=== PATIENT | male | born 1945 | race Caucasian/White ===

== ENCOUNTER → 2017-10-29 06:02 | Outpatient (CLI) | payer MEDICARE, OTHER, SELFPAY ==
[2017-10-29 08:13] LABS: Absolute Lymphocyte Count 3.74 X10^3/ul (0.83-4.51); Absolute Neutrophil Count 5.9 X10^3/uL (2.0-7.7); Basophil# 0.01 X10^3/uL; Basophil% 0.1 % (0-1); Eosinophil# 0.17 X10^3/uL; Eosinophils% 1.6 % (0-5); Hematocrit 43.1 % (40-54); Hemoglobin 14.3 g/dl (13.0-16.5); Lymphocyte # 3.74 X10^3/ul (4.0); Lymphocyte % 35.1 % (19-41); Mean Corp Hgb Conc 33.2 g/gl (32-36); Mean Corpuscular Volume 90.5 fL (80-94); Mean Platelet Vol. 11.2 fl (6.2-12.0); Monocyte# 0.87 X10^3/uL; Monocyte% 8.2 % (0-10); Neutrophil # 5.85 X10^3/uL (2.7-7.7); Neutrophil % 54.7 % (47-70); Platelet Count 275 K/mm3 (150-450); RBC Distribution Width CV 15.2 % (11.6-14.6); RBC Distribution Width SD 50.7 fl (35.1-43.9); Red Blood Count 4.76 M/mm3 (4.6-6.2); White Blood Count 10.7 K/mm3 (4.4-11.0)
[2017-10-29 08:20] LABS: POSITIVE COUNT NO; POSITIVE DIFFERENTIAL NO; POSITIVE MORPHOLOGY NO
[2017-10-29 08:49] LABS: ALB/GLOB Ratio 0.8 RATIO (0.9-2.4); AST(SGOT) 28 U/L (15-37); Alanine Aminotransfer ALT/SGPT 42 U/L (16-61); Albumin, Serum 3.7 g/dL (3.2-5.0); Alkaline Phosphatase 59 U/L (45-117); Anion Gap 10 (5-15); BUN 21 mg/dL (7-18); BUN/Creat Ratio 20.8 RATIO (10-20); Calcium,Total 8.7 mg/dL (8.5-10.1); Chloride 105 mmol/L (98-107); Creatinine, Serum 1.01 mg/dL (0.70-1.30); EST Glomerular Filtration Rate 77 mL/min (>60); Est Glom Filt Rate - Afr Amer 93 mL/min (>60); Globulin 4.4 g/dL (2.2-4.2); Glucose 89 mg/dL (70-110); Potassium 3.4 mmol/L (3.5-5.1); Protein, Total 8.1 g/dL (6.4-8.2); Sodium Level 140 mmol/L (136-145)
== END ==
PROVIDERS: Family Provider Family Medicine; PCP Family Medicine; Visit Provider Internal Medicine Rheumatology
DX: M06.00 Rheumatoid arthritis without rheumatoid factor, unspecified site (principal); M15.9 Polyosteoarthritis, unspecified; M47.897 Other spondylosis, lumbosacral region; M51.37 Other intervertebral disc degeneration, lumbosacral region; M47.892 Other spondylosis, cervical region; K21.9 Gastro-esophageal reflux disease without esophagitis; K51.80 Other ulcerative colitis without complications; I10 Essential (primary) hypertension; E78.5 Hyperlipidemia, unspecified; E11.9 Type 2 diabetes mellitus without complications; Z79.899 Other long term (current) drug therapy
CPT/HCPCS: 36415; 80053; 85025

== ENCOUNTER → 2017-11-26 07:30 | Outpatient (CLI) | payer MEDICARE, OTHER, SELFPAY ==
[2017-11-26 08:09] VITALS: BP 153/94; PULSE 84; RESP 18; TEMP 36.4; O2SAT 94; BMI 33.8
[2017-11-26 09:37] VITALS: BP 143/86; PULSE 71; RESP 16; TEMP 36.6
[2017-11-26 09:41] LABS: BNP,B-Type NATRIURETIC PEPTIDE 31.1 pg/mL (0-100)
[2017-11-26 09:45] VITALS: BP 141/85; PULSE 68; RESP 18; TEMP 36.2; O2SAT 91
[2017-11-26 10:00] VITALS: BP 146/85; PULSE 75; RESP 16; TEMP 36.1; O2SAT 95
[2017-11-26 10:24] VITALS: BP 140/85; PULSE 73; RESP 16; TEMP 36.4
[2017-11-26 11:28] VITALS: BP 143/84; PULSE 72; RESP 16; TEMP 36.3; O2SAT 92
== END ==
PROVIDERS: Internal Medicine Pulmonary Disease; Family Provider Family Medicine; PCP Family Medicine; Visit Provider Internal Medicine Rheumatology
DX: M06.09 Rheumatoid arthritis without rheumatoid factor, multiple sites (principal); K51.80 Other ulcerative colitis without complications; I10 Essential (primary) hypertension; R06.00 Dyspnea, unspecified
CPT/HCPCS: 36415; 83880; 85379; 96413; 96415; J7050; A4216; Q5102

== ENCOUNTER → 2017-11-27 13:52 | Outpatient (CLI) | payer MEDICARE, OTHER, SELFPAY ==
--- NOTE | 2017-11-27 13:57 | VDLE_ITS ---
Reason For Study: EDEMA RIGHT LEFT GSV is normal. GSV is normal. CFV is compressible, spontaneous, phasic, CFV is compressible, spontaneous, phasic, competent and demonstrates normal competent, and demonstrates normal augmentation. augmentation. FV is compressible, spontaneous, phasic, FV is compressible, spontaneous, phasic, competent and demonstrates normal competent and demonstrates normal augmentation. augmentation. POP V is compressible, spontaneous, phasic, POP V is compressible, spontaneous, phasic, competent and demonstrates normal competent and demonstrates normal augmentation. augmentation. T/P Trunk is compressible. T/P Trunk is compressible. PTV is compressible. PTV is compressible. RT PerV is compressible. LT PerV is compressible. Procedure Exam performed in department. The exam was diagnostic. A preliminary report was called and/or faxed to DR. Lange @ [phone] @ 2:30 pm. Interpretation Summary Deep veins of the lower extremities are bilaterally patent and compressible segmentally. There is no evidence of deep vein thrombosis on either side. Valvular competence appears intact within the proximal deep venous systems bilaterally. The greater saphenous veins appear bilaterally patent and compressible segmentally. Ordering Physician: Devon Lange Referring Physician: Jayme Yang Performed By: Terri Butler, JOE, RVT
== END ==
PROVIDERS: Family Provider Family Medicine; PCP Family Medicine; Visit Provider Internal Medicine Pulmonary Disease
DX: R60.0 Localized edema (principal); R06.00 Dyspnea, unspecified
CPT/HCPCS: 93970

== ENCOUNTER → 2017-12-05 11:07 | Outpatient (CLI) | payer MEDICARE, OTHER, SELFPAY ==
--- NOTE | 2017-12-05 11:12 | RAD_ITS ---
STUDY: X-RAY CHEST REASON FOR EXAM: Male, 72 years old. Cough. TECHNIQUE: Frontal and lateral views of the chest. COMPARISON: 11/04/2016 and 10/24/2017. CTA chest 11/04/2016. FINDINGS: The lungs are clear and expanded. There is no demonstrated pleural abnormality. Normal size heart. Right superior mediastinal widening is seen to be due to vascular tortuosity on the CTA chest. Otherwise normal mediastinum and corina. Normal visualized pulmonary arteries. Normal visualized aortic arch and descending thoracic aorta. There are diffuse degenerative changes of the visualized thoracic spine. Normal visualized ribs, clavicles, and shoulders. There is no demonstrated abnormality of the visualized soft tissue structures of the upper abdomen. RAD/Chest PA and Lateral IMPRESSION: No evidence for acute cardiopulmonary pathology. Electronically Signed: Eligio King MD at 3:36 EST , Service support ,
== END ==
PROVIDERS: Family Provider Family Medicine; PCP Family Medicine; Visit Provider Family Medicine
DX: R05 Cough (principal)
CPT/HCPCS: 71046

== ENCOUNTER → 2018-01-21 08:20 | Outpatient (CLI) | payer MEDICARE, OTHER, SELFPAY ==
[2018-01-21 08:39] VITALS: BP 149/91; PULSE 84; RESP 18; TEMP 36.4; O2SAT 93; BMI 33.6
[2018-01-21 10:01] VITALS: BP 143/93; PULSE 78; RESP 16
[2018-01-21 10:12] VITALS: BP 144/82; PULSE 74; RESP 16; TEMP 36.6
[2018-01-21 10:25] VITALS: BP 146/88; PULSE 74; RESP 16; TEMP 36.5
[2018-01-21 10:42] VITALS: BP 147/85; PULSE 74; RESP 16; TEMP 36.3; O2SAT 92
[2018-01-21 11:53] VITALS: BP 150/89; PULSE 77; RESP 16; TEMP 36.5; O2SAT 93
== END ==
PROVIDERS: Family Provider Family Medicine; PCP Family Medicine; Visit Provider Internal Medicine Rheumatology
DX: M06.09 Rheumatoid arthritis without rheumatoid factor, multiple sites (principal); K51.90 Ulcerative colitis, unspecified, without complications
CPT/HCPCS: J7050; A4216; Q5103

== ENCOUNTER 2018-01-22 08:55 | Inpatient (IN) | payer MEDICARE, OTHER, SELFPAY ==
[2018-01-22] VITALS (19 sets, daily range): BP systolic 141–195; BP diastolic 83–109; PULSE 60–114; RESP 16–24; TEMP 36.6–37.1; O2SAT 93–97; BMI 32.9; BMI 33.3
--- NOTE | 2018-01-22 09:22 | EKG12_ITS ---
Test Reason : CP/SOB Blood Pressure : / mmHG Vent. Rate : 098 BPM Atrial Rate : 098 BPM P-R Int : 170 ms QRS Dur : 090 ms QT Int : 340 ms P-R-T Axes : 037 -31 -01 degrees QTc Int : 434 ms Normal sinus rhythm Left axis deviation Septal infarct , age undetermined Inferior infarct , age undetermined Abnormal ECG Confirmed by ALBA LAUGHLIN, JAKE ([id number]), senior technical editor MANA LINTON ([id number]) on 01/24/2018 1:03:19 PM Referred By: Marycruz Yen Confirmed By:JAKE WILLIS MD
[2018-01-22] MEDS: Ipratropium/Albuterol Sulfate 3 ML AMPUL.NEB INHALATION ×2 (09:31→19:32)
[2018-01-22 09:32] LABS: Absolute Lymphocyte Count 2.24 X10^3/ul (0.83-4.51); Absolute Neutrophil Count 4.5 X10^3/uL (2.0-7.7); Basophil# 0.01 X10^3/uL; Basophil% 0.1 % (0-1); Eosinophil# 0.21 X10^3/uL; Eosinophils% 2.8 % (0-5); Hematocrit 41.6 % (40-54); Hemoglobin 13.8 g/dl (13.0-16.5); Lymphocyte # 2.24 X10^3/ul (4.0); Lymphocyte % 29.5 % (19-41); Mean Corp Hgb Conc 33.2 g/gl (32-36); Mean Corpuscular Hgb 29.7 pg (27.0-32.0); Mean Corpuscular Volume 89.7 fL (80-94); Mean Platelet Vol. 10.7 fl (6.2-12.0); Monocyte# 0.63 X10^3/uL; Monocyte% 8.3 % (0-10); Neutrophil % 59.2 % (47-70); POSITIVE COUNT NO; POSITIVE DIFFERENTIAL NO; POSITIVE MORPHOLOGY NO; Platelet Count 211 K/mm3 (150-450); RBC Distribution Width CV 14.7 % (11.6-14.6); RBC Distribution Width SD 47.6 fl (35.1-43.9); Red Blood Count 4.64 M/mm3 (4.6-6.2); White Blood Count 7.6 K/mm3 (4.4-11.0)
[2018-01-22 09:48] LABS: Anion Gap 8 (5-15); BUN 20 mg/dL (7-18); Calcium,Total 9.1 mg/dL (8.5-10.1); Chloride 103 mmol/L (98-107); Creatinine, Serum 1.33 mg/dL (0.70-1.30); EST Glomerular Filtration Rate 56 mL/min (>60); Est Glom Filt Rate - Afr Amer 68 mL/min (>60); Estimated Creatinine Clearance 46.25 ml/min; Glucose 218 mg/dL (74-106); Potassium 3.6 mmol/L (3.5-5.1); Sodium Level 138 mmol/L (136-145)
[2018-01-22] MEDS: 0.9% Normal Saline 1,000 ML 150 ML IV (09:48)
[2018-01-22] MEDS: Clopidogrel Bisulfate 75 MG Tablet PO (09:48)
--- NOTE | 2018-01-22 10:07 | RAD_ITS ---
STUDY: X-RAY CHEST REASON FOR EXAM: Male, 72 years old. Cough. TECHNIQUE: Single AP portable view of the chest. COMPARISON: December 05, 2017. FINDINGS: Cardiac monitoring leads are present. Lungs are expanded. There is mild interstitial thickening present in both lungs. There is no demonstrated pleural abnormality. There is borderline cardiomegaly. There are calcified mediastinal and hilar lymph nodes. Normal visualized pulmonary arteries. There is atherosclerotic calcification of the aortic arch with tortuosity. There are diffuse degenerative changes of the visualized thoracic spine. There are degenerative changes of both shoulders. Patient has had previous cervical spine surgery. There is no demonstrated abnormality of the visualized soft tissue structures of the upper abdomen. RAD/Chest 1 View (Portable) IMPRESSION: No radiographic evidence of acute cardiopulmonary disease. Electronically Signed: Celestina Miller MD at 10:59 EDT , Service support ,
[2018-01-22 10:10] LABS: BNP,B-Type NATRIURETIC PEPTIDE 49.6 pg/mL (0-100)
[2018-01-22] MEDS: fentaNYL 100 MCG/2 ML Ampul 50 MCG IV ×2 (10:36→13:03)
--- NOTE | 2018-01-22 10:40 | CT_ITS ---
STUDY: CTA CHEST REASON FOR EXAM: Male, 72 years old. Dyspnea and left arm pain. RADIATION DOSAGE (If Supplied By Facility): CTDIvol = ( 19.40 ) mGy, DLP = ( 676.65 ) mGycm TECHNIQUE: The examination was performed with the intravenous administration of 100 ml of Isovue 370 contrast material. Post-processing of the angiographic images was performed, with multiplanar reformation and 3D reconstruction. Individualized dose optimization techniques were used for this CT. COMPARISON: None. FINDINGS: Normal enhancement of the main pulmonary artery and right and left pulmonary arteries. Normal enhancement of the bilateral peripheral pulmonary arteries. There is no demonstrated pulmonary embolism. Normal thoracic aorta and visualized great vessels except for multifocal calcified plaque. There is no demonstrated aortic dissection. Normal heart and pericardium. Normal mediastinum. Normal hilar regions. Normal visualized trachea and bronchi. The lungs are well expanded. There is bilateral dependent atelectasis, a subcentimeter calcified granuloma within the anterior left upper lobe and minimal tubular bronchiectasis diffusely. There is an accessory azygous lobe. There is no pleural effusion. There is no pneumothorax. Normal chest wall structures. Normal osseous structures. There is a 2.5 cm left adrenal mass measuring fat density consistent with adenolipoma. CT/CTA Chest W/WO Contrast IMPRESSION: No demonstrated pulmonary embolism or arterial dissection. Bilateral dependent atelectasis. Calcified granuloma within left upper lobe. Minimal multifocal tubular bronchiectasis. Accessory azygos lobe. 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 Electronically Signed: Umair Joyce MD at 13:01 EDT , Service support ,
--- NOTE | 2018-01-22 11:34 | ED.RN ---
PT REPORTS INCREASED PAIN. DR. HE INFORMED. AWAITING FURTHER ORDERS. WILL CONTINUE TO MONITOR.
[2018-01-22] MEDS: HYDROmorphone 1 MG/ML Syringe IV (11:47)
--- NOTE | 2018-01-22 13:12 | VDUE_ITS ---
Reason For Study: PAIN Left Proximal Left jugular vein is spontaneous, widely patent, phasic, with no intraluminal echogenicity noted. Left subclavian vein is spontaneous, widely patent, phasic, with no intraluminal echogenicity noted. Left Arm Left axillary vein is spontaneous, patent, phasic, competent, compressible and demonstrates augmentation. Left brachial vein is compressible. Left cephalic vein is compressible. Left basilic vein is compressible. Left Lower Arm Left radial vein is compressible. Left ulnar vein is compressible. < Interpretation Summary Deep veins of the left upper extremity are patent and compressible segmentally. There is no evidence of deep vein thrombosis. The superficial veins of the left upper extremity, the basilic and cephalic veins, are patent and compressible. There is no evidence of left upper extremity superficial thrombophlebitis involving the veins imaged. Ordering Physician: Audrey Smith Referring Physician: SUMEET HARRY Performed By: Karen Pierre, JOE, RVT
--- NOTE | 2018-01-22 13:18 | ED.RN ---
Pt c/o increasing pain to left arm. Swelling to fingers and hand. physician aware. Pt skin warm with brisk cap refill ro finger tips. Bounding radial pulse noted.
--- NOTE | 2018-01-22 14:09 | ED.VISSUMM ---
- ER Visit Summary Date of Service: 01/22/18 Chief Complaint: [Shortness of breath and chest pain] History of Present Illness: The patient is a 72 M [presents to the emergency department chief complaint of shortness of breath that he has had ongoing for 2-3 months. 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 Patient also developed discomfort in his left arm since yesterday. Patient's had some chest soreness. Patient has been coughing which is been a chronic issue at times coughing up yellow phlegm time whitish. Patient states that he just recently finished 4 day course of his own. Patient denies any fevers at home. Patient states she has had a cough for over 3 months.] Physical Examination: [HEENT-PERRLA, EOMI. Cranial nerves II through XII grossly intact. TMs clear. Mucous membranes moist. No adenopathy. Cardiovascular-regular rate and rhythm without murmur or ectopy Lungs-aeration bilaterally. Patient has expiratory wheezes bilaterally. No accessory muscle use or retractions. Abdomen-normoactive bowel sounds, soft, nontender, no rebound or rigidity, no peritoneal signs. 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 CBC with differential showed a white count of 7.6, hemoglobin 13.8, hematocrit 42, platelets 211. Chemistries unremarkable. Troponin was less than 0.02. BNP was 49.6. CTA of the chest showed no evidence for PE or dissection venous duplex of his left arm revealed no DVT.] Emergency Department Course and Treatment: [She was medicated with fentanyl and Dilaudid and continues to complain of pain in his left wrist and hand.] Patient was given Solu-Medrol 125 mill grams IV. Patient was given a DuoNeb aerosol. Treatment Plan: [Admit.] Disposition: [Admit] Impression: [Intractable left arm pain COPD exacerbation] This note was generated with [employer] dictation software. It may contain incorrect words, spelling, and punctuation that were not noted in review of the chart prior to signing ED Disposition - Plan for ED Patient: Chief Complaint: Shortness of Breath Referrals: Jayme Yang MD [Primary Care Provider] -
[2018-01-22] MEDS: MethylPREDNISolone 125 MG/2 ML Vial IV (14:16)
--- NOTE | 2018-01-22 14:16 | ED.DCSUM_ITS ---
- ER Visit Summary Date of Service: 01/22/18 Chief Complaint: [Shortness of breath and chest pain] History of Present Illness: The patient is a 72 M [presents to the emergency department chief complaint of shortness of breath that he has had ongoing for 2- 3 months. 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 Patient also developed discomfort in his left arm since yesterday. Patient's had some chest soreness. Patient has been coughing which is been a chronic issue at times coughing up yellow phlegm time whitish. Patient states that he just recently finished 4 day course of his own. Patient denies any fevers at home. Patient states she has had a cough for over 3 months.] Physical Examination: [HEENT-PERRLA, EOMI. Cranial nerves II through XII grossly intact. TMs clear. Mucous membranes moist. No adenopathy. Cardiovascular-regular rate and rhythm without murmur or ectopy Lungs-aeration bilaterally. Patient has expiratory wheezes bilaterally. No accessory muscle use or retractions. Abdomen-normoactive bowel sounds, soft, nontender, no rebound or rigidity, no peritoneal signs. 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 CBC with differential showed a white count of 7.6, hemoglobin 13.8, hematocrit 42, platelets 211. Chemistries unremarkable. Troponin was less than 0.02. BNP was 49.6. CTA of the chest showed no evidence for PE or dissection venous duplex of his left arm revealed no DVT.] Emergency Department Course and Treatment: [She was medicated with fentanyl and Dilaudid and continues to complain of pain in his left wrist and hand.] Patient was given Solu-Medrol 125 mill grams IV. Patient was given a DuoNeb aerosol. Treatment Plan: [Admit.] Disposition: [Admit] Impression: [Intractable left arm pain COPD exacerbation] This note was generated with [employer] dictation software. It may contain incorrect words, spelling, and punctuation that were not noted in review of the chart prior to signing ED Disposition - Plan for ED Patient: Chief Complaint: Shortness of Breath Referrals: Jayme Yang MD [Primary Care Provider] -
--- NOTE | 2018-01-22 15:39 | RAD_ITS ---
STUDY: X-RAY - LEFT WRIST REASON FOR EXAM: Male, 72 years old. Right wrist pain TECHNIQUE: 3 view(s) of the wrist were obtained. COMPARISON: None. FINDINGS: Normal visualized distal radius and ulna. There is mild degenerative arthrosis of the radiocarpal articulation. Normal distal radioulnar articulation. Normal carpal bones. Normal carpal articulations. Normal carpometacarpal articulation of the thumb. Normal second through fifth carpometacarpal articulations. Large osteophytes seen off the distal third metacarpal, otherwise normal visualized metacarpal bones. The soft tissue structures are unremarkable except for 2 mm metal density in the soft tissues of the dorsal distal forearm. . RAD/Wrist min 3 Views IMPRESSION: Radiocarpal degenerative changes otherwise negative. Electronically Signed: Yong Em MD at 16:32 EDT , Service support ,
--- NOTE | 2018-01-22 15:40 | NURSING ---
Dr. Ballard's office contacted for med list to verify pt's home medication list.
--- NOTE | 2018-01-22 15:56 | PCM.HP.STD ---
Problem List (1) Cough productive of purulent sputum Status: Acute (2) Left wrist pain Status: Acute History of Present Illness Date of Admission: 01/22/18 Chief Complaint: Cough with yellow sputum production, left wrist pain The patient is a 72 year old M who was seen in the emergency room at [facility] with a chief complaint of a cough productive of yellow sputum ?1 week, patient was placed on Levaquin as an outpatient and he has been taking it for approximately 6 days, he was on 5 days of prednisone 40 mg daily also. He also complained of severe left wrist pain for the last 5 days. Patient has a history of rheumatoid arthritis and has been treated for approximately 10 years, he currently is on Remicade. Patient denies any trauma of the wrist, he denies any neck pain, patient denies any fever, chills, or hemoptysis. Patient is currently seeing a pulmonary doctor and is on CPAP, uses oxygen at night at 2 L along with his CPAP. He states he has been on CPAP for approximately a year. Evaluation in the emergency room revealed the patient to have expiratory wheezes bilaterally, chest x-ray showed no acute infiltrate, CTA of the chest was performed which showed bilateral lower lobe atelectasis along with multifocal areas of bronchiectasis which were minimal. X-rays of the patient's left wrist were not obtained by the emergency room physician Examination of the patient's wrist revealed to be tender to palpation on the left, I did not appreciate marked swelling of the left wrist. Patient was given an aerosol treatment by the emergency room physician and IV Solu-Medrol, IV pain medication was given to the patient for his left wrist pain but he continued to have pain in his left wrist despite being given fentanyl and Dilaudid. Patient will be admitted for exacerbation of COPD and left wrist pain, I have called Ward Martin to consult on the patient's wrist pain, I ordered wrist x-rays on him, he will be placed on IV Solu-Medrol and aerosol treatments. Patient requires oxygen to maintain his pulse ox above 90 at this time Past Medical History Past Medical History (Chronic Problems): Chronic Problems DM2 (diabetes mellitus, type 2) (Chronic) Inflammatory bowel disease (Chronic) Benign essential HTN (Chronic) Rheumatoid aortitis (Chronic) Allergies aspirin Allergy (Verified 01/22/18 08:55) Swelling morphine Adverse Reaction (Verified 01/22/18 08:55) UNABLE TO URINATE Home Medications: Ambulatory Orders Medication Instructions Recorded Amlodipine/Benazepril [Lotrel 1 capsule PO DAILY 07/20/13 10-40 MG Capsule] Calcium (Elemental) [Caltrate-600] 600 mg PO DAILY 07/20/13 Duloxetine Hcl [Cymbalta] 30 mg PO BID 07/20/13 Gabapentin [Neurontin] 1,200 mg PO BIDCM 07/20/13 Multivit-Min/FA/Lycopene/Lut 1 dose PO DAILY 07/20/13 [Century Mature Formula Tablet] Whitman-3 Fatty Acids/Fish Oil [Fish 1 each PO DAILY 07/20/13 Oil 1,000 mg Softgel] Finasteride [Proscar] 5 mg PO DAILY 03/14/15 Metformin HCl [Glucophage] 1,000 mg PO BIDCM 03/14/15 Balsalazide Disodium 2,250 mg PO BID 11/04/16 Simvastatin [Zocor] 40 mg PO QHS 11/04/16 Chlorthalidone [Hygroton] 50 mg PO DAILY 12/24/16 Infliximab-DYYB [Inflectra] 100 mg IV X1 02/18/17 Esomeprazole Magnesium [Nexium 22.3 mg PO DAILY 04/15/17 24Hr] Loratadine [Claritin] 10 mg PO QHS 04/15/17 Albuterol Sulfate [Ventolin Hfa] 2 puff INHALATION Q4H PRN 01/22/18 Clonidine HCl [Catapres] 0.2 mg PO BID 01/22/18 Fluticasone/Vilanterol [Breo 1 each INHALATION DAILY 01/22/18 Ellipta 100-25 Mcg INH] Glimepiride [Amaryl] 2 mg PO QHS 01/22/18 Metoprolol Tartrate [Lopressor 50 mg PO BID 01/22/18 (beta andrey)] levoFLOXacin tablet [Levaquin 500 mg PO DAILY 01/22/18 tablet] Surgical History: - - Fusion of the cervical spine, lumbar spine surgery, bilateral knee replacements, partial colon resection due to diverticulitis Psychiatric History: No pertinent psych hx Lives: Spouse/ Significant Other Smoking Status: Former smoker Alcohol: None Drugs: None - *Family History Maternal History Items: Heart Disease Paternal History Items: COPD, Heart Disease Review of Systems Constitutional: Denies: Anorexia, Chills, Fever, Night Sweats, Malaise, Weakness, Weight Change, Fatigue Eyes: Denies: Blurred vision, Cataracts, Conjunctivae Inflammation, Double vision, Pain HEENT: Denies: Difficulty Swallowing, Dysphasia, Ear Pain, Eye Pain, Head Aches, Hearing Changes, Nasal bleeding, Nasal Congestion Cardiovascular: Denies: Chest Pain, Claudication, Chest Pressure, Chest Tightness, Edema, Heaviness, Palpitations, Paroxysmal Noc. Dyspnea, Syncope Respiratory: Reports: Cough, Sputum production, Wheezing. Denies: Hemoptysis, Shortness of breath at rest, Shortness of breath upon exertion Gastrointestinal: Denies: Abdominal Pain, Constipation, Diarrhea, Hematemesis, Hematochezia, Nausea, Melena, Vomiting Genitourinary: Denies: Dysuria, Frequency, Hematuria, Hesitancy, Nocturia, Retention, Urgency Musculoskeletal: Reports: Hand Pain - Left Hand and wrist pain, Joint Pain - Left wrist pain, Joint Tenderness - Left wrist is tender to palpation. Denies: Foot Pain, Joint stiffness, Joint swelling, Leg Pain, Shoulder Pain Skin: Denies: Dryness, Jaundice, Pruritis, Rash Neurological: Denies: Balance problems, Blurred vision, Double vision, Slurred speech, Difficulty swallowing, Focal weakness, Headaches, Incoordination, Numbness, Tingling Psychiatric: Denies: Anxiety, Depression, Homicidal Ideations, Suicidal Ideations Endocrine: Denies: Change in Body Habitus, Heat/ Cold Intolerance, Polydipsia, Polyuria Hematologic/ Lymphatic: Denies: Adenopathy, Anemia, Easy Bruising, Easy Bleeding, Petechiae, Purpura VTE Information - Inpt Only VTE Present on Admission: No VTE Mechan Device Prophylaxis: None VTE Pharm Prophylaxis ordered?: Yes Patient Problems: Active and Suspected Problems Cough productive of purulent sputum (Acute) Left wrist pain (Acute) - Physical Exam General: Alert, Oriented x3, Cooperative, No apparent distress, Well developed, Well nourished HEENT: Atraumatic, PERRLA, EOMI, Normocephalic Oral: Moist Mucosa Neck: Supple, No JVD, Negative Carotid Bruits, No Nuchal Rigidity, Trachea Midline, Thyroid Normal Size and Texture Lungs: Normal air movement, No rhonchi, Rales - There are mild inspiratory rales at the bases bilaterally, Wheezes - Patient has diffuse expiratory wheezes bilaterally Cardiovascular: Regular rate, Regular Rhythm, Normal S1, Normal S2, No murmurs, No Ectopic Activity, PMI Normal, No rub noted, No Gallop Abdomen: Bowel Sounds Present, Soft, Non Tender, Non-Distended, No hernias noted Extremities: No clubbing, No cyanosis, No edema, Capillary Refill Less than 3 Seconds, Tenderness - Patient has tenderness to palpation over the left wrist and proximal hand area Skin: No rashes, No breakdown Musculoskeletal: No Muscle Wasting, Tenderness - tenderness over the left wrist and proximal hand area to palpation Neurological: Cranial nerves II-XII grossly intact, Neuro grossly intact, Sensory exam intact to light touch and pain, Coordination normal Psych/Mental Status: Normal Affect, Appropriate, Alert and oriented to time, place, person, mood and affect Vital Signs Temp Pulse Resp BP Pulse Ox 98.7 F 76 16 145/86 H 97 01/22/18 14:18 01/22/18 14:18 01/22/18 14:18 01/22/18 14:18 01/22/18 14:18 Assessment/Plan Active and Suspected Problems Cough productive of purulent sputum (Acute) Left wrist pain (Acute) 1 acute exacerbation of COPD-patient will be admitted to [facility], IV Solu-Medrol will be given, patient will be kept on oral Levaquin, oxygen saturation will be monitored, aerosol treatments will be given, respiratory panel will be obtained #2 left wrist pain-probably secondary to flareup of rheumatoid disease, patient's left wrist will be x-ray, he will be seen by orthopedic surgery-I contacted Dr. Ward Martin for consultation, patient will be given IV pain meds as well as IV corticosteroids #3 rheumatoid arthritis #4 obstructive sleep apnea-patient uses BiPAP at night #5 hypoxia-probably secondary to #1, patient's O2 sat will be monitored #6 ulcerative colitis-patient takes chronic medication for this, this will be continued #7 type 2 diabetes-sliding scale insulin will be administered per protocol, patient will need to be off his metformin due to his CTA of his chest Code Visit [facility]
[2018-01-22] MEDS: Albuterol 2.5 MG/3 ML VIAL.NEB. INHALATION (16:02)
--- NOTE | 2018-01-22 16:08 | HP.PCM_ITS ---
Problem List (1) Cough productive of purulent sputum Status: Acute (2) Left wrist pain Status: Acute History of Present Illness Date of Admission: 01/22/18 Chief Complaint: Cough with yellow sputum production, left wrist pain The patient is a 72 year old M who was seen in the emergency room at [facility] with a chief complaint of a cough productive of yellow sputum ?1 week, patient was placed on Levaquin as an outpatient and he has been taking it for approximately 6 days, he was on 5 days of prednisone 40 mg daily also. He also complained of severe left wrist pain for the last 5 days. Patient has a history of rheumatoid arthritis and has been treated for approximately 10 years, he currently is on Remicade. Patient denies any trauma of the wrist, he denies any neck pain, patient denies any fever, chills, or hemoptysis. Patient is currently seeing a pulmonary doctor and is on CPAP, uses oxygen at night at 2 L along with his CPAP. He states he has been on CPAP for approximately a year. Evaluation in the emergency room revealed the patient to have expiratory wheezes bilaterally, chest x-ray showed no acute infiltrate, CTA of the chest was performed which showed bilateral lower lobe atelectasis along with multifocal areas of bronchiectasis which were minimal. X-rays of the patient's left wrist were not obtained by the emergency room physician Examination of the patient's wrist revealed to be tender to palpation on the left, I did not appreciate marked swelling of the left wrist. Patient was given an aerosol treatment by the emergency room physician and IV Solu-Medrol, IV pain medication was given to the patient for his left wrist pain but he continued to have pain in his left wrist despite being given fentanyl and Dilaudid. Patient will be admitted for exacerbation of COPD and left wrist pain , I have called Ward Martin to consult on the patient's wrist pain, I ordered wrist x-rays on him, he will be placed on IV Solu-Medrol and aerosol treatments. Patient requires oxygen to maintain his pulse ox above 90 at this time Past Medical History Past Medical History (Chronic Problems): Chronic Problems DM2 (diabetes mellitus, type 2) (Chronic) Inflammatory bowel disease (Chronic) Benign essential HTN (Chronic) Rheumatoid aortitis (Chronic) Allergies aspirin Allergy (Verified 01/22/18 08:55) Swelling morphine Adverse Reaction (Verified 01/22/18 08:55) UNABLE TO URINATE Home Medications: Ambulatory Orders Medication Instructions Recorded Amlodipine/Benazepril [Lotrel 1 capsule PO DAILY 07/20/13 10-40 MG Capsule] Calcium (Elemental) [Caltrate-600] 600 mg PO DAILY 07/20/13 Duloxetine Hcl [Cymbalta] 30 mg PO BID 07/20/13 Gabapentin [Neurontin] 1,200 mg PO BIDCM 07/20/13 Multivit-Min/FA/Lycopene/Lut 1 dose PO DAILY 07/20/13 [Century Mature Formula Tablet] [place]-3 Fatty Acids/Fish Oil [Fish 1 each PO DAILY 07/20/13 Oil 1,000 mg Softgel] Finasteride [Proscar] 5 mg PO DAILY 03/14/15 Metformin HCl [Glucophage] 1,000 mg PO BIDCM 03/14/15 Balsalazide Disodium 2,250 mg PO BID 11/04/16 Simvastatin [Zocor] 40 mg PO QHS 11/04/16 Chlorthalidone [Hygroton] 50 mg PO DAILY 12/24/16 Infliximab-DYYB [Inflectra] 100 mg IV X1 02/18/17 Esomeprazole Magnesium [Nexium 22.3 mg PO DAILY 04/15/17 24Hr] Loratadine [Claritin] 10 mg PO QHS 04/15/17 Albuterol Sulfate [Ventolin Hfa] 2 puff INHALATION Q4H PRN 01/22/18 Clonidine HCl [Catapres] 0.2 mg PO BID 01/22/18 Fluticasone/Vilanterol [Breo 1 each INHALATION DAILY 01/22/18 Ellipta 100-25 Mcg INH] Glimepiride [Amaryl] 2 mg PO QHS 01/22/18 Metoprolol Tartrate [Lopressor 50 mg PO BID 01/22/18 (beta andrey)] levoFLOXacin tablet [Levaquin 500 mg PO DAILY 01/22/18 tablet] Surgical History: - - Fusion of the cervical spine, lumbar spine surgery, bilateral knee replacements, partial colon resection due to diverticulitis Psychiatric History: No pertinent psych hx Lives: Spouse/ Significant Other Smoking Status: Former smoker Alcohol: None Drugs: None - *Family History Maternal History Items: Heart Disease Paternal History Items: COPD, Heart Disease Review of Systems Constitutional: Denies: Anorexia, Chills, Fever, Night Sweats, Malaise, Weakness , Weight Change, Fatigue Eyes: Denies: Blurred vision, Cataracts, Conjunctivae Inflammation, Double vision, Pain HEENT: Denies: Difficulty Swallowing, Dysphasia, Ear Pain, Eye Pain, Head Aches , Hearing Changes, Nasal bleeding, Nasal Congestion Cardiovascular: Denies: Chest Pain, Claudication, Chest Pressure, Chest Tightness, Edema, Heaviness, Palpitations, Paroxysmal Noc. Dyspnea, Syncope Respiratory: Reports: Cough, Sputum production, Wheezing. Denies: Hemoptysis, Shortness of breath at rest, Shortness of breath upon exertion Gastrointestinal: Denies: Abdominal Pain, Constipation, Diarrhea, Hematemesis, Hematochezia, Nausea, Melena, Vomiting Genitourinary: Denies: Dysuria, Frequency, Hematuria, Hesitancy, Nocturia, Retention, Urgency Musculoskeletal: Reports: Hand Pain - Left Hand and wrist pain, Joint Pain - Left wrist pain, Joint Tenderness - Left wrist is tender to palpation. Denies: Foot Pain, Joint stiffness, Joint swelling, Leg Pain, Shoulder Pain Skin: Denies: Dryness, Jaundice, Pruritis, Rash Neurological: Denies: Balance problems, Blurred vision, Double vision, Slurred speech, Difficulty swallowing, Focal weakness, Headaches, Incoordination, Numbness, Tingling Psychiatric: Denies: Anxiety, Depression, Homicidal Ideations, Suicidal Ideations Endocrine: Denies: Change in Body Habitus, Heat/ Cold Intolerance, Polydipsia, Polyuria Hematologic/ Lymphatic: Denies: Adenopathy, Anemia, Easy Bruising, Easy Bleeding , Petechiae, Purpura VTE Information - Inpt Only VTE Present on Admission: No VTE Mechan Device Prophylaxis: None VTE Pharm Prophylaxis ordered?: Yes Patient Problems: Active and Suspected Problems Cough productive of purulent sputum (Acute) Left wrist pain (Acute) - Physical Exam General: Alert, Oriented x3, Cooperative, No apparent distress, Well developed, Well nourished HEENT: Atraumatic, PERRLA, EOMI, Normocephalic Oral: Moist Mucosa Neck: Supple, No JVD, Negative Carotid Bruits, No Nuchal Rigidity, Trachea Midline, Thyroid Normal Size and Texture Lungs: Normal air movement, No rhonchi, Rales - There are mild inspiratory rales at the bases bilaterally, Wheezes - Patient has diffuse expiratory wheezes bilaterally Cardiovascular: Regular rate, Regular Rhythm, Normal S1, Normal S2, No murmurs, No Ectopic Activity, PMI Normal, No rub noted, No Gallop Abdomen: Bowel Sounds Present, Soft, Non Tender, Non-Distended, No hernias noted Extremities: No clubbing, No cyanosis, No edema, Capillary Refill Less than 3 Seconds, Tenderness - Patient has tenderness to palpation over the left wrist and proximal hand area Skin: No rashes, No breakdown Musculoskeletal: No Muscle Wasting, Tenderness - tenderness over the left wrist and proximal hand area to palpation Neurological: Cranial nerves II-XII grossly intact, Neuro grossly intact, Sensory exam intact to light touch and pain, Coordination normal Psych/Mental Status: Normal Affect, Appropriate, Alert and oriented to time, place, person, mood and affect Vital Signs Temp Pulse Resp BP Pulse Ox 98.7 F 76 16 145/86 H 97 01/22/18 14:18 01/22/18 14:18 01/22/18 14:18 01/22/18 14:18 01/22/18 14:18 Assessment/Plan Active and Suspected Problems Cough productive of purulent sputum (Acute) Left wrist pain (Acute) 1 acute exacerbation of COPD-patient will be admitted to [facility], IV Solu- Medrol will be given, patient will be kept on oral Levaquin, oxygen saturation will be monitored, aerosol treatments will be given, respiratory panel will be obtained #2 left wrist pain-probably secondary to flareup of rheumatoid disease, patient' s left wrist will be x-ray, he will be seen by orthopedic surgery-I contacted Dr. Ward Martin for consultation, patient will be given IV pain meds as well as IV corticosteroids #3 rheumatoid arthritis #4 obstructive sleep apnea-patient uses BiPAP at night #5 hypoxia-probably secondary to #1, patient's O2 sat will be monitored #6 ulcerative colitis-patient takes chronic medication for this, this will be continued #7 type 2 diabetes-sliding scale insulin will be administered per protocol, patient will need to be off his metformin due to his CTA of his chest Code [facility]
[2018-01-22 17:10] LABS: Bedside Glucose 168 mg/dL (70-110)
[2018-01-22] MEDS: Gabapentin 600 MG Tablet 1200 MG PO (17:32)
[2018-01-22] MEDS: oxyCODONE 5 MG Tablet PO (17:32)
[2018-01-22] MEDS: BALSALAZIDE DISODIUM 750 MG CAPSULE 2250 MG PO (18:17)
[2018-01-22] MEDS: MethylPREDNISolone 125 MG/2 ML Vial 60 MG IV (21:05)
[2018-01-22] MEDS: Heparin Injection (Vial) 5,000 UNIT/ML VIAL 5000 UNIT SC (21:06)
[2018-01-22] MEDS: cloNIDine HCl 0.2 MG Tablet PO (21:12)
[2018-01-22] MEDS: Glimepiride 2 MG Tablet PO (21:12)
[2018-01-22] MEDS: Metoprolol Tartrate 50 MG Tablet PO (21:12)
[2018-01-22] MEDS: DULoxetine Hcl 30 MG Capsule PO (21:13)
[2018-01-22 21:21] LABS: Bedside Glucose 295 mg/dL (70-110)
[2018-01-23] VITALS (13 sets, daily range): BP systolic 143–175; BP diastolic 86–102; PULSE 89–115; RESP 11–26; TEMP 36.6–36.9; O2SAT 93–97
[2018-01-23] MEDS: Ipratropium/Albuterol Sulfate 3 ML AMPUL.NEB INHALATION ×4 (01:31→19:07)
[2018-01-23] MEDS: Heparin Injection (Vial) 5,000 UNIT/ML VIAL 5000 UNIT SC ×3 (06:22→21:27)
[2018-01-23] MEDS: MethylPREDNISolone 125 MG/2 ML Vial 60 MG IV ×3 (06:22→21:28)
[2018-01-23] MEDS: levoFLOXacin 500 MG Tablet PO (06:23)
[2018-01-23 06:30] LABS: Bedside Glucose 237 mg/dL (70-110)
--- NOTE | 2018-01-23 06:56 | PCM.CONS.GEN ---
Reason for Consult Date of Consultation: 01/23/18 Reason for Consultation: Left wrist pain History of Present Illness: The patient is a 72 year old M who is a patient of Dr. Poncho Miller's practice. Patient was having some difficulty breathing yesterday and having severe pain in his wrist that Tylenol was not alleviating. Because of this combination of issues he did present to the emergency department. They were unable to get his pain under control of his wrist. He has had pain in his wrist for approximately 6 days. He does have a history of rheumatoid arthritis and has been treated on Remicade for approximately 10 years. He denies any trauma or falling. He does have a pulmonary doctor and has had exacerbation of COPD which she was admitted for. He uses 2 L of oxygen at night as well as a CPAP that he is used for approximately 1 year. Patient was admitted to the hospitalist service and orthopedics was subsequently consulted for this wrist pain. He states that he has had essentially complete resolution of his symptoms this morning he does have some swelling in the hand and fingers but otherwise he is doing quite well Past Medical History Past Medical History (Chronic Problems): Chronic Problems DM2 (diabetes mellitus, type 2) (Chronic) Inflammatory bowel disease (Chronic) Benign essential HTN (Chronic) Rheumatoid aortitis (Chronic) Allergies aspirin Allergy (Verified 01/22/18 08:55) Swelling morphine Adverse Reaction (Verified 01/22/18 08:55) UNABLE TO URINATE Home Medications: Ambulatory Orders Medication Instructions Recorded Amlodipine/Benazepril [Lotrel 1 capsule PO DAILY 07/20/13 10-40 MG Capsule] Calcium (Elemental) [Caltrate-600] 600 mg PO DAILY 07/20/13 Duloxetine Hcl [Cymbalta] 30 mg PO BID 07/20/13 Gabapentin [Neurontin] 1,200 mg PO BIDCM 07/20/13 Multivit-Min/FA/Lycopene/Lut 1 dose PO DAILY 07/20/13 [Century Mature Formula Tablet] [place]-3 Fatty Acids/Fish Oil [Fish 1 each PO DAILY 07/20/13 Oil 1,000 mg Softgel] Finasteride [Proscar] 5 mg PO DAILY 03/14/15 Metformin HCl [Glucophage] 1,000 mg PO BIDCM 03/14/15 Balsalazide Disodium 2,250 mg PO BID 11/04/16 Simvastatin [Zocor] 40 mg PO QHS 11/04/16 Chlorthalidone [Hygroton] 50 mg PO DAILY 12/24/16 Infliximab-DYYB [Inflectra] 100 mg IV X1 02/18/17 Esomeprazole Magnesium [Nexium 22.3 mg PO DAILY 04/15/17 24Hr] Loratadine [Claritin] 10 mg PO QHS 04/15/17 Albuterol Sulfate [Ventolin Hfa] 2 puff INHALATION Q4H PRN 01/22/18 Clonidine HCl [Catapres] 0.2 mg PO BID 01/22/18 Fluticasone/Vilanterol [Breo 1 each INHALATION DAILY 01/22/18 Ellipta 100-25 Mcg INH] Glimepiride [Amaryl] 2 mg PO QHS 01/22/18 Ipratropium/Albuterol Sulfate 1 vial INHALATION Q4H PRN 01/22/18 [Duoneb] Metoprolol Tartrate [Lopressor 50 mg PO BID 01/22/18 (beta andrey)] levoFLOXacin tablet [Levaquin 500 mg PO DAILY 01/22/18 tablet] Surgical History: - - Fusion of the cervical spine, lumbar spine surgery, bilateral knee replacements, partial colon resection due to diverticulitis Psychiatric History: No pertinent psych hx Lives: Spouse/ Significant Other Smoking Status: Former smoker Alcohol: None Drugs: None - *Family History Maternal History Items: Heart Disease Paternal History Items: COPD, Heart Disease Review of Systems Constitutional: Denies: Chills, Fever, Weight Change HEENT: Denies: Head Aches, Sinus Congestion, Sinus Drainage Cardiovascular: Denies: Chest Pain, Palpitations Respiratory: Reports: Cough, Shortness of Breath Gastrointestinal: Denies: Abdominal Pain, Nausea, Vomiting Genitourinary: Denies: Dysuria Musculoskeletal: Reports: - - Per history of present illness Skin: Denies: Rash, Wounds Neurological: Denies: Numbness, Tingling, Focal weakness Psychiatric: Denies: Anxiety, Depression, Homicidal Ideations, Suicidal Ideations Patient Problems: Active and Suspected Problems Cough productive of purulent sputum (Acute) Left wrist pain (Acute) - Physical Exam General: Alert, Oriented x3, Cooperative HEENT: Atraumatic, PERRLA, EOMI, Normocephalic Neck: Supple, No JVD Cardiovascular: Regular rate Abdomen: Soft, Non Tender Skin: No rashes, No breakdown Musculoskeletal: - - Focused examination patient's left wrist reveals him to have some minimal swelling to the wrist. He has pain-free active range of motion of the wrist. There is some mild swelling into his fingers. Extension is 45? flexion and 60? he lacks approximately 5% of full composite fist formation secondary to some swelling he is nontender to palpation at the wrist. Full elbow range of motion is noted. Radial pulses 2+. Neurovascularly he is intact. Neurological: Cranial nerves II-XII grossly intact Psych/Mental Status: Normal Affect Vital Signs Temp Pulse Resp BP Pulse Ox 97.9 F 91 13 175/102 H 97 01/23/18 03:00 01/23/18 03:30 01/23/18 03:30 01/23/18 03:00 01/23/18 03:30 Oxygen Flow Rate (L/min) 3 Oxygen Delivery Method Nasal Cannula Weight: 212 lb 11.937 oz Body Mass Index (BMI) 33.3 POC Glucose 01/23/18 01/22/18 01/22/18 06:21 21:16 17:02 POC Glucose 237 H 295 H 168 H Assessment/Plan Active and Suspected Problems Cough productive of purulent sputum (Acute) Left wrist pain (Acute) Left wrist pain History of rheumatoid arthritis Left wrist osteoarthritis I personally reviewed patient's x-rays. These are negative for acute abnormality. Patient does have positive ulnar variance and mild to moderate osteoarthritic changes at the radiocarpal joint. He is currently not having any issue and I suspect that the IV Solu-Medrol has decreased the inflammation in his wrist which could be associated to his history of rheumatoid arthritis or his osteoarthritis. No further intervention is necessary for the rest and patient is certainly welcome to follow with in the future for further evaluation. Orthopedically stable. Thank you for allowing me to assist in the care of this patient
--- NOTE | 2018-01-23 07:17 | PCM.PN.HOSP ---
Patient Problems: Active and Suspected Problems Cough productive of purulent sputum (Acute) Left wrist pain (Acute) Subjective: Patient is a 72-year-old gentleman with past medical history cigar for inflammatory bowel disease, diabetes, hypertension chronic hypoxic respiratory failure sleep apnea who presented with progressive shortness of breath an assessment of obesity with acute exacerbation was made admitted to regular nursing floor for further management 01/23/2018: Patient seen still complains of persistent cough and rib pain Objective: GENERAL: cooperative and alert, HEENT: neck is supple, normal thyroid, CHEST: Diminished to auscultation bilaterally, HEART: Regular S1 S2, no audible murmurs ABDOMEN: soft, non-tender, normoactive bowel sounds, RECTAL: deferred MUSCULOSKELETAL: Full range of motion in all major muscle groups. EXTREMITIES: No edema, no clubbing, no cyanosis. [employer]: Awake, lateralizing signs SKIN: No rash, Vitals/I&O's: Vital Signs Temp Pulse Resp BP Pulse Ox 97.9 F 91 13 175/102 H 97 01/23/18 03:00 01/23/18 03:30 01/23/18 03:30 01/23/18 03:00 01/23/18 03:30 Oxygen Flow Rate (L/min) 3 Oxygen Delivery Method Nasal Cannula Weight: 96.5 kg Body Mass Index (BMI) 33.3 Laboratory Results 01/22/18 17:02: POC Glucose 168 H 01/22/18 21:16: POC Glucose 295 H 01/23/18 06:21: POC Glucose 237 H Current Medications Albuterol Sulfate (Ventolin Aerosols) 2.5 mg INHALATION Q2H PRN PRN PRN Reason: DYSPNEA Last Admin: 01/22/18 16:02 Dose: 2.5 mg Albuterol/Ipratropium (Duoneb) 3 ml INHALATION Q6H.RT JOHANNA Last Admin: 01/23/18 01:31 Dose: 3 ml Amlodipine Besylate (Norvasc) 10 mg PO DAILY JOHANNA Balsalazide (Balsalazide Disodium) 2,250 mg PO BID JOHANNA Last Admin: 01/22/18 18:17 Dose: 2,250 mg Chlorthalidone (Hygroton) 50 mg PO DAILY [facility] Clonidine (Catapres) 0.2 mg PO BID JOHANNA Last Admin: 01/22/18 21:12 Dose: 0.2 mg Duloxetine HCl (Cymbalta) 30 mg PO BID [facility] Last Admin: 01/22/18 21:13 Dose: 30 mg Fentanyl Citrate (Sublimaze (100mcg Ampule)) 50 mcg IV Q3H PRN PRN PRN Reason: SEVERE PAIN (6-10/10) Finasteride (Proscar) 5 mg PO DAILY [facility] Gabap[facility] ([facility]ontin) [facility] Last Admin: 01/22/18 17:32 Dose: 1,200 mg Glimepiride (Amaryl) 2 mg PO QHS [facility] Last Admin: 01/22/18 21:12 Dose: 2 mg Heparin Sodium (Porcine) (Heparin Na) 5,000 unit SC Q8 [facility] Last Admin: 01/23/18 06:22 Dose: 5,000 unit Insulin Aspart (Novolog Flexpen (Bkc)) 0 units SC ACHS [facility] PRN Reason: Protocol Last Admin: 01/23/18 06:21 Dose: 4 u Levofloxacin (Levaquin Tablet) 500 mg PO DAILY@0600 [facility] Stop: 01/25/18 06:01 Last Admin: 01/23/18 06:23 Dose: 500 mg Lisinopril (Zestril) 40 mg PO DAILY [facility] Methylprednisolone (Solu-Medrol) 60 mg IV Q8 [facility] Last Admin: 01/23/18 06:22 Dose: 60 mg Metoprolol Tartrate (Lopressor (Beta Kenji)) 50 mg PO BID [facility] Last Admin: 01/22/18 21:12 Dose: 50 mg Oxycodone HCl (Oxyir) 5 - 10 mg PO Q4H PRN PRN PRN Reason: MOD-SEVERE PAIN (4-10/10) Last Admin: 01/22/18 17:32 Dose: 5 mg Pantoprazole Sodium (Protonix) 20 mg PO BID [facility] Sodium Chloride () 5 - 30 ml IV UD PRN PRN Reason: SALINE FLUSH Medical Necessity - Tobacco Use Smoking Status: Former smoker Assessment/Plan Active and Suspected Problems Cough productive of purulent sputum (Acute) Left wrist pain (Acute) Patient is a 72-year-old gentleman with past medical history cigar for inflammatory bowel disease, diabetes, hypertension chronic hypoxic respiratory failure sleep apnea who presented with progressive shortness of breath an assessment of obesity with acute exacerbation was made admitted to regular nursing floor for further management 1. COPD with acute exacerbation: Patient has been admitted to regular nursing floor where he is currently being managed with bronchodilator treatment in addition to steroids biotics. Please on supplemental oxygen titrated to keep oxygen saturation greater than 90 2. Hypertension-blood pressure controlled, home medications continued with dose adjustment as needed 3. Dyslipidemia-patient is on statin therapy, continued at home dose 4. Diabetes mellitus type 2 did continue with home regimen also placed on Accu-Cheks before meals and at bedtime with sliding scale coverage 5. Rheumatoid arthritis 6. Inflammatory bowel disease: Continue Remicade and balsalazide. 7. Obesity with BMI of 33.3; weight loss advised 8. DVT prophylaxis: Subcu Heparin Code Visit Inpatient E&M: 35071 Subs Hosp L3
[2018-01-23] MEDS: BALSALAZIDE DISODIUM 750 MG CAPSULE 2250 MG PO ×2 (09:27→21:29)
[2018-01-23] MEDS: cloNIDine HCl 0.2 MG Tablet PO ×2 (09:28→21:26)
[2018-01-23] MEDS: DULoxetine Hcl 30 MG Capsule PO ×2 (09:28→21:26)
[2018-01-23] MEDS: Gabapentin 600 MG Tablet 1200 MG PO ×2 (09:28→16:58)
[2018-01-23] MEDS: Metoprolol Tartrate 50 MG Tablet PO ×2 (09:29→21:25)
[2018-01-23] MEDS: Chlorthalidone 50 MG Tablet PO (09:29)
[2018-01-23] MEDS: Finasteride 5 MG Tablet PO (09:30)
[2018-01-23] MEDS: Pantoprazole Sodium 20 MG Tablet PO ×2 (09:30→21:25)
[2018-01-23] MEDS: amLODIPine 10 MG Tablet PO (09:30)
[2018-01-23] MEDS: Lisinopril 40 MG Tablet PO (09:30)
[2018-01-23 12:00] LABS: Bedside Glucose 212 mg/dL (70-110)
--- NOTE | 2018-01-23 12:07 | CASEMGMT ---
See assessment. SW spoke w/pt in room. Pt is normally independent at home, lives home w/. Also, pt's son is on hospice, dying from cancer and is staying at their home. Pt, his and daughter are caring for their son. Support given. Pt also states he gets an infusion every 8 weeks here at the hospital. Pt spoke about frustration w/billing, w/infusion suite, SW offered supportive listening to pt. SW encouraged pt, when it comes to billing, to ask questions to make sure things are billed correctly. Pt states he does do this. No homegoing needs are anticipated, though SW/CM remains available should any needs arise. BENNY Spivey, INSIDE STEWARD/STEWARDESS
[2018-01-23 16:56] LABS: Bedside Glucose 219 mg/dL (70-110)
[2018-01-23] MEDS: 0.9% NaCl Peripheral Flush Adult/Peds IV ×2 (19:54→21:31)
[2018-01-23] MEDS: fentaNYL 100 MCG/2 ML Ampul 50 MCG IV (19:54)
[2018-01-23] MEDS: guaiFENesin 1,200 MG Tablet 1200 MG PO (21:25)
[2018-01-23] MEDS: Glimepiride 2 MG Tablet PO (21:26)
[2018-01-23] MEDS: oxyCODONE 5 MG Tablet PO (21:28)
[2018-01-23 22:06] LABS: Bedside Glucose 308 mg/dL (70-110)
[2018-01-24] VITALS (11 sets, daily range): BP systolic 153–173; BP diastolic 76–98; PULSE 87–101; RESP 11–20; TEMP 36.4–37.1; O2SAT 93–98
[2018-01-24] MEDS: Ipratropium/Albuterol Sulfate 3 ML AMPUL.NEB INHALATION ×2 (01:27→07:07)
[2018-01-24] MEDS: levoFLOXacin 500 MG Tablet PO (05:04)
[2018-01-24] MEDS: oxyCODONE 5 MG Tablet PO (05:04)
[2018-01-24] MEDS: MethylPREDNISolone 125 MG/2 ML Vial 60 MG IV (05:05)
[2018-01-24] MEDS: Heparin Injection (Vial) 5,000 UNIT/ML VIAL 5000 UNIT SC (05:05)
[2018-01-24] MEDS: 0.9% NaCl Peripheral Flush Adult/Peds IV (05:06)
[2018-01-24 06:51] LABS: Bedside Glucose 197 mg/dL (70-110)
--- NOTE | 2018-01-24 07:51 | PCM.DC ---
- Discharge Diagnoses Current Active Problems: Current Active and Chronic Problems Cough productive of purulent sputum (Acute) Left wrist pain (Acute) Allergies/Adverse Reactions: Allergies aspirin Allergy (Verified 01/22/18 08:55) Swelling morphine Adverse Reaction (Verified 01/22/18 08:55) UNABLE TO URINATE Medications to take at Discharge Amlodipine/Benazepril [Lotrel 10-40 MG Capsule] 1 capsule PO DAILY 07/20/13 Calcium (Elemental) [Caltrate-600] 600 mg PO DAILY 07/20/13 Duloxetine Hcl [Cymbalta] 30 mg PO BID 07/20/13 Gabapentin [Neurontin] 1,200 mg PO BIDCM 07/20/13 Multivit-Min/FA/Lycopene/Lut [Century Mature Formula Tablet] 1 dose PO DAILY 07/20/13 [place]-3 Fatty Acids/Fish Oil [Fish Oil 1,000 mg Softgel] 1 each PO DAILY 07/20/13 Finasteride [Proscar] 5 mg PO DAILY 03/14/15 Metformin HCl [Glucophage] 1,000 mg PO BIDCM 03/14/15 Balsalazide Disodium 2,250 mg PO BID 11/04/16 Simvastatin [Zocor] 40 mg PO QHS 11/04/16 Chlorthalidone [Hygroton] 50 mg PO DAILY 12/24/16 Infliximab-DYYB [Inflectra] 100 mg IV X1 02/18/17 Esomeprazole Magnesium [Nexium 24Hr] 22.3 mg PO DAILY 04/15/17 Loratadine [Claritin] 10 mg PO QHS 04/15/17 Albuterol Sulfate [Ventolin Hfa] 2 puff INHALATION Q4H PRN 01/22/18 Clonidine HCl [Catapres] 0.2 mg PO BID 01/22/18 Fluticasone/Vilanterol [Breo Ellipta 100-25 Mcg INH] 1 each INHALATION DAILY 01/22/18 Glimepiride [Amaryl] 2 mg PO QHS 01/22/18 Ipratropium/Albuterol Sulfate [Duoneb] 1 vial INHALATION Q4H PRN 01/22/18 Metoprolol Tartrate [Lopressor (beta andrey)] 50 mg PO BID 01/22/18 Doxycycline 100 mg PO BID #14 cap 01/24/18 Guaifenesin Dm [Robitussin Dm] 10 ml PO Q4H #300 ml 01/24/18 Prednisone 10 mg PO UD #30 tab 01/24/18 The following prescriptions were given: Doxycycline 100 mg PO BID #14 cap Guaifenesin Dm [Robitussin Dm] 10 ml PO Q4H #300 ml Prednisone 10 mg PO UD #30 tab Primary Care Physician: Jayme Yang MD [Primary Care Provider] - Please follow up with your Primary Care Physician in: in 1-2 weeks Please Follow Up With: Devon Lange MD When: in 5-7 days Proposed Discharge Date: 01/24/18
--- NOTE | 2018-01-24 07:59 | DCINST_ITS ---
- Discharge Diagnoses Current Active Problems: Current Active and Chronic Problems Cough productive of purulent sputum (Acute) Left wrist pain (Acute) Allergies/Adverse Reactions: Allergies aspirin Allergy (Verified 01/22/18 08:55) Swelling morphine Adverse Reaction (Verified 01/22/18 08:55) UNABLE TO URINATE Medications to take at Discharge Amlodipine/Benazepril [Lotrel 10-40 MG Capsule] 1 capsule PO DAILY 07/20/13 Calcium (Elemental) [Caltrate-600] 600 mg PO DAILY 07/20/13 Duloxetine Hcl [Cymbalta] 30 mg PO BID 07/20/13 Gabapentin [Neurontin] 1,200 mg PO BIDCM 07/20/13 Multivit-Min/FA/Lycopene/Lut [Century Mature Formula Tablet] 1 dose PO DAILY [place]-3 Fatty Acids/Fish Oil [Fish Oil 1,000 mg Softgel] 1 each PO DAILY Finasteride [Proscar] 5 mg PO DAILY 03/14/15 Metformin HCl [Glucophage] 1,000 mg PO BIDCM 03/14/15 Balsalazide Disodium 2,250 mg PO BID 11/04/16 Simvastatin [Zocor] 40 mg PO QHS 11/04/16 Chlorthalidone [Hygroton] 50 mg PO DAILY 12/24/16 Infliximab-DYYB [Inflectra] 100 mg IV X1 02/18/17 Esomeprazole Magnesium [Nexium 24Hr] 22.3 mg PO DAILY 04/15/17 Loratadine [Claritin] 10 mg PO QHS 04/15/17 Albuterol Sulfate [Ventolin Hfa] 2 puff INHALATION Q4H PRN 01/22/18 Clonidine HCl [Catapres] 0.2 mg PO BID 01/22/18 Fluticasone/Vilanterol [Breo Ellipta 100-25 Mcg INH] 1 each INHALATION DAILY Glimepiride [Amaryl] 2 mg PO QHS 01/22/18 Ipratropium/Albuterol Sulfate [Duoneb] 1 vial INHALATION Q4H PRN 01/22/18 Metoprolol Tartrate [Lopressor (beta andrey)] 50 mg PO BID 01/22/18 Doxycycline 100 mg PO BID #14 cap 01/24/18 Guaifenesin Dm [Robitussin Dm] 10 ml PO Q4H #300 ml 01/24/18 Prednisone 10 mg PO UD #30 tab 01/24/18 The following prescriptions were given: Doxycycline 100 mg PO BID #14 cap Guaifenesin Dm [Robitussin Dm] 10 ml PO Q4H #300 ml Prednisone 10 mg PO UD #30 tab Primary Care Physician: Jayme Yang MD [Primary Care Provider] - Please follow up with your Primary Care Physician in: in 1-2 weeks Please Follow Up With: Devon Lange MD When: in 5-7 days Proposed Discharge Date: 01/24/18
--- NOTE | 2018-01-24 08:00 | PCM.DC.SUM ---
Discharge Date and Diagnosis - Problem List Patient Problems: Active and Suspected Problems Cough productive of purulent sputum (Acute) Left wrist pain (Acute) Date of Admission: 01/22/18 Date of Discharge: 01/24/18 - Primary Discharge Diagnosis Active and Suspected Problems Cough productive of purulent sputum (Acute) Left wrist pain (Acute) - Secondary Discharge Diagnosis Chronic Problems DM2 (diabetes mellitus, type 2) (Chronic) Inflammatory bowel disease (Chronic) Benign essential HTN (Chronic) Rheumatoid aortitis (Chronic) Hospital Course and Treatment Imaging Results: Clinical Impression(s) from Imaging Studies Chest X-Ray 01/22/18 10:07 IMPRESSION: No radiographic evidence of acute cardiopulmonary disease. Electronically Signed: Celestina Miller MD at 10:59 EDT , Service support , Chest CTA 01/22/18 10:40 IMPRESSION: No demonstrated pulmonary embolism or arterial dissection. Bilateral dependent atelectasis. Calcified granuloma within left upper lobe. Minimal multifocal tubular bronchiectasis. Accessory azygos lobe. 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 Electronically Signed: Umair Joyce MD at 13:01 EDT , Service support , Wrist X-Ray 01/22/18 15:39 IMPRESSION: Radiocarpal degenerative changes otherwise negative. Electronically Signed: Yong Em MD at 16:32 EDT , Service support , Operations: None Summary of Care Provided: Patient is a 72-year-old gentleman with past medical history cigar for inflammatory bowel disease, diabetes, hypertension chronic hypoxic respiratory failure sleep apnea who presented with progressive shortness of breath an assessment of obesity with acute exacerbation was made admitted to regular nursing floor for further management 1. COPD with acute exacerbation: Patient has been admitted to regular nursing floor where he is currently being managed with bronchodilator treatment in addition to steroids biotics. Please on supplemental oxygen titrated to keep oxygen saturation greater than 90. Patient was assessed for home oxygen prior to being discharged 2. Hypertension-blood pressure controlled, home medications continued with dose adjustment as needed 3. Dyslipidemia-patient is on statin therapy, continued at home dose 4. Diabetes mellitus type 2 did continue with home regimen also placed on Accu-Cheks before meals and at bedtime with sliding scale coverage 5. Rheumatoid arthritis 6. Inflammatory bowel disease: Continue Remicade and balsalazide. 7. Obesity with BMI of 33.3; weight loss advised 8. DVT prophylaxis: Subcu Heparin Discharge Diet: 1800 Calorie Control Diet Home Medications: Medications to take at Discharge Amlodipine/Benazepril [Lotrel 10-40 MG Capsule] 1 capsule PO DAILY 07/20/13 Calcium (Elemental) [Caltrate-600] 600 mg PO DAILY 07/20/13 Duloxetine Hcl [Cymbalta] 30 mg PO BID 07/20/13 Gabapentin [Neurontin] 1,200 mg PO BIDCM 07/20/13 Multivit-Min/FA/Lycopene/Lut [Century Mature Formula Tablet] 1 dose PO DAILY 07/20/13 [place]-3 Fatty Acids/Fish Oil [Fish Oil 1,000 mg Softgel] 1 each PO DAILY 07/20/13 Finasteride [Proscar] 5 mg PO DAILY 03/14/15 Metformin HCl [Glucophage] 1,000 mg PO BIDCM 03/14/15 Balsalazide Disodium 2,250 mg PO BID 11/04/16 Simvastatin [Zocor] 40 mg PO QHS 11/04/16 Chlorthalidone [Hygroton] 50 mg PO DAILY 12/24/16 Infliximab-DYYB [Inflectra] 100 mg IV X1 02/18/17 Esomeprazole Magnesium [Nexium 24Hr] 22.3 mg PO DAILY 04/15/17 Loratadine [Claritin] 10 mg PO QHS 04/15/17 Albuterol Sulfate [Ventolin Hfa] 2 puff INHALATION Q4H PRN 01/22/18 Clonidine HCl [Catapres] 0.2 mg PO BID 01/22/18 Fluticasone/Vilanterol [Breo Ellipta 100-25 Mcg INH] 1 each INHALATION DAILY 01/22/18 Glimepiride [Amaryl] 2 mg PO QHS 01/22/18 Ipratropium/Albuterol Sulfate [Duoneb] 1 vial INHALATION Q4H PRN 01/22/18 Metoprolol Tartrate [Lopressor (beta andrey)] 50 mg PO BID 01/22/18 Doxycycline 100 mg PO BID #14 cap 01/24/18 Guaifenesin Dm [Robitussin Dm] 10 ml PO Q4H #300 ml 01/24/18 Prednisone 10 mg PO UD #30 tab 01/24/18 Following Prescrptions Were Given to Patient: Doxycycline 100 mg PO BID #14 cap Guaifenesin Dm [Robitussin Dm] 10 ml PO Q4H #300 ml Prednisone 10 mg PO UD #30 tab Primary Care Physician: Jayme Yang MD [Primary Care Provider] - Please follow up with your Primary Care Physician in: in 1-2 weeks Please Follow Up With: Devon Lange MD When: in 5-7 days Disposition: Home Minutes spent on discharge:: 35 Patient Condition:: Stable Medical Necessity - Tobacco Use Smoking Status: Former smoker Meaningful Use Info Meaningful Use Diagnoses (Choose all that apply): None applicable Code Visit Inpatient E&M: 59763 Disch Hosp
[2018-01-24] MEDS: Gabapentin 600 MG Tablet 1200 MG PO (08:17)
--- NOTE | 2018-01-24 08:34 | NURSING ---
phoned Dr. Lange office regarding Dr Lima request for pt to have office follow up appointment next week. no answer- voicemail left for appt desk to call [facility]2 with number provided.
[2018-01-24] MEDS: Chlorthalidone 50 MG Tablet PO (10:14)
[2018-01-24] MEDS: BALSALAZIDE DISODIUM 750 MG CAPSULE 2250 MG PO (10:14)
[2018-01-24] MEDS: DULoxetine Hcl 30 MG Capsule PO (10:14)
[2018-01-24] MEDS: Metoprolol Tartrate 50 MG Tablet PO (10:14)
[2018-01-24] MEDS: Pantoprazole Sodium 20 MG Tablet PO (10:15)
[2018-01-24] MEDS: Finasteride 5 MG Tablet PO (10:15)
[2018-01-24] MEDS: amLODIPine 10 MG Tablet PO (10:15)
[2018-01-24] MEDS: guaiFENesin 1,200 MG Tablet 1200 MG PO (10:15)
[2018-01-24] MEDS: Lisinopril 40 MG Tablet PO (10:16)
[2018-01-24] MEDS: cloNIDine HCl 0.2 MG Tablet PO (10:16)
[2018-01-24 11:26] LABS: Bedside Glucose 289 mg/dL (70-110)
== END 2018-01-24 12:37 | disposition home or self-care (01) | DRG 191 ==
LOC: ED 10:08 → MS2 15:17
PROVIDERS: Admitting Provider Internal Medicine; Emergency Provider Emergency Medicine; Family Provider Family Medicine; PCP Family Medicine; Visit Provider Internal Medicine
DX: J44.1 Chronic obstructive pulmonary disease with (acute) exacerbation (principal); J96.11 Chronic respiratory failure with hypoxia; K51.90 Ulcerative colitis, unspecified, without complications; G47.33 Obstructive sleep apnea (adult) (pediatric); E66.9 Obesity, unspecified; E11.9 Type 2 diabetes mellitus without complications; I10 Essential (primary) hypertension; M19.032 Primary osteoarthritis, left wrist; M06.09 Rheumatoid arthritis without rheumatoid factor, multiple sites; E78.5 Hyperlipidemia, unspecified; Z68.32 Body mass index [BMI] 32.0-32.9, adult; Z79.4 Long term (current) use of insulin; Z79.84 Long term (current) use of oral hypoglycemic drugs; Z99.81 Dependence on supplemental oxygen; Z79.899 Other long term (current) drug therapy; Z87.891 Personal history of nicotine dependence
CPT/HCPCS: 71045; 71275; 73110; 80048; 82962; 83880; 84484; 85025; 85379; 87633; 93005; 93971; 94640; 94660; 94667; 94668; 99251; 99285; J7030; J7050; Q9967; A4216; G0463; Q5103

== ENCOUNTER → 2018-03-11 08:19 | Outpatient (CLI) | payer MEDICARE, OTHER, SELFPAY ==
[2018-03-11] VITALS (7 sets, daily range): BP systolic 125–147; BP diastolic 68–83; PULSE 66–76; RESP 16–18; TEMP 36.2–36.6; O2SAT 90–94; BMI 33.3
== END ==
PROVIDERS: Family Provider Family Medicine; PCP Family Medicine; Visit Provider Internal Medicine Rheumatology
DX: M06.09 Rheumatoid arthritis without rheumatoid factor, multiple sites (principal); K51.80 Other ulcerative colitis without complications
CPT/HCPCS: 96413; 96415; J7050; A4216; Q5103

== ENCOUNTER → 2018-03-27 08:57 | Outpatient (CLI) | payer MEDICARE, OTHER, SELFPAY ==
[2018-03-27 09:55] LABS: Absolute Lymphocyte Count 2.58 X10^3/ul (0.83-4.51); Basophil# 0.02 X10^3/uL; Basophil% 0.3 % (0-1); Eosinophil# 0.27 X10^3/uL; Eosinophils% 4.1 % (0-5); Hematocrit 40.6 % (40-54); Hemoglobin 13.3 g/dl (13.0-16.5); Lymphocyte # 2.58 X10^3/ul (4.0); Lymphocyte % 38.9 % (19-41); Mean Corp Hgb Conc 32.8 g/gl (32-36); Mean Corpuscular Volume 88.6 fL (80-94); Mean Platelet Vol. 10.5 fl (6.2-12.0); Monocyte# 0.78 X10^3/uL; Monocyte% 11.7 % (0-10); Neutrophil # 2.98 X10^3/uL (2.7-7.7); Neutrophil % 44.8 % (47-70); POSITIVE COUNT NO; POSITIVE DIFFERENTIAL NO; POSITIVE MORPHOLOGY NO; Platelet Count 257 K/mm3 (150-450); RBC Distribution Width CV 15.1 % (11.6-14.6); RBC Distribution Width SD 48.9 fl (35.1-43.9); Red Blood Count 4.58 M/mm3 (4.6-6.2); White Blood Count 6.6 K/mm3 (4.4-11.0)
[2018-03-27 10:03] LABS: ALB/GLOB Ratio 0.8 RATIO (0.9-2.4); AST(SGOT) 25 U/L (15-37); Alanine Aminotransfer ALT/SGPT 26 U/L (16-61); Albumin, Serum 3.6 g/dL (3.2-5.0); Alkaline Phosphatase 57 U/L (45-117); Anion Gap 6 (5-15); BUN 13 mg/dL (7-18); BUN/Creat Ratio 11.2 RATIO (10-20); Calcium,Total 8.7 mg/dL (8.5-10.1); Chloride 105 mmol/L (98-107); Creatinine, Serum 1.16 mg/dL (0.70-1.30); EST Glomerular Filtration Rate 66 mL/min (>60); Est Glom Filt Rate - Afr Amer 79 mL/min (>60); Globulin 4.3 g/dL (2.2-4.2); Glucose 153 mg/dL (74-106); Potassium 3.7 mmol/L (3.5-5.1); Protein, Total 7.9 g/dL (6.4-8.2); Sodium Level 140 mmol/L (136-145)
== END ==
PROVIDERS: Family Provider Family Medicine; PCP Family Medicine; Visit Provider Internal Medicine Rheumatology
DX: M06.09 Rheumatoid arthritis without rheumatoid factor, multiple sites (principal); M15.9 Polyosteoarthritis, unspecified; K21.0 Gastro-esophageal reflux disease with esophagitis; M47.897 Other spondylosis, lumbosacral region; M51.37 Other intervertebral disc degeneration, lumbosacral region; M47.892 Other spondylosis, cervical region; Z79.899 Other long term (current) drug therapy
CPT/HCPCS: 36415; 80053; 85025

== ENCOUNTER → 2018-04-29 08:21 | Outpatient (CLI) | payer MEDICARE, OTHER, SELFPAY ==
[2018-04-29 08:27] VITALS: TEMP 36.8
[2018-04-29 09:30] VITALS: BP 150/92
[2018-04-29 09:53] VITALS: BP 152/94; PULSE 68
[2018-04-29 10:05] VITALS: BP 145/87; PULSE 67
[2018-04-29 10:38] VITALS: BP 139/84; PULSE 69
== END ==
PROVIDERS: Family Provider Family Medicine; PCP Family Medicine; Visit Provider Internal Medicine Rheumatology
DX: M06.09 Rheumatoid arthritis without rheumatoid factor, multiple sites (principal); K51.80 Other ulcerative colitis without complications
CPT/HCPCS: 96413; 96415; J7050; Q5103

== ENCOUNTER 2018-05-17 14:07 | Emergency (ER) | payer MEDICARE, OTHER, SELFPAY ==
[2018-05-17 14:09] VITALS: BP 167/115; PULSE 71; RESP 22; TEMP 36.6; O2SAT 95; BMI 34.3
[2018-05-17 14:55] VITALS: PULSE 75; RESP 16
--- NOTE | 2018-05-17 15:09 | ED.RN ---
POISON CONTROLLED REGARDING PT'S BLEACH INGESTION. APPROX 50-100, DILUTED BLEACH INGESTED WITH 8-10 OZ OF WATER. PT CONSUMED ENTIRE GLASS. NOW C/O EPIGASTRIC BURNING. POISON CONTROL STATED THAT OBSERVATION MAY BE NEEDED IF SX ARE SEVERE, BUT TYPICALLY JIM ARE NOT SUSPECTED UNLESS CONCENTRATION IS INDUSTRIAL STRENGTH. AND THE FACT THAT IT WAS DILUTED IS A GOOD THING. SUPPORTIVE CARE IS NEEDED AT THIS TIME.
--- NOTE | 2018-05-17 15:10 | ED.VISSUMM ---
- ER Visit Summary Date of Service: 05/17/18 Chief Complaint: Accidental ingestion of laundry bleach History of Present Illness: The patient is a 72 M who presents after actually drinking laundry bleach. Apparently is using glass to transport bleach for cleaning. was unaware that there was 1/2 inch quarter inch of bleach at the bottom of the glass. He filled the glass with water. He drank the glass of water and complain of some irritation in his throat and warm sensation in his chest. He has not had any drooling. There is no change in voice. He denies any shortness of breath. He has no other complaints Physical Examination: Vital signs are remarkable for blood pressure 165/115. He is not hypoxic. He is in no distress. Head is atraumatic normocephalic. Pupils are equal round reactive. Extraocular muscles are intact. TMs are pearly white with landmarks noted. Nares patent with no drainage. Posterior pharynx without erythema or exudate. Uvula is midline. There is no dysphonia or dysphasia. Trachea is midline. There is no stridor with auscultation of the neck. Heart is regular without murmur, gallop or rub. S1 and S2 are normal. Lungs are clear to auscultation with good movement of air bilaterally. Test Results: None are indicated Emergency Department Course and Treatment: Apparently poison control was contacted at [phone]. They inform the person who called that usually this does not cause any burn unless it is industrial-strength. Since it was not industrial trach and diluted this probably has caused some mild mucosal irritation. At this point nothing needs to be done. He will be discharged with appropriate home-going instructions Treatment Plan: Return if any drooling, change in voice or difficulty breathing. Disposition: Discharged to home Impression: Accidental ingestion of diluted bleach This note was generated with [employer] dictation software. It may contain incorrect words, spelling, and punctuation that were not noted in review of the chart prior to signing ED Disposition - Plan for ED Patient: Disposition: Home or Assisted Living Chief Complaint: Poisoning Instructions: ED Overdose Accidental Referrals: Jayme Yang MD [Primary Care Provider] - As Needed
[2018-05-17 15:32] VITALS: BP 172/90; PULSE 75; RESP 16; O2SAT 94
== END 2018-05-17 15:33 | disposition home or self-care (01) ==
PROVIDERS: Emergency Provider Emergency Medicine; Family Provider Family Medicine; PCP Family Medicine
DX: T54.91XA Toxic effect of unspecified corrosive substance, accidental (unintentional), initial encounter (principal); R09.89 Other specified symptoms and signs involving the circulatory and respiratory systems; Y92.009 Unspecified place in unspecified non-institutional (private) residence as the place of occurrence of the external cause; E66.9 Obesity, unspecified; Z68.34 Body mass index [BMI] 34.0-34.9, adult
CPT/HCPCS: 99282

== ENCOUNTER 2018-05-31 15:47 | Observation (INO) | payer MEDICARE, OTHER, SELFPAY ==
[2018-05-31 15:47] VITALS: BP 167/84; PULSE 79; RESP 18; TEMP 36.7; O2SAT 93; BMI 32.8
[2018-05-31] MEDS: Ondansetron 4 MG/2 ML Vial IV ×2 (17:33→23:35)
[2018-05-31] MEDS: 0.9% Normal Saline 1,000 ML 125 ML IV (17:33)
[2018-05-31] MEDS: HYDROmorphone 1 MG/ML Syringe IV (17:33)
[2018-05-31 17:48] LABS: Absolute Lymphocyte Count 1.47 X10^3/ul (0.83-4.51); Absolute Neutrophil Count 8.5 X10^3/uL (2.0-7.7); Basophil# 0.01 X10^3/uL; Basophil% 0.1 % (0-1); Eosinophil# 0.02 X10^3/uL; Eosinophils% 0.2 % (0-5); Hematocrit 43.6 % (40-54); Hemoglobin 14.3 g/dl (13.0-16.5); Lymphocyte # 1.47 X10^3/ul (4.0); Lymphocyte % 13.4 % (19-41); Mean Corp Hgb Conc 32.8 g/gl (32-36); Mean Corpuscular Hgb 29.7 pg (27.0-32.0); Mean Corpuscular Volume 90.5 fL (80-94); Mean Platelet Vol. 10.8 fl (6.2-12.0); Monocyte# 0.97 X10^3/uL; Monocyte% 8.9 % (0-10); Neutrophil # 8.48 X10^3/uL (2.7-7.7); Neutrophil % 77.3 % (47-70); Platelet Count 216 K/mm3 (150-450); RBC Distribution Width CV 15.7 % (11.6-14.6); RBC Distribution Width SD 52.1 fl (35.1-43.9); Red Blood Count 4.82 M/mm3 (4.6-6.2)
[2018-05-31 17:51] LABS: POSITIVE COUNT NO; POSITIVE DIFFERENTIAL NO; POSITIVE MORPHOLOGY NO
[2018-05-31 18:03] LABS: AST(SGOT) 31 U/L (15-37); Alanine Aminotransfer ALT/SGPT 29 U/L (16-61); Alkaline Phosphatase 53 U/L (45-117); Anion Gap 9 (5-15); BUN 20 mg/dL (7-18); BUN/Creat Ratio 13.6 RATIO (10-20); Bilirubin, Direct 0.11 mg/dL (0.00-0.30); Calcium,Total 9.1 mg/dL (8.5-10.1); Chloride 105 mmol/L (98-107); Creatinine, Serum 1.47 mg/dL (0.70-1.30); EST Glomerular Filtration Rate 50 mL/min (>60); Est Glom Filt Rate - Afr Amer 60 mL/min (>60); Estimated Creatinine Clearance 41.84 ml/min; Globulin 4.4 g/dL (2.2-4.2); Glucose 180 mg/dL (74-106); Lipase 82 U/L (73-393); Protein, Total 8.4 g/dL (6.4-8.2); Sodium Level 141 mmol/L (136-145)
[2018-05-31 19:29] LABS: Bacteria 0 SEEN /hpf (None Seen); Mucous, Urine 0 SEEN /hpf (<or=2+); White Blood Cells 0 SEEN /hpf (0-5)
[2018-05-31 19:31] LABS: Color, Urine Yellow (Yellow); Glucose, Dipstick Normal (Normal); Ketone-Dipstick Negative (Negative); Leukocyte Esterase-Dipstick Negative /ul (Negative); Nitrite-Dipstick Negative (Negative); Occult Blood-Urine 10 /ul (Negative); Protein-Dipstick 30 mg/dl (Negative); Specific Gravity, Urine 1.015 (1.002-1.030); Urine Bilirubin Dipstick Negative (Negative); Urine Clarity Clear (Clear); Urine Urobilinogen Normal (Normal)
[2018-05-31] MEDS: 0.9% Normal Saline 1,000 ML 999 ML IV (19:35)
[2018-05-31 19:37] VITALS: BP 164/91; PULSE 92; RESP 16; TEMP 37.1; O2SAT 96
[2018-05-31 19:38] LABS: Red Blood Cells-Urine 0-5 SEEN /hpf (0-5); Squamous Epithelial Cells - UA 0-5 SEEN /hpf (0-5)
--- NOTE | 2018-05-31 19:54 | ED.VISSUMM ---
- ER Visit Summary Date of Service: 05/31/18 Chief Complaint: Abdominal pain History of Present Illness: The patient is a [address] Cervantes and Dr. Jayme Samano. He has a history of ulcerative colitis. He has lower abdominal pain that began abruptly this morning. Is a sharp pain is 10 out of 10 severity. Is worsened by movement. He reports is been nausea and vomited 3 times. No blood in his emesis. He reports an upset diarrhea. No blood in his stools or black tarry stools. No dysuria or frequency. States this is similar to when he had diverticulitis in the past. Physical Examination: Vitals: Stable. Afebrile. General: Well-nourished and well-developed. Head: Normocephalic atraumatic. Neck: Supple, no lymphadenopathy. No JVD. Nontender. Cardiovascular: Regular rate and rhythm. No murmurs. Respiratory: No respiratory distress. Clear to auscultation bilaterally. Abdominal: Soft, mild diffuse lower abdominal tenderness, nondistended, normal bowel sounds. No guarding, rebound, or peritoneal signs. Back: Nontender. Extremities: Nontender, no edema. Skin: Normal color, no rash. Neurologic: Alert and oriented ?3. Cranial nerves II through XII are intact. Normal strength and sensation. Psych: Normal affect. Test Results: CBC is marked for 7 neutrophils 77 lymphocytes 13. Chem-7 is more for glucose 180, BUN 20, creatinine 1.47. LFTs marked total protein 8.4 mg 4.4. Lipase is normal. UA shows blood without infection. CT flank shows right hydroureteronephrosis secondary to a 5.2 mm calculus in the proximal ureter. Emergency Department Course and Treatment: Patient was treated with Dilaudid and Zofran IV. He continues to complain of pain. Treatment Plan: Patient reports that his pain is too severe to go home. He was discussed with Dr. Larson. He will be admitted to the hospital for further evaluation and treatment. Disposition: Admitted in improved condition. Impression: 1. Right ureterolithiasis. 2. History of ulcerative colitis. This note was generated with SOAST[employer] software. It may contain incorrect words, spelling, and punctuation that were not noted in review of the chart prior to signing ED Disposition - Plan for ED Patient: Disposition: Acute Care Hospital [facility] Chief Complaint: Abd Pain
[2018-05-31] MEDS: HYDROmorphone 0.5 MG/0.5 ML SYRINGE IV (20:11)
[2018-05-31 21:02] VITALS: BP 185/96; PULSE 95; RESP 16; O2SAT 94
[2018-05-31 21:04] VITALS: BP 185/96; PULSE 95; RESP 16; O2SAT 94
[2018-05-31 21:12] VITALS: BMI 33.0; BMI 33.1
[2018-05-31 21:13] VITALS: BP 155/87; PULSE 97; RESP 18; TEMP 36.7; O2SAT 96
--- NOTE | 2018-05-31 22:12 | PCM.HP.STD ---
Problem List (1) Ureteral calculus, right Status: Acute History of Present Illness Date of Admission: 05/31/18 Chief Complaint: Right renal colic The patient is a 72 year old male with high grade obstruction on the right side admitted from the ER with pain control for a 5.5mm stone in the proximal right ureter. Past Medical History Past Medical History (Chronic Problems): Chronic Problems DM2 (diabetes mellitus, type 2) (Chronic) Inflammatory bowel disease (Chronic) Benign essential HTN (Chronic) Rheumatoid aortitis (Chronic) Allergies aspirin Allergy (Verified 05/31/18 19:41) Swelling morphine Adverse Reaction (Verified 05/31/18 19:41) UNABLE TO URINATE Home Medications: Ambulatory Orders Medication Instructions Recorded Amlodipine/Benazepril [Lotrel 1 capsule PO DAILY 07/20/13 10-40 MG Capsule] Calcium (Elemental) [Caltrate-600] 600 mg PO DAILY 07/20/13 Duloxetine Hcl [Cymbalta] 30 mg PO BID 07/20/13 Gabapentin [Neurontin] 1,800 mg PO TID 07/20/13 Multivit-Min/FA/Lycopene/Lut 1 dose PO DAILY 07/20/13 [Century Mature Formula Tablet] [place]-3 Fatty Acids/Fish Oil [Fish 1 each PO DAILY 07/20/13 Oil 1,000 mg Softgel] Finasteride [Proscar] 5 mg PO DAILY 03/14/15 Metformin HCl [Glucophage] 1,000 mg PO BIDCM 03/14/15 Balsalazide Disodium 2,250 mg PO BID 11/04/16 Simvastatin [Zocor] 40 mg PO QHS 11/04/16 Chlorthalidone [Hygroton] 50 mg PO DAILY 12/24/16 Infliximab-DYYB [Inflectra] 100 mg IV QMONTH 02/18/17 Esomeprazole Magnesium [Nexium 22.3 mg PO DAILY 04/15/17 24Hr] Loratadine [Claritin] 10 mg PO QHS 04/15/17 Albuterol Sulfate [Ventolin Hfa] 2 puff INHALATION BID 01/22/18 Clonidine HCl [Catapres] 0.2 mg PO BID 01/22/18 Glimepiride [Amaryl] 2 mg PO QHS 01/22/18 Metoprolol Tartrate [Lopressor 50 mg PO BID 01/22/18 (beta andrey)] Doxycycline 100 mg PO BID #14 cap 01/24/18 Docusate Sodium [Colace] 100 mg PO DAILY #20 capsule 05/31/18 Ondansetron [Zofran Odt] 4 mg PO Q8H PRN PRN #10 tablet 05/31/18 Oxycodone HCl/Acetaminophen 1 tablet PO Q6H PRN PRN 5 Days #20 05/31/18 [Percocet 5/325] tablet Tamsulosin HCl [Flomax] 0.4 mg PO DAILY #7 capsule 05/31/18 Surgical History: no surgical history, noncontributory, - - Fusion of the cervical spine, lumbar spine surgery, bilateral knee replacements, partial colon resection due to diverticulitis Psychiatric History: No pertinent psych hx Lives: Spouse/ Significant Other Smoking Status: Former smoker Tobacco Use: Non-smoker Alcohol: None Drugs: None - *Family History Maternal History Items: Heart Disease Paternal History Items: COPD, Heart Disease Review of Systems Constitutional: Denies: Chills, Fever, Weight Change HEENT: Denies: Head Aches, Sinus Congestion, Sinus Drainage Cardiovascular: Denies: Chest Pain, Palpitations Respiratory: Denies: Cough, Shortness of breath at rest, Sputum production Gastrointestinal: Reports: Abdominal Pain. Denies: Nausea, Vomiting Genitourinary: Reports: Hematuria. Denies: Dysuria Musculoskeletal: Denies: Joint Pain, Joint Tenderness Skin: Denies: Rash, Wounds Neurological: Denies: Numbness, Tingling, Focal weakness Psychiatric: Denies: Anxiety, Depression, Homicidal Ideations, Suicidal Ideations Hematologic/ Lymphatic: Denies: Easy Bruising, Easy Bleeding VTE Information - Inpt Only VTE Present on Admission: No VTE Mechan Device Prophylaxis: SCD's Patient Problems: Active and Suspected Problems Ureteral calculus, right (Acute) - Physical Exam General: Alert, Oriented x3, Cooperative HEENT: Atraumatic, PERRLA, EOMI, Normocephalic Neck: Supple, No JVD, Negative Carotid Bruits Lungs: Clear to auscultation, Normal air movement Cardiovascular: Regular rate, No murmurs Abdomen: Bowel Sounds Present, Soft, Non Tender Extremities: No edema, Capillary Refill Less than 3 Seconds Skin: No rashes, No breakdown Musculoskeletal: No Tenderness to Palpation of Joints or Extremities Neurological: Cranial nerves II-XII grossly intact Psych/Mental Status: Normal Affect, Appropriate Vital Signs Temp Pulse Resp BP Pulse Ox 98.0 F 97 18 155/87 H 96 05/31/18 21:13 05/31/18 21:13 05/31/18 21:13 05/31/18 21:13 05/31/18 21:13 Oxygen Flow Rate (L/min) 2 Oxygen Delivery Method Nasal Cannula Weight: 95.8 kg Body Mass Index (BMI) 33.0 Assessment/Plan All Active Problems Cough productive of purulent sputum (Acute) Left wrist pain (Acute) Ureteral calculus, right (Acute) Hyperlipidemia (Acute) Shortness of breath (Acute) Chest tightness (Acute) Syncopal episodes (Acute) admit for pain control plan to take to surgery in am for Right ureteroscopy laser/basket of stone and stent. npo at nd
[2018-05-31] MEDS: Ciprofloxacin 400 MG/200 ML BAG 200 MG IV (23:29)
[2018-05-31] MEDS: 0.9% Normal Saline 1,000 ML 75 ML IV (23:30)
[2018-05-31] MEDS: Morphine 2 MG/ML Syringe IV (23:35)
--- NOTE | 2018-05-31 23:39 | NURSING ---
Patient has morphine listed as an allergy. I asked patient what reaction was, he said he becomes constipated. I told him I had morphine ordered but I could contact the MD to change the order. He stated he is ok to have morphine and said he did not have any SOB or itching r/t morphine.
[2018-05-31] MEDS: 0.9% NaCl Peripheral Flush Adult/Peds IV (23:43)
[2018-06-01] VITALS (17 sets, daily range): BP systolic 118–177; BP diastolic 70–127; PULSE 65–101; RESP 18–20; TEMP 36.3–37.1; O2SAT 91–96; BMI 33.0; BMI 33.1
[2018-06-01] MEDS: Morphine 2 MG/ML Syringe IV ×2 (03:15→05:43)
[2018-06-01] MEDS: 0.9% NaCl Peripheral Flush Adult/Peds IV ×2 (03:17→05:43)
[2018-06-01 05:50] LABS: Bedside Glucose 129 mg/dL (70-110)
--- NOTE | 2018-06-01 06:00 | EKG12_ITS ---
Test Reason : PRE OP Blood Pressure : / mmHG Vent. Rate : 086 BPM Atrial Rate : 086 BPM P-R Int : 176 ms QRS Dur : 092 ms QT Int : 382 ms P-R-T Axes : 017 -35 -05 degrees QTc Int : 457 ms Sinus rhythm with Premature atrial complexes Left axis deviation /LAHB Septal infarct (cited on or before 09-SEP-2010) Abnormal ECG When compared with ECG of 22-JAN-2018 09:00, Premature atrial complexes are now Present Confirmed by LAUREN MANJARREZ ([id number]), publication editor MANA LINTON ([id number]) on 06/10/2018 2:56:47 PM Referred By: REYES Confirmed By:LAUREN MANJARREZ
[2018-06-01] MEDS: Ketorolac 15 MG/ML Vial IV (06:51)
[2018-06-01] MEDS: Albuterol 2.5 MG/3 ML VIAL.NEB. INHALATION ×2 (07:14→13:20)
[2018-06-01 07:23] LABS: Hemoglobin A1c 6.8 % (4.2-6.3)
[2018-06-01] MEDS: Metoprolol Tartrate 50 MG Tablet PO (08:30)
--- NOTE | 2018-06-01 09:00 | CALC_PTH ---
PATIENT: MEGAN HOLLOWAY LOC: [facility] U#:[id number] AGE/SX: 72/M ROOM: RI316 RE05/31/[address]: Dr. Surinder Larson MD : [id number] BED: 1 DIS: 06/01/2018 SPEC #: [id number] RECD: 06/03/18 09:10 STATUS: KATTY RANDI #: [id number] CHRIS: 06/01/18 09:[address]: Surinder Larson DEPT: SURGICAL PATHOLOGY RECD BY: Royce Sherwood ENTERED: 06/03/18 10:25 SP TYPE: Calculi OTHR DR: Dr. Jayme Yang MD Tissues: CALCULI Procedures: Surgery Specimen Level I HEADER OPERATION: Ureteroscopy, retrograde, balloon dilation, basket of stone PRE-OP DIAGNOSIS: Right renal calculi TISSUE SUBMITTED: Calculi for analysis GROSS DIAGNOSIS Right renal calculi, removal: Unremarkable calculi (gross diagnosis only). AM:yamini 06/04/18 COMMENT The calculus is submitted in its entirety for chemical stone analysis. The results from this study will be reported separately. GROSS DESCRIPTION Received in fixative is one container labeled with the patient's name and designated calculi for analysis. The specimen consists of two irregular light to dark sales calculi measuring in aggregate 0.5 x 0.2 x 0.2 cm. The calculi are submitted in their entirety for chemical stone analysis. / AM:yamini 06/03/18 CPT: 16760
--- NOTE | 2018-06-01 09:05 | NURSING ---
0854 pt down to surgery report called. Khadijah thorpe RN
--- NOTE | 2018-06-01 09:09 | PCM.DC.URO ---
Discharge Diet: Light diet - advance as tolerated Discharge Activity: Return to Normal Activity, May not drive while taking narcotic pain medications. Call your doctor if your incision/area has: Continuous Slow Oozing, Sudden Increased Bleeding, Increased Pain/ Swelling, Increased Redness, Foul Smelling Discharge, Swelling at the incision site Suture Line Care: Avoid Pulling/Pushing, Avoid Pinching/Bending Instructions: ED Stone Renal W Colic Allergies/Adverse Reactions: Allergies aspirin Allergy (Verified 05/31/18 19:41) Swelling morphine Adverse Reaction (Verified 05/31/18 19:41) UNABLE TO URINATE Medications to take at Discharge Amlodipine/Benazepril [Lotrel 10-40 MG Capsule] 1 capsule PO DAILY 07/20/13 Calcium (Elemental) [Caltrate-600] 600 mg PO DAILY 07/20/13 Duloxetine Hcl [Cymbalta] 30 mg PO BID 07/20/13 Gabapentin [Neurontin] 1,800 mg PO TID 07/20/13 Multivit-Min/FA/Lycopene/Lut [Century Mature Formula Tablet] 1 dose PO DAILY 07/20/13 [place]-3 Fatty Acids/Fish Oil [Fish Oil 1,000 mg Softgel] 1 each PO DAILY 07/20/13 Finasteride [Proscar] 5 mg PO DAILY 03/14/15 Metformin HCl [Glucophage] 1,000 mg PO BIDCM 03/14/15 Balsalazide Disodium 2,250 mg PO BID 11/04/16 Simvastatin [Zocor] 40 mg PO QHS 11/04/16 Chlorthalidone [Hygroton] 50 mg PO DAILY 12/24/16 Infliximab-DYYB [Inflectra] 100 mg IV QMONTH 02/18/17 Esomeprazole Magnesium [Nexium 24Hr] 22.3 mg PO DAILY 04/15/17 Loratadine [Claritin] 10 mg PO QHS 04/15/17 Albuterol Sulfate [Ventolin Hfa] 2 puff INHALATION BID 01/22/18 Clonidine HCl [Catapres] 0.2 mg PO BID 01/22/18 Glimepiride [Amaryl] 2 mg PO QHS 01/22/18 Metoprolol Tartrate [Lopressor (beta andrey)] 50 mg PO BID 01/22/18 Docusate Sodium [Colace] 100 mg PO DAILY #20 capsule 05/31/18 Doxycycline 100 mg PO BID 05/31/18 Ondansetron [Zofran Odt] 4 mg PO Q8H PRN PRN #10 tablet 05/31/18 Oxycodone HCl/Acetaminophen [Percocet 5/325] 1 tablet PO Q6H PRN PRN 5 Days #20 tablet 05/31/18 Tamsulosin HCl [Flomax] 0.4 mg PO DAILY #7 capsule 05/31/18 Hydrocodone/Acetaminophen [[place] 5-325 Tablet] 1 ea PO Q4H PRN PRN 3 Days #10 tab 06/01/18 Phenazopyridine HCl [Pyridium] 100 mg PO TID PRN PRN #14 tab 06/01/18 The following prescriptions were given: Hydrocodone/Acetaminophen [[place] 5-325 Tablet] 1 ea PO Q4H PRN PRN 3 Days #10 tab PRN Reason: Pain Oxycodone HCl/Acetaminophen [Percocet 5/325] 1 tablet PO Q6H PRN PRN 5 Days #20 tablet PRN Reason: Pain Ondansetron [Zofran Odt] 4 mg PO Q8H PRN PRN #10 tablet PRN Reason: Nausea Docusate Sodium [Colace] 100 mg PO DAILY #20 capsule Phenazopyridine HCl [Pyridium] 100 mg PO TID PRN PRN #14 tab PRN Reason: buring with urination. Tamsulosin HCl [Flomax] 0.4 mg PO DAILY #7 capsule Primary Care Physician: Surinder Larson MD [STAFF PHYSICIAN] - 1 Week if not improving Test Results: Test results from this visit will be discussed in further detail at your follow-up appointment, if applicable. Please Follow Up With: Surinder Larson MD When: please call to make an appointment. Proposed Discharge Date: 06/01/18
[2018-06-01] MEDS: Lubricating Jelly 60 GM Tube 30 GM TOPICAL (09:24)
[2018-06-01] MEDS: Ciprofloxacin 400 MG/200 ML BAG 200 MG IV (09:30)
--- NOTE | 2018-06-01 09:55 | PCM.OPRPT ---
Problem List (1) Ureteral calculus, right Status: Acute Report of Operation Date of Procedure: 06/01/18 Pre-Operative Diagnosis: Right ureteral calculi causing obstruction of the right kidney and hydronephrosis and pain Post-Operative Diagnosis: Same Surgery/Procedure Performed:: Cystoscopy, balloon dilation of the right ureter, placement of a axis sheath, right ureteroscopy laser lithotripsy of stone, basket of fragments, right retrograde pyelogram, and right stent placement Description of Surgical Findings:: 72-year-old male was admitted to the hospital with severe pain from obstructing stone in the proximal right ureter causing hydronephrosis. 72-year-old male taken back to the operating room after smooth induction of general anesthesia he was placed supine on the table in the dorsolithotomy position, penis and testicles were prepped and draped in usual sterile fashion. I went into the bladder with a 21 [place] rigid cystourethroscope, I then cannulated the right ureteral orifice with a wire and then over the wire advanced the balloon dilator then balloon dilated the distal right ureter, I then left the wire in place and at all over the wire advanced and access sheath into the ureter axis sheath was put up skilled nursing up the ureter. I then pulled the wire out the axis sheath in place and went through the access sheath up the ureter and encountered the stone in the proximal ureter the stone was then flushed and pushed back into the pelvis of the kidney I then used a 270 ?m laser fiber advanced it through the sheath and through the ureteroscope once I reached the stone I used energy settings of 5 Hz and 2.0 J I broke the stone in 2-3 pieces that after this I went up with the basket and basketed the first piece pulled up the ureter and handed off as a specimen, I then basketed the second large piece and pulled up the ureter ureter and handed off as specimen, we then did right retrograde pyelogram is no extravasation contrast the ureter was intact no injury or damage to the collecting system work my way down the ureter with the ureteroscope pulled this out but a wire up the sheath and then pulled the sheath out and then over the wire I backloaded with the cystoscope and then pushes stent up into the right kidney it was a 6 Kazakh by 26 cm stent once a stent was in good position pulled the wire the stent coiled in the kidney bladder in good position drain the bladder patient anesthetic was reversed and is taken back to PACU good condition plan to see him back in about a week to get stent out. Type of Anesthesia:: General Drains: stent - Admit VTE Documentation VTE Present on Admission: No VTE Mechan Device Prophylaxis: SCD's
--- NOTE | 2018-06-01 10:06 | PCA ---
pt off floor
[2018-06-01 10:16] LABS: Bedside Glucose 151 mg/dL (70-110)
[2018-06-01 10:25] LABS: Bedside Glucose 111 mg/dL (70-110)
--- NOTE | 2018-06-01 11:05 | PCA ---
pt off floor
[2018-06-01] MEDS: Glimepiride 2 MG Tablet PO (12:10)
[2018-06-01] MEDS: DULoxetine Hcl 30 MG Capsule PO (12:10)
[2018-06-01] MEDS: Multivitamins,Therapeutic Tablet 1 TABLET PO (12:10)
[2018-06-01] MEDS: cloNIDine HCl 0.2 MG Tablet PO (12:10)
[2018-06-01] MEDS: Lisinopril 40 MG Tablet PO (12:11)
[2018-06-01] MEDS: amLODIPine 10 MG Tablet PO (12:11)
[2018-06-01] MEDS: Chlorthalidone 50 MG Tablet PO (12:12)
[2018-06-01] MEDS: Docusate Sodium 100 MG Capsule PO (12:12)
[2018-06-01] MEDS: Finasteride 5 MG Tablet PO (12:14)
[2018-06-01] MEDS: Calcium (Elemental) 500 MG Tablet PO (12:38)
[2018-06-01] MEDS: Gabapentin 600 MG Tablet 1800 MG PO (12:44)
[2018-06-01 13:25] LABS: Bedside Glucose 152 mg/dL (70-110)
[2018-06-09 12:07] LABS: Ca Oxalate, Monohydrate 98 % (.)
== END 2018-06-01 16:19 | disposition home or self-care (01) ==
LOC: ED 17:38 → MS3 20:46
PROVIDERS: Anesthesiology; Admitting Provider Urology; Emergency Provider Emergency Medicine; Family Provider Family Medicine; PCP Family Medicine; Visit Provider Urology
PROC: 0TJ98ZZ Inspection of Ureter, Via Natural or Artificial Opening Endoscopic (ICD-10-PCS; CPT 52352; principal; 2018-06-01 09:00)
DX: N13.2 Hydronephrosis with renal and ureteral calculous obstruction (principal); E11.9 Type 2 diabetes mellitus without complications; M06.9 Rheumatoid arthritis, unspecified; E78.00 Pure hypercholesterolemia, unspecified; Z79.899 Other long term (current) drug therapy; I10 Essential (primary) hypertension; Z87.891 Personal history of nicotine dependence; G47.30 Sleep apnea, unspecified; K51.90 Ulcerative colitis, unspecified, without complications; Z79.84 Long term (current) use of oral hypoglycemic drugs
CPT/HCPCS: 52356; 36415; 74176; 76000; 80048; 80076; 81001; 82360; 82962; 83036; 83690; 85025; 88300; 93005; 94640; 96361; 96365; 96375; 96376; 99218; 99284; J7030; A4216; C1726; C1769; C2617; G0378; J0744; J2405

== ENCOUNTER → 2018-06-16 07:51 | Outpatient (CLI) | payer MEDICARE, OTHER, SELFPAY ==
[2018-06-16 08:27] VITALS: BP 156/81; PULSE 75; RESP 16; TEMP 36.5; O2SAT 95; BMI 33.2
[2018-06-16 09:07] VITALS: BP 150/77; PULSE 70; RESP 16
[2018-06-16 09:22] VITALS: BP 138/93; PULSE 72; RESP 18; TEMP 36.6; O2SAT 95
[2018-06-16 09:40] VITALS: BP 144/83; PULSE 70; RESP 18; TEMP 36.3
[2018-06-16 09:55] VITALS: BP 130/80; PULSE 69; RESP 18; TEMP 36.4
[2018-06-16 11:00] VITALS: BP 133/78; PULSE 69; RESP 18; TEMP 36.7; O2SAT 94
== END ==
PROVIDERS: Family Provider Family Medicine; PCP Family Medicine; Visit Provider Internal Medicine Rheumatology
DX: M06.09 Rheumatoid arthritis without rheumatoid factor, multiple sites (principal); K51.80 Other ulcerative colitis without complications
CPT/HCPCS: 96413; 96415; J7050; A4216; Q5103

== ENCOUNTER → 2018-06-27 08:58 | Outpatient (CLI) | payer MEDICARE, OTHER, SELFPAY ==
[2018-06-27 10:13] LABS: Absolute Lymphocyte Count 2.68 X10^3/ul (0.83-4.51); Absolute Neutrophil Count 4.1 X10^3/uL (2.0-7.7); Basophil# 0.01 X10^3/uL; Basophil% 0.1 % (0-1); Eosinophil# 0.21 X10^3/uL; Eosinophils% 2.7 % (0-5); Hematocrit 40.9 % (40-54); Hemoglobin 13.3 g/dl (13.0-16.5); Lymphocyte # 2.68 X10^3/ul (4.0); Lymphocyte % 34.1 % (19-41); Mean Corp Hgb Conc 32.5 g/gl (32-36); Mean Corpuscular Hgb 29.4 pg (27.0-32.0); Mean Corpuscular Volume 90.5 fL (80-94); Mean Platelet Vol. 10.8 fl (6.2-12.0); Monocyte# 0.85 X10^3/uL; Monocyte% 10.8 % (0-10); Neutrophil # 4.09 X10^3/uL (2.7-7.7); Neutrophil % 52.2 % (47-70); Platelet Count 215 K/mm3 (150-450); RBC Distribution Width CV 15.9 % (11.6-14.6); RBC Distribution Width SD 52.7 fl (35.1-43.9); Red Blood Count 4.52 M/mm3 (4.6-6.2); White Blood Count 7.9 K/mm3 (4.4-11.0)
[2018-06-27 10:14] LABS: POSITIVE COUNT NO; POSITIVE DIFFERENTIAL NO; POSITIVE MORPHOLOGY NO
[2018-06-27 10:40] LABS: ALB/GLOB Ratio 0.9 RATIO (0.9-2.4); AST(SGOT) 24 U/L (15-37); Alanine Aminotransfer ALT/SGPT 28 U/L (16-61); Albumin, Serum 3.6 g/dL (3.2-5.0); Alkaline Phosphatase 64 U/L (45-117); Anion Gap 6 (5-15); BUN 16 mg/dL (7-18); BUN/Creat Ratio 14.7 RATIO (10-20); Calcium,Total 8.6 mg/dL (8.5-10.1); Chloride 105 mmol/L (98-107); Creatinine, Serum 1.09 mg/dL (0.70-1.30); EST Glomerular Filtration Rate 70 mL/min (>60); Est Glom Filt Rate - Afr Amer 85 mL/min (>60); Glucose 156 mg/dL (74-106); Potassium 3.9 mmol/L (3.5-5.1); Protein, Total 7.6 g/dL (6.4-8.2); Sodium Level 141 mmol/L (136-145)
== END ==
PROVIDERS: Family Provider Family Medicine; PCP Family Medicine; Referring Provider Internal Medicine Rheumatology; Visit Provider Internal Medicine Rheumatology
DX: M06.09 Rheumatoid arthritis without rheumatoid factor, multiple sites (principal); Z79.899 Other long term (current) drug therapy; M15.9 Polyosteoarthritis, unspecified; K21.0 Gastro-esophageal reflux disease with esophagitis; M47.897 Other spondylosis, lumbosacral region; M51.37 Other intervertebral disc degeneration, lumbosacral region; M47.892 Other spondylosis, cervical region; K51.80 Other ulcerative colitis without complications; I10 Essential (primary) hypertension; E78.5 Hyperlipidemia, unspecified; E11.9 Type 2 diabetes mellitus without complications
CPT/HCPCS: 36415; 80053; 85025

== ENCOUNTER → 2018-08-04 07:56 | Outpatient (CLI) | payer MEDICARE, OTHER, SELFPAY ==
[2018-08-04 08:06] VITALS: BP 155/89; PULSE 78; RESP 16; TEMP 36.2; O2SAT 95; BMI 33.7
[2018-08-04 09:05] VITALS: BP 148/78; PULSE 69; RESP 16
[2018-08-04 09:25] VITALS: BP 137/77; PULSE 70; TEMP 37.1
[2018-08-04 09:35] VITALS: BP 131/80; PULSE 71; RESP 18; TEMP 36.9
[2018-08-04 09:50] VITALS: BP 140/80; PULSE 70; RESP 16; TEMP 37
[2018-08-04 10:58] VITALS: BP 132/78; PULSE 65; RESP 16; TEMP 36.3; O2SAT 93
== END ==
PROVIDERS: Family Provider Family Medicine; PCP Family Medicine; Visit Provider Internal Medicine Rheumatology
DX: M06.09 Rheumatoid arthritis without rheumatoid factor, multiple sites (principal); K51.80 Other ulcerative colitis without complications
CPT/HCPCS: 96413; 96415; J7050; A4216; Q5103

== ENCOUNTER → 2018-08-14 09:31 | Outpatient (CLI) | payer MEDICARE, OTHER, SELFPAY ==
[2018-08-14 12:34] LABS: Anion Gap 10 (5-15); BUN 16 mg/dL (7-18); Calcium,Total 8.7 mg/dL (8.5-10.1); Chloride 108 mmol/L (98-107); Creatinine, Serum 1.23 mg/dL (0.70-1.30); EST Glomerular Filtration Rate 61 mL/min (>60); Est Glom Filt Rate - Afr Amer 74 mL/min (>60); Glucose 168 mg/dL (74-106); PSA,Total - Annual Screen 2.38 ng/mL (0.00-4.00); Potassium 3.6 mmol/L (3.5-5.1); Sodium Level 143 mmol/L (136-145)
== END ==
PROVIDERS: Family Provider Family Medicine; PCP Family Medicine; Visit Provider Family Medicine
DX: Z12.5 Encounter for screening for malignant neoplasm of prostate (principal); N40.0 Benign prostatic hyperplasia without lower urinary tract symptoms
CPT/HCPCS: 36415; 80048; 84153; G0103

== ENCOUNTER 2018-09-17 20:00 | Inpatient (IN) | payer MEDICARE, OTHER, SELFPAY ==
[2018-09-17] VITALS (9 sets, daily range): BP systolic 155–208; BP diastolic 90–104; PULSE 90–119; RESP 16–25; TEMP 36.7–37.3; O2SAT 90–99; BMI 33.2
--- NOTE | 2018-09-17 20:04 | RAD_ITS ---
STUDY: X-RAY CHEST REASON FOR EXAM: Male, 73 years old. Shortness of breath TECHNIQUE: Single frontal view of the chest. COMPARISON: CTA chest and chest x-ray January 22, 2018 FINDINGS: Cervical hardware. The lungs are clear and expanded. There is no demonstrated pleural abnormality. Normal size heart. Normal mediastinum and corina. Normal visualized pulmonary arteries. Normal visualized aortic arch and descending thoracic aorta. Normal visualized thoracic spine. Normal visualized ribs, clavicles, and shoulders. There is no demonstrated abnormality of the visualized soft tissue structures of the upper abdomen. RAD/Chest 1 View (Portable) IMPRESSION: Normal x-ray examination of the chest. Electronically Signed: Estuardo Gotti MD at 20:56 EST , Service support ,
[2018-09-17 20:17] LABS: Absolute Lymphocyte Count 3.13 X10^3/ul (0.83-4.51); Absolute Neutrophil Count 12.4 X10^3/uL (2.0-7.7); Basophil# 0.01 X10^3/uL; Basophil% 0.1 % (0-1); Eosinophil# 0.01 X10^3/uL; Eosinophils% 0.1 % (0-5); Hematocrit 45.4 % (40-54); Hemoglobin 15.2 g/dl (13.0-16.5); Lymphocyte # 3.13 X10^3/ul (4.0); Lymphocyte % 19.1 % (19-41); Mean Corp Hgb Conc 33.5 g/gl (32-36); Mean Corpuscular Hgb 30.2 pg (27.0-32.0); Mean Corpuscular Volume 90.3 fL (80-94); Mean Platelet Vol. 10.6 fl (6.2-12.0); Monocyte# 0.78 X10^3/uL; Monocyte% 4.8 % (0-10); Neutrophil # 12.35 X10^3/uL (2.7-7.7); Neutrophil % 75.4 % (47-70); Platelet Count 328 K/mm3 (150-450); RBC Distribution Width CV 15.1 % (11.6-14.6); RBC Distribution Width SD 49.7 fl (35.1-43.9); Red Blood Count 5.03 M/mm3 (4.6-6.2); White Blood Count 16.4 K/mm3 (4.4-11.0)
--- NOTE | 2018-09-17 20:23 | EKG12_ITS ---
Test Reason : Blood Pressure : / mmHG Vent. Rate : 109 BPM Atrial Rate : 109 BPM P-R Int : 162 ms QRS Dur : 086 ms QT Int : 344 ms P-R-T Axes : 032 -32 -23 degrees QTc Int : 463 ms Sinus tachycardia Left axis deviation Inferior infarct , age undetermined Anterolateral infarct , age undetermined Abnormal ECG Confirmed by ALBA LAUGHLIN, JAKE ([id number]), makeup editor MANA LINTON ([id number]) on 09/19/2018 2:01:56 PM Referred By: Kimmie Nur Confirmed By:JAKE WILLIS MD
[2018-09-17 20:32] LABS: BUN 21 mg/dL (7-18); Estimated Creatinine Clearance 41.77 ml/min; Glucose 288 mg/dL (74-106)
[2018-09-17 20:33] LABS: ALB/GLOB Ratio 0.8 RATIO (0.9-2.4); AST(SGOT) 29 U/L (15-37); Alanine Aminotransfer ALT/SGPT 46 U/L (16-61); Albumin, Serum 3.9 g/dL (3.2-5.0); Alkaline Phosphatase 79 U/L (45-117); Anion Gap 14 (5-15); Calcium,Total 9.1 mg/dL (8.5-10.1); Chloride 103 mmol/L (98-107); EST Glomerular Filtration Rate 53 mL/min (>60); Est Glom Filt Rate - Afr Amer 64 mL/min (>60); Globulin 4.9 g/dL (2.2-4.2); Potassium 3.9 mmol/L (3.5-5.1); Protein, Total 8.8 g/dL (6.4-8.2); Sodium Level 141 mmol/L (136-145)
[2018-09-17 20:35] LABS: POSITIVE COUNT NO; POSITIVE DIFFERENTIAL NO; POSITIVE MORPHOLOGY NO
[2018-09-17] MEDS: 0.9% Normal Saline 1,000 ML 150 ML IV (20:38)
[2018-09-17] MEDS: Ipratropium/Albuterol Sulfate 3 ML AMPUL.NEB INHALATION (20:49)
--- NOTE | 2018-09-17 20:54 | ED.VISSUMM ---
- ER Visit Summary Date of Service: 09/17/18 Chief Complaint: [] Cough low-grade fevers for weeks failed prednisone outpatient antibiotics History of Present Illness: The patient is a 73 M [] he of COPD reports for weeks he has had a harsh cough he was recently started on Augmentin and oral prednisone that did not help he had intensification of the cough and shortness of breath he was brought in for evaluation he uses aerosolized machine at home he has no history of DE PE or DVT his COPD is generally well controlled he also reports he does receive immune modulation medication such as Remicade related to rheumatoid arthritis and colitis therapy Physical Examination: [] 200/100 heart rate 110 pulse ox 99% on 2 L temperature 99 General, no distress resting comfortably except for very harsh cough and hoarseness to his voice his airways intact HEENT is generally unremarkable The neck is supple no adenopathy Cardiovascular, regular rate and rhythm Lungs, diffuse loud wheezing in all areas very harsh cough dry nonproductive Abdomen, soft nontender Extremities, no clubbing cyanosis or edema Neurologic, awake alert answering questions appropriately moving all 4 extremities Test Results: [] Emergency Department Course and Treatment: [] In all the above screening labs aerosols, he has a risk for immunocompromise state due to the Remicade therapy and that we will start IV antibiotics Treatment Plan: [] Screening labs show white count of 16,000 creatinine about 1.5, lactic acid is about 6, he has no fever no hypotension been very stable here, no signs of sepsis or severe sepsis, he has received fluid bolus he has been medicated IV fluids etc. given all the above have asked the hospital see him for further management Disposition: [] Admits stable Impression: [], Exacerbation of COPD, pneumonia, failed outpatient therapy, elevated lactate This note was generated with [employer]ze[employer] dictation software. It may contain incorrect words, spelling, and punctuation that were not noted in review of the chart prior to signing ED Disposition - Plan for ED Patient: Chief Complaint: Shortness of Breath Referrals: Jayme Yang MD [Primary Care Provider] -
[2018-09-17 21:06] LABS: BNP,B-Type NATRIURETIC PEPTIDE 74.6 pg/mL (0-100)
[2018-09-17] MEDS: MethylPREDNISolone 125 MG/2 ML Vial IV (21:48)
[2018-09-17 22:14] LABS: Lactic Acid 5.9 mmol/L (0.4-2.0)
--- NOTE | 2018-09-17 22:14 | ED.RN ---
Addendum entered by Marlyn Lezama 09/17/18 22:16: NOTE LEFT FOR DR. EDWARD, PHYSICIAN NOT IN OFFICE AT THIS TIME. Original Note: LAB CALLED WITH LACTIC ACID 5.9
[2018-09-17] MEDS: 0.9% Normal Saline 1,000 ML 999 ML IV (22:44)
--- NOTE | 2018-09-17 23:14 | HP.PCM_ITS ---
History of Present Illness Date of Admission: 09/17/18 Chief Complaint: shortness of breath The patient is a 73 year old M with a PMH as listed below. He was admitted with a complaint of worsening shortness of breath, cough and wheezing for the past 2 weeks. Patient went to [place] to visit relatives and says some of his family members had an URTI. He subsequently developed fever, a cough and shortness of breath. He also had associated wheezign. He was started on Augmentin and oral prednisone by his PCP but symptoms did not resolve and actually worsened. He has a history of asthma for which he uses inhalers at he has been using them but still not improving. He denied any chest pain, any history of DVT or PE, any abdominal pain, any diarrhea vomiting. Review of systems otherwise negative. Vitals in the ED was significant for elevated blood pressure in the 170s systolic and he was saturating at 95% on 2 L of oxygen. Labs were significant for creatinine of 1.4 and lactic acid of 5.9. CBC showed white cell count of 16.4 and was otherwise normal. BNP was 74.6 and initial troponin was negative. Chest x-ray showed no acute cardiopulmonary process. He is being admitted to be managed for asthma exacerbation and URTI. [] Past Medical History Past Medical History (Chronic Problems): Chronic Problems DM2 (diabetes mellitus, type 2) (Chronic) Inflammatory bowel disease (Chronic) Benign essential HTN (Chronic) Rheumatoid aortitis (Chronic) Allergies aspirin Allergy (Verified 09/17/18 20:04) Swelling morphine Adverse Reaction (Verified 09/17/18 20:04) UNABLE TO URINATE Home Medications: Ambulatory Orders Medication Instructions Recorded Amlodipine/Benazepril [Lotrel 1 capsule PO DAILY 07/20/13 10-40 MG Capsule] Gabapentin [Neurontin] 600 mg PO BID 07/20/13 Finasteride [Proscar] 5 mg PO DAILY 03/14/15 Chlorthalidone [Hygroton] 50 mg PO DAILY 12/24/16 Infliximab-DYYB [Inflectra] 100 mg IV .COMPLEX 02/18/17 Esomeprazole Magnesium [Nexium 22.3 mg PO DAILY 04/15/17 24Hr] Loratadine [Claritin] 10 mg PO QHS 04/15/17 Albuterol Sulfate [Ventolin Hfa] 2 puff INHALATION BID 01/22/18 Clonidine HCl [Catapres] 0.2 mg PO BID 01/22/18 Glimepiride [Amaryl] 2 mg PO DAILY 01/22/18 Metoprolol Tartrate [Lopressor 50 mg PO BID 01/22/18 (beta andrey)] Amoxicillin/Potassium Clav 1 tab PO BID 09/17/18 [Amox-Clav 875-125 mg Tablet] Balsalazide Disodium 2,250 mg PO BID 09/17/18 Calcium (Elemental) [Os-Abiel 500] 500 mg PO DAILY@0800 09/17/18 Duloxetine HCl 60 mg PO DAILY 09/17/18 Ipratropium/Albuterol Sulfate 3 ml INHALATION Q4H PRN PRN 09/17/18 [Iprat-Albut 0.5-3(2.5) mg/3 ml] Metformin HCl 1,000 mg PO BID 09/17/18 Multivit-Min/FA/Lycopen/Lutein 1 each PO DAILY 09/17/18 [Centrum Silver Men Tablet] Eden-3 Fatty Acids/Fish Oil 1,000 mg PO DAILY 09/17/18 [Eden 3 1,000 mg Softgel] Eden-3 Fatty Acids/Fish Oil 2,000 mg PO QHS 09/17/18 [Eden 3 1,000 mg Softgel] Prednisone See Taper PO DAILY 09/17/18 Simvastatin 40 mg PO QHS 09/17/18 Surgical History: no surgical history, noncontributory, - - Fusion of the cervical spine, lumbar spine surgery, bilateral knee replacements, partial colon resection due to diverticulitis Psychiatric History: No pertinent psych hx Smoking Status: Former smoker - *Family History Maternal History Items: Heart Disease Paternal History Items: COPD, Heart Disease Review of Systems Constitutional: Reports: Malaise, Weakness, Fatigue. Denies: Chills, Fever, Weight Change Eyes: Denies: Blurred vision HEENT: Denies: Head Aches, Sinus Congestion, Sinus Drainage Cardiovascular: Denies: Chest Pain, Chest Pressure, Chest Tightness, Light Headedness, Palpitations, Syncope Respiratory: Reports: Cough, Shortness of Breath, Shortness of breath at rest, Shortness of breath upon exertion, Wheezing. Denies: Sputum production Gastrointestinal: Denies: Abdominal Pain, Nausea, Vomiting Genitourinary: Denies: Dysuria Musculoskeletal: Denies: Joint Pain, Joint Tenderness Skin: Denies: Rash, Wounds Neurological: Denies: Numbness, Tingling, Focal weakness Psychiatric: Denies: Anxiety, Depression, Homicidal Ideations, Suicidal Ideations Hematologic/ Lymphatic: Denies: Easy Bruising, Easy Bleeding VTE Information - Inpt Only VTE Present on Admission: No VTE Pharm Prophylaxis ordered?: Yes - Physical Exam General: Alert, Oriented x3, Cooperative, No apparent distress HEENT: Atraumatic, PERRLA, EOMI, Normocephalic Oral: Moist Mucosa Neck: Supple, No JVD, Negative Carotid Bruits Lungs: - - coarse expiratory wheezing and rhonchi in all lung kuo; Cardiovascular: Regular rate, Regular Rhythm, Normal S1, Normal S2, No murmurs Abdomen: Bowel Sounds Present, Soft, Non Tender Extremities: No clubbing, No cyanosis, No edema, Capillary Refill Less than 3 Seconds Skin: No rashes, No breakdown Musculoskeletal: No Tenderness to Palpation of Joints or Extremities Lymphatic: No Cervical, Supraclavicular, or Inguinal Adenopathy Neurological: Cranial nerves II-XII grossly intact, Neuro grossly intact, Motor Exam 5/5 strength throughout Psych/Mental Status: Normal Affect, Appropriate, Alert and oriented to time, place, person, mood and affect Vital Signs Temp Pulse Resp BP Pulse Ox 98.3 F 99 20 H 155/90 H 93 09/17/18 22:06 09/17/18 22:06 09/17/18 22:06 09/17/18 22:05 09/17/18 22:06 Oxygen Flow Rate (L/min) 2 Oxygen Delivery Method Nasal Cannula Weight: 206 lb Body Mass Index (BMI) 33.2 Finger Stick Blood Glucose 151 Laboratory Tests Past 24 Hrs 09/17/18 09/17/18 09/17/18 20:00 20:00 20:00 WBC 16.4 H RBC 5.03 Hgb 15.2 Hct 45.4 MCV 90.3 MCH 30.2 MCHC 33.5 RDW 15.1 H RDW Differential 49.7 H Plt Count 328 MPV 10.6 Immature Gran % (Auto) 0.500 Neut % (Auto) 75.4 H Lymph % (Auto) 19.1 [place] % (Auto) 4.8 Eos % (Auto) 0.1 Baso % (Auto) 0.1 Absolute Neuts (auto) 12.4 H Absolute Lymphs (auto) 3.13 Total Counted Not Reportable Sodium 141 Potassium 3.9 Chloride 103 Carbon Dioxide 24.0 Anion Gap 14 BUN 21 H Creatinine 1.40 H Estim Creat Clear Calc 41.77 Est GFR (MDRD) Af Amer 64 Est GFR (MDRD) Non-Af 53 L BUN/Creatinine Ratio 15.0 Glucose 288 H Lactic Acid Calcium 9.1 Total Bilirubin 0.30 AST 29 ALT 46 Alkaline Phosphatase 79 Troponin I < 0.015 B-Natriuretic Peptide Total Protein 8.8 H Albumin 3.9 Globulin 4.9 H Albumin/Globulin Ratio 0.8 L 09/17/18 09/17/18 20:00 20:00 WBC RBC Hgb Hct MCV MCH MCHC RDW RDW Differential Plt Count MPV Immature Gran % (Auto) Neut % (Auto) Lymph % (Auto) [place] % (Auto) Eos % (Auto) Baso % (Auto) Absolute Neuts (auto) Absolute Lymphs (auto) Total Counted Sodium Potassium Chloride Carbon Dioxide Anion Gap BUN Creatinine Estim Creat Clear Calc Est GFR (MDRD) Af Amer Est GFR (MDRD) Non-Af BUN/Creatinine Ratio Glucose Lactic Acid 5.9 H* Calcium Total Bilirubin AST ALT Alkaline Phosphatase Troponin I B-Natriuretic Peptide 74.6 Total Protein Albumin Globulin Albumin/Globulin Ratio Diagnostic Data Chest X-Ray 09/17/18 20:04 IMPRESSION: Normal x-ray examination of the chest. Electronically Signed: Estuardo Gotti MD at 20:56 EST , Service support , Assessment/Plan All Active Problems Cough productive of purulent sputum (Acute) Left wrist pain (Acute) Ureteral calculus, right (Acute) Hyperlipidemia (Acute) Shortness of breath (Acute) Chest tightness (Acute) Syncopal episodes (Acute) 73 y/o admitted with a complaint of low grade fever, shortness of breath and cough 1. Acute respiratory insufficiency due to asthma exacerbation * usually not on oxygen at home. Now requiring 2L of oxygen * has coarse crackles in all lung kuo, with expiratory rhonchi and wheezing * failed outpatient steroids and augmentin treatment * CXR showed no acute cardiopulmonary process * admit to PC[facility] with telemetry * IV solumedrol 40mg q8 * IV levaquin 500mg daily * PO robitussin for cough * breathing treatments with ativan * check respiratory panel 2. Acute asthma exacerbation likely precipitated by URTI * as under 1. breathing treatments with atrovent. IV solumedrol 3. LActic acidosis: lactic acid was 5.9 on admission. Will hydrate and repeat. 4. Hypertension: * Blood pressure elevated in 170s on admission. Likely due to patient's agitation from severe cough. * Resume BP meds- chlorthalidone, amlodipine/benazepril and metoprolol * IV hydralazine as needed. 5. BPH: on Finasteride. 6. Diabetes mellitus:on glimepiride and metformin. ISS. Accuchecks ACHS 7.Hyperlipidemia: on statin 8. Rheumatoid arthritis: on remicaid. DVT prophylaxis: heparin code status: full code * Patient and counseled extensively about different types of CODE STATUS including full code, DNR CCA and DNR CCA. Patient elects to be full code. Total [id number] time 17 minutes. Code Visit Inpatient E&M: 52465 Init Hosp L3 Procedures: 35710 Advncd Care Plan 30 Min
[2018-09-18] VITALS (20 sets, daily range): BP systolic 139–196; BP diastolic 89–117; PULSE 90–130; RESP 16–24; TEMP 36.3–36.9; O2SAT 93–96; BMI 33.0
[2018-09-18 01:02] LABS: Bacteria 0 SEEN /hpf (None Seen); Mucous, Urine 0 SEEN /hpf (<or=2+); Red Blood Cells-Urine 0 SEEN /hpf (0-5); Squamous Epithelial Cells - UA 0 SEEN /hpf (0-5); White Blood Cells 0 SEEN /hpf (0-5)
[2018-09-18 01:09] LABS: Color, Urine Yellow (Yellow); Glucose, Dipstick 100 mg/dl (Normal); Ketone-Dipstick Negative (Negative); Leukocyte Esterase-Dipstick Negative /ul (Negative); Nitrite-Dipstick Negative (Negative); Occult Blood-Urine Negative /ul (Negative); Protein-Dipstick 100 mg/dl (Negative); Urine Bilirubin Dipstick Negative (Negative); Urine Clarity Clear (Clear); Urine Urobilinogen Normal (Normal)
[2018-09-18 01:15] LABS: Calcium Oxalate Crystals Ur 2+ /hpf (<or=2+)
[2018-09-18] MEDS: 0.9% NaCl Peripheral Flush Adult/Peds IV ×2 (01:24→05:08)
[2018-09-18 01:29] LABS: Reflex Lactate? Y
[2018-09-18 01:41] LABS: Bedside Glucose 154 mg/dL (70-110)
[2018-09-18] MEDS: Acetaminophen 325 MG Tablet 650 MG PO (01:55)
[2018-09-18 02:40] LABS: Lactic Acid 4.4 mmol/L (0.4-2.0)
[2018-09-18] MEDS: 0.9% Normal Saline 1,000 ML 150 ML IV ×2 (04:00→11:49)
[2018-09-18] MEDS: guaiFENesin 10 ML UDC (200MG/10ML) PO ×2 (04:00→17:07)
[2018-09-18] MEDS: Heparin Injection (Vial) 5,000 UNIT/ML VIAL 5000 UNIT SC ×3 (05:08→22:24)
[2018-09-18 05:38] LABS: Absolute Neutrophil Count 11.8 X10^3/uL (2.0-7.7); Basophil# 0.01 X10^3/uL; Basophil% 0.1 % (0-1); Hematocrit 38.8 % (40-54); Hemoglobin 12.9 g/dl (13.0-16.5); Lymphocyte % 10.4 % (19-41); Mean Corp Hgb Conc 33.2 g/gl (32-36); Mean Corpuscular Hgb 30.1 pg (27.0-32.0); Mean Corpuscular Volume 90.7 fL (80-94); Mean Platelet Vol. 10.8 fl (6.2-12.0); Monocyte# 0.17 X10^3/uL; Monocyte% 1.3 % (0-10); Neutrophil # 11.79 X10^3/uL (2.7-7.7); Neutrophil % 87.8 % (47-70); Platelet Count 262 K/mm3 (150-450); RBC Distribution Width SD 49.5 fl (35.1-43.9); Red Blood Count 4.28 M/mm3 (4.6-6.2); White Blood Count 13.4 K/mm3 (4.4-11.0)
[2018-09-18 05:40] LABS: POSITIVE COUNT NO; POSITIVE DIFFERENTIAL NO; POSITIVE MORPHOLOGY NO
[2018-09-18 05:55] LABS: Anion Gap 12 (5-15); BUN 19 mg/dL (7-18); BUN/Creat Ratio 16.8 RATIO (10-20); Chloride 108 mmol/L (98-107); Creatinine, Serum 1.13 mg/dL (0.70-1.30); EST Glomerular Filtration Rate 67 mL/min (>60); Est Glom Filt Rate - Afr Amer 82 mL/min (>60); Estimated Creatinine Clearance 53.62 ml/min; Glucose 211 mg/dL (74-106); Potassium 3.9 mmol/L (3.5-5.1); Sodium Level 143 mmol/L (136-145)
--- NOTE | 2018-09-18 05:55 | EKG12_ITS ---
Test Reason : AM EKG Blood Pressure : / mmHG Vent. Rate : 095 BPM Atrial Rate : 095 BPM P-R Int : 168 ms QRS Dur : 088 ms QT Int : 368 ms P-R-T Axes : 042 -33 -07 degrees QTc Int : 462 ms Normal sinus rhythm Left axis deviation Septal infarct (cited on or before 09-SEP-2010) Inferior infarct , age undetermined Abnormal ECG When compared with ECG of 01-JUN-2018 05:57, Premature atrial complexes are no longer Present Confirmed by JAKE WILLIS MD ([id number]), editor farm journal MANA LINTON ([id number] on 09/19/2018 2:05:57 PM Referred By: Kimmie Nur Confirmed By:JAKE WILLIS MD
[2018-09-18 06:09] LABS: Lactic Acid 4.3 mmol/L (0.4-2.0)
[2018-09-18 06:56] LABS: Bedside Glucose 222 mg/dL (70-110)
[2018-09-18] MEDS: metFORMIN HCl 1,000 MG Tablet 1000 MG PO ×2 (08:24→17:05)
[2018-09-18] MEDS: Glimepiride 2 MG Tablet PO (08:24)
[2018-09-18] MEDS: Multivitamins,Ther W-Minerals Tablet 1 TABLET PO (08:24)
[2018-09-18] MEDS: Insulin Lispro 100 UNIT/ML INSULN.PEN SC ×3 (08:24→22:25)
[2018-09-18] MEDS: Calcium (Elemental) 500 MG Tablet PO (08:24)
[2018-09-18] MEDS: amLODIPine 10 MG Tablet PO (09:21)
[2018-09-18] MEDS: Lisinopril 40 MG Tablet PO (09:21)
[2018-09-18] MEDS: Metoprolol Tartrate 50 MG Tablet PO ×2 (09:22→22:25)
[2018-09-18] MEDS: Finasteride 5 MG Tablet PO (09:22)
[2018-09-18] MEDS: Chlorthalidone 50 MG Tablet PO (09:22)
[2018-09-18] MEDS: Gabapentin 600 MG Tablet PO ×2 (09:22→22:26)
[2018-09-18] MEDS: DULoxetine Hcl 60 MG Capsule PO (09:22)
[2018-09-18] MEDS: Omega-3 Acid Ethyl Esters 1 GM Capsule PO (09:23)
[2018-09-18] MEDS: cloNIDine HCl 0.2 MG Tablet PO ×2 (09:23→22:24)
[2018-09-18] MEDS: levoFLOXacin IV 500 MG/100 ML BAG 100 MG IV (09:30)
[2018-09-18] MEDS: Pantoprazole Sodium 20 MG Tablet PO ×2 (09:30→22:36)
[2018-09-18 09:32] LABS: Reflex Lactate? Y
[2018-09-18 10:00] LABS: Lactic Acid 4.2 mmol/L (0.4-2.0)
[2018-09-18 11:25] LABS: Bedside Glucose 200 mg/dL (70-110)
[2018-09-18] MEDS: sulfaSALAzine 500 MG Tablet PO ×2 (11:54→17:05)
--- NOTE | 2018-09-18 12:28 | PN_ITS ---
Subjective: Patient seen and examined. Complains of harsh persistent cough. States he was unable to sleep last night due to cough. Mostly nonproductive. Complains of chest tightness and shortness of breath. - Physical Exam General: Alert, Oriented x3, Cooperative HEENT: Atraumatic, PERRLA, EOMI, Normocephalic Oral: Moist Mucosa Neck: Supple, No JVD, Negative Carotid Bruits Lungs: Normal air movement, Rhonchi, Wheezes Cardiovascular: Regular Rhythm, Normal S1, Normal S2, No murmurs, Tachycardic Abdomen: Bowel Sounds Present, Soft, Non Tender, Non-Distended Extremities: No clubbing, No cyanosis, No edema, Capillary Refill Less than 3 Seconds Skin: No rashes, No breakdown Musculoskeletal: No Tenderness to Palpation of Joints or Extremities Neurological: Cranial nerves II-XII grossly intact, Neuro grossly intact Psych/Mental Status: Normal Affect, Appropriate Vital Signs Temp Pulse Resp BP Pulse Ox 98.5 F 110 H 18 179/98 H 96 09/18/18 09:10 09/18/18 11:00 09/18/18 09:10 09/18/18 09:22 09/18/18 09:10 Oxygen Flow Rate (L/min) 2 Oxygen Delivery Method Nasal Cannula Weight: 210 lb 8.663 oz Body Mass Index (BMI) 33.0 Finger Stick Blood Glucose 151 Intake and Output for Last 24 Hours 09/16/18 09/17/18 09/18/18 23:59 23:59 23:59 Intake Total 1840 / 1840 Output Total 600 / 600 Balance 1240 / 1240 Laboratory Tests Past 24 Hrs 09/17/18 09/17/18 09/17/18 20:00 20:00 20:00 WBC 16.4 H RBC 5.03 Hgb 15.2 Hct 45.4 MCV 90.3 MCH 30.2 MCHC 33.5 RDW 15.1 H RDW Differential 49.7 H Plt Count 328 MPV 10.6 Immature Gran % (Auto) 0.500 Neut % (Auto) 75.4 H Lymph % (Auto) 19.1 [place] % (Auto) 4.8 Eos % (Auto) 0.1 Baso % (Auto) 0.1 Absolute Neuts (auto) 12.4 H Absolute Lymphs (auto) 3.13 Total Counted Not Reportable Sodium 141 Potassium 3.9 Chloride 103 Carbon Dioxide 24.0 Anion Gap 14 BUN 21 H Creatinine 1.40 H Estim Creat Clear Calc 41.77 Est GFR (MDRD) Af Amer 64 Est GFR (MDRD) Non-Af 53 L BUN/Creatinine Ratio 15.0 Glucose 288 H Lactic Acid Calcium 9.1 Total Bilirubin 0.30 AST 29 ALT 46 Alkaline Phosphatase 79 Troponin I < 0.015 B-Natriuretic Peptide Total Protein 8.8 H Albumin 3.9 Globulin 4.9 H Albumin/Globulin Ratio 0.8 L Urine Color Urine Clarity Urine pH Ur Specific [place] Urine Protein Urine Glucose (UA) Urine Ketones Urine Occult Blood Urine Nitrite Urine Bilirubin Urine Urobilinogen Ur Leukocyte Esterase Urine RBC Urine WBC Ur Squamous Epith Cells Calcium Oxalate Crystal Urine Bacteria Urine Mucus 09/17/18 09/17/18 09/18/18 20:00 20:00 00:50 WBC RBC Hgb Hct MCV MCH MCHC RDW RDW Differential Plt Count MPV Immature Gran % (Auto) Neut % (Auto) Lymph % (Auto) [place] % (Auto) Eos % (Auto) Baso % (Auto) Absolute Neuts (auto) Absolute Lymphs (auto) Total Counted Sodium Potassium Chloride Carbon Dioxide Anion Gap BUN Creatinine Estim Creat Clear Calc Est GFR (MDRD) Af Amer Est GFR (MDRD) Non-Af BUN/Creatinine Ratio Glucose Lactic Acid 5.9 H* Calcium Total Bilirubin AST ALT Alkaline Phosphatase Troponin I B-Natriuretic Peptide 74.6 Total Protein Albumin Globulin Albumin/Globulin Ratio Urine Color Yellow Urine Clarity Clear Urine pH 6.0 Ur Specific [place] 1.020 Urine Protein 100 H Urine Glucose (UA) 100 H Urine Ketones Negative Urine Occult Blood Negative Urine Nitrite Negative Urine Bilirubin Negative Urine Urobilinogen Normal Ur Leukocyte Esterase Negative Urine RBC 0 SEEN Urine WBC 0 SEEN Ur Squamous Epith Cells 0 SEEN Calcium Oxalate Crystal 2+ Urine Bacteria 0 SEEN Urine Mucus 0 SEEN 09/18/18 09/18/18 09/18/18 02:00 05:26 05:26 WBC 13.4 H RBC 4.28 L Hgb 12.9 L Hct 38.8 L MCV 90.7 MCH 30.1 MCHC 33.2 RDW 15.0 H RDW Differential 49.5 H Plt Count 262 MPV 10.8 Immature Gran % (Auto) 0.400 Neut % (Auto) 87.8 H Lymph % (Auto) 10.4 L [place] % (Auto) 1.3 Eos % (Auto) 0.0 Baso % (Auto) 0.1 Absolute Neuts (auto) 11.8 H Absolute Lymphs (auto) 1.40 Total Counted Not Reportable Sodium 143 Potassium 3.9 Chloride 108 H Carbon Dioxide 23.0 Anion Gap 12 BUN 19 H Creatinine 1.13 Estim Creat Clear Calc 53.62 Est GFR (MDRD) Af Amer 82 Est GFR (MDRD) Non-Af 67 BUN/Creatinine Ratio 16.8 Glucose 211 H Lactic Acid 4.4 H* Calcium 8.0 L Total Bilirubin AST ALT Alkaline Phosphatase Troponin I B-Natriuretic Peptide Total Protein Albumin Globulin Albumin/Globulin Ratio Urine Color Urine Clarity Urine pH Ur Specific [place] Urine Protein Urine Glucose (UA) Urine Ketones Urine Occult Blood Urine Nitrite Urine Bilirubin Urine Urobilinogen Ur Leukocyte Esterase Urine RBC Urine WBC Ur Squamous Epith Cells Calcium Oxalate Crystal Urine Bacteria Urine Mucus 09/18/18 09/18/18 05:26 08:40 WBC RBC Hgb Hct MCV MCH MCHC RDW RDW Differential Plt Count MPV Immature Gran % (Auto) Neut % (Auto) Lymph % (Auto) [place] % (Auto) Eos % (Auto) Baso % (Auto) Absolute Neuts (auto) Absolute Lymphs (auto) Total Counted Sodium Potassium Chloride Carbon Dioxide Anion Gap BUN Creatinine Estim Creat Clear Calc Est GFR (MDRD) Af Amer Est GFR (MDRD) Non-Af BUN/Creatinine Ratio Glucose Lactic Acid 4.3 H* 4.2 H* Calcium Total Bilirubin AST ALT Alkaline Phosphatase Troponin I B-Natriuretic Peptide Total Protein Albumin Globulin Albumin/Globulin Ratio Urine Color Urine Clarity Urine pH Ur Specific [place] Urine Protein Urine Glucose (UA) Urine Ketones Urine Occult Blood Urine Nitrite Urine Bilirubin Urine Urobilinogen Ur Leukocyte Esterase Urine RBC Urine WBC Ur Squamous Epith Cells Calcium Oxalate Crystal Urine Bacteria Urine Mucus POC Glucose 09/18/18 09/18/18 09/18/18 11:20 06:52 00:34 POC Glucose 200 H 222 H 154 H Medical Necessity - Tobacco Use Smoking Status: Former smoker Assessment/Plan All Active Problems Cough productive of purulent sputum (Acute) Left wrist pain (Acute) Ureteral calculus, right (Acute) Hyperlipidemia (Acute) Shortness of breath (Acute) Chest tightness (Acute) Syncopal episodes (Acute) 1. Acute hypoxic respiratory insufficiency secondary to acute exacerbation of asthma, failed outpatient treatment with oral steroids and augmentin-chest x-ray on admission without acute process. Respiratory panel pending. Continue IV Levaquin, IV Solu-Medrol. Add tessalon perel TID PRN for cough. PEP/IS. Continue supplement oxygen to maintain O2 sat above 90%. 2. Suspected acute sepsis, present on admission- unclear source at this time, respiratory panel pending. Suspect viral URI etiology. Patient with tachycardia, tachypnea, leukocytosis and lactic acidosis on admission. Lactic acid mildly improved, currently 4.2. Continue IV fluids. Lactic acidosis possibly reactive due to acute respiratory insufficiency as well. 3. Hypertensive urgency-SBP >200 on admission. SBP currently 170s. Continue amlodipine, clonidine, lisinopril, metoprolol, chlorthalidone. Add hydralazine as needed for SBP greater than 160. Continue to monitor. 4. Type 2 diabetes mellitus-continue home Amaryl, metformin regimen. Accu-Cheks before meals at bedtime with sliding scale insulin. 5. Hyperlipidemia- continue statin, lovaza. 6. Rheumatoid arthritis- continue remicaid. 7. Depression-continue home Cymbalta regimen. 8. BPH- continue proscar regimen. 9. GERD- continue PPI. DVT prophylaxis-heparin subcu This patient was seen by TERESE Basurto under the supervision of Dr. Sterling.
[2018-09-18 13:16] LABS: Reflex Lactate? Y
--- NOTE | 2018-09-18 14:03 | CASEMGMT ---
OCTAVIO BERMUDEZ assessment: Face to Face with patient for initial transition planning/care coordination assessment. OCTAVIO BERMUDEZ introduced self and role at [facility]. pt voices understanding and consents to assessment at this time. Pt is sitting up in bed in no distress at this time. Pt is A/O x43 at this time and answers all questions appropriately at this time. Pt is hard of hearing and strains to understand this RN AIDAN with mask in place. Pt's is at bedside during assessment and assists with answering questions for pt at this time. Care providers, pharmacy, and demographics verified at this time. PCP: Trey Specialists: becky Lange; Kizzy, rheuma; Marsha, uro Preferred Pharmacy: [facility] Insurance: [facility] A/B, AARP Prescription Benefit: Envision but 09/30/18, is will switch to [employer] Living Will/HPOA: Pt states has LW/HPOA but they are not currently on file at [facility]. Pt and aware and states they will have to find them and bring copies in. Pt states his , Natasha Gimenez, is HPOA. LNOK: Natasha Gimenez, Living Arrangements: Pt states lives with in 1 story home and states no concerns at home at this time. Transportation: Pt states drives self and states no transportation concerns at this time. DME/HHC: Pt has the following DME: w/c, walker, cane, raised toilet seat, grab bars[place] [facility] [place]/ 2 liters bled [place] thru [facility]. Pt states plans to stay with [facility] once they re-open with new facility. Pt states no need for any further DME at this time. Pt states does not currently use the cane, walkers or w/c. Pt states no hx of HHC but has been to [facility] in the past. CM to follow for continuous home oxygen need. Pt states no concerns with going home at time of discharge. Pt is retired. Pt states does not smoke or drink ETOH. Pt states no further concerns/needs at this time. CM to follow for home oxygen and any further discharge planning/needs. Advised pt to ask for CM if any further discharge planning/needs arise, voices understanding. Plan: [place] OCTAVIO BERMUDEZ
[2018-09-18 14:12] LABS: Lactic Acid 4.5 mmol/L (0.4-2.0)
--- NOTE | 2018-09-18 14:36 | CT_ITS ---
STUDY: CT SOFT TISSUE NECK WITH CONTRAST REASON FOR EXAM: Male, 73 years old. Difficulty swallowing. Severe cough. RADIATION DOSAGE (If Supplied By Facility): CTDIvol = ( 19.47 ) mGy, DLP = ( 583.52 ) mGycm TECHNIQUE: The patient was scanned in a multi-detector CT scanner. High resolution transaxial imaging was performed following intravenous administration of 75 ml of Isovue 300 contrast material. Sagittal and coronal images were reconstructed. Individualized dose optimization techniques were used for this CT. COMPARISON: None. FINDINGS: Normal bilateral parotid glands. 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 Normal bilateral parapharyngeal spaces. Normal bilateral carotid spaces. Normal bilateral sublingual and submandibular glands and spaces. Normal visualized nasopharynx. Normal retropharyngeal space. Normal perivertebral space. Normal visualized bilateral faucial tonsils. The visualized tongue, tongue base and oropharynx are normal. The visualized cervical lymph nodes (levels I-) are within normal size limits, and maintain normal morphology. There is no demonstrated solid or cystic mass lesion. There is no abnormal contrast enhancement. Normal epiglottis, bilateral vallecula and hypopharynx. The pre-epiglottic and paraglottic adipose spaces are normal. Normal visualized bilateral piriform sinuses, aryepiglottic folds, vocal cords, and arytenoid-cricoid articulations. Normal subglottic trachea. Subcentimeter hypodensity in the superior pole of the right lobe. Normal visualized pulmonary apices. Mild degree of mucosal thickening of the left maxillary sinus. Minimal nodular thickening of the mucosa along the inferior medial aspect of the right maxillary sinus. Mucosal thickening of the right sphenoid sinus. The patient is status post laminectomy and fusion of the cervical spine. Multilevel disc space narrowing and spondylosis of the cervical spine. Azygos lobe. Mild increased markings in the medial aspect of the right upper lobe. This may represent scarring or atelectasis. CT/Soft Tissue Neck WITH Contrast IMPRESSION: Mild degree of sinusitis. Electronically Signed: Shad Macias MD at 15:51 EST Tel [phone], Service support ,
[2018-09-18] MEDS: Ipratropium/Albuterol Sulfate 3 ML AMPUL.NEB INHALATION ×2 (15:28→18:53)
[2018-09-18 16:40] LABS: Bedside Glucose 112 mg/dL (70-110)
[2018-09-18] MEDS: Benzonatate 100 MG Capsule PO (17:07)
[2018-09-18] MEDS: Loratadine 10 MG Tablet PO (22:24)
[2018-09-18] MEDS: Atorvastatin Calcium 20 MG Tablet PO (22:25)
[2018-09-18] MEDS: Omega-3 Acid Ethyl Esters 1 GM Capsule 2 GM PO (22:26)
[2018-09-18] MEDS: Ipratropium Bromide 0.06% NASAL SPRAY 2 SPRAY NASAL (22:36)
[2018-09-18 22:55] LABS: Bedside Glucose 180 mg/dL (70-110)
[2018-09-19] VITALS (19 sets, daily range): BP systolic 145–182; BP diastolic 77–106; PULSE 78–110; RESP 16–18; TEMP 36.4–36.8; O2SAT 92–974
[2018-09-19] MEDS: 0.9% NaCl Peripheral Flush Adult/Peds IV ×2 (04:38→14:10)
[2018-09-19] MEDS: guaiFENesin 10 ML UDC (200MG/10ML) PO ×2 (04:38→14:20)
[2018-09-19] MEDS: hydrALAZINE 20 MG/ML Vial 10 MG IV (04:38)
[2018-09-19] MEDS: Benzonatate 100 MG Capsule PO ×2 (04:38→09:50)
[2018-09-19 06:19] LABS: Hematocrit 38.7 % (40-54); Hemoglobin 12.9 g/dl (13.0-16.5); Mean Corp Hgb Conc 33.3 g/gl (32-36); Mean Platelet Vol. 11.4 fl (6.2-12.0); Platelet Count 260 K/mm3 (150-450); RBC Distribution Width CV 15.2 % (11.6-14.6); RBC Distribution Width SD 49.5 fl (35.1-43.9); White Blood Count 15.4 K/mm3 (4.4-11.0)
[2018-09-19] MEDS: Ipratropium Bromide 0.06% NASAL SPRAY 2 SPRAY NASAL ×3 (06:22→22:22)
[2018-09-19] MEDS: Heparin Injection (Vial) 5,000 UNIT/ML VIAL 5000 UNIT SC ×3 (06:22→22:29)
[2018-09-19 06:27] LABS: Anion Gap 11 (5-15); BUN 21 mg/dL (7-18); BUN/Creat Ratio 21.8 RATIO (10-20); Calcium,Total 8.7 mg/dL (8.5-10.1); Chloride 103 mmol/L (98-107); Creatinine, Serum 0.96 mg/dL (0.70-1.30); EST Glomerular Filtration Rate 81 mL/min (>60); Est Glom Filt Rate - Afr Amer 98 mL/min (>60); Estimated Creatinine Clearance 63.12 ml/min; Glucose 168 mg/dL (74-106); Potassium 3.7 mmol/L (3.5-5.1); Sodium Level 139 mmol/L (136-145)
[2018-09-19 06:33] LABS: Scan Indicated on CBC? Y/N NO
[2018-09-19] MEDS: Ipratropium/Albuterol Sulfate 3 ML AMPUL.NEB INHALATION ×4 (06:42→19:10)
[2018-09-19 07:10] LABS: Bedside Glucose 190 mg/dL (70-110)
[2018-09-19] MEDS: Insulin Lispro 100 UNIT/ML INSULN.PEN SC ×4 (08:15→22:22)
[2018-09-19] MEDS: Glimepiride 2 MG Tablet PO (08:16)
[2018-09-19] MEDS: sulfaSALAzine 500 MG Tablet PO ×3 (08:16→16:41)
[2018-09-19] MEDS: Calcium (Elemental) 500 MG Tablet PO (08:17)
[2018-09-19] MEDS: Multivitamins,Ther W-Minerals Tablet 1 TABLET PO (08:17)
[2018-09-19] MEDS: cloNIDine HCl 0.2 MG Tablet PO ×2 (08:17→22:28)
[2018-09-19] MEDS: DULoxetine Hcl 60 MG Capsule PO (08:17)
[2018-09-19] MEDS: Metoprolol Tartrate 50 MG Tablet PO ×2 (08:18→22:28)
[2018-09-19] MEDS: Finasteride 5 MG Tablet PO (09:49)
[2018-09-19] MEDS: Omega-3 Acid Ethyl Esters 1 GM Capsule PO (09:49)
[2018-09-19] MEDS: amLODIPine 10 MG Tablet PO (09:49)
[2018-09-19] MEDS: Chlorthalidone 50 MG Tablet PO (09:49)
[2018-09-19] MEDS: Gabapentin 600 MG Tablet PO ×2 (09:49→22:28)
[2018-09-19] MEDS: Lisinopril 40 MG Tablet PO (09:50)
[2018-09-19] MEDS: Pantoprazole Sodium 20 MG Tablet PO ×2 (09:50→22:29)
--- NOTE | 2018-09-19 10:01 | EKG12_ITS ---
Test Reason : CP Blood Pressure : / mmHG Vent. Rate : 100 BPM Atrial Rate : 100 BPM P-R Int : 174 ms QRS Dur : 080 ms QT Int : 344 ms P-R-T Axes : 035 -37 -15 degrees QTc Int : 443 ms Normal sinus rhythm Left axis deviation Inferior infarct , age undetermined Anteroseptal infarct , age undetermined Abnormal ECG When compared with ECG of 18-SEP-2018 05:46, MANUAL COMPARISON REQUIRED, DATA IS UNCONFIRMED Confirmed by LAUREN MANJARREZ ([id number]), video news editor MANA LITNON ([id number]) on 09/24/2018 2:57:22 PM Referred By: Kimmie Nur Confirmed By:LAUREN MANJARREZ
[2018-09-19 12:21] LABS: Bedside Glucose 241 mg/dL (70-110)
--- NOTE | 2018-09-19 13:06 | PCM.PROGNOTE ---
Subjective: Patient seen and examined. Reports mild improvement in shortness of breath and cough. Continues to have harsh, barking cough. Nonproductive. Denies fever, chills. - Physical Exam General: Alert, Oriented x3, Cooperative HEENT: Atraumatic, PERRLA, EOMI, Normocephalic Neck: Supple, No JVD, Negative Carotid Bruits Lungs: Normal air movement, Rhonchi, Wheezes Cardiovascular: Regular Rhythm, Normal S1, Normal S2, No murmurs, Tachycardic Abdomen: Bowel Sounds Present, Soft, Non Tender, Non-Distended Extremities: No clubbing, No cyanosis, No edema, Capillary Refill Less than 3 Seconds Skin: No rashes, No breakdown Musculoskeletal: No Tenderness to Palpation of Joints or Extremities Neurological: Cranial nerves II-XII grossly intact, Neuro grossly intact Psych/Mental Status: Normal Affect, Appropriate Vital Signs Temp Pulse Resp BP Pulse Ox 97.6 F L 109 H 16 158/95 H 96 09/19/18 08:05 09/19/18 12:25 09/19/18 10:23 09/19/18 08:05 09/19/18 08:05 Oxygen Flow Rate (L/min) 2 Oxygen Delivery Method Nasal Cannula Weight: 210 lb 8.663 oz Body Mass Index (BMI) 33.0 Finger Stick Blood Glucose 151 Intake and Output for Last 24 Hours 09/17/18 09/18/18 09/19/18 23:59 23:59 23:59 Intake Total 2920 / 2920 720 / 720 Output Total 900 / 900 Balance 2019 720 / 720 Microbiology Past 72 Hours 09/18/18 00:40 Respiratory Panel (PCR) - Final Mucosa - Nasopharyngeal Rhinovirus Laboratory Tests Past 24 Hrs 09/18/18 09/19/18 09/19/18 13:31 05:09 05:09 WBC 15.4 H RBC 4.30 L Hgb 12.9 L Hct 38.7 L MCV 90.0 MCH 30.0 MCHC 33.3 RDW 15.2 H RDW Differential 49.5 H Plt Count 260 MPV 11.4 Sodium 139 Potassium 3.7 Chloride 103 Carbon Dioxide 25.0 Anion Gap 11 BUN 21 H Creatinine 0.96 Estim Creat Clear Calc 63.12 Est GFR (MDRD) Af Amer 98 Est GFR (MDRD) Non-Af 81 BUN/Creatinine Ratio 21.8 H Glucose 168 H Lactic Acid 4.5 H* Calcium 8.7 POC Glucose 09/19/18 09/19/18 09/18/18 11:34 07:05 22:22 POC Glucose 241 H 190 H 180 H 09/18/18 16:25 POC Glucose 112 H Medical Necessity - Tobacco Use Smoking Status: Former smoker Assessment/Plan All Active Problems Cough productive of purulent sputum (Acute) Left wrist pain (Acute) Ureteral calculus, right (Acute) Hyperlipidemia (Acute) Shortness of breath (Acute) Chest tightness (Acute) Syncopal episodes (Acute) 1. Acute hypoxic respiratory insufficiency secondary to acute exacerbation of asthma due to acute rhinovirus, failed outpatient treatment with oral steroids and augmentin-chest x-ray on admission without acute process. Respiratory panel positive for rhinovirus. DC IV Levaquin. Continue IV Solu-Medrol. Tessalon perel TID PRN for cough. PRN Robitussin. Hycodan nightly for cough. PEP/IS. Continue supplement oxygen to maintain O2 sat above 90%. Walking pulse ox prior to DC. 2. Acute sepsis, present on admission, secondary to acute rhinovirus- Patient with tachycardia, tachypnea, leukocytosis and lactic acidosis on admission. Lactic acidosis possibly reactive due to acute respiratory insufficiency as well. Improved. 3. Hypertensive urgency-SBP >200 on admission. Improved. Continue amlodipine, clonidine, lisinopril, metoprolol, chlorthalidone. Hydralazine as needed for SBP greater than 160. Continue to monitor. 4. Type 2 diabetes mellitus-continue home Amaryl, metformin regimen. Accu-Cheks before meals at bedtime with sliding scale insulin. 5. Hyperlipidemia- continue statin, lovaza. 6. Rheumatoid arthritis- continue remicaid. 7. Depression-continue home Cymbalta regimen. 8. BPH- continue proscar regimen. 9. GERD- continue PPI. DVT prophylaxis-heparin subcu This patient was seen by TERESE Basurto under the supervision of Dr. Sterling.
[2018-09-19 16:56] LABS: Bedside Glucose 194 mg/dL (70-110)
[2018-09-19] MEDS: BENZOCAINE/MENTHOL 1 LOZENGE 2 LOZENGE MUCOUS MEM ×2 (18:25→22:40)
[2018-09-19] MEDS: Zolpidem Tartrate 5 MG Tablet PO (22:23)
[2018-09-19] MEDS: Atorvastatin Calcium 20 MG Tablet PO (22:28)
[2018-09-19] MEDS: Loratadine 10 MG Tablet PO (22:28)
[2018-09-19] MEDS: Omega-3 Acid Ethyl Esters 1 GM Capsule 2 GM PO (22:29)
[2018-09-19 22:41] LABS: Bedside Glucose 249 mg/dL (70-110)
[2018-09-20] VITALS (32 sets, daily range): BP systolic 114–165; BP diastolic 77–144; PULSE 79–169; RESP 16–27; TEMP 36.4–36.8; O2SAT 89–97
[2018-09-20] MEDS: hydrALAZINE 20 MG/ML Vial 10 MG IV (04:46)
[2018-09-20] MEDS: 0.9% NaCl Peripheral Flush Adult/Peds IV ×2 (04:46→12:44)
[2018-09-20] MEDS: Heparin Injection (Vial) 5,000 UNIT/ML VIAL 5000 UNIT SC (06:34)
[2018-09-20] MEDS: Ipratropium Bromide 0.06% NASAL SPRAY 2 SPRAY NASAL ×3 (06:34→22:02)
[2018-09-20] MEDS: Ipratropium/Albuterol Sulfate 3 ML AMPUL.NEB INHALATION ×3 (06:50→19:59)
[2018-09-20 07:00] LABS: Bedside Glucose 233 mg/dL (70-110)
[2018-09-20] MEDS: Multivitamins,Ther W-Minerals Tablet 1 TABLET PO (07:40)
[2018-09-20] MEDS: sulfaSALAzine 500 MG Tablet PO ×3 (07:40→17:26)
[2018-09-20] MEDS: Calcium (Elemental) 500 MG Tablet PO (07:40)
[2018-09-20] MEDS: Insulin Lispro 100 UNIT/ML INSULN.PEN SC ×4 (07:40→22:02)
[2018-09-20] MEDS: Glimepiride 2 MG Tablet PO (07:40)
[2018-09-20] MEDS: Pantoprazole Sodium 20 MG Tablet PO ×2 (09:45→22:02)
[2018-09-20] MEDS: Lisinopril 40 MG Tablet PO (09:45)
[2018-09-20] MEDS: Gabapentin 600 MG Tablet PO ×2 (09:45→22:02)
[2018-09-20] MEDS: Finasteride 5 MG Tablet PO (09:45)
[2018-09-20] MEDS: amLODIPine 10 MG Tablet PO (09:45)
[2018-09-20] MEDS: Omega-3 Acid Ethyl Esters 1 GM Capsule PO (09:45)
[2018-09-20] MEDS: DULoxetine Hcl 60 MG Capsule PO (09:45)
[2018-09-20] MEDS: cloNIDine HCl 0.2 MG Tablet PO ×2 (09:45→22:02)
[2018-09-20] MEDS: Metoprolol Tartrate 50 MG Tablet PO ×2 (09:45→22:03)
[2018-09-20] MEDS: Chlorthalidone 50 MG Tablet PO (09:45)
[2018-09-20 12:06] LABS: Bedside Glucose 271 mg/dL (70-110)
--- NOTE | 2018-09-20 12:12 | CPS ---
pt no longer wants vest therapy, pt had back surgery and it is causing pain. He does excellent working on the Pep Therapy.
--- NOTE | 2018-09-20 12:30 | PCM.PROGNOTE ---
<Margie Hu - Last Filed: 09/20/18 12:43> Patient Problems: Active and Suspected Problems Acute respiratory insufficiency (Acute) Severe sepsis (Acute) Rhinovirus (Acute) Hypertensive urgency (Acute) Atrial fibrillation with RVR (Acute) Subjective: Patient seen and examined. Overall feels improved. Cough and shortness of breath improved. Denies fever, chills. Patient with new onset atrial fibrillation this morning. Asymptomatic. - Physical Exam General: Alert, Oriented x3, Cooperative HEENT: Atraumatic, PERRLA, EOMI, Normocephalic Neck: Supple, No JVD, Negative Carotid Bruits Lungs: Diminished, Wheezes Cardiovascular: No murmurs, Tachycardic, - - A.fib. Abdomen: Bowel Sounds Present, Soft, Non Tender, Non-Distended Extremities: No clubbing, No cyanosis, No edema, Capillary Refill Less than 3 Seconds Skin: No rashes, No breakdown Musculoskeletal: No Tenderness to Palpation of Joints or Extremities Neurological: Cranial nerves II-XII grossly intact, Neuro grossly intact Psych/Mental Status: Normal Affect, Appropriate Vital Signs Temp Pulse Resp BP Pulse Ox 97.5 F L 137 H 20 H 138/94 H 92 09/20/18 09:41 09/20/18 11:25 09/20/18 11:00 09/20/18 09:45 09/20/18 11:00 Oxygen Flow Rate (L/min) 2 Oxygen Delivery Method Room Air Weight: 210 lb 8.663 oz Body Mass Index (BMI) 33.0 Finger Stick Blood Glucose 151 Intake and Output for Last 24 Hours 09/18/18 09/19/18 09/20/18 23:59 23:59 23:59 Intake Total 2920 / 2920 1090 / 1090 940 / 940 Output Total 900 / 900 300 / 300 Balance 2019 1090 / 1090 640 / 640 Microbiology Past 72 Hours 09/17/18 20:00 Blood Culture - Preliminary Blood Culture (Wb) - Anticubital Left No growth in 48 hours. 09/17/18 21:20 Blood Culture - Preliminary Blood Culture (Wb) - Anticubital Right No growth in 48 hours. 09/18/18 00:40 Respiratory Panel (PCR) - Final Mucosa - Nasopharyngeal Rhinovirus POC Glucose 09/20/18 09/20/18 09/19/18 11:58 06:41 22:16 POC Glucose 271 H 233 H 249 H 09/19/18 16:36 POC Glucose 194 H Medical Necessity - Tobacco Use Smoking Status: Former smoker Assessment/Plan All Active Problems Acute respiratory insufficiency (Acute) Severe sepsis (Acute) Rhinovirus (Acute) Hypertensive urgency (Acute) Atrial fibrillation with RVR (Acute) Chest tightness (Resolved) Left wrist pain (Resolved) Syncopal episodes (Resolved) Ureteral calculus, right (Resolved) 1. Acute hypoxic respiratory insufficiency secondary to acute exacerbation of asthma due to acute rhinovirus, failed outpatient treatment with oral steroids and augmentin-chest x-ray on admission without acute process. Respiratory panel positive for rhinovirus. Levaquin discontinued. DC IV Solu-Medrol. Transition to oral prednisone. Tessalon perel TID PRN for cough. PRN Robitussin. Hycodan nightly for cough. PEP/IS. Continue supplement oxygen to maintain O2 sat above 90%. Walking pulse ox prior to DC. 2. Acute sepsis, present on admission, secondary to acute rhinovirus- Patient with tachycardia, tachypnea, leukocytosis and lactic acidosis on admission. Lactic acidosis possibly reactive due to acute respiratory insufficiency as well. Improved. 3. Hypertensive urgency-SBP >200 on admission. Improved. Continue amlodipine, clonidine, lisinopril, metoprolol, chlorthalidone. Hydralazine as needed for SBP greater than 160. Continue to monitor. 4. New onset atrial fibrillation- IV cardizem 10mg X1. Check TSH, mg. Obtain echo. 5. Type 2 diabetes mellitus-continue home Amaryl, metformin regimen. Accu-Cheks before meals at bedtime with sliding scale insulin. 6. Hyperlipidemia- continue statin, lovaza. 7. Rheumatoid arthritis- continue remicaid. 8. Depression-continue home Cymbalta regimen. 9. BPH- continue proscar regimen. 10. GERD- continue PPI. DVT prophylaxis-lovenox sc This patient was seen by TERESE Basurto under the supervision of Dr. Tilley. <Rico Tilley - Last Filed: 09/20/18 14:18> Subjective: Breathing well, but still wheezing. - Physical Exam General: Alert, Cooperative HEENT: Atraumatic, Normocephalic Oral: Moist Mucosa, No Gingival or Mucosal Lesions/ Ulcerations Lungs: Diminished, Wheezes Cardiovascular: No murmurs, Tachycardic, - Abdomen: Bowel Sounds Present, Soft, Non Tender, Non-Distended Extremities: No edema, No Calf Tenderness Skin: No rashes, No breakdown Musculoskeletal: No Tenderness to Palpation of Joints or Extremities Psych/Mental Status: Normal Affect, Appropriate Vital Signs Temp Pulse Resp BP Pulse Ox 36.4 C L 137 H 20 H 138/94 H 92 09/20/18 09:41 09/20/18 11:25 09/20/18 11:00 09/20/18 09:45 09/20/18 11:00 Oxygen Flow Rate (L/min) 2 Oxygen Delivery Method Room Air Weight: 95.5 kg Body Mass Index (BMI) 33.0 Finger Stick Blood Glucose 151 Intake and Output for Last 24 Hours 09/18/18 09/19/18 09/20/18 23:59 23:59 23:59 Intake Total 2920 / 2920 1090 / 1090 940 / 940 Output Total 900 / 900 300 / 300 Balance 2019 1090 / 1090 640 / 640 Microbiology Past 72 Hours 09/17/18 20:00 Blood Culture - Preliminary Blood Culture (Wb) - Anticubital Left No growth in 48 hours. 09/17/18 21:20 Blood Culture - Preliminary Blood Culture (Wb) - Anticubital Right No growth in 48 hours. 09/18/18 00:40 Respiratory Panel (PCR) - Final Mucosa - Nasopharyngeal Rhinovirus Laboratory Tests Past 24 Hrs 09/19/18 05:09 Magnesium Pending TSH Pending POC Glucose 09/20/18 09/20/18 09/19/18 11:58 06:41 22:16 POC Glucose 271 H 233 H 249 H 09/19/18 16:36 POC Glucose 194 H Assessment/Plan Patient seen and examined independently. Data reviewed. I agree with the above note by the nurse practitioner. 1. Acute hypoxic respiratory insufficiency Improving Secondary to acute rhinovirus bronchitis Continue with steroids Currently on room air 2. Severe sepsis Present on admission Patient met sepsis criteria on admission but also had lactic acidosis Improving Secondary to rhinovirus 3. Acute rhinovirus infection Resolving 4. Atrial fibrillation with RVR Patient will be on Cardizem bolus Metoprolol Check echo Cardiology consultation Start weight-based Lovenox Discussed with the patient's at bedside. Code Visit Inpatient E&M: 75756 Subs Hosp L2
--- NOTE | 2018-09-20 12:38 | ECHOD_ITS ---
Reason For Study: AFIB Procedure This was a 2D Doppler, Color Flow transthoracic echocardiogram. Exam performed portable in patient room. Left Ventricle Moderate concentric left ventricular hypertrophy. The estimated ejection fraction is 75 %. Unable to assess diastolic dysfunction due to arrhythmia. No regional wall motion abnormalities noted. Right Ventricle Mildly dilated right ventricle. Normal systolic function. Atria The left atrium is severely enlarged. The right atrium is mildly enlarged. Normal atrial septum. Mitral Valve Mild diffuse mitral valve thickening. Mild mitral annular calcification extending into the posterior leaflet. Trivial mitral valve insufficiency. Tricuspid Valve Normal tricuspid valve. Trivial tricuspid valve insufficiency. Right ventricular systolic pressure estimated to be 40 mmHg. Mild pulmonary hypertension. Aortic Valve Trisinus/trileaflet aortic valve. Mild diffuse aortic valve thickening. There is no aortic stenosis. Pulmonic Valve Normal pulmonic valve. Great Vessels Normal aortic root. Normal arch. Normal inferior vena cava. Inferior vena cava collapse with sniff. Pericardium/Pleural No pericardial effusion. MMode/2D Measurements & Calculations LVIDd: 4.5 cm IVSd: 1.7 cm LVOT diam: 2.0 cm LVIDs: 3.2 cm LVPWd: 1.6 cm LVOT area: 3.1 cm2 RVDd: 3.9 cm FS: 30.3 % Ao root diam: 3.6 cm LA dimension(2D): 4.9 cm Doppler Measurements & Calculations Ao V2 max: 115.5 cm/sec LV V1 max: 116.1 cm/sec PA V2 max: 122.6 cm/sec Ao max P.7 mmHg LV V1 max P.4 mmHg LU(V,D): 3.1 cm2 PI end-d debra: 175.6 cm/sec TR max debra: 250.3 cm/sec TR max P.1 mmHg Interpretation Summary The estimated ejection fraction is 75 %. Unable to assess diastolic dysfunction due to arrhythmia. The right atrium is mildly enlarged. The left atrium is severely enlarged. Trivial mitral valve insufficiency. Trivial tricuspid valve insufficiency. Right ventricular systolic pressure estimated to be 40 mmHg. Mild pulmonary hypertension. Compared to echo rerport dated 11/05/2016, LV function has remained the same, but pt now appears to be in atrial fibrillation. Ordering Physician: TERESE Basurto Referring Physician: SUMEET HARRY Performed By: Karen Pierre, RDCS, RVT
--- NOTE | 2018-09-20 12:43 | PN_ITS ---
<Margie Hu - Last Filed: 09/20/18 12:43> Patient Problems: Active and Suspected Problems Acute respiratory insufficiency (Acute) Severe sepsis (Acute) Rhinovirus (Acute) Hypertensive urgency (Acute) Atrial fibrillation with RVR (Acute) Subjective: Patient seen and examined. Overall feels improved. Cough and shortness of breath improved. Denies fever, chills. Patient with new onset atrial fibrillation this morning. Asymptomatic. - Physical Exam General: Alert, Oriented x3, Cooperative HEENT: Atraumatic, PERRLA, EOMI, Normocephalic Neck: Supple, No JVD, Negative Carotid Bruits Lungs: Diminished, Wheezes Cardiovascular: No murmurs, Tachycardic, - - A.fib. Abdomen: Bowel Sounds Present, Soft, Non Tender, Non-Distended Extremities: No clubbing, No cyanosis, No edema, Capillary Refill Less than 3 Seconds Skin: No rashes, No breakdown Musculoskeletal: No Tenderness to Palpation of Joints or Extremities Neurological: Cranial nerves II-XII grossly intact, Neuro grossly intact Psych/Mental Status: Normal Affect, Appropriate Vital Signs Temp Pulse Resp BP Pulse Ox 97.5 F L 137 H 20 H 138/94 H 92 09/20/18 09:41 09/20/18 11:25 09/20/18 11:00 09/20/18 09:45 09/20/18 11:00 Oxygen Flow Rate (L/min) 2 Oxygen Delivery Method Room Air Weight: 210 lb 8.663 oz Body Mass Index (BMI) 33.0 Finger Stick Blood Glucose 151 Intake and Output for Last 24 Hours 09/18/18 09/19/18 09/20/18 23:59 23:59 23:59 Intake Total 2920 / 2920 1090 / 1090 940 / 940 Output Total 900 / 900 300 / 300 Balance 2019 1090 / 1090 640 / 640 Microbiology Past 72 Hours 09/17/18 20:00 Blood Culture - Preliminary Blood Culture (Wb) - Anticubital Left No growth in 48 hours. 09/17/18 21:20 Blood Culture - Preliminary Blood Culture (Wb) - Anticubital Right No growth in 48 hours. 09/18/18 00:40 Respiratory Panel (PCR) - Final Mucosa - Nasopharyngeal Rhinovirus POC Glucose 09/20/18 09/20/18 09/19/18 11:58 06:41 22:16 POC Glucose 271 H 233 H 249 H 09/19/18 16:36 POC Glucose 194 H Medical Necessity - Tobacco Use Smoking Status: Former smoker Assessment/Plan All Active Problems Acute respiratory insufficiency (Acute) Severe sepsis (Acute) Rhinovirus (Acute) Hypertensive urgency (Acute) Atrial fibrillation with RVR (Acute) Chest tightness (Resolved) Left wrist pain (Resolved) Syncopal episodes (Resolved) Ureteral calculus, right (Resolved) 1. Acute hypoxic respiratory insufficiency secondary to acute exacerbation of asthma due to acute rhinovirus, failed outpatient treatment with oral steroids and augmentin-chest x-ray on admission without acute process. Respiratory panel positive for rhinovirus. Levaquin discontinued. DC IV Solu-Medrol. Transition to oral prednisone. Tessalon perel TID PRN for cough. PRN Robitussin. Hycodan nightly for cough. PEP/IS. Continue supplement oxygen to maintain O2 sat above 90%. Walking pulse ox prior to DC. 2. Acute sepsis, present on admission, secondary to acute rhinovirus- Patient with tachycardia, tachypnea, leukocytosis and lactic acidosis on admission. Lactic acidosis possibly reactive due to acute respiratory insufficiency as well. Improved. 3. Hypertensive urgency-SBP >200 on admission. Improved. Continue amlodipine, clonidine, lisinopril, metoprolol, chlorthalidone. Hydralazine as needed for SBP greater than 160. Continue to monitor. 4. New onset atrial fibrillation- IV cardizem 10mg X1. Check TSH, mg. Obtain echo. 5. Type 2 diabetes mellitus-continue home Amaryl, metformin regimen. Accu-Cheks before meals at bedtime with sliding scale insulin. 6. Hyperlipidemia- continue statin, lovaza. 7. Rheumatoid arthritis- continue remicaid. 8. Depression-continue home Cymbalta regimen. 9. BPH- continue proscar regimen. 10. GERD- continue PPI. DVT prophylaxis-lovenox sc This patient was seen by TERESE Basurto under the supervision of Dr. Tilley. <Rico Tilley - Last Filed: 09/20/18 14:18> Subjective: Breathing well, but still wheezing. - Physical Exam General: Alert, Cooperative HEENT: Atraumatic, Normocephalic Oral: Moist Mucosa, No Gingival or Mucosal Lesions/ Ulcerations Lungs: Diminished, Wheezes Cardiovascular: No murmurs, Tachycardic, - Abdomen: Bowel Sounds Present, Soft, Non Tender, Non-Distended Extremities: No edema, No Calf Tenderness Skin: No rashes, No breakdown Musculoskeletal: No Tenderness to Palpation of Joints or Extremities Psych/Mental Status: Normal Affect, Appropriate Vital Signs Temp Pulse Resp BP Pulse Ox 36.4 C L 137 H 20 H 138/94 H 92 09/20/18 09:41 09/20/18 11:25 09/20/18 11:00 09/20/18 09:45 09/20/18 11:00 Oxygen Flow Rate (L/min) 2 Oxygen Delivery Method Room Air Weight: 95.5 kg Body Mass Index (BMI) 33.0 Finger Stick Blood Glucose 151 Intake and Output for Last 24 Hours 09/18/18 09/19/18 09/20/18 23:59 23:59 23:59 Intake Total 2920 / 2920 1090 / 1090 940 / 940 Output Total 900 / 900 300 / 300 Balance 2019 1090 / 1090 640 / 640 Microbiology Past 72 Hours 09/17/18 20:00 Blood Culture - Preliminary Blood Culture (Wb) - Anticubital Left No growth in 48 hours. 09/17/18 21:20 Blood Culture - Preliminary Blood Culture (Wb) - Anticubital Right No growth in 48 hours. 09/18/18 00:40 Respiratory Panel (PCR) - Final Mucosa - Nasopharyngeal Rhinovirus Laboratory Tests Past 24 Hrs 09/19/18 05:09 Magnesium Pending TSH Pending POC Glucose 09/20/18 09/20/18 09/19/18 11:58 06:41 22:16 POC Glucose 271 H 233 H 249 H 09/19/18 16:36 POC Glucose 194 H Assessment/Plan Patient seen and examined independently. Data reviewed. I agree with the above note by the nurse practitioner. 1. Acute hypoxic respiratory insufficiency * Improving * Secondary to acute rhinovirus bronchitis * Continue with steroids * Currently on room air 2. Severe sepsis * Present on admission * Patient met sepsis criteria on admission but also had lactic acidosis * Improving * Secondary to rhinovirus 3. Acute rhinovirus infection * Resolving 4. Atrial fibrillation with RVR * Patient will be on Cardizem bolus * Metoprolol * Check echo * Cardiology consultation * Start weight-based Lovenox Discussed with the patient's at bedside. Code Visit Inpatient E&M: 09062 Subs Hosp L2
[2018-09-20] MEDS: dilTIAZem 25 MG/5 ML Vial 10 MG IV BOLUS (12:44)
[2018-09-20] MEDS: BENZOCAINE/MENTHOL 1 LOZENGE 2 LOZENGE MUCOUS MEM (12:44)
[2018-09-20 14:28] LABS: Magnesium 1.6 mg/dL (1.6-2.6); Thyroid Stim Hormone (TSH) 0.22 uIU/mL (0.358-3.74)
--- NOTE | 2018-09-20 14:36 | PCM.CONS.C ---
Problem List (1) Atrial fibrillation with RVR Status: Acute (2) Hyperlipidemia Status: Chronic (3) Benign essential HTN Status: Chronic Reason for Consult Date of Consultation: 09/20/18 Reason for Consultation: Atrial fibrillation, hypertension, History of Present Illness: The patient is a 73 year old M, with a history of asthma, diabetes, hypertension, formally saw Dr. Lino many years ago, no known coronary artery disease or history of atrial fibrillation. Patient was admitted with wheezing, shortness of breath, fevers, chills and productive cough. His symptoms first started about 2-3 weeks ago after visiting relatives in [place] who also apparently had an upper respiratory tract infection. Patient has had struggles with shortness of breath, wheezing, and was prescribed Augmentin and prednisone by his PCP. When this did not improve, he sought medical attention at [facility] ER on 09/18/18. Chest x-ray in the emergency room showed no overt infiltrates. Head and neck CTA after that demonstrated bronchial mucus, as well as possible sinusitis. His initial EKG showed normal sinus rhythm with possible old anterior wall myocardial infarction and old inferior wall myocardial infarction. Patient's rhythm devolved into atrial fibrillation with rapid ventricular response earlier today. Currently the patient is laying down flat, has audible expiratory wheezing, and audible rhonchi. Preliminary echocardiogram shows intact LV function, left atrial enlargement. Final results pending. On further history the patient is never had a catheterization, and cannot recall the last time he had a stress test. Prior to his illness, he denies any exertional chest pain, angina, shortness of breath or dyspnea on exertion. [] Past Medical History Allergies/Adverse Reactions: Allergies aspirin Allergy (Verified 09/17/18 20:04) Swelling morphine Adverse Reaction (Verified 09/17/18 20:04) UNABLE TO URINATE Home Medications: Ambulatory Orders Medication Instructions Recorded Amlodipine/Benazepril [Lotrel 1 capsule PO DAILY 07/20/13 10-40 MG Capsule] Gabapentin [Neurontin] 600 mg PO BID 07/20/13 Finasteride [Proscar] 5 mg PO DAILY 03/14/15 Chlorthalidone [Hygroton] 50 mg PO DAILY 12/24/16 Infliximab-DYYB [Inflectra] 100 mg IV .COMPLEX 02/18/17 Esomeprazole Magnesium [Nexium 22.3 mg PO DAILY 04/15/17 24Hr] Loratadine [Claritin] 10 mg PO QHS 04/15/17 Albuterol Sulfate [Ventolin Hfa] 2 puff INHALATION BID 01/22/18 Clonidine HCl [Catapres] 0.2 mg PO BID 01/22/18 Glimepiride [Amaryl] 2 mg PO DAILY 01/22/18 Metoprolol Tartrate [Lopressor 50 mg PO BID 01/22/18 (beta andrey)] Amoxicillin/Potassium Clav 1 tab PO BID 09/17/18 [Amox-Clav 875-125 mg Tablet] Balsalazide Disodium 2,250 mg PO BID 09/17/18 Calcium (Elemental) [Os-Abiel 500] 500 mg PO DAILY@0800 09/17/18 Duloxetine HCl 60 mg PO DAILY 09/17/18 Ipratropium/Albuterol Sulfate 3 ml INHALATION Q4H PRN PRN 09/17/18 [Iprat-Albut 0.5-3(2.5) mg/3 ml] Metformin HCl 1,000 mg PO BID 09/17/18 Multivit-Min/FA/Lycopen/Lutein 1 each PO DAILY 09/17/18 [Centrum Silver Men Tablet] [place]-3 Fatty Acids/Fish Oil 1,000 mg PO DAILY 09/17/18 [[place] 3 1,000 mg Softgel] [place]-3 Fatty Acids/Fish Oil 2,000 mg PO QHS 09/17/18 [[place] 3 1,000 mg Softgel] Prednisone See Taper PO DAILY 09/17/18 Simvastatin 40 mg PO QHS 09/17/18 Past Medical History (Chronic Problems): Chronic Problems DM2 (diabetes mellitus, type 2) (Chronic) Hyperlipidemia (Chronic) Inflammatory bowel disease (Chronic) Benign essential HTN (Chronic) Rheumatoid aortitis (Chronic) Surgical History: no surgical history, noncontributory, - - Fusion of the cervical spine, lumbar spine surgery, bilateral knee replacements, partial colon resection due to diverticulitis Psychiatric History: No pertinent psych hx - *Family History Maternal History Items: Heart Disease Paternal History Items: COPD, Heart Disease Smoking Status: Former smoker Review of Systems - Review of Systems General: Reports: Fever, Chills. Denies: Fatigue, Night Sweats Cardiovascular: Reports: Shortness of Breath at Rest. Denies: Chest Discomfort, Shortness of Breath, Orthopnea, PND, Peripheral Edema, Palpitations, Lightheadedness, Dizziness, Near Syncope, Syncope Respiratory: Reports: Cough, Sputum Production, Shortness of Breath, Wheezing. Denies: Hemoptysis Gastrointestinal: Denies: Hematemesis, Hematochezia, Melena Genitourinary: Denies: Dysuria, Hematuria Skin: Denies: Rash Subjectve: Patient laying on his sides, no acute distress, obtaining echo at this time, positive productive cough, faint audible late expiratory wheezing. Objective: Vital Signs Temp Pulse Resp BP Pulse Ox 97.5 F L 137 H 20 H 138/94 H 92 09/20/18 09:41 09/20/18 11:25 09/20/18 11:00 09/20/18 09:45 09/20/18 11:00 Oxygen Flow Rate (L/min) 2 Oxygen Delivery Method Room Air Weight: 210 lb 8.663 oz Body Mass Index (BMI) 33.0 Finger Stick Blood Glucose 151 Intake and Output for Last 24 Hours 09/18/18 09/19/18 09/20/18 23:59 23:59 23:59 Intake Total 2920 / 2920 1090 / 1090 940 / 940 Output Total 900 / 900 300 / 300 Balance 2019 1090 / 1090 640 / 640 General: Awake, Alert, Oriented x 3 HEENT: PERRL, EOMI, Sclera Non Icteric Neck: Supple, Good ROM, No Lymph Node Enlargement Lungs: Rales - Aleksander Bases, Expiratory Wheezes-Ale[place]ander Cardiovascular: Irregular Rhythm, Normal S1, Normal S2, No Murmurs, No Rubs, No Gallops Vascular: No Carotid Bruits, Normal Femoral Pulses, Normal Radial Pulses, Normal Dorsalis Pedal Pulse, Normal Posterior Tibial Pulses Abdomen: Bowel Sounds Present, Soft, Non Tender, No HSM, No Organomegaly Extremities: No Cyanosis, No Clubbing, No edema Neurological: No Focal Motor or Sensory Deficit 09/19/18 05:09: Magnesium 1.6 Rhythm: EKG: Atrial fibrillation with rapid ventricular response, possible old anterior wall myocardial infarction and old inferior wall myocardial infarction. ECHO: Pending Stress Test: Cardiac Cath: PCI: CT Surgery: Holter monitor: EPS: PPM: CXR: Chest CT Scan: Assessment/Plan 1. Atrial fibrillation: Patient presents with what appears to be bronchitis possibly viral in origin, with productive cough, sputum, superimposed upon asthma had a baseline. Patient has an elevated white blood cell count, and is being treated with antibiotics and prednisone therapy. Patient developed atrial fibrillation from sinus rhythm on this admission, with rapid ventricular response. Recommended patient be ruled out for myocardial infarction with troponin series x3, avoid beta-andrey therapy given his asthma and respiratory situation, and initiate Cardizem CD 120 mill grams p.o. daily and titrate up from there. His echocardiogram preliminarily shows normal LV function with dilated left atrium. Final results are pending. Assuming his troponins are negative x3 would recommend he undergo a debridement echocardiogram on Saturday morning to evaluate for possible source of ischemia. If his troponins are abnormal, I would recommend skipping his stress test and proceeding with left heart catheterization once his pulmonary situation has improved. In addition I recommend Lovenox 1 mg/kg subcu twice daily until and if the patient converts on his own. Would not recommend amiodarone at this time unless we are unable to control the patient's heart rate. The patient's heart rate may be elevated due to his acute illness. If the patient does not spontaneously convert to normal sinus rhythm, he will require Eliquis therapy for period of 3 weeks followed by elective DC cardioversion. TSH is somewhat on the low side. 2. Hyperlipidemia: Recommend obtaining a fasting lipid profile. 3. Asthma: Patient has baseline asthma, which is not responding to prednisone p.o. or antibiotic therapy. Would consider recommending pulmonology consultation for management of his bronchitis acutely and asthma chronically going forward. 4. Thank you very much for the opportunity to participate in the cardiac care of your patient. Consultation time took place between 215 and 2:48 PM. Code Visit Inpatient E&M: 69408 Init Hosp L2
[2018-09-20 15:49] LABS: Cholesterol 177 mg/dL (200); High Density Lipoprotein 44 mg/dL; Triglycerides 210 mg/dL; Very Low Density Lipoprotein 42 mg/dL (5-40)
[2018-09-20 16:51] LABS: Bedside Glucose 175 mg/dL (70-110)
[2018-09-20] MEDS: Enoxaparin 100 MG/ML Syringe 95 MG SC (17:26)
[2018-09-20] MEDS: Loratadine 10 MG Tablet PO (22:02)
[2018-09-20] MEDS: Atorvastatin Calcium 20 MG Tablet PO (22:02)
[2018-09-20] MEDS: Omega-3 Acid Ethyl Esters 1 GM Capsule 2 GM PO (22:02)
[2018-09-20] MEDS: Zolpidem Tartrate 5 MG Tablet PO (22:02)
[2018-09-20 22:10] LABS: Bedside Glucose 200 mg/dL (70-110)
[2018-09-21] VITALS (34 sets, daily range): BP systolic 98–164; BP diastolic 66–137; PULSE 99–175; RESP 13–24; TEMP 36.3–37; O2SAT 89–97
[2018-09-21] MEDS: Acetaminophen 325 MG Tablet 650 MG PO (00:20)
[2018-09-21] MEDS: Ipratropium Bromide 0.06% NASAL SPRAY 2 SPRAY NASAL ×3 (05:53→21:26)
[2018-09-21] MEDS: Enoxaparin 100 MG/ML Syringe 95 MG SC ×2 (05:53→17:01)
[2018-09-21] MEDS: Ipratropium/Albuterol Sulfate 3 ML AMPUL.NEB INHALATION ×3 (06:32→14:42)
[2018-09-21 07:01] LABS: Absolute Lymphocyte Count 3.26 X10^3/ul (0.83-4.51); Absolute Neutrophil Count 8.7 X10^3/uL (2.0-7.7); Basophil# 0.01 X10^3/uL; Basophil% 0.1 % (0-1); Eosinophil# 0.02 X10^3/uL; Eosinophils% 0.2 % (0-5); Hematocrit 42.2 % (40-54); Hemoglobin 13.7 g/dl (13.0-16.5); Lymphocyte # 3.26 X10^3/ul (4.0); Lymphocyte % 25.1 % (19-41); Mean Corp Hgb Conc 32.5 g/gl (32-36); Mean Corpuscular Hgb 29.1 pg (27.0-32.0); Mean Corpuscular Volume 89.8 fL (80-94); Mean Platelet Vol. 11.5 fl (6.2-12.0); Monocyte# 0.94 X10^3/uL; Monocyte% 7.2 % (0-10); Neutrophil # 8.72 X10^3/uL (2.7-7.7); Neutrophil % 67.2 % (47-70); Platelet Count 246 K/mm3 (150-450); RBC Distribution Width CV 15.4 % (11.6-14.6)
[2018-09-21 07:12] LABS: POSITIVE COUNT NO; POSITIVE DIFFERENTIAL NO; POSITIVE MORPHOLOGY NO
[2018-09-21 07:26] LABS: Anion Gap 9 (5-15); BUN 31 mg/dL (7-18); BUN/Creat Ratio 23.3 RATIO (10-20); Calcium,Total 8.6 mg/dL (8.5-10.1); Chloride 104 mmol/L (98-107); Creatinine, Serum 1.33 mg/dL (0.70-1.30); EST Glomerular Filtration Rate 56 mL/min (>60); Est Glom Filt Rate - Afr Amer 68 mL/min (>60); Estimated Creatinine Clearance 45.56 ml/min; Glucose 164 mg/dL (74-106); Sodium Level 139 mmol/L (136-145)
[2018-09-21] MEDS: Chlorthalidone 50 MG Tablet PO (09:01)
[2018-09-21] MEDS: cloNIDine HCl 0.2 MG Tablet PO ×2 (09:01→21:27)
[2018-09-21] MEDS: DULoxetine Hcl 60 MG Capsule PO (09:01)
[2018-09-21] MEDS: Omega-3 Acid Ethyl Esters 1 GM Capsule PO (09:01)
[2018-09-21] MEDS: Glimepiride 2 MG Tablet PO (09:01)
[2018-09-21] MEDS: Lisinopril 40 MG Tablet PO (09:01)
[2018-09-21] MEDS: sulfaSALAzine 500 MG Tablet PO ×3 (09:02→17:01)
[2018-09-21] MEDS: Multivitamins,Ther W-Minerals Tablet 1 TABLET PO (09:02)
[2018-09-21] MEDS: Gabapentin 600 MG Tablet PO ×2 (09:02→21:27)
[2018-09-21] MEDS: amLODIPine 10 MG Tablet PO (09:02)
[2018-09-21] MEDS: predniSONE 10 MG Tablet 30 MG PO (09:02)
[2018-09-21] MEDS: Calcium (Elemental) 500 MG Tablet PO (09:02)
[2018-09-21] MEDS: Pantoprazole Sodium 20 MG Tablet PO ×2 (09:08→21:27)
[2018-09-21] MEDS: Finasteride 5 MG Tablet PO (09:09)
--- NOTE | 2018-09-21 09:21 | PCM.PN.CARD ---
Subjectve: Patient doing slightly better this morning, still with audible gurgling heard from mucus in his bronchial tree, still with atrial fibrillation with rapid ventricular response and occasional PVCs, ventricular couplets last night. Amiodarone IV drip started last evening for heart rate control. Echocardiogram showed hyperdynamic LV function with an EF of 75% and an RVSP of 40 mmHg. He denies any shortness of breath. White count is trending downwards. Objective: Vital Signs Temp Pulse Resp BP Pulse Ox 97.6 F L 99 14 98/66 93 09/21/18 04:00 09/21/18 08:00 09/21/18 08:00 09/21/18 08:00 09/21/18 08:05 Oxygen Flow Rate (L/min) 3 Oxygen Delivery Method Nasal Cannula Weight: 210 lb 8.663 oz Body Mass Index (BMI) 33.0 Finger Stick Blood Glucose 151 Intake and Output for Last 24 Hours 09/19/18 09/20/18 09/21/18 23:59 23:59 23:59 Intake Total 1090 / 1090 1240 / 1240 1100.9 / 1100.9 Output Total 300 / 300 950 / 950 Balance 1090 / 1090 940 / 940 150.9 / 150.9 General: Awake, Alert, Oriented x 3 HEENT: PERRL, EOMI, Sclera Non Icteric Neck: Supple, Good ROM, No Lymph Node Enlargement Lungs: Rales - [place]ander Bases, Rhonchi Cardiovascular: Irregular Rhythm, Normal S1, Normal S2, No Murmurs, No Rubs, No Gallops Vascular: No Carotid Bruits, Normal Femoral Pulses, Normal Radial Pulses, Normal Dorsalis Pedal Pulse, Normal Posterior Tibial Pulses Abdomen: Bowel Sounds Present, Soft, Non Tender, No HSM, No Organomegaly Extremities: No Cyanosis, No Clubbing, No edema Neurological: No Focal Motor or Sensory Deficit 09/19/18 05:09: Magnesium 1.6 09/20/18 15:16: Troponin I < 0.015, Triglycerides 210 H, Cholesterol 177, LDL Cholesterol 91, VLDL Cholesterol 42 H, HDL Cholesterol 44 09/21/18 05:19: WBC 13.0 H, RBC 4.70, Hgb 13.7, Hct 42.2, MCV 89.8, MCH 29.1, MCHC 32.5, RDW 15.4 H, RDW Differential 50.0 H, Plt Count 246, MPV 11.5, Immature Gran % (Auto) 0.200, Neut % (Auto) 67.2, Lymph % (Auto) 25.1, [place] % (Auto) 7.2, Eos % (Auto) 0.2, Baso % (Auto) 0.1, Absolute Neuts (auto) 8.7 H, Total Counted Not Reportable 09/21/18 05:19: Sodium 139, Potassium 3.0 L, Chloride 104, Carbon Dioxide 26.0, Anion Gap 9, BUN 31 H, Creatinine 1.33 H, Est GFR (MDRD) Af Amer 68, Est GFR (MDRD) Non-Af 56 L, BUN/Creatinine Ratio 23.3 H, Glucose 164 H, Calcium 8.6 09/21/18 05:19: Troponin I 0.016 Rhythm: EKG: ECHO: Stress Test: Cardiac Cath: PCI: CT Surgery: Holter monitor: EPS: PPM: CXR: Chest CT Scan: Medical Necessity - Tobacco Use Smoking Status: Former smoker Assessment/Plan 1. Atrial fibrillation: Patient presents with what appears to be bronchitis possibly viral in origin, with productive cough, sputum, superimposed upon asthma is a previous baseline. Patient has an elevated white blood cell count, and is being treated with antibiotics and prednisone therapy, as well as antivirals for positive flu. Patient developed atrial fibrillation from sinus rhythm on this admission, with rapid ventricular response. His troponins are negative x3, and his LV function is hyperdynamic with an EF around 75%. At this point I would recommend IV fluid resuscitation to improve his systolic blood pressure, and more likely decrease his heart rate as well. Would recommend considering avoiding beta-andrey therapy given his asthma and respiratory situation, and initiate Cardizem CD 120 mill grams p.o. daily and titrate up from there. Would hold off on dobutamine echocardiogram until the patient has recovered from his pulmonary issues. In addition I recommend Lovenox 1 mg/kg subcu twice daily until and if the patient converts on his own. Patient's heart rate was uncontrolled last evening superimposed upon hypotension, so IV amiodarone drip was started per protocol with improvement of his heart rate but not below 100 bpm. Recommend IV fluids to assist with this. His pulmonary evaluation shows gurgling most likely secondary to copious amounts of mucus. Would recommend pulmonary toilet, and Mucinex therapy and consider antibiotic therapy for possible superimposed bacterial infection on his flulike illness. If the patient does not spontaneously convert to normal sinus rhythm, he will require Eliquis therapy for period of 3 weeks followed by elective DC cardioversion. TSH is somewhat on the low side. 2. Hyperlipidemia: LDL is 91 HDL is 44. 3. Asthma: Patient has baseline asthma, which is not responding to prednisone p.o. or antibiotic therapy. Would consider recommending pulmonology consultation for management of his bronchitis acutely and asthma chronically going forward. 4. Thank you very much for the opportunity to participate in the cardiac care of your patient. Code Visit Inpatient E&M: 98808 Subs Hosp L2
--- NOTE | 2018-09-21 10:05 | PCM.PROGNOTE ---
<Margie Hu - Last Filed: 09/21/18 10:19> Patient Problems: Active and Suspected Problems Atrial fibrillation with RVR (Acute) Rhinovirus (Acute) Severe sepsis (Acute) Subjective: Patient seen and examined. Drowsy this morning. Complains of restlessness overnight and states he didn't sleep well. Cough improved. Denies other complaints. Remains on amio gtt. - Physical Exam General: No apparent distress, - - Drowsy HEENT: Atraumatic, PERRLA, EOMI, Normocephalic Oral: Moist Mucosa Neck: Supple, No JVD, Negative Carotid Bruits Lungs: Diminished, Wheezes Cardiovascular: - - A.fib, intermittent tachycardia. Abdomen: Bowel Sounds Present, Soft, Non Tender, Non-Distended Extremities: No clubbing, No cyanosis, No edema, Capillary Refill Less than 3 Seconds Skin: No rashes, No breakdown Musculoskeletal: No Tenderness to Palpation of Joints or Extremities Neurological: Cranial nerves II-XII grossly intact, Neuro grossly intact Psych/Mental Status: Normal Affect, Appropriate Vital Signs Temp Pulse Resp BP Pulse Ox 97.6 F L 99 14 98/66 93 09/21/18 04:00 09/21/18 08:00 09/21/18 08:00 09/21/18 08:00 09/21/18 08:05 Oxygen Flow Rate (L/min) 3 Oxygen Delivery Method Nasal Cannula Weight: 210 lb 8.663 oz Body Mass Index (BMI) 33.0 Finger Stick Blood Glucose 151 Intake and Output for Last 24 Hours 09/19/18 09/20/18 09/21/18 23:59 23:59 23:59 Intake Total 1090 / 1090 1240 / 1240 1100.9 / 1100.9 Output Total 300 / 300 950 / 950 Balance 1090 / 1090 940 / 940 150.9 / 150.9 Microbiology Past 72 Hours 09/17/18 20:00 Blood Culture - Preliminary Blood Culture (Wb) - Anticubital Left No growth in 48 hours. 09/17/18 21:20 Blood Culture - Preliminary Blood Culture (Wb) - Anticubital Right No growth in 48 hours. 09/18/18 00:40 Respiratory Panel (PCR) - Final Mucosa - Nasopharyngeal Rhinovirus Laboratory Tests Past 24 Hrs 09/19/18 09/20/18 09/21/18 05:09 15:16 05:19 WBC 13.0 H RBC 4.70 Hgb 13.7 Hct 42.2 MCV 89.8 MCH 29.1 MCHC 32.5 RDW 15.4 H RDW Differential 50.0 H Plt Count 246 MPV 11.5 Immature Gran % (Auto) 0.200 Neut % (Auto) 67.2 Lymph % (Auto) 25.1 [place] % (Auto) 7.2 Eos % (Auto) 0.2 Baso % (Auto) 0.1 Absolute Neuts (auto) 8.7 H Absolute Lymphs (auto) 3.26 Total Counted Not Reportable Sodium Potassium Chloride Carbon Dioxide Anion Gap BUN Creatinine Estim Creat Clear Calc Est GFR (MDRD) Af Amer Est GFR (MDRD) Non-Af BUN/Creatinine Ratio Glucose Calcium Magnesium 1.6 Troponin I < 0.015 Triglycerides 210 H Cholesterol 177 LDL Cholesterol 91 VLDL Cholesterol 42 H HDL Cholesterol 44 TSH 0.22 L 09/21/18 09/21/18 05:19 05:19 WBC RBC Hgb Hct MCV MCH MCHC RDW RDW Differential Plt Count MPV Immature Gran % (Auto) Neut % (Auto) Lymph % (Auto) [place] % (Auto) Eos % (Auto) Baso % (Auto) Absolute Neuts (auto) Absolute Lymphs (auto) Total Counted Sodium 139 Potassium 3.0 L Chloride 104 Carbon Dioxide 26.0 Anion Gap 9 BUN 31 H Creatinine 1.33 H Estim Creat Clear Calc 45.56 Est GFR (MDRD) Af Amer 68 Est GFR (MDRD) Non-Af 56 L BUN/Creatinine Ratio 23.3 H Glucose 164 H Calcium 8.6 Magnesium Troponin I 0.016 Triglycerides Cholesterol LDL Cholesterol VLDL Cholesterol HDL Cholesterol TSH POC Glucose 09/20/18 09/20/18 09/20/18 21:55 16:46 11:58 POC Glucose 200 H 175 H 271 H Medical Necessity - Tobacco Use Smoking Status: Former smoker Assessment/Plan All Active Problems Atrial fibrillation with RVR (Acute) Hypertensive urgency (Acute) Rhinovirus (Acute) Severe sepsis (Acute) Acute respiratory insufficiency (Acute) Chest tightness (Resolved) Left wrist pain (Resolved) Syncopal episodes (Resolved) Ureteral calculus, right (Resolved) 1. Acute hypoxic respiratory insufficiency secondary to acute exacerbation of asthma due to acute rhinovirus, failed outpatient treatment with oral steroids and augmentin-chest x-ray on admission without acute process. Respiratory panel positive for rhinovirus. Levaquin discontinued. DC IV Solu-Medrol. Transition to oral prednisone. Tessalon perel TID PRN for cough. PRN Robitussin. Hycodan nightly for cough. PEP/IS. Continue supplement oxygen to maintain O2 sat above 90%. Walking pulse ox prior to DC. Respiratory status improved. 2. Acute sepsis, present on admission, secondary to acute rhinovirus- Patient with tachycardia, tachypnea, leukocytosis and lactic acidosis on admission. Lactic acidosis possibly reactive due to acute respiratory insufficiency as well. Improved. 3. Hypertensive urgency-SBP >200 on admission. Improved. Continue amlodipine, clonidine, lisinopril, metoprolol, chlorthalidone. Hydralazine as needed for SBP greater than 160. Continue to monitor. 4. New onset atrial fibrillation-echocardiogram shows an EF of 75%, RVSP estimated to be 40 mmHg. Left atrium severely enlarged. Cardiology following. On amiodarone drip. Therapeutic Lovenox. If patient does not convert to sinus rhythm, he will require Eliquis at discharge for 3 weeks with outpatient cardioversion. 5. Type 2 diabetes mellitus-continue home Amaryl, metformin regimen. Accu-Cheks before meals at bedtime with sliding scale insulin. 6. Hyperlipidemia- continue statin, lovaza. 7. Rheumatoid arthritis- continue remicaid. 8. Depression-continue home Cymbalta regimen. 9. BPH- continue proscar regimen. 10. GERD- continue PPI. DVT prophylaxis-lovenox sc This patient was seen by TERESE Basurto under the supervision of Dr. Tilley. <Rico Tilley - Last Filed: 09/21/18 14:53> Subjective: Feels weak and short of breath. - Physical Exam General: No apparent distress, - HEENT: Atraumatic, PERRLA, EOMI, Normocephalic, - - bilateral maxillary sinus tenderness. Oral: Moist Mucosa Lungs: Diminished, Wheezes - upper respiratory. Cardiovascular: - Abdomen: Bowel Sounds Present, Soft, Non Tender, Non-Distended Extremities: No edema, No Calf Tenderness Skin: No rashes, No breakdown Psych/Mental Status: Normal Affect, Appropriate Vital Signs Temp Pulse Resp BP Pulse Ox 36.5 C L 120 H 22 H 126/79 H 94 12/23/18 13:00 09/21/18 14:42 09/21/18 14:42 09/21/18 13:00 09/21/18 13:00 Oxygen Flow Rate (L/min) 4 Oxygen Delivery Method Nasal Cannula Weight: 95.5 kg Body Mass Index (BMI) 33.0 Finger Stick Blood Glucose 151 Intake and Output for Last 24 Hours 09/19/18 09/20/18 09/21/18 23:59 23:59 23:59 Intake Total 1090 / 1090 1240 / 1240 1770.9 / 1770.9 Output Total 300 / 300 1300 / 1300 Balance 1090 / 1090 940 / 940 470.9 / 470.9 Microbiology Past 72 Hours 09/17/18 20:00 Blood Culture - Preliminary Blood Culture (Wb) - Anticubital Left No growth in 48 hours. 09/17/18 21:20 Blood Culture - Preliminary Blood Culture (Wb) - Anticubital Right No growth in 48 hours. 09/18/18 00:40 Respiratory Panel (PCR) - Final Mucosa - Nasopharyngeal Rhinovirus Laboratory Tests Past 24 Hrs 09/20/18 09/21/18 09/21/18 15:16 05:19 05:19 WBC 13.0 H RBC 4.70 Hgb 13.7 Hct 42.2 MCV 89.8 MCH 29.1 MCHC 32.5 RDW 15.4 H RDW Differential 50.0 H Plt Count 246 MPV 11.5 Immature Gran % (Auto) 0.200 Neut % (Auto) 67.2 Lymph % (Auto) 25.1 [place] % (Auto) 7.2 Eos % (Auto) 0.2 Baso % (Auto) 0.1 Absolute Neuts (auto) 8.7 H Absolute Lymphs (auto) 3.26 Total Counted Not Reportable Sodium 139 Potassium 3.0 L Chloride 104 Carbon Dioxide 26.0 Anion Gap 9 BUN 31 H Creatinine 1.33 H Estim Creat Clear Calc 45.56 Est GFR (MDRD) Af Amer 68 Est GFR (MDRD) Non-Af 56 L BUN/Creatinine Ratio 23.3 H Glucose 164 H Calcium 8.6 Troponin I < 0.015 Triglycerides 210 H Cholesterol 177 LDL Cholesterol 91 VLDL Cholesterol 42 H HDL Cholesterol 44 Free T4 Free T3 pg/dL 09/21/18 09/21/18 09/21/18 05:19 05:19 11:15 WBC RBC Hgb Hct MCV MCH MCHC RDW RDW Differential Plt Count MPV Immature Gran % (Auto) Neut % (Auto) Lymph % (Auto) [place] % (Auto) Eos % (Auto) Baso % (Auto) Absolute Neuts (auto) Absolute Lymphs (auto) Total Counted Sodium Potassium Chloride Carbon Dioxide Anion Gap BUN Creatinine Estim Creat Clear Calc Est GFR (MDRD) Af Amer Est GFR (MDRD) Non-Af BUN/Creatinine Ratio Glucose Calcium Troponin I 0.016 0.020 Triglycerides Cholesterol LDL Cholesterol VLDL Cholesterol HDL Cholesterol Free T4 0.96 Free T3 pg/dL 2.4 09/21/18 13:58 WBC RBC Hgb Hct MCV MCH MCHC RDW RDW Differential Plt Count MPV Immature Gran % (Auto) Neut % (Auto) Lymph % (Auto) [place] % (Auto) Eos % (Auto) Baso % (Auto) Absolute Neuts (auto) Absolute Lymphs (auto) Total Counted Sodium Potassium Chloride Carbon Dioxide Anion Gap BUN Creatinine Estim Creat Clear Calc Est GFR (MDRD) Af Amer Est GFR (MDRD) Non-Af BUN/Creatinine Ratio Glucose Calcium Troponin I < 0.015 Triglycerides Cholesterol LDL Cholesterol VLDL Cholesterol HDL Cholesterol Free T4 Free T3 pg/dL POC Glucose 09/21/18 09/21/18 09/20/18 12:02 06:51 21:55 POC Glucose 189 H 170 H 200 H 09/20/18 16:46 POC Glucose 175 H Assessment/Plan Patient seen and examined independently. Data reviewed. I agree with the above note by the nurse practitioner. 1. Acute hypoxic respiratory insufficiency Did drop down to 89% Secondary to acute rhinovirus bronchitis Continue with steroids Back on oxygen. Check CXR start flonase 2. Severe sepsis Present on admission Patient met sepsis criteria on admission but also had lactic acidosis Improving Secondary to rhinovirus 3. Acute rhinovirus infection Resolving 4. Atrial fibrillation with RVR ongoing Amio gtt Metoprolol Echo with EF 75% Cardiology consultation Start weight-based Lovenox Discussed with the patient's at bedside. Code Visit Inpatient E&M: 38148 Subs Hosp L2
--- NOTE | 2018-09-21 10:19 | PN_ITS ---
<Margie Hu - Last Filed: 09/21/18 10:19> Patient Problems: Active and Suspected Problems Atrial fibrillation with RVR (Acute) Rhinovirus (Acute) Severe sepsis (Acute) Subjective: Patient seen and examined. Drowsy this morning. Complains of restlessness overnight and states he didn't sleep well. Cough improved. Denies other complaints. Remains on amio gtt. - Physical Exam General: No apparent distress, - - Drowsy HEENT: Atraumatic, PERRLA, EOMI, Normocephalic Oral: Moist Mucosa Neck: Supple, No JVD, Negative Carotid Bruits Lungs: Diminished, Wheezes Cardiovascular: - - A.fib, intermittent tachycardia. Abdomen: Bowel Sounds Present, Soft, Non Tender, Non-Distended Extremities: No clubbing, No cyanosis, No edema, Capillary Refill Less than 3 Seconds Skin: No rashes, No breakdown Musculoskeletal: No Tenderness to Palpation of Joints or Extremities Neurological: Cranial nerves II-XII grossly intact, Neuro grossly intact Psych/Mental Status: Normal Affect, Appropriate Vital Signs Temp Pulse Resp BP Pulse Ox 97.6 F L 99 14 98/66 93 09/21/18 04:00 09/21/18 08:00 09/21/18 08:00 09/21/18 08:00 09/21/18 08:05 Oxygen Flow Rate (L/min) 3 Oxygen Delivery Method Nasal Cannula Weight: 210 lb 8.663 oz Body Mass Index (BMI) 33.0 Finger Stick Blood Glucose 151 Intake and Output for Last 24 Hours 09/19/18 09/20/18 09/21/18 23:59 23:59 23:59 Intake Total 1090 / 1090 1240 / 1240 1100.9 / 1100.9 Output Total 300 / 300 950 / 950 Balance 1090 / 1090 940 / 940 150.9 / 150.9 Microbiology Past 72 Hours 09/17/18 20:00 Blood Culture - Preliminary Blood Culture (Wb) - Anticubital Left No growth in 48 hours. 09/17/18 21:20 Blood Culture - Preliminary Blood Culture (Wb) - Anticubital Right No growth in 48 hours. 09/18/18 00:40 Respiratory Panel (PCR) - Final Mucosa - Nasopharyngeal Rhinovirus Laboratory Tests Past 24 Hrs 09/19/18 09/20/18 09/21/18 05:09 15:16 05:19 WBC 13.0 H RBC 4.70 Hgb 13.7 Hct 42.2 MCV 89.8 MCH 29.1 MCHC 32.5 RDW 15.4 H RDW Differential 50.0 H Plt Count 246 MPV 11.5 Immature Gran % (Auto) 0.200 Neut % (Auto) 67.2 Lymph % (Auto) 25.1 Kent % (Auto) 7.2 Eos % (Auto) 0.2 Baso % (Auto) 0.1 Absolute Neuts (auto) 8.7 H Absolute Lymphs (auto) 3.26 Total Counted Not Reportable Sodium Potassium Chloride Carbon Dioxide Anion Gap BUN Creatinine Estim Creat Clear Calc Est GFR (MDRD) Af Amer Est GFR (MDRD) Non-Af BUN/Creatinine Ratio Glucose Calcium Magnesium 1.6 Troponin I < 0.015 Triglycerides 210 H Cholesterol 177 LDL Cholesterol 91 VLDL Cholesterol 42 H HDL Cholesterol 44 TSH 0.22 L 09/21/18 09/21/18 05:19 05:19 WBC RBC Hgb Hct MCV MCH MCHC RDW RDW Differential Plt Count MPV Immature Gran % (Auto) Neut % (Auto) Lymph % (Auto) Kent % (Auto) Eos % (Auto) Baso % (Auto) Absolute Neuts (auto) Absolute Lymphs (auto) Total Counted Sodium 139 Potassium 3.0 L Chloride 104 Carbon Dioxide 26.0 Anion Gap 9 BUN 31 H Creatinine 1.33 H Estim Creat Clear Calc 45.56 Est GFR (MDRD) Af Amer 68 Est GFR (MDRD) Non-Af 56 L BUN/Creatinine Ratio 23.3 H Glucose 164 H Calcium 8.6 Magnesium Troponin I 0.016 Triglycerides Cholesterol LDL Cholesterol VLDL Cholesterol HDL Cholesterol TSH POC Glucose 09/20/18 09/20/18 09/20/18 21:55 16:46 11:58 POC Glucose 200 H 175 H 271 H Medical Necessity - Tobacco Use Smoking Status: Former smoker Assessment/Plan All Active Problems Atrial fibrillation with RVR (Acute) Hypertensive urgency (Acute) Rhinovirus (Acute) Severe sepsis (Acute) Acute respiratory insufficiency (Acute) Chest tightness (Resolved) Left wrist pain (Resolved) Syncopal episodes (Resolved) Ureteral calculus, right (Resolved) 1. Acute hypoxic respiratory insufficiency secondary to acute exacerbation of asthma due to acute rhinovirus, failed outpatient treatment with oral steroids and augmentin-chest x-ray on admission without acute process. Respiratory panel positive for rhinovirus. Levaquin discontinued. DC IV Solu-Medrol. Transition to oral prednisone. Tessalon perel TID PRN for cough. PRN Robitussin. Hycodan nightly for cough. PEP/IS. Continue supplement oxygen to maintain O2 sat above 90%. Walking pulse ox prior to DC. Respiratory status improved. 2. Acute sepsis, present on admission, secondary to acute rhinovirus- Patient with tachycardia, tachypnea, leukocytosis and lactic acidosis on admission. Lactic acidosis possibly reactive due to acute respiratory insufficiency as well. Improved. 3. Hypertensive urgency-SBP >200 on admission. Improved. Continue amlodipine, clonidine, lisinopril, metoprolol, chlorthalidone. Hydralazine as needed for SBP greater than 160. Continue to monitor. 4. New onset atrial fibrillation-echocardiogram shows an EF of 75%, RVSP estimated to be 40 mmHg. Left atrium severely enlarged. Cardiology following. On amiodarone drip. Therapeutic Lovenox. If patient does not convert to sinus rhythm, he will require Eliquis at discharge for 3 weeks with outpatient cardioversion. 5. Type 2 diabetes mellitus-continue home Amaryl, metformin regimen. Accu-Cheks before meals at bedtime with sliding scale insulin. 6. Hyperlipidemia- continue statin, lovaza. 7. Rheumatoid arthritis- continue remicaid. 8. Depression-continue home Cymbalta regimen. 9. BPH- continue proscar regimen. 10. GERD- continue PPI. DVT prophylaxis-lovenox sc This patient was seen by TERESE Basurto under the supervision of Dr. Tilley. <Rico Tilley - Last Filed: 09/21/18 14:53> Subjective: Feels weak and short of breath. - Physical Exam General: No apparent distress, - HEENT: Atraumatic, PERRLA, EOMI, Normocephalic, - - bilateral maxillary sinus tenderness. Oral: Moist Mucosa Lungs: Diminished, Wheezes - upper respiratory. Cardiovascular: - Abdomen: Bowel Sounds Present, Soft, Non Tender, Non-Distended Extremities: No edema, No Calf Tenderness Skin: No rashes, No breakdown Psych/Mental Status: Normal Affect, Appropriate Vital Signs Temp Pulse Resp BP Pulse Ox 36.5 C L 120 H 22 H 126/79 H 94 12/23/18 13:00 09/21/18 14:42 09/21/18 14:42 09/21/18 13:00 09/21/18 13:00 Oxygen Flow Rate (L/min) 4 Oxygen Delivery Method Nasal Cannula Weight: 95.5 kg Body Mass Index (BMI) 33.0 Finger Stick Blood Glucose 151 Intake and Output for Last 24 Hours 09/19/18 09/20/18 09/21/18 23:59 23:59 23:59 Intake Total 1090 / 1090 1240 / 1240 1770.9 / 1770.9 Output Total 300 / 300 1300 / 1300 Balance 1090 / 1090 940 / 940 470.9 / 470.9 Microbiology Past 72 Hours 09/17/18 20:00 Blood Culture - Preliminary Blood Culture (Wb) - Anticubital Left No growth in 48 hours. 09/17/18 21:20 Blood Culture - Preliminary Blood Culture (Wb) - Anticubital Right No growth in 48 hours. 09/18/18 00:40 Respiratory Panel (PCR) - Final Mucosa - Nasopharyngeal Rhinovirus Laboratory Tests Past 24 Hrs 09/20/18 09/21/18 09/21/18 15:16 05:19 05:19 WBC 13.0 H RBC 4.70 Hgb 13.7 Hct 42.2 MCV 89.8 MCH 29.1 MCHC 32.5 RDW 15.4 H RDW Differential 50.0 H Plt Count 246 MPV 11.5 Immature Gran % (Auto) 0.200 Neut % (Auto) 67.2 Lymph % (Auto) 25.1 Kent % (Auto) 7.2 Eos % (Auto) 0.2 Baso % (Auto) 0.1 Absolute Neuts (auto) 8.7 H Absolute Lymphs (auto) 3.26 Total Counted Not Reportable Sodium 139 Potassium 3.0 L Chloride 104 Carbon Dioxide 26.0 Anion Gap 9 BUN 31 H Creatinine 1.33 H Estim Creat Clear Calc 45.56 Est GFR (MDRD) Af Amer 68 Est GFR (MDRD) Non-Af 56 L BUN/Creatinine Ratio 23.3 H Glucose 164 H Calcium 8.6 Troponin I < 0.015 Triglycerides 210 H Cholesterol 177 LDL Cholesterol 91 VLDL Cholesterol 42 H HDL Cholesterol 44 Free T4 Free T3 pg/dL 09/21/18 09/21/18 09/21/18 05:19 05:19 11:15 WBC RBC Hgb Hct MCV MCH MCHC RDW RDW Differential Plt Count MPV Immature Gran % (Auto) Neut % (Auto) Lymph % (Auto) Kent % (Auto) Eos % (Auto) Baso % (Auto) Absolute Neuts (auto) Absolute Lymphs (auto) Total Counted Sodium Potassium Chloride Carbon Dioxide Anion Gap BUN Creatinine Estim Creat Clear Calc Est GFR (MDRD) Af Amer Est GFR (MDRD) Non-Af BUN/Creatinine Ratio Glucose Calcium Troponin I 0.016 0.020 Triglycerides Cholesterol LDL Cholesterol VLDL Cholesterol HDL Cholesterol Free T4 0.96 Free T3 pg/dL 2.4 09/21/18 13:58 WBC RBC Hgb Hct MCV MCH MCHC RDW RDW Differential Plt Count MPV Immature Gran % (Auto) Neut % (Auto) Lymph % (Auto) Kent % (Auto) Eos % (Auto) Baso % (Auto) Absolute Neuts (auto) Absolute Lymphs (auto) Total Counted Sodium Potassium Chloride Carbon Dioxide Anion Gap BUN Creatinine Estim Creat Clear Calc Est GFR (MDRD) Af Amer Est GFR (MDRD) Non-Af BUN/Creatinine Ratio Glucose Calcium Troponin I < 0.015 Triglycerides Cholesterol LDL Cholesterol VLDL Cholesterol HDL Cholesterol Free T4 Free T3 pg/dL POC Glucose 09/21/18 09/21/18 09/20/18 12:02 06:51 21:55 POC Glucose 189 H 170 H 200 H 09/20/18 16:46 POC Glucose 175 H Assessment/Plan Patient seen and examined independently. Data reviewed. I agree with the above note by the nurse practitioner. 1. Acute hypoxic respiratory insufficiency * Did drop down to 89% * Secondary to acute rhinovirus bronchitis * Continue with steroids * Back on oxygen. * Check CXR * start flonase 2. Severe sepsis * Present on admission * Patient met sepsis criteria on admission but also had lactic acidosis * Improving * Secondary to rhinovirus 3. Acute rhinovirus infection * Resolving 4. Atrial fibrillation with RVR * ongoing * Amio gtt * Metoprolol * Echo with EF 75% * Cardiology consultation * Start weight-based Lovenox Discussed with the patient's at bedside. Code Visit Inpatient E&M: 56039 Subs Hosp L2
[2018-09-21] MEDS: guaiFENesin 1,200 MG Tablet 1200 MG PO ×2 (10:24→21:27)
[2018-09-21] MEDS: 0.9% NaCl Peripheral Flush Adult/Peds IV (10:24)
[2018-09-21] MEDS: 0.9% Normal Saline 1,000 ML 125 ML IV ×2 (10:25→17:52)
[2018-09-21 11:21] LABS: Bedside Glucose 170 mg/dL (70-110)
[2018-09-21 11:54] LABS: Free T3 2.4 pg/mL (2.18-3.98); T4 Free Direct 0.96 ng/dL (0.76-1.46)
[2018-09-21 12:15] LABS: Bedside Glucose 189 mg/dL (70-110)
[2018-09-21] MEDS: Insulin Lispro 100 UNIT/ML INSULN.PEN SC ×3 (12:19→21:27)
[2018-09-21] MEDS: BENZOCAINE/MENTHOL 1 LOZENGE 2 LOZENGE MUCOUS MEM (14:24)
--- NOTE | 2018-09-21 14:53 | RAD_ITS ---
STUDY: X-RAY CHEST REASON FOR EXAM: Male, 73 years old. Cough TECHNIQUE: Frontal view of the chest COMPARISON: 09/17/2018 FINDINGS: The lungs are clear. There are no pleural effusions. There is no pneumothorax. The heart is normal in size. Again noted is fusion hardware in the cervical spine. RAD/Chest 1 View (Portable) IMPRESSION: No acute thoracic pathology. Electronically Signed: Evin Baldwin, at 15:20 EST Tel , Service support ,
[2018-09-21 17:15] LABS: Bedside Glucose 280 mg/dL (70-110)
[2018-09-21] MEDS: dilTIAZem CD 120 MG Capsule PO ×2 (17:52→21:27)
[2018-09-21] MEDS: Amiodarone 200 MG Tablet 400 MG PO (18:03)
--- NOTE | 2018-09-21 20:32 | CT_ITS ---
STUDY: CT CHEST WITH CONTRAST REASON FOR EXAM: Male, 73 years old. Increased shortness of breath, wheezing, fever RADIATION DOSAGE (If Supplied By Facility): CTDIvol = ( 17.51 ) mGy, DLP = ( 715.92 ) mGycm TECHNIQUE: Transaxial imaging was performed following intravenous administration of 100ML ml of Isovue 300 contrast material. Individualized dose optimization techniques were used for this CT. COMPARISON: None. FINDINGS: The lungs are normal. There is an accessory azygos fissure of the right upper lobe, representing an anatomic variant. There is no demonstrated pleural abnormality. The heart size is within normal limits. There is no pericardial effusion. Coronary arterial calcific lesions are present. Normal mediastinum. Normal hilar regions. Normal enhanced pulmonary arteries. There are calcified plaques of the thoracic aorta. There are diffuse degenerative changes of the visualized thoracolumbar spine. There are posterior spinal fusion changes of the visualized lower cervical region. There are several nonobstructing calculi in the upper pole of the left kidney measuring up to 3 mm. There is a 2.0 cm low-attenuation nodule of the left adrenal most likely representing a benign adenoma. CT/Chest WITH Contrast IMPRESSION: Coronary arterial calcifications are present. There are calcified plaques of the thoracic aorta. There are diffuse degenerative changes of the visualized thoracolumbar spine. There are posterior spinal fusion changes of the visualized lower cervical region. There are several nonobstructing calculi in the upper pole of the left kidney measuring up to 3 mm. There is a 2.0 cm low-attenuation nodule of the left adrenal most likely representing a benign adenoma. Electronically Signed: Remy Leary MD at 21:37 EST , Service support ,
[2018-09-21] MEDS: Fluticasone 0.05% 1 SPRAY NASAL.SRY NASAL (21:26)
[2018-09-21] MEDS: Loratadine 10 MG Tablet PO (21:27)
[2018-09-21] MEDS: Omega-3 Acid Ethyl Esters 1 GM Capsule 2 GM PO (21:27)
[2018-09-21] MEDS: Atorvastatin Calcium 20 MG Tablet PO (21:27)
[2018-09-21 21:41] LABS: Bedside Glucose 264 mg/dL (70-110)
[2018-09-22] VITALS (38 sets, daily range): BP systolic 102–187; BP diastolic 59–162; PULSE 93–162; RESP 15–26; TEMP 36.5–37; O2SAT 90–97
[2018-09-22] MEDS: 0.9% NaCl Peripheral Flush Adult/Peds IV ×5 (00:28→09:37)
[2018-09-22] MEDS: Furosemide 40 MG/4 ML Vial IV (00:28)
[2018-09-22] MEDS: dilTIAZem 25 MG/5 ML Vial 20 MG IV BOLUS (00:28)
[2018-09-22 04:06] LABS: Allen Test POS; Base Excess 2 mmol/L (-2 to +2); Bicarbonate 26.2 mmol/L (22-26); Blood Gas Specimen Type ART; O2 Delivery Device Nasal Can; PO2 82 mmHG (75-100); SITE L Radial; SO2 96 % (95-99); Time Given 400; Total Carbon Dioxide 27 mmol/L; pCO2 41.2 mmHg (35-45); pH 7.41 (7.35-7.45)
[2018-09-22] MEDS: hydrALAZINE 20 MG/ML Vial 10 MG IV (04:21)
[2018-09-22] MEDS: Ipratropium Bromide 0.06% NASAL SPRAY 2 SPRAY NASAL ×3 (05:49→21:12)
[2018-09-22] MEDS: BENZOCAINE/MENTHOL 1 LOZENGE 2 LOZENGE MUCOUS MEM ×2 (05:50→13:27)
[2018-09-22] MEDS: Enoxaparin 100 MG/ML Syringe 95 MG SC (05:50)
[2018-09-22] MEDS: Benzonatate 100 MG Capsule PO (05:50)
[2018-09-22] MEDS: Acetaminophen 325 MG Tablet 650 MG PO (05:50)
[2018-09-22 06:02] LABS: Absolute Neutrophil Count 16.8 X10^3/uL (2.0-7.7); Basophil# 0.01 X10^3/uL; Eosinophil# 0.01 X10^3/uL; Hematocrit 44.7 % (40-54); Hemoglobin 15.3 g/dl (13.0-16.5); Lymphocyte % 13.5 % (19-41); Mean Corp Hgb Conc 34.2 g/gl (32-36); Mean Corpuscular Hgb 30.2 pg (27.0-32.0); Mean Corpuscular Volume 88.2 fL (80-94); Mean Platelet Vol. 11.2 fl (6.2-12.0); Monocyte# 1.65 X10^3/uL; Monocyte% 7.7 % (0-10); Neutrophil # 16.81 X10^3/uL (2.7-7.7); Neutrophil % 78.3 % (47-70); Platelet Count 285 K/mm3 (150-450); RBC Distribution Width CV 15.6 % (11.6-14.6); RBC Distribution Width SD 50.4 fl (35.1-43.9); Red Blood Count 5.07 M/mm3 (4.6-6.2); White Blood Count 21.5 K/mm3 (4.4-11.0)
[2018-09-22 06:04] LABS: Differential Indicated SCAN CRITERIA MET; POSITIVE COUNT NO; POSITIVE DIFFERENTIAL YES; POSITIVE MORPHOLOGY NO
[2018-09-22 06:22] LABS: Anion Gap 12 (5-15); BUN 26 mg/dL (7-18); BUN/Creat Ratio 17.2 RATIO (10-20); Calcium,Total 8.9 mg/dL (8.5-10.1); Chloride 105 mmol/L (98-107); Creatinine, Serum 1.51 mg/dL (0.70-1.30); EST Glomerular Filtration Rate 48 mL/min (>60); Est Glom Filt Rate - Afr Amer 58 mL/min (>60); Estimated Creatinine Clearance 40.13 ml/min; Glucose 137 mg/dL (74-106); Potassium 3.4 mmol/L (3.5-5.1); Sodium Level 141 mmol/L (136-145)
[2018-09-22 06:56] LABS: Bedside Glucose 149 mg/dL (70-110)
--- NOTE | 2018-09-22 08:20 | PCM.CONS.GEN ---
Problem List (1) Atrial fibrillation with RVR Status: Acute (2) Hypertensive urgency Status: Acute (3) Rhinovirus Status: Acute (4) Severe sepsis Status: Acute (5) Acute respiratory insufficiency Status: Acute (6) DM2 (diabetes mellitus, type 2) Status: Chronic (7) Hyperlipidemia Status: Chronic (8) Inflammatory bowel disease Status: Chronic (9) Benign essential HTN Status: Chronic Reason for Consult Date of Consultation: 09/22/18 Reason for Consultation: Acute respiratory insufficiency History of Present Illness: The patient is a 73 year old M, with past medical history listed below, who presented to [facility] on 09/17/2018 secondary to worsening of respiratory status despite Augmentin and oral prednisone therapy. Patient reportedly has a history of COPD that is treated by Dr. Lange as an outpatient. Patient reportedly had intensification of cough and shortness of breath despite aerosol machine at home, so he came to the ER for evaluation. In the emergency room, patient was noted to be hypertensive at 200/100, tachycardic at 110 bpm and 99% on 2 L. Patient was noted to have a very harsh cough and an elevated white blood cell count at 16 with a lactate of 6. Patient was admitted to the PCU with a diagnosis of A. fib with RVR. Since admission, patient reports subjective improvement in overall condition. Patient was found to have rhinovirus. Patient reports that over the last 24 hours he has had increased mobilization of secretions. Patient states he is responding to Pap therapy, but vest therapy significantly inflamed his chronic back issues. Patient has persisted and tachycardia with heart rates in the 140s-150s despite amiodarone and other rate control options by cardiology. Patient is a [id number] smoking history. Patient states he is typically seen by Dr. Lange as an outpatient, but states I think I may need another doctor. Patient states he has had pulmonary function test in the past, but is unaware of the results. Patient is no longer smoking. Patient is on Remicade therapy at baseline secondary to rheumatoid arthritis and colitis. Patient is unaware of ever being told of bronchiectasis. Patient denies any history of travel, exposure to asbestos or TB. Patient denies any chest pain at this time. Patient does have a CPAP for sleep apnea that he uses supplemental oxygen, but denies any history of supplemental oxygen at baseline while awake. Past Medical History Past Medical History (Chronic Problems): Chronic Problems DM2 (diabetes mellitus, type 2) (Chronic) Hyperlipidemia (Chronic) Inflammatory bowel disease (Chronic) Benign essential HTN (Chronic) Rheumatoid aortitis (Chronic) Allergies aspirin Allergy (Verified 09/17/18 20:04) Swelling morphine Adverse Reaction (Verified 09/17/18 20:04) UNABLE TO URINATE Home Medications: Ambulatory Orders Medication Instructions Recorded Amlodipine/Benazepril [Lotrel 1 capsule PO DAILY 07/20/13 10-40 MG Capsule] Gabapentin [Neurontin] 600 mg PO BID 07/20/13 Finasteride [Proscar] 5 mg PO DAILY 03/14/15 Chlorthalidone [Hygroton] 50 mg PO DAILY 12/24/16 Infliximab-DYYB [Inflectra] 100 mg IV .COMPLEX 02/18/17 Esomeprazole Magnesium [Nexium 22.3 mg PO DAILY 04/15/17 24Hr] Loratadine [Claritin] 10 mg PO QHS 04/15/17 Albuterol Sulfate [Ventolin Hfa] 2 puff INHALATION BID 01/22/18 Clonidine HCl [Catapres] 0.2 mg PO BID 01/22/18 Glimepiride [Amaryl] 2 mg PO DAILY 01/22/18 Metoprolol Tartrate [Lopressor 50 mg PO BID 01/22/18 (beta andrey)] Amoxicillin/Potassium Clav 1 tab PO BID 09/17/18 [Amox-Clav 875-125 mg Tablet] Balsalazide Disodium 2,250 mg PO BID 09/17/18 Calcium (Elemental) [Os-Abiel 500] 500 mg PO DAILY@0800 09/17/18 Duloxetine HCl 60 mg PO DAILY 09/17/18 Ipratropium/Albuterol Sulfate 3 ml INHALATION Q4H PRN PRN 09/17/18 [Iprat-Albut 0.5-3(2.5) mg/3 ml] Metformin HCl 1,000 mg PO BID 09/17/18 Multivit-Min/FA/Lycopen/Lutein 1 each PO DAILY 09/17/18 [Centrum Silver Men Tablet] Bulger-3 Fatty Acids/Fish Oil 1,000 mg PO DAILY 09/17/18 [Bulger 3 1,000 mg Softgel] Bulger-3 Fatty Acids/Fish Oil 2,000 mg PO QHS 09/17/18 [Bulger 3 1,000 mg Softgel] Prednisone See Taper PO DAILY 09/17/18 Simvastatin 40 mg PO QHS 09/17/18 Surgical History: no surgical history, noncontributory, - - Fusion of the cervical spine, lumbar spine surgery, bilateral knee replacements, partial colon resection due to diverticulitis Psychiatric History: No pertinent psych hx Smoking Status: Former smoker - *Family History Maternal History Items: Heart Disease Paternal History Items: COPD, Heart Disease Review of Systems Comment: See HPI, otherwise negative x10 systems. Patient Problems: Active and Suspected Problems Atrial fibrillation with RVR (Acute) Rhinovirus (Acute) Severe sepsis (Acute) Objective: CT of the chest was personally reviewed. Patient does have calcified plaques throughout his aorta and coronary arteries. Patient does have scattered bronchiectasis noted with peribronchial cuffing. Echocardiogram shows an EF of 75% with no mention of diastolic dysfunction, mildly dilated RV, severely dilated left atrium and a right ventricular systolic pressure estimated at 40 mmHg. - Physical Exam General: Alert, Oriented x3, Cooperative, - - Mild conversational dyspnea. Paroxysmal type coughing noted. Obese. HEENT: Atraumatic, PERRLA, EOMI, Normocephalic, - - Slight scleral injection without icterus. Some nasal congestion appreciated. Oral: Moist Mucosa, No Gingival or Mucosal Lesions/ Ulcerations Neck: Supple, No JVD, No Nodes, Trachea Midline Lungs: No rales, Diminished, Rhonchi, Wheezes, - - Symmetric expansion. No dullness to percussion. Cardiovascular: Normal S1, Normal S2, No murmurs, Irregular Rate, No rub noted, No Gallop, Tachycardic, - - A. fib with RVR noted on telemetry Abdomen: Bowel Sounds Present, Soft, Non Tender, Non-Distended, Obese Extremities: No clubbing, No cyanosis, No edema, Capillary Refill Less than 3 Seconds Skin: No rashes, No breakdown Musculoskeletal: No Tenderness to Palpation of Joints or Extremities, No Muscle Wasting Lymphatic: No Cervical, Supraclavicular, or Inguinal Adenopathy Neurological: Cranial nerves II-XII grossly intact, Neuro grossly intact, Motor Exam 5/5 strength throughout Psych/Mental Status: Alert and oriented to time, place, person, mood and affect Vital Signs Temp Pulse Resp BP Pulse Ox 36.7 C 154 H 20 H 142/69 H 94 09/22/18 07:00 09/22/18 07:36 09/22/18 07:00 09/22/18 07:00 09/22/18 08:01 Oxygen Flow Rate (L/min) 4 Oxygen Delivery Method Nasal Cannula Weight: 95.5 kg Body Mass Index (BMI) 33.0 Finger Stick Blood Glucose 151 Intake and Output for Last 24 Hours 09/20/18 09/21/18 09/22/18 23:59 23:59 23:59 Intake Total 1240 / 1240 3080.9 / 3080.9 1153.4 / 1153.4 Output Total 300 / 300 1800 / 1800 2350 / 2350 Balance 940 / 940 1280.9 / 1280.9 -1196.6 / -1196.6 Microbiology Past 72 Hours 09/17/18 20:00 Blood Culture - Preliminary Blood Culture (Wb) - Anticubital Left No growth in 48 hours. 09/17/18 21:20 Blood Culture - Preliminary Blood Culture (Wb) - Anticubital Right No growth in 48 hours. Laboratory Tests Past 24 Hrs 09/21/18 09/21/18 09/21/18 05:19 05:19 11:15 WBC RBC Hgb Hct MCV MCH MCHC RDW RDW Differential Plt Count MPV Immature Gran % (Auto) Neut % (Auto) Lymph % (Auto) [place] % (Auto) Eos % (Auto) Baso % (Auto) Absolute Neuts (auto) Absolute Lymphs (auto) Total Counted Specimen Type Sample Site pH Bicarbonate Actual POC Total CO2 Base Excess O2 Saturation ABG pCO2 ABG pO2 Jasbir Test O2 Delivery Device Liter Flow Blood Gas Notified Whom Blood Gas Notified Time Sodium Potassium Chloride Carbon Dioxide Anion Gap BUN Creatinine Estim Creat Clear Calc Est GFR (MDRD) Af Amer Est GFR (MDRD) Non-Af BUN/Creatinine Ratio Glucose Calcium Magnesium Troponin I 0.016 0.020 B-Natriuretic Peptide Free T4 0.96 Free T3 pg/dL 2.4 09/21/18 09/22/18 09/22/18 13:58 04:00 05:44 WBC RBC Hgb Hct MCV MCH MCHC RDW RDW Differential Plt Count MPV Immature Gran % (Auto) Neut % (Auto) Lymph % (Auto) [place] % (Auto) Eos % (Auto) Baso % (Auto) Absolute Neuts (auto) Absolute Lymphs (auto) Total Counted Specimen Type ART Sample Site L Radial pH 7.41 Bicarbonate Actual 26.2 H POC Total CO2 27 Base Excess 2 O2 Saturation 96 ABG pCO2 41.2 ABG pO2 82 Jasbir Test POS O2 Delivery Device Nasal Can Liter Flow 4.0 Blood Gas Notified Whom [facility] Blood Gas Notified Time 400 Sodium 141 Potassium 3.4 L Chloride 105 Carbon Dioxide 24.0 Anion Gap 12 BUN 26 H Creatinine 1.51 H Estim Creat Clear Calc 40.13 Est GFR (MDRD) Af Amer 58 L Est GFR (MDRD) Non-Af 48 L BUN/Creatinine Ratio 17.2 Glucose 137 H Calcium 8.9 Magnesium 2.0 Troponin I < 0.015 B-Natriuretic Peptide Free T4 Free T3 pg/dL 09/22/18 09/22/18 05:44 05:44 WBC 21.5 H RBC 5.07 Hgb 15.3 Hct 44.7 MCV 88.2 MCH 30.2 MCHC 34.2 RDW 15.6 H RDW Differential 50.4 H Plt Count 285 MPV 11.2 Immature Gran % (Auto) 0.500 Neut % (Auto) 78.3 H Lymph % (Auto) 13.5 L [place] % (Auto) 7.7 Eos % (Auto) 0.0 Baso % (Auto) 0.0 Absolute Neuts (auto) 16.8 H Absolute Lymphs (auto) 2.90 Total Counted Not Reportable Specimen Type Sample Site pH Bicarbonate Actual POC Total CO2 Base Excess O2 Saturation ABG pCO2 ABG pO2 Jasbir Test O2 Delivery Device Liter Flow Blood Gas Notified Whom Blood Gas Notified Time Sodium Potassium Chloride Carbon Dioxide Anion Gap BUN Creatinine Estim Creat Clear Calc Est GFR (MDRD) Af Amer Est GFR (MDRD) Non-Af BUN/Creatinine Ratio Glucose Calcium Magnesium Troponin I B-Natriuretic Peptide Pending Free T4 Free T3 pg/dL POC Glucose 09/22/18 09/21/18 09/21/18 06:50 21:24 16:58 POC Glucose 149 H 264 H 280 H 09/21/18 09/21/18 12:02 06:51 POC Glucose 189 H 170 H Clinical Impression(s) from Imaging Studies Chest X-Ray 09/21/18 14:53 IMPRESSION: No acute thoracic pathology. Electronically Signed: Evin Baldwin, at 15:20 EST Tel , Service support , Chest CT 09/21/18 20:32 IMPRESSION: Coronary arterial calcifications are present. There are calcified plaques of the thoracic aorta. There are diffuse degenerative changes of the visualized thoracolumbar spine. There are posterior spinal fusion changes of the visualized lower cervical region. There are several nonobstructing calculi in the upper pole of the left kidney measuring up to 3 mm. There is a 2.0 cm low-attenuation nodule of the left adrenal most likely representing a benign adenoma. Electronically Signed: Remy Leary MD at 21:37 EST , Service support , Assessment/Plan All Active Problems Atrial fibrillation with RVR (Acute) Hypertensive urgency (Acute) Rhinovirus (Acute) Severe sepsis (Acute) Acute respiratory insufficiency (Acute) Chest tightness (Resolved) Left wrist pain (Resolved) Syncopal episodes (Resolved) Ureteral calculus, right (Resolved) RECOMMENDATIONS: 1. Continue bronchodilators and steroid therapy 2. Okay to discontinue vest therapy, continue PEP therapy 3. Initiate baseline nocturnal CPAP therapy 4. Wean oxygen as tolerated 5. Consider discontinuation of cough suppressants 6. Rate control per cardiology IMPRESSIONS: 1. Acute hypoxic respiratory insufficiency secondary to bronchiectasis exacerbation secondary to acute rhinovirus Patient failed outpatient therapy. Patient is currently off of antibiotics. Patient did receive IV Solu-Medrol for several days, but is currently on oral prednisone therapy. My personal review of the CT scan is more consistent with bronchiectasis, which may be secondary to uncontrolled asthma. Wean oxygen as tolerated. Patient will need a walking oximetry prior to discharge. Respiratory status is likely somewhat compromised secondary to A. fib with RVR. 2. A. fib with RVR/hypertensive urgency Cardiology is currently following. Patient is on multiple rate control medications at this time. Patient is currently on an amiodarone drip, but has significant dilation of the left atrium, so it is unclear if he will achieve sinus rhythm. Given patient's acute exacerbation of bronchiectasis/asthma, it is unclear if he would tolerate a CLEMENTINA for evaluation and cardioversion. Patient would likely be best served with anticoagulation and outpatient cardioversion. 3. Type 2 diabetes mellitus/hyperlipidemia/rheumatoid arthritis/depression/BPH/GERD/advanced age Complicates care, management, recovery and prognosis. Okay to continue with baseline medications. May consider holding Remicade for short period of time to allow for resolution of acute viral issues. Code Visit Inpatient E&M: 30449 Init Hosp L3
[2018-09-22 08:36] LABS: BNP,B-Type NATRIURETIC PEPTIDE 200.4 pg/mL (0-100)
[2018-09-22] MEDS: Metoprolol Tartrate 5 MG/5 ML Vial IV (09:30)
[2018-09-22] MEDS: predniSONE 10 MG Tablet 30 MG PO (09:30)
[2018-09-22] MEDS: guaiFENesin 1,200 MG Tablet 1200 MG PO ×2 (09:30→21:11)
[2018-09-22] MEDS: Finasteride 5 MG Tablet PO (09:30)
[2018-09-22] MEDS: sulfaSALAzine 500 MG Tablet PO ×3 (09:30→16:56)
[2018-09-22] MEDS: Glimepiride 2 MG Tablet PO (09:31)
[2018-09-22] MEDS: Calcium (Elemental) 500 MG Tablet PO (09:31)
[2018-09-22] MEDS: Pantoprazole Sodium 20 MG Tablet PO ×2 (09:31→21:11)
[2018-09-22] MEDS: Multivitamins,Ther W-Minerals Tablet 1 TABLET PO (09:31)
[2018-09-22] MEDS: Omega-3 Acid Ethyl Esters 1 GM Capsule PO (09:31)
[2018-09-22] MEDS: Chlorthalidone 50 MG Tablet PO (09:32)
[2018-09-22] MEDS: DULoxetine Hcl 60 MG Capsule PO (09:32)
[2018-09-22] MEDS: amLODIPine 10 MG Tablet PO (09:32)
[2018-09-22] MEDS: Lisinopril 40 MG Tablet PO (09:32)
[2018-09-22] MEDS: cloNIDine HCl 0.2 MG Tablet PO ×2 (09:33→21:11)
[2018-09-22] MEDS: Fluticasone 0.05% 1 SPRAY NASAL.SRY NASAL ×2 (09:33→21:12)
[2018-09-22] MEDS: dilTIAZem CD 240 MG Capsule PO (09:37)
[2018-09-22] MEDS: Gabapentin 600 MG Tablet PO ×2 (11:12→21:11)
[2018-09-22] MEDS: Insulin Lispro 100 UNIT/ML INSULN.PEN SC ×3 (11:12→21:11)
[2018-09-22 11:20] LABS: Bedside Glucose 203 mg/dL (70-110)
--- NOTE | 2018-09-22 12:10 | CASEMGMT ---
RN CM Assessment. Intro role of CM to pt and . Discussed possible need for Home oxygen. states pt has concentrator, CPAP from [facility], now going through [facility]. If home oxygen is needed, would like to use [facility]. Green sheet with information is on front of chart. Jose VELEZN RN ACM
--- NOTE | 2018-09-22 12:26 | PCM.PN.CARD ---
Subjectve: Patient reports that he is improving clinically, and his coughing has improved. Patient seen by pulmonary yesterday and CT scan performed. Chest x-ray shows no overt infiltrates. Patient still has gurgling mucus sounds, but somewhat improved with pulmonary toilet. Patient still with rapid atrial fibrillation which is uncontrolled at this time. Reinitiation of IV amiodarone was performed, as well as low-dose IV Lopressor which appears to have marginally improved his heart rate. Objective: Vital Signs Temp Pulse Resp BP Pulse Ox 98.1 F 128 H 17 140/73 H 95 09/22/18 12:00 09/22/18 12:00 09/22/18 12:00 09/22/18 12:00 09/22/18 12:00 Oxygen Flow Rate (L/min) 4 Oxygen Delivery Method Nasal Cannula Weight: 210 lb 8.663 oz Body Mass Index (BMI) 33.0 Finger Stick Blood Glucose 151 Intake and Output for Last 24 Hours 09/20/18 09/21/18 09/22/18 23:59 23:59 23:59 Intake Total 1240 / 1240 3080.9 / 3080.9 1455.4 / 1455.4 Output Total 300 / 300 1800 / 1800 3425 / 3425 Balance 940 / 940 1280.9 / 1280.9 -1969.6 / -1969.6 General: Awake, Alert, Oriented x 3 HEENT: PERRL, EOMI, Sclera Non Icteric Neck: Supple, Good ROM, No Lymph Node Enlargement Lungs: Clear to auscultation Cardiovascular: Irregular Rhythm, Normal S1, Normal S2, No Murmurs, No Rubs, No Gallops Vascular: No Carotid Bruits, Normal Femoral Pulses, Normal Radial Pulses, Normal Dorsalis Pedal Pulse, Normal Posterior Tibial Pulses Abdomen: Bowel Sounds Present, Soft, Non Tender, No HSM, No Organomegaly Extremities: No Cyanosis, No Clubbing, No edema Neurological: No Focal Motor or Sensory Deficit 09/21/18 13:58: Troponin I < 0.015 09/22/18 04:00: pH 7.41, Bicarbonate Actual 26.2 H, POC Total CO2 27, Base Excess 2, O2 Saturation 96, ABG pCO2 41.2, ABG pO2 82, Jasbir Test POS 09/22/18 05:44: Sodium 141, Potassium 3.4 L, Chloride 105, Carbon Dioxide 24.0, Anion Gap 12, BUN 26 H, Creatinine 1.51 H, Est GFR (MDRD) Af Amer 58 L, Est GFR (MDRD) Non-Af 48 L, BUN/Creatinine Ratio 17.2, Glucose 137 H, Calcium 8.9, Magnesium 2.0 09/22/18 05:44: WBC 21.5 H, RBC 5.07, Hgb 15.3, Hct 44.7, MCV 88.2, MCH 30.2, MCHC 34.2, RDW 15.6 H, RDW Differential 50.4 H, Plt Count 285, MPV 11.2, Immature Gran % (Auto) 0.500, Neut % (Auto) 78.3 H, Lymph % (Auto) 13.5 L, [place] % (Auto) 7.7, Eos % (Auto) 0.0, Baso % (Auto) 0.0, Absolute Neuts (auto) 16.8 H, Total Counted Not Reportable 09/22/18 05:44: B-Natriuretic Peptide 200.4 H Rhythm: EKG: Atrial fibrillation with rapid ventricular response. ECHO: Stress Test: Cardiac Cath: PCI: CT Surgery: Holter monitor: EPS: PPM: CXR: Chest CT Scan: Medical Necessity - Tobacco Use Smoking Status: Former smoker Assessment/Plan 1. Atrial fibrillation: Patient presents with what appears to be bronchitis possibly viral in origin, with productive cough, sputum, superimposed upon asthma is a previous baseline. Patient has an elevated white blood cell count, and is being treated with antibiotics and prednisone therapy, as well as antivirals for positive flu. Patient developed atrial fibrillation from sinus rhythm on this admission, with rapid ventricular response. His troponins are negative x3, and his LV function is hyperdynamic with an EF around 75%. At this point I would recommend IV fluid resuscitation to improve his systolic blood pressure, and more likely decrease his heart rate as well. Patient did not respond well to p.o. Cardizem, and had minimal response to IV Lopressor with no apparent deterioration of his reactive airway disease. Patient has had minimal improvement of his productive sputum with pulmonary toilet. Would hold off on dobutamine echocardiogram until the patient has recovered from his pulmonary issues. I recommended that we restart his IV amiodarone for additional loading, as well as Lovenox therapy. At this point it does not appear that he is going to convert on his own, and nonetheless would recommend Eliquis 5 mg p.o. twice daily and discontinuation of subcu Lovenox. Would recommend increasing Cardizem to Cardizem CD 180 mg p.o. twice daily for heart rate control. This may be augmented by periodic IV Lopressor 5 mg every 4 to 6 hours. Regardless of whether the patient converts on his own, we will continue Eliquis therapy for at least one months time. TSH is somewhat on the low side. Recommend checking T4. 2. Hyperlipidemia: LDL is 91 HDL is 44. 3. Asthma: Patient has baseline asthma, which is not responding to prednisone p.o. or antibiotic therapy. Appreciate pulmonary consult. Will defer to pulmonary with respect to his reactive airway disease. Patient had no adverse events from a pulmonary standpoint with IV Lopressor, may consider dual Cardizem and beta-andrey therapy going forward should this be needed. 4. Thank you very much for the opportunity to participate in the cardiac care of your patient. Code Visit Inpatient E&M: 29072 Subs Hosp L2
[2018-09-22 13:05] LABS: T4 Free Direct 0.88 ng/dL (0.76-1.46)
--- NOTE | 2018-09-22 13:21 | PCM.PN.HOSP ---
Patient Problems: Active and Suspected Problems Atrial fibrillation with RVR (Acute) Rhinovirus (Acute) Severe sepsis (Acute) Acute respiratory insufficiency (Acute) Subjective: still shortness of breath. feeling somewhat better. Vitals/I&O's: Vital Signs Temp Pulse Resp BP Pulse Ox 36.7 C 128 H 17 140/73 H 95 09/22/18 12:00 09/22/18 12:00 09/22/18 12:00 09/22/18 12:00 09/22/18 12:00 Oxygen Flow Rate (L/min) 4 Oxygen Delivery Method Nasal Cannula Weight: 95.5 kg Body Mass Index (BMI) 33.0 Finger Stick Blood Glucose 151 Intake and Output for Last 24 Hours 09/20/18 09/21/18 09/22/18 23:59 23:59 23:59 Intake Total 1240 / 1240 3080.9 / 3080.9 1455.4 / 1455.4 Output Total 300 / 300 1800 / 1800 3425 / 3425 Balance 940 / 940 1280.9 / 1280.9 -1969.6 / -1968.6 General: No apparent distress HEENT: Atraumatic, Normocephalic Oral: Moist Mucosa, No Gingival or Mucosal Lesions/ Ulcerations Neck: No Nodes, Thyroid Normal Size and Texture Lungs: Clear to auscultation, Normal air movement, No rhonchi, - - upper respiratory wheeze Cardiovascular: Regular rate, Regular Rhythm, Normal S1, Normal S2 Extremities: No edema, No Calf Tenderness Microbiology Past 72 Hours 09/17/18 20:00 Blood Culture (Wb) - Anticubital Left Blood Culture - Preliminary No growth in 48 hours. 09/17/18 21:20 Blood Culture (Wb) - Anticubital Right Blood Culture - Preliminary No growth in 48 hours. Laboratory Results 09/21/18 13:58: Troponin I < 0.015 09/21/18 16:58: POC Glucose 280 H 09/21/18 21:24: POC Glucose 264 H 09/22/18 04:00: Specimen Type ART, Sample Site L Radial, pH 7.41, Bicarbonate Actual 26.2 H, POC Total CO2 27, Base Excess 2, O2 Saturation 96, ABG pCO2 41.2, ABG pO2 82, Jasbir Test POS, O2 Delivery Device Nasal Can, Liter Flow 4.0, Blood Gas Notified Whom HOSP , Blood Gas Notified Time 400 09/22/18 05:44: Sodium 141, Potassium 3.4 L, Chloride 105, Carbon Dioxide 24.0, Anion Gap 12, BUN 26 H, Creatinine 1.51 H, Estim Creat Clear Calc 40.13, Est GFR (MDRD) Af Amer 58 L, Est GFR (MDRD) Non-Af 48 L, BUN/Creatinine Ratio 17.2, Glucose 137 H, Calcium 8.9, Magnesium 2.0 09/22/18 05:44: WBC 21.5 H, RBC 5.07, Hgb 15.3, Hct 44.7, MCV 88.2, MCH 30.2, MCHC 34.2, RDW 15.6 H, RDW Differential 50.4 H, Plt Count 285, MPV 11.2, Immature Gran % (Auto) 0.500, Neut % (Auto) 78.3 H, Lymph % (Auto) 13.5 L, [place] % (Auto) 7.7, Eos % (Auto) 0.0, Baso % (Auto) 0.0, Absolute Neuts (auto) 16.8 H, Absolute Lymphs (auto) 2.90, Total Counted Not Reportable 09/22/18 05:44: B-Natriuretic Peptide 200.4 H 09/22/18 05:44: Free T4 0.88 09/22/18 06:50: POC Glucose 149 H 09/22/18 11:12: POC Glucose 203 H Current Medications Acetaminophen (Tylenol) 650 mg PO Q6H PRN PRN PRN Reason: HEADACHE Last Admin: 09/22/18 05:50 Dose: 650 mg Albuterol Sulfate (Ventolin Aerosols) 2.5 mg INHALATION Q2H PRN PRN PRN Reason: SHORTNESS OF BREATH Albuterol/Ipratropium (Duoneb) 3 ml INHALATION Q4HWA.RT JOHANNA Last Admin: 09/22/18 11:13 Dose: Not Given Amlodipine Besylate (Norvasc) 10 mg PO DAILY [facility] Last Admin: 09/22/18 09:32 Dose: 10 mg Apixaban (Eliquis) 5 mg PO BID [facility] Atorvastatin Calcium (Lipitor) 20 mg PO QHS [facility] Last Admin: 09/21/18 21:27 Dose: 20 mg Benzonatate (Tessalon Perle) 100 mg PO TID PRN PRN PRN Reason: COUGH Last Admin: 09/22/18 05:50 Dose: 100 mg Calcium Carbonate (Os-Abiel 500) 500 mg PO DAILY@0800 [facility] Last Admin: 09/22/18 09:31 Dose: 500 mg Chlorthalidone (Hygroton) 50 mg PO DAILY [facility] Last Admin: 09/22/18 09:32 Dose: 50 mg Clonidine (Catapres) 0.2 mg PO BID [facility] Last Admin: 09/22/18 09:33 Dose: 0.2 mg Diltiazem HCl (Cardizem Cd) 180 mg PO Q12 [facility] Duloxetine HCl (Cymbalta) 60 mg PO DAILY [facility] Last Admin: 09/22/18 09:32 Dose: 60 mg Finasteride (Proscar) 5 mg PO DAILY [facility] Last Admin: 09/22/18 09:30 Dose: 5 mg Fluticasone Propionate (Flonase Nasal [place]) 1 spray NASAL BID [facility] Last Admin: 09/22/18 09:33 Dose: 1 spray Gabapentin (Neurontin) 600 mg PO BID [facility] Last Admin: 09/22/18 11:12 Dose: 600 mg [facility] ([facility]) [facility] Last Admin: 09/22/18 09:31 Dose: 2 mg Guaifenesin (Robitussin) 10 ml PO Q4H PRN PRN PRN Reason: COUGH Last Admin: 09/19/18 14:20 Dose: 10 ml Guaifenesin (Mucinex) 1,200 mg PO BID [facility] Last Admin: 09/22/18 09:30 Dose: 1,200 mg Hydralazine HCl (Apresoline Iv) 10 mg IV Q4H PRN PRN PRN Reason: BLOOD PRESSURE Last Admin: 09/22/18 04:21 Dose: 10 mg Hydrocodone Bit/Homatropine Methylb (Hycodan Syrup) 5 ml PO QHS [facility] Last Admin: 09/21/18 21:27 Dose: 5 ml Amiodarone HCl 360 mg/ (Dextrose) 200 mls @ 33.33 mls/hr CONT INF .Q6H1M [facility] Stop: 09/22/18 16:00 Last Admin: 09/22/18 10:20 Dose: 33.33 mls/hr Amiodarone HCl 360 mg/ (Dextrose) 200 mls @ 16.67 mls/hr CONT INF .Q12H [facility] Insulin Human Lispro (Humalog Kwikpen (Bkc)) 0 unit SC ACHS [facility]; Protocol Last Admin: 09/22/18 11:12 Dose: 4 u Ipratropium [place] (Atrovent Nasal [place] (G)) 2 spray NASAL TID [facility] Last Admin: 09/22/18 05:49 Dose: 2 spray Lisinopril (Zestril) 40 mg PO DAILY [facility] Last Admin: 09/22/18 09:32 Dose: 40 mg Loratadine (Claritin) 10 mg PO QHS [facility] Last Admin: 09/21/18 21:27 Dose: 10 mg Magnesium Hydroxide (Milk Of Magnesia) 30 ml PO DAILY PRN PRN PRN Reason: Constipation Metformin HCl (Glucophage) [facility] Last Admin: 09/18/18 17:05 Dose: 1,000 mg Multivitamins/Minerals (Multivitamin With Minerals) 1 tablet PO DAILY@0800 [facility] Last Admin: 09/22/18 09:31 Dose: 1 tablet [id number] Ethyl Esters (Lovaza) 1 gm PO DAILY [facility] Last Admin: 09/22/18 09:31 Dose: 1 gm [id number] Ethyl Esters (Lovaza) 2 gm PO QHS [facility] Last Admin: 09/21/18 21:27 Dose: 2 gm Pantoprazole Sodium (Protonix) 20 mg PO BID [facility] Last Admin: 09/22/18 09:31 Dose: 20 mg Polyethylene Glycol (Miralax) 17 gm PO DAILY [facility] Prednisone () 40 mg PO DAILY@0800 [facility]; Taper Stop: 10/03/18 07:59 Last Admin: 09/22/18 09:30 Dose: 40 mg Sodium Chloride () 5 - 15 ml IV UD PRN PRN Reason: SALINE FLUSH Last Admin: 09/22/18 09:37 Dose: 10 ml Sulfasalazine (Azulfidine) 500 mg PO TIDCM [facility] Last Admin: 09/22/18 11:13 Dose: 500 mg Throat Lozenges (Cepacol Sore Throat Lozenge) 2 lozenge MUCOUS MEM Q2H PRN PRN PRN Reason: SORE THROAT Last Admin: 09/22/18 05:50 Dose: 2 lozenge Zolpidem Tartrate (Ambien (Generic)) 5 mg PO QHS PRN PRN PRN Reason: SLEEP Last Admin: 09/20/18 22:02 Dose: 5 mg Medical Necessity - Tobacco Use Smoking Status: Former smoker Assessment/Plan All Active Problems Atrial fibrillation with RVR (Acute) Hypertensive urgency (Acute) Rhinovirus (Acute) Severe sepsis (Acute) Acute respiratory insufficiency (Acute) Chest tightness (Resolved) Left wrist pain (Resolved) Syncopal episodes (Resolved) Ureteral calculus, right (Resolved) 1. Acute hypoxic respiratory insufficiency Did drop down to 89% Secondary to acute rhinovirus bronchitis Continue with steroids Back on oxygen. Check CXR start flonase 2. Severe sepsis Present on admission Patient met sepsis criteria on admission but also had lactic acidosis Improving Secondary to rhinovirus 3. Acute rhinovirus infection Resolving 4. Atrial fibrillation with RVR ongoing Amio gtt Metoprolol Echo with EF 75% Cardiology consultation Eliquis 5. Acute exacerbation of bronchiectasis pulm on consult. Discussed with the patient's at bedside. Code Visit Inpatient E&M: 79875 Subs Hosp L2
--- NOTE | 2018-09-22 13:27 | PN_ITS ---
Patient Problems: Active and Suspected Problems Atrial fibrillation with RVR (Acute) Rhinovirus (Acute) Severe sepsis (Acute) Acute respiratory insufficiency (Acute) Subjective: still shortness of breath. feeling somewhat better. Vitals/I&O's: Vital Signs Temp Pulse Resp BP Pulse Ox 36.7 C 128 H 17 140/73 H 95 09/22/18 12:00 09/22/18 12:00 09/22/18 12:00 09/22/18 12:00 09/22/18 12:00 Oxygen Flow Rate (L/min) 4 Oxygen Delivery Method Nasal Cannula Weight: 95.5 kg Body Mass Index (BMI) 33.0 Finger Stick Blood Glucose 151 Intake and Output for Last 24 Hours 09/20/18 09/21/18 09/22/18 23:59 23:59 23:59 Intake Total 1240 / 1240 3080.9 / 3080.9 1455.4 / 1455.4 Output Total 300 / 300 1800 / 1800 3425 / 3425 Balance 940 / 940 1280.9 / 1280.9 -1969.6 / -1968.6 General: No apparent distress HEENT: Atraumatic, Normocephalic Oral: Moist Mucosa, No Gingival or Mucosal Lesions/ Ulcerations Neck: No Nodes, Thyroid Normal Size and Texture Lungs: Clear to auscultation, Normal air movement, No rhonchi, - - upper respiratory wheeze Cardiovascular: Regular rate, Regular Rhythm, Normal S1, Normal S2 Extremities: No edema, No Calf Tenderness Microbiology Past 72 Hours 09/17/18 20:00 Blood Culture (Wb) - Anticubital Left Blood Culture - Preliminary No growth in 48 hours. 09/17/18 21:20 Blood Culture (Wb) - Anticubital Right Blood Culture - Preliminary No growth in 48 hours. Laboratory Results 09/21/18 13:58: Troponin I < 0.015 09/21/18 16:58: POC Glucose 280 H 09/21/18 21:24: POC Glucose 264 H 09/22/18 04:00: Specimen Type ART, Sample Site L Radial, pH 7.41, Bicarbonate Actual 26.2 H, POC Total CO2 27, Base Excess 2, O2 Saturation 96, ABG pCO2 41.2, ABG pO2 82, Jasbir Test POS, O2 Delivery Device Nasal Can, Liter Flow 4.0, Blood Gas Notified Whom HOSP , Blood Gas Notified Time 400 09/22/18 05:44: Sodium 141, Potassium 3.4 L, Chloride 105, Carbon Dioxide 24.0, Anion Gap 12, BUN 26 H, Creatinine 1.51 H, Estim Creat Clear Calc 40.13, Est GFR (MDRD) Af Amer 58 L, Est GFR (MDRD) Non-Af 48 L, BUN/Creatinine Ratio 17.2, Glucose 137 H, Calcium 8.9, Magnesium 2.0 09/22/18 05:44: WBC 21.5 H, RBC 5.07, Hgb 15.3, Hct 44.7, MCV 88.2, MCH 30.2, MCHC 34.2, RDW 15.6 H, RDW Differential 50.4 H, Plt Count 285, MPV 11.2, Immature Gran % (Auto) 0.500, Neut % (Auto) 78.3 H, Lymph % (Auto) 13.5 L, [place] % (Auto) 7.7, Eos % (Auto) 0.0, Baso % (Auto) 0.0, Absolute Neuts (auto) 16.8 H, Absolute Lymphs (auto) 2.90, Total Counted Not Reportable 09/22/18 05:44: B-Natriuretic Peptide 200.4 H 09/22/18 05:44: Free T4 0.88 09/22/18 06:50: POC Glucose 149 H 09/22/18 11:12: POC Glucose 203 H Current Medications Acetaminophen (Tylenol) 650 mg PO Q6H PRN PRN PRN Reason: HEADACHE Last Admin: 09/22/18 05:50 Dose: 650 mg Albuterol Sulfate (Ventolin Aerosols) 2.5 mg INHALATION Q2H PRN PRN PRN Reason: SHORTNESS OF BREATH Albuterol/Ipratropium (Duoneb) 3 ml INHALATION Q4HWA.RT JOHANNA Last Admin: 09/22/18 11:13 Dose: Not Given Amlodipine Besylate (Norvasc) 10 mg PO DAILY [facility] Last Admin: 09/22/18 09:32 Dose: 10 mg Apixaban (Eliquis) 5 mg PO BID [facility] Atorvastatin Calcium (Lipitor) 20 mg PO QHS [facility] Last Admin: 09/21/18 21:27 Dose: 20 mg Benzonatate (Tessalon Perle) 100 mg PO TID PRN PRN PRN Reason: COUGH Last Admin: 09/22/18 05:50 Dose: 100 mg Calcium Carbonate (Os-Abiel 500) 500 mg PO DAILY@0800 [facility] Last Admin: 09/22/18 09:31 Dose: 500 mg Chlorthalidone (Hygroton) 50 mg PO DAILY [facility] Last Admin: 09/22/18 09:32 Dose: 50 mg Clonidine (Catapres) 0.2 mg PO BID [facility] Last Admin: 09/22/18 09:33 Dose: 0.2 mg Diltiazem HCl (Cardizem Cd) 180 mg PO Q12 [facility] Duloxetine HCl (Cymbalta) 60 mg PO DAILY [facility] Last Admin: 09/22/18 09:32 Dose: 60 mg Finasteride (Proscar) 5 mg PO DAILY [facility] Last Admin: 09/22/18 09:30 Dose: 5 mg Fluticasone Propionate (Flonase Nasal [place]) 1 spray NASAL BID [facility] Last Admin: 09/22/18 09:33 Dose: 1 spray Gabapentin (Neurontin) 600 mg PO BID [facility] Last Admin: 09/22/18 11:12 Dose: 600 mg [facility]l) [facility] Last Admin: 09/22/18 09:31 Dose: 2 mg Guaifenesin (Robitussin) 10 ml PO Q4H PRN PRN PRN Reason: COUGH Last Admin: 09/19/18 14:20 Dose: 10 ml Guaifenesin (Mucinex) 1,200 mg PO BID [facility] Last Admin: 09/22/18 09:30 Dose: 1,200 mg Hydralazine HCl (Apresoline Iv) 10 mg IV Q4H PRN PRN PRN Reason: BLOOD PRESSURE Last Admin: 09/22/18 04:21 Dose: 10 mg Hydrocodone Bit/Homatropine Methylb (Hycodan Syrup) 5 ml PO QHS [facility] Last Admin: 09/21/18 21:27 Dose: 5 ml Amiodarone HCl 360 mg/ (Dextrose) 200 mls @ 33.33 mls/hr CONT INF .Q6H1M [facility] Stop: 09/22/18 16:00 Last Admin: 09/22/18 10:20 Dose: 33.33 mls/hr Amiodarone HCl 360 mg/ (Dextrose) 200 mls @ 16.67 mls/hr CONT INF .Q12H [facility] Insulin Human Lispro (Humalog Kwikpen (Bkc)) 0 unit SC ACHS [facility]; Protocol Last Admin: 09/22/18 11:12 Dose: 4 u Ipratropium [place] (Atrovent Nasal [place] (G)) 2 spray NASAL TID [facility] Last Admin: 09/22/18 05:49 Dose: 2 spray Lisinopril (Zestril) 40 mg PO DAILY [facility] Last Admin: 09/22/18 09:32 Dose: 40 mg Loratadine (Claritin) 10 mg PO QHS [facility] Last Admin: 09/21/18 21:27 Dose: 10 mg Magnesium Hydroxide (Milk Of Magnesia) 30 ml PO DAILY PRN PRN PRN Reason: Constipation Metformin HCl (Glucophage) [facility] Last Admin: 09/18/18 17:05 Dose: 1,000 mg Multivitamins/Minerals (Multivitamin With Minerals) 1 tablet PO DAILY@0800 [facility] Last Admin: 09/22/18 09:31 Dose: 1 tablet [id number] Ethyl Esters (Lovaza) 1 gm PO DAILY [facility] Last Admin: 09/22/18 09:31 Dose: 1 gm [id number] Ethyl Esters (Lovaza) 2 gm PO QHS [facility] Last Admin: 09/21/18 21:27 Dose: 2 gm Pantoprazole Sodium (Protonix) 20 mg PO BID [facility] Last Admin: 09/22/18 09:31 Dose: 20 mg Polyethylene Glycol (Miralax) 17 gm PO DAILY [facility] Prednisone () 40 mg PO DAILY@0800 [facility]; Taper Stop: 10/03/18 07:59 Last Admin: 09/22/18 09:30 Dose: 40 mg Sodium Chloride () 5 - 15 ml IV UD PRN PRN Reason: SALINE FLUSH Last Admin: 09/22/18 09:37 Dose: 10 ml Sulfasalazine (Azulfidine) 500 mg PO TIDCM [facility] Last Admin: 09/22/18 11:13 Dose: 500 mg Throat Lozenges (Cepacol Sore Throat Lozenge) 2 lozenge MUCOUS MEM Q2H PRN PRN PRN Reason: SORE THROAT Last Admin: 09/22/18 05:50 Dose: 2 lozenge Zolpidem Tartrate (Ambien (Generic)) 5 mg PO QHS PRN PRN PRN Reason: SLEEP Last Admin: 09/20/18 22:02 Dose: 5 mg Medical Necessity - Tobacco Use Smoking Status: Former smoker Assessment/Plan All Active Problems Atrial fibrillation with RVR (Acute) Hypertensive urgency (Acute) Rhinovirus (Acute) Severe sepsis (Acute) Acute respiratory insufficiency (Acute) Chest tightness (Resolved) Left wrist pain (Resolved) Syncopal episodes (Resolved) Ureteral calculus, right (Resolved) 1. Acute hypoxic respiratory insufficiency * Did drop down to 89% * Secondary to acute rhinovirus bronchitis * Continue with steroids * Back on oxygen. * Check CXR * start flonase 2. Severe sepsis * Present on admission * Patient met sepsis criteria on admission but also had lactic acidosis * Improving * Secondary to rhinovirus 3. Acute rhinovirus infection * Resolving 4. Atrial fibrillation with RVR * ongoing * Amio gtt * Metoprolol * Echo with EF 75% * Cardiology consultation * Eliquis 5. Acute exacerbation of bronchiectasis * pulm on consult. Discussed with the patient's at bedside. Code Visit Inpatient E&M: 41753 Subs Hosp L2
[2018-09-22 16:36] LABS: Bedside Glucose 256 mg/dL (70-110)
[2018-09-22] MEDS: Ipratropium/Albuterol Sulfate 3 ML AMPUL.NEB INHALATION ×2 (16:56→19:32)
[2018-09-22] MEDS: Omega-3 Acid Ethyl Esters 1 GM Capsule 2 GM PO (21:11)
[2018-09-22] MEDS: APIXABAN 5 MG TABLET PO (21:11)
[2018-09-22] MEDS: Atorvastatin Calcium 20 MG Tablet PO (21:11)
[2018-09-22] MEDS: dilTIAZem CD 180 MG Capsule PO (21:11)
[2018-09-22] MEDS: Loratadine 10 MG Tablet PO (21:11)
[2018-09-23] VITALS (28 sets, daily range): BP systolic 91–149; BP diastolic 62–84; PULSE 69–110; RESP 13–21; TEMP 36.4–36.8; O2SAT 88–97
--- NOTE | 2018-09-23 00:57 | NURSING ---
This nurse taking over care of this pt. at this time. Report obtained from Bernabe Monterroso RN.
[2018-09-23] MEDS: Ipratropium Bromide 0.06% NASAL SPRAY 2 SPRAY NASAL ×3 (06:05→21:16)
[2018-09-23 06:46] LABS: Absolute Lymphocyte Count 1.36 X10^3/ul (0.83-4.51); Absolute Neutrophil Count 15.6 X10^3/uL (2.0-7.7); Basophil# 0.01 X10^3/uL; Basophil% 0.1 % (0-1); Eosinophil# 0.01 X10^3/uL; Eosinophils% 0.1 % (0-5); Hematocrit 39.5 % (40-54); Lymphocyte # 1.36 X10^3/ul (4.0); Lymphocyte % 7.5 % (19-41); Mean Corp Hgb Conc 32.9 g/gl (32-36); Mean Corpuscular Hgb 29.5 pg (27.0-32.0); Mean Corpuscular Volume 89.6 fL (80-94); Mean Platelet Vol. 11.4 fl (6.2-12.0); Monocyte# 1.08 X10^3/uL; Neutrophil # 15.57 X10^3/uL (2.7-7.7); Neutrophil % 86.1 % (47-70); Platelet Count 218 K/mm3 (150-450); RBC Distribution Width CV 15.5 % (11.6-14.6); RBC Distribution Width SD 50.4 fl (35.1-43.9); Red Blood Count 4.41 M/mm3 (4.6-6.2); White Blood Count 18.1 K/mm3 (4.4-11.0)
[2018-09-23 07:01] LABS: Bedside Glucose 177 mg/dL (70-110)
[2018-09-23 07:01] LABS: POSITIVE COUNT NO; POSITIVE DIFFERENTIAL NO; POSITIVE MORPHOLOGY NO
[2018-09-23 07:02] LABS: Anion Gap 10 (5-15); BUN 35 mg/dL (7-18); BUN/Creat Ratio 22.9 RATIO (10-20); Calcium,Total 8.9 mg/dL (8.5-10.1); Chloride 103 mmol/L (98-107); Creatinine, Serum 1.53 mg/dL (0.70-1.30); EST Glomerular Filtration Rate 48 mL/min (>60); Est Glom Filt Rate - Afr Amer 58 mL/min (>60); Glucose 189 mg/dL (74-106); Potassium 3.5 mmol/L (3.5-5.1); Sodium Level 141 mmol/L (136-145)
--- NOTE | 2018-09-23 07:03 | PCM.PROGNOTE ---
Patient Problems: Active and Suspected Problems Atrial fibrillation with RVR (Acute) Rhinovirus (Acute) Severe sepsis (Acute) Acute respiratory insufficiency (Acute) Subjective: Patient did well overnight. Patient has converted to normal sinus rhythm, but remains on amiodarone drip. Patient did use CPAP overnight with baseline nasal cannula oxygen requirements. Patient was able to tolerate nasal cannula oxygen yesterday. No fevers have been reported overnight and patient reports subjective improvement. - Physical Exam General: Alert, Oriented x3, Cooperative, No apparent distress, Well developed, Well nourished, - - Slightly groggy initially after being woken up on CPAP by nasal pillows. No significant leak noted. HEENT: Atraumatic, PERRLA, EOMI, Normocephalic, - - No scleral icterus or injection noted. Oral: Moist Mucosa, No Gingival or Mucosal Lesions/ Ulcerations Neck: Supple, No JVD, No Nodes, Trachea Midline Lungs: No rhonchi, No rales, Diminished, Wheezes, - - Symmetric expansion. No dullness to percussion. Cardiovascular: Regular rate, Regular Rhythm, Normal S1, Normal S2, No murmurs, No rub noted, No Gallop Abdomen: Bowel Sounds Present, Soft, Non Tender, Non-Distended, Obese Extremities: No clubbing, No cyanosis, No edema, Capillary Refill Less than 3 Seconds Skin: No rashes, No breakdown Musculoskeletal: No Tenderness to Palpation of Joints or Extremities Lymphatic: No Cervical, Supraclavicular, or Inguinal Adenopathy Neurological: Cranial nerves II-XII grossly intact, Neuro grossly intact, Motor Exam 5/5 strength throughout Psych/Mental Status: Alert and oriented to time, place, person, mood and affect Vital Signs Temp Pulse Resp BP Pulse Ox 36.4 C L 69 14 104/68 92 09/23/18 06:00 09/23/18 06:00 09/23/18 06:00 09/23/18 06:00 09/23/18 06:00 Oxygen Flow Rate (L/min) 3 Oxygen Delivery Method CPAP Weight: 95.5 kg Body Mass Index (BMI) 33.0 Finger Stick Blood Glucose 151 Intake and Output for Last 24 Hours 09/21/18 09/22/18 09/23/18 23:59 23:59 23:59 Intake Total 3080.9 / 3080.9 1869.4 / 1869.4 542 / 542 Output Total 1800 / 1800 3850 / 3850 450 / 450 Balance 1280.9 / 1280.9 -1980.6 / -1979.6 92 / 92 Microbiology Past 72 Hours 09/17/18 20:00 Blood Culture - Preliminary Blood Culture (Wb) - Anticubital Left No growth in 48 hours. 09/17/18 21:20 Blood Culture - Preliminary Blood Culture (Wb) - Anticubital Right No growth in 48 hours. Laboratory Tests Past 24 Hrs 09/22/18 09/22/18 09/23/18 05:44 05:44 05:23 WBC 18.1 H RBC 4.41 L Hgb 13.0 Hct 39.5 L MCV 89.6 MCH 29.5 MCHC 32.9 RDW 15.5 H RDW Differential 50.4 H Plt Count 218 MPV 11.4 Immature Gran % (Auto) 0.200 Neut % (Auto) 86.1 H Lymph % (Auto) 7.5 L [place] % (Auto) 6.0 Eos % (Auto) 0.1 Baso % (Auto) 0.1 Absolute Neuts (auto) 15.6 H Absolute Lymphs (auto) 1.36 Total Counted Not Reportable Sodium Potassium Chloride Carbon Dioxide Anion Gap BUN Creatinine Estim Creat Clear Calc Est GFR (MDRD) Af Amer Est GFR (MDRD) Non-Af BUN/Creatinine Ratio Glucose Calcium B-Natriuretic Peptide 200.4 H Free T4 0.88 09/23/18 05:23 WBC RBC Hgb Hct MCV MCH MCHC RDW RDW Differential Plt Count MPV Immature Gran % (Auto) Neut % (Auto) Lymph % (Auto) [place] % (Auto) Eos % (Auto) Baso % (Auto) Absolute Neuts (auto) Absolute Lymphs (auto) Total Counted Sodium 141 Potassium 3.5 Chloride 103 Carbon Dioxide 28.0 Anion Gap 10 BUN 35 H Creatinine 1.53 H Estim Creat Clear Calc 39.60 Est GFR (MDRD) Af Amer 58 L Est GFR (MDRD) Non-Af 48 L BUN/Creatinine Ratio 22.9 H Glucose 189 H Calcium 8.9 B-Natriuretic Peptide Free T4 POC Glucose 09/23/18 09/22/18 09/22/18 06:53 16:31 11:12 POC Glucose 177 H 256 H 203 H Medical Necessity - Tobacco Use Smoking Status: Former smoker Assessment/Plan All Active Problems Atrial fibrillation with RVR (Acute) Hypertensive urgency (Acute) Rhinovirus (Acute) Severe sepsis (Acute) Acute respiratory insufficiency (Acute) Chest tightness (Resolved) Left wrist pain (Resolved) Syncopal episodes (Resolved) Ureteral calculus, right (Resolved) RECOMMENDATIONS: 1. Continue bronchodilators and steroid therapy 2. Okay to continue PEP therapy 3. Continue baseline nocturnal CPAP therapy 4. Wean oxygen as tolerated 5. Consider discontinuation of cough suppressants 6. Rate control per cardiology IMPRESSIONS: 1. Acute hypoxic respiratory insufficiency secondary to bronchiectasis exacerbation secondary to acute rhinovirus Patient failed outpatient therapy. Patient is currently off of antibiotics. Patient did receive IV Solu-Medrol for several days, but is currently on oral prednisone therapy. My personal review of the CT scan is more consistent with bronchiectasis, which may be secondary to uncontrolled asthma. Wean oxygen as tolerated. Patient will need a walking oximetry prior to discharge. Respiratory status should improve with transition to normal sinus rhythm. Wean oxygen as tolerated. Patient may require supplemental oxygen on discharge transiently given viral etiology. Prednisone will need to be weaned over the next 12-14 days. 2. A. fib with RVR/hypertensive urgency Cardiology is currently following. Patient is on multiple rate control medications at this time. Patient is currently on an amiodarone drip, but has significant dilation of the left atrium, so it is unclear if he will continue in normal sinus rhythm. 3. Type 2 diabetes mellitus/hyperlipidemia/rheumatoid arthritis/depression/BPH/GERD/advanced age Complicates care, management, recovery and prognosis. Okay to continue with baseline medications. May consider holding Remicade for short period of time to allow for resolution of acute viral issues. Code Visit Inpatient E&M: 42052 [facility] Hosp L3
[2018-09-23] MEDS: Insulin Lispro 100 UNIT/ML INSULN.PEN SC ×4 (08:30→21:22)
[2018-09-23] MEDS: Glimepiride 2 MG Tablet PO (08:39)
[2018-09-23] MEDS: Calcium (Elemental) 500 MG Tablet PO (08:39)
[2018-09-23] MEDS: predniSONE 10 MG Tablet 30 MG PO (08:39)
[2018-09-23] MEDS: Multivitamins,Ther W-Minerals Tablet 1 TABLET PO (08:40)
[2018-09-23] MEDS: sulfaSALAzine 500 MG Tablet PO ×3 (08:40→16:56)
--- NOTE | 2018-09-23 10:24 | PCM.PN.CARD ---
Subjectve: Patient doing very well this morning. Patient converted to normal sinus rhythm last evening with second dose of amiodarone drip. Remained in sinus rhythm overnight. Telemetry shows normal sinus rhythm. IV amiodarone infusing. Patient reports feeling much better since admission but still not back to normal. Still has productive cough and audible gurgling. Objective: Vital Signs Temp Pulse Resp BP Pulse Ox 97.9 F 69 13 104/67 94 09/23/18 07:00 09/23/18 08:00 09/23/18 08:00 09/23/18 08:00 09/23/18 08:00 Oxygen Flow Rate (L/min) 3 Oxygen Delivery Method Room Air Weight: 210 lb 8.663 oz Body Mass Index (BMI) 33.0 Finger Stick Blood Glucose 151 Intake and Output for Last 24 Hours 09/21/18 09/22/18 09/23/18 23:59 23:59 23:59 Intake Total 3080.9 / 3080.9 1869.4 / 1869.4 542 / 542 Output Total 1800 / 1800 3850 / 3850 450 / 450 Balance 1280.9 / 1280.9 -1980.6 / -1980.6 92 / 92 General: Awake, Alert, Oriented x 3 HEENT: PERRL, EOMI, Sclera Non Icteric Neck: Supple, Good ROM, No Lymph Node Enlargement Lungs: Clear to auscultation, Rhonchi Cardiovascular: Regular Rhythm, Normal S1, Normal S2, No Murmurs, No Rubs, No Gallops 09/23/18 05:23: WBC 18.1 H, RBC 4.41 L, Hgb 13.0, Hct 39.5 L, MCV 89.6, MCH 29.5, MCHC 32.9, RDW 15.5 H, RDW Differential 50.4 H, Plt Count 218, MPV 11.4, Immature Gran % (Auto) 0.200, Neut % (Auto) 86.1 H, Lymph % (Auto) 7.5 L, [place] % (Auto) 6.0, Eos % (Auto) 0.1, Baso % (Auto) 0.1, Absolute Neuts (auto) 15.6 H, Total Counted Not Reportable 09/23/18 05:23: Sodium 141, Potassium 3.5, Chloride 103, Carbon Dioxide 28.0, Anion Gap 10, BUN 35 H, Creatinine 1.53 H, Est GFR (MDRD) Af Amer 58 L, Est GFR (MDRD) Non-Af 48 L, BUN/Creatinine Ratio 22.9 H, Glucose 189 H, Calcium 8.9 Rhythm: EKG: ECHO: Stress Test: Cardiac Cath: PCI: CT Surgery: Holter monitor: EPS: PPM: CXR: Chest CT Scan: Medical Necessity - Tobacco Use Smoking Status: Former smoker Assessment/Plan 1. Atrial fibrillation: Patient presents with what appears to be bronchitis possibly viral in origin, with productive cough, sputum, superimposed upon asthma is a previous baseline. Patient has an elevated white blood cell count, and is being treated with antibiotics and prednisone therapy, as well as antivirals for positive flu. Patient developed atrial fibrillation from sinus rhythm on this admission, with rapid ventricular response. His troponins are negative x3, and his LV function is hyperdynamic with an EF around 75%. At this point I would recommend IV fluid resuscitation to improve his systolic blood pressure, and more likely decrease his heart rate as well. Would hold off on dobutamine echocardiogram until the patient has recovered from his pulmonary issues. Patient converted to normal sinus rhythm with second bolus of IV amiodarone, I would recommend starting him on amiodarone 200 mg p.o. daily and terminating the IV amiodarone once the bag has . In addition we will decrease his Cardizem CD to 180 mg p.o. daily and hold his amlodipine going forward due to hypotension. We will continue Catapres and lisinopril. Regardless of whether the patient converts on his own, we will continue Eliquis therapy for at least one months time. TSH is somewhat on the low side. Recommend checking T4. 2. Hyperlipidemia: LDL is 91 HDL is 44. 3. Asthma: Patient has baseline asthma, which is not responding to prednisone p.o. or antibiotic therapy. Appreciate pulmonary consult. Will defer to pulmonary with respect to his reactive airway disease. Patient had no adverse events from a pulmonary standpoint with IV Lopressor, may consider dual Cardizem and beta-andrey therapy going forward should this be needed. 4. Thank you very much for the opportunity to participate in the cardiac care of your patient. Code Visit Inpatient E&M: 03134 Subs Hosp L2
[2018-09-23] MEDS: Amiodarone 200 MG Tablet PO (10:29)
[2018-09-23] MEDS: Lisinopril 40 MG Tablet PO (10:30)
[2018-09-23] MEDS: DULoxetine Hcl 60 MG Capsule PO (10:30)
[2018-09-23] MEDS: Finasteride 5 MG Tablet PO (10:30)
[2018-09-23] MEDS: guaiFENesin 1,200 MG Tablet 1200 MG PO ×2 (10:30→21:15)
[2018-09-23] MEDS: Chlorthalidone 50 MG Tablet PO (10:30)
[2018-09-23] MEDS: Polyethylene Glycol 3350 17 GM PACKET PO (10:30)
[2018-09-23] MEDS: APIXABAN 5 MG TABLET PO ×2 (10:30→21:15)
[2018-09-23] MEDS: cloNIDine HCl 0.2 MG Tablet PO ×2 (10:30→21:15)
[2018-09-23] MEDS: Fluticasone 0.05% 1 SPRAY NASAL.SRY NASAL ×2 (10:30→21:16)
[2018-09-23] MEDS: Gabapentin 600 MG Tablet PO ×2 (10:30→21:15)
[2018-09-23] MEDS: dilTIAZem CD 180 MG Capsule PO (10:33)
[2018-09-23] MEDS: Ipratropium/Albuterol Sulfate 3 ML AMPUL.NEB INHALATION ×4 (10:52→23:23)
[2018-09-23] MEDS: Pantoprazole Sodium 20 MG Tablet PO ×2 (11:09→21:15)
[2018-09-23] MEDS: Omega-3 Acid Ethyl Esters 1 GM Capsule PO (11:09)
[2018-09-23 11:30] LABS: Bedside Glucose 363 mg/dL (70-110)
--- NOTE | 2018-09-23 11:54 | PCM.PROGNOTE ---
Subjective: The patient is a 73-year-old male admitted to the hospital with rhinovirus and acute exacerbation of asthma but later went into atrial fibrillation with rapid ventricular response. He converted to normal sinus rhythm on 09/22/2018 at approximately 4 PM. He is currently on clonidine diltiazem and amiodarone for rate control. All events of the past 24 hours of been reviewed. Has been afebrile since admission. Vital signs are stable. He is 92% on room air today. All lab was personally reviewed. The white blood cell count is 18.1 but he has been on high-dose steroids. Hemoglobin and platelets are within normal limits. Electrolytes are within normal limits and the BUN is 35 with a creatinine of 1.53, up from 0.96 on 09/19/2018. Blood sugars are not adequately controlled-due to high-dose steroids Microbiology: Positive for rhinovirus on the respiratory panel, blood cultures negative. Radiology-no infiltrates on any chest x-rays. - Physical Exam General: Alert, Oriented x3, Cooperative, No apparent distress HEENT: Atraumatic Oral: No Gingival or Mucosal Lesions/ Ulcerations Neck: Supple, No Nuchal Rigidity Lungs: - - No conversational dyspnea, no accessory muscle use, not tachypneic at rest. He has coarse breath sounds on the left. Cardiovascular: Regular rate, Regular Rhythm, Normal S1, Normal S2, No Gallop Abdomen: Bowel Sounds Present, Soft, Non Tender, Non-Distended, Obese Extremities: No cyanosis Skin: No rashes, No breakdown Neurological: Cranial nerves II-XII grossly intact, Neuro grossly intact Psych/Mental Status: Normal Affect, Appropriate Vital Signs Temp Pulse Resp BP Pulse Ox 98.3 F 105 H 19 H 133/75 H 92 09/23/18 10:00 09/23/18 11:12 09/23/18 11:00 09/23/18 11:00 09/23/18 11:00 Oxygen Flow Rate (L/min) 3 Oxygen Delivery Method Room Air Weight: 210 lb 8.663 oz Body Mass Index (BMI) 33.0 Finger Stick Blood Glucose 151 Intake and Output for Last 24 Hours 09/21/18 09/22/18 09/23/18 23:59 23:59 23:59 Intake Total 3080.9 / 3080.9 1869.4 / 1869.4 542 / 542 Output Total 1800 / 1800 3850 / 3850 450 / 450 Balance 1280.9 / 1280.9 -1980.6 / -1979.6 92 / 92 Microbiology Past 72 Hours 09/17/18 20:00 Blood Culture - Final Blood Culture (Wb) - Anticubital Left No growth in 5 days. 09/17/18 21:20 Blood Culture - Final Blood Culture (Wb) - Anticubital Right No growth in 5 days. Laboratory Tests Past 24 Hrs 09/22/18 09/23/18 09/23/18 05:44 05:23 05:23 WBC 18.1 H RBC 4.41 L Hgb 13.0 Hct 39.5 L MCV 89.6 MCH 29.5 MCHC 32.9 RDW 15.5 H RDW Differential 50.4 H Plt Count 218 MPV 11.4 Immature Gran % (Auto) 0.200 Neut % (Auto) 86.1 H Lymph % (Auto) 7.5 L [place] % (Auto) 6.0 Eos % (Auto) 0.1 Baso % (Auto) 0.1 Absolute Neuts (auto) 15.6 H Absolute Lymphs (auto) 1.36 Total Counted Not Reportable Sodium 141 Potassium 3.5 Chloride 103 Carbon Dioxide 28.0 Anion Gap 10 BUN 35 H Creatinine 1.53 H Estim Creat Clear Calc 39.60 Est GFR (MDRD) Af Amer 58 L Est GFR (MDRD) Non-Af 48 L BUN/Creatinine Ratio 22.9 H Glucose 189 H Calcium 8.9 Free T4 0.88 POC Glucose 09/23/18 09/23/18 09/22/18 11:25 06:53 16:31 POC Glucose 363 H 177 H 256 H Medical Necessity - Tobacco Use Smoking Status: Former smoker Assessment/Plan All Active Problems Atrial fibrillation with RVR (Acute) Hypertensive urgency (Acute) Rhinovirus (Acute) Severe sepsis (Acute) Acute respiratory insufficiency (Acute) Chest tightness (Resolved) Left wrist pain (Resolved) Syncopal episodes (Resolved) Ureteral calculus, right (Resolved) Impressions 1. Acute exacerbation of asthma secondary to rhinovirus 2. Atrial fibrillation with rapid ventricular response-converted to normal sinus rhythm on 09/22/2018 at approximately 4 PM 3. Borderline low potassium 4. Severe sepsis at admission 5. Acute hypoxic respiratory insufficiency Continue apixaban, amiodarone and diltiazem Permits potassium to keep the K around 4. Mag was 2.0 on 09/22/2018. Converted to prednisone and will taper over 10 days. possible DC in the next 24-48H Code Visit Inpatient E&M: 47981 Subs Hosp L2
[2018-09-23] MEDS: 0.9% NaCl Peripheral Flush Adult/Peds IV (14:17)
[2018-09-23 18:11] LABS: Bedside Glucose 316 mg/dL (70-110)
[2018-09-23] MEDS: Atorvastatin Calcium 20 MG Tablet PO (21:15)
[2018-09-23] MEDS: Omega-3 Acid Ethyl Esters 1 GM Capsule 2 GM PO (21:15)
[2018-09-23] MEDS: Loratadine 10 MG Tablet PO (21:15)
[2018-09-23 21:31] LABS: Bedside Glucose 312 mg/dL (70-110)
[2018-09-24] VITALS (15 sets, daily range): BP systolic 114–151; BP diastolic 71–84; PULSE 83–121; RESP 18–24; TEMP 36.6–37.1; O2SAT 88–98
[2018-09-24] MEDS: Ipratropium Bromide 0.06% NASAL SPRAY 2 SPRAY NASAL ×3 (06:13→21:01)
[2018-09-24] MEDS: BENZOCAINE/MENTHOL 1 LOZENGE 2 LOZENGE MUCOUS MEM ×2 (06:17→21:07)
[2018-09-24 07:05] LABS: Bedside Glucose 111 mg/dL (70-110)
[2018-09-24] MEDS: Ipratropium/Albuterol Sulfate 3 ML AMPUL.NEB INHALATION ×5 (07:09→19:10)
[2018-09-24 07:15] LABS: Absolute Lymphocyte Count 2.01 X10^3/ul (0.83-4.51); Absolute Neutrophil Count 17.5 X10^3/uL (2.0-7.7); Basophil# 0.01 X10^3/uL; Eosinophil# 0.01 X10^3/uL; Hematocrit 39.8 % (40-54); Hemoglobin 13.4 g/dl (13.0-16.5); Lymphocyte # 2.01 X10^3/ul (4.0); Lymphocyte % 9.6 % (19-41); Mean Corp Hgb Conc 33.7 g/gl (32-36); Mean Platelet Vol. 10.8 fl (6.2-12.0); Monocyte# 1.36 X10^3/uL; Monocyte% 6.5 % (0-10); Neutrophil # 17.54 X10^3/uL (2.7-7.7); Neutrophil % 83.7 % (47-70); POSITIVE COUNT NO; POSITIVE DIFFERENTIAL NO; POSITIVE MORPHOLOGY NO; Platelet Count 221 K/mm3 (150-450); RBC Distribution Width CV 15.7 % (11.6-14.6); RBC Distribution Width SD 50.3 fl (35.1-43.9); Red Blood Count 4.47 M/mm3 (4.6-6.2)
[2018-09-24 07:27] LABS: Anion Gap 8 (5-15); BUN 36 mg/dL (7-18); BUN/Creat Ratio 24.8 RATIO (10-20); Calcium,Total 8.9 mg/dL (8.5-10.1); Chloride 105 mmol/L (98-107); Creatinine, Serum 1.45 mg/dL (0.70-1.30); EST Glomerular Filtration Rate 51 mL/min (>60); Est Glom Filt Rate - Afr Amer 61 mL/min (>60); Estimated Creatinine Clearance 41.79 ml/min; Glucose 118 mg/dL (74-106); Potassium 3.7 mmol/L (3.5-5.1); Sodium Level 137 mmol/L (136-145)
--- NOTE | 2018-09-24 07:57 | PN_ITS ---
Subjective: Patient did okay overnight. Patient was able to tolerate home CPAP without difficulty. Patient continues to report a productive cough, but proximal systems appear to be tolerated better. Patient was on room air for short period of time, but had to be placed on 2 L nasal cannula secondary to desaturation to 88% this morning. - Physical Exam General: Alert, Oriented x3, Cooperative, No apparent distress, - - No conversational dyspnea appreciated. Obese. Some paroxysmal cough noted during examination HEENT: Atraumatic, PERRLA, EOMI, Normocephalic, - - No scleral icterus or injection noted. Oral: Moist Mucosa, No Gingival or Mucosal Lesions/ Ulcerations Neck: Supple, No JVD, No Nodes, Trachea Midline Lungs: No rales, Diminished, Rhonchi, Wheezes, - - Symmetric expansion. No dullness to percussion. Cardiovascular: Regular Rhythm, Normal S1, Normal S2, No murmurs, No rub noted, No Gallop, Tachycardic, - - Sinus tachycardia noted on telemetry Abdomen: Bowel Sounds Present, Soft, Non Tender, Non-Distended, Obese Extremities: No clubbing, No cyanosis, No edema, Capillary Refill Less than 3 Seconds Skin: No rashes, No breakdown Musculoskeletal: No Tenderness to Palpation of Joints or Extremities Lymphatic: No Cervical, Supraclavicular, or Inguinal Adenopathy Neurological: Cranial nerves II-XII grossly intact, Neuro grossly intact, Motor Exam 5/5 strength throughout Psych/Mental Status: Alert and oriented to time, place, person, mood and affect Vital Signs Temp Pulse Resp BP Pulse Ox 36.8 C 111 H 20 H 114/82 H 88 09/24/18 03:05 09/24/18 07:10 09/24/18 07:10 09/24/18 03:05 09/24/18 07:10 Oxygen Flow Rate (L/min) 2 Oxygen Delivery Method Room Air Weight: 95.5 kg Body Mass Index (BMI) 33.0 Finger Stick Blood Glucose 151 Intake and Output for Last 24 Hours 09/22/18 09/23/18 09/24/18 23:59 23:59 23:59 Intake Total 1869.4 / 1869.4 1400.1 / 1400.1 0 / 0 Output Total 3850 / 3850 1200 / 1200 Balance -1980.6 / -1979.6 200.1 / 200.1 0 / 0 Microbiology Past 72 Hours 09/17/18 20:00 Blood Culture - Final Blood Culture (Wb) - Anticubital Left No growth in 5 days. 09/17/18 21:20 Blood Culture - Final Blood Culture (Wb) - Anticubital Right No growth in 5 days. Laboratory Tests Past 24 Hrs 09/24/18 09/24/18 07:02 07:02 WBC 21.0 H RBC 4.47 L Hgb 13.4 Hct 39.8 L MCV 89.0 MCH 30.0 MCHC 33.7 RDW 15.7 H RDW Differential 50.3 H Plt Count 221 MPV 10.8 Immature Gran % (Auto) 0.200 Neut % (Auto) 83.7 H Lymph % (Auto) 9.6 L [place] % (Auto) 6.5 Eos % (Auto) 0.0 Baso % (Auto) 0.0 Absolute Neuts (auto) 17.5 H Absolute Lymphs (auto) 2.01 Total Counted Not Reportable Sodium 137 Potassium 3.7 Chloride 105 Carbon Dioxide 24.0 Anion Gap 8 BUN 36 H Creatinine 1.45 H Estim Creat Clear Calc 41.79 Est GFR (MDRD) Af Amer 61 Est GFR (MDRD) Non-Af 51 L BUN/Creatinine Ratio 24.8 H Glucose 118 H Calcium 8.9 POC Glucose 09/24/18 09/23/18 09/23/18 07:01 21:10 16:54 POC Glucose 111 H 312 H 316 H 09/23/18 11:25 POC Glucose 363 H Medical Necessity - Tobacco Use Smoking Status: Former smoker Assessment/Plan All Active Problems Atrial fibrillation with RVR (Acute) Hypertensive urgency (Acute) Rhinovirus (Acute) Severe sepsis (Acute) Acute respiratory insufficiency (Acute) Chest tightness (Resolved) Left wrist pain (Resolved) Syncopal episodes (Resolved) Ureteral calculus, right (Resolved) RECOMMENDATIONS: 1. Continue bronchodilators and steroid therapy 2. Continue PEP therapy 3. Continue baseline nocturnal CPAP therapy 4. Walking oximetry prior to discharge 5. Patient will need to follow-up with nurse practitioner in our office 2 weeks after discharge 6. Rate control per cardiology IMPRESSIONS: 1. Acute hypoxic respiratory insufficiency secondary to bronchiectasis exacerbation secondary to acute rhinovirus Patient failed outpatient therapy. Patient is currently off of antibiotics. Patient did receive IV Solu-Medrol for several days, but is currently on oral prednisone therapy. My personal review of the CT scan is more consistent with bronchiectasis, which may be secondary to uncontrolled asthma. Wean oxygen as tolerated. Clinical suspicion for need of supplemental oxygen on discharge. Will obtain a walking oximetry. Leukocytosis on labs likely secondary to steroid therapy. Will wean steroids over the next 12-14 days following discharge. Patient should follow-up in our office 2 weeks after discharge with nurse practitioner. Patient is requesting transfer of service from Dr. Lange. 2. A. fib with RVR/hypertensive urgency Cardiology is currently following. Patient is on multiple rate control medications at this time. Patient is currently off amiodarone drip, but has significant dilation of the left atrium, so it is unclear if he will continue in normal sinus rhythm. 3. Type 2 diabetes mellitus/hyperlipidemia/rheumatoid arthritis /depression/BPH/GERD/advanced age Complicates care, management, recovery and prognosis. Okay to continue with baseline medications. Patient may require supplemental sliding scale insul in while on steroid therapy at discharge. Code Visit Inpatient E&M: 04752 Subs Hosp L2
[2018-09-24] MEDS: guaiFENesin 1,200 MG Tablet 1200 MG PO ×2 (09:56→21:04)
[2018-09-24] MEDS: Polyethylene Glycol 3350 17 GM PACKET PO (09:56)
[2018-09-24] MEDS: sulfaSALAzine 500 MG Tablet PO ×3 (09:56→17:05)
[2018-09-24] MEDS: dilTIAZem CD 180 MG Capsule PO (09:56)
[2018-09-24] MEDS: Multivitamins,Ther W-Minerals Tablet 1 TABLET PO (09:56)
[2018-09-24] MEDS: DULoxetine Hcl 60 MG Capsule PO (09:57)
[2018-09-24] MEDS: APIXABAN 5 MG TABLET PO ×2 (09:57→21:04)
[2018-09-24] MEDS: Glimepiride 2 MG Tablet PO (09:57)
[2018-09-24] MEDS: Finasteride 5 MG Tablet PO (09:57)
[2018-09-24] MEDS: Omega-3 Acid Ethyl Esters 1 GM Capsule PO (09:57)
[2018-09-24] MEDS: Pantoprazole Sodium 20 MG Tablet PO ×2 (09:57→21:05)
[2018-09-24] MEDS: Chlorthalidone 50 MG Tablet PO (09:57)
[2018-09-24] MEDS: Lisinopril 40 MG Tablet PO (09:57)
[2018-09-24] MEDS: Amiodarone 200 MG Tablet PO (09:57)
[2018-09-24] MEDS: Fluticasone 0.05% 1 SPRAY NASAL.SRY NASAL ×2 (09:58→21:01)
[2018-09-24] MEDS: cloNIDine HCl 0.2 MG Tablet PO ×2 (09:58→21:05)
[2018-09-24] MEDS: predniSONE 10 MG Tablet 30 MG PO (09:58)
[2018-09-24] MEDS: Gabapentin 600 MG Tablet PO ×2 (10:56→21:04)
[2018-09-24] MEDS: Calcium (Elemental) 500 MG Tablet PO (10:56)
[2018-09-24] MEDS: Insulin Lispro 100 UNIT/ML INSULN.PEN SC ×3 (11:07→21:01)
[2018-09-24] MEDS: 0.9% NaCl Peripheral Flush Adult/Peds IV (11:08)
[2018-09-24 11:21] LABS: Bedside Glucose 174 mg/dL (70-110)
--- NOTE | 2018-09-24 11:51 | PCM.PN.HOSP ---
Patient Problems: Active and Suspected Problems Atrial fibrillation with RVR (Acute) Rhinovirus (Acute) Severe sepsis (Acute) Acute respiratory insufficiency (Acute) Subjective: Still short of breath. Coughing up some phlegm. Vitals/I&O's: Vital Signs Temp Pulse Resp BP Pulse Ox 36.6 C 121 H 18 134/78 H 98 09/24/18 09:05 09/24/18 11:24 09/24/18 09:05 09/24/18 09:05 09/24/18 09:05 Oxygen Flow Rate (L/min) 2 Oxygen Delivery Method Nasal Cannula Weight: 95.5 kg Body Mass Index (BMI) 33.0 Finger Stick Blood Glucose 151 Intake and Output for Last 24 Hours 09/22/18 09/23/18 09/24/18 23:59 23:59 23:59 Intake Total 1869.4 / 1869.4 1400.1 / 1400.1 480 / 480 Output Total 3850 / 3850 1200 / 1200 Balance -1980.6 / -1979.6 200.1 / 200.1 480 / 480 General: Alert, Cooperative, No apparent distress HEENT: Atraumatic, Normocephalic Oral: Moist Mucosa, No Gingival or Mucosal Lesions/ Ulcerations Neck: No Nodes, Thyroid Normal Size and Texture Lungs: Diminished, - - upper resp wheezes Cardiovascular: Normal S1, Normal S2, Tachycardic Abdomen: Bowel Sounds Present, Soft, Non Tender Extremities: No edema, Capillary Refill Less than 3 Seconds, No Calf Tenderness Skin: No rashes, No breakdown Psych/Mental Status: Normal Affect, Appropriate Microbiology Past 72 Hours 09/17/18 20:00 Blood Culture (Wb) - Anticubital Left Blood Culture - Final No growth in 5 days. 09/17/18 21:20 Blood Culture (Wb) - Anticubital Right Blood Culture - Final No growth in 5 days. Laboratory Results 09/23/18 16:54: POC Glucose 316 H 09/23/18 21:10: POC Glucose 312 H 09/24/18 07:01: POC Glucose 111 H 09/24/18 07:02: WBC 21.0 H, RBC 4.47 L, Hgb 13.4, Hct 39.8 L, MCV 89.0, MCH 30.0, MCHC 33.7, RDW 15.7 H, RDW Differential 50.3 H, Plt Count 221, MPV 10.8, Immature Gran % (Auto) 0.200, Neut % (Auto) 83.7 H, Lymph % (Auto) 9.6 L, [place] % (Auto) 6.5, Eos % (Auto) 0.0, Baso % (Auto) 0.0, Absolute Neuts (auto) 17.5 H, Absolute Lymphs (auto) 2.01, Total Counted Not Reportable 09/24/18 07:02: Sodium 137, Potassium 3.7, Chloride 105, Carbon Dioxide 24.0, Anion Gap 8, BUN 36 H, Creatinine 1.45 H, Estim Creat Clear Calc 41.79, Est GFR (MDRD) Af Amer 61, Est GFR (MDRD) Non-Af 51 L, BUN/Creatinine Ratio 24.8 H, Glucose 118 H, Calcium 8.9 09/24/18 11:06: POC Glucose 174 H Current Medications Acetaminophen (Tylenol) 650 mg PO Q6H PRN PRN PRN Reason: HEADACHE Last Admin: 09/22/18 05:50 Dose: 650 mg Albuterol Sulfate (Ventolin Aerosols) 2.5 mg INHALATION Q2H PRN PRN PRN Reason: SHORTNESS OF BREATH Albuterol/Ipratropium (Duoneb) 3 ml INHALATION Q4HWA.RT [facility] Last Admin: 09/24/18 10:40 Dose: 3 ml Amiodarone HCl (Cordarone) 200 mg PO DAILY [facility] Last Admin: 09/24/18 09:57 Dose: 200 mg Amlodipine Besylate (Norvasc) 10 mg PO DAILY [facility] Last Admin: 09/23/18 09:49 Dose: Not Given Apixaban (Eliquis) 5 mg PO BID [facility] Last Admin: 09/24/18 09:57 Dose: 5 mg Atorvastatin Calcium (Lipitor) 20 mg PO QHS [facility] Last Admin: 09/23/18 21:15 Dose: 20 mg Benzonatate (Tessalon [place]) 100 mg PO TID PRN PRN PRN Reason: COUGH Last Admin: 09/22/18 05:50 Dose: 100 mg Calcium Carbonate (Os-Abiel 500) 500 mg PO DAILY@0800 [facility] Last Admin: 09/24/18 10:56 Dose: 500 mg Chlorthalidone (Hygroton) 50 mg PO DAILY [facility] Last Admin: 09/24/18 09:57 Dose: 50 mg Clonidine (Catapres) 0.2 mg PO BID [facility] Last Admin: 09/24/18 09:58 Dose: 0.2 mg Diltiazem HCl (Cardizem Cd) 180 mg PO DAILY [facility] Last Admin: 09/24/18 09:56 Dose: 180 mg Duloxetine HCl (Cymbalta) 60 mg PO DAILY [facility] Last Admin: 09/24/18 09:57 Dose: 60 mg Finasteride (Proscar) 5 mg PO DAILY [facility] Last Admin: 09/24/18 09:57 Dose: 5 mg Fluticasone Propionate (Flonase Nasal [place]) 1 spray NASAL BID [facility] Last Admin: 09/24/18 09:58 Dose: 1 spray Gabapentin (Neurontin) 600 mg PO BID [facility] Last Admin: 09/24/18 10:56 Dose: 600 mg [facility] Last Admin: 09/24/18 09:57 Dose: 2 mg Guaifenesin (Robitussin) 10 ml PO Q4H PRN PRN PRN Reason: COUGH Last Admin: 09/19/18 14:20 Dose: 10 ml Guaifenesin (Mucinex) 1,200 mg PO BID [facility] Last Admin: 09/24/18 09:56 Dose: 1,200 mg Hydralazine HCl (Apresoline Iv) 10 mg IV Q4H PRN PRN PRN Reason: BLOOD PRESSURE Last Admin: 09/22/18 04:21 Dose: 10 mg Hydrocodone Bit/Homatropine Methylb (Hycodan Syrup) 5 ml PO QHS [facility] Last Admin: 09/23/18 21:16 Dose: 5 ml Insulin Human Lispro (Humalog Kwikpen (Bkc)) 0 unit SC [facility]; Protocol Last Admin: 09/24/18 11:07 Dose: 2 u Ipratropium [place] (Atrovent Nasal [place] (G)) 2 spray NASAL TID [facility] Last Admin: 09/24/18 06:13 Dose: 2 spray Lisinopril (Zestril) 40 mg PO DAILY [facility] Last Admin: 09/24/18 09:57 Dose: 40 mg Loratadine (Claritin) 10 mg PO QHS [facility] Last Admin: 09/23/18 21:15 Dose: 10 mg Magnesium Hydroxide (Milk Of Magnesia) 30 ml PO DAILY PRN PRN PRN Reason: Constipation Metformin HCl (Glucophage) [facility] Last Admin: 09/18/18 17:05 Dose: 1,000 mg Multivitamins/Minerals (Multivitamin With Minerals) 1 tablet PO DAILY@0800 [facility] Last Admin: 09/24/18 09:56 Dose: 1 tablet [id number] Ethyl Esters (Lovaza) 1 gm PO DAILY [facility] Last Admin: 09/24/18 09:57 Dose: 1 gm [id number] Ethyl Esters (Lovaza) 2 gm PO QHS [facility] Last Admin: 09/23/18 21:15 Dose: 2 gm Pantoprazole Sodium (Protonix) 20 mg PO BID [facility] Last Admin: 09/24/18 09:57 Dose: 20 mg Polyethylene Glycol (Miralax) 17 gm PO DAILY [facility] Last Admin: 09/24/18 09:56 Dose: 17 gm Potassium Chloride (K-Dur) [facility] Last Admin: 09/24/18 09:56 Dose: 20 meq Prednisone () 30 mg PO DAILY@0800 [facility]; Taper Stop: 10/03/18 07:59 Last Admin: 09/24/18 09:58 Dose: 30 mg Sodium Chloride () 5 - 15 ml IV UD PRN PRN Reason: SALINE FLUSH Last Admin: 09/24/18 11:08 Dose: 10 ml Sulfasalazine (Azulfidine) 500 mg PO [facility] Last Admin: 09/24/18 09:56 Dose: 500 mg Throat Lozenges (Cepacol Sore Throat Lozenge) 2 lozenge MUCOUS MEM Q2H PRN PRN PRN Reason: SORE THROAT Last Admin: 09/24/18 06:17 Dose: 2 lozenge Zolpidem Tartrate (Ambien (Generic)) 5 mg PO QHS PRN PRN PRN Reason: SLEEP Last Admin: 09/20/18 22:02 Dose: 5 mg Medical Necessity - Tobacco Use Smoking Status: Former smoker Assessment/Plan All Active Problems Atrial fibrillation with RVR (Acute) Hypertensive urgency (Acute) Rhinovirus (Acute) Severe sepsis (Acute) Acute respiratory insufficiency (Acute) Chest tightness (Resolved) Left wrist pain (Resolved) Syncopal episodes (Resolved) Ureteral calculus, right (Resolved) 1. Acute hypoxic respiratory insufficiency Did drop down to 89% Secondary to acute rhinovirus bronchitis, bronchiectasis and asthma Continue with steroids, 12-14 day taper Back on oxygen. follow up with Dr. Modi et. al., as outpt 2. Severe sepsis Present on admission Patient met sepsis criteria on admission but also had lactic acidosis Improving Secondary to rhinovirus 3. Acute rhinovirus infection Resolving 4. Atrial fibrillation with RVR ongoing Amio 200, Dilt 180 Echo with EF 75% Cardiology following 5. Acute exacerbation of bronchiectasis pulm on consult. Discussed with the patient's at bedside. Code Visit Inpatient E&M: 38221 Subs Hosp L2
--- NOTE | 2018-09-24 11:55 | PN_ITS ---
Patient Problems: Active and Suspected Problems Atrial fibrillation with RVR (Acute) Rhinovirus (Acute) Severe sepsis (Acute) Acute respiratory insufficiency (Acute) Subjective: Still short of breath. Coughing up some phlegm. Vitals/I&O's: Vital Signs Temp Pulse Resp BP Pulse Ox 36.6 C 121 H 18 134/78 H 98 09/24/18 09:05 09/24/18 11:24 09/24/18 09:05 09/24/18 09:05 09/24/18 09:05 Oxygen Flow Rate (L/min) 2 Oxygen Delivery Method Nasal Cannula Weight: 95.5 kg Body Mass Index (BMI) 33.0 Finger Stick Blood Glucose 151 Intake and Output for Last 24 Hours 09/22/18 09/23/18 09/24/18 23:59 23:59 23:59 Intake Total 1869.4 / 1869.4 1400.1 / 1400.1 480 / 480 Output Total 3850 / 3850 1200 / 1200 Balance -1980.6 / -1979.6 200.1 / 200.1 480 / 480 General: Alert, Cooperative, No apparent distress HEENT: Atraumatic, Normocephalic Oral: Moist Mucosa, No Gingival or Mucosal Lesions/ Ulcerations Neck: No Nodes, Thyroid Normal Size and Texture Lungs: Diminished, - - upper resp wheezes Cardiovascular: Normal S1, Normal S2, Tachycardic Abdomen: Bowel Sounds Present, Soft, Non Tender Extremities: No edema, Capillary Refill Less than 3 Seconds, No Calf Tenderness Skin: No rashes, No breakdown Psych/Mental Status: Normal Affect, Appropriate Microbiology Past 72 Hours 09/17/18 20:00 Blood Culture (Wb) - Anticubital Left Blood Culture - Final No growth in 5 days. 09/17/18 21:20 Blood Culture (Wb) - Anticubital Right Blood Culture - Final No growth in 5 days. Laboratory Results 09/23/18 16:54: POC Glucose 316 H 09/23/18 21:10: POC Glucose 312 H 09/24/18 07:01: POC Glucose 111 H 09/24/18 07:02: WBC 21.0 H, RBC 4.47 L, Hgb 13.4, Hct 39.8 L, MCV 89.0, MCH 30.0, MCHC 33.7, RDW 15.7 H, RDW Differential 50.3 H, Plt Count 221, MPV 10.8, Immature Gran % (Auto) 0.200, Neut % (Auto) 83.7 H, Lymph % (Auto) 9.6 L, [place] % (Auto) 6.5, Eos % (Auto) 0.0, Baso % (Auto) 0.0, Absolute Neuts (auto) 17.5 H, Absolute Lymphs (auto) 2.01, Total Counted Not Reportable 09/24/18 07:02: Sodium 137, Potassium 3.7, Chloride 105, Carbon Dioxide 24.0, Anion Gap 8, BUN 36 H, Creatinine 1.45 H, Estim Creat Clear Calc 41.79, Est GFR (MDRD) Af Amer 61, Est GFR (MDRD) Non-Af 51 L, BUN/Creatinine Ratio 24.8 H, Glucose 118 H, Calcium 8.9 09/24/18 11:06: POC Glucose 174 H Current Medications Acetaminophen (Tylenol) 650 mg PO Q6H PRN PRN PRN Reason: HEADACHE Last Admin: 09/22/18 05:50 Dose: 650 mg Albuterol Sulfate (Ventolin Aerosols) 2.5 mg INHALATION Q2H PRN PRN PRN Reason: SHORTNESS OF BREATH Albuterol/Ipratropium (Duoneb) 3 ml INHALATION Q4HWA.RT [facility] Last Admin: 09/24/18 10:40 Dose: 3 ml Amiodarone HCl (Cordarone) 200 mg PO DAILY [facility] Last Admin: 09/24/18 09:57 Dose: 200 mg Amlodipine Besylate (Norvasc) 10 mg PO DAILY [facility] Last Admin: 09/23/18 09:49 Dose: Not Given Apixaban (Eliquis) 5 mg PO BID [facility] Last Admin: 09/24/18 09:57 Dose: 5 mg Atorvastatin Calcium (Lipitor) 20 mg PO QHS [facility] Last Admin: 09/23/18 21:15 Dose: 20 mg Benzonatate (Tessalon Perle) 100 mg PO TID PRN PRN PRN Reason: COUGH Last Admin: 09/22/18 05:50 Dose: 100 mg Calcium Carbonate (Os-Abiel 500) 500 mg PO DAILY@0800 [facility] Last Admin: 09/24/18 10:56 Dose: 500 mg Chlorthalidone (Hygroton) 50 mg PO DAILY [facility] Last Admin: 09/24/18 09:57 Dose: 50 mg Clonidine (Catapres) 0.2 mg PO BID [facility] Last Admin: 09/24/18 09:58 Dose: 0.2 mg Diltiazem HCl (Cardizem Cd) 180 mg PO DAILY [facility] Last Admin: 09/24/18 09:56 Dose: 180 mg Duloxetine HCl (Cymbalta) 60 mg PO DAILY [facility] Last Admin: 09/24/18 09:57 Dose: 60 mg Finasteride (Proscar) 5 mg PO DAILY [facility] Last Admin: 09/24/18 09:57 Dose: 5 mg Fluticasone Propionate (Flonase Nasal [place]) 1 spray NASAL BID [facility] Last Admin: 09/24/18 09:58 Dose: 1 spray Gabapentin (Neurontin) 600 mg PO BID [facility] Last Admin: 09/24/18 10:56 Dose: 600 mg [facility] ([facility]l) [facility] Last Admin: 09/24/18 09:57 Dose: 2 mg Guaifenesin (Robitussin) 10 ml PO Q4H PRN PRN PRN Reason: COUGH Last Admin: 09/19/18 14:20 Dose: 10 ml Guaifenesin (Mucinex) 1,200 mg PO BID [facility] Last Admin: 09/24/18 09:56 Dose: 1,200 mg Hydralazine HCl (Apresoline Iv) 10 mg IV Q4H PRN PRN PRN Reason: BLOOD PRESSURE Last Admin: 09/22/18 04:21 Dose: 10 mg Hydrocodone Bit/Homatropine Methylb (Hycodan Syrup) 5 ml PO QHS [facility] Last Admin: 09/23/18 21:16 Dose: 5 ml Insulin Human Lispro (Humalog Kwikpen (Bkc)) 0 unit SC [facility]; Protocol Last Admin: 09/24/18 11:07 Dose: 2 u Ipratropium [place] (Atrovent Nasal [place] (G)) 2 spray NASAL TID [facility] Last Admin: 09/24/18 06:13 Dose: 2 spray Lisinopril (Zestril) 40 mg PO DAILY [facility] Last Admin: 09/24/18 09:57 Dose: 40 mg Loratadine (Claritin) 10 mg PO QHS [facility] Last Admin: 09/23/18 21:15 Dose: 10 mg Magnesium Hydroxide (Milk Of Magnesia) 30 ml PO DAILY PRN PRN PRN Reason: Constipation Metformin HCl (Glucophage) [facility] Last Admin: 09/18/18 17:05 Dose: 1,000 mg Multivitamins/Minerals (Multivitamin With Minerals) 1 tablet PO DAILY@0800 [facility] Last Admin: 09/24/18 09:56 Dose: 1 tablet Wslux-1-Pjsm Ethyl Esters (Lovaza) 1 gm PO DAILY [facility] Last Admin: 09/24/18 09:57 Dose: 1 gm Hsvus-4-Tciy Ethyl Esters (Lovaza) 2 gm PO QHS [facility] Last Admin: 09/23/18 21:15 Dose: 2 gm Pantoprazole Sodium (Protonix) 20 mg PO BID [facility] Last Admin: 09/24/18 09:57 Dose: 20 mg Polyethylene Glycol (Miralax) 17 gm PO DAILY [facility] Last Admin: 09/24/18 09:56 Dose: 17 gm Potassium Chloride (K-Dur) [facility] Last Admin: 09/24/18 09:56 Dose: 20 meq Prednisone () 30 mg PO DAILY@0800 [facility]; Taper Stop: 10/03/18 07:59 Last Admin: 09/24/18 09:58 Dose: 30 mg Sodium Chloride () 5 - 15 ml IV UD PRN PRN Reason: SALINE FLUSH Last Admin: 09/24/18 11:08 Dose: 10 ml [facility]alazine ([facility]ulfidine) [facility] Last Admin: 09/24/18 09:56 Dose: 500 mg Throat Lozenges (Cepacol Sore Throat Lozenge) 2 lozenge MUCOUS MEM Q2H PRN PRN PRN Reason: SORE THROAT Last Admin: 09/24/18 06:17 Dose: 2 lozenge Zolpidem Tartrate (Ambien (Generic)) 5 mg PO QHS PRN PRN PRN Reason: SLEEP Last Admin: 09/20/18 22:02 Dose: 5 mg Medical Necessity - Tobacco Use Smoking Status: Former smoker Assessment/Plan All Active Problems Atrial fibrillation with RVR (Acute) Hypertensive urgency (Acute) Rhinovirus (Acute) Severe sepsis (Acute) Acute respiratory insufficiency (Acute) Chest tightness (Resolved) Left wrist pain (Resolved) Syncopal episodes (Resolved) Ureteral calculus, right (Resolved) 1. Acute hypoxic respiratory insufficiency * Did drop down to 89% * Secondary to acute rhinovirus bronchitis, bronchiectasis and asthma * Continue with steroids, 12-14 day taper * Back on oxygen. * follow up with Dr. Modi et. al., as outpt 2. Severe sepsis * Present on admission * Patient met sepsis criteria on admission but also had lactic acidosis * Improving * Secondary to rhinovirus 3. Acute rhinovirus infection * Resolving 4. Atrial fibrillation with RVR * ongoing * Amio 200, Dilt 180 * Echo with EF 75% * Cardiology following 5. Acute exacerbation of bronchiectasis * pulm on consult. Discussed with the patient's at bedside. Code Visit Inpatient E&M: 21928 Subs Hosp L2
[2018-09-24 17:11] LABS: Bedside Glucose 304 mg/dL (70-110)
--- NOTE | 2018-09-24 20:03 | PCM.PN.CARD ---
Subjectve: The patient appears to been resting comfortably. He still has concerns of cough, shortness of breath, and decreased O2 saturation. Objective: Vital Signs Temp Pulse Resp BP Pulse Ox 98.6 F 97 20 H 114/71 93 09/24/18 15:00 09/24/18 19:10 09/24/18 19:10 09/24/18 15:00 09/24/18 19:13 Oxygen Flow Rate (L/min) 2 Oxygen Delivery Method Nasal Cannula Weight: 210 lb 8.663 oz Body Mass Index (BMI) 33.0 Finger Stick Blood Glucose 151 Intake and Output for Last 24 Hours 09/22/18 09/23/18 09/24/18 23:59 23:59 23:59 Intake Total 1869.4 / 1869.4 1400.1 / 1400.1 960 / 960 Output Total 3850 / 3850 1200 / 1200 Balance -1980.6 / -1980.6 200.1 / 200.1 960 / 960 General: Awake, Alert, Oriented x 3, Cooperative, No Acute Distress HEENT: Atraumatic, Normocephalic, PERRL, EOMI, Sclera Non Icteric Oral: Moist Mucosa Neck: Supple, Good ROM, No JVD Lungs: Rhonchi Cardiovascular: Regular Rhythm, Normal S1, Normal S2 Abdomen: Bowel Sounds Present, Soft, Non Tender Extremities: Trace RLE Edema, Trace LLE Edema Neurological: No Focal Motor or Sensory Deficit Psych/Mental Status: Appropriate 09/24/18 07:02: WBC 21.0 H, RBC 4.47 L, Hgb 13.4, Hct 39.8 L, MCV 89.0, MCH 30.0, MCHC 33.7, RDW 15.7 H, RDW Differential 50.3 H, Plt Count 221, MPV 10.8, Immature Gran % (Auto) 0.200, Neut % (Auto) 83.7 H, Lymph % (Auto) 9.6 L, [place] % (Auto) 6.5, Eos % (Auto) 0.0, Baso % (Auto) 0.0, Absolute Neuts (auto) 17.5 H, Total Counted Not Reportable 09/24/18 07:02: Sodium 137, Potassium 3.7, Chloride 105, Carbon Dioxide 24.0, Anion Gap 8, BUN 36 H, Creatinine 1.45 H, Est GFR (MDRD) Af Amer 61, Est GFR (MDRD) Non-Af 51 L, BUN/Creatinine Ratio 24.8 H, Glucose 118 H, Calcium 8.9 Rhythm: Sinus rhythm Medical Necessity - Tobacco Use Smoking Status: Former smoker Assessment/Plan 1. Atrial fibrillation The patient appears to be remaining in sinus rhythm. He will continue to be monitored. He will continue medical management which has included rate limiting therapy, antiarrhythmic therapy, and anticoagulant therapy. As his respiratory course improves he will be considered for further cardiovascular evaluation which may at some point in time include additional noninvasive evaluation such as an exercise tolerance test/imaging study to evaluate for any other obvious cardiovascular concerns that would be contributing to any symptoms and/or objective findings. 2. Hyperlipidemia The patient will continue lipid-lowering therapy. 3. Acute respiratory tract infection: Rhinovirus The patient will continue to be followed by internal medicine and pulmonology. This note was generated with [employer] dictation software. It may contain incorrect words, spelling, and punctuation that were not noted in checking the note before signing.
[2018-09-24] MEDS: Loratadine 10 MG Tablet PO (21:04)
[2018-09-24] MEDS: Atorvastatin Calcium 20 MG Tablet PO (21:04)
[2018-09-24] MEDS: Omega-3 Acid Ethyl Esters 1 GM Capsule 2 GM PO (21:06)
[2018-09-24 22:06] LABS: Bedside Glucose 304 mg/dL (70-110)
[2018-09-25] VITALS (10 sets, daily range): BP systolic 147–166; BP diastolic 83–97; PULSE 66–114; RESP 18–20; TEMP 36.4–37; O2SAT 86–96
[2018-09-25 06:05] LABS: Absolute Lymphocyte Count 1.52 X10^3/ul (0.83-4.51); Absolute Neutrophil Count 7.6 X10^3/uL (2.0-7.7); Eosinophil# 0.04 X10^3/uL; Eosinophils% 0.4 % (0-5); Hematocrit 35.2 % (40-54); Hemoglobin 11.6 g/dl (13.0-16.5); Lymphocyte # 1.52 X10^3/ul (4.0); Lymphocyte % 15.3 % (19-41); Mean Platelet Vol. 11.2 fl (6.2-12.0); Monocyte# 0.81 X10^3/uL; Monocyte% 8.1 % (0-10); Neutrophil # 7.55 X10^3/uL (2.7-7.7); Neutrophil % 75.9 % (47-70); Platelet Count 189 K/mm3 (150-450); RBC Distribution Width CV 16.1 % (11.6-14.6); RBC Distribution Width SD 52.5 fl (35.1-43.9); Red Blood Count 3.87 M/mm3 (4.6-6.2)
[2018-09-25 06:18] LABS: Anion Gap 9 (5-15); BUN 32 mg/dL (7-18); BUN/Creat Ratio 25.6 RATIO (10-20); Calcium,Total 8.6 mg/dL (8.5-10.1); Chloride 105 mmol/L (98-107); Creatinine, Serum 1.25 mg/dL (0.70-1.30); EST Glomerular Filtration Rate 60 mL/min (>60); Est Glom Filt Rate - Afr Amer 73 mL/min (>60); Estimated Creatinine Clearance 48.47 ml/min; Glucose 132 mg/dL (74-106); Potassium 3.9 mmol/L (3.5-5.1); Sodium Level 143 mmol/L (136-145)
[2018-09-25 06:23] LABS: POSITIVE COUNT NO; POSITIVE DIFFERENTIAL NO; POSITIVE MORPHOLOGY NO
[2018-09-25] MEDS: Ipratropium Bromide 0.06% NASAL SPRAY 2 SPRAY NASAL ×2 (06:43→13:28)
[2018-09-25] MEDS: Ipratropium/Albuterol Sulfate 3 ML AMPUL.NEB INHALATION ×3 (06:43→14:37)
[2018-09-25 07:00] LABS: Bedside Glucose 126 mg/dL (70-110)
--- NOTE | 2018-09-25 08:39 | PCM.PROGNOTE ---
Patient Problems: Active and Suspected Problems Atrial fibrillation with RVR (Acute) Rhinovirus (Acute) Severe sepsis (Acute) Acute respiratory insufficiency (Acute) Subjective: Patient continues to improve from a respiratory standpoint. Patient is reporting less coughing compared to previous, but still paroxysmal in nature. Patient continues to be on 2 L nasal cannula to maintain saturations. Patient was compliant with CPAP therapy overnight. Patient feels subjectively improved compared to yesterday and believes that he is strong enough to go home - Physical Exam General: Alert, Oriented x3, Cooperative, No apparent distress, Well developed, Well nourished, - - Speaking in full sentences. No conversational dyspnea noted. HEENT: Atraumatic, PERRLA, EOMI, Normocephalic, - - No scleral icterus or injection noted. Oral: Moist Mucosa, No Gingival or Mucosal Lesions/ Ulcerations Neck: Supple, No JVD, No Nodes, Trachea Midline Lungs: No rhonchi, No rales, Diminished, Wheezes - Scattered at end exhalation, - - Symmetric expansion. Cardiovascular: Normal S1, Normal S2, Irregular Rate, No rub noted, No Gallop Abdomen: Bowel Sounds Present, Soft, Non Tender, Non-Distended Extremities: No clubbing, No cyanosis, No edema, Capillary Refill Less than 3 Seconds Skin: No rashes, No breakdown Musculoskeletal: No Tenderness to Palpation of Joints or Extremities Lymphatic: No Cervical, Supraclavicular, or Inguinal Adenopathy Neurological: Cranial nerves II-XII grossly intact, Neuro grossly intact, Motor Exam 5/5 strength throughout Psych/Mental Status: Alert and oriented to time, place, person, mood and affect Vital Signs Temp Pulse Resp BP Pulse Ox 36.4 C L 114 H 20 H 156/83 H 96 09/25/18 08:32 09/25/18 08:32 09/25/18 08:32 09/25/18 08:32 09/25/18 08:32 Oxygen Flow Rate (L/min) 2 Oxygen Delivery Method Nasal Cannula Weight: 95.5 kg Body Mass Index (BMI) 33.0 Finger Stick Blood Glucose 151 Intake and Output for Last 24 Hours 09/23/18 09/24/18 09/25/18 23:59 23:59 23:59 Intake Total 1400.1 / 1400.1 1200 / 1200 Output Total 1200 / 1200 Balance 200.1 / 200.1 1200 / 1200 Microbiology Past 72 Hours 09/17/18 20:00 Blood Culture - Final Blood Culture (Wb) - Anticubital Left No growth in 5 days. 09/17/18 21:20 Blood Culture - Final Blood Culture (Wb) - Anticubital Right No growth in 5 days. Laboratory Tests Past 24 Hrs 09/25/18 09/25/18 05:30 05:30 WBC 10.0 RBC 3.87 L Hgb 11.6 L Hct 35.2 L MCV 91.0 MCH 30.0 MCHC 33.0 RDW 16.1 H RDW Differential 52.5 H Plt Count 189 MPV 11.2 Immature Gran % (Auto) 0.300 Neut % (Auto) 75.9 H Lymph % (Auto) 15.3 L [place] % (Auto) 8.1 Eos % (Auto) 0.4 Baso % (Auto) 0.0 Absolute Neuts (auto) 7.6 Absolute Lymphs (auto) 1.52 Total Counted Not Reportable Sodium 143 Potassium 3.9 Chloride 105 Carbon Dioxide 29.0 Anion Gap 9 BUN 32 H Creatinine 1.25 Estim Creat Clear Calc 48.47 Est GFR (MDRD) Af Amer 73 Est GFR (MDRD) Non-Af 60 BUN/Creatinine Ratio 25.6 H Glucose 132 H Calcium 8.6 POC Glucose 09/25/18 09/24/18 09/24/18 06:46 20:59 17:03 POC Glucose 126 H 304 H 304 H 09/24/18 11:06 POC Glucose 174 H Medical Necessity - Tobacco Use Smoking Status: Former smoker Assessment/Plan All Active Problems Atrial fibrillation with RVR (Acute) Hypertensive urgency (Acute) Rhinovirus (Acute) Severe sepsis (Acute) Acute respiratory insufficiency (Acute) Chest tightness (Resolved) Left wrist pain (Resolved) Syncopal episodes (Resolved) Ureteral calculus, right (Resolved) RECOMMENDATIONS: 1. Continue bronchodilators and steroid therapy 2. Continue PEP therapy 3. Continue baseline nocturnal CPAP therapy 4. Walking oximetry prior to discharge 5. Patient will need to follow-up with nurse practitioner in our office 2 weeks after discharge 6. Okay to discharge from a pulmonary perspective with supplemental oxygen if indicated IMPRESSIONS: 1. Acute hypoxic respiratory insufficiency secondary to bronchiectasis exacerbation secondary to acute rhinovirus Patient failed outpatient therapy. Patient is currently off of antibiotics. Patient did receive IV Solu-Medrol for several days, but is currently on oral prednisone therapy. My personal review of the CT scan is more consistent with bronchiectasis, which may be secondary to uncontrolled asthma. Wean oxygen as tolerated. Clinical suspicion for need of supplemental oxygen on discharge. Await walking oximetry. Leukocytosis on labs likely secondary to steroid therapy. Will wean steroids over the next 12-14 days following discharge. Patient should follow-up in our office 2 weeks after discharge with nurse practitioner. Patient is requesting transfer of service from Dr. Lange. 2. A. fib with RVR/hypertensive urgency Cardiology is currently following. Patient is on multiple rate control medications at this time. Patient is currently off amiodarone drip, but has significant dilation of the left atrium, so it is unclear if he will continue in normal sinus rhythm. Patient does remain on Eliquis therapy and denies any bleeding complications 3. Type 2 diabetes mellitus/hyperlipidemia/rheumatoid arthritis/depression/BPH/GERD/advanced age Complicates care, management, recovery and prognosis. Okay to continue with baseline medications. Patient may require supplemental sliding scale insulin while on steroid therapy at discharge. Code Visit Inpatient E&M: 15901 Subs Hosp L2
[2018-09-25] MEDS: Amiodarone 200 MG Tablet PO (08:41)
[2018-09-25] MEDS: Fluticasone 0.05% 1 SPRAY NASAL.SRY NASAL (08:42)
[2018-09-25] MEDS: sulfaSALAzine 500 MG Tablet PO ×2 (08:56→13:27)
[2018-09-25] MEDS: Multivitamins,Ther W-Minerals Tablet 1 TABLET PO (08:56)
[2018-09-25] MEDS: Pantoprazole Sodium 20 MG Tablet PO (08:56)
[2018-09-25] MEDS: predniSONE 10 MG Tablet 30 MG PO (08:56)
[2018-09-25] MEDS: Calcium (Elemental) 500 MG Tablet PO (08:56)
[2018-09-25] MEDS: cloNIDine HCl 0.2 MG Tablet PO (08:56)
[2018-09-25] MEDS: Lisinopril 40 MG Tablet PO (08:56)
[2018-09-25] MEDS: Chlorthalidone 50 MG Tablet PO (08:56)
[2018-09-25] MEDS: guaiFENesin 1,200 MG Tablet 1200 MG PO (08:57)
[2018-09-25] MEDS: dilTIAZem CD 180 MG Capsule PO (08:57)
[2018-09-25] MEDS: Omega-3 Acid Ethyl Esters 1 GM Capsule PO (08:57)
[2018-09-25] MEDS: Gabapentin 600 MG Tablet PO (08:57)
[2018-09-25] MEDS: DULoxetine Hcl 60 MG Capsule PO (08:57)
[2018-09-25] MEDS: Glimepiride 2 MG Tablet PO (08:57)
[2018-09-25] MEDS: APIXABAN 5 MG TABLET PO (08:57)
[2018-09-25] MEDS: Acetaminophen 325 MG Tablet 650 MG PO (08:58)
[2018-09-25] MEDS: BENZOCAINE/MENTHOL 1 LOZENGE 2 LOZENGE MUCOUS MEM (08:58)
[2018-09-25] MEDS: Finasteride 5 MG Tablet PO (09:03)
--- NOTE | 2018-09-25 11:28 | CASEMGMT ---
OCTAVIO CM NOTE: Home O2 qualification testing completed. See findings. Script for O2 obtained from Dr Tilley and faxed to [facility] along with home O2 testing documentation, demographic sheet, and progress note. Jun RAGLAND RN CM
[2018-09-25] MEDS: Insulin Lispro 100 UNIT/ML INSULN.PEN SC (11:35)
[2018-09-25 11:45] LABS: Bedside Glucose 167 mg/dL (70-110)
--- NOTE | 2018-09-25 12:16 | DCINST_ITS ---
- Discharge Diagnoses Current Active Problems: Current Active and Chronic Problems Atrial fibrillation with RVR (Acute) Rhinovirus (Acute) Severe sepsis (Acute) Acute respiratory insufficiency (Acute) You will use the following diet at home:: Calorie/Carbohydrate Controlled (specify 1200, 1400, etc) - 1800, Cardiac Your food should be the consistency of: Regular Your liquids should be the consistency of: Regular/Thin Discharge Activity: Return to Normal Activity Call your doctor if you observe: Fever of 101 or Higher, Shortness of breath, Chest pain Instructions: What Is Atrial Flutter/Atrial Fibrillation?, Your High Blood Pressure Risk Factors, Discharge Instructions for Atrial Fibrillation Additional Instructions: Oxygen continuous 2liters/minute. CPAP QHS. Allergies/Adverse Reactions: Allergies aspirin Allergy (Verified 09/17/18 20:04) Swelling morphine Adverse Reaction (Verified 09/17/18 20:04) UNABLE TO URINATE Medications to take at Discharge Gabapentin [Neurontin] 600 mg PO BID 07/20/13 Finasteride [Proscar] 5 mg PO DAILY 03/14/15 Chlorthalidone [Hygroton] 50 mg PO DAILY 12/24/16 Infliximab-DYYB [Inflectra] 100 mg IV .COMPLEX 02/18/17 Esomeprazole Magnesium [Nexium 24Hr] 22.3 mg PO DAILY 04/15/17 Loratadine [Claritin] 10 mg PO QHS 04/15/17 Albuterol Sulfate [Ventolin Hfa] 2 puff INHALATION BID 01/22/18 Clonidine HCl [Catapres] 0.2 mg PO BID 01/22/18 Glimepiride [Amaryl] 2 mg PO DAILY 01/22/18 Balsalazide Disodium 2,250 mg PO BID 09/17/18 Calcium (Elemental) [Os-Abiel 500] 500 mg PO DAILY@0800 09/17/18 Duloxetine HCl 60 mg PO DAILY 09/17/18 Ipratropium/Albuterol Sulfate [Iprat-Albut 0.5-3(2.5) mg/3 ml] 3 ml INHALATION Q4H PRN PRN 09/17/18 Metformin HCl 1,000 mg PO BID 09/17/18 Multivit-Min/FA/Lycopen/Lutein [Centrum Silver Men Tablet] 1 each PO DAILY 09/17/18 [place]-3 Fatty Acids/Fish Oil [[place] 3 1,000 mg Softgel] 1,000 mg PO DAILY 09/17/18 [place]-3 Fatty Acids/Fish Oil [[place] 3 1,000 mg Softgel] 2,000 mg PO QHS 09/17/18 Acetaminophen [Tylenol Tablet] 650 mg PO Q6H PRN PRN tablet 09/25/18 Amiodarone HCl [Cordarone] 200 mg PO DAILY #30 tablet 09/25/18 Apixaban [Eliquis] 5 mg PO BID #60 tablet 09/25/18 Benzonatate [Tessalon Perle] 100 mg PO TID PRN PRN #30 capsule 09/25/18 Diltiazem CD [Cardizem CD] 180 mg PO DAILY #30 capsule 09/25/18 Guaifenesin [Mucinex] 1,200 mg PO BID #20 tablet 09/25/18 Hydrocodone Bit/Homatropine [Hycodan Syrup] 5 ml PO QHS PRN #100 ml 09/25/18 Lisinopril [Zestril] 40 mg PO DAILY #30 tablet 09/25/18 Prednisone 10 mg PO DAILY #12 tablet 09/25/18 Simvastatin 40 mg PO QHS #30 tablet 09/25/18 The following prescriptions were given: Amiodarone HCl [Cordarone] 200 mg PO DAILY #30 tablet Benzonatate [Tessalon Perle] 100 mg PO TID PRN PRN #30 capsule PRN Reason: COUGH Diltiazem CD [Cardizem CD] 180 mg PO DAILY #30 capsule Hydrocodone Bit/Homatropine [Hycodan Syrup] 5 ml PO QHS PRN #100 ml PRN Reason: Cough Lisinopril [Zestril] 40 mg PO DAILY #30 tablet Prednisone 10 mg PO DAILY #12 tablet Simvastatin 40 mg PO QHS #30 tablet Apixaban [Eliquis] 5 mg PO BID #60 tablet Guaifenesin [Mucinex] 1,200 mg PO BID #20 tablet Primary Care Physician: Jayme Yang MD [Primary Care Provider] - Within 2 Weeks Test Results: Test results from this visit will be discussed in further detail at your follow- up appointment, if applicable. Please Follow Up With: Emerald Campos NP-C - pulmonary When: 2 weeks Please Follow Up With: heart group When: 2-4 weeks Proposed Discharge Date: 09/25/18
--- NOTE | 2018-09-25 12:17 | PCM.DC.SUM ---
Discharge Date and Diagnosis - Problem List Patient Problems: Active and Suspected Problems Atrial fibrillation with RVR (Acute) Rhinovirus (Acute) Severe sepsis (Acute) Acute respiratory insufficiency (Acute) Date of Admission: 09/17/18 Date of Discharge: 09/25/18 - Primary Discharge Diagnosis Active and Suspected Problems Atrial fibrillation with RVR (Acute) Rhinovirus (Acute) Severe sepsis (Acute) Acute respiratory insufficiency (Acute) - Secondary Discharge Diagnosis Chronic Problems DM2 (diabetes mellitus, type 2) (Chronic) Hyperlipidemia (Chronic) Inflammatory bowel disease (Chronic) Benign essential HTN (Chronic) Rheumatoid aortitis (Chronic) Hospital Course and Treatment Imaging Results: Clinical Impression(s) from Imaging Studies Chest X-Ray 09/17/18 20:04 IMPRESSION: Normal x-ray examination of the chest. Electronically Signed: Estuardo Gotti MD at 20:56 EST , Service support , Soft Tissue Neck CT 09/18/18 14:36 IMPRESSION: Mild degree of sinusitis. Electronically Signed: Shad Macias MD at 15:51 EST Tel [phone], Service support , Chest X-Ray 09/21/18 14:53 IMPRESSION: No acute thoracic pathology. Electronically Signed: Evin Baldwin at 15:20 EST Tel , Service support , Chest CT 09/21/18 20:32 IMPRESSION: Coronary arterial calcifications are present. There are calcified plaques of the thoracic aorta. There are diffuse degenerative changes of the visualized thoracolumbar spine. There are posterior spinal fusion changes of the visualized lower cervical region. There are several nonobstructing calculi in the upper pole of the left kidney measuring up to 3 mm. There is a 2.0 cm low-attenuation nodule of the left adrenal most likely representing a benign adenoma. Electronically Signed: Remy Leary MD at 21:37 EST , Service support , Chuy Paiz MD: cardiology Aquiles Modi MD: pulmonology. Operations: None Procedures: 2-D Echocardiogram Summary of Care Provided: The patient is a 73 year old M presents with shortness of breath. Had afib with RVR that was protracted. Complicated by respiratory insufficiency. [] 1. Acute hypoxic respiratory insufficiency Did drop down to 89% Secondary to acute rhinovirus bronchitis, bronchiectasis and asthma Continue with steroids, 12-14 day taper Back on oxygen. follow up with Dr. Modi, et. al., as outpt 2. Severe sepsis Present on admission Patient met sepsis criteria on admission but also had lactic acidosis Improving Secondary to rhinovirus 3. Acute rhinovirus infection Resolving 4. Atrial fibrillation with RVR ongoing Amio 200, Dilt 180 Echo with EF 75% Cardiology follow up 5. Acute exacerbation of bronchiectasis pulm follow up Patient Problems: Active and Suspected Problems Atrial fibrillation with RVR (Acute) Rhinovirus (Acute) Severe sepsis (Acute) Acute respiratory insufficiency (Acute) Subjective: coughing up some yellow phlegm. - Physical Exam General: Alert, Cooperative, No apparent distress HEENT: Atraumatic, Normocephalic Oral: Moist Mucosa, No Gingival or Mucosal Lesions/ Ulcerations Neck: No Nodes, Thyroid Normal Size and Texture Lungs: Clear to auscultation, Normal air movement, No rhonchi, No wheeze Cardiovascular: Regular rate, Regular Rhythm, Normal S1, Normal S2, No murmurs Abdomen: Bowel Sounds Present, Soft, Non Tender, Non-Distended, No Hepato-splenomegaly Extremities: No edema, No Calf Tenderness Psych/Mental Status: Normal Affect, Appropriate Vital Signs Temp Pulse Resp BP Pulse Ox 36.4 C L 114 H 20 H 156/83 H 92 09/25/18 08:32 09/25/18 08:32 09/25/18 08:32 09/25/18 08:32 09/25/18 11:16 Oxygen Flow Rate (L/min) [ 2 AMBULATION with Oxygen] Oxygen Flow Rate (L/min) [ 0 AMBULATING on Room Air] Oxygen Flow Rate (L/min) [At 0 REST on Room Air] Oxygen Flow Rate (L/min) 2 Oxygen Delivery Method Nasal Cannula Weight: 95.5 kg Body Mass Index (BMI) 33.0 Finger Stick Blood Glucose 151 Intake and Output for Last 24 Hours 09/23/18 09/24/18 09/25/18 23:59 23:59 23:59 Intake Total 1400.1 / 1400.1 1200 / 1200 Output Total 1200 / 1200 Balance 200.1 / 200.1 1200 / 1200 Microbiology Past 72 Hours 09/17/18 20:00 Blood Culture - Final Blood Culture (Wb) - Anticubital Left No growth in 5 days. 09/17/18 21:20 Blood Culture - Final Blood Culture (Wb) - Anticubital Right No growth in 5 days. Laboratory Tests Past 24 Hrs 09/25/18 09/25/18 05:30 05:30 WBC 10.0 RBC 3.87 L Hgb 11.6 L Hct 35.2 L MCV 91.0 MCH 30.0 MCHC 33.0 RDW 16.1 H RDW Differential 52.5 H Plt Count 189 MPV 11.2 Immature Gran % (Auto) 0.300 Neut % (Auto) 75.9 H Lymph % (Auto) 15.3 L [place] % (Auto) 8.1 Eos % (Auto) 0.4 Baso % (Auto) 0.0 Absolute Neuts (auto) 7.6 Absolute Lymphs (auto) 1.52 Total Counted Not Reportable Sodium 143 Potassium 3.9 Chloride 105 Carbon Dioxide 29.0 Anion Gap 9 BUN 32 H Creatinine 1.25 Estim Creat Clear Calc 48.47 Est GFR (MDRD) Af Amer 73 Est GFR (MDRD) Non-Af 60 BUN/Creatinine Ratio 25.6 H Glucose 132 H Calcium 8.6 POC Glucose 09/25/18 09/25/18 09/24/18 11:31 06:46 20:59 POC Glucose 167 H 126 H 304 H 09/24/18 17:03 POC Glucose 304 H Discharge Diet: Low fat/ Low Cholesterol, 1800 Calorie Control Diet Discharge Activity: Return to Normal Activity Call your doctor if you observe: Fever of 101 or Higher, Shortness of breath, Chest pain Home Medications: Medications to take at Discharge Gabapentin [Neurontin] 600 mg PO BID 07/20/13 Finasteride [Proscar] 5 mg PO DAILY 03/14/15 Chlorthalidone [Hygroton] 50 mg PO DAILY 12/24/16 Infliximab-DYYB [Inflectra] 100 mg IV .COMPLEX 02/18/17 Esomeprazole Magnesium [Nexium 24Hr] 22.3 mg PO DAILY 04/15/17 Loratadine [Claritin] 10 mg PO QHS 04/15/17 Albuterol Sulfate [Ventolin Hfa] 2 puff INHALATION BID 01/22/18 Clonidine HCl [Catapres] 0.2 mg PO BID 01/22/18 Glimepiride [Amaryl] 2 mg PO DAILY 01/22/18 Balsalazide Disodium 2,250 mg PO BID 09/17/18 Calcium (Elemental) [Os-Abiel 500] 500 mg PO DAILY@0800 09/17/18 Duloxetine HCl 60 mg PO DAILY 09/17/18 Ipratropium/Albuterol Sulfate [Iprat-Albut 0.5-3(2.5) mg/3 ml] 3 ml INHALATION Q4H PRN PRN 09/17/18 Metformin HCl 1,000 mg PO BID 09/17/18 Multivit-Min/FA/Lycopen/Lutein [Centrum Silver Men Tablet] 1 each PO DAILY 09/17/18 Gamerco-3 Fatty Acids/Fish Oil [Gamerco 3 1,000 mg Softgel] 1,000 mg PO DAILY 09/17/18 Gamerco-3 Fatty Acids/Fish Oil [Gamerco 3 1,000 mg Softgel] 2,000 mg PO QHS 09/17/18 Acetaminophen [Tylenol Tablet] 650 mg PO Q6H PRN PRN tablet 09/25/18 Amiodarone HCl [Cordarone] 200 mg PO DAILY #30 tablet 09/25/18 Apixaban [Eliquis] 5 mg PO BID #60 tablet 09/25/18 Benzonatate [Tessalon Perle] 100 mg PO TID PRN PRN #30 capsule 09/25/18 Diltiazem CD [Cardizem CD] 180 mg PO DAILY #30 capsule 09/25/18 Guaifenesin [Mucinex] 1,200 mg PO BID #20 tablet 09/25/18 Hydrocodone Bit/Homatropine [Hycodan Syrup] 5 ml PO QHS PRN #100 ml 09/25/18 Lisinopril [Zestril] 40 mg PO DAILY #30 tablet 09/25/18 Prednisone 10 mg PO DAILY #12 tablet 09/25/18 Simvastatin 40 mg PO QHS #30 tablet 09/25/18 Following Prescrptions Were Given to Patient: Amiodarone HCl [Cordarone] 200 mg PO DAILY #30 tablet Benzonatate [Tessalon Perle] 100 mg PO TID PRN PRN #30 capsule PRN Reason: COUGH Diltiazem CD [Cardizem CD] 180 mg PO DAILY #30 capsule Hydrocodone Bit/Homatropine [Hycodan Syrup] 5 ml PO QHS PRN #100 ml PRN Reason: Cough Lisinopril [Zestril] 40 mg PO DAILY #30 tablet Prednisone 10 mg PO DAILY #12 tablet Simvastatin 40 mg PO QHS #30 tablet Apixaban [Eliquis] 5 mg PO BID #60 tablet Guaifenesin [Mucinex] 1,200 mg PO BID #20 tablet Primary Care Physician: Jayme Yang MD [Primary Care Provider] - Within 2 Weeks Please Follow Up With: Emerald Campos NP-C - pulmonary When: 2 weeks Please Follow Up With: heart group When: 2-4 weeks Patient Instructions: What Is Atrial Flutter/Atrial Fibrillation?, Your High Blood Pressure Risk Factors, Discharge Instructions for Atrial Fibrillation Disposition: Home Minutes spent on discharge:: 35 Patient Condition:: Fair Medical Necessity - Tobacco Use Smoking Status: Former smoker Meaningful Use Info Meaningful Use Diagnoses (Choose all that apply): None applicable Code Visit Inpatient E&M: 52825 Disch Hosp
--- NOTE | 2018-09-25 12:21 | DS.PCM_ITS ---
Discharge Date and Diagnosis - Problem List Patient Problems: Active and Suspected Problems Atrial fibrillation with RVR (Acute) Rhinovirus (Acute) Severe sepsis (Acute) Acute respiratory insufficiency (Acute) Date of Admission: 09/17/18 Date of Discharge: 09/25/18 - Primary Discharge Diagnosis Active and Suspected Problems Atrial fibrillation with RVR (Acute) Rhinovirus (Acute) Severe sepsis (Acute) Acute respiratory insufficiency (Acute) - Secondary Discharge Diagnosis Chronic Problems DM2 (diabetes mellitus, type 2) (Chronic) Hyperlipidemia (Chronic) Inflammatory bowel disease (Chronic) Benign essential HTN (Chronic) Rheumatoid aortitis (Chronic) Hospital Course and Treatment Imaging Results: Clinical Impression(s) from Imaging Studies Chest X-Ray 09/17/18 20:04 IMPRESSION: Normal x-ray examination of the chest. Electronically Signed: Estuardo Gotti MD at 20:56 EST , Service support , Soft Tissue Neck CT 09/18/18 14:36 IMPRESSION: Mild degree of sinusitis. Electronically Signed: Shad Macias MD at 15:51 EST Tel [phone], Service support , Chest X-Ray 09/21/18 14:53 IMPRESSION: No acute thoracic pathology. Electronically Signed: Evin Baldwin at 15:20 EST Tel , Service support , Chest CT 09/21/18 20:32 IMPRESSION: Coronary arterial calcifications are present. There are calcified plaques of the thoracic aorta. There are diffuse degenerative changes of the visualized thoracolumbar spine. There are posterior spinal fusion changes of the visualized lower cervical region. There are several nonobstructing calculi in the upper pole of the left kidney measuring up to 3 mm. There is a 2.0 cm low-attenuation nodule of the left adrenal most likely representing a benign adenoma. Electronically Signed: Remy Leary MD at 21:37 EST , Service support , Chuy Paiz MD: cardiology Aquiles Modi MD: pulmonology. Operations: None Procedures: 2-D Echocardiogram Summary of Care Provided: The patient is a 73 year old M presents with shortness of breath. Had afib with RVR that was protracted. Complicated by respiratory insufficiency. [] 1. Acute hypoxic respiratory insufficiency * Did drop down to 89% * Secondary to acute rhinovirus bronchitis, bronchiectasis and asthma * Continue with steroids, 12-14 day taper * Back on oxygen. * follow up with Dr. Modi et. al., as outpt 2. Severe sepsis * Present on admission * Patient met sepsis criteria on admission but also had lactic acidosis * Improving * Secondary to rhinovirus 3. Acute rhinovirus infection * Resolving 4. Atrial fibrillation with RVR * ongoing * Amio 200, Dilt 180 * Echo with EF 75% * Cardiology follow up 5. Acute exacerbation of bronchiectasis * pulm follow up Patient Problems: Active and Suspected Problems Atrial fibrillation with RVR (Acute) Rhinovirus (Acute) Severe sepsis (Acute) Acute respiratory insufficiency (Acute) Subjective: coughing up some yellow phlegm. - Physical Exam General: Alert, Cooperative, No apparent distress HEENT: Atraumatic, Normocephalic Oral: Moist Mucosa, No Gingival or Mucosal Lesions/ Ulcerations Neck: No Nodes, Thyroid Normal Size and Texture Lungs: Clear to auscultation, Normal air movement, No rhonchi, No wheeze Cardiovascular: Regular rate, Regular Rhythm, Normal S1, Normal S2, No murmurs Abdomen: Bowel Sounds Present, Soft, Non Tender, Non-Distended, No Hepato- splenomegaly Extremities: No edema, No Calf Tenderness Psych/Mental Status: Normal Affect, Appropriate Vital Signs Temp Pulse Resp BP Pulse Ox 36.4 C L 114 H 20 H 156/83 H 92 09/25/18 08:32 09/25/18 08:32 09/25/18 08:32 09/25/18 08:32 09/25/18 11:16 Oxygen Flow Rate (L/min) [ 2 AMBULATION with Oxygen] Oxygen Flow Rate (L/min) [ 0 AMBULATING on Room Air] Oxygen Flow Rate (L/min) [At 0 REST on Room Air] Oxygen Flow Rate (L/min) 2 Oxygen Delivery Method Nasal Cannula Weight: 95.5 kg Body Mass Index (BMI) 33.0 Finger Stick Blood Glucose 151 Intake and Output for Last 24 Hours 09/23/18 09/24/18 09/25/18 23:59 23:59 23:59 Intake Total 1400.1 / 1400.1 1200 / 1200 Output Total 1200 / 1200 Balance 200.1 / 200.1 1200 / 1200 Microbiology Past 72 Hours 09/17/18 20:00 Blood Culture - Final Blood Culture (Wb) - Anticubital Left No growth in 5 days. 09/17/18 21:20 Blood Culture - Final Blood Culture (Wb) - Anticubital Right No growth in 5 days. Laboratory Tests Past 24 Hrs 09/25/18 09/25/18 05:30 05:30 WBC 10.0 RBC 3.87 L Hgb 11.6 L Hct 35.2 L MCV 91.0 MCH 30.0 MCHC 33.0 RDW 16.1 H RDW Differential 52.5 H Plt Count 189 MPV 11.2 Immature Gran % (Auto) 0.300 Neut % (Auto) 75.9 H Lymph % (Auto) 15.3 L Burke % (Auto) 8.1 Eos % (Auto) 0.4 Baso % (Auto) 0.0 Absolute Neuts (auto) 7.6 Absolute Lymphs (auto) 1.52 Total Counted Not Reportable Sodium 143 Potassium 3.9 Chloride 105 Carbon Dioxide 29.0 Anion Gap 9 BUN 32 H Creatinine 1.25 Estim Creat Clear Calc 48.47 Est GFR (MDRD) Af Amer 73 Est GFR (MDRD) Non-Af 60 BUN/Creatinine Ratio 25.6 H Glucose 132 H Calcium 8.6 POC Glucose 09/25/18 09/25/18 09/24/18 11:31 06:46 20:59 POC Glucose 167 H 126 H 304 H 09/24/18 17:03 POC Glucose 304 H Discharge Diet: Low fat/ Low Cholesterol, 1800 Calorie Control Diet Discharge Activity: Return to Normal Activity Call your doctor if you observe: Fever of 101 or Higher, Shortness of breath, Chest pain Home Medications: Medications to take at Discharge Gabapentin [Neurontin] 600 mg PO BID 07/20/13 Finasteride [Proscar] 5 mg PO DAILY 03/14/15 Chlorthalidone [Hygroton] 50 mg PO DAILY 12/24/16 Infliximab-DYYB [Inflectra] 100 mg IV .COMPLEX 02/18/17 Esomeprazole Magnesium [Nexium 24Hr] 22.3 mg PO DAILY 04/15/17 Loratadine [Claritin] 10 mg PO QHS 04/15/17 Albuterol Sulfate [Ventolin Hfa] 2 puff INHALATION BID 01/22/18 Clonidine HCl [Catapres] 0.2 mg PO BID 01/22/18 Glimepiride [Amaryl] 2 mg PO DAILY 01/22/18 Balsalazide Disodium 2,250 mg PO BID 09/17/18 Calcium (Elemental) [Os-Abiel 500] 500 mg PO DAILY@0800 09/17/18 Duloxetine HCl 60 mg PO DAILY 09/17/18 Ipratropium/Albuterol Sulfate [Iprat-Albut 0.5-3(2.5) mg/3 ml] 3 ml INHALATION Q4H PRN PRN 09/17/18 Metformin HCl 1,000 mg PO BID 09/17/18 Multivit-Min/FA/Lycopen/Lutein [Centrum Silver Men Tablet] 1 each PO DAILY 09/17/18 Magnolia-3 Fatty Acids/Fish Oil [Magnolia 3 1,000 mg Softgel] 1,000 mg PO DAILY Magnolia-3 Fatty Acids/Fish Oil [Magnolia 3 1,000 mg Softgel] 2,000 mg PO QHS 09/17/18 Acetaminophen [Tylenol Tablet] 650 mg PO Q6H PRN PRN tablet 09/25/18 Amiodarone HCl [Cordarone] 200 mg PO DAILY #30 tablet 09/25/18 Apixaban [Eliquis] 5 mg PO BID #60 tablet 09/25/18 Benzonatate [Tessalon Perle] 100 mg PO TID PRN PRN #30 capsule 09/25/18 Diltiazem CD [Cardizem CD] 180 mg PO DAILY #30 capsule 09/25/18 Guaifenesin [Mucinex] 1,200 mg PO BID #20 tablet 09/25/18 Hydrocodone Bit/Homatropine [Hycodan Syrup] 5 ml PO QHS PRN #100 ml 09/25/18 Lisinopril [Zestril] 40 mg PO DAILY #30 tablet 09/25/18 Prednisone 10 mg PO DAILY #12 tablet 09/25/18 Simvastatin 40 mg PO QHS #30 tablet 09/25/18 Following Prescrptions Were Given to Patient: Amiodarone HCl [Cordarone] 200 mg PO DAILY #30 tablet Benzonatate [Tessalon Perle] 100 mg PO TID PRN PRN #30 capsule PRN Reason: COUGH Diltiazem CD [Cardizem CD] 180 mg PO DAILY #30 capsule Hydrocodone Bit/Homatropine [Hycodan Syrup] 5 ml PO QHS PRN #100 ml PRN Reason: Cough Lisinopril [Zestril] 40 mg PO DAILY #30 tablet Prednisone 10 mg PO DAILY #12 tablet Simvastatin 40 mg PO QHS #30 tablet Apixaban [Eliquis] 5 mg PO BID #60 tablet Guaifenesin [Mucinex] 1,200 mg PO BID #20 tablet Primary Care Physician: Jayme Yang MD [Primary Care Provider] - Within 2 Weeks Please Follow Up With: Emerald Campos NP-C - pulmonary When: 2 weeks Please Follow Up With: heart group When: 2-4 weeks Patient Instructions: What Is Atrial Flutter/Atrial Fibrillation?, Your High Blood Pressure Risk Factors, Discharge Instructions for Atrial Fibrillation Disposition: Home Minutes spent on discharge:: 35 Patient Condition:: Fair Medical Necessity - Tobacco Use Smoking Status: Former smoker Meaningful Use Info Meaningful Use Diagnoses (Choose all that apply): None applicable Code Visit Inpatient E&M: 64438 Disch Hosp
--- NOTE | 2018-09-25 13:16 | PCA ---
Spoke with Miranda dejesus at [facility] and she states that she attempted to call and set up follow up apt with pt and he refused and stated that he would call them to schedule apt once he was out of the hospital and decided what he wanted to do.
--- NOTE | 2018-09-26 15:36 | CASEMGMT ---
Addendum entered by Vane Bobby 10/02/18 14:54: Pt's returned call to this OCTAVIO BERMUDEZ and states that pt is 'improving' and has been 'up and about.' states no questions regarding discharge instructions or medications at this time. Pt's states that pt has not needed a breathing treatment in several days. states that they have a call into pulmology in regards to getting cpap settings lowered. states pt has appt's scheduled for pulm and cardio and will schedule with PCP. states no suggestions for [facility] at this time. She states that pt 'was very pleased with care' and that 'everyone did a good job.' states no further questions/concerns/needs at this time. Megan CUNNINGHAM CM Original Note: OCTAVIO BERMUDEZ Discharge F/U Phone Call LACE: 14 Strata: 4 Discharge date: 09/25/18 Call date: 09/26/18 Call time: [phone] Attempted to reach pt at this time without success, message left for pt to call this OCTAVIO BERMUDEZ back if able. Megan CUNNINGHAM CM Admission dx: Lactic acidosis, Asthma exac
== END 2018-09-25 16:43 | disposition home or self-care (01) | DRG 872 ==
LOC: ED 21:12 → PCU 23:31
PROVIDERS: Internal Medicine; Internal Medicine Cardiovascular Disease; Internal Medicine Critical Care Medicine; Nurse Practitioner Family; Admitting Provider Student in an Organized Health Care Education/Training Program; Emergency Provider Emergency Medicine; Family Provider Family Medicine; PCP Family Medicine; Referring Provider Student in an Organized Health Care Education/Training Program
DX: A41.89 Other specified sepsis (principal); E87.2 Acidosis; J47.0 Bronchiectasis with acute lower respiratory infection; J47.1 Bronchiectasis with (acute) exacerbation; J45.901 Unspecified asthma with (acute) exacerbation; R65.20 Severe sepsis without septic shock; J20.6 Acute bronchitis due to rhinovirus; M06.9 Rheumatoid arthritis, unspecified; E78.5 Hyperlipidemia, unspecified; N40.0 Benign prostatic hyperplasia without lower urinary tract symptoms; R06.89 Other abnormalities of breathing; I48.91 Unspecified atrial fibrillation; R09.02 Hypoxemia; E11.9 Type 2 diabetes mellitus without complications; I10 Essential (primary) hypertension; I16.0 Hypertensive urgency; F32.9 Major depressive disorder, single episode, unspecified; Z79.84 Long term (current) use of oral hypoglycemic drugs; Z79.899 Other long term (current) drug therapy; Z87.891 Personal history of nicotine dependence; K52.9 Noninfective gastroenteritis and colitis, unspecified
CPT/HCPCS: 36415; 36600; 70491; 71045; 71260; 80048; 80053; 80061; 81001; 82803; 82962; 83605; 83735; 83880; 84439; 84443; 84481; 84484; 85025; 85027; 87040; 87633; 93005; 93306; 94640; 94667; 94668; 97802; 99283; J7030; J7040; J7050; Q9957; Q9967; A4216; J1940

== ENCOUNTER → 2018-10-17 07:55 | Outpatient (CLI) | payer MEDICARE, OTHER, SELFPAY ==
[2018-10-10 11:17] VITALS: BMI 33.0
[2018-10-17 08:10] VITALS: BP 164/103; PULSE 90; RESP 18; TEMP 36.1; O2SAT 94; BMI 32.1
[2018-10-17 09:17] VITALS: BP 164/100; PULSE 92; RESP 16; TEMP 36.5
--- OUTSIDE RECORDS SUMMARY | 2018-12-21 14:55 | XMS RPT_ITS ---
:1945 Author Organization OHIP Support Name Relationship Address Phone RADHABRYNN Unavailable [address] + [place] [address] LORI HOLLOWAY Unavailable [address] + [place] [address] R Unavailable Unavailable Unavailable SARITABRODYBRYNN Unavailable [address] + [place] [address] LORI HOLLOWAY Unavailable [address] + [place] [address] R Unavailable Unavailable Unavailable BRYNN GARCIA Unavailable Unavailable + LORI HOLLOWAY Unavailable [address] + [place] [address] R Unavailable Unavailable Unavailable OLRI HOLLOWAY Unavailable [address] + [place] [address] R Unavailable Unavailable Unavailable LORI HOLLOWAY Unavailable [address] + [place] [address] R Unavailable Unavailable Unavailable LORI HOLLOWAY Unavailable [address] + [place] [address] R Unavailable Unavailable Unavailable LORI HOLLOWAY Unavailable [address] + [place] [address] R Unavailable Unavailable Unavailable LORI HOLLOWAY Unavailable [address] + [place] [address] R Unavailable Unavailable Unavailable LORI HOLLOWAY Unavailable [address] + [place] [address] R Unavailable Unavailable Unavailable LORI HOLLOWAY Unavailable [address] + [place] [address] R Unavailable Unavailable Unavailable LORI HOLLOWAY Unavailable [address] + [place] [address] R Unavailable Unavailable Unavailable LORI HOLLOWAY Unavailable [address] + [place] [address] R Unavailable Unavailable Unavailable JEWEL LORI Unavailable [address] + [place] [address] R Unavailable Unavailable Unavailable SUSAN HOLLOWAYELA Unavailable [address] + [place] [address] R Unavailable Unavailable Unavailable SUSAN HOLLOWAYELA Unavailable [address] + [place] [address] R Unavailable Unavailable Unavailable LORI HOLLOWAY Unavailable [address] + [place] [address] R Unavailable Unavailable Unavailable LORI HOLLOWAY Unavailable [address] + [place] [address] R Unavailable Unavailable Unavailable LORI HOLLOWAY Unavailable [address] + [place] [address] R Unavailable Unavailable Unavailable LORI HOLLOWAY Unavailable [address] + [place] [address] R Unavailable Unavailable Unavailable LORI HOLLOWAY Unavailable [address] + [place] [address] R Unavailable Unavailable Unavailable LORI HOLLOWAY Unavailable [address] + [place] [address] R Unavailable Unavailable Unavailable LORI HOLLOWAY Unavailable [address] + [place] [address] R Unavailable Unavailable Unavailable LORI HOLLOWAY Unavailable [address] + [place] [address] R Unavailable Unavailable Unavailable SUSAN HOLLOWAYELA Unavailable [address] + [place] [address] R Unavailable Unavailable Unavailable SUSAN HOLLOWAYELA Unavailable [address] + [place] [address] R Unavailable Unavailable Unavailable SUSAN HOLLOWAYELA Unavailable [address] + [place] [address] R Unavailable Unavailable Unavailable SUSAN HOLLOWAYELA Unavailable [address] + [place] [address] R Unavailable Unavailable Unavailable SUSAN HOLLOWAYELA Unavailable [address] + [place] [address] R Unavailable Unavailable Unavailable SUSAN HOLLOWAYELA Unavailable [address] + [place] [address] R Unavailable Unavailable Unavailable JEWELLORI Unavailable [address] + [place] [address] R Unavailable Unavailable Unavailable JEWELLORI Unavailable [address] + [place] [address] R Unavailable Unavailable Unavailable JEWELLORI Unavailable [address] + [place] [address] R Unavailable Unavailable Unavailable JEWEL LORI Unavailable [address] + [place] [address] R Unavailable Unavailable Unavailable JEWELLORI Unavailable [address] + [place] [address] R Unavailable Unavailable Unavailable JEWEL LORI Unavailable [address] + [place] [address] R Unavailable Unavailable Unavailable JEWEL LORI Unavailable [address] + [place] [address] R Unavailable Unavailable Unavailable LORI HOLLOWAY Unavailable [address] + [place] [address] R Unavailable Unavailable Unavailable JEWEL LORI Unavailable [address] + [place] [address] R Unavailable Unavailable Unavailable LORI HOLLOWAY Unavailable [address] + [place] [address] R Unavailable Unavailable Unavailable JEWEL LORI Unavailable [address] + [place] [address] R Unavailable Unavailable Unavailable LORI HOLLOWAY Unavailable [address] + [place] [address] R Unavailable Unavailable Unavailable LORI HOLLOWAY Unavailable [address] + [place] [address] R Unavailable Unavailable Unavailable JEWELLORI Unavailable [address] + [place] [address] R Unavailable Unavailable Unavailable LORI HOLLOWAY Unavailable [address] + [place] [address] R Unavailable Unavailable Unavailable LORI HOLLOWAY Unavailable [address] + [place] [address] R Unavailable Unavailable Unavailable LORI HOLLOWAY Unavailable [address] + [place] [address] R Unavailable Unavailable Unavailable Care Team Providers Name Role Phone Harry Jayme Primary Care Unavailable Koram, Kimmie Geovanna Admitting Unavailable Koram, Kimmie Geovanna Referring Unavailable Rico Tilley Attending Unavailable Chuy Manjarrez Consulting Unavailable RinaAquiles miramontes Consulting Unavailable Koram, Kimmie Geovanna Admitting Unavailable Koram, Kimmie Geovanna Attending Unavailable Koram, Kimmie Geovanna Referring Unavailable [facility] Primary Care Unavailable Koram, Kimmie Geovanna Consulting Unavailable Marycruz Yen Attending Unavailable Marycruz Yen Referring Unavailable [facility] Primary Care Unavailable Koram, Kimmie Geovanna Admitting Unavailable Koram, Kimmie Geovanna Referring Unavailable [facility] Primary Care Unavailable Shelia Sterling Consulting Unavailable Shelia Sterling Attending Unavailable Koram, Kimmie Geovanna Admitting Unavailable Koram, Kimmie Geovanna Referring Unavailable [facility] Care Unavailable Chuy Manjarrez Consulting Unavailable Rico Tilley Attending Unavailable Treva, Rico Consulting Unavailable Koram, Kimmie Geovanna Admitting Unavailable Chuy Manjarrez Attending Unavailable Koram, Kimmie Geovanna Referring Unavailable [facility] Primary Care Unavailable Chuy Manjarrez Consulting Unavailable Rico Tilley Consulting Unavailable Rico Tilley Attending Unavailable Koram, Kimmie Geovanna Admitting Unavailable Koram, Kimmie Geovanna Referring Unavailable [facility] Care Unavailable Chuy Manjarrez Consulting Unavailable Jopperi, Rico Consulting Unavailable Koram, Kimmie Geovanna Admitting Unavailable Chuy Manjarrez Attending Unavailable Koram, Kimmie Geovanna Referring Unavailable [facility] Primary Care Unavailable Chuy Manjarrez Consulting Unavailable Aquiles Modi Consulting Unavailable Arlenepplucrecia, Rico Consulting Unavailable Koram, Kimmie Geovanna Admitting Unavailable Rico Tilley Attending Unavailable Koram, Kimmie Geovanna Referring Unavailable [facility] Primary Care Unavailable Chuy Manjarrez Consulting Unavailable RianAquiles miramontes Consulting Unavailable Arlenepplucrecia, Rico Consulting Unavailable Koram, Kimmie Geovanna Admitting Unavailable Aquiles Modi Attending Unavailable Koram, Kimmie Geovanna Referring Unavailable [facility] Primary Care Unavailable Chuy Manjarrez Consulting Unavailable RianAquiles miramontes Consulting Unavailable Jopperi, Rico Consulting Unavailable Koram, Kimmie Geovanna Admitting Unavailable Chuy Manjarrez Attending Unavailable Koram, Kimmie Geovanna Referring Unavailable [facility] Primary Care Unavailable Chuy Manjarrez Consulting Unavailable Rian, Aquiles Consulting Unavailable Sementi, Shelia Consulting Unavailable Koram, Kimmie Geovanna Admitting Unavailable Sementi, Shelia Attending Unavailable Koram, Kimmie Geovanna Referring Unavailable [facility] Primary Care Unavailable Chuy Manjarrez Consulting Unavailable Rian, Aquiles Consulting Unavailable Sementi, Shelia Consulting Unavailable Koram, Kimmie Geovanna Admitting Unavailable Rian, Aquiles Attending Unavailable Koram, Kimmie Geovanna Referring Unavailable [facility] Primary Care Unavailable Chuy Manjarrez Consulting Unavailable Rian, Aquiles Consulting Unavailable Sementi, Shelia Consulting Unavailable Koram, Kimmie Geovanna Admitting Unavailable JoRico lezama Attending Unavailable Koram, Kimmie Geovanna Referring Unavailable [facility] Primary Care Unavailable Chuy Manjarrez Consulting Unavailable Rian, Aquiles Consulting Unavailable JopperiRico Consulting Unavailable Marycruz Yen Attending Unavailable [facility] Primary Care Unavailable Marycruz Yen Attending Unavailable Marycruz Yen Referring Unavailable [facility] Primary Care Unavailable Sibilia, Devon Consulting Unavailable Sibilia, Devon Attending Unavailable Sibilia, Devon Referring Unavailable [facility] Primary Care Unavailable Harry, Jayme Attending Unavailable [facility] Care Unavailable Koram, Kimmie Geovanna Admitting Unavailable Jayme Lino Attending Unavailable Koram, Kimmie Geovanna Referring Unavailable [facility] Care Unavailable Chuy Manjarrez Consulting Unavailable Rian, Aquiles Consulting Unavailable Jopperi, Rico Consulting Unavailable Koram, Kimmie Geovanna Admitting Unavailable RianAquiles miramontes Attending Unavailable Koram, Kimmie Geovanna Referring Unavailable [facility] Primary Care Unavailable Chuy Manjarrez Consulting Unavailable Rian, Aquiles Consulting Unavailable Jopperi, Rico Consulting Unavailable Koram, Kimmie Geovanna Admitting Unavailable JopperiRico Attending Unavailable Koram, Kimmie Geovanna Referring Unavailable [facility] Primary Care Unavailable Chuy Manjarrez Consulting Unavailable Rian, Aquiles Consulting Unavailable Jopperi, Rico Consulting Unavailable Koram, Kimmie Geovanna Admitting Unavailable Koram, Kimmie Geovanna Referring Unavailable Harry, Jayme Primary Care Unavailable Chuy Manjarrez Consulting Unavailable Semencam, Shelia Attending Unavailable Rian, Aquiles Consulting Unavailable Jopperi, Rico Consulting Unavailable Koram, Kimmie Geovanna Admitting Unavailable Rian, Aquiles Attending Unavailable Koram, Kimmie Geovanna Referring Unavailable Harry, Jayme Primary Care Unavailable Chuy Manjarrez Consulting Unavailable Aquiles Modi Consulting Unavailable Rico Tilley Consulting Unavailable Ronaldo Mishra Attending Unavailable Kimmie Nur Referring Unavailable Andres, Emerald Attending Unavailable Harry, Jayme Referring Unavailable Chuy Manjarrez Attending Unavailable Shelia Sterling Referring Unavailable Campos, Emerald Attending Unavailable Campos, Emerald Referring Unavailable Harry, Jayme Primary Care Unavailable Chuy Manjarrez Attending Unavailable Treva, Rico Referring Unavailable Vellanki, Marycruz Attending Unavailable Vellanki, Marycruz Referring Unavailable Harry, Jayme Primary Care Unavailable Chuy Manjarrez Attending Unavailable Harry, Jayme Referring Unavailable Vellanki, Marycruz Attending Unavailable Vellanki, Marycruz Referring Unavailable Harry, Jayme Primary Care Unavailable Harry, Jayme Primary Care Unavailable Marlon, Drake Admitting Unavailable Ward Martin Consulting Unavailable Laureano Lima Attending Unavailable Tereletsky, Drake Admitting Unavailable TerDrake hoang Attending Unavailable Harry, Jayme Primary Care Unavailable Mario, Ward Consulting Unavailable Drake Mason Consulting Unavailable Marlon, Drake Admitting Unavailable Laureano Lima Attending Unavailable Harry, Jayme Primary Care Unavailable Mario, Ward Consulting Unavailable Laureano Lima Consulting Unavailable Terviktor, Drake Admitting Unavailable Laureano Lima Attending Unavailable Harry, Jayme Primary Care Unavailable Mario, Ward Consulting Unavailable Laureano Lima Consulting Unavailable Vellanki, Marycruz Attending Unavailable Vellanki, Marycruz Referring Unavailable Harry, Jayme Primary Care Unavailable Vellanki, Marycruz Attending Unavailable Vellanki, Marycruz Referring Unavailable Harry, Jayme Primary Care Unavailable Vellanki, Marycruz Attending Unavailable Vellanki, Marycruz Referring Unavailable Harry, Jayme Primary Care Unavailable Vellanki, Marycruz Attending Unavailable Vellanki, Marycruz Referring Unavailable Harry, Jayme Primary Care Unavailable Harry, Jayme Primary Care Unavailable RojoDom Attending Unavailable Harry, Jayme Primary Care Unavailable Surinder Larson Admitting Unavailable Surinder Larson Attending Unavailable Vellanki, Marycruz Attending Unavailable Vellanki, Marycruz Referring Unavailable Harry, Jayme Primary Care Unavailable Vellanki, Marycruz Attending Unavailable Vellanki, Marycruz Referring Unavailable Harry, Jayme Primary Care Unavailable Chuy Manjarrez Attending Unavailable ReyesSurinder Referring Unavailable Vellanki, Marycruz Attending Unavailable Vellanki, Marycruz Referring Unavailable Harry, Jayme Primary Care Unavailable Harry, Jayme Attending Unavailable Jayme Harry Primary Care Unavailable PROBLEMS PROBLEMS DATE TYPE CONDITION / CODE ATTENDING STATUS SOURCE 10/23/2018 Unknown I48.91 - Unspecified Chuy Manjarrez [facility] [place] atrial fibrillation / Community I48.91(ICD-10) Hospital Repository 10/23/2018 Unknown I27.20 - Pulmonary Chuy Manjarrez [facility] [place] hypertension, Community unspecified / Hospital I27.20(ICD-10) Repository 10/23/2018 Unknown E78.5 - Chuy Manjarrez [facility] [place] Hyperlipidemia, Community unspecified / Hospital E78.5(ICD-10) Repository 10/10/2018 Unknown R06.02 - Shortness of Campos, Active [place] breath / [facility] R06.02(ICD-10) Hospital Repository 10/10/2018 Unknown G47.33 - Obstructive Campos, Active [place] sleep apnea (adult) [facility] (pediatric) / Hospital G47.33(ICD-10) Repository 09/26/2018 Unknown R06.89 - Other Aquiles Modi Active [place] abnormalities of Community breathing / Hospital R06.89(ICD-10) Repository 10/14/2018 Unknown R94.31 - Abnormal Chuy Manjarrez [facility] electrocardiogram Community [ECG] [EKG] / Hospital R94.31(ICD-10) Repository 08/14/2018 Unknown N40.0 - Benign Jayme Harry [facility] prostatic hyperplasia Community without lower urinary Hospital tract symptoms / Repository N40.0(ICD-10) 06/27/2018 Unknown Z79.899 - Other long Debralanroxy, Active [place] term (current) drug [facility] therapy / Hospital Z79.899(ICD-10) Repository 06/27/2018 Unknown M15.9 - Vellanki, 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, [facility] unspecified / Hospital M15.9(ICD-10) Repository 06/27/2018 Unknown M06.09 - Rheumatoid Debralanroxy, Active [place] arthritis without [facility] rheumatoid factor, Hospital multiple sites / Repository M06.09(ICD-10) 06/27/2018 Unknown K21.0 - Vellanki, Active [place] Gastro-esophageal [facility] reflux disease with Hospital esophagitis / Repository K21.0(ICD-10) 06/27/2018 Unknown M47.897 - Other Vellanki, [facility] [place] spondylosis, [facility] lumbosacral region / Hospital M47.897(ICD-10) Repository 06/27/2018 Unknown M51.37 - Other Vellanki, [facility] [place] intervertebral disc [facility] degeneration, Hospital lumbosacral region / Repository M51.37(ICD-10) 06/27/2018 Unknown M47.892 - Other Vellanki, [facility] [place] spondylosis, cervical [facility] region / Hospital M47.892(ICD-10) Repository 06/27/2018 Unknown K51.80 - Other Vellanki, [facility] [place] ulcerative colitis [facility] without complications Hospital / K51.80(ICD-10) Repository 06/27/2018 Unknown E11.9 - Type 2 Vellanki, Active [place] diabetes mellitus [facility] without complications Hospital / E11.9(ICD-10) Repository 07/04/2018 Unknown I10 - Essential Chuy Manjarrez [facility] [place] (primary) hypertension [facility] / I10(ICD-10) Hospital Repository 06/03/2018 Unknown N20.0 - Calculus of Surinder Larson Active [place] kidney / N20.0(ICD-10) [facility] Hospital Repository 06/03/2018 Unknown Z87.442 - Personal Surinder Larson Active [place] history of urinary [facility] calculi / Hospital Z87.442(ICD-10) Repository 11/27/2017 Unknown R06.00 - Dyspnea, Sibilia, Active [place] unspecified / [facility] R06.00(ICD-10) Hospital Repository 11/27/2017 Unknown R60.0 - Localized Sibilia, Active [place] edema / R60.0(ICD-10) [facility] Hospital Repository 10/29/2017 Unknown M06.00 - Rheumatoid Debralanroxy, Active [place] arthritis without [facility] rheumatoid factor, Hospital unspecified site / Repository M06.00(ICD-10) PROCEDURES PROCEDURES No Procedure Records FoundRESULTS RESULTS CARDIOLOGY VISIT Observed: 10/23/2018 Status: F Source: [place] REPORT 11:58 AM [facility] HOSPITAL REPOSITORY [facility] [address] [place] [address] [address] [place] [address] OFFICE VISIT Date of Service: 10/23/18 MR#: [id number] Acct: [id number] Name: MEGAN HOLLOWAY Rep #: [id number] : 1945 Provider: Chuy Manjarrez MD Age/Sex: 73/M Location: [facility] Status: Signed HPI HPI Chief Complaint: routine f/u Details: The patient is a 73 year old M, with past medical history of diabetes, hypertension, hypercholesterolemia, obstructive sleep apnea, who presented to [facility] on 09/17/2018 secondary to worsening of respiratory status despite Augmentin and oral prednisone therapy. Patient reportedly has a history of COPD that is treated by Dr. Lange as an outpatient. Patient reportedly had intensification of cough and shortness of breath despite aerosol machine at home, so he came to the ER for evaluation. In the emergency room, patient was noted to be hypertensive at 200/100, tachycardic at 110 bpm and 99% on 2 L. Patient was noted to have a very harsh cough and an elevated white blood cell count at 16 with a lactate of 6. Patient was admitted to the PCU with a diagnosis of A. fib with RVR. Patient was found to have rhinovirus. Patient was treated with Cardizem and amiodarone as well as antihypertensive medications. Patient has a [id number]-hdne smoking history. Patient states he is typically seen by Dr. Lange as an outpatient, but states I think I may need another doctor. Patient states he has had pulmonary function test in the past, but is unaware of the results. Patient is no longer smoking. Patient is on Remicade therapy at baseline secondary to rheumatoid arthritis and colitis. Patient is unaware of ever being told of bronchiectasis. Patient denied any history of travel, exposure to asbestos or TB. Patient denies any chest pain at this time. Patient does have a CPAP for sleep apnea that he uses supplemental oxygen, but denies any history of supplemental oxygen at baseline while awake. Part of his cardiac workup on 09/20/18 he underwent an echocardiogram which showed the following: The estimated ejection fraction is 75 %. Unable to assess diastolic dysfunction due to arrhythmia. The right atrium is mildly enlarged. The left atrium is severely enlarged. Trivial mitral valve insufficiency. Trivial tricuspid valve insufficiency. Right ventricular systolic pressure estimated to be 40 mmHg. Mild pulmonary hypertension. Compared to echo rerport dated 11/05/2016, LV function has remained the same, but pt now appears to be in atrial fibrillation. Prior to his admission on 11/05/16 he underwent a nuclear stress test which was negative for inducible ischemia. Since discharge the patient underwent pulmonary function test on 10/21/18 which were normal. Prior to discharge the patient converted to normal sinus rhythm/sinus tachycardia confirmed by EKG on 09/17/18. Repeat EKG is pending. patient is now here in follow-up. This discharge the patient has been doing fairly well. He denies any chest pain, angina, shortness of breath and reports improved respiratory status. His pulmonary status has improved, but still not completely back to normal. He denies any lower extremity edema or exertional anginal symptoms. Her office today's blood pressure is 150/80, pulse is 92 and regular. Physical exam is as below. Lipids as of 09/20/18 show an LDL of 91 and HDL of 44. Stress echo was pending. EKG today 10/23/18 shows normal sinus rhythm, left anterior hemiblock, possible old anterior and inferior wall myocardial infarction versus lead misplaced QT corrected of 415 ms. Intake Vital Signs10/23/18 Height 5 ft 6 in 10/23/18 Weight: 204 lb 10/23/18 Body Mass Index (BMI) 32.9 10/23/18 Blood Pressure 150/80 H Intake Visit Reasons: S/P [facility], [facility] [employer] Required: No Accompanied by: Is patient in pain?: No Allergies aspirin Allergy (Severe, Verified 10/22/18 08:50) Mouth swelling morphine Adverse Reaction (Severe, Verified 10/22/18 08:50) UNABLE TO URINATE Medications Gabapentin [Neurontin] 600 mg PO BID 07/20/13 [History Confirmed 10/23/18] Finasteride [Proscar] 5 mg PO DAILY 03/14/15 [History Confirmed 10/23/18] Infliximab-DYYB [Inflectra] 100 mg IV .COMPLEX 02/18/17 [History Confirmed 10/23/18] Esomeprazole Magnesium [Nexium 24Hr] 22.3 mg PO DAILY 04/15/17 [History Confirmed 10/23/18] Loratadine [Claritin] 10 mg PO QHS 04/15/17 [History Confirmed 10/23/18] Albuterol Sulfate [Ventolin Hfa] 2 puff INHALATION BID 01/22/18 [History Confirmed 10/23/18] Glimepiride [Amaryl] 2 mg PO DAILY 01/22/18 [History Confirmed 10/23/18] Balsalazide Disodium 2,250 mg PO BID 09/17/18 [History Confirmed 10/23/18] Calcium (Elemental) [Os-Abiel 500] 500 mg PO DAILY@0800 09/17/18 [History Confirmed 10/23/18] Duloxetine HCl 60 mg PO DAILY 09/17/18 [History Confirmed 10/23/18] Ipratropium/Albuterol Sulfate [Iprat-Albut 0.5-3(2.5) mg/3 ml] 3 ml INHALATION Q4H PRN PRN 09/17/18 [History Confirmed 10/23/18] Metformin HCl 1,000 mg PO BID 09/17/18 [History Confirmed 10/23/18] Multivit-Min/FA/Lycopen/Lutein [Centrum Silver Men Tablet] 1 ea PO DAILY 09/17/18 [History Confirmed 10/23/18] [place]-3 Fatty Acids/Fish Oil [[place] 3 1,000 mg Softgel] 2,000 mg PO QHS 09/17/18 [History Confirmed 10/23/18] Acetaminophen [Tylenol Tablet] 650 mg PO Q6H PRN PRN tab 09/25/18 [Rx Confirmed 10/23/18] Benzonatate [Tessalon Perle] 100 mg PO TID PRN PRN #30 cap 09/25/18 [Rx Confirmed 10/23/18] Guaifenesin [Mucinex] 1,200 mg PO BID #20 tab 09/25/18 [Rx Confirmed 10/23/18] Hydrocodone Bit/Homatropine [Hycodan Syrup] 5 ml PO QHS PRN #100 ml 09/25/18 [Rx Confirmed 10/23/18] Simvastatin 40 mg PO QHS #30 tab 09/25/18 [Rx Confirmed 10/23/18] amiodarone 200 mg tablet 200 mg PO DAILY #30 tab 10/23/18 [Rx Confirmed 10/23/18] apixaban 5 mg tablet 5 mg PO BID #60 tab 10/23/18 [Rx Confirmed 10/23/18] clonidine HCl 0.2 mg tablet 0.2 mg PO .COMPLEX tab 10/23/18 [History Confirmed 10/23/18] diltiazem CD 240 mg capsule,extended release 24 hr 240 mg PO DAILY #30 cap 10/23/18 [Rx Confirmed 10/23/18] lisinopril 40 mg tablet 40 mg PO DAILY #30 tab 10/23/18 [Rx Confirmed 10/23/18] [facility] Medical History Essential hypertension (Chronic) Diverticula of colon (Chronic) Colitis (Chronic) Bronchitis (Acute) Atrial fibrillation with RVR (Acute) Rhinovirus (Acute) Severe sepsis (Acute) Acute respiratory insufficiency (Acute) DM2 (diabetes mellitus, type 2) (Chronic) Hyperlipidemia (Chronic) Inflammatory bowel disease (Chronic) Benign essential HTN (Chronic) Rheumatoid aortitis (Chronic) Hypertensive urgency (Resolved) Surgical History History of bilateral knee replacement (Resolved) History of back surgery (Resolved) Cervical vertebral fusion (Resolved) History of removal of cyst (Resolved) Family History Mother Heart disease Diabetes Father Heart disease Lung disease Brother Heart disease Lung disease Cancer prostate, pancreatic Sister Diabetes Cancer uterine Social History Smoking Status: Former smoker how long ago did patient quit smokin, 2ppd second hand exposure: Yes ROS Const Const: Negative for fatigue, weakness, body ache, fever(s), headache(s), chills, frequent falls, night sweats, daytime sleepiness, difficulty sleeping, excessive sweating, weight gain, weight loss, increased appetite, poor appetite, anorexia or other (Was in [facility] 09/17-09/25 with sepsis and afib/rvr. Feels much better.) Eyes Eyes: Negative for blind spots, loss of peripheral vision, transient loss of vision, blurry vision, change in vision, double vision, floaters, tunnel vision or other ENT ENT: Negative for dizziness, hearing loss, tinnitus, Nosebleed/epistaxis, balance problems, post nasal drip, lip swelling, tongue swelling, bleeding gums, hoarseness, neck pain, dry mouth, other or headache(s) Cardio Chest Pain: Yes (Has external soreness along rt sternal border after coughing so much) Palpitations: Yes (occasionally feels pounding) feels like its: pounding Edema: Bilateral (Very mild today, non-pitting.) Muscle aches with walking: None Resp Respiratory: Positive for SOB with activity (occasionally) and Cough (still has productive cough of yellow sputum from viral URI); negative for SOB at rest, SOB orthopnea\SOB lying down, Coughing up blood/hemoptysis, chest congestion, pain on inspiration, snoring, stridor, wheezing, crackles, paroxysmal nocturnal dyspnea or other GI GI: Negative nausea, vomiting, heartburn, constipation, belching, bloating, cramping, vomiting blood/hematemesis, bright, red blood in stools, black,tarry stools, loose stools, Difficulty Swallowing or other : Negative for hematuria, frequent nighttime urination/ nocturia, erectile dysfunction or abnormal vaginal bleeding Musc Musc: Negative for balance problems, muscle aches/ myalgia, muscle weakness or joint pain Skin Skin: Negative redness, non-healing lesions, rash, unusual bruising, skin ulcer, wounds, jaundice or other Neuro Neuro: Negative for blurry vision, double vision, dizziness, lightheadedness, near syncope, syncope, orthostatic symptoms, confusion, memory loss, restless legs, vertigo, seizures, lack of coordination, other, weakness, headache(s) or frequent falls Too Hematologic/Lymphatic: Negative for easy bleeding, easy bruising, enlarged lymph nodes or other Endo Endo: Negative for cold intolerance, heat intolerance, flushing, increased thirst/drinking, increased hunger, hair loss, hair growth, other, fatigue or excessive sweating Psych Psych: Negative for anxiety, depression, thoughts of harming anyone, thoughts of harming yourself, visual hallucinations, panic attacks or audible hallucinations Allergy Allergy/Immunology: Negative for lip swelling, Negative for tongue swelling, Negative for rash, Negative for throat swelling, Negative for hives Cardiology Exam Const Appearance: cooperative, healthy appearing and no acute distress Nutritional Appearance: well nourished Orientation: alert, oriented x3 and oriented to person Head Head: normal to inspection, atraumatic and normocephalic Nose: external nose normal Face and Sinus: face symmetric Mouth: oral mucosae normal Eyes General: appearance normal, both eyes and all related structures Eyelids: eyelids normal Conjunctivae: conjunctivae normal Pupils: PERRL and normal by confrontation EOM: EOM intact bilaterally Neck Neck: normal visual inspection and full ROM Carotids: normal carotid upstroke Chest Chest inspection: normal inspection of the chest Auscultation: Bilateral: Clear to Auscultation Cardio Palpation: normal PMI Rate: regular rate Rhythm: regular rhythm Heart sounds: S1 normal and S2 normal GI GI: normal to inspection, no hepatosplenomegaly and bowel sounds present Neuro General: alert, oriented x3, awake, CN's II-XI intact bilaterally and moves all extremities Skin Skin: no rashes or lesions noted Extremities Pulses: Normal: Right Femoral Pulse, Left Femoral Pulse, Right Dorsalis Pedis Pulse, Left Dorsalis Pedis Pulse, Right Posterior Tibial Pulse, Left Posterior Tibial Pulse, Right Radial Pulse, Left Radial Pulse Lower Extremity Edema: None: Bilateral Psych Psychological: normal affect Assessment AND Plan 1. Atrial fibrillation with RVR I48.91 Plan 1. Atrial fibrillation: The patient presented with rhinovirus acute respiratory infection with transient atrial fibrillation reverting back to normal sinus rhythm/sinus tachycardia prior to discharge in August 2018. EKG today demonstrates normal sinus rhythm. He has maintained normal sinus rhythm with the assistance of Cardizem and amiodarone and remains on Eliquis. His ejection fraction was 75%, the patient was found to have mild pulmonary hypertension. Would recommend increasing his Cardizem to 240 mg CD daily. In addition we will undergo a treadmill echocardiogram to assess him for coronary ischemia given his paroxysmal atrial fibrillation and risk factors. If this is grossly abnormal for ischemia, he may require a diagnostic coronary angiogram. Would recommend continuing anticoagulation and amiodarone at least for 6 months time. His most recent pulmonary function tests were normal. Orders Orders: 2. Hyperlipidemia E78.5 Plan 2. Hyperlipidemia: His LDL and HDL cholesterol are fairly well-controlled for his risk factors. Continue Zocor and omega-3 fatty acids. 3. Return office in 6 months. This note was generated using a voice recognition system and there may be incorrect words, spelling or punctuation that were not noted when reviewing the office note prior to saving. Plan Detail Other Orders Orders: Other Medications New: Refilled: Discontinued: omega-3 fatty acids-fish oil 300-1,000 mg Discontinued R1,000 mg PO DAILY supplement kathy: Duplicate Order Coding Level of Care Code Off vis,est,level 3 Diagnoses Atrial fibrillation with RVR I48.91 Hyperlipidemia E78.5 Coding Level of Care Code Off vis,est,level 3 Diagnoses Atrial fibrillation with RVR I48.91 Hyperlipidemia E78.5 Supplemental Info Supplemental Information Labs LDL Cholesterol 91 mg/dL (0-130) 09/20/18 HDL Cholesterol 44 mg/dL (40-) 09/20/18 Triglycerides 210 mg/dL (-199) H 09/20/18 VLDL Cholesterol 42 mg/dL (5-40) H 09/20/18 Diagnostics Electrocardiogram 10/23/18 Cardiac Tilt Table Test 02/07/17 Echocardiogram 09/20/18 Stress Test Nuclear Medicine 11/05/16 Chest X-Ray 09/21/18 Venous Doppler Study 01/22/18 Pulmonary Pulmonary Function Test 10/21/18 10/23/18 1158 <Electronically signed by Chuy Manjarrez MD> Date Chuy Manjarrez MD Cosigner Signature: Date (if applicable) CC: Jayme Harry MD 12 LEAD EKG PERFORMED Observed: 10/23/2018 Status: F Source: [place] [facility] 11:42 AM [facility] REPOSITORY [facility] [address] [place] [address] 12 Lead EKG performed by [facility] 10/23/18 1142 MR#: [id number] Acct: [id number] Name: MEGAN HOLLOWAY Rep #: [id number] : 1945 73 From: Chuy Manjarrez MD Attending Dr: Chuy Manjarrez MD Status: DEP AMB Ordering Dr: Chuy Manjarrez MD Date: 10/23/18 Location: [facility] Sex: M C Admitted: [facility]/12 Lead EKG performed by [facility] Sinus Rhythm - (probably not recent) Inferior and Old Anterior -lateral nfarct -Left axis secondary to infarct. ABNORMAL 10/24/18 0909 <Electronically signed by Chuy Manjarrez MD> Date Chuy Manjarrez MD CC: Jayme Harry MD Date Dictated: 10/23/18 1142 Date Transcribed: 10/23/18 114 Multiple Cut Off Saw Operator: FARZAD Signed PULMONARY FUNCTION Observed: 10/22/2018 Status: F Source: [place] REPORT COMP 6:08 AM [facility] REPOSITORY [facility] Pulmonary Services/Neurology [address] [place] [address] MR#: [id number] Acct: [id number] Name: MEGAN HOLLOWAY Rep #: [id number] : 1945 73 From: Aquiles Modi MD Referring Dr: Emerald Campos NP Status: REG CLI Ordering Dr: Date: Location: [facility] Sex: M C COMPLETE PULMONARY FUNCTION TEST INTERPRETATION Brief HPI: Patient is a 73 year old male, currently under the care of myself, who presents to [facility] for complete pulmonary function tests secondary to diagnosis of dyspnea. Respiratory therapist reports good effort and reproducible results. Interpretation: Forced expiration spirometry shows no large airways obstructive ventilatory defect with an FEV1 of 97% predicted. There is no significant bronchodilator response by strict ATS criteria. Spirograms are of good quality and plateau normally. The respiratory flow volume loop shows a normal pattern. Lung volumes by body plethysmography show an elevated total lung capacity at 6.75 L, 118% predicted. All other lung volumes are within normal limits. Diffusion capacity by carbon monoxide is normal at 120% predicted. The airway resistance is normal. No previous pulmonary function tests were available for review. Impression: These pulmonary function tests are within normal limits. 10/22/18 0608 <Electronically signed by Aquiles Modi MD> Date Aquiles Modi MD CC: Aquiles Modi MD; Emerald Harry MD Date Dictated: 10/21/18 1110 Date Transcribed: 10/21/18 111 Multiple Cut Off Saw Operator: SUDHIR Signed PULMONARY VISIT REPORT Observed: 10/10/2018 Status: F Source: [place] 4:00 PM [facility] REPOSITORY [facility] [address] [place] [address] OFFICE VISIT Date of Service: 10/10/18 MR#: [id number] Acct: [id number] Name: MEGNA HOLLOWAY Rep #: [id number] : 1945 Provider: Emerald Campos Age/Sex: 73/M Location: [facility].PM[facility] Status: Signed Assessment AND Plan 1. SUPA (obstructive sleep apnea) G47.33 Plan Deteriorated. The patient is currently being treated with CPAP of 7 cm of water but he has persistent symptoms of suboptimal treatment of his SUPA. He is agreeable to a titration study and adjustment of settings if necessary. Follow-up with Dr. Modi in approximately 6 weeks to discuss test results and to evaluate patient's response. Orders Orders: 2. Pulmonary hypertension I27.20 Plan New. Discussed the impact of pulmonary hypertension on the patient's breathing. Also identified possible causes, plan to obtain a pulmonary function test at this point. Follow-up with Dr. Modi in 6 weeks, at which time they can discuss test results. 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 3. Atrial fibrillation with RVR I48.91 Plan Complicates exam, plan, care and prognosis. Exam indicated regular rhythm today. 4. Bronchitis J40 Plan Obtaining pulmonary function test to accurately diagnose asthma/COPD/chronic bronchitis? Follow-up with Dr. Modi in 6 weeks, patient admits that he has not been using his Flovent as prescribed. Instructed him since he has not been using the medication to hold off until PFTs can be reviewed, after which we can determine appropriate maintenance medications. Plan Detail Other Orders Orders: Follow Up 6 Weeks ([facility]) [facility] FU: Chief Complaint: Shortness of breath [facility] Comments Details: This is a 73 year old very pleasant M, currently under the care of Jayme Harry MD, here to follow up after a recent hospitalization at [facility], from September 17 - September 25, 2018 for A. fib with RVR, rhinovirus, severe sepsis and acute respiratory failure. The hospital stay was complicated by A. fib with RVR and respiratory failure requiring supplemental oxygen. 20 pages of hospital documentation was reviewed, and found to be significant for echocardiogram showed an EF of 75% with an RVSP of 40 mmHg, CT of the chest completed on September 21 negative for any pulmonary abnormality, chest x-ray completed on September 21 showed no acute thoracic pathology, respiratory panel positive for rhinovirus. Upon discharge, the patient completed a 12 day course of prednisone. Today, he presents the office ambulatory, currently on room air and accompanied by his . He states that he continues to orient fatigued and shortness of breath on exertion. He feels somewhat improved since hospital discharge. He denies any shortness of breath with rest or conversation. He does not currently have a cough, sputum production or hemoptysis. He denies any wheezing, chest tightness, chest pain or palpitations. He denies any fever, chills or body aches. He does not feel rested upon arising in the morning. His reports that he snores through the Pap. He is falling asleep easily while watching TV. He is napping daily for several hours. He has 3-4 episodes of nocturia nightly. Polysomnogram completed on December 11, 2017 showed an overall AHI of 15.8 events per hour, the patient was started on CPAP therapy and it was recommended that he be treated with a CPAP of 7 cm of water with a 2 L/min oxygen bleed. Intake Vital Signs10/10/18 Height 5 ft 6.5 in 10/10/18 Weight: 208 lb Intake Visit Reasons: Hospital FU [facility] Vendor: [facility] Accompanied by: Allergies aspirin Allergy (Verified 10/10/18 08:37) Swelling morphine Adverse Reaction (Verified 10/10/18 08:37) UNABLE TO URINATE Medications Gabapentin [Neurontin] 600 mg PO BID 07/20/13 [History Confirmed 10/10/18] Finasteride [Proscar] 5 mg PO DAILY 03/14/15 [History Confirmed 10/10/18] Chlorthalidone [Hygroton] 50 mg PO DAILY 12/24/16 [History Confirmed 10/10/18] Infliximab-DYYB [Inflectra] 100 mg IV .COMPLEX 02/18/17 [History Confirmed 10/10/18] Esomeprazole Magnesium [Nexium 24Hr] 22.3 mg PO DAILY 04/15/17 [History Confirmed 10/10/18] Loratadine [Claritin] 10 mg PO QHS 04/15/17 [History Confirmed 10/10/18] Albuterol Sulfate [Ventolin Hfa] 2 puff INHALATION BID 01/22/18 [History Confirmed 10/10/18] Clonidine HCl [Catapres] 0.2 mg PO BID 01/22/18 [History Confirmed 10/10/18] Glimepiride [Amaryl] 2 mg PO DAILY 01/22/18 [History Confirmed 10/10/18] Balsalazide Disodium 2,250 mg PO BID 09/17/18 [History Confirmed 10/10/18] Calcium (Elemental) [Os-Abiel 500] 500 mg PO DAILY@0800 09/17/18 [History Confirmed 10/10/18] Duloxetine HCl 60 mg PO DAILY 09/17/18 [History Confirmed 10/10/18] Ipratropium/Albuterol Sulfate [Iprat-Albut 0.5-3(2.5) mg/3 ml] 3 ml INHALATION Q4H PRN PRN 09/17/18 [History Confirmed 10/10/18] Metformin HCl 1,000 mg PO BID 09/17/18 [History Confirmed 10/10/18] Multivit-Min/FA/Lycopen/Lutein [Centrum Silver Men Tablet] 1 ea PO DAILY 09/17/18 [History Confirmed 10/10/18] [place]-3 Fatty Acids/Fish Oil [[place] 3 1,000 mg Softgel] 1,000 mg PO DAILY 09/17/18 [History Confirmed 10/10/18] [place]-3 Fatty Acids/Fish Oil [[place] 3 1,000 mg Softgel] 2,000 mg PO QHS 09/17/18 [History Confirmed 10/10/18] Acetaminophen [Tylenol Tablet] 650 mg PO Q6H PRN PRN tab 09/25/18 [Rx Confirmed 10/10/18] Amiodarone HCl [Cordarone] 200 mg PO DAILY #30 tab 09/25/18 [Rx Confirmed 10/10/18] Apixaban [Eliquis] 5 mg PO BID #60 tab 09/25/18 [Rx Confirmed 10/10/18] Benzonatate [Tessalon Perle] 100 mg PO TID PRN PRN #30 cap 09/25/18 [Rx Confirmed 10/10/18] Diltiazem CD [Cardizem CD] 180 mg PO DAILY #30 cap 09/25/18 [Rx Confirmed 10/10/18] Guaifenesin [Mucinex] 1,200 mg PO BID #20 tab 09/25/18 [Rx Confirmed 10/10/18] Hydrocodone Bit/Homatropine [Hycodan Syrup] 5 ml PO QHS PRN #100 ml 09/25/18 [Rx Confirmed 10/10/18] Lisinopril [Zestril] 40 mg PO DAILY #30 tab 09/25/18 [Rx Confirmed 10/10/18] Simvastatin 40 mg PO QHS #30 tab 09/25/18 [Rx Confirmed 10/10/18] [facility] Medical History Diverticula of colon (Chronic) Colitis (Chronic) Bronchitis (Acute) Atrial fibrillation with RVR (Acute) Hypertensive urgency (Acute) Rhinovirus (Acute) Severe sepsis (Acute) Acute respiratory insufficiency (Acute) DM2 (diabetes mellitus, type 2) (Chronic) Hyperlipidemia (Chronic) Inflammatory bowel disease (Chronic) Benign essential HTN (Chronic) Rheumatoid aortitis (Chronic) Surgical History History of bilateral knee replacement (Resolved) History of back surgery (Resolved) Cervical vertebral fusion (Resolved) History of removal of cyst (Resolved) Family History Mother Heart disease Diabetes Father Heart disease Lung disease Brother Heart disease Lung disease Cancer prostate, pancreatic Sister Diabetes Cancer uterine Social History Smoking Status: Former smoker how long ago did patient quit smokin, 2ppd second hand exposure: Yes Review of Systems Const CONSTITUTIONAL: Positive daytime sleepiness (freq naps) and fatigue; negative anorexia, body ache, chills, fever(s), night sweats, oral thrush, stops breathing during sleep, weight loss, sleeping in chair, weight loss, weight gain, frequent colds, seasonal allergies, other, headache(s) or orthopnea EETM Ear Nose Throat Mouth: Positive hearing normal and nasal discharge; negative hard of hearing, hoarseness, dry mouth in morning, change in vision, itchy eyes, eye pain, swallowing Difficulty, ear pain, nose bleed, headache(s), mouth pain, nasal congestion, post nasal drip, sinus pain, sinus pressure, sore throat or other Cardio Cardiovascular: Negative chest pain, chest pain at rest, chest pain with activity, irregular heart rhythm, edema, shortness of breath when lying down, palpitations, murmur or other Resp Respiratory: Positive as per HPI, shortness of breath shortness of breath: Positive with activity, pain with cough (ribs), cough cough: Positive productive color: Positive thick, yellow and white and chest tightness; negative wheezing, chest congestion, pain on inspiration, inhalers, increase use of rescue inhalers, snoring, apnea or other Gastro Gastrointestional: Negative bloody stools, change in appetite, difficulty swallowing, reflux, hematemesis, melena stool, loose stool, constipation or other Genitourinary: Positive nocturia (2-3X/night); negative blood in urine, pain with urination or other Musc Musculoskeletal: Negative body pain, back pain, neck pain or other Skin/Breast Skin/Breast: Negative dry skin, itching, rash, unusual bruising, breast lump or other Neuro Neurological: Positive weakness; negative restless legs, confusion or other Psych Psychocological: Negative abnormal sleep pattern, anxiety, thoughts of hurting self/others, hopelessness or other Lymph Lymphatic: Negative easy bleeding, easy bruising, swollen lymph nodes or other Exam Const Constitutional: Positive conversant, cooperative, in no acute respiratory distress, well developed, well nourished and good hygiene Head Head: Positive normocephalic and atraumatic; negative cyanosis of lips/distal nose Eyes Eye: Positive clear conjunctiva; negative nystagmus or scleral abnormality Ears Ear: Positive hearing normal and external ears normal; negative hard of hearing Nose Nose: Positive external nose normal and no nasal discharge; negative epistaxis Mouth Mouth: Positive oral mucosae normal, no lesions and crowded posterior oropharynx; negative post nasal drip, malodorous breath or oral thrush present Mallampati Score: III: Mallampati Score Neck Neck: Positive normal visual inspection, full ROM and trachea midline; negative lymphadenopathy, JVD or tender Chest Wall Chest: Positive normal inspection of the chest and symmetric chest movement; negative increased A/P diameter Resp lung sounds: Positive clear to auscultation, diminished, normal expiratory time and normal respiratory effort; negative wheezes, rhonchi, rales, dullness to percussion or wheeze present on forced exhalation Cardio Cardiac: Positive regular rate, regular rhythm, S1 normal and S2 normal; negative murmur GI GI: Positive normal to inspection; negative distended Genitourinary: Positive deferred Musc Musculoskeletal: Positive steady gait and ROM normal; negative kyphosis or scoliosis Skin Pulmonary Skin Exam: Positive intact; negative rash Pulses Pulse: Yes pulses normal x4 extremities Extremities Extremities: Yes capillary refill normal, No clubbing, No cyanosis, No edema Neuro Neurologic: Yes conversant, Yes no focal neuro deficits, Yes normal concentration, Yes understands questions, Yes cooperative, Yes normal cognition, Yes normal coordination, No tremor Lymph Lymphatic: No lymphadenopathy, No tenderness, No cervical adenopathy Psych Appearance: Positive grossly normal, eye contact and well kempt Mental Status: Positive mental status grossly normal Mood: Positive congruent mood Affect: Positive normal affect Coding Level of Care Code Off vis,est,level 4 Diagnoses SUPA (obstructive sleep apnea) G47.33 Pulmonary hypertension I27.20 Atrial fibrillation with RVR I48.91 Bronchitis J40 10/10/18 1600 <Electronically signed by Emerald GUDINO> Date Emerald GUDINO Cosigner Signature: Date (if applicable) CC: Jayme Harry MD DISCHARGE SUMMARY Observed: 09/25/2018 Status: F Source: [place] 12:21 PM [facility] REPOSITORY [facility] Medical Records Department [address] [place] [address] Discharge Summary 09/25/18 1217 MR#: [id number] Acct: [id number] Name: MEGAN HOLLOWAY Rep #: [id number] : 1945 73 From: Rico Tilley DO PCP: Jayme Harry MD Status: ADM IN Location: [place] [address] Discharge Date and Diagnosis - Problem List Patient Problems: Active and Suspected Problems Atrial fibrillation with RVR (Acute) Rhinovirus (Acute) Severe sepsis (Acute) Acute respiratory insufficiency (Acute) Date of Admission: 09/17/18 Date of Discharge: 09/25/18 - Primary Discharge Diagnosis Active and Suspected Problems Atrial fibrillation with RVR (Acute) Rhinovirus (Acute) Severe sepsis (Acute) Acute respiratory insufficiency (Acute) - Secondary Discharge Diagnosis Chronic Problems DM2 (diabetes mellitus, type 2) (Chronic) Hyperlipidemia (Chronic) Inflammatory bowel disease (Chronic) Benign essential HTN (Chronic) Rheumatoid aortitis (Chronic) Hospital Course and Treatment Imaging Results: Clinical Impression(s) from Imaging Studies Chest X-Ray 09/17/18 20:04 IMPRESSION: Normal x-ray examination of the chest. Electronically Signed: Estuardo Gotti MD at 20:56 EST , Service support , Soft Tissue Neck CT 09/18/18 14:36 IMPRESSION: Mild degree of sinusitis. Electronically Signed: Shad Macias MD at 15:51 EST Tel [phone], Service support , Chest X-Ray 09/21/18 14:53 IMPRESSION: No acute thoracic pathology. Electronically Signed: Evin Baldwin at 15:20 EST Tel , Service support , Chest CT 09/21/18 20:32 IMPRESSION: Coronary arterial calcifications are present. There are calcified plaques of the thoracic aorta. There are diffuse degenerative changes of the visualized thoracolumbar spine. There are posterior spinal fusion changes of the visualized lower cervical region. There are several nonobstructing calculi in the upper pole of the left kidney measuring up to 3 mm. There is a 2.0 cm low-attenuation nodule of the left adrenal most likely representing a benign adenoma. Electronically Signed: Remy Leary MD at 21:37 EST , Service support , Chuy Manjarrez MD: cardiology Aquiles Rian, MD: pulmonology. Operations: None Procedures: 2-D Echocardiogram Summary of Care Provided: The patient is a 73 year old M presents with shortness of breath. Had afib with RVR that was protracted. Complicated by respiratory insufficiency. [] 1. Acute hypoxic respiratory insufficiency * Did drop down to 89% * Secondary to acute rhinovirus bronchitis, bronchiectasis and asthma * Continue with steroids, 12-14 day taper * Back on oxygen. * follow up with Dr. Modi et. al., as outpt 2. Severe sepsis * Present on admission * Patient met sepsis criteria on admission but also had lactic acidosis * Improving * Secondary to rhinovirus 3. Acute rhinovirus infection * Resolving 4. Atrial fibrillation with RVR * ongoing * Amio 200, Dilt 180 * Echo with EF 75% * Cardiology follow up 5. Acute exacerbation of bronchiectasis * pulm follow up Patient Problems: Active and Suspected Problems Atrial fibrillation with RVR (Acute) Rhinovirus (Acute) Severe sepsis (Acute) Acute respiratory insufficiency (Acute) Subjective: coughing up some yellow phlegm. - Physical Exam General: Alert, Cooperative, No apparent distress HEENT: Atraumatic, Normocephalic Oral: Moist Mucosa, No Gingival or Mucosal Lesions/ Ulcerations Neck: No Nodes, Thyroid Normal Size and Texture Lungs: Clear to auscultation, Normal air movement, No rhonchi, No wheeze Cardiovascular: Regular rate, Regular Rhythm, Normal S1, Normal S2, No murmurs Abdomen: Bowel Sounds Present, Soft, Non Tender, Non-Distended, No Hepato-splenomegaly Extremities: No edema, No Calf Tenderness Psych/Mental Status: Normal Affect, Appropriate Vital Signs Temp Pulse Resp BP Pulse Ox 36.4 C L 114 H 20 H 156/83 H 92 09/25/18 08:32 09/25/18 08:32 09/25/18 08:32 09/25/18 08:32 09/25/18 11:16 Oxygen Flow Rate (L/min) [ 2 AMBULATION with Oxygen] Oxygen Flow Rate (L/min) [ 0 AMBULATING on Room Air] Oxygen Flow Rate (L/min) [At 0 REST on Room Air] Oxygen Flow Rate (L/min) 2 Oxygen Delivery Method Nasal Cannula Weight: 95.5 kg Body Mass Index (BMI) 33.0 Finger Stick Blood Glucose 151 Intake and Output for Last 24 Hours Intake Total 1400.1 / 1400.1 1200 / 1200 Output Total 1200 / 1200 Balance 200.1 / 200.1 1200 / 1200 Microbiology Past 72 Hours 09/17/18 20:00 Blood Culture - Final Laboratory Tests Past 24 Hrs WBC 10.0 RBC 3.87 L Hgb 11.6 L Hct 35.2 L MCV 91.0 MCH 30.0 MCHC 33.0 POC Glucose POC Glucose 167 H 126 H 304 H POC Glucose 304 H Discharge Diet: Low fat/ Low Cholesterol, 1800 Calorie Control Diet Discharge Activity: Return to Normal Activity Call your doctor if you observe: Fever of 101 or Higher, Shortness of breath, Chest pain Home Medications: Medications to take at Discharge Gabapentin [Neurontin] 600 mg PO BID 07/20/13 Finasteride [Proscar] 5 mg PO DAILY 03/14/15 Chlorthalidone [Hygroton] 50 mg PO DAILY 12/24/16 Infliximab-DYYB [Inflectra] 100 mg IV .COMPLEX 02/18/17 Esomeprazole Magnesium [Nexium 24Hr] 22.3 mg PO DAILY 04/15/17 Loratadine [Claritin] 10 mg PO QHS 04/15/17 Albuterol Sulfate [Ventolin Hfa] 2 puff INHALATION BID 01/22/18 Clonidine HCl [Catapres] 0.2 mg PO BID 01/22/18 Glimepiride [Amaryl] 2 mg PO DAILY 01/22/18 Balsalazide Disodium 2,250 mg PO BID 09/17/18 Calcium (Elemental) [Os-Abiel 500] 500 mg PO DAILY@0800 09/17/18 Duloxetine HCl 60 mg PO DAILY 09/17/18 Ipratropium/Albuterol Sulfate [Iprat-Albut 0.5-3(2.5) mg/3 ml] 3 ml INHALATION Q4H PRN PRN 09/17/18 Metformin HCl 1,000 mg PO BID 09/17/18 Multivit-Min/FA/Lycopen/Lutein [Centrum Silver Men Tablet] 1 each PO DAILY 09/17/18 [place]-3 Fatty Acids/Fish Oil [[place] 3 1,000 mg Softgel] 1,000 mg PO DAILY 09/17/18 [place]-3 Fatty Acids/Fish Oil [[place] 3 1,000 mg Softgel] 2,000 mg PO QHS 09/17/18 Acetaminophen [Tylenol Tablet] 650 mg PO Q6H PRN PRN tablet 09/25/18 Amiodarone HCl [Cordarone] 200 mg PO DAILY #30 tablet 09/25/18 Apixaban [Eliquis] 5 mg PO BID #60 tablet 09/25/18 Benzonatate [Tessalon Perle] 100 mg PO TID PRN PRN #30 capsule 09/25/18 Diltiazem CD [Cardizem CD] 180 mg PO DAILY #30 capsule 09/25/18 Guaifenesin [Mucinex] 1,200 mg PO BID #20 tablet 09/25/18 Hydrocodone Bit/Homatropine [Hycodan Syrup] 5 ml PO QHS PRN #100 ml 09/25/18 Lisinopril [Zestril] 40 mg PO DAILY #30 tablet 09/25/18 Prednisone 10 mg PO DAILY #12 tablet 09/25/18 Simvastatin 40 mg PO QHS #30 tablet 09/25/18 Following Prescrptions Were Given to Patient: Amiodarone HCl [Cordarone] 200 mg PO DAILY #30 tablet Benzonatate [Tessalon Perle] 100 mg PO TID PRN PRN #30 capsule PRN Reason: COUGH Diltiazem CD [Cardizem CD] 180 mg PO DAILY #30 capsule Hydrocodone Bit/Homatropine [Hycodan Syrup] 5 ml PO QHS PRN #100 ml PRN Reason: Cough Lisinopril [Zestril] 40 mg PO DAILY #30 tablet Prednisone 10 mg PO DAILY #12 tablet Simvastatin 40 mg PO QHS #30 tablet Apixaban [Eliquis] 5 mg PO BID #60 tablet Guaifenesin [Mucinex] 1,200 mg PO BID #20 tablet Primary Care Physician: Jayme Harry MD [Primary Care Provider] - Within 2 Weeks Please Follow Up With: Emerald Campos NP-C - pulmonary When: 2 weeks Please Follow Up With: heart group When: 2-4 weeks Patient Instructions: What Is Atrial Flutter/Atrial Fibrillation?, Your High Blood Pressure Risk Factors, Discharge Instructions for Atrial Fibrillation Disposition: Home Minutes spent on discharge:: 35 Patient Condition:: Fair Medical Necessity - Tobacco Use Smoking Status: Former smoker Meaningful Use Info Meaningful Use Diagnoses (Choose all that apply): None applicable Code Visit Inpatient E AND M: 19665 Disch Hosp 09/25/18 1221 <Electronically signed by Rico Tilley DO> Date Rico Tilley DO Cosigner Signature (if applicable): Date CC: Rico Tilley DO; Jayme Harry MD Signed DISCHARGE INSTRUCTION Observed: 09/25/2018 Status: F Source: [place] 12:17 PM [facility] REPOSITORY [facility] Medical Records Department [address] [place] [address] Instructions for Home/Discharge Instructions 09/25/18 1212 MR#: [id number] Acct: [id number] Name: MEGAN HOLLOWAY Derrick Rep #: [id number] : 1945 73 From: Rico Tilley DO PCP: Jayme Harry MD Status: ADM IN - Discharge Diagnoses Current Active Problems: Current Active and Chronic Problems Atrial fibrillation with RVR (Acute) Rhinovirus (Acute) Severe sepsis (Acute) Acute respiratory insufficiency (Acute) You will use the following diet at home:: Calorie/Carbohydrate Controlled (specify 1200, 1400, etc) - 1800, Cardiac Your food should be the consistency of: Regular Your liquids should be the consistency of: Regular/Thin Discharge Activity: Return to Normal Activity Call your doctor if you observe: Fever of 101 or Higher, Shortness of breath, Chest pain Instructions: What Is Atrial Flutter/Atrial Fibrillation?, Your High Blood Pressure Risk Factors, Discharge Instructions for Atrial Fibrillation Additional Instructions: Oxygen continuous 2liters/minute. CPAP QHS. Allergies/Adverse Reactions: Allergies aspirin Allergy (Verified 09/17/18 20:04) Swelling morphine Adverse Reaction (Verified 09/17/18 20:04) UNABLE TO URINATE Medications to take at Discharge Gabapentin [Neurontin] 600 mg PO BID 07/20/13 Finasteride [Proscar] 5 mg PO DAILY 03/14/15 Chlorthalidone [Hygroton] 50 mg PO DAILY 12/24/16 Infliximab-DYYB [Inflectra] 100 mg IV .COMPLEX 02/18/17 Esomeprazole Magnesium [Nexium 24Hr] 22.3 mg PO DAILY 04/15/17 Loratadine [Claritin] 10 mg PO QHS 04/15/17 Albuterol Sulfate [Ventolin Hfa] 2 puff INHALATION BID 01/22/18 Clonidine HCl [Catapres] 0.2 mg PO BID 01/22/18 Glimepiride [Amaryl] 2 mg PO DAILY 01/22/18 Balsalazide Disodium 2,250 mg PO BID 09/17/18 Calcium (Elemental) [Os-Abiel 500] 500 mg PO DAILY@0800 09/17/18 Duloxetine HCl 60 mg PO DAILY 09/17/18 Ipratropium/Albuterol Sulfate [Iprat-Albut 0.5-3(2.5) mg/3 ml] 3 ml INHALATION Q4H PRN PRN 09/17/18 Metformin HCl 1,000 mg PO BID 09/17/18 Multivit-Min/FA/Lycopen/Lutein [Centrum Silver Men Tablet] 1 each PO DAILY 09/17/18 [place]-3 Fatty Acids/Fish Oil [[place] 3 1,000 mg Softgel] 1,000 mg PO DAILY 09/17/18 [place]-3 Fatty Acids/Fish Oil [[place] 3 1,000 mg Softgel] 2,000 mg PO QHS 09/17/18 Acetaminophen [Tylenol Tablet] 650 mg PO Q6H PRN PRN tablet 09/25/18 Amiodarone HCl [Cordarone] 200 mg PO DAILY #30 tablet 09/25/18 Apixaban [Eliquis] 5 mg PO BID #60 tablet 09/25/18 Benzonatate [Tessalon Perle] 100 mg PO TID PRN PRN #30 capsule 09/25/18 Diltiazem CD [Cardizem CD] 180 mg PO DAILY #30 capsule 09/25/18 Guaifenesin [Mucinex] 1,200 mg PO BID #20 tablet 09/25/18 Hydrocodone Bit/Homatropine [Hycodan Syrup] 5 ml PO QHS PRN #100 ml 09/25/18 Lisinopril [Zestril] 40 mg PO DAILY #30 tablet 09/25/18 Prednisone 10 mg PO DAILY #12 tablet 09/25/18 Simvastatin 40 mg PO QHS #30 tablet 09/25/18 The following prescriptions were given: Amiodarone HCl [Cordarone] 200 mg PO DAILY #30 tablet Benzonatate [Tessalon Perle] 100 mg PO TID PRN PRN #30 capsule PRN Reason: COUGH Diltiazem CD [Cardizem CD] 180 mg PO DAILY #30 capsule Hydrocodone Bit/Homatropine [Hycodan Syrup] 5 ml PO QHS PRN #100 ml PRN Reason: Cough Lisinopril [Zestril] 40 mg PO DAILY #30 tablet Prednisone 10 mg PO DAILY #12 tablet Simvastatin 40 mg PO QHS #30 tablet Apixaban [Eliquis] 5 mg PO BID #60 tablet Guaifenesin [Mucinex] 1,200 mg PO BID #20 tablet Primary Care Physician: Jayme Harry MD [Primary Care Provider] - Within 2 Weeks Test Results: Test results from this visit will be discussed in further detail at your follow-up appointment, if applicable. Please Follow Up With: Emerald Campos NP-C - pulmonary When: 2 weeks Please Follow Up With: heart group When: 2-4 weeks Proposed Discharge Date: 09/25/18 09/25/18 1217 <Electronically signed by Rico Tilley DO> Date Rico Tilley DO CC: Aquiles Modi MD; Chuy Manjarrez MD; Jayme Harry MD Signed BEDSIDE GLUCOSE Collected: 09/25/2018 Status: F Source: DOM 11:31 AM [facility] REPOSITORY TYPE CODE TESTS RESULT OUT OF REFERENCE UNITS RANGE LAB L501.080 70-110 mg/dL High BEDSIDE GLU 167 Result Comment: MANAGEMENT OF PATIENT CARE PER NURSING PROTOCOL Performed By: #### L501.080 #### [facility] Point of Care [address] [place] [address] BEDSIDE GLUCOSE Collected: 09/25/2018 Status: F Source: DOM 6:46 AM [facility] REPOSITORY TYPE CODE TESTS RESULT OUT OF REFERENCE UNITS RANGE LAB L501.080 70-110 mg/dL High BEDSIDE GLU 126 Result Comment: MANAGEMENT OF PATIENT CARE PER NURSING PROTOCOL Performed By: #### L501.080 #### [facility] Point of Care [address] [place], [place] [address] BASIC METABOLIC Collected: 09/25/2018 Status: F Source: DOM PROFILE (BMP) 5:30 AM [facility] REPOSITORY TYPE CODE TESTS RESULT OUT OF RANGE REFERENCE UNITS LAB L501.0100 74-106 mg/dL High GLU 132 Result Comment: Fasting Glucose result greater than or equal to 126 mg/dL suggests DIABETES MELLITUS per A.D.A. criteria. Please note revised GLUCOSE reference range effective 2017. LAB L501.1000 7-18 mg/dL High BUN 32 LAB L501.1100 0.70-1.30 mg/dL Normal CREAT,SERUM 1.25 Result Comment: The validity of the calculated GFR AND GFRAA in patients over 70 years has not been determined. Clinical correlation is essential. LAB L501.1110 >60 mL/min Normal EST GFR 60 Result Comment: Non- GFR Calc LAB L501.1115 >60 mL/min Normal EST GFR - AA 73 Result Comment: GFR Calc LAB L501.1255 ml/min Normal Estimated CRCL 48.47 LAB L501.1300 10-20 RATIO High BUN/CRE 25.6 LAB L501.2200 8.5-10 mg/dL Normal .1 CA 8.6 LAB L501.5300 136-14 mmol/L Normal 5 NA 143 LAB L501.5600 3.5-5. mmol/L Normal 1 K 3.9 LAB L501.5900 98-107 mmol/L Normal CL 105 LAB L501.6100 21.0-3 mmol/L Normal 2.0 CO2 29.0 LAB L501.6200 5-15 Normal GAP 9 Performed By: #### L500.2500 #### [facility] [address] [place], [place], [address] CBC W/DIFF, AUTOMATED Collected: 09/25/2018 Status: F Source: DOM 5:30 AM [facility] REPOSITORY TYPE CODE TESTS RESULT OUT OF RANGE REFERENCE UNITS LAB L100.1000 4.4-11.0 K/mm3 Normal WBC 10.0 LAB L100.1200 4.6-6.2 M/mm3 Low RBC 3.87 LAB L100.1300 13.0-16.5 g/dl Low HGB 11.6 LAB L100.1400 40-54 % Low HCT 35.2 LAB L100.1500 80-94 fL Normal MCV 91.0 LAB L100.1600 27.0-32.0 pg Normal MCH 30.0 LAB L100.1700 32-36 g/gl Normal MCHC 33.0 LAB L100.1810 11.6-14.6 % High RDW CV 16.1 LAB L100.1820 35.1-43.9 fl High RDW SD 52.5 LAB L100.1900 150-450 K/mm3 Normal PLT 189 LAB L100.2000 6.2-12.0 fl Normal MPV 11.2 LAB L100.2100 47-70 % High NEUT% 75.9 LAB L100.2200 19-41 % Low LY% 15.3 LAB L100.2300 0-10 % Normal MONO% 8.1 LAB L100.2400 0-5 % Normal EO% 0.4 LAB L100.2500 0-1 % Normal BASO% 0.0 LAB L100.2550 0.0-0.9 % Normal IM GRAN % 0.300 Result Comment: IG% - Immature Granulocytes (promyelocytes, myelocytes and metamyelocytes) > 1% indicates that a LEFT SHIFT is Present. LAB L100.2620 2.0-7.7 X10 3/uL Normal Absolute Neut 7.6 LAB L100.2720 0.83-4.51 X10 3/ul Normal Absolute Lymph 1.52 Performed By: #### L100.0100 #### [facility] [address] [facility] [place], [address] BEDSIDE GLUCOSE Collected: 09/24/2018 Status: F Source: [place] 8:59 PM [facility] REPOSITORY TYPE CODE TESTS RESULT OUT OF REFERENCE UNITS RANGE LAB L501.080 70-110 mg/dL High BEDSIDE GLU 304 Result Comment: MANAGEMENT OF PATIENT CARE PER NURSING PROTOCOL Performed By: #### L501.080 #### [facility] Point of Care [address] [place] [address] BEDSIDE GLUCOSE Collected: 09/24/2018 Status: F Source: DOM 5:03 PM [facility] REPOSITORY TYPE CODE TESTS RESULT OUT OF REFERENCE UNITS RANGE LAB L501.080 70-110 mg/dL High BEDSIDE GLU 304 Result Comment: MANAGEMENT OF PATIENT CARE PER NURSING PROTOCOL Performed By: #### L501.080 #### [facility] Point of Care [address] [place] [address] 12 LEAD ELECTROCARDIOGRAM Observed: 09/24/2018 Status: F Source: [place] 2:57 PM [facility] REPOSITORY [facility] Cardiovascular Services [address] [place] [address] 12 Lead EKG 09/19/18 1015 MR#: [id number] Acct: [id number] Name: MEGAN HOLLOWAY Rep #: [id number] : 1945 73 From: Chuy Manjarrez MD Attending Dr: Rico Tilley DO Status: ADM IN Ordering Dr: Kimmie Nur MD Date: 09/19/18 Location: U Sex: M C Admitted: 09/17/18 Test Reason : CP Blood Pressure : / mmHG Vent. Rate : 100 BPM Atrial Rate : 100 BPM P-R Int : 174 ms QRS Dur : 080 ms QT Int : 344 ms P-R-T Axes : 035 -37 -15 degrees QTc Int : 443 ms Normal sinus rhythm Left axis deviation Inferior infarct , age undetermined Anteroseptal infarct , age undetermined Abnormal ECG When compared with ECG of 18-SEP-2018 05:46, MANUAL COMPARISON REQUIRED, DATA IS UNCONFIRMED Confirmed by CHUY MANJARREZ ([id number]), design editor MANA MILLER ([id number]) on 09/24/2018 2:57:22 PM Referred By: Kimmie Nur Confirmed By:CHUY MANJARREZ 09/24/18 8106 Date Chuy Manjarrez MD CC: Rico Tilley DO; Kimmie Nur MD; Jayme Harry MD Signed BEDSIDE GLUCOSE Collected: 09/24/2018 Status: F Source: DOM 11:06 AM [facility] REPOSITORY TYPE CODE TESTS RESULT OUT OF REFERENCE UNITS RANGE LAB L501.080 70-110 mg/dL High BEDSIDE GLU 174 Result Comment: MANAGEMENT OF PATIENT CARE PER NURSING PROTOCOL Performed By: #### L501.080 #### [facility] Point of Care [address] [place], [place] [address] CBC W/DIFF, AUTOMATED Collected: 09/24/2018 Status: F Source: DOM 7:02 AM [facility] REPOSITORY TYPE CODE TESTS RESULT OUT OF RANGE REFERENCE UNITS LAB L100.1000 4.4-11.0 K/mm3 High WBC 21.0 LAB L100.1200 4.6-6.2 M/mm3 Low RBC 4.47 LAB L100.1300 13.0-16.5 g/dl Normal HGB 13.4 LAB L100.1400 40-54 % Low HCT 39.8 LAB L100.1500 80-94 fL Normal MCV 89.0 LAB L100.1600 27.0-32.0 pg Normal MCH 30.0 LAB L100.1700 32-36 g/gl Normal MCHC 33.7 LAB L100.1810 11.6-14.6 % High RDW CV 15.7 LAB L100.1820 35.1-43.9 fl High RDW SD 50.3 LAB L100.1900 150-450 K/mm3 Normal PLT 221 LAB L100.2000 6.2-12.0 fl Normal MPV 10.8 LAB L100.2100 47-70 % High NEUT% 83.7 LAB L100.2200 19-41 % Low LY% 9.6 LAB L100.2300 0-10 % Normal MONO% 6.5 LAB L100.2400 0-5 % Normal EO% 0.0 LAB L100.2500 0-1 % Normal BASO% 0.0 LAB L100.2550 0.0-0.9 % Normal IM GRAN % 0.200 Result Comment: IG% - Immature Granulocytes (promyelocytes, myelocytes and metamyelocytes) > 1% indicates that a LEFT SHIFT is Present. LAB L100.2620 2.0-7.7 X10 3/uL High Absolute Neut 17.5 LAB L100.2720 0.83-4.51 X10 3/ul Normal Absolute Lymph 2.01 Performed By: #### L100.0100, L500.2500 #### [facility] [address] [facility] [address] [place], [place], [address] BASIC METABOLIC Collected: 09/24/2018 Status: F Source: DOM PROFILE (BMP) 7:02 AM [facility] REPOSITORY TYPE CODE TESTS RESULT OUT OF RANGE REFERENCE UNITS LAB L501.0100 74-106 mg/dL High GLU 118 Result Comment: Fasting Glucose result from 100 to 125 mg/dL suggests IMPAIRED HOMEOSTASIS per A.D.A. criteria. Please note revised GLUCOSE reference range effective 2017. LAB L501.1000 7-18 mg/dL High BUN 36 LAB L501.1100 0.70-1.30 mg/dL High CREAT,SERUM 1.45 Result Comment: The validity of the calculated GFR AND GFRAA in patients over 70 years has not been determined. Clinical correlation is essential. LAB L501.1110 >60 mL/min Low EST GFR 51 Result Comment: Non- GFR Calc LAB L501.1115 >60 mL/min Normal EST GFR - AA 61 Result Comment: GFR Calc LAB L501.1255 ml/min Normal Estimated CRCL 41.79 LAB L501.1300 10-20 RATIO High BUN/CRE 24.8 LAB L501.2200 8.5-10 mg/dL Normal .1 CA 8.9 LAB L501.5300 136-14 mmol/L Normal 5 NA 137 LAB L501.5600 3.5-5. mmol/L Normal 1 K 3.7 LAB L501.5900 98-107 mmol/L Normal CL 105 LAB L501.6100 21.0-3 mmol/L Normal 2.0 CO2 24.0 LAB L501.6200 5-15 Normal GAP 8 Performed By: #### L100.0100, L500.2500 #### [facility] [address] [facility] [address] [place], [place], [address] BEDSIDE GLUCOSE Collected: 09/24/2018 Status: F Source: [place] 7:01 AM [facility] REPOSITORY TYPE CODE TESTS RESULT OUT OF REFERENCE UNITS RANGE LAB L501.080 70-110 mg/dL High BEDSIDE GLU 111 Result Comment: MANAGEMENT OF PATIENT CARE PER NURSING PROTOCOL Performed By: #### L501.080 #### [facility] Point of Care [address] [place] [address] BEDSIDE GLUCOSE Collected: 09/23/2018 Status: F Source: DOM 9:10 PM [facility] REPOSITORY TYPE CODE TESTS RESULT OUT OF REFERENCE UNITS RANGE LAB L501.080 70-110 mg/dL High BEDSIDE GLU 312 Result Comment: MANAGEMENT OF PATIENT CARE PER NURSING PROTOCOL Performed By: #### L501.080 #### [facility] Point of Care [address] [place] [address] BEDSIDE GLUCOSE Collected: 09/23/2018 Status: F Source: DOM 4:54 PM [facility] REPOSITORY TYPE CODE TESTS RESULT OUT OF REFERENCE UNITS RANGE LAB L501.080 70-110 mg/dL High BEDSIDE GLU 316 Result Comment: MANAGEMENT OF PATIENT CARE PER NURSING PROTOCOL Performed By: #### L501.080 #### [facility] Point of Care [address] [place] [address] BEDSIDE GLUCOSE Collected: 09/23/2018 Status: F Source: DOM 11:25 AM [facility] REPOSITORY TYPE CODE TESTS RESULT OUT OF REFERENCE UNITS RANGE LAB L501.080 70-110 mg/dL High BEDSIDE GLU 363 Result Comment: MANAGEMENT OF PATIENT CARE PER NURSING PROTOCOL Performed By: #### L501.080 #### [facility] Point of Care [address] [place] [address] BEDSIDE GLUCOSE Collected: 09/23/2018 Status: F Source: DOM 6:53 AM [facility] REPOSITORY TYPE CODE TESTS RESULT OUT OF REFERENCE UNITS RANGE LAB L501.080 70-110 mg/dL High BEDSIDE GLU 177 Result Comment: MANAGEMENT OF PATIENT CARE PER NURSING PROTOCOL Performed By: #### L501.080 #### [facility] Point of Care [address] [place] [address] CONSULTATION Observed: 09/23/2018 Status: F Source: DOM 5:33 AM [facility] REPOSITORY [facility] Medical Records Department [address] [place] [address] Consultation 09/22/18 0820 MR#: [id number] Acct: [id number] Name: MEGAN HOLLOWAY Rep #: [id number] : 1945 73 From: Aquiles Modi MD PCP: Jayme Harry MD Status: ADM IN Y Location: [place] [address] Problem List (1) Atrial fibrillation with RVR Status: Acute (2) Hypertensive urgency Status: Acute (3) Rhinovirus Status: Acute (4) Severe sepsis Status: Acute (5) Acute respiratory insufficiency Status: Acute (6) DM2 (diabetes mellitus, type 2) Status: Chronic (7) Hyperlipidemia Status: Chronic (8) Inflammatory bowel disease Status: Chronic (9) Benign essential HTN Status: Chronic Reason for Consult Date of Consultation: 09/22/18 Reason for Consultation: Acute respiratory insufficiency History of Present Illness: The patient is a 73 year old M, with past medical history listed below, who presented to [facility] on 09/17/2018 secondary to worsening of respiratory status despite Augmentin and oral prednisone therapy. Patient reportedly has a history of COPD that is treated by Dr. Lange as an outpatient. Patient reportedly had intensification of cough and shortness of breath despite aerosol machine at home, so he came to the ER for evaluation. In the emergency room, patient was noted to be hypertensive at 200/100, tachycardic at 110 bpm and 99% on 2 L. Patient was noted to have a very harsh cough and an elevated white blood cell count at 16 with a lactate of 6. Patient was admitted to the PCU with a diagnosis of A. fib with RVR. Since admission, patient reports subjective improvement in overall condition. Patient was found to have rhinovirus. Patient reports that over the last 24 hours he has had increased mobilization of secretions. Patient states he is responding to Pap therapy, but vest therapy significantly inflamed his chronic back issues. Patient has persisted and tachycardia with heart rates in the 140s-150s despite amiodarone and other rate control options by cardiology. Patient is a [id number] smoking history. Patient states he is typically seen by Dr. Lange as an outpatient, but states I think I may need another doctor. Patient states he has had pulmonary function test in the past, but is unaware of the results. Patient is no longer smoking. Patient is on Remicade therapy at baseline secondary to rheumatoid arthritis and colitis. Patient is unaware of ever being told of bronchiectasis. Patient denies any history of travel, exposure to asbestos or TB. Patient denies any chest pain at this time. Patient does have a CPAP for sleep apnea that he uses supplemental oxygen, but denies any history of supplemental oxygen at baseline while awake. Past Medical History Past Medical History (Chronic Problems): Chronic Problems DM2 (diabetes mellitus, type 2) (Chronic) Hyperlipidemia (Chronic) Inflammatory bowel disease (Chronic) Benign essential HTN (Chronic) Rheumatoid aortitis (Chronic) Allergies aspirin Allergy (Verified 09/17/18 20:04) Swelling morphine Adverse Reaction (Verified 09/17/18 20:04) UNABLE TO URINATE Home Medications: Ambulatory Orders Medication Instructions Recorded Amlodipine/Benazepril [Lotrel 1 capsule PO DAILY 07/20/13 10-40 MG Capsule] Gabapentin [Neurontin] 600 mg PO BID 07/20/13 Finasteride [Proscar] 5 mg PO DAILY 03/14/15 Surgical History: no surgical history, noncontributory, - - Fusion of the cervical spine, lumbar spine surgery, bilateral knee replacements, partial colon resection due to diverticulitis Psychiatric History: No pertinent psych hx Smoking Status: Former smoker - *Family History Maternal History Items: Heart Disease Paternal History Items: COPD, Heart Disease Review of Systems Comment: See HPI, otherwise negative x10 systems. Patient Problems: Active and Suspected Problems Atrial fibrillation with RVR (Acute) Rhinovirus (Acute) Severe sepsis (Acute) Objective: CT of the chest was personally reviewed. Patient does have calcified plaques throughout his aorta and coronary arteries. Patient does have scattered bronchiectasis noted with peribronchial cuffing. Echocardiogram shows an EF of 75% with no mention of diastolic dysfunction, mildly dilated RV, severely dilated left atrium and a right ventricular systolic pressure estimated at 40 mmHg. - Physical Exam General: Alert, Oriented x3, Cooperative, - - Mild conversational dyspnea. Paroxysmal type coughing noted. Obese. HEENT: Atraumatic, PERRLA, EOMI, Normocephalic, - - Slight scleral injection without icterus. Some nasal congestion appreciated. Oral: Moist Mucosa, No Gingival or Mucosal Lesions/ Ulcerations Neck: Supple, No JVD, No Nodes, Trachea Midline Lungs: No rales, Diminished, Rhonchi, Wheezes, - - Symmetric expansion. No dullness to percussion. Cardiovascular: Normal S1, Normal S2, No murmurs, Irregular Rate, No rub noted, No Gallop, Tachycardic, - - A. fib with RVR noted on telemetry Abdomen: Bowel Sounds Present, Soft, Non Tender, Non-Distended, Obese Extremities: No clubbing, No cyanosis, No edema, Capillary Refill Less than 3 Seconds Skin: No rashes, No breakdown Musculoskeletal: No Tenderness to Palpation of Joints or Extremities, No Muscle Wasting Lymphatic: No Cervical, Supraclavicular, or Inguinal Adenopathy Neurological: Cranial nerves II-XII grossly intact, Neuro grossly intact, Motor Exam 5/5 strength throughout Psych/Mental Status: Alert and oriented to time, place, person, mood and affect Vital Signs Temp Pulse Resp BP Pulse Ox 36.7 C 154 H 20 H 142/69 H 94 09/22/18 07:00 09/22/18 07:36 09/22/18 07:00 09/22/18 07:00 09/22/18 08:01 Oxygen Flow Rate (L/min) 4 Oxygen Delivery Method Nasal Cannula Weight: 95.5 kg Body Mass Index (BMI) 33.0 Finger Stick Blood Glucose 151 Intake and Output for Last 24 Hours Microbiology Past 72 Hours 09/17/18 20:00 Blood Culture - Preliminary Laboratory Tests Past 24 Hrs WBC RBC Hgb Hct MCV MCH MCHC RDW RDW Differential Plt Count MPV Immature Gran % (Auto) WBC RBC Hgb Hct MCV MCH POC Glucose POC Glucose 149 H 264 H 280 H POC Glucose 189 H 170 H Clinical Impression(s) from Imaging Studies Chest X-Ray 09/21/18 14:53 IMPRESSION: No acute thoracic pathology. Electronically Signed: Evin Baldwin, at 15:20 EST Tel , Service support , Chest CT 09/21/18 20:32 IMPRESSION: Coronary arterial calcifications are present. There are calcified plaques of the thoracic aorta. There are diffuse degenerative changes of the visualized thoracolumbar spine. There are posterior spinal fusion changes of the visualized lower cervical region. There are several nonobstructing calculi in the upper pole of the left kidney measuring up to 3 mm. There is a 2.0 cm low-attenuation nodule of the left adrenal most likely representing a benign adenoma. Electronically Signed: Remy Leary MD at 21:37 EST , Service support , Assessment/Plan All Active Problems Atrial fibrillation with RVR (Acute) Hypertensive urgency (Acute) Rhinovirus (Acute) Severe sepsis (Acute) Acute respiratory insufficiency (Acute) Chest tightness (Resolved) Left wrist pain (Resolved) Syncopal episodes (Resolved) Ureteral calculus, right (Resolved) RECOMMENDATIONS: 1. Continue bronchodilators and steroid therapy 2. Okay to discontinue vest therapy, continue PEP therapy 3. Initiate baseline nocturnal CPAP therapy 4. Wean oxygen as tolerated 5. Consider discontinuation of cough suppressants 6. Rate control per cardiology IMPRESSIONS: 1. Acute hypoxic respiratory insufficiency secondary to bronchiectasis exacerbation secondary to acute rhinovirus Patient failed outpatient therapy. Patient is currently off of antibiotics. Patient did receive IV Solu-Medrol for several days, but is currently on oral prednisone therapy. My personal review of the CT scan is more consistent with bronchiectasis, which may be secondary to uncontrolled asthma. Wean oxygen as tolerated. Patient will need a walking oximetry prior to discharge. Respiratory status is likely somewhat compromised secondary to A. fib with RVR. 2. A. fib with RVR/hypertensive urgency Cardiology is currently following. Patient is on multiple rate control medications at this time. Patient is currently on an amiodarone drip, but has significant dilation of the left atrium, so it is unclear if he will achieve sinus rhythm. Given patient's acute exacerbation of bronchiectasis/asthma, it is unclear if he would tolerate a CLEMENTINA for evaluation and cardioversion. Patient would likely be best served with anticoagulation and outpatient cardioversion. 3. Type 2 diabetes mellitus/hyperlipidemia/rheumatoid arthritis/depression/BPH/GERD/advanced age Complicates care, management, recovery and prognosis. Okay to continue with baseline medications. May consider holding Remicade for short period of time to allow for resolution of acute viral issues. Code Visit Inpatient E AND M: [id number] Init Hosp L3 09/23/18 0533 <Electronically signed by Aquiles Modi MD> Date Aquiles Modi MD Cosigner Signature (if applicable): Date CC: Aquiles Modi MD; Chuy Manjarrez MD; Kimmie Nur MD; Jayme Harry MD Signed CBC W/DIFF, AUTOMATED Collected: 09/23/2018 Status: F Source: DOM 5:23 AM [facility] REPOSITORY TYPE CODE TESTS RESULT OUT OF RANGE REFERENCE UNITS LAB L100.1000 4.4-11.0 K/mm3 High WBC 18.1 LAB L100.1200 4.6-6.2 M/mm3 Low RBC 4.41 LAB L100.1300 13.0-16.5 g/dl Normal HGB 13.0 LAB L100.1400 40-54 % Low HCT 39.5 LAB L100.1500 80-94 fL Normal MCV 89.6 LAB L100.1600 27.0-32.0 pg Normal MCH 29.5 LAB L100.1700 32-36 g/gl Normal MCHC 32.9 LAB L100.1810 11.6-14.6 % High RDW CV 15.5 LAB L100.1820 35.1-43.9 fl High RDW SD 50.4 LAB L100.1900 150-450 K/mm3 Normal PLT 218 LAB L100.2000 6.2-12.0 fl Normal MPV 11.4 LAB L100.2100 47-70 % High NEUT% 86.1 LAB L100.2200 19-41 % Low LY% 7.5 LAB L100.2300 0-10 % Normal MONO% 6.0 LAB L100.2400 0-5 % Normal EO% 0.1 LAB L100.2500 0-1 % Normal BASO% 0.1 LAB L100.2550 0.0-0.9 % Normal IM GRAN % 0.200 Result Comment: IG% - Immature Granulocytes (promyelocytes, myelocytes and metamyelocytes) > 1% indicates that a LEFT SHIFT is Present. LAB L100.2620 2.0-7.7 X10 3/uL High Absolute Neut 15.6 LAB L100.2720 0.83-4.51 X10 3/ul Normal Absolute Lymph 1.36 Performed By: #### L100.0100 #### [facility] [address] [place], [address] BASIC METABOLIC Collected: 09/23/2018 Status: F Source: LIVONIA PROFILE (BMP) 5:23 AM [facility] REPOSITORY TYPE CODE TESTS RESULT OUT OF RANGE REFERENCE UNITS LAB L501.0100 74-106 mg/dL High GLU 189 Result Comment: Fasting Glucose result greater than or equal to 126 mg/dL suggests DIABETES MELLITUS per A.D.A. criteria. Please note revised GLUCOSE reference range effective 2017. LAB L501.1000 7-18 mg/dL High BUN 35 LAB L501.1100 0.70-1.30 mg/dL High CREAT,SERUM 1.53 Result Comment: The validity of the calculated GFR AND GFRAA in patients over 70 years has not been determined. Clinical correlation is essential. LAB L501.1110 >60 mL/min Low EST GFR 48 Result Comment: Non- GFR Calc LAB L501.1115 >60 mL/min Low EST GFR - AA 58 Result Comment: GFR Calc LAB L501.1255 ml/min Normal Estimated CRCL 39.60 LAB L501.1300 10-20 RATIO High BUN/CRE 22.9 LAB L501.2200 8.5-10 mg/dL Normal .1 CA 8.9 LAB L501.5300 136-14 mmol/L Normal 5 NA 141 LAB L501.5600 3.5-5. mmol/L Normal 1 K 3.5 LAB L501.5900 98-107 mmol/L Normal CL 103 LAB L501.6100 21.0-3 mmol/L Normal 2.0 CO2 28.0 LAB L501.6200 5-15 Normal GAP 10 Performed By: #### L500.2500 #### [facility] [address], [address] BEDSIDE GLUCOSE Collected: 09/22/2018 Status: F Source: LIVONIA 4:31 PM [facility] REPOSITORY TYPE CODE TESTS RESULT OUT OF REFERENCE UNITS RANGE LAB L501.080 70-110 mg/dL High BEDSIDE GLU 256 Result Comment: MANAGEMENT OF PATIENT CARE PER NURSING PROTOCOL Performed By: #### L501.080 #### [facility] Point of Care [address] [place], [place] [id number] BEDSIDE GLUCOSE Collected: 09/22/2018 Status: F Source: DOM 11:12 AM [facility] REPOSITORY TYPE CODE TESTS RESULT OUT OF REFERENCE UNITS RANGE LAB L501.080 70-110 mg/dL High BEDSIDE GLU 203 Result Comment: MANAGEMENT OF PATIENT CARE PER NURSING PROTOCOL Performed By: #### L501.080 #### [facility] Point of Care [address] [place], [place] [id number] BEDSIDE GLUCOSE Collected: 09/22/2018 Status: F Source: DOM 6:50 AM [facility] REPOSITORY TYPE CODE TESTS RESULT OUT OF REFERENCE UNITS RANGE LAB L501.080 70-110 mg/dL High BEDSIDE GLU 149 Result Comment: MANAGEMENT OF PATIENT CARE PER NURSING PROTOCOL Performed By: #### L501.080 #### [facility] Point [facility] Care [address] [place], [place] [id number] CBC W/DIFF, AUTOMATED Collected: 09/22/2018 Status: F Source: DOM 5:44 AM [facility] REPOSITORY TYPE CODE TESTS RESULT OUT OF RANGE REFERENCE UNITS LAB L100.1000 4.4-11.0 K/mm3 High WBC 21.5 LAB L100.1200 4.6-6.2 M/mm3 Normal RBC 5.07 LAB L100.1300 13.0-16.5 g/dl Normal HGB 15.3 LAB L100.1400 40-54 % Normal HCT 44.7 LAB L100.1500 80-94 fL Normal MCV 88.2 LAB L100.1600 27.0-32.0 pg Normal MCH 30.2 LAB L100.1700 32-36 g/gl Normal MCHC 34.2 LAB L100.1810 11.6-14.6 % High RDW CV 15.6 LAB L100.1820 35.1-43.9 fl High RDW SD 50.4 LAB L100.1900 150-450 K/mm3 Normal PLT 285 LAB L100.2000 6.2-12.0 fl Normal MPV 11.2 LAB L100.2100 47-70 % High NEUT% 78.3 LAB L100.2200 19-41 % Low LY% 13.5 LAB L100.2300 0-10 % Normal MONO% 7.7 LAB L100.2400 0-5 % Normal EO% 0.0 LAB L100.2500 0-1 % Normal BASO% 0.0 LAB L100.2550 0.0-0.9 % Normal IM GRAN % 0.500 Result Comment: IG% - Immature Granulocytes (promyelocytes, myelocytes and metamyelocytes) > 1% indicates that a LEFT SHIFT is Present. LAB L100.2620 2.0-7.7 X10 3/uL High Absolute Neut 16.8 LAB L100.2720 0.83-4.51 X10 3/ul Normal Absolute Lymph 2.90 Performed By: #### L100.0100 #### [facility] [address] [place], [address] BASIC METABOLIC Collected: 09/22/2018 Status: F Source: LIVONIA PROFILE (BMP) 5:44 AM [facility] REPOSITORY TYPE CODE TESTS RESULT OUT OF RANGE REFERENCE UNITS LAB L501.0100 74-106 mg/dL High GLU 137 Result Comment: Fasting Glucose result greater than or equal to 126 mg/dL suggests DIABETES MELLITUS per A.D.A. criteria. Please note revised GLUCOSE reference range effective 2017. LAB L501.1000 7-18 mg/dL High BUN 26 LAB L501.1100 0.70-1.30 mg/dL High CREAT,SERUM 1.51 Result Comment: The validity of the calculated GFR AND GFRAA in patients over 70 years has not been determined. Clinical correlation is essential. LAB L501.1110 >60 mL/min Low EST GFR 48 Result Comment: Non- GFR Calc LAB L501.1115 >60 mL/min Low EST GFR - AA 58 Result Comment: GFR Calc LAB L501.1255 ml/min Normal Estimated CRCL 40.13 LAB L501.1300 10-20 RATIO Normal BUN/CRE 17.2 LAB L501.2200 8.5-10 mg/dL Normal .1 CA 8.9 LAB L501.5300 136-14 mmol/L Normal 5 NA 141 LAB L501.5600 3.5-5. mmol/L Low 1 K 3.4 LAB L501.5900 98-107 mmol/L Normal CL 105 LAB L501.6100 21.0-3 mmol/L Normal 2.0 CO2 24.0 LAB L501.6200 5-15 Normal GAP 12 Performed By: #### L500.2500, L501.5200 #### [facility] [address] [facility] [address] MAGNESIUM Collected: 09/22/2018 Status: F Source: DOM 5:44 AM [facility] REPOSITORY TYPE CODE TESTS RESULT OUT OF RANGE REFERENCE UNITS LAB L501.5200 1.6-2.6 mg/dL Normal MG 2.0 Performed By: #### L500.2500, L501.5200 #### [facility] [id number] BNP,B-TYPE NATRIURETIC Collected: 09/22/2018 Status: F Source: DOM PEPTIDE 5:44 AM [facility] REPOSITORY TYPE CODE TESTS RESULT OUT OF RANGE REFERENCE UNITS LAB L503.6620 0-100 pg/mL High B-TYPE 200.4 CORRINA PEP Performed By: #### L503.6620 #### [facility] [id number] T4 FREE DIRECT Collected: 09/22/2018 Status: F Source: DOM 5:44 AM [facility] REPOSITORY TYPE CODE TESTS RESULT OUT OF RANGE REFERENCE UNITS LAB L506.0400 0.76-1.46 ng/dL Normal T4 FREE 0.88 DIRECT Performed By: #### L506.0400 #### [facility] [address] [place], [place], [id number] BLOOD GASES BY [facility] Collected: 09/22/2018 Status: F Source: DOM 4:00 AM [facility] REPOSITORY TYPE CODE TESTS RESULT OUT OF RANGE REFERENCE UNITS LAB L9000.9990 Normal BLD GAS TYPE ART LAB L9001.1000 Normal SITE L Radial LAB L9001.1010 Normal AWA TEST POS LAB L9001.1050 O2 Normal Delivery Dev Nasal Can LAB L9001.1055 /min Normal LPM 4.0 LAB L9001.1104 Normal Results To HOSP MD LAB L9001.1105 Normal Time Given 400 LAB L9001.1110 7.35-7.45 pH Normal - I-STAT 7.41 LAB L9001.1210 35-45 mmHg Normal pCO2 - ISTAT 41.2 LAB L9001.1310 75-100 mmHG Normal PO2 I-STAT 82 LAB L9001.2300 22-26 mmol/L High HCO3 ISTAT 26.2 LAB L9001.2400 -2 to +2 mmol/L BE Normal ISTAT 2 LAB L9001.2415 mmol/L Normal TOTAL CO2 27 ISTAT LAB L9001.2425 95-99 % Normal SO2 ISTAT 96 Performed By: #### L9000.0800 #### [facility] Point of Care [address] [place] [address] BEDSIDE GLUCOSE Collected: 09/21/2018 Status: F Source: LIVONIA 9:24 PM [facility] REPOSITORY TYPE CODE TESTS RESULT OUT OF REFERENCE UNITS RANGE LAB L501.080 70-110 mg/dL High BEDSIDE GLU 264 Result Comment: MANAGEMENT OF PATIENT CARE PER NURSING PROTOCOL Performed By: #### L501.080 #### [facility] Point of Care [address] [place] [address] CHEST WITH CONTRAST Observed: 09/21/2018 Status: F Source: LIVONIA 8:35 PM [facility] REPOSITORY [facility] Imaging Services [address] [place] [address] Chest WITH Contrast MR#: [id number] Acct: [id number] Name: MEGAN HOLLOWAY Rep #: [id number] : 1945 M 73 From: Remy Leary MD PCP: Jayme Harry MD Status: ADM IN Study: Chest WITH Contrast Date of Exam: 09/21/18 Exam# [id number] Ordering Dr: Kimmie Nur MD STUDY: CT CHEST WITH CONTRAST REASON FOR EXAM: Male, 73 years old. Increased shortness of breath, wheezing, fever RADIATION DOSAGE (If Supplied By Facility): CTDIvol = ( 17.51 ) mGy, DLP = ( 715.92 ) mGycm TECHNIQUE: Transaxial imaging was performed following intravenous administration of 100ML ml of Isovue 300 contrast material. Individualized dose optimization techniques were used for this CT. COMPARISON: None. FINDINGS: The lungs are normal. There is an accessory azygos fissure of the right upper lobe, representing an anatomic variant. There is no demonstrated pleural abnormality. The heart size is within normal limits. There is no pericardial effusion. Coronary arterial calcific lesions are present. Normal mediastinum. Normal hilar regions. Normal enhanced pulmonary arteries. There are calcified plaques of the thoracic aorta. There are diffuse degenerative changes of the visualized thoracolumbar spine. There are posterior spinal fusion changes of the visualized lower cervical region. There are several nonobstructing calculi in the upper pole of the left kidney measuring up to 3 mm. There is a 2.0 cm low-attenuation nodule of the left adrenal most likely representing a benign adenoma. CT/Chest WITH Contrast IMPRESSION: Coronary arterial calcifications are present. There are calcified plaques of the thoracic aorta. There are diffuse degenerative changes of the visualized thoracolumbar spine. There are posterior spinal fusion changes of the visualized lower cervical region. There are several nonobstructing calculi in the upper pole of the left kidney measuring up to 3 mm. There is a 2.0 cm low-attenuation nodule of the left adrenal most likely representing a benign adenoma. Electronically Signed: Remy Leary MD at 21:37 EST , Service support , CC: Kimmie Nur MD; Jayme Harry MD Multiple Cut Off Saw Operator: Signed BEDSIDE GLUCOSE Collected: 09/21/2018 Status: F Source: DOM 4:58 PM [facility] REPOSITORY TYPE CODE TESTS RESULT OUT OF REFERENCE UNITS RANGE LAB L501.080 70-110 mg/dL High BEDSIDE GLU 280 Result Comment: Insulin Given MANAGEMENT OF PATIENT CARE PER NURSING PROTOCOL Performed By: #### L501.080 #### [facility] Point [facility] Care [address] [place] [address] CHEST 1 VIEW Observed: 09/21/2018 Status: F Source: DOM (PORTABLE) 2:22 PM [facility] REPOSITORY [facility] Imaging Services [address] [place] [address] Chest 1 View (Portable) MR#: [id number] Acct: [id number] Name: MEGAN HOLLOWAY Rep #: [id number] : 1945 M 73 From: Evin Baldwin MD PCP: Jayme Harry MD Status: ADM IN Study: Chest 1 View (Portable) Date of Exam: 09/21/18 Exam# [id number] Ordering Dr: Margie Hu STUDY: X-RAY CHEST REASON FOR EXAM: Male, 73 years old. Cough TECHNIQUE: Frontal view of the chest COMPARISON: 09/17/2018 FINDINGS: The lungs are clear. There are no pleural effusions. There is no pneumothorax. The heart is normal in size. Again noted is fusion hardware in the cervical spine. RAD/Chest 1 View (Portable) IMPRESSION: No acute thoracic pathology. Electronically Signed: Evin Baldwin, at 15:20 EST Tel , Service support , CC: TERESE uH; Jayme Harry MD Multiple Cut Off Saw Operator: Signed TROPONIN-I Collected: 09/21/2018 Status: F Source: LIVONIA 1:58 PM [facility] REPOSITORY Order Comment: 'TROP' Serial specimen #1, #2 or #3: 3 TYPE CODE TESTS RESULT OUT OF RANGE REFERENCE UNITS LAB L501.4010 <0.045 ng/mL Normal < 0.015 TROPONIN-I Result Comment: TROPONIN-I EXPECTED VALUES <0.045 Negative 0.045 - 0.590 Consistent with Cardiac Damage > OR = 0.600 Critical Value Not every elevated troponin is indicative of UT. These values should be used with clinical judgement in examining the patient's clinical picture for diagnosis. To establish a diagnosis of UT versus myocardial injury, there must be a demonstrated rise and/or fall in the troponin values, in addition to ischemic symptoms, EKG changes, new regional wall motion abnormality, and/or angiographical evidence. PLEASE NOTE: REFERENCE RANGES EDITED 18 Performed By: #### L501.4010 #### [facility] [address] [place], [address] BEDSIDE GLUCOSE Collected: 09/21/2018 Status: F Source: LIVONIA 12:02 PM [facility] REPOSITORY TYPE CODE TESTS RESULT OUT OF REFERENCE UNITS RANGE LAB L501.080 70-110 mg/dL High BEDSIDE GLU 189 Result Comment: MANAGEMENT OF PATIENT CARE PER NURSING PROTOCOL Performed By: #### L501.080 #### [facility] Point of Care [address] [facility] [place] [address] TROPONIN-I Collected: 09/21/2018 Status: F Source: LIVONIA 11:15 AM [facility] REPOSITORY Order Comment: 'TROP' Serial specimen #1, #2 or #3: 2 TYPE CODE TESTS RESULT OUT OF RANGE REFERENCE UNITS LAB L501.4010 <0.045 ng/mL Normal 0.020 TROPONIN-I Result Comment: TROPONIN-I EXPECTED VALUES <0.045 Negative 0.045 - 0.590 Consistent with Cardiac Damage > OR = 0.600 Critical Value Not every elevated troponin is indicative of UT. These values should be used with clinical judgement in examining the patient's clinical picture for diagnosis. To establish a diagnosis of UT versus myocardial injury, there must be a demonstrated rise and/or fall in the troponin values, in addition to ischemic symptoms, EKG changes, new regional wall motion abnormality, and/or angiographical evidence. PLEASE NOTE: REFERENCE RANGES EDITED 18 Performed By: #### L501.4010 #### [facility] [address] [place], [address] CONSULTATION Observed: 09/21/2018 Status: F Source: LIVONIA 7:54 AM [facility] REPOSITORY [facility] Medical Records Department [address] [place] [address] Consultation 09/20/18 1436 MR#: [id number] Acct: [id number] Name: MEGAN HOLLOWAY Rep #: [id number] : 1945 73 From: Chuy Manjarrez MD PCP: Jayme Harry MD Status: ADM IN Y Location: [address] Problem List (1) Atrial fibrillation with RVR Status: Acute (2) Hyperlipidemia Status: Chronic (3) Benign essential HTN Status: Chronic Reason for Consult Date of Consultation: 09/20/18 Reason for Consultation: Atrial fibrillation, hypertension, History of Present Illness: The patient is a 73 year old M, with a history of asthma, diabetes, hypertension, formally saw Dr. Lino many years ago, no known coronary artery disease or history of atrial fibrillation. Patient was admitted with wheezing, shortness of breath, fevers, chills and productive cough. His symptoms first started about 2-3 weeks ago after visiting relatives in [place] who also apparently had an upper respiratory tract infection. Patient has had struggles with shortness of breath, wheezing, and was prescribed Augmentin and prednisone by his PCP. When this did not improve, he sought medical attention at [facility] ER on 09/18/18. Chest x-ray in the emergency room showed no overt infiltrates. Head and neck CTA after that demonstrated bronchial mucus, as well as possible sinusitis. His initial EKG showed normal sinus rhythm with possible old anterior wall myocardial infarction and old inferior wall myocardial infarction. Patient's rhythm devolved into atrial fibrillation with rapid ventricular response earlier today. Currently the patient is laying down flat, has audible expiratory wheezing, and audible rhonchi. Preliminary echocardiogram shows intact LV function, left atrial enlargement. Final results pending. On further history the patient is never had a catheterization, and cannot recall the last time he had a stress test. Prior to his illness, he denies any exertional chest pain, angina, shortness of breath or dyspnea on exertion. [] Past Medical History Allergies/Adverse Reactions: Allergies aspirin Allergy (Verified 09/17/18 20:04) Swelling morphine Adverse Reaction (Verified 09/17/18 20:04) UNABLE TO URINATE Home Medications: Ambulatory Orders Medication Instructions Recorded Amlodipine/Benazepril [Lotrel 1 capsule PO DAILY 07/20/13 10-40 MG Capsule] Gabapentin [Neurontin] 600 mg PO BID 07/20/13 Finasteride [Proscar] 5 mg PO DAILY 03/14/15 Past Medical History (Chronic Problems): Chronic Problems DM2 (diabetes mellitus, type 2) (Chronic) Hyperlipidemia (Chronic) Inflammatory bowel disease (Chronic) Benign essential HTN (Chronic) Rheumatoid aortitis (Chronic) Surgical History: no surgical history, noncontributory, - - Fusion of the cervical spine, lumbar spine surgery, bilateral knee replacements, partial colon resection due to diverticulitis Psychiatric History: No pertinent psych hx - *Family History Maternal History Items: Heart Disease Paternal History Items: COPD, Heart Disease Smoking Status: Former smoker Review of Systems - Review of Systems General: Reports: Fever, Chills. Denies: Fatigue, Night Sweats Cardiovascular: Reports: Shortness of Breath at Rest. Denies: Chest Discomfort, Shortness of Breath, Orthopnea, PND, Peripheral Edema, Palpitations, Lightheadedness, Dizziness, Near Syncope, Syncope Respiratory: Reports: Cough, Sputum Production, Shortness of Breath, Wheezing. Denies: Hemoptysis Gastrointestinal: Denies: Hematemesis, Hematochezia, Melena Genitourinary: Denies: Dysuria, Hematuria Skin: Denies: Rash Subjectve: Patient laying on his sides, no acute distress, obtaining echo at this time, positive productive cough, faint audible late expiratory wheezing. Objective: Vital Signs Temp Pulse Resp BP Pulse Ox 97.5 F L 137 H 20 H 138/94 H 92 09/20/18 09:41 09/20/18 11:25 09/20/18 11:00 09/20/18 09:45 09/20/18 11:00 Oxygen Flow Rate (L/min) 2 Oxygen Delivery Method Room Air Weight: 210 lb 8.663 oz Body Mass Index (BMI) 33.0 Finger Stick Blood Glucose 151 Intake and Output for Last 24 Hours Intake Total 2920 / 2920 1090 / 1090 940 / 940 Output Total 900 / 900 300 / 300 Balance 2019 1090 / 1090 640 / 640 General: Awake, Alert, Oriented x 3 HEENT: PERRL, EOMI, Sclera Non Icteric Neck: Supple, Good ROM, No Lymph Node Enlargement Lungs: Rales - Aleksander Bases, Expiratory Wheezes-Aleksander Cardiovascular: Irregular Rhythm, Normal S1, Normal S2, No Murmurs, No Rubs, No Gallops Vascular: No Carotid Bruits, Normal Femoral Pulses, Normal Radial Pulses, Normal Dorsalis Pedal Pulse, Normal Posterior Tibial Pulses Abdomen: Bowel Sounds Present, Soft, Non Tender, No HSM, No Organomegaly Extremities: No Cyanosis, No Clubbing, No edema Neurological: No Focal Motor or Sensory Deficit 09/19/18 05:09: Magnesium 1.6 Rhythm: EKG: Atrial fibrillation with rapid ventricular response, possible old anterior wall myocardial infarction and old inferior wall myocardial infarction. ECHO: Pending Stress Test: Cardiac Cath: PCI: CT Surgery: Holter monitor: EPS: PPM: CXR: Chest CT Scan: Assessment/Plan 1. Atrial fibrillation: Patient presents with what appears to be bronchitis possibly viral in origin, with productive cough, sputum, superimposed upon asthma had a baseline. Patient has an elevated white blood cell count, and is being treated with antibiotics and prednisone therapy. Patient developed atrial fibrillation from sinus rhythm on this admission, with rapid ventricular response. Recommended patient be ruled out for myocardial infarction with troponin series x3, avoid beta-andrey therapy given his asthma and respiratory situation, and initiate Cardizem CD 120 mill grams p.o. daily and titrate up from there. His echocardiogram preliminarily shows normal LV function with dilated left atrium. Final results are pending. Assuming his troponins are negative x3 would recommend he undergo a debridement echocardiogram on Saturday morning to evaluate for possible source of ischemia. If his troponins are abnormal, I would recommend skipping his stress test and proceeding with left heart catheterization once his pulmonary situation has improved. In addition I recommend Lovenox 1 mg/kg subcu twice daily until and if the patient converts on his own. Would not recommend amiodarone at this time unless we are unable to control the patient's heart rate. The patient's heart rate may be elevated due to his acute illness. If the patient does not spontaneously convert to normal sinus rhythm, he will require Eliquis therapy for period of 3 weeks followed by elective DC cardioversion. TSH is somewhat on the low side. 2. Hyperlipidemia: Recommend obtaining a fasting lipid profile. 3. Asthma: Patient has baseline asthma, which is not responding to prednisone p.o. or antibiotic therapy. Would consider recommending pulmonology consultation for management of his bronchitis acutely and asthma chronically going forward. 4. Thank you very much for the opportunity to participate in the cardiac care of your patient. Consultation time took place between 215 and 2:48 PM. Code Visit Inpatient SELMA: [id number] Init Hosp L2 09/21/18 0754 <Electronically signed by Chuy Manjarrez MD> Date Chuy Manjarrez MD Cosigner Signature (if applicable): Date CC: Chuy Manjarrez MD; Kimmie Nur MD; Jayme Harry MD Signed BEDSIDE GLUCOSE Collected: 09/21/2018 Status: F Source: LIVONIA 6:51 AM [facility] [place] REPOSITORY TYPE CODE TESTS RESULT OUT OF REFERENCE UNITS RANGE LAB L501.080 70-110 mg/dL High BEDSIDE GLU 170 Result Comment: MANAGEMENT OF PATIENT CARE PER NURSING PROTOCOL Performed By: #### L501.080 #### [facility] [place] [address] CBC W/DIFF, AUTOMATED Collected: 09/21/2018 Status: F Source: L[place] 5:19 AM [facility] REPOSITORY TYPE CODE TESTS RESULT OUT OF RANGE REFERENCE UNITS LAB L100.1000 4.4-11.0 K/mm3 High WBC 13.0 LAB L100.1200 4.6-6.2 M/mm3 Normal RBC 4.70 LAB L100.1300 13.0-16.5 g/dl Normal HGB 13.7 LAB L100.1400 40-54 % Normal HCT 42.2 LAB L100.1500 80-94 fL Normal MCV 89.8 LAB L100.1600 27.0-32.0 pg Normal MCH 29.1 LAB L100.1700 32-36 g/gl Normal MCHC 32.5 LAB L100.1810 11.6-14.6 % High RDW CV 15.4 LAB L100.1820 35.1-43.9 fl High RDW SD 50.0 LAB L100.1900 150-450 K/mm3 Normal PLT 246 LAB L100.2000 6.2-12.0 fl Normal MPV 11.5 LAB L100.2100 47-70 % Normal NEUT% 67.2 LAB L100.2200 19-41 % Normal LY% 25.1 LAB L100.2300 0-10 % Normal MONO% 7.2 LAB L100.2400 0-5 % Normal EO% 0.2 LAB L100.2500 0-1 % Normal BASO% 0.1 LAB L100.2550 0.0-0.9 % Normal IM GRAN % 0.200 Result Comment: IG% - Immature Granulocytes (promyelocytes, myelocytes and metamyelocytes) > 1% indicates that a LEFT SHIFT is Present. LAB L100.2620 2.0-7.7 X10 3/uL High Absolute Neut 8.7 LAB L100.2720 0.83-4.51 X10 3/ul Normal Absolute Lymph 3.26 Performed By: #### L100.0100 #### [facility] [address] [place], [address] BASIC METABOLIC Collected: 09/21/2018 Status: F Source: [place] PROFILE [place] [place] 5:19 AM [facility] REPOSITORY TYPE CODE TESTS RESULT OUT OF RANGE REFERENCE UNITS LAB L501.0100 74-106 mg/dL High GLU 164 Result Comment: Fasting Glucose result greater than or equal to 126 mg/dL suggests DIABETES MELLITUS per A.D.A. criteria. Please note revised GLUCOSE reference range effective 2017. LAB L501.1000 7-18 mg/dL High BUN 31 LAB L501.1100 0.70-1.30 mg/dL High CREAT,SERUM 1.33 Result Comment: The validity of the calculated GFR AND GFRAA in patients over 70 years has not been determined. Clinical correlation is essential. LAB L501.1110 >60 mL/min Low EST GFR 56 Result Comment: Non- GFR Calc LAB L501.1115 >60 mL/min Normal EST GFR - AA 68 Result Comment: GFR Calc LAB L501.1255 ml/min Normal Estimated CRCL 45.56 LAB L501.1300 10-20 RATIO High BUN/CRE 23.3 LAB L501.2200 8.5-10 mg/dL Normal .1 CA 8.6 LAB L501.5300 136-14 mmol/L Normal 5 NA 139 LAB L501.5600 3.5-5. mmol/L Low 1 K 3.0 LAB L501.5900 98-107 mmol/L Normal CL 104 LAB L501.6100 21.0-3 mmol/L Normal 2.0 CO2 26.0 LAB L501.6200 5-15 Normal GAP 9 Performed By: #### L500.2500 #### [facility] [address] [facility] [place], [place], [address] TROPONIN-I Collected: 09/21/2018 Status: F Source: [place] 5:19 AM [facility] REPOSITORY Order Comment: 'TROP' Serial specimen #1, #2 or #3: 1 TYPE CODE TESTS RESULT OUT OF RANGE REFERENCE UNITS LAB L501.4010 <0.045 ng/mL Normal 0.016 TROPONIN-I Result Comment: TROPONIN-I EXPECTED VALUES <0.045 Negative 0.045 - 0.590 Consistent with Cardiac Damage > OR = 0.600 Critical Value Not every elevated troponin is indicative of UT. These values should be used with clinical judgement in examining the patient's clinical picture for diagnosis. To establish a diagnosis of UT versus myocardial injury, there must be a demonstrated rise and/or fall in the troponin values, in addition to ischemic symptoms, EKG changes, new regional wall motion abnormality, and/or angiographical evidence. PLEASE NOTE: REFERENCE RANGES EDITED 18 Performed By: #### L501.4010 #### [facility] [address] [facility] [address] [place], [place], [address] FREE T3 Collected: 09/21/2018 Status: F Source: [place] 5:19 AM [facility] REPOSITORY Order Comment: Comments: add to this morning labs if possible TYPE CODE TESTS RESULT OUT OF RANGE REFERENCE UNITS LAB L501.42956 2.18-3.98 pg/mL Normal FREE T3 2.4 Performed By: #### L501.68408, L506.0400 #### [facility] [address] [facility] [place], [address] T4 FREE DIRECT Collected: 09/21/2018 Status: F Source: DOM 5:19 AM [facility] REPOSITORY Order Comment: Comments: add to this morning labs if possible TYPE CODE TESTS RESULT OUT OF RANGE REFERENCE UNITS LAB L506.0400 0.76-1.46 ng/dL Normal T4 FREE 0.96 DIRECT Performed By: #### L501.14741, L506.0400 #### [facility] [address] [place], [address] BEDSIDE GLUCOSE Collected: 09/20/2018 Status: F Source: DOM 9:55 PM [facility] REPOSITORY TYPE CODE TESTS RESULT OUT OF REFERENCE UNITS RANGE LAB L501.080 70-110 mg/dL High BEDSIDE GLU 200 Result Comment: MANAGEMENT OF PATIENT CARE PER NURSING PROTOCOL Performed By: #### L501.080 #### [facility] Point of Care [address] [place] [address] BEDSIDE GLUCOSE Collected: 09/20/2018 Status: F Source: DOM 4:46 PM [facility] REPOSITORY TYPE CODE TESTS RESULT OUT OF REFERENCE UNITS RANGE LAB L501.080 70-110 mg/dL High BEDSIDE GLU 175 Result Comment: MANAGEMENT OF PATIENT CARE PER NURSING PROTOCOL Performed By: #### L501.080 #### [facility] Point of Care [address] [place] [address] ECHOCARDIOGRAM COMPLETE Observed: 09/20/2018 Status: F Source: DOM 3:24 PM [facility] REPOSITORY [facility] Cardi[facility] Services [address] [address] Echo Complete 09/20/18 1418 MR#: [id number] Acct: [id number] Name: MEGAN HOLLOWAY Rep #: [id number] : 1945 73 From: Chuy Manjarrez MD Attending Dr: Rico Tilley DO Status: ADM IN Ordering Dr: Margie Hu Date: 09/20/18 Location: U Sex: M C Admitted: 09/17/18 Reason For Study: AFIB Procedure This was a 2D Doppler, Color Flow transthoracic echocardiogram. Exam performed portable in patient room. Left Ventricle Moderate concentric left ventricular hypertrophy. The estimated ejection fraction is 75 %. Unable to assess diastolic dysfunction due to arrhythmia. No regional wall motion abnormalities noted. Right Ventricle Mildly dilated right ventricle. Normal systolic function. Atria The left atrium is severely enlarged. The right atrium is mildly enlarged. Normal atrial septum. Mitral Valve Mild diffuse mitral valve thickening. Mild mitral annular calcification extending into the posterior leaflet. Trivial mitral valve insufficiency. Tricuspid Valve Normal tricuspid valve. Trivial tricuspid valve insufficiency. Right ventricular systolic pressure estimated to be 40 mmHg. Mild pulmonary hypertension. Aortic Valve Trisinus/trileaflet aortic valve. Mild diffuse aortic valve thickening. There is no aortic stenosis. Pulmonic Valve Normal pulmonic valve. Great Vessels Normal aortic root. Normal arch. Normal inferior vena cava. Inferior vena cava collapse with sniff. Pericardium/Pleural No pericardial effusion. MMode/2D Measurements AND Calculations LVIDd: 4.5 cm IVSd: 1.7 cm LVOT diam: 2.0 cm LVIDs: 3.2 cm LVPWd: 1.6 cm LVOT area: 3.1 cm2 RVDd: 3.9 cm FS: 30.3 % Ao root diam: 3.6 cm LA dimension(2D): 4.9 cm Doppler Measurements AND Calculations Ao V2 max: 115.5 cm/sec LV V1 max: 116.1 cm/sec PA V2 max: 122.6 cm/sec Ao max P.7 mmHg LV V1 max P.4 mmHg LU(V,D): 3.1 cm2 PI end-d debra: 175.6 cm/sec TR max edbra: 250.3 cm/sec TR max P.1 mmHg Interpretation Summary The estimated ejection fraction is 75 %. Unable to assess diastolic dysfunction due to arrhythmia. The right atrium is mildly enlarged. The left atrium is severely enlarged. Trivial mitral valve insufficiency. Trivial tricuspid valve insufficiency. Right ventricular systolic pressure estimated to be 40 mmHg. Mild pulmonary hypertension. Compared to echo rerport dated 11/05/2016, LV function has remained the same, but pt now appears to be in atrial fibrillation. Ordering Physician: TERESE Basurto Referring Physician: JAYME HARRY Performed By: Karen Pierre, JOE, RVT 09/20/18 1524 Date Chuy Manjarrez MD CC: TERESE Hu; Rico Tilley DO; Kimmie Nur MD; Jayme Harry MD Date Dictated: 09/20/18 1418 Date Transcribed: 09/20/18 1524 Multiple Cut Off Saw Operator: Signed LIPID PROFILE Collected: 09/20/2018 Status: F Source: DOM 3:16 PM [facility] [place] REPOSITORY Order Comment: 'TROP' Serial specimen #1, #2 or #3: 1 TYPE CODE TESTS RESULT OUT OF RANGE REFERENCE UNITS LAB L501.4900 200 mg/dL Normal CHOL 177 Result Comment: <200 mg/dL Desirable 200-240 mg/dL Borderline >240 mg/dL High Risk LAB L501.5000 mg/dL High TRIG 210 Result Comment: The drugs N-Acetylcysteine and Metamizole may falsely depress this assay. Serum Triglycerides Reference Interval Normal <150 mg/dL Borderline high 150 - 199 mg/dL High 200 - 499 mg/dL Very High > or = 500 mg/dL LAB L501.6400 mg/dL Normal HDL 44 Result Comment: The drugs N-Acetylcysteine and Metamizole may falsely depress this assay. Reference Range HDL <40 mg/dL Low HDL Cholesterol HDL >or= 60 mg/dL High HDL Cholesterol LAB L501.6500 0-130 mg/dL Normal LDL 91 LAB L501.6600 5-40 mg/dL High VLDL 42 Performed By: #### L500.4100, L501.4010 #### [facility] [address] [place], [address] TROPONIN-I Collected: 09/20/2018 Status: F Source: [place] 3:16 PM [facility] REPOSITORY Order Comment: 'TROP' Serial specimen #1, #2 or #3: 1 TYPE CODE TESTS RESULT OUT OF RANGE REFERENCE UNITS LAB L501.4010 <0.045 ng/mL Normal < 0.015 TROPONIN-I Result Comment: TROPONIN-I EXPECTED VALUES <0.045 Negative 0.045 - 0.590 Consistent with Cardiac Damage > OR = 0.600 Critical Value Not every elevated troponin is indicative of UT. These values should be used with clinical judgement in examining the patient's clinical picture for diagnosis. To establish a diagnosis of UT versus myocardial injury, there must be a demonstrated rise and/or fall in the troponin values, in addition to ischemic symptoms, EKG changes, new regional wall motion abnormality, and/or angiographical evidence. PLEASE NOTE: REFERENCE RANGES EDITED 18 Performed By: #### L500.4100, L501.4010 #### [facility] [address] [place], [address] BEDSIDE GLUCOSE Collected: 09/20/2018 Status: F Source: [place] 11:58 AM [facility] REPOSITORY TYPE CODE TESTS RESULT OUT OF REFERENCE UNITS RANGE LAB L501.080 70-110 mg/dL High BEDSIDE GLU 271 Result Comment: Insulin Given MANAGEMENT OF PATIENT CARE PER NURSING PROTOCOL Performed By: #### L501.080 #### [facility] Point of Care [address] [place] [address] BEDSIDE GLUCOSE Collected: 09/20/2018 Status: F Source: DOM 6:41 AM [facility] REPOSITORY TYPE CODE TESTS RESULT OUT OF REFERENCE UNITS RANGE LAB L501.080 70-110 mg/dL High BEDSIDE GLU 233 Result Comment: MANAGEMENT OF PATIENT CARE PER NURSING PROTOCOL Performed By: #### L501.080 #### [facility] Point of Care [address] [place] [address] BEDSIDE GLUCOSE Collected: 09/19/2018 Status: F Source: DOM 10:16 PM [facility] REPOSITORY TYPE CODE TESTS RESULT OUT OF REFERENCE UNITS RANGE LAB L501.080 70-110 mg/dL High BEDSIDE GLU 249 Result Comment: MANAGEMENT OF PATIENT CARE PER NURSING PROTOCOL Performed By: #### L501.080 #### [facility] Point of Care [address] [place] [address] BEDSIDE GLUCOSE Collected: 09/19/2018 Status: F Source: DOM 4:36 PM [facility] REPOSITORY TYPE CODE TESTS RESULT OUT OF REFERENCE UNITS RANGE LAB L501.080 70-110 mg/dL High BEDSIDE GLU 194 Result Comment: MANAGEMENT OF PATIENT CARE PER NURSING PROTOCOL Performed By: #### L501.080 #### [facility] Point of Care [address] [place] [address] 12 LEAD ELECTROCARDIOGRAM Observed: 09/19/2018 Status: F Source: DOM 2:06 PM [facility] REPOSITORY [facility] Cardi[facility] Services [address] [place] [address] 12 Lead EKG 09/18/18 0546 MR#: [id number] Acct: [id number] Name: MEGAN HOLLOWAY Derrick Rep #: [id number] : 1945 73 From: Ronaldo Mishra MD Attending Dr: Shelia Sterling Status: ADM IN Ordering Dr: Kimmie Nur MD Date: 09/18/18 Location: U Sex: M C Admitted: 09/17/18 Test Reason : AM EKG Blood Pressure : / mmHG Vent. Rate : 095 BPM Atrial Rate : 095 BPM P-R Int : 168 ms QRS Dur : 088 ms QT Int : 368 ms P-R-T Axes : 042 -33 -07 degrees QTc Int : 462 ms Normal sinus rhythm Left axis deviation Septal infarct (cited on or before 09-SEP-2010) Inferior infarct , age undetermined Abnormal ECG When compared with ECG of 01-JUN-2018 05:57, Premature atrial complexes are no longer Present Confirmed by RONALDO MISHRA MD ([id number]), design editor MANA MILLER ([id number]) on 09/19/2018 2:05:57 PM Referred By: Kimmie Nur Confirmed By:RONALDO MISHRA MD 09/19/18 1406 Date Ronaldo Mishra MD CC: Sheila Sterling; Kimmie Nur MD; Jayme Harry MD Signed 12 LEAD ELECTROCARDIOGRAM Observed: 09/19/2018 Status: F Source: [place] 2:02 PM [facility] REPOSITORY [facility] [address] [place] [address] 12 Lead EKG 09/17/182039 MR#: [id number] Acct: [id number] Name: MEGAN HOLLOWAY Rep #: [id number] : 1945 73 From: Ronaldo Mishra MD Attending Dr: Shelia Sterling Status: ADM IN Ordering Dr: Susan Escobar MD Date: 09/17/18 Location: [facility] Sex: M C Admitted: 09/17/18 Test Reason : Blood Pressure : / mmHG Vent. Rate : 109 BPM Atrial Rate : 109 BPM P-R Int : 162 ms QRS Dur : 086 ms QT Int : 344 ms P-R-T Axes : 032 -32 -23 degrees QTc Int : 463 ms Sinus tachycardia Left axis deviation Inferior infarct , age undetermined Anterolateral infarct , age undetermined Abnormal ECG Confirmed by RONALDO MISHRA MD ([id number]), design editor MANA MILLER ([id number]) on 09/19/2018 2:01:56 PM Referred By: Kimmie Nur Confirmed By:RONALDO MSIHRA MD 09/19/18 1402 Date Ronaldo Mishra MD CC: MD Vickie Escobar; Shelia Sterling; Kimmie Nur MD; Jayme Harry MD Signed BEDSIDE GLUCOSE Collected: 09/19/2018 Status: F Source: DOM 11:34 AM [facility] REPOSITORY TYPE CODE TESTS RESULT OUT OF REFERENCE UNITS RANGE LAB L501.080 70-110 mg/dL High BEDSIDE GLU 241 Result Comment: MANAGEMENT OF PATIENT CARE PER NURSING PROTOCOL Performed By: #### L501.080 #### [facility] Point of Care [address] [place] [address] BEDSIDE GLUCOSE Collected: 09/19/2018 Status: F Source: DOM 7:05 AM [facility] REPOSITORY TYPE CODE TESTS RESULT OUT OF REFERENCE UNITS RANGE LAB L501.080 70-110 mg/dL High BEDSIDE GLU 190 Result Comment: MANAGEMENT OF PATIENT CARE PER NURSING PROTOCOL Performed By: #### L501.080 #### [facility] Point of Care [address] [place] [address] BASIC METABOLIC Collected: 09/19/2018 Status: F Source: DOM PROFILE (BMP) 5:09 AM [facility] REPOSITORY TYPE CODE TESTS RESULT OUT OF RANGE REFERENCE UNITS LAB L501.0100 74-106 mg/dL High GLU 168 Result Comment: Fasting Glucose result greater than or equal to 126 mg/dL suggests DIABETES MELLITUS per A.D.A. criteria. Please note revised GLUCOSE reference range effective 2017. LAB L501.1000 7-18 mg/dL High BUN 21 LAB L501.1100 0.70-1.30 mg/dL Normal CREAT,SERUM 0.96 Result Comment: The validity of the calculated GFR AND GFRAA in patients over 70 years has not been determined. Clinical correlation is essential. LAB L501.1110 >60 mL/min Normal EST GFR 81 Result Comment: Non- GFR Calc LAB L501.1115 >60 mL/min Normal EST GFR - AA 98 Result Comment: GFR Calc LAB L501.1255 ml/min Normal Estimated CRCL 63.12 LAB L501.1300 10-20 RATIO High BUN/CRE 21.8 LAB L501.2200 8.5-10 mg/dL Normal .1 CA 8.7 LAB L501.5300 136-14 mmol/L Normal 5 NA 139 LAB L501.5600 3.5-5. mmol/L Normal 1 K 3.7 LAB L501.5900 98-107 mmol/L Normal CL 103 LAB L501.6100 21.0-3 mmol/L Normal 2.0 CO2 25.0 LAB L501.6200 5-15 Normal GAP 11 Performed By: #### L500.2500 #### [facility] [address] [facility] [place], [place], [address] CBC-COMPLETE BLOOD CNT Collected: 09/19/2018 Status: F Source: DOM NO DIFF 5:09 AM [facility] REPOSITORY TYPE CODE TESTS RESULT OUT OF RANGE REFERENCE UNITS LAB L100.1000 4.4-11.0 K/mm3 High WBC 15.4 LAB L100.1200 4.6-6.2 M/mm3 Low RBC 4.30 LAB L100.1300 13.0-16.5 g/dl Low HGB 12.9 LAB L100.1400 40-54 % Low HCT 38.7 LAB L100.1500 80-94 fL Normal MCV 90.0 LAB L100.1600 27.0-32.0 pg Normal MCH 30.0 LAB L100.1700 32-36 g/gl Normal MCHC 33.3 LAB L100.1810 11.6-14.6 % High RDW CV 15.2 LAB L100.1820 35.1-43.9 fl High RDW SD 49.5 LAB L100.1900 150-450 K/mm3 Normal PLT 260 LAB L100.2000 6.2-12.0 fl Normal MPV 11.4 Performed By: #### L100.0500 #### [facility] [address] [facility] [place], [place], [address] MAGNESIUM Collected: 09/19/2018 Status: F Source: DOM 5:09 AM [facility] REPOSITORY TYPE CODE TESTS RESULT OUT OF RANGE REFERENCE UNITS LAB L501.5200 1.6-2.6 mg/dL Normal MG 1.6 Performed By: #### L501.5200, L501.9520 #### [facility] [address], [address] THYROID STIM HORMONE Collected: 09/19/2018 Status: F Source: DOM (TSH) 5:09 AM [facility] REPOSITORY TYPE CODE TESTS RESULT OUT OF RANGE REFERENCE UNITS LAB L501.9520 0.358-3.74 uIU/mL Low TSH 0.22 Performed By: #### L501.5200, L501.9520 #### [facility] [address] [place], [address] BEDSIDE GLUCOSE Collected: 09/18/2018 Status: F Source: DOM 10:22 PM [facility] REPOSITORY TYPE CODE TESTS RESULT OUT OF REFERENCE UNITS RANGE LAB L501.080 70-110 mg/dL High BEDSIDE GLU 180 Result Comment: MANAGEMENT OF PATIENT CARE PER NURSING PROTOCOL Performed By: #### L501.080 #### [facility] Point of Care [address] [place] [address] BEDSIDE GLUCOSE Collected: 09/18/2018 Status: F Source: DOM 4:25 PM [facility] REPOSITORY TYPE CODE TESTS RESULT OUT OF REFERENCE UNITS RANGE LAB L501.080 70-110 mg/dL High BEDSIDE GLU 112 Result Comment: MANAGEMENT OF PATIENT CARE PER NURSING PROTOCOL Performed By: #### L501.080 #### [facility] Point of Care [address] [facility] [place] [address] SOFT TISSUE NECK WITH Observed: 09/18/2018 Status: F Source: DOM CONTRAST 2:37 PM [facility] REPOSITORY [facility] Imaging Services [address] [place] [address] Soft Tissue Neck WITH Contrast MR#: [id number] Acct: [id number] Name: MEGAN HOLLOWAY Derrick Rep #: [id number] : 1945 M 73 From: Shad Macias MD PCP: Jayme Harry MD Status: ADM IN Study: Soft Tissue Neck WITH Contrast Date of Exam: 09/18/18 Exam# [id number] Ordering Dr: Margie Hu NP-C STUDY: CT SOFT TISSUE NECK WITH CONTRAST REASON FOR EXAM: Male, 73 years old. Difficulty swallowing. Severe cough. RADIATION DOSAGE (If Supplied By Facility): CTDIvol = ( 19.47 ) mGy, DLP = ( 583.52 ) mGycm TECHNIQUE: The patient was scanned in a multi-detector CT scanner. High resolution transaxial imaging was performed following intravenous administration of 75 ml of Isovue 300 contrast material. Sagittal and coronal images were reconstructed. Individualized dose optimization techniques were used for this CT. COMPARISON: None. FINDINGS: Normal bilateral parotid glands. Normal bilateral enrollment representative spaces. Normal bilateral parapharyngeal spaces. Normal bilateral carotid spaces. Normal bilateral sublingual and submandibular glands and spaces. Normal visualized nasopharynx. Normal retropharyngeal space. Normal perivertebral space. Normal visualized bilateral faucial tonsils. The visualized tongue, tongue base and oropharynx are normal. The visualized cervical lymph nodes (levels I-) are within normal size limits, and maintain normal morphology. There is no demonstrated solid or cystic mass lesion. There is no abnormal contrast enhancement. Normal epiglottis, bilateral vallecula and hypopharynx. The pre-epiglottic and paraglottic adipose spaces are normal. Normal visualized bilateral piriform sinuses, aryepiglottic folds, vocal cords, and arytenoid-cricoid articulations. Normal subglottic trachea. Subcentimeter hypodensity in the superior pole of the right lobe. Normal visualized pulmonary apices. Mild degree of mucosal thickening of the left maxillary sinus. Minimal nodular thickening of the mucosa along the inferior medial aspect of the right maxillary sinus. Mucosal thickening of the right sphenoid sinus. The patient is status post laminectomy and fusion of the cervical spine. Multilevel disc space narrowing and spondylosis of the cervical spine. Azygos lobe. Mild increased markings in the medial aspect of the right upper lobe. This may represent scarring or atelectasis. CT/Soft Tissue Neck WITH Contrast IMPRESSION: Mild degree of sinusitis. Electronically Signed: Shad Macias MD at 15:51 EST Tel [phone], Service support , CC: TERESE Hu; Jayme Harry MD Multiple Cut Off Saw Operator: Signed LACTIC ACID Collected: 09/18/2018 Status: F Source: DOM 1:31 PM [facility] REPOSITORY TYPE CODE TESTS RESULT OUT OF REFERENCE UNITS RANGE LAB L503.6005 0.4-2.0 mmol/L High alert LACTIC ACID 4.5 Result Comment: Critical Result(s) Called at: 14:12:46 09/18/2018 by: Ilene fairchild [facility] Performed By: #### L503.6005 #### [facility] [address] [facility] [place], [place], [address] BEDSIDE GLUCOSE Collected: 09/18/2018 Status: F Source: DOM 11:20 AM [facility] REPOSITORY TYPE CODE TESTS RESULT OUT OF REFERENCE UNITS RANGE LAB L501.080 70-110 mg/dL High BEDSIDE GLU 200 Result Comment: MANAGEMENT OF PATIENT CARE PER NURSING PROTOCOL Performed By: #### L501.080 #### [facility] Point of Care [address] [place] [address]. [place] [place], [place] [id number] LACTIC ACID Collected: 09/18/2018 Status: F Source: DOM 8:40 AM [facility] REPOSITORY Order Comment: Yes/No query for Sepsis Lactate Rule Y TYPE CODE TESTS RESULT OUT OF REFERENCE UNITS RANGE LAB L503.6005 0.4-2.0 mmol/L High alert LACTIC ACID 4.2 Result Comment: Critical Result(s) Called at: 09:58:51 09/18/2018 by: Ilene [facility] Performed By: #### L503.6005 #### [facility] [address] [facility] [address] [place], [place], [id number] BEDSIDE GLUCOSE Collected: 09/18/2018 Status: F Source: DOM 6:52 AM [facility] REPOSITORY TYPE CODE TESTS RESULT OUT OF REFERENCE UNITS RANGE LAB L501.080 70-110 mg/dL High BEDSIDE GLU 222 Result Comment: MANAGEMENT OF PATIENT CARE PER NURSING PROTOCOL Performed By: #### L501.080 #### [facility] Point of Care [address] [place], [place] [address] CBC W/DIFF, AUTOMATED Collected: 09/18/2018 Status: F Source: [place] 5:26 AM [facility] REPOSITORY TYPE CODE TESTS RESULT OUT OF RANGE REFERENCE UNITS LAB L100.1000 4.4-11.0 K/mm3 High WBC 13.4 LAB L100.1200 4.6-6.2 M/mm3 Low RBC 4.28 LAB L100.1300 13.0-16.5 g/dl Low HGB 12.9 LAB L100.1400 40-54 % Low HCT 38.8 LAB L100.1500 80-94 fL Normal MCV 90.7 LAB L100.1600 27.0-32.0 pg Normal MCH 30.1 LAB L100.1700 32-36 g/gl Normal MCHC 33.2 LAB L100.1810 11.6-14.6 % High RDW CV 15.0 LAB L100.1820 35.1-43.9 fl High RDW SD 49.5 LAB L100.1900 150-450 K/mm3 Normal PLT 262 LAB L100.2000 6.2-12.0 fl Normal MPV 10.8 LAB L100.2100 47-70 % High NEUT% 87.8 LAB L100.2200 19-41 % Low LY% 10.4 LAB L100.2300 0-10 % Normal MONO% 1.3 LAB L100.2400 0-5 % Normal EO% 0.0 LAB L100.2500 0-1 % Normal BASO% 0.1 LAB L100.2550 0.0-0.9 % Normal IM GRAN % 0.400 Result Comment: IG% - Immature Granulocytes (promyelocytes, myelocytes and metamyelocytes) > 1% indicates that a LEFT SHIFT is Present. LAB L100.2620 2.0-7.7 X10 3/uL High Absolute Neut 11.8 LAB L100.2720 0.83-4.51 X10 3/ul Normal Absolute Lymph 1.40 Performed By: #### L100.0100 #### [facility] [address] [place], [address] BASIC METABOLIC Collected: 09/18/2018 Status: F Source: [place]FILE [place] [place] 5:26 AM [facility] REPOSITORY TYPE CODE TESTS RESULT OUT OF RANGE REFERENCE UNITS LAB L501.0100 74-106 mg/dL High GLU 211 Result Comment: Glucose result greater than or equal to 200 mg/dL suggests DIABETES MELLITUS per A.D.A. criteria. Please note revised GLUCOSE reference range effective 2017. LAB L501.1000 7-18 mg/dL High BUN 19 LAB L501.1100 0.70-1.30 mg/dL Normal CREAT,SERUM 1.13 Result Comment: The validity of the calculated GFR AND GFRAA in patients over 70 years has not been determined. Clinical correlation is essential. LAB L501.1110 >60 mL/min Normal EST GFR 67 Result Comment: Non- GFR Calc LAB L501.1115 >60 mL/min Normal EST GFR - AA 82 Result Comment: GFR Calc LAB L501.1255 ml/min Normal Estimated CRCL 53.62 LAB L501.1300 10-20 RATIO Normal BUN/CRE 16.8 LAB L501.2200 8.5-10 mg/dL Low .1 CA 8.0 LAB L501.5300 136-14 mmol/L Normal 5 NA 143 LAB L501.5600 3.5-5. mmol/L Normal 1 K 3.9 LAB L501.5900 98-107 mmol/L High CL 108 LAB L501.6100 21.0-3 mmol/L Normal 2.0 CO2 23.0 LAB L501.6200 5-15 Normal GAP 12 Performed By: #### L500.2500 #### [facility] [address] [place], [address] LACTIC ACID Collected: 09/18/2018 Status: F Source: DOM 5:26 AM [facility] REPOSITORY Order Comment: Yes/No query for Sepsis Lactate Rule Y TYPE CODE TESTS RESULT OUT OF REFERENCE UNITS RANGE LAB L503.6005 0.4-2.0 mmol/L High alert LACTIC ACID 4.3 Result Comment: Critical Result(s) Called at: 06:09:26 09/18/2018 by: Mario Honeycutt RN (U) Performed By: #### L503.6005 #### [facility] [address] [place], [address] HISTORY AND PHYSICAL Observed: 09/18/2018 Status: F Source: [place] EXAM 3:51 AM [facility] REPOSITORY [facility] Medical Records Department [address] [place] [address] History and Physical 09/17/18 2314 MR#: [id number] Acct: [id number] Name: MEGAN HOLLOWAY Rep #: [id number] : 1945 73 From: Kimmie Nur MD PCP: Jayme Harry MD Status: ADM IN Y Location: [address] History of Present Illness Date of Admission: 09/17/18 Chief Complaint: shortness of breath The patient is a 73 year old M with a PMH as listed below. He was admitted with a complaint of worsening shortness of breath, cough and wheezing for the past 2 weeks. Patient went to [place] to visit relatives and says some of his family members had an URTI. He subsequently developed fever, a cough and shortness of breath. He also had associated wheezign. He was started on Augmentin and oral prednisone by his PCP but symptoms did not resolve and actually worsened. He has a history of asthma for which he uses inhalers at he has been using them but still not improving. He denied any chest pain, any history of DVT or PE, any abdominal pain, any diarrhea vomiting. Review of systems otherwise negative. Vitals in the ED was significant for elevated blood pressure in the 170s systolic and he was saturating at 95% on 2 L of oxygen. Labs were significant for creatinine of 1.4 and lactic acid of 5.9. CBC showed white cell count of 16.4 and was otherwise normal. BNP was 74.6 and initial troponin was negative. Chest x-ray showed no acute cardiopulmonary process. He is being admitted to be managed for asthma exacerbation and URTI. [] Past Medical History Past Medical History (Chronic Problems): Chronic Problems DM2 (diabetes mellitus, type 2) (Chronic) Inflammatory bowel disease (Chronic) Benign essential HTN (Chronic) Rheumatoid aortitis (Chronic) Allergies aspirin Allergy (Verified 09/17/18 20:04) Swelling morphine Adverse Reaction (Verified 09/17/18 20:04) UNABLE TO URINATE Home Medications: Ambulatory Orders Medication Instructions Recorded Amlodipine/Benazepril [Lotrel 1 capsule PO DAILY 07/20/13 10-40 MG Capsule] Gabapentin [Neurontin] 600 mg PO BID 07/20/13 Finasteride [Proscar] 5 mg PO DAILY 03/14/15 Surgical History: no surgical history, noncontributory, - - Fusion of the cervical spine, lumbar spine surgery, bilateral knee replacements, partial colon resection due to diverticulitis Psychiatric History: No pertinent psych hx Smoking Status: Former smoker - *Family History Maternal History Items: Heart Disease Paternal History Items: COPD, Heart Disease Review of Systems Constitutional: Reports: Malaise, Weakness, Fatigue. Denies: Chills, Fever, Weight Change Eyes: Denies: Blurred vision HEENT: Denies: Head Aches, Sinus Congestion, Sinus Drainage Cardiovascular: Denies: Chest Pain, Chest Pressure, Chest Tightness, Light Headedness, Palpitations, Syncope Respiratory: Reports: Cough, Shortness of Breath, Shortness of breath at rest, Shortness of breath upon exertion, Wheezing. Denies: Sputum production Gastrointestinal: Denies: Abdominal Pain, Nausea, Vomiting Genitourinary: Denies: Dysuria Musculoskeletal: Denies: Joint Pain, Joint Tenderness Skin: Denies: Rash, Wounds Neurological: Denies: Numbness, Tingling, Focal weakness Psychiatric: Denies: Anxiety, Depression, Homicidal Ideations, Suicidal Ideations Hematologic/ Lymphatic: Denies: Easy Bruising, Easy Bleeding VTE Information - Inpt Only VTE Present on Admission: No VTE Pharm Prophylaxis ordered?: Yes - Physical Exam General: Alert, Oriented x3, Cooperative, No apparent distress HEENT: Atraumatic, PERRLA, EOMI, Normocephalic Oral: Moist Mucosa Neck: Supple, No JVD, Negative Carotid Bruits Lungs: - - coarse expiratory wheezing and rhonchi in all lung kuo; Cardiovascular: Regular rate, Regular Rhythm, Normal S1, Normal S2, No murmurs Abdomen: Bowel Sounds Present, Soft, Non Tender Extremities: No clubbing, No cyanosis, No edema, Capillary Refill Less than 3 Seconds Skin: No rashes, No breakdown Musculoskeletal: No Tenderness to Palpation of Joints or Extremities Lymphatic: No Cervical, Supraclavicular, or Inguinal Adenopathy Neurological: Cranial nerves II-XII grossly intact, Neuro grossly intact, Motor Exam 5/5 strength throughout Psych/Mental Status: Normal Affect, Appropriate, Alert and oriented to time, place, person, mood and affect Vital Signs Temp Pulse Resp BP Pulse Ox 98.3 F 99 20 H 155/90 H 93 09/17/18 22:06 09/17/18 22:06 09/17/18 22:06 09/17/18 22:05 09/17/18 22:06 Oxygen Flow Rate (L/min) 2 Oxygen Delivery Method Nasal Cannula Weight: 206 lb Body Mass Index (BMI) 33.2 Finger Stick Blood Glucose 151 Laboratory Tests Past 24 Hrs WBC RBC Hgb Hct MCV MCH MCHC RDW RDW Differential Plt Count MPV Immature Gran % (Auto) Diagnostic Data Chest X-Ray 09/17/18 20:04 IMPRESSION: Normal x-ray examination of the chest. Electronically Signed: Estuardo Gotti MD at 20:56 EST , Service support , Assessment/Plan All Active Problems Cough productive of purulent sputum (Acute) Left wrist pain (Acute) Ureteral calculus, right (Acute) Hyperlipidemia (Acute) Shortness of breath (Acute) Chest tightness (Acute) Syncopal episodes (Acute) 73 y/o admitted with a complaint of low grade fever, shortness of breath and cough 1. Acute respiratory insufficiency due to asthma exacerbation * usually not on oxygen at home. Now requiring 2L of oxygen * has coarse crackles in all lung kuo, with expiratory rhonchi and wheezing * failed outpatient steroids and augmentin treatment * CXR showed no acute cardiopulmonary process * admit to [facility] with telemetry * IV solumedrol 40mg q8 * IV levaquin 500mg daily * PO robitussin for cough * breathing treatments with ativan * check respiratory panel 2. Acute asthma exacerbation likely precipitated by URTI * as under 1. breathing treatments with atrovent. IV solumedrol 3. LActic acidosis: lactic acid was 5.9 on admission. Will hydrate and repeat. 4. Hypertension: * Blood pressure elevated in 170s on admission. Likely due to patient's agitation from severe cough. * Resume BP meds- chlorthalidone, amlodipine/benazepril and metoprolol * IV hydralazine as needed. 5. BPH: on Finasteride. 6. Diabetes mellitus:on glimepiride and metformin. ISS. Accuchecks ACHS 7.Hyperlipidemia: on statin 8. Rheumatoid arthritis: on remicaid. DVT prophylaxis: heparin code status: full code * Patient and counseled extensively about different types of CODE STATUS including full code, DNR CCA and DNR CCA. Patient elects to be full code. Total hitn-gk-lmca time 17 minutes. Code Visit Inpatient E AND M: 26301 Init Hosp L3 Procedures: 09565 Advncd Care Plan 30 Min 09/18/18 0351 <Electronically signed by Kimmie Nur MD> Date Kimmie Nur MD Cosigner Signature: Date (if applicable) CC: Kimmie Nur MD; Jayme Harry MD Signed LACTIC ACID Collected: 09/18/2018 Status: F Source: DOM 2:00 AM [facility] REPOSITORY TYPE CODE TESTS RESULT OUT OF REFERENCE UNITS RANGE LAB L503.6005 0.4-2.0 mmol/L High alert LACTIC ACID 4.4 Result Comment: Critical Result(s) Called at: 02:40:53 09/18/2018 by: Ramya OLIVEIRA Performed By: #### L503.6005 #### [facility] [address] [place], [place], [id number] URINALYSIS, COMPLETE Collected: 09/18/2018 Status: F Source: DOM 12:50 AM [facility] REPOSITORY Order Comment: Order Date: 09/17/18 How was Urine Obtained? CLEAN CATCH TYPE CODE TESTS RESULT OUT OF RANGE REFERENCE UNITS LAB L400.3000 Yellow COLOR Normal Yellow LAB L400.3050 Clear Normal CLARITY Clear LAB L400.3200 Normal mg/dl High GLUCOSE, UR 100 LAB L400.3300 Negative mg/dL Normal BILIRUBIN URINE Negative LAB L400.3400 Negative mg/dl Normal KETONE UR Negative LAB L400.3465 1.002-1.030 Normal SP.GR. DIPSTX 1.020 LAB L400.3550 5.0 - 8.0 pH UR Normal 6.0 LAB L400.3600 Negative mg/dl High PROT DIPSTX 100 LAB L400.3700 Normal mg/dl Normal UROBILI Normal LAB L400.3750 Negative Normal NITRITE UR Negative LAB L400.3780 Negative /ul Normal OCCULT BLOOD-UR Negative LAB L400.3800 Negative /ul LEUK Normal ESTERASE Negative LAB L400.4050 0-5 /hpf WBC 0 Normal SEEN LAB L400.4100 0-5 /hpf 0 Normal RBC-UA SEEN LAB L400.4150 0-5 /hpf SQUAM 0 Normal EPI SEEN LAB L400.4300 None Seen /hpf 0 Normal BACTERIA SEEN LAB L400.4350 <or=2+ /hpf 0 Normal MUCUS, URINE SEEN LAB L400.4700 <or=2+ /hpf CA OX 2+ Normal CRYSTAL Performed By: #### L400.0001 #### [facility] [address] [place], [place], [address] Observed: 09/18/2018 Status: F Source: [place] RESPIRATORY PANEL 12:40 AM [facility] MOLECULAR REPOSITORY RP PANEL Normal Reference Range = Not Detected RESULTS CALLED TO MANNY/GARETT 09/18/18 1509 Thu Garcia. Copy of report sent to Infection Control Printer [id number] 09/18/18 1210 DCANNON. ADENOVIRUS Not Detected HUMAN METAPHNEUMO Not Detected INFLUENZA A Not Detected INFLUENZA A (SUBTYPE H1) Not Detected INFLUENZA A (SUBTYPE H3) Not Detected INFLUENZA B Not Detected PARAINFLUENZA 1 Not Detected PARAINFLUENZA 2 Not Detected PARAINFLUENZA 3 Not Detected PARAINFLUENZA 4 Not Detected RHINOVIRUS Positive for RHINOVIRUS by NAAT technology RSV A Not Detected RSV B Not Detected NAAT METHOD Testing was performed using nucleic acid amplification ORGANISM 1: RHINOVIRUS Performed By: #### M100.638 #### [facility] [address] [place], [address] BEDSIDE GLUCOSE Collected: 09/18/2018 Status: F Source: [place] 12:34 AM [facility] REPOSITORY TYPE CODE TESTS RESULT OUT OF REFERENCE UNITS RANGE LAB L501.080 70-110 mg/dL High BEDSIDE GLU 154 Result Comment: MANAGEMENT OF PATIENT CARE PER NURSING PROTOCOL Performed By: #### L501.080 #### [facility] Point of Care [address] [place] [address] EMERGENCY DEPARTMENT Observed: 09/17/2018 Status: F Source: [place] SUMMARY 11:37 PM [facility] REPOSITORY [facility] Medical Records Department [address] [place] [address] Emergency Department Summary 09/17/182053 MR#: [id number] Acct: [id number] Name: MEGAN HOLLOWAY Rep #: [id number] : 1945 73 From: Susan Escobar MD PCP: Jayme Harry MD Status: ADM IN - ER Visit Summary Date of Service: 09/17/18 Chief Complaint: [] Cough low-grade fevers for weeks failed prednisone outpatient antibiotics History of Present Illness: The patient is a 73 M [] he of COPD reports for weeks he has had a harsh cough he was recently started on Augmentin and oral prednisone that did not help he had intensification of the cough and shortness of breath he was brought in for evaluation he uses aerosolized machine at home he has no history of UT PE or DVT his COPD is generally well controlled he also reports he does receive immune modulation medication such as Remicade related to rheumatoid arthritis and colitis therapy Physical Examination: [] 200/100 heart rate 110 pulse ox 99% on 2 L temperature 99 General, no distress resting comfortably except for very harsh cough and hoarseness to his voice his airways intact HEENT is generally unremarkable The neck is supple no adenopathy Cardiovascular, regular rate and rhythm Lungs, diffuse loud wheezing in all areas very harsh cough dry nonproductive Abdomen, soft nontender Extremities, no clubbing cyanosis or edema Neurologic, awake alert answering questions appropriately moving all 4 extremities Test Results: [] Emergency Department Course and Treatment: [] In all the above screening labs aerosols, he has a risk for immunocompromise state due to the Remicade therapy and that we will start IV antibiotics Treatment Plan: [] Screening labs show white count of 16,000 creatinine about 1.5, lactic acid is about 6, he has no fever no hypotension been very stable here, no signs of sepsis or severe sepsis, he has received fluid bolus he has been medicated IV fluids etc. given all the above have asked the hospital see him for further management Disposition: [] Admits stable Impression: [], Exacerbation of COPD, pneumonia, failed outpatient therapy, elevated lactate This note was generated with [employer] software. It may contain incorrect words, spelling, and punctuation that were not noted in review of the chart prior to signing ED Disposition - Plan for ED Patient: Chief Complaint: Shortness of Breath Referrals: Jayme Hrary MD [Primary Care Provider] - What to do if you have Problems For any increased pain, shortness of breath, bleeding, nausea or vomiting, chest pain, or any unexpected problems, contact your Primary Care Provider. Call [facility] ([phone]) or report to the closest Emergency Room. Call 911 if necessary. 09/17/18 2334 <Electronically signed by Susan Escobar MD> Date Susan Escobar MD Cosigner Signature (If Indicated): Date CC: Jayme Harry MD CHEST 1 VIEW Observed: 09/17/2018 Status: F Source: [place] (PORTABLE) 8:04 PM [facility] REPOSITORY [facility] Imaging Services [address] [place], [place] [address] [place] [address] Chest 1 View (Portable) MR#: [id number] Acct: [id number] Name: MEGAN HOLLOWAY Rep #: [id number] : 1945 M 73 From: Estuardo Gtoti MD PCP: Jayme Harry MD Status: PRE ER Study: Chest 1 View (Portable) Date of Exam: 09/17/18 Exam# [id number] Ordering Dr: Susan Escobar MD STUDY: X-RAY CHEST REASON FOR EXAM: Male, 73 years old. Shortness of breath TECHNIQUE: Single frontal view of the chest. COMPARISON: CTA chest and chest x-ray January 22, 2018 FINDINGS: Cervical hardware. The lungs are clear and expanded. There is no demonstrated pleural abnormality. Normal size heart. Normal mediastinum and corina. Normal visualized pulmonary arteries. Normal visualized aortic arch and descending thoracic aorta. Normal visualized thoracic spine. Normal visualized ribs, clavicles, and shoulders. There is no demonstrated abnormality of the visualized soft tissue structures of the upper abdomen. RAD/Chest 1 View (Portable) IMPRESSION: Normal x-ray examination of the chest. Electronically Signed: Estuardo Gotti MD at 20:56 EST , Service support , CC: MD Vickie Escobar; Jayme Harry MD Multiple Cut Off Saw Operator: Signed COMPREHENSIVE METABOLIC Collected: 09/17/2018 Status: F Source: [facility] 8:00 PM [facility] REPOSITORY TYPE CODE TESTS RESULT OUT OF RANGE REFERENCE UNITS LAB L501.0100 74-106 mg/dL High GLU 288 Result Comment: Glucose result greater than or equal to 200 mg/dL suggests DIABETES MELLITUS per A.D.A. criteria. Please note revised GLUCOSE reference range effective 2017. LAB L501.1000 7-18 mg/dL High BUN 21 LAB L501.1100 0.70-1.30 mg/dL High CREAT,SERUM 1.40 Result Comment: The validity of the calculated GFR AND GFRAA in patients over 70 years has not been determined. Clinical correlation is essential. LAB L501.1110 >60 mL/min Low EST GFR 53 Result Comment: Non- GFR Calc LAB L501.1115 >60 mL/min Normal EST GFR - AA 64 Result Comment: GFR Calc LAB L501.1255 ml/min Normal Estimated CRCL 41.77 LAB L501.1300 10-20 RATIO Normal BUN/CRE 15.0 LAB L501.1500 6.4-8. g/dL High 2 T PROT 8.8 LAB L501.1800 3.2-5. g/dL Normal 0 ALB 3.9 LAB L501.1950 2.2-4. g/dL High 2 GLOB 4.9 LAB L501.2000 0.9-2. RATIO Low 4 A/G 0.8 LAB L501.2200 8.5-10 mg/dL Normal .1 CA 9.1 LAB L501.4100 15-37 U/L Normal AST 29 LAB L501.4305 45-117 U/L Normal ALK P 79 LAB L501.4405 16-61 U/L Normal ALT 46 LAB L501.4600 0.20-1 mg/dL Normal .00 T BILI 0.30 LAB L501.5300 136-14 mmol/L Normal 5 NA 141 LAB L501.5600 3.5-5. mmol/L Normal 1 K 3.9 LAB L501.5900 98-107 mmol/L Normal CL 103 LAB L501.6100 21.0-3 mmol/L Normal 2.0 CO2 24.0 LAB L501.6200 5-15 Normal GAP 14 Performed By: #### L500.4050, L100.0100 #### [facility] [address] [employer] [facility] [place], [place], [address] CBC W/DIFF, AUTOMATED Collected: 09/17/2018 Status: F Source: [place] 8:00 PM [facility] REPOSITORY TYPE CODE TESTS RESULT OUT OF RANGE REFERENCE UNITS LAB L100.1000 4.4-11.0 K/mm3 High WBC 16.4 LAB L100.1200 4.6-6.2 M/mm3 Normal RBC 5.03 LAB L100.1300 13.0-16.5 g/dl Normal HGB 15.2 LAB L100.1400 40-54 % Normal HCT 45.4 LAB L100.1500 80-94 fL Normal MCV 90.3 LAB L100.1600 27.0-32.0 pg Normal MCH 30.2 LAB L100.1700 32-36 g/gl Normal MCHC 33.5 LAB L100.1810 11.6-14.6 % High RDW CV 15.1 LAB L100.1820 35.1-43.9 fl High RDW SD 49.7 LAB L100.1900 150-450 K/mm3 Normal PLT 328 LAB L100.2000 6.2-12.0 fl Normal MPV 10.6 LAB L100.2100 47-70 % High NEUT% 75.4 LAB L100.2200 19-41 % Normal LY% 19.1 LAB L100.2300 0-10 % Normal MONO% 4.8 LAB L100.2400 0-5 % Normal EO% 0.1 LAB L100.2500 0-1 % Normal BASO% 0.1 LAB L100.2550 0.0-0.9 % Normal IM GRAN % 0.500 Result Comment: IG% - Immature Granulocytes (promyelocytes, myelocytes and metamyelocytes) > 1% indicates that a LEFT SHIFT is Present. LAB L100.2620 2.0-7.7 X10 3/uL High Absolute Neut 12.4 LAB L100.2720 0.83-4.51 X10 3/ul Normal Absolute Lymph 3.13 Performed By: #### L500.4050, L100.0100 #### [facility] [address] [place], [address] TROPONIN-I Collected: 09/17/2018 Status: F Source: [place] 8:00 PM [facility] REPOSITORY TYPE CODE TESTS RESULT OUT OF RANGE REFERENCE UNITS LAB L501.4010 <0.045 ng/mL Normal < 0.015 TROPONIN-I Result Comment: TROPONIN-I EXPECTED VALUES <0.045 Negative 0.045 - 0.590 Consistent with Cardiac Damage > OR = 0.600 Critical Value Not every elevated troponin is indicative of UT. These values should be used with clinical judgement in examining the patient's clinical picture for diagnosis. To establish a diagnosis of UT versus myocardial injury, there must be a demonstrated rise and/or fall in the troponin values, in addition to ischemic symptoms, EKG changes, new regional wall motion abnormality, and/or angiographical evidence. PLEASE NOTE: REFERENCE RANGES EDITED 18 Performed By: #### L501.4010 #### [facility] [address] [place], [address] BNP,B-TYPE NATRIURETIC Collected: 09/17/2018 Status: F Source: [place] PEPTIDE 8:00 PM [facility] REPOSITORY TYPE CODE TESTS RESULT OUT OF RANGE REFERENCE UNITS LAB L503.6620 0-100 pg/mL Normal B-TYPE 74.6 CORRINA PEP Performed By: #### L503.6620 #### [facility] [address] [place], [address] LACTIC ACID Collected: 09/17/2018 Status: F Source: DOM 8:00 PM [facility] REPOSITORY Order Comment: Yes/No query for Sepsis Lactate Rule Y TYPE CODE TESTS RESULT OUT OF REFERENCE UNITS RANGE LAB L503.6005 0.4-2.0 mmol/L High alert LACTIC ACID 5.9 Result Comment: Critical Result(s) Called at: 22:14:15 09/17/2018 by: MORENA MOSLEY RN IN ED Performed By: #### L503.6005 #### [facility] [address] [place], [address] Observed: 09/17/2018 Status: F Source: [place] CULTURE, BLOOD (WB) 8:00 PM [facility] REPOSITORY BC No growth in 5 days. Performed By: #### M200.1000 #### [facility] [address] [place], [address] BASIC METABOLIC Collected: 08/14/2018 Status: F Source: [place] PROFILE (BMP) 9:32 AM [facility] REPOSITORY TYPE CODE TESTS RESULT OUT OF RANGE REFERENCE UNITS LAB L501.0100 74-106 mg/dL High GLU 168 Result Comment: Fasting Glucose result greater than or equal to 126 mg/dL suggests DIABETES MELLITUS per A.D.A. criteria. Please note revised GLUCOSE reference range effective 2017. LAB L501.1000 7-18 mg/dL Normal BUN 16 LAB L501.1100 0.70-1.30 mg/dL Normal CREAT,SERUM 1.23 Result Comment: The validity of the calculated GFR AND GFRAA in patients over 70 years has not been determined. Clinical correlation is essential. LAB L501.1110 >60 mL/min Normal EST GFR 61 Result Comment: Non- GFR Calc LAB L501.1115 >60 mL/min Normal EST GFR - AA 74 Result Comment: GFR Calc LAB L501.1300 10-20 RATIO Normal BUN/CRE 13.0 LAB L501.2200 8.5-10.1 mg/dL CA Normal 8.7 LAB L501.5300 136-145 mmol/L NA Normal 143 LAB L501.5600 3.5-5.1 mmol/L K Normal 3.6 LAB L501.5900 98-107 mmol/L High CL 108 LAB L501.6100 21.0-32.0 mmol/L Normal CO2 25.0 LAB L501.6200 5-15 Normal GAP 10 Performed By: #### L500.2500, L501.9910 #### [facility] [address], [address] PSA,TOTAL - ANNUAL Collected: 08/14/2018 Status: F Source: DOM SCREEN 9:32 AM [facility] REPOSITORY TYPE CODE TESTS RESULT OUT OF RANGE REFERENCE UNITS LAB L501.9910 0.00-4.00 ng/mL Normal PSA,TOT 2.38 SCREEN Result Comment: This test was performed using the TPSA assay method for the [employer] chemistry system. Values obtained with different assay methods cannot be used interchangably. When changing PSA assays in the course of monitoring a patient, additional sequential testing should be carried out to confirm baseline values. Performed By: #### L500.2500, L501.9910 #### [facility] [address] [place], [address] CBC W/DIFF, AUTOMATED Collected: 06/27/2018 Status: F Source: DOM 9:09 AM [facility] REPOSITORY TYPE CODE TESTS RESULT OUT OF RANGE REFERENCE UNITS LAB L100.1000 4.4-11.0 K/mm3 Normal WBC 7.9 LAB L100.1200 4.6-6.2 M/mm3 Low RBC 4.52 LAB L100.1300 13.0-16.5 g/dl Normal HGB 13.3 LAB L100.1400 40-54 % Normal HCT 40.9 LAB L100.1500 80-94 fL Normal MCV 90.5 LAB L100.1600 27.0-32.0 pg Normal MCH 29.4 LAB L100.1700 32-36 g/gl Normal MCHC 32.5 LAB L100.1810 11.6-14.6 % High RDW CV 15.9 LAB L100.1820 35.1-43.9 fl High RDW SD 52.7 LAB L100.1900 150-450 K/mm3 Normal PLT 215 LAB L100.2000 6.2-12.0 fl Normal MPV 10.8 LAB L100.2100 47-70 % Normal NEUT% 52.2 LAB L100.2200 19-41 % Normal LY% 34.1 LAB L100.2300 0-10 % High MONO% 10.8 LAB L100.2400 0-5 % Normal EO% 2.7 LAB L100.2500 0-1 % Normal BASO% 0.1 LAB L100.2550 0.0-0.9 % Normal IM GRAN % 0.100 Result Comment: IG% - Immature Granulocytes (promyelocytes, myelocytes and metamyelocytes) > 1% indicates that a LEFT SHIFT is Present. LAB L100.2620 2.0-7.7 X10 3/uL Normal Absolute Neut 4.1 LAB L100.2720 0.83-4.51 X10 3/ul Normal Absolute Lymph 2.68 Performed By: #### L100.0100 #### [facility] [address] [place], [place] [address]all [employer] [facility] [place], [address] COMPREHENSIVE METABOLIC Collected: 06/27/2018 Status: F Source: [facility] 9:09 AM [facility] REPOSITORY TYPE CODE TESTS RESULT OUT OF RANGE REFERENCE UNITS LAB L501.0100 74-106 mg/dL High GLU 156 Result Comment: Fasting Glucose result greater than or equal to 126 mg/dL suggests DIABETES MELLITUS per A.D.A. criteria. Please note revised GLUCOSE reference range effective 2017. LAB L501.1000 7-18 mg/dL Normal BUN 16 LAB L501.1100 0.70-1.30 mg/dL Normal CREAT,SERUM 1.09 Result Comment: The validity of the calculated GFR AND GFRAA in patients over 70 years has not been determined. Clinical correlation is essential. LAB L501.1110 >60 mL/min Normal EST GFR 70 Result Comment: Non- GFR Calc LAB L501.1115 >60 mL/min Normal EST GFR - AA 85 Result Comment: GFR Calc LAB L501.1300 10-20 RATIO Normal BUN/CRE 14.7 LAB L501.1500 6.4-8.2 g/dL T Normal PROT 7.6 LAB L501.1800 3.2-5.0 g/dL Normal ALB 3.6 LAB L501.1950 2.2-4.2 g/dL Normal GLOB 4.0 LAB L501.2000 0.9-2.4 RATIO Normal A/G 0.9 LAB L501.2200 8.5-10.1 mg/dL CA Normal 8.6 LAB L501.4100 15-37 U/L Normal AST 24 LAB L501.4305 45-117 U/L Normal ALK P 64 LAB L501.4405 16-61 U/L Normal ALT 28 LAB L501.4600 0.20-1.00 mg/dL T Normal BILI 0.50 LAB L501.5300 136-145 mmol/L NA Normal 141 LAB L501.5600 3.5-5.1 mmol/L K Normal 3.9 LAB L501.5900 98-107 mmol/L CL Normal 105 LAB L501.6100 21.0-32.0 mmol/L Normal CO2 30.0 LAB L501.6200 5-15 Normal GAP 6 Performed By: #### L500.4050 #### [facility] [address] [place], [address] 12 LEAD ELECTROCARDIOGRAM Observed: 06/10/2018 Status: F Source: [place] 2:56 PM [facility] REPOSITORY [facility] Cardiovascular Services [address] [place] [address] 12 Lead EKG 06/01/18 0557 MR#: [id number] Acct: [id number] Name: MEGAN HOLLOWAY Rep #: [id number] : 1945 72 From: Chuy Manjarrez MD Attending Dr: Reyes LAUGHLIN,Surinder Rivera Status: DIS YANA Ordering Dr: Yordan De La Vega MD Date: 06/01/18 Location: MS3 Sex: M C Admitted: 05/31/18 Test Reason : PRE OP Blood Pressure : / mmHG Vent. Rate : 086 BPM Atrial Rate : 086 BPM P-R Int : 176 ms QRS Dur : 092 ms QT Int : 382 ms P-R-T Axes : 017 -35 -05 degrees QTc Int : 457 ms Sinus rhythm with Premature atrial complexes Left axis deviation /LAHB Septal infarct (cited on or before 09-SEP-2010) Abnormal ECG When compared with ECG of 22-JAN-2018 09:00, Premature atrial complexes are now Present Confirmed by CHUY MANJARREZ ([id number]), design editor MANA MILLER ([id number]) on 06/10/2018 2:56:47 PM Referred By: REYES Confirmed By:CHUY MANJARREZ 06/10/18 1456 Date Chuy Manjarrez MD CC: Yordan De La Vega MD; Surinder Larson MD; Jayme Harry MD Signed BEDSIDE GLUCOSE Collected: 06/01/2018 Status: F Source: DOM 12:47 PM [facility] REPOSITORY TYPE CODE TESTS RESULT OUT OF REFERENCE UNITS RANGE LAB L501.080 70-110 mg/dL High BEDSIDE GLU 152 Result Comment: Dr Harris Followed MANAGEMENT OF PATIENT CARE PER NURSING PROTOCOL Performed By: #### L501.080 #### [facility] Point of Care [address] [place] [address] BEDSIDE GLUCOSE Collected: 06/01/2018 Status: F Source: DOM 10:09 AM [facility] REPOSITORY TYPE CODE TESTS RESULT OUT OF REFERENCE UNITS RANGE LAB L501.080 70-110 mg/dL High BEDSIDE GLU 151 Result Comment: MANAGEMENT OF PATIENT CARE PER NURSING PROTOCOL Performed By: #### L501.080 #### [facility] Point of Care [address] [place] [address] OPERATIVE REPORT Observed: 06/01/2018 Status: F Source: DOM 9:58 AM [facility] REPOSITORY [facility] Medical Records Department [address] [facility] [place] [address] Operative Report 06/01/18 0955 MR#: [id number] Acct: [id number] Name: MEGAN HOLLOWAY Rep #: [id number] : 1945 72 From: Surinder Larson MD PCP: Jayme Harry MD Status: ADM YANA Y Location: [place] [address] Problem List (1) Ureteral calculus, right Status: Acute Report of Operation Date of Procedure: 06/01/18 Pre-Operative Diagnosis: Right ureteral calculi causing obstruction of the right kidney and hydronephrosis and pain Post-Operative Diagnosis: Same Surgery/Procedure Performed:: Cystoscopy, balloon dilation of the right ureter, placement of a axis sheath, right ureteroscopy laser lithotripsy of stone, basket of fragments, right retrograde pyelogram, and right stent placement Description of Surgical Findings:: 72-year-old male was admitted to the hospital with severe pain from obstructing stone in the proximal right ureter causing hydronephrosis. 72-year-old male taken back to the operating room after smooth induction of general anesthesia he was placed supine on the table in the dorsolithotomy position, penis and testicles were prepped and draped in usual sterile fashion. I went into the bladder with a 21 Belarusian rigid cystourethroscope, I then cannulated the right ureteral orifice with a wire and then over the wire advanced the balloon dilator then balloon dilated the distal right ureter, I then left the wire in place and at all over the wire advanced and access sheath into the ureter axis sheath was put up shelter up the ureter. I then pulled the wire out the axis sheath in place and went through the access sheath up the ureter and encountered the stone in the proximal ureter the stone was then flushed and pushed back into the pelvis of the kidney I then used a 270 m laser fiber advanced it through the sheath and through the ureteroscope once I reached the stone I used energy settings of 5 Hz and 2.0 J I broke the stone in 2-3 pieces that after this I went up with the basket and basketed the first piece pulled up the ureter and handed off as a specimen, I then basketed the second large piece and pulled up the ureter ureter and handed off as specimen, we then did right retrograde pyelogram is no extravasation contrast the ureter was intact no injury or damage to the collecting system work my way down the ureter with the ureteroscope pulled this out but a wire up the sheath and then pulled the sheath out and then over the wire I backloaded with the cystoscope and then pushes stent up into the right kidney it was a 6 Belarusian by 26 cm stent once a stent was in good position pulled the wire the stent coiled in the kidney bladder in good position drain the bladder patient anesthetic was reversed and is taken back to PACU good condition plan to see him back in about a week to get stent out. Type of Anesthesia:: General Drains: stent - Admit VTE Documentation VTE Present on Admission: No VTE Mechan Device Prophylaxis: SCD's 06/01/18957 <Electronically signed by Surinder Larson MD> Date Surinder Larson MD CC: Surinder Larson MD; Jayme Harry MD Signed DISCHARGE INSTRUCTION Observed: 06/01/2018 Status: F Source: [place] 9:11 AM [facility] REPOSITORY [facility] Medical Records Department [address] [place] [address] Instructions for Home/Discharge Instructions 06/01/18908 MR#: [id number] Acct: [id number] Name: MEGAN HOLLOWAY Rep #: [id number] : 1945 72 From: Surinder Larson MD PCP: Jayme Harry MD Status: ADM YANA Discharge Diet: Light diet - advance as tolerated Discharge Activity: Return to Normal Activity, May not drive while taking narcotic pain medications. Call your doctor if your incision/area has: Continuous Slow Oozing, Sudden Increased Bleeding, Increased Pain/ Swelling, Increased Redness, Foul Smelling Discharge, Swelling at the incision site Suture Line Care: Avoid Pulling/Pushing, Avoid Pinching/Bending Instructions: ED Stone Renal W Colic Allergies/Adverse Reactions: Allergies aspirin Allergy (Verified 05/31/18 19:41) Swelling morphine Adverse Reaction (Verified 05/31/18 19:41) UNABLE TO URINATE Medications to take at Discharge Amlodipine/Benazepril [Lotrel 10-40 MG Capsule] 1 capsule PO DAILY 07/20/13 Calcium (Elemental) [Caltrate-600] 600 mg PO DAILY 07/20/13 Duloxetine Hcl [Cymbalta] 30 mg PO BID 07/20/13 Gabapentin [Neurontin] 1,800 mg PO TID 07/20/13 Multivit-Min/FA/Lycopene/Lut [Century Mature Formula Tablet] 1 dose PO DAILY 07/20/13 [place]-3 Fatty Acids/Fish Oil [Fish Oil 1,000 mg Softgel] 1 each PO DAILY 07/20/13 Finasteride [Proscar] 5 mg PO DAILY 03/14/15 Metformin HCl [Glucophage] 1,000 mg PO BIDCM 03/14/15 Balsalazide Disodium 2,250 mg PO BID 11/04/16 Simvastatin [Zocor] 40 mg PO QHS 11/04/16 Chlorthalidone [Hygroton] 50 mg PO DAILY 12/24/16 Infliximab-DYYB [Inflectra] 100 mg IV QMONTH 02/18/17 Esomeprazole Magnesium [Nexium 24Hr] 22.3 mg PO DAILY 04/15/17 Loratadine [Claritin] 10 mg PO QHS 04/15/17 Albuterol Sulfate [Ventolin Hfa] 2 puff INHALATION BID 01/22/18 Clonidine HCl [Catapres] 0.2 mg PO BID 01/22/18 Glimepiride [Amaryl] 2 mg PO QHS 01/22/18 Metoprolol Tartrate [Lopressor (beta andrey)] 50 mg PO BID 01/22/18 Docusate Sodium [Colace] 100 mg PO DAILY #20 capsule 05/31/18 Doxycycline 100 mg PO BID 05/31/18 Ondansetron [Zofran Odt] 4 mg PO Q8H PRN PRN #10 tablet 05/31/18 Oxycodone HCl/Acetaminophen [Percocet 5/325] 1 tablet PO Q6H PRN PRN 5 Days #20 tablet 05/31/18 Tamsulosin HCl [Flomax] 0.4 mg PO DAILY #7 capsule 05/31/18 Hydrocodone/Acetaminophen [[place] 5-325 Tablet] 1 ea PO Q4H PRN PRN 3 Days #10 tab 06/01/18 Phenazopyridine HCl [Pyridium] 100 mg PO TID PRN PRN #14 tab 06/01/18 The following prescriptions were given: Hydrocodone/Acetaminophen [[place] 5-325 Tablet] 1 ea PO Q4H PRN PRN 3 Days #10 tab PRN Reason: Pain Oxycodone HCl/Acetaminophen [Percocet 5/325] 1 tablet PO Q6H PRN PRN 5 Days #20 tablet PRN Reason: Pain Ondansetron [Zofran Odt] 4 mg PO Q8H PRN PRN #10 tablet PRN Reason: Nausea Docusate Sodium [Colace] 100 mg PO DAILY #20 capsule Phenazopyridine HCl [Pyridium] 100 mg PO TID PRN PRN #14 tab PRN Reason: buring with urination. Tamsulosin HCl [Flomax] 0.4 mg PO DAILY #7 capsule Primary Care Physician: Surinder Larson MD [STAFF PHYSICIAN] - 1 Week if not improving Test Results: Test results from this visit will be discussed in further detail at your follow-up appointment, if applicable. Please Follow Up With: Surinder Larson MD When: please call to make an appointment. Proposed Discharge Date: 06/01/18 06/01/18910 <Electronically signed by Surinder Larson MD> Date Surinder Larson MD CC: Jayme Harry MD CALCULI/STONE Observed: 06/01/2018 Status: F Source: DOM 9:00 AM [facility] REPOSITORY Patient: MEGAN HOLLOWAY : 1945 (72/M) Acct Num: [id number] Phys: Surinder Larson MD Unit Num: [id number] Loc: MS3 [id number] Specimen: [id number] Received: 06/03/18909 Spec Type: Calculi TISSUES TISSUES: CALCULI COMMENT The calculus is submitted in its entirety for chemical stone analysis. The results from this study will be reported separately. GROSS DIAGNOSIS Right renal calculi, removal: Unremarkable calculi (gross diagnosis only). AM: 06/04/18 GROSS DESCRIPTION Received in fixative is one container labeled with the patient's name and designated calculi for analysis. The specimen consists of two irregular light to dark sales calculi measuring in aggregate 0.5 x 0.2 x 0.2 cm. The calculi are submitted in their entirety for chemical stone analysis. / AM:yamini 06/03/18 CPT: 33081 HEADER OPERATION: Ureteroscopy, retrograde, balloon dilation, basket of stone PRE-OP DIAGNOSIS: Right renal calculi TISSUE SUBMITTED: Calculi for analysis Signed [facility] 06/04/18 <signature on file> Performed By: #### PCALC #### [facility] [address] [place], [address] CALCULI, URINARY W / Collected: 06/01/2018 Status: F Source: DOM PHOTO 9:00 AM [facility] REPOSITORY Order Comment: Comments: COLLECTED IN OR RENAL CALCULI FOR ANALYSIS TYPE CODE TESTS RESULT OUT OF RANGE REFERENCE UNITS LAB L3650.0200 . Normal COLOR Brown LAB L3650.0300 . mm Normal SIZE Comment Result Comment: Specimen received as fragments. LAB L3650.0400 . mg Normal WEIGHT 51.9 LAB L3650.0500 . Normal . Comment Result Comment: Percentage (Represents the % composition) LAB L3650.0600 . CA OXAL DIHYDR Test Normal not performed LAB L3650.0700 . % CA OXAL 98 Normal MONOHYD LAB L3650.0800 . % CA PHOSPHATE 02 Normal LAB L3650.0900 . MAG LENORE PHOS Test Normal not performed LAB L3650.1000 . URIC ACID Test Normal not performed LAB L3650.1100 . URIC ACID Test Normal DIHYD not performed LAB L3650.1200 . AMM ACID URATE Test Normal not performed LAB L3650.1300 . NA ACID URATE Test Normal not performed LAB L3650.1400 . CA HYDROG PHOS Test Normal not performed LAB L3650.1500 . CYSTINE Test Normal not performed LAB L3650.1600 . CHOLESTEROL Test Normal not performed LAB L3650.1700 . CA Test Normal BILIRUBINATE not performed LAB L3650.1800 . CA CARBONATE Test Normal not performed LAB L3650.1900 . TRIAMTERENE Test Normal not performed LAB L3650.2000 . NEWBERYITE Test Normal not performed LAB L3650.2100 . DRIED BLOOD Test Normal not performed LAB L3650.2200 . CELL MATERIAL Test Normal not performed LAB L3650.2250 . NIDUS Normal Comment Result Comment: Nidus composed of Calcium oxalate monohydrate. LAB L3650.2325 . Normal Test not SHELL performed LAB L3650.2350 . Normal Test not SURFACE performed [place] LAB L3650.2400 . Normal Test not COMMENT performed LAB L3650.2500 . Normal Test not COMMENT performed LAB L3650.2600 . Normal Comment PHOTO Result Comment: Photograph will follow under separate cover. LAB L3650.2700 . Normal COMMENT Comment Result Comment: Physician questions regarding Calculi Analysis [facility] at: [phone]. LAB L3650.2800 . Normal COMMENT Comment Result Comment: Calculi report with photograph will follow via computer, mail or can sterilizer delivery. LAB L3650.2900 . Normal Disclaimer Comment Result Comment: This test was developed and its performance characteristics determined by [employer]. It has not been cleared or approved by the Food and Drug Administration. Performed at: [address] [id number] Commercial Service Technician: Sam Hammond MD, Phone: [phone] Performed By: #### L3650.0100 #### [facility] (refer to report for specific site) refer to report for address and phone number BEDSIDE GLUCOSE Collected: 06/01/2018 Status: F Source: DOM 8:34 AM [facility] REPOSITORY TYPE CODE TESTS RESULT OUT OF REFERENCE UNITS RANGE LAB L501.080 70-110 mg/dL High BEDSIDE GLU 111 Result Comment: MANAGEMENT OF PATIENT CARE PER NURSING PROTOCOL Performed By: #### L501.080 #### [facility] Point [place] [address] [place] [address] HEMOGLOBIN A1C Collected: 06/01/2018 Status: F Source: DOM 5:56 AM [facility] REPOSITORY TYPE CODE TESTS RESULT OUT OF RANGE REFERENCE UNITS LAB L501.9985 4.2-6.3 % High HGB A1C 6.8 Performed By: #### L501.9985 #### [facility] [address] [place], [address] BEDSIDE GLUCOSE Collected: 06/01/2018 Status: F Source: [place] 5:42 AM [facility] REPOSITORY TYPE CODE TESTS RESULT OUT OF REFERENCE UNITS RANGE LAB L501.080 70-110 mg/dL High BEDSIDE GLU 129 Result Comment: MANAGEMENT OF PATIENT CARE PER NURSING PROTOCOL Performed By: #### L501.080 #### [facility] Point of Care [address] [place] [address] EMERGENCY DEPARTMENT Observed: 06/01/2018 Status: F Source: [place] SUMMARY 12:39 AM [facility] REPOSITORY [facility] Medical Records Department [address] [address] Emergency Department Summary 05/31/181953 MR#: [id number] Acct: [id number] Name: MEGAN HOLLOWAY Rep #: [id number] : 1945 72 From: Kip Gauthier MD PCP: Jayme Harry MD Status: ADM YANA - ER Visit Summary Date of Service: 05/31/18 Chief Complaint: Abdominal pain History of Present Illness: The patient is a [address] Cervantes and Dr. Jayme Samano. He has a history of ulcerative colitis. He has lower abdominal pain that began abruptly this morning. Is a sharp pain is 10 out of 10 severity. Is worsened by movement. He reports is been nausea and vomited 3 times. No blood in his emesis. He reports an upset diarrhea. No blood in his stools or black tarry stools. No dysuria or frequency. States this is similar to when he had diverticulitis in the past. Physical Examination: Vitals: Stable. Afebrile. General: Well-nourished and well-developed. Head: Normocephalic atraumatic. Neck: Supple, no lymphadenopathy. No JVD. Nontender. Cardiovascular: Regular rate and rhythm. No murmurs. Respiratory: No respiratory distress. Clear to auscultation bilaterally. Abdominal: Soft, mild diffuse lower abdominal tenderness, nondistended, normal bowel sounds. No guarding, rebound, or peritoneal signs. Back: Nontender. Extremities: Nontender, no edema. Skin: Normal color, no rash. Neurologic: Alert and oriented 3. Cranial nerves II through XII are intact. Normal strength and sensation. Psych: Normal affect. Test Results: CBC is marked for 7 neutrophils 77 lymphocytes 13. Chem-7 is more for glucose 180, BUN 20, creatinine 1.47. LFTs marked total protein 8.4 mg 4.4. Lipase is normal. UA shows blood without infection. CT flank shows right hydroureteronephrosis secondary to a 5.2 mm calculus in the proximal ureter. Emergency Department Course and Treatment: Patient was treated with Dilaudid and Zofran IV. He continues to complain of pain. Treatment Plan: Patient reports that his pain is too severe to go home. He was discussed with Dr. Larson. He will be admitted to the hospital for further evaluation and treatment. Disposition: Admitted in improved condition. Impression: 1. Right ureterolithiasis. 2. History of ulcerative colitis. This note was generated with [employer] dictation software. It may contain incorrect words, spelling, and punctuation that were not noted in review of the chart prior to signing ED Disposition - Plan for ED Patient: Disposition: Acute Care Hospital [facility] Chief Complaint: Abd Pain What to do if you have Problems For any increased pain, shortness of breath, bleeding, nausea or vomiting, chest pain, or any unexpected problems, contact your Primary Care Provider. Call [facility] ([phone]) or report to the closest Emergency Room. Call 911 if necessary. 06/01/18 0039 <Electronically signed by Kip Gauthier MD> Date Kip Gauthier MD Cosigner Signature (If Indicated): Date CC: Jayme Harry MD HISTORY AND PHYSICAL Observed: 05/31/2018 Status: F Source: [place] EXAM 10:16 PM [facility] REPOSITORY [facility] Medical Records Department [address] [place] [address] History and Physical 05/31/182 MR#: [id number] Acct: [id number] Name: MEGAN HOLLOWAY Rep #: [id number] : 1945 72 From: Surinder Larson MD PCP: Jayme Harry MD Status: ADM YANA Y Location: [place] [address] Problem List (1) Ureteral calculus, right Status: Acute History of Present Illness Date of Admission: 05/31/18 Chief Complaint: Right renal colic The patient is a 72 year old male with high grade obstruction on the right side admitted from the ER with pain control for a 5.5mm stone in the proximal right ureter. Past Medical History Past Medical History (Chronic Problems): Chronic Problems DM2 (diabetes mellitus, type 2) (Chronic) Inflammatory bowel disease (Chronic) Benign essential HTN (Chronic) Rheumatoid aortitis (Chronic) Allergies aspirin Allergy (Verified 05/31/18 19:41) Swelling morphine Adverse Reaction (Verified 05/31/18 19:41) UNABLE TO URINATE Home Medications: Ambulatory Orders Medication Instructions Recorded Amlodipine/Benazepril [Lotrel 1 capsule PO DAILY 07/20/13 Surgical History: no surgical history, noncontributory, - - Fusion of the cervical spine, lumbar spine surgery, bilateral knee replacements, partial colon resection due to diverticulitis Psychiatric History: No pertinent psych hx Lives: Spouse/ Significant Other Smoking Status: Former smoker Tobacco Use: Non-smoker Alcohol: None Drugs: None - *Family History Maternal History Items: Heart Disease Paternal History Items: COPD, Heart Disease Review of Systems Constitutional: Denies: Chills, Fever, Weight Change HEENT: Denies: Head Aches, Sinus Congestion, Sinus Drainage Cardiovascular: Denies: Chest Pain, Palpitations Respiratory: Denies: Cough, Shortness of breath at rest, Sputum production Gastrointestinal: Reports: Abdominal Pain. Denies: Nausea, Vomiting Genitourinary: Reports: Hematuria. Denies: Dysuria Musculoskeletal: Denies: Joint Pain, Joint Tenderness Skin: Denies: Rash, Wounds Neurological: Denies: Numbness, Tingling, Focal weakness Psychiatric: Denies: Anxiety, Depression, Homicidal Ideations, Suicidal Ideations Hematologic/ Lymphatic: Denies: Easy Bruising, Easy Bleeding VTE Information - Inpt Only VTE Present on Admission: No VTE Mechan Device Prophylaxis: SCD's Patient Problems: Active and Suspected Problems Ureteral calculus, right (Acute) - Physical Exam General: Alert, Oriented x3, Cooperative HEENT: Atraumatic, PERRLA, EOMI, Normocephalic Neck: Supple, No JVD, Negative Carotid Bruits Lungs: Clear to auscultation, Normal air movement Cardiovascular: Regular rate, No murmurs Abdomen: Bowel Sounds Present, Soft, Non Tender Extremities: No edema, Capillary Refill Less than 3 Seconds Skin: No rashes, No breakdown Musculoskeletal: No Tenderness to Palpation of Joints or Extremities Neurological: Cranial nerves II-XII grossly intact Psych/Mental Status: Normal Affect, Appropriate Vital Signs Temp Pulse Resp BP Pulse Ox 98.0 F 97 18 155/87 H 96 05/31/18 21:13 05/31/18 21:13 05/31/18 21:13 05/31/18 21:13 05/31/18 21:13 Oxygen Flow Rate (L/min) 2 Oxygen Delivery Method Nasal Cannula Weight: 95.8 kg Body Mass Index (BMI) 33.0 Assessment/Plan All Active Problems Cough productive of purulent sputum (Acute) Left wrist pain (Acute) Ureteral calculus, right (Acute) Hyperlipidemia (Acute) Shortness of breath (Acute) Chest tightness (Acute) Syncopal episodes (Acute) admit for pain control plan to take to surgery in am for Right ureteroscopy laser/basket of stone and stent. npo at ga 05/31/18 9506 <Electronically signed by Surinder Larson MD> Date Surinder Larson MD Cosigner Signature: Date (if applicable) CC: Surinder Larson MD; Jayme Harry MD Signed URINALYSIS, COMPLETE Collected: 05/31/2018 Status: F Source: DOM 7:10 PM [facility] REPOSITORY Order Comment: Order Date: 05/31/18 How was Urine Obtained? CLEAN CATCH TYPE CODE TESTS RESULT OUT OF RANGE REFERENCE UNITS LAB L400.3000 Yellow COLOR Normal Yellow LAB L400.3050 Clear Normal CLARITY Clear LAB L400.3200 Normal mg/dl Normal GLUCOSE, UR Normal LAB L400.3300 Negative mg/dL Normal BILIRUBIN URINE Negative LAB L400.3400 Negative mg/dl Normal KETONE UR Negative LAB L400.3465 1.002-1.030 Normal SP.GR. DIPSTX 1.015 LAB L400.3550 5.0 - 8.0 pH UR Normal 8.0 LAB L400.3600 Negative mg/dl High PROT 30 DIPSTX LAB L400.3700 Normal mg/dl Normal UROBILI Normal LAB L400.3750 Negative Normal NITRITE UR Negative LAB L400.3780 Negative /ul High 10 OCCULT BLOOD-UR LAB L400.3800 Negative /ul LEUK Normal ESTERASE Negative LAB L400.4050 0-5 /hpf WBC 0 Normal SEEN LAB L400.4100 0-5 /hpf Normal RBC-UA 0-5 SEEN LAB L400.4150 0-5 /hpf SQUAM Normal EPI 0-5 SEEN LAB L400.4300 None Seen /hpf 0 Normal BACTERIA SEEN LAB L400.4350 <or=2+ /hpf 0 Normal MUCUS, URINE SEEN Performed By: #### L400.0001 #### [facility] [address] [place], [address] CBC W/DIFF, AUTOMATED Collected: 05/31/2018 Status: F Source: LIV[place] 5:30 PM [facility] REPOSITORY TYPE CODE TESTS RESULT OUT OF RANGE REFERENCE UNITS LAB L100.1000 4.4-11.0 K/mm3 Normal WBC 11.0 LAB L100.1200 4.6-6.2 M/mm3 Normal RBC 4.82 LAB L100.1300 13.0-16.5 g/dl Normal HGB 14.3 LAB L100.1400 40-54 % Normal HCT 43.6 LAB L100.1500 80-94 fL Normal MCV 90.5 LAB L100.1600 27.0-32.0 pg Normal MCH 29.7 LAB L100.1700 32-36 g/gl Normal MCHC 32.8 LAB L100.1810 11.6-14.6 % High RDW CV 15.7 LAB L100.1820 35.1-43.9 fl High RDW SD 52.1 LAB L100.1900 150-450 K/mm3 Normal PLT 216 LAB L100.2000 6.2-12.0 fl Normal MPV 10.8 LAB L100.2100 47-70 % High NEUT% 77.3 LAB L100.2200 19-41 % Low LY% 13.4 LAB L100.2300 0-10 % Normal MONO% 8.9 LAB L100.2400 0-5 % Normal EO% 0.2 LAB L100.2500 0-1 % Normal BASO% 0.1 LAB L100.2550 0.0-0.9 % Normal IM GRAN % 0.100 Result Comment: IG% - Immature Granulocytes (promyelocytes, myelocytes and metamyelocytes) > 1% indicates that a LEFT SHIFT is Present. LAB L100.2620 2.0-7.7 X10 3/uL High Absolute Neut 8.5 LAB L100.2720 0.83-4.51 X10 3/ul Normal Absolute Lymph 1.47 Performed By: #### L100.0100 #### [facility] [address] [place], [place], [address] BASIC METABOLIC Collected: 05/31/2018 Status: F Source: LIVON[place] PROFILE (BMP) 5:30 PM [facility] REPOSITORY TYPE CODE TESTS RESULT OUT OF RANGE REFERENCE UNITS LAB L501.0100 74-106 mg/dL High GLU 180 Result Comment: Fasting Glucose result greater than or equal to 126 mg/dL suggests DIABETES MELLITUS per A.D.A. criteria. Please note revised GLUCOSE reference range effective 2017. LAB L501.1000 7-18 mg/dL High BUN 20 LAB L501.1100 0.70-1.30 mg/dL High CREAT,SERUM 1.47 Result Comment: The validity of the calculated GFR AND GFRAA in patients over 70 years has not been determined. Clinical correlation is essential. LAB L501.1110 >60 mL/min Low EST GFR 50 Result Comment: Non- GFR Calc LAB L501.1115 >60 mL/min Normal EST GFR - AA 60 Result Comment: GFR Calc LAB L501.1255 ml/min Normal Estimated CRCL 41.84 LAB L501.1300 10-20 RATIO Normal BUN/CRE 13.6 LAB L501.2200 8.5-10 mg/dL Normal .1 CA 9.1 LAB L501.5300 136-14 mmol/L Normal 5 NA 141 LAB L501.5600 3.5-5. mmol/L Normal 1 K 4.0 Result Comment: Moderate Hemolysis, Result may be falsely increased. LAB L501.5900 98-107 mmol/L Normal CL 105 LAB L501.6100 21.0-32.0 mmol/L Normal CO2 27.0 LAB L501.6200 5-15 Normal 9 GAP Performed By: #### L500.2500, L500.3400, L501.2450 #### [facility] [address] [place], [address] LIVER PROFILE Collected: 05/31/2018 Status: F Source: [place] 5:30 PM [facility] REPOSITORY TYPE CODE TESTS RESULT OUT OF RANGE REFERENCE UNITS LAB L501.1500 6.4-8.2 g/dL High T PROT 8.4 LAB L501.1800 3.2-5.0 g/dL Normal ALB 4.0 LAB L501.1950 2.2-4.2 g/dL High GLOB 4.4 LAB L501.4100 15-37 U/L Normal AST 31 Result Comment: Moderate Hemolysis, Result may be falsely increased. LAB L501.4305 45-117 U/L Normal ALK P 53 LAB L501.4405 16-61 U/L Normal ALT 29 LAB L501.4600 0.20-1.00 mg/dL Normal T BILI 0.50 LAB L501.4700 0.00-0.30 mg/dL Normal D BILI 0.11 Performed By: #### L500.2500, L500.3400, L501.2450 #### [facility] [address] [facility] [place], [address] LIPASE Collected: 05/31/2018 Status: F Source: [place] 5:30 PM [facility] REPOSITORY TYPE CODE TESTS RESULT OUT OF RANGE REFERENCE UNITS LAB L501.2450 73-393 U/L Normal LIPASE 82 Performed By: #### L500.2500, L500.3400, L501.2450 #### [facility] [address] [place], [address] ABDOMEN/PELVIS WITHOUT Observed: 05/31/2018 Status: F Source: DOM CONT 5:21 PM [facility] REPOSITORY [facility] Imaging Services [address] [place] [address] Abdomen/Pelvis without Cont MR#: [id number] Acct: [id number] Name: MEGAN HOLLOWAY Rep #: [id number] : 1945 M 72 From: Bridget Jackosn MD PCP: Jayme Harry MD Status: REG ER Study: Abdomen/Pelvis without Cont Date of Exam: 05/31/18 Exam# [id number] Ordering Dr: Kip Gauthier MD STUDY: CT ABDOMEN AND PELVIS WITHOUT CONTRAST REASON FOR EXAM: Male, 72 years old. Abdominal pain. RADIATION DOSAGE (If Supplied By Facility): CTDIvol = ( 15.37 ) mGy, DLP = ( 791.19 ) mGycm TECHNIQUE: Transaxial images were obtained from the dome of the diaphragm to the symphysis pubis without oral contrast, and without intravenous contrast. Sagittal and coronal images were reconstructed. Individualized dose optimization techniques were used for this CT. COMPARISON: CTAs of the chest dated November 04, 2016 and January 22, 2018 FINDINGS: There is minimal dependent atelectasis within the lower lobes. The visualized portions of the heart are within normal limits. Normal liver. Normal gallbladder and extrahepatic biliary system. Normal spleen. Normal pancreas. There is a stable small, circumscribed, smooth, low attenuation left adrenal mass, consistent with an adrenal adenoma. Normal right adrenal gland. There is right hydroureteronephrosis secondary to a 5.2 mm calculus within the proximal right ureter. There are additional nonobstructing right renal calculi measuring up to 2.2 mm. There is a 2.3 cm right renal cyst. There is a too small to characterize high attenuation focus within the lower pole the right kidney which may reflect a proteinaceous cyst. There is a nonobstructing 5 mm left renal calculus. There additional calcifications within the left kidney which may be vascular or may reflect nonobstructing calculi. Normal visualized stomach. Normal small intestine. There are multiple colonic diverticula consistent with diverticulosis. The appendix is visualized and appears normal. There is diffuse atherosclerotic calcification of the abdominal aorta, without a demonstrated aneurysm. Normal inferior vena cava. Normal retroperitoneum. Normal urinary bladder. Normal abdominal wall. There are diffuse degenerative changes of the visualized lumbar spine. There are bilateral pedicle screws noted at L2, L3 and L4. CT/Abdomen/Pelvis without Cont IMPRESSION: Right-sided hydroureteronephrosis secondary to a 5.2 mm calculus within the proximal ureter. Bilateral nonobstructing renal calculi measuring up to 5 mm within the left kidney. Atherosclerosis. Colonic diverticulosis. Electronically Signed: Bridget Jackson MD at 18:15 EDT Tel , Service support , CC: Jayme Harry MD; Kip Gauthier MD Multiple Cut Off Saw Operator: Signed EMERGENCY DEPARTMENT Observed: 05/17/2018 Status: F Source: LIVONIA SUMMARY 3:14 PM [facility] REPOSITORY [facility] Medical Records Department [address] [place] [address] Emergency Department Summary 05/17/18 1510 MR#: [id number] Acct: [id number] Name: JEWELMEGAN D Rep #: [id number] : 1945 72 From: Dom Rojo MD PCP: Jayme Harry MD Status: REG ER - ER Visit Summary Date of Service: 05/17/18 Chief Complaint: Accidental ingestion of laundry bleach History of Present Illness: The patient is a 72 M who presents after actually drinking laundry bleach. Apparently is using glass to transport bleach for cleaning. was unaware that there was 1/2 inch quarter inch of bleach at the bottom of the glass. He filled the glass with water. He drank the glass of water and complain of some irritation in his throat and warm sensation in his chest. He has not had any drooling. There is no change in voice. He denies any shortness of breath. He has no other complaints Physical Examination: Vital signs are remarkable for blood pressure 165/115. He is not hypoxic. He is in no distress. Head is atraumatic normocephalic. Pupils are equal round reactive. Extraocular muscles are intact. TMs are pearly white with landmarks noted. Nares patent with no drainage. Posterior pharynx without erythema or exudate. Uvula is midline. There is no dysphonia or dysphasia. Trachea is midline. There is no stridor with auscultation of the neck. Heart is regular without murmur, gallop or rub. S1 and S2 are normal. Lungs are clear to auscultation with good movement of air bilaterally. Test Results: None are indicated Emergency Department Course and Treatment: Apparently poison control was contacted at 1458. They inform the person who called that usually this does not cause any burn unless it is industrial-strength. Since it was not industrial trach and diluted this probably has caused some mild mucosal irritation. At this point nothing needs to be done. He will be discharged with appropriate home-going instructions Treatment Plan: Return if any drooling, change in voice or difficulty breathing. Disposition: Discharged to home Impression: Accidental ingestion of diluted bleach This note was generated with [employer] dictation software. It may contain incorrect words, spelling, and punctuation that were not noted in review of the chart prior to signing ED Disposition - Plan for ED Patient: Disposition: Home or Assisted Living Chief Complaint: Poisoning Instructions: ED Overdose Accidental Referrals: Jayme Harry MD [Primary Care Provider] - As Needed What to do if you have Problems For any increased pain, shortness of breath, bleeding, nausea or vomiting, chest pain, or any unexpected problems, contact your Primary Care Provider. Call [facility] ([phone]) or report to the closest Emergency Room. Call 911 if necessary. 05/17/18 1514 <Electronically signed by Dom Rojo MD> Date Dom Rojo MD Cosigner Signature (If Indicated): Date CC: Jayme Harry MD CBC W/DIFF, AUTOMATED Collected: 03/27/2018 Status: F Source: DOM 9:04 AM [facility] REPOSITORY TYPE CODE TESTS RESULT OUT OF RANGE REFERENCE UNITS LAB L100.1000 4.4-11.0 K/mm3 Normal WBC 6.6 LAB L100.1200 4.6-6.2 M/mm3 Low RBC 4.58 LAB L100.1300 13.0-16.5 g/dl Normal HGB 13.3 LAB L100.1400 40-54 % Normal HCT 40.6 LAB L100.1500 80-94 fL Normal MCV 88.6 LAB L100.1600 27.0-32.0 pg Normal MCH 29.0 LAB L100.1700 32-36 g/gl Normal MCHC 32.8 LAB L100.1810 11.6-14.6 % High RDW CV 15.1 LAB L100.1820 35.1-43.9 fl High RDW SD 48.9 LAB L100.1900 150-450 K/mm3 Normal PLT 257 LAB L100.2000 6.2-12.0 fl Normal MPV 10.5 LAB L100.2100 47-70 % Low NEUT% 44.8 LAB L100.2200 19-41 % Normal LY% 38.9 LAB L100.2300 0-10 % High MONO% 11.7 LAB L100.2400 0-5 % Normal EO% 4.1 LAB L100.2500 0-1 % Normal BASO% 0.3 LAB L100.2550 0.0-0.9 % Normal IM GRAN % 0.200 Result Comment: IG% - Immature Granulocytes (promyelocytes, myelocytes and metamyelocytes) > 1% indicates that a LEFT SHIFT is Present. LAB L100.2620 2.0-7.7 X10 3/uL Normal Absolute Neut 3.0 LAB L100.2720 0.83-4.51 X10 3/ul Normal Absolute Lymph 2.58 Performed By: #### L100.0100 #### [facility], [address] COMPREHENSIVE METABOLIC Collected: 03/27/2018 Status: F Source: DOM ALCALA 9:04 AM [facility] REPOSITORY TYPE CODE TESTS RESULT OUT OF RANGE REFERENCE UNITS LAB L501.0100 74-106 mg/dL High GLU 153 Result Comment: Fasting Glucose result greater than or equal to 126 mg/dL suggests DIABETES MELLITUS per A.D.A. criteria. Please note revised GLUCOSE reference range effective 2017. LAB L501.1000 7-18 mg/dL Normal BUN 13 LAB L501.1100 0.70-1.30 mg/dL Normal CREAT,SERUM 1.16 Result Comment: The validity of the calculated GFR AND GFRAA in patients over 70 years has not been determined. Clinical correlation is essential. LAB L501.1110 >60 mL/min Normal EST GFR 66 Result Comment: Non- GFR Calc LAB L501.1115 >60 mL/min Normal EST GFR - AA 79 Result Comment: GFR Calc LAB L501.1300 10-20 RATIO Normal BUN/CRE 11.2 LAB L501.1500 6.4-8.2 g/dL T Normal PROT 7.9 LAB L501.1800 3.2-5.0 g/dL Normal ALB 3.6 LAB L501.1950 2.2-4.2 g/dL High GLOB 4.3 LAB L501.2000 0.9-2.4 RATIO Low A/G 0.8 LAB L501.2200 8.5-10.1 mg/dL CA Normal 8.7 LAB L501.4100 15-37 U/L Normal AST 25 LAB L501.4305 45-117 U/L Normal ALK P 57 LAB L501.4405 16-61 U/L Normal ALT 26 LAB L501.4600 0.20-1.00 mg/dL T Normal BILI 0.50 LAB L501.5300 136-145 mmol/L NA Normal 140 LAB L501.5600 3.5-5.1 mmol/L K Normal 3.7 LAB L501.5900 98-107 mmol/L CL Normal 105 LAB L501.6100 21.0-32.0 mmol/L Normal CO2 29.0 LAB L501.6200 5-15 Normal GAP 6 Performed By: #### L500.4050 #### [facility] [address] [place], [address] 12 LEAD ELECTROCARDIOGRAM Observed: 01/24/2018 Status: F Source: DOM 1:03 PM [facility] REPOSITORY [facility] Cardiovascular Services [address] [place] [address] 12 Lead EKG 01/22/18 0900 MR#: [id number] Acct: [id number] Name: MEGAN HOLLOAWY Rep #: [id number] : 1945 72 From: Ronaldo Mishra MD Attending Dr: Laureano Lima MD Status: DIS IN Ordering Dr: Audrey Smith DO Date: 01/22/18 Location[place] [facility] [place] Sex: M C Admitted: 01/22/18 Test Reason : CP/SOB Blood Pressure : / mmHG Vent. Rate : 098 BPM Atrial Rate : 098 BPM P-R Int : 170 ms QRS Dur : 090 ms QT Int : 340 ms P-R-T Axes : 037 -31 -01 degrees QTc Int : 434 ms Normal sinus rhythm Left axis deviation Septal infarct , age undetermined Inferior infarct , age undetermined Abnormal ECG Confirmed by RONALDO MISHRA MD ([id number]), design editor MANA MILLER ([id number]) on 01/24/2018 1:03:19 PM Referred By: Marycruz Yen Confirmed By:RONALDO MISHRA MD 01/24/18 1303 Date Ronaldo Mishra MD CC: Laureano Lima MD; Jayme Harry MD; Audrey Smith DO Signed BEDSIDE GLUCOSE Collected: 01/24/2018 Status: F Source: DOM 11:17 AM [facility] REPOSITORY TYPE CODE TESTS RESULT OUT OF REFERENCE UNITS RANGE LAB L501.080 70-110 mg/dL High BEDSIDE GLU 289 Result Comment: MANAGEMENT OF PATIENT CARE PER NURSING PROTOCOL Performed By: #### L501.080 #### [facility] Point of Care [address] [place] [address] DISCHARGE SUMMARY Observed: 01/24/2018 Status: F Source: DOM 9:26 AM [facility] Medical Records Department [address] [place] [address] Discharge Summary 01/24/18 0800 MR#: [id number] Acct: [id number] Name: MEGAN HOLLOWAY Rep #: [id number] : 1945 72 From: Laureano Lima MD PCP: Jayme Harry MD Status: ADM IN Y Location: [place] [address] Discharge Date and Diagnosis - Problem List Patient Problems: Active and Suspected Problems Cough productive of purulent sputum (Acute) Left wrist pain (Acute) Date of Admission: 01/22/18 Date of Discharge: 01/24/18 - Primary Discharge Diagnosis Active and Suspected Problems Cough productive of purulent sputum (Acute) Left wrist pain (Acute) - Secondary Discharge Diagnosis Chronic Problems DM2 (diabetes mellitus, type 2) (Chronic) Inflammatory bowel disease (Chronic) Benign essential HTN (Chronic) Rheumatoid aortitis (Chronic) Hospital Course and Treatment Imaging Results: Clinical Impression(s) from Imaging Studies Chest X-Ray 01/22/18 10:07 IMPRESSION: No radiographic evidence of acute cardiopulmonary disease. Electronically Signed: Celestina Miller MD at 10:59 EDT , Service support , Chest CTA 01/22/18 10:40 IMPRESSION: No demonstrated pulmonary embolism or arterial dissection. Bilateral dependent atelectasis. Calcified granuloma within left upper lobe. Minimal multifocal tubular bronchiectasis. Accessory azygos lobe. 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 Electronically Signed: Umair Joyce MD at 13:01 EDT , Service support , Wrist X-Ray 01/22/18 15:39 IMPRESSION: Radiocarpal degenerative changes otherwise negative. Electronically Signed: Yong Em MD at 16:32 EDT , Service support , Operations: None Summary of Care Provided: Patient is a 72-year-old gentleman with past medical history cigar for inflammatory bowel disease, diabetes, hypertension chronic hypoxic respiratory failure sleep apnea who presented with progressive shortness of breath an assessment of obesity with acute exacerbation was made admitted to regular nursing floor for further management 1. COPD with acute exacerbation: Patient has been admitted to regular nursing floor where he is currently being managed with bronchodilator treatment in addition to steroids biotics. Please on supplemental oxygen titrated to keep oxygen saturation greater than 90. Patient was assessed for home oxygen prior to being discharged 2. Hypertension-blood pressure controlled, home medications continued with dose adjustment as needed 3. Dyslipidemia-patient is on statin therapy, continued at home dose 4. Diabetes mellitus type 2 did continue with home regimen also placed on Accu-Cheks before meals and at bedtime with sliding scale coverage 5. Rheumatoid arthritis 6. Inflammatory bowel disease: Continue Remicade and balsalazide. 7. Obesity with BMI of 33.3; weight loss advised 8. DVT prophylaxis: Subcu Heparin Discharge Diet: 1800 Calorie Control Diet Home Medications: Medications to take at Discharge Amlodipine/Benazepril [Lotrel 10-40 MG Capsule] 1 capsule PO DAILY 07/20/13 Calcium (Elemental) [Caltrate-600] 600 mg PO DAILY 07/20/13 Duloxetine Hcl [Cymbalta] 30 mg PO BID 07/20/13 Gabapentin [Neurontin] 1,200 mg PO BIDCM 07/20/13 Multivit-Min/FA/Lycopene/Lut [Century Mature Formula Tablet] 1 dose PO DAILY 07/20/13 [place]-3 Fatty Acids/Fish Oil [Fish Oil 1,000 mg Softgel] 1 each PO DAILY 07/20/13 Finasteride [Proscar] 5 mg PO DAILY 03/14/15 Metformin HCl [Glucophage] 1,000 mg PO BIDCM 03/14/15 Balsalazide Disodium 2,250 mg PO BID 11/04/16 Simvastatin [Zocor] 40 mg PO QHS 11/04/16 Chlorthalidone [Hygroton] 50 mg PO DAILY 12/24/16 Infliximab-DYYB [Inflectra] 100 mg IV X1 02/18/17 Esomeprazole Magnesium [Nexium 24Hr] 22.3 mg PO DAILY 04/15/17 Loratadine [Claritin] 10 mg PO QHS 04/15/17 Albuterol Sulfate [Ventolin Hfa] 2 puff INHALATION Q4H PRN 01/22/18 Clonidine HCl [Catapres] 0.2 mg PO BID 01/22/18 Fluticasone/Vilanterol [Breo Ellipta 100-25 Mcg INH] 1 each INHALATION DAILY 01/22/18 Glimepiride [Amaryl] 2 mg PO QHS 01/22/18 Ipratropium/Albuterol Sulfate [Duoneb] 1 vial INHALATION Q4H PRN 01/22/18 Metoprolol Tartrate [Lopressor (beta andrey)] 50 mg PO BID 01/22/18 Doxycycline 100 mg PO BID #14 cap 01/24/18 Guaifenesin Dm [Robitussin Dm] 10 ml PO Q4H #300 ml 01/24/18 Prednisone 10 mg PO UD #30 tab 01/24/18 Following Prescrptions Were Given to Patient: Doxycycline 100 mg PO BID #14 cap Guaifenesin Dm [Robitussin Dm] 10 ml PO Q4H #300 ml Prednisone 10 mg PO UD #30 tab Primary Care Physician: Jayme Harry MD [Primary Care Provider] - Please follow up with your Primary Care Physician in: in 1- 2 weeks Please Follow Up With: Devon Lange MD When: in 5-7 days Disposition: Home Minutes spent on discharge:: 35 Patient Condition:: Stable Medical Necessity - Tobacco Use Smoking Status: Former smoker Meaningful Use Info Meaningful Use Diagnoses (Choose all that apply): None applicable Code Visit Inpatient E AND M: 36783 Disch Hosp 01/24/18 0926 <Electronically signed by Laureano Lima MD> Date Laureano Lima MD Cosigner Signature (if applicable): Date CC: Laureano Lima MD; Jayme Harry MD Signed DISCHARGE INSTRUCTION Observed: 01/24/2018 Status: F Source: DOM 7:59 AM [facility] REPOSITORY [facility] Medical Records Department [address] [place] [address] Instructions for Home/Discharge Instructions 01/24/18 0751 MR#: [id number] Acct: [id number] Name: MEGAN HOLLOWAY Rep #: [id number] : 1945 72 From: Laureano Lima MD PCP: Jayme Harry MD Status: ADM IN - Discharge Diagnoses Current Active Problems: Current Active and Chronic Problems Cough productive of purulent sputum (Acute) Left wrist pain (Acute) Allergies/Adverse Reactions: Allergies aspirin Allergy (Verified 01/22/18 08:55) Swelling morphine Adverse Reaction (Verified 01/22/18 08:55) UNABLE TO URINATE Medications to take at Discharge Amlodipine/Benazepril [Lotrel 10-40 MG Capsule] 1 capsule PO DAILY 07/20/13 Calcium (Elemental) [Caltrate-600] 600 mg PO DAILY 07/20/13 Duloxetine Hcl [Cymbalta] 30 mg PO BID 07/20/13 Gabapentin [Neurontin] 1,200 mg PO BIDCM 07/20/13 Multivit-Min/FA/Lycopene/Lut [Century Mature Formula Tablet] 1 dose PO DAILY 07/20/13 [place]-3 Fatty Acids/Fish Oil [Fish Oil 1,000 mg Softgel] 1 each PO DAILY 07/20/13 Finasteride [Proscar] 5 mg PO DAILY 03/14/15 Metformin HCl [Glucophage] 1,000 mg PO BIDCM 03/14/15 Balsalazide Disodium 2,250 mg PO BID 11/04/16 Simvastatin [Zocor] 40 mg PO QHS 11/04/16 Chlorthalidone [Hygroton] 50 mg PO DAILY 12/24/16 Infliximab-DYYB [Inflectra] 100 mg IV X1 02/18/17 Esomeprazole Magnesium [Nexium 24Hr] 22.3 mg PO DAILY 04/15/17 Loratadine [Claritin] 10 mg PO QHS 04/15/17 Albuterol Sulfate [Ventolin Hfa] 2 puff INHALATION Q4H PRN 01/22/18 Clonidine HCl [Catapres] 0.2 mg PO BID 01/22/18 Fluticasone/Vilanterol [Breo Ellipta 100-25 Mcg INH] 1 each INHALATION DAILY 01/22/18 Glimepiride [Amaryl] 2 mg PO QHS 01/22/18 Ipratropium/Albuterol Sulfate [Duoneb] 1 vial INHALATION Q4H PRN 01/22/18 Metoprolol Tartrate [Lopressor (beta andrey)] 50 mg PO BID 01/22/18 Doxycycline 100 mg PO BID #14 cap 01/24/18 Guaifenesin Dm [Robitussin Dm] 10 ml PO Q4H #300 ml 01/24/18 Prednisone 10 mg PO UD #30 tab 01/24/18 The following prescriptions were given: Doxycycline 100 mg PO BID #14 cap Guaifenesin Dm [Robitussin Dm] 10 ml PO Q4H #300 ml Prednisone 10 mg PO UD #30 tab Primary Care Physician: Jayme Harry MD [Primary Care Provider] - Please follow up with your Primary Care Physician in: in 1- 2 weeks Please Follow Up With: Devon Lange MD When: in 5-7 days Proposed Discharge Date: 01/24/18 01/24/18 0759 <Electronically signed by Laureano Lima MD> Date Laureano Lima MD CC: Ward Martin DO; Jayme Harry MD VENOUS DUPLEX UPPER Observed: 01/24/2018 Status: F Source: [facility] 7:42 AM [facility] REPOSITORY [facility] Cardiovascular Services [address] [facility] [place] [address] Venous Duplex US, Unilateral 01/22/18 1338 MR#: [id number] Acct: [id number] Name: JEWELMEGAN Derrick Rep #: [id number] : 1945 72 From: Booker Boswell MD Attending Dr: Laureano Lima MD Status: ADM IN Ordering Dr: Audrey Smith DO Date: 01/22/18 Location: [facility] Sex: M C Admitted: 01/22/18 Reason For Study: PAIN Left Proximal Left jugular vein is spontaneous, widely patent, phasic, with no intraluminal echogenicity noted. Left subclavian vein is spontaneous, widely patent, phasic, with no intraluminal echogenicity noted. Left Arm Left axillary vein is spontaneous, patent, phasic, competent, compressible and demonstrates augmentation. Left brachial vein is compressible. Left cephalic vein is compressible. Left basilic vein is compressible. Left Lower Arm Left radial vein is compressible. Left ulnar vein is compressible. < Interpretation Summary Deep veins of the left upper extremity are patent and compressible segmentally. There is no evidence of deep vein thrombosis. The superficial veins of the left upper extremity, the basilic and cephalic veins, are patent and compressible. There is no evidence of left upper extremity superficial thrombophlebitis involving the veins imaged. Ordering Physician: Audrey Smith Referring Physician: JAYME HARRY Performed By: Karen Pierre, JOE, RVT 01/24/18 0741 Date Booker Boswell MD CC: Laureano Lima MD; Jayme Harry MD; Audrey Smith DO Date Dictated: 01/22/18 1338 Date Transcribed: 01/24/18740 Multiple Cut Off Saw Operator: Signed BEDSIDE GLUCOSE Collected: 01/24/2018 Status: F Source: DOM 6:44 AM [facility] REPOSITORY TYPE CODE TESTS RESULT OUT OF REFERENCE UNITS RANGE LAB L501.080 70-110 mg/dL High BEDSIDE GLU 197 Result Comment: MANAGEMENT OF PATIENT CARE PER NURSING PROTOCOL Performed By: #### L501.080 #### [facility] Point of Care [address] [place] [address] BEDSIDE GLUCOSE Collected: 01/23/2018 Status: F Source: DOM 9:24 PM [facility] REPOSITORY TYPE CODE TESTS RESULT OUT OF REFERENCE UNITS RANGE LAB L501.080 70-110 mg/dL High BEDSIDE GLU 308 Result Comment: MANAGEMENT OF PATIENT CARE PER NURSING PROTOCOL Performed By: #### L501.080 #### [facility] Point of Care [address] [place] [address] BEDSIDE GLUCOSE Collected: 01/23/2018 Status: F Source: DOM 4:39 PM [facility] REPOSITORY TYPE CODE TESTS RESULT OUT OF REFERENCE UNITS RANGE LAB L501.080 70-110 mg/dL High BEDSIDE GLU 219 Result Comment: MANAGEMENT OF PATIENT CARE PER NURSING PROTOCOL Performed By: #### L501.080 #### [facility] Point of Care [address] [address] BEDSIDE GLUCOSE Collected: 01/23/2018 Status: F Source: DOM 11:53 AM [facility] REPOSITORY TYPE CODE TESTS RESULT OUT OF REFERENCE UNITS RANGE LAB L501.080 70-110 mg/dL High BEDSIDE GLU 212 Result Comment: MANAGEMENT OF PATIENT CARE PER NURSING PROTOCOL Performed By: #### L501.080 #### [facility] Point of Care [address] [place] [address] CONSULTATION Observed: 01/23/2018 Status: F Source: DOM 7:02 AM [facility] REPOSITORY [facility] Medical Records Department [address] [place] [address] [place] [address] Consultation 01/23/18 0656 MR#: [id number] Acct: [id number] Name: JEWELMEGAN Derrick Rep #: [id number] : 1945 72 From: Ward Martin DO PCP: Jayme Harry MD Status: ADM IN Y [place] [facility] [id number] Reason for Consult Date of Consultation: 01/23/18 Reason for Consultation: Left wrist pain History of Present Illness: The patient is a 72 year old M who is a patient of Dr. Poncho Miller's practice. Patient was having some difficulty breathing yesterday and having severe pain in his wrist that Tylenol was not alleviating. Because of this combination of issues he did present to the emergency department. They were unable to get his pain under control of his wrist. He has had pain in his wrist for approximately 6 days. He does have a history of rheumatoid arthritis and has been treated on Remicade for approximately 10 years. He denies any trauma or falling. He does have a pulmonary doctor and has had exacerbation of COPD which she was admitted for. He uses 2 L of oxygen at night as well as a CPAP that he is used for approximately 1 year. Patient was admitted to the hospitalist service and orthopedics was subsequently consulted for this wrist pain. He states that he has had essentially complete resolution of his symptoms this morning he does have some swelling in the hand and fingers but otherwise he is doing quite well Past Medical History Past Medical History (Chronic Problems): Chronic Problems DM2 (diabetes mellitus, type 2) (Chronic) Inflammatory bowel disease (Chronic) Benign essential HTN (Chronic) Rheumatoid aortitis (Chronic) Allergies aspirin Allergy (Verified 01/22/18 08:55) Swelling morphine Adverse Reaction (Verified 01/22/18 08:55) UNABLE TO URINATE Home Medications: Ambulatory Orders Medication Instructions Recorded Amlodipine/Benazepril [Lotrel 1 capsule PO DAILY 07/20/13 10-40 MG Capsule] Calcium (Elemental) [Caltrate-600] 600 mg PO DAILY 07/20/13 Surgical History: - - Fusion of the cervical spine, lumbar spine surgery, bilateral knee replacements, partial colon resection due to diverticulitis Psychiatric History: No pertinent psych hx Lives: Spouse/ Significant Other Smoking Status: Former smoker Alcohol: None Drugs: None - *Family History Maternal History Items: Heart Disease Paternal History Items: COPD, Heart Disease Review of Systems Constitutional: Denies: Chills, Fever, Weight Change HEENT: Denies: Head Aches, Sinus Congestion, Sinus Drainage Cardiovascular: Denies: Chest Pain, Palpitations Respiratory: Reports: Cough, Shortness of Breath Gastrointestinal: Denies: Abdominal Pain, Nausea, Vomiting Genitourinary: Denies: Dysuria Musculoskeletal: Reports: - - Per history of present illness Skin: Denies: Rash, Wounds Neurological: Denies: Numbness, Tingling, Focal weakness Psychiatric: Denies: Anxiety, Depression, Homicidal Ideations, Suicidal Ideations Patient Problems: Active and Suspected Problems Cough productive of purulent sputum (Acute) Left wrist pain (Acute) - Physical Exam General: Alert, Oriented x3, Cooperative HEENT: Atraumatic, PERRLA, EOMI, Normocephalic Neck: Supple, No JVD Cardiovascular: Regular rate Abdomen: Soft, Non Tender Skin: No rashes, No breakdown Musculoskeletal: - - Focused examination patient's left wrist reveals him to have some minimal swelling to the wrist. He has pain-free active range of motion of the wrist. There is some mild swelling into his fingers. Extension is 45 flexion and 60 he lacks approximately 5% of full composite fist formation secondary to some swelling he is nontender to palpation at the wrist. Full elbow range of motion is noted. Radial pulses 2+. Neurovascularly he is intact. Neurological: Cranial nerves II-XII grossly intact Psych/Mental Status: Normal Affect Vital Signs Temp Pulse Resp BP Pulse Ox 97.9 F 91 13 175/102 H 97 01/23/18 03:00 01/23/18 03:30 01/23/18 03:30 01/23/18 03:00 01/23/18 03:30 Oxygen Flow Rate (L/min) 3 Oxygen Delivery Method Nasal Cannula Weight: 212 lb 11.937 oz Body Mass Index (BMI) 33.3 POC Glucose POC Glucose 237 H 295 H 168 H Assessment/Plan Active and Suspected Problems Cough productive of purulent sputum (Acute) Left wrist pain (Acute) Left wrist pain History of rheumatoid arthritis Left wrist osteoarthritis I personally reviewed patient's x-rays. These are negative for acute abnormality. Patient does have positive ulnar variance and mild to moderate osteoarthritic changes at the radiocarpal joint. He is currently not having any issue and I suspect that the IV Solu-Medrol has decreased the inflammation in his wrist which could be associated to his history of rheumatoid arthritis or his osteoarthritis. No further intervention is necessary for the rest and patient is certainly welcome to follow with in the future for further evaluation. Orthopedically stable. Thank you for allowing me to assist in the care of this patient 01/23/18 0702 <Electronically signed by Ward Martin DO> Date Ward Martin DO Cosigner Signature (if applicable): Date CC: Ward Martin DO; Jayme Harry MD Signed BEDSIDE GLUCOSE Collected: 01/23/2018 Status: F Source: DOM 6:21 AM [facility] REPOSITORY TYPE CODE TESTS RESULT OUT OF REFERENCE UNITS RANGE LAB L501.080 70-110 mg/dL High BEDSIDE GLU 237 Result Comment: MANAGEMENT OF PATIENT CARE PER NURSING PROTOCOL Performed By: #### L501.080 #### [facility] Point of Care [address] [place] [address] BEDSIDE GLUCOSE Collected: 01/22/2018 Status: F Source: DOM 9:16 PM [facility] REPOSITORY TYPE CODE TESTS RESULT OUT OF REFERENCE UNITS RANGE LAB L501.080 70-110 mg/dL High BEDSIDE GLU 295 Result Comment: MANAGEMENT OF PATIENT CARE PER NURSING PROTOCOL Performed By: #### L501.080 #### [facility] Point of Care [address] [place] [address] BEDSIDE GLUCOSE Collected: 01/22/2018 Status: F Source: DOM 5:02 PM [facility] REPOSITORY TYPE CODE TESTS RESULT OUT OF REFERENCE UNITS RANGE LAB L501.080 70-110 mg/dL High BEDSIDE GLU 168 Result Comment: MANAGEMENT OF PATIENT CARE PER NURSING PROTOCOL Performed By: #### L501.080 #### [facility] Point of Care [address] [place] [address] HISTORY AND PHYSICAL Observed: 01/22/2018 Status: F Source: LIVONIA EXAM 4:15 PM [facility] REPOSITORY [facility] Medical Records Department [address] [place] [address] History and Physical 01/22/18 1556 MR#: [id number] Acct: [id number] Name: MEGAN HOLLOWAY Derrick Rep #: [id number] : 1945 72 From: Drake Mason DO PCP: Jayme Harry MD Status: ADM IN Location: [facility] [id number] Problem List (1) Cough productive of purulent sputum Status: Acute (2) Left wrist pain Status: Acute History of Present Illness Date of Admission: 01/22/18 Chief Complaint: Cough with yellow sputum production, left wrist pain The patient is a 72 year old M who was seen in the emergency room at [facility] with a chief complaint of a cough productive of yellow sputum 1 week, patient was placed on Levaquin as an outpatient and he has been taking it for approximately 6 days, he was on 5 days of prednisone 40 mg daily also. He also complained of severe left wrist pain for the last 5 days. Patient has a history of rheumatoid arthritis and has been treated for approximately 10 years, he currently is on Remicade. Patient denies any trauma of the wrist, he denies any neck pain, patient denies any fever, chills, or hemoptysis. Patient is currently seeing a pulmonary doctor and is on CPAP, uses oxygen at night at 2 L along with his CPAP. He states he has been on CPAP for approximately a year. Evaluation in the emergency room revealed the patient to have expiratory wheezes bilaterally, chest x-ray showed no acute infiltrate, CTA of the chest was performed which showed bilateral lower lobe atelectasis along with multifocal areas of bronchiectasis which were minimal. X-rays of the patient's left wrist were not obtained by the emergency room physician Examination of the patient's wrist revealed to be tender to palpation on the left, I did not appreciate marked swelling of the left wrist. Patient was given an aerosol treatment by the emergency room physician and IV Solu-Medrol, IV pain medication was given to the patient for his left wrist pain but he continued to have pain in his left wrist despite being given fentanyl and Dilaudid. Patient will be admitted for exacerbation of COPD and left wrist pain, I have called Ward Martin to consult on the patient's wrist pain, I ordered wrist x-rays on him, he will be placed on IV Solu-Medrol and aerosol treatments. Patient requires oxygen to maintain his pulse ox above 90 at this time Past Medical History Past Medical History (Chronic Problems): Chronic Problems DM2 (diabetes mellitus, type 2) (Chronic) Inflammatory bowel disease (Chronic) Benign essential HTN (Chronic) Rheumatoid aortitis (Chronic) Allergies aspirin Allergy (Verified 01/22/18 08:55) Swelling morphine Adverse Reaction (Verified 01/22/18 08:55) UNABLE TO URINATE Home Medications: Ambulatory Orders Medication Instructions Recorded Amlodipine/Benazepril [Lotrel 1 capsule PO DAILY 07/20/13 Surgical History: - - Fusion of the cervical spine, lumbar spine surgery, bilateral knee replacements, partial colon resection due to diverticulitis Psychiatric History: No pertinent psych hx Lives: Spouse/ Significant Other Smoking Status: Former smoker Alcohol: None Drugs: None - *Family History Maternal History Items: Heart Disease Paternal History Items: COPD, Heart Disease Review of Systems Constitutional: Denies: Anorexia, Chills, Fever, Night Sweats, Malaise, Weakness, Weight Change, Fatigue Eyes: Denies: Blurred vision, Cataracts, Conjunctivae Inflammation, Double vision, Pain HEENT: Denies: Difficulty Swallowing, Dysphasia, Ear Pain, Eye Pain, Head Aches, Hearing Changes, Nasal bleeding, Nasal Congestion Cardiovascular: Denies: Chest Pain, Claudication, Chest Pressure, Chest Tightness, Edema, Heaviness, Palpitations, Paroxysmal Noc. Dyspnea, Syncope Respiratory: Reports: Cough, Sputum production, Wheezing. Denies: Hemoptysis, Shortness of breath at rest, Shortness of breath upon exertion Gastrointestinal: Denies: Abdominal Pain, Constipation, Diarrhea, Hematemesis, Hematochezia, Nausea, Melena, Vomiting Genitourinary: Denies: Dysuria, Frequency, Hematuria, Hesitancy, Nocturia, Retention, Urgency Musculoskeletal: Reports: Hand Pain - Left Hand and wrist pain, Joint Pain - Left wrist pain, Joint Tenderness - Left wrist is tender to palpation. Denies: Foot Pain, Joint stiffness, Joint swelling, Leg Pain, Shoulder Pain Skin: Denies: Dryness, Jaundice, Pruritis, Rash Neurological: Denies: Balance problems, Blurred vision, Double vision, Slurred speech, Difficulty swallowing, Focal weakness, Headaches, Incoordination, Numbness, Tingling Psychiatric: Denies: Anxiety, Depression, Homicidal Ideations, Suicidal Ideations Endocrine: Denies: Change in Body Habitus, Heat/ Cold Intolerance, Polydipsia, Polyuria Hematologic/ Lymphatic: Denies: Adenopathy, Anemia, Easy Bruising, Easy Bleeding, Petechiae, Purpura VTE Information - Inpt Only VTE Present on Admission: No VTE Mechan Device Prophylaxis: None VTE Pharm Prophylaxis ordered?: Yes Patient Problems: Active and Suspected Problems Cough productive of purulent sputum (Acute) Left wrist pain (Acute) - Physical Exam General: Alert, Oriented x3, Cooperative, No apparent distress, Well developed, Well nourished HEENT: Atraumatic, PERRLA, EOMI, Normocephalic Oral: Moist Mucosa Neck: Supple, No JVD, Negative Carotid Bruits, No Nuchal Rigidity, Trachea Midline, Thyroid Normal Size and Texture Lungs: Normal air movement, No rhonchi, Rales - There are mild inspiratory rales at the bases bilaterally, Wheezes - Patient has diffuse expiratory wheezes bilaterally Cardiovascular: Regular rate, Regular Rhythm, Normal S1, Normal S2, No murmurs, No Ectopic Activity, PMI Normal, No rub noted, No Gallop Abdomen: Bowel Sounds Present, Soft, Non Tender, Non-Distended, No hernias noted Extremities: No clubbing, No cyanosis, No edema, Capillary Refill Less than 3 Seconds, Tenderness - Patient has tenderness to palpation over the left wrist and proximal hand area Skin: No rashes, No breakdown Musculoskeletal: No Muscle Wasting, Tenderness - tenderness over the left wrist and proximal hand area to palpation Neurological: Cranial nerves II-XII grossly intact, Neuro grossly intact, Sensory exam intact to light touch and pain, Coordination normal Psych/Mental Status: Normal Affect, Appropriate, Alert and oriented to time, place, person, mood and affect Vital Signs Temp Pulse Resp BP Pulse Ox 98.7 F 76 16 145/86 H 97 01/22/18 14:18 01/22/18 14:18 01/22/18 14:18 01/22/18 14:18 01/22/18 14:18 Assessment/Plan Active and Suspected Problems Cough productive of purulent sputum (Acute) Left wrist pain (Acute) 1 acute exacerbation of COPD-patient will be admitted to [facility], IV Solu-Medrol will be given, patient will be kept on oral Levaquin, oxygen saturation will be monitored, aerosol treatments will be given, respiratory panel will be obtained #2 left wrist pain-probably secondary to flareup of rheumatoid disease, patient's left wrist will be x-ray, he will be seen by orthopedic surgery-I contacted Dr. Ward Martin for consultation, patient will be given IV pain meds as well as IV corticosteroids #3 rheumatoid arthritis #4 obstructive sleep apnea-patient uses BiPAP at night #5 hypoxia-probably secondary to #1, patient's O2 sat will be monitored #6 ulcerative colitis-patient takes chronic medication for this, this will be continued #7 type 2 diabetes-sliding scale insulin will be administered per protocol, patient will need to be off his metformin due to his CTA of his chest Code Visit Inpatient E AND M: [id number] Init Hosp L3 01/22/18 1615 <Electronically signed by Drake Mason DO> Date Drake Mason DO Cosigner Signature: Date (if applicable) CC: Drake Mason DO; Jayme Harry MD Signed WRIST MIN 3 VIEWS Observed: 01/22/2018 Status: F Source: L[place]ON[place] 3:40 PM [facility] REPOSITORY [facility] Imaging Services [address] [place] [address] Wrist min 3 Views MR#: [id number] Acct: [id number] Name: JEWELMEGAN D Rep #: [id number] : 1945 M 72 From: Yong Em MD PCP: Jayme Harry MD Status: ADM IN Study: Wrist min 3 Views Date of Exam: 01/22/18 Exam# [id number] Ordering Dr: Drake Mason DO STUDY: X-RAY - LEFT WRIST REASON FOR EXAM: Male, 72 years old. Right wrist pain TECHNIQUE: 3 view(s) of the wrist were obtained. COMPARISON: None. FINDINGS: Normal visualized distal radius and ulna. There is mild degenerative arthrosis of the radiocarpal articulation. Normal distal radioulnar articulation. Normal carpal bones. Normal carpal articulations. Normal carpometacarpal articulation of the thumb. Normal second through fifth carpometacarpal articulations. Large osteophytes seen off the distal third metacarpal, otherwise normal visualized metacarpal bones. The soft tissue structures are unremarkable except for 2 mm metal density in the soft tissues of the dorsal distal forearm. . RAD/Wrist min 3 Views IMPRESSION: Radiocarpal degenerative changes otherwise negative. Electronically Signed: Yong Em MD at 16:32 EDT , Service support , CC: Drake Mason DO; Jayme Harry MD Multiple Cut Off Saw Operator: Signed Observed: 01/22/2018 Status: F Source: [place] RESPIRATORY PANEL 3:05 PM [facility] MOLECULAR REPOSITORY RP PANEL ADENOVIRUS Not Detected HUMAN METAPHNEUMO Not Detected INFLUENZA A Not Detected INFLUENZA A (SUBTYPE H1) Not Detected INFLUENZA A (SUBTYPE H3) Not Detected INFLUENZA B Not Detected PARAINFLUENZA 1 Not Detected PARAINFLUENZA 2 Not Detected PARAINFLUENZA 3 Not Detected PARAINFLUENZA 4 Not Detected RHINOVIRUS Not Detected RSV A Not Detected RSV B Not Detected NAAT METHOD Testing was performed using nucleic acid amplification Performed By: #### M100.638 #### [facility] [address] [place] [address]. [place], [address] EMERGENCY DEPARTMENT Observed: 01/22/2018 Status: F Source: [place] SUMMARY 2:16 PM [facility] REPOSITORY [facility] Medical Records Department [address] [place] [address] Emergency Department Summary 01/22/18 1409 MR#: [id number] Acct: [id number] Name: MEGAN HOLLOWAY Derrick Rep #: [id number] : 1945 72 From: Audrey Smith DO PCP: Jayme Harry MD Status: REG ER - ER Visit Summary Date of Service: 01/22/18 Chief Complaint: [Shortness of breath and chest pain] History of Present Illness: The patient is a 72 M [presents to the emergency department chief complaint of shortness of breath that he has had ongoing for 2-3 months. 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 Patient also developed discomfort in his left arm since yesterday. Patient's had some chest soreness. Patient has been coughing which is been a chronic issue at times coughing up yellow phlegm time whitish. Patient states that he just recently finished 4 day course of his own. Patient denies any fevers at home. Patient states she has had a cough for over 3 months.] Physical Examination: [HEENT-PERRLA, EOMI. Cranial nerves II through XII grossly intact. TMs clear. Mucous membranes moist. No adenopathy. Cardiovascular-regular rate and rhythm without murmur or ectopy Lungs-aeration bilaterally. Patient has expiratory wheezes bilaterally. No accessory muscle use or retractions. Abdomen-normoactive bowel sounds, soft, nontender, no rebound or rigidity, no peritoneal signs. 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 CBC with differential showed a white count of 7.6, hemoglobin 13.8, hematocrit 42, platelets 211. Chemistries unremarkable. Troponin was less than 0.02. BNP was 49.6. CTA of the chest showed no evidence for PE or dissection venous duplex of his left arm revealed no DVT.] Emergency Department Course and Treatment: [She was medicated with fentanyl and Dilaudid and continues to complain of pain in his left wrist and hand.] Patient was given Solu-Medrol 125 mill grams IV. Patient was given a DuoNeb aerosol. Treatment Plan: [Admit.] Disposition: [Admit] Impression: [Intractable left arm pain COPD exacerbation] This note was generated with [employer] dictation software. It may contain incorrect words, spelling, and punctuation that were not noted in review of the chart prior to signing ED Disposition - Plan for ED Patient: Chief Complaint: Shortness of Breath Referrals: Jayme Harry MD [Primary Care Provider] - What to do if you have Problems For any increased pain, shortness of breath, bleeding, nausea or vomiting, chest pain, or any unexpected problems, contact your Primary Care Provider. Call [facility] ([phone]) or report to the closest Emergency Room. Call 911 if necessary. 01/22/18 1416 <Electronically signed by Audrey Smith DO> Date Audrey Smith DO Cosigner Signature (If Indicated): Date CC: Jayme Harry MD CTA CHEST W/WO Observed: 01/22/2018 Status: F Source: [place] CONTRAST 10:41 AM [facility] REPOSITORY [facility] Imaging Services [address] [place] [address] CTA Chest W/WO Contrast MR#: [id number] Acct: [id number] Name: MEGAN HOLLOWAY Rep #: [id number] : 1945 M 72 From: Umair Joyce MD PCP: Jayme Harry MD Status: REG ER Study: CTA Chest W/WO Contrast Date of Exam: 01/22/18 Exam# [id number] Ordering Dr: Audrey Smith DO STUDY: CTA CHEST REASON FOR EXAM: Male, 72 years old. Dyspnea and left arm pain. RADIATION DOSAGE (If Supplied By Facility): CTDIvol = ( 19.40 ) mGy, DLP = ( 676.65 ) mGycm TECHNIQUE: The examination was performed with the intravenous administration of 100 ml of Isovue 370 contrast material. Post-processing of the angiographic images was performed, with multiplanar reformation and 3D reconstruction. Individualized dose optimization techniques were used for this CT. COMPARISON: None. FINDINGS: Normal enhancement of the main pulmonary artery and right and left pulmonary arteries. Normal enhancement of the bilateral peripheral pulmonary arteries. There is no demonstrated pulmonary embolism. Normal thoracic aorta and visualized great vessels except for multifocal calcified plaque. There is no demonstrated aortic dissection. Normal heart and pericardium. Normal mediastinum. Normal hilar regions. Normal visualized trachea and bronchi. The lungs are well expanded. There is bilateral dependent atelectasis, a subcentimeter calcified granuloma within the anterior left upper lobe and minimal tubular bronchiectasis diffusely. There is an accessory azygous lobe. There is no pleural effusion. There is no pneumothorax. Normal chest wall structures. Normal osseous structures. There is a 2.5 cm left adrenal mass measuring fat density consistent with adenolipoma. CT/CTA Chest W/WO Contrast IMPRESSION: No demonstrated pulmonary embolism or arterial dissection. Bilateral dependent atelectasis. Calcified granuloma within left upper lobe. Minimal multifocal tubular bronchiectasis. Accessory azygos lobe. 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 Electronically Signed: Umair Joyce MD at 13:01 EDT , Service support , CC: Jayme Harry MD; Audrey Smith DO Multiple Cut Off Saw Operator: Signed CHEST 1 VIEW Observed: 01/22/2018 Status: F Source: LIVONIA (PORTABLE) 9:24 AM [facility] REPOSITORY [facility] Imaging Services [address] [place] [address] Chest 1 View (Portable) MR#: [id number] Acct: [id number] Name: MEGAN HOLLOWAY Rep #: [id number] : 1945 M 72 From: Celestina Miller MD PCP: Jayme Harry MD Status: REG ER Study: Chest 1 View (Portable) Date of Exam: 01/22/18 Exam# [id number] Ordering Dr: Audrey Smith DO STUDY: X-RAY CHEST REASON FOR EXAM: Male, 72 years old. Cough. TECHNIQUE: Single AP portable view of the chest. COMPARISON: December 05, 2017. FINDINGS: Cardiac monitoring leads are present. Lungs are expanded. There is mild interstitial thickening present in both lungs. There is no demonstrated pleural abnormality. There is borderline cardiomegaly. There are calcified mediastinal and hilar lymph nodes. Normal visualized pulmonary arteries. There is atherosclerotic calcification of the aortic arch with tortuosity. There are diffuse degenerative changes of the visualized thoracic spine. There are degenerative changes of both shoulders. Patient has had previous cervical spine surgery. There is no demonstrated abnormality of the visualized soft tissue structures of the upper abdomen. RAD/Chest 1 View (Portable) IMPRESSION: No radiographic evidence of acute cardiopulmonary disease. Electronically Signed: Celestina Miller MD at 10:59 EDT , Service support , CC: Jayme Harry MD; Audrey Smith DO Multiple Cut Off Saw Operator: Signed CBC W/DIFF, AUTOMATED Collected: 01/22/2018 Status: F Source: DOM 9:18 AM [facility] REPOSITORY TYPE CODE TESTS RESULT OUT OF RANGE REFERENCE UNITS LAB L100.1000 4.4-11.0 K/mm3 Normal WBC 7.6 LAB L100.1200 4.6-6.2 M/mm3 Normal RBC 4.64 LAB L100.1300 13.0-16.5 g/dl Normal HGB 13.8 LAB L100.1400 40-54 % Normal HCT 41.6 LAB L100.1500 80-94 fL Normal MCV 89.7 LAB L100.1600 27.0-32.0 pg Normal MCH 29.7 LAB L100.1700 32-36 g/gl Normal MCHC 33.2 LAB L100.1810 11.6-14.6 % High RDW CV 14.7 LAB L100.1820 35.1-43.9 fl High RDW SD 47.6 LAB L100.1900 150-450 K/mm3 Normal PLT 211 LAB L100.2000 6.2-12.0 fl Normal MPV 10.7 LAB L100.2100 47-70 % Normal NEUT% 59.2 LAB L100.2200 19-41 % Normal LY% 29.5 LAB L100.2300 0-10 % Normal MONO% 8.3 LAB L100.2400 0-5 % Normal EO% 2.8 LAB L100.2500 0-1 % Normal BASO% 0.1 LAB L100.2550 0.0-0.9 % Normal IM GRAN % 0.100 Result Comment: IG% - Immature Granulocytes (promyelocytes, myelocytes and metamyelocytes) > 1% indicates that a LEFT SHIFT is Present. LAB L100.2620 2.0-7.7 X10 3/uL Normal Absolute Neut 4.5 LAB L100.2720 0.83-4.51 X10 3/ul Normal Absolute Lymph 2.24 Performed By: #### L100.0100 #### [facility] [address] [place], [place], [address] BASIC METABOLIC Collected: 01/22/2018 Status: F Source: DOM PROFILE (BMP) 9:18 AM [facility] REPOSITORY Order Comment: 'TROP' Serial specimen #1, #2, #3, or #4: 1 TYPE CODE TESTS RESULT OUT OF RANGE REFERENCE UNITS LAB L501.0100 74-106 mg/dL High GLU 218 Result Comment: Glucose result greater than or equal to 200 mg/dL suggests DIABETES MELLITUS per A.D.A. criteria. Please note revised GLUCOSE reference range effective 2017. LAB L501.1000 7-18 mg/dL High BUN 20 LAB L501.1100 0.70-1.30 mg/dL High CREAT,SERUM 1.33 Result Comment: The validity of the calculated GFR AND GFRAA in patients over 70 years has not been determined. Clinical correlation is essential. LAB L501.1110 >60 mL/min Low EST GFR 56 Result Comment: Non- GFR Calc LAB L501.1115 >60 mL/min Normal EST GFR - AA 68 Result Comment: GFR Calc LAB L501.1255 ml/min Normal Estimated CRCL 46.25 LAB L501.1300 10-20 RATIO Normal BUN/CRE 15.0 LAB L501.2200 8.5-10 mg/dL Normal .1 CA 9.1 LAB L501.5300 136-14 mmol/L Normal 5 NA 138 LAB L501.5600 3.5-5. mmol/L Normal 1 K 3.6 LAB L501.5900 98-107 mmol/L Normal CL 103 LAB L501.6100 21.0-3 mmol/L Normal 2.0 CO2 27.0 LAB L501.6200 5-15 Normal GAP 8 Performed By: #### L500.2500, L501.4010 #### [facility] [address] [place], [place], [address] TROPONIN-I Collected: 01/22/2018 Status: F Source: DOM 9:18 AM [facility] REPOSITORY Order Comment: 'TROP' Serial specimen #1, #2, #3, or #4: 1 TYPE CODE TESTS RESULT OUT OF RANGE REFERENCE UNITS LAB L501.4010 <0.06 ng/mL Normal < 0.02 TROPONIN-I Result Comment: TROPONIN-I EXPECTED VALUES <0.05 NEGATIVE 0.06 - 0.59 AT RISK OF UT > OR = 0.60 SUGGEST UT Performed By: #### L500.2500, L501.4010 #### [facility] [address] [place], [address] BNP,B-TYPE NATRIURETIC Collected: 01/22/2018 Status: F Source: DOM PEPTIDE 9:18 AM [facility] REPOSITORY TYPE CODE TESTS RESULT OUT OF RANGE REFERENCE UNITS LAB L503.6620 0-100 pg/mL Normal B-TYPE 49.6 CORRINA PEP Performed By: #### L503.6620 #### [facility] [address] [place], [address] D-DIMER QUANTITATIVE Collected: 01/22/2018 Status: F Source: DOM (DVT/PE) 9:10 AM [facility] REPOSITORY Order Comment: CRITICAL VALUE VERIFIED. CALLED TO [facility] 01/22/18 1038 Kaye Alcantara. RESULTS READ BACK BY same . TYPE CODE TESTS RESULT OUT OF RANGE REFERENCE UNITS LAB L300.8000 0.27-0.49 FEU/ug/m High alert D-DIMER 0.90 QUANT Result Comment: D-Dimer ELEVATED (>0.49): Additional studies and clinical assessments are indicated to conclude diagnosis of: Deep Vein Thrombosis (DVT) or Pulmonary Embolism (PE) Performed By: #### L300.8000 #### [facility] [address] [place], [place], [address] CHEST PA AND LATERAL Observed: 12/05/2017 Status: F Source: DOM 11:13 AM [facility] REPOSITORY [facility] Imaging Services [address] [place] [address] Chest PA and Lateral MR#: [id number] Acct: [id number] Name: MEGAN HOLLOWAY Rep #: [id number] : 1945 M 72 From: Eligio King MD PCP: Jayme Harry MD Status: REG CLI Study: Chest PA and Lateral Date of Exam: 12/05/17 Exam# [id number] Ordering Dr: Jayme Harry MD STUDY: X-RAY CHEST REASON FOR EXAM: Male, 72 years old. Cough. TECHNIQUE: Frontal and lateral views of the chest. COMPARISON: 11/04/2016 and 10/24/2017. CTA chest 11/04/2016. FINDINGS: The lungs are clear and expanded. There is no demonstrated pleural abnormality. Normal size heart. Right superior mediastinal widening is seen to be due to vascular tortuosity on the CTA chest. Otherwise normal mediastinum and corina. Normal visualized pulmonary arteries. Normal visualized aortic arch and descending thoracic aorta. There are diffuse degenerative changes of the visualized thoracic spine. Normal visualized ribs, clavicles, and shoulders. There is no demonstrated abnormality of the visualized soft tissue structures of the upper abdomen. RAD/Chest PA and Lateral IMPRESSION: No evidence for acute cardiopulmonary pathology. Electronically Signed: Eligio King MD at 3:36 EST , Service support , CC: Jayme Harry MD Multiple Cut Off Saw Operator: Signed VENOUS DUPLEX LOWER Observed: 11/27/2017 Status: F Source: LIVONIA EXTREMITY 8:23 PM [facility] REPOSITORY [facility] Cardiovascular Services [address] [place] [address] Venous Duplex - Aleksander Extrem 11/27/17 1358 MR#: [id number] Acct: [id number] Name: MEGAN HOLLOWAY Rep #: [id number] : 1945 72 From: Booker Boswell MD Attending Dr: Devon Lange MD Status: REG CLI Ordering Dr: Devon Lange MD Date: 11/27/17 Location: CVS Sex: M C Admitted: Reason For Study: EDEMA RIGHT LEFT GSV is normal. GSV is normal. CFV is compressible, spontaneous, phasic, CFV is compressible, spontaneous, phasic, competent and demonstrates normal competent, and demonstrates normal augmentation. augmentation. FV is compressible, spontaneous, phasic, FV is compressible, spontaneous, phasic, competent and demonstrates normal competent and demonstrates normal augmentation. augmentation. POP V is compressible, spontaneous, phasic, POP V is compressible, spontaneous, phasic, competent and demonstrates normal competent and demonstrates normal augmentation. augmentation. T/P Trunk is compressible. T/P Trunk is compressible. PTV is compressible. PTV is compressible. RT PerV is compressible. LT PerV is compressible. Procedure Exam performed in department. The exam was diagnostic. A preliminary report was called and/or faxed to DR. Lange @ [phone] @ 2:30 pm. Interpretation Summary Deep veins of the lower extremities are bilaterally patent and compressible segmentally. There is no evidence of deep vein thrombosis on either side. Valvular competence appears intact within the proximal deep venous systems bilaterally. The greater saphenous veins appear bilaterally patent and compressible segmentally. Ordering Physician: Devon Lange Referring Physician: Jayme Harry Performed By: Terri Butler, RDCS, RVT 11/27/172021 Date Booker Boswell MD CC: Jayme Harry MD; Devon Lange MD Date Dictated: 11/27/17 1358 Date Transcribed: 11/27/172021 Multiple Cut Off Saw Operator: Signed BNP,B-TYPE NATRIURETIC Collected: 11/26/2017 Status: F Source: DOM PEPTIDE 7:33 AM [facility] REPOSITORY TYPE CODE TESTS RESULT OUT OF RANGE REFERENCE UNITS LAB L503.6620 0-100 pg/mL Normal B-TYPE 31.1 CORRINA PEP Performed By: #### L503.6620 #### [facility] [address] [place], [address] D-DIMER QUANTITATIVE Collected: 11/26/2017 Status: F Source: DOM (DVT/PE) 7:33 AM [facility] REPOSITORY Order Comment: CRITICAL VALUE VERIFIED. CALLED TO [facility] 11/26/17 1023 Kinza Fletcher. RESULTS READ BACK BY [facility] . TYPE CODE TESTS RESULT OUT OF RANGE REFERENCE UNITS LAB L300.8000 0.27-0.49 FEU/ug/m High alert D-DIMER 0.60 QUANT Result Comment: D-Dimer ELEVATED (>0.49): Additional studies and clinical assessments are indicated to conclude diagnosis of: Deep Vein Thrombosis (DVT) or Pulmonary Embolism (PE) Performed By: #### L300.8000 #### [facility] [address] [place], [place], [address] CBC W/DIFF, AUTOMATED Collected: 10/29/2017 Status: F Source: DOM 6:06 AM [facility] REPOSITORY TYPE CODE TESTS RESULT OUT OF RANGE REFERENCE UNITS LAB L100.1000 4.4-11.0 K/mm3 Normal WBC 10.7 LAB L100.1200 4.6-6.2 M/mm3 Normal RBC 4.76 LAB L100.1300 13.0-16.5 g/dl Normal HGB 14.3 LAB L100.1400 40-54 % Normal HCT 43.1 LAB L100.1500 80-94 fL Normal MCV 90.5 LAB L100.1600 27.0-32.0 pg Normal MCH 30.0 LAB L100.1700 32-36 g/gl Normal MCHC 33.2 LAB L100.1810 11.6-14.6 % High RDW CV 15.2 LAB L100.1820 35.1-43.9 fl High RDW SD 50.7 LAB L100.1900 150-450 K/mm3 Normal PLT 275 LAB L100.2000 6.2-12.0 fl Normal MPV 11.2 LAB L100.2100 47-70 % Normal NEUT% 54.7 LAB L100.2200 19-41 % Normal LY% 35.1 LAB L100.2300 0-10 % Normal MONO% 8.2 LAB L100.2400 0-5 % Normal EO% 1.6 LAB L100.2500 0-1 % Normal BASO% 0.1 LAB L100.2550 0.0-0.9 % Normal IM GRAN % 0.300 Result Comment: IG% - Immature Granulocytes (promyelocytes, myelocytes and metamyelocytes) > 1% indicates that a LEFT SHIFT is Present. LAB L100.2620 2.0-7.7 X10 3/uL Normal Absolute Neut 5.9 LAB L100.2720 0.83-4.51 X10 3/ul Normal Absolute Lymph 3.74 Performed By: #### L100.0100 #### [facility] [address] [place], [address] COMPREHENSIVE METABOLIC Collected: 10/29/2017 Status: F Source: [facility] 6:06 AM [facility] REPOSITORY TYPE CODE TESTS RESULT OUT OF RANGE REFERENCE UNITS LAB L501.0100 70-110 mg/dL Normal GLU 89 LAB L501.1000 7-18 mg/dL High BUN 21 LAB L501.1100 0.70-1.30 mg/dL Normal 1.01 CREAT,SERUM Result Comment: The validity of the calculated GFR AND GFRAA in patients over 70 years has not been determined. Clinical correlation is essential. LAB L501.1110 >60 mL/min Normal EST GFR 77 Result Comment: Non- GFR Calc LAB L501.1115 >60 mL/min Normal EST GFR - AA 93 Result Comment: GFR Calc LAB L501.1300 10-20 RATIO High BUN/CRE 20.8 LAB L501.1500 6.4-8.2 g/dL T Normal PROT 8.1 LAB L501.1800 3.2-5.0 g/dL Normal ALB 3.7 LAB L501.1950 2.2-4.2 g/dL High GLOB 4.4 LAB L501.2000 0.9-2.4 RATIO Low A/G 0.8 LAB L501.2200 8.5-10.1 mg/dL CA Normal 8.7 LAB L501.4100 15-37 U/L Normal AST 28 LAB L501.4305 45-117 U/L Normal ALK P 59 LAB L501.4405 16-61 U/L Normal ALT 42 Result Comment: Please note revised ALT reference range effective 2017. LAB L501.4600 0.20-1.00 mg/dL Normal T BILI 0.50 LAB L501.5300 136-145 mmol/L Normal NA 140 LAB L501.5600 3.5-5.1 mmol/L Low K 3.4 LAB L501.5900 98-107 mmol/L Normal CL 105 LAB L501.6100 21.0-32.0 mmol/L Normal CO2 25.0 LAB L501.6200 5-15 Normal GAP 10 Performed By: #### L500.4050 #### [facility] [address] [place], [address] ALLERGIES ALLERGIES DATE TYPE / CODE NAME / CODE REACTION SEVERITY SOURCE 10/22/2018 Drug morphine/F00 UNABLE TO [facility] Allergy/4160 6618459([place] 8178402(SNOMED ) Repository CT) 10/22/2018 Drug aspirin/F006 Mouth swelling [facility] Allergy/4160 557992([facility] [address](SNOMED M) Repository CT) ENCOUNTERS ENCOUNTERS ADMIT/DISCHARGE ACCOUNT ADMITTING ENCOUNTER LOCATION SOURCE NUMBER CLASS 10/23/2018/ [id number] Ambulatory BMSBuilding:B [place] 9 9 [place].[facility] Repository 10/21/2018 [id number] Ambulatory Dom Dom 8 [facility] ing:PSN Repository 10/17/2018 [id number] Ambulatory [place] [facility] ing:MEDOUTP Repository 10/10/2018/ [id number] Ambulatory BMSBuilding:B [place] 9 7 MS.W [facility] Repository 09/25/2018 [id number] Ambulatory [place] [address] [facility] ing:MEDOUTP Repository 09/17/2018/ [id number] Koram, Kimmie Inpatient Dom Dom [address] [facility] ing:PCURoom: Repository [id number]: 1 09/17/2018 [id number] Koram, Kimmie Ambulatory BMSBuilding:B [place] 7 [place] MS.[facility] Repository 09/17/2018 [id number] Koram, Kimmie Ambulatory BMSBuilding:B Dom 8 [place].[facility] Repository 09/17/2018 [id number] Koram, Kimmie Ambulatory BMSBuilding:B [place] 4 [place].[facility] Repository 09/17/2018 [id number] Koram, Kimmie Ambulatory BMSBuilding:B Dom 5 [place]..[facility] Repository 09/17/2018 [id number] Koram, Kimmie Ambulatory BMSBuilding:B Dom 8 [place].[facility] Repository 09/17/2018 [id number] Koram, Kimmie Ambulatory BMSBuilding:B Dom 3 [place] MS.CF.[facility] Repository 09/17/2018 [id number] Koram, Kimmie Ambulatory BMSBuilding:B Dom 6 [place] MS.[facility] Repository 09/17/2018 [id number] Koram, Kimmie Ambulatory BMSBuilding:B Dom 4 [place] MS.CF.[facility] Repository 09/17/2018 [id number] Koram, Kimmie Ambulatory BMSBuilding:B Dom 1 [place] MS.CF.[facility] Repository 09/17/2018 [id number] Koram, Kimmie Ambulatory BMSBuilding:B [place] 6 [place] MS.[facility] Repository 09/17/2018 [id number] Koram, Kimmie Ambulatory BMSBuilding:B [place] 9 [place] MS.CF.[facility] Repository 09/17/2018 [id number] Koram, Kimmie Ambulatory BMSBuilding:B [place] 9 [place].[facility] Repository 09/17/2018 [id number] Koram, Kimmie Ambulatory BMSBuilding:B Dom 6 [place] MS.CF.[facility] Repository 09/17/2018 [id number] Kimmie Nur Ambulatory BMSBuilding:B Dom 6 [place] MS.CF.[facility] Repository 09/17/2018 [id number] Kimmie Nur Ambulatory BMSBuilding:B Dom 8 [place] MS.[facility] Repository 09/17/2018 [id number] Boom Kimmie Ambulatory BMSBuilding:B Dom 1 [place].[facility] Repository 09/17/2018 [id number] Boom Kimmie Ambulatory BMSBuilding:B Dom 2 [place] MS.CF.[facility] Repository 09/17/2018 [id number] Ambulatory BMSBuilding:W Dom 8 [facility] Repository 09/17/2018/ [id number] Ambulatory BMSBuilding:W Dom 8 1 [facility] Repository 09/17/2018/ [id number] Ambulatory BMSBuilding:W [place] 8 6 [facility] Repository 08/14/2018 [id number] Ambulatory [place] 1 [facility] Hospital[facility] Hospital ing:MFPLAB Repository 08/04/2018 [id number] Ambulatory [place] 1 [facility] Hospital[facility] Hospital ing:MEDOUTP Repository 06/27/2018 [id number] Ambulatory [place] 3 [facility] Hospital ing:LAB Repository 06/16/2018 [id number] Ambulatory [place] 0 [facility] Hospital[facility] Hospital ing:MEDOUTP Repository 06/01/2018 [id number] Ambulatory BMSBuilding:W Dom 0 [facility] Repository 05/31/2018/ [id number] Surinder Larson Ambulatory Dom [place] 8 8 [facility] Hospital[facility] Hospital ing:UL6Mxxh: Repository [id number]: 1 05/17/2018/ [id number] Emergency Dom Glen 8 2 [facility] Hospital ing:ED Repository 04/29/2018 [id number] Ambulatory [place] 0 [facility] Hospital ing:MEDOUTP Repository 04/28/2018 [id number] Ambulatory Dom Glen 2 [facility] Hospital ing:MEDOUTP Repository 03/27/2018 [id number] Ambulatory Glen Dom 6 [facility] ing:MTLAB Repository 03/11/2018 [id number] Ambulatory Dom [place] 4 [facility] ing:MEDOUTP Repository 01/22/2018/ [id number] Marlon, Inpatient Dom Dom [address] [facility] ing:VC0Zimy: Repository [id number]: 1 01/22/2018 [id number] Marlon, Ambulatory BMSBuilding:B Dom 6 [place].[facility] Repository 01/22/2018 [id number] Cinthyaeletsky, Ambulatory BMSBuilding:B [place] 8 [place].[facility] Repository 01/22/2018 [id number] Cinthyaeletskaleb, Ambulatory BMSBuilding:B Dom 6 [place].[facility] Repository 01/21/2018 [id number] Ambulatory Dom Dom 5 [facility] ing:MEDOUTP Repository 12/05/2017 [id number] Ambulatory Dom Dom 7 [facility] ing:MTRAD Repository 11/27/2017 [id number] Ambulatory [place] [facility] ing:CVS Repository 11/26/2017 [id number] Ambulatory Glen Dom 9 [facility] ing:MEDOUTP Repository 10/29/2017 [id number] Ambulatory Dom [place] 7 [facility] ing:LAB Repository PAYERS PAYERS ENCOUNTER GUARANTOR PAYER SUBSCRIBER SOURCE 10/23/2018 MEGAN Meza Primary MEGAN D Glen [id number] [place] Insurance:MEDICARE [facility]: [facility] FÉLIX, PART A olic [id number] [facility]ley [facility] [address]Aih: Number: Repository [id number] () Date:2018-09-29 10/23/2018 Secondary MEGAN Fernandes Insurance:MICHAELverónica DAMON: [facility] Number: [id number] Hospital [id number] Repository Date:5256-04-51[address]DP, [place] [address]OL: 10/23/2018 Tertiary NOT GIVENUNK Dom Insurance:SELF PAY [facility] Number: Effective Repository Date:2018-10-23 10/21/2018 MEGAN D Primary MEGAN D Dom [id number] [place] Insurance:MEDICARE MARTINDOB: [facility], PART A [facility] [id number] Tingley Hospital [address]Opb: Number: Repository [id number] (HP) Date:2018-10-10 10/21/2018 Secondary MEGAN D Glen Insurance:AARPPolicy JEWELDOB: Community Number: [id number] Hospital [id number] Repository Date:3568-78-36[address], [place] [address]OJ: 10/21/2018 Tertiary NOT GIVENUNK Dom Insurance:SELF PAY [facility] Number: Effective Repository Date:2018-10-10 10/17/2018 MEGAN D Primary MEGAN D Glen [id number] [place] Insurance:MEDICARE EVANSPORTDOB: [facility], PART A [facility] [id number] Tingley Hospital [address]Eyr: Number: Repository [id number] (HP) Date:2018-10-14 10/17/2018 Secondary MEGAN D Glen Insurance:AARPPolicisaura URIASB: Community Number: [id number] Hospital [id number] Repository Date:2395-03-79[address], [place] [address]TZ: 10/17/2018 Tertiary NOT GIVENUNK Dom Insurance:SELF PAY [facility] Number: Effective Repository Date:2018-10-14 10/10/2018 MEGAN D Primary MEGAN D Odm [id number] [place] Insurance:MEDICARE EVANSPORTDOB: [facility], PART A [facility] [id number] Tingley Hospital [address]Nil: Number: Repository [id number] (HP) Date:2018-09-25 10/10/2018 Secondary MEGAN D Glen Insurance:AARPPolicy JEWELDOB: Community Number: [id number] Hospital [id number] Repository Date:4723-75-63ZJ [address]G, [place] [address]BC: 10/10/2018 Tertiary NOT GIVENUNK Dom Insurance:SELF PAY [facility] Number: Effective Repository Date:2018-10-07 09/25/2018 MEGAN D Primary MEGAN D Dom [id number] [place] Insurance:MEDICARE MARTINDOB: [facility], PART A [facility] [id number] Tingley Hospital [address]Mgu: Number: Repository [id number] (HP) Date:2018-08-04 09/25/2018 Secondary MEGAN D Glen Insurance:AARPPolicy EVANSPORTDOB: Community Number: [id number] Hospital [id number] Repository Date:8869-22-72EL [address]WBIM, [place] [address]WQ: 09/25/2018 Tertiary NOT GIVENUNK Glen Insurance:SELF PAY [facility] Number: Effective Repository Date:2018-08-04 09/17/2018 MEGAN D Primary MEGAN D Glen [id number] [place] Insurance:MEDICARE MARTINDOB: [facility] [id number] Tingley Hospital [address]Bvz: Number: Repository [id number] (HP) Date:2018-09-17 09/17/2018 Secondary MEGAN D Dom Insurance:AARPPolicy JEWELDOB: Community Number: [id number] Hospital [id number] Repository Date:0349-66-96[address]CCH, [place] [address]WN: 09/17/2018 Tertiary NOT GIVENUNK Dom Insurance:SELF PAY [facility] Number: Effective Repository Date:2018-09-17 09/17/2018 MEGAN D Primary MEGAN D Glen [id number] [place] Insurance:MEDICARE EVANSPORTDOB: [facility], PART A [facility] [id number] Tingley Hospital [address]Dfy: Number: Repository [id number] (HP) Date:2018-09-17 09/17/2018 Secondary MEGAN D Dom Insurance:AARPPolicy JEWELDOB: Community Number: [id number] Hospital [id number] Repository Date:6128-75-77JL [address], [place] [address]DO: 09/17/2018 Tertiary NOT GIVENUNK Dom Insurance:SELF PAY [facility] Number: Effective Repository Date:2018-09-17 09/17/2018 MEGAN D Primary MEGAN D Dom [id number] [place] Insurance:MEDICARE MARTINDOB: [facility], PART A [facility] [id number] Tingley Hospital [address]Pcx: Number: Repository [id number] (HP) Date:2018-09-17 09/17/2018 Secondary MEGAN D Glen Insurance:AARPPolicy JEWELDOB: Community Number: [id number] Hospital [id number] Repository Date:1140-56-06[address], [place] [address]PO: 09/17/2018 Tertiary NOT GIVENUNK Glen Insurance:SELF PAY [facility] Number: Effective Repository Date:2018-09-17 09/17/2018 MEGAN D Primary MEGAN D Glen [id number] [place] Insurance:MEDICARE MARTINDOB: [facility] [id number] Tingley Hospital [address]Esx: Number: Repository [id number] (HP) Date:2018-09-17 09/17/2018 Secondary MEGAN D Glen Insurance:AARPPolicy JEWELDOB: Community Number: [id number] Hospital [id number] Repository Date:2865-00-41KS [address]X, [place] [address]ZE: 09/17/2018 Tertiary NOT GIVENUNK Glen Insurance:SELF PAY [facility] Number: Effective Repository Date:2018-09-17 09/17/2018 MEGAN D Primary MEGAN D Glen [id number] [place] Insurance:MEDICARE MARTINDOB: [facility], PART A [facility] [id number] Tingley Hospital [address]Bjd: Number: Repository [id number] (HP) Date:2018-09-17 09/17/2018 Secondary MEGAN D [place] Insurance:AARPPolicy JEWELDOB: Community Number: [id number] Hospital [id number] Repository Date:2828-33-88RN [facility] 844709DMQXJMN, [place] [address]EF: 09/17/2018 Tertiary NOT GIVENUNK Dom Insurance:SELF PAY [facility] Number: Effective Repository Date:2018-09-17 09/17/2018 MEGAN D Primary MEGAN D Dom [id number] [place] Insurance:MEDICARE MARTINDOB: [facility], PART A [facility] [id number] Tingley Hospital [address]Nyc: Number: Repository [id number] (HP) Date:2018-09-17 09/17/2018 Secondary MEGAN D Glen Insurance:AARPPolicisaura HOLLOWAYDOB: Community Number: [id number] Hospital [id number] Repository Date:9568-52-17BG [facility] 471981[place], [place] [address]CQ: 09/17/2018 Tertiary NOT GIVENUNK Glen Insurance:SELF PAY [facility] Number: Effective Repository Date:2018-09-17 09/17/2018 MEGAN D Primary MEGAN D Dom [id number] [place] Insurance:MEDICARE MARTINDOB: [facility], PART A [facility] [id number] Tingley Hospital [address]Dil: Number: Repository [id number] (HP) Date:2018-09-17 09/17/2018 Secondary MEGAN D Dom Insurance:AARPPolicy JEWELDOB: Community Number: [id number] Hospital [id number] Repository Date:1047-88-39TS [address]XRHHPET, [place] [address]TO: 09/17/2018 Tertiary NOT GIVENUNK Glen Insurance:SELF PAY [facility] Number: Effective Repository Date:2018-09-17 09/17/2018 MEGAN D Primary MEGAN D Glen [id number] [place] Insurance:MEDICARE EVANSPORTDOB: [facility], PART A [facility] [id number] Tingley Hospital [address]Sad: Number: Repository [id number] (HP) Date:2018-09-17 09/17/2018 Secondary MEGAN D Dom Insurance:AARPPolicy [facility]: Community Number: [id number] Hospital [id number] Repository Date:0287-61-03VU [facility] 082774DPBUKKA, [place] [address]AA: 09/17/2018 Tertiary NOT GIVENUNK [place] Insurance:SELF PAY [facility] Number: Effective Repository Date:2018-09-17 09/17/2018 MEGAN D Primary MEGAN D Glen [id number] [place] Insurance:MEDICARE MARTINDOB: [facility], PART A [facility] [id number] Tingley Hospital [address]Ryq: Number: Repository [id number] (HP) Date:2018-09-17 09/17/2018 Secondary MEGAN D Glen Insurance:AARPPolicy EVANSPORTDOB: Community Number: [id number] Hospital [id number] Repository Date:5540-53-24RL [address]PHGGMOS, [place] [address]UK: 09/17/2018 Tertiary NOT GIVENUNK [place] Insurance:SELF PAY [facility] Number: Effective Repository Date:2018-09-17 09/17/2018 MEGAN D Primary MEGAN D Glen [id number] [place] Insurance:MEDICARE EVANSPORTDOB: [facility], PART A [facility] [id number] Tingley Hospital [address]Uma: Number: Repository [id number] (HP) Date:2018-09-17 09/17/2018 Secondary MEGAN D Glen Insurance:AARPPolicy BRIDGETTB: Community Number: [id number] Hospital [id number] Repository Date:9213-67-09JS [address]UQXMKWG, [place] [address]JS: 09/17/2018 Tertiary NOT GIVENUNK Dom Insurance:SELF PAY [facility] Number: Effective Repository Date:2018-09-17 09/17/2018 MEGAN D Primary MEGAN D Dom [id number] [place] Insurance:MEDICARE JEWELDOB: [facility], PART A [facility] [id number] Tingley Hospital [address]Jvm: Number: Repository [id number] (HP) Date:2018-09-17 09/17/2018 Secondary MEGAN D Glen Insurance:AARPPolicy JEWELDOB: Community Number: [id number] Hospital [id number] Repository Date:4961-87-78RJ [address]MVOIXWQ, [place] [address]DP: 09/17/2018 Tertiary NOT GIVENUNK [place] Insurance:SELF PAY [facility] Number: Effective Repository Date:2018-09-17 09/17/2018 MEGAN D Primary MEGAN D Glen [id number] [place] Insurance:MEDICARE MARTINDOB: [facility], PART A [facility] [id number] Tingley Hospital [address]Hai: Number: Repository [id number] (HP) Date:2018-09-17 09/17/2018 Secondary MEGAN D [place] Insurance:AARPPolicy JEWELDOB: Community Number: [id number] Hospital [id number] Repository Date:5218-05-56DW [address]KULQJGC, [place] [address]KU: 09/17/2018 Tertiary NOT GIVENUNK Dom Insurance:SELF PAY [facility] Number: Effective Repository Date:2018-09-17 09/17/2018 MEGAN D Primary MEGAN D Glen [id number] [place] Insurance:MEDICARE MARTINDOB: [facility], PART A [facility] [id number] Tingley Hospital [address]Dma: Number: Repository [id number] (HP) Date:2018-09-17 09/17/2018 Secondary MEGAN D Dom Insurance:AARPPolicy JEWELDOB: Community Number: [id number] Hospital [id number] Repository Date:2763-20-45ZH [facility] 852332URJPRDY, [place] [address]EC: 09/17/2018 Tertiary NOT GIVENUNK [place] Insurance:SELF PAY [facility] Number: Effective Repository Date:2018-09-17 09/17/2018 MEGAN D Primary MEGAN D Dom [id number] [place] Insurance:MEDICARE MARTINDOB: [facility], PART A [facility] [id number] Tingley Hospital [address]Rxb: Number: Repository [id number] (HP) Date:2018-09-17 09/17/2018 Secondary MEGAN D Dom Insurance:AARPPolicy JEWELDOB: Community Number: [id number] Hospital [id number] Repository Date:1726-36-37DE [facility] 302844GWRGVES, [place] [address]DR: 09/17/2018 Tertiary NOT GIVENUNK [place] Insurance:SELF PAY [facility] Number: Effective Repository Date:2018-09-17 09/17/2018 MEGAN D Primary MEGAN D Dom [id number] [place] Insurance:MEDICARE MARTINDOB: [facility], PART A [facility] [id number] Tingley Hospital [address]Ltt: Number: Repository [id number] (HP) Date:2018-09-17 09/17/2018 Secondary MEGAN D Glen Insurance:AARPPolicy MARTINDOB: Community Number: [id number] Hospital [id number] Repository Date:9668-25-73ZS [address]OLF[place]EN, [place] [address]XF: 09/17/2018 Tertiary NOT GIVENUNK Dom Insurance:SELF PAY [facility] Number: Effective Repository Date:2018-09-17 09/17/2018 MEGAN D Primary MEGAN D Glen [id number] [place] Insurance:MEDICARE MARTINDOB: [facility], PART A [facility] [id number] Tingley Hospital [address]Zsr: Number: Repository [id number] (HP) Date:2018-09-17 09/17/2018 Secondary MEGAN D Dom Insurance:AARPPolicy [facility]: Community Number: [id number] Hospital [id number] Repository Date:9766-99-01LB [facility] 688254[place]OS[place], [place] [address]VU: 09/17/2018 Tertiary NOT GIVENUNK Dom Insurance:SELF PAY [facility] Number: Effective Repository Date:2018-09-17 09/17/2018 MEGAN D Primary MEGAN D Dom [id number] [place] Insurance:MEDICARE MARTINDOB: [facility] [id number] Tingley Hospital [address]Dxr: Number: Repository [id number] (HP) Date:2018-09-17 09/17/2018 Secondary MEGAN D Dom Insurance:AARPPolicy JEWELB: Community Number: [id number] Hospital [id number] Repository Date:1104-96-83WA [address]ENXPDLM, [place] [address]SS: 09/17/2018 Tertiary NOT GIVENUNK [place] Insurance:SELF PAY [facility] Number: Effective Repository Date:2018-09-17 09/17/2018 MEGAN D Primary MEGAN D Dom [id number] [place] Insurance:MEDICARE MARTINDOB: [facility], PART A [facility] [id number] Tingley Hospital 70[address]Nnu: Number: Repository [id number] (HP) Date:2018-09-17 09/17/2018 Secondary MEGAN D Dom Insurance:AARPPolicy JEWELDOB: Community Number: [id number] Hospital [id number] Repository Date:2691-82-46TC [address]OVIWG, [place] [address]TB: 09/17/2018 Tertiary NOT GIVENUNK Dom Insurance:SELF PAY [facility] Number: Effective Repository Date:2018-09-17 09/17/2018 MEGAN D Primary MEGAN D Glen [id number] [place] Insurance:MEDICARE MARTINDOB: [facility], PART A [facility] [id number] Tingley Hospital [address]Atz: Number: Repository [id number] (HP) Date:2018-09-17 09/17/2018 Secondary MEGAN D Dom Insurance:AARPPolicy JEWELB: Community Number: [id number] Hospital [id number] Repository Date:7611-45-73QA [address]HYLIOJP, [place] [address]JX: 09/17/2018 Tertiary NOT GIVENUNK Dom Insurance:SELF PAY [facility] Number: Effective Repository Date:2018-09-17 09/17/2018 MEGAN D Primary MEGAN D Glen [id number] [place] Insurance:MEDICARE MARTINDOB: [facility], PART A [facility] [id number] Tingley Hospital 179[address]Pqw: Number: Repository [id number] (HP) Date:2018-09-17 09/17/2018 Secondary MEGAN D Glen Insurance:AARPPolicy JEWELDOB: Community Number: [id number] Hospital [id number] Repository Date:3760-80-93BC [address]HJALKTG, [place] [address]IP: 09/17/2018 Tertiary NOT GIVENUNK Dom Insurance:SELF PAY [facility] Number: Effective Repository Date:2018-09-17 09/17/2018 MEGAN D Primary MEGAN D Dom [id number] [place] Insurance:MEDICARE MARTINDOB: [facility], PART A [facility] [id number] Tingley Hospital 9[address]Uaq: Number: Repository [id number] (HP) Date:2018-09-17 09/17/2018 Secondary MEGAN D Glen Insurance:AARPPolicy EVANSPORTDOB: Community Number: [id number] Hospital [id number] Repository Date:3728-23-33TP [facility] 641078RKVMGIH, [place] [address]VA: 09/17/2018 Tertiary NOT GIVENUNK Dom Insurance:SELF PAY [facility] Number: Effective Repository Date:2018-09-17 08/14/2018 MEGAN D Primary MEGAN D Glen [id number] [place] Insurance:MEDICARE MARTINDOB: [facility], PART A [facility] [id number] Tingley Hospital [address]Prb: Number: Repository [id number] (HP) Date:2018-08-14 08/14/2018 Secondary MEGAN D Dom Insurance:AARPPolicy JEWELDOB: Community Number: [id number] Hospital [id number] Repository Date:6381-84-64XI [address]NRGYDCB, [place] [address]BI: 08/14/2018 Tertiary NOT GIVENUNK Dom Insurance:SELF PAY [facility] Number: Effective Repository Date:2018-08-14 08/04/2018 MEGAN D Primary MEGAN D Glen [id number] [place] Insurance:MEDICARE MARTINDOB: [facility], PART A [facility] [id number] Tingley Hospital 750[address]Xgm: Number: Repository [id number] (HP) Date:2018-06-16 08/04/2018 Secondary MEGAN D Glen Insurance:AARPPolicy MARTINDOB: Community Number: [id number] Hospital [id number] Repository Date:2441-42-58CP [address]TZORUYX, [place] [address]UW: 08/04/2018 Tertiary NOT GIVENUNK Dom Insurance:SELF PAY [facility] Number: Effective Repository Date:2018-06-16 06/27/2018 MEGAN D Primary MEGAN D Glen [id number] [place] Insurance:MEDICARE MARTINDOB: [facility], PART A [facility] [id number] Tingley Hospital 165[address]Cgo: Number: Repository [id number] (HP) Date:2018-06-27 06/27/2018 Secondary MEGAN D Dom Insurance:AARPPolicy [facility]: Community Number: [id number] Hospital [id number] Repository Date:2371-50-28VX [address]GPKNEPB, [place] [address]UQ: 06/27/2018 Tertiary NOT GIVENUNK [place] Insurance:SELF PAY [facility] Number: Effective Repository Date:2018-06-27 06/16/2018 MEGAN D Primary MEGAN D Dom [id number] [place] Insurance:MEDICARE MARTINDOB: [facility], PART A [facility] [id number] Tingley Hospital 675[address]Lmr: Number: Repository [id number] (HP) Date:2018-04-29 06/16/2018 Secondary MEGAN D Dom Insurance:[facility]LEYPPolicy JEWELB: Community Number: [id number] Hospital [id number] Repository Date:2471-40-82JR [facility] 907359UY[place], [place] [address]LM: 06/16/2018 Tertiary NOT GIVENUNK [place] Insurance:SELF PAY [facility] Number: Effective Repository Date:2018-04-29 06/01/2018 MEGAN D Primary MEGAN D Glen [id number] [place] Insurance:MEDICARE EVANSPORTDOB: [facility], PART A [facility] [id number] Tingley Hospital 110[address]Seb: Number: Repository [id number] (HP) Date:2018-05-31 06/01/2018 Secondary MEGAN D [place] Insurance:AARPPolicy JEWELDOB: Community Number: [id number] Hospital [id number] Repository Date:0936-91-52MD [address]XEOCQCP, [place] [address]TZ: 06/01/2018 Tertiary NOT GIVENUNK Dom Insurance:SELF PAY [facility] Number: Effective Repository Date:2018-06-01 05/31/2018 MEGAN D Primary MEGAN D Dom [id number] [place] Insurance:MEDICARE MARTINDOB: [facility], PART A [facility] [id number] Tingley Hospital 663[address]Dij: Number: Repository [id number] (HP) Date:2018-05-31 05/31/2018 Secondary MEGAN D [place] Insurance:AARPPolicy JEWELDOB: Community Number: [id number] Hospital [id number] Repository Date:9008-54-65XK [address]KFQMFGA, [place] [address]HO: 05/31/2018 Tertiary NOT GIVENUNK [place] Insurance:SELF PAY [facility] Number: Effective Repository Date:2018-05-31 05/17/2018 MEGAN D Primary MEGAN D Glen [id number] [place] Insurance:MEDICARE MARTINDOB: [facility], PART A [facility] [id number] Tingley Hospital 268[address]Nze: Number: Repository [id number] (HP) Date:2018-05-17 05/17/2018 Secondary MEGAN D Dom Insurance:AARPPolicy JEWELDOB: Community Number: [id number] Hospital [id number] Repository Date:7083-18-56VP [facility] 009197UWFQWOM, [place] [address]MJ: 05/17/2018 Tertiary NOT GIVENUNK [place] Insurance:SELF PAY [facility] Number: Effective Repository Date:2018-05-17 04/29/2018 MEGAN D Primary MEGAN D Dom [id number] [place] Insurance:MEDICARE MARTINDOB: [facility] [id number] Tingley Hospital 705[address]Gkb: Number: Repository [id number] (HP) Date:2018-04-29 04/29/2018 Secondary MEGAN D Dom Insurance:AARPPolicy JEWELDOB: Community Number: [id number] Hospital [id number] Repository Date:4536-59-84WM [address]SYBBSYI, [place] [address]SG: 04/29/2018 Tertiary NOT GIVENUNK [place] Insurance:SELF PAY [facility] Number: Effective Repository Date:2018-04-29 04/28/2018 MEGAN D Primary MEGAN D Glen [id number] [place] Insurance:MEDICARE MARTINDOB: [facility], PART A [facility] [id number] Tingley Hospital 549[address]Lei: Number: Repository [id number] (HP) Date:2018-03-11 04/28/2018 Secondary MEGAN D Dom Insurance:AARPPolicy BRIDGETTB: Community Number: [id number] Hospital [id number] Repository Date:3345-87-21WT [facility] 551892PHNNKBF, [place] [address]AY: 04/28/2018 Tertiary NOT GIVENUNK Dom Insurance:SELF PAY [facility] Number: Effective Repository Date:2018-03-11 03/27/2018 MEGAN D Primary MEGAN D Dom [id number] [place] Insurance:MEDICARE MARTINDOB: [facility], PART A [facility] [id number] Tingley Hospital 859[address]Lxp: Number: Repository [id number] (HP) Date:2018-03-27 03/27/2018 Secondary MEGAN D Dom Insurance:AARPPolicy [facility]: Community Number: [id number] Hospital [id number] Repository Date:7541-81-53LG [facility] 360278NG[place], [place] [address]LZ: 03/27/2018 Tertiary NOT GIVENUNK [place] Insurance:SELF PAY [facility] Number: Effective Repository Date:2018-03-27 03/11/2018 MEGAN D Primary MEGAN D Glen [id number] [place] Insurance:MEDICARE EVANSPORTDOB: [facility], PART A [facility] [id number] Tingley Hospital 59[address]Dmn: Number: Repository [phone] [id number] -4 (HP) Date:2018-01-21 03/11/2018 Secondary MEGAN D Dom [facility]: [facility] Number: [id number] Hospital [id number] Repository Date:0354-25-79DK [address]VGFIOFL, [place] [address]EN: 03/11/2018 Tertiary NOT GIVENUNK [place] Insurance:SELF PAY [facility] Number: Effective Repository Date:2018-01-21 01/22/2018 MEGAN D Primary MEGAN D Glen [id number] [place] Insurance:MEDICARE MARTINDOB: [facility], PART A [facility] [id number] Tingley Hospital 185[address]Mad: Number: Repository [phone] [id number] (HP) Date:2018-01-22 01/22/2018 Secondary MEGAN D Glen Insurance:[facility]: Community Number: [id number] Hospital [id number] Repository Date:7981-93-44QE [address]OWXGKFH, [place] [address]CZ: 01/22/2018 Tertiary NOT GIVENUNK [place] Insurance:SELF PAY [facility] Number: Effective Repository Date:2018-01-22 01/22/2018 MEGAN D Primary MEGAN D Dom [id number] [place] Insurance:MEDICARE EVANSPORTDOB: [facility], PART A [facility] [id number] Tingley Hospital 00055Rsk: Number: Repository [phone] [id number] (HP) Date:2018-01-22 01/22/2018 Secondary MEGAN D [place] Insurance:AARPPolicy BRIDGETTB: Community Number: [id number] Hospital [id number] Repository Date:0503-20-98DH [facility] 673594FQMPUBR, [place] [address]WE: 01/22/2018 Tertiary NOT GIVENUNK [place] Insurance:SELF PAY [facility] Number: Effective Repository Date:2018-01-22 01/22/2018 MEGAN D Primary MEGAN D Glen [id number] [place] Insurance:MEDICARE EVANSPORTDOB: [facility], PART A [facility] [id number] Tingley Hospital 495[address]Aey: Number: Repository [phone] [id number] -4 (HP) Date:2018-01-22 01/22/2018 Secondary MEGAN D Dom Insurance:Jean-Claude URIASB: Community Number: [id number] Hospital [id number] Repository Date:3062-46-01RG [facility] 432886XUNKTUZ, [place] [address]LK: 01/22/2018 Tertiary NOT GIVENUNK Dom Insurance:SELF PAY [facility] Number: Effective Repository Date:2018-01-22 01/22/2018 MEGAN D Primary MEGAN D Glen [id number] [place] Insurance:MEDICARE MARTINDOB: [facility], PART A [facility] [id number] Tingley Hospital 32805Tgo: Number: Repository [phone] [id number] -4 (HP) Date:2018-01-22 01/22/2018 Secondary MEGAN D Glen Insurance:MICHAELPPolicy BRIDGETTB: Community Number: [id number] Hospital [id number] Repository Date:2979-95-75XX [facility] 871744GIEPSHP, [place] [address]QP: 01/22/2018 Tertiary NOT GIVENUNK [place] Insurance:SELF PAY [facility] Number: Effective Repository Date:2018-01-22 01/21/2018 MEGAN D Primary MEGAN D Glen [id number] [place] Insurance:MEDICARE MARTINDOB: [facility] [id number] Tingley Hospital [address]Crr: Number: Repository [phone] [id number] (HP) Date:2017-11-26 01/21/2018 Secondary MEGAN D Dom Insurance:AARPPolicy BRIDGETTB: Community Number: [id number] Hospital [id number] Repository Date:6314-83-33MU [facility] 319943SXPCVBO, [place] [address]IV: 01/21/2018 Tertiary NOT GIVENUNK [place] Insurance:SELF PAY [facility] Number: Effective Repository Date:2017-11-26 12/05/2017 MEGAN D Primary MEGAN D Dom [id number] [place] Insurance:MEDICARE MARTINDOB: [facility], PART A [facility] [id number] Tingley Hospital 63805Weu: Number: Repository [phone] [id number] -4 (HP) Date:2017-12-05 12/05/2017 Secondary MEGAN D [place] Insurance:MICHAELPPolicisaura URIASB: Community Number: [id number] Hospital [id number] Repository Date:1382-14-01AD [address]UQPUIEK, [place] [address]JY: 12/05/2017 Tertiary NOT GIVENUNK Dom Insurance:SELF PAY [facility] Number: Effective Repository Date:2017-12-05 11/27/2017 MEGAN D Primary MEGAN D Dom [id number] [place] Insurance:MEDICARE JEWELDOB: [facility]ROBIART[facility] [id number] Tingley Hospital 133[address]Gbj: Number: Repository [phone] [id number] -4 (HP) Date:2017-11-25 11/27/2017 Secondary MEGAN D Dom Insurance:AARPPolicy BRIDGETTB: Community Number: [id number] Hospital [id number] Repository Date:3293-71-43GG [facility] 324047HKDZQKY, [place] [address]YD: 11/27/2017 Tertiary NOT GIVENUNK Dom Insurance:SELF PAY [facility] Number: Effective Repository Date:2017-11-25 11/26/2017 MEGAN D Primary MEGAN D Glen [id number] [place] Insurance:MEDICARE EVANSPORTDOB: [facility], PART A [facility] [id number] Tingley Hospital 889[address]Hyi: Number: Repository [phone] [id number] -4 (HP) Date:2017-10-01 11/26/2017 Secondary MEGAN D Dom Insurance:AARPPolicy [facility]: Community Number: [id number] Hospital [id number] Repository Date:6231-22-86CC [address]MUUYBSG, [place] [address]XK: 11/26/2017 Tertiary NOT GIVENUNK Dom Insurance:SELF PAY [facility] Number: Effective Repository Date:2017-10-01 10/29/2017 MEGAN D Primary MEGAN D Dom [id number] [place] Insurance:MEDICARE MARTINDOB: [facility], PART A [facility] [id number] Tingley Hospital 12335Ajh: Number: Repository [phone] [id number] -4 (HP) Date:2017-10-29 10/29/2017 Secondary MEGAN D [place] Insurance:AARPPolicy JEWELB: Community Number: [id number] Hospital [id number] Repository Date:8907-13-48QS [address]PZERKGX, [place] [address]DE: 10/29/2017 Tertiary NOT GIVENUNK Dom Insurance:SELF PAY [facility] Number: Effective Repository Date:2017-10-29
== END ==
PROVIDERS: Family Provider Family Medicine; PCP Family Medicine; Referring Provider Internal Medicine Rheumatology; Visit Provider Internal Medicine Rheumatology
DX: M06.09 Rheumatoid arthritis without rheumatoid factor, multiple sites (principal); K51.80 Other ulcerative colitis without complications
CPT/HCPCS: 96413; 96415; J7050; A4216; Q5103

== ENCOUNTER → 2018-10-21 07:53 | Outpatient (CLI) | payer MEDICARE, OTHER, SELFPAY ==
[2018-10-10 11:17] VITALS: BMI 33.0
[2018-10-17 08:10] VITALS: BMI 32.1
--- NOTE | 2018-10-21 11:12 | PFTCOMP_ITS ---
COMPLETE PULMONARY FUNCTION TEST INTERPRETATION Brief HPI: Patient is a 73 year old male, currently under the care of myself, who presents to [facility] for complete pulmonary function tests secondary to diagnosis of dyspnea. Respiratory therapist reports good effort and reproducible results. Interpretation: Forced expiration spirometry shows no large airways obstructive ventilatory defect with an FEV1 of 97% predicted. There is no significant bronchodilator response by strict ATS criteria. Spirograms are of good quality and plateau normally. The respiratory flow volume loop shows a normal pattern. Lung volumes by body plethysmography show an elevated total lung capacity at 6.75 L, 118% predicted. All other lung volumes are within normal limits. Diffusion capacity by carbon monoxide is normal at 120% predicted. The airway resistance is normal. No previous pulmonary function tests were available for review. Impression: These pulmonary function tests are within normal limits.
--- OUTSIDE RECORDS SUMMARY | 2018-12-23 08:01 | XMS RPT_ITS ---
:1945 Author Organization OHIP Support Name Relationship Address Phone RADHABRYNN Unavailable [address] + [place] [address] LORI HOLLOWAY Unavailable [address] + [place] [address] R Unavailable Unavailable Unavailable SARITABRODYBRYNN Unavailable [address] + [place] [address] LORI HOLLOWAY Unavailable [address] + [place] [address] R Unavailable Unavailable Unavailable BRYNN GARCIA Unavailable Unavailable + LORI HOLLOWAY Unavailable [address] + [place] [address] R Unavailable Unavailable Unavailable LORI HOLLOWAY Unavailable [address] + [place] [address] R Unavailable Unavailable Unavailable LORI HOLLOWAY Unavailable [address] + [place] [address] R Unavailable Unavailable Unavailable LORI HOLLOWAY Unavailable [address] + [place] [address] R Unavailable Unavailable Unavailable LORI HOLLOWAY Unavailable [address] + [place] [address] R Unavailable Unavailable Unavailable LORI HOLLOWAY Unavailable [address] + [place] [address] R Unavailable Unavailable Unavailable LORI HOLLOWAY Unavailable [address] + [place] [address] R Unavailable Unavailable Unavailable LORI HOLLOWAY Unavailable [address] + [place] [address] R Unavailable Unavailable Unavailable LORI HOLLOWAY Unavailable [address] + [place] [address] R Unavailable Unavailable Unavailable LORI HOLLOWAY Unavailable [address] + [place] [address] R Unavailable Unavailable Unavailable JEWEL LORI Unavailable [address] + [place] [address] R Unavailable Unavailable Unavailable SUSAN HOLLOWAYELA Unavailable [address] + [place] [address] R Unavailable Unavailable Unavailable SUSAN HOLLOWAYELA Unavailable [address] + [place] [address] R Unavailable Unavailable Unavailable LORI HOLLOWAY Unavailable [address] + [place] [address] R Unavailable Unavailable Unavailable LORI HOLLOWAY Unavailable [address] + [place] [address] R Unavailable Unavailable Unavailable LORI HOLLOWAY Unavailable [address] + [place] [address] R Unavailable Unavailable Unavailable LORI HOLLOWAY Unavailable [address] + [place] [address] R Unavailable Unavailable Unavailable LORI HOLLOWAY Unavailable [address] + [place] [address] R Unavailable Unavailable Unavailable LORI HOLLOWAY Unavailable [address] + [place] [address] R Unavailable Unavailable Unavailable LORI HOLLOWAY Unavailable [address] + [place] [address] R Unavailable Unavailable Unavailable LORI HOLLOWAY Unavailable [address] + [place] [address] R Unavailable Unavailable Unavailable SUSAN HOLLOWAYELA Unavailable [address] + [place] [address] R Unavailable Unavailable Unavailable SUSAN HOLLOWAYELA Unavailable [address] + [place] [address] R Unavailable Unavailable Unavailable SUSAN HOLLOWAYELA Unavailable [address] + [place] [address] R Unavailable Unavailable Unavailable SUSAN HOLLOWAYELA Unavailable [address] + [place] [address] R Unavailable Unavailable Unavailable SUSAN HOLLOWAYELA Unavailable [address] + [place] [address] R Unavailable Unavailable Unavailable SUSAN HOLLOWAYELA Unavailable [address] + [place] [address] R Unavailable Unavailable Unavailable JEWELLORI Unavailable [address] + [place] [address] R Unavailable Unavailable Unavailable JEWELLORI Unavailable [address] + [place] [address] R Unavailable Unavailable Unavailable JEWELLORI Unavailable [address] + [place] [address] R Unavailable Unavailable Unavailable JEWEL LORI Unavailable [address] + [place] [address] R Unavailable Unavailable Unavailable JEWELLORI Unavailable [address] + [place] [address] R Unavailable Unavailable Unavailable JEWEL LORI Unavailable [address] + [place] [address] R Unavailable Unavailable Unavailable JEWEL LORI Unavailable [address] + [place] [address] R Unavailable Unavailable Unavailable LORI HOLLOWAY Unavailable [address] + [place] [address] R Unavailable Unavailable Unavailable JEWEL LORI Unavailable [address] + [place] [address] R Unavailable Unavailable Unavailable LORI HOLLOWAY Unavailable [address] + [place] [address] R Unavailable Unavailable Unavailable JEWEL LORI Unavailable [address] + [place] [address] R Unavailable Unavailable Unavailable LORI HOLLOWAY Unavailable [address] + [place] [address] R Unavailable Unavailable Unavailable LORI HOLLOWAY Unavailable [address] + [place] [address] R Unavailable Unavailable Unavailable JEWELLORI Unavailable [address] + [place] [address] R Unavailable Unavailable Unavailable LORI HOLLOWAY Unavailable [address] + [place] [address] R Unavailable Unavailable Unavailable LORI HOLLOWAY Unavailable [address] + [place] [address] R Unavailable Unavailable Unavailable LORI HOLLOWAY Unavailable [address] + [place] [address] R Unavailable Unavailable Unavailable Care Team Providers Name Role Phone Harry Jayme Primary Care Unavailable Koram, Kimmie Geovanna Admitting Unavailable Koram, Kimmie Geovanna Referring Unavailable Rico Tilley Attending Unavailable Chuy Manjarrez Consulting Unavailable RianAquiles miramontes Consulting Unavailable Koram, Kimmie Geovanna Admitting Unavailable Koram, Kimmie Geovanna Attending Unavailable Koram, Kimmie Geovanna Referring Unavailable [facility] Primary Care Unavailable Koram, Kimmie Geovanna Consulting Unavailable Marycruz Yen Attending Unavailable Marycruz Yen Referring Unavailable [facility] Primary Care Unavailable Koram, Kimmie Geovanna Admitting Unavailable Koram, Kimmie Geovanna Referring Unavailable [facility] Primary Care Unavailable Shelia Sterling Consulting Unavailable Shelia Sterling Attending Unavailable Koram, Kimmie Geovanna Admitting Unavailable Koram, Kimmie Geovanna Referring Unavailable [facility] Care Unavailable Chuy Manjarrez Consulting Unavailable Rico Tilley Attending Unavailable Treva, Rico Consulting Unavailable Koram, Kimmie Geovanna Admitting Unavailable Chuy Manjarrez Attending Unavailable Koram, Kimmie Geovanna Referring Unavailable [facility] Primary Care Unavailable Chuy Manjarrez Consulting Unavailable Rico Tilley Consulting Unavailable Rico Tilley Attending Unavailable Koram, Kimmie Geovanna Admitting Unavailable Koram, Kimmie Geovanna Referring Unavailable [facility] Care Unavailable Chuy Manjarrez Consulting Unavailable Jopperi, Rico Consulting Unavailable Koram, Kimmie Geovanna Admitting Unavailable Chuy Manjarrez Attending Unavailable Koram, Kimmie Geovanna Referring Unavailable [facility] Primary Care Unavailable Chuy Manjarrez Consulting Unavailable Aquiles Modi Consulting Unavailable Arlenepplucrecia, Rico Consulting Unavailable Koram, Kimmie Geovanna Admitting Unavailable Rico Tilley Attending Unavailable Koram, Kimmie Geovanna Referring Unavailable [facility] Primary Care Unavailable Chuy Manjarrez Consulting Unavailable RianAquiles miramontes Consulting Unavailable Arlenepplucrecia, Rico Consulting Unavailable Koram, Kimmie Geovanna Admitting Unavailable Aquiles Modi Attending Unavailable Koram, Kimmie Geovanna Referring Unavailable [facility] Primary Care Unavailable Chuy Manjarrez Consulting Unavailable RianAquiles miramontes Consulting Unavailable Jopperi, Rico Consulting Unavailable Koram, Kimmie Geovanna Admitting Unavailable Chuy Manjarrez Attending Unavailable Koram, Kimmie Geovanna Referring Unavailable [facility] Primary Care Unavailable Chuy Manjarrez Consulting Unavailable Rian, Aquiles Consulting Unavailable Sementi, Shelia Consulting Unavailable Koram, Kimmie Geovanna Admitting Unavailable Sementi, Shelia Attending Unavailable Koram, Kimmie Geovanna Referring Unavailable [facility] Care Unavailable Chuy Manjarrez Consulting Unavailable Rian, Aquiles Consulting Unavailable Sementi, Shelia Consulting Unavailable Koram, Kimmie Geovanna Admitting Unavailable Rian, Aqiules Attending Unavailable Koram, Kimmie Geovanna Referring Unavailable [facility] Care Unavailable Chuy Manjarrez Consulting Unavailable Rian, Aquiles Consulting Unavailable Sementi, Shelia Consulting Unavailable Koram, Kimmie Geovanna Admitting Unavailable Rico Tilley Attending Unavailable Koram, Kimmie Geovanna Referring Unavailable [facility] Unavailable Chuy Manjarrez Consulting Unavailable Rian, Aquiles Consulting Unavailable Jopperi, Rico Consulting Unavailable Koram, Kimmie Geovanna Admitting Unavailable Jayme Lino Attending Unavailable Koram, Kimmie Geovanna Referring Unavailable [facility] Unavailable Chuy Manjarrez Consulting Unavailable Iran, Aquiles Consulting Unavailable Jopperi, Rico Consulting Unavailable Koram, Kimmie Geovanna Admitting Unavailable RianAquiles Attending Unavailable Koram, Kimmie Geovanna Referring Unavailable [facility] Unavailable Chuy Manjarrez Consulting Unavailable Rian, Aquiles Consulting Unavailable Jopperi, Rico Consulting Unavailable Koram, Kimmie Geovanna Admitting Unavailable JoriperiRico Attending Unavailable Koram, Kimmie Geovanna Referring Unavailable [facility] Unavailable Chuy Manjarrez Consulting Unavailable Rian, Aquiles Consulting Unavailable Jopperi, Rico Consulting Unavailable Sementi, Shelia Attending Unavailable Koram, Kimmie Geovanna Admitting Unavailable Koram, Kimmie Geovanna Referring Unavailable [facility] Care Unavailable Chuy Manjarrez Consulting Unavailable Rian, Aquiles Consulting Unavailable Jopperi, Rico Consulting Unavailable Koram, Kimmie Geovanna Admitting Unavailable RianAquiles miramontes Attending Unavailable Koram, Kimmie Geovanna Referring Unavailable [facility] Care Unavailable Chuy Manjarrez Consulting Unavailable Rian, Aquiles Consulting Unavailable Jopperi, Rico Consulting Unavailable Ronaldo Mishra Attending Unavailable Koram, Kimmie Geovanna Referring Unavailable Emerald Campos Attending Unavailable [facility] Referring Unavailable Chuy Manjarrez Attending Unavailable Sementi, Shelia Referring Unavailable Emerald Campos Attending Unavailable Andres Emerald Referring Unavailable Harry, Jayme Primary Care Unavailable Chuy Manjarrez Attending Unavailable Rico Tilley Referring Unavailable Vellanki, Marycruz Attending Unavailable Vellanki, Marycruz Referring Unavailable Harry, Jayme Primary Care Unavailable Chuy Manjarrez Attending Unavailable Harry, Jayme Referring Unavailable Vellanki, Marycruz Attending Unavailable Harry, Jayme Primary Care Unavailable Vellanki, Marycruz Attending Unavailable Vellanki, Marycruz Referring Unavailable Harry, Jayme Primary Care Unavailable Sibilia, Devon Consulting Unavailable Sibilia, Devon Attending Unavailable Sibilia, Devon Referring Unavailable Harry, Jayme Primary Care Unavailable Harry, Jayme Attending Unavailable Harry, Jayme Primary Care Unavailable Vellanki, Marycruz Attending Unavailable Vellanki, Marycruz Referring Unavailable Harry, Jayme Primary Care Unavailable Harry, Jayme Primary Care Unavailable Drake Mason Admitting Unavailable Ward Martin Consulting Unavailable Laureano Lima Attending Unavailable Tereletsky, Drake Admitting Unavailable Terviktor, Drake Attending Unavailable Harry, Jayme Primary Care Unavailable [...] Care Unavailable Harry, Jayme Primary Care Unavailable Rojo, [place] Attending Unavailable Harry, Jayme Primary Care Unavailable [...] STATUS SOURCE 10/23/2018 Unknown I48.91 - Unspecified Chyu Manjarrez Active [place] atrial fibrillation / Community I48.91(ICD-10) Hospital Repository 10/23/2018 Unknown I27.20 - Pulmonary Chuy Manjarrez Active [place] hypertension, Community unspecified / Hospital I27.20(ICD-10) Repository 10/23/2018 Unknown E78.5 - Chuy Manjarrez Active [place] Hyperlipidemia, Community unspecified / Hospital E78.5(ICD-10) Repository 10/10/2018 Unknown R06.02 - Shortness of Campos, Active [place] breath / [facility] R06.02(ICD-10) Hospital Repository 10/10/2018 Unknown G47.33 - Obstructive Campos, Active [place] sleep apnea (adult) [facility] (pediatric) / Hospital G47.33(ICD-10) Repository 09/26/2018 Unknown R06.89 - Other Aquiles Modi Active [place] abnormalities of Community breathing / Hospital R06.89(ICD-10) Repository 10/14/2018 Unknown R94.31 - Abnormal Chuy Manjarrez Active [facility] electrocardiogram Community [ECG] [EKG] / Hospital R94.31(ICD-10) Repository 08/14/2018 Unknown N40.0 - Benign Jayme Harry Active [facility] prostatic hyperplasia Community without lower urinary Hospital tract symptoms / Repository N40.0(ICD-10) 06/27/2018 Unknown Z79.899 - Other long Debralanroxy, Active [place] term (current) drug [facility] therapy / Hospital Z79.899(ICD-10) Repository 06/27/2018 Unknown M15.9 - Vellanki, 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, [facility] unspecified / Hospital M15.9(ICD-10) Repository 06/27/2018 Unknown M06.09 - Rheumatoid Debralanroxy, Active [place] arthritis without [facility] rheumatoid factor, Hospital multiple sites / Repository M06.09(ICD-10) 06/27/2018 Unknown K21.0 - Vellanki, Active [place] Gastro-esophageal [facility] reflux disease with Hospital esophagitis / Repository K21.0(ICD-10) 06/27/2018 Unknown M47.897 - Other Vellanki, Active [place] spondylosis, [facility] lumbosacral region / Hospital M47.897(ICD-10) Repository 06/27/2018 Unknown M51.37 - Other Vellanki, Active [place] intervertebral disc [facility] degeneration, Hospital lumbosacral region / Repository M51.37(ICD-10) 06/27/2018 Unknown M47.892 - Other Vellanki, Active [place] spondylosis, cervical [facility] region / Hospital M47.892(ICD-10) Repository 06/27/2018 Unknown K51.80 - Other Vellanki, Active [place] ulcerative colitis [facility] without complications Hospital / K51.80(ICD-10) Repository 06/27/2018 Unknown E11.9 - Type 2 Vellanki, Active [place] diabetes mellitus [facility] without complications Hospital / E11.9(ICD-10) Repository 07/04/2018 Unknown I10 - Essential Chuy Manjarrez Active [place] (primary) hypertension [facility] / I10(ICD-10) Hospital Repository 06/03/2018 Unknown N20.0 - Calculus of Surinder Larson Active [place] kidney / N20.0(ICD-10) [facility] Hospital Repository 06/03/2018 Unknown Z87.442 - Personal Surinder Larson Active [place] history of urinary [facility] calculi / Hospital Z87.442(ICD-10) Repository 11/27/2017 Unknown R06.00 - Dyspnea, Sibilia, Active [place] unspecified / [facility] R06.00(ICD-10) Hospital Repository 11/27/2017 Unknown R60.0 - Localized Sibilia, Active [place] edema / R60.0(ICD-10) [facility] Hospital Repository 10/29/2017 Unknown M06.00 - Rheumatoid Debralanroxy, Active [place] arthritis without [facility] rheumatoid factor, Hospital unspecified site / Repository M06.00(ICD-10) PROCEDURES PROCEDURES No Procedure Records FoundRESULTS RESULTS CARDIOLOGY VISIT Observed: 10/23/2018 Status: F Source: [place] REPORT 11:58 AM COUNTS INCLUDE 234 BEDS AT THE [facility] HOSPITAL REPOSITORY [facility] [address] [place] [address] [address] [place] [address] OFFICE VISIT Date of Service: 10/23/18 MR#: [id number] Acct: [id number] Name: MEGAN HOLLOWAY Rep #: [id number] : 1945 Provider: Chuy Manjarrez MD Age/Sex: 73/M Location: [facility] Status: Signed HPI HPI Chief Complaint: routine f/u Details: The patient is a 73 year old M, with past medical history of diabetes, hypertension, hypercholesterolemia, obstructive sleep apnea, who presented to [facility] on 09/17/2018 secondary to worsening of respiratory [...] well as antihypertensive medications. Patient has a 79-zuid-ssah smoking history. Patient states he is typically [...] Intake Visit Reasons: S/P [facility], SWITCHING FROM [facility] TO N Absorption Operator Required: No Accompanied by: Is patient in [...] ea PO DAILY 09/17/18 [History Confirmed 10/23/18] [place]-3 Fatty Acids/Fish Oil [[place] 3 1,000 mg Softgel] 2,000 mg PO [...] DAILY #30 tab 10/23/18 [Rx Confirmed 10/23/18] [facility] Medical History Essential hypertension (Chronic) Diverticula of [...] poor appetite, anorexia or other (Was in [facility] 09/17-09/25 with sepsis and afib/rvr. Feels much [...] EKG PERFORMED Observed: 10/23/2018 Status: F Source: [place] [facility] 11:42 AM [facility] REPOSITORY [facility] [address] [place] [address] 12 Lead EKG performed by [facility] 10/23/18 1142 MR#: [id number] Acct: [id number] Name: MEGAN HOLLOWAY Rep #: [id number] : 1945 73 From: Chuy Manjarrez MD Attending Dr: Chuy Manjarrez MD Status: DEP AMB Ordering Dr: Chuy Manjarrez MD Date: 10/23/18 [place] [facility] [place]: M C Admitted: [facility]/12 Lead EKG performed by [facility] Sinus Rhythm - (probably not recent) Inferior and Old Anterior -lateral nfarct -Left axis secondary to infarct. ABNORMAL 10/24/18 0909 <Electronically signed by Chuy Manjarrez MD> Date Chuy Manjarrez MD CC: Jayme Harry MD Date Dictated: 10/23/18 1142 Date Transcribed: 10/23/18 114 Data Center Technician: FARZAD Signed PULMONARY FUNCTION Observed: 10/22/2018 Status: F Source: [place] REPORT COMP 6:08 AM [facility] REPOSITORY [facility] Pulmonary Services/Neurology [address] [place] [address] MR#: [id number] Acct: [id number] Name: MEGAN HOLLOWAY Rep #: [id number] : 1945 73 From: Aquiles Modi MD Referring Dr: Emerald Campos NP Status: REG CLI Ordering Dr: Date: Location: [facility] Sex: M C COMPLETE PULMONARY FUNCTION TEST INTERPRETATION Brief HPI: Patient is a 73 year old male, currently under the care of myself, who presents to [facility] for complete pulmonary function tests secondary to [...] Dictated: 10/21/18 1110 Date Transcribed: 10/21/18 111 Data Center Technician: SUDHIR Signed PULMONARY VISIT REPORT Observed: 10/10/2018 Status: F Source: [place] 4:00 PM COUNTS INCLUDE 234 BEDS AT THE [facility] HOSPITAL REPOSITORY [facility] [address] [place] [address] OFFICE VISIT Date of Service: 10/10/18 MR#: [id number] Acct: [id number] Name: MEGAN HOLLOWAY Rep #: [id number] : 1945 Provider: Emerald Campos Age/Sex: 73/M Location: [facility] Status: Signed Assessment AND Plan 1. SUPA [...] aortitis and inflammatory bowel disease by local university demonstrator. 3. Atrial fibrillation with RVR I48.91 Plan [...] Other Orders Orders: Follow Up 6 Weeks ([facility]) [facility] FU: Chief Complaint: Shortness of breath [facility] Comments Details: This is a 73 year old very pleasant M, currently under the care of Jayme Harry MD, here to follow up after a recent hospitalization at [facility], from September 17 - September 25, 2018 [...] 208 lb Intake Visit Reasons: Hospital FU [facility] Vendor: [facility] Medical Accompanied by: Allergies aspirin Allergy (Verified [...] ea PO DAILY 09/17/18 [History Confirmed 10/10/18] [place]-3 Fatty Acids/Fish Oil [[place] 3 1,000 mg Softgel] 1,000 mg PO DAILY 09/17/18 [History Confirmed 10/10/18] [place]-3 Fatty Acids/Fish Oil [[place] 3 1,000 mg Softgel] 2,000 mg PO [...] QHS #30 tab 09/25/18 [Rx Confirmed 10/10/18] [facility] Medical History Diverticula of colon (Chronic) Colitis [...] DISCHARGE SUMMARY Observed: 09/25/2018 Status: F Source: [place] 12:21 PM [facility] REPOSITORY [facility] Medical Records Department [address] [place] [address] Discharge Summary 09/25/18 1217 MR#: [id number] Acct: [id number] Name: MEGAN HOLLOWAY Rep #: [id number] : 1945 73 From: Rico Tilley DO PCP: Jayme Harry MD Status: ADM IN Location: [place] [address] Discharge Date and Diagnosis - Problem List [...] Shad Macias MD at 15:51 EST Tel [phone], Service support , Chest X-Ray 09/21/18 14:53 [...] Men Tablet] 1 each PO DAILY 09/17/18 [place]-3 Fatty Acids/Fish Oil [[place] 3 1,000 mg Softgel] 1,000 mg PO DAILY 09/17/18 [place]-3 Fatty Acids/Fish Oil [[place] 3 1,000 mg Softgel] 2,000 mg PO [...] applicable Code Visit Inpatient E AND M: [id number] Disch Hosp 09/25/18 1221 <Electronically signed by Rico Tilley DO> Date Rico Tilley DO Cosigner Signature (if applicable): Date CC: Rico Tilley DO; Jayme Harry MD Signed DISCHARGE INSTRUCTION Observed: 09/25/2018 Status: F Source: [place] 12:17 PM [facility] REPOSITORY [facility] Medical Records Department [address] [place] [address] Instructions for Home/Discharge Instructions 09/25/18 1212 MR#: [id number] Acct: [id number] Name: MEGAN HOLLOWAY Derrick Rep #: [id number] : 1945 73 From: Rico Tilley DO [...] Men Tablet] 1 each PO DAILY 09/17/18 [place]-3 Fatty Acids/Fish Oil [[place] 3 1,000 mg Softgel] 1,000 mg PO DAILY 09/17/18 [place]-3 Fatty Acids/Fish Oil [[place] 3 1,000 mg Softgel] 2,000 mg PO [...] 09/25/2018 Status: F Source: [place] 11:31 AM [facility] REPOSITORY TYPE CODE TESTS RESULT OUT OF REFERENCE UNITS RANGE LAB L501.080 70-110 mg/dL High BEDSIDE GLU 167 Result Comment: MANAGEMENT OF PATIENT CARE PER NURSING PROTOCOL Performed By: #### L501.080 #### [facility] Point of Care [address] [place] [address] BEDSIDE GLUCOSE Collected: 09/25/2018 Status: F Source: [place] 6:46 AM [facility] REPOSITORY TYPE CODE TESTS RESULT OUT OF REFERENCE UNITS RANGE LAB L501.080 70-110 mg/dL High BEDSIDE GLU 126 Result Comment: MANAGEMENT OF PATIENT CARE PER NURSING PROTOCOL Performed By: #### L501.080 #### [facility] Point of Care [address] [place], [place] [address] BASIC METABOLIC Collected: 09/25/2018 Status: F Source: [place] PROFILE (BMP) 5:30 AM [facility] REPOSITORY TYPE CODE TESTS RESULT OUT OF [...] GAP 9 Performed By: #### L500.2500 #### [facility] [address] [place], [place], [address] CBC W/DIFF, AUTOMATED Collected: 09/25/2018 Status: F Source: [place] 5:30 AM [facility] REPOSITORY TYPE CODE TESTS RESULT OUT OF [...] Lymph 1.52 Performed By: #### L100.0100 #### [facility] [address] [place], [address] BEDSIDE GLUCOSE Collected: 09/24/2018 Status: F Source: [place] 8:59 PM [facility] REPOSITORY TYPE CODE TESTS RESULT OUT OF REFERENCE UNITS RANGE LAB L501.080 70-110 mg/dL High BEDSIDE GLU 304 Result Comment: MANAGEMENT OF PATIENT CARE PER NURSING PROTOCOL Performed By: #### L501.080 #### [facility] Point of Care [address] [place] [address] BEDSIDE GLUCOSE Collected: 09/24/2018 Status: F Source: [place] 5:03 PM [facility] REPOSITORY TYPE CODE TESTS RESULT OUT OF REFERENCE UNITS RANGE LAB L501.080 70-110 mg/dL High BEDSIDE GLU 304 Result Comment: MANAGEMENT OF PATIENT CARE PER NURSING PROTOCOL Performed By: #### L501.080 #### [facility] Point of Care [address] [place] [address] 12 LEAD ELECTROCARDIOGRAM Observed: 09/24/2018 Status: F Source: [place] 2:57 PM [facility] REPOSITORY [facility] Cardiovascular Services [address] [place] [address] 12 Lead EKG 09/19/18 1015 MR#: [id number] Acct: [id number] Name: MEGAN HOLLOWAY Rep #: [id number] : 1945 73 From: Chuy Manjarrez MD [...] DATA IS UNCONFIRMED Confirmed by CHUY MANJARREZ ([id number]), newspaper editor managing MANA MILLER ([id number]) on 09/24/2018 2:57:22 PM Referred By: Kimmie Nur Confirmed By:CHUY MANJARREZ 09/24/18 2194 Date Chuy Manjarrez MD CC: Rico Tilley DO; Kimmie Nur MD; Jayme Harry MD Signed BEDSIDE GLUCOSE Collected: 09/24/2018 Status: F Source: DOM 11:06 AM [facility] REPOSITORY TYPE CODE TESTS RESULT OUT OF REFERENCE UNITS RANGE LAB L501.080 70-110 mg/dL High BEDSIDE GLU 174 Result Comment: MANAGEMENT OF PATIENT CARE PER NURSING PROTOCOL Performed By: #### L501.080 #### [facility] Point of Care [address] [place], [place] [address] CBC W/DIFF, AUTOMATED Collected: 09/24/2018 Status: F Source: DOM 7:02 AM [facility] REPOSITORY TYPE CODE TESTS RESULT OUT OF [...] 2.01 Performed By: #### L100.0100, L500.2500 #### [facility] [address] [place], [place], [address] BASIC METABOLIC Collected: 09/24/2018 Status: F Source: DOM PROFILE (BMP) 7:02 AM [facility] REPOSITORY TYPE CODE TESTS RESULT OUT OF [...] 8 Performed By: #### L100.0100, L500.2500 #### [facility] [address] [facility] [address] [place], [place], [address] BEDSIDE GLUCOSE Collected: 09/24/2018 Status: F Source: [place] 7:01 AM [facility] REPOSITORY TYPE CODE TESTS RESULT OUT OF REFERENCE UNITS RANGE LAB L501.080 70-110 mg/dL High BEDSIDE GLU 111 Result Comment: MANAGEMENT OF PATIENT CARE PER NURSING PROTOCOL Performed By: #### L501.080 #### [facility] Point of Care [address] [place] [address] BEDSIDE GLUCOSE Collected: 09/23/2018 Status: F Source: DOM 9:10 PM [facility] REPOSITORY TYPE CODE TESTS RESULT OUT OF REFERENCE UNITS RANGE LAB L501.080 70-110 mg/dL High BEDSIDE GLU 312 Result Comment: MANAGEMENT OF PATIENT CARE PER NURSING PROTOCOL Performed By: #### L501.080 #### [facility] Point of Care [address] [place] [address] BEDSIDE GLUCOSE Collected: 09/23/2018 Status: F Source: DOM 4:54 PM [facility] REPOSITORY TYPE CODE TESTS RESULT OUT OF REFERENCE UNITS RANGE LAB L501.080 70-110 mg/dL High BEDSIDE GLU 316 Result Comment: MANAGEMENT OF PATIENT CARE PER NURSING PROTOCOL Performed By: #### L501.080 #### [facility] Point of Care [address] [place] [address] BEDSIDE GLUCOSE Collected: 09/23/2018 Status: F Source: DOM 11:25 AM [facility] REPOSITORY TYPE CODE TESTS RESULT OUT OF REFERENCE UNITS RANGE LAB L501.080 70-110 mg/dL High BEDSIDE GLU 363 Result Comment: MANAGEMENT OF PATIENT CARE PER NURSING PROTOCOL Performed By: #### L501.080 #### [facility] Point of Care [address] [place] [address] BEDSIDE GLUCOSE Collected: 09/23/2018 Status: F Source: DOM 6:53 AM [facility] REPOSITORY TYPE CODE TESTS RESULT OUT OF REFERENCE UNITS RANGE LAB L501.080 70-110 mg/dL High BEDSIDE GLU 177 Result Comment: MANAGEMENT OF PATIENT CARE PER NURSING PROTOCOL Performed By: #### L501.080 #### [facility] Point of Care [address] [place] [address] CONSULTATION Observed: 09/23/2018 Status: F Source: DOM 5:33 AM [facility] REPOSITORY [facility] Medical Records Department [address] [place] [address] Consultation 09/22/18 0820 MR#: [id number] Acct: [id number] Name: MEGAN HOLLOWAY Rep #: [id number] : 1945 73 From: Aquiles Modi MD PCP: Jayme Harry MD Status: ADM IN Y Location: [place] [address] Problem List (1) Atrial fibrillation with RVR [...] medical history listed below, who presented to [facility] on 09/17/2018 secondary to worsening of respiratory [...] control options by cardiology. Patient is a [id number] smoking history. Patient states he is typically [...] issues. Code Visit Inpatient E AND M: [id number] Init Hosp L3 09/23/18 0533 <Electronically signed by Aquiles Modi MD> Date Aquiles Modi MD Cosigner Signature (if applicable): Date CC: Aquiles Modi MD; Chuy Manjarrez MD; Kimmie Nur MD; Jayme Harry MD Signed CBC W/DIFF, AUTOMATED Collected: 09/23/2018 Status: F Source: DOM 5:23 AM [facility] REPOSITORY TYPE CODE TESTS RESULT OUT OF [...] Lymph 1.36 Performed By: #### L100.0100 #### [facility] [address] [facility] [place], [address] BASIC METABOLIC Collected: 09/23/2018 Status: F Source: [place] PROFILE (BMP) 5:23 AM [facility] REPOSITORY TYPE CODE TESTS RESULT OUT OF [...] GAP 10 Performed By: #### L500.2500 #### [facility] [address] [place], [address] BEDSIDE GLUCOSE Collected: 09/22/2018 Status: F Source: [place] 4:31 PM [facility] REPOSITORY TYPE CODE TESTS RESULT OUT OF REFERENCE UNITS RANGE LAB L501.080 70-110 mg/dL High BEDSIDE GLU 256 Result Comment: MANAGEMENT OF PATIENT CARE PER NURSING PROTOCOL Performed By: #### L501.080 #### [facility] Point of Care [address] [place], [place] [address] BEDSIDE GLUCOSE Collected: 09/22/2018 Status: F Source: DOM 11:12 AM [facility] REPOSITORY TYPE CODE TESTS RESULT OUT OF REFERENCE UNITS RANGE LAB L501.080 70-110 mg/dL High BEDSIDE GLU 203 Result Comment: MANAGEMENT OF PATIENT CARE PER NURSING PROTOCOL Performed By: #### L501.080 #### [facility] Point of Care [address] [place], [place] [address] BEDSIDE GLUCOSE Collected: 09/22/2018 Status: F Source: DOM 6:50 AM [facility] REPOSITORY TYPE CODE TESTS RESULT OUT OF REFERENCE UNITS RANGE LAB L501.080 70-110 mg/dL High BEDSIDE GLU 149 Result Comment: MANAGEMENT OF PATIENT CARE PER NURSING PROTOCOL Performed By: #### L501.080 #### [facility] Point of Care [address] [place], [place] [id number] CBC W/DIFF, AUTOMATED Collected: 09/22/2018 Status: F Source: DOM 5:44 AM [facility] REPOSITORY TYPE CODE TESTS RESULT OUT OF [...] Lymph 2.90 Performed By: #### L100.0100 #### [facility] [address] [place], [address] BASIC METABOLIC Collected: 09/22/2018 Status: F Source: [place] PROFILE (BMP) 5:44 AM [facility] REPOSITORY TYPE CODE TESTS RESULT OUT OF [...] 12 Performed By: #### L500.2500, L501.5200 #### [facility] [address] [facility] [address] MAGNESIUM Collected: 09/22/2018 Status: F Source: DOM 5:44 AM [facility] REPOSITORY TYPE CODE TESTS RESULT OUT OF RANGE REFERENCE UNITS LAB L501.5200 1.6-2.6 mg/dL Normal MG 2.0 Performed By: #### L500.2500, L501.5200 #### [facility] [id number] BNP,B-TYPE NATRIURETIC Collected: 09/22/2018 Status: F Source: DOM PEPTIDE 5:44 AM [facility] REPOSITORY TYPE CODE TESTS RESULT OUT OF RANGE REFERENCE UNITS LAB L503.6620 0-100 pg/mL High B-TYPE 200.4 CORRINA PEP Performed By: #### L503.6620 #### [facility] [id number] T4 FREE DIRECT Collected: 09/22/2018 Status: F Source: DOM 5:44 AM [facility] REPOSITORY TYPE CODE TESTS RESULT OUT OF RANGE REFERENCE UNITS LAB L506.0400 0.76-1.46 ng/dL Normal T4 FREE 0.88 DIRECT Performed By: #### L506.0400 #### [facility] [address] [facility] [place], [place], [id number] BLOOD GASES BY [facility] Collected: 09/22/2018 Status: F Source: DOM 4:00 AM [facility] REPOSITORY TYPE CODE TESTS RESULT OUT OF [...] ISTAT 96 Performed By: #### L9000.0800 #### [facility] Point of Care [address] [place] [address] BEDSIDE GLUCOSE Collected: 09/21/2018 Status: F Source: [place] 9:24 PM [facility] REPOSITORY TYPE CODE TESTS RESULT OUT OF REFERENCE UNITS RANGE LAB L501.080 70-110 mg/dL High BEDSIDE GLU 264 Result Comment: MANAGEMENT OF PATIENT CARE PER NURSING PROTOCOL Performed By: #### L501.080 #### [facility] Point of Care [address] [place] [address] CHEST WITH CONTRAST Observed: 09/21/2018 Status: F Source: [place] 8:35 PM [facility] REPOSITORY [facility] Imaging Services [address] [place] [address] Chest WITH Contrast MR#: [id number] Acct: [id number] Name: MEGAN HOLLOWAY Rep #: [id number] : 1945 M 73 From: Remy Leary MD PCP: Jayme Harry MD Status: ADM IN Study: Chest WITH Contrast Date of Exam: 09/21/18 Exam# [id number] Ordering Dr: Kimmie Nur MD STUDY: CT [...] CC: Kimmie Nur MD; Jayme Harry MD Data Center Technician: Signed BEDSIDE GLUCOSE Collected: 09/21/2018 Status: F Source: DOM 4:58 PM [facility] REPOSITORY TYPE CODE TESTS RESULT OUT OF REFERENCE UNITS RANGE LAB L501.080 70-110 mg/dL High BEDSIDE GLU 280 Result Comment: Insulin Given MANAGEMENT OF PATIENT CARE PER NURSING PROTOCOL Performed By: #### L501.080 #### [facility] Point of Care [address] [place] [address] CHEST 1 VIEW Observed: 09/21/2018 Status: F Source: DOM (PORTABLE) 2:22 PM [facility] REPOSITORY [facility] Imaging Services [address] [place] [address] Chest 1 View (Portable) MR#: [id number] Acct: [id number] Name: MEGAN HOLLOWAY Rep #: [id number] : 1945 M 73 From: Evin Baldwin MD PCP: Jayme Harry MD Status: ADM IN Study: Chest 1 View (Portable) Date of Exam: 09/21/18 Exam# [id number] Ordering Dr: Margie Hu STUDY: X-RAY CHEST [...] Tel , Service support , CC: TERESE Hu; Jayme Harry MD Data Center Technician: Signed TROPONIN-I Collected: 09/21/2018 Status: F Source: [place] 1:58 PM [facility] REPOSITORY Order Comment: 'TROP' Serial specimen #1, #2 or #3: 3 TYPE CODE TESTS RESULT OUT OF RANGE REFERENCE UNITS LAB L501.4010 <0.045 ng/mL Normal < 0.015 TROPONIN-I Result Comment: TROPONIN-I EXPECTED VALUES <0.045 Negative 0.045 - 0.590 Consistent with Cardiac Damage > OR = 0.600 Critical Value Not every elevated troponin is indicative of LA. These values should be used with clinical judgement in examining the patient's clinical picture for diagnosis. To establish a diagnosis of LA versus myocardial injury, there must be a demonstrated rise and/or fall in the troponin values, in addition to ischemic symptoms, EKG changes, new regional wall motion abnormality, and/or angiographical evidence. PLEASE NOTE: REFERENCE RANGES EDITED 18 Performed By: #### L501.4010 #### [facility] [address] [place], [address] BEDSIDE GLUCOSE Collected: 09/21/2018 Status: F Source: [place] 12:02 PM [facility] REPOSITORY TYPE CODE TESTS RESULT OUT OF REFERENCE UNITS RANGE LAB L501.080 70-110 mg/dL High BEDSIDE GLU 189 Result Comment: MANAGEMENT OF PATIENT CARE PER NURSING PROTOCOL Performed By: #### L501.080 #### [facility] Point of Care [address] [place] [address] TROPONIN-I Collected: 09/21/2018 Status: F Source: [place] 11:15 AM [facility] REPOSITORY Order Comment: 'TROP' Serial specimen #1, #2 or #3: 2 TYPE CODE TESTS RESULT OUT OF RANGE REFERENCE UNITS LAB L501.4010 <0.045 ng/mL Normal 0.020 TROPONIN-I Result Comment: TROPONIN-I EXPECTED VALUES <0.045 Negative 0.045 - 0.590 Consistent with Cardiac Damage > OR = 0.600 Critical Value Not every elevated troponin is indicative of LA. These values should be used with clinical judgement in examining the patient's clinical picture for diagnosis. To establish a diagnosis of LA versus myocardial injury, there must be a demonstrated rise and/or fall in the troponin values, in addition to ischemic symptoms, EKG changes, new regional wall motion abnormality, and/or angiographical evidence. PLEASE NOTE: REFERENCE RANGES EDITED 18 Performed By: #### L501.4010 #### [facility] [address] [place], [address] CONSULTATION Observed: 09/21/2018 Status: F Source: [place] 7:54 AM [facility] REPOSITORY [facility] Medical Records Department [address] [place] [address] Consultation 09/20/18 1436 MR#: [id number] Acct: [id number] Name: MEGAN HOLLOWAY Rep #: [id number] : 1945 73 From: Chuy Manjarrez MD PCP: Jayme Harry MD Status: ADM IN Y Location: [address] Problem List (1) Atrial fibrillation with [...] 2-3 weeks ago after visiting relatives in [place] who also apparently had an upper respiratory tract infection. Patient has had struggles with shortness of breath, wheezing, and was prescribed Augmentin and prednisone by his PCP. When this did not improve, he sought medical attention at [facility] ER on 09/18/18. Chest x-ray in the [...] and 2:48 PM. Code Visit Inpatient SELMA: [id number] Init Hosp L2 09/21/18 0754 <Electronically signed by Chuy Manjarrez MD> Date Chuy Manjarrez MD Cosigner Signature (if applicable): Date CC: Chuy Manjarrez MD; Kimmie Nur MD; Jayme Harry MD Signed BEDSIDE GLUCOSE Collected: 09/21/2018 Status: F Source: [place] 6:51 AM [facility] REPOSITORY TYPE CODE TESTS RESULT OUT OF REFERENCE UNITS RANGE LAB L501.080 70-110 mg/dL High BEDSIDE GLU 170 Result Comment: MANAGEMENT OF PATIENT CARE PER NURSING PROTOCOL Performed By: #### L501.080 #### [facility] [place] [address] CBC W/DIFF, AUTOMATED Collected: 09/21/2018 Status: F Source: [place] 5:19 AM [facility] REPOSITORY TYPE CODE TESTS RESULT OUT OF [...] Lymph 3.26 Performed By: #### L100.0100 #### [facility] [address] [place], [address] BASIC METABOLIC Collected: 09/21/2018 Status: F Source: [place] PROFILE ([facility]) 5:19 AM [facility] REPOSITORY TYPE CODE TESTS RESULT OUT OF [...] GAP 9 Performed By: #### L500.2500 #### [facility] [address] [place], [place], [address] TROPONIN-I Collected: 09/21/2018 Status: F Source: [place] 5:19 AM [facility] REPOSITORY Order Comment: 'TROP' Serial specimen #1, #2 or #3: 1 TYPE CODE TESTS RESULT OUT OF RANGE REFERENCE UNITS LAB L501.4010 <0.045 ng/mL Normal 0.016 TROPONIN-I Result Comment: TROPONIN-I EXPECTED VALUES <0.045 Negative 0.045 - 0.590 Consistent with Cardiac Damage > OR = 0.600 Critical Value Not every elevated troponin is indicative of LA. These values should be used with clinical judgement in examining the patient's clinical picture for diagnosis. To establish a diagnosis of LA versus myocardial injury, there must be a demonstrated rise and/or fall in the troponin values, in addition to ischemic symptoms, EKG changes, new regional wall motion abnormality, and/or angiographical evidence. PLEASE NOTE: REFERENCE RANGES EDITED 18 Performed By: #### L501.4010 #### [facility] [address] [facility] [place], [place], [address] FREE T3 Collected: 09/21/2018 Status: F Source: [place] 5:19 AM [facility] REPOSITORY Order Comment: Comments: add to this morning labs if possible TYPE CODE TESTS RESULT OUT OF RANGE REFERENCE UNITS LAB L501.29629 2.18-3.98 pg/mL Normal FREE T3 2.4 Performed By: #### L501.79334, L506.0400 #### [facility] [address] [place], [address] T4 FREE DIRECT Collected: 09/21/2018 Status: F Source: DOM 5:19 AM [facility] REPOSITORY Order Comment: Comments: add to this morning labs if possible TYPE CODE TESTS RESULT OUT OF RANGE REFERENCE UNITS LAB L506.0400 0.76-1.46 ng/dL Normal T4 FREE 0.96 DIRECT Performed By: #### L501.58800, L506.0400 #### [facility] [address] [place], [address] BEDSIDE GLUCOSE Collected: 09/20/2018 Status: F Source: DOM 9:55 PM [facility] REPOSITORY TYPE CODE TESTS RESULT OUT OF REFERENCE UNITS RANGE LAB L501.080 70-110 mg/dL High BEDSIDE GLU 200 Result Comment: MANAGEMENT OF PATIENT CARE PER NURSING PROTOCOL Performed By: #### L501.080 #### [facility] Point of Care [address] [place] [address] BEDSIDE GLUCOSE Collected: 09/20/2018 Status: F Source: DOM 4:46 PM [facility] REPOSITORY TYPE CODE TESTS RESULT OUT OF REFERENCE UNITS RANGE LAB L501.080 70-110 mg/dL High BEDSIDE GLU 175 Result Comment: MANAGEMENT OF PATIENT CARE PER NURSING PROTOCOL Performed By: #### L501.080 #### [facility] Point of Care [address] [place] [address] ECHOCARDIOGRAM COMPLETE Observed: 09/20/2018 Status: F Source: DOM 3:24 PM [facility] REPOSITORY [facility] Cardiovascular Services [address] [address] Echo Complete 09/20/18 1418 MR#: [id number] Acct: [id number] Name: MEGAN HOLLOWAY Rep #: [id number] : 1945 73 From: Chuy Manjarrez MD [...] PI end-d debra: 175.6 cm/sec TR max debra: 250.3 cm/sec TR max P.1 mmHg Interpretation [...] Dictated: 09/20/18 1418 Date Transcribed: 09/20/18 1524 Data Center Technician: Signed LIPID PROFILE Collected: 09/20/2018 Status: F Source: DOM 3:16 PM [facility] REPOSITORY Order Comment: 'TROP' Serial specimen #1, [...] 42 Performed By: #### L500.4100, L501.4010 #### [facility] [address] [place], [address] TROPONIN-I Collected: 09/20/2018 Status: F Source: [place] 3:16 PM [facility] REPOSITORY Order Comment: 'TROP' Serial specimen #1, #2 or #3: 1 TYPE CODE TESTS RESULT OUT OF RANGE REFERENCE UNITS LAB L501.4010 <0.045 ng/mL Normal < 0.015 TROPONIN-I Result Comment: TROPONIN-I EXPECTED VALUES <0.045 Negative 0.045 - 0.590 Consistent with Cardiac Damage > OR = 0.600 Critical Value Not every elevated troponin is indicative of LA. These values should be used with clinical judgement in examining the patient's clinical picture for diagnosis. To establish a diagnosis of LA versus myocardial injury, there must be a demonstrated rise and/or fall in the troponin values, in addition to ischemic symptoms, EKG changes, new regional wall motion abnormality, and/or angiographical evidence. PLEASE NOTE: REFERENCE RANGES EDITED 18 Performed By: #### L500.4100, L501.4010 #### [facility] [address] [place], [address] BEDSIDE GLUCOSE Collected: 09/20/2018 Status: F Source: [place] 11:58 AM [facility] REPOSITORY TYPE CODE TESTS RESULT OUT OF REFERENCE UNITS RANGE LAB L501.080 70-110 mg/dL High BEDSIDE GLU 271 Result Comment: Insulin Given MANAGEMENT OF PATIENT CARE PER NURSING PROTOCOL Performed By: #### L501.080 #### [facility] Point of Care [address] [place] [address] BEDSIDE GLUCOSE Collected: 09/20/2018 Status: F Source: DOM 6:41 AM [facility] REPOSITORY TYPE CODE TESTS RESULT OUT OF REFERENCE UNITS RANGE LAB L501.080 70-110 mg/dL High BEDSIDE GLU 233 Result Comment: MANAGEMENT OF PATIENT CARE PER NURSING PROTOCOL Performed By: #### L501.080 #### [facility] Point of Care [address] [place] [address] BEDSIDE GLUCOSE Collected: 09/19/2018 Status: F Source: DOM 10:16 PM [facility] REPOSITORY TYPE CODE TESTS RESULT OUT OF REFERENCE UNITS RANGE LAB L501.080 70-110 mg/dL High BEDSIDE GLU 249 Result Comment: MANAGEMENT OF PATIENT CARE PER NURSING PROTOCOL Performed By: #### L501.080 #### [facility] Point of Care [address] [place] [address] BEDSIDE GLUCOSE Collected: 09/19/2018 Status: F Source: DOM 4:36 PM [facility] REPOSITORY TYPE CODE TESTS RESULT OUT OF REFERENCE UNITS RANGE LAB L501.080 70-110 mg/dL High BEDSIDE GLU 194 Result Comment: MANAGEMENT OF PATIENT CARE PER NURSING PROTOCOL Performed By: #### L501.080 #### [facility] Point of Care [address] [place] [address] 12 LEAD ELECTROCARDIOGRAM Observed: 09/19/2018 Status: F Source: DOM 2:06 PM [facility] REPOSITORY [facility] Cardiovascular Services [address] [place] [address] 12 Lead EKG 09/18/18 0546 MR#: [id number] Acct: [id number] Name: MEGAN HOLLOWAY Derrick Rep #: [id number] : 1945 73 From: Ronaldo Mishra MD [...] longer Present Confirmed by RONALDO MISHRA MD ([id number]), newspaper editor managing MANA MILLER ([id number]) on 09/19/2018 2:05:57 PM Referred By: Kimmie Nur Confirmed By:RONALDO MISHRA MD 09/19/18 1406 Date Ronaldo Mishra MD CC: Shelia Sterling; Kimmie Nur MD; Jayme Harry MD Signed 12 LEAD ELECTROCARDIOGRAM Observed: 09/19/2018 Status: F Source: [place] 2:02 PM [facility] REPOSITORY [facility] Cardiovascular Services [address] [place] [address] 12 Lead EKG 09/17/182039 MR#: [id number] Acct: [id number] Name: MEGAN HOLLOWAY Rep #: [id number] : 1945 73 From: Ronaldo Mishra MD Attending Dr: Shelia Sterling Status: ADM IN Ordering Dr: Susan Escobar MD Date: 09/17/18 Location: [facility] Sex: M C Admitted: 09/17/18 Test Reason [...] Abnormal ECG Confirmed by RONALDO MISHRA MD ([id number]), newspaper editor managing MANA MILLER ([id number]) on 09/19/2018 2:01:56 PM Referred By: Kimmie Nur Confirmed By:RONALDO MISHRA MD 09/19/18 1402 Date Ronaldo Mishra MD CC: MD Vickie Escobar; Shelia Sterling; Kimmie Nur MD; Jayme Harry MD Signed BEDSIDE GLUCOSE Collected: 09/19/2018 Status: F Source: DOM 11:34 AM [facility] REPOSITORY TYPE CODE TESTS RESULT OUT OF REFERENCE UNITS RANGE LAB L501.080 70-110 mg/dL High BEDSIDE GLU 241 Result Comment: MANAGEMENT OF PATIENT CARE PER NURSING PROTOCOL Performed By: #### L501.080 #### [facility] Point of Care [address] [place] [address] BEDSIDE GLUCOSE Collected: 09/19/2018 Status: F Source: DOM 7:05 AM [facility] REPOSITORY TYPE CODE TESTS RESULT OUT OF REFERENCE UNITS RANGE LAB L501.080 70-110 mg/dL High BEDSIDE GLU 190 Result Comment: MANAGEMENT OF PATIENT CARE PER NURSING PROTOCOL Performed By: #### L501.080 #### [facility] Point of Care [address] [place] [address] BASIC METABOLIC Collected: 09/19/2018 Status: F Source: DOM PROFILE (BMP) 5:09 AM [facility] REPOSITORY TYPE CODE TESTS RESULT OUT OF [...] GAP 11 Performed By: #### L500.2500 #### [facility] [address] [place], [place], [id number] CBC-COMPLETE BLOOD CNT Collected: 09/19/2018 Status: F Source: DOM NO DIFF 5:09 AM [facility] REPOSITORY TYPE CODE TESTS RESULT OUT OF [...] MPV 11.4 Performed By: #### L100.0500 #### [facility] [address] [place], [place], [id number] MAGNESIUM Collected: 09/19/2018 Status: F Source: DOM 5:09 AM [facility] REPOSITORY TYPE CODE TESTS RESULT OUT OF RANGE REFERENCE UNITS LAB L501.5200 1.6-2.6 mg/dL Normal MG 1.6 Performed By: #### L501.5200, L501.9520 #### [facility] [address] [place], [address] THYROID STIM HORMONE Collected: 09/19/2018 Status: F Source: DOM (TSH) 5:09 AM [facility] REPOSITORY TYPE CODE TESTS RESULT OUT OF RANGE REFERENCE UNITS LAB L501.9520 0.358-3.74 uIU/mL Low TSH 0.22 Performed By: #### L501.5200, L501.9520 #### [facility] [address] [place], [address] BEDSIDE GLUCOSE Collected: 09/18/2018 Status: F Source: DOM 10:22 PM [facility] REPOSITORY TYPE CODE TESTS RESULT OUT OF REFERENCE UNITS RANGE LAB L501.080 70-110 mg/dL High BEDSIDE GLU 180 Result Comment: MANAGEMENT OF PATIENT CARE PER NURSING PROTOCOL Performed By: #### L501.080 #### [facility] Point of Care [address] [place] [address] BEDSIDE GLUCOSE Collected: 09/18/2018 Status: F Source: DOM 4:25 PM [facility] REPOSITORY TYPE CODE TESTS RESULT OUT OF REFERENCE UNITS RANGE LAB L501.080 70-110 mg/dL High BEDSIDE GLU 112 Result Comment: MANAGEMENT OF PATIENT CARE PER NURSING PROTOCOL Performed By: #### L501.080 #### [facility] Point of Care [address] [place] [address] SOFT TISSUE NECK WITH Observed: 09/18/2018 Status: F Source: [place] CONTRAST 2:37 PM [facility] REPOSITORY [facility] Imaging Services [address] [place] [address] Soft Tissue Neck WITH Contrast MR#: [id number] Acct: [id number] Name: MEGAN HOLLOWAY Derrick Rep #: [id number] : 1945 M 73 From: Shad Macias MD PCP: Jayme Harry MD Status: ADM IN Study: Soft Tissue Neck WITH Contrast Date of Exam: 09/18/18 Exam# [id number] Ordering Dr: Margie Hu NP-C STUDY: CT [...] FINDINGS: Normal bilateral parotid glands. Normal bilateral rehabilitation attendant spaces. Normal bilateral parapharyngeal spaces. Normal bilateral [...] Shad Macias MD at 15:51 EST Tel [phone], Service support , CC: TERESE Hu; Jayme Harry MD Data Center Technician: Signed LACTIC ACID Collected: 09/18/2018 Status: F Source: DOM 1:31 PM [facility] REPOSITORY TYPE CODE TESTS RESULT OUT OF REFERENCE UNITS RANGE LAB L503.6005 0.4-2.0 mmol/L High alert LACTIC ACID 4.5 Result Comment: Critical Result(s) Called at: 14:12:46 09/18/2018 by: Ilene fairchild [facility] Performed By: #### L503.6005 #### [facility] [address] [place], [place], [address] BEDSIDE GLUCOSE Collected: 09/18/2018 Status: F Source: DOM 11:20 AM [facility] REPOSITORY TYPE CODE TESTS RESULT OUT OF REFERENCE UNITS RANGE LAB L501.080 70-110 mg/dL High BEDSIDE GLU 200 Result Comment: MANAGEMENT OF PATIENT CARE PER NURSING PROTOCOL Performed By: #### L501.080 #### [facility] Point of Care [address] [place] [address]. [place], [place] [id number] LACTIC ACID Collected: 09/18/2018 Status: F Source: DOM 8:40 AM [facility] REPOSITORY Order Comment: Yes/No query for Sepsis Lactate Rule Y TYPE CODE TESTS RESULT OUT OF REFERENCE UNITS RANGE LAB L503.6005 0.4-2.0 mmol/L High alert LACTIC ACID 4.2 Result Comment: Critical Result(s) Called at: 09:58:51 09/18/2018 by: [facility]ene [facility] Performed By: #### L503.6005 #### [facility] [address] [place], [place], [id number] BEDSIDE GLUCOSE Collected: 09/18/2018 Status: F Source: DOM 6:52 AM [facility] REPOSITORY TYPE CODE TESTS RESULT OUT OF REFERENCE UNITS RANGE LAB L501.080 70-110 mg/dL High BEDSIDE GLU 222 Result Comment: MANAGEMENT OF PATIENT CARE PER NURSING PROTOCOL Performed By: #### L501.080 #### [facility] Point of Care [address] [place], [place] [address] CBC W/DIFF, AUTOMATED Collected: 09/18/2018 Status: F Source: [place] 5:26 AM [facility] REPOSITORY TYPE CODE TESTS RESULT OUT OF [...] Lymph 1.40 Performed By: #### L100.0100 #### [facility] [address] [place], [address] BASIC METABOLIC Collected: 09/18/2018 Status: F Source: [place] PROFILE ([facility]) 5:26 AM [facility] REPOSITORY TYPE CODE TESTS RESULT OUT OF [...] GAP 12 Performed By: #### L500.2500 #### [facility] [address] [place], [address] LACTIC ACID Collected: 09/18/2018 Status: F Source: DOM 5:26 AM [facility] REPOSITORY Order Comment: Yes/No query for Sepsis Lactate Rule Y TYPE CODE TESTS RESULT OUT OF REFERENCE UNITS RANGE LAB L503.6005 0.4-2.0 mmol/L High alert LACTIC ACID 4.3 Result Comment: Critical Result(s) Called at: 06:09:26 09/18/2018 by: Mario Honeycutt RN (U) Performed By: #### L503.6005 #### [facility] [address] [place], [address] HISTORY AND PHYSICAL Observed: 09/18/2018 Status: F Source: [place] EXAM 3:51 AM [facility] REPOSITORY [facility] Medical Records Department [address] [place] [address] History and Physical 09/17/18 2314 MR#: [id number] Acct: [id number] Name: MEGAN HOLLOWAY Rep #: [id number] : 1945 73 From: Kimmie Nur MD PCP: Jayme Harry MD Status: ADM IN Y Location: [address] History of Present Illness Date of Admission: 09/17/18 Chief Complaint: shortness of breath The patient is a 73 year old M with a PMH as listed below. He was admitted with a complaint of worsening shortness of breath, cough and wheezing for the past 2 weeks. Patient went to [place] to visit relatives and says some of [...] Patient elects to be full code. Total mgre-jb-yclx time 17 minutes. Code Visit Inpatient E AND M: 65921 Init Hosp L3 Procedures: 38672 Advncd Care Plan 30 Min 09/18/18 0351 <Electronically signed by Kimmie Nur MD> Date Kimmie Nur MD Cosigner Signature: Date (if applicable) CC: Kimmie Nur MD; Jayme Harry MD Signed LACTIC ACID Collected: 09/18/2018 Status: F Source: DOM 2:00 AM [facility] REPOSITORY TYPE CODE TESTS RESULT OUT OF REFERENCE UNITS RANGE LAB L503.6005 0.4-2.0 mmol/L High alert LACTIC ACID 4.4 Result Comment: Critical Result(s) Called at: 02:40:53 09/18/2018 by: Ramya OLIVEIRA Performed By: #### L503.6005 #### [facility] [address] [place], [place], [id number] URINALYSIS, COMPLETE Collected: 09/18/2018 Status: F Source: [place] 12:50 AM [facility] REPOSITORY Order Comment: Order Date: 09/17/18 How [...] Normal CRYSTAL Performed By: #### L400.0001 #### [facility] [address] [place], [place], [address] Observed: 09/18/2018 Status: F Source: [place] RESPIRATORY PANEL 12:40 AM [facility] MOLECULAR REPOSITORY RP PANEL Normal Reference Range = Not Detected RESULTS CALLED TO MANNY/GARETT 09/18/18 1509 Thu Garcia. Copy of report sent to Infection Control Printer MS#[id number] 09/18/18 2217 DCANNON. ADENOVIRUS Not Detected HUMAN METAPHNEUMO Not [...] 1: RHINOVIRUS Performed By: #### M100.638 #### [facility] [address] [place], [address] BEDSIDE GLUCOSE Collected: 09/18/2018 Status: F Source: [place] 12:34 AM [facility] REPOSITORY TYPE CODE TESTS RESULT OUT OF REFERENCE UNITS RANGE LAB L501.080 70-110 mg/dL High BEDSIDE GLU 154 Result Comment: MANAGEMENT OF PATIENT CARE PER NURSING PROTOCOL Performed By: #### L501.080 #### [facility] Point of Care [address] [place] [address] EMERGENCY DEPARTMENT Observed: 09/17/2018 Status: F Source: [place] SUMMARY 11:37 PM [facility] REPOSITORY [facility] Medical Records Department [address] [place] [address] Emergency Department Summary 09/17/182053 MR#: [id number] Acct: [id number] Name: MEGAN HOLLOWAY Rep #: [id number] : 1945 73 From: Susan Escobar MD [...] at home he has no history of LA PE or DVT his COPD is generally [...] elevated lactate This note was generated with [employer] incation software. It may contain incorrect words, spelling, [...] your Primary Care Provider. Call [facility] ([phone]) or report to the closest Emergency Room. Call 911 if necessary. 09/17/18 2334 <Electronically signed by Susan Escobar MD> Date Susan Escobar MD Cosigner Signature (If Indicated): Date CC: Jayme Harry MD CHEST 1 VIEW Observed: 09/17/2018 Status: F Source: [place] (PORTABLE) 8:04 PM [facility] REPOSITORY [facility] Imaging Services [address] [place], [place] [address] [address] Chest 1 View (Portable) MR#: [id number] Acct: [id number] Name: MEGAN HOLLOWAY Rep #: [id number] : 1945 M 73 From: Estuardo Gotti MD PCP: Jayme Harry MD Status: PRE ER Study: Chest 1 View (Portable) Date of Exam: 09/17/18 Exam# [id number] Ordering Dr: Susan Escobar MD STUDY: X-RAY [...] CC: MD Vickie Escobar; Jayme Harry MD Data Center Technician: Signed COMPREHENSIVE METABOLIC Collected: 09/17/2018 Status: F Source: [facility] 8:00 PM [facility] REPOSITORY TYPE CODE TESTS RESULT OUT OF [...] 14 Performed By: #### L500.4050, L100.0100 #### [facility] [address] [place], [place], [address] CBC W/DIFF, AUTOMATED Collected: 09/17/2018 Status: F Source: [place] 8:00 PM [facility] REPOSITORY TYPE CODE TESTS RESULT OUT OF [...] 3.13 Performed By: #### L500.4050, L100.0100 #### [facility] [address] [place], [address] TROPONIN-I Collected: 09/17/2018 Status: F Source: [place] 8:00 PM [facility] REPOSITORY TYPE CODE TESTS RESULT OUT OF RANGE REFERENCE UNITS LAB L501.4010 <0.045 ng/mL Normal < 0.015 TROPONIN-I Result Comment: TROPONIN-I EXPECTED VALUES <0.045 Negative 0.045 - 0.590 Consistent with Cardiac Damage > OR = 0.600 Critical Value Not every elevated troponin is indicative of LA. These values should be used with clinical judgement in examining the patient's clinical picture for diagnosis. To establish a diagnosis of LA versus myocardial injury, there must be a demonstrated rise and/or fall in the troponin values, in addition to ischemic symptoms, EKG changes, new regional wall motion abnormality, and/or angiographical evidence. PLEASE NOTE: REFERENCE RANGES EDITED 18 Performed By: #### L501.4010 #### [facility] [address] [place], [address] BNP,B-TYPE NATRIURETIC Collected: 09/17/2018 Status: F Source: [place] PEPTIDE 8:00 PM [facility] REPOSITORY TYPE CODE TESTS RESULT OUT OF RANGE REFERENCE UNITS LAB L503.6620 0-100 pg/mL Normal B-TYPE 74.6 CORRINA PEP Performed By: #### L503.6620 #### [facility] [address] [place], [address] LACTIC ACID Collected: 09/17/2018 Status: F Source: [place] 8:00 PM [facility] REPOSITORY Order Comment: Yes/No query for Sepsis Lactate Rule Y TYPE CODE TESTS RESULT OUT OF REFERENCE UNITS RANGE LAB L503.6005 0.4-2.0 mmol/L High alert LACTIC ACID 5.9 Result Comment: Critical Result(s) Called at: 22:14:15 09/17/2018 by: MORENA MOSLEY RN IN ED Performed By: #### L503.6005 #### [facility] [address] [place], [address] Observed: 09/17/2018 Status: F Source: [place] CULTURE, BLOOD (WB) 8:00 PM [facility] REPOSITORY BC No growth in 5 days. Performed By: #### M200.1000 #### [facility] [address], [address] BASIC METABOLIC Collected: 08/14/2018 Status: F Source: [place] PROFILE (BMP) 9:32 AM [facility] REPOSITORY TYPE CODE TESTS RESULT OUT OF [...] 10 Performed By: #### L500.2500, L501.9910 #### [facility] [address] [facility] [place], [address] PSA,TOTAL - ANNUAL Collected: 08/14/2018 Status: F Source: [place] SCREEN 9:32 AM [facility] REPOSITORY TYPE CODE TESTS RESULT OUT OF RANGE REFERENCE UNITS LAB L501.9910 0.00-4.00 ng/mL Normal PSA,TOT 2.38 SCREEN Result Comment: This test was performed using the TPSA assay method for the Remitly chemistry system. Values obtained with different assay methods cannot be used interchangably. When changing PSA assays in the course of monitoring a patient, additional sequential testing should be carried out to confirm baseline values. Performed By: #### L500.2500, L501.9910 #### [facility] [address] [place], [address] CBC W/DIFF, AUTOMATED Collected: 06/27/2018 Status: F Source: [place] 9:09 AM [facility] REPOSITORY TYPE CODE TESTS RESULT OUT OF [...] Lymph 2.68 Performed By: #### L100.0100 #### [facility] [address] [place], [place] [address] [place], [address] COMPREHENSIVE METABOLIC Collected: 06/27/2018 Status: F Source: [facility] 9:09 AM [facility] REPOSITORY TYPE CODE TESTS RESULT OUT OF [...] GAP 6 Performed By: #### L500.4050 #### [facility] [address] [place], [address] 12 LEAD ELECTROCARDIOGRAM Observed: 06/10/2018 Status: F Source: [place] 2:56 PM [facility] REPOSITORY [facility] Cardiovascular Services [address] [place] [address] 12 Lead EKG 06/01/18 0557 MR#: [id number] Acct: [id number] Name: MEGAN HOLLOWAY Rep #: [id number] : 1945 72 From: Chuy Manjarrez MD [...] are now Present Confirmed by CHUY MANJARREZ ([id number]), newspaper editor managing MANA MILLER ([id number]) on 06/10/2018 2:56:47 PM Referred By: REYES Confirmed By:CHUY MANJARREZ 06/10/18 1456 Date Chuy Manjarrez MD CC: Yordan De La Vega MD; Surinder Larson MD; Jayme Harry MD Signed BEDSIDE GLUCOSE Collected: 06/01/2018 Status: F Source: [place] 12:47 PM [facility] REPOSITORY TYPE CODE TESTS RESULT OUT OF REFERENCE UNITS RANGE LAB L501.080 70-110 mg/dL High BEDSIDE GLU 152 Result Comment: Dr Harris Followed MANAGEMENT OF PATIENT CARE PER NURSING PROTOCOL Performed By: #### L501.080 #### [facility] Point of Care [address] [facility] [place] [address] BEDSIDE GLUCOSE Collected: 06/01/2018 Status: F Source: [place] 10:09 AM [facility] REPOSITORY TYPE CODE TESTS RESULT OUT OF REFERENCE UNITS RANGE LAB L501.080 70-110 mg/dL High BEDSIDE GLU 151 Result Comment: MANAGEMENT OF PATIENT CARE PER NURSING PROTOCOL Performed By: #### L501.080 #### [facility] Point of Care [address] [facility] [place] [address] OPERATIVE REPORT Observed: 06/01/2018 Status: F Source: [place] 9:58 AM [facility] REPOSITORY [facility] Medical Records Department [address] [place] [address] Operative Report 06/01/18 0955 MR#: [id number] Acct: [id number] Name: MEGAN HOLLOWAY Rep #: [id number] : 1945 72 From: Surinder Larson MD PCP: Jayme Harry MD Status: ADM YANA Y Location: [place] [address] Problem List (1) Ureteral calculus, right Status: [...] went into the bladder with a 21 Mongolian rigid cystourethroscope, I then cannulated the right ureteral orifice with a wire and then over the wire advanced the balloon dilator then balloon dilated the distal right ureter, I then left the wire in place and at all over the wire advanced and access sheath into the ureter axis sheath was put up [facility] up the ureter. I then pulled the [...] the right kidney it was a 6 Mongolian by 26 cm stent once a stent [...] DISCHARGE INSTRUCTION Observed: 06/01/2018 Status: F Source: [place] 9:11 AM [facility] REPOSITORY [facility] Medical Records Department [address] [place] [address] Instructions for Home/Discharge Instructions 06/01/18908 MR#: [id number] Acct: [id number] Name: MEGAN HOLLOWAY Rep #: [id number] : 1945 72 From: Surinder Larson MD [...] Formula Tablet] 1 dose PO DAILY 07/20/13 [place]-3 Fatty Acids/Fish Oil [Fish Oil 1,000 mg [...] mg PO DAILY #7 capsule 05/31/18 Hydrocodone/Acetaminophen [Wayne 5-325 Tablet] 1 ea PO Q4H PRN PRN 3 Days #10 tab 06/01/18 Phenazopyridine HCl [Pyridium] 100 mg PO TID PRN PRN #14 tab 06/01/18 The following prescriptions were given: Hydrocodone/Acetaminophen [Wayne 5-325 Tablet] 1 ea PO Q4H PRN [...] 06/01/2018 Status: F Source: [place] 9:00 AM [facility] REPOSITORY Patient: MEGAN HOLLOWAY : 1945 (72/M) Acct Num: [id number] Phys: Surinder Larson MD Unit Num: [id number] Loc: MS3 [id number] Specimen: [id number] Received: 06/03/18909 Spec Type: Calculi TISSUES TISSUES: [...] chemical stone analysis. / AM:yamini 06/03/18 CPT: 89081 HEADER OPERATION: Ureteroscopy, retrograde, balloon dilation, basket of stone PRE-OP DIAGNOSIS: Right renal calculi TISSUE SUBMITTED: Calculi for analysis Signed [facility] 06/04/18 <signature on file> Performed By: #### PCALC #### [facility] [address] [place], [address] CALCULI, URINARY W / Collected: 06/01/2018 Status: F Source: [place] PHOTO 9:00 AM [facility] REPOSITORY Order Comment: Comments: COLLECTED IN OR [...] Comment: Physician questions regarding Calculi Analysis contact [facility] at: [phone]. LAB L3650.2800 . Normal COMMENT Comment Result Comment: Calculi report with photograph will follow via computer, mail or turning and beading machine operator delivery. LAB L3650.2900 . Normal Disclaimer Comment Result Comment: This test was developed and its performance characteristics determined by [facility]. It has not been cleared or approved by the Food and Drug Administration. Performed at: [address] [id number] Pharmacy Picking Tech: Sam Hammond MD, Phone: [phone] Performed By: #### L3650.0100 #### [facility] (refer to report for specific site) refer to report for address and phone number BEDSIDE GLUCOSE Collected: 06/01/2018 Status: F Source: [place] 8:34 AM [facility] REPOSITORY TYPE CODE TESTS RESULT OUT OF REFERENCE UNITS RANGE LAB L501.080 70-110 mg/dL High BEDSIDE GLU 111 Result Comment: MANAGEMENT OF PATIENT CARE PER NURSING PROTOCOL Performed By: #### L501.080 #### [facility] [place] [address] [address] HEMOGLOBIN A1C Collected: 06/01/2018 Status: F Source: [place] 5:56 AM [facility] REPOSITORY TYPE CODE TESTS RESULT OUT OF RANGE REFERENCE UNITS LAB L501.9985 4.2-6.3 % High HGB A1C 6.8 Performed By: #### L501.9985 #### [facility] [address] [place], [address] BEDSIDE GLUCOSE Collected: 06/01/2018 Status: F Source: [place] 5:42 AM [facility] REPOSITORY TYPE CODE TESTS RESULT OUT OF REFERENCE UNITS RANGE LAB L501.080 70-110 mg/dL High BEDSIDE GLU 129 Result Comment: MANAGEMENT OF PATIENT CARE PER NURSING PROTOCOL Performed By: #### L501.080 #### [facility] Point of Care [address] [place] [address] EMERGENCY DEPARTMENT Observed: 06/01/2018 Status: F Source: [place] SUMMARY 12:39 AM [facility] REPOSITORY [facility] Medical Records Department [address] [address] Emergency Department Summary 05/31/181953 MR#: [id number] Acct: [id number] Name: MEGAN HOLLOWAY Rep #: [id number] : 1945 72 From: Kip Gauthier MD [...] ulcerative colitis. This note was generated with GoWork[employer] dictation software. It may contain incorrect words, spelling, and punctuation that were not noted in review of the chart prior to signing ED Disposition - Plan for ED Patient: Disposition: Acute Care Hospital [facility] Chief Complaint: Abd Pain What to do if you have Problems For any increased pain, shortness of breath, bleeding, nausea or vomiting, chest pain, or any unexpected problems, contact your Primary Care Provider. Call [facility] ([phone]) or report to the closest Emergency Room. Call 911 if necessary. 06/01/18 0039 <Electronically signed by Kip Gauthier MD> Date Kip Gauthier MD Cosigner Signature (If Indicated): Date CC: Jayme Harry MD HISTORY AND PHYSICAL Observed: 05/31/2018 Status: F Source: [place] EXAM 10:16 PM [facility] REPOSITORY [facility] Medical Records Department [address] [place] [address] History and Physical 05/31/182 MR#: [id number] Acct: [id number] Name: MEGAN HOLLOWAY Rep #: [id number] : 1945 72 From: Surinder Larson MD PCP: Jayme Harry MD Status: ADM YANA Y Location: [place] [address] Problem List (1) Ureteral calculus, right Status: [...] laser/basket of stone and stent. npo at [place] 05/31/18 7136 <Electronically signed by Surinder Larson MD> Date Surinder Larson MD Cosigner Signature: Date (if applicable) CC: Surinder Larson MD; Jayme Harry MD Signed URINALYSIS, COMPLETE Collected: 05/31/2018 Status: F Source: [place] 7:10 PM [facility] REPOSITORY Order Comment: Order Date: 05/31/18 How [...] URINE SEEN Performed By: #### L400.0001 #### [facility] [address] [place], [address] CBC W/DIFF, AUTOMATED Collected: 05/31/2018 Status: F Source: [place] 5:30 PM [facility] REPOSITORY TYPE CODE TESTS RESULT OUT OF [...] Lymph 1.47 Performed By: #### L100.0100 #### [facility] [address] [place], [place], [address] BASIC METABOLIC Collected: 05/31/2018 Status: F Source: [place] PROFILE (BMP) 5:30 PM [facility] REPOSITORY TYPE CODE TESTS RESULT OUT OF [...] Performed By: #### L500.2500, L500.3400, L501.2450 #### [facility] [address] [place], [address] LIVER PROFILE Collected: 05/31/2018 Status: F Source: [place] 5:30 PM [facility] REPOSITORY TYPE CODE TESTS RESULT OUT OF [...] Performed By: #### L500.2500, L500.3400, L501.2450 #### [facility] [address] [place], [address] LIPASE Collected: 05/31/2018 Status: F Source: [place] 5:30 PM [facility] REPOSITORY TYPE CODE TESTS RESULT OUT OF RANGE REFERENCE UNITS LAB L501.2450 73-393 U/L Normal LIPASE 82 Performed By: #### L500.2500, L500.3400, L501.2450 #### [facility] [address] [place], [address] ABDOMEN/PELVIS WITHOUT Observed: 05/31/2018 Status: F Source: [place] CONT 5:21 PM COUNTS INCLUDE 234 BEDS AT THE [facility] REPOSITORY [facility] Imaging Services [address] [place] [address] Abdomen/Pelvis without Cont MR#: [id number] Acct: [id number] Name: MEGAN HOLLOWAY Rep #: [id number] : 1945 M 72 From: Bridget Jackson MD PCP: Jayme Harry MD Status: REG ER Study: Abdomen/Pelvis without Cont Date of Exam: 05/31/18 Exam# [id number] Ordering Dr: Kip Gauthier MD STUDY: CT [...] CC: Jayme Harry MD; Kip Gauthier MD Data Center Technician: Signed EMERGENCY DEPARTMENT Observed: 05/17/2018 Status: F Source: [place] SUMMARY 3:14 PM [facility] REPOSITORY [facility] Medical Records Department [address] [place] [address] Emergency Department Summary 05/17/18 1510 MR#: [id number] Acct: [id number] Name: JEWELMEGAN D Rep #: [id number] : 1945 72 From: [place] Rojo MD [...] diluted bleach This note was generated with GoWorkaBit dictation software. It may contain incorrect words, [...] your Primary Care Provider. Call [facility] ([phone]) or report to the closest Emergency Room. Call 911 if necessary. 05/17/18 1514 <Electronically signed by [place] Rojo MD> Date Dom Rojo MD Cosigner Signature (If Indicated): Date CC: Jayme Harry MD CBC W/DIFF, AUTOMATED Collected: 03/27/2018 Status: F Source: DOM 9:04 AM [facility] REPOSITORY TYPE CODE TESTS RESULT OUT OF [...] Lymph 2.58 Performed By: #### L100.0100 #### [facility] [place], [address] COMPREHENSIVE METABOLIC Collected: 03/27/2018 Status: F Source: DOM ALCALA 9:04 AM [facility] REPOSITORY TYPE CODE TESTS RESULT OUT OF [...] GAP 6 Performed By: #### L500.4050 #### [facility] [address] [place], [address] 12 LEAD ELECTROCARDIOGRAM Observed: 01/24/2018 Status: F Source: DOM 1:03 PM [facility] REPOSITORY [facility] Cardiovascular Services [address] [place] [address] 12 Lead EKG 01/22/18 0900 MR#: [id number] Acct: [id number] Name: MEGAN HOLLOWAY Rep #: [id number] : 1945 72 From: Ronaldo Mishra MD Attending Dr: Laureano Lima MD Status: DIS IN Ordering Dr: Audrey Smith DO Date: 01/22/18 [place] [facility] Sex: M C Admitted: 01/22/18 Test Reason [...] Abnormal ECG Confirmed by RONALDO MISHRA MD ([id number]), newspaper editor managing MANA MILLER ([id number]) on 01/24/2018 1:03:19 PM Referred By: Marycruz Yen Confirmed By:RONALDO MISHRA MD 01/24/18 1303 Date Ronaldo Mishra MD CC: Laureano Lima MD; Jayme Harry MD; Audrey Smith DO Signed BEDSIDE GLUCOSE Collected: 01/24/2018 Status: F Source: DOM 11:17 AM [facility] REPOSITORY TYPE CODE TESTS RESULT OUT OF REFERENCE UNITS RANGE LAB L501.080 70-110 mg/dL High BEDSIDE GLU 289 Result Comment: MANAGEMENT OF PATIENT CARE PER NURSING PROTOCOL Performed By: #### L501.080 #### [facility] Point of Care [address] [place] [address] DISCHARGE SUMMARY Observed: 01/24/2018 Status: F Source: DOM 9:26 AM [facility] Medical Records Department [address] [place] [address] Discharge Summary 01/24/18 0800 MR#: [id number] Acct: [id number] Name: MEGAN HOLLOWAY Rep #: [id number] : 1945 72 From: Laureano Lima MD PCP: Jayme Harry MD Status: ADM IN Y Location: [place] [address] Discharge Date and Diagnosis - Problem List [...] Formula Tablet] 1 dose PO DAILY 07/20/13 [place]-3 Fatty Acids/Fish Oil [Fish Oil 1,000 mg [...] applicable Code Visit Inpatient E AND M: 00153 Disch Hosp 01/24/18 0926 <Electronically signed by Laureano Lima MD> Date Laureano Lima MD Cosigner Signature (if applicable): Date CC: Laureano Lima MD; Jayme Harry MD Signed DISCHARGE INSTRUCTION Observed: 01/24/2018 Status: F Source: DOM 7:59 AM [facility] REPOSITORY [facility] Medical Records Department [address] [place] [address] Instructions for Home/Discharge Instructions 01/24/18 0751 MR#: [id number] Acct: [id number] Name: MEGAN HOLLOWAY Rep #: [id number] : 1945 72 From: Laureano Lima MD [...] Formula Tablet] 1 dose PO DAILY 07/20/13 [place]-3 Fatty Acids/Fish Oil [Fish Oil 1,000 mg [...] DUPLEX UPPER Observed: 01/24/2018 Status: F Source: [facility] 7:42 AM [facility] REPOSITORY [facility] Cardiovascular Services [address] [place] [address] Venous Duplex US, Unilateral 01/22/18 1338 MR#: [id number] Acct: [id number] Name: JEWELMEGAN Derrick Rep #: [id number] : 1945 72 From: Booker Boswell MD [...] Date Dictated: 01/22/18 1338 Date Transcribed: 01/24/18740 Data Center Technician: Signed BEDSIDE GLUCOSE Collected: 01/24/2018 Status: F Source: DOM 6:44 AM [facility] REPOSITORY TYPE CODE TESTS RESULT OUT OF REFERENCE UNITS RANGE LAB L501.080 70-110 mg/dL High BEDSIDE GLU 197 Result Comment: MANAGEMENT OF PATIENT CARE PER NURSING PROTOCOL Performed By: #### L501.080 #### Dom [facility] Point of Care [address] [place] [address] BEDSIDE GLUCOSE Collected: 01/23/2018 Status: F Source: DOM 9:24 PM [facility] REPOSITORY TYPE CODE TESTS RESULT OUT OF REFERENCE UNITS RANGE LAB L501.080 70-110 mg/dL High BEDSIDE GLU 308 Result Comment: MANAGEMENT OF PATIENT CARE PER NURSING PROTOCOL Performed By: #### L501.080 #### [facility] Point of Care [address] [place] [address] BEDSIDE GLUCOSE Collected: 01/23/2018 Status: F Source: DOM 4:39 PM [facility] REPOSITORY TYPE CODE TESTS RESULT OUT OF REFERENCE UNITS RANGE LAB L501.080 70-110 mg/dL High BEDSIDE GLU 219 Result Comment: MANAGEMENT OF PATIENT CARE PER NURSING PROTOCOL Performed By: #### L501.080 #### [facility] Point of Care [address] [place] [address] BEDSIDE GLUCOSE Collected: 01/23/2018 Status: F Source: DOM 11:53 AM [facility] REPOSITORY TYPE CODE TESTS RESULT OUT OF REFERENCE UNITS RANGE LAB L501.080 70-110 mg/dL High BEDSIDE GLU 212 Result Comment: MANAGEMENT OF PATIENT CARE PER NURSING PROTOCOL Performed By: #### L501.080 #### [facility] Point of Care [address] [place] [address] CONSULTATION Observed: 01/23/2018 Status: F Source: DOM 7:02 AM [facility] REPOSITORY [facility] Medical Records Department [address] [place] [address] [place] [address] Consultation 01/23/18 0656 MR#: [id number] Acct: [id number] Name: JEWELMEGAN Derrick Rep #: [id number] : 1945 72 From: Ward Martin DO PCP: Jayme Harry MD Status: ADM IN Y Location: [facility] RE091-1 Reason for Consult Date of Consultation: 01/23/18 [...] 01/23/2018 Status: F Source: DOM 6:21 AM [facility] REPOSITORY TYPE CODE TESTS RESULT OUT OF REFERENCE UNITS RANGE LAB L501.080 70-110 mg/dL High BEDSIDE GLU 237 Result Comment: MANAGEMENT OF PATIENT CARE PER NURSING PROTOCOL Performed By: #### L501.080 #### [facility] Point of Care [address] [place] [address] BEDSIDE GLUCOSE Collected: 01/22/2018 Status: F Source: DOM 9:16 PM [facility] REPOSITORY TYPE CODE TESTS RESULT OUT OF REFERENCE UNITS RANGE LAB L501.080 70-110 mg/dL High BEDSIDE GLU 295 Result Comment: MANAGEMENT OF PATIENT CARE PER NURSING PROTOCOL Performed By: #### L501.080 #### [facility] Point of Care [address] [place] [address] BEDSIDE GLUCOSE Collected: 01/22/2018 Status: F Source: DOM 5:02 PM [facility] REPOSITORY TYPE CODE TESTS RESULT OUT OF REFERENCE UNITS RANGE LAB L501.080 70-110 mg/dL High BEDSIDE GLU 168 Result Comment: MANAGEMENT OF PATIENT CARE PER NURSING PROTOCOL Performed By: #### L501.080 #### [facility] Point of Care [address] [place] [address] HISTORY AND PHYSICAL Observed: 01/22/2018 Status: F Source: [place] EXAM 4:15 PM [facility] REPOSITORY [facility] Medical Records Department [address] [place] [address] History and Physical 01/22/18 1556 MR#: [id number] Acct: [id number] Name: MEGAN HOLLOWAY Derrick Rep #: [id number] : 1945 72 From: Drake Mason DO PCP: Jayme Harry MD Status: ADM IN Location: [facility] [id number] Problem List (1) Cough productive of purulent sputum Status: Acute (2) Left wrist pain Status: Acute History of Present Illness Date of Admission: 01/22/18 Chief Complaint: Cough with yellow sputum production, left wrist pain The patient is a 72 year old M who was seen in the emergency room at [facility] with a chief complaint of a cough [...] exacerbation of COPD-patient will be admitted to [facility], IV Solu-Medrol will be [...] chest Code Visit Inpatient E AND M: 17187 Init Hosp L3 01/22/18 1615 <Electronically signed by Drake Mason DO> Date Drake Mason DO Cosigner Signature: Date (if applicable) CC: Drake Mason DO; Jayme Harry MD Signed WRIST MIN 3 VIEWS Observed: 01/22/2018 Status: F Source: [place] 3:40 PM [facility] REPOSITORY [facility] Imaging Services [address] [place] [address] Wrist min 3 Views MR#: [id number] Acct: [id number] Name: JEWELMEGAN D Rep #: [id number] : 1945 M 72 From: Yong Em MD PCP: Jayme Harry MD Status: ADM IN Study: Wrist min 3 Views Date of Exam: 01/22/18 Exam# [id number] Ordering Dr: Drake Mason DO STUDY: X-RAY [...] CC: Drake Mason DO; Jayme Harry MD Data Center Technician: Signed Observed: 01/22/2018 Status: F Source: [place] RESPIRATORY PANEL 3:05 PM [facility] MOLECULAR REPOSITORY RP PANEL ADENOVIRUS Not Detected [...] acid amplification Performed By: #### M100.638 #### [facility] [address] [place] [address]. [place], [address] EMERGENCY DEPARTMENT Observed: 01/22/2018 Status: F Source: [place] SUMMARY 2:16 PM [facility] REPOSITORY [facility] Medical Records Department [address] [place] [address] Emergency Department Summary 01/22/18 1409 MR#: [id number] Acct: [id number] Name: MEGAN HOLLOWAY Derrick Rep #: [id number] : 1945 72 From: Audrey Smith DO [...] states that he has been seeing his lip of shank cutter for this. Patient also developed discomfort in [...] COPD exacerbation] This note was generated with GoWorka[employer] dictation software. It may contain incorrect words, [...] problems, contact your Primary Care Provider. Call [facility] ([phone]) or report to the closest Emergency Room. Call 911 if necessary. 01/22/18 1416 <Electronically signed by Audrey Smith DO> Date Audrey Smith DO Cosigner Signature (If Indicated): Date CC: Jayme Harry MD CTA CHEST W/WO Observed: 01/22/2018 Status: F Source: [place] CONTRAST 10:41 AM [facility] REPOSITORY [facility] Imaging Services [address] [place] [address] CTA Chest W/WO Contrast MR#: [id number] Acct: [id number] Name: MEGAN HOLLOWAY Rep #: [id number] : 1945 M 72 From: Umair Joyce MD PCP: Jayme Harry MD Status: REG ER Study: CTA Chest W/WO Contrast Date of Exam: 01/22/18 Exam# [id number] Ordering Dr: Audrey Smith DO STUDY: CTA [...] CC: Jayme Harry MD; Audrey Smith DO Data Center Technician: Signed CHEST 1 VIEW Observed: 01/22/2018 Status: F Source: [place] (PORTABLE) 9:24 AM [facility] REPOSITORY [facility] Imaging Services [address] [place] [address] Chest 1 View (Portable) MR#: [id number] Acct: [id number] Name: MEGAN HOLLOWAY Rep #: [id number] : 1945 M 72 From: Celestina Miller MD PCP: Jayme Harry MD Status: REG ER Study: Chest 1 View (Portable) Date of Exam: 01/22/18 Exam# [id number] Ordering Dr: Audrey Smith DO STUDY: X-RAY [...] CC: Jayme Harry MD; Audrey Smith DO Data Center Technician: Signed CBC W/DIFF, AUTOMATED Collected: 01/22/2018 Status: F Source: DOM 9:18 AM [facility] REPOSITORY TYPE CODE TESTS RESULT OUT OF [...] Lymph 2.24 Performed By: #### L100.0100 #### [facility] [address] [place], [place], [address] BASIC METABOLIC Collected: 01/22/2018 Status: F Source: DOM PROFILE (BMP) 9:18 AM [facility] REPOSITORY Order Comment: 'TROP' Serial specimen #1, [...] 8 Performed By: #### L500.2500, L501.4010 #### [facility] [address] [place], [place], [address] TROPONIN-I Collected: 01/22/2018 Status: F Source: DOM 9:18 AM [facility] REPOSITORY Order Comment: 'TROP' Serial specimen #1, #2, #3, or #4: 1 TYPE CODE TESTS RESULT OUT OF RANGE REFERENCE UNITS LAB L501.4010 <0.06 ng/mL Normal < 0.02 TROPONIN-I Result Comment: TROPONIN-I EXPECTED VALUES <0.05 NEGATIVE 0.06 - 0.59 AT RISK OF LA > OR = 0.60 SUGGEST LA Performed By: #### L500.2500, L501.4010 #### [facility] [address] [place], [address] BNP,B-TYPE NATRIURETIC Collected: 01/22/2018 Status: F Source: DOM PEPTIDE 9:18 AM [facility] REPOSITORY TYPE CODE TESTS RESULT OUT OF RANGE REFERENCE UNITS LAB L503.6620 0-100 pg/mL Normal B-TYPE 49.6 CORRINA PEP Performed By: #### L503.6620 #### [facility] [address] [place], [address] D-DIMER QUANTITATIVE Collected: 01/22/2018 Status: F Source: DOM (DVT/PE) 9:10 AM [facility] REPOSITORY Order Comment: CRITICAL VALUE VERIFIED. CALLED TO [facility] 01/22/18 1038 Kaye Alcantara. RESULTS READ BACK BY same . TYPE CODE TESTS RESULT OUT OF RANGE REFERENCE UNITS LAB L300.8000 0.27-0.49 FEU/ug/m High alert D-DIMER 0.90 QUANT Result Comment: D-Dimer ELEVATED (>0.49): Additional studies and clinical assessments are indicated to conclude diagnosis of: Deep Vein Thrombosis (DVT) or Pulmonary Embolism (PE) Performed By: #### L300.8000 #### [facility] [address] [place], [place], [address] CHEST PA AND LATERAL Observed: 12/05/2017 Status: F Source: DOM 11:13 AM [facility] REPOSITORY [facility] Imaging Services [address] [place] [address] Chest PA and Lateral MR#: [id number] Acct: [id number] Name: MEGAN HOLLOWAY Rep #: [id number] : 1945 M 72 From: Eligio King MD PCP: Jayme Harry MD Status: REG CLI Study: Chest PA and Lateral Date of Exam: 12/05/17 Exam# [id number] Ordering Dr: Jayme Harry MD STUDY: X-RAY [...] Service support , CC: Jayme Harry MD Data Center Technician: Signed VENOUS DUPLEX LOWER Observed: 11/27/2017 Status: F Source: [place] EXTREMITY 8:23 PM [facility] REPOSITORY [facility] Cardiovascular Services [address] [place] [address] Venous Duplex - Aleksander Extrem 11/27/17 1358 MR#: [id number] Acct: [id number] Name: MEGAN HOLLOWAY Rep #: [id number] : 1945 72 From: Booker Boswell MD [...] called and/or faxed to DR. Lange @ [phone] @ 2:30 pm. Interpretation Summary Deep veins [...] Date Dictated: 11/27/17 1358 Date Transcribed: 11/27/172021 Data Center Technician: Signed BNP,B-TYPE NATRIURETIC Collected: 11/26/2017 Status: F Source: DOM PEPTIDE 7:33 AM [facility] REPOSITORY TYPE CODE TESTS RESULT OUT OF RANGE REFERENCE UNITS LAB L503.6620 0-100 pg/mL Normal B-TYPE 31.1 CORRINA PEP Performed By: #### L503.6620 #### [facility] [address] [place], [address] D-DIMER QUANTITATIVE Collected: 11/26/2017 Status: F Source: DOM (DVT/PE) 7:33 AM [facility] REPOSITORY Order Comment: CRITICAL VALUE VERIFIED. CALLED [...] Embolism (PE) Performed By: #### L300.8000 #### [facility] [address] [place], [place], [address] CBC W/DIFF, AUTOMATED Collected: 10/29/2017 Status: F Source: DOM 6:06 AM [facility] REPOSITORY TYPE CODE TESTS RESULT OUT OF [...] Lymph 3.74 Performed By: #### L100.0100 #### [facility] [address] [place], [address] COMPREHENSIVE METABOLIC Collected: 10/29/2017 Status: F Source: [facility] 6:06 AM [facility] REPOSITORY TYPE CODE TESTS RESULT OUT OF [...] GAP 10 Performed By: #### L500.4050 #### [facility] [address] [place], [address] ALLERGIES ALLERGIES DATE TYPE / CODE NAME / CODE REACTION SEVERITY SOURCE 10/22/2018 Drug morphine/F00 UNABLE TO [facility] Allergy/4160 0004222([place] 0458602(SNOMED ) Repository CT) 10/22/2018 Drug aspirin/F006 Mouth swelling [facility] Allergy/4160 811218(Formerly [facility] [address](SNOMED M) Repository CT) ENCOUNTERS ENCOUNTERS ADMIT/DISCHARGE ACCOUNT ADMITTING ENCOUNTER LOCATION SOURCE NUMBER CLASS 10/23/2018/ [id number] Ambulatory BMSBuilding:B [place] 9 9 [place] [facility] Repository 10/21/2018 [id number] Ambulatory Dom Dom 8 [facility] ing:PSN Repository 10/17/2018 [id number] Ambulatory Dom [place] 9 [facility] ing:MEDOUTP Repository 10/10/2018/ [id number] Ambulatory BMSBuilding:B [place] 9 7 [place] [facility] Repository 09/25/2018 [id number] Ambulatory [place] 5 [facility] ing:MEDOUTP Repository 09/17/2018/ [id number] Koram, Kimmie Inpatient Dom Dom 8 0 [place] Encounter [facility] ing:PCURoom: Repository [id number]: 1 09/17/2018 [id number] Koram, Kimmie Ambulatory BMSBuilding:B [place] 7 [place].[facility] Repository 09/17/2018 [id number] Koram, Kimmie Ambulatory BMSBuilding:B Dom 8 [place].[facility] Repository 09/17/2018 [id number] Koram, Kimmie Ambulatory BMSBuilding:B [place] 4 [place].[facility] Repository 09/17/2018 [id number] Koram, Kimmie Ambulatory BMSBuilding:B Dom 5 [place] MS..[facility] Repository 09/17/2018 [id number] Koram, Kimmie Ambulatory BMSBuilding:B Dom 8 [place].[facility] Repository 09/17/2018 [id number] Koram, Kimmie Ambulatory BMSBuilding:B Dom 3 [place] MS.CF.[facility] Repository 09/17/2018 [id number] Koram, Kimmie Ambulatory BMSBuilding:B Dom 6 [place].[facility] Repository 09/17/2018 [id number] Koram, Kimmie Ambulatory BMSBuilding:B Dom 4 [place] [place] 09/17/2018 [id number] Koram, Kimmie Ambulatory BMSBuilding:B Dom 1 [place] MS.CF.[facility] Repository 09/17/2018 [id number] Koram, Kimmie Ambulatory BMSBuilding:B [place] 6 [place].[facility] Repository 09/17/2018 [id number] Koram, Kimmie Ambulatory BMSBuilding:B [place] 9 [place] [place] 09/17/2018 [id number] Koram, Kimmie Ambulatory BMSBuilding:B [place] 9 [place].[facility] Repository 09/17/2018 [id number] Koram, Kimmie Ambulatory BMSBuilding:B Dom 6 [place] MS.CF.[facility] Repository 09/17/2018 [id number] Kimmie Nur Ambulatory BMSBuilding:B Dom 6 [place] [facility] Hospital Repository 09/17/2018 [id number] Kimmie Nur Ambulatory BMSBuilding:B Dom 8 [place] MS.[facility] Hospital Repository 09/17/2018 [id number] Boom Kimmie Ambulatory BMSBuilding:B Dom 1 [place].[facility] Hospital Repository 09/17/2018 [id number] Boom Kimmie Ambulatory BMSBuilding:B Dom 2 [place] MS.CF.Critical access hospital Hospital Repository 09/17/2018 [id number] Ambulatory BMSBuilding:W Dom 8 [facility] Hospital Repository 09/17/2018/ [id number] Ambulatory BMSBuilding:W Dom 8 1 [facility] Hospital Repository 09/17/2018/ [id number] Ambulatory BMSBuilding:W [place] 8 6 [facility] Hospital Repository 08/14/2018 [id number] Ambulatory [place] 1 [facility] Hospital[facility] Hospital ing:MFPLAB Repository 08/04/2018 [id number] Ambulatory [place] 1 [facility] Hospital ing:MEDOUTP Repository 06/27/2018 [id number] Ambulatory [place] 3 [facility] Hospital ing:LAB Repository 06/16/2018 [id number] Ambulatory [place] 0 [facility] Hospital ing:MEDOUTP Repository 06/01/2018 [id number] Ambulatory BMSBuilding:W Dom 0 [facility] Hospital Repository 05/31/2018/ [id number] Surinder Larson Ambulatory Dom [place] 8 8 [facility] Hospital[facility] Hospital ing:HD0Kdty: Repository [id number]: 1 05/17/2018/ [id number] Emergency Dom [place] 8 2 [facility] Hospital ing:ED Repository 04/29/2018 [id number] Ambulatory [place] 0 [facility] Hospital ing:MEDOUTP Repository 04/28/2018 [id number] Ambulatory Dom [place] 2 [facility] Hospital ing:MEDOUTP Repository 03/27/2018 [id number] Ambulatory [place] Dom 6 [facility] ing:MTLAB Repository 03/11/2018 [id number] Ambulatory Dom [place] 4 [facility] ing:MEDOUTP Repository 01/22/2018/ [id number] Marlon, Inpatient Dom Dom 8 5 Drake Encounter [facility] ing:RT6Hrnq: Repository [id number]: 1 01/22/2018 [id number] Marlon, Ambulatory BMSBuilding:B Dom 6 [place].[facility] Repository 01/22/2018 [id number] Cinthyaeletsky, Ambulatory BMSBuilding:B [place] 8 [place].[facility] Repository 01/22/2018 [id number] Cinthyaeletskaleb, Ambulatory BMSBuilding:B Dom 6 Drake [place].[facility] Repository 01/21/2018 [id number] Ambulatory Dom Dom 5 [facility] ing:MEDOUTP Repository 12/05/2017 [id number] Ambulatory Dom Dom 7 [facility] ing:MTRAD Repository 11/27/2017 [id number] Ambulatory [place] 4 [facility] ing:CVS Repository 11/26/2017 [id number] Ambulatory [place] Dom 9 [facility] ing:MEDOUTP Repository 10/29/2017 [id number] Ambulatory Dom [place] 7 [facility] ing:LAB Repository PAYERS PAYERS ENCOUNTER GUARANTOR PAYER SUBSCRIBER SOURCE 10/23/2018 MEGAN Meza Primary MEGAN D [place] [id number] [place] Insurance:[facility]: [facility] FÉLIX, PART A olic [id number] [address]Tqs: Number: Repository [id number] () Date:2018-09-29 10/23/2018 Secondary MEGAN Fernandes Insurance:MICHAELverónica DAMON: [facility] Number: [id number] Hospital [id number] Repository Date:7547-04-93[address], [place] [address]DH: 10/23/2018 Tertiary NOT GIVENUNK Dom Insurance:SELF PAY [facility] Number: Effective Repository Date:2018-10-23 10/21/2018 MEGAN D Primary MEGAN D Dom [id number] [place] Insurance:MEDICARE MARTINDOB: [facility], PART A [facility] [id number] [address]Aik: Number: Repository [id number] (HP) Date:2018-10-10 10/21/2018 Secondary MEGAN D [place] Insurance:AARPPolicy JEWELDOB: Community Number: [id number] [id number] Repository Date:6653-97-17[address], [place] [address]NB: 10/21/2018 Tertiary NOT GIVENUNK Dom Insurance:SELF PAY [facility] Number: Effective Repository Date:2018-10-10 10/17/2018 MEGAN D Primary MEGAN D [place] [id number] [place] Insurance:MEDICARE FOLEYDOB: [facility], PART A [facility] [id number] Hospital [address]Ybm: Number: Repository [id number] (HP) Date:2018-10-14 10/17/2018 Secondary MEGAN D [place] Insurance:AARPPolicisaura URIASB: Community Number: [id number] [id number] Repository Date:[id number], [place] [address]IT: 10/17/2018 Tertiary NOT GIVENUNK Dom Insurance:SELF PAY [facility] Number: Effective Repository Date:2018-10-14 10/10/2018 MEGAN D Primary MEGAN D Dom [id number] [place] Insurance:MEDICARE FOLEYDOB: [facility] PART A [facility] [id number] [address]Esq: Number: Repository [id number] (HP) Date:2018-09-25 10/10/2018 Secondary MEGAN D [place] Insurance:AARPPolicy JEWELDOB: Community Number: [id number] [facility] [id number] Repository Date:8068-16-29[address], [place] [address]EB: 10/10/2018 Tertiary NOT GIVENUNK Dom Insurance:SELF PAY [facility] Number: Effective Repository Date:2018-10-07 09/25/2018 MEGAN D Primary MEGAN D Dom [id number] [place] Insurance:MEDICARE MARTINDOB: [facility], PART [facility] [id number] Hospital [address]93Rna: Number: Repository [id number] (HP) Date:2018-08-04 09/25/2018 Secondary MEGAN D [place] Insurance:AARPPolicy FOLEYDOB: Community Number: [id number] Hospital [id number] Repository Date:6066-90-88RR [address], [place] [address]UL: 09/25/2018 Tertiary NOT GIVENUNK [place] Insurance:SELF PAY [facility] Number: Effective Repository Date:2018-08-04 09/17/2018 MEGAN D Primary MEGAN D [place] [id number] [place] Insurance:MEDICARE MARTINDOB: [facility] [id number] Hospital 73397Efz: Number: Repository [id number] (HP) Date:2018-09-17 09/17/2018 Secondary MEGAN D Dom Insurance:AARPPolicy JEWELDOB: Community Number: [id number] Hospital [id number] Repository Date:5127-72-58SD [address], [place] [address]ST: 09/17/2018 Tertiary NOT GIVENUNK Dom Insurance:SELF PAY [facility] Number: Effective Repository Date:2018-09-17 09/17/2018 MEGAN D Primary MEGAN D [place] [id number] [place] Insurance:MEDICARE FOLEYDOB: [facility] [id number] Hospital 81563Zua: Number: Repository [id number] (HP) Date:2018-09-17 09/17/2018 Secondary MEGAN D Dom Insurance:AARPPolicy JEWELDOB: Community Number: [id number] [facility] [id number] Repository Date:3617-51-19AD [address]RD, [place] [address]NH: 09/17/2018 Tertiary NOT GIVENUNK Dom Insurance:SELF PAY [facility] Number: Effective Repository Date:2018-09-17 09/17/2018 MEGAN D Primary MEGAN D Dom [id number] [place] Insurance:MEDICARE MARTINDOB: [facility] [id number] Hospital [address]Pbu: Number: Repository [id number] (HP) Date:2018-09-17 09/17/2018 Secondary MEGAN D [place] Insurance:AARPPolicy JEWELDOB: Community Number: [id number] Hospital [id number] Repository Date:6635-39-51LR [address], [place] [address]IL: 09/17/2018 Tertiary NOT GIVENUNK [place] Insurance:SELF PAY [facility] Number: Effective Repository Date:2018-09-17 09/17/2018 MEGAN D Primary MEGAN D [place] [id number] [place] Insurance:MEDICARE MARTINDOB: [facility], [facility] [id number] Hospital 25630Yss: Number: Repository [id number] (HP) Date:2018-09-17 09/17/2018 Secondary MEGAN D [place] Insurance:AARPPolicy JEWELDOB: Community Number: [id number] Hospital [id number] Repository Date:5839-75-53GY [address], [place] [address]CV: 09/17/2018 Tertiary NOT GIVENUNK [place] Insurance:SELF PAY [facility] Number: Effective Repository Date:2018-09-17 09/17/2018 MEGAN D Primary MEGAN D [place] [id number] [place] Insurance:MEDICARE MARTINDOB: [facility] [id number] Hospital 79157Gjo: Number: Repository [id number] (HP) Date:2018-09-17 09/17/2018 Secondary MEGAN D [place] Insurance:AARPPolicy JEWELDOB: Community Number: [id number] Hospital [id number] Repository Date:9811-25-31KG [address], [place] [address]FY: 09/17/2018 Tertiary NOT GIVENUNK Dom Insurance:SELF PAY [facility] Number: Effective Repository Date:2018-09-17 09/17/2018 MEGAN D Primary MEGAN D Dom [id number] [place] Insurance:MEDICARE MARTINDOB: [facility] [id number] Hospital 99168Rlw: Number: Repository [id number] (HP) Date:2018-09-17 09/17/2018 Secondary MEGAN D [place] Insurance:AARPPolicisaura HOLLOWAYDOB: Community Number: [id number] [facility] [id number] Repository Date:7861-52-52NE [facility] [address], [place] [address]JL: 09/17/2018 Tertiary NOT GIVENUNK [place] Insurance:SELF PAY [facility] Number: Effective Repository Date:2018-09-17 09/17/2018 MEGAN D Primary MEGAN D Dom [id number] [place] Insurance:MEDICARE MARTINDOB: [facility] [id number] Hospital 34026Hql: Number: Repository [id number] (HP) Date:2018-09-17 09/17/2018 Secondary MEGAN D Dom Insurance:AARPPolicy JEWELDOB: Community Number: [id number] Hospital [id number] Repository Date:3350-77-24AG [address], [place] [address]UD: 09/17/2018 Tertiary NOT GIVENUNK [place] Insurance:SELF PAY [facility] Number: Effective Repository Date:2018-09-17 09/17/2018 MEGAN D Primary MEGAN D [place] [id number] [place] Insurance:MEDICARE FOLEYDOB: [facility] [id number] Hospital 25476Pgm: Number: Repository [id number] (HP) Date:2018-09-17 09/17/2018 Secondary MEGAN D Dom Insurance:AARPPolicy [facility] Number: [id number] Hospital [id number] Repository Date:9847-15-93WS [facility] 567884TTDZKPJ, [place] [address]JS: 09/17/2018 Tertiary NOT GIVENUNK [place] Insurance:SELF PAY [facility] Hospital Number: Effective Repository Date:2018-09-17 09/17/2018 MEGAN D Primary MEGAN D [place] [id number] [place] Insurance:MEDICARE MARTINDOB: [facility] [id number] Hospital 92311Eua: Number: Repository [id number] (HP) Date:2018-09-17 09/17/2018 Secondary MEGAN D [place] Insurance:AARPPolicy FOLEYDOB: Community Number: [id number] Hospital [id number] Repository Date:3304-04-98UA [address]NMYWVVX, [place] [address]HO: 09/17/2018 Tertiary NOT GIVENUNK [place] Insurance:SELF PAY [facility] Number: Effective Repository Date:2018-09-17 09/17/2018 MEGAN D Primary MEGAN D [place] [id number] [place] Insurance:MEDICARE FOLEYDOB: [facility] [id number] Hospital 73997Wca: Number: Repository [id number] (HP) Date:2018-09-17 09/17/2018 Secondary MEGAN D [place] Insurance:AARPPolicy BRIDGETTB: Community Number: [id number] Hospital [id number] Repository Date:3321-21-89IS [address]NI, [place] [address]UF: 09/17/2018 Tertiary NOT GIVENUNK Dom Insurance:SELF PAY [facility] Number: Effective Repository Date:2018-09-17 09/17/2018 MEGAN D Primary MEGAN D Dom [id number] [place] Insurance:MEDICARE JEWELDOB: [facility] [id number] Hospital 62300Brw: Number: Repository [id number] (HP) Date:2018-09-17 09/17/2018 Secondary MEGAN D [place] Insurance:AARPPolicy JEWELDOB: Community Number: [id number] Hospital [id number] Repository Date:2486-21-19DU [address], [place] [address]IQ: 09/17/2018 Tertiary NOT GIVENUNK [place] Insurance:SELF PAY [facility] Number: Effective Repository Date:2018-09-17 09/17/2018 MEGAN D Primary MEGAN D [place] [id number] [place] Insurance:MEDICARE MARTINDOB: [facility] [id number] Hospital 60003Jgv: Number: Repository [id number] (HP) Date:2018-09-17 09/17/2018 Secondary MEGAN D [place] Insurance:AARPPolicy JEWELDOB: Community Number: [id number] Hospital [id number] Repository Date:1835-22-56RT [address]GSY, [place] [address]AB: 09/17/2018 Tertiary NOT GIVENUNK Dom Insurance:SELF PAY [facility] Number: Effective Repository Date:2018-09-17 09/17/2018 MEGAN D Primary MEGAN D [place] [id number] [place] Insurance:MEDICARE MARTINDOB: [facility] [id number] Hospital 45379Tco: Number: Repository [id number] (HP) Date:2018-09-17 09/17/2018 Secondary MEGAN D Dom Insurance:AARPPolicy JEWELDOB: Community Number: [id number] Hospital [id number] Repository Date:3775-76-82AP [facility] [address]LR[place]P, [place] [address]LU: 09/17/2018 Tertiary NOT GIVENUNK [place] Insurance:SELF PAY [facility] Number: Effective Repository Date:2018-09-17 09/17/2018 MEGAN D Primary MEGAN D Dom [id number] [place] Insurance:MEDICARE MARTINDOB: [facility] PART [facility] [id number] Hospital 83861Dll: Number: Repository [id number] (HP) Date:2018-09-17 09/17/2018 Secondary MEGAN D Dom Insurance:AARPPolicy JEWELDOB: Community Number: [id number] Hospital [id number] Repository Date:6352-72-64IR [facility] 577702FPPJLCC, [place] [address]WO: 09/17/2018 Tertiary NOT GIVENUNK [place] Insurance:SELF PAY [facility] Number: Effective Repository Date:2018-09-17 09/17/2018 MEGAN D Primary MEGAN D Dom [id number] [place] Insurance:MEDICARE MARTINDOB: [facility] PART [facility] [id number] Hospital 38596Exi: Number: Repository [id number] (HP) Date:2018-09-17 09/17/2018 Secondary MEGAN D [place] Insurance:AARPPolicy MARTINDOB: Community Number: [id number] Hospital [id number] Repository Date:5319-77-28SI [address], [place] [address]PH: 09/17/2018 Tertiary NOT GIVENUNK Dom Insurance:SELF PAY [facility] Number: Effective Repository Date:2018-09-17 09/17/2018 MEGAN D Primary MEGAN D [place] [id number] [place] Insurance:MEDICARE MARTINDOB: [facility] PART [facility] [id number] Hospital 46085Rax: Number: Repository [id number] (HP) Date:2018-09-17 09/17/2018 Secondary MEGAN D Dom Insurance:AARPPolicy [facility] Community Number: [id number] Hospital [id number] Repository Date:9113-40-09WX [facility] [address]OU[place]R, [place] [address]HE: 09/17/2018 Tertiary NOT GIVENUNK Dom Insurance:SELF PAY [facility] Hospital Number: Effective Repository Date:2018-09-17 09/17/2018 MEGAN D Primary MEGAN D Dom [id number] [place] Insurance:MEDICARE MARTINDOB: [facility] [id number] Hospital 89639Jbl: Number: Repository [id number] (HP) Date:2018-09-17 09/17/2018 Secondary MEGAN D Dom Insurance:AARPPolicy JEWELB: Community Number: [id number] Hospital [id number] Repository Date:6582-51-03PE [address], [place] [address]NS: 09/17/2018 Tertiary NOT GIVENUNK [place] Insurance:SELF PAY [facility] Number: Effective Repository Date:2018-09-17 09/17/2018 MEGAN D Primary MEGAN D Dom [id number] [place] Insurance:MEDICARE MARTINDOB: [facility] PART [facility] [id number] Hospital 69805Lnh: Number: Repository [id number] (HP) Date:2018-09-17 09/17/2018 Secondary MEGAN D Dom Insurance:AARPPolicy JEWELDOB: Community Number: [id number] Hospital [id number] Repository Date:3700-30-20PW [address], [place] [address]VY: 09/17/2018 Tertiary NOT GIVENUNK Dom Insurance:SELF PAY [facility] Number: Effective Repository Date:2018-09-17 09/17/2018 MEGAN D Primary MEGAN D [place] [id number] [place] Insurance:MEDICARE MARTINDOB: [facility] [id number] Hospital 38595Nwx: Number: Repository [id number] (HP) Date:2018-09-17 09/17/2018 Secondary MEGAN D Dom Insurance:AARPPolicy JEWELB: Community Number: [id number] Hospital [id number] Repository Date:9996-71-32PQ [address]OP[place]EQ, [place] [address]UB: 09/17/2018 Tertiary NOT GIVENUNK Dom Insurance:SELF PAY [facility] Number: Effective Repository Date:2018-09-17 09/17/2018 MEGAN D Primary MEGAN D [place] [id number] [place] Insurance:MEDICARE MARTINDOB: [facility] [id number] Hospital 56823Rsq: Number: Repository [id number] (HP) Date:2018-09-17 09/17/2018 Secondary MEGAN D [place] Insurance:AARPPolicy JEWELDOB: Community Number: [id number] Hospital [id number] Repository Date:0525-16-93ZU [address]BM, [place] [address]JQ: 09/17/2018 Tertiary NOT GIVENUNK Dom Insurance:SELF PAY [facility] Number: Effective Repository Date:2018-09-17 09/17/2018 MEGAN D Primary MEGAN D Dom [id number] [place] Insurance:MEDICARE MARTINDOB: [facility] PART [facility] [id number] Hospital 64910Kxh: Number: Repository [id number] (HP) Date:2018-09-17 09/17/2018 Secondary MEGAN D [place] Insurance:AARPPolicy FOLEYDOB: Community Number: [id number] Hospital [id number] Repository Date:5513-95-32TR [facility] [address]OJPDHJJ, [place] [address]YH: 09/17/2018 Tertiary NOT GIVENUNK [place] Insurance:SELF PAY [facility] Number: Effective Repository Date:2018-09-17 08/14/2018 MEGAN D Primary MEGAN D [place] [id number] [place] Insurance:MEDICARE MARTINDOB: [facility] [id number] Hospital 46398Zyy: Number: Repository [id number] (HP) Date:2018-08-14 08/14/2018 Secondary MEGAN D Dom Insurance:AARPPolicy JEWELDOB: Community Number: [id number] Hospital [id number] Repository Date:2535-57-02YD [address]SRQYZLY, [place] [address]NN: 08/14/2018 Tertiary NOT GIVENUNK [place] Insurance:SELF PAY [facility] Number: Effective Repository Date:2018-08-14 08/04/2018 MEGAN D Primary MEGAN D [place] [id number] [place] Insurance:MEDICARE MARTINDOB: [facility] [id number] Hospital 31279Qax: Number: Repository [id number] (HP) Date:2018-06-16 08/04/2018 Secondary MEGAN D [place] Insurance:AARPPolicy MARTINDOB: Community Number: [id number] Hospital [id number] Repository Date:2851-31-84UU [address]BVJCUBQ, [place] [address]RC: 08/04/2018 Tertiary NOT GIVENUNK [place] Insurance:SELF PAY [facility] Number: Effective Repository Date:2018-06-16 06/27/2018 MEGAN D Primary MEGAN D [place] [id number] [place] Insurance:MEDICARE MARTINDOB: [facility] PART [facility] [id number] Hospital 00296Kaz: Number: Repository [id number] (HP) Date:2018-06-27 06/27/2018 Secondary MEGAN D Dom Insurance:AARPPolicy [facility] Community Number: [id number] Hospital [id number] Repository Date:2046-09-34MR [address]GRSMYNU, [place] [address]HZ: 06/27/2018 Tertiary NOT GIVENUNK [place] Insurance:SELF PAY [facility] Number: Effective Repository Date:2018-06-27 06/16/2018 MEGAN D Primary MEGAN D Dom [id number] [place] Insurance:MEDICARE MARTINDOB: [facility] [id number] Hospital 48014Vap: Number: Repository [id number] (HP) Date:2018-04-29 06/16/2018 Secondary MEGAN D Dom Insurance:[facility]ITALPP[facility] JEWELB: Community Number: [id number] Hospital [id number] Repository Date:0350-73-15SK [facility] [address], [place] [address]GZ: 06/16/2018 Tertiary NOT GIVENUNK [place] Insurance:SELF PAY [facility] Number: Effective Repository Date:2018-04-29 06/01/2018 MEGAN D Primary MEGAN D [place] [id number] [place] Insurance:MEDICARE FOLEYDOB: [facility] [id number] Hospital 49889Wev: Number: Repository [id number] (HP) Date:2018-05-31 06/01/2018 Secondary MEGAN D [place] Insurance:AARPPolicy JEWELDOB: Community Number: [id number] Hospital [id number] Repository Date:0851-52-13UA [address]MQOVVGC, [place] [address]OT: 06/01/2018 Tertiary NOT GIVENUNK Dom Insurance:SELF PAY [facility] Number: Effective Repository Date:2018-06-01 05/31/2018 MEGAN D Primary MEGAN D Dom [id number] [place] Insurance:MEDICARE MARTINDOB: [facility] [id number] Hospital 03584Umw: Number: Repository [id number] (HP) Date:2018-05-31 05/31/2018 Secondary MEGAN D [place] Insurance:AARPPolicy JEWELDOB: Community Number: [id number] Hospital [id number] Repository Date:4880-84-66BB [address]SS[place]OV[place], [place] [address]OQ: 05/31/2018 Tertiary NOT GIVENUNK [place] Insurance:SELF PAY [facility] Number: Effective Repository Date:2018-05-31 05/17/2018 MEGAN D Primary MEGAN D [place] [id number] [place] Insurance:MEDICARE MARTINDOB: [facility] [id number] Hospital 05011Idb: Number: Repository [id number] (HP) Date:2018-05-17 05/17/2018 Secondary MEGAN D Dom Insurance:AARPPolicy JEWELDOB: Community Number: [id number] Hospital [id number] Repository Date:1166-57-92OG [facility] [address]482BKOODJQ, [place] [address]WI: 05/17/2018 Tertiary NOT GIVENUNK [place] Insurance:SELF PAY [facility] Number: Effective Repository Date:2018-05-17 04/29/2018 MEGAN D Primary MEGAN D Dom [id number] [place] Insurance:MEDICARE MARTINDOB: [facility] [id number] Hospital 36995Lyf: Number: Repository [id number] (HP) Date:2018-04-29 04/29/2018 Secondary MEGAN D [place] Insurance:AARPPolicy JEWELDOB: Community Number: [id number] Hospital [id number] Repository Date:5166-00-45PZ [address]CNDHNHN, [place] [address]DE: 04/29/2018 Tertiary NOT GIVENUNK [place] Insurance:SELF PAY [facility] Number: Effective Repository Date:2018-04-29 04/28/2018 MEGAN D Primary MEGAN D [place] [id number] [place] Insurance:MEDICARE MARTINDOB: [facility] [id number] Hospital 16350Mpd: Number: Repository [id number] (HP) Date:2018-03-11 04/28/2018 Secondary MEGAN D Dom Insurance:AARPPolicy BRIDGETTB: Community Number: [id number] Hospital [id number] Repository Date:3732-47-73YG [facility] [address]FVHXARX, [place] [address]NG: 04/28/2018 Tertiary NOT GIVENUNK Dom Insurance:SELF PAY [facility] Number: Effective Repository Date:2018-03-11 03/27/2018 MEGAN D Primary MEGAN D Dom [id number] [place] Insurance:MEDICARE MARTINDOB: [facility] [id number] Hospital 68730Ivj: Number: Repository [id number] (HP) Date:2018-03-27 03/27/2018 Secondary MEGAN D Dom Insurance:AARPPolicy [facility]: Community Number: [id number] Hospital [id number] Repository Date:5062-62-15ZW [facility] [address], [place] [address]RJ: 03/27/2018 Tertiary NOT GIVENUNK [place] Insurance:SELF PAY [facility] Number: Effective Repository Date:2018-03-27 03/11/2018 MEGAN D Primary MEGAN D [place] [id number] [place] Insurance:MEDICARE FOLEYDOB: [facility] [id number] Hospital 32972Pve: Number: Repository [phone] [id number] (HP) Date:2018-01-21 03/11/2018 Secondary MEGAN D Dom Insurance:[facility]: [facility] Number: [id number] [facility] [id number] Repository Date:3071-88-85VO [address]FWUDD, [place] [address]SG: 03/11/2018 Tertiary NOT GIVENUNK [place] Insurance:SELF PAY [facility] Number: Effective Repository Date:2018-01-21 01/22/2018 MEGAN D Primary MEGAN D [place] [id number] [place] Insurance:MEDICARE MARTINDOB: [facility] [id number] Hospital 03613Nkh: Number: Repository [phone] [id number] (HP) Date:2018-01-22 01/22/2018 Secondary MEGAN D [place] Insurance:[facility]: Community Number: [id number] Hospital [id number] Repository Date:7970-65-94JH [address]JYXECOU, [place] [address]MT: 01/22/2018 Tertiary NOT GIVENUNK [place] Insurance:SELF PAY [facility] Number: Effective Repository Date:2018-01-22 01/22/2018 MEGAN D Primary MEGAN D Dom [id number] [place] Insurance:MEDICARE FOLEYDOB: [facility] [id number] Hospital 03123Muk: Number: Repository [phone] [id number] (HP) Date:2018-01-22 01/22/2018 Secondary MEGAN D [place] Insurance:AARPPolicy BRIDGETTB: Community Number: [id number] Hospital [id number] Repository Date:3387-79-15GX [facility] [address]99[address]LKIMXSB, [place] [address]LJ: 01/22/2018 Tertiary NOT GIVENUNK [place] Insurance:SELF PAY [facility] Number: Effective Repository Date:2018-01-22 01/22/2018 MEGAN D Primary MEGAN D [place] [id number] [place] Insurance:MEDICARE FOLEYDOB: [facility] [id number] Hospital 62321Vgr: Number: Repository [phone] [id number] (HP) Date:2018-01-22 01/22/2018 Secondary MEGAN D Dom Insurance:Jean-Claude URIASB: Community Number: [id number] Hospital [id number] Repository Date:6441-53-22KO [facility] [address]QIYTOMQ, [place] [address]AB: 01/22/2018 Tertiary NOT GIVENUNK Dom Insurance:SELF PAY [facility] Number: Effective Repository Date:2018-01-22 01/22/2018 MEGAN D Primary MEGAN D [place] [id number] [place] Insurance:MEDICARE MARTINDOB: [facility], PART A [facility] [id number] Hospital 12247Ygc: Number: Repository [phone] [id number] (HP) Date:2018-01-22 01/22/2018 Secondary MEGAN D [place] Insurance:MICHAELPPolicy BRIDGETTB: Community Number: [id number] Hospital [id number] Repository Date:1719-99-09NW [facility] [address]GGTJAPH, [place] [address]UG: 01/22/2018 Tertiary NOT GIVENUNK [place] Insurance:SELF PAY [facility] Hospital Number: Effective Repository Date:2018-01-22 01/21/2018 MEGAN D Primary MEGAN D [place] [id number] [place] Insurance:MEDICARE MARTINDOB: [facility] [id number] Hospital 31545Iuv: Number: Repository [phone] [id number] (HP) Date:2017-11-26 01/21/2018 Secondary MEGAN D Dom Insurance:AARPPolicy BRIDGETTB: Community Number: [id number] Hospital [id number] Repository Date:2704-64-67YM [facility] [address]802HQCPQZZ, [place] [address]MX: 01/21/2018 Tertiary NOT GIVENUNK [place] Insurance:SELF PAY [facility] Number: Effective Repository Date:2017-11-26 12/05/2017 MEGAN D Primary MEGAN D Dom [id number] [place] Insurance:MEDICARE MARTINDOB: [facility] [id number] Hospital 58437Xaw: Number: Repository [phone] [id number] (HP) Date:2017-12-05 12/05/2017 Secondary MEGAN D [place] Insurance:MICHAELPPolicisaura URIASB: Community Number: [id number] [id number] Repository Date:[id number], [place] [address]KO: 12/05/2017 Tertiary NOT GIVENUNK Dom Insurance:SELF PAY [facility] Number: Effective Repository Date:2017-12-05 11/27/2017 MEGAN D Primary MEGAN D Dom [id number] [place] Insurance:MEDICARE JEWELDOB: [facility] [id number] [id number]: Number: Repository [phone] [id number] (HP) Date:2017-11-25 11/27/2017 Secondary MEGAN D Dom Insurance:AARPPolicy BRIDGETTB: Community Number: [id number] Hospital [id number] Repository Date:[id number] [facility] [id number], [place] [address]NQ: 11/27/2017 Tertiary NOT GIVENUNK Dom Insurance:SELF PAY [facility] Number: Effective Repository Date:2017-11-25 11/26/2017 MEGAN D Primary MEGAN D [place] [id number] [place] Insurance:MEDICARE FOLEYDOB: [id number] [address] Number: Repository [phone] [id number] (HP) Date:2017-10-01 11/26/2017 Secondary MEGAN D Dom [id number] [id number] Repository Date:[id number], [place] [address]MQ: 11/26/2017 Tertiary NOT GIVENUNK Dom Insurance:SELF PAY [facility] Number: Effective Repository Date:2017-10-01 10/29/2017 MEGAN D Primary MEGAN D Dom [id number] [place] Insurance:MEDICARE MARTINDOB: [id number] [address]Qun: Number: Repository [phone] [id number] (HP) Date:2017-10-29 10/29/2017 Secondary MEGAN D [place] Insurance:AARPPolicy JEWELB: Community Number: [id number] [facility] [id number] Repository Date:[id number], [place] [address]WR: 10/29/2017 Tertiary NOT GIVENUNK Dom Insurance:SELF PAY [facility] Number: Effective Repository Date:2017-10-29
== END ==
PROVIDERS: Family Provider Family Medicine; PCP Family Medicine; Referring Provider Nurse Practitioner Acute Care; Visit Provider Nurse Practitioner Acute Care
DX: R06.02 Shortness of breath (principal)
CPT/HCPCS: 94060; 94726; 94729

== ENCOUNTER → 2018-10-29 20:00 | Outpatient (CLI) | payer MEDICARE, OTHER, SELFPAY ==
[2018-10-10 11:17] VITALS: BMI 33.0
== END ==
PROVIDERS: Family Provider Family Medicine; PCP Family Medicine; Referring Provider Nurse Practitioner Acute Care; Visit Provider Nurse Practitioner Acute Care
DX: G47.33 Obstructive sleep apnea (adult) (pediatric) (principal)
CPT/HCPCS: 95811

== ENCOUNTER → 2018-11-06 16:11 | Outpatient (CLI) | payer MEDICARE, OTHER, SELFPAY ==
[2018-10-23 11:25] VITALS: BMI 32.9
== END ==
PROVIDERS: Family Provider Family Medicine; PCP Family Medicine; Referring Provider Nurse Practitioner Acute Care; Visit Provider Nurse Practitioner Acute Care
DX: G47.33 Obstructive sleep apnea (adult) (pediatric) (principal)
CPT/HCPCS: 98960; G0463

== ENCOUNTER → 2018-11-13 09:32 | Outpatient (CLI) | payer MEDICARE, OTHER, SELFPAY ==
[2018-10-23 11:25] VITALS: BMI 32.9
--- NOTE | 2018-11-13 09:33 | STE_ITS ---
Reason For Study: ATRIAL FIBRILLATION/FLUTTER Stress Results Protocol: Stress Echocardiogram Maximum Predicted HR: 146 bpm Target HR: 124 bpm % Maximum Predicted HR: 91 % DurationHeart Rate Stage (mm:ss) (bpm) BP Comment BASELINE 77 178/80 AQUILES PROTOCOL- STAGE 1 3:00 116 160/80SOB AQUILES PROTOCOL- STAGE 2 1:00 133 212/90SOB, FATIGUE RECOVERY 85 164/84AUDIBLE WHEEZES, PO 95%, VERY FATIGUED Stress Duration: 4:00 mm:ss Maximum Stress HR: 133 bpm Baseline Echocardiogram Findings The estimated ejection fraction is 65 %. Stress Echo Wall motion Data Resting WM Intermediate WM Stress WM Resting Wall Motion Wall Motion Stress No regional wall motion No regional wall motion abnormalities noted. abnormalities noted. EKG Data The baseline ECG displays normal sinus rhythm. The patient exercised according to the regular Aquiles protocol for a total duration of 4:02. The maximum heart rate attained was 133 beats per minute. This was 91% of maximum predicted heart rate. The patient exercised into stage 2 of the Aquiles protocol. During stress, there were no ST or T wave changes noted to suggest ischemia. No clinical angina was noted. Interpretation Summary The estimated ejection fraction is 65 %. Normal, adequate, treadmill echocardiogram. Negative for ischemia by EKG and echocardiographic criteria. No anginal symptoms noted. Rare PVC noted. Hypertensive blood pressure response to exercise. Below average exercise capacity for age. Final LVEF is 75%. Test terminated due to the attainment of target heart rate, dyspnea and fatigue. No complications. Ordering Physician: Chuy Paiz Referring Physician: Chuy Paiz Performed By: Karen Pierre, JOE, RVT
== END ==
PROVIDERS: Family Provider Family Medicine; PCP Family Medicine; Referring Provider Internal Medicine Cardiovascular Disease; Visit Provider Internal Medicine Cardiovascular Disease
DX: I27.20 Pulmonary hypertension, unspecified (principal); I48.91 Unspecified atrial fibrillation; I48.92 Unspecified atrial flutter; R53.83 Other fatigue; R06.09 Other forms of dyspnea
CPT/HCPCS: 93017; 93350

== ENCOUNTER → 2018-12-08 07:55 | Outpatient (CLI) | payer MEDICARE, OTHER, SELFPAY ==
[2018-10-17 08:10] VITALS: BMI 32.1
[2018-11-26 11:16] VITALS: BMI 32.9
[2018-12-08 08:02] VITALS: BP 170/93; PULSE 76; RESP 18; TEMP 36.2; O2SAT 95; BMI 32.9
== END ==
PROVIDERS: Family Provider Family Medicine; PCP Family Medicine; Referring Provider Internal Medicine Rheumatology; Visit Provider Internal Medicine Rheumatology
DX: M06.09 Rheumatoid arthritis without rheumatoid factor, multiple sites (principal); K51.80 Other ulcerative colitis without complications
CPT/HCPCS: 96413; 96415; J7050; A4216; Q5103

== ENCOUNTER → 2018-12-26 13:41 | Outpatient (CLI) | payer MEDICARE, OTHER, SELFPAY ==
[2018-12-08 08:02] VITALS: BMI 32.9
[2018-12-26 15:03] LABS: Absolute Lymphocyte Count 2.53 X10^3/ul (0.83-4.51); Absolute Neutrophil Count 3.3 X10^3/uL (2.0-7.7); Basophil# 0.01 X10^3/uL; Basophil% 0.1 % (0-1); Eosinophil# 0.25 X10^3/uL; Eosinophils% 3.7 % (0-5); Hematocrit 39.9 % (40-54); Hemoglobin 12.8 g/dl (13.0-16.5); Lymphocyte # 2.53 X10^3/ul (4.0); Lymphocyte % 37.4 % (19-41); Mean Corp Hgb Conc 32.1 g/gl (32-36); Mean Corpuscular Hgb 29.5 pg (27.0-32.0); Mean Corpuscular Volume 91.9 fL (80-94); Mean Platelet Vol. 11.3 fl (6.2-12.0); Monocyte# 0.63 X10^3/uL; Monocyte% 9.3 % (0-10); Neutrophil # 3.34 X10^3/uL (2.7-7.7); Neutrophil % 49.5 % (47-70); POSITIVE COUNT NO; POSITIVE DIFFERENTIAL NO; POSITIVE MORPHOLOGY NO; Platelet Count 233 K/mm3 (150-450); RBC Distribution Width CV 15.5 % (11.6-14.6); RBC Distribution Width SD 52.5 fl (35.1-43.9); Red Blood Count 4.34 M/mm3 (4.6-6.2); White Blood Count 6.8 K/mm3 (4.4-11.0)
[2018-12-26 15:31] LABS: AST(SGOT) 33 U/L (15-37); Alanine Aminotransfer ALT/SGPT 30 U/L (16-61); Albumin, Serum 3.7 g/dL (3.2-5.0); Alkaline Phosphatase 56 U/L (45-117); Anion Gap 5 (5-15); BUN 13 mg/dL (7-18); BUN/Creat Ratio 10.8 RATIO (10-20); Calcium,Total 8.4 mg/dL (8.5-10.1); Chloride 106 mmol/L (98-107); EST Glomerular Filtration Rate 63 mL/min (>60); Est Glom Filt Rate - Afr Amer 76 mL/min (>60); Globulin 3.6 g/dL (2.2-4.2); Glucose 162 mg/dL (74-106); Potassium 3.4 mmol/L (3.5-5.1); Protein, Total 7.3 g/dL (6.4-8.2); Sodium Level 139 mmol/L (136-145)
== END ==
PROVIDERS: Family Provider Family Medicine; PCP Family Medicine; Referring Provider Internal Medicine Rheumatology; Visit Provider Internal Medicine Rheumatology
DX: M06.09 Rheumatoid arthritis without rheumatoid factor, multiple sites (principal); M15.9 Polyosteoarthritis, unspecified; K21.0 Gastro-esophageal reflux disease with esophagitis; M47.897 Other spondylosis, lumbosacral region; M51.37 Other intervertebral disc degeneration, lumbosacral region; M47.892 Other spondylosis, cervical region; Z79.899 Other long term (current) drug therapy
CPT/HCPCS: 36415; 80053; 85025

== ENCOUNTER → 2019-01-26 07:45 | Outpatient (CLI) | payer MEDICARE, OTHER, SELFPAY ==
[2018-12-08 08:02] VITALS: BMI 32.9
[2019-01-26 07:50] VITALS: BP 197/99; PULSE 74; RESP 16; TEMP 36; O2SAT 94; BMI 32.6
[2019-01-26 11:36] VITALS: BP 165/91; PULSE 64
== END ==
PROVIDERS: Family Provider Family Medicine; PCP Family Medicine; Referring Provider Internal Medicine Rheumatology; Visit Provider Internal Medicine Rheumatology
DX: M06.09 Rheumatoid arthritis without rheumatoid factor, multiple sites (principal); K51.80 Other ulcerative colitis without complications
CPT/HCPCS: 96413; 96415; J7050; A4216; Q5103

== ENCOUNTER → 2019-03-16 07:54 | Outpatient (CLI) | payer MEDICARE, OTHER, SELFPAY ==
[2019-01-26 07:50] VITALS: BMI 32.6
[2019-02-16 10:53] VITALS: BMI 32.4
[2019-03-16] VITALS (7 sets, daily range): BP systolic 143–169; BP diastolic 76–92; PULSE 65–71; RESP 16–18; TEMP 36.1–36.4; O2SAT 93–97; BMI 31.5
== END ==
PROVIDERS: Family Provider Family Medicine; PCP Family Medicine; Referring Provider Internal Medicine Rheumatology; Visit Provider Internal Medicine Rheumatology
DX: M06.09 Rheumatoid arthritis without rheumatoid factor, multiple sites (principal); K51.80 Other ulcerative colitis without complications
CPT/HCPCS: 96413; 96415; J7050; A4216; Q5103

== ENCOUNTER → 2019-05-04 07:54 | Outpatient (CLI) | payer MEDICARE, OTHER, SELFPAY ==
[2019-03-16 08:02] VITALS: BMI 31.5
[2019-03-19 10:04] VITALS: BMI 31.5
[2019-05-04 08:07] VITALS: BP 184/91; PULSE 72; RESP 16; TEMP 36.3; O2SAT 96; BMI 30.8
[2019-05-04 09:14] VITALS: BP 149/82; PULSE 60; RESP 15; TEMP 36.4; O2SAT 93
[2019-05-04 09:31] VITALS: BP 150/77; PULSE 59; RESP 16; TEMP 36.3; O2SAT 97
[2019-05-04 09:45] VITALS: BP 145/74; PULSE 59; RESP 14; TEMP 36.6
[2019-05-04 10:04] VITALS: BP 146/75; PULSE 59; RESP 15; TEMP 36.6
[2019-05-04 11:05] VITALS: BP 140/80; PULSE 82; RESP 16; TEMP 36.4; O2SAT 98
== END ==
PROVIDERS: Family Provider Family Medicine; PCP Family Medicine; Referring Provider Internal Medicine Rheumatology; Visit Provider Internal Medicine Rheumatology
DX: M06.09 Rheumatoid arthritis without rheumatoid factor, multiple sites (principal); K51.80 Other ulcerative colitis without complications
CPT/HCPCS: 96413; 96415; J7050; A4216; Q5103

== ENCOUNTER → 2019-06-22 06:23 | Outpatient (CLI) | payer MEDICARE, OTHER, SELFPAY ==
[2019-05-28 09:11] VITALS: BMI 30.7
[2019-06-22 07:08] LABS: Absolute Lymphocyte Count 1.49 X10^3/uL (0.83-4.51); Absolute Neutrophil Count 4.6 X10^3/uL (2.0-7.7); Basophil# 0.02 X10^3/uL; Basophil% 0.3 % (0-1); Eosinophil# 0.15 X10^3/uL; Eosinophils% 2.2 % (0-5); Hemoglobin 12.8 g/dL (13.0-16.5); Lymphocyte # 1.49 X10^3/ul (4.0); Mean Corpuscular Hgb 28.8 pg (27.0-32.0); Mean Corpuscular Volume 89.9 fL (80-94); Mean Platelet Vol. 10.7 fl (6.2-12.0); Monocyte# 0.55 X10^3/uL; Monocyte% 8.1 % (0-10); NRBC Flagged by Analyzer 0 % (0-5); Neutrophil # 4.56 X10^3/uL (2.7-7.7); Neutrophil % 67.3 % (47-70); Platelet Count 246 K/mm3 (150-450); RBC Distribution Width CV 16.1 % (11.6-14.6); RBC Distribution Width SD 53.4 fl (35.1-43.9); Red Blood Count 4.45 M/mm3 (4.6-6.2); White Blood Count 6.8 K/mm3 (4.4-11.0)
[2019-06-22 07:33] LABS: ALB/GLOB Ratio 0.8 RATIO (0.9-2.4); AST(SGOT) 38 U/L (15-37); Alanine Aminotransfer ALT/SGPT 39 U/L (16-61); Albumin, Serum 3.6 g/dL (3.2-5.0); Alkaline Phosphatase 69 U/L (45-117); Anion Gap 10 (5-15); BUN 24 mg/dL (7-18); BUN/Creat Ratio 16.3 RATIO (10-20); Calcium,Total 8.9 mg/dL (8.5-10.1); Chloride 102 mmol/L (98-107); Creatinine, Serum 1.47 mg/dL (0.70-1.30); EST Glomerular Filtration Rate 50 mL/min (>60); Est Glom Filt Rate - Afr Amer 60 mL/min (>60); Globulin 4.4 g/dL (2.2-4.2); Glucose 135 mg/dL (74-106); Potassium 3.3 mmol/L (3.5-5.1); Sodium Level 141 mmol/L (136-145)
== END ==
PROVIDERS: Family Provider Family Medicine; PCP Family Medicine; Referring Provider Internal Medicine Rheumatology; Visit Provider Internal Medicine Rheumatology
DX: M06.09 Rheumatoid arthritis without rheumatoid factor, multiple sites (principal); M15.9 Polyosteoarthritis, unspecified; K21.0 Gastro-esophageal reflux disease with esophagitis; M51.37 Other intervertebral disc degeneration, lumbosacral region; M47.892 Other spondylosis, cervical region; K51.80 Other ulcerative colitis without complications; I10 Essential (primary) hypertension; E78.5 Hyperlipidemia, unspecified; E11.9 Type 2 diabetes mellitus without complications; Z79.899 Other long term (current) drug therapy
CPT/HCPCS: 36415; 80053; 85025

== ENCOUNTER 2019-06-24 09:53 | Emergency (ER) | payer MEDICARE, OTHER, SELFPAY ==
[2019-06-24 06:13] VITALS: BMI 29.1
[2019-06-24 09:55] VITALS: BP 167/108; PULSE 90; RESP 16; TEMP 36.2; O2SAT 97; BMI 29.1
--- NOTE | 2019-06-24 10:24 | CT_ITS ---
STUDY: CT BRAIN WITHOUT CONTRAST REASON FOR EXAM: Male, 73 years old. Headaches following a recent fall. RADIATION DOSAGE (If Supplied By Facility): CTDIvol = ( 44.99 ) mGy, DLP = ( 779.24 ) mGycm TECHNIQUE: Transaxial CT imaging of the brain was performed without administration of intravenous contrast material. Individualized dose optimization techniques were used for this CT. COMPARISON: Comparison is made with prior examination dated November 05, 2016. FINDINGS: Normal soft tissue structures. Normal calvarium. There is mild cerebral atrophy with widening of the extra-axial spaces and ventricular dilatation. Normal white matter tracts of the cerebral hemispheres. Normal basal ganglia and thalami. Normal brainstem. Normal cerebellum. There is no intracranial hemorrhage. There are no findings of an acute ischemic infarction. 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 This extends towards the left side of the midline. Normal visualized paranasal sinuses. CT/Brain/Head without Contrast IMPRESSION: Chronic involutional changes of the brain. Electronically Signed: Shad Macias, at 11:29 EDT , Service support ,
--- NOTE | 2019-06-24 10:25 | CT_ITS ---
STUDY: CT CERVICAL SPINE WITHOUT CONTRAST REASON FOR EXAM: Male, 73 years old. Headaches following a recent fall. RADIATION DOSAGE (If Supplied By Facility): CTDIvol = ( 28.54 ) mGy, DLP = ( 639.68 ) mGycm TECHNIQUE: High resolution transaxial imaging was performed without contrast material. Sagittal and coronal images were reconstructed. Individualized dose optimization techniques were used for this CT. COMPARISON: Comparison is made with prior examination dated September 09, 2010 and September 18, 2018. FINDINGS: Normal craniovertebral junction. Normal anterior atlantoaxial articulation. Normal odontoid process. Normal cervical lordosis. Normal vertebral bodies and posterior osseous elements. C2-3: Normal endplates. Normal disc height and morphology. Normal central canal and intervertebral neuroforamina. C3-4: The patient is status post laminectomy and interpedicular screw fixation. Marked degree of a left facet joint hypertrophy with severe left sided stenosis. C4-5: The space narrowing. Posterior laminectomy and fusion. Mild to moderate degree of bilateral neural foraminal stenosis. C5-6: Moderate degree of disc space narrowing. Prior laminectomy and fusion. Central posterior spondylosis causing deformity of the anterior aspect of the thecal sac. C6-7: Marked degree of disc space narrowing. Prior posterior laminectomy and fusion with moderate to severe degree of bilateral neural foraminal stenosis. Atherosclerotic calcification of the carotid bifurcations. CT/Spine Cervical without Contras IMPRESSION: Multilevel laminectomy and posterior fusion with severe degree of neural foraminal stenosis as described. Electronically Signed: Shad Macias, at 11:39 EDT , Service support ,
--- NOTE | 2019-06-24 10:26 | ED.VIS.GEN ---
History of Present Illness Chief Complaint: Headache Detail of Chief Complaint: Headache and right shoulder pain Informant: Patient Onset: Days Current Severity: Moderate Maximum Severity: Moderate Narrative: Patient tripped and fell while doing yard work 3 days ago. Since that time he has had a generalized headache with light sensitivity, nausea, and vomiting. He has a history of rare migraines. He also injured his right shoulder when he fell. He has been taking Tylenol without significant improvement. Past Medical History - Allergies and Home Meds Allergies/Adverse Reactions: Allergies aspirin Allergy (Severe, Verified 06/24/19 09:54) Mouth swelling morphine Adverse Reaction (Severe, Verified 06/24/19 09:54) UNABLE TO URINATE Primary Care Physician: Jayme Yang MD [Primary Care Provider] - Prior records reviewed: Yes Past Medical History: - - Reviewed Surgical History: no surgical history, noncontributory, - - Fusion of the cervical spine, lumbar spine surgery, bilateral knee replacements, partial colon resection due to diverticulitis Lives: Spouse/ Significant Other Smoking Status: Former smoker - Family History Maternal Family History: Family History (Last Reviewed 06/24/19 @ 08:54 by Fabiana Tidwell) Mother Heart disease Diabetes Father Heart disease Lung disease Brother Heart disease Lung disease Cancer Sister Diabetes Cancer Family History: Reports: Heart Disease Paternal Family History: Family History (Last Reviewed 06/24/19 @ 08:54 by Fabiana Tidwell) Mother Heart disease Diabetes Father Heart disease Lung disease Brother Heart disease Lung disease Cancer Sister Diabetes Cancer Family History: Reports: COPD, Heart Disease Review of Systems General: Denies: Chills, Fever Eyes: Denies: Visual changes - bilaterally ENT: Denies: Bilateral ear pain Cardiovascular: Denies: Chest pain Respiratory: Denies: Dyspnea Gastrointestinal: Reports: Nausea, Vomiting. Denies: Abdominal pain Musculoskeletal: Reports: Extremity Pain. Denies: Neck pain Skin: Reports: Abrasions Neurological: Reports: Headache. Denies: Weakness, Parasthesia Endocrine: Denies: Polyuria, Polydipsia Allergy: Denies: Uticaria Physical Exam Vital Signs/Narrative: Vital Signs Temp Pulse Resp BP Pulse Ox 06/24/19 09:55 97.2 F L 90 16 167/108 H 97 Inital Vital Signs reviewed: Yes General: Well nourished, Well developed ENT: Moist mucous membranes Neck: Supple Cardiovascular: Regular rate, Regular rhythm Respiratory: No distress, CTA bilaterally Abdomen: Soft, Nontender Extremities: - - Abrasion to right shoulder with tenderness to palpation. Skin: - - Abrasion to right shoulder as above Neurological: Alert, Oriented x3, - - No focal deficits. Psychological: Normal affect Diagnostic/Tx/Re-eval Impressions Brain CT 06/24/19 10:24 IMPRESSION: Chronic involutional changes of the brain. Electronically Signed: Shad Cloleen, at 11:29 EDT , Service support , Cervical Spine CT 06/24/19 10:25 IMPRESSION: Multilevel laminectomy and posterior fusion with severe degree of neural foraminal stenosis as described. Electronically Signed: Shad Colleen, at 11:39 EDT , Service support , Shoulder X-Ray 06/24/19 11:10 IMPRESSION: Degenerative changes. Electronically Signed: Shad Colleen, at 11:34 EDT , Service support , 06/24/19 10:24 CT Head [Brain/Head without Contrast] [CT] Stat 06/24/19 10:25 CT Cervical [Spine Cervical without Contras] [CT] Stat 06/24/19 11:10 Xray Shoulder [Shoulder min 2 Views] [RAD] Stat Laboratory Results 06/24/19 06/24/19 10:34 10:34 WBC 7.0 RBC 4.48 L Hgb 13.3 Hct 40.4 MCV 90.2 MCH 29.7 MCHC 32.9 RDW Std Deviation 53.1 H RDW Coeff of Azeem 15.9 H Plt Count 257 MPV 10.5 Immature Gran % (Auto) 0.300 Neut % (Auto) 60.6 Lymph % (Auto) 29.6 [place]ell % (Auto) 8.7 Eos % (Auto) 0.7 Baso % (Auto) 0.1 Absolute Neuts (auto) 4.2 Absolute Lymphs (auto) 2.07 Nucleated RBC % 0 Sodium 138 Potassium 3.4 L Chloride 101 Carbon Dioxide 32.0 Anion Gap 5 BUN 28 H Creatinine 1.50 H Estim Creat Clear Calc 40.39 Est GFR (MDRD) Af Amer 59 L Est GFR (MDRD) Non-Af 49 L BUN/Creatinine Ratio 18.7 Glucose 97 Calcium 9.2 - Medical Decision Making Following CT scan, patient was given a dose of fentanyl and Zofran. On repeat evaluation he reported no improvement in his headache. He is given a dose of Tylenol, Benadryl, and Reglan. He does have an allergy listed to aspirin which causes swelling of his mouth. He has not taken ibuprofen at home so therefore Toradol was avoided. At this time patient does report some improvement in his headache. I discussed with him that I believe a lot of this is concussion as opposed to true migraine. I did advise him that headache from concussion can last up to 6 weeks. He wishes to go home and try Tylenol, Reglan, and Benadryl at home. ED Disposition - Plan for ED Patient: Disposition: Home or Assisted Living Diagnosis: Concussion, Right shoulder strain Instructions: Concussion Prescriptions: DiphenhydrAMINE [Benadryl] 25 mg PO BID PRN PRN #10 capsule PRN Reason: Headache Metoclopramide [Reglan] 10 mg PO BID PRN #10 tablet PRN Reason: Headache Referrals: Jayme Yang MD [Primary Care Provider] - 1 Week if not improving
[2019-06-24 10:45] LABS: Absolute Lymphocyte Count 2.07 X10^3/uL (0.83-4.51); Absolute Neutrophil Count 4.2 X10^3/uL (2.0-7.7); Basophil# 0.01 X10^3/uL; Basophil% 0.1 % (0-1); Eosinophil# 0.05 X10^3/uL; Eosinophils% 0.7 % (0-5); Hematocrit 40.4 % (40-54); Hemoglobin 13.3 g/dL (13.0-16.5); Lymphocyte # 2.07 X10^3/ul (4.0); Lymphocyte % 29.6 % (19-41); Mean Corp Hgb Conc 32.9 g/dL (32-36); Mean Corpuscular Hgb 29.7 pg (27.0-32.0); Mean Corpuscular Volume 90.2 fL (80-94); Mean Platelet Vol. 10.5 fl (6.2-12.0); Monocyte# 0.61 X10^3/uL; Monocyte% 8.7 % (0-10); NRBC Flagged by Analyzer 0 % (0-5); Neutrophil # 4.24 X10^3/uL (2.7-7.7); Neutrophil % 60.6 % (47-70); Platelet Count 257 K/mm3 (150-450); RBC Distribution Width CV 15.9 % (11.6-14.6); RBC Distribution Width SD 53.1 fl (35.1-43.9); Red Blood Count 4.48 M/mm3 (4.6-6.2)
[2019-06-24 11:09] LABS: Anion Gap 5 (5-15); BUN 28 mg/dL (7-18); BUN/Creat Ratio 18.7 RATIO (10-20); Calcium,Total 9.2 mg/dL (8.5-10.1); Chloride 101 mmol/L (98-107); EST Glomerular Filtration Rate 49 mL/min (>60); Est Glom Filt Rate - Afr Amer 59 mL/min (>60); Estimated Creatinine Clearance 40.39 ml/min; Glucose 97 mg/dL (74-106); Potassium 3.4 mmol/L (3.5-5.1); Sodium Level 138 mmol/L (136-145)
--- NOTE | 2019-06-24 11:10 | RAD_ITS ---
STUDY: X-RAY - RIGHT SHOULDER REASON FOR EXAM: Male, 73 years old. Continued pain following a recent fall. TECHNIQUE: 4 view(s) of the shoulder. COMPARISON: None. FINDINGS: There is moderate degenerative arthrosis of the glenohumeral articulation. There is hypertrophic osteoarthrosis of the acromioclavicular joint with inferior osseous spur formation. Normal acromion. Normal humeral head and visualized proximal humerus. Prior cervical fusion and laminectomy. The soft tissue structures are unremarkable. Normal visualized pulmonary apex. RAD/Shoulder min 2 Views IMPRESSION: Degenerative changes. Electronically Signed: Shad Macias, at 11:34 EDT , Service support ,
[2019-06-24] MEDS: fentaNYL 100 MCG/2 ML Ampul 25 MCG IV (12:31)
[2019-06-24] MEDS: Ondansetron 4 MG/2 ML Vial IV (12:31)
[2019-06-24] MEDS: 0.9% Normal Saline 1,000 ML 15 ML IV (12:31)
[2019-06-24 12:33] VITALS: BP 192/100; PULSE 72; RESP 12; O2SAT 91; O2SAT 97
[2019-06-24] MEDS: Acetaminophen 500 MG Tablet 1000 MG PO (13:15)
[2019-06-24] MEDS: DiphenhydrAMINE 50 MG/ML Syringe 12.5 MG IV (13:16)
[2019-06-24] MEDS: Metoclopramide 10 MG/2 ML Vial 5 MG IV (13:18)
[2019-06-24 14:23] VITALS: BP 127/68; PULSE 71; RESP 15; O2SAT 98
[2019-06-24 14:42] VITALS: BP 132/79; PULSE 69; RESP 16; O2SAT 97
== END 2019-06-24 14:45 | disposition home or self-care (01) ==
PROVIDERS: Emergency Provider Emergency Medicine; Family Provider Family Medicine; PCP Family Medicine
DX: S06.0X9A Concussion with loss of consciousness of unspecified duration, initial encounter (principal); S43.401A Unspecified sprain of right shoulder joint, initial encounter; W01.0XXA Fall on same level from slipping, tripping and stumbling without subsequent striking against object, initial encounter; Y93.H9 Activity, other involving exterior property and land maintenance, building and construction; G43.909 Migraine, unspecified, not intractable, without status migrainosus; M19.011 Primary osteoarthritis, right shoulder; Z87.891 Personal history of nicotine dependence
CPT/HCPCS: 70450; 72125; 73030; 80048; 85025; 96374; 96375; 99284; J7030; A4216; J2405

== ENCOUNTER → 2019-06-26 07:56 | Outpatient (CLI) | payer MEDICARE, OTHER, SELFPAY ==
[2019-05-04 08:07] VITALS: BMI 30.8
[2019-06-24 09:55] VITALS: BMI 29.1
[2019-06-26 08:02] VITALS: BP 152/79; PULSE 83; RESP 16; TEMP 36.1; O2SAT 98; BMI 29.2
[2019-06-26 09:14] VITALS: BP 156/78; PULSE 75; RESP 16; TEMP 36.2
[2019-06-26 09:31] VITALS: BP 179/75; PULSE 75; TEMP 36.2
[2019-06-26 09:48] VITALS: BP 156/77; PULSE 74; RESP 16; TEMP 36.4
[2019-06-26 10:03] VITALS: BP 157/80; PULSE 74; RESP 16; TEMP 36.4
[2019-06-26 11:05] VITALS: BP 154/84; PULSE 74; RESP 16; TEMP 36.4
== END ==
PROVIDERS: Family Provider Family Medicine; PCP Family Medicine; Referring Provider Internal Medicine Rheumatology; Visit Provider Internal Medicine Rheumatology
DX: M06.09 Rheumatoid arthritis without rheumatoid factor, multiple sites (principal); K51.80 Other ulcerative colitis without complications
CPT/HCPCS: 96413; 96415; J7050; A4216; Q5103

== ENCOUNTER → 2019-07-03 11:12 | Outpatient (CLI) | payer MEDICARE, OTHER, SELFPAY ==
[2019-06-26 08:02] VITALS: BMI 29.2
[2019-07-03 12:42] LABS: Anion Gap 7 (5-15); BUN 20 mg/dL (7-18); Calcium,Total 8.6 mg/dL (8.5-10.1); Chloride 101 mmol/L (98-107); Creatinine, Serum 1.33 mg/dL (0.70-1.30); EST Glomerular Filtration Rate 56 mL/min (>60); Est Glom Filt Rate - Afr Amer 67 mL/min (>60); Glucose 165 mg/dL (74-106); Potassium 3.4 mmol/L (3.5-5.1); Sodium Level 140 mmol/L (136-145)
== END ==
PROVIDERS: Family Provider Family Medicine; PCP Family Medicine; Referring Provider Nurse Practitioner Family; Visit Provider Nurse Practitioner Family
DX: I16.0 Hypertensive urgency (principal); E11.9 Type 2 diabetes mellitus without complications
CPT/HCPCS: 36415; 80048

== ENCOUNTER → 2019-08-17 07:52 | Outpatient (CLI) | payer MEDICARE, OTHER, SELFPAY ==
[2019-06-26 08:02] VITALS: BMI 29.2
[2019-08-17 08:06] VITALS: BP 176/79; PULSE 73; RESP 16; TEMP 35.6; O2SAT 96; BMI 30.7
[2019-08-17 09:37] VITALS: BP 166/77; PULSE 65; RESP 16; TEMP 36.6; O2SAT 90
[2019-08-17 09:50] VITALS: BP 160/80; PULSE 64; RESP 16; TEMP 36.2
[2019-08-17 10:04] VITALS: BP 179/76; PULSE 61; RESP 16; TEMP 36.1
[2019-08-17 10:24] VITALS: BP 164/82; PULSE 60; RESP 16; TEMP 36.1
[2019-08-17 11:38] VITALS: BP 182/92; PULSE 64; RESP 16; TEMP 35.8
== END ==
PROVIDERS: Family Provider Family Medicine; PCP Family Medicine; Referring Provider Internal Medicine Rheumatology; Visit Provider Internal Medicine Rheumatology
DX: M06.09 Rheumatoid arthritis without rheumatoid factor, multiple sites (principal); K51.80 Other ulcerative colitis without complications
CPT/HCPCS: 96413; 96415; J7050; A4216; Q5103

== ENCOUNTER → 2019-10-05 07:51 | Outpatient (CLI) | payer MEDICARE, OTHER, SELFPAY ==
[2019-08-17 08:06] VITALS: BMI 30.7
[2019-09-15 09:07] VITALS: BMI 30.7
[2019-10-05] VITALS (7 sets, daily range): BP systolic 172–182; BP diastolic 82–92; PULSE 74–84; RESP 16–18; TEMP 36–36.2; O2SAT 93–96; BMI 30.8
== END ==
PROVIDERS: Family Provider Family Medicine; PCP Family Medicine; Referring Provider Internal Medicine Rheumatology; Visit Provider Internal Medicine Rheumatology
DX: M06.09 Rheumatoid arthritis without rheumatoid factor, multiple sites (principal); K51.80 Other ulcerative colitis without complications
CPT/HCPCS: 96413; 96415; J7050; A4216; Q5103

== ENCOUNTER → 2019-11-23 07:53 | Outpatient (CLI) | payer MEDICARE, OTHER, SELFPAY ==
[2019-10-05 08:01] VITALS: BMI 30.8
[2019-11-20 12:39] VITALS: BMI 31.3
[2019-11-23 08:13] VITALS: BP 168/82; PULSE 73; RESP 18; TEMP 36.4; O2SAT 94; BMI 31.9
[2019-11-23 11:08] VITALS: BP 145/70; PULSE 64; RESP 18; TEMP 36.1; O2SAT 94
== END ==
PROVIDERS: Family Provider Family Medicine; PCP Family Medicine; Referring Provider Internal Medicine Rheumatology; Visit Provider Internal Medicine Rheumatology
DX: M06.09 Rheumatoid arthritis without rheumatoid factor, multiple sites (principal); K51.80 Other ulcerative colitis without complications
CPT/HCPCS: 96413; 96415; J7050; A4216; Q5103

== ENCOUNTER → 2019-12-11 09:04 | Outpatient (CLI) | payer MEDICARE, OTHER, SELFPAY ==
[2019-11-23 08:13] VITALS: BMI 31.9
[2019-12-11 10:44] LABS: Anion Gap 7 (5-15); BUN 20 mg/dL (7-18); BUN/Creat Ratio 13.6 RATIO (10-20); Calcium,Total 8.6 mg/dL (8.5-10.1); Chloride 106 mmol/L (98-107); Cholesterol 196 mg/dL (200); Creatinine, Serum 1.47 mg/dL (0.70-1.30); EST Glomerular Filtration Rate 50 mL/min (>60); Est Glom Filt Rate - Afr Amer 60 mL/min (>60); Glucose 97 mg/dL (74-106); High Density Lipoprotein 41 mg/dL; Potassium 3.4 mmol/L (3.5-5.1); Sodium Level 142 mmol/L (136-145); Triglycerides 103 mg/dL; Very Low Density Lipoprotein 21 mg/dL (5-40)
== END ==
PROVIDERS: PCP Family Medicine; Visit Provider Family Medicine
DX: E11.8 Type 2 diabetes mellitus with unspecified complications (principal)
CPT/HCPCS: 36415; 80048; 80061; 83036

== ENCOUNTER → 2019-12-17 12:07 | Outpatient (CLI) | payer MEDICARE, OTHER, SELFPAY ==
[2019-11-23 08:13] VITALS: BMI 31.9
[2019-12-17 15:46] LABS: Absolute Lymphocyte Count 2.39 X10^3/uL (0.83-4.51); Absolute Neutrophil Count 4.8 X10^3/uL (2.0-7.7); Basophil# 0.03 X10^3/uL; Basophil% 0.4 % (0-1); Eosinophil# 0.18 X10^3/uL; Eosinophils% 2.2 % (0-5); Hematocrit 39.4 % (40-54); Hemoglobin 12.7 g/dL (13.0-16.5); Lymphocyte # 2.39 X10^3/ul (4.0); Lymphocyte % 29.2 % (19-41); Mean Corp Hgb Conc 32.2 g/dL (32-36); Mean Platelet Vol. 11.8 fl (6.2-12.0); Monocyte# 0.74 X10^3/uL; NRBC Flagged by Analyzer 0 % (0-5); Neutrophil # 4.81 X10^3/uL (2.7-7.7); Neutrophil % 58.8 % (47-70); Platelet Count 256 K/mm3 (150-450); RBC Distribution Width SD 53.7 fl (35.1-43.9); Red Blood Count 4.38 M/mm3 (4.6-6.2); White Blood Count 8.2 K/mm3 (4.4-11.0)
[2019-12-17 15:55] LABS: ALB/GLOB Ratio 0.9 RATIO (0.9-2.4); AST(SGOT) 39 U/L (15-37); Alanine Aminotransfer ALT/SGPT 50 U/L (16-61); Albumin, Serum 3.8 g/dL (3.2-5.0); Alkaline Phosphatase 60 U/L (45-117); Anion Gap 5 (5-15); BUN 22 mg/dL (7-18); BUN/Creat Ratio 14.5 RATIO (10-20); Calcium,Total 9.1 mg/dL (8.5-10.1); Chloride 102 mmol/L (98-107); Creatinine, Serum 1.52 mg/dL (0.70-1.30); EST Glomerular Filtration Rate 48 mL/min (>60); Est Glom Filt Rate - Afr Amer 58 mL/min (>60); Globulin 4.3 g/dL (2.2-4.2); Glucose 92 mg/dL (74-106); Potassium 3.6 mmol/L (3.5-5.1); Protein, Total 8.1 g/dL (6.4-8.2); Sodium Level 137 mmol/L (136-145)
== END ==
PROVIDERS: PCP Family Medicine; Referring Provider Internal Medicine Rheumatology; Visit Provider Internal Medicine Rheumatology
DX: M06.09 Rheumatoid arthritis without rheumatoid factor, multiple sites (principal); M15.9 Polyosteoarthritis, unspecified; K21.0 Gastro-esophageal reflux disease with esophagitis; M47.897 Other spondylosis, lumbosacral region; M51.37 Other intervertebral disc degeneration, lumbosacral region; K51.80 Other ulcerative colitis without complications; Z79.899 Other long term (current) drug therapy
CPT/HCPCS: 36415; 80053; 85025

== ENCOUNTER → 2020-01-11 07:59 | Outpatient (CLI) | payer MEDICARE, OTHER, SELFPAY ==
[2019-11-23 08:13] VITALS: BMI 31.9
[2019-12-24 12:27] VITALS: BMI 31.9
[2020-01-11 08:05] VITALS: BP 184/71; PULSE 78; RESP 16; TEMP 36.1; O2SAT 95; BMI 31.6
[2020-01-11] MEDS: 0.9% NaCl Peripheral Flush Adult/Peds IV (08:19)
== END ==
PROVIDERS: PCP Family Medicine; Referring Provider Internal Medicine Rheumatology; Visit Provider Internal Medicine Rheumatology
DX: M06.09 Rheumatoid arthritis without rheumatoid factor, multiple sites (principal); K51.80 Other ulcerative colitis without complications
CPT/HCPCS: 96413; 96415; J7050; A4216; Q5103

== ENCOUNTER → 2020-02-02 08:46 | Outpatient (CLI) | payer MEDICARE, OTHER, SELFPAY ==
[2019-12-24 12:27] VITALS: BMI 31.9
[2020-01-11 08:05] VITALS: BMI 31.6
--- NOTE | 2020-02-02 08:48 | ECHOD_ITS ---
Reason For Study: HTN Procedure This was a 2D Doppler, Color Flow transthoracic echocardiogram. Exam performed in department. Left Ventricle Moderate concentric left ventricular hypertrophy. The estimated ejection fraction is 65 %. Stage 2 diastolic dysfunction. Septal motion consistent with IVCD. No regional wall motion abnormalities noted. Right Ventricle Moderately dilated right ventricle. Normal systolic function. Atria The left atrium is moderately enlarged. Normal right atrium. Normal atrial septum. Mitral Valve Mild diffuse mitral valve thickening. Mild focal mitral valve thickening. Mild mitral valve stenosis. Mild (1+) mitral valve insufficiency. Tricuspid Valve Normal tricuspid valve. Trivial tricuspid valve insufficiency. Right ventricular systolic pressure estimated to be 40 mmHg. Mild pulmonary hypertension. Aortic Valve Trisinus/trileaflet aortic valve. Moderate diffuse aortic valve thickening. Mild focal aortic valve calcification. Mild aortic stenosis. Peak aortic valve gradient 15 mmHg. Mean aortic valve gradient 8 mmHg. Trivial aortic valve insufficiency. Pulmonic Valve Normal pulmonic valve. Great Vessels Normal aortic root. Normal arch. Normal inferior vena cava. Inferior vena cava collapse with sniff. Pericardium/Pleural No pericardial effusion. MMode/2D Measurements & Calculations LVIDd: 5.4 cm IVSd: 1.4 cm LVOT diam: 2.0 cm LVIDs: 3.9 cm LVPWd: 1.3 cm LVOT area: 3.2 cm2 RVDd: 4.0 cm FS: 27.3 % Ao root diam: 3.9 cm LAV(MOD-bp): 87.7 ml LA A4 area: 25.1 cm2 LA dimension: 4.6 cm LAV(MOD-bp) Indexed: 43.4 ml/m2 LAV(MOD-sp2): 82.8 ml LAV(MOD-sp4): 79.8 ml RA A4 area: 19.9 cm2 Time Measurements MV dec time: 0.22 sec Doppler Measurements & Calculations MV E max roge: 153.1 cm/sec Lat Peak E' Roge: 6.8 cm/sec Med Peak E' Roge: 6.0 cm/sec MV A max roge: 96.6 cm/sec E/E' lat: 22.5 E/E' med: 25.4 MV E/A: 1.6 MV V2 max: 154.8 cm/sec MV P1/2t max roge: 155.5 cm/sec Ao V2 max: 195.5 cm/sec MV max P.6 mmHg MV P1/2t: 83.8 msec Ao max P.3 mmHg MV V2 mean: 84.2 cm/sec MV dec slope: 543.5 cm/sec2 Ao V2 mean: 130.3 cm/sec MV mean P.3 mmHg Ao mean P.7 mmHg MV V2 VTI: 41.2 cm MVA(P1/2t): 2.6 cm2 Ao V2 VTI: 45.9 cm MVA(VTI): 2.1 cm2 LU(I,D): 1.9 cm2 LU(V,D): 1.9 cm2 LV V1 max: 115.6 cm/sec SV(LVOT): 86.7 ml PA V2 max: 103.3 cm/sec LV V1 max P.3 mmHg LV V1 mean P.8 mmHg LV V1 mean: 80.3 cm/sec LV V1 VTI: 26.8 cm TR max roge: 281.3 cm/sec TR max P.6 mmHg Interpretation Summary Moderate concentric left ventricular hypertrophy. The estimated ejection fraction is 65 %. Stage 2 diastolic dysfunction. Moderately dilated right ventricle. The left atrium is moderately enlarged. Mild mitral valve stenosis. Mild (1+) mitral valve insufficiency. Trivial tricuspid valve insufficiency. Right ventricular systolic pressure estimated to be 40 mmHg. Mild pulmonary hypertension. Mild aortic stenosis. Trivial aortic valve insufficiency. Compared to echo report dated 09/20/2018, LV function and pulmonary pretension appear to be the same. Patient appears to be in normal sinus rhythm on today's study. Ordering Physician: Teja Jefferson Referring Physician: Jayme Yang Performed By: Terri Butler, JOE, RVT
--- NOTE | 2020-02-02 08:48 | RDU_ITS ---
Reason For Study: HTN Right Renal Artery Left Renal Artery Right renal artery ostium Left renal artery ostium 66.1/18.6 111.8/22.3 RSV/EDV. PSV/EDV. Right renal artery proximal Left renal artery proximal PSV/EDV 120.9/25.9 PSV/EDV. 80.7/15.0 . Right renal artery mid 154.1/33.4 Left renal artery mid 93.5/25.9 PSV/EDV. PSV/EDV . Right renal artery distal 93.8/23.8 Left renal artery distal 83.9/26.8 PSV/EDV. PSV/EDV. Right RAR 2.1. Left RAR 1.3. Right Renal Parenchyma Left Renal Parenchyma Upper Pole Medula 30.0/8.0 PSV/EDV. Left upper pole medulla 16.1/5.0 Right upper pole medulla EDR .27 . PSV/EDV . Right upper pole medulla R.I. .73 . Left upper pole medulla EDR .31 . Upper Matt Cortx 26.7/6.6 PSV/EDV. Left upper pole medulla R.I. .69 . Right upper pole cortex EDR .25 . UP Cortex 15.5/5.0 PSV/EDV. Right upper pole cortex R.I. .75 . Left upper pole cortex EDR .33 . Right lower Pole medulla 16.6/7.5 Left upper pole cortex R.I. .67 . PSV/EDV . Left lower Pole medulla 32.1/7.5 Right lower pole medulla EDR .45 . PSV/EDV . Right lower pole medulla R.I. .55 . Left lower pole medulla EDR .23 . Lower Pole Cortex 21.2/7.5 PSV/EDV. Left lower pole medulla R.I. .77 . Right lower pole cortex EDR .35 . Lower Pole Cortx 16.1/5.7 PSV/EDV. Right lower pole cortex R.I. .65 . Left lower pole cortex EDR .35 . Right Renal Hilar Left lower pole cortex R.I. .65 . Right Hilar avg 44.3/10.6 PSV/EDV. Left Renal Hilar Right hilar acceleration time 80.0 LT Hilar avg 25.9/6.9 PSV/EDV . m/sec. Left hilar acceleration time 60.0 Right Renal Dimensions m/sec. Right kidney size 12.03 cm . Left Renal Dimensions Right cortical dimension 1.56 cm . Left kidney size 11.41 cm . Hypoechoic area on the upper pole Left cortical dimension 1.07 cm . measuring 1.51 x 2.31 cm. Area is Htpoechoic area on the lower pole nonvascular. measuring 1.31 x 1.42 cm. Area is nonvascular. Aorta Proximal abdominal aorta 1.24 x 1.35 cm . Proximal abdominal aorta peak systolic velocity is 73.9 cm/sec . Distal abdominal aorta 1.51 x 1.46 cm . Distal abdominal aorta peak systolic velocity is 111.8 cm/sec . Interpretation Summary There is no evidence of hemodynamically significant renal artery stenosis on either side. Ordering Physician: Teja Jefferson Performed By: Rikki Wilks RVT
== END ==
PROVIDERS: PCP Family Medicine; Referring Provider Nurse Practitioner Family; Visit Provider Nurse Practitioner Family
DX: I48.0 Paroxysmal atrial fibrillation (principal); I10 Essential (primary) hypertension; E78.5 Hyperlipidemia, unspecified; R07.9 Chest pain, unspecified; R06.09 Other forms of dyspnea
CPT/HCPCS: 93306; 93975

== ENCOUNTER → 2020-02-10 09:21 | Outpatient (CLI) | payer MEDICARE, OTHER, SELFPAY ==
[2019-12-24 12:27] VITALS: BMI 31.9
[2020-01-11 08:05] VITALS: BMI 31.6
--- NOTE | 2020-02-10 09:22 | STE_ITS ---
Stress Results Protocol: [facility] Protocol Maximum Predicted HR: 145 bpm Target HR: 123 bpm % Maximum Predicted HR: 87 % Heart Stage Duration Rate BP Comment (mm:ss) (bpm) X2 DOSES OF NITRO GIVEN S.L FOR ELEVATED BPS OF 192/92,188/88 AND BASELINE 62 148/82 182/86 STAGE 1 3:00 106 198/92 STAGE 2 2:31 126 242/100SOB NOTED RECOVERY 78 198/82 Stress Duration: 5:31 mm:ss Maximum Stress HR: 126 bpm Baseline Echocardiogram Findings The estimated ejection fraction is 65 %. Stress Echo Wall motion Data Resting WM Intermediate WM Stress WM Resting Wall Motion Wall Motion Stress No regional wall motion No regional wall motion abnormalities noted. abnormalities noted. EKG Data The baseline ECG displays normal sinus rhythm. The patient exercised according to the regular [facility] protocol for a total duration of 5:30. The maximum heart rate attained was 141 beats per minute. This was 97% of maximum predicted heart rate. The patient exercised into stage 2 of the [facility] protocol. During stress, there were no ST or T wave changes noted to suggest ischemia. No clinical angina was noted. Interpretation Summary The estimated ejection fraction is 65 %. Normal, adequate, treadmill echocardiogram. Negative for ischemia by EKG and echocardiographic anterior. No anginal symptoms noted. Rare PVC and ventricular couplets. Below average exercise capacity for age. Hypertensive blood pressure response to exercise. Test terminated due to exaggerated blood pressure response. Final LVEF is 75%. Patient tolerated procedure well. No complications. Ordering Physician: Teja Jefferson Referring Physician: Teja Jefferson
== END ==
PROVIDERS: PCP Family Medicine; Referring Provider Nurse Practitioner Family; Visit Provider Nurse Practitioner Family
DX: R07.9 Chest pain, unspecified (principal); R06.09 Other forms of dyspnea; I10 Essential (primary) hypertension; I48.0 Paroxysmal atrial fibrillation; E78.5 Hyperlipidemia, unspecified
CPT/HCPCS: 93017; 93350

== ENCOUNTER 2020-02-21 20:24 | Emergency (ER) | payer MEDICARE, OTHER, SELFPAY ==
[2020-02-15 11:37] VITALS: BMI 31.3
--- NOTE | 2020-02-21 20:28 | CT_ITS ---
We are attempting to reach an attending provider to discuss findings. An addendum with communication details will be sent when the communication is complete. STUDY: CT BRAIN WITHOUT CONTRAST REASON FOR EXAM: Male, 74 years old. ALTERED MENTAL STATUS RADIATION DOSAGE (If Supplied By Facility): CTDIvol = ( 44.99 ) mGy, DLP = ( 846.73 ) mGycm TECHNIQUE: Transaxial CT imaging of the brain was performed without administration of intravenous contrast material. Individualized dose optimization techniques were used for this CT. COMPARISON: Previous study of 06/24/2019 FINDINGS: Normal soft tissue structures. Normal calvarium. There is mild cerebral atrophy with widening of the extra-axial spaces and ventricular dilatation. There are areas of decreased attenuation within the white matter tracts of the supratentorial brain, consistent with microvascular disease changes. Normal basal ganglia and thalami. Normal brainstem. Normal cerebellum. There is no intracranial hemorrhage. There are no findings of an acute ischemic infarction. There is mild mucosal thickening of the right sphenoid sinus. There is a small polypoid filling defect of the right maxillary sinus. CT/Brain/Head without Contrast IMPRESSION: Chronic involutional changes of the brain. Mild right sphenoid chronic sinusitis. Small polypoid filling defect of the right maxillary sinus consistent with a mucoid retention cyst. Electronically Signed: Remy Leary MD at 20:48 EDT , Service support ,
--- NOTE | 2020-02-21 20:29 | EKG12_ITS ---
Test Reason : FALL Blood Pressure : / mmHG Vent. Rate : 072 BPM Atrial Rate : 072 BPM P-R Int : 190 ms QRS Dur : 106 ms QT Int : 416 ms P-R-T Axes : 045 -35 058 degrees QTc Int : 455 ms Normal sinus rhythm Left axis deviation Septal infarct , age undetermined Abnormal ECG Confirmed by ALBA LAUGHLIN, JAKE ([id number]), brands editor MANA LINTON ([id number]) on 02/23/2020 3:22:20 PM Referred By: NILO Confirmed By:JAKE WILLIS MD
--- NOTE | 2020-02-21 20:36 | CT_ITS ---
STUDY: CTA HEAD AND NECK WITH CONTRAST REASON FOR EXAM: Male, 74 years old. STROKE SX, AMS, FALL RADIATION DOSAGE (If Supplied By Facility): CTDIvol = ( 22.63 ) mGy, DLP = ( 816.8 ) mGycm TECHNIQUE: CT angiography was performed with a multi-detector CT scanner. Data acquisition was obtained from the skull base through the vertex following intravenous administration of 100ML ISOVUE 370. MIP images were reconstructed from the axial data set. Post-processing of the angiographic images was performed, with multiplanar reformation and 3D reconstruction. Sensitivity limited due to venous contamination. Individualized dose optimization techniques were used for this CT. COMPARISON: CT brain February 21, 2020 FINDINGS: Normal bilateral petrous carotid arteries. There is calcified plaque formation of the right cavernous carotid artery, with a severe stenosis (greater than 75%). Normal left cavernous carotid artery with a normal supraclinoid bifurcation. Normal right A1 segments of the anterior cerebral artery. Normal left A1 segments of the anterior cerebral artery. Normal intact anterior communicating artery (ACOM). Normal bilateral A2 segments of the anterior cerebral arteries. Normal right M1 and M2 segments of the middle cerebral arteries, with a normal M1 bifurcation. Normal left M1 and M2 segments of the middle cerebral arteries, with a normal M1 bifurcation. Normal right posterior communicating artery (PCOM). There is a persistent origin of the left posterior cerebral artery with absence of the posterior communicating artery (PCOM). Normal bilateral vertebral arteries. Normal basilar artery with a normal basilar bifurcation. The visualized bilateral superior cerebellar (SCA) arteries are normal. Normal bilateral P1, P2 and visualized P3 segments of the posterior cerebral arteries. There is no demonstrated aneurysm of the pilot station of [place]. There is no demonstrated abnormality of the visualized brain. AORTIC ARCH: Normal visualized aortic arch. Normal origins of the brachiocephalic, left common carotid, and left subclavian arteries. RIGHT CAROTID ARTERIES: Normal right common carotid artery (CCA). There is mild atherosclerotic plaque formation with minimal narrowing of the right carotid bulb. There is mild atherosclerotic plaque formation of the origin of the right internal carotid artery with less than 50% cross sectional diameter stenosis. Normal visualized cervical portion of the right internal carotid artery. Normal origin of the right external carotid artery (ECA). LEFT CAROTID ARTERIES: Normal left common carotid artery (CCA). Normal left common carotid bulb. Normal origin of the left internal carotid (ICA) artery without a hemodynamically significant stenosis. Normal visualized cervical portion of the left internal carotid artery. Normal origin of the left external carotid artery (ECA). VERTEBRAL ARTERIES: Severe stenosis cavernous segment right internal carotid artery. Moderate stenosis due to focal calcified plaque at the origin of the left vertebral artery. The remainder of the vertebral arteries appear normal bilaterally. Laminectomies and fusion hardware C4-5-[address]/CTA Head AND Neck W/ Contrast IMPRESSION: Moderate focal stenosis origin left vertebral artery otherwise no significant stenoses. Electronically Signed: Estuardo Gotti MD at 21:40 EDT , Service support ,
--- NOTE | 2020-02-21 20:36 | CT_ITS ---
STUDY: CT CERVICAL SPINE WITHOUT CONTRAST REASON FOR EXAM: Male, 74 years old. FALL, STROKE SX RADIATION DOSAGE (If Supplied By Facility): CTDIvol = ( 30.8 ) mGy, DLP = ( 1418.63 ) mGycm TECHNIQUE: High resolution transaxial imaging was performed without contrast material. Sagittal and coronal images were reconstructed. Individualized dose optimization techniques were used for this CT. COMPARISON: Prior study of 06/24/2019 FINDINGS: The study is technically limited secondary to scanning artifact caused by orthopedic hardware. Normal craniovertebral junction. Normal anterior atlantoaxial articulation. Normal odontoid process. Normal cervical lordosis. There is spinal fusion changes with rods and interpeduncular screws from C4 to C7. Status post laminectomy changes at these levels are also noted. C2-3: There are bilateral degenerative facet changes. There is no central canal stenosis or foraminal narrowing. Disc spacing is preserved. C3-4: Disc spacing is within normal limits. There are severe hypertrophic degenerative changes of the left facet with severe left foraminal narrowing. Moderately severe right foraminal narrowing is also noted. C4-5: There is mild disc space narrowing. There are bilateral hypertrophic degenerative facet changes. There is severe bilateral foraminal narrowing. C5-6: There is moderately severe disc space narrowing. There are bilateral hypertrophic degenerative facet changes. There is moderately severe bilateral foraminal narrowing. C6-7: There is severe disc space narrowing. There are bilateral degenerative facet changes. There is moderately severe bilateral foraminal narrowing. C7-T1: There is old moderately severe compression deformity with anterior wedging of T1. There is severe disc space narrowing. There are severe bilateral hypertrophic degenerative facet changes. There is severe bilateral foraminal narrowing. There is severe central canal stenosis There is an accessory azygos fissure of the right upper lobe representing an anatomical variant. CT/Spine Cervical without Contras IMPRESSION: Postsurgical and degenerative changes of the cervical spine as detailed above. There is no evidence of acute fracture or subluxation. Electronically Signed: Remy Leary MD at 21:34 EDT , Service support ,
[2020-02-21 20:51] VITALS: BP 152/61; PULSE 73; RESP 22; TEMP 36.7; O2SAT 90; BMI 33.1
[2020-02-21 20:56] LABS: Absolute Lymphocyte Count 2.48 X10^3/uL (0.83-4.51); Absolute Neutrophil Count 4.7 X10^3/uL (2.0-7.7); Basophil# 0.01 X10^3/uL; Basophil% 0.1 % (0-1); Eosinophil# 0.23 X10^3/uL; Eosinophils% 2.8 % (0-5); Hematocrit 35.2 % (40-54); Hemoglobin 11.2 g/dL (13.0-16.5); Lymphocyte # 2.48 X10^3/ul (4.0); Lymphocyte % 30.6 % (19-41); Mean Corp Hgb Conc 31.8 g/dL (32-36); Mean Corpuscular Hgb 28.8 pg (27.0-32.0); Mean Corpuscular Volume 90.5 fL (80-94); Mean Platelet Vol. 11.2 fl (6.2-12.0); Monocyte# 0.71 X10^3/uL; Monocyte% 8.8 % (0-10); NRBC Flagged by Analyzer 0 % (0-5); Neutrophil # 4.65 X10^3/uL (2.7-7.7); Neutrophil % 57.3 % (47-70); Platelet Count 243 K/mm3 (150-450); RBC Distribution Width CV 16.5 % (11.6-14.6); RBC Distribution Width SD 53.8 fl (35.1-43.9); Red Blood Count 3.89 M/mm3 (4.6-6.2); White Blood Count 8.1 K/mm3 (4.4-11.0)
[2020-02-21] MEDS: LORazepam 2 MG/ML Syringe 1 MG IV (21:01)
[2020-02-21 21:02] VITALS: BP 143/62; PULSE 70; RESP 18; O2SAT 95
[2020-02-21 21:02] LABS: International Normalized Ratio 1.2
[2020-02-21 21:03] LABS: Partial Thromboplast Time 39.7 Seconds (24.1-36.2)
[2020-02-21 21:05] VITALS: TEMP 36.8
[2020-02-21 21:15] LABS: ALB/GLOB Ratio 0.8 RATIO (0.9-2.4); AST(SGOT) 76 U/L (15-37); Alanine Aminotransfer ALT/SGPT 57 U/L (16-61); Albumin, Serum 3.5 g/dL (3.2-5.0); Alkaline Phosphatase 55 U/L (45-117); Anion Gap 7 (5-15); BUN 31 mg/dL (7-18); BUN/Creat Ratio 16.6 RATIO (10-20); Calcium,Total 8.8 mg/dL (8.5-10.1); Chloride 109 mmol/L (98-107); Creatinine, Serum 1.87 mg/dL (0.70-1.30); EST Glomerular Filtration Rate 38 mL/min (>60); Est Glom Filt Rate - Afr Amer 45 mL/min (>60); Estimated Creatinine Clearance 29.69 ml/min; Globulin 4.3 g/dL (2.2-4.2); Glucose 146 mg/dL (74-106); Potassium 3.5 mmol/L (3.5-5.1); Protein, Total 7.8 g/dL (6.4-8.2); Sodium Level 142 mmol/L (136-145)
[2020-02-21 21:27] LABS: Alcohol, Blood (Medical)-Serum < 3.0 mg/dL
--- NOTE | 2020-02-21 21:38 | RAD_ITS ---
STUDY: X-RAY CHEST REASON FOR EXAM: Male, 74 years old. Patients reports patient fell hitting his head. Patient has been unable to respond since the fall. Patient is on eliquis. TECHNIQUE: Single AP portable view of the chest. COMPARISON: Prior study of 09/21/2018 FINDINGS: night monitor leads are present. There is a limited inspiration. There is an accessory azygos fissure of the right upper lobe. There is no demonstrated pleural abnormality. There is mild cardiac enlargement. Normal mediastinum and corina. Normal visualized pulmonary arteries. Normal visualized aortic arch and descending thoracic aorta. There are diffuse degenerative changes of the visualized thoracic spine. Normal visualized ribs, clavicles, and shoulders. There is no demonstrated abnormality of the visualized soft tissue structures of the upper abdomen. RAD/Chest 1 View (Portable) IMPRESSION: Mild cardiomegaly. No acute cardiopulmonary disease process is seen. Electronically Signed: Remy Leary MD at 22:05 EDT , Service support ,
[2020-02-21 21:39] LABS: Color, Urine Yellow (Yellow); Glucose, Dipstick Normal (Normal); Ketone-Dipstick Negative (Negative); Leukocyte Esterase-Dipstick Negative /ul (Negative); Nitrite-Dipstick Negative (Negative); Occult Blood-Urine 150 /ul (Negative); Protein-Dipstick 30 mg/dl (Negative); Urine Bilirubin Dipstick Negative (Negative); Urine Clarity Clear (Clear); Urine Urobilinogen Normal (Normal)
[2020-02-21 21:54] LABS: Amphetamine Urine VISTA NEGATIVE (<1000 ng/mL); Barbiturate Urine VISTA NEGATIVE (< 200 ng/mL); Benzodiazepine Urine VISTA NEGATIVE (< 200 ng/mL); Cocaine Urine VISTA NEGATIVE (< 300 ng/mL); Ecstacy Urine VISTA NEGATIVE (< 500 ng/mL); Methadone Urine VISTA NEGATIVE (< 300 ng/mL); PCP Urine VISTA NEGATIVE (< 25 ng/mL); THC Urine VISTA NEGATIVE (< 50 ng/mL); Vista UDS pH Range 5
--- NOTE | 2020-02-21 21:55 | ED.VIS.GEN ---
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 At 805 patient was getting out of the chair when he tripped over the dog and fell hitting his head. states he landed very hard when he hit his head. Not clear if he had loss of consciousness. She sat him up and then he started to become altered. Patient was moving his hands and shaking them and looking all around but not making any sense. He did tell his know when she said she was going to call 911 and then he could drive her herself. With patient arrived to the ER he was significantly confused and would not answer any questions. Past Medical History - Allergies and Home Meds Allergies/Adverse Reactions: Allergies aspirin Allergy (Severe, Verified 02/21/20 21:34) Mouth swelling morphine Adverse Reaction (Severe, Verified 02/21/20 21:34) UNABLE TO URINATE Primary Care Physician: Jayme Yang MD [Primary Care Provider] - Past Medical History: - - Hypertension, atrial fibrillation, diabetes mellitus, hyperlipidemia, colitis, rheumatoid arthritis, dementia Surgical History: no surgical history, noncontributory, - - Fusion of the cervical spine, lumbar spine surgery, bilateral knee replacements, partial colon resection due to diverticulitis Lives: Spouse/ Significant Other Smoking Status: Former smoker - Family History Maternal Family History: Family History (Last Reviewed 02/15/20 @ 13:32 by ADRY Polanco) Mother Heart disease Diabetes Father Heart disease Lung disease Brother Heart disease Lung disease Cancer Sister Diabetes Cancer Family History: Reports: Heart Disease Paternal Family History: Family History (Last Reviewed 02/15/20 @ 13:32 by ADRY Polanco) Mother Heart disease Diabetes Father Heart disease Lung disease Brother Heart disease Lung disease Cancer Sister Diabetes Cancer Family History: Reports: COPD, Heart Disease Review of Systems ROS: Unable to Obtain - Secondary to mental status change Physical Exam Vital Signs/Narrative: Vital Signs Temp Pulse Resp BP Pulse Ox 02/21/20 21:05 98.2 F 02/21/20 21:02 70 18 143/62 H 95 02/21/20 20:51 98.1 F 73 22 H 152/61 H 90 Inital Vital Signs reviewed: Yes General: Well nourished, Well developed, No Acute Distress Head: Normocephalic, Atraumatic Eyes: - - Patient has a disconjugate gaze. Negative for: Perrl - Bilateral pupils are reactive however left pupil is more sluggish than the right ENT: Moist mucous membranes, No rhinorrhea, TM's clear, - - Hemotympanum, no septal hematoma, no signs of facial trauma Neck: Supple, Nontender, - - No step-off sign, normal range of motion Cardiovascular: Regular rate, Regular rhythm, No murmurs Respiratory: No distress, CTA bilaterally, Chest nontender Abdomen: Soft, Nontender, Nondistended, Normal bowel sounds Back: Nontender, Normal Inspection Extremities: Nontender, No edema, - - No deformity, pelvis is stable, lower extremities of equal length with no rotation Skin: Normal color, No rash. Negative for: Trauma Neurological: Normal Strength, Normal Sensation, Confused, Inattentive, - - Patient is altered, his GCS is 15 however he does not follow basic commands regularly and does not answer most questions but intermittently he will speak clear words. There are no focal neurologic deficits. He does not have seizure-like activity but he has repetitive jerking movements of his bilateral shoulders and hands almost like a spasm Diagnostic/Tx/Re-eval Chest X-Ray - ED: 1 View, Read by ED Physician, Read by Radiologist, No Acute Disease Clinical Impression(s) from Imaging Studies Brain CT 02/21/20 20:28 IMPRESSION: Chronic involutional changes of the brain. Mild right sphenoid chronic sinusitis. Small polypoid filling defect of the right maxillary sinus consistent with a mucoid retention cyst. Electronically Signed: Remy Leary MD at 20:48 EDT , Service support , ADDENDUM: 02/21/202056 IMPRESSION: Chronic involutional changes of the brain. Mild right sphenoid chronic sinusitis. Small polypoid filling defect of the right maxillary sinus consistent with a mucoid retention cyst. N.B. : The above information has been verbally conveyed by Remy Leary MD to Dr. Sabrina Tadeo MD, on 02/21/2020 20:50:32 (ET). Electronically Signed: Remy Leary MD at 20:48 EDT , Service support , Cervical Spine CT 02/21/20 20:36 IMPRESSION: Postsurgical and degenerative changes of the cervical spine as detailed above. There is no evidence of acute fracture or subluxation. Electronically Signed: Remy Leary MD at 21:34 EDT , Service support , Head/Neck CTA 02/21/20 20:36 IMPRESSION: Moderate focal stenosis origin left vertebral artery otherwise no significant stenoses. Electronically Signed: Estuardo Gotti MD at 21:40 EDT , Service support , Chest X-Ray 02/21/20 21:38 IMPRESSION: Mild cardiomegaly. No acute cardiopulmonary disease process is seen. Electronically Signed: Remy Leary MD at 22:05 EDT , Service support , Laboratory Data 02/21/20 02/21/20 02/21/20 20:30 20:30 20:30 WBC 8.1 RBC 3.89 L Hgb 11.2 L Hct 35.2 L MCV 90.5 MCH 28.8 MCHC 31.8 L RDW Std Deviation 53.8 H RDW Coeff of Azeem 16.5 H Plt Count 243 MPV 11.2 Immature Gran % (Auto) 0.400 Neut % (Auto) 57.3 Lymph % (Auto) 30.6 [place] % (Auto) 8.8 Eos % (Auto) 2.8 Baso % (Auto) 0.1 Absolute Neuts (auto) 4.7 Absolute Lymphs (auto) 2.48 Nucleated RBC % 0 PT 15.0 H INR 1.2 APTT 39.7 H Sodium 142 Potassium 3.5 Chloride 109 H Carbon Dioxide 26.0 Anion Gap 7 BUN 31 H Creatinine 1.87 H Estim Creat Clear Calc 29.69 Est GFR (MDRD) Af Amer 45 L Est GFR (MDRD) Non-Af 38 L BUN/Creatinine Ratio 16.6 Glucose 146 H Lactic Acid Calcium 8.8 Total Bilirubin 0.30 AST 76 H ALT 57 Alkaline Phosphatase 55 Troponin I 0.017 Total Protein 7.8 Albumin 3.5 Globulin 4.3 H Albumin/Globulin Ratio 0.8 L Urine Color Urine Clarity Urine pH Ur Specific [place] Urine Protein Urine Glucose (UA) Urine Ketones Urine Occult Blood Urine Nitrite Urine Bilirubin Urine Urobilinogen Ur Leukocyte Esterase Urine Opiates Screen Urine Methadone Screen Ur Barbiturates Screen Ur Phencyclidine Scrn Ur Amphetamines Screen U Methamphetamin-MDMA U Benzodiazepines Scrn Urine Cocaine Screen U Cannabinoids Screen Ur Drug Screen Comment Ethyl Alcohol Blood Type Antibody Screen 02/21/20 02/21/20 02/21/20 20:30 20:30 20:55 WBC RBC Hgb Hct MCV MCH MCHC RDW Std Deviation RDW Coeff of Azeem Plt Count MPV Immature Gran % (Auto) Neut % (Auto) Lymph % (Auto) [place] % (Auto) Eos % (Auto) Baso % (Auto) Absolute Neuts (auto) Absolute Lymphs (auto) Nucleated RBC % PT INR APTT Sodium Potassium Chloride Carbon Dioxide Anion Gap BUN Creatinine Estim Creat Clear Calc Est GFR (MDRD) Af Amer Est GFR (MDRD) Non-Af BUN/Creatinine Ratio Glucose Lactic Acid 2.3 H* Calcium Total Bilirubin AST ALT Alkaline Phosphatase Troponin I Total Protein Albumin Globulin Albumin/Globulin Ratio Urine Color Urine Clarity Urine pH Ur Specific [place] Urine Protein Urine Glucose (UA) Urine Ketones Urine Occult Blood Urine Nitrite Urine Bilirubin Urine Urobilinogen Ur Leukocyte Esterase Urine Opiates Screen Urine Methadone Screen Ur Barbiturates Screen Ur Phencyclidine Scrn Ur Amphetamines Screen U Methamphetamin-MDMA U Benzodiazepines Scrn Urine Cocaine Screen U Cannabinoids Screen Ur Drug Screen Comment Ethyl Alcohol < 3.0 Blood Type AB POSITIVE Antibody Screen NEGATIVE 02/21/20 02/21/20 21:30 21:30 WBC RBC Hgb Hct MCV MCH MCHC RDW Std Deviation RDW Coeff of Azeem Plt Count MPV Immature Gran % (Auto) Neut % (Auto) Lymph % (Auto) [place] % (Auto) Eos % (Auto) Baso % (Auto) Absolute Neuts (auto) Absolute Lymphs (auto) Nucleated RBC % PT INR APTT Sodium Potassium Chloride Carbon Dioxide Anion Gap BUN Creatinine Estim Creat Clear Calc Est GFR (MDRD) Af Amer Est GFR (MDRD) Non-Af BUN/Creatinine Ratio Glucose Lactic Acid Calcium Total Bilirubin AST ALT Alkaline Phosphatase Troponin I Total Protein Albumin Globulin Albumin/Globulin Ratio Urine Color Yellow Urine Clarity Clear Urine pH 5.0 Ur Specific [place] 1.010 Urine Protein 30 H Urine Glucose (UA) Normal Urine Ketones Negative Urine Occult Blood 150 H Urine Nitrite Negative Urine Bilirubin Negative Urine Urobilinogen Normal Ur Leukocyte Esterase Negative Urine Opiates Screen NEGATIVE Urine Methadone Screen NEGATIVE Ur Barbiturates Screen NEGATIVE Ur Phencyclidine Scrn NEGATIVE Ur Amphetamines Screen NEGATIVE U Methamphetamin-MDMA NEGATIVE U Benzodiazepines Scrn NEGATIVE Urine Cocaine Screen NEGATIVE U Cannabinoids Screen NEGATIVE Ur Drug Screen Comment Ethyl Alcohol Blood Type Antibody Screen - Rhythm Strip Rhythm Strip: Sinus Rhythm Rate: 72 Ectopy: None - EKG Initial EKG Interpretation: Sinus Rhythm, - - Normal sinus rhythm at a rate of 72 Normal intervals Left axis deviation Normal ST segments Compared to prior EKG on 09/22/2018 patient has slightly decreased amplitude but no other significant changes - Medical Decision Making Patient is evaluated for altered mental status after a mechanical fall. Patient is did hit his head and is on Eliquis. Patient's exam is most consistent with encephalopathy as he does not have a focal neurologic deficits. He is evaluated immediately at the bedside and sent to CT emergently for concern of intracranial bleed. This does not show any acute process. CT C-spine and CT of the head neck are also obtained. CT does show severe stenosis of the catheter segment of the right internal carotid artery and moderate focal stenosis of the origin of the left vertebral artery however I am not sure if this really explains his presentation. Patient is protecting his airway. He does have a slight lactic acidosis but his ABG does not show any respiratory acidosis. Work-up is otherwise largely unremarkable. He will be transferred to [facility] because he was a head injury that seem to cause his mental status change. Report is given to the ER physician who accepts the patient. Patient be evaluated in the ER with a trauma evaluation upon arrival. is agreeable this plan. Patient is otherwise stable emergency room. He is given 1 dose milligram IV Ativan in the ER with no significant change of symptoms. He is given IV fluids as well. - Critical Care Time Critical care time (excluding procedures): 30-74 minutes, Discussing w/Patient &/or Family/Choke Setter, Arranging Admission or Transfer, Performing Direct Patient Care at Bedside - 40 ED Disposition - Plan for ED Patient: Disposition: [facility] Diagnosis: Closed head injury, Altered mental status, Vertebral artery stenosis, Elevated serum creatinine Referrals: Jayme Yang MD [Primary Care Provider] -
[2020-02-21 22:00] VITALS: BP 135/59; PULSE 56; RESP 29; O2SAT 94
[2020-02-21] MEDS: 0.9% Normal Saline 1,000 ML 999 ML IV (22:15)
[2020-02-22 00:03] VITALS: BP 155/79; PULSE 79; RESP 18; O2SAT 97
[2020-02-22 00:04] VITALS: BP 155/79
[2020-02-22 03:14] LABS: Allen Test POS; Blood Gas Specimen Type ART; O2 Delivery Device Nasal Can; SITE L RADIAL
[2020-02-22 03:15] LABS: Base Excess 0 mmol/L (-2 to +2); Bicarbonate 24.8 mmol/L (22-26); PO2 73 mmHG (75-100); Time Given 2118; Total Carbon Dioxide 26 mmol/L; pCO2 41.9 mmHg (35-45); pH 7.38 (7.35-7.45)
[2020-02-22 03:16] LABS: SO2 94 % (95-99)
[2020-02-24 07:36] LABS: Bedside Glucose 138 mg/dL (70-110)
== END 2020-02-22 00:05 | disposition short-term general hospital (02) ==
PROVIDERS: Emergency Provider Emergency Medicine; PCP Family Medicine
DX: S09.90XA Unspecified injury of head, initial encounter (principal); W01.0XXA Fall on same level from slipping, tripping and stumbling without subsequent striking against object, initial encounter; Y93.89 Activity, other specified; Y92.9 Unspecified place or not applicable; I10 Essential (primary) hypertension; I65.02 Occlusion and stenosis of left vertebral artery; R41.82 Altered mental status, unspecified; R79.89 Other specified abnormal findings of blood chemistry; F03.90 Unspecified dementia, unspecified severity, without behavioral disturbance, psychotic disturbance, mood disturbance, and anxiety; I48.91 Unspecified atrial fibrillation; E11.9 Type 2 diabetes mellitus without complications; M06.9 Rheumatoid arthritis, unspecified; E78.5 Hyperlipidemia, unspecified; K52.9 Noninfective gastroenteritis and colitis, unspecified; Z90.49 Acquired absence of other specified parts of digestive tract; Z87.891 Personal history of nicotine dependence; Z79.01 Long term (current) use of anticoagulants; Z79.84 Long term (current) use of oral hypoglycemic drugs; Z79.899 Other long term (current) drug therapy
CPT/HCPCS: 36600; 51702; 70450; 70496; 70498; 71045; 72125; 80053; 80307; 80320; 81002; 82803; 82962; 83605; 84484; 85025; 85610; 85730; 86850; 86900; 86901; 93005; 96361; 96374; 99285; Q9967; A4216; G0480

== ENCOUNTER → 2020-02-29 09:17 | Outpatient (CLI) | payer MEDICARE, OTHER, SELFPAY ==
[2019-12-24 12:27] VITALS: BMI 31.9
[2020-02-21 20:51] VITALS: BMI 33.1
[2020-02-29 09:24] VITALS: BP 160/73; PULSE 81; RESP 16; TEMP 36.2; O2SAT 94; BMI 30.9
[2020-02-29] MEDS: 0.9% NaCl Peripheral Flush Adult/Peds IV ×2 (09:32→12:48)
== END ==
PROVIDERS: PCP Family Medicine; Referring Provider Internal Medicine Rheumatology; Visit Provider Internal Medicine Rheumatology
DX: M06.09 Rheumatoid arthritis without rheumatoid factor, multiple sites (principal); K51.80 Other ulcerative colitis without complications
CPT/HCPCS: 96413; 96415; J7050; A4216; Q5103

== ENCOUNTER → 2020-03-08 08:47 | Outpatient (CLI) | payer MEDICARE, OTHER, SELFPAY ==
[2020-02-29 09:24] VITALS: BMI 30.9
== END ==
PROVIDERS: PCP Family Medicine; Referring Provider Physician Assistant Medical; Visit Provider Physician Assistant Medical
DX: I10 Essential (primary) hypertension (principal)
CPT/HCPCS: 93788

== ENCOUNTER 2020-03-24 02:36 | Inpatient (IN) | payer MEDICARE, OTHER, SELFPAY ==
[2020-02-29 09:24] VITALS: BMI 30.9
[2020-03-24] VITALS (9 sets, daily range): BP systolic 143–193; BP diastolic 73–99; PULSE 58–77; RESP 16–18; TEMP 36.6–36.7; O2SAT 88–98; BMI 31.2; BMI 31.8; BMI 31.9
--- NOTE | 2020-03-24 02:48 | CT_ITS ---
STUDY: CT ABDOMEN AND PELVIS WITHOUT CONTRAST REASON FOR EXAM: Male, 74 years old. LEFT FLANK PAIN, HX KS IN PAST, COLON RESECTION DUE TO DIVERTICULITIS, DIAB, HTN HX RADIATION DOSAGE (If Supplied By Facility): CTDIvol = ( 11.64 ) mGy, DLP = ( 564.22 ) mGycm TECHNIQUE: Transaxial images were obtained from the dome of the diaphragm to the symphysis pubis without oral contrast, and without intravenous contrast. Sagittal and coronal images were reconstructed. Individualized dose optimization techniques were used for this CT. COMPARISON: None. FINDINGS: The visualized lung bases are unremarkable. The visualized portions of the heart are within normal limits. Normal liver. Normal gallbladder and extrahepatic biliary system. Normal spleen. Normal pancreas. Normal bilateral adrenal glands. There is a right renal cyst measures 2 cm. There is a stone in the right kidney measures 2 mm without hydronephrosis. There is a stone in the left kidney measures 11 mm. There is moderate left hydronephrosis due to 8 mm stone in the proximal left ureter. Normal visualized stomach. Normal small intestine. Normal colon. The appendix is visualized and appears normal. There is diffuse atherosclerotic calcification of the abdominal aorta, without a demonstrated aneurysm. Normal inferior vena cava. Normal retroperitoneum. Normal urinary bladder. Normal abdominal wall. There are diffuse degenerative changes of the visualized lumbar spine. CT/Abdomen/Pelvis without Cont IMPRESSION: There is a stone in the left kidney measures 11 mm. There is moderate left hydronephrosis due to 8 mm stone in the proximal left ureter. Electronically Signed: Shanika Morris, at 5:14 EDT Tel , Service support ,
--- NOTE | 2020-03-24 03:00 | ED.DCSUM_ITS ---
History of Present Illness Chief Complaint: Flank Pain Informant: Patient - Abdominal Pain/Flank Pain Onset: Hours - 6 or so Context: Sudden Onset Timing: Continuous Quality: Aching Location: Left Flank Current Severity: Severe Maximum Severity: Severe Worsened by: Nothing Relieved by: Nothing - Nausea/Vomiting/Emesis GI Symptom: Nausea, Vomiting Quality: Nonbilious. Negative for: Blood streaks, Coffee ground, Hematemesis - Diarrhea/Melena/Hematochezia GI Symptom: Negative for: Diarrhea, Melena, Hematochezia Associated Symptoms: Negative for: Dysuria, Hematuria Narrative: History is somewhat limited due to some dementia. The helps to provide some history. Has history of kidney stones and has had to have multiple procedures to remove them in the past. Indicating that his ribs and side/abdomen/back hurt on the left side. No trouble breathing, coughing recently, or chest pain. 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 Larson Surgical History: no surgical history, noncontributory, - - Fusion of the cervical spine, lumbar spine surgery, bilateral knee replacements, partial colon resection due to diverticulitis Smoking Status: Former smoker - Family History Maternal Family History: Family History (Last Reviewed 02/15/20 @ 13:32 by ADRY Polanco) Mother Heart disease Diabetes Father Heart disease Lung disease Brother Heart disease Lung disease Cancer Sister Diabetes Cancer Family History: Reports: Heart Disease Paternal Family History: Family History (Last Reviewed 02/15/20 @ 13:32 by ADRY Polanco) Mother Heart disease Diabetes Father Heart disease Lung disease Brother Heart disease Lung disease Cancer Sister Diabetes Cancer Family History: Reports: COPD, Heart Disease Review of Systems ROS: Unable to Obtain - unable to fully obtain due to dementia General: Denies: Chills, Fever, Sweats Cardiovascular: Denies: Chest pain, Palpitations Respiratory: Denies: Dyspnea, Cough Gastrointestinal: Reports: Abdominal pain, Nausea, Vomiting. Denies: Diarrhea Musculoskeletal: Reports: Back pain. Denies: Neck pain, Swelling, Extremity Pain Skin: Denies: Rash, Wounds Neurological: Denies: Headache, Weakness, Numbness Physical Exam Vital Signs/Narrative: Vital Signs Temp Pulse Resp BP Pulse Ox 03/24/20 02:37 97.8 F 77 18 152/99 H 94 Inital Vital Signs reviewed: Yes General: Well nourished, Well developed, Acute Distress - mild, painful, and vomiting Head: Normocephalic, Atraumatic Eyes: Perrl, EOMI ENT: Moist mucous membranes, No rhinorrhea Neck: Supple, Nontender Cardiovascular: Regular rate, Regular rhythm, No murmurs Respiratory: No distress, CTA bilaterally, Chest nontender Abdomen: Soft, Nondistended, Normal bowel sounds, No masses, Tender - throughout left side, mild. Negative for: Guarding, Rebound tenderness, Pulsatile mass Back: Normal Inspection, CVA tenderness - left only Extremities: Nontender, No edema Skin: Normal color, No rash Neurological: Alert, Cranial nerves II-XII grossly intact, Normal Strength, Normal Sensation, Normal Gait, Disoriented - at baseline per Psychological: Normal affect, Normal Mood Diagnostic/Tx/Re-eval Clinical Impression(s) from Imaging Studies Abdomen/Pelvis CT 03/24/20 02:48 IMPRESSION: There is a stone in the left kidney measures 11 mm. There is moderate left hydronephrosis due to 8 mm stone in the proximal left ureter. Electronically Signed: Shanika Morris, at 5:14 EDT Tel , Service support , Laboratory Tests 06/25/20 06/25/20 06/25/20 Range/Units 03:05 02:45 02:45 WBC 12.2 H (4.4-11.0) K/mm3 RBC 4.06 L (4.6-6.2) M/mm3 Hgb 11.8 L (13.0-16.5) g/dL Hct 36.2 L (40-54) % MCV 89.2 (80-94) fL MCH 29.1 (27.0-32.0) pg MCHC 32.6 (32-36) g/dL RDW Std Deviation 51.4 H (35.1-43.9) fl RDW Coeff of Azeem 15.7 H (11.6-14.6) % Plt Count 208 (150-450) K/mm3 MPV 11.7 (6.2-12.0) fl Immature Gran % (Auto) 0.300 (0.0-0.9) % Neut % (Auto) 73.6 H (47-70) % Lymph % (Auto) 16.7 L (19-41) % [place] % (Auto) 8.0 (0-10) % Eos % (Auto) 1.2 (0-5) % Baso % (Auto) 0.2 (0-1) % Absolute Neuts (auto) 9.0 H (2.0-7.7) X10^3/uL Absolute Lymphs (auto) 2.04 (0.83-4.51) X10^3/uL Nucleated RBC % 0 (0-5) % Sodium 139 (136-145) mmol/L Potassium 3.4 L (3.5-5.1) mmol/L Chloride 102 (98-107) mmol/L Carbon Dioxide 29.0 (21.0-32.0) mmol/L Anion Gap 8 (5-15) BUN 24 H (7-18) mg/dL Creatinine 1.87 H (0.70-1.30) mg/dL Estim Creat Clear Calc 31.91 ml/min Est GFR (MDRD) Af Amer 45 L (>60) mL/min Est GFR (MDRD) Non-Af 38 L (>60) mL/min BUN/Creatinine Ratio 12.8 (10-20) RATIO Glucose 121 H (74-106) mg/dL Calcium 9.1 (8.5-10.1) mg/dL Urine Color Yellow (Yellow) Urine Clarity Clear (Clear) Urine pH 8.0 (5.0 - 8.0) Ur Specific [place] 1.015 (1.002-1.030) Urine Protein 100 H (Negative) mg/dl Urine Glucose (UA) Normal (Normal) mg/dl Urine Ketones Negative (Negative) mg/dl Urine Occult Blood 25 H (Negative) /ul Urine Nitrite Negative (Negative) Urine Bilirubin Negative (Negative) mg/dL Urine Urobilinogen Normal (Normal) mg/dl Ur Leukocyte Esterase Negative (Negative) /ul Urine RBC 0-5 SEEN (0-5) /hpf Urine WBC 0-5 SEEN (0-5) /hpf Ur Squamous Epith Cells 0 SEEN (0-5) /hpf Urine Bacteria 0 SEEN (None Seen) /hpf Urine Mucus 0 SEEN (<or=2+) /hpf - Medical Decision Making Patient states he did not do well with morphine but does not sound like he has a true allergy. Regardless he was given Dilaudid for pain 0.5 mg, did not seem to help. He was given another 1 mg. He said it helped a little, but he was still in a lot of discomfort, no distress. CT report is still pending, on my interpretation of the images it appears to show a 5 mm mid ureteral stone on the left with hydronephrosis and hydroureter (as above, 8mm per radiology). I think admitting him for pain control would be gordon. Patient and are in agreement. Discussed with his urologist Dr. Larson, he is amenable. ED Disposition - Plan for ED Patient: Disposition: [facility] Diagnosis: Ureterolithiasis, Renal colic on left side, Intractable pain
[2020-03-24] MEDS: HYDROmorphone 0.5 MG/0.5 ML SYRINGE IV (03:04)
[2020-03-24] MEDS: 0.9% Normal Saline 1,000 ML 250 ML IV (03:04)
[2020-03-24] MEDS: Ondansetron 4 MG/2 ML Vial IV (03:04)
[2020-03-24 03:11] LABS: Bacteria 0 SEEN /hpf (None Seen); Mucous, Urine 0 SEEN /hpf (<or=2+); Squamous Epithelial Cells - UA 0 SEEN /hpf (0-5)
[2020-03-24 03:15] LABS: Absolute Lymphocyte Count 2.04 X10^3/uL (0.83-4.51); Basophil# 0.03 X10^3/uL; Basophil% 0.2 % (0-1); Eosinophil# 0.15 X10^3/uL; Eosinophils% 1.2 % (0-5); Hematocrit 36.2 % (40-54); Hemoglobin 11.8 g/dL (13.0-16.5); Lymphocyte # 2.04 X10^3/ul (4.0); Lymphocyte % 16.7 % (19-41); Mean Corp Hgb Conc 32.6 g/dL (32-36); Mean Corpuscular Hgb 29.1 pg (27.0-32.0); Mean Corpuscular Volume 89.2 fL (80-94); Mean Platelet Vol. 11.7 fl (6.2-12.0); Monocyte# 0.98 X10^3/uL; NRBC Flagged by Analyzer 0 % (0-5); Neutrophil # 8.95 X10^3/uL (2.7-7.7); Neutrophil % 73.6 % (47-70); Platelet Count 208 K/mm3 (150-450); RBC Distribution Width CV 15.7 % (11.6-14.6); RBC Distribution Width SD 51.4 fl (35.1-43.9); Red Blood Count 4.06 M/mm3 (4.6-6.2); White Blood Count 12.2 K/mm3 (4.4-11.0)
[2020-03-24 03:19] LABS: Color, Urine Yellow (Yellow); Glucose, Dipstick Normal (Normal); Ketone-Dipstick Negative (Negative); Leukocyte Esterase-Dipstick Negative /ul (Negative); Nitrite-Dipstick Negative (Negative); Occult Blood-Urine 25 /ul (Negative); Protein-Dipstick 100 mg/dl (Negative); Specific Gravity, Urine 1.015 (1.002-1.030); Urine Bilirubin Dipstick Negative (Negative); Urine Clarity Clear (Clear); Urine Urobilinogen Normal (Normal)
[2020-03-24 03:24] LABS: Anion Gap 8 (5-15); BUN 24 mg/dL (7-18); BUN/Creat Ratio 12.8 RATIO (10-20); Calcium,Total 9.1 mg/dL (8.5-10.1); Chloride 102 mmol/L (98-107); Creatinine, Serum 1.87 mg/dL (0.70-1.30); EST Glomerular Filtration Rate 38 mL/min (>60); Est Glom Filt Rate - Afr Amer 45 mL/min (>60); Estimated Creatinine Clearance 31.91 ml/min; Glucose 121 mg/dL (74-106); Potassium 3.4 mmol/L (3.5-5.1); Sodium Level 139 mmol/L (136-145)
[2020-03-24 03:25] LABS: Red Blood Cells-Urine 0-5 SEEN /hpf (0-5); White Blood Cells 0-5 SEEN /hpf (0-5)
[2020-03-24] MEDS: HYDROmorphone 1 MG/ML Syringe IV (04:10)
[2020-03-24] MEDS: 0.9% Normal Saline 1,000 ML 75 ML IV ×2 (06:38→18:28)
[2020-03-24] MEDS: 0.9% Saline Lock 10 ML Syringe IV (06:39)
[2020-03-24] MEDS: Ketorolac 15 MG/ML Vial IV ×2 (06:39→22:04)
--- NOTE | 2020-03-24 07:36 | PCM.HP.STD ---
Problem List (1) Kidney stones Status: Chronic History of Present Illness Date of Admission: 03/24/20 Chief Complaint: Left obstructive ureteral calculi and left renal calculi left hydronephrosis The patient is a 74 year old male presented with obstructing stone in the proximal ureter with severe flank pain ER called me and asked to admit the patient because it could not get the pain under control. He has an obstructing stone with hydronephrosis and high-grade obstruction. We will get a KUB today. Plan for ureteroscopy and laser tomorrow. Past Medical History Past Medical History (Chronic Problems): Chronic Problems (Last Reviewed 02/15/20 @ 13:32 by ADRY Polanco) Kidney stones (Chronic) Dementia (Chronic) Essential hypertension (Chronic) Pulmonary hypertension (Chronic) RVSP 40 mmHg SUPA (obstructive sleep apnea) (Chronic) CPAP 15 cm of water Diverticula of colon (Chronic) Colitis (Chronic) Atrial fibrillation with RVR (Chronic) DM2 (diabetes mellitus, type 2) (Chronic) Hyperlipidemia (Chronic) Inflammatory bowel disease (Chronic) Benign essential HTN (Chronic) Rheumatoid aortitis (Chronic) Medical History: Medical History (Last Reviewed 03/24/20 @ 07:[address] Surinder Larson MD) Essential hypertension (Chronic) I10 Diverticula of colon (Chronic) K57.30 Colitis (Chronic) K52.9 Bronchitis (Acute) J40 Atrial fibrillation with RVR (Chronic) I48.91 Rhinovirus (Acute) B34.8 Severe sepsis (Acute) A41.9, R65.20 Acute respiratory insufficiency (Acute) R06.89 DM2 (diabetes mellitus, type 2) (Chronic) E11.9 Hyperlipidemia (Chronic) E78.5 Inflammatory bowel disease (Chronic) K52.9 Benign essential HTN (Chronic) I10 Rheumatoid aortitis (Chronic) I01.1 Hypertensive urgency (Resolved) I16.0 Allergies aspirin Allergy (Severe, Verified 03/24/20 02:41) Mouth swelling donepezil [From Aricept] Adverse Reaction (Severe, Verified 03/24/20 02:41) Swelling morphine Adverse Reaction (Severe, Verified 03/24/20 02:41) UNABLE TO URINATE Home Medications: Ambulatory Orders Medication Instructions Recorded Infliximab-DYYB [Inflectra] 100 mg IV .COMPLEX 02/18/17 Esomeprazole Magnesium [Nexium 20 mg PO DAILY 07/17/17 24Hr] Loratadine [Claritin] 10 mg PO QHS 04/15/17 Glimepiride [Amaryl] 2 mg PO DAILY 01/22/18 Balsalazide Disodium 750 mg PO BID 09/17/18 Multivit-Min/FA/Lycopen/Lutein 1 ea PO DAILY 09/17/18 [Centrum Silver Men Tablet] calcium carbonate-vitamin D3 600 1 tab PO DAILY 06/02/19 mg (1,500 mg)-800 unit tablet duloxetine 60 mg capsule,delayed 60 mg PO DAILY 06/02/19 release gabapentin 600 mg tablet 600 mg PO BID tab 06/02/19 metformin 1,000 mg tablet 1,000 mg PO BID tab 10/06/19 clonidine HCl 0.3 mg tablet 0.3 mg PO TID #90 tab 12/24/19 Ipratropium [place] 15 ml NS PRN PRN 01/11/20 Amiodarone HCl 200 mg PO DAILY 03/24/20 Apixaban [Eliquis] 5 mg PO BID 03/24/20 Diltiazem HCl [Tiazac] 360 mg PO DAILY 03/24/20 DiphenhydrAMINE [Benadryl] 25 mg PO BID PRN PRN 03/24/20 Hydralazine HCl 100 mg PO TID 03/24/20 Hydrochlorothiazide [Hctz] 25 mg PO DAILY 03/24/20 Isosorbide Mononitrate [Isosorbide 60 mg PO DAILY 03/24/20 Mononitrate ER] Lisinopril 40 mg PO DAILY 03/24/20 Rosuvastatin Calcium 20 mg PO DAILY 03/24/20 Surgical History: Surgical History (Last Reviewed 03/24/20 @ 07:[address] Surinder Larson MD) History of bilateral knee replacement (Resolved) Z96.653 History of back surgery (Resolved) Z98.890 Cervical vertebral fusion (Resolved) M43.22 History of removal of cyst (Resolved) Z98.890 Surgical History: no surgical history, noncontributory, - - Fusion of the cervical spine, lumbar spine surgery, bilateral knee replacements, partial colon resection due to diverticulitis Psychiatric History: No pertinent psych hx Smoking Status: Former smoker Tobacco Use: Cigarettes - *Family History Maternal Family History: Family History (Last Reviewed 03/24/20 @ 07:[address] Surinder Larson MD) Mother Heart disease Diabetes Father Heart disease Lung disease Brother Heart disease Lung disease Cancer Sister Diabetes Cancer History Items: Heart Disease Paternal Family History: Family History (Last Reviewed 03/24/20 @ 07:[address] Surinder Larson MD) Mother Heart disease Diabetes Father Heart disease Lung disease Brother Heart disease Lung disease Cancer Sister Diabetes Cancer History Items: COPD, Heart Disease Review of Systems Constitutional: Denies: Chills, Fever, Weight Change HEENT: Denies: Head Aches, Sinus Congestion, Sinus Drainage Cardiovascular: Denies: Chest Pain, Palpitations Respiratory: Denies: Cough, Shortness of breath at rest, Sputum production Gastrointestinal: Denies: Abdominal Pain, Nausea, Vomiting Genitourinary: Denies: Dysuria Musculoskeletal: Denies: Joint Pain, Joint Tenderness Skin: Denies: Rash, Wounds Neurological: Denies: Numbness, Tingling, Focal weakness Psychiatric: Denies: Anxiety, Depression, Homicidal Ideations, Suicidal Ideations Hematologic/ Lymphatic: Denies: Easy Bruising, Easy Bleeding VTE Information - Inpt Only VTE Present on Admission: No VTE Mechan Device Prophylaxis: SCD's Patient Problems: Active and Suspected Problems (Last Reviewed 02/15/20 @ 13:32 by ADRY Polanco) Ureterolithiasis (Acute) Renal colic on left side (Acute) Intractable pain (Acute) - Physical Exam Vitals/I&O's: Vital Signs Temp Pulse Resp BP Pulse Ox 98 F 66 18 193/87 H 96 03/24/20 05:58 03/24/20 05:58 03/24/20 05:58 03/24/20 05:58 03/24/20 05:58 Oxygen Flow Rate (L/min) 2 Oxygen Delivery Method Nasal Cannula Weight: 86.9 kg Body Mass Index (BMI) 31.8 Finger Stick Blood Glucose 151 Intake and Output for Last 24 Hours 03/22/20 03/23/20 03/24/20 23:59 23:59 23:59 Intake Total 891.67 / 891.67 Output Total 300 / 300 Balance 591.67 / 591.67 General: Alert, Oriented x3, Cooperative HEENT: Atraumatic, PERRLA, EOMI, Normocephalic Neck: Supple, No JVD, Negative Carotid Bruits Lungs: Clear to auscultation, Normal air movement Cardiovascular: Regular rate, No murmurs Abdomen: Bowel Sounds Present, Soft, Non Tender Extremities: No edema, Capillary Refill Less than 3 Seconds Skin: No rashes, No breakdown Musculoskeletal: No Tenderness to Palpation of Joints or Extremities Neurological: Cranial nerves II-XII grossly intact Psych/Mental Status: Normal Affect, Appropriate Laboratory Results 03/24/20 02:45: WBC 12.2 H, RBC 4.06 L, Hgb 11.8 L, Hct 36.2 L, MCV 89.2, MCH 29.1, MCHC 32.6, RDW Std Deviation 51.4 H, RDW Coeff of Azeem 15.7 H, Plt Count 208, MPV 11.7, Immature Gran % (Auto) 0.300, Neut % (Auto) 73.6 H, Lymph % (Auto) 16.7 L, [place] % (Auto) 8.0, Eos % (Auto) 1.2, Baso % (Auto) 0.2, Absolute Neuts (auto) 9.0 H, Absolute Lymphs (auto) 2.04, Nucleated RBC % 0 03/24/20 02:45: Sodium 139, Potassium 3.4 L, Chloride 102, Carbon Dioxide 29.0, Anion Gap 8, BUN 24 H, Creatinine 1.87 H, Estim Creat Clear Calc 31.91, Est GFR (MDRD) Af Amer 45 L, Est GFR (MDRD) Non-Af 38 L, BUN/Creatinine Ratio 12.8, Glucose 121 H, Calcium 9.1 03/24/20 03:05: Urine Color Yellow, Urine Clarity Clear, Urine pH 8.0, Ur Specific [place] 1.015, Urine Protein 100 H, Urine Glucose (UA) Normal, Urine Ketones Negative, Urine Occult Blood 25 H, Urine Nitrite Negative, Urine Bilirubin Negative, Urine Urobilinogen Normal, Ur Leukocyte Esterase Negative, Urine RBC 0-5 SEEN, Urine WBC 0-5 SEEN, Ur Squamous Epith Cells 0 SEEN, Urine Bacteria 0 SEEN, Urine Mucus 0 SEEN Current Medications Amiodarone HCl (Cordarone) 200 mg PO DAILY [facility] Diphenhydramine HCl (Benadryl) 25 mg PO BID PRN PRN PRN Reason: reaction Duloxetine HCl (Cymbalta) 60 mg PO DAILY [facility] Gabapentin (Neurontin) 600 mg PO BID [facility] Glimepiride (Amaryl) 2 mg PO DAILY [facility] Hydrochlorothiazide (Hctz) 25 mg PO DAILY [facility] Hydromorphone HCl (Dilaudid Inj) 0.5 mg IV Q2H PRN PRN PRN Reason: Pain Score 6-10/10 Sodium Chloride () 1,000 mls @ 75 mls/hr IV .[id number] [facility] Last Admin: 03/24/20 06:38 Dose: 75 mls/hr Documented by: Ipratropium [place] (Atrovent Nasal [place] (G)) spray NASAL PRN PRN PRN Reason: CONGESTION Isosorbide Mononitrate (Imdur) 60 mg PO DAILY [facility] Ketorolac Tromethamine (Toradol (Bkc)) 15 mg IV Q6H PRN PRN PRN Reason: PAIN (1-10) Stop: 03/29/20 06:25 Last Admin: 03/24/20 06:39 Dose: 15 mg Documented by: Lisinopril (Zestril) 40 mg PO DAILY [facility] Loratadine (Claritin) 10 mg PO QHS [facility] Non-Formulary Medication (Balsalazide Disodium) 750 mg PO BID [facility] Non-Formulary Medication (Calcium Carbonate/Vitamin D3 [Calcium 600-Vit D3 800 Tablet]) 1 tab PO DAILY [facility] Non-Formulary Medication (Clonidine Hcl) 0.3 mg PO TID [facility] Non-Formulary Medication (Diltiazem Hcl [Tiazac]) 360 mg PO DAILY [facility] Non-Formulary Medication (Esomeprazole Magnesium [Nexium 24hr]) 20 mg PO DAILY [facility] Non-Formulary Medication (Hydralazine Hcl) 100 mg PO TID [facility] Non-Formulary Medication (Multivit-Min/Fa/Lycopen/Lutein [Centrum Silver Men Tablet]) 1 ea PO DAILY [facility] Non-Formulary Medication (Rosuvastatin Calcium) 20 mg PO DAILY [facility] Ondansetron HCl (Zofran) 4 mg IV Q6H PRN PRN PRN Reason: nausea/vomiting Sodium Chloride () 10 - 40 ml IV UD PRN PRN Reason: SALINE FLUSH Last Admin: 03/24/20 06:39 Dose: 10 ml Documented by: Assessment/Plan All Active Problems (Last Reviewed 02/15/20 @ 13:32 by ADRY Polanco) Ureterolithiasis (Acute) Renal colic on left side (Acute) Intractable pain (Acute) Asymptomatic hypertensive urgency (Acute) History of bilateral knee replacement (Resolved) History of back surgery (Resolved) Cervical vertebral fusion (Resolved) History of removal of cyst (Resolved) Bronchitis (Acute) Rhinovirus (Acute) Severe sepsis (Acute) Acute respiratory insufficiency (Acute) Chest tightness (Resolved) Hypertensive urgency (Resolved) Left wrist pain (Resolved) Syncopal episodes (Resolved) Ureteral calculus, right (Resolved) Assessment and plan, 74-year-old male with multiple medical problems. Hypertension?restart blood pressure medications expect have high blood pressure as he does run very high. Could use extra doses of hydralazine as needed. Blood thinners will hold his Eliquis in anticipation for surgery tomorrow. Kidney stone, plan to check a KUB today see location of stone will plan for laser and stent tomorrow. N.p.o. at midnight plan for surgery for tomorrow. With ureteroscopy and laser and stent.
[2020-03-24] MEDS: Amiodarone 200 MG Tablet PO (10:37)
[2020-03-24] MEDS: Lisinopril 40 MG Tablet PO (10:38)
[2020-03-24] MEDS: Pantoprazole Sodium 20 MG Tablet PO (10:38)
[2020-03-24] MEDS: Isosorbide Mononitrate 60 MG Tablet PO (10:38)
[2020-03-24] MEDS: hydroCHLOROthiazide 25 MG Tablet PO (10:38)
[2020-03-24] MEDS: dilTIAZem CD 180 MG Capsule 360 MG PO (10:38)
[2020-03-24] MEDS: Calcium Carb/Vitamin D 1 TABLET Tablet PO (10:39)
[2020-03-24] MEDS: DULoxetine Hcl 60 MG Capsule PO (10:39)
[2020-03-24] MEDS: Gabapentin 600 MG Tablet PO ×2 (10:39→21:57)
[2020-03-24] MEDS: BALSALAZIDE DISODIUM 750 MG CAPSULE PO ×2 (14:26→21:59)
[2020-03-24] MEDS: Clonidine HCl 0.1 MG, Clonidine HCl 0.2 MG 0.3 MG PO ×2 (14:27→21:57)
[2020-03-24] MEDS: hydrALAZINE 50 MG Tablet 100 MG PO ×2 (14:27→21:59)
[2020-03-24] MEDS: Atorvastatin Calcium 40 MG Tablet PO (21:57)
[2020-03-24] MEDS: Loratadine 10 MG Tablet PO (21:57)
[2020-03-25] VITALS (30 sets, daily range): BP systolic 116–206; BP diastolic 54–102; PULSE 24–88; RESP 16–24; TEMP 36.4–37.4; O2SAT 89–137; BMI 31.8; BMI 31.9
[2020-03-25] MEDS: 0.9% Saline Lock 10 ML Syringe IV (02:28)
[2020-03-25] MEDS: Ketorolac 15 MG/ML Vial IV (04:44)
[2020-03-25] MEDS: Ondansetron 4 MG/2 ML Vial IV (04:48)
[2020-03-25 05:31] LABS: Absolute Lymphocyte Count 1.48 X10^3/uL (0.83-4.51); Absolute Neutrophil Count 6.4 X10^3/uL (2.0-7.7); Basophil# 0.01 X10^3/uL; Basophil% 0.1 % (0-1); Eosinophil# 0.15 X10^3/uL; Eosinophils% 1.7 % (0-5); Hematocrit 29.9 % (40-54); Hemoglobin 9.6 g/dL (13.0-16.5); Lymphocyte # 1.48 X10^3/ul (4.0); Lymphocyte % 16.3 % (19-41); Mean Corp Hgb Conc 32.1 g/dL (32-36); Mean Corpuscular Hgb 29.2 pg (27.0-32.0); Mean Corpuscular Volume 90.9 fL (80-94); Mean Platelet Vol. 11.7 fl (6.2-12.0); NRBC Flagged by Analyzer 0 % (0-5); Neutrophil # 6.39 X10^3/uL (2.7-7.7); Neutrophil % 70.6 % (47-70); Platelet Count 159 K/mm3 (150-450); RBC Distribution Width CV 15.5 % (11.6-14.6); RBC Distribution Width SD 51.2 fl (35.1-43.9); Red Blood Count 3.29 M/mm3 (4.6-6.2); White Blood Count 9.1 K/mm3 (4.4-11.0)
[2020-03-25 05:44] LABS: Anion Gap 6 (5-15); BUN 32 mg/dL (7-18); Calcium,Total 8.2 mg/dL (8.5-10.1); Chloride 105 mmol/L (98-107); Creatinine, Serum 1.88 mg/dL (0.70-1.30); EST Glomerular Filtration Rate 37 mL/min (>60); Est Glom Filt Rate - Afr Amer 45 mL/min (>60); Estimated Creatinine Clearance 29.53 ml/min; Glucose 102 mg/dL (74-106); Potassium 3.2 mmol/L (3.5-5.1); Sodium Level 139 mmol/L (136-145)
--- NOTE | 2020-03-25 05:55 | EKG12_ITS ---
Test Reason : AM EKG Blood Pressure : / mmHG Vent. Rate : 054 BPM Atrial Rate : 054 BPM P-R Int : 178 ms QRS Dur : 098 ms QT Int : 504 ms P-R-T Axes : -02 -29 012 degrees QTc Int : 477 ms Sinus bradycardia Leftward axis Septal OR, age undetermined Confirmed by ROMAN LAUGHLIN, SUMEET ([id number]), editorial director CRISTI ROOT ([id number]) on 03/29/2020 11:18:18 AM Referred By: Surinder Larson Confirmed By:SUMEET OWENS MD
[2020-03-25] MEDS: 0.9% Normal Saline 1,000 ML 75 ML IV ×2 (06:40→12:59)
[2020-03-25] MEDS: hydrALAZINE 50 MG Tablet 100 MG PO ×3 (06:44→22:08)
[2020-03-25] MEDS: Clonidine HCl 0.1 MG, Clonidine HCl 0.2 MG 0.3 MG PO ×3 (06:44→22:10)
[2020-03-25 09:21] LABS: Magnesium 2.1 mg/dL (1.6-2.6)
[2020-03-25] MEDS: Potassium Chloride 10mEq/100mL 10 MEQ/100 ML IV.SOLN. 100 MEQ IV BOLUS ×2 (09:25→10:28)
--- NOTE | 2020-03-25 10:05 | PCM.PROGNOTE ---
Patient Problems: Active and Suspected Problems (Last Reviewed 03/24/20 @ 07:[address] Surinder Larson MD) Ureterolithiasis (Acute) Renal colic on left side (Acute) Intractable pain (Acute) Subjective: KUB reviewed stone difficult to see plan to proceed with left ureteroscopy and laser lithotripsy of stone and stent - Physical Exam Vitals/I&O's: Vital Signs Temp Pulse Resp BP Pulse Ox 98.0 F 55 L 18 118/54 L 94 03/25/20 08:04 03/25/20 08:04 03/25/20 08:04 03/25/20 08:04 03/25/20 08:04 Oxygen Flow Rate (L/min) 2 Oxygen Delivery Method Nasal Cannula Weight: 86.9 kg Body Mass Index (BMI) 31.8 Finger Stick Blood Glucose 151 Intake and Output for Last 24 Hours 03/23/20 03/24/20 03/25/20 23:59 23:59 23:59 Intake Total 2419.17 / 2669.17 1151.25 / 1151.25 Output Total 1100 / 1725 1275 / 1275 Balance 1319.17 / 944.17 -123.75 / -123.75 General: Alert, Oriented x3, Cooperative HEENT: Atraumatic, PERRLA, EOMI, Normocephalic Neck: Supple, No JVD, Negative Carotid Bruits Lungs: Clear to auscultation, Normal air movement Cardiovascular: Regular rate, No murmurs Abdomen: Bowel Sounds Present, Soft, Non Tender Extremities: No edema, Capillary Refill Less than 3 Seconds Skin: No rashes, No breakdown Musculoskeletal: No Tenderness to Palpation of Joints or Extremities Neurological: Cranial nerves II-XII grossly intact Psych/Mental Status: Normal Affect, Appropriate Laboratory Results 03/25/20 05:08: WBC 9.1, RBC 3.29 L, Hgb 9.6 L, Hct 29.9 L, MCV 90.9, MCH 29.2, MCHC 32.1, RDW Std Deviation 51.2 H, RDW Coeff of [place] 15.5 H, Plt Count 159, MPV 11.7, Immature Gran % (Auto) 0.300, Neut % (Auto) 70.6 H, Lymph % (Auto) 16.3 L, [place] % (Auto) 11.0 H, Eos % (Auto) 1.7, Baso % (Auto) 0.1, Absolute Neuts (auto) 6.4, Absolute Lymphs (auto) 1.48, Nucleated RBC % 0 03/25/20 05:08: Sodium 139, Potassium 3.2 L, Chloride 105, Carbon Dioxide 28.0, Anion Gap 6, BUN 32 H, Creatinine 1.88 H, Estim Creat Clear Calc 29.53, Est GFR (MDRD) Af Amer 45 L, Est GFR (MDRD) Non-Af 37 L, BUN/Creatinine Ratio 17.0, Glucose 102, Calcium 8.2 L 03/25/20 05:08: Magnesium 2.1 Current Medications Amiodarone HCl (Cordarone) 200 mg PO DAILY [facility] Last Admin: 03/24/20 10:37 Dose: 200 mg Documented by: Atorvastatin Calcium (Lipitor) 40 mg PO QHS [facility] Last Admin: 03/24/20 21:57 Dose: 40 mg Documented by: Balsalazide (Balsalazide Disodium) 750 mg PO BID [facility] Last Admin: 03/24/20 21:59 Dose: 750 mg Documented by: Calcium/Vitamin D (Os-Abiel 500mg + D) 1 tablet PO DAILY@1200 [facility] Last Admin: 03/24/20 10:39 Dose: 1 tablet Documented by: Clonidine 0.1 mg/ Clonidine 0. (2 mg) 0.3 mg PO TID [facility] Last Admin: 03/25/20 06:44 Dose: 0.3 mg Documented by: Diltiazem HCl (Cardizem Cd) 360 mg PO DAILY [facility] Last Admin: 03/24/20 10:38 Dose: 360 mg Documented by: Diphenhydramine HCl (Benadryl) 25 mg PO BID PRN PRN PRN Reason: alergic reaction Duloxetine HCl (Cymbalta) 60 mg PO DAILY [facility] Last Admin: 03/24/20 10:39 Dose: 60 mg Documented by: Gabapentin (Neurontin) 600 mg PO BID [facility] Last Admin: 03/24/20 21:57 Dose: 600 mg Documented by: Glimepiride (Amaryl) 2 mg PO DAILY@0800 [facility] Hydralazine HCl (Apresoline) 100 mg PO TID [facility] Last Admin: 03/25/20 06:44 Dose: 100 mg Documented by: Hydrochlorothiazide (Hctz) 25 mg PO DAILY [facility] Last Admin: 03/24/20 10:38 Dose: 25 mg Documented by: Hydromorphone HCl (Dilaudid Inj) 0.5 mg IV Q2H PRN PRN PRN Reason: Pain Score 6-10/10 Sodium Chloride () 1,000 mls @ 75 mls/hr IV .[id number] [facility] Last Admin: 03/25/20 06:40 Dose: 75 mls/hr Documented by: Potassium Chloride () 10 meq in 100 mls @ 100 mls/hr IV BOLUS Q1H [facility] Stop: 03/25/20 11:14 Ipratropium [place] (Atrovent Nasal [place] (G)) 1 spray NASAL TID PRN PRN PRN Reason: CONGESTION Isosorbide Mononitrate (Imdur) 60 mg PO DAILY [facility] Last Admin: 03/24/20 10:38 Dose: 60 mg Documented by: Ketorolac Tromethamine (Toradol (Bkc)) 15 mg IV Q6H PRN PRN PRN Reason: PAIN (1-10) Stop: 03/29/20 06:25 Last Admin: 03/25/20 04:44 Dose: 15 mg Documented by: Lisinopril (Zestril) 40 mg PO DAILY [facility] Last Admin: 03/24/20 10:38 Dose: 40 mg Documented by: Loratadine (Claritin) 10 mg PO QHS [facility] Last Admin: 03/24/20 21:57 Dose: 10 mg Documented by: Multivitamins/Minerals (Multivitamin With Minerals (Bkc)) 1 tablet PO DAILY@0800 [facility] Ondansetron HCl (Zofran) 4 mg IV Q6H PRN PRN PRN Reason: nausea/vomiting Last Admin: 03/25/20 04:48 Dose: 4 mg Documented by: Pantoprazole Sodium (Protonix) 20 mg PO DAILY [facility] Last Admin: 03/24/20 10:38 Dose: 20 mg Documented by: Sodium Chloride () 10 - 40 ml IV UD PRN PRN Reason: SALINE FLUSH Last Admin: 03/25/20 02:28 Dose: 10 ml Documented by: Medical Necessity - Tobacco Use Smoking Status: Former smoker Tobacco Use: Cigarettes Assessment/Plan All Active Problems (Last Reviewed 03/24/20 @ 07:[address] Surinder Larson MD) Ureterolithiasis (Acute) Renal colic on left side (Acute) Intractable pain (Acute) Asymptomatic hypertensive urgency (Acute) History of bilateral knee replacement (Resolved) History of back surgery (Resolved) Cervical vertebral fusion (Resolved) History of removal of cyst (Resolved) Bronchitis (Acute) Rhinovirus (Acute) Severe sepsis (Acute) Acute respiratory insufficiency (Acute) Chest tightness (Resolved) Hypertensive urgency (Resolved) Left wrist pain (Resolved) Syncopal episodes (Resolved) Ureteral calculus, right (Resolved) Plan for surgery today likely discharge after surgery.
[2020-03-25] MEDS: Cefazolin 2 GM in 0.9% Normal Saline 100 ML IV (10:32)
--- NOTE | 2020-03-25 10:38 | DCINST_ITS ---
Discharge Diet: Light diet - advance as tolerated Discharge Activity: Return to Normal Activity, May not drive while taking narcotic pain medications., May Shower Call your doctor if your incision/area has: Continuous Slow Oozing, Sudden Increased Bleeding, Increased Pain/ Swelling, Increased Redness, Foul Smelling Discharge, Swelling at the incision site Call your doctor if you observe: Fever of 101 or Higher Suture Line Care: Avoid Pulling/Pushing, Avoid Pinching/Bending Allergies/Adverse Reactions: Allergies aspirin Allergy (Severe, Verified 03/24/20 02:41) Mouth swelling donepezil [From Aricept] Adverse Reaction (Severe, Verified 03/24/20 02:41) Swelling morphine Adverse Reaction (Severe, Verified 03/24/20 02:41) UNABLE TO URINATE Medications to take at Discharge Infliximab-DYYB [Inflectra] 100 mg IV .COMPLEX 02/18/17 Esomeprazole Magnesium [Nexium 24Hr] 20 mg PO DAILY 04/15/17 Loratadine [Claritin] 10 mg PO QHS 04/15/17 Glimepiride [Amaryl] 2 mg PO DAILY 01/22/18 Balsalazide Disodium 750 mg PO BID 09/17/18 Multivit-Min/FA/Lycopen/Lutein [Centrum Silver Men Tablet] 1 ea PO DAILY 09/17/18 calcium carbonate-vitamin D3 600 mg (1,500 mg)-800 unit tablet 1 tab PO DAILY 06/02/19 duloxetine 60 mg capsule,delayed release 60 mg PO DAILY 06/02/19 gabapentin 600 mg tablet 600 mg PO BID tab 06/02/19 metformin 1,000 mg tablet 1,000 mg PO BID tab 10/06/19 clonidine HCl 0.3 mg tablet 0.3 mg PO TID #90 tab 12/24/19 Ipratropium [place] 15 ml NS PRN PRN 01/11/20 Amiodarone HCl 200 mg PO DAILY 03/24/20 Apixaban [Eliquis] 5 mg PO BID 03/24/20 Diltiazem HCl [Tiazac] 360 mg PO DAILY 03/24/20 DiphenhydrAMINE [Benadryl] 25 mg PO BID PRN PRN 03/24/20 Hydralazine HCl 100 mg PO TID 03/24/20 Hydrochlorothiazide [Hctz] 25 mg PO DAILY 03/24/20 Isosorbide Mononitrate [Isosorbide Mononitrate ER] 60 mg PO DAILY 03/24/20 Lisinopril 40 mg PO DAILY 03/24/20 Rosuvastatin Calcium 20 mg PO DAILY 03/24/20 Primary Care Physician: Jayme Yang MD [Primary Care Provider] - Test Results: Test results from this visit will be discussed in further detail at your follow- up appointment, if applicable. Please Follow Up With: Surinder Lasron MD When: please call to make an appointment.
--- NOTE | 2020-03-25 11:33 | OP.PCM_ITS ---
Problem List (1) Kidney stones Status: Chronic Report of Operation Date of Procedure: 03/25/20 Pre-Operative Diagnosis: Left ureteral calculi and renal calculi, left ureteral stricture Post-Operative Diagnosis: Same Surgery/Procedure Performed:: Balloon dilation of the left ureteral stricture and distal ureter, left retrograde pyelogram interpretation fluoroscopic images, left ureteroscopy laser lithotripsy of the stone in the ureter and stone in the kidney, and left stent placement. Description of Surgical Findings:: 74-year-old male was taken back to the operating room at the smooth induction of general anesthesia he was placed in dorsolithotomy position went into the bladder with a 21 [place] rigid cystourethroscope the entire length the urethra was normal the sphincter was intact prostate had some mild obstruction, inside the bladder the left and right ureteral orifice were clear and patent I then identified the left ureteral orifice advanced a wire up try to go over the wire ureteroscope but there was a stricture in the distal ureter so then I used the balloon dilator and dilated the distal ureter. I then was able to go up the ureter with a flexible ureteroscope push the stone up into the kidney there was a stone in the upper pole the kidney, performed laser lithotripsy and the stone in the upper pole of the kidney and then worked my way down the ureter and enco untered another stone and then lasered the stone little tiny pieces once both stones were lasered with a little tiny pieces performed a retrograde pyelogram see contrast go up in the kidney contrast of the kidney nicely no filling defects. All calyces were full I inspected the upper pole midpole lower pole the kidney no other stone fragments are seen after complete lasering the stone and tiny little pieces I then left the wire in place and backloaded off the wire over the wire backloaded a cystoscope and then advanced a stent a 6 Palestinian by 26 cm stent in the good position in the left kidney. Left the string on the stent but cut it short to prevent early extraction. Drained the bladder patient anesthetic reversed plan to see him back next week for cystoscopy stent removal. Type of Anesthesia:: General Drains: stent left side - Admit VTE Documentation VTE Present on Admission: No VTE Mechan Device Prophylaxis: SCD's
--- NOTE | 2020-03-25 11:36 | PCM.DC.SUM ---
Discharge Date and Diagnosis - Problem List Patient Problems: Active and Suspected Problems (Last Reviewed 03/24/20 @ 07:[address] Surinder Larson MD) Ureterolithiasis (Acute) Renal colic on left side (Acute) Intractable pain (Acute) Date of Admission: 03/23/20 Date of Discharge: 03/25/20 - Primary Discharge Diagnosis Acute Problems: Active Problems (Last Reviewed 03/24/20 @ 07:[address] Surinder Larson MD) Ureterolithiasis (Acute) Renal colic on left side (Acute) Intractable pain (Acute) - Secondary Discharge Diagnosis Chronic Problems: Chronic Problems (Last Reviewed 03/24/20 @ 07:[address] Surinder Larson MD) Kidney stones (Chronic) Dementia (Chronic) Essential hypertension (Chronic) Pulmonary hypertension (Chronic) RVSP 40 mmHg SUPA (obstructive sleep apnea) (Chronic) CPAP 15 cm of water Diverticula of colon (Chronic) Colitis (Chronic) Atrial fibrillation with RVR (Chronic) DM2 (diabetes mellitus, type 2) (Chronic) Hyperlipidemia (Chronic) Inflammatory bowel disease (Chronic) Benign essential HTN (Chronic) Rheumatoid aortitis (Chronic) Hospital Course and Treatment Imaging Results: 03/25/20 09:50 O.R. Fluoro for C-Arm [RAD] Urgent Operations: None, - - Left ureteroscopy and laser and stent. Procedures: None Summary of Care Provided: The patient is a 74 year old male admitted for obstructing stone hydronephrosis he underwent admission to the hospital pain control and then we taken the surgery to laser the stone and place a stent to be discharged home today. Patient Problems: Active and Suspected Problems (Last Reviewed 03/24/20 @ 07:[address] Surinder Larson MD) Ureterolithiasis (Acute) Renal colic on left side (Acute) Intractable pain (Acute) - Physical Exam Vitals/I&O's: Vital Signs Temp Pulse Resp BP Pulse Ox 98.0 F 55 L 18 118/54 L 94 03/25/20 08:04 03/25/20 08:04 03/25/20 08:04 03/25/20 08:04 03/25/20 08:04 Oxygen Flow Rate (L/min) 2 Oxygen Delivery Method Nasal Cannula Weight: 86.9 kg Body Mass Index (BMI) 31.8 Finger Stick Blood Glucose 151 Intake and Output for Last 24 Hours 03/23/20 03/24/20 03/25/20 23:59 23:59 23:59 Intake Total 2419.17 / 2669.17 1151.25 / 1151.25 Output Total 1100 / 1725 1275 / 1275 Balance 1319.17 / 944.17 -123.75 / -123.75 General: Alert, Oriented x3, Cooperative HEENT: Atraumatic, PERRLA, EOMI, Normocephalic Neck: Supple, No JVD, Negative Carotid Bruits Lungs: Clear to auscultation, Normal air movement Cardiovascular: Regular rate, No murmurs Abdomen: Bowel Sounds Present, Soft, Non Tender Extremities: No edema, Capillary Refill Less than 3 Seconds Skin: No rashes, No breakdown Musculoskeletal: No Tenderness to Palpation of Joints or Extremities Neurological: Cranial nerves II-XII grossly intact Psych/Mental Status: Normal Affect, Appropriate Laboratory Results 03/25/20 05:08: WBC 9.1, RBC 3.29 L, Hgb 9.6 L, Hct 29.9 L, MCV 90.9, MCH 29.2, MCHC 32.1, RDW Std Deviation 51.2 H, RDW Coeff of Azeem 15.5 H, Plt Count 159, MPV 11.7, Immature Gran % (Auto) 0.300, Neut % (Auto) 70.6 H, Lymph % (Auto) 16.3 L, Gove % (Auto) 11.0 H, Eos % (Auto) 1.7, Baso % (Auto) 0.1, Absolute Neuts (auto) 6.4, Absolute Lymphs (auto) 1.48, Nucleated RBC % 0 03/25/20 05:08: Sodium 139, Potassium 3.2 L, Chloride 105, Carbon Dioxide 28.0, Anion Gap 6, BUN 32 H, Creatinine 1.88 H, Estim Creat Clear Calc 29.53, Est GFR (MDRD) Af Amer 45 L, Est GFR (MDRD) Non-Af 37 L, BUN/Creatinine Ratio 17.0, Glucose 102, Calcium 8.2 L 03/25/20 05:08: Magnesium 2.1 Current Medications Amiodarone HCl (Cordarone) 200 mg PO DAILY JOHANNA Last Admin: 03/24/20 10:37 Dose: 200 mg Documented by: Atorvastatin Calcium (Lipitor) 40 mg PO QHS [facility] Last Admin: 03/24/20 21:57 Dose: 40 mg Documented by: Balsalazide (Balsalazide Disodium) 750 mg PO BID [facility] Last Admin: 03/24/20 21:59 Dose: 750 mg Documented by: Calcium/Vitamin D (Os-Abiel 500mg + D) 1 tablet PO DAILY@1200 [facility] Last Admin: 03/24/20 10:39 Dose: 1 tablet Documented by: Clonidine 0.1 mg/ Clonidine 0. (2 mg) 0.3 mg PO TID [facility] Last Admin: 03/25/20 06:44 Dose: 0.3 mg Documented by: Diltiazem HCl (Cardizem Cd) 360 mg PO DAILY [facility] Last Admin: 03/24/20 10:38 Dose: 360 mg Documented by: Diphenhydramine HCl (Benadryl) 25 mg PO BID PRN PRN PRN Reason: alergic reaction Duloxetine HCl (Cymbalta) 60 mg PO DAILY [facility] Last Admin: 03/24/20 10:39 Dose: 60 mg Documented by: Gabapentin (Neurontin) 600 mg PO BID [facility] Last Admin: 03/24/20 21:57 Dose: 600 mg Documented by: Glimepiride (Amaryl) 2 mg PO DAILY@0800 [facility] Hydralazine HCl (Apresoline) 100 mg PO TID [facility] Last Admin: 03/25/20 06:44 Dose: 100 mg Documented by: Hydrochlorothiazide (Hctz) 25 mg PO DAILY [facility] Last Admin: 03/24/20 10:38 Dose: 25 mg Documented by: Hydromorphone HCl (Dilaudid Inj) 0.5 mg IV Q2H PRN PRN PRN Reason: Pain Score 6-10/10 Sodium Chloride () 1,000 mls @ 75 mls/hr IV .[id number] [facility] Last Admin: 03/25/20 06:40 Dose: 75 mls/hr Documented by: Ipratropium [place] (Atrovent Nasal [place] (G)) 1 spray NASAL TID PRN PRN PRN Reason: CONGESTION Isosorbide Mononitrate (Imdur) 60 mg PO DAILY [facility] Last Admin: 03/24/20 10:38 Dose: 60 mg Documented by: Ketorolac Tromethamine (Toradol (Bkc)) 15 mg IV Q6H PRN PRN PRN Reason: PAIN (1-10) Stop: 03/29/20 06:25 Last Admin: 03/25/20 04:44 Dose: 15 mg Documented by: Lisinopril (Zestril) 40 mg PO DAILY [facility] Last Admin: 03/24/20 10:38 Dose: 40 mg Documented by: Loratadine (Claritin) 10 mg PO QHS [facility] Last Admin: 03/24/20 21:57 Dose: 10 mg Documented by: Multivitamins/Minerals (Multivitamin With Minerals (Bkc)) 1 tablet PO DAILY@0800 [facility] Ondansetron HCl (Zofran) 4 mg IV Q6H PRN PRN PRN Reason: nausea/vomiting Last Admin: 03/25/20 04:48 Dose: 4 mg Documented by: Pantoprazole Sodium (Protonix) 20 mg PO DAILY [facility] Last Admin: 03/24/20 10:38 Dose: 20 mg Documented by: Sodium Chloride () 10 - 40 ml IV UD PRN PRN Reason: SALINE FLUSH Last Admin: 03/25/20 02:28 Dose: 10 ml Documented by: Discharge Diet: Light diet - advance as tolerated Discharge Activity: Return to Normal Activity, May not drive while taking narcotic pain medications., May Shower Call your doctor if your incision/area has: Continuous Slow Oozing, Sudden Increased Bleeding, Increased Pain/ Swelling, Increased Redness, Foul Smelling Discharge, Swelling at the incision site Call your doctor if you observe: Fever of 101 or Higher Suture Line Care: Avoid Pulling/Pushing, Avoid Pinching/Bending Home Medications: Medications to take at Discharge Infliximab-DYYB [Inflectra] 100 mg IV .COMPLEX 02/18/17 Esomeprazole Magnesium [Nexium 24Hr] 20 mg PO DAILY 04/15/17 Loratadine [Claritin] 10 mg PO QHS 04/15/17 Glimepiride [Amaryl] 2 mg PO DAILY 01/22/18 Balsalazide Disodium 750 mg PO BID 09/17/18 Multivit-Min/FA/Lycopen/Lutein [Centrum Silver Men Tablet] 1 ea PO DAILY 09/17/18 calcium carbonate-vitamin D3 600 mg (1,500 mg)-800 unit tablet 1 tab PO DAILY 06/02/19 duloxetine 60 mg capsule,delayed release 60 mg PO DAILY 06/02/19 gabapentin 600 mg tablet 600 mg PO BID tab 06/02/19 metformin 1,000 mg tablet 1,000 mg PO BID tab 10/06/19 clonidine HCl 0.3 mg tablet 0.3 mg PO TID #90 tab 12/24/19 Ipratropium [place] 15 ml NS PRN PRN 01/11/20 Amiodarone HCl 200 mg PO DAILY 03/24/20 Apixaban [Eliquis] 5 mg PO BID 03/24/20 Diltiazem HCl [Tiazac] 360 mg PO DAILY 03/24/20 DiphenhydrAMINE [Benadryl] 25 mg PO BID PRN PRN 03/24/20 Hydralazine HCl 100 mg PO TID 03/24/20 Hydrochlorothiazide [Hctz] 25 mg PO DAILY 03/24/20 Isosorbide Mononitrate [Isosorbide Mononitrate ER] 60 mg PO DAILY 03/24/20 Lisinopril 40 mg PO DAILY 03/24/20 Rosuvastatin Calcium 20 mg PO DAILY 03/24/20 Ciprofloxacin [Cipro] 500 mg PO BID #10 tab 03/25/20 Ibuprofen 600 mg PO Q6H PRN PRN 5 Days #20 tab 03/25/20 Following Prescrptions Were Given to Patient: Ciprofloxacin [Cipro] 500 mg PO BID #10 tab Transmission Status: Received by [facility] Ibuprofen 600 mg PO Q6H PRN PRN 5 Days #20 tab PRN Reason: Pain Score 1-10/10 Transmission Status: Received by [facility] Primary Care Physician: Jayme Yang MD [Primary Care Provider] - Please Follow Up With: Surinder Larson MD When: please call to make an appointment. Medical Necessity - Tobacco Use Smoking Status: Former smoker Tobacco Use: Cigarettes Meaningful Use Info Meaningful Use Diagnoses (Choose all that apply): None applicable
[2020-03-25] MEDS: Ipratropium/Albuterol Sulfate 3 ML AMPUL.NEB INHALATION (12:20)
--- NOTE | 2020-03-25 12:54 | SUR.PHASEI ---
ON ARRIVAL TO PACU, CONSTANT MOIST COUGH, COURSE RHONCHI UPPER AIRWAY AND CLEAR, DIMINISHED BASES. RR 24-26, SPO2 86-88% ON 6 L/MIN NC, PLACED ON SIMPLE MASK THEN TRANSITIONED TO 100% NRB WHEN FAILED TO INCREASE SPO2. ORAL SUCTIONED FOR SMALL AMT THICK CLEAR/WHITE SECREATIONS. SBP 200'S, TENSE. DR DE LEON NOTIFIED, STAT DUONEB ORDERED. NOW CONTINUES ON 100% NRB WITH SPO2 94-96%, RR 18, NO FURTHER COUGHING OR DISTRESS. FAINT EXPIRATORY WHEEZES ON RIGHT, SCATTERED COURSE CRACKLES TO LLL. DR DE LEON UPDATED, ORDERED CHEST XRAY.
[2020-03-25 12:56] LABS: Bedside Glucose 120 mg/dL (70-110)
--- NOTE | 2020-03-25 12:58 | RAD_ITS ---
STUDY: X-RAY CHEST REASON FOR EXAM: Male, 74 years old. hypoxia with cough post surgery TECHNIQUE: Single AP portable view of the chest. COMPARISON: 02/21/2020 FINDINGS: EKG leads overlie the chest Lungs are expanded with superimposed interstitial edema and evidence of chronic bronchitis. No organized right, there is left basilar atelectasis. There is no demonstrated pleural abnormality. Normal size heart. Normal mediastinum and corina. Normal visualized pulmonary arteries. Normal visualized aortic arch and descending thoracic aorta. There are diffuse degenerative changes of the visualized thoracic spine. There is degenerative osteoarthritis of the bilateral shoulders. There is no demonstrated abnormality of the visualized soft tissue structures of the upper abdomen. RAD/Chest 1 View (Portable) IMPRESSION: Interstitial edema has developed since the previous study. Follow-up recommended to assure resolution Evidence of chronic bronchitis but no organized infiltrate or effusion. Left basilar atelectasis noted Degenerative bony changes, surgical hardware in the lower cervical spine free of complication Electronically Signed: Trever Madrigal MD at 13:12 EDT , Service support ,
[2020-03-25] MEDS: dilTIAZem CD 180 MG Capsule 360 MG PO (16:05)
[2020-03-25] MEDS: Gabapentin 600 MG Tablet PO ×2 (16:05→22:11)
[2020-03-25] MEDS: BALSALAZIDE DISODIUM 750 MG CAPSULE PO ×2 (16:05→22:09)
[2020-03-25] MEDS: Pantoprazole Sodium 20 MG Tablet PO (16:09)
[2020-03-25] MEDS: Multivitamins,Ther W-Minerals Tablet 1 TABLET PO (16:09)
[2020-03-25] MEDS: Isosorbide Mononitrate 60 MG Tablet PO (16:10)
[2020-03-25] MEDS: hydroCHLOROthiazide 25 MG Tablet PO (16:10)
[2020-03-25] MEDS: Glimepiride 2 MG Tablet PO (16:10)
[2020-03-25] MEDS: Lisinopril 40 MG Tablet PO (16:10)
[2020-03-25] MEDS: DULoxetine Hcl 60 MG Capsule PO (16:11)
[2020-03-25] MEDS: Calcium Carb/Vitamin D 1 TABLET Tablet PO (16:11)
[2020-03-25] MEDS: Amiodarone 200 MG Tablet PO (16:12)
--- NOTE | 2020-03-25 17:24 | CON.PCM_ITS ---
Reason for Consult Date of Consultation: 03/25/20 Reason for Consultation: consult requested by Dr. Larson for hypoxia. History of Present Illness: The patient is a 74 year old M presents with flank pain. Patient was found to have a proximal ureteral stone. Patient was admitted to urology service and on the , patient underwent balloon dilation of left ureteral stricture, left retrograde pyelogram, left ureteroscopy and laser lithotripsy of the stone and left stent placement. Afterwards, patient was noted to be hypoxic with pulse ox in the 80s. The hospitalist service was consulted for these hypoxic episodes. Patient did have a chest x-ray that showed pulmonary edema. Patient denies any history of CHF. [] Past Medical History Past Medical History (Chronic Problems): Chronic Problems (Last Reviewed 03/25/20 @ 17:[address] Rico Tilley DO) Kidney stones (Chronic) Dementia (Chronic) Essential hypertension (Chronic) Pulmonary hypertension (Chronic) RVSP 40 mmHg SUPA (obstructive sleep apnea) (Chronic) CPAP 15 cm of water Diverticula of colon (Chronic) Colitis (Chronic) Atrial fibrillation with RVR (Chronic) DM2 (diabetes mellitus, type 2) (Chronic) Hyperlipidemia (Chronic) Inflammatory bowel disease (Chronic) Benign essential HTN (Chronic) Rheumatoid aortitis (Chronic) Medical History: Medical History (Last Reviewed 03/25/20 @ 17:[address] Rico Tilley DO) Essential hypertension (Chronic) I10 Diverticula of colon (Chronic) K57.30 Colitis (Chronic) K52.9 Bronchitis (Acute) J40 Atrial fibrillation with RVR (Chronic) I48.91 Rhinovirus (Acute) B34.8 Severe sepsis (Acute) A41.9, R65.20 Acute respiratory insufficiency (Acute) R06.89 DM2 (diabetes mellitus, type 2) (Chronic) E11.9 Hyperlipidemia (Chronic) E78.5 Inflammatory bowel disease (Chronic) K52.9 Benign essential HTN (Chronic) I10 Rheumatoid aortitis (Chronic) I01.1 Hypertensive urgency (Resolved) I16.0 Allergies aspirin Allergy (Severe, Verified 03/24/20 02:41) Mouth swelling donepezil [From Aricept] Adverse Reaction (Severe, Verified 03/24/20 02:41) Swelling morphine Adverse Reaction (Severe, Verified 03/24/20 02:41) UNABLE TO URINATE Home Medications: Ambulatory Orders Medication Instructions Recorded Infliximab-DYYB [Inflectra] 100 mg IV .COMPLEX 02/18/17 Esomeprazole Magnesium [Nexium 20 mg PO DAILY 04/15/17 24Hr] Loratadine [Claritin] 10 mg PO QHS 04/15/17 Glimepiride [Amaryl] 2 mg PO DAILY 01/22/18 Balsalazide Disodium 750 mg PO BID 09/17/18 Multivit-Min/FA/Lycopen/Lutein 1 ea PO DAILY 09/17/18 [Centrum Silver Men Tablet] calcium carbonate-vitamin D3 600 1 tab PO DAILY 06/02/19 mg (1,500 mg)-800 unit tablet duloxetine 60 mg capsule,delayed 60 mg PO DAILY 06/02/19 release gabapentin 600 mg tablet 600 mg PO BID tab 06/02/19 metformin 1,000 mg tablet 1,000 mg PO BID tab 10/06/19 clonidine HCl 0.3 mg tablet 0.3 mg PO TID #90 tab 12/24/19 Ipratropium [place] 15 ml NS PRN PRN 01/11/20 Amiodarone HCl 200 mg PO DAILY 03/24/20 Apixaban [Eliquis] 5 mg PO BID 03/24/20 Diltiazem HCl [Tiazac] 360 mg PO DAILY 03/24/20 DiphenhydrAMINE [Benadryl] 25 mg PO BID PRN PRN 03/24/20 Hydralazine HCl 100 mg PO TID 03/24/20 Hydrochlorothiazide [Hctz] 25 mg PO DAILY 03/24/20 Isosorbide Mononitrate [Isosorbide 60 mg PO DAILY 03/24/20 Mononitrate ER] Lisinopril 40 mg PO DAILY 03/24/20 Rosuvastatin Calcium 20 mg PO DAILY 03/24/20 Ciprofloxacin [Cipro] 500 mg PO BID #10 tab 03/25/20 Ibuprofen 600 mg PO Q6H PRN PRN 5 Days #20 03/25/20 tab Surgical History: Surgical History (Last Reviewed 03/25/20 @ 17:[address] Rico Tilley, DO) History of bilateral knee replacement (Resolved) Z96.653 History of back surgery (Resolved) Z98.890 Cervical vertebral fusion (Resolved) M43.22 History of removal of cyst (Resolved) Z98.890 Surgical History: no surgical history, noncontributory, - - Fusion of the cervical spine, lumbar spine surgery, bilateral knee replacements, partial colon resection due to diverticulitis Psychiatric History: No pertinent psych hx Smoking Status: Former smoker Tobacco Use: Cigarettes - *Family History Maternal Family History: Family History (Last Reviewed 03/25/20 @ 17:[address] Rico Tilley DO) Mother Heart disease Diabetes Father Heart disease Lung disease Brother Heart disease Lung disease Cancer Sister Diabetes Cancer History Items: Heart Disease Paternal Family History: Family History (Last Reviewed 03/25/20 @ 17:[address] Rico Tilley DO) Mother Heart disease Diabetes Father Heart disease Lung disease Brother Heart disease Lung disease Cancer Sister Diabetes Cancer History Items: COPD, Heart Disease Review of Systems Constitutional: Denies: Anorexia, Fever, Night Sweats Eyes: Denies: Blurred vision, Double vision HEENT: Reports: Sore Throat - After surgery was not present before., - - No anosmia, no loss of taste.. Denies: Head Aches, Sinus Congestion, Sinus Drainage Cardiovascular: Denies: Chest Pain, Palpitations Respiratory: Reports: Cough - Nonproductive, Shortness of Breath Gastrointestinal: Denies: Abdominal Pain, Nausea, Vomiting Genitourinary: Denies: Dysuria Musculoskeletal: Denies: Joint Pain, Joint Tenderness Skin: Denies: Rash, Wounds Psychiatric: Denies: Anxiety, Depression Hematologic/ Lymphatic: Denies: Easy Bruising, Easy Bleeding, Hx of blood clot Patient Problems: Active and Suspected Problems (Last Reviewed 03/25/20 @ 17:[address] Rico Tilley DO) Ureterolithiasis (Acute) Renal colic on left side (Acute) Intractable pain (Acute) - Physical Exam Vitals/I&O's: Vital Signs Temp Pulse Resp BP Pulse Ox 36.7 C 59 L 18 151/67 H 94 03/25/20 15:54 03/25/20 16:11 03/25/20 15:54 03/25/20 15:54 03/25/20 15:54 Oxygen Flow Rate (L/min) 2 Oxygen Delivery Method Nasal Cannula Weight: 86.9 kg Body Mass Index (BMI) 31.8 Finger Stick Blood Glucose 151 Intake and Output for Last 24 Hours 0603/24/20 03/25/20 23:59 23:59 23:59 Intake Total 2419.17 / 2669.17 2713.75 / 2713.75 Output Total 1100 / 1725 1925 / 1925 Balance 1319.17 / 944.17 788.75 / 788.75 General: Alert, Cooperative, No apparent distress HEENT: Atraumatic, Normocephalic Oral: Moist Mucosa, No Gingival or Mucosal Lesions/ Ulcerations Neck: No Nodes, Thyroid Normal Size and Texture Lungs: Normal air movement, - - Scattered crackles Cardiovascular: Regular rate, No murmurs Abdomen: Bowel Sounds Present, Soft, Non Tender Extremities: No edema, No Calf Tenderness Skin: No rashes, No breakdown Musculoskeletal: No Tenderness to Palpation of Joints or Extremities, No Muscle Wasting Psych/Mental Status: Normal Affect, Appropriate Laboratory Results 03/25/20 05:08: WBC 9.1, RBC 3.29 L, Hgb 9.6 L, Hct 29.9 L, MCV 90.9, MCH 29.2, MCHC 32.1, RDW Std Deviation 51.2 H, RDW Coeff of Azeem 15.5 H, Plt Count 159, MPV 11.7, Immature Gran % (Auto) 0.300, Neut % (Auto) 70.6 H, Lymph % (Auto) 16.3 L , Keith % (Auto) 11.0 H, Eos % (Auto) 1.7, Baso % (Auto) 0.1, Absolute Neuts (auto) 6.4, Absolute Lymphs (auto) 1.48, Nucleated RBC % 0 03/25/20 05:08: Sodium 139, Potassium 3.2 L, Chloride 105, Carbon Dioxide 28.0, Anion Gap 6, BUN 32 H, Creatinine 1.88 H, Estim Creat Clear Calc 29.53, Est GFR (MDRD) Af Amer 45 L, Est GFR (MDRD) Non-Af 37 L, BUN/Creatinine Ratio 17.0, Glucose 102, Calcium 8.2 L 03/25/20 05:08: Magnesium 2.1 03/25/20 12:46: POC Glucose 120 H Chest x-ray reviewed and showed pulmonary vascular congestion. No infiltrate. Current Medications Amiodarone HCl (Cordarone) 200 mg PO DAILY JOHAN[facility] Last Admin: 03/25/20 16:12 Dose: 200 mg Documented by: Atorvastatin Calcium (Lipitor) 40 mg PO QHS [facility] Last Admin: 03/24/20 21:57 Dose: 40 mg Documented by: Balsalazide (Balsalazide Disodium) 750 mg PO BID [facility] Last Admin: 03/25/20 16:05 Dose: 750 mg Documented by: Calcium/Vitamin D (Os-Abiel 500mg + D) 1 tablet PO DAILY@1200 [facility] Last Admin: 03/25/20 16:11 Dose: 1 tablet Documented by: Clonidine 0.1 mg/ Clonidine 0. (2 mg) 0.3 mg PO TID [facility] Last Admin: 03/25/20 16:04 Dose: 0.3 mg Documented by: Diltiazem HCl (Cardizem Cd) 360 mg PO DAILY [facility] Last Admin: 03/25/20 16:05 Dose: 360 mg Documented by: Diphenhydramine HCl (Benadryl) 25 mg PO BID PRN PRN PRN Reason: alergic reaction Duloxetine HCl (Cymbalta) 60 mg PO DAILY [facility] Last Admin: 03/25/20 16:11 Dose: 60 mg Documented by: Furosemide (Lasix) 40 mg IV BID@1000,1800 [facility] Gabapentin (Neurontin) 600 mg PO BID [facility] Last Admin: 03/25/20 16:05 Dose: 600 mg Documented by: Glimepiride (Amaryl) 2 mg PO DAILY@0800 [facility] Last Admin: 03/25/20 16:10 Dose: 2 mg Documented by: Hydralazine HCl (Apresoline) 100 mg PO TID [facility] Last Admin: 03/25/20 16:11 Dose: 100 mg Documented by: Hydrochlorothiazide (Hctz) 25 mg PO DAILY [facility] Last Admin: 03/25/20 16:10 Dose: 25 mg Documented by: Hydromorphone HCl (Dilaudid Inj) 0.5 mg IV Q2H PRN PRN PRN Reason: Pain Score 6-10/10 Ipratropium [place] (Atrovent Nasal [place] (G)) 1 spray NASAL TID PRN PRN PRN Reason: CONGESTION Isosorbide Mononitrate (Imdur) 60 mg PO DAILY [facility] Last Admin: 03/25/20 16:10 Dose: 60 mg Documented by: Ketorolac Tromethamine (Toradol (Bkc)) 15 mg IV Q6H PRN PRN PRN Reason: PAIN (1-10) Stop: 03/29/20 06:25 Last Admin: 03/25/20 04:44 Dose: 15 mg Documented by: Lisinopril (Zestril) 40 mg PO DAILY [facility] Last Admin: 03/25/20 16:10 Dose: 40 mg Documented by: Loratadine (Claritin) 10 mg PO QHS [facility] Last Admin: 03/24/20 21:57 Dose: 10 mg Documented by: Multivitamins/Minerals (Multivitamin With Minerals (Bkc)) 1 tablet PO DAILY@0800 [facility] Last Admin: 03/25/20 16:09 Dose: 1 tablet Documented by: Ondansetron HCl (Zofran) 4 mg IV Q6H PRN PRN PRN Reason: nausea/vomiting Last Admin: 03/25/20 04:48 Dose: 4 mg Documented by: Pantoprazole Sodium (Protonix) 20 mg PO DAILY [facility] Last Admin: 03/25/20 16:09 Dose: 20 mg Documented by: Potassium Chloride (K-Dur) 40 meq PO X1 ONE Stop: 03/25/20 17:24 Sodium Chloride () 10 - 40 ml IV UD PRN PRN Reason: SALINE FLUSH Last Admin: 03/25/20 02:28 Dose: 10 ml Documented by: Assessment/Plan All Active Problems (Last Reviewed 03/25/20 @ 17:[address] Rico Tilley, DO) Ureterolithiasis (Acute) Renal colic on left side (Acute) Intractable pain (Acute) Asymptomatic hypertensive urgency (Acute) History of bilateral knee replacement (Resolved) History of back surgery (Resolved) Cervical vertebral fusion (Resolved) History of removal of cyst (Resolved) Bronchitis (Acute) Rhinovirus (Acute) Severe sepsis (Acute) Acute respiratory insufficiency (Acute) Chest tightness (Resolved) Hypertensive urgency (Resolved) Left wrist pain (Resolved) Syncopal episodes (Resolved) Ureteral calculus, right (Resolved) 1. Acute heart failure with preserved ejection fraction * Ejection fraction of 65% from echocardiogram on February 02, 2020. 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 * Patient is +2108 mL since admission. * Will initiate IV furosemide 40 mg twice daily, strict I's and O's fluid restrict 1500 cc/day * No need for additional cardiac work-up as patient has had it recently with an echocardiogram in January. 2. Hypokalemia: * Will replace as it is 3.2 * Magnesium normal at 2.1 * Will give 40 mEq orally today * Follow-up in the morning 3. Acute hypoxic respiratory insufficiency * Secondary to heart failure but compounded by underlying pulmonary hypertension and obstructive sleep apnea * Prior to discharge, check an amatory pulse ox to see if the patient would require oxygen * Patient has no COVID risk factors such as exposure nor do his symptoms correlate 4. Ureteral stones * Status post stent and laser lithotripsy * Management per urology 5. Obstructive sleep apnea * Complicates care but stable continue with his home CPAP 6. VTE prophylaxis with SCDs. 7. Disposition: Anticipate the patient, for the heart failure being hospitalized for the next 24 to 48 hours. Thank you for the consultation. The hospital service will continue to follow along during this patient's hospitalization. Discussed with the patient's at bedside. Inpatient E&M: 41330 Init Hosp L2
[2020-03-25] MEDS: Furosemide 40 MG/4 ML Vial IV (17:48)
[2020-03-25] MEDS: Loratadine 10 MG Tablet PO (22:09)
[2020-03-25] MEDS: Atorvastatin Calcium 40 MG Tablet PO (22:12)
--- NOTE | 2020-03-25 23:06 | CPS ---
Pt. requiring O2 with home CPAP machine to maintain SpO2 >89%. Tried on 3L O2 first, but had to be transitioned to 5L O2 with CPAP. Pt. states that he usually does not need oxygen with CPAP machine at home. On nurses cont. pulse ox for tonight. DIRECTOR BUSINESS TRAVEL will monitor.
[2020-03-26] VITALS (14 sets, daily range): BP systolic 112–154; BP diastolic 54–79; PULSE 50–72; RESP 16–18; TEMP 36.6–37; O2SAT 95–97; BMI 31.9
[2020-03-26] MEDS: hydrALAZINE 50 MG Tablet 100 MG PO ×2 (05:52→22:09)
[2020-03-26] MEDS: Clonidine HCl 0.1 MG, Clonidine HCl 0.2 MG 0.3 MG PO ×2 (05:53→22:09)
[2020-03-26 07:53] LABS: Absolute Lymphocyte Count 1.81 X10^3/uL (0.83-4.51); Absolute Neutrophil Count 5.7 X10^3/uL (2.0-7.7); Basophil# 0.02 X10^3/uL; Basophil% 0.2 % (0-1); Eosinophil# 0.15 X10^3/uL; Eosinophils% 1.7 % (0-5); Hematocrit 27.3 % (40-54); Hemoglobin 8.6 g/dL (13.0-16.5); Lymphocyte # 1.81 X10^3/ul (4.0); Lymphocyte % 20.8 % (19-41); Mean Corp Hgb Conc 31.5 g/dL (32-36); Mean Corpuscular Hgb 29.2 pg (27.0-32.0); Mean Corpuscular Volume 92.5 fL (80-94); Mean Platelet Vol. 12.2 fl (6.2-12.0); Monocyte# 0.99 X10^3/uL; Monocyte% 11.4 % (0-10); NRBC Flagged by Analyzer 0 % (0-5); Neutrophil # 5.71 X10^3/uL (2.7-7.7); Neutrophil % 65.4 % (47-70); Platelet Count 151 K/mm3 (150-450); RBC Distribution Width CV 16.3 % (11.6-14.6); RBC Distribution Width SD 55.2 fl (35.1-43.9); Red Blood Count 2.95 M/mm3 (4.6-6.2); White Blood Count 8.7 K/mm3 (4.4-11.0)
[2020-03-26 08:05] LABS: Anion Gap 6 (5-15); BUN 37 mg/dL (7-18); Calcium,Total 7.9 mg/dL (8.5-10.1); Chloride 107 mmol/L (98-107); Creatinine, Serum 2.18 mg/dL (0.70-1.30); EST Glomerular Filtration Rate 31 mL/min (>60); Est Glom Filt Rate - Afr Amer 38 mL/min (>60); Estimated Creatinine Clearance 25.47 ml/min; Glucose 84 mg/dL (74-106); Magnesium 2.1 mg/dL (1.6-2.6); Potassium 3.5 mmol/L (3.5-5.1); Sodium Level 139 mmol/L (136-145)
[2020-03-26] MEDS: Glimepiride 2 MG Tablet PO (08:20)
[2020-03-26] MEDS: Multivitamins,Ther W-Minerals Tablet 1 TABLET PO (08:20)
--- NOTE | 2020-03-26 08:51 | PCM.PROGNOTE ---
Patient Problems: Active and Suspected Problems (Last Reviewed 03/25/20 @ 17:[address] Rico Tilley, DO) Ureterolithiasis (Acute) Renal colic on left side (Acute) Intractable pain (Acute) Subjective: 74-year-old male was admitted for kidney stone underwent ureteroscopy and laser. After the treatment of the stone was planned for discharge but he was found to have hypoxia difficulty breathing medical consult was obtained and peers to be congestive heart failure. He was given diuretic fluids were hep-locked this morning he still on oxygen I will hold his discharge until he is back to regular room air and cleared by the medical service. - Physical Exam Vitals/I&O's: Vital Signs Temp Pulse Resp BP Pulse Ox 97.8 F 51 L 16 138/70 H 95 03/26/20 08:07 03/26/20 08:36 03/26/20 08:07 03/26/20 08:07 03/26/20 08:07 Oxygen Flow Rate (L/min) 3 Oxygen Delivery Method Nasal Cannula Weight: 90.2 kg Body Mass Index (BMI) 31.8 Finger Stick Blood Glucose 151 Intake and Output for Last 24 Hours 03/24/20 03/25/20 03/26/20 23:59 23:59 23:59 Intake Total 2419.17 / 2669.17 3513.75 / 3713.75 600 / 600 Output Total 1100 / 1725 2275 / 2400 775 / 775 Balance 1319.17 / 944.17 1238.75 / 1313.75 -175 / -175 General: Alert, Oriented x3, Cooperative HEENT: Atraumatic, PERRLA, EOMI, Normocephalic Neck: Supple, No JVD, Negative Carotid Bruits Lungs: Clear to auscultation, Normal air movement Cardiovascular: Regular rate, No murmurs Abdomen: Bowel Sounds Present, Soft, Non Tender Extremities: No edema, Capillary Refill Less than 3 Seconds Skin: No rashes, No breakdown Musculoskeletal: No Tenderness to Palpation of Joints or Extremities Neurological: Cranial nerves II-XII grossly intact Psych/Mental Status: Normal Affect, Appropriate Laboratory Results 03/25/20 05:08: Magnesium 2.1 03/25/20 12:46: POC Glucose 120 H 03/26/20 07:02: WBC 8.7, RBC 2.95 L, Hgb 8.6 L, Hct 27.3 L, MCV 92.5, MCH 29.2, MCHC 31.5 L, RDW Std Deviation 55.2 H, RDW Coeff of Azeem 16.3 H, Plt Count 151, MPV 12.2 H, Immature Gran % (Auto) 0.500, Neut % (Auto) 65.4, Lymph % (Auto) 20.8, [place] % (Auto) 11.4 H, Eos % (Auto) 1.7, Baso % (Auto) 0.2, Absolute Neuts (auto) 5.7, Absolute Lymphs (auto) 1.81, Nucleated RBC % 0 03/26/20 07:02: Sodium 139, Potassium 3.5, Chloride 107, Carbon Dioxide 26.0, Anion Gap 6, BUN 37 H, Creatinine 2.18 H, Estim Creat Clear Calc 25.47, Est GFR (MDRD) Af Amer 38 L, Est GFR (MDRD) Non-Af 31 L, BUN/Creatinine Ratio 17.0, Glucose 84, Calcium 7.9 L, Magnesium 2.1 Current Medications Amiodarone HCl (Cordarone) 200 mg PO DAILY [facility] Last Admin: 03/25/20 16:12 Dose: 200 mg Documented by: Atorvastatin Calcium (Lipitor) 40 mg PO QHS [facility] Last Admin: 03/25/20 22:12 Dose: 40 mg Documented by: Balsalazide (Balsalazide Disodium) 750 mg PO BID [facility] Last Admin: 03/25/20 22:09 Dose: 750 mg Documented by: Calcium/Vitamin D (Os-Abiel 500mg + D) 1 tablet PO DAILY@1200 [facility] Last Admin: 03/25/20 16:11 Dose: 1 tablet Documented by: Clonidine 0.1 mg/ Clonidine 0. (2 mg) 0.3 mg PO TID [facility] Last Admin: 03/26/20 05:53 Dose: 0.3 mg Documented by: Diltiazem HCl (Cardizem Cd) 360 mg PO DAILY [facility] Last Admin: 03/25/20 16:05 Dose: 360 mg Documented by: Diphenhydramine HCl (Benadryl) 25 mg PO BID PRN PRN PRN Reason: alergic reaction Duloxetine HCl (Cymbalta) 60 mg PO DAILY [facility] Last Admin: 03/25/20 16:11 Dose: 60 mg Documented by: Furosemide (Lasix) 40 mg IV BID@1000,1800 [facility] Last Admin: 03/25/20 17:48 Dose: 40 mg Documented by: Gabapentin (Neurontin) 600 mg PO BID [facility] Last Admin: 03/25/20 22:11 Dose: 600 mg Documented by: Glimepiride (Amaryl) 2 mg PO DAILY@0800 [facility] Last Admin: 03/26/20 08:20 Dose: 2 mg Documented by: Hydralazine HCl (Apresoline) 100 mg PO TID [facility] Last Admin: 03/26/20 05:52 Dose: 100 mg Documented by: Hydrochlorothiazide (Hctz) 25 mg PO DAILY [facility] Last Admin: 03/25/20 16:10 Dose: 25 mg Documented by: Hydromorphone HCl (Dilaudid Inj) 0.5 mg IV Q2H PRN PRN PRN Reason: Pain Score 6-10/10 Ipratropium [place] (Atrovent Nasal [place] (G)) 1 spray NASAL TID PRN PRN PRN Reason: CONGESTION Isosorbide Mononitrate (Imdur) 60 mg PO DAILY [facility] Last Admin: 03/25/20 16:10 Dose: 60 mg Documented by: Ketorolac Tromethamine (Toradol (Bkc)) 15 mg IV Q6H PRN PRN PRN Reason: PAIN (1-10) Stop: 03/29/20 06:25 Last Admin: 03/25/20 04:44 Dose: 15 mg Documented by: Lisinopril (Zestril) 40 mg PO DAILY [facility] Last Admin: 03/25/20 16:10 Dose: 40 mg Documented by: Loratadine (Claritin) 10 mg PO QHS [facility] Last Admin: 03/25/20 22:09 Dose: 10 mg Documented by: Multivitamins/Minerals (Multivitamin With Minerals (Bkc)) 1 tablet PO DAILY@0800 [facility] Last Admin: 03/26/20 08:20 Dose: 1 tablet Documented by: Ondansetron HCl (Zofran) 4 mg IV Q6H PRN PRN PRN Reason: nausea/vomiting Last Admin: 03/25/20 04:48 Dose: 4 mg Documented by: Pantoprazole Sodium (Protonix) 20 mg PO DAILY [facility] Last Admin: 03/25/20 16:09 Dose: 20 mg Documented by: Sodium Chloride () 10 - 40 ml IV UD PRN PRN Reason: SALINE FLUSH Last Admin: 03/25/20 02:28 Dose: 10 ml Documented by: Medical Necessity - Tobacco Use Smoking Status: Former smoker Tobacco Use: Cigarettes Assessment/Plan All Active Problems (Last Reviewed 03/25/20 @ 17:[address] Rico Tilley, DO) Ureterolithiasis (Acute) Renal colic on left side (Acute) Intractable pain (Acute) Asymptomatic hypertensive urgency (Acute) History of bilateral knee replacement (Resolved) History of back surgery (Resolved) Cervical vertebral fusion (Resolved) History of removal of cyst (Resolved) Bronchitis (Acute) Rhinovirus (Acute) Severe sepsis (Acute) Acute respiratory insufficiency (Acute) Chest tightness (Resolved) Hypertensive urgency (Resolved) Left wrist pain (Resolved) Syncopal episodes (Resolved) Ureteral calculus, right (Resolved) 74-year-old male with a kidney stone status post ureteroscopy and laser developed hypoxia and difficulty breathing after the procedure after anesthesia and fluids we thought that perhaps he is in congestive heart failure he is getting better this morning but I do not think he is ready for discharge we will continue with gentle diuresis and plan for discharge once he is off oxygen and his breathing is better.
[2020-03-26] MEDS: dilTIAZem CD 180 MG Capsule 360 MG PO (10:02)
[2020-03-26] MEDS: BALSALAZIDE DISODIUM 750 MG CAPSULE PO ×2 (10:02→22:09)
[2020-03-26] MEDS: DULoxetine Hcl 60 MG Capsule PO (10:03)
[2020-03-26] MEDS: hydroCHLOROthiazide 25 MG Tablet PO (10:03)
[2020-03-26] MEDS: Amiodarone 200 MG Tablet PO (10:03)
[2020-03-26] MEDS: Pantoprazole Sodium 20 MG Tablet PO (10:04)
[2020-03-26] MEDS: Lisinopril 40 MG Tablet PO (10:04)
[2020-03-26] MEDS: Gabapentin 600 MG Tablet PO ×2 (10:04→22:09)
[2020-03-26] MEDS: Isosorbide Mononitrate 60 MG Tablet PO (10:04)
[2020-03-26] MEDS: Furosemide 40 MG/4 ML Vial IV ×2 (10:06→17:44)
--- NOTE | 2020-03-26 10:47 | CASEMGMT ---
RN CM Assessment Note Intro role of CM to patient in room. Patient is awake, alert and able to participate in assessment. PCP, pharmacy, demographics verified. Pt states he is very independent, no care needs and no concerns on dc. Pt is aware he will be following up with Dr. Larson. Pt does not wear oxygen at home, but does have Cpap. Hopes to return home and not need oxygen. Currently 97% on 3L [place]. Patient is receiving Lasix 40 mg IV and plan is for re-evaluation tomorrow for dc. Presentation: Severe flank pain Diagnosis: Obstructing kidney stone/ ureteroscopy, stent placed PCP: Dr. Jayme Yang Specialists: Dr. Modi, pulmonology; Dr. Paiz, cardiology; Dr. Larson, urology Insurance: [facility] Preferred Pharmacy: [facility] Prescription Benefit: yes LNOK: Natasha Gimenez, Living Arrangements: Lives independently with . Denies care needs and if any arise, is able to assist at home. Tranportation: drives DME: cpap HHC: NO SNF: NO Patient DC Goals: home on discharge DC Plan: anticipate home. Patient would prefer not to need oxygen @ home. If Home oxygen is needed, patient can use [facility], [employer], [facility]. Oxygen instructions on front of chart. Jose RAGLAND RN ACM
[2020-03-26] MEDS: Calcium Carb/Vitamin D 1 TABLET Tablet PO (11:30)
--- NOTE | 2020-03-26 12:06 | PN_ITS ---
Patient Problems: Active and Suspected Problems (Last Reviewed 03/25/20 @ 17:[address] Rico Tilley, DO) Ureterolithiasis (Acute) Renal colic on left side (Acute) Intractable pain (Acute) Reason for Visit: CHF Subjective: [place] that he pulled out his stent, by brushing against something. Vitals/I&O's: Vital Signs Temp Pulse Resp BP Pulse Ox 36.6 C 51 L 16 138/70 H 95 03/26/20 08:07 03/26/20 08:36 03/26/20 08:07 03/26/20 08:07 03/26/20 08:07 Oxygen Flow Rate (L/min) 3 Oxygen Delivery Method Nasal Cannula Weight: 90.2 kg Body Mass Index (BMI) 31.8 Finger Stick Blood Glucose 151 Intake and Output for Last 24 Hours 03/24/20 03/25/20 03/26/20 23:59 23:59 23:59 Intake Total 2419.17 / 2669.17 3513.75 / 3713.75 600 / 600 Output Total 1100 / 1725 2275 / 2400 775 / 775 Balance 1319.17 / 944.17 1238.75 / 1313.75 -175 / -175 General: - - alert. slightly confused. afebrile. HEENT: Atraumatic, Normocephalic Oral: Moist Mucosa, No Gingival or Mucosal Lesions/ Ulcerations Neck: No Nodes, Thyroid Normal Size and Texture Lungs: Normal air movement, - - fine diffuse crackles Cardiovascular: Regular rate, Regular Rhythm, Normal S1, Normal S2, No murmurs Abdomen: Bowel Sounds Present, Soft, Non Tender, Non-Distended Extremities: No edema, No Calf Tenderness Laboratory Results 03/25/20 12:46: POC Glucose 120 H 03/26/20 07:02: WBC 8.7, RBC 2.95 L, Hgb 8.6 L, Hct 27.3 L, MCV 92.5, MCH 29.2, MCHC 31.5 L, RDW Std Deviation 55.2 H, RDW Coeff of Azeem 16.3 H, Plt Count 151, MPV 12.2 H, Immature Gran % (Auto) 0.500, Neut % (Auto) 65.4, Lymph % (Auto) 20.8, [place] % (Auto) 11.4 H, Eos % (Auto) 1.7, Baso % (Auto) 0.2, Absolute Neuts (auto) 5.7, Absolute Lymphs (auto) 1.81, Nucleated RBC % 0 03/26/20 07:02: Sodium 139, Potassium 3.5, Chloride 107, Carbon Dioxide 26.0, Anion Gap 6, BUN 37 H, Creatinine 2.18 H, Estim Creat Clear Calc 25.47, Est GFR (MDRD) Af Amer 38 L, Est GFR (MDRD) Non-Af 31 L, BUN/Creatinine Ratio 17.0, Glucose 84, Calcium 7.9 L, Magnesium 2.1 Current Medications Amiodarone HCl (Cordarone) 200 mg PO DAILY [facility] Last Admin: 03/26/20 10:03 Dose: 200 mg Documented by: Atorvastatin Calcium (Lipitor) 40 mg PO QHS [facility] Last Admin: 03/25/20 22:12 Dose: 40 mg Documented by: Balsalazide (Balsalazide Disodium) 750 mg PO BID [facility] Last Admin: 03/26/20 10:02 Dose: 750 mg Documented by: Calcium/Vitamin D (Os-Abiel 500mg + D) 1 tablet PO DAILY@1200 [facility] Last Admin: 03/26/20 11:30 Dose: 1 tablet Documented by: Clonidine 0.1 mg/ Clonidine 0. (2 mg) 0.3 mg PO TID [facility] Last Admin: 03/26/20 05:53 Dose: 0.3 mg Documented by: Diltiazem HCl (Cardizem Cd) 360 mg PO DAILY [facility] Last Admin: 03/26/20 10:02 Dose: 360 mg Documented by: Diphenhydramine HCl (Benadryl) 25 mg PO BID PRN PRN PRN Reason: alergic reaction Duloxetine HCl (Cymbalta) 60 mg PO DAILY [facility] Last Admin: 03/26/20 10:03 Dose: 60 mg Documented by: Furosemide (Lasix) 40 mg IV BID@1000,1800 [facility] Last Admin: 03/26/20 10:06 Dose: 40 mg Documented by: Gabapentin (Neurontin) 600 mg PO BID [facility] Last Admin: 03/26/20 10:04 Dose: 600 mg Documented by: Glimepiride (Amaryl) 2 mg PO DAILY@0800 [facility] Last Admin: 03/26/20 08:20 Dose: 2 mg Documented by: Hydralazine HCl (Apresoline) 100 mg PO TID [facility] Last Admin: 03/26/20 05:52 Dose: 100 mg Documented by: Hydrochlorothiazide (Hctz) 25 mg PO DAILY [facility] Last Admin: 03/26/20 10:03 Dose: 25 mg Documented by: Hydromorphone HCl (Dilaudid Inj) 0.5 mg IV Q2H PRN PRN PRN Reason: Pain Score 6-10/10 Ipratropium [place] (Atrovent Nasal [place] (G)) 1 spray NASAL TID PRN PRN PRN Reason: CONGESTION Isosorbide Mononitrate (Imdur) 60 mg PO DAILY [facility] Last Admin: 03/26/20 10:04 Dose: 60 mg Documented by: Ketorolac Tromethamine (Toradol (Bkc)) 15 mg IV Q6H PRN PRN PRN Reason: PAIN (1-10) Stop: 03/29/20 06:25 Last Admin: 03/25/20 04:44 Dose: 15 mg Documented by: Lisinopril (Zestril) 40 mg PO DAILY [facility] Last Admin: 03/26/20 10:04 Dose: 40 mg Documented by: Loratadine (Claritin) 10 mg PO QHS [facility] Last Admin: 03/25/20 22:09 Dose: 10 mg Documented by: Multivitamins/Minerals (Multivitamin With Minerals (Bkc)) 1 tablet PO DAILY@0800 [facility] Last Admin: 03/26/20 08:20 Dose: 1 tablet Documented by: Ondansetron HCl (Zofran) 4 mg IV Q6H PRN PRN PRN Reason: nausea/vomiting Last Admin: 03/25/20 04:48 Dose: 4 mg Documented by: Pantoprazole Sodium (Protonix) 20 mg PO DAILY [facility] Last Admin: 03/26/20 10:04 Dose: 20 mg Documented by: Sodium Chloride () 10 - 40 ml IV UD PRN PRN Reason: SALINE FLUSH Last Admin: 03/25/20 02:28 Dose: 10 ml Documented by: STROKE Vital Signs/Narrative: Vital Signs Pulse 03/26/20 08:36 51 L Medical Necessity - Tobacco Use Smoking Status: Former smoker Tobacco Use: Cigarettes Assessment/Plan All Active Problems (Last Reviewed 03/25/20 @ 17:[address] Rico Jopperi, DO) Ureterolithiasis (Acute) Renal colic on left side (Acute) Intractable pain (Acute) Asymptomatic hypertensive urgency (Acute) History of bilateral knee replacement (Resolved) History of back surgery (Resolved) Cervical vertebral fusion (Resolved) History of removal of cyst (Resolved) Bronchitis (Acute) Rhinovirus (Acute) Severe sepsis (Acute) Acute respiratory insufficiency (Acute) Chest tightness (Resolved) Hypertensive urgency (Resolved) Left wrist pain (Resolved) Syncopal episodes (Resolved) Ureteral calculus, right (Resolved) 1. Acute heart failure with preserved ejection fraction * Ejection fraction of 65% from echocardiogram on February 02, 2020. 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 * Patient is +2108 mL since admission. * Will initiate IV furosemide 40 mg twice daily, strict I's and O's fluid restrict 1500 cc/day * No need for additional cardiac work-up as patient has had it recently with an echocardiogram in January. 2. Hypokalemia: * Will replace as it is 3.2 * Magnesium normal at 2.1 * Will give another 40 mEq orally today * Follow-up in the morning 3. Acute hypoxic respiratory insufficiency * Secondary to heart failure but compounded by underlying pulmonary hypertension and obstructive sleep apnea * Prior to discharge, check an amatory pulse ox to see if the patient would require oxygen * Patient has no COVID risk factors such as exposure nor do his symptoms correlate 4. Ureteral stones * Status post stent and laser lithotripsy * Management per urology 5. Obstructive sleep apnea * Complicates care but stable continue with his home CPAP 6. VTE prophylaxis with SCDs. 7. Disposition: Anticipate the patient, for the heart failure being hospitalized for the next 24 to 48 hours. 8. confusion: monitor. hold potentiating medication (hydromorphone, diphenhydramine [which he hasn't received either]). monitor 9. Pain: hold narcotics. hold NSAIDs given CHF. start PRN acetaminophen. Inpatient E&M: 55212 Subs Hosp L2
[2020-03-26] MEDS: 0.9% Saline Lock 10 ML Syringe IV ×2 (17:44→20:45)
[2020-03-26] MEDS: Acetaminophen 325 MG Tablet 650 MG PO (20:45)
[2020-03-26] MEDS: Ondansetron 4 MG/2 ML Vial IV (20:45)
[2020-03-26] MEDS: BENZOCAINE/MENTHOL 1 LOZENGE MUCOUS MEM (20:47)
[2020-03-26] MEDS: Atorvastatin Calcium 40 MG Tablet PO (22:09)
[2020-03-26] MEDS: Senna/Docusate Sodium 1 Tablet 2 TABLET PO (22:09)
[2020-03-26] MEDS: Loratadine 10 MG Tablet PO (22:09)
[2020-03-27] VITALS (19 sets, daily range): BP systolic 134–161; BP diastolic 63–81; PULSE 51–58; RESP 18; TEMP 36.2–36.6; O2SAT 85–97
[2020-03-27 00:15] LABS: Bedside Glucose 94 mg/dL (70-110)
[2020-03-27] MEDS: Clonidine HCl 0.1 MG, Clonidine HCl 0.2 MG 0.3 MG PO ×3 (06:09→21:48)
[2020-03-27] MEDS: hydrALAZINE 50 MG Tablet 100 MG PO ×3 (06:09→21:47)
[2020-03-27 07:00] LABS: Anion Gap 5 (5-15); BUN 38 mg/dL (7-18); BUN/Creat Ratio 18.3 RATIO (10-20); Calcium,Total 8.5 mg/dL (8.5-10.1); Chloride 110 mmol/L (98-107); Creatinine, Serum 2.08 mg/dL (0.70-1.30); EST Glomerular Filtration Rate 33 mL/min (>60); Est Glom Filt Rate - Afr Amer 40 mL/min (>60); Estimated Creatinine Clearance 26.69 ml/min; Glucose 86 mg/dL (74-106); Potassium 3.3 mmol/L (3.5-5.1); Sodium Level 143 mmol/L (136-145)
--- NOTE | 2020-03-27 07:54 | PN_ITS ---
Patient Problems: Active and Suspected Problems (Last Reviewed 03/25/20 @ 17:[address] Rico Tilley, DO) Ureterolithiasis (Acute) Renal colic on left side (Acute) Intractable pain (Acute) Subjective: Breathing well. Feels shaky, but denies fever nor chills. Nauseated, but eating well. Kidney pain when he urinates, but resolves after urination. Vitals/I&O's: Vital Signs Temp Pulse Resp BP Pulse Ox 36.2 C L 58 L 18 153/78 H 97 03/27/20 02:52 03/27/20 06:09 03/27/20 02:52 03/27/20 06:09 03/27/20 02:52 Oxygen Flow Rate (L/min) 3 Oxygen Delivery Method CPAP Weight: 90.2 kg Body Mass Index (BMI) 31.8 Finger Stick Blood Glucose 151 Intake and Output for Last 24 Hours 03/25/20 03/26/20 03/27/20 23:59 23:59 23:59 Intake Total 3513.75 / 3713.75 600 / 600 100 / 100 Output Total 2275 / 2400 2475 / 2475 1650 / 1650 Balance 1238.75 / 1313.75 -1875 / -1875 -1550 / -1550 General: Alert, No apparent distress HEENT: Atraumatic, Normocephalic Oral: Moist Mucosa, No Gingival or Mucosal Lesions/ Ulcerations Neck: No Nodes, Thyroid Normal Size and Texture Lungs: Clear to auscultation, Normal air movement, No rhonchi, No wheeze Cardiovascular: Regular rate, Regular Rhythm, Normal S1, Normal S2, No murmurs Abdomen: Bowel Sounds Present, Soft, Non Tender, Non-Distended, No Hepato- splenomegaly Extremities: No edema, No Calf Tenderness Laboratory Results 03/26/20 07:02: WBC 8.7, RBC 2.95 L, Hgb 8.6 L, Hct 27.3 L, MCV 92.5, MCH 29.2, MCHC 31.5 L, RDW Std Deviation 55.2 H, RDW Coeff of Azeem 16.3 H, Plt Count 151, MPV 12.2 H, Immature Gran % (Auto) 0.500, Neut % (Auto) 65.4, Lymph % (Auto) 20.8, [place] % (Auto) 11.4 H, Eos % (Auto) 1.7, Baso % (Auto) 0.2, Absolute Neuts (auto) 5.7, Absolute Lymphs (auto) 1.81, Nucleated RBC % 0 03/26/20 07:02: Sodium 139, Potassium 3.5, Chloride 107, Carbon Dioxide 26.0, Anion Gap 6, BUN 37 H, Creatinine 2.18 H, Estim Creat Clear Calc 25.47, Est GFR (MDRD) Af Amer 38 L, Est GFR (MDRD) Non-Af 31 L, BUN/Creatinine Ratio 17.0, Glucose 84, Calcium 7.9 L, Magnesium 2.1 03/27/20 00:10: POC Glucose 94 03/27/20 05:35: Sodium 143, Potassium 3.3 L, Chloride 110 H, Carbon Dioxide 28.0, Anion Gap 5, BUN 38 H, Creatinine 2.08 H, Estim Creat Clear Calc 26.69, Est GFR (MDRD) Af Amer 40 L, Est GFR (MDRD) Non-Af 33 L, BUN/Creatinine Ratio 18.3, Glucose 86, Calcium 8.5 Current Medications Acetaminophen (Tylenol) 650 mg PO Q4H PRN PRN PRN Reason: Pain Score 1-10/10 Last Admin: 03/26/20 20:45 Dose: 650 mg Documented by: Amiodarone HCl (Cordarone) 200 mg PO DAILY [facility] Last Admin: 03/26/20 10:03 Dose: 200 mg Documented by: Atorvastatin Calcium (Lipitor) 40 mg PO QHS [facility] Last Admin: 03/26/20 22:09 Dose: 40 mg Documented by: Balsalazide (Balsalazide Disodium) 750 mg PO BID [facility] Last Admin: 03/26/20 22:09 Dose: 750 mg Documented by: Calcium/Vitamin D (Os-Abiel 500mg + D) 1 tablet PO DAILY@1200 [facility] Last Admin: 03/26/20 11:30 Dose: 1 tablet Documented by: Clonidine 0.1 mg/ Clonidine 0. (2 mg) 0.3 mg PO TID [facility] Last Admin: 03/27/20 06:09 Dose: 0.3 mg Documented by: Diltiazem HCl (Cardizem Cd) 360 mg PO DAILY [facility] Last Admin: 03/26/20 10:02 Dose: 360 mg Documented by: Duloxetine HCl (Cymbalta) 60 mg PO DAILY [facility] Last Admin: 03/26/20 10:03 Dose: 60 mg Documented by: Furosemide (Lasix) 40 mg PO DAILY [facility] Gabapentin (Neurontin) 600 mg PO BID [facility] Last Admin: 03/26/20 22:09 Dose: 600 mg Documented by: Glimepiride (Amaryl) 2 mg PO DAILY@0800 [facility] Last Admin: 03/26/20 08:20 Dose: 2 mg Documented by: Hydralazine HCl (Apresoline) 100 mg PO TID [facility] Last Admin: 03/27/20 06:09 Dose: 100 mg Documented by: Hydrochlorothiazide (Hctz) 25 mg PO DAILY [facility] Last Admin: 03/26/20 10:03 Dose: 25 mg Documented by: Ipratropium [place] (Atrovent Nasal [place] (G)) 1 spray NASAL TID PRN PRN PRN Reason: CONGESTION Isosorbide Mononitrate (Imdur) 60 mg PO DAILY [facility] Last Admin: 03/26/20 10:04 Dose: 60 mg Documented by: Lisinopril (Zestril) 40 mg PO DAILY [facility] Last Admin: 03/26/20 10:04 Dose: 40 mg Documented by: Loratadine (Claritin) 10 mg PO QHS [facility] Last Admin: 03/26/20 22:09 Dose: 10 mg Documented by: Multivitamins/Minerals (Multivitamin With Minerals (Bkc)) 1 tablet PO DAILY@0800 [facility] Last Admin: 03/26/20 08:20 Dose: 1 tablet Documented by: Ondansetron HCl (Zofran) 4 mg IV Q6H PRN PRN PRN Reason: nausea/vomiting Last Admin: 03/26/20 20:45 Dose: 4 mg Documented by: Pantoprazole Sodium (Protonix) 20 mg PO DAILY [facility] Last Admin: 03/26/20 10:04 Dose: 20 mg Documented by: Potassium Chloride (K-Dur) 40 meq PO X1 ONE Stop: 03/27/20 08:01 Senna/Docusate Sodium (Senokot-S, Dina-Colace) 2 tablet PO DAILY [facility] Last Admin: 03/26/20 22:09 Dose: 2 tablet Documented by: Sodium Chloride () 10 - 40 ml IV UD PRN PRN Reason: SALINE FLUSH Last Admin: 03/26/20 20:45 Dose: 10 ml Documented by: Throat Lozenges (Cepacol Sore Throat Lozenge) 1 lozenge MUCOUS MEM Q2H PRN PRN PRN Reason: SORE THROAT Last Admin: 03/26/20 20:47 Dose: 1 lozenge Documented by: STROKE Vital Signs/Narrative: Vital Signs Pulse BP BP 03/27/20 06:09 58 L 153/78 H 03/27/20 05:58 55 L 153/78 H 03/27/20 04:00 52 L Medical Necessity - Tobacco Use Smoking Status: Former smoker Tobacco Use: Cigarettes Assessment/Plan All Active Problems (Last Reviewed 03/25/20 @ 17:[address] Rico Tilley, DO) Ureterolithiasis (Acute) Renal colic on left side (Acute) Intractable pain (Acute) Asymptomatic hypertensive urgency (Acute) History of bilateral knee replacement (Resolved) History of back surgery (Resolved) Cervical vertebral fusion (Resolved) History of removal of cyst (Resolved) Bronchitis (Acute) Rhinovirus (Acute) Severe sepsis (Acute) Acute respiratory insufficiency (Acute) Chest tightness (Resolved) Hypertensive urgency (Resolved) Left wrist pain (Resolved) Syncopal episodes (Resolved) Ureteral calculus, right (Resolved) 1. Acute heart failure with preserved ejection fraction * Ejection fraction of 65% from echocardiogram on February 02, 2020. 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 * Now balance is -867 * Change furosemide to 40 daily and will add supplement K-Dur. Rx sent to his pharmacy. * No need for additional cardiac work-up as patient has had it recently with an echocardiogram in January. 2. Hypokalemia: * Will replace as it is 3.2 * Magnesium normal at 2.1 * Will give another 40 mEq orally today 3. Acute hypoxic respiratory insufficiency * Secondary to heart failure but compounded by underlying pulmonary hypertension and obstructive sleep apnea * Prior to discharge, check an amatory pulse ox to see if the patient would require oxygen * Patient has no COVID risk factors such as exposure nor do his symptoms correlate * Check ambulatory pulse ox. 4. Ureteral stones * Status post stent and laser lithotripsy * Management per urology 5. Obstructive sleep apnea * Complicates care but stable continue with his home CPAP 6. VTE prophylaxis with SCDs. 7. Disposition: Anticipate the patient, for the heart failure being hospitalized for the next 24 to 48 hours. 8. confusion: resolved. Medically stable for discharge. I can sign forms for oxygen, if necessary. Inpatient E&M: 23245 Subs Hosp L2
[2020-03-27] MEDS: BALSALAZIDE DISODIUM 750 MG CAPSULE PO ×2 (08:16→21:47)
[2020-03-27] MEDS: Multivitamins,Ther W-Minerals Tablet 1 TABLET PO (08:16)
[2020-03-27] MEDS: Glimepiride 2 MG Tablet PO (08:16)
[2020-03-27] MEDS: DULoxetine Hcl 60 MG Capsule PO (08:17)
[2020-03-27] MEDS: dilTIAZem CD 180 MG Capsule 360 MG PO (08:17)
[2020-03-27] MEDS: hydroCHLOROthiazide 25 MG Tablet PO (08:18)
[2020-03-27] MEDS: Isosorbide Mononitrate 60 MG Tablet PO (08:18)
[2020-03-27] MEDS: Gabapentin 600 MG Tablet PO ×2 (08:18→21:47)
[2020-03-27] MEDS: Pantoprazole Sodium 20 MG Tablet PO (08:18)
[2020-03-27] MEDS: Senna/Docusate Sodium 1 Tablet 2 TABLET PO (08:18)
[2020-03-27] MEDS: Lisinopril 40 MG Tablet PO (08:19)
[2020-03-27] MEDS: Furosemide 40 MG Tablet PO (08:21)
[2020-03-27] MEDS: Amiodarone 200 MG Tablet PO (08:21)
--- NOTE | 2020-03-27 10:01 | PN_ITS ---
Patient Problems: Active and Suspected Problems (Last Reviewed 03/25/20 @ 17:[address] Rico Tilley, DO) Ureterolithiasis (Acute) Renal colic on left side (Acute) Intractable pain (Acute) Subjective: 74-year-old male admitted for kidney stone developed congestive heart failure after the surgical procedure he is now still requiring oxygen to keep his saturations above 90% he was 85% on room air walking in the hallways per the nursing report. - Physical Exam Vitals/I&O's: Vital Signs Temp Pulse Resp BP Pulse Ox 97.2 F L 56 L 18 157/77 H 93 03/27/20 07:59 03/27/20 07:59 03/27/20 07:59 03/27/20 07:59 03/27/20 08:14 Oxygen Flow Rate (L/min) [ 2 AMBULATION with Oxygen] Oxygen Flow Rate (L/min) 3 Oxygen Delivery Method Room Air Weight: 90.2 kg Body Mass Index (BMI) 31.8 Finger Stick Blood Glucose 151 Intake and Output for Last 24 Hours 03/25/20 03/26/20 03/27/20 23:59 23:59 23:59 Intake Total 3513.75 / 3713.75 600 / 600 100 / 100 Output Total 2275 / 2400 2475 / 2475 1650 / 1650 Balance 1238.75 / 1313.75 -1875 / -1875 -1550 / -1550 General: Alert, Oriented x3, Cooperative HEENT: Atraumatic, PERRLA, EOMI, Normocephalic Neck: Supple, No JVD, Negative Carotid Bruits Lungs: Clear to auscultation, Normal air movement Cardiovascular: Regular rate, No murmurs Abdomen: Bowel Sounds Present, Soft, Non Tender Extremities: No edema, Capillary Refill Less than 3 Seconds Skin: No rashes, No breakdown Musculoskeletal: No Tenderness to Palpation of Joints or Extremities Neurological: Cranial nerves II-XII grossly intact Psych/Mental Status: Normal Affect, Appropriate Laboratory Results 03/27/20 00:10: POC Glucose 94 03/27/20 05:35: Sodium 143, Potassium 3.3 L, Chloride 110 H, Carbon Dioxide 28.0, Anion Gap 5, BUN 38 H, Creatinine 2.08 H, Estim Creat Clear Calc 26.69, Est GFR (MDRD) Af Amer 40 L, Est GFR (MDRD) Non-Af 33 L, BUN/Creatinine Ratio 18.3, Glucose 86, Calcium 8.5 Current Medications Acetaminophen (Tylenol) 650 mg PO Q4H PRN PRN PRN Reason: Pain Score 1-10/10 Last Admin: 03/26/20 20:45 Dose: 650 mg Documented by: Amiodarone HCl (Cordarone) 200 mg PO DAILY [facility] Last Admin: 03/27/20 08:21 Dose: 200 mg Documented by: Atorvastatin Calcium (Lipitor) 40 mg PO QHS [facility] Last Admin: 03/26/20 22:09 Dose: 40 mg Documented by: Balsalazide (Balsalazide Disodium) 750 mg PO BID [facility] Last Admin: 03/27/20 08:16 Dose: 750 mg Documented by: Calcium/Vitamin D (Os-Abiel 500mg + D) 1 tablet PO DAILY@1200 [facility] Last Admin: 03/26/20 11:30 Dose: 1 tablet Documented by: Clonidine 0.1 mg/ Clonidine 0. (2 mg) 0.3 mg PO TID [facility] Last Admin: 03/27/20 06:09 Dose: 0.3 mg Documented by: Diltiazem HCl (Cardizem Cd) 360 mg PO DAILY [facility] Last Admin: 03/27/20 08:17 Dose: 360 mg Documented by: Duloxetine HCl (Cymbalta) 60 mg PO DAILY [facility] Last Admin: 03/27/20 08:17 Dose: 60 mg Documented by: Furosemide (Lasix) 40 mg PO DAILY [facility] Last Admin: 03/27/20 08:21 Dose: 40 mg Documented by: Gabapentin (Neurontin) 600 mg PO BID [facility] Last Admin: 03/27/20 08:18 Dose: 600 mg Documented by: Glimepiride (Amaryl) 2 mg PO DAILY@0800 [facility] Last Admin: 03/27/20 08:16 Dose: 2 mg Documented by: Hydralazine HCl (Apresoline) 100 mg PO TID [facility] Last Admin: 03/27/20 06:09 Dose: 100 mg Documented by: Hydrochlorothiazide (Hctz) 25 mg PO DAILY [facility] Last Admin: 03/27/20 08:18 Dose: 25 mg Documented by: Ipratropium [place] (Atrovent Nasal [place] (G)) 1 spray NASAL TID PRN PRN PRN Reason: CONGESTION Isosorbide Mononitrate (Imdur) 60 mg PO DAILY [facility] Last Admin: 03/27/20 08:18 Dose: 60 mg Documented by: Lisinopril (Zestril) 40 mg PO DAILY [facility] Last Admin: 03/27/20 08:19 Dose: 40 mg Documented by: Loratadine (Claritin) 10 mg PO QHS [facility] Last Admin: 03/26/20 22:09 Dose: 10 mg Documented by: Multivitamins/Minerals (Multivitamin With Minerals (Bkc)) 1 tablet PO DAILY@0800 [facility] Last Admin: 03/27/20 08:16 Dose: 1 tablet Documented by: Ondansetron HCl (Zofran) 4 mg IV Q6H PRN PRN PRN Reason: nausea/vomiting Last Admin: 03/26/20 20:45 Dose: 4 mg Documented by: Pantoprazole Sodium (Protonix) 20 mg PO DAILY [facility] Last Admin: 03/27/20 08:18 Dose: 20 mg Documented by: Senna/Docusate Sodium (Senokot-S, Dina-Colace) 2 tablet PO DAILY [facility] Last Admin: 03/27/20 08:18 Dose: 2 tablet Documented by: Sodium Chloride () 10 - 40 ml IV UD PRN PRN Reason: SALINE FLUSH Last Admin: 03/26/20 20:45 Dose: 10 ml Documented by: Throat Lozenges (Cepacol Sore Throat Lozenge) 1 lozenge MUCOUS MEM Q2H PRN PRN PRN Reason: SORE THROAT Last Admin: 03/26/20 20:47 Dose: 1 lozenge Documented by: Medical Necessity - Tobacco Use Smoking Status: Former smoker Tobacco Use: Cigarettes Assessment/Plan All Active Problems (Last Reviewed 03/25/20 @ 17:[address] Rico Tilley, DO) Ureterolithiasis (Acute) Renal colic on left side (Acute) Intractable pain (Acute) Asymptomatic hypertensive urgency (Acute) History of bilateral knee replacement (Resolved) History of back surgery (Resolved) Cervical vertebral fusion (Resolved) History of removal of cyst (Resolved) Bronchitis (Acute) Rhinovirus (Acute) Severe sepsis (Acute) Acute respiratory insufficiency (Acute) Chest tightness (Resolved) Hypertensive urgency (Resolved) Left wrist pain (Resolved) Syncopal episodes (Resolved) Ureteral calculus, right (Resolved) 74-year-old male status post ureteroscopy laser stone and stent. Will discharge home once stable saturations are still low but getting better. May be home tomorrow.
[2020-03-27] MEDS: Calcium Carb/Vitamin D 1 TABLET Tablet PO (13:39)
[2020-03-27] MEDS: Acetaminophen 325 MG Tablet 650 MG PO ×3 (13:44→23:39)
[2020-03-27] MEDS: Bisacodyl 5 MG Tablet 10 MG PO (14:57)
[2020-03-27] MEDS: Atorvastatin Calcium 40 MG Tablet PO (21:47)
[2020-03-27] MEDS: Loratadine 10 MG Tablet PO (21:50)
[2020-03-28] VITALS (8 sets, daily range): BP systolic 154–157; BP diastolic 77–83; PULSE 51–61; RESP 18; TEMP 36.8–36.9; O2SAT 92–98
[2020-03-28] MEDS: Clonidine HCl 0.1 MG, Clonidine HCl 0.2 MG 0.3 MG PO ×2 (05:49→12:04)
[2020-03-28] MEDS: hydrALAZINE 50 MG Tablet 100 MG PO ×2 (05:49→12:04)
--- NOTE | 2020-03-28 07:03 | PN_ITS ---
Patient Problems: Active and Suspected Problems (Last Reviewed 03/25/20 @ 17:[address] Rico Tilley, DO) Ureterolithiasis (Acute) Renal colic on left side (Acute) Intractable pain (Acute) Subjective: feeling better can go home. - Physical Exam Vitals/I&O's: Vital Signs Temp Pulse Resp BP Pulse Ox 98.4 F 56 L 18 157/83 H 98 03/28/20 02:30 03/28/20 05:49 03/28/20 02:30 03/28/20 05:49 03/28/20 02:30 Oxygen Flow Rate (L/min) [ 2 AMBULATION with Oxygen] Oxygen Flow Rate (L/min) 2 Oxygen Delivery Method CPAP Weight: 90.2 kg Body Mass Index (BMI) 31.8 Finger Stick Blood Glucose 151 Intake and Output for Last 24 Hours 03/26/20 03/27/20 03/28/20 23:59 23:59 23:59 Intake Total 600 / 600 740 / 840 200 / 200 Output Total 2475 / 2475 2550 / 2750 500 / 500 Balance -1875 / -1875 -1810 / -1910 -300 / -300 General: Alert, Oriented x3, Cooperative HEENT: Atraumatic, PERRLA, EOMI, Normocephalic Neck: Supple, No JVD, Negative Carotid Bruits Lungs: Clear to auscultation, Normal air movement Cardiovascular: Regular rate, No murmurs Abdomen: Bowel Sounds Present, Soft, Non Tender Extremities: No edema, Capillary Refill Less than 3 Seconds Skin: No rashes, No breakdown Musculoskeletal: No Tenderness to Palpation of Joints or Extremities Neurological: Cranial nerves II-XII grossly intact Psych/Mental Status: Normal Affect, Appropriate Current Medications Acetaminophen (Tylenol) 650 mg PO Q4H PRN PRN PRN Reason: Pain Score 1-10/10 Last Admin: 03/27/20 23:39 Dose: 650 mg Documented by: Amiodarone HCl (Cordarone) 200 mg PO DAILY [facility] Last Admin: 03/27/20 08:21 Dose: 200 mg Documented by: Atorvastatin Calcium (Lipitor) 40 mg PO QHS [facility] Last Admin: 03/27/20 21:47 Dose: 40 mg Documented by: Balsalazide (Balsalazide Disodium) 750 mg PO BID [facility] Last Admin: 03/27/20 21:47 Dose: 750 mg Documented by: Calcium/Vitamin D (Os-Abiel 500mg + D) 1 tablet PO DAILY@1200 [facility] Last Admin: 03/27/20 13:39 Dose: 1 tablet Documented by: Clonidine 0.1 mg/ Clonidine 0. (2 mg) 0.3 mg PO TID [facility] Last Admin: 03/28/20 05:49 Dose: 0.3 mg Documented by: Diltiazem HCl (Cardizem Cd) 360 mg PO DAILY [facility] Last Admin: 03/27/20 08:17 Dose: 360 mg Documented by: Duloxetine HCl (Cymbalta) 60 mg PO DAILY [facility] Last Admin: 03/27/20 08:17 Dose: 60 mg Documented by: Furosemide (Lasix) 40 mg PO DAILY [facility] Last Admin: 03/27/20 08:21 Dose: 40 mg Documented by: Gabapentin (Neurontin) 600 mg PO BID [facility] Last Admin: 03/27/20 21:47 Dose: 600 mg Documented by: Glimepiride (Amaryl) 2 mg PO DAILY@0800 [facility] Last Admin: 03/27/20 08:16 Dose: 2 mg Documented by: Hydralazine HCl (Apresoline) 100 mg PO TID [facility] Last Admin: 03/28/20 05:49 Dose: 100 mg Documented by: Hydrochlorothiazide (Hctz) 25 mg PO DAILY [facility] Last Admin: 03/27/20 08:18 Dose: 25 mg Documented by: Ipratropium [place] (Atrovent Nasal [place] (G)) 1 spray NASAL TID PRN PRN PRN Reason: CONGESTION Isosorbide Mononitrate (Imdur) 60 mg PO DAILY [facility] Last Admin: 03/27/20 08:18 Dose: 60 mg Documented by: Lisinopril (Zestril) 40 mg PO DAILY [facility] Last Admin: 03/27/20 08:19 Dose: 40 mg Documented by: Loratadine (Claritin) 10 mg PO QHS [facility] Last Admin: 03/27/20 21:50 Dose: 10 mg Documented by: Multivitamins/Minerals (Multivitamin With Minerals (Bkc)) 1 tablet PO DAILY@0800 [facility] Last Admin: 03/27/20 08:16 Dose: 1 tablet Documented by: Ondansetron HCl (Zofran) 4 mg IV Q6H PRN PRN PRN Reason: nausea/vomiting Last Admin: 03/26/20 20:45 Dose: 4 mg Documented by: Pantoprazole Sodium (Protonix) 20 mg PO DAILY [facility] Last Admin: 03/27/20 08:18 Dose: 20 mg Documented by: Senna/Docusate Sodium (Senokot-S, Dina-Colace) 2 tablet PO DAILY [facility] Last Admin: 03/27/20 08:18 Dose: 2 tablet Documented by: Sodium Chloride () 10 - 40 ml IV UD PRN PRN Reason: SALINE FLUSH Last Admin: 03/26/20 20:45 Dose: 10 ml Documented by: Throat Lozenges (Cepacol Sore Throat Lozenge) 1 lozenge MUCOUS MEM Q2H PRN PRN PRN Reason: SORE THROAT Last Admin: 03/26/20 20:47 Dose: 1 lozenge Documented by: Medical Necessity - Tobacco Use Smoking Status: Former smoker Tobacco Use: Cigarettes Assessment/Plan All Active Problems (Last Reviewed 03/25/20 @ 17:[address] Rico Tilley, DO) Ureterolithiasis (Acute) Renal colic on left side (Acute) Intractable pain (Acute) Asymptomatic hypertensive urgency (Acute) History of bilateral knee replacement (Resolved) History of back surgery (Resolved) Cervical vertebral fusion (Resolved) History of removal of cyst (Resolved) Bronchitis (Acute) Rhinovirus (Acute) Severe sepsis (Acute) Acute respiratory insufficiency (Acute) Chest tightness (Resolved) Hypertensive urgency (Resolved) Left wrist pain (Resolved) Syncopal episodes (Resolved) Ureteral calculus, right (Resolved) may have to go home with temporary O2
--- NOTE | 2020-03-28 08:11 | RAD_ITS ---
STUDY: X-RAY CHEST REASON FOR EXAM: Male, 74 years old. Chest pain. TECHNIQUE: PA and lateral views of the chest. COMPARISON: Comparison is made with prior study dated March 25, 2020. FINDINGS: The lungs are clear and expanded. Scattered calcified granulomas. The CHF has cleared. Mild blunting of the costophrenic angles posteriorly. Normal size heart. Normal mediastinum and corina. Normal visualized pulmonary arteries. Normal visualized aortic arch and descending thoracic aorta. There are degenerative changes of the visualized thoracic spine. There is degenerative osteoarthritis of the bilateral shoulders. Prior laminectomy and fusion of the cervical spine. There is no demonstrated abnormality of the visualized soft tissue structures of the upper abdomen. RAD/Chest PA and Lateral IMPRESSION: The CHF has cleared. Mild residual blunting of both costophrenic angles. Electronically Signed: Shad Macias, at 13:40 EDT , Service support ,
[2020-03-28] MEDS: 0.9% Saline Lock 10 ML Syringe IV (08:42)
[2020-03-28] MEDS: Furosemide 40 MG Tablet PO (08:43)
[2020-03-28] MEDS: Senna/Docusate Sodium 1 Tablet 2 TABLET PO (08:43)
[2020-03-28] MEDS: dilTIAZem CD 180 MG Capsule 360 MG PO (08:51)
[2020-03-28] MEDS: Glimepiride 2 MG Tablet PO (08:51)
[2020-03-28] MEDS: hydroCHLOROthiazide 25 MG Tablet PO (08:51)
[2020-03-28] MEDS: Multivitamins,Ther W-Minerals Tablet 1 TABLET PO (08:51)
[2020-03-28] MEDS: DULoxetine Hcl 60 MG Capsule PO (08:51)
[2020-03-28] MEDS: Isosorbide Mononitrate 60 MG Tablet PO (08:51)
[2020-03-28] MEDS: Pantoprazole Sodium 20 MG Tablet PO (08:52)
[2020-03-28] MEDS: Gabapentin 600 MG Tablet PO (08:52)
[2020-03-28] MEDS: Amiodarone 200 MG Tablet PO (08:52)
[2020-03-28] MEDS: Lisinopril 40 MG Tablet PO (08:56)
--- NOTE | 2020-03-28 11:39 | DCINST_ITS ---
- Discharge Diagnoses Current Active Problems: Current Active and Chronic Problems (Last Reviewed 03/25/20 @ 17:[address] Rico Tilley, DO) Ureterolithiasis (Acute) Renal colic on left side (Acute) Intractable pain (Acute) You will use the following diet at home:: Calorie/Carbohydrate Controlled (specify 1200, 1400, etc) - 1800 michael Your food should be the consistency of: Regular Your liquids should be the consistency of: Regular/Thin Discharge Activity: Return to Normal Activity, May not drive while taking narcotic pain medications., May Shower Call your doctor if your incision/area has: Continuous Slow Oozing, Sudden Increased Bleeding, Increased Pain/ Swelling, Increased Redness, Foul Smelling Discharge, Swelling at the incision site Call your doctor if you observe: Fever of 101 or Higher Suture Line Care: Avoid Pulling/Pushing, Avoid Pinching/Bending Allergies/Adverse Reactions: Allergies aspirin Allergy (Severe, Verified 03/24/20 02:41) Mouth swelling donepezil [From Aricept] Adverse Reaction (Severe, Verified 03/24/20 02:41) Swelling morphine Adverse Reaction (Severe, Verified 03/24/20 02:41) UNABLE TO URINATE Medications to take at Discharge Infliximab-DYYB [Inflectra] 100 mg IV .COMPLEX 02/18/17 Esomeprazole Magnesium [Nexium 24Hr] 20 mg PO DAILY 04/15/17 Loratadine [Claritin] 10 mg PO QHS 04/15/17 Glimepiride [Amaryl] 2 mg PO DAILY 01/22/18 Balsalazide Disodium 750 mg PO BID 09/17/18 Multivit-Min/FA/Lycopen/Lutein [Centrum Silver Men Tablet] 1 ea PO DAILY 09/17/18 calcium carbonate-vitamin D3 600 mg (1,500 mg)-800 unit tablet 1 tab PO DAILY 06/02/19 duloxetine 60 mg capsule,delayed release 60 mg PO DAILY 06/02/19 gabapentin 600 mg tablet 600 mg PO BID tab 06/02/19 metformin 1,000 mg tablet 1,000 mg PO BID tab 10/06/19 clonidine HCl 0.3 mg tablet 0.3 mg PO TID #90 tab 12/24/19 Ipratropium [place] 15 ml NS PRN PRN 01/11/20 Amiodarone HCl 200 mg PO DAILY 03/24/20 Apixaban [Eliquis] 5 mg PO BID 03/24/20 Diltiazem HCl [Tiazac] 360 mg PO DAILY 03/24/20 DiphenhydrAMINE [Benadryl] 25 mg PO BID PRN PRN 03/24/20 Hydralazine HCl 100 mg PO TID 03/24/20 Isosorbide Mononitrate [Isosorbide Mononitrate ER] 60 mg PO DAILY 03/24/20 Lisinopril 40 mg PO DAILY 03/24/20 Rosuvastatin Calcium 20 mg PO DAILY 03/24/20 Ciprofloxacin [Cipro] 500 mg PO BID #10 tab 03/25/20 Furosemide [Lasix] 40 mg PO DAILY #30 tab 03/27/20 Potassium Chloride [K-Dur] 10 meq PO DAILY #30 tab 03/27/20 The following prescriptions were given: Ciprofloxacin [Cipro] 500 mg PO BID #10 tab Transmission Status: Received by [facility] Potassium Chloride [K-Dur] 10 meq PO DAILY #30 tab Transmission Status: Received by [id number] Furosemide [Lasix] 40 mg PO DAILY #30 tab Transmission Status: Received by [id number] Primary Care Physician: Jayme Yang MD [Primary Care Provider] - Test Results: Test results from this visit will be discussed in further detail at your follow- up appointment, if applicable. Please Follow Up With: Surinder Larson MD When: please call to make an appointment.
[2020-03-28] MEDS: Calcium Carb/Vitamin D 1 TABLET Tablet PO (12:02)
[2020-03-28] MEDS: BALSALAZIDE DISODIUM 750 MG CAPSULE PO (12:21)
--- NOTE | 2020-03-28 17:28 | PCM.PROGNOTE ---
Subjective: Patient was seen and examined earlier today, I ordered another chest x-ray on the patient today to recheck the previous x-ray indicating CHF. The chest x-ray today showed clearing of the CHF. Patient's pulse ox on room air was above 90% and he had no complaints of any shortness of breath or chest pain. - Physical Exam Vitals/I&O's: Vital Signs Temp Pulse Resp BP Pulse Ox 98.3 F 58 L 18 156/77 H 95 03/28/20 08:30 03/28/20 12:04 03/28/20 08:30 03/28/20 08:30 03/28/20 08:30 Oxygen Flow Rate (L/min) [ 2 AMBULATION with Oxygen] Oxygen Flow Rate (L/min) 2 Oxygen Delivery Method Room Air Weight: 90.2 kg Body Mass Index (BMI) 31.8 Finger Stick Blood Glucose 151 Intake and Output for Last 24 Hours 03/26/20 03/27/20 03/28/20 23:59 23:59 23:59 Intake Total 600 / 600 740 / 840 200 / 200 Output Total 2475 / 2475 2550 / 2750 1200 / 1200 Balance -1875 / -1875 -1810 / -1910 -1000 / -1000 General: Alert, Oriented x3, Cooperative, No apparent distress, Well developed, Well nourished HEENT: Atraumatic, PERRLA, EOMI, Normocephalic Oral: Moist Mucosa Neck: Supple, No JVD, Negative Carotid Bruits Lungs: Clear to auscultation, Normal air movement, No rhonchi, No wheeze Cardiovascular: Regular rate, Regular Rhythm, Normal S1, Normal S2, No murmurs, PMI Normal, No rub noted, No Gallop Abdomen: Bowel Sounds Present, Soft, Non Tender, Non-Distended, No hernias noted Extremities: No clubbing, No cyanosis, Capillary Refill Less than 3 Seconds Skin: No rashes, No breakdown Musculoskeletal: No Tenderness to Palpation of Joints or Extremities Neurological: Cranial nerves II-XII grossly intact, Neuro grossly intact, Sensory exam intact to light touch and pain Psych/Mental Status: Normal Affect, Appropriate, Alert and oriented to time, place, person, mood and affect Medical Necessity - Tobacco Use Smoking Status: Former smoker Tobacco Use: Cigarettes Assessment/Plan All Active Problems (Last Reviewed 03/25/20 @ 17:[address] Rico Tilley, DO) Ureterolithiasis (Acute) Renal colic on left side (Acute) Intractable pain (Acute) Asymptomatic hypertensive urgency (Acute) History of bilateral knee replacement (Resolved) History of back surgery (Resolved) Cervical vertebral fusion (Resolved) History of removal of cyst (Resolved) Bronchitis (Acute) Rhinovirus (Acute) Severe sepsis (Acute) Acute respiratory insufficiency (Acute) Chest tightness (Resolved) Hypertensive urgency (Resolved) Left wrist pain (Resolved) Syncopal episodes (Resolved) Ureteral calculus, right (Resolved) #1 acute diastolic congestive heart failure-this appears to have resolved at this time, patient will remain on Lasix as an outpatient, I have stopped his hydrochlorothiazide. #2 essential hypertension #3 mild pulmonary hypertension #4 paroxysmal atrial fibrillation-patient appears to be in sinus rhythm at this time #5 status post laser lithotripsy of left ureteral calculi and renal calculi and left stent placement-patient has been discharged per urology, I talked briefly with urology about patient's medications and home-going orders. Inpatient E&M: 63045 Subs Hosp L2
--- NOTE | 2020-03-29 15:37 | CASEMGMT ---
OCTAVIO BERMUDEZ Discharge Follow-up Phone Call: RACHAnna: Patrick Strata: 11 Call Date: 03/29/20 Discharge Date: 03/28/20 Time of Call: 1988 Duration: 4 min Admitting Diagnosis: Pain control for kidney stone OCTAVIO BERMUDEZ completed follow-up phone call after recent hospitalization. Patient states he feels weak and thinks he should have discharged with oxygen. Patient had oxygen testing prior to discharge and did not qualify. OCTAVIO BERMUDEZ instructed patient to follow-up with PCP. Patient states that he filled his prescriptions and is taking his Lasix. Patient had no questions regarding discharge instructions.
== END 2020-03-28 12:33 | disposition home or self-care (01) | DRG 668 ==
LOC: ED 04:58 → MS3 05:41
PROVIDERS: Anesthesiology; Admitting Provider Urology; Emergency Provider Emergency Medicine; PCP Family Medicine; Referring Provider Urology; Visit Provider Internal Medicine
PROC: 0TJ98ZZ Inspection of Ureter, Via Natural or Artificial Opening Endoscopic (ICD-10-PCS; CPT 52352; principal; 2020-03-25 09:40)
DX: N13.2 Hydronephrosis with renal and ureteral calculous obstruction (principal); I50.31 Acute diastolic (congestive) heart failure; I11.0 Hypertensive heart disease with heart failure; F03.90 Unspecified dementia, unspecified severity, without behavioral disturbance, psychotic disturbance, mood disturbance, and anxiety; I27.20 Pulmonary hypertension, unspecified; G47.33 Obstructive sleep apnea (adult) (pediatric); K57.30 Diverticulosis of large intestine without perforation or abscess without bleeding; K52.9 Noninfective gastroenteritis and colitis, unspecified; I48.0 Paroxysmal atrial fibrillation; E11.9 Type 2 diabetes mellitus without complications; E78.5 Hyperlipidemia, unspecified; E87.6 Hypokalemia; R09.02 Hypoxemia; Z87.442 Personal history of urinary calculi; Z79.01 Long term (current) use of anticoagulants; Z79.84 Long term (current) use of oral hypoglycemic drugs; Z79.899 Other long term (current) drug therapy; Z87.891 Personal history of nicotine dependence
CPT/HCPCS: 36415; 71045; 71046; 74176; 76000; 80048; 81001; 82962; 83735; 85025; 93005; 94640; 99284; J7030; A4216; C1769; C2617; J1940; J2405

== ENCOUNTER → 2020-04-18 07:57 | Outpatient (CLI) | payer MEDICARE, OTHER, SELFPAY ==
[2020-04-13 08:51] VITALS: BMI 31.8
[2020-04-18 08:12] VITALS: BP 194/89; PULSE 75; RESP 18; TEMP 36.1; O2SAT 95; BMI 30.2
[2020-04-18] MEDS: 0.9% NaCl Peripheral Flush Adult/Peds IV (08:37)
[2020-04-18] MEDS: 0.9% NaCl IVPB Med Flush (250 mL) 15 ML IV (08:37)
[2020-04-18 11:59] VITALS: BP 191/85; PULSE 75; RESP 16; TEMP 36.3; O2SAT 98
[2020-04-18 12:00] VITALS: BP 191/85; PULSE 75; RESP 16; TEMP 36.3; O2SAT 98
[2020-04-18 17:37] LABS: AST(SGOT) 29 U/L (15-37); Alanine Aminotransfer ALT/SGPT 29 U/L (16-61); Albumin, Serum 3.5 g/dL (3.2-5.0); Alkaline Phosphatase 56 U/L (45-117); Anion Gap 4 (5-15); BUN 23 mg/dL (7-18); BUN/Creat Ratio 13.5 RATIO (10-20); Bilirubin, Direct 0.12 mg/dL (0.00-0.30); Calcium,Total 8.7 mg/dL (8.5-10.1); Chloride 108 mmol/L (98-107); EST Glomerular Filtration Rate 42 mL/min (>60); Est Glom Filt Rate - Afr Amer 51 mL/min (>60); Free T3 1.7 pg/mL (2.18-3.98); Globulin 4.4 g/dL (2.2-4.2); Glucose 95 mg/dL (74-106); Potassium 3.9 mmol/L (3.5-5.1); Protein, Total 7.9 g/dL (6.4-8.2); Sodium Level 140 mmol/L (136-145); Thyroid Stim Hormone (TSH) 1.83 uIU/mL (0.358-3.74)
== END ==
PROVIDERS: Physician Assistant Medical; PCP Family Medicine; Referring Provider Internal Medicine Rheumatology; Visit Provider Internal Medicine Rheumatology
DX: M06.09 Rheumatoid arthritis without rheumatoid factor, multiple sites (principal); K51.80 Other ulcerative colitis without complications; I48.91 Unspecified atrial fibrillation; I10 Essential (primary) hypertension; E78.5 Hyperlipidemia, unspecified
CPT/HCPCS: 36415; 80048; 80076; 84439; 84443; 84481; 96413; 96415; J7050; A4216; Q5103

== ENCOUNTER → 2020-05-25 09:28 | Outpatient (CLI) | payer MEDICARE, OTHER, SELFPAY ==
[2020-05-25 09:15] VITALS: BMI 30.2
[2020-05-25 09:40] LABS: Absolute Lymphocyte Count 1.91 X10^3/uL (0.83-4.51); Absolute Neutrophil Count 4.3 X10^3/uL (2.0-7.7); Basophil# 0.03 X10^3/uL; Basophil% 0.4 % (0-1); Eosinophil# 0.24 X10^3/uL; Eosinophils% 3.3 % (0-5); Hematocrit 34.2 % (40-54); Hemoglobin 10.6 g/dL (13.0-16.5); Lymphocyte # 1.91 X10^3/ul (4.0); Lymphocyte % 26.6 % (19-41); Mean Corpuscular Hgb 28.6 pg (27.0-32.0); Mean Corpuscular Volume 92.2 fL (80-94); Mean Platelet Vol. 10.2 fl (6.2-12.0); Monocyte# 0.68 X10^3/uL; Monocyte% 9.5 % (0-10); NRBC Flagged by Analyzer 0 % (0-5); Neutrophil # 4.32 X10^3/uL (2.7-7.7); Neutrophil % 60.1 % (47-70); Platelet Count 213 K/mm3 (150-450); RBC Distribution Width CV 17.2 % (11.6-14.6); RBC Distribution Width SD 57.8 fl (35.1-43.9); Red Blood Count 3.71 M/mm3 (4.6-6.2); White Blood Count 7.2 K/mm3 (4.4-11.0)
== END ==
PROVIDERS: PCP Family Medicine; Referring Provider Physician Assistant Medical; Visit Provider Physician Assistant Medical
DX: N20.0 Calculus of kidney (principal)
CPT/HCPCS: 36415; 85025

== ENCOUNTER 2020-06-06 20:58 | Inpatient (IN) | payer MEDICARE, OTHER, SELFPAY ==
[2020-05-25 09:15] VITALS: BMI 30.2
[2020-06-06 20:58] VITALS: BP 143/97; PULSE 92; RESP 18; TEMP 36.3; O2SAT 94; BMI 30.2
--- NOTE | 2020-06-06 21:16 | EKG12_ITS ---
Test Reason : COUGH Blood Pressure : / mmHG Vent. Rate : 083 BPM Atrial Rate : 083 BPM P-R Int : 164 ms QRS Dur : 098 ms QT Int : 398 ms P-R-T Axes : 011 -22 036 degrees QTc Int : 467 ms Normal sinus rhythm Septal infarct , age undetermined Inferior infarct , age undetermined , cannot be excluded Abnormal ECG Confirmed by ROMAN LAUGHLIN, SUMEET ([id number]), video effects editor JESSENIA RAUSCH ([id number]) on 06/08/2020 9:37:51 AM Referred By: Sumeet Yang Confirmed By:SUMEET OWENS MD
--- NOTE | 2020-06-06 21:16 | RAD_ITS ---
STUDY: X-RAY CHEST REASON FOR EXAM: Male, 74 years old. Shortness of breath for 4 days. Cough. TECHNIQUE: Single AP portable view of the chest. COMPARISON: 03/28/2020. FINDINGS: The lungs are clear and expanded. There is no demonstrated pleural abnormality. Normal size heart. Normal mediastinum and corina. Normal visualized pulmonary arteries. Normal visualized aortic arch and descending thoracic aorta. There are diffuse degenerative changes of the visualized thoracic spine. There is degenerative osteoarthritis of the bilateral shoulders. There is no demonstrated abnormality of the visualized soft tissue structures of the upper abdomen. RAD/Chest 1 View (Portable) IMPRESSION: Degenerative changes, as described above. No demonstrated acute cardiopulmonary process. There is no major interval change. Electronically Signed: Juan Luis De La Torre DO at 22:37 EDT Tel [phone], Service support ,
--- NOTE | 2020-06-06 21:19 | ED.DCSUM_ITS ---
History of Present Illness Chief Complaint: Cough Informant: Patient, Family Onset: Days - 4 days Current Severity: Moderate Maximum Severity: Moderate Narrative: Patient presents with cough and shortness of breath for the past 4 days. He reports abdominal pain from coughing along with intermittent pain up through the sternum in his chest. He denies fever or chills. He has had very minimal sputum brought up with cough. He does not have history of lung disease and does not normally use inhalers. He denies exposure to anyone with Covid. 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 Past Medical History - Allergies and Home Meds Allergies/Adverse Reactions: Allergies aspirin Allergy (Severe, Verified 06/06/20 21:00) Mouth swelling donepezil [From Aricept] Adverse Reaction (Severe, Verified 06/06/20 21:00) Swelling morphine Adverse Reaction (Severe, Verified 06/06/20 21:00) UNABLE TO URINATE Primary Care Physician: Jayme Yang MD [Primary Care Provider] - Prior records reviewed: Yes Surgical History: no surgical history, noncontributory, - - Fusion of the cervical spine, lumbar spine surgery, bilateral knee replacements, partial colon resection due to diverticulitis Lives: Spouse/ Significant Other Smoking Status: Former smoker - Family History Maternal Family History: Family History (Last Reviewed 04/07/20 @ 11:27 by Faye RIDER, PA) Mother Heart disease Diabetes Father Heart disease Lung disease Brother Heart disease Lung disease Cancer Sister Diabetes Cancer Family History: Reports: Heart Disease Paternal Family History: Family History (Last Reviewed 04/07/20 @ 11:27 by Faye RIDER, PA) Mother Heart disease Diabetes Father Heart disease Lung disease Brother Heart disease Lung disease Cancer Sister Diabetes Cancer Family History: Reports: COPD, Heart Disease Review of Systems General: Denies: Chills, Fever Eyes: Denies: Visual changes - bilaterally ENT: Denies: Bilateral ear pain Cardiovascular: Reports: Chest pain Respiratory: Reports: Dyspnea, Cough, Sputum Gastrointestinal: Reports: Abdominal pain. Denies: Nausea, Vomiting, Diarrhea Genitourinary: Denies: Dysuria Musculoskeletal: Denies: Swelling, Extremity Pain Skin: Denies: Rash Neurological: Denies: Headache Hematologic: Denies: Easy bruising, Easy bleeding Allergy: Denies: Uticaria Physical Exam Vital Signs/Narrative: Vital Signs Temp Pulse Resp BP Pulse Ox 06/06/20 20:58 97.3 F L 92 18 143/97 H 94 Inital Vital Signs reviewed: Yes General: Well nourished, Well developed Head: Normocephalic ENT: Moist mucous membranes Neck: Supple Cardiovascular: Regular rate, Regular rhythm Respiratory: Wheezing, Diminished, Decreased Air Movement Abdomen: Soft, Nontender Extremities: Nontender Skin: Normal color, No rash Neurological: Alert, Oriented x3 Psychological: Normal affect Diagnostic/Tx/Re-eval Impressions Chest X-Ray 06/06/20 21:16 IMPRESSION: Degenerative changes, as described above. No demonstrated acute cardiopulmonary process. There is no major interval change. Electronically Signed: Juan Luis SinghonDO at 22:37 EDT Tel [phone], Service support , 06/06/20 21:16 Chest 1 View (Portable) [RAD] Stat Laboratory Results 06/06/20 06/06/20 21:35 21:35 WBC 5.5 RBC 3.62 L Hgb 10.4 L Hct 32.8 L MCV 90.6 MCH 28.7 MCHC 31.7 L RDW Std Deviation 56.0 H RDW Coeff of Azeem 16.8 H Plt Count 216 MPV 10.4 Immature Gran % (Auto) 0.500 Neut % (Auto) 56.7 Lymph % (Auto) 28.4 Granite % (Auto) 12.4 H Eos % (Auto) 1.8 Baso % (Auto) 0.2 Absolute Neuts (auto) 3.1 Absolute Lymphs (auto) 1.56 Nucleated RBC % 0 Sodium 142 Potassium 3.5 Chloride 106 Carbon Dioxide 30.0 Anion Gap 6 BUN 27 H Creatinine 1.75 H Estim Creat Clear Calc 34.10 Est GFR (MDRD) Af Amer 49 L Est GFR (MDRD) Non-Af 41 L BUN/Creatinine Ratio 15.4 Glucose 74 Calcium 8.6 Troponin I < 0.015 - EKG Initial EKG Interpretation: Sinus Rhythm - Sinus 83 with no acute ischemia. - Medical Decision Making Patient was given DuoNeb followed by 2 albuterol treatments. He was given IV Solu-Medrol as well as Hycodan syrup for cough control. On repeat evaluation patient states he does not feel improved. He does have better air movement on auscultation. When I entered the room to reevaluate him his O2 sat is 87% on room air with a good waveform. He is awake and talking to me maintaining his O2 sat 87%. He is placed on 3 L nasal cannula with saturations climbing to 95%. Covid swab was initially ordered as a send out, however with patient not requiring oxygen and therefore hospitalization we called the lab and asked them to run it in-house. Patient will be discussed with hospitalist. ED Disposition - Plan for ED Patient: Disposition: Acute Care Hospital [facility] Diagnosis: Bronchitis, Acute respiratory insufficiency Referrals: Jayme Yang MD [Primary Care Provider] -
[2020-06-06] MEDS: Ipratropium/Albuterol Sulfate 3 ML AMPUL.NEB INHALATION (21:30)
[2020-06-06] MEDS: Albuterol 2.5 MG/3 ML VIAL.NEB. INHALATION ×2 (21:32)
[2020-06-06 21:38] VITALS: PULSE 78; RESP 18
[2020-06-06 21:39] VITALS: BP 193/92; PULSE 78; RESP 25; TEMP 36.3; O2SAT 96
[2020-06-06 21:42] VITALS: O2SAT 96
[2020-06-06] MEDS: MethylPREDNISolone 125 MG/2 ML Vial IV (21:42)
[2020-06-06 21:47] LABS: Absolute Lymphocyte Count 1.56 X10^3/uL (0.83-4.51); Absolute Neutrophil Count 3.1 X10^3/uL (2.0-7.7); Basophil# 0.01 X10^3/uL; Basophil% 0.2 % (0-1); Eosinophils% 1.8 % (0-5); Hematocrit 32.8 % (40-54); Hemoglobin 10.4 g/dL (13.0-16.5); Lymphocyte # 1.56 X10^3/ul (4.0); Lymphocyte % 28.4 % (19-41); Mean Corp Hgb Conc 31.7 g/dL (32-36); Mean Corpuscular Hgb 28.7 pg (27.0-32.0); Mean Corpuscular Volume 90.6 fL (80-94); Mean Platelet Vol. 10.4 fl (6.2-12.0); Monocyte# 0.68 X10^3/uL; Monocyte% 12.4 % (0-10); NRBC Flagged by Analyzer 0 % (0-5); Neutrophil # 3.12 X10^3/uL (2.7-7.7); Neutrophil % 56.7 % (47-70); Platelet Count 216 K/mm3 (150-450); RBC Distribution Width CV 16.8 % (11.6-14.6); Red Blood Count 3.62 M/mm3 (4.6-6.2); White Blood Count 5.5 K/mm3 (4.4-11.0)
[2020-06-06 22:07] LABS: Anion Gap 6 (5-15); BUN 27 mg/dL (7-18); BUN/Creat Ratio 15.4 RATIO (10-20); Calcium,Total 8.6 mg/dL (8.5-10.1); Chloride 106 mmol/L (98-107); Creatinine, Serum 1.75 mg/dL (0.70-1.30); EST Glomerular Filtration Rate 41 mL/min (>60); Est Glom Filt Rate - Afr Amer 49 mL/min (>60); Glucose 74 mg/dL (74-106); Potassium 3.5 mmol/L (3.5-5.1); Sodium Level 142 mmol/L (136-145)
[2020-06-06 22:55] VITALS: O2SAT 88
[2020-06-06 22:56] VITALS: BP 164/82; PULSE 75; RESP 15; O2SAT 94
--- NOTE | 2020-06-06 23:16 | HP.PCM_ITS ---
Problem List (1) Asthma Status: Acute Qualifiers: Asthma complication type: with acute exacerbation (2) Dementia Status: Chronic (3) Asymptomatic hypertensive urgency Status: Chronic (4) Pulmonary hypertension Status: Chronic Comment: RVSP 40 mmHg (5) SUPA (obstructive sleep apnea) Status: Chronic Comment: CPAP 15 cm of water (6) DM2 (diabetes mellitus, type 2) Status: Chronic (7) Hyperlipidemia Status: Chronic Qualifiers: Hyperlipidemia type: unspecified Qualified Code(s): E78.5 - Hyperlipidemia, unspecified (8) Benign essential HTN Status: Chronic History of Present Illness Date of Admission: 06/06/20 Chief Complaint: shortness of breath The patient is a 74 year old patient who presents the emergency room with acute shortness of breath. Onset of symptoms began and have progressed since that time. He has a history of allergies and asthma/COPD, pulmonary hypertension and mild dementia. The patient admits to having mowed the lawn and started having shortness of breath symptoms after that time. He currently denies chest pain and nausea or vomiting. He does get into coughing spasms frequently with this. Since his pulse oxygenation dropped to 86% on room air and he required oxygen that he is not currently taking at home it was felt necessary to admit him for overnight observation and management of his COPD. Past Medical History Past Medical History (Chronic Problems): Chronic Problems (Last Reviewed 04/07/20 @ 11:27 by Faye Martinez PA, PA) Kidney stones (Chronic) Dementia (Chronic) Ureterolithiasis (Chronic) A-fib (Chronic) Asymptomatic hypertensive urgency (Chronic) Essential hypertension (Chronic) Pulmonary hypertension (Chronic) RVSP 40 mmHg SUPA (obstructive sleep apnea) (Chronic) CPAP 15 cm of water Diverticula of colon (Chronic) Colitis (Chronic) Atrial fibrillation with RVR (Chronic) DM2 (diabetes mellitus, type 2) (Chronic) Hyperlipidemia (Chronic) Inflammatory bowel disease (Chronic) Benign essential HTN (Chronic) Rheumatoid aortitis (Chronic) Medical History: Medical History (Last Reviewed 04/07/20 @ 11:27 by Faye Martinez PA, PA) Essential hypertension (Chronic) I10 Diverticula of colon (Chronic) K57.30 Colitis (Chronic) K52.9 Bronchitis (Acute) J40 Atrial fibrillation with RVR (Chronic) I48.91 Rhinovirus (Acute) B34.8 Severe sepsis (Acute) A41.9, R65.20 Acute respiratory insufficiency (Acute) R06.89 DM2 (diabetes mellitus, type 2) (Chronic) E11.9 Hyperlipidemia (Chronic) E78.5 Inflammatory bowel disease (Chronic) K52.9 Benign essential HTN (Chronic) I10 Rheumatoid aortitis (Chronic) I01.1 Hypertensive urgency (Resolved) I16.0 Allergies aspirin Allergy (Severe, Verified 06/06/20 21:00) Mouth swelling donepezil [From Aricept] Adverse Reaction (Severe, Verified 06/06/20 21:00) Swelling morphine Adverse Reaction (Severe, Verified 06/06/20 21:00) UNABLE TO URINATE Home Medications: Ambulatory Orders Medication Instructions Recorded Infliximab-DYYB [Inflectra] 100 mg IV .COMPLEX 02/18/17 Esomeprazole Magnesium [Nexium 20 mg PO DAILY 04/15/17 24Hr] Loratadine [Claritin] 10 mg PO QHS 04/15/17 Glimepiride [Amaryl] 2 mg PO DAILY 01/22/18 Balsalazide Disodium 750 mg PO BID 09/17/18 Multivit-Min/FA/Lycopen/Lutein 1 ea PO DAILY 09/17/18 [Centrum Silver Men Tablet] calcium carbonate-vitamin D3 600 1 tab PO DAILY 06/02/19 mg (1,500 mg)-800 unit tablet duloxetine 60 mg capsule,delayed 60 mg PO DAILY 06/02/19 release gabapentin 600 mg tablet 600 mg PO BID tab 06/02/19 metformin 1,000 mg tablet 1,000 mg PO BID tab 10/06/19 Ipratropium Chester 15 ml NS PRN PRN 01/11/20 Apixaban [Eliquis] 5 mg PO BID 03/24/20 DiphenhydrAMINE [Benadryl] 25 mg PO BID PRN PRN 03/24/20 Rosuvastatin Calcium 20 mg PO DAILY 03/24/20 potassium chloride 10 mEq 10 meq PO DAILY #30 tab 04/18/20 tablet,extended release(part/cryst) amiodarone 200 mg tablet 100 mg PO DAILY tab 05/25/20 amlodipine 10 mg tablet 10 mg PO DAILY tab 05/25/20 carvedilol 25 mg tablet 25 mg PO BID 05/25/20 furosemide 40 mg tablet 40 mg PO DAILY tab 05/25/20 hydralazine 100 mg tablet 100 mg PO TID tab 05/25/20 isosorbide mononitrate 60 mg 60 mg PO BID #60 tab 05/25/20 tablet,extended release 24 hr lisinopril 40 mg tablet 40 mg PO DAILY 05/25/20 Diltiazem HCl [Diltiazem 24Hr ER] 360 mg PO DAILY 06/06/20 Surgical History: Surgical History (Last Reviewed 04/07/20 @ 11:27 by Faye RIDER, PA) History of bilateral knee replacement (Resolved) Z96.653 History of back surgery (Resolved) Z98.890 Cervical vertebral fusion (Resolved) M43.22 History of removal of cyst (Resolved) Z98.890 Surgical History: no surgical history, noncontributory, - - Fusion of the cervical spine, lumbar spine surgery, bilateral knee replacements, partial colon resection due to diverticulitis Psychiatric History: No pertinent psych hx Lives: Spouse/ Significant Other Smoking Status: Never smoker - *Family History Maternal Family History: Family History (Last Reviewed 04/07/20 @ 11:27 by Faye RIDER, PA) Mother Heart disease Diabetes Father Heart disease Lung disease Brother Heart disease Lung disease Cancer Sister Diabetes Cancer History Items: Heart Disease Paternal Family History: Family History (Last Reviewed 04/07/20 @ 11:27 by Faye RIDER, PA) Mother Heart disease Diabetes Father Heart disease Lung disease Brother Heart disease Lung disease Cancer Sister Diabetes Cancer History Items: COPD, Heart Disease Review of Systems Constitutional: Denies: Chills, Fever, Weight Change HEENT: Denies: Head Aches, Sinus Congestion, Sinus Drainage Cardiovascular: Denies: Chest Pain, Palpitations Respiratory: Reports: Cough, Shortness of breath at rest, Wheezing. Denies: Sputum production Gastrointestinal: Denies: Abdominal Pain, Nausea, Vomiting Genitourinary: Denies: Dysuria Musculoskeletal: Denies: Joint Pain, Joint Tenderness Skin: Denies: Rash, Wounds Neurological: Denies: Numbness, Tingling, Focal weakness Psychiatric: Denies: Anxiety, Depression, Homicidal Ideations, Suicidal Ideations Hematologic/ Lymphatic: Denies: Easy Bruising, Easy Bleeding VTE Information - Inpt Only VTE Present on Admission: No VTE Mechan Device Prophylaxis: None VTE Pharm Prophylaxis ordered?: Yes Patient Problems: Active and Suspected Problems (Last Reviewed 04/07/20 @ 11:27 by Faye Martinez PA, PA) Asthma (Acute) Bronchitis (Acute) Acute respiratory insufficiency (Acute) - Physical Exam Vitals/I&O's: Vital Signs Temp Pulse Resp BP Pulse Ox 97.3 F L 75 15 164/82 H 94 06/06/20 21:39 06/06/20 22:56 06/06/20 22:56 06/06/20 22:56 06/06/20 22:56 Oxygen Flow Rate (L/min) 3 Oxygen Delivery Method Nasal Cannula Weight: 193 lb Body Mass Index (BMI) 30.2 Finger Stick Blood Glucose 151 General: Alert, Oriented x3, Cooperative HEENT: Atraumatic, Normocephalic Neck: Supple, No JVD, Negative Carotid Bruits Lungs: Diminished, Short of Breath, Wheezes Cardiovascular: Regular rate, Normal S1, Normal S2, No murmurs Abdomen: Bowel Sounds Present, Soft, Non Tender Extremities: No edema Skin: No rashes, No breakdown Musculoskeletal: No Tenderness to Palpation of Joints or Extremities Neurological: Neuro grossly intact Psych/Mental Status: Normal Affect, Appropriate Laboratory Results 06/06/20 21:35: WBC 5.5, RBC 3.62 L, Hgb 10.4 L, Hct 32.8 L, MCV 90.6, MCH 28.7, MCHC 31.7 L, RDW Std Deviation 56.0 H, RDW Coeff of Azeem 16.8 H, Plt Count 216, MPV 10.4, Immature Gran % (Auto) 0.500, Neut % (Auto) 56.7, Lymph % (Auto) 28.4, Hart % (Auto) 12.4 H, Eos % (Auto) 1.8, Baso % (Auto) 0.2, Absolute Neuts (auto) 3.1, Absolute Lymphs (auto) 1.56, Nucleated RBC % 0 06/06/20 21:35: Sodium 142, Potassium 3.5, Chloride 106, Carbon Dioxide 30.0, Anion Gap 6, BUN 27 H, Creatinine 1.75 H, Estim Creat Clear Calc 34.10, Est GFR (MDRD) Af Amer 49 L, Est GFR (MDRD) Non-Af 41 L, BUN/Creatinine Ratio 15.4, Glucose 74, Calcium 8.6, Troponin I < 0.015 06/06/20 : COVID-19 ([place]) Pending Current Medications Azithromycin 500 mg/ Dextrose 255 mls @ 250 mls/hr IV X1 ONE Stop: 06/06/20 23:55 Assessment/Plan All Active Problems (Last Reviewed 04/07/20 @ 11:27 by Faye Martinez PA, PA) Renal colic on left side (Acute) Intractable pain (Acute) Asthma (Acute) History of bilateral knee replacement (Resolved) History of back surgery (Resolved) Cervical vertebral fusion (Resolved) History of removal of cyst (Resolved) Bronchitis (Acute) Rhinovirus (Acute) Severe sepsis (Acute) Acute respiratory insufficiency (Acute) Chest tightness (Resolved) Hypertensive urgency (Resolved) Left wrist pain (Resolved) Syncopal episodes (Resolved) Ureteral calculus, right (Resolved) Chronic Problems (Last Reviewed 04/07/20 @ 11:27 by Faye Martinez PA, PA) Kidney stones (Chronic) Dementia (Chronic) Ureterolithiasis (Chronic) A-fib (Chronic) Asymptomatic hypertensive urgency (Chronic) Essential hypertension (Chronic) Pulmonary hypertension (Chronic) RVSP 40 mmHg SUPA (obstructive sleep apnea) (Chronic) CPAP 15 cm of water Diverticula of colon (Chronic) Colitis (Chronic) Atrial fibrillation with RVR (Chronic) DM2 (diabetes mellitus, type 2) (Chronic) Hyperlipidemia (Chronic) Inflammatory bowel disease (Chronic) Benign essential HTN (Chronic) Rheumatoid aortitis (Chronic) Plan 1. Shortness of breath/COPD exacerbation?admit patient for observation to [facility] medical floor provided his COVID test is negative in the emergency room. Will start Solu-Medrol 40 mg IV every 8 hours along with DuoNeb INH every 4 hours and oxygen per routine protocol. 2. Diabetes?continue home medications 3. Hyperlipidemia?continue statins 4. Hypertension?continue home medications may need PRN control 5. Obstructive sleep apnea?continue home settings for sleep CPAP 6. Dementia continue home medication 7. DVT prophylaxis?low molecular weight heparin OBSV E&M: [id number] Initial observation care L2
[2020-06-06 23:46] LABS: Probe Check PASS; Specimen Processing Control PASS
[2020-06-07] VITALS (19 sets, daily range): BP systolic 155–191; BP diastolic 72–92; PULSE 66–86; RESP 16–22; TEMP 36.5–37.3; O2SAT 93–97; BMI 30.2
[2020-06-07] MEDS: levoFLOXacin IV 500 MG/100 ML BAG 100 MG IV (01:47)
[2020-06-07] MEDS: 0.9% Saline Lock 10 ML Syringe IV ×5 (01:49→20:55)
[2020-06-07 05:38] LABS: Absolute Lymphocyte Count 0.76 X10^3/uL (0.83-4.51); Absolute Neutrophil Count 3.6 X10^3/uL (2.0-7.7); Hematocrit 30.8 % (40-54); Hemoglobin 9.8 g/dL (13.0-16.5); Lymphocyte # 0.76 X10^3/ul (4.0); Lymphocyte % 16.8 % (19-41); Mean Corp Hgb Conc 31.8 g/dL (32-36); Mean Corpuscular Hgb 28.8 pg (27.0-32.0); Mean Corpuscular Volume 90.6 fL (80-94); Mean Platelet Vol. 9.9 fl (6.2-12.0); Monocyte% 2.2 % (0-10); NRBC Flagged by Analyzer 0 % (0-5); Neutrophil # 3.64 X10^3/uL (2.7-7.7); Neutrophil % 80.6 % (47-70); POSITIVE MORPHOLOGY YES; Platelet Count 201 K/mm3 (150-450); RBC Distribution Width CV 16.7 % (11.6-14.6); RBC Distribution Width SD 55.9 fl (35.1-43.9); White Blood Count 4.5 K/mm3 (4.4-11.0)
[2020-06-07 05:41] LABS: Differential Indicated SCAN CRITERIA MET
[2020-06-07 05:51] LABS: Anion Gap 5 (5-15); BUN 26 mg/dL (7-18); BUN/Creat Ratio 15.9 RATIO (10-20); Calcium,Total 8.2 mg/dL (8.5-10.1); Chloride 103 mmol/L (98-107); Creatinine, Serum 1.64 mg/dL (0.70-1.30); EST Glomerular Filtration Rate 44 mL/min (>60); Est Glom Filt Rate - Afr Amer 53 mL/min (>60); Estimated Creatinine Clearance 36.39 ml/min; Glucose 179 mg/dL (74-106); Potassium 4.2 mmol/L (3.5-5.1); Sodium Level 140 mmol/L (136-145)
[2020-06-07 06:05] LABS: Differential Comment SCANNED
[2020-06-07] MEDS: Ipratropium/Albuterol Sulfate 3 ML AMPUL.NEB INHALATION (07:26)
--- NOTE | 2020-06-07 07:41 | PCM.PN.HOSP ---
Patient Problems: Active and Suspected Problems (Last Reviewed 04/07/20 @ 11:27 by Faye Martinez PA, PA) Asthma (Acute) Bronchitis (Acute) Acute respiratory insufficiency (Acute) Subjective: Patient seen and examined. He was admitted with a complaint of shortness of breath, and tested positive for COVID. He is currently on 3L of oxygen and saturating well. Labs and vitals reviewed. Creatinine is down around 1.64. Hemoglobin is 9.8 and WBC is 4.5. Blood pressure is elevated this morning at 189/93. Vitals/I&O's: Vital Signs Temp Pulse Resp BP Pulse Ox 98.4 F 72 19 H 189/92 H 93 06/07/20 02:30 06/07/20 07:27 06/07/20 07:26 06/07/20 02:30 06/07/20 07:26 Oxygen Flow Rate (L/min) 3 Oxygen Delivery Method Nasal Cannula Weight: 193 lb 1.999 oz Body Mass Index (BMI) 30.2 Finger Stick Blood Glucose 151 Intake and Output for Last 24 Hours 06/05/20 06/06/20 06/07/20 23:59 23:59 23:59 Intake Total 512 / 512 Output Total 400 / 400 Balance 112 / 112 General: Alert, Oriented x3, Cooperative HEENT: Atraumatic, PERRLA, EOMI, Normocephalic Oral: Moist Mucosa Neck: Supple, No JVD, Negative Carotid Bruits Lungs: Clear to auscultation, Normal air movement, - - on 3L of oxygen Cardiovascular: Regular rate, Regular Rhythm, Normal S1, Normal S2, No murmurs Abdomen: Bowel Sounds Present, Soft, Non Tender, Non-Distended, No Hepato-splenomegaly Extremities: No clubbing, No cyanosis, No edema, Capillary Refill Less than 3 Seconds Skin: No rashes, No breakdown Musculoskeletal: No Tenderness to Palpation of Joints or Extremities Lymphatic: No Cervical, Supraclavicular, or Inguinal Adenopathy Neurological: Cranial nerves II-XII grossly intact, Neuro grossly intact, Motor Exam 5/5 strength throughout Psych/Mental Status: Normal Affect, Appropriate, Alert and oriented to time, place, person, mood and affect Laboratory Results 06/06/20 21:35: WBC 5.5, RBC 3.62 L, Hgb 10.4 L, Hct 32.8 L, MCV 90.6, MCH 28.7, MCHC 31.7 L, RDW Std Deviation 56.0 H, RDW Coeff of Azeem 16.8 H, Plt Count 216, MPV 10.4, Immature Gran % (Auto) 0.500, Neut % (Auto) 56.7, Lymph % (Auto) 28.4, Vernon % (Auto) 12.4 H, Eos % (Auto) 1.8, Baso % (Auto) 0.2, Absolute Neuts (auto) 3.1, Absolute Lymphs (auto) 1.56, Nucleated RBC % 0 06/06/20 21:35: Sodium 142, Potassium 3.5, Chloride 106, Carbon Dioxide 30.0, Anion Gap 6, BUN 27 H, Creatinine 1.75 H, Estim Creat Clear Calc 34.10, Est GFR (MDRD) Af Amer 49 L, Est GFR (MDRD) Non-Af 41 L, BUN/Creatinine Ratio 15.4, Glucose 74, Calcium 8.6, Troponin I < 0.015 06/06/20 : COVID-19 ([place]) Detected 06/07/20 05:30: WBC 4.5, RBC 3.40 L, Hgb 9.8 L, Hct 30.8 L, MCV 90.6, MCH 28.8, MCHC 31.8 L, RDW Std Deviation 55.9 H, RDW Coeff of Azeem 16.7 H, Plt Count 201, MPV 9.9, Immature Gran % (Auto) 0.400, Neut % (Auto) 80.6 H, Lymph % (Auto) 16.8 L, Vernon % (Auto) 2.2, Eos % (Auto) 0.0, Baso % (Auto) 0.0, Absolute Neuts (auto) 3.6, Absolute Lymphs (auto) 0.76 L, Nucleated RBC % 0, Differential Comment SCANNED 06/07/20 05:30: Sodium 140, Potassium 4.2, Chloride 103, Carbon Dioxide 32.0, Anion Gap 5, BUN 26 H, Creatinine 1.64 H, Estim Creat Clear Calc 36.39, Est GFR (MDRD) Af Amer 53 L, Est GFR (MDRD) Non-Af 44 L, BUN/Creatinine Ratio 15.9, Glucose 179 H, Calcium 8.2 L Diagnostic Data Chest X-Ray 06/06/20 21:16 IMPRESSION: Degenerative changes, as described above. No demonstrated acute cardiopulmonary process. There is no major interval change. Electronically Signed: Juan Luis De La TorreDO at 22:37 EDT Tel [phone], Service support , Current Medications Albuterol/Ipratropium (Duoneb) 3 ml INHALATION Q4H.RT [facility] Last Admin: 06/07/20 07:26 Dose: 3 ml Documented by: Amiodarone HCl (Cordarone) 100 mg PO DAILYCM [facility] Amlodipine Besylate (Norvasc) 10 mg PO DAILY@1700 [facility] Apixaban (Eliquis) 5 mg PO BID [facility] Atorvastatin Calcium (Lipitor) 40 mg PO DAILY@2200 [facility] Balsalazide (B[facility]ide Disodium) [facility] Calcium/Vitamin D (Os-Abiel 500mg + D) 1 tablet PO DAILY [facility] Carvedilol (Coreg) [facility] Diltiazem HCl (Cardizem Cd) 360 mg PO DAILY [facility] Diphenhydramine HCl (Benadryl) 25 mg PO BID PRN PRN PRN Reason: allergic reaction Duloxetine HCl (Cymbalta) 60 mg PO DAILY [facility] Furosemide (Lasix) 40 mg PO DAILY@0800 [facility] Gabapentin (Neurontin) 600 mg PO BID [facility] Glimepiride (Amaryl) [facility] Hydralazine HCl (Apresoline) 100 mg PO TID@0800,1700,2200 [facility] Sodium Chloride () 250 mls @ 15 mls/hr IV .[id number] PRN PRN Reason: Saline Flush Last Infusion: 06/07/20 05:15 Dose: 0 mls/hr Documented by: Sodium Chloride () 250 mls @ 15 mls/hr IV .[id number] PRN PRN Reason: Additional IVPB Infusion Levofloxacin (Levaquin Iv) 250 mg in 50 mls @ 50 mls/hr IV DAILY@2200 [facility] Stop: 06/10/20 22:59 Isosorbide Mononitrate (Imdur) 60 mg PO BID JOHANNA Lisinopril (Zestril) 40 mg PO DAILY@2200 [facility] Loratadine (Claritin) 10 mg PO QHS [facility] Metformin HCl (Glucophage) 1,000 mg PO BIDCM [facility] Methylprednisolone (Solu-Medrol) 40 mg IV Q8 JOHANNA Last Admin: 06/07/20 05:28 Dose: 40 mg Documented by: Multivitamins/Minerals (Multivitamin With Minerals (Bkc)) 1 tablet PO DAILYCM [facility] Ondansetron HCl (Zofran) 4 mg IV Q8H PRN PRN PRN Reason: NAUSEA/VOMITING Pantoprazole Sodium (Protonix) 20 mg PO DAILY [facility] Potassium Chloride (K-Dur) 10 meq PO DAILYCM [facility] Sodium Chloride () 10 - 40 ml IV UD PRN PRN Reason: SALINE FLUSH Last Admin: 06/07/20 05:28 Dose: 20 ml Documented by: STROKE Vital Signs/Narrative: Vital Signs Pulse Resp Pulse Ox 06/07/20 07:27 72 06/07/20 07:26 75 19 H 93 Medical Necessity - Tobacco Use Smoking Status: Former smoker Assessment/Plan All Active Problems (Last Reviewed 04/07/20 @ 11:27 by Faye Martinez PA, PA) Renal colic on left side (Acute) Intractable pain (Acute) Asthma (Acute) History of bilateral knee replacement (Resolved) History of back surgery (Resolved) Cervical vertebral fusion (Resolved) History of removal of cyst (Resolved) Bronchitis (Acute) Rhinovirus (Acute) Severe sepsis (Acute) Acute respiratory insufficiency (Acute) Chest tightness (Resolved) Hypertensive urgency (Resolved) Left wrist pain (Resolved) Syncopal episodes (Resolved) Ureteral calculus, right (Resolved) # acute hypoxic respiratory insufficiency due to COVID 19 infection patient still on 3L of oxygen by nasal canula on IV soumedrol 40mg every 8 hours breawthing treatment with bronchodilators titrate oxygen to maintain sats >90% # Hypertension poorly controlled on carvedilol and cardizem as well as lisinopril and amlodipine IV hydralazine prn # Hyperlipidemia: on statin # Diabetes mellitus: on metformin # SUPA: on home CPAP #Dementia:stable DVT prophylaxis; lovenox Inpatient E&M: [id number] Subs Hosp L2
[2020-06-07] MEDS: BALSALAZIDE DISODIUM 750 MG CAPSULE PO ×2 (08:31→16:45)
[2020-06-07] MEDS: hydrALAZINE 50 MG Tablet 100 MG PO ×3 (08:31→20:50)
[2020-06-07] MEDS: Glimepiride 2 MG Tablet PO (08:31)
[2020-06-07] MEDS: Amiodarone 200 MG Tablet 100 MG PO (08:31)
[2020-06-07] MEDS: Carvedilol 25 MG Tablet PO ×2 (08:32→16:44)
[2020-06-07] MEDS: metFORMIN HCl 1,000 MG Tablet 1000 MG PO ×2 (08:32→16:44)
[2020-06-07] MEDS: Furosemide 40 MG Tablet PO (08:32)
[2020-06-07] MEDS: Multivitamins,Ther W-Minerals Tablet 1 TABLET PO (08:33)
[2020-06-07] MEDS: DULoxetine Hcl 60 MG Capsule PO (08:33)
[2020-06-07] MEDS: Gabapentin 600 MG Tablet PO ×2 (08:33→20:50)
[2020-06-07] MEDS: Calcium Carb/Vitamin D 1 TABLET Tablet PO (08:33)
[2020-06-07] MEDS: Isosorbide Mononitrate 60 MG Tablet PO ×2 (08:33→20:50)
[2020-06-07] MEDS: APIXABAN 5 MG TABLET PO ×2 (08:34→20:50)
[2020-06-07] MEDS: Pantoprazole Sodium 20 MG Tablet PO (08:34)
[2020-06-07] MEDS: dilTIAZem CD 180 MG Capsule 360 MG PO (08:36)
--- NOTE | 2020-06-07 12:44 | CASEMGMT ---
OCTAVIO BERMUDEZ assessment: Phone interview with patient for initial transition planning/care coordination assessment as pt is in COVID precautions. RN AIDAN introduced self and role at [facility], pt voices understanding and consents to assessment at this time. Care providers, pharmacy, and demographics verified/updated at this time. Presentation: Cough/SOB x4 days Admitting dx: SOB/COPD/COVID-19 PCP: Trey Specialists: Zoie, cardio Preferred Pharmacy: [facility] Insurance: [facility] A/B, A[employer] Prescription Benefit: [place] Living Will/HPOA: Pt states has LW/HPOA and is aware that they are not on file at [facility] at this time. Pt states his , Natasha Gimenez, is HPOA. LNOK: Natasha Gimenez, Living Arrangements: Pt states lives with in 1 story home with ramp and states no concerns at home at this time. Pt states is independent with ADL's. Pt states that his has not been tested for COVID but she is in quarantine at home at this time and has daughter/friends that can assist with supplies. Pt states no concerns with him being in quarantine once home as well. Transportation: Pt states drives self and states no transportation concerns at this time. DME/HHC: Pt states has the following DME: cane, grab bars, shower chair, and cpap thru [employer]. Pt states no need for any further DME at this time. Pt states no hx of HHC but has been to [facility] in past s/p back surgery. Pt states no concerns with going home at time of discharge. Pt is retired. Pt states does not smoke or drink ETOH. Pt states no further concerns/needs at this time. CM to follow for home oxygen qualification and any further discharge planning/needs. Advised pt to ask for CM if any further questions/concerns/needs arise, voices understanding. Pt Goal: Home Plan: Home, pending home oxygen qualification. [place] OCTAVIO BERMUDEZ
[2020-06-07] MEDS: amLODIPine 10 MG Tablet PO (14:33)
[2020-06-07] MEDS: levoFLOXacin IV 250 MG/50 ML BAG 50 MG IV (20:43)
[2020-06-07] MEDS: Atorvastatin Calcium 40 MG Tablet PO (20:50)
[2020-06-07] MEDS: Loratadine 10 MG Tablet PO (20:50)
[2020-06-07] MEDS: Lisinopril 40 MG Tablet PO (20:55)
[2020-06-08] VITALS (8 sets, daily range): BP systolic 141–170; BP diastolic 59–70; PULSE 63–73; RESP 18–20; TEMP 36.4–36.7; O2SAT 93–96
[2020-06-08] MEDS: 0.9% Saline Lock 10 ML Syringe IV ×2 (04:54→08:27)
[2020-06-08 05:13] LABS: Absolute Lymphocyte Count 1.19 X10^3/uL (0.83-4.51); Absolute Neutrophil Count 9.1 X10^3/uL (2.0-7.7); Hematocrit 28.6 % (40-54); Hemoglobin 9.1 g/dL (13.0-16.5); Lymphocyte # 1.19 X10^3/ul (4.0); Lymphocyte % 10.9 % (19-41); Mean Corp Hgb Conc 31.8 g/dL (32-36); Mean Corpuscular Hgb 28.8 pg (27.0-32.0); Mean Corpuscular Volume 90.5 fL (80-94); Mean Platelet Vol. 10.3 fl (6.2-12.0); Monocyte# 0.52 X10^3/uL; Monocyte% 4.8 % (0-10); NRBC Flagged by Analyzer 0 % (0-5); Neutrophil # 9.06 X10^3/uL (2.7-7.7); Neutrophil % 83.4 % (47-70); POSITIVE MORPHOLOGY YES; Platelet Count 213 K/mm3 (150-450); RBC Distribution Width CV 16.6 % (11.6-14.6); RBC Distribution Width SD 55.5 fl (35.1-43.9); Red Blood Count 3.16 M/mm3 (4.6-6.2); White Blood Count 10.9 K/mm3 (4.4-11.0)
[2020-06-08 05:14] LABS: Differential Indicated SCAN CRITERIA MET
[2020-06-08 05:49] LABS: Differential Comment SCANNED
[2020-06-08 06:00] LABS: Anion Gap 9 (5-15); BUN 40 mg/dL (7-18); BUN/Creat Ratio 22.7 RATIO (10-20); Calcium,Total 8.4 mg/dL (8.5-10.1); Chloride 105 mmol/L (98-107); Creatinine, Serum 1.76 mg/dL (0.70-1.30); EST Glomerular Filtration Rate 40 mL/min (>60); Est Glom Filt Rate - Afr Amer 49 mL/min (>60); Estimated Creatinine Clearance 33.91 ml/min; Glucose 156 mg/dL (74-106); Potassium 3.7 mmol/L (3.5-5.1); Sodium Level 142 mmol/L (136-145)
[2020-06-08] MEDS: Psyllium 1 PACKET PO (08:28)
[2020-06-08] MEDS: metFORMIN HCl 1,000 MG Tablet 1000 MG PO (08:28)
[2020-06-08] MEDS: APIXABAN 5 MG TABLET PO (08:29)
[2020-06-08] MEDS: dilTIAZem CD 180 MG Capsule 360 MG PO (08:29)
[2020-06-08] MEDS: Amiodarone 200 MG Tablet 100 MG PO (08:30)
[2020-06-08] MEDS: Pantoprazole Sodium 20 MG Tablet PO (08:30)
[2020-06-08] MEDS: Furosemide 40 MG Tablet PO (08:30)
[2020-06-08] MEDS: Glimepiride 2 MG Tablet PO (08:30)
[2020-06-08] MEDS: Multivitamins,Ther W-Minerals Tablet 1 TABLET PO (08:30)
[2020-06-08] MEDS: Carvedilol 25 MG Tablet PO (08:30)
[2020-06-08] MEDS: Gabapentin 600 MG Tablet PO (08:31)
[2020-06-08] MEDS: Isosorbide Mononitrate 60 MG Tablet PO (08:31)
[2020-06-08] MEDS: DULoxetine Hcl 60 MG Capsule PO (08:31)
[2020-06-08] MEDS: hydrALAZINE 50 MG Tablet 100 MG PO (08:31)
[2020-06-08] MEDS: Calcium Carb/Vitamin D 1 TABLET Tablet PO (08:32)
[2020-06-08] MEDS: BALSALAZIDE DISODIUM 750 MG CAPSULE PO (08:32)
--- NOTE | 2020-06-08 09:33 | PCM.DC ---
- Discharge Diagnoses Current Active Problems: Current Active and Chronic Problems (Last Reviewed 04/07/20 @ 11:27 by Faye RIDER, PA) A-fib (Chronic) Asthma (Acute) Bronchitis (Acute) Acute respiratory insufficiency (Acute) You will use the following diet at home:: Cardiac Your food should be the consistency of: Regular Your liquids should be the consistency of: Regular/Thin Discharge Activity: Return to Normal Activity Weight Bearing Status: Weight bearing as tolerated Call your doctor if you observe: Fever of 101 or Higher, Shortness of breath, Chest pain Instructions: What Is COPD?, Diagnosing COPD, Treatments for COPD, ED COPD Flare Additional Instructions: keep isolated for the next 12 days till June 20, for 14 days of self isolation since COVID diagnosis. Allergies/Adverse Reactions: Allergies aspirin Allergy (Severe, Verified 06/06/20 21:00) Mouth swelling donepezil [From Aricept] Adverse Reaction (Severe, Verified 06/06/20 21:00) Swelling morphine Adverse Reaction (Severe, Verified 06/06/20 21:00) UNABLE TO URINATE Medications to take at Discharge Infliximab-DYYB [Inflectra] 100 mg IV .COMPLEX 02/18/17 Esomeprazole Magnesium [Nexium 24Hr] 20 mg PO DAILY 04/15/17 Loratadine [Claritin] 10 mg PO QHS 04/15/17 Glimepiride [Amaryl] 2 mg PO DAILY 01/22/18 Balsalazide Disodium 750 mg PO BID 09/17/18 Multivit-Min/FA/Lycopen/Lutein [Centrum Silver Men Tablet] 1 ea PO DAILY 09/17/18 calcium carbonate-vitamin D3 600 mg (1,500 mg)-800 unit tablet 1 tab PO DAILY 06/02/19 duloxetine 60 mg capsule,delayed release 60 mg PO DAILY 06/02/19 gabapentin 600 mg tablet 600 mg PO BID tab 06/02/19 metformin 1,000 mg tablet 1,000 mg PO BID tab 10/06/19 Ipratropium [place] 15 ml NS PRN PRN 01/11/20 Apixaban [Eliquis] 5 mg PO BID 03/24/20 DiphenhydrAMINE [Benadryl] 25 mg PO BID PRN PRN 03/24/20 Rosuvastatin Calcium 20 mg PO DAILY 03/24/20 potassium chloride 10 mEq tablet,extended release(part/cryst) 10 meq PO DAILY #30 tab 04/18/20 amiodarone 200 mg tablet 100 mg PO DAILY tab 05/25/20 amlodipine 10 mg tablet 10 mg PO DAILY tab 05/25/20 carvedilol 25 mg tablet 25 mg PO BID 05/25/20 furosemide 40 mg tablet 40 mg PO DAILY tab 05/25/20 hydralazine 100 mg tablet 100 mg PO TID tab 05/25/20 isosorbide mononitrate 60 mg tablet,extended release 24 hr 60 mg PO BID #60 tab 05/25/20 lisinopril 40 mg tablet 40 mg PO DAILY 05/25/20 Diltiazem HCl [Diltiazem 24Hr ER (Cd)] 360 mg PO DAILY 06/06/20 predniSONE tablet 40 mg PO DAILY 5 Days #10 tab 06/08/20 The following prescriptions were given: predniSONE tablet 40 mg PO DAILY 5 Days #10 tab Transmission Status: Pending to [id number] Primary Care Physician: Jayme Yang MD [Primary Care Provider] - Please follow up with your Primary Care Physician in: 1-2 weeks Test Results: Test results from this visit will be discussed in further detail at your follow-up appointment, if applicable.
--- NOTE | 2020-06-08 10:04 | DS.PCM_ITS ---
Discharge Date and Diagnosis Date of Admission: 06/06/20 Date of Discharge: 06/08/20 - Primary Discharge Diagnosis Acute Problems: Active Problems (Last Reviewed 04/07/20 @ 11:27 by Faye RIDER, PA) Asthma (Acute) Bronchitis (Acute) Acute respiratory insufficiency (Acute) COPD exacerbation COVID 19 infection - Secondary Discharge Diagnosis Chronic Problems: Chronic Problems (Last Reviewed 04/07/20 @ 11:27 by Faye RIDER, PA) Kidney stones (Chronic) Dementia (Chronic) Ureterolithiasis (Chronic) A-fib (Chronic) Asymptomatic hypertensive urgency (Chronic) Essential hypertension (Chronic) Pulmonary hypertension (Chronic) RVSP 40 mmHg SUPA (obstructive sleep apnea) (Chronic) CPAP 15 cm of water Diverticula of colon (Chronic) Colitis (Chronic) Atrial fibrillation with RVR (Chronic) DM2 (diabetes mellitus, type 2) (Chronic) Hyperlipidemia (Chronic) Inflammatory bowel disease (Chronic) Benign essential HTN (Chronic) Rheumatoid aortitis (Chronic) Hospital Course and Treatment Imaging Results: Diagnostic Data Chest X-Ray 06/06/20 21:16 IMPRESSION: Degenerative changes, as described above. No demonstrated acute cardiopulmonary process. There is no major interval change. Electronically Signed: Juan Luis De La Torre DO at 22:37 EDT Tel [phone], Service support , Operations: None Procedures: None Summary of Care Provided: The patient is a 74 year old M with a past medical history as outlined was a dmitted through the ED on 06/06/2020 with a complaint of shortness of breath symptoms of which have started a few days prior to admission. He also had a history of allergy and asthma as well as COPD. Patient said he mowed the lawn and started having shortness of breath after that. Saturation dropped to 86% on room air he was requiring oxygen so he was admitted and managed for COPD exacerbation. COVID test done was negative so symptoms were also thought to be due to COVID-19 infection. Patient's oxygen was titrated. His symptoms subsequently resolved and he felt much better. He was placed on IV Solu-Medrol 40 mg every 8 and also put on IV levofloxacin. Patient remained stable and symptoms totally resolved. Patient did not require any oxygen and walking pulse ox was 93% on room air. He was discharged home on 06/08/2020. Patient was counseled to remain in self-isolation for for 12 more days, till June 20, 2020 to make a total of 14 days of self-isolation since his COVID diagnosis. Patient seen and examined prior to discharge. He had no complaints and felt well. Review of symptoms otherwise negative. Labs and vitals reviewed. Home medication reviewed and reconciled. O/E: Vital Signs Temp Pulse Resp BP Pulse Ox 98.1 F 70 20 H 170/70 H 95 06/08/20 10:45 06/08/20 10:45 06/08/20 10:45 06/08/20 10:45 06/08/20 10:45 [] General: Alert, Oriented x3, Cooperative HEENT: Atraumatic, PERRLA, EOMI, Normocephalic Oral: Moist Mucosa Neck: Supple, No JVD, Negative Carotid Bruits Lungs: Clear to auscultation, Normal air movement, - - on room air Cardiovascular: Regular rate, Regular Rhythm, Normal S1, Normal S2, No murmurs Abdomen: Bowel Sounds Present, Soft, Non Tender, Non-Distended, No Hepato- splenomegaly Extremities: No clubbing, No cyanosis, No edema, Capillary Refill Less than 3 Seconds Skin: No rashes, No breakdown Musculoskeletal: No Tenderness to Palpation of Joints or Extremities Lymphatic: No Cervical, Supraclavicular, or Inguinal Adenopathy Neurological: Cranial nerves II-XII grossly intact, Neuro grossly intact, Motor Exam 5/5 strength throughout Psych/Mental Status: Normal Affect, Appropriate, Alert and oriented to time, place, person, mood and affect Patient was discharged with a prescription for PT or prednisone 40 mg daily x5 days. He is follow-up with his primary care doctor within 1 week. - Physical Exam Vitals/I&O's: Vital Signs Temp Pulse Resp BP Pulse Ox 98.1 F 73 20 H 170/70 H 95 06/08/20 08:15 06/08/20 08:31 06/08/20 08:15 06/08/20 08:31 06/08/20 09:02 Oxygen Flow Rate (L/min) 1 Oxygen Delivery Method Room Air Weight: 193 lb 1.999 oz Body Mass Index (BMI) 30.2 Finger Stick Blood Glucose 151 Intake and Output for Last 24 Hours 06/06/20 06/07/20 06/08/20 23:59 23:59 23:59 Intake Total 2362 / 2362 640 / 640 Output Total 1925 / 1925 300 / 300 Balance 437 / 437 340 / 340 Laboratory Results 06/08/20 04:50: WBC 10.9, RBC 3.16 L, Hgb 9.1 L, Hct 28.6 L, MCV 90.5, MCH 28.8, MCHC 31.8 L, RDW Std Deviation 55.5 H, RDW Coeff of Azeem 16.6 H, Plt Count 213, MPV 10.3, Immature Gran % (Auto) 0.900, Neut % (Auto) 83.4 H, Lymph % (Auto) 10.9 L, [place] % (Auto) 4.8, Eos % (Auto) 0.0, Baso % (Auto) 0.0, Absolute Neuts (auto) 9.1 H, Absolute Lymphs (auto) 1.19, Nucleated RBC % 0, Differential Comment SCANNED 06/08/20 04:50: Sodium 142, Potassium 3.7, Chloride 105, Carbon Dioxide 28.0, Anion Gap 9, BUN 40 H, Creatinine 1.76 H, Estim Creat Clear Calc 33.91, Est GFR (MDRD) Af Amer 49 L, Est GFR (MDRD) Non-Af 40 L, BUN/Creatinine Ratio 22.7 H, Glucose 156 H, Calcium 8.4 L Current Medications Albuterol Sulfate (Proventil Hfa) 2 puff IH Q4HWA.RT [facility] Amiodarone [facility]) [facility] Last Admin: 06/08/20 08:30 Dose: 100 mg Documented by: Amlodipine Besylate (Norvasc) 10 mg PO DAILY@1700 [facility] Last Admin: 06/07/20 14:33 Dose: 10 mg Documented by: Apixaban (Eliquis) 5 mg PO BID [facility] Last Admin: 06/08/20 08:29 Dose: 5 mg Documented by: Atorvastatin Calcium (Lipitor) 40 mg PO DAILY@2200 [facility] Last Admin: 06/07/20 20:50 Dose: 40 mg Documented by: Balsalazide (Balsalazide Disodium) [facility] Last Admin: 06/08/20 08:32 Dose: 750 mg Documented by: Calcium/Vitamin D (Os-Abiel 500mg + D) 1 tablet PO DAILY [facility] Last Admin: 06/08/20 08:32 Dose: 1 tablet Documented by: Carvedilol (Coreg) [facility] Last Admin: 06/08/20 08:30 Dose: 25 mg Documented by: Diltiazem HCl (Cardizem Cd) 360 mg PO DAILY [facility] Last Admin: 06/08/20 08:29 Dose: 360 mg Documented by: Diphenhydramine HCl (Benadryl) 25 mg PO BID PRN PRN PRN Reason: allergic reaction Duloxetine HCl (Cymbalta) 60 mg PO DAILY [facility] Last Admin: 06/08/20 08:31 Dose: 60 mg Documented by: Furosemide (Lasix) 40 mg PO DAILY@0800 [facility] Last Admin: 06/08/20 08:30 Dose: 40 mg Documented by: Gabapentin (Neurontin) 600 mg PO BID [facility] Last Admin: 06/08/20 08:31 Dose: 600 mg Documented by: Glimepiride (Amaryl) [facility] Last Admin: 06/08/20 08:30 Dose: 2 mg Documented by: Hydralazine HCl (Apresoline) 100 mg PO TID@0800,1700,2200 [facility] Last Admin: 06/08/20 08:31 Dose: 100 mg Documented by: Sodium Chloride () 250 mls @ 15 mls/hr IV .[id number] PRN PRN Reason: Saline Flush Last Infusion: 06/07/20 05:15 Dose: 0 mls/hr Documented by: Sodium Chloride () 250 mls @ 15 mls/hr IV .[id number] PRN PRN Reason: Additional IVPB Infusion Levofloxacin (Levaquin Iv) 250 mg in 50 mls @ 50 mls/hr IV DAILY@2200 [facility] Stop: 06/10/20 22:59 Last Infusion: 06/07/20 21:43 Dose: Infused Documented by: Isosorbide Mononitrate (Imdur) 60 mg PO BID [facility] Last Admin: 06/08/20 08:31 Dose: 60 mg Documented by: Lisinopril (Zestril) 40 mg PO DAILY@2200 [facility] Last Admin: 06/07/20 20:55 Dose: 40 mg Documented by: Loratadine (Claritin) 10 mg PO QHS [facility] Last Admin: 06/07/20 20:50 Dose: 10 mg Documented by: Metformin HCl (Glucophage) [facility] Last Admin: 06/08/20 08:28 Dose: 1,000 mg Documented by: Methylprednisolone (Solu-Medrol) 40 mg IV Q8 [facility] Last Admin: 06/08/20 04:54 Dose: 40 mg Documented by: Multivitamins/Minerals (Multivitamin With Minerals (Bkc)) [facility] Last Admin: 06/08/20 08:30 Dose: 1 tablet Documented by: Ondansetron HCl (Zofran) 4 mg IV Q8H PRN PRN PRN Reason: NAUSEA/VOMITING Pantoprazole Sodium (Protonix) 20 mg PO DAILY [facility] Last Admin: 06/08/20 08:30 Dose: 20 mg Documented by: Potassium Chloride (K-Dur) [facility] meq [facility] Last Admin: 06/08/20 08:30 Dose: 10 meq Documented by: Psyllium Hydrophilic Mucilloid (Metamucil) 1 packet PO DAILY [facility] Last Admin: 06/08/20 08:28 Dose: 1 packet Documented by: Sodium Chloride () 10 - 40 ml IV UD PRN PRN Reason: SALINE FLUSH Last Admin: 06/08/20 08:27 Dose: 10 ml Documented by: Discharge Diet: Low fat/ Low Cholesterol Discharge Activity: Return to Normal Activity Weight Bearing Status: Weight bearing as tolerated Call your doctor if you observe: Fever of 101 or Higher, Shortness of breath, Chest pain Home Medications: Medications to take at Discharge Infliximab-DYYB [Inflectra] 100 mg IV .COMPLEX 02/18/17 Esomeprazole Magnesium [Nexium 24Hr] 20 mg PO DAILY 04/15/17 Loratadine [Claritin] 10 mg PO QHS 04/15/17 Glimepiride [Amaryl] 2 mg PO DAILY 01/22/18 Balsalazide Disodium 750 mg PO BID 09/17/18 Multivit-Min/FA/Lycopen/Lutein [Centrum Silver Men Tablet] 1 ea PO DAILY 09/17/18 calcium carbonate-vitamin D3 600 mg (1,500 mg)-800 unit tablet 1 tab PO DAILY 06/02/19 duloxetine 60 mg capsule,delayed release 60 mg PO DAILY 06/02/19 gabapentin 600 mg tablet 600 mg PO BID tab 06/02/19 Ipratropium [place] 15 ml NS PRN PRN 01/11/20 Apixaban [Eliquis] 5 mg PO BID 03/24/20 DiphenhydrAMINE [Benadryl] 25 mg PO BID PRN PRN 03/24/20 Rosuvastatin Calcium 20 mg PO DAILY 03/24/20 potassium chloride 10 mEq tablet,extended release(part/cryst) 10 meq PO DAILY #30 tab 04/18/20 amiodarone 200 mg tablet 100 mg PO DAILY tab 05/25/20 amlodipine 10 mg tablet 10 mg PO DAILY tab 05/25/20 carvedilol 25 mg tablet 25 mg PO BID 05/25/20 furosemide 40 mg tablet 40 mg PO DAILY tab 05/25/20 hydralazine 100 mg tablet 100 mg PO TID tab 05/25/20 isosorbide mononitrate 60 mg tablet,extended release 24 hr 60 mg PO BID #60 tab 05/25/20 lisinopril 40 mg tablet 40 mg PO DAILY 05/25/20 Diltiazem HCl [Diltiazem 24Hr ER (Cd)] 360 mg PO DAILY 06/06/20 predniSONE tablet 40 mg PO DAILY 5 Days #10 tab 06/08/20 Following Prescriptions Were Given to Patient: predniSONE tablet 40 mg PO DAILY 5 Days #10 tab Transmission Status: Received by [id number] Primary Care Physician: Jayme Yang MD [Primary Care Provider] - Please follow up with your Primary Care Physician in: 1-2 weeks Patient Instructions: What Is COPD?, Diagnosing COPD, Treatments for COPD, ED COPD Flare Disposition: Home Minutes spent on discharge:: 35 Patient Condition:: Stable Medical Necessity - Tobacco Use Smoking Status: Former smoker Meaningful Use Info Meaningful Use Diagnoses (Choose all that apply): None applicable Inpatient E&M: 68660 Disch Hosp
--- NOTE | 2020-06-09 14:03 | CASEMGMT ---
OCTAVIO DC PHONE CALL DC DATE: 06/08/2020 DC DISPOSITION: Home DC DIAGNOSIS: Asthma/Bronchitis LACE/STRATA: 08/02 F/U APPTS MADE PRIOR TO DC: No Attempted call to listed phone #. No answer, and messaging did not have name identifier. Jose VELEZN RN ACM
== END 2020-06-08 11:10 | disposition home or self-care (01) | DRG 178 ==
LOC: ED 22:56 → ICU 06-07 00:01
PROVIDERS: Admitting Provider Family Medicine; Emergency Provider Emergency Medicine; PCP Family Medicine; Referring Provider Family Medicine; Visit Provider Student in an Organized Health Care Education/Training Program
DX: U07.1 COVID-19 (principal); J44.0 Chronic obstructive pulmonary disease with (acute) lower respiratory infection; J44.1 Chronic obstructive pulmonary disease with (acute) exacerbation; I48.20 Chronic atrial fibrillation, unspecified; J20.8 Acute bronchitis due to other specified organisms; R06.89 Other abnormalities of breathing; R09.02 Hypoxemia; I10 Essential (primary) hypertension; I27.20 Pulmonary hypertension, unspecified; E11.9 Type 2 diabetes mellitus without complications; E78.5 Hyperlipidemia, unspecified; F03.90 Unspecified dementia, unspecified severity, without behavioral disturbance, psychotic disturbance, mood disturbance, and anxiety; G47.33 Obstructive sleep apnea (adult) (pediatric); K52.9 Noninfective gastroenteritis and colitis, unspecified; K57.30 Diverticulosis of large intestine without perforation or abscess without bleeding; M05.30 Rheumatoid heart disease with rheumatoid arthritis of unspecified site; Z79.01 Long term (current) use of anticoagulants; Z79.84 Long term (current) use of oral hypoglycemic drugs; Z79.899 Other long term (current) drug therapy; Z87.891 Personal history of nicotine dependence
CPT/HCPCS: 71045; 80048; 84484; 85025; 87040; 87635; 93005; 94640; 94762; 99283; C9803; J7050; A4216; U0003

== ENCOUNTER 2020-06-14 00:44 | Inpatient (IN) | payer MEDICARE, OTHER, SELFPAY ==
[2020-06-07 00:53] VITALS: BMI 30.2
[2020-06-14] VITALS (43 sets, daily range): BP systolic 95–146; BP diastolic 48–84; PULSE 56–94; RESP 12–28; TEMP 35.5–39.5; O2SAT 87–99; BMI 31.4; BMI 30.2; BMI 30.3
--- NOTE | 2020-06-14 00:54 | RAD_ITS ---
STUDY: X-RAY CHEST REASON FOR EXAM: Male, 74 years old. Fever. Cough. Weakness, confusion. Tested positive for Covid infection last week. TECHNIQUE: AP portable chest. COMPARISON: June 06, 2020. FINDINGS: Patchy airspace opacities bilaterally. No effusions. No pneumothorax. Normal size heart. Normal mediastinum and corina. Normal visualized pulmonary arteries. Normal visualized aortic arch and descending thoracic aorta. Degenerative changes of the thoracic spine. Normal visualized ribs, clavicles, and shoulders. Lower cervical fusion. There is no demonstrated abnormality of the visualized soft tissue structures of the upper abdomen. RAD/Chest 1 View (Portable) IMPRESSION: Bilateral pneumonia to include viral pneumonia. Electronically Signed: Joel Leonard MD at 2:40 EDT , Service support ,
--- NOTE | 2020-06-14 01:11 | ED.DCSUM_ITS ---
History of Present Illness Chief Complaint: Fever Informant: Patient Limited by: - - Confused Narrative: 74-year-old male presenting with hypoxia and hypoglycemia. Patient was previously admitted 06/06/2020 for similar symptoms of hypoxia. He tested positive for COVID?19. He was discharged home after his pulse ox improved. He was given quarantine precautions. Today he arrives slightly confused and hypoxic. EMS had given him an amp of D50 in route. He is awake and able to give some history however his confusion limits full history. - Past Medical History (1) Acute respiratory insufficiency Status: Chronic (2) Asthma Status: Chronic (3) Severe sepsis Status: Chronic (4) A-fib Status: Chronic Past Medical History - Allergies and Home Meds Allergies/Adverse Reactions: Allergies aspirin Allergy (Severe, Verified 06/06/20 21:00) Mouth swelling donepezil [From Aricept] Adverse Reaction (Severe, Verified 06/06/20 21:00) Swelling morphine Adverse Reaction (Severe, Verified 06/06/20 21:00) UNABLE TO URINATE Primary Care Physician: Jayme Yang MD [Primary Care Provider] - Past Medical History: - - Reviewed and problem list Surgical History: no surgical history, noncontributory, - - Fusion of the cervical spine, lumbar spine surgery, bilateral knee replacements, partial colon resection due to diverticulitis Smoking Status: Former smoker - Family History Maternal Family History: Family History (Last Reviewed 04/07/20 @ 11:27 by Faye RIDER, PA) Mother Heart disease Diabetes Father Heart disease Lung disease Brother Heart disease Lung disease Cancer Sister Diabetes Cancer Family History: Reports: Heart Disease Paternal Family History: Family History (Last Reviewed 04/07/20 @ 11:27 by Faye RIDER, PA) Mother Heart disease Diabetes Father Heart disease Lung disease Brother Heart disease Lung disease Cancer Sister Diabetes Cancer Family History: Reports: COPD, Heart Disease Review of Systems ROS: Unable to Obtain Physical Exam Vital Signs/Narrative: Vital Signs Temp Pulse Resp BP Pulse Ox 06/14/20 01:03 103.1 F H 90 26 H 139/71 H 87 06/14/20 00:45 103.1 F H 93 26 H 146/67 H 88 General: Unkempt, Acute Distress, - - Patient is tachypneic and hypoxic. Eyes: Perrl, EOMI ENT: Dry mucous membranes. Negative for: Nasal congestion Cardiovascular: Regular rate, Regular rhythm Respiratory: - - Diminished breath sounds in the bilateral bases. No wheezing is appreciated. Abdomen: Soft, Nontender Back: Nontender, Normal Inspection Extremities: Nontender, No edema Skin: Normal color, No rash. Negative for: Cyanosis, Jaundice Neurological: Alert, Cranial nerves II-XII grossly intact, Disoriented Diagnostic/Tx/Re-eval Clinical Impression(s) from Imaging Studies Chest X-Ray 06/14/20 00:54 IMPRESSION: Bilateral pneumonia to include viral pneumonia. Electronically Signed: Joel Leonard MD at 2:40 EDT , Service support , Laboratory Data 06/14/20 06/14/20 06/14/20 01:00 01:00 01:00 WBC 11.5 H RBC 3.36 L Hgb 9.6 L Hct 29.3 L MCV 87.2 MCH 28.6 MCHC 32.8 RDW Std Deviation 53.7 H RDW Coeff of Azeem 17.0 H Plt Count 162 MPV 10.8 Immature Gran % (Auto) 2.600 H Neut % (Auto) 88.0 H Lymph % (Auto) 4.7 L [place] % (Auto) 4.6 Eos % (Auto) 0.1 Baso % (Auto) 0.0 Absolute Neuts (auto) 10.1 H Absolute Lymphs (auto) 0.54 L Nucleated RBC % 0 Differential Comment SCANNED Ovalocytes RARE PT INR Specimen Type Sample Site pH Bicarbonate Actual Total CO2 Base Excess O2 Saturation O2 % ABG pCO2 ABG pO2 Jasbir Test O2 Delivery Device Sodium 137 Potassium 3.4 L Chloride 103 Carbon Dioxide 28.0 Anion Gap 6 BUN 34 H Creatinine 1.84 H Estim Creat Clear Calc 32.43 Est GFR (MDRD) Af Amer 46 L Est GFR (MDRD) Non-Af 38 L BUN/Creatinine Ratio 18.5 Glucose 73 L Lactic Acid Calcium 8.2 L Total Bilirubin 0.50 AST 60 H ALT 37 Alkaline Phosphatase 49 Lactate Dehydrogenase 396 H Troponin I 0.042 C-React Prot Ext Range 172.00 H B-Natriuretic Peptide 212.1 H Total Protein 6.8 Albumin 2.6 L Globulin 4.2 Albumin/Globulin Ratio 0.6 L Procalcitonin Urine Color Urine Clarity Urine pH Ur Specific [place] Urine Protein Urine Glucose (UA) Urine Ketones Urine Occult Blood Urine Nitrite Urine Bilirubin Urine Urobilinogen Ur Leukocyte Esterase Urine RBC Urine WBC Ur Squamous Epith Cells Urine Bacteria Urine Mucus 06/14/20 06/14/20 06/14/20 01:00 01:00 01:15 WBC RBC Hgb Hct MCV MCH MCHC RDW Std Deviation RDW Coeff of Azeem Plt Count MPV Immature Gran % (Auto) Neut % (Auto) Lymph % (Auto) [place] % (Auto) Eos % (Auto) Baso % (Auto) Absolute Neuts (auto) Absolute Lymphs (auto) Nucleated RBC % Differential Comment Ovalocytes PT 17.3 H INR 1.5 Specimen Type Sample Site pH Bicarbonate Actual Total CO2 Base Excess O2 Saturation O2 % ABG pCO2 ABG pO2 Jasbir Test O2 Delivery Device Sodium Potassium Chloride Carbon Dioxide Anion Gap BUN Creatinine Estim Creat Clear Calc Est GFR (MDRD) Af Amer Est GFR (MDRD) Non-Af BUN/Creatinine Ratio Glucose Lactic Acid 1.4 Calcium Total Bilirubin AST ALT Alkaline Phosphatase Lactate Dehydrogenase Troponin I C-React Prot Ext Range B-Natriuretic Peptide Total Protein Albumin Globulin Albumin/Globulin Ratio Procalcitonin 3.41 H Urine Color Urine Clarity Urine pH Ur Specific [place] Urine Protein Urine Glucose (UA) Urine Ketones Urine Occult Blood Urine Nitrite Urine Bilirubin Urine Urobilinogen Ur Leukocyte Esterase Urine RBC Urine WBC Ur Squamous Epith Cells Urine Bacteria Urine Mucus 06/14/20 06/14/20 01:43 02:40 WBC RBC Hgb Hct MCV MCH MCHC RDW Std Deviation RDW Coeff of Azeem Plt Count MPV Immature Gran % (Auto) Neut % (Auto) Lymph % (Auto) [place] % (Auto) Eos % (Auto) Baso % (Auto) Absolute Neuts (auto) Absolute Lymphs (auto) Nucleated RBC % Differential Comment Ovalocytes PT INR Specimen Type ART Sample Site L Radial pH 7.48 H Bicarbonate Actual 26.0 Total CO2 27 Base Excess 2 O2 Saturation 97 O2 % 60 ABG pCO2 35.0 ABG pO2 82 Jasbir Test Positive O2 Delivery Device BiPAP Sodium Potassium Chloride Carbon Dioxide Anion Gap BUN Creatinine Estim Creat Clear Calc Est GFR (MDRD) Af Amer Est GFR (MDRD) Non-Af BUN/Creatinine Ratio Glucose Lactic Acid Calcium Total Bilirubin AST ALT Alkaline Phosphatase Lactate Dehydrogenase Troponin I C-React Prot Ext Range B-Natriuretic Peptide Total Protein Albumin Globulin Albumin/Globulin Ratio Procalcitonin Urine Color Yellow Urine Clarity Sl. Cloudy Urine pH 5.0 Ur Specific [place] 1.015 Urine Protein 100 H Urine Glucose (UA) Normal Urine Ketones Negative Urine Occult Blood 25 H Urine Nitrite Negative Urine Bilirubin Negative Urine Urobilinogen Normal Ur Leukocyte Esterase Negative Urine RBC 0-5 SEEN Urine WBC 0 SEEN Ur Squamous Epith Cells 0 SEEN Urine Bacteria 2+ Urine Mucus 0 SEEN - Rhythm Strip Rhythm Strip: Sinus Rhythm Rate: 87 - EKG Initial EKG Interpretation: Sinus Rhythm, Non-Specific ST Changes Prior: Unchanged - Medical Decision Making Patient presents with confusion, hypoxia, hypoglycemia, febrile. Sepsis work-up was initiated. Patient has known COVID?19. Patient was not hypotensive or tachycardic. Patient was placed on 6 L via nasal cannula over his O2 sats were not improving. Was placed on BiPAP where he did appear to be improving. His ABG only showed his pH to be slightly elevated at 7.48. Otherwise the ABG is unremarkable. Lactic acid was normal. Lab work shows leukocytosis, acute on chronic renal dysfunction, procalcitonin of 3.41. Also has elevated inflammatory markers. Although the would expect some of the symptoms from COVID?19 with elevated procalcitonin and elevated white blood cell count I do believe he has an element of a bacterial pneumonia. Patient was started on vancomycin and Zosyn since he was recently hospitalized. Tylenol was given for fever. He has remained stable on BiPAP and he is maintaining his O2 sats. His blood sugar was again rechecked after his amp of D50 prior to arrival and it was in the 70s. He was given another amp of D50 and on recheck he was 140. This was later rechecked and it was down to 100. Patient may require more glucose while inpatient. Discussed with hospitalist will recommend admission to the ICU. Impression: 1. COVID?19 2. Hospital-acquired pneumonia 3. Severe sepsis 4. Acute on chronic renal disease 5. Hypoxia ED Disposition - Plan for ED Patient: Disposition: Home or Assisted Living Instructions: ED ALOC, ED AMPHETAMINE ABUSE Referrals: Jayme Yang MD [Primary Care Provider] -
[2020-06-14] MEDS: Acetaminophen 500 MG Tablet 1000 MG PO (01:15)
[2020-06-14] MEDS: MethylPREDNISolone 125 MG/2 ML Vial IV (01:24)
[2020-06-14] MEDS: Dextrose 50%-Water 25 GM/50 ML DISP.SYRIN IV (01:25)
[2020-06-14 01:30] LABS: Absolute Lymphocyte Count 0.54 X10^3/uL (0.83-4.51); Absolute Neutrophil Count 10.1 X10^3/uL (2.0-7.7); Eosinophil# 0.01 X10^3/uL; Eosinophils% 0.1 % (0-5); Hematocrit 29.3 % (40-54); Hemoglobin 9.6 g/dL (13.0-16.5); Lymphocyte # 0.54 X10^3/ul (4.0); Lymphocyte % 4.7 % (19-41); Mean Corp Hgb Conc 32.8 g/dL (32-36); Mean Corpuscular Hgb 28.6 pg (27.0-32.0); Mean Corpuscular Volume 87.2 fL (80-94); Mean Platelet Vol. 10.8 fl (6.2-12.0); Monocyte# 0.53 X10^3/uL; Monocyte% 4.6 % (0-10); NRBC Flagged by Analyzer 0 % (0-5); Neutrophil # 10.12 X10^3/uL (2.7-7.7); POSITIVE DIFFERENTIAL YES; Platelet Count 162 K/mm3 (150-450); RBC Distribution Width SD 53.7 fl (35.1-43.9); Red Blood Count 3.36 M/mm3 (4.6-6.2); White Blood Count 11.5 K/mm3 (4.4-11.0)
[2020-06-14 01:36] LABS: Differential Indicated SCAN CRITERIA MET
[2020-06-14 01:51] LABS: Allen Test Positive; Base Excess 2 mmol/L (-2 to +2); Blood Gas Specimen Type ART; FI02 60; O2 Delivery Device BiPAP; PO2 82 mmHG (75-100); SITE L Radial; SO2 97 % (95-99); Total Carbon Dioxide 27 mmol/L; pH 7.48 (7.35-7.45)
[2020-06-14 01:54] LABS: Procalcitonin 3.41 ng/mL (0.00-0.09)
[2020-06-14 02:00] LABS: Lactic Acid 1.4 mmol/L (0.4-1.9)
[2020-06-14 02:01] LABS: Differential Comment SCANNED; Ovalocyte RARE
[2020-06-14 02:02] LABS: BNP,B-Type NATRIURETIC PEPTIDE 212.1 pg/mL (0-100)
[2020-06-14 02:03] LABS: International Normalized Ratio 1.5; Prothrombin Time (Protime)PT. 17.3 SECONDS (11.7-14.9)
[2020-06-14 02:20] LABS: ALB/GLOB Ratio 0.6 RATIO (0.9-2.4); AST(SGOT) 60 U/L (15-37); Alanine Aminotransfer ALT/SGPT 37 U/L (16-61); Albumin, Serum 2.6 g/dL (3.2-5.0); Alkaline Phosphatase 49 U/L (45-117); Anion Gap 6 (5-15); BUN 34 mg/dL (7-18); BUN/Creat Ratio 18.5 RATIO (10-20); Calcium,Total 8.2 mg/dL (8.5-10.1); Chloride 103 mmol/L (98-107); Creatinine, Serum 1.84 mg/dL (0.70-1.30); EST Glomerular Filtration Rate 38 mL/min (>60); Est Glom Filt Rate - Afr Amer 46 mL/min (>60); Estimated Creatinine Clearance 32.43 ml/min; Globulin 4.2 g/dL (2.2-4.2); Glucose 73 mg/dL (74-106); LDH 396 U/L (87-241); Potassium 3.4 mmol/L (3.5-5.1); Protein, Total 6.8 g/dL (6.4-8.2); Sodium Level 137 mmol/L (136-145)
[2020-06-14 02:43] LABS: Mucous, Urine 0 SEEN /hpf (<or=2+); Squamous Epithelial Cells - UA 0 SEEN /hpf (0-5); White Blood Cells 0 SEEN /hpf (0-5)
[2020-06-14 02:44] LABS: Color, Urine Yellow (Yellow); Glucose, Dipstick Normal (Normal); Ketone-Dipstick Negative (Negative); Leukocyte Esterase-Dipstick Negative /ul (Negative); Nitrite-Dipstick Negative (Negative); Occult Blood-Urine 25 /ul (Negative); Protein-Dipstick 100 mg/dl (Negative); Specific Gravity, Urine 1.015 (1.002-1.030); Urine Bilirubin Dipstick Negative (Negative); Urine Clarity Sl. Cloudy (Clear); Urine Urobilinogen Normal (Normal)
[2020-06-14 02:50] LABS: Bacteria 2+ /hpf (None Seen); Red Blood Cells-Urine 0-5 SEEN /hpf (0-5)
--- NOTE | 2020-06-14 02:54 | HP.PCM_ITS ---
Problem List (1) Sepsis Status: Acute (2) COVID-19 virus infection Status: Acute (3) Kidney stones Status: Chronic (4) Dementia Status: Chronic (5) Ureterolithiasis Status: Chronic (6) A-fib Status: Chronic (7) Asthma Status: Chronic Qualifiers: Asthma complication type: with acute exacerbation (8) Severe acute respiratory syndrome coronavirus 2 (SARS-CoV-2) infection ruled out Status: Acute (9) Asymptomatic hypertensive urgency Status: Chronic (10) Essential hypertension Status: Chronic (11) Pulmonary hypertension Status: Chronic Comment: RVSP 40 mmHg (12) SUPA (obstructive sleep apnea) Status: Chronic Comment: CPAP 15 cm of water (13) Diverticula of colon Status: Chronic (14) Colitis Status: Chronic (15) Atrial fibrillation with RVR Status: Chronic (16) DM2 (diabetes mellitus, type 2) Status: Chronic (17) Hyperlipidemia Status: Chronic Qualifiers: Hyperlipidemia type: unspecified Qualified Code(s): E78.5 - Hyperlipidemia, unspecified (18) Inflammatory bowel disease Status: Chronic (19) Benign essential HTN Status: Chronic (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 Patient reports he fell and he could not get up so paramedics came to help him get up. Associated with his symptoms is a productive cough, weakness and confusion. Reportedly paramedics found that he was hypoxic with oxygen saturation in the 80s and also his blood glucose was in the 50s. Patient received D50 on the field. At emergency department his blood glucose was still low so he received another dose of D50. At emergency department patient was initially placed on 6 L/min of nasal cannula but eventually he required BiPAP to maintain appropriate oxygen saturation. Recent admission: Patient was admitted on 06/06/2020 and discharged on 06/08/2020. He was admitted for acute respiratory insufficiency; COPD exacerbation and COVID-19 infection. He received IV Solu-Medrol [id number]. Past Medical History Past Medical History (Chronic Problems): Chronic Problems (Last Reviewed 06/14/20 @ 04:[address] Pedro Ferreira MD) Kidney stones (Chronic) Dementia (Chronic) Ureterolithiasis (Chronic) A-fib (Chronic) Asthma (Chronic) Asymptomatic hypertensive urgency (Chronic) Essential hypertension (Chronic) Pulmonary hypertension (Chronic) RVSP 40 mmHg SUPA (obstructive sleep apnea) (Chronic) CPAP 15 cm of water Diverticula of colon (Chronic) Colitis (Chronic) Atrial fibrillation with RVR (Chronic) DM2 (diabetes mellitus, type 2) (Chronic) Hyperlipidemia (Chronic) Inflammatory bowel disease (Chronic) Benign essential HTN (Chronic) Rheumatoid aortitis (Chronic) Medical History: Medical History (Last Reviewed 06/14/20 @ 04:[address] Pedro Ferreira MD) Essential hypertension (Chronic) I10 Diverticula of colon (Chronic) K57.30 Colitis (Chronic) K52.9 Bronchitis (Inactive) J40 Atrial fibrillation with RVR (Chronic) I48.91 Rhinovirus (Inactive) B34.8 Severe sepsis (Inactive) A41.9, R65.20 Acute respiratory insufficiency (Inactive) R06.89 DM2 (diabetes mellitus, type 2) (Chronic) E11.9 Hyperlipidemia (Chronic) E78.5 Inflammatory bowel disease (Chronic) K52.9 Benign essential HTN (Chronic) I10 Rheumatoid aortitis (Chronic) I01.1 Hypertensive urgency (Resolved) I16.0 Allergies aspirin Allergy (Severe, Verified 06/06/20 21:00) Mouth swelling donepezil [From Aricept] Adverse Reaction (Severe, Verified 06/06/20 21:00) Swelling morphine Adverse Reaction (Severe, Verified 06/06/20 21:00) UNABLE TO URINATE Home Medications: Ambulatory Orders Medication Instructions Recorded Infliximab-DYYB [Inflectra] 100 mg IV .COMPLEX 02/18/17 Esomeprazole Magnesium [Nexium 20 mg PO DAILY 04/15/17 24Hr] Loratadine [Claritin] 10 mg PO QHS 04/15/17 Glimepiride [Amaryl] 2 mg PO DAILY 01/22/18 Balsalazide Disodium 750 mg PO BID 09/17/18 Multivit-Min/FA/Lycopen/Lutein 1 ea PO DAILY 09/17/18 [Centrum Silver Men Tablet] calcium carbonate-vitamin D3 600 1 tab PO DAILY 06/02/19 mg (1,500 mg)-800 unit tablet duloxetine 60 mg capsule,delayed 60 mg PO DAILY 06/02/19 release gabapentin 600 mg tablet 600 mg PO BID tab 06/02/19 Ipratropium [place] 15 ml NS PRN PRN 01/11/20 Apixaban [Eliquis] 5 mg PO BID 03/24/20 DiphenhydrAMINE [Benadryl] 25 mg PO BID PRN PRN 03/24/20 Rosuvastatin Calcium 20 mg PO DAILY 03/24/20 potassium chloride 10 mEq 10 meq PO DAILY #30 tab 04/18/20 tablet,extended release(part/cryst) amiodarone 200 mg tablet 100 mg PO DAILY tab 05/25/20 amlodipine 10 mg tablet 10 mg PO DAILY tab 05/25/20 carvedilol 25 mg tablet 25 mg PO BID 05/25/20 furosemide 40 mg tablet 40 mg PO DAILY tab 05/25/20 hydralazine 100 mg tablet 100 mg PO TID tab 05/25/20 isosorbide mononitrate 60 mg 60 mg PO BID #60 tab 05/25/20 tablet,extended release 24 hr lisinopril 40 mg tablet 40 mg PO DAILY 05/25/20 Diltiazem HCl [Diltiazem 24Hr ER 360 mg PO DAILY 06/06/20 (Cd)] Surgical History: Surgical History (Last Reviewed 06/14/20 @ 04:[address] Pedro Ferreira MD) History of bilateral knee replacement (Inactive) Z96.653 History of back surgery (Inactive) Z98.890 Cervical vertebral fusion (Inactive) M43.22 History of removal of cyst (Inactive) Z98.890 Surgical History: - - Fusion of the cervical spine, lumbar spine surgery, bilateral knee replacements, partial colon resection due to diverticulitis Psychiatric History: No pertinent psych hx Smoking Status: Former smoker - *Family History Maternal Family History: Family History (Last Reviewed 06/14/20 @ 04:[address] Pedro Ferreira MD) Mother Heart disease Diabetes Father Heart disease Lung disease Brother Heart disease Lung disease Cancer Sister Diabetes Cancer History Items: Heart Disease Paternal Family History: Family History (Last Reviewed 06/14/20 @ 04:[address] Pedro Ferreira MD) Mother Heart disease Diabetes Father Heart disease Lung disease Brother Heart disease Lung disease Cancer Sister Diabetes Cancer History Items: COPD, Heart Disease Review of Systems Unable to obtain accurate/complete ROS d/t: Patient on BiPAP. VTE Information - Inpt Only VTE Present on Admission: No VTE Mechan Device Prophylaxis: None VTE Pharm Prophylaxis ordered?: No Reason prophylaxis not ordered:: Treatment Not Indicated - Patient on Eliquis for A. fib, Eliquis continued. Patient Problems: Active and Suspected Problems (Last Reviewed 06/14/20 @ 04:[address] Pedro Ferreira MD) Sepsis (Acute) Severe acute respiratory syndrome coronavirus 2 (SARS-CoV-2) infection ruled out (Acute) COVID-19 virus infection (Acute) - Physical Exam Vitals/I&O's: Vital Signs Temp Pulse Resp BP Pulse Ox 99.7 F H 76 23 H 124/63 H 96 06/14/20 02:45 06/14/20 02:45 06/14/20 02:45 06/14/20 02:45 06/14/20 02:45 Oxygen Flow Rate (L/min) 15 Oxygen Delivery Method Room Air Weight: 91 kg Body Mass Index (BMI) 31.4 Finger Stick Blood Glucose 104 Intake and Output for Last 24 Hours 06/12/20 06/13/20 06/14/20 23:59 23:59 23:59 Intake Total 250 / 250 Balance 250 / 250 General: Alert, Oriented x3, Cooperative HEENT: Atraumatic, PERRLA, EOMI, Normocephalic Neck: Supple, No JVD, Negative Carotid Bruits Lungs: Rales, Rhonchi, Tachypneic Cardiovascular: Regular rate, Normal S1, Normal S2, No murmurs Abdomen: Bowel Sounds Present, Soft, Non Tender Extremities: No edema, Capillary Refill Less than 3 Seconds Skin: No rashes, No breakdown Musculoskeletal: No Tenderness to Palpation of Joints or Extremities Neurological: Cranial nerves II-XII grossly intact Psych/Mental Status: Normal Affect, Appropriate Laboratory Results 06/14/20 01:00: Sodium 137, Potassium 3.4 L, Chloride 103, Carbon Dioxide 28.0, Anion Gap 6, BUN 34 H, Creatinine 1.84 H, Estim Creat Clear Calc 32.43, Est GFR (MDRD) Af Amer 46 L, Est GFR (MDRD) Non-Af 38 L, BUN/Creatinine Ratio 18.5, Glucose 73 L, Calcium 8.2 L, Total Bilirubin 0.50, AST 60 H, ALT 37, Alkaline Phosphatase 49, Lactate Dehydrogenase 396 H, Troponin I 0.042, C-React Prot Ext Range 172.00 H, Total Protein 6.8, Albumin 2.6 L, Globulin 4.2, Albumin/Globulin Ratio 0.6 L 06/14/20 01:00: B-Natriuretic Peptide 212.1 H 06/14/20 01:00: WBC 11.5 H, RBC 3.36 L, Hgb 9.6 L, Hct 29.3 L, MCV 87.2, MCH 28.6, MCHC 32.8, RDW Std Deviation 53.7 H, RDW Coeff of Azeem 17.0 H, Plt Count 162, MPV 10.8, Immature Gran % (Auto) 2.600 H, Neut % (Auto) 88.0 H, Lymph % (Auto) 4.7 L, [place] % (Auto) 4.6, Eos % (Auto) 0.1, Baso % (Auto) 0.0, Absolute Neuts (auto) 10.1 H, Absolute Lymphs (auto) 0.54 L, Nucleated RBC % 0, Differential Comment SCANNED, Ovalocytes RARE 06/14/20 01:00: Lactic Acid 1.4 06/14/20 01:00: PT 17.3 H, INR 1.5 06/14/20 01:15: Procalcitonin 3.41 H 06/14/20 01:43: Specimen Type ART, Sample Site L Radial, pH 7.48 H, Bicarbonate Actual 26.0, Total CO2 27, Base Excess 2, O2 Saturation 97, O2 % 60, ABG pCO2 35.0, ABG pO2 82, Jasbir Test Positive, O2 Delivery Device BiPAP 06/14/20 02:40: Urine Color Yellow, Urine Clarity Sl. Cloudy, Urine pH 5.0, Ur Specific [place] 1.015, Urine Protein 100 H, Urine Glucose (UA) Normal, Urine Ketones Negative, Urine Occult Blood 25 H, Urine Nitrite Negative, Urine Bilirubin Negative, Urine Urobilinogen Normal, Ur Leukocyte Esterase Negative, Urine RBC 0-5 SEEN, Urine WBC 0 SEEN, Ur Squamous Epith Cells 0 SEEN, Urine Bacteria 2+, Urine Mucus 0 SEEN Current Medications Piperacillin Sod/Tazobactam (Sod 3.375 gm/ Sodium Chloride) 50 mls @ 100 mls/hr IV X1 ONE Stop: 06/14/20 03:14 Vancomycin HCl 1,250 mg/ (Sodium Chloride) 275 mls @ 250 mls/hr IV X1 ONE Stop: 06/14/20 03:55 Assessment/Plan All Active Problems (Last Reviewed 06/14/20 @ 04:[address] Pedro Ferreira MD) Sepsis (Acute) Severe acute respiratory syndrome coronavirus 2 (SARS-CoV-2) infection ruled out (Acute) COVID-19 virus infection (Acute) Chest tightness (Resolved) Hypertensive urgency (Resolved) Left wrist pain (Resolved) Syncopal episodes (Resolved) Ureteral calculus, right (Resolved) The patient is a 74 year old M with a significant history of inflammatory bowel disease; atrial fibrillation; essential hypertension and diabetes mellitus and diabetes mellitus who presents emergency department with shortness of breath; fall; productive cough; hypoglycemia; and was found to have fever; tachypnea; elevated procalcitonin and worsening chest x-ray finding of bilateral infiltrates in the setting of recent positive Covid test. SARS COVID 19 INFECTION Review of old records shows that on 06/06/2020 patient tested positive for covid T-max of 103.1 Fahrenheit at emergency department Review of chest x-ray shows bilateral infiltrates. Will start patient on dexamethasone IV. BiPAP was started emergency department; continued DuoNeb PRN. Tylenol as needed. Chief Commercial Officer and infectious disease consults. Sepsis secondary to pneumonia. Temperature of 103.1 Fahrenheit; respiratory rate of more than 20. Chest x-ray finding of bilateral infiltrates with elevated procalcitonin. Likely gram-positive or gram-negative. Patient with elevated procalcitonin Chest x-ray with bilateral infiltrates not present on chest x-ray 06/06/2020. Vancomycin and Zosyn ordered at emergency department and continued. Pharmacy to dose vancomycin. MRSA nasal screen ordered. Pneumonia and Legionella antigen test. Sputum Gram stain and culture. Mucinex ordered. Blood cultures ordered emergency department; follow. Trend CMP. Acute hypoxemic respiratory failure Patient requiring BiPAP for appropriate oxygenation. BiPAP continued. Likely secondary to COVID-19 infection with superimposed bacterial pneumonia. While on BiPAP keep n.p.o. except meds with sips of water. CKD stage III Stable Hypoglycemia likely secondary to sepsis and Amaryl use. Hold Amaryl. Accu-Chek every 4 hours. D10 in half-normal saline with 10 mEq of potassium going at 40 mL's per hour. Hypokalemia Potassium supplementation as above Home potassium continue. A. fib with RVR Eliquis continued. Cardizem and carvedilol continued Amiodarone continued. Acute cystitis Patient with a +2 urine bacteria but negative leukocyte Estrace; and negative urine nitrites. Zosyn as above Urine culture ordered at emergency department, follow Heart failure with preserved ejection fraction Chronic Echocardiogram on 02/02/2020 showed stage II diastolic dysfunction. Right ventricular systolic pressure was 40 mmHg; mild pulmonary hypertension. Home Lasix continued. His symptom is likely secondary to infection especially as his white count is elevated and he has fever. Hypertension Blood pressure is stable Amlodipine, carvedilol, Cardizem, hydralazine, Imdur and Lasix continued. Parameters placed. Trend blood pressure monitor blood pressure medications as necessary. Neuropathy: Gabapentin continued. DVT Prophylaxis Not indicated since patient is on Eliquis for A. fib. Eliquis continued. Inpatient E&M: 26691 Init Hosp L3
--- NOTE | 2020-06-14 03:34 | CPS ---
Pt.'s FiO2 decreased to 50%; successful alveolar recruitment
[2020-06-14 04:06] LABS: Bedside Glucose 148 mg/dL (70-110)
[2020-06-14 04:06] LABS: Bedside Glucose 66 mg/dL (70-110)
[2020-06-14 04:06] LABS: Bedside Glucose 104 mg/dL (70-110)
--- NOTE | 2020-06-14 04:14 | PCM.RX.CS ---
Consult Pharmacy has been consulted to manage selected antiobiotic: Vancomycin Type of Consult: New start Labs: Sodium 137 mmol/L (136-145) 06/14/20 01:00 Potassium 3.4 mmol/L (3.5-5.1) L 06/14/20 01:00 Chloride 103 mmol/L (98-107) 06/14/20 01:00 Carbon Dioxide 28.0 mmol/L (21.0-32.0) 06/14/20 01:00 Anion Gap 6 (5-15) 06/14/20 01:00 BUN 34 mg/dL (7-18) H 06/14/20 01:00 Creatinine 1.84 mg/dL (0.70-1.30) H 06/14/20 01:00 Est GFR (MDRD) Af Amer 46 mL/min (>60) L 06/14/20 01:00 Est GFR (MDRD) Non-Af 38 mL/min (>60) L 06/14/20 01:00 BUN/Creatinine Ratio 18.5 RATIO (10-20) 06/14/20 01:00 Glucose 73 mg/dL (74-106) L 06/14/20 01:00 Weight used for dosin kg Estimated Creatinine Clearance: 37.3 Goal Trough: 15-20 mcg/mL Pharmacy Plan for Drug Dosing: Pharmacy Service will continue to monitor and adjust dosing as required. Medications Vancomycin HCl 1,250 mg/ (Sodium Chloride) 275 mls @ 167 mls/hr IV Q24H JOHANNA Discontinued Medications Vancomycin HCl 1,250 mg/ (Sodium Chloride) 275 mls @ 250 mls/hr IV X1 ONE Stop: 06/14/20 03:55 Last Admin: 06/14/20 04:06 Dose: 250 mls/hr Documented by: Follow-Up Labs: Trough Vancomycin Labs to be done on [date and time ordered]: 06/16 @ 0337
[2020-06-14 04:35] LABS: Absolute Lymphocyte Count 0.35 X10^3/uL (0.83-4.51); Absolute Neutrophil Count 11.1 X10^3/uL (2.0-7.7); Hematocrit 26.9 % (40-54); Hemoglobin 8.8 g/dL (13.0-16.5); Lymphocyte # 0.35 X10^3/ul (4.0); Lymphocyte % 2.9 % (19-41); Mean Corp Hgb Conc 32.7 g/dL (32-36); Mean Corpuscular Hgb 28.6 pg (27.0-32.0); Mean Corpuscular Volume 87.3 fL (80-94); Mean Platelet Vol. 10.5 fl (6.2-12.0); Monocyte# 0.34 X10^3/uL; Monocyte% 2.8 % (0-10); NRBC Flagged by Analyzer 0 % (0-5); Neutrophil # 11.09 X10^3/uL (2.7-7.7); POSITIVE DIFFERENTIAL YES; POSITIVE MORPHOLOGY YES; Platelet Count 148 K/mm3 (150-450); RBC Distribution Width SD 54.5 fl (35.1-43.9); Red Blood Count 3.08 M/mm3 (4.6-6.2); White Blood Count 12.2 K/mm3 (4.4-11.0)
[2020-06-14 04:37] LABS: Differential Indicated SCAN CRITERIA MET
[2020-06-14 04:51] LABS: ALB/GLOB Ratio 0.6 RATIO (0.9-2.4); AST(SGOT) 59 U/L (15-37); Alanine Aminotransfer ALT/SGPT 36 U/L (16-61); Albumin, Serum 2.5 g/dL (3.2-5.0); Alkaline Phosphatase 46 U/L (45-117); Anion Gap 6 (5-15); BUN 33 mg/dL (7-18); BUN/Creat Ratio 17.6 RATIO (10-20); Calcium,Total 8.3 mg/dL (8.5-10.1); Chloride 101 mmol/L (98-107); Creatinine, Serum 1.87 mg/dL (0.70-1.30); EST Glomerular Filtration Rate 38 mL/min (>60); Est Glom Filt Rate - Afr Amer 45 mL/min (>60); Estimated Creatinine Clearance 31.91 ml/min; Globulin 4.1 g/dL (2.2-4.2); Glucose 87 mg/dL (74-106); Potassium 3.5 mmol/L (3.5-5.1); Protein, Total 6.6 g/dL (6.4-8.2); Sodium Level 137 mmol/L (136-145)
[2020-06-14] MEDS: dexAMETHasone 10 MG/ML Vial 6 MG IV (04:51)
[2020-06-14] MEDS: 0.9% Saline Lock 10 ML Syringe IV ×2 (04:52→21:26)
[2020-06-14 05:05] LABS: Bedside Glucose 90 mg/dL (70-110)
[2020-06-14 05:31] LABS: Differential Comment SCANNED
[2020-06-14 05:32] LABS: Ovalocyte RARE
[2020-06-14 06:18] LABS: M R Staph aureus DNA By PCR Negative (Negative); Probe Check PASS; Specimen Processing Control PASS
--- NOTE | 2020-06-14 06:38 | CON.PCM_ITS ---
Problem List (1) Dementia Status: Chronic (2) Ureterolithiasis Status: Chronic (3) A-fib Status: Chronic (4) Asthma Status: Chronic Qualifiers: Asthma complication type: with acute exacerbation (5) Sepsis Status: Acute (6) Severe acute respiratory syndrome coronavirus 2 (SARS-CoV-2) infection ruled out Status: Acute (7) Essential hypertension Status: Chronic (8) Pulmonary hypertension Status: Chronic Comment: RVSP 40 mmHg (9) SUPA (obstructive sleep apnea) Status: Chronic Comment: CPAP 15 cm of water (10) History of bilateral knee replacement Status: Inactive (11) History of back surgery Status: Inactive (12) Severe sepsis Status: Inactive (13) DM2 (diabetes mellitus, type 2) Status: Chronic (14) Hyperlipidemia Status: Chronic Qualifiers: Hyperlipidemia type: unspecified Qualified Code(s): E78.5 - Hyperlipidemia, unspecified (15) Inflammatory bowel disease Status: Chronic (16) Benign essential HTN Status: Chronic (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 Patient was admitted at [facility] last week and diagnosed with COVID-19. Patient was sent home for medical management. Patient presents back to the hospital after calling EMS when he had fallen and could not get up. Patient had reported a productive cough, weakness and confusion. Paramedics reportedly found the patient to be hypoxic with saturations in the 80s and blood sugars in the 50s. Patient ended up receiving 2 A of D50 secondary to hypoglycemia. Patient was initially placed on 6 L nasal cannula, but eventually required BiPAP to maintain appropriate saturations. In the ER, patient was noted to be confused, hypoxic, hypoglycemic and febrile. Patient was not hypotensive, but did require over 6 L nasal cannula to maintain saturations. ABG was relatively stable at that time. Laboratory work-up showed a leukocytosis, elevated BUN and CRP. Patient also had a drop in hemoglobin and an elevated procalcitonin. Patient was admitted to the intensive care unit for further evaluation. Since being in the intensive care unit, patient has been relatively BiPAP dependent. Patient is denying any pain and feels that he is improved compared to previous. Patient denies any current nausea, vomiting or diarrhea. Patient is a very poor historian and unable to provide any information on how long he was in the house unable to get help. Review of systems somewhat limited secondary to patient cooperation. Past Medical History Past Medical History (Chronic Problems): Chronic Problems (Last Reviewed 06/14/20 @ 04:[address] Pedro Ferreira MD) Kidney stones (Chronic) Dementia (Chronic) Ureterolithiasis (Chronic) A-fib (Chronic) Asthma (Chronic) Asymptomatic hypertensive urgency (Chronic) Essential hypertension (Chronic) Pulmonary hypertension (Chronic) RVSP 40 mmHg SUPA (obstructive sleep apnea) (Chronic) CPAP 15 cm of water Diverticula of colon (Chronic) Colitis (Chronic) Atrial fibrillation with RVR (Chronic) DM2 (diabetes mellitus, type 2) (Chronic) Hyperlipidemia (Chronic) Inflammatory bowel disease (Chronic) Benign essential HTN (Chronic) Rheumatoid aortitis (Chronic) Medical History: Medical History (Last Reviewed 06/14/20 @ 04:[address] Pedro Ferreira MD) Essential hypertension (Chronic) I10 Diverticula of colon (Chronic) K57.30 Colitis (Chronic) K52.9 Bronchitis (Inactive) J40 Atrial fibrillation with RVR (Chronic) I48.91 Rhinovirus (Inactive) B34.8 Severe sepsis (Inactive) A41.9, R65.20 Acute respiratory insufficiency (Inactive) R06.89 DM2 (diabetes mellitus, type 2) (Chronic) E11.9 Hyperlipidemia (Chronic) E78.5 Inflammatory bowel disease (Chronic) K52.9 Benign essential HTN (Chronic) I10 Rheumatoid aortitis (Chronic) I01.1 Hypertensive urgency (Resolved) I16.0 Allergies aspirin Allergy (Severe, Verified 06/06/20 21:00) Mouth swelling donepezil [From Aricept] Adverse Reaction (Severe, Verified 06/06/20 21:00) Swelling morphine Adverse Reaction (Severe, Verified 06/06/20 21:00) UNABLE TO URINATE Home Medications: Ambulatory Orders Medication Instructions Recorded Infliximab-DYYB [Inflectra] 100 mg IV .COMPLEX 02/18/17 Esomeprazole Magnesium [Nexium 20 mg PO DAILY 04/15/17 24Hr] Loratadine [Claritin] 10 mg PO QHS 04/15/17 Glimepiride [Amaryl] 2 mg PO DAILY 01/22/18 Balsalazide Disodium 750 mg PO BID 09/17/18 Multivit-Min/FA/Lycopen/Lutein 1 ea PO DAILY 09/17/18 [Centrum Silver Men Tablet] calcium carbonate-vitamin D3 600 1 tab PO DAILY 06/02/19 mg (1,500 mg)-800 unit tablet duloxetine 60 mg capsule,delayed 60 mg PO DAILY 06/02/19 release gabapentin 600 mg tablet 600 mg PO BID tab 06/02/19 Ipratropium [place] 15 ml NS PRN PRN 01/11/20 Apixaban [Eliquis] 5 mg PO BID 03/24/20 DiphenhydrAMINE [Benadryl] 25 mg PO BID PRN PRN 03/24/20 Rosuvastatin Calcium 20 mg PO DAILY 03/24/20 potassium chloride 10 mEq 10 meq PO DAILY #30 tab 04/18/20 tablet,extended release(part/cryst) amiodarone 200 mg tablet 100 mg PO DAILY tab 05/25/20 amlodipine 10 mg tablet 10 mg PO DAILY tab 05/25/20 carvedilol 25 mg tablet 25 mg PO BID 05/25/20 furosemide 40 mg tablet 40 mg PO DAILY tab 05/25/20 hydralazine 100 mg tablet 100 mg PO TID tab 05/25/20 isosorbide mononitrate 60 mg 60 mg PO BID #60 tab 05/25/20 tablet,extended release 24 hr lisinopril 40 mg tablet 40 mg PO DAILY 05/25/20 Diltiazem HCl [Diltiazem 24Hr ER 360 mg PO DAILY 06/06/20 (Cd)] Surgical History: Surgical History (Last Reviewed 06/14/20 @ 04:[address] Pedro Ferreira MD) History of bilateral knee replacement (Inactive) Z96.653 History of back surgery (Inactive) Z98.890 Cervical vertebral fusion (Inactive) M43.22 History of removal of cyst (Inactive) Z98.890 Surgical History: - - Fusion of the cervical spine, lumbar spine surgery, bilateral knee replacements, partial colon resection due to diverticulitis Psychiatric History: No pertinent psych hx Smoking Status: Former smoker - *Family History Maternal Family History: Family History (Last Reviewed 06/14/20 @ 04:[address] Pedro Ferreira MD) Mother Heart disease Diabetes Father Heart disease Lung disease Brother Heart disease Lung disease Cancer Sister Diabetes Cancer History Items: Heart Disease Paternal Family History: Family History (Last Reviewed 06/14/20 @ 04:[address] Pedro Ferreira MD) Mother Heart disease Diabetes Father Heart disease Lung disease Brother Heart disease Lung disease Cancer Sister Diabetes Cancer History Items: COPD, Heart Disease Review of Systems Comment: See HPI Patient Problems: Active and Suspected Problems (Last Reviewed 06/14/20 @ 04:[address] Pedro Ferreira MD) Sepsis (Acute) Severe acute respiratory syndrome coronavirus 2 (SARS-CoV-2) infection ruled out (Acute) COVID-19 virus infection (Acute) Objective: Chest x-ray was personally reviewed and shows bilateral infiltrates. Patient does have SUPA and is compliant with 13 cm of water. Previous PFT shows relative normal pulmonary function testing. Last echocardiogram was completed in January showing an EF of 65% with stage II diastolic dysfunction and a right ventricular systolic pressure of 40 mmHg. - Physical Exam Vitals/I&O's: Vital Signs Temp Pulse Resp BP Pulse Ox 35.9 C L 57 L 15 111/65 99 06/14/20 04:22 06/14/20 06:00 06/14/20 06:00 06/14/20 06:00 06/14/20 06:00 Oxygen Flow Rate (L/min) 15 Oxygen Delivery Method Bi-pap Weight: 87.7 kg Body Mass Index (BMI) 30.2 Finger Stick Blood Glucose 104 Intake and Output for Last 24 Hours 06/12/20 06/13/20 06/14/20 23:59 23:59 23:59 Intake Total 621 / 621 Output Total 0 / 0 Balance 621 / 621 General: Alert, Oriented x3, Cooperative - Intermittently, - - Good BiPAP synchrony noted. HEENT: Atraumatic, PERRLA, EOMI, Normocephalic, - - Slight scleral injection without icterus Oral: Moist Mucosa, No Gingival or Mucosal Lesions/ Ulcerations Neck: Supple, No JVD, No Nodes, Trachea Midline Lungs: Diminished, Rhonchi - Bilateral Cardiovascular: Regular rate, Regular Rhythm, Normal S1, Normal S2, No murmurs, No rub noted, No Gallop Abdomen: Bowel Sounds Present, Soft, Non Tender, Non-Distended Extremities: No clubbing, No cyanosis, No edema Skin: No rashes, No breakdown Musculoskeletal: No Tenderness to Palpation of Joints or Extremities Lymphatic: No Cervical, Supraclavicular, or Inguinal Adenopathy Neurological: Cranial nerves II-XII grossly intact, Neuro grossly intact, Motor Exam 5/5 strength throughout Psych/Mental Status: Appropriate, Flat Affect Microbiology Past 72 Hours 06/14/20 02:40 Urine Catheter - Castellano Legionella Antigen - Final 06/14/20 02:40 Urine Catheter - Castellano Streptococcus pneumoniae Antigen (M - Final Laboratory Results 06/14/20 01:00: Sodium 137, Potassium 3.4 L, Chloride 103, Carbon Dioxide 28.0, Anion Gap 6, BUN 34 H, Creatinine 1.84 H, Estim Creat Clear Calc 32.43, Est GFR (MDRD) Af Amer 46 L, Est GFR (MDRD) Non-Af 38 L, BUN/Creatinine Ratio 18.5, Glucose 73 L, Calcium 8.2 L, Total Bilirubin 0.50, AST 60 H, ALT 37, Alkaline Phosphatase 49, Lactate Dehydrogenase 396 H, Troponin I 0.042, C-React Prot Ext Range 172.00 H, Total Protein 6.8, Albumin 2.6 L, Globulin 4.2, Albumin/Globulin Ratio 0.6 L 06/14/20 01:00: B-Natriuretic Peptide 212.1 H 06/14/20 01:00: WBC 11.5 H, RBC 3.36 L, Hgb 9.6 L, Hct 29.3 L, MCV 87.2, MCH 28.6, MCHC 32.8, RDW Std Deviation 53.7 H, RDW Coeff of Azeem 17.0 H, Plt Count 162, MPV 10.8, Immature Gran % (Auto) 2.600 H, Neut % (Auto) 88.0 H, Lymph % (Auto) 4.7 L, [place] % (Auto) 4.6, Eos % (Auto) 0.1, Baso % (Auto) 0.0, Absolute Neuts (auto) 10.1 H, Absolute Lymphs (auto) 0.54 L, Nucleated RBC % 0, Differential Comment SCANNED, Ovalocytes RARE 06/14/20 01:00: Lactic Acid 1.4 06/14/20 01:00: PT 17.3 H, INR 1.5 06/14/20 01:15: Procalcitonin 3.41 H 06/14/20 01:19: POC Glucose 66 L 06/14/20 01:43: Specimen Type ART, Sample Site L Radial, pH 7.48 H, Bicarbonate Actual 26.0, Total CO2 27, Base Excess 2, O2 Saturation 97, O2 % 60, ABG pCO2 35.0, ABG pO2 82, Jasbir Test Positive, O2 Delivery Device BiPAP 06/14/20 01:43: POC Glucose 148 H 06/14/20 02:26: POC Glucose 104 06/14/20 02:40: Urine Color Yellow, Urine Clarity Sl. Cloudy, Urine pH 5.0, Ur Specific [place] 1.015, Urine Protein 100 H, Urine Glucose (UA) Normal, Urine Ketones Negative, Urine Occult Blood 25 H, Urine Nitrite Negative, Urine Bilirubin Negative, Urine Urobilinogen Normal, Ur Leukocyte Esterase Negative, Urine RBC 0-5 SEEN, Urine WBC 0 SEEN, Ur Squamous Epith Cells 0 SEEN, Urine Bacteria 2+, Urine Mucus 0 SEEN 06/14/20 04:20: WBC 12.2 H, RBC 3.08 L, Hgb 8.8 L, Hct 26.9 L, MCV 87.3, MCH 28.6, MCHC 32.7, RDW Std Deviation 54.5 H, RDW Coeff of Azeem 17.0 H, Plt Count 148 L, MPV 10.5, Immature Gran % (Auto) 3.300 H, Neut % (Auto) 91.0 H, Lymph % (Auto) 2.9 L, [place] % (Auto) 2.8, Eos % (Auto) 0.0, Baso % (Auto) 0.0, Absolute Neuts (auto) 11.1 H, Absolute Lymphs (auto) 0.35 L, Nucleated RBC % 0, Differential Comment SCANNED, Ovalocytes RARE 06/14/20 04:20: Sodium 137, Potassium 3.5, Chloride 101, Carbon Dioxide 30.0, Anion Gap 6, BUN 33 H, Creatinine 1.87 H, Estim Creat Clear Calc 31.91, Est GFR (MDRD) Af Amer 45 L, Est GFR (MDRD) Non-Af 38 L, BUN/Creatinine Ratio 17.6, Glucose 87, Calcium 8.3 L, Total Bilirubin 0.60, AST 59 H, ALT 36, Alkaline Phosphatase 46, Total Protein 6.6, Albumin 2.5 L, Globulin 4.1, Albumin/Globulin Ratio 0.6 L 06/14/20 04:20: MRSA (PCR) Negative 06/14/20 04:46: POC Glucose 90 Current Medications Acetaminophen (Tylenol) 650 mg PO Q6H PRN PRN PRN Reason: Pain Score 1-10/Temp > 100.7 F Albuterol/Ipratropium (Duoneb) 3 ml INHALATION Q4HWA.RT PRN PRN Reason: sob/wheezing Amiodarone HCl (Cordarone) 100 mg PO DAILY [facility] Amlodipine Besylate (Norvasc) 10 mg PO DAILY JOHANNA Apixaban (Eliquis) 5 mg PO BID JOHANNA Atorvastatin Calcium (Lipitor) 40 mg PO QHS [facility] Calcium/Vitamin D (Os-Abiel 500mg + D) 1 tablet PO DAILY [facility] Carvedilol (Coreg) 25 mg PO BID [facility] Dexamethasone Sodium Phosphate (Decadron) 6 mg IV DAILY [facility] Last Admin: 06/14/20 04:51 Dose: 6 mg Documented by: Dextrose (D50w Syringe) 0 gm IV X1 PRN; Protocol PRN Reason: Hypoglycemia Diltiazem HCl (Cardizem Cd) 360 mg PO DAILY [facility] Duloxetine HCl (Cymbalta) 60 mg PO DAILY [facility] Furosemide (Lasix) 40 mg PO DAILY@0800 [facility] Gabapentin (Neurontin) 600 mg PO BID [facility] Glucagon () 1 mg IM .X1 PRN PRN Reason: Hypoglycemia Guaifenesin (Mucinex) 1,200 mg PO BID [facility] Hydralazine HCl (Apresoline) 100 mg PO TID [facility] Last Admin: 06/14/20 04:52 Dose: Not Given Documented by: Sodium Chloride 19.25 meq/Potassium Chloride 2.5 meq/Dextrose 256.0625 mls @ 40 mls/hr IV .Q6H25M [facility] Stop: 06/15/20 04:41 Last Infusion: 06/14/20 06:00 Dose: 40 mls/hr Documented by: Vancomycin IV Pharmacy to Dose (1 ea/ Sodium Chloride) 500 mls @ 250 mls/hr IV X1 PRN; Protocol PRN Reason: Rx to Dose Piperacillin Sod/Tazobactam (Sod 3.375 gm/ Sodium Chloride) 50 mls @ 12.5 mls/hr IV Q12 JOHANNA Stop: 06/21/20 11:01 Vancomycin HCl 1,250 mg/ (Sodium Chloride) 275 mls @ 167 mls/hr IV Q24H JOHANNA Sodium Chloride () 250 mls @ 15 mls/hr IV .[id number] PRN PRN Reason: Saline Flush Sodium Chloride () 250 mls @ 15 mls/hr IV .[id number] PRN PRN Reason: Additional IVPB Infusion Isosorbide Mononitrate (Imdur) 60 mg PO BID JOHANNA Lisinopril (Zestril) 40 mg PO DAILY JOHANNA Loratadine (Claritin) 10 mg PO QHS JOHANNA Multivitamins/Minerals (Multivitamin With Minerals (Bkc)) 1 tablet PO DAILY@0800 JOHANNA Ondansetron HCl (Zofran) 4 mg IV Q8H PRN PRN PRN Reason: NAUSEA/VOMITING Pantoprazole Sodium (Protonix) 20 mg PO DAILY JOHANNA Potassium Chloride (K-Dur) 10 meq PO DAILY JOHANNA Sodium Chloride () 10 - 40 ml IV UD PRN PRN Reason: SALINE FLUSH Last Admin: 06/14/20 04:52 Dose: 20 ml Documented by: Clinical Impression(s) from Imaging Studies Chest X-Ray 06/14/20 00:54 IMPRESSION: Bilateral pneumonia to include viral pneumonia. Electronically Signed: Joel Leonard MD at 2:40 EDT , Service support , Assessment/Plan Active and Suspected Problems (Last Reviewed 06/14/20 @ 04:[address] Pedro Ferreira MD) Sepsis (Acute) Severe acute respiratory syndrome coronavirus 2 (SARS-CoV-2) infection ruled out (Acute) COVID-19 virus infection (Acute) RECOMMENDATIONS: 1. Continue BiPAP for now 2. Continue Eliquis for anticoagulation, Lovenox if unable to take p.o. 3. Obtained type and screen for possible convalescent serum 4. Defer to infectious disease on antiretroviral 5. Attempt volume restriction IMPRESSIONS: 1. Acute hypoxic respiratory failure secondary to COVID-19 Patient currently tolerating BiPAP therapy, but has been dependent at this point. We will continue to monitor. Patient is on anticoagulation at baseline with Eliquis therapy. Patient would be a candidate for convalescent serum. Defer antiretroviral to infectious disease. Will obtain a type and screen. Continue supportive care. Patient does have pulmonary hypertension at baseline, so volume restriction will be important. 2. Severe sepsis secondary to viral pneumonia Patient does have documented COVID-19. However, patient also has an elevated pro calcitonin, so I believe it is reasonable to continue with empiric antibiotics pending culture data. Patient has remained hemodynamically stable at this time. Patient does have a history of paroxysmal A. fib, so we will need to watch closely. If MRSA is negative, discontinuation of vancomycin is likely reasonable. Infectious disease has been consulted. 3. CKD stage III BUN and creatinine appear to be at baseline at this time. Patient is tolerating current situation well. We will have to watch closely as patient will be at risk for complications of renal failure. Urine output is acceptable at this time. Replete electrolytes as indicated 4. Hypoglycemia Clinical suspicion for residual effects of baseline medications. Continue to monitor blood sugars. Patient has been placed on Decadron therapy, which may lead to hyperglycemia. Patient may require sliding scale insulin in the near term. Variable p.o. intake at this time. 5. History of A. fib/diastolic congestive heart failure/hypertension Patient blood pressure appears to be doing well at this time. Would continue with baseline medications. Rate is controlled at this time. 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 6. Advanced age/rheumatoid/dementia/SUPA Complicates care, management, recovery and prognosis. Patient should continue CPAP at 15 cm of water at baseline once need for BiPAP has resolved. Defer to infectious disease on continuation of baseline immunosuppression. TIME: 40 minutes critical care time spent addressing patient's acute hypoxic respiratory failure, severe sepsis, hypoglycemia, CHF, review of all data and collaboration with care team (6 AM to 7 AM) [id number]: [id number] Critical care first hour
--- NOTE | 2020-06-14 09:37 | PCM.HP.ID ---
Problem List (1) COVID-19 virus infection Status: Acute Reason for Consult: covid Consulted by: Dr. Ferreira History of Present Illness: The patient is a 74 year old M with h/o dementia and CKD, presented yesterday to the ED with worsening cough, dyspnea, substernal chest pain. Sx initially started 06/02, admitted 06/06- with covid here. Given levaquin/decadron then discharged home on prednisone. Is on eliquis as a home med. at home is also sick with covid. Denies any fever or chills. No change in taste or smell. Some headache, some aches, some sore throat. No n/v/d. No dysuria, no rash, no sputum. Came to ED, fever to 103.1, admitted to icu on bipap with vanc/zosyn. Feeling a little better today. Full ROS performed and neg except as noted above. - Medical History Past Medical History (Chronic Problems): Chronic Problems (Last Reviewed 06/14/20 @ 04:[address] Pedro Ferreira MD) Kidney stones (Chronic) Dementia (Chronic) Ureterolithiasis (Chronic) A-fib (Chronic) Asthma (Chronic) Asymptomatic hypertensive urgency (Chronic) Essential hypertension (Chronic) Pulmonary hypertension (Chronic) RVSP 40 mmHg SUPA (obstructive sleep apnea) (Chronic) CPAP 15 cm of water Diverticula of colon (Chronic) Colitis (Chronic) Atrial fibrillation with RVR (Chronic) DM2 (diabetes mellitus, type 2) (Chronic) Hyperlipidemia (Chronic) Inflammatory bowel disease (Chronic) Benign essential HTN (Chronic) Rheumatoid aortitis (Chronic) Allergies/Adverse Reactions: Allergies aspirin Allergy (Severe, Verified 06/06/20 21:00) Mouth swelling donepezil [From Aricept] Adverse Reaction (Severe, Verified 06/06/20 21:00) Swelling morphine Adverse Reaction (Severe, Verified 06/06/20 21:00) UNABLE TO URINATE Home Medications: Ambulatory Orders Medication Instructions Recorded Infliximab-DYYB [Inflectra] 100 mg IV .COMPLEX 02/18/17 Esomeprazole Magnesium [Nexium 20 mg PO DAILY 04/15/17 24Hr] Loratadine [Claritin] 10 mg PO QHS 04/15/17 Glimepiride [Amaryl] 2 mg PO DAILY 01/22/18 Balsalazide Disodium 750 mg PO BID 09/17/18 Multivit-Min/FA/Lycopen/Lutein 1 ea PO DAILY 09/17/18 [Centrum Silver Men Tablet] calcium carbonate-vitamin D3 600 1 tab PO DAILY 06/02/19 mg (1,500 mg)-800 unit tablet duloxetine 60 mg capsule,delayed 60 mg PO DAILY 06/02/19 release gabapentin 600 mg tablet 600 mg PO BID tab 06/02/19 Ipratropium Seki[place] 15 ml NS PRN PRN 01/11/20 Apixaban [Eliquis] 5 mg PO BID 03/24/20 DiphenhydrAMINE [Benadryl] 25 mg PO BID PRN PRN 03/24/20 Rosuvastatin Calcium 20 mg PO DAILY 03/24/20 potassium chloride 10 mEq 10 meq PO DAILY #30 tab 04/18/20 tablet,extended release(part/cryst) amiodarone 200 mg tablet 100 mg PO DAILY tab 05/25/20 amlodipine 10 mg tablet 10 mg PO DAILY tab 05/25/20 carvedilol 25 mg tablet 25 mg PO BID 05/25/20 furosemide 40 mg tablet 40 mg PO DAILY tab 05/25/20 hydralazine 100 mg tablet 100 mg PO TID tab 05/25/20 isosorbide mononitrate 60 mg 60 mg PO BID #60 tab 05/25/20 tablet,extended release 24 hr lisinopril 40 mg tablet 40 mg PO DAILY 05/25/20 Diltiazem HCl [Diltiazem 24Hr ER 360 mg PO DAILY 06/06/20 (Cd)] - Social History SMOKING STATUS:: Former smoker Vital Signs Temp Pulse Resp BP Pulse Ox 96.7 F L 61 17 108/65 96 06/14/20 04:22 06/14/20 08:00 06/14/20 07:16 06/14/20 07:00 06/14/20 07:16 Oxygen Flow Rate (L/min) 15 Oxygen Delivery Method Bi-pap Weight: 87.7 kg Body Mass Index (BMI) 30.2 Finger Stick Blood Glucose 104 Microbiology Past 72 Hours 06/14/20 02:40 Legionella Antigen - Final Urine Catheter - Castellano Streptococcus pneumoniae Antigen (M - Final Laboratory Tests Past 24 Hrs 06/14/20 06/14/20 06/14/20 01:00 01:00 01:00 WBC 11.5 H RBC 3.36 L Hgb 9.6 L Hct 29.3 L MCV 87.2 MCH 28.6 MCHC 32.8 RDW Std Deviation 53.7 H RDW Coeff of Azeem 17.0 H Plt Count 162 MPV 10.8 Immature Gran % (Auto) 2.600 H Neut % (Auto) 88.0 H Lymph % (Auto) 4.7 L Het[place] % (Auto) 4.6 Eos % (Auto) 0.1 Baso % (Auto) 0.0 Absolute Neuts (auto) 10.1 H Absolute Lymphs (auto) 0.54 L Nucleated RBC % 0 Differential Comment SCANNED Ovalocytes RARE PT INR Specimen Type Sample Site pH Bicarbonate Actual Total CO2 Base Excess O2 Saturation O2 % ABG pCO2 ABG pO2 Jasbir Test O2 Delivery Device Sodium 137 Potassium 3.4 L Chloride 103 Carbon Dioxide 28.0 Anion Gap 6 BUN 34 H Creatinine 1.84 H Estim Creat Clear Calc 32.43 Est GFR (MDRD) Af Amer 46 L Est GFR (MDRD) Non-Af 38 L BUN/Creatinine Ratio 18.5 Glucose 73 L Lactic Acid Calcium 8.2 L Total Bilirubin 0.50 AST 60 H ALT 37 Alkaline Phosphatase 49 Lactate Dehydrogenase 396 H Troponin I 0.042 C-React Prot Ext Range 172.00 H B-Natriuretic Peptide 212.1 H Total Protein 6.8 Albumin 2.6 L Globulin 4.2 Albumin/Globulin Ratio 0.6 L Procalcitonin Urine Color Urine Clarity Urine pH Ur Specific [place] Urine Protein Urine Glucose (UA) Urine Ketones Urine Occult Blood Urine Nitrite Urine Bilirubin Urine Urobilinogen Ur Leukocyte Esterase Urine RBC Urine WBC Ur Squamous Epith Cells Urine Bacteria Urine Mucus MRSA (PCR) 06/14/20 06/14/20 06/14/20 01:00 01:00 01:15 WBC RBC Hgb Hct MCV MCH MCHC RDW Std Deviation RDW Coeff of Azeem Plt Count MPV Immature Gran % (Auto) Neut % (Auto) Lymph % (Auto) [place] % (Auto) Eos % (Auto) Baso % (Auto) Absolute Neuts (auto) Absolute Lymphs (auto) Nucleated RBC % Differential Comment Ovalocytes PT 17.3 H INR 1.5 Specimen Type Sample Site pH Bicarbonate Actual Total CO2 Base Excess O2 Saturation O2 % ABG pCO2 ABG pO2 Jasbir Test O2 Delivery Device Sodium Potassium Chloride Carbon Dioxide Anion Gap BUN Creatinine Estim Creat Clear Calc Est GFR (MDRD) Af Amer Est GFR (MDRD) Non-Af BUN/Creatinine Ratio Glucose Lactic Acid 1.4 Calcium Total Bilirubin AST ALT Alkaline Phosphatase Lactate Dehydrogenase Troponin I C-React Prot Ext Range B-Natriuretic Peptide Total Protein Albumin Globulin Albumin/Globulin Ratio Procalcitonin 3.41 H Urine Color Urine Clarity Urine pH Ur Specific [place] Urine Protein Urine Glucose (UA) Urine Ketones Urine Occult Blood Urine Nitrite Urine Bilirubin Urine Urobilinogen Ur Leukocyte Esterase Urine RBC Urine WBC Ur Squamous Epith Cells Urine Bacteria Urine Mucus MRSA (PCR) 06/14/20 06/14/20 06/14/20 01:43 02:40 04:20 WBC 12.2 H RBC 3.08 L Hgb 8.8 L Hct 26.9 L MCV 87.3 MCH 28.6 MCHC 32.7 RDW Std Deviation 54.5 H RDW Coeff of Azeem 17.0 H Plt Count 148 L MPV 10.5 Immature Gran % (Auto) 3.300 H Neut % (Auto) 91.0 H Lymph % (Auto) 2.9 L Hetting[place] % (Auto) 2.8 Eos % (Auto) 0.0 Baso % (Auto) 0.0 Absolute Neuts (auto) 11.1 H Absolute Lymphs (auto) 0.35 L Nucleated RBC % 0 Differential Comment SCANNED Ovalocytes RARE PT INR Specimen Type ART Sample Site L Radial pH 7.48 H Bicarbonate Actual 26.0 Total CO2 27 Base Excess 2 O2 Saturation 97 O2 % 60 ABG pCO2 35.0 ABG pO2 82 Jasbir Test Positive O2 Delivery Device BiPAP Sodium Potassium Chloride Carbon Dioxide Anion Gap BUN Creatinine Estim Creat Clear Calc Est GFR (MDRD) Af Amer Est GFR (MDRD) Non-Af BUN/Creatinine Ratio Glucose Lactic Acid Calcium Total Bilirubin AST ALT Alkaline Phosphatase Lactate Dehydrogenase Troponin I C-React Prot Ext Range B-Natriuretic Peptide Total Protein Albumin Globulin Albumin/Globulin Ratio Procalcitonin Urine Color Yellow Urine Clarity Sl. Cloudy Urine pH 5.0 Ur Specific [place] 1.015 Urine Protein 100 H Urine Glucose (UA) Normal Urine Ketones Negative Urine Occult Blood 25 H Urine Nitrite Negative Urine Bilirubin Negative Urine Urobilinogen Normal Ur Leukocyte Esterase Negative Urine RBC 0-5 SEEN Urine WBC 0 SEEN Ur Squamous Epith Cells 0 SEEN Urine Bacteria 2+ Urine Mucus 0 SEEN MRSA (PCR) 06/14/20 06/14/20 04:20 04:20 WBC RBC Hgb Hct MCV MCH MCHC RDW Std Deviation RDW Coeff of Azeem Plt Count MPV Immature Gran % (Auto) Neut % (Auto) Lymph % (Auto) [place] % (Auto) Eos % (Auto) Baso % (Auto) Absolute Neuts (auto) Absolute Lymphs (auto) Nucleated RBC % Differential Comment Ovalocytes PT INR Specimen Type Sample Site pH Bicarbonate Actual Total CO2 Base Excess O2 Saturation O2 % ABG pCO2 ABG pO2 Jasbir Test O2 Delivery Device Sodium 137 Potassium 3.5 Chloride 101 Carbon Dioxide 30.0 Anion Gap 6 BUN 33 H Creatinine 1.87 H Estim Creat Clear Calc 31.91 Est GFR (MDRD) Af Amer 45 L Est GFR (MDRD) Non-Af 38 L BUN/Creatinine Ratio 17.6 Glucose 87 Lactic Acid Calcium 8.3 L Total Bilirubin 0.60 AST 59 H ALT 36 Alkaline Phosphatase 46 Lactate Dehydrogenase Troponin I C-React Prot Ext Range B-Natriuretic Peptide Total Protein 6.6 Albumin 2.5 L Globulin 4.1 Albumin/Globulin Ratio 0.6 L Procalcitonin Urine Color Urine Clarity Urine pH Ur Specific [place] Urine Protein Urine Glucose (UA) Urine Ketones Urine Occult Blood Urine Nitrite Urine Bilirubin Urine Urobilinogen Ur Leukocyte Esterase Urine RBC Urine WBC Ur Squamous Epith Cells Urine Bacteria Urine Mucus MRSA (PCR) Negative - Other Studies Radiology: [] reviewed cxr images, scattered bilat infiltrate Other Studies: [] Route of nutrition/ use of supplements: [] Nutritional Intake: [] IV Site: [] Castellano Catheter: [] - Physical Exam General: Alert, Cooperative, No apparent distress HEENT: Atraumatic, PERRLA, EOMI Neck: Supple, No Nodes Lungs: Diminished Cardiovascular: Tachycardic Abdomen: Soft, Non Tender, Non-Distended Extremities: No edema Skin: No rashes IV Site: Peripheral, without redness Musculoskeletal: No Tenderness to Palpation of Joints or Extremities Neurological: Cranial nerves II-XII grossly intact - Assessment/Plan Antibiotics: [] Assessment/Plan: [] Active and Suspected Problems (Last Reviewed 06/14/20 @ 04:[address] Pedro Ferreira MD) Sepsis (Acute) Severe acute respiratory syndrome coronavirus 2 (SARS-CoV-2) infection ruled out (Acute) COVID-19 virus infection (Acute) Covid with sepsis, acute hypoxic resp failure, lymphopenia, elevated PCT - sx started 06/02, covid pcr (+) 06/06/20. ABO pending, pulm planning on convalescent plasma. Will order remdesivir. MRSA pcr neg, will stop vanc. Cont zosyn for now. Not producing sputum and UAgs neg. On dexamethasone and eliquis. at home also with covid per the pt. Will follow, thank you. Patient or caregiver was given a copy of the Remdesivir Fact Sheet for Patients and Parents/Caregivers. The following information was communicated to the patient or caregiver: Remdesivir is not an FDA approved drug. The FDA has authorized the emergency use of Remdesivir. The patient had the option to refuse or accept treatment with Remdesivir. The patient was informed that the number of people treated with Remdesivir is small at this time. The potential benefits and potential risks of Remdesivir are not fully known. Potential benefits of Remdesivir include a shorter time to recovery of COVID-19 infection. Potential risks or side effects of Remdesivir include sweating, shivering, nausea and vomiting or low blood pressure related to a reaction to the medication infusion and increases in liver enzymes. No drugs are approved by the FDA to treat COVID-19 at this time. The patient (or appointed communications representative) stated understanding of information communicated and wished to proceed with Remdesivir treatment.
[2020-06-14] MEDS: Carvedilol 25 MG Tablet PO ×2 (11:21→21:27)
[2020-06-14] MEDS: APIXABAN 5 MG TABLET PO ×2 (11:21→21:27)
[2020-06-14] MEDS: Isosorbide Mononitrate 60 MG Tablet PO ×2 (11:22→21:27)
[2020-06-14] MEDS: Pantoprazole Sodium 20 MG Tablet PO (11:22)
[2020-06-14] MEDS: Amiodarone 200 MG Tablet 100 MG PO (11:22)
[2020-06-14] MEDS: Multivitamins,Ther W-Minerals Tablet 1 TABLET PO (11:22)
[2020-06-14] MEDS: Gabapentin 600 MG Tablet PO ×2 (11:23→21:27)
[2020-06-14] MEDS: Calcium Carb/Vitamin D 1 TABLET Tablet PO (11:23)
[2020-06-14] MEDS: Furosemide 40 MG Tablet PO (11:24)
[2020-06-14] MEDS: DULoxetine Hcl 60 MG Capsule PO (11:24)
[2020-06-14] MEDS: guaiFENesin 1,200 MG Tablet 1200 MG PO ×2 (11:24→21:27)
[2020-06-14] MEDS: dilTIAZem CD 180 MG Capsule 360 MG PO (11:24)
[2020-06-14] MEDS: amLODIPine 10 MG Tablet PO (11:28)
[2020-06-14 11:29] LABS: Hematocrit 28.2 % (40-54); Hemoglobin 9.2 g/dL (13.0-16.5)
--- NOTE | 2020-06-14 11:34 | CASEMGMT ---
Per RN CM assessment from patient's visit to [facility] last week he has a Healthcare Living Will and a Healthcare Power of [employer]. He was notified they are not on file at [facility]. 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 Elvia GOULD MSW
[2020-06-14 12:00] LABS: Bedside Glucose 237 mg/dL (70-110)
--- NOTE | 2020-06-14 13:09 | CASEMGMT ---
Readmission chart review: Pt initially admitted 06/06-06/08/2020 for Acute hypoxic respiratory failure d/t COVID. Pt was on room air for most of visit. Pt was discharged home on room air and to quarantine at home with . See assessment completed by this RN CM on 06/07/2020. Pt returned to [facility] ED via squad on 06/13/2020 for cough, fever, weakness, confusion and blood sugar via squad was 57. Pt was started on 6liters nc but needed to be put on bipap and has been on cont bipap since. Pt still with confusion/lethargy this am. Respiratory attempting to decrease bipap O2 requirement at this time. Pt to be started on convalescent plasma and remdisivir and ID is consulted. CM to follow for PT/OT evals and for any further discharge planning/needs. SStjodie CUNNINGHAM CM
--- NOTE | 2020-06-14 13:15 | PN_ITS ---
Patient Problems: Active and Suspected Problems (Last Reviewed 06/14/20 @ 04:[address] Pedro Ferreira MD) Sepsis (Acute) Severe acute respiratory syndrome coronavirus 2 (SARS-CoV-2) infection ruled out (Acute) COVID-19 virus infection (Acute) Reason for Visit: COVID-19 Subjective: On BiPAP. Complains of chest pain from coughing. Vitals/I&O's: Vital Signs Temp Pulse Resp BP Pulse Ox 36.8 C 72 16 128/84 H 93 06/14/20 12:00 06/14/20 12:07 06/14/20 12:07 06/14/20 12:00 06/14/20 12:07 Oxygen Flow Rate (L/min) 15 Oxygen Delivery Method Bi-pap Weight: 87.7 kg Body Mass Index (BMI) 30.2 Finger Stick Blood Glucose 104 Intake and Output for Last 24 Hours 06/12/20 06/13/20 06/14/20 23:59 23:59 23:59 Intake Total 931.0625 / 931.0625 Output Total 950 / 950 Balance -18.9375 / -18.9375 General: Alert, - - on BiPAP HEENT: Atraumatic, Normocephalic Oral: Moist Mucosa, No Gingival or Mucosal Lesions/ Ulcerations Neck: No Nodes, Thyroid Normal Size and Texture Lungs: Clear to auscultation, - - coarse breath sounds Cardiovascular: Regular rate, Regular Rhythm, Normal S1, Normal S2, No murmurs Abdomen: Bowel Sounds Present, Soft, Non Tender, Non-Distended, No Hepato- splenomegaly Extremities: No edema, No Calf Tenderness Skin: No rashes, No breakdown Musculoskeletal: No Tenderness to Palpation of Joints or Extremities, No Muscle Wasting Psych/Mental Status: Normal Affect, Appropriate Microbiology Past 72 Hours 06/14/20 02:40 Urine Catheter - Castellano Legionella Antigen - Final 06/14/20 02:40 Urine Catheter - Castellano Streptococcus pneumoniae Antigen (M - Final Laboratory Results 06/14/20 01:00: Sodium 137, Potassium 3.4 L, Chloride 103, Carbon Dioxide 28.0, Anion Gap 6, BUN 34 H, Creatinine 1.84 H, Estim Creat Clear Calc 32.43, Est GFR (MDRD) Af Amer 46 L, Est GFR (MDRD) Non-Af 38 L, BUN/Creatinine Ratio 18.5, Glucose 73 L, Calcium 8.2 L, Total Bilirubin 0.50, AST 60 H, ALT 37, Alkaline Phosphatase 49, Lactate Dehydrogenase 396 H, Troponin I 0.042, C-React Prot Ext Range 172.00 H, Total Protein 6.8, Albumin 2.6 L, Globulin 4.2, Albumin/Globulin Ratio 0.6 L 06/14/20 01:00: B-Natriuretic Peptide 212.1 H 06/14/20 01:00: WBC 11.5 H, RBC 3.36 L, Hgb 9.6 L, Hct 29.3 L, MCV 87.2, MCH 28.6, MCHC 32.8, RDW Std Deviation 53.7 H, RDW Coeff of Azeem 17.0 H, Plt Count 162, MPV 10.8, Immature Gran % (Auto) 2.600 H, Neut % (Auto) 88.0 H, Lymph % (Auto) 4.7 L, [place] % (Auto) 4.6, Eos % (Auto) 0.1, Baso % (Auto) 0.0, Absolute Neuts (auto) 10.1 H, Absolute Lymphs (auto) 0.54 L, Nucleated RBC % 0, Differential Comment SCANNED, Ovalocytes RARE 06/14/20 01:00: Lactic Acid 1.4 06/14/20 01:00: PT 17.3 H, INR 1.5 06/14/20 01:15: Procalcitonin 3.41 H 06/14/20 01:19: POC Glucose 66 L 06/14/20 01:43: Specimen Type ART, Sample Site L Radial, pH 7.48 H, Bicarbonate Actual 26.0, Total CO2 27, Base Excess 2, O2 Saturation 97, O2 % 60, ABG pCO2 35.0, ABG pO2 82, Jasbir Test Positive, O2 Delivery Device BiPAP 06/14/20 01:43: POC Glucose 148 H 06/14/20 02:26: POC Glucose 104 06/14/20 02:40: Urine Color Yellow, Urine Clarity Sl. Cloudy, Urine pH 5.0, Ur Specific Bracey 1.015, Urine Protein 100 H, Urine Glucose (UA) Normal, Urine Ketones Negative, Urine Occult Blood 25 H, Urine Nitrite Negative, Urine Bilirubin Negative, Urine Urobilinogen Normal, Ur Leukocyte Esterase Negative, Urine RBC 0-5 SEEN, Urine WBC 0 SEEN, Ur Squamous Epith Cells 0 SEEN, Urine Bacteria 2+, Urine Mucus 0 SEEN 06/14/20 04:20: WBC 12.2 H, RBC 3.08 L, Hgb 8.8 L, Hct 26.9 L, MCV 87.3, MCH 28.6, MCHC 32.7, RDW Std Deviation 54.5 H, RDW Coeff of Azeem 17.0 H, Plt Count 148 L, MPV 10.5, Immature Gran % (Auto) 3.300 H, Neut % (Auto) 91.0 H, Lymph % (Auto) 2.9 L, [place] % (Auto) 2.8, Eos % (Auto) 0.0, Baso % (Auto) 0.0, Absolute Neuts (auto) 11.1 H, Absolute Lymphs (auto) 0.35 L, Nucleated RBC % 0, Differential Comment SCANNED, Ovalocytes RARE 06/14/20 04:20: Sodium 137, Potassium 3.5, Chloride 101, Carbon Dioxide 30.0, Anion Gap 6, BUN 33 H, Creatinine 1.87 H, Estim Creat Clear Calc 31.91, Est GFR (MDRD) Af Amer 45 L, Est GFR (MDRD) Non-Af 38 L, BUN/Creatinine Ratio 17.6, Glucose 87, Calcium 8.3 L, Total Bilirubin 0.60, AST 59 H, ALT 36, Alkaline Phosphatase 46, Total Protein 6.6, Albumin 2.5 L, Globulin 4.1, Albumin/Globulin Ratio 0.6 L 06/14/20 04:20: MRSA (PCR) Negative 06/14/20 04:46: POC Glucose 90 06/14/20 11:10: Hgb 9.2 L, Hct 28.2 L 06/14/20 11:10: Blood Type AB POSITIVE, Antibody Screen NEGATIVE 06/14/20 11:54: POC Glucose 237 H Current Medications Acetaminophen (Tylenol) 650 mg PO Q6H PRN PRN PRN Reason: Pain Score 1-10/Temp > 100.7 F Albuterol/Ipratropium (Duoneb) 3 ml INHALATION Q4HWA.RT PRN PRN Reason: sob/wheezing Amiodarone HCl (Cordarone) 100 mg PO DAILY JOHANNA Last Admin: 06/14/20 11:22 Dose: 100 mg Documented by: Amlodipine Besylate (Norvasc) 10 mg PO DAILY [facility] Last Admin: 06/14/20 11:28 Dose: 10 mg Documented by: Apixaban (Eliquis) 5 mg PO BID [facility] Last Admin: 06/14/20 11:21 Dose: 5 mg Documented by: Atorvastatin Calcium (Lipitor) 40 mg PO QHS [facility] Calcium/Vitamin D (Os-Abiel 500mg + D) 1 tablet PO DAILY [facility] Last Admin: 06/14/20 11:23 Dose: 1 tablet Documented by: Carvedilol (Coreg) 25 mg PO BID [facility] Last Admin: 06/14/20 11:21 Dose: 25 mg Documented by: Dexamethasone Sodium Phosphate (Decadron) 6 mg IV DAILY [facility] Last Admin: 06/14/20 04:51 Dose: 6 mg Documented by: Dextrose (D50w Syringe) 0 gm IV X1 PRN; Protocol PRN Reason: Hypoglycemia Diltiazem HCl (Cardizem Cd) 360 mg PO DAILY [facility] Last Admin: 06/14/20 11:24 Dose: 360 mg Documented by: Duloxetine HCl (Cymbalta) 60 mg PO DAILY [facility] Last Admin: 06/14/20 11:24 Dose: 60 mg Documented by: Furosemide (Lasix) 40 mg PO DAILY@0800 [facility] Last Admin: 06/14/20 11:24 Dose: 40 mg Documented by: Gabapentin (Neurontin) 600 mg PO BID [facility] Last Admin: 06/14/20 11:23 Dose: 600 mg Documented by: Glucagon () 1 mg IM .X1 PRN PRN Reason: Hypoglycemia Guaifenesin (Mucinex) 1,200 mg PO BID [facility] Last Admin: 06/14/20 11:24 Dose: 1,200 mg Documented by: Hydralazine HCl (Apresoline) 100 mg PO TID [facility] Last Admin: 06/14/20 04:52 Dose: Not Given Documented by: Sodium Chloride 19.25 meq/Potassium Chloride 2.5 meq/Dextrose 256.0625 mls @ 40 mls/hr IV .Q6H25M [facility] Stop: 06/15/20 04:41 Last Infusion: 06/14/20 11:46 Dose: Infused Documented by: Piperacillin Sod/Tazobactam (Sod 3.375 gm/ Sodium Chloride) 50 mls @ 12.5 mls/hr IV Q12 [facility] Stop: 06/21/20 11:01 Last Admin: 06/14/20 11:59 Dose: 12.5 mls/hr Documented by: Sodium Chloride () 250 mls @ 15 mls/hr IV .[id number] PRN PRN Reason: Saline Flush Sodium Chloride () 250 mls @ 15 mls/hr IV .[id number] PRN PRN Reason: Additional IVPB Infusion Remdesivir (Investigational) (100 mg/ Sodium Chloride) 250 mls @ 125 mls/hr IV DAILY [facility]; Protocol Stop: 06/18/20 11:59 Isosorbide Mononitrate (Imdur) 60 mg PO BID [facility] Last Admin: 06/14/20 11:22 Dose: 60 mg Documented by: Lisinopril (Zestril) 40 mg PO DAILY [facility] Loratadine (Claritin) 10 mg PO QHS [facility] Multivitamins/Minerals (Multivitamin With Minerals (Bkc)) 1 tablet PO DAILY@0800 [facility] Last Admin: 06/14/20 11:22 Dose: 1 tablet Documented by: Ondansetron HCl (Zofran) 4 mg IV Q8H PRN PRN PRN Reason: NAUSEA/VOMITING Pantoprazole Sodium (Protonix) 20 mg PO DAILY [facility] Last Admin: 06/14/20 11:22 Dose: 20 mg Documented by: Potassium Chloride (K-Dur) 10 meq PO DAILY [facility] Last Admin: 06/14/20 11:24 Dose: 10 meq Documented by: Sodium Chloride () 10 - 40 ml IV UD PRN PRN Reason: SALINE FLUSH Last Admin: 06/14/20 04:52 Dose: 20 ml Documented by: STROKE Vital Signs/Narrative: Vital Signs Temp Pulse Resp BP BP Pulse Ox 06/14/20 12:07 72 16 93 06/14/20 12:00 36.8 C 69 21 H 128/84 H 128/84 H 94 06/14/20 11:00 36.0 C L 66 23 H 126/68 H 93 06/14/20 10:14 62 16 95 06/14/20 10:00 35.8 C L 62 18 120/62 96 Medical Necessity - Tobacco Use Smoking Status: Former smoker Assessment/Plan All Active Problems (Last Reviewed 06/14/20 @ 04:[address] Pedro Ferreira MD) Sepsis (Acute) Severe acute respiratory syndrome coronavirus 2 (SARS-CoV-2) infection ruled out (Acute) COVID-19 virus infection (Acute) Chest tightness (Resolved) Hypertensive urgency (Resolved) Left wrist pain (Resolved) Syncopal episodes (Resolved) Ureteral calculus, right (Resolved) 1. COVID-19 infection * on remdesivir, dexamethasone * convalescent plasma ordered * likely viral pneumonia +/- bacterial pneumonia. On Pip/tazo * ID following 2. Sepsis * POA * 2/2 above. * follow up cultures 3. acute hypoxic respiratory failure * 2/2 above * on BiPAP * mgmt per CCM 4. Hypoglycemia * resolved * 2/2 above and glimepiride * hold glimepiride 5. Afib * on amiodarone, carveilol, apixaban 6. VTE prophylaxis: already anticoagulated. Procedures: Other Procedure - See Report - non-billable rounding. patient seen after midnight
[2020-06-14 14:26] LABS: Bedside Glucose 243 mg/dL (70-110)
[2020-06-14 17:30] LABS: Bedside Glucose 190 mg/dL (70-110)
[2020-06-14] MEDS: Lisinopril 40 MG Tablet PO (21:27)
[2020-06-14] MEDS: Loratadine 10 MG Tablet PO (21:27)
[2020-06-14] MEDS: Atorvastatin Calcium 40 MG Tablet PO (21:27)
[2020-06-14] MEDS: hydrALAZINE 50 MG Tablet 100 MG PO (21:28)
[2020-06-15] VITALS (46 sets, daily range): BP systolic 91–119; BP diastolic 49–68; PULSE 54–86; RESP 12–28; TEMP 36–37.9; O2SAT 90–98
[2020-06-15 00:31] LABS: Bedside Glucose 192 mg/dL (70-110)
[2020-06-15 01:16] LABS: Bedside Glucose 181 mg/dL (70-110)
[2020-06-15 04:41] LABS: Hematocrit 25.3 % (40-54); Hemoglobin 8.4 g/dL (13.0-16.5); Mean Corp Hgb Conc 33.2 g/dL (32-36); Mean Corpuscular Hgb 28.9 pg (27.0-32.0); Mean Corpuscular Volume 86.9 fL (80-94); Mean Platelet Vol. 11.3 fl (6.2-12.0); Platelet Count 168 K/mm3 (150-450); RBC Distribution Width CV 17.2 % (11.6-14.6); RBC Distribution Width SD 55.5 fl (35.1-43.9); Red Blood Count 2.91 M/mm3 (4.6-6.2); White Blood Count 9.2 K/mm3 (4.4-11.0)
[2020-06-15 04:59] LABS: ALB/GLOB Ratio 0.5 RATIO (0.9-2.4); AST(SGOT) 49 U/L (15-37); Alanine Aminotransfer ALT/SGPT 31 U/L (16-61); Albumin, Serum 2.2 g/dL (3.2-5.0); Alkaline Phosphatase 43 U/L (45-117); Anion Gap 8 (5-15); BUN 46 mg/dL (7-18); BUN/Creat Ratio 23.6 RATIO (10-20); Chloride 106 mmol/L (98-107); Creatinine, Serum 1.95 mg/dL (0.70-1.30); EST Glomerular Filtration Rate 36 mL/min (>60); Est Glom Filt Rate - Afr Amer 43 mL/min (>60); Globulin 4.1 g/dL (2.2-4.2); Glucose 186 mg/dL (74-106); Potassium 4.1 mmol/L (3.5-5.1); Protein, Total 6.3 g/dL (6.4-8.2); Sodium Level 141 mmol/L (136-145)
--- NOTE | 2020-06-15 07:22 | PN_ITS ---
Subjective: Patient did okay overnight. Patient has remained on the BiPAP consistently since admission outside of brief periods of time on 10 L nasal cannula to attempt p.o. medications. Patient did report overnight that he felt like he was not getting enough air. Patient has reported some sore throat, but no hoarseness. Patient did have significant fever overnight. Oxygenation overall has improved compared to admission. Patient is not having any diarrhea or abdominal complaints. General: Alert, Oriented x3, Cooperative - More cooperative today compared to yesterday, - - Good BiPAP synchrony. HEENT: Atraumatic, PERRLA, EOMI, Normocephalic, - - No scleral icterus or injection noted Oral: No Gingival or Mucosal Lesions/ Ulcerations, Dry Mucosa Neck: Supple, No JVD, No Nodes, Trachea Midline Lungs: No rhonchi, Diminished, Rales, Wheezes - Sporadic Cardiovascular: Regular rate, Regular Rhythm, Normal S1, Normal S2, No murmurs, No rub noted, No Gallop Abdomen: Bowel Sounds Present, Soft, Non Tender, Non-Distended, Obese Extremities: No clubbing, No cyanosis, Edema - Trace lower extremity Skin: - - No changes compared to previous Musculoskeletal: No Tenderness to Palpation of Joints or Extremities Lymphatic: No Cervical, Supraclavicular, or Inguinal Adenopathy Neurological: Cranial nerves II-XII grossly intact, Neuro grossly intact, Motor Exam 5/5 strength throughout Psych/Mental Status: Alert and oriented to time, place, person, mood and affect Vital Signs Temp Pulse Resp BP Pulse Ox 37.2 C 59 L 12 99/55 L 90 06/15/20 07:00 06/15/20 07:00 06/15/20 07:00 06/15/20 07:00 06/15/20 07:00 Oxygen Flow Rate (L/min) 55 Oxygen Delivery Method Bi-pap Weight: 86.6 kg Body Mass Index (BMI) 30.2 Finger Stick Blood Glucose 104 Intake and Output for Last 24 Hours 06/13/20 06/14/20 06/15/20 23:59 23:59 23:59 Intake Total 1471.0625 / 1471.0625 290 / 290 Output Total 1800 / 1950 300 / 300 Balance -328.9375 / -478.9375 -10 / -10 Labs (Last 48 Hours) 06/14/20 06/14/2006/14/20 01:00 01:00 01:00 WBC 11.5 H RBC 3.36 L Hgb 9.6 L Hct 29.3 L MCV 87.2 MCH 28.6 MCHC 32.8 RDW Std Deviation 53.7 H RDW Coeff of Azeem 17.0 H Plt Count 162 MPV 10.8 Immature Gran % (Auto) 2.600 H Neut % (Auto) 88.0 H Lymph % (Auto) 4.7 L [place] % (Auto) 4.6 Eos % (Auto) 0.1 Baso % (Auto) 0.0 Absolute Neuts (auto) 10.1 H Absolute Lymphs (auto) 0.54 L Nucleated RBC % 0 Differential Comment SCANNED Ovalocytes RARE PT INR Specimen Type Sample Site pH Bicarbonate Actual Total CO2 Base Excess O2 Saturation O2 % ABG pCO2 ABG pO2 Jasbir Test O2 Delivery Device Sodium 137 Potassium 3.4 L Chloride 103 Carbon Dioxide 28.0 Anion Gap 6 BUN 34 H Creatinine 1.84 H Estim Creat Clear Calc 32.43 Est GFR (MDRD) Af Amer 46 L Est GFR (MDRD) Non-Af 38 L BUN/Creatinine Ratio 18.5 Glucose 73 L Lactic Acid Calcium 8.2 L Total Bilirubin 0.50 AST 60 H ALT 37 Alkaline Phosphatase 49 Lactate Dehydrogenase 396 H Troponin I 0.042 C-React Prot Ext Range 172.00 H B-Natriuretic Peptide 212.1 H Total Protein 6.8 Albumin 2.6 L Globulin 4.2 Albumin/Globulin Ratio 0.6 L Procalcitonin Urine Color Urine Clarity Urine pH Ur Specific [place] Urine Protein Urine Glucose (UA) Urine Ketones Urine Occult Blood Urine Nitrite Urine Bilirubin Urine Urobilinogen Ur Leukocyte Esterase Urine RBC Urine WBC Ur Squamous Epith Cells Urine Bacteria Urine Mucus MRSA (PCR) POC Glucose Blood Type Antibody Screen 06/14/20 06/14/20 06/14/20 01:00 01:00 01:15 WBC RBC Hgb Hct MCV MCH MCHC RDW Std Deviation RDW Coeff of Azeem Plt Count MPV Immature Gran % (Auto) Neut % (Auto) Lymph % (Auto) [place] % (Auto) Eos % (Auto) Baso % (Auto) Absolute Neuts (auto) Absolute Lymphs (auto) Nucleated RBC % Differential Comment Ovalocytes PT 17.3 H INR 1.5 Specimen Type Sample Site pH Bicarbonate Actual Total CO2 Base Excess O2 Saturation O2 % ABG pCO2 ABG pO2 Jasbir Test O2 Delivery Device Sodium Potassium Chloride Carbon Dioxide Anion Gap BUN Creatinine Estim Creat Clear Calc Est GFR (MDRD) Af Amer Est GFR (MDRD) Non-Af BUN/Creatinine Ratio Glucose Lactic Acid 1.4 Calcium Total Bilirubin AST ALT Alkaline Phosphatase Lactate Dehydrogenase Troponin I C-React Prot Ext Range B-Natriuretic Peptide Total Protein Albumin Globulin Albumin/Globulin Ratio Procalcitonin 3.41 H Urine Color Urine Clarity Urine pH Ur Specific [place] Urine Protein Urine Glucose (UA) Urine Ketones Urine Occult Blood Urine Nitrite Urine Bilirubin Urine Urobilinogen Ur Leukocyte Esterase Urine RBC Urine WBC Ur Squamous Epith Cells Urine Bacteria Urine Mucus MRSA (PCR) POC Glucose Blood Type Antibody Screen 06/14/20 06/14/20 06/14/20 01:19 01:43 01:43 WBC RBC Hgb Hct MCV MCH MCHC RDW Std Deviation RDW Coeff of Azeem Plt Count MPV Immature Gran % (Auto) Neut % (Auto) Lymph % (Auto) [place] % (Auto) Eos % (Auto) Baso % (Auto) Absolute Neuts (auto) Absolute Lymphs (auto) Nucleated RBC % Differential Comment Ovalocytes PT INR Specimen Type ART Sample Site L Radial pH 7.48 H Bicarbonate Actual 26.0 Total CO2 27 Base Excess 2 O2 Saturation 97 O2 % 60 ABG pCO2 35.0 ABG pO2 82 Jasbir Test Positive O2 Delivery Device BiPAP Sodium Potassium Chloride Carbon Dioxide Anion Gap BUN Creatinine Estim Creat Clear Calc Est GFR (MDRD) Af Amer Est GFR (MDRD) Non-Af BUN/Creatinine Ratio Glucose Lactic Acid Calcium Total Bilirubin AST ALT Alkaline Phosphatase Lactate Dehydrogenase Troponin I C-React Prot Ext Range B-Natriuretic Peptide Total Protein Albumin Globulin Albumin/Globulin Ratio Procalcitonin Urine Color Urine Clarity Urine pH Ur Specific [place] Urine Protein Urine Glucose (UA) Urine Ketones Urine Occult Blood Urine Nitrite Urine Bilirubin Urine Urobilinogen Ur Leukocyte Esterase Urine RBC Urine WBC Ur Squamous Epith Cells Urine Bacteria Urine Mucus MRSA (PCR) POC Glucose 66 L 148 H Blood Type Antibody Screen 06/14/20 06/14/20 06/14/20 02:26 02:40 04:20 WBC 12.2 H RBC 3.08 L Hgb 8.8 L Hct 26.9 L MCV 87.3 MCH 28.6 MCHC 32.7 RDW Std Deviation 54.5 H RDW Coeff of Azeem 17.0 H Plt Count 148 L MPV 10.5 Immature Gran % (Auto) 3.300 H Neut % (Auto) 91.0 H Lymph % (Auto) 2.9 L [place] % (Auto) 2.8 Eos % (Auto) 0.0 Baso % (Auto) 0.0 Absolute Neuts (auto) 11.1 H Absolute Lymphs (auto) 0.35 L Nucleated RBC % 0 Differential Comment SCANNED Ovalocytes RARE PT INR Specimen Type Sample Site pH Bicarbonate Actual Total CO2 Base Excess O2 Saturation O2 % ABG pCO2 ABG pO2 Jasbir Test O2 Delivery Device Sodium Potassium Chloride Carbon Dioxide Anion Gap BUN Creatinine Estim Creat Clear Calc Est GFR (MDRD) Af Amer Est GFR (MDRD) Non-Af BUN/Creatinine Ratio Glucose Lactic Acid Calcium Total Bilirubin AST ALT Alkaline Phosphatase Lactate Dehydrogenase Troponin I C-React Prot Ext Range B-Natriuretic Peptide Total Protein Albumin Globulin Albumin/Globulin Ratio Procalcitonin Urine Color Yellow Urine Clarity Sl. Cloudy Urine pH 5.0 Ur Specific [place] 1.015 Urine Protein 100 H Urine Glucose (UA) Normal Urine Ketones Negative Urine Occult Blood 25 H Urine Nitrite Negative Urine Bilirubin Negative Urine Urobilinogen Normal Ur Leukocyte Esterase Negative Urine RBC 0-5 SEEN Urine WBC 0 SEEN Ur Squamous Epith Cells 0 SEEN Urine Bacteria 2+ Urine Mucus 0 SEEN MRSA (PCR) POC Glucose 104 Blood Type Antibody Screen 06/14/20 06/14/20 06/14/20 04:20 04:20 04:46 WBC RBC Hgb Hct MCV MCH MCHC RDW Std Deviation RDW Coeff of Azeem Plt Count MPV Immature Gran % (Auto) Neut % (Auto) Lymph % (Auto) [place] % (Auto) Eos % (Auto) Baso % (Auto) Absolute Neuts (auto) Absolute Lymphs (auto) Nucleated RBC % Differential Comment Ovalocytes PT INR Specimen Type Sample Site pH Bicarbonate Actual Total CO2 Base Excess O2 Saturation O2 % ABG pCO2 ABG pO2 Jasbir Test O2 Delivery Device Sodium 137 Potassium 3.5 Chloride 101 Carbon Dioxide 30.0 Anion Gap 6 BUN 33 H Creatinine 1.87 H Estim Creat Clear Calc 31.91 Est GFR (MDRD) Af Amer 45 L Est GFR (MDRD) Non-Af 38 L BUN/Creatinine Ratio 17.6 Glucose 87 Lactic Acid Calcium 8.3 L Total Bilirubin 0.60 AST 59 H ALT 36 Alkaline Phosphatase 46 Lactate Dehydrogenase Troponin I C-React Prot Ext Range B-Natriuretic Peptide Total Protein 6.6 Albumin 2.5 L Globulin 4.1 Albumin/Globulin Ratio 0.6 L Procalcitonin Urine Color Urine Clarity Urine pH Ur Specific [place] Urine Protein Urine Glucose (UA) Urine Ketones Urine Occult Blood Urine Nitrite Urine Bilirubin Urine Urobilinogen Ur Leukocyte Esterase Urine RBC Urine WBC Ur Squamous Epith Cells Urine Bacteria Urine Mucus MRSA (PCR) Negative POC Glucose 90 Blood Type Antibody Screen 06/14/20 06/14/20 06/14/20 11:10 11:10 11:54 WBC RBC Hgb 9.2 L Hct 28.2 L MCV MCH MCHC RDW Std Deviation RDW Coeff of Azeem Plt Count MPV Immature Gran % (Auto) Neut % (Auto) Lymph % (Auto) [place] % (Auto) Eos % (Auto) Baso % (Auto) Absolute Neuts (auto) Absolute Lymphs (auto) Nucleated RBC % Differential Comment Ovalocytes PT INR Specimen Type Sample Site pH Bicarbonate Actual Total CO2 Base Excess O2 Saturation O2 % ABG pCO2 ABG pO2 Jasbir Test O2 Delivery Device Sodium Potassium Chloride Carbon Dioxide Anion Gap BUN Creatinine Estim Creat Clear Calc Est GFR (MDRD) Af Amer Est GFR (MDRD) Non-Af BUN/Creatinine Ratio Glucose Lactic Acid Calcium Total Bilirubin AST ALT Alkaline Phosphatase Lactate Dehydrogenase Troponin I C-React Prot Ext Range B-Natriuretic Peptide Total Protein Albumin Globulin Albumin/Globulin Ratio Procalcitonin Urine Color Urine Clarity Urine pH Ur Specific [place] Urine Protein Urine Glucose (UA) Urine Ketones Urine Occult Blood Urine Nitrite Urine Bilirubin Urine Urobilinogen Ur Leukocyte Esterase Urine RBC Urine WBC Ur Squamous Epith Cells Urine Bacteria Urine Mucus MRSA (PCR) POC Glucose 237 H Blood Type AB POSITIVE Antibody Screen NEGATIVE 06/14/20 06/14/20 06/14/20 14:19 17:13 21:19 WBC RBC Hgb Hct MCV MCH MCHC RDW Std Deviation RDW Coeff of Azeem Plt Count MPV Immature Gran % (Auto) Neut % (Auto) Lymph % (Auto) [place] % (Auto) Eos % (Auto) Baso % (Auto) Absolute Neuts (auto) Absolute Lymphs (auto) Nucleated RBC % Differential Comment Ovalocytes PT INR Specimen Type Sample Site pH Bicarbonate Actual Total CO2 Base Excess O2 Saturation O2 % ABG pCO2 ABG pO2 Jasbir Test O2 Delivery Device Sodium Potassium Chloride Carbon Dioxide Anion Gap BUN Creatinine Estim Creat Clear Calc Est GFR (MDRD) Af Amer Est GFR (MDRD) Non-Af BUN/Creatinine Ratio Glucose Lactic Acid Calcium Total Bilirubin AST ALT Alkaline Phosphatase Lactate Dehydrogenase Troponin I C-React Prot Ext Range B-Natriuretic Peptide Total Protein Albumin Globulin Albumin/Globulin Ratio Procalcitonin Urine Color Urine Clarity Urine pH Ur Specific [place] Urine Protein Urine Glucose (UA) Urine Ketones Urine Occult Blood Urine Nitrite Urine Bilirubin Urine Urobilinogen Ur Leukocyte Esterase Urine RBC Urine WBC Ur Squamous Epith Cells Urine Bacteria Urine Mucus MRSA (PCR) POC Glucose 243 H 190 H 192 H Blood Type Antibody Screen 06/15/20 06/15/20 06/15/20 00:39 04:30 04:30 WBC 9.2 RBC 2.91 L Hgb 8.4 L Hct 25.3 L MCV 86.9 MCH 28.9 MCHC 33.2 RDW Std Deviation 55.5 H RDW Coeff of Azeem 17.2 H Plt Count 168 MPV 11.3 Immature Gran % (Auto) Neut % (Auto) Lymph % (Auto) [place] % (Auto) Eos % (Auto) Baso % (Auto) Absolute Neuts (auto) Absolute Lymphs (auto) Nucleated RBC % Differential Comment Ovalocytes PT INR Specimen Type Sample Site pH Bicarbonate Actual Total CO2 Base Excess O2 Saturation O2 % ABG pCO2 ABG pO2 Jasbir Test O2 Delivery Device Sodium 141 Potassium 4.1 Chloride 106 Carbon Dioxide 27.0 Anion Gap 8 BUN 46 H Creatinine 1.95 H Estim Creat Clear Calc 30.60 Est GFR (MDRD) Af Amer 43 L Est GFR (MDRD) Non-Af 36 L BUN/Creatinine Ratio 23.6 H Glucose 186 H Lactic Acid Calcium 8.0 L Total Bilirubin 0.50 AST 49 H ALT 31 Alkaline Phosphatase 43 L Lactate Dehydrogenase Troponin I C-React Prot Ext Range B-Natriuretic Peptide Total Protein 6.3 L Albumin 2.2 L Globulin 4.1 Albumin/Globulin Ratio 0.5 L Procalcitonin Urine Color Urine Clarity Urine pH Ur Specific [place] Urine Protein Urine Glucose (UA) Urine Ketones Urine Occult Blood Urine Nitrite Urine Bilirubin Urine Urobilinogen Ur Leukocyte Esterase Urine RBC Urine WBC Ur Squamous Epith Cells Urine Bacteria Urine Mucus MRSA (PCR) POC Glucose 181 H Blood Type Antibody Screen Microbiology 06/14/20 02:40 Urine Catheter - Castellano Legionella Antigen - Final 06/14/20 02:40 Urine Catheter - Castellano Streptococcus pneumoniae Antigen (M - Final Medical Necessity - Tobacco Use Smoking Status: Former smoker Assessment/Plan All Active Problems (Last Reviewed 06/14/20 @ 04:[address] Pedro Ferreira MD) Sepsis (Acute) Severe acute respiratory syndrome coronavirus 2 (SARS-CoV-2) infection ruled out (Acute) COVID-19 virus infection (Acute) Chest tightness (Resolved) Hypertensive urgency (Resolved) Left wrist pain (Resolved) Syncopal episodes (Resolved) Ureteral calculus, right (Resolved) RECOMMENDATIONS: 1. Attempt high flow nasal cannula with BiPAP rescue as indicated 2. Continue Eliquis for anticoagulation, Lovenox if unable to take p.o. 3. Administer 2 units of COVID convalescent serum 4. Continue steroids, antiretroviral and anticoagulation 5. Attempt volume restriction. Possible Lasix tomorrow if weight increases IMPRESSIONS: 1. Acute hypoxic respiratory failure secondary to COVID-19 Patient currently tolerating BiPAP therapy, but has been dependent at this point. We will continue to monitor. Patient is on anticoagulation at baseline with Eliquis therapy. Patient would be a candidate for convalescent serum. Antiretroviral per infectious disease. Continue supportive care. Patient does have pulmonary hypertension at baseline, so volume restriction will be important long-term. Weight is decreased compared to yesterday 2. Severe sepsis secondary to viral pneumonia Patient does have documented COVID-19. However, patient also has an elevated pro calcitonin, so I believe it is reasonable to continue with empiric antibiotics pending culture data. Patient has remained hemodynamically stable at this time. Patient does have a history of paroxysmal A. fib, so we will need to watch closely. Infectious disease is following. 3. CKD stage III BUN and creatinine appear to be at baseline at this time. Patient is tolerating current situation well. We will have to watch closely as patient will be at risk for complications of renal failure. Urine output is acceptable at this time. Replete electrolytes as indicated 4. Hypoglycemia Improving. Clinical suspicion for residual effects of baseline medications. Continue to monitor blood sugars. Patient has been placed on Decadron therapy, which may lead to hyperglycemia. Patient may require sliding scale insulin in the near term. Variable p.o. intake at this time. If blood sugars remain stable for 24 hours, likely okay to discontinue blood sugar checks 5. History of A. fib/diastolic congestive heart failure/hypertension Patient blood pressure appears to be doing well at this time. We will hold hydralazine. Some concern of noncompliance as an outpatient leading to multiple medications. Rate is controlled at this time. 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 6. Advanced age/rheumatoid/dementia/SUPA Complicates care, management, recovery and prognosis. Patient should continue CPAP at 15 cm of water at baseline once need for BiPAP has resolved. Defer to infectious disease on continuation of baseline immunosuppression. TIME: 33 minutes critical care time spent addressing patient's acute hypoxic respiratory failure, severe sepsis, hypoglycemia, CHF, review of all data and collaboration with care team (6:30 AM to 7:30 AM) [id number]: [id number] Critical care first hour
[2020-06-15] MEDS: guaiFENesin 1,200 MG Tablet 1200 MG PO ×2 (08:41→20:12)
[2020-06-15] MEDS: dilTIAZem CD 180 MG Capsule 360 MG PO (08:42)
[2020-06-15] MEDS: Lisinopril 40 MG Tablet PO (08:42)
[2020-06-15] MEDS: Isosorbide Mononitrate 60 MG Tablet PO (08:42)
[2020-06-15] MEDS: Multivitamins,Ther W-Minerals Tablet 1 TABLET PO (08:42)
[2020-06-15] MEDS: DULoxetine Hcl 60 MG Capsule PO (08:42)
[2020-06-15] MEDS: amLODIPine 10 MG Tablet PO (08:43)
[2020-06-15] MEDS: Carvedilol 25 MG Tablet PO (08:43)
[2020-06-15] MEDS: Pantoprazole Sodium 20 MG Tablet PO (08:43)
[2020-06-15] MEDS: Amiodarone 200 MG Tablet 100 MG PO (08:43)
[2020-06-15] MEDS: Furosemide 40 MG Tablet PO (08:43)
[2020-06-15] MEDS: dexAMETHasone 10 MG/ML Vial 6 MG IV (08:44)
[2020-06-15] MEDS: Gabapentin 600 MG Tablet PO ×2 (08:44→20:12)
[2020-06-15] MEDS: APIXABAN 5 MG TABLET PO ×2 (08:44→20:12)
[2020-06-15] MEDS: Calcium Carb/Vitamin D 1 TABLET Tablet PO (08:50)
--- NOTE | 2020-06-15 09:56 | CASEMGMT ---
This RN CM participated in ICU multidisciplinary rounds. Pt is now on airvo and to be put on diet at this time. Pt to received 2 units of convalesent plasma today, if it can be obtained. CM to follow for PT/OT and possible home oxygen need at discharge. SStaten OCTAVIO BERMUDEZ
[2020-06-15] MEDS: Insulin Lispro 100 UNIT/ML INSULN.PEN SC ×3 (12:00→20:14)
--- NOTE | 2020-06-15 13:49 | PN_ITS ---
Patient Problems: Active and Suspected Problems (Last Reviewed 06/14/20 @ 04:[address] Pedro Ferreira MD) Sepsis (Acute) Severe acute respiratory syndrome coronavirus 2 (SARS-CoV-2) infection ruled out (Acute) COVID-19 virus infection (Acute) Reason for Visit: COVID-19 Subjective: Changed to high-flow nasal canula. Breathing better. Vitals/I&O's: Vital Signs Temp Pulse Resp BP Pulse Ox 37.1 C 63 14 98/49 L 96 06/15/20 12:00 06/15/20 13:00 06/15/20 13:00 06/15/20 13:00 06/15/20 13:00 Oxygen Flow Rate (L/min) 60 Oxygen Delivery Method Mechanical Ventilator Weight: 86.6 kg Body Mass Index (BMI) 30.2 Finger Stick Blood Glucose 104 Intake and Output for Last 24 Hours 06/13/20 06/14/20 06/15/20 23:59 23:59 23:59 Intake Total 1471.0625 / 1471.0625 780 / 780 Output Total 1800 / 1950 825 / 825 Balance -328.9375 / -478.9375 -45 / -45 General: Alert, No apparent distress HEENT: Atraumatic, Normocephalic Oral: Moist Mucosa, No Gingival or Mucosal Lesions/ Ulcerations Neck: No Nodes, Thyroid Normal Size and Texture Lungs: Clear to auscultation, Normal air movement, No rhonchi, No wheeze, No rales Cardiovascular: - - coarse breath sounds Abdomen: Bowel Sounds Present, Soft, Non Tender, Non-Distended, No Hepato- splenomegaly Extremities: No edema, No Calf Tenderness Psych/Mental Status: Normal Affect, Appropriate Microbiology Past 72 Hours 06/14/20 02:40 Urine Catheter - Catheter Urine Culture - Preliminary Culture exhibits no growth. 06/14/20 02:40 Urine Catheter - Castellano Legionella Antigen - Final 06/14/20 02:40 Urine Catheter - Castellano Streptococcus pneumoniae Antigen (M - Final Laboratory Results 06/14/20 14:19: POC Glucose 243 H 06/14/20 17:13: POC Glucose 190 H 06/14/20 21:19: POC Glucose 192 H 06/15/20 00:39: POC Glucose 181 H 06/15/20 04:30: WBC 9.2, RBC 2.91 L, Hgb 8.4 L, Hct 25.3 L, MCV 86.9, MCH 28.9, MCHC 33.2, RDW Std Deviation 55.5 H, RDW Coeff of Azeem 17.2 H, Plt Count 168, MPV 11.3 06/15/20 04:30: Sodium 141, Potassium 4.1, Chloride 106, Carbon Dioxide 27.0, Anion Gap 8, BUN 46 H, Creatinine 1.95 H, Estim Creat Clear Calc 30.60, Est GFR (MDRD) Af Amer 43 L, Est GFR (MDRD) Non-Af 36 L, BUN/Creatinine Ratio 23.6 H, Glucose 186 H, Calcium 8.0 L, Total Bilirubin 0.50, AST 49 H, ALT 31, Alkaline Phosphatase 43 L, Total Protein 6.3 L, Albumin 2.2 L, Globulin 4.1, Albumin/Globulin Ratio 0.5 L Current Medications Acetaminophen (Tylenol) 650 mg PO Q6H PRN PRN PRN Reason: Pain Score 1-10/Temp > 100.7 F Albuterol/Ipratropium (Duoneb) 3 ml INHALATION Q4HWA.RT PRN PRN Reason: sob/wheezing Amiodarone HCl (Cordarone) 100 mg PO DAILY [facility] Last Admin: 06/15/20 08:43 Dose: 100 mg Documented by: Amlodipine Besylate (Norvasc) 10 mg PO DAILY [facility] Last Admin: 06/15/20 08:43 Dose: 10 mg Documented by: Apixaban (Eliquis) 5 mg PO BID [facility] Last Admin: 06/15/20 08:44 Dose: 5 mg Documented by: Atorvastatin Calcium (Lipitor) 40 mg PO QHS [facility] Last Admin: 06/14/20 21:27 Dose: 40 mg Documented by: Calcium/Vitamin D (Os-Abiel 500mg + D) 1 tablet PO DAILY [facility] Last Admin: 06/15/20 08:50 Dose: 1 tablet Documented by: Carvedilol (Coreg) 25 mg PO BID [facility] Last Admin: 06/15/20 08:43 Dose: 25 mg Documented by: Dexamethasone Sodium Phosphate (Decadron) 6 mg IV DAILY [facility] Last Admin: 06/15/20 08:44 Dose: 6 mg Documented by: Dextrose (D50w Syringe) 0 gm IV X1 PRN; Protocol PRN Reason: Hypoglycemia Diltiazem HCl (Cardizem Cd) 360 mg PO DAILY [facility] Last Admin: 06/15/20 08:42 Dose: 360 mg Documented by: Duloxetine HCl (Cymbalta) 60 mg PO DAILY [facility] Last Admin: 06/15/20 08:42 Dose: 60 mg Documented by: Furosemide (Lasix) 40 mg PO DAILY@0800 [facility] Last Admin: 06/15/20 08:43 Dose: 40 mg Documented by: Gabapentin (Neurontin) 600 mg PO BID [facility] Last Admin: 06/15/20 08:44 Dose: 600 mg Documented by: Glucagon () 1 mg IM .X1 PRN PRN Reason: Hypoglycemia Guaifenesin (Mucinex) 1,200 mg PO BID [facility] Last Admin: 06/15/20 08:41 Dose: 1,200 mg Documented by: Piperacillin Sod/Tazobactam (Sod 3.375 gm/ Sodium Chloride) 50 mls @ 12.5 mls/hr IV Q12 [facility] Stop: 06/21/20 11:01 Last Admin: 06/15/20 11:25 Dose: 12.5 mls/hr Documented by: Sodium Chloride () 250 mls @ 15 mls/hr IV .[id number] PRN PRN Reason: Saline Flush Sodium Chloride () 250 mls @ 15 mls/hr IV .[id number] PRN PRN Reason: Additional IVPB Infusion Remdesivir (Investigational) (100 mg/ Sodium Chloride) 250 mls @ 125 mls/hr IV DAILY [facility]; Protocol Stop: 06/18/20 11:59 Last Infusion: 06/15/20 12:48 Dose: Infused Documented by: Insulin Human Lispro (Humalog Kwcesarpen (Bkc)) 0 unit SC ACHS [facility]; Protocol Last Admin: 06/15/20 12:00 Dose: 1 u Documented by: Isosorbide Mononitrate (Imdur) 60 mg PO BID [facility] Last Admin: 06/15/20 08:42 Dose: 60 mg Documented by: Lisinopril (Zestril) 40 mg PO DAILY [facility] Last Admin: 06/15/20 08:42 Dose: 40 mg Documented by: Loratadine (Claritin) 10 mg PO QHS [facility] Last Admin: 06/14/20 21:27 Dose: 10 mg Documented by: Multivitamins/Minerals (Multivitamin With Minerals (Bkc)) 1 tablet PO DAILY@0800 [facility] Last Admin: 06/15/20 08:42 Dose: 1 tablet Documented by: Ondansetron HCl (Zofran) 4 mg IV Q8H PRN PRN PRN Reason: NAUSEA/VOMITING Pantoprazole Sodium (Protonix) 20 mg PO DAILY [facility] Last Admin: 06/15/20 08:43 Dose: 20 mg Documented by: Potassium Chloride (K-Dur) 10 meq PO DAILY [facility] Last Admin: 06/15/20 08:42 Dose: 10 meq Documented by: Sodium Chloride () 10 - 40 ml IV UD PRN PRN Reason: SALINE FLUSH Last Admin: 06/14/20 21:26 Dose: 10 ml Documented by: STROKE Vital Signs/Narrative: Vital Signs Temp Pulse Resp BP BP Pulse Ox 06/15/20 13:00 63 14 98/49 L 96 06/15/20 12:00 37.1 C 59 L 14 102/54 L 94 06/15/20 11:04 58 L 06/15/20 11:00 58 L 20 H 103/68 94 06/15/20 10:00 86 12 100/52 L 95 Medical Necessity - Tobacco Use Smoking Status: Former smoker Assessment/Plan All Active Problems (Last Reviewed 06/14/20 @ 04:[address] Pedro Ferreira MD) Sepsis (Acute) Severe acute respiratory syndrome coronavirus 2 (SARS-CoV-2) infection ruled out (Acute) COVID-19 virus infection (Acute) Chest tightness (Resolved) Hypertensive urgency (Resolved) Left wrist pain (Resolved) Syncopal episodes (Resolved) Ureteral calculus, right (Resolved) 1. COVID-19 infection * on remdesivir, dexamethasone * convalescent plasma ordered * likely viral pneumonia +/- bacterial pneumonia. On Pip/tazo * ID following 2. Sepsis * POA * 2/2 above. * follow up cultures 3. acute hypoxic respiratory failure * 2/2 above * weaned down to high-flow oxygen * mgmt per [facility] 4. Hypoglycemia * resolved * 2/2 above and glimepiride * hold glimepiride 5. Afib * on amiodarone, carveilol, apixaban 6. VTE prophylaxis: already anticoagulated. Inpatient E&M: [id number] [facility] L2
--- NOTE | 2020-06-15 14:48 | PN.ID_ITS ---
Patient Problems: Active and Suspected Problems (Last Reviewed 06/14/20 @ 04:[address] Pedro Ferreira MD) Sepsis (Acute) Severe acute respiratory syndrome coronavirus 2 (SARS-CoV-2) infection ruled out (Acute) COVID-19 virus infection (Acute) Subjective: Feeling better, breathing improved, bringing up sputum. No fever. - Physical Exam Vitals/I&O's: Vital Signs Temp Pulse Resp BP Pulse Ox 98.8 F 58 L 24 H 94/53 L 92 06/15/20 12:00 06/15/20 14:00 06/15/20 14:00 06/15/20 14:00 06/15/20 14:00 Oxygen Flow Rate (L/min) 60 Oxygen Delivery Method Nasal Cannula Weight: 86.6 kg Body Mass Index (BMI) 30.2 Finger Stick Blood Glucose 104 Intake and Output for Last 24 Hours 06/13/20 06/14/20 06/15/20 23:59 23:59 23:59 Intake Total 1471.0625 / 1471.0625 780 / 780 Output Total 1800 / 1950 825 / 825 Balance -328.9375 / -478.9375 -45 / -45 General: Alert, Cooperative, No apparent distress Lungs: Clear to auscultation, Normal air movement Cardiovascular: Regular rate, Regular Rhythm Abdomen: Soft, Non Tender, Non-Distended Skin: No rashes Microbiology Past 72 Hours 06/14/20 02:40 Urine Catheter - Catheter Urine Culture - Preliminary Culture exhibits no growth. 06/14/20 02:40 Urine Catheter - Castellano Legionella Antigen - Final 06/14/20 02:40 Urine Catheter - Castellano Streptococcus pneumoniae Antigen (M - Final Laboratory Results 06/14/20 17:13: POC Glucose 190 H 06/14/20 21:19: POC Glucose 192 H 06/15/20 00:39: POC Glucose 181 H 06/15/20 04:30: WBC 9.2, RBC 2.91 L, Hgb 8.4 L, Hct 25.3 L, MCV 86.9, MCH 28.9, MCHC 33.2, RDW Std Deviation 55.5 H, RDW Coeff of Azeem 17.2 H, Plt Count 168, MPV 11.3 06/15/20 04:30: Sodium 141, Potassium 4.1, Chloride 106, Carbon Dioxide 27.0, Anion Gap 8, BUN 46 H, Creatinine 1.95 H, Estim Creat Clear Calc 30.60, Est GFR (MDRD) Af Amer 43 L, Est GFR (MDRD) Non-Af 36 L, BUN/Creatinine Ratio 23.6 H, Glucose 186 H, Calcium 8.0 L, Total Bilirubin 0.50, AST 49 H, ALT 31, Alkaline Phosphatase 43 L, Total Protein 6.3 L, Albumin 2.2 L, Globulin 4.1, Albumin/Globulin Ratio 0.5 L Current Medications Acetaminophen (Tylenol) 650 mg PO Q6H PRN PRN PRN Reason: Pain Score 1-10/Temp > 100.7 F Albuterol/Ipratropium (Duoneb) 3 ml INHALATION Q4HWA.RT PRN PRN Reason: sob/wheezing Amiodarone HCl (Cordarone) 100 mg PO DAILY [facility] Last Admin: 06/15/20 08:43 Dose: 100 mg Documented by: Amlodipine Besylate (Norvasc) 10 mg PO DAILY [facility] Last Admin: 06/15/20 08:43 Dose: 10 mg Documented by: Apixaban (Eliquis) 5 mg PO BID [facility] Last Admin: 06/15/20 08:44 Dose: 5 mg Documented by: Atorvastatin Calcium (Lipitor) 40 mg PO QHS [facility] Last Admin: 06/14/20 21:27 Dose: 40 mg Documented by: Calcium/Vitamin D (Os-Abiel 500mg + D) 1 tablet PO DAILY [facility] Last Admin: 06/15/20 08:50 Dose: 1 tablet Documented by: Carvedilol (Coreg) 25 mg PO BID [facility] Last Admin: 06/15/20 08:43 Dose: 25 mg Documented by: Dexamethasone Sodium Phosphate (Decadron) 6 mg IV DAILY [facility] Last Admin: 06/15/20 08:44 Dose: 6 mg Documented by: Dextrose (D50w Syringe) 0 gm IV X1 PRN; Protocol PRN Reason: Hypoglycemia Diltiazem HCl (Cardizem Cd) 360 mg PO DAILY [facility] Last Admin: 06/15/20 08:42 Dose: 360 mg Documented by: Duloxetine HCl (Cymbalta) 60 mg PO DAILY [facility] Last Admin: 06/15/20 08:42 Dose: 60 mg Documented by: Furosemide (Lasix) 40 mg PO DAILY@0800 [facility] Last Admin: 06/15/20 08:43 Dose: 40 mg Documented by: Gabapentin (Neurontin) 600 mg PO BID [facility] Last Admin: 06/15/20 08:44 Dose: 600 mg Documented by: Glucagon () 1 mg IM .X1 PRN PRN Reason: Hypoglycemia Guaifenesin (Mucinex) 1,200 mg PO BID [facility] Last Admin: 06/15/20 08:41 Dose: 1,200 mg Documented by: Piperacillin Sod/Tazobactam (Sod 3.375 gm/ Sodium Chloride) 50 mls @ 12.5 mls/hr IV Q12 [facility] Stop: 06/21/20 11:01 Last Admin: 06/15/20 11:25 Dose: 12.5 mls/hr Documented by: Sodium Chloride () 250 mls @ 15 mls/hr IV .[id number] PRN PRN Reason: Saline Flush Sodium Chloride () 250 mls @ 15 mls/hr IV .[id number] PRN PRN Reason: Additional IVPB Infusion Remdesivir (Investigational) (100 mg/ Sodium Chloride) 250 mls @ 125 mls/hr IV DAILY [facility]; Protocol Stop: 06/18/20 11:59 Last Infusion: 06/15/20 12:48 Dose: Infused Documented by: Insulin Human Lispro (Humalog Samantha (Bk)) 0 unit SC ACHS [facility]; Protocol Last Admin: 06/15/20 12:00 Dose: 1 u Documented by: Isosorbide Mononitrate (Imdur) 60 mg PO BID [facility] Last Admin: 06/15/20 08:42 Dose: 60 mg Documented by: Lisinopril (Zestril) 40 mg PO DAILY [facility] Last Admin: 06/15/20 08:42 Dose: 40 mg Documented by: Loratadine (Claritin) 10 mg PO QHS [facility] Last Admin: 06/14/20 21:27 Dose: 10 mg Documented by: Multivitamins/Minerals (Multivitamin With Minerals (Bkc)) 1 tablet PO DAILY@0800 [facility] Last Admin: 06/15/20 08:42 Dose: 1 tablet Documented by: Ondansetron HCl (Zofran) 4 mg IV Q8H PRN PRN PRN Reason: NAUSEA/VOMITING Pantoprazole Sodium (Protonix) 20 mg PO DAILY [facility] Last Admin: 06/15/20 08:43 Dose: 20 mg Documented by: Potassium Chloride (K-Dur) 10 meq PO DAILY [facility] Last Admin: 06/15/20 08:42 Dose: 10 meq Documented by: Sodium Chloride () 10 - 40 ml IV UD PRN PRN Reason: SALINE FLUSH Last Admin: 06/14/20 21:26 Dose: 10 ml Documented by: Medical Necessity - Tobacco Use Smoking Status: Former smoker Route of nutrition/ use of supplements: [] Nutritional Intake: [] IV Site: [] Castellano Catheter: [] - Assessment/Plan Antibiotics: [] Assessment/Plan: [] Active and Suspected Problems (Last Reviewed 06/14/20 @ 04:[address] Pedro Ferreira MD) Sepsis (Acute) Severe acute respiratory syndrome coronavirus 2 (SARS-CoV-2) infection ruled out (Acute) COVID-19 virus infection (Acute) Covid with sepsis, acute hypoxic resp failure, lymphopenia, elevated PCT - sx started 06/02, covid pcr (+) 06/06/20. ABO pending, pulm planning on convalescent plasma. Will order remdesivir. MRSA pcr neg, will stop vanc. Cont zosyn for now. UAgs neg. On dexamethasone and eliquis. at home also with covid per the pt. Will get sputum cx if he can produce one. Will follow
[2020-06-15 17:41] LABS: Bedside Glucose 211 mg/dL (70-110)
[2020-06-15 19:01] LABS: Bedside Glucose 184 mg/dL (70-110)
[2020-06-15] MEDS: 0.9% Saline Lock 10 ML Syringe IV (19:59)
[2020-06-15] MEDS: Atorvastatin Calcium 40 MG Tablet PO (20:12)
[2020-06-15] MEDS: Loratadine 10 MG Tablet PO (20:12)
[2020-06-15 22:41] LABS: Bedside Glucose 315 mg/dL (70-110)
[2020-06-16] VITALS (30 sets, daily range): BP systolic 103–141; BP diastolic 58–76; PULSE 51–67; RESP 12–24; TEMP 35.7–36; O2SAT 92–98
[2020-06-16] MEDS: 0.9% Saline Lock 10 ML Syringe IV ×2 (04:26→22:14)
[2020-06-16 05:03] LABS: Hematocrit 25.9 % (40-54); Hemoglobin 8.6 g/dL (13.0-16.5); Mean Corp Hgb Conc 33.2 g/dL (32-36); Mean Corpuscular Hgb 28.8 pg (27.0-32.0); Mean Corpuscular Volume 86.6 fL (80-94); Mean Platelet Vol. 11.2 fl (6.2-12.0); Platelet Count 170 K/mm3 (150-450); RBC Distribution Width CV 17.2 % (11.6-14.6); RBC Distribution Width SD 55.2 fl (35.1-43.9); Red Blood Count 2.99 M/mm3 (4.6-6.2); White Blood Count 6.5 K/mm3 (4.4-11.0)
[2020-06-16 05:16] LABS: ALB/GLOB Ratio 0.5 RATIO (0.9-2.4); AST(SGOT) 93 U/L (15-37); Alanine Aminotransfer ALT/SGPT 60 U/L (16-61); Albumin, Serum 2.3 g/dL (3.2-5.0); Alkaline Phosphatase 47 U/L (45-117); Anion Gap 10 (5-15); BUN 56 mg/dL (7-18); BUN/Creat Ratio 29.9 RATIO (10-20); Calcium,Total 7.9 mg/dL (8.5-10.1); Chloride 103 mmol/L (98-107); Creatinine, Serum 1.87 mg/dL (0.70-1.30); EST Glomerular Filtration Rate 38 mL/min (>60); Est Glom Filt Rate - Afr Amer 45 mL/min (>60); Estimated Creatinine Clearance 31.91 ml/min; Globulin 4.3 g/dL (2.2-4.2); Glucose 185 mg/dL (74-106); Potassium 3.8 mmol/L (3.5-5.1); Protein, Total 6.6 g/dL (6.4-8.2); Sodium Level 140 mmol/L (136-145)
[2020-06-16] MEDS: DULoxetine Hcl 60 MG Capsule PO (08:35)
[2020-06-16] MEDS: Furosemide 20 MG/2 ML VIAL IV (08:35)
[2020-06-16] MEDS: dilTIAZem CD 180 MG Capsule 360 MG PO (08:35)
[2020-06-16] MEDS: dexAMETHasone 10 MG/ML Vial 6 MG IV (08:36)
[2020-06-16] MEDS: Insulin Lispro 100 UNIT/ML INSULN.PEN SC ×4 (08:36→22:09)
[2020-06-16] MEDS: guaiFENesin 1,200 MG Tablet 1200 MG PO ×2 (08:36→22:13)
[2020-06-16] MEDS: Lisinopril 40 MG Tablet PO (08:36)
[2020-06-16] MEDS: Calcium Carb/Vitamin D 1 TABLET Tablet PO (08:37)
[2020-06-16] MEDS: Isosorbide Mononitrate 60 MG Tablet PO ×2 (08:37→22:13)
[2020-06-16] MEDS: Multivitamins,Ther W-Minerals Tablet 1 TABLET PO (08:37)
[2020-06-16] MEDS: Amiodarone 200 MG Tablet 100 MG PO (08:37)
[2020-06-16] MEDS: Carvedilol 25 MG Tablet PO ×2 (08:37→22:13)
[2020-06-16] MEDS: Furosemide 40 MG Tablet PO (08:37)
[2020-06-16] MEDS: Gabapentin 600 MG Tablet PO ×2 (08:38→22:13)
[2020-06-16] MEDS: Pantoprazole Sodium 20 MG Tablet PO (08:38)
[2020-06-16] MEDS: APIXABAN 5 MG TABLET PO ×2 (08:38→22:13)
[2020-06-16] MEDS: amLODIPine 10 MG Tablet PO (08:38)
--- NOTE | 2020-06-16 08:50 | PCM.PN.INT ---
Subjective: Patient did well overnight. Patient did receive his convalescent serum yesterday and tolerated it well. Patient does report a productive cough this morning, but has been able to tolerate high flow nasal cannula and a p.o. diet relatively well. Patient is denying any nausea, but overall feels worse than yesterday. General: Alert, Oriented x3, Cooperative, No apparent distress, - - Appears stated age. Obese. Mild conversational dyspnea. HEENT: Atraumatic, PERRLA, EOMI, Normocephalic, - - Slight scleral injection noted Oral: Moist Mucosa, No Gingival or Mucosal Lesions/ Ulcerations Neck: Supple, No JVD, No Nodes, Trachea Midline Lungs: No rhonchi, No rales, Diminished, Wheezes, - - Symmetric expansion. Cardiovascular: Regular rate, Regular Rhythm, Normal S1, Normal S2, No murmurs, No rub noted, No Gallop Abdomen: Bowel Sounds Present, Soft, Non Tender, Non-Distended Extremities: No clubbing, No cyanosis, No edema Skin: No rashes, No breakdown Musculoskeletal: No Tenderness to Palpation of Joints or Extremities Lymphatic: No Cervical, Supraclavicular, or Inguinal Adenopathy Neurological: Cranial nerves II-XII grossly intact, Neuro grossly intact, Motor Exam 5/5 strength throughout Psych/Mental Status: Appropriate, Anxious Vital Signs Temp Pulse Resp BP Pulse Ox 35.7 C L 58 L 22 H 132/71 H 94 06/16/20 06:00 06/16/20 07:00 06/16/20 07:00 06/16/20 07:00 06/16/20 07:00 Oxygen Flow Rate (L/min) 60 Oxygen Delivery Method Bi-pap Weight: 89.2 kg Body Mass Index (BMI) 30.2 Finger Stick Blood Glucose 104 Intake and Output for Last 24 Hours 06/14/20 06/15/20 06/16/20 23:59 23:59 23:59 Intake Total 1471.0625 / 1471.0625 2370 / 2490 530 / 530 Output Total 1800 / 1950 1325 / 1525 650 / 650 Balance -328.9375 / -478.9375 1045 / 965 -120 / -120 Labs (Last 48 Hours) 06/14/20 06/14/20 06/14/20 11:10 11:10 11:54 WBC RBC Hgb 9.2 L Hct 28.2 L MCV MCH MCHC RDW Std Deviation RDW Coeff of Azeem Plt Count MPV Sodium Potassium Chloride Carbon Dioxide Anion Gap BUN Creatinine Estim Creat Clear Calc Est GFR (MDRD) Af Amer Est GFR (MDRD) Non-Af BUN/Creatinine Ratio Glucose Calcium Total Bilirubin AST ALT Alkaline Phosphatase Total Protein Albumin Globulin Albumin/Globulin Ratio POC Glucose 237 H Blood Type AB POSITIVE Antibody Screen NEGATIVE 06/14/20 06/14/20 06/14/20 14:19 17:13 21:19 WBC RBC Hgb Hct MCV MCH MCHC RDW Std Deviation RDW Coeff of Azeem Plt Count MPV Sodium Potassium Chloride Carbon Dioxide Anion Gap BUN Creatinine Estim Creat Clear Calc Est GFR (MDRD) Af Amer Est GFR (MDRD) Non-Af BUN/Creatinine Ratio Glucose Calcium Total Bilirubin AST ALT Alkaline Phosphatase Total Protein Albumin Globulin Albumin/Globulin Ratio POC Glucose 243 H 190 H 192 H Blood Type Antibody Screen 06/15/20 06/15/20 06/15/20 00:39 04:30 04:30 WBC 9.2 RBC 2.91 L Hgb 8.4 L Hct 25.3 L MCV 86.9 MCH 28.9 MCHC 33.2 RDW Std Deviation 55.5 H RDW Coeff of Azeem 17.2 H Plt Count 168 MPV 11.3 Sodium 141 Potassium 4.1 Chloride 106 Carbon Dioxide 27.0 Anion Gap 8 BUN 46 H Creatinine 1.95 H Estim Creat Clear Calc 30.60 Est GFR (MDRD) Af Amer 43 L Est GFR (MDRD) Non-Af 36 L BUN/Creatinine Ratio 23.6 H Glucose 186 H Calcium 8.0 L Total Bilirubin 0.50 AST 49 H ALT 31 Alkaline Phosphatase 43 L Total Protein 6.3 L Albumin 2.2 L Globulin 4.1 Albumin/Globulin Ratio 0.5 L POC Glucose 181 H Blood Type Antibody Screen 06/15/20 06/15/20 06/15/20 11:58 16:40 19:54 WBC RBC Hgb Hct MCV MCH MCHC RDW Std Deviation RDW Coeff of Azeem Plt Count MPV Sodium Potassium Chloride Carbon Dioxide Anion Gap BUN Creatinine Estim Creat Clear Calc Est GFR (MDRD) Af Amer Est GFR (MDRD) Non-Af BUN/Creatinine Ratio Glucose Calcium Total Bilirubin AST ALT Alkaline Phosphatase Total Protein Albumin Globulin Albumin/Globulin Ratio POC Glucose 184 H 211 H 315 H Blood Type Antibody Screen 06/16/20 06/16/20 04:25 04:25 WBC 6.5 RBC 2.99 L Hgb 8.6 L Hct 25.9 L MCV 86.6 MCH 28.8 MCHC 33.2 RDW Std Deviation 55.2 H RDW Coeff of Azeem 17.2 H Plt Count 170 MPV 11.2 Sodium 140 Potassium 3.8 Chloride 103 Carbon Dioxide 27.0 Anion Gap 10 BUN 56 H Creatinine 1.87 H Estim Creat Clear Calc 31.91 Est GFR (MDRD) Af Amer 45 L Est GFR (MDRD) Non-Af 38 L BUN/Creatinine Ratio 29.9 H Glucose 185 H Calcium 7.9 L Total Bilirubin 0.40 AST 93 H ALT 60 Alkaline Phosphatase 47 Total Protein 6.6 Albumin 2.3 L Globulin 4.3 H Albumin/Globulin Ratio 0.5 L POC Glucose Blood Type Antibody Screen Microbiology 06/14/20 02:40 Urine Catheter - Catheter Urine Culture - Final Culture exhibits no growth. Medical Necessity - Tobacco Use Smoking Status: Former smoker Assessment/Plan All Active Problems (Last Reviewed 06/14/20 @ 04:[address] Pedro Ferreira MD) Sepsis (Acute) Severe acute respiratory syndrome coronavirus 2 (SARS-CoV-2) infection ruled out (Acute) COVID-19 virus infection (Acute) Chest tightness (Resolved) Hypertensive urgency (Resolved) Left wrist pain (Resolved) Syncopal episodes (Resolved) Ureteral calculus, right (Resolved) RECOMMENDATIONS: 1. Continue high flow nasal cannula with BiPAP with sleep and rescue as indicated 2. Continue Eliquis for anticoagulation, Decadron for 10 day course and Remdisivir 3. Increase activity as tolerated 4. Continue PT/OT along with dietary measures to preserve strength 5. Attempt volume restriction. Possible Lasix tomorrow if weight increases IMPRESSIONS: 1. Acute hypoxic respiratory failure secondary to COVID-19 Patient currently tolerating BiPAP therapy with sleep only. We will continue to monitor. Patient is on anticoagulation at baseline with Eliquis therapy. Patient has received convalescent serum. Antiretroviral per infectious disease. Continue supportive care. Patient does have pulmonary hypertension at baseline, so volume restriction will be important long-term. Patient will be given a dose of Lasix today to attempt euvolemia for hospitalization 2. Severe sepsis secondary to viral pneumonia Patient does have documented COVID-19. However, patient also has an elevated pro calcitonin, so I believe it is reasonable to continue with empiric antibiotics pending culture data. Patient has remained hemodynamically stable at this time. Patient does have a history of paroxysmal A. fib, so we will need to watch closely. Infectious disease is following. 3. CKD stage III BUN and creatinine appear to be at baseline at this time. Patient is tolerating current situation well. We will have to watch closely as patient will be at risk for complications of renal failure. Urine output is acceptable at this time. Replete electrolytes as indicated. Single dose of Lasix today. 4. Hypoglycemia/diabetes mellitus Patient now having some episodes with elevated blood sugars, likely secondary to Decadron. Clinical suspicion for residual effects of baseline medications. Continue to monitor blood sugars. Patient may require increased sliding scale insulin in the near term. Variable p.o. intake at this time. Continue blood sugar checks for diabetes mellitus 5. History of A. fib/diastolic congestive heart failure/hypertension Patient blood pressure appears to be doing well at this time. We will hold hydralazine. Some concern of noncompliance as an outpatient leading to multiple medications. Rate is controlled at this time. 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 6. Advanced age/rheumatoid/dementia/SUPA Complicates care, management, recovery and prognosis. Patient should continue CPAP at 15 cm of water at baseline once need for BiPAP has resolved. Defer to infectious disease on continuation of baseline immunosuppression. Inpatient E&M: 34495 [facility] Hosp L3
--- NOTE | 2020-06-16 10:40 | PCM.PN.ID ---
Patient Problems: Active and Suspected Problems (Last Reviewed 06/14/20 @ 04:[address] Pedro Ferreira MD) Sepsis (Acute) Severe acute respiratory syndrome coronavirus 2 (SARS-CoV-2) infection ruled out (Acute) COVID-19 virus infection (Acute) Subjective: Feeling better, but had a lot of cough and sputum last night. No fever. - Physical Exam Vitals/I&O's: Vital Signs Temp Pulse Resp BP Pulse Ox 96.3 F L 58 L 18 119/62 98 06/16/20 06:00 06/16/20 10:00 06/16/20 10:00 06/16/20 10:00 06/16/20 10:00 Oxygen Flow Rate (L/min) 60 Oxygen Delivery Method Nasal Cannula Weight: 89.2 kg Body Mass Index (BMI) 30.2 Finger Stick Blood Glucose 104 Intake and Output for Last 24 Hours 06/14/20 06/15/20 06/16/20 23:59 23:59 23:59 Intake Total 1471.0625 / 1471.0625 2370 / 2490 530 / 530 Output Total 1800 / 1950 1325 / 1525 975 / 975 Balance -328.9375 / -478.9375 1045 / 965 -445 / -445 General: Alert, Cooperative, No apparent distress Lungs: Clear to auscultation, Normal air movement Cardiovascular: Regular rate, Regular Rhythm Abdomen: Soft, Non Tender, Non-Distended Skin: No rashes Microbiology Past 72 Hours 06/14/20 02:40 Urine Catheter - Catheter Urine Culture - Final Culture exhibits no growth. 06/14/20 02:40 Urine Catheter - Castellano Legionella Antigen - Final 06/14/20 02:40 Urine Catheter - Castellano Streptococcus pneumoniae Antigen (M - Final Laboratory Results 06/15/20 11:58: POC Glucose 184 H 06/15/20 16:40: POC Glucose 211 H 06/15/20 19:54: POC Glucose 315 H 06/16/20 04:25: WBC 6.5, RBC 2.99 L, Hgb 8.6 L, Hct 25.9 L, MCV 86.6, MCH 28.8, MCHC 33.2, RDW Std Deviation 55.2 H, RDW Coeff of Azeem 17.2 H, Plt Count 170, MPV 11.2 06/16/20 04:25: Sodium 140, Potassium 3.8, Chloride 103, Carbon Dioxide 27.0, Anion Gap 10, BUN 56 H, Creatinine 1.87 H, Estim Creat Clear Calc 31.91, Est GFR (MDRD) Af Amer 45 L, Est GFR (MDRD) Non-Af 38 L, BUN/Creatinine Ratio 29.9 H, Glucose 185 H, Calcium 7.9 L, Total Bilirubin 0.40, AST 93 H, ALT 60, Alkaline Phosphatase 47, Total Protein 6.6, Albumin 2.3 L, Globulin 4.3 H, Albumin/Globulin Ratio 0.5 L Current Medications Acetaminophen (Tylenol) 650 mg PO Q6H PRN PRN PRN Reason: Pain Score 1-10/Temp > 100.7 F Albuterol/Ipratropium (Duoneb) 3 ml INHALATION Q4HWA.RT PRN PRN Reason: sob/wheezing Amiodarone HCl (Cordarone) 100 mg PO DAILY [facility] Last Admin: 06/16/20 08:37 Dose: 100 mg Documented by: Amlodipine Besylate (Norvasc) 10 mg PO DAILY [facility] Last Admin: 06/16/20 08:38 Dose: 10 mg Documented by: Apixaban (Eliquis) 5 mg PO BID [facility] Last Admin: 06/16/20 08:38 Dose: 5 mg Documented by: Atorvastatin Calcium (Lipitor) 40 mg PO QHS [facility] Last Admin: 06/15/20 20:12 Dose: 40 mg Documented by: Calcium/Vitamin D (Os-Abiel 500mg + D) 1 tablet PO DAILY [facility] Last Admin: 06/16/20 08:37 Dose: 1 tablet Documented by: Carvedilol (Coreg) 25 mg PO BID [facility] Last Admin: 06/16/20 08:37 Dose: 25 mg Documented by: Dexamethasone Sodium Phosphate (Decadron) 6 mg IV DAILY [facility] Last Admin: 06/16/20 08:36 Dose: 6 mg Documented by: Dextrose (D50w Syringe) 0 gm IV X1 PRN; Protocol PRN Reason: Hypoglycemia Diltiazem HCl (Cardizem Cd) 360 mg PO DAILY [facility] Last Admin: 06/16/20 08:35 Dose: 360 mg Documented by: Duloxetine HCl (Cymbalta) 60 mg PO DAILY [facility] Last Admin: 06/16/20 08:35 Dose: 60 mg Documented by: Furosemide (Lasix) 40 mg PO DAILY@0800 [facility] Last Admin: 06/16/20 08:37 Dose: 40 mg Documented by: Gabapentin (Neurontin) 600 mg PO BID [facility] Last Admin: 06/16/20 08:38 Dose: 600 mg Documented by: Glucagon () 1 mg IM .X1 PRN PRN Reason: Hypoglycemia Guaifenesin (Mucinex) 1,200 mg PO BID [facility] Last Admin: 06/16/20 08:36 Dose: 1,200 mg Documented by: Sodium Chloride () 250 mls @ 15 mls/hr IV .[id number] PRN PRN Reason: Saline Flush Sodium Chloride () 250 mls @ 15 mls/hr IV .[id number] PRN PRN Reason: Additional IVPB Infusion Remdesivir (Investigational) (100 mg/ Sodium Chloride) 250 mls @ 125 mls/hr IV DAILY [facility]; Protocol Stop: 06/18/20 11:59 Last Infusion: 06/15/20 12:48 Dose: Infused Documented by: Piperacillin Sod/Tazobactam (Sod 3.375 gm/ Sodium Chloride) 50 mls @ 12.5 mls/hr IV Q8 [facility] Stop: 06/21/20 22:01 Insulin Human Lispro (Humalog Aditiikpen (Bk)) 0 unit SC [facility]; Protocol Last Admin: 06/16/20 08:36 Dose: 9 u Documented by: Isosorbide Mononitrate (Imdur) 60 mg PO BID [facility] Last Admin: 06/16/20 08:37 Dose: 60 mg Documented by: Lisinopril (Zestril) 40 mg PO DAILY [facility] Last Admin: 06/16/20 08:36 Dose: 40 mg Documented by: Loratadine (Claritin) 10 mg PO QHS [facility] Last Admin: 06/15/20 20:12 Dose: 10 mg Documented by: Multivitamins/Minerals (Multivitamin With Minerals (Bkc)) 1 tablet PO DAILY@0800 [facility] Last Admin: 06/16/20 08:37 Dose: 1 tablet Documented by: Ondansetron HCl (Zofran) 4 mg IV Q8H PRN PRN PRN Reason: NAUSEA/VOMITING Pantoprazole Sodium (Protonix) 20 mg PO DAILY [facility] Last Admin: 06/16/20 08:38 Dose: 20 mg Documented by: Potassium Chloride (K-Dur) 10 meq PO DAILY [facility] Last Admin: 06/16/20 08:37 Dose: 10 meq Documented by: Sodium Chloride () 10 - 40 ml IV UD PRN PRN Reason: SALINE FLUSH Last Admin: 06/16/20 04:26 Dose: 20 ml Documented by: Medical Necessity - Tobacco Use Smoking Status: Former smoker Route of nutrition/ use of supplements: [] Nutritional Intake: [] IV Site: [] Castellano Catheter: [] - Assessment/Plan Antibiotics: [] Assessment/Plan: [] Active and Suspected Problems (Last Reviewed 06/14/20 @ 04:[address] Pedro Ferreira MD) Sepsis (Acute) Severe acute respiratory syndrome coronavirus 2 (SARS-CoV-2) infection ruled out (Acute) COVID-19 virus infection (Acute) Covid with sepsis, acute hypoxic resp failure, lymphopenia, elevated PCT - sx started 06/02, covid pcr (+) 06/06/20. Cont remdesivir. Received plasma. MRSA pcr neg. Cont zosyn for now, plan on 5-6 days total. UAgs neg. On dexamethasone and eliquis. at home also with covid per the pt, improving. Will get sputum cx if he can produce one. Will follow
[2020-06-16 11:31] LABS: Bedside Glucose 295 mg/dL (70-110)
--- NOTE | 2020-06-16 11:52 | PCM.PN.HOSP ---
Patient Problems: Active and Suspected Problems (Last Reviewed 06/14/20 @ 04:[address] Pedro Ferreira MD) Sepsis (Acute) Severe acute respiratory syndrome coronavirus 2 (SARS-CoV-2) infection ruled out (Acute) COVID-19 virus infection (Acute) Reason for Visit: COVID Subjective: BiPAP overnight. Now on high-flow oxygen, which he is tolerating. Paroxysms of cough. Vitals/I&O's: Vital Signs Temp Pulse Resp BP Pulse Ox 35.7 C L 58 L 20 H 115/64 96 06/16/20 06:00 06/16/20 11:00 06/16/20 11:00 06/16/20 11:00 06/16/20 11:00 Oxygen Flow Rate (L/min) 60 Oxygen Delivery Method Nasal Cannula Weight: 89.2 kg Body Mass Index (BMI) 30.2 Finger Stick Blood Glucose 104 Intake and Output for Last 24 Hours 06/14/20 06/15/20 06/16/20 23:59 23:59 23:59 Intake Total 1471.0625 / 1471.0625 2370 / 2490 530 / 530 Output Total 1800 / 1950 1325 / 1525 975 / 975 Balance -328.9375 / -478.9375 1045 / 965 -445 / -445 General: Alert, No apparent distress HEENT: Atraumatic, Normocephalic Oral: Moist Mucosa, No Gingival or Mucosal Lesions/ Ulcerations Neck: No Nodes, Thyroid Normal Size and Texture Lungs: Clear to auscultation, Normal air movement, No rhonchi, No wheeze Cardiovascular: Regular rate, Regular Rhythm, Normal S1, Normal S2, No murmurs Abdomen: Bowel Sounds Present, Soft, Non Tender, Non-Distended, No Hepato-splenomegaly Extremities: No edema, No Calf Tenderness Skin: No rashes, No breakdown Musculoskeletal: No Tenderness to Palpation of Joints or Extremities, No Muscle Wasting Psych/Mental Status: Normal Affect, Appropriate Microbiology Past 72 Hours 06/14/20 02:40 Urine Catheter - Catheter Urine Culture - Final Culture exhibits no growth. 06/14/20 02:40 Urine Catheter - Castellano Legionella Antigen - Final 06/14/20 02:40 Urine Catheter - Castellano Streptococcus pneumoniae Antigen (M - Final Laboratory Results 06/15/20 11:58: POC Glucose 184 H 06/15/20 16:40: POC Glucose 211 H 06/15/20 19:54: POC Glucose 315 H 06/16/20 04:25: WBC 6.5, RBC 2.99 L, Hgb 8.6 L, Hct 25.9 L, MCV 86.6, MCH 28.8, MCHC 33.2, RDW Std Deviation 55.2 H, RDW Coeff of Azeem 17.2 H, Plt Count 170, MPV 11.2 06/16/20 04:25: Sodium 140, Potassium 3.8, Chloride 103, Carbon Dioxide 27.0, Anion Gap 10, BUN 56 H, Creatinine 1.87 H, Estim Creat Clear Calc 31.91, Est GFR (MDRD) Af Amer 45 L, Est GFR (MDRD) Non-Af 38 L, BUN/Creatinine Ratio 29.9 H, Glucose 185 H, Calcium 7.9 L, Total Bilirubin 0.40, AST 93 H, ALT 60, Alkaline Phosphatase 47, Total Protein 6.6, Albumin 2.3 L, Globulin 4.3 H, Albumin/Globulin Ratio 0.5 L 06/16/20 11:20: POC Glucose 295 H Current Medications Acetaminophen (Tylenol) 650 mg PO Q6H PRN PRN PRN Reason: Pain Score 1-10/Temp > 100.7 F Albuterol/Ipratropium (Duoneb) 3 ml INHALATION Q4HWA.RT PRN PRN Reason: sob/wheezing Amiodarone HCl (Cordarone) 100 mg PO DAILY [facility] Last Admin: 06/16/20 08:37 Dose: 100 mg Documented by: Amlodipine Besylate (Norvasc) 10 mg PO DAILY [facility] Last Admin: 06/16/20 08:38 Dose: 10 mg Documented by: Apixaban (Eliquis) 5 mg PO BID [facility] Last Admin: 06/16/20 08:38 Dose: 5 mg Documented by: Atorvastatin Calcium (Lipitor) 40 mg PO QHS [facility] Last Admin: 06/15/20 20:12 Dose: 40 mg Documented by: Calcium/Vitamin D (Os-Abiel 500mg + D) 1 tablet PO DAILY [facility] Last Admin: 06/16/20 08:37 Dose: 1 tablet Documented by: Carvedilol (Coreg) 25 mg PO BID [facility] Last Admin: 06/16/20 08:37 Dose: 25 mg Documented by: Dexamethasone Sodium Phosphate (Decadron) 6 mg IV DAILY [facility] Last Admin: 06/16/20 08:36 Dose: 6 mg Documented by: Dextrose (D50w Syringe) 0 gm IV X1 PRN; Protocol PRN Reason: Hypoglycemia Diltiazem HCl (Cardizem Cd) 360 mg PO DAILY [facility] Last Admin: 06/16/20 08:35 Dose: 360 mg Documented by: Duloxetine HCl (Cymbalta) 60 mg PO DAILY [facility] Last Admin: 06/16/20 08:35 Dose: 60 mg Documented by: Furosemide (Lasix) 40 mg PO DAILY@0800 [facility] Last Admin: 06/16/20 08:37 Dose: 40 mg Documented by: Gabapentin (Neurontin) 600 mg PO BID [facility] Last Admin: 06/16/20 08:38 Dose: 600 mg Documented by: Glucagon () 1 mg IM .X1 PRN PRN Reason: Hypoglycemia Guaifenesin (Mucinex) 1,200 mg PO BID [facility] Last Admin: 06/16/20 08:36 Dose: 1,200 mg Documented by: Sodium Chloride () 250 mls @ 15 mls/hr IV .[id number] PRN PRN Reason: Saline Flush Sodium Chloride () 250 mls @ 15 mls/hr IV .[id number] PRN PRN Reason: Additional IVPB Infusion Remdesivir (Investigational) (100 mg/ Sodium Chloride) 250 mls @ 125 mls/hr IV DAILY [facility]; Protocol Stop: 06/18/20 11:59 Last Admin: 06/16/20 11:39 Dose: 125 mls/hr Documented by: Piperacillin Sod/Tazobactam (Sod 3.375 gm/ Sodium Chloride) 50 mls @ 12.5 mls/hr IV Q8 [facility] Stop: 06/21/20 22:01 Insulin Human Lispro (Humalog Kwikpen (Bkc)) 0 unit SC ACHS [facility]; Protocol Last Admin: 06/16/20 11:39 Dose: 9 u Documented by: Isosorbide Mononitrate (Imdur) 60 mg PO BID [facility] Last Admin: 06/16/20 08:37 Dose: 60 mg Documented by: Lisinopril (Zestril) 40 mg PO DAILY [facility] Last Admin: 06/16/20 08:36 Dose: 40 mg Documented by: Loratadine (Claritin) 10 mg PO QHS [facility] Last Admin: 06/15/20 20:12 Dose: 10 mg Documented by: Multivitamins/Minerals (Multivitamin With Minerals (Bkc)) 1 tablet PO DAILY@0800 [facility] Last Admin: 06/16/20 08:37 Dose: 1 tablet Documented by: Ondansetron HCl (Zofran) 4 mg IV Q8H PRN PRN PRN Reason: NAUSEA/VOMITING Pantoprazole Sodium (Protonix) 20 mg PO DAILY [facility] Last Admin: 06/16/20 08:38 Dose: 20 mg Documented by: Potassium Chloride (K-Dur) 10 meq PO DAILY [facility] Last Admin: 06/16/20 08:37 Dose: 10 meq Documented by: Sodium Chloride () 10 - 40 ml IV UD PRN PRN Reason: SALINE FLUSH Last Admin: 06/16/20 04:26 Dose: 20 ml Documented by: STROKE Vital Signs/Narrative: Vital Signs Pulse Resp BP Pulse Ox 06/16/20 11:00 58 L 20 H 115/64 96 06/16/20 10:00 58 L 18 119/62 98 06/16/20 09:00 67 19 H 124/66 H 92 06/16/20 08:00 63 18 141/73 H 95 Medical Necessity - Tobacco Use Smoking Status: Former smoker Assessment/Plan All Active Problems (Last Reviewed 06/14/20 @ 04:[address] Pedro Ferreira MD) Sepsis (Acute) Severe acute respiratory syndrome coronavirus 2 (SARS-CoV-2) infection ruled out (Acute) COVID-19 virus infection (Acute) Chest tightness (Resolved) Hypertensive urgency (Resolved) Left wrist pain (Resolved) Syncopal episodes (Resolved) Ureteral calculus, right (Resolved) 1. COVID-19 infection on remdesivir, dexamethasone convalescent plasma order likely viral pneumonia +/- bacterial pneumonia. On Pip/tazo ID following 2. Sepsis POA 2/2 above. follow up cultures 3. acute hypoxic respiratory failure 2/2 above weaned down to high-flow oxygen mgmt per [facility] 4. Hypoglycemia resolved 2/2 above and glimepiride hold glimepiride now hyperglycemic. on SSI. 5. Afib on amiodarone, carveilol, apixaban 6. VTE prophylaxis: already anticoagulated. Inpatient E&M: 30869 Subs Hosp L2
[2020-06-16 17:50] LABS: Bedside Glucose 232 mg/dL (70-110)
[2020-06-16] MEDS: Atorvastatin Calcium 40 MG Tablet PO (22:13)
[2020-06-16] MEDS: Loratadine 10 MG Tablet PO (22:13)
[2020-06-16 22:30] LABS: Bedside Glucose 255 mg/dL (70-110)
[2020-06-17] VITALS (35 sets, daily range): BP systolic 97–139; BP diastolic 56–82; PULSE 52–73; RESP 12–29; TEMP 35.8–36.2; O2SAT 70–99
[2020-06-17 05:35] LABS: Hematocrit 25.8 % (40-54); Hemoglobin 8.3 g/dL (13.0-16.5); Mean Corp Hgb Conc 32.2 g/dL (32-36); Mean Corpuscular Volume 87.2 fL (80-94); Mean Platelet Vol. 11.4 fl (6.2-12.0); Platelet Count 212 K/mm3 (150-450); RBC Distribution Width CV 17.4 % (11.6-14.6); RBC Distribution Width SD 55.8 fl (35.1-43.9); Red Blood Count 2.96 M/mm3 (4.6-6.2)
[2020-06-17 05:51] LABS: ALB/GLOB Ratio 0.5 RATIO (0.9-2.4); AST(SGOT) 107 U/L (15-37); Alanine Aminotransfer ALT/SGPT 92 U/L (16-61); Albumin, Serum 2.1 g/dL (3.2-5.0); Alkaline Phosphatase 55 U/L (45-117); Anion Gap 6 (5-15); BUN 54 mg/dL (7-18); Chloride 105 mmol/L (98-107); Creatinine, Serum 1.74 mg/dL (0.70-1.30); EST Glomerular Filtration Rate 41 mL/min (>60); Est Glom Filt Rate - Afr Amer 49 mL/min (>60); Globulin 4.2 g/dL (2.2-4.2); Glucose 269 mg/dL (74-106); Potassium 3.7 mmol/L (3.5-5.1); Protein, Total 6.3 g/dL (6.4-8.2); Sodium Level 139 mmol/L (136-145)
--- NOTE | 2020-06-17 06:53 | PCM.PN.INT ---
Subjective: Patient did okay overnight. Patient continues to have a cough with variable production. Patient states this limits his ability to use the BiPAP. Patient has been requesting high flow nasal cannula for most of the evening. Patient does report some body aches. General: Alert, Oriented x3, Cooperative, No apparent distress, - - Mild conversational dyspnea. HEENT: Atraumatic, PERRLA, EOMI, Normocephalic, - - High flow nasal cannula in place. No epistaxis. Oral: No Gingival or Mucosal Lesions/ Ulcerations, Dry Mucosa Neck: Supple, No JVD, No Nodes, Trachea Midline Lungs: No rhonchi, No rales, Diminished, Wheezes - Sporadic, - - Symmetric expansion. No dullness to percussion. Cardiovascular: Regular rate, Regular Rhythm, Normal S1, Normal S2, No murmurs, No rub noted, No Gallop Abdomen: Bowel Sounds Present, Soft, Non Tender, Non-Distended, Obese Extremities: No clubbing, No cyanosis, No edema, Capillary Refill Less than 3 Seconds Skin: - - No change compared to previous Musculoskeletal: No Tenderness to Palpation of Joints or Extremities Lymphatic: No Cervical, Supraclavicular, or Inguinal Adenopathy Neurological: Cranial nerves II-XII grossly intact, Neuro grossly intact, Motor Exam 5/5 strength throughout Psych/Mental Status: Alert and oriented to time, place, person, mood and affect Vital Signs Temp Pulse Resp BP Pulse Ox 35.9 C L 58 L 21 H 112/61 90 06/17/20 04:00 06/17/20 06:00 06/17/20 06:00 06/17/20 06:00 06/17/20 06:00 Oxygen Flow Rate (L/min) 60 Oxygen Delivery Method Nasal Cannula Weight: 89.2 kg Body Mass Index (BMI) 30.2 Finger Stick Blood Glucose 104 Intake and Output for Last 24 Hours 06/15/20 06/16/20 06/17/20 23:59 23:59 23:59 Intake Total 2370 / 2490 1240 / 1240 50 / 50 Output Total 1325 / 1525 2375 / 2550 675 / 675 Balance 1045 / 965 -1135 / -1310 -625 / -625 Labs (Last 48 Hours) 06/15/20 06/15/20 06/15/20 11:58 16:40 19:54 WBC RBC Hgb Hct MCV MCH MCHC RDW Std Deviation RDW Coeff of Azeem Plt Count MPV Sodium Potassium Chloride Carbon Dioxide Anion Gap BUN Creatinine Estim Creat Clear Calc Est GFR (MDRD) Af Amer Est GFR (MDRD) Non-Af BUN/Creatinine Ratio Glucose Calcium Total Bilirubin AST ALT Alkaline Phosphatase Total Protein Albumin Globulin Albumin/Globulin Ratio POC Glucose 184 H 211 H 315 H 06/16/20 06/16/20 06/16/20 04:25 04:25 11:20 WBC 6.5 RBC 2.99 L Hgb 8.6 L Hct 25.9 L MCV 86.6 MCH 28.8 MCHC 33.2 RDW Std Deviation 55.2 H RDW Coeff of Azeem 17.2 H Plt Count 170 MPV 11.2 Sodium 140 Potassium 3.8 Chloride 103 Carbon Dioxide 27.0 Anion Gap 10 BUN 56 H Creatinine 1.87 H Estim Creat Clear Calc 31.91 Est GFR (MDRD) Af Amer 45 L Est GFR (MDRD) Non-Af 38 L BUN/Creatinine Ratio 29.9 H Glucose 185 H Calcium 7.9 L Total Bilirubin 0.40 AST 93 H ALT 60 Alkaline Phosphatase 47 Total Protein 6.6 Albumin 2.3 L Globulin 4.3 H Albumin/Globulin Ratio 0.5 L POC Glucose 295 H 06/16/20 06/16/20 06/17/20 16:45 22:08 05:20 WBC 8.0 RBC 2.96 L Hgb 8.3 L Hct 25.8 L MCV 87.2 MCH 28.0 MCHC 32.2 RDW Std Deviation 55.8 H RDW Coeff of Azeem 17.4 H Plt Count 212 MPV 11.4 Sodium Potassium Chloride Carbon Dioxide Anion Gap BUN Creatinine Estim Creat Clear Calc Est GFR (MDRD) Af Amer Est GFR (MDRD) Non-Af BUN/Creatinine Ratio Glucose Calcium Total Bilirubin AST ALT Alkaline Phosphatase Total Protein Albumin Globulin Albumin/Globulin Ratio POC Glucose 232 H 255 H 06/17/20 05:20 WBC RBC Hgb Hct MCV MCH MCHC RDW Std Deviation RDW Coeff of Azeem Plt Count MPV Sodium 139 Potassium 3.7 Chloride 105 Carbon Dioxide 28.0 Anion Gap 6 BUN 54 H Creatinine 1.74 H Estim Creat Clear Calc 34.30 Est GFR (MDRD) Af Amer 49 L Est GFR (MDRD) Non-Af 41 L BUN/Creatinine Ratio 31.0 H Glucose 269 H Calcium 8.0 L Total Bilirubin 0.40 AST 107 H ALT 92 H Alkaline Phosphatase 55 Total Protein 6.3 L Albumin 2.1 L Globulin 4.2 Albumin/Globulin Ratio 0.5 L POC Glucose Microbiology 06/14/20 01:15 Blood Culture (Wb) #2 - Right Hand Blood Culture - Preliminary No growth in 48 hours. 06/14/20 01:00 Blood Culture (Wb) - Anticubital Left Blood Culture - Preliminary No growth in 48 hours. 06/14/20 02:40 Urine Catheter - Catheter Urine Culture - Final Culture exhibits no growth. Medical Necessity - Tobacco Use Smoking Status: Former smoker Assessment/Plan All Active Problems (Last Reviewed 06/14/20 @ 04:[address] Pedro Ferreira MD) Sepsis (Acute) Severe acute respiratory syndrome coronavirus 2 (SARS-CoV-2) infection ruled out (Acute) COVID-19 virus infection (Acute) Chest tightness (Resolved) Hypertensive urgency (Resolved) Left wrist pain (Resolved) Syncopal episodes (Resolved) Ureteral calculus, right (Resolved) RECOMMENDATIONS: 1. Continue high flow nasal cannula with BiPAP with sleep and rescue as indicated 2. Continue Eliquis for anticoagulation, Decadron for 10 days and Remdisivir protocol 3. Increase activity as tolerated 4. Continue PT/OT along with dietary measures to preserve strength 5. Attempt volume restriction. No Lasix given negative fluid balance IMPRESSIONS: 1. Acute hypoxic respiratory failure secondary to COVID-19 Patient currently tolerating BiPAP therapy with sleep only. We will continue to monitor. Patient is on anticoagulation at baseline with Eliquis therapy, so this is been continued. Patient has received convalescent serum. Antiretroviral per infectious disease. Continue supportive care. Patient does have pulmonary hypertension at baseline, so volume restriction will be important long-term. Patient will be given a dose of Lasix intermittently to attempt euvolemia for hospitalization 2. Severe sepsis secondary to viral pneumonia Patient does have documented COVID-19. However, patient also has an elevated pro calcitonin, so I believe it is reasonable to continue with empiric antibiotics pending culture data. Patient has had normalization of leukocytosis with antibiotics. Patient has remained hemodynamically stable at this time. Patient does have a history of paroxysmal A. fib, so we will need to watch closely. Infectious disease is following. 3. CKD stage III BUN and creatinine appear to be at baseline at this time. Patient is tolerating current situation well. We will have to watch closely as patient will be at risk for complications of renal failure. Urine output is acceptable at this time. Replete electrolytes as indicated. 4. Hypoglycemia/diabetes mellitus Patient now having some episodes with elevated blood sugars, likely secondary to Decadron. Continue to monitor blood sugars. Patient may require increased sliding scale insulin in the near term. Variable p.o. intake at this time. Continue blood sugar checks for diabetes mellitus. Could add a low dose of basal insulin 5. History of A. fib/diastolic congestive heart failure/hypertension Patient blood pressure appears to be doing well at this time. We will hold hydralazine. Some concern of noncompliance as an outpatient leading to multiple medications. Rate is controlled at this time. 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 6. Advanced age/rheumatoid/dementia/SUPA Complicates care, management, recovery and prognosis. Patient should continue CPAP at 15 cm of water at baseline once need for BiPAP has resolved. Defer to infectious disease on continuation of baseline immunosuppression. Inpatient E&M: 29323 Subs Hosp L3
[2020-06-17] MEDS: Insulin Lispro 100 UNIT/ML INSULN.PEN SC ×4 (09:05→21:23)
[2020-06-17] MEDS: Furosemide 40 MG Tablet PO (09:08)
[2020-06-17] MEDS: Calcium Carb/Vitamin D 1 TABLET Tablet PO (09:08)
[2020-06-17] MEDS: Gabapentin 600 MG Tablet PO ×2 (09:08→21:24)
[2020-06-17] MEDS: APIXABAN 5 MG TABLET PO ×2 (09:08→21:24)
[2020-06-17] MEDS: Multivitamins,Ther W-Minerals Tablet 1 TABLET PO (09:09)
[2020-06-17] MEDS: Amiodarone 200 MG Tablet 100 MG PO (09:09)
[2020-06-17] MEDS: guaiFENesin 1,200 MG Tablet 1200 MG PO ×2 (09:09→21:24)
[2020-06-17] MEDS: amLODIPine 10 MG Tablet PO (09:09)
[2020-06-17] MEDS: DULoxetine Hcl 60 MG Capsule PO (09:09)
[2020-06-17] MEDS: Pantoprazole Sodium 20 MG Tablet PO (09:09)
[2020-06-17] MEDS: Isosorbide Mononitrate 60 MG Tablet PO ×2 (09:10→21:24)
[2020-06-17 09:26] LABS: Bedside Glucose 209 mg/dL (70-110)
--- NOTE | 2020-06-17 10:22 | CASEMGMT ---
This RN CM participated in ICU multidisciplinary rounds. Pt is still on airvo during the day and bipap at bedtime at this time but has difficulty keeping the bipap on at night d/t frequent coughing. Pt has been up with therapy as SBA but cannot ambulate too far d/t airvo tubing. Therapy is recommending WW for pt at discharge. CM to follow for PT/OT recommendations and any further discharge planning/needs. Per Dr. Modi, pt has at least 2 more days to watch for possible COVID complications and improvement in respiratory status. SStaten RN CM
--- NOTE | 2020-06-17 10:22 | CPS ---
This RT called to pt's room to placed Bipap back on pt due to SpO2 60s-70s and not recovering on Airvo after having multiple coughing fits. On way to place pt back on Bipap RN called to hurry pt was in the 50s. Once I arrived in pt's room, pt was very agitated and wanted everything off of him and that he couldn't breathe. I reassured pt that the Bipap will help him breathe and make him feel better. After talking with pt, was able to place Bipap on pt and get him calmed down. Pt is resting comfortably on Bipap and SpO2 98%.
--- NOTE | 2020-06-17 13:06 | PN_ITS ---
Patient Problems: Active and Suspected Problems (Last Reviewed 06/14/20 @ 04:[address] Pedro Ferreira MD) Sepsis (Acute) Severe acute respiratory syndrome coronavirus 2 (SARS-CoV-2) infection ruled out (Acute) COVID-19 virus infection (Acute) Reason for Visit: COVID-19 Subjective: Paroxysms of cough with nausea. On BiPAP Vitals/I&O's: Vital Signs Temp Pulse Resp BP Pulse Ox 35.8 C L 58 L 29 H 112/56 L 98 06/17/20 10:00 06/17/20 10:18 06/17/20 10:18 06/17/20 10:00 06/17/20 10:18 Oxygen Flow Rate (L/min) 60 Oxygen Delivery Method Bi-pap Weight: 89.2 kg Body Mass Index (BMI) 30.2 Finger Stick Blood Glucose 104 Intake and Output for Last 24 Hours 06/15/20 06/16/20 06/17/20 23:59 23:59 23:59 Intake Total 2370 / 2490 1240 / 1240 50 / 50 Output Total 1325 / 1525 2375 / 2550 1000 / 1000 Balance 1045 / 965 -1135 / -1310 -950 / -950 General: Alert, No apparent distress HEENT: Atraumatic, Normocephalic Oral: Moist Mucosa, No Gingival or Mucosal Lesions/ Ulcerations Neck: No Nodes, Thyroid Normal Size and Texture Lungs: Clear to auscultation, Normal air movement, No rhonchi, No wheeze Cardiovascular: Regular rate, Regular Rhythm, Normal S1, Normal S2 Abdomen: Bowel Sounds Present, Soft, Non Tender, Non-Distended, No Hepato- splenomegaly Extremities: No edema, No Calf Tenderness Skin: No rashes, No breakdown Psych/Mental Status: Normal Affect, Appropriate Microbiology Past 72 Hours 06/16/20 16:54 Sputum, Expectorated/Coughed Gram Stain - Final 06/16/20 16:54 Sputum, Expectorated/Coughed Respiratory Culture - Preliminary Appears to be normal respiratory montserrat. Further studies to follow. 06/14/20 01:15 Blood Culture (Wb) #2 - Right Hand Blood Culture - Preliminary No growth in 48 hours. 06/14/20 01:00 Blood Culture (Wb) - Anticubital Left Blood Culture - Preliminary No growth in 48 hours. 06/14/20 02:40 Urine Catheter - Catheter Urine Culture - Final Culture exhibits no growth. Laboratory Results 06/16/20 16:45: POC Glucose 232 H 06/16/20 22:08: POC Glucose 255 H 06/17/20 05:20: WBC 8.0, RBC 2.96 L, Hgb 8.3 L, Hct 25.8 L, MCV 87.2, MCH 28.0, MCHC 32.2, RDW Std Deviation 55.8 H, RDW Coeff of Azeem 17.4 H, Plt Count 212, MPV 11.4 06/17/20 05:20: Sodium 139, Potassium 3.7, Chloride 105, Carbon Dioxide 28.0, Anion Gap 6, BUN 54 H, Creatinine 1.74 H, Estim Creat Clear Calc 34.30, Est GFR (MDRD) Af Amer 49 L, Est GFR (MDRD) Non-Af 41 L, BUN/Creatinine Ratio 31.0 H, Glucose 269 H, Calcium 8.0 L, Total Bilirubin 0.40, AST 107 H, ALT 92 H, Alkaline Phosphatase 55, Total Protein 6.3 L, Albumin 2.1 L, Globulin 4.2, Albumin/Globulin Ratio 0.5 L 06/17/20 08:55: POC Glucose 209 H Current Medications Acetaminophen (Tylenol) 650 mg PO Q6H PRN PRN PRN Reason: Pain Score 1-10/Temp > 100.7 F Albuterol/Ipratropium (Duoneb) 3 ml INHALATION Q4HWA.RT PRN PRN Reason: sob/wheezing Amiodarone HCl (Cordarone) 100 mg PO DAILY [facility] Last Admin: 06/17/20 09:09 Dose: 100 mg Documented by: Amlodipine Besylate (Norvasc) 10 mg PO DAILY [facility] Last Admin: 06/17/20 09:09 Dose: 10 mg Documented by: Apixaban (Eliquis) 5 mg PO BID [facility] Last Admin: 06/17/20 09:08 Dose: 5 mg Documented by: Atorvastatin Calcium (Lipitor) 40 mg PO QHS [facility] Last Admin: 06/16/20 22:13 Dose: 40 mg Documented by: Calcium/Vitamin D (Os-Abiel 500mg + D) 1 tablet PO DAILY [facility] Last Admin: 06/17/20 09:08 Dose: 1 tablet Documented by: Carvedilol (Coreg) 25 mg PO BID [facility] Last Admin: 06/16/20 22:13 Dose: 25 mg Documented by: Dexamethasone Sodium Phosphate (Decadron) 6 mg IV DAILY [facility] Last Admin: 06/16/20 08:36 Dose: 6 mg Documented by: Dextrose (D50w Syringe) 0 gm IV X1 PRN; Protocol PRN Reason: Hypoglycemia Diltiazem HCl (Cardizem Cd) 360 mg PO DAILY [facility] Last Admin: 06/16/20 08:35 Dose: 360 mg Documented by: Duloxetine HCl (Cymbalta) 60 mg PO DAILY [facility] Last Admin: 06/17/20 09:09 Dose: 60 mg Documented by: Furosemide (Lasix) 40 mg PO DAILY@0800 [facility] Last Admin: 06/17/20 09:08 Dose: 40 mg Documented by: Gabapentin (Neurontin) 600 mg PO BID [facility] Last Admin: 06/17/20 09:08 Dose: 600 mg Documented by: Glucagon () 1 mg IM .X1 PRN PRN Reason: Hypoglycemia Guaifenesin (Mucinex) 1,200 mg PO BID [facility] Last Admin: 06/17/20 09:09 Dose: 1,200 mg Documented by: Sodium Chloride () 250 mls @ 15 mls/hr IV .[id number] PRN PRN Reason: Saline Flush Sodium Chloride () 250 mls @ 15 mls/hr IV .[id number] PRN PRN Reason: Additional IVPB Infusion Remdesivir (Investigational) (100 mg/ Sodium Chloride) 250 mls @ 125 mls/hr IV DAILY [facility]; Protocol Stop: 06/18/20 11:59 Last Infusion: 06/16/20 14:04 Dose: Infused Documented by: Piperacillin Sod/Tazobactam (Sod 3.375 gm/ Sodium Chloride) 50 mls @ 12.5 mls/hr IV Q8 [facility] Stop: 06/21/20 22:01 Last Admin: 06/17/20 05:25 Dose: 12.5 mls/hr Documented by: Insulin Glargine (Lantus (Bkc)) 10 units SC DAILY [facility] Insulin Human Lispro (Humalog Kwikpen (Bk)) 0 unit SC ACHS [facility]; Protocol Last Admin: 06/17/20 09:05 Dose: 3 u Documented by: Isosorbide Mononitrate (Imdur) 60 mg PO BID [facility] Last Admin: 06/17/20 09:10 Dose: 60 mg Documented by: Lisinopril (Zestril) 40 mg PO DAILY [facility] Last Admin: 06/16/20 08:36 Dose: 40 mg Documented by: Loratadine (Claritin) 10 mg PO QHS [facility] Last Admin: 06/16/20 22:13 Dose: 10 mg Documented by: Multivitamins/Minerals (Multivitamin With Minerals (Bkc)) 1 tablet PO DAILY@0800 [facility] Last Admin: 06/17/20 09:09 Dose: 1 tablet Documented by: Ondansetron HCl (Zofran) 4 mg IV Q8H PRN PRN PRN Reason: NAUSEA/VOMITING Pantoprazole Sodium (Protonix) 20 mg PO DAILY [facility] Last Admin: 06/17/20 09:09 Dose: 20 mg Documented by: Potassium Chloride (K-Dur) 10 meq PO DAILY [facility] Last Admin: 06/17/20 09:08 Dose: 10 meq Documented by: Sodium Chloride () 10 - 40 ml IV UD PRN PRN Reason: SALINE FLUSH Last Admin: 06/16/20 22:14 Dose: 20 ml Documented by: STROKE Vital Signs/Narrative: Vital Signs Temp Pulse Resp BP Pulse Ox 06/17/20 10:18 58 L 29 H 98 06/17/20 10:00 35.8 C L 64 26 H 112/56 L 70 06/17/20 09:42 60 20 H 90 Medical Necessity - Tobacco Use Smoking Status: Former smoker Assessment/Plan All Active Problems (Last Reviewed 06/14/20 @ 04:[address] Pedro Ferreira MD) Sepsis (Acute) Severe acute respiratory syndrome coronavirus 2 (SARS-CoV-2) infection ruled out (Acute) COVID-19 virus infection (Acute) Chest tightness (Resolved) Hypertensive urgency (Resolved) Left wrist pain (Resolved) Syncopal episodes (Resolved) Ureteral calculus, right (Resolved) 1. COVID-19 infection * on remdesivir, dexamethasone * convalescent plasma order * likely viral pneumonia +/- bacterial pneumonia. On Pip/tazo * ID following 2. Sepsis * POA * 2/2 above. * follow up cultures 3. acute hypoxic respiratory failure * 2/2 above * still requiring BiPAP * mgmt per CCM 4. Hypoglycemia * resolved * 2/2 above and glimepiride * hold glimepiride * now hyperglycemic. on SSI. 5. Afib * on amiodarone, carveilol, apixaban 6. VTE prophylaxis: already anticoagulated. Inpatient E&M: 50373 Subs Hosp L2
[2020-06-17] MEDS: dexAMETHasone 10 MG/ML Vial 6 MG IV (13:30)
[2020-06-17] MEDS: 0.9% Saline Lock 10 ML Syringe IV (13:36)
--- NOTE | 2020-06-17 13:46 | PCM.PN.ID ---
Patient Problems: Active and Suspected Problems (Last Reviewed 06/14/20 @ 04:[address] Pedro Ferreira MD) Sepsis (Acute) Severe acute respiratory syndrome coronavirus 2 (SARS-CoV-2) infection ruled out (Acute) COVID-19 virus infection (Acute) Subjective: No fever, not tolerating airvo, on NIPPV now, sleeping - Physical Exam Vitals/I&O's: Vital Signs Temp Pulse Resp BP Pulse Ox 96.5 F L 58 L 29 H 112/56 L 98 06/17/20 10:00 06/17/20 10:18 06/17/20 10:18 06/17/20 10:00 06/17/20 10:18 Oxygen Flow Rate (L/min) 60 Oxygen Delivery Method Bi-pap Weight: 89.2 kg Body Mass Index (BMI) 30.2 Finger Stick Blood Glucose 104 Intake and Output for Last 24 Hours 06/15/20 06/16/20 06/17/20 23:59 23:59 23:59 Intake Total 2370 / 2490 1240 / 1240 50 / 50 Output Total 1325 / 1525 2375 / 2550 1000 / 1000 Balance 1045 / 965 -1135 / -1310 -950 / -950 General: No apparent distress Lungs: Clear to auscultation, Normal air movement Cardiovascular: Regular rate, Regular Rhythm Abdomen: Soft, Non Tender, Non-Distended Skin: No rashes Microbiology Past 72 Hours 06/16/20 16:54 Sputum, Expectorated/Coughed Gram Stain - Final 06/16/20 16:54 Sputum, Expectorated/Coughed Respiratory Culture - Preliminary Appears to be normal respiratory montserrat. Further studies to follow. 06/14/20 01:15 Blood Culture (Wb) #2 - Right Hand Blood Culture - Preliminary No growth in 48 hours. 06/14/20 01:00 Blood Culture (Wb) - Anticubital Left Blood Culture - Preliminary No growth in 48 hours. 06/14/20 02:40 Urine Catheter - Catheter Urine Culture - Final Culture exhibits no growth. Laboratory Results 06/16/20 16:45: POC Glucose 232 H 06/16/20 22:08: POC Glucose 255 H 06/17/20 05:20: WBC 8.0, RBC 2.96 L, Hgb 8.3 L, Hct 25.8 L, MCV 87.2, MCH 28.0, MCHC 32.2, RDW Std Deviation 55.8 H, RDW Coeff of Azeem 17.4 H, Plt Count 212, MPV 11.4 06/17/20 05:20: Sodium 139, Potassium 3.7, Chloride 105, Carbon Dioxide 28.0, Anion Gap 6, BUN 54 H, Creatinine 1.74 H, Estim Creat Clear Calc 34.30, Est GFR (MDRD) Af Amer 49 L, Est GFR (MDRD) Non-Af 41 L, BUN/Creatinine Ratio 31.0 H, Glucose 269 H, Calcium 8.0 L, Total Bilirubin 0.40, AST 107 H, ALT 92 H, Alkaline Phosphatase 55, Total Protein 6.3 L, Albumin 2.1 L, Globulin 4.2, Albumin/Globulin Ratio 0.5 L 06/17/20 08:55: POC Glucose 209 H Current Medications Acetaminophen (Tylenol) 650 mg PO Q6H PRN PRN PRN Reason: Pain Score 1-10/Temp > 100.7 F Albuterol/Ipratropium (Duoneb) 3 ml INHALATION Q4HWA.RT PRN PRN Reason: sob/wheezing Amiodarone HCl (Cordarone) 100 mg PO DAILY [facility] Last Admin: 06/17/20 09:09 Dose: 100 mg Documented by: Amlodipine Besylate (Norvasc) 10 mg PO DAILY [facility] Last Admin: 06/17/20 09:09 Dose: 10 mg Documented by: Apixaban (Eliquis) 5 mg PO BID [facility] Last Admin: 06/17/20 09:08 Dose: 5 mg Documented by: Atorvastatin Calcium (Lipitor) 40 mg PO QHS [facility] Last Admin: 06/16/20 22:13 Dose: 40 mg Documented by: Calcium/Vitamin D (Os-Abiel 500mg + D) 1 tablet PO DAILY [facility] Last Admin: 06/17/20 09:08 Dose: 1 tablet Documented by: Carvedilol (Coreg) 25 mg PO BID [facility] Last Admin: 06/16/20 22:13 Dose: 25 mg Documented by: Dexamethasone Sodium Phosphate (Decadron) 6 mg IV DAILY [facility] Last Admin: 06/17/20 13:30 Dose: 6 mg Documented by: Dextrose (D50w Syringe) 0 gm IV X1 PRN; Protocol PRN Reason: Hypoglycemia Diltiazem HCl (Cardizem Cd) 360 mg PO DAILY [facility] Last Admin: 06/16/20 08:35 Dose: 360 mg Documented by: Duloxetine HCl (Cymbalta) 60 mg PO DAILY [facility] Last Admin: 06/17/20 09:09 Dose: 60 mg Documented by: Furosemide (Lasix) 40 mg PO DAILY@0800 [facility] Last Admin: 06/17/20 09:08 Dose: 40 mg Documented by: Gabapentin (Neurontin) 600 mg PO BID [facility] Last Admin: 06/17/20 09:08 Dose: 600 mg Documented by: Glucagon () 1 mg IM .X1 PRN PRN Reason: Hypoglycemia Guaifenesin (Mucinex) 1,200 mg PO BID [facility] Last Admin: 06/17/20 09:09 Dose: 1,200 mg Documented by: Sodium Chloride () 250 mls @ 15 mls/hr IV .[id number] PRN PRN Reason: Saline Flush Sodium Chloride () 250 mls @ 15 mls/hr IV .[id number] PRN PRN Reason: Additional IVPB Infusion Remdesivir (Investigational) (100 mg/ Sodium Chloride) 250 mls @ 125 mls/hr IV DAILY [facility]; Protocol Stop: 06/18/20 11:59 Last Admin: 06/17/20 13:31 Dose: 125 mls/hr Documented by: Piperacillin Sod/Tazobactam (Sod 3.375 gm/ Sodium Chloride) 50 mls @ 12.5 mls/hr IV Q8 [facility] Stop: 06/18/20 22:01 Last Admin: 06/17/20 05:25 Dose: 12.5 mls/hr Documented by: Insulin Glargine (Lantus (Bkc)) 10 units SC DAILY [facility] Last Admin: 06/17/20 13:31 Dose: Not Given Documented by: Insulin Human Lispro (Humalog Kwikpen ([facility])) 0 unit SC ACHS [facility]; Protocol Last Admin: 06/17/20 13:34 Dose: 3 u Documented by: Isosorbide Mononitrate (Imdur) 60 mg PO BID [facility] Last Admin: 06/17/20 09:10 Dose: 60 mg Documented by: Lisinopril (Zestril) 40 mg PO DAILY [facility] Last Admin: 06/16/20 08:36 Dose: 40 mg Documented by: Loratadine (Claritin) 10 mg PO QHS [facility] Last Admin: 06/16/20 22:13 Dose: 10 mg Documented by: Multivitamins/Minerals (Multivitamin With Minerals (Bkc)) 1 tablet PO DAILY@0800 [facility] Last Admin: 06/17/20 09:09 Dose: 1 tablet Documented by: Ondansetron HCl (Zofran) 4 mg IV Q8H PRN PRN PRN Reason: NAUSEA/VOMITING Pantoprazole Sodium (Protonix) 20 mg PO DAILY [facility] Last Admin: 06/17/20 09:09 Dose: 20 mg Documented by: Potassium Chloride (K-Dur) 10 meq PO DAILY [facility] Last Admin: 06/17/20 09:08 Dose: 10 meq Documented by: Sodium Chloride () 10 - 40 ml IV UD PRN PRN Reason: SALINE FLUSH Last Admin: 06/17/20 13:36 Dose: 10 ml Documented by: Medical Necessity - Tobacco Use Smoking Status: Former smoker Route of nutrition/ use of supplements: [] Nutritional Intake: [] IV Site: [] Castellano Catheter: [] - Assessment/Plan Antibiotics: [] Assessment/Plan: [] Active and Suspected Problems (Last Reviewed 06/14/20 @ 04:[address] Pedro Ferreira MD) Sepsis (Acute) Severe acute respiratory syndrome coronavirus 2 (SARS-CoV-2) infection ruled out (Acute) COVID-19 virus infection (Acute) Covid with sepsis, acute hypoxic resp failure, lymphopenia, elevated PCT - sx started 06/02, covid pcr (+) 06/06/20. Cont remdesivir for 5 days total. Received plasma. MRSA pcr neg. UAgs neg. On dexamethasone and eliquis. Stop zosyn tomorrow. Sputum with oral montserrat. Will follow
[2020-06-17 16:40] LABS: Bedside Glucose 167 mg/dL (70-110)
[2020-06-17] MEDS: dilTIAZem CD 180 MG Capsule 360 MG PO (16:58)
[2020-06-17] MEDS: Lisinopril 40 MG Tablet PO (16:59)
[2020-06-17] MEDS: Carvedilol 25 MG Tablet PO ×2 (16:59→21:24)
[2020-06-17 17:15] LABS: Bedside Glucose 187 mg/dL (70-110)
--- NOTE | 2020-06-17 17:45 | NURSING ---
ed re chronic illness deferred till acute illness resolving
[2020-06-17] MEDS: Loratadine 10 MG Tablet PO (21:24)
[2020-06-17] MEDS: Atorvastatin Calcium 40 MG Tablet PO (21:24)
--- NOTE | 2020-06-17 22:10 | CPS ---
patient placed on bipap via nursing due to desaturation.
[2020-06-17 23:06] LABS: Bedside Glucose 273 mg/dL (70-110)
[2020-06-18] VITALS (29 sets, daily range): BP systolic 110–149; BP diastolic 55–101; PULSE 50–70; RESP 12–24; TEMP 36.1–36.8; O2SAT 86–99
[2020-06-18 04:44] LABS: Hematocrit 26.7 % (40-54); Hemoglobin 8.9 g/dL (13.0-16.5); Mean Corp Hgb Conc 33.3 g/dL (32-36); Mean Corpuscular Hgb 28.9 pg (27.0-32.0); Mean Corpuscular Volume 86.7 fL (80-94); Mean Platelet Vol. 11.2 fl (6.2-12.0); Platelet Count 219 K/mm3 (150-450); RBC Distribution Width CV 17.3 % (11.6-14.6); RBC Distribution Width SD 54.9 fl (35.1-43.9); Red Blood Count 3.08 M/mm3 (4.6-6.2); White Blood Count 8.2 K/mm3 (4.4-11.0)
[2020-06-18 05:00] LABS: ALB/GLOB Ratio 0.5 RATIO (0.9-2.4); AST(SGOT) 61 U/L (15-37); Alanine Aminotransfer ALT/SGPT 74 U/L (16-61); Albumin, Serum 2.1 g/dL (3.2-5.0); Alkaline Phosphatase 57 U/L (45-117); Anion Gap 7 (5-15); BUN 42 mg/dL (7-18); BUN/Creat Ratio 26.4 RATIO (10-20); Chloride 106 mmol/L (98-107); Creatinine, Serum 1.59 mg/dL (0.70-1.30); EST Glomerular Filtration Rate 45 mL/min (>60); Est Glom Filt Rate - Afr Amer 55 mL/min (>60); Estimated Creatinine Clearance 37.53 ml/min; Globulin 4.2 g/dL (2.2-4.2); Glucose 195 mg/dL (74-106); Potassium 3.8 mmol/L (3.5-5.1); Protein, Total 6.3 g/dL (6.4-8.2); Sodium Level 141 mmol/L (136-145)
--- NOTE | 2020-06-18 08:16 | PN_ITS ---
Subjective: Patient did okay yesterday. Patient continues to have intermittent issues with wearing the BiPAP during the day, but wears it at night. No chest pain is been reported. Patient continues to have a nonproductive cough. General: Alert, Oriented x3, Cooperative, No apparent distress, Well developed, Well nourished, - - No conversational dyspnea. HEENT: Atraumatic, PERRLA, EOMI, Normocephalic, - - No scleral icterus or injection noted Oral: Moist Mucosa, No Gingival or Mucosal Lesions/ Ulcerations Neck: Supple, No JVD, No Nodes, Trachea Midline Lungs: No rhonchi, No wheeze, No rales, Diminished Cardiovascular: Normal S1, Normal S2, No murmurs, Bradycardic, No rub noted, No Gallop Abdomen: Bowel Sounds Present, Soft, Non Tender, Non-Distended, Obese Extremities: No clubbing, No cyanosis, No edema Skin: - - No change compared to previous Musculoskeletal: No Tenderness to Palpation of Joints or Extremities Lymphatic: No Cervical, Supraclavicular, or Inguinal Adenopathy Neurological: Cranial nerves II-XII grossly intact, Neuro grossly intact, Motor Exam 5/5 strength throughout Psych/Mental Status: Alert and oriented to time, place, person, mood and affect Vital Signs Temp Pulse Resp BP Pulse Ox 36.1 C L 57 L 20 H 125/67 H 98 06/18/20 06:00 06/18/20 07:22 06/18/20 07:22 06/18/20 06:00 06/18/20 07:22 Oxygen Flow Rate (L/min) 60 Oxygen Delivery Method Bi-pap Weight: 90.2 kg Body Mass Index (BMI) 30.2 Finger Stick Blood Glucose 104 Intake and Output for Last 24 Hours 06/16/20 06/17/20 06/18/20 23:59 23:59 23:59 Intake Total 1240 / 1240 1540 / 1540 50 / 50 Output Total 2375 / 2550 2440 / 2590 650 / 650 Balance -1135 / -1310 -900 / -1050 -600 / -600 Labs (Last 48 Hours) 06/16/20 06/16/20 06/16/20 11:20 16:45 22:08 WBC RBC Hgb Hct MCV MCH MCHC RDW Std Deviation RDW Coeff of Azeem Plt Count MPV Sodium Potassium Chloride Carbon Dioxide Anion Gap BUN Creatinine Estim Creat Clear Calc Est GFR (MDRD) Af Amer Est GFR (MDRD) Non-Af BUN/Creatinine Ratio Glucose Calcium Total Bilirubin AST ALT Alkaline Phosphatase Total Protein Albumin Globulin Albumin/Globulin Ratio POC Glucose 295 H 232 H 255 H 06/17/20 06/17/20 06/17/20 05:20 05:20 08:55 WBC 8.0 RBC 2.96 L Hgb 8.3 L Hct 25.8 L MCV 87.2 MCH 28.0 MCHC 32.2 RDW Std Deviation 55.8 H RDW Coeff of Azeem 17.4 H Plt Count 212 MPV 11.4 Sodium 139 Potassium 3.7 Chloride 105 Carbon Dioxide 28.0 Anion Gap 6 BUN 54 H Creatinine 1.74 H Estim Creat Clear Calc 34.30 Est GFR (MDRD) Af Amer 49 L Est GFR (MDRD) Non-Af 41 L BUN/Creatinine Ratio 31.0 H Glucose 269 H Calcium 8.0 L Total Bilirubin 0.40 AST 107 H ALT 92 H Alkaline Phosphatase 55 Total Protein 6.3 L Albumin 2.1 L Globulin 4.2 Albumin/Globulin Ratio 0.5 L POC Glucose 209 H 06/17/20 06/17/20 06/17/20 13:23 17:01 21:21 WBC RBC Hgb Hct MCV MCH MCHC RDW Std Deviation RDW Coeff of Azeem Plt Count MPV Sodium Potassium Chloride Carbon Dioxide Anion Gap BUN Creatinine Estim Creat Clear Calc Est GFR (MDRD) Af Amer Est GFR (MDRD) Non-Af BUN/Creatinine Ratio Glucose Calcium Total Bilirubin AST ALT Alkaline Phosphatase Total Protein Albumin Globulin Albumin/Globulin Ratio POC Glucose 167 H 187 H 273 H 06/18/20 06/18/20 04:30 04:30 WBC 8.2 RBC 3.08 L Hgb 8.9 L Hct 26.7 L MCV 86.7 MCH 28.9 MCHC 33.3 RDW Std Deviation 54.9 H RDW Coeff of Azeem 17.3 H Plt Count 219 MPV 11.2 Sodium 141 Potassium 3.8 Chloride 106 Carbon Dioxide 28.0 Anion Gap 7 BUN 42 H Creatinine 1.59 H Estim Creat Clear Calc 37.53 Est GFR (MDRD) Af Amer 55 L Est GFR (MDRD) Non-Af 45 L BUN/Creatinine Ratio 26.4 H Glucose 195 H Calcium 8.0 L Total Bilirubin 0.50 AST 61 H ALT 74 H Alkaline Phosphatase 57 Total Protein 6.3 L Albumin 2.1 L Globulin 4.2 Albumin/Globulin Ratio 0.5 L POC Glucose Microbiology 06/16/20 16:54 Sputum, Expectorated/Coughed Gram Stain - Final 06/16/20 16:54 Sputum, Expectorated/Coughed Respiratory Culture - Preliminary Appears to be normal respiratory montserrat. Further studies to follow. 06/14/20 01:15 Blood Culture (Wb) #2 - Right Hand Blood Culture - Preliminary No growth in 48 hours. 06/14/20 01:00 Blood Culture (Wb) - Anticubital Left Blood Culture - Preliminary No growth in 48 hours. 06/14/20 02:40 Urine Catheter - Catheter Urine Culture - Final Culture exhibits no growth. Medical Necessity - Tobacco Use Smoking Status: Former smoker Assessment/Plan All Active Problems (Last Reviewed 06/14/20 @ 04:[address] Pedro Ferreira MD) Sepsis (Acute) Severe acute respiratory syndrome coronavirus 2 (SARS-CoV-2) infection ruled out (Acute) COVID-19 virus infection (Acute) Chest tightness (Resolved) Hypertensive urgency (Resolved) Left wrist pain (Resolved) Syncopal episodes (Resolved) Ureteral calculus, right (Resolved) RECOMMENDATIONS: 1. Continue high flow nasal cannula with BiPAP with sleep and rescue as indicated 2. Continue Eliquis for anticoagulation, Decadron for 10 days and Remdisivir protocol 3. Increase activity as tolerated. Encourage in incentive spirometer 4. Continue PT/OT along with dietary measures to preserve strength 5. Attempt volume restriction. Administer Lasix IMPRESSIONS: 1. Acute hypoxic respiratory failure secondary to COVID-19 Patient currently tolerating BiPAP therapy with sleep only. We will continue to monitor. Patient is on anticoagulation at baseline with Eliquis therapy, so this is been continued. Patient has received convalescent serum. Antiretroviral per infectious disease. Continue supportive care. Patient does have pulmonary hypertension at baseline, so volume restriction will be important long-term. Use Lasix to help with volume status 2. Severe sepsis secondary to viral pneumonia Patient does have documented COVID-19. However, patient also has an elevated pro calcitonin, so I believe it is reasonable to continue with empiric antibiotics to complete a 7-day course. Patient has had normalization of leukocytosis with antibiotics. Patient has remained hemodynamically stable at this time. Patient does have a history of paroxysmal A. fib, so we will need to watch closely. Infectious disease is following. 3. CKD stage III BUN and creatinine appear to be at baseline at this time. Patient is tolerating current situation well. We will have to watch closely as patient will be at risk for complications of renal failure. Urine output is acceptable at this time. Replete electrolytes as indicated. 4. Hypoglycemia/diabetes mellitus Patient now having some episodes with elevated blood sugars, likely secondary to Decadron. Continue to monitor blood sugars. Patient may require increased sliding scale insulin in the near term. Variable p.o. intake at this time. Continue blood sugar checks for diabetes mellitus. 5. History of A. fib/diastolic congestive heart failure/hypertension Patient blood pressure appears to be doing well at this time. We will hold hydralazine. Some concern of noncompliance as an outpatient leading to multiple medications. Rate is controlled at this time. 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 6. Advanced age/rheumatoid/dementia/SUPA Complicates care, management, recovery and prognosis. Patient should continue CPAP at 15 cm of water at baseline once need for BiPAP has resolved. Defer to infectious disease on continuation of baseline immunosuppression. Inpatient E&M: [id number] [facility] L3
[2020-06-18] MEDS: Gabapentin 600 MG Tablet PO ×2 (08:23→20:42)
[2020-06-18] MEDS: Furosemide 40 MG Tablet PO (08:23)
[2020-06-18] MEDS: Pantoprazole Sodium 20 MG Tablet PO (08:24)
[2020-06-18] MEDS: guaiFENesin 1,200 MG Tablet 1200 MG PO ×2 (08:24→20:42)
[2020-06-18] MEDS: dilTIAZem CD 180 MG Capsule 360 MG PO (08:24)
[2020-06-18] MEDS: Calcium Carb/Vitamin D 1 TABLET Tablet PO (08:24)
[2020-06-18] MEDS: APIXABAN 5 MG TABLET PO ×2 (08:24→20:42)
[2020-06-18] MEDS: Amiodarone 200 MG Tablet 100 MG PO (08:24)
[2020-06-18] MEDS: DULoxetine Hcl 60 MG Capsule PO (08:25)
[2020-06-18] MEDS: Multivitamins,Ther W-Minerals Tablet 1 TABLET PO (08:25)
[2020-06-18] MEDS: Lisinopril 40 MG Tablet PO (08:25)
[2020-06-18] MEDS: Insulin Lispro 100 UNIT/ML INSULN.PEN SC ×4 (08:25→20:41)
[2020-06-18] MEDS: dexAMETHasone 10 MG/ML Vial 6 MG IV (08:25)
[2020-06-18 08:46] LABS: Bedside Glucose 191 mg/dL (70-110)
--- NOTE | 2020-06-18 10:41 | PN_ITS ---
Patient Problems: Active and Suspected Problems (Last Reviewed 06/14/20 @ 04:[address] Pedro Ferreira MD) Sepsis (Acute) Severe acute respiratory syndrome coronavirus 2 (SARS-CoV-2) infection ruled out (Acute) COVID-19 virus infection (Acute) Reason for Visit: COVID Subjective: Feeling slightly better. Still with productive cough, but less frequent. Vitals/I&O's: Vital Signs Temp Pulse Resp BP Pulse Ox 36.1 C L 60 18 122/65 H 92 06/18/20 08:00 06/18/20 10:00 06/18/20 10:00 06/18/20 10:00 06/18/20 10:00 Oxygen Flow Rate (L/min) 60 Oxygen Delivery Method Bi-pap Weight: 90.2 kg Body Mass Index (BMI) 30.2 Finger Stick Blood Glucose 104 Intake and Output for Last 24 Hours 06/16/20 06/17/20 06/18/20 23:59 23:59 23:59 Intake Total 1240 / 1240 1540 / 1540 100 / 100 Output Total 2375 / 2550 2440 / 2590 800 / 800 Balance -1135 / -1310 -900 / -1050 -700 / -700 General: Alert, No apparent distress HEENT: Atraumatic, Normocephalic Oral: Moist Mucosa, No Gingival or Mucosal Lesions/ Ulcerations Neck: No Nodes, Thyroid Normal Size and Texture Lungs: Clear to auscultation, Normal air movement, No rhonchi, No wheeze Cardiovascular: Regular rate, Regular Rhythm, Normal S1, Normal S2, No murmurs Abdomen: Bowel Sounds Present, Soft, Non Tender, Non-Distended, No Hepato- splenomegaly Extremities: No edema, No Calf Tenderness Microbiology Past 72 Hours 06/16/20 16:54 Sputum, Expectorated/Coughed Gram Stain - Final 06/16/20 16:54 Sputum, Expectorated/Coughed Respiratory Culture - Preliminary Appears to be normal respiratory montserrat. Further studies to follow. 06/14/20 01:15 Blood Culture (Wb) #2 - Right Hand Blood Culture - Preliminary No growth in 48 hours. 06/14/20 01:00 Blood Culture (Wb) - Anticubital Left Blood Culture - Preliminary No growth in 48 hours. 06/14/20 02:40 Urine Catheter - Catheter Urine Culture - Final Culture exhibits no growth. Laboratory Results 06/17/20 13:23: POC Glucose 167 H 06/17/20 17:01: POC Glucose 187 H 06/17/20 21:21: POC Glucose 273 H 06/18/20 04:30: WBC 8.2, RBC 3.08 L, Hgb 8.9 L, Hct 26.7 L, MCV 86.7, MCH 28.9, MCHC 33.3, RDW Std Deviation 54.9 H, RDW Coeff of Azeem 17.3 H, Plt Count 219, MPV 11.2 06/18/20 04:30: Sodium 141, Potassium 3.8, Chloride 106, Carbon Dioxide 28.0, Anion Gap 7, BUN 42 H, Creatinine 1.59 H, Estim Creat Clear Calc 37.53, Est GFR (MDRD) Af Amer 55 L, Est GFR (MDRD) Non-Af 45 L, BUN/Creatinine Ratio 26.4 H, Glucose 195 H, Calcium 8.0 L, Total Bilirubin 0.50, AST 61 H, ALT 74 H, Alkaline Phosphatase 57, Total Protein 6.3 L, Albumin 2.1 L, Globulin 4.2, Alb umin/Globulin Ratio 0.5 L 06/18/20 08:23: POC Glucose 191 H Current Medications Acetaminophen (Tylenol) 650 mg PO Q6H PRN PRN PRN Reason: Pain Score 1-10/Temp > 100.7 F Albuterol/Ipratropium (Duoneb) 3 ml INHALATION Q4HWA.RT PRN PRN Reason: sob/wheezing Amiodarone HCl (Cordarone) 100 mg PO DAILY [facility] Last Admin: 06/18/20 08:24 Dose: 100 mg Documented by: Amlodipine Besylate (Norvasc) 10 mg PO DAILY [facility] Last Admin: 06/17/20 09:09 Dose: 10 mg Documented by: Apixaban (Eliquis) 5 mg PO BID [facility] Last Admin: 06/18/20 08:24 Dose: 5 mg Documented by: Atorvastatin Calcium (Lipitor) 40 mg PO QHS [facility] Last Admin: 06/17/20 21:24 Dose: 40 mg Documented by: Calcium/Vitamin D (Os-Abiel 500mg + D) 1 tablet PO DAILY [facility] Last Admin: 06/18/20 08:24 Dose: 1 tablet Documented by: Carvedilol (Coreg) 25 mg PO BID [facility] Last Admin: 06/17/20 21:24 Dose: 25 mg Documented by: Dexamethasone Sodium Phosphate (Decadron) 6 mg IV DAILY [facility] Last Admin: 06/18/20 08:25 Dose: 6 mg Documented by: Dextrose (D50w Syringe) 0 gm IV X1 PRN; Protocol PRN Reason: Hypoglycemia Diltiazem HCl (Cardizem Cd) 360 mg PO DAILY [facility] Last Admin: 06/18/20 08:24 Dose: 360 mg Documented by: Duloxetine HCl (Cymbalta) 60 mg PO DAILY [facility] Last Admin: 06/18/20 08:25 Dose: 60 mg Documented by: Furosemide (Lasix) 40 mg PO DAILY@0800 [facility] Last Admin: 06/18/20 08:23 Dose: 40 mg Documented by: Gabapentin (Neurontin) 600 mg PO BID [facility] Last Admin: 06/18/20 08:23 Dose: 600 mg Documented by: Glucagon () 1 mg IM .X1 PRN PRN Reason: Hypoglycemia Guaifenesin (Mucinex) 1,200 mg PO BID [facility] Last Admin: 06/18/20 08:24 Dose: 1,200 mg Documented by: Sodium Chloride () 250 mls @ 15 mls/hr IV .[id number] PRN PRN Reason: Saline Flush Last Admin: 06/18/20 08:49 Dose: 15 mls/hr Documented by: Sodium Chloride () 250 mls @ 15 mls/hr IV .[id number] PRN PRN Reason: Additional IVPB Infusion Remdesivir (Investigational) (100 mg/ Sodium Chloride) 250 mls @ 125 mls/hr IV DAILY [facility]; Protocol Stop: 06/18/20 11:59 Last Infusion: 06/17/20 15:31 Dose: Infused Documented by: Piperacillin Sod/Tazobactam (Sod 3.375 gm/ Sodium Chloride) 50 mls @ 12.5 mls/h r IV Q8 [facility] Stop: 06/18/20 22:01 Last Infusion: 06/18/20 08:48 Dose: Infused Documented by: Insulin Glargine (Lantus ([facility])) 10 units SC DAILY [facility] Last Admin: 06/18/20 08:26 Dose: 10 u Documented by: Insulin Human Lispro (Humalog Kwikpen ([facility])) 0 unit SC ACHS [facility]; Protocol Last Admin: 06/18/20 08:25 Dose: 3 u Documented by: Isosorbide Mononitrate (Imdur) 60 mg PO BID [facility] Last Admin: 06/17/20 21:24 Dose: 60 mg Documented by: Lisinopril (Zestril) 40 mg PO DAILY [facility] Last Admin: 06/18/20 08:25 Dose: 40 mg Documented by: Loratadine (Claritin) 10 mg PO QHS [facility] Last Admin: 06/17/20 21:24 Dose: 10 mg Documented by: Multivitamins/Minerals (Multivitamin With Minerals ([facility])) 1 tablet PO DAILY@0800 [facility] Last Admin: 06/18/20 08:25 Dose: 1 tablet Documented by: Ondansetron HCl (Zofran) 4 mg IV Q8H PRN PRN PRN Reason: NAUSEA/VOMITING Pantoprazole Sodium (Protonix) 20 mg PO DAILY [facility] Last Admin: 06/18/20 08:24 Dose: 20 mg Documented by: Potassium Chloride (K-Dur) 10 meq PO DAILY [facility] Last Admin: 06/18/20 08:25 Dose: 10 meq Documented by: Sodium Chloride () 10 - 40 ml IV UD PRN PRN Reason: SALINE FLUSH Last Admin: 06/17/20 13:36 Dose: 10 ml Documented by: STROKE Vital Signs/Narrative: Vital Signs Temp Pulse Resp BP Pulse Ox 06/18/20 10:00 60 18 122/65 H 92 06/18/20 09:00 68 20 H 129/62 H 86 06/18/20 08:00 36.1 C L 57 L 18 123/65 H 96 06/18/20 07:22 57 L 20 H 98 06/18/20 07:00 56 L 18 127/75 H 98 Medical Necessity - Tobacco Use Smoking Status: Former smoker Assessment/Plan All Active Problems (Last Reviewed 06/14/20 @ 04:[address] Pedro Ferreira MD) Sepsis (Acute) Severe acute respiratory syndrome coronavirus 2 (SARS-CoV-2) infection ruled out (Acute) COVID-19 virus infection (Acute) Chest tightness (Resolved) Hypertensive urgency (Resolved) Left wrist pain (Resolved) Syncopal episodes (Resolved) Ureteral calculus, right (Resolved) 1. COVID-19 infection * on remdesivir, dexamethasone * likely viral pneumonia +/- bacterial pneumonia. On Pip/tazo * ID following 2. Sepsis * POA * 2/2 above. * follow up cultures 3. acute hypoxic respiratory failure * 2/2 above * still requiring BiPAP, currently on high-flow humidified oxygen. * mgmt per CCM 4. Hypoglycemia * resolved * 2/2 above and glimepiride * hold glimepiride * now hyperglycemic. on SSI. 5. Afib * on amiodarone, carveilol, apixaban 6. VTE prophylaxis: already anticoagulated. Inpatient E&M: [id number] [facility] L2
[2020-06-18] MEDS: Carvedilol 25 MG Tablet PO ×2 (11:41→20:42)
[2020-06-18] MEDS: Isosorbide Mononitrate 60 MG Tablet PO ×2 (11:41→20:42)
[2020-06-18] MEDS: amLODIPine 10 MG Tablet PO (11:41)
[2020-06-18 12:21] LABS: Bedside Glucose 283 mg/dL (70-110)
[2020-06-18 17:05] LABS: Bedside Glucose 310 mg/dL (70-110)
[2020-06-18] MEDS: Insulin NPH Human 100 UNITS/ML PEN SC (20:41)
[2020-06-18] MEDS: Loratadine 10 MG Tablet PO (20:42)
[2020-06-18] MEDS: Atorvastatin Calcium 40 MG Tablet PO (20:42)
[2020-06-18 22:21] LABS: Bedside Glucose 354 mg/dL (70-110)
[2020-06-19] VITALS (30 sets, daily range): BP systolic 121–141; BP diastolic 60–108; PULSE 52–92; RESP 12–30; TEMP 36–36.6; O2SAT 88–99
[2020-06-19 04:08] LABS: Hematocrit 24.1 % (40-54); Hemoglobin 7.8 g/dL (13.0-16.5); Mean Corp Hgb Conc 32.4 g/dL (32-36); Mean Corpuscular Hgb 28.3 pg (27.0-32.0); Mean Corpuscular Volume 87.3 fL (80-94); Mean Platelet Vol. 11.4 fl (6.2-12.0); Platelet Count 237 K/mm3 (150-450); RBC Distribution Width CV 17.3 % (11.6-14.6); RBC Distribution Width SD 55.1 fl (35.1-43.9); Red Blood Count 2.76 M/mm3 (4.6-6.2); White Blood Count 9.7 K/mm3 (4.4-11.0)
[2020-06-19 04:24] LABS: ALB/GLOB Ratio 0.5 RATIO (0.9-2.4); AST(SGOT) 39 U/L (15-37); Alanine Aminotransfer ALT/SGPT 63 U/L (16-61); Albumin, Serum 1.9 g/dL (3.2-5.0); Alkaline Phosphatase 52 U/L (45-117); Anion Gap 6 (5-15); BUN 46 mg/dL (7-18); BUN/Creat Ratio 25.7 RATIO (10-20); Chloride 107 mmol/L (98-107); Creatinine, Serum 1.79 mg/dL (0.70-1.30); EST Glomerular Filtration Rate 40 mL/min (>60); Est Glom Filt Rate - Afr Amer 48 mL/min (>60); Estimated Creatinine Clearance 33.34 ml/min; Globulin 3.9 g/dL (2.2-4.2); Glucose 213 mg/dL (74-106); Potassium 4.1 mmol/L (3.5-5.1); Protein, Total 5.8 g/dL (6.4-8.2); Sodium Level 141 mmol/L (136-145)
[2020-06-19] MEDS: Amiodarone 200 MG Tablet 100 MG PO (08:24)
[2020-06-19] MEDS: Pantoprazole Sodium 20 MG Tablet PO (08:24)
[2020-06-19] MEDS: Gabapentin 600 MG Tablet PO ×2 (08:24→20:26)
[2020-06-19] MEDS: dilTIAZem CD 180 MG Capsule 360 MG PO (08:24)
[2020-06-19] MEDS: Multivitamins,Ther W-Minerals Tablet 1 TABLET PO (08:24)
[2020-06-19] MEDS: Furosemide 40 MG Tablet PO (08:25)
[2020-06-19] MEDS: amLODIPine 10 MG Tablet PO (08:25)
[2020-06-19] MEDS: DULoxetine Hcl 60 MG Capsule PO (08:25)
[2020-06-19] MEDS: Calcium Carb/Vitamin D 1 TABLET Tablet PO (08:25)
[2020-06-19] MEDS: dexAMETHasone 10 MG/ML Vial 6 MG IV (08:26)
[2020-06-19] MEDS: APIXABAN 5 MG TABLET PO ×2 (08:26→20:26)
[2020-06-19] MEDS: guaiFENesin 1,200 MG Tablet 1200 MG PO ×2 (08:26→20:26)
[2020-06-19] MEDS: Insulin Lispro 100 UNIT/ML INSULN.PEN SC ×4 (08:27→20:27)
--- NOTE | 2020-06-19 09:14 | PN_ITS ---
Subjective: Patient did okay overnight. Patient continues to have a nonproductive cough. Patient did cooperate with BiPAP overnight. Patient was on high flow nasal cannula for most of the day yesterday, but was able to be placed on 6 L nasal cannula this morning. Patient tolerating p.o. Blood sugars have been trending up. General: Alert, Oriented x3, Cooperative, No apparent distress, - - No conversational dyspnea noted. HEENT: Atraumatic, PERRLA, EOMI, Normocephalic, - - No scleral icterus or injec tion noted Oral: Moist Mucosa, No Gingival or Mucosal Lesions/ Ulcerations Neck: Supple, No JVD, No Nodes, Trachea Midline Lungs: No rhonchi, Diminished, Rales - Right base, Wheezes - Right base, - - Symmetric expansion Cardiovascular: Regular rate, Regular Rhythm, Normal S1, Normal S2, No murmurs, No rub noted, No Gallop Abdomen: Bowel Sounds Present, Soft, Non Tender, Non-Distended, Obese Extremities: No clubbing, No cyanosis, Edema - Trace lower extremity Skin: - Musculoskeletal: No Tenderness to Palpation of Joints or Extremities - No change from previous Lymphatic: No Cervical, Supraclavicular, or Inguinal Adenopathy Neurological: Cranial nerves II-XII grossly intact, Neuro grossly intact, Motor Exam 5/5 strength throughout Psych/Mental Status: Alert and oriented to time, place, person, mood and affect Vital Signs Temp Pulse Resp BP Pulse Ox 36.3 C L 54 L 18 123/69 H 99 06/19/20 06:00 06/19/20 06:00 06/19/20 06:00 06/19/20 06:00 06/19/20 06:00 Oxygen Flow Rate (L/min) 40 Oxygen Delivery Method Bi-pap Weight: 91.4 kg Body Mass Index (BMI) 30.2 Finger Stick Blood Glucose 104 Intake and Output for Last 24 Hours 06/17/20 06/18/20 06/19/20 23:59 23:59 23:59 Intake Total 1540 / 1540 721.75 / 721.75 218.5 / 218.5 Output Total 2440 / 2590 2080 / 2080 480 / 480 Balance -900 / -1050 -1358.25 / -1358.25 -261.5 / -261.5 Labs (Last 48 Hours) 06/17/20 06/17/20 06/17/20 08:55 13:23 17:01 WBC RBC Hgb Hct MCV MCH MCHC RDW Std Deviation RDW Coeff of Azeem Plt Count MPV Sodium Potassium Chloride Carbon Dioxide Anion Gap BUN Creatinine Estim Creat Clear Calc Est GFR (MDRD) Af Amer Est GFR (MDRD) Non-Af BUN/Creatinine Ratio Glucose Calcium Total Bilirubin AST ALT Alkaline Phosphatase Total Protein Albumin Globulin Albumin/Globulin Ratio POC Glucose 209 H 167 H 187 H 06/17/20 06/18/20 06/18/20 21:21 04:30 04:30 WBC 8.2 RBC 3.08 L Hgb 8.9 L Hct 26.7 L MCV 86.7 MCH 28.9 MCHC 33.3 RDW Std Deviation 54.9 H RDW Coeff of Azeem 17.3 H Plt Count 219 MPV 11.2 Sodium 141 Potassium 3.8 Chloride 106 Carbon Dioxide 28.0 Anion Gap 7 BUN 42 H Creatinine 1.59 H Estim Creat Clear Calc 37.53 Est GFR (MDRD) Af Amer 55 L Est GFR (MDRD) Non-Af 45 L BUN/Creatinine Ratio 26.4 H Glucose 195 H Calcium 8.0 L Total Bilirubin 0.50 AST 61 H ALT 74 H Alkaline Phosphatase 57 Total Protein 6.3 L Albumin 2.1 L Globulin 4.2 Albumin/Globulin Ratio 0.5 L POC Glucose 273 H 06/18/20 06/18/20 06/18/20 08:23 11:39 16:56 WBC RBC Hgb Hct MCV MCH MCHC RDW Std Deviation RDW Coeff of Azeem Plt Count MPV Sodium Potassium Chloride Carbon Dioxide Anion Gap BUN Creatinine Estim Creat Clear Calc Est GFR (MDRD) Af Amer Est GFR (MDRD) Non-Af BUN/Creatinine Ratio Glucose Calcium Total Bilirubin AST ALT Alkaline Phosphatase Total Protein Albumin Globulin Albumin/Globulin Ratio POC Glucose 191 H 283 H 310 H 06/18/20 06/19/20 06/19/20 20:38 03:50 03:50 WBC 9.7 RBC 2.76 L Hgb 7.8 L Hct 24.1 L MCV 87.3 MCH 28.3 MCHC 32.4 RDW Std Deviation 55.1 H RDW Coeff of Azeem 17.3 H Plt Count 237 MPV 11.4 Sodium 141 Potassium 4.1 Chloride 107 Carbon Dioxide 28.0 Anion Gap 6 BUN 46 H Creatinine 1.79 H Estim Creat Clear Calc 33.34 Est GFR (MDRD) Af Amer 48 L Est GFR (MDRD) Non-Af 40 L BUN/Creatinine Ratio 25.7 H Glucose 213 H Calcium 8.0 L Total Bilirubin 0.40 AST 39 H ALT 63 H Alkaline Phosphatase 52 Total Protein 5.8 L Albumin 1.9 L Globulin 3.9 Albumin/Globulin Ratio 0.5 L POC Glucose 354 H Microbiology 06/14/20 01:15 Blood Culture (Wb) #2 - Right Hand Blood Culture - Final No growth in 5 days. 06/14/20 01:00 Blood Culture (Wb) - Anticubital Left Blood Culture - Final No growth in 5 days. 06/16/20 16:54 Sputum, Expectorated/Coughed Gram Stain - Final 06/16/20 16:54 Sputum, Expectorated/Coughed Respiratory Culture - Preliminary Appears to be normal respiratory montserrat. Further studies to follow. Medical Necessity - Tobacco Use Smoking Status: Former smoker Assessment/Plan All Active Problems (Last Reviewed 06/14/20 @ 04:[address] Pedro Ferreira MD) Sepsis (Acute) Severe acute respiratory syndrome coronavirus 2 (SARS-CoV-2) infection ruled out (Acute) COVID-19 virus infection (Acute) Chest tightness (Resolved) Hypertensive urgency (Resolved) Left wrist pain (Resolved) Syncopal episodes (Resolved) Ureteral calculus, right (Resolved) RECOMMENDATIONS: 1. Continue low flow nasal cannula with BiPAP with sleep and rescue as indicated 2. Continue Eliquis for anticoagulation, Decadron for 10 days and Remdisivir protocol 3. Increase activity as tolerated. Encourage in incentive spirometer 4. Continue PT/OT along with dietary measures to preserve strength 5. Attempt volume restriction. Administer Lasix daily p.o. IMPRESSIONS: 1. Acute hypoxic respiratory failure secondary to COVID-19 Patient currently tolerating BiPAP therapy with sleep only. We will continue to monitor. Patient is on anticoagulation at baseline with Eliquis therapy, so this is been continued. Patient has received convalescent serum. Antiretroviral per infectious disease. Continue supportive care. Patient does have pulmonary hypertension at baseline, so volume restriction will be important long-term. Use Lasix to help with volume status. 2. Severe sepsis secondary to viral pneumonia Patient does have documented COVID-19. However, patient also has an elevated pro calcitonin, so I believe it is reasonable to continue with empiric antibiotics to complete a 7-day course. Patient has had normalization of leukocytosis with antibiotics. Patient has remained hemodynamically stable at this time. Patient does have a history of paroxysmal A. fib, so we will need to watch closely. Infectious disease is following. 3. CKD stage III BUN and creatinine appear to be at baseline at this time. Patient is tolerating current situation well. We will have to watch closely as patient will be at risk for complications of renal failure. Urine output is acceptable at this time. Replete electrolytes as indicated. 4. Hypoglycemia/diabetes mellitus Patient now having some episodes with elevated blood sugars, likely secondary to Decadron. Continue to monitor blood sugars. Patient may require increased sliding scale insulin in the near term. Variable p.o. intake at this time. Continue blood sugar checks for diabetes mellitus. Will increase Lantus therapy 5. History of A. fib/diastolic congestive heart failure/hypertension Patient blood pressure appears to be doing well at this time. We will hold hydralazine. Some concern of noncompliance as an outpatient leading to multiple medications. Rate is controlled at this time. 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 6. Advanced age/rheumatoid/dementia/SUPA Complicates care, management, recovery and prognosis. Patient should continue CPAP at 15 cm of water at baseline once need for BiPAP has resolved. Defer to infectious disease on continuation of baseline immunosuppression. Inpatient E&M: 96845 [facility] Hosp L3
[2020-06-19 09:36] LABS: Bedside Glucose 209 mg/dL (70-110)
--- NOTE | 2020-06-19 10:24 | PN_ITS ---
Patient Problems: Active and Suspected Problems (Last Reviewed 06/14/20 @ 04:[address] Pedro Ferreira MD) Sepsis (Acute) Severe acute respiratory syndrome coronavirus 2 (SARS-CoV-2) infection ruled out (Acute) COVID-19 virus infection (Acute) Reason for Visit: COVID-19 Subjective: Breathing better. Coughing. Vitals/I&O's: Vital Signs Temp Pulse Resp BP Pulse Ox 36.3 C L 60 18 123/69 H 95 06/19/20 06:00 06/19/20 09:00 06/19/20 06:00 06/19/20 06:00 06/19/20 07:00 Oxygen Flow Rate (L/min) 6 Oxygen Delivery Method Nasal Cannula Weight: 91.4 kg Body Mass Index (BMI) 30.2 Finger Stick Blood Glucose 104 Intake and Output for Last 24 Hours 06/17/20 06/18/20 06/19/20 23:59 23:59 23:59 Intake Total 1540 / 1540 721.75 / 721.75 218.5 / 218.5 Output Total 2440 / 2590 2080 / 2080 480 / 480 Balance -900 / -1050 -1358.25 / -1358.25 -261.5 / -261.5 General: Alert, No apparent distress HEENT: Atraumatic, Normocephalic Oral: Moist Mucosa, No Gingival or Mucosal Lesions/ Ulcerations Neck: No Nodes, Thyroid Normal Size and Texture Lungs: Normal air movement, - - coarse breath sounds Cardiovascular: Regular rate, Regular Rhythm, Normal S1, Normal S2 Abdomen: Bowel Sounds Present, Soft, Non Tender, Non-Distended Extremities: No edema, No Calf Tenderness Skin: No rashes, No breakdown Psych/Mental Status: Normal Affect, Appropriate Microbiology Past 72 Hours 06/16/20 16:54 Sputum, Expectorated/Coughed Gram Stain - Final 06/16/20 16:54 Sputum, Expectorated/Coughed Respiratory Culture - Final Mixed normal respiratory montserrat. No Streptococcus pneumoniae, beta-hemolytic Streptococcus or Staphylococcus aureus isolated. 06/14/20 01:15 Blood Culture (Wb) #2 - Right Hand Blood Culture - Final No growth in 5 days. 06/14/20 01:00 Blood Culture (Wb) - Anticubital Left Blood Culture - Final No growth in 5 days. 06/14/20 02:40 Urine Catheter - Catheter Urine Culture - Final Culture exhibits no growth. Laboratory Results 06/18/20 11:39: POC Glucose 283 H 06/18/20 16:56: POC Glucose 310 H 06/18/20 20:38: POC Glucose 354 H 06/19/20 03:50: WBC 9.7, RBC 2.76 L, Hgb 7.8 L, Hct 24.1 L, MCV 87.3, MCH 28.3, MCHC 32.4, RDW Std Deviation 55.1 H, RDW Coeff of Azeem 17.3 H, Plt Count 237, MPV 11.4 06/19/20 03:50: Sodium 141, Potassium 4.1, Chloride 107, Carbon Dioxide 28.0, Anion Gap 6, BUN 46 H, Creatinine 1.79 H, Estim Creat Clear Calc 33.34, Est GFR (MDRD) Af Amer 48 L, Est GFR (MDRD) Non-Af 40 L, BUN/Creatinine Ratio 25.7 H, Glucose 213 H, Calcium 8.0 L, Total Bilirubin 0.40, AST 39 H, ALT 63 H, Alkaline Phosphatase 52, Total Protein 5.8 L, Albumin 1.9 L, Globulin 3.9, Albumin/Globulin Ratio 0.5 L 06/19/20 08:20: POC Glucose 209 H Current Medications Acetaminophen (Tylenol) 650 mg PO Q6H PRN PRN PRN Reason: Pain Score 1-10/Temp > 100.7 F Albuterol/Ipratropium (Duoneb) 3 ml INHALATION Q4HWA.RT PRN PRN Reason: sob/wheezing Amiodarone HCl (Cordarone) 100 mg PO DAILY [facility] Last Admin: 06/19/20 08:24 Dose: 100 mg Documented by: Amlodipine Besylate (Norvasc) 10 mg PO DAILY [facility] Last Admin: 06/19/20 08:25 Dose: 10 mg Documented by: Apixaban (Eliquis) 5 mg PO BID [facility] Last Admin: 06/19/20 08:26 Dose: 5 mg Documented by: Atorvastatin Calcium (Lipitor) 40 mg PO QHS [facility] Last Admin: 06/18/20 20:42 Dose: 40 mg Documented by: Calcium/Vitamin D (Os-Abiel 500mg + D) 1 tablet PO DAILY [facility] Last Admin: 06/19/20 08:25 Dose: 1 tablet Documented by: Carvedilol (Coreg) 25 mg PO BID [facility] Last Admin: 06/18/20 20:42 Dose: 25 mg Documented by: Dexamethasone Sodium Phosphate (Decadron) 6 mg IV DAILY [facility] Last Admin: 06/19/20 08:26 Dose: 6 mg Documented by: Dextrose (D50w Syringe) 0 gm IV X1 PRN; Protocol PRN Reason: Hypoglycemia Diltiazem HCl (Cardizem Cd) 360 mg PO DAILY [facility] Last Admin: 06/19/20 08:24 Dose: 360 mg Documented by: Duloxetine HCl (Cymbalta) 60 mg PO DAILY [facility] Last Admin: 06/19/20 08:25 Dose: 60 mg Documented by: Furosemide (Lasix) 40 mg PO DAILY@0800 [facility] Last Admin: 06/19/20 08:25 Dose: 40 mg Documented by: Gabapentin (Neurontin) 600 mg PO BID [facility] Last Admin: 06/19/20 08:24 Dose: 600 mg Documented by: Glucagon () 1 mg IM .X1 PRN PRN Reason: Hypoglycemia Guaifenesin (Mucinex) 1,200 mg PO BID [facility] Last Admin: 06/19/20 08:26 Dose: 1,200 mg Documented by: Sodium Chloride () 250 mls @ 15 mls/hr IV .[id number] PRN PRN Reason: Saline Flush Last Infusion: 06/19/20 04:00 Dose: 0 mls/hr Documented by: Sodium Chloride () 250 mls @ 15 mls/hr IV .[id number] PRN PRN Reason: Additional IVPB Infusion Insulin Glargine (Lantus (Bkc)) 10 units SC X1 ONE Stop: 06/19/20 11:01 Insulin Glargine (Lantus (Bkc)) 20 units SC DAILY [facility] Insulin Human Lispro (Humalog Kwikpen (Bkc)) 0 unit SC ACHS [facility]; Protocol Last Admin: 06/19/20 08:27 Dose: 3 u Documented by: Isosorbide Mononitrate (Imdur) 60 mg PO BID [facility] Last Admin: 06/18/20 20:42 Dose: 60 mg Documented by: Lisinopril (Zestril) 40 mg PO DAILY [facility] Last Admin: 09/19/20 08:25 Dose: 40 mg Documented by: Loratadine (Claritin) 10 mg PO QHS [facility] Last Admin: 06/18/20 20:42 Dose: 10 mg Documented by: Multivitamins/Minerals (Multivitamin With Minerals (Bkc)) 1 tablet PO DAILY@0800 [facility] Last Admin: 06/19/20 08:24 Dose: 1 tablet Documented by: Ondansetron HCl (Zofran) 4 mg IV Q8H PRN PRN PRN Reason: NAUSEA/VOMITING Pantoprazole Sodium (Protonix) 20 mg PO DAILY [facility] Last Admin: 06/19/20 08:24 Dose: 20 mg Documented by: Potassium Chloride (K-Dur) 10 meq PO DAILY [facility] Last Admin: 06/19/20 08:25 Dose: 10 meq Documented by: Sodium Chloride () 10 - 40 ml IV UD PRN PRN Reason: SALINE FLUSH Last Admin: 06/17/20 13:36 Dose: 10 ml Documented by: STROKE Vital Signs/Narrative: Vital Signs Pulse Pulse Ox 06/19/20 09:00 60 06/19/20 07:00 95 Medical Necessity - Tobacco Use Smoking Status: Former smoker Assessment/Plan All Active Problems (Last Reviewed 06/14/20 @ 04:[address] Pedro Ferreira MD) Sepsis (Acute) Severe acute respiratory syndrome coronavirus 2 (SARS-CoV-2) infection ruled out (Acute) COVID-19 virus infection (Acute) Chest tightness (Resolved) Hypertensive urgency (Resolved) Left wrist pain (Resolved) Syncopal episodes (Resolved) Ureteral calculus, right (Resolved) 1. COVID-19 infection * on remdesivir, dexamethasone * likely viral pneumonia +/- bacterial pneumonia. On Pip/tazo * ID following 2. Sepsis * POA * 2/2 above. * follow up cultures 3. acute hypoxic respiratory failure * improving * 2/2 above * still requiring BiPAP, currently on high-flow humidified oxygen. * mgmt per CCM 4. Hypoglycemia * resolved * 2/2 above and glimepiride * hold glimepiride * now hyperglycemic. on SSI. 5. Afib * on amiodarone, carveilol, apixaban 6. VTE prophylaxis: already anticoagulated. Inpatient E&M: [id number] [facility] Hosp L2
[2020-06-19] MEDS: Lisinopril 40 MG Tablet PO (11:31)
[2020-06-19] MEDS: Carvedilol 25 MG Tablet PO ×2 (11:31→20:25)
[2020-06-19] MEDS: Isosorbide Mononitrate 60 MG Tablet PO ×2 (11:31→20:26)
[2020-06-19 11:35] LABS: Bedside Glucose 270 mg/dL (70-110)
[2020-06-19 16:55] LABS: Bedside Glucose 316 mg/dL (70-110)
[2020-06-19] MEDS: Loratadine 10 MG Tablet PO (20:25)
[2020-06-19] MEDS: Atorvastatin Calcium 40 MG Tablet PO (20:26)
[2020-06-19 23:05] LABS: Bedside Glucose 368 mg/dL (70-110)
[2020-06-19] MEDS: Ipratropium/Albuterol Sulfate 3 ML AMPUL.NEB INHALATION (23:48)
[2020-06-20] VITALS (20 sets, daily range): BP systolic 127–151; BP diastolic 62–77; PULSE 51–68; RESP 12–24; TEMP 36.2–36.8; O2SAT 88–96
--- NOTE | 2020-06-20 01:00 | CPS ---
pt refused to wear the BIPAP at night and wanted to stay on the NC
--- NOTE | 2020-06-20 06:13 | PCM.PN.INT ---
Subjective: The patient was seen and examined at the bedside this morning. Events from the last 24 hours have been reviewed. The patient is currently afebrile, hemodynamically stable and maintaining appropriate oxygen saturations on 4 L/min via nasal cannula. The patient remains systemically anticoagulated on Eliquis. Objective: The patient's most recent lab work, culture data and imaging studies have all been personally reviewed. Coronavirus PCR was positive on June 06. Blood, urine and sputum cultures have shown no growth to date. General: Alert, Cooperative, No apparent distress, - - Sitting in bedside recliner. HEENT: Atraumatic, Normocephalic Oral: No Gingival or Mucosal Lesions/ Ulcerations Neck: Supple, No Nodes, Trachea Midline Lungs: Diminished, - - No conversational dyspnea or accessory muscle use. Cardiovascular: Regular rate, Regular Rhythm Abdomen: Bowel Sounds Present, Soft, Non Tender, Obese Extremities: No clubbing, No cyanosis, No edema Skin: No breakdown Musculoskeletal: No Muscle Wasting Lymphatic: No Cervical, Supraclavicular, or Inguinal Adenopathy Neurological: Neuro grossly intact Psych/Mental Status: Normal Affect, Appropriate Vital Signs Temp Pulse Resp BP Pulse Ox 97.4 F L 59 L 20 H 128/69 H 94 06/20/20 05:00 06/20/20 06:00 06/20/20 06:00 06/20/20 06:00 06/20/20 06:00 Oxygen Flow Rate (L/min) 4 Oxygen Delivery Method Nasal Cannula Weight: 203 lb 14.841 oz Body Mass Index (BMI) 30.2 Finger Stick Blood Glucose 104 Intake and Output for Last 24 Hours 06/18/20 06/19/20 06/20/20 23:59 23:59 23:59 Intake Total 721.75 / 721.75 393.5 / 393.5 Output Total 2080 / 2080 2380 / 2380 600 / 600 Balance -1358.25 / -1358.25 -1986.5 / -1986.5 -600 / -600 Labs (Last 48 Hours) 06/18/20 06/18/20 06/18/20 08:23 11:39 16:56 WBC RBC Hgb Hct MCV MCH MCHC RDW Std Deviation RDW Coeff of Azeem Plt Count MPV Sodium Potassium Chloride Carbon Dioxide Anion Gap BUN Creatinine Estim Creat Clear Calc Est GFR (MDRD) Af Amer Est GFR (MDRD) Non-Af BUN/Creatinine Ratio Glucose Calcium Total Bilirubin AST ALT Alkaline Phosphatase Total Protein Albumin Globulin Albumin/Globulin Ratio POC Glucose 191 H 283 H 310 H 06/18/20 06/19/20 06/19/20 20:38 03:50 03:50 WBC 9.7 RBC 2.76 L Hgb 7.8 L Hct 24.1 L MCV 87.3 MCH 28.3 MCHC 32.4 RDW Std Deviation 55.1 H RDW Coeff of Azeem 17.3 H Plt Count 237 MPV 11.4 Sodium 141 Potassium 4.1 Chloride 107 Carbon Dioxide 28.0 Anion Gap 6 BUN 46 H Creatinine 1.79 H Estim Creat Clear Calc 33.34 Est GFR (MDRD) Af Amer 48 L Est GFR (MDRD) Non-Af 40 L BUN/Creatinine Ratio 25.7 H Glucose 213 H Calcium 8.0 L Total Bilirubin 0.40 AST 39 H ALT 63 H Alkaline Phosphatase 52 Total Protein 5.8 L Albumin 1.9 L Globulin 3.9 Albumin/Globulin Ratio 0.5 L POC Glucose 354 H 06/19/20 06/19/20 06/19/20 08:20 11:28 16:47 WBC RBC Hgb Hct MCV MCH MCHC RDW Std Deviation RDW Coeff of Azeem Plt Count MPV Sodium Potassium Chloride Carbon Dioxide Anion Gap BUN Creatinine Estim Creat Clear Calc Est GFR (MDRD) Af Amer Est GFR (MDRD) Non-Af BUN/Creatinine Ratio Glucose Calcium Total Bilirubin AST ALT Alkaline Phosphatase Total Protein Albumin Globulin Albumin/Globulin Ratio POC Glucose 209 H 270 H 316 H 06/19/20 20:27 WBC RBC Hgb Hct MCV MCH MCHC RDW Std Deviation RDW Coeff of Azeem Plt Count MPV Sodium Potassium Chloride Carbon Dioxide Anion Gap BUN Creatinine Estim Creat Clear Calc Est GFR (MDRD) Af Amer Est GFR (MDRD) Non-Af BUN/Creatinine Ratio Glucose Calcium Total Bilirubin AST ALT Alkaline Phosphatase Total Protein Albumin Globulin Albumin/Globulin Ratio POC Glucose 368 H Microbiology 06/16/20 16:54 Sputum, Expectorated/Coughed Gram Stain - Final 06/16/20 16:54 Sputum, Expectorated/Coughed Respiratory Culture - Final Mixed normal respiratory montserrat. No Streptococcus pneumoniae, beta-hemolytic Streptococcus or Staphylococcus aureus isolated. 06/14/20 01:15 Blood Culture (Wb) #2 - Right Hand Blood Culture - Final No growth in 5 days. 06/14/20 01:00 Blood Culture (Wb) - Anticubital Left Blood Culture - Final No growth in 5 days. Clinical Impression(s) from Imaging Studies Chest X-Ray 06/14/20 00:54 IMPRESSION: Bilateral pneumonia to include viral pneumonia. Electronically Signed: Joel Leonard MD at 2:40 EDT , Service support , Medical Necessity - Tobacco Use Smoking Status: Former smoker Assessment/Plan All Active Problems (Last Reviewed 06/14/20 @ 04:[address] Pedro Ferreira MD) Sepsis (Acute) Severe acute respiratory syndrome coronavirus 2 (SARS-CoV-2) infection ruled out (Acute) COVID-19 virus infection (Acute) Chest tightness (Resolved) Hypertensive urgency (Resolved) Left wrist pain (Resolved) Syncopal episodes (Resolved) Ureteral calculus, right (Resolved) RECOMMENDATIONS: 1. Continue to wean supplemental oxygen to maintain saturations at or above 90%. 2. Continue Eliquis. Continue Decadron to complete 10-day treatment course. 3. Encourage incentive spirometer use and mobilize patient as tolerated. 4. Continue diuretic regimen as tolerated by hemodynamics and renal function. IMPRESSIONS: 1. Acute hypoxic respiratory failure secondary to COVID-19 Improving clinically. Continue to wean supplemental oxygen to maintain saturations at or above 90%. Continue Eliquis as ordered. The patient has completed a treatment course of remdesevir and already received convalescent plasma. Plan to complete a 10-day treatment course of Decadron. Anticipate supplemental oxygen need at the time of discharge. 2. Severe sepsis secondary to viral pneumonia Continue current supportive measures as noted above. Encourage incentive spirometer use and mobilize patient as tolerated. 3. History of A. fib/diastolic congestive heart failure/hypertension Continue beta-blockade and diuretic regimen as tolerated by hemodynamics and renal function. 4. Advanced age/rheumatoid/dementia/SUPA/CKD stage III/diabetes mellitus Complicates care, management, recovery and prognosis. Continue nocturnal CPAP therapy per home regimen. This note was generated with [employer] software. It may contain incorrect words, spelling, and punctuation that were not noted in checking the note before signing. Inpatient E&M: 56947 [facility] Hosp L3
[2020-06-20] MEDS: Amiodarone 200 MG Tablet 100 MG PO (08:39)
[2020-06-20] MEDS: DULoxetine Hcl 60 MG Capsule PO (08:39)
[2020-06-20] MEDS: Lisinopril 40 MG Tablet PO (08:39)
[2020-06-20] MEDS: Carvedilol 25 MG Tablet PO ×2 (08:39→20:02)
[2020-06-20] MEDS: dilTIAZem CD 180 MG Capsule 360 MG PO (08:39)
[2020-06-20] MEDS: Isosorbide Mononitrate 60 MG Tablet PO ×2 (08:39→20:02)
[2020-06-20] MEDS: Gabapentin 600 MG Tablet PO ×2 (08:39→20:02)
[2020-06-20] MEDS: Calcium Carb/Vitamin D 1 TABLET Tablet PO (08:40)
[2020-06-20] MEDS: Pantoprazole Sodium 20 MG Tablet PO (08:40)
[2020-06-20] MEDS: dexAMETHasone 10 MG/ML Vial 6 MG IV (08:40)
[2020-06-20] MEDS: amLODIPine 10 MG Tablet PO (08:40)
[2020-06-20] MEDS: guaiFENesin 1,200 MG Tablet 1200 MG PO ×2 (08:40→20:02)
[2020-06-20] MEDS: Multivitamins,Ther W-Minerals Tablet 1 TABLET PO (08:40)
[2020-06-20] MEDS: APIXABAN 5 MG TABLET PO ×2 (08:40→20:02)
[2020-06-20] MEDS: Furosemide 40 MG Tablet PO (08:40)
[2020-06-20] MEDS: Insulin Lispro 100 UNIT/ML INSULN.PEN SC ×4 (08:42→20:03)
[2020-06-20 09:26] LABS: Bedside Glucose 225 mg/dL (70-110)
--- NOTE | 2020-06-20 11:37 | PCM.PN.HOSP ---
Patient Problems: Active and Suspected Problems (Last Reviewed 06/14/20 @ 04:[address] Pedro Ferreira MD) Sepsis (Acute) Severe acute respiratory syndrome coronavirus 2 (SARS-CoV-2) infection ruled out (Acute) COVID-19 virus infection (Acute) Reason for Visit: COVID-19 Subjective: Breathing well. Still with coughing fits with clear phlegm. Vitals/I&O's: Vital Signs Temp Pulse Resp BP Pulse Ox 36.8 C 65 18 132/77 H 92 06/20/20 08:00 06/20/20 11:00 06/20/20 08:00 06/20/20 08:00 06/20/20 08:00 Oxygen Flow Rate (L/min) 4 Oxygen Delivery Method Nasal Cannula Weight: 92.5 kg Body Mass Index (BMI) 30.2 Finger Stick Blood Glucose 104 Intake and Output for Last 24 Hours 06/18/20 06/19/20 06/20/20 23:59 23:59 23:59 Intake Total 721.75 / 721.75 393.5 / 393.5 Output Total 0 / 0 2380 / 2380 950 / 950 Balance -1358.25 / -1358.25 -1986.5 / -1986.5 -950 / -950 General: Alert, No apparent distress HEENT: Atraumatic, Normocephalic Oral: Moist Mucosa, No Gingival or Mucosal Lesions/ Ulcerations Neck: No Nodes, Thyroid Normal Size and Texture Lungs: Normal air movement, Wheezes Cardiovascular: Regular rate, Regular Rhythm, Normal S1, Normal S2, No murmurs Abdomen: Bowel Sounds Present, Soft, Non Tender, Non-Distended, No Hepato-splenomegaly Extremities: No edema, No Calf Tenderness Psych/Mental Status: Normal Affect, Appropriate Microbiology Past 72 Hours 06/16/20 16:54 Sputum, Expectorated/Coughed Gram Stain - Final 06/16/20 16:54 Sputum, Expectorated/Coughed Respiratory Culture - Final Mixed normal respiratory montserrat. No Streptococcus pneumoniae, beta-hemolytic Streptococcus or Staphylococcus aureus isolated. 06/14/20 01:15 Blood Culture (Wb) #2 - Right Hand Blood Culture - Final No growth in 5 days. 06/14/20 01:00 Blood Culture (Wb) - Anticubital Left Blood Culture - Final No growth in 5 days. Laboratory Results 06/19/20 16:47: POC Glucose 316 H 06/19/20 20:27: POC Glucose 368 H 06/20/20 08:25: POC Glucose 225 H Current Medications Acetaminophen (Tylenol) 650 mg PO Q6H PRN PRN PRN Reason: Pain Score 1-10/Temp > 100.7 F Albuterol/Ipratropium (Duoneb) 3 ml INHALATION Q4HWA.RT PRN PRN Reason: sob/wheezing Last Admin: 06/19/20 23:48 Dose: 3 ml Documented by: Amiodarone HCl (Cordarone) 100 mg PO DAILY [facility] Last Admin: 06/20/20 08:39 Dose: 100 mg Documented by: Amlodipine Besylate (Norvasc) 10 mg PO DAILY [facility] Last Admin: 06/20/20 08:40 Dose: 10 mg Documented by: Apixaban (Eliquis) 5 mg PO BID [facility] Last Admin: 06/20/20 08:40 Dose: 5 mg Documented by: Atorvastatin Calcium (Lipitor) 40 mg PO QHS [facility] Last Admin: 06/19/20 20:26 Dose: 40 mg Documented by: Calcium/Vitamin D (Os-Abiel 500mg + D) 1 tablet PO DAILY [facility] Last Admin: 06/20/20 08:40 Dose: 1 tablet Documented by: Carvedilol (Coreg) 25 mg PO BID [facility] Last Admin: 06/20/20 08:39 Dose: 25 mg Documented by: Dexamethasone Sodium Phosphate (Decadron) 6 mg IV DAILY [facility] Stop: 06/23/20 10:01 Last Admin: 06/20/20 08:40 Dose: 6 mg Documented by: Dextrose (D50w Syringe) 0 gm IV X1 PRN; Protocol PRN Reason: Hypoglycemia Diltiazem HCl (Cardizem Cd) 360 mg PO DAILY [facility] Last Admin: 06/20/20 08:39 Dose: 360 mg Documented by: Duloxetine HCl (Cymbalta) 60 mg PO DAILY [facility] Last Admin: 06/20/20 08:39 Dose: 60 mg Documented by: Furosemide (Lasix) 40 mg PO DAILY@0800 [facility] Last Admin: 06/20/20 08:40 Dose: 40 mg Documented by: Gabapentin (Neurontin) 600 mg PO BID [facility] Last Admin: 06/20/20 08:39 Dose: 600 mg Documented by: Glucagon () 1 mg IM .X1 PRN PRN Reason: Hypoglycemia Guaifenesin (Mucinex) 1,200 mg PO BID [facility] Last Admin: 06/20/20 08:40 Dose: 1,200 mg Documented by: Sodium Chloride () 250 mls @ 15 mls/hr IV .[id number] PRN PRN Reason: Saline Flush Last Infusion: 06/19/20 04:00 Dose: 0 mls/hr Documented by: Sodium Chloride () 250 mls @ 15 mls/hr IV .[id number] PRN PRN Reason: Additional IVPB Infusion Insulin Glargine (Lantus ([facility])) 30 units SC DAILY [facility] Insulin Human Lispro (Humalog Kwikpen ([facility])) 0 unit SC ACHS [facility]; Protocol Last Admin: 06/20/20 08:42 Dose: 6 u Documented by: Isosorbide Mononitrate (Imdur) 60 mg PO BID [facility] Last Admin: 06/20/20 08:39 Dose: 60 mg Documented by: Lisinopril (Zestril) 40 mg PO DAILY [facility] Last Admin: 06/20/20 08:39 Dose: 40 mg Documented by: Loratadine (Claritin) 10 mg PO QHS [facility] Last Admin: 06/19/20 20:25 Dose: 10 mg Documented by: Multivitamins/Minerals (Multivitamin With Minerals ([facility])) 1 tablet PO DAILY@0800 [facility] Last Admin: 06/20/20 08:40 Dose: 1 tablet Documented by: Ondansetron HCl (Zofran) 4 mg IV Q8H PRN PRN PRN Reason: NAUSEA/VOMITING Pantoprazole Sodium (Protonix) 20 mg PO DAILY [facility] Last Admin: 06/20/20 08:40 Dose: 20 mg Documented by: Potassium Chloride (K-Dur) 10 meq PO DAILY [facility] Last Admin: 06/19/20 08:25 Dose: 10 meq Documented by: Sodium Chloride () 10 - 40 ml IV UD PRN PRN Reason: SALINE FLUSH Last Admin: 06/17/20 13:36 Dose: 10 ml Documented by: STROKE Vital Signs/Narrative: Vital Signs Temp Pulse Resp BP Pulse Ox 06/20/20 11:00 65 06/20/20 08:00 36.8 C 59 L 18 132/77 H 92 Medical Necessity - Tobacco Use Smoking Status: Former smoker Assessment/Plan All Active Problems (Last Reviewed 06/14/20 @ 04:[address] Pedro Ferreira MD) Sepsis (Acute) Severe acute respiratory syndrome coronavirus 2 (SARS-CoV-2) infection ruled out (Acute) COVID-19 virus infection (Acute) Chest tightness (Resolved) Hypertensive urgency (Resolved) Left wrist pain (Resolved) Syncopal episodes (Resolved) Ureteral calculus, right (Resolved) 1. COVID-19 infection on remdesivir, dexamethasone likely viral pneumonia +/- bacterial pneumonia. On Pip/tazo ID following 2. Sepsis POA 2/2 above. follow up cultures 3. acute hypoxic respiratory failure improving 2/2 above still requiring BiPAP, currently on high-flow humidified oxygen. mgmt per CCM 4. Hypoglycemia resolved 2/2 above and glimepiride hold glimepiride now hyperglycemic. on SSI. 5. Afib on amiodarone, carveilol, apixaban 6. DM2, uncontrolled glargine increased to 30 continue SSI exacerbated by steroids. check A1c 7. VTE prophylaxis: already anticoagulated. Inpatient E&M: 39704 Subs Hosp L2
[2020-06-20 12:26] LABS: Bedside Glucose 281 mg/dL (70-110)
[2020-06-20 13:10] LABS: Hemoglobin A1c 6.6 % (3.8-5.6)
--- NOTE | 2020-06-20 14:04 | CPS ---
Changed to CPAP of 15, which is his home settings.
--- NOTE | 2020-06-20 15:21 | PCM.PN.ID ---
Patient Problems: Active and Suspected Problems (Last Reviewed 06/14/20 @ 04:[address] Pedro Ferreira MD) Sepsis (Acute) Severe acute respiratory syndrome coronavirus 2 (SARS-CoV-2) infection ruled out (Acute) COVID-19 virus infection (Acute) Subjective: On nippv, no fever - Physical Exam Vitals/I&O's: Vital Signs Temp Pulse Resp BP Pulse Ox 98.0 F 59 L 22 H 145/64 H 93 06/20/20 12:00 06/20/20 13:40 06/20/20 13:40 06/20/20 12:00 06/20/20 12:00 Oxygen Flow Rate (L/min) 3 Oxygen Delivery Method CPAP Weight: 92.5 kg Body Mass Index (BMI) 30.2 Finger Stick Blood Glucose 104 Intake and Output for Last 24 Hours 06/18/20 06/19/20 06/20/20 23:59 23:59 23:59 Intake Total 721.75 / 721.75 393.5 / 393.5 1400 / 1400 Output Total 2080 / 2080 2380 / 2380 1150 / 1150 Balance -1358.25 / -1358.25 -1986.5 / -1986.5 250 / 250 General: No apparent distress Lungs: Diminished Cardiovascular: Bradycardic Abdomen: Soft, Non Tender, Non-Distended Skin: No rashes Microbiology Past 72 Hours 06/16/20 16:54 Sputum, Expectorated/Coughed Gram Stain - Final 06/16/20 16:54 Sputum, Expectorated/Coughed Respiratory Culture - Final Mixed normal respiratory montserrat. No Streptococcus pneumoniae, beta-hemolytic Streptococcus or Staphylococcus aureus isolated. 06/14/20 01:15 Blood Culture (Wb) #2 - Right Hand Blood Culture - Final No growth in 5 days. 06/14/20 01:00 Blood Culture (Wb) - Anticubital Left Blood Culture - Final No growth in 5 days. Laboratory Results 06/19/20 03:50: Hemoglobin A1c 6.6 H 06/19/20 16:47: POC Glucose 316 H 06/19/20 20:27: POC Glucose 368 H 06/20/20 08:25: POC Glucose 225 H 06/20/20 11:49: POC Glucose 281 H Current Medications Acetaminophen (Tylenol) 650 mg PO Q6H PRN PRN PRN Reason: Pain Score 1-10/Temp > 100.7 F Albuterol/Ipratropium (Duoneb) 3 ml INHALATION Q4HWA.RT PRN PRN Reason: sob/wheezing Last Admin: 06/19/20 23:48 Dose: 3 ml Documented by: Amiodarone HCl (Cordarone) 100 mg PO DAILY [facility] Last Admin: 06/20/20 08:39 Dose: 100 mg Documented by: Amlodipine Besylate (Norvasc) 10 mg PO DAILY [facility] Last Admin: 06/20/20 08:40 Dose: 10 mg Documented by: Apixaban (Eliquis) 5 mg PO BID [facility] Last Admin: 06/20/20 08:40 Dose: 5 mg Documented by: Atorvastatin Calcium (Lipitor) 40 mg PO QHS [facility] Last Admin: 06/19/20 20:26 Dose: 40 mg Documented by: Calcium/Vitamin D (Os-Abiel 500mg + D) 1 tablet PO DAILY [facility] Last Admin: 06/20/20 08:40 Dose: 1 tablet Documented by: Carvedilol (Coreg) 25 mg PO BID [facility] Last Admin: 06/20/20 08:39 Dose: 25 mg Documented by: Dexamethasone Sodium Phosphate (Decadron) 6 mg IV DAILY [facility] Stop: 06/23/20 10:01 Last Admin: 06/20/20 08:40 Dose: 6 mg Documented by: Dextrose (D50w Syringe) 0 gm IV X1 PRN; Protocol PRN Reason: Hypoglycemia Diltiazem HCl (Cardizem Cd) 360 mg PO DAILY [facility] Last Admin: 06/20/20 08:39 Dose: 360 mg Documented by: Duloxetine HCl (Cymbalta) 60 mg PO DAILY [facility] Last Admin: 06/20/20 08:39 Dose: 60 mg Documented by: Furosemide (Lasix) 40 mg PO DAILY@0800 [facility] Last Admin: 06/20/20 08:40 Dose: 40 mg Documented by: Gabapentin (Neurontin) 600 mg PO BID [facility] Last Admin: 06/20/20 08:39 Dose: 600 mg Documented by: Glucagon () 1 mg IM .X1 PRN PRN Reason: Hypoglycemia Guaifenesin (Mucinex) 1,200 mg PO BID [facility] Last Admin: 06/20/20 08:40 Dose: 1,200 mg Documented by: Sodium Chloride () 250 mls @ 15 mls/hr IV .[id number] PRN PRN Reason: Saline Flush Last Infusion: 06/19/20 04:00 Dose: 0 mls/hr Documented by: Sodium Chloride () 250 mls @ 15 mls/hr IV .[id number] PRN PRN Reason: Additional IVPB Infusion Insulin Glargine (Lantus ([facility])) 30 units SC DAILY [facility] Insulin Human Lispro (Humalog Kwikpen ([facility])) 0 unit SC ACHS [facility]; Protocol Last Admin: 06/20/20 11:52 Dose: 9 u Documented by: Isosorbide Mononitrate (Imdur) 60 mg PO BID [facility] Last Admin: 06/20/20 08:39 Dose: 60 mg Documented by: Lisinopril (Zestril) 40 mg PO DAILY [facility] Last Admin: 06/20/20 08:39 Dose: 40 mg Documented by: Loratadine (Claritin) 10 mg PO QHS [facility] Last Admin: 06/19/20 20:25 Dose: 10 mg Documented by: Multivitamins/Minerals (Multivitamin With Minerals ([facility])) 1 tablet PO DAILY@0800 [facility] Last Admin: 06/20/20 08:40 Dose: 1 tablet Documented by: Ondansetron HCl (Zofran) 4 mg IV Q8H PRN PRN PRN Reason: NAUSEA/VOMITING Pantoprazole Sodium (Protonix) 20 mg PO DAILY [facility] Last Admin: 06/20/20 08:40 Dose: 20 mg Documented by: Potassium Chloride (K-Dur) 10 meq PO DAILY [facility] Last Admin: 06/20/20 08:27 Dose: 10 meq Documented by: Sodium Chloride () 10 - 40 ml IV UD PRN PRN Reason: SALINE FLUSH Last Admin: 06/17/20 13:36 Dose: 10 ml Documented by: Medical Necessity - Tobacco Use Smoking Status: Former smoker Route of nutrition/ use of supplements: [] Nutritional Intake: [] IV Site: [] Castellano Catheter: [] - Assessment/Plan Antibiotics: [] Assessment/Plan: [] Active and Suspected Problems (Last Reviewed 06/14/20 @ 04:[address] Pedro Ferreira MD) Sepsis (Acute) Severe acute respiratory syndrome coronavirus 2 (SARS-CoV-2) infection ruled out (Acute) COVID-19 virus infection (Acute) Covid with sepsis, acute hypoxic resp failure, lymphopenia, elevated PCT - sx started 06/02, covid pcr (+) 06/06/20. Completed remdesivir. Received plasma. MRSA pcr neg. UAgs neg. On dexamethasone and eliquis. Completed zosyn. Sputum with oral montserrat. Will follow
[2020-06-20 16:46] LABS: Bedside Glucose 280 mg/dL (70-110)
[2020-06-20] MEDS: Atorvastatin Calcium 40 MG Tablet PO (20:02)
[2020-06-20] MEDS: Loratadine 10 MG Tablet PO (20:02)
[2020-06-20 23:26] LABS: Bedside Glucose 365 mg/dL (70-110)
[2020-06-21] VITALS (13 sets, daily range): BP systolic 122–139; BP diastolic 53–72; PULSE 52–59; RESP 14–35; TEMP 36.6–36.9; O2SAT 88–99
[2020-06-21 04:35] LABS: Absolute Lymphocyte Count 1.21 X10^3/uL (0.83-4.51); Absolute Neutrophil Count 6.8 X10^3/uL (2.0-7.7); Basophil# 0.01 X10^3/uL; Basophil% 0.1 % (0-1); Hematocrit 24.3 % (40-54); Lymphocyte # 1.21 X10^3/ul (4.0); Lymphocyte % 14.3 % (19-41); Mean Corp Hgb Conc 32.9 g/dL (32-36); Mean Corpuscular Hgb 28.8 pg (27.0-32.0); Mean Corpuscular Volume 87.4 fL (80-94); Mean Platelet Vol. 11.2 fl (6.2-12.0); Monocyte# 0.33 X10^3/uL; Monocyte% 3.9 % (0-10); NRBC Flagged by Analyzer 0.2 % (0-5); Neutrophil % 80.5 % (47-70); Platelet Count 254 K/mm3 (150-450); RBC Distribution Width CV 17.2 % (11.6-14.6); Red Blood Count 2.78 M/mm3 (4.6-6.2); White Blood Count 8.5 K/mm3 (4.4-11.0)
[2020-06-21 05:04] LABS: Anion Gap 5 (5-15); BUN 47 mg/dL (7-18); BUN/Creat Ratio 32.9 RATIO (10-20); Calcium,Total 8.2 mg/dL (8.5-10.1); Chloride 108 mmol/L (98-107); Creatinine, Serum 1.43 mg/dL (0.70-1.30); EST Glomerular Filtration Rate 51 mL/min (>60); Est Glom Filt Rate - Afr Amer 62 mL/min (>60); Estimated Creatinine Clearance 41.73 ml/min; Glucose 246 mg/dL (74-106); Potassium 4.2 mmol/L (3.5-5.1); Sodium Level 142 mmol/L (136-145)
--- NOTE | 2020-06-21 06:33 | PCM.PN.INT ---
Subjective: The patient was seen and examined at the bedside this morning. Events from the last 24 hours have been reviewed. The patient is currently afebrile, hemodynamically stable and maintaining appropriate oxygen saturations on 2 L/min via nasal cannula. The patient tolerated CPAP at his home settings last night. He does still have some residual dyspnea and cough. However, he has improved clinically. He has completed his treatment courses of remdesevir and convalescent plasma. He is currently on day 8 of Decadron. Blood sugars remain elevated. Objective: The patient's most recent lab work, culture data and imaging studies have all been personally reviewed. Coronavirus PCR was positive on June 06. Blood, urine and sputum cultures have shown no growth to date. General: Alert, Cooperative, No apparent distress HEENT: Atraumatic, Normocephalic Oral: Moist Mucosa Neck: Supple, No Nodes, Trachea Midline Lungs: Diminished Cardiovascular: Regular rate, Regular Rhythm Abdomen: Bowel Sounds Present, Soft, Non Tender, Obese Extremities: No clubbing, No cyanosis, No edema Skin: No breakdown Musculoskeletal: No Tenderness to Palpation of Joints or Extremities Lymphatic: No Cervical, Supraclavicular, or Inguinal Adenopathy Neurological: Cranial nerves II-XII grossly intact, Neuro grossly intact Psych/Mental Status: Normal Affect, Appropriate Vital Signs Temp Pulse Resp BP Pulse Ox 97.8 F 52 L 14 133/72 H 98 06/21/20 01:47 06/21/20 04:45 06/21/20 04:45 06/21/20 01:47 06/21/20 01:47 Oxygen Flow Rate (L/min) 2 Oxygen Delivery Method CPAP Weight: 205 lb 0.478 oz Body Mass Index (BMI) 30.2 Finger Stick Blood Glucose 104 Intake and Output for Last 24 Hours 06/19/20 06/20/20 06/21/20 23:59 23:59 23:59 Intake Total 393.5 / 393.5 1950 / 1950 200 / 200 Output Total 2380 / 2380 1900 / 1900 425 / 425 Balance -1986.5 / -1985.5 50 / 50 -225 / -225 Labs (Last 48 Hours) 06/19/20 06/19/20 06/19/20 03:50 08:20 11:28 WBC RBC Hgb Hct MCV MCH MCHC RDW Std Deviation RDW Coeff of Azeem Plt Count MPV Immature Gran % (Auto) Neut % (Auto) Lymph % (Auto) [place] % (Auto) Eos % (Auto) Baso % (Auto) Absolute Neuts (auto) Absolute Lymphs (auto) Nucleated RBC % Sodium Potassium Chloride Carbon Dioxide Anion Gap BUN Creatinine Estim Creat Clear Calc Est GFR (MDRD) Af Amer Est GFR (MDRD) Non-Af BUN/Creatinine Ratio Glucose Hemoglobin A1c 6.6 H Calcium POC Glucose 209 H 270 H 06/19/20 06/19/20 06/20/20 16:47 20:27 08:25 WBC RBC Hgb Hct MCV MCH MCHC RDW Std Deviation RDW Coeff of Azeem Plt Count MPV Immature Gran % (Auto) Neut % (Auto) Lymph % (Auto) [place] % (Auto) Eos % (Auto) Baso % (Auto) Absolute Neuts (auto) Absolute Lymphs (auto) Nucleated RBC % Sodium Potassium Chloride Carbon Dioxide Anion Gap BUN Creatinine Estim Creat Clear Calc Est GFR (MDRD) Af Amer Est GFR (MDRD) Non-Af BUN/Creatinine Ratio Glucose Hemoglobin A1c Calcium POC Glucose 316 H 368 H 225 H 06/20/20 06/20/20 06/20/20 11:49 16:17 19:54 WBC RBC Hgb Hct MCV MCH MCHC RDW Std Deviation RDW Coeff of Azeem Plt Count MPV Immature Gran % (Auto) Neut % (Auto) Lymph % (Auto) [place] % (Auto) Eos % (Auto) Baso % (Auto) Absolute Neuts (auto) Absolute Lymphs (auto) Nucleated RBC % Sodium Potassium Chloride Carbon Dioxide Anion Gap BUN Creatinine Estim Creat Clear Calc Est GFR (MDRD) Af Amer Est GFR (MDRD) Non-Af BUN/Creatinine Ratio Glucose Hemoglobin A1c Calcium POC Glucose 281 H 280 H 365 H 06/21/20 06/21/20 04:15 04:15 WBC 8.5 RBC 2.78 L Hgb 8.0 L Hct 24.3 L MCV 87.4 MCH 28.8 MCHC 32.9 RDW Std Deviation 55.0 H RDW Coeff of Azeem 17.2 H Plt Count 254 MPV 11.2 Immature Gran % (Auto) 1.200 H Neut % (Auto) 80.5 H Lymph % (Auto) 14.3 L [place] % (Auto) 3.9 Eos % (Auto) 0.0 Baso % (Auto) 0.1 Absolute Neuts (auto) 6.8 Absolute Lymphs (auto) 1.21 Nucleated RBC % 0.2 Sodium 142 Potassium 4.2 Chloride 108 H Carbon Dioxide 29.0 Anion Gap 5 BUN 47 H Creatinine 1.43 H Estim Creat Clear Calc 41.73 Est GFR (MDRD) Af Amer 62 Est GFR (MDRD) Non-Af 51 L BUN/Creatinine Ratio 32.9 H Glucose 246 H Hemoglobin A1c Calcium 8.2 L POC Glucose Microbiology 06/16/20 16:54 Sputum, Expectorated/Coughed Gram Stain - Final 06/16/20 16:54 Sputum, Expectorated/Coughed Respiratory Culture - Final Mixed normal respiratory montserrat. No Streptococcus pneumoniae, beta-hemolytic Streptococcus or Staphylococcus aureus isolated. 06/14/20 01:15 Blood Culture (Wb) #2 - Right Hand Blood Culture - Final No growth in 5 days. 06/14/20 01:00 Blood Culture (Wb) - Anticubital Left Blood Culture - Final No growth in 5 days. Clinical Impression(s) from Imaging Studies Chest X-Ray 06/14/20 00:54 IMPRESSION: Bilateral pneumonia to include viral pneumonia. Electronically Signed: Joel Leonard MD at 2:40 EDT , Service support , Medical Necessity - Tobacco Use Smoking Status: Former smoker Assessment/Plan All Active Problems (Last Reviewed 06/14/20 @ 04:[address] Pedro Ferreira MD) Sepsis (Acute) Severe acute respiratory syndrome coronavirus 2 (SARS-CoV-2) infection ruled out (Acute) COVID-19 virus infection (Acute) Chest tightness (Resolved) Hypertensive urgency (Resolved) Left wrist pain (Resolved) Syncopal episodes (Resolved) Ureteral calculus, right (Resolved) RECOMMENDATIONS: 1. Continue to wean supplemental oxygen to maintain saturations at or above 90%. 2. Continue Eliquis as ordered. 3. Given hyperglycemia and reluctance to use insulin, Decadron can be discontinued after today in preparation for discharge. 4. Encourage incentive spirometer use and mobilize patient as tolerated. 5. Continue diuretic regimen as tolerated by hemodynamics and renal function. 6. Perform walking oximetry study prior to consideration for discharge home. Anticipate home-going supplemental oxygen need. 7. The patient should follow-up in the pulmonary medicine clinic within 2 weeks of discharge. IMPRESSIONS: 1. Acute hypoxic respiratory failure secondary to COVID-19 Improving clinically. Continue to wean supplemental oxygen to maintain saturations at or above 90%. Continue Eliquis as ordered. The patient has completed a treatment course of remdesevir and already received convalescent plasma. Plan to complete a treatment course of Decadron. Anticipate supplemental oxygen need at the time of discharge. 2. Severe sepsis secondary to viral pneumonia Continue current supportive measures as noted above. Encourage incentive spirometer use and mobilize patient as tolerated. 3. History of A. fib/diastolic congestive heart failure/hypertension Continue beta-blockade and diuretic regimen as tolerated by hemodynamics and renal function. 4. Advanced age/rheumatoid/dementia/SUPA/CKD stage III/diabetes mellitus Complicates care, management, recovery and prognosis. Continue nocturnal CPAP therapy per home regimen. This note was generated with [employer] dictation software. It may contain incorrect words, spelling, and punctuation that were not noted in checking the note before signing. Inpatient E&M: 69006 Subs Hosp L2
--- NOTE | 2020-06-21 07:29 | PN_ITS ---
Patient Problems: Active and Suspected Problems (Last Reviewed 06/14/20 @ 04:[address] Pedro Ferreira MD) Sepsis (Acute) Severe acute respiratory syndrome coronavirus 2 (SARS-CoV-2) infection ruled out (Acute) COVID-19 virus infection (Acute) Vitals/I&O's: Vital Signs Temp Pulse Resp BP Pulse Ox 97.8 F 56 L 17 133/72 H 98 06/21/20 01:47 06/21/20 07:26 06/21/20 07:26 06/21/20 01:47 06/21/20 01:47 Oxygen Flow Rate (L/min) 2 Oxygen Delivery Method Nasal Cannula Weight: 93 kg Body Mass Index (BMI) 30.2 Finger Stick Blood Glucose 104 Intake and Output for Last 24 Hours 06/19/20 06/20/20 06/21/20 23:59 23:59 23:59 Intake Total 393.5 / 393.5 1950 / 1950 200 / 200 Output Total 2380 / 2380 1900 / 1900 425 / 425 Balance -1985.5 / -1985.5 50 / 50 -225 / -225 Microbiology Past 72 Hours 06/16/20 16:54 Sputum, Expectorated/Coughed Gram Stain - Final 06/16/20 16:54 Sputum, Expectorated/Coughed Respiratory Culture - Final Mixed normal respiratory montserrat. No Streptococcus pneumoniae, beta-hemolytic Streptococcus or Staphylococcus aureus isolated. 06/14/20 01:15 Blood Culture (Wb) #2 - Right Hand Blood Culture - Final No growth in 5 days. 06/14/20 01:00 Blood Culture (Wb) - Anticubital Left Blood Culture - Final No growth in 5 days. Laboratory Results 06/19/20 03:50: Hemoglobin A1c 6.6 H 06/20/20 08:25: POC Glucose 225 H 06/20/20 11:49: POC Glucose 281 H 06/20/20 16:17: POC Glucose 280 H 06/20/20 19:54: POC Glucose 365 H 06/21/20 04:15: WBC 8.5, RBC 2.78 L, Hgb 8.0 L, Hct 24.3 L, MCV 87.4, MCH 28.8, MCHC 32.9, RDW Std Deviation 55.0 H, RDW Coeff of Azeem 17.2 H, Plt Count 254, MPV 11.2, Immature Gran % (Auto) 1.200 H, Neut % (Auto) 80.5 H, Lymph % (Auto) 14.3 L, [place] % (Auto) 3.9, Eos % (Auto) 0.0, Baso % (Auto) 0.1, Absolute Neuts (auto) 6.8, Absolute Lymphs (auto) 1.21, Nucleated RBC % 0.2 06/21/20 04:15: Sodium 142, Potassium 4.2, Chloride 108 H, Carbon Dioxide 29.0, Anion Gap 5, BUN 47 H, Creatinine 1.43 H, Estim Creat Clear Calc 41.73, Est GFR (MDRD) Af Amer 62, Est GFR (MDRD) Non-Af 51 L, BUN/Creatinine Ratio 32.9 H, Glucose 246 H, Calcium 8.2 L Current Medications Acetaminophen (Tylenol) 650 mg PO Q6H PRN PRN PRN Reason: Pain Score 1-10/Temp > 100.7 F Albuterol/Ipratropium (Duoneb) 3 ml INHALATION Q4HWA.RT PRN PRN Reason: sob/wheezing Last Admin: 06/19/20 23:48 Dose: 3 ml Documented by: Amiodarone HCl (Cordarone) 100 mg PO DAILY [facility] Last Admin: 06/20/20 08:39 Dose: 100 mg Documented by: Amlodipine Besylate (Norvasc) 10 mg PO DAILY [facility] Last Admin: 06/20/20 08:40 Dose: 10 mg Documented by: Apixaban (Eliquis) 5 mg PO BID [facility] Last Admin: 06/20/20 20:02 Dose: 5 mg Documented by: Atorvastatin Calcium (Lipitor) 40 mg PO QHS [facility] Last Admin: 06/20/20 20:02 Dose: 40 mg Documented by: Calcium/Vitamin D (Os-Abiel 500mg + D) 1 tablet PO DAILY [facility] Last Admin: 06/20/20 08:40 Dose: 1 tablet Documented by: Carvedilol (Coreg) 25 mg PO BID [facility] Last Admin: 06/20/20 20:02 Dose: 25 mg Documented by: Dexamethasone Sodium Phosphate (Decadron) 6 mg IV DAILY [facility] Stop: 06/23/20 10:01 Last Admin: 06/20/20 08:40 Dose: 6 mg Documented by: Dextrose (D50w Syringe) 0 gm IV X1 PRN; Protocol PRN Reason: Hypoglycemia Diltiazem HCl (Cardizem Cd) 360 mg PO DAILY [facility] Last Admin: 06/20/20 08:39 Dose: 360 mg Documented by: Duloxetine HCl (Cymbalta) 60 mg PO DAILY [facility] Last Admin: 06/20/20 08:39 Dose: 60 mg Documented by: Furosemide (Lasix) 40 mg PO DAILY@0800 [facility] Last Admin: 06/20/20 08:40 Dose: 40 mg Documented by: Gabapentin (Neurontin) 600 mg PO BID [facility] Last Admin: 06/20/20 20:02 Dose: 600 mg Documented by: Glucagon () 1 mg IM .X1 PRN PRN Reason: Hypoglycemia Guaifenesin (Mucinex) 1,200 mg PO BID [facility] Last Admin: 06/20/20 20:02 Dose: 1,200 mg Documented by: Sodium Chloride () 250 mls @ 15 mls/hr IV .[id number] PRN PRN Reason: Saline Flush Last Infusion: 06/20/20 19:27 Dose: Infused Documented by: Sodium Chloride () 250 mls @ 15 mls/hr IV .[id number] PRN PRN Reason: Additional IVPB Infusion Insulin Glargine (Lantus (Bk)) 30 units SC DAILY [facility] Insulin Human Lispro (Humalog Kwikpen ([facility])) 0 unit SC ACHS [facility]; Protocol Last Admin: 06/20/20 20:03 Dose: 12 u Documented by: Isosorbide Mononitrate (Imdur) 60 mg PO BID [facility] Last Admin: 06/20/20 20:02 Dose: 60 mg Documented by: Lisinopril (Zestril) 40 mg PO DAILY [facility] Last Admin: 06/20/20 08:39 Dose: 40 mg Documented by: Loratadine (Claritin) 10 mg PO QHS [facility] Last Admin: 06/20/20 20:02 Dose: 10 mg Documented by: Multivitamins/Minerals (Multivitamin With Minerals (Bkc)) 1 tablet PO DAILY@0800 [facility] Last Admin: 06/20/20 08:40 Dose: 1 tablet Documented by: Ondansetron HCl (Zofran) 4 mg IV Q8H PRN PRN PRN Reason: NAUSEA/VOMITING Pantoprazole Sodium (Protonix) 20 mg PO DAILY [facility] Last Admin: 06/20/20 08:40 Dose: 20 mg Documented by: Potassium Chloride (K-Dur) 10 meq PO DAILY [facility] Last Admin: 06/20/20 08:27 Dose: 10 meq Documented by: Sodium Chloride () 10 - 40 ml IV UD PRN PRN Reason: SALINE FLUSH Last Admin: 06/17/20 13:36 Dose: 10 ml Documented by: STROKE Vital Signs/Narrative: Vital Signs Pulse Resp 06/21/20 07:26 56 L 17 06/21/20 04:45 52 L 14 06/21/20 04:24 54 L Medical Necessity - Tobacco Use Smoking Status: Former smoker Assessment/Plan All Active Problems (Last Reviewed 06/14/20 @ 04:[address] Pedro Ferreira MD) Sepsis (Acute) Severe acute respiratory syndrome coronavirus 2 (SARS-CoV-2) infection ruled out (Acute) COVID-19 virus infection (Acute) Chest tightness (Resolved) Hypertensive urgency (Resolved) Left wrist pain (Resolved) Syncopal episodes (Resolved) Ureteral calculus, right (Resolved)
[2020-06-21] MEDS: Insulin Lispro 100 UNIT/ML INSULN.PEN SC ×2 (08:02→11:01)
[2020-06-21] MEDS: dilTIAZem CD 180 MG Capsule 360 MG PO (08:02)
[2020-06-21] MEDS: Calcium Carb/Vitamin D 1 TABLET Tablet PO (08:03)
[2020-06-21] MEDS: Multivitamins,Ther W-Minerals Tablet 1 TABLET PO (08:03)
[2020-06-21] MEDS: guaiFENesin 1,200 MG Tablet 1200 MG PO (08:03)
[2020-06-21] MEDS: APIXABAN 5 MG TABLET PO (08:03)
[2020-06-21] MEDS: Isosorbide Mononitrate 60 MG Tablet PO (08:03)
[2020-06-21] MEDS: Lisinopril 40 MG Tablet PO (08:03)
[2020-06-21] MEDS: DULoxetine Hcl 60 MG Capsule PO (08:03)
[2020-06-21] MEDS: Gabapentin 600 MG Tablet PO (08:03)
[2020-06-21] MEDS: amLODIPine 10 MG Tablet PO (08:03)
[2020-06-21] MEDS: Amiodarone 200 MG Tablet 100 MG PO (08:04)
[2020-06-21] MEDS: 0.9% Saline Lock 10 ML Syringe IV (08:04)
[2020-06-21] MEDS: dexAMETHasone 10 MG/ML Vial 6 MG IV (08:04)
[2020-06-21] MEDS: Pantoprazole Sodium 20 MG Tablet PO (08:04)
[2020-06-21] MEDS: Carvedilol 25 MG Tablet PO (08:04)
[2020-06-21] MEDS: Furosemide 40 MG Tablet PO (08:04)
--- NOTE | 2020-06-21 10:03 | CASEMGMT ---
Addendum entered by Ruy Oscar 06/21/20 11:54: Script and documentation faxed to [facility] [place]. Call to [employer] portable tank will be delivered to [facility]. Nurse updated. No further needs identified. Jose LOMBARDO Original Note: RN AIDAN Note: Intro role of CM to patient in room via phone. Discussed that home oxygen may be needed on discharge and reviewed process for set up including portable tank being brought to hospital for ride home. Discussed area DME companies and patient prefers [employer]. Pt is aware of hospital affiliation with [employer]. Pt updated that DME providers would be wearing PPE in his home. -per Dr. Arroyo, pt will likely not be ordered insulin on dc. -per physical therapy and nursing- patient is ambulating safely and HHC is not recommended. Patient's will be home to assist if needed. DC PLAN: Home on discharge. [employer] for Home oxygen if needed. Jose LOMBARDO
--- NOTE | 2020-06-21 10:16 | PCM.DC ---
- Discharge Diagnoses Current Active Problems: Current Active and Chronic Problems (Last Reviewed 06/14/20 @ 04:[address] Pedro Ferreira MD) Sepsis (Acute) Severe acute respiratory syndrome coronavirus 2 (SARS-CoV-2) infection ruled out (Acute) COVID-19 virus infection (Acute) You will use the following diet at home:: Calorie/Carbohydrate Controlled (specify 1200, 1400, etc) - 1800 Your food should be the consistency of: Regular Discharge Activity: Return to Normal Activity Instructions: ED ALOC, ED AMPHETAMINE ABUSE Allergies/Adverse Reactions: Allergies aspirin Allergy (Severe, Verified 06/06/20 21:00) Mouth swelling donepezil [From Aricept] Adverse Reaction (Severe, Verified 06/06/20 21:00) Swelling morphine Adverse Reaction (Severe, Verified 06/06/20 21:00) UNABLE TO URINATE Medications to take at Discharge Infliximab-DYYB [Inflectra] 100 mg IV .COMPLEX 02/18/17 Esomeprazole Magnesium [Nexium 24Hr] 20 mg PO DAILY 04/15/17 Loratadine [Claritin] 10 mg PO QHS 04/15/17 Glimepiride [Amaryl] 2 mg PO DAILY 01/22/18 Balsalazide Disodium 750 mg PO BID 09/17/18 Multivit-Min/FA/Lycopen/Lutein [Centrum Silver Men Tablet] 1 ea PO DAILY 09/17/18 calcium carbonate-vitamin D3 600 mg (1,500 mg)-800 unit tablet 1 tab PO DAILY 06/02/19 duloxetine 60 mg capsule,delayed release 60 mg PO DAILY 06/02/19 gabapentin 600 mg tablet 600 mg PO BID tab 06/02/19 Ipratropium [place] 15 ml NS PRN PRN 01/11/20 Apixaban [Eliquis] 5 mg PO BID 03/24/20 DiphenhydrAMINE [Benadryl] 25 mg PO BID PRN PRN 03/24/20 Rosuvastatin Calcium 20 mg PO DAILY 03/24/20 potassium chloride 10 mEq tablet,extended release(part/cryst) 10 meq PO DAILY #30 tab 04/18/20 amiodarone 200 mg tablet 100 mg PO DAILY tab 05/25/20 amlodipine 10 mg tablet 10 mg PO DAILY tab 05/25/20 carvedilol 25 mg tablet 25 mg PO BID 05/25/20 furosemide 40 mg tablet 40 mg PO DAILY tab 05/25/20 hydralazine 100 mg tablet 100 mg PO TID tab 05/25/20 isosorbide mononitrate 60 mg tablet,extended release 24 hr 60 mg PO BID #60 tab 05/25/20 lisinopril 40 mg tablet 40 mg PO DAILY 05/25/20 Diltiazem HCl [Diltiazem 24Hr ER (Cd)] 360 mg PO DAILY 06/06/20 Primary Care Physician: Jayme Yang MD [Primary Care Provider] - Please follow up with your Primary Care Physician in: 1 week Test Results: Test results from this visit will be discussed in further detail at your follow-up appointment, if applicable. Proposed Discharge Date: 06/21/20
--- NOTE | 2020-06-21 10:19 | PCM.DC.SUM ---
Discharge Date and Diagnosis - Problem List Patient Problems: Active and Suspected Problems (Last Reviewed 06/14/20 @ 04:[address] Pedro Ferreira MD) Sepsis (Acute) Severe acute respiratory syndrome coronavirus 2 (SARS-CoV-2) infection ruled out (Acute) COVID-19 virus infection (Acute) Date of Admission: 06/14/20 Date of Discharge: 06/21/20 - Primary Discharge Diagnosis Acute Problems: Active Problems (Last Reviewed 06/14/20 @ 04:[address] Pedro Ferreira MD) Sepsis (Acute) Severe acute respiratory syndrome coronavirus 2 (SARS-CoV-2) infection ruled out (Acute) COVID-19 virus infection (Acute) - Secondary Discharge Diagnosis Chronic Problems: Chronic Problems (Last Reviewed 06/14/20 @ 04:[address] Pedro Ferreira MD) Kidney stones (Chronic) Dementia (Chronic) Ureterolithiasis (Chronic) A-fib (Chronic) Asthma (Chronic) Asymptomatic hypertensive urgency (Chronic) Essential hypertension (Chronic) Pulmonary hypertension (Chronic) RVSP 40 mmHg SUPA (obstructive sleep apnea) (Chronic) CPAP 15 cm of water Diverticula of colon (Chronic) Colitis (Chronic) Atrial fibrillation with RVR (Chronic) DM2 (diabetes mellitus, type 2) (Chronic) Hyperlipidemia (Chronic) Inflammatory bowel disease (Chronic) Benign essential HTN (Chronic) Rheumatoid aortitis (Chronic) Hospital Course and Treatment Imaging Results: Clinical Impression(s) from Imaging Studies Chest X-Ray 06/14/20 00:54 IMPRESSION: Bilateral pneumonia to include viral pneumonia. Electronically Signed: Joel Leonard MD at 2:40 EDT , Service support , Operations: None Summary of Care Provided: The patient is a 74 year old M entered with progressive shortness of breath 1. Sepsis secondary to COVID-19 infection with suspected superimposed bacteria pneumonia ?Patient managed with Remdesivir as well as dexamethasone and convalescent plasma in addition to Zosyn patient condition did improve discharge after a week of hospitalization 2. Acute hypoxic respiratory failure ?Secondary to above managed with supplemental oxygen. Patient was assessed for home oxygen on discharge which he did qualify he will need portability since he is mobile both at home as well as in the community 3. Diabetes mellitus ?With both hypo-and hyperglycemia. Adjusted patient treatment regimen 4. A. fib ?Patient on amiodarone and carvedilol as well as systemic anticoagulation with apixaban Patient Problems: Active and Suspected Problems (Last Reviewed 06/14/20 @ 04:[address] Pedro Ferreira MD) Sepsis (Acute) Severe acute respiratory syndrome coronavirus 2 (SARS-CoV-2) infection ruled out (Acute) COVID-19 virus infection (Acute) - Physical Exam Vitals/I&O's: Vital Signs Temp Pulse Resp BP Pulse Ox 98.4 F 57 L 18 139/67 H 99 06/21/20 08:00 06/21/20 08:00 06/21/20 08:00 06/21/20 08:00 06/21/20 08:00 Oxygen Flow Rate (L/min) 2 Oxygen Delivery Method Nasal Cannula Weight: 93 kg Body Mass Index (BMI) 30.2 Finger Stick Blood Glucose 104 Intake and Output for Last 24 Hours 06/19/20 06/20/20 06/21/20 23:59 23:59 23:59 Intake Total 393.5 / 393.5 1950 / 1950 200 / 200 Output Total 2380 / 2380 1900 / 1900 875 / 875 Balance -1986.5 / -1986.5 50 / 50 -675 / -675 General: Alert Neck: Supple Lungs: Diminished Neurological: Neuro grossly intact Psych/Mental Status: Normal Affect Microbiology Past 72 Hours 06/16/20 16:54 Sputum, Expectorated/Coughed Gram Stain - Final 06/16/20 16:54 Sputum, Expectorated/Coughed Respiratory Culture - Final Mixed normal respiratory montserrat. No Streptococcus pneumoniae, beta-hemolytic Streptococcus or Staphylococcus aureus isolated. 06/14/20 01:15 Blood Culture (Wb) #2 - Right Hand Blood Culture - Final No growth in 5 days. 06/14/20 01:00 Blood Culture (Wb) - Anticubital Left Blood Culture - Final No growth in 5 days. Laboratory Results 06/19/20 03:50: Hemoglobin A1c 6.6 H 06/20/20 11:49: POC Glucose 281 H 06/20/20 16:17: POC Glucose 280 H 06/20/20 19:54: POC Glucose 365 H 06/21/20 04:15: WBC 8.5, RBC 2.78 L, Hgb 8.0 L, Hct 24.3 L, MCV 87.4, MCH 28.8, MCHC 32.9, RDW Std Deviation 55.0 H, RDW Coeff of Azeem 17.2 H, Plt Count 254, MPV 11.2, Immature Gran % (Auto) 1.200 H, Neut % (Auto) 80.5 H, Lymph % (Auto) 14.3 L, [place] % (Auto) 3.9, Eos % (Auto) 0.0, Baso % (Auto) 0.1, Absolute Neuts (auto) 6.8, Absolute Lymphs (auto) 1.21, Nucleated RBC % 0.2 06/21/20 04:15: Sodium 142, Potassium 4.2, Chloride 108 H, Carbon Dioxide 29.0, Anion Gap 5, BUN 47 H, Creatinine 1.43 H, Estim Creat Clear Calc 41.73, Est GFR (MDRD) Af Amer 62, Est GFR (MDRD) Non-Af 51 L, BUN/Creatinine Ratio 32.9 H, Glucose 246 H, Calcium 8.2 L Current Medications Acetaminophen (Tylenol) 650 mg PO Q6H PRN PRN PRN Reason: Pain Score 1-10/Temp > 100.7 F Albuterol/Ipratropium (Duoneb) 3 ml INHALATION Q4HWA.RT PRN PRN Reason: sob/wheezing Last Admin: 06/19/20 23:48 Dose: 3 ml Documented by: Amiodarone HCl (Cordarone) 100 mg PO DAILY [facility] Last Admin: 06/21/20 08:04 Dose: 100 mg Documented by: Amlodipine Besylate (Norvasc) 10 mg PO DAILY [facility] Last Admin: 06/21/20 08:03 Dose: 10 mg Documented by: Apixaban (Eliquis) 5 mg PO BID [facility] Last Admin: 06/21/20 08:03 Dose: 5 mg Documented by: Atorvastatin Calcium (Lipitor) 40 mg PO QHS [facility] Last Admin: 06/20/20 20:02 Dose: 40 mg Documented by: Calcium/Vitamin D (Os-Abiel 500mg + D) 1 tablet PO DAILY [facility] Last Admin: 06/21/20 08:03 Dose: 1 tablet Documented by: Carvedilol (Coreg) 25 mg PO BID [facility] Last Admin: 06/21/20 08:04 Dose: 25 mg Documented by: Dexamethasone Sodium Phosphate (Decadron) 6 mg IV DAILY [facility] Stop: 06/23/20 10:01 Last Admin: 06/21/20 08:04 Dose: 6 mg Documented by: Dextrose (D50w Syringe) 0 gm IV X1 PRN; Protocol PRN Reason: Hypoglycemia Diltiazem HCl (Cardizem Cd) 360 mg PO DAILY [facility] Last Admin: 06/21/20 08:02 Dose: 360 mg Documented by: Duloxetine HCl (Cymbalta) 60 mg PO DAILY [facility] Last Admin: 06/21/20 08:03 Dose: 60 mg Documented by: Furosemide (Lasix) 40 mg PO DAILY@0800 [facility] Last Admin: 06/21/20 08:04 Dose: 40 mg Documented by: Gabapentin (Neurontin) 600 mg PO BID [facility] Last Admin: 06/21/20 08:03 Dose: 600 mg Documented by: Glucagon () 1 mg IM .X1 PRN PRN Reason: Hypoglycemia Guaifenesin (Mucinex) 1,200 mg PO BID [facility] Last Admin: 06/21/20 08:03 Dose: 1,200 mg Documented by: Sodium Chloride () 250 mls @ 15 mls/hr IV .[id number] PRN PRN Reason: Saline Flush Last Infusion: 06/20/20 19:27 Dose: Infused Documented by: Sodium Chloride () 250 mls @ 15 mls/hr IV .[id number] PRN PRN Reason: Additional IVPB Infusion Insulin Glargine (Lantus (Bk)) 30 units SC DAILY [facility] Last Admin: 06/21/20 08:02 Dose: 30 u Documented by: Insulin Human Lispro (Humalog Kwikpen (Bk)) 0 unit SC ACHS [facility]; Protocol Last Admin: 06/21/20 08:02 Dose: 6 u Documented by: Isosorbide Mononitrate (Imdur) 60 mg PO BID [facility] Last Admin: 06/21/20 08:03 Dose: 60 mg Documented by: Lisinopril (Zestril) 40 mg PO DAILY [facility] Last Admin: 06/21/20 08:03 Dose: 40 mg Documented by: Loratadine (Claritin) 10 mg PO QHS [facility] Last Admin: 06/20/20 20:02 Dose: 10 mg Documented by: Multivitamins/Minerals (Multivitamin With Minerals (Bkc)) 1 tablet PO DAILY@0800 [facility] Last Admin: 06/21/20 08:03 Dose: 1 tablet Documented by: Ondansetron HCl (Zofran) 4 mg IV Q8H PRN PRN PRN Reason: NAUSEA/VOMITING Pantoprazole Sodium (Protonix) 20 mg PO DAILY [facility] Last Admin: 06/21/20 08:04 Dose: 20 mg Documented by: Potassium Chloride (K-Dur) 10 meq PO DAILY [facility] Last Admin: 06/21/20 08:03 Dose: 10 meq Documented by: Sodium Chloride () 10 - 40 ml IV UD PRN PRN Reason: SALINE FLUSH Last Admin: 06/21/20 08:04 Dose: 10 ml Documented by: Discharge Diet: 1800 Calorie Control Diet Discharge Activity: Return to Normal Activity Home Medications: Medications to take at Discharge Infliximab-DYYB [Inflectra] 100 mg IV .COMPLEX 02/18/17 Esomeprazole Magnesium [Nexium 24Hr] 20 mg PO DAILY 04/15/17 Loratadine [Claritin] 10 mg PO QHS 04/15/17 Glimepiride [Amaryl] 2 mg PO DAILY 01/22/18 Balsalazide Disodium 750 mg PO BID 09/17/18 Multivit-Min/FA/Lycopen/Lutein [Centrum Silver Men Tablet] 1 ea PO DAILY 09/17/18 calcium carbonate-vitamin D3 600 mg (1,500 mg)-800 unit tablet 1 tab PO DAILY 06/02/19 duloxetine 60 mg capsule,delayed release 60 mg PO DAILY 06/02/19 gabapentin 600 mg tablet 600 mg PO BID tab 06/02/19 Ipratropium [place] 15 ml NS PRN PRN 01/11/20 Apixaban [Eliquis] 5 mg PO BID 03/24/20 DiphenhydrAMINE [Benadryl] 25 mg PO BID PRN PRN 03/24/20 Rosuvastatin Calcium 20 mg PO DAILY 03/24/20 potassium chloride 10 mEq tablet,extended release(part/cryst) 10 meq PO DAILY #30 tab 04/18/20 amiodarone 200 mg tablet 100 mg PO DAILY tab 05/25/20 amlodipine 10 mg tablet 10 mg PO DAILY tab 05/25/20 carvedilol 25 mg tablet 25 mg PO BID 05/25/20 furosemide 40 mg tablet 40 mg PO DAILY tab 05/25/20 hydralazine 100 mg tablet 100 mg PO TID tab 05/25/20 isosorbide mononitrate 60 mg tablet,extended release 24 hr 60 mg PO BID #60 tab 05/25/20 lisinopril 40 mg tablet 40 mg PO DAILY 05/25/20 Diltiazem HCl [Diltiazem 24Hr ER (Cd)] 360 mg PO DAILY 06/06/20 Primary Care Physician: Jayme Yang MD [Primary Care Provider] - Please follow up with your Primary Care Physician in: 1 week Patient Instructions: ED ALOC, ED AMPHETAMINE ABUSE Disposition: Home Minutes spent on discharge:: 35 Medical Necessity - Tobacco Use Smoking Status: Former smoker Meaningful Use Info Meaningful Use Diagnoses (Choose all that apply): None applicable Inpatient E&M: 00127 [facility]
[2020-06-21 11:10] LABS: Bedside Glucose 224 mg/dL (70-110)
--- NOTE | 2020-06-22 14:21 | CASEMGMT ---
OCTAVIO BERMUDEZ Discharge F/U Phone Call LACE: 15 Strata: 4 Discharge date: 06/21/2020 Call date: 06/22/2020 Call time: 1422 Admission dx: SARS COVID 19 Infection Pt states today was 'a little rough' with some shortness of breath this morning but states has a call out to Dr. Yang and awaiting a call back. Pt is speaking in full sentences in no distress at this time. Pt states has been on the home oxygen at 2liters as ordered and has been checking pulse ox as well. Pt states no questions regarding discharge instructions/medications at this time. Pt states will make f/u appt with Trey's office when they call back. Pt states no suggestions for [facility] at this time and states 'Everything was good.' Pt voices no further questions/concerns/needs at this time and thanks this RN AIDAN for call at this time. [place] OCTAVIO BERMUDEZ
== END 2020-06-21 14:45 | disposition home or self-care (01) | DRG 871 ==
LOC: ED 02:53 → ICU 03:28
PROVIDERS: Internal Medicine Infectious Disease; Admitting Provider Hospitalist; Emergency Provider Student in an Organized Health Care Education/Training Program; PCP Family Medicine; Visit Provider Internal Medicine
DX: A41.89 Other specified sepsis (principal); U07.1 COVID-19; J96.01 Acute respiratory failure with hypoxia; J12.89 Other viral pneumonia; J15.9 Unspecified bacterial pneumonia; I13.0 Hypertensive heart and chronic kidney disease with heart failure and stage 1 through stage 4 chronic kidney disease, or unspecified chronic kidney disease; I50.32 Chronic diastolic (congestive) heart failure; N30.00 Acute cystitis without hematuria; J45.901 Unspecified asthma with (acute) exacerbation; R65.20 Severe sepsis without septic shock; I16.0 Hypertensive urgency; E11.65 Type 2 diabetes mellitus with hyperglycemia; T38.0X5A Adverse effect of glucocorticoids and synthetic analogues, initial encounter; N18.3 Chronic kidney disease, stage 3 (moderate); E11.22 Type 2 diabetes mellitus with diabetic chronic kidney disease; E11.649 Type 2 diabetes mellitus with hypoglycemia without coma; E11.40 Type 2 diabetes mellitus with diabetic neuropathy, unspecified; F03.90 Unspecified dementia, unspecified severity, without behavioral disturbance, psychotic disturbance, mood disturbance, and anxiety; I27.20 Pulmonary hypertension, unspecified; I48.0 Paroxysmal atrial fibrillation; G47.33 Obstructive sleep apnea (adult) (pediatric); E78.5 Hyperlipidemia, unspecified; K52.9 Noninfective gastroenteritis and colitis, unspecified; K57.30 Diverticulosis of large intestine without perforation or abscess without bleeding; E87.6 Hypokalemia; M05.30 Rheumatoid heart disease with rheumatoid arthritis of unspecified site; Y95 Nosocomial condition; Z79.01 Long term (current) use of anticoagulants; Z79.84 Long term (current) use of oral hypoglycemic drugs; Z79.899 Other long term (current) drug therapy; Z87.891 Personal history of nicotine dependence
CPT/HCPCS: 36600; 71045; 80048; 80053; 81001; 82803; 82962; 83036; 83605; 83615; 83880; 84145; 84484; 85014; 85018; 85025; 85027; 85610; 86140; 86644; 86850; 86900; 86901; 87040; 87070; 87086; 87205; 87449; 87641; 93005; 94002; 94003; 94640; 94660; 97110; 97116; 97162; 97166; 97530; 97535; 99285; J7030; J7050; A4216; J1940

== ENCOUNTER 2020-06-23 00:54 | Observation (INO) | payer MEDICARE, OTHER, SELFPAY ==
[2020-06-14 04:21] VITALS: BMI 30.2
[2020-06-23] VITALS (24 sets, daily range): BP systolic 130–175; BP diastolic 53–87; PULSE 58–80; RESP 18–26; TEMP 36.5–37.2; O2SAT 87–99; BMI 32.3
--- NOTE | 2020-06-23 01:04 | ED.VIS.GEN ---
History of Present Illness Chief Complaint: Shortness of Breath Informant: Patient Narrative: 74-year-old male released from the hospital yesterday with history of COVID?19 infection and pneumonia presenting today with shortness of breath. He states he was sent home with oxygen and was supposed to wear 2 L however his oxygen is not working. He states he has been at 75% on his pulse ox most of the day. He states he tried to call his primary care provider in the hospital but he was unable to get this addressed. He also states that his cough is worse. He states he had a fever prior to arrival that was greater than 100. He states that he did not take anything for fever prior to coming in he is afebrile here. Its that he has a painful cough. Prior similar symptoms: Yes Recent Illness/Hospitalization: Yes - Past Medical History (1) COVID-19 virus infection Status: Chronic (2) Sepsis Status: Chronic (3) Severe acute respiratory syndrome coronavirus 2 (SARS-CoV-2) infection ruled out Status: Chronic (4) A-fib Status: Chronic (5) Benign essential HTN Status: Chronic Past Medical History - Allergies and Home Meds Allergies/Adverse Reactions: Allergies aspirin Allergy (Severe, Verified 06/23/20 01:07) Mouth swelling donepezil [From Aricept] Adverse Reaction (Severe, Verified 06/23/20 01:07) Swelling morphine Adverse Reaction (Severe, Verified 06/23/20 01:07) UNABLE TO URINATE Prior records reviewed: Yes Past Medical History: - - Reviewed and problem list Surgical History: noncontributory, - - Fusion of the cervical spine, lumbar spine surgery, bilateral knee replacements, partial colon resection due to diverticulitis Lives: Alone Smoking Status: Former smoker Alcohol: None Drugs: None - Family History Maternal Family History: Family History (Last Reviewed 06/14/20 @ 04:[address] Pedro Ferreira MD) Mother Heart disease Diabetes Father Heart disease Lung disease Brother Heart disease Lung disease Cancer Sister Diabetes Cancer Family History: Reports: Heart Disease Paternal Family History: Family History (Last Reviewed 06/14/20 @ 04:[address] Pedro Ferreira MD) Mother Heart disease Diabetes Father Heart disease Lung disease Brother Heart disease Lung disease Cancer Sister Diabetes Cancer Family History: Reports: COPD, Heart Disease Review of Systems General: Reports: Fever, Malaise Eyes: Denies: Visual changes - bilaterally, Diplopia ENT: Denies: Rhinorrhea, Sore throat Cardiovascular: Reports: Chest pain - Painful cough Respiratory: Reports: Dyspnea, Cough Gastrointestinal: Denies: Abdominal pain, Nausea Genitourinary: Denies: Dysuria, Hematuria Musculoskeletal: Denies: Myalgias, Arthralgias Skin: Denies: Rash, Abscess Neurological: Reports: Headache. Denies: Parasthesia Physical Exam Vital Signs/Narrative: Vital Signs Temp Pulse Resp BP Pulse Ox 06/23/20 01:00 98.9 F 80 26 H 156/78 H 94 Inital Vital Signs reviewed: Yes General: Unkempt, No Acute Distress Head: Normocephalic, Atraumatic Eyes: Perrl, EOMI. Negative for: Scleral icterus ENT: Negative for: No rhinorrhea, Nasal congestion Cardiovascular: Regular rate, Regular rhythm Respiratory: Rhonchi, Decreased Air Movement Abdomen: Soft, Nontender Extremities: Nontender, No edema Skin: Negative for: No rash, Cyanosis Neurological: Alert, Oriented x3 Psychological: Normal affect, Normal Mood Diagnostic/Tx/Re-eval Laboratory Data 06/23/20 06/23/20 01:52 01:52 WBC 10.2 RBC 3.10 L Hgb 8.6 L Hct 27.1 L MCV 87.4 MCH 27.7 MCHC 31.7 L RDW Std Deviation 56.2 H RDW Coeff of Azeem 17.6 H Plt Count 266 MPV 10.1 Immature Gran % (Auto) 1.000 H Neut % (Auto) 77.6 H Lymph % (Auto) 15.4 L [place] % (Auto) 5.5 Eos % (Auto) 0.5 Baso % (Auto) 0.0 Absolute Neuts (auto) 7.9 H Absolute Lymphs (auto) 1.57 Nucleated RBC % 0.2 Sodium 142 Potassium 3.8 Chloride 107 Carbon Dioxide 30.0 Anion Gap 5 BUN 31 H Creatinine 1.40 H Estim Creat Clear Calc 42.62 Est GFR (MDRD) Af Amer 63 Est GFR (MDRD) Non-Af 52 L BUN/Creatinine Ratio 22.1 H Glucose 125 H Calcium 8.1 L Total Bilirubin 0.50 AST 22 ALT 51 Alkaline Phosphatase 72 Troponin I 0.024 Total Protein 6.3 L Albumin 2.2 L Globulin 4.1 Albumin/Globulin Ratio 0.5 L - Rhythm Strip Rhythm Strip: Sinus Rhythm Rate: 76 - EKG Initial EKG Interpretation: Sinus Rhythm, No Acute Injury Pattern - Medical Decision Making Patient presents with shortness of breath and states that his home oxygen is not working. He states that because of this he is too weak to stand. He also states that he does not feel good. Other than coarse breath sounds his physical exam is fairly unremarkable. Lab work shows some dehydration which is mild. His hemoglobin is stable. Since it is unclear whether the patient's oxygen is working or not he will be admitted to the hospital for observation until we can determine how much oxygen he is requiring and whether his oxygen is working at home. Impression: 1. Acute on chronic hypoxia ED Disposition - Plan for ED Patient: Disposition: Acute Care Hospital [facility]
--- NOTE | 2020-06-23 01:40 | EKG12_ITS ---
Test Reason : DYSRHYTHMIA Blood Pressure : / mmHG Vent. Rate : 087 BPM Atrial Rate : 087 BPM P-R Int : 164 ms QRS Dur : 104 ms QT Int : 390 ms P-R-T Axes : 021 -31 046 degrees QTc Int : 469 ms Normal sinus rhythm with sinus arrhythmia Left axis deviation Septal infarct (cited on or before 06-JUN-2020) Abnormal ECG When compared with ECG of 06-JUN-2020 21:27, Criteria for Inferior infarct are no longer Present Confirmed by JAKE WILLIS MD ([id number]), features editor CRISTI ROOT ([id number]) on 06/28/2020 12:52:18 PM Referred By: FRENANDO Confirmed By:JAKE WILLIS MD
--- NOTE | 2020-06-23 01:40 | RAD_ITS ---
STUDY: X-RAY CHEST REASON FOR EXAM: Male, 74 years old. Patient covid positive was tested 2 weeks ago. Patient just discharged from [facility] yesterday. Patient states has not been able to get out of his chair since then. having shortness of breath and cough TECHNIQUE: Single AP portable view of the chest. COMPARISON: June 06 and 2019 FINDINGS: There are superimposed monitor leads. There is bilateral patchy airspace opacities possibly mildly improved in the left base, unchanged in the left perihilar parenchyma, stable in the right base, possibly slightly worsened in the right perihilar parenchyma compared to 06/14/2020. There is no demonstrated pleural abnormality. There is mild cardiac enlargement. Normal mediastinum and corina. Normal visualized pulmonary arteries. There is atherosclerotic calcification of the aortic arch with tortuosity. There are diffuse degenerative changes of the visualized thoracic spine. There is degenerative osteoarthritis of the bilateral shoulders. There is no demonstrated abnormality of the visualized soft tissue structures of the upper abdomen. RAD/Chest 1 View (Portable) IMPRESSION: Continued airspace disease bilaterally with cardiomegaly. Electronically Signed: Li Garcia MD at 5:32 EDT , Service support ,
[2020-06-23 01:58] LABS: Absolute Lymphocyte Count 1.57 X10^3/uL (0.83-4.51); Absolute Neutrophil Count 7.9 X10^3/uL (2.0-7.7); Eosinophil# 0.05 X10^3/uL; Eosinophils% 0.5 % (0-5); Hematocrit 27.1 % (40-54); Hemoglobin 8.6 g/dL (13.0-16.5); Lymphocyte # 1.57 X10^3/ul (4.0); Lymphocyte % 15.4 % (19-41); Mean Corp Hgb Conc 31.7 g/dL (32-36); Mean Corpuscular Hgb 27.7 pg (27.0-32.0); Mean Corpuscular Volume 87.4 fL (80-94); Mean Platelet Vol. 10.1 fl (6.2-12.0); Monocyte# 0.56 X10^3/uL; Monocyte% 5.5 % (0-10); NRBC Flagged by Analyzer 0.2 % (0-5); Neutrophil # 7.94 X10^3/uL (2.7-7.7); Neutrophil % 77.6 % (47-70); Platelet Count 266 K/mm3 (150-450); RBC Distribution Width CV 17.6 % (11.6-14.6); RBC Distribution Width SD 56.2 fl (35.1-43.9); White Blood Count 10.2 K/mm3 (4.4-11.0)
[2020-06-23 02:55] LABS: ALB/GLOB Ratio 0.5 RATIO (0.9-2.4); AST(SGOT) 22 U/L (15-37); Alanine Aminotransfer ALT/SGPT 51 U/L (16-61); Albumin, Serum 2.2 g/dL (3.2-5.0); Alkaline Phosphatase 72 U/L (45-117); Anion Gap 5 (5-15); BUN 31 mg/dL (7-18); BUN/Creat Ratio 22.1 RATIO (10-20); Calcium,Total 8.1 mg/dL (8.5-10.1); Chloride 107 mmol/L (98-107); EST Glomerular Filtration Rate 52 mL/min (>60); Est Glom Filt Rate - Afr Amer 63 mL/min (>60); Estimated Creatinine Clearance 42.62 ml/min; Globulin 4.1 g/dL (2.2-4.2); Glucose 125 mg/dL (74-106); Potassium 3.8 mmol/L (3.5-5.1); Protein, Total 6.3 g/dL (6.4-8.2); Sodium Level 142 mmol/L (136-145)
--- NOTE | 2020-06-23 03:57 | HP.PCM_ITS ---
History of Present Illness Date of Admission: 06/23/20 Chief Complaint: Shortness of breath The patient is a 74 year old M H as below who was just discharged on 06/21/2020 after he had an 8-day stay for COVID-19 pneumonia. He completed convalescent plasma, Decadron, REM does severe, as well as a course of Zosyn for possible bacterial pneumonia. He was discharged home on oxygen but he thinks that his oxygen was not working because he was testing his oxygen level at home with a finger pulse ox and it was 84% on the 2 L that he was supposed to be wearing. I asked him if he had turned up the oxygen he said no because the oxygen company said that they could not turn it up without a doctor's orders. He says that because of his low oxygen he was getting lightheaded and dizzy and was weak at home and unable to ambulate. In the ER lab work was unremarkable, his creatinine was better than it was on discharge at 1.4. He had to be turned up to 4 L nasal cannula to maintain oxygen saturations of 94%. Chest x-ray does not look remarkably different than it did on his previous admission. Past Medical History Past Medical History (Chronic Problems): Chronic Problems (Last Reviewed 06/14/20 @ 04:[address] Pedro Ferreira MD) Kidney stones (Chronic) Dementia (Chronic) Ureterolithiasis (Chronic) A-fib (Chronic) Asthma (Chronic) Sepsis (Chronic) Severe acute respiratory syndrome coronavirus 2 (SARS-CoV-2) infection ruled out (Chronic) COVID-19 virus infection (Chronic) Asymptomatic hypertensive urgency (Chronic) Essential hypertension (Chronic) Pulmonary hypertension (Chronic) RVSP 40 mmHg SUPA (obstructive sleep apnea) (Chronic) CPAP 15 cm of water Diverticula of colon (Chronic) Colitis (Chronic) Atrial fibrillation with RVR (Chronic) DM2 (diabetes mellitus, type 2) (Chronic) Hyperlipidemia (Chronic) Inflammatory bowel disease (Chronic) Benign essential HTN (Chronic) Rheumatoid aortitis (Chronic) Medical History: Medical History (Last Reviewed 06/14/20 @ 04:[address] Pedro Ferreira MD) Essential hypertension (Chronic) I10 Diverticula of colon (Chronic) K57.30 Colitis (Chronic) K52.9 Bronchitis (Inactive) J40 Atrial fibrillation with RVR (Chronic) I48.91 Rhinovirus (Inactive) B34.8 Severe sepsis (Inactive) A41.9, R65.20 Acute respiratory insufficiency (Inactive) R06.89 DM2 (diabetes mellitus, type 2) (Chronic) E11.9 Hyperlipidemia (Chronic) E78.5 Inflammatory bowel disease (Chronic) K52.9 Benign essential HTN (Chronic) I10 Rheumatoid aortitis (Chronic) I01.1 Hypertensive urgency (Resolved) I16.0 Allergies aspirin Allergy (Severe, Verified 06/23/20 01:07) Mouth swelling donepezil [From Aricept] Adverse Reaction (Severe, Verified 06/23/20 01:07) Swelling morphine Adverse Reaction (Severe, Verified 06/23/20 01:07) UNABLE TO URINATE Home Medications: Ambulatory Orders Medication Instructions Recorded Infliximab-DYYB [Inflectra] 100 mg IV .COMPLEX 02/18/17 Esomeprazole Magnesium [Nexium 20 mg PO DAILY 04/15/17 24Hr] Loratadine [Claritin] 10 mg PO QHS 04/15/17 Glimepiride [Amaryl] 2 mg PO DAILY 01/22/18 Balsalazide Disodium 750 mg PO BID 09/17/18 Multivit-Min/FA/Lycopen/Lutein 1 ea PO DAILY 09/17/18 [Centrum Silver Men Tablet] calcium carbonate-vitamin D3 600 1 tab PO DAILY 06/02/19 mg (1,500 mg)-800 unit tablet duloxetine 60 mg capsule,delayed 60 mg PO DAILY 06/02/19 release gabapentin 600 mg tablet 600 mg PO BID tab 06/02/19 Ipratropium [place] 15 ml NS PRN PRN 01/11/20 Apixaban [Eliquis] 5 mg PO BID 03/24/20 DiphenhydrAMINE [Benadryl] 25 mg PO BID PRN PRN 03/24/20 Rosuvastatin Calcium 20 mg PO DAILY 03/24/20 potassium chloride 10 mEq 10 meq PO DAILY #30 tab 04/18/20 tablet,extended release(part/cryst) amiodarone 200 mg tablet 100 mg PO DAILY tab 05/25/20 amlodipine 10 mg tablet 10 mg PO DAILY tab 05/25/20 carvedilol 25 mg tablet 25 mg PO BID 05/25/20 furosemide 40 mg tablet 40 mg PO DAILY tab 05/25/20 hydralazine 100 mg tablet 100 mg PO TID tab 05/25/20 isosorbide mononitrate 60 mg 60 mg PO BID #60 tab 05/25/20 tablet,extended release 24 hr lisinopril 40 mg tablet 40 mg PO DAILY 05/25/20 Diltiazem HCl [Diltiazem 24Hr ER 360 mg PO DAILY 06/06/20 (Cd)] Surgical History: Surgical History (Last Reviewed 06/14/20 @ 04:[address] Pedro Ferreira MD) History of bilateral knee replacement (Inactive) Z96.653 History of back surgery (Inactive) Z98.890 Cervical vertebral fusion (Inactive) M43.22 History of removal of cyst (Inactive) Z98.890 Surgical History: noncontributory, - - Fusion of the cervical spine, lumbar spine surgery, bilateral knee replacements, partial colon resection due to diverticulitis Psychiatric History: No pertinent psych hx Lives: Alone Smoking Status: Former smoker Alcohol: None Drugs: None - *Family History Maternal Family History: Family History (Last Reviewed 06/14/20 @ 04:[address] Pedro Ferreira MD) Mother Heart disease Diabetes Father Heart disease Lung disease Brother Heart disease Lung disease Cancer Sister Diabetes Cancer History Items: Heart Disease Paternal Family History: Family History (Last Reviewed 06/14/20 @ 04:[address] Pedro Ferreira MD) Mother Heart disease Diabetes Father Heart disease Lung disease Brother Heart disease Lung disease Cancer Sister Diabetes Cancer History Items: COPD, Heart Disease Review of Systems Constitutional: Denies: Chills, Fever, Weight Change HEENT: Denies: Head Aches, Sinus Congestion, Sinus Drainage Cardiovascular: Denies: Chest Pain, Palpitations Respiratory: Reports: Cough, Shortness of Breath. Denies: Shortness of breath at rest, Sputum production Gastrointestinal: Denies: Abdominal Pain, Nausea, Vomiting Genitourinary: Denies: Dysuria Musculoskeletal: Denies: Joint Pain, Joint Tenderness Skin: Denies: Rash, Wounds Neurological: Denies: Numbness, Tingling, Focal weakness Psychiatric: Denies: Anxiety, Depression Hematologic/ Lymphatic: Denies: Easy Bruising, Easy Bleeding VTE Information - Inpt Only VTE Present on Admission: No - Physical Exam Vitals/I&O's: Vital Signs Temp Pulse Resp BP Pulse Ox 98.7 F 72 18 154/78 H 93 06/23/20 03:52 06/23/20 03:52 06/23/20 03:52 06/23/20 03:52 06/23/20 03:52 Oxygen Flow Rate (L/min) 4 Oxygen Delivery Method Nasal Cannula Weight: 206 lb 9.17 oz Body Mass Index (BMI) 32.3 Finger Stick Blood Glucose 104 General: Alert, Oriented x3, Cooperative, No apparent distress HEENT: Atraumatic, PERRLA, EOMI, Normocephalic Oral: Moist Mucosa Neck: Supple, No JVD Lungs: Normal air movement, Diminished, Rhonchi, Short of Breath, Wheezes Cardiovascular: Regular rate, Regular Rhythm, Normal S1, Normal S2, No murmurs Abdomen: Soft, Non Tender, Non-Distended, No Hepato-splenomegaly Extremities: Capillary Refill Less than 3 Seconds, Edema - 1+ pitting edema b ilaterally Skin: No rashes, No breakdown Neurological: Neuro grossly intact, Sensory exam intact to light touch and pain Psych/Mental Status: Anxious Laboratory Results 06/23/20 01:52: WBC 10.2, RBC 3.10 L, Hgb 8.6 L, Hct 27.1 L, MCV 87.4, MCH 27.7, MCHC 31.7 L, RDW Std Deviation 56.2 H, RDW Coeff of Azeem 17.6 H, Plt Count 266, MPV 10.1, Immature Gran % (Auto) 1.000 H, Neut % (Auto) 77.6 H, Lymph % (Auto) 15.4 L, Johnson % (Auto) 5.5, Eos % (Auto) 0.5, Baso % (Auto) 0.0, Absolute Neuts (auto) 7.9 H, Absolute Lymphs (auto) 1.57, Nucleated RBC % 0.2 06/23/20 01:52: Sodium 142, Potassium 3.8, Chloride 107, Carbon Dioxide 30.0, Anion Gap 5, BUN 31 H, Creatinine 1.40 H, Estim Creat Clear Calc 42.62, Est GFR (MDRD) Af Amer 63, Est GFR (MDRD) Non-Af 52 L, BUN/Creatinine Ratio 22.1 H, Glucose 125 H, Calcium 8.1 L, Total Bilirubin 0.50, AST 22, ALT 51, Alkaline Phosphatase 72, Troponin I 0.024, Total Protein 6.3 L, Albumin 2.2 L, Globulin 4.1, Albumin/Globulin Ratio 0.5 L Assessment/Plan All Active Problems (Last Reviewed 06/14/20 @ 04:[address] Pedro Ferreira MD) Chest tightness (Resolved) Hypertensive urgency (Resolved) Left wrist pain (Resolved) Syncopal episodes (Resolved) Ureteral calculus, right (Resolved) 1. Shortness of breath, history of recent COVID 19 infection with pneumonia bilaterally -We will continue with CPAP while he sleeps, and obtain an ambulatory pulse ox to see if we need to readjust the amount of home oxygen -PT/OT for evaluation -Case management for possible placement -Had PFTs in September 2018 which were normal 2. A. fib with RVR/HTN/HLD/chronic diastolic CHF mild pulmonary hypertension -We will continue with his home Eliquis -Blood pressures are currently stable -Can resume his Coreg, Cardizem, Lasix, hydralazine, Imdur, lisinopril, Norvasc, amiodarone -Continue with Crestor 3. DM 2 with peripheral neuropathy -We will hold his home oral medications and continue with a sliding scale insulin -Accu-Cheks AC at bedtime -Continue with gabapentin 4. Inflammatory bowel disease/rheumatoid arthritis -Stable -Can continue with his balsalazide -He is on infliximab as an outpatient but states that he has not taken it for the last 10 weeks 5. Anxiety/depression -Stable -Continue with Cymbalta 6. GERD -Stable -Continue with PPI DVT: Eliquis OBSV E&M: [id number] Initial observation care L3
--- NOTE | 2020-06-23 07:15 | PN_ITS ---
Subjective: Patient with improved oxygenation with increased to 4 L nasal cannula. He had been discharged home on 2 L nasal cannula but was desaturating at home and unable to increase his oxygen at that time. He notes ongoing cough which keeps him up and is often moist and blood-tinged with persistent dyspnea, worse with any exertion. Patient denies any recurrent fevers or other COVID type symptoms. Patient denies fevers, chills, nausea, emesis, abdominal pain, chest pain. Objective: Physical Examination: General: awake, alert, oriented x 3 and cooperative, seated upright in the ICU COVID bedside chair, no acute distress, moist coughing during evaluation. Skin: normal color, turgor, no icterus, cyanosis. HEENT: AT/NC, EOMI, PERRLA, MMM, evidence thrush. Lungs: Moist coughing during evaluation, rhonchorous, bilaterally, diminished bases, decreased effort, no obvious wheezing or rales. Heart: Regular rate and rhythm; no gallop, rub audible. Abdomen: soft, obese, NTTP, ND, normal BS. Extremities: no cyanosis, clubbing, or edema. Neurological: patient awake, alert, oriented x 3; cognitive function intact; pupils equally reactive to light and accomodation; cranial nerves II-XII grossly normal, moving all 4 extremities, no focal deficits, strength moderately to severely global decreased. Psychiatric: affect appears fatigued, notes less irritable than evening prior, no acute evidence of depressive or anxiety feelings. Vitals/I&O's: Vital Signs Temp Pulse Resp BP Pulse Ox 98.8 F 80 20 H 155/68 H 94 06/23/20 06:00 06/23/20 06:00 06/23/20 06:00 06/23/20 06:00 06/23/20 06:00 Oxygen Flow Rate (L/min) 4 Oxygen Delivery Method Nasal Cannula Weight: 205 lb 14.588 oz Body Mass Index (BMI) 32.3 Finger Stick Blood Glucose 104 Intake and Output for Last 24 Hours 06/21/20 06/22/20 06/23/20 23:59 23:59 23:59 Intake Total 200 / 200 Output Total 900 / 900 Balance -700 / -700 Laboratory Results 06/23/20 01:52: WBC 10.2, RBC 3.10 L, Hgb 8.6 L, Hct 27.1 L, MCV 87.4, MCH 27.7, MCHC 31.7 L, RDW Std Deviation 56.2 H, RDW Coeff of Azeem 17.6 H, Plt Count 266, MPV 10.1, Immature Gran % (Auto) 1.000 H, Neut % (Auto) 77.6 H, Lymph % (Auto) 15.4 L, [place] % (Auto) 5.5, Eos % (Auto) 0.5, Baso % (Auto) 0.0, Absolute Neuts (auto) 7.9 H, Absolute Lymphs (auto) 1.57, Nucleated RBC % 0.2 06/23/20 01:52: Sodium 142, Potassium 3.8, Chloride 107, Carbon Dioxide 30.0, Anion Gap 5, BUN 31 H, Creatinine 1.40 H, Estim Creat Clear Calc 42.62, Est GFR (MDRD) Af Amer 63, Est GFR (MDRD) Non-Af 52 L, BUN/Creatinine Ratio 22.1 H, Glucose 125 H, Calcium 8.1 L, Total Bilirubin 0.50, AST 22, ALT 51, Alkaline Phosphatase 72, Troponin I 0.024, Total Protein 6.3 L, Albumin 2.2 L, Globulin 4.1, Albumin/Globulin Ratio 0.5 L Current Medications Amiodarone HCl (Cordarone) 100 mg PO DAILY JOHANNA Amlodipine Besylate (Norvasc) 10 mg PO DAILY@1700 JOHANNA Apixaban (Eliquis) 5 mg PO BID JOHANNA Atorvastatin Calcium (Lipitor) 40 mg PO QHS JOHANNA Carvedilol (Coreg) 25 mg PO BIDCM [facility] Dextrose (D50w Syringe) 0 gm IV X1 PRN; Protocol PRN Reason: Hypoglycemia Diltiazem HCl (Cardizem Cd) 360 mg PO DAILY JOHANNA Duloxetine HCl (Cymbalta) 60 mg PO DAILY JOHANNA Furosemide (Lasix) 40 mg PO DAILY JOHANNA Gabapentin (Neurontin) 600 mg PO BID JOHANNA Glucagon () 1 mg IM .X1 PRN PRN Reason: Hypoglycemia Hydralazine HCl (Apresoline) 100 mg PO TID@0800,1700,2200 JOHANNA Sodium Chloride () 250 mls @ 15 mls/hr IV .[id number] PRN PRN Reason: Saline Flush Sodium Chloride () 250 mls @ 15 mls/hr IV .[id number] PRN PRN Reason: Additional IVPB Infusion Insulin Human Lispro (Humalog Kwikpen (Bkc)) 0 unit SC ACHS JOHANNA; Protocol Isosorbide Mononitrate (Imdur) 60 mg PO BID JOHANNA Lisinopril (Zestril) 40 mg PO QHS JOHANNA Loratadine (Claritin) 10 mg PO QHS JOHANNA Melatonin (Melatonin) 3 mg PO QHS PRN PRN PRN Reason: INSOMNIA Pantoprazole Sodium (Protonix) 20 mg PO DAILY JOHANNA Potassium Chloride (K-Dur) 10 meq PO DAILY JOHANNA Sodium Chloride () 10 - 40 ml IV UD PRN PRN Reason: SALINE FLUSH STROKE Vital Signs/Narrative: Vital Signs Temp Pulse Resp BP Pulse Ox 06/23/20 06:00 98.8 F 80 20 H 155/68 H 94 06/23/20 05:02 74 06/23/20 05:00 98.9 F 74 20 H 175/78 H 94 06/23/20 03:52 98.7 F 72 18 154/78 H 93 Medical Necessity - Tobacco Use Smoking Status: Former smoker Assessment/Plan All Active Problems (Last Reviewed 06/14/20 @ 04:[address] Pedro Ferreira MD) Chest tightness (Resolved) Hypertensive urgency (Resolved) Left wrist pain (Resolved) Syncopal episodes (Resolved) Ureteral calculus, right (Resolved) The patient is a 74 y/o M w/ PMHx: PAF, HTN, HLD, Diabetes mellitus type II w/ peripheral neuropathy, Inflammatory bowel disease, CKD stage III, Rheumatoid arthritis, Anxiety and Depression who presents to the [facility] ED on 06/23/20 with history of recent discharge on 06/21/2020 following 8-day inpatient stay for COVID-19 pneumonia and possible overlapping bacterial pneumonia now returning with worsening dyspnea, noted home oxygen saturation 84% despite his usage of his 2 L nasal cannula with inability to increase his oxygen further with lightheadedness and dizziness prompting ED evaluation. 1. Dyspnea, Cough with Hypoxia, Recurrent w/ recent COVID-19 with Bilateral Pneumonia with oral thrush demonstrated: Patient admitted to medical surgical bed area secondary to ongoing hypoxia noted in the ED, previously discharged on 2 L nasal cannula but requiring 4 L nasal cannula. Admission work-up included CBC with WBC 10.2, hemoglobin 8.6, platelet 266 with left shift, CMP with BUN/creatinine 31/1.40, glucose 125 otherwise not marked appearing, troponin 0.024, chest x-ray with continued airspace disease bilaterally with cardiomegaly. Given recurrent presentation requested infectious disease evaluation and patient will be initiated on oral fluconazole secondary to thrush, request sputum culture, obtain respiratory viral panel, defer further antibiotics at this time. Patient recently given during his initial COVID admission Decadron, remdesivir severe as well as plasma. We will continue with PT and OT assessments although per discussion with case management patient has done well and has declined placement previously. 2. PAF: We will continue patient home Eliquis in addition to Coreg, Cardizem and amiodarone. 3. Hypertension: Continue home regimen including Coreg, Cardizem, Lasix, hydralazine, Imdur, lisinopril, Norvasc with hold parameters as needed, PRN hydralazine. 4. Hyperlipidemia: Continue home statin regimen. 5. Chronic Kidney Disease Stage III: Admission BUN/Cr 31/1.40, baseline renal function 0.9-1.3, was increased during recent admission secondary to his acute presentation but improving, repeat BMP in AM. 6. Normocytic anemia: Admission hemoglobin 8.6, baseline 8-10, appears stable, continue to trend as needed. 7. Diabetes mellitus type II: Hold oral home regimen, continue home insulin regimen, ADA diet, accu checks w/ ISS, continue patient home gabapentin regimen. 8. Anxiety and depression: We will continue patient home Cymbalta regimen. 9. Inflammatory bowel disease/rheumatoid arthritis: We will continue patient's home regimen including balsalazide and continued outpatient infliximab which was last dosed approximately 10 weeks prior. 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 10. GERD: We will continue patient on PPI. 11. DVT prophylaxis: SCDs, continue home Eliquis regimen. 12. CODE STATUS: Full, patient has HCPOA and LW in place. Procedures: Other Procedure - See Report - Not billable, admitted after midnight, admission code: [id number]
[2020-06-23] MEDS: Carvedilol 25 MG Tablet PO ×2 (08:07→16:59)
[2020-06-23] MEDS: hydrALAZINE 50 MG Tablet 100 MG PO ×3 (08:08→21:04)
[2020-06-23 08:21] LABS: Bedside Glucose 65 mg/dL (70-110)
[2020-06-23 08:40] LABS: Bedside Glucose 71 mg/dL (70-110)
[2020-06-23] MEDS: guaiFENesin 10 ML UDC (200MG/10ML) PO ×2 (10:03→21:02)
[2020-06-23] MEDS: Phenol/Sodium Phenolate 180ML 5 SPRAY MM ×3 (10:03→21:02)
[2020-06-23] MEDS: Isosorbide Mononitrate 60 MG Tablet PO ×2 (10:04→21:04)
[2020-06-23] MEDS: Pantoprazole Sodium 20 MG Tablet PO (10:04)
[2020-06-23] MEDS: BALSALAZIDE DISODIUM 750 MG CAPSULE PO ×2 (10:04→21:04)
[2020-06-23] MEDS: dilTIAZem CD 180 MG Capsule 360 MG PO (10:04)
[2020-06-23] MEDS: Calcium Carb/Vitamin D 1 TABLET Tablet PO (10:04)
[2020-06-23] MEDS: Amiodarone 200 MG Tablet 100 MG PO (10:04)
[2020-06-23] MEDS: Acetaminophen 325 MG Tablet 650 MG PO (10:04)
[2020-06-23] MEDS: APIXABAN 5 MG TABLET PO ×2 (10:04→21:04)
[2020-06-23] MEDS: DULoxetine Hcl 60 MG Capsule PO (10:04)
[2020-06-23] MEDS: Gabapentin 600 MG Tablet PO ×2 (10:04→21:04)
[2020-06-23] MEDS: Furosemide 40 MG Tablet PO (10:04)
--- NOTE | 2020-06-23 10:27 | CON.PCM_ITS ---
Problem List (1) COVID-19 virus infection Status: Chronic Reason for Consult: covid Consulted by: Dr. Murphy History of Present Illness: The patient is a 74 year old M with h/o rheumatoid, recent admission for covid requiring remdesivir, empiric course of zosyn, decadron, and convalescent plasma. Never needed intubation, able to be discharged on home O2. While at home, sats down to 84%, did not think he was able to increase his level. No fever, but joint aches and sore throat. Coughing up some bloody sputum. No fever. Got more dyspneic, came to ED, frustrated that he had to stay down there for 3 hours. Full ROS performed and neg except as noted above. - Medical History Past Medical History (Chronic Problems): Chronic Problems (Last Reviewed 06/14/20 @ 04:[address] Pedro Ferreira MD) Kidney stones (Chronic) Dementia (Chronic) Ureterolithiasis (Chronic) A-fib (Chronic) Asthma (Chronic) Sepsis (Chronic) Severe acute respiratory syndrome coronavirus 2 (SARS-CoV-2) infection ruled out (Chronic) COVID-19 virus infection (Chronic) Asymptomatic hypertensive urgency (Chronic) Essential hypertension (Chronic) Pulmonary hypertension (Chronic) RVSP 40 mmHg SUPA (obstructive sleep apnea) (Chronic) CPAP 15 cm of water Diverticula of colon (Chronic) Colitis (Chronic) Atrial fibrillation with RVR (Chronic) DM2 (diabetes mellitus, type 2) (Chronic) Hyperlipidemia (Chronic) Inflammatory bowel disease (Chronic) Benign essential HTN (Chronic) Rheumatoid aortitis (Chronic) Allergies/Adverse Reactions: Allergies aspirin Allergy (Severe, Verified 06/23/20 01:07) Mouth swelling donepezil [From Aricept] Adverse Reaction (Severe, Verified 06/23/20 01:07) Swelling morphine Adverse Reaction (Severe, Verified 06/23/20 01:07) UNABLE TO URINATE Home Medications: Ambulatory Orders Medication Instructions Recorded Infliximab-DYYB [Inflectra] 100 mg IV .COMPLEX 02/18/17 Esomeprazole Magnesium [Nexium 20 mg PO DAILY 04/15/17 24Hr] Loratadine [Claritin] 10 mg PO QHS 04/15/17 Glimepiride [Amaryl] 2 mg PO DAILY 01/22/18 Balsalazide Disodium 750 mg PO BID 09/17/18 Multivit-Min/FA/Lycopen/Lutein 1 ea PO DAILY 09/17/18 [Centrum Silver Men Tablet] calcium carbonate-vitamin D3 600 1 tab PO DAILY 06/02/19 mg (1,500 mg)-800 unit tablet duloxetine 60 mg capsule,delayed 60 mg PO DAILY 06/02/19 release gabapentin 600 mg tablet 600 mg PO BID tab 06/02/19 Ipratropium [place] 15 ml NS PRN PRN 01/11/20 Apixaban [Eliquis] 5 mg PO BID 03/24/20 DiphenhydrAMINE [Benadryl] 25 mg PO BID PRN PRN 03/24/20 Rosuvastatin Calcium 20 mg PO DAILY 03/24/20 potassium chloride 10 mEq 10 meq PO DAILY #30 tab 04/18/20 tablet,extended release(part/cryst) amiodarone 200 mg tablet 100 mg PO DAILY tab 05/25/20 amlodipine 10 mg tablet 10 mg PO DAILY tab 05/25/20 carvedilol 25 mg tablet 25 mg PO BID 05/25/20 furosemide 40 mg tablet 40 mg PO DAILY tab 05/25/20 hydralazine 100 mg tablet 100 mg PO TID tab 05/25/20 isosorbide mononitrate 60 mg 60 mg PO BID #60 tab 05/25/20 tablet,extended release 24 hr lisinopril 40 mg tablet 40 mg PO DAILY 05/25/20 Diltiazem HCl [Diltiazem 24Hr ER 360 mg PO DAILY 06/06/20 (Cd)] - Social History SMOKING STATUS:: Former smoker Vital Signs Temp Pulse Resp BP Pulse Ox 97.7 F L 77 18 141/64 H 94 06/23/20 08:04 06/23/20 08:08 06/23/20 08:04 06/23/20 10:02 06/23/20 08:04 Oxygen Flow Rate (L/min) 4 Oxygen Delivery Method Nasal Cannula Weight: 93.4 kg Body Mass Index (BMI) 32.3 Finger Stick Blood Glucose 104 Laboratory Tests Past 24 Hrs 06/23/20 06/23/20 06/23/20 01:52 01:52 01:52 WBC 10.2 RBC 3.10 L Hgb 8.6 L Hct 27.1 L MCV 87.4 MCH 27.7 MCHC 31.7 L RDW Std Deviation 56.2 H RDW Coeff of Azeem 17.6 H Plt Count 266 MPV 10.1 Immature Gran % (Auto) 1.000 H Neut % (Auto) 77.6 H Lymph % (Auto) 15.4 L [place] % (Auto) 5.5 Eos % (Auto) 0.5 Baso % (Auto) 0.0 Absolute Neuts (auto) 7.9 H Absolute Lymphs (auto) 1.57 Nucleated RBC % 0.2 Sodium 142 Potassium 3.8 Chloride 107 Carbon Dioxide 30.0 Anion Gap 5 BUN 31 H Creatinine 1.40 H Estim Creat Clear Calc 42.62 Est GFR (MDRD) Af Amer 63 Est GFR (MDRD) Non-Af 52 L BUN/Creatinine Ratio 22.1 H Glucose 125 H Calcium 8.1 L Magnesium 2.0 Total Bilirubin 0.50 AST 22 ALT 51 Alkaline Phosphatase 72 Troponin I 0.024 Total Protein 6.3 L Albumin 2.2 L Globulin 4.1 Albumin/Globulin Ratio 0.5 L - Other Studies Radiology: [] reviewed Other Studies: [] Route of nutrition/ use of supplements: [] Nutritional Intake: [] IV Site: [] Castellano Catheter: [] - Physical Exam General: Alert, Oriented x3, Cooperative HEENT: Atraumatic, PERRLA, EOMI Neck: Supple, No Nodes Lungs: Rhonchi - scattered Cardiovascular: Regular rate, Regular Rhythm Abdomen: Soft, Non Tender, Non-Distended Extremities: No edema Skin: No rashes IV Site: Peripheral, without redness Musculoskeletal: No Tenderness to Palpation of Joints or Extremities Neurological: Cranial nerves II-XII grossly intact - Assessment/Plan Antibiotics: [] Assessment/Plan: [] hypoxia with recent covid - thrush on exam, will give fluconazole which may help his sore throat. Will check sputum cx given hemoptysis that he reports. Agree with holding off on other abx at this point. Given decadron, remdesivir, and plasma on recent admit. Will follow, thank you, d/.w Dr. Murphy
[2020-06-23] MEDS: Fluconazole 100 MG Tablet 200 MG PO (12:51)
[2020-06-23 13:15] LABS: Bedside Glucose 142 mg/dL (70-110)
[2020-06-23] MEDS: amLODIPine 10 MG Tablet PO (16:59)
[2020-06-23 17:10] LABS: Bedside Glucose 139 mg/dL (70-110)
[2020-06-23] MEDS: 0.9% Saline Lock 10 ML Syringe IV (21:02)
[2020-06-23] MEDS: Loratadine 10 MG Tablet PO (21:04)
[2020-06-23] MEDS: Atorvastatin Calcium 40 MG Tablet PO (21:04)
[2020-06-23] MEDS: Lisinopril 40 MG Tablet PO (21:04)
[2020-06-23] MEDS: MELATONIN 3 MG TABLET PO (21:07)
[2020-06-23 23:20] LABS: Bedside Glucose 131 mg/dL (70-110)
[2020-06-24 02:05] VITALS: BP 138/53; PULSE 59; RESP 19; TEMP 36.8; O2SAT 99
[2020-06-24 02:49] VITALS: PULSE 55; RESP 19; O2SAT 98
[2020-06-24 05:51] LABS: Absolute Lymphocyte Count 1.61 X10^3/uL (0.83-4.51); Absolute Neutrophil Count 6.1 X10^3/uL (2.0-7.7); Basophil# 0.01 X10^3/uL; Basophil% 0.1 % (0-1); Eosinophil# 0.16 X10^3/uL; Eosinophils% 1.9 % (0-5); Hematocrit 26.5 % (40-54); Hemoglobin 8.5 g/dL (13.0-16.5); Lymphocyte # 1.61 X10^3/ul (4.0); Lymphocyte % 18.9 % (19-41); Mean Corp Hgb Conc 32.1 g/dL (32-36); Mean Corpuscular Hgb 28.4 pg (27.0-32.0); Mean Corpuscular Volume 88.6 fL (80-94); Mean Platelet Vol. 10.7 fl (6.2-12.0); Monocyte# 0.58 X10^3/uL; Monocyte% 6.8 % (0-10); NRBC Flagged by Analyzer 0 % (0-5); Neutrophil # 6.09 X10^3/uL (2.7-7.7); Neutrophil % 71.5 % (47-70); Platelet Count 233 K/mm3 (150-450); RBC Distribution Width CV 17.7 % (11.6-14.6); RBC Distribution Width SD 57.2 fl (35.1-43.9); Red Blood Count 2.99 M/mm3 (4.6-6.2); White Blood Count 8.5 K/mm3 (4.4-11.0)
[2020-06-24 06:12] LABS: ALB/GLOB Ratio 0.6 RATIO (0.9-2.4); AST(SGOT) 23 U/L (15-37); Alanine Aminotransfer ALT/SGPT 43 U/L (16-61); Albumin, Serum 2.1 g/dL (3.2-5.0); Alkaline Phosphatase 63 U/L (45-117); Anion Gap 2 (5-15); BUN 31 mg/dL (7-18); BUN/Creat Ratio 23.5 RATIO (10-20); Calcium,Total 8.1 mg/dL (8.5-10.1); Chloride 105 mmol/L (98-107); Creatinine, Serum 1.32 mg/dL (0.70-1.30); EST Glomerular Filtration Rate 56 mL/min (>60); Est Glom Filt Rate - Afr Amer 68 mL/min (>60); Estimated Creatinine Clearance 45.21 ml/min; Globulin 3.8 g/dL (2.2-4.2); Glucose 91 mg/dL (74-106); Potassium 4.2 mmol/L (3.5-5.1); Protein, Total 5.9 g/dL (6.4-8.2); Sodium Level 140 mmol/L (136-145)
[2020-06-24 06:51] LABS: Bedside Glucose 87 mg/dL (70-110)
[2020-06-24 10:03] VITALS: O2SAT 88; O2SAT 93
--- NOTE | 2020-06-24 10:03 | CPS ---
Went in to pts room to take him off is Cpap. Placed him on room air. Sats were 88%-90% for 10 min on room air. Placed him on his 2L home oxygen settings. Sats on the 2L were 93%.
[2020-06-24 10:25] VITALS: BP 123/60; PULSE 75; PULSE 80; RESP 18; TEMP 37.5; O2SAT 95
[2020-06-24] MEDS: hydrALAZINE 50 MG Tablet 100 MG PO (10:25)
[2020-06-24] MEDS: Amiodarone 200 MG Tablet 100 MG PO (10:26)
[2020-06-24] MEDS: Gabapentin 600 MG Tablet PO (10:26)
[2020-06-24] MEDS: Carvedilol 25 MG Tablet PO (10:26)
[2020-06-24] MEDS: Calcium Carb/Vitamin D 1 TABLET Tablet PO (10:26)
[2020-06-24] MEDS: DULoxetine Hcl 60 MG Capsule PO (10:26)
[2020-06-24] MEDS: Isosorbide Mononitrate 60 MG Tablet PO (10:26)
[2020-06-24] MEDS: Furosemide 40 MG Tablet PO (10:27)
[2020-06-24] MEDS: Fluconazole 100 MG Tablet PO (10:27)
[2020-06-24] MEDS: BALSALAZIDE DISODIUM 750 MG CAPSULE PO (10:27)
[2020-06-24] MEDS: APIXABAN 5 MG TABLET PO (10:27)
[2020-06-24] MEDS: Pantoprazole Sodium 20 MG Tablet PO (10:27)
[2020-06-24] MEDS: Phenol/Sodium Phenolate 180ML 5 SPRAY MM (10:28)
[2020-06-24] MEDS: dilTIAZem CD 180 MG Capsule 360 MG PO (10:33)
[2020-06-24] MEDS: Acetaminophen 325 MG Tablet 650 MG PO (10:33)
[2020-06-24] MEDS: guaiFENesin 10 ML UDC (200MG/10ML) PO (10:33)
--- NOTE | 2020-06-24 11:13 | CASEMGMT ---
Addendum entered by Stephen Becker 06/24/20 16:00: Per Alex, [employer], inquiring if Oxygen liter flow can be turned up higher than 2 L/M if needed @ home. OCTAVIO BERMUDEZ spoke w/Dr Murphy re: same. She states, per Dr Guzmán, he wants O2 sats to maintain > 92% and script obtained from Dr Murphy for O2 to be 2-4 L/M to maintain O2 sats > 92% and faxed to [email or web address] at this time. Alex [employer], made aware of same and will update pt's of new O2 orders. Addendum entered by Stephen Becker 06/24/20 13:04: Call received from [employer]. She states a commercial maintenance technician has been to pt's home and has checked all the oxygen equipment and they confirm it is all functioning properly. Dr Murphy notified. Original Note: OCTAVIO BERMUDEZ NOTE: Dr Murphy voices concern re: oxygen equipment at home and requesting this is checked by the company to ensure it is functioning properly prior to pt being discharged. Call placed to [employer] and she was made aware of request for Oxygen equipment to be checked at home to ensure it is functioning properly. She states she will contact pt's to make arrangements for someone from [email or web address] to go out today and she will return call to this RN CM once equipment check has been completed. Dr Murphy made aware. Jun VELEZN OCTAVIO CM
--- NOTE | 2020-06-24 12:45 | PN_ITS ---
Subjective: Patient overnight with no acute events per self and per nursing report. This morning he notes that he does feel as though he is breathing better and coughing less. He has been working with therapies and nursing staff for oxygenation assessments with noted stability on 2 L nasal cannula even with activity although he did desaturate with coughing fit but quickly resolved up to 90 to 92% on 2 L nasal cannula. Discussed with case management need for discussion with oxygen company for home assessment of oxygen supply to assure functioning appropriately. From review of prior admission patient's weight initially on 06/14/2020 193 pounds, currently 206 pounds at current presentation. Patient denies fevers, chills, nausea, emesis, abdominal pain, chest pain. Objective: Physical Examination: General: awake, alert, oriented x 3 and cooperative, laying in the ICU COVID bed, no acute distress, less coughing, improved effort and air movement. Skin: normal color, turgor, no icterus, cyanosis. HEENT: AT/NC, EOMI, PERRLA, MMM, thrush. Lungs: Less coughing than the prior evaluation, less rhonchi, better air movement, still diminished bases and mild crackles, improved effort, no obvious evidence of wheezing. Heart: Regular rate and rhythm; no gallop, rub audible. Abdomen: soft, obese, NTTP, ND, normal BS. Extremities: no cyanosis, clubbing, mild bilateral ankle 1+ edema. Neurological: patient awake, alert, oriented x 3; cognitive function intact; pupils equally reactive to light and accomodation; cranial nerves II-XII grossly normal, moving all 4 extremities, no focal deficits, strength improving, moderately to severely global decreased. Psychiatric: affect appears less fatigued, more calm, no acute evidence of depressive or anxiety feelings. Vitals/I&O's: Vital Signs Temp Pulse Resp BP Pulse Ox 99.5 F H 75 18 123/60 H 95 06/24/20 10:25 06/24/20 10:25 06/24/20 10:25 06/24/20 10:06/24/20 10:25 Oxygen Flow Rate (L/min) [ 2 AMBULATION with Oxygen] Oxygen Flow Rate (L/min) 2 Oxygen Delivery Method Nasal Cannula Weight: 205 lb 11.06 oz Body Mass Index (BMI) 32.3 Finger Stick Blood Glucose 104 Intake and Output for Last 24 Hours 06/22/20 06/23/20 06/24/20 23:59 23:59 23:59 Intake Total 1050 / 1550 1040 / 1040 Output Total 2200 / 2650 1500 / 1500 Balance -1150 / -1100 -460 / -460 Microbiology Past 72 Hours 06/23/20 21:15 Sputum, Expectorated/Coughed Gram Stain - Final 06/23/20 15:05 Mucosa - Nasopharyngeal Respiratory Panel (PCR) - Final Laboratory Results 06/23/20 12:47: POC Glucose 142 H 06/23/20 15:05: COVID-19 ([facility]) Cancelled 06/23/20 16:52: POC Glucose 139 H 06/23/20 20:59: POC Glucose 131 H 06/24/20 05:40: WBC 8.5, RBC 2.99 L, Hgb 8.5 L, Hct 26.5 L, MCV 88.6, MCH 28.4, MCHC 32.1, RDW Std Deviation 57.2 H, RDW Coeff of Aezem 17.7 H, Plt Count 233, MPV 10.7, Immature Gran % (Auto) 0.800, Neut % (Auto) 71.5 H, Lymph % (Auto) 18.9 L, [place] % (Auto) 6.8, Eos % (Auto) 1.9, Baso % (Auto) 0.1, Absolute Neuts (auto) 6.1, Absolute Lymphs (auto) 1.61, Nucleated RBC % 0 06/24/20 05:40: Sodium 140, Potassium 4.2, Chloride 105, Carbon Dioxide 33.0 H, Anion Gap 2 L, BUN 31 H, Creatinine 1.32 H, Estim Creat Clear Calc 45.21, Est GFR (MDRD) Af Amer 68, Est GFR (MDRD) Non-Af 56 L, BUN/Creatinine Ratio 23.5 H, Glucose 91, Calcium 8.1 L, Total Bilirubin 0.70, AST 23, ALT 43, Alkaline Phosphatase 63, Total Protein 5.9 L, Albumin 2.1 L, Globulin 3.8, Albumin/Globulin Ratio 0.6 L 06/24/20 06:39: POC Glucose 87 Current Medications Acetaminophen (Tylenol) 650 mg PO Q4H PRN PRN PRN Reason: fever, pain 1-07/09 Last Admin: 06/24/20 10:33 Dose: 650 mg Documented by: Albuterol Sulfate (Ventolin Aerosols) 2.5 mg INHALATION Q2H PRN PRN PRN Reason: Dyspnea, wheezing Amiodarone HCl (Cordarone) 100 mg PO DAILY [facility] Last Admin: 06/24/20 10:26 Dose: 100 mg Documented by: Amlodipine Besylate (Norvasc) 10 mg PO DAILY@1700 [facility] Last Admin: 06/23/20 16:59 Dose: 10 mg Documented by: Apixaban (Eliquis) 5 mg PO BID [facility] Last Admin: 06/24/20 10:27 Dose: 5 mg Documented by: Atorvastatin Calcium (Lipitor) 40 mg PO QHS [facility] Last Admin: 06/23/20 21:04 Dose: 40 mg Documented by: Balsalazide (Balsalazide Disodium) 750 mg PO BID [facility] Last Admin: 06/24/20 10:27 Dose: 750 mg Documented by: Calcium/Vitamin D (Os-Abiel 500mg + D) 1 tablet PO DAILY [facility] Last Admin: 06/24/20 10:26 Dose: 1 tablet Documented by: [facility]) [facility] Last Admin: 06/24/20 10:26 Dose: 25 mg Documented by: Dextrose (D50w Syringe) 0 gm IV X1 PRN; Protocol PRN Reason: Hypoglycemia Diltiazem HCl (Cardizem Cd) 360 mg PO DAILY [facility] Last Admin: 06/24/20 10:33 Dose: 360 mg Documented by: Duloxetine HCl (Cymbalta) 60 mg PO DAILY [facility] Last Admin: 06/24/20 10:26 Dose: 60 mg Documented by: Fluconazole (Diflucan) 100 mg PO DAILY [facility] Last Admin: 06/24/20 10:27 Dose: 100 mg Documented by: Furosemide (Lasix) 40 mg IV DAILY [facility] Gabapentin (Neurontin) 600 mg PO BID [facility] Last Admin: 06/24/20 10:26 Dose: 600 mg Documented by: Glucagon () 1 mg IM .X1 PRN PRN Reason: Hypoglycemia Guaifenesin (Robitussin) 10 ml PO Q4H PRN PRN PRN Reason: COUGH Last Admin: 06/24/20 10:33 Dose: 10 ml Documented by: Hydralazine HCl (Apresoline) 100 mg PO TID@0800,1700,2200 [facility] Last Admin: 06/24/20 10:25 Dose: 100 mg Documented by: Sodium Chloride () 250 mls @ 15 mls/hr IV .[id number] PRN PRN Reason: Saline Flush Sodium Chloride () 250 mls @ 15 mls/hr IV .[id number] PRN PRN Reason: Additional IVPB Infusion Insulin Human Lispro (Humalog Kwikpen ([facility])) 0 unit SC ACHS [facility]; Protocol Last Admin: 06/24/20 06:47 Dose: Not Given Documented by: Isosorbide Mononitrate (Imdur) 60 mg PO BID [facility] Last Admin: 06/24/20 10:26 Dose: 60 mg Documented by: Lisinopril (Zestril) 40 mg PO QHS [facility] Last Admin: 06/23/20 21:04 Dose: 40 mg Documented by: Loratadine (Claritin) 10 mg PO QHS [facility] Last Admin: 06/23/20 21:04 Dose: 10 mg Documented by: Melatonin (Melatonin) 3 mg PO QHS PRN PRN PRN Reason: INSOMNIA Last Admin: 06/23/20 21:07 Dose: 3 mg Documented by: Pantoprazole Sodium (Protonix) 20 mg PO DAILY [facility] Last Admin: 06/24/20 10:27 Dose: 20 mg Documented by: Phenol/Menthol (Chloraseptic ([facility])) 5 spray MM Q2H PRN PRN PRN Reason: SORE THROAT Last Admin: 06/24/20 10:28 Dose: 5 spray Documented by: Potassium Chloride (K-Dur) 10 meq PO DAILY [facility] Last Admin: 06/24/20 10:26 Dose: 10 meq Documented by: Sodium Chloride () 10 - 40 ml IV UD PRN PRN Reason: SALINE FLUSH Last Admin: 06/23/20 21:02 Dose: 10 ml Documented by: STROKE Vital Signs/Narrative: Vital Signs Temp Pulse Resp BP Pulse Ox 06/24/20 10:25 99.5 F H 75 18 123/60 H 95 06/24/20 10:03 93 Medical Necessity - Tobacco Use Smoking Status: Former smoker Assessment/Plan All Active Problems (Last Reviewed 06/14/20 @ 04:[address] Pedro Ferreira MD) Chest tightness (Resolved) Hypertensive urgency (Resolved) Left wrist pain (Resolved) Syncopal episodes (Resolved) Ureteral calculus, right (Resolved) The patient is a 74 y/o M w/ PMHx: PAF, HTN, HLD, Diabetes mellitus type II w/ peripheral neuropathy, Inflammatory bowel disease, CKD stage III, Rheumatoid arthritis, Anxiety and Depression who presents to the [facility] ED on 06/23/20 with history of recent discharge on 06/21/2020 following 8-day inpatient stay for COVID-19 pneumonia and possible overlapping bacterial pneumonia now returning with worsening dyspnea, noted home oxygen saturation 84% despite his usage of his 2 L nasal cannula with inability to increase his oxygen further with lightheadedness and dizziness prompting ED evaluation. 1. Dyspnea, Cough with Hypoxia, Recurrent w/ recent COVID-19 with Bilateral Pneumonia with oral thrush demonstrated: Patient admitted to medical surgical bed area secondary to ongoing hypoxia noted in the ED, previously discharged on 2 L nasal cannula but requiring 4 L nasal cannula. Admission work-up included CBC with WBC 10.2, hemoglobin 8.6, platelet 266 with left shift, CMP with BUN/creatinine 31/1.40, glucose 125 otherwise not marked appearing, troponin 0.024, chest x-ray with continued airspace disease bilaterally with cardiomegaly. Given recurrent presentation requested infectious disease evaluation with initiation of oral fluconazole for thrush, respiratory viral panel obtained and noted to be unremarkable, sputum culture pending, given weight increase and possibly association with fluids from recent admission will administer IV Lasix and temporarily hold patient's oral regimen as may be contributing to his respiratory status, closely monitor renal function given usage, no market WC elevation or left shift evident therefore will defer antibiotics however patient does have low-grade T 99.5 otherwise feeling improved. Patient recently given during his initial COVID admission Decadron, remdesivir severe as well as plasma. Will await repeat assessment for PT and OT as well as infectious disease to determine potential discharge to home on continued confirm 2 L nasal cannula with oxygen company assessment of patient's home supply prior to return if appropriate. Patient with positive COVID testing 06/06/20 therefore may d/c precautions/isolation at 20 day jonathan. 2. PAF: We will continue patient home Eliquis in addition to Coreg, Cardizem and amiodarone. 3. Hypertension: Continue home regimen including Coreg, Cardizem, Lasix, hydralazine, Imdur, lisinopril, Norvasc with hold parameters as needed, PRN hydralazine. 4. Hyperlipidemia: Continue home statin regimen. 5. Chronic Kidney Disease Stage III: Admission BUN/Cr 31/1.40, baseline renal function 0.9-1.3, was increased during recent admission secondary to his acute presentation but improving, 06/24/2020 BUN/creatinine 31/1.32, stable. 6. Normocytic anemia: Admission hemoglobin 8.6, baseline 8-10, appears stable, 06/24/2020 hemoglobin 8.5, continue to trend as needed. 7. Diabetes mellitus type II: Hold oral home regimen, continue home insulin regimen, ADA diet, accu checks w/ ISS, continue patient home gabapentin regimen. 8. Anxiety and depression: We will continue patient home Cymbalta regimen. 9. Inflammatory bowel disease/rheumatoid arthritis: We will continue patient's home regimen including balsalazide and continued outpatient infliximab which was last dosed approximately 10 weeks prior. 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 10. GERD: We will continue patient on PPI. 11. DVT prophylaxis: SCDs, continue home Eliquis regimen. 12. CODE STATUS: Full, patient has HCPOA and LW in place. OBSV E&M: 19701 Subsequent observation care L2
--- NOTE | 2020-06-24 12:51 | CASEMGMT ---
Phone call placed to patient due to patient being in isolation precautions. Intro role of CM to patient and RAO form explained re: Observation status for treatment of shortness of breath. Explained hospitalization will be paid per? insurance policy for Outpatient billing. Discussed Pharmacy section of RAO form and self administered medication guideline.? Pt verbalizes understanding and expressed concerns regarding potential additional costs. Pt's questions answered. Due to precautions, signature noted as via telephone. Copy of form provided to patient via pt's nurse. Form also placed on paper chart. Bishnu Langley RN CM
--- NOTE | 2020-06-24 14:04 | PCM.PN.ID ---
Subjective: Feeling better, having sputum, breathing improved, no fever - Physical Exam Vitals/I&O's: Vital Signs Temp Pulse Resp BP Pulse Ox 99.5 F H 75 18 123/60 H 95 06/24/20 10:25 06/24/20 10:25 06/24/20 10:25 06/24/20 10:25 06/24/20 10:25 Oxygen Flow Rate (L/min) [ 2 AMBULATION with Oxygen] Oxygen Flow Rate (L/min) 2 Oxygen Delivery Method Nasal Cannula Weight: 93.3 kg Body Mass Index (BMI) 32.3 Finger Stick Blood Glucose 104 Intake and Output for Last 24 Hours 06/22/20 06/23/20 06/24/20 23:59 23:59 23:59 Intake Total 1050 / 1550 1040 / 1040 Output Total 2200 / 2650 1500 / 1500 Balance -1150 / -1100 -460 / -460 General: Alert, Cooperative, No apparent distress Lungs: Rhonchi Cardiovascular: Regular rate, Regular Rhythm Abdomen: Soft, Non Tender, Non-Distended Skin: No rashes Microbiology Past 72 Hours 06/23/20 21:15 Sputum, Expectorated/Coughed Gram Stain - Final 06/23/20 15:05 Mucosa - Nasopharyngeal Respiratory Panel (PCR) - Final Laboratory Results 06/23/20 15:05: COVID-19 ([facility]) Cancelled 06/23/20 16:52: POC Glucose 139 H 06/23/20 20:59: POC Glucose 131 H 06/24/20 05:40: WBC 8.5, RBC 2.99 L, Hgb 8.5 L, Hct 26.5 L, MCV 88.6, MCH 28.4, MCHC 32.1, RDW Std Deviation 57.2 H, RDW Coeff of Azeem 17.7 H, Plt Count 233, MPV 10.7, Immature Gran % (Auto) 0.800, Neut % (Auto) 71.5 H, Lymph % (Auto) 18.9 L, [place] % (Auto) 6.8, Eos % (Auto) 1.9, Baso % (Auto) 0.1, Absolute Neuts (auto) 6.1, Absolute Lymphs (auto) 1.61, Nucleated RBC % 0 06/24/20 05:40: Sodium 140, Potassium 4.2, Chloride 105, Carbon Dioxide 33.0 H, Anion Gap 2 L, BUN 31 H, Creatinine 1.32 H, Estim Creat Clear Calc 45.21, Est GFR (MDRD) Af Amer 68, Est GFR (MDRD) Non-Af 56 L, BUN/Creatinine Ratio 23.5 H, Glucose 91, Calcium 8.1 L, Total Bilirubin 0.70, AST 23, ALT 43, Alkaline Phosphatase 63, Total Protein 5.9 L, Albumin 2.1 L, Globulin 3.8, Albumin/Globulin Ratio 0.6 L 06/24/20 06:39: POC Glucose 87 Current Medications Acetaminophen (Tylenol) 650 mg PO Q4H PRN PRN PRN Reason: fever, pain -07/09 Last Admin: 06/24/20 10:33 Dose: 650 mg Documented by: Albuterol Sulfate (Ventolin Aerosols) 2.5 mg INHALATION Q2H PRN PRN PRN Reason: Dyspnea, wheezing Amiodarone HCl (Cordarone) 100 mg PO DAILY [facility] Last Admin: 06/24/20 10:26 Dose: 100 mg Documented by: Amlodipine Besylate (Norvasc) 10 mg PO DAILY@1700 [facility] Last Admin: 06/23/20 16:59 Dose: 10 mg Documented by: Apixaban (Eliquis) 5 mg PO BID [facility] Last Admin: 06/24/20 10:27 Dose: 5 mg Documented by: Atorvastatin Calcium (Lipitor) 40 mg PO QHS [facility] Last Admin: 06/23/20 21:04 Dose: 40 mg Documented by: Balsalazide (Balsalazide Disodium) 750 mg PO BID [facility] Last Admin: 06/24/20 10:27 Dose: 750 mg Documented by: Calcium/Vitamin D (Os-Abiel 500mg + D) 1 tablet PO DAILY [facility] Last Admin: 06/24/20 10:26 Dose: 1 tablet Documented by: [facility] Last Admin: 06/24/20 10:26 Dose: 25 mg Documented by: Dextrose (D50w Syringe) 0 gm IV X1 PRN; Protocol PRN Reason: Hypoglycemia Diltiazem HCl (Cardizem Cd) 360 mg PO DAILY [facility] Last Admin: 06/24/20 10:33 Dose: 360 mg Documented by: Duloxetine HCl (Cymbalta) 60 mg PO DAILY [facility] Last Admin: 06/24/20 10:26 Dose: 60 mg Documented by: Fluconazole (Diflucan) 100 mg PO DAILY [facility] Last Admin: 06/24/20 10:27 Dose: 100 mg Documented by: Furosemide (Lasix) 40 mg IV DAILY [facility] Gabapentin (Neurontin) 600 mg PO BID [facility] Last Admin: 06/24/20 10:26 Dose: 600 mg Documented by: Glucagon () 1 mg IM .X1 PRN PRN Reason: Hypoglycemia Guaifenesin (Robitussin) 10 ml PO Q4H PRN PRN PRN Reason: COUGH Last Admin: 06/24/20 10:33 Dose: 10 ml Documented by: Hydralazine HCl (Apresoline) 100 mg PO TID@0800,1700,2200 [facility] Last Admin: 06/24/20 10:25 Dose: 100 mg Documented by: Sodium Chloride () 250 mls @ 15 mls/hr IV .[id number] PRN PRN Reason: Saline Flush Sodium Chloride () 250 mls @ 15 mls/hr IV .[id number] PRN PRN Reason: Additional IVPB Infusion Insulin Human Lispro (Humalog Kwikpen (Bkc)) [facility]; Protocol Last Admin: 06/24/20 06:47 Dose: Not Given Documented by: Isosorbide Mononitrate (Imdur) 60 mg PO BID [facility] Last Admin: 06/24/20 10:26 Dose: 60 mg Documented by: Lisinopril (Zestril) 40 mg PO QHS [facility] Last Admin: 06/23/20 21:04 Dose: 40 mg Documented by: Loratadine (Claritin) 10 mg PO QHS [facility] Last Admin: 06/23/20 21:04 Dose: 10 mg Documented by: Melatonin (Melatonin) 3 mg PO QHS PRN PRN PRN Reason: INSOMNIA Last Admin: 06/23/20 21:07 Dose: 3 mg Documented by: Pantoprazole Sodium (Protonix) 20 mg PO DAILY [facility] Last Admin: 06/24/20 10:27 Dose: 20 mg Documented by: Phenol/Menthol (Chloraseptic (Bkc)) 5 spray MM Q2H PRN PRN PRN Reason: SORE THROAT Last Admin: 06/24/20 10:28 Dose: 5 spray Documented by: Potassium Chloride (K-Dur) 10 meq PO DAILY [facility] Last Admin: 06/24/20 10:26 Dose: 10 meq Documented by: Sodium Chloride () 10 - 40 ml IV UD PRN PRN Reason: SALINE FLUSH Last Admin: 06/23/20 21:02 Dose: 10 ml Documented by: Medical Necessity - Tobacco Use Smoking Status: Former smoker Route of nutrition/ use of supplements: [] Nutritional Intake: [] IV Site: [] Castellano Catheter: [] - Assessment/Plan Antibiotics: [] Assessment/Plan: [] hypoxia with recent covid - thrush on exam, giving po fluconazole. Overall improving off of any other abx. Given decadron, remdesivir, and plasma on recent admit. Ok for d/c home on 5 more days of fluconazole. Will follow, juventino Murphy
--- NOTE | 2020-06-24 14:22 | DCINST_ITS ---
- Discharge Diagnoses Current Active Problems: 1. Dyspnea, Cough with Hypoxia, Recurrent w/ recent COVID-19 with Bilateral Pneumonia with oral thrush demonstrated 2. PAF 3. Hypertension 4. Hyperlipidemia 5. Chronic Kidney Disease Stage III 6. Normocytic anemia 7. Diabetes mellitus type II 8. Anxiety and depression 9. Inflammatory bowel disease/rheumatoid arthritis 10. GERD You will use the following diet at home:: Calorie/Carbohydrate Controlled (specify 1200, 1400, etc) - 1800 ADA, cardiac diet. Your food should be the consistency of: Regular Your liquids should be the consistency of: Regular/Thin Discharge Activity: - - Advise mild activity until re-evaluated per your primary care physician. Call your doctor if you observe: Fever of 101 or Higher, Inability to urinate, Inability to have a bowel movement, Shortness of breath, Dizziness, Fainting spells, Chest pain, Uncontrolled pain Instructions: Traveling with Oxygen, Using Oxygen Safely, Using Oxygen at Home, Oral Thrush Additional Instructions: When can positive COVID-19 patient be discharged, what are the requirements and what needs to be in place for discharge? ?You can be discharged when you are clinically stable. ?You do not need to meet criteria for transmission-based precautions to be discharged as these may be continued at home. ?Household members must have access to PPE and willing to adhere to precaution measures at home. ?We prefer you use a separate bedroom and bathroom. ?Your oxygen has been reassessed and evaluted prior to your return to home. 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 Oral Thrush: Please complete the 5 additional day course of oral fluconazole to assist with your oral comfort and resolution of the fungal infection in your mouth. Allergies/Adverse Reactions: Allergies aspirin Allergy (Severe, Verified 06/23/20 01:07) Mouth swelling donepezil [From Aricept] Adverse Reaction (Severe, Verified 06/23/20 01:07) Swelling morphine Adverse Reaction (Severe, Verified 06/23/20 01:07) UNABLE TO URINATE Medications to take at Discharge Infliximab-DYYB [Inflectra] 100 mg IV .COMPLEX 02/18/17 Esomeprazole Magnesium [Nexium 24Hr] 20 mg PO DAILY 04/15/17 Loratadine [Claritin] 10 mg PO QHS 04/15/17 Glimepiride [Amaryl] 2 mg PO DAILY 01/22/18 Balsalazide Disodium 750 mg PO BID 09/17/18 Multivit-Min/FA/Lycopen/Lutein [Centrum Silver Men Tablet] 1 ea PO DAILY 09/17/18 calcium carbonate-vitamin D3 600 mg (1,500 mg)-800 unit tablet 1 tab PO DAILY 06/02/19 duloxetine 60 mg capsule,delayed release 60 mg PO DAILY 06/02/19 gabapentin 600 mg tablet 600 mg PO BID tab 06/02/19 Ipratropium [place] 15 ml NS PRN PRN 01/11/20 Apixaban [Eliquis] 5 mg PO BID 03/24/20 DiphenhydrAMINE [Benadryl] 25 mg PO BID PRN PRN 03/24/20 Rosuvastatin Calcium 20 mg PO DAILY 03/24/20 potassium chloride 10 mEq tablet,extended release(part/cryst) 10 meq PO DAILY #30 tab 04/18/20 amiodarone 200 mg tablet 100 mg PO DAILY tab 05/25/20 amlodipine 10 mg tablet 10 mg PO DAILY tab 05/25/20 carvedilol 25 mg tablet 25 mg PO BID 05/25/20 furosemide 40 mg tablet 40 mg PO DAILY tab 05/25/20 hydralazine 100 mg tablet 100 mg PO TID tab 05/25/20 isosorbide mononitrate 60 mg tablet,extended release 24 hr 60 mg PO BID #60 tab 05/25/20 lisinopril 40 mg tablet 40 mg PO DAILY 05/25/20 Diltiazem HCl [Diltiazem 24Hr ER (Cd)] 360 mg PO DAILY 06/06/20 Albuterol IH (ProAir) [Proair Hfa] 1 - 2 puff INHALATION Q4H PRN PRN #1 inhaler 06/24/20 Fluconazole [Diflucan] 100 mg PO DAILY #5 tab 06/24/20 Guaifenesin [Mucinex] 1,200 mg PO BID #20 tab 06/24/20 Phenol/Glycerin [Chloraseptic Max [place]] 30 ml MM Q2H PRN PRN #1 bottle 06/24/20 The following prescriptions were given: Phenol/Glycerin [Chloraseptic Max [place]] 30 ml MM Q2H PRN PRN #1 bottle PRN Reason: Sore Throat Transmission Status: Pending to [facility] Fluconazole [Diflucan] 100 mg PO DAILY #5 tab Transmission Status: Pending to [id number] Guaifenesin [Mucinex] 1,200 mg PO BID #20 tab Transmission Status: Pending to [facility] Albuterol IH (ProAir) [Proair Hfa] 1 - 2 puff INHALATION Q4H PRN PRN #1 inhaler PRN Reason: dyspnea, wheezing Transmission Status: Pending to [facility] Primary Care Physician: Jayme Yang MD [Primary Care Provider] - Please follow up with your Primary Care Physician in: Please follow-up within 2- 3 days to review admission. Test Results: Test results from this visit will be discussed in further detail at your follow- up appointment, if applicable. Proposed Discharge Date: 06/24/20
--- NOTE | 2020-06-24 14:29 | DS.PCM_ITS ---
Discharge Date and Diagnosis Date of Admission: 06/23/20 Date of Discharge: 06/24/20 - Primary Discharge Diagnosis Acute Problems: 1. Dyspnea, Cough with Hypoxia, Recurrent w/ recent COVID-19 with Bilateral Pneumonia with oral thrush demonstrated 2. PAF 3. Hypertension 4. Hyperlipidemia 5. Chronic Kidney Disease Stage III 6. Normocytic anemia 7. Diabetes mellitus type II 8. Anxiety and depression 9. Inflammatory bowel disease/rheumatoid arthritis 10. GERD - Secondary Discharge Diagnosis Chronic Problems: Chronic Problems (Last Reviewed 06/14/20 @ 04:[address] Pedro Ferreira MD) Kidney stones (Chronic) Dementia (Chronic) Ureterolithiasis (Chronic) A-fib (Chronic) Asthma (Chronic) Sepsis (Chronic) Severe acute respiratory syndrome coronavirus 2 (SARS-CoV-2) infection ruled out (Chronic) COVID-19 virus infection (Chronic) Asymptomatic hypertensive urgency (Chronic) Essential hypertension (Chronic) Pulmonary hypertension (Chronic) RVSP 40 mmHg SUPA (obstructive sleep apnea) (Chronic) CPAP 15 cm of water Diverticula of colon (Chronic) Colitis (Chronic) Atrial fibrillation with RVR (Chronic) DM2 (diabetes mellitus, type 2) (Chronic) Hyperlipidemia (Chronic) Inflammatory bowel disease (Chronic) Benign essential HTN (Chronic) Rheumatoid aortitis (Chronic) Hospital Course and Treatment Operations: None Procedures: EKG Summary of Care Provided: The patient is a 74 y/o M w/ PMHx: PAF, HTN, HLD, Diabetes mellitus type II w/ peripheral neuropathy, Inflammatory bowel disease, CKD stage III, Rheumatoid arthritis, Anxiety and Depression who presented to the [facility] ED on 06/23/20 with history of recent discharge on 06/21/2020 following 8-day inpatient stay for COVID-19 pneumonia and possible overlapping bacterial pneumonia now returning with worsening dyspnea, noted home oxygen saturation 84% despite his usage of his 2 L nasal cannula with inability to increase his oxygen further with lightheadedness and dizziness prompting ED evaluation. Patient admitted to medical surgical bed area secondary to ongoing hypoxia noted in the ED, previously discharged on 2 L nasal cannula but requiring 4 L nasal cannula. Admission work-up included CBC with WBC 10.2, hemoglobin 8.6, platelet 266 with left shift, CMP with BUN/creatinine 31/1.40, glucose 125 otherwise not marked appearing, troponin 0.024, chest x-ray with continued airspace disease bilaterally with cardiomegaly. Given recurrent presentation requested infectious disease evaluation with initiation of oral fluconazole for thrush, respiratory viral panel obtained and noted to be unremarkable, sputum culture pending, given weight increase and possibly association with fluids from recent admission administered IV Lasix dose with oral transition following. Patient with no market WBC elevation or left shift evident therefore will defer antibiotics. Patient recently given during his initial COVID admission Decadron, remdesivir severe as well as plasma. Patient with several oxygenation assessments with confirmed continuation plan for 2L NC. Oxygen home supply was assessed to be cautious. Admission BUN/Cr 31/1.40, baseline renal function 0.9-1.3, was increased during recent admission secondary to his acute presentation but improved, 06/24/2020 BUN/creatinine 31/1.32, stable. Admission hemoglobin 8.6, baseline 8-10, appears stable, 06/24/2020 hemoglobin 8.5. Infectious disease requested 5 additional days of oral fluconazole and felt patient appropriate for discharge to home. Patient discharged to home with offered home therapies on 06/24/2020 given clinical improvement with encouraged early PCP follow-up. - Physical Exam Vitals/I&O's: Vital Signs Temp Pulse Resp BP Pulse Ox 99.5 F H 75 18 123/60 H 95 06/24/20 10:25 06/24/20 10:25 06/24/20 10:25 06/24/20 10:25 06/24/20 10:25 Oxygen Flow Rate (L/min) [ 2 AMBULATION with Oxygen] Oxygen Flow Rate (L/min) 2 Oxygen Delivery Method Nasal Cannula Weight: 205 lb 11.06 oz Body Mass Index (BMI) 32.3 Finger Stick Blood Glucose 104 Intake and Output for Last 24 Hours 06/22/20 06/23/20 06/24/20 23:59 23:59 23:59 Intake Total 1050 / 1550 1040 / 1040 Output Total 2200 / 2650 1500 / 1500 Balance -1150 / -1100 -460 / -460 Microbiology Past 72 Hours 06/23/20 21:15 Sputum, Expectorated/Coughed Gram Stain - Final 06/23/20 15:05 Mucosa - Nasopharyngeal Respiratory Panel (PCR) - Final Laboratory Results 06/23/20 15:05: COVID-19 ([facility]) Cancelled 06/23/20 16:52: POC Glucose 139 H 06/23/20 20:59: POC Glucose 131 H 06/24/20 05:40: WBC 8.5, RBC 2.99 L, Hgb 8.5 L, Hct 26.5 L, MCV 88.6, MCH 28.4, MCHC 32.1, RDW Std Deviation 57.2 H, RDW Coeff of Azeem 17.7 H, Plt Count 233, MPV 10.7, Immature Gran % (Auto) 0.800, Neut % (Auto) 71.5 H, Lymph % (Auto) 18.9 L, [place] % (Auto) 6.8, Eos % (Auto) 1.9, Baso % (Auto) 0.1, Absolute Neuts (auto) 6.1, Absolute Lymphs (auto) 1.61, Nucleated RBC % 0 06/24/20 05:40: Sodium 140, Potassium 4.2, Chloride 105, Carbon Dioxide 33.0 H, Anion Gap 2 L, BUN 31 H, Creatinine 1.32 H, Estim Creat Clear Calc 45.21, Est GFR (MDRD) Af Amer 68, Est GFR (MDRD) Non-Af 56 L, BUN/Creatinine Ratio 23.5 H, Glucose 91, Calcium 8.1 L, Total Bilirubin 0.70, AST 23, ALT 43, Alkaline Phosphatase 63, Total Protein 5.9 L, Albumin 2.1 L, Globulin 3.8, Albumin/Globulin Ratio 0.6 L 06/24/20 06:39: POC Glucose 87 Current Medications Acetaminophen (Tylenol) 650 mg PO Q4H PRN PRN PRN Reason: fever, pain 1-07/09 Last Admin: 06/24/20 10:33 Dose: 650 mg Documented by: Albuterol Sulfate (Ventolin Aerosols) 2.5 mg INHALATION Q2H PRN PRN PRN Reason: Dyspnea, wheezing Amiodarone HCl (Cordarone) 100 mg PO DAILY [facility] Last Admin: 06/24/20 10:26 Dose: 100 mg Documented by: Amlodipine Besylate (Norvasc) 10 mg PO DAILY@1700 [facility] Last Admin: 06/23/20 16:59 Dose: 10 mg Documented by: Apixaban (Eliquis) 5 mg PO BID [facility] Last Admin: 06/24/20 10:27 Dose: 5 mg Documented by: Atorvastatin Calcium (Lipitor) 40 mg PO QHS [facility] Last Admin: 06/23/20 21:04 Dose: 40 mg Documented by: Balsalazide (Balsalazide Disodium) 750 mg PO BID [facility] Last Admin: 06/24/20 10:27 Dose: 750 mg Documented by: Calcium/Vitamin D (Os-Abiel 500mg + D) 1 tablet PO DAILY [facility] Last Admin: 06/24/20 10:26 Dose: 1 tablet Documented by: [facility] Last Admin: 06/24/20 10:26 Dose: 25 mg Documented by: Dextrose (D50w Syringe) 0 gm IV X1 PRN; Protocol PRN Reason: Hypoglycemia Diltiazem HCl (Cardizem Cd) 360 mg PO DAILY [facility] Last Admin: 06/24/20 10:33 Dose: 360 mg Documented by: Duloxetine HCl (Cymbalta) 60 mg PO DAILY [facility] Last Admin: 06/24/20 10:26 Dose: 60 mg Documented by: Fluconazole (Diflucan) 100 mg PO DAILY [facility] Last Admin: 06/24/20 10:27 Dose: 100 mg Documented by: Furosemide (Lasix) 40 mg IV DAILY [facility] Gabapentin (Neurontin) 600 mg PO BID [facility] Last Admin: 06/24/20 10:26 Dose: 600 mg Documented by: Glucagon () 1 mg IM .X1 PRN PRN Reason: Hypoglycemia Guaifenesin (Robitussin) 10 ml PO Q4H PRN PRN PRN Reason: COUGH Last Admin: 06/24/20 10:33 Dose: 10 ml Documented by: Hydralazine HCl (Apresoline) 100 mg PO TID@0800,1700,2200 [facility] Last Admin: 06/24/20 10:25 Dose: 100 mg Documented by: Sodium Chloride () 250 mls @ 15 mls/hr IV .[id number] PRN PRN Reason: Saline Flush Sodium Chloride () 250 mls @ 15 mls/hr IV .[id number] PRN PRN Reason: Additional IVPB Infusion Insulin Human Lispro (Humalog Kwikpen (Bkc)) 0 unit SC ACHS [facility]; Protocol Last Admin: 06/24/20 06:47 Dose: Not Given Documented by: Isosorbide Mononitrate (Imdur) 60 mg PO BID [facility] Last Admin: 06/24/20 10:26 Dose: 60 mg Documented by: Lisinopril (Zestril) 40 mg PO QHS [facility] Last Admin: 06/23/20 21:04 Dose: 40 mg Documented by: Loratadine (Claritin) 10 mg PO QHS [facility] Last Admin: 06/23/20 21:04 Dose: 10 mg Documented by: Melatonin (Melatonin) 3 mg PO QHS PRN PRN PRN Reason: INSOMNIA Last Admin: 06/23/20 21:07 Dose: 3 mg Documented by: Pantoprazole Sodium (Protonix) 20 mg PO DAILY [facility] Last Admin: 06/24/20 10:27 Dose: 20 mg Documented by: Phenol/Menthol (Chloraseptic (Bkc)) 5 spray MM Q2H PRN PRN PRN Reason: SORE THROAT Last Admin: 06/24/20 10:28 Dose: 5 spray Documented by: Potassium Chloride (K-Dur) 10 meq PO DAILY [facility] Last Admin: 06/24/20 10:26 Dose: 10 meq Documented by: Sodium Chloride () 10 - 40 ml IV UD PRN PRN Reason: SALINE FLUSH Last Admin: 06/23/20 21:02 Dose: 10 ml Documented by: Discharge Activity: - - Advise mild activity until re-evaluated per your primary care physician. Call your doctor if you observe: Fever of 101 or Higher, Inability to urinate, Inability to have a bowel movement, Shortness of breath, Dizziness, Fainting spells, Chest pain, Uncontrolled pain Home Medications: Medications to take at Discharge Infliximab-DYYB [Inflectra] 100 mg IV .COMPLEX 02/18/17 Esomeprazole Magnesium [Nexium 24Hr] 20 mg PO DAILY 04/15/17 Loratadine [Claritin] 10 mg PO QHS 04/15/17 Glimepiride [Amaryl] 2 mg PO DAILY 01/22/18 Balsalazide Disodium 750 mg PO BID 09/17/18 Multivit-Min/FA/Lycopen/Lutein [Centrum Silver Men Tablet] 1 ea PO DAILY 09/17/18 calcium carbonate-vitamin D3 600 mg (1,500 mg)-800 unit tablet 1 tab PO DAILY 06/02/19 duloxetine 60 mg capsule,delayed release 60 mg PO DAILY 06/02/19 gabapentin 600 mg tablet 600 mg PO BID tab 06/02/19 Ipratropium [place] 15 ml NS PRN PRN 04/13/20 Apixaban [Eliquis] 5 mg PO BID 03/24/20 DiphenhydrAMINE [Benadryl] 25 mg PO BID PRN PRN 03/24/20 Rosuvastatin Calcium 20 mg PO DAILY 03/24/20 potassium chloride 10 mEq tablet,extended release(part/cryst) 10 meq PO DAILY #30 tab 04/18/20 amiodarone 200 mg tablet 100 mg PO DAILY tab 05/25/20 amlodipine 10 mg tablet 10 mg PO DAILY tab 05/25/20 carvedilol 25 mg tablet 25 mg PO BID 05/25/20 furosemide 40 mg tablet 40 mg PO DAILY tab 05/25/20 hydralazine 100 mg tablet 100 mg PO TID tab 05/25/20 isosorbide mononitrate 60 mg tablet,extended release 24 hr 60 mg PO BID #60 tab 05/25/20 lisinopril 40 mg tablet 40 mg PO DAILY 05/25/20 Diltiazem HCl [Diltiazem 24Hr ER ()] 360 mg PO DAILY 06/06/20 Albuterol IH (ProAir) [Proair Hfa] 1 - 2 puff INHALATION Q4H PRN PRN #1 inhaler 06/24/20 Fluconazole [Diflucan] 100 mg PO DAILY #5 tab 06/24/20 Guaifenesin [Mucinex] 1,200 mg PO BID #20 tab 06/24/20 Phenol/Glycerin [Chloraseptic Max [place]] 30 ml MM Q2H PRN PRN #1 bottle 06/24/20 Following Prescriptions Were Given to Patient: Phenol/Glycerin [Chloraseptic Max [place]] 30 ml MM Q2H PRN PRN #1 bottle PRN Reason: Sore Throat Transmission Status: Pending to [facility] Fluconazole [Diflucan] 100 mg PO DAILY #5 tab Transmission Status: Pending to [id number] Guaifenesin [Mucinex] 1,200 mg PO BID #20 tab Transmission Status: Pending to [facility] Albuterol IH (ProAir) [Proair Hfa] 1 - 2 puff INHALATION Q4H PRN PRN #1 inhaler PRN Reason: dyspnea, wheezing Transmission Status: Pending to [facility] Primary Care Physician: Jayme Yang MD [Primary Care Provider] - Please follow up with your Primary Care Physician in: Please follow-up within 2- 3 days to review admission. Patient Instructions: Traveling with Oxygen, Using Oxygen Safely, Using Oxygen at Home, Oral Thrush Disposition: Home with Home Health Minutes spent on discharge:: 35 Patient Condition:: Fair Medical Necessity - Tobacco Use Smoking Status: Former smoker Meaningful Use Info Meaningful Use Diagnoses (Choose all that apply): None applicable OBSV E&M: 36315 Observation care discharge
[2020-06-24 14:30] VITALS: BP 130/58; PULSE 78; RESP 16; TEMP 37.2; O2SAT 93
--- NOTE | 2020-06-24 16:01 | NURSING ---
Extensive discharge instructions given to both the patient and pt's Natasha. Both verbalize understanding that it is ok to turn the oxygen up to 4L if needed to keep oxygen level 92% or above. I also spoke w/retail pharmacy and pt's prescriptions were transferred to [facility] per pt's request.
--- NOTE | 2020-06-27 14:59 | CASEMGMT ---
[facility] DC PHONE CALL DC DATE: 06/25/2020 DC DISPOSITION: Home DC DIAGNOSIS: SARS COVID 2 Attempted call to home phone. No answer and no messaging with name identifier. Jose RAGLAND RN ACM
--- NOTE | 2020-06-30 13:21 | EKG12_ITS ---
Test Reason : DYSRHYTHMIA Blood Pressure : / mmHG Vent. Rate : 076 BPM Atrial Rate : 076 BPM P-R Int : 172 ms QRS Dur : 094 ms QT Int : 414 ms P-R-T Axes : -06 -28 029 degrees QTc Int : 465 ms Normal sinus rhythm Septal infarct , age undetermined Abnormal ECG Confirmed by LIBIA LAUGHLIN, LETY ([id number]), avid editor CRISTI ROOT ([id number]) on 06/30/2020 1:23:10 PM Referred By: FERNANDO Confirmed By:MARTI REZA MD
== END 2020-06-24 16:20 | disposition home or self-care (01) ==
LOC: ED 01:15 → ICU 04:23
PROVIDERS: Admitting Provider Family Medicine; Emergency Provider Student in an Organized Health Care Education/Training Program; PCP Family Medicine; Visit Provider Family Medicine
DX: R06.02 Shortness of breath (principal); R09.02 Hypoxemia; J45.909 Unspecified asthma, uncomplicated; I48.0 Paroxysmal atrial fibrillation; I13.0 Hypertensive heart and chronic kidney disease with heart failure and stage 1 through stage 4 chronic kidney disease, or unspecified chronic kidney disease; E78.5 Hyperlipidemia, unspecified; E11.22 Type 2 diabetes mellitus with diabetic chronic kidney disease; F32.9 Major depressive disorder, single episode, unspecified; F41.9 Anxiety disorder, unspecified; K21.9 Gastro-esophageal reflux disease without esophagitis; M06.9 Rheumatoid arthritis, unspecified; G47.33 Obstructive sleep apnea (adult) (pediatric); I27.20 Pulmonary hypertension, unspecified; E11.42 Type 2 diabetes mellitus with diabetic polyneuropathy; D64.9 Anemia, unspecified; K52.9 Noninfective gastroenteritis and colitis, unspecified; F03.90 Unspecified dementia, unspecified severity, without behavioral disturbance, psychotic disturbance, mood disturbance, and anxiety; Z86.19 Personal history of other infectious and parasitic diseases; Z79.899 Other long term (current) drug therapy; Z79.01 Long term (current) use of anticoagulants; Z99.81 Dependence on supplemental oxygen; Z87.891 Personal history of nicotine dependence; Z79.4 Long term (current) use of insulin
CPT/HCPCS: 71045; 80053; 82962; 83735; 84484; 85025; 87070; 87107; 87205; 87633; 87635; 93005; 94660; 97162; 97166; 99218; 99285; A4216; G0378; U0003

== ENCOUNTER → 2020-07-11 09:29 | Outpatient (CLI) | payer MEDICARE, OTHER, SELFPAY ==
[2019-12-22 06:03] VITALS: BMI 32.4
[2020-06-23 04:49] VITALS: BMI 32.3
[2020-07-11 12:45] LABS: Absolute Lymphocyte Count 2.73 X10^3/uL (0.83-4.51); Basophil# 0.04 X10^3/uL; Basophil% 0.5 % (0-1); Eosinophil# 0.21 X10^3/uL; Eosinophils% 2.6 % (0-5); Hemoglobin 10.1 g/dL (13.0-16.5); Lymphocyte # 2.73 X10^3/ul (4.0); Mean Corp Hgb Conc 30.6 g/dL (32-36); Mean Corpuscular Hgb 28.1 pg (27.0-32.0); Mean Corpuscular Volume 91.9 fL (80-94); Mean Platelet Vol. 10.9 fl (6.2-12.0); Monocyte# 0.95 X10^3/uL; Monocyte% 11.8 % (0-10); NRBC Flagged by Analyzer 0 % (0-5); Neutrophil # 4.04 X10^3/uL (2.7-7.7); Neutrophil % 50.2 % (47-70); Platelet Count 427 K/mm3 (150-450); RBC Distribution Width CV 16.9 % (11.6-14.6); Red Blood Count 3.59 M/mm3 (4.6-6.2)
[2020-07-11 13:12] LABS: ALB/GLOB Ratio 0.6 RATIO (0.9-2.4); AST(SGOT) 28 U/L (15-37); Alanine Aminotransfer ALT/SGPT 33 U/L (16-61); Albumin, Serum 2.9 g/dL (3.2-5.0); Alkaline Phosphatase 91 U/L (45-117); Anion Gap 5 (5-15); BUN 15 mg/dL (7-18); BUN/Creat Ratio 9.3 RATIO (10-20); Calcium,Total 8.6 mg/dL (8.5-10.1); Chloride 108 mmol/L (98-107); Creatinine, Serum 1.61 mg/dL (0.70-1.30); EST Glomerular Filtration Rate 45 mL/min (>60); Est Glom Filt Rate - Afr Amer 54 mL/min (>60); Globulin 5.1 g/dL (2.2-4.2); Glucose 180 mg/dL (74-106); Potassium 3.9 mmol/L (3.5-5.1); Sodium Level 140 mmol/L (136-145)
== END ==
LOC: LAB.FUTURE 09:32 → MTLAB 09:36
PROVIDERS: PCP Family Medicine; Referring Provider Internal Medicine Rheumatology; Visit Provider Internal Medicine Rheumatology
DX: M06.09 Rheumatoid arthritis without rheumatoid factor, multiple sites (principal); M15.9 Polyosteoarthritis, unspecified; K21.00 Gastro-esophageal reflux disease with esophagitis, without bleeding; M47.897 Other spondylosis, lumbosacral region; M51.37 Other intervertebral disc degeneration, lumbosacral region; K51.80 Other ulcerative colitis without complications; Z79.899 Other long term (current) drug therapy
CPT/HCPCS: 36415; 80053; 85025

== ENCOUNTER → 2020-07-11 10:07 | Outpatient (CLI) | payer MEDICARE, OTHER, SELFPAY ==
[2020-06-23 04:49] VITALS: BMI 32.3
[2020-07-11 10:14] VITALS: BP 154/79; PULSE 90; RESP 16; TEMP 36.3; O2SAT 96; BMI 29.7
[2020-07-11] MEDS: 0.9% NaCl Peripheral Flush Adult/Peds IV (10:38)
[2020-07-11 13:46] VITALS: BP 132/84; PULSE 75; RESP 16; TEMP 36.1; O2SAT 97
== END ==
PROVIDERS: PCP Family Medicine; Referring Provider Internal Medicine Rheumatology; Visit Provider Internal Medicine Rheumatology
DX: M06.09 Rheumatoid arthritis without rheumatoid factor, multiple sites (principal)
CPT/HCPCS: 36415; 80053; 85025; 96413; 96415; J7050; A4216; Q5103

== ENCOUNTER → 2020-08-29 07:56 | Outpatient (CLI) | payer MEDICARE, OTHER, SELFPAY ==
[2020-06-23 04:49] VITALS: BMI 32.3
[2020-08-10 15:23] VITALS: BMI 30.4
[2020-08-29 08:08] VITALS: BP 155/75; PULSE 79; RESP 18; TEMP 36.6; O2SAT 93; BMI 33.5
[2020-08-29] MEDS: 0.9% NaCl IVPB Med Flush (250 mL) 15 ML IV (08:20)
[2020-08-29] MEDS: 0.9% NaCl Peripheral Flush Adult/Peds IV (08:21)
[2020-08-29 12:02] VITALS: BP 148/74; PULSE 64; RESP 16; TEMP 36.4; O2SAT 100
== END ==
PROVIDERS: PCP Family Medicine; Referring Provider Internal Medicine Rheumatology; Visit Provider Internal Medicine Rheumatology
DX: M06.09 Rheumatoid arthritis without rheumatoid factor, multiple sites (principal)
CPT/HCPCS: 96413; 96415; J7050; A4216; Q5103

== ENCOUNTER → 2020-09-16 08:42 | Outpatient (CLI) | payer MEDICARE, OTHER, SELFPAY ==
[2020-08-29 08:08] VITALS: BMI 33.5
[2020-09-16 11:01] LABS: Anion Gap 4 (5-15); BUN 23 mg/dL (7-18); BUN/Creat Ratio 13.5 RATIO (10-20); Calcium,Total 9.2 mg/dL (8.5-10.1); Chloride 109 mmol/L (98-107); Creatinine, Serum 1.71 mg/dL (0.70-1.30); EST Glomerular Filtration Rate 42 mL/min (>60); Est Glom Filt Rate - Afr Amer 50 mL/min (>60); Glucose 100 mg/dL (74-106); Potassium 3.6 mmol/L (3.5-5.1); Sodium Level 141 mmol/L (136-145)
== END ==
PROVIDERS: PCP Family Medicine; Referring Provider Family Medicine; Visit Provider Family Medicine
DX: E11.8 Type 2 diabetes mellitus with unspecified complications (principal)
CPT/HCPCS: 36415; 80048

== ENCOUNTER → 2020-10-04 08:15 | Outpatient (CLI) | payer MEDICARE, SELFPAY ==
[2020-08-29 08:08] VITALS: BMI 33.5
[2020-10-04 10:17] LABS: Absolute Lymphocyte Count 2.63 X10^3/uL (0.83-4.51); Absolute Neutrophil Count 3.4 X10^3/uL (2.0-7.7); Basophil# 0.03 X10^3/uL; Basophil% 0.4 % (0-1); Eosinophil# 0.26 X10^3/uL; Eosinophils% 3.7 % (0-5); Hematocrit 38.4 % (40-54); Hemoglobin 11.8 g/dL (13.0-16.5); Lymphocyte # 2.63 X10^3/ul (4.0); Lymphocyte % 36.9 % (19-41); Mean Corp Hgb Conc 30.7 g/dL (32-36); Mean Corpuscular Hgb 27.8 pg (27.0-32.0); Mean Corpuscular Volume 90.4 fL (80-94); Mean Platelet Vol. 11.4 fl (6.2-12.0); Monocyte# 0.79 X10^3/uL; Monocyte% 11.1 % (0-10); NRBC Flagged by Analyzer 0 % (0-5); Neutrophil % 47.8 % (47-70); Platelet Count 260 K/mm3 (150-450); RBC Distribution Width CV 15.6 % (11.6-14.6); RBC Distribution Width SD 51.8 fl (35.1-43.9); Red Blood Count 4.25 M/mm3 (4.6-6.2); White Blood Count 7.1 K/mm3 (4.4-11.0)
[2020-10-04 10:31] LABS: ALB/GLOB Ratio 0.9 RATIO (0.9-2.4); AST(SGOT) 29 U/L (15-37); Alanine Aminotransfer ALT/SGPT 28 U/L (16-61); Albumin, Serum 3.8 g/dL (3.2-5.0); Alkaline Phosphatase 62 U/L (45-117); Anion Gap 5 (5-15); BUN 17 mg/dL (7-18); BUN/Creat Ratio 9.7 RATIO (10-20); Chloride 106 mmol/L (98-107); Creatinine, Serum 1.75 mg/dL (0.70-1.30); EST Glomerular Filtration Rate 41 mL/min (>60); Est Glom Filt Rate - Afr Amer 49 mL/min (>60); Globulin 4.2 g/dL (2.2-4.2); Glucose 94 mg/dL (74-106); Potassium 3.7 mmol/L (3.5-5.1); Sodium Level 142 mmol/L (136-145)
== END ==
PROVIDERS: PCP Family Medicine; Referring Provider Internal Medicine Rheumatology; Visit Provider Internal Medicine Rheumatology
DX: M06.09 Rheumatoid arthritis without rheumatoid factor, multiple sites (principal); M15.9 Polyosteoarthritis, unspecified; K21.00 Gastro-esophageal reflux disease with esophagitis, without bleeding; M47.897 Other spondylosis, lumbosacral region; M51.37 Other intervertebral disc degeneration, lumbosacral region; K51.80 Other ulcerative colitis without complications; Z79.899 Other long term (current) drug therapy
CPT/HCPCS: 36415; 80053; 85025

== ENCOUNTER → 2020-10-10 07:48 | Outpatient (CLI) | payer MEDICARE, SELFPAY ==
[2020-08-29 08:08] VITALS: BMI 33.5
[2020-10-12 16:09] LABS: QNTFERON TB Mitogen Value > 10.00 IU/mL (.); QNTFERON TB Nil Value 0.12 IU/mL (.); QNTFERON TB1+ Ag Value 0.04 IU/mL (.); QNTFERON TB2+ Ag Value 0.03 IU/mL (.)
[2020-10-12 20:04] LABS: QNTIFERON TB Positive Criteria Negative (Negative)
== END ==
PROVIDERS: PCP Family Medicine; Referring Provider Internal Medicine Rheumatology; Visit Provider Internal Medicine Rheumatology
DX: M06.09 Rheumatoid arthritis without rheumatoid factor, multiple sites (principal); M15.9 Polyosteoarthritis, unspecified; K21.00 Gastro-esophageal reflux disease with esophagitis, without bleeding; M47.897 Other spondylosis, lumbosacral region; M51.37 Other intervertebral disc degeneration, lumbosacral region; K51.80 Other ulcerative colitis without complications; I48.0 Paroxysmal atrial fibrillation; I12.9 Hypertensive chronic kidney disease with stage 1 through stage 4 chronic kidney disease, or unspecified chronic kidney disease; E11.22 Type 2 diabetes mellitus with diabetic chronic kidney disease; N18.9 Chronic kidney disease, unspecified; E78.5 Hyperlipidemia, unspecified; K21.9 Gastro-esophageal reflux disease without esophagitis; I27.20 Pulmonary hypertension, unspecified; G47.33 Obstructive sleep apnea (adult) (pediatric); K57.90 Diverticulosis of intestine, part unspecified, without perforation or abscess without bleeding; Z87.442 Personal history of urinary calculi; Z79.899 Other long term (current) drug therapy
CPT/HCPCS: 36415; 86480

== ENCOUNTER → 2020-10-21 09:29 | Outpatient (CLI) | payer MEDICARE, SELFPAY ==
[2020-08-10 15:23] VITALS: BMI 30.4
[2020-08-29 08:08] VITALS: BMI 33.5
[2020-10-21] MEDS: Loratadine 10 MG Tablet PO (08:00)
[2020-10-21] MEDS: Acetaminophen 325 MG Tablet 650 MG PO (08:00)
[2020-10-21] MEDS: 0.9% NaCl Peripheral Flush Adult/Peds IV (09:51)
[2020-10-21 09:59] VITALS: BP 152/77; PULSE 73; RESP 16; TEMP 36.1; O2SAT 96; BMI 32.7
== END ==
PROVIDERS: PCP Family Medicine; Referring Provider Internal Medicine Rheumatology; Visit Provider Internal Medicine Rheumatology
DX: M06.09 Rheumatoid arthritis without rheumatoid factor, multiple sites (principal)
CPT/HCPCS: 96413; 96415; J7050; A4216; Q5103

== ENCOUNTER → 2020-12-01 09:58 | Outpatient (CLI) | payer MEDICARE, SELFPAY ==
[2020-11-18 09:31] VITALS: BMI 34.2
--- NOTE | 2020-12-01 10:01 | US_ITS ---
STUDY: RENAL ULTRASOUND - COMPLETE REASON FOR EXAM: Male, 75 years old. CKD STAGE 3B/ -- ckd TECHNIQUE: Ultrasound evaluation of the kidneys was performed with real-time and static rojo-scale imaging. COMPARISON: None. FINDINGS: RIGHT KIDNEY: Normal location of the right kidney, which is normal in size. The right kidney measures 10.7 cm x 5.17 x 4.7 cm. There is a normal cortex of the right kidney. The renal cortex measures 1.3 cm. 2 cysts are seen. The larger measures 2.3 cm x 2.3 cm x 1.6 cm. There are no right renal calculi. There is no right hydronephrosis. DISTAL RIGHT URETER: There is non-visualization of the distal right ureter. There is no demonstrated right ureterovesical junction calculus. There is a visualized right ureteral jet. LEFT KIDNEY: Normal location of the left kidney, which is normal in size. The left kidney measures 11.4 cm x 5.8 cm x 5.7 cm. There is a normal cortex of the left kidney. The renal cortex measures 1.5 cm. There is no left renal mass or cyst. There are no left renal calculi. There is no left hydronephrosis. DISTAL LEFT URETER: There is non-visualization of the distal left ureter. There is no demonstrated left ureterovesical junction calculus. There is a visualized left ureteral jet. BLADDER: The distended urinary bladder has a volume of 173 ml. There is a normal wall thickness of the distended urinary bladder. There is no demonstrated mass within the urinary bladder. There are no demonstrated bladder calculi. US/Kidney and Bladder IMPRESSION: Right renal cysts. Electronically Signed: Shad Macias MD at 14:53 EST , Service support ,
== END ==
PROVIDERS: PCP Family Medicine; Referring Provider Internal Medicine Nephrology; Visit Provider Internal Medicine Nephrology
DX: N18.32 Chronic kidney disease, stage 3b (principal)
CPT/HCPCS: 76770

== ENCOUNTER → 2020-12-13 08:13 | Outpatient (CLI) | payer MEDICARE, SELFPAY ==
[2020-11-18 09:31] VITALS: BMI 34.2
[2020-12-13 09:02] LABS: 24 Hour Urine Protein 626.4 mg/24HR (<150 MG/24HR); 24HR. UA Prot. Total Volume 2700 mL; Urine Protein (24 Hour) 23.2 mg/dL (<11.9)
[2020-12-13 09:32] LABS: Hematocrit 41.8 % (40-54); Hemoglobin 13.2 g/dL (13.0-16.5); Mean Corp Hgb Conc 31.6 g/dL (32-36); Mean Corpuscular Hgb 28.6 pg (27.0-32.0); Mean Corpuscular Volume 90.7 fL (80-94); Mean Platelet Vol. 11.3 fl (6.2-12.0); Platelet Count 227 K/mm3 (150-450); RBC Distribution Width SD 56.9 fl (35.1-43.9); Red Blood Count 4.61 M/mm3 (4.6-6.2); White Blood Count 6.9 K/mm3 (4.4-11.0)
[2020-12-13 09:58] LABS: PTHIN 66.2 pg/mL (18.4-80.1)
[2020-12-13 10:02] LABS: Vitamin D,25 Hydroxy 36.2 ng/mL
[2020-12-13 10:18] LABS: Albumin, Serum 3.8 g/dL (3.2-5.0); BUN 17 mg/dL (7-18); BUN/Creat Ratio 9.7 RATIO (10-20); Calcium,Total 8.8 mg/dL (8.5-10.1); Chloride 106 mmol/L (98-107); Creatinine, Serum 1.76 mg/dL (0.70-1.30); EST Glomerular Filtration Rate 40 mL/min (>60); Est Glom Filt Rate - Afr Amer 49 mL/min (>60); Ferritin 28 ng/mL (26-388); Glucose 202 mg/dL (74-106); Iron 122 ug/dL (65-175); Iron Binding Capacity,Total 419 ug/dL (250-450); Potassium 3.7 mmol/L (3.5-5.1); Sodium Level 139 mmol/L (136-145)
[2020-12-13 11:21] LABS: Creat.Clear Total Volume 2700 mL; Creatinine Clearance 67 ml/min (100-200); Creatinine Serum Creat 1.8 mg/dL (0.8-1.3); Creatinine Urine 62.7 mg/dL (NO RANGE EST.); EST Glomerular Filtration Rate 40 mL/min (>60); Est Glom Filt Rate - Afr Amer 49 mL/min (>60)
== END ==
LOC: LAB.FUTURE 08:15 → LAB 08:16
PROVIDERS: PCP Family Medicine; Referring Provider Internal Medicine Nephrology; Visit Provider Internal Medicine Nephrology
DX: N18.32 Chronic kidney disease, stage 3b (principal); D64.9 Anemia, unspecified; M06.09 Rheumatoid arthritis without rheumatoid factor, multiple sites; K51.80 Other ulcerative colitis without complications
CPT/HCPCS: 36415; 80069; 81050; 82306; 82575; 82728; 83540; 83550; 83970; 84156; 85027

== ENCOUNTER → 2020-12-15 08:28 | Outpatient (CLI) | payer MEDICARE, SELFPAY ==
[2020-08-29 08:08] VITALS: BMI 33.5
[2020-11-18 09:31] VITALS: BMI 34.2
[2020-12-15 08:37] VITALS: BP 175/89; PULSE 86; RESP 16; TEMP 36.9; O2SAT 95; BMI 34.2
== END ==
PROVIDERS: PCP Family Medicine; Referring Provider Internal Medicine Rheumatology; Visit Provider Internal Medicine Rheumatology
DX: M06.09 Rheumatoid arthritis without rheumatoid factor, multiple sites (principal)
CPT/HCPCS: 96413; 96415 ×2; J7050; A4216; Q5103

== ENCOUNTER → 2021-02-03 09:24 | Outpatient (CLI) | payer MEDICARE, SELFPAY ==
[2020-11-18 09:31] VITALS: BMI 34.2
[2020-12-15 08:37] VITALS: BMI 34.2
[2021-02-03 12:02] VITALS: BP 141/73; PULSE 67; RESP 16; TEMP 35.8; O2SAT 94
== END ==
PROVIDERS: PCP Family Medicine; Referring Provider Internal Medicine Rheumatology; Visit Provider Internal Medicine Rheumatology
DX: M06.09 Rheumatoid arthritis without rheumatoid factor, multiple sites (principal)
CPT/HCPCS: 96413; 96415; J7050; A4216; Q5103

== ENCOUNTER → 2021-02-23 13:00 | Outpatient (CLI) | payer MEDICARE, SELFPAY ==
[2021-02-09 10:52] VITALS: BMI 34.0
== END ==
PROVIDERS: PCP Family Medicine; Visit Provider Internal Medicine Critical Care Medicine
DX: G47.33 Obstructive sleep apnea (adult) (pediatric) (principal)
CPT/HCPCS: 98960; G0463

== ENCOUNTER → 2021-03-23 20:04 | Outpatient (CLI) | payer MEDICARE, SELFPAY ==
[2021-02-09 10:52] VITALS: BMI 34.0
== END ==
PROVIDERS: PCP Family Medicine; Referring Provider Nurse Practitioner Acute Care; Visit Provider Nurse Practitioner Acute Care
DX: G47.33 Obstructive sleep apnea (adult) (pediatric) (principal)
CPT/HCPCS: 95811

== ENCOUNTER → 2021-03-24 09:25 | Outpatient (CLI) | payer MEDICARE, SELFPAY ==
[2020-12-15 08:37] VITALS: BMI 34.2
[2021-02-09 10:52] VITALS: BMI 34.0
[2021-03-24 09:30] VITALS: BP 147/79; PULSE 77; RESP 16; TEMP 36.8; O2SAT 94
[2021-03-24] MEDS: 0.9% NaCl Peripheral Flush Adult/Peds IV (09:39)
[2021-03-24 13:02] VITALS: BP 149/73; PULSE 72; RESP 16; TEMP 36.2; O2SAT 96
== END ==
PROVIDERS: PCP Family Medicine; Referring Provider Internal Medicine Rheumatology; Visit Provider Internal Medicine Rheumatology
DX: M06.09 Rheumatoid arthritis without rheumatoid factor, multiple sites (principal)
CPT/HCPCS: 96413; 96415; J7050; A4216; Q5103

== ENCOUNTER → 2021-03-29 09:45 | Outpatient (CLI) | payer MEDICARE, SELFPAY ==
[2021-02-09 10:52] VITALS: BMI 34.0
[2021-03-29 12:19] LABS: Absolute Lymphocyte Count 2.31 X10^3/uL (0.83-4.51); Absolute Neutrophil Count 3.8 X10^3/uL (2.0-7.7); Basophil# 0.03 X10^3/uL; Basophil% 0.4 % (0-1); Eosinophil# 0.27 X10^3/uL; Eosinophils% 3.9 % (0-5); Hematocrit 41.1 % (40-54); Hemoglobin 13.4 g/dL (13.0-16.5); Lymphocyte # 2.31 X10^3/ul (0.83-4.51); Lymphocyte % 33.1 % (19-41); Mean Corp Hgb Conc 32.6 g/dL (32-36); Mean Corpuscular Hgb 30.3 pg (27.0-32.0); Mean Platelet Vol. 11.8 fl (6.2-12.0); Monocyte# 0.54 X10^3/uL; Monocyte% 7.7 % (0-10); NRBC Flagged by Analyzer 0 % (0-5); Neutrophil # 3.81 X10^3/uL (2.7-7.7); Neutrophil % 54.6 % (47-70); Platelet Count 215 K/mm3 (150-450); RBC Distribution Width CV 15.6 % (11.6-14.6); RBC Distribution Width SD 53.1 fl (35.1-43.9); Red Blood Count 4.42 M/mm3 (4.6-6.2)
[2021-03-29 12:41] LABS: ALB/GLOB Ratio 0.9 RATIO (0.9-2.4); AST(SGOT) 35 U/L (15-37); Alanine Aminotransfer ALT/SGPT 36 U/L (16-61); Albumin, Serum 3.8 g/dL (3.2-5.0); Alkaline Phosphatase 65 U/L (45-117); Anion Gap 6 (5-15); BUN 20 mg/dL (7-18); Calcium,Total 8.4 mg/dL (8.5-10.1); Chloride 107 mmol/L (98-107); Creatinine, Serum 1.82 mg/dL (0.70-1.30); EST Glomerular Filtration Rate 39 mL/min (>60); Est Glom Filt Rate - Afr Amer 47 mL/min (>60); Globulin 4.2 g/dL (2.2-4.2); Glucose 212 mg/dL (74-106); Potassium 3.7 mmol/L (3.5-5.1); Sodium Level 139 mmol/L (136-145)
== END ==
PROVIDERS: PCP Family Medicine; Referring Provider Internal Medicine Rheumatology; Visit Provider Internal Medicine Rheumatology
DX: M06.09 Rheumatoid arthritis without rheumatoid factor, multiple sites (principal); Z79.899 Other long term (current) drug therapy; K21.00 Gastro-esophageal reflux disease with esophagitis, without bleeding; M47.897 Other spondylosis, lumbosacral region; M51.37 Other intervertebral disc degeneration, lumbosacral region; I48.0 Paroxysmal atrial fibrillation; I12.9 Hypertensive chronic kidney disease with stage 1 through stage 4 chronic kidney disease, or unspecified chronic kidney disease; N18.9 Chronic kidney disease, unspecified; E78.5 Hyperlipidemia, unspecified; E11.9 Type 2 diabetes mellitus without complications; K21.9 Gastro-esophageal reflux disease without esophagitis; I27.20 Pulmonary hypertension, unspecified; G47.33 Obstructive sleep apnea (adult) (pediatric); K57.90 Diverticulosis of intestine, part unspecified, without perforation or abscess without bleeding; Z87.442 Personal history of urinary calculi
CPT/HCPCS: 36415; 80053; 85025

== ENCOUNTER → 2021-04-11 13:00 | Outpatient (CLI) | payer MEDICARE, SELFPAY ==
[2021-02-09 10:52] VITALS: BMI 34.0
== END ==
PROVIDERS: PCP Family Medicine; Referring Provider Nurse Practitioner Acute Care; Visit Provider Nurse Practitioner Acute Care
DX: Z46.89 Encounter for fitting and adjustment of other specified devices (principal)

== ENCOUNTER 2021-04-12 10:40 | Emergency (ER) | payer MEDICARE, SELFPAY ==
[2021-02-09 10:52] VITALS: BMI 34.0
[2021-04-12 10:41] VITALS: BP 153/80; PULSE 85; RESP 18; TEMP 36.2; O2SAT 91; BMI 34.6
[2021-04-12 10:43] VITALS: BP 153/80; PULSE 85; RESP 18; TEMP 36.2; O2SAT 91
--- NOTE | 2021-04-12 11:05 | EKG12_ITS ---
Test Reason : SOB Blood Pressure : / mmHG Vent. Rate : 085 BPM Atrial Rate : 085 BPM P-R Int : 180 ms QRS Dur : 098 ms QT Int : 422 ms P-R-T Axes : 056 -45 063 degrees QTc Int : 502 ms Sinus rhythm with frequent Premature ventricular complexes Left axis deviation Anteroseptal infarct , age undetermined Prolonged QT Abnormal ECG Confirmed by LIBIA LAUGHLIN, LETY ([id number]), map editor CRISTI ROOT ([id number]) on 04/14/2021 9:22:41 AM Referred By: NGA Confirmed By:MARTI REZA MD
--- NOTE | 2021-04-12 11:06 | EDS_ITS ---
HPI History of Present Illness Chief Complaint: Shortness of Breath Narrative Narrative: Cough that is occasionally productive of nonbloody white sputum, dyspnea for about the past week or so, worse in the past night and this morning. He has nebulizer machine and inhalers at home that are not really helping now. He denies any fever chills or any other new symptoms. He saw his doctor and was prescribed Levaquin, prednisone, he is in the middle of a taper and on day #6 just after the burst. Patient states he had Covid last year and it has given him breathing problems ever since. He is anticoagulated for atrial fibrillation, thinks he had some RVR last night but it does not feel like that now. He denies any chest discomfort, syncope, changes in his chronic leg swelling. He has had Covid vaccination more than 2 weeks ago. No known exposures to Covid that he can remember. No recent travel out of the area. [facility] Medical History Acute respiratory insufficiency Asthma Asymptomatic hypertensive urgency Atrial fibrillation with RVR Bronchitis Colitis Concussion Covid-19 COVID-19 virus infection Dementia Diverticula of colon DM2 (diabetes mellitus, type 2) Essential hypertension Hyperlipidemia Hypertensive urgency Inflammatory bowel disease Intractable pain Kidney stones SUPA (obstructive sleep apnea) Paroxysmal atrial fibrillation Pulmonary hypertension Renal colic on left side Rheumatoid aortitis Rhinovirus Sepsis Severe acute respiratory syndrome coronavirus 2 (SARS-CoV-2) infection ruled out Severe sepsis Ureterolithiasis Home Medications infliximab-dyyb 100 mg IV .COMPLEX 02/18/17 [History Last Taken 08/04/18] esomeprazole magnesium 20 mg PO DAILY 04/15/17 [History Last Taken 06/22/20] loratadine 10 mg PO QHS 04/15/17 [History Last Taken 06/22/20] glimepiride 2 mg PO DAILY 01/22/18 [History Last Taken 06/22/20] ndpwpdhr-qea-IY-lycopen-lutein 1 ea PO DAILY 09/17/18 [History Last Taken 06/22/20] calcium carbonate-vitamin D3 600 mg (1,500 mg)-800 unit tablet 1 tab PO DAILY 06/02/19 [History Last Taken 06/22/20] duloxetine 60 mg capsule,delayed release 60 mg PO DAILY 09/03/19 [History Last Taken 06/22/20] gabapentin 600 mg tablet 600 mg PO BID tab 06/02/19 [History Last Taken 06/22/20] ipratropium bromide 15 ml NS PRN PRN 01/11/20 [History Last Taken 06/22/20] diphenhydramine HCl 25 mg PO BID PRN PRN 03/24/20 [History Last Taken Unknown] carvedilol 25 mg tablet 25 mg PO BID 05/25/20 [History Last Taken 06/22/20] isosorbide mononitrate 60 mg tablet,extended release 24 hr 60 mg PO BID #60 tab 05/25/20 [Rx Last Taken 06/22/20] phenol-glycerin 30 ml MM Q2H PRN PRN #1 bottle 06/24/20 [Rx Last Taken Unknown] apixaban 5 mg tablet 5 mg PO BID #180 tab 11/11/20 [Rx Last Taken Unknown] amlodipine 10 mg tablet 10 mg PO DAILY 11/25/20 [History Last Taken Unknown] rosuvastatin 20 mg tablet 20 mg PO DAILY #90 tab 11/28/20 [Rx Last Taken Unknown] potassium chloride 10 mEq tablet,extended release(part/cryst) 10 meq PO DAILY #30 tab 12/06/20 [Rx Last Taken Unknown] furosemide 40 mg tablet 20 mg PO DAILY #90 tablet 12/27/20 [Rx Last Taken Unknown] amiodarone 200 mg tablet 100 mg PO DAILY #45 tab 02/08/21 [Rx Last Taken Unknown] balsalazide 750 mg capsule 2,250 mg PO BID cap 02/08/21 [History Last Taken Unknown] hydralazine 100 mg tablet 100 mg PO BID tab 02/08/21 [History Last Taken Unknown] lisinopril 30 mg tablet 30 mg PO BID tab 02/08/21 [History Last Taken Unknown] oxymetazoline 0.05 % nasal spray 2 spray INTRANASAL Q12H PRN 02/09/21 [History Last Taken Unknown] buspirone 7.5 mg PO BID 04/12/21 [History Last Taken Unknown] levofloxacin 500 mg PO DAILY 04/12/21 [History Last Taken Unknown] prednisone 40 mg PO DAILY 04/12/21 [History Last Taken Unknown] Allergy/AdvReac Type Severity Reaction Status Date / Time aspirin Allergy Severe Mouth Verified 04/12/21 10:41 swelling donepezil [From Aricept] AdvReac Severe Swelling Verified 04/12/21 10:41 minoxidil AdvReac Severe swelling Verified 04/12/21 10:41 morphine AdvReac Severe UNABLE TO Verified 04/12/21 10:41 URINATE Family History Mother Heart disease Diabetes Father Heart disease Lung disease Brother Heart disease Lung disease Cancer prostate, pancreatic Sister Diabetes Cancer uterine Surgical History Cervical vertebral fusion History of back surgery History of bilateral knee replacement History of removal of cyst Social History Smoking Status: Former smoker how long ago did patient quit smokin, 2ppd second hand exposure: Yes ROS ROS ED Constitutional Constitutional ED: Denies chills or fever(s) Eyes Eyes: Denies change in vision or diplopia ENT ENT ED: Denies ear pain, rhinorrhea or sore throat Cardiovascular Cardiovascular: Reports leg edema; Denies chest pain or palpitations Respiratory/Chest Respiratory/Chest: Reports cough, dyspnea and sputum; Denies dyspnea on exertion Gastrointestinal Gastrointestinal: Denies abdominal pain, diarrhea, nausea or vomiting Genitourinary Genitourinary ED: Denies dysuria or hematuria Musculoskeletal Musculoskeletal: Denies back pain or neck pain Integumentary Denies abscess or rash Neurologic Neurologic: Reports headache(s); Denies paresthesias or weakness Psychiatric Psychiatric: Denies anxiety or suicidal thoughts EXAM Physical Exam Const Vital Signs: 04/12/21 10:41 04/12/21 10:43 04/12/21 11:31 Temperature 97.2 F L 97.2 F L Temperature Source Temporal Temporal Pulse Rate 85 85 88 Respiratory Rate 18 18 18 Respiratory Effort Respiratory Depth Respiratory Pattern Normal Blood Pressure 153/80 H 153/80 H Blood Pressure Mean 104 104 Pulse Ox 91 91 Oxygen Delivery Method Room Air Room Air 04/12/21 11:53 Temperature Temperature Source Pulse Rate Respiratory Rate Respiratory Effort Normal Respiratory Depth Normal Respiratory Pattern Normal Blood Pressure Blood Pressure Mean Pulse Ox Oxygen Delivery Method Room Air Positive well nourished and well developed General Appearance ED: well developed and NAD HEENT Reports moist mucous membranes normocephalic and atraumatic Eyes PERRL and EOMs intact bilaterally Neck full ROM, no lymphadenopathy and supple Resp normal respiratory effort Resp Narrative: Frequent bronchospasm. He has upper airway sounds that sound transmitted throughout, he is unable to take a deep breath without bronchospasm, all of the significantly limiting the pulmonary exam. He has equal breath sounds bilaterally and trachea is midline. He is able to speak in complete sentences when he is not coughing. Cardio regular rate, regular rhythm and no murmurs GI non-tender and non-distended Auscultation: normoactive bowel sounds Palpation: soft Back/Spine no CVA tenderness General Back: other FROM Extremity normal to inspection Extremity Narrative: 2+ bilateral lower extremity symmetric edema without signs of stasis bilaterally to the knees, no calf tenderness. General Extremety ED: Yes edema; Negative for pulses abnormal or tenderness General Extremity: edema; Negative for pulses abnormal Neuro oriented x3, CN's II-XII intact bilaterally and no sensory deficits noted Sensorium / Orientation: awake and alert Motor Exam: strength 5/5 throughout Skin no rashes or lesions noted and no wounds MDM MDM MDM Narrative Medical decision making narrative: Patient has had symptoms of bronchitis for the past week or so, and now is feeling a little worse having trouble coughing up phlegm. He was given an albuterol/Atrovent aerosol in addition to having respiratory do a treatment with a flutter valve to see if that would help break stuff up for him. He states he did not have a lot of improvement, however when he is not coughing, he is breathing fine and speaking in full sentences. He was very pleasant. I explained to him that the breathing treatments would help his bronchospasm which I think is the main reason he is dyspnea, but it would not be expecting to act as an expectorant. He understood this. His work-up is negative here. This includes cardiac testing and a BNP as below. His chest x- ray my interpretation 1 view shows nothing acute, radiology agrees. He is comfortable going home. At baseline he is 91% on room air here and he has ma intained saturations above 90%, but I was concerned about when he ambulated. I discussed an expectorant such as guaifenesin, and he was amenable to that, so I offered him a dose and ordered it. I asked nurse to walk him with pulse oximetry to see if he desats or not. 2 different nurses attempted to do this, and for some reason the patient became very nasty and inpatient and demanded to be let go immediately, telling them that he has oxygen at home and that this is pointless, I was not aware prior to that that he had oxygen at home. I got the patient's discharge information ready, but he left prior to discharge and getting the guaifenesin. Lab Data Attestation: I reviewed the patient's lab results. Labs: Laboratory Results - last 24 hr 04/12/21 04/12/21 04/12/21 11:45 11:45 11:45 WBC 10.3 RBC 4.35 L Hgb 13.0 Hct 39.7 L MCV 91.3 MCH 29.9 MCHC 32.7 RDW Std Deviation 52.4 H RDW Coeff of Azeem 15.7 H Plt Count 213 MPV 10.6 Immature Gran % (Auto) 1.200 H Neut % (Auto) 77.1 H Lymph % (Auto) 15.3 L [place] % (Auto) 6.1 Eos % (Auto) 0.1 Baso % (Auto) 0.2 Absolute Neuts (auto) 8.0 H Absolute Lymphs (auto) 1.58 Nucleated RBC % 0 Sodium 138 Potassium 4.0 Chloride 102 Carbon Dioxide 27.0 Anion Gap 9 BUN 27 H Creatinine 1.68 H Estim Creat Clear Calc 34.97 Est GFR (MDRD) Af Amer 51 L Est GFR (MDRD) Non-Af 42 L BUN/Creatinine Ratio 16.1 Glucose 234 H Calcium 8.4 L Troponin I High Sens 13.0 B-Natriuretic Peptide 54.4 Radiography Chest X-Ray - ED: 1 View, Read by ED Physician, No Acute Disease and Chronic Changes Diagnostic Testing: Radiology Impression Chest X-Ray 04/12/21 11:50 IMPRESSION: Prominent soft tissue in the right paratracheal region. This is unchanged. Electronically Signed: Shad Macias MD at 12:06 EDT , Service support , Discharge Plan Triage Chief Complaint: Shortness of Breath ED Provider: Milton Mckinley Dx/Rx/DC Orders Clinical Impression: Acute bronchitis with bronchospasm Instructions: Acute Bronchitis Prescriptions: No Action duloxetine [Cymbalta] 60 mg capsule,delayed release(DR/EC) 60 mg PO DAILY RF: 0 calcium carbonate-vitamin D3 [Caltrate with Vitamin D3] 600 mg(1,500mg) -800 unit tablet 1 tab PO DAILY RF: 0 carvedilol 25 mg tablet 25 mg PO BID RF: 0 hydralazine 100 mg tablet 100 mg PO BID RF: 0 lisinopril 30 mg tablet 30 mg PO BID RF: 0 balsalazide 750 mg capsule 2,250 mg PO BID RF: 0 amiodarone 200 mg tablet 100 mg PO DAILY Qty: 45 RF: 4 oxymetazoline [Afrin (oxymetazoline)] 0.05 % spray,non-aerosol 2 spray intranasal Q12H PRN (Reason: Nasal Congestion) RF: 0 gabapentin 600 mg tablet 600 mg PO BID RF: 0 infliximab-dyyb 100 MG/10 ML recon soln 100 mg IV .COMPLEX RF: 0 loratadine 10 MG tablet 10 mg PO QHS RF: 0 esomeprazole magnesium 22.3 MG capsule,delayed release(DR/EC) 20 mg PO DAILY RF: 0 glimepiride 2 MG tablet 2 mg PO DAILY RF: 0 vakzjafj-mzj-MV-lycopen-lutein 1 EACH tablet 1 ea PO DAILY RF: 0 ipratropium bromide 15 ML spray,non-aerosol 15 ml NS PRN PRN (Reason: Congestion) RF: 0 diphenhydramine HCl 25 MG capsule 25 mg PO BID PRN PRN (Reason: reaction) RF: 0 phenol-glycerin 30 ML spray,non-aerosol 30 ml MM Q2H PRN PRN (Reason: Sore Throat) Qty: 1 RF: 0 prednisone 20 mg tablet 40 mg PO DAILY RF: 0 buspirone 7.5 mg tablet 7.5 mg PO BID RF: 0 levofloxacin 500 mg tablet 500 mg PO DAILY RF: 0 isosorbide mononitrate 60 mg tablet extended release 24 hr 60 mg PO BID Qty: 60 RF: 11 apixaban 5 mg tablet 5 mg PO BID Qty: 180 RF: 3 amlodipine 10 mg tablet 10 mg PO DAILY RF: 0 rosuvastatin 20 mg tablet 20 mg PO DAILY Qty: 90 RF: 3 potassium chloride 10 mEq tablet,ER particles/crystals 10 meq PO DAILY Qty: 30 RF: 11 furosemide 40 mg tablet 20 mg PO DAILY Qty: 90 RF: 3 Primary Care Provider: Jayme Yang Referrals: Jayme Yang MD [Primary Care Provider] - 3-5 Days if not improving Disposition Disposition: Home, Self Care
[2021-04-12] MEDS: Ipratropium/Albuterol Sulfate 3 ML AMPUL.NEB INHALATION (11:27)
[2021-04-12] MEDS: Albuterol 2.5 MG/3 ML VIAL.NEB. INHALATION (11:27)
[2021-04-12 11:31] VITALS: PULSE 88; RESP 18
--- NOTE | 2021-04-12 11:50 | RAD_ITS ---
STUDY: X-RAY CHEST REASON FOR EXAM: Male, 75 years old. Cough, sob TECHNIQUE: Single AP portable view of the chest. COMPARISON: Comparison is made with prior study 06/23/2020 FINDINGS: EKG electrodes are seen. Azygos lobe. Stable soft tissue density in the right paratracheal region. There is no demonstrated pleural abnormality. Normal size heart. Normal mediastinum and corina. Normal visualized pulmonary arteries. Normal visualized aortic arch and descending thoracic aorta. Normal visualized thoracic spine. Prior laminectomy and fusion in the lower cervical spine. There is no demonstrated abnormality of the visualized soft tissue structures of the upper abdomen. RAD/Chest 1 View (Portable) IMPRESSION: Prominent soft tissue in the right paratracheal region. This is unchanged. Electronically Signed: Shad Macias MD at 12:06 EDT , Service support ,
[2021-04-12 11:53] VITALS: O2SAT 94
[2021-04-12 12:09] LABS: Absolute Lymphocyte Count 1.58 X10^3/uL (0.83-4.51); Basophil# 0.02 X10^3/uL; Basophil% 0.2 % (0-1); Eosinophil# 0.01 X10^3/uL; Eosinophils% 0.1 % (0-5); Hematocrit 39.7 % (40-54); Lymphocyte # 1.58 X10^3/ul (0.83-4.51); Lymphocyte % 15.3 % (19-41); Mean Corp Hgb Conc 32.7 g/dL (32-36); Mean Corpuscular Hgb 29.9 pg (27.0-32.0); Mean Corpuscular Volume 91.3 fL (80-94); Mean Platelet Vol. 10.6 fl (6.2-12.0); Monocyte# 0.63 X10^3/uL; Monocyte% 6.1 % (0-10); NRBC Flagged by Analyzer 0 % (0-5); Neutrophil # 7.98 X10^3/uL (2.7-7.7); Neutrophil % 77.1 % (47-70); Platelet Count 213 K/mm3 (150-450); RBC Distribution Width CV 15.7 % (11.6-14.6); RBC Distribution Width SD 52.4 fl (35.1-43.9); Red Blood Count 4.35 M/mm3 (4.6-6.2); White Blood Count 10.3 K/mm3 (4.4-11.0)
[2021-04-12 12:25] LABS: Anion Gap 9 (5-15); BUN 27 mg/dL (7-18); BUN/Creat Ratio 16.1 RATIO (10-20); Calcium,Total 8.4 mg/dL (8.5-10.1); Chloride 102 mmol/L (98-107); Creatinine, Serum 1.68 mg/dL (0.70-1.30); EST Glomerular Filtration Rate 42 mL/min (>60); Est Glom Filt Rate - Afr Amer 51 mL/min (>60); Estimated Creatinine Clearance 34.97 ml/min; Glucose 234 mg/dL (74-106); Sodium Level 138 mmol/L (136-145)
[2021-04-12] MEDS: Acetaminophen 500 MG Tablet 1000 MG PO (12:26)
[2021-04-12 13:30] LABS: BNP,B-Type NATRIURETIC PEPTIDE 54.4 pg/mL (0-100)
--- NOTE | 2021-04-12 13:55 | ED.RN ---
This RN in room to ambulate pt. Asks pt how he is doing. Pt stands up up. rips pulse ox off of finger and begins screaming at this rn. Pt screaming I'm not fucking doing good, I am sick and tired of this, this place is a piece of shit. This RN attempted to apologize to pt. Pt yelling I do not want to here any of your shit, I want to leave. This RN tells pt if he wants to leave he can. Pt again yelling at staff. 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
--- NOTE | 2021-04-12 13:58 | ED.RN ---
Pt refuses to ambulate with pulse ox. Alli RN in to talk with pt. Iv dc'd, leads removed. Dr small
--- NOTE | 2021-04-12 14:13 | ED.RN ---
Pt walks out of department prior to receiving his discharge paperwork. Dr Mckinley aware pt did not receive Robitussin, per physician okay to dc medication
== END 2021-04-12 14:23 | disposition home or self-care (01) ==
PROVIDERS: Emergency Provider Emergency Medicine; PCP Family Medicine
DX: J20.9 Acute bronchitis, unspecified (principal); I10 Essential (primary) hypertension; I27.20 Pulmonary hypertension, unspecified; I48.0 Paroxysmal atrial fibrillation; E78.5 Hyperlipidemia, unspecified; K52.9 Noninfective gastroenteritis and colitis, unspecified; F03.90 Unspecified dementia, unspecified severity, without behavioral disturbance, psychotic disturbance, mood disturbance, and anxiety; M06.9 Rheumatoid arthritis, unspecified; E11.9 Type 2 diabetes mellitus without complications; Z79.01 Long term (current) use of anticoagulants; Z79.52 Long term (current) use of systemic steroids; Z79.84 Long term (current) use of oral hypoglycemic drugs; Z79.899 Other long term (current) drug therapy; Z86.16 Personal history of COVID-19; Z87.891 Personal history of nicotine dependence
CPT/HCPCS: 71045; 80048; 83880; 84484; 85025; 87426; 87804; 93005; 94640; 94667; 99284

== ENCOUNTER → 2021-04-17 10:59 | Outpatient (CLI) | payer MEDICARE, SELFPAY ==
[2020-12-15 08:37] VITALS: BMI 34.2
[2021-04-12 10:41] VITALS: BMI 34.6
[2021-04-17 12:31] LABS: Hematocrit 39.3 % (40-54); Hemoglobin 12.8 g/dL (13.0-16.5); Mean Corp Hgb Conc 32.6 g/dL (32-36); Mean Corpuscular Hgb 30.5 pg (27.0-32.0); Mean Corpuscular Volume 93.8 fL (80-94); Mean Platelet Vol. 11.3 fl (6.2-12.0); Platelet Count 191 K/mm3 (150-450); RBC Distribution Width CV 16.1 % (11.6-14.6); RBC Distribution Width SD 56.2 fl (35.1-43.9); Red Blood Count 4.19 M/mm3 (4.6-6.2); White Blood Count 11.4 K/mm3 (4.4-11.0)
[2021-04-17 12:53] LABS: PTHIN 59.8 pg/mL (18.4-80.1)
[2021-04-17 13:07] LABS: Albumin, Serum 3.4 g/dL (3.2-5.0); BUN 22 mg/dL (7-18); Calcium,Total 8.3 mg/dL (8.5-10.1); Chloride 107 mmol/L (98-107); Creatinine, Serum 1.57 mg/dL (0.70-1.30); EST Glomerular Filtration Rate 46 mL/min (>60); Est Glom Filt Rate - Afr Amer 55 mL/min (>60); Glucose 239 mg/dL (74-106); Phosphorus 3.3 mg/dL (2.5-4.9); Potassium 3.6 mmol/L (3.5-5.1); Sodium Level 140 mmol/L (136-145)
== END ==
PROVIDERS: PCP Family Medicine; Referring Provider Internal Medicine Nephrology; Visit Provider Internal Medicine Nephrology
DX: N18.32 Chronic kidney disease, stage 3b (principal); D63.1 Anemia in chronic kidney disease
CPT/HCPCS: 36415; 80069; 83970; 85027

== ENCOUNTER → 2021-05-12 | Outpatient (CLI) | payer MEDICARE, SELFPAY ==
[2021-02-09 10:52] VITALS: BMI 34.0
[2021-04-12 10:41] VITALS: BMI 34.6
[2021-05-12] MEDS: 0.9% NaCl Peripheral Flush Adult/Peds IV (09:37)
[2021-05-12 09:43] VITALS: BP 168/78; PULSE 80; RESP 18; TEMP 36.4; O2SAT 96; BMI 34.6
== END | disposition home or self-care (01) ==
LOC: MEDOUTP 09:24
PROVIDERS: PCP Family Medicine; Referring Provider Internal Medicine Rheumatology; Visit Provider Internal Medicine Rheumatology
DX: M06.09 Rheumatoid arthritis without rheumatoid factor, multiple sites (principal)
CPT/HCPCS: 96413; 96415; J7050; A4216; Q5103

== ENCOUNTER → 2021-06-15 15:42 | Outpatient (CLI) | payer MEDICARE, SELFPAY ==
[2021-06-15 16:54] LABS: PSA,Total - Annual Screen 8.77 ng/mL (0.00-4.00)
== END ==
PROVIDERS: PCP Family Medicine; Visit Provider Urology
DX: Z12.5 Encounter for screening for malignant neoplasm of prostate (principal); R31.0 Gross hematuria
CPT/HCPCS: 36415; 84153; 87086; 87088; G0103

== ENCOUNTER → 2021-06-15 | Outpatient (CLI) | payer MEDICARE, SELFPAY | END | disposition home or self-care (01) | LOC: LABSPEC 06-16 11:39 | PROVIDERS: PCP Family Medicine; Referring Provider Urology; Visit Provider Urology | DX: R31.0 Gross hematuria (principal) | CPT/HCPCS: 87086; 87088 ==

== ENCOUNTER → 2021-06-30 10:20 | Outpatient (CLI) | payer MEDICARE, SELFPAY ==
[2021-06-30 10:25] VITALS: BP 141/66; PULSE 67; RESP 16; TEMP 36.5; O2SAT 94
[2021-06-30] MEDS: 0.9% NaCl Peripheral Flush Adult/Peds IV (10:50)
== END ==
PROVIDERS: PCP Family Medicine; Referring Provider Internal Medicine Rheumatology; Visit Provider Internal Medicine Rheumatology
DX: M06.9 Rheumatoid arthritis, unspecified (principal)
CPT/HCPCS: 96413; 96415; J7050; A4216; Q5103

== ENCOUNTER 2021-08-16 06:44 | Day surgery (SDC) | payer MEDICARE, SELFPAY ==
[2021-08-10 11:24] LABS: Hematocrit 39.9 % (40-54); Hemoglobin 13.4 g/dL (13.0-16.5); Mean Corp Hgb Conc 33.6 g/dL (32-36); Mean Corpuscular Hgb 31.4 pg (27.0-32.0); Mean Corpuscular Volume 93.4 fL (80-94); Mean Platelet Vol. 10.6 fl (6.2-12.0); Platelet Count 263 K/mm3 (150-450); RBC Distribution Width CV 14.1 % (11.6-14.6); RBC Distribution Width SD 48.7 fl (35.1-43.9); Red Blood Count 4.27 M/mm3 (4.6-6.2); White Blood Count 7.1 K/mm3 (4.4-11.0)
[2021-08-10 11:42] LABS: Hemoglobin A1c 6.3 % (3.8-5.6)
[2021-08-10 12:09] LABS: Anion Gap 8 (5-15); BUN 18 mg/dL (7-18); BUN/Creat Ratio 11.8 RATIO (10-20); Calcium,Total 8.5 mg/dL (8.5-10.1); Chloride 105 mmol/L (98-107); Creatinine, Serum 1.53 mg/dL (0.70-1.30); EST Glomerular Filtration Rate 47 mL/min (>60); Est Glom Filt Rate - Afr Amer 57 mL/min (>60); Glucose 246 mg/dL (74-106); Potassium 3.7 mmol/L (3.5-5.1); Sodium Level 140 mmol/L (136-145)
--- NOTE | 2021-08-11 06:48 | EKG12_ITS ---
Test Reason : PREOP Blood Pressure : / mmHG Vent. Rate : 080 BPM Atrial Rate : 080 BPM P-R Int : 190 ms QRS Dur : 102 ms QT Int : 416 ms P-R-T Axes : 021 -46 021 degrees QTc Int : 479 ms Normal sinus rhythm Left anterior fascicular block Septal infarct , age undetermined Abnormal ECG Confirmed by ROMAN LAUGHLIN, SUMEET ([id number]), manager editorial CRISTI ROOT ([id number]) on 08/11/2021 6:49:49 AM Referred By: Surinder Larson Confirmed By:SUMEET OWENS MD
[2021-08-16] VITALS (15 sets, daily range): BP systolic 144–179; BP diastolic 76–93; PULSE 62–74; RESP 16–18; TEMP 35.9–36.4; O2SAT 92–97; BMI 36.6
[2021-08-16] MEDS: Lactated Ringers 1,000 ML 15 ML IV (07:39)
[2021-08-16] MEDS: Cefazolin 2 GM in 0.9% Normal Saline 100 ML IV (08:47)
--- NOTE | 2021-08-16 08:50 | PROS_PTH ---
PATIENT: MEGAN HOLLOWAY LOC: [facility] [place] U#:[id number] AGE/SX: 76/M ROOM: RE08/16/[address]: Dr. Surinder Larson MD : [id number] BED: DIS: 08/16/2021 SPEC #: [id number] RECD: 08/16/21 10:29 STATUS: KATTY BRYAN #: [id number] CHRIS: 08/16/21 08:[address]: Surinder Larson DEPT: SURGICAL PATHOLOGY RECD BY: Sabina Acosta ENTERED: 08/16/21 13:11 SP TYPE: TURP OTHR DR: Dr. Jayme Yang MD Tissues: Prostate, NOS Procedures: Surgery Specimen Level IV HEADER OPERATION: Cysto, TUR prostate, Olymp[employer] PRE-OP DIAGNOSIS: BPH TISSUE SUBMITTED: Prostate chips MICROSCOPIC DIAGNOSIS Prostate chips, TUR: Prostatic adenocarcinoma. Benign prostatic hyperplasia, glandular and stromal type. Chronic inflammation. Fragments of stones. See cancer summary in the comment section. SJ:rg 08/17/2021 COMMENT PROSTATE CANCER (TUR) SUMMARY: Procedure - transurethral resection of prostate (TURP) Histologic type ? acinar adenocarcinoma Histologic grade ([place] Pattern) ? grade group 1 (Liza score 3+3=6) Tumor Quantitation: Estimated percent of prostatic tissue involved by tumor - <5% Number of positive chips - ~10 Total number of chips - ~120 Periprostatic fat invasion ? not applicable Seminal vesicle invasion - not applicable Lymphvascular invasion ? not identified Perineural invasion - not identified Additional pathologic findings ? benign prostatic hyperplasia, glandular and stromal type. - Chronic inflammation. - Fragments of stone. Treatment effect ? No known presurgical therapy. The above summary is in compliance with [employer] (CAP) Cancer Protocols Checklist and [place] [employer] Committee on Cancer (AJCC), Staging Manual, 8th Ed. Case has been reviewed in consultation with Dr. Win who concurs with the above diagnosis. IDC:AM MICROSCOPIC DESCRIPTION Slides are reviewed. GROSS DESCRIPTION Received is one container labeled with the patient's name and designated prostate tissue. The specimen consists of multiple irregular fragments of pink-sales, rubbery, soft tissue that in aggregate weigh 7 gm and measure in aggregate 6 x 6 x 0.4 cm. Multiple black calculi ranging in size from <0.1 to 0.2 cm are also present. The entire specimen is submitted in six cassettes. / AM:yamini 08/16/21 TC:0 CPT: 44433
--- NOTE | 2021-08-16 09:59 | PCM.HP.STD ---
HPI - General HPI Narrative MEGAN HOLLOWAY, is a 76 M who presents for [facility] Medical History (Updated 08/09/21 @ 15:01 by Graciela Harrington) Acute respiratory insufficiency Ambulates with cane Arthritis Asthma Asymptomatic hypertensive urgency Atrial fibrillation with RVR Back pain Bronchitis Cardiology follow-up encounter Colitis Concussion Covid-19 COVID-19 virus infection CPAP (continuous positive airway pressure) dependence Dementia Diabetes Diverticula of colon DM2 (diabetes mellitus, type 2) Essential hypertension Excessive bleeding Former smoker Gastric reflux History of atrial fibrillation History of echocardiogram History of edema History of renal disease History of steroid therapy History of stress test Hyperlipidemia Hypertensive urgency Inflammatory bowel disease Injury of head and neck Intractable pain Kidney stones Loss of consciousness SUPA (obstructive sleep apnea) Paroxysmal atrial fibrillation Pulmonary hypertension Renal colic on left side Rheumatoid aortitis Rheumatoid arthritis Rhinovirus Sepsis Severe acute respiratory syndrome coronavirus 2 (SARS-CoV-2) infection ruled out Severe sepsis Sleep apnea SOB (shortness of breath) Ureterolithiasis Wears dentures Wears glasses Wears hearing aid Home Medications infliximab-dyyb 100 mg IV .COMPLEX 02/18/17 [History Last Taken 08/04/18] esomeprazole magnesium 20 mg PO DAILY 04/15/17 [History Last Taken 08/16/21] loratadine 10 mg PO QHS 04/15/17 [History Last Taken 06/22/20] glimepiride 2 mg PO DAILY 01/22/18 [History Last Taken 06/22/20] qqkrqvpn-pnp-FB-lycopen-lutein 1 ea PO DAILY 09/17/18 [History Last Taken 06/22/20] calcium carbonate-vitamin D3 600 mg (1,500 mg)-800 unit tablet 1 tab PO DAILY 06/02/19 [History Last Taken 06/22/20] duloxetine 60 mg capsule,delayed release 60 mg PO DAILY 06/02/19 [History Last Taken 06/22/20] gabapentin 600 mg tablet 600 mg PO BID tab 06/02/19 [History Last Taken 08/16/21] diphenhydramine HCl 25 mg PO BID PRN PRN 03/24/20 [History Last Taken Unknown] phenol-glycerin 30 ml MM Q2H PRN PRN #1 bottle 06/24/20 [Rx Last Taken Unknown] apixaban 5 mg tablet 5 mg PO BID #180 tab 11/11/20 [Rx Last Taken Unknown] rosuvastatin 20 mg tablet 20 mg PO DAILY #90 tab 11/28/20 [Rx Last Taken Unknown] potassium chloride 10 mEq tablet,extended release(part/cryst) 10 meq PO DAILY #30 tab 12/06/20 [Rx Last Taken Unknown] balsalazide 750 mg capsule 2,250 mg PO BID cap 02/08/21 [History Last Taken Unknown] lisinopril 30 mg tablet 30 mg PO BID tab 02/08/21 [History Last Taken 08/16/21] buspirone 7.5 mg PO BID 04/12/21 [History Last Taken Unknown] carvedilol 25 mg tablet 25 mg PO BID #180 tab 05/02/21 [Rx Last Taken 08/16/21] amlodipine 10 mg tablet 10 mg PO DAILY #90 tab 05/23/21 [Rx Last Taken Unknown] hydralazine 100 mg tablet 100 mg PO BID #180 tab 07/14/21 [Rx Last Taken 08/16/21] isosorbide mononitrate 60 mg tablet,extended release 24 hr 60 mg PO BID #60 tab 07/27/21 [Rx Last Taken Unknown] albuterol sulfate 2 puff INHALATION Q6H PRN 08/09/21 [History Last Taken Unknown] furosemide 20 mg PO DAILY 08/09/21 [History Last Taken Unknown] omega-3 fatty acids 1,000 mg PO DAILY 08/09/21 [History Last Taken Unknown] ciprofloxacin HCl 500 mg PO BID #10 tab 08/16/21 [Rx Last Taken Unknown] Allergy/AdvReac Type Severity Reaction Status Date / Time aspirin Allergy Severe Mouth Verified 08/16/21 07:29 swelling donepezil [From Aricept] AdvReac Severe Swelling Verified 08/16/21 07:29 minoxidil AdvReac Severe swelling Verified 08/16/21 07:29 morphine AdvReac Severe UNABLE TO Verified 08/16/21 07:29 URINATE Family History Mother Heart disease Diabetes Father Heart disease Lung disease Brother Heart disease Lung disease Cancer prostate, pancreatic Sister Diabetes Cancer uterine Surgical History (Updated 08/09/21 @ 12:58 by Graciela Harrington) Cervical vertebral fusion History of back surgery History of bilateral knee replacement History of removal of cyst Hx of colectomy Hx of cystoscopy Hx of surgical procedure Social History Smoking Status: Former smoker how long ago did patient quit smokin, 2ppd second hand exposure: Yes Vital Signs Vital Signs Vital Signs: 08/16/21 07:33 Temperature 96.9 F L Temperature Source Oral Pulse Rate 74 Respiratory Rate 16 Respiratory Pattern Normal Blood Pressure 159/93 H Blood Pressure Mean 115 Blood Pressure Source Monitor Blood Pressure Position Semi-Fowlers Blood Pressure Location Left Arm Pulse Ox 93 Oxygen Delivery Method Room Air Weight Weight: 100 kg Body Mass Index (BMI) 36.6 Results Lab / Micro Data Result Diagrams: 08/10/21 10:30 08/10/21 10:30
--- NOTE | 2021-08-16 09:59 | PCM.DC ---
Discharge Instructions Diet Discharge Diet: No restrictions Dressing / Incision Call your doctor if your incision/area has: Continuous Slow Oozing, Increased Pain/ Swelling, Increased Redness and Foul Smelling Discharge Call your doctor if you observe: Fever of 101 or Higher, Numbness or Tingling, Shortness of breath, Dizziness, Calf discomfort and Uncontrolled pain Catheter: Hendrickson to leg bag and Hendrickson to large bag Drain: [place] Additional Dressing/Incision Instructions:: remove hendrickson in 3 days Follow Up Care Please Follow Up With: Surinder Larson MD Test Results: Test results from this visit will be discussed in further detail at your follow-up appointment, if applicable. Discharge Plan Admission Primary Reason for Your Visit: turp Attending Provider: Surinder Larson Primary Care Provider: Jayme Yang Discharge Orders/Prescriptions Prescriptions: New ciprofloxacin HCl 500 mg tablet 500 mg PO BID Qty: 10 RF: 0 Continued duloxetine [Cymbalta] 60 mg capsule,delayed release(DR/EC) 60 mg PO DAILY RF: 0 calcium carbonate-vitamin D3 [Caltrate with Vitamin D3] 600 mg(1,500mg) -800 unit tablet 1 tab PO DAILY RF: 0 lisinopril 30 mg tablet 30 mg PO BID RF: 0 balsalazide 750 mg capsule 2,250 mg PO BID RF: 0 gabapentin 600 mg tablet 600 mg PO BID RF: 0 infliximab-dyyb 100 MG/10 ML recon soln 100 mg IV .COMPLEX RF: 0 loratadine 10 MG tablet 10 mg PO QHS RF: 0 esomeprazole magnesium 22.3 MG capsule,delayed release(DR/EC) 20 mg PO DAILY RF: 0 glimepiride 2 MG tablet 2 mg PO DAILY RF: 0 vwkhykvd-jjf-GM-lycopen-lutein 1 EACH tablet 1 ea PO DAILY RF: 0 diphenhydramine HCl 25 MG capsule 25 mg PO BID PRN PRN (Reason: reaction) RF: 0 phenol-glycerin 30 ML spray,non-aerosol 30 ml MM Q2H PRN PRN (Reason: Sore Throat) Qty: 1 RF: 0 buspirone 7.5 mg tablet 7.5 mg PO BID RF: 0 furosemide 40 mg tablet 20 mg PO DAILY RF: 0 albuterol sulfate 90 mcg/actuation Hfa Aerosol Inhaler 2 puff INHALATION Q6H PRN (Reason: SOB) RF: 0 omega-3 fatty acids Capsule 1,000 mg PO DAILY RF: 0 apixaban 5 mg tablet 5 mg PO BID Qty: 180 RF: 3 rosuvastatin 20 mg tablet 20 mg PO DAILY Qty: 90 RF: 3 potassium chloride 10 mEq tablet,ER particles/crystals 10 meq PO DAILY Qty: 30 RF: 11 carvedilol 25 mg tablet 25 mg PO BID Qty: 180 RF: 3 amlodipine 10 mg tablet 10 mg PO DAILY Qty: 90 RF: 3 hydralazine 100 mg tablet 100 mg PO BID Qty: 180 RF: 3 isosorbide mononitrate 60 mg tablet extended release 24 hr 60 mg PO BID Qty: 60 RF: 11 Referrals / Follow Up: Surinder Larson MD [STAFF PHYSICIAN] - Jayme Yang MD [Primary Care Provider] - Disposition Disposition (needs filled in before D/C Order can be placed): Home, Self Care
--- NOTE | 2021-08-16 10:00 | OP.PCM_ITS ---
Report of Operation Date of Procedure: 08/16/21 Pre-Operative Diagnosis: bph with obstruction Post-Operative Diagnosis: same Surgery/Procedure Performed:: turp Description of Surgical Findings:: In the preoperative setting I discussed with the patient how the surgery would be done with expect afterwards. We discussed how a prostate resection is done and we discussed the risk of the surgery including, bleeding, infection, retrograde ejaculation, changes with ejaculation or intercourse,. We discussed the possibility that the resection of the prostate may not alleviate his urinary symptoms. We discussed the small risk of developing scar tissue along the urethral channel and strictures. We also discussed the chance of the prostate could grow back and he may need further surgery or treatment in the future for prostate problems. Patient was taken back to the operating room, timeout procedure was performed, he was identified and marked and placed on the operating room table. He underwent general anesthesia. He was placed in dorsolithotomy position. Penis and testicles were prepped and draped in usual sterile fashion. Went into the bladder using the visual obturator with a resectoscope. Once inside the bladder identified the right and left ureteral orifice. I then identified the prostate and the anatomy of the prostate. I marked out the area of the sphincter and the verumontanum was identified. I then proceeded with the prostate resection first resected the median lobe. And then resected the right lobe of the prostate. Then to resect the left lobe of the prostate. I then resected the apical tissue of the prostate. This was a complete resection of all obstructive tissue. I then made sure that there was no injury to the sphincter or the verumontanum was still intact. At the end of the resection all the chips were Ellik out of the bladder. I then identified the left and right ureteral orifice and these were confirmed to be in good position and effluxing and not injured. The resectoscope was removed, a 22 [place] catheter was placed into the bladder on continuous irrigation. And the urine was fairly light pink color and draining normally. He was taken back to the PACU in good condition. CPT 17754 Surgeon: rosette Type of Anesthesia: General Drains: 20 fr hendrickson Admit VTE Documentation VTE Present on Admission: No VTE Mechan Device Prophylaxis: SCD's VTE Pharm Prophylaxis ordered?: No
[2021-08-16 10:35] LABS: Bedside Glucose 170 mg/dL (70-110)
[2021-08-16 10:35] LABS: Bedside Glucose 132 mg/dL (70-110)
--- NOTE | 2021-08-16 11:00 | SUR.PHASEI ---
Addendum entered by Elisa Nickerson 08/16/21 11:34: CORRECTION: ONE MODERATE SIZE CLOT REMOVED WHILE IRRIGATING, HUSAIN CATH CONTINUES TO FLOW FREELY. Original Note: SLEEPING, SNORING, NO S/S DISTRESS, VSS. AWAKENS EASILY, VERY [place] WITH HEARING AIDES IN B/L. UPON AWAKENING, C/O NAUSEA AND FEELING LIKE HIS CATHETER IS NOT DRAINING, THAT IT'S TOO FAR UP. GENTLY IRRIGATED WITH 50 ML NSS, RETURNED PINK FLUID, NO CLOTS NOTED AT THIS TIME. REASSURANCE, COMFORT, AND EDUCATION PROVIDED.
[2021-08-16] MEDS: Lactated Ringers 1,000 ML 100 ML IV (12:09)
== END 2021-08-16 15:40 | disposition home or self-care (01) ==
LOC: SDC 06:44 → AC 06:45
PROVIDERS: Anesthesiology; PCP Family Medicine; Referring Provider Urology; Visit Provider Urology
PROC: (CPT 52601; principal; 2021-08-16 08:40)
DX: N40.1 Benign prostatic hyperplasia with lower urinary tract symptoms (principal); N13.8 Other obstructive and reflux uropathy; C61 Malignant neoplasm of prostate; R35.1 Nocturia; R35.0 Frequency of micturition; R39.12 Poor urinary stream; I27.20 Pulmonary hypertension, unspecified; I01.1 Acute rheumatic endocarditis; I35.0 Nonrheumatic aortic (valve) stenosis; I44.4 Left anterior fascicular block; I48.0 Paroxysmal atrial fibrillation; I10 Essential (primary) hypertension; E11.9 Type 2 diabetes mellitus without complications; E78.5 Hyperlipidemia, unspecified; J45.909 Unspecified asthma, uncomplicated; K21.9 Gastro-esophageal reflux disease without esophagitis; K52.9 Noninfective gastroenteritis and colitis, unspecified; K57.30 Diverticulosis of large intestine without perforation or abscess without bleeding; M19.90 Unspecified osteoarthritis, unspecified site; M06.9 Rheumatoid arthritis, unspecified; G47.33 Obstructive sleep apnea (adult) (pediatric); F03.90 Unspecified dementia, unspecified severity, without behavioral disturbance, psychotic disturbance, mood disturbance, and anxiety; Z79.84 Long term (current) use of oral hypoglycemic drugs; Z79.899 Other long term (current) drug therapy; Z86.16 Personal history of COVID-19; Z87.891 Personal history of nicotine dependence; Z79.01 Long term (current) use of anticoagulants
CPT/HCPCS: 52601; 36415; 80048; 82962; 83036; 85027; 88305; 93005; J7120; J2405

== ENCOUNTER → 2021-08-25 09:30 | Outpatient (CLI) | payer MEDICARE, SELFPAY ==
[2021-08-25 09:36] VITALS: BP 130/82; PULSE 84; RESP 18; TEMP 35.9; O2SAT 94
[2021-08-25] MEDS: 0.9% NaCl Peripheral Flush Adult/Peds IV (10:07)
== END ==
PROVIDERS: PCP Family Medicine; Referring Provider Internal Medicine Rheumatology; Visit Provider Internal Medicine Rheumatology
DX: M06.09 Rheumatoid arthritis without rheumatoid factor, multiple sites (principal); K51.80 Other ulcerative colitis without complications
CPT/HCPCS: 96413; 96415; J7050; A4216; Q5103

== ENCOUNTER → 2021-09-26 09:52 | Outpatient (CLI) | payer MEDICARE, SELFPAY ==
[2021-09-26 10:43] LABS: Absolute Lymphocyte Count 2.16 X10^3/uL (0.83-4.51); Absolute Neutrophil Count 2.8 X10^3/uL (2.0-7.7); Basophil# 0.02 X10^3/uL; Basophil% 0.3 % (0-1); Eosinophils% 3.4 % (0-5); Hematocrit 40.9 % (40-54); Hemoglobin 13.2 g/dL (13.0-16.5); Lymphocyte # 2.16 X10^3/ul (0.83-4.51); Lymphocyte % 37.1 % (19-41); Mean Corp Hgb Conc 32.3 g/dL (32-36); Mean Corpuscular Hgb 30.3 pg (27.0-32.0); Mean Platelet Vol. 10.7 fl (6.2-12.0); Monocyte# 0.58 X10^3/uL; NRBC Flagged by Analyzer 0 % (0-5); Neutrophil # 2.84 X10^3/uL (2.7-7.7); Neutrophil % 48.9 % (47-70); Platelet Count 190 K/mm3 (150-450); RBC Distribution Width CV 14.6 % (11.6-14.6); RBC Distribution Width SD 50.8 fl (35.1-43.9); Red Blood Count 4.35 M/mm3 (4.6-6.2); White Blood Count 5.8 K/mm3 (4.4-11.0)
[2021-09-26 11:06] LABS: ALB/GLOB Ratio 0.8 RATIO (0.9-2.4); AST(SGOT) 29 U/L (15-37); Alanine Aminotransfer ALT/SGPT 35 U/L (16-61); Albumin, Serum 3.4 g/dL (3.2-5.0); Alkaline Phosphatase 57 U/L (45-117); Anion Gap 7 (5-15); BUN 16 mg/dL (7-18); Calcium,Total 8.8 mg/dL (8.5-10.1); Chloride 107 mmol/L (98-107); Creatinine, Serum 1.46 mg/dL (0.70-1.30); EST Glomerular Filtration Rate 50 mL/min (>60); Est Glom Filt Rate - Afr Amer 60 mL/min (>60); Globulin 4.1 g/dL (2.2-4.2); Glucose 171 mg/dL (74-106); Potassium 3.7 mmol/L (3.5-5.1); Protein, Total 7.5 g/dL (6.4-8.2); Sodium Level 144 mmol/L (136-145)
== END ==
PROVIDERS: PCP Family Medicine; Referring Provider Internal Medicine Rheumatology; Visit Provider Internal Medicine Rheumatology
DX: M06.09 Rheumatoid arthritis without rheumatoid factor, multiple sites (principal); M15.9 Polyosteoarthritis, unspecified; M47.897 Other spondylosis, lumbosacral region; M51.37 Other intervertebral disc degeneration, lumbosacral region; K51.80 Other ulcerative colitis without complications; I48.0 Paroxysmal atrial fibrillation; I12.9 Hypertensive chronic kidney disease with stage 1 through stage 4 chronic kidney disease, or unspecified chronic kidney disease; E11.22 Type 2 diabetes mellitus with diabetic chronic kidney disease; N18.9 Chronic kidney disease, unspecified; E78.5 Hyperlipidemia, unspecified; I27.20 Pulmonary hypertension, unspecified; G47.33 Obstructive sleep apnea (adult) (pediatric); K57.90 Diverticulosis of intestine, part unspecified, without perforation or abscess without bleeding; K21.00 Gastro-esophageal reflux disease with esophagitis, without bleeding; Z79.899 Other long term (current) drug therapy; Z87.442 Personal history of urinary calculi
CPT/HCPCS: 36415; 80053; 85025

== ENCOUNTER 2021-10-04 09:15 | Outpatient (CLI) | payer MEDICARE, SELFPAY ==
--- NOTE | 2021-10-04 16:41 | PFTCOMP_ITS ---
COMPLETE PULMONARY FUNCTION TEST INTERPRETATION Brief HPI: Patient is a 76 year old male, currently under the care of Dr. Lino, who presents to [facility] for complete pulmonary function tests secondary to diagnosis of syncope. Respiratory therapist reports good effort and reproducible results. Interpretation: Forced expiration spirometry shows no large airways obstructive ventilatory defect with an FEV1 of 85% predicted. There is no significant bronchodilator response by strict ATS criteria. Spirograms are of good quality and plateau normally. The respiratory flow volume loop shows a normal pattern. Lung volumes by body plethysmography show a normal total lung capacity at 5.14 L, 90% predicted. All other lung volumes are within normal limits. Diffusion capacity by carbon monoxide is normal at 106% predicted. The airway resistance is normal. No previous pulmonary function tests were available for review. Impression: These pulmonary function tests are within normal limits
== END 2021-10-04 23:59 | disposition short-term general hospital (02) ==
LOC: PSN 09:17
PROVIDERS: PCP Family Medicine; Referring Provider Physician Assistant Medical; Visit Provider Physician Assistant Medical
DX: I35.0 Nonrheumatic aortic (valve) stenosis (principal); I48.0 Paroxysmal atrial fibrillation; R55 Syncope and collapse; I51.7 Cardiomegaly; I10 Essential (primary) hypertension
CPT/HCPCS: 94060; 94726; 94729

== ENCOUNTER 2021-10-05 09:31 | Outpatient (CLI) | payer MEDICARE, SELFPAY ==
--- NOTE | 2021-10-05 09:35 | CDU_ITS ---
Reason For Study: Syncope Rt. Velocities/BP Lt. Velocities/BP Prox CCA 86.5/20 cm/sec. Prox CCA 118.2/22.5 cm/sec. Mid CCA 100.8/23.9 cm/sec. Mid CCA 110.1/24.3 cm/sec. Dist CCA 85.2/22.6 cm/sec. Dist CCA 80.9/18.8 cm/sec. Prox ICA 58.6/9.1 cm/sec. Prox ICA 81.4/12.6 cm/sec. Mid ICA 68.4/21.2 cm/sec. Mid ICA 71.6/22.5 cm/sec. Dist ICA 60.8/20.1 cm/sec. Dist ICA 67.9/24.9 cm/sec. Rt. ICA/CCA = 0.79. Lt. ICA/CCA = 0.74. Prox ECA 111.1/16.7 cm/sec. Prox ECA 82.7/12.6 cm/sec. Rt. Vert. 52/17.9 cm/sec. Lt. Vert. 41/12.4 cm/sec. Right Extracranial There is homogeneous, smooth atherosclerotic plaque noted in the right common carotid artery. There is heterogeneous, irregular atherosclerotic plaque noted in the right internal carotid artery. There is intimal thickening but no significant atherosclerotic plaque noted in the right external carotid artery. Antegrade flow is noted in the right vertebral artery. There is heterogeneous, irregular atherosclerotic plaque noted in the right bulb. Left Extracranial There is heterogeneous, irregular atherosclerotic plaque noted in the left common carotid artery. There is heterogeneous, irregular atherosclerotic plaque noted in the left internal carotid artery. There is intimal thickening but no significant atherosclerotic plaque noted in the left external carotid artery. Antegrade flow is noted in the left vertebral artery. Procedure Carotid Duplex 13239. This is a Carotid Duplex examination using B-mode, color flow and specral Doppler. Exam performed in department. VL/Carotid Duplex Ultrasound Interpretation Summary Irregular calcific plaque at the proximal right internal carotid artery with le ss than 50% stenosis Less than 50% stenosis right external carotid artery Irregular calcific plaque of the proximal left internal carotid artery with les s than 50% stenosis Less than 50% stenosis left external carotid artery Patent antegrade vertebral arteries bilaterally Ordering Physician: Faye Martinez Referring Physician: Jayme Yang Performed By: Vane Barry RVT
--- NOTE | 2021-10-05 09:35 | ECHOCS_ITS ---
Reason For Study: MURMUR Procedure This was a 2D Doppler, Color Flow transthoracic echocardiogram. The study was technically difficult. Contrast injection was performed. Exam performed in department. Left Ventricle Normal LV size. Mild concentric left ventricular hypertrophy. Left ventricular systolic function is normal. The estimated ejection fraction is 65 %. Diastolic function is indeterminate. No regional wall motion abnormalities noted. Right Ventricle Normal RV size. Normal systolic function. Atria The left atrium is mildly enlarged. Normal right atrium. No doppler evidence for ASD. Mitral Valve There is mild to moderate mitral annular calcification. Extension of the mitral annular calcification onto the base of the posterior mitral valve leaflet. Mild focal mitral valve calcification of the anterior leaflet. Mild (1+) mitral valve insufficiency. Tricuspid Valve Normal tricuspid valve. Trivial tricuspid valve insufficiency. Right ventricular systolic pressure estimated to be 33 mmHg. Aortic Valve Trisinus/trileaflet aortic valve. Mild diffuse aortic valve thickening. Moderate focal aortic valve calcification. Mild aortic stenosis. Pulmonic Valve The pulmonic valve is not well visualized. Mild (1+) pulmonic valve insufficiency. Great Vessels Normal sized aortic root. Pericardium/Pleural No pericardial effusion. Medication 22 gauge I.V. with prn adaptor inserted into right arm. Diluted definity 2.0ml given slow IV push to enhance endocardial definition. MMode/2D Measurements & Calculations LVIDd: 4.9 cm IVSd: 1.4 cm LVOT diam: 2.0 cm LVIDs: 3.2 cm LVPWd: 1.3 cm RVDd: 3.7 cm FS: 35.0 % LVOT area: 3.0 cm2 Ao root diam: 3.7 cm LAV(MOD-bp): 50.6 ml LVAd ap4: 36.5 cm2 LAV(MOD-bp) Indexed: 24.5 ml/m2 LVLd ap4: 8.9 cm LAV(MOD-sp2): 43.6 ml EDV(MOD-sp4): 124.7 ml LAV(MOD-sp4): 46.2 ml EDV(sp4-el): 126.4 ml LVAs ap4: 17.0 cm2 LVLs ap4: 6.9 cm ESV(MOD-sp4): 35.0 ml ESV(sp4-el): 35.4 ml EF(MOD-sp4): 71.9 % EF(sp4-el): 72.0 % LVAd ap2: 29.9 cm2 SV(MOD-sp4): 89.7 ml SV(MOD-sp2): 49.5 ml LVLd ap2: 8.2 cm EDV(MOD-sp2): 87.8 ml EDV(sp2-el): 92.0 ml LVAs ap2: 17.8 cm2 LVLs ap2: 6.9 cm ESV(MOD-sp2): 38.3 ml ESV(sp2-el): 38.8 ml EF(MOD-sp2): 56.4 % SV(sp4-el): 90.9 ml LA dimension(2D): 4.7 cm LA A4 area: 19.8 cm2 RA A4 area: 14.6 cm2 Doppler Measurements & Calculations MV E max roge: 84.2 cm/sec Lat Peak E' Roge: 3.4 cm/sec Med Peak E' Roge: 4.6 cm/sec MV A max roge: 132.6 cm/sec E/E' lat: 25.1 E/E' med: 18.1 MV E/A: 0.64 Ao V2 max: 182.9 cm/sec LV V1 max: 101.9 cm/sec TR max roge: 275.4 cm/sec Ao max P.4 mmHg LV V1 max P.2 mmHg TR max P.3 mmHg LU(V,D): 1.7 cm2 ECHO/Echo Complete W/ Contrast Interpretation Summary The study was technically difficult. Contrast injection was performed. Left ventricular systolic function is normal. The estimated ejection fraction is 65 %. Mild concentric left ventricular hypertrophy. The left atrium is mildly enlarged. There is mild to moderate mitral annular calcification. Extension of the mitral annular calcification onto the base of the posterior mi tral valve leaflet. Mild focal mitral valve calcification of the anterior leaflet. Mild (1+) mitral valve insufficiency. Trivial tricuspid valve insufficiency. Mild aortic stenosis. Mild (1+) pulmonic valve insufficiency. Right ventricular systolic pressure estimated to be 33 mmHg. Diastolic function is indeterminate. Ordering Physician: Faye Martinez Referring Physician: JAYME HARRY Performed By: Karen Pierre, JOE, RVT
== END 2021-10-05 23:59 | disposition short-term general hospital (02) ==
LOC: CVS 09:32
PROVIDERS: PCP Family Medicine; Referring Provider Internal Medicine; Visit Provider Physician Assistant Medical
DX: I48.91 Unspecified atrial fibrillation (principal); I11.0 Hypertensive heart disease with heart failure; I48.0 Paroxysmal atrial fibrillation; I35.0 Nonrheumatic aortic (valve) stenosis; I51.7 Cardiomegaly; R55 Syncope and collapse
CPT/HCPCS: 93306; 93880; Q9957; A4216; C8929

== ENCOUNTER 2021-10-05 11:20 | Outpatient (CLI) | payer MEDICARE, SELFPAY | END 2021-10-05 23:59 | disposition short-term general hospital (02) | LOC: CVS 10-06 11:23 | PROVIDERS: PCP Family Medicine; Referring Provider Physician Assistant Medical; Visit Provider Physician Assistant Medical | DX: I48.91 Unspecified atrial fibrillation (principal); I11.0 Hypertensive heart disease with heart failure; I48.0 Paroxysmal atrial fibrillation; I35.0 Nonrheumatic aortic (valve) stenosis; I51.7 Cardiomegaly; R55 Syncope and collapse | CPT/HCPCS: 93271; 93306; 93880; Q9957; A4216; C8929 ==

== ENCOUNTER 2021-10-13 09:30 | Outpatient (CLI) | payer MEDICARE, SELFPAY ==
[2021-10-13 10:10] VITALS: BP 155/82; PULSE 72; RESP 16; TEMP 36.3; O2SAT 94; BMI 37.5
[2021-10-13 14:01] LABS: Protein, Urine (Random) 65.4 mg/dL (<11.9); Protein:Creat Ratio 1441 mg/g CRE (0-200)
[2021-10-13 14:18] LABS: Albumin, Serum 3.8 g/dL (3.2-5.0); BUN 19 mg/dL (7-18); BUN/Creat Ratio 12.7 RATIO (10-20); Chloride 109 mmol/L (98-107); EST Glomerular Filtration Rate 48 mL/min (>60); Est Glom Filt Rate - Afr Amer 58 mL/min (>60); Estimated Creatinine Clearance 35.88 ml/min; Glucose 127 mg/dL (74-106); Phosphorus 2.9 mg/dL (2.5-4.9); Potassium 3.7 mmol/L (3.5-5.1); Sodium Level 142 mmol/L (136-145)
== END 2021-10-13 23:59 | disposition short-term general hospital (02) ==
PROVIDERS: Internal Medicine Nephrology; PCP Family Medicine; Referring Provider Internal Medicine Rheumatology; Visit Provider Internal Medicine Rheumatology
DX: M06.9 Rheumatoid arthritis, unspecified (principal); E11.22 Type 2 diabetes mellitus with diabetic chronic kidney disease; N18.32 Chronic kidney disease, stage 3b
CPT/HCPCS: 96413; 96415; 36415; 80069; 82570; 84156; J7050; Q5103

== ENCOUNTER 2021-10-16 15:42 | Outpatient (CLI) | payer MEDICARE, SELFPAY ==
--- NOTE | 2021-10-16 | LES_PTH ---
PATIENT: MEGAN HOLLOWAY LOC: [facility] U#:[id number] AGE/SX: 76/M ROOM: RE10/16/[address]: Dr. Adrien De Guzman MD : 1945 BED: DIS: 10/16/2021 SPEC #: [id number] RECD: 10/16/21 14:52 STATUS: KATTY REPhilippe #: [id number] CHRIS: 10/16/21 00:[address]: Adrien De Guzman DEPT: SURGICAL PATHOLOGY RECD BY: Augusto Dean ENTERED: 10/17/21 08:25 SP TYPE: Lesion OTHR DR: Dr. Jayme Yang MD Tissues: Skin of eyelid, NOS Procedures: Surgery Specimen Level IV HEADER OPERATION: Left upper lid lesion PRE-OP DIAGNOSIS: Possible papilloma TISSUE SUBMITTED: Left upper eyelid lesion MICROSCOPIC DIAGNOSIS Left upper eyelid lesion, biopsy: Consistent with inflamed squamous papilloma with focal verrucous keratosis features. SJ:yamini 10/18/2021 MICROSCOPIC DESCRIPTION Slides are reviewed. GROSS DESCRIPTION Received in fixative is one container labeled with the patient's name and designated left upper lid. The specimen consists of one irregular fragment of sales-white skin that measures 0.4 x 0.4 x 0.2 cm. Multiple hair are noted. The specimen is totally submitted in one cassette. / IVIS:yamini 10/17/2021 TC:5 CPT: 04291
== END 2021-10-16 23:59 | disposition short-term general hospital (02) ==
LOC: LABSPEC 15:45
PROVIDERS: PCP Family Medicine; Visit Provider Ophthalmology
DX: H02.89 Other specified disorders of eyelid (principal)
CPT/HCPCS: 88305

== ENCOUNTER 2021-10-17 07:52 | Outpatient (CLI) | payer MEDICARE, SELFPAY ==
--- NOTE | 2021-10-17 08:01 | CT_ITS ---
STUDY: CTA HEAD AND NECK WITH CONTRAST REASON FOR EXAM: Male, 76 years old. Frequent falls. RADIATION DOSAGE (If Supplied By Facility): CTDIvol = ( 27.40 ) mGy, DLP = ( 1635.85 ) mGycm TECHNIQUE: CT angiography was performed with a multi-detector CT scanner. Data acquisition was obtained from the skull base through the vertex following intravenous administration of IV 100mL Isovue-370. MIP images were reconstructed from the axial data set. Post-processing of the angiographic images was performed, with multiplanar reformation and 3D reconstruction. Individualized dose optimization techniques were used for this CT. COMPARISON: No relevant priors. FINDINGS: Normal bilateral petrous carotid arteries. There is calcified plaque formation of the right cavernous carotid artery, without a cross-sectional luminal stenosis. There is calcified plaque formation of the left cavernous carotid artery, without a cross-sectional luminal stenosis. Normal right A1 segments of the anterior cerebral artery. Normal left A1 segments of the anterior cerebral artery. Normal intact anterior communicating artery (ACOM). Normal bilateral A2 segments of the anterior cerebral arteries. Normal right M1 and M2 segments of the middle cerebral arteries, with a normal M1 bifurcation. Normal left M1 and M2 segments of the middle cerebral arteries, with a normal M1 bifurcation. Normal right posterior communicating artery (PCOM). Normal left posterior communicating artery (PCOM). Normal bilateral vertebral arteries. Normal basilar artery with a normal basilar bifurcation. The visualized bilateral superior cerebellar (SCA) arteries are normal. Normal bilateral P1, P2 and visualized P3 segments of the posterior cerebral arteries. There is no demonstrated aneurysm of the [place]. Mild degree of cerebral atrophy. This is in keeping with the patient''s age. Partial opacification of the maxillary sinus bilaterally worse on the left side. Tiny hypodensities are seen within both lobes the thyroid gland. AORTIC ARCH: There is atherosclerotic calcific plaque formation of the aortic arch and great vessels arising from the aortic arch, without a hemodynamically significant stenosis. There is a normal origin of the brachiocephalic, left common carotid, and left subclavian arteries. Nonstenotic calcific plaques at the origins of the left subclavian artery and left common carotid artery. RIGHT CAROTID ARTERIES: Normal right common carotid artery (CCA). There is moderate atherosclerotic plaque formation with moderate narrowing of the right carotid bulb. There is moderate atherosclerotic plaque formation of the origin of the right internal carotid artery with an estimated stenosis of 50-69% stenosis. Normal visualized cervical portion of the right internal carotid artery. Normal origin of the right external carotid artery (ECA). LEFT CAROTID ARTERIES: Normal left common carotid artery (CCA). There is mild atherosclerotic plaque formation with minimal narrowing of the left carotid bulb. There is mild atherosclerotic plaque formation of the origin of the left internal carotid artery with less than 50% cross sectional diameter stenosis. Normal visualized cervical portion of the left internal carotid artery. Normal origin of the left external carotid artery (ECA). VERTEBRAL ARTERIES: Normal bilateral vertebral arteries. The patient status post laminectomy and fusion in the lower cervical spine. CT/CTA Head AND Neck W/ Contrast IMPRESSION: Calcific plaque at the origin of the right internal carotid artery causing between 50 and 69% luminal stenosis. Calcific plaques at the origin of the left internal carotid artery causing less than 50% luminal stenosis. Electronically Signed: Shad Macias MD at 9:23 EST , Service support ,
== END 2021-10-17 23:59 | disposition short-term general hospital (02) ==
LOC: CT 07:54
PROVIDERS: PCP Family Medicine; Referring Provider Physician Assistant Medical; Visit Provider Physician Assistant Medical
DX: R55 Syncope and collapse (principal)
CPT/HCPCS: 70496; 70498; Q9967

== ENCOUNTER 2021-11-22 06:37 | Outpatient (CLI) | payer MEDICARE, SELFPAY ==
--- NOTE | 2021-11-22 07:58 | STRESSREP ---
Stress Test Report Date: 11-22-2021 Procedure: Pharmacologic stress nuclear imaging study Indications: Syncope; ventricular tachycardia; atrial fibrillation Consent: Per the patient Procedure: The patient underwent pharmacologic (Regadenoson 0.4mg ) evaluation with a peak heart rate of 91 beats per minute (63%predicted maximal heart rate) and a peak blood pressure of 178/102 mmHg. The baseline ECG demonstrated normal sinus rhythm; poor R wave progression; anterolateral GA of indeterminate age cannot be excluded. The peak pharmacologic ECG demonstrated no obvious ECG changes. There were no cardiac dysrhythmias pretest, during pharmacologic infusion, or recovery. There was no complaint of chest discomfort during pharmacologic infusion or recovery. The examination was discontinued secondary to completion of protocol. Impression: 1. Pharmacologic (Regadenoson) evaluation 2. Peak pharmacologic ECG with no obvious ECG changes. 3. There were no cardiac dysrhythmias pretest, during pharmacologic infusion, or recovery. 4. Nuclear images pending Myocardial perfusion imaging study: Technique: The patient was injected with 14.4 millicuries of technetium 99m Cardiolite and subsequently rest SPECT Cardiolite nuclear imaging was obtained in the horizontal long, vertical long, and short axis views. The patient underwent pharmacologic (Regadenoson) evaluation with a peak heart rate of 91 beats per minute (63% percent predicted maximal heart rate) and a peak blood pressure of 178/102 mmHg. The patient was injected with 44.3 millicuries of technetium 99m Cardiolite and subsequently stress SPECT Cardiolite nuclear imaging was obtained in the horizontal long, vertical long, and short axis views. A gated Cardiolite study at peak stress was not obtained. Interpretation: Rest and stress SPECT Cardiolite nuclear imaging status post realignment, normalization, and attenuation correction demonstrate the appearance of relative uniform tracer uptake and myocardial perfusion appearing within normal limits at rest. Status post stress there is a small area of diminished myocardial perfusion/tracer uptake in the distal inferolateral segments. There are similar type findings on the stress poor map images. Impression: 1. Rest and stress SPECT her nuclear imaging demonstrate myocardial perfusion changes potentially compatible with an are of stress-induced myocardial ischemia involving the distal inferolateral segments. 2. A gated Cardiolite study at peak stress was not obtained. This note was generated with [employer] software. It may contain incorrect words, spelling, and punctuation that were not noted in checking the note before signing.
== END 2021-11-22 23:59 | disposition home or self-care (01) ==
PROVIDERS: PCP Family Medicine; Referring Provider Internal Medicine Cardiovascular Disease; Visit Provider Internal Medicine Cardiovascular Disease
DX: I47.2 Ventricular tachycardia (principal); R06.02 Shortness of breath
CPT/HCPCS: 78452; 93017; A9500; A4216; J2785

== ENCOUNTER 2021-12-21 10:21 | Observation (INO) | payer MEDICARE, SELFPAY ==
[2021-12-21] VITALS (10 sets, daily range): BP systolic 139–209; BP diastolic 97–114; PULSE 65–94; RESP 16–18; TEMP 36.4–37.1; O2SAT 91–98; BMI 36.6; BMI 33.0
--- NOTE | 2021-12-21 10:27 | ED.RN ---
NOTIFIED DR SANDRA ABOUT PT SX AND ARRIVAL. TO SEE PT. NO IMMEDIATE ORDERS.
--- NOTE | 2021-12-21 10:45 | EKG12_ITS ---
Test Reason : SYNCOPE Blood Pressure : / mmHG Vent. Rate : 085 BPM Atrial Rate : 085 BPM P-R Int : 190 ms QRS Dur : 100 ms QT Int : 410 ms P-R-T Axes : 024 -50 011 degrees QTc Int : 487 ms Normal sinus rhythm Left axis deviation Inferior infarct , age undetermined Anterolateral infarct , age undetermined Abnormal ECG Confirmed by ALBA LAUGHLIN, JAKE ([id number]), fan mail editor CRISTI ROOT ([id number]) on 12/25/2021 10:41:39 AM Referred By: DARI Confirmed By:JAKE WILLIS MD
--- NOTE | 2021-12-21 10:45 | CT_ITS ---
STUDY: CT BRAIN WITHOUT CONTRAST REASON FOR EXAM: Male, 76 years old. syncope today hitting left side of head, blood thinners, dementia, hypertension. RADIATION DOSAGE (If Supplied By Facility): CTDIvol = ( 44.99 ) mGy, DLP = ( 796.11 ) mGycm TECHNIQUE: Transaxial CT imaging of the brain was performed without administration of intravenous contrast material. Individualized dose optimization techniques were used for this CT. COMPARISON: 02/21/2020 FINDINGS: Normal soft tissue structures. Normal calvarium. Normal size ventricles and extra-axial spaces for the patient''s age. Normal white matter tracts of the cerebral hemispheres. Normal basal ganglia and thalami. Normal brainstem. Normal cerebellum. There is no intracranial hemorrhage. There are no findings of an acute ischemic infarction. There is mucoperiosteal inflammatory disease of the left maxillary sinus consistent with mild chronic sinusitis. CT/Brain/Head without Contrast IMPRESSION: No acute intracranial hemorrhage or mass effect. Electronically Signed: Terry Doty MD ([place]) at 11:18 EDT ,
--- NOTE | 2021-12-21 10:46 | EX.ED.DYSGE1 ---
HPI History of Present Illness Chief Complaint: Syncope Informant: patient and spouse/S.O. Onset/Context/Timing Onset: Today Context: Sudden Onset Timing: Continuous Current Severity: Mild Maximum Severity: Moderate Narrative Narrative: 76-year-old male extensive past medical history of diabetes, A. fib on Eliquis, hypertension. Patient's had syncopal episodes in the past. I do not believe he had any inpatient work-up performed. Today he went into the restroom. He checked his blood sugar so was 113 he was feeling fine he sat down on the toilet said the room started spinning and he passed out. heard him fall she ran inside he was on the floor unconscious. Said he was probably unconscious for less than 1 minute. There was no seizure activity. He then woke up. On Saturday he had some nausea and vomiting. Since then he has felt well. He disposed to have a cardiac catheterization done earlier this week but had to be canceled due to him not feeling well on Saturday. He denies any chest pain. Prior similar symptoms: Yes Recent Illness/Hospitalization: No PFSH [facility] Medical History Acute respiratory insufficiency Ambulates with cane Arthritis Asthma Asymptomatic hypertensive urgency Atrial fibrillation with RVR Back pain Bronchitis Cardiology follow-up encounter Colitis Concussion Covid-19 COVID-19 virus infection CPAP (continuous positive airway pressure) dependence Dementia Diabetes Diverticula of colon DM2 (diabetes mellitus, type 2) Essential hypertension Excessive bleeding Former smoker Gastric reflux History of atrial fibrillation History of echocardiogram History of edema History of renal disease History of steroid therapy History of stress test Hyperlipidemia Hypertensive urgency Inflammatory bowel disease Injury of head and neck Intractable pain Kidney stones Loss of consciousness NSVT (nonsustained ventricular tachycardia) SUPA (obstructive sleep apnea) Paroxysmal atrial fibrillation Pulmonary hypertension Renal colic on left side Rheumatoid aortitis Rheumatoid arthritis Rhinovirus Sepsis Severe acute respiratory syndrome coronavirus 2 (SARS-CoV-2) infection ruled out Severe sepsis Sleep apnea SOB (shortness of breath) Ureterolithiasis Wears dentures Wears glasses Wears hearing aid Home Medications infliximab-dyyb 100 mg IV .COMPLEX 02/18/17 [History Last Taken 08/04/18] esomeprazole magnesium 20 mg PO DAILY 04/15/17 [History Last Taken 08/16/21] glimepiride 2 mg PO DAILY 01/22/18 [History Last Taken 06/22/20] zywvpqkm-vjt-DC-lycopen-lutein 1 ea PO DAILY 09/17/18 [History Last Taken 06/22/20] calcium carbonate 600 mg-vitamin D3 20 mcg (800 unit) tablet 1 tab PO DAILY 06/02/19 [History Last Taken 06/22/20] duloxetine 60 mg capsule,delayed release 60 mg PO DAILY 06/02/19 [History Last Taken 06/22/20] gabapentin 600 mg tablet 600 mg PO BID tab 06/02/19 [History Last Taken 08/16/21] lisinopril 30 mg tablet 30 mg PO BID tab 02/08/21 [History Last Taken 08/16/21] buspirone 7.5 mg PO BID 04/12/21 [History Last Taken Unknown] carvedilol 25 mg tablet 25 mg PO BID #180 tab 05/02/21 [Rx Last Taken 08/16/21] isosorbide mononitrate 60 mg tablet,extended release 24 hr 60 mg PO BID #60 tab 07/27/21 [Rx Last Taken Unknown] albuterol sulfate 2 puff INHALATION Q6H PRN 08/09/21 [History Last Taken Unknown] furosemide 20 mg tablet 20 mg PO DAILY #90 tab 09/06/21 [Rx Last Taken Unknown] amiodarone 200 mg tablet 100 mg PO DAILY tab 09/26/21 [History Last Taken Unknown] rosuvastatin 20 mg tablet 20 mg PO DAILY #90 tab 11/21/21 [Rx Last Taken Unknown] apixaban 5 mg tablet 5 mg PO BID #180 tab 11/22/21 [Rx Last Taken Unknown] potassium chloride 10 mEq tablet,extended release(part/cryst) 10 meq PO DAILY #90 tab 11/22/21 [Rx Last Taken Unknown] amlodipine 2.5 mg tablet 2.5 mg PO DAILY #30 tab 12/13/21 [Rx Last Taken Unknown] hydralazine 100 mg tablet 100 mg PO BID tab 12/13/21 [History Last Taken Unknown] omega-3 fatty acids 1,000 mg PO BID cap 12/13/21 [History Last Taken Unknown] Allergy/AdvReac Type Severity Reaction Status Date / Time aspirin Allergy Severe Mouth Verified 12/21/21 10:24 swelling donepezil [From Aricept] AdvReac Severe Swelling Verified 12/21/21 10:24 minoxidil AdvReac Severe swelling Verified 12/21/21 10:24 morphine AdvReac Severe UNABLE TO Verified 12/21/21 10:24 URINATE Family History Mother Heart disease Diabetes Father Heart disease Lung disease Brother Heart disease Lung disease Cancer prostate, pancreatic Sister Diabetes Cancer uterine Surgical History Cervical vertebral fusion History of back surgery History of bilateral knee replacement History of removal of cyst Hx of colectomy Hx of cystoscopy Hx of surgical procedure Social History Smoking Status: Former smoker how long ago did patient quit smokin, 2ppd second hand exposure: Yes alcohol intake: never substance use type: does not use caffeine: Yes Type: coffee Number of servings: 2 ROS ROS ED ROS Narrative Syncope today. Recent nausea and vomiting. Review of Systems ROS Unobtainable: Denies due to encephalopathy Constitutional Constitutional ED: Denies fever(s) Eyes Eyes: Denies change in vision ENT ENT ED: Denies ear pain Cardiovascular Cardiovascular: Denies chest pain Respiratory/Chest Respiratory/Chest: Denies dyspnea Gastrointestinal Gastrointestinal: Reports nausea and vomiting; Denies abdominal pain, diarrhea or melena Genitourinary Genitourinary ED: Denies dysuria Musculoskeletal Musculoskeletal: Denies myalgias Integumentary Denies rash Neurologic Neurologic: Reports headache(s) Psychiatric Psychiatric: Denies depression Endocrine Endocrinology: Denies polyuria Allergic/Immunologic Allergic/Immunologic ED: Denies urticaria EXAM Physical Exam Narrative Exam Narrative: 76-year-old male no acute distress. Vital signs stable. Initial blood pressure 209/105. He does not look septic or toxic. Currently is no acute distress. at bedside. H EENT exam pupils round reactive light extremities are intact. No facial trauma. Is a abrasion contusion on his left forehead. No laceration. No bleeding. Pupils round reactive light. Normal speech. Moist use membranes. Neck nontender. Well-healed cervical surgery in the past. Lungs clear to auscultation. Heart regular rhythm rate about 90 no murmur. Abdomen soft nontender normal bowel sounds no peritoneal signs. Patient is moving all 4 extremities. Is unable abrasion and contusion on his left shoulder. He is able to do range of motion of his left shoulder. Left elbow and wrist and hand are nontender. He is equal symmetrical guide travel strength. Dorsi plantarflexion intact. He is awake and alert. No focal motor deficits. Const Vital Signs: 12/21/21 10:22 12/21/21 11:17 12/21/21 11:33 Temperature 97.6 F L Temperature Source Temporal Pulse Rate 94 Pulse Rate [Lying] 72 Pulse Rate [Sitting (for 1 minute prior to obtaining)] 69 Pulse Rate [Standing (for 1 minute prior to obtaining)] 65 Respiratory Rate 16 Blood Pressure 209/105 H Blood Pressure [Lying] 178/114 H Blood Pressure [Sitting (for 1 minute prior to obtaining)] 192/112 H Blood Pressure [Standing (for 1 minute prior to obtaining)] 172/97 H Blood Pressure Mean 139 Blood Pressure Mean [Lying] 135 Blood Pressure Mean [Sitting (for 1 minute prior to obtaining)] 138 Blood Pressure Mean [Standing (for 1 minute prior to obtaining)] 122 Pulse Ox 94 91 Oxygen Delivery Method Room Air Room Air 12/21/21 12:55 Temperature Temperature Source Pulse Rate 84 Pulse Rate [Lying] Pulse Rate [Sitting (for 1 minute prior to obtaining)] Pulse Rate [Standing (for 1 minute prior to obtaining)] Respiratory Rate 16 Blood Pressure 143/103 H Blood Pressure [Lying] Blood Pressure [Sitting (for 1 minute prior to obtaining)] Blood Pressure [Standing (for 1 minute prior to obtaining)] Blood Pressure Mean 116 Blood Pressure Mean [Lying] Blood Pressure Mean [Sitting (for 1 minute prior to obtaining)] Blood Pressure Mean [Standing (for 1 minute prior to obtaining)] Pulse Ox 98 Oxygen Delivery Method Room Air Positive well nourished, well developed and obese; Negative for cachectic, contractures or unkempt General Appearance ED: well developed and NAD; Negative for unkempt, cachectic, contractures, cyanotic or diaphoretic Nutritional Appearance: obese; Negative for cachectic HEENT Reports moist mucous membranes trauma and tenderness Eyes PERRL and EOMs intact bilaterally Neck no lymphadenopathy and supple Chest Wall inspection of chest normal and palpation of chest normal Resp normal respiratory effort and clear to auscultation bilaterally GI normal to inspection, nondistended, normoactive bowel sounds, non-tender, non-distended and no masses Inspection: Negative for abdominal distention Auscultation: normoactive bowel sounds Palpation: soft; Negative for tender, guarding or rebound tenderness present Back/Spine no CVA tenderness General Back: Negative for CVA tenderness Cervical Spine: Negative for cervical spine tenderness Thoracic Spine / Upper Back: Negative for thoracic spinal tenderness Extremity normal to inspection Extremity Narrative: Contusion left shoulder mildly tender. Normal range of motion. No deformity. General Extremety ED: Negative for edema or tenderness General Extremity: Negative for edema Neuro oriented x3 Sensorium / Orientation: alert; Negative for orientation impaired, lethargic or stuporous Motor Exam: strength 5/5 throughout Psych mental status grossly normal Appearance: Negative for unkempt Mood & Affect: Negative for depressed or tearful Skin no rashes or lesions noted and no wounds Skin Narrative: Left shoulder abrasion and contusion. Left lateral scalp abrasion and contusion. MDM MDM MDM Narrative Medical decision making narrative: 76-year-old male with a syncopal episode. He will undergo a cardiac evaluation. Also CT of his brain due to him being on Eliquis and hitting his head. Most likely does not need to be admitted for further evaluation of the syncope. And possibly undergo a cardiac catheterization that he was scheduled to have earlier this week. Repeat exam patient is doing well at 1:25 PM. I went over test results with him and his . He will be admitted to the hospital. I am but obtain an x-ray of his left shoulder to rule out a nondisplaced fracture. Most likely is a contusion. Hospitalist is on page. Lab Data Attestation: I reviewed the patient's lab results. Lab results narrative: CBC shows a white count 9. H&H 15 and 46. Electrolytes unremarkable gap of 5 BUN of 31 creatinine 1.89. Glucose 162. Troponin normal at 15. CAT scan no acute process. No bleed. Read by the radiologist and reviewed by me. Labs: Laboratory Results - last 24 hr 12/21/21 12/21/21 10:40 10:40 WBC 9.0 RBC 5.08 Hgb 15.4 Hct 46.5 MCV 91.5 MCH 30.3 MCHC 33.1 RDW Std Deviation 51.7 H RDW Coeff of Azeem 15.3 H Plt Count 232 MPV 11.4 Immature Gran % (Auto) 0.300 Neut % (Auto) 61.5 Lymph % (Auto) 27.3 [place] % (Auto) 8.8 Eos % (Auto) 1.7 Baso % (Auto) 0.4 Absolute Neuts (auto) 5.6 Absolute Lymphs (auto) 2.46 Nucleated RBC % 0 Sodium 137 Potassium 3.8 Chloride 107 Carbon Dioxide 25.0 Anion Gap 5 BUN 31 H Creatinine 1.89 H Estim Creat Clear Calc 28.47 Est GFR (MDRD) Af Amer 45 L Est GFR (MDRD) Non-Af 37 L BUN/Creatinine Ratio 16.4 Glucose 162 H Calcium 9.3 Troponin I High Sens 15 Radiography Chest X-Ray - ED: 1 View, Lungs, Mediastinum, Bony Structures, No Acute Disease, Chronic Changes and Cardiomegaly Diagnostic Testing: Clinical Impression(s) from Imaging Studies Brain CT 12/21/21 10:45 IMPRESSION: No acute intracranial hemorrhage or mass effect. Electronically Signed: Terry Doty MD ([place]) at 11:18 EDT , Chest X-Ray 12/21/21 11:05 IMPRESSION: No acute abnormality is seen. Electronically Signed: Shad Macias MD at 11:30 EDT , Rhythm Strip Rhythm Strip: Sinus Rhythm Rate: 85 Ectopy: None EKG Initial EKG: Attestation: I personally reviewed and interpreted this EKG as follows: Interpretation: Sinus Rhythm and No Acute Injury Pattern Comments: Normal sinus rhythm rate 85 no acute signs of CO nor ischemia nor dysrhythmia. Discharge Plan Dx/Rx/DC Orders Clinical Impression: Syncope, Paroxysmal atrial fibrillation, Diabetes, Closed head injury, Chronic anticoagulation, Contusion of shoulder Disposition Disposition: Acute Care [facility]
--- NOTE | 2021-12-21 11:05 | RAD_ITS ---
STUDY: X-RAY CHEST REASON FOR EXAM: Male, 76 years old. Chest pain TECHNIQUE: Single AP portable view of the chest. COMPARISON: Comparison is made with prior study 12/13/2021. FINDINGS: EKG electrodes are seen. The lungs are clear and expanded. There is no demonstrated pleural abnormality. Normal size heart. Normal mediastinum and corina. Normal visualized pulmonary arteries. There is atherosclerotic tortuosity of the aortic arch and descending thoracic aorta. There are diffuse degenerative changes of the visualized thoracic spine. Normal visualized ribs, clavicles, and shoulders. There is no demonstrated abnormality of the visualized soft tissue structures of the upper abdomen. RAD/Chest 1 View (Portable) IMPRESSION: No acute abnormality is seen. Electronically Signed: Shad Macias MD at 11:30 EDT ,
[2021-12-21 11:11] LABS: Absolute Lymphocyte Count 2.46 X10^3/uL (0.83-4.51); Absolute Neutrophil Count 5.6 X10^3/uL (2.0-7.7); Basophil# 0.04 X10^3/uL; Basophil% 0.4 % (0-1); Eosinophil# 0.15 X10^3/uL; Eosinophils% 1.7 % (0-5); Hematocrit 46.5 % (40-54); Hemoglobin 15.4 g/dL (13.0-16.5); Lymphocyte # 2.46 X10^3/ul (0.83-4.51); Lymphocyte % 27.3 % (19-41); Mean Corp Hgb Conc 33.1 g/dL (32-36); Mean Corpuscular Hgb 30.3 pg (27.0-32.0); Mean Corpuscular Volume 91.5 fL (80-94); Mean Platelet Vol. 11.4 fl (6.2-12.0); Monocyte# 0.79 X10^3/uL; Monocyte% 8.8 % (0-10); NRBC Flagged by Analyzer 0 % (0-5); Neutrophil # 5.55 X10^3/uL (2.7-7.7); Neutrophil % 61.5 % (47-70); Platelet Count 232 K/mm3 (150-450); RBC Distribution Width CV 15.3 % (11.6-14.6); RBC Distribution Width SD 51.7 fl (35.1-43.9); Red Blood Count 5.08 M/mm3 (4.6-6.2)
[2021-12-21 11:30] LABS: Anion Gap 5 (5-15); BUN 31 mg/dL (7-18); BUN/Creat Ratio 16.4 RATIO (10-20); Calcium,Total 9.3 mg/dL (8.5-10.1); Chloride 107 mmol/L (98-107); Creatinine, Serum 1.89 mg/dL (0.70-1.30); EST Glomerular Filtration Rate 37 mL/min (>60); Est Glom Filt Rate - Afr Amer 45 mL/min (>60); Estimated Creatinine Clearance 28.47 ml/min; Glucose 162 mg/dL (74-106); Potassium 3.8 mmol/L (3.5-5.1); Sodium Level 137 mmol/L (136-145); Troponin-I HS 15 pg/mL (3.0-78.0)
--- NOTE | 2021-12-21 13:27 | RAD_ITS ---
STUDY: X-RAY - LEFT SHOULDER REASON FOR EXAM: Male, 76 years old. fall TECHNIQUE: 4 view(s) of the shoulder. COMPARISON: None. FINDINGS: There is mild degenerative arthrosis of the glenohumeral articulation. Ossific density inferior to the glenohumeral joint likely represents intra-articular loose body. There is degenerative arthrosis of the acromioclavicular joint without inferior osseous spur formation. Normal acromion. Normal humeral head and visualized proximal humerus. The soft tissue structures are unremarkable. Normal visualized pulmonary apex. RAD/Shoulder min 2 Views IMPRESSION: No fracture or malalignment. Degenerative changes, as above. Electronically Signed: Terry Doty MD ([place]) at 14:33 EDT ,
--- NOTE | 2021-12-21 13:29 | HP.PCM.HOS_ITS ---
HPI - General General Date of Admission: 12/21/21 HPI Narrative MEGAN HOLLOWAY, is a 76 M with an extensive PMH as outlined who presents with a complaint of syncope. He went to the bathroom and said he was feeling well. He sat on the toilet and started feeling dizzy and lightheaded. next thing he realised he was on the floor. His heard him fall and found him unresponsive. says he was unresponsive for about one minute. She didnt witness any seizure activity. He was suppsed to get a cardiac cath 2 days ago, but this was postponed because he wasnt feeling well. He denied any headache, chest pain, palpitations, dizziness, nausea, vomiting or diarrhea. Review of systems is otherwise negative. Per his , he was also having intermittent jerking motions of his extremities, mainly his upper extremities, which was new for him. He didnt have any urinary incontinence or fecal incontinence or drowsiness. Vitals in the ED were BP of 1143/103, MS of 84, RR of 16 and oxygen sats of 98% on room air. CBC was unremarkable, and BMP showed Cr of 1.89 with sodium of 137, K of 3.8 and initial troponin of 15. CT of the brain was negative for any acute intracranial pathology. CXR showed no acute cardiopulmonary process. He is being admitted to be managed for syncope. [facility] Medical History Acute respiratory insufficiency Ambulates with cane Arthritis Asthma Asymptomatic hypertensive urgency Atrial fibrillation with RVR Back pain Bronchitis Cardiology follow-up encounter Colitis Concussion Covid-19 COVID-19 virus infection CPAP (continuous positive airway pressure) dependence Dementia Diabetes Diverticula of colon DM2 (diabetes mellitus, type 2) Essential hypertension Excessive bleeding Former smoker Gastric reflux History of atrial fibrillation History of echocardiogram History of edema History of renal disease History of steroid therapy History of stress test Hyperlipidemia Hypertensive urgency Inflammatory bowel disease Injury of head and neck Intractable pain Kidney stones Loss of consciousness NSVT (nonsustained ventricular tachycardia) SUPA (obstructive sleep apnea) Paroxysmal atrial fibrillation Pulmonary hypertension Renal colic on left side Rheumatoid aortitis Rheumatoid arthritis Rhinovirus Sepsis Severe acute respiratory syndrome coronavirus 2 (SARS-CoV-2) infection ruled out Severe sepsis Sleep apnea SOB (shortness of breath) Ureterolithiasis Wears dentures Wears glasses Wears hearing aid Home Medications glimepiride 2 mg PO DAILY 01/22/18 [History Last Taken 12/20/21] oqcmxcov-yhq-KM-lycopen-lutein 1 ea PO DAILY 09/17/18 [History Last Taken 12/20/21] duloxetine 60 mg capsule,delayed release 60 mg PO DAILY 06/02/19 [History Last Taken 12/21/21] gabapentin 600 mg tablet 600 mg PO BID tab 06/02/19 [History Last Taken 12/21/21] lisinopril 30 mg tablet 30 mg PO BID tab 02/08/21 [History Last Taken 12/21/21] buspirone 7.5 mg PO BID 04/12/21 [History Last Taken 12/21/21] carvedilol 25 mg tablet 25 mg PO BID #180 tab 05/02/21 [Rx Last Taken 12/21/21] isosorbide mononitrate 60 mg tablet,extended release 24 hr 60 mg PO BID #60 tab 07/27/21 [Rx Last Taken 12/21/21] albuterol sulfate 2 puff INHALATION Q6H PRN 08/09/21 [History Last Taken Unknown] furosemide 20 mg tablet 20 mg PO DAILY #90 tab 09/06/21 [Rx Last Taken 12/21/21] rosuvastatin 20 mg tablet 20 mg PO DAILY #90 tab 11/21/21 [Rx Last Taken 12/20/21] apixaban 5 mg tablet 5 mg PO BID #180 tab 11/22/21 [Rx Last Taken 12/21/21] potassium chloride 10 mEq tablet,extended release(part/cryst) 10 meq PO DAILY #90 tab 11/22/21 [Rx Last Taken 12/21/21] amlodipine 2.5 mg tablet 2.5 mg PO DAILY #30 tab 12/13/21 [Rx Last Taken 2] hydralazine 100 mg tablet 100 mg PO BID tab 12/13/21 [History Last Taken 12/21/21] omega-3 fatty acids 1,000 mg PO BID cap 12/13/21 [History Last Taken 12/21/21] amiodarone 100 mg PO DAILY 12/21/21 [History Last Taken 12/21/21] calcium carbonate-vitamin D3 [Calcium + D] 1 tab PO DAILY 12/21/21 [History Last Taken 12/21/21] doxycycline hyclate 100 mg PO BID 12/21/21 [History Last Taken 12/21/21] esomeprazole magnesium [Nexium] 20 mg PO DAILY 12/21/21 [History Last Taken 12/20/21] Allergy/AdvReac Type Severity Reaction Status Date / Time aspirin Allergy Severe Mouth Verified 12/21/21 10:24 swelling donepezil [From Aricept] AdvReac Severe Swelling Verified 12/21/21 10:24 minoxidil AdvReac Severe swelling Verified 12/21/21 10:24 morphine AdvReac Severe UNABLE TO Verified 12/21/21 10:24 URINATE Family History Mother Heart disease Diabetes Father Heart disease Lung disease Brother Heart disease Lung disease Cancer prostate, pancreatic Sister Diabetes Cancer uterine Surgical History Cervical vertebral fusion History of back surgery History of bilateral knee replacement History of removal of cyst Hx of colectomy Hx of cystoscopy Hx of surgical procedure Social History Smoking Status: Former smoker how long ago did patient quit smokin, 2ppd second hand exposure: Yes alcohol intake: never substance use type: does not use caffeine: Yes Type: coffee Number of servings: 2 ROS Constitutional Constitutional: Reports malaise and weakness; Denies anorexia, chills, fatigue or fever(s) Eyes Eyes: Denies change in vision ENT HEENT: Denies dysphagia, headache(s), hearing loss, nasal congestion or sore throat Cardiovascular Cardiovascular: Denies chest pain, dyspnea on exertion, edema, lightheadedness, orthopnea or palpitations Respiratory/Chest Respiratory/Chest: Denies cough, dyspnea, productive cough, shortness of breath at rest or shortness of breath with exertion Gastrointestinal Gastrointestinal: Denies abdominal pain, dyspepsia, nausea or vomiting Genitourinary Genitourinary: Denies burning urination, difficulty urinating or dysuria Musculoskeletal Musculoskeletal: Denies arthralgias or joint pain Neurologic Neurologic: Reports dizziness, seizure-like activity and tremor(s); Denies abnormal gait, abnormal speech, confusion, disequilibrium, focal weakness, headache(s), numbness or paresthesias Psychiatric Psychiatric: Denies anxiety Hematologic/Lymphatic Hematologic/Lymphatic: Denies anemia Vital Signs Vital Signs Vital Signs: 12/21/21 10:22 12/21/21 11:17 12/21/21 11:33 Temperature 97.6 F L Temperature Source Temporal Pulse Rate 94 Pulse Rate [Lying] 72 Pulse Rate [Sitting (for 1 minute prior to obtaining)] 69 Pulse Rate [Standing (for 1 minute prior to obtaining)] 65 Respiratory Rate 16 Blood Pressure 209/105 H Blood Pressure [Lying] 178/114 H Blood Pressure [Sitting (for 1 minute prior to obtaining)] 192/112 H Blood Pressure [Standing (for 1 minute prior to obtaining)] 172/97 H Blood Pressure Mean 139 Blood Pressure Mean [Lying] 135 Blood Pressure Mean [Sitting (for 1 minute prior to obtaining)] 138 Blood Pressure Mean [Standing (for 1 minute prior to obtaining)] 122 Pulse Ox 94 91 Oxygen Delivery Method Room Air Room Air 12/21/21 12:55 Temperature Temperature Source Pulse Rate 84 Pulse Rate [Lying] Pulse Rate [Sitting (for 1 minute prior to obtaining)] Pulse Rate [Standing (for 1 minute prior to obtaining)] Respiratory Rate 16 Blood Pressure 143/103 H Blood Pressure [Lying] Blood Pressure [Sitting (for 1 minute prior to obtaining)] Blood Pressure [Standing (for 1 minute prior to obtaining)] Blood Pressure Mean 116 Blood Pressure Mean [Lying] Blood Pressure Mean [Sitting (for 1 minute prior to obtaining)] Blood Pressure Mean [Standing (for 1 minute prior to obtaining)] Pulse Ox 98 Oxygen Delivery Method Room Air Weight Weight: 220 lb Body Mass Index (BMI) 36.6 Physical Exam Const alert, oriented x3 and no apparent distress General Appearance: cooperative HEENT normocephalic, head/scalp atraumatic and hearing grossly normal bilaterally Eyes PERRL, EOMs intact bilaterally and conjunctivae normal Neck no lymphadenopathy, supple and no JVD Resp normal respiratory effort, no retractions, no use of accessory muscles and clear to auscultation bilaterally Cardio regular rate, regular rhythm, S1 normal heart sound, S2 normal heart sound and no murmurs GI normal to inspection, nondistended, normoactive bowel sounds, soft to palpation, non-tender and non-distended Extremity normal to inspection, full ROM and no clubbing, cyanosis or edema Neuro oriented x3 and CN's II-XII intact bilaterally Neuro Narrative: anxious, having what appears to be persistent myoclonic jerks of upper extremities and occasionally of his legs. no focal weakness Sensorium / Orientation: awake and alert Psych Mood & Affect: anxious Results Lab / Micro Data Result Diagrams: 12/21/21 10:40 12/21/21 10:40 Labs: Laboratory Results - last 24 hr 12/21/21 10:40: WBC 9.0, RBC 5.08, Hgb 15.4, Hct 46.5, MCV 91.5, MCH 30.3, MCHC 33.1, RDW Std Deviation 51.7 H, RDW Coeff of Azeem 15.3 H, Plt Count 232, MPV 11.4, Immature Gran % (Auto) 0.300, Neut % (Auto) 61.5, Lymph % (Auto) 27.3, [place] % (Auto) 8.8, Eos % (Auto) 1.7, Baso % (Auto) 0.4, Absolute Neuts (auto) 5.6, Absolute Lymphs (auto) 2.46, Nucleated RBC % 0 12/21/21 10:40: Sodium 137, Potassium 3.8, Chloride 107, Carbon Dioxide 25.0, A nion Gap 5, BUN 31 H, Creatinine 1.89 H, Estim Creat Clear Calc 28.47, Est GFR (MDRD) Af Amer 45 L, Est GFR (MDRD) Non-Af 37 L, BUN/Creatinine Ratio 16.4, Glucose 162 H, Calcium 9.3, Troponin I High Sens 15 Rhythm Strip Rhythm Strip: Sinus Rhythm Rate: 85 Ectopy: None Radiology Impression Brain CT 12/21/21 10:45 IMPRESSION: No acute intracranial hemorrhage or mass effect. Electronically Signed: Terry Doty MD ([place]) at 11:18 EDT , Chest X-Ray 12/21/21 11:05 IMPRESSION: No acute abnormality is seen. Electronically Signed: Shad Macias MD at 11:30 EDT , Assessment & Plan Assessment/Plan (1) Syncope: (2) Myoclonic jerking: PLAN: #Syncope * etiology of syncope is unclear. he says he has had several such syncopal episodes in the past few months * sounds like a vasovagal event, as he had been sitting on the commode * CT of the brain was negative. * will admit to PCU with telemetry * orthostatics were negative * hydrate gently with IVF * consult cardiology as he was due to get a cardiac cath to evaluate the syncope * 2D echo * fall precautions * #Myoclonic jerks * Having jerking motions of upper extremities. He states this is new for him. He is conscious throughout the jerking so I doubt this is a seizure * Will have a consult neurology. Potassium is within normal limits will check magnesium kidney function is also within normal limits. * PT OT on board. Fall precautions. * #History of A. fib: On amiodarone #Hyperlipidemia: On statin #History of rheumatoid arthritis: stable #Hypertension: * Blood pressure markedly elevated at the time I reviewed him but subsequently came down to 139/100. * says his blood pressure has been difficult to control. * resume BP meds. IV hydralazine prn * on hydralazine, carvedilol and amlodipine as well as furosemide * #Type 2 diabetes mellitus: Hold oral medications. Insulin sliding scale. Accu- Cheks AC at bedtime. DVT prophylaxis; not indicated as pateint is on eliquis Code status: full code * Patient counseled extensively about different types of CODE STATUS including full code, DNR CCA and DNR CCA. Patient elects to be full code. Total [id number] time 17 minutes. Charges/Coding Visit Charges Inpatient E&M: 57791 Init Hosp L3 Procedures Hospitalists Procedures: 75732 Advncd Care Plan 30 Min
--- NOTE | 2021-12-21 14:38 | CM.ED ---
RN CM Assessment Introduced role of RN CM to patient Natasha Gimenez at bedside as patient was getting wheeled to xray. agrees to participate in RN CM Assessment. ?Care providers, pharmacy, and demographics verified. Admit Dx: OBS for Syncope Re-Admit: No Barriers/Issues: None. Patient had a cardiac cath planned earlier in the week but was canceled d/t patient not feeling well. Patient has had Syncopal episode in the past where he needed to be transferred to [place] d/t hitting head/trauma and had amnesia for approx 4 days per but they never found anything. They have a dtr that lives in [place] and works in Medical office. A son that from lung CA, and 4 other sons. PCP: Jayme Yang Specialists: Cardio- Zoie, Pulm- Rian, Uro- Marsha, Nephro- Josesito, Rheum- Farshad Preferred Pharmacy: [facility] Insurance: [employer] [facility] Rx Benefit:?Yes LNOK: Natasha Gimenez LW/HPOA: States has both completed and Natasha Gimenez in [place], dtr is secondary. Living Arrangements:? Lives with in a H, has ramp access ADL?s: Patient ambulates with straight cane, Independent with ADLs Transportation: Both patient and drive DME: Home O2 2-4lpm prn concentrator and portable tanks that are full with [employer]. CPAP. Glucometer, Straight cane, Rollator, Standard no wheel walker, Pulse Ox. HHC: None SNF: None Goal: Home and does not think will have any needs, issues or concerns with going home unless something changes. Aware RNCM will continue to follow should any needs arise. DC PLAN: Home with no anticipated needs identified at this time. LILIANA Gilliam
--- NOTE | 2021-12-21 14:49 | PCM.CONS.C ---
Documented by User: ADRY Perez 12/21/21 16:25 Assessment & Plan Assessment/Plan (1) Syncope: (2) Abnormal stress test: (3) NSVT (nonsustained ventricular tachycardia): (4) Aortic stenosis: (5) Paroxysmal atrial fibrillation: (6) Essential hypertension: PLAN: Pt had syncope and an abnormal stress that we were in the process of pursuing a diagnostic heart cath. With his syncope event today, would like to pursue his heart cath during this admission. With his renal insuff will hydrate pt overnight. It is noted that he did take his eliquis this morning, will hold eliquis. Feel that it is okay to pursue a heart cath from the right radial. if this can not be accessed will need to consider postponing to pursue at a later date after his eliquis has been held for 3 days. Pt was not orthostatic positive. Do not feel that this contributed to his syncope. Neurology was consulted for he new onset of myoclonic jerks. Pt does have elevated BP readings, for now will monitor. may need to adjust medications. In regards to his Afib: pt is in SR currently, he will continue with his BB, amiodarone, his eliquis is being held. HPI Consult Data Date of Consult: 12/21/21 HPI Narrative HPI Narrative: MEGAN HOLLOWAY, is a 76 M who presented to the ED for syncope. He has a history of syncope, paroxysmal atrial fibrillation, aortic valve stenosis, hyperlipidemia, hypertension, pulmonary hypertension, and SUPA. He had an abnormal stress test 11/22/21. He was seen in our office on 12/13/21 for this and scheduled for a heart cath next month on an Op basis. In August he was noted to have a syncopal event that he was seen in the office for. He underwent a 30 day event monitor this demonstrated Sinus rhythm with one 4 beat wide-complex rhythm potentially compatible with a 4 beat episode of ventricular tachycardia of uncertain significance. Because of this he underwent a stress test which demonstrated he possibility of an area of myocardial ischemia in the inferolateral segments this he was scheduled for an OP diagnostic heart cath. This was supposed to be done 2 days ago, however it was postponed d/t him not feeling well. This morning, he walked to the restroom, felt fine, then the room started to spin and he passed out. noted that he was unresponsive for less than one minute. Bp was noted to be elevated while in the ER. He was admitted for evaluation of his syncope. Of note he has now developed jerking movements which are new. FORMERLY [facility] Medical History Acute respiratory insufficiency Ambulates with cane Arthritis Asthma Asymptomatic hypertensive urgency Atrial fibrillation with RVR Back pain Bronchitis Cardiology follow-up encounter Colitis Concussion Covid-19 COVID-19 virus infection CPAP (continuous positive airway pressure) dependence Dementia Diabetes Diverticula of colon DM2 (diabetes mellitus, type 2) Essential hypertension Excessive bleeding Former smoker Gastric reflux History of atrial fibrillation History of echocardiogram History of edema History of renal disease History of steroid therapy History of stress test Hyperlipidemia Hypertensive urgency Inflammatory bowel disease Injury of head and neck Intractable pain Kidney stones Loss of consciousness NSVT (nonsustained ventricular tachycardia) SUPA (obstructive sleep apnea) Paroxysmal atrial fibrillation Pulmonary hypertension Renal colic on left side Rheumatoid aortitis Rheumatoid arthritis Rhinovirus Sepsis Severe acute respiratory syndrome coronavirus 2 (SARS-CoV-2) infection ruled out Severe sepsis Sleep apnea SOB (shortness of breath) Ureterolithiasis Wears dentures Wears glasses Wears hearing aid Home Medications glimepiride 2 mg PO DAILY 01/22/18 [History Last Taken 12/20/21] pnmgadnw-scs-ZW-lycopen-lutein 1 ea PO DAILY 09/17/18 [History Last Taken 12/20/21] duloxetine 60 mg capsule,delayed release 60 mg PO DAILY 06/02/19 [History Last Taken 12/21/21] gabapentin 600 mg tablet 600 mg PO BID tab 06/02/19 [History Last Taken 12/21/21] lisinopril 30 mg tablet 30 mg PO BID tab 02/08/21 [History Last Taken 12/21/21] buspirone 7.5 mg PO BID 04/12/21 [History Last Taken 12/21/21] carvedilol 25 mg tablet 25 mg PO BID #180 tab 05/02/21 [Rx Last Taken 12/21/21] isosorbide mononitrate 60 mg tablet,extended release 24 hr 60 mg PO BID #60 tab 07/27/21 [Rx Last Taken 12/21/21] albuterol sulfate 2 puff INHALATION Q6H PRN 08/09/21 [History Last Taken Unknown] furosemide 20 mg tablet 20 mg PO DAILY #90 tab 09/06/21 [Rx Last Taken 12/21/21] rosuvastatin 20 mg tablet 20 mg PO DAILY #90 tab 11/21/21 [Rx Last Taken 12/20/21] apixaban 5 mg tablet 5 mg PO BID #180 tab 11/22/21 [Rx Last Taken 12/21/21] potassium chloride 10 mEq tablet,extended release(part/cryst) 10 meq PO DAILY #90 tab 11/22/21 [Rx Last Taken 12/21/21] amlodipine 2.5 mg tablet 2.5 mg PO DAILY #30 tab 12/13/21 [Rx Last Taken 12/21/21] hydralazine 100 mg tablet 100 mg PO BID tab 12/13/21 [History Last Taken 12/21/21] omega-3 fatty acids 1,000 mg PO BID cap 12/13/21 [History Last Taken 12/21/21] amiodarone 100 mg PO DAILY 12/21/21 [History Last Taken 12/21/21] calcium carbonate-vitamin D3 [Calcium + D] 1 tab PO DAILY 12/21/21 [History Last Taken 12/21/21] doxycycline hyclate 100 mg PO BID 12/21/21 [History Last Taken 12/21/21] esomeprazole magnesium [Nexium] 20 mg PO DAILY 12/21/21 [History Last Taken 12/20/21] Allergy/AdvReac Type Severity Reaction Status Date / Time aspirin Allergy Severe Mouth Verified 12/21/21 10:24 swelling donepezil [From Aricept] AdvReac Severe Swelling Verified 12/21/21 10:24 minoxidil AdvReac Severe swelling Verified 12/21/21 10:24 morphine AdvReac Severe UNABLE TO Verified 12/21/21 10:24 URINATE Family History Mother Heart disease Diabetes Father Heart disease Lung disease Brother Heart disease Lung disease Cancer prostate, pancreatic Sister Diabetes Cancer uterine Surgical History Cervical vertebral fusion History of back surgery History of bilateral knee replacement History of removal of cyst Hx of colectomy Hx of cystoscopy Hx of surgical procedure Social History Smoking Status: Former smoker how long ago did patient quit smokin, 2ppd second hand exposure: Yes alcohol intake: never substance use type: does not use caffeine: Yes Type: coffee Number of servings: 2 ROS Constitutional Constitutional: Denies anorexia or chills ENT HEENT: Reports vertigo; Denies nasal congestion or neck pain Cardiovascular Cardiovascular: Reports dizziness and nausea; Denies chest pain, diaphoresis, dyspnea, orthostatic symptoms, palpitations or pedal edema Respiratory/Chest Respiratory/Chest: Denies dyspnea on exertion or wheezing Gastrointestinal Gastrointestinal: Denies abdominal pain, bloating or change in stool character Musculoskeletal Musculoskeletal: Reports arthralgias Neurologic Neurologic: Reports syncope and other Details: jerking movements is new ; Denies memory loss Physical Exam Const alert, oriented x3, average body habitus and healthy appearing HEENT normocephalic and moist oral mucous membranes External Ear: other Other Details: TAZLINA Eyes PERRL, EOMs intact bilaterally and conjunctivae normal Resp normal respiratory effort, no retractions and clear to auscultation bilaterally Cardio regular rate, regular rhythm, S1 normal heart sound, S2 normal heart sound, no murmurs, no rub, no gallops, no clicks, no JVD and peripheral pulses 2+ throughout GI normal to inspection, nondistended, normoactive bowel sounds and soft to palpation Neuro oriented x3, CN's II-XII intact bilaterally and moves all extremities Neuro Narrative: monoclinic jerking of upper extremities Risk Stratification Risk Stratification Applicable: Yes Age >/= 65: Yes >/= 3 CAD Risk Factors (HTN, HLD, DM, family hx of CAD, or current smoker): No Aspirin Use in the Past 7 Days: No Severe Angina (>/= episodes in 24 hours): No EKG ST Changes >/= 0.5mm: No Positive Cardiac Marker: No LEO Risk Stratification Score: 1 LEO % Risk: 5% Risk Charges/Coding Visit Charges Office Visits / Consults: 09375 IP Consult L4 Objective Data Vital Signs: Vital Signs Temp Pulse Resp BP Pulse Ox 97.5 F L 87 18 139/100 H 97 12/21/21 14:18 12/21/21 14:18 12/21/21 14:18 12/21/21 14:18 12/21/21 14:18 Oxygen Delivery Method Room Air Weight: 220 lb Body Mass Index (BMI) 36.6 Lab / Micro Data Result Diagrams: 12/21/21 10:40 12/21/21 10:40 Labs: Laboratory Results - last 24 hr 12/21/21 10:40: WBC 9.0, RBC 5.08, Hgb 15.4, Hct 46.5, MCV 91.5, MCH 30.3, MCHC 33.1, RDW Std Deviation 51.7 H, RDW Coeff of Azeem 15.3 H, Plt Count 232, MPV 11.4, Immature Gran % (Auto) 0.300, Neut % (Auto) 61.5, Lymph % (Auto) 27.3, [place] % (Auto) 8.8, Eos % (Auto) 1.7, Baso % (Auto) 0.4, Absolute Neuts (auto) 5.6, Absolute Lymphs (auto) 2.46, Nucleated RBC % 0 12/21/21 10:40: Sodium 137, Potassium 3.8, Chloride 107, Carbon Dioxide 25.0, Anion Gap 5, BUN 31 H, Creatinine 1.89 H, Estim Creat Clear Calc 28.47, Est GFR (MDRD) Af Amer 45 L, Est GFR (MDRD) Non-Af 37 L, BUN/Creatinine Ratio 16.4, Glucose 162 H, Calcium 9.3, Troponin I High Sens 15 Rhythm Strip Rhythm Strip: Sinus Rhythm Rate: 85 Ectopy: None Cardiology Labs/Tests 12/21/21 10:40: WBC 9.0, RBC 5.08, Hgb 15.4, Hct 46.5, MCV 91.5, MCH 30.3, MCHC 33.1, Plt Count 232, MPV 11.4, Immature Gran % (Auto) 0.300, Neut % (Auto) 61.5, Lymph % (Auto) 27.3, [place] % (Auto) 8.8, Eos % (Auto) 1.7, Baso % (Auto) 0.4, Absolute Neuts (auto) 5.6, Nucleated RBC % 0 12/21/21 10:40: Sodium 137, Potassium 3.8, Chloride 107, Carbon Dioxide 25.0, Anion Gap 5, BUN 31 H, Creatinine 1.89 H, Est GFR (MDRD) Af Amer 45 L, Est GFR (MDRD) Non-Af 37 L, BUN/Creatinine Ratio 16.4, Glucose 162 H, Calcium 9.3 Rhythm: SR EKG: ECHO 09/2021: Left ventricular systolic function is normal. The estimated ejection fraction is 65 %. Mild concentric left ventricular hypertrophy. The left atrium is mildly enlarged. There is mild to moderate mitral annular calcification. Extension of the mitral annular calcification onto the base of the posterior mitral valve leaflet. Mild focal mitral valve calcification of the anterior leaflet. Mild (1+) mitral valve insufficiency. Trivial tricuspid valve insufficiency. Mild aortic stenosis. Mild (1+) pulmonic valve insufficiency. Right ventricular systolic pressure estimated to be 33 mmHg. Diastolic function is indeterminate. Stress Test 11/21: 1. Rest and stress SPECT her nuclear imaging demonstrate myocardial perfusion changes potentially compatible with an are of stress-induced myocardial ischemia involving the distal inferolateral segments. 2. A gated Cardiolite study at peak stress was not obtained. Radiography Diagnostic Testing: Radiology Impression Brain CT 12/21/21 10:45 IMPRESSION: No acute intracranial hemorrhage or mass effect. Electronically Signed: Terry Doty MD (Brooks) at 11:18 EDT , Chest X-Ray 12/21/21 11:05 IMPRESSION: No acute abnormality is seen. Electronically Signed: Shad Macias MD at 11:30 EDT , Shoulder X-Ray 12/21/21 13:27 IMPRESSION: No fracture or malalignment. Degenerative changes, as above. Electronically Signed: Terry Doty MD ([place]oks) at 14:33 EDT , Documented by User: Dr. Makenna Naqvi MD 12/21/21 17:31 Assessment & Plan Assessment/Plan (1) Syncope: (2) Paroxysmal atrial fibrillation: (3) Asymptomatic hypertensive urgency: PLAN: I independently examined this patient, reviewed the current data including EKG cardiac markers cardiac telemetry as well as review his prior stress result And formulated cardiac care plan and recommendation as per midlevel documentation Patient is scheduled to undergo cardiac catheterization tomorrow by his primary millinery copyist Dr. Lino We will continue to monitor and follow-up this patient clinically HPI Consult Data Date of Consult: 12/21/21 [facility] Medical History Acute respiratory insufficiency Ambulates with cane Arthritis Asthma Asymptomatic hypertensive urgency Atrial fibrillation with RVR Back pain Bronchitis Cardiology follow-up encounter Colitis Concussion Covid-19 COVID-19 virus infection CPAP (continuous positive airway pressure) dependence Dementia Diabetes Diverticula of colon DM2 (diabetes mellitus, type 2) Essential hypertension Excessive bleeding Former smoker Gastric reflux History of atrial fibrillation History of echocardiogram History of edema History of renal disease History of steroid therapy History of stress test Hyperlipidemia Hypertensive urgency Inflammatory bowel disease Injury of head and neck Intractable pain Kidney stones Loss of consciousness NSVT (nonsustained ventricular tachycardia) SUPA (obstructive sleep apnea) Paroxysmal atrial fibrillation Pulmonary hypertension Renal colic on left side Rheumatoid aortitis Rheumatoid arthritis Rhinovirus Sepsis Severe acute respiratory syndrome coronavirus 2 (SARS-CoV-2) infection ruled out Severe sepsis Sleep apnea SOB (shortness of breath) Ureterolithiasis Wears dentures Wears glasses Wears hearing aid Home Medications glimepiride 2 mg PO DAILY 01/22/18 [History Last Taken 12/20/21] szdxyexz-rvi-VT-lycopen-lutein 1 ea PO DAILY 09/17/18 [History Last Taken 12/20/21] duloxetine 60 mg capsule,delayed release 60 mg PO DAILY 06/02/19 [History Last Taken 12/21/21] gabapentin 600 mg tablet 600 mg PO BID tab 06/02/19 [History Last Taken 12/21/21] lisinopril 30 mg tablet 30 mg PO BID tab 02/08/21 [History Last Taken 12/21/21] buspirone 7.5 mg PO BID 04/12/21 [History Last Taken 12/21/21] carvedilol 25 mg tablet 25 mg PO BID #180 tab 05/02/21 [Rx Last Taken 12/21/21] isosorbide mononitrate 60 mg tablet,extended release 24 hr 60 mg PO BID #60 tab 07/27/21 [Rx Last Taken 12/21/21] albuterol sulfate 2 puff INHALATION Q6H PRN 08/09/21 [History Last Taken Unknown] furosemide 20 mg tablet 20 mg PO DAILY #90 tab 09/06/21 [Rx Last Taken 12/21/21] rosuvastatin 20 mg tablet 20 mg PO DAILY #90 tab 11/21/21 [Rx Last Taken 12/20/21] apixaban 5 mg tablet 5 mg PO BID #180 tab 11/22/21 [Rx Last Taken 12/21/21] potassium chloride 10 mEq tablet,extended release(part/cryst) 10 meq PO DAILY #90 tab 11/22/21 [Rx Last Taken 12/21/21] amlodipine 2.5 mg tablet 2.5 mg PO DAILY #30 tab 12/13/21 [Rx Last Taken 12/21/21] hydralazine 100 mg tablet 100 mg PO BID tab 12/13/21 [History Last Taken 12/21/21] omega-3 fatty acids 1,000 mg PO BID cap 12/13/21 [History Last Taken 12/21/21] amiodarone 100 mg PO DAILY 12/21/21 [History Last Taken 12/21/21] calcium carbonate-vitamin D3 [Calcium + D] 1 tab PO DAILY 12/21/21 [History Last Taken 12/21/21] doxycycline hyclate 100 mg PO BID 12/21/21 [History Last Taken 12/21/21] esomeprazole magnesium [Nexium] 20 mg PO DAILY 12/21/21 [History Last Taken 12/20/21] Allergy/AdvReac Type Severity Reaction Status Date / Time aspirin Allergy Severe Mouth Verified 12/21/21 10:24 swelling donepezil [From Aricept] AdvReac Severe Swelling Verified 12/21/21 10:24 minoxidil AdvReac Severe swelling Verified 12/21/21 10:24 morphine AdvReac Severe UNABLE TO Verified 12/21/21 10:24 URINATE Family History Mother Heart disease Diabetes Father Heart disease Lung disease Brother Heart disease Lung disease Cancer prostate, pancreatic Sister Diabetes Cancer uterine Surgical History Cervical vertebral fusion History of back surgery History of bilateral knee replacement History of removal of cyst Hx of colectomy Hx of cystoscopy Hx of surgical procedure Social History Smoking Status: Former smoker how long ago did patient quit smokin, 2ppd second hand exposure: Yes alcohol intake: never substance use type: does not use caffeine: Yes Type: coffee Number of servings: 2 Lab / Micro Data Result Diagrams: 12/21/21 10:40 12/21/21 10:40
--- NOTE | 2021-12-21 15:19 | NURSING ---
This RN taking over care at this time
--- NOTE | 2021-12-21 17:03 | TELEMED_ITS ---
[facility] has confirmed receipt of a request for visit. This document confirms receipt of the order initiating the consult. To find the results of the consultation, please view the patient's reports for the scanned Telemed Consult.
[2021-12-21 17:20] LABS: Bedside Glucose 163 mg/dL (74-106)
[2021-12-21] MEDS: Acetaminophen 325 MG Tablet 650 MG PO (17:21)
[2021-12-21] MEDS: Insulin Lispro 100 UNIT/ML INSULN.PEN SC ×2 (17:21→21:22)
[2021-12-21] MEDS: 0.9% Normal Saline 1,000 ML 75 ML IV (17:21)
[2021-12-21 19:18] LABS: Troponin-I HS 16 pg/mL (3.0-78.0)
[2021-12-21] MEDS: hydrALAZINE 50 MG Tablet 100 MG PO (21:12)
[2021-12-21] MEDS: Isosorbide Mononitrate 60 MG Tablet PO (21:12)
[2021-12-21] MEDS: busPIRone 15 MG TABLET 7.5 MG PO (21:13)
[2021-12-21] MEDS: Gabapentin 600 MG Tablet PO (21:13)
[2021-12-21] MEDS: Carvedilol 25 MG Tablet PO (21:14)
[2021-12-21] MEDS: Atorvastatin Calcium 40 MG Tablet PO (21:14)
[2021-12-21] MEDS: Lisinopril 20 MG Tablet 30 MG PO (21:15)
[2021-12-21 22:01] LABS: Bedside Glucose 170 mg/dL (74-106)
[2021-12-22] VITALS (19 sets, daily range): BP systolic 159–224; BP diastolic 93–123; PULSE 69–87; RESP 16–20; TEMP 35.8–37; O2SAT 90–96
[2021-12-22] MEDS: Acetaminophen 325 MG Tablet 650 MG PO ×2 (04:19→22:48)
--- NOTE | 2021-12-22 04:55 | EKG12_ITS ---
Test Reason : AM EKG Blood Pressure : / mmHG Vent. Rate : 069 BPM Atrial Rate : 069 BPM P-R Int : 180 ms QRS Dur : 104 ms QT Int : 456 ms P-R-T Axes : -08 -53 -15 degrees QTc Int : 488 ms Normal sinus rhythm Left anterior fascicular block Anteroseptal infarct , age undetermined Abnormal ECG When compared with ECG of 21-DEC-2021 11:12, MANUAL COMPARISON REQUIRED, DATA IS UNCONFIRMED Confirmed by ALBA LAUGHLIN, JAKE ([id number]), rewrite editor CRISTI ROOT ([id number]) on 12/25/2021 10:42:49 AM Referred By: HARRY Confirmed By:JAKE WILLIS MD
[2021-12-22 05:36] LABS: Absolute Lymphocyte Count 2.65 X10^3/uL (0.83-4.51); Absolute Neutrophil Count 4.7 X10^3/uL (2.0-7.7); Basophil# 0.03 X10^3/uL; Basophil% 0.4 % (0-1); Eosinophil# 0.15 X10^3/uL; Eosinophils% 1.8 % (0-5); Hematocrit 43.7 % (40-54); Hemoglobin 14.6 g/dL (13.0-16.5); Lymphocyte # 2.65 X10^3/ul (0.83-4.51); Lymphocyte % 31.7 % (19-41); Mean Corp Hgb Conc 33.4 g/dL (32-36); Mean Corpuscular Hgb 30.8 pg (27.0-32.0); Mean Corpuscular Volume 92.2 fL (80-94); Mean Platelet Vol. 11.5 fl (6.2-12.0); Monocyte# 0.82 X10^3/uL; Monocyte% 9.8 % (0-10); NRBC Flagged by Analyzer 0 % (0-5); Neutrophil % 56.1 % (47-70); Platelet Count 185 K/mm3 (150-450); RBC Distribution Width CV 14.9 % (11.6-14.6); RBC Distribution Width SD 50.8 fl (35.1-43.9); Red Blood Count 4.74 M/mm3 (4.6-6.2); White Blood Count 8.4 K/mm3 (4.4-11.0)
[2021-12-22 06:05] LABS: Anion Gap 6 (5-15); BUN 27 mg/dL (7-18); Calcium,Total 8.1 mg/dL (8.5-10.1); Chloride 111 mmol/L (98-107); Creatinine, Serum 1.42 mg/dL (0.70-1.30); EST Glomerular Filtration Rate 51 mL/min (>60); Est Glom Filt Rate - Afr Amer 62 mL/min (>60); Estimated Creatinine Clearance 40.73 ml/min; Glucose 102 mg/dL (74-106); Potassium 3.6 mmol/L (3.5-5.1); Sodium Level 141 mmol/L (136-145)
[2021-12-22] MEDS: amLODIPine 2.5 MG Tablet PO (06:27)
[2021-12-22] MEDS: Lisinopril 20 MG Tablet 30 MG PO ×2 (06:27→22:42)
[2021-12-22] MEDS: Carvedilol 25 MG Tablet PO ×2 (06:28→16:16)
[2021-12-22] MEDS: Amiodarone 200 MG Tablet 100 MG PO (06:28)
[2021-12-22] MEDS: hydrALAZINE 50 MG Tablet 100 MG PO ×2 (06:29→22:38)
[2021-12-22] MEDS: Isosorbide Mononitrate 60 MG Tablet PO ×2 (06:29→22:40)
[2021-12-22 07:01] LABS: Bedside Glucose 108 mg/dL (74-106)
[2021-12-22] MEDS: Potassium Chloride Oral Tablet 10 MEQ PO (08:02)
--- NOTE | 2021-12-22 09:28 | CASEMGMT ---
According to the [facility] website, the [facility] are in-network tertiary facilities: [facility], [place], [facility], [facility], [facility], [facility], and . Megan CUNNINGHAM CM
--- NOTE | 2021-12-22 11:31 | PRO.PCM_ITS ---
Procedure Report Date of Procedure: 12/22/21 1. Left heart catheterizat 2. Selective left coronary therapy 3. Selective right cholangiography 4. Measurement of LVEDP 5. Left ventriculogram 6. Moderate sedation.ion Consent; Risk and benefit of procedure explained detail patient elected to proceed informed consent obtained. Preprocedure diagnosis; 76-year-old patient presented with syncopal episode. Patient seen and evaluated at the cardiology department Had paroxysmal A. fib, mild aortic stenosis, hypertension hyperlipidemia pu lmonary hypertension and obstructive sleep apnea Patient had abnormal stress test done in November 22, 2021. And he was scheduled as an outpatient cardiac catheterization however he presented with sy ncopal episode The cardiac markers have been negative A repeat echocardiogram LV function is preserved. Finding of echocardiogram ejection fraction 65 mild concentric left ventricle hypertrophy mild aortic stenosis with mild mitral insufficiency, RV systolic pressure 33 mmHg consistent with mild pulmonary hypertension. Diagnostic catheter used; 1. 6 [place] sheath in the right radial artery 2. 5 [place] catheter #3 5 Ukrainian JR4 4. 5 Ukrainian pigtail catheter 5. Glidewire and 0.035 J-wire. Procedure in detail; Patient brought to the [employer] in fasting state, right radial artery area pre pped and draped in the usual sterile fashion Access obtained from the right radial artery with 6 Ukrainian sheath placed in the right radial artery/Terumo Under fluoroscopic guidance we will proceed with a 5 Ukrainian [place] catheter advanced ascending aorta cannulated the left main, tortuosity of the left subclavian artery. Exchange to 5 Ukrainian JR4 cannulated the RCA multiple views of the left and right carotid system obtained following this catheter exchanged for 5 Ukrainian pigtail catheter 11 2 g obtained 30 degree CHÁVEZ projection as well measurement of LVEDP. Following this all catheter removed hemostasis maintained with placement of TR band to the right radial artery arteriotomy site with no complication in the [employer] Hemodynamics; LV systolic function preserved with ejection fraction in the range of 55 to 60% No systolic gradient across aortic valve. No mitral regurgitation noted LVEDP measuring 17 mmHg Coronary angiography findings; 1. Left main Short, calcified, bifurcating into LAD and the left circumflex Angiographically there is no obstructive atherosclerosis of the left main coronary artery 2. LAD, ostial?proximal 50-60%, calcified with extension of calcification to the mid LAD, rest of the LAD including mid and distal LAD normal angiographically 3. Left circumflex calcified proximally had around 50% stenosis, ostial high OM1 around 60 to 70% stenosis 4. RCA proximally had eccentric around 70% with the mid RCA occluded, RN PROCEDURES Conclusion and recommendation; This patient is allergic to aspirin and had significant coronary atherosclerosis We will continue medical treatment. He has a paroxysmal atrial fibrillation will resume Eliquis in addition to rest of his cardiac medication He will follow-up with his primary planning analyst Dr. Lino/[facility].
--- NOTE | 2021-12-22 11:44 | PN.CARD_ITS ---
Subjective Subjective No event from last night Objective Data Vital Signs: Vital Signs Temp Pulse Resp BP Pulse Ox 97.7 F L 76 16 196/108 H 96 12/22/21 06:26 12/22/21 07:18 12/22/21 06:26 12/22/21 06:29 12/22/21 07:40 Oxygen Flow Rate (L/min) 3 Oxygen Delivery Method Nasal Cannula Weight: 210 lb 8.663 oz Body Mass Index (BMI) 33.0 Intake & Output: Intake and Output for Last 24 Hours 12/20/21 12/21/21 12/22/21 23:59 23:59 23:59 Intake Total 250 / 550 1420 / 1420 Output Total 400 / 1000 1200 / 1200 Balance -150 / -450 220 / 220 Lab / Micro Data Result Diagrams: 12/22/21 05:20 12/22/21 05:20 Labs: Laboratory Results - last 24 hr 12/21/21 17:17: POC Glucose 163 H 12/21/21 18:27: Troponin I High Sens 16 12/21/21 21:22: POC Glucose 170 H 12/22/21 05:20: WBC 8.4, RBC 4.74, Hgb 14.6, Hct 43.7, MCV 92.2, MCH 30.8, MCHC 33.4, RDW Std Deviation 50.8 H, RDW Coeff of Azeem 14.9 H, Plt Count 185, MPV 11.5, Immature Gran % (Auto) 0.200, Neut % (Auto) 56.1, Lymph % (Auto) 31.7, [place] % (Auto) 9.8, Eos % (Auto) 1.8, Baso % (Auto) 0.4, Absolute Neuts (auto) 4.7, Absolute Lymphs (auto) 2.65, Nucleated RBC % 0 12/22/21 05:20: Sodium 141, Potassium 3.6, Chloride 111 H, Carbon Dioxide 24.0, Anion Gap 6, BUN 27 H, Creatinine 1.42 H, Estim Creat Clear Calc 40.73, Est GFR (MDRD) Af Amer 62, Est GFR (MDRD) Non-Af 51 L, BUN/Creatinine Ratio 19.0, Glucose 102, Calcium 8.1 L 12/22/21 06:33: POC Glucose 108 H Rhythm Strip Rhythm Strip: Sinus Rhythm Rate: 85 Ectopy: None Cardiology Labs/Tests 12/22/21 05:20: WBC 8.4, RBC 4.74, Hgb 14.6, Hct 43.7, MCV 92.2, MCH 30.8, MCHC 33.4, Plt Count 185, MPV 11.5, Immature Gran % (Auto) 0.200, Neut % (Auto) 56.1, Lymph % (Auto) 31.7, [place] % (Auto) 9.8, Eos % (Auto) 1.8, Baso % (Auto) 0.4, Absolute Neuts (auto) 4.7, Nucleated RBC % 0 12/22/21 05:20: Sodium 141, Potassium 3.6, Chloride 111 H, Carbon Dioxide 24.0, Anion Gap 6, BUN 27 H, Creatinine 1.42 H, Est GFR (MDRD) Af Amer 62, Est GFR (MDRD) Non-Af 51 L, BUN/Creatinine Ratio 19.0, Glucose 102, Calcium 8.1 L Rhythm: Normal sinus with PVC EKG: No bundle-branch block, normal sinus Radiography Diagnostic Testing: Radiology Impression Shoulder X-Ray 12/21/21 13:27 IMPRESSION: No fracture or malalignment. Degenerative changes, as above. Electronically Signed: Terry Doty MD (Brooks) at 14:33 EDT Reading Location ID and State: [facility] / [place] , Service support , Physical Exam Narrative Patient alert oriented x3 Not in acute distress Contrast exam; S1-S2 regular no murmur no systolic or diastolic murmur Chest exam clear to auscultation bilateral. 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 fib and has been on Eliquis Cardiac care plan recommendation; 1. Reviewed all the current medication will continue current treatment. Has a short calcified left main coronary artery. 2. Patient will follow up with the primary icu staff nurse Dr. Lino for continuation of cardiac care Further plan will be based on his clinical progression
[2021-12-22] MEDS: busPIRone 15 MG TABLET 7.5 MG PO ×2 (11:53→22:39)
[2021-12-22] MEDS: Omega-3 Acid Ethyl Esters 1 GM Capsule PO ×2 (11:53→22:40)
[2021-12-22] MEDS: Gabapentin 600 MG Tablet PO ×2 (11:54→22:40)
[2021-12-22] MEDS: Calcium Carb/Vitamin D 1 TABLET Tablet PO (11:54)
[2021-12-22] MEDS: DULoxetine Hcl 60 MG Capsule PO (11:54)
[2021-12-22] MEDS: Multivitamins,Ther W-Minerals Tablet 1 TABLET PO (11:55)
[2021-12-22] MEDS: Pantoprazole Sodium 20 MG Tablet PO (11:55)
[2021-12-22] MEDS: Furosemide 20 MG Tablet PO (11:55)
[2021-12-22 12:11] LABS: Bedside Glucose 131 mg/dL (74-106)
--- NOTE | 2021-12-22 13:07 | MRI_ITS ---
STUDY: MR Brain W/O Contrast 12/22/2021 7:56 PM REASON FOR EXAM: Male, 76 years old. syncope COMPARISON: CT head done yesterday TECHNIQUE: Standardized multiplanar fat and water weighted pulse sequences were obtained. MR Brain W/O Contrast FINDINGS: There is mild cerebral atrophy with widening of the extra-axial spaces and ventricular dilatation. Normal white matter tracts of the supratentorial brain. There is mild prominence of the vermian folia, consistent with atrophy of the vermis. The cerebellar hemispheres are normal. Normal bilateral basal ganglia. Normal thalami. There is no extra-axial fluid accumulation. Normal flow voids within the major intracranial circulation suggesting patency by spin echo criteria. Normal sella turcica, pituitary gland, infundibular stalk, optic chiasm and hypothalamus. Normal tectal plate and pineal gland. Normal midbrain, richard and medulla. Normal basal cisterns. Normal bilateral temporal bones. Normal bilateral internal auditory canals. No demonstrated orbital abnormality, within the constraints of a routine brain study. There is sinus disease. Normal calvarium and skull base. Normal visualized soft tissue structures. Normal visualized upper cervical spine. Aspect score 10 IMPRESSION: (NOT LISTED IN ORDER OF SIGNIFICANCE) There are no acute intracranial findings. There is sinus disease. Electronically Signed: Hong Ennis MD at 19:57 EDT , MRI/Brain without Contrast
[2021-12-22] MEDS: cloNIDine HCl 0.1 MG Tablet PO (13:23)
--- NOTE | 2021-12-22 14:25 | PN.HOSP_ITS ---
Subjective Subjective Patient seen and examined. was by his bedside. He had no active complaints. His myoclonic jerks had resolved. He is due for cardiac cath today. Review of stents otherwise negative. Neurology was reviewing him. Teleneurology at the time I was seeing him. Objective Data Objective Data Vital Signs: Vital Signs Temp Pulse Resp BP Pulse Ox 98.4 F 87 16 195/113 H 94 12/22/21 12:33 12/22/21 13:05 12/22/21 13:05 12/22/21 13:05 12/22/21 13:05 Oxygen Flow Rate (L/min) 3 Oxygen Delivery Method Room Air Weight: 210 lb 8.663 oz Body Mass Index (BMI) 33.0 Intake & Output: Intake and Output for Last 24 Hours 12/20/21 12/21/21 12/22/21 23:59 23:59 23:59 Intake Total 250 / 550 1420 / 1420 Output Total 400 / 1000 1200 / 1200 Balance -150 / -450 220 / 220 Lab / Micro Data Result Diagrams: 12/22/21 05:20 12/22/21 05:20 Labs: Laboratory Results - last 24 hr 12/21/21 17:17: POC Glucose 163 H 12/21/21 18:27: Troponin I High Sens 16 12/21/21 21:22: POC Glucose 170 H 12/22/21 05:20: WBC 8.4, RBC 4.74, Hgb 14.6, Hct 43.7, MCV 92.2, MCH 30.8, MCHC 33.4, RDW Std Deviation 50.8 H, RDW Coeff of Azeem 14.9 H, Plt Count 185, MPV 11.5, Immature Gran % (Auto) 0.200, Neut % (Auto) 56.1, Lymph % (Auto) 31.7, [place] % (Auto) 9.8, Eos % (Auto) 1.8, Baso % (Auto) 0.4, Absolute Neuts (auto) 4.7, Absolute Lymphs (auto) 2.65, Nucleated RBC % 0 12/22/21 05:20: Sodium 141, Potassium 3.6, Chloride 111 H, Carbon Dioxide 24.0, Anion Gap 6, BUN 27 H, Creatinine 1.42 H, Estim Creat Clear Calc 40.73, Est GFR (MDRD) Af Amer 62, Est GFR (MDRD) Non-Af 51 L, BUN/Creatinine Ratio 19.0, Glucose 102, Calcium 8.1 L 12/22/21 06:33: POC Glucose 108 H 12/22/21 11:51: POC Glucose 131 H Radiography Diagnostic Testing: Radiology Impression Shoulder X-Ray 12/21/21 13:27 IMPRESSION: No fracture or malalignment. Degenerative changes, as above. Electronically Signed: Terry Doty MD ([place]) at 14:33 EDT , Rhythm Strip Rhythm Strip: Sinus Rhythm Rate: 85 Ectopy: None Physical Exam Const alert, oriented x3 and no apparent distress General Appearance: cooperative Exam Limitations: no limitations HEENT normocephalic, head/scalp atraumatic and hearing grossly normal bilaterally Head and Scalp: normocephalic Eyes PERRL, EOMs intact bilaterally and conjunctivae normal Neck no lymphadenopathy, supple and no JVD Resp normal respiratory effort, no retractions, no use of accessory muscles and clear to auscultation bilaterally Cardio regular rate, regular rhythm, S1 normal heart sound, S2 normal heart sound and no murmurs GI normal to inspection, nondistended, normoactive bowel sounds, soft to palpation, non-tender and non-distended Extremity normal to inspection, full ROM and no clubbing, cyanosis or edema Peripheral Pulses: Yes pulses 2+ throughout Skin no rashes or lesions noted Neuro oriented x3 and CN's II-XII intact bilaterally Sensorium / Orientation: awake and alert Psych affect normal Assessment & Plan Assessment/Plan (1) Syncope: (2) Myoclonic jerking: PLAN: #Syncope * etiology of syncope is unclear. he says he has had several such syncopal episodes in the past few months * sounds like a vasovagal event, as he had been sitting on the commode * CT of the brain was negative. * neurology reviewed patient today and is concerned about possible stroke. Recommended MRI of the brain and EEG * orthostatics were negative * he had cardiac cath today which showed normal LVSF with nonobstructive atherosclerosis of the left main coronary artery, 50 to 60% stenosis of the proximal LAD calcified with extension of calcification into the mid LAD. Left circumflex calcified proximally with 50% stenosis in RCA approximately had a 70% stenosis with admitted with severe occluded. Plan is for medical management. * 2D echo done. * fall precautions * #Myoclonic jerks * resolved. * #History of A. fib: On amiodarone #Hyperlipidemia: On statin #History of rheumatoid arthritis: stable #Hypertension: * poorly controlled. Per his , BP has been difficult to control * on hydralazine, carvedilol and amlodipine as well as furosemide. gave PO clonidine 0.3mg x 1 today. * IV hydralazine prn * #CAD * cardiac cath findings as above * on high intensity statin and carvedilol * #Type 2 diabetes mellitus: Hold oral medications. Insulin sliding scale. Accu- Cheks AC at bedtime. DVT prophylaxis; not indicated as patient is on eliquis Code status: full code * Charges/Coding Visit Charges Inpatient E&M: 79941 Subs Hosp L2
--- NOTE | 2021-12-22 16:07 | CASEMGMT ---
Pt states no need for therapy at discharge. Pt does state concerns with syncopal episodes and hoping to find answer for same. CM to follow for any further discharge planning/needs. Megan CUNNINGHAM CM
[2021-12-22] MEDS: Insulin Lispro 100 UNIT/ML INSULN.PEN SC ×2 (16:15→22:43)
[2021-12-22 16:26] LABS: Bedside Glucose 158 mg/dL (74-106)
[2021-12-22] MEDS: Latanoprost 0.005% 1 Bottle 1 DRP LEFT EYE (22:37)
[2021-12-22] MEDS: Doxycycline 100 MG CAPSULE PO (22:40)
[2021-12-22] MEDS: Atorvastatin Calcium 40 MG Tablet PO (22:42)
[2021-12-22 23:11] LABS: Bedside Glucose 159 mg/dL (74-106)
[2021-12-23 03:23] VITALS: BP 165/88; PULSE 69; RESP 16; TEMP 35.6; O2SAT 95
[2021-12-23 03:29] VITALS: PULSE 71
[2021-12-23 07:11] LABS: Bedside Glucose 141 mg/dL (74-106)
[2021-12-23 07:14] LABS: Absolute Lymphocyte Count 2.19 X10^3/uL (0.83-4.51); Absolute Neutrophil Count 4.2 X10^3/uL (2.0-7.7); Basophil# 0.03 X10^3/uL; Basophil% 0.4 % (0-1); Eosinophil# 0.17 X10^3/uL; Eosinophils% 2.3 % (0-5); Hematocrit 39.9 % (40-54); Hemoglobin 13.2 g/dL (13.0-16.5); Lymphocyte # 2.19 X10^3/ul (0.83-4.51); Lymphocyte % 30.2 % (19-41); Mean Corp Hgb Conc 33.1 g/dL (32-36); Mean Corpuscular Hgb 30.2 pg (27.0-32.0); Mean Corpuscular Volume 91.3 fL (80-94); Mean Platelet Vol. 11.1 fl (6.2-12.0); Monocyte# 0.69 X10^3/uL; Monocyte% 9.5 % (0-10); NRBC Flagged by Analyzer 0 % (0-5); Neutrophil # 4.17 X10^3/uL (2.7-7.7); Neutrophil % 57.5 % (47-70); Platelet Count 179 K/mm3 (150-450); RBC Distribution Width CV 15.3 % (11.6-14.6); Red Blood Count 4.37 M/mm3 (4.6-6.2); White Blood Count 7.3 K/mm3 (4.4-11.0)
[2021-12-23 07:23] VITALS: PULSE 88
[2021-12-23 07:38] LABS: Anion Gap 4 (5-15); BUN 34 mg/dL (7-18); BUN/Creat Ratio 20.1 RATIO (10-20); Calcium,Total 8.3 mg/dL (8.5-10.1); Chloride 110 mmol/L (98-107); Creatinine, Serum 1.69 mg/dL (0.70-1.30); EST Glomerular Filtration Rate 42 mL/min (>60); Est Glom Filt Rate - Afr Amer 51 mL/min (>60); Estimated Creatinine Clearance 34.22 ml/min; Glucose 134 mg/dL (74-106); Potassium 3.6 mmol/L (3.5-5.1); Sodium Level 142 mmol/L (136-145)
[2021-12-23 09:28] VITALS: BP 163/93; PULSE 75; RESP 18; TEMP 36.2; O2SAT 98
[2021-12-23] MEDS: Pantoprazole Sodium 20 MG Tablet PO (09:34)
[2021-12-23] MEDS: DULoxetine Hcl 60 MG Capsule PO (09:34)
[2021-12-23] MEDS: busPIRone 15 MG TABLET 7.5 MG PO (09:35)
[2021-12-23] MEDS: Omega-3 Acid Ethyl Esters 1 GM Capsule PO (09:35)
[2021-12-23] MEDS: Carvedilol 25 MG Tablet PO (09:35)
[2021-12-23] MEDS: Gabapentin 600 MG Tablet PO (09:36)
[2021-12-23] MEDS: Calcium Carb/Vitamin D 1 TABLET Tablet PO (09:36)
[2021-12-23] MEDS: amLODIPine 2.5 MG Tablet PO (09:36)
[2021-12-23] MEDS: Isosorbide Mononitrate 60 MG Tablet PO (09:36)
[2021-12-23] MEDS: Lisinopril 20 MG Tablet 30 MG PO (09:37)
[2021-12-23] MEDS: Potassium Chloride Oral Tablet 10 MEQ PO (09:37)
[2021-12-23 09:38] VITALS: PULSE 75
[2021-12-23] MEDS: Multivitamins,Ther W-Minerals Tablet 1 TABLET PO (09:38)
[2021-12-23] MEDS: hydrALAZINE 50 MG Tablet 100 MG PO (09:38)
[2021-12-23] MEDS: Amiodarone 200 MG Tablet 100 MG PO (09:39)
[2021-12-23] MEDS: Furosemide 20 MG Tablet PO (09:40)
[2021-12-23] MEDS: Timolol 0.25% 5ML OPTH.BTL 1 DRP LEFT EYE (09:40)
--- NOTE | 2021-12-23 10:55 | PCM.DC.SUM ---
Providers Date of Admission: 12/21/21 Primary Care Physician: Dr. Jayme Yang MD Consultations 12/21/21 17:15 Consult: Cardiology Routine Consulting Provider: Makenna Naqvi Reason for Consult: recurrent syncope, scheduled for cath EMERGENT Consult: No MD Notified: Yes Date Notified: 12/21/21 Time Notified: 17:15 Method of Notification: Text Reason For Visit: SYNCOPE,AFIB HX,ANTICOAGULATION Diagnosis Discharge Diagnosis (1) Syncope: Status: Acute Code(s): R55 - Syncope and collapse (2) Myoclonic jerking: Status: Acute Code(s): G25.3 - Myoclonus Medications at Discharge Home Medications glimepiride 2 mg PO DAILY 01/22/18 wbptjrel-sjm-BQ-lycopen-lutein 1 ea PO DAILY 09/17/18 duloxetine 60 mg capsule,delayed release 60 mg PO DAILY 06/02/19 lisinopril 30 mg tablet 30 mg PO BID tab 02/08/21 buspirone 7.5 mg PO BID 04/12/21 carvedilol 25 mg tablet 25 mg PO BID #180 tab 05/02/21 isosorbide mononitrate 60 mg tablet,extended release 24 hr 60 mg PO BID #60 tab 07/27/21 albuterol sulfate 2 puff INHALATION Q6H PRN 08/09/21 furosemide 20 mg tablet 20 mg PO DAILY #90 tab 09/06/21 rosuvastatin 20 mg tablet 20 mg PO DAILY #90 tab 11/21/21 apixaban 5 mg tablet 5 mg PO BID #180 tab 11/22/21 potassium chloride 10 mEq tablet,extended release(part/cryst) 10 meq PO DAILY #90 tab 11/22/21 amlodipine 2.5 mg tablet 2.5 mg PO DAILY #30 tab 12/13/21 hydralazine 100 mg tablet 100 mg PO BID tab 12/13/21 omega-3 fatty acids 1,000 mg PO BID cap 12/13/21 calcium carbonate-vitamin D3 1 tab PO DAILY 12/21/21 esomeprazole magnesium [Nexium] 20 mg PO DAILY 12/21/21 latanoprost 1 drp LEFT EYE QPM 12/22/21 timolol 1 drp LEFT EYE DAILY 12/22/21 amiodarone 100 mg PO DAILY #30 tab 12/23/21 gabapentin 600 mg PO BID #0 tab 12/23/21 Hospital Course Operations None Procedures 2-D Echocardiogram and Cardiac catheterization Summary of Care Provided Minutes Spent on Discharge: 55 Hospital Course: MEGAN HOLLOWAY, is a 76 M with an extensive PMH as outlined who presents with a complaint of syncope. He went to the bathroom and said he was feeling well. He sat on the toilet and started feeling dizzy and lightheaded. next thing he realised he was on the floor. His heard him fall and found him unresponsive. says he was unresponsive for about one minute. She didnt witness any seizure activity. He was suppsed to get a cardiac cath 2 days ago, but this was postponed because he wasnt feeling well. He denied any headache, chest pain, palpitations, dizziness, nausea, vomiting or diarrhea. Review of systems is otherwise negative. Per his , he was also having intermittent jerking motions of his extremities, mainly his upper extremities, which was new for him. He didnt have any urinary incontinence or fecal incontinence or drowsiness. Vitals in the ED were BP of 1143/103, SC of 84, RR of 16 and oxygen sats of 98% on room air. CBC was unremarkable, and BMP showed Cr of 1.89 with sodium of 137, K of 3.8 and initial troponin of 15. CT of the brain was negative for any acute intracranial pathology. CXR showed no acute cardiopulmonary process. He was admitted to be managed for syncope and myclonic jerks. Cardiology was consulted, and he had a cardiac cath which showed normal LVSF with nonobstructive atherosclerosis of the left main coronary artery, 50 to 60% stenosis of the proximal LAD calcified with extension of calcification into the mid LAD. Left circumflex calcified proximally with 50% stenosis and RCA approximately had a 70% stenosis with the mid RCA severely occluded. Plan was for medical management. Neurology was also consulted o/a of his myclonic jerks which subsequently resolved completely. HE had an MRI of the head which was negative for any occasional intracranial pathology and he had an EEG which was also normal. Per neurology his myoclonic jerks may have been due to his mildly elevated BUN. Patient remained stable and he was able to ambulate around and did well. He was discharged home on 12/23/2021 and is follow-up with his primary care doctor and follow-up with cardiology. Patient was seen and examined prior to discharge. He had no active complaints and had an uneventful night. He felt well. Review of systems otherwise negative. Labs and vitals reviewed. Home medication reviewed and reconciled. Physical Exam Const alert, oriented x3 and no apparent distress General Appearance: cooperative and comfortable Exam Limitations: no limitations HEENT normocephalic, head/scalp atraumatic and hearing grossly normal bilaterally Eyes PERRL, EOMs intact bilaterally and conjunctivae normal Neck no lymphadenopathy, supple and no JVD Resp normal respiratory effort, no retractions, no use of accessory muscles and clear to auscultation bilaterally Cardio regular rate, regular rhythm, S1 normal heart sound, S2 normal heart sound and no murmurs GI normal to inspection, nondistended, normoactive bowel sounds, soft to palpation, non-tender and non-distended Extremity normal to inspection, full ROM and no clubbing, cyanosis or edema Skin no rashes or lesions noted Neuro oriented x3, CN's II-XII intact bilaterally and moves all extremities Sensorium / Orientation: awake and alert Psych affect normal Weight / BMI Weight Weight: 210 lb 8.663 oz Body Mass Index (BMI) 33.0 ABG / Lab / Microbiology Data Result Diagrams: 12/23/21 06:50 12/23/21 06:50 Laboratory: Laboratory Results - last 24 hr 12/22/21 11:51: POC Glucose 131 H 12/22/21 16:10: POC Glucose 158 H 12/22/21 22:37: POC Glucose 159 H 12/23/21 06:50: WBC 7.3, RBC 4.37 L, Hgb 13.2, Hct 39.9 L, MCV 91.3, MCH 30.2, MCHC 33.1, RDW Std Deviation 51.0 H, RDW Coeff of Azeem 15.3 H, Plt Count 179, MPV 11.1, Immature Gran % (Auto) 0.100, Neut % (Auto) 57.5, Lymph % (Auto) 30.2, [place] % (Auto) 9.5, Eos % (Auto) 2.3, Baso % (Auto) 0.4, Absolute Neuts (auto) 4.2, Absolute Lymphs (auto) 2.19, Nucleated RBC % 0 12/23/21 06:50: Sodium 142, Potassium 3.6, Chloride 110 H, Carbon Dioxide 28.0, Anion Gap 4 L, BUN 34 H, Creatinine 1.69 H, Estim Creat Clear Calc 34.22, Est GFR (MDRD) Af Amer 51 L, Est GFR (MDRD) Non-Af 42 L, BUN/Creatinine Ratio 20.1 H, Glucose 134 H, Calcium 8.3 L 12/23/21 07:00: POC Glucose 141 H Radiography Diagnostic Testing: Radiology Impression Brain MRI 12/22/21 13:07 D/C Instructions Discharge Diet: Low fat / Low cholesterol Discharge Activity: Return to Normal Activity Weight Bearing Status: Weight bearing as tolerated Call your doctor if you observe: Fever of 101 or Higher, Shortness of breath, Swelling in the ankles and Chest pain Meaningful Use Info Meaningful Use Diagnoses (Choose all that apply): None applicable Discharge Plan Admission Admit Date/Time: 12/21/21 13:50 Primary Reason for Your Visit: syncope Attending Provider: Kimmie Nur Primary Care Provider: Jayme Yang Consulting Providers: Makenna Naqvi Discharge Orders/Prescriptions Prescriptions: New amiodarone 200 mg Tablet 100 mg PO DAILY Qty: 30 RF: 2 Continued duloxetine [Cymbalta] 60 mg capsule,delayed release(DR/EC) 60 mg PO DAILY RF: 0 lisinopril 30 mg tablet 30 mg PO BID RF: 0 hydralazine 100 mg tablet 100 mg PO BID RF: 0 amlodipine 2.5 mg tablet 2.5 mg PO DAILY Qty: 30 RF: 11 glimepiride 2 MG tablet 2 mg PO DAILY RF: 0 bpcijqmv-bhs-DT-lycopen-lutein 1 EACH tablet 1 ea PO DAILY RF: 0 buspirone 7.5 mg tablet 7.5 mg PO BID RF: 0 albuterol sulfate 90 mcg/actuation Hfa Aerosol Inhaler 2 puff INHALATION Q6H PRN (Reason: SOB) RF: 0 omega-3 fatty acids Capsule 1,000 mg PO BID RF: 0 calcium carbonate-vitamin D3 600 mg-5 mcg (200 unit) Tablet 1 tab PO DAILY RF: 0 esomeprazole magnesium [Nexium] 20 mg Capsule,Delayed Release(Dr/Ec) 20 mg PO DAILY RF: 0 latanoprost 0.005 % Drops 1 drp LEFT EYE QPM RF: 0 timolol 0.25 % Drops 1 drp LEFT EYE DAILY RF: 0 gabapentin 600 mg tablet 600 mg PO BID Qty: 0 RF: 0 carvedilol 25 mg tablet 25 mg PO BID Qty: 180 RF: 3 isosorbide mononitrate 60 mg tablet extended release 24 hr 60 mg PO BID Qty: 60 RF: 11 furosemide 20 mg tablet 20 mg PO DAILY Qty: 90 RF: 3 rosuvastatin 20 mg tablet 20 mg PO DAILY Qty: 90 RF: 3 potassium chloride 10 mEq tablet,ER particles/crystals 10 meq PO DAILY Qty: 90 RF: 3 apixaban 5 mg tablet 5 mg PO BID Qty: 180 RF: 3 Discontinued amiodarone 200 mg tablet 100 mg PO DAILY RF: 0 doxycycline hyclate 100 mg tablet 100 mg PO BID RF: 0 Referrals / Follow Up: Jayme Lino MD [STAFF PHYSICIAN] - Within 2 Weeks Jayme Yang MD [Primary Care Provider] - Within 2 Weeks Disposition Disposition (needs filled in before D/C Order can be placed): Home, Self Care Charges/Coding Visit Charges Inpatient E&M: 12689 [facility] Hosp
[2021-12-23 12:01] LABS: Bedside Glucose 124 mg/dL (74-106)
== END 2021-12-23 11:31 | disposition home or self-care (01) ==
LOC: ED 13:40 → PCU 12-22 07:19
PROVIDERS: Admitting Provider Student in an Organized Health Care Education/Training Program; Emergency Provider Emergency Medicine; PCP Family Medicine; Visit Provider Student in an Organized Health Care Education/Training Program
DX: R55 Syncope and collapse (principal); M06.9 Rheumatoid arthritis, unspecified; F03.90 Unspecified dementia, unspecified severity, without behavioral disturbance, psychotic disturbance, mood disturbance, and anxiety; I27.20 Pulmonary hypertension, unspecified; I48.0 Paroxysmal atrial fibrillation; I47.2 Ventricular tachycardia; E11.9 Type 2 diabetes mellitus without complications; S09.90XA Unspecified injury of head, initial encounter; I16.0 Hypertensive urgency; E78.5 Hyperlipidemia, unspecified; I10 Essential (primary) hypertension; Z79.01 Long term (current) use of anticoagulants; R94.39 Abnormal result of other cardiovascular function study; I35.0 Nonrheumatic aortic (valve) stenosis; S40.012A Contusion of left shoulder, initial encounter; G25.3 Myoclonus; I25.10 Atherosclerotic heart disease of native coronary artery without angina pectoris; Z79.899 Other long term (current) drug therapy; Z79.84 Long term (current) use of oral hypoglycemic drugs; Z87.891 Personal history of nicotine dependence; W18.11XA Fall from or off toilet without subsequent striking against object, initial encounter; Y93.9 Activity, unspecified; Y99.9 Unspecified external cause status; Y92.9 Unspecified place or not applicable; Z86.16 Personal history of COVID-19; K21.9 Gastro-esophageal reflux disease without esophagitis; G47.33 Obstructive sleep apnea (adult) (pediatric)
CPT/HCPCS: 36415; 70450; 70551; 71045; 73030; 80048; 82962; 84484; 85025; 93005; 93458; 95819; 96360; 96361; 97161; 97166; 99152; 99153; 99218; 99285; J7030; J7040; A4216; C1769; C1894; G0378; Q9967

== ENCOUNTER 2022-01-09 16:14 | Outpatient (CLI) | payer MEDICARE, SELFPAY ==
--- NOTE | 2021-12-13 11:10 | RAD_ITS ---
STUDY: X-RAY CHEST REASON FOR EXAM: Male, 76 years old. Cardiac catheterization. TECHNIQUE: Frontal and lateral views of the chest. COMPARISON: 04/12/2021. FINDINGS: The lungs are clear and expanded. There is no demonstrated pleural abnormality. Normal size heart. Normal mediastinum and corina. Normal visualized pulmonary arteries. Stable aortic tortuosity with calcification. Normal visualized thoracic spine. Normal visualized ribs, clavicles, and shoulders. There is no demonstrated abnormality of the visualized soft tissue structures of the upper abdomen. RAD/Chest PA and Lateral IMPRESSION: No interval change and no acute or active cardiopulmonary disease Electronically Signed: Adalberto Laguerre MD at 11:31 EDT ,
[2021-12-13 11:29] LABS: Absolute Lymphocyte Count 2.75 X10^3/uL (0.83-4.51); Absolute Neutrophil Count 4.5 X10^3/uL (2.0-7.7); Basophil# 0.02 X10^3/uL; Basophil% 0.2 % (0-1); Eosinophil# 0.17 X10^3/uL; Hematocrit 43.3 % (40-54); Hemoglobin 14.7 g/dL (13.0-16.5); Lymphocyte # 2.75 X10^3/ul (0.83-4.51); Mean Corp Hgb Conc 33.9 g/dL (32-36); Mean Corpuscular Hgb 30.6 pg (27.0-32.0); Mean Platelet Vol. 10.9 fl (6.2-12.0); Monocyte# 0.89 X10^3/uL; Monocyte% 10.7 % (0-10); NRBC Flagged by Analyzer 0 % (0-5); Neutrophil # 4.49 X10^3/uL (2.7-7.7); Neutrophil % 53.9 % (47-70); Platelet Count 199 K/mm3 (150-450); RBC Distribution Width CV 15.1 % (11.6-14.6); Red Blood Count 4.81 M/mm3 (4.6-6.2); White Blood Count 8.3 K/mm3 (4.4-11.0)
[2021-12-13 11:46] LABS: International Normalized Ratio 1.1; Partial Thromboplast Time 37.3 Seconds (24.1-36.2); Prothrombin Time (Protime)PT. 13.8 SECONDS (11.7-14.9)
[2021-12-13 11:52] LABS: Anion Gap 4 (5-15); BUN 16 mg/dL (7-18); BUN/Creat Ratio 9.2 RATIO (10-20); Calcium,Total 9.1 mg/dL (8.5-10.1); Chloride 107 mmol/L (98-107); Creatinine, Serum 1.74 mg/dL (0.70-1.30); EST Glomerular Filtration Rate 41 mL/min (>60); Est Glom Filt Rate - Afr Amer 49 mL/min (>60); Glucose 125 mg/dL (74-106); Potassium 3.8 mmol/L (3.5-5.1); Sodium Level 140 mmol/L (136-145)
[2021-12-18 08:53] VITALS: BMI 37.0
--- NOTE | 2021-12-18 13:08 | PCM.HP.BLA ---
History and Physical Date of Admission: 12/19/21 [facility] [address], [place] [phone] OFFICE VISITDate of Service: 12/13/21 MR#:[id number]: MEGAN HOLLOWAY #[id number]:[id number] Provider: TERESE Engel/Sex: 76/M [facility] HPI History of Present Illness Surgical H&P: Yes Details: This is a 76-year-old white male who presents today for outpatient cardiovascular follow-up. He will be scheduled for a cardiac catheterization due to an abnormal stress test. He has a history of syncope, paroxysmal atrial fibrillation, aortic valve stenosis, hyperlipidemia, hypertension, pulmonary hypertension, and SUPA. Since his last visit he has undergone additional noninvasive studies which is included a transthoracic echocardiogram, a carotid artery duplex study, and a 30-day ambulatory event monitor. He does bring with him his blood pressure recordings. His blood pressures remain elevated. From a cardiac standpoint, the patient is doing well. He denies any palpitations, chest pain, pressure or heaviness. He does state that he feels like he has congestion in his chest-he states this is related to change in weather/allergies. He does have SOB with exertion-walking up stairs-he states this is worsening. He denies Orthopnea,and PND. He does wear a BiPAP. He denies any bleeding issues; no blood in urine, stool or nosebleeds. He denies any decrease in energy level, myalgias, or claudication. He denies edema, or sudden weight gain. He does have occasional dizziness/lightheadedness. This occurs at times with positional changes. He denies syncopal or near syncopal episodes, and headaches. Intake Vital Signs 12/13/21 10:04 Height 5 ft 5 in Weight: 223 lb BMI 37.0 BP 159/80 H Blood Pressure Location Lt brachial Position Sitting Respiration 16 Pulse 80 Pulse Source Monitor Intake Visit Reasons: update [employer] D[employer] Supervisor Required: No Accompanied by: Is patient in pain?: No Allergies aspirin Allergy (Severe, Verified 12/13/21 10:28) Mouth swelling donepezil [From Aricept] Adverse Reaction (Severe, Verified 12/13/21 10:28) Swelling minoxidil Adverse Reaction (Severe, Verified 12/13/21 10:28) swelling morphine Adverse Reaction (Severe, Verified 12/13/21 10:28) UNABLE TO URINATE Medications infliximab-dyyb 100 mg IV .COMPLEX 02/18/17 [History Confirmed 12/13/21] esomeprazole magnesium 20 mg PO DAILY 04/15/17 [History Confirmed 12/13/21] glimepiride 2 mg PO DAILY 01/22/18 [History Confirmed 12/13/21] fdasaudu-eik-WU-lycopen-lutein 1 ea PO DAILY 09/17/18 [History Confirmed 12/13/21] calcium carbonate 600 mg-vitamin D3 20 mcg (800 unit) tablet 1 tab PO DAILY 06/02/19 [History Confirmed 12/13/21] duloxetine 60 mg capsule,delayed release 60 mg PO DAILY 06/02/19 [History Confirmed 12/13/21] gabapentin 600 mg tablet 600 mg PO BID tab 06/02/19 [History Confirmed 12/13/21] lisinopril 30 mg tablet 30 mg PO BID tab 02/08/21 [History Confirmed 12/13/21] buspirone 7.5 mg PO BID 04/12/21 [History Confirmed 12/13/21] carvedilol 25 mg tablet 25 mg PO BID #180 tab 05/02/21 [Rx Confirmed 12/13/21] isosorbide mononitrate 60 mg tablet,extended release 24 hr 60 mg PO BID #60 tab 07/27/21 [Rx Confirmed 12/13/21] albuterol sulfate 2 puff INHALATION Q6H PRN 08/09/21 [History Confirmed 12/13/21] furosemide 20 mg tablet 20 mg PO DAILY #90 tab 09/06/21 [Rx Confirmed 12/13/21] amiodarone 200 mg tablet 100 mg PO DAILY tab 09/26/21 [History Confirmed 12/13/21] rosuvastatin 20 mg tablet 20 mg PO DAILY #90 tab 11/21/21 [Rx Confirmed 12/13/21] apixaban 5 mg tablet 5 mg PO BID #180 tab 11/22/21 [Rx Confirmed 12/13/21] potassium chloride 10 mEq tablet,extended release(part/cryst) 10 meq PO DAILY #90 tab 11/22/21 [Rx Confirmed 12/13/21] amlodipine 2.5 mg tablet 2.5 mg PO DAILY #30 tab 12/13/21 [Rx Confirmed 12/13/21] hydralazine 100 mg tablet 100 mg PO BID tab 12/13/21 [History Confirmed 12/13/21] omega-3 fatty acids 1,000 mg PO BID cap 12/13/21 [History Confirmed 12/13/21] Ejection fraction %: 65 to 70 PFSH Medical History Acute respiratory insufficiency Ambulates with cane Arthritis Asthma Asymptomatic hypertensive urgency Atrial fibrillation with RVR Back pain Bronchitis Cardiology follow-up encounter Colitis Concussion Covid-19 COVID-19 virus infection CPAP (continuous positive airway pressure) dependence Dementia Diabetes Diverticula of colon DM2 (diabetes mellitus, type 2) Essential hypertension Excessive bleeding Former smoker Gastric reflux History of atrial fibrillation History of echocardiogram History of edema History of renal disease History of steroid therapy History of stress test Hyperlipidemia Hypertensive urgency Inflammatory bowel disease Injury of head and neck Intractable pain Kidney stones Loss of consciousness NSVT (nonsustained ventricular tachycardia) SUPA (obstructive sleep apnea) Paroxysmal atrial fibrillation Pulmonary hypertension Renal colic on left side Rheumatoid aortitis Rheumatoid arthritis Rhinovirus Sepsis Severe acute respiratory syndrome coronavirus 2 (SARS-CoV-2) infection ruled out Severe sepsis Sleep apnea SOB (shortness of breath) Ureterolithiasis Wears dentures Wears glasses Wears hearing aid Surgical History Cervical vertebral fusion History of back surgery History of bilateral knee replacement History of removal of cyst Hx of colectomy Hx of cystoscopy Hx of surgical procedure Family History Mother Heart disease Diabetes Father Heart disease Lung disease Brother Heart disease Lung disease Cancer prostate, pancreatic Sister Diabetes Cancer uterine Social History Smoking Status: Former smoker how long ago did patient quit smokin, 2ppd second hand exposure: Yes alcohol intake: never substance use type: does not use caffeine: Yes Type: coffee Number of servings: 2 ROS Const Const: Positive for fatigue and weakness; Negative for fever(s), headache(s), chills, frequent falls, weight gain or weight loss Eyes Eyes: Negative for blind spots, loss of peripheral vision, transient loss of vision, blurry vision, change in vision, double vision, floaters or tunnel vision ENT ENT: Positive for balance problems; Negative for headache(s), dizziness, Nosebleed/epistaxis or neck pain Cardio Chest Pain: Yes (Patient relates to chest congestion) Palpitations: No Edema: Bilateral (No improvement with stopping amlodipine) Muscle aches with walking: None Resp Respiratory: Positive for SOB with activity (With stairs); Negative for SOB at rest or SOB orthopnea\SOB lying down GI GI: Negative nausea, vomiting, heartburn, bloating, vomiting blood/hematemesis, bright, red blood in stools or black,tarry stools Musc Musc: Positive for muscle weakness, joint pain and balance problems; Negative for muscle aches/ myalgia Neuro Neuro: Positive for lightheadedness (occasional with positional changes) and weakness; Negative for dizziness, near syncope, syncope, orthostatic symptoms, frequent falls, headache(s), blurry vision or double vision Too Hematologic/Lymphatic: Negative for easy bleeding or easy bruising Endo Endo: Positive for fatigue Cardiology Exam Const Appearance: cooperative and no acute distress Nutritional Appearance: obese Orientation: alert and oriented x3 Head Head: normal to inspection Ears: hearing grossly normal bilaterally Nose: external nose normal Face and Sinus: face symmetric Eyes General: appearance normal, both eyes and all related structures Eyelids: eyelids normal Conjunctivae: conjunctivae normal Pupils: PERRL and pupil size EOM: EOM intact bilaterally Neck Neck: normal visual inspection Carotids: Negative bruit Chest Chest inspection: normal inspection of the chest and normal respiratory effort Auscultation: Bilateral: Clear to Auscultation Cardio Palpation: normal PMI Rate: regular rate Rhythm: regular rhythm Heart sounds: S1 normal and S2 normal; Negative rub, gallop or murmur GI GI: normal to inspection, soft and obese; Negative no hepatosplenomegaly Neuro General: patient alert, patient oriented x3 and CN's II-XI intact bilaterally Skin Skin: no rashes or lesions noted Extremities Pulses: Normal: Right Posterior Tibial Pulse, Left Posterior Tibial Pulse, Right Radial Pulse and Left Radial Pulse Lower Extremity Edema: Trace: Bilateral Psych Psychological: normal affect Supplemental Info Supplemental Information Stress test 11/22/2021: Procedure: Pharmacologic stress nuclear imaging study Indications: Syncope; ventricular tachycardia; atrial fibrillation Consent: Per the patient Procedure: The patient underwent pharmacologic (Regadenoson 0.4mg ) evaluation with a peak heart rate of 91 beats per minute (63%predicted maximal heart rate) and a peak blood pressure of 178/102 mmHg. The baseline ECG demonstrated normal sinus rhythm; poor R wave progression; anterolateral NV of indeterminate age cannot be excluded. The peak pharmacologic ECG demonstrated no obvious ECG changes. There were no cardiac dysrhythmias pretest, during pharmacologic infusion, or recovery. There was no complaint of chest discomfort during pharmacologic infusion or recovery. The examination was discontinued secondary to completion of protocol. Impression: 1. Pharmacologic (Regadenoson) evaluation 2. Peak pharmacologic ECG with no obvious ECG changes. 3. There were no cardiac dysrhythmias pretest, during pharmacologic infusion, or recovery. 4. Nuclear images pending Myocardial perfusion imaging study: Technique: The patient was injected with 14.4 millicuries of technetium 99m Cardiolite and subsequently rest SPECT Cardiolite nuclear imaging was obtained in the horizontal long, vertical long, and short axis views. The patient underwent pharmacologic (Regadenoson) evaluation with a peak heart rate of 91 beats per minute (63% percent predicted maximal heart rate) and a peak blood pressure of 178/102 mmHg. The patient was injected with 44.3 millicuries of technetium 99m Cardiolite and subsequently stress SPECT Cardiolite nuclear imaging was obtained in the horizontal long, vertical long, and short axis views. A gated Cardiolite study at peak stress was not obtained. Interpretation: Rest and stress SPECT Cardiolite nuclear imaging status post realignment, normalization, and attenuation correction demonstrate the appearance of relative uniform tracer uptake and myocardial perfusion appearing within normal limits at rest. Status post stress there is a small area of diminished myocardial perfusion/tracer uptake in the distal inferolateral segments. There are similar type findings on the stress poor map images. Impression: 1. Rest and stress SPECT her nuclear imaging demonstrate myocardial perfusion changes potentially compatible with an are of stress-induced myocardial ischemia involving the distal inferolateral segments. 2. A gated Cardiolite study at peak stress was not obtained. Echocardiogram 10/05/2021: Interpretation Summary The study was technically difficult. Contrast injection was performed. Left ventricular systolic function is normal. The estimated ejection fraction is 65 %. Mild concentric left ventricular hypertrophy. The left atrium is mildly enlarged. There is mild to moderate mitral annular calcification. Extension of the mitral annular calcification onto the base of the posterior mitral valve leaflet. Mild focal mitral valve calcification of the anterior leaflet. Mild (1+) mitral valve insufficiency. Trivial tricuspid valve insufficiency. Mild aortic stenosis. Mild (1+) pulmonic valve insufficiency. Right ventricular systolic pressure estimated to be 33 mmHg. Diastolic function is indeterminate. Carotid Duplex 09/2021: Interpretation Summary Irregular calcific plaque at the proximal right internal carotid artery with less than 50% stenosis Less than 50% stenosis right external carotid artery Irregular calcific plaque of the proximal left internal carotid artery with less than 50% stenosis Less than 50% stenosis left external carotid artery Patent antegrade vertebral arteries bilaterally Labs: No Data to Display Diagnostics: Echocardiogram Stress Test NM Stress Test Chest X-Ray Pulmonary: No Data to Display Assessment and Plan Assessment and Plan (1) Abnormal stress test: Status: Acute Orders: Orders: Basic Metabolic Profile (BMP) Today Partial Thromboplast Time Today Prothrombin Time w/INR Today CBC W/Diff, Automated Today Chest PA and Lateral Today Claire Chavez NP, DIRECTOR SUPPLY CHAIN-C: Patients stress test from 11/22/2021 was abnormal, with the possibility of an area of myocardial ischemia in the inferolateral segments. We will obtain a cardiac catheterization to evaluate this. Cardiac catheterization instructions given to patient. He was instructed to hold his Eliquis 4 days prior to his procedure. (2) Paroxysmal atrial fibrillation: Status: Acute Claire Chavez NP, DIRECTOR SUPPLY CHAIN-C: Patient has a history of paroxysmal atrial fibrillation. He appears to be in a regular rhythm on exam today. His heart rate is well controlled at this time. He will continue Amiodarone 100mg daily, carvedilol 25mg twice daily, and Eliquis 5mg twice daily. He will continue to monitor for any concerning symptoms of atrial fibrillation. (3) Aortic stenosis: Status: Acute Claire Chavez NP, DIRECTOR [employer]PPLY CHAIN-C: Patient has a history of aortic valve stenosis. His most recent echocardiogram from 09/2021 demonstrated mild aortic stenosis. We will continue to monitor this with history, exam, and echocardiograms as deemed appropriate. (4) Syncope and collapse: Status: Acute Claire Chavez NP, DIRECTOR [employer]PPLY CHAIN-C: Patient has a history of syncope and collapse. He denies any recent symptoms or events. He will continue to monitor for any concerning symptoms. (5) Essential hypertension: Status: Chronic Comment: CONTROLLED ON MED Plan - Dyan Chavez DIRECTOR SUPPLY CHAIN, DIRECTOR SUPPLY CHAIN-C: Patient has a history of hypertension. His blood pressure is elevated in the office today, and he does bring elevated readings with him. He will continue carvedilol 25mg twice daily, lisinopril 30mg twice daily, isosorbide 60mg twice daily. He will be asked to decrease his Hydralazine dose to twice daily, and start Amlodipine to 2.5mg daily. He will continue to monitor his blood pressures at home. (6) Hyperlipidemia: Status: Chronic Qualifiers: Hyperlipidemia type: unspecified Qualified Code(s): E78.5 - Hyperlipidemia, unspecified Plan - Dyan Chavez DIRECTOR SUPPLY CHAIN, DIRECTOR SUPPLY CHAIN-C: Patient has a history of hyperlipidemia. His PCP monitors this. He will continue rosuvastatin 20mg daily, along with aggressive risk factor and lifestyle modifications. Plan Details Other Medications: New: amlodipine 2.5 mg PO DAILY 30 tabs 11RF Other Orders: Orders: Partial Thromboplast Time Today I48.91 Prothrombin Time w/INR Today I48.91 Additional Comments: Patient will follow up in 4-6 weeks or sooner if needed. Thank you for allowing me to participate in the care of your patient. Please don't hesitate to call if any issues arise. This note was generated using a voice recognition system and there may be incorrect words, spelling, or punctuation that were not noted when reviewing the office note prior to saving. Follow Up: 4-6 weeks (DIRECTOR SUPPLY CHAIN/PA) 12-13 Months (PFM) Cancel 12/18/21 with NEAL NICKERSON (Procedure Consent) Procedure Criteria Procedure Criteria: Yes Elective The surgeon/proceduralist and patient have discussed in detail the risk of exposure to and/or potential harm posed by the COVID-19 virus with having a surgery/procedure at this time versus the risk of delaying the surgery/procedure. It is not possible to know either the risk of delaying the surgery or procedure or chance of getting an infection with perfect accuracy, but a joint decision was made between the patient and the surgeon/proceduralist to proceed at this time with the scheduled surgery/procedure as indicated on the consent form. Coding Level of Care Code Off vis,est,level 4 Diagnoses Abnormal stress test R94.39 Paroxysmal atrial fibrillation I48.0 Aortic stenosis I35.0 Syncope and collapse R55 Essential hypertension I10 Hyperlipidemia E78.5 Hyperlipidemia type: unspecified Coding Level of Care Code Off vis,est,level 4 Diagnoses Abnormal stress test R94.39 Paroxysmal atrial fibrillation I48.0 Aortic stenosis I35.0 Syncope and collapse R55 Essential hypertension I10 Hyperlipidemia E78.5 Hyperlipidemia type: unspecified 12/13/21 1317<Electronically signed by Dyan Chavez DIRECTOR SUPPLY CHAIN DIRECTOR SUPPLY CHAIN-C>Date Dyan Chavez NP DIRECTOR [employer] CHAIN-C 12/13/21 1649<Electronically signed by Jayme Lino MD>Cosigner Signature:Date (if applicable)Jayme Lino MD CC: Dr. Jayme Yang MD ~
== END 2022-01-09 23:59 | disposition home or self-care (01) ==
LOC: PAT 01-12 16:14
PROVIDERS: Nurse Practitioner Gerontology; PCP Family Medicine; Referring Provider Internal Medicine Cardiovascular Disease; Visit Provider Internal Medicine Cardiovascular Disease
DX: R94.39 Abnormal result of other cardiovascular function study (principal); I48.91 Unspecified atrial fibrillation
CPT/HCPCS: 36415; 71046; 80048; 85025; 85610; 85730

== ENCOUNTER 2022-01-11 13:05 | Outpatient (CLI) | payer MEDICARE, SELFPAY ==
[2022-01-11 14:04] LABS: PSA,Total- Diagnostic 6.33 ng/mL (0.0-4.0)
== END 2022-01-11 23:59 | disposition home or self-care (01) ==
LOC: LAB 13:07
PROVIDERS: PCP Family Medicine; Referring Provider Urology; Visit Provider Urology
DX: N40.0 Benign prostatic hyperplasia without lower urinary tract symptoms (principal)
CPT/HCPCS: 36415; 84153

== ENCOUNTER → 2022-02-13 | Outpatient (CLI) | payer MEDICARE, SELFPAY ==
[2022-02-13 12:31] LABS: Absolute Neutrophil Count 4.6 X10^3/uL (2.0-7.7); Basophil# 0.02 X10^3/uL; Basophil% 0.3 % (0-1); Eosinophil# 0.17 X10^3/uL; Eosinophils% 2.3 % (0-5); Hematocrit 41.2 % (40-54); Hemoglobin 13.9 g/dL (13.0-16.5); Lymphocyte % 27.2 % (19-41); Mean Corp Hgb Conc 33.7 g/dL (32-36); Mean Corpuscular Hgb 31.1 pg (27.0-32.0); Mean Corpuscular Volume 92.2 fL (80-94); Mean Platelet Vol. 11.1 fl (6.2-12.0); Monocyte% 8.2 % (0-10); NRBC Flagged by Analyzer 0 % (0-5); Neutrophil # 4.56 X10^3/uL (2.7-7.7); Neutrophil % 61.9 % (47-70); Platelet Count 209 K/mm3 (150-450); RBC Distribution Width CV 15.9 % (11.6-14.6); RBC Distribution Width SD 54.5 fl (35.1-43.9); Red Blood Count 4.47 M/mm3 (4.6-6.2); White Blood Count 7.4 K/mm3 (4.4-11.0)
[2022-02-13 13:03] LABS: Anion Gap 4 (5-15); BUN 18 mg/dL (7-18); BUN/Creat Ratio 11.3 RATIO (10-20); Calcium,Total 8.6 mg/dL (8.5-10.1); Chloride 109 mmol/L (98-107); Creatinine, Serum 1.59 mg/dL (0.70-1.30); EST Glomerular Filtration Rate 45 mL/min (>60); Est Glom Filt Rate - Afr Amer 55 mL/min (>60); Glucose 153 mg/dL (74-106); Potassium 3.8 mmol/L (3.5-5.1); Sodium Level 141 mmol/L (136-145); Thyroid Stim Hormone (TSH) 3.71 uIU/mL (0.358-3.74)
== END | disposition home or self-care (01) ==
LOC: LAB 11:43
PROVIDERS: Nurse Practitioner Gerontology; PCP Family Medicine; Visit Provider Nurse Practitioner Adult Health
DX: R53.83 Other fatigue (principal)
CPT/HCPCS: 36415; 80048; 84443; 85025

== ENCOUNTER → 2022-03-28 | Outpatient (CLI) | payer MEDICARE, SELFPAY ==
[2022-03-28 15:10] LABS: Absolute Lymphocyte Count 2.57 X10^3/uL (0.83-4.51); Basophil# 0.02 X10^3/uL; Basophil% 0.3 % (0-1); Eosinophil# 0.22 X10^3/uL; Eosinophils% 2.9 % (0-5); Hematocrit 40.2 % (40-54); Hemoglobin 12.9 g/dL (13.0-16.5); Lymphocyte # 2.57 X10^3/ul (0.83-4.51); Lymphocyte % 34.1 % (19-41); Mean Corp Hgb Conc 32.1 g/dL (32-36); Mean Corpuscular Hgb 30.6 pg (27.0-32.0); Mean Corpuscular Volume 95.5 fL (80-94); Monocyte# 0.74 X10^3/uL; Monocyte% 9.8 % (0-10); NRBC Flagged by Analyzer 0 % (0-5); Neutrophil # 3.96 X10^3/uL (2.7-7.7); Neutrophil % 52.6 % (47-70); Platelet Count 202 K/mm3 (150-450); RBC Distribution Width CV 15.8 % (11.6-14.6); RBC Distribution Width SD 55.7 fl (35.1-43.9); Red Blood Count 4.21 M/mm3 (4.6-6.2); White Blood Count 7.5 K/mm3 (4.4-11.0)
[2022-03-28 15:53] LABS: ALB/GLOB Ratio 0.9 RATIO (0.9-2.4); AST(SGOT) 22 U/L (15-37); Alanine Aminotransfer ALT/SGPT 35 U/L (16-61); Albumin, Serum 3.5 g/dL (3.2-5.0); Alkaline Phosphatase 60 U/L (45-117); Anion Gap 5 (5-15); BUN 18 mg/dL (7-18); BUN/Creat Ratio 11.4 RATIO (10-20); Calcium,Total 8.5 mg/dL (8.5-10.1); Chloride 110 mmol/L (98-107); Creatinine, Serum 1.58 mg/dL (0.70-1.30); EST Glomerular Filtration Rate 45 mL/min (>60); Est Glom Filt Rate - Afr Amer 55 mL/min (>60); Globulin 3.8 g/dL (2.2-4.2); Glucose 115 mg/dL (74-106); Potassium 3.8 mmol/L (3.5-5.1); Protein, Total 7.3 g/dL (6.4-8.2); Sodium Level 143 mmol/L (136-145)
== END | disposition home or self-care (01) ==
LOC: MTLAB 13:02
PROVIDERS: PCP Family Medicine; Referring Provider Internal Medicine Rheumatology; Visit Provider Internal Medicine Rheumatology
DX: M06.09 Rheumatoid arthritis without rheumatoid factor, multiple sites (principal); K51.80 Other ulcerative colitis without complications; I48.0 Paroxysmal atrial fibrillation; M15.9 Polyosteoarthritis, unspecified; K21.00 Gastro-esophageal reflux disease with esophagitis, without bleeding; M47.897 Other spondylosis, lumbosacral region; M51.37 Other intervertebral disc degeneration, lumbosacral region; I10 Essential (primary) hypertension; Z79.899 Other long term (current) drug therapy
CPT/HCPCS: 36415; 80053; 85025

== ENCOUNTER → 2022-04-12 | Outpatient (CLI) | payer MEDICARE, SELFPAY ==
[2022-04-12 10:08] LABS: Hematocrit 40.4 % (40-54); Hemoglobin 13.3 g/dL (13.0-16.5); Mean Corp Hgb Conc 32.9 g/dL (32-36); Mean Corpuscular Volume 94.2 fL (80-94); Mean Platelet Vol. 11.2 fl (6.2-12.0); Platelet Count 198 K/mm3 (150-450); RBC Distribution Width CV 15.6 % (11.6-14.6); Red Blood Count 4.29 M/mm3 (4.6-6.2); White Blood Count 6.9 K/mm3 (4.4-11.0)
[2022-04-12 10:18] LABS: Protein, Urine (Random) 63.3 mg/dL (<11.9); Protein:Creat Ratio 804 mg/g CRE (0-200)
[2022-04-12 10:21] LABS: Albumin, Serum 3.6 g/dL (3.2-5.0); BUN 20 mg/dL (7-18); Calcium,Total 8.7 mg/dL (8.5-10.1); Chloride 111 mmol/L (98-107); Creatinine, Serum 1.66 mg/dL (0.70-1.30); EST Glomerular Filtration Rate 43 mL/min (>60); Est Glom Filt Rate - Afr Amer 52 mL/min (>60); Glucose 86 mg/dL (74-106); PTHIN 52.7 pg/mL (18.4-80.1); Phosphorus 3.3 mg/dL (2.5-4.9); Potassium 3.7 mmol/L (3.5-5.1); Sodium Level 143 mmol/L (136-145)
== END | disposition home or self-care (01) ==
LOC: MTLAB 08:38
PROVIDERS: PCP Family Medicine; Referring Provider Internal Medicine Nephrology; Visit Provider Internal Medicine Nephrology
DX: E11.22 Type 2 diabetes mellitus with diabetic chronic kidney disease (principal); N18.32 Chronic kidney disease, stage 3b
CPT/HCPCS: 36415; 80069; 82570; 83970; 84156; 85027

== ENCOUNTER → 2022-06-21 | Outpatient (CLI) | payer MEDICARE, SELFPAY ==
[2022-06-21 08:15] VITALS: PULSE 101; PULSE 104; PULSE 105; PULSE 88; PULSE 91; PULSE 93; PULSE 98; O2SAT 92; O2SAT 93; O2SAT 95
--- NOTE | 2022-06-22 07:30 | PCM.PSN.6M ---
PSN 6 Minute Walk Test 6 Minute Walk Test 6 Minute Walk Test: 6 Minute Walk Test PSN:6-Minute Walk Test Start: 06/21/22 08:54 Freq: Status: Active Protocol: RESP.6MINW Document 06/21/22 08:15 CHITO (Rec: 06/21/22 08:59 CHITO [id number]) 6 Minute Walk Test Date Performed 06/21/22 Time Performed 08:15 Height 5 ft 7 in Weight: 204 lb Weight in Pounds 204.[address]: Aquiles Modi Assistive device used: Cane Pre-test Oxygen Delivery Method Room Air Pulse Ox (%) 93 Pulse Rate (60-100 beats/min) 88 Dyspnea Lobo Scale (0-10) 0 Exertion Lobo Scale (6-20) 6 1st minute Oxygen Delivery Method Room Air Pulse Ox (%) 92 Pulse Rate (60-100 beats/min) 93 2nd minute Oxygen Delivery Method Room Air Pulse Ox (%) 92 Pulse Rate (60-100 beats/min) 98 3rd minute Oxygen Delivery Method Room Air Pulse Ox (%) 92 Pulse Rate (60-100 beats/min) 101 H 4th minute Oxygen Delivery Method Room Air Pulse Ox (%) 93 Pulse Rate (60-100 beats/min) 105 H 5th minute Oxygen Delivery Method Room Air Pulse Ox (%) 92 Pulse Rate (60-100 beats/min) 105 H 6th minute Oxygen Delivery Method Room Air Pulse Ox (%) 92 Pulse Rate (60-100 beats/min) 104 H Dyspnea [place]obo Scale (0-10) 0 Exertion [place]obo Scale (6-20) 11 Post-test Oxygen Delivery Method Room Air Pulse Ox (%) 95 Pulse Rate (60-100 beats/min) 91 Full Laps Walked 17 Partial Lap, Number of Tiles Walked 5 Total Distance Walked (ft) 1008 Interpretation Interpretation: The patient ambulated 1008 feet over the course of 6 minutes beginning on room air with the use of a cane. Pretesting oxygen saturation was noted to be 93% on room air. With ambulation, the fabienne oxygen saturation was 92%. There was no significant exertional oxygen desaturation. Recommendations Recommendations: There is no indication for the use of supplemental oxygen at this time.
== END | disposition home or self-care (01) ==
LOC: PSN 08:09
PROVIDERS: PCP Family Medicine; Referring Provider Internal Medicine Critical Care Medicine; Visit Provider Internal Medicine Critical Care Medicine
DX: I27.20 Pulmonary hypertension, unspecified (principal)
CPT/HCPCS: 94618

== ENCOUNTER → 2022-07-17 | Outpatient (CLI) | payer MEDICARE, SELFPAY ==
[2022-07-17 11:46] LABS: Anion Gap 5 (5-15); BUN 26 mg/dL (7-18); Calcium,Total 9.1 mg/dL (8.5-10.1); Chloride 110 mmol/L (98-107); Creatinine, Serum 1.53 mg/dL (0.70-1.30); EST Glomerular Filtration Rate 47 mL/min (>60); Est Glom Filt Rate - Afr Amer 57 mL/min (>60); Glucose 146 mg/dL (74-106); Potassium 3.8 mmol/L (3.5-5.1); Sodium Level 141 mmol/L (136-145)
== END | disposition home or self-care (01) ==
PROVIDERS: PCP Family Medicine; Referring Provider Nurse Practitioner Gerontology; Visit Provider Nurse Practitioner Gerontology
DX: I10 Essential (primary) hypertension (principal)
CPT/HCPCS: 36415; 80048

== ENCOUNTER → 2022-08-08 | Outpatient (CLI) | payer MEDICARE, SELFPAY | END | disposition home or self-care (01) | LOC: CVS 08:39 | PROVIDERS: PCP Family Medicine; Referring Provider Nurse Practitioner Gerontology; Visit Provider Nurse Practitioner Gerontology | DX: R03.0 Elevated blood-pressure reading, without diagnosis of hypertension (principal) | CPT/HCPCS: 93788 ==

== ENCOUNTER → 2022-09-06 | Outpatient (CLI) | payer MEDICARE, SELFPAY ==
--- NOTE | 2022-09-06 16:05 | RAD_ITS ---
EXAM: XR CHEST, 2 VIEWS CLINICAL INDICATION: Rib pain TECHNIQUE: Frontal and lateral views of the chest. This report was created using [employer] report generation technology. COMPARISON: XR Chest dated 12/21/2021 FINDINGS: LUNGS AND PLEURAL SPACES: Normal. No consolidation or edema. No pneumothorax. No effusion. HEART: Normal heart size. MEDIASTINUM: No mediastinal or hilar mass. BONES/JOINTS: Degenerative changes of both shoulders. SOFT TISSUES: Normal. RAD/Chest PA and Lateral IMPRESSION: No acute cardiopulmonary abnormality. No interval change. Electronically Signed: Shoaib Clark MD at 16:21 EST ,
[2022-09-06 16:50] LABS: Absolute Lymphocyte Count 2.77 X10^3/uL (0.83-4.51); Absolute Neutrophil Count 2.8 X10^3/uL (2.0-7.7); Basophil# 0.04 X10^3/uL; Basophil% 0.6 % (0-1); Eosinophil# 0.43 X10^3/uL; Eosinophils% 6.4 % (0-5); Hematocrit 40.5 % (40-54); Hemoglobin 13.6 g/dL (13.0-16.5); Lymphocyte # 2.77 X10^3/ul (0.83-4.51); Lymphocyte % 41.2 % (19-41); Mean Corp Hgb Conc 33.6 g/dL (32-36); Mean Corpuscular Hgb 30.7 pg (27.0-32.0); Mean Corpuscular Volume 91.4 fL (80-94); Mean Platelet Vol. 11.1 fl (6.2-12.0); Monocyte# 0.71 X10^3/uL; Monocyte% 10.5 % (0-10); NRBC Flagged by Analyzer 0 % (0-5); Neutrophil # 2.77 X10^3/uL (2.7-7.7); Neutrophil % 41.2 % (47-70); Platelet Count 181 K/mm3 (150-450); RBC Distribution Width CV 15.8 % (11.6-14.6); RBC Distribution Width SD 53.2 fl (35.1-43.9); Red Blood Count 4.43 M/mm3 (4.6-6.2); White Blood Count 6.7 K/mm3 (4.4-11.0)
[2022-09-06 17:23] LABS: Vitamin D,25 Hydroxy 47.3 ng/mL
[2022-09-06 17:29] LABS: Anion Gap 5 (5-15); BUN 24 mg/dL (7-18); BUN/Creat Ratio 14.5 RATIO (10-20); Calcium,Total 8.7 mg/dL (8.5-10.1); Chloride 106 mmol/L (98-107); Creatinine, Serum 1.65 mg/dL (0.70-1.30); EST Glomerular Filtration Rate 43 mL/min (>60); Est Glom Filt Rate - Afr Amer 52 mL/min (>60); Glucose 121 mg/dL (74-106); Potassium 3.5 mmol/L (3.5-5.1); Sodium Level 139 mmol/L (136-145); T4 Free Direct 0.93 ng/dL (0.76-1.46); Thyroid Stim Hormone (TSH) 1.55 uIU/mL (0.358-3.74)
== END | disposition home or self-care (01) ==
LOC: RAD 16:00
PROVIDERS: PCP Family Medicine; Referring Provider Nurse Practitioner Gerontology; Visit Provider Nurse Practitioner Gerontology
DX: R53.83 Other fatigue (principal); E55.9 Vitamin D deficiency, unspecified; R07.9 Chest pain, unspecified
CPT/HCPCS: 36415; 71046; 80048; 82306; 84439; 84443; 84481; 85025

== ENCOUNTER 2022-10-02 10:24 | Emergency (ER) | payer MEDICARE, SELFPAY ==
[2022-10-02 10:25] VITALS: BP 125/75; PULSE 85; RESP 14; TEMP 36.3; O2SAT 94; BMI 35.0
--- NOTE | 2022-10-02 11:19 | RAD_ITS ---
STUDY: X-RAY - RIGHT KNEE REASON FOR EXAM: Male, 77 years old. PAIN, REPLACEMENT X 23 YRS TECHNIQUE: 4 view(s) of the knee. COMPARISON: None. FINDINGS: Tricompartmental knee prosthetic components are present demonstrating good bony contact and alignment. There are no hardware complications. Normal proximal tibiofibular articulation. There is no demonstrated fracture. A small joint effusion is present. A small suprapatellar loose body is also visualized. There is mild thickening of the patellar tendon and prepatellar soft tissue regions. Atherosclerotic calcifications are present. RAD/Knee 4 or More Views IMPRESSION: 1. Degenerative arthrosis. Mild anterior soft tissue swelling Electronically Signed: Lazarus Weinstein MD at 12:09 EST Reading Location ID and State: [address] [place] [address] , Service support ,
--- NOTE | 2022-10-02 11:20 | EDS_ITS ---
HPI <Dr. Milton Mckinley MD - Last Filed: 10/02/22 15:24> History of Present Illness Chief Complaint: Lower Extremity Injury Informant: patient Onset/Context/Timing Onset: Days (2-3) Context: Gradual Onset Timing: Continuous Quality of Pain: Aching Location: R knee Current Severity: Severe Maximum Severity: Severe Worsened by: movement, bearing weight Relieved by: rest/remaining still Associated Symptoms Associated Symptoms: Negative for Parasthesia, Weakness or Loss of Funtion Narrative Narrative: 77-year-old male presenting with spontaneous onset of pain, redness, swelling right knee with very painful to move. Started 2 or 3 days ago. No injury or falls. No systemic symptoms such as fevers. He is anticoagulated due to atrial fibrillation. Had a knee replacement in the right knee more than 20 years ago by an orthopedic surgeon at [facility] who is no longer working. [facility] <Dr. Milton Mckinley MD - Last Filed: 10/02/22 15:24> [facility] Medical History Abnormal stress test Acute bronchitis with bronchospasm Acute respiratory insufficiency Ambulates with cane Aortic stenosis Arthritis Asthma Asymptomatic hypertensive urgency Atherosclerotic heart disease of [place] coronary artery without angina pectoris Atrial fibrillation with RVR Back pain Bronchitis CAD in [place] artery Cardiology follow-up encounter Chronic anticoagulation Closed head injury Colitis Concussion Covid-19 COVID-19 virus infection CPAP (continuous positive airway pressure) dependence Dementia Diabetes Diabetes Diverticula of colon DM2 (diabetes mellitus, type 2) Essential hypertension Excessive bleeding Former smoker Gastric reflux History of atrial fibrillation History of echocardiogram History of edema History of renal disease History of steroid therapy History of stress test Hyperlipidemia Hypertensive urgency Inflammatory bowel disease Injury of head and neck Intractable pain Kidney stones Loss of consciousness Nonrheumatic aortic (valve) stenosis NSVT (nonsustained ventricular tachycardia) SUPA (obstructive sleep apnea) Paroxysmal atrial fibrillation Pulmonary hypertension Renal colic on left side Rheumatoid aortitis Rheumatoid arthritis Rhinovirus Sepsis Severe acute respiratory syndrome coronavirus 2 (SARS-CoV-2) infection ruled out Severe sepsis Sleep apnea SOB (shortness of breath) Ureterolithiasis Wears dentures Wears glasses Wears hearing aid Home Medications glimepiride 2 mg tablet 2 mg PO DAILY diabetes 01/22/18 [History Last Taken 10/01/22] qoxwhkxk-kgh-yhsgq acid 300 mcg-lycopene 600 mcg-lutein 300 mcg tablet 1 ea PO DAILY supplement 09/17/18 [History Last Taken 10/01/22] duloxetine 60 mg capsule,delayed release (Cymbalta) 60 mg PO DAILY depression 06/02/19 [History Last Taken 10/02/22] buspirone 7.5 mg tablet 7.5 mg PO BID mental health 04/12/21 [History Last Taken 10/02/22] albuterol sulfate 90 mcg/actuation aerosol inhaler 2 puff inhalation Q6H PRN SOB 08/09/21 [History Last Taken Unknown] rosuvastatin 20 mg tablet 20 mg PO DAILY #90 tabs 11/21/21 [Rx Last Taken 10/01/22] apixaban 5 mg tablet 5 mg PO BID afib #180 tabs 11/22/21 [Rx Last Taken 10/02/22] potassium chloride 10 mEq tablet,extended release(part/cryst) 10 meq PO DAILY #90 tabs 11/22/21 [Rx Last Taken 10/01/22] omega-3 fatty acids 1,000 mg PO BID 12/13/21 [History Last Taken 10/02/22] calcium carbonate 600 mg-vitamin D3 5 mcg (200 unit) tablet 1 tab PO DAILY supplement 12/21/21 [History Last Taken 10/01/22] latanoprost 0.005 % eye drops 1 drp LEFT EYE QPM eye health 12/22/21 [History Last Taken 10/01/22] timolol 0.25 % eye drops 1 drp LEFT EYE DAILY 12/22/21 [History Last Taken 10/02/22] gabapentin 600 mg tablet 300 mg PO BID neuropathy 01/26/22 [History Last Taken 10/02/22] ipratropium bromide 21 mcg (0.03 %) nasal spray 2 spray intranasal TID PRN ALLERGIES 01/26/22 [History Last Taken Unknown] hydralazine 100 mg tablet 100 mg PO TID BP #90 tabs 05/23/22 [Rx Last Taken 10/02/22] hydrochlorothiazide 25 mg tablet 25 mg PO DAILY #30 tabs 07/04/22 [Rx Last Taken 10/02/22] isosorbide mononitrate 60 mg tablet,extended release 24 hr 60 mg PO BID 09/06/22 [History Last Taken 10/02/22] amiodarone 200 mg tablet 100 mg PO DAILY HEART 10/02/22 [History Last Taken 10/02/22] amlodipine 2.5 mg tablet 2.5 mg PO DAILY BP 10/02/22 [History Last Taken 10/02/22] carvedilol 25 mg tablet 25 mg PO BID HEART 10/02/22 [History Last Taken 10/02/22] cholecalciferol (vitamin D3) 25 mcg (1,000 unit) capsule 25 mcg PO DAILY SUPPLEMENT 10/02/22 [History Last Taken 10/01/22] doxazosin 4 mg tablet 4 mg PO BID HEART 10/02/22 [History Last Taken 10/02/22] doxycycline monohydrate 100 mg capsule 100 mg PO BID #27 CAPSULES 10/02/22 [Rx Last Taken Unknown] esomeprazole magnesium 20 mg capsule,delayed release (Nexium) 20 mg PO DAILY GERD 10/02/22 [History Last Taken 10/02/22] loratadine 10 mg tablet 10 mg PO DAILY ALLERGIES 10/02/22 [History Last Taken 10/01/22] losartan 100 mg tablet 100 mg PO DAILY BP 10/02/22 [History Last Taken 10/02/22] Allergy/AdvReac Type Severity Reaction Status Date / Time aspirin Allergy Severe Mouth Verified 10/02/22 10:26 swelling donepezil [From Aricept] AdvReac Severe Swelling Verified 10/02/22 10:26 minoxidil AdvReac Severe swelling Verified 10/02/22 10:26 morphine AdvReac Severe UNABLE TO Verified 10/02/22 10:26 URINATE Family History Mother Heart disease Diabetes Father Heart disease Lung disease Brother Heart disease Lung disease Cancer prostate, pancreatic Sister Diabetes Cancer uterine Surgical History Cervical vertebral fusion History of back surgery History of bilateral knee replacement History of left heart catheterization (LHC) (~12/22/21) History of removal of cyst Hx of colectomy Hx of cystoscopy Hx of surgical procedure Social History Smoking Status: Former smoker how long ago did patient quit smokin, 2ppd second hand exposure: Yes alcohol intake: never substance use type: does not use caffeine: Yes Type: coffee Number of servings: 2 ROS <Dr. Milton Mckinley MD - Last Filed: 10/02/22 15:24> ROS ED Constitutional Constitutional ED: Denies chills or fever(s) Musculoskeletal Musculoskeletal: Reports extremity pain; Denies neck pain Integumentary Reports as per HPI and erythema; Denies Abrasions, rash or wounds Neurologic Neurologic: Denies paresthesias or weakness EXAM <Dr. Milton Mckinley MD - Last Filed: 10/02/22 15:24> Physical Exam Const Vital Signs: 10/02/22 10:25 10/02/22 14:39 Temperature 97.4 F L Temperature Source Temporal Pulse Rate 85 69 Respiratory Rate 14 17 Blood Pressure 125/75 H 157/86 H Blood Pressure Mean 91 109 Pulse Ox 94 94 Oxygen Delivery Method Room Air Room Air Positive well nourished and well developed General Appearance ED: well developed and NAD Neck full ROM and supple Cardio peripheral pulses 2+ throughout Back/Spine normal ROM and normal to inspection Extremity Extremity Narrative: Swollen right knee there is probably an effusion. The anterior knee is erythematous and hot compared to surrounding tissues. Erythema blanches and there is no purpura or ecchymosis or petechia. There is no extension of the erythema proximally or distally, there is no lymphangitis, palpable cords, or inguinal lymphadenopathy. Just touching the anterior surface of the knee is extremely tender. There is short arc range of motion, and the patient is able to range almost fully, he just states that it really hurts. Neuro oriented x3, no focal motor deficits and no sensory deficits noted Sensorium / Orientation: alert Psych mental status grossly normal and thought process normal Skin no wounds Rashes: no rashes <Dr. Dom Rojo MD - Last Filed: 10/02/22 18:31> Physical Exam Const Vital Signs: 10/02/22 10:25 10/02/22 14:39 Temperature 97.4 F L Temperature Source Temporal Pulse Rate 85 69 Respiratory Rate 14 17 Blood Pressure 125/75 H 157/86 H Blood Pressure Mean 91 109 Pulse Ox 94 94 Oxygen Delivery Method Room Air Room Air MDM <Dr. Milton Mckinley MD - Last Filed: 10/02/22 15:24> MDM MDM Narrative Medical decision making narrative: Differential here includes cellulitis anterior, with regards to the skin and not including the joint, septic arthritis with hardware, gout, pseudogout, other inflammatory joint conditions. X-rays 4 views right knee on my interpretation shows intact hardware nothing else acute, radiology in agreement. Labs are nonspecific although his uric acid is elevated, his CRP and ESR are elevated as well. His white count is at the high end of normal no left shift or bandemia. This does not narrow down the differential, although it does make gout possibly a little more possible. I discussed with Dr. Castro who was on for orthopedics, he recommends I do an arthrocentesis, under sterile prep which was done see the procedure note. I did discuss with the patient the risks of introducing infection to the joint which we took care not to do within my control, in addition to the possibility of hemarthrosis since he is anticoagulated. He understands. I use a smaller needle, 21-gauge for the procedure to try to minimize against this and put an ice pack on his knee immediately afterwards. There is minimal bleeding from the skin. I was not able to get any fluid out to help narrow the differential. Discussed again with Dr. Castro; he advised holding off on giving antibiotics yet, and monitoring the patient here in emergency department until he can come evaluate him further. Checked out to oncoming emergency physician at shift change for final disposition after this encounter. Lab Data Attestation: I reviewed the patient's lab results. Labs: Laboratory Results - last 24 hr 10/02/22 10/02/22 10/02/22 11:32 11:32 16:45 WBC 10.3 RBC 4.31 L Hgb 13.6 Hct 39.1 L MCV 90.7 MCH 31.6 MCHC 34.8 RDW Std Deviation 53.1 H RDW Coeff of Azeem 15.9 H Plt Count 176 MPV 10.7 Immature Gran % (Auto) 0.300 Neut % (Auto) 59.5 Lymph % (Auto) 24.9 Burnet % (Auto) 12.2 H Eos % (Auto) 2.8 Baso % (Auto) 0.3 Absolute Neuts (auto) 6.1 Absolute Lymphs (auto) 2.56 Nucleated RBC % 0 ESR 28 H Sodium 138 Potassium 3.5 Chloride 103 Carbon Dioxide 28.0 Anion Gap 7 BUN 22 H Creatinine 1.82 H Estim Creat Clear Calc 31.27 Est GFR (MDRD) Af Amer 47 L Est GFR (MDRD) Non-Af 39 L BUN/Creatinine Ratio 12.1 Glucose 130 H Uric Acid 8.3 H Calcium 8.7 C-React Prot Ext Range 26.30 H Fluid Crystals Cancelled Fluid Crystal Source Cancelled Fl Crystal Path Review Cancelled Synovial WBC 0.2970 H Synovial RBC 0.[address] H Synovial Tot Cell Ct 0.3170 H Synov Polynuclear WBCs 0.130 Synov Mononuclear WBCs 0.167 Synovial Polynuclear % 43.7 Synovial Mononuclear % 56.3 Radiography Diagnostic Testing: Clinical Impression(s) from Imaging Studies Knee X-Ray 10/02/22 11:19 IMPRESSION: 1. Degenerative arthrosis. Mild anterior soft tissue swelling Electronically Signed: Lazarus Weinstein MD at 12:09 EST Reading Location ID and State: [address] [place] [address] , Service support , <Dr. Dom Rojo MD - Last Filed: 10/02/22 18:31> [facility] MDM Narrative Medical decision making narrative: Differential here includes cellulitis anterior, with regards to the skin and not including the joint, septic arthritis with hardware, gout, pseudogout, other inflammatory joint conditions. X-rays 4 views right knee on my interpretation shows intact hardware nothing else acute, radiology in agreement. Labs are nonspecific although his uric acid is elevated, his CRP and ESR are elevated as well. His white count is at the high end of normal no left shift or bandemia. This does not narrow down the differential, although it does make gout possibly a little more possible. I discussed with Dr. Castro who was on for orthopedics, he recommends I do an arthrocentesis, under sterile prep which was done see the procedure note. I did discuss with the patient the risks of introducing infection to the joint which we took care not to do within my control, in addition to the possibility of hemarthrosis since he is anticoagulated. He understands. I use a smaller needle, 21-gauge for the procedure to try to mi nimize against this and put an ice pack on his knee immediately afterwards. There is minimal bleeding from the skin. I was not able to get any fluid out to help narrow the differential. Discussed again with Dr. Castro; he advised holding off on giving antibiotics yet, and monitoring the patient here in emergency department until he can come evaluate him further. Checked out to oncoming emergency physician at shift change for final disposition after this encounter. Dr. Kramer did see patient. He did perform arthrocentesis. Case was discussed. He requested after the arthrocentesis to administer Rocephin and vancomycin. Cell count is 2970 which is not consistent with pyogenic arthritis. He requested doxycycline 100 mg twice daily for 2 weeks. Contact office for follow-up in [address] Castro is concerned he may have a prepatellar bursitis. Lab Data Labs: Laboratory Results - last 24 hr 10/02/22 10/02/22 10/02/22 11:32 11:32 16:45 WBC 10.3 RBC 4.31 L Hgb 13.6 Hct 39.1 L MCV 90.7 MCH 31.6 MCHC 34.8 RDW Std Deviation 53.1 H RDW Coeff of Azeem 15.9 H Plt Count 176 MPV 10.7 Immature Gran % (Auto) 0.300 Neut % (Auto) 59.5 Lymph % (Auto) 24.9 Burnet % (Auto) 12.2 H Eos % (Auto) 2.8 Baso % (Auto) 0.3 Absolute Neuts (auto) 6.1 Absolute Lymphs (auto) 2.56 Nucleated RBC % 0 ESR 28 H Sodium 138 Potassium 3.5 Chloride 103 Carbon Dioxide 28.0 Anion Gap 7 BUN 22 H Creatinine 1.82 H Estim Creat Clear Calc 31.27 Est GFR (MDRD) Af Amer 47 L Est GFR (MDRD) Non-Af 39 L BUN/Creatinine Ratio 12.1 Glucose 130 H Uric Acid 8.3 H Calcium 8.7 C-React Prot Ext Range 26.30 H Fluid Crystals Cancelled Fluid Crystal Source Cancelled Fl Crystal Path Review Cancelled Synovial WBC 0.2970 H Synovial RBC 0.[address] Cell [address] 0.3170 H Synov Polynuclear WBCs 0.130 Synov Mononuclear WBCs 0.167 Synovial Polynuclear % 43.7 Synovial Mononuclear % 56.3 Radiography Diagnostic Testing: Clinical Impression(s) from Imaging Studies Knee X-Ray 10/02/22 11:19 IMPRESSION: 1. Degenerative arthrosis. Mild anterior soft tissue swelling Electronically Signed: Lazarus Weinstein MD at 12:09 EST Reading Location ID and State: [facility] / [place] , Service support , Procedures <Dr. Milton Mckinley MD - Last Filed: 10/02/22 15:24> Other Procedures Procedure(s): Arthrocentesis right knee: Patient prepped and draped in a sterile fashion initially with isopropanol for local anesthesia outside of the joint medial aspect, followed by chlorhexidine thorough prep, sterile gloves by examiner/proceduralist, followed by a 21-gauge needle into the joint medial aspect retropatella, there is no fluid in the joint space, a scant amount of blood was obtained and that is it. Cleansed the injection site, dressed with bandage, and an ice pack immediately placed on the knee. Tolerated well. No complications. Discharge Plan Triage Chief Complaint: Lower Extremity Injury ED Provider: Milton Mckinley Dx/Rx/DC Orders Clinical Impression: Arthritis of right knee, History of total knee arthroplasty, DM2 (diabetes mellitus, type 2), Nonrheumatic aortic (valve) stenosis, Bursitis, prepatellar, left, Anticoagulant long-term use Instructions: ED Bursitis Prescriptions: New doxycycline monohydrate 100 mg capsule 100 mg PO BID Qty: 27 0RF No Action duloxetine [Cymbalta] 60 mg capsule,delayed release(DR/EC) 60 mg PO DAILY gabapentin 600 mg tablet 300 mg PO BID Rx Instructions: take half a tablet (300mg) twice daily. Dose reduced o/a of myclonic jerks ipratropium bromide 21 mcg (0.03 %) spray,non-aerosol 2 spray intranasal TID PRN (Reason: ALLERGIES) Label Comments: USE 2 SPRAY(S) IN EACH NOSTRIL THREE TIMES DAILY NEEDED isosorbide mononitrate 60 mg tablet extended release 24 hr 60 mg PO BID glimepiride 2 MG tablet 2 mg PO DAILY Label Comments: lxyhhwky-bug-IT-lycopen-lutein 1 EACH tablet 1 ea PO DAILY buspirone 7.5 mg tablet 7.5 mg PO BID Label Comments: TAKE 1 TABLET BY MOUTH TWICE DAILY albuterol sulfate 90 mcg/actuation Hfa Aerosol Inhaler 2 puff INHALATION Q6H PRN (Reason: SOB) omega-3 fatty acids Capsule 1,000 mg PO BID calcium carbonate-vitamin D3 600 mg-5 mcg (200 unit) Tablet 1 tab PO DAILY latanoprost 0.005 % Drops 1 drp LEFT EYE QPM timolol 0.25 % Drops 1 drp LEFT EYE DAILY Label Comments: Takes in morning carvedilol 25 mg tablet 25 mg PO BID losartan 100 mg tablet 100 mg PO DAILY Label Comments: TAKE 1 TABLET BY MOUTH ONCE DAILY loratadine 10 mg Tablet 10 mg PO DAILY esomeprazole magnesium [Nexium] 20 mg Capsule,Delayed Release(Dr/Ec) 20 mg PO DAILY cholecalciferol (vitamin D3) 25 mcg (1,000 unit) Capsule 25 mcg PO DAILY amiodarone 200 mg tablet 100 mg PO DAILY amlodipine 2.5 mg tablet 2.5 mg PO DAILY doxazosin 4 mg tablet 4 mg PO BID Rx Instructions: 4 mg orally twice a day; rosuvastatin 20 mg tablet 20 mg PO DAILY Qty: 90 3RF potassium chloride 10 mEq tablet,ER particles/crystals 10 meq PO DAILY Qty: 90 3RF apixaban 5 mg tablet 5 mg PO BID Qty: 180 3RF hydralazine 100 mg tablet 100 mg PO TID Qty: 90 11RF hydrochlorothiazide 25 mg tablet 25 mg PO DAILY Qty: 30 5RF Primary Care Provider: Jayme Yang Referrals: Jayme Yang MD [Primary Care Provider] - Evin Castro MD [Med Staff - Active Staff] - 1-2 Weeks Disposition Disposition: Home, Self Care
[2022-10-02] MEDS: HYDROcodone Bitartrate/Apap 5/325 Tablet PO (11:33)
[2022-10-02 11:42] LABS: Absolute Lymphocyte Count 2.56 X10^3/uL (0.83-4.51); Absolute Neutrophil Count 6.1 X10^3/uL (2.0-7.7); Basophil# 0.03 X10^3/uL; Basophil% 0.3 % (0-1); Eosinophil# 0.29 X10^3/uL; Eosinophils% 2.8 % (0-5); Erythrocyte Sedimentation Rate 28 mm/hr (0-20); Hematocrit 39.1 % (40-54); Hemoglobin 13.6 g/dL (13.0-16.5); Lymphocyte # 2.56 X10^3/ul (0.83-4.51); Lymphocyte % 24.9 % (19-41); Mean Corp Hgb Conc 34.8 g/dL (32-36); Mean Corpuscular Hgb 31.6 pg (27.0-32.0); Mean Corpuscular Volume 90.7 fL (80-94); Mean Platelet Vol. 10.7 fl (6.2-12.0); Monocyte# 1.25 X10^3/uL; Monocyte% 12.2 % (0-10); NRBC Flagged by Analyzer 0 % (0-5); Neutrophil # 6.12 X10^3/uL (2.7-7.7); Neutrophil % 59.5 % (47-70); Platelet Count 176 K/mm3 (150-450); RBC Distribution Width CV 15.9 % (11.6-14.6); RBC Distribution Width SD 53.1 fl (35.1-43.9); Red Blood Count 4.31 M/mm3 (4.6-6.2); White Blood Count 10.3 K/mm3 (4.4-11.0)
[2022-10-02 11:52] LABS: Anion Gap 7 (5-15); BUN 22 mg/dL (7-18); BUN/Creat Ratio 12.1 RATIO (10-20); Calcium,Total 8.7 mg/dL (8.5-10.1); Chloride 103 mmol/L (98-107); Creatinine, Serum 1.82 mg/dL (0.70-1.30); EST Glomerular Filtration Rate 39 mL/min (>60); Est Glom Filt Rate - Afr Amer 47 mL/min (>60); Estimated Creatinine Clearance 31.27 ml/min; Glucose 130 mg/dL (74-106); Potassium 3.5 mmol/L (3.5-5.1); Sodium Level 138 mmol/L (136-145); Uric Acid 8.3 mg/dL (3.5-7.2)
[2022-10-02] MEDS: Lidocaine 1% (20 ml mdv) 20 ML Vial 3 ML INFILT (13:40)
--- NOTE | 2022-10-02 13:49 | ED.RN ---
PER DR. SYLVESTER NO BLOOD CULTURES NEEDED PRIOR TO ADMINISTRATION OF ANTIBIOTICS.
--- NOTE | 2022-10-02 14:20 | ED.RN ---
PER DR. SYLVESTER, HOLD ANTIBIOTICS UNTIL PT ASSESSED BY DR. DOSHI IN ER.
[2022-10-02 14:39] VITALS: BP 157/86; PULSE 69; RESP 17; O2SAT 94
[2022-10-02] MEDS: Ceftriaxone 1 GM/50 ML BAG IV (17:28)
--- NOTE | 2022-10-02 17:32 | ED.RN ---
THIS RN CALLED PHARMACY TO ENSURE ORIGINAL ANTIBIOTICS SENT UP AT 1342 WERE OKAY TO GIVE PATIENT AT 1734. PHARMACY SAID ORIGINAL CEFTRIAXONE AND VANCOMYCIN HCL WERE STILL GOOD AND OKAYED THIS RN TO GIVE TO PT AT 1734.
[2022-10-02 17:47] LABS: Synovial Fld Mononuclear WBC # 0.167 10^3/ul; Synovial Fld Mononuclear WBC % 56.3 %; Synovial Fld Polynuclear WBC % 43.7 %
[2022-10-02 17:49] LABS: RBC /Synovial Fluid 0.002 10^6/uL (0)
[2022-10-02 18:38] LABS: Lymph 34 %; Monocyte /Synovial Fluid 34 %; Neutrophil 30 % (0-25); Other Cell /Synovial Fluid 2 %
[2022-10-02 18:39] LABS: AUTO B FLUID DILUENT BKGD CT WBC <0.1 RBC <0.01 (W<.1,R<.01); Appearance /Synovial Fluid Sl Cl (CLEAR); Body Fluid QC Type(s) BF1Q; Color / Synovial Fluid Yellow (Pale Yellow)
[2022-10-02 18:42] LABS: Source / Synovial Fluid RIGHT KNEE
[2022-10-02 19:00] VITALS: BP 184/82; PULSE 83; PULSE 85; RESP 18; TEMP 36.4; O2SAT 92
[2022-10-03 13:26] LABS: Pathologist Comment Reviewed
== END 2022-10-02 21:59 | disposition home or self-care (01) ==
PROVIDERS: Emergency Medicine; Emergency Provider Emergency Medicine; PCP Family Medicine; Visit Provider Emergency Medicine
DX: M17.11 Unilateral primary osteoarthritis, right knee (principal); M06.09 Rheumatoid arthritis without rheumatoid factor, multiple sites; F03.90 Unspecified dementia, unspecified severity, without behavioral disturbance, psychotic disturbance, mood disturbance, and anxiety; I27.20 Pulmonary hypertension, unspecified; K51.80 Other ulcerative colitis without complications; E11.22 Type 2 diabetes mellitus with diabetic chronic kidney disease; I48.0 Paroxysmal atrial fibrillation; M70.42 Prepatellar bursitis, left knee; E78.5 Hyperlipidemia, unspecified; I25.10 Atherosclerotic heart disease of native coronary artery without angina pectoris; I35.0 Nonrheumatic aortic (valve) stenosis; K21.00 Gastro-esophageal reflux disease with esophagitis, without bleeding; M47.897 Other spondylosis, lumbosacral region; M51.37 Other intervertebral disc degeneration, lumbosacral region; I12.9 Hypertensive chronic kidney disease with stage 1 through stage 4 chronic kidney disease, or unspecified chronic kidney disease; N18.9 Chronic kidney disease, unspecified; G47.33 Obstructive sleep apnea (adult) (pediatric); K57.90 Diverticulosis of intestine, part unspecified, without perforation or abscess without bleeding; Z96.653 Presence of artificial knee joint, bilateral; Z79.01 Long term (current) use of anticoagulants; Z79.84 Long term (current) use of oral hypoglycemic drugs; Z79.899 Other long term (current) drug therapy; Z86.16 Personal history of COVID-19; Z87.442 Personal history of urinary calculi; Z87.891 Personal history of nicotine dependence
CPT/HCPCS: 20610; 36415; 73564; 80048; 80053; 84550; 85025; 85652; 86140; 87070; 87075; 87205; 89050; 89051; 96365; 96367; 99282; J7040; J7050; A4216

== ENCOUNTER → 2022-10-02 | Outpatient (CLI) | payer MEDICARE, SELFPAY ==
[2022-10-02 09:53] LABS: Absolute Neutrophil Count 5.5 X10^3/uL (2.0-7.7); Basophil# 0.03 X10^3/uL; Basophil% 0.3 % (0-1); Eosinophil# 0.29 X10^3/uL; Eosinophils% 3.1 % (0-5); Hematocrit 38.1 % (40-54); Lymphocyte % 26.9 % (19-41); Mean Corp Hgb Conc 34.1 g/dL (32-36); Mean Corpuscular Hgb 31.1 pg (27.0-32.0); Mean Corpuscular Volume 91.1 fL (80-94); Monocyte# 0.96 X10^3/uL; Monocyte% 10.3 % (0-10); NRBC Flagged by Analyzer 0 % (0-5); Neutrophil # 5.48 X10^3/uL (2.7-7.7); Neutrophil % 58.9 % (47-70); Platelet Count 165 K/mm3 (150-450); RBC Distribution Width CV 15.7 % (11.6-14.6); RBC Distribution Width SD 52.8 fl (35.1-43.9); Red Blood Count 4.18 M/mm3 (4.6-6.2); White Blood Count 9.3 K/mm3 (4.4-11.0)
[2022-10-02 10:30] LABS: AST(SGOT) 29 U/L (15-37); Alanine Aminotransfer ALT/SGPT 47 U/L (16-61); Albumin, Serum 3.9 g/dL (3.2-5.0); Alkaline Phosphatase 59 U/L (45-117); Anion Gap 8 (5-15); BUN 22 mg/dL (7-18); BUN/Creat Ratio 12.6 RATIO (10-20); Calcium,Total 9.1 mg/dL (8.5-10.1); Chloride 103 mmol/L (98-107); Creatinine, Serum 1.74 mg/dL (0.70-1.30); EST Glomerular Filtration Rate 41 mL/min (>60); Est Glom Filt Rate - Afr Amer 49 mL/min (>60); Globulin 3.8 g/dL (2.2-4.2); Glucose 200 mg/dL (74-106); Potassium 3.4 mmol/L (3.5-5.1); Protein, Total 7.7 g/dL (6.4-8.2); Sodium Level 139 mmol/L (136-145)
== END | disposition home or self-care (01) ==
LOC: MTLAB 09:15
PROVIDERS: PCP Family Medicine; Referring Provider Internal Medicine Rheumatology; Visit Provider Internal Medicine Rheumatology
DX: M06.09 Rheumatoid arthritis without rheumatoid factor, multiple sites (principal); I27.20 Pulmonary hypertension, unspecified; K51.80 Other ulcerative colitis without complications; E11.22 Type 2 diabetes mellitus with diabetic chronic kidney disease; I48.0 Paroxysmal atrial fibrillation; M15.9 Polyosteoarthritis, unspecified; K21.00 Gastro-esophageal reflux disease with esophagitis, without bleeding; M47.897 Other spondylosis, lumbosacral region; M51.37 Other intervertebral disc degeneration, lumbosacral region; I12.9 Hypertensive chronic kidney disease with stage 1 through stage 4 chronic kidney disease, or unspecified chronic kidney disease; N18.9 Chronic kidney disease, unspecified; E78.5 Hyperlipidemia, unspecified; G47.33 Obstructive sleep apnea (adult) (pediatric); K57.90 Diverticulosis of intestine, part unspecified, without perforation or abscess without bleeding; Z79.899 Other long term (current) drug therapy; Z87.442 Personal history of urinary calculi
CPT/HCPCS: 36415; 80053; 85025

== ENCOUNTER 2022-10-04 11:55 | Observation (INO) | payer MEDICARE, SELFPAY ==
[2022-10-04] VITALS (11 sets, daily range): BP systolic 138–158; BP diastolic 70–82; PULSE 84–95; RESP 16–20; TEMP 36.8–37.3; O2SAT 88–95; BMI 35.2; BMI 33.9
[2022-10-04] MEDS: HYDROmorphone 1 MG/ML Syringe 0.5 MG IV (12:53)
--- NOTE | 2022-10-04 13:14 | RAD_ITS ---
STUDY: X-RAY - RIGHT HAND REASON FOR EXAM: Male, 77 years old. history of rheumatoid arthritis, 2nd and 3rd digits very swollen TECHNIQUE: 3 view(s) of the hand. COMPARISON: Right hand x-ray dated April 16, 2014 FINDINGS: The soft tissues are moderately swollen throughout the hand. Redemonstration of mild ulnar subluxation of the second and fifth digits. Mild IP and moderate MCP joint space narrowing redemonstrated, with interval worsening since the prior exam. No fractures seen. Moderate narrowing of the IP joint of the thumb with cortical osteophyte formation. Small loose bodies are also present. Normal radiocarpal articulation. Normal distal radioulnar joint. Normal visualized carpal bones. Normal carpal articulations Normal carpometacarpal articulation of the thumb. Normal second through fifth carpometacarpal joints. Normal metacarpi. Normal metacarpophalangeal joint of the thumb. The soft tissue structures are unremarkable. At the sclerotic calcifications are present. RAD/Hand Min 3 Views IMPRESSION: Degenerative joint disease of the hand, as described above. Electronically Signed: Lazarus Weinstein MD at 14:30 EST ,
--- NOTE | 2022-10-04 13:14 | RAD_ITS ---
STUDY: X-RAY - LEFT FOOT CLINICAL: Male, 77 years old. Pain and soft tissue swelling. TECHNIQUE: 3 view(s) of the foot. COMPARISON: None. FINDINGS: Normal talus, calcaneus, and tarsal bones. Normal visualized subtalar, talonavicular, calcaneocuboid, tarsal and tarsometatarsal articulations. Normal metatarsi. There is degenerative arthrosis of the metatarsophalangeal joint of the hallux . Normal tibial and fibular sesamoid bones. Normal interphalangeal joint of the great toe. Normal phalanges of the great toe. Normal second through fifth metatarsophalangeal joints. Normal interphalangeal joints and phalanges of the lesser toes. There is non-specific soft tissue swelling of the foot. Vascular calcification. RAD/Foot min 3 Views IMPRESSION: Degenerative changes at the first metatarsal phalangeal joint. Soft tissue swelling and vascular calcification. Electronically Signed: Shad Macias MD at 14:15 EST ,
--- NOTE | 2022-10-04 13:15 | EDS_ITS ---
HPI History of Present Illness Chief Complaint: Other, Pain/Inj Informant: patient and spouse/S.O. Narrative Narrative: Patient here with spouse for worsening pains for last 4 days. Pain is right hand right knee left foot. Denies trauma. History of rheumatoid arthritis receives treatment every 7 weeks of Remicade. Last treatment was on the a week ago. Pain started 4 days ago. Seen in the ED 2 days ago. States he had a right knee joint aspiration negative for infection. He was using a cane at that time since yesterday need a walker today could not walk. Denies fever. Previous right total knee arthroscopy in the past. History of diabetes. Al lergy to Percocet current severe itching. Patient follows rheumatology Dr. Lott. Review records noted ED report from 2 days ago. Orthopedics was discussed with over phone recommended ED physician performed knee aspiration. This was negative for any septic findings. Crystal analysis was canceled from the lab. Right knee films were performed noting arthritic changes. Prior similar symptoms: Yes PFSH PFSH Medical History Abnormal stress test Acute bronchitis with bronchospasm Acute respiratory insufficiency Ambulates with cane Aortic stenosis Arthritis Asthma Asymptomatic hypertensive urgency Atherosclerotic heart disease of [place] coronary artery without angina pectoris Atrial fibrillation with RVR Back pain Bronchitis CAD in [place] artery Cardiology follow-up encounter Chronic anticoagulation Closed head injury Colitis Concussion Covid-19 COVID-19 virus infection CPAP (continuous positive airway pressure) dependence Dementia Diabetes Diabetes Diverticula of colon DM2 (diabetes mellitus, type 2) Essential hypertension Excessive bleeding Former smoker Gastric reflux History of atrial fibrillation History of echocardiogram History of edema History of renal disease History of steroid therapy History of stress test Hyperlipidemia Hypertensive urgency Inflammatory bowel disease Injury of head and neck Intractable pain Kidney stones Loss of consciousness Nonrheumatic aortic (valve) stenosis NSVT (nonsustained ventricular tachycardia) SUPA (obstructive sleep apnea) Paroxysmal atrial fibrillation Pulmonary hypertension Renal colic on left side Rheumatoid aortitis Rheumatoid arthritis Rhinovirus Sepsis Severe acute respiratory syndrome coronavirus 2 (SARS-CoV-2) infection ruled out Severe sepsis Sleep apnea SOB (shortness of breath) Ureterolithiasis Wears dentures Wears glasses Wears hearing aid Home Medications glimepiride 2 mg tablet 2 mg PO DAILY diabetes 01/22/18 [History Last Taken 10/01/22] mifiemld-nkt-guool acid 300 mcg-lycopene 600 mcg-lutein 300 mcg tablet 1 ea PO DAILY supplement 09/17/18 [History Last Taken 10/01/22] duloxetine 60 mg capsule,delayed release (Cymbalta) 60 mg PO DAILY depression 06/02/19 [History Last Taken 10/02/22] buspirone 7.5 mg tablet 7.5 mg PO BID mental health 04/12/21 [History Last Taken 10/02/22] albuterol sulfate 90 mcg/actuation aerosol inhaler 2 puff inhalation Q6H PRN SOB 08/09/21 [History Last Taken Unknown] rosuvastatin 20 mg tablet 20 mg PO DAILY #90 tabs 11/21/21 [Rx Last Taken 10/01/22] apixaban 5 mg tablet 5 mg PO BID afib #180 tabs 11/22/21 [Rx Last Taken 10/02/22] potassium chloride 10 mEq tablet,extended release(part/cryst) 10 meq PO DAILY #90 tabs 11/22/21 [Rx Last Taken 10/01/22] omega-3 fatty acids 1,000 mg PO BID 12/13/21 [History Last Taken 10/02/22] calcium carbonate 600 mg-vitamin D3 5 mcg (200 unit) tablet 1 tab PO DAILY supplement 12/21/21 [History Last Taken 10/01/22] latanoprost 0.005 % eye drops 1 drp LEFT EYE QPM eye health 12/22/21 [History Last Taken 10/01/22] timolol 0.25 % eye drops 1 drp LEFT EYE DAILY 12/22/21 [History Last Taken 10/02/22] gabapentin 600 mg tablet 300 mg PO BID neuropathy 01/26/22 [History Last Taken 10/02/22] ipratropium bromide 21 mcg (0.03 %) nasal spray 2 spray intranasal TID PRN ALLERGIES 01/26/22 [History Last Taken Unknown] hydralazine 100 mg tablet 100 mg PO TID BP #90 tabs 05/23/22 [Rx Last Taken 10/02/22] hydrochlorothiazide 25 mg tablet 25 mg PO DAILY #30 tabs 07/04/22 [Rx Last Taken 10/02/22] isosorbide mononitrate 60 mg tablet,extended release 24 hr 60 mg PO BID 09/06/22 [History Last Taken 10/02/22] amiodarone 200 mg tablet 100 mg PO DAILY HEART 10/02/22 [History Last Taken 10/02/22] amlodipine 2.5 mg tablet 2.5 mg PO DAILY BP 10/02/22 [History Last Taken 10/02/22] carvedilol 25 mg tablet 25 mg PO BID HEART 10/02/22 [History Last Taken 10/02/22] cholecalciferol (vitamin D3) 25 mcg (1,000 unit) capsule 25 mcg PO DAILY SUPPLEMENT 10/02/22 [History Last Taken 10/01/22] doxazosin 4 mg tablet 4 mg PO BID HEART 10/02/22 [History Last Taken 10/02/22] doxycycline monohydrate 100 mg capsule 100 mg PO BID #27 CAPSULES 10/02/22 [Rx Last Taken Unknown] esomeprazole magnesium 20 mg capsule,delayed release (Nexium) 20 mg PO DAILY GERD 10/02/22 [History Last Taken 10/02/22] loratadine 10 mg tablet 10 mg PO DAILY ALLERGIES 10/02/22 [History Last Taken 10/01/22] losartan 100 mg tablet 100 mg PO DAILY BP 10/02/22 [History Last Taken 10/02/22] Allergy/AdvReac Type Severity Reaction Status Date / Time aspirin Allergy Severe Mouth Verified 10/04/22 11:56 swelling donepezil [From Aricept] AdvReac Severe Swelling Verified 10/04/22 11:56 minoxidil AdvReac Severe swelling Verified 10/04/22 11:56 morphine AdvReac Severe UNABLE TO Verified 10/04/22 11:56 URINATE Family History Mother Heart disease Diabetes Father Heart disease Lung disease Brother Heart disease Lung disease Cancer prostate, pancreatic Sister Diabetes Cancer uterine Surgical History Cervical vertebral fusion History of back surgery History of bilateral knee replacement History of left heart catheterization (LHC) (~12/22/21) History of removal of cyst Hx of colectomy Hx of cystoscopy Hx of surgical procedure Social History Smoking Status: Former smoker how long ago did patient quit smokin, 2ppd second hand exposure: Yes alcohol intake: never substance use type: does not use caffeine: Yes Type: coffee Number of servings: 2 ROS ROS ED Constitutional Constitutional ED: Denies chills, fever(s) or sweats Eyes Eyes: Denies change in vision ENT ENT ED: Denies dysphagia or sore throat Cardiovascular Cardiovascular: Denies chest pain, leg edema, palpitations or racing heartbeat Respiratory/Chest Respiratory/Chest: Denies cough, dyspnea or dyspnea on exertion Gastrointestinal Gastrointestinal: Denies abdominal pain, diarrhea, nausea or vomiting Genitourinary Genitourinary ED: Denies dysuria, hematuria or urinary frequency Musculoskeletal Musculoskeletal: Reports arthralgias, extremity pain and other Details: Right hand, right knee, left foot pain. ; Denies back pain or neck pain Integumentary Denies rash or wounds Neurologic Neurologic: Denies headache(s), paresthesias or weakness EXAM Physical Exam Const Vital Signs: 10/04/22 11:56 10/04/22 12:28 10/04/22 13:00 Temperature 99 F Temperature Source Temporal Pulse Rate 95 90 Respiratory Rate 18 18 Respiratory Effort Normal Non-Labored Respiratory Pattern Normal Blood Pressure 150/82 H 158/78 H Blood Pressure Mean 104 104 Pulse Ox 92 92 Oxygen Delivery Method Room Air Room Air Oxygen Flow Rate (L/min) 10/04/22 13:01 10/04/22 13:01 10/04/22 15:08 Temperature 99.1 F Temperature Source Oral Pulse Rate 89 Respiratory Rate 16 Respiratory Effort Respiratory Pattern Blood Pressure 142/73 H Blood Pressure Mean 96 Pulse Ox 88 92 94 Oxygen Delivery Method Room Air Nasal Cannula Nasal Cannula Oxygen Flow Rate (L/min) 2 2 Positive well nourished and well developed General Appearance ED: well developed and NAD HEENT Reports moist mucous membranes normocephalic and atraumatic Eyes PERRL, EOMs intact bilaterally and conjunctivae normal General Eye ED: Yes normal appearance of both eyes Neck no lymphadenopathy and supple General: Negative for tenderness Chest Wall Chest: Negative for tenderness Resp normal respiratory effort and normal air movement Effort and Inspection: symmetric chest movement; Negative for respiratory distress Cardio regular rate, regular rhythm and no murmurs Peripheral Pulses: pulses 2+ throughout GI normal to inspection, nondistended, normoactive bowel sounds and non-tender Palpation: Negative for guarding or rebound tenderness present Back/Spine no CVA tenderness and no thoracic nor lumbar tenderness Extremity Extremity Narrative: Right upper extremity: Hand examination swelling of the PIP joints of the second and third digits with slight erythema. Pain with movement. Skin intact. Right lower extremity: There is mild knee swelling, pain with movement however none with short arc. There is a midline knee scar. No erythema. Neuro vas intact distally. Left lower extremity: There is erythema of the distal metatarsal of the first joint medial aspect. Skin intact. Neuro vas intact. General Extremety ED: Yes tenderness; Negative for edema General Extremity: Negative for edema Neuro oriented x3 and no sensory deficits noted Sensorium / Orientation: awake and alert Skin no rashes or lesions noted and no wounds MDM MDM MDM Narrative Medical decision making narrative: Patient increasing pain in his right knee now left foot and right digits. And right fingers. History remote arthritis. Differentials from arthritis flare, gouty arthritis. Patient with a knee aspiration 2 days ago cultures were negative therefore septic joint has been ruled out of the knee. Laboratory st udies obtained and reviewed by myself. Inflammatory markers are increased today. Stable chronic kidney disease. I spoke with orthopedist Dr. Castro who managed him 2 days ago, with inability bear weight with her prosthesis recommended CT scan of the right knee to rule any prosthetic fractures which was obtained and negative. 3 view right hand interpreted by myself and read by radiology notes some swelling joints with degenerative changes. Left foot x-ray 3 views also interpreted by myself and read by radiology degenerative changes noted at the first metatarsal phalangeal joint. Since findings are more concerning for gout, unfortunately crystals unable to obtain from his aspiration 2 days ago. Limited options with his Eliquis use and chronic kidney disease he is a diabetic with a glucose 175. We will give Solu-Medrol and will need to monitor his glucose. I spoke with hospitalist Dr. Chari Bellamy who agrees for admission for further inpatient management. Patient has failed outpatient therapy. He has been on doxycycline for prepatellar bursitis. Lab Data Attestation: I reviewed the patient's lab results. Labs: Laboratory Results - last 24 hr 10/04/22 10/04/22 12:50 12:50 WBC 10.4 RBC 4.01 L Hgb 12.5 L Hct 37.2 L MCV 92.8 MCH 31.2 MCHC 33.6 RDW Std Deviation 55.3 H RDW Coeff of Azeem 16.2 H Plt Count 176 MPV 11.7 Immature Gran % (Auto) 0.300 Neut % (Auto) 62.9 Lymph % (Auto) 23.4 [place] % (Auto) 11.5 H Eos % (Auto) 1.7 Baso % (Auto) 0.2 Absolute Neuts (auto) 6.6 Absolute Lymphs (auto) 2.44 Nucleated RBC % 0 ESR 43 H Sodium 136 Potassium 3.3 L Chloride 104 Carbon Dioxide 27.0 Anion Gap 5 BUN 26 H Creatinine 1.86 H Estim Creat Clear Calc 30.60 Est GFR (MDRD) Af Amer 45 L Est GFR (MDRD) Non-Af 38 L BUN/Creatinine Ratio 14.0 Glucose 175 H Calcium 8.4 L C-React Prot Ext Range 122.00 H Radiography Diagnostic Testing: Clinical Impression(s) from Imaging Studies Foot X-Ray 10/04/22 13:14 IMPRESSION: Degenerative changes at the first metatarsal phalangeal joint. Soft tissue swelling and vascular calcification. Electronically Signed: Shad Macias MD at 14:15 EST , Hand X-Ray 10/04/22 13:14 IMPRESSION: Degenerative joint disease of the hand, as described above. Electronically Signed: Lazarus Weinstein MD at 14:30 EST Reading Location ID and State: [facility] / [place] , Service support , Lower Extremity CT 10/04/22 14:44 IMPRESSION: Status post total knee replacement. Small joint effusion. Electronically Signed: Shad Macias MD at 15:43 EST , Discharge Plan Dx/Rx/DC Orders Clinical Impression: Arthralgia of foot, left, Anticoagulant long-term use, Arthralgia of right knee, Inability to walk, Failure of outpatient treatment Disposition Disposition: Acute Care [facility]
[2022-10-04 13:17] LABS: Anion Gap 5 (5-15); BUN 26 mg/dL (7-18); Calcium,Total 8.4 mg/dL (8.5-10.1); Chloride 104 mmol/L (98-107); Creatinine, Serum 1.86 mg/dL (0.70-1.30); EST Glomerular Filtration Rate 38 mL/min (>60); Est Glom Filt Rate - Afr Amer 45 mL/min (>60); Glucose 175 mg/dL (74-106); Potassium 3.3 mmol/L (3.5-5.1); Sodium Level 136 mmol/L (136-145)
[2022-10-04 13:33] LABS: Absolute Lymphocyte Count 2.44 X10^3/uL (0.83-4.51); Absolute Neutrophil Count 6.6 X10^3/uL (2.0-7.7); Basophil# 0.02 X10^3/uL; Basophil% 0.2 % (0-1); Eosinophil# 0.18 X10^3/uL; Eosinophils% 1.7 % (0-5); Hematocrit 37.2 % (40-54); Hemoglobin 12.5 g/dL (13.0-16.5); Lymphocyte # 2.44 X10^3/ul (0.83-4.51); Lymphocyte % 23.4 % (19-41); Mean Corp Hgb Conc 33.6 g/dL (32-36); Mean Corpuscular Hgb 31.2 pg (27.0-32.0); Mean Corpuscular Volume 92.8 fL (80-94); Mean Platelet Vol. 11.7 fl (6.2-12.0); Monocyte% 11.5 % (0-10); NRBC Flagged by Analyzer 0 % (0-5); Neutrophil # 6.57 X10^3/uL (2.7-7.7); Neutrophil % 62.9 % (47-70); Platelet Count 176 K/mm3 (150-450); RBC Distribution Width CV 16.2 % (11.6-14.6); RBC Distribution Width SD 55.3 fl (35.1-43.9); Red Blood Count 4.01 M/mm3 (4.6-6.2); White Blood Count 10.4 K/mm3 (4.4-11.0)
[2022-10-04 13:37] LABS: Erythrocyte Sedimentation Rate 43 mm/hr (0-20)
--- NOTE | 2022-10-04 14:44 | CT_ITS ---
STUDY: CT SCAN LOWER EXTREMITY RIGHT REASON FOR EXAM: Male, 77 years old. Pain RADIATION DOSAGE (If Supplied By Facility): CTDIvol = ( 15.38 ) mGy, DLP = ( 551.81 ) mGycm. Individualized dose optimization techniques were used for this CT.? TECHNIQUE: Multiple axial tomographic images of the distal femur and proximal tibia were obtained without intravenous contrast administration. Coronal and sagittal reconstruction was obtained as well. COMPARISON: None. FINDINGS: The patient is status post total knee replacement. There is good alignment. Extensive atherosclerotic calcification of the visualized arteries. No evidence of mass lesion. No significant soft tissue swelling is seen. Tiny joint effusion. CT/Extremity Lower without Contra IMPRESSION: Status post total knee replacement. Small joint effusion. Electronically Signed: Shad Macias MD at 15:43 EST ,
[2022-10-04] MEDS: MethylPREDNISolone 125 MG/2 ML Vial 60 MG IV (15:06)
[2022-10-04] MEDS: HYDROcodone Bitartrate/Apap 5/325 Tablet PO (15:19)
--- NOTE | 2022-10-04 16:24 | HP.PCM.HOS_ITS ---
[facility] - General General Date of Admission: 10/04/22 Date of Service: 10/04/22 Chief Complaint: Joint pain/inability to ambulate [facility] Boogie HOLLOWAY, is a 77 M who presented to the emergency department at [facility] on 10/04/2022 with a chief complaint of right knee pain, bilateral foot pain and hand pain. The patient was seen here on 10/02/2022 complaining of spontaneous pain, redness and swelling of the right knee joint. He had noted history of right total knee remotely greater than 20 years ago. Orthopedic surgery came in and aspirated fluid off the joint and it was sent for cultures and the patient was sent home on doxycycline at that time. Cultures did not reveal any signs of infection however he was placed on doxycycline for 2 weeks per orthopedic surgery recommendations. The patient returned to the [facility] today as he has now developed a right hand and bilateral foot pain. There has been no trauma. He has a history of rheumatoid arthritis and receives Remicade every 7 weeks his last treatment was on 27 September. He had been using a cane for ambulation however yesterday he started using a walker because his pain worsened and today could not even walk. He denied any fevers or chills. He states other than the pain he is feeling okay. He follows with Dr. Yen for his rheumatological issues. Vital signs on presentation showed a temperature of 99, heart rate 95, blood pressure is 150/82, respiratory rate 18 and oxygen saturation was anywhere between 88 and 92% on room air. CBC showed a mild anemia at 12.5 but was otherwise unremarkable. An ESR and CRP were performed and found to be 43 and 122 respectively. Both of these are up from his visit on 10/02/2022. His chem istry panel showed mild hypokalemia with a potassium of 3.3 and a chronic stable CKD with a BUN of 26 and a serum creatinine of 186 (baseline serum creatinine is between 1.5 and 1.9). Blood glucose on presentation was elevated at 175. X- rays of the hand and foot and a CT of the right knee were all completed and showed some soft tissue swelling with degenerative changes in the foot, degenerative changes in the hand with no significant soft tissue abnormalities, and the right knee showed a small joint effusion. The case was rediscussed with orthopedic surgery in the emergency department prior to admission and he did recommend the CT to make sure the prosthetic joint in his right knee looked stable. It does. They indicated that they were okay with the initiation of steroids. Unfortunately the fluid removed was not able to be tested for crystals at that time. His uric acid was markedly elevated on the third as well. He was given Solu-Medrol 60 mg IV x1 dose in the emergency department and given his inability to ambulate he will need to be admitted as an observation for ongoing care. [facility] Medical History Abnormal stress test Acute bronchitis with bronchospasm Acute respiratory insufficiency Ambulates with cane Aortic stenosis Arthritis Asthma Asymptomatic hypertensive urgency Atherosclerotic heart disease of cahto coronary artery without angina pectoris Atrial fibrillation with RVR Back pain Bronchitis CAD in cahto artery Cardiology follow-up encounter Chronic anticoagulation Closed head injury Colitis Concussion Covid-19 COVID-19 virus infection CPAP (continuous positive airway pressure) dependence Dementia Diabetes Diabetes Diverticula of colon DM2 (diabetes mellitus, type 2) Essential hypertension Excessive bleeding Former smoker Gastric reflux History of atrial fibrillation History of echocardiogram History of edema History of renal disease History of steroid therapy History of stress test Hyperlipidemia Hypertensive urgency Inflammatory bowel disease Injury of head and neck Intractable pain Kidney stones Loss of consciousness Nonrheumatic aortic (valve) stenosis NSVT (nonsustained ventricular tachycardia) SUPA (obstructive sleep apnea) Paroxysmal atrial fibrillation Pulmonary hypertension Renal colic on left side Rheumatoid aortitis Rheumatoid arthritis Rhinovirus Sepsis Severe acute respiratory syndrome coronavirus 2 (SARS-CoV-2) infection ruled out Severe sepsis Sleep apnea SOB (shortness of breath) Ureterolithiasis Wears dentures Wears glasses Wears hearing aid Home Medications glimepiride 2 mg tablet 2 mg PO QHS diabetes 01/22/18 [History Last Taken 10/03/22] [id number] acid 300 mcg-lycopene 600 mcg-lutein 300 mcg tablet (Centrum Silver Men) 1 ea PO DAILY supplement 09/17/18 [History Last Taken 10/04/22] duloxetine 60 mg capsule,delayed release (Cymbalta) 60 mg PO DAILY depression 06/02/19 [History Last Taken 10/04/22] buspirone 7.5 mg tablet 7.5 mg PO BID depression/anxiety 04/12/21 [History Last Taken 10/04/22] apixaban 5 mg tablet 5 mg PO BID afib #180 tabs 02/23/22 [Rx Last Taken 10/04/22] calcium carbonate 600 mg-vitamin D3 5 mcg (200 unit) tablet 1 tab PO DAILY supplement 12/21/21 [History Last Taken 10/04/22] latanoprost 0.005 % eye drops 1 drp LEFT EYE QPM eye health 12/22/21 [History Last Taken 10/03/22] gabapentin 600 mg tablet 300 mg PO BID neuropathy 01/26/22 [History Last Taken 10/04/22] isosorbide mononitrate 60 mg tablet,extended release 24 hr 60 mg PO BID BLOOD PRESSURE 09/06/22 [History Last Taken 10/04/22] amiodarone 200 mg tablet 100 mg PO DAILY AFIB 10/02/22 [History Last Taken 10/04/22] amlodipine 2.5 mg tablet 2.5 mg PO DAILY BLOOD PRESSURE 10/02/22 [History Last Taken 10/04/22] carvedilol 25 mg tablet 25 mg PO BID HEART 10/02/22 [History Last Taken 10/04/22] cholecalciferol (vitamin D3) 25 mcg (1,000 unit) capsule 25 mcg PO DAILY SUPPLEMENT 10/02/22 [History Last Taken 10/04/22] doxazosin 4 mg tablet 4 mg PO BID BLOOD PRESSURE 10/02/22 [History Last Taken 10/04/22] esomeprazole magnesium 20 mg capsule,delayed release (Nexium) 20 mg PO DAILY GERD 10/02/22 [History Last Taken 10/04/22] loratadine 10 mg tablet 10 mg PO DAILY ALLERGIES 10/02/22 [History Last Taken 10/04/22] losartan 100 mg tablet 100 mg PO DAILY BLOOD PRESSURE 10/02/22 [History Last Taken 10/04/22] doxycycline monohydrate 100 mg capsule 100 mg PO BID ANTIBIOTIC 10/04/22 [History Last Taken 10/04/22] furosemide 20 mg tablet 20 mg PO DAILY fluid 10/04/22 [History Last Taken 10/04/22] hydralazine 100 mg tablet 100 mg PO TID BLOOD PRESSURE 10/04/22 [History Last Taken 10/04/22] hydrochlorothiazide 25 mg tablet 25 mg PO DAILY BLOOD PRESSURE 10/04/22 [History Last Taken 10/04/22] omega-3 fatty acids 1,000 mg capsule 1,000 mg PO BID supplement 10/04/22 [Hi story Last Taken 10/04/22] oxybutynin chloride 10 mg tablet,extended release 24 hr 10 mg PO DAILY bladder 10/04/22 [History Last Taken 10/04/22] potassium chloride 10 mEq tablet,extended release(part/cryst) 10 meq PO DAILY supplement 10/04/22 [History Last Taken 10/04/22] rosuvastatin 20 mg tablet 20 mg PO DAILY cholesterol 10/04/22 [History Last Taken 10/04/22] timolol maleate 0.5 % eye drops 1 drp LEFT EYE DAILY EYE HEALTH 10/04/22 [History Last Taken 10/03/22] Allergy/AdvReac Type Severity Reaction Status Date / Time aspirin Allergy Severe Mouth Verified 10/04/22 11:56 swelling donepezil [From Aricept] AdvReac Severe Swelling Verified 10/04/22 11:56 minoxidil AdvReac Severe swelling Verified 10/04/22 11:56 morphine AdvReac Severe UNABLE TO Verified 10/04/22 11:56 URINATE Family History Mother Heart disease Diabetes Father Heart disease Lung disease Brother Heart disease Lung disease Cancer prostate, pancreatic Sister Diabetes Cancer uterine Surgical History Cervical vertebral fusion History of back surgery History of bilateral knee replacement History of left heart catheterization (LHC) (~12/22/21) History of removal of cyst Hx of colectomy Hx of cystoscopy Hx of surgical procedure Social History Smoking Status: Former smoker how long ago did patient quit smokin, 2ppd second hand exposure: Yes alcohol intake: never substance use type: does not use caffeine: Yes Type: coffee Number of servings: 2 ROS Constitutional Constitutional: Denies anorexia, change in weight, chills, fatigue, fever(s), malaise, night sweats, weakness or other Eyes Eyes: Denies blurry vision, change in eye color, change in vision, discharge from eye(s), double vision, erythema, eye pain, loss of vision or other ENT HEENT: Reports abnormal hearing and hearing loss; Denies dysphagia, ear pain, epistaxis, headache(s), nasal congestion, nasal discharge, post nasal drip, sinus pressure, sore throat or other Cardiovascular Cardiovascular: Denies chest pain, claudication, dyspnea on exertion, edema, lightheadedness, orthopnea, palpitations, paroxysmal nocturnal dyspnea, rapid heart rate, syncope or other Respiratory/Chest Respiratory/Chest: Denies cough, dyspnea, excessive phlegm production, hemoptysis, productive cough, shortness of breath at rest, shortness of breath with exertion, wheezing or other Gastrointestinal Gastrointestinal: Denies abdominal pain, coffee ground emesis, constipation, diarrhea, dyspepsia, hematemesis, hematochezia, loose stools, melena, nausea, vomiting or other Genitourinary Genitourinary: Denies burning urination, difficulty urinating, dysuria, hematuria, nocturia, urinary frequency, urinary hesitancy, urinary incontinence, urinary urgency or other Musculoskeletal Musculoskeletal: Reports arthralgias, joint pain, joint stiffness and joint swelling; Denies back pain, myalgias, neck pain or other Neurologic Neurologic: Reports abnormal gait Psychiatric Psychiatric: Denies anxiety, depression, homicidal ideation, suicidal ideation or other Endocrine Endocrinology: Denies change in body appearance, cold intolerance, excessive sweating, heat intolerance, polydipsia, polyuria or other Hematologic/Lymphatic Hematologic/Lymphatic: Reports easy bleeding and easy bruising; Denies anemia, lymphadenopathy or other Allergic/Immunologic Allergic/Immunologic: Denies rhinitis, hives, eczemia, asthma or other Vital Signs Vital Signs Vital Signs: 10/04/22 11:56 10/04/22 12:28 10/04/22 13:00 Temperature 99 F Temperature Source Temporal Pulse Rate 95 90 Respiratory Rate 18 18 Respiratory Effort Normal Non-Labored Respiratory Pattern Normal Blood Pressure 150/82 H 158/78 H Blood Pressure Mean 104 104 Pulse Ox 92 92 Oxygen Delivery Method Room Air Room Air Oxygen Flow Rate (L/min) 10/04/22 13:01 10/04/22 13:01 10/04/22 15:08 Temperature 99.1 F Temperature Source Oral Pulse Rate 89 Respiratory Rate 16 Respiratory Effort Respiratory Pattern Blood Pressure 142/73 H Blood Pressure Mean 96 Pulse Ox 88 92 94 Oxygen Delivery Method Room Air Nasal Cannula Nasal Cannula Oxygen Flow Rate (L/min) 2 2 Weight Weight: 102.058 kg Body Mass Index (BMI) 35.2 Physical Exam Const alert, oriented x3, no apparent distress and well nourished Constitutional Narrative: Older white male, appears older than stated age, obese, sitting up in bed, at bedside, very pleasant nontoxic General Appearance: cooperative HEENT normocephalic and head/scalp atraumatic; Negative for hearing grossly normal bilaterally HEENT Narrative: Marked hearing loss, oropharynx is dry, dentures in place Eyes PERRL, EOMs intact bilaterally and conjunctivae normal Eyes Narrative: No scleral icterus Neck no lymphadenopathy, supple and no JVD Neck Narrative: Trachea midline, no thyroid enlargement Resp normal respiratory effort, no retractions, no use of accessory muscles and No clear to auscultation bilaterally Resp Narrative: Scattered end expiratory wheeze, diffusely diminished but otherwise clear Auscultation: wheezes; Negative for crackles or rhonchi Cardio regular rate, regular rhythm, S1 normal heart sound, S2 normal heart sound, no murmurs, no rub, no gallops and no clicks GI normal to inspection, nondistended, normoactive bowel sounds, soft to palpation and non-tender Extremity no clubbing, cyanosis or edema Extremity Narrative: Significant tenderness at second third and fourth digits on the right hand and bilateral great toes with erythema noted at both sites as well as increased tiss ue temperature, right knee is tender to touch with decreased ability for active range of motion and pain with passive range of motion less erythema of the knee but still very tender to touch Skin no rashes or lesions noted, no wounds, skin turgor normal, no jaundice, no petechiae and no mottling Skin Narrative: Erythema at above-noted areas Neuro oriented x3, CN's II-XII intact bilaterally, moves all extremities and no focal motor deficits Speech: speech normal Psych affect normal Psych Narrative: Very pleasant, appropriately interactive Results Lab / Micro Data Attestation: I reviewed the patient's lab results. Result Diagrams: 10/04/22 12:50 10/04/22 12:50 Labs: Laboratory Results - last 24 hr 10/04/22 12:50: WBC 10.4, RBC 4.01 L, Hgb 12.5 L, Hct 37.2 L, MCV 92.8, MCH 31.2, MCHC 33.6, RDW Std Deviation 55.3 H, RDW Coeff of Azeem 16.2 H, Plt Count 176, MPV 11.7, Immature Gran % (Auto) 0.300, Neut % (Auto) 62.9, Lymph % (Auto) 23.4, [place] % (Auto) 11.5 H, Eos % (Auto) 1.7, Baso % (Auto) 0.2, Absolute Neuts (auto) 6.6, Absolute Lymphs (auto) 2.44, Nucleated RBC % 0, ESR 43 H 10/04/22 12:50: Sodium 136, Potassium 3.3 L, Chloride 104, Carbon Dioxide 27.0, Anion Gap 5, BUN 26 H, Creatinine 1.86 H, Estim Creat Clear Calc 30.60, Est GFR (MDRD) Af Amer 45 L, Est GFR (MDRD) Non-Af 38 L, BUN/Creatinine Ratio 14.0, Glucose 175 H, Calcium 8.4 L, C-React Prot Ext Range 122.00 H Radiology Impression Foot X-Ray 10/04/22 13:14 IMPRESSION: Degenerative changes at the first metatarsal phalangeal joint. Soft tissue swelling and vascular calcification. Electronically Signed: Shad Macias MD at 14:15 EST , Hand X-Ray 10/04/22 13:14 IMPRESSION: Degenerative joint disease of the hand, as described above. Electronically Signed: Lazarus Weinstein MD at 14:30 EST Reading Location ID and State: [facility] / [place] , Service support , Lower Extremity CT 10/04/22 14:44 IMPRESSION: Status post total knee replacement. Small joint effusion. Electronically Signed: Shad Macias MD at 15:43 EST , Assessment & Plan Assessment/Plan (1) Gout flare: (2) Inability to walk: (3) History of total knee arthroplasty: (4) Hypokalemia: PLAN: Plan Acute flare of gout -We will need to admit the patient secondary to his decreased ability to ambulate -Gout flare at right second third and fourth digits, bilateral hallux, right knee -60 mg IV steroids given in emergency department -Start prednisone 40 mg daily -Patient is both on Lasix and hydrochlorothiazide which could precipitate a gout flare -Discontinue HCTZ and continue Lasix -PT/OT consultation Inability to walk -Secondary to above -Consult PT/OT -Patient had been ambulating prior to admission and worsening symptoms with a cane Hypokalemia -40 mill equivalents p.o. potassium given -Continue home potassium supplementation -Repeat in a.m. DM-2 -Hold home glimepiride -Start aggressive sliding scale insulin -I do anticipate that his blood sugars will be higher than typical with steroid use -Monitor blood sugars before meals and at bedtime CAD/HTN/HPL/PAF -Continue amiodarone 100 mg daily -Continue apixaban 5 mg p.o. twice daily -Continue home amlodipine 2.5 mg -Continue home carvedilol 25 mg p.o. twice daily -Continue home doxazosin 4 mg twice daily -Continue home Lasix -Hold home hydrochlorothiazide and would recommend discontinuation at discharge -Continue home hydralazine 100 mg 3 times daily -Continue home isosorbide mononitrate 60 mg p.o. twice daily -Continue losartan 100 mg daily -Continue home rosuvastatin CKD stage IIIb -Avoid nephrotoxins -Discontinue hydrochlorothiazide -Current serum creatinine is at baseline -Continue to monitor Glaucoma -Continue home eyedrops for left eye SUPA -Continue home CPAP GERD -Continue home PPI Urinary incontinence -Continue home oxybutynin History of tobacco abuse -Encourage continued cessation DVT prophylaxis -Lovenox CODE STATUS -Full code is verified with patient and prior to admission Charges/Coding Visit Charges Inpatient E&M: 49396 Init Hosp L3
[2022-10-04] MEDS: Potassium Chloride Oral Tablet 20 MEQ 40 MEQ PO (22:25)
[2022-10-04] MEDS: Acetaminophen 500 MG Tablet 1000 MG PO (22:56)
[2022-10-04] MEDS: busPIRone 15 MG TABLET 7.5 MG PO (22:56)
[2022-10-04] MEDS: Isosorbide Mononitrate 60 MG Tablet PO (22:56)
[2022-10-04] MEDS: Gabapentin 300 MG Capsule PO (22:56)
[2022-10-04] MEDS: hydrALAZINE 50 MG Tablet 100 MG PO (22:57)
[2022-10-04] MEDS: APIXABAN 5 MG TABLET PO (22:57)
[2022-10-04] MEDS: Carvedilol 25 MG Tablet PO (22:57)
[2022-10-04] MEDS: Doxazosin 4 MG Tablet PO (22:58)
[2022-10-04] MEDS: Doxycycline 100 MG CAPSULE PO (22:58)
[2022-10-04] MEDS: Latanoprost 0.005% 1 Bottle 1 DRP LEFT EYE (22:59)
[2022-10-04 23:06] LABS: Bedside Glucose 344 mg/dL (74-106)
[2022-10-04] MEDS: Atorvastatin Calcium 40 MG Tablet PO (23:09)
[2022-10-04] MEDS: Insulin Lispro 100 UNIT/ML INSULN.PEN SC (23:10)
--- NOTE | 2022-10-04 23:35 | CPS ---
set up pt own cpap water added
[2022-10-05] VITALS (7 sets, daily range): BP systolic 137–170; BP diastolic 77–80; PULSE 79–88; RESP 18–20; TEMP 36.5–37.2; O2SAT 94–97
[2022-10-05 05:29] LABS: Absolute Lymphocyte Count 1.16 X10^3/uL (0.83-4.51); Basophil# 0.01 X10^3/uL; Basophil% 0.1 % (0-1); Hematocrit 36.3 % (40-54); Hemoglobin 12.3 g/dL (13.0-16.5); Lymphocyte # 1.16 X10^3/ul (0.83-4.51); Lymphocyte % 10.8 % (19-41); Mean Corp Hgb Conc 33.9 g/dL (32-36); Mean Corpuscular Hgb 30.9 pg (27.0-32.0); Mean Corpuscular Volume 91.2 fL (80-94); Mean Platelet Vol. 11.2 fl (6.2-12.0); Monocyte% 4.7 % (0-10); NRBC Flagged by Analyzer 0 % (0-5); Platelet Count 192 K/mm3 (150-450); RBC Distribution Width CV 15.7 % (11.6-14.6); RBC Distribution Width SD 53.3 fl (35.1-43.9); Red Blood Count 3.98 M/mm3 (4.6-6.2); White Blood Count 10.7 K/mm3 (4.4-11.0)
[2022-10-05 05:53] LABS: Anion Gap 9 (5-15); BUN 29 mg/dL (7-18); BUN/Creat Ratio 17.5 RATIO (10-20); Calcium,Total 8.4 mg/dL (8.5-10.1); Chloride 104 mmol/L (98-107); Creatinine, Serum 1.66 mg/dL (0.70-1.30); EST Glomerular Filtration Rate 43 mL/min (>60); Est Glom Filt Rate - Afr Amer 52 mL/min (>60); Estimated Creatinine Clearance 34.29 ml/min; Glucose 210 mg/dL (74-106); Magnesium 2.2 mg/dL (1.6-2.6); Phosphorus 1.8 mg/dL (2.5-4.9); Potassium 3.4 mmol/L (3.5-5.1); Sodium Level 138 mmol/L (136-145)
[2022-10-05] MEDS: Insulin Lispro 100 UNIT/ML INSULN.PEN SC ×3 (06:23→16:55)
[2022-10-05] MEDS: Acetaminophen 500 MG Tablet 1000 MG PO ×2 (06:25→15:36)
[2022-10-05] MEDS: hydrALAZINE 50 MG Tablet 100 MG PO ×2 (06:25→15:36)
[2022-10-05 06:50] LABS: Bedside Glucose 215 mg/dL (74-106)
[2022-10-05] MEDS: Calcium Carb/Vitamin D 1 TABLET Tablet PO (07:47)
[2022-10-05] MEDS: predniSONE 20 MG Tablet 40 MG PO (07:47)
[2022-10-05] MEDS: Isosorbide Mononitrate 60 MG Tablet PO (07:48)
[2022-10-05] MEDS: Losartan Potassium 100 MG Tablet PO (07:49)
[2022-10-05] MEDS: amLODIPine 2.5 MG Tablet PO (07:49)
[2022-10-05] MEDS: Doxycycline 100 MG CAPSULE PO (10:41)
[2022-10-05] MEDS: Pantoprazole Sodium 20 MG Tablet PO (10:41)
[2022-10-05] MEDS: Doxazosin 4 MG Tablet PO (10:41)
[2022-10-05] MEDS: Loratadine 10 MG Tablet PO (10:41)
[2022-10-05] MEDS: Carvedilol 25 MG Tablet PO (10:41)
[2022-10-05] MEDS: Tolterodine Tartrate 2 MG CAP.SA PO (10:41)
[2022-10-05] MEDS: DULoxetine Hcl 60 MG Capsule PO (10:41)
[2022-10-05] MEDS: APIXABAN 5 MG TABLET PO (10:42)
[2022-10-05] MEDS: Timolol 0.5% 5ML OPTH.BTL 1 DRP LEFT EYE (10:42)
[2022-10-05] MEDS: Furosemide 20 MG Tablet PO (10:42)
[2022-10-05] MEDS: Gabapentin 300 MG Capsule PO (10:44)
[2022-10-05] MEDS: busPIRone 15 MG TABLET 7.5 MG PO (10:47)
[2022-10-05 12:00] LABS: Bedside Glucose 259 mg/dL (74-106)
--- NOTE | 2022-10-05 12:03 | PN.HOSP_ITS ---
Subjective Subjective Doing well, pain is improving we will see if he can ambulate today Objective Data Objective Data Vital Signs: Vital Signs Temp Pulse Resp BP Pulse Ox O2 Del Method O2 Flow Rate 98.9 F 88 20 H 170/77 H 94 Room Air 2 10/05/22 07:52 10/05/22 07:52 10/05/22 07:52 10/05/22 07:52 10/05/22 07:52 10/05/22 08:00 10/04/22 23:35 Oxygen Flow Rate (L/min) 2 Oxygen Delivery Method Room Air Weight: 216 lb 11.183 oz Body Mass Index (BMI) 33.9 Intake & Output: Intake and Output for Last 24 Hours 10/04/22 10/05/22 10/06/22 03:59 03:59 03:59 Intake Total 400 / 400 250 / 250 Output Total 300 / 300 300 / 300 Balance 100 / 100 -50 / -50 Lab / Micro Data Result Diagrams: 10/05/22 04:44 10/05/22 04:44 Labs: Laboratory Results - last 24 hr 10/04/22 12:50: WBC 10.4, RBC 4.01 L, Hgb 12.5 L, Hct 37.2 L, MCV 92.8, MCH 31.2, MCHC 33.6, RDW Std Deviation 55.3 H, RDW Coeff of Azeem 16.2 H, Plt Count 176, MPV 11.7, Immature Gran % (Auto) 0.300, Neut % (Auto) 62.9, Lymph % (Auto) 23.4, [place] % (Auto) 11.5 H, Eos % (Auto) 1.7, Baso % (Auto) 0.2, Absolute Neuts (auto) 6.6, Absolute Lymphs (auto) 2.44, Nucleated RBC % 0, ESR 43 H 10/04/22 12:50: Sodium 136, Potassium 3.3 L, Chloride 104, Carbon Dioxide 27.0, Anion Gap 5, BUN 26 H, Creatinine 1.86 H, Estim Creat Clear Calc 30.60, Est GFR (MDRD) Af Amer 45 L, Est GFR (MDRD) Non-Af 38 L, BUN/Creatinine Ratio 14.0, Glucose 175 H, Calcium 8.4 L, C-React Prot Ext Range 122.00 H 10/04/22 22:24: POC Glucose 344 H 10/05/22 04:44: WBC 10.7, RBC 3.98 L, Hgb 12.3 L, Hct 36.3 L, MCV 91.2, MCH 30.9, MCHC 33.9, RDW Std Deviation 53.3 H, RDW Coeff of Azeem 15.7 H, Plt Count 192, MPV 11.2, Immature Gran % (Auto) 0.400, Neut % (Auto) 84.0 H, Lymph % (Auto) 10.8 L, [place] % (Auto) 4.7, Eos % (Auto) 0.0, Baso % (Auto) 0.1, Absolute Neuts (auto) 9.0 H, Absolute Lymphs (auto) 1.16, Nucleated RBC % 0 10/05/22 04:44: Sodium 138, Potassium 3.4 L, Chloride 104, Carbon Dioxide 25.0, Anion Gap 9, BUN 29 H, Creatinine 1.66 H, Estim Creat Clear Calc 34.29, Est GFR (MDRD) Af Amer 52 L, Est GFR (MDRD) Non-Af 43 L, BUN/Creatinine Ratio 17.5, Glucose 210 H, Calcium 8.4 L, Phosphorus 1.8 L, Magnesium 2.2 10/05/22 06:22: POC Glucose 215 H 10/05/22 11:41: POC Glucose 259 H Radiography Diagnostic Testing: Radiology Impression Foot X-Ray 10/04/22 13:14 IMPRESSION: Degenerative changes at the first metatarsal phalangeal joint. Soft tissue swelling and vascular calcification. Electronically Signed: Shad Macias MD at 14:15 EST , Hand X-Ray 10/04/22 13:14 IMPRESSION: Degenerative joint disease of the hand, as described above. Electronically Signed: Lazarus Weinstein MD at 14:30 EST , Lower Extremity CT 10/04/22 14:44 IMPRESSION: Status post total knee replacement. Small joint effusion. Electronically Signed: Shad Macias MD at 15:43 EST , Physical Exam Narrative General: Alert, Oriented x3, Cooperative, No apparent distress HEENT: Atraumatic, PERRLA, EOMI, Normocephalic Oral: Moist Mucosa Neck: Supple, No JVD Lungs: Clear to auscultation, Normal air movement, No rhonchi, No wheeze, No rales Cardiovascular: Regular rate, Regular Rhythm, Normal S1, Normal S2, No murmurs Abdomen: Soft, Non Tender, Non-Distended, No Hepato-splenomegaly Extremities: No edema, Capillary Refill Less than 3 Seconds Skin: No rashes, No breakdown Musculoskeletal: Tenderness to the second through fourth digits on the right hand as well as on his bilateral great toes. There is some slight erythema over his great toes. Neurological: Cranial nerves II-XII grossly intact, Motor Exam 5/5 strength th roughout, Sensory exam intact to light touch and pain Psych/Mental Status: Normal Affect, Appropriate Assessment & Plan Assessment/Plan (1) Gout flare: (2) Inability to walk: (3) History of total knee arthroplasty: (4) Hypokalemia: PLAN: Plan 1. Acute gout flare with an inability to walk ? Continue with steroids ? We will continue to hold his hydrochlorothiazide but continue with his Lasix ? Discharge will be dependent on whether or not he can ambulate, PT and OT have been consulted 2. CAD/HTN/HLD/paroxysmal A. fib ? Blood pressures are stable ? Can resume his home blood pressure medications ? Continue with his statin ? Continue with Eliquis 3. DM2/CKD IIIb ? We will hold his home oral medications ? Continue sliding scale insulin ? Accu-Cheks AC at bedtime ? We will make adjustments as necessary ? Renal function is at baseline, will continue to monitor 4. Glaucoma ? Stable ? Continue his eyedrops 5. SUPA ? Stable ? Continue with home CPAP 6. GERD ? Stable ? Continue with PPI DVT: Eliquis Charges/Coding Visit Charges Inpatient E&M: 11663 Subs Hosp L2
--- NOTE | 2022-10-05 15:25 | CASEMGMT ---
OCTAVIO BERMUDEZ in to complete RAO form with patient. OCTAVIO BERMUDEZ explained RAO form to pt, pt voiced understanding and signed form. Copy of RAO form provided to patient and original placed in chart. Pt denied any further questions at this time. Bishnu Conklin RN CM
--- NOTE | 2022-10-05 15:26 | CASEMGMT ---
Noted no therapy recommended.
--- NOTE | 2022-10-05 17:10 | DCINST_ITS ---
Discharge Instructions Diet Discharge Diet: Low fat / Low cholesterol Activity Discharge Activity: Return to Normal Activity Dressing / Incision Call your doctor if you observe: Fever of 101 or Higher, Shortness of breath, Dizziness, Fainting spells, Swelling in the ankles, Chest pain and Increased palpitations (irregular heartbeat) Follow Up Care Test Results: Test results from this visit will be discussed in further detail at your follow- up appointment, if applicable. Discharge Plan Admission Admit Date/Time: 10/04/22 16:11 Attending Provider: Boris Bojorquez Primary Care Provider: Jayme Yang Consulting Providers: Nela Bellamy Instructions Additional Instructions / Restrictions: Hold your hydrochlorothiazide as this can cause gout and follow-up with your PCP next week to monitor your blood pressure and if necessary start a different blood pressure medication. Discharge Orders/Prescriptions Prescriptions: New prednisone 20 mg Tablet 40 mg PO BREAKFAST 7 Days Qty: 14 0RF Continued duloxetine [Cymbalta] 60 mg capsule,delayed release(DR/EC) 60 mg PO DAILY gabapentin 600 mg tablet 300 mg PO BID isosorbide mononitrate 60 mg tablet extended release 24 hr 60 mg PO BID glimepiride 2 MG tablet 2 mg PO QHS Label Comments: Centrum Silver Men 1 EACH tablet 1 ea PO DAILY buspirone 7.5 mg tablet 7.5 mg PO BID calcium carbonate-vitamin D3 600 mg-5 mcg (200 unit) Tablet 1 tab PO DAILY latanoprost 0.005 % Drops 1 drp LEFT EYE QPM carvedilol 25 mg tablet 25 mg PO BID losartan 100 mg tablet 100 mg PO DAILY loratadine 10 mg Tablet 10 mg PO DAILY esomeprazole magnesium [Nexium] 20 mg Capsule,Delayed Release(Dr/Ec) 20 mg PO DAILY cholecalciferol (vitamin D3) 25 mcg (1,000 unit) Capsule 25 mcg PO DAILY amiodarone 200 mg tablet 100 mg PO DAILY amlodipine 2.5 mg tablet 2.5 mg PO DAILY doxazosin 4 mg tablet 4 mg PO BID omega-3 fatty acids 1,000 mg Capsule 1,000 mg PO BID oxybutynin chloride 10 mg tablet extended release 24hr 10 mg PO DAILY furosemide 20 mg tablet 20 mg PO DAILY timolol maleate 0.5 % drops 1 drp LEFT EYE DAILY doxycycline monohydrate 100 mg capsule 100 mg PO BID hydralazine 100 mg tablet 100 mg PO TID rosuvastatin 20 mg tablet 20 mg PO DAILY potassium chloride 10 mEq tablet,ER particles/crystals 10 meq PO DAILY apixaban 5 mg tablet 5 mg PO BID Qty: 180 3RF Discontinued hydrochlorothiazide 25 mg tablet 25 mg PO DAILY Referrals / Follow Up: Jayme Yang MD [Primary Care Provider] - Within 1 Week Disposition Disposition (needs filled in before D/C Order can be placed): Home, Self Care
[2022-10-05 17:16] LABS: Bedside Glucose 185 mg/dL (74-106)
--- NOTE | 2022-10-05 17:17 | PCM.DC.SUM ---
Providers Date of Admission: 10/04/22 Primary Care Physician: Dr. Jayme Yang MD Reason For Visit: GOUT FLARE/INABILITY TO AMBULATE Diagnosis Discharge Diagnosis (1) Gout flare: Status: Acute Code(s): M10.9 - Gout, unspecified (2) Inability to walk: Status: Acute Code(s): R26.2 - Difficulty in walking, not elsewhere classified (3) History of total knee arthroplasty: Status: Acute Code(s): Z96.659 - Presence of unspecified artificial knee joint (4) Hypokalemia: Status: Acute Code(s): E87.6 - Hypokalemia Plan 1. Acute gout flare with an inability to walk ? Continue with steroids ? We will continue to hold his hydrochlorothiazide but continue with his Lasix ? Discharge will be dependent on whether or not he can ambulate, PT and OT have been consulted 2. CAD/HTN/HLD/paroxysmal A. fib ? Blood pressures are stable ? Can resume his home blood pressure medications ? Continue with his statin ? Continue with Eliquis 3. DM2/CKD IIIb ? We will hold his home oral medications ? Continue sliding scale insulin ? Accu-Cheks AC at bedtime ? We will make adjustments as necessary ? Renal function is at baseline, will continue to monitor 4. Glaucoma ? Stable ? Continue his eyedrops 5. SUPA ? Stable ? Continue with home CPAP 6. GERD ? Stable ? Continue with PPI DVT: Eliquis Medications at Discharge Home Medications glimepiride 2 mg tablet 2 mg PO QHS diabetes 01/22/18 yinbtcdb-iee-waueb acid 300 mcg-lycopene 600 mcg-lutein 300 mcg tablet (Centrum Silver Men) 1 ea PO DAILY supplement 09/17/18 duloxetine 60 mg capsule,delayed release (Cymbalta) 60 mg PO DAILY depression 06/02/19 buspirone 7.5 mg tablet 7.5 mg PO BID depression/anxiety 04/12/21 apixaban 5 mg tablet 5 mg PO BID afib #180 tabs 11/22/21 calcium carbonate 600 mg-vitamin D3 5 mcg (200 unit) tablet 1 tab PO DAILY supplement 12/21/21 latanoprost 0.005 % eye drops 1 drp LEFT EYE QPM eye health 12/22/21 gabapentin 600 mg tablet 300 mg PO BID neuropathy 01/26/22 isosorbide mononitrate 60 mg tablet,extended release 24 hr 60 mg PO BID BLOOD PRESSURE 09/06/22 amiodarone 200 mg tablet 100 mg PO DAILY AFIB 10/02/22 amlodipine 2.5 mg tablet 2.5 mg PO DAILY BLOOD PRESSURE 10/02/22 carvedilol 25 mg tablet 25 mg PO BID HEART 10/02/22 cholecalciferol (vitamin D3) 25 mcg (1,000 unit) capsule 25 mcg PO DAILY SUPPLEMENT 10/02/22 doxazosin 4 mg tablet 4 mg PO BID BLOOD PRESSURE 10/02/22 esomeprazole magnesium 20 mg capsule,delayed release (Nexium) 20 mg PO DAILY GERD 10/02/22 loratadine 10 mg tablet 10 mg PO DAILY ALLERGIES 10/02/22 losartan 100 mg tablet 100 mg PO DAILY BLOOD PRESSURE 10/02/22 doxycycline monohydrate 100 mg capsule 100 mg PO BID ANTIBIOTIC 10/04/22 furosemide 20 mg tablet 20 mg PO DAILY fluid 10/04/22 hydralazine 100 mg tablet 100 mg PO TID BLOOD PRESSURE 10/04/22 omega-3 fatty acids 1,000 mg capsule 1,000 mg PO BID supplement 10/04/22 oxybutynin chloride 10 mg tablet,extended release 24 hr 10 mg PO DAILY bladder 10/04/22 potassium chloride 10 mEq tablet,extended release(part/cryst) 10 meq PO DAILY supplement 10/04/22 rosuvastatin 20 mg tablet 20 mg PO DAILY cholesterol 10/04/22 timolol maleate 0.5 % eye drops 1 drp LEFT EYE DAILY EYE HEALTH 10/04/22 prednisone 20 mg tablet 40 mg PO BREAKFAST 7 days #14 tabs 10/05/22 Hospital Course Operations None Procedures None Summary of Care Provided Minutes Spent on Discharge: 38 Hospital Course: Per HPI: MEGAN HOLLOWAY, is a 77 M who presented to the emergency department at [facility] on 10/04/2022 with a chief complaint of right knee pain, bilateral foot pain and hand pain.? The patient was seen here on 10/02/2022 complaining of spontaneous pain, redness and swelling of the right knee joint.? He had noted history of right total knee remotely greater than 20 years ago.? Orthopedic surgery came in and aspirated fluid off the joint and it was sent for cultures and the patient was sent home on doxycycline at that time.? Cultures did not reveal any signs of infection however he was placed on doxycycline for 2 weeks per orthopedic surgery recommendations.? The patient returned to the emergency department today as he has now developed a right hand and bilateral foot pain.? There has been no trauma.? He has a history of rheumatoid arthritis and receives Remicade every 7 weeks his last treatment was on 27 September.? He had been using a cane for ambulation however yesterday he started using a walker because his pain worsened and today could not even walk.? He denied any fevers or chills.? He states other than the pain he is feeling okay.? He follows with Dr. Yen for his rheumatological issues. Vital signs on presentation showed a temperature of 99, heart rate 95, blood pressure is 150/82, respiratory rate 18 and oxygen saturation was anywhere between 88 and 92% on room air.? CBC showed a mild anemia at 12.5 but was otherwise unremarkable.? An ESR and CRP were performed and found to be 43 and 122 respectively.? Both of these are up from his visit on 10/02/2022.? His chemistry panel showed mild hypokalemia with a potassium of 3.3 and a chronic stable CKD with a BUN of 26 and a serum creatinine of 186 (baseline serum creatinine is between 1.5 and 1.9).? Blood glucose on presentation was elevated at 175.? X-rays of the hand and foot and a CT of the right knee were all completed and showed some soft tissue swelling with degenerative changes in the foot, degenerative changes in the hand with no significant soft tissue abnormalities, and the right knee showed a small joint effusion. The case was rediscussed with orthopedic surgery in the emergency department prior to admission and he did recommend the CT to make sure the prosthetic joint in his right knee looked stable.? It does.? They indicated that they were okay with the initiation of steroids.? Unfortunately the fluid removed was not able to be tested for crystals at that time.? His uric acid was markedly elevated on the third as well.? He was given Solu-Medrol 60 mg IV x1 dose in the emergency department and given his inability to ambulate he will need to be admitted as an observation for ongoing care. Hospital Course: 1. Acute gout flare with an inability to walk?77-year-old male presented with effusions a few days prior to admission this was drained by orthopedic surgeon he was started on doxycycline however he presented back with worsening redness over his great toes and his hands and significant pain with ambulation. This was felt to be due to gout flare since the fluid did not show any organisms and could not be tested for crystals, but he does have a history of rheumatoid arthritis. He did have a uric acid test his first presentation to the ER which was markedly elevated. He was started on steroids and today feels much better recommend continuation of steroids for about a week and follow-up with his PCP next week for the possible addition of allopurinol to his medication regimen. I discussed with him the plan for discharge today he expressed understanding Arleen of is going home and would like to go home today. I do recommend that he complete the doxycycline course as well. 2. Coronary artery disease, hypertension, hyperlipidemia, paroxysmal A. fib, type 2 diabetes, CKD 3B, glaucoma, SUPA, GERD are all chronic medical conditions which complicate his care. His home medications were continued where appropriate Weight / BMI Weight Weight: 216 lb 11.183 oz Body Mass Index (BMI) 33.9 ABG / Lab / Microbiology Data Result Diagrams: 10/05/22 04:44 10/05/22 04:44 Laboratory: Laboratory Results - last 24 hr 10/04/22 22:24: POC Glucose 344 H 10/05/22 04:44: WBC 10.7, RBC 3.98 L, Hgb 12.3 L, Hct 36.3 L, MCV 91.2, MCH 30.9, MCHC 33.9, RDW Std Deviation 53.3 H, RDW Coeff of Azeem 15.7 H, Plt Count 192, MPV 11.2, Immature Gran % (Auto) 0.400, Neut % (Auto) 84.0 H, Lymph % (Auto) 10.8 L, [place] % (Auto) 4.7, Eos % (Auto) 0.0, Baso % (Auto) 0.1, Absolute Neuts (auto) 9.0 H, Absolute Lymphs (auto) 1.16, Nucleated RBC % 0 10/05/22 04:44: Sodium 138, Potassium 3.4 L, Chloride 104, Carbon Dioxide 25.0, Anion Gap 9, BUN 29 H, Creatinine 1.66 H, Estim Creat Clear Calc 34.29, Est GFR (MDRD) Af Amer 52 L, Est GFR (MDRD) Non-Af 43 L, BUN/Creatinine Ratio 17.5, Glucose 210 H, Calcium 8.4 L, Phosphorus 1.8 L, Magnesium 2.2 10/05/22 06:22: POC Glucose 215 H 10/05/22 11:41: POC Glucose 259 H 10/05/22 16:54: POC Glucose 185 H D/C Instructions Discharge Diet: Low fat / Low cholesterol Call your doctor if you observe: Fever of 101 or Higher, Shortness of breath, Dizziness, Fainting spells, Swelling in the ankles, Chest pain and Increased palpitations (irregular heartbeat) Meaningful Use Info Meaningful Use Diagnoses (Choose all that apply): None applicable Discharge Plan Admission Admit Date/Time: 10/04/22 16:11 Attending Provider: Boris Bojorquez Primary Care Provider: Jayme Yang Consulting Providers: Nela Bellamy Instructions Additional Instructions / Restrictions: Hold your hydrochlorothiazide as this can cause gout and follow-up with your PCP next week to monitor your blood pressure and if necessary start a different blood pressure medication. Discharge Orders/Prescriptions Prescriptions: New prednisone 20 mg Tablet 40 mg PO BREAKFAST 7 Days Qty: 14 0RF Continued duloxetine [Cymbalta] 60 mg capsule,delayed release(DR/EC) 60 mg PO DAILY gabapentin 600 mg tablet 300 mg PO BID isosorbide mononitrate 60 mg tablet extended release 24 hr 60 mg PO BID glimepiride 2 MG tablet 2 mg PO QHS Label Comments: Centrum Silver Men 1 EACH tablet 1 ea PO DAILY buspirone 7.5 mg tablet 7.5 mg PO BID calcium carbonate-vitamin D3 600 mg-5 mcg (200 unit) Tablet 1 tab PO DAILY latanoprost 0.005 % Drops 1 drp LEFT EYE QPM carvedilol 25 mg tablet 25 mg PO BID losartan 100 mg tablet 100 mg PO DAILY loratadine 10 mg Tablet 10 mg PO DAILY esomeprazole magnesium [Nexium] 20 mg Capsule,Delayed Release(Dr/Ec) 20 mg PO DAILY cholecalciferol (vitamin D3) 25 mcg (1,000 unit) Capsule 25 mcg PO DAILY amiodarone 200 mg tablet 100 mg PO DAILY amlodipine 2.5 mg tablet 2.5 mg PO DAILY doxazosin 4 mg tablet 4 mg PO BID omega-3 fatty acids 1,000 mg Capsule 1,000 mg PO BID oxybutynin chloride 10 mg tablet extended release 24hr 10 mg PO DAILY furosemide 20 mg tablet 20 mg PO DAILY timolol maleate 0.5 % drops 1 drp LEFT EYE DAILY doxycycline monohydrate 100 mg capsule 100 mg PO BID hydralazine 100 mg tablet 100 mg PO TID rosuvastatin 20 mg tablet 20 mg PO DAILY potassium chloride 10 mEq tablet,ER particles/crystals 10 meq PO DAILY apixaban 5 mg tablet 5 mg PO BID Qty: 180 3RF Discontinued hydrochlorothiazide 25 mg tablet 25 mg PO DAILY Referrals / Follow Up: Jayme Yang MD [Primary Care Provider] - Within 1 Week Disposition Disposition (needs filled in before D/C Order can be placed): Home, Self Care Charges/Coding Visit Charges Inpatient E&M: 96439 Disch Hosp >30min
== END 2022-10-05 18:20 | disposition home or self-care (01) ==
LOC: ED 17:17 → MS3 17:32
PROVIDERS: Admitting Provider Internal Medicine; Emergency Provider Emergency Medicine; PCP Family Medicine; Visit Provider Family Medicine
DX: M10.9 Gout, unspecified (principal); E11.22 Type 2 diabetes mellitus with diabetic chronic kidney disease; E11.39 Type 2 diabetes mellitus with other diabetic ophthalmic complication; I48.0 Paroxysmal atrial fibrillation; N18.32 Chronic kidney disease, stage 3b; E87.6 Hypokalemia; H40.9 Unspecified glaucoma; Z86.16 Personal history of COVID-19; G47.33 Obstructive sleep apnea (adult) (pediatric); Z79.01 Long term (current) use of anticoagulants; E78.5 Hyperlipidemia, unspecified; R26.2 Difficulty in walking, not elsewhere classified; Z87.891 Personal history of nicotine dependence; Z79.84 Long term (current) use of oral hypoglycemic drugs; I25.10 Atherosclerotic heart disease of native coronary artery without angina pectoris; I12.9 Hypertensive chronic kidney disease with stage 1 through stage 4 chronic kidney disease, or unspecified chronic kidney disease; M13.872 Other specified arthritis, left ankle and foot; M13.861 Other specified arthritis, right knee
CPT/HCPCS: 36415; 73130; 73630; 73700; 80048; 82962; 83735; 84100; 85025; 85652; 86140; 94762; 96374; 96375; 96415; 97161; 97165; 97802; 99221; 99252; 99284; A4216; G0378; G0463

== ENCOUNTER → 2022-11-08 | Outpatient (CLI) | payer MEDICARE, SELFPAY ==
[2022-11-08 15:22] LABS: Absolute Lymphocyte Count 1.96 X10^3/uL (0.83-4.51); Absolute Neutrophil Count 3.6 X10^3/uL (2.0-7.7); Basophil# 0.02 X10^3/uL; Basophil% 0.3 % (0-1); Eosinophil# 0.11 X10^3/uL; Eosinophils% 1.7 % (0-5); Hematocrit 41.4 % (40-54); Hemoglobin 13.8 g/dL (13.0-16.5); Lymphocyte # 1.96 X10^3/ul (0.83-4.51); Lymphocyte % 30.4 % (19-41); Mean Corp Hgb Conc 33.3 g/dL (32-36); Mean Corpuscular Hgb 31.2 pg (27.0-32.0); Mean Corpuscular Volume 93.5 fL (80-94); Mean Platelet Vol. 11.5 fl (6.2-12.0); Monocyte# 0.76 X10^3/uL; Monocyte% 11.8 % (0-10); NRBC Flagged by Analyzer 0.3 % (0-5); Neutrophil # 3.58 X10^3/uL (2.7-7.7); Neutrophil % 55.5 % (47-70); Platelet Count 129 K/mm3 (150-450); RBC Distribution Width CV 16.8 % (11.6-14.6); RBC Distribution Width SD 57.5 fl (35.1-43.9); Red Blood Count 4.43 M/mm3 (4.6-6.2); White Blood Count 6.5 K/mm3 (4.4-11.0)
[2022-11-08 15:38] LABS: ALB/GLOB Ratio 0.9 RATIO (0.9-2.4); AST(SGOT) 23 U/L (15-37); Alanine Aminotransfer ALT/SGPT 52 U/L (16-61); Albumin, Serum 3.4 g/dL (3.2-5.0); Alkaline Phosphatase 53 U/L (45-117); Anion Gap 9 (5-15); BUN 24 mg/dL (7-18); BUN/Creat Ratio 17.8 RATIO (10-20); Chloride 108 mmol/L (98-107); Creatinine, Serum 1.35 mg/dL (0.70-1.30); EST Glomerular Filtration Rate 54 mL/min (>60); Est Glom Filt Rate - Afr Amer 66 mL/min (>60); Globulin 3.8 g/dL (2.2-4.2); Glucose 169 mg/dL (74-106); Potassium 3.8 mmol/L (3.5-5.1); Protein, Total 7.2 g/dL (6.4-8.2); Sodium Level 142 mmol/L (136-145); Uric Acid 5.1 mg/dL (3.5-7.2)
== END | disposition home or self-care (01) ==
LOC: MTLAB 11:29
PROVIDERS: PCP Family Medicine; Referring Provider Internal Medicine Rheumatology; Visit Provider Internal Medicine Rheumatology
DX: M06.09 Rheumatoid arthritis without rheumatoid factor, multiple sites (principal); I27.20 Pulmonary hypertension, unspecified; K51.80 Other ulcerative colitis without complications; E11.22 Type 2 diabetes mellitus with diabetic chronic kidney disease; I48.0 Paroxysmal atrial fibrillation; M15.9 Polyosteoarthritis, unspecified; K21.00 Gastro-esophageal reflux disease with esophagitis, without bleeding; M47.897 Other spondylosis, lumbosacral region; M51.37 Other intervertebral disc degeneration, lumbosacral region; I12.9 Hypertensive chronic kidney disease with stage 1 through stage 4 chronic kidney disease, or unspecified chronic kidney disease; N18.9 Chronic kidney disease, unspecified; E78.5 Hyperlipidemia, unspecified; G47.33 Obstructive sleep apnea (adult) (pediatric); K57.90 Diverticulosis of intestine, part unspecified, without perforation or abscess without bleeding; Z79.899 Other long term (current) drug therapy; Z87.442 Personal history of urinary calculi
CPT/HCPCS: 36415; 80053; 84550; 85025

== ENCOUNTER → 2022-11-09 | Outpatient (CLI) | payer MEDICARE, SELFPAY ==
[2022-11-13 10:09] LABS: QNTFERON TB Mitogen Value > 10.00 IU/mL (.); QNTFERON TB Nil Value 0.16 IU/mL (.); QNTFERON TB1+ Ag Value 0.13 IU/mL (.); QNTFERON TB2+ Ag Value 0.13 IU/mL (.)
[2022-11-13 18:32] LABS: QNTIFERON TB Positive Criteria Negative (Negative)
== END | disposition home or self-care (01) ==
LOC: MTLAB 10:20
PROVIDERS: PCP Family Medicine; Referring Provider Internal Medicine Rheumatology; Visit Provider Internal Medicine Rheumatology
DX: M06.09 Rheumatoid arthritis without rheumatoid factor, multiple sites (principal); Z79.899 Other long term (current) drug therapy
CPT/HCPCS: 36415; 86480

== ENCOUNTER → 2022-12-20 | Outpatient (CLI) | payer MEDICARE, SELFPAY ==
--- NOTE | 2022-10-02 17:04 | CON.PCM.OR_ITS ---
HPI Consult Data Date of Consult: 10/02/22 PCP / Referring MD: Milton Mckinley ER physician HPI Narrative Reason for Consultation: Right knee pain HPI Narrative: MEGAN HOLLOWAY, is a 77 M multiple medical comorbidities including atrial fibrillation and dementia who presents with right knee pain. Patient is 22 years status post right total knee replacement with Dr. Hess. Patient reports 2 to 3 days of intense pain over the anterior knee. He reports the pain is over the anterior proximal tibia. ER physician noted erythema however erythema was largely diminished upon my examination. Patient denies any recent illnesses. His is at bedside and also denies any recent illnesses. He has not had any recent dental work as reported by both parties. He has had increasing difficulty the with range of motion and weightbearing. He notes burning over the anterior portion of the patella tendon. There is no large bursal area here. He has not had previous history of gout however uric acid was elevated on serum exam today. Patient is on Eliquis for his atrial fibrillation last dose was taken this morning. He has not had any antibiotics yet. I was consulted for aspiration based on concerns for infection. Currently denies fevers chills or night sweats. No history of trauma [facility] Medical History Abnormal stress test Acute bronchitis with bronchospasm Acute respiratory insufficiency Ambulates with cane Aortic stenosis Arthritis Asthma Asymptomatic hypertensive urgency Atherosclerotic heart disease of [place] coronary artery without angina pectoris Atrial fibrillation with RVR Back pain Bronchitis CAD in [place] artery Cardiology follow-up encounter Chronic anticoagulation Closed head injury Colitis Concussion Covid-19 COVID-19 virus infection CPAP (continuous positive airway pressure) dependence Dementia Diabetes Diabetes Diverticula of colon DM2 (diabetes mellitus, type 2) Essential hypertension Excessive bleeding Former smoker Gastric reflux History of atrial fibrillation History of echocardiogram History of edema History of renal disease History of steroid therapy History of stress test Hyperlipidemia Hypertensive urgency Inflammatory bowel disease Injury of head and neck Intractable pain Kidney stones Loss of consciousness Nonrheumatic aortic (valve) stenosis NSVT (nonsustained ventricular tachycardia) SUPA (obstructive sleep apnea) Paroxysmal atrial fibrillation Pulmonary hypertension Renal colic on left side Rheumatoid aortitis Rheumatoid arthritis Rhinovirus Sepsis Severe acute respiratory syndrome coronavirus 2 (SARS-CoV-2) infection ruled out Severe sepsis Sleep apnea SOB (shortness of breath) Ureterolithiasis Wears dentures Wears glasses Wears hearing aid Home Medications glimepiride 2 mg tablet 2 mg PO DAILY diabetes 01/22/18 [History Last Taken 10/01/22] vggmyyir-iqt-xqwdn acid 300 mcg-lycopene 600 mcg-lutein 300 mcg tablet 1 ea PO DAILY supplement 09/17/18 [History Last Taken 10/01/22] duloxetine 60 mg capsule,delayed release (Cymbalta) 60 mg PO DAILY depression 06/02/19 [History Last Taken 10/02/22] buspirone 7.5 mg tablet 7.5 mg PO BID mental health 04/12/21 [History Last Taken 10/02/22] albuterol sulfate 90 mcg/actuation aerosol inhaler 2 puff inhalation Q6H PRN SOB 08/09/21 [History Last Taken Unknown] rosuvastatin 20 mg tablet 20 mg PO DAILY #90 tabs 11/21/21 [Rx Last Taken 10/01/22] apixaban 5 mg tablet 5 mg PO BID afib #180 tabs 11/22/21 [Rx Last Taken 12/20] potassium chloride 10 mEq tablet,extended release(part/cryst) 10 meq PO DAILY #90 tabs 11/22/21 [Rx Last Taken 10/01/22] omega-3 fatty acids 1,000 mg PO BID 12/13/21 [History Last Taken 10/02/22] calcium carbonate 600 mg-vitamin D3 5 mcg (200 unit) tablet 1 tab PO DAILY supplement 12/21/21 [History Last Taken 10/01/22] latanoprost 0.005 % eye drops 1 drp LEFT EYE QPM eye health 12/22/21 [History Last Taken 10/01/22] timolol 0.25 % eye drops 1 drp LEFT EYE DAILY 12/22/21 [History Last Taken 10/02/22] gabapentin 600 mg tablet 300 mg PO BID neuropathy 01/26/22 [History Last Taken 10/02/22] ipratropium bromide 21 mcg (0.03 %) nasal spray 2 spray intranasal TID PRN ALLERGIES 01/26/22 [History Last Taken Unknown] hydralazine 100 mg tablet 100 mg PO TID BP #90 tabs 05/23/22 [Rx Last Taken 0 10/02/22] hydrochlorothiazide 25 mg tablet 25 mg PO DAILY #30 tabs 07/04/22 [Rx Last Taken 10/02/22] isosorbide mononitrate 60 mg tablet,extended release 24 hr 60 mg PO BID 09/06/22 [History Last Taken 10/02/22] amiodarone 200 mg tablet 100 mg PO DAILY HEART 10/02/22 [History Last Taken 10/02/22] amlodipine 2.5 mg tablet 2.5 mg PO DAILY BP 10/02/22 [History Last Taken 10/02/22] carvedilol 25 mg tablet 25 mg PO BID HEART 10/02/22 [History Last Taken 10/02/22] cholecalciferol (vitamin D3) 25 mcg (1,000 unit) capsule 25 mcg PO DAILY SUPPLEMENT 10/02/22 [History Last Taken 10/01/22] doxazosin 4 mg tablet 4 mg PO BID HEART 10/02/22 [History Last Taken 10/02/22] esomeprazole magnesium 20 mg capsule,delayed release (Nexium) 20 mg PO DAILY GERD 10/02/22 [History Last Taken 10/02/22] loratadine 10 mg tablet 10 mg PO DAILY ALLERGIES 10/02/22 [History Last Taken 10/01/22] losartan 100 mg tablet 100 mg PO DAILY BP 10/02/22 [History Last Taken 10/02/22] Allergy/AdvReac Type Severity Reaction Status Date / Time aspirin Allergy Severe Mouth Verified 10/02/22 10:26 swelling donepezil [From Aricept] AdvReac Severe Swelling Verified 10/02/22 10:26 minoxidil AdvReac Severe swelling Verified 10/02/22 10:26 morphine AdvReac Severe UNABLE TO Verified 10/02/22 10:26 URINATE Family History Mother Heart disease Diabetes Father Heart disease Lung disease Brother Heart disease Lung disease Cancer prostate, pancreatic Sister Diabetes Cancer uterine Surgical History Cervical vertebral fusion History of back surgery History of bilateral knee replacement History of left heart catheterization (LHC) (~12/22/21) History of removal of cyst Hx of colectomy Hx of cystoscopy Hx of surgical procedure Social History Smoking Status: Former smoker how long ago did patient quit smokin, 2ppd second hand exposure: Yes alcohol intake: never substance use type: does not use caffeine: Yes Type: coffee Number of servings: 2 ROS Constitutional Constitutional: Reports systems reviewed and no addt'l complaints, except as documented Eyes Eyes: Reports systems reviewed and no addt'l complaints, except as documented ENT HEENT: Reports systems reviewed and no addt'l complaints, except as documented Cardiovascular Cardiovascular: Reports systems reviewed and no addt'l complaints, except as documented Respiratory/Chest Respiratory/Chest: Reports systems reviewed and no addt'l complaints, except as documented Gastrointestinal Gastrointestinal: Reports systems reviewed and no addt'l complaints, except as documented Genitourinary Genitourinary: Reports systems reviewed and no addt'l complaints, except as documented Musculoskeletal Musculoskeletal: Reports systems reviewed and no addt'l complaints, except as documented Integumentary Integumentary: Reports systems reviewed and no addt'l complaints, except as documented Neurologic Neurologic: Reports systems reviewed and no addt'l complaints, except as documented Psychiatric Psychiatric: Reports systems reviewed and no addt'l complaints, except as documented Vital Signs Vital Signs Vital Signs: See department vital signs reviewed. Physical Exam Const alert and oriented x3 HEENT normocephalic Eyes PERRL Neck no JVD Resp normal respiratory effort Cardio Cardio Narrative: Palpable pulses in distal extremity GI non-distended Extremity Extremity Narrative: Right lower extremity: Minimal erythema. Pain with active range of motion. Tenderness palpation over the patella tendon. No large area of anterior fluctuance. Mild swelling anteriorly. Moderate palpable effusion. Increased warmth around the knee. Neurovascular intact distally Skin no wounds Neuro CN's II-XII intact bilaterally Psych affect normal Medical Records Data Attestation: I reviewed the patient's medical records Medical records narrative: Right knee x-ray shows stable well aligned right total knee replacement. Implants appear to be well fixed. Patella tracks well. Overall alignment is good. Patient does have a small amount of visible osteolysis around the lateral screw of the press-fit implant. Lab / Micro Data Attestation: I reviewed the patient's lab results. Lab results narrative: CBC was reviewed. ESR 28, CRP 26 Labs: Aspiration results pending Assessment & Plan Assessment/Plan (1) History of total knee arthroplasty: PLAN: See next problem (2) Effusion, right knee: PLAN: Patient is 22 years status post right total knee replacement with previous provider my practice. He presents today with 2 to 3 days of increasing right knee pain. No previous infections. No recent dental work. He does have si gnificant medical comorbidities which and advanced age which could compromise his immune system. Based on his elevated CRP I did recommend an aspiration today. See procedure note below. We were able to aspirate 2 cc of healthy appearing synovial fluid. These were sent for culture, gram stain, crystals as well as cell count. Patient also has pain in the anterior prepatellar area may have findings consistent with prepatellar bursitis at this time it appears to be aseptic in nature. I explained to the patient that based on my radiographic review the knee replacement appears to be in good alignment with well fixed implants however early loosening may be difficult to detect as well as the full severity of osteolysis can be difficult to fully appreciate on plain films. I recommended we proceed with the aspiration order to rule out infection. If we can rule out infection would likely proceed with further work-up in an outpatient setting if he can tolerate the weightbearing restrictions. After the aspiration patient was given IV antibiotics for potential for infectious etiology. We will also consider IV steroids if infection is ruled out with the fluid. If patient has suspicious fluid we may also consider irrigation debridement which will require 48 hours of discontinuation of his Eliquis. Once the aspiration results have returned we will determine final disposition from [facility] emergency department. I have notified the emergency room physician of the current treatment plan and all parties are in agreement. Procedure: Right knee aspiration. Sterile technique was used including sterile gloves. Once the lateral suprapatellar portal was palpated and marked the area was cleaned with Betadine followed by chlorhexidine. 18-gauge needle was placed on a sterile 20 cc syringe. Using sterile gloves we again palpated the area and did 1 final cleaning with alcohol. The 18-gauge needle was introduced into the knee we were able to obtain 2 cc of straw-colored healthy appearing fluid. The majority the fluid was placed in purple top tube the remainder was placed in a red top tube for cultures. Fluid was sent to the lab for stat report. [facility] Office:
[2022-12-20 10:14] LABS: Protein:Creat Ratio 357 mg/g CRE (0-200)
[2022-12-20 10:24] LABS: Albumin, Serum 3.3 g/dL (3.2-5.0); BUN 19 mg/dL (7-18); BUN/Creat Ratio 13.1 RATIO (10-20); Calcium,Total 8.4 mg/dL (8.5-10.1); Chloride 109 mmol/L (98-107); Creatinine, Serum 1.45 mg/dL (0.70-1.30); EST Glomerular Filtration Rate 50 mL/min (>60); Est Glom Filt Rate - Afr Amer 61 mL/min (>60); Glucose 196 mg/dL (74-106); Phosphorus 2.2 mg/dL (2.5-4.9); Potassium 3.7 mmol/L (3.5-5.1); Sodium Level 145 mmol/L (136-145)
== END | disposition home or self-care (01) ==
LOC: MTLAB 08:48
PROVIDERS: PCP Family Medicine; Referring Provider Internal Medicine Nephrology; Visit Provider Internal Medicine Nephrology
DX: E11.22 Type 2 diabetes mellitus with diabetic chronic kidney disease (principal); N18.32 Chronic kidney disease, stage 3b
CPT/HCPCS: 36415; 80069; 82570; 84156

== ENCOUNTER → 2023-01-03 | Outpatient (CLI) | payer MEDICARE, SELFPAY ==
[2023-01-03 09:44] LABS: Absolute Lymphocyte Count 2.62 X10^3/uL (0.83-4.51); Absolute Neutrophil Count 2.9 X10^3/uL (2.0-7.7); Basophil# 0.04 X10^3/uL; Basophil% 0.6 % (0-1); Eosinophil# 0.27 X10^3/uL; Eosinophils% 4.2 % (0-5); Hematocrit 38.5 % (40-54); Hemoglobin 12.9 g/dL (13.0-16.5); Lymphocyte # 2.62 X10^3/ul (0.83-4.51); Lymphocyte % 40.5 % (19-41); Mean Corp Hgb Conc 33.5 g/dL (32-36); Mean Corpuscular Hgb 31.9 pg (27.0-32.0); Mean Corpuscular Volume 95.3 fL (80-94); Mean Platelet Vol. 10.9 fl (6.2-12.0); Monocyte# 0.63 X10^3/uL; Monocyte% 9.7 % (0-10); NRBC Flagged by Analyzer 0 % (0-5); Neutrophil # 2.89 X10^3/uL (2.7-7.7); Neutrophil % 44.7 % (47-70); Platelet Count 174 K/mm3 (150-450); RBC Distribution Width CV 15.9 % (11.6-14.6); Red Blood Count 4.04 M/mm3 (4.6-6.2); White Blood Count 6.5 K/mm3 (4.4-11.0)
[2023-01-03 10:11] LABS: AST(SGOT) 32 U/L (15-37); Alanine Aminotransfer ALT/SGPT 39 U/L (16-61); Albumin, Serum 3.5 g/dL (3.2-5.0); Alkaline Phosphatase 52 U/L (45-117); Anion Gap 7 (5-15); BUN 20 mg/dL (7-18); BUN/Creat Ratio 12.6 RATIO (10-20); Calcium,Total 8.8 mg/dL (8.5-10.1); Chloride 109 mmol/L (98-107); Creatinine, Serum 1.59 mg/dL (0.70-1.30); EST Glomerular Filtration Rate 45 mL/min (>60); Est Glom Filt Rate - Afr Amer 54 mL/min (>60); Globulin 3.5 g/dL (2.2-4.2); Glucose 138 mg/dL (74-106); Potassium 3.6 mmol/L (3.5-5.1); Sodium Level 142 mmol/L (136-145); Uric Acid 7.8 mg/dL (3.5-7.2)
== END | disposition home or self-care (01) ==
LOC: MTLAB 08:29
PROVIDERS: PCP Family Medicine; Referring Provider Internal Medicine Rheumatology; Visit Provider Internal Medicine Rheumatology
DX: M06.09 Rheumatoid arthritis without rheumatoid factor, multiple sites (principal); Z79.899 Other long term (current) drug therapy
CPT/HCPCS: 36415; 80053; 84550; 85025

== ENCOUNTER → 2023-02-28 | Outpatient (CLI) | payer MEDICARE, SELFPAY ==
--- NOTE | 2023-02-28 11:42 | RAD_ITS ---
INDICATION: PAIN EXAMINATION/TECHNIQUE: X-RAY - LEFT XR Wrist Min 3 Views 3 VIEWS COMPARISON: 01/22/2018 FINDINGS: SOFT TISSUES: No soft tissue swelling or gas. Persistent small metallic density foreign body dorsolateral to the distal radius. Increasing soft tissue calcification about the carpals. BONES/JOINTS: No acute fracture or subluxation.. Joint spaces anatomically aligned with mild degenerative osteophytes. No sclerotic or destructive changes observed. RAD/Wrist min 3 Views IMPRESSION: Degenerative changes without acute bony abnormality. Electronically Signed: Joel Cleveland MD at 22:23 EDT ,
--- NOTE | 2023-02-28 11:42 | RAD_ITS ---
INDICATION: PAIN EXAMINATION/TECHNIQUE: X-RAY - LEFT XR Elbow Min 3 Views 5 VIEWS COMPARISON: None. FINDINGS: SOFT TISSUES: No soft tissue swelling or gas. No radiopaque foreign body. BONES/JOINTS: No acute fracture or subluxation. Joint spaces anatomically aligned with minimal degenerative osteophytes. No sclerotic or destructive changes observed. RAD/Elbow min 3 Views IMPRESSION: Mild degenerative changes. Electronically Signed: Joel Cleveland MD at 22:16 EDT ,
== END | disposition home or self-care (01) ==
LOC: MTRAD 11:42
PROVIDERS: PCP Family Medicine; Referring Provider Family Medicine; Visit Provider Family Medicine
DX: M79.602 Pain in left arm (principal)
CPT/HCPCS: 73080; 73110

== ENCOUNTER 2023-03-21 17:02 | Inpatient (IN) | payer MEDICARE, SELFPAY ==
[2023-03-21 17:03] VITALS: BP 184/99; PULSE 95; RESP 24; TEMP 36.8; O2SAT 96; BMI 33.2
--- NOTE | 2023-03-21 17:35 | RAD_ITS ---
STUDY: X-RAY CHEST REASON FOR EXAM: Male, 77 years old. sob TECHNIQUE: Single frontal view of the chest. COMPARISON: 09/06/2022. FINDINGS: The lungs are clear and expanded. Small scar across the base of the left lung. There is no demonstrated pleural abnormality. Normal size heart. Normal mediastinum and corina. Normal visualized pulmonary arteries. Normal visualized aortic arch and descending thoracic aorta. Normal visualized thoracic spine. Normal visualized ribs, clavicles, and shoulders. There is no demonstrated abnormality of the visualized soft tissue structures of the upper abdomen. RAD/Chest 1 View (Portable) IMPRESSION: No definite acute or significant abnormality seen. Electronically Signed: Ynog Em MD at 17:49 EDT ,
--- NOTE | 2023-03-21 17:38 | ED.VIS.DYS ---
HPI History of Present Illness Chief Complaint: Shortness of Breath [facility] Medical History Abnormal stress test Acute bronchitis with bronchospasm Acute respiratory insufficiency Ambulates with cane Aortic stenosis Arthritis Asthma Asymptomatic hypertensive urgency Atherosclerotic heart disease of [place] coronary artery without angina pectoris Atrial fibrillation with RVR Back pain Bronchitis CAD in [place] artery Cardiology follow-up encounter Chronic anticoagulation Closed head injury Colitis Concussion Covid-19 COVID-19 virus infection CPAP (continuous positive airway pressure) dependence Dementia Diabetes Diabetes Diverticula of colon DM2 (diabetes mellitus, type 2) Essential hypertension Excessive bleeding Former smoker Gastric reflux History of atrial fibrillation History of echocardiogram History of edema History of renal disease History of steroid therapy History of stress test Hyperlipidemia Hypertensive urgency Inflammatory bowel disease Injury of head and neck Intractable pain Kidney stones Loss of consciousness Nonrheumatic aortic (valve) stenosis NSVT (nonsustained ventricular tachycardia) SUPA (obstructive sleep apnea) Paroxysmal atrial fibrillation Pulmonary hypertension Renal colic on left side Rheumatoid aortitis Rheumatoid arthritis Rhinovirus Sepsis Severe acute respiratory syndrome coronavirus 2 (SARS-CoV-2) infection ruled out Severe sepsis Sleep apnea SOB (shortness of breath) Ureterolithiasis Wears dentures Wears glasses Wears hearing aid Home Medications glimepiride 2 mg tablet 2 mg PO QHS diabetes 01/22/18 [History Last Taken 03/21/23] bhzhpnlg-eth-umjpi acid 300 mcg-lycopene 600 mcg-lutein 300 mcg tablet (Centrum Silver Men) 1 ea PO DAILY supplement 09/17/18 [History Last Taken 03/21/23] duloxetine 60 mg capsule,delayed release (Cymbalta) 60 mg PO DAILY depression 06/02/19 [History Last Taken 03/21/23] buspirone 7.5 mg tablet 7.5 mg PO BID depression/anxiety 04/12/21 [History Last Taken 03/21/23] calcium carbonate 600 mg-vitamin D3 5 mcg (200 unit) tablet 1 tab PO DAILY supplement 12/21/21 [History Last Taken 03/21/23] latanoprost 0.005 % eye drops 1 drp LEFT EYE QPM eye health 12/22/21 [History Last Taken 03/20/23] gabapentin 600 mg tablet 300 mg PO BID neuropathy 01/26/22 [History Last Taken 03/21/23] isosorbide mononitrate 60 mg tablet,extended release 24 hr 60 mg PO BID BLOOD PRESSURE 09/06/22 [History Last Taken 10/04/22] amiodarone 200 mg tablet 100 mg PO DAILY AFIB 10/02/22 [History Last Taken 03/21/23] carvedilol 25 mg tablet 25 mg PO BID HEART 10/02/22 [History Last Taken 03/21/23] cholecalciferol (vitamin D3) 25 mcg (1,000 unit) capsule 25 mcg PO DAILY SUPPLEMENT 10/02/22 [History Last Taken 10/04/22] doxazosin 4 mg tablet 4 mg PO BID BLOOD PRESSURE 10/02/22 [History Last Taken 03/21/23] esomeprazole magnesium 20 mg capsule,delayed release (Nexium) 20 mg PO DAILY GERD 10/02/22 [History Last Taken 03/21/23] loratadine 10 mg tablet 10 mg PO DAILY ALLERGIES 10/02/22 [History Last Taken 03/21/23] losartan 100 mg tablet 100 mg PO DAILY BLOOD PRESSURE 10/02/22 [History Last Taken 03/21/23] hydralazine 100 mg tablet 100 mg PO TID BLOOD PRESSURE 10/04/22 [History Last Taken 03/21/23] omega-3 fatty acids 1,000 mg capsule 1,000 mg PO BID supplement 10/04/22 [History Last Taken 10/04/22] oxybutynin chloride 10 mg tablet,extended release 24 hr 10 mg PO QODAY bladder 10/04/22 [History Last Taken 03/21/23] timolol maleate 0.5 % eye drops 1 drp LEFT EYE DAILY EYE HEALTH 10/04/22 [History Last Taken 03/20/23] furosemide 20 mg tablet 20 mg PO DAILY PRN fluid 10/22/22 [History Last Taken Unknown] prednisone 20 mg tablet 40 mg PO BREAKFAST Check with primary doctor 10/22/22 [History Last Taken 03/21/23] potassium chloride 10 mEq tablet,extended release(part/cryst) 10 meq PO DAILY PRN supplement #90 tabs 11/26/22 [Rx Last Taken Unknown] apixaban 5 mg tablet 5 mg PO BID afib #180 tabs 12/03/22 [Rx Last Taken 03/21/23] amlodipine 2.5 mg tablet 2.5 mg PO DAILY BLOOD PRESSURE #90 tabs 12/06/22 [Rx Last Taken 03/21/23] infliximab 100 mg intravenous solution (Remicade) 100 mg IV Q7D crohns 03/21/23 [History Last Taken Unknown] rosuvastatin 20 mg tablet 20 mg PO DAILY cholesterol 03/21/23 [History Last Taken 03/21/23] tramadol 50 mg tablet 50 mg PO TID PRN PRN Pain 03/21/23 [History Last Taken Unknown] omega-3 fatty acids-vitamin E 1,000 mg capsule cap PO Check with primary doctor 03/22/23 [History Last Taken 03/21/23] Allergy/AdvReac Type Severity Reaction Status Date / Time aspirin Allergy Severe Mouth Verified 03/21/23 17:02 swelling donepezil [From Aricept] AdvReac Severe Swelling Verified 03/21/23 17:02 minoxidil AdvReac Severe swelling Verified 03/21/23 17:02 morphine AdvReac Severe UNABLE TO Verified 03/21/23 17:02 URINATE Family History Mother Heart disease Diabetes Father Heart disease Lung disease Brother Heart disease Lung disease Cancer prostate, pancreatic Sister Diabetes Cancer uterine Surgical History Cervical vertebral fusion History of back surgery History of bilateral knee replacement History of left heart catheterization (LHC) (~12/22/21) History of removal of cyst Hx of colectomy Hx of cystoscopy Hx of surgical procedure Social History Smoking Status: Former smoker how long ago did patient quit smokin, 2ppd second hand exposure: Yes alcohol intake: never substance use type: does not use caffeine: Yes Type: coffee Number of servings: 2 EXAM Physical Exam Const Vital Signs: 03/21/23 17:03 03/21/23 17:43 03/21/23 17:43 Temperature 98.3 F Temperature Source Temporal Pulse Rate 95 Respiratory Rate 24 H 20 H Respiratory Depth Respiratory Pattern Blood Pressure 184/99 H Blood Pressure Mean 127 Pulse Ox 96 94 94 Oxygen Delivery Method Room Air Room Air Room Air 03/21/23 17:43 03/21/23 19:31 Temperature Temperature Source Pulse Rate 71 Respiratory Rate 23 H Respiratory Depth Normal Respiratory Pattern Tachypnea Blood Pressure 182/100 H Blood Pressure Mean 127 Pulse Ox 92 Oxygen Delivery Method Room Air Room Air [facility] Narrative Medical decision making narrative: HISTORY OF PRESENT ILLNESS: 77-year-old male here for shortness of breath. Notes this is been going on for 1 month. Notes he has been treated with steroids antibiotics without improvement by his primary doctor Dr. Samano. He further states he has been coughing and short of breath with exertion. Denies lower extremity edema. The patient denies recent surgery in the last 4 weeks or immobilization in the last 3 days, denies previous diagnosis of DVT or PE, hemoptysis, unilateral leg swelling or malignancy with treatment the last 6 months. No estrogen use noted. REVIEW OF SYSTEMS: Pertinent positives: Shortness of breath, cough Pertinent negatives: Syncope, chest pain PHYSICAL EXAM: Nursing triage notes reviewed, Vital signs reviewed Constitutional: please see mdm HENT: MMM Eyes: Pupils equal round and reactive to light, Extraocular muscles intact Neck: No stridor, no JVD, full neck ROM Lungs: Increased work of breathing, conversational dyspnea, audible rales, focal asymmetry on lung exam with right lower lobe consolidation noted Heart: Regular rate and rhythm, No murmurs, No rubs and No gallops, 2+ distal pulses (radial, femoral, posterior tibial) in all extremities Abdomen: Soft, there is no tenderness, rigidity, rebound or guarding, no obvious peritoneal signs, no palpable pulsatile abdominal masses, no auscultated abdominal bruit : No CVAT Extremities: No edema Neuro: No focal neurological deficits, cranial nerves II through XII intact, 5/5 strength in all extremities. Intact sensation to light touch in all extremities, 2+ reflexes bilateral patella tendons. Normal gait. No ataxia. Skin: No rash or lesions noted MEDICAL DECISION MAKING: Chief Complaint: Shortness of breath External records reviewed: Last echocardiogram 2021 shows ejection fraction 65% Factors affecting care: Hypertension, hyperlipidemia, pulmonary hypertension, asthma, CAD, SUPA, A-fib on Eliquis, rheumatoid arthritis, Social determinants of health: Elderly History obtained from others: Consults: Internal Medicine (Dr. Ferreira) ALL IMAGES (IF OBTAINED) HAVE BEEN PERSONALLY REVIEWED AND INTERPRETED BY MYSELF. [facility] Narrative: The patient was hypertensive he was afebrile but he was tachypneic initially. Lungs with asymmetric breath sounds concerning for focal consolidation in the setting of cough I was most concerned about pneumonia I considered the following differential diagnosis: Pneumonia, COVID, ACS, arrhythmia, heart failure, anemia I obtained a broad lab and imaging work-up to further elucidate the etiology the patient's complaints. [X-ray was reviewed by myself shows evidence of a right lower lobe infiltrate although the radiologist read the x-ray is negative I believe the patient suffering from pneumonia. I will treat empirically with ceftriaxone azithromycin. Remainder of labs remarkable for no leukocytosis, baseline CKD, evidence of volume overload with elevated BNP (no prior for comparison). Given the patient's advanced age, increased work of breathing, tachypnea and borderline hypoxia he will require hospitalization for antimicrobial therapy and further evaluation. This was discussed with the hospitalist. The patient and/or family, caregivers express understanding. The patient and/or family, caregivers agrees with the plan. Total critical care time today provided was at least 0 minutes. This excludes separately billable procedures. Critical care time (if documented) is secondary to the patient having high probability of clinically significant/life threatening deterioration in the patient's condition which required my urgent intervention. Shared decision making: I will have a discussion with the patient and or visitors regarding risk/benefits of further testing or admission. They will be made aware of of the risk/benefits inherent in this decision they will be given the opportunity to voice understanding. Lab Data Attestation: I reviewed the patient's lab results. Lab results narrative: CBC without leukocytosis, severe anemia, no thrombocytopenia. BMP with no significant electrolyte abnormalities,baseline CKD Troponin is negative, no evidence of myocardial ischemia BNP mildly elevated associated with increased volume, ventricular stretch or heart failure EKG non-ischemic Labs: Laboratory Results - last 24 hr 03/21/23 03/21/23 03/21/23 17:20 17:20 17:20 WBC 9.4 RBC 4.46 L Hgb 13.7 Hct 41.0 MCV 91.9 MCH 30.7 MCHC 33.4 RDW Std Deviation 49.9 H RDW Coeff of Azeem 14.8 H Plt Count 196 MPV 11.2 Immature Gran % (Auto) 0.600 Neut % (Auto) 86.9 H Lymph % (Auto) 8.5 L [place] % (Auto) 4.0 Eos % (Auto) 0.0 Baso % (Auto) 0.0 Absolute Neuts (auto) 8.2 H Absolute Lymphs (auto) 0.80 L Nucleated RBC % 0 Sodium 138 Potassium 4.0 Chloride 106 Carbon Dioxide 28.0 Anion Gap 4 L BUN 31 H Creatinine 1.68 H Estim Creat Clear Calc 33.88 Est GFR (MDRD) Af Amer 51 L Est GFR (MDRD) Non-Af 42 L BUN/Creatinine Ratio 18.5 Glucose 332 H Calcium 9.5 Troponin I High Sens 22 B-Natriuretic Peptide 118.7 H Radiography Diagnostic Testing: Clinical Impression(s) from Imaging Studies Chest X-Ray 03/21/23 17:35 IMPRESSION: No definite acute or significant abnormality seen. Electronically Signed: Yong Em MD at 17:49 EDT , Chest X-Ray 03/21/23 18:40 IMPRESSION: No significant additional findings or changes to the original chest x-ray report of earlier today. Electronically Signed: Yong Em MD at 19:09 EDT , Chest x-ray read interpreted personally myself shows evidence of right lower lobe pneumonia. Discharge Plan Disposition Disposition: Acute Care Hospital [facility] Discharge Date/Time: 03/21/23 22:20
[2023-03-21 17:43] VITALS: RESP 20; O2SAT 94; O2SAT 95
[2023-03-21 17:45] LABS: Absolute Neutrophil Count 8.2 X10^3/uL (2.0-7.7); Hemoglobin 13.7 g/dL (13.0-16.5); Lymphocyte % 8.5 % (19-41); Mean Corp Hgb Conc 33.4 g/dL (32-36); Mean Corpuscular Hgb 30.7 pg (27.0-32.0); Mean Corpuscular Volume 91.9 fL (80-94); Mean Platelet Vol. 11.2 fl (6.2-12.0); Monocyte# 0.38 X10^3/uL; NRBC Flagged by Analyzer 0 % (0-5); Neutrophil % 86.9 % (47-70); Platelet Count 196 K/mm3 (150-450); RBC Distribution Width CV 14.8 % (11.6-14.6); RBC Distribution Width SD 49.9 fl (35.1-43.9); Red Blood Count 4.46 M/mm3 (4.6-6.2); White Blood Count 9.4 K/mm3 (4.4-11.0)
[2023-03-21 18:05] LABS: Anion Gap 4 (5-15); BUN 31 mg/dL (7-18); BUN/Creat Ratio 18.5 RATIO (10-20); Calcium,Total 9.5 mg/dL (8.5-10.1); Chloride 106 mmol/L (98-107); Creatinine, Serum 1.68 mg/dL (0.70-1.30); EST Glomerular Filtration Rate 42 mL/min (>60); Est Glom Filt Rate - Afr Amer 51 mL/min (>60); Estimated Creatinine Clearance 33.88 ml/min; Glucose 332 mg/dL (74-106); Sodium Level 138 mmol/L (136-145); Troponin-I HS 22 pg/mL (3.0-78.0)
[2023-03-21 18:36] LABS: BNP,B-Type NATRIURETIC PEPTIDE 118.7 pg/mL (0-100)
--- NOTE | 2023-03-21 18:40 | RAD_ITS ---
STUDY: X-RAY CHEST REASON FOR EXAM: Male, 77 years old. SOB, -- lateral TECHNIQUE: Single lateral view. COMPARISON: Frontal views of 03/21/2023, one hour earlier. FINDINGS: Exam reviewed in conjunction with PA view of same day one hour earlier. No changes to the original report. Elevated left hemidiaphragm. Minimal probable linear scars across the left lung base. Degenerative changes of the spine and postoperative changes of the lumbar spine. RAD/Chest 1 View (Portable) IMPRESSION: No significant additional findings or changes to the original chest x-ray report of earlier today. Electronically Signed: Yong Em MD at 19:09 EDT ,
[2023-03-21 19:31] VITALS: BP 182/100; PULSE 71; RESP 23; O2SAT 92
--- NOTE | 2023-03-21 19:50 | ED.RN ---
Delay in antibiotics from waiting for pharmacy.
[2023-03-21 20:12] VITALS: O2SAT 93
--- NOTE | 2023-03-21 20:25 | HP.PCM.HOS_ITS ---
[facility] - General General Date of Admission: 03/21/23 Date of Service: 03/21/23 Chief Complaint: SOB [facility] Narrative MEGAN HOLLOWAY, is a 77 M with a significant history of diabetes mellitus; hypertension; atrial fibrillation who presents to the emergency department with 1 month history of persistent shortness of breath. Associated with his symptoms is a productive cough of yellow sputum. The patient's is unable to sleep because of coughing. Also, he has paroxysmal nocturnal dyspnea. Patient denies any real orthopnea. He denies any weight gain. He denies any swelling in extremities for the past 1 month. Patient was put on a course of Z-Sridhar that he completed therapy. Three-day before presentation he was started on a 10 days of Levaquin and a 15 days of steroids. Because he continues to have his symptoms he came to the emergency department. Reported at the emergency department patient was ambulated. His oxygen saturation was 90% on room air so a decision was made for patient to stay at the hospital. [facility] Medical History Abnormal stress test Acute bronchitis with bronchospasm Acute respiratory insufficiency Ambulates with cane Aortic stenosis Arthritis Asthma Asymptomatic hypertensive urgency Atherosclerotic heart disease of [place] coronary artery without angina pectoris Atrial fibrillation with RVR Back pain Bronchitis CAD in [place] artery Cardiology follow-up encounter Chronic anticoagulation Closed head injury Colitis Concussion Covid-19 COVID-19 virus infection CPAP (continuous positive airway pressure) dependence Dementia Diabetes Diabetes Diverticula of colon DM2 (diabetes mellitus, type 2) Essential hypertension Excessive bleeding Former smoker Gastric reflux History of atrial fibrillation History of echocardiogram History of edema History of renal disease History of steroid therapy History of stress test Hyperlipidemia Hypertensive urgency Inflammatory bowel disease Injury of head and neck Intractable pain Kidney stones Loss of consciousness Nonrheumatic aortic (valve) stenosis NSVT (nonsustained ventricular tachycardia) SUPA (obstructive sleep apnea) Paroxysmal atrial fibrillation Pulmonary hypertension Renal colic on left side Rheumatoid aortitis Rheumatoid arthritis Rhinovirus Sepsis Severe acute respiratory syndrome coronavirus 2 (SARS-CoV-2) infection ruled out Severe sepsis Sleep apnea SOB (shortness of breath) Ureterolithiasis Wears dentures Wears glasses Wears hearing aid Home Medications glimepiride 2 mg tablet 2 mg PO QHS diabetes 01/22/18 [History Last Taken 10/03/22] qkbamdbh-xbb-qgbor acid 300 mcg-lycopene 600 mcg-lutein 300 mcg tablet (Centrum Silver Men) 1 ea PO DAILY supplement 09/17/18 [History Last Taken 10/04/22] duloxetine 60 mg capsule,delayed release (Cymbalta) 60 mg PO DAILY depression 06/02/19 [History Last Taken 10/04/22] buspirone 7.5 mg tablet 7.5 mg PO BID depression/anxiety 04/12/21 [History Last Taken 10/04/22] calcium carbonate 600 mg-vitamin D3 5 mcg (200 unit) tablet 1 tab PO DAILY suppl ement 12/21/21 [History Last Taken 10/04/22] latanoprost 0.005 % eye drops 1 drp LEFT EYE QPM eye health 12/22/21 [History Last Taken 10/03/22] gabapentin 600 mg tablet 300 mg PO BID neuropathy 01/26/22 [History Last Taken 10/04/22] isosorbide mononitrate 60 mg tablet,extended release 24 hr 60 mg PO BID BLOOD PRESSURE 09/06/22 [History Last Taken 10/04/22] amiodarone 200 mg tablet 100 mg PO DAILY AFIB 10/02/22 [History Last Taken 10/04/22] carvedilol 25 mg tablet 25 mg PO BID HEART 10/02/22 [History Last Taken 10/04/22] cholecalciferol (vitamin D3) 25 mcg (1,000 unit) capsule 25 mcg PO DAILY S UPPLEMENT 10/02/22 [History Last Taken 10/04/22] doxazosin 4 mg tablet 4 mg PO BID BLOOD PRESSURE 10/02/22 [History Last Taken 10/04/22] esomeprazole magnesium 20 mg capsule,delayed release (Nexium) 20 mg PO DAILY GERD 10/02/22 [History Last Taken 10/04/22] loratadine 10 mg tablet 10 mg PO DAILY ALLERGIES 10/02/22 [History Last Taken 10/04/22] losartan 100 mg tablet 100 mg PO DAILY BLOOD PRESSURE 10/02/22 [History Last Taken 10/04/22] hydralazine 100 mg tablet 100 mg PO TID BLOOD PRESSURE 10/04/22 [History Last Taken 10/04/22] omega-3 fatty acids 1,000 mg capsule 1,000 mg PO BID supplement 10/04/22 [History Last Taken 10/04/22] oxybutynin chloride 10 mg tablet,extended release 24 hr 10 mg PO DAILY bladder 10/04/22 [History Last Taken 10/04/22] timolol maleate 0.5 % eye drops 1 drp LEFT EYE DAILY EYE HEALTH 10/04/22 [History Last Taken 10/03/22] furosemide 20 mg tablet 20 mg PO DAILY PRN fluid 10/22/22 [History Last Taken Unknown] prednisone 20 mg tablet 10 mg PO BREAKFAST 10/22/22 [History Last Taken Unknown] potassium chloride 10 mEq tablet,extended release(part/cryst) 10 meq PO DAILY PRN supplement #90 tabs 11/26/22 [Rx Last Taken Unknown] rosuvastatin 20 mg tablet 10 mg PO DAILY cholesterol #90 tabs 11/26/22 [Rx Last Taken Unknown] apixaban 5 mg tablet 5 mg PO BID afib #180 tabs 12/03/22 [Rx Last Taken Unknown] amlodipine 2.5 mg tablet 2.5 mg PO DAILY BLOOD PRESSURE #90 tabs 12/06/22 [Rx Last Taken Unknown] Allergy/AdvReac Type Severity Reaction Status Date / Time aspirin Allergy Severe Mouth Verified 03/21/23 17:02 swelling donepezil [From Aricept] AdvReac Severe Swelling Verified 03/21/23 17:02 minoxidil AdvReac Severe swelling Verified 03/21/23 17:02 morphine AdvReac Severe UNABLE TO Verified 03/21/23 17:02 URINATE Family History Mother Heart disease Diabetes Father Heart disease Lung disease Brother Heart disease Lung disease Cancer prostate, pancreatic Sister Diabetes Cancer uterine Surgical History Cervical vertebral fusion History of back surgery History of bilateral knee replacement History of left heart catheterization (LHC) (~12/22/21) History of removal of cyst Hx of colectomy Hx of cystoscopy Hx of surgical procedure Social History Smoking Status: Former smoker how long ago did patient quit smokin, 2ppd second hand exposure: Yes alcohol intake: never substance use type: does not use caffeine: Yes Type: coffee Number of servings: 2 ROS ROS Narrative Pertinent positives and pertinent negatives as noted in HPI. All other systems were reviewed and are negative Vital Signs Vital Signs Vital Signs: 03/21/23 17:03 03/21/23 17:43 03/21/23 17:43 Temperature 98.3 F Temperature Source Temporal Pulse Rate 95 Respiratory Rate 24 H 20 H Respiratory Depth Respiratory Pattern Blood Pressure 184/99 H Blood Pressure Mean 127 Pulse Ox 96 94 94 Oxygen Delivery Method Room Air Room Air Room Air 03/21/23 17:43 03/21/23 19:31 Temperature Temperature Source Pulse Rate 71 Respiratory Rate 23 H Respiratory Depth Normal Respiratory Pattern Tachypnea Blood Pressure 182/100 H Blood Pressure Mean 127 Pulse Ox 92 Oxygen Delivery Method Room Air Room Air Weight Weight: 96.116 kg Body Mass Index (BMI) 33.2 Physical Exam Narrative Physical exam: General: Well-nourished, well-developed. Head: Normocephalic, atraumatic, no tenderness Eyes: Vision is grossly intact. EOMI ENT, no trauma, moist mucous membranes, no rhinorrhea Neck: Nontender, No thyromegaly. CVS: Regular rate and rhythm. S1-S2 present. No murmur, gallop or rub. Respiratory : Audible rhonchi, chest wall nontender Abdomen: Soft, nontender, nondistended, normal bowel sounds, no masses : Deferred Back: Nontender, no CVA tenderness. Extremities: Nontender full range of motion, no trauma Skin: Normal color, no trauma, abrasions Neuro: Alert, oriented, cranial nerves II through XII grossly intact. Psychiatry: Normal mood. Normal affect. Not depressed. Not anxious. Results Lab / Micro Data Result Diagrams: 03/21/23 17:20 03/21/23 17:20 Labs: Laboratory Results - last 24 hr 03/21/23 17:20: WBC 9.4, RBC 4.46 L, Hgb 13.7, Hct 41.0, MCV 91.9, MCH 30.7, MCHC 33.4, RDW Std Deviation 49.9 H, RDW Coeff of Azeem 14.8 H, Plt Count 196, MPV 11.2, Immature Gran % (Auto) 0.600, Neut % (Auto) 86.9 H, Lymph % (Auto) 8.5 L, [place] % (Auto) 4.0, Eos % (Auto) 0.0, Baso % (Auto) 0.0, Absolute Neuts (auto) 8.2 H, Absolute Lymphs (auto) 0.80 L, Nucleated RBC % 0 03/21/23 17:20: Sodium 138, Potassium 4.0, Chloride 106, Carbon Dioxide 28.0, Anion Gap 4 L, BUN 31 H, Creatinine 1.68 H, Estim Creat Clear Calc 33.88, Est GFR (MDRD) Af Amer 51 L, Est GFR (MDRD) Non-Af 42 L, BUN/Creatinine Ratio 18.5, Glucose 332 H, Calcium 9.5, Troponin I High Sens 22 03/21/23 17:20: B-Natriuretic Peptide 118.7 H Micro: Microbiology 03/21/23 17:25 Nasal Secretion SARS-CoV-2 Antigen (Rapid) - Final Radiology Impression Chest X-Ray 03/21/23 17:35 IMPRESSION: No definite acute or significant abnormality seen. Electronically Signed: Yong Em MD at 17:49 EDT , Chest X-Ray 03/21/23 18:40 IMPRESSION: No significant additional findings or changes to the original chest x-ray report of earlier today. Electronically Signed: Yong Em MD at 19:09 EDT , Assessment & Plan Assessment/Plan (1) Pneumonia: (2) HTN (hypertension): PLAN: Plan Pneumonia Rapid COVID antigen negative. Chest x-ray: Interpreted by radiologist as no acute cardiopulmonary process. Upon hospital interpretation lateral view appears to have infiltrates. Respiratory Gram stain and culture pending Antibiotics: Vancomycin and Zosyn ordered. Recently started on prednisone outpatient. Prednisone ordered. DuoNeb scheduled. Albuterol as needed Legionella antigen screen and Strep antigen ordered CBC with white count of 9.4. Trend. Hypertension Blood pressure is not within goal Home blood pressure medication continued. As needed hydralazine ordered. Trend blood pressure and adjust blood pressure medications. Diabetes mellitus Patient with hyperglycemia on presentation Continue home regimen. Monitor Accu-Cheks Correction scale insulin ordered. Paroxysmal A-fib Patient in sinus rhythm on presentation. Continue home regimen. Continue home anticoagulation. 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 Stable Trend BMP. DVT prophylaxis Home anticoagulation for A-fib continued. Charges/Coding Visit Charges Inpatient E&M: 64143 Init Hosp L3
[2023-03-21 20:57] VITALS: BP 185/96; PULSE 82; RESP 25; TEMP 36.3; O2SAT 90
[2023-03-21] MEDS: hydrALAZINE 50 MG Tablet 100 MG PO (21:13)
[2023-03-21] MEDS: Carvedilol 25 MG Tablet PO (21:13)
[2023-03-21] MEDS: Isosorbide Mononitrate 60 MG Tablet PO (21:14)
[2023-03-21] MEDS: Ceftriaxone 1 GM/50 ML BAG IV (21:39)
--- NOTE | 2023-03-21 22:20 | ED.RN ---
Multiple attempts made to complete med list, unable d/t hospitalist in chart.
[2023-03-21 22:30] VITALS: BMI 33.5
[2023-03-21 23:09] VITALS: BP 197/96; PULSE 67; RESP 20; TEMP 36.5; O2SAT 95
[2023-03-21] MEDS: 0.9% Saline Lock 10 ML Syringe IV (23:35)
[2023-03-21] MEDS: guaiFENesin 1,200 MG Tablet 1200 MG PO (23:36)
--- NOTE | 2023-03-21 23:57 | PCM.RX.CS ---
Consult Pharmacy has been consulted to manage selected antiobiotic: Vancomycin Type of Consult: New start Suspected Infection: Pneumonia Prior Doses of Antibiotics Received/Current Regimen: Medications Vancomycin HCl 750 mg/ Sodium (Chloride) 265 mls @ 250 mls/hr IV Q12H JOHANNA Vancomycin HCl 2,000 mg/ (Sodium Chloride) 540 mls @ 250 mls/hr IV X1 ONE Stop: 03/22/23 00:39 Last Admin: 03/21/23 23:35 Dose: 250 mls/hr Labs: Sodium 138 mmol/L (136-145) 03/21/23 17:20 Potassium 4.0 mmol/L (3.5-5.1) 03/21/23 17:20 Chloride 106 mmol/L (98-107) 03/21/23 17:20 Carbon Dioxide 28.0 mmol/L (21.0-32.0) 03/21/23 17:20 Anion Gap 4 (5-15) L 03/21/23 17:20 BUN 31 mg/dL (7-18) H 03/21/23 17:20 Creatinine 1.68 mg/dL (0.70-1.30) H 03/21/23 17:20 Est GFR (MDRD) Af Amer 51 mL/min (>60) L 03/21/23 17:20 Est GFR (MDRD) Non-Af 42 mL/min (>60) L 03/21/23 17:20 BUN/Creatinine Ratio 18.5 RATIO (10-20) 03/21/23 17:20 Glucose 332 mg/dL (74-106) H 03/21/23 17:20 Microbiology: Microbiology 03/21/23 22:35 Urine, Clean Catch Streptococcus pneumoniae Antigen (M - Final 03/21/23 22:35 Urine, Clean Catch Legionella Antigen - Final 03/21/23 17:25 Nasal Secretion SARS-CoV-2 Antigen (Rapid) - Final Weight used for dosin.1 kg Estimated Creatinine Clearance: 40 Goal Trough: 15-20 mcg/mL Pharmacy Plan for Drug Dosing: Pharmacy Service will continue to monitor and adjust dosing as required. Follow-Up Labs: Trough Vancomycin Labs to be done on [date and time ordered]: 03/23/23 @1100
[2023-03-22] VITALS (15 sets, daily range): BP systolic 162–197; BP diastolic 87–132; PULSE 63–86; RESP 16–24; TEMP 36.6–36.7; O2SAT 92–97
[2023-03-22 00:47] LABS: Bedside Glucose 222 mg/dL (74-106)
[2023-03-22] MEDS: hydrALAZINE 20 MG/ML Vial 5 MG IV ×2 (00:59→23:25)
[2023-03-22] MEDS: 0.9% Saline Lock 10 ML Syringe IV (01:06)
[2023-03-22 05:39] LABS: M R Staph aureus DNA By PCR Negative (Negative); Probe Check PASS; Specimen Processing Control PASS
[2023-03-22] MEDS: hydrALAZINE 50 MG Tablet 100 MG PO ×3 (05:55→23:00)
[2023-03-22 06:09] LABS: Absolute Neutrophil Count 7.9 X10^3/uL (2.0-7.7); Basophil# 0.01 X10^3/uL; Basophil% 0.1 % (0-1); Eosinophil# 0.01 X10^3/uL; Eosinophils% 0.1 % (0-5); Hematocrit 37.9 % (40-54); Hemoglobin 12.6 g/dL (13.0-16.5); Lymphocyte % 17.6 % (19-41); Mean Corp Hgb Conc 33.2 g/dL (32-36); Mean Corpuscular Hgb 30.7 pg (27.0-32.0); Mean Corpuscular Volume 92.2 fL (80-94); Mean Platelet Vol. 11.3 fl (6.2-12.0); Monocyte# 0.91 X10^3/uL; Monocyte% 8.4 % (0-10); NRBC Flagged by Analyzer 0 % (0-5); Neutrophil # 7.87 X10^3/uL (2.7-7.7); Neutrophil % 73.1 % (47-70); Platelet Count 195 K/mm3 (150-450); RBC Distribution Width CV 14.6 % (11.6-14.6); RBC Distribution Width SD 48.8 fl (35.1-43.9); Red Blood Count 4.11 M/mm3 (4.6-6.2); White Blood Count 10.8 K/mm3 (4.4-11.0)
[2023-03-22 06:38] LABS: Anion Gap 4 (5-15); BUN 26 mg/dL (7-18); BUN/Creat Ratio 18.6 RATIO (10-20); Calcium,Total 8.8 mg/dL (8.5-10.1); Chloride 111 mmol/L (98-107); EST Glomerular Filtration Rate 52 mL/min (>60); Est Glom Filt Rate - Afr Amer 63 mL/min (>60); Estimated Creatinine Clearance 40.66 ml/min; Glucose 143 mg/dL (74-106); Potassium 3.6 mmol/L (3.5-5.1); Sodium Level 142 mmol/L (136-145)
[2023-03-22] MEDS: Ipratropium/Albuterol Sulfate 3 ML AMPUL.NEB INHALATION ×4 (07:06→19:21)
[2023-03-22] MEDS: predniSONE 20 MG Tablet 40 MG PO (08:03)
[2023-03-22] MEDS: Amiodarone 200 MG Tablet 100 MG PO (08:08)
[2023-03-22] MEDS: Calcium Carb/Vitamin D 1 TABLET Tablet PO (08:09)
[2023-03-22] MEDS: Multivitamins,Ther W-Minerals Tablet 1 TABLET PO (08:09)
[2023-03-22] MEDS: Carvedilol 25 MG Tablet PO ×2 (08:09→16:42)
--- NOTE | 2023-03-22 09:10 | PCM.PN.HOSP ---
Subjective Subjective Doing little bit better, normally does not wear oxygen Objective Data Objective Data Vital Signs: Vital Signs Temp Pulse Resp BP Pulse Ox O2 Del Method O2 Flow Rate 97.9 F 74 18 175/93 H 95 Nasal Cannula 2 03/22/23 07:50 03/22/23 07:50 03/22/23 07:50 03/22/23 07:50 03/22/23 07:50 03/22/23 07:50 03/22/23 07:50 Oxygen Flow Rate (L/min) 2 Oxygen Delivery Method Nasal Cannula Weight: 214 lb 1.102 oz Body Mass Index (BMI) 33.5 Intake & Output: Intake and Output for Last 24 Hours 03/21/23 03/22/23 03/23/23 03:59 03:59 03:59 Intake Total 945 / 945 50 / 50 Output Total 400 / 400 Balance 945 / 945 -350 / -350 Lab / Micro Data Result Diagrams: 03/22/23 05:38 03/22/23 05:38 Labs: Laboratory Results - last 24 hr 03/21/23 17:20: WBC 9.4, RBC 4.46 L, Hgb 13.7, Hct 41.0, MCV 91.9, MCH 30.7, MCHC 33.4, RDW Std Deviation 49.9 H, RDW Coeff of Azeem 14.8 H, Plt Count 196, MPV 11.2, Immature Gran % (Auto) 0.600, Neut % (Auto) 86.9 H, Lymph % (Auto) 8.5 L, [place] % (Auto) 4.0, Eos % (Auto) 0.0, Baso % (Auto) 0.0, Absolute Neuts (auto) 8.2 H, Absolute Lymphs (auto) 0.80 L, Nucleated RBC % 0 03/21/23 17:20: Sodium 138, Potassium 4.0, Chloride 106, Carbon Dioxide 28.0, Anion Gap 4 L, BUN 31 H, Creatinine 1.68 H, Estim Creat Clear Calc 33.88, Est GFR (MDRD) Af Amer 51 L, Est GFR (MDRD) Non-Af 42 L, BUN/Creatinine Ratio 18.5, Glucose 332 H, Calcium 9.5, Troponin I High Sens 22 03/21/23 17:20: B-Natriuretic Peptide 118.7 H 03/22/23 00:29: POC Glucose 222 H 03/22/23 03:45: MRSA (PCR) Negative 03/22/23 05:38: WBC 10.8, RBC 4.11 L, Hgb 12.6 L, Hct 37.9 L, MCV 92.2, MCH 30.7, MCHC 33.2, RDW Std Deviation 48.8 H, RDW Coeff of Azeem 14.6, Plt Count 195, MPV 11.3, Immature Gran % (Auto) 0.700, Neut % (Auto) 73.1 H, Lymph % (Auto) 17.6 L, [place] % (Auto) 8.4, Eos % (Auto) 0.1, Baso % (Auto) 0.1, Absolute Neuts (auto) 7.9 H, Absolute Lymphs (auto) 1.90, Nucleated RBC % 0 03/22/23 05:38: Sodium 142, Potassium 3.6, Chloride 111 H, Carbon Dioxide 27.0, Anion Gap 4 L, BUN 26 H, Creatinine 1.40 H, Estim Creat Clear Calc 40.66, Est GFR (MDRD) Af Amer 63, Est GFR (MDRD) Non-Af 52 L, BUN/Creatinine Ratio 18.6, Glucose 143 H, Calcium 8.8 Micro: Microbiology 03/21/23 22:45 Mucosa - Nasopharyngeal Respiratory Panel (PCR) - Final 03/21/23 22:35 Urine, Clean Catch Streptococcus pneumoniae Antigen (M - Final 03/21/23 22:35 Urine, Clean Catch Legionella Antigen - Final 03/21/23 17:25 Nasal Secretion SARS-CoV-2 Antigen (Rapid) - Final Radiography Diagnostic Testing: Radiology Impression Chest X-Ray 03/21/23 17:35 IMPRESSION: No definite acute or significant abnormality seen. Electronically Signed: Yong Em MD at 17:49 EDT , Chest X-Ray 03/21/23 18:40 IMPRESSION: No significant additional findings or changes to the original chest x-ray report of earlier today. Electronically Signed: Yong Em MD at 19:09 EDT , Physical Exam Narrative General: Alert, Oriented x3, Cooperative, No apparent distress HEENT: Atraumatic, PERRLA, EOMI, Normocephalic Oral: Moist Mucosa Neck: Supple, No JVD Lungs: Diminished, Normal air movement, rhonchi, No wheeze, No rales Cardiovascular: Regular rate, Regular Rhythm, Normal S1, Normal S2, No murmurs Abdomen: Soft, Non Tender, Non-Distended, No Hepato-splenomegaly Extremities: No edema, Capillary Refill Less than 3 Seconds Skin: No rashes, No breakdown Musculoskeletal: No Tenderness to Palpation of Joints or Extremities Neurological: Cranial nerves II-XII grossly intact, Motor Exam 5/5 strength throughout, Sensory exam intact to light touch and pain Psych/Mental Status: Normal Affect, Appropriate Assessment & Plan Assessment/Plan (1) Pneumonia: (2) HTN (hypertension): PLAN: Plan 1. Community-acquired pneumonia ? Recently started on Levaquin and steroids as an outpatient because of shortness of breath ? Currently started on vancomycin and Zosyn on admission ? COVID antigen was negative ? Respiratory panel as well as strep and Legionella antigens are negative ? Sputum cultures pending 2.? CAD/HTN/HLD/paroxysmal A. fib ? Blood pressures are stable ? Can resume his home blood pressure medications ? Continue with his statin ? Continue with Eliquis 3.? DM2/CKD IIIb ? We will hold his home oral medications ? Continue sliding scale insulin ? Accu-Cheks AC at bedtime ? We will make adjustments as necessary ? Renal function is at baseline, will continue to monitor 4.? Glaucoma ? Stable ? Continue his eyedrops 5.? SUPA ? Stable ? Continue with home CPAP 6.? GERD ? Stable ? Continue with PPI DVT: Eliquis Charges/Coding Visit Charges Inpatient E&M: 10653 Subs Hosp L2
--- NOTE | 2023-03-22 09:45 | CASEMGMT ---
OCTAVIO BERMUDEZ Assessment: Face to Face with pt for initial transition planning/care coordination assessment. OCTAVIO BERMUDEZ introduced self and role at [facility], pt voices understanding and consents to assessment. Pt is A/O x4 and answers all questions appropriately at this time. Pt lying in bed with oxygen on in no distress. Care providers, pharmacy, and demographics verified/updated. Admitting Dx: pneumonia PCP:Trey Specialists:ANDREWG, cardio; becky Modi Preferred Pharmacy: [facility] Insurance:[facility] Prescription Benefit: yes LNOK: Natasha Gimenez, Living Arrangements: Pt lives with in a single story home with a ramp to enter. Pt reports he is I in ADL's and denies concerns at home. Transportation: Pt drives self and denies concerns with transportation. DME/HHC/SNF: Pt has a nebulizer, pox, CPAP, cane that he sometimes uses and a rollator for outdoor functions. Pt reports he has a BMG with sufficient supplies. Pt has had HHC in the past but is unsure of the name of the agency. Pt has been to [place]. Pt states no concerns with going home at time of dc. Pt states that he will not dc home with oxygen, he will sign whatever I need to to not get it. Pt states he has oxygen and it took him 3 years to get rid of it and he had to pay monthly for it. Discussed having monitoring in the home of pt respiratory status, pt states he does not want any home services. 6 Clicks=home alone. Pt states no further concerns/needs. CM to follow. Advised pt to ask CM if any further question/concerns/needs arise, voices understanding. Pt Goal: Home Plan: Home
[2023-03-22] MEDS: busPIRone 5 MG Tablet 7.5 MG PO ×2 (10:18→22:57)
[2023-03-22] MEDS: Doxazosin 4 MG Tablet PO ×2 (10:19→22:58)
[2023-03-22] MEDS: Loratadine 10 MG Tablet PO (10:19)
[2023-03-22] MEDS: DULoxetine Hcl 60 MG Capsule PO (10:19)
[2023-03-22] MEDS: Losartan Potassium 100 MG Tablet PO (10:19)
[2023-03-22] MEDS: APIXABAN 5 MG TABLET PO ×2 (10:20→22:59)
[2023-03-22] MEDS: Cholecalciferol (VIT D3) 25 MCG TABLET (1,000 UNITS) PO (10:21)
[2023-03-22] MEDS: Timolol 0.5% 5ML OPTH.BTL 1 DRP LEFT EYE (10:21)
[2023-03-22] MEDS: Omega-3 Acid Ethyl Esters 1 GM Capsule PO ×2 (10:21→22:56)
[2023-03-22] MEDS: Isosorbide Mononitrate 60 MG Tablet PO ×2 (10:21→22:55)
[2023-03-22] MEDS: guaiFENesin 1,200 MG Tablet 1200 MG PO ×2 (10:21→22:57)
[2023-03-22] MEDS: amLODIPine 2.5 MG Tablet PO (10:21)
[2023-03-22] MEDS: Pantoprazole Sodium 20 MG Tablet PO (10:21)
[2023-03-22] MEDS: Gabapentin 300 MG Capsule PO ×2 (10:30→22:49)
--- NOTE | 2023-03-22 19:50 | CPS ---
o2 2 l/m added to pt own cpap machine
[2023-03-22] MEDS: Atorvastatin Calcium 40 MG Tablet PO (23:00)
[2023-03-22] MEDS: Glimepiride 2 MG Tablet PO (23:02)
[2023-03-22 23:35] LABS: Bedside Glucose 235 mg/dL (74-106)
[2023-03-23] VITALS (22 sets, daily range): BP systolic 157–195; BP diastolic 87–115; PULSE 67–100; RESP 16–28; TEMP 36.4–36.8; O2SAT 91–95
[2023-03-23] MEDS: hydrALAZINE 20 MG/ML Vial 5 MG IV ×3 (04:39→20:28)
[2023-03-23] MEDS: hydrALAZINE 50 MG Tablet 100 MG PO ×3 (06:32→22:36)
[2023-03-23] MEDS: Ipratropium/Albuterol Sulfate 3 ML AMPUL.NEB INHALATION ×4 (07:02→19:24)
[2023-03-23 07:12] LABS: Absolute Lymphocyte Count 1.66 X10^3/uL (0.83-4.51); Basophil# 0.01 X10^3/uL; Basophil% 0.1 % (0-1); Eosinophil# 0.01 X10^3/uL; Eosinophils% 0.1 % (0-5); Hematocrit 38.2 % (40-54); Hemoglobin 12.3 g/dL (13.0-16.5); Lymphocyte # 1.66 X10^3/ul (0.83-4.51); Lymphocyte % 17.5 % (19-41); Mean Corp Hgb Conc 32.2 g/dL (32-36); Mean Corpuscular Hgb 29.9 pg (27.0-32.0); Mean Corpuscular Volume 92.9 fL (80-94); Mean Platelet Vol. 11.4 fl (6.2-12.0); Monocyte# 0.75 X10^3/uL; Monocyte% 7.9 % (0-10); NRBC Flagged by Analyzer 0 % (0-5); Neutrophil # 6.99 X10^3/uL (2.7-7.7); Neutrophil % 73.5 % (47-70); Platelet Count 196 K/mm3 (150-450); RBC Distribution Width CV 14.9 % (11.6-14.6); RBC Distribution Width SD 50.8 fl (35.1-43.9); Red Blood Count 4.11 M/mm3 (4.6-6.2); White Blood Count 9.5 K/mm3 (4.4-11.0)
[2023-03-23 07:18] LABS: Bedside Glucose 148 mg/dL (74-106)
[2023-03-23 07:45] LABS: Anion Gap 4 (5-15); BUN 31 mg/dL (7-18); BUN/Creat Ratio 22.5 RATIO (10-20); Calcium,Total 8.8 mg/dL (8.5-10.1); Chloride 109 mmol/L (98-107); Creatinine, Serum 1.38 mg/dL (0.70-1.30); EST Glomerular Filtration Rate 53 mL/min (>60); Est Glom Filt Rate - Afr Amer 64 mL/min (>60); Estimated Creatinine Clearance 41.25 ml/min; Glucose 145 mg/dL (74-106); Potassium 3.7 mmol/L (3.5-5.1); Sodium Level 140 mmol/L (136-145)
[2023-03-23] MEDS: DULoxetine Hcl 60 MG Capsule PO (08:10)
[2023-03-23] MEDS: Isosorbide Mononitrate 60 MG Tablet PO ×2 (08:10→22:37)
[2023-03-23] MEDS: Cholecalciferol (VIT D3) 25 MCG TABLET (1,000 UNITS) PO (08:10)
[2023-03-23] MEDS: Losartan Potassium 100 MG Tablet PO (08:10)
[2023-03-23] MEDS: amLODIPine 2.5 MG Tablet PO (08:10)
[2023-03-23] MEDS: Pantoprazole Sodium 20 MG Tablet PO (08:10)
[2023-03-23] MEDS: guaiFENesin 1,200 MG Tablet 1200 MG PO ×2 (08:10→22:33)
[2023-03-23] MEDS: Tolterodine Tartrate 2 MG CAP.SA PO (08:10)
[2023-03-23] MEDS: APIXABAN 5 MG TABLET PO ×2 (08:10→22:38)
[2023-03-23] MEDS: Amiodarone 200 MG Tablet 100 MG PO (08:11)
[2023-03-23] MEDS: Carvedilol 25 MG Tablet PO ×2 (08:11→16:06)
[2023-03-23] MEDS: Loratadine 10 MG Tablet PO (08:11)
[2023-03-23] MEDS: Doxazosin 4 MG Tablet PO ×2 (08:11→22:38)
[2023-03-23] MEDS: predniSONE 20 MG Tablet 40 MG PO (08:11)
[2023-03-23] MEDS: busPIRone 5 MG Tablet 7.5 MG PO ×2 (08:11→22:34)
[2023-03-23] MEDS: Calcium Carb/Vitamin D 1 TABLET Tablet PO (08:11)
[2023-03-23] MEDS: Omega-3 Acid Ethyl Esters 1 GM Capsule PO ×2 (08:11→22:36)
[2023-03-23] MEDS: Multivitamins,Ther W-Minerals Tablet 1 TABLET PO (08:12)
[2023-03-23] MEDS: Gabapentin 300 MG Capsule PO ×2 (08:15→22:33)
[2023-03-23] MEDS: Timolol 0.5% 5ML OPTH.BTL 1 DRP LEFT EYE (08:15)
--- NOTE | 2023-03-23 09:02 | PCM.PN.HOSP ---
Subjective Subjective Doing well, breathing little bit easier. No issues overnight Objective Data Objective Data Vital Signs: Vital Signs Temp Pulse Resp BP Pulse Ox O2 Del Method O2 Flow Rate 98.2 F 85 18 174/94 H 92 Nasal Cannula 2 03/23/23 03:41 03/23/23 07:03 03/23/23 07:03 03/23/23 06:39 03/23/23 07:03 03/23/23 07:03 03/23/23 07:03 Oxygen Flow Rate (L/min) 2 Oxygen Delivery Method Nasal Cannula Weight: 214 lb 1.102 oz Body Mass Index (BMI) 33.5 Intake & Output: Intake and Output for Last 24 Hours 03/22/23 03/23/23 03/24/23 03:59 03:59 03:59 Intake Total 945 / 945 1330 / 1330 Output Total 825 / 825 700 / 700 Balance 945 / 945 505 / 505 -700 / -700 Lab / Micro Data Result Diagrams: 03/23/23 06:27 03/23/23 06:27 Labs: Laboratory Results - last 24 hr 03/22/23 23:18: POC Glucose 235 H 03/23/23 06:27: WBC 9.5, RBC 4.11 L, Hgb 12.3 L, Hct 38.2 L, MCV 92.9, MCH 29.9, MCHC 32.2, RDW Std Deviation 50.8 H, RDW Coeff of Azeem 14.9 H, Plt Count 196, MPV 11.4, Immature Gran % (Auto) 0.900, Neut % (Auto) 73.5 H, Lymph % (Auto) 17.5 L, [place] % (Auto) 7.9, Eos % (Auto) 0.1, Baso % (Auto) 0.1, Absolute Neuts (auto) 7.0, Absolute Lymphs (auto) 1.66, Nucleated RBC % 0 03/23/23 06:27: Sodium 140, Potassium 3.7, Chloride 109 H, Carbon Dioxide 27.0, Anion Gap 4 L, BUN 31 H, Creatinine 1.38 H, Estim Creat Clear Calc 41.25, Est GFR (MDRD) Af Amer 64, Est GFR (MDRD) Non-Af 53 L, BUN/Creatinine Ratio 22.5 H, Glucose 145 H, Calcium 8.8 03/23/23 06:36: POC Glucose 148 H Micro: Microbiology 03/21/23 21:48 Sputum, Expectorated/Coughed Gram Stain - Final 03/21/23 22:45 Mucosa - Nasopharyngeal Respiratory Panel (PCR) - Final 03/21/23 22:35 Urine, Clean Catch Streptococcus pneumoniae Antigen (M - Final 03/21/23 22:35 Urine, Clean Catch Legionella Antigen - Final 03/21/23 17:25 Nasal Secretion SARS-CoV-2 Antigen (Rapid) - Final Physical Exam Narrative General: Alert, Oriented x3, Cooperative, No apparent distress HEENT: Atraumatic, PERRLA, EOMI, Normocephalic Oral: Moist Mucosa Neck: Supple, No JVD Lungs: Diminished, Normal air movement, rhonchi, No wheeze, No rales Cardiovascular: Regular rate, Regular Rhythm, Normal S1, Normal S2, No murmurs Abdomen: Soft, Non Tender, Non-Distended, No Hepato-splenomegaly Extremities: No edema, Capillary Refill Less than 3 Seconds Skin: No rashes, No breakdown Musculoskeletal: No Tenderness to Palpation of Joints or Extremities Neurological: Cranial nerves II-XII grossly intact, Motor Exam 5/5 strength throughout, Sensory exam intact to light touch and pain Psych/Mental Status: Normal Affect, Appropriate Assessment & Plan Assessment/Plan (1) Pneumonia: (2) HTN (hypertension): PLAN: Plan 1. Community-acquired pneumonia ? Recently started on Levaquin and steroids as an outpatient because of shortness of breath ? Currently started on vancomycin and Zosyn on admission ? COVID antigen was negative ? Respiratory panel as well as strep and Legionella antigens are negative ? Sputum cultures pending 2.? CAD/HTN/HLD/paroxysmal A. fib ? Blood pressures are stable ? Can resume his home blood pressure medications ? Continue with his statin ? Continue with Eliquis 3.? DM2/CKD IIIb ? We will hold his home oral medications ? Continue sliding scale insulin ? Accu-Cheks AC at bedtime ? We will make adjustments as necessary ? Renal function is at baseline, will continue to monitor 4.? Glaucoma ? Stable ? Continue his eyedrops 5.? SUPA ? Stable ? Continue with home CPAP 6.? GERD ? Stable ? Continue with PPI DVT: Eliquis Charges/Coding Visit Charges Inpatient E&M: 05643 Subs Hosp L2
[2023-03-23 11:17] LABS: Vancomycin, Trough Level 14.3 ug/mL (5.0-15.0)
[2023-03-23 11:47] LABS: Bedside Glucose 145 mg/dL (74-106)
[2023-03-23] MEDS: Insulin Lispro 100 UNIT/ML INSULN.PEN SC ×3 (16:06→22:44)
[2023-03-23 16:34] LABS: Bedside Glucose 243 mg/dL (74-106)
--- NOTE | 2023-03-23 17:03 | NURSING ---
bp rechecked after scheduled bp meds given and bp was elevated. currently 194/115, prn hydralazine given at this time
[2023-03-23] MEDS: amLODIPine 5 MG Tablet PO (18:48)
[2023-03-23] MEDS: 0.9% Saline Lock 10 ML Syringe IV (20:28)
[2023-03-23] MEDS: Atorvastatin Calcium 40 MG Tablet PO (22:37)
[2023-03-23] MEDS: Glimepiride 2 MG Tablet PO (22:38)
[2023-03-23 23:18] LABS: Bedside Glucose 261 mg/dL (74-106)
[2023-03-24] VITALS (15 sets, daily range): BP systolic 122–194; BP diastolic 74–112; PULSE 62–92; RESP 18–24; TEMP 36.3–37; O2SAT 91–97
[2023-03-24] MEDS: MELATONIN 3 MG TABLET PO ×2 (00:18→22:16)
[2023-03-24] MEDS: hydrALAZINE 20 MG/ML Vial 5 MG IV ×2 (00:29→05:06)
[2023-03-24 06:23] LABS: Bedside Glucose 148 mg/dL (74-106)
[2023-03-24] MEDS: hydrALAZINE 50 MG Tablet 100 MG PO ×3 (06:31→22:20)
[2023-03-24] MEDS: Ipratropium/Albuterol Sulfate 3 ML AMPUL.NEB INHALATION ×4 (07:09→19:43)
[2023-03-24] MEDS: Omega-3 Acid Ethyl Esters 1 GM Capsule PO ×2 (07:39→22:23)
[2023-03-24] MEDS: predniSONE 20 MG Tablet 40 MG PO (07:39)
[2023-03-24] MEDS: Isosorbide Mononitrate 60 MG Tablet PO ×2 (07:40→22:22)
[2023-03-24] MEDS: DULoxetine Hcl 60 MG Capsule PO (07:40)
[2023-03-24] MEDS: Carvedilol 25 MG Tablet PO ×2 (07:40→17:13)
[2023-03-24] MEDS: busPIRone 5 MG Tablet 7.5 MG PO ×2 (07:41→22:19)
[2023-03-24] MEDS: Calcium Carb/Vitamin D 1 TABLET Tablet PO (07:41)
[2023-03-24] MEDS: Pantoprazole Sodium 20 MG Tablet PO (07:42)
[2023-03-24] MEDS: Doxazosin 4 MG Tablet PO ×2 (07:42→22:21)
[2023-03-24] MEDS: Amiodarone 200 MG Tablet 100 MG PO (07:43)
[2023-03-24] MEDS: Loratadine 10 MG Tablet PO (07:44)
[2023-03-24] MEDS: Multivitamins,Ther W-Minerals Tablet 1 TABLET PO (07:44)
[2023-03-24] MEDS: APIXABAN 5 MG TABLET PO ×2 (07:44→22:23)
[2023-03-24] MEDS: Losartan Potassium 100 MG Tablet PO (07:44)
[2023-03-24] MEDS: Cholecalciferol (VIT D3) 25 MCG TABLET (1,000 UNITS) PO (07:45)
[2023-03-24] MEDS: guaiFENesin 1,200 MG Tablet 1200 MG PO ×2 (07:45→22:21)
[2023-03-24] MEDS: Timolol 0.5% 5ML OPTH.BTL 1 DRP LEFT EYE (07:46)
[2023-03-24] MEDS: Gabapentin 300 MG Capsule PO ×2 (07:50→22:19)
[2023-03-24] MEDS: amLODIPine 10 MG Tablet PO (07:51)
--- NOTE | 2023-03-24 09:46 | PCM.PN.HOSP ---
Subjective Subjective Doing well, had to go up on his oxygen today because of sputum production Objective Data Objective Data Vital Signs: Vital Signs Temp Pulse Resp BP Pulse Ox O2 Del Method O2 Flow Rate 97.3 F L 76 20 H 177/98 H 95 Nasal Cannula 4 03/24/23 08:00 03/24/23 08:00 03/24/23 08:00 03/24/23 08:00 03/24/23 08:00 03/24/23 08:00 03/24/23 08:00 Oxygen Flow Rate (L/min) 4 Oxygen Delivery Method Nasal Cannula Weight: 214 lb 1.102 oz Body Mass Index (BMI) 33.5 Intake & Output: Intake and Output for Last 24 Hours 03/23/23 03/24/23 03/25/23 03:59 03:59 03:59 Intake Total 1330 / 1330 1415 / 1415 50 / 50 Output Total 825 / 825 1600 / 1600 Balance 505 / 505 -185 / -185 50 / 50 Lab / Micro Data Result Diagrams: 03/23/23 06:27 03/23/23 06:27 Labs: Laboratory Results - last 24 hr 03/23/23 10:52: Vancomycin Trough 14.3 03/23/23 11:26: POC Glucose 145 H 03/23/23 16:05: POC Glucose 243 H 03/23/23 22:43: POC Glucose 261 H 03/24/23 05:58: POC Glucose 148 H Micro: Microbiology 03/21/23 21:48 Sputum, Expectorated/Coughed Gram Stain - Final 03/21/23 21:48 Sputum, Expectorated/Coughed Respiratory Culture - Preliminary Gram negative [place] 03/21/23 22:45 Mucosa - Nasopharyngeal Respiratory Panel (PCR) - Final 03/21/23 22:35 Urine, Clean Catch Streptococcus pneumoniae Antigen (M - Final 03/21/23 22:35 Urine, Clean Catch Legionella Antigen - Final 03/21/23 17:25 Nasal Secretion SARS-CoV-2 Antigen (Rapid) - Final Physical Exam Narrative General: Alert, Oriented x3, Cooperative, No apparent distress HEENT: Atraumatic, PERRLA, EOMI, Normocephalic Oral: Moist Mucosa Neck: Supple, No JVD Lungs: Diminished, Normal air movement, rhonchi?improved, No wheeze, No rales Cardiovascular: Regular rate, Regular Rhythm, Normal S1, Normal S2, No murmurs Abdomen: Soft, Non Tender, Non-Distended, No Hepato-splenomegaly Extremities: No edema, Capillary Refill Less than 3 Seconds Skin: No rashes, No breakdown Musculoskeletal: No Tenderness to Palpation of Joints or Extremities Neurological: Cranial nerves II-XII grossly intact, Motor Exam 5/5 strength throughout, Sensory exam intact to light touch and pain Psych/Mental Status: Normal Affect, Appropriate Assessment & Plan Assessment/Plan (1) Pneumonia: (2) HTN (hypertension): PLAN: Plan 1. Community-acquired pneumonia ? Recently started on Levaquin and steroids as an outpatient because of shortness of breath ? Sputum culture with gram-negative rods, continue with just Zosyn at this time ? COVID antigen was negative ? Respiratory panel as well as strep and Legionella antigens are negative ? Sputum cultures pending, gram-negative rods 2.? CAD/HTN/HLD/paroxysmal A. fib ? Blood pressures are stable ? Can resume his home blood pressure medications, I increased his Norvasc from 2.5 mg to 10 mg given hypertension ? Continue with his statin ? Continue with Eliquis 3.? DM2/CKD IIIb ? We will hold his home oral medications ? Continue sliding scale insulin ? Accu-Cheks AC at bedtime ? We will make adjustments as necessary ? Renal function is at baseline, will continue to monitor 4.? Glaucoma ? Stable ? Continue his eyedrops 5.? SUPA ? Stable ? Continue with home CPAP 6.? GERD ? Stable ? Continue with PPI DVT: Eliquis Charges/Coding Visit Charges Inpatient E&M: 83400 Subs Hosp L2
[2023-03-24 10:35] LABS: Bedside Glucose 191 mg/dL (74-106)
[2023-03-24] MEDS: Insulin Lispro 100 UNIT/ML INSULN.PEN SC ×3 (11:33→22:28)
[2023-03-24] MEDS: 0.9% Saline Lock 10 ML Syringe IV (13:19)
--- NOTE | 2023-03-24 14:37 | NURSING ---
ambulated [place] on 4L, pox 93-96%
[2023-03-24 17:37] LABS: Bedside Glucose 249 mg/dL (74-106)
[2023-03-24] MEDS: Glimepiride 2 MG Tablet PO (22:22)
[2023-03-24] MEDS: Atorvastatin Calcium 40 MG Tablet PO (22:23)
[2023-03-24 22:48] LABS: Bedside Glucose 197 mg/dL (74-106)
[2023-03-25] VITALS (13 sets, daily range): BP systolic 158–180; BP diastolic 92–106; PULSE 68–86; RESP 18–20; TEMP 36.6–36.8; O2SAT 87–98
[2023-03-25] MEDS: hydrALAZINE 50 MG Tablet 100 MG PO ×3 (05:30→20:56)
[2023-03-25] MEDS: Insulin Lispro 100 UNIT/ML INSULN.PEN SC ×4 (06:01→21:02)
[2023-03-25 06:17] LABS: Anion Gap 7 (5-15); BUN 41 mg/dL (7-18); BUN/Creat Ratio 28.7 RATIO (10-20); Calcium,Total 8.5 mg/dL (8.5-10.1); Chloride 110 mmol/L (98-107); Creatinine, Serum 1.43 mg/dL (0.70-1.30); EST Glomerular Filtration Rate 51 mL/min (>60); Est Glom Filt Rate - Afr Amer 61 mL/min (>60); Glucose 134 mg/dL (74-106); Potassium 3.6 mmol/L (3.5-5.1); Sodium Level 143 mmol/L (136-145)
[2023-03-25 06:22] LABS: Bedside Glucose 151 mg/dL (74-106)
[2023-03-25] MEDS: Ipratropium/Albuterol Sulfate 3 ML AMPUL.NEB INHALATION ×4 (07:13→19:39)
[2023-03-25] MEDS: hydrALAZINE 20 MG/ML Vial 5 MG IV (07:57)
[2023-03-25] MEDS: Multivitamins,Ther W-Minerals Tablet 1 TABLET PO (08:03)
[2023-03-25] MEDS: Amiodarone 200 MG Tablet 100 MG PO (08:03)
[2023-03-25] MEDS: predniSONE 20 MG Tablet 40 MG PO (08:03)
[2023-03-25] MEDS: Calcium Carb/Vitamin D 1 TABLET Tablet PO (08:04)
[2023-03-25] MEDS: Carvedilol 25 MG Tablet PO ×2 (08:04→16:57)
[2023-03-25] MEDS: Furosemide 40 MG/4 ML Vial IV (08:57)
[2023-03-25] MEDS: 0.9% Saline Lock 10 ML Syringe IV (08:58)
[2023-03-25] MEDS: Cholecalciferol (VIT D3) 25 MCG TABLET (1,000 UNITS) PO (11:06)
[2023-03-25] MEDS: Pantoprazole Sodium 20 MG Tablet PO (11:06)
[2023-03-25] MEDS: APIXABAN 5 MG TABLET PO ×2 (11:06→20:54)
[2023-03-25] MEDS: Loratadine 10 MG Tablet PO (11:07)
[2023-03-25] MEDS: Doxazosin 4 MG Tablet PO ×2 (11:07→20:52)
[2023-03-25] MEDS: Isosorbide Mononitrate 60 MG Tablet PO ×2 (11:08→20:52)
[2023-03-25] MEDS: Omega-3 Acid Ethyl Esters 1 GM Capsule PO ×2 (11:08→20:57)
[2023-03-25] MEDS: DULoxetine Hcl 60 MG Capsule PO (11:08)
[2023-03-25] MEDS: Losartan Potassium 100 MG Tablet PO (11:08)
[2023-03-25] MEDS: Tolterodine Tartrate 2 MG CAP.SA PO (11:08)
[2023-03-25] MEDS: amLODIPine 10 MG Tablet PO (11:09)
[2023-03-25] MEDS: guaiFENesin 1,200 MG Tablet 1200 MG PO ×2 (11:09→20:52)
[2023-03-25] MEDS: Timolol 0.5% 5ML OPTH.BTL 1 DRP LEFT EYE (11:09)
[2023-03-25] MEDS: Gabapentin 300 MG Capsule PO ×2 (11:13→20:50)
[2023-03-25] MEDS: busPIRone 5 MG Tablet 7.5 MG PO ×2 (11:13→20:56)
[2023-03-25 12:04] LABS: Bedside Glucose 234 mg/dL (74-106)
--- NOTE | 2023-03-25 12:29 | PN.HOSP_ITS ---
Subjective Subjective Still with significant productive sputum, sputum cultures with Pseudomonas Objective Data Objective Data Vital Signs: Vital Signs Temp Pulse Resp BP Pulse Ox O2 Del Method O2 Flow Rate 98.0 F 82 20 H 180/106 H 92 Nasal Cannula 4 03/25/23 07:49 03/25/23 11:21 03/25/23 11:21 03/25/23 07:49 03/25/23 07:49 03/25/23 11:21 03/25/23 11:21 Oxygen Flow Rate (L/min) 4 Oxygen Delivery Method Nasal Cannula Weight: 214 lb 1.102 oz Body Mass Index (BMI) 33.5 Intake & Output: Intake and Output for Last 24 Hours 03/24/23 03/25/23 03/26/23 03:59 03:59 03:59 Intake Total 1415 / 1415 650 / 650 50 / 50 Output Total 1600 / 1600 500 / 500 Balance -185 / -185 150 / 150 50 / 50 Lab / Micro Data Result Diagrams: 03/23/23 06:27 03/25/23 05:20 Labs: Laboratory Results - last 24 hr 03/24/23 17:10: POC Glucose 249 H 03/24/23 22:15: POC Glucose 197 H 03/25/23 05:20: Sodium 143, Potassium 3.6, Chloride 110 H, Carbon Dioxide 26.0, Anion Gap 7, BUN 41 H, Creatinine 1.43 H, Estim Creat Clear Calc 39.80, Est GFR (MDRD) Af Amer 61, Est GFR (MDRD) Non-Af 51 L, BUN/Creatinine Ratio 28.7 H, Gl ucose 134 H, Calcium 8.5 03/25/23 05:57: POC Glucose 151 H 03/25/23 11:46: POC Glucose 234 H Micro: Microbiology 03/21/23 21:48 Sputum, Expectorated/Coughed Gram Stain - Final 03/21/23 21:48 Sputum, Expectorated/Coughed Respiratory Culture - Preliminary Pseudomonas aeruginosa 03/21/23 22:45 Mucosa - Nasopharyngeal Respiratory Panel (PCR) - Final 03/21/23 22:35 Urine, Clean Catch Streptococcus pneumoniae Antigen (M - Final 03/21/23 22:35 Urine, Clean Catch Legionella Antigen - Final 03/21/23 17:25 Nasal Secretion SARS-CoV-2 Antigen (Rapid) - Final Physical Exam Narrative General: Alert, Oriented x3, Cooperative, No apparent distress HEENT: Atraumatic, PERRLA, EOMI, Normocephalic Oral: Moist Mucosa Neck: Supple, No JVD Lungs: Diminished, Normal air movement, rhonchi?improved, No wheeze, No rales Cardiovascular: Regular rate, Regular Rhythm, Normal S1, Normal S2, No murmurs Abdomen: Soft, Non Tender, Non-Distended, No Hepato-splenomegaly Extremities: No edema, Capillary Refill Less than 3 Seconds Skin: No rashes, No breakdown Musculoskeletal: No Tenderness to Palpation of Joints or Extremities Neurological: Cranial nerves II-XII grossly intact, Motor Exam 5/5 strength throughout, Sensory exam intact to light touch and pain Psych/Mental Status: Normal Affect, Appropriate Assessment & Plan Assessment/Plan (1) Pneumonia: (2) HTN (hypertension): PLAN: Plan 1. Community-acquired pneumonia due to Pseudomonas ? Recently started on Levaquin and steroids as an outpatient because of sh ortness of breath ?He was Zosyn, sputum culture with Pseudomonas sensitivities are pending ? COVID antigen was negative ? Respiratory panel as well as strep and Legionella antigens are negative ? We will obtain an ambulatory pulse ox today 2.? CAD/HTN/HLD/paroxysmal A. fib ? Blood pressures are stable ? Can resume his home blood pressure medications, I increased his Norvasc from 2.5 mg to 10 mg given hypertension ? Continue with his statin ? Continue with Eliquis 3.? DM2/CKD IIIb ? We will hold his home oral medications ? Continue sliding scale insulin ? Accu-Cheks AC at bedtime ? We will make adjustments as necessary ? Renal function is at baseline, will continue to monitor 4.? Glaucoma ? Stable ? Continue his eyedrops 5.? SUPA ? Stable ? Continue with home CPAP 6.? GERD ? Stable ? Continue with PPI DVT: Eliquis Charges/Coding Visit Charges Inpatient E&M: 73467 Subs Hosp L2
[2023-03-25 17:00] LABS: Bedside Glucose 251 mg/dL (74-106)
[2023-03-25] MEDS: MELATONIN 3 MG TABLET PO (20:50)
[2023-03-25] MEDS: Atorvastatin Calcium 40 MG Tablet PO (20:53)
[2023-03-25] MEDS: Glimepiride 2 MG Tablet PO (20:56)
[2023-03-25 21:25] LABS: Bedside Glucose 221 mg/dL (74-106)
[2023-03-26] VITALS (9 sets, daily range): BP systolic 138–158; BP diastolic 85–89; PULSE 74–91; RESP 18–20; TEMP 36.7; O2SAT 91–96
[2023-03-26 06:05] LABS: Absolute Lymphocyte Count 1.79 X10^3/uL (0.83-4.51); Absolute Neutrophil Count 8.2 X10^3/uL (2.0-7.7); Basophil# 0.01 X10^3/uL; Basophil% 0.1 % (0-1); Hemoglobin 12.8 g/dL (13.0-16.5); Lymphocyte # 1.79 X10^3/ul (0.83-4.51); Lymphocyte % 16.7 % (19-41); Mean Corp Hgb Conc 33.7 g/dL (32-36); Mean Corpuscular Hgb 30.8 pg (27.0-32.0); Mean Corpuscular Volume 91.6 fL (80-94); Monocyte# 0.73 X10^3/uL; Monocyte% 6.8 % (0-10); NRBC Flagged by Analyzer 0 % (0-5); Neutrophil # 8.15 X10^3/uL (2.7-7.7); Platelet Count 182 K/mm3 (150-450); RBC Distribution Width CV 15.3 % (11.6-14.6); RBC Distribution Width SD 50.9 fl (35.1-43.9); Red Blood Count 4.15 M/mm3 (4.6-6.2); White Blood Count 10.7 K/mm3 (4.4-11.0)
[2023-03-26] MEDS: Insulin Lispro 100 UNIT/ML INSULN.PEN SC (06:32)
[2023-03-26] MEDS: hydrALAZINE 50 MG Tablet 100 MG PO ×2 (06:33→13:24)
[2023-03-26 06:55] LABS: Anion Gap 6 (5-15); BUN 42 mg/dL (7-18); BUN/Creat Ratio 27.1 RATIO (10-20); Calcium,Total 8.5 mg/dL (8.5-10.1); Chloride 109 mmol/L (98-107); Creatinine, Serum 1.55 mg/dL (0.70-1.30); EST Glomerular Filtration Rate 46 mL/min (>60); Est Glom Filt Rate - Afr Amer 56 mL/min (>60); Estimated Creatinine Clearance 36.72 ml/min; Glucose 151 mg/dL (74-106); Potassium 3.3 mmol/L (3.5-5.1); Sodium Level 141 mmol/L (136-145)
[2023-03-26 07:00] LABS: Bedside Glucose 159 mg/dL (74-106)
[2023-03-26] MEDS: Ipratropium/Albuterol Sulfate 3 ML AMPUL.NEB INHALATION ×3 (07:23→14:35)
[2023-03-26] MEDS: Furosemide 40 MG/4 ML Vial IV (08:28)
[2023-03-26] MEDS: guaiFENesin 1,200 MG Tablet 1200 MG PO (08:30)
[2023-03-26] MEDS: Loratadine 10 MG Tablet PO (08:30)
[2023-03-26] MEDS: Potassium Chloride Oral Tablet 20 MEQ 40 MEQ PO (08:34)
[2023-03-26] MEDS: Pantoprazole Sodium 20 MG Tablet PO (08:34)
[2023-03-26] MEDS: Gabapentin 300 MG Capsule PO (08:35)
[2023-03-26] MEDS: amLODIPine 10 MG Tablet PO (08:35)
[2023-03-26] MEDS: Timolol 0.5% 5ML OPTH.BTL 1 DRP LEFT EYE (08:35)
[2023-03-26] MEDS: Amiodarone 200 MG Tablet 100 MG PO (08:36)
[2023-03-26] MEDS: Multivitamins,Ther W-Minerals Tablet 1 TABLET PO (08:37)
[2023-03-26] MEDS: busPIRone 5 MG Tablet 7.5 MG PO (08:38)
[2023-03-26] MEDS: Calcium Carb/Vitamin D 1 TABLET Tablet PO (08:38)
[2023-03-26] MEDS: predniSONE 20 MG Tablet 40 MG PO (08:38)
[2023-03-26] MEDS: Losartan Potassium 100 MG Tablet PO (08:39)
[2023-03-26] MEDS: Doxazosin 4 MG Tablet PO (08:39)
[2023-03-26] MEDS: APIXABAN 5 MG TABLET PO (08:39)
[2023-03-26] MEDS: Carvedilol 25 MG Tablet PO (08:40)
[2023-03-26] MEDS: DULoxetine Hcl 60 MG Capsule PO (08:40)
[2023-03-26] MEDS: Isosorbide Mononitrate 60 MG Tablet PO (08:40)
[2023-03-26] MEDS: Omega-3 Acid Ethyl Esters 1 GM Capsule PO (08:40)
--- NOTE | 2023-03-26 09:18 | PCM.DC ---
Discharge Instructions Diet Discharge Diet: Low fat / Low cholesterol Activity Discharge Activity: Return to Normal Activity Dressing / Incision Call your doctor if you observe: Fever of 101 or Higher, Shortness of breath, Dizziness, Fainting spells, Swelling in the ankles, Chest pain and Increased palpitations (irregular heartbeat) Follow Up Care Test Results: Test results from this visit will be discussed in further detail at your follow-up appointment, if applicable. Discharge Plan Admission Admit Date/Time: 03/21/23 20:32 Attending Provider: Boris Bojorquez Primary Care Provider: Jayme Yang Consulting Providers: Pedro Ferreira Discharge Orders/Prescriptions Prescriptions: New amlodipine 10 mg Tablet 10 mg PO DAILY 30 Days Qty: 30 0RF ciprofloxacin HCl [Cipro] 500 mg tablet 500 mg PO BID Qty: 10 0RF Continued duloxetine [Cymbalta] 60 mg capsule,delayed release(DR/EC) 60 mg PO DAILY gabapentin 600 mg tablet 300 mg PO BID isosorbide mononitrate 60 mg tablet extended release 24 hr 60 mg PO BID furosemide 20 mg tablet 20 mg PO DAILY PRN (Reason: fluid) glimepiride 2 MG tablet 2 mg PO QHS Label Comments: Centrum Silver Men 1 EACH tablet 1 ea PO DAILY buspirone 7.5 mg tablet 7.5 mg PO BID calcium carbonate-vitamin D3 600 mg-5 mcg (200 unit) Tablet 1 tab PO DAILY latanoprost 0.005 % Drops 1 drp LEFT EYE QPM carvedilol 25 mg tablet 25 mg PO BID losartan 100 mg tablet 100 mg PO DAILY loratadine 10 mg Tablet 10 mg PO DAILY esomeprazole magnesium [Nexium] 20 mg Capsule,Delayed Release(Dr/Ec) 20 mg PO DAILY cholecalciferol (vitamin D3) 25 mcg (1,000 unit) Capsule 25 mcg PO DAILY amiodarone 200 mg tablet 100 mg PO DAILY doxazosin 4 mg tablet 4 mg PO BID omega-3 fatty acids 1,000 mg Capsule 1,000 mg PO BID oxybutynin chloride 10 mg tablet extended release 24hr 10 mg PO QODAY timolol maleate 0.5 % drops 1 drp LEFT EYE DAILY hydralazine 100 mg tablet 100 mg PO TID tramadol 50 mg tablet 50 mg PO TID PRN PRN (Reason: Pain) Label Comments: TAKE 1 TABLET BY MOUTH THREE TIMES DAILY NEEDED FOR 30 DAYS infliximab [Remicade] 100 mg recon soln 100 mg IV Q7D Label Comments: INFUSE 10MG/KG IV EVERY 7 WEEKS rosuvastatin 20 mg tablet 20 mg PO DAILY omega-3 fatty acids-vitamin E 1,000 mg Capsule PO potassium chloride 10 mEq tablet,ER particles/crystals 10 meq PO DAILY PRN (Reason: supplement) Qty: 90 3RF apixaban 5 mg tablet 5 mg PO BID Qty: 180 3RF Discontinued prednisone 20 mg tablet 40 mg PO BREAKFAST amlodipine 2.5 mg tablet 2.5 mg PO DAILY Qty: 90 3RF Referrals / Follow Up: Jayme Yang MD [Primary Care Provider] - Within 1 Week Disposition Disposition (needs filled in before D/C Order can be placed): Home, Self Care
--- NOTE | 2023-03-26 10:09 | CASEMGMT ---
Pt does not qualify for home oxygen. RN CM into pt room, pt lying in bed on RA. Pt denies any homegoing needs. Pt declines HH and Pt Link. Pt feels safe to go home and is SBA.
--- NOTE | 2023-03-26 10:43 | PHA.DC.MC ---
Pharmacy Service has performed discharge medication reconciliation and counseling for this patient. 1. CIPROFLOXACIN 500MG PO BID X 5 DAYS The patient's discharge medication list was reviewed for discrepancies and discrepancies were resolved. Home Medications glimepiride 2 mg tablet 2 mg PO QHS diabetes 01/22/18 [id number] 300 mcg-K 60 mcg-lycop 600 mcg-lutein 300 mcg tablet (Centrum Silver Men) 1 ea PO DAILY supplement 09/17/18 duloxetine 60 mg capsule,delayed release (Cymbalta) 60 mg PO DAILY depression 06/02/19 buspirone 7.5 mg tablet 7.5 mg PO BID depression/anxiety 04/12/21 calcium carbonate 600 mg-vitamin D3 5 mcg (200 unit) tablet 1 tab PO DAILY supplement 12/21/21 latanoprost 0.005 % eye drops 1 drp LEFT EYE QPM eye health 12/22/21 gabapentin 600 mg tablet 300 mg PO BID neuropathy 01/26/22 isosorbide mononitrate 60 mg tablet,extended release 24 hr 60 mg PO BID BLOOD PRESSURE 09/06/22 amiodarone 200 mg tablet 100 mg PO DAILY AFIB 10/02/22 carvedilol 25 mg tablet 25 mg PO BID HEART 10/02/22 cholecalciferol (vitamin D3) 25 mcg (1,000 unit) capsule 25 mcg PO DAILY SUPPLEMENT 10/02/22 doxazosin 4 mg tablet 4 mg PO BID BLOOD PRESSURE 10/02/22 esomeprazole magnesium 20 mg capsule,delayed release (Nexium) 20 mg PO DAILY GERD 10/02/22 loratadine 10 mg tablet 10 mg PO DAILY ALLERGIES 10/02/22 losartan 100 mg tablet 100 mg PO DAILY BLOOD PRESSURE 10/02/22 hydralazine 100 mg tablet 100 mg PO TID BLOOD PRESSURE 10/04/22 omega-3 fatty acids 1,000 mg capsule 1,000 mg PO BID supplement 10/04/22 oxybutynin chloride 10 mg tablet,extended release 24 hr 10 mg PO QODAY bladder 10/04/22 timolol maleate 0.5 % eye drops 1 drp LEFT EYE DAILY EYE HEALTH 10/04/22 furosemide 20 mg tablet 20 mg PO DAILY PRN fluid 10/22/22 potassium chloride 10 mEq tablet,extended release(part/cryst) 10 meq PO DAILY PRN supplement #90 tabs 11/26/22 apixaban 5 mg tablet 5 mg PO BID afib #180 tabs 12/03/22 infliximab 100 mg intravenous solution (Remicade) 100 mg IV Q7D crohns 03/21/23 rosuvastatin 20 mg tablet 20 mg PO DAILY cholesterol 03/21/23 tramadol 50 mg tablet 50 mg PO TID PRN PRN Pain 03/21/23 omega-3 fatty acids-vitamin E 1,000 mg capsule cap PO Check with primary doctor 03/22/23 amlodipine 10 mg tablet 10 mg PO DAILY 30 days #30 tabs 03/26/23 ciprofloxacin HCl 500 mg tablet (Cipro) 500 mg PO BID #10 tabs 03/26/23 The patient was counseled on the following discharge medications and changes in medications for homegoing were reviewed. The Reason for Use, instructions for use, and potential side effects were reviewed for all new medications. The patient's questions regarding all of their medications were answered. The patient was able to verbally demonstrate an understanding of their discharge medications. Patient counseled by pharmacy picking technicianBeau.
--- NOTE | 2023-03-26 11:45 | DS.PCM_ITS ---
Providers Date of Admission: 03/21/23 Primary Care Physician: Dr. Jayme Yang MD Reason For Visit: PNEUMONIA Diagnosis Discharge Diagnosis (1) Pneumonia: Status: Acute Code(s): J18.9 - Pneumonia, unspecified organism (2) HTN (hypertension): Status: Chronic Code(s): I10 - Essential (primary) hypertension Medications at Discharge Home Medications glimepiride 2 mg tablet 2 mg PO QHS diabetes 01/22/18 tmeifags-kq-rvltt 300 mcg-K 60 mcg-lycop 600 mcg-lutein 300 mcg tablet (Centrum Silver Men) 1 ea PO DAILY supplement 09/17/18 duloxetine 60 mg capsule,delayed release (Cymbalta) 60 mg PO DAILY depression 06/02/19 buspirone 7.5 mg tablet 7.5 mg PO BID depression/anxiety 04/12/21 calcium carbonate 600 mg-vitamin D3 5 mcg (200 unit) tablet 1 tab PO DAILY supplement 12/21/21 latanoprost 0.005 % eye drops 1 drp LEFT EYE QPM eye health 12/22/21 gabapentin 600 mg tablet 300 mg PO BID neuropathy 01/26/22 isosorbide mononitrate 60 mg tablet,extended release 24 hr 60 mg PO BID BLOOD PRESSURE 09/06/22 amiodarone 200 mg tablet 100 mg PO DAILY AFIB 10/02/22 carvedilol 25 mg tablet 25 mg PO BID HEART 10/02/22 cholecalciferol (vitamin D3) 25 mcg (1,000 unit) capsule 25 mcg PO DAILY SUPPLEMENT 10/02/22 doxazosin 4 mg tablet 4 mg PO BID BLOOD PRESSURE 10/02/22 esomeprazole magnesium 20 mg capsule,delayed release (Nexium) 20 mg PO DAILY GERD 10/02/22 loratadine 10 mg tablet 10 mg PO DAILY ALLERGIES 10/02/22 losartan 100 mg tablet 100 mg PO DAILY BLOOD PRESSURE 10/02/22 hydralazine 100 mg tablet 100 mg PO TID BLOOD PRESSURE 10/04/22 omega-3 fatty acids 1,000 mg capsule 1,000 mg PO BID supplement 10/04/22 oxybutynin chloride 10 mg tablet,extended release 24 hr 10 mg PO QODAY bladder 10/04/22 timolol maleate 0.5 % eye drops 1 drp LEFT EYE DAILY EYE HEALTH 10/04/22 furosemide 20 mg tablet 20 mg PO DAILY PRN fluid 10/22/22 potassium chloride 10 mEq tablet,extended release(part/cryst) 10 meq PO DAILY PRN supplement #90 tabs 11/26/22 apixaban 5 mg tablet 5 mg PO BID afib #180 tabs 12/03/22 infliximab 100 mg intravenous solution (Remicade) 100 mg IV Q7D crohns 03/21/23 rosuvastatin 20 mg tablet 20 mg PO DAILY cholesterol 03/21/23 tramadol 50 mg tablet 50 mg PO TID PRN PRN Pain 03/21/23 omega-3 fatty acids-vitamin E 1,000 mg capsule cap PO Check with primary doctor 03/22/23 amlodipine 10 mg tablet 10 mg PO DAILY 30 days #30 tabs 03/26/23 ciprofloxacin HCl 500 mg tablet (Cipro) 500 mg PO BID #10 tabs 03/26/23 Hospital Course Operations None Procedures None Summary of Care Provided Minutes Spent on Discharge: 37 Hospital Course: Per HPI: MEGAN HOLLOWAY, is a 77 M with a significant history of diabetes mellitus; hypertension; atrial fibrillation who presents to the emergency department with 1 month history of persistent shortness of breath. Associated with his symptoms is a productive cough of yellow sputum.? The patient's is unable to sleep because of coughing.? Also, he has paroxysmal nocturnal dyspnea.? Patient denies any real orthopnea.? He denies any weight gain.? He denies any swelling in extremities for the past 1 month.? Patient was put on a course of Z-Sridhar that he completed therapy.? Three-day before presentation he was started on a 10 days of Levaquin and a 15 days of steroids.? Because he continues to have his symptoms he came to the emergency department.? Reported at the emergency department patient was ambulated.? His oxygen saturation was 90% on room air so a decision was made for patient to stay at the hospital. Hospital Course: 1. Community-acquired pneumonia secondary to Pseudomonas?77-year-old male presents from home with shortness of breath and needing oxygen periodically. He was started initially on broad-spectrum antibiotics including vancomycin and Zosyn secondary to failure of outpatient therapy. He started Levaquin about 2 d ays prior to admission as well as a steroid course. Sputum culture did come back ultimately has a Pseudomonas aeruginosa unfortunately sensitivities could not be done so this had to be sent to an outside lab. He has significantly improved over the last several days to not needing oxygen with ambulation today. He was given 2 doses of IV Lasix which I think has helped him significantly so I do recommend that he take the p.o. Lasix that he takes as needed at home for the next several days. I do recommend that he follow-up with his PCP in 3 to 5 days so they can follow-up with the sensitivities of the Pseudomonas as well as monitor his renal function, he has completed 5 days of Zosyn therapy here in the hospital and will plan on 5 more days of p.o. Cipro on discharge. I discussed with him the plan for discharge today and he expressed understanding of the risk and benefits of going home and he would like to go home today. 2. Coronary artery disease, hypertension, hyperlipidemia, paroxysmal A-fib, type 2 diabetes, CKD 3B, glaucoma, SUPA, GERD are all chronic medical conditions which complicate his care. His home medications were continued where appropriate. Physical Exam Narrative General: Alert, Oriented x3, Cooperative, No apparent distress HEENT: Atraumatic, PERRLA, EOMI, Normocephalic Oral: Moist Mucosa Neck: Supple, No JVD Lungs: Diminished, Normal air movement, rhonchi?improved, No wheeze, No rales Cardiovascular: Regular rate, Regular Rhythm, Normal S1, Normal S2, No murmurs Abdomen: Soft, Non Tender, Non-Distended, No Hepato-splenomegaly Extremities: No edema, Capillary Refill Less than 3 Seconds Skin: No rashes, No breakdown Musculoskeletal: No Tenderness to Palpation of Joints or Extremities Neurological: Cranial nerves II-XII grossly intact, Motor Exam 5/5 strength throughout, Sensory exam intact to light touch and pain Psych/Mental Status: Normal Affect, Appropriate Weight / BMI Weight Weight: 214 lb 1.102 oz Body Mass Index (BMI) 33.5 ABG / Lab / Microbiology Data Result Diagrams: 03/26/23 05:56 03/26/23 05:56 Laboratory: Laboratory Results - last 24 hr 03/25/23 11:46: POC Glucose 234 H 03/25/23 16:41: POC Glucose 251 H 03/25/23 21:01: POC Glucose 221 H 03/26/23 05:56: WBC 10.7, RBC 4.15 L, Hgb 12.8 L, Hct 38.0 L, MCV 91.6, MCH 30.8, MCHC 33.7, RDW Std Deviation 50.9 H, RDW Coeff of Azeem 15.3 H, Plt Count 182, MPV 10.0, Immature Gran % (Auto) 0.400, Neut % (Auto) 76.0 H, Lymph % (Auto) 16.7 L, [place] % (Auto) 6.8, Eos % (Auto) 0.0, Baso % (Auto) 0.1, Absolute Neuts (auto) 8.2 H, Absolute Lymphs (auto) 1.79, Nucleated RBC % 0 03/26/23 05:56: Sodium 141, Potassium 3.3 L, Chloride 109 H, Carbon Dioxide 26.0, Anion Gap 6, BUN 42 H, Creatinine 1.55 H, Estim Creat Clear Calc 36.72, Est GFR (MDRD) Af Amer 56 L, Est GFR (MDRD) Non-Af 46 L, BUN/Creatinine Ratio 27.1 H, Glucose 151 H, Calcium 8.5 03/26/23 06:31: POC Glucose 159 H Microbiology: Microbiology 03/21/23 21:48 Sputum, Expectorated/Coughed Gram Stain - Final 03/21/23 21:48 Sputum, Expectorated/Coughed Respiratory Culture - Preliminary Pseudomonas aeruginosa 03/21/23 22:45 Mucosa - Nasopharyngeal Respiratory Panel (PCR) - Final 03/21/23 22:35 Urine, Clean Catch Streptococcus pneumoniae Antigen (M - Final 03/21/23 22:35 Urine, Clean Catch Legionella Antigen - Final 03/21/23 17:25 Nasal Secretion SARS-CoV-2 Antigen (Rapid) - Final D/C Instructions Discharge Diet: Low fat / Low cholesterol Call your doctor if you observe: Fever of 101 or Higher, Shortness of breath, Dizziness, Fainting spells, Swelling in the ankles, Chest pain and Increased palpitations (irregular heartbeat) Meaningful Use Info Meaningful Use Diagnoses (Choose all that apply): None applicable Discharge Plan Admission Admit Date/Time: 03/21/23 20:32 Attending Provider: Boris Bojorquez Primary Care Provider: Jayme Yang Consulting Providers: Pedro Ferreira Discharge Orders/Prescriptions Prescriptions: New amlodipine 10 mg Tablet 10 mg PO DAILY 30 Days Qty: 30 0RF ciprofloxacin HCl [Cipro] 500 mg tablet 500 mg PO BID Qty: 10 0RF Continued duloxetine [Cymbalta] 60 mg capsule,delayed release(DR/EC) 60 mg PO DAILY gabapentin 600 mg tablet 300 mg PO BID isosorbide mononitrate 60 mg tablet extended release 24 hr 60 mg PO BID furosemide 20 mg tablet 20 mg PO DAILY PRN (Reason: fluid) glimepiride 2 MG tablet 2 mg PO QHS Label Comments: Centrum Silver Men 1 EACH tablet 1 ea PO DAILY buspirone 7.5 mg tablet 7.5 mg PO BID calcium carbonate-vitamin D3 600 mg-5 mcg (200 unit) Tablet 1 tab PO DAILY latanoprost 0.005 % Drops 1 drp LEFT EYE QPM carvedilol 25 mg tablet 25 mg PO BID losartan 100 mg tablet 100 mg PO DAILY loratadine 10 mg Tablet 10 mg PO DAILY esomeprazole magnesium [Nexium] 20 mg Capsule,Delayed Release(Dr/Ec) 20 mg PO DAILY cholecalciferol (vitamin D3) 25 mcg (1,000 unit) Capsule 25 mcg PO DAILY amiodarone 200 mg tablet 100 mg PO DAILY doxazosin 4 mg tablet 4 mg PO BID omega-3 fatty acids 1,000 mg Capsule 1,000 mg PO BID oxybutynin chloride 10 mg tablet extended release 24hr 10 mg PO QODAY timolol maleate 0.5 % drops 1 drp LEFT EYE DAILY hydralazine 100 mg tablet 100 mg PO TID tramadol 50 mg tablet 50 mg PO TID PRN PRN (Reason: Pain) Label Comments: TAKE 1 TABLET BY MOUTH THREE TIMES DAILY NEEDED FOR 30 DAYS infliximab [Remicade] 100 mg recon soln 100 mg IV Q7D Label Comments: INFUSE 10MG/KG IV EVERY 7 WEEKS rosuvastatin 20 mg tablet 20 mg PO DAILY omega-3 fatty acids-vitamin E 1,000 mg Capsule PO potassium chloride 10 mEq tablet,ER particles/crystals 10 meq PO DAILY PRN (Reason: supplement) Qty: 90 3RF apixaban 5 mg tablet 5 mg PO BID Qty: 180 3RF Discontinued prednisone 20 mg tablet 40 mg PO BREAKFAST amlodipine 2.5 mg tablet 2.5 mg PO DAILY Qty: 90 3RF Referrals / Follow Up: Jayme Yang MD [Primary Care Provider] - 04/03/23 8:50 am Disposition Disposition (needs filled in before D/C Order can be placed): Home, Self Care Charges/Coding Visit Charges Inpatient E&M: 12860 Disch Hosp >30min
[2023-03-26 12:09] LABS: Bedside Glucose 185 mg/dL (74-106)
== END 2023-03-26 15:15 | disposition home or self-care (01) | DRG 179 ==
LOC: ED 20:21 → MS3 21:33
PROVIDERS: Admitting Provider Hospitalist; Emergency Provider Emergency Medicine; PCP Family Medicine; Visit Provider Family Medicine
DX: J15.1 Pneumonia due to Pseudomonas (principal); E11.21 Type 2 diabetes mellitus with diabetic nephropathy; E11.22 Type 2 diabetes mellitus with diabetic chronic kidney disease; I48.0 Paroxysmal atrial fibrillation; Z79.4 Long term (current) use of insulin; N18.32 Chronic kidney disease, stage 3b; E11.65 Type 2 diabetes mellitus with hyperglycemia; E78.5 Hyperlipidemia, unspecified; I25.10 Atherosclerotic heart disease of native coronary artery without angina pectoris; K21.9 Gastro-esophageal reflux disease without esophagitis; G47.33 Obstructive sleep apnea (adult) (pediatric); I12.9 Hypertensive chronic kidney disease with stage 1 through stage 4 chronic kidney disease, or unspecified chronic kidney disease; H40.9 Unspecified glaucoma; Z79.01 Long term (current) use of anticoagulants; Z79.82 Long term (current) use of aspirin; Z79.84 Long term (current) use of oral hypoglycemic drugs; Z79.899 Other long term (current) drug therapy; Z86.16 Personal history of COVID-19; Z87.891 Personal history of nicotine dependence
CPT/HCPCS: 36415; 71045; 80048; 80202; 82962; 83880; 84484; 85025; 87070; 87077; 87186; 87205; 87449; 87633; 87641; 87811; 93005; 94640; 94668; 94760; 94762; 99252; 99284; J7040; J7050; A4216; G0463; J1940

== ENCOUNTER → 2023-04-01 | Outpatient (CLI) | payer MEDICARE, SELFPAY ==
[2023-04-01 15:12] LABS: Absolute Lymphocyte Count 1.48 X10^3/uL (0.83-4.51); Absolute Neutrophil Count 4.8 X10^3/uL (2.0-7.7); Basophil# 0.01 X10^3/uL; Basophil% 0.1 % (0-1); Eosinophil# 0.17 X10^3/uL; Eosinophils% 2.4 % (0-5); Hematocrit 40.5 % (40-54); Lymphocyte # 1.48 X10^3/ul (0.83-4.51); Lymphocyte % 20.8 % (19-41); Mean Corp Hgb Conc 32.1 g/dL (32-36); Mean Corpuscular Hgb 30.4 pg (27.0-32.0); Mean Corpuscular Volume 94.8 fL (80-94); Mean Platelet Vol. 11.5 fl (6.2-12.0); Monocyte# 0.67 X10^3/uL; Monocyte% 9.4 % (0-10); NRBC Flagged by Analyzer 0 % (0-5); Neutrophil # 4.75 X10^3/uL (2.7-7.7); Neutrophil % 66.9 % (47-70); Platelet Count 150 K/mm3 (150-450); RBC Distribution Width SD 55.5 fl (35.1-43.9); Red Blood Count 4.27 M/mm3 (4.6-6.2); White Blood Count 7.1 K/mm3 (4.4-11.0)
[2023-04-01 15:53] LABS: ALB/GLOB Ratio 0.8 RATIO (0.9-2.4); AST(SGOT) 23 U/L (15-37); Alanine Aminotransfer ALT/SGPT 69 U/L (16-61); Albumin, Serum 2.9 g/dL (3.2-5.0); Alkaline Phosphatase 48 U/L (45-117); Anion Gap 5 (5-15); BUN 26 mg/dL (7-18); BUN/Creat Ratio 17.7 RATIO (10-20); Calcium,Total 8.5 mg/dL (8.5-10.1); Chloride 109 mmol/L (98-107); Creatinine, Serum 1.47 mg/dL (0.70-1.30); EST Glomerular Filtration Rate 49 mL/min (>60); Est Glom Filt Rate - Afr Amer 60 mL/min (>60); Globulin 3.6 g/dL (2.2-4.2); Glucose 181 mg/dL (74-106); Potassium 3.7 mmol/L (3.5-5.1); Protein, Total 6.5 g/dL (6.4-8.2); Sodium Level 140 mmol/L (136-145)
== END | disposition home or self-care (01) ==
LOC: MTLAB 11:43
PROVIDERS: PCP Family Medicine; Referring Provider Internal Medicine Rheumatology; Visit Provider Internal Medicine Rheumatology
DX: M06.041 Rheumatoid arthritis without rheumatoid factor, right hand (principal); M15.9 Polyosteoarthritis, unspecified; Z79.899 Other long term (current) drug therapy
CPT/HCPCS: 36415; 80053; 84550; 85025

== ENCOUNTER → 2023-04-16 | Outpatient (CLI) | payer MEDICARE, SELFPAY | END | disposition home or self-care (01) | LOC: LAB 10:57 | PROVIDERS: PCP Family Medicine; Referring Provider Urology; Visit Provider Urology | DX: C61 Malignant neoplasm of prostate (principal) | CPT/HCPCS: 36415; 84153 ==

== ENCOUNTER → 2023-05-13 | Outpatient (CLI) | payer MEDICARE, SELFPAY ==
--- NOTE | 2023-05-13 | IMM_PTH ---
PATIENT: MEGAN HOLLOWAY LOC: [facility] U#:[id number] AGE/SX: 77/M ROOM: RE05/13/[address]: Dr. Surinder Larson MD : 1945 BED: DIS: 05/13/2023 SPEC #: [id number] RECD: 05/15/23 10:48 STATUS: KATTY REPhilippe #: [id number] CHRIS: 05/13/23 00:[address]: Surinder Larson DEPT: IMMUNOHISTOCHEMISTRY RECD BY: Fariba Jacinto ENTERED: 05/15/23 10:49 SP TYPE: IMMUNO OTHR DR: Dr. Jayme Yang MD Tissues: C - PROSTATE RIGHT E - PROSTATE LEFT F - PROSTATE LEFT Procedures: 34BE12 (add) P40 (add) 34BE12 (initial) PHYSICIAN & INSTITUTION [place] [address] SPECIMEN INFORMATION: Tissue Source: C - Right prostate, base, E - Left prostate, mid, F - Left prostate, base Clinical Info: Elevated PSA Specimen Number: [id number] C, E & F CPT code: 32364, 30845 x5 METHODOLOGY: Deparaffinized sections of prefer/formalin-fixed tissue or PAP/DQ stained slides are incubated with monoclonal/polyclonal antibodies/oligonucleotide probes. Localization is made via biotin free immunoperoxidase method. Appropriate controls are performed and reacted as expected. Results on target cell population are indicated in the following table: RESULTS: ANTIBODY / CLONE RESULT Block C P40 (BC28) positive 34BE12 (34BE12) positive Block E P40 (BC28) negative 34BE12 (34BE12) negative Block F P40 (BC28) negative 34BE12 (34BE12) negative These tests were developed and their performance characteristics determined by [facility]. They may not have been cleared or approved by the U.S. Food and Drug Administration. The FDA has determined that such clearance or approval is not necessary. The above immunohistochemical/dualISH markers are ordered and reviewed by the Pathologist. INTERPRETATION: C. Right prostate, base, core biopsy: Benign prostatic tissue. E. Left prostate, mid, core biopsy: Adenocarcinoma. F. Left prostate, base, core biopsy: Adenocarcinoma. AM:yamini 05/16/2023
--- NOTE | 2023-05-13 15:56 | PROSBIL_PTH ---
PATIENT: MEGAN HOLLOWAY LOC: [facility] U#:[id number] AGE/SX: 77/M ROOM: RE05/13/[address]: Dr. Surinder Larson MD : 1945 BED: DIS: 05/13/2023 SPEC #: [id number] RECD: 05/13/23 15:56 STATUS: KATTY BRYAN #: [id number] CHRIS: 05/13/23 15:[address]: Surinder Larson DEPT: SURGICAL PATHOLOGY RECD BY: Sabina Acosta ENTERED: 05/14/23 07:14 SP TYPE: PROST BX OT DR: Dr. Jayme Yang MD Tissues: A - PROSTATE RIGHT B - PROSTATE RIGHT C - PROSTATE RIGHT D - PROSTATE LEFT E - PROSTATE LEFT F - PROSTATE LEFT Procedures: PROSTATE BX HEADER OPERATION: Prostate biopsy PRE-OP DIAGNOSIS: Elevated PSA TISSUE SUBMITTED: A - Right apex, B - Right mid, C - Right base, D - Left apex, E - Left mid, F - Left base MICROSCOPIC DIAGNOSIS A. Right prostate, apex, core biopsy: Focal glandular atrophy. B. Right prostate, mid, core biopsy: Focal high-grade prostatic intraepithelial neoplasia (HGPIN). C. Right prostate, base, core biopsy: Focal high-grade prostatic intraepithelial neoplasia (HGPIN). See comment. D. Left prostate, apex, core biopsy: Adenocarcinoma. Braddock grade: 7 (3+4) Cores involved: 1 out of 1 core Tissue involved: 85% Greatest tumor length: 10.5 millimeters Perineural invasion: Present E. Left prostate, mid, core biopsy: Adenocarcinoma. 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 F. Left prostate, base, core biopsy: Adenocarcinoma. Liza grade: 6 (3+3) Cores involved: 1 out of 1 core Tissue involved: 2% Greatest tumor length: 1 millimeter See comment. AM:yamini 05/15/2023 COMMENT C, E & F - Immunohistochemistry ([id number]) supports the above diagnosis. Reference is made to the patient's previous prostate, TUR from 2020 ([id number]) in which prostatic adenocarcinoma was identified. MICROSCOPIC DESCRIPTION Slides are reviewed. GROSS DESCRIPTION A - Received is one container designated prostate, right apex. The specimen consists of one elongated fragment of light sales-white soft tissue measuring 1.5 cm in length and 0.1 cm in diameter. The specimen is totally submitted in one cassette. B - Received is one container designated prostate, right mid. The specimen consists of one elongated fragment of light asles-white soft tissue measuring 1.5 cm in length and 0.1 cm in diameter. The specimen is totally submitted in one cassette. C - Received is one container designated prostate, right base. The specimen consists of one elongated fragment of light sales-white soft tissue measuring 1.0 cm in length and 0.1 cm in diameter. The specimen is totally submitted in one cassette. D - Received is one container designated prostate, left apex. The specimen consists of one elongated fragment of light sales-white soft tissue measuring 2.0 cm in length and 0.1 cm in diameter. The specimen is totally submitted in one cassette. E - Received is one container designated prostate, left mid. The specimen consists of one elongated fragment of light sales-white soft tissue measuring 2.0 cm in length and 0.1 cm in diameter. The specimen is totally submitted in one cassette. F - Received is one container designated prostate, left base. The specimen consists of one elongated fragment of light sales-white soft tissue measuring 1.7 cm in length and 0.1 cm in diameter. The specimen is totally submitted in one cassette. / AM:yamini 05/14/2023 TC:0 [facility]: [id number]
== END | disposition home or self-care (01) ==
LOC: LABSPEC 15:59
PROVIDERS: PCP Family Medicine; Referring Provider Urology; Visit Provider Urology
DX: C61 Malignant neoplasm of prostate (principal); R97.20 Elevated prostate specific antigen [PSA]
CPT/HCPCS: 88305; 88341; 88342; G0416

== ENCOUNTER → 2023-05-30 | Outpatient (CLI) | payer MEDICARE, SELFPAY ==
--- NOTE | 2023-05-30 07:58 | CT_ITS ---
STUDY: CT ABDOMEN AND PELVIS WITH CONTRAST REASON FOR EXAM: Male, 77 years old. PROSTATE CA RADIATION DOSAGE (If Supplied By Facility): CTDIvol = ( 15.93 ) mGy, DLP = ( 1126.06 ) mGycm TECHNIQUE: Transaxial images were obtained from the dome of the diaphragm to the symphysis pubis without oral contrast. IV 100mL Isovue-300 was administered. Sagittal and coronal images were reconstructed. Individualized dose optimization techniques were used for this CT. COMPARISON: Comparison is made with prior study dated March 24, 2020. FINDINGS: Stable mild degree of increased linear markings at the lung bases suggestive of a scarring. There is calcification of the coronary arteries. Normal liver. Normal gallbladder and extrahepatic biliary system. Normal spleen. Normal pancreas. There is a small, circumscribed, smooth, low attenuation left adrenal mass, consistent with an adrenal adenoma. This measures 2.4 cm x 2.4 cm. Normal right adrenal gland. Stable 2 cm cyst in the lower lateral aspect of the right kidney. Punctate calcification upper pole calyx of the left kidney. Normal visualized stomach. Normal small intestine. There are scattered colonic diverticula consistent with diverticulosis. The appendix is visualized and appears normal. There is diffuse atherosclerotic calcification of the abdominal aorta and its major visceral branches, without a demonstrated aneurysm. Normal inferior vena cava. Normal retroperitoneum. Bladder wall thickening although the bladder is not completely distended at this time. Normal abdominal wall. There are diffuse degenerative changes of the visualized lumbar spine. The patient is status post laminectomy and interpedicular screw fixation at the L3-L4 and L2-L3 levels. CT/Abdomen/Pelvis W IV Cont ONLY IMPRESSION: Stable benign-appearing nodule in the left adrenal gland. Stable right renal cyst. Sigmoid diverticulosis. Electronically Signed: Shad Macias MD at 13:27 EDT ,
[2023-05-30 08:18] LABS: CREATININE FINGERSTICK 1.3 mg/dL (0.70-1.30)
== END | disposition home or self-care (01) ==
LOC: CT 07:52
PROVIDERS: PCP Family Medicine; Referring Provider Urology; Visit Provider Urology
DX: C61 Malignant neoplasm of prostate (principal)
CPT/HCPCS: 74177; Q9967

== ENCOUNTER → 2023-06-04 | Outpatient (CLI) | payer MEDICARE, SELFPAY ==
--- NOTE | 2023-06-04 07:51 | NM_ITS ---
CLINICAL: 77-year-old male with history of primary prostate carcinoma. WHOLE BODY 99m Tc MDP RADIONUCLIDE BONE SCINTIGRAPHY COMPARISON: None available FINDINGS: Following the intravenous administration of 26.6 mCi of 99m Tc MDP, whole body bone images reveal: 1. Increased radiopharmaceutical concentration is multifocally apparent in the cervical, thoracic and lumbar spine, the sternoclavicular, acromioclavicular and glenohumeral compartments of both shoulders, the bilateral hands, the left mid and forefoot. 2. Facilitated uptake is noted in the left posterior eighth-ninth and 11th ribs linear in presentation. 3. The remaining skeletal structures are scintigraphically unremarkable with normal-appearing renal images and urinary bladder activity identified. Presumably asymptomatic bilateral knee arthroplasties are demonstrated with increased uptake in the femoral and tibial components most consistent with normal postsurgical change. NM/Bone Scan Whole Body IMPRESSION: 1. The increase in tracer defined in the left posterior ribs is most consistent with trauma-fracture. Plain film radiography correlation may be of benefit. 2. Degenerative arthritis appears expressed in the cervical, thoracic and lumbar spine, the right-left hands, the shoulders bilaterally the left mid and left forefoot. 3. There is no definitive scintigraphic evidence of diffuse skeletal metastatic disease on the current examination. Electronically Signed: Gaston Hickman DO at 23:23 EDT ,
== END | disposition home or self-care (01) ==
PROVIDERS: PCP Family Medicine; Referring Provider Urology; Visit Provider Urology
DX: Z12.5 Encounter for screening for malignant neoplasm of prostate (principal)
CPT/HCPCS: 78306; A9503

== ENCOUNTER 2023-08-07 08:17 | Day surgery (SDC) | payer MEDICARE, SELFPAY ==
[2023-08-07] VITALS (9 sets, daily range): BP systolic 113–167; BP diastolic 67–87; PULSE 57–70; RESP 14–16; TEMP 36.3–36.6; O2SAT 90–96; BMI 35.2
[2023-08-07] MEDS: Lactated Ringers 1,000 ML 15 ML IV (09:08)
[2023-08-07 09:21] LABS: Bedside Glucose 115 mg/dL (74-106)
--- NOTE | 2023-08-07 10:18 | PCM.HP.STD ---
HPI - General General Date of Service: 08/07/23 Chief Complaint: Prostate cancer HPI Narrative MEGAN HOLLOWAY, is a 78 M who presents for placement of gold markers and spacer gel COUNT INCLUDES THE [facility] Medical History (Updated 07/30/23 @ 08:49 by Bailey Choi) Abnormal stress test Acute bronchitis with bronchospasm Acute respiratory insufficiency Ambulates with cane Anxiety Aortic stenosis Arthritis Asthma Asymptomatic hypertensive urgency Atherosclerotic heart disease of [place] coronary artery without angina pectoris Atrial fibrillation with RVR Back pain Bronchitis CAD in [place] artery Cancer Cardiology follow-up encounter Chronic anticoagulation Closed head injury Colitis Concussion Covid-19 COVID-19 virus infection CPAP (continuous positive airway pressure) dependence Dementia Depression Diabetes Diabetes Diverticula of colon DM2 (diabetes mellitus, type 2) Essential hypertension Excessive bleeding Former smoker Gastric reflux Heart failure High cholesterol History of atrial fibrillation History of echocardiogram History of edema History of renal disease History of steroid therapy History of stress test HTN (hypertension) Hyperlipidemia Hypertensive urgency Inflammatory bowel disease Injury of head and neck Intractable pain Kidney stones Loss of consciousness Nonrheumatic aortic (valve) stenosis NSVT (nonsustained ventricular tachycardia) SUPA (obstructive sleep apnea) Paroxysmal atrial fibrillation Prostate cancer Prostate disease Pulmonary hypertension Renal colic on left side Rheumatoid aortitis Rheumatoid arthritis Rhinovirus Sepsis Severe acute respiratory syndrome coronavirus 2 (SARS-CoV-2) infection ruled out Severe sepsis Sleep apnea SOB (shortness of breath) Ureterolithiasis Wears dentures Wears glasses Wears hearing aid Home Medications glimepiride 2 mg tablet 2 mg PO QHS diabetes 01/22/18 [History Last Taken 03/21/23] eomvbtyl-di-jwgwl 300 mcg-K 60 mcg-lycop 600 mcg-lutein 300 mcg tablet (Centrum Silver Men) 1 ea PO DAILY supplement 09/17/18 [History Last Taken 03/21/23] duloxetine 60 mg capsule,delayed release (Cymbalta) 60 mg PO DAILY depression 06/02/19 [History Last Taken 03/21/23] buspirone 7.5 mg tablet 7.5 mg PO BID depression/anxiety 04/12/21 [History Last Taken 03/21/23] calcium carbonate 600 mg-vitamin D3 5 mcg (200 unit) tablet 1 tab PO DAILY supplement 12/21/21 [History Last Taken 03/21/23] latanoprost 0.005 % eye drops 1 drp LEFT EYE QPM eye health 12/22/21 [History Last Taken 03/20/23] gabapentin 600 mg tablet 300 mg PO BID neuropathy 01/26/22 [History Last Taken 03/21/23] amiodarone 200 mg tablet 100 mg PO DAILY AFIB 10/02/22 [History Last Taken 08/07/23] carvedilol 25 mg tablet 25 mg PO BID HEART 10/02/22 [History Last Taken 08/07/23] cholecalciferol (vitamin D3) 25 mcg (1,000 unit) capsule 25 mcg PO DAILY SUPPLEMENT 10/02/22 [History Last Taken 10/04/22] doxazosin 4 mg tablet 4 mg PO BID BLOOD PRESSURE 10/02/22 [History Last Taken 03/21/23] esomeprazole magnesium 20 mg capsule,delayed release (Nexium) 20 mg PO DAILY GERD 10/02/22 [History Last Taken 08/07/23] loratadine 10 mg tablet 10 mg PO DAILY ALLERGIES 10/02/22 [History Last Taken 03/21/23] losartan 100 mg tablet 100 mg PO DAILY BLOOD PRESSURE 10/02/22 [History Last Taken 08/07/23] oxybutynin chloride 10 mg tablet,extended release 24 hr 10 mg PO QODAY bladder 10/04/22 [History Last Taken 03/21/23] timolol maleate 0.5 % eye drops 1 drp LEFT EYE DAILY EYE HEALTH 10/04/22 [History Last Taken 03/20/23] potassium chloride 10 mEq tablet,extended release(part/cryst) 10 meq PO DAILY PRN supplement #90 tabs 11/26/22 [Rx Last Taken 03/21/23] apixaban 5 mg tablet 5 mg PO BID afib #180 tabs 12/03/22 [Rx Last Taken 03/21/23] rosuvastatin 20 mg tablet 20 mg PO DAILY cholesterol 03/21/23 [History Last Taken 03/21/23] tramadol 50 mg tablet 50 mg PO TID PRN PRN Pain 03/21/23 [History Last Taken Unknown] omega-3 fatty acids-vitamin E 1,000 mg capsule 1 cap PO BID Check with primary doctor 03/22/23 [History Last Taken 03/21/23] fluticasone furoate 200 mcg-vilanterol 25 mcg/dose inhalation powder (Breo Ellipta) 1 inh inhalation QDAY #60 ea 04/04/23 [Rx Last Taken Unknown] amlodipine 10 mg tablet 5 mg (1/2 x 10 mg) PO DAILY #90 tabs 05/08/23 [Rx Last Taken 08/07/23] ipratropium bromide 21 mcg (0.03 %) nasal spray 2 spray intranasal BID 05/21/23 [History Last Taken Unknown] triamcinolone acetonide 55 mcg nasal spray aerosol (Nasacort) 2 spray intranasal BID 05/21/23 [History Last Taken Unknown] infliximab 100 mg intravenous solution (Remicade) 100 mg IV .Q7W crohns 05/24/23 [History Last Taken Unknown] hydralazine 100 mg tablet 100 mg PO TID BLOOD PRESSURE #270 tabs 06/14/23 [Rx Last Taken Unknown] isosorbide mononitrate 60 mg tablet,extended release 24 hr 60 mg PO BID BLOOD PRESSURE #90 tabs 07/25/23 [Rx Last Taken 08/07/23] montelukast 10 mg tablet 10 mg PO QPM #30 tabs 07/25/23 [Rx Last Taken Unknown] Allergy/AdvReac Type Severity Reaction Status Date / Time aspirin Allergy Severe Mouth Verified 08/07/23 08:54 swelling donepezil [From Aricept] AdvReac Severe Swelling Verified 08/07/23 08:54 minoxidil AdvReac Severe swelling Verified 08/07/23 08:54 morphine AdvReac Severe UNABLE TO Verified 08/07/23 08:54 URINATE Family History (Reviewed 05/24/23 @ 10:29 by Dyan Chvaez [employer] SCI[employer]ES INSTRUCTOR, [employer] SCIENCES INSTRUCTOR-C) Mother Heart disease Diabetes Father Heart disease Lung disease Brother Heart disease Lung disease Cancer prostate, pancreatic Sister Diabetes Cancer uterine Surgical History (Updated 07/30/23 @ 08:37 by Bailey Choi) Cervical vertebral fusion History of back surgery History of bilateral knee replacement History of cardiac catheterization History of left heart catheterization (LHC) (~12/22/21) History of prostate biopsy History of removal of cyst Hx of colectomy Hx of cystoscopy Hx of surgical procedure Social History Smoking Status: Former smoker how long ago did patient quit smokin, 2ppd second hand exposure: Yes alcohol intake: never substance use type: does not use caffeine: Yes Type: coffee Number of servings: 2 Vital Signs Vital Signs Vital Signs: 11/08/23 08:56 08/07/23 08:56 Temperature 97.9 F Temperature Source Temporal Pulse Rate 70 Respiratory Rate 16 Respiratory Pattern Normal Blood Pressure 167/87 H Blood Pressure Mean 113 Blood Pressure Source Monitor Blood Pressure Position Semi-Fowlers Blood Pressure Location Left Arm Pulse Ox 93 Oxygen Delivery Method Room Air Weight Weight: 99 kg Body Mass Index (BMI) 35.2 Results Lab / Micro Data Labs: Laboratory Results - last 24 hr 08/07/23 08:52: POC Glucose 115 H
--- NOTE | 2023-08-07 10:19 | DCINST_ITS ---
Discharge Instructions Diet Discharge Diet: No restrictions Activity Discharge Activity: Return to Normal Activity and May Not Drive (while taking narcotic pain medications.) Dressing / Incision Call your doctor if you observe: Fever of 101 or Higher Follow Up Care Please Follow Up With: Surinder Larson MD When: Call [phone] for an appointment Test Results: Test results from this visit will be discussed in further detail at your follow- up appointment, if applicable. Discharge Plan Admission Attending Provider: Surinder Larson Primary Care Provider: Jayme Yang Discharge Orders/Prescriptions Prescriptions: No Action duloxetine [Cymbalta] 60 mg capsule,delayed release(DR/EC) 60 mg PO DAILY gabapentin 600 mg tablet 300 mg PO BID fluticasone furoate-vilanterol [Breo Ellipta] 200-25 mcg/dose blister with device 1 inh inhalation QDAY Qty: 60 6RF Rx Instructions: after inhalation, rinse mouth with water and spit out; do not swallow triamcinolone acetonide [Nasacort] 55 mcg aerosol,spray 2 spray intranasal BID Rx Instructions: administer into each nostril ipratropium bromide 21 mcg (0.03 %) spray,non-aerosol 2 spray intranasal BID Rx Instructions: administer into each nostril glimepiride 2 MG tablet 2 mg PO QHS Patient Comments: Centrum Silver Men 1 EACH tablet 1 ea PO DAILY buspirone 7.5 mg tablet 7.5 mg PO BID calcium carbonate-vitamin D3 600 mg-5 mcg (200 unit) Tablet 1 tab PO DAILY latanoprost 0.005 % Drops 1 drp LEFT EYE QPM carvedilol 25 mg tablet 25 mg PO BID losartan 100 mg tablet 100 mg PO DAILY loratadine 10 mg Tablet 10 mg PO DAILY esomeprazole magnesium [Nexium] 20 mg Capsule,Delayed Release(Dr/Ec) 20 mg PO DAILY cholecalciferol (vitamin D3) 25 mcg (1,000 unit) Capsule 25 mcg PO DAILY amiodarone 200 mg tablet 100 mg PO DAILY doxazosin 4 mg tablet 4 mg PO BID oxybutynin chloride 10 mg tablet extended release 24hr 10 mg PO QODAY timolol maleate 0.5 % drops 1 drp LEFT EYE DAILY tramadol 50 mg tablet 50 mg PO TID PRN PRN (Reason: Pain) Patient Comments: TAKE 1 TABLET BY MOUTH THREE TIMES DAILY NEEDED FOR 30 DAYS rosuvastatin 20 mg tablet 20 mg PO DAILY omega-3 fatty acids-vitamin E 1,000 mg Capsule 1 cap PO BID infliximab [Remicade] 100 mg recon soln 100 mg IV .Q7W Patient Comments: INFUSE 10MG/KG IV EVERY 7 WEEKS potassium chloride 10 mEq tablet,ER particles/crystals 10 meq PO DAILY PRN (Reason: supplement) Qty: 90 3RF apixaban 5 mg tablet 5 mg PO BID Qty: 180 3RF Patient Comments: 11/4 PM DOSE WILL BE LAST DOSE amlodipine 10 mg tablet 5 mg PO DAILY Qty: 90 3RF hydralazine 100 mg tablet 100 mg PO TID Qty: 270 3RF montelukast 10 mg tablet 10 mg PO QPM Qty: 30 3RF isosorbide mononitrate 60 mg tablet extended release 24 hr 60 mg PO BID Qty: 90 3RF Referrals / Follow Up: Jayme Yang MD [Primary Care Provider] - Disposition Disposition (needs filled in before D/C Order can be placed): Home, Self Care
[2023-08-07] MEDS: Cefazolin 2 GM in 0.9% Normal Saline (100mL Bag) 100 ML IV (10:28)
--- NOTE | 2023-08-07 10:52 | PCM.OPRPT ---
Report of Operation Date of Procedure: 08/07/23 Pre-Operative Diagnosis: Prostate cancer Post-Operative Diagnosis: The same Surgery/Procedure Performed:: Placement of gold markers and spacer gel Description of Surgical Findings:: In the preoperative area I reviewed with the patient how the procedure is done we talked about the risk of the procedure including the risk of infection, bleeding, migration of the spacer gel, the patient is planning to have radiation to the prostate he understands that the spacer gel has demonstrated benefit in reducing the risk of toxicity from the ration radiation to the rectum but there is no guarantees that this spacer gel will prevent any serious complications or toxicity to the rectum or bowels. After reviewing this with the patient and his family organ to proceed with placement of a spacer gel matrix. The penis and testicles were prepped and draped in usual sterile fashion, ultrasound probe was placed into the rectum and biplanar ultrasound was performed on the prostate. Identified the base mid and apex of the prostate identified the transition zone prostate. Then using a needle the first thread marker was placed into the right base of the prostate, the second thread marker was placed in the left base of the prostate, and the third core marker was placed in the right apex of the prostate after all 3 markers were placed the placement of the markers were confirmed by ultrasonography. The genitals and perineum were prepped and draped in usual sterile fashion. I then introduced a biplanar ultrasound probe into the rectum and performed ultrasonography and identified the Denonvilliers' fascia the prostate mid base and apex and seminal vesicles. The spacer gel mix was then prepared on the back table per manufactures instruction. Under ultrasound guidance in the midline perineum a bevel needle down we advanced through the perineum below the prostate into the space of Denonvilliers' fascia. This space which could be identified by ultrasound with a bright white layer between the prostate and the rectum. I then injected a puff of normal saline to identify the space further. After I confirmed that the needle was in the correct space in the mid prostate and the space of Denonvilliers' fascia between the rectum and the prostate. Then over the course of 15 seconds the gel matrix was injected slowly there was nice separation between the prostate and the rectum at the gel matrix was injected. The position of the gel matrix was confirmed by ultrasound. Then the injection needle was removed intact. Patient's perineum was cleaned patient was taken out of stirrups and then taken back to the PACU in good condition.
[2023-08-07 11:45] LABS: Bedside Glucose 110 mg/dL (74-106)
== END 2023-08-07 12:38 | disposition home or self-care (01) ==
LOC: SDC 08:18 → AC 08:22
PROVIDERS: PCP Family Medicine; Referring Provider Urology; Visit Provider Urology
PROC: (CPT 55874; principal; 2023-08-07 10:10)
DX: C61 Malignant neoplasm of prostate (principal); F03.90 Unspecified dementia, unspecified severity, without behavioral disturbance, psychotic disturbance, mood disturbance, and anxiety; I50.9 Heart failure, unspecified; I11.0 Hypertensive heart disease with heart failure; I48.91 Unspecified atrial fibrillation; E11.9 Type 2 diabetes mellitus without complications; E78.00 Pure hypercholesterolemia, unspecified; I25.10 Atherosclerotic heart disease of native coronary artery without angina pectoris; G47.33 Obstructive sleep apnea (adult) (pediatric); F41.9 Anxiety disorder, unspecified; F32.A Depression, unspecified; Z87.891 Personal history of nicotine dependence; Z86.16 Personal history of COVID-19; Z79.01 Long term (current) use of anticoagulants; Z79.84 Long term (current) use of oral hypoglycemic drugs; Z79.899 Other long term (current) drug therapy
CPT/HCPCS: 55876; 55874; 00400; 82962; J7120; J2405

== ENCOUNTER → 2023-08-29 | Outpatient (CLI) | payer MEDICARE, SELFPAY ==
--- NOTE | 2023-08-29 09:04 | MRI_ITS ---
MR Pelvis WO/W Contrast 08/29/2023 9:30 AM COMPARISON: None CLINICAL HISTORY: 78 yo man with prostate cancer. TECHNIQUE: Axial T1-weighted and high-resolution axial T2-weighted MR images of the pelvis were obtained. Images were acquired for planning of radiation therapy. 20 cc of IV Clariscan was also used. DISCUSSION: MR imaging scan done for planning of radiation therapy of prostate cancer. Heterogeneous appearance of the gland is at least in part due to the known prostate cancer, as well as being consistent with benign prostatic hyperplasia. There is T1 hyperintense hemorrhage seen within the right seminal vesicle and right lateral transitional zone and peripheral zone at mid gland which limits this evaluation. There is moderately T2 hypointense tumor with restricted diffusion involving mostly the right transitional zone from base to mid gland and left transitional zone from mid gland to apex. There is likely involvement of the right seminal vesicle. The tumor abuts the posterior wall the bladder, however does not appear to invade. No suspicious lymphadenopathy or bone lesions. No definite microcapsular extension. T2 hyperintense OAR hydrogel is seen between the prostate/seminal vesicles and rectum. Incidental increased enhancement surrounding the left adductor tendons near their insertion on the inferior pubic ramus. MRI/Pelvis W/WO Contrast IMPRESSION: Likely tumor involving the right TZ from base to mid gland and left TZ from mid gland to apex with possible right seminal vesicle involvement, however, hemorrhage limits this evaluation. -No bladder wall invasion -No osseous metastases -No suspicious lymphadenopathy -No definite macro capsular extension Incidental increased enhancement surrounding the left adductor tendons near their insertion on the inferior pubic ramus. Correlate with history of injury. Electronically Signed: Ottoniel Erazo MD at 0:23 EST ,
[2023-08-29 09:40] LABS: CREATININE FINGERSTICK < 1.0 mg/dL (0.70-1.30); EGFR FINGERSTICK > 60.0000 mL/min (>60)
== END | disposition home or self-care (01) ==
PROVIDERS: PCP Family Medicine; Referring Provider Student in an Organized Health Care Education/Training Program; Visit Provider Student in an Organized Health Care Education/Training Program
DX: C61 Malignant neoplasm of prostate (principal)
CPT/HCPCS: 72197; 77014; 77290; A9575

== ENCOUNTER 2023-09-03 23:13 | Inpatient (IN) | payer MEDICARE, SELFPAY ==
[2023-09-03 23:18] VITALS: BP 179/95; PULSE 68; RESP 20; TEMP 36.6; O2SAT 93; BMI 35.9
[2023-09-03 23:36] VITALS: O2SAT 91
--- NOTE | 2023-09-03 23:50 | RAD_ITS ---
INDICATION: dyspnea EXAMINATION/TECHNIQUE: X-RAY - XR Chest 1 View COMPARISON: 03/21/2023. FINDINGS: LINES/DEVICES: None. LUNGS: No consolidation or evidence of an effusion. No evidence of edema or a pneumothorax. MEDIASTINUM AND CARDIOVASCULAR STRUCTURES: Cardiac silhouette is normal in size and contour. Mediastinum is unremarkable. BONES AND SOFT TISSUES: No acute abnormality. RAD/Chest 1 View (Portable) IMPRESSION: No evidence of acute cardiopulmonary disease. Electronically Signed: Tejas Selby DO at 0:12 EST ,
[2023-09-04] VITALS (16 sets, daily range): BP systolic 136–204; BP diastolic 60–105; PULSE 60–88; RESP 16–23; TEMP 36.3–37.2; O2SAT 91–97; BMI 33.1
[2023-09-04 00:14] LABS: Anion Gap 7 (5-15); BUN 24 mg/dL (7-18); BUN/Creat Ratio 15.7 RATIO (10-20); Calcium,Total 8.8 mg/dL (8.5-10.1); Chloride 105 mmol/L (98-107); Creatinine, Serum 1.53 mg/dL (0.70-1.30); EST Glomerular Filtration Rate 47 mL/min (>60); Est Glom Filt Rate - Afr Amer 57 mL/min (>60); Estimated Creatinine Clearance 35.33 ml/min; Glucose 184 mg/dL (74-106); Magnesium 2.2 mg/dL (1.6-2.6); Potassium 3.7 mmol/L (3.5-5.1); Sodium Level 138 mmol/L (136-145)
[2023-09-04 00:18] LABS: Absolute Lymphocyte Count 1.35 X10^3/uL (0.83-4.51); Absolute Neutrophil Count 3.2 X10^3/uL (2.0-7.7); Basophil# 0.02 X10^3/uL; Basophil% 0.4 % (0-1); Hematocrit 39.1 % (40-54); Hemoglobin 12.9 g/dL (13.0-16.5); Lymphocyte # 1.35 X10^3/ul (0.83-4.51); Lymphocyte % 25.6 % (19-41); Mean Corpuscular Hgb 30.4 pg (27.0-32.0); Mean Platelet Vol. 11.1 fl (6.2-12.0); Monocyte# 0.63 X10^3/uL; Monocyte% 11.9 % (0-10); NRBC Flagged by Analyzer 0 % (0-5); Neutrophil # 3.19 X10^3/uL (2.7-7.7); Neutrophil % 60.4 % (47-70); Platelet Count 191 K/mm3 (150-450); RBC Distribution Width CV 14.8 % (11.6-14.6); RBC Distribution Width SD 50.4 fl (35.1-43.9); Red Blood Count 4.25 M/mm3 (4.6-6.2); White Blood Count 5.3 K/mm3 (4.4-11.0)
[2023-09-04 00:53] LABS: BNP,B-Type NATRIURETIC PEPTIDE 65.2 pg/mL (0-100)
--- NOTE | 2023-09-04 01:52 | EDS_ITS ---
HPI History of Present Illness Chief Complaint: Shortness of Breath Informant: patient Narrative Narrative: Patient is a 78-year-old male with past medical history of hypertension hyperlipidemia and prostate cancer who just recently started radiation therapy. He states his has been sick for the past week with cough and congestion. He states over the past 5 to 7 days he is also had congestion and cough and shortness of breath. He states that over the last 1 to 2 days he has been having increased generalized weakness and bouts of difficulty breathing. Secondary to this he comes into the ER for evaluation. [facility] Medical History Abnormal stress test Acute bronchitis with bronchospasm Acute respiratory insufficiency Ambulates with cane Anxiety Aortic stenosis Arthritis Asthma Asymptomatic hypertensive urgency Atherosclerotic heart disease of [place] coronary artery without angina pectoris Atrial fibrillation with RVR Back pain Bronchitis CAD in [place] artery Cancer Cardiology follow-up encounter Chronic anticoagulation Closed head injury Colitis Concussion Covid-19 COVID-19 virus infection CPAP (continuous positive airway pressure) dependence Dementia Depression Diabetes Diabetes Diverticula of colon DM2 (diabetes mellitus, type 2) Essential hypertension Excessive bleeding Former smoker Gastric reflux Heart failure High cholesterol History of atrial fibrillation History of echocardiogram History of edema History of renal disease History of steroid therapy History of stress test HTN (hypertension) Hyperlipidemia Hypertensive urgency Inflammatory bowel disease Injury of head and neck Intractable pain Kidney stones Loss of consciousness Nonrheumatic aortic (valve) stenosis NSVT (nonsustained ventricular tachycardia) SUPA (obstructive sleep apnea) Paroxysmal atrial fibrillation Prostate cancer Prostate disease Pulmonary hypertension Renal colic on left side Rheumatoid aortitis Rheumatoid arthritis Rhinovirus Sepsis Severe acute respiratory syndrome coronavirus 2 (SARS-CoV-2) infection ruled out Severe sepsis Sleep apnea SOB (shortness of breath) Ureterolithiasis Wears dentures Wears glasses Wears hearing aid Home Medications glimepiride 2 mg tablet 2 mg PO QHS diabetes 01/22/18 [History Last Taken 03/21/23] [id number] 300 mcg-K 60 mcg-lycop 600 mcg-lutein 300 mcg tablet (Centrum Silver Men) 1 ea PO DAILY supplement 09/17/18 [History Last Taken 03/21/23] duloxetine 60 mg capsule,delayed release (Cymbalta) 60 mg PO DAILY depression 06/02/19 [History Last Taken 03/21/23] buspirone 7.5 mg tablet 7.5 mg PO BID depression/anxiety 04/12/21 [History Last Taken 03/21/23] calcium carbonate 600 mg-vitamin D3 5 mcg (200 unit) tablet 1 tab PO DAILY supplement 12/21/21 [History Last Taken 03/21/23] latanoprost 0.005 % eye drops 1 drp LEFT EYE QPM eye health 12/22/21 [History Last Taken 03/20/23] gabapentin 600 mg tablet 300 mg PO BID neuropathy 01/26/22 [History Last Taken 03/21/23] carvedilol 25 mg tablet 25 mg PO BID HEART 10/02/22 [History Last Taken 08/07/23] cholecalciferol (vitamin D3) 25 mcg (1,000 unit) capsule 25 mcg PO DAILY SUPPLEMENT 10/02/22 [History Last Taken 10/04/22] doxazosin 4 mg tablet 4 mg PO BID BLOOD PRESSURE 10/02/22 [History Last Taken 03/21/23] esomeprazole magnesium 20 mg capsule,delayed release (Nexium) 20 mg PO DAILY GERD 10/02/22 [History Last Taken 08/07/23] loratadine 10 mg tablet 10 mg PO DAILY ALLERGIES 10/02/22 [History Last Taken 03/21/23] losartan 100 mg tablet 100 mg PO DAILY BLOOD PRESSURE 10/02/22 [History Last Taken 08/07/23] oxybutynin chloride 10 mg tablet,extended release 24 hr 10 mg PO DAILY bladder 10/04/22 [History Last Taken 03/21/23] timolol maleate 0.5 % eye drops 1 drp LEFT EYE DAILY EYE HEALTH 10/04/22 [History Last Taken 03/20/23] apixaban 5 mg tablet 5 mg PO BID afib #180 tabs 12/03/22 [Rx Last Taken 03/21/23] rosuvastatin 20 mg tablet 20 mg PO DAILY cholesterol 03/21/23 [History Last Taken 03/21/23] omega-3 fatty acids-vitamin E 1,000 mg capsule 1 cap PO BID Check with primary doctor 03/22/23 [History Last Taken 03/21/23] fluticasone furoate 200 mcg-vilanterol 25 mcg/dose inhalation powder (Breo Ellipta) 1 inh inhalation QDAY #60 ea 04/04/23 [Rx Last Taken Unknown] amlodipine 10 mg tablet 5 mg (1/2 x 10 mg) PO DAILY #90 tabs 05/08/23 [Rx Last Taken 08/07/23] triamcinolone acetonide 55 mcg nasal spray aerosol (Nasacort) 2 spray intranasal BID 05/21/23 [History Last Taken Unknown] infliximab 100 mg intravenous solution (Remicade) 100 mg IV .Q7W crohns 05/24/23 [History Last Taken Unknown] hydralazine 100 mg tablet 100 mg PO TID BLOOD PRESSURE #270 tabs 06/14/23 [Rx Last Taken Unknown] isosorbide mononitrate 60 mg tablet,extended release 24 hr 60 mg PO BID BLOOD PRESSURE #90 tabs 07/25/23 [Rx Last Taken 08/07/23] montelukast 10 mg tablet 10 mg PO QPM #30 tabs 07/25/23 [Rx Last Taken Unknown] amiodarone 200 mg tablet See Rx Instructions .Route .COMPLEX #45 TABLETS 08/28/23 [Rx Last Taken Unknown] potassium chloride 10 mEq tablet,extended release(part/cryst) 10 meq PO DAILY supplement 09/04/23 [History Last Taken Unknown] Allergy/AdvReac Type Severity Reaction Status Date / Time aspirin Allergy Severe Mouth Verified 09/03/23 23:35 swelling donepezil [From Aricept] AdvReac Severe Swelling Verified 09/03/23 23:35 minoxidil AdvReac Severe swelling Verified 09/03/23 23:35 morphine AdvReac Severe UNABLE TO Verified 09/03/23 23:35 URINATE Family History Mother Heart disease Diabetes Father Heart disease Lung disease Brother Heart disease Lung disease Cancer prostate, pancreatic Sister Diabetes Cancer uterine Surgical History Cervical vertebral fusion History of back surgery History of bilateral knee replacement History of cardiac catheterization History of left heart catheterization (LHC) (~12/22/21) History of prostate biopsy History of removal of cyst Hx of colectomy Hx of cystoscopy Hx of surgical procedure Social History Smoking Status: Former smoker how long ago did patient quit smokin, 2ppd second hand exposure: Yes alcohol intake: never substance use type: does not use caffeine: Yes Type: coffee Number of servings: 2 ROS ROS ED Constitutional Constitutional ED: Denies chills or fever(s) ENT ENT ED: Reports rhinorrhea; Denies sore throat Cardiovascular Cardiovascular: Denies chest pain Respiratory/Chest Respiratory/Chest: Reports cough, dyspnea and dyspnea on exertion Gastrointestinal Gastrointestinal: Denies abdominal pain, diarrhea, nausea or vomiting Genitourinary Genitourinary ED: Denies dysuria Musculoskeletal Musculoskeletal: Reports myalgias Integumentary Denies rash Neurologic Neurologic: Reports weakness; Denies headache(s) Hematologic/Lymphatic Hematologic/Lymphatic: Reports easy bleeding and easy bruising EXAM Physical Exam Const Vital Signs: 09/03/23 23:18 09/03/23 23:36 09/04/23 00:25 Temperature 97.8 F Temperature Source Oral Pulse Rate 68 65 Respiratory Rate 20 H 23 H Respiratory Effort Short of Breath Respiratory Depth Normal Respiratory Pattern Tachypnea Blood Pressure 179/95 H 195/98 H Blood Pressure Mean 123 130 Pulse Ox 93 92 Oxygen Delivery Method Room Air Room Air Room Air 09/04/23 01:25 09/04/23 02:00 Temperature 98.9 F Temperature Source Pulse Rate 71 70 Respiratory Rate 21 H 20 H Respiratory Effort Respiratory Depth Respiratory Pattern Blood Pressure 159/90 H 183/97 H Blood Pressure Mean 113 125 Pulse Ox 91 95 Oxygen Delivery Method Room Air Positive well nourished, well developed and obese General Appearance ED: well developed and pallor Nutritional Appearance: obese HEENT HEENT Narrative: No tongue or lip swelling noted. No airway edema or compromise Cobblestoning noted in the posterior pharynx consistent with sinus drainage Eyes PERRL and EOMs intact bilaterally General Eye ED: Negative for scleral icterus Neck supple and no JVD Chest Wall palpation of chest normal Resp Resp Narrative: Patient is tachypneic with mild accessory muscle use Breath sounds are diminished throughout with crackles and rhonchi in the bilateral bases. Cardio regular rate and regular rhythm Rate: other Other Details: Radial and carotid pulses are equal and symmetric GI normal to inspection, nondistended, normoactive bowel sounds, non-tender, non- distended and no masses GI Narrative: No voluntary guarding or rigidity No pulsatile mass or fluid wave Auscultation: normoactive bowel sounds Palpation: soft Extremity Extremity Narrative: +3 pitting edema to the bilateral lower extremities that is equal and symmetric. Neuro oriented x3 and CN's II-XII intact bilaterally Sensorium / Orientation: alert Psych Psych Narrative: Patient has a depressed and tearful affect Skin no rashes or lesions noted General Skin Exam: pallor MDM MDM MDM Narrative Medical decision making narrative: Patient presented to the ER afebrile and mildly hypertensive. He had a pulse ox of 91 to 92% on room air but but had increased work of breathing. Differential diagnosis is for COVID versus influenza versus pneumonia versus congestive heart failure exacerbation versus anemia versus electrolyte derangement. Secondary to this a basic workup was obtained. Workup was positive for COVID-19 but otherwise there is no clinically significant findings. X-ray did not reveal any type of pneumothorax pneumonia or pleural effusion. The patient was resting comfortably at rest with a pulse ox of 92 to 94% but with ambulation his pulse ox dropped to 86/87%. Secondary to the hypoxia with exertion and his COVID-19 diagnosis I do not feel that he is safe for discharge home. I contacted the hospitalist secondary to this who agrees with admission secondary to his hypoxia with ambulation/exertion and generalized weakness. Patient will be started on Decadron secondary to the COVID-19 and will be admitted to the medical floor for continued care History & Record Review Discussion w/independent historian: Patient Lab Data Attestation: I reviewed the patient's lab results. Labs: Laboratory Results - last 24 hr 09/03/23 23:35 WBC 5.3 RBC 4.25 L Hgb 12.9 L Hct 39.1 L MCV 92.0 MCH 30.4 MCHC 33.0 RDW Std Deviation 50.4 H RDW Coeff of Azeem 14.8 H Plt Count 191 MPV 11.1 Immature Gran % (Auto) 1.700 H Neut % (Auto) 60.4 Lymph % (Auto) 25.6 [place] % (Auto) 11.9 H Eos % (Auto) 0.0 Baso % (Auto) 0.4 Absolute Neuts (auto) 3.2 Absolute Lymphs (auto) 1.35 Nucleated RBC % 0 Sodium 138 Potassium 3.7 Chloride 105 Carbon Dioxide 26.0 Anion Gap 7 BUN 24 H Creatinine 1.53 H Estim Creat Clear Calc 35.33 Est GFR (MDRD) Af Amer 57 L Est GFR (MDRD) Non-Af 47 L BUN/Creatinine Ratio 15.7 Glucose 184 H Calcium 8.8 Magnesium 2.2 B-Natriuretic Peptide 65.2 Radiography Diagnostic Testing: Clinical Impression(s) from Imaging Studies Chest X-Ray 09/03/23 23:50 IMPRESSION: No evidence of acute cardiopulmonary disease. Electronically Signed: Tejas Selby DO at 0:12 EST , Chest x-ray as interpreted by the emergency medicine physician reveals no acute infiltrate pneumothorax pleural effusion or widening of the mediastinum Management Discussion w/another healthcare provider: Hospitalist Discharge Plan Dx/Rx/DC Orders Clinical Impression: COVID-19, Dyspnea on exertion, Prostate cancer Disposition Disposition: Acute Care [facility]
--- NOTE | 2023-09-04 01:58 | PCM.HP.STD ---
[facility] - General General Date of Admission: 09/04/23 Date of Service: 09/04/23 Chief Complaint: SOB, cough and body aches with generalized weakness. [facility] Narrative MEGAN HOLLOWAY, is a 78 M with a past medical history of hypertension, hyperlipidemia, diabetes mellitus type 2; of unknown control, remote history of tobacco abuse (quit 1975), obesity; with BMI of 35.9 this admission, obstructive sleep apnea, chronic atrial fibrillation; on amiodarone and apixaban, coronary artery disease; status post left heart cath (2021) with previously documented allergy to aspirin, history of nonrheumatic aortic valve stenosis, pulmonary hypertension, history of asthma, depression with anxiety, osteoarthritis; with history of back surgery x 2, history of gout, history of COVID-19 (2019) and history of prostate cancer; with the patient just having started radiation therapy and about to begin chemotherapy planned for next week who presents to [facility] ER complaining of shortness of breath, cough and body aches with generalized weakness. Mr. Holloway reports his symptoms began approximately 5 to 7 days prior to admission with a gradual onset of dyspnea on exertion, cough and congestion along with 3+ bilateral lower extremity edema that is equal and symmetric. Then over the past 1 to 2 days he has noted severe generalized weakness with bouts of difficult breathing even at rest it is now caused him to come in to seek further evaluation and treatment. He admits his has been sick with a viral respiratory illness. He denies associated fever, chills, nausea, vomiting, chest pain or abdominal pain but he does admit to rhinorrhea, severe myalgias and generalized weakness. In the ER his assay returned positive for COVID-19 in the setting of clinical suspicion for acute bronchitis with bronchospasm and acute hypoxic respiratory insufficiency and he was then admitted to the general medical floor under contact and droplet precautions for a stay that is expected to be greater than 48 hours. [facility] Medical History (Updated 09/04/23 @ 02:[address] Laureano Lucero DO) Abnormal stress test Acute bronchitis with bronchospasm Acute respiratory insufficiency Ambulates with cane Anxiety Aortic stenosis Arthritis Asthma Asymptomatic hypertensive urgency Atherosclerotic heart disease of [place] coronary artery without angina pectoris Atrial fibrillation with RVR Back pain Bronchitis CAD in [place] artery Cancer Cardiology follow-up encounter Chronic anticoagulation Closed head injury Colitis Concussion Covid-19 COVID-19 virus infection CPAP (continuous positive airway pressure) dependence Dementia Depression Diabetes Diabetes Diverticula of colon DM2 (diabetes mellitus, type 2) Essential hypertension Excessive bleeding Former smoker Gastric reflux Heart failure High cholesterol History of atrial fibrillation History of echocardiogram History of edema History of renal disease History of steroid therapy History of stress test HTN (hypertension) Hyperlipidemia Hypertensive urgency Inflammatory bowel disease Injury of head and neck Intractable pain Kidney stones Loss of consciousness Nonrheumatic aortic (valve) stenosis NSVT (nonsustained ventricular tachycardia) SUPA (obstructive sleep apnea) Paroxysmal atrial fibrillation Prostate cancer Prostate disease Pulmonary hypertension Renal colic on left side Rheumatoid aortitis Rheumatoid arthritis Rhinovirus Sepsis Severe acute respiratory syndrome coronavirus 2 (SARS-CoV-2) infection ruled out Severe sepsis Sleep apnea SOB (shortness of breath) Ureterolithiasis Wears dentures Wears glasses Wears hearing aid Home Medications glimepiride 2 mg tablet 2 mg PO QHS diabetes 01/22/18 [History Last Taken 03/21/23] [id number] 300 mcg-K 60 mcg-lycop 600 mcg-lutein 300 mcg tablet (Centrum Silver Men) 1 ea PO DAILY supplement 09/17/18 [History Last Taken 03/21/23] duloxetine 60 mg capsule,delayed release (Cymbalta) 60 mg PO DAILY depression 06/02/19 [History Last Taken 03/21/23] buspirone 7.5 mg tablet 7.5 mg PO BID depression/anxiety 04/12/21 [History Last Taken 03/21/23] calcium carbonate 600 mg-vitamin D3 5 mcg (200 unit) tablet 1 tab PO DAILY supplement 12/21/21 [History Last Taken 03/21/23] latanoprost 0.005 % eye drops 1 drp LEFT EYE QPM eye health 12/22/21 [History Last Taken 03/20/23] gabapentin 600 mg tablet 300 mg PO BID neuropathy 01/26/22 [History Last Taken 03/21/23] carvedilol 25 mg tablet 25 mg PO BID HEART 10/02/22 [History Last Taken 08/07/23] cholecalciferol (vitamin D3) 25 mcg (1,000 unit) capsule 25 mcg PO DAILY SUPPLEMENT 10/02/22 [History Last Taken 10/04/22] doxazosin 4 mg tablet 4 mg PO BID BLOOD PRESSURE 10/02/22 [History Last Taken 03/21/23] esomeprazole magnesium 20 mg capsule,delayed release (Nexium) 20 mg PO DAILY GERD 10/02/22 [History Last Taken 08/07/23] loratadine 10 mg tablet 10 mg PO DAILY ALLERGIES 10/02/22 [History Last Taken 03/21/23] losartan 100 mg tablet 100 mg PO DAILY BLOOD PRESSURE 10/02/22 [History Last Taken 08/07/23] oxybutynin chloride 10 mg tablet,extended release 24 hr 10 mg PO DAILY bladder 10/04/22 [History Last Taken 03/21/23] timolol maleate 0.5 % eye drops 1 drp LEFT EYE DAILY EYE HEALTH 10/04/22 [History Last Taken 03/20/23] apixaban 5 mg tablet 5 mg PO BID afib #180 tabs 12/03/22 [Rx Last Taken 03/21/23] rosuvastatin 20 mg tablet 20 mg PO DAILY cholesterol 03/21/23 [History Last Taken 03/21/23] omega-3 fatty acids-vitamin E 1,000 mg capsule 1 cap PO BID Check with primary doctor 03/22/23 [History Last Taken 03/21/23] fluticasone furoate 200 mcg-vilanterol 25 mcg/dose inhalation powder (Breo Ellipta) 1 inh inhalation QDAY #60 ea 04/04/23 [Rx Last Taken Unknown] amlodipine 10 mg tablet 5 mg (1/2 x 10 mg) PO DAILY #90 tabs 05/08/23 [Rx Last Taken 08/07/23] triamcinolone acetonide 55 mcg nasal spray aerosol (Nasacort) 2 spray intranasal BID 05/21/23 [History Last Taken Unknown] infliximab 100 mg intravenous solution (Remicade) 100 mg IV .Q7W crohns 05/24/23 [History Last Taken Unknown] hydralazine 100 mg tablet 100 mg PO TID BLOOD PRESSURE #270 tabs 06/14/23 [Rx Last Taken Unknown] isosorbide mononitrate 60 mg tablet,extended release 24 hr 60 mg PO BID BLOOD PRESSURE #90 tabs 07/25/23 [Rx Last Taken 08/07/23] montelukast 10 mg tablet 10 mg PO QPM #30 tabs 07/25/23 [Rx Last Taken Unknown] amiodarone 200 mg tablet See Rx Instructions .Route .COMPLEX #45 TABLETS 08/28/23 [Rx Last Taken Unknown] potassium chloride 10 mEq tablet,extended release(part/cryst) 10 meq PO DAILY supplement 09/04/23 [History Last Taken Unknown] Allergy/AdvReac Type Severity Reaction Status Date / Time aspirin Allergy Severe Mouth Verified 09/03/23 23:35 swelling donepezil [From Aricept] AdvReac Severe Swelling Verified 09/03/23 23:35 minoxidil AdvReac Severe swelling Verified 09/03/23 23:35 morphine AdvReac Severe UNABLE TO Verified 09/03/23 23:35 URINATE Family History Mother Heart disease Diabetes Father Heart disease Lung disease Brother Heart disease Lung disease Cancer prostate, pancreatic Sister Diabetes Cancer uterine Surgical History Cervical vertebral fusion History of back surgery History of bilateral knee replacement History of cardiac catheterization History of left heart catheterization (LHC) (~12/22/21) History of prostate biopsy History of removal of cyst Hx of colectomy Hx of cystoscopy Hx of surgical procedure Social History Smoking Status: Former smoker how long ago did patient quit smokin, 2ppd second hand exposure: Yes alcohol intake: never substance use type: does not use caffeine: Yes Type: coffee Number of servings: 2 ROS ROS Narrative Review of systems: Constitutional: Patient denies fever or chills. Eyes: Patient denies visual changes. ENT: Patient admits to runny nose but denies sore throat or ear pain. Cardiovascular: Patient denies chest pain or palpitations. Respiratory: Patient admits to dyspnea on exertion that progressed to shortness of breath at rest with a nonproductive cough. Gastrointestinal: Patient denies abdominal pain, diarrhea, nausea or vomiting. Genitourinary: Patient denies dysuria, hematuria or urinary frequency. Musculoskeletal: Patient admits to severe myalgias and generalized weakness with increasing falls. Integumentary: Patient denies rash. Neurologic: Patient admits to weakness that is generalized and not focal. He denies headache. Hematologic: Patient admits to easy bleeding and easy bruisability as he is on full anticoagulation. Allergic: Patient denies lip swelling, tongue swelling or urticaria. Psychiatric: Patient is tearful and has a depressed affect. 14 point review of systems otherwise negative except for positives noted above in HPI. Vital Signs Vital Signs Vital Signs: 09/03/23 23:18 09/03/23 23:36 09/04/23 00:25 Temperature 97.8 F Temperature Source Oral Pulse Rate 68 65 Respiratory Rate 20 H 23 H Respiratory Effort Short of Breath Respiratory Depth Normal Respiratory Pattern Tachypnea Blood Pressure 179/95 H 195/98 H Blood Pressure Mean 123 130 Pulse Ox 93 92 Oxygen Delivery Method Room Air Room Air Room Air 09/04/23 01:25 Temperature Temperature Source Pulse Rate 71 Respiratory Rate 21 H Respiratory Effort Respiratory Depth Respiratory Pattern Blood Pressure 159/90 H Blood Pressure Mean 113 Pulse Ox 91 Oxygen Delivery Method Room Air Weight Weight: 222 lb 3.615 oz Body Mass Index (BMI) 35.9 Physical Exam Const alert, oriented x3 and average body habitus Constitutional Narrative: Patient is obese, dyspneic at rest and appears acutely ill. General Appearance: cooperative HEENT normocephalic, head/scalp atraumatic, hearing grossly normal bilaterally and moist oral mucous membranes HEENT Narrative: Patient has cobblestoning noted in his posterior pharynx consistent with sinus drainage. Eyes PERRL and EOMs intact bilaterally Neck supple and no JVD Resp Resp Narrative: Patient is noted to be using accessory muscles and is tachypneic at rest with decreased air movement and scattered rhonchi throughout. Cardio regular rate and regular rhythm GI normal to inspection, nondistended, normoactive bowel sounds, soft to palpation, non-tender and non-distended Extremity Extremity Narrative: Patient has 3+ pitting edema in his bilateral lower extremities that is equal and symmetric. Skin Skin Narrative: Patient has no evidence of rash at this time. He does have a pale appearance. Neuro oriented x3, CN's II-XII intact bilaterally, moves all extremities and no focal motor deficits Sensorium / Orientation: awake, alert, oriented to person, oriented to place and oriented to time Speech: speech normal Psych Psych Narrative: Patient is tearful with a depressed affect. Mood & Affect: depressed Results Medical Records Data Attestation: I reviewed the patient's medical records Lab / Micro Data Attestation: I reviewed the patient's lab results. 09/03/23 23:35 09/03/23 23:35 Labs: Laboratory Results - last 24 hr 09/03/23 23:35: WBC 5.3, RBC 4.25 L, Hgb 12.9 L, Hct 39.1 L, MCV 92.0, MCH 30.4, MCHC 33.0, RDW Std Deviation 50.4 H, RDW Coeff of Azeem 14.8 H, Plt Count 191, MPV 11.1, Immature Gran % (Auto) 1.700 H, Neut % (Auto) 60.4, Lymph % (Auto) 25.6, [place] % (Auto) 11.9 H, Eos % (Auto) 0.0, Baso % (Auto) 0.4, Absolute Neuts (auto) 3.2, Absolute Lymphs (auto) 1.35, Nucleated RBC % 0, Sodium 138, Potassium 3.7, Chloride 105, Carbon Dioxide 26.0, Anion Gap 7, BUN 24 H, Creatinine 1.53 H, Estim Creat Clear Calc 35.33, Est GFR (MDRD) Af Amer 57 L, Est GFR (MDRD) Non-Af 47 L, BUN/Creatinine Ratio 15.7, Glucose 184 H, Calcium 8.8, Magnesium 2.2, B-Natriuretic Peptide 65.2 Micro: Microbiology 09/03/23 23:41 Nasal Secretion SARS-CoV-2 & FLU Antigen (Rapid) - Final SARS-CoV-2 (COVID 19) Imagaing Radiology Impression Chest X-Ray 09/03/23 23:50 IMPRESSION: No evidence of acute cardiopulmonary disease. Electronically Signed: Tejas Selby DO at 0:12 EST Reading Location ID and State: [facility] / [place] Tel , Service support , Assessment & Plan Assessment/Plan (1) COVID-19: (2) Acute bronchitis with bronchospasm: (3) Acute respiratory insufficiency: (4) Cancer of prostate with intermediate recurrence risk (stage T2b-c or [place] 7 or PSA 10-20): PLAN: Plan 1. Acute COVID-19 infection with severe myalgias in elderly, obese patient with multiple comorbidities - Admit to general medical floor under contact and droplet precautions. Continue IV Decadron begun in the ER and add scheduled and as needed nebulizers. Give vitamin D3, vitamin C and zinc to optimize immune response. Give Tylenol as needed for fever or pain. 2. Acute bronchitis with bronchospasm complicating #1 with patient having been sick for an entire week - Start doxycycline 100 mg IV twice daily. Start Mucinex 600 mg p.o. twice daily to mobilize secretions. 3. Acute hypoxic respiratory insufficiency arising from #1 & #2 - Wean supplemental oxygen as tolerated and monitor for improvement. 4. Known history of prostate cancer; already on radiation with scheduled to start chemotherapy next week compounding #1 - #3 - Patient will likely not be able to safely start chemotherapy until this acute illness resolves. Otherwise continue supportive care. 5. Generalized weakness with ambulatory dysfunction and falls due to #1 - #4 in the setting of previous back surgeries x 2 and severe osteoarthritis - PT/OT and case management to consult and treat with help appreciated in advance. 6. Essential hypertension - Continue home medications as previous. Plus give IV hydralazine as needed for systolic blood pressure greater than 160 mmHg. 7. Hyperlipidemia - Resume statin. 8. Chronic atrial fibrillation; on amiodarone and apixaban - Continue amiodarone and apixaban as previous. 9. Diabetes mellitus type 2; of unknown control - ADA diet. Fingerstick blood sugars before every meal and at bedtime plus sliding scale insulin. Check hemoglobin A1c to objectively evaluate quality of diabetic control. 10. DVT prophylaxis - Patient is already on apixaban which will be continued. Total time: Approximately 75 minutes. Charges/Coding Visit Charges Inpatient E&M: 36593 Init Hosp L3
[2023-09-04] MEDS: dexAMETHasone 10 MG/ML Vial 6 MG IV ×3 (02:13→22:48)
[2023-09-04] MEDS: Albuterol 2.5 MG/3 ML VIAL.NEB. INHALATION ×4 (03:14→19:46)
[2023-09-04 03:37] LABS: Allen Test Positive; Base Excess 2 mmol/L (-2 to +2); Bicarbonate 26.1 mmol/L (22-26); Blood Gas Specimen Type ART; Mode Not entered; O2 Delivery Device Room Air; PO2 55 mmHG (75-100); SITE L Radial; SO2 89 % (95-99); Total Carbon Dioxide 27 mmol/L; pCO2 38.2 mmHg (35-45); pH 7.44 (7.35-7.45)
[2023-09-04] MEDS: Doxycycline 100 MG in Dextrose 5%-Water (250mL Bag) 250 ML 250 MG IV ×2 (06:39→22:47)
--- NOTE | 2023-09-04 07:47 | PN.HOSP_ITS ---
Reason for Visit Reason for Visit: Diagnoses Malignant neoplasm of prostate (09/04/23) Acute bronchitis, unspecified (09/04/23) Other abnormalities of breathing (09/04/23) COVID-19 (09/04/23) Subjective Subjective Patient is a 78-year-old gentleman admitted with 1 week history of shortness of breath with myalgias. Diagnosed with acute COVID 19 admitted to monitored bed nursing floor for further management Objective Data Objective Data Vital Signs: Vital Signs Temp Pulse Resp BP Pulse Ox O2 Del Method O2 Flow Rate 97.3 F L 68 22 H 204/99 H 97 Nasal Cannula 2.5 09/04/23 06:41 09/04/23 06:41 09/04/23 06:41 09/04/23 06:41 09/04/23 06:41 09/04/23 06:41 09/04/23 06:41 Oxygen Flow Rate (L/min) 2.5 Oxygen Delivery Method Nasal Cannula Weight: 96.1 kg Body Mass Index (BMI) 33.1 Intake & Output: Intake and Output for Last 24 Hours 09/02/23 09/03/23 09/04/23 23:59 23:59 23:59 Output Total 600 / 600 Balance -600 / -600 Lab / Micro Data 09/03/23 23:35 09/03/23 23:35 Labs: Laboratory Results - last 24 hr 09/03/23 23:35: WBC 5.3, RBC 4.25 L, Hgb 12.9 L, Hct 39.1 L, MCV 92.0, MCH 30.4, MCHC 33.0, RDW Std Deviation 50.4 H, RDW Coeff of Azeem 14.8 H, Plt Count 191, MPV 11.1, Immature Gran % (Auto) 1.700 H, Neut % (Auto) 60.4, Lymph % (Auto) 25.6, [place] % (Auto) 11.9 H, Eos % (Auto) 0.0, Baso % (Auto) 0.4, Absolute Neuts (auto) 3.2, Absolute Lymphs (auto) 1.35, Nucleated RBC % 0, Sodium 138, Potassium 3.7, Chloride 105, Carbon Dioxide 26.0, Anion Gap 7, BUN 24 H, Creatinine 1.53 H, Estim Creat Clear Calc 35.33, Est GFR (MDRD) Af Amer 57 L, Est GFR (MDRD) Non-Af 47 L, BUN/Creatinine Ratio 15.7, Glucose 184 H, Calcium 8.8, Magnesium 2.2, B- Natriuretic Peptide 65.2 Micro: Microbiology 09/03/23 23:41 Nasal Secretion SARS-CoV-2 & FLU Antigen (Rapid) - Final SARS-CoV-2 (COVID 19) ABG Data ABG results: ABG 09/04/23 03:33 Specimen Type ART Sample Site L Radial pH 7.44 Bicarbonate Actual 26.1 H Total CO2 27 Base Excess 2 O2 Saturation 89 L O2 % 21.0 ABG pCO2 38.2 ABG pO2 55 L Jasbir Test Positive O2 Delivery Device Room Air Vent Mode Not entered Radiography Diagnostic Testing: Radiology Impression Chest X-Ray 09/03/23 23:50 IMPRESSION: No evidence of acute cardiopulmonary disease. Electronically Signed: Tejas Selby DO at 0:12 EST , Physical Exam Narrative GENERAL: cooperative HEENT: Atraumatic; normocephalic EYES; Anicteric, Normal Conjunctiva NECK; supple, normal thyroid, RESPIRATORY: Diminished to auscultation CARDIOVASCULAR: Regular S1 S2, GI: soft, normoactive bowel sounds, : No Renal angle tenderness; EXTREMITIES: No edema, no clubbing, MUSCULOSKELETAL: no muscle wasting NEURO: Awake; no lateralizing signs. SKIN: No Rash PSYCH; Flat affect Assessment & Plan Assessment/Plan (1) COVID-19: (2) Acute bronchitis with bronchospasm: (3) Acute respiratory insufficiency: (4) Cancer of prostate with intermediate recurrence risk (stage T2b-c or [place] 7 or PSA 10-20): PLAN: Plan Patient is a 78-year-old gentleman admitted with 1 week history of shortness of breath with myalgias. Diagnosed with acute COVID 19 admitted to monitored bed nursing floor for further management 1. Acute COVID 19 acute hypoxic renal insufficiency ? With significant symptoms including myalgias admitted to regular nursing floor patient started on Decadron Pimental oxygen 2. Prostate cancer ? Treated with radiation and apparently scheduled to initiate chemotherapy in a week* 3. Chronic kidney disease stage III ? Kidney function at baseline 4. Diabetes mellitus type 2 ? Patient oral hypoglycemic agent held, please on Accu-Cheks before meals and at bedtime with sliding scale coverage 5. Hypertension - Blood pressure controlled, home medications continued with dose adjustment as needed 6. Dyslipidemia -Patient is on statin therapy, continued at home dose 7. Chronic A-fib ? Rate controlled on amiodarone, on systemic anticoagulation with apixaban 8. Moderate intermittent asthma ? Did continue patient bronchodilator treatment regimen 9. Class I obesity with BMI of 33.3 ? Complicating care weight loss advised 10. Rheumatoid arthritis ? Patient is on infliximab 11. Dementia ? Supportive care 12. DVT prophylaxis ? Patient on apixaban Time spent in the patient's overall evaluation,decision-making process, review of diagnostic data, adjustment of management, discussion with other providers, nursing nursing and ancillary staff involved in patient's care documentation, 55 Minutes Advance planning; did discuss with the patient and family regarding advanced directives as well as CODE STATUS. Did explain the various scenarios involved ( FULL CODE, DNR CCA, DNR CCA with no intubation, and DNR CC and what each meant) patient elected to be DNR CCA no intubation. Order was placed. Time spent on discussion 18 minutes. Charges/Coding Visit Charges Inpatient E&M: 40340 Subs Hosp L3 Procedures Hospitalists Procedures: 25587 Advncd Care Plan 30 Min
[2023-09-04 08:10] LABS: Hemoglobin A1c 6.5 % (3.8-5.6)
[2023-09-04] MEDS: Budesonide Respules 0.5 MG/2 ML AMPUL.NEB. INHALATION ×2 (09:27→19:46)
[2023-09-04] MEDS: hydrALAZINE 50 MG Tablet 100 MG PO ×3 (09:49→22:56)
[2023-09-04] MEDS: Carvedilol 25 MG Tablet PO ×2 (09:49→17:01)
[2023-09-04] MEDS: Isosorbide Mononitrate 60 MG Tablet PO ×2 (09:50→23:34)
[2023-09-04] MEDS: Loratadine 10 MG Tablet PO (09:50)
[2023-09-04] MEDS: Doxazosin 4 MG Tablet PO ×2 (09:50→22:50)
[2023-09-04] MEDS: Calcium Carb/Vitamin D 1 TABLET Tablet PO (09:50)
[2023-09-04] MEDS: Multivitamins,Ther W-Minerals Tablet 1 TABLET PO (09:51)
[2023-09-04] MEDS: Ascorbic Acid 500 MG Tablet 1000 MG PO ×2 (09:51→17:01)
[2023-09-04] MEDS: busPIRone 5 MG Tablet 7.5 MG PO ×2 (09:51→22:51)
[2023-09-04] MEDS: Tolterodine Tartrate 2 MG CAP.SA PO (09:51)
[2023-09-04] MEDS: Amiodarone 200 MG Tablet 100 MG PO (09:52)
[2023-09-04] MEDS: Fluticasone 0.05% 1 SPRAY NASAL.SRY 2 SPRAY NASAL (09:52)
[2023-09-04] MEDS: Potassium Chloride Oral Tablet 10 MEQ PO (09:52)
[2023-09-04] MEDS: Timolol 0.5% 5ML OPTH.BTL 1 DRP LEFT EYE (09:53)
[2023-09-04] MEDS: amLODIPine 5 MG Tablet PO (09:53)
[2023-09-04] MEDS: guaiFENesin 1,200 MG Tablet 1200 MG PO ×2 (09:53→22:51)
[2023-09-04] MEDS: Cholecalciferol (VIT D3) 25 MCG TABLET (1,000 UNITS) PO (09:53)
[2023-09-04] MEDS: Gabapentin 300 MG Capsule PO ×2 (09:53→22:51)
[2023-09-04] MEDS: DULoxetine Hcl 60 MG Capsule PO (09:53)
[2023-09-04] MEDS: Pantoprazole Sodium 20 MG Tablet PO (09:53)
[2023-09-04] MEDS: APIXABAN 5 MG TABLET PO ×2 (09:53→22:48)
[2023-09-04] MEDS: Insulin Glargine-YFGN 100 UNIT/ML Pen 10 UNIT SC (10:31)
[2023-09-04] MEDS: Losartan Potassium 100 MG Tablet PO (10:31)
[2023-09-04 11:56] LABS: Bedside Glucose 198 mg/dL (74-106)
[2023-09-04] MEDS: Insulin Lispro 100 UNIT/ML INSULN.PEN SC ×3 (13:42→22:53)
--- NOTE | 2023-09-04 14:15 | CASEMGMT ---
Addendum entered and electronically signed by Martita Langley RN 09/05/23 07:33: Pt stated he was scheduled to start radiation tx at the [facility] on Saturday. Pt expressed concern w/ability to proceed with this treatment and if he would need to have previous procedure repeated. Emotional support given. Pt declined for this OCTAVIO BERMUDEZ to contact radiation tx to discuss next steps given pt's current hospitalization. Bishnu Langley RN CM Original Note: OCTAVIO BERMUDEZ Discharge Planning Assessment: Face to Face with patient for initial transition planning/care coordination assessment. OCTAVIO BERMUDEZ introduced self and role at [facility], pt alert, answering questions appropriately, voices understanding and is agreeable to participating in assessment. Care providers, pharmacy, and demographics verified. PCP: Trey Specialists: Rian AGUIRRE (pulmonology), Marsha (urology for prostate CA dx) Preferred Pharmacy: [facility] Insurance: [employer] Prescription Benefit: yes Living Will/HPOA: pt states he has these documents but he does not want to provide copies as pt states he wants to make changes first. LNOK: Natasha Living Arrangements: Pt lives with his in a single story home w/ramp entrance. Pt states he is independent with ADLs and IADLs. Transportation: Pt drives DME: shower chair, grab bars, cane, rollator, glucometer and supplies, CPAP from [facility], nebulizer, pulse oximeter, flutter valve and IS. HHC: yes but unable to recall name of provider SNF: [place] Pt's goal/plan: return home with support of his (who also has COVID). Discussed possible need for home O2 at discharge. Pt states adamantly that he does not want to go home with O2. Educated pt on home O2 purpose. Pt states he has a CPAP and that this helps keep his O2 saturations wnl. Will need to reinforce home O2 purpose if needed at discharge. Pt explained reason for not wanting the home O2 was that he has it previously and it took him 2 years to get rid of it and he had to pay monthly for the equipment. Will continue to monitor and assist with discharge planning needs as further determined. Bishnu Langley RN CM
[2023-09-04 17:06] LABS: Bedside Glucose 212 mg/dL (74-106)
[2023-09-04] MEDS: Latanoprost 0.005% 1 Bottle 1 DRP LEFT EYE (22:47)
[2023-09-04] MEDS: Atorvastatin Calcium 40 MG Tablet PO (22:51)
[2023-09-04] MEDS: Montelukast 10 MG Tablet PO (22:51)
[2023-09-04 23:44] LABS: Bedside Glucose 201 mg/dL (74-106)
[2023-09-05] VITALS (7 sets, daily range): BP systolic 165–183; BP diastolic 92–103; PULSE 62–82; RESP 16–18; TEMP 36.3–36.7; O2SAT 93–96
[2023-09-05 04:42] LABS: Absolute Lymphocyte Count 1.22 X10^3/uL (0.83-4.51); Absolute Neutrophil Count 5.7 X10^3/uL (2.0-7.7); Basophil# 0.01 X10^3/uL; Basophil% 0.1 % (0-1); Hematocrit 38.4 % (40-54); Hemoglobin 12.7 g/dL (13.0-16.5); Lymphocyte # 1.22 X10^3/ul (0.83-4.51); Lymphocyte % 16.7 % (19-41); Mean Corp Hgb Conc 33.1 g/dL (32-36); Mean Corpuscular Hgb 30.1 pg (27.0-32.0); Mean Platelet Vol. 10.9 fl (6.2-12.0); Monocyte# 0.34 X10^3/uL; Monocyte% 4.6 % (0-10); NRBC Flagged by Analyzer 0 % (0-5); Neutrophil % 77.9 % (47-70); Platelet Count 192 K/mm3 (150-450); RBC Distribution Width CV 14.8 % (11.6-14.6); RBC Distribution Width SD 49.4 fl (35.1-43.9); Red Blood Count 4.22 M/mm3 (4.6-6.2); White Blood Count 7.3 K/mm3 (4.4-11.0)
[2023-09-05 05:02] LABS: Anion Gap 7 (5-15); BUN 36 mg/dL (7-18); BUN/Creat Ratio 23.4 RATIO (10-20); Calcium,Total 8.6 mg/dL (8.5-10.1); Chloride 105 mmol/L (98-107); Creatinine, Serum 1.54 mg/dL (0.70-1.30); EST Glomerular Filtration Rate 47 mL/min (>60); Est Glom Filt Rate - Afr Amer 56 mL/min (>60); Estimated Creatinine Clearance 36.36 ml/min; Glucose 199 mg/dL (74-106); Magnesium 2.1 mg/dL (1.6-2.6); Phosphorus 4.8 mg/dL (2.5-4.9); Potassium 3.7 mmol/L (3.5-5.1); Sodium Level 139 mmol/L (136-145)
[2023-09-05] MEDS: Acetaminophen 325 MG Tablet 650 MG PO (06:46)
[2023-09-05] MEDS: Insulin Lispro 100 UNIT/ML INSULN.PEN SC (06:47)
[2023-09-05] MEDS: hydrALAZINE 50 MG Tablet 100 MG PO (06:50)
[2023-09-05 07:14] LABS: Bedside Glucose 188 mg/dL (74-106)
[2023-09-05] MEDS: Albuterol 2.5 MG/3 ML VIAL.NEB. INHALATION (07:37)
[2023-09-05] MEDS: Budesonide Respules 0.5 MG/2 ML AMPUL.NEB. INHALATION (07:37)
--- NOTE | 2023-09-05 09:42 | PCM.PN.HOSP ---
Reason for Visit Reason for Visit: Diagnoses Malignant neoplasm of prostate (09/04/23) Acute bronchitis, unspecified (09/04/23) Other abnormalities of breathing (09/04/23) COVID-19 (09/04/23) Subjective Subjective Seen remains off oxygen patient be assessed for possible discharge Objective Data Objective Data Vital Signs: Vital Signs Temp Pulse Resp BP Pulse Ox O2 Del Method O2 Flow Rate 97.3 F L 78 18 183/103 H 94 Nasal Cannula 2 09/05/23 04:24 09/05/23 07:39 09/05/23 07:39 09/05/23 06:50 09/05/23 07:39 09/05/23 07:39 09/05/23 07:39 Oxygen Flow Rate (L/min) 2 Oxygen Delivery Method Nasal Cannula Weight: 96.1 kg Body Mass Index (BMI) 33.1 Intake & Output: Intake and Output for Last 24 Hours 09/03/23 09/04/23 09/05/23 23:59 23:59 23:59 Intake Total 1620 / 1620 360 / 360 Output Total 2450 / 2450 300 / 300 Balance -830 / -830 60 / 60 Lab / Micro Data 09/05/23 04:20 09/05/23 04:20 Labs: Laboratory Results - last 24 hr 09/04/23 11:38: POC Glucose 198 H 09/04/23 16:45: POC Glucose 212 H 09/04/23 22:46: POC Glucose 201 H 09/05/23 04:20: WBC 7.3, RBC 4.22 L, Hgb 12.7 L, Hct 38.4 L, MCV 91.0, MCH 30.1, MCHC 33.1, RDW Std Deviation 49.4 H, RDW Coeff of Azeem 14.8 H, Plt Count 192, MPV 10.9, Immature Gran % (Auto) 0.700, Neut % (Auto) 77.9 H, Lymph % (Auto) 16.7 L, Burnett % (Auto) 4.6, Eos % (Auto) 0.0, Baso % (Auto) 0.1, Absolute Neuts (auto) 5.7, Absolute Lymphs (auto) 1.22, Nucleated RBC % 0, Sodium 139, Potassium 3.7, Chloride 105, Carbon Dioxide 27.0, Anion Gap 7, BUN 36 H, Creatinine 1.54 H, Estim Creat Clear Calc 36.36, Est GFR (MDRD) Af Amer 56 L, Est GFR (MDRD) Non-Af 47 L, BUN/Creatinine Ratio 23.4 H, Glucose 199 H, Calcium 8.6, Phosphorus 4.8, Magnesium 2.1 09/05/23 06:44: POC Glucose 188 H Micro: Microbiology 09/03/23 23:41 Nasal Secretion SARS-CoV-2 & FLU Antigen (Rapid) - Final SARS-CoV-2 (COVID 19) Physical Exam Narrative GENERAL: cooperative HEENT: Atraumatic; normocephalic EYES; Anicteric, Normal Conjunctiva NECK; supple, normal thyroid, RESPIRATORY: Diminished to auscultation CARDIOVASCULAR: Regular S1 S2, GI: soft, normoactive bowel sounds, : No Renal angle tenderness; EXTREMITIES: No edema, no clubbing, MUSCULOSKELETAL: no muscle wasting NEURO: Awake; no lateralizing signs. SKIN: No Rash PSYCH; Flat affect Assessment & Plan Assessment/Plan (1) COVID-19: (2) Acute bronchitis with bronchospasm: (3) Acute respiratory insufficiency: (4) Cancer of prostate with intermediate recurrence risk (stage T2b-c or Liza 7 or PSA 10-20): PLAN: Plan Patient is a 78-year-old gentleman admitted with 1 week history of shortness of breath with myalgias. Diagnosed with acute COVID 19 admitted to monitored bed nursing floor for further management 1. Acute COVID 19 acute hypoxic renal insufficiency ? With significant symptoms including myalgias admitted to regular nursing floor patient started on Decadron supplemental oxygen ? 09/05/2023. Patient remains off oxygen patient will be assessed for possible discharge 2. Prostate cancer ? Treated with radiation and apparently scheduled to initiate chemotherapy in a week* 3. Chronic kidney disease stage III ? Kidney function at baseline 4. Diabetes mellitus type 2 ? Patient oral hypoglycemic agent held, please on Accu-Cheks before meals and at bedtime with sliding scale coverage 5. Hypertension - Blood pressure controlled, home medications continued with dose adjustment as needed 6. Dyslipidemia -Patient is on statin therapy, continued at home dose 7. Chronic A-fib ? Rate controlled on amiodarone, on systemic anticoagulation with apixaban 8. Moderate intermittent asthma ? Did continue patient bronchodilator treatment regimen 9. Class I obesity with BMI of 33.3 ? Complicating care weight loss advised 10. Rheumatoid arthritis ? Patient is on infliximab 11. Dementia ? Supportive care 12. DVT prophylaxis ? Patient on apixaban Time spent in the patient's overall evaluation,decision-making process, review of diagnostic data, adjustment of management, discussion with other providers, nursing nursing and ancillary staff involved in patient's care documentation, 40 Minutes Charges/Coding Visit Charges Inpatient E&M: 15919 Subs Hosp L2
--- NOTE | 2023-09-05 09:43 | DS.PCM_ITS ---
Providers Date of Admission: 09/04/23 Date of Discharge: 09/05/23 Primary Care Physician: Dr. Jayme Yang MD Reason For Visit: COVID 19, ACUTE BRONCHITIS W/BRONCHOSPASM & GEN Diagnosis Discharge Diagnosis (1) COVID-19: Status: Acute Code(s): U07.1 - COVID-19 (2) Acute bronchitis with bronchospasm: Status: Acute Code(s): J20.9 - Acute bronchitis, unspecified (3) Acute respiratory insufficiency: Status: Acute Code(s): R06.89 - Other abnormalities of breathing (4) Cancer of prostate with intermediate recurrence risk (stage T2b-c or Liza 7 or PSA 10-20): Status: Acute Code(s): C61 - Malignant neoplasm of prostate Plan Patient is a 78-year-old gentleman admitted with 1 week history of shortness of breath with myalgias. Diagnosed with acute COVID 19 admitted to monitored bed nursing floor for further management 1. Acute COVID 19 acute hypoxic renal insufficiency ? With significant symptoms including myalgias admitted to regular nursing floor patient started on Decadron supplemental oxygen ? 09/05/2023. Patient remains off oxygen patient will be assessed for possible discharge 2. Prostate cancer ? Treated with radiation and apparently scheduled to initiate chemotherapy in a week* 3. Chronic kidney disease stage III ? Kidney function at baseline 4. Diabetes mellitus type 2 ? Patient oral hypoglycemic agent held, please on Accu-Cheks before meals and at bedtime with sliding scale coverage 5. Hypertension - Blood pressure controlled, home medications continued with dose adjustment as needed 6. Dyslipidemia -Patient is on statin therapy, continued at home dose 7. Chronic A-fib ? Rate controlled on amiodarone, on systemic anticoagulation with apixaban 8. Moderate intermittent asthma ? Did continue patient bronchodilator treatment regimen 9. Class I obesity with BMI of 33.3 ? Complicating care weight loss advised 10. Rheumatoid arthritis ? Patient is on infliximab 11. Dementia ? Supportive care 12. DVT prophylaxis ? Patient on apixaban Time spent in the patient's overall evaluation,decision-making process, review of diagnostic data, adjustment of management, discussion with other providers, n ursing nursing and ancillary staff involved in patient's care documentation, 40 Minutes Medications at Discharge Home Medications glimepiride 2 mg tablet 2 mg PO QHS diabetes 01/22/18 [id number] 300 mcg-K 60 mcg-lycop 600 mcg-lutein 300 mcg tablet (Centrdennis Napier Men) 1 ea PO DAILY supplement 09/17/18 duloxetine 60 mg capsule,delayed release (Cymbalta) 60 mg PO DAILY depression 06/02/19 buspirone 7.5 mg tablet 7.5 mg PO BID depression/anxiety 04/12/21 calcium carbonate 600 mg-vitamin D3 5 mcg (200 unit) tablet 1 tab PO DAILY supplement 12/21/21 latanoprost 0.005 % eye drops 1 drp LEFT EYE QPM eye health 12/22/21 gabapentin 600 mg tablet 300 mg PO BID neuropathy 01/26/22 carvedilol 25 mg tablet 25 mg PO BID HEART 10/02/22 cholecalciferol (vitamin D3) 25 mcg (1,000 unit) capsule 25 mcg PO DAILY SUPPLEMENT 10/02/22 doxazosin 4 mg tablet 4 mg PO BID BLOOD PRESSURE 10/02/22 esomeprazole magnesium 20 mg capsule,delayed release (Nexium) 20 mg PO DAILY GERD 10/02/22 loratadine 10 mg tablet 10 mg PO DAILY ALLERGIES 10/02/22 losartan 100 mg tablet 100 mg PO DAILY BLOOD PRESSURE 10/02/22 oxybutynin chloride 10 mg tablet,extended release 24 hr 10 mg PO DAILY bladder 10/04/22 timolol maleate 0.5 % eye drops 1 drp LEFT EYE DAILY EYE HEALTH 10/04/22 apixaban 5 mg tablet 5 mg PO BID afib #180 tabs 12/03/22 rosuvastatin 20 mg tablet 20 mg PO DAILY cholesterol 03/21/23 omega-3 fatty acids-vitamin E 1,000 mg capsule 1 cap PO DAILY Check with primary doctor 03/22/23 fluticasone furoate 200 mcg-vilanterol 25 mcg/dose inhalation powder (Breo Ellipta) 1 inh inhalation QDAY #60 ea 04/04/23 amlodipine 10 mg tablet 5 mg (1/2 x 10 mg) PO DAILY #90 tabs 05/08/23 triamcinolone acetonide 55 mcg nasal spray aerosol (Nasacort) 2 spray intranasal BID 05/21/23 infliximab 100 mg intravenous solution (Remicade) 100 mg IV .Q7W crohns 05/24/23 hydralazine 100 mg tablet 100 mg PO TID BLOOD PRESSURE #270 tabs 06/14/23 isosorbide mononitrate 60 mg tablet,extended release 24 hr 60 mg PO BID BLOOD PRESSURE #90 tabs 07/25/23 montelukast 10 mg tablet 10 mg PO QPM #30 tabs 07/25/23 amiodarone 200 mg tablet See Rx Instructions .Route .COMPLEX #45 TABLETS 08/28/23 potassium chloride 10 mEq tablet,extended release(part/cryst) 10 meq PO DAILY supplement 09/04/23 dexamethasone 6 mg tablet 6 mg PO DAILY #7 tabs 09/05/23 doxycycline hyclate 100 mg tablet 100 mg PO BID 14 days #28 tabs 09/05/23 guaifenesin 1,200 mg tablet, extended release 12 hr (Mucus Relief ER) 1,200 mg PO BID #20 tabs 09/05/23 Hospital Course Summary of Care Provided Minutes Spent on Discharge: 40 Physical Exam Narrative GENERAL: cooperative HEENT: Atraumatic; normocephalic EYES; Anicteric, Normal Conjunctiva NECK; supple, normal thyroid, RESPIRATORY: Diminished to auscultation CARDIOVASCULAR: Regular S1 S2, GI: soft, normoactive bowel sounds, : No Renal angle tenderness; EXTREMITIES: No edema, no clubbing, MUSCULOSKELETAL: no muscle wasting NEURO: Awake; no lateralizing signs. SKIN: No Rash PSYCH; Flat affect Weight / BMI Weight Weight: 96.1 kg Body Mass Index (BMI) 33.1 ABG / Lab / Microbiology Data 09/05/23 04:20 09/05/23 04:20 Laboratory: Laboratory Results - last 24 hr 09/04/23 11:38: POC Glucose 198 H 09/04/23 16:45: POC Glucose 212 H 09/04/23 22:46: POC Glucose 201 H 09/05/23 04:20: WBC 7.3, RBC 4.22 L, Hgb 12.7 L, Hct 38.4 L, MCV 91.0, MCH 30.1, MCHC 33.1, RDW Std Deviation 49.4 H, RDW Coeff of Azeem 14.8 H, Plt Count 192, MPV 10.9, Immature Gran % (Auto) 0.700, Neut % (Auto) 77.9 H, Lymph % (Auto) 16.7 L, Borden % (Auto) 4.6, Eos % (Auto) 0.0, Baso % (Auto) 0.1, Absolute Neuts (auto) 5.7, Absolute Lymphs (auto) 1.22, Nucleated RBC % 0, Sodium 139, Potassium 3.7, Chloride 105, Carbon Dioxide 27.0, Anion Gap 7, BUN 36 H, Creatinine 1.54 H, Estim Creat Clear Calc 36.36, Est GFR (MDRD) Af Amer 56 L, Est GFR (MDRD) Non-Af 47 L, BUN/Creatinine Ratio 23.4 H, Glucose 199 H, Calcium 8.6, Phosphorus 4.8, Magnesium 2.1 09/05/23 06:44: POC Glucose 188 H Microbiology: Microbiology 09/03/23 23:41 Nasal Secretion SARS-CoV-2 & FLU Antigen (Rapid) - Final SARS-CoV-2 (COVID 19) D/C Instructions Discharge Diet: 1800 Calorie Control Diet Discharge Activity: Return to Normal Activity Call your doctor if you observe: Fever of 101 or Higher, Shortness of breath, Fainting spells and Chest pain Meaningful Use Info Meaningful Use Diagnoses (Choose all that apply): None applicable Discharge Plan Admission Admit Date/Time: 09/04/23 02:36 Attending Provider: Laureano Lima Primary Care Provider: Jayme Yang Consulting Providers: Laureano Lucero Discharge Orders/Prescriptions Prescriptions: New guaifenesin [Mucus Relief ER] 1,200 mg Tablet Extended Release 12hr 1,200 mg PO BID Qty: 20 0RF doxycycline hyclate 100 mg tablet 100 mg PO BID 14 Days Qty: 28 0RF dexamethasone 6 mg tablet 6 mg PO DAILY Qty: 7 0RF Continued duloxetine [Cymbalta] 60 mg capsule,delayed release(DR/EC) 60 mg PO DAILY gabapentin 600 mg tablet 300 mg PO BID fluticasone furoate-vilanterol [Breo Ellipta] 200-25 mcg/dose blister with device 1 inh inhalation QDAY Qty: 60 6RF Rx Instructions: after inhalation, rinse mouth with water and spit out; do not swallow triamcinolone acetonide [Nasacort] 55 mcg aerosol,spray 2 spray intranasal BID Rx Instructions: administer into each nostril glimepiride 2 MG tablet 2 mg PO QHS Patient Comments: Centrum Silver Men 1 EACH tablet 1 ea PO DAILY buspirone 7.5 mg tablet 7.5 mg PO BID calcium carbonate-vitamin D3 600 mg-5 mcg (200 unit) Tablet 1 tab PO DAILY latanoprost 0.005 % Drops 1 drp LEFT EYE QPM carvedilol 25 mg tablet 25 mg PO BID losartan 100 mg tablet 100 mg PO DAILY loratadine 10 mg Tablet 10 mg PO DAILY esomeprazole magnesium [Nexium] 20 mg Capsule,Delayed Release(Dr/Ec) 20 mg PO DAILY cholecalciferol (vitamin D3) 25 mcg (1,000 unit) Capsule 25 mcg PO DAILY doxazosin 4 mg tablet 4 mg PO BID oxybutynin chloride 10 mg tablet extended release 24hr 10 mg PO DAILY timolol maleate 0.5 % drops 1 drp LEFT EYE DAILY rosuvastatin 20 mg tablet 20 mg PO DAILY omega-3 fatty acids-vitamin E 1,000 mg Capsule 1 cap PO DAILY infliximab [Remicade] 100 mg recon soln 100 mg IV .Q7W Patient Comments: INFUSE 10MG/KG IV EVERY 7 WEEKS. DUE ON Saturday09/06/23 potassium chloride 10 mEq tablet,ER particles/crystals 10 meq PO DAILY apixaban 5 mg tablet 5 mg PO BID Qty: 180 3RF amlodipine 10 mg tablet 5 mg PO DAILY Qty: 90 3RF hydralazine 100 mg tablet 100 mg PO TID Qty: 270 3RF montelukast 10 mg tablet 10 mg PO QPM Qty: 30 3RF isosorbide mononitrate 60 mg tablet extended release 24 hr 60 mg PO BID Qty: 90 3RF amiodarone 200 mg tablet See Rx Instructions .ROUTE .COMPLEX Qty: 45 3RF Dose Instruction: Take 1/2 (one-half) tablet by mouth once daily Patient Comments: PT IS NOT SURE OF THE DOSAGE Rx Instructions: Take 1/2 (one-half) tablet by mouth once daily Referrals / Follow Up: Jayme Yang MD [Primary Care Provider] - Within 1 Week Disposition Disposition (needs filled in before D/C Order can be placed): Home, Self Care Charges/Coding Visit Charges Inpatient E&M: 42295 Disch Hosp >30min
[2023-09-05] MEDS: Doxycycline 100 MG in Dextrose 5%-Water (250mL Bag) 250 ML 250 MG IV (10:05)
[2023-09-05] MEDS: 0.9% Saline Lock 10 ML Syringe IV (10:09)
[2023-09-05] MEDS: dexAMETHasone 10 MG/ML Vial 6 MG IV (10:10)
[2023-09-05] MEDS: busPIRone 5 MG Tablet 7.5 MG PO (10:11)
[2023-09-05] MEDS: amLODIPine 5 MG Tablet PO (10:11)
[2023-09-05] MEDS: Carvedilol 25 MG Tablet PO (10:11)
[2023-09-05] MEDS: Loratadine 10 MG Tablet PO (10:12)
[2023-09-05] MEDS: APIXABAN 5 MG TABLET PO (10:12)
[2023-09-05] MEDS: Doxazosin 4 MG Tablet PO (10:12)
[2023-09-05] MEDS: Tolterodine Tartrate 2 MG CAP.SA PO (10:12)
[2023-09-05] MEDS: guaiFENesin 1,200 MG Tablet 1200 MG PO (10:12)
[2023-09-05] MEDS: Potassium Chloride Oral Tablet 10 MEQ PO (10:12)
[2023-09-05] MEDS: Multivitamins,Ther W-Minerals Tablet 1 TABLET PO (10:12)
[2023-09-05] MEDS: DULoxetine Hcl 60 MG Capsule PO (10:13)
[2023-09-05] MEDS: Ascorbic Acid 500 MG Tablet 1000 MG PO (10:13)
[2023-09-05] MEDS: Gabapentin 300 MG Capsule PO (10:13)
[2023-09-05] MEDS: Cholecalciferol (VIT D3) 25 MCG TABLET (1,000 UNITS) PO (10:13)
[2023-09-05] MEDS: Losartan Potassium 100 MG Tablet PO (10:13)
[2023-09-05] MEDS: Isosorbide Mononitrate 60 MG Tablet PO (10:13)
[2023-09-05] MEDS: Insulin Glargine-YFGN 100 UNIT/ML Pen 10 UNIT SC (10:14)
[2023-09-05] MEDS: Calcium Carb/Vitamin D 1 TABLET Tablet PO (10:23)
[2023-09-05] MEDS: Pantoprazole Sodium 20 MG Tablet PO (10:23)
[2023-09-05] MEDS: Amiodarone 200 MG Tablet 100 MG PO (10:23)
== END 2023-09-05 12:26 | disposition home or self-care (01) | DRG 178 ==
LOC: ED 09-04 02:52 → ICU 09-04 07:29
PROVIDERS: Admitting Provider Internal Medicine; Emergency Provider Emergency Medicine; PCP Family Medicine; Visit Provider Internal Medicine
DX: U07.1 COVID-19 (principal); I48.20 Chronic atrial fibrillation, unspecified; C61 Malignant neoplasm of prostate; E11.22 Type 2 diabetes mellitus with diabetic chronic kidney disease; F03.90 Unspecified dementia, unspecified severity, without behavioral disturbance, psychotic disturbance, mood disturbance, and anxiety; N18.30 Chronic kidney disease, stage 3 unspecified; M06.9 Rheumatoid arthritis, unspecified; I12.9 Hypertensive chronic kidney disease with stage 1 through stage 4 chronic kidney disease, or unspecified chronic kidney disease; J45.20 Mild intermittent asthma, uncomplicated; I25.10 Atherosclerotic heart disease of native coronary artery without angina pectoris; E78.00 Pure hypercholesterolemia, unspecified; J20.8 Acute bronchitis due to other specified organisms; E66.9 Obesity, unspecified; R29.6 Repeated falls; Z66 Do not resuscitate; Z68.33 Body mass index [BMI] 33.0-33.9, adult; Z79.01 Long term (current) use of anticoagulants; Z79.51 Long term (current) use of inhaled steroids; Z79.84 Long term (current) use of oral hypoglycemic drugs; Z79.899 Other long term (current) drug therapy; Z86.16 Personal history of COVID-19; Z87.891 Personal history of nicotine dependence; Z80.42 Family history of malignant neoplasm of prostate
CPT/HCPCS: 36600; 71045; 80048; 82803; 82962; 83036; 83735; 83880; 84100; 85025; 87428; 94640; 99284; A4216

== ENCOUNTER → 2023-09-16 | Outpatient (CLI) | payer MEDICARE, SELFPAY ==
[2023-09-16 10:04] LABS: Albumin, Serum 2.7 g/dL (3.2-5.0); BUN 19 mg/dL (7-18); BUN/Creat Ratio 14.6 RATIO (10-20); Calcium,Total 7.9 mg/dL (8.5-10.1); Chloride 107 mmol/L (98-107); EST Glomerular Filtration Rate 57 mL/min (>60); Est Glom Filt Rate - Afr Amer 69 mL/min (>60); Glucose 170 mg/dL (74-106); Phosphorus 2.4 mg/dL (2.5-4.9); Potassium 3.6 mmol/L (3.5-5.1); Sodium Level 140 mmol/L (136-145)
[2023-09-16 10:34] LABS: Protein, Urine (Random) 63.7 mg/dL (<11.9); Protein:Creat Ratio 574 mg/g CRE (0-200)
== END | disposition home or self-care (01) ==
LOC: LAB 08:21
PROVIDERS: PCP Family Medicine; Referring Provider Internal Medicine Nephrology; Visit Provider Internal Medicine Nephrology
DX: E11.22 Type 2 diabetes mellitus with diabetic chronic kidney disease (principal); N18.9 Chronic kidney disease, unspecified
CPT/HCPCS: 36415; 80069; 82570; 84156

== ENCOUNTER 2023-09-20 12:36 | Inpatient (IN) | payer MEDICARE, SELFPAY ==
[2023-09-20] VITALS (12 sets, daily range): BP systolic 151–199; BP diastolic 73–91; PULSE 86–95; RESP 16–24; TEMP 36.2–37.1; O2SAT 92–96; BMI 34.0; BMI 34.2
--- NOTE | 2023-09-20 13:16 | EKG12_ITS ---
Test Reason : SOB Blood Pressure : / mmHG Vent. 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
--- NOTE | 2023-09-20 13:16 | RAD_ITS ---
STUDY: X-RAY CHEST REASON FOR EXAM: Male, 78 years old. Cough and shortness of breath. TECHNIQUE: PA and lateral views of the chest. COMPARISON: Comparison is made with prior study dated September 03, 2023. FINDINGS: EKG electrodes are seen. Findings suggestive of a new patchy infiltrate in the right lower lobe. The lungs are clear and expanded. There is no demonstrated pleural abnormality. Normal size heart. Normal mediastinum and corina. Normal visualized pulmonary arteries. There is atherosclerotic calcification of the aortic arch with tortuosity. There are degenerative changes of the visualized thoracic spine. Normal visualized ribs, clavicles, and shoulders. There is no demonstrated abnormality of the visualized soft tissue structures of the upper abdomen. RAD/Chest PA and Lateral IMPRESSION: Patchy right lower lobe infiltrate. Electronically Signed: Shad Macias MD at 14:13 EST ,
--- NOTE | 2023-09-20 13:18 | EDS_ITS ---
HPI HPI - URI History of Present Illness Chief Complaint: Shortness of Breath Informant: patient Onset/Context/Timing Onset: Days Context: Gradual Onset Timing: Continuous Current Severity: Mild Maximum Severity: Moderate Associated Symptoms Associated Symptoms: Positive for Productive Cough (Clear and white sputum.); Negative for Nausea, Vomiting or Diarrhea Narrative Narrative: 78-year-old male history of asthma. Patient was diagnosed with COVID 2 to 3 weeks ago. Today has had a cough with productive white to clear sputum. No hemoptysis. Only chest pain is with coughing. He has a history of A-fib and diabetes he is on Eliquis and has a history of prostate cancer. He denies any vomiting or diarrhea. No dysuria. Patient is not on home O2. Prior similar symptoms: Yes Recent Illness/Hospitalization: Yes ROS ROS ED ROS Narrative Productive cough. Shortness of breath. Review of Systems ROS Unobtainable: Denies due to encephalopathy Constitutional Constitutional ED: Denies chills or fever(s) Eyes Eyes: Denies blurry vision ENT ENT ED: Denies ear pain Cardiovascular Cardiovascular: Denies chest pain or palpitations Respiratory/Chest Respiratory/Chest: Reports cough and dyspnea Gastrointestinal Gastrointestinal: Denies abdominal pain, constipation, diarrhea, melena, nausea or vomiting Genitourinary Genitourinary ED: Denies dysuria or hematuria Musculoskeletal Musculoskeletal: Denies arthralgias or back pain Integumentary Denies abscess or Abrasions Neurologic Neurologic: Denies headache(s) Psychiatric Psychiatric: Denies anxiety or depression Endocrine Endocrinology: Denies cold intolerance Hematologic/Lymphatic Hematologic/Lymphatic: Denies easy bleeding Allergic/Immunologic Allergic/Immunologic ED: Denies mouth swelling, tongue swelling or urticaria [facility] Medical History Abnormal stress test Acute bronchitis with bronchospasm Acute respiratory insufficiency Ambulates with cane Anxiety Aortic stenosis Arthritis Asthma Asymptomatic hypertensive urgency Atherosclerotic heart disease of [place] coronary artery without angina pectoris Atrial fibrillation with RVR Back pain Bronchitis CAD in ey[place] artery Cancer Cardiology follow-up encounter Chronic anticoagulation Closed head injury Colitis Concussion Covid-19 COVID-19 virus infection CPAP (continuous positive airway pressure) dependence Dementia Depression Diabetes Diabetes Diverticula of colon DM2 (diabetes mellitus, type 2) Essential hypertension Excessive bleeding Former smoker Gastric reflux Heart failure High cholesterol History of atrial fibrillation History of echocardiogram History of edema History of renal disease History of steroid therapy History of stress test HTN (hypertension) Hyperlipidemia Hypertensive urgency Inflammatory bowel disease Injury of head and neck Intractable pain Kidney stones Loss of consciousness Nonrheumatic aortic (valve) stenosis NSVT (nonsustained ventricular tachycardia) SUPA (obstructive sleep apnea) Paroxysmal atrial fibrillation Prostate cancer Prostate disease Pulmonary hypertension Renal colic on left side Rheumatoid aortitis Rheumatoid arthritis Rhinovirus Sepsis Severe acute respiratory syndrome coronavirus 2 (SARS-CoV-2) infection ruled out Severe sepsis Sleep apnea SOB (shortness of breath) Ureterolithiasis Wears dentures Wears glasses Wears hearing aid Home Medications glimepiride 2 mg tablet 2 mg PO QHS diabetes 01/22/18 [History Last Taken 0 03/21/23] [id number] 300 mcg-K 60 mcg-lycop 600 mcg-lutein 300 mcg tablet (Centrum Silver Men) 1 ea PO DAILY supplement 09/17/18 [History Last Taken 03/21/23] duloxetine 60 mg capsule,delayed release (Cymbalta) 60 mg PO DAILY depression 06/02/19 [History Last Taken 03/21/23] buspirone 7.5 mg tablet 7.5 mg PO BID depression/anxiety 04/12/21 [History Last Taken 03/21/23] calcium carbonate 600 mg-vitamin D3 5 mcg (200 unit) tablet 1 tab PO DAILY supplement 12/21/21 [History Last Taken 03/21/23] latanoprost 0.005 % eye drops 1 drp LEFT EYE QPM eye health 12/22/21 [History Last Taken 03/20/23] gabapentin 600 mg tablet 300 mg PO BID neuropathy 01/26/22 [History Last Taken 03/21/23] carvedilol 25 mg tablet 25 mg PO BID HEART 10/02/22 [History Last Taken 08/07/23] cholecalciferol (vitamin D3) 25 mcg (1,000 unit) capsule 25 mcg PO DAILY SUPPLEMENT 10/02/22 [History Last Taken 10/04/22] doxazosin 4 mg tablet 4 mg PO BID BLOOD PRESSURE 10/02/22 [History Last Taken 03/21/23] esomeprazole magnesium 20 mg capsule,delayed release (Nexium) 20 mg PO DAILY GERD 10/02/22 [History Last Taken 08/07/23] loratadine 10 mg tablet 10 mg PO DAILY ALLERGIES 10/02/22 [History Last Taken 03/21/23] losartan 100 mg tablet 100 mg PO DAILY BLOOD PRESSURE 10/02/22 [History Last Taken 08/07/23] oxybutynin chloride 10 mg tablet,extended release 24 hr 10 mg PO DAILY bladder 10/04/22 [History Last Taken 03/21/23] timolol maleate 0.5 % eye drops 1 drp LEFT EYE DAILY EYE HEALTH 10/04/22 [History Last Taken 03/20/23] apixaban 5 mg tablet 5 mg PO BID afib #180 tabs 12/03/22 [Rx Last Taken 03/21/23] rosuvastatin 20 mg tablet 20 mg PO DAILY cholesterol 03/21/23 [History Last Taken 03/21/23] omega-3 fatty acids-vitamin E 1,000 mg capsule 1 cap PO DAILY Check with primary doctor 03/22/23 [History Last Taken 03/21/23] fluticasone furoate 200 mcg-vilanterol 25 mcg/dose inhalation powder (Breo Ellipta) 1 inh inhalation QDAY #60 ea 04/04/23 [Rx Last Taken Unknown] amlodipine 10 mg tablet 5 mg (1/2 x 10 mg) PO DAILY #90 tabs 05/08/23 [Rx Last Taken 08/07/23] triamcinolone acetonide 55 mcg nasal spray aerosol (Nasacort) 2 spray intranasal BID 05/21/23 [History Last Taken Unknown] infliximab 100 mg intravenous solution (Remicade) 100 mg IV .Q7W crohns 05/24/23 [History Last Taken Unknown] hydralazine 100 mg tablet 100 mg PO TID BLOOD PRESSURE #270 tabs 06/14/23 [Rx Last Taken Unknown] isosorbide mononitrate 60 mg tablet,extended release 24 hr 60 mg PO BID BLOOD PRESSURE #90 tabs 07/25/23 [Rx Last Taken 08/07/23] montelukast 10 mg tablet 10 mg PO QPM #30 tabs 07/25/23 [Rx Last Taken Unknown] amiodarone 200 mg tablet See Rx Instructions .Route .COMPLEX #45 TABLETS 08/28/23 [Rx Last Taken Unknown] potassium chloride 10 mEq tablet,extended release(part/cryst) 10 meq PO DAILY supplement 09/04/23 [History Last Taken Unknown] dexamethasone 6 mg tablet 6 mg PO DAILY #7 tabs 09/05/23 [Rx Last Taken Unknown] doxycycline hyclate 100 mg tablet 100 mg PO BID 14 days #28 tabs 09/05/23 [Rx Last Taken Unknown] guaifenesin 1,200 mg tablet, extended release 12 hr (Mucus Relief ER) 1,200 mg PO BID #20 tabs 09/05/23 [Rx Last Taken Unknown] Allergy/AdvReac Type Severity Reaction Status Date / Time aspirin Allergy Severe Mouth Verified 09/20/23 12:39 swelling donepezil [From Aricept] AdvReac Severe Swelling Verified 09/20/23 12:39 minoxidil AdvReac Severe swelling Verified 09/20/23 12:39 morphine AdvReac Severe UNABLE TO Verified 09/20/23 12:39 URINATE Family History Mother Heart disease Diabetes Father Heart disease Lung disease Brother Heart disease Lung disease Cancer prostate, pancreatic Sister Diabetes Cancer uterine Surgical History Cervical vertebral fusion History of back surgery History of bilateral knee replacement History of cardiac catheterization History of left heart catheterization (LHC) (~12/22/21) History of prostate biopsy History of removal of cyst Hx of colectomy Hx of cystoscopy Hx of surgical procedure Social History Smoking Status: Former smoker how long ago did patient quit smokin, 2ppd second hand exposure: Yes alcohol intake: never substance use type: does not use caffeine: Yes Type: coffee Number of servings: 2 EXAM Physical Exam Narrative Exam Narrative: 78-year-old male no acute distress. Vital signs stable afebrile. Pulse ox 96% on room air. He is coughing frequently. Currently there is no family present in the room. H EENT exam unremarkable. Neck nontender. No JVD. Lungs coarse breath sounds bilaterally. Rhonchorous. No significant wheezing. No rales. Heart regular rhythm rate of the 90s no murmur. Chest were nontender. Abdomen soft nontender. Moving all 4 extremities. Calves are nontender without edema or cords. Neurologically patient is awake and alert with no focal motor deficits. Const Vital Signs: 09/20/23 12:37 09/20/23 13:30 09/20/23 12:39 Temperature 97.2 F L Temperature Source Temporal Pulse Rate 94 88 Respiratory Rate 18 16 Respiratory Effort Short of Breath Labored Blood Pressure 199/89 H Blood Pressure Mean 125 Pulse Ox 96 Oxygen Delivery Method Room Air Room Air Positive well nourished and well developed; Negative for cachectic or contractures General Appearance ED: well developed and NAD; Negative for cachectic, contractures, cyanotic, diaphoretic or pallor Nutritional Appearance: Negative for cachectic HEENT Reports moist mucous membranes; Denies dry mucous membranes normocephalic and atraumatic; Negative for scalp tenderness Face and Sinus: Negative for sinus tenderness Mouth ED: No dry mucous membranes Mouth: No dry mucous membranes Throat: posterior oropharynx normal Eyes PERRL and EOMs intact bilaterally General Eye ED: Negative for pale conjunctiva or scleral icterus Neck no lymphadenopathy, supple, no meningeal signs and no JVD General: Negative for anterior neck swelling or lymphadenopathy Resp normal respiratory effort and No clear to auscultation bilaterally Auscultation: rhonchi; Negative for rales, wheezes or diminished lung sounds Cardio S1 normal heart sound, S2 normal heart sound and no murmurs Rate: regular rate Rhythm: regular rhythm GI non-tender, non-distended and no masses Inspection: Negative for abdominal distention Auscultation: normoactive bowel sounds Palpation: soft; Negative for tender or guarding Back/Spine no CVA tenderness and normal ROM General Back: Negative for CVA tenderness Cervical Spine: Negative for cervical spine tenderness Thoracic Spine / Upper Back: Negative for thoracic spinal tenderness Lumbar Spine / Lower Back: Negative for lumbar spinal tenderness Extremity normal to inspection General Extremety ED: Negative for cyanosis or tenderness General Extremity: Negative for cyanosis Neuro oriented x3 and CN's II-XII intact bilaterally Sensorium / Orientation: alert, oriented to person, oriented to place and oriented to time; Negative for orientation impaired, lethargic or stuporous Motor Exam: strength 5/5 throughout Psych mental status grossly normal Appearance: Negative for other Attitude: No agitated Mood & Affect: Negative for depressed, anxious or tearful Skin General Skin Exam: Negative for jaundice or pallor Lesions: no lesions Rashes: no rashes Trauma: Negative for abrasion or laceration MDM MDM MDM Narrative Medical decision making narrative: 78-year-old male history of asthma. Diagnosed with COVID 2 to 3 weeks ago. Continues to be short of breath with a productive cough. He is on the blood thinner Eliquis. Chest x-ray and labs being obtained. Concern for possible pneumonia versus other etiologies. Repeat exam at 2:27 PM patient doing well. I discussed with him his test results. He said he is too weak to go home. States he has been falling. I will speak to the hospitalist about admission for right lower lobe pneumonia and generalized weakness. History & Record Review Discussion w/independent historian: Patient Additional record(s) reviewed:: Prior inpatient record, Prior outpatient record, Prior ED visit, Prior labs and No prior records Lab Data Attestation: I reviewed the patient's lab results. Lab results narrative: CBC shows a white count of 5.8. H&H 11.3 and 33 which is patient's baseline. Platelets 123 electrolytes show a gap of 5 BUN and creatinine is 16 and 1.3. Glucose 176. Influenza and RSV are both negative. Chest x-ray looks like a right lower lobe pneumonia. Labs: Laboratory Results - last 24 hr 09/20/23 13:35 WBC 5.8 RBC 3.72 L Hgb 11.3 L Hct 33.8 L MCV 90.9 MCH 30.4 MCHC 33.4 RDW Std Deviation 50.2 H RDW Coeff of Azeem 15.1 H Plt Count 123 L MPV 10.6 Sodium 141 Potassium 3.5 Chloride 109 H Carbon Dioxide 27.0 Anion Gap 5 BUN 16 Creatinine 1.37 H Estim Creat Clear Calc 40.88 Est GFR (MDRD) Af Amer 64 Est GFR (MDRD) Non-Af 53 L BUN/Creatinine Ratio 11.7 Glucose 176 H Calcium 8.7 Radiography Chest X-Ray - ED: 2 View, Read by ED Physician, Mediastinum, Bony Structures, Chronic Changes and Right Infiltrate Diagnostic Testing: Clinical Impression(s) from Imaging Studies Chest X-Ray 09/20/23 13:16 IMPRESSION: Patchy right lower lobe infiltrate. Electronically Signed: Shad Macias MD at 14:13 EST , Chest x-ray, 2 views, AP and lateral, interpreted by myself the radiologist look s like a right lower lobe infiltrate/pneumonia. Discharge Plan Triage Chief Complaint: Shortness of Breath ED Provider: Jonathan Lopez Dx/Rx/DC Orders Prescriptions: No Action duloxetine [Cymbalta] 60 mg capsule,delayed release(DR/EC) 60 mg PO DAILY gabapentin 600 mg tablet 300 mg PO BID fluticasone furoate-vilanterol [Breo Ellipta] 200-25 mcg/dose blister with device 1 inh inhalation QDAY Qty: 60 6RF Rx Instructions: after inhalation, rinse mouth with water and spit out; do not swallow triamcinolone acetonide [Nasacort] 55 mcg aerosol,spray 2 spray intranasal BID Rx Instructions: administer into each nostril glimepiride 2 MG tablet 2 mg PO QHS Patient Comments: Centrum Silver Men 1 EACH tablet 1 ea PO DAILY buspirone 7.5 mg tablet 7.5 mg PO BID calcium carbonate-vitamin D3 600 mg-5 mcg (200 unit) Tablet 1 tab PO DAILY latanoprost 0.005 % Drops 1 drp LEFT EYE QPM carvedilol 25 mg tablet 25 mg PO BID losartan 100 mg tablet 100 mg PO DAILY loratadine 10 mg Tablet 10 mg PO DAILY esomeprazole magnesium [Nexium] 20 mg Capsule,Delayed Release(Dr/Ec) 20 mg PO DAILY cholecalciferol (vitamin D3) 25 mcg (1,000 unit) Capsule 25 mcg PO DAILY doxazosin 4 mg tablet 4 mg PO BID oxybutynin chloride 10 mg tablet extended release 24hr 10 mg PO DAILY timolol maleate 0.5 % drops 1 drp LEFT EYE DAILY rosuvastatin 20 mg tablet 20 mg PO DAILY omega-3 fatty acids-vitamin E 1,000 mg Capsule 1 cap PO DAILY infliximab [Remicade] 100 mg recon soln 100 mg IV .Q7W Patient Comments: INFUSE 10MG/KG IV EVERY 7 WEEKS. DUE ON Saturday09/06/23 potassium chloride 10 mEq tablet,ER particles/crystals 10 meq PO DAILY guaifenesin [Mucus Relief ER] 1,200 mg Tablet Extended Release 12hr 1,200 mg PO BID Qty: 20 0RF doxycycline hyclate 100 mg tablet 100 mg PO BID 14 Days Qty: 28 0RF dexamethasone 6 mg tablet 6 mg PO DAILY Qty: 7 0RF apixaban 5 mg tablet 5 mg PO BID Qty: 180 3RF amlodipine 10 mg tablet 5 mg PO DAILY Qty: 90 3RF hydralazine 100 mg tablet 100 mg PO TID Qty: 270 3RF montelukast 10 mg tablet 10 mg PO QPM Qty: 30 3RF isosorbide mononitrate 60 mg tablet extended release 24 hr 60 mg PO BID Qty: 90 3RF amiodarone 200 mg tablet See Rx Instructions .ROUTE .COMPLEX Qty: 45 3RF Dose Instruction: Take 1/2 (one-half) tablet by mouth once daily Patient Comments: PT IS NOT SURE OF THE DOSAGE Rx Instructions: Take 1/2 (one-half) tablet by mouth once daily Primary Care Provider: Jayme Yang Referrals: Jayme Yang MD [Primary Care Provider] -
[2023-09-20] MEDS: Ipratropium/Albuterol Sulfate 3 ML AMPUL.NEB INHALATION ×2 (13:28→19:34)
[2023-09-20 13:51] LABS: Hematocrit 33.8 % (40-54); Hemoglobin 11.3 g/dL (13.0-16.5); Mean Corp Hgb Conc 33.4 g/dL (32-36); Mean Corpuscular Hgb 30.4 pg (27.0-32.0); Mean Corpuscular Volume 90.9 fL (80-94); Mean Platelet Vol. 10.6 fl (6.2-12.0); Platelet Count 123 K/mm3 (150-450); RBC Distribution Width CV 15.1 % (11.6-14.6); RBC Distribution Width SD 50.2 fl (35.1-43.9); Red Blood Count 3.72 M/mm3 (4.6-6.2); White Blood Count 5.8 K/mm3 (4.4-11.0)
[2023-09-20 13:55] LABS: Anion Gap 5 (5-15); BUN 16 mg/dL (7-18); BUN/Creat Ratio 11.7 RATIO (10-20); Calcium,Total 8.7 mg/dL (8.5-10.1); Chloride 109 mmol/L (98-107); Creatinine, Serum 1.37 mg/dL (0.70-1.30); EST Glomerular Filtration Rate 53 mL/min (>60); Est Glom Filt Rate - Afr Amer 64 mL/min (>60); Estimated Creatinine Clearance 40.88 ml/min; Glucose 176 mg/dL (74-106); Potassium 3.5 mmol/L (3.5-5.1); Sodium Level 141 mmol/L (136-145)
--- NOTE | 2023-09-20 15:17 | NURSING ---
MED SURG OBS TERELETSKY RLL PNEUMONIA, WEAKNESS, FALLS, AFIB, HX DM, ANTICOAGULATION
--- OUTSIDE RECORDS SUMMARY | 2023-09-20 15:28 | XMS RPT_ITS | CCD ---
Author Name Unknown Address [address] [place] [address] Organization [facility] Care Team Providers Care Turner Machine Name Role Phone Anabelle Mead Unavailable Asuncion CUNNINGHAM, Yasmin Ambrocio Unavailable Unavailable Gricel CUNNINGHAM, Faye Curry Unavailable Asuncion CUNNINGHAM, Yasmin Ambrocio Unavailable Unavailable DeFinis, Harumi Y Unavailable Unavailable Chong, Kaylene Unavailable Unavailable Allergies Allergy Classification Reported Allergen(s) Allergy Type Date of Onset Reaction(s) Facility (6 sources) aspirin drug allergy 12-12-2016 Mouth Swelling [facility] Work Phone: (6 sources) morphine drug allergy 12-12-2016 GI Problems [facility] Work Phone: Medications Completed/Discontinued Medications Medication Drug Class(es) Dates Sig (Normalized) Sig (Original) AMLODIPINE BESY-BENAZEPRIL HCL (6 sources) Dihydropyridine Calcium Channel Kenji, Angiotensin Converting Enzyme Inhibitor Start: 12-12-2016 take 1 tablet by mouth once daily LOTREL 10-40 MG CAPS One tablet by mouth daily AMLODIPINE BESY-BENAZEPRIL HCL [id number] Faye Monsalve RN Problems Active Problems Problem Classification Problem Date Documented Da te Episodic/Chronic Cardiac dysrhythmias (4 sources) Conduction disorder of the heart; Translations: [Cardiac arrhythmia, unspecified] Onset: 12-13-2016 12-13-2016 Chronic Conduction disorders (8 sources) Sinoatrial block; 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] Onset: 12-12-2016 12-12-2016 Chronic Diabetes mellitus without complication (6 sources) Diabetes mellitus; Translations: [Type 2 diabetes mellitus without complications] Onset: 12-12-2016 12-12-2016 Chronic Disorders of lipid metabolism (6 sources) Hyperlipidemia; Translations: [Hyperlipidemia, unspecified] Onset: 12-12-2016 12-12-2016 Chronic Essential hypertension (6 sources) Benign hypertension; Translations: [Essential (primary) hypertension] Onset: 12-12-2016 12-12-2016 Chronic Other nutritional; endocrine; and metabolic disorders (6 sources) Body mass index (BMI) 34.0-34.9, adult; Translations: [Body mass index (BMI) 34.0-34.9, adult] Onset: 12-13-2016 12-13-2016 Chronic Unclassified (6 sources) Obstructive sleep apnea syndrome; Translations: [Obstructive sleep apnea (adult) (pediatric)] Onset: 12-12-2016 12-12-2016 Chronic Past or Other Problems Problem Classification Problem Date Documented Da te Episodic/Chronic Fluid and electrolyte disorders (6 sources) Hypokalemia; Translations: [Hypokalemia] Onset: 12-12-2016 12-12-2016 Episodic Syncope (6 sources) Syncope; Translations: [Syncope and collapse] Onset: 12-12-2016 12-12-2016 Episodic Unclassified (6 sources) Family history of alcoholism; Translations: [Family history of alcohol abuse and dependence] 12-12-2016 Episodic Results Test Name Value Interpretation Reference Range Facil ity Vital Signs Date Time Vital Sign Value Performing Clinician Amira frank 03-22-2017 09:32-0400 BMI (Body Mass Index) 34.12 kg/m2 Kaylene Fernandes [facility] Work Phone: 03-22-2017 09:32-0400 BP Diastolic 88 mm[Hg] Kaylene Chong [facility] Work Phone: 03-22-2017 09:32-0400 BP Systolic 146 mm[Hg] Kaylene Chong [facility] Work Phone: 03-22-2017 09:32-0400 Height 167.64 cm Kaylene Chong [facility] Work Phone: 03-22-2017 09:32-0400 Pulse (Heart Rate) 72 /min Kaylene Chong [facility] Work Phone: 03-22-2017 09:32-0400 Respiratory Rate 20 /min Kaylene Chong [facility] Work Phone: 03-22-2017 09:32-0400 Weight 95.89 kg Kaylene Chong [facility] Work Phone: 12-13-2016 14:06-0400 Heart rate 71 /min Natalee Hernandez [facility] Work Phone: 12-13-2016 13:33-0400 BMI (Body Mass Index) 34.21 kg/m2 Yasmin Roland RN [facility] Work Phone: 12-13-2016 13:33-0400 BP Diastolic 78 mm[Hg] Yasmin Roland RN [facility] Work Phone: 12-13-2016 13:33-0400 BP Systolic 138 mm[Hg] Yasmin Roland RN [facility] Work Phone: 12-13-2016 13:33-0400 Height 167.64 cm Yasmin Roland RN [facility] Work Phone: 12-13-2016 13:33-0400 Pulse (Heart Rate) 80 /min Yasmin Roland RN [facility] Work Phone: 12-13-2016 13:33-0400 Respiratory Rate 16 /min Yasmin Roland RN [facility] Work Phone: 12-13-2016 13:33-0400 Weight 96.16 kg Yasmin Roland RN [facility] Work Phone: Procedures Date Procedure Procedure Detail Performing Clinician Start: 02-22-2020 Antibody screen Plan of Treatment Date Care Activity Detail Author Start: 11-04-2017 End: 11-04-2017 Appointment Appointment [facility] Work Phone: Start: 03-22-2017 End: 03-22-2017 Appointment Appointment [facility] Work Phone: Start: 03-22-2017 End: 03-22-2017 Appointment Appointment [facility] Work Phone: Start: 03-22-2017 End: 03-22-2017 Follow Up Appt 6 months Follow Up Appt 6 months [facility] Work Phone: Start: 03-22-2017 End: 03-22-2017 PFM PFM [facility] Work Phone: Start: 12-13-2016 End: 02-07-2017 *BMP *BMP [facility] Work Phone: Start: 12-13-2016 End: 02-07-2017 CBC W Auto Differential panel - Blood *CBC without Diff [facility] Work Phone: Start: 12-13-2016 End: 12-13-2016 Electrocardiogram, complete EKG (In office) [facility] Work Phone: Start: 12-13-2016 End: 12-13-2016 Follow Up Appt 3 months Follow Up Appt 3 months [facility] Work Phone: Start: 12-13-2016 End: 12-13-2016 MMM MMM [facility] Work Phone: Start: 12-13-2016 End: 12-13-2016 Remote 30 day ecg rev/report 30 Day Holter Monitor [facility] Work Phone: Start: 12-13-2016 End: 12-13-2016 Tilt table evaluation Tilt Table Test [facility] Work Phone: Summary Purpose Family History No Family History Records FoundNo Family History Records Found Advance Directives No Advanced Directives Records FoundNo Advanced Directives Records Found Hospital Course Note HNO ID: [id number] Author: Erica Greco MD Service: Hospital Medicine Author Type: Physician Type: Discharge Summary Filed: 02/24/2020 2:17 PM Note Text: DISCHARGE SUMMARY PATIENT NAME: Megan Gimenez Code Status: DNR-CCA Highest Readmission Risk Score: 24 The 30 day readmissions risk score is derived from an internally validated risk model which evaluates patient level characteristics, utilization history, medication orders and lab results up until the day of discharge. Patients with a score of 40 or above are considered highest risk for readmission. Specific patient level drivers will be listed at the bottom of the summary. Admission Information Admission Information ADMIT DATE: 02/22/2020 DISCHARGE DATE: 02/24/2020 MY DOCTORS AND MEDICAL TEAM: My Main Hospital Doctor: Oneida Greco, * Primary Care Provider: Jayme Yang MD My Medical Team Members: Treatment Team: Attending Provider: Oneida Greco MD Consulting: Arnaud Llanes MD Primary Serv (more content not included)... Additional Source Comments (unrecognized sect ion and content) No Status Records FoundNo Status Records Found INFORMATION SOURCE (unrecogn ized section and content) DATE CREATED AUTHOR AUTHOR'S ORGANIZ ATION 02/25/2020 [facility] FOR RECORDS PERTAINING TO PATIENTS WHO ARE OR HAVE BEEN ENROLLED IN A CHEMICAL DEPENDENCY/SUBSTANCEABUSE PROGRAM, SOME INFORMATION MAY BE OMITTED. This clinical summary was aggregated from multiple sources. Caution should be exercised in using it in the provision of clinical care. This summary normalizes information from multiple sources, and as a consequence, information in this document may materially change the coding, format and clinical context of patient data. In addition, data may be omitted in some cases. CLINICAL DECISIONS SHOULD BE BASED ON THE PRIMARY CLINICAL RECORDS. [facility] [employer] [facility]. provides no warranty or guarantee of the accuracy or completeness of information in this document.
--- OUTSIDE RECORDS SUMMARY | 2023-09-20 16:31 | XMS RPT_ITS | CCD ---
Author Name Unknown Address [address] [place] [address] Organization [facility] Care Team Providers Care Tracing Lathe Set Up Operator Name Role Phone Anabelle Mead Unavailable Asuncion CUNNINGHAM, Yasmin Ambrocio Unavailable Unavailable Gricel CUNNINGHAM, Faye Curry Unavailable Asuncion CUNNINGHAM, Yasmin Ambrocio Unavailable Unavailable DeFinis, Harumi Y Unavailable Unavailable Chong, Kaylene Unavailable Unavailable Allergies Allergy Classification Reported Allergen(s) Allergy Type Date of Onset Reaction(s) Facility (6 sources) aspirin drug allergy 12-12-2016 Mouth Swelling [facility] Work Phone: (6 sources) morphine drug allergy 12-12-2016 GI Problems [facility] Work Phone: Medications Completed/Discontinued Medications Medication Drug Class(es) Dates Sig (Normalized) Sig (Original) AMLODIPINE BESY-BENAZEPRIL HCL (6 sources) Dihydropyridine Calcium Channel Kenji, Angiotensin Converting Enzyme Inhibitor Start: 12-12-2016 take 1 tablet by mouth once daily LOTREL 10-40 MG CAPS One tablet by mouth daily AMLODIPINE BESY-BENAZEPRIL HCL [id number] Faye Monsalve RN Problems Active Problems Problem [...] (Body Mass Index) 34.12 kg/m2 Kaylene Fernandes [facility] Work Phone: 03-22-2017 09:32-0400 BP Diastolic 88 mm[Hg] Kaylene Chong [facility] Work Phone: 03-22-2017 09:32-0400 BP Systolic 146 mm[Hg] Kaylene Chong [facility] Work Phone: 03-22-2017 09:32-0400 Height 167.64 cm Kaylene Chong [facility] Work Phone: 03-22-2017 09:32-0400 Pulse (Heart Rate) 72 /min Kaylene Chong [facility] Work Phone: 03-22-2017 09:32-0400 Respiratory Rate 20 /min Kaylene Chong [facility] Work Phone: 03-22-2017 09:32-0400 Weight 95.89 kg Kaylene Chong [facility] Work Phone: 12-13-2016 14:06-0400 Heart rate 71 /min Natalee Hernandez [facility] Work Phone: 12-13-2016 13:33-0400 BMI (Body Mass Index) 34.21 kg/m2 Yasmin Roland RN [facility] Work Phone: 12-13-2016 13:33-0400 BP Diastolic 78 mm[Hg] Yasmin Roland RN [facility] Work Phone: 12-13-2016 13:33-0400 BP Systolic 138 mm[Hg] Yasmin Roland RN [facility] Work Phone: 12-13-2016 13:33-0400 Height 167.64 cm Yasmin Roland RN [facility] Work Phone: 12-13-2016 13:33-0400 Pulse [...] Phone: Start: 03-22-2017 End: 03-22-2017 PFM PFM [facility] Work Phone: Start: 12-13-2016 End: 02-07-2017 *BMP *BMP [facility] Work Phone: Start: 12-13-2016 End: 02-07-2017 CBC W Auto Differential panel - Blood *CBC without Diff [facility] Work Phone: Start: 12-13-2016 End: 12-13-2016 Electrocardiogram, complete EKG (In office) [facility] Work Phone: Start: 12-13-2016 End: 12-13-2016 Follow Up Appt 3 months Follow Up Appt 3 months [facility] Work Phone: Start: 12-13-2016 End: 12-13-2016 MMM MMM [facility] Work Phone: Start: 12-13-2016 End: 12-13-2016 Remote 30 day ecg rev/report 30 Day Holter Monitor [facility] Work Phone: Start: 12-13-2016 End: 12-13-2016 Tilt table evaluation Tilt Table Test [facility] Work Phone: Summary Purpose Family History No Family History Records FoundNo Family History Records Found Advance Directives No Advanced Directives Records FoundNo Advanced Directives Records Found Hospital Course Note HNO ID: [id number] Author: Erica Greco MD Service: Hospital Medicine [...] AUTHOR AUTHOR'S ORGANIZ ATION 02/25/2020 [facility] FOR RECORDS PERTAINING TO PATIENTS WHO [...] BE BASED ON THE PRIMARY CLINICAL RECORDS. [facility] provides no warranty or guarantee of the accuracy or completeness of information in this document.
[2023-09-20] MEDS: Insulin Lispro 100 UNIT/ML INSULN.PEN SC (16:52)
[2023-09-20] MEDS: Acetaminophen 325 MG Tablet 650 MG PO ×2 (16:52→23:15)
[2023-09-20 17:13] LABS: Bedside Glucose 211 mg/dL (74-106)
[2023-09-20] MEDS: levoFLOXacin IV 750 MG/150 ML BAG 100 MG IV (17:23)
[2023-09-20] MEDS: 0.9% Normal Saline (250mL Bag) 250 ML 15 ML IV (17:23)
--- NOTE | 2023-09-20 17:28 | HP.PCM.HOS_ITS ---
HPI - General General Date of Admission: 09/20/23 Date of Service: 09/20/23 Chief Complaint: Cough, generalized weakness HPI Narrative MEGAN HOLLOWAY, is a 78 M who presents to the emergency room at [facility], he states he has been very weak at home and he has a persistent cough that is productive of yellow and green sputum. Patient was discharged from the hospital earlier this month with a COVID-19 diagnosis. Labs performed in the emergency room included a CBC which was remarkable for hemoglobin of 11.3, patient's platelet count was slightly low at 123,000, patient's white blood cell count was normal. Chemistry panel was remarkable for creatinine 1.37, glucose was 176. Patient's pulse ox on room air was 92 Chest x-ray showed a right lower lobe infiltrate. Due to the patient's weakness, he will be admitted to [place] [address] for community-acquired pneumonia and generalized weakness, he will be seen by PT and OT, he will be placed on Levaquin for the pneumonia. [facility] Medical History (Updated 09/20/23 @ 16:08 by Khalida Jones) Abnormal stress test Acute bronchitis with bronchospasm Acute respiratory insufficiency Ambulates with cane Anxiety Aortic stenosis Arthritis Asthma Asymptomatic hypertensive urgency Atherosclerotic heart disease of inupiat coronary artery without angina pectoris Atrial fibrillation with RVR Back pain BiPAP (biphasic positive airway pressure) dependence Bronchitis CAD in inupiat artery Cancer Cardiology follow-up encounter Chronic anticoagulation Closed head injury Colitis Concussion Covid-19 COVID-19 virus infection CPAP (continuous positive airway pressure) dependence Dementia Depression Diabetes Diabetes Diverticula of colon DM2 (diabetes mellitus, type 2) Essential hypertension Excessive bleeding Former smoker Gastric reflux Heart failure High cholesterol History of atrial fibrillation History of echocardiogram History of edema History of renal disease History of steroid therapy History of stress test HTN (hypertension) Hyperlipidemia Hypertensive urgency Inflammatory bowel disease Injury of head and neck Intractable pain Kidney stones Loss of consciousness Nonrheumatic aortic (valve) stenosis NSVT (nonsustained ventricular tachycardia) SUPA (obstructive sleep apnea) Paroxysmal atrial fibrillation Prostate cancer Prostate disease Pulmonary hypertension Renal colic on left side Rheumatoid aortitis Rheumatoid arthritis Rhinovirus Sepsis Severe acute respiratory syndrome coronavirus 2 (SARS-CoV-2) infection ruled out Severe sepsis Sleep apnea SOB (shortness of breath) Ureterolithiasis Wears dentures Wears glasses Wears hearing aid Home Medications glimepiride 2 mg tablet 2 mg PO QHS diabetes 01/22/18 [History Last Taken 09/19/23] duloxetine 60 mg capsule,delayed release (Cymbalta) 60 mg PO DAILY depression 06/02/19 [History Last Taken 09/20/23] buspirone 7.5 mg tablet 7.5 mg PO BID depression/anxiety 04/12/21 [History Last Taken 09/20/23] latanoprost 0.005 % eye drops 1 drp LEFT EYE QPM eye health 12/22/21 [History Last Taken 03/20/23] gabapentin 600 mg tablet 600 mg PO BID neuropathy 01/26/22 [History Last Taken 09/20/23] carvedilol 25 mg tablet 25 mg PO BID HEART 10/02/22 [History Last Taken 09/20/23] doxazosin 4 mg tablet 4 mg PO BID BLOOD PRESSURE 10/02/22 [History Last Taken 09/20/23] losartan 100 mg tablet 100 mg PO DAILY BLOOD PRESSURE 10/02/22 [History Last Taken 09/20/23] oxybutynin chloride 10 mg tablet,extended release 24 hr 10 mg PO DAILY bladder 10/04/22 [History Last Taken 09/20/23] timolol maleate 0.5 % eye drops 1 drp LEFT EYE DAILY EYE HEALTH 10/04/22 [History Last Taken 03/20/23] apixaban 5 mg tablet 5 mg PO BID afib #180 tabs 12/03/22 [Rx Last Taken 09/20/23] rosuvastatin 20 mg tablet 10 mg PO DAILY cholesterol 03/21/23 [History Last Taken 09/20/23] fluticasone furoate 200 mcg-vilanterol 25 mcg/dose inhalation powder (Breo Ellipta) 1 inh inhalation QDAY #60 ea 04/04/23 [Rx Last Taken 09/20/23] infliximab 100 mg intravenous solution (Remicade) 100 mg IV .Q7W crohns 05/24/23 [History Last Taken 09/04/23] hydralazine 100 mg tablet 100 mg PO TID BLOOD PRESSURE #270 tabs 06/14/23 [Rx Last Taken 09/20/23] isosorbide mononitrate 60 mg tablet,extended release 24 hr 60 mg PO BID BLOOD PRESSURE #90 tabs 07/25/23 [Rx Last Taken 09/20/23] montelukast 10 mg tablet 10 mg PO QPM #30 tabs 07/25/23 [Rx Last Taken 09/20/23] amiodarone 200 mg tablet See Rx Instructions .Route .COMPLEX #45 TABLETS 08/28/23 [Rx Last Taken 09/20/23] potassium chloride 10 mEq tablet,extended release(part/cryst) 10 meq PO DAILY supplement 09/04/23 [History Last Taken 09/20/23] guaifenesin 1,200 mg tablet, extended release 12 hr (Mucus Relief ER) 1,200 mg PO BID #20 tabs 09/05/23 [Rx Last Taken 09/20/23] amlodipine 10 mg tablet 10 mg PO DAILY 09/20/23 [History Last Taken 09/20/23] quetiapine 25 mg tablet 25 mg PO DAILY 09/20/23 [History Last Taken 09/20/23] Allergy/AdvReac Type Severity Reaction Status Date / Time aspirin Allergy Severe Mouth Verified 09/20/23 12:39 swelling donepezil [From Aricept] AdvReac Severe Swelling Verified 09/20/23 12:39 minoxidil AdvReac Severe swelling Verified 09/20/23 12:39 morphine AdvReac Severe UNABLE TO Verified 09/20/23 12:39 URINATE Family History Mother Heart disease Diabetes Father Heart disease Lung disease Brother Heart disease Lung disease Cancer prostate, pancreatic Sister Diabetes Cancer uterine Surgical History Cervical vertebral fusion History of back surgery History of bilateral knee replacement History of cardiac catheterization History of left heart catheterization (LHC) (~12/22/21) History of prostate biopsy History of removal of cyst Hx of colectomy Hx of cystoscopy Hx of surgical procedure Social History Smoking Status: Former smoker how long ago did patient quit smokin, 2ppd second hand exposure: Yes alcohol intake: never substance use type: does not use caffeine: Yes Type: coffee Number of servings: 2 ROS Constitutional Constitutional: Denies anorexia, change in weight, fever(s), night sweats or weakness Eyes Eyes: Denies blurry vision, change in vision, discharge from eye(s) or eye pain Cardiovascular Cardiovascular: Reports dyspnea on exertion; Denies chest pain, claudication, edema or palpitations Respiratory/Chest Respiratory/Chest: Reports cough, dyspnea, productive cough and shortness of breath with exertion; Denies hemoptysis or shortness of breath at rest Gastrointestinal Gastrointestinal: Denies abdominal pain, constipation, diarrhea, hematemesis, hematochezia, melena, nausea or vomiting Genitourinary Genitourinary: Denies dysuria, hematuria, urinary frequency, urinary hesitancy, urinary incontinence or urinary urgency Musculoskeletal Musculoskeletal: Denies back pain, joint pain, joint stiffness, joint swelling, myalgias or neck pain Neurologic Neurologic: Denies abnormal gait, abnormal speech, dizziness, focal weakness, headache(s), loss of vision, numbness, other visual disturbances, paresthesias, syncope or tingling Psychiatric Psychiatric: Denies anxiety, cognitive impairment, depression, irritability, mood swings or suicidal ideation Endocrine Endocrinology: Denies change in body appearance, cold intolerance, excessive sweating, heat intolerance, polydipsia or polyuria Hematologic/Lymphatic Hematologic/Lymphatic: Denies none, anemia, easy bleeding, easy bruising or lymphadenopathy Allergic/Immunologic Allergic/Immunologic: Denies rhinitis, urticaria, eczemia or asthma Vital Signs Vital Signs Vital Signs: 09/20/23 12:37 09/20/23 13:30 09/20/23 12:39 Temperature 97.2 F L Temperature Source Temporal Pulse Rate 94 88 Pulse Strength Respiratory Rate 18 16 Respiratory Effort Short of Breath Labored Respiratory Depth Respiratory Pattern Blood Pressure 199/89 H Blood Pressure Mean 125 Blood Pressure Source Blood Pressure Position Blood Pressure Location Pulse Ox 96 Oxygen Delivery Method Room Air Room Air 09/20/23 14:38 09/20/23 14:40 09/20/23 15:18 Temperature Temperature Source Pulse Rate 89 89 Pulse Strength Respiratory Rate 20 H 20 H Respiratory Effort Respiratory Depth Respiratory Pattern Blood Pressure 190/88 H 151/73 H Blood Pressure Mean 122 99 Blood Pressure Source Blood Pressure Position Blood Pressure Location Pulse Ox 92 93 Oxygen Delivery Method 09/20/23 15:45 09/20/23 16:09 09/20/23 16:32 Temperature 98.1 F 97.5 F L Temperature Source Oral Pulse Rate 91 92 Pulse Strength Respiratory Rate 16 20 H Respiratory Effort Normal Respiratory Depth Normal Respiratory Pattern Normal Blood Pressure 159/89 H 183/87 H Blood Pressure Mean 112 119 Blood Pressure Source Monitor Blood Pressure Position Sitting Blood Pressure Location Right Arm Pulse Ox 95 Oxygen Delivery Method Room Air Room Air 09/20/23 16:32 09/20/23 17:03 Temperature 98.1 F Temperature Source Temporal Pulse Rate 95 Pulse Strength Normal (2+) Respiratory Rate 16 Respiratory Effort Respiratory Depth Respiratory Pattern Blood Pressure 182/91 H Blood Pressure Mean 121 Blood Pressure Source Monitor Blood Pressure Position Sitting Blood Pressure Location Right Arm Pulse Ox 92 Oxygen Delivery Method Room Air Weight Weight: 99.1 kg Body Mass Index (BMI) 34.2 Physical Exam Const alert and no apparent distress General Appearance: cooperative, well kempt and well developed Orientation / Consciousness: awake, oriented to person and oriented to place HEENT normocephalic, head/scalp atraumatic, hearing grossly normal bilaterally and moist oral mucous membranes Eyes PERRL, EOMs intact bilaterally and conjunctivae normal Neck supple, no JVD, thyroid normal and no carotid bruits General: trachea midline Resp normal respiratory effort, no retractions, no use of accessory muscles and clear to auscultation bilaterally Auscultation: Negative for rales, rhonchi or wheezes Cardio regular rate, regular rhythm, S1 normal heart sound, S2 normal heart sound, no murmurs, no rub and no gallops GI normal to inspection, nondistended, normoactive bowel sounds, soft to palpation, non-tender and non-distended Extremity no clubbing, cyanosis or edema Skin no rashes or lesions noted General Skin Exam: no breakdown Neuro CN's II-XII intact bilaterally, moves all extremities, no focal motor deficits and no sensory deficits noted Sensorium / Orientation: awake, alert, oriented to person and oriented to place Speech: speech normal Psych affect normal Results Lab / Micro Data 09/20/23 13:35 09/20/23 13:35 Labs: Laboratory Results - last 24 hr 09/20/23 13:35: WBC 5.8, RBC 3.72 L, Hgb 11.3 L, Hct 33.8 L, MCV 90.9, MCH 30.4, MCHC 33.4, RDW Std Deviation 50.2 H, RDW Coeff of Azeem 15.1 H, Plt Count 123 L, MPV 10.6, Sodium 141, Potassium 3.5, Chloride 109 H, Carbon Dioxide 27.0, Anion Gap 5, BUN 16, Creatinine 1.37 H, Estim Creat Clear Calc 40.88, Est GFR (MDRD) Af Amer 64, Est GFR (MDRD) Non-Af 53 L, BUN/Creatinine Ratio 11.7, Glucose 176 H , Calcium 8.7 09/20/23 16:44: POC Glucose 211 H Micro: Microbiology 09/20/23 13:33 Mucosa - Nasopharyngeal Rapid RSV (DFA) - Final 09/20/23 13:33 Mucosa - Nose Influenza Types A,B Direct FA (ROBERTO) - Final Imagaing Radiology Impression Chest X-Ray 09/20/23 13:16 IMPRESSION: Patchy right lower lobe infiltrate. Electronically Signed: Shad Macias MD at 14:13 EST , Assessment & Plan Assessment/Plan (1) Pneumonia: PLAN: Plan 1. Right lower lobe community-acquired pneumonia without hypoxia-patient will be placed into observation status on MedSurg 3, he will be given aerosol treatments, placed on IV Levaquin, sputum culture will be obtained and urine culture for Legionella and strep as well as respiratory panel. #2 generalized weakness secondary to #1-patient will be seen by PT and OT #3 type 2 diabetes-patient's blood sugars will be monitored, he received sliding scale insulin #4 paroxysmal atrial fibrillation-patient is currently on Eliquis and carvedilol #5 essential hypertension-patient will remain on his home meds #6 cognitive impairment-possible dementia-patient was noted to have memory issues on previous visits to the emergency room, he appears alert today but he is a poor informant overall. #7 history of Crohn's disease-patient gets Remicade as an outpatient #8 hypercoagulable state secondary to paroxysmal atrial fibs-patient is on Eliquis Total clinical time spent by myself addressing the patient's medical issues, reviewing all of his data, and collaborating with patient's care team: 55 minutes Charges/Coding Visit Charges Inpatient E&M: 08973 Init Hosp L2
--- NOTE | 2023-09-20 19:49 | CPS ---
PT DID NOT BRING OWN CPAP MACHINE IN-STATES WILL WEAR 2 L/M VIA NC AT HS
[2023-09-20] MEDS: APIXABAN 5 MG TABLET PO (22:52)
[2023-09-20] MEDS: hydrALAZINE 50 MG Tablet 100 MG PO (22:53)
[2023-09-20] MEDS: busPIRone 5 MG Tablet 7.5 MG PO (22:53)
[2023-09-20] MEDS: Isosorbide Mononitrate 60 MG Tablet PO (22:53)
[2023-09-20] MEDS: Carvedilol 25 MG Tablet PO (22:54)
[2023-09-20] MEDS: guaiFENesin 1,200 MG Tablet 1200 MG PO (22:54)
[2023-09-20] MEDS: Latanoprost 0.005% 1 Bottle 1 DRP LEFT EYE (22:55)
[2023-09-20] MEDS: Montelukast 10 MG Tablet PO (22:55)
[2023-09-20] MEDS: Doxazosin 4 MG Tablet PO (22:55)
[2023-09-20] MEDS: Gabapentin 600 MG Tablet PO (22:57)
[2023-09-20] MEDS: guaiFENesin Dm 10 ML UDC PO (23:05)
[2023-09-20 23:37] LABS: Bedside Glucose 121 mg/dL (74-106)
[2023-09-21] VITALS (20 sets, daily range): BP systolic 121–168; BP diastolic 76–92; PULSE 80–113; RESP 18–20; TEMP 36.5–37.1; O2SAT 85–97
[2023-09-21] MEDS: guaiFENesin Dm 10 ML UDC PO ×2 (05:29→11:50)
[2023-09-21] MEDS: hydrALAZINE 50 MG Tablet 100 MG PO ×3 (05:29→22:45)
[2023-09-21] MEDS: Acetaminophen 325 MG Tablet 650 MG PO ×2 (05:29→11:50)
[2023-09-21] MEDS: Ipratropium/Albuterol Sulfate 3 ML AMPUL.NEB INHALATION ×4 (06:50→19:58)
[2023-09-21 07:33] LABS: Absolute Lymphocyte Count 1.41 X10^3/uL (0.83-4.51); Absolute Neutrophil Count 3.2 X10^3/uL (2.0-7.7); Basophil# 0.02 X10^3/uL; Basophil% 0.4 % (0-1); Eosinophil# 0.11 X10^3/uL; Hematocrit 34.5 % (40-54); Hemoglobin 11.2 g/dL (13.0-16.5); Lymphocyte # 1.41 X10^3/ul (0.83-4.51); Lymphocyte % 25.6 % (19-41); Mean Corp Hgb Conc 32.5 g/dL (32-36); Mean Corpuscular Hgb 30.1 pg (27.0-32.0); Mean Corpuscular Volume 92.7 fL (80-94); Mean Platelet Vol. 10.6 fl (6.2-12.0); Monocyte# 0.73 X10^3/uL; Monocyte% 13.3 % (0-10); NRBC Flagged by Analyzer 0 % (0-5); Neutrophil # 3.21 X10^3/uL (2.7-7.7); Neutrophil % 58.3 % (47-70); Platelet Count 116 K/mm3 (150-450); RBC Distribution Width CV 15.1 % (11.6-14.6); RBC Distribution Width SD 51.1 fl (35.1-43.9); Red Blood Count 3.72 M/mm3 (4.6-6.2); White Blood Count 5.5 K/mm3 (4.4-11.0)
[2023-09-21 07:51] LABS: Bedside Glucose 116 mg/dL (74-106)
[2023-09-21 07:51] LABS: Anion Gap 4 (5-15); BUN 14 mg/dL (7-18); BUN/Creat Ratio 11.4 RATIO (10-20); Calcium,Total 8.4 mg/dL (8.5-10.1); Chloride 109 mmol/L (98-107); Creatinine, Serum 1.23 mg/dL (0.70-1.30); EST Glomerular Filtration Rate 60 mL/min (>60); Est Glom Filt Rate - Afr Amer 73 mL/min (>60); Estimated Creatinine Clearance 45.53 ml/min; Glucose 121 mg/dL (74-106); Potassium 3.3 mmol/L (3.5-5.1); Sodium Level 141 mmol/L (136-145)
--- NOTE | 2023-09-21 09:27 | PN.HOSP_ITS ---
Subjective Subjective Doing well, breathing a bit better today. Did not need oxygen on ambulation however still feels like he has a significant amount of congestion and is uncomfortable with discharge today Objective Data Objective Data Vital Signs: Vital Signs Temp Pulse Resp BP Pulse Ox O2 Del Method O2 Flow Rate 97.7 F L 95 18 165/92 H 94 Room Air 3 09/21/23 07:53 09/21/23 07:53 09/21/23 07:53 09/21/23 07:53 09/21/23 07:53 09/21/23 07:54 09/21/23 05:32 Oxygen Flow Rate (L/min) 3 Oxygen Delivery Method Room Air Weight: 218 lb 7.649 oz Body Mass Index (BMI) 34.2 Intake & Output: Intake and Output for Last 24 Hours 09/20/23 09/21/23 09/22/23 03:59 03:59 03:59 Intake Total 600.75 / 600.75 400.75 / 400.75 Balance 600.75 / 600.75 400.75 / 400.75 Lab / Micro Data 09/21/23 07:01 09/21/23 07:01 Labs: Laboratory Results - last 24 hr 09/20/23 13:35: WBC 5.8, RBC 3.72 L, Hgb 11.3 L, Hct 33.8 L, MCV 90.9, MCH 30.4, MCHC 33.4, RDW Std Deviation 50.2 H, RDW Coeff of Azeem 15.1 H, Plt Count 123 L, MPV 10.6, Sodium 141, Potassium 3.5, Chloride 109 H, Carbon Dioxide 27.0, Anion Gap 5, BUN 16, Creatinine 1.37 H, Estim Creat Clear Calc 40.88, Est GFR (MDRD) Af Amer 64, Est GFR (MDRD) Non-Af 53 L, BUN/Creatinine Ratio 11.7, Glucose 176 H , Calcium 8.7 09/20/23 16:44: POC Glucose 211 H 09/20/23 23:02: POC Glucose 121 H 09/21/23 07:01: WBC 5.5, RBC 3.72 L, Hgb 11.2 L, Hct 34.5 L, MCV 92.7, MCH 30.1, MCHC 32.5, RDW Std Deviation 51.1 H, RDW Coeff of Azeem 15.1 H, Plt Count 116 L, MPV 10.6, Immature Gran % (Auto) 0.400, Neut % (Auto) 58.3, Lymph % (Auto) 25.6, Woodruff % (Auto) 13.3 H, Eos % (Auto) 2.0, Baso % (Auto) 0.4, Absolute Neuts (auto) 3.2, Absolute Lymphs (auto) 1.41, Nucleated RBC % 0, Sodium 141, Potassium 3.3 L , Chloride 109 H, Carbon Dioxide 28.0, Anion Gap 4 L, BUN 14, Creatinine 1.23, Estim Creat Clear Calc 45.53, Est GFR (MDRD) Af Amer 73, Est GFR (MDRD) Non-Af 60, BUN/Creatinine Ratio 11.4, Glucose 121 H, Calcium 8.4 L 09/21/23 07:33: POC Glucose 116 H Micro: Microbiology 09/20/23 22:40 Urine, Random Legionella Antigen - Final 09/20/23 22:40 Urine, Random Streptococcus pneumoniae Antigen (M - Final 09/20/23 16:40 Mucosa - Nasopharyngeal Respiratory Panel (PCR) - Final 09/20/23 13:33 Mucosa - Nasopharyngeal Rapid RSV (DFA) - Final 09/20/23 13:33 Mucosa - Nose Influenza Types A,B Direct FA (ROBERTO) - Final Radiography Diagnostic Testing: Radiology Impression Chest X-Ray 09/20/23 13:16 IMPRESSION: Patchy right lower lobe infiltrate. Electronically Signed: Shad Mcaias MD at 14:13 EST Reading Location ID and State: [facility] / [place] , Service support , Physical Exam Narrative General: Alert, Oriented x3, Cooperative, No apparent distress HEENT: Atraumatic, PERRLA, EOMI, Normocephalic Oral: Moist Mucosa Neck: Supple, No JVD Lungs: Diminished, Normal air movement, rhonchi, No wheeze, No rales Cardiovascular: Regular rate, Regular Rhythm, Normal S1, Normal S2, No murmurs Abdomen: Soft, Non Tender, Non-Distended, No Hepato-splenomegaly Extremities: No edema, Capillary Refill Less than 3 Seconds Skin: No rashes, No breakdown Musculoskeletal: No Tenderness to Palpation of Joints or Extremities Neurological: Cranial nerves II-XII grossly intact, Motor Exam 5/5 strength throughout, Sensory exam intact to light touch and pain Psych/Mental Status: Normal Affect, Appropriate Assessment & Plan Assessment/Plan (1) Pneumonia: PLAN: Plan 1. Right lower lobe community-acquired pneumonia in the setting of a recent COVID infection ? Continue with antibiotics ? Continue incentive spirometry ?Sputum cultures pending respiratory panel was unremarkable and Legionella and strep antigen are negative 2.? CAD/HTN/HLD/paroxysmal A. fib ? Blood pressures are stable ? Can resume his home blood pressure medications ? Continue with his statin ? Continue with Eliquis 3.? DM2/CKD IIIb ? We will hold his home oral medications ? Continue sliding scale insulin ? Accu-Cheks AC at bedtime ? We will make adjustments as necessary ? Renal function is at baseline, will continue to monitor 4.? Glaucoma ? Stable ? Continue his eyedrops 5.? SUPA ? Stable ? Continue with home CPAP 6.? GERD ? Stable ? Continue with PPI DVT: Graciela Charges/Coding Visit Charges Inpatient E&M: 72577 Subs Hosp L2
[2023-09-21] MEDS: Ondansetron 4 MG/2 ML Vial IV (09:28)
[2023-09-21] MEDS: 0.9% Saline Lock 10 ML Syringe IV (09:28)
[2023-09-21] MEDS: levoFLOXacin IV 750 MG/150 ML BAG 100 MG IV (09:32)
[2023-09-21] MEDS: Gabapentin 600 MG Tablet PO ×2 (09:32→22:46)
[2023-09-21] MEDS: QUEtiapine 25 MG Tablet PO (09:32)
[2023-09-21] MEDS: Timolol 0.5% 5ML OPTH.BTL 1 DRP LEFT EYE (09:32)
[2023-09-21] MEDS: DULoxetine Hcl 60 MG Capsule PO (09:33)
[2023-09-21] MEDS: Losartan Potassium 100 MG Tablet PO (09:33)
[2023-09-21] MEDS: Isosorbide Mononitrate 60 MG Tablet PO ×2 (09:33→22:47)
[2023-09-21] MEDS: busPIRone 5 MG Tablet 7.5 MG PO ×2 (09:33→22:46)
[2023-09-21] MEDS: amLODIPine 10 MG Tablet PO (09:33)
[2023-09-21] MEDS: Tolterodine Tartrate 2 MG CAP.SA PO (09:33)
[2023-09-21] MEDS: Amiodarone 200 MG Tablet 100 MG PO (09:33)
[2023-09-21] MEDS: APIXABAN 5 MG TABLET PO ×2 (09:33→22:46)
[2023-09-21] MEDS: guaiFENesin 1,200 MG Tablet 1200 MG PO ×2 (09:33→22:46)
[2023-09-21] MEDS: Doxazosin 4 MG Tablet PO ×2 (09:34→22:48)
[2023-09-21] MEDS: Carvedilol 25 MG Tablet PO ×2 (09:34→22:48)
[2023-09-21] MEDS: Insulin Lispro 100 UNIT/ML INSULN.PEN SC ×2 (11:51→22:54)
[2023-09-21 12:10] LABS: Bedside Glucose 151 mg/dL (74-106)
--- NOTE | 2023-09-21 12:51 | CASEMGMT ---
Social Work SW introduced self and role to patient. Pt reports he has been living independently with his without HHC. Pt denies the need for DME. Pt currently on oxygen but reports at baseline he is not on oxygen at home. Pt denies the need for any further assistance at this time and hopes to discharge tomorrow. CM/SW to follow for needs, pt could need home oxygen at discharge. Kelli Sylvester VICE PRESIDENT SALES, [employer] MACHINE OPERATOR
--- NOTE | 2023-09-21 16:10 | RAD_ITS ---
STUDY: X-RAY CHEST REASON FOR EXAM: Male, 78 years old. Acute worsening hypoxia TECHNIQUE: PA and lateral views of the chest. COMPARISON: 09/20/2023. FINDINGS: The lungs are slightly underexpanded with mild coarse markings in the right mid lower lung field and hazy opacity which could represent mild pneumonitis versus asymmetric vascular congestion. There is left lower lobe opacity most compatible with atelectasis. There is no demonstrated pleural abnormality. Normal size heart. Normal mediastinum and corina. Normal visualized pulmonary arteries. There is atherosclerotic calcification of the aortic arch with tortuosity. There are diffuse degenerative changes of the visualized thoracic spine. There is degenerative osteoarthritis of the bilateral shoulders. There is no demonstrated abnormality of the visualized soft tissue structures of the upper abdomen. RAD/Chest PA and Lateral IMPRESSION: Findings most compatible for right mid lower lung pneumonitis and left basilar atelectasis. Cannot exclude asymmetric vascular congestion. No pleural effusion or pneumothorax. Electronically Signed: Marla Bhatia MD at 17:09 EST ,
[2023-09-21 17:03] LABS: Bedside Glucose 138 mg/dL (74-106)
--- NOTE | 2023-09-21 19:12 | CASEMGMT ---
OCTAVIO BERMUDEZ in to complete RAO for with patient. RN AIDAN explained RAO form to patient, patient voiced understanding. Patient signed RAO form and filed in chart. Patient provided copy of signed RAO form. Patient had no further questions or concerns.
[2023-09-21] MEDS: Montelukast 10 MG Tablet PO (22:46)
[2023-09-21] MEDS: Atorvastatin Calcium 20 MG Tablet PO (22:49)
[2023-09-21] MEDS: Latanoprost 0.005% 1 Bottle 1 DRP LEFT EYE (22:51)
[2023-09-22] VITALS (14 sets, daily range): BP systolic 129–152; BP diastolic 75–86; PULSE 81–105; RESP 18–22; TEMP 36.5–37.2; O2SAT 92–96
[2023-09-22 01:33] LABS: Bedside Glucose 184 mg/dL (74-106)
[2023-09-22 06:14] LABS: Absolute Lymphocyte Count 1.28 X10^3/uL (0.83-4.51); Basophil# 0.02 X10^3/uL; Basophil% 0.4 % (0-1); Eosinophil# 0.17 X10^3/uL; Eosinophils% 3.3 % (0-5); Hematocrit 33.2 % (40-54); Hemoglobin 11.1 g/dL (13.0-16.5); Lymphocyte # 1.28 X10^3/ul (0.83-4.51); Mean Corp Hgb Conc 33.4 g/dL (32-36); Mean Corpuscular Hgb 31.3 pg (27.0-32.0); Mean Corpuscular Volume 93.5 fL (80-94); Mean Platelet Vol. 10.9 fl (6.2-12.0); Monocyte# 0.66 X10^3/uL; Monocyte% 12.9 % (0-10); NRBC Flagged by Analyzer 0 % (0-5); Neutrophil # 2.99 X10^3/uL (2.7-7.7); Neutrophil % 58.2 % (47-70); Platelet Count 124 K/mm3 (150-450); RBC Distribution Width CV 15.3 % (11.6-14.6); RBC Distribution Width SD 52.8 fl (35.1-43.9); Red Blood Count 3.55 M/mm3 (4.6-6.2); White Blood Count 5.1 K/mm3 (4.4-11.0)
[2023-09-22] MEDS: hydrALAZINE 50 MG Tablet 100 MG PO ×3 (06:21→21:49)
[2023-09-22] MEDS: Insulin Lispro 100 UNIT/ML INSULN.PEN SC ×3 (06:22→22:03)
[2023-09-22 06:36] LABS: Anion Gap 3 (5-15); BUN 21 mg/dL (7-18); BUN/Creat Ratio 14.5 RATIO (10-20); Calcium,Total 8.7 mg/dL (8.5-10.1); Chloride 107 mmol/L (98-107); Creatinine, Serum 1.45 mg/dL (0.70-1.30); EST Glomerular Filtration Rate 50 mL/min (>60); Est Glom Filt Rate - Afr Amer 60 mL/min (>60); Estimated Creatinine Clearance 38.62 ml/min; Glucose 179 mg/dL (74-106); Potassium 3.3 mmol/L (3.5-5.1); Sodium Level 141 mmol/L (136-145)
[2023-09-22 07:04] LABS: Bedside Glucose 183 mg/dL (74-106)
[2023-09-22] MEDS: Ipratropium/Albuterol Sulfate 3 ML AMPUL.NEB INHALATION ×4 (07:29→19:30)
[2023-09-22] MEDS: 0.9% Saline Lock 10 ML Syringe IV (07:50)
[2023-09-22] MEDS: Furosemide 40 MG/4 ML Vial IV (07:50)
[2023-09-22] MEDS: Acetaminophen 325 MG Tablet 650 MG PO ×2 (08:02→21:50)
[2023-09-22] MEDS: guaiFENesin Dm 10 ML UDC PO ×2 (08:02→21:48)
--- NOTE | 2023-09-22 08:39 | PCM.PN.HOSP ---
Subjective Subjective Need increased oxygen overnight, repeat chest x-ray not much different from admission Gram stain with gram-negative [place] continue antibiotics Objective Data Objective Data Vital Signs: Vital Signs Temp Pulse Resp BP Pulse Ox O2 Del Method O2 Flow Rate 97.7 F L 103 H 20 H 149/86 H 92 Nasal Cannula 6 09/22/23 07:45 09/22/23 07:45 09/22/23 07:45 09/22/23 07:45 09/22/23 07:45 09/22/23 08:00 09/22/23 08:00 Oxygen Flow Rate (L/min) 6 Oxygen Delivery Method Nasal Cannula Weight: 218 lb 7.649 oz Body Mass Index (BMI) 34.2 Intake & Output: Intake and Output for Last 24 Hours 09/21/23 09/22/23 09/23/23 03:59 03:59 03:59 Intake Total 600.75 / 600.75 850.75 / 850.75 300 / 300 Balance 600.75 / 600.75 850.75 / 850.75 300 / 300 Lab / Micro Data 09/22/23 05:30 09/22/23 05:30 Labs: Laboratory Results - last 24 hr 09/21/23 11:49: POC Glucose 151 H 09/21/23 16:44: POC Glucose 138 H 09/21/23 22:53: POC Glucose 184 H 09/22/23 05:30: WBC 5.1, RBC 3.55 L, Hgb 11.1 L, Hct 33.2 L, MCV 93.5, MCH 31.3, MCHC 33.4, RDW Std Deviation 52.8 H, RDW Coeff of Azeem 15.3 H, Plt Count 124 L, MPV 10.9, Immature Gran % (Auto) 0.200, Neut % (Auto) 58.2, Lymph % (Auto) 25.0, [place] % (Auto) 12.9 H, Eos % (Auto) 3.3, Baso % (Auto) 0.4, Absolute Neuts (auto) 3.0, Absolute Lymphs (auto) 1.28, Nucleated RBC % 0, Sodium 141, Potassium 3.3 L, Chloride 107, Carbon Dioxide 31.0, Anion Gap 3 L, BUN 21 H, Creatinine 1.45 H, Estim Creat Clear Calc 38.62, Est GFR (MDRD) Af Amer 60, Est GFR (MDRD) Non-Af 50 L, BUN/Creatinine Ratio 14.5, Glucose 179 H, Calcium 8.7 09/22/23 06:20: POC Glucose 183 H Micro: Microbiology 09/20/23 16:45 Sputum, Expectorated/Coughed Gram Stain - Final 09/20/23 16:45 Sputum, Expectorated/Coughed Respiratory Culture - Preliminary Gram negative [place] 09/20/23 22:40 Urine, Random Legionella Antigen - Final 09/20/23 22:40 Urine, Random Streptococcus pneumoniae Antigen (M - Final 09/20/23 16:40 Mucosa - Nasopharyngeal Respiratory Panel (PCR) - Final 09/20/23 13:33 Mucosa - Nasopharyngeal Rapid RSV (DFA) - Final 09/20/23 13:33 Mucosa - Nose Influenza Types A,B Direct FA (ROBERTO) - Final Radiography Diagnostic Testing: Radiology Impression Chest X-Ray 09/21/23 16:10 IMPRESSION: Findings most compatible for right mid lower lung pneumonitis and left basilar atelectasis. Cannot exclude asymmetric vascular congestion. No pleural effusion or pneumothorax. Electronically Signed: Marla Bhatia MD at 17:09 EST Reading Location ID and State: [address] [place] [address] , Service support , Physical Exam Narrative General: Alert, Oriented x3, Cooperative, No apparent distress HEENT: Atraumatic, PERRLA, EOMI, Normocephalic Oral: Moist Mucosa Neck: Supple, No JVD Lungs: Diminished, Normal air movement, rhonchi, No wheeze, No rales Cardiovascular: Regular rate, Regular Rhythm, Normal S1, Normal S2, No murmurs Abdomen: Soft, Non Tender, Non-Distended, No Hepato-splenomegaly Extremities: No edema, Capillary Refill Less than 3 Seconds Skin: No rashes, No breakdown Musculoskeletal: No Tenderness to Palpation of Joints or Extremities Neurological: Cranial nerves II-XII grossly intact, Motor Exam 5/5 strength throughout, Sensory exam intact to light touch and pain Psych/Mental Status: Normal Affect, Appropriate Assessment & Plan Assessment/Plan (1) Pneumonia: PLAN: Plan 1. Right lower lobe community-acquired pneumonia in the setting of a recent COVID infection ? Continue with antibiotics ? Continue incentive spirometry ? Sputum cultures with gram-negative [place] respiratory panel Legionella and strep antigens are all negative 2.? CAD/HTN/HLD/paroxysmal A. fib ? Blood pressures are stable ? Can resume his home blood pressure medications ? Continue with his statin ? Continue with Eliquis 3.? DM2/CKD IIIb ? We will hold his home oral medications ? Continue sliding scale insulin ? Accu-Cheks AC at bedtime ? We will make adjustments as necessary ? Renal function is at baseline, will continue to monitor 4.? Glaucoma ? Stable ? Continue his eyedrops 5.? SUPA ? Stable ? Continue with home CPAP 6.? GERD ? Stable ? Continue with PPI DVT: Graciela Charges/Coding Visit Charges Inpatient E&M: 54934 Subs Hosp L2
[2023-09-22] MEDS: Potassium Chloride Oral Tablet 20 MEQ 40 MEQ PO (10:54)
[2023-09-22] MEDS: Isosorbide Mononitrate 60 MG Tablet PO ×2 (10:55→21:53)
[2023-09-22] MEDS: Carvedilol 25 MG Tablet PO ×2 (10:55→21:52)
[2023-09-22] MEDS: Gabapentin 600 MG Tablet PO ×2 (10:55→21:50)
[2023-09-22] MEDS: Timolol 0.5% 5ML OPTH.BTL 1 DRP LEFT EYE (10:55)
[2023-09-22] MEDS: Amiodarone 200 MG Tablet 100 MG PO (10:55)
[2023-09-22] MEDS: QUEtiapine 25 MG Tablet PO (10:55)
[2023-09-22] MEDS: Losartan Potassium 100 MG Tablet PO (10:55)
[2023-09-22] MEDS: APIXABAN 5 MG TABLET PO ×2 (10:55→21:50)
[2023-09-22] MEDS: amLODIPine 10 MG Tablet PO (10:55)
[2023-09-22] MEDS: Doxazosin 4 MG Tablet PO ×2 (10:55→21:51)
[2023-09-22] MEDS: DULoxetine Hcl 60 MG Capsule PO (10:55)
[2023-09-22] MEDS: Tolterodine Tartrate 2 MG CAP.SA PO (10:55)
[2023-09-22] MEDS: guaiFENesin 1,200 MG Tablet 1200 MG PO ×2 (10:55→21:49)
[2023-09-22] MEDS: busPIRone 5 MG Tablet 7.5 MG PO ×2 (10:56→21:51)
[2023-09-22 12:08] LABS: Bedside Glucose 239 mg/dL (74-106)
[2023-09-22 16:29] LABS: Bedside Glucose 135 mg/dL (74-106)
[2023-09-22] MEDS: Atorvastatin Calcium 20 MG Tablet PO (21:53)
[2023-09-22] MEDS: Montelukast 10 MG Tablet PO (21:54)
[2023-09-22] MEDS: Latanoprost 0.005% 1 Bottle 1 DRP LEFT EYE (21:54)
[2023-09-22 23:06] LABS: Bedside Glucose 175 mg/dL (74-106)
[2023-09-23] VITALS (17 sets, daily range): BP systolic 95–163; BP diastolic 57–88; PULSE 77–110; RESP 18–28; TEMP 36.3–37; O2SAT 91–96
[2023-09-23] MEDS: hydrALAZINE 50 MG Tablet 100 MG PO ×3 (06:40→22:14)
[2023-09-23] MEDS: Insulin Lispro 100 UNIT/ML INSULN.PEN SC ×4 (06:40→22:10)
[2023-09-23 06:59] LABS: Anion Gap 5 (5-15); BUN 25 mg/dL (7-18); BUN/Creat Ratio 17.5 RATIO (10-20); Calcium,Total 8.8 mg/dL (8.5-10.1); Chloride 108 mmol/L (98-107); Creatinine, Serum 1.43 mg/dL (0.70-1.30); EST Glomerular Filtration Rate 51 mL/min (>60); Est Glom Filt Rate - Afr Amer 61 mL/min (>60); Estimated Creatinine Clearance 39.16 ml/min; Glucose 158 mg/dL (74-106); Potassium 3.5 mmol/L (3.5-5.1); Sodium Level 142 mmol/L (136-145)
[2023-09-23] MEDS: Ipratropium/Albuterol Sulfate 3 ML AMPUL.NEB INHALATION ×5 (07:12→23:17)
[2023-09-23] MEDS: guaiFENesin Dm 10 ML UDC PO ×3 (08:18→22:07)
[2023-09-23] MEDS: Acetaminophen 325 MG Tablet 650 MG PO ×3 (08:18→22:08)
--- NOTE | 2023-09-23 08:33 | PCM.PN.HOSP ---
Subjective Subjective Maintaining his oxygen 5 L, He Feels Better When He Sitting in the Chair Ambulating Objective Data Objective Data Vital Signs: Vital Signs Temp Pulse Resp BP Pulse Ox O2 Del Method O2 Flow Rate 98.6 F 91 18 143/76 H 93 Nasal Cannula 5 09/23/23 02:40 09/23/23 07:05 09/23/23 07:05 09/23/23 02:40 09/23/23 08:04 09/23/23 08:04 09/23/23 08:04 Oxygen Flow Rate (L/min) 5 Oxygen Delivery Method Nasal Cannula Weight: 218 lb 7.649 oz Body Mass Index (BMI) 34.2 Intake & Output: Intake and Output for Last 24 Hours 09/22/23 09/23/23 09/24/23 03:59 03:59 03:59 Intake Total 850.75 / 850.75 600 / 600 400 / 400 Balance 850.75 / 850.75 600 / 600 400 / 400 Lab / Micro Data 09/22/23 05:30 09/23/23 04:10 Labs: Laboratory Results - last 24 hr 09/22/23 11:48: POC Glucose 239 H 09/22/23 16:10: POC Glucose 135 H 09/22/23 22:02: POC Glucose 175 H 09/23/23 04:10: Sodium 142, Potassium 3.5, Chloride 108 H, Carbon Dioxide 29.0, Anion Gap 5, BUN 25 H, Creatinine 1.43 H, Estim Creat Clear Calc 39.16, Est GFR (MDRD) Af Amer 61, Est GFR (MDRD) Non-Af 51 L, BUN/Creatinine Ratio 17.5, Glucose 158 H, Calcium 8.8 Micro: Microbiology 09/20/23 16:45 Sputum, Expectorated/Coughed Gram Stain - Final 09/20/23 16:45 Sputum, Expectorated/Coughed Respiratory Culture - Preliminary Pseudomonas aeruginosa 09/20/23 22:40 Urine, Random Legionella Antigen - Final 09/20/23 22:40 Urine, Random Streptococcus pneumoniae Antigen (M - Final 09/20/23 16:40 Mucosa - Nasopharyngeal Respiratory Panel (PCR) - Final 09/20/23 13:33 Mucosa - Nasopharyngeal Rapid RSV (DFA) - Final 09/20/23 13:33 Mucosa - Nose Influenza Types A,B Direct FA (ROBERTO) - Final Physical Exam Narrative General: Alert, Oriented x3, Cooperative, No apparent distress HEENT: Atraumatic, PERRLA, EOMI, Normocephalic Oral: Moist Mucosa Neck: Supple, No JVD Lungs: Diminished, Normal air movement, rhonchi, No wheeze, No rales Cardiovascular: Regular rate, Regular Rhythm, Normal S1, Normal S2, No murmurs Abdomen: Soft, Non Tender, Non-Distended, No Hepato-splenomegaly Extremities: No edema, Capillary Refill Less than 3 Seconds Skin: No rashes, No breakdown Musculoskeletal: No Tenderness to Palpation of Joints or Extremities Neurological: Cranial nerves II-XII grossly intact, Motor Exam 5/5 strength throughout, Sensory exam intact to light touch and pain Psych/Mental Status: Normal Affect, Appropriate Assessment & Plan Assessment/Plan (1) Pneumonia: PLAN: Plan 1. Right lower lobe community-acquired pneumonia from Pseudomonas aeruginosa in the setting of a recent COVID infection CT? Continue incentive spirometry ? Sputum culture with a fairly resistant Pseudomonas aeruginosa, continue with Levaquin pending sensitivities ?Will start on prednisone 2.? CAD/HTN/HLD/paroxysmal A. fib ? Blood pressures are stable ? Can resume his home blood pressure medications ? Continue with his statin ? Continue with Eliquis 3.? DM2/CKD IIIb ? We will hold his home oral medications ? Continue sliding scale insulin ? Accu-Cheks AC at bedtime ? We will make adjustments as necessary ? Renal function is at baseline, will continue to monitor 4.? Glaucoma ? Stable ? Continue his eyedrops 5.? SUPA ? Stable ? Continue with home CPAP 6.? GERD ? Stable ? Continue with PPI DVT: Graciela Charges/Coding Visit Charges Inpatient E&M: 98155 Subs Hosp L2
[2023-09-23 08:44] LABS: Bedside Glucose 163 mg/dL (74-106)
[2023-09-23] MEDS: DULoxetine Hcl 60 MG Capsule PO (10:54)
[2023-09-23] MEDS: Tolterodine Tartrate 2 MG CAP.SA PO (10:54)
[2023-09-23] MEDS: levoFLOXacin IV 750 MG/150 ML BAG 100 MG IV (10:54)
[2023-09-23] MEDS: busPIRone 5 MG Tablet 7.5 MG PO ×2 (10:55→22:12)
[2023-09-23] MEDS: APIXABAN 5 MG TABLET PO ×2 (10:55→22:13)
[2023-09-23] MEDS: guaiFENesin 1,200 MG Tablet 1200 MG PO ×2 (10:55→22:16)
[2023-09-23] MEDS: Gabapentin 600 MG Tablet PO ×2 (11:04→22:19)
[2023-09-23] MEDS: QUEtiapine 25 MG Tablet PO (11:04)
[2023-09-23] MEDS: Amiodarone 200 MG Tablet 100 MG PO (11:06)
[2023-09-23] MEDS: Timolol 0.5% 5ML OPTH.BTL 1 DRP LEFT EYE (11:07)
[2023-09-23] MEDS: 0.9% Saline Lock 10 ML Syringe IV ×2 (11:14→14:43)
[2023-09-23] MEDS: predniSONE 20 MG Tablet 40 MG PO (11:22)
[2023-09-23 11:47] LABS: Bedside Glucose 203 mg/dL (74-106)
[2023-09-23 17:53] LABS: Bedside Glucose 197 mg/dL (74-106)
[2023-09-23] MEDS: Carvedilol 25 MG Tablet PO (22:11)
[2023-09-23] MEDS: Doxazosin 4 MG Tablet PO (22:15)
[2023-09-23] MEDS: Isosorbide Mononitrate 60 MG Tablet PO (22:15)
[2023-09-23] MEDS: Atorvastatin Calcium 20 MG Tablet PO (22:16)
[2023-09-23] MEDS: Montelukast 10 MG Tablet PO (22:16)
[2023-09-23] MEDS: Latanoprost 0.005% 1 Bottle 1 DRP LEFT EYE (22:17)
[2023-09-23 22:43] LABS: Bedside Glucose 269 mg/dL (74-106)
--- NOTE | 2023-09-23 23:30 | CPS ---
Pt on home BiPAP unit with 5 lpm O2 bleed in.
[2023-09-24 04:45] VITALS: BP 155/87; PULSE 87
[2023-09-24] MEDS: hydrALAZINE 50 MG Tablet 100 MG PO (04:45)
[2023-09-24] MEDS: Acetaminophen 325 MG Tablet 650 MG PO (04:49)
[2023-09-24] MEDS: guaiFENesin Dm 10 ML UDC PO (04:49)
[2023-09-24 04:52] VITALS: BP 155/87; PULSE 87; RESP 18; TEMP 36.6; O2SAT 94
[2023-09-24] MEDS: Insulin Lispro 100 UNIT/ML INSULN.PEN SC (06:26)
[2023-09-24 06:28] VITALS: RESP 18; O2SAT 95
--- NOTE | 2023-09-24 06:28 | NURSING ---
pt refusing to wear anymore oxygen, Pt in room w no 02 on. Check po 94-95% on ra
[2023-09-24 06:42] LABS: Absolute Lymphocyte Count 1.09 X10^3/uL (0.83-4.51); Absolute Neutrophil Count 3.6 X10^3/uL (2.0-7.7); Basophil# 0.01 X10^3/uL; Basophil% 0.2 % (0-1); Hemoglobin 11.2 g/dL (13.0-16.5); Lymphocyte # 1.09 X10^3/ul (0.83-4.51); Lymphocyte % 21.9 % (19-41); Mean Corpuscular Hgb 29.9 pg (27.0-32.0); Mean Corpuscular Volume 93.6 fL (80-94); Mean Platelet Vol. 10.7 fl (6.2-12.0); Monocyte# 0.28 X10^3/uL; Monocyte% 5.6 % (0-10); NRBC Flagged by Analyzer 0 % (0-5); Neutrophil # 3.55 X10^3/uL (2.7-7.7); Neutrophil % 71.5 % (47-70); Platelet Count 124 K/mm3 (150-450); RBC Distribution Width SD 51.7 fl (35.1-43.9); Red Blood Count 3.74 M/mm3 (4.6-6.2)
[2023-09-24] MEDS: Ipratropium/Albuterol Sulfate 3 ML AMPUL.NEB INHALATION (06:52)
[2023-09-24 06:53] VITALS: PULSE 88; RESP 18; O2SAT 95
[2023-09-24 06:59] LABS: Anion Gap 7 (5-15); BUN 32 mg/dL (7-18); BUN/Creat Ratio 20.6 RATIO (10-20); Calcium,Total 8.9 mg/dL (8.5-10.1); Chloride 107 mmol/L (98-107); Creatinine, Serum 1.55 mg/dL (0.70-1.30); EST Glomerular Filtration Rate 46 mL/min (>60); Est Glom Filt Rate - Afr Amer 56 mL/min (>60); Estimated Creatinine Clearance 36.13 ml/min; Glucose 261 mg/dL (74-106); Potassium 3.8 mmol/L (3.5-5.1); Sodium Level 140 mmol/L (136-145)
[2023-09-24 07:04] LABS: Bedside Glucose 242 mg/dL (74-106)
[2023-09-24 07:35] VITALS: BP 168/91; PULSE 87; RESP 18; TEMP 36.6; O2SAT 96
[2023-09-24 07:42] VITALS: O2SAT 97
[2023-09-24] MEDS: predniSONE 20 MG Tablet 40 MG PO (07:47)
--- NOTE | 2023-09-24 08:35 | DCINST_ITS ---
Discharge Instructions Diet Discharge Diet: Low fat / Low cholesterol and Carb Control Diet Activity Discharge Activity: Return to Normal Activity Dressing / Incision Call your doctor if you observe: Fever of 101 or Higher, Shortness of breath, Dizziness, Fainting spells, Swelling in the ankles, Chest pain and Increased palpitations (irregular heartbeat) Follow Up Care Test Results: Test results from this visit will be discussed in further detail at your follow- up appointment, if applicable. Discharge Plan Admission Admit Date/Time: 09/22/23 14:53 Attending Provider: Boris Bojorquez Primary Care Provider: Jayme Yang Consulting Providers: Drake Mason Discharge Orders/Prescriptions Prescriptions: New prednisone 20 mg Tablet 40 mg PO BREAKFAST 10 Days Qty: 20 0RF levofloxacin 750 mg tablet 750 mg PO Q48H Qty: 4 0RF Continued duloxetine [Cymbalta] 60 mg capsule,delayed release(DR/EC) 60 mg PO DAILY gabapentin 600 mg tablet 600 mg PO BID fluticasone furoate-vilanterol [Breo Ellipta] 200-25 mcg/dose blister with device 1 inh inhalation QDAY Qty: 60 6RF Rx Instructions: after inhalation, rinse mouth with water and spit out; do not swallow glimepiride 2 MG tablet 2 mg PO QHS Patient Comments: buspirone 7.5 mg tablet 7.5 mg PO BID latanoprost 0.005 % Drops 1 drp LEFT EYE QPM carvedilol 25 mg tablet 25 mg PO BID losartan 100 mg tablet 100 mg PO DAILY doxazosin 4 mg tablet 4 mg PO BID oxybutynin chloride 10 mg tablet extended release 24hr 10 mg PO DAILY timolol maleate 0.5 % drops 1 drp LEFT EYE DAILY rosuvastatin 20 mg tablet 10 mg PO DAILY infliximab [Remicade] 100 mg recon soln 100 mg IV .Q7W Patient Comments: INFUSE 10MG/KG IV EVERY 7 WEEKS. DUE ON Saturday09/06/23 potassium chloride 10 mEq tablet,ER particles/crystals 10 meq PO DAILY guaifenesin [Mucus Relief ER] 1,200 mg Tablet Extended Release 12hr 1,200 mg PO BID Qty: 20 0RF quetiapine 25 mg tablet 25 mg PO DAILY amlodipine 10 mg tablet 10 mg PO DAILY apixaban 5 mg tablet 5 mg PO BID Qty: 180 3RF hydralazine 100 mg tablet 100 mg PO TID Qty: 270 3RF montelukast 10 mg tablet 10 mg PO QPM Qty: 30 3RF isosorbide mononitrate 60 mg tablet extended release 24 hr 60 mg PO BID Qty: 90 3RF amiodarone 200 mg tablet See Rx Instructions .ROUTE .COMPLEX Qty: 45 3RF Dose Instruction: Take 1/2 (one-half) tablet by mouth once daily Patient Comments: PT IS NOT SURE OF THE DOSAGE Rx Instructions: Take 1/2 (one-half) tablet by mouth once daily Referrals / Follow Up: Jayme Yang MD [Primary Care Provider] - Within 1 Week Disposition Disposition (needs filled in before D/C Order can be placed): Home, Self Care
--- NOTE | 2023-09-24 10:42 | PCM.DC.SUM ---
Providers Date of Admission: 09/22/23 Primary Care Physician: Dr. Jayme Yang MD Reason For Visit: RLL PNEUMONIA, A-FIB, HX Diagnosis Discharge Diagnosis (1) Pneumonia: Status: Acute Code(s): J18.9 - Pneumonia, unspecified organism Medications at Discharge Home Medications glimepiride 2 mg tablet 2 mg PO QHS diabetes 01/22/18 duloxetine 60 mg capsule,delayed release (Cymbalta) 60 mg PO DAILY depression 06/02/19 buspirone 7.5 mg tablet 7.5 mg PO BID depression/anxiety 04/12/21 latanoprost 0.005 % eye drops 1 drp LEFT EYE QPM eye health 12/22/21 gabapentin 600 mg tablet 600 mg PO BID neuropathy 01/26/22 carvedilol 25 mg tablet 25 mg PO BID HEART 10/02/22 doxazosin 4 mg tablet 4 mg PO BID BLOOD PRESSURE 10/02/22 losartan 100 mg tablet 100 mg PO DAILY BLOOD PRESSURE 10/02/22 oxybutynin chloride 10 mg tablet,extended release 24 hr 10 mg PO DAILY bladder 10/04/22 timolol maleate 0.5 % eye drops 1 drp LEFT EYE DAILY EYE HEALTH 10/04/22 apixaban 5 mg tablet 5 mg PO BID afib #180 tabs 12/03/22 rosuvastatin 20 mg tablet 10 mg PO DAILY cholesterol 03/21/23 fluticasone furoate 200 mcg-vilanterol 25 mcg/dose inhalation powder (Breo Ellipta) 1 inh inhalation QDAY #60 ea 04/04/23 infliximab 100 mg intravenous solution (Remicade) 100 mg IV .Q7W crohns 05/24/23 hydralazine 100 mg tablet 100 mg PO TID BLOOD PRESSURE #270 tabs 06/14/23 isosorbide mononitrate 60 mg tablet,extended release 24 hr 60 mg PO BID BLOOD PRESSURE #90 tabs 07/25/23 montelukast 10 mg tablet 10 mg PO QPM #30 tabs 07/25/23 amiodarone 200 mg tablet See Rx Instructions .Route .COMPLEX #45 TABLETS 08/28/23 potassium chloride 10 mEq tablet,extended release(part/cryst) 10 meq PO DAILY supplement 09/04/23 guaifenesin 1,200 mg tablet, extended release 12 hr (Mucus Relief ER) 1,200 mg PO BID #20 tabs 09/05/23 amlodipine 10 mg tablet 10 mg PO DAILY 09/20/23 quetiapine 25 mg tablet 25 mg PO DAILY 09/20/23 levofloxacin 750 mg tablet 750 mg PO Q48H #4 tabs 09/24/23 prednisone 20 mg tablet 40 mg (2 x 20 mg) PO BREAKFAST 10 days #20 tabs 09/24/23 Hospital Course Operations None Procedures None Summary of Care Provided Minutes Spent on Discharge: 37 Hospital Course: Per HPI:MEGAN HOLLOWAY, is a 78 M who presents to the emergency room at [facility], he states he has been very weak at home and he has a persistent cough that is productive of yellow and green sputum. Patient was discharged from the hospital earlier this month with a COVID-19 diagnosis. Labs performed in the emergency room included a CBC which was remarkable for hemoglobin of 11.3, patient's platelet count was slightly low at 123,000, patient's white blood cell count was normal. Chemistry panel was remarkable for creatinine 1.37, glucose was 176. Patient's pulse ox on room air was 92 Chest x-ray showed a right lower lobe infiltrate. Due to the patient's weakness, he will be admitted to [place] [address] for community-acquired pneumonia and generalized weakness, he will be seen by PT and OT, he will be placed on Levaquin for the pneumonia. Hospital course: 1. Right lower lobe community-acquired pneumonia from Pseudomonas aeruginosa in the setting of a recent COVID infection CT? Continue incentive spirometry ? Sputum culture with a fairly resistant Pseudomonas aeruginosa, continue with Levaquin pending sensitivities ?Will start on prednisone 09/24/2023: Significantly improved today, did not require any oxygen with ambulation or at rest. Will continue prednisone for 10 more days on discharge. 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 I discussed with him the plan for discharge today and he expressed understanding of the risk and benefits of going home and he would like to go home today, he has a radiation oncology appointment for his prostate cancer today that he would like to get to. Can resume all of his home medications on discharge 2.? CAD/HTN/HLD/paroxysmal A. fib ? Blood pressures are stable ? Can resume his home blood pressure medications ? Continue with his statin ? Continue with Eliquis 3.? DM2/CKD IIIb ? We will hold his home oral medications ? Continue sliding scale insulin ? Accu-Cheks AC at bedtime ? We will make adjustments as necessary ? Renal function is at baseline, will continue to monitor 4.? Glaucoma ? Stable ? Continue his eyedrops 5.? SUPA ? Stable ? Continue with home CPAP 6.? GERD ? Stable ? Continue with PPI DVT: Eliquis Physical Exam Narrative General: Alert, Oriented x3, Cooperative, No apparent distress HEENT: Atraumatic, PERRLA, EOMI, Normocephalic Oral: Moist Mucosa Neck: Supple, No JVD Lungs: Diminished, Normal air movement, rhonchi, No wheeze, No rales Cardiovascular: Regular rate, Regular Rhythm, Normal S1, Normal S2, No murmurs Abdomen: Soft, Non Tender, Non-Distended, No Hepato-splenomegaly Extremities: No edema, Capillary Refill Less than 3 Seconds Skin: No rashes, No breakdown Musculoskeletal: No Tenderness to Palpation of Joints or Extremities Neurological: Cranial nerves II-XII grossly intact, Motor Exam 5/5 strength throughout, Sensory exam intact to light touch and pain Psych/Mental Status: Normal Affect, Appropriate Weight / BMI Weight Weight: 218 lb 7.649 oz Body Mass Index (BMI) 34.2 ABG / Lab / Microbiology Data 09/24/23 05:50 09/24/23 05:50 Laboratory: Laboratory Results - last 24 hr 09/23/23 11:24: POC Glucose 203 H 09/23/23 17:08: POC Glucose 197 H 09/23/23 22:09: POC Glucose 269 H 09/24/23 05:50: WBC 5.0, RBC 3.74 L, Hgb 11.2 L, Hct 35.0 L, MCV 93.6, MCH 29.9, MCHC 32.0, RDW Std Deviation 51.7 H, RDW Coeff of Azeem 15.0 H, Plt Count 124 L, MPV 10.7, Immature Gran % (Auto) 0.800, Neut % (Auto) 71.5 H, Lymph % (Auto) 21.9, [place] % (Auto) 5.6, Eos % (Auto) 0.0, Baso % (Auto) 0.2, Absolute Neuts (auto) 3.6, Absolute Lymphs (auto) 1.09, Nucleated RBC % 0, Sodium 140, Potassium 3.8, Chloride 107, Carbon Dioxide 26.0, Anion Gap 7, BUN 32 H, Creatinine 1.55 H, Estim Creat Clear Calc 36.13, Est GFR (MDRD) Af Amer 56 L, Est GFR (MDRD) Non-Af 46 L, BUN/Creatinine Ratio 20.6 H, Glucose 261 H, Calcium 8.9 09/24/23 06:23: POC Glucose 242 H Microbiology: Microbiology 09/20/23 16:45 Sputum, Expectorated/Coughed Gram Stain - Final 09/20/23 16:45 Sputum, Expectorated/Coughed Respiratory Culture - Preliminary Pseudomonas aeruginosa 09/20/23 22:40 Urine, Random Legionella Antigen - Final 09/20/23 22:40 Urine, Random Streptococcus pneumoniae Antigen (M - Final 09/20/23 16:40 Mucosa - Nasopharyngeal Respiratory Panel (PCR) - Final 09/20/23 13:33 Mucosa - Nasopharyngeal Rapid RSV (DFA) - Final 09/20/23 13:33 Mucosa - Nose Influenza Types A,B Direct FA (ROBERTO) - Final D/C Instructions Discharge Diet: Low fat / Low cholesterol and Carb Control Diet Call your doctor if you observe: Fever of 101 or Higher, Shortness of breath, Dizziness, Fainting spells, Swelling in the ankles, Chest pain and Increased palpitations (irregular heartbeat) Meaningful Use Info Meaningful Use Diagnoses (Choose all that apply): None applicable Discharge Plan Admission Admit Date/Time: 09/22/23 14:53 Attending Provider: Boris Bojorquez Primary Care Provider: Jayme Yang Consulting Providers: Drake Mason Discharge Orders/Prescriptions Prescriptions: New prednisone 20 mg Tablet 40 mg PO BREAKFAST 10 Days Qty: 20 0RF levofloxacin 750 mg tablet 750 mg PO Q48H Qty: 4 0RF Continued duloxetine [Cymbalta] 60 mg capsule,delayed release(DR/EC) 60 mg PO DAILY gabapentin 600 mg tablet 600 mg PO BID fluticasone furoate-vilanterol [Breo Ellipta] 200-25 mcg/dose blister with device 1 inh inhalation QDAY Qty: 60 6RF Rx Instructions: after inhalation, rinse mouth with water and spit out; do not swallow glimepiride 2 MG tablet 2 mg PO QHS Patient Comments: buspirone 7.5 mg tablet 7.5 mg PO BID latanoprost 0.005 % Drops 1 drp LEFT EYE QPM carvedilol 25 mg tablet 25 mg PO BID losartan 100 mg tablet 100 mg PO DAILY doxazosin 4 mg tablet 4 mg PO BID oxybutynin chloride 10 mg tablet extended release 24hr 10 mg PO DAILY timolol maleate 0.5 % drops 1 drp LEFT EYE DAILY rosuvastatin 20 mg tablet 10 mg PO DAILY infliximab [Remicade] 100 mg recon soln 100 mg IV .Q7W Patient Comments: INFUSE 10MG/KG IV EVERY 7 WEEKS. DUE ON Saturday09/06/23 potassium chloride 10 mEq tablet,ER particles/crystals 10 meq PO DAILY guaifenesin [Mucus Relief ER] 1,200 mg Tablet Extended Release 12hr 1,200 mg PO BID Qty: 20 0RF quetiapine 25 mg tablet 25 mg PO DAILY amlodipine 10 mg tablet 10 mg PO DAILY apixaban 5 mg tablet 5 mg PO BID Qty: 180 3RF hydralazine 100 mg tablet 100 mg PO TID Qty: 270 3RF montelukast 10 mg tablet 10 mg PO QPM Qty: 30 3RF isosorbide mononitrate 60 mg tablet extended release 24 hr 60 mg PO BID Qty: 90 3RF amiodarone 200 mg tablet See Rx Instructions .ROUTE .COMPLEX Qty: 45 3RF Dose Instruction: Take 1/2 (one-half) tablet by mouth once daily Patient Comments: PT IS NOT SURE OF THE DOSAGE Rx Instructions: Take 1/2 (one-half) tablet by mouth once daily Referrals / Follow Up: Jayme Yang MD [Primary Care Provider] - Within 1 Week Disposition Disposition (needs filled in before D/C Order can be placed): Home, Self Care Charges/Coding Visit Charges Inpatient E&M: 09177 Disch Hosp >30min
--- NOTE | 2023-09-24 16:42 | CASEMGMT ---
OCTAVIO BERMUDEZ Readmission Note Previous Admission: 09/04/23-09/05/23 Diagnosis: covid 19 acute bronchitis with bronchospasm and generalized weakness DC Disposition: Home Current Admission: Admitted 09/22/23 Current Diagnosis: RLL pneumonia, afib Received tc from charge nurse at 0830 stating pt has radiation at 0900 and will be dc'd to do this. Pt did not qualify for home oxygen. Per charge nurse, pt doing exercises on side of bed. States pt did not have any homegoing needs and wanted to leave to go to radiation. OCTAVIO BERMUDEZ arrived to floor and pt had dc'd.
== END 2023-09-24 08:57 | disposition home or self-care (01) | DRG 178 ==
LOC: ED 14:44 → MS3 15:04
PROVIDERS: Admitting Provider Internal Medicine; Emergency Provider Emergency Medicine; PCP Family Medicine; Visit Provider Family Medicine
DX: J15.1 Pneumonia due to Pseudomonas (principal); D68.69 Other thrombophilia; K50.90 Crohn's disease, unspecified, without complications; C61 Malignant neoplasm of prostate; F03.90 Unspecified dementia, unspecified severity, without behavioral disturbance, psychotic disturbance, mood disturbance, and anxiety; N18.32 Chronic kidney disease, stage 3b; E11.22 Type 2 diabetes mellitus with diabetic chronic kidney disease; Z79.4 Long term (current) use of insulin; I48.0 Paroxysmal atrial fibrillation; I12.9 Hypertensive chronic kidney disease with stage 1 through stage 4 chronic kidney disease, or unspecified chronic kidney disease; K21.9 Gastro-esophageal reflux disease without esophagitis; E78.00 Pure hypercholesterolemia, unspecified; I25.10 Atherosclerotic heart disease of native coronary artery without angina pectoris; G47.33 Obstructive sleep apnea (adult) (pediatric); U09.9 Post COVID-19 condition, unspecified; H40.9 Unspecified glaucoma; Z79.01 Long term (current) use of anticoagulants; Z79.51 Long term (current) use of inhaled steroids; Z79.84 Long term (current) use of oral hypoglycemic drugs; Z79.899 Other long term (current) drug therapy; Z87.891 Personal history of nicotine dependence
CPT/HCPCS: 36415; 71046; 77385; 80048; 82962; 85025; 85027; 87070; 87184; 87205; 87449; 87633; 87804; 87807; 93005; 94640; 97110; 97116; 97162; 97166; 97535; 99285; J7050; A4216; J1940; J2405

== ENCOUNTER → 2023-10-16 | Outpatient (CLI) | payer MEDICARE, SELFPAY ==
--- OUTSIDE RECORDS SUMMARY | 2023-10-16 16:05 | XMS RPT_ITS | CCD ---
Author Name Unknown Address [address] [place] [address] Organization [facility] Care Team Providers Care Concrete Craftsman Name Role Phone Anabelle Mead Unavailable Asuncion CUNNINGHAM, Yasmin Ambrocio Unavailable Unavailable Gricel CUNNINGHAM, Faye Curry Unavailable Asuncion CUNNINGHAM, Yasmin Ambrocio Unavailable Unavailable DeFinis, Harumi Y Unavailable Unavailable Chong, Kaylene Unavailable Unavailable Allergies Allergy Classification Reported Allergen(s) Allergy Type Date of Onset Reaction(s) Facility (6 sources) aspirin drug allergy 12-12-2016 Mouth Swelling [facility] Work Phone: (6 sources) morphine drug allergy 12-12-2016 GI Problems [facility] [employer] [facility] Work Phone: Medications Completed/Discontinued Medications Medication Drug Class(es) Dates Sig (Normalized) Sig (Original) AMLODIPINE BESY-BENAZEPRIL HCL (6 sources) Dihydropyridine Calcium Channel Kenji, Angiotensin Converting Enzyme Inhibitor Start: 12-12-2016 take 1 tablet by mouth once daily LOTREL 10-40 MG CAPS One tablet by mouth daily AMLODIPINE BESY-BENAZEPRIL HCL [id number] Faye Monsalve RN Problems Active Problems Problem [...] (Body Mass Index) 34.12 kg/m2 Kaylene Fernandes [employer] Work Phone: 03-22-2017 09:32-0400 BP Diastolic 88 mm[Hg] Kaylene Chong [employer] Work Phone: 03-22-2017 09:32-0400 BP Systolic 146 mm[Hg] Kaylene Chong [employer] Work Phone: 03-22-2017 09:32-0400 Height 167.64 cm Kaylene Chong [employer] Work Phone: 03-22-2017 09:32-0400 Pulse (Heart Rate) 72 /min Kaylene Chong [employer] Work Phone: 03-22-2017 09:32-0400 Respiratory Rate 20 /min Kaylene Chong [facility] Work Phone: 03-22-2017 09:32-0400 Weight 95.89 kg Kaylene Chong [facility] Work Phone: 12-13-2016 14:06-0400 Heart rate 71 /min Natalee Hernandez [facility] Work Phone: 12-13-2016 13:33-0400 BMI (Body Mass Index) 34.21 kg/m2 Yasmin Roland RN [facility] Work Phone: 12-13-2016 13:33-0400 BP Diastolic 78 mm[Hg] Yasmin Roland RN [facility] Work Phone: 12-13-2016 13:33-0400 BP Systolic 138 mm[Hg] Yasmin Roland RN [facility] Work Phone: 12-13-2016 13:33-0400 Height 167.64 cm Yasmin Roland RN [facility] Work Phone: 12-13-2016 13:33-0400 Pulse (Heart Rate) 80 /min Yasmin Roland RN [facility] Work Phone: 12-13-2016 13:33-0400 Respiratory Rate 16 /min Yasmin Roland RN [facility] Work Phone: 12-13-2016 13:33-0400 Weight 96.16 kg Yasmin Roland RN [facility] Work Phone: Procedures Date Procedure Procedure Detail Performing Clinician Start: 02-22-2020 Antibody screen Plan of Treatment Date Care Activity Detail Author Start: 11-04-2017 End: 11-04-2017 Appointment Appointment [facility] Work Phone: Start: 03-22-2017 End: 03-22-2017 Appointment Appointment [facility] Work Phone: Start: 03-22-2017 End: 03-22-2017 Appointment Appointment [facility] Work Phone: Start: 03-22-2017 End: 03-22-2017 Follow Up Appt 6 months Follow Up Appt 6 months [facility] Work Phone: Start: 03-22-2017 End: 03-22-2017 PFM PFM [employer] Work Phone: Start: 12-13-2016 End: 02-07-2017 *BMP *BMP [facility] [employer] [facility] Work Phone: Start: 12-13-2016 End: 02-07-2017 CBC W Auto Differential panel - Blood *CBC without Diff [employer] [employer] Work Phone: Start: 12-13-2016 End: 12-13-2016 Electrocardiogram, complete EKG (In office) [employer] [employer] [facility] Work Phone: Start: 12-13-2016 End: 12-13-2016 Follow Up Appt 3 months Follow Up Appt 3 months [facility] Work Phone: Start: 12-13-2016 End: 12-13-2016 MMM MMM [facility] [employer] Work Phone: Start: 12-13-2016 End: 12-13-2016 Remote 30 day ecg rev/report 30 Day Holter Monitor [employer] Work Phone: Start: 12-13-2016 End: 12-13-2016 Tilt table evaluation Tilt Table Test [employer] [facility] Work Phone: Summary Purpose Family History No Family History Records FoundNo Family History Records Found Advance Directives No Advanced Directives Records FoundNo Advanced Directives Records Found Hospital Course Note HNO ID: [id number] Author: Erica Greco MD Service: Hospital Medicine [...] BE BASED ON THE PRIMARY CLINICAL RECORDS. [facility] [employer] [facility]. provides no warranty or guarantee of the accuracy or completeness of information in this document.
[2023-10-16 16:49] LABS: ALB/GLOB Ratio 0.8 RATIO (0.9-2.4); AST(SGOT) 39 U/L (15-37); Alanine Aminotransfer ALT/SGPT 57 U/L (16-61); Albumin, Serum 3.3 g/dL (3.2-5.0); Alkaline Phosphatase 57 U/L (45-117); Anion Gap 5 (5-15); BUN 16 mg/dL (7-18); BUN/Creat Ratio 12.5 RATIO (10-20); Calcium,Total 9.2 mg/dL (8.5-10.1); Chloride 110 mmol/L (98-107); Creatinine, Serum 1.28 mg/dL (0.70-1.30); EST Glomerular Filtration Rate 58 mL/min (>60); Est Glom Filt Rate - Afr Amer 70 mL/min (>60); Globulin 4.1 g/dL (2.2-4.2); Glucose 119 mg/dL (74-106); Potassium 3.8 mmol/L (3.5-5.1); Protein, Total 7.4 g/dL (6.4-8.2); Sodium Level 143 mmol/L (136-145); Uric Acid 4.3 mg/dL (3.5-7.2)
[2023-10-16 16:50] LABS: Absolute Lymphocyte Count 1.88 X10^3/uL (0.83-4.51); Absolute Neutrophil Count 2.1 X10^3/uL (2.0-7.7); Basophil# 0.02 X10^3/uL; Basophil% 0.4 % (0-1); Eosinophil# 0.29 X10^3/uL; Eosinophils% 5.8 % (0-5); Hematocrit 36.7 % (40-54); Hemoglobin 12.2 g/dL (13.0-16.5); Lymphocyte # 1.88 X10^3/ul (0.83-4.51); Lymphocyte % 37.8 % (19-41); Mean Corp Hgb Conc 33.2 g/dL (32-36); Mean Corpuscular Hgb 31.2 pg (27.0-32.0); Mean Corpuscular Volume 93.9 fL (80-94); Mean Platelet Vol. 10.4 fl (6.2-12.0); Monocyte# 0.65 X10^3/uL; Monocyte% 13.1 % (0-10); NRBC Flagged by Analyzer 0 % (0-5); Neutrophil # 2.12 X10^3/uL (2.7-7.7); Neutrophil % 42.7 % (47-70); Platelet Count 152 K/mm3 (150-450); RBC Distribution Width CV 16.2 % (11.6-14.6); Red Blood Count 3.91 M/mm3 (4.6-6.2)
== END | disposition home or self-care (01) ==
LOC: LAB 15:44
PROVIDERS: PCP Family Medicine; Referring Provider Internal Medicine Rheumatology; Visit Provider Internal Medicine Rheumatology
DX: M06.041 Rheumatoid arthritis without rheumatoid factor, right hand (principal); N18.9 Chronic kidney disease, unspecified; Z79.899 Other long term (current) drug therapy
CPT/HCPCS: 36415; 80053; 84550; 85025

== ENCOUNTER 2023-11-11 19:43 | Inpatient (IN) | payer MEDICARE, SELFPAY ==
[2023-11-11 19:45] VITALS: BP 168/130; PULSE 101; RESP 23; TEMP 36; O2SAT 86; BMI 35.4
[2023-11-11 19:48] VITALS: BP 186/106; PULSE 94; RESP 23; O2SAT 92
--- NOTE | 2023-11-11 20:08 | EKG12_ITS ---
Test Reason : CP Blood Pressure : / mmHG Vent. Rate : 103 BPM Atrial Rate : 103 BPM P-R Int : 208 ms QRS Dur : 084 ms QT Int : 362 ms P-R-T Axes : 033 -40 023 degrees QTc Int : 474 ms Sinus tachycardia Left axis deviation Poor R wave progression Abnormal ECG Confirmed by Miguel Ashton ([id number]), electronic news gathering editor CRISTI ROOT ([id number]) on 11/12/2023 9:30:03 AM Referred By: PL Confirmed By:Miguel Ashton
--- NOTE | 2023-11-11 20:10 | EDS_ITS ---
HPI History of Present Illness Chief Complaint: Chest Pain Informant: patient and spouse/S.O. Narrative Narrative: Patient presents with chest pain. It sounds like the patient has not been feeling well for a day. It is very hard to get the detailed onset of this. He had 20 radiation treatments for prostate cancer that ended a few weeks ago. He also had COVID around Thanksgiving. He has been weak ever since this. He states he just cannot seem to get his st rength back. Yesterday he slept more of the day than would be normal. But he was not having any symptoms other than that. Today he was sitting in a chair. He states he got the onset of pain in his left anterior chest. Just left of sternum. It radiated up to the shoulders. He states both of his arms felt just kind of heavy. He did have some shortness of breath with this that seems more than his baseline. He did vomit a couple times. No blood was seen and he has no abdominal pain. He also complained that he was lightheaded and kind of dizzy. His symptoms are markedly improved now. It was not tearing or ripping. He was not syncopal. He never had pain in his back. No abdominal pains. His states that he has history of getting pneumonia is very easily. She is concerned about that because she heard him cough some Patient is on and is taking his Eliquis. This is due to a history of intermittent atrial fibrillation. He is a former smoker but quit many years ago. No first-degree relative history of early heart disease although his mother had stents she lived till 97 years old. But this patient does have obesity diabetes high blood pressure and high cholesterol. [facility] Medical History (Updated 11/11/23 @ 22:[address] Jeremy Barnhart MD) Abnormal stress test Acute bronchitis with bronchospasm Acute respiratory insufficiency Anticoagulant long-term use Anxiety Aortic stenosis Arthralgia of foot, left Arthralgia of right knee Arthritis Asthma Asymptomatic hypertensive urgency Atherosclerotic heart disease of [place] coronary artery without angina pectoris Atrial fibrillation with RVR Back pain BiPAP (biphasic positive airway pressure) dependence Bronchitis Cancer of prostate with intermediate recurrence risk (stage T2b-c or Liza 7 or PSA 10-20) Cardiology follow-up encounter Closed head injury Colitis Concussion COVID-19 virus infection CPAP (continuous positive airway pressure) dependence Dementia Depression Diverticula of colon DM2 (diabetes mellitus, type 2) Dyspnea on exertion Dysuria Effusion, left knee Effusion, right knee Essential hypertension Excessive bleeding Fatigue Former smoker Gastric reflux Gout flare Heart failure High cholesterol History of atrial fibrillation History of echocardiogram History of edema History of renal disease History of steroid therapy History of stress test HTN (hypertension) Hyperlipidemia Hypertensive urgency Hypokalemia Inability to walk Inflammatory bowel disease Injury of head and neck Intractable pain Kidney stones Loss of consciousness LVH (left ventricular hypertrophy) Nonrheumatic aortic (valve) stenosis NSVT (nonsustained ventricular tachycardia) SUPA (obstructive sleep apnea) Paroxysmal atrial fibrillation Pneumonia Pneumonia Prostate cancer Prostate cancer Pulmonary hypertension Renal colic on left side Rheumatoid aortitis Rheumatoid arthritis Rhinovirus Rib pain Sepsis Severe acute respiratory syndrome coronavirus 2 (SARS-CoV-2) infection ruled out Severe sepsis Sinus drainage Sleep apnea SOB (shortness of breath) Syncope and collapse Ureterolithiasis Wears dentures Wears glasses Wears hearing aid White coat syndrome without diagnosis of hypertension Home Medications glimepiride 2 mg tablet 2 mg PO QHS diabetes 01/22/18 [History Last Taken 08/31 10/22] duloxetine 60 mg capsule,delayed release (Cymbalta) 60 mg PO DAILY depression 06/02/19 [History Last Taken 09/20/23] buspirone 7.5 mg tablet 7.5 mg PO BID depression/anxiety 04/12/21 [History Last Taken 09/20/23] latanoprost 0.005 % eye drops 1 drp LEFT EYE QPM eye health 12/22/21 [History Last Taken 03/20/23] gabapentin 600 mg tablet 300 mg PO BID neuropathy 01/26/22 [History Last Taken 09/20/23] carvedilol 25 mg tablet 25 mg PO BID HEART 10/02/22 [History Last Taken 09/20/23] losartan 100 mg tablet 100 mg PO DAILY BLOOD PRESSURE 10/02/22 [History Last Taken 09/20/23] oxybutynin chloride 10 mg tablet,extended release 24 hr 10 mg PO DAILY bladder 10/04/22 [History Last Taken 09/20/23] timolol maleate 0.5 % eye drops 1 drp LEFT EYE DAILY EYE HEALTH 10/04/22 [History Last Taken 03/20/23] apixaban 5 mg tablet 5 mg PO BID afib #180 tabs 12/03/22 [Rx Last Taken 09/20/23] rosuvastatin 20 mg tablet 10 mg PO DAILY cholesterol 03/21/23 [History Last Taken 09/20/23] fluticasone furoate 200 mcg-vilanterol 25 mcg/dose inhalation powder (Breo Ellipta) 1 inh inhalation QDAY #60 ea 04/04/23 [Rx Last Taken 09/20/23] infliximab 100 mg intravenous solution (Remicade) 100 mg IV .Q7W crohns 05/24/23 [History Last Taken 09/04/23] hydralazine 100 mg tablet 100 mg PO TID BLOOD PRESSURE #270 tabs 06/14/23 [Rx Last Taken 09/20/23] isosorbide mononitrate 60 mg tablet,extended release 24 hr 60 mg PO BID BLOOD PRESSURE #90 tabs 07/25/23 [Rx Last Taken 09/20/23] montelukast 10 mg tablet 10 mg PO QPM #30 tabs 07/25/23 [Rx Last Taken 09/20/23] amiodarone 200 mg tablet See Rx Instructions .Route .COMPLEX #45 TABLETS 08/28/23 [Rx Last Taken 09/20/23] potassium chloride 10 mEq tablet,extended release(part/cryst) 10 meq PO DAILY supplement 09/04/23 [History Last Taken 09/20/23] guaifenesin 1,200 mg tablet, extended release 12 hr (Mucus Relief ER) 1,200 mg PO BID #20 tabs 09/05/23 [Rx Last Taken 09/20/23] amlodipine 10 mg tablet 5 mg PO DAILY 09/20/23 [History Last Taken 09/20/23] quetiapine 25 mg tablet 25 mg PO DAILY 09/20/23 [History Last Taken 09/20/23] levofloxacin 750 mg tablet 750 mg PO Q48H #4 tabs 09/24/23 [Rx Last Taken Unknown] doxazosin 4 mg tablet See Rx Instructions .Route .COMPLEX #60 TABLETS 10/14/23 [Rx Last Taken Unknown] phenazopyridine 100 mg tablet 100 mg PO TID PRN pain #30 tabs 11/08/23 [Rx Last Taken Unknown] quetiapine 50 mg tablet 50 mg PO 11/11/23 [History Last Taken Unknown] Allergy/AdvReac Type Severity Reaction Status Date / Time aspirin Allergy Severe Mouth Verified 10/16/23 08:09 swelling donepezil [From Aricept] AdvReac Severe Swelling Verified 10/16/23 08:09 minoxidil AdvReac Severe swelling Verified 10/16/23 08:09 morphine AdvReac Severe UNABLE TO Verified 10/16/23 08:09 URINATE Family History Mother Heart disease Diabetes Father Heart disease Lung disease Brother Heart disease Lung disease Cancer prostate, pancreatic Sister Diabetes Cancer uterine Surgical History Cervical vertebral fusion History of back surgery History of bilateral knee replacement History of cardiac catheterization History of left heart catheterization (LHC) (~12/22/21) History of prostate biopsy History of removal of cyst Hx of colectomy Hx of cystoscopy Hx of surgical procedure Social History Smoking Status: Former smoker how long ago did patient quit smokin, 2ppd second hand exposure: Yes alcohol intake: never substance use type: does not use caffeine: Yes Type: coffee Number of servings: 2 ROS ROS ED ROS Narrative A complete review of systems was performed and is negative except as documented in the history of present illness. Some specific details below. Constitutional: No recent fevers or chills. He has had malaise that seemed worse yesterday than what has become chronic. EYE: No discharge, visual complaints, or pain. ENT: No difficulty swallowing. No swelling. No pain. No reflux symptoms. CV: See history of present illness. Respiratory: See history of present illness. GI: No abdominal pain. He also had nausea with some vomiting. : No frequency dysuria or hematuria. Musculoskeletal: No recent trauma. No pains. No swelling. Skin: No rash. Nondiaphoretic. Neuro: No weakness or numbness. Endocrine: No polyuria or polydipsia. EXAM Physical Exam Narrative Exam Narrative: CONSTITUTIONAL: Patient is nontoxic in appearance. The patient looks comfortabl e. Work of breathing looks normal. But he does look a little bit nervous. HEENT: No notable trauma. Mucous membranes moist. No sinus tenderness. No indication of pain with swallowing. EYES: No conjunctival injection. No proptosis. NECK:No JVD seen. No stridor. CARDIOVASCULAR: Borderline tachycardic rate. Regular rhythm. It sounds like the patient may have a slight systolic murmur. But over his breathing and other sounds it is occasionally hard to hear. Peripheral pulses seem equal normal and strong. RESPIRATORY: No respiratory distress. Breathing is unlabored. But the patient does have some expiratory wheezing on exam. He evidently does have an inhaler at home. But his states he does not normally wheeze and that is normally a sign of him getting an infection. GASTROINTESTINAL: Not distended. Bowel sounds are normal. No tenderness. No guarding. No rebound. No palpable mass. No bruit is heard. GENITOURINARY: No tenderness over the bladder. No CVA tenderness. MUSCULOSKELETAL: Atraumatic. Bilateral chronic and unchanged peripheral edema. No cord. No tenderness along the deep venous system. No asymmetry. No distended veins. Not mottled NEUROLOGICAL: Patient is alert and appropriate. No focal deficit noted. SKIN: No diaphoresis, pallor or mottling. PSYCHIATRIC: Patient is calm. Mood is appropriate. Const Vital Signs: 11/11/23 19:45 11/11/23 19:48 11/11/23 19:50 Temperature 96.8 F L Temperature Source Temporal Pulse Rate 101 H 94 Respiratory Rate 23 H 23 H Respiratory Pattern Normal Blood Pressure 168/130 H 186/106 H Blood Pressure Mean 142 132 Pulse Ox 86 92 Oxygen Delivery Method Room Air Nasal Cannula Oxygen Flow Rate (L/min) 2 11/11/23 20:19 11/11/23 20:17 Temperature Temperature Source Pulse Rate 104 H Respiratory Rate 24 H Respiratory Pattern Tachypnea Blood Pressure Blood Pressure Mean Pulse Ox Oxygen Delivery Method Room Air Oxygen Flow Rate (L/min) Heart Score History: Moderately Suspicious ECG: Nonspecific Repolarization Age: >/= 65 years Risk Factors: >/= 3 Risk Factors or History of CAD Score: 6 MDM MDM MDM Narrative Medical decision making narrative: Review of prior records shows: Cardiac Catheterization 12/22/2021: Coronary angiography findings; 1. Left main Short, calcified, bifurcating into LAD and the left circumflex Angiographically there is no obstructive atherosclerosis of the left main coronary artery 2. LAD, ostial?proximal 50-60%, calcified with extension of calcification to the mid LAD, rest of the LAD including mid and distal LAD normal angiographically 3. Left circumflex calcified proximally had around 50% stenosis, ostial high OM1 around 60 to 70% stenosis 4. RCA proximally had eccentric around 70% with the mid RCA occluded, K 9 POLICE OFFICER Conclusion and recommendation; This patient is allergic to aspirin and had significant coronary atherosclerosis We will continue medical treatment. He has a paroxysmal atrial fibrillation will resume Eliquis in addition to rest of his cardiac medication He will follow-up with his primary industrial automation engineer Dr. Lino[facility]. Patient's CBC shows minimal nonspecific anemia but otherwise normal. Patient's electrolytes are overall normal. Minimal elevation in creatinine at 1.4 and potassium was minimally low at 3.4 but this does not need correction. Glucose is a little high at 221 he does have a history of type 2 diabetes. Magnesium is normal. First troponin is negative at 23. My independent interpretation of the patient's EKG shows slightly poor inspiration with enlarged heart but no acute process. Final reading is similar. Up above I copy and pasted reading of a heart cath from about 2 years ago. This has multivessel disease. But he has never had any stents he says. He cannot take aspirin due to swelling of his lips and mouth and trouble breathing. But I am concerned with him having chest pain, dyspnea, vomiting, radiation to his shoulders and arms and lightheadedness that is now better. He has significant risk. Because he has a moderately good story, nonspecific EKG changes, multiple risk factors and age she actually has a heart score of 6. I have hospitalist on page to discuss bringing into the hospital for further evaluation. He did request initiating Plavix due to the patient's allergy and his symptoms and risk. We will give initial dose here in the ED. Lab Data Attestation: I reviewed the patient's lab results. Labs: Laboratory Results - last 24 hr 11/11/23 19:54 WBC 7.0 RBC 4.09 L Hgb 12.5 L Hct 38.6 L MCV 94.4 H MCH 30.6 MCHC 32.4 RDW Std Deviation 53.4 H RDW Coeff of Azeem 15.3 H Plt Count 155 MPV 11.2 Immature Gran % (Auto) 0.300 Neut % (Auto) 52.3 Lymph % (Auto) 32.6 [place] % (Auto) 11.6 H Eos % (Auto) 2.9 Baso % (Auto) 0.3 Absolute Neuts (auto) 3.7 Absolute Lymphs (auto) 2.28 Nucleated RBC % 0 Sodium 144 Potassium 3.4 L Chloride 111 H Carbon Dioxide 28.0 Anion Gap 5 BUN 16 Creatinine 1.43 H Estim Creat Clear Calc 47.81 Est GFR (MDRD) Af Amer 61 Est GFR (MDRD) Non-Af 51 L BUN/Creatinine Ratio 11.2 Glucose 221 H Calcium 9.1 Magnesium 1.9 Troponin I High Sens 23 Radiography Diagnostic Testing: Clinical Impression(s) from Imaging Studies Chest X-Ray 11/11/23 20:35 IMPRESSION: No radiographic evidence of acute cardiopulmonary disease. Electronically Signed: Graham Alfaro MD at 21:01 EST , EKG Initial EKG: Comments: My independent interpretation of the patient's EKG shows sinus rhythm with mild tachycardic rate at 103. No ventricular ectopy. No acute ST elevation or depression consistent with acute infarct although there are some nonspecific changes. Minimal nonspecific inferior changes that might be a hair different than 20 September 2023 but the rest of the EKG looks normal. IA interval is slightly long showing some slight first-degree AV block. QRS duration and QTc are not showing any significant abnormality. Discharge Plan Dx/Rx/DC Orders Clinical Impression: Diabetes, History of coronary artery disease, Chest pain, Dyspnea, Nausea & vomiting Disposition Disposition: Acute Care [facility]
[2023-11-11] MEDS: 0.9% Normal Saline (1000mL) 500 ML 1000 ML IV (20:15)
[2023-11-11 20:17] VITALS: PULSE 104; RESP 24
[2023-11-11 20:17] LABS: Absolute Lymphocyte Count 2.28 X10^3/uL (0.83-4.51); Absolute Neutrophil Count 3.7 X10^3/uL (2.0-7.7); Basophil# 0.02 X10^3/uL; Basophil% 0.3 % (0-1); Eosinophils% 2.9 % (0-5); Hematocrit 38.6 % (40-54); Hemoglobin 12.5 g/dL (13.0-16.5); Lymphocyte # 2.28 X10^3/ul (0.83-4.51); Lymphocyte % 32.6 % (19-41); Mean Corp Hgb Conc 32.4 g/dL (32-36); Mean Corpuscular Hgb 30.6 pg (27.0-32.0); Mean Corpuscular Volume 94.4 fL (80-94); Mean Platelet Vol. 11.2 fl (6.2-12.0); Monocyte# 0.81 X10^3/uL; Monocyte% 11.6 % (0-10); NRBC Flagged by Analyzer 0 % (0-5); Neutrophil # 3.66 X10^3/uL (2.7-7.7); Neutrophil % 52.3 % (47-70); Platelet Count 155 K/mm3 (150-450); RBC Distribution Width CV 15.3 % (11.6-14.6); RBC Distribution Width SD 53.4 fl (35.1-43.9); Red Blood Count 4.09 M/mm3 (4.6-6.2)
[2023-11-11] MEDS: Ipratropium/Albuterol Sulfate 3 ML AMPUL.NEB INHALATION (20:17)
[2023-11-11] MEDS: Ondansetron 4 MG/2 ML Vial IV (20:17)
--- NOTE | 2023-11-11 20:35 | RAD_ITS ---
EXAM: XR CHEST, 1 VIEW CLINICAL INDICATION: chest pain TECHNIQUE: Frontal view of the chest. COMPARISON: 09/21/2023 FINDINGS: LUNGS AND PLEURAL SPACES: Unremarkable. No consolidation or edema. No pneumothorax. No effusion. HEART: Unremarkable. Cardiac silhouette not enlarged. MEDIASTINUM: Central airways and mediastinal contour are unremarkable. BONES/JOINTS: Unremarkable. No acute fracture. SOFT TISSUES: Unremarkable. RAD/Chest 1 View (Portable) IMPRESSION: No radiographic evidence of acute cardiopulmonary disease. Electronically Signed: Graham Alfaro MD at 21:01 EST ,
[2023-11-11 20:36] LABS: Anion Gap 5 (5-15); BUN 16 mg/dL (7-18); BUN/Creat Ratio 11.2 RATIO (10-20); Calcium,Total 9.1 mg/dL (8.5-10.1); Chloride 111 mmol/L (98-107); Creatinine, Serum 1.43 mg/dL (0.70-1.30); EST Glomerular Filtration Rate 51 mL/min (>60); Est Glom Filt Rate - Afr Amer 61 mL/min (>60); Estimated Creatinine Clearance 47.81 ml/min; Glucose 221 mg/dL (74-106); Magnesium 1.9 mg/dL (1.6-2.6); Potassium 3.4 mmol/L (3.5-5.1); Sodium Level 144 mmol/L (136-145); Troponin-I HS (w/2H Reflex) 23 pg/mL (3.0-78.0)
--- OUTSIDE RECORDS SUMMARY | 2023-11-11 20:54 | XMS RPT_ITS | CCD ---
Author Name Unknown Address [address] [place] [address] Organization [facility] Care Team Providers Care Stoneworking Belt Sander Name Role Phone Anabelle Mead Unavailable Asuncion CUNNINGHAM, Yasmin Ambrocio Unavailable Unavailable Gricel CUNNINGHAM, Faye Curry Unavailable Asuncion CUNNINGHAM, Yasmin Ambrocio Unavailable Unavailable DeFinis, Harumi Y Unavailable Unavailable Chong, Kaylene Unavailable Unavailable Allergies Allergy Classification Reported Allergen(s) Allergy Type Date of Onset Reaction(s) Facility (6 sources) aspirin drug allergy 12-12-2016 Mouth Swelling [facility] Work Phone: (6 sources) morphine drug allergy 12-12-2016 GI Problems [facility] [employer] Work Phone: Medications Completed/Discontinued Medications Medication Drug Class(es) Dates Sig (Normalized) Sig (Original) AMLODIPINE BESY-BENAZEPRIL HCL (6 sources) Dihydropyridine Calcium Channel Kenji, Angiotensin Converting Enzyme Inhibitor Start: 12-12-2016 take 1 tablet by mouth once daily LOTREL 10-40 MG CAPS One tablet by mouth daily AMLODIPINE BESY-BENAZEPRIL HCL [id number] Faye Monsalve RN Problems Active Problems Problem [...] (Body Mass Index) 34.12 kg/m2 Kaylene Fernandes [employer] Work Phone: 03-22-2017 09:32-0400 BP Diastolic 88 mm[Hg] Kaylene Chong [employer] Work Phone: 03-22-2017 09:32-0400 BP Systolic 146 mm[Hg] Kaylene Chong [employer] Work Phone: 03-22-2017 09:32-0400 Height 167.64 cm Kaylene Chong [employer] Work Phone: 03-22-2017 09:32-0400 Pulse (Heart Rate) 72 /min Kaylene Chong [employer] Work Phone: 03-22-2017 09:32-0400 Respiratory Rate 20 /min Kaylene Chong [facility] Work Phone: 03-22-2017 09:32-0400 Weight 95.89 kg Kaylene Chong [facility] Work Phone: 12-13-2016 14:06-0400 Heart rate 71 /min Natalee Hernandez [facility] Work Phone: 12-13-2016 13:33-0400 BMI (Body Mass Index) 34.21 kg/m2 Yasmin Roland RN [facility] Work Phone: 12-13-2016 13:33-0400 BP Diastolic 78 mm[Hg] Yasmin Roland RN [facility] Work Phone: 12-13-2016 13:33-0400 BP Systolic 138 mm[Hg] Yasmin Roland RN [facility] Work Phone: 12-13-2016 13:33-0400 Height 167.64 cm Yasmin Roland RN [facility] Work Phone: 12-13-2016 13:33-0400 Pulse [...] Phone: Start: 03-22-2017 End: 03-22-2017 PFM PFM [employer] Work Phone: Start: 12-13-2016 End: 02-07-2017 *BMP *BMP [employer] Work Phone: Start: 12-13-2016 End: 02-07-2017 CBC W Auto Differential panel - Blood *CBC without Diff [employer] Work Phone: Start: 12-13-2016 End: 12-13-2016 Electrocardiogram, complete EKG (In office) [employer] Work Phone: Start: 12-13-2016 End: 12-13-2016 Follow Up Appt 3 months Follow Up Appt 3 months [employer] Work Phone: Start: 12-13-2016 End: 12-13-2016 MMM MMM [employer] Work Phone: Start: 12-13-2016 End: 12-13-2016 Remote 30 day ecg rev/report 30 Day Holter Monitor [employer] Work Phone: Start: 12-13-2016 End: 12-13-2016 Tilt table evaluation Tilt Table Test [employer] Work Phone: Summary Purpose Family History No Family History Records FoundNo Family History Records Found Advance Directives No Advanced Directives Records FoundNo Advanced Directives Records Found Hospital Course Note HNO ID: [id number] Author: Erica Greco MD Service: Hospital Medicine [...] BE BASED ON THE PRIMARY CLINICAL RECORDS. [facility] [employer] [facility]. provides no warranty or guarantee of the accuracy or completeness of information in this document.
--- NOTE | 2023-11-11 22:04 | PCM.HP.STD ---
[facility] - General General Date of Admission: 11/11/23 Date of Service: 11/11/23 Chief Complaint: Chest pain HPI Narrative MEGAN HOLLOWAY, is a 78 M with a past medical history of essential hypertension, obesity; with BMI 35.4 this admission, obstructive sleep apnea; on BiPAP, history of pulmonary hypertension, remote history of tobacco abuse (quit 1975), paroxysmal atrial fibrillation; on Eliquis and amiodarone, history of NSVT, history of rheumatoid aortitis, history of allergy to aspirin; which causes mouth/tongue swelling, diabetes mellitus type 2; of unknown control, history of prostate cancer; s/p 20 radiation treatments, history Crohn's disease; on infliximab, chronic gout, history of nonrheumatic aortic stenosis, mild asthma, history of renal calculi, history of colonic diverticulosis, history of colectomy, history of pneumonia, history of COVID-19 (July 2023), generalized anxiety with depression, glaucoma, osteoarthritis; s/p cervical fusion and bilateral total knee replacements and history of coronary artery disease; without stent placement with history of left heart catheterization on December 22, 2021 who presents to [facility] ER complaining of chest pain. Mr. Holloway reports his symptoms began earlier in the day on 11/11/2023 while he was at rest with the abrupt onset of chest pain while he was sitting in his chair. He describes the chest pain as left-sided, anterior, radiating up into his shoulders and both arms with a heavy sensation with nothing seeming to make the pain better or worse. He also admits to associated shortness of breath slightly worse than his baseline. He admits to nausea with vomiting x 2 with bilious emesis with no blood seen and no related abdominal pain. He does admit to intermittent lightheadedness and dizziness and he claims he is chest pain-free at this time. In the ER he was noted to have a positive third troponin of 146 pg/mL and a nonspecific EKG consistent with a suspected NSTEMI with laboratory evidence of mild hypokalemia of 3.4 mmol/L present on admission and he was then admitted to the PCU for ongoing care for status expected to be greater than 48 hours. [facility] Medical History (Updated 11/12/23 @ 03:[address] Laureano Lucero, DO) Abnormal stress test Acute bronchitis with bronchospasm Acute respiratory insufficiency Anticoagulant long-term use Anxiety Aortic stenosis Arthralgia of foot, left Arthralgia of right knee Arthritis Asthma Asymptomatic hypertensive urgency Atherosclerotic heart disease of [place] coronary artery without angina pectoris Atrial fibrillation with RVR Back pain BiPAP (biphasic positive airway pressure) dependence Bronchitis Cancer of prostate with intermediate recurrence risk (stage T2b-c or Liza 7 or PSA 10-20) Cardiology follow-up encounter Closed head injury Colitis Concussion COVID-19 virus infection CPAP (continuous positive airway pressure) dependence Dementia Depression Diverticula of colon DM2 (diabetes mellitus, type 2) Dyspnea on exertion Dysuria Effusion, left knee Effusion, right knee Essential hypertension Excessive bleeding Fatigue Former smoker Gastric reflux Gout flare Heart failure High cholesterol History of atrial fibrillation History of echocardiogram History of edema History of renal disease History of steroid therapy History of stress test HTN (hypertension) Hyperlipidemia Hypertensive urgency Hypokalemia Inability to walk Inflammatory bowel disease Injury of head and neck Intractable pain Kidney stones Loss of consciousness LVH (left ventricular hypertrophy) Nonrheumatic aortic (valve) stenosis NSVT (nonsustained ventricular tachycardia) SUPA (obstructive sleep apnea) Paroxysmal atrial fibrillation Pneumonia Pneumonia Prostate cancer Prostate cancer Pulmonary hypertension Renal colic on left side Rheumatoid aortitis Rheumatoid arthritis Rhinovirus Rib pain Sepsis Severe acute respiratory syndrome coronavirus 2 (SARS-CoV-2) infection ruled out Severe sepsis Sinus drainage Sleep apnea SOB (shortness of breath) Syncope and collapse Ureterolithiasis Wears dentures Wears glasses Wears hearing aid White coat syndrome without diagnosis of hypertension Home Medications glimepiride 2 mg tablet 2 mg PO QHS diabetes 01/22/18 [History Last Taken 09/19/23] duloxetine 60 mg capsule,delayed release (Cymbalta) 60 mg PO DAILY depression 06/02/19 [History Last Taken 09/20/23] buspirone 7.5 mg tablet 7.5 mg PO BID depression/anxiety 04/12/21 [History Last Taken 09/20/23] latanoprost 0.005 % eye drops 1 drp LEFT EYE QPM eye health 12/22/21 [History Last Taken 03/20/23] gabapentin 600 mg tablet 300 mg PO BID neuropathy 01/26/22 [History Last Taken 11/11/23 17:00 300 mg] carvedilol 25 mg tablet 25 mg PO BID HEART 10/02/22 [History Last Taken 09/20/23] losartan 100 mg tablet 100 mg PO DAILY BLOOD PRESSURE 10/02/22 [History Last Taken 09/20/23] oxybutynin chloride 10 mg tablet,extended release 24 hr 10 mg PO DAILY bladder 10/04/22 [History Last Taken 09/20/23] timolol maleate 0.5 % eye drops 1 drp LEFT EYE DAILY EYE HEALTH 10/04/22 [History Last Taken 03/20/23] apixaban 5 mg tablet 5 mg PO BID afib #180 tabs 12/03/22 [Rx Last Taken 09/20/23] rosuvastatin 20 mg tablet 10 mg PO DAILY cholesterol 03/21/23 [History Last Taken 09/20/23] fluticasone furoate 200 mcg-vilanterol 25 mcg/dose inhalation powder (Breo Ellipta) 1 inh inhalation QDAY #60 ea 04/04/23 [Rx Last Taken 09/20/23] infliximab 100 mg intravenous solution (Remicade) 100 mg IV .Q7W crohns 05/24/23 [History Last Taken 09/04/23] hydralazine 100 mg tablet 100 mg PO TID BLOOD PRESSURE #270 tabs 06/14/23 [Rx Last Taken 09/20/23] isosorbide mononitrate 60 mg tablet,extended release 24 hr 60 mg PO BID BLOOD PRESSURE #90 tabs 07/25/23 [Rx Last Taken 09/20/23] montelukast 10 mg tablet 10 mg PO QPM #30 tabs 07/25/23 [Rx Last Taken 09/20/23] amiodarone 200 mg tablet See Rx Instructions .Route .COMPLEX #45 TABLETS 08/28/23 [Rx Last Taken 09/20/23] potassium chloride 10 mEq tablet,extended release(part/cryst) 10 meq PO DAILY supplement 09/04/23 [History Last Taken 09/20/23] guaifenesin 1,200 mg tablet, extended release 12 hr (Mucus Relief ER) 1,200 mg PO BID #20 tabs 09/05/23 [Rx Last Taken 09/20/23] amlodipine 10 mg tablet 5 mg PO DAILY 09/20/23 [History Last Taken 09/20/23] quetiapine 25 mg tablet 25 mg PO DAILY 09/20/23 [History Last Taken 09/20/23] levofloxacin 750 mg tablet 750 mg PO Q48H #4 tabs 09/24/23 [Rx Last Taken Unknown] doxazosin 4 mg tablet See Rx Instructions .Route .COMPLEX #60 TABLETS 10/14/23 [Rx Last Taken Unknown] phenazopyridine 100 mg tablet 100 mg PO TID PRN pain #30 tabs 11/08/23 [Rx Last Taken Unknown] quetiapine 50 mg tablet 50 mg PO 11/11/23 [History Last Taken Unknown] Allergy/AdvReac Type Severity Reaction Status Date / Time aspirin Allergy Severe Mouth Verified 10/16/23 08:09 swelling donepezil [From Aricept] AdvReac Severe Swelling Verified 10/16/23 08:09 minoxidil AdvReac Severe swelling Verified 10/16/23 08:09 morphine AdvReac Severe UNABLE TO Verified 10/16/23 08:09 URINATE Family History Mother Heart disease Diabetes Father Heart disease Lung disease Brother Heart disease Lung disease Cancer prostate, pancreatic Sister Diabetes Cancer uterine Surgical History Cervical vertebral fusion History of back surgery History of bilateral knee replacement History of cardiac catheterization History of left heart catheterization (LHC) (~12/22/21) History of prostate biopsy History of removal of cyst Hx of colectomy Hx of cystoscopy Hx of surgical procedure Social History Smoking Status: Former smoker how long ago did patient quit smokin, 2ppd second hand exposure: Yes alcohol intake: never substance use type: does not use caffeine: Yes Type: coffee Number of servings: 2 ROS ROS Narrative Review of systems: Constitutional: No recent fevers or chills. He has had malaise that seemed worse yesterday. EYE: No visual complaints, Discharge from eyes discharge from eyes or pain. ENT: No difficulty swallowing or sore throat. CV: Patient admits to chest pain as per HPI. Respiratory: Patient admits to mild shortness of breath as per HPI. GI: He had nausea with some vomiting but denies abdominal pain. : No frequency dysuria or hematuria. Musculoskeletal: No recent trauma. No pains. No swelling. Skin: No rash. Non-diaphoretic. Neuro: No weakness or numbness. Endocrine: No polyuria, polydipsia or polyphagia. Psychiatric: Patient denies uncontrolled depression or anxiety. 14 point review systems otherwise negative except for positives noted above in HPI. Vital Signs Vital Signs Vital Signs: 11/11/23 19:45 11/11/23 19:48 11/11/23 19:50 Temperature 96.8 F L Temperature Source Temporal Pulse Rate 101 H 94 Respiratory Rate 23 H 23 H Respiratory Pattern Normal Blood Pressure 168/130 H 186/106 H Blood Pressure Mean 142 132 Pulse Ox 86 92 Oxygen Delivery Method Room Air Nasal Cannula Oxygen Flow Rate (L/min) 2 11/11/23 20:19 11/11/23 20:17 Temperature Temperature Source Pulse Rate 104 H Respiratory Rate 24 H Respiratory Pattern Tachypnea Blood Pressure Blood Pressure Mean Pulse Ox Oxygen Delivery Method Room Air Oxygen Flow Rate (L/min) Weight Weight: 226 lb 3.108 oz Body Mass Index (BMI) 35.4 Physical Exam Const alert, oriented x3 and no apparent distress Constitutional Narrative: Patient is obese nontoxic in appearance. General Appearance: cooperative HEENT normocephalic, head/scalp atraumatic, hearing grossly normal bilaterally and moist oral mucous membranes Eyes PERRL, EOMs intact bilaterally and conjunctivae normal Neck no lymphadenopathy and supple Resp normal respiratory effort, no retractions and no use of accessory muscles Resp Narrative: Mild expiratory wheezing noted on exam. Auscultation: wheezes Cardio regular rate and regular rhythm Cardio Narrative: Patient has very slight systolic murmur. GI normal to inspection, nondistended, normoactive bowel sounds, soft to palpation and non-tender Extremity normal to inspection and full ROM Skin Skin Narrative: Patient has no evidence of rash or abscess at this time. Neuro oriented x3, CN's II-XII intact bilaterally, moves all extremities and no focal motor deficits Sensorium / Orientation: awake, alert, oriented to person, oriented to place and oriented to time Speech: speech normal Motor Exam: strength 5/5 throughout Psych Mood & Affect: anxious Results Medical Records Data Attestation: I reviewed the patient's medical records Lab / Micro Data Attestation: I reviewed the patient's lab results. 11/11/23 19:54 11/11/23 19:54 Labs: Laboratory Results - last 24 hr 11/11/23 19:54: WBC 7.0, RBC 4.09 L, Hgb 12.5 L, Hct 38.6 L, MCV 94.4 H, MCH 30.6, MCHC 32.4, RDW Std Deviation 53.4 H, RDW Coeff of Azeem 15.3 H, Plt Count 155, MPV 11.2, Immature Gran % (Auto) 0.300, Neut % (Auto) 52.3, Lymph % (Auto) 32.6, [place] % (Auto) 11.6 H, Eos % (Auto) 2.9, Baso % (Auto) 0.3, Absolute Neuts (auto) 3.7, Absolute Lymphs (auto) 2.28, Nucleated RBC % 0, Sodium 144, Potassium 3.4 L, Chloride 111 H, Carbon Dioxide 28.0, Anion Gap 5, BUN 16, Creatinine 1.43 H, Estim Creat Clear Calc 47.81, Est GFR (MDRD) Af Amer 61, Est GFR (MDRD) Non-Af 51 L, BUN/Creatinine Ratio 11.2, Glucose 221 H, Calcium 9.1, Magnesium 1.9, Troponin I High Sens 23 Micro: Microbiology 11/11/23 20:20 Mucosa - Nose SARS-CoV-2, Influenza & RSV (PCR) - Final Imaging Radiology Impression Chest X-Ray 11/11/23 20:35 IMPRESSION: No radiographic evidence of acute cardiopulmonary disease. Electronically Signed: Graham Alfaro MD at 21:01 EST , Assessment & Plan Assessment/Plan (1) NSTEMI, initial episode of care: (2) History of coronary artery disease: (3) Hypokalemia: PLAN: Plan 1. NSTEMI with Chest pain in the setting of known CAD; without stent placement with history of left heart catheterization on December 22, 2021 - Admit to PCU. Continue Plavix begun in the ER plus resume statin and add full-dose Lovenox. Serialize troponin. Check echocardiogram to evaluate left ventricular ejection fraction. Avoid aspirin as patient has listed allergy to this agent causing mouth swelling. Finally, we will consult the shell molding roller blast operator on-call to see this patient on-rounds in the AM for further recommendations regarding LHC this admission with help appreciated in advance. 2. Hypokalemia of 3.4 mmol/L present on admission complicating #1 - Give supplemental potassium chloride and then recheck BMP in the a.m. to ensure improvement. 3. History of rheumatoid aortitis in the setting of known RA - Echocardiogram pending for #1. 4. Essential hypertension - Continue home medications as previous plus give as needed IV hydralazine for systolic blood pressure greater than 160 mmHg. 5. Obesity; with BMI 35.4 this admission plus obstructive sleep apnea; on BiPAP - Weight loss will be recommended. Resume BiPAP as previous. Check TSH. 6. History of pulmonary hypertension - Noted. 7. Remote history of tobacco abuse (quit 1975) - Noted. 8. Paroxysmal atrial fibrillation; on Eliquis and amiodarone - Stable. Continue home medications as previous. 9. History of NSVT - Noted. 10. History of allergy to aspirin; which causes mouth/tongue swelling - Avoid this agent as noted above. Plavix will be substituted. 11. Diabetes mellitus type 2; of unknown control - ADA diet. FSBS every 6 hours plus sliding scale insulin. Check hemoglobin A1c. 12. History of prostate cancer; s/p 20 radiation treatments - Noted. 13. Chronic gout - Stable with no evidence of acute flare. 14. History of nonrheumatic aortic stenosis - Echocardiogram pending for #1. 15. Mild asthma - Stable with mild wheezing noted on admission. Give as needed nebulizers. 16. History of renal calculi - Noted. 17. History of colonic diverticulosis; s/p colectomy - Noted. 18. History of pneumonia - Noted. 19. History of COVID-19 (July 2023) - Noted. 20. Generalized anxiety with depression - Resume home regimen as previous. 21. Glaucoma - Continue eye drops. 22. Osteoarthritis; s/p cervical fusion and bilateral total knee replacements - Noted. 23. DVT prophylaxis - Patient is on full-dose Lovenox for #1. Total time: Approximately 55 minutes. Charges/Coding Visit Charges Inpatient E&M: 77836 Init Hosp L2
[2023-11-11 22:14] LABS: Reflex Troponin-HS? (from REC) Y
--- OUTSIDE RECORDS SUMMARY | 2023-11-11 22:21 | XMS RPT_ITS | CCD ---
Author Name Unknown Address [address] [place] [address] Organization [facility] Care Team Providers Care Photographic Lithographer Name Role Phone Anabelle Mead Unavailable Asuncion CUNNINGHAM, Yasmin Ambrocio Unavailable Unavailable Gricel CUNNINGHAM, Faye Curry Unavailable Asuncion CUNNINGHAM, Yasmin Ambrocio Unavailable Unavailable DeFinis, Harumi Y Unavailable Unavailable Chong, Kaylene Unavailable Unavailable Allergies Allergy Classification Reported Allergen(s) Allergy Type Date of Onset Reaction(s) Facility (6 sources) aspirin drug allergy 12-12-2016 Mouth Swelling [facility] Work Phone: (6 sources) morphine drug allergy 12-12-2016 GI Problems [facility] Work Phone: Medications Completed/Discontinued Medications Medication Drug Class(es) Dates Sig (Normalized) Sig (Original) AMLODIPINE BESY-BENAZEPRIL HCL (6 sources) Dihydropyridine Calcium Channel Kenji, Angiotensin Converting Enzyme Inhibitor Start: 12-12-2016 take 1 tablet by mouth once daily LOTREL 10-40 MG CAPS One tablet by mouth daily AMLODIPINE BESY-BENAZEPRIL HCL [id number] Faye Monsalve RN Problems Active Problems Problem [...] (Body Mass Index) 34.12 kg/m2 Kaylene Fernandes [facility] Work Phone: 03-22-2017 09:32-0400 BP Diastolic 88 mm[Hg] Kaylene Chong [facility] Work Phone: 03-22-2017 09:32-0400 BP Systolic 146 mm[Hg] Kaylene Chong [facility] Work Phone: 03-22-2017 09:32-0400 Height 167.64 cm Kaylene Chong [facility] Work Phone: 03-22-2017 09:32-0400 Pulse (Heart Rate) 72 /min Kaylene Chong [facility] Work Phone: 03-22-2017 09:32-0400 Respiratory Rate 20 /min Kaylene Chong [facility] Work Phone: 03-22-2017 09:32-0400 Weight 95.89 kg Kaylene Chong [facility] Work Phone: 12-13-2016 14:06-0400 Heart rate 71 /min Natalee Hernandez [facility] Work Phone: 12-13-2016 13:33-0400 BMI (Body Mass Index) 34.21 kg/m2 Yasmin Roland RN [facility] Work Phone: 12-13-2016 13:33-0400 BP Diastolic 78 mm[Hg] Yasmin Roland RN [facility] Work Phone: 12-13-2016 13:33-0400 BP Systolic 138 mm[Hg] Yasmin Roland RN [facility] Work Phone: 12-13-2016 13:33-0400 Height 167.64 cm Yasmin Roland RN [facility] Work Phone: 12-13-2016 13:33-0400 Pulse [...] Phone: Start: 03-22-2017 End: 03-22-2017 PFM PFM [facility] Work Phone: Start: 12-13-2016 End: 02-07-2017 *BMP *BMP [facility] Work Phone: Start: 12-13-2016 End: 02-07-2017 CBC W Auto Differential panel - Blood *CBC without Diff [facility] Work Phone: Start: 12-13-2016 End: 12-13-2016 Electrocardiogram, complete EKG (In office) [facility] Work Phone: Start: 12-13-2016 End: 12-13-2016 Follow Up Appt 3 months Follow Up Appt 3 months [facility] Work Phone: Start: 12-13-2016 End: 12-13-2016 MMM MMM [facility] Work Phone: Start: 12-13-2016 End: 12-13-2016 Remote 30 day ecg rev/report 30 Day Holter Monitor [facility] Work Phone: Start: 12-13-2016 End: 12-13-2016 Tilt table evaluation Tilt Table Test [facility] Work Phone: Summary Purpose Family History No Family History Records FoundNo Family History Records Found Advance Directives No Advanced Directives Records FoundNo Advanced Directives Records Found Hospital Course Note HNO ID: [id number] Author: Erica Greco MD Service: Hospital Medicine [...] DATE CREATED AUTHOR AUTHOR'S ORGANIZ ATION 02/25/2020 [facility] FOR RECORDS PERTAINING TO PATIENTS WHO ARE [...] BE BASED ON THE PRIMARY CLINICAL RECORDS. [facility] [employer] [facility]. provides no warranty or guarantee of the accuracy or completeness of information in this document.
[2023-11-11] MEDS: Clopidogrel Bisulfate 75 MG Tablet PO (22:29)
[2023-11-11 22:37] VITALS: BP 163/84; PULSE 89; RESP 24; TEMP 36.7; O2SAT 95
--- NOTE | 2023-11-11 22:48 | EKG12_ITS ---
Test Reason : AM EKG Blood Pressure : / mmHG Vent. Rate : 067 BPM Atrial Rate : 067 BPM P-R Int : 208 ms QRS Dur : 086 ms QT Int : 444 ms P-R-T Axes : -03 -44 -23 degrees QTc Int : 469 ms Normal sinus rhythm Left axis deviation Cannot rule out Inferior infarct , age undetermined Anterolateral infarct , age undetermined Abnormal ECG Confirmed by Miguel Ashton ([id number]), video editor CRISTI ROOT ([id number]) on 11/12/2023 1:51:17 PM Referred By: FREIRE Confirmed By:Miguel Ashton
--- NOTE | 2023-11-11 22:48 | ECHOCS_ITS ---
Reason For Study: CHF Procedure This was a 2D Doppler, Color Flow transthoracic echocardiogram. The study was technically difficult. Due to body habitus. Contrast injection was performed. Exam performed portable in patient room. Left Ventricle Normal LV size. The estimated ejection fraction is 55 %. Diastolic function is indeterminate. No regional wall motion abnormalities noted. Right Ventricle Normal RV size. Normal systolic function. Atria Normal left atrium. Normal right atrium. No doppler evidence for ASD. Mitral Valve There is mild mitral annular calcification. There is no mitral valve stenosis. No mitral valve insufficiency. Tricuspid Valve There is no tricuspid stenosis. No tricuspid valve insufficiency. Unable to estimate RV systolic pressure due to insufficient tricuspid regurgitant envelope. Aortic Valve Trisinus/trileaflet aortic valve. Aortic sclerosis, no stenosis. There is no aortic stenosis. No aortic valve insufficiency. Pulmonic Valve There is no pulmonic valvular stenosis. No pulmonic valve insufficiency. Great Vessels Normal aortic root. Pericardium/Pleural Small pericardial effusion. Medication Diluted definity 2.0ml given slow IV push to enhance endocardial definition. MMode/2D Measurements & Calculations LVIDd: 5.1 cm IVSd: 1.4 cm Ao root diam: 4.0 cm LVIDs: 3.7 cm LVPWd: 1.1 cm FS: 27.1 % LAV(MOD-bp): 52.7 ml LVAd ap4: 39.0 cm2 LVAd ap2: 29.8 cm2 LAV(MOD-bp) Indexed: 25.1 ml/m2 LVLd ap4: 9.0 cm LVLd ap2: 8.8 cm LAV(MOD-sp2): 51.0 ml EDV(MOD-sp4): 139.4 ml EDV(MOD-sp2): 84.1 ml LAV(MOD-sp4): 51.0 ml EDV(sp4-el): 142.3 ml EDV(sp2-el): 85.8 ml LVAs ap4: 18.5 cm2 LVAs ap2: 16.2 cm2 LVLs ap4: 6.7 cm LVLs ap2: 6.5 cm ESV(MOD-sp4): 43.4 ml ESV(MOD-sp2): 34.2 ml ESV(sp4-el): 43.4 ml ESV(sp2-el): 34.3 ml EF(MOD-sp4): 68.9 % EF(MOD-sp2): 59.4 % EF(sp4-el): 69.5 % SV(MOD-sp4): 96.0 ml SV(MOD-sp2): 49.9 ml SV(sp4-el): 99.0 ml LA A4 area: 17.8 cm2 LA dimension(2D): 5.1 cm TAPSE: 2.5 cm Time Measurements MV dec time: 0.32 sec Doppler Measurements & Calculations MV E max roge: 103.4 cm/sec Lat Peak E' Roge: 5.7 cm/sec Med Peak E' Roge: 5.7 cm/sec MV A max roge: 126.6 cm/sec E/E' lat: 18.1 E/E' med: 18.1 MV E/A: 0.82 MV V2 max: 126.9 cm/sec MV P1/2t max roge: 111.0 cm/sec Ao V2 max: 190.3 cm/sec MV max P.4 mmHg MV P1/2t: 95.2 msec Ao max P.5 mmHg MV V2 mean: 76.5 cm/sec Ao V2 mean: 128.3 cm/sec MV mean P.6 mmHg MV dec slope: 341.3 cm/sec2 Ao mean P.5 mmHg MV V2 VTI: 34.7 cm MVA(P1/2t): 2.3 cm2 Ao V2 VTI: 41.7 cm AV (velocity ratio): 0.65 LV V1 max: 110.0 cm/sec PA V2 max: 110.4 cm/sec TR max roge: 205.1 cm/sec LV V1 max P.8 mmHg PA V2 mean: 75.5 cm/sec TR max P.8 mmHg LV V1 mean P.6 mmHg LV V1 mean: 75.9 cm/sec LV V1 VTI: 27.0 cm ECHO/Echo Complete W/ Contrast Interpretation Summary The estimated ejection fraction is 55 %. Diastolic function is indeterminate. Small pericardial effusion. Ordering Physician: Laureano Lucero Referring Physician: Jayme Yang Performed By: Terri Butler, RDCS, RVT
[2023-11-11 22:52] VITALS: BMI 34.3
[2023-11-11 22:55] VITALS: BP 179/97; PULSE 85; RESP 16; TEMP 36.4; O2SAT 95
[2023-11-11 23:07] LABS: Troponin-I HS 53 pg/mL (3.0-78.0)
[2023-11-11 23:11] LABS: Cholesterol 148 mg/dL (200); High Density Lipoprotein 33 mg/dL; Triglycerides 255 mg/dL; Very Low Density Lipoprotein 51 mg/dL (5-40)
--- OUTSIDE RECORDS SUMMARY | 2023-11-11 23:18 | XMS RPT_ITS | CCD ---
Author Name Unknown Address [address] [place] [address] Organization [facility] Care Team Providers Care Table Games Floor Supervisor Name Role Phone Anabelle Mead Unavailable Asuncion CUNNINGHAM, Yasmin Ambrocio Unavailable Unavailable Gricel CUNNINGHAM, Faye Curry Unavailable Asuncion CUNNINGHAM, Yasmin Ambrocio Unavailable Unavailable DeFinis, Harumi Y Unavailable Unavailable Chong, Kaylene Unavailable Unavailable Allergies Allergy Classification Reported Allergen(s) Allergy Type Date of Onset Reaction(s) Facility (6 sources) aspirin drug allergy 12-12-2016 Mouth Swelling [facility] Work Phone: (6 sources) morphine drug allergy 12-12-2016 GI Problems [facility] Work Phone: Medications Completed/Discontinued Medications Medication Drug Class(es) Dates Sig (Normalized) Sig (Original) AMLODIPINE BESY-BENAZEPRIL HCL (6 sources) Dihydropyridine Calcium Channel Kenji, Angiotensin Converting Enzyme Inhibitor Start: 12-12-2016 take 1 tablet by mouth once daily LOTREL 10-40 MG CAPS One tablet by mouth daily AMLODIPINE BESY-BENAZEPRIL HCL [id number] Faye Monsalve RN Problems Active Problems Problem [...] (Body Mass Index) 34.12 kg/m2 Kaylene Fernandes [facility] Work Phone: 03-22-2017 09:32-0400 BP Diastolic 88 mm[Hg] Kaylene Chong [employer] Work Phone: 03-22-2017 09:32-0400 BP Systolic 146 mm[Hg] Kaylene Chong [employer] [facility] Work Phone: 03-22-2017 09:32-0400 Height 167.64 cm Kaylene Chong [employer] [facility] Work Phone: 03-22-2017 09:32-0400 Pulse (Heart Rate) 72 /min Kaylene Chong [employer] Work Phone: 03-22-2017 09:32-0400 Respiratory Rate 20 /min Kaylene Chong [facility] Work Phone: 03-22-2017 09:32-0400 Weight 95.89 kg Kaylene Chong [facility] Work Phone: 12-13-2016 14:06-0400 Heart rate 71 /min Natalee Hernandez [facility] Work Phone: 12-13-2016 13:33-0400 BMI (Body Mass Index) 34.21 kg/m2 Yasmin Roland RN [facility] Work Phone: 12-13-2016 13:33-0400 BP Diastolic 78 mm[Hg] Yasmin Roland RN [facility] Work Phone: 12-13-2016 13:33-0400 BP Systolic 138 mm[Hg] Yasmin Roland RN [facility] Work Phone: 12-13-2016 13:33-0400 Height 167.64 cm Yasmin Roland RN [facility] Work Phone: 12-13-2016 13:33-0400 Pulse [...] Phone: Start: 03-22-2017 End: 03-22-2017 PFM PFM [employer] Work Phone: Start: 12-13-2016 End: 02-07-2017 *BMP *BMP [facility] Work Phone: Start: 12-13-2016 End: 02-07-2017 CBC W Auto Differential panel - Blood *CBC without Diff [facility] Work Phone: Start: 12-13-2016 End: 12-13-2016 Electrocardiogram, complete EKG (In office) [facility] Work Phone: Start: 12-13-2016 End: 12-13-2016 Follow Up Appt 3 months Follow Up Appt 3 months [facility] Work Phone: Start: 12-13-2016 End: 12-13-2016 MMM MMM [facility] Work Phone: Start: 12-13-2016 End: 12-13-2016 Remote 30 day ecg rev/report 30 Day Holter Monitor [employer] Work Phone: Start: 12-13-2016 End: 12-13-2016 Tilt table evaluation Tilt Table Test [employer] [facility] Work Phone: Summary Purpose Family History No Family History Records FoundNo Family History Records Found Advance Directives No Advanced Directives Records FoundNo Advanced Directives Records Found Hospital Course Note HNO ID: [id number] Author: Erica Greco MD Service: Hospital Medicine [...] BE BASED ON THE PRIMARY CLINICAL RECORDS. [facility] [employer] [facility]. provides no warranty or guarantee of the accuracy or completeness of information in this document.
[2023-11-12] VITALS (16 sets, daily range): BP systolic 155–185; BP diastolic 77–101; PULSE 66–100; RESP 16–20; TEMP 36.3–36.7; O2SAT 91–95
[2023-11-12] MEDS: Potassium Chloride Oral Tablet 20 MEQ 60 MEQ PO (00:23)
[2023-11-12 03:31] LABS: Troponin-I HS 146 pg/mL (3.0-78.0)
[2023-11-12] MEDS: Enoxaparin 100 MG/ML Syringe SC ×2 (03:59→09:51)
--- OUTSIDE RECORDS SUMMARY | 2023-11-12 04:11 | XMS RPT_ITS | CCD ---
Author Name Unknown Address [address] [place] [address] Organization [facility] Care Team Providers Care Performance Improvement Manager Name Role Phone Anabelle Mead Unavailable Asuncion CUNNINGHAM, Yasmin Ambrocio Unavailable Unavailable Gricel CUNNINGHAM, Faye Curry Unavailable [phone] Asuncion CUNNING[place]AM, Yasmin Ambrocio Unavailable Unavailable DeFinis, Harumi Y Unavailable Unavailable Chong, Kaylene Unavailable Unavailable Allergies Allergy Classification Reported Allergen(s) Allergy Type Date of Onset Reaction(s) Facility (6 sources) aspirin drug allergy 12-12-2016 Mouth Swelling [facility] Work Phone: (6 sources) morphine drug allergy 12-12-2016 GI Problems [facility] [employer] [facility] Work Phone: Medications Completed/Discontinued Medications Medication Drug Class(es) Dates Sig (Normalized) Sig (Original) AMLODIPINE BESY-BENAZEPRIL HCL (6 sources) Dihydropyridine Calcium Channel Kenji, Angiotensin Converting Enzyme Inhibitor Start: 12-12-2016 take 1 tablet by mouth once daily LOTREL 10-40 MG CAPS One tablet by mouth daily AMLODIPINE BESY-BENAZEPRIL HCL [id number] Faye Monsalve RN Problems Active Problems Problem [...] (Body Mass Index) 34.12 kg/m2 Kaylene Fernandes [employer] [facility] Work Phone: 03-22-2017 09:32-0400 BP Diastolic 88 mm[Hg] Kaylene Chong [employer] [facility] Work Phone: 03-22-2017 09:32-0400 BP Systolic 146 mm[Hg] Kaylene Chong [employer] [facility] Work Phone: 03-22-2017 09:32-0400 Height 167.64 cm Kaylene Chong [employer] [facility] Work Phone: 03-22-2017 09:32-0400 Pulse (Heart Rate) 72 /min Kaylene Chong [employer] [facility] Work Phone: 03-22-2017 09:32-0400 Respiratory Rate 20 /min Kaylene Chong [facility] Work Phone: 03-22-2017 09:32-0400 Weight 95.89 kg Kaylene Chong [facility] Work Phone: 12-13-2016 14:06-0400 Heart rate 71 /min Natalee Hernandez [facility] Work Phone: 12-13-2016 13:33-0400 BMI (Body Mass Index) 34.21 kg/m2 Yasmin Roland RN [facility] Work Phone: 12-13-2016 13:33-0400 BP Diastolic 78 mm[Hg] Yasmin Roland RN [facility] Work Phone: 12-13-2016 13:33-0400 BP Systolic 138 mm[Hg] Yasmin Roland RN [facility] Work Phone: 12-13-2016 13:33-0400 Height 167.64 cm Yasmin Roland RN [facility] Work Phone: 12-13-2016 13:33-0400 Pulse [...] Phone: Start: 03-22-2017 End: 03-22-2017 PFM PFM [employer] Work Phone: Start: 12-13-2016 End: 02-07-2017 *BMP *BMP [employer] Work Phone: Start: 12-13-2016 End: 02-07-2017 CBC W Auto Differential panel - Blood *CBC without Diff [employer] Work Phone: Start: 12-13-2016 End: 12-13-2016 Electrocardiogram, complete EKG (In office) [employer] Work Phone: Start: 12-13-2016 End: 12-13-2016 Follow Up Appt 3 months Follow Up Appt 3 months [facility] Work Phone: Start: 12-13-2016 End: 12-13-2016 MMM MMM [employer] Work Phone: Start: 12-13-2016 End: 12-13-2016 Remote 30 day ecg rev/report 30 Day Holter Monitor [employer] Work Phone: Start: 12-13-2016 End: 12-13-2016 Tilt table evaluation Tilt Table Test [employer] [facility] Work Phone: Summary Purpose Family History No Family History Records FoundNo Family History Records Found Advance Directives No Advanced Directives Records FoundNo Advanced Directives Records Found Hospital Course Note HNO ID: [id number] Author: Erica Greco MD Service: Hospital Medicine [...] AUTHOR AUTHOR'S ORGANIZ ATION 02/25/2020 [facility] FOR RECORDS PERTAINING TO PATIENTS WHO [...] BE BASED ON THE PRIMARY CLINICAL RECORDS. [facility] [employer] [facility]. provides no warranty or guarantee of the accuracy or completeness of information in this document.
--- NOTE | 2023-11-12 05:55 | EKG12_ITS ---
Test Reason : CP ADMISSION Blood Pressure : / mmHG Vent. Rate : 084 BPM Atrial Rate : 084 BPM P-R Int : 208 ms QRS Dur : 098 ms QT Int : 426 ms P-R-T Axes : 026 -42 010 degrees QTc Int : 503 ms Normal sinus rhythm Left axis deviation Cannot rule out Inferior infarct , age undetermined Anterolateral infarct , age undetermined Prolonged QT Abnormal ECG When compared with ECG of 11-NOV-2023 19:42, MANUAL COMPARISON REQUIRED, DATA IS UNCONFIRMED Confirmed by Miguel Ashton ([id number]), editorial cartoonist CRISTI ROOT ([id number]) on 11/12/2023 1:51:46 PM Referred By: Luceor Confirmed By:Miguel Ashton
--- OUTSIDE RECORDS SUMMARY | 2023-11-12 06:16 | XMS RPT_ITS | CCD ---
Author Name Unknown Address [address] [place] [address] Organization [facility] Care Team Providers Care Court Magistrate Name Role Phone Anabelle Mead Unavailable Asuncion CUNNINGHAM, Yasmin Ambrocio Unavailable Unavailable Gricel CUNNINGHAM, Faye Curry Unavailable [phone] Asuncion CUNNING[place]AM, Yasmin Ambrocio Unavailable Unavailable DeFinis, Harumi Y Unavailable Unavailable Chong, Kaylene Unavailable Unavailable Allergies Allergy Classification Reported Allergen(s) Allergy Type Date of Onset Reaction(s) Facility (6 sources) aspirin drug allergy 12-12-2016 Mouth Swelling [facility] Work Phone: (6 sources) morphine drug allergy 12-12-2016 GI Problems [facility] [employer] [facility] Work Phone: Medications Completed/Discontinued Medications Medication Drug Class(es) Dates Sig (Normalized) Sig (Original) AMLODIPINE BESY-BENAZEPRIL HCL (6 sources) Dihydropyridine Calcium Channel Kenji, Angiotensin Converting Enzyme Inhibitor Start: 12-12-2016 take 1 tablet by mouth once daily LOTREL 10-40 MG CAPS One tablet by mouth daily AMLODIPINE BESY-BENAZEPRIL HCL [id number] Faye Monsalve RN Problems Active Problems Problem [...] (Body Mass Index) 34.12 kg/m2 Kaylene Fernandes [employer] [facility] Work Phone: 03-22-2017 09:32-0400 BP Diastolic 88 mm[Hg] Kaylene Chong [employer] [facility] Work Phone: 03-22-2017 09:32-0400 BP Systolic 146 mm[Hg] Kaylene Chong [employer] Work Phone: 03-22-2017 09:32-0400 Height 167.64 cm Kaylene Chong [employer] [facility] Work Phone: 03-22-2017 09:32-0400 Pulse (Heart Rate) 72 /min Kaylene Chong [employer] [facility] Work Phone: 03-22-2017 09:32-0400 Respiratory Rate 20 /min Kaylene Chong [facility] Work Phone: 03-22-2017 09:32-0400 Weight 95.89 kg Kaylene Chong [facility] Work Phone: 12-13-2016 14:06-0400 Heart rate 71 /min Natalee Hernandez [facility] Work Phone: 12-13-2016 13:33-0400 BMI (Body Mass Index) 34.21 kg/m2 Yasmin Roland RN [facility] Work Phone: 12-13-2016 13:33-0400 BP Diastolic 78 mm[Hg] Yasmin Roalnd RN [facility] Work Phone: 12-13-2016 13:33-0400 BP Systolic 138 mm[Hg] Yasmin Roland RN [facility] Work Phone: 12-13-2016 13:33-0400 Height 167.64 cm Yasmin Roland RN [facility] Work Phone: 12-13-2016 13:33-0400 Pulse [...] Phone: Start: 03-22-2017 End: 03-22-2017 PFM PFM [facility] Work Phone: Start: 12-13-2016 End: 02-07-2017 *BMP *BMP [facility] Work Phone: Start: 12-13-2016 End: 02-07-2017 CBC W Auto Differential panel - Blood *CBC without Diff [facility] Work Phone: Start: 12-13-2016 End: 12-13-2016 Electrocardiogram, complete EKG (In office) [facility] Work Phone: Start: 12-13-2016 End: 12-13-2016 Follow Up Appt 3 months Follow Up Appt 3 months [employer] Work Phone: Start: 12-13-2016 End: 12-13-2016 MMM MMM [facility] Work Phone: Start: 12-13-2016 End: 12-13-2016 Remote 30 day ecg rev/report 30 Day Holter Monitor [facility] Work Phone: Start: 12-13-2016 End: 12-13-2016 Tilt table evaluation Tilt Table Test [employer] [facility] Work Phone: Summary Purpose Family History No Family History Records FoundNo Family History Records Found Advance Directives No Advanced Directives Records FoundNo Advanced Directives Records Found Hospital Course Note HNO ID: [id number] Author: Erica Greco MD Service: Hospital Medicine [...] DATE CREATED AUTHOR AUTHOR'S ORGANIZ ATION 02/25/2020 [facility] FOR RECORDS PERTAINING TO PATIENTS WHO [...] BE BASED ON THE PRIMARY CLINICAL RECORDS. [facility] [employer] [facility]. provides no warranty or guarantee of the accuracy or completeness of information in this document.
--- OUTSIDE RECORDS SUMMARY | 2023-11-12 06:18 | XMS RPT_ITS | CCD ---
Author Name Unknown Address [address] [place] [address] Organization [facility] Care Team Providers Care Director Report Name Role Phone Anabelle Mead Unavailable Asuncion CUNNINGHAM, Yasmin Ambrocio Unavailable Unavailable Gricel CUNNINGHAM, Faye Curry Unavailable Asuncion CUNN[place]AM, Yasmin Ambrocio Unavailable Unavailable DeFinis, Harumi Y Unavailable Unavailable Chong, Kaylene Unavailable Unavailable Allergies Allergy Classification Reported Allergen(s) Allergy Type Date of Onset Reaction(s) Facility (6 sources) aspirin drug allergy 12-12-2016 Mouth Swelling [facility] Work Phone: (6 sources) morphine drug allergy 12-12-2016 GI Problems [facility] [employer] [facility] Work Phone: Medications Completed/Discontinued Medications Medication Drug Class(es) Dates Sig (Normalized) Sig (Original) AMLODIPINE BESY-BENAZEPRIL HCL (6 sources) Dihydropyridine Calcium Channel Kenji, Angiotensin Converting Enzyme Inhibitor Start: 12-12-2016 take 1 tablet by mouth once daily LOTREL 10-40 MG CAPS One tablet by mouth daily AMLODIPINE BESY-BENAZEPRIL HCL [id number] Faye Monsalve RN Problems Active Problems Problem [...] (Body Mass Index) 34.12 kg/m2 Kaylene Fernandes [employer] [facility] Work Phone: 03-22-2017 09:32-0400 BP Diastolic 88 mm[Hg] Kaylene Chong [employer] Work Phone: 03-22-2017 09:32-0400 BP Systolic 146 mm[Hg] Kaylene Chong [employer] Work Phone: 03-22-2017 09:32-0400 Height 167.64 cm Kaylene Chong [employer] Work Phone: 03-22-2017 09:32-0400 Pulse (Heart Rate) 72 /min Kaylene Chong [employer] Work Phone: 03-22-2017 09:32-0400 Respiratory Rate 20 /min Kaylene Chong [facility] Work Phone: 03-22-2017 09:32-0400 Weight 95.89 kg Kaylene Chong [facility] Work Phone: 12-13-2016 14:06-0400 Heart rate 71 /min Natalee Hernandez [facility] Work Phone: 12-13-2016 13:33-0400 BMI (Body Mass Index) 34.21 kg/m2 Yasmin Roland RN [facility] Work Phone: 12-13-2016 13:33-0400 BP Diastolic 78 mm[Hg] Yasmin Roland RN [facility] Work Phone: 12-13-2016 13:33-0400 BP Systolic 138 mm[Hg] Yasmin Roland RN [facility] Work Phone: 12-13-2016 13:33-0400 Height 167.64 cm Yasmin Roland RN [facility] Work Phone: 12-13-2016 13:33-0400 Pulse [...] Phone: Start: 03-22-2017 End: 03-22-2017 PFM PFM [employer] Work Phone: Start: 12-13-2016 End: 02-07-2017 *BMP *BMP [employer] Work Phone: Start: 12-13-2016 End: 02-07-2017 CBC W Auto Differential panel - Blood *CBC without Diff [employer] Work Phone: Start: 12-13-2016 End: 12-13-2016 Electrocardiogram, complete EKG (In office) [employer] Work Phone: Start: 12-13-2016 End: 12-13-2016 Follow Up Appt 3 months Follow Up Appt 3 months [employer] Work Phone: Start: 12-13-2016 End: 12-13-2016 MMM MMM [employer] Work Phone: Start: 12-13-2016 End: 12-13-2016 Remote 30 day ecg rev/report 30 Day Holter Monitor [employer] Work Phone: Start: 12-13-2016 End: 12-13-2016 Tilt table evaluation Tilt Table Test [employer] Work Phone: Summary Purpose Family History No Family History Records FoundNo Family History Records Found Advance Directives No Advanced Directives Records FoundNo Advanced Directives Records Found Hospital Course Note HNO ID: [id number] Author: Erica Greco MD Service: Hospital Medicine [...] DATE CREATED AUTHOR AUTHOR'S ORGANIZ ATION 02/25/2020 [facility] FOR RECORDS PERTAINING TO PATIENTS WHO [...] ON THE PRIMARY CLINICAL RECORDS. [facility] [employer] [facility]. provides no warranty or guarantee of the accuracy or completeness of information in this document.
[2023-11-12] MEDS: hydrALAZINE 50 MG Tablet 100 MG PO ×3 (06:23→21:35)
[2023-11-12] MEDS: Clopidogrel Bisulfate 75 MG Tablet PO (06:24)
[2023-11-12] MEDS: Albuterol 2.5 MG/3 ML VIAL.NEB. INHALATION ×2 (06:42→19:14)
[2023-11-12] MEDS: Budesonide Respules 0.5 MG/2 ML AMPUL.NEB. INHALATION ×2 (06:42→19:14)
--- NOTE | 2023-11-12 07:54 | CON.PCM.CA_ITS ---
Assessment & Plan Assessment/Plan (1) NSTEMI, initial episode of care: PLAN: The patient's enzymes troponin high-sensitivity is 143. His EKG is not definitive for an acute coronary ischemic event. It is uncertain what happened at his home when he had his near syncopal spell with the sudden lower thoracic chest symptoms radiating up and down both arms causing his arms to be extremely heavy and him to nearly pass out. He was seated in a chair and did not fall over or slump over. The patient has known coronary disease that is diffuse moderate in the LAD and circumflex and an occluded distal right coronary artery. He had an abnormal stress test in October 2021 that led to the catheterization described. Given the patient's significant comorbidities and overall general medical condition I feel that we should treat this conservatively with medical therapy. He is allergic to aspirin with oral pharyngeal swelling. And he is tolerating Eliquis for his atrial fibrillation. I would recommend we add Plavix and Ranexa to his medical regimen. The patient should be continued on his beta-andrey and Imdur. I do not feel that a pharmacologic nuclear stress test would be of benefit in this given situation as we already know was going to be abnormal from his previous stress test in October 2021. (2) History of coronary artery disease: PLAN: Please see the cath report described above in the HPI. The patient has diffuse moderate disease in the left system and an occluded right coronary artery. My impression is that should be treated medically I do not feel that he is a candidate for aggressive invasive evaluation and/or therapy. If we cannot control him with medical therapy will need to have a discussion with the family concerning long-term management and how aggressive they want to be. (3) Chronic anticoagulation: PLAN: The patient should be continued on long-term anticoagulation with Eliquis due to his paroxysmal atrial fibrillation. He remains in sinus rhythm while he is hospitalized here. (4) History of left heart catheterization (LHC): PLAN: Left heart catheterization as described above. (5) Atrial fibrillation with RVR: PLAN: The patient has a history of paroxysmal atrial fibrillation with rapid v entricular response he is currently medicated with amiodarone and Coreg. (6) Essential hypertension: PLAN: The patient's blood pressure is elevated he is on significant medical regiment and reports that this is consistent with whitecoat syndrome in the past. I recommend he continue his same medical regiment as documented. PLAN: Plan 1. Cancel pharmacologic stress test. The risk outweighs the benefit to be gained from this information given the patient's comorbid status. 2. Intensify anti-ischemic medical regimen by adding Ranexa and Plavix. Monitor him closely for bleeding and if any nuisance bleeding occurs the Plavix should be discontinued. Continue the Eliquis. 3. We will reevaluate the situation in 24 hours and if he continues to have symptoms would consider revisiting invasive evaluation. 4. Consider palliative care consult. I will defer this to the primary service. HPI Consult Data Date of Consult: 11/12/23 HPI Narrative Reason for Consultation: Chest Symptoms with positive Troponin HPI Narrative: MEGAN HOLLOWAY, is a 78 M who presents with a history of chest discomfort described as sudden onset burning radiating from his lower thorax up into his chest. He reports that this lasted off and on for couple hours and occurred after he was eating and sitting in the chair. He does not remember if this is like what he had prior to his stress test and catheterization in spring 2021. His troponins were positive at 146 after the first 2 were 23 and 53. His EKG shows sinus rhythm and cannot rule out an old inferior and old anterior OR. The patient has a history of paroxysmal atrial fibrillation and aortic stenosis by echo. He had a pharmacologic stress test October 2021 which showed inferior and lateral ischemic changes. A subsequent catheterization revealed 50 to 60% LAD disease the circumflex OM branch had a 60 to 70% stenosis in the right coronary artery was totally occluded and fills via collateral flow distally. The patient was treated medically due to the diffuse nature of the disease process, the chronic total obstruction of his right, and the fact he has a oskar cayetano aspirin allergy with significant mouth swelling. The patient also reports that as this started that he thought he was going to pass out both of his arms got very heavy and weak and then that passed. He is not certain what his atrial fibrillation feels like but he does not think that he was in atrial fibs at this time. His EKGs here in the hospital have shown sinus rhythm. The patient does report that he chronically hurts all over. The patient now reports that he has some residual soreness in his chest. He was examined down in the stress lab prior to starting a pharmacologic stress test. The patient is tolerating his Eliquis denies any bleeding issues. He does not know if he is on Plavix or not and his home environment. But it is listed on his medication sheet and is should be continued as long as he is having no bleeding issues. I do not feel that a pharmacologic stress test would be of much benefit as we know it is going to be abnormal from the old one. And given his overall comorbidities I feel that the appropriate treatment would be do everything possible to treat this medically to control his symptoms. As to try and do percutaneous revascularization are coronary bypass graft surgery in this given situation would be fraught with complications. [facility] Medical History Abnormal stress test Acute bronchitis with bronchospasm Acute respiratory insufficiency Anticoagulant long-term use Anxiety Aortic stenosis Arthralgia of foot, left Arthralgia of right knee Arthritis Asthma Asymptomatic hypertensive urgency Atherosclerotic heart disease of [place] coronary artery without angina pectoris Atrial fibrillation with RVR Back pain BiPAP (biphasic positive airway pressure) dependence Bronchitis Cancer of prostate with intermediate recurrence risk (stage T2b-c or [place] 7 or PSA 10-20) Cardiology follow-up encounter Closed head injury Colitis Concussion COVID-19 virus infection CPAP (continuous positive airway pressure) dependence Dementia Depression Diverticula of colon DM2 (diabetes mellitus, type 2) Dyspnea on exertion Dysuria Effusion, left knee Effusion, right knee Essential hypertension Excessive bleeding Fatigue Former smoker Gastric reflux Gout flare Heart failure High cholesterol History of atrial fibrillation History of echocardiogram History of edema History of renal disease History of steroid therapy History of stress test HTN (hypertension) Hyperlipidemia Hypertensive urgency Hypokalemia Inability to walk Inflammatory bowel disease Injury of head and neck Intractable pain Kidney stones Loss of consciousness LVH (left ventricular hypertrophy) Nonrheumatic aortic (valve) stenosis NSVT (nonsustained ventricular tachycardia) SUPA (obstructive sleep apnea) Paroxysmal atrial fibrillation Pneumonia Pneumonia Prostate cancer Prostate cancer Pulmonary hypertension Renal colic on left side Rheumatoid aortitis Rheumatoid arthritis Rhinovirus Rib pain Sepsis Severe acute respiratory syndrome coronavirus 2 (SARS-CoV-2) infection ruled out Severe sepsis Sinus drainage Sleep apnea SOB (shortness of breath) Syncope and collapse Ureterolithiasis Wears dentures Wears glasses Wears hearing aid White coat syndrome without diagnosis of hypertension Home Medications glimepiride 2 mg tablet 2 mg PO QHS diabetes 01/22/18 [History Last Taken 09/19/23] duloxetine 60 mg capsule,delayed release (Cymbalta) 60 mg PO DAILY depression 06/02/19 [History Last Taken 09/20/23] buspirone 7.5 mg tablet 7.5 mg PO BID depression/anxiety 04/12/21 [History Last Taken 09/20/23] latanoprost 0.005 % eye drops 1 drp LEFT EYE QPM eye health 12/22/21 [History Last Taken 03/20/23] gabapentin 600 mg tablet 300 mg PO BID neuropathy 01/26/22 [History Last Taken 11/11/23 17:00 300 mg] carvedilol 25 mg tablet 25 mg PO BID HEART 10/02/22 [History Last Taken 09/20/23] losartan 100 mg tablet 100 mg PO DAILY BLOOD PRESSURE 10/02/22 [History Last Taken 09/20/23] oxybutynin chloride 10 mg tablet,extended release 24 hr 10 mg PO DAILY bladder 10/04/22 [History Last Taken 09/20/23] timolol maleate 0.5 % eye drops 1 drp LEFT EYE DAILY EYE HEALTH 10/04/22 [History Last Taken 03/20/23] apixaban 5 mg tablet 5 mg PO BID afib #180 tabs 12/03/22 [Rx Last Taken 09/20/23] rosuvastatin 20 mg tablet 10 mg PO DAILY cholesterol 03/21/23 [History Last Taken 09/20/23] fluticasone furoate 200 mcg-vilanterol 25 mcg/dose inhalation powder (Breo Ellipta) 1 inh inhalation QDAY #60 ea 04/04/23 [Rx Last Taken 09/20/23] infliximab 100 mg intravenous solution (Remicade) 100 mg IV .Q7W crohns 05/24/23 [History Last Taken 09/04/23] hydralazine 100 mg tablet 100 mg PO TID BLOOD PRESSURE #270 tabs 06/14/23 [Rx Last Taken 09/20/23] isosorbide mononitrate 60 mg tablet,extended release 24 hr 60 mg PO BID BLOOD PRESSURE #90 tabs 07/25/23 [Rx Last Taken 09/20/23] montelukast 10 mg tablet 10 mg PO QPM #30 tabs 07/25/23 [Rx Last Taken 09/20/23] amiodarone 200 mg tablet See Rx Instructions .Route .COMPLEX #45 TABLETS 08/28/23 [Rx Last Taken 09/20/23] potassium chloride 10 mEq tablet,extended release(part/cryst) 10 meq PO DAILY supplement 09/04/23 [History Last Taken 09/20/23] guaifenesin 1,200 mg tablet, extended release 12 hr (Mucus Relief ER) 1,200 mg PO BID #20 tabs 09/05/23 [Rx Last Taken 09/20/23] amlodipine 10 mg tablet 5 mg PO DAILY 09/20/23 [History Last Taken 09/20/23] quetiapine 25 mg tablet 25 mg PO DAILY 09/20/23 [History Last Taken 09/20/23] levofloxacin 750 mg tablet 750 mg PO Q48H #4 tabs 09/24/23 [Rx Last Taken Unknown] doxazosin 4 mg tablet See Rx Instructions .Route .COMPLEX #60 TABLETS 10/14/23 [Rx Last Taken Unknown] phenazopyridine 100 mg tablet 100 mg PO TID PRN pain #30 tabs 11/08/23 [Rx Last Taken Unknown] quetiapine 50 mg tablet 50 mg PO 11/11/23 [History Last Taken Unknown] Allergy/AdvReac Type Severity Reaction Status Date / Time aspirin Allergy Severe Mouth Verified 10/16/23 08:09 swelling donepezil [From Aricept] AdvReac Severe Swelling Verified 10/16/23 08:09 minoxidil AdvReac Severe swelling Verified 10/16/23 08:09 morphine AdvReac Severe UNABLE TO Verified 10/16/23 08:09 URINATE Family History Mother Heart disease Diabetes Father Heart disease Lung disease Brother Heart disease Lung disease Cancer prostate, pancreatic Sister Diabetes Cancer uterine Surgical History Cervical vertebral fusion History of back surgery History of bilateral knee replacement History of cardiac catheterization History of left heart catheterization (LHC) (~12/22/21) History of prostate biopsy History of removal of cyst Hx of colectomy Hx of cystoscopy Hx of surgical procedure Social History Smoking Status: Former smoker how long ago did patient quit smokin, 2ppd second hand exposure: Yes alcohol intake: never substance use type: does not use caffeine: Yes Type: coffee Number of servings: 2 ROS Constitutional Constitutional: Reports as per HPI Eyes Eyes: Reports systems reviewed and no addt'l complaints, except as documented ENT HEENT: Reports systems reviewed and no addt'l complaints, except as documented Cardiovascular Cardiovascular: Reports as per HPI Respiratory/Chest Respiratory/Chest: Reports as per HPI Gastrointestinal Gastrointestinal: Reports as per HPI Genitourinary Genitourinary: Reports systems reviewed and no addt'l complaints, except as documented Musculoskeletal Musculoskeletal: Reports as per HPI Integumentary Integumentary: Reports systems reviewed and no addt'l complaints, except as documented Neurologic Neurologic: Reports as per HPI and other Details: Very hard of hearing. Psychiatric Psychiatric: Reports systems reviewed and no addt'l complaints, except as documented Endocrine Endocrinology: Reports systems reviewed and no addt'l complaints, except as documented Hematologic/Lymphatic Hematologic/Lymphatic: Reports systems reviewed and no addt'l complaints, except as documented Allergic/Immunologic Allergic/Immunologic: Reports as per HPI Physical Exam Const oriented x3 HEENT normocephalic Eyes EOMs intact bilaterally Neck no JVD and no carotid bruits Chest inspection of chest normal Resp normal respiratory effort Auscultation: crackles bilateral lower Cardio regular rate, regular rhythm, S1 normal heart sound, S2 normal heart sound, no rub and no gallops Heart Sounds: murmur systolic II/ soft right sternal border Bruits: Negative for carotid bruit GI soft to palpation and non-tender Extremity General Extremity: edema bilateral lower extremity Details: trace Skin no rashes or lesions noted Neuro Neuro Narrative: Hard of hearing Psych mental status grossly normal Risk Stratification Risk Stratification Applicable: Yes Age >/= 65: Yes >/= 3 CAD Risk Factors (HTN, HLD, DM, family hx of CAD, or current smoker): Yes Aspirin Use in the Past 7 Days: No Severe Angina (>/= episodes in 24 hours): Yes EKG ST Changes >/= 0.5mm: No Positive Cardiac Marker: Yes LEO Risk Stratification Score: 4 LEO % Risk: 20% Risk Charges/Coding Visit Charges Inpatient E&M: 87208 Init Hosp L3 Objective Data Vital Signs: Vital Signs Temp Pulse Resp BP Pulse Ox O2 Del Method O2 Flow Rate 98.1 F 68 16 162/83 H 94 Nasal Cannula 2 11/12/23 05:08 11/12/23 06:23 11/12/23 05:08 11/12/23 06:23 11/12/23 05:08 11/12/23 05:11 11/12/23 05:11 Oxygen Flow Rate (L/min) 2 Oxygen Delivery Method Nasal Cannula Weight: 219 lb 5.759 oz Body Mass Index (BMI) 34.3 Intake & Output: Intake and Output for Last 24 Hours 11/10/23 11/11/23 11/12/23 23:59 23:59 23:59 Intake Total 550 / 550 100 / 100 Balance 550 / 550 100 / 100 Lab / Micro Data 11/11/23 19:54 11/11/23 19:54 Labs: Laboratory Results - last 24 hr 11/11/23 19:54: WBC 7.0, RBC 4.09 L, Hgb 12.5 L, Hct 38.6 L, MCV 94.4 H, MCH 30.6, MCHC 32.4, RDW Std Deviation 53.4 H, RDW Coeff of Azeem 15.3 H, Plt Count 155, MPV 11.2, Immature Gran % (Auto) 0.300, Neut % (Auto) 52.3, Lymph % (Auto) 32.6, [place] % (Auto) 11.6 H, Eos % (Auto) 2.9, Baso % (Auto) 0.3, Absolute Neuts (auto) 3.7, Absolute Lymphs (auto) 2.28, Nucleated RBC % 0, Sodium 144, Potassium 3.4 L, Chloride 111 H, Carbon Dioxide 28.0, Anion Gap 5, BUN 16, Creatinine 1.43 H, Estim Creat Clear Calc 47.81, Est GFR (MDRD) Af Amer 61, Est GFR (MDRD) Non-Af 51 L, BUN/Creatinine Ratio 11.2, Glucose 221 H, Calcium 9.1, Magnesium 1.9, Troponin I High Sens 23 11/11/23 22:40: Troponin I High Sens 53, Triglycerides 255 H, Cholesterol 148, LDL Cholesterol 64, VLDL Cholesterol 51 H, HDL Cholesterol 33 L 11/12/23 02:20: Troponin I High Sens 146 H* Micro: Microbiology 11/11/23 20:20 Mucosa - Nose SARS-CoV-2, Influenza & RSV (PCR) - Final Rhythm Strip Rhythm Strip: Sinus Rhythm Rate: 65 Cardiology Labs/Tests 11/11/23 19:54: WBC 7.0, RBC 4.09 L, Hgb 12.5 L, Hct 38.6 L, MCV 94.4 H, MCH 30.6, MCHC 32.4, Plt Count 155, MPV 11.2, Immature Gran % (Auto) 0.300, Neut % (Auto) 52.3, Lymph % (Auto) 32.6, [place] % (Auto) 11.6 H, Eos % (Auto) 2.9, Baso % (Auto) 0.3, Absolute Neuts (auto) 3.7, Nucleated RBC % 0, Sodium 144, Potassium 3.4 L, Chloride 111 H, Carbon Dioxide 28.0, Anion Gap 5, BUN 16, Creatinine 1.43 H, Est GFR (MDRD) Af Amer 61, Est GFR (MDRD) Non-Af 51 L, BUN/Creatinine Ratio 11.2, Glucose 221 H, Calcium 9.1, Magnesium 1.9 11/11/23 22:40: Triglycerides 255 H, Cholesterol 148, LDL Cholesterol 64, VLDL Cholesterol 51 H, HDL Cholesterol 33 L Rhythm: EKG: ECHO: Stress Test: Cardiac Cath: PCI: CT Surgery: Holter monitor: EPS: PPM: CXR: Chest CT Scan: Radiography Diagnostic Testing: Radiology Impression Chest X-Ray 11/11/23 20:35 IMPRESSION: No radiographic evidence of acute cardiopulmonary disease. Electronically Signed: Graham Alfaro MD at 21:01 EST ,
[2023-11-12 08:58] LABS: Hemoglobin 11.8 g/dL (13.0-16.5); Mean Corp Hgb Conc 32.8 g/dL (32-36); Mean Corpuscular Hgb 31.1 pg (27.0-32.0); Mean Corpuscular Volume 94.7 fL (80-94); Mean Platelet Vol. 11.4 fl (6.2-12.0); Platelet Count 166 K/mm3 (150-450); RBC Distribution Width CV 15.7 % (11.6-14.6); RBC Distribution Width SD 54.9 fl (35.1-43.9); White Blood Count 5.8 K/mm3 (4.4-11.0)
[2023-11-12 09:24] LABS: Anion Gap 3 (5-15); BUN 16 mg/dL (7-18); BUN/Creat Ratio 12.6 RATIO (10-20); Calcium,Total 9.4 mg/dL (8.5-10.1); Chloride 113 mmol/L (98-107); Creatinine, Serum 1.27 mg/dL (0.70-1.30); EST Glomerular Filtration Rate 58 mL/min (>60); Est Glom Filt Rate - Afr Amer 70 mL/min (>60); Estimated Creatinine Clearance 53.01 ml/min; Glucose 124 mg/dL (74-106); Potassium 3.8 mmol/L (3.5-5.1); Sodium Level 145 mmol/L (136-145)
[2023-11-12] MEDS: amLODIPine 5 MG Tablet PO (09:34)
[2023-11-12] MEDS: Ranolazine 500 MG Tablet PO ×2 (09:34→21:36)
[2023-11-12] MEDS: busPIRone 5 MG Tablet 7.5 MG PO ×2 (09:35→21:35)
[2023-11-12] MEDS: DULoxetine Hcl 60 MG Capsule PO (09:35)
[2023-11-12] MEDS: Doxazosin 4 MG Tablet PO ×2 (09:35→21:37)
[2023-11-12] MEDS: Potassium Chloride Oral Tablet 10 MEQ PO (09:35)
[2023-11-12] MEDS: Isosorbide Mononitrate 60 MG Tablet PO ×2 (09:36→21:37)
[2023-11-12] MEDS: guaiFENesin 1,200 MG Tablet 1200 MG PO ×2 (09:36→21:35)
[2023-11-12] MEDS: Tolterodine Tartrate 2 MG CAP.SA PO (09:36)
[2023-11-12] MEDS: Losartan Potassium 100 MG Tablet PO (09:36)
[2023-11-12] MEDS: Amiodarone 200 MG Tablet 100 MG PO (09:36)
[2023-11-12] MEDS: Timolol 0.5% 5ML OPTH.BTL 1 DRP LEFT EYE (09:37)
[2023-11-12] MEDS: QUEtiapine 25 MG Tablet PO (09:37)
[2023-11-12] MEDS: Gabapentin 300 MG Capsule PO ×2 (09:46→21:34)
--- NOTE | 2023-11-12 12:17 | PN.HOSP_ITS ---
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 Patient was seen by cardiology this morning prior to my interview. Cardiology noted that patient had significant comorbidities and it was unclear if his current presentation was secondary to cardiac chest pain, recommended medical therapy with no need for further workup with stress testing or heart catheterization. When I saw the patient, he was standing at the edge of the bed in no acute distress. Denied any chest pain this morning, states that he feels back to his baseline. He did reiterate to me that chest pain yesterday evening felt like he was dying , but he is happy that he has re turned to his baseline today. He denies any other acute pain or discomfort. No other acute concerns at this time. Objective Data Objective Data Vital Signs: Vital Signs Temp Pulse Resp BP Pulse Ox O2 Del Method O2 Flow Rate 97.4 F L 81 18 183/101 H 92 Room Air 3 11/12/23 09:45 11/12/23 09:45 11/12/23 09:45 11/12/23 09:45 11/12/23 09:45 11/12/23 09:45 11/12/23 08:11 Oxygen Flow Rate (L/min) 3 Oxygen Delivery Method Room Air Weight: 99.5 kg Body Mass Index (BMI) 34.3 Intake & Output: Intake and Output for Last 24 Hours 11/10/23 11/11/23 11/12/23 23:59 23:59 23:59 Intake Total 550 / 550 100 / 100 Balance 550 / 550 100 / 100 Lab / Micro Data 11/12/23 08:36 11/12/23 08:36 Labs: Laboratory Results - last 24 hr 11/11/23 19:54: WBC 7.0, RBC 4.09 L, Hgb 12.5 L, Hct 38.6 L, MCV 94.4 H, MCH 30 .6, MCHC 32.4, RDW Std Deviation 53.4 H, RDW Coeff of Azeem 15.3 H, Plt Count 155, MPV 11.2, Immature Gran % (Auto) 0.300, Neut % (Auto) 52.3, Lymph % (Auto) 32.6, [place] % (Auto) 11.6 H, Eos % (Auto) 2.9, Baso % (Auto) 0.3, Absolute Neuts (auto) 3.7, Absolute Lymphs (auto) 2.28, Nucleated RBC % 0, Sodium 144, Potassium 3.4 L , Chloride 111 H, Carbon Dioxide 28.0, Anion Gap 5, BUN 16, Creatinine 1.43 H, Estim Creat Clear Calc 47.81, Est GFR (MDRD) Af Amer 61, Est GFR (MDRD) Non-Af 51 L, BUN/Creatinine Ratio 11.2, Glucose 221 H, Calcium 9.1, Magnesium 1.9, Troponin I High Sens 23 11/11/23 22:40: Troponin I High Sens 53, Triglycerides 255 H, Cholesterol 148, LDL Cholesterol 64, VLDL Cholesterol 51 H, HDL Cholesterol 33 L 11/12/23 02:20: Troponin I High Sens 146 H* 11/12/23 08:36: WBC 5.8, RBC 3.80 L, Hgb 11.8 L, Hct 36.0 L, MCV 94.7 H, MCH 31.1, MCHC 32.8, RDW Std Deviation 54.9 H, RDW Coeff of Azeem 15.7 H, Plt Count 166, MPV 11.4, Sodium 145, Potassium 3.8, Chloride 113 H, Carbon Dioxide 29.0, Anion Gap 3 L, BUN 16, Creatinine 1.27, Estim Creat Clear Calc 53.01, Est GFR (MDRD) Af Amer 70, Est GFR (MDRD) Non-Af 58 L, BUN/Creatinine Ratio 12.6, Glucose 124 H, Calcium 9.4 Micro: Microbiology 11/11/23 20:20 Mucosa - Nose SARS-CoV-2, Influenza & RSV (PCR) - Final Radiography Diagnostic Testing: Radiology Impression Chest X-Ray 11/11/23 20:35 IMPRESSION: No radiographic evidence of acute cardiopulmonary disease. Electronically Signed: Graham Alfaro MD at 21:01 EST , Rhythm Strip Rhythm Strip: Sinus Rhythm Rate: 65 Physical Exam Const alert, oriented x3 and no apparent distress Constitutional Narrative: Elderly male, obese, chronically ill-appearing, otherwise standing comfortably at edge of bed, conversing normally, no acute distress. General Appearance: cooperative and comfortable HEENT normocephalic, head/scalp atraumatic, hearing grossly normal bilaterally, nasal mucous membranes and turbinates normal and moist oral mucous membranes Eyes PERRL, EOMs intact bilaterally and conjunctivae normal Neck full ROM, no lymphadenopathy and supple Lymph Lymphatic: no lymphadenopathy noted Chest inspection of chest normal Resp normal respiratory effort and no use of accessory muscles Resp Narrative: Breathing comfortably on 2 L nasal cannula. Mildly decreased breath sounds bilaterally throughout, no wheezing or crackles noted. Cardio regular rate, regular rhythm, no murmurs and peripheral pulses 2+ throughout GI normal to inspection, nondistended, normoactive bowel sounds, soft to palpation, non-tender and non-distended Back/Spine normal ROM Extremity normal to inspection, full ROM and no pedal edema Skin no rashes or lesions noted Neuro moves all extremities and no focal motor deficits Speech: speech normal Psych mental status grossly normal Assessment & Plan Assessment/Plan (1) Chest pain: QUALIFIERS: Chest pain type: unspecified Qualified Code(s): R07.9 - Chest pain, unspecified (2) History of coronary artery disease: PLAN: Plan Patient is a 78-year-old male who presented to [facility] ED on 11/11/2023 with chest pain. 1. Chest pain, history of CAD without stent placement Presented with abrupt onset chest pain at rest with nausea/vomiting and mild shortness of breath. EKG nonspecific. Troponins 23 > 53 > 146. Chest x-ray nonacute. Last heart cath in 10/2021 showed diffuse moderate coronary disease in LAD and circumflex and an occluded distal RCA. TTE 11/12 showed EF 55%, diastolic function indeterminate, small pericardial effusion, no significant valve disease. ? Cardiology following. Etiology of event unclear. Given patient's significant comorbidities, plan is to treat conservatively with medical therapy. Continue home Eliquis, added Plavix and Ranexa on 11/12. Continue home beta-andrey and Imdur. Per cardiology, if patient cannot be controlled with medical therapy, will need to have discussion with patient and family regarding long-term management of his chest pain. Recommended keeping patient overnight with reeval uation on 11/13, if remains stable should be okay for discharge home. 2. Mild hypokalemia ? Potassium 3.4 on admit. Replete as needed. Chronic medical conditions: ? Obesity: BMI 34 on admit. Complicates hospital course, care and prognosis. ? Paroxysmal atrial fibrillation, history of NSVT: Continue home Eliquis, Coreg, amiodarone. ? Depression/anxiety: Continue home BuSpar and duloxetine. ? Hypertension: Continue home losartan, nitrate, hydralazine, amlodipine. ? Type 2 diabetes mellitus with neuropathy: Sliding-scale insulin while inpatient. Continue home gabapentin. ? History of prostate cancer s/p radiation, BPH with obstructive symptoms: Continue home doxazosin. ? Glaucoma: Continue home eyedrops. ? Overactive bladder: Continue home oxybutynin. ? SUPA: Continue home BiPAP. ? History of aspirin allergy: Causes mouth/tongue swelling. ? Crohn's disease: Continue infliximab on discharge. ? History of cervical spine fusion ? History of bilateral knee replacements DVT prophylaxis: Eliquis CODE STATUS: DNR CCA, DNI Expected disposition: Home, 1 to 2 days Total clinical time spent by myself addressing the patient's medical issues, reviewing all the data, and collaborating with patient's care team: 35 minutes. Charges/Coding Visit Charges Inpatient E&M: 35171 Subs Hosp L2
[2023-11-12] MEDS: QUEtiapine 25 MG Tablet 50 MG PO (21:34)
[2023-11-12] MEDS: Atorvastatin Calcium 20 MG Tablet PO (21:36)
[2023-11-12] MEDS: Montelukast 10 MG Tablet PO (21:38)
[2023-11-12] MEDS: Latanoprost 0.005% 1 Bottle 1 DRP LEFT EYE (21:38)
[2023-11-12] MEDS: APIXABAN 5 MG TABLET PO (21:49)
--- NOTE | 2023-11-12 23:36 | CPS ---
Pt on sleep lab machine (S10) cpap 15 with 2 L o2 bled in. pt has medium full face mask. F20
[2023-11-13] VITALS (10 sets, daily range): BP systolic 154–193; BP diastolic 84–99; PULSE 77–91; RESP 16–18; TEMP 36.5–36.7; O2SAT 93–97
[2023-11-13] MEDS: hydrALAZINE 20 MG/ML Vial 10 MG IV (04:10)
[2023-11-13] MEDS: 0.9% Saline Lock 10 ML Syringe IV (04:11)
[2023-11-13] MEDS: hydrALAZINE 50 MG Tablet 100 MG PO ×2 (06:17→13:18)
[2023-11-13 07:30] LABS: Anion Gap 4 (5-15); BUN 21 mg/dL (7-18); BUN/Creat Ratio 17.4 RATIO (10-20); Calcium,Total 8.9 mg/dL (8.5-10.1); Chloride 111 mmol/L (98-107); Creatinine, Serum 1.21 mg/dL (0.70-1.30); EST Glomerular Filtration Rate 61 mL/min (>60); Est Glom Filt Rate - Afr Amer 74 mL/min (>60); Estimated Creatinine Clearance 55.64 ml/min; Glucose 139 mg/dL (74-106); Potassium 3.5 mmol/L (3.5-5.1); Sodium Level 146 mmol/L (136-145)
--- NOTE | 2023-11-13 07:35 | PN.CARD_ITS ---
Subjective Subjective Patient was sleeping comfortably with his CPAP in place. He was easily arousable reports no recurrence of any chest symptoms. He is tolerating the medical regiment as best I can ascertain. Echocardiogram done yesterday showed a left ventricular ejection fraction of 55% with no wall motion abnormalities. He had a small insignificant pericardial effusion there is no significant valvular changes other than some mitral annular calcification. There was no mitral regurgitation documented. Objective Data Vital Signs: Vital Signs Temp Pulse Resp BP Pulse Ox O2 Del Method O2 Flow Rate 98.1 F 80 16 154/84 H 96 CPAP 2 11/13/23 04:34 11/13/23 06:17 11/13/23 04:34 11/13/23 06:17 11/13/23 04:34 11/13/23 04:34 11/13/23 04:34 Oxygen Flow Rate (L/min) 2 Oxygen Delivery Method CPAP Weight: 219 lb 5.759 oz Body Mass Index (BMI) 34.3 Intake & Output: Intake and Output for Last 24 Hours 11/11/23 11/12/23 11/13/23 23:59 23:59 23:59 Intake Total 550 / 550 1240 / 1240 100 / 100 Balance 550 / 550 1240 / 1240 100 / 100 Lab / Micro Data Attestation: I reviewed the patient's lab results. 11/12/23 08:36 11/13/23 06:15 Labs: Laboratory Results - last 24 hr 11/12/23 08:36: WBC 5.8, RBC 3.80 L, Hgb 11.8 L, Hct 36.0 L, MCV 94.7 H, MCH 31.1, MCHC 32.8, RDW Std Deviation 54.9 H, RDW Coeff of Azeem 15.7 H, Plt Count 166, MPV 11.4, Sodium 145, Potassium 3.8, Chloride 113 H, Carbon Dioxide 29.0, Anion Gap 3 L, BUN 16, Creatinine 1.27, Estim Creat Clear Calc 53.01, Est GFR (MDRD) Af Amer 70, Est GFR (MDRD) Non-Af 58 L, BUN/Creatinine Ratio 12.6, Glucose 124 H, Calcium 9.4 11/13/23 06:15: Sodium 146 H, Potassium 3.5, Chloride 111 H, Carbon Dioxide 31.0, Anion Gap 4 L, BUN 21 H, Creatinine 1.21, Estim Creat Clear Calc 55.64, Est GFR (MDRD) Af Amer 74, Est GFR (MDRD) Non-Af 61, BUN/Creatinine Ratio 17.4, Glucose 139 H, Calcium 8.9 Rhythm Strip Rhythm Strip: Sinus Rhythm Rate: 65 Cardiology Labs/Tests 11/12/23 08:36: WBC 5.8, RBC 3.80 L, Hgb 11.8 L, Hct 36.0 L, MCV 94.7 H, MCH 31.1, MCHC 32.8, Plt Count 166, MPV 11.4, Sodium 145, Potassium 3.8, Chloride 113 H, Carbon Dioxide 29.0, Anion Gap 3 L, BUN 16, Creatinine 1.27, Est GFR (MDRD) Af Amer 70, Est GFR (MDRD) Non-Af 58 L, BUN/Creatinine Ratio 12.6, Glucose 124 H, Calcium 9.4 11/13/23 06:15: Sodium 146 H, Potassium 3.5, Chloride 111 H, Carbon Dioxide 31.0, Anion Gap 4 L, BUN 21 H, Creatinine 1.21, Est GFR (MDRD) Af Amer 74, Est GFR (MDRD) Non-Af 61, BUN/Creatinine Ratio 17.4, Glucose 139 H, Calcium 8.9 Rhythm: EKG: ECHO: Stress Test: Cardiac Cath: PCI: CT Surgery: Holter monitor: EPS: PPM: CXR: Chest CT Scan: Radiography Diagnostic Testing: Radiology Impression Echocardiogram 11/11/23 22:48 Interpretation Summary The estimated ejection fraction is 55 %. Diastolic function is indeterminate. Small pericardial effusion. Ordering Physician: Laureano Lucero Referring Physician: Jayme Yang Performed By: Terri uBtler, RDCS, RVT Physical Exam Narrative Patient resting comfortably with CPAP in place. Const Constitutional Narrative: Easily arousable HEENT normocephalic Neck no JVD Chest inspection of chest normal Resp normal respiratory effort Auscultation: diminished lung sounds diffuse (Diffuse sounds consistent with his CPAP be in place.) Cardio regular rate, regular rhythm, S1 normal heart sound, S2 normal heart sound and no murmurs GI soft to palpation Extremity no pedal edema Psych mental status grossly normal Assessment & Plan Assessment/Plan (1) NSTEMI, initial episode of care: PLAN: I believe his event of this hospitalization represents a demand type ischemic event. Given the fact that his LV function is normal with no wall motion abnormalities and his troponin only went to 143. We will continue his medication with Ranexa, Imdur, Plavix, and aggressive secondary risk factor treatment. (2) Essential hypertension: PLAN: Blood pressure appears to be adequately controlled on his current medical therapy. (3) Anticoagulant long-term use: PLAN: The patient is on Eliquis long-term for his atrial fibrillation. The patient's dose will need to be decreased to 2.5 mg twice daily next year when he turns 79. (4) Atrial fibrillation with RVR: PLAN: Currently the patient is sinus rhythm he is on amiodarone 100 mg daily and Eliquis long-term. 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 transplanted heart: [place] heart Qualified Code(s): I25.10 - Atherosclerotic heart disease of [place] coronary artery without angina pectoris PLAN: The patient has diffuse moderate LAD and circumflex disease and an occluded right coronary with collateral flow. He should be continued on the same meds as listed above. Secondary risk factors need to be strictly controlled as best as possible. PLAN: Plan From a cardiovascular standpoint the patient can be discharged to home. He should be continued on his CPAP and his medical therapy is currently tolerating. The patient should follow-up in the [facility] office with one of the advanced practitioners in approximately 2 weeks. We will reevaluate his response to the anti-ischemic medical regimen and his blood pressure control at that time. Charges/Coding Visit Charges Inpatient E&M: 47696 Subs Hosp L2
[2023-11-13] MEDS: Budesonide Respules 0.5 MG/2 ML AMPUL.NEB. INHALATION (07:54)
[2023-11-13] MEDS: Albuterol 2.5 MG/3 ML VIAL.NEB. INHALATION (07:54)
--- NOTE | 2023-11-13 08:31 | PCM.DC ---
Discharge Instructions Diet Discharge Diet: Low fat / Low cholesterol and Carb Control Diet Activity Discharge Activity: Return to Normal Activity Dressing / Incision Call your doctor if you observe: Fever of 101 or Higher, Shortness of breath, Dizziness, Fainting spells, Swelling in the ankles, Chest pain and Increased palpitations (irregular heartbeat) Follow Up Care Test Results: Test results from this visit will be discussed in further detail at your follow-up appointment, if applicable. Discharge Plan Admission Admit Date/Time: 11/12/23 15:34 Attending Provider: Boris Bojorquez Primary Care Provider: Jayme Yang Consulting Providers: Dyan Oviedo; Arnaud Watkins; Laurita White; Deng Vieira; Maxine Miguel; Ronaldo Mishra; Mumtaz Elizondo; Rico Parish; Makenna Naqvi; Miguel Ashton; Rachid Escobedo; Myrna Hendrix; Clifford Cordero; Jayme Lino; Channing Maldonado; Domenico Ordaz; Nabil Marie; Teja Jefferson [employer] ALIGN[employer]IST; Dyan Chavez NP; Faye Martinez; Laureano Lucero; Js Lee Discharge Orders/Prescriptions Prescriptions: New clopidogrel 75 mg Tablet 75 mg PO DAILY 30 Days Qty: 30 0RF ranolazine 500 mg Tablet Extended Release 12 Hr 500 mg PO BID 30 Days Qty: 60 0RF Continued duloxetine [Cymbalta] 60 mg capsule,delayed release(DR/EC) 60 mg PO DAILY gabapentin 600 mg tablet 300 mg PO BID fluticasone furoate-vilanterol [Breo Ellipta] 200-25 mcg/dose blister with device 1 inh inhalation QDAY Qty: 60 6RF Rx Instructions: after inhalation, rinse mouth with water and spit out; do not swallow glimepiride 2 MG tablet 2 mg PO QHS Patient Comments: buspirone 7.5 mg tablet 7.5 mg PO BID Patient Comments: PT IS NOT SURE OF THE DOSAGE latanoprost 0.005 % Drops 1 drp LEFT EYE QPM carvedilol 25 mg tablet 25 mg PO BID Patient Comments: PT IS NOT SURE OF THE DOSAGE losartan 100 mg tablet 100 mg PO DAILY oxybutynin chloride 10 mg tablet extended release 24hr 10 mg PO DAILY timolol maleate 0.5 % drops 1 drp LEFT EYE DAILY rosuvastatin 20 mg tablet 10 mg PO DAILY infliximab [Remicade] 100 mg recon soln 100 mg IV .Q7W Patient Comments: INFUSE 10MG/KG IV EVERY 7 WEEKS. DUE ON Saturday09/06/23 potassium chloride 10 mEq tablet,ER particles/crystals 10 meq PO DAILY guaifenesin [Mucus Relief ER] 1,200 mg Tablet Extended Release 12hr 1,200 mg PO BID Qty: 20 0RF quetiapine 50 mg tablet 50 mg PO quetiapine 25 mg tablet 25 mg PO DAILY amlodipine 10 mg tablet 5 mg PO DAILY Patient Comments: PT IS NOT SURE OF THE DOSAGE apixaban 5 mg tablet 5 mg PO BID Qty: 180 3RF Patient Comments: PT IS NOT SURE OF THE DOSAGE hydralazine 100 mg tablet 100 mg PO TID Qty: 270 3RF montelukast 10 mg tablet 10 mg PO QPM Qty: 30 3RF isosorbide mononitrate 60 mg tablet extended release 24 hr 60 mg PO BID Qty: 90 3RF amiodarone 200 mg tablet See Rx Instructions .ROUTE .COMPLEX Qty: 45 3RF Dose Instruction: Take 1/2 (one-half) tablet by mouth once daily Patient Comments: PT IS NOT SURE OF THE DOSAGE Rx Instructions: Take 1/2 (one-half) tablet by mouth once daily doxazosin 4 mg tablet See Rx Instructions .ROUTE .COMPLEX Qty: 60 11RF Dose Instruction: Take 1 tablet by mouth twice daily Rx Instructions: Take 1 tablet by mouth twice daily phenazopyridine 100 mg tablet 100 mg PO TID PRN (Reason: pain) Qty: 30 0RF Rx Instructions: take one tab PO tid Discontinued levofloxacin 750 mg tablet 750 mg PO Q48H Qty: 4 0RF Referrals / Follow Up: Ronaldo Mishra MD [Med Staff - Active Staff] - Within 1 Month Jayme Yang MD [Primary Care Provider] - Within 1 Week Disposition Disposition (needs filled in before D/C Order can be placed): Home, Self Care
--- NOTE | 2023-11-13 09:15 | CASEMGMT ---
OCTAVIO BERMUDEZ Discharge Planning Assessment: Face to Face with patient for initial transition planning/care coordination assessment. OCTAVIO BERMUDEZ introduced self and role at [facility], pt voices understanding. Pt alert, answering questions appropriately and agreeable to participating in assessment with his at bedside. Care providers, pharmacy, and demographics verified. Admitting dx: CP, hypokalemia LACE Strata: 3 PCP: Elio Specialists: [facility] ([facility]) Preferred Pharmacy: [facility] Insurance: [facility] Prescription Benefit: yes LNOK: spouse Natasha Living Arrangements: Pt lives with his spouse and states he is independent at baseline with ADLs. Pt's spouse is able to assist pt if needed with ADLs and IADLs. Transportation: Pt has been driving and is able to assist with driving when pt is unable. Both deny concerns with transportation. DME: CPAP without O2 bleed in Pt?s goal/plan: Pt states he plans to return home with the support of his . Pt denies any discharge needs or concerns at this time. Plan: Home w/spouse Bishnu Langley RN ACM
[2023-11-13] MEDS: busPIRone 5 MG Tablet 7.5 MG PO (09:36)
[2023-11-13] MEDS: Clopidogrel Bisulfate 75 MG Tablet PO (09:39)
[2023-11-13] MEDS: Doxazosin 4 MG Tablet PO (09:40)
[2023-11-13] MEDS: Amiodarone 200 MG Tablet 100 MG PO (09:41)
[2023-11-13] MEDS: Losartan Potassium 100 MG Tablet PO (09:43)
[2023-11-13] MEDS: DULoxetine Hcl 60 MG Capsule PO (09:44)
[2023-11-13] MEDS: APIXABAN 5 MG TABLET PO (09:45)
[2023-11-13] MEDS: Tolterodine Tartrate 2 MG CAP.SA PO (09:45)
[2023-11-13] MEDS: Isosorbide Mononitrate 60 MG Tablet PO (09:46)
[2023-11-13] MEDS: Potassium Chloride Oral Tablet 10 MEQ PO (09:47)
[2023-11-13] MEDS: guaiFENesin 1,200 MG Tablet 1200 MG PO (09:48)
[2023-11-13] MEDS: Gabapentin 300 MG Capsule PO (09:48)
[2023-11-13] MEDS: amLODIPine 5 MG Tablet PO (09:49)
[2023-11-13] MEDS: Ranolazine 500 MG Tablet PO (09:50)
[2023-11-13] MEDS: QUEtiapine 25 MG Tablet PO (09:53)
[2023-11-13] MEDS: Timolol 0.5% 5ML OPTH.BTL 1 DRP LEFT EYE (09:54)
--- NOTE | 2023-11-13 11:29 | PHA.DC_ITS ---
Pharmacy [facility] has performed discharge medication reconciliation and counseling for this patient. 1. CLOPIDOGREL 75MG PO DAILY 2. RANOLAZINE 500MG PO BID The patient's discharge medication list was reviewed for discrepancies and discrepancies were resolved. The patient was counseled on the following discharge medications and changes in medications for homegoing were reviewed. The Reason for Use, instructions for use, and potential side effects were reviewed for all new medications. The patient's questions regarding all of their medications were answered. The patient was able to verbally demonstrate an understanding of their discharge medications. Patient counseled by pharmacy benefits coordinator, Davion. Medications at Discharge Home Medications glimepiride 2 mg tablet 2 mg PO QHS diabetes 01/22/18 duloxetine 60 mg capsule,delayed release (Cymbalta) 60 mg PO DAILY depression 06/02/19 buspirone 7.5 mg tablet 7.5 mg PO BID depression/anxiety 04/12/21 latanoprost 0.005 % eye drops 1 drp LEFT EYE QPM eye health 12/22/21 gabapentin 600 mg tablet 300 mg PO BID neuropathy 01/26/22 carvedilol 25 mg tablet 25 mg PO BID HEART 10/02/22 losartan 100 mg tablet 100 mg PO DAILY BLOOD PRESSURE 10/02/22 oxybutynin chloride 10 mg tablet,extended release 24 hr 10 mg PO DAILY bladder 10/04/22 timolol maleate 0.5 % eye drops 1 drp LEFT EYE DAILY EYE HEALTH 10/04/22 apixaban 5 mg tablet 5 mg PO BID afib #180 tabs 12/03/22 rosuvastatin 20 mg tablet 10 mg PO DAILY cholesterol 03/21/23 fluticasone furoate 200 mcg-vilanterol 25 mcg/dose inhalation powder (Breo Ellipta) 1 inh inhalation QDAY #60 ea 04/04/23 infliximab 100 mg intravenous solution (Remicade) 100 mg IV .Q7W crohns 05/24/23 hydralazine 100 mg tablet 100 mg PO TID BLOOD PRESSURE #270 tabs 06/14/23 isosorbide mononitrate 60 mg tablet,extended release 24 hr 60 mg PO BID BLOOD PRESSURE #90 tabs 07/25/23 montelukast 10 mg tablet 10 mg PO QPM #30 tabs 07/25/23 amiodarone 200 mg tablet See Rx Instructions .Route .COMPLEX #45 TABLETS 08/28/23 potassium chloride 10 mEq tablet,extended release(part/cryst) 10 meq PO DAILY supplement 09/04/23 guaifenesin 1,200 mg tablet, extended release 12 hr (Mucus Relief ER) 1,200 mg PO BID #20 tabs 09/05/23 amlodipine 10 mg tablet 5 mg PO DAILY 09/20/23 quetiapine 25 mg tablet 25 mg PO DAILY 09/20/23 doxazosin 4 mg tablet See Rx Instructions .Route .COMPLEX #60 TABLETS 10/14/23 phenazopyridine 100 mg tablet 100 mg PO TID PRN pain #30 tabs 11/08/23 quetiapine 50 mg tablet 50 mg PO 11/11/23 clopidogrel 75 mg tablet 75 mg PO DAILY 30 days #30 tabs 11/13/23 ranolazine 500 mg tablet,extended release,12 hr 500 mg PO BID 30 days #60 tabs 11/13/23
[2023-11-13] MEDS: Carvedilol 25 MG Tablet PO (11:42)
--- NOTE | 2023-11-13 18:11 | DS.PCM_ITS ---
Providers Date of Admission: 11/12/23 Primary Care Physician: Dr. Jayme Yang MD Consultations 11/12/23 03:45 Consult: Cardiology Routine Consulting Provider: Dom Sarabia Reason for Consult: NSTEMI EMERGENT Consult: No MD Notified: Yes Date Notified: 11/12/23 Time Notified: 06:51 Method of Notification: Text Method of Consult:: In-Person Reason For Visit: CHEST PAIN AND HYPOKALEMIA Diagnosis Discharge Diagnosis (1) NSTEMI, initial episode of care: Status: Acute Code(s): I21.4 - Non-ST elevation (NSTEMI) myocardial infarction (2) Essential hypertension: Status: Acute Code(s): I10 - Essential (primary) hypertension (3) Anticoagulant long-term use: Status: Acute Code(s): 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 transplanted heart: [place] heart Qualified Code(s): I25.10 - Atherosclerotic heart disease of [place] coronary artery without angina pectoris Medications at Discharge Home Medications glimepiride 2 mg tablet 2 mg PO QHS diabetes 01/22/18 duloxetine 60 mg capsule,delayed release (Cymbalta) 60 mg PO DAILY depression 06/02/19 buspirone 7.5 mg tablet 7.5 mg PO BID depression/anxiety 04/12/21 latanoprost 0.005 % eye drops 1 drp LEFT EYE QPM eye health 12/22/21 gabapentin 600 mg tablet 300 mg PO BID neuropathy 01/26/22 carvedilol 25 mg tablet 25 mg PO BID HEART 10/02/22 losartan 100 mg tablet 100 mg PO DAILY BLOOD PRESSURE 10/02/22 oxybutynin chloride 10 mg tablet,extended release 24 hr 10 mg PO DAILY bladder 10/04/22 timolol maleate 0.5 % eye drops 1 drp LEFT EYE DAILY EYE HEALTH 10/04/22 apixaban 5 mg tablet 5 mg PO BID afib #180 tabs 12/03/22 rosuvastatin 20 mg tablet 10 mg PO DAILY cholesterol 03/21/23 fluticasone furoate 200 mcg-vilanterol 25 mcg/dose inhalation powder (Breo Ellipta) 1 inh inhalation QDAY #60 ea 04/04/23 infliximab 100 mg intravenous solution (Remicade) 100 mg IV .Q7W crohns 05/24/23 hydralazine 100 mg tablet 100 mg PO TID BLOOD PRESSURE #270 tabs 06/14/23 isosorbide mononitrate 60 mg tablet,extended release 24 hr 60 mg PO BID BLOOD PRESSURE #90 tabs 07/25/23 montelukast 10 mg tablet 10 mg PO QPM #30 tabs 07/25/23 amiodarone 200 mg tablet See Rx Instructions .Route .COMPLEX #45 TABLETS 08/28/23 potassium chloride 10 mEq tablet,extended release(part/cryst) 10 meq PO DAILY supplement 09/04/23 guaifenesin 1,200 mg tablet, extended release 12 hr (Mucus Relief ER) 1,200 mg PO BID #20 tabs 09/05/23 amlodipine 10 mg tablet 5 mg PO DAILY 09/20/23 quetiapine 25 mg tablet 25 mg PO DAILY 09/20/23 doxazosin 4 mg tablet See Rx Instructions .Route .COMPLEX #60 TABLETS 10/14/23 phenazopyridine 100 mg tablet 100 mg PO TID PRN pain #30 tabs 11/08/23 quetiapine 50 mg tablet 50 mg PO 11/11/23 clopidogrel 75 mg tablet 75 mg PO DAILY 30 days #30 tabs 11/13/23 ranolazine 500 mg tablet,extended release,12 hr 500 mg PO BID 30 days #60 tabs 11/13/23 Hospital Course Operations None Procedures 2-D Echocardiogram Summary of Care Provided Minutes Spent on Discharge: 34 Hospital Course: Per HPI: MEGAN GIMENEZ, is a 78 M with a past medical history of essential hypertension, obesity; with BMI 35.4 this admission, obstructive sleep apnea; on BiPAP, history of pulmonary hypertension, remote history of tobacco abuse (quit 1975), paroxysmal atrial fibrillation; on Eliquis and amiodarone, history of NSVT, history of rheumatoid aortitis, history of allergy to aspirin; which causes mouth/tongue swelling, diabetes mellitus type 2; of unknown control, history of prostate cancer; s/p 20 radiation treatments, history Crohn's disease; on infliximab, chronic gout, history of nonrheumatic aortic stenosis, mild asthma, history of renal calculi, history of colonic diverticulosis, history of colectomy, history of pneumonia, history of COVID-19 (July 2023), generalized anxiety with depression, glaucoma, osteoarthritis; s/p cervical fusion and bilateral total knee replacements and history of coronary artery dis ease; without stent placement with history of left heart catheterization on December 22, 2021 who presents to [facility] ER complaining of chest pain. Mr. Gimenez reports his symptoms began earlier in the day on 11/11/2023 while he was at rest with the abrupt onset of chest pain while he was sitting in his chair. He describes the chest pain as left-sided, anterior, radiating up into his shoulders and both arms with a heavy sensation with nothing seeming to make the pain better or worse. He also admits to associated shortness of breath slightly worse than his baseline. He admits to nausea with vomiting x 2 with bilious emesis with no blood seen and no related abdominal pain. He does admit to intermittent lightheadedness and dizziness and he claims he is chest pain-free at this time. In the ER he was noted to have a positive third troponin of 146 pg/mL and a nonspecific EKG consistent with a suspected NSTEMI with laboratory evidence of mild hypokalemia of 3.4 mmol/L present on admission and he was then admitted to the PCU for ongoing care for status expected to be greater than 48 hours. Hospital Course: 1. Chest pain with a history of CAD without stent placement due to demand ischemia/paroxysmal A-fib/HTN/HLD?78-year-old male with a history of coronary artery disease who is a not a surgical candidate and is managed with medical management presents to the hospital with chest pain. He had a mild elevation in his troponin to 146 on admission with nonspecific EKG changes. Given his comorbidities he is never likely to be a surgical candidate and will essentially be managed with medications going forward. We did make some medication changes from his home medications with the addition of Ranexa and Plavix in the setting of his continued Eliquis use. During his hospitalization he had an echo on 11/12/2023 with an EF of 55% with indeterminate diastolic function secondary to his A-fib no significant valvular disease. Today he was denying any chest pain and cardiology felt that he was stable for discharge. This was a little bit complicated with the rise in blood pressure however it was noted that his Coreg had not been restarted on admission therefore he was given a dose this morning and discharged home. I discussed with him and his the plan for discharge and they both expressed understanding of the risk and benefits of going home and would like to go home today. I do recommend close outpatient follow-up with his PCP and cardiology. 2. Type 2 diabetes, chronic kidney disease stage IIIb, glaucoma, SUPA, GERD, history of prostate cancer are all chronic medical conditions which complicate his care. His home medications were continued where appropriate Physical Exam Narrative General: Alert, Oriented x3, Cooperative, No apparent distress HEENT: Atraumatic, PERRLA, EOMI, Normocephalic Oral: Moist Mucosa Neck: Supple, No JVD Lungs: Diminished, Normal air movement, No rhonchi, No wheeze, No rales Cardiovascular: Regular rate, Regular Rhythm, Normal S1, Normal S2, No murmurs Abdomen: Soft, Non Tender, Non-Distended, No Hepato-splenomegaly Extremities: No edema, Capillary Refill Less than 3 Seconds Skin: No rashes, No breakdown Musculoskeletal: No Tenderness to Palpation of Joints or Extremities Neurological: No focal neurological deficits, Motor Exam 5/5 strength throughout, Sensory exam intact to light touch and pain Psych/Mental Status: Normal Affect, Appropriate Weight / BMI Weight Weight: 219 lb 5.759 oz Body Mass Index (BMI) 34.3 ABG / Lab / Microbiology Data 11/12/23 08:36 11/13/23 06:15 Laboratory: Laboratory Results - last 24 hr 11/13/23 06:15: Sodium 146 H, Potassium 3.5, Chloride 111 H, Carbon Dioxide 31.0, Anion Gap 4 L, BUN 21 H, Creatinine 1.21, Estim Creat Clear Calc 55.64, Est GFR (MDRD) Af Amer 74, Est GFR (MDRD) Non-Af 61, BUN/Creatinine Ratio 17.4, Glucose 139 H, Calcium 8.9 Microbiology: Microbiology 11/11/23 20:20 Mucosa - Nose SARS-CoV-2, Influenza & RSV (PCR) - Final D/C Instructions Discharge Diet: Low fat / Low cholesterol and Carb Control Diet Call your doctor if you observe: Fever of 101 or Higher, Shortness of breath, D izziness, Fainting spells, Swelling in the ankles, Chest pain and Increased palpitations (irregular heartbeat) Meaningful Use Info Meaningful Use Diagnoses (Choose all that apply): None applicable Discharge Plan Admission Admit Date/Time: 11/12/23 15:34 Attending Provider: Boris Bojorquez Primary Care Provider: Jayme Yang Consulting Providers: Dyan Oviedo; Arnaud Watkins; Laurita White; Deng Vieira; Maxine Miguel; Ronaldo Mishra; Mumtaz Elizondo; Rico Parish; Makenna Naqvi; Miguel Ashton; Rachid Escobedo; Myrna Hendrix; Clifford Cordero; Jayme Lino; Channing Maldonado; Domenico Ordaz; Nabil Marie; Teja Jefferson VIDEO NETWORK ENGINEER; Dyan Chavez VIDEO NETWORK ENGINEER; Faye Martinez; Laureano Lucero; Js Lee Discharge Orders/Prescriptions Prescriptions: New clopidogrel 75 mg Tablet 75 mg PO DAILY 30 Days Qty: 30 0RF ranolazine 500 mg Tablet Extended Release 12 Hr 500 mg PO BID 30 Days Qty: 60 0RF Continued duloxetine [Cymbalta] 60 mg capsule,delayed release(DR/EC) 60 mg PO DAILY gabapentin 600 mg tablet 300 mg PO BID fluticasone furoate-vilanterol [Breo Ellipta] 200-25 mcg/dose blister with device 1 inh inhalation QDAY Qty: 60 6RF Rx Instructions: after inhalation, rinse mouth with water and spit out; do not swallow glimepiride 2 MG tablet 2 mg PO QHS Patient Comments: buspirone 7.5 mg tablet 7.5 mg PO BID Patient Comments: PT IS NOT SURE OF THE DOSAGE latanoprost 0.005 % Drops 1 drp LEFT EYE QPM carvedilol 25 mg tablet 25 mg PO BID Patient Comments: PT IS NOT SURE OF THE DOSAGE losartan 100 mg tablet 100 mg PO DAILY oxybutynin chloride 10 mg tablet extended release 24hr 10 mg PO DAILY timolol maleate 0.5 % drops 1 drp LEFT EYE DAILY rosuvastatin 20 mg tablet 10 mg PO DAILY infliximab [Remicade] 100 mg recon soln 100 mg IV .Q7W Patient Comments: INFUSE 10MG/KG IV EVERY 7 WEEKS. DUE ON Saturday09/06/23 potassium chloride 10 mEq tablet,ER particles/crystals 10 meq PO DAILY guaifenesin [Mucus Relief ER] 1,200 mg Tablet Extended Release 12hr 1,200 mg PO BID Qty: 20 0RF quetiapine 50 mg tablet 50 mg PO quetiapine 25 mg tablet 25 mg PO DAILY amlodipine 10 mg tablet 5 mg PO DAILY Patient Comments: PT IS NOT SURE OF THE DOSAGE apixaban 5 mg tablet 5 mg PO BID Qty: 180 3RF Patient Comments: PT IS NOT SURE OF THE DOSAGE hydralazine 100 mg tablet 100 mg PO TID Qty: 270 3RF montelukast 10 mg tablet 10 mg PO QPM Qty: 30 3RF isosorbide mononitrate 60 mg tablet extended release 24 hr 60 mg PO BID Qty: 90 3RF amiodarone 200 mg tablet See Rx Instructions .ROUTE .COMPLEX Qty: 45 3RF Dose Instruction: Take 1/2 (one-half) tablet by mouth once daily Patient Comments: PT IS NOT SURE OF THE DOSAGE Rx Instructions: Take 1/2 (one-half) tablet by mouth once daily doxazosin 4 mg tablet See Rx Instructions .ROUTE .COMPLEX Qty: 60 11RF Dose Instruction: Take 1 tablet by mouth twice daily Rx Instructions: Take 1 tablet by mouth twice daily phenazopyridine 100 mg tablet 100 mg PO TID PRN (Reason: pain) Qty: 30 0RF Rx Instructions: take one tab PO tid Discontinued levofloxacin 750 mg tablet 750 mg PO Q48H Qty: 4 0RF Referrals / Follow Up: Jayme Yang MD [Primary Care Provider] - 11/20/23 8:50 am Dyan Chavez NP, VIDEO NETWORK ENGINEER-C [Non-Staff -Ordering Privileges] - 12/04/23 10:30 am Disposition Disposition (needs filled in before D/C Order can be placed): Home, Self Care Charges/Coding Visit Charges Inpatient E&M: 35575 Disch Hosp >30min
== END 2023-11-13 13:34 | disposition home or self-care (01) | DRG 311 ==
LOC: ED 22:11 → PCU 22:53
PROVIDERS: Hospitalist; Admitting Provider Internal Medicine; Emergency Provider Emergency Medicine; PCP Family Medicine; Visit Provider Family Medicine
DX: I24.89 Other forms of acute ischemic heart disease (principal); K50.90 Crohn's disease, unspecified, without complications; N13.8 Other obstructive and reflux uropathy; D63.1 Anemia in chronic kidney disease; E11.22 Type 2 diabetes mellitus with diabetic chronic kidney disease; E11.40 Type 2 diabetes mellitus with diabetic neuropathy, unspecified; N18.32 Chronic kidney disease, stage 3b; E11.65 Type 2 diabetes mellitus with hyperglycemia; I48.0 Paroxysmal atrial fibrillation; I12.9 Hypertensive chronic kidney disease with stage 1 through stage 4 chronic kidney disease, or unspecified chronic kidney disease; I35.0 Nonrheumatic aortic (valve) stenosis; F32.A Depression, unspecified; I25.10 Atherosclerotic heart disease of native coronary artery without angina pectoris; E78.00 Pure hypercholesterolemia, unspecified; E87.6 Hypokalemia; I25.2 Old myocardial infarction; G47.33 Obstructive sleep apnea (adult) (pediatric); K21.9 Gastro-esophageal reflux disease without esophagitis; E66.9 Obesity, unspecified; N32.81 Overactive bladder; Z68.35 Body mass index [BMI] 35.0-35.9, adult; F41.1 Generalized anxiety disorder; N40.1 Benign prostatic hyperplasia with lower urinary tract symptoms; Z66 Do not resuscitate; Z98.1 Arthrodesis status; Z96.653 Presence of artificial knee joint, bilateral; Z79.01 Long term (current) use of anticoagulants; Z79.51 Long term (current) use of inhaled steroids; Z79.84 Long term (current) use of oral hypoglycemic drugs; Z79.899 Other long term (current) drug therapy; Z85.46 Personal history of malignant neoplasm of prostate; Z86.16 Personal history of COVID-19; Z87.891 Personal history of nicotine dependence
CPT/HCPCS: 36415; 71045; 80048; 80061; 83735; 84484; 85025; 85027; 87631; 93005; 93306; 94640; 94660; 99285; Q9957; A4216; C8929; J2405

== ENCOUNTER → 2023-12-11 | Outpatient (CLI) | payer MEDICARE, SELFPAY ==
[2023-12-11 11:46] LABS: PSA,Total- Diagnostic 0.07 ng/mL (0.0-4.0); Thyroid Stim Hormone (TSH) 5.13 uIU/mL (0.358-3.74)
--- OUTSIDE RECORDS SUMMARY | 2023-12-11 12:17 | XMS RPT_ITS | CCD ---
Author Name Unknown Address [address] [place] [address] Organization [facility] Care Team Providers Care Police Aide Name Role Phone Anabelle Mead Unavailable Asuncion CUNNINGHAM, Yasmin Ambrocio Unavailable Unavailable Gricel CUNNINGHAM, Faye Curry Unavailable Asuncion CUNNINGHAM, Yasmin Ambrocio Unavailable Unavailable DeFinis, Harumi Y Unavailable Unavailable Chong, Kaylene Unavailable Unavailable Allergies Allergy Classification Reported Allergen(s) Allergy Type Date of Onset Reaction(s) Facility (6 sources) aspirin drug allergy 12-12-2016 Mouth Swelling [facility] Work Phone: (6 sources) morphine drug allergy 12-12-2016 GI Problems [facility] Work Phone: Medications Completed/Discontinued Medications Medication Drug Class(es) Dates Sig (Normalized) Sig (Original) AMLODIPINE BESY-BENAZEPRIL HCL (6 sources) Dihydropyridine Calcium Channel Kenji, Angiotensin Converting Enzyme Inhibitor Start: 12-12-2016 take 1 tablet by mouth once daily LOTREL 10-40 MG CAPS One tablet by mouth daily AMLODIPINE BESY-BENAZEPRIL HCL [id number] Faye Monsalve RN Problems Active Problems Problem [...] (Body Mass Index) 34.12 kg/m2 Kaylene Fernandes [facility] Work Phone: 03-22-2017 09:32-0400 BP Diastolic 88 mm[Hg] Kaylene Chong [facility] Work Phone: 03-22-2017 09:32-0400 BP Systolic 146 mm[Hg] Kaylene Chong [facility] Work Phone: 03-22-2017 09:32-0400 Height 167.64 cm Kaylene Chong [facility] Work Phone: 03-22-2017 09:32-0400 Pulse (Heart Rate) 72 /min Kaylene Chong [facility] Work Phone: 03-22-2017 09:32-0400 Respiratory Rate 20 /min Kaylene Chong [facility] Work Phone: 03-22-2017 09:32-0400 Weight 95.89 kg Kaylene Chong [facility] Work Phone: 12-13-2016 14:06-0400 Heart rate 71 /min Natalee Hernandez [facility] Work Phone: 12-13-2016 13:33-0400 BMI (Body Mass Index) 34.21 kg/m2 Yasmin Roland RN [facility] Work Phone: 12-13-2016 13:33-0400 BP Diastolic 78 mm[Hg] Yasmin Roland RN [facility] Work Phone: 12-13-2016 13:33-0400 BP Systolic 138 mm[Hg] Yasmin Roland RN [facility] Work Phone: 12-13-2016 13:33-0400 Height 167.64 cm Yasmin Roland RN [facility] Work Phone: 12-13-2016 13:33-0400 Pulse (Heart Rate) 80 /min Yasmin Roland RN [facility] Work Phone: 12-13-2016 13:33-0400 Respiratory Rate 16 /min Yasmin Roland RN [facility] Work Phone: 12-13-2016 13:33-0400 Weight [...] Phone: Start: 03-22-2017 End: 03-22-2017 Appointment Appointment [facility] Work Phone: Start: 03-22-2017 End: 03-22-2017 Follow Up Appt 6 months Follow Up Appt 6 months [facility] Work Phone: Start: 03-22-2017 End: 03-22-2017 PFM PFM [facility] Work Phone: Start: 12-13-2016 End: 02-07-2017 *BMP *BMP [facility] Work Phone: Start: 12-13-2016 End: 02-07-2017 CBC W Auto Differential panel - Blood *CBC without Diff [facility] Work Phone: Start: 12-13-2016 End: 12-13-2016 Electrocardiogram, complete EKG (In office) [facility] Work Phone: Start: 12-13-2016 End: 12-13-2016 Follow Up Appt 3 months Follow Up Appt 3 months [facility] [employer] Work Phone: Start: 12-13-2016 End: 12-13-2016 MMM MMM [facility] Work Phone: Start: 12-13-2016 End: 12-13-2016 Remote 30 day ecg rev/report 30 Day Holter Monitor [facility] Work Phone: Start: 12-13-2016 End: 12-13-2016 Tilt table evaluation Tilt Table Test [facility] Work Phone: Summary Purpose Family History No Family History Records FoundNo Family History Records Found Advance Directives No Advanced Directives Records FoundNo Advanced Directives Records Found Hospital Course Note HNO ID: [id number] Author: Erica Greco MD Service: Hospital Medicine [...] AUTHOR AUTHOR'S ORGANIZ ATION 02/25/2020 [facility] FOR RECORDS PERTAINING TO PATIENTS WHO [...] BE BASED ON THE PRIMARY CLINICAL RECORDS. [facility]. provides no warranty or guarantee of the accuracy or completeness of information in this document.
== END | disposition home or self-care (01) ==
LOC: LAB 10:06
PROVIDERS: PCP Family Medicine; Referring Provider Internal Medicine Cardiovascular Disease; Visit Provider Urology
DX: R97.20 Elevated prostate specific antigen [PSA] (principal); R53.83 Other fatigue; Z79.899 Other long term (current) drug therapy
CPT/HCPCS: 36415; 84153; 84443

== ENCOUNTER → 2024-01-10 | Outpatient (CLI) | payer MEDICARE, SELFPAY ==
[2024-01-10 12:25] LABS: Absolute Lymphocyte Count 1.47 X10^3/uL (0.83-4.51); Absolute Neutrophil Count 5.1 X10^3/uL (2.0-7.7); Basophil# 0.02 X10^3/uL; Basophil% 0.3 % (0-1); Eosinophil# 0.12 X10^3/uL; Eosinophils% 1.6 % (0-5); Hematocrit 36.6 % (40-54); Hemoglobin 12.1 g/dL (13.0-16.5); Lymphocyte # 1.47 X10^3/ul (0.83-4.51); Lymphocyte % 19.7 % (19-41); Mean Corp Hgb Conc 33.1 g/dL (32-36); Mean Corpuscular Hgb 31.1 pg (27.0-32.0); Mean Corpuscular Volume 94.1 fL (80-94); Mean Platelet Vol. 11.9 fl (6.2-12.0); Monocyte# 0.72 X10^3/uL; Monocyte% 9.6 % (0-10); NRBC Flagged by Analyzer 0 % (0-5); Neutrophil # 5.12 X10^3/uL (2.7-7.7); Neutrophil % 68.5 % (47-70); Platelet Count 185 K/mm3 (150-450); RBC Distribution Width CV 14.2 % (11.6-14.6); RBC Distribution Width SD 48.6 fl (35.1-43.9); Red Blood Count 3.89 M/mm3 (4.6-6.2); White Blood Count 7.5 K/mm3 (4.4-11.0)
[2024-01-10 13:30] LABS: AST(SGOT) 36 U/L (15-37); Alanine Aminotransfer ALT/SGPT 41 U/L (16-61); Albumin, Serum 3.6 g/dL (3.2-5.0); Alkaline Phosphatase 58 U/L (45-117); Anion Gap 3 (5-15); BUN 20 mg/dL (7-18); BUN/Creat Ratio 12.7 RATIO (10-20); Calcium,Total 9.1 mg/dL (8.5-10.1); Chloride 107 mmol/L (98-107); Creatinine, Serum 1.57 mg/dL (0.70-1.30); EST Glomerular Filtration Rate 46 mL/min (>60); Est Glom Filt Rate - Afr Amer 55 mL/min (>60); Globulin 3.7 g/dL (2.2-4.2); Glucose 119 mg/dL (74-106); Potassium 3.5 mmol/L (3.5-5.1); Protein, Total 7.3 g/dL (6.4-8.2); Sodium Level 139 mmol/L (136-145); Uric Acid 5.8 mg/dL (3.5-7.2)
== END | disposition home or self-care (01) ==
LOC: MTLAB 09:50
PROVIDERS: PCP Family Medicine; Referring Provider Internal Medicine Rheumatology; Visit Provider Internal Medicine Rheumatology
DX: M06.041 Rheumatoid arthritis without rheumatoid factor, right hand (principal); Z79.899 Other long term (current) drug therapy
CPT/HCPCS: 36415; 80053; 84550; 85025

== ENCOUNTER → 2024-03-10 | Outpatient (CLI) | payer MEDICARE, SELFPAY | END | disposition home or self-care (01) | LOC: SL 12:18 | PROVIDERS: PCP Family Medicine; Referring Provider Nurse Practitioner Acute Care; Visit Provider Nurse Practitioner Acute Care | DX: G47.33 Obstructive sleep apnea (adult) (pediatric) (principal) | CPT/HCPCS: 98960; G0463 ==

== ENCOUNTER → 2024-03-13 | Outpatient (CLI) | payer MEDICARE, SELFPAY ==
[2024-03-13 11:34] LABS: Anion Gap 10 (5-15); BUN 18 mg/dL (7-18); BUN/Creat Ratio 11.8 RATIO (10-20); Calcium,Total 8.6 mg/dL (8.5-10.1); Chloride 104 mmol/L (98-107); Creatinine, Serum 1.52 mg/dL (0.70-1.30); EST Glomerular Filtration Rate 47 mL/min (>60); Est Glom Filt Rate - Afr Amer 57 mL/min (>60); Glucose 113 mg/dL (74-106); Potassium 3.8 mmol/L (3.5-5.1); Sodium Level 139 mmol/L (136-145)
== END | disposition home or self-care (01) ==
LOC: MTLAB 08:42
PROVIDERS: PCP Family Medicine; Referring Provider Family Medicine; Visit Provider Family Medicine
DX: M79.89 Other specified soft tissue disorders (principal)
CPT/HCPCS: 36415; 80048

== ENCOUNTER → 2024-03-20 | Outpatient (CLI) | payer MEDICARE, SELFPAY ==
[2024-03-20 10:09] LABS: Absolute Lymphocyte Count 1.02 X10^3/uL (0.83-4.51); Absolute Neutrophil Count 3.1 X10^3/uL (2.0-7.7); Basophil# 0.02 X10^3/uL; Basophil% 0.4 % (0-1); Eosinophils% 2.1 % (0-5); Hematocrit 25.8 % (40-54); Hemoglobin 8.6 g/dL (13.0-16.5); Lymphocyte # 1.02 X10^3/ul (0.83-4.51); Lymphocyte % 21.4 % (19-41); Mean Corp Hgb Conc 33.3 g/dL (32-36); Mean Corpuscular Hgb 31.3 pg (27.0-32.0); Mean Corpuscular Volume 93.8 fL (80-94); Mean Platelet Vol. 11.4 fl (6.2-12.0); Monocyte# 0.46 X10^3/uL; Monocyte% 9.7 % (0-10); NRBC Flagged by Analyzer 0 % (0-5); Neutrophil # 3.14 X10^3/uL (2.7-7.7); Platelet Count 172 K/mm3 (150-450); RBC Distribution Width CV 15.9 % (11.6-14.6); RBC Distribution Width SD 54.4 fl (35.1-43.9); Red Blood Count 2.75 M/mm3 (4.6-6.2); White Blood Count 4.8 K/mm3 (4.4-11.0)
[2024-03-20 10:40] LABS: AST(SGOT) 23 U/L (15-37); Alanine Aminotransfer ALT/SGPT 27 U/L (16-61); Albumin, Serum 3.1 g/dL (3.2-5.0); Alkaline Phosphatase 48 U/L (45-117); Anion Gap 5 (5-15); BUN 17 mg/dL (7-18); BUN/Creat Ratio 11.2 RATIO (10-20); Calcium,Total 8.4 mg/dL (8.5-10.1); Chloride 105 mmol/L (98-107); Creatinine, Serum 1.52 mg/dL (0.70-1.30); EST Glomerular Filtration Rate 47 mL/min (>60); Est Glom Filt Rate - Afr Amer 57 mL/min (>60); Globulin 3.2 g/dL (2.2-4.2); Glucose 127 mg/dL (74-106); Potassium 3.2 mmol/L (3.5-5.1); Protein, Total 6.3 g/dL (6.4-8.2); Sodium Level 139 mmol/L (136-145)
== END | disposition home or self-care (01) ==
LOC: MTLAB 08:32
PROVIDERS: PCP Family Medicine; Referring Provider Internal Medicine Rheumatology; Visit Provider Internal Medicine Rheumatology
DX: M06.00 Rheumatoid arthritis without rheumatoid factor, unspecified site (principal); Z79.899 Other long term (current) drug therapy
CPT/HCPCS: 36415; 80053; 84550; 85025

== ENCOUNTER → 2024-04-03 | Outpatient (CLI) | payer MEDICARE, SELFPAY ==
[2024-04-03 10:51] LABS: PSA,Total- Diagnostic < 0.01 ng/mL (0.0-4.0)
== END | disposition home or self-care (01) ==
LOC: MTLAB 09:27
PROVIDERS: PCP Family Medicine; Referring Provider Student in an Organized Health Care Education/Training Program; Visit Provider Student in an Organized Health Care Education/Training Program
DX: C61 Malignant neoplasm of prostate (principal)
CPT/HCPCS: 36415; 84153

== ENCOUNTER → 2024-04-24 | Outpatient (CLI) | payer MEDICARE, SELFPAY ==
[2024-04-24 12:33] LABS: Anion Gap 7 (5-15); BUN 21 mg/dL (7-18); BUN/Creat Ratio 10.7 RATIO (10-20); Calcium,Total 9.2 mg/dL (8.5-10.1); Chloride 100 mmol/L (98-107); Creatinine, Serum 1.97 mg/dL (0.70-1.30); EST Glomerular Filtration Rate 35 mL/min (>60); Est Glom Filt Rate - Afr Amer 42 mL/min (>60); Glucose 146 mg/dL (74-106); Potassium 2.9 mmol/L (3.5-5.1); Sodium Level 136 mmol/L (136-145)
== END | disposition home or self-care (01) ==
LOC: MFPLAB 10:17
PROVIDERS: PCP Family Medicine; Visit Provider Family Medicine
DX: M79.89 Other specified soft tissue disorders (principal)
CPT/HCPCS: 36415; 80048

== ENCOUNTER → 2024-05-01 | Outpatient (CLI) | payer MEDICARE, SELFPAY ==
[2024-05-01 12:39] LABS: Anion Gap 7 (5-15); BUN 20 mg/dL (7-18); BUN/Creat Ratio 12.4 RATIO (10-20); Chloride 101 mmol/L (98-107); Creatinine, Serum 1.61 mg/dL (0.70-1.30); EST Glomerular Filtration Rate 44 mL/min (>60); Est Glom Filt Rate - Afr Amer 53 mL/min (>60); Glucose 134 mg/dL (74-106); Potassium 3.3 mmol/L (3.5-5.1); Sodium Level 138 mmol/L (136-145)
== END | disposition home or self-care (01) ==
LOC: MTLAB 09:41
PROVIDERS: PCP Family Medicine; Referring Provider Family Medicine; Visit Provider Family Medicine
DX: E87.6 Hypokalemia (principal)
CPT/HCPCS: 36415; 80048

== ENCOUNTER → 2024-05-06 | Outpatient (CLI) | payer MEDICARE, SELFPAY ==
[2024-05-06 12:15] LABS: Absolute Neutrophil Count 2.9 X10^3/uL (2.0-7.7); Basophil# 0.01 X10^3/uL; Basophil% 0.2 % (0-1); Eosinophils% 2.1 % (0-5); Hematocrit 26.3 % (40-54); Hemoglobin 8.7 g/dL (13.0-16.5); Lymphocyte % 25.4 % (19-41); Mean Corp Hgb Conc 33.1 g/dL (32-36); Mean Corpuscular Hgb 31.8 pg (27.0-32.0); Mean Platelet Vol. 10.5 fl (6.2-12.0); Monocyte% 10.6 % (0-10); NRBC Flagged by Analyzer 0 % (0-5); Neutrophil % 61.5 % (47-70); Platelet Count 196 K/mm3 (150-450); RBC Distribution Width CV 14.6 % (11.6-14.6); RBC Distribution Width SD 51.1 fl (35.1-43.9); Red Blood Count 2.74 M/mm3 (4.6-6.2); White Blood Count 4.7 K/mm3 (4.4-11.0)
[2024-05-06 12:32] LABS: Anion Gap 7 (5-15); BUN 23 mg/dL (7-18); BUN/Creat Ratio 13.4 RATIO (10-20); Chloride 106 mmol/L (98-107); Creatinine, Serum 1.72 mg/dL (0.70-1.30); EST Glomerular Filtration Rate 41 mL/min (>60); Est Glom Filt Rate - Afr Amer 50 mL/min (>60); Glucose 133 mg/dL (74-106); Potassium 3.9 mmol/L (3.5-5.1); Sodium Level 139 mmol/L (136-145)
== END | disposition home or self-care (01) ==
LOC: MFPLAB 09:53
PROVIDERS: PCP Family Medicine; Visit Provider Family Medicine
DX: D64.9 Anemia, unspecified (principal); E11.8 Type 2 diabetes mellitus with unspecified complications
CPT/HCPCS: 36415; 80048; 85025

== ENCOUNTER → 2024-06-23 | Outpatient (CLI) | payer MEDICARE, SELFPAY ==
[2024-06-23 09:54] LABS: Hematocrit 30.8 % (40-54); Hemoglobin 9.9 g/dL (13.0-16.5); Mean Corp Hgb Conc 32.1 g/dL (32-36); Mean Corpuscular Hgb 30.7 pg (27.0-32.0); Mean Corpuscular Volume 95.7 fL (80-94); Mean Platelet Vol. 10.7 fl (6.2-12.0); Platelet Count 188 K/mm3 (150-450); RBC Distribution Width CV 14.7 % (11.6-14.6); RBC Distribution Width SD 51.8 fl (35.1-43.9); Red Blood Count 3.22 M/mm3 (4.6-6.2); White Blood Count 4.5 K/mm3 (4.4-11.0)
[2024-06-23 10:49] LABS: Ferritin 117 ng/mL (26-388); Iron 45 ug/dL (65-175); Iron Binding Capacity,Total 278 ug/dL (250-450)
== END | disposition home or self-care (01) ==
LOC: MTLAB 07:23
PROVIDERS: PCP Family Medicine; Referring Provider Internal Medicine Gastroenterology; Visit Provider Internal Medicine Gastroenterology
DX: D50.9 Iron deficiency anemia, unspecified (principal)
CPT/HCPCS: 36415; 82728; 83540; 83550; 85027

== ENCOUNTER → 2024-06-25 | Outpatient (CLI) | payer MEDICARE, SELFPAY ==
[2024-06-25 12:48] LABS: PSA,Total- Diagnostic 0.08 ng/mL (0.0-4.0)
== END | disposition home or self-care (01) ==
LOC: MTLAB 10:14
PROVIDERS: PCP Family Medicine; Referring Provider Nurse Practitioner; Visit Provider Nurse Practitioner
DX: C61 Malignant neoplasm of prostate (principal)
CPT/HCPCS: 36415; 84153

== ENCOUNTER → 2024-07-17 | Outpatient (CLI) | payer MEDICARE, SELFPAY ==
[2024-07-17 12:52] LABS: Protein, Urine (Random) 13.8 mg/dL (<11.9); Protein:Creat Ratio 152 mg/g CRE (0-200)
[2024-07-17 12:59] LABS: Albumin, Serum 3.5 g/dL (3.2-5.0); BUN 20 mg/dL (7-18); BUN/Creat Ratio 12.3 RATIO (10-20); Chloride 108 mmol/L (98-107); Creatinine, Serum 1.63 mg/dL (0.70-1.30); EST Glomerular Filtration Rate 44 mL/min (>60); Est Glom Filt Rate - Afr Amer 53 mL/min (>60); Glucose 136 mg/dL (74-106); Potassium 3.4 mmol/L (3.5-5.1); Sodium Level 141 mmol/L (136-145)
== END | disposition home or self-care (01) ==
LOC: MTLAB 09:52
PROVIDERS: PCP Family Medicine; Referring Provider Internal Medicine Nephrology; Visit Provider Internal Medicine Nephrology
DX: E11.22 Type 2 diabetes mellitus with diabetic chronic kidney disease (principal); N18.31 Chronic kidney disease, stage 3a
CPT/HCPCS: 36415; 80069; 82570; 84156

== ENCOUNTER → 2024-08-06 | Outpatient (CLI) | payer MEDICARE, SELFPAY ==
[2024-08-06 14:55] LABS: Hematocrit 30.7 % (40-54); Mean Corp Hgb Conc 32.6 g/dL (32-36); Mean Corpuscular Hgb 30.9 pg (27.0-32.0); Mean Corpuscular Volume 94.8 fL (80-94); Mean Platelet Vol. 11.7 fl (6.2-12.0); Platelet Count 159 K/mm3 (150-450); RBC Distribution Width CV 15.3 % (11.6-14.6); RBC Distribution Width SD 53.1 fl (35.1-43.9); Red Blood Count 3.24 M/mm3 (4.6-6.2)
[2024-08-06 15:13] LABS: Cholesterol 134 mg/dL (200); High Density Lipoprotein 41 mg/dL; Triglycerides 74 mg/dL; Very Low Density Lipoprotein 15 mg/dL (5-40)
== END | disposition home or self-care (01) ==
PROVIDERS: Internal Medicine Cardiovascular Disease; PCP Family Medicine; Referring Provider Family Medicine; Visit Provider Family Medicine
DX: D64.9 Anemia, unspecified (principal); M25.512 Pain in left shoulder; E03.9 Hypothyroidism, unspecified; Z23 Encounter for immunization
CPT/HCPCS: 36415; 73030; 80061; 84443; 85027

== ENCOUNTER → 2024-09-12 | Outpatient (CLI) | payer MEDICARE, SELFPAY ==
[2024-09-12 09:06] LABS: Absolute Lymphocyte Count 1.42 X10^3/uL (0.83-4.51); Absolute Neutrophil Count 1.7 X10^3/uL (2.0-7.7); Basophil# 0.01 X10^3/uL; Basophil% 0.3 % (0-1); Eosinophil# 0.06 X10^3/uL; Eosinophils% 1.7 % (0-5); Hematocrit 32.1 % (40-54); Hemoglobin 10.5 g/dL (13.0-16.5); Lymphocyte # 1.42 X10^3/ul (0.83-4.51); Lymphocyte % 40.7 % (19-41); Mean Corp Hgb Conc 32.7 g/dL (32-36); Mean Corpuscular Hgb 31.2 pg (27.0-32.0); Mean Corpuscular Volume 95.3 fL (80-94); Mean Platelet Vol. 10.8 fl (6.2-12.0); Monocyte# 0.29 X10^3/uL; Monocyte% 8.3 % (0-10); NRBC Flagged by Analyzer 0 % (0-5); Neutrophil % 48.7 % (47-70); Platelet Count 141 K/mm3 (150-450); RBC Distribution Width CV 15.3 % (11.6-14.6); RBC Distribution Width SD 53.8 fl (35.1-43.9); Red Blood Count 3.37 M/mm3 (4.6-6.2); White Blood Count 3.5 K/mm3 (4.4-11.0)
[2024-09-12 09:44] LABS: ALB/GLOB Ratio 1.1 RATIO (0.9-2.4); AST(SGOT) 19 U/L (15-37); Alanine Aminotransfer ALT/SGPT 32 U/L (16-61); Albumin, Serum 3.5 g/dL (3.2-5.0); Alkaline Phosphatase 48 U/L (45-117); Anion Gap 3 (5-15); BUN 16 mg/dL (7-18); BUN/Creat Ratio 11.7 RATIO (10-20); Calcium,Total 9.1 mg/dL (8.5-10.1); Chloride 108 mmol/L (98-107); Creatinine, Serum 1.37 mg/dL (0.70-1.30); EST Glomerular Filtration Rate 53 mL/min (>60); Est Glom Filt Rate - Afr Amer 64 mL/min (>60); Globulin 3.2 g/dL (2.2-4.2); Glucose 116 mg/dL (74-106); Potassium 3.6 mmol/L (3.5-5.1); Protein, Total 6.7 g/dL (6.4-8.2); Sodium Level 143 mmol/L (136-145); Uric Acid 5.2 mg/dL (3.5-7.2)
== END | disposition home or self-care (01) ==
LOC: LAB 08:37
PROVIDERS: PCP Family Medicine; Referring Provider Internal Medicine Rheumatology; Visit Provider Internal Medicine Rheumatology
DX: M06.09 Rheumatoid arthritis without rheumatoid factor, multiple sites (principal); M15.9 Polyosteoarthritis, unspecified; Z79.899 Other long term (current) drug therapy
CPT/HCPCS: 36415; 80053; 84550; 85025

== ENCOUNTER → 2024-10-05 | Outpatient (CLI) | payer MEDICARE, SELFPAY ==
[2024-10-05 12:29] LABS: PSA,Total- Diagnostic 0.08 ng/mL (0.0-4.0)
== END | disposition home or self-care (01) ==
LOC: MTLAB 09:44
PROVIDERS: PCP Family Medicine; Referring Provider Student in an Organized Health Care Education/Training Program; Visit Provider Student in an Organized Health Care Education/Training Program
DX: C61 Malignant neoplasm of prostate (principal)
CPT/HCPCS: 36415; 84153

== ENCOUNTER → 2024-10-26 | Outpatient (CLI) | payer MEDICARE, SELFPAY ==
--- NOTE | 2024-10-26 15:58 | RAD_ITS ---
INDICATION: PNEUMONIA EXAMINATION/TECHNIQUE: X-RAY - XR Chest 2 Views COMPARISON: FINDINGS: LINES/DEVICES: None. LUNGS: Mild right basilar infiltrate/interstitial prominence. No pneumothorax. MEDIASTINUM AND CARDIOVASCULAR STRUCTURES: Cardiac silhouette is enlarged. Central airways and mediastinal contour are unremarkable. BONES AND SOFT TISSUES: Degenerative changes. RAD/Chest PA and Lateral IMPRESSION: Mild right basilar infiltrate/interstitial prominence. Cardiomegaly. Electronically Signed: Todd Patel DO at 16:13 EST ,
[2024-10-26 17:49] LABS: Absolute Neutrophil Count 1.9 X10^3/uL (2.0-7.7); Basophil# 0.01 X10^3/uL; Basophil% 0.3 % (0-1); Eosinophil# 0.03 X10^3/uL; Eosinophils% 0.9 % (0-5); Hemoglobin 9.6 g/dL (13.0-16.5); Lymphocyte % 34.3 % (19-41); Mean Corp Hgb Conc 33.1 g/dL (32-36); Mean Corpuscular Hgb 31.1 pg (27.0-32.0); Mean Corpuscular Volume 93.9 fL (80-94); Mean Platelet Vol. 11.6 fl (6.2-12.0); Monocyte# 0.38 X10^3/uL; Monocyte% 10.9 % (0-10); NRBC Flagged by Analyzer 0 % (0-5); Neutrophil # 1.86 X10^3/uL (2.7-7.7); Platelet Count 121 K/mm3 (150-450); RBC Distribution Width CV 14.9 % (11.6-14.6); RBC Distribution Width SD 51.6 fl (35.1-43.9); Red Blood Count 3.09 M/mm3 (4.6-6.2); White Blood Count 3.5 K/mm3 (4.4-11.0)
== END | disposition home or self-care (01) ==
LOC: MTLAB 15:57
PROVIDERS: PCP Family Medicine; Referring Provider Family Medicine; Visit Provider Family Medicine
DX: J18.9 Pneumonia, unspecified organism (principal)
CPT/HCPCS: 36415; 71046; 85025

== ENCOUNTER → 2024-12-10 | Outpatient (CLI) | payer MEDICARE, SELFPAY ==
--- NOTE | 2024-12-10 13:48 | STRESSREP_ITS ---
Stress Test Report Date: 12/10/2024 Procedure: Pharmacologic stress nuclear imaging study Indications: CAD Consent: Per the patient Procedure: The patient underwent pharmacologic (Regadenoson) evaluation with a peak heart rate of 84 beats per minute (60%predicted maximal heart rate) and a peak blood pressure of 128/72 mmHg. The baseline ECG demonstrated normal sinus rhythm possible prior anterior AL. EKG during lexiscan infusion revealed no significant ischemic changes. EKG post infusion revealed no significant ischemic changes [There were no cardiac dysrhythmias pretest, during pharmacologic infusion, or recovery]. [There was no complaint of chest discomfort during pharmacologic infusion or recovery]. The examination was discontinued secondary to completion of protocol. Impression: 1. Lexiscan stress test test is negative for Lexiscan infusion induced EKG changes of ischemia. 2. Lexiscan stress test test is negative for Lexiscan infusion induced chest pain. 3. Results of the nuclear portion of the test is as below Myocardial perfusion imaging study: Technique: The patient was injected with 11.4 millicuries of technetium 99m Cardiolite and subsequently rest SPECT Cardiolite nuclear imaging was obtained in the horizontal long, vertical long, and short axis views. The patient underwent pharmacologic [Regadenoson 0.4mg] evaluation. Please see above for details. The patient was injected with 34.3 millicuries of technetium 99m Cardiolite and subsequently stress SPECT Cardiolite nuclear imaging was obtained in the horizontal long, vertical long, and short axis views. A gated Cardiolite study at peak stress was obtained. Interpretation: Rest and stress SPECT Cardiolite nuclear imaging status post realignment, normalization, and attenuation correction demonstrate no evidence of significant ischemia or infarction. Gated images reveal no significant regional wall motion abnormalities. The reported LVEF is 66%. Impression: 1. There is no evidence of significant ischemia or infarction. 2. Estimated ejection fraction is 66%. This note was generated with [employer] software. It may contain incorrect words, spelling, and punctuation that were not noted in checking the note before signing.
== END | disposition home or self-care (01) ==
LOC: CVS 06:16
PROVIDERS: PCP Family Medicine; Referring Provider Nurse Practitioner Family; Visit Provider Nurse Practitioner Family
DX: I25.10 Atherosclerotic heart disease of native coronary artery without angina pectoris (principal); I48.0 Paroxysmal atrial fibrillation; Z98.890 Other specified postprocedural states; Z79.899 Other long term (current) drug therapy
CPT/HCPCS: 78452; 93017; A9500; A4216; J2785

== ENCOUNTER → 2024-12-25 | Outpatient (CLI) | payer MEDICARE, SELFPAY ==
[2024-12-25 13:20] LABS: PSA,Total- Diagnostic 0.06 ng/mL (0.00-4.00)
== END | disposition home or self-care (01) ==
LOC: MTLAB 09:51
PROVIDERS: PCP Family Medicine; Referring Provider Urology; Visit Provider Urology
DX: C61 Malignant neoplasm of prostate (principal)
CPT/HCPCS: 36415; 84153

== ENCOUNTER → 2025-01-06 | Outpatient (CLI) | payer MEDICARE, SELFPAY ==
[2025-01-06 17:53] LABS: Hematocrit 28.2 % (40-54); Hemoglobin 9.3 g/dL (13.0-16.5); Mean Corpuscular Hgb 31.1 pg (27.0-32.0); Mean Corpuscular Volume 94.3 fL (80-94); Mean Platelet Vol. 11.5 fl (6.2-12.0); Platelet Count 146 K/mm3 (150-450); RBC Distribution Width CV 15.5 % (11.6-14.6); RBC Distribution Width SD 54.2 fl (35.1-43.9); Red Blood Count 2.99 M/mm3 (4.6-6.2); White Blood Count 7.3 K/mm3 (4.4-11.0)
[2025-01-06 18:19] LABS: Albumin, Serum 3.7 g/dL (3.4-4.8); Anion Gap 11 (5-15); BUN 21 mg/dL (4-19); Calcium,Total 8.8 mg/dL (7.6-11.0); Carbon Dioxide 23.3 mmol/L (21.0-32.0); Chloride 106 mmol/L (98-108); Creatinine, Serum 1.74 mg/dL (0.70-1.20); EST Glomerular Filtration Rate 39 (>60); Glucose 110 mg/dL (70-99); Phosphorus 3.4 mg/dL (2.7-4.5); Potassium 3.7 mmol/L (3.3-5.1); Sodium Level 140 mmol/L (133-145)
[2025-01-06 19:51] LABS: PTHIN 29 pg/mL (11-61)
[2025-01-06 20:21] LABS: Protein:Creat Ratio 154 mg/g CRE (0-200)
== END | disposition home or self-care (01) ==
LOC: MTLAB 14:33
PROVIDERS: PCP Family Medicine; Referring Provider Internal Medicine Nephrology; Visit Provider Internal Medicine Nephrology
DX: E11.22 Type 2 diabetes mellitus with diabetic chronic kidney disease (principal); N18.31 Chronic kidney disease, stage 3a; D50.9 Iron deficiency anemia, unspecified
CPT/HCPCS: 36415; 80069; 82570; 83970; 84156; 85027

== ENCOUNTER 2025-02-15 16:31 | Emergency (ER) | payer MEDICARE, SELFPAY ==
[2025-02-15 16:31] VITALS: BP 114/57; PULSE 85; RESP 18; TEMP 36.6; O2SAT 97; BMI 29.3
[2025-02-15 16:34] VITALS: TEMP 36.8
--- NOTE | 2025-02-15 16:46 | EKG12_ITS ---
Test Reason : SOB Blood Pressure : */* mmHG Vent. Rate : 91 BPM Atrial Rate : 91 BPM P-R Int : 210 ms QRS Dur : 118 ms QT Int : 394 ms P-R-T Axes : 26 -57 52 degrees QTcB Int : 484 ms Sinus rhythm with 1st degree A-V block Left axis deviation Minimal voltage criteria for LVH, may be normal variant ( [place] product ) Inferior infarct Anteroseptal infarct Abnormal ECG Confirmed by ALBA LAUGHLIN, JAKE ([id number]), editorial specialist CRISTI ROOT ([id number]) on 02/16/2025 1:28:33 PM Referred By: Confirmed By: JAKE WILLIS MD
[2025-02-15 16:54] VITALS: BP 117/54; PULSE 86; RESP 20; TEMP 36.6; O2SAT 95
--- NOTE | 2025-02-15 16:57 | EX.ED.VIS.UR ---
HPI HPI - URI History of Present Illness Chief Complaint: Shortness of Breath Informant: patient and spouse/S.O. Onset/Context/Timing Onset: Weeks (1 week since last Saturday.) Context: Gradual Onset Timing: Continuous Current Severity: Moderate Maximum Severity: Moderate Associated Symptoms Associated Symptoms: Positive for Productive Cough (Yellow and green phlegm. Fever.) Narrative Narrative: 79-year-old male history of diabetes intermittent A-fib currently not on blood thinners due to anemia. He has been coughing with yellow and green productive phlegm for about a week with some shortness of breath. said he had a fever as high as 101.7. No vomiting or diarrhea. Saw his primary care physician today Dr. Jayme Yang was sent to the emergency department for possible admission for pneumonia. Prior similar symptoms: Yes Recent Illness/Hospitalization: No ROS ROS ED Constitutional Constitutional ED: Reports fever(s); Denies chills Eyes Eyes: Denies blurry vision Cardiovascular Cardiovascular: Denies chest pain Respiratory/Chest Respiratory/Chest: Reports cough, dyspnea and sputum Gastrointestinal Gastrointestinal: Denies abdominal pain, diarrhea, nausea or vomiting Genitourinary Genitourinary ED: Denies dysuria or hematuria Musculoskeletal Musculoskeletal: Denies arthralgias Integumentary Denies abscess Neurologic Neurologic: Denies headache(s) Psychiatric Psychiatric: Denies anxiety or depression Endocrine Endocrinology: Denies cold intolerance Hematologic/Lymphatic Hematologic/Lymphatic: Denies easy bleeding, easy bruising or lymphadenopathy Allergic/Immunologic Allergic/Immunologic ED: Denies mouth swelling, tongue swelling or urticaria PFSH PFSH Medical History Abrasion of chin Dysuria BiPAP (biphasic positive airway pressure) dependence Pneumonia Prostate cancer Dyspnea on exertion Depression Anxiety High cholesterol Cancer of prostate with intermediate recurrence risk (stage T2b-c or [place] 7 or PSA 10-20) Heart failure Prostate cancer Sinus drainage HTN (hypertension) Pneumonia Hypokalemia Gout flare Inability to walk Arthralgia of right knee Arthralgia of foot, left Anticoagulant long-term use Effusion, right knee Effusion, left knee Rib pain White coat syndrome without diagnosis of hypertension Fatigue Nonrheumatic aortic (valve) stenosis Atherosclerotic heart disease of [place] coronary artery without angina pectoris Closed head injury Abnormal stress test NSVT (nonsustained ventricular tachycardia) Aortic stenosis LVH (left ventricular hypertrophy) Syncope and collapse SOB (shortness of breath) Wears dentures Wears hearing aid Wears glasses History of steroid therapy Rheumatoid arthritis Arthritis History of renal disease Excessive bleeding Back pain Loss of consciousness Injury of head and neck Gastric reflux Former smoker CPAP (continuous positive airway pressure) dependence Sleep apnea History of edema History of echocardiogram History of stress test Cardiology follow-up encounter History of atrial fibrillation Acute bronchitis with bronchospasm Paroxysmal atrial fibrillation COVID-19 virus infection Severe acute respiratory syndrome coronavirus 2 (SARS-CoV-2) infection ruled out Sepsis Asthma Intractable pain Renal colic on left side Ureterolithiasis Dementia Kidney stones Asymptomatic hypertensive urgency Concussion Essential hypertension Pulmonary hypertension SUPA (obstructive sleep apnea) Diverticula of colon Colitis Bronchitis Atrial fibrillation with RVR Hypertensive urgency Rhinovirus Severe sepsis Acute respiratory insufficiency DM2 (diabetes mellitus, type 2) Hyperlipidemia Inflammatory bowel disease Rheumatoid aortitis Home Medications ?Medication ?Instructions ?Recorded ?Last Taken ?Type duloxetine 60 mg capsule,delayed 60 mg PO DAILY depression 06/02/19 09/20/23 History release (Cymbalta) buspirone 7.5 mg tablet 7.5 mg PO BID depression/anxiety 04/12/21 09/20/23 History latanoprost 0.005 % eye drops 1 drp LEFT EYE QPM eye health 12/22/21 03/20/23 History gabapentin 600 mg tablet 300 mg PO BID neuropathy 01/26/22 11/11/23 17:00 History 300 mg carvedilol 25 mg tablet 25 mg PO BID HEART 10/02/22 09/20/23 History oxybutynin chloride 10 mg 10 mg PO DAILY bladder 10/04/22 09/20/23 History tablet,extended release 24 hr timolol maleate 0.5 % eye drops 1 drp LEFT EYE DAILY EYE HEALTH 10/04/22 03/20/23 History infliximab 100 mg intravenous 100 mg IV .Q7W crohns 05/24/23 09/04/23 History solution (Remicade) guaifenesin 1,200 mg tablet, 1,200 mg PO BID PRN 11/19/23 Unknown History extended release 12 hr (Mucus Relief ER) calcium carbonate (Calcium 600) 600 mg PO DAILY 12/11/23 Unknown History esomeprazole magnesium 20 mg 20 mg PO DAILY 12/11/23 Unknown History capsule,delayed release (Nexium) loratadine 10 mg tablet (Allergy 10 mg PO DAILY 12/11/23 Unknown History Relief (loratadine)) multivitamin 1 tab PO DAILY 12/11/23 Unknown History furosemide 40 mg tablet 40 mg PO DAILY 04/06/24 Unknown History minoxidil 2.5 mg tablet 2.5 mg PO BID 04/06/24 Unknown History semaglutide 0.25 mg or 0.5 mg (2 0.25 mg subcut QWEEK 04/06/24 Unknown History mg/3 mL) subcutaneous pen injector (Ozempic) hydralazine 100 mg tablet 100 mg PO TID BLOOD PRESSURE #270 06/02/24 Unknown Rx tabs levothyroxine 25 mcg tablet 25 mcg PO QDAY #30 tabs 06/26/24 Unknown Rx linaclotide 145 mcg capsule 145 mcg PO QDAY 06/26/24 Unknown History (Linzess) rosuvastatin 20 mg tablet 20 mg PO DAILY for cholesterol #90 07/29/24 Unknown Rx TABLETS isosorbide mononitrate 60 mg 60 mg PO BID BLOOD PRESSURE #180 08/03/24 Unknown Rx tablet,extended release 24 hr tabs doxazosin 4 mg tablet See Rx Instructions .Route 08/31/24 Unknown Rx .COMPLEX #180 TABLETS nystatin 100,000 unit/mL oral 5 ml mucous membrane TID #250 mL 11/17/24 Unknown Rx suspension montelukast 10 mg tablet 10 mg PO QPM #90 tabs 12/21/24 Unknown Rx amiodarone 200 mg tablet See Rx Instructions .Route 12/23/24 Unknown Rx .COMPLEX #45 TABLETS potassium chloride 10 mEq See Rx Instructions .Route 12/23/24 Unknown Rx tablet,extended release(part/cryst) .COMPLEX #90 tabs fluticasone furoate 200 1 inh inhalation QDAY #3 ea 01/22/25 Unknown Rx mcg-vilanterol 25 mcg/dose inhalation powder (Breo Ellipta) azithromycin 250 mg tablet 250 mg PO DAILY 4 days #4 tabs 02/15/25 Unknown Rx (Zithromax) dapagliflozin propanediol 5 mg 5 mg PO DAILY 02/15/25 Unknown History tablet (Farxiga) losartan 50 mg tablet 50 mg PO DAILY 02/15/25 Unknown History Allergy/AdvReac Type Severity Reaction Status Date / Time aspirin Allergy Severe Mouth Verified 02/15/25 16:31 swelling donepezil (From Aricept) AdvReac Severe Swelling Verified 02/15/25 16:31 morphine AdvReac Severe UNABLE TO Verified 02/15/25 16:31 URINATE Family History Mother Heart disease Diabetes Father Heart disease Lung disease Brother Heart disease Lung disease Cancer prostate, pancreatic Sister Diabetes Cancer uterine Surgical History History of cardiac catheterization History of prostate biopsy History of left heart catheterization (LHC) (~12/22/21) Hx of surgical procedure Hx of colectomy Hx of cystoscopy History of bilateral knee replacement History of back surgery Cervical vertebral fusion History of removal of cyst Social History Smoking Status: Former smoker how long ago did patient quit smokin, 2ppd second hand exposure: Yes alcohol intake: never substance use type: does not use caffeine: Yes Type: coffee Number of servings: 2 EXAM Physical Exam Narrative Exam Narrative: -year-old male sitting upright in bed. bedside. Vital signs are stable he is currently afebrile temperature 97.9. Pulse ox 97% room air no hypoxia. No distress. Wet sounding deep cough. H EENT exam pupils round reactive light. Mildly dry mucous membranes. Neck nontender no JVD. No lymphadenopathy. Lungs bilateral rhonchi. No rales. No wheezing. Equal symmetrical. Wet cough. Heart regular rhythm rate about 85 no murmur. Chest wall ribs nontender. Abdomen soft nontender. Moving all 4 extremities. 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 Dorsi plantarflexion intact. Calves are nontender without edema or cords. Neurologically he is awake and alert. Answering questions following commands. Const Vital Signs: 02/15/25 16:31 02/15/25 16:34 02/15/25 16:54 Temperature 97.9 F 98.2 F 97.9 F Temperature Source Temporal Oral Axillary Pulse Rate 85 86 Respiratory Rate 18 20 H Respiratory Effort Respiratory Depth Respiratory Pattern Blood Pressure 114/57 L 117/54 L Blood Pressure Mean 76 75 Pulse Ox 97 95 Oxygen Delivery Method Room Air Room Air 02/15/25 16:56 02/15/25 16:58 02/15/25 17:33 Temperature 97.9 F Temperature Source Axillary Pulse Rate 79 Respiratory Rate 18 Respiratory Effort Labored Respiratory Depth Normal Respiratory Pattern Tachypnea Blood Pressure 154/72 H Blood Pressure Mean 99 Pulse Ox 94 Oxygen Delivery Method Room Air Room Air Room Air 02/15/25 18:00 02/15/25 18:52 Temperature 98.0 F 98.2 F Temperature Source Axillary Pulse Rate 79 86 Respiratory Rate 21 H 20 H Respiratory Effort Respiratory Depth Respiratory Pattern Blood Pressure 141/68 H 138/74 H Blood Pressure Mean 92 95 Pulse Ox 90 93 Oxygen Delivery Method Room Air Positive well nourished and well developed; Negative for obese, cachectic or contractures General Appearance ED: well developed and NAD; Negative for cachectic, contractures, cyanotic, diaphoretic or pallor Nutritional Appearance: Negative for cachectic or obese HEENT Reports dry mucous membranes; Denies moist mucous membranes normocephalic and atraumatic Mouth ED: Yes dry mucous membranes Mouth: dry mucous membranes Throat: posterior oropharynx normal Eyes PERRL and EOMs intact bilaterally Neck no lymphadenopathy, supple and no meningeal signs General: Negative for anterior neck swelling or lymphadenopathy Resp normal respiratory effort and No clear to auscultation bilaterally Auscultation: rhonchi Cardio S1 normal heart sound, S2 normal heart sound and no murmurs Rate: regular rate Rhythm: regular rhythm GI non-tender, non-distended and no masses Auscultation: normoactive bowel sounds Palpation: soft and tender Back/Spine no CVA tenderness and normal ROM General Back: Negative for CVA tenderness Cervical Spine: Negative for cervical spine tenderness Thoracic Spine / Upper Back: Negative for thoracic spinal tenderness Lumbar Spine / Lower Back: Negative for lumbar spinal tenderness Extremity normal to inspection General Extremety ED: Negative for cyanosis or tenderness General Extremity: Negative for cyanosis Neuro oriented x3 and CN's II-XII intact bilaterally Sensorium / Orientation: alert, oriented to person, oriented to place and oriented to time; Negative for orientation impaired, lethargic or stuporous Motor Exam: strength 5/5 throughout Psych mental status grossly normal Attitude: No agitated Mood & Affect: Negative for depressed, anxious or tearful Skin General Skin Exam: Negative for jaundice or pallor Lesions: no lesions Rashes: no rashes MDM MDM MDM Narrative Medical decision making narrative: 79-year-old male wet sounding cough consider pneumonia versus COVID and flu versus other etiologies. Chest x-ray with screening labs and EKG will be obtained. Repeat exam patient is doing well at 1845. I went over test results with both he and his . There is no obvious signs of pneumonia. He is afebrile currently. He has a normal white count. His chest x-ray was similar to prior and was read as negative today by the radiologist. I will put him on Zithromax Z-ADORE. First dose given here. I spoke to Dr. Douglas covering for the patient's primary care physician Dr. Yang. He will follow-up as needed or return if worse. He and his are comfortable with the plan. We did ambulate him his pulse ox stayed 93% on room air in the hallway. History & Record Review Discussion w/independent historian: Family Additional record(s) reviewed:: Prior inpatient record, Prior outpatient record, Prior ED visit and Prior labs Lab Data Attestation: I reviewed the patient's lab results. Lab results narrative: CBC white count 7.4. H&H 9.9 and 29 which is baseline anemia. Platelets 185. Electrolytes shows sodium 137. Gap 12. BUN and creatinine 23 and 1.69 he is chronic renal insufficiency that is consistent with his prior creatinines. Glucose 154. Chest x-ray chronic changes. Cannot rule out a right lower lobe or posterior upper lobe pneumonia. But he has had opacities seen in the same area in the past. Labs: Laboratory Results - last 24 hr 02/15/25 16:50 WBC 7.4 RBC 3.18 L Hgb 9.9 L Hct 29.3 L MCV 92.1 MCH 31.1 MCHC 33.8 RDW Std Deviation 47.8 H RDW Coeff of Azeem 14.1 Plt Count 185 MPV 10.4 Immature Gran % (Auto) 0.300 Neut % (Auto) 65.0 Lymph % (Auto) 22.7 [place] % (Auto) 10.9 H Eos % (Auto) 0.8 Baso % (Auto) 0.3 Absolute Neuts (auto) 4.8 Absolute Lymphs (auto) 1.69 Nucleated RBC % 0 Sodium 137 Potassium 4.0 Chloride 102 Carbon Dioxide 23.1 Anion Gap 12 BUN 23 H Creatinine 1.69 H Estim Creat Clear Calc 33.98 L Est GFR (MDRD) Non-Af 41 L BUN/Creatinine Ratio 13.5 Glucose 154 H Calcium 8.7 Radiography Chest X-Ray - ED: 2 View, Read by ED Physician, Read by Radiologist, Lungs, Mediastinum, Bony Structures, No Acute Disease and Chronic Changes Diagnostic Testing: Clinical Impression(s) from Imaging Studies Chest X-Ray 02/15/25 17:05 IMPRESSION: No evidence of an acute cardiopulmonary abnormality. Reading Location: [facility] Chest x-ray, 2 views, AP and lateral. Read by the radiologist as no acute process. He has cardiomegaly. There is density in the mid thoracic spine on lateral view and question right lower lobe infiltrate. But this has been seen on prior films so was read as no acute process. Rhythm Strip Rhythm Strip: Sinus Rhythm Rate: 91 Ectopy: None EKG Initial EKG: Attestation: I personally reviewed and interpreted this EKG as follows: Interpretation: Sinus Rhythm and No Acute Injury Pattern Comments: Normal sinus rhythm. Rate of 91. First-degree AV block with a VT interval of 210. Discharge Plan Triage Chief Complaint: Shortness of Breath ED Provider: Jonathan Lopez Dx/Rx/DC Orders Clinical Impression: Bronchitis Instructions: Acute Bronchitis Prescriptions: New azithromycin [Zithromax] 250 mg tablet 250 mg PO DAILY 4 Days Qty: 4 0RF Rx Instructions: start on day 2 of therapy No Action duloxetine [Cymbalta] 60 mg capsule,delayed release(DR/EC) 60 mg PO DAILY gabapentin 600 mg tablet 300 mg PO BID guaifenesin [Mucus Relief ER] 1,200 mg tablet extended release 12hr 1,200 mg PO BID PRN furosemide 40 mg tablet 40 mg PO DAILY minoxidil 2.5 mg tablet 2.5 mg PO BID Ozempic 0.25 mg or 0.5 mg (2 mg/3 mL) pen injector 0.25 mg subcut QWEEK Rx Instructions: for 4 weeks multivitamin Tablet 1 tab PO DAILY calcium carbonate [Calcium 600] 600 mg calcium (1,500 mg) tablet 600 mg PO DAILY loratadine [Allergy Relief (loratadine)] 10 mg tablet 10 mg PO DAILY esomeprazole magnesium [Nexium] 20 mg capsule,delayed release(DR/EC) 20 mg PO DAILY Linzess 145 mcg capsule 145 mcg PO QDAY levothyroxine 25 mcg tablet 25 mcg PO QDAY Qty: 30 2RF nystatin 100,000 unit/mL suspension 5 ml mucous membrane TID Qty: 250 1RF Rx Instructions: swish and swallow 5 cc three times per day for 10 days buspirone 7.5 mg tablet 7.5 mg PO BID Patient Comments: PT IS NOT SURE OF THE DOSAGE latanoprost 0.005 % Drops 1 drp LEFT EYE QPM carvedilol 25 mg tablet 25 mg PO BID Patient Comments: PT IS NOT SURE OF THE DOSAGE oxybutynin chloride 10 mg tablet extended release 24hr 10 mg PO DAILY timolol maleate 0.5 % drops 1 drp LEFT EYE DAILY infliximab [Remicade] 100 mg recon soln 100 mg IV .Q7W Patient Comments: INFUSE 10MG/KG IV EVERY 7 WEEKS. DUE ON Saturday09/06/23 losartan 50 mg tablet 50 mg PO DAILY dapagliflozin propanediol [Farxiga] 5 mg tablet 5 mg PO DAILY hydralazine 100 mg tablet 100 mg PO TID Qty: 270 3RF rosuvastatin 20 mg tablet 20 mg PO DAILY Qty: 90 3RF isosorbide mononitrate 60 mg tablet extended release 24 hr 60 mg PO BID Qty: 180 3RF doxazosin 4 mg tablet See Rx Instructions .ROUTE .COMPLEX Qty: 180 3RF Dose Instruction: Take 1 tablet by mouth twice daily Rx Instructions: Take 1 tablet by mouth twice daily montelukast 10 mg tablet 10 mg PO QPM Qty: 90 3RF potassium chloride 10 mEq tablet,ER particles/crystals See Rx Instructions .ROUTE .COMPLEX Qty: 90 3RF Dose Instruction: TAKE 1 TABLET BY MOUTH ONCE DAILY NEEDED FOR SUPPLEMENT Rx Instructions: TAKE 1 TABLET BY MOUTH ONCE DAILY NEEDED FOR SUPPLEMENT amiodarone 200 mg tablet See Rx Instructions .ROUTE .COMPLEX Qty: 45 3RF Dose Instruction: Take 1/2 (one-half) tablet by mouth once daily Patient Comments: PT IS NOT SURE OF THE DOSAGE Rx Instructions: Take 1/2 (one-half) tablet by mouth once daily fluticasone furoate-vilanterol [Breo Ellipta] 200-25 mcg/dose blister with device 1 inh inhalation QDAY Qty: 3 3RF Rx Instructions: after inhalation, rinse mouth with water and spit out; do not swallow Primary Care Provider: Jayme Yang Referrals: Jayme Yang MD [Primary Care Provider] - 3-5 Days if not improving Activity Restrictions/Additional Instructions: Plenty of fluids and rest. Take the antibiotic Zithromax 1 pill a day starting tomorrow at lunch. For 4 more days. You are given your first dose which is 2 pills in the emergency department today. I spoke to your primary care physician's office. I spoke to Dr. Douglas today. Follow-up with their office as needed. Return if feeling worse. Your labs and chest x-ray look good today. Print Language: [place]ian Disposition Disposition: Home, Self Care
[2025-02-15 17:04] LABS: Absolute Lymphocyte Count 1.69 X10^3/uL (0.83-4.51); Absolute Neutrophil Count 4.8 X10^3/uL (2.0-7.7); Basophil# 0.02 X10^3/uL; Basophil% 0.3 % (0-1); Eosinophil# 0.06 X10^3/uL; Eosinophils% 0.8 % (0-5); Hematocrit 29.3 % (40-54); Hemoglobin 9.9 g/dL (13.0-16.5); Lymphocyte # 1.69 X10^3/ul (0.83-4.51); Lymphocyte % 22.7 % (19-41); Mean Corp Hgb Conc 33.8 g/dL (32-36); Mean Corpuscular Hgb 31.1 pg (27.0-32.0); Mean Corpuscular Volume 92.1 fL (80-94); Mean Platelet Vol. 10.4 fl (6.2-12.0); Monocyte# 0.81 X10^3/uL; Monocyte% 10.9 % (0-10); NRBC Flagged by Analyzer 0 % (0-5); Neutrophil # 4.83 X10^3/uL (2.7-7.7); Platelet Count 185 K/mm3 (150-450); RBC Distribution Width CV 14.1 % (11.6-14.6); RBC Distribution Width SD 47.8 fl (35.1-43.9); Red Blood Count 3.18 M/mm3 (4.6-6.2); White Blood Count 7.4 K/mm3 (4.4-11.0)
--- NOTE | 2025-02-15 17:05 | RAD_ITS ---
PROCEDURE: CHEST PA AND LATERAL 02/15/2025 REASON FOR EXAM: CHEST PAIN TECHNIQUE: Frontal and lateral views of the chest. COMPARISON: Chest radiograph 10/26/2024 and 09/21/2023 FINDINGS: Mediastinum: The mediastinal contour is stable. Aortic atherosclerosis. Lungs: There is opacity projecting over the lower thoracic spine on the lateral view, similar to prior exams and likely subdiaphragmatic. No new focal consolidation. No significant pleural effusion. Incidental note of an azygous fissure. Bones: Degenerative changes are identified within the thoracic spine. Postoperative changes of the cervical spine are partially imaged. RAD/Chest PA and Lateral IMPRESSION: No evidence of an acute cardiopulmonary abnormality. Reading Location: [facility]
[2025-02-15 17:19] LABS: Anion Gap 12 (5-15); BUN 23 mg/dL (4-19); BUN/Creat Ratio 13.5 RATIO (10-20); Calcium,Total 8.7 mg/dL (7.6-11.0); Carbon Dioxide 23.1 mmol/L (21.0-32.0); Chloride 102 mmol/L (98-108); Creatinine, Serum 1.69 mg/dL (0.70-1.20); EST Glomerular Filtration Rate 41 (>60); Estimated Creatinine Clearance 33.98 ml/min (50-250); Glucose 154 mg/dL (70-99); Sodium Level 137 mmol/L (133-145)
[2025-02-15] MEDS: 0.9% Normal Saline (500mL Bag) 500 ML 999 ML IV (17:20)
[2025-02-15 17:33] VITALS: BP 154/72; PULSE 79; RESP 18; TEMP 36.6; O2SAT 94
[2025-02-15 18:00] VITALS: BP 141/68; PULSE 79; RESP 21; TEMP 36.7; O2SAT 90
[2025-02-15 18:52] VITALS: BP 138/74; PULSE 86; RESP 20; TEMP 36.8; O2SAT 93
[2025-02-15] MEDS: Azithromycin 250 MG Tablet 500 MG PO (18:57)
== END 2025-02-15 19:17 | disposition home or self-care (01) ==
PROVIDERS: Emergency Provider Emergency Medicine; PCP Family Medicine; Visit Provider Emergency Medicine
DX: J40 Bronchitis, not specified as acute or chronic (principal); I11.0 Hypertensive heart disease with heart failure; I50.9 Heart failure, unspecified; E11.9 Type 2 diabetes mellitus without complications; I25.10 Atherosclerotic heart disease of native coronary artery without angina pectoris; G47.33 Obstructive sleep apnea (adult) (pediatric); Z87.891 Personal history of nicotine dependence; Z86.16 Personal history of COVID-19
CPT/HCPCS: 71046; 80048; 85025; 87631; 93005; 96360; 99284; A4216

== ENCOUNTER → 2025-03-04 | Outpatient (CLI) | payer MEDICARE, SELFPAY ==
--- OUTSIDE RECORDS SUMMARY | 2025-03-04 07:27 | XMS RPT_ITS | CCD ---
Author Organization [facility] Care Team Providers Care Label Fuser Tender Name Role Phone Anabelle Mead Unavailable Asuncion RN, Yasmin Ambrocio Unavailable Unavailable Gricel CUNNINGHAM, Faye Curry Unavailable Asuncion CUNNINGHAM, Yasmin Ambrocio Unavailable Unavailable Mary, Ruslanumi Y Unavailable Unavailable Kaylene Chong Unavailable Unavailable Dr. Jayme Yang Primary Care Provider Dr. Jayme Yang Referring Provider ADRY Gray Attending Provider ADRY Gray Referring Provider ADRY Gray Other Provider Dr. Aquiles Modi Attending Provider Dr. Devon Hogan Attending Provider Dr. Jayme Lino Attending Provider Dr. Jayme Lino Referring Provider Dr. Jayme Lino Other Provider Scott MILLER, JOEYC Dyan Attending Provider Dr. Jonathan Lopez Emergency Provider Dr. Kimmie Nur Admit Provider Dr. Kimmie Nur Attending Provider Dr. Kimmie Nur Other Provider Dr. Makenna Naqvi Other Provider Dr. Makenna Naqvi Attending Provider Dr. Jayme Yang Primary Care Provider Trey, Dr. Delacruz Referring Provider Dr. Jayme Lino Attending Provider Andres SCOUT SNIPER, SCOUT SNIPER-C Emerald Attending Provider Trey, Dr. Delacruz Primary Care Provider Trey, Dr. Delacruz Referring Provider Trey, Dr. Delacruz Primary Care Provider Yang, Dr. Delacruz Referring Provider Scott SCOUT SNIPER, SCOUT SNIPER-C Dyan Attending Provider Trey, Dr. Delacruz Primary Care Provider Trey, Dr. Delacruz Referring Provider Soctt SCOUT SNIPER, SCOUT SNIPER-C Dyan Attending Provider Dr. Aquiles Modi Referring Provider Dr. Aquiles Modi Other Provider Dr. Newton Arroyo Attending Provider Yang, Dr. Delacruz Primary Care Provider Trey, Dr. Delacruz Referring Provider Scott SCOUT SNIPER, SCOUT SNIPER-C Dyan Attending Provider Rian, Dr. Kwan Referring Provider Rian, Dr. Kwan Other Provider Dr. Newton Arroyo Attending Provider Dr. Jayme Yang Primary Care Provider Trey, Dr. Delacruz Referring Provider Dr. Aquiles Modi Attending Provider Scott SCOUT SNIPER, SCOUT SNIPER-C Dyan Attending Provider Dr. Iker Stratton Emergency Provider Dr. Nela Bellamy Attending Provider Dr. Nela Bellamy Admit Provider Dr. Nela Bellamy Other Provider Dr. Boris Bojorquez Attending Provider Dr. Boris Bojorquez Other Provider Dr. Jayme Yang Primary Care Provider Dr. Jayme Yang Referring Provider Dr. Aquiles Modi Attending Provider Scott SCOUT SNIPER, SCOUT SNIPER-C Dyan Attending Provider Dr. Iker Stratton Emergency Provider Dr. Nela Bellamy Attending Provider Dr. Nela Bellamy Admit Provider Dr. Nela Bellamy Other Provider Dr. Boris Bojorquez Attending Provider Dr. Boris Bojorquez Other Provider Michelle RIDER, PA Faye Beckham Attending Provider Dr. Jayme Yang Primary Care Provider Dr. Jayme Yang Referring Provider Scott MILLER, JOEYC Dyan Attending Provider Dr. Iker Stratton Emergency Provider Dr. Nela Bellamy Attending Provider Dr. Nela Bellamy Admit Provider Dr. Nela Bellamy Other Provider Dr. Boris Bojorquez Attending Provider Dr. Boris Bojorquez Other Provider Michelle RIDER, PA Faye Beckham Attending Provider Dr. Jayme Yang Primary Care Provider Dr. Jayme Yang Referring Provider Andres SCOUT SNIPER, SCOUT SNIPER-C Emerald Attending Provider Dr. James Sullivan Emergency Provider Dr. Pedro Ferreira Attending Provider Dr. Pedro Ferreira Admit Provider Dr. Pedro Ferreira Other Provider Dr. Boris Bojorquez Attending Provider Dr. Boris Bojorquez Other Provider Dr. Aquiles Modi Attending Provider Scott SCOUT SNIPER, SCOUT SNIPER-C Dyan Attending Provider Dr. Jayme Yang Primary Care Provider [phone] Trey, Dr. Delacruz Referring Provider Andres MILLER, SCOUT SNIPER-C Emerald Attending Provider [phone] Dr. Jayme Yang Primary Care Provider Trey, Dr. Delacruz Referring Provider Dr. Aquiles Modi Attending Provider Scott MILLER, SCOUT SNIPER-C Dyan Attending Provider Dr. Keo Montemayor Attending Provider [phone] Surinder Larson Referring Provider Dr. Mauricio Soto Emergency Provider Dr. Laureano Lucero Admit Provider Unavailabl e de Dick, Dr. Tinsley Other Provider Unavailabl e Dr. Laureano Lima Attending Provider Unavailable Clarence, Dr. Tinsley Other Provider Unavailable Trey, Dr. Delacruz Primary Care Provider Trey, Dr. Delacruz Referring Provider Dr. Aquiles Modi Attending Provider Dr. Keo Montemayor Referring Provider [phone] Trey, Dr. Delacruz Primary Care Provider Trey, Dr. Delacruz Referring Provider Scott MILLER, ANGELA-C Dyan Attending Provider Dr. Keo Montemayor Attending Provider Dr. Surinder Larson Referring Provider Dr. Aquiles Modi Attending Provider Dr. Keo Montemayor Referring Provider Dr. Mauricio Soto Emergency Provider Dr. Laureano Lucero Admit Provider Unavailabl e Lucero, Dr. Tinsley Other Provider Unavailabl e Clarence, Dr. Tinsley Attending Provider Unavailable Kitsarabjit, Dr. Tinsley Other Provider Unavailable Dr. Jayme Yang Primary Care Provider Dr. Jayme Yang Referring Provider Dr. Jonathan Lopez Emergency Provider Dr. Drake Mason Admit Provider Dr. Drake Mason Attending Provider Dr. Drake Mason Other Provider Dr. Boris Bojorquez Attending Provider Dr. Boris Bojorquez Other Provider Dr. Jayme Yang Primary Care Provider Dr. Keo Montemayor Attending Provider Dr. Ana Maria Barnhart Emergency Provider Dr. Laureano Lucero Attending Provider Unavail able Dyan Oviedo Other Provider Unavailable Dr. Arnaud Watkins Other Provider Unavailable Dr. Laurita White Other Provider Dr. Deng Vieira Other Provider Dr. Maxine Miguel Other Provider Unavailable Dr. Ronaldo Mishra Other Provider Dr. Mumtaz Elizondo Other Provider Dr. Rico Parish Other Provider Dr. Makenna Naqvi Other Provider Dr. Suzie Ashton Attending Provider Dr. Suzie Ashton Other Provider Dr. Rachid Escobedo Other Provider Dr. Myrna Hendrix Other Provider Dr. Clifford Cordero Other Provider Dr. Jayme Lino Other Provider Dr. Channing Maldonado Other Provider Dr. Domenico Ordaz Other Provider Dr. Nabil Marie Other Provider Roof SCOUT SNIPER, SCOUT SNIPER-C Teja Waters Other Provider Scott SCOUT SNIPER, SCOUT SNIPER-C Dyan Other Provider Michelle PA, PA Faye Beckham Other Provider Dr. Js Lee Other Provider Dr. Clifford Cordero Attending Provider Dr. Js Lee Attending Provider [phone] Dr. Jayme Yang Primary Care Provider Dr. Keo Montemayor Attending Provider Dr. Keo Montemayor Referring Provider Dr. Mauricio Soto Emergency Provider Dr. Laureano Lucero Admit Provider Unavailabl e Dr. Laureano Lucero Other Provider Unavailabl e Dr. Laureano Lima Attending Provider Unavailable Dr. Laureano Lima Other Provider Unavailable Dr. Jonathan Lopez Emergency Provider Dr. Drake Mason Admit Provider Dr. Drake Mason Attending Provider Dr. Drake Mason Other Provider Dr. Boris Bojorquez Attending Provider Dr. Boris Bojorquez Other Provider Dr. Ana Maria Barnhart Emergency Provider Dr. Laureano Lucero Attending Provider Unavail able Dr. Suzie Ashton Attending Provider Dr. Laureano Lucero Referring Provider Unavail able Dyan Oviedo Other Provider Unavailable Dr. Arnaud Watkins Other Provider Unavailable Dr. Laurita White Other Provider Dr. Deng Vieira Other Provider Dr. Maxine Miguel Other Provider Unavailable Dr. Ronaldo Mishra Other Provider Dr. Mumtaz Elizondo Other Provider Dr. Rico Parish Other Provider Dr. Makenna Naqvi Other Provider Dr. Suzie Ashton Other Provider Dr. Rachid Escobedo Other Provider Dr. Myrna Hendrix Other Provider Dr. Clifford Cordero Other Provider Dr. Jayme Lino Other Provider Dr. Channing Maldonado Other Provider Dr. Domenico Ordaz Other Provider Dr. Nabil Marie Other Provider Roof SCOUT SNIPER, SCOUT SNIPER-C Teja Waters Other Provider Scott SCOUT SNIPER, SCOUT SNIPER-C Dyan Other Provider Michelle PA, PA Faye Beckham Other Provider Dr. Js Lee Other Provider Dr. Clifford Cordero Attending Provider Dr. Js Lee Attending Provider Dr. Jayme Yang Referring Provider Andres SCOUT SNIPER, SCOUT SNIPER-C Emerald Attending Provider Dr. Jayme Yang Primary Care Provider Dr. Keo Montemayor Attending Provider Dr. Keo Montemayor Referring Provider Lucero Dr. Tinsley Admit Provider Unavailabl e Lucero, Dr. Tinsley Other Provider Unavailabl e Trey LAUGHLIN, Dr. Delacruz Primary Care Provider Farshad LAUGHLIN, Dr. Joel Attending Provider Farshad LAUGHLIN, Dr. Joel Referring Provider [facility], Dr. Crowley Attending Provider [facility], Dr. Crowley Referring Provider Trey LAUGHLIN, Dr. Delacruz Attending Provider Trey LAUGHLIN, Dr. Delacruz Referring Provider Campos SCOUT SNIPER-C, Emerald Attending Provider Roof SCOUT SNIPER-C, Teja H Attending Provider Roof SCOUT SNIPER-C, Teja H Referring Provider Roof SCOUT SNIPER-C, Teja H Other Provider Gil LAUGHLIN, Dr. Horton Attending Provider Marsha LAUGHLIN, Dr. Surinder Rivera Attending Provider [phone] Marsha LAUGHLIN, Dr. Surinder Rivera Referring Provider Trey LAUGHLIN, Dr. Delacruz Primary Care Provider [facility], Dr. Crowley Attending Provider [facility], Dr. Crowley Referring Provider Trey LAUGHLIN, Dr. Delacruz Attending Provider Trey LAUGHLIN, Dr. Delacruz Referring Provider Campos SCOUT SNIPER-C, Emerald Attending Provider Roof SCOUT SNIPER-C, Teja H Attending Provider Roof SCOUT SNIPER-C, Teja H Referring Provider Roof SCOUT SNIPER-C, Teja H Other Provider Gil LAUGHLIN, Dr. Horton Attending Provider Marsha LAUGHLIN, Dr. Surinder Rivera Attending Provider Marsha LAUGHLIN, Dr. Surinder Rivera Referring Provider Josesito HEDRICK, Dr. Harrington Attending Provider Josesito HEDRICK, Dr. Harrington Referring Provider Trey LAUGHLIN, Dr. Delacruz Primary Care Provider [phone] Josesito HEDRICK, Dr. Harrington Attending Provider [phone] Josesito HEDRICK, Dr. Harrington Referring Provider John LAUGHLIN, Dr. Castillo Emergency Provider Juany Bellamy Referring Unavailable Josesito, Juany Attending Unavailable Yang, Jayme Primary Care Unavailable Jonathan Lopez Attending Unavailable Yang, Jayme Primary Care Unavailable Marsha, Surinder Rivera Referring Unavailable Marsha, Surinder Rivera Attending Unavailable Yang, Jayme Primary Care Unavailable Josesito, Juany Referring Unavailable Josesito, Juany Attending Unavailable Yang, Jayme Primary Care Unavailable Cushing, Usha Referring Unavailable Cushing, Usha Attending Unavailable Yang, Jayme Primary Care Unavailable Albina, Keo Referring Unavailable Albina, Keo Attending Unavailable Yang, Jayme Primary Care Unavailable Yang, Jayme Primary Care Unavailable Vellanki, Marycruz Referring Unavailable Vellanki, Marycruz Attending Unavailable Yang, Jayme Attending Unavailable Yang, Jayme Referring Unavailable Yang, Jayme Primary Care Unavailable Yang, Jayme Primary Care Unavailable Campos SCOUT SNIPER, Emerald Referring Unavailable Campos SCOUT SNIPER, Emerald Attending Unavailable Yang, Jayme Attending Unavailable Yang, Jayme Primary Care Unavailable Yang, Jayme Primary Care Unavailable Jabour, Leander Referring Unavailable Jabour, Leander Attending Unavailable Roof SCOUT SNIPER, Teja Waters Referring Unavailable Roof SCOUT SNIPER, Teja Waters Attending Unavailable Yang, Jayme Primary Care Unavailable Yang, Jayme Attending Unavailable Yang, Jayme Primary Care Unavailable Yang, Jayme Referring Unavailable Yang, Jayme Attending Unavailable Yang, Jayme Primary Care Unavailable Yang, Jayme Attending Unavailable Yang, Jayme Referring Unavailable Yang, Jayme Primary Care Unavailable Albina, Keo Attending Unavailable Yang, Jayme Primary Care Unavailable Albina, Keo Attending Unavailable Yang, Jayme Referring Unavailable Yang, Jayme Primary Care Unavailable Albina, Keo Referring Unavailable Albina, Keo Attending Unavailable Yang, Jayme Primary Care Unavailable Yang, Jayme Primary Care Unavailable Vellanki, Marycruz Referring Unavailable Vellanki, Marycruz Attending Unavailable Yang, Jayme Attending Unavailable Yang, Jayme Primary Care Unavailable Yang, Jayme Referring Unavailable Roof SCOUT SNIPER, Teja Waters Referring Unavailable Li SCOUT SNIPER, Teja Waters Consulting Unavailable Clifford Cordero Attending Unavailadriel e Trey, Jayme Primary Care Unavailable Li SCOUT SNIPER, Teja Waters Attending Unavailable Jayme Yang Referring Unavailable Trey, Jayme Primary Care Unavailable Trey, Jayme Primary Care Unavailable Trey, Jayme Referring Unavailable Suzie Ashton Attending Unavailable Evin Weaver Attending Unavailable Trey, Jayme Primary Care Unavailable Trey, Jayme Referring Unavailable Trey, Jayme Primary Care Unavailable Trey, Jayme Referring Unavailable Capmos SCOUT SNIPER, Emerald Attending Unavailable Trey, Jayme Referring Unavailable Campos SCOUT SNIPER, Emerald Attending Unavailable Trey, Jayme Primary Care Unavailable Allergies Allergy Classification Reported Allergen(s) Allergy Type Date of Onset Reaction(s) Facility (20 sources) aspirin; Translations: [aspirin] drug allergy 7 Mouth Swelling [facility] Work Phone: (6 sources) morphine drug allergy 7 GI Problems [facility] Work Phone: (20 sources) donepezil Drug Allergy 2 Swelling [facility] (20 sources) Minoxidil Drug Allergy 2 swelling [facility] (20 sources) Morphine Drug Allergy 2 UNABLE TO URINATE [facility] (1 source) Seasonal Allergies: Uncoded Allergy to substance 3 Other [facility] (1 source) donepezil Drug Allergy 5 [facility] (1 source) Morphine Drug Allergy 5 [facility] Medications Current Medications Medication Drug Class(es) Dates Sig (Normalized) Sig (Original) Albuterol Sulfate (20 sources) beta2-Adrenergic Agonist Start: 08-09-2021 take 1 puff(s) by inhalation every six hours Albuterol Sulfate Active 2 PUFF INHALATION EVERY 6 HOURS August 09, 2021 1:34pm Start: 08-09-2021 take 1 puff(s) by in halation every six hours Albuterol Sulfate Active 2 PUFF INHALATION EVERY 6 HOURS August 09, 2021 12:00am Start: 08-07-2021 End: 08-07-2021 take 1 puff(s) by inhalation every four hours Albuterol Sulfate (Ventolin Hfa) 90 mcg/actuation HFA aerosol inhaler Discontinued 2 PUFF INHALATION Q4H August 07, 2021 11:48am August 07, 2021 11:54am Start: 08-07-2021 End: 08-07-2021 Start: 08-07-2021 End: 08-07-2021 Albuterol Sulfate (Ventolin Hfa) 90 mcg/actuation HFA aerosol inhaler Discontinued 2 NMA INHALATION Q4H as needed for shortness of breath or wheezing August 07, 2021 1:00am August 07, 2021 11:54am Start: 08-07-2021 End: 08-07-2021 Start: 08-07-2021 End: 08-07-2021 take 1 puff(s) by inhalation every four hours Albuterol Sulfate (Ventolin Hfa) 90 mcg/actuation HFA aerosol inhaler Discontinued 2 PUFF INHALATION Q4H August 07, 2021 12:00am August 07, 2021 10:54am Start: 01-22-2018 End: 06-02-2019 Start: 01-22-2018 End: 06-02-2019 take 2 puff(s) by mouth every four hours Albuterol Sulfate 18 GM HFA aerosol inhaler Discontinued 2 NMA INHALATION TWICE A DAY January 22, 2018 12:00am June 02, 2019 5:11pm inhale 2 puffs by mouth every 4 hours if needed Start: 01-22-2018 End: 06-02-2019 take 2 puff(s) by mouth every four hours Albuterol Sulfate Discontinued 2 PUFF INHALATION TWICE A DAY January 21, 2018 11:00pm June 02, 2019 4:11pm inhale 2 puffs by mouth every 4 hours if needed azithromycin 250 mg oral tablet (1 source) Macrolide Antimicrobial Start: 02-15-2025 Lhrjqrqncb-Pthwveeb-Bh rmoterol (7 sources) Corticosteroid, beta2-Adrenergic Agonist Start: 01-26-2022 Budesonide-Glycopyr- Formoterol (Breztri Aerosphere) 160-9-4.8 mcg/actuation HFA aerosol inhaler Active 2 INH INHALATION TWICE A DAY January 26, 2022 10:07am Start: 01-26-2022 Budesonide-Gly copyr-Formoterol (Breztri Aerosphere) 160-9-4.8 mcg/actuation HFA aerosol inhaler Active 2 INH INHALATION TWICE A DAY January 25, 2022 11:00pm Start: 01-26-2022 Budesonide-Gly copyr-Formoterol (Breztri Aerosphere) 160-9-4.8 mcg/actuation HFA aerosol inhaler Active 2 INH INHALATION TWICE A DAY January 26, 2022 12:00am busPIRone hydrochloride 7.5 mg oral tablet (20 sources) Start: 04-12-2021 calcium carbonate 1500 mg or al tablet (20 sources) Start: 12-11-2023 Start: 09-17-2018 End: 06-02-2019 carvedilol 25 mg oral tablet (20 sources) alpha-Adrenergic Andrey, beta-Adrenergic Andrey Start: 10-02-2022 Start: 02-20-2022 End: 04-24-2022 Start: 02-20-2022 End: 04-24-2022 Start: 01-26-2022 End: 02-20-2022 Carvedilol Discontinued 12.5 MG PO TWICE A DAY January 26, 2022 9:04am February 20, 2022 3:52pm must administer with a meal/food 0800/1700 Start: 05-25-2020 End: 02-20-2022 take [id number] tablet by mouth twice daily at mealtime Carvedilol 25 mg tablet Discontinued 25 mg PO TWICE A DAY 180 May 02, 2021 4:28pm January 26, 2022 10:10am must administer with a meal/food 0800/1700 Start: 05-25-2020 End: 02-20-2022 Start: 04-07-2020 End: 04-13-2020 dapagliflozin 5 mg oral tabl et (1 source) Sodium-Glucose Cotransporter 2 Inhibitor Start: 02-15-2025 DULoxetine 60 mg delayed release oral capsule (20 sources) Serotonin and Norepinephrine Reuptake Inhibitor Start: 09-17-2018 End: 06-02-2019 Start: 12-12-2016 take 1 tablet by iraida once daily CYMBALTA 60 MG CPEP One tablet by mouth daily DULOXETINE HCL [id number] Faye Monsalve RN esomeprazole 20 mg delayed r elease oral capsule (20 sources) Proton Pump Inhibitor Start: 12-11-2023 Start: 10-02-2022 End: 09-20-2023 Start: 12-21-2021 End: 09-06-2022 Start: 12-12-2016 take 1 tablet by iraida th once daily NEXIUM 20 MG CPDR One tablet by mouth daily ESOMEPRAZOLE MAGNESIUM [id number] Jayme Lino MD Start: 12-12-2016 take 1 tablet by iraida th once daily NEXIUM 20 MG CPDR One tablet by mouth daily ESOMEPRAZOLE MAGNESIUM [id number] Jayme Lino MD 30 actuat fluticasone furoat e 0.2 mg/actuat / vilanterol 0.025 mg/actuat dry powder inhaler (20 sources) Corticosteroid, beta2-Adrenergic Agonist Start: 04-04-2023 End: 01-22-2025 Start: 04-04-2023 End: 11-21-2023 Fluticasone Furoate-Vilanter ol (Breo Ellipta) 200-25 mcg/dose blister with device Active 1 NMA INHALATION daily November 21, 2023 11:10am after inhalation, rinse mouth with water and spit out; do not swallow Start: 04-04-2023 End: 11-21-2023 Start: 04-04-2023 Fluticasone Fu roate-Vilanterol (Breo Ellipta) 200-25 mcg/dose blister with device Active 1 INH INHALATION daily April 03, 2023 11:00pm after inhalation, rinse mouth with water and spit out; do not swallow furosemide 40 mg oral tablet (20 sources) Loop Diuretic Start: 04-06-2024 Start: 10-04-2022 End: 05-24-2023 Start: 09-06-2021 End: 07-04-2022 Start: 08-09-2021 End: 09-06-2021 Start: 08-09-2021 End: 09-06-2021 Furosemide 40 mg tablet Disc ontinued 20 mg PO DAILY August 09, 2021 1:00am September 06, 2021 10:25am Start: 08-09-2021 End: 09-06-2021 Start: 12-27-2020 End: 08-07-2021 Furosemide 40 mg tablet Disc ontinued 20 mg PO DAILY 90 December 27, 2020 4:25pm August 07, 2021 11:35am Start: 03-27-2020 End: 08-07-2021 Start: 03-27-2020 End: 08-07-2021 gabapentin 600 mg oral table t (20 sources) Anti-epileptic Agent Start: 07-20-2013 End: 01-26-2022 Start: 07-20-2013 End: 01-26-2022 Gabapentin 600 mg tablet Dis continued 600 mg PO TWICE A DAY 0 December 23, 2021 11:30am January 26, 2022 10:10am take half a tablet (300mg) twice daily. Dose reduced o/a of myclonic jerks Start: 07-20-2013 End: 01-26-2022 Start: 07-20-2013 End: 01-26-2022 12 hr guaiFENesin 1200 mg extended release oral tablet (20 sources) Start: 09-05-2023 End: 11-19-2023 take 1 tablet by mouth twice daily as needed, then take 1 tablet by mouth every twelve hours as needed Guaifenesin (Mucus Relief Er) 1,200 mg tablet extended release 12hr Active 1200 mg PO TWICE A DAY as needed November 19, 2023 9:54am Start: 09-25-2018 End: 05-28-2019 Infliximab (Remicade) 100 mg recon soln (20 sources) Start: 05-24-2023 Infliximab (Re micade) 100 mg recon soln Active 100 mg IV .Q7W May 24, 2023 10:30am Start: 05-24-2023 Infliximab (Re micade) 100 mg recon soln Active 100 MG IV .Q7W May 24, 2023 9:30am Start: 05-24-2023 Infliximab (Re micade) 100 mg recon soln Active 100 MG IV .Q7W May 24, 2023 10:30am Start: 03-21-2023 End: 05-24-2023 take 100 mg intravenously every week Infliximab (Remicade) 100 mg recon soln Discontinued 100 mg IV Q7D March 21, 2023 12:00am May 24, 2023 10:31am Start: 03-21-2023 End: 05-24-2023 take 100 mg intravenously every week Infliximab (Remicade) 100 mg recon soln Discontinued 100 MG IV Q7D March 20, 2023 11:00pm May 24, 2023 9:31am Start: 03-21-2023 End: 05-24-2023 take 100 mg intravenously every week Infliximab (Remicade) 100 mg recon soln Discontinued 100 MG IV Q7D March 21, 2023 12:00am May 24, 2023 10:31am Start: 03-21-2023 take 100 mg intraven ously every week Infliximab (Remicade) 100 mg recon soln Active 100 MG IV Q7D March 21, 2023 12:00am latanoprost 0.05 mg/ml ophth almic solution (20 sources) Prostaglandin Analog Start: 12-22-2021 levothyroxine sodium 0.025 m g oral tablet (4 sources) l-Thyroxine Start: 06-26-2024 linaclotide 0.145 mg oral ca psule (4 sources) Guanylate Cyclase-C Agonist Start: 06-26-2024 loratadine 10 mg oral tablet (20 sources) Start: 12-11-2023 Start: 10-02-2022 End: 09-20-2023 Start: 12-12-2016 End: 09-26-2021 losartan potassium 50 mg ora l tablet (20 sources) Angiotensin 2 Receptor Andrey Start: 02-15-2025 Start: 10-02-2022 End: 02-15-2025 Start: 10-02-2022 End: 11-27-2024 take 1 tablet by mouth once daily Losartan 100 mg tablet Discontinued 100 mg PO DAILY October 02, 2022 1:00am November 27, 2024 9:32am Start: 01-26-2022 End: 04-24-2022 Start: 01-26-2022 End: 04-24-2022 minoxidil 2.5 mg oral tablet (20 sources) Arteriolar Vasodilator Start: 04-06-2024 Start: 10-21-2020 End: 11-18-2020 Start: 10-21-2020 End: 11-18-2020 take 1 tablet by mouth once daily Minoxidil 2.5 mg tablet Discontinued 0 .ROUTE .COMPLEX 90 November 08, 2020 9:59am November 18, 2020 10:55am Take 1 tablet by mouth once daily Rtqmpzpn-Bnq-Kb-Lycopen-Lute in (10 sources) Start: 09-17-2018 Frulfcdy-Mrp-Rp-Lycopen-Lute in Active 1 EACH PO DAILY September 17, 2018 10:18pm Start: 09-17-2018 Eakelxie-Fvw-P b-Svrerhb-Mvqzxh Active 1 EACH PO DAILY September 17, 2018 12:00am Start: 09-17-2018 Vhibdrkz-Jwg-V n-Mhygbej-Dvzyrq Active 1 EACH PO DAILY September 17, 2018 1:00am Vsitiwig-Hek-Js-Lycopen-Lute in (Centrum Silver Men) 1 EACH tablet (4 sources) Start: 09-17-2018 take 1 tablet by mouth once daily Adkpxuxm-Nyk-Bh-Lycopen-Lutein (Centrum Silver Men) 1 EACH tablet Active 1 EACH PO DAILY September 17, 2018 1:00am Start: 09-17-2018 take 1 tablet by iraida once daily Tpjfqvpd-Vli-Bf-Lycopen-Lutein (Centrum Silver Men) 1 EACH tablet Active 1 EACH PO DAILY September 17, 2018 12:00am Multivitamin tablet (1 source) Start: 12-11-2023 Multivitamin t ablet Active 1 {tbl} PO DAILY December 11, 2023 12:00am nystatin [id number] unt/ml oral suspension (4 sources) Polyene Antifungal Start: 11-17-2024 Start: 11-17-2024 Nystatin 100,0 00 unit/mL suspension Active 5 mL MUCOUS MEM THREE TIMES A DAY November 17, 2024 1:00am swish and swallow 5 cc three times per day for 10 days [place]-3 Fatty Acids (Fish Oil Concentrate) 1,000 mg Capsule (1 source) Start: 10-04-2022 take 1 capsule by mouth twice daily [place]-3 Fatty Acids (Fish Oil Concentrate) 1,000 mg Capsule Active 1000 MG PO TWICE A DAY October 04, 2022 12:00am [place]-3 Fatty Acids-Vitamin E (11 sources) Start: 03-22-2023 take 1 capsule by mouth once daily [place]-3 Fatty Acids-Vitamin E Active 1 CAP PO DAILY March 21, 2023 11:00pm Start: 03-22-2023 take 1 capsule by mo [facility] twice daily [place]-3 Fatty Acids-Vitamin E Active 1 CAP PO TWICE A DAY March 21, 2023 11:00pm Start: 03-22-2023 [place]-3 Fatty Acids-Vitamin E Active CAP PO March 22, 2023 12:00am 24 hr oxybutynin chloride 10 mg extended release oral tablet (20 sources) Cholinergic Muscarinic Antagonist Start: 10-04-2022 Start: 10-04-2022 take 10 mg by mouth every other day Oxybutynin Chloride Active 10 MG PO EVERY OTHER DAY October 04, 2022 12:00am Start: 01-26-2022 take 10 mg by mouth once daily Oxybutynin Chloride Active 10 MG PO DAILY January 25, 2022 11:00pm rosuvastatin calcium 20 mg oral tablet (20 sources) HMG-CoA Reductase Inhibitor Start: 02-03-2024 End: 06-26-2024 take 10 mg by mouth once daily Rosuvastatin 20 mg tablet Discontinued 10 mg PO DAILY April 30, 2024 9:32am June 26, 2024 11:07am Start: 10-22-2022 End: 12-11-2023 take 10 mg by mouth once daily Rosuvastatin 20 mg tabl et Discontinued 10 mg PO DAILY March 21, 2023 10:23pm December 11, 2023 9:30am Start: 08-10-2020 End: 07-29-2024 Start: 08-10-2020 End: 07-29-2024 Start: 06-02-2019 End: 07-13-2020 Semaglutide (4 sources) Start: 04-06-2024 Semaglutide (O zempic) 0.25 mg or 0.5 mg (2 mg/3 mL) pen injector Active 0.25 mg SC EVERY WEEK April 06, 2024 12:00am for 4 weeks Start: 04-06-2024 Timolol Maleate (20 sources) beta-Adrenergic Andrey Start: 10-04-2022 Timolo l Maleate 0.5 % drops Active 1 NMA LEFT EYE DAILY October 04, 2022 1:00am Start: 10-04-2022 Timolol Maleat e Active 1 DRP LEFT EYE DAILY October 04, 2022 1:00am Start: 10-04-2022 Start: 10-04-2022 Timolol Maleat e Active 1 DRP LEFT EYE DAILY October 04, 2022 12:00am Start: 12-22-2021 Timolol Active 1 DRP LEFT EYE DAILY December 21, 2021 11:00pm Completed/Discontinued Medications Medication Drug Class(es) Dates Sig (Normalized) Sig (Original) acetaminophen 325 mg oral tablet (20 sources) Start: 09-25-2018 End: 05-28-2019 Start: 09-25-2018 End: 05-28-2019 albuterol 0.833 mg/ml / ipratropium bromide 0.167 mg/ml inhalation solution (20 sources) Anticholinergic, beta2-Adrenergic Agonist Start: 09-17-2018 End: 05-28-2019 Start: 09-17-2018 End: 05-28-2019 take 1 mL by inhalation every four hours as needed for wheezing Ipratropium-Albuterol 3 ML solution for nebulization Discontinued 3 mL INHALATION EVERY 4 HOURS NEEDED as needed for Sob &/Or Wheezing September 17, 2018 1:00am May 28, 2019 9:25am Start: 09-17-2018 End: 05-28-2019 Start: 09-17-2018 End: 05-28-2019 take 1 mL by inhalation every four hours as needed Ipratropium-Albuterol Discontinued 3 ML INHALATION EVERY 4 HOURS NEEDED September 17, 2018 12:00am May 28, 2019 8:25am amiodarone hydrochloride 200 mg oral tablet (20 sources) Antiarrhythmic Start: 12-21-2021 End: 12-23-2024 Start: 12-21-2021 End: 08-28-2023 Amiodarone 200 mg tablet Discontinued 100 mg PO DAILY October 02, 2022 3:31pm August 28, 2023 10:21am Start: 12-21-2021 End: 12-23-2024 Start: 08-25-2021 End: 09-26-2021 Start: 04-18-2020 End: 02-08-2021 Amiodarone 200 mg tablet Discontinued 100 mg PO DAILY May 25, 2020 9:09am February 08, 2021 5:28pm AM Start: 09-25-2018 End: 02-08-2021 Start: 09-25-2018 End: 04-18-2020 take 1 tablet by mouth once daily Amiodarone 200 MG tablet Discontinued 200 mg PO DAILY March 24, 2020 6:14am April 18, 2020 3:46pm Start: 09-25-2018 End: 02-08-2021 amLODIPine 10 mg oral tablet (20 sources) Dihydropyridine Calcium Channel Andrey Start: 04-26-2023 End: 09-20-2023 Start: 03-26-2023 End: 11-27-2024 Start: 03-26-2023 End: 04-26-2023 take 1 tablet by mouth once daily Amlodipine 10 mg tablet Discontinued 10 mg PO DAILY April 23, 2023 11:18am April 26, 2023 1:07pm Start: 03-26-2023 End: 11-27-2024 Start: 03-26-2023 End: 05-08-2023 Start: 12-13-2021 End: 03-26-2023 Start: 11-25-2020 End: 12-13-2021 Start: 11-25-2020 End: 12-13-2021 take 1 tablet by mouth once daily Amlodipine 10 mg tablet Discontinued 10 mg PO DAILY May 23, 2021 4:55pm September 26, 2021 10:39am Start: 11-25-2020 End: 12-13-2021 Start: 04-18-2020 End: 05-25-2020 Start: 04-18-2020 End: 05-25-2020 take 1 tablet by mouth once daily Amlodipine 10 mg tablet Discontinued 10 mg PO DAILY May 16, 2020 2:36pm May 25, 2020 9:11am Start: 04-18-2020 End: 05-25-2020 amLODIPine 10 mg / benazepri l hydrochloride 40 mg oral capsule (20 sources) Dihydropyridine Calcium Channel Andrey, Angiotensin Converting Enzyme Inhibitor Start: 05-28-2019 End: 06-02-2019 Start: 05-28-2019 End: 06-02-2019 Amlodipine-Benazepril 10-40 mg capsule Discontinued 1 NMA PO DAILY May 28, 2019 12:00am June 02, 2019 5:11pm Start: 05-28-2019 End: 06-02-2019 Start: 05-28-2019 End: 06-02-2019 take 1 capsule by mouth once daily Amlodipine-Benazepril Discontinued 1 CAP PO DAILY May 27, 2019 11:00pm June 02, 2019 4:11pm Start: 12-12-2016 take 1 tablet by iraida once daily LOTREL 10-40 MG CAPS One tablet by mouth daily AMLODIPINE BESY-BENAZEPRIL HCL [id number] Faye Monsalve RN Start: 07-20-2013 End: 09-25-2018 Start: 07-20-2013 End: 09-25-2018 take 1 capsule by mouth once daily Amlodipine-Benazepril (Lotrel) 1 CAPSULE capsule Discontinued 1 CAPSULE PO DAILY July 20, 2013 12:00am September 25, 2018 1:07pm Start: 07-20-2013 End: 09-25-2018 amoxicillin 875 mg / clavula master 125 mg oral tablet (20 sources) Penicillin-class Antibacterial Start: 09-17-2018 End: 09-25-2018 Start: 09-17-2018 End: 09-25-2018 Amoxicillin/Potassium Clav ( Amox-Clav 875-125 Mg Tablet) 1 EACH tablet Discontinued 1 {tbl} PO TWICE A DAY September 17, 2018 1:00am September 25, 2018 1:07pm Start: 09-17-2018 End: 09-25-2018 apixaban 5 mg oral tablet (20 sources) Factor Xa Inhibitor Start: 09-25-2018 End: 06-26-2024 atenolol 100 mg oral tablet (12 sources) beta-Adrenergic Andrey Start: 12-12-2016 End: 12-13-2016 take 1 tablet by mouth once daily ATENOLOL 100 MG TABS One tablet by mouth daily ATENOLOL [id number] Jayme Lino MD balsalazide disodium 750 mg oral capsule (20 sources) Aminosalicylate Start: 09-17-2018 End: 02-08-2021 Start: 12-12-2016 take 3 tablets by mo [facility] twice daily BALSALAZIDE DISODIUM 750 MG CAPS Three tablets by mouth twice a day BALSALAZIDE DISODIUM [id number] Faye Monsalve RN benzonatate 100 mg oral caps ule (20 sources) Non-narcotic Antitussive Start: 09-25-2018 End: 05-28-2019 calcium carbonate 1500 mg / cholecalciferol 200 unt oral tablet (20 sources) Vitamin D Start: 12-21-2021 End: 09-20-2023 Start: 12-21-2021 End: 09-20-2023 Calcium Carbonate-Vitamin D3 600 mg-5 mcg (200 unit) Tablet Discontinued 1 {tbl} PO DAILY December 21, 2021 12:00am September 20, 2023 3:55pm Start: 12-21-2021 End: 09-20-2023 Start: 12-21-2021 take 1 tablet by iraida th once daily Calcium Carbonate-Vitamin D3 Active 1 TABLET PO DAILY December 20, 2021 11:00pm calcium carbonate / vitamin D (6 sources) Start: 12-12-2016 take 1 tablet by mouth every twenty-four hours CALCIUM + D 600-200 MG-UNIT TABS One tablet by mouth daily CALCIUM CARBONATE-VITAMIN D Faye Monsalve RN cetirizine hydrochloride 10 mg oral tablet (12 sources) Histamine-1 Receptor Antagonist Start: 12-12-2016 End: 12-13-2016 take 1 tablet by mouth once daily CETIRIZINE HCL 10 MG TABS One tablet by mouth daily CETIRIZINE HCL [id number] Jayme Lino MD chlorthalidone 50 mg oral tablet (20 sources) Thiazide-like Diuretic Start: 12-12-2016 End: 10-23-2018 cholecalciferol 0.025 mg oral capsule (20 sources) Vitamin D Start: 10-02-2022 End: 09-20-2023 ciclopirox 80 mg/ml topical solution (20 sources) Start: 01-26-2022 End: 08-13-2022 ciprofloxacin 500 mg oral tablet (20 sources) Quinolone Antimicrobial Start: 03-26-2023 End: 04-04-2023 Start: 03-25-2020 End: 04-07-2020 cloNIDine hydrochloride 0.1 mg oral tablet (20 sources) Central alpha-2 Adrenergic Agonist Start: 12-15-2020 End: 02-08-2021 Start: 07-11-2020 End: 08-10-2020 Start: 05-12-2020 End: 05-25-2020 take 0.05 mg by mouth twice daily Clonidine Hcl 0.1 mg tablet Discontinued 0.05 mg PO TWICE A DAY 60 May 12, 2020 4:28pm May 25, 2020 8:56am Start: 05-12-2020 End: 05-25-2020 take 0.05 mg by mouth twice daily Clonidine Hcl Discontinued 0.05 MG PO TWICE A DAY 60 May 12, 2020 3:28pm May 25, 2020 7:56am Start: 04-13-2020 End: 05-25-2020 Start: 04-13-2020 End: 05-12-2020 take 1 tablet by mouth twice daily Clonidine Hcl 0.1 mg tablet Discontinued 0.1 mg PO TWICE A DAY 60 April 13, 2020 12:00am May 12, 2020 4:28pm Start: 12-24-2019 End: 04-13-2020 Start: 01-22-2018 End: 12-24-2019 Start: 01-22-2018 End: 12-24-2019 take 1 tablet by mouth twice daily Clonidine Hcl 0.2 mg tablet Discontinued 0.2 mg PO TWICE A DAY December 24, 2019 1:20pm December 24, 2019 1:49pm 0.2 mg PO BID: if systolic >180 may take TID; clopidogrel 75 mg oral tablet (18 sources) P2Y12 Platelet Inhibitor Start: 11-13-2023 End: 06-26-2024 cromolyn sodium 40 mg/ml ophthalmic solution (6 sources) Mast Cell Stabilizer Start: 12-12-2016 CROMOLYN SODIUM 4 % SOLN as needed CROMOLYN SODIUM [id number] Faye Monsalve RN cyclobenzaprine hydrochloride 5 mg oral tablet (12 sources) Muscle Relaxant Start: 12-12-2016 End: 12-13-2016 take 1 tablet by mouth once daily at bedtime CYCLOBENZAPRINE HCL 5 MG TABS One tablet by mouth daily @ bedtime CYCLOBENZAPRINE HCL [id number] Jayme Lino MD dexamethasone 6 mg oral tablet (13 sources) Corticosteroid Start: 09-05-2023 End: 09-20-2023 24 hr dilTIAZem hydrochloride 360 mg extended release oral capsule (20 sources) Calcium Channel Andrey Start: 06-06-2020 End: 02-08-2021 Start: 04-18-2020 End: 04-18-2020 Start: 10-06-2019 End: 04-07-2020 Start: 06-02-2019 End: 10-06-2019 Start: 10-23-2018 End: 05-28-2019 Start: 09-25-2018 End: 10-23-2018 diphenhydrAMINE hydrochloride 25 mg oral capsule (20 sources) Histamine-1 Receptor Antagonist Start: 06-24-2019 End: 09-26-2021 [place] 7-Fyb-Qhv-Fish Oil (6 sources) Start: 12-11-2023 End: 06-26-2024 [place] 2-Ucb-Lfe-Fish Oil (Fish Oil) 300-1,000 mg capsule Discontinued 1 NMA PO DAILY December 11, 2023 12:00am June 26, 2024 11:07am Start: 12-11-2023 End: 06-26-2024 Start: 12-11-2023 doxazosin 4 mg oral tablet (20 sources) alpha-Adrenergic Andrey Start: 09-06-2022 End: 08-31-2024 Start: 09-06-2022 End: 09-19-2022 take 1 tablet by mouth once daily Doxazosin 4 mg tablet Discontinued 4 mg PO DAILY September 06, 2022 4:38pm September 19, 2022 9:50am Start: 09-06-2022 End: 09-06-2022 take 1 mg by mouth at bedtime Doxazosin Discontinued 1 MG PO AT BEDTIME September 06, 2022 2:59pm September 06, 2022 3:12pm Start: 08-14-2022 End: 09-06-2022 Start: 07-17-2022 End: 08-14-2022 doxycycline hyclate 100 mg o ral tablet (20 sources) Tetracycline-class Drug Start: 09-05-2023 End: 09-20-2023 Start: 10-02-2022 End: 02-07-2023 Start: 12-21-2021 End: 12-23-2021 Start: 01-24-2018 End: 05-31-2018 finasteride 5 mg oral tablet (20 sources) 5-alpha Reductase Inhibitor Start: 03-14-2015 End: 06-02-2019 fish oil (6 sources) Start: 12-12-2016 take 1 tablet by mouth twice daily FISH OIL CAPS One tablet by mouth twice daily [place]-3 FATTY ACIDS CAPS [id number] Faye Monsalve RN glimepiride 2 mg oral tablet (20 sources) Sulfonylurea Start: 01-22-2018 End: 06-26-2024 glycerin 330 mg/ml / phenol 15 mg/ml mucosal spray (20 sources) Non-Standardized Chemical Allergen Start: 06-24-2020 End: 09-26-2021 Start: 06-24-2020 End: 09-26-2021 Phenol-Glycerin 30 ML spray, non-aerosol Discontinued 30 mL MM EVERY 2 HOURS NEEDED as needed for Sore Throat 1 June 24, 2020 2:13pm September 26, 2021 10:20am homatropine methylbromide 0. 3 mg/ml / HYDROcodone bitartrate 1 mg/ml oral solution (20 sources) Opioid Agonist, Cholinergic Muscarinic Agonist Start: 09-25-2018 End: 05-28-2019 Start: 09-25-2018 End: 05-28-2019 hydrALAZINE hydrochloride 100 mg oral tablet (20 sources) Arteriolar Vasodilator Start: 04-24-2022 End: 04-24-2022 take 1 tablet by mouth once Hydralazine 100 mg tablet Discontinued 100 mg PO ONCE April 24, 2022 1:53pm April 24, 2022 2:06pm Start: 12-03-2019 End: 06-02-2024 Start: 12-03-2019 End: 10-04-2022 take 1 tablet by mouth twice daily Hydralazine 100 mg tablet Discontinued 100 mg PO TWICE A DAY 180 July 14, 2021 12:24pm December 13, 2021 10:14am Start: 12-03-2019 End: 03-29-2020 Hydralazine 100 MG tablet Discontinued 100 mg PO THREE TIMES A DAY March 24, 2020 6:14am March 29, 2020 9:37am 1-3 TIMES A DAY Start: 11-20-2019 End: 12-03-2019 Start: 11-04-2019 End: 11-20-2019 hydroCHLOROthiazide 25 mg or al tablet (20 sources) Thiazide Diuretic Start: 07-04-2022 End: 10-05-2022 Start: 02-08-2020 End: 03-28-2020 Start: 06-17-2019 End: 12-24-2019 Start: 12-12-2016 End: 12-13-2016 take 1 tablet by mouth once daily HYDROCHLOROTHIAZIDE 25 MG TABS One tablet by mouth daily HYDROCHLOROTHIAZIDE [id number] Jayme Lino MD inFLIXimab 100 mg injection (6 sources) Tumor Necrosis Factor Andrey Start: 12-12-2016 take 100 mg intravenous route every two months REMICADE 100 MG SOLR IV every 2 months INFLIXIMAB [id number] Faye Monsalve RN ipratropium bromide 0.021 mg/actuat metered dose nasal spray (20 sources) Anticholinergic Start: 05-21-2023 End: 09-04-2023 Start: 05-21-2023 End: 09-04-2023 Ipratropium [place] 21 mcg ( 0.03 %) spray,non-aerosol Discontinued 2 NMA INTRANASAL TWICE A DAY May 21, 2023 12:00am September 04, 2023 2:52am administer into each nostril Start: 05-21-2023 End: 09-04-2023 take 1 spray(s) nasal route twice daily Ipratropium [place] Discontinued 2 SPRAY INTRANASAL TWICE A DAY May 20, 2023 11:00pm September 04, 2023 1:52am administer into each nostril Start: 01-26-2022 Ipratropium Br omide Active 2 SPRAY INTRANASAL THREE TIMES A DAY January 25, 2022 11:00pm 24 hr isosorbide mononitrate 60 mg extended release oral tablet (20 sources) Nitrate Vasodilator Start: 02-11-2020 End: 08-03-2024 Start: 02-11-2020 End: 05-25-2020 take 1 tablet by mouth once daily, then take 1 tablet by mouth every twenty-four hours Isosorbide Mononitrate 60 MG tablet extended release 24 hr Discontinued 60 mg PO DAILY March 24, 2020 6:14am May 25, 2020 8:56am Start: 10-20-2019 End: 11-20-2019 Start: 10-20-2019 End: 11-20-2019 take 1 tablet by mouth twice daily, then take 1 tablet by mouth every twenty-four hours Isosorbide Mononitrate 30 mg tablet extended release 24 hr Discontinued 30 mg PO TWICE A DAY October 27, 2019 5:15pm November 20, 2019 3:37pm On Hold: med changes may consider resuming levoFLOXacin 750 mg oral tab let (20 sources) Quinolone Antimicrobial Start: 09-24-2023 End: 11-13-2023 Start: 04-12-2021 End: 08-07-2021 Start: 01-22-2018 End: 01-24-2018 lisinopril 30 mg oral tablet (20 sources) Angiotensin Converting Enzyme Inhibitor Start: 02-08-2021 End: 01-26-2022 Start: 06-02-2019 End: 02-08-2021 Start: 09-25-2018 End: 05-28-2019 metFORMIN hydrochloride 1000 mg oral tablet (20 sources) Biguanide Start: 07-11-2020 End: 02-08-2021 Start: 06-02-2019 End: 10-06-2019 take 1 tablet by mouth once daily Metformin 1,000 mg tablet Discontinued 1000 mg PO DAILY June 02, 2019 5:06pm October 06, 2019 4:19pm Start: 09-17-2018 End: 06-08-2020 Start: 12-12-2016 take 1 tablet by iraida twice daily METFORMIN HCL 1000 MG TABS One tablet by mouth twice daily METFORMIN HCL [id number] Faye Monsalve RN metoclopramide 10 mg oral ta blet (20 sources) Dopamine-2 Receptor Antagonist Start: 06-24-2019 End: 10-06-2019 metoprolol tartrate 50 mg or al tablet (20 sources) beta-Adrenergic Andrey Start: 05-28-2019 End: 06-02-2019 Start: 01-22-2018 End: 09-25-2018 Start: 03-22-2017 METOPROLOL TAR TRATE 50 MG TABS One pill twice a day METOPROLOL TARTRATE [id number] Teja Jefferson [employer] montelukast 10 mg oral tablet (20 sources) Leukotriene Receptor Antagonist Start: 04-04-2023 End: 12-21-2024 MULTIPLE VITAMINS-MINERALS (4 sources) Start: 12-12-2016 take 1 tablet by mouth once daily SENTRY SENIOR TABS One tablet by mouth daily MULTIPLE VITAMINS-MINERALS [id number] Faye Monsalve RN MULTIPLE VITAMINS-MINERALS (2 sources) Start: 12-12-2016 take 1 tablet by mouth once daily SENTRY SENIOR TABS One tablet by mouth daily MULTIPLE VITAMINS-MINERALS [id number] Faye Monsalve RN Si-Xft-Yidjf-K1-Ly copen-Lutein (Centrum Silver Men) 1 EACH tablet (12 sources) Start: 09-17-2018 End: 09-20-2023 take 1 tablet by mouth once daily Kp-Jdq-Jhhko-K1-Lyc open-Lutein (Centrum Silver Men) 1 EACH tablet Discontinued 1 NMA PO DAILY September 17, 2018 1:00am September 20, 2023 3:57pm Start: 09-17-2018 take 1 tablet by iraida th once daily Cu-Mtx-Vdjnl-C0-Lmmmdcn-Rmehwr (Centrum Silver Men) 1 EACH tablet Active 1 EACH PO DAILY September 17, 2018 12:00am Start: 09-17-2018 take 1 tablet by iraida th once daily Uy-Uty-Hauzz-Y5-Zeothzz-Xqtdsh (Centrum Silver Men) 1 EACH tablet Active 1 EACH PO DAILY September 17, 2018 1:00am nebivolol 10 mg oral tablet (8 sources) Start: 12-12-2016 End: 03-22-2017 take 1 tablet by mouth once daily BYSTOLIC 10 MG TABS One tablet by mouth daily NEBIVOLOL HCL [id number] Teja Jefferson NP [place]-3 Fatty Acids (20 sources) Start: 10-04-2022 End: 04-04-2023 take 1000 mg by mouth twice daily [place]-3 Fatty Acids Discontinued 1000 MG PO TWICE A DAY October 04, 2022 12:00am April 04, 2023 7:12am Start: 10-04-2022 End: 04-04-2023 take 1000 mg by mouth twice daily [place]-3 Fatty Acids Discontinued 1000 MG PO TWICE A DAY October 04, 2022 1:00am April 04, 2023 8:12am Start: 10-04-2022 take 1000 mg by mout h twice daily [place]-3 Fatty Acids Active 1000 MG PO TWICE A DAY October 04, 2022 1:00am Start: 10-04-2022 take 1000 mg by mout h twice daily [place]-3 Fatty Acids Active 1000 MG PO TWICE A DAY October 04, 2022 12:00am Start: 12-13-2021 take 1000 mg by mout h twice daily [place]-3 Fatty Acids Active 1000 MG PO TWICE A DAY December 13, 2021 9:13am Start: 12-13-2021 take 1000 mg by mout h twice daily [place]-3 Fatty Acids Active 1000 MG PO TWICE A DAY December 13, 2021 10:13am Start: 08-09-2021 End: 12-13-2021 take 1000 mg by mouth once daily [place]-3 Fatty Acids Discontinued 1000 MG PO DAILY August 09, 2021 1:34pm December 13, 2021 10:14am Start: 08-09-2021 End: 12-13-2021 take 1000 mg by mouth once daily [place]-3 Fatty Acids Discontinued 1000 MG PO DAILY August 09, 2021 12:00am December 13, 2021 9:14am Start: 08-09-2021 End: 12-13-2021 take 1000 mg by mouth once daily [place]-3 Fatty Acids Discontinued 1000 MG PO DAILY August 09, 2021 1:00am December 13, 2021 10:14am [place]-3 Fatty Acids 1,000 mg Capsule (1 source) Start: 10-04-2022 End: 04-04-2023 take 1 capsule by mouth twice daily [place]-3 Fatty Acids 1,000 mg Capsule Discontinued 1000 mg PO TWICE A DAY October 04, 2022 1:00am April 04, 2023 8:12am [place]-3 Fatty Acids Capsule (1 source) Start: 08-09-2021 End: 12-13-2021 take 1 capsule by mouth once daily [place]-3 Fatty Acids Capsule Discontinued 1000 mg PO DAILY August 09, 2021 1:00am December 13, 2021 10:14am [place]-3 Fatty Acids-Fish Oil (20 sources) Start: 09-17-2018 End: 10-23-2018 take 1000 mg by mouth once daily [place]-3 Fatty Acids-Fish Oil Discontinued 1000 MG PO DAILY September 17, 2018 10:18pm October 23, 2018 12:40pm Start: 09-17-2018 End: 10-23-2018 take 1000 mg by mouth once daily [place]-3 Fatty Acids-Fish Oil Discontinued 1000 MG PO DAILY September 17, 2018 12:00am October 23, 2018 11:40am Start: 09-17-2018 End: 10-23-2018 take 1000 mg by mouth once daily [place]-3 Fatty Acids-Fish Oil Discontinued 1000 MG PO DAILY September 17, 2018 1:00am October 23, 2018 12:40pm [place]-3 Fatty Acids-Fish Oil 1 EACH capsule (1 source) Start: 09-17-2018 End: 10-23-2018 take 1 capsule by mouth once daily [place]-3 Fatty Acids-Fish Oil 1 EACH capsule Discontinued 1000 mg PO DAILY September 17, 2018 1:00am October 23, 2018 12:40pm [place]-3 Fatty Acids-Vitamin E 1,000 mg Capsule (1 source) Start: 03-22-2023 End: 09-20-2023 [place]-3 Fatty Acids-Vitamin E 1,000 mg Capsule Discontinued 1 NMA PO DAILY March 22, 2023 12:00am September 20, 2023 3:57pm omeprazole 20 mg delayed release oral capsule (6 sources) Proton Pump Inhibitor Start: 12-12-2016 take 1 tablet by mouth once daily OMEPRAZOLE 20 MG CPDR One tablet by mouth daily OMEPRAZOLE [id number] Faye Monsalve RN phenazopyridine hydrochloride 100 mg oral tablet (8 sources) Start: 11-08-2023 End: 12-11-2023 polyethylene glycol 3350 06036 mg powder for oral solution (6 sources) Osmotic Laxative Start: 11-19-2023 End: 06-26-2024 microencapsulated potassium chloride 10 meq extended release oral tablet (20 sources) Start: 03-27-2020 End: 12-23-2024 predniSONE 20 mg oral tablet (20 sources) Start: 11-17-2024 End: 11-27-2024 Prednisone 20 mg tablet Discontinued mg PO November 17, 2024 1:00am November 27, 2024 9:32am Start: 09-24-2023 End: 11-11-2023 Start: 10-22-2022 take 10 mg by mouth at breakfa st Prednisone Active 10 MG PO WITH BREAKFAST October 22, 2022 2:21pm Start: 10-05-2022 End: 03-26-2023 Start: 10-05-2022 End: 03-26-2023 Start: 04-12-2021 End: 08-07-2021 Start: 04-12-2021 End: 08-07-2021 Start: 06-08-2020 End: 06-13-2020 Start: 06-08-2020 End: 06-13-2020 Start: 09-25-2018 End: 10-10-2018 Start: 09-17-2018 End: 09-25-2018 Start: 09-17-2018 End: 09-25-2018 Prednisone 20 MG tablet Discontinued 0 mg PO DAILY September 17, 2018 1:00am September 25, 2018 1:08pm Please contact the information source for Taper Schedule details. QUEtiapine 50 mg oral tablet (19 sources) Atypical Antipsychotic Start: 11-11-2023 End: 11-19-2023 Start: 11-11-2023 End: 11-19-2023 Quetiapine 50 mg tablet Disc ontinued 50 mg PO November 11, 2023 1:00am November 19, 2023 9:56am Start: 11-11-2023 End: 11-19-2023 Start: 09-20-2023 End: 11-19-2023 12 hr ranolazine 500 mg exte nded release oral tablet (18 sources) Anti-anginal Start: 11-13-2023 End: 06-26-2024 simvastatin 80 mg oral table t (20 sources) HMG-CoA Reductase Inhibitor Start: 09-17-2018 End: 06-02-2019 Start: 09-17-2018 End: 06-02-2019 Simvastatin 80 MG tablet Discontinued 40 mg PO AT BEDTIME September 25, 2018 1:11pm June 02, 2019 5:13pm Start: 09-17-2018 End: 06-02-2019 take 40 mg by mouth at bedtime Simvastatin Discontinue d 40 MG PO AT BEDTIME September 25, 2018 12:11pm June 02, 2019 4:13pm Start: 12-12-2016 take 1 tablet by iraida th once daily SIMVASTATIN 80 MG TABS One half tablet by mouth daily SIMVASTATIN [id number] Jayme Lino MD spacer (20 sources) Start: 08-07-2021 End: 08-07-2021 spacer Discontinued 0 .ROUTE .MEDSUPPLY August 07, 2021 11:48am August 07, 2021 11:54am As directed Start: 08-07-2021 End: 08-07-2021 spacer Discontinued 0 .ROUTE .MEDSUPPLY August 07, 2021 12:00am August 07, 2021 10:54am As directed Start: 08-07-2021 End: 08-07-2021 spacer Discontinued 0 .ROUTE .MEDSUPPLY August 07, 2021 1:00am August 07, 2021 11:54am As directed traMADol hydrochloride 50 mg oral tablet (20 sources) Opioid Agonist Start: 03-21-2023 End: 09-04-2023 triamcinolone acetonide 0.05 5 mg/actuat metered dose nasal spray (18 sources) Corticosteroid Start: 05-21-2023 End: 09-20-2023 Start: 05-21-2023 End: 09-20-2023 Triamcinolone Acetonide (Elvin acort) 55 mcg aerosol,spray Discontinued 2 NMA INTRANASAL TWICE A DAY May 21, 2023 12:00am September 20, 2023 3:58pm administer into each nostril Start: 05-21-2023 take 1 spray(s) nasa l route twice daily Triamcinolone Acetonide (Nasacort) 55 mcg aerosol,spray Active 2 SPRAY INTRANASAL TWICE A DAY May 20, 2023 11:00pm administer into each nostril (20 sources) Start: 11-17-2024 End: 11-27-2024 Start: 12-11-2023 Start: 11-19-2023 Start: 09-05-2023 End: 11-19-2023 Start: 09-05-2023 Start: 05-24-2023 Start: 03-22-2023 End: 09-20-2023 Start: 03-21-2023 End: 05-24-2023 Start: 10-04-2022 End: 04-04-2023 Start: 10-04-2022 Start: 08-09-2021 End: 12-13-2021 Start: 08-07-2021 End: 08-07-2021 Start: 09-17-2018 End: 09-20-2023 Start: 09-17-2018 Start: 09-17-2018 End: 10-23-2018 Problems Active Problems Problem Classification Problem Date Documented Date Episodic/Chronic Acute bronchitis (20 sources) Acute bronchitis with bronchospasm; Translations: [Acute bronchitis, unspecified] 12-28-2021 Episodic Acute myocardial infarction (10 sources) Myocardial infarction; Translations: [Non-ST elevation (NSTEMI) myocardial infarction] 11-12-2023 Chronic Asthma (20 sources) Asthma; Translations: [Unspecified asthma, uncomplicated] Chronic Calculus of urinary tract (20 sources) Kidney stone; Translations: [Calculus of kidney] 12-28-2021 Episodic Cancer of prostate (20 sources) Primary malignant neoplasm of prostate; Translations: [Malignant neoplasm of prostate] Onset: 12-29-2024 07-02-2023 Chronic Cardiac dysrhythmias (20 sources) Conduction disorder of the heart; Translations: [Paroxysmal atrial fibrillation] Onset: 12-13-2016 12-13-2016 Chronic Chronic obstructive pulmonary disease and bronchiectasis (1 source) Bronchitis; Translations: [Bronchitis, not specified as acute or chronic] 02-15-2025 Episodic Conduction disorders (8 sources) Sinoatrial block; 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] Onset: 12-12-2016 12-12-2016 Chronic Coronary atherosclerosis and other heart disease (20 sources) Coronary arteriosclerosis; Translations: [Atherosclerotic heart disease of [place] coronary artery without angina pectoris] Onset: 12-21-2024 Chronic Delirium, dementia, and amnestic and other cognitive disorders (20 sources) Dementia; Translations: [Unspecified dementia without behavioral disturbance] 12-22-2020 Chronic Diabetes mellitus with complications (1 source) Type 2 diabetes mellitus with diabetic chronic kidney disease; Translations: [Type 2 diabetes mellitus with diabetic chronic kidney disease] Onset: 01-11-2025 Chronic Diabetes mellitus without complication (20 sources) Diabetes mellitus; Translations: [Type 2 diabetes mellitus without complications] Onset: 12-12-2016 12-12-2016 Chronic Disorders of lipid metabolism (20 sources) Hyperlipidemia; Translations: [Hyperlipidemia, unspecified] Onset: 12-12-2016 12-12-2016 Chronic Diverticulosis and diverticulitis (20 sources) Diverticulosis of colon; Translations: [Diverticulosis of large intestine without perforation or abscess without bleeding] 12-28-2021 Chronic Essential hypertension (20 sources) Benign hypertension; Translations: [Essential hypertension] Onset: 12-12-2016 12-12-2016 Chronic Genitourinary symptoms and ill-defined conditions (8 sources) Dysuria; Translations: [Dysuria] 11-11-2023 Episodic Gout and other crystal arthropathies (20 sources) Acute gout; Translations: [Gout, unspecified] Chronic Heart valve disorders (20 sources) Aortic valve stenosis; Translations: [Nonrheumatic aortic (valve) stenosis] Chronic Comment on above: The patient's aortic stenosis sounds no more than moderate on exam. Will continue to follow him effectively. He does have some mild memory deficits. Hypertension with complications and secondary hypertension (20 sources) Hypertensive urgency ; Translations: [Hypertensive urgency] Chronic Immunizations and screening for infectious disease (20 sources) Contact with or exposure to other viral diseases; Translations: [Severe acute respiratory syndrome coronavirus 2 (SARS-CoV-2) infection ruled out] 02-09-2021 Episodic Intracranial injury (20 sources) Concussion injury of body structure; Translations: [Concussion with loss of consciousness of unspecified duration, initial encounter] 06-25-2019 Episodic Malaise and fatigue (20 sources) Fatigue; Translations: [Other fatigue] Episodic Mycoses (8 sources) Candidiasis of mouth; Translations: [Candidal stomatitis] 11-17-2024 Episodic Nausea and vomiting (12 sources) Nausea and vomiting; Translations: [Nausea with vomiting, unspecified] 11-11-2023 Episodic Noninfectious gastroenteritis (20 sources) Colitis; Translations: [Noninfective gastroenteritis and colitis, unspecified] 12-28-2021 Episodic Nonspecific chest pain (20 sources) Tight chest; Translations: [Other chest pain] 09-22-2018 Episodic Occlusion or stenosis of precerebral arteries (20 sources) Vertebral artery stenosis; Translations: [Occlusion and stenosis of unspecified vertebral artery] 02-23-2020 Chronic Osteoarthritis (20 sources) Arthritis of knee; Translations: [Unilateral primary osteoarthritis, right knee] 10-10-2022 Chronic Other aftercare (20 sources) Long-term current use of anticoagulant; Translations: [jail (current) use of anticoagulants] 10-04-2022 Episodic Other aftercare (17 sources) jail (current) use of anticoagulants; Translations: [Long-term (current) use of anticoagulants] Episodic Other aftercare (10 sources) Drug therapy finding; Translations: [Other assisted (current) drug therapy] 12-11-2023 Episodic Other aftercare (4 sources) Other assisted (current) drug therapy; Translations: [Long-term (current) use of other medications] Onset: 11-27-2024 12-11-2023 Episodic Other and ill-defined heart disease (20 sources) Left ventricular hypertrophy; Translations: [Cardiomegaly] 09-26-2021 Chronic Other and ill-defined heart disease (2 sources) Cardiomegaly; Translations: [Cardiomegaly] Chronic Other circulatory disease (20 sources) Labile hypertension due to being in a clinical environment; Translations: [Elevated blood-pressure reading, without diagnosis of hypertension] 08-07-2022 Episodic Other circulatory disease (11 sources) H/O: atrial fibrillation; Translations: [Personal history of other diseases of the circulatory system] 09-20-2023 Episodic Other circulatory disease (11 sources) Personal history of other diseases of the circulatory system; Translations: [Personal history of other diseases of circulatory system] 09-20-2023 Episodic Other circulatory disease (8 sources) H/O: heart disorder; Translations: [Personal history of other diseases of the circulatory system] 11-11-2023 Episodic Other connective tissue disease (20 sources) History of total knee arthroplasty; Translations: [Presence of unspecified artificial knee joint] 10-10-2022 Chronic Other connective tissue disease (2 sources) Presence of unspecified artificial knee joint; Translations: [Knee joint replacement] Chronic Other connective tissue disease (14 sources) Prepatellar bursitis; Translations: [Prepatellar bursitis, left knee] 10-10-2022 Episodic Other connective tissue disease (16 sources) Prepatellar bursitis of left knee; Translations: [Prepatellar bursitis, left knee] 10-10-2022 Episodic Other hereditary and degenerative nervous system conditions (20 sources) Myoclonus; Translations: [Myoclonus] 12-31-2021 Chronic Other hereditary and degenerative nervous system conditions (5 sources) Myoclonus; Translations: [Myoclonus] Chronic Other injuries and conditions due to external causes (20 sources) Closed injury of head; Translations: [Unspecified injury of head, initial encounter] 02-23-2020 Episodic Other injuries and conditions due to external causes (1 source) Unspecified injury of head, initial encounter; Translations: [Head injury, unspecified] Episodic Other lower respiratory disease (20 sources) Dyspnea; Translations: [Shortness of breath] 09-22-2018 Episodic Other lower respiratory disease (20 sources) Productive cough ; Translations: [Cough productive of purulent sputum] 09-22-2018 Episodic Other lower respiratory disease (20 sources) Rib pain; Translations: [Pleurodynia] 09-07-2022 Episodic Other lower respiratory disease (8 sources) Pleurodynia; Translations: [Chest pain, unspecified] Episodic Other lower respiratory disease (15 sources) Dyspnea on exertion; Translations: [Other forms of dyspnea] 09-04-2023 Episodic Other lower respiratory disease (15 sources) Respiratory insufficiency; Translations: [Other abnormalities of breathing] 09-04-2023 Episodic Other lower respiratory disease (10 sources) Other abnormalities of breathing; Translations: [Other pulmonary insufficiency, not elsewhere classified] 09-04-2023 Episodic Other lower respiratory disease (10 sources) Other forms of dyspnea; Translations: [Other respiratory abnormalities] 09-04-2023 Episodic Other lower respiratory disease (7 sources) Dyspnea, unspecified; Translations: [Other respiratory abnormalities] 09-20-2023 Episodic Other lower respiratory disease (1 source) Shortness of breath; Translations: [Shortness of breath] Onset: 02-18-2025 Episodic Other nervous system disorders (20 sources) Unable to walk; Translations: [Difficulty in walking, not elsewhere classified] 10-04-2022 Chronic Other nervous system disorders (6 sources) Difficulty in walking, not elsewhere classified; Translations: [Difficulty in walking] Chronic Other non-traumatic joint disorders (20 sources) Pain in wrist; Translations: [Pain in left wrist] 09-22-2018 Episodic Other non-traumatic joint disorders (20 sources) Effusion of joint of left knee; Translations: [Effusion, left knee] 10-02-2022 Episodic Other non-traumatic joint disorders (20 sources) Effusion of right knee joint; Translations: [Effusion, right knee] 10-02-2022 Episodic Other non-traumatic joint disorders (20 sources) Pain in right knee; Translations: [Arthralgia of right knee] Episodic Other non-traumatic joint disorders (20 sources) Foot joint pain; Translations: [Pain in left ankle and joints of left foot] 10-04-2022 Episodic Other non-traumatic joint disorders (6 sources) Pain in left ankle and joints of left foot; Translations: [Pain in joint, ankle and foot] Episodic Other non-traumatic joint disorders (4 sources) Effusion, right knee; Translations: [Effusion of joint, lower leg] 12-20-2022 Episodic Other nutritional; endocrine; and metabolic disorders (6 sources) Body mass index (BMI) 34.0-34.9, adult; Translations: [Body mass index (BMI) 34.0-34.9, adult] Onset: 12-13-2016 12-13-2016 Chronic Other nutritional; endocrine; and metabolic disorders (11 sources) H/O: diabetes mellitus; Translations: [Personal history of other endocrine, nutritional and metabolic disease] 09-20-2023 Episodic Other nutritional; endocrine; and metabolic disorders (7 sources) Personal history of other endocrine, nutritional and metabolic disease; Translations: [Personal history of other endocrine, metabolic, and immunity disorders] 09-20-2023 Episodic Other screening for suspected conditions (not mental disorders or infectious disease) (20 sources) Cardiovascular stress test abnormal; Translations: [Abnormal result of other cardiovascular function study] Episodic Other upper respiratory disease (20 sources) Nasal sinus problem; Translations: [Other specified disorders of nose and nasal sinuses] 04-04-2023 Episodic Other upper respiratory disease (5 sources) Other specified disorders of nose and nasal sinuses; Translations: [Other disease of nasal cavity and sinuses] 04-04-2023 Episodic Dina-; endo-; and myocarditis; cardiomyopathy (except that caused by tuberculosis or sexually transmitted disease) (20 sources) Secondary aortitis; Translations: [Acute rheumatic endocarditis] 10-10-2018 Episodic Pulmonary heart disease (20 sources) Pulmonary hypertension; Translations: [Pulmonary hypertension, unspecified] Chronic Comment on above: RVSP 40 mmHg Residual codes; unclassified (20 sources) Obstructive sleep apnea (adult) (pediatric); Translations: [Obstructive sleep apnea (adult)(pediatric)] Onset: 03-16-2024 Chronic Residual codes; unclassified (20 sources) Altered mental status; Translations: [Altered mental status, unspecified] 02-23-2020 Episodic Residual codes; unclassified (20 sources) Other specified health status; Translations: [Failure of outpatient treatment] Episodic Residual codes; unclassified (5 sources) Other specified postprocedural states; Translations: [Personal history of surgery to heart and great vessels, presenting hazards to health] Onset: 11-28-2021 11-13-2023 Episodic Rheumatoid arthritis and related disease (2 sources) Rheumatoid arthritis without rheumatoid factor, multiple sites; Translations: [Rheumatoid arthritis without rheumatoid factor, unspecified site] Onset: 03-25-2024 Chronic Septicemia (except in labor) (20 sources) Sepsis; Translations: [Sepsis, unspecified organism] 12-28-2021 Episodic Sprains and strains (20 sources) Shoulder strain; Translations: [Strain of unspecified muscle, fascia and tendon at shoulder and upper arm level, right arm, initial encounter] 06-25-2019 Episodic Superficial injury; contusion (20 sources) Contusion of shoulder region; Translations: [Contusion of unspecified shoulder, initial encounter] Episodic Syncope (20 sources) Syncope; Translations: [Syncope and collapse] Onset: 12-12-2016 12-12-2016 Episodic Thyroid disorders (1 source) Hypothyroidism, unspecified; Translations: [Hypothyroidism, unspecified] Onset: 06-26-2024 Chronic Unclassified (20 sources) Obstructive sleep apnea syndrome; Translations: [Obstructive sleep apnea (adult) (pediatric)] Onset: 12-12-2016 12-12-2016 Chronic Comment on above: Bipap 14/[address] Viral infection (20 sources) Disease caused by 2019-nCoV; Translations: [COVID-19] 09-04-2023 Episodic Past or Other Problems Problem Classification Problem Date Documented Date Episodic/Chronic Deficiency and other anemia (1 source) Anemia, unspecified; Translations: [Anemia, unspecified] Onset: 08-31-2024 Episodic Deficiency and other anemia (1 source) Iron deficiency anemia, unspecified; Translations: [Iron deficiency anemia, unspecified] Onset: 07-15-2024 Episodic Fluid and electrolyte disorders (20 sources) Hypokalemia; Translations: [Hypokalemia] Onset: 12-12-2016 12-12-2016 Episodic Other connective tissue disease (1 source) Other specified soft tissue disorders; Translations: [Other specified soft tissue disorders] Onset: 05-15-2024 Episodic Pneumonia (except that caused by tuberculosis or sexually transmitted disease) (20 sources) Pneumonia; Translations: [Pneumonia, unspecified organism] Onset: 11-10-2024 03-21-2023 Episodic Residual codes; unclassified (20 sources) History of cardiac catheterization; Translations: [Other specified postprocedural states] Onset: 11-28-2021 01-26-2022 Episodic Comment on above: Left main Short, michael cified, bifurcating into LAD and the left circumflex; Angiographically there is no obstructive atherosclerosis of the left main coronary artery; LAD, ostial proximal 50-60%, calcified with extension of calcification to the mid LAD, rest of the LAD including mid and distal LAD normal angiographically; Left circumflex calcified proximally had around 50% stenosis, ostial high OM1 around 60 to 70% stenosis; RCA proximally had eccentric around 70% with the mid RCA occluded, [employer] Unclassified (6 sources) Family history of alcoholism; Translations: [Family history of alcohol abuse and dependence] 12-12-2016 Episodic Results Test Name Value Interpretation Reference Range Facility Absolute lymphocyte countOrd ered By: Jonathan Lopez on 02-15-2025 Lymphocytes Auto (Unsp spec) [#/Vol] 1.69 10*3/uL 0.83-4.51 [facility] Anion gap in Serum or Plasma Ordered By: Jonathan Lopez on 02-15-2025 Anion gap [Moles/Vol] 12 mmol/L 5-15 [facility] Automated lymphocyte count a s percentage of total leukocytesOrdered By: Jonathan Lopez on 02-15-2025 Lymphocytes/100 WBC Auto (Unsp spec) 22.7 % 19-41 [facility] BUN/creatinine ratioOrdered By: Jonathan Lopez on 02-15-2025 Urea nitrogen/Creatinine [Mass ratio] 13.5 mg/mg 10-20 [facility] Basophil percentageOrdered B y: Jonathan Lopez on 02-15-2025 Basophils/100 WBC (Bld) 0.3 % 0-1 [facility] Carbon dioxide, total [Moles /volume] in Central venous bloodOrdered By: Jonathan Lopez on 02-15-2025 CO2 [Moles/Vol] 23.1 mmol/L 21.0-32.0 [facility] Chloride assayOrdered By: Rodger Lopez on 02-15-2025 Chloride [Moles/Vol] 102 mmol/L 98-108 [facility] Eosinophil percentageOrdered By: Joanthan Lopez on 02-15-2025 Eosinophils/100 WBC (Bld) 0.8 % 0-5 [facility] Erythrocyte distribution wid th ratioOrdered By: Jonathan Lopez on 02-15-2025 Erythrocyte distribution width (RBC) [Ratio] 14.1 % 11.6-14.6 [facility] Erythrocyte distribution wid th standard deviationOrdered By: Jonathan Lopez on 02-15-2025 Erythrocyte distribution width (RBC) [Ratio] 47.8 fl High 35.1-43.9 [facility] Glomerular filtration rate ( GFR) estimation/1.73 sq m using serum, plasma, or whole bOrdered By: Jonathan Lopez on 02-15-2025 GFR/1.73 sq M.predicted among non-blacks MDRD (S/P/Bld) [Vol rate/Area] 41 mL/min/{1.73_m2} Low >60 [facility] Hematocrit Auto (Bld) [Volum e fraction]Ordered By: Jonathan Lopez on 02-15-2025 Hematocrit (Bld) [Volume fraction] 29.3 % Low 40-54 [facility] Hemoglobin measurementOrdere d By: Jonathan Lopez on 02-15-2025 Hemoglobin (Bld) [Mass/Vol] 9.9 g/dL Low 13.0-16.5 [facility] Immature granulocytes/100 WB C Auto (Bld)Ordered By: Jonathan Lopez on 02-15-2025 Immature granulocytes/100 WBC (Bld) 0.300 % 0.0-0.9 [facility] Influenza virus A and B and SARS-CoV-2 (COVID-19) and Respiratory syncytial virus RNAOrdered By: Jonathan Lopez on 02-15-2025 SARS-CoV-2 (COVID-19) RNA IRINA+probe Ql (Unsp spec) [facility] MCV (mean corpuscular volume ) determinationOrdered By: Jonathan Lopez on 02-15-2025 MCV (RBC) [Entitic vol] 92.1 fL 80-94 [facility] Mean corpuscular hemoglobin (MCH) determinationOrdered By: Jonathan Lopez on 02-15-2025 MCH (RBC) [Entitic mass] 31.1 pg 27.0-32.0 [facility] Monocyte percentageOrdered B y: Jonathan Lopez on 02-15-2025 Monocytes/100 WBC (Bld) 10.9 % High 0-10 [facility] Neutrophil percentageOrdered By: Jonathan Lopez on 02-15-2025 Neutrophils/100 WBC (Bld) 65.0 % 47-70 [facility] Platelet countOrdered By: Rodger Lopez on 02-15-2025 Platelets (Bld) [#/Vol] 185 10*3/uL 150-450 [facility] Potassium measurement (mass/ volume)Ordered By: Jonathan Lopez on 02-15-2025 Potassium (Unsp spec) [Mass/Vol] 4.0 mmol/L 3.3-5.1 [facility] RBC Auto (Bld) [#/Vol]Ordere d By: Jonathan Lopez on 02-15-2025 RBC (Bld) [#/Vol] 3.18 10*6/uL Low 4.6-6.2 [facility] Serum creatinine measurement (mass/volume)Ordered By: Jonathan Lopez on 02-15-2025 Creatinine [Mass/Vol] 1.69 mg/dL High 0.70-1.20 [facility] Serum glucose measurement (m ass/volume)Ordered By: Jonathan Lopez on 02-15-2025 Glucose [Mass/Vol] 154 mg/dL High 70-99 [facility] Serum or plasma calcium amanda urement (mass/volume)Ordered By: Jonathan Lopez on 02-15-2025 Calcium [Mass/Vol] 8.7 mg/dL 7.6-11.0 [facility] Serum or plasma urea nitroge n measurement (mass/volume)Ordered By: Jonathan Lopez on 02-15-2025 Urea nitrogen [Mass/Vol] 23 mg/dL High 4-19 [facility] Sodium levelOrdered By: Jonathan Lopez on 02-15-2025 Sodium [Moles/Vol] 137 mmol/L 133-145 [facility] White blood cell (WBC) count Ordered By: Jonathan Lopez on 02-15-2025 WBC (Bld) [#/Vol] 7.4 10*3/uL 4.4-11.0 [facility] Anion gap in Serum or Plasma Ordered By: Juany Bellamy on 01-06-2025 Anion gap [Moles/Vol] 11 mmol/L 5-15 [facility] BUN/creatinine ratioOrdered By: Juany Bellamy on 01-06-2025 Urea nitrogen/Creatinine [Mass ratio] 12.0 mg/mg 10-20 [facility] Carbon dioxide, total [Moles /volume] in Central venous bloodOrdered By: Juany Bellamy on 01-06-2025 CO2 [Moles/Vol] 23.3 mmol/L 21.0-32.0 [facility] Chloride assayOrdered By: Michael Bellamy on 01-06-2025 Chloride [Moles/Vol] 106 mmol/L 98-108 [facility] Creatinine Unsp time (U) [Ma ss/Vol]Ordered By: Juany Bellamy on 01-06-2025 Creatinine (U) [Mass/Vol] 52.20 mg/dL 39.00-259. 00 [facility] Erythrocyte distribution wid th (RBC) [Ratio]Ordered By: Juany Bellamy on 01-06-2025 Erythrocyte distribution width (RBC) [Entitic vol] 54.2 fL High 35.1-43.9 [facility] Erythrocyte distribution wid th ratioOrdered By: Juany Bellamy on 01-06-2025 Erythrocyte distribution width (RBC) [Ratio] 15.5 % High 11.6-14.6 [facility] Erythrocyte distribution wid th standard deviationOrdered By: Juany Bellamy on 01-06-2025 Erythrocyte distribution width (RBC) [Ratio] 54.2 fl High 35.1-43.9 [facility] GFR/1.73 sq M.predicted ida g non-blacks MDRD (S/P/Bld) [Vol rate/Area]Ordered By: Juany Bellamy on 01-06-2025 Estimated GFR (MDRD) Non-Af Amer 39 Low >60 [facility] Comment on above: mL/min/1.73m2 CKD-EP I Creatinine Equation (2020) Glomerular filtration rate ( GFR) estimation/1.73 sq m using serum, plasma, or whole bOrdered By: Juany Bellamy on 01-06-2025 GFR/1.73 sq M.predicted among non-blacks MDRD (S/P/Bld) [Vol rate/Area] 39 mL/min/{1.73_m2} Low >60 [facility] Hematocrit Auto (Bld) [Volum e fraction]Ordered By: Juany Bellamy on 01-06-2025 Hematocrit (Bld) [Volume fraction] 28.2 % Low 40-54 [facility] Hemoglobin measurementOrdere d By: Juany Bellamy on 01-06-2025 Hemoglobin (Bld) [Mass/Vol] 9.3 g/dL Low 13.0-16.5 [facility] MCV (mean corpuscular volume ) determinationOrdered By: Juany Bellamy on 01-06-2025 MCV (RBC) [Entitic vol] 94.3 fL High 80-94 [facility] Mean corpuscular hemoglobin (MCH) determinationOrdered By: Juany Bellamy 01-06-2025 MCH (RBC) [Entitic mass] 31.1 pg 27.0-32.0 [facility] Mean corpuscular hemoglobin concentration (MCHC) determinationOrdered By: Juany Bellamy on 01-06-2025 MCHC (RBC) [Mass/Vol] 33.0 g/dL 32-36 [facility] Mean platelet volume determi nationOrdered By: Juany Bellamy on 01-06-2025 Platelet mean volume (Bld) [Entitic vol] 11.5 fL 6.2-12.0 [facility] PTH intactOrdered By: Henrique Bellamy on 01-06-2025 Parathyroid Hormone (Intact) 29 pg/mL -61 [facility] Platelet countOrdered By: Michael Bellamy on 01-06-2025 Platelets (Bld) [#/Vol] 146 10*3/uL Low 150-450 [facility] Potassium (Unsp spec) [Mass/ Vol]Ordered By: Juany Bellamy on 01-06-2025 Potassium [Moles/Vol] 3.7 mmol/L 3.3-5.1 [facility] Potassium measurement (mass/ volume)Ordered By: Juany Bellamy on 01-06-2025 Potassium (Unsp spec) [Mass/Vol] 3.7 mmol/L 3.3-5.1 [facility] Protein/Creatinine (U) [Mass ratio]Ordered By: Juany Bellamy on 01-06-2025 Urine Protein/Creatinine Ratio 154 mg/g CRE 0-200 [facility] RBC Auto (Bld) [#/Vol]Ordere d By: Juany Bellamy on 01-06-2025 RBC (Bld) [#/Vol] 2.99 10*6/uL Low 4.6-6.2 [facility] Random urine creatinine amanda urement (mass/volume)Ordered By: Juany Bellamy on 01-06-2025 Creatinine Unsp time (U) [Mass/Vol] 52.20 mg/dL 39.00-259. 00 [facility] Serum creatinine measurement (mass/volume)Ordered By: Juany Bellamy on 01-06-2025 Creatinine [Mass/Vol] 1.74 mg/dL High 0.70-1.20 [facility] Serum glucose measurement (m ass/volume)Ordered By: Juany Bellamy on 01-06-2025 Glucose [Mass/Vol] 110 mg/dL High 70-99 [facility] Serum or plasma albumin amanda urement (mass/volume)Ordered By: Juany Bellamy on 01-06-2025 Albumin [Mass/Vol] 3.7 g/dL 3.4-4.8 [facility] Serum or plasma calcium amanda urement (mass/volume)Ordered By: Juany Bellamy on 01-06-2025 Calcium [Mass/Vol] 8.8 mg/dL 7.6-11.0 [facility] Serum or plasma urea nitroge n measurement (mass/volume)Ordered By: Juany Bellamy on 01-06-2025 Urea nitrogen [Mass/Vol] 21 mg/dL High 4-19 [facility] Serum phosphorus measurement Ordered By: Juany Bellamy on 01-06-2025 Phosphorus Level 3.4 mg/dL 2.7-4.5 [facility] Sodium levelOrdered By: Brian Bellamy on 01-06-2025 Sodium [Moles/Vol] 140 mmol/L 133-145 [facility] Urine protein measurement (m ass/volume)Ordered By: Juany Bellamy on 01-06-2025 Protein (U) [Mass/Vol] 8.0 mg/dL 0.0-12.0 [facility] Urine protein/creatinine mas s ratioOrdered By: Juany Bellamy on 01-06-2025 Protein/Creatinine (U) [Mass ratio] 154 mg/g CRE 0-200 [facility] White blood cell (WBC) count Ordered By: Juany Bellamy on 01-06-2025 WBC (Bld) [#/Vol] 7.3 10*3/uL 4.4-11.0 [facility] Diagnostic total prostate sp ecific antigen (PSA) measurementOrdered By: Surinder Larson on 12-25-2024 Prostate Specific Antigen Total 0.06 ng/mL 0.00-4.00 [facility] Comment on above: This test was perfor med using the [employer] tPSA method. Measured values of a patient sample can vary depending on the testing procedure used. PSA values determined on patient samples by different testing procedures cannot be used interchangeably. If there is a change in PSA assays while monitoring therapy, sequential testing should be performed to confirm baseline values. Diagnostic total prostate specific antigen (PSA) measurement 0.06 ng/mL 0.00-4.00 [facility] Cardiovascular stress test r eportOrdered By: Clifford Cordero on 12-10-2024 Study report [facility] Work Phone: [phone] Absolute lymphocyte countOrd ered By: Jayme Yang on 10-26-2024 Lymphocytes Auto (Unsp spec) [#/Vol] 1.20 10*3/uL 0.83-4.51 [facility] Absolute neutrophil countOrd ered By: Jayme Yang on 10-26-2024 Neutrophils (Bld) [#/Vol] 1.9 10*3/uL Low 2.0-7.7 [facility] Absolute neutrophil count 1.9 X10^3/uL Low 2.0-7.7 [facility] Automated lymphocyte count a s percentage of total leukocytesOrdered By: Jayme Yang on 10-26-2024 Lymphocytes/100 WBC Auto (Unsp spec) 34.3 % 19-41 [facility] Basophil percentageOrdered B y: Jayme Yang on 10-26-2024 Basophils/100 WBC (Bld) 0.3 % 0-1 [facility] Basophil percentage 0.3 % 0-1 [facility] Eosinophil percentageOrdered By: Jayme Yang on 10-26-2024 Eosinophils/100 WBC (Bld) 0.9 % 0-5 [facility] Eosinophil percentage 0.9 % 0-5 [facility] Erythrocyte distribution wid th (RBC) [Entitic vol]Ordered By: Jayme Yang on 10-26-2024 Erythrocyte distribution width standard deviation 51.6 fl High 35.1-43.9 [facility] Erythrocyte distribution wid th (RBC) [Ratio]Ordered By: Jayme Yang on 10-26-2024 Erythrocyte distribution width ratio 14.9 % High 11.6-14.6 [facility] Erythrocyte distribution width (RBC) [Entitic vol] 51.6 fL High 35.1-43.9 [facility] Erythrocyte distribution wid th ratioOrdered By: aJyme Yang on 10-26-2024 Erythrocyte distribution width (RBC) [Ratio] 14.9 % High 11.6-14.6 [facility] Erythrocyte distribution wid th standard deviationOrdered By: Jayme Yang on 10-26-2024 Erythrocyte distribution width (RBC) [Ratio] 51.6 fl High 35.1-43.9 [facility] Hematocrit Auto (Bld) [Volum e fraction]Ordered By: Jayme Yang on 10-26-2024 Hematocrit (Bld) [Volume fraction] 29.0 % Low 40-54 [facility] Automated blood hematocrit (percentage) 29.0 % Low 40-54 [facility] Hemoglobin measurementOrdere d By: Jayme Yang on 10-26-2024 Hemoglobin (Bld) [Mass/Vol] 9.6 g/dL Low 13.0-16.5 [facility] Hemoglobin measurement 9.6 g/dL Low 13.0-16.5 [facility] Immature granulocytes/100 WB C Auto (Bld)Ordered By: Jayme Yang on 10-26-2024 Immature granulocytes/100 WBC (Bld) 0.600 % 0.0-0.9 [facility] Comment on above: IG% - Immature Granu locytes (promyelocytes, myelocytes and metamyelocytes) > 1% indicates that a LEFT SHIFT is Present. Automated immature granulocyte percentage 0.600 % 0.0-0.9 [facility] Lymphocytes Auto (Unsp spec) [#/Vol]Ordered By: Jayme Yang on 10-26-2024 Lymphocytes (Bld) [#/Vol] 1.20 10*3/uL 0.83-4.51 [facility] Absolute lymphocyte count 1.20 X10^3/uL 0.83-4.51 [facility] Lymphocytes/100 WBC Auto (Un sp spec)Ordered By: Jayme Yang on 10-26-2024 Lymphocytes/100 WBC (Bld) 34.3 % [facility] Automated lymphocyte count as percentage of total leukocytes 34.3 % [facility] MCV (RBC) [Entitic vol]Order ed By: Jayme Yang on 10-26-2024 MCV (mean corpuscular volume) determination 93.9 fL 80-94 [facility] MCV (mean corpuscular volume ) determinationOrdered By: Jayme Yang on 10-26-2024 MCV (RBC) [Entitic vol] 93.9 fL 80-94 [facility] Mean corpuscular hemoglobin (MCH) determinationOrdered By: Jayme Yang on 10-26-2024 MCH (RBC) [Entitic mass] 31.1 pg 27.0-32.0 [facility] Mean corpuscular hemoglobin (MCH) determination 31.1 pg 27.0-32.0 [facility] Mean corpuscular hemoglobin concentration (MCHC) determinationOrdered By: Jayme Yang on 10-26-2024 MCHC (RBC) [Mass/Vol] 33.1 g/dL -36 [facility] Mean corpuscular hemoglobin concentration (MCHC) determination 33.1 g/dL -36 [facility] Mean platelet volume determi nationOrdered By: Jayme Yang on 10-26-2024 Platelet mean volume (Bld) [Entitic vol] 11.6 fL 6.2-12.0 [facility] Mean platelet volume determination 11.6 fl 6.2-12.0 [facility] Monocyte percentageOrdered B y: Jayme Yang on 10-26-2024 Monocytes/100 WBC (Bld) 10.9 % High 0-10 [facility] Monocyte percentage 10.9 % High 0-10 [facility] Neutrophil percentageOrdered By: Jayme Yang on 10-26-2024 Neutrophils/100 WBC (Bld) 53.0 % 47-70 [facility] Neutrophil percentage 53.0 % 47-70 [facility] Nucleated red blood cell per centageOrdered By: Jayme Yang on 10-26-2024 Nucleated RBC/100 WBC (Bld) [Ratio] 0 % 0-5 [facility] Nucleated red blood cell percentage 0 % 0-5 [facility] Platelet countOrdered By: Adry Yang on 10-26-2024 Platelets (Bld) [#/Vol] 121 10*3/uL Low 150-450 [facility] Platelet count 121 K/mm3 Low 150-450 [facility] RBC Auto (Bld) [#/Vol]Ordere d By: Jayme Yang on 10-26-2024 RBC (Bld) [#/Vol] 3.09 10*6/uL Low 4.6-6.2 [facility] Automated blood erythrocyte count 3.09 M/mm3 Low 4.6-6.2 [facility] White blood cell (WBC) count Ordered By: Jayme Yang on 10-26-2024 WBC (Bld) [#/Vol] 3.5 10*3/uL Low 4.4-11.0 [facility] White blood cell (WBC) count 3.5 K/mm3 Low 4.4-11.0 [facility] Diagnostic total prostate sp ecific antigen (PSA) measurementOrdered By: Keo Montemayor on 10-05-2024 Prostate Specific Antigen Total 0.08 ng/mL 0.0-4.0 [facility] Comment on above: This test was perfor med using the TPSA assay method for [employer] chemistry system. Values obtained with differentassay methods cannot be used interchangably.When changing PSA assays in the course of monitoring apatient, additional sequential testing should be carriedout to confirm baseline values. Diagnostic total prostate specific antigen (PSA) measurement 0.08 ng/mL 0.0-4.0 [facility] ALP [Catalytic activity/Vol] Ordered By: Marycruz Yen on 09-12-2024 Serum or plasma alkaline phosphatase measurement 48 U/L 45-117 [facility] ALT [Catalytic activity/Vol] Ordered By: Marycruz Yen on 09-12-2024 Serum or plasma alanine aminotransferase (ALT) measurement 32 U/L 16-61 [facility] Absolute neutrophil countOrd ered By: Marycruz Yen on 09-12-2024 Absolute neutrophil count 1.7 X10^3/uL Low 2.0-7.7 [facility] Albumin [Mass/Vol]Ordered By : Marycruz Yen on 09-12-2024 Serum or plasma albumin measurement (mass/volume) 3.5 g/dL 3.2-5.0 [facility] Albumin to globulin ratioOrd ered By: [facility] Farshad on 09-12-2024 Albumin to globulin ratio 1.1 RATIO 0.9-2.4 [facility] Basophil percentageOrdered B y: Marycruz Yen on 09-12-2024 Basophil percentage 0.3 % 0-1 [facility] Bilirubin, totalOrdered By: Marycruz Yen on 09-12-2024 Bilirubin, total 0.40 mg/dL 0.20-1.00 [facility] Blood urea nitrogen (BUN)/cr eatinine ratioOrdered By: Marycruz Yen on 09-12-2024 Blood urea nitrogen (BUN)/creatinine ratio 11.7 RATIO 10-20 [facility] Calcium [Mass/Vol]Ordered By : Marycruz Yen on 09-12-2024 Serum or plasma calcium measurement (mass/volume) 9.1 mg/dL 8.5-10.1 [facility] Carbon dioxide measurementOr dered By: Marycruz Yen on 09-12-2024 Carbon dioxide measurement 32.0 mmol/L 21.0-32.0 [facility] Chloride measurementOrdered By: Marycruz Yen on 09-12-2024 Chloride measurement 108 mmol/L High 98-107 [facility] Creatinine [Mass/Vol]Ordered By: Marycruz Yen on 09-12-2024 Serum or plasma creatinine measurement (mass/volume) 1.37 mg/dL High 0.70-1.30 [facility] Eosinophil percentageOrdered By: Marycruz Yen on 09-12-2024 Eosinophil percentage 1.7 % 0-5 [facility] Erythrocyte distribution wid th (RBC) [Entitic vol]Ordered By: Marycruz Yen on 09-12-2024 Erythrocyte distribution width standard deviation 53.8 fl High 35.1-43.9 [facility] Erythrocyte distribution wid th (RBC) [Ratio]Ordered By: Marycruz Yen on 09-12-2024 Erythrocyte distribution width ratio 15.3 % High 11.6-14.6 [facility] Estimated glomerular filtrat ion rate (GFR) AmericanOrdered By: Marycruz Yen on 09-12-2024 Estimated glomerular filtration rate (GFR) 64 mL/min >60 [facility] Glomerular filtration rate ( GFR) estimationOrdered By: Marycruz Yen on 09-12-2024 Glomerular filtration rate (GFR) estimation 53 mL/min Low >60 [facility] Glucose measurementOrdered B y: Marycruz Yen on 09-12-2024 Glucose measurement 116 mg/dL High 74-106 [facility] Hematocrit Auto (Bld) [Volum e fraction]Ordered By: Marycruz Yen on 09-12-2024 Automated blood hematocrit (percentage) 32.1 % Low 40-54 [facility] Hemoglobin measurementOrdere d By: Marycruz Yen on 09-12-2024 Hemoglobin measurement 10.5 g/dL Low 13.0-16.5 [facility] Immature granulocytes/100 WB C Auto (Bld)Ordered By: Marycruz Yen on 09-12-2024 Automated immature granulocyte percentage 0.300 % 0.0-0.9 [facility] Lymphocytes Auto (Unsp spec) [#/Vol]Ordered By: Marycruz Yen on 09-12-2024 Absolute lymphocyte count 1.42 X10^3/uL 0.83-4.51 [facility] Lymphocytes/100 WBC Auto (Un sp spec)Ordered By: Marycruz Yen on 09-12-2024 Automated lymphocyte count as percentage of total leukocytes 40.7 % -41 [facility] MCV (RBC) [Entitic vol]Order ed By: Marycruz Yen on 09-12-2024 MCV (mean corpuscular volume) determination 95.3 fL High 80-94 [facility] Mean corpuscular hemoglobin (MCH) determinationOrdered By: Marycruz Yen on 09-12-2024 Mean corpuscular hemoglobin (MCH) determination 31.2 pg 27.0-32.0 [facility] Mean corpuscular hemoglobin concentration (MCHC) determinationOrdered By: Marycruz Yen on 09-12-2024 Mean corpuscular hemoglobin concentration (MCHC) determination 32.7 g/dL 32-36 [facility] Mean platelet volume determi nationOrdered By: Marycruz Yen on 09-12-2024 Mean platelet volume determination 10.8 fl 6.2-12.0 [facility] Monocyte percentageOrdered B y: Marycruz Yen on 09-12-2024 Monocyte percentage 8.3 % 0-10 [facility] Neutrophil percentageOrdered By: Marycruz Yen on 09-12-2024 Neutrophil percentage 48.7 % 47-70 [facility] No Panel InformationOrdered By: Marycruz Yen on 09-12-2024 19 U/L 15-37 [facility] Nucleated red blood cell per centageOrdered By: Marycruz Yen on 09-12-2024 Nucleated red blood cell percentage 0 % 0-5 [facility] Platelet countOrdered By: Adry Yen on 09-12-2024 Platelet count 141 K/mm3 Low 150-450 [facility] Potassium measurementOrdered By: Marycruz Yen on 09-12-2024 Potassium measurement 3.6 mmol/L 3.5-5.1 [facility] RBC Auto (Bld) [#/Vol]Ordere d By: Marycruz Yen on 09-12-2024 Automated blood erythrocyte count 3.37 M/mm3 Low 4.6-6.2 [facility] Serum anion gap measurementO rdered By: Marycruz Yen on 09-12-2024 Serum anion gap measurement 3 Low 5-15 [facility] Serum globulin measurementOr dered By: Marycruz Yen on 09-12-2024 Serum globulin measurement 3.2 g/dL 2.2-4.2 [facility] Sodium levelOrdered By: Anival Yen on 09-12-2024 Sodium level 143 mmol/L 136-145 [facility] Total proteinOrdered By: Jamir Yen on 09-12-2024 Total protein 6.7 g/dL 6.4-8.2 [facility] Urate [Mass/Vol]Ordered By: Marycruz Yen on 09-12-2024 Serum or plasma uric acid measurement (mass/volume) 5.2 mg/dL 3.5-7.2 [facility] Urea nitrogen [Mass/Vol]Orde red By: Marycruz Yen on 09-12-2024 Serum or plasma urea nitrogen measurement (mass/volume) 16 mg/dL 7-18 [facility] White blood cell (WBC) count Ordered By: Marycruz Yen on 09-12-2024 White blood cell (WBC) count 3.5 K/mm3 Low 4.4-11.0 [facility] Absolute lymphocyte countOrd ered By: Marycruz Yen on 01-10-2024 Lymphocytes Auto (Unsp spec) [#/Vol] 1.47 10*3/uL 0.83-4.51 [facility] Automated lymphocyte count a s percentage of total leukocytesOrdered By: Marycruz Yen on 01-10-2024 Lymphocytes/100 WBC Auto (Unsp spec) 19.7 % 19-41 [facility] Basophil percentageOrdered B y: Marycruz Yen on 01-10-2024 Basophil percentage 12.1 g/dL 13.0-16.5 [facility] Basophil percentage 119 mg/dL 74-106 [facility] Basophil percentage 7.3 g/dL 6.4-8.2 [facility] Basophil percentage 0.40 mg/dL 0.20-1.00 [facility] Basophil percentage 139 mmol/L 136-145 [facility] Basophil percentage 3.5 mmol/L 3.5-5.1 [facility] Basophil percentage 107 mmol/L 98-107 [facility] Basophils (Bld) [#/Vol] 7.5 10*3/uL 4.4-11.0 [facility] Basophils (Bld) [#/Vol] 5.1 10*3/uL 2.0-7.7 [facility] Basophils/100 WBC (Bld) 68.5 % 47-70 [facility] Basophils/100 WBC (Bld) 9.6 % 0-10 [facility] Basophils/100 WBC (Bld) 1.6 % 0-5 [facility] Basophils/100 WBC (Bld) 0.3 % 0-1 [facility] Determination of erythrocyte mean corpuscular volume (MCV)Ordered By: Marycruz Yen on 01-10-2024 MCV (RBC) [Entitic vol] 94.1 fL 80-94 [facility] Erythrocyte distribution wid th ratioOrdered By: Marycruz Yen on 01-10-2024 Erythrocyte distribution width (RBC) [Ratio] 14.2 % 11.6-14.6 [facility] Erythrocyte distribution wid th standard deviationOrdered By: Marycruz Yen on 01-10-2024 Erythrocyte distribution width (RBC) [Entitic vol] 48.6 fL 35.1-43.9 [facility] Hematocrit Auto (Bld) [Volum e fraction]Ordered By: Marycruz Yen on 01-10-2024 Hematocrit (Bld) [Volume fraction] 36.6 % 40-54 [facility] Immature granulocytes/100 WB C Auto (Bld)Ordered By: Marycruz Yen on 01-10-2024 Immature granulocytes/100 WBC (Bld) 0.300 % 0.0-0.9 [facility] No Panel InformationOrdered By: Marycruz Yen on 01-10-2024 31.1 pg 27.0-32.0 [facility] 33.1 g/dL 32-36 [facility] 185 K/mm3 150-450 [facility] 11.9 fl 6.2-12.0 [facility] 0 % 0-5 [facility] 46 mL/min >60 [facility] 55 mL/min >60 [facility] 12.7 RATIO 10-20 [facility] 3.7 g/dL 2.2-4.2 [facility] 1.0 RATIO 0.9-2.4 [facility] 58 U/L 45-117 [facility] 41 U/L 16-61 [facility] 29.0 mmol/L 21.0-32.0 [facility] RBC Auto (Bld) [#/Vol]Ordere d By: Marycruz Yen on 01-10-2024 RBC (Bld) [#/Vol] 3.89 10*6/uL 4.6-6.2 [facility] Serum or plasma calcium amanda urement (mass/volume)Ordered By: Marycruz Yen on 01-10-2024 Calcium [Mass/Vol] 9.1 mg/dL 8.5-10.1 [facility] Serum or plasma creatinine m easurement (mass/volume)Ordered By: Marycruz Yen on 01-10-2024 Creatinine [Mass/Vol] 1.57 mg/dL 0.70-1.30 [facility] Serum or plasma urea nitroge n measurement (mass/volume)Ordered By: Marycruz Yen on 01-10-2024 Urea nitrogen [Mass/Vol] 20 mg/dL 7-18 [facility] Serum or plasma uric acid me asurement (mass/volume)Ordered By: Marycruz Yen on 01-10-2024 Urate [Mass/Vol] 5.8 mg/dL 3.5-7.2 [facility] Thin prep Papanicolaou smear with manual screeningOrdered By: Marycruz Yen on 01-10-2024 Thin prep Papanicolaou smear with manual screening 3.6 g/dL 3.2-5.0 [facility] Thin prep Papanicolaou smear with manual screening 36 U/L 15-37 [facility] Thin prep Papanicolaou smear with manual screening 3 5-15 [facility] Basophil percentageOrdered B y: Suzie Ashton on 12-11-2023 Basophil percentage 0.07 ng/mL 0.0-4.0 [facility] Serum or plasma thyroid stim ulating hormone (TSH) measurement (units/volume)Ordered By: Suzie Ashton on 12-11-2023 TSH Qn 5.13 uIU/mL 0.358-3.74 [facility] Basophil percentageOrdered B y: Js Lee on 11-13-2023 Basophil percentage 139 mg/dL 74-106 [facility] Basophil percentage 146 mmol/L 136-145 [facility] Basophil percentage 3.5 mmol/L 3.5-5.1 [facility] Basophil percentage 111 mmol/L 98-107 [facility] No Panel InformationOrdered By: Js Lee on 11-13-2023 61 mL/min >60 [facility] 74 mL/min >60 [facility] 55.64 ml/min [facility] 17.4 RATIO 10-20 [facility] 31.0 mmol/L 21.0-32.0 [facility] Serum or plasma calcium amanda urement (mass/volume)Ordered By: Js Lee on 11-13-2023 Calcium [Mass/Vol] 8.9 mg/dL 8.5-10.1 [facility] Serum or plasma creatinine m easurement (mass/volume)Ordered By: Js Lee on 11-13-2023 Creatinine [Mass/Vol] 1.21 mg/dL 0.70-1.30 [facility] Serum or plasma urea nitroge n measurement (mass/volume)Ordered By: Js Lee on 11-13-2023 Urea nitrogen [Mass/Vol] 21 mg/dL 7-18 [facility] Thin prep Papanicolaou smear with manual screeningOrdered By: Js Lee on 11-13-2023 Thin prep Papanicolaou smear with manual screening 4 5-15 [facility] Basophil percentageOrdered B y: Js Lee on 11-12-2023 Basophil percentage 11.8 g/dL 13.0-16.5 [facility] Basophils (Bld) [#/Vol] 5.8 10*3/uL 4.4-11.0 [facility] Determination of erythrocyte mean corpuscular volume (MCV)Ordered By: Js Lee on 11-12-2023 MCV (RBC) [Entitic vol] 94.7 fL 80-94 [facility] Erythrocyte distribution wid th ratioOrdered By: Js Lee on 11-12-2023 Erythrocyte distribution width (RBC) [Ratio] 15.7 % 11.6-14.6 [facility] Erythrocyte distribution wid th standard deviationOrdered By: Js Lee on 11-12-2023 Erythrocyte distribution width (RBC) [Entitic vol] 54.9 fL 35.1-43.9 [facility] Hematocrit Auto (Bld) [Volum e fraction]Ordered By: Js Lee on 11-12-2023 Hematocrit (Bld) [Volume fraction] 36.0 % 40-54 [facility] No Panel InformationOrdered By: Js Lee on 11-12-2023 31.1 pg 27.0-32.0 [facility] 32.8 g/dL 32-36 [facility] 166 K/mm3 150-450 [facility] 11.4 fl 6.2-12.0 [facility] No Panel InformationOrdered By: Laureano Jennings on 11-12-2023 146 pg/mL 3.0-78.0 [facility] RBC Auto (Bld) [#/Vol]Ordere d By: Js Lee on 11-12-2023 RBC (Bld) [#/Vol] 3.80 10*6/uL 4.6-6.2 [facility] Absolute lymphocyte countOrd ered By: Ana Maria Barnhart on 11-11-2023 Lymphocytes Auto (Unsp spec) [#/Vol] 2.28 10*3/uL 0.83-4.51 [facility] Automated lymphocyte count a s percentage of total leukocytesOrdered By: Ana Maria Barnhart on 11-11-2023 Lymphocytes/100 WBC Auto (Unsp spec) 32.6 % 19-41 [facility] Basophil percentageOrdered B y: Laureano Jennings on 11-11-2023 Basophil percentage 148 mg/dL <200 [facility] Basophil percentage 255 mg/dL <199 [facility] Basophil percentageOrdered B y: Ana Maria Barnhart on 11-11-2023 Basophil percentage 12.5 g/dL 13.0-16.5 [facility] Basophil percentage 221 mg/dL 74-106 [facility] Basophil percentage 144 mmol/L 136-145 [facility] Basophil percentage 3.4 mmol/L 3.5-5.1 [facility] Basophil percentage 111 mmol/L 98-107 [facility] Basophils (Bld) [#/Vol] 7.0 10*3/uL 4.4-11.0 [facility] Basophils (Bld) [#/Vol] 3.7 10*3/uL 2.0-7.7 [facility] Basophils/100 WBC (Bld) 52.3 % 47-70 [facility] Basophils/100 WBC (Bld) 11.6 % 0-10 [facility] Basophils/100 WBC (Bld) 2.9 % 0-5 [facility] Basophils/100 WBC (Bld) 0.3 % 0-1 [facility] Determination of erythrocyte mean corpuscular volume (MCV)Ordered By: Ana Maria Barnhart on 11-11-2023 MCV (RBC) [Entitic vol] 94.4 fL 80-94 [facility] Erythrocyte distribution wid th ratioOrdered By: Ana Maria Barnhart on 11-11-2023 Erythrocyte distribution width (RBC) [Ratio] 15.3 % 11.6-14.6 [facility] Erythrocyte distribution wid th standard deviationOrdered By: Ana Maria Barnhart on 11-11-2023 Erythrocyte distribution width (RBC) [Entitic vol] 53.4 fL 35.1-43.9 [facility] Hematocrit Auto (Bld) [Volum e fraction]Ordered By: Ana Maria Barnhart on 11-11-2023 Hematocrit (Bld) [Volume fraction] 38.6 % 40-54 [facility] Immature granulocytes/100 WB C Auto (Bld)Ordered By: Ana Maria Barnhart on 11-11-2023 Immature granulocytes/100 WBC (Bld) 0.300 % 0.0-0.9 [facility] No Panel InformationOrdered By: Laureano Jennings on 11-11-2023 33 mg/dL >40 [facility] 64 mg/dL 0-130 [facility] 51 mg/dL 5-40 [facility] No Panel InformationOrdered By: Ana Maria Barnhart on 11-11-2023 30.6 pg 27.0-32.0 [facility] 32.4 g/dL 32-36 [facility] 155 K/mm3 150-450 [facility] 11.2 fl 6.2-12.0 [facility] 0 % 0-5 [facility] 51 mL/min >60 [facility] 61 mL/min >60 [facility] 47.81 ml/min [facility] 11.2 RATIO 10-20 [facility] 1.9 mg/dL 1.6-2.6 [facility] 28.0 mmol/L 21.0-32.0 [facility] RBC Auto (Bld) [#/Vol]Ordere d By: Ana Maria Barnhart on 11-11-2023 RBC (Bld) [#/Vol] 4.09 10*6/uL 4.6-6.2 [facility] Serum or plasma calcium amanda urement (mass/volume)Ordered By: Ana Maria Barnhart on 11-11-2023 Calcium [Mass/Vol] 9.1 mg/dL 8.5-10.1 [facility] Serum or plasma cardiac trop onin I panel by high sensitivity methodOrdered By: Ana Maria Barnhart on 11-11-2023 Tropinin I.cardiac panel High sensitivity method 23 pg/mL 3.0-78.0 [facility] Serum or plasma creatinine m easurement (mass/volume)Ordered By: Ana Maria Barnhart on 11-11-2023 Creatinine [Mass/Vol] 1.43 mg/dL 0.70-1.30 [facility] Serum or plasma urea nitroge n measurement (mass/volume)Ordered By: Ana Maria Barnhart on 11-11-2023 Urea nitrogen [Mass/Vol] 16 mg/dL 7-18 [facility] Thin prep Papanicolaou smear with manual screeningOrdered By: Ana Maria Barnhart on 11-11-2023 Thin prep Papanicolaou smear with manual screening 5 5-15 [facility] Basophil percentageOrdered B y: Keo Montemayor on 11-08-2023 Basophil percentage 0 SEEN /hpf 0-5 [facility] Bilirubin Test strip Ql (U)O rdered By: Keo Montemayor on 11-08-2023 Bilirubin Ql (U) Negative Negative [facility] Ketones Test strip Ql (U)Ord ered By: Keo Montemayor on 11-08-2023 Ketones Ql (U) Negative Negative [facility] Mucus LM Ql (Urine sed)Order ed By: Keo Montemayor on 11-08-2023 Mucus Ql (Urine sed) RARE /hpf [facility] Nitrite Test strip Ql (U)Ord ered By: Keo Montemayor on 11-08-2023 Nitrite Ql (U) Negative Negative [facility] No Panel InformationOrdered By: Keo Montemayor on 11-08-2023 10-25 SEEN /hpf 0-5 [facility] Protein Test strip Ql (U)Ord ered By: Keo Montemayor on 11-08-2023 Protein Ql (U) 100 mg/dl Negative [facility] Squamous epithelial cells de tection in urine sediment by light microscopyOrdered By: Keo Montemayor on 11-08-2023 Epithelial cells.squamous LM Ql (Urine sed) 0-5 SEEN /hpf 0-5 [facility] Urine blood detectionOrdered By: Keo Montemayor on 11-08-2023 RBC Ql (U) 25 /ul Negative [facility] Urine clarityOrdered By: Magdi Montemayor on 11-08-2023 Clarity (U) Sl. Cloudy Clear [facility] Urine color determinationOrd ered By: Keo Montemayor on 11-08-2023 Color (U) Yellow Yellow [facility] Urine glucose detectionOrder ed By: Keo Montemayor on 11-08-2023 Glucose Ql (U) Normal mg/dl Normal [facility] Urine leukocyte esterase det ection by dipstickOrdered By: Keo Montemayor on 11-08-2023 Leukocyte esterase Test strip Ql (U) Negative Negative [facility] Urine pHOrdered By: Keo myers on 11-08-2023 pH (U) 6.0 [pH] 5.0 - 8.0 [facility] Urine sediment bacteria coun t by microscopy (number/high power field)Ordered By: Keo Montemayor on 11-08-2023 Bacteria LM.HPF (Urine sed) [#/Area] RARE /hpf None Seen [facility] Urine specific gravity measu rementOrdered By: Keo Montemayor on 11-08-2023 Specific gravity (U) [Rel density] 1.015 1.002-1.03 0 [facility] Urine urobilinogen measureme ntOrdered By: Keo Montemayor on 11-08-2023 Urobilinogen Ql (U) Normal mg/dl Normal [facility] Absolute lymphocyte countOrd ered By: Marycruz Yen on 10-16-2023 Lymphocytes Auto (Unsp spec) [#/Vol] 1.88 10*3/uL 0.83-4.51 [facility] Automated lymphocyte count a s percentage of total leukocytesOrdered By: Marycruz Yen on 10-16-2023 Lymphocytes/100 WBC Auto (Unsp spec) 37.8 % 19-41 [facility] Basophil percentageOrdered B y: Marycruz Yen on 10-16-2023 Basophil percentage 12.2 g/dL 13.0-16.5 [facility] Basophil percentage 119 mg/dL 74-106 [facility] Basophil percentage 7.4 g/dL 6.4-8.2 [facility] Basophil percentage 0.40 mg/dL 0.20-1.00 [facility] Basophil percentage 143 mmol/L 136-145 [facility] Basophil percentage 3.8 mmol/L 3.5-5.1 [facility] Basophil percentage 110 mmol/L 98-107 [facility] Basophils (Bld) [#/Vol] 5.0 10*3/uL 4.4-11.0 [facility] Basophils (Bld) [#/Vol] 2.1 10*3/uL 2.0-7.7 [facility] Basophils/100 WBC (Bld) 42.7 % 47-70 [facility] Basophils/100 WBC (Bld) 13.1 % 0-10 [facility] Basophils/100 WBC (Bld) 5.8 % 0-5 [facility] Basophils/100 WBC (Bld) 0.4 % 0-1 [facility] Determination of erythrocyte mean corpuscular volume (MCV)Ordered By: Marycruz Yen on 10-16-2023 MCV (RBC) [Entitic vol] 93.9 fL 80-94 [facility] Erythrocyte distribution wid th ratioOrdered By: Marycruz Yen on 10-16-2023 Erythrocyte distribution width (RBC) [Ratio] 16.2 % 11.6-14.6 [facility] Erythrocyte distribution wid th standard deviationOrdered By: Marycruz Yen on 10-16-2023 Erythrocyte distribution width (RBC) [Entitic vol] 55.0 fL 35.1-43.9 [facility] Hematocrit Auto (Bld) [Volum e fraction]Ordered By: Marycruz Yen on 10-16-2023 Hematocrit (Bld) [Volume fraction] 36.7 % 40-54 [facility] Immature granulocytes/100 WB C Auto (Bld)Ordered By: Marycruz Yen on 10-16-2023 Immature granulocytes/100 WBC (Bld) 0.200 % 0.0-0.9 [facility] No Panel InformationOrdered By: Marycruz Yen on 10-16-2023 31.2 pg 27.0-32.0 [facility] 33.2 g/dL 32-36 [facility] 152 K/mm3 150-450 [facility] 0 % 0-5 [facility] 58 mL/min >60 [facility] 70 mL/min >60 [facility] 12.5 RATIO 10-20 [facility] 4.1 g/dL 2.2-4.2 [facility] 0.8 RATIO 0.9-2.4 [facility] 57 U/L 16-61 [facility] 28.0 mmol/L 21.0-32.0 [facility] Platelet mean volume Derrick-Ec ker (Bld) [Entitic vol]Ordered By: Marycruz Yen on 10-16-2023 Platelet mean volume (Bld) [Entitic vol] 10.4 fL 6.2-12.0 [facility] RBC Auto (Bld) [#/Vol]Ordere d By: Marycruz Yen on 10-16-2023 RBC (Bld) [#/Vol] 3.91 10*6/uL 4.6-6.2 [facility] Serum or plasma calcium amanda urement (mass/volume)Ordered By: Marycruz Yen on 10-16-2023 Calcium [Mass/Vol] 9.2 mg/dL 8.5-10.1 [facility] Serum or plasma creatinine m easurement (mass/volume)Ordered By: Marycruz Yen on 10-16-2023 Creatinine [Mass/Vol] 1.28 mg/dL 0.70-1.30 [facility] Serum or plasma urea nitroge n measurement (mass/volume)Ordered By: Marycruz Yen on 10-16-2023 Urea nitrogen [Mass/Vol] 16 mg/dL 7-18 [facility] Serum or plasma uric acid me asurement (mass/volume)Ordered By: Marycruz Yen on 10-16-2023 Urate [Mass/Vol] 4.3 mg/dL 3.5-7.2 [facility] Thin prep Papanicolaou smear with manual screeningOrdered By: Marycruz Yen on 10-16-2023 Thin prep Papanicolaou smear with manual screening 3.3 g/dL 3.2-5.0 [facility] Thin prep Papanicolaou smear with manual screening 39 U/L 15-37 [facility] Thin prep Papanicolaou smear with manual screening 5 5-15 [facility] Absolute lymphocyte countOrd ered By: Marycruz Yen on 09-27-2023 Lymphocytes Auto (Unsp spec) [#/Vol] 1.33 10*3/uL 0.83-4.51 [facility] Basophil percentageOrdered B y: Marycruz Yen on 09-27-2023 Basophil percentage 288 mg/dL 74-106 [facility] Basophil percentage 7.0 g/dL 6.4-8.2 [facility] Basophil percentage 0.40 mg/dL 0.20-1.00 [facility] Basophil percentage 139 mmol/L 136-145 [facility] Basophil percentage 3.6 mmol/L 3.5-5.1 [facility] Basophil percentage 105 mmol/L 98-107 [facility] Basophils (Bld) [#/Vol] 6.7 10*3/uL 4.4-11.0 [facility] Basophils (Bld) [#/Vol] 4.3 10*3/uL 2.0-7.7 [facility] Basophils/100 WBC (Bld) 64.9 % 47-70 [facility] Basophils/100 WBC (Bld) 0.9 % 0-5 [facility] Basophils/100 WBC (Bld) 0.1 % 0-1 [facility] Blood erythrocytes count (nu mber/volume)Ordered By: Marycruz Yen on 09-27-2023 RBC (Bld) [#/Vol] 3.97 10*6/uL 4.6-6.2 [facility] Blood hemoglobin measurement (mass/volume)Ordered By: Marycruz Yen on 09-27-2023 Hemoglobin (Bld) [Mass/Vol] 12.3 g/dL 13.0-16.5 [facility] Blood lymphocytes/100 leukoc ytesOrdered By: Marycruz Yen on 09-27-2023 Lymphocytes/100 WBC (Bld) 19.9 % 19-41 [facility] Blood monocytes/100 leukocyt esOrdered By: Marycruz Yen on 09-27-2023 Monocytes/100 WBC (Bld) 12.3 % 0-10 [facility] Blood platelet mean volumeOr dered By: Marycruz Yen on 09-27-2023 Platelet mean volume (Bld) [Entitic vol] 10.2 fL 6.2-12.0 [facility] Determination of erythrocyte mean corpuscular volume (MCV)Ordered By: Marycruz Yen on 09-27-2023 MCV (RBC) [Entitic vol] 91.9 fL 80-94 [facility] Hematocrit Auto (Bld) [Volum e fraction]Ordered By: Marycruz Yen on 09-27-2023 Hematocrit (Bld) [Volume fraction] 36.5 % 40-54 [facility] MCHC Auto (RBC) [Mass/Vol]Or dered By: Marycruz Yen on 09-27-2023 MCHC (RBC) [Mass/Vol] 33.7 g/dL 32-36 [facility] No Panel InformationOrdered By: Marycruz Yen on 09-27-2023 31.0 pg 27.0-32.0 [facility] 15.1 % 11.6-14.6 [facility] 50.6 fl 35.1-43.9 [facility] 1.900 % 0.0-0.9 [facility] 0.6 % 0-5 [facility] 45 mL/min >60 [facility] 54 mL/min >60 [facility] 15.6 RATIO 10-20 [facility] 4.1 g/dL 2.2-4.2 [facility] 65 U/L 45-117 [facility] 48 U/L 16-61 [facility] 28.0 mmol/L 21.0-32.0 [facility] Platelets bldOrdered By: Jamir Yen on 09-27-2023 Platelets (Bld) [#/Vol] 132 10*3/uL 150-450 [facility] Serum or plasma albumin amanda urement (mass/volume)Ordered By: Marycruz Yen on 09-27-2023 Albumin [Mass/Vol] 2.9 g/dL 3.2-5.0 [facility] Serum or plasma albumin/glob ulin mass ratioOrdered By: Marycruz Yen on 09-27-2023 Albumin/Globulin [Mass ratio] 0.7 {ratio} 0.9-2.4 [facility] Serum or plasma calcium amanda urement (mass/volume)Ordered By: Marycruz Yen on 09-27-2023 Calcium [Mass/Vol] 8.7 mg/dL 8.5-10.1 [facility] Serum or plasma creatinine m easurement (mass/volume)Ordered By: Marycruz Yen on 09-27-2023 Creatinine [Mass/Vol] 1.60 mg/dL 0.70-1.30 [facility] Serum or plasma urea nitroge n measurement (mass/volume)Ordered By: Marycruz Yen on 09-27-2023 Urea nitrogen [Mass/Vol] 25 mg/dL 7-18 [facility] Serum or plasma uric acid me asurement (mass/volume)Ordered By: Marycruz Yen on 09-27-2023 Urate [Mass/Vol] 5.3 mg/dL 3.5-7.2 [facility] Thin prep Papanicolaou smear with manual screeningOrdered By: Marycruz Yen on 09-27-2023 Thin prep Papanicolaou smear with manual screening 30 U/L 15-37 [facility] Thin prep Papanicolaou smear with manual screening 6 5-15 [facility] Absolute lymphocyte countOrd ered By: Boris Bojorquez on 09-24-2023 Lymphocytes Auto (Unsp spec) [#/Vol] 1.09 10*3/uL 0.83-4.51 [facility] Basophil percentageOrdered B y: Boris Bojorquez on 09-24-2023 Basophil percentage 261 mg/dL 74-106 [facility] Basophil percentage 140 mmol/L 136-145 [facility] Basophil percentage 3.8 mmol/L 3.5-5.1 [facility] Basophil percentage 107 mmol/L 98-107 [facility] Basophils (Bld) [#/Vol] 5.0 10*3/uL 4.4-11.0 [facility] Basophils (Bld) [#/Vol] 3.6 10*3/uL 2.0-7.7 [facility] Basophils/100 WBC (Bld) 71.5 % 47-70 [facility] Basophils/100 WBC (Bld) 0.0 % 0-5 [facility] Basophils/100 WBC (Bld) 0.2 % 0-1 [facility] Blood erythrocytes count (nu mber/volume)Ordered By: Boris Bojorquez on 09-24-2023 RBC (Bld) [#/Vol] 3.74 10*6/uL 4.6-6.2 [facility] Blood hemoglobin measurement (mass/volume)Ordered By: Boris Bojorquez on 09-24-2023 Hemoglobin (Bld) [Mass/Vol] 11.2 g/dL 13.0-16.5 [facility] Blood lymphocytes/100 leukoc ytesOrdered By: Boris Bojorquez on 09-24-2023 Lymphocytes/100 WBC (Bld) 21.9 % 19-41 [facility] Blood monocytes/100 leukocyt esOrdered By: Boris Bojorquez on 09-24-2023 Monocytes/100 WBC (Bld) 5.6 % 0-10 [facility] Blood platelet mean volumeOr dered By: Boris Bojorquez on 09-24-2023 Platelet mean volume (Bld) [Entitic vol] 10.7 fL 6.2-12.0 [facility] Determination of erythrocyte mean corpuscular volume (MCV)Ordered By: Boris Bojorquez on 09-24-2023 MCV (RBC) [Entitic vol] 93.6 fL 80-94 [facility] Glucose Glucometer (BldC) [M ass/Vol]Ordered By: Boris Bojorquez on 09-24-2023 Glucose [Mass/Vol] 242 mg/dL 74-106 [facility] Hematocrit Auto (Bld) [Volum e fraction]Ordered By: Boris Bojorquez on 09-24-2023 Hematocrit (Bld) [Volume fraction] 35.0 % 40-54 [facility] MCHC Auto (RBC) [Mass/Vol]Or dered By: Boris Bojorquez on 09-24-2023 MCHC (RBC) [Mass/Vol] 32.0 g/dL 32-36 [facility] No Panel InformationOrdered By: Boris Bojorquez on 09-24-2023 29.9 pg 27.0-32.0 [facility] 15.0 % 11.6-14.6 [facility] 51.7 fl 35.1-43.9 [facility] 0.800 % 0.0-0.9 [facility] 0 % 0-5 [facility] 46 mL/min >60 [facility] 56 mL/min >60 [facility] 36.13 ml/min [facility] 20.6 RATIO 10-20 [facility] 26.0 mmol/L 21.0-32.0 [facility] Platelets bldOrdered By: Didier Bojorquez on 09-24-2023 Platelets (Bld) [#/Vol] 124 10*3/uL 150-450 [facility] Serum or plasma calcium amanda urement (mass/volume)Ordered By: Boris Bojorquez on 09-24-2023 Calcium [Mass/Vol] 8.9 mg/dL 8.5-10.1 [facility] Serum or plasma creatinine m easurement (mass/volume)Ordered By: Boris Bojorquez on 09-24-2023 Creatinine [Mass/Vol] 1.55 mg/dL 0.70-1.30 [facility] Serum or plasma urea nitroge n measurement (mass/volume)Ordered By: Boris Bojorquez on 09-24-2023 Urea nitrogen [Mass/Vol] 32 mg/dL 7-18 [facility] Thin prep Papanicolaou smear with manual screeningOrdered By: Boris Bojorquez on 09-24-2023 Thin prep Papanicolaou smear with manual screening 7 5-15 [facility] Bacteria identified Respirat ory culture Nom (Unsp spec)Ordered By: Drake Mason on 09-20-2023 Microbial respiratory culture Pseudomonas aeruginosa [facility] Microbial respiratory culture Pseudomonas aeruginosa [facility] Basophil percentageOrdered B y: Jonathan Lopez on 09-20-2023 Basophil percentage 176 mg/dL 74-106 [facility] Basophil percentage 141 mmol/L 136-145 [facility] Basophil percentage 3.5 mmol/L 3.5-5.1 [facility] Basophil percentage 109 mmol/L 98-107 [facility] Basophils (Bld) [#/Vol] 5.8 10*3/uL 4.4-11.0 [facility] Blood erythrocytes count (nu mber/volume)Ordered By: Jonathan Lopez on 09-20-2023 RBC (Bld) [#/Vol] 3.72 10*6/uL 4.6-6.2 [facility] Blood hemoglobin measurement (mass/volume)Ordered By: Jonathan Lopez on 09-20-2023 Hemoglobin (Bld) [Mass/Vol] 11.3 g/dL 13.0-16.5 [facility] Blood platelet mean volumeOr dered By: Jonathan Lopez on 09-20-2023 Platelet mean volume (Bld) [Entitic vol] 10.6 fL 6.2-12.0 [facility] Determination of erythrocyte mean corpuscular volume (MCV)Ordered By: Jonathan Lopez on 09-20-2023 MCV (RBC) [Entitic vol] 90.9 fL 80-94 [facility] Gram stain for investigation of transfusion reactionOrdered By: Drake Mason on 09-20-2023 Microscopic observation Gram stain Nom (Unsp spec) [facility] Microscopic observation Gram stain Nom (Unsp spec) [facility] Hematocrit Auto (Bld) [Volum e fraction]Ordered By: Jonathan Lopez on 09-20-2023 Hematocrit (Bld) [Volume fraction] 33.8 % 40-54 [facility] MCHC Auto (RBC) [Mass/Vol]Or dered By: Jonathan Lopez on 09-20-2023 MCHC (RBC) [Mass/Vol] 33.4 g/dL 32-36 [facility] No Panel InformationOrdered By: Jonathan Lopez on 09-20-2023 30.4 pg 27.0-32.0 [facility] 15.1 % 11.6-14.6 [facility] 50.2 fl 35.1-43.9 [facility] 53 mL/min >60 [facility] 64 mL/min >60 [facility] 40.88 ml/min [facility] 11.7 RATIO 10-20 [facility] 27.0 mmol/L 21.0-32.0 [facility] Platelets bldOrdered By: Luke Lopez on 09-20-2023 Platelets (Bld) [#/Vol] 123 10*3/uL 150-450 [facility] RSV Ag EIAOrdered By: Jonathan campbell on 09-20-2023 RSV Ag Immune stain Ql (Tiss) [facility] Serum or plasma calcium amanda urement (mass/volume)Ordered By: Jonathan Lopez on 09-20-2023 Calcium [Mass/Vol] 8.7 mg/dL 8.5-10.1 [facility] Serum or plasma creatinine m easurement (mass/volume)Ordered By: Jonathan Lopez on 09-20-2023 Creatinine [Mass/Vol] 1.37 mg/dL 0.70-1.30 [facility] Serum or plasma urea nitroge n measurement (mass/volume)Ordered By: Jonathan Lopez on 09-20-2023 Urea nitrogen [Mass/Vol] 16 mg/dL 7-18 [facility] Thin prep Papanicolaou smear with manual screeningOrdered By: Jonathan Lopez on 09-20-2023 Thin prep Papanicolaou smear with manual screening 5 5-15 [facility] Urine Legionella pneumophila antigen detectionOrdered By: Drake Mason on 09-20-2023 L. pneumophila Ag Ql (U) [facility] L. pneumophila Ag Ql (U) [facility] Basophil percentageOrdered B y: Juany Bellamy on 09-16-2023 Basophil percentage 2.4 mg/dL 2.5-4.9 [facility] Basophil percentage 170 mg/dL 74-106 [facility] Basophil percentage 140 mmol/L 136-145 [facility] Basophil percentage 3.6 mmol/L 3.5-5.1 [facility] Basophil percentage 107 mmol/L 98-107 [facility] Chloride [Moles/Vol] 107 mmol/L 98-107 [facility] Glucose [Mass/Vol] 170 mg/dL 74-106 [facility] Comment on above: Fasting Glucose resu lt greater than or equal to 126 mg/dL suggests DIABETES MELLITUS per A.D.A. criteria. Potassium [Moles/Vol] 3.6 mmol/L 3.5-5.1 [facility] Sodium [Moles/Vol] 140 mmol/L 136-145 [facility] Laboratory - Chemistry and C hemistry - challengeOrdered By: Juany Bellamy on 09-16-2023 CO2 [Moles/Vol] 27.0 mmol/L 21.0-32.0 [facility] Urea nitrogen/Creatinine [Mass ratio] 14.6 mg/mg 07-19 [facility] No Panel InformationOrdered By: Juany Bellamy on 09-16-2023 Estimated GFR (MDRD) Amer 69 mL/min >60 [facility] Comment on above: GFR Calc Estimated GFR (MDRD) Non-Af Amer 57 mL/min >60 [facility] Comment on above: Non- GFR Calc 57 mL/min >60 [facility] 69 mL/min >60 [facility] 14.6 RATIO 07-19 [facility] 27.0 mmol/L 21.0-32.0 [facility] Serum or plasma albumin amanda urement (mass/volume)Ordered By: Juany Bellamy on 09-16-2023 Albumin [Mass/Vol] 2.7 g/dL 3.2-5.0 [facility] Serum or plasma calcium amanda urement (mass/volume)Ordered By: Juany Bellamy on 09-16-2023 Calcium [Mass/Vol] 7.9 mg/dL 8.5-10.1 [facility] Serum or plasma creatinine m easurement (mass/volume)Ordered By: Juany Bellamy on 09-16-2023 Creatinine [Mass/Vol] 1.30 mg/dL 0.70-1.30 [facility] Comment on above: The validity of the calculated GFR & GFRAA in patients over 70 years has not been determined. Clinical correlation is essential. Serum or plasma urea nitroge n measurement (mass/volume)Ordered By: Juany Bellamy on 09-16-2023 Urea nitrogen [Mass/Vol] 19 mg/dL - [facility] Urine creatinine measurement (mass/volume)Ordered By: Juany Bellamy on 09-16-2023 Creatinine (U) [Mass/Vol] 111.00 mg/dL NO RANGE EST. [facility] Urine protein measurement (m ass/volume)Ordered By: Juany Bellamy on 09-16-2023 Protein (U) [Mass/Vol] 63.7 mg/dL 0.0-11.8 [facility] Urine protein/creatinine mas s ratioOrdered By: Juany Bellamy on 09-16-2023 Protein/Creatinine (U) [Mass ratio] 574 mg/g CRE 0-200 [facility] Absolute lymphocyte countOrd ered By: Laureano Lima on 09-05-2023 Lymphocytes Auto (Unsp spec) [#/Vol] 1.22 10*3/uL 0.83-4.51 [facility] Basophil percentageOrdered B y: Laureano Lima on 09-05-2023 Basophil percentage 4.8 mg/dL 2.5-4.9 [facility] Basophil percentage 199 mg/dL 74-106 [facility] Basophil percentage 139 mmol/L 136-145 [facility] Basophil percentage 3.7 mmol/L 3.5-5.1 [facility] Basophil percentage 105 mmol/L 98-107 [facility] Basophils (Bld) [#/Vol] 7.3 10*3/uL 4.4-11.0 [facility] Basophils (Bld) [#/Vol] 5.7 10*3/uL 2.0-7.7 [facility] Basophils/100 WBC (Bld) 0.1 % 0-1 [facility] Basophils/100 WBC (Bld) 77.9 % 47-70 [facility] Basophils/100 WBC (Bld) 0.0 % 0-5 [facility] Chloride [Moles/Vol] 105 mmol/L 98-107 [facility] Eosinophils/100 WBC (Bld) 0.0 % 0-5 [facility] Glucose [Mass/Vol] 199 mg/dL 74-106 [facility] Comment on above: Fasting Glucose resu lt greater than or equal to 126 mg/dL suggests DIABETES MELLITUS per A.D.A. criteria. Neutrophils (Bld) [#/Vol] 5.7 10*3/uL 2.0-7.7 [facility] Neutrophils/100 WBC (Bld) 77.9 % 47-70 [facility] Potassium [Moles/Vol] 3.7 mmol/L 3.5-5.1 [facility] Comment on above: Slight Hemolysis, Re sult may be falsely increased. Sodium [Moles/Vol] 139 mmol/L 136-145 [facility] WBC (Bld) [#/Vol] 7.3 10*3/uL 4.4-11.0 [facility] Blood erythrocytes count (nu mber/volume)Ordered By: Laureano Lima on 09-05-2023 RBC (Bld) [#/Vol] 4.22 10*6/uL 4.6-6.2 [facility] Blood hemoglobin measurement (mass/volume)Ordered By: Laureano Lima on 09-05-2023 Hemoglobin (Bld) [Mass/Vol] 12.7 g/dL 13.0-16.5 [facility] Blood lymphocytes/100 leukoc ytesOrdered By: Laureano Lima on 09-05-2023 Lymphocytes/100 WBC (Bld) 16.7 % 19-41 [facility] Blood monocytes/100 leukocyt esOrdered By: Laureano Lima on 09-05-2023 Monocytes/100 WBC (Bld) 4.6 % 0-10 [facility] Blood platelet mean volumeOr dered By: Laureano Lima on 09-05-2023 Platelet mean volume (Bld) [Entitic vol] 10.9 fL 6.2-12.0 [facility] Determination of erythrocyte mean corpuscular volume (MCV)Ordered By: Laureano Lima on 09-05-2023 MCV (RBC) [Entitic vol] 91.0 fL 80-94 [facility] Glucose Glucometer (BldC) [M ass/Vol]Ordered By: Laureano Lima on 09-05-2023 Glucose [Mass/Vol] 188 mg/dL 74-106 [facility] Comment on above: MANAGEMENT OF PATIEN T CARE PER NURSING PROTOCOL Hematocrit Auto (Bld) [Volum e fraction]Ordered By: Laureano Lima on 09-05-2023 Hematocrit (Bld) [Volume fraction] 38.4 % 40-54 [facility] Laboratory - Chemistry and C hemistry - challengeOrdered By: Laureano Lima on 09-05-2023 CO2 [Moles/Vol] 27.0 mmol/L 21.0-32.0 [facility] Magnesium [Mass/Vol] 2.1 mg/dL 1.6-2.6 [facility] Comment on above: Slight Hemolysis, Re sult may be falsely increased. Urea nitrogen/Creatinine [Mass ratio] 23.4 mg/mg 10-20 [facility] Laboratory - Hematology and Cell countsOrdered By: Laureano Lima on 09-05-2023 Erythrocyte distribution width (RBC) [Entitic vol] 49.4 fL 35.1-43.9 [facility] Erythrocyte distribution width (RBC) [Ratio] 14.8 % 11.6-14.6 [facility] Immature granulocytes/100 WBC (Bld) 0.700 % 0.0-0.9 [facility] Comment on above: IG% - Immature Granu locytes (promyelocytes, myelocytes and metamyelocytes) > 1% indicates that a LEFT SHIFT is Present. MCH (RBC) [Entitic mass] 30.1 pg 27.0-32.0 [facility] Nucleated RBC/100 WBC (Bld) [Ratio] 0 % 0-5 [facility] MCHC Auto (RBC) [Mass/Vol]Or dered By: Laureano Lima on 09-05-2023 MCHC (RBC) [Mass/Vol] 33.1 g/dL 32-36 [facility] No Panel InformationOrdered By: Laureano Lima on 09-05-2023 Estimated Creatinine Clearance Calc 36.36 ml/min [facility] Estimated GFR (MDRD) Amer 56 mL/min >60 [facility] Comment on above: GFR Calc Estimated GFR (MDRD) Non-Af Amer 47 mL/min >60 [facility] Comment on above: Non- GFR Calc 30.1 pg 27.0-32.0 [facility] 14.8 % 11.6-14.6 [facility] 49.4 fl 35.1-43.9 [facility] 0.700 % 0.0-0.9 [facility] 0 % 0-5 [facility] 47 mL/min >60 [facility] 56 mL/min >60 [facility] 36.36 ml/min [facility] 23.4 RATIO 10-20 [facility] 2.1 mg/dL 1.6-2.6 [facility] 27.0 mmol/L 21.0-32.0 [facility] Platelets bldOrdered By: Linwood Lima on 09-05-2023 Platelets (Bld) [#/Vol] 192 10*3/uL 150-450 [facility] Serum or plasma calcium amanda urement (mass/volume)Ordered By: Laureano Lima on 09-05-2023 Calcium [Mass/Vol] 8.6 mg/dL 8.5-10.1 [facility] Serum or plasma creatinine m easurement (mass/volume)Ordered By: Laureano Lima on 09-05-2023 Creatinine [Mass/Vol] 1.54 mg/dL 0.70-1.30 [facility] Comment on above: The validity of the calculated GFR & GFRAA in patients over 70 years has not been determined. Clinical correlation is essential. Serum or plasma urea nitroge n measurement (mass/volume)Ordered By: Laureano Lima on 09-05-2023 Urea nitrogen [Mass/Vol] 36 mg/dL 7-18 [facility] Thin prep Papanicolaou smear with manual screeningOrdered By: Laureano Lima on 09-05-2023 Thin prep Papanicolaou smear with manual screening 7 5-15 [facility] Assessment of wrist artery p atency prior to arterial punctureOrdered By: Mauricio Soto on 09-04-2023 Arterial patency Wrist artery --pre arterial puncture Positive [facility] Base excessOrdered By: Magraret Soto on 09-04-2023 Base excess Calc (BldV) [Moles/Vol] 2 mmol/L -2-2 [facility] Basophil percentageOrdered B y: Mauricio Soto on 09-04-2023 Basophil percentage 26.1 mmol/L 22-26 [facility] Basophils/100 WBC (Bld) 89 % 95-99 [facility] CO2 (BldA) [Partial pressure ]Ordered By: Mauricio Soto on 09-04-2023 CO2 (Bld) [Partial pressure] 38.2 mm[Hg] 35-45 [facility] No Panel InformationOrdered By: Mauricio Soto on 09-04-2023 Blood Gas Oxygen Percent 21.0 [facility] Blood Gas Sample Site L Radial [facility] Blood Gas Specimen Type ART [facility] Blood Gas Total CO2 27 mmol/L [facility] Blood Gas Vent Mode Not entered [facility] Oxygen Delivery Device Room Air [facility] ART [facility] L Radial [facility] Not entered [facility] Room Air [facility] 21.0 [facility] 27 mmol/L [facility] Oxygen (BldA) [Partial press ure]Ordered By: Mauricio Soto on 09-04-2023 Oxygen (Bld) [Partial pressure] 55 mmHG 75-100 [facility] Whole blood hemoglobin A1c/t otal hemoglobin ratio (mass fraction)Ordered By: Laureano Jennings on 09-04-2023 HbA1c (Bld) [Mass fraction] 6.5 % 3.8-5.6 [facility] Comment on above: Normal < 5.7 % Predi abetic 5.7 - 6.4 % Diabetic >or= 6.5 % Please note range changes. pH measurementOrdered By: Zunilda Soto on 09-04-2023 pH (Unsp spec) 7.44 [pH] 7.35-7.45 [facility] Absolute lymphocyte countOrd ered By: Mauricio Soto on 09-03-2023 Lymphocytes Auto (Unsp spec) [#/Vol] 1.35 10*3/uL 0.83-4.51 [facility] Basophil percentageOrdered B y: Mauricio Soto on 09-03-2023 Basophils/100 WBC (Bld) 0.4 % 0-1 [facility] Chloride [Moles/Vol] 105 mmol/L 98-107 [facility] Eosinophils/100 WBC (Bld) 0.0 % 0-5 [facility] Glucose [Mass/Vol] 184 mg/dL 74-106 [facility] Comment on above: Fasting Glucose resu lt greater than or equal to 126 mg/dL suggests DIABETES MELLITUS per A.D.A. criteria. Neutrophils (Bld) [#/Vol] 3.2 10*3/uL 2.0-7.7 [facility] Neutrophils/100 WBC (Bld) 60.4 % 47-70 [facility] Potassium [Moles/Vol] 3.7 mmol/L 3.5-5.1 [facility] Sodium [Moles/Vol] 138 mmol/L 136-145 [facility] WBC (Bld) [#/Vol] 5.3 10*3/uL 4.4-11.0 [facility] Blood erythrocytes count (nu mber/volume)Ordered By: Mauricio Soto on 09-03-2023 RBC (Bld) [#/Vol] 4.25 10*6/uL 4.6-6.2 [facility] Blood hemoglobin measurement (mass/volume)Ordered By: Mauricio Soto on 09-03-2023 Hemoglobin (Bld) [Mass/Vol] 12.9 g/dL 13.0-16.5 [facility] Blood lymphocytes/100 leukoc ytesOrdered By: Mauricio Soto on 09-03-2023 Lymphocytes/100 WBC (Bld) 25.6 % 19-41 [facility] Blood monocytes/100 leukocyt esOrdered By: Mauricio Soto on 09-03-2023 Monocytes/100 WBC (Bld) 11.9 % 0-10 [facility] Blood platelet mean volumeOr dered By: Mauricio Soto on 09-03-2023 Platelet mean volume (Bld) [Entitic vol] 11.1 fL 6.2-12.0 [facility] Determination of erythrocyte mean corpuscular volume (MCV)Ordered By: Mauricio Soto on 09-03-2023 MCV (RBC) [Entitic vol] 92.0 fL 80-94 [facility] Hematocrit Auto (Bld) [Volum e fraction]Ordered By: Mauricio Soto on 09-03-2023 Hematocrit (Bld) [Volume fraction] 39.1 % 40-54 [facility] Influenza virus A and B and SARS-CoV-2 (COVID-19) Ag panel - Upper respiratory specimOrdered By: Mauricio Soto on 09-03-2023 SARS-CoV-2 & FLU Antigen (Rapid) SARS-CoV-2 (COVID 19) [facility] Influenza virus A and B and SARS-CoV-2 (COVID-19) Ag panel - Upper respiratory specim SARS-CoV-2 (COVID 19) [facility] Laboratory - Chemistry and C hemistry - challengeOrdered By: Mauricio Soto on 09-03-2023 CO2 [Moles/Vol] 26.0 mmol/L 21.0-32.0 [facility] Magnesium [Mass/Vol] 2.2 mg/dL 1.6-2.6 [facility] Natriuretic peptide B (Bld) [Mass/Vol] 65.2 pg/mL 0-100 [facility] Urea nitrogen/Creatinine [Mass ratio] 15.7 mg/mg 10-20 [facility] Laboratory - Hematology and Cell countsOrdered By: Mauricio Soto on 09-03-2023 Erythrocyte distribution width (RBC) [Entitic vol] 50.4 fL 35.1-43.9 [facility] Erythrocyte distribution width (RBC) [Ratio] 14.8 % 11.6-14.6 [facility] Immature granulocytes/100 WBC (Bld) 1.700 % 0.0-0.9 [facility] Comment on above: IG% - Immature Granu locytes (promyelocytes, myelocytes and metamyelocytes) > 1% indicates that a LEFT SHIFT is Present. MCH (RBC) [Entitic mass] 30.4 pg 27.0-32.0 [facility] Nucleated RBC/100 WBC (Bld) [Ratio] 0 % 0-5 [facility] MCHC Auto (RBC) [Mass/Vol]Or dered By: Mauricio Soto on 09-03-2023 MCHC (RBC) [Mass/Vol] 33.0 g/dL 32-36 [facility] No Panel InformationOrdered By: Mauricio Soto on 09-03-2023 Estimated Creatinine Clearance Calc 35.33 ml/min [facility] Estimated GFR (MDRD) Amer 57 mL/min >60 [facility] Comment on above: GFR Calc Estimated GFR (MDRD) Non-Af Amer 47 mL/min >60 [facility] Comment on above: Non- GFR Calc 65.2 pg/mL 0-100 [facility] Platelets bldOrdered By: Mina Soto on 09-03-2023 Platelets (Bld) [#/Vol] 191 10*3/uL 150-450 [facility] Serum or plasma calcium amanda urement (mass/volume)Ordered By: Mauricio Soto on 09-03-2023 Calcium [Mass/Vol] 8.8 mg/dL 8.5-10.1 [facility] Serum or plasma creatinine m easurement (mass/volume)Ordered By: Mauricio Soto on 09-03-2023 Creatinine [Mass/Vol] 1.53 mg/dL 0.70-1.30 [facility] Comment on above: The validity of the calculated GFR & GFRAA in patients over 70 years has not been determined. Clinical correlation is essential. Serum or plasma urea nitroge n measurement (mass/volume)Ordered By: Mauricio Soto on 09-03-2023 Urea nitrogen [Mass/Vol] 24 mg/dL 7-18 [facility] Thin prep Papanicolaou smear with manual screeningOrdered By: Mauricio Soto on 09-03-2023 Thin prep Papanicolaou smear with manual screening 7 5-15 [facility] Upper respiratory specimen i nfluenza A virus, influenza B virus, and severe acute resOrdered By: Mauricio Soto on 09-03-2023 Upper respiratory specimen influenza A virus, influenza B virus, and severe acute res SARS-CoV-2 (COVID 19) [facility] Basophil percentageOrdered B y: Keo Montemayor on 08-29-2023 Basophil percentage < 1.0 mg/dL 0.70-1.30 [facility] No Panel InformationOrdered By: Keo Montemayor on 08-29-2023 Bedside Estimated GFR (eGFR) > 60.0000 mL/min >60 [facility] > 60.0000 mL/min >60 [facility] Glucose Glucometer (BldC) [M ass/Vol]Ordered By: Surinder Larson on 08-07-2023 Glucose [Mass/Vol] 110 mg/dL 74-106 [facility] Comment on above: MANAGEMENT OF PATIEN T CARE PER NURSING PROTOCOL Basophil percentageOrdered B y: Surinder Larson on 05-30-2023 Basophil percentage 1.3 mg/dL 0.70-1.30 [facility] Creatinine [Mass/Vol] 1.3 mg/dL 0.70-1.30 [facility] Laboratory - Chemistry and C hemistry - challengeOrdered By: Surinder Larson on 05-30-2023 GFR/1.73 sq M.predicted among non-blacks MDRD (S/P/Bld) [Vol rate/Area] 56.0000 mL/min/{1.73_m2} >60 [facility] No Panel InformationOrdered By: Surinder Larson on 05-30-2023 56.0000 mL/min >60 [facility] No Panel InformationOrdered By: Surinder Larson on 04-16-2023 Prostate Specific Antigen Total 11.30 ng/mL 0.0-4.0 [facility] Comment on above: This test was perfor med using the TPSA assay method for the[facility] system. Values obtained with differentassay methods cannot be used interchangably.When changing PSA assays in the course of monitoring apatient, additional sequential testing should be carriedout to confirm baseline values. Absolute lymphocyte countOrd ered By: Marycruz Yen on 04-01-2023 Lymphocytes Auto (Unsp spec) [#/Vol] 1.48 10*3/uL 0.83-4.51 [facility] Basophil percentageOrdered B y: Marycruz Yen on 04-01-2023 Basophils/100 WBC (Bld) 0.1 % 0-1 [facility] Bilirubin [Mass/Vol] 0.30 mg/dL 0.20-1.00 [facility] Comment on above: For patients on eltr ombopag therapy, use of Dimension [place] TBIL is not recommended. Chloride [Moles/Vol] 109 mmol/L 98-107 [facility] Eosinophils/100 WBC (Bld) 2.4 % 0-5 [facility] Glucose [Mass/Vol] 181 mg/dL 74-106 [facility] Comment on above: Fasting Glucose resu lt greater than or equal to 126 mg/dL suggests DIABETES MELLITUS per A.D.A. criteria. Neutrophils (Bld) [#/Vol] 4.8 10*3/uL 2.0-7.7 [facility] Neutrophils/100 WBC (Bld) 66.9 % 47-70 [facility] Potassium [Moles/Vol] 3.7 mmol/L 3.5-5.1 [facility] Protein [Mass/Vol] 6.5 g/dL 6.4-8.2 [facility] Sodium [Moles/Vol] 140 mmol/L 136-145 [facility] WBC (Bld) [#/Vol] 7.1 10*3/uL 4.4-11.0 [facility] Blood erythrocytes count (nu mber/volume)Ordered By: Marycruz Yen on 04-01-2023 RBC (Bld) [#/Vol] 4.27 10*6/uL 4.6-6.2 [facility] Blood hemoglobin measurement (mass/volume)Ordered By: Marycruz Yen on 04-01-2023 Hemoglobin (Bld) [Mass/Vol] 13.0 g/dL 13.0-16.5 [facility] Blood lymphocytes/100 leukoc ytesOrdered By: Marycruz Yen on 04-01-2023 Lymphocytes/100 WBC (Bld) 20.8 % 19-41 [facility] Blood monocytes/100 leukocyt esOrdered By: Marycruz Yen on 04-01-2023 Monocytes/100 WBC (Bld) 9.4 % 0-10 [facility] Blood platelet mean volumeOr dered By: Marycruz Yen on 04-01-2023 Platelet mean volume (Bld) [Entitic vol] 11.5 fL 6.2-12.0 [facility] Determination of erythrocyte mean corpuscular volume (MCV)Ordered By: Marycruz Yen on 04-01-2023 MCV (RBC) [Entitic vol] 94.8 fL 80-94 [facility] Hematocrit Auto (Bld) [Volum e fraction]Ordered By: Marycruz Yen on 04-01-2023 Hematocrit (Bld) [Volume fraction] 40.5 % 40-54 [facility] Laboratory - Chemistry and C hemistry - challengeOrdered By: Marycruz Yen on 04-01-2023 ALP [Catalytic activity/Vol] 48 U/L 45-117 [facility] ALT [Catalytic activity/Vol] 69 U/L 16-61 [facility] CO2 [Moles/Vol] 26.0 mmol/L 21.0-32.0 [facility] Globulin (S) [Mass/Vol] 3.6 g/dL 2.2-4.2 [facility] Urea nitrogen/Creatinine [Mass ratio] 17.7 mg/mg 10-20 [facility] Laboratory - Hematology and Cell countsOrdered By: Marycruz Yen on 04-01-2023 Erythrocyte distribution width (RBC) [Entitic vol] 55.5 fL 35.1-43.9 [facility] Erythrocyte distribution width (RBC) [Ratio] 16.0 % 11.6-14.6 [facility] Immature granulocytes/100 WBC (Bld) 0.400 % 0.0-0.9 [facility] Comment on above: IG% - Immature Granu locytes (promyelocytes, myelocytes and metamyelocytes) > 1% indicates that a LEFT SHIFT is Present. MCH (RBC) [Entitic mass] 30.4 pg 27.0-32.0 [facility] Nucleated RBC/100 WBC (Bld) [Ratio] 0 % 0-5 [facility] MCHC Auto (RBC) [Mass/Vol]Or dered By: Marycruz Yen on 04-01-2023 MCHC (RBC) [Mass/Vol] 32.1 g/dL 32-36 [facility] No Panel InformationOrdered By: Marycruz Yen on 04-01-2023 Estimated GFR (MDRD) Amer 60 mL/min >60 [facility] Comment on above: GFR Calc Estimated GFR (MDRD) Non-Af Amer 49 mL/min >60 [facility] Comment on above: Non- GFR Calc Platelets bldOrdered By: Jamir Yen on 04-01-2023 Platelets (Bld) [#/Vol] 150 10*3/uL 150-450 [facility] Serum or plasma albumin amanda urement (mass/volume)Ordered By: Marycruz Yen on 04-01-2023 Albumin [Mass/Vol] 2.9 g/dL 3.2-5.0 [facility] Serum or plasma albumin/glob ulin mass ratioOrdered By: Marycruz Yen on 04-01-2023 Albumin/Globulin [Mass ratio] 0.8 {ratio} 0.9-2.4 [facility] Serum or plasma calcium amanda urement (mass/volume)Ordered By: Marycruz Yen on 04-01-2023 Calcium [Mass/Vol] 8.5 mg/dL 8.5-10.1 [facility] Serum or plasma creatinine m easurement (mass/volume)Ordered By: Marycruz Yen on 04-01-2023 Creatinine [Mass/Vol] 1.47 mg/dL 0.70-1.30 [facility] Comment on above: The validity of the calculated GFR & GFRAA in patients over 70 years has not been determined. Clinical correlation is essential. Serum or plasma urea nitroge n measurement (mass/volume)Ordered By: Marycruz Yen on 04-01-2023 Urea nitrogen [Mass/Vol] 26 mg/dL 7-18 [facility] Serum or plasma uric acid me asurement (mass/volume)Ordered By: Marycruz Yen on 04-01-2023 Urate [Mass/Vol] 5.0 mg/dL 3.5-7.2 [facility] Comment on above: The drugs N-Acetylcy steine and Metamizole may falsely depress this assay. Thin prep Papanicolaou smear with manual screeningOrdered By: Marycruz Yen on 04-01-2023 Thin prep Papanicolaou smear with manual screening 23 U/L 15-37 [facility] Thin prep Papanicolaou smear with manual screening 5 5-15 [facility] Absolute lymphocyte countOrd ered By: Dr. Bojorquez on 03-26-2023 Lymphocytes Auto (Unsp spec) [#/Vol] 1.79 10*3/uL 0.83-4.51 [facility] Basophil percentageOrdered B y: Dr. Bojorquez on 03-26-2023 Basophils/100 WBC (Bld) 0.1 % 0-1 [facility] Chloride [Moles/Vol] 109 mmol/L 98-107 [facility] Eosinophils/100 WBC (Bld) 0.0 % 0-5 [facility] Glucose [Mass/Vol] 151 mg/dL 74-106 [facility] Comment on above: Fasting Glucose resu lt greater than or equal to 126 mg/dL suggests DIABETES MELLITUS per A.D.A. criteria. Neutrophils (Bld) [#/Vol] 8.2 10*3/uL 2.0-7.7 [facility] Neutrophils/100 WBC (Bld) 76.0 % 47-70 [facility] Potassium [Moles/Vol] 3.3 mmol/L 3.5-5.1 [facility] Sodium [Moles/Vol] 141 mmol/L 136-145 [facility] WBC (Bld) [#/Vol] 10.7 10*3/uL 4.4-11.0 [facility] Blood erythrocytes count (nu mber/volume)Ordered By: Dr. Bojorquez on 03-26-2023 RBC (Bld) [#/Vol] 4.15 10*6/uL 4.6-6.2 [facility] Blood hemoglobin measurement (mass/volume)Ordered By: Dr. Bojorquez on 03-26-2023 Hemoglobin (Bld) [Mass/Vol] 12.8 g/dL 13.0-16.5 [facility] Blood lymphocytes/100 leukoc ytesOrdered By: Dr. Bojorquez on 03-26-2023 Lymphocytes/100 WBC (Bld) 16.7 % 19-41 [facility] Blood monocytes/100 leukocyt esOrdered By: Dr. Bojorquez on 03-26-2023 Monocytes/100 WBC (Bld) 6.8 % 0-10 [facility] Blood platelet mean volumeOr dered By: Dr. Bojorquez on 03-26-2023 Platelet mean volume (Bld) [Entitic vol] 10.0 fL 6.2-12.0 [facility] Determination of erythrocyte mean corpuscular volume (MCV)Ordered By: Dr. Bojorquez on 03-26-2023 MCV (RBC) [Entitic vol] 91.6 fL 80-94 [facility] Glucose Glucometer (BldC) [M ass/Vol]Ordered By: Dr. Bojorquez on 03-26-2023 Glucose [Mass/Vol] 185 mg/dL 74-106 [facility] Comment on above: MANAGEMENT OF PATIEN T CARE PER NURSING PROTOCOL Hematocrit Auto (Bld) [Volum e fraction]Ordered By: Dr. Bojorquez on 03-26-2023 Hematocrit (Bld) [Volume fraction] 38.0 % 40-54 [facility] Laboratory - Chemistry and C hemistry - challengeOrdered By: Dr. Bojorquez on 03-26-2023 CO2 [Moles/Vol] 26.0 mmol/L 21.0-32.0 [facility] Urea nitrogen/Creatinine [Mass ratio] 27.1 mg/mg 10-20 [facility] Laboratory - Hematology and Cell countsOrdered By: Dr. Bojorquez on 03-26-2023 Erythrocyte distribution width (RBC) [Entitic vol] 50.9 fL 35.1-43.9 [facility] Erythrocyte distribution width (RBC) [Ratio] 15.3 % 11.6-14.6 [facility] Immature granulocytes/100 WBC (Bld) 0.400 % 0.0-0.9 [facility] Comment on above: IG% - Immature Granu locytes (promyelocytes, myelocytes and metamyelocytes) > 1% indicates that a LEFT SHIFT is Present. MCH (RBC) [Entitic mass] 30.8 pg 27.0-32.0 [facility] Nucleated RBC/100 WBC (Bld) [Ratio] 0 % 0-5 [facility] MCHC Auto (RBC) [Mass/Vol]Or dered By: Dr. Bojorquez on 03-26-2023 MCHC (RBC) [Mass/Vol] 33.7 g/dL 32-36 [facility] No Panel InformationOrdered By: Dr. Bojorquez on 03-26-2023 Estimated Creatinine Clearance Calc 36.72 ml/min [facility] Estimated GFR (MDRD) Amer 56 mL/min >60 [facility] Comment on above: GFR Calc Estimated GFR (MDRD) Non-Af Amer 46 mL/min >60 [facility] Comment on above: Non- GFR Calc Platelets bldOrdered By: Dr. Bojorquez on 03-26-2023 Platelets (Bld) [#/Vol] 182 10*3/uL 150-450 [facility] Serum or plasma calcium amanda urement (mass/volume)Ordered By: Dr. Bojorquez on 03-26-2023 Calcium [Mass/Vol] 8.5 mg/dL 8.5-10.1 [facility] Serum or plasma creatinine m easurement (mass/volume)Ordered By: Dr. Bojorquez on 03-26-2023 Creatinine [Mass/Vol] 1.55 mg/dL 0.70-1.30 [facility] Comment on above: The validity of the calculated GFR & GFRAA in patients over 70 years has not been determined. Clinical correlation is essential. Serum or plasma urea nitroge n measurement (mass/volume)Ordered By: Dr. Bojorquez on 03-26-2023 Urea nitrogen [Mass/Vol] 42 mg/dL 7-18 [facility] Thin prep Papanicolaou smear with manual screeningOrdered By: Dr. Bojorquez on 03-26-2023 Thin prep Papanicolaou smear with manual screening 6 5-15 [facility] Vancomycin troughOrdered By: Dr. Ferreira on 03-23-2023 Vancomycin trough [Mass/Vol] 14.3 ug/mL 5.0-15.0 [facility] Comment on above: VANCOMYCIN STANDARED DRUG THERAPY TROUGH LEVEL: 5.0 - 15.0 mg/L VANCOMYCIN HIGH INTENSITY THERAPY TROUGH LEVEL: 15.0 - 20.0 mg/L High Intensity therapy recommended for serious lifethreatening infections include:- Ogrnzwnfni-Uvapmwcemlzx-Ipjvfapvy (Ventilator/Healtcare Associated)-Sepsis PLEASE CONTACT PHARMACY SERVICES (#[id number]) FOR INTERPRETATIONOF RESULTS. Gram stain for investigation of transfusion reactionOrdered By: Dr. Ferreira on 03-22-2023 Microscopic observation Gram stain Nom (Unsp spec) [facility] No Panel InformationOrdered By: Dr. Ferreira on 03-22-2023 Methicillin-Resist S.aureus DNA PCR Negative Negative [facility] Respiratory pathogens detect ion panel by molecular detection methodOrdered By: Dr. Ferreira on 03-22-2023 Respiratory pathogens DNA and RNA panel IRINA+probe (Resp) [facility] Bacteria identified Respirat ory culture Nom (Unsp spec)Ordered By: Pedro Ferreira on 03-21-2023 Respiratory Culture Pseudomonas aeruginosa [facility] Gram stain for investigation of transfusion reactionOrdered By: Pedro Ferreira on 03-21-2023 Microscopic observation Gram stain Nom (Unsp spec) [facility] Laboratory - Chemistry and C hemistry - challengeOrdered By: Dr. Sullivan on 03-21-2023 Natriuretic peptide B (Bld) [Mass/Vol] 118.7 pg/mL 0-100 [facility] No Panel InformationOrdered By: Pedro Ferreira on 03-21-2023 Streptococcus pneumoniae Antigen ([facility] No Panel InformationOrdered By: Dr. Sullivan on 03-21-2023 Troponin I High Sensitivity 22 pg/mL 3.0-78.0 [facility] Comment on above: Please Note: New Vira t Units and Gender Specific Reference Ranges. For more information see Policy Stat Procedure [place] High Sensitivity Troponin (TNIH) and attachments. No Panel InformationOrdered By: Dr. Ferreira on 03-21-2023 Streptococcus pneumoniae Antigen ([facility] Respiratory pathogens detect ion panel by molecular detection methodOrdered By: Pedro Ferreira on 03-21-2023 Respiratory pathogens DNA and RNA panel IRINA+probe (Resp) [facility] Absolute lymphocyte countOrd ered By: Dr. Yen on 01-03-2023 Lymphocytes Auto (Unsp spec) [#/Vol] 2.62 10*3/uL 0.83-4.51 [facility] Basophil percentageOrdered B y: Dr. Yen on 01-03-2023 Basophils/100 WBC (Bld) 0.6 % 0-1 [facility] Bilirubin [Mass/Vol] 0.50 mg/dL 0.20-1.00 [facility] Comment on above: For patients on eltr ombopag therapy, use of Dimension [place] TBIL is not recommended. Chloride [Moles/Vol] 109 mmol/L 98-107 [facility] Eosinophils/100 WBC (Bld) 4.2 % 0-5 [facility] Glucose [Mass/Vol] 138 mg/dL 74-106 [facility] Comment on above: Fasting Glucose resu lt greater than or equal to 126 mg/dL suggests DIABETES MELLITUS per A.D.A. criteria. Neutrophils (Bld) [#/Vol] 2.9 10*3/uL 2.0-7.7 [facility] Neutrophils/100 WBC (Bld) 44.7 % 47-70 [facility] Potassium [Moles/Vol] 3.6 mmol/L 3.5-5.1 [facility] Protein [Mass/Vol] 7.0 g/dL 6.4-8.2 [facility] Sodium [Moles/Vol] 142 mmol/L 136-145 [facility] WBC (Bld) [#/Vol] 6.5 10*3/uL 4.4-11.0 [facility] Blood erythrocytes count (nu mber/volume)Ordered By: Dr. Yen on 01-03-2023 RBC (Bld) [#/Vol] 4.04 10*6/uL 4.6-6.2 [facility] Blood hemoglobin measurement (mass/volume)Ordered By: Dr. Yen on 01-03-2023 Hemoglobin (Bld) [Mass/Vol] 12.9 g/dL 13.0-16.5 [facility] Blood lymphocytes/100 leukoc ytesOrdered By: Dr. Yen on 01-03-2023 Lymphocytes/100 WBC (Bld) 40.5 % 19-41 [facility] Blood monocytes/100 leukocyt esOrdered By: Dr. Yen on 01-03-2023 Monocytes/100 WBC (Bld) 9.7 % 0-10 [facility] Blood platelet mean volumeOr dered By: Dr. Yen on 01-03-2023 Platelet mean volume (Bld) [Entitic vol] 10.9 fL 6.2-12.0 [facility] Determination of erythrocyte mean corpuscular volume (MCV)Ordered By: Dr. Yen on 01-03-2023 MCV (RBC) [Entitic vol] 95.3 fL 80-94 [facility] Hematocrit Auto (Bld) [Volum e fraction]Ordered By: Dr. Yen on 01-03-2023 Hematocrit (Bld) [Volume fraction] 38.5 % 40-54 [facility] Laboratory - Chemistry and C hemistry - challengeOrdered By: Dr. Yen on 01-03-2023 ALP [Catalytic activity/Vol] 52 U/L 45-117 [facility] ALT [Catalytic activity/Vol] 39 U/L 16-61 [facility] CO2 [Moles/Vol] 26.0 mmol/L 21.0-32.0 [facility] Globulin (S) [Mass/Vol] 3.5 g/dL 2.2-4.2 [facility] Urea nitrogen/Creatinine [Mass ratio] 12.6 mg/mg 10-20 [facility] Laboratory - Hematology and Cell countsOrdered By: Dr. Yen on 01-03-2023 Erythrocyte distribution width (RBC) [Entitic vol] 56.0 fL 35.1-43.9 [facility] Erythrocyte distribution width (RBC) [Ratio] 15.9 % 11.6-14.6 [facility] Immature granulocytes/100 WBC (Bld) 0.300 % 0.0-0.9 [facility] Comment on above: IG% - Immature Granu locytes (promyelocytes, myelocytes and metamyelocytes) > 1% indicates that a LEFT SHIFT is Present. MCH (RBC) [Entitic mass] 31.9 pg 27.0-32.0 [facility] Nucleated RBC/100 WBC (Bld) [Ratio] 0 % 0-5 [facility] MCHC Auto (RBC) [Mass/Vol]Or dered By: Dr. Yen on 01-03-2023 MCHC (RBC) [Mass/Vol] 33.5 g/dL 32-36 [facility] No Panel InformationOrdered By: Dr. Yen on 01-03-2023 Estimated GFR (MDRD) Amer 54 mL/min >60 [facility] Comment on above: GFR Calc Estimated GFR (MDRD) Non-Af Amer 45 mL/min >60 [facility] Comment on above: Non- GFR Calc Platelets bldOrdered By: Dr. Yen on 01-03-2023 Platelets (Bld) [#/Vol] 174 10*3/uL 150-450 [facility] Serum or plasma albumin amanda urement (mass/volume)Ordered By: Dr. Yen on 01-03-2023 Albumin [Mass/Vol] 3.5 g/dL 3.2-5.0 [facility] Serum or plasma albumin/glob ulin mass ratioOrdered By: Dr. Yen on 01-03-2023 Albumin/Globulin [Mass ratio] 1.0 {ratio} 0.9-2.4 [facility] Serum or plasma calcium amanda urement (mass/volume)Ordered By: Dr. Yen on 01-03-2023 Calcium [Mass/Vol] 8.8 mg/dL 8.5-10.1 [facility] Serum or plasma creatinine m easurement (mass/volume)Ordered By: Dr. Yen on 01-03-2023 Creatinine [Mass/Vol] 1.59 mg/dL 0.70-1.30 [facility] [facility] Comment on above: The validity of the calculated GFR & GFRAA in patients over 70 years has not been determined. Clinical correlation is essential. Serum or plasma urea nitroge n measurement (mass/volume)Ordered By: Dr. Yen on 01-03-2023 Urea nitrogen [Mass/Vol] 20 mg/dL 7-18 [facility] Serum or plasma uric acid me asurement (mass/volume)Ordered By: Dr. Yen on 01-03-2023 Urate [Mass/Vol] 7.8 mg/dL 3.5-7.2 [facility] Comment on above: The drugs N-Acetylcy steine and Metamizole may falsely depress this assay. Thin prep Papanicolaou smear with manual screeningOrdered By: Dr. Yen on 01-03-2023 Thin prep Papanicolaou smear with manual screening 32 U/L 15-37 [facility] Thin prep Papanicolaou smear with manual screening 7 5-15 [facility] Basophil percentageOrdered B y: Dr. Bellamy on 12-20-2022 Basophil percentage 196 mg/dL 74-106 [facility] Basophil percentage 2.2 mg/dL 2.5-4.9 [facility] Basophil percentage 145 mmol/L 136-145 [facility] Basophil percentage 3.7 mmol/L 3.5-5.1 [facility] Basophil percentage 109 mmol/L 98-107 [facility] Chloride [Moles/Vol] 109 mmol/L 98-107 [facility] Glucose [Mass/Vol] 196 mg/dL 74-106 [facility] Comment on above: Fasting Glucose resu lt greater than or equal to 126 mg/dL suggests DIABETES MELLITUS per A.D.A. criteria. Potassium [Moles/Vol] 3.7 mmol/L 3.5-5.1 [facility] Sodium [Moles/Vol] 145 mmol/L 136-145 [facility] Laboratory - Chemistry and C hemistry - challengeOrdered By: Dr. Bellamy on 12-20-2022 CO2 [Moles/Vol] 26.0 mmol/L 21.0-32.0 [facility] Urea nitrogen/Creatinine [Mass ratio] 13.1 mg/mg 10-20 [facility] No Panel InformationOrdered By: Dr. Bellamy on 12-20-2022 Estimated GFR (MDRD) Amer 61 mL/min >60 [facility] Comment on above: GFR Calc Estimated GFR (MDRD) Non-Af Amer 50 mL/min >60 [facility] Comment on above: Non- GFR Calc 50 mL/min >60 [facility] 61 mL/min >60 [facility] 13.1 RATIO 10-20 [facility] 26.0 mmol/L 21.0-32.0 [facility] Serum or plasma albumin amanda urement (mass/volume)Ordered By: Dr. Bellamy on 12-20-2022 Albumin [Mass/Vol] 3.3 g/dL 3.2-5.0 [facility] Serum or plasma calcium amanda urement (mass/volume)Ordered By: Dr. Bellamy on 12-20-2022 Calcium [Mass/Vol] 8.4 mg/dL 8.5-10.1 [facility] Serum or plasma creatinine m easurement (mass/volume)Ordered By: Dr. Bellamy on 12-20-2022 Creatinine [Mass/Vol] 1.45 mg/dL 0.70-1.30 [facility] Comment on above: The validity of the calculated GFR & GFRAA in patients over 70 years has not been determined. Clinical correlation is essential. Serum or plasma urea nitroge n measurement (mass/volume)Ordered By: Dr. Bellamy on 12-20-2022 Urea nitrogen [Mass/Vol] 19 mg/dL 7-18 [facility] Urine creatinine measurement (mass/volume)Ordered By: Dr. Bellamy on 12-20-2022 Creatinine (U) [Mass/Vol] 308.00 mg/dL NO RANGE EST. [facility] Urine protein measurement (m ass/volume)Ordered By: Dr. Bellamy on 12-20-2022 Protein (U) [Mass/Vol] 110.0 mg/dL 0.0-11.8 [facility] Urine protein/creatinine mas s ratioOrdered By: Dr. Bellamy on 12-20-2022 Protein/Creatinine (U) [Mass ratio] 357 mg/g CRE 0-200 [facility] Qualitative QuantiFERON-TB g old in tube testOrdered By: Dr. Yen on 11-09-2022 M. tuberculosis tuberculin stim IFN-g Ql (Bld) 0.13 IU/mL . [facility] Thin prep Papanicolaou smear with manual screeningOrdered By: Dr. Yen on 11-09-2022 Thin prep Papanicolaou smear with manual screening Comment . [facility] Comment on above: QuantiFERON-TB Gold Plus is a qualitative indirect test forM tuberculosis infection (including disease) and isintended for use in conjunction with risk assessment,radiography, and other medical and diagnostic evaluations.The QuantiFERON-TB Gold Plus result is determined bysubtracting the Nil value from either TB antigen (Ag)value. The Mitogen tube serves as a control for the test. Thin prep Papanicolaou smear with manual screening 0.13 IU/mL . [facility] Thin prep Papanicolaou smear with manual screening 0.16 IU/mL . [facility] Thin prep Papanicolaou smear with manual screening > 10.00 IU/mL . [facility] Thin prep Papanicolaou smear with manual screening Negative Negative [facility] Comment on above: No response to M tub erculosis antigens detected.Infection with M tuberculosis is unlikely, but high riskindividuals should be considered for additional testing(ATS/IDSA/CDC Clinical Practice Guidelines, 2017). Thereference range is an Antigen minus Nil result of <0.35IU/mL.The specimen received for QuantiFERON testing was incubatedby the ordering institution. Specific procedures outlinedin our Directory of Services and in the package insert forthe QuantiFERON Gold (In Tube) test must be followed toenable for proper stimulation of cells for the productionof interferon gamma. Chemiluminescence immunoassaymethodologyPerformed at: [facility] [id number] Director: Leander Boo PhD, Phone: [phone] Absolute lymphocyte countOrd ered By: Dr. Yen on 11-08-2022 Lymphocytes Auto (Unsp spec) [#/Vol] 1.96 10*3/uL 0.83-4.51 [facility] Basophil percentageOrdered B y: Dr. Yen on 11-08-2022 Basophil percentage 169 mg/dL 74-106 [facility] Basophil percentage 7.2 g/dL 6.4-8.2 [facility] Basophil percentage 0.50 mg/dL 0.20-1.00 [facility] Basophil percentage 142 mmol/L 136-145 [facility] Basophil percentage 3.8 mmol/L 3.5-5.1 [facility] Basophil percentage 108 mmol/L 98-107 [facility] Basophils (Bld) [#/Vol] 6.5 10*3/uL 4.4-11.0 [facility] Basophils (Bld) [#/Vol] 3.6 10*3/uL 2.0-7.7 [facility] Basophils/100 WBC (Bld) 55.5 % 47-70 [facility] Basophils/100 WBC (Bld) 1.7 % 0-5 [facility] Basophils/100 WBC (Bld) 0.3 % 0-1 [facility] Bilirubin [Mass/Vol] 0.50 mg/dL 0.20-1.00 [facility] Comment on above: For patients on eltr ombopag therapy, use of Dimension [place] TBIL is not recommended. Chloride [Moles/Vol] 108 mmol/L 98-107 [facility] Eosinophils/100 WBC (Bld) 1.7 % 0-5 [facility] Glucose [Mass/Vol] 169 mg/dL 74-106 [facility] Comment on above: Fasting Glucose resu lt greater than or equal to 126 mg/dL suggests DIABETES MELLITUS per A.D.A. criteria. Neutrophils (Bld) [#/Vol] 3.6 10*3/uL 2.0-7.7 [facility] Neutrophils/100 WBC (Bld) 55.5 % 47-70 [facility] Potassium [Moles/Vol] 3.8 mmol/L 3.5-5.1 [facility] Protein [Mass/Vol] 7.2 g/dL 6.4-8.2 [facility] Sodium [Moles/Vol] 142 mmol/L 136-145 [facility] WBC (Bld) [#/Vol] 6.5 10*3/uL 4.4-11.0 [facility] Blood erythrocytes count (nu mber/volume)Ordered By: Dr. Yen on 11-08-2022 RBC (Bld) [#/Vol] 4.43 10*6/uL 4.6-6.2 [facility] Blood hemoglobin measurement (mass/volume)Ordered By: Dr. Yen on 11-08-2022 Hemoglobin (Bld) [Mass/Vol] 13.8 g/dL 13.0-16.5 [facility] Blood lymphocytes/100 leukoc ytesOrdered By: Dr. Yen on 11-08-2022 Lymphocytes/100 WBC (Bld) 30.4 % 19-41 [facility] Blood monocytes/100 leukocyt esOrdered By: Dr. Yen on 11-08-2022 Monocytes/100 WBC (Bld) 11.8 % 0-10 [facility] Blood platelet mean volumeOr dered By: Dr. Yen on 11-08-2022 Platelet mean volume (Bld) [Entitic vol] 11.5 fL 6.2-12.0 [facility] Determination of erythrocyte mean corpuscular volume (MCV)Ordered By: Dr. Yen on 11-08-2022 MCV (RBC) [Entitic vol] 93.5 fL 80-94 [facility] Hematocrit Auto (Bld) [Volum e fraction]Ordered By: Dr. Yen on 11-08-2022 Hematocrit (Bld) [Volume fraction] 41.4 % 40-54 [facility] Laboratory - Chemistry and C hemistry - challengeOrdered By: Dr. eYn on 11-08-2022 ALP [Catalytic activity/Vol] 53 U/L 45-117 [facility] ALT [Catalytic activity/Vol] 52 U/L 16-61 [facility] CO2 [Moles/Vol] 25.0 mmol/L 21.0-32.0 [facility] Globulin (S) [Mass/Vol] 3.8 g/dL 2.2-4.2 [facility] Urea nitrogen/Creatinine [Mass ratio] 17.8 mg/mg 10-20 [facility] Laboratory - Hematology and Cell countsOrdered By: Dr. Yen on 11-08-2022 Erythrocyte distribution width (RBC) [Entitic vol] 57.5 fL 35.1-43.9 [facility] Erythrocyte distribution width (RBC) [Ratio] 16.8 % 11.6-14.6 [facility] Immature granulocytes/100 WBC (Bld) 0.300 % 0.0-0.9 [facility] Comment on above: IG% - Immature Granu locytes (promyelocytes, myelocytes and metamyelocytes) > 1% indicates that a LEFT SHIFT is Present. MCH (RBC) [Entitic mass] 31.2 pg 27.0-32.0 [facility] Nucleated RBC/100 WBC (Bld) [Ratio] 0.3 % 0-5 [facility] MCHC Auto (RBC) [Mass/Vol]Or dered By: Dr. Yen on 11-08-2022 MCHC (RBC) [Mass/Vol] 33.3 g/dL 32-36 [facility] No Panel InformationOrdered By: Dr. Yen on 11-08-2022 Estimated GFR (MDRD) Amer 66 mL/min >60 [facility] Comment on above: GFR Calc Estimated GFR (MDRD) Non-Af Amer 54 mL/min >60 [facility] Comment on above: Non- GFR Calc 31.2 pg 27.0-32.0 [facility] 16.8 % 11.6-14.6 [facility] 57.5 fl 35.1-43.9 [facility] 0.300 % 0.0-0.9 [facility] 0.3 % 0-5 [facility] 54 mL/min >60 [facility] 66 mL/min >60 [facility] 17.8 RATIO 10-20 [facility] 3.8 g/dL 2.2-4.2 [facility] 53 U/L 45-117 [facility] 52 U/L 16-61 [facility] 25.0 mmol/L 21.0-32.0 [facility] Platelets bldOrdered By: Dr. Yen on 11-08-2022 Platelets (Bld) [#/Vol] 129 10*3/uL 150-450 [facility] Serum or plasma albumin amanda urement (mass/volume)Ordered By: Dr. Yen on 11-08-2022 Albumin [Mass/Vol] 3.4 g/dL 3.2-5.0 [facility] Serum or plasma albumin/glob ulin mass ratioOrdered By: Dr. Yen on 11-08-2022 Albumin/Globulin [Mass ratio] 0.9 {ratio} 0.9-2.4 [facility] Serum or plasma calcium amanda urement (mass/volume)Ordered By: Dr. Yen on 11-08-2022 Calcium [Mass/Vol] 9.0 mg/dL 8.5-10.1 [facility] Serum or plasma creatinine m easurement (mass/volume)Ordered By: Dr. Yen on 11-08-2022 Creatinine [Mass/Vol] 1.35 mg/dL 0.70-1.30 [facility] Comment on above: The validity of the calculated GFR & GFRAA in patients over 70 years has not been determined. Clinical correlation is essential. Serum or plasma urea nitroge n measurement (mass/volume)Ordered By: Dr. Yen on 11-08-2022 Urea nitrogen [Mass/Vol] 24 mg/dL 7-18 [facility] Serum or plasma uric acid me asurement (mass/volume)Ordered By: Dr. Yen on 11-08-2022 Urate [Mass/Vol] 5.1 mg/dL 3.5-7.2 [facility] Comment on above: The drugs N-Acetylcy steine and Metamizole may falsely depress this assay. Thin prep Papanicolaou smear with manual screeningOrdered By: Dr. Yen on 11-08-2022 Thin prep Papanicolaou smear with manual screening 23 U/L 15-37 [facility] Thin prep Papanicolaou smear with manual screening 9 5-15 [facility] Anaerobic cultureOrdered By: Dr. Rojo on 10-08-2022 Bacteria identified Anaer cx Nom (Unsp spec) No growth in 5 days. [facility] Bacterial body fluid culture Ordered By: Dr. Rojo on 10-07-2022 Bacteria identified Cx Nom (Body fld) Culture exhibits no growth. [facility] Absolute lymphocyte countOrd ered By: Dr. Bellamy on 10-05-2022 Lymphocytes Auto (Unsp spec) [#/Vol] 1.16 10*3/uL 0.83-4.51 [facility] Basophil percentageOrdered B y: Dr. Bellamy on 10-05-2022 Basophil percentage 1.8 mg/dL 2.5-4.9 [facility] Basophil percentage 210 mg/dL 74-106 [facility] Basophil percentage 138 mmol/L 136-145 [facility] Basophil percentage 3.4 mmol/L 3.5-5.1 [facility] Basophil percentage 104 mmol/L 98-107 [facility] Basophils (Bld) [#/Vol] 10.7 10*3/uL 4.4-11.0 [facility] Basophils (Bld) [#/Vol] 9.0 10*3/uL 2.0-7.7 [facility] Basophils/100 WBC (Bld) 0.1 % 0-1 [facility] Basophils/100 WBC (Bld) 84.0 % 47-70 [facility] Basophils/100 WBC (Bld) 0.0 % 0-5 [facility] Chloride [Moles/Vol] 104 mmol/L 98-107 [facility] Eosinophils/100 WBC (Bld) 0.0 % 0-5 [facility] Glucose [Mass/Vol] 210 mg/dL 74-106 [facility] Comment on above: Glucose result great er than or equal to 200 mg/dLsuggests DIABETES MELLITUS per A.D.A. criteria. Neutrophils (Bld) [#/Vol] 9.0 10*3/uL 2.0-7.7 [facility] Neutrophils/100 WBC (Bld) 84.0 % 47-70 [facility] Potassium [Moles/Vol] 3.4 mmol/L 3.5-5.1 [facility] Sodium [Moles/Vol] 138 mmol/L 136-145 [facility] WBC (Bld) [#/Vol] 10.7 10*3/uL 4.4-11.0 [facility] Blood erythrocytes count (nu mber/volume)Ordered By: Dr. Bellamy on 10-05-2022 RBC (Bld) [#/Vol] 3.98 10*6/uL 4.6-6.2 [facility] Blood hemoglobin measurement (mass/volume)Ordered By: Dr. Bellamy on 10-05-2022 Hemoglobin (Bld) [Mass/Vol] 12.3 g/dL 13.0-16.5 [facility] Blood lymphocytes/100 leukoc ytesOrdered By: Dr. Bellamy on 10-05-2022 Lymphocytes/100 WBC (Bld) 10.8 % 19-41 [facility] Blood monocytes/100 leukocyt esOrdered By: Dr. Bellamy on 10-05-2022 Monocytes/100 WBC (Bld) 4.7 % 0-10 [facility] Blood platelet mean volumeOr dered By: Dr. Bellamy on 10-05-2022 Platelet mean volume (Bld) [Entitic vol] 11.2 fL 6.2-12.0 [facility] Determination of erythrocyte mean corpuscular volume (MCV)Ordered By: Dr. Bellamy on 10-05-2022 MCV (RBC) [Entitic vol] 91.2 fL 80-94 [facility] Glucose Glucometer (BldC) [M ass/Vol]Ordered By: Dr. Bojorquez on 10-05-2022 Glucose [Mass/Vol] 185 mg/dL 74-106 [facility] Comment on above: MANAGEMENT OF PATIEN T CARE PER NURSING PROTOCOL Hematocrit Auto (Bld) [Volum e fraction]Ordered By: Dr. Bellamy on 10-05-2022 Hematocrit (Bld) [Volume fraction] 36.3 % 40-54 [facility] Laboratory - Chemistry and C hemistry - challengeOrdered By: Dr. Bellamy on 10-05-2022 CO2 [Moles/Vol] 25.0 mmol/L 21.0-32.0 [facility] Magnesium [Mass/Vol] 2.2 mg/dL 1.6-2.6 [facility] Urea nitrogen/Creatinine [Mass ratio] 17.5 mg/mg 10-20 [facility] Laboratory - Hematology and Cell countsOrdered By: Dr. Bellamy on 10-05-2022 Erythrocyte distribution width (RBC) [Entitic vol] 53.3 fL 35.1-43.9 [facility] Erythrocyte distribution width (RBC) [Ratio] 15.7 % 11.6-14.6 [facility] Immature granulocytes/100 WBC (Bld) 0.400 % 0.0-0.9 [facility] Comment on above: IG% - Immature Granu locytes (promyelocytes, myelocytes and metamyelocytes) > 1% indicates that a LEFT SHIFT is Present. MCH (RBC) [Entitic mass] 30.9 pg 27.0-32.0 [facility] Nucleated RBC/100 WBC (Bld) [Ratio] 0 % 0-5 [facility] MCHC Auto (RBC) [Mass/Vol]Or dered By: Dr. Bellamy on 10-05-2022 MCHC (RBC) [Mass/Vol] 33.9 g/dL 32-36 [facility] No Panel InformationOrdered By: Dr. Bellamy on 10-05-2022 Estimated Creatinine Clearance Calc 34.29 ml/min [facility] Estimated GFR (MDRD) Amer 52 mL/min >60 [facility] Comment on above: GFR Calc Estimated GFR (MDRD) Non-Af Amer 43 mL/min >60 [facility] Comment on above: Non- GFR Calc 30.9 pg 27.0-32.0 [facility] 15.7 % 11.6-14.6 [facility] 53.3 fl 35.1-43.9 [facility] 0.400 % 0.0-0.9 [facility] 0 % 0-5 [facility] 43 mL/min >60 [facility] 52 mL/min >60 [facility] 34.29 ml/min [facility] 17.5 RATIO 10-20 [facility] 2.2 mg/dL 1.6-2.6 [facility] 25.0 mmol/L 21.0-32.0 [facility] Platelets bldOrdered By: Dr. Bellamy on 10-05-2022 Platelets (Bld) [#/Vol] 192 10*3/uL 150-450 [facility] Serum or plasma calcium amanda urement (mass/volume)Ordered By: Dr. Bellamy on 10-05-2022 Calcium [Mass/Vol] 8.4 mg/dL 8.5-10.1 [facility] Serum or plasma creatinine m easurement (mass/volume)Ordered By: Dr. Bellamy on 10-05-2022 Creatinine [Mass/Vol] 1.66 mg/dL 0.70-1.30 [facility] Comment on above: The validity of the calculated GFR & GFRAA in patients over 70 years has not been determined. Clinical correlation is essential. Serum or plasma urea nitroge n measurement (mass/volume)Ordered By: Dr. Bellamy on 10-05-2022 Urea nitrogen [Mass/Vol] 29 mg/dL 7-18 [facility] Thin prep Papanicolaou smear with manual screeningOrdered By: Dr. Blelamy on 10-05-2022 Thin prep Papanicolaou smear with manual screening 9 5-15 [facility] Absolute lymphocyte counton 10-04-2022 Lymphocytes Auto (Unsp spec) [#/Vol] 2.44 10*3/uL 0.83-4.51 [facility] Work Phone: Basophil percentageon 2022 Basophils/100 WBC (Bld) 0.2 % 0-1 [facility] Work Phone: Chloride [Moles/Vol] 104 mmol/L 98-107 [facility] Work Phone: Eosinophils/100 WBC (Bld) 1.7 % 0-5 [facility] Work Phone: Glucose [Mass/Vol] 175 mg/dL 74-106 [facility] Work Phone: Comment on above: Fasting Glucose resu lt greater than or equal to 126 mg/dL suggests DIABETES MELLITUS per A.D.A. criteria. Neutrophils (Bld) [#/Vol] 6.6 10*3/uL 2.0-7.7 [facility] Work Phone: [phone] Neutrophils/100 WBC (Bld) 62.9 % 47-70 [facility] Work Phone: [phone] Potassium [Moles/Vol] 3.3 mmol/L 3.5-5.1 [facility] Work Phone: [phone] Comment on above: Slight Hemolysis, Re sult may be falsely increased. Sodium [Moles/Vol] 136 mmol/L 136-145 [facility] Work Phone: [phone] WBC (Bld) [#/Vol] 10.4 10*3/uL 4.4-11.0 [facility] Work Phone: [phone] Blood erythrocytes count (nu mber/volume)on 10-04-2022 RBC (Bld) [#/Vol] 4.01 10*6/uL 4.6-6.2 [facility] Work Phone: Blood hemoglobin measurement (mass/volume)on 10-04-2022 Hemoglobin (Bld) [Mass/Vol] 12.5 g/dL 13.0-16.5 [facility] Work Phone: Blood lymphocytes/100 leukoc yteson 10-04-2022 Lymphocytes/100 WBC (Bld) 23.4 % 19-41 [facility] Work Phone: [phone] Blood monocytes/100 leukocyt eson 10-04-2022 Monocytes/100 WBC (Bld) 11.5 % 0-10 [facility] Work Phone: Blood platelet mean volumeon 10-04-2022 Platelet mean volume (Bld) [Entitic vol] 11.7 fL 6.2-12.0 [facility] Work Phone: Determination of erythrocyte mean corpuscular volume (MCV)on 10-04-2022 MCV (RBC) [Entitic vol] 92.8 fL 80-94 [facility] Work Phone: [phone] Erythrocyte sedimentation ra teOrdered By: Dr. Stratton on 10-04-2022 ESR (Bld) [Velocity] 43 mm/h 0-20 [facility] Hematocrit Auto (Bld) [Volum e fraction]on 10-04-2022 Hematocrit (Bld) [Volume fraction] 37.2 % 40-54 [facility] Work Phone: [phone] Laboratory - Chemistry and C hemistry - challengeon 10-04-2022 CO2 [Moles/Vol] 27.0 mmol/L 21.0-32.0 [facility] Work Phone: [phone] Urea nitrogen/Creatinine [Mass ratio] 14.0 mg/mg 10-20 [facility] Work Phone: [phone] Laboratory - Hematology and Cell countson 10-04-2022 Erythrocyte distribution width (RBC) [Entitic vol] 55.3 fL 35.1-43.9 [facility] Work Phone: [phone] Erythrocyte distribution width (RBC) [Ratio] 16.2 % 11.6-14.6 [facility] Work Phone: [phone] Immature granulocytes/100 WBC (Bld) 0.300 % 0.0-0.9 [facility] Work Phone: [phone] Comment on above: IG% - Immature Granu locytes (promyelocytes, myelocytes and metamyelocytes) > 1% indicates that a LEFT SHIFT is Present. MCH (RBC) [Entitic mass] 31.2 pg 27.0-32.0 [facility] Work Phone: [phone] Nucleated RBC/100 WBC (Bld) [Ratio] 0 % 0-5 [facility] Work Phone: [phone] MCHC Auto (RBC) [Mass/Vol]on 10-04-2022 MCHC (RBC) [Mass/Vol] 33.6 g/dL 32-36 [facility] Work Phone: [phone] Panel Informationon 10-04 Estimated Creatinine Clearance Calc 30.60 ml/min [facility] Work Phone: [phone] Estimated GFR (MDRD) Amer 45 mL/min >60 [facility] Work Phone: Comment on above: GFR Calc Estimated GFR (MDRD) Non-Af Amer 38 mL/min >60 [facility] Work Phone: Comment on above: Non- GFR Calc Platelets bldon 10-04-2022 Platelets (Bld) [#/Vol] 176 10*3/uL 150-450 [facility] Work Phone: Serum or plasma C reactive p rotein measurement (mass/volume)Ordered By: Dr. Stratton on 10-04-2022 CRP [Mass/Vol] 122.00 mg/L 0.0-3.0 [facility] Comment on above: C-Reactive Protein ( CRP) provides useful information for thediagnosis, therapy and monitoring of inflammatory processesand associated diseases. For the evaluation of Relative Riskfor Cardiovascular Disease, a High Sensitivity CRP (HSCRP)should be ordered. Serum or plasma calcium amanda urement (mass/volume)on 10-04-2022 Calcium [Mass/Vol] 8.4 mg/dL 8.5-10.1 [facility] Work Phone: Serum or plasma creatinine m easurement (mass/volume)on 10-04-2022 Creatinine [Mass/Vol] 1.86 mg/dL 0.70-1.30 [facility] Work Phone: Comment on above: The validity of the calculated GFR & GFRAA in patients over 70 years has not been determined. Clinical correlation is essential. Serum or plasma urea nitroge n measurement (mass/volume)on 10-04-2022 Urea nitrogen [Mass/Vol] 26 mg/dL 7-18 [facility] Work Phone: Thin prep Papanicolaou smear with manual screeningon 10-04-2022 Thin prep Papanicolaou smear with manual screening 5 5-15 [facility] Work Phone: Gram stain for investigation of transfusion reactionOrdered By: Dr. Rojo on 10-03-2022 Microscopic observation Gram stain Nom (Unsp spec) [facility] Absolute lymphocyte countOrd ered By: Dr. Mckinley on 10-02-2022 Lymphocytes Auto (Unsp spec) [#/Vol] 2.56 10*3/uL 0.83-4.51 [facility] Absolute lymphocyte countOrd ered By: Dr. Yen on 10-02-2022 Lymphocytes Auto (Unsp spec) [#/Vol] 2.50 10*3/uL 0.83-4.51 [facility] Basophil percentageOrdered B y: Dr. Mckinley on 10-02-2022 Basophil percentage 130 mg/dL 74-106 [facility] Basophil percentage 138 mmol/L 136-145 [facility] Basophil percentage 3.5 mmol/L 3.5-5.1 [facility] Basophil percentage 103 mmol/L 98-107 [facility] Basophils (Bld) [#/Vol] 10.3 10*3/uL 4.4-11.0 [facility] Basophils (Bld) [#/Vol] 6.1 10*3/uL 2.0-7.7 [facility] Basophils/100 WBC (Bld) 0.3 % 0-1 [facility] Basophils/100 WBC (Bld) 59.5 % 47-70 [facility] Basophils/100 WBC (Bld) 2.8 % 0-5 [facility] Chloride [Moles/Vol] 103 mmol/L 98-107 [facility] Eosinophils/100 WBC (Bld) 2.8 % 0-5 [facility] Glucose [Mass/Vol] 130 mg/dL 74-106 [facility] Comment on above: Fasting Glucose resu lt greater than or equal to 126 mg/dL suggests DIABETES MELLITUS per A.D.A. criteria. Neutrophils (Bld) [#/Vol] 6.1 10*3/uL 2.0-7.7 [facility] Neutrophils/100 WBC (Bld) 59.5 % 47-70 [facility] Potassium [Moles/Vol] 3.5 mmol/L 3.5-5.1 [facility] Sodium [Moles/Vol] 138 mmol/L 136-145 [facility] WBC (Bld) [#/Vol] 10.3 10*3/uL 4.4-11.0 [facility] Basophil percentageOrdered B y: Dr. Yen on 10-02-2022 Basophil percentage 200 mg/dL 74-106 [facility] Basophil percentage 7.7 g/dL 6.4-8.2 [facility] Basophil percentage 0.60 mg/dL 0.20-1.00 [facility] Basophil percentage 139 mmol/L 136-145 [facility] Basophil percentage 3.4 mmol/L 3.5-5.1 [facility] Basophil percentage 103 mmol/L 98-107 [facility] Basophils (Bld) [#/Vol] 9.3 10*3/uL 4.4-11.0 [facility] Basophils (Bld) [#/Vol] 5.5 10*3/uL 2.0-7.7 [facility] Basophils/100 WBC (Bld) 0.3 % 0-1 [facility] Basophils/100 WBC (Bld) 58.9 % 47-70 [facility] Basophils/100 WBC (Bld) 3.1 % 0-5 [facility] Bilirubin [Mass/Vol] 0.60 mg/dL 0.20-1.00 [facility] Comment on above: For patients on eltr ombopag therapy, use of Dimension [place] TBIL is not recommended. Chloride [Moles/Vol] 103 mmol/L 98-107 [facility] Eosinophils/100 WBC (Bld) 3.1 % 0-5 [facility] Glucose [Mass/Vol] 200 mg/dL 74-106 [facility] Comment on above: Glucose result great er than or equal to 200 mg/dLsuggests DIABETES MELLITUS per A.D.A. criteria. Neutrophils (Bld) [#/Vol] 5.5 10*3/uL 2.0-7.7 [facility] Neutrophils/100 WBC (Bld) 58.9 % 47-70 [facility] Potassium [Moles/Vol] 3.4 mmol/L 3.5-5.1 [facility] Protein [Mass/Vol] 7.7 g/dL 6.4-8.2 [facility] Sodium [Moles/Vol] 139 mmol/L 136-145 [facility] WBC (Bld) [#/Vol] 9.3 10*3/uL 4.4-11.0 [facility] Blood erythrocytes count (nu mber/volume)Ordered By: Dr. Mckinley on 10-02-2022 RBC (Bld) [#/Vol] 4.31 10*6/uL 4.6-6.2 [facility] Blood erythrocytes count (nu mber/volume)Ordered By: Dr. Yen on 10-02-2022 RBC (Bld) [#/Vol] 4.18 10*6/uL 4.6-6.2 [facility] Blood hemoglobin measurement (mass/volume)Ordered By: Dr. Mckinley on 10-02-2022 Hemoglobin (Bld) [Mass/Vol] 13.6 g/dL 13.0-16.5 [facility] Blood hemoglobin measurement (mass/volume)Ordered By: Dr. Yen on 10-02-2022 Hemoglobin (Bld) [Mass/Vol] 13.0 g/dL 13.0-16.5 [facility] Blood lymphocytes/100 leukoc ytesOrdered By: Dr. Rojo on 10-02-2022 Lymphocytes/100 WBC (Bld) 34 % [facility] Blood lymphocytes/100 leukoc ytesOrdered By: Dr. Mckinley on 10-02-2022 Lymphocytes/100 WBC (Bld) 24.9 % 19-41 [facility] Blood lymphocytes/100 leukoc ytesOrdered By: Dr. Yen on 10-02-2022 Lymphocytes/100 WBC (Bld) 26.9 % 19-41 [facility] Blood monocytes/100 leukocyt esOrdered By: Dr. Mckinley on 10-02-2022 Monocytes/100 WBC (Bld) 12.2 % 0-10 [facility] Blood monocytes/100 leukocyt esOrdered By: Dr. Yen on 10-02-2022 Monocytes/100 WBC (Bld) 10.3 % 0-10 [facility] Blood platelet mean volumeOr dered By: Dr. Mckinley on 10-02-2022 Platelet mean volume (Bld) [Entitic vol] 10.7 fL 6.2-12.0 [facility] Blood platelet mean volumeOr dered By: Dr. Yen on 10-02-2022 Platelet mean volume (Bld) [Entitic vol] 11.0 fL 6.2-12.0 [facility] Color of Synovial fluidOrder ed By: Dr. Rojo on 10-02-2022 Color (Syn fld) Yellow Pale Yellow [facility] Determination of appearance of synovial fluidOrdered By: Dr. Rojo on 10-02-2022 Appearance (Syn fld) Sl Cl CLEAR [facility] Determination of erythrocyte mean corpuscular volume (MCV)Ordered By: Dr. Mckinley on 10-02-2022 MCV (RBC) [Entitic vol] 90.7 fL 80-94 [facility] Determination of erythrocyte mean corpuscular volume (MCV)Ordered By: Dr. Yen on 10-02-2022 MCV (RBC) [Entitic vol] 91.1 fL 80-94 [facility] Erythrocyte sedimentation ra teOrdered By: Dr. Mckinley on 10-02-2022 ESR (Bld) [Velocity] 28 mm/h 0-20 [facility] Hematocrit Auto (Bld) [Volum e fraction]Ordered By: Dr. Mckinley on 10-02-2022 Hematocrit (Bld) [Volume fraction] 39.1 % 40-54 [facility] Hematocrit Auto (Bld) [Volum e fraction]Ordered By: Dr. Yen on 10-02-2022 Hematocrit (Bld) [Volume fraction] 38.1 % 40-54 [facility] Laboratory - Chemistry and C hemistry - challengeOrdered By: Dr. Mckinley on 10-02-2022 CO2 [Moles/Vol] 28.0 mmol/L 21.0-32.0 [facility] Urea nitrogen/Creatinine [Mass ratio] 12.1 mg/mg 10-20 [facility] Laboratory - Chemistry and C hemistry - challengeOrdered By: Dr. Yen on 10-02-2022 ALP [Catalytic activity/Vol] 59 U/L 45-117 [facility] ALT [Catalytic activity/Vol] 47 U/L 16-61 [facility] CO2 [Moles/Vol] 28.0 mmol/L 21.0-32.0 [facility] Globulin (S) [Mass/Vol] 3.8 g/dL 2.2-4.2 [facility] Urea nitrogen/Creatinine [Mass ratio] 12.6 mg/mg 10-20 [facility] Laboratory - Hematology and Cell countsOrdered By: Dr. Mckinley on 10-02-2022 Erythrocyte distribution width (RBC) [Entitic vol] 53.1 fL 35.1-43.9 [facility] Erythrocyte distribution width (RBC) [Ratio] 15.9 % 11.6-14.6 [facility] Immature granulocytes/100 WBC (Bld) 0.300 % 0.0-0.9 [facility] Comment on above: IG% - Immature Granu locytes (promyelocytes, myelocytes and metamyelocytes) > 1% indicates that a LEFT SHIFT is Present. MCH (RBC) [Entitic mass] 31.6 pg 27.0-32.0 [facility] Nucleated RBC/100 WBC (Bld) [Ratio] 0 % 0-5 [facility] Laboratory - Hematology and Cell countsOrdered By: Dr. Yen on 10-02-2022 Erythrocyte distribution width (RBC) [Entitic vol] 52.8 fL 35.1-43.9 [facility] Erythrocyte distribution width (RBC) [Ratio] 15.7 % 11.6-14.6 [facility] Immature granulocytes/100 WBC (Bld) 0.500 % 0.0-0.9 [facility] Comment on above: IG% - Immature Granu locytes (promyelocytes, myelocytes and metamyelocytes) > 1% indicates that a LEFT SHIFT is Present. MCH (RBC) [Entitic mass] 31.1 pg 27.0-32.0 [facility] Nucleated RBC/100 WBC (Bld) [Ratio] 0 % 0-5 [facility] MCHC Auto (RBC) [Mass/Vol]Or dered By: Dr. Mckinley on 10-02-2022 MCHC (RBC) [Mass/Vol] 34.8 g/dL [facility] MCHC Auto (RBC) [Mass/Vol]Or dered By: Dr. Yen on 10-02-2022 MCHC (RBC) [Mass/Vol] 34.1 g/dL [facility] No Panel InformationOrdered By: Dr. Rojo on 10-02-2022 Synovial Fluid Mononuclear WBCs 0.167 10^3/ul [facility] Synovial Fluid Mononuclear WBCs % 56.3 % [facility] Synovial Fluid Polynuclear WBCs 0.130 10^3/uL [facility] Synovial Fluid Polynuclear WBCs % 43.7 % [facility] Synovial Fluid Total Cells Counted 0.3170 10^3/uL 0.000-0.00 0 [facility] Comment on above: This is the Total Nu mber of Nucleated Cell Types in the Body Fluid. 0.3170 10^3/uL 0.000-0.00 0 [facility] 43.7 % [facility] 0.130 10^3/uL [facility] 56.3 % [facility] 0.167 10^3/ul [facility] No Panel InformationOrdered By: Dr. Mckinley on 10-02-2022 Estimated Creatinine Clearance Calc 31.27 ml/min [facility] Estimated GFR (MDRD) Amer 47 mL/min >60 [facility] Comment on above: GFR Calc Estimated GFR (MDRD) Non-Af Amer 39 mL/min >60 [facility] Comment on above: Non- GFR Calc 31.6 pg 27.0-32.0 [facility] 15.9 % 11.6-14.6 [facility] 53.1 fl 35.1-43.9 [facility] 0.300 % 0.0-0.9 [facility] 0 % 0-5 [facility] 39 mL/min >60 [facility] 47 mL/min >60 [facility] 31.27 ml/min [facility] 12.1 RATIO 10-20 [facility] 28.0 mmol/L 21.0-32.0 [facility] No Panel InformationOrdered By: Dr. Yen on 10-02-2022 Estimated GFR (MDRD) Amer 49 mL/min >60 [facility] Comment on above: GFR Calc Estimated GFR (MDRD) Non-Af Amer 41 mL/min >60 [facility] Comment on above: Non- GFR Calc 31.1 pg 27.0-32.0 [facility] 15.7 % 11.6-14.6 [facility] 52.8 fl 35.1-43.9 [facility] 0.500 % 0.0-0.9 [facility] 0 % 0-5 [facility] 41 mL/min >60 [facility] 49 mL/min >60 [facility] 12.6 RATIO 10-20 [facility] 3.8 g/dL 2.2-4.2 [facility] 59 U/L 45-117 [facility] 47 U/L 16-61 [facility] 28.0 mmol/L 21.0-32.0 [facility] Platelets bldOrdered By: Dr. Mckinley on 10-02-2022 Platelets (Bld) [#/Vol] 176 10*3/uL 150-450 [facility] Platelets bldOrdered By: Dr. Yen on 10-02-2022 Platelets (Bld) [#/Vol] 165 10*3/uL 150-450 [facility] Review by pathologiston Pathologist review [place] (Unsp spec) [Interp] May follow [facility] Work Phone: Review by pathologistOrdered By: Dr. Rojo on 10-02-2022 Pathologist review [place] (Unsp spec) [Interp] Reviewed [facility] Comment on above: Previous reported re sult: May follow Edited by: RGOOD on 10/03/22:1326Negative for malignant cells.Andrea Henley M.D. 10/03/22 AMENDED REPORT 10/03/22 1326 PATH COM/SYFL previously reported as: May follow Serum or plasma C reactive p rotein measurement (mass/volume)Ordered By: Dr. Mckinley on 10-02-2022 CRP [Mass/Vol] 26.30 mg/L 0.0-3.0 [facility] Comment on above: C-Reactive Protein ( CRP) provides useful information for thediagnosis, therapy and monitoring of inflammatory processesand associated diseases. For the evaluation of Relative Riskfor Cardiovascular Disease, a High Sensitivity CRP (HSCRP)should be ordered. Serum or plasma albumin amanda urement (mass/volume)Ordered By: Dr. Yen on 10-02-2022 Albumin [Mass/Vol] 3.9 g/dL 3.2-5.0 [facility] Serum or plasma albumin/glob ulin mass ratioOrdered By: Dr. Yen on 10-02-2022 Albumin/Globulin [Mass ratio] 1.0 {ratio} 0.9-2.4 [facility] Serum or plasma calcium amanda urement (mass/volume)Ordered By: Dr. Mckinley on 10-02-2022 Calcium [Mass/Vol] 8.7 mg/dL 8.5-10.1 [facility] Serum or plasma calcium amanda urement (mass/volume)Ordered By: Dr. Yen on 10-02-2022 Calcium [Mass/Vol] 9.1 mg/dL 8.5-10.1 [facility] Serum or plasma creatinine m easurement (mass/volume)Ordered By: Dr. Mckinley on 10-02-2022 Creatinine [Mass/Vol] 1.82 mg/dL 0.70-1.30 [facility] Comment on above: The validity of the calculated GFR & GFRAA in patients over 70 years has not been determined. Clinical correlation is essential. Serum or plasma creatinine m easurement (mass/volume)Ordered By: Dr. Yen on 10-02-2022 Creatinine [Mass/Vol] 1.74 mg/dL 0.70-1.30 [facility] Comment on above: The validity of the calculated GFR & GFRAA in patients over 70 years has not been determined. Clinical correlation is essential. Serum or plasma urea nitroge n measurement (mass/volume)Ordered By: Dr. Mckinley on 10-02-2022 Urea nitrogen [Mass/Vol] 22 mg/dL 04-16 [facility] Serum or plasma urea nitroge n measurement (mass/volume)Ordered By: Dr. Yen on 10-02-2022 Urea nitrogen [Mass/Vol] 22 mg/dL 04-16 [facility] Serum or plasma uric acid me asurement (mass/volume)Ordered By: Dr. Mckinley on 10-02-2022 Urate [Mass/Vol] 8.3 mg/dL 3.5-7.2 [facility] Comment on above: The drugs N-Acetylcy steine and Metamizole may falsely depress this assay. Specimen source identificati on of body fluidOrdered By: Dr. Rojo on 10-02-2022 Specimen source Nom (Body fld) RIGHT KNEE [facility] Synovial fluid erythrocytes count (number/volume)Ordered By: Dr. Rojo on 10-02-2022 RBC (Syn fld) [#/Vol] 0.002 10^6/uL 0-0 [facility] Synovial fluid leukocytes co unt (number/volume)Ordered By: Dr. Rojo on 10-02-2022 WBC (Syn fld) [#/Vol] 0.2970 10^3/uL 0.00 0-0.00 2 [facility] Synovial fluid monocyte perc entageOrdered By: Dr. Rojo on 10-02-2022 Monocytes/100 WBC (Syn fld) 34 % [facility] Synovial fluid neutrophil pe rcentageOrdered By: Dr. Rojo on 10-02-2022 Neutrophils/100 WBC (Syn fld) 30 % 0-25 [facility] Synovial fluid other cells/1 00 leukocytes identificationOrdered By: Dr. Rojo on 10-02-2022 Other cells/100 WBC Nom (Syn fld) 2 % [facility] Thin prep Papanicolaou smear with manual screeningOrdered By: Dr. Mckinley on 10-02-2022 Thin prep Papanicolaou smear with manual screening 7 5-15 [facility] Thin prep Papanicolaou smear with manual screeningOrdered By: Dr. Yen on 10-02-2022 Thin prep Papanicolaou smear with manual screening 29 U/L 15-37 [facility] Thin prep Papanicolaou smear with manual screening 8 5-15 [facility] Absolute lymphocyte countOrd ered By: Dyan Chavez on 09-06-2022 Lymphocytes Auto (Unsp spec) [#/Vol] 2.77 10*3/uL 0.83-4.51 [facility] Basophil percentageOrdered B y: Dyan Chavez on 09-06-2022 Basophil percentage 121 mg/dL 74-106 [facility] Basophil percentage 139 mmol/L 136-145 [facility] Basophil percentage 3.5 mmol/L 3.5-5.1 [facility] Basophil percentage 106 mmol/L 98-107 [facility] Basophils (Bld) [#/Vol] 6.7 10*3/uL 4.4-11.0 [facility] Basophils (Bld) [#/Vol] 2.8 10*3/uL 2.0-7.7 [facility] Basophils/100 WBC (Bld) 0.6 % 0-1 [facility] Basophils/100 WBC (Bld) 41.2 % 47-70 [facility] Basophils/100 WBC (Bld) 6.4 % 0-5 [facility] Chloride [Moles/Vol] 106 mmol/L 98-107 [facility] Eosinophils/100 WBC (Bld) 6.4 % 0-5 [facility] Glucose [Mass/Vol] 121 mg/dL 74-106 [facility] Comment on above: Fasting Glucose resu lt from 100 to 125 mg/dL suggests IMPAIRED HOMEOSTASIS per A.D.A. criteria. Neutrophils (Bld) [#/Vol] 2.8 10*3/uL 2.0-7.7 [facility] Neutrophils/100 WBC (Bld) 41.2 % 47-70 [facility] Potassium [Moles/Vol] 3.5 mmol/L 3.5-5.1 [facility] Sodium [Moles/Vol] 139 mmol/L 136-145 [facility] WBC (Bld) [#/Vol] 6.7 10*3/uL 4.4-11.0 [facility] Blood erythrocytes count (nu mber/volume)Ordered By: Dyan Chavez on 09-06-2022 RBC (Bld) [#/Vol] 4.43 10*6/uL 4.6-6.2 [facility] Blood hemoglobin measurement (mass/volume)Ordered By: Dyan Chavez on 09-06-2022 Hemoglobin (Bld) [Mass/Vol] 13.6 g/dL 13.0-16.5 [facility] Blood lymphocytes/100 leukoc ytesOrdered By: Dyan Chavez on 09-06-2022 Lymphocytes/100 WBC (Bld) 41.2 % 19-41 [facility] Blood monocytes/100 leukocyt esOrdered By: Dyan Chavez on 09-06-2022 Monocytes/100 WBC (Bld) 10.5 % 0-10 [facility] Blood platelet mean volumeOr dered By: Dyan Chavez on 09-06-2022 Platelet mean volume (Bld) [Entitic vol] 11.1 fL 6.2-12.0 [facility] Determination of erythrocyte mean corpuscular volume (MCV)Ordered By: Dyan Chavez on 09-06-2022 MCV (RBC) [Entitic vol] 91.4 fL 80-94 [facility] Hematocrit Auto (Bld) [Volum e fraction]Ordered By: Dyan Chavez on 09-06-2022 Hematocrit (Bld) [Volume fraction] 40.5 % 40-54 [facility] Laboratory - Chemistry and C hemistry - challengeOrdered By: Dyan Chavez on 09-06-2022 CO2 [Moles/Vol] 28.0 mmol/L 21.0-32.0 [facility] Free T4 [Mass/Vol] 0.93 ng/dL 0.76-1.46 [facility] Urea nitrogen/Creatinine [Mass ratio] 14.5 mg/mg 10-20 [facility] Laboratory - Hematology and Cell countsOrdered By: Dyan Chavez on 09-06-2022 Erythrocyte distribution width (RBC) [Entitic vol] 53.2 fL 35.1-43.9 [facility] Erythrocyte distribution width (RBC) [Ratio] 15.8 % 11.6-14.6 [facility] Immature granulocytes/100 WBC (Bld) 0.100 % 0.0-0.9 [facility] Comment on above: IG% - Immature Granu locytes (promyelocytes, myelocytes and metamyelocytes) > 1% indicates that a LEFT SHIFT is Present. MCH (RBC) [Entitic mass] 30.7 pg 27.0-32.0 [facility] Nucleated RBC/100 WBC (Bld) [Ratio] 0 % 0-5 [facility] MCHC Auto (RBC) [Mass/Vol]Or dered By: Dyan Chavez on 09-06-2022 MCHC (RBC) [Mass/Vol] 33.6 g/dL 32-36 [facility] No Panel InformationOrdered By: Dyan Chavez on 09-06-2022 Estimated GFR (MDRD) Amer 52 mL/min >60 [facility] Comment on above: GFR Calc Estimated GFR (MDRD) Non-Af Amer 43 mL/min >60 [facility] Comment on above: Non- GFR Calc Free Triiodothyronine (T3) pg/dL 2.0 pg/mL 2.18-3.98 [facility] Thyroid Stimulating Hormone (TSH) 1.55 uIU/mL 0.358-3.74 [facility] Vitamin D 25-Hydroxy 47.3 ng/mL [facility] Comment on above: Vitamin D 25(OH) Sta tus Range Deficiency <20 ng/mL (50nmol/L) Insufficiency 20 - 30 ng/mL (50 - 75 nmol/L) Sufficiency 30 - 100 ng/mL (75 - 250 nmol/L) Toxicity >100 ng/mL (>250 nmol/L) 30.7 pg 27.0-32.0 [facility] 15.8 % 11.6-14.6 [facility] 53.2 fl 35.1-43.9 [facility] 0.100 % 0.0-0.9 [facility] 0 % 0-5 [facility] 43 mL/min >60 [facility] 52 mL/min >60 [facility] 14.5 RATIO 10-20 [facility] 28.0 mmol/L 21.0-32.0 [facility] 2.0 pg/mL 2.18-3.98 [facility] 1.55 uIU/mL 0.358-3.74 [facility] 0.93 ng/dL 0.76-1.46 [facility] 47.3 ng/mL [facility] Platelets bldOrdered By: Raymon Chavez on 09-06-2022 Platelets (Bld) [#/Vol] 181 10*3/uL 150-450 [facility] Serum or plasma calcium amanda urement (mass/volume)Ordered By: Dyan Chavez on 09-06-2022 Calcium [Mass/Vol] 8.7 mg/dL 8.5-10.1 [facility] Serum or plasma creatinine m easurement (mass/volume)Ordered By: Dyan Chavez on 09-06-2022 Creatinine [Mass/Vol] 1.65 mg/dL 0.70-1.30 [facility] Comment on above: The validity of the calculated GFR & GFRAA in patients over 70 years has not been determined. Clinical correlation is essential. Serum or plasma urea nitroge n measurement (mass/volume)Ordered By: Dyan Chavez on 09-06-2022 Urea nitrogen [Mass/Vol] 24 mg/dL 7-18 [facility] Thin prep Papanicolaou smear with manual screeningOrdered By: Dyan Chavez on 09-06-2022 Thin prep Papanicolaou smear with manual screening 5 - [facility] Basophil percentageOrdered B y: Dyan Chavez on 07-17-2022 Chloride [Moles/Vol] 110 mmol/L 98-107 [facility] Glucose [Mass/Vol] 146 mg/dL 74-106 [facility] Comment on above: Fasting Glucose resu lt greater than or equal to 126 mg/dL suggests DIABETES MELLITUS per A.D.A. criteria. Potassium [Moles/Vol] 3.8 mmol/L 3.5-5.1 [facility] Sodium [Moles/Vol] 141 mmol/L 136-145 [facility] Laboratory - Chemistry and C hemistry - challengeOrdered By: Dyan Chavez on 07-17-2022 CO2 [Moles/Vol] 26.0 mmol/L 21.0-32.0 [facility] Urea nitrogen/Creatinine [Mass ratio] 17.0 mg/mg 07-19 [facility] No Panel InformationOrdered By: Dyan Chavez on 07-17-2022 Estimated GFR (MDRD) Amer 57 mL/min >60 [facility] Comment on above: GFR Calc Estimated GFR (MDRD) Non-Af Amer 47 mL/min >60 [facility] Comment on above: Non- GFR Calc Serum or plasma calcium amanda urement (mass/volume)Ordered By: Dyan Chavez on 07-17-2022 Calcium [Mass/Vol] 9.1 mg/dL 8.5-10.1 [facility] Serum or plasma creatinine m easurement (mass/volume)Ordered By: Dyan Chavez on 07-17-2022 Creatinine [Mass/Vol] 1.53 mg/dL 0.70-1.30 [facility] Comment on above: The validity of the calculated GFR & GFRAA in patients over 70 years has not been determined. Clinical correlation is essential. Serum or plasma urea nitroge n measurement (mass/volume)Ordered By: Dyan Chavez on 07-17-2022 Urea nitrogen [Mass/Vol] 26 mg/dL - [facility] Thin prep Papanicolaou smear with manual screeningOrdered By: Dyan Chavez on 07-17-2022 Thin prep Papanicolaou smear with manual screening 5 - [facility] Basophil percentageon 2021 Basophil percentage 3.3 mg/dL 2.5-4.9 [facility]: Chloride [Moles/Vol] 111 mmol/L 98-107 [facility] Work [facility]: Glucose [Mass/Vol] 86 mg/dL 74-106 [facility] Work Phone: Potassium [Moles/Vol] 3.7 mmol/L 3.5-5.1 [facility] Work Phone: [phone] Sodium [Moles/Vol] 143 mmol/L 136-145 [facility] Work Phone: WBC (Bld) [#/Vol] 6.9 10*3/uL 4.4-11.0 [facility] Work Phone: Blood erythrocytes count (nu mber/volume)on 04-12-2022 RBC (Bld) [#/Vol] 4.29 10*6/uL 4.6-6.2 [facility] Work Phone: Blood hemoglobin measurement (mass/volume)on 04-12-2022 Hemoglobin (Bld) [Mass/Vol] 13.3 g/dL 13.0-16.5 [facility] Work Phone: Blood platelet mean volumeon 04-12-2022 Platelet mean volume (Bld) [Entitic vol] 11.2 fL 6.2-12.0 [facility] Work Phone: Determination of erythrocyte mean corpuscular volume (MCV)on 04-12-2022 MCV (RBC) [Entitic vol] 94.2 fL 80-94 [facility] Work Phone: Hematocrit Auto (Bld) [Volum e fraction]on 04-12-2022 Hematocrit (Bld) [Volume fraction] 40.4 % 40-54 [facility] Work Phone: Laboratory - Chemistry and C hemistry - challengeon 04-12-2022 CO2 [Moles/Vol] 29.0 mmol/L 21.0-32.0 [facility] Work Phone: Urea nitrogen/Creatinine [Mass ratio] 12.0 mg/mg 10-20 [facility] Work Phone: Laboratory - Hematology and Cell countson 04-12-2022 Erythrocyte distribution width (RBC) [Entitic vol] 54.0 fL 35.1-43.9 [facility] Work Phone: Erythrocyte distribution width (RBC) [Ratio] 15.6 % 11.6-14.6 [facility] Work Phone: MCH (RBC) [Entitic mass] 31.0 pg 27.0-32.0 [facility] Work Phone: MCHC Auto (RBC) [Mass/Vol]on 04-12-2022 MCHC (RBC) [Mass/Vol] 32.9 g/dL 32-36 [facility] Work Phone: No Panel Informationon 04-12 Estimated GFR (MDRD) Amer 52 mL/min >60 [facility] Work Phone: Comment on above: GFR Calc Estimated GFR (MDRD) Non-Af Amer 43 mL/min >60 [facility] Work Phone: Comment on above: Non- GFR Calc Parathyroid Hormone (Intact) 52.7 pg/mL 18.4-80.1 [facility] Work Phone: Platelets bldon 04-12-2022 Platelets (Bld) [#/Vol] 198 10*3/uL 150-450 [facility] Work Phone: Serum or plasma albumin amanda urement (mass/volume)on 04-12-2022 Albumin [Mass/Vol] 3.6 g/dL 3.2-5.0 [facility] Work Phone: Serum or plasma calcium amanda urement (mass/volume)on 04-12-2022 Calcium [Mass/Vol] 8.7 mg/dL 8.5-10.1 [facility] Work Phone: Serum or plasma creatinine m easurement (mass/volume)on 04-12-2022 Creatinine [Mass/Vol] 1.66 mg/dL 0.70-1.30 [facility] Work Phone: Comment on above: The validity of the calculated GFR & GFRAA in patients over 70 years has not been determined. Clinical correlation is essential. Serum or plasma urea nitroge n measurement (mass/volume)on 04-12-2022 Urea nitrogen [Mass/Vol] 20 mg/dL 7-18 [facility] Work Phone: Urine creatinine measurement (mass/volume)on 04-12-2022 Creatinine (U) [Mass/Vol] 78.70 mg/dL NO RANGE EST. [facility] Work Phone: Urine protein measurement (m ass/volume)on 04-12-2022 Protein (U) [Mass/Vol] 63.3 mg/dL 0.0-11.8 [facility] Work Phone: Urine protein/creatinine mas s ratioon 04-12-2022 Protein/Creatinine (U) [Mass ratio] 804 mg/g CRE 0-200 [facility] Work Phone: Absolute lymphocyte counton 03-28-2022 Lymphocytes Auto (Unsp spec) [#/Vol] 2.57 10*3/uL 0.83-4.51 [facility] Work Phone: Basophil percentageon 2021 Basophils/100 WBC (Bld) 0.3 % 0-1 [facility] Work Phone: [phone] Bilirubin [Mass/Vol] 0.70 mg/dL 0.20-1.00 [facility] Work Phone: [phone] Comment on above: For patients on eltr ombopag therapy, use of Dimension [place] TBIL is not recommended. Chloride [Moles/Vol] 110 mmol/L 98-107 [facility] Work Phone: Eosinophils/100 WBC (Bld) 2.9 % 0-5 [facility] Work Phone: Glucose [Mass/Vol] 115 mg/dL 74-106 [facility] Work Phone: Comment on above: Fasting Glucose resu lt from 100 to 125 mg/dL suggests IMPAIRED HOMEOSTASIS per A.D.A. criteria. Neutrophils (Bld) [#/Vol] 4.0 10*3/uL 2.0-7.7 [facility] Work Phone: Neutrophils/100 WBC (Bld) 52.6 % 47-70 [facility] Work Phone: Potassium [Moles/Vol] 3.8 mmol/L 3.5-5.1 [facility] Work Phone: Protein [Mass/Vol] 7.3 g/dL 6.4-8.2 [facility] Work Phone: Sodium [Moles/Vol] 143 mmol/L 136-145 [facility] Work Phone: [phone] WBC (Bld) [#/Vol] 7.5 10*3/uL 4.4-11.0 [facility] Work Phone: Blood erythrocytes count (nu mber/volume)on 03-28-2022 RBC (Bld) [#/Vol] 4.21 10*6/uL 4.6-6.2 [facility] Work Phone: Blood hemoglobin measurement (mass/volume)on 03-28-2022 Hemoglobin (Bld) [Mass/Vol] 12.9 g/dL 13.0-16.5 [facility] Work Phone: Blood lymphocytes/100 leukoc yteson 03-28-2022 Lymphocytes/100 WBC (Bld) 34.1 % 19-41 [facility] Work Phone: Blood monocytes/100 leukocyt eson 03-28-2022 Monocytes/100 WBC (Bld) 9.8 % 0-10 [facility] Work Phone: Blood platelet mean volumeon 03-28-2022 Platelet mean volume (Bld) [Entitic vol] 12.0 fL 6.2-12.0 [facility] Work Phone: [phone] Determination of erythrocyte mean corpuscular volume (MCV)on 03-28-2022 MCV (RBC) [Entitic vol] 95.5 fL 80-94 [facility] Work Phone: [phone] Hematocrit Auto (Bld) [Volum e fraction]on 03-28-2022 Hematocrit (Bld) [Volume fraction] 40.2 % 40-54 [facility] Work Phone: [phone] Laboratory - Chemistry and C hemistry - challengeon 03-28-2022 ALP [Catalytic activity/Vol] 60 U/L 45-117 [facility] Work Phone: [phone] ALT [Catalytic activity/Vol] 35 U/L 16-61 [facility] Work Phone: [phone] CO2 [Moles/Vol] 28.0 mmol/L 21.0-32.0 [facility] Work Phone: [phone] Globulin (S) [Mass/Vol] 3.8 g/dL 2.2-4.2 [facility] Work Phone: [phone] Urea nitrogen/Creatinine [Mass ratio] 11.4 mg/mg 10-20 [facility] Work Phone: [phone] Laboratory - Hematology and Cell countson 03-28-2022 Erythrocyte distribution width (RBC) [Entitic vol] 55.7 fL 35.1-43.9 [facility] Work Phone: [phone] Erythrocyte distribution width (RBC) [Ratio] 15.8 % 11.6-14.6 [facility] Work Phone: [phone] Immature granulocytes/100 WBC (Bld) 0.300 % 0.0-0.9 [facility] Work Phone: [phone] Comment on above: IG% - Immature Granu locytes (promyelocytes, myelocytes and metamyelocytes) > 1% indicates that a LEFT SHIFT is Present. MCH (RBC) [Entitic mass] 30.6 pg 27.0-32.0 [facility] Work Phone: [phone] Nucleated RBC/100 WBC (Bld) [Ratio] 0 % 0-5 [facility] Work Phone: MCHC Auto (RBC) [Mass/Vol]on 03-28-2022 MCHC (RBC) [Mass/Vol] 32.1 g/dL 32-36 [facility] Work Phone: No Panel Informationon 03-28 Estimated GFR (MDRD) Amer 55 mL/min >60 [facility] Work Phone: Comment on above: GFR Calc Estimated GFR (MDRD) Non-Af Amer 45 mL/min >60 [facility] Work Phone: Comment on above: Non- GFR Calc Platelets bldon 03-28-2022 Platelets (Bld) [#/Vol] 202 10*3/uL 150-450 [facility] Work Phone: Serum or plasma albumin amanda urement (mass/volume)on 03-28-2022 Albumin [Mass/Vol] 3.5 g/dL 3.2-5.0 [facility] Work Phone: Serum or plasma albumin/glob ulin mass ratioon 03-28-2022 Albumin/Globulin [Mass ratio] 0.9 {ratio} 0.9-2.4 [facility] Work Phone: Serum or plasma calcium amanda urement (mass/volume)on 03-28-2022 Calcium [Mass/Vol] 8.5 mg/dL 8.5-10.1 [facility] Work Phone: Serum or plasma creatinine m easurement (mass/volume)on 03-28-2022 Creatinine [Mass/Vol] 1.58 mg/dL 0.70-1.30 [facility] Work Phone: Comment on above: The validity of the calculated GFR & GFRAA in patients over 70 years has not been determined. Clinical correlation is essential. Serum or plasma urea nitroge n measurement (mass/volume)on 03-28-2022 Urea nitrogen [Mass/Vol] 18 mg/dL 7-18 [facility] Work Phone: Thin prep Papanicolaou smear with manual screeningon 03-28-2022 Thin prep Papanicolaou smear with manual screening 22 U/L 15-37 [facility] Work Phone: Thin prep Papanicolaou smear with manual screening 5 5-15 [facility] Work Phone: Absolute lymphocyte counton 02-13-2022 Lymphocytes Auto (Unsp spec) [#/Vol] 2.00 10*3/uL 0.83-4.51 [facility] Work Phone: Basophil percentageon 2021 Basophils/100 WBC (Bld) 0.3 % 0-1 [facility] Work Phone: Chloride [Moles/Vol] 109 mmol/L 98-107 [facility] Work Phone: Eosinophils/100 WBC (Bld) 2.3 % 0-5 [facility] Work Phone: Glucose [Mass/Vol] 153 mg/dL 74-106 [facility] Work Phone: Comment on above: Fasting Glucose resu lt greater than or equal to 126 mg/dL suggests DIABETES MELLITUS per A.D.A. criteria. Neutrophils (Bld) [#/Vol] 4.6 10*3/uL 2.0-7.7 [facility] Work Phone: Neutrophils/100 WBC (Bld) 61.9 % 47-70 [facility] Work Phone: Potassium [Moles/Vol] 3.8 mmol/L 3.5-5.1 [facility] Work Phone: Sodium [Moles/Vol] 141 mmol/L 136-145 [facility] Work Phone: WBC (Bld) [#/Vol] 7.4 10*3/uL 4.4-11.0 [facility] Work Phone: Blood erythrocytes count (nu mber/volume)on 02-13-2022 RBC (Bld) [#/Vol] 4.47 10*6/uL 4.6-6.2 [facility] Work Phone: Blood hemoglobin measurement (mass/volume)on 02-13-2022 Hemoglobin (Bld) [Mass/Vol] 13.9 g/dL 13.0-16.5 [facility] Work Phone: Blood lymphocytes/100 leukoc yteson 02-13-2022 Lymphocytes/100 WBC (Bld) 27.2 % 19-41 [facility] Work Phone: Blood monocytes/100 leukocyt eson 02-13-2022 Monocytes/100 WBC (Bld) 8.2 % 0-10 [facility] Work Phone: Blood platelet mean volumeon 02-13-2022 Platelet mean volume (Bld) [Entitic vol] 11.1 fL 6.2-12.0 [facility] Work Phone: Determination of erythrocyte mean corpuscular volume (MCV)on 02-13-2022 MCV (RBC) [Entitic vol] 92.2 fL 80-94 [facility] Work Phone: Hematocrit Auto (Bld) [Volum e fraction]on 02-13-2022 Hematocrit (Bld) [Volume fraction] 41.2 % 40-54 [facility] Work Phone: Laboratory - Chemistry and C hemistry - challengeon 02-13-2022 CO2 [Moles/Vol] 28.0 mmol/L 21.0-32.0 [facility] Work Phone: Urea nitrogen/Creatinine [Mass ratio] 11.3 mg/mg 10-20 [facility] Work Phone: Laboratory - Hematology and Cell countson 02-13-2022 Erythrocyte distribution width (RBC) [Entitic vol] 54.5 fL 35.1-43.9 [facility] Work Phone: Erythrocyte distribution width (RBC) [Ratio] 15.9 % 11.6-14.6 [facility] Work Phone: Immature granulocytes/100 WBC (Bld) 0.100 % 0.0-0.9 [facility] Work Phone: Comment on above: IG% - Immature Granu locytes (promyelocytes, myelocytes and metamyelocytes) > 1% indicates that a LEFT SHIFT is Present. MCH (RBC) [Entitic mass] 31.1 pg 27.0-32.0 [facility] Work Phone: Nucleated RBC/100 WBC (Bld) [Ratio] 0 % 0-5 [facility] Work Phone: MCHC Auto (RBC) [Mass/Vol]on 02-13-2022 MCHC (RBC) [Mass/Vol] 33.7 g/dL 32-36 [facility] Work Phone: No Panel Informationon 02-13 Estimated GFR (MDRD) Amer 55 mL/min >60 [facility] Work Phone: Comment on above: GFR Calc Estimated GFR (MDRD) Non-Af Amer 45 mL/min >60 [facility] Work Phone: Comment on above: Non- GFR Calc Thyroid Stimulating Hormone (TSH) 3.71 uIU/mL 0.358-3.74 [facility] Work Phone: Platelets bldon 02-13-2022 Platelets (Bld) [#/Vol] 209 10*3/uL 150-450 [facility] Work Phone: Serum or plasma calcium amanda urement (mass/volume)on 02-13-2022 Calcium [Mass/Vol] 8.6 mg/dL 8.5-10.1 [facility] Work Phone: Serum or plasma creatinine m easurement (mass/volume)on 02-13-2022 Creatinine [Mass/Vol] 1.59 mg/dL 0.70-1.30 [facility] Work Phone: Comment on above: The validity of the calculated GFR & GFRAA in patients over 70 years has not been determined. Clinical correlation is essential. Serum or plasma urea nitroge n measurement (mass/volume)on 02-13-2022 Urea nitrogen [Mass/Vol] 18 mg/dL 7-18 [facility] Work Phone: Thin prep Papanicolaou smear with manual screeningon 02-13-2022 Thin prep Papanicolaou smear with manual screening 4 5-15 [facility] Work Phone: No Panel Informationon 01-11 Prostate Specific Antigen Total 6.33 ng/mL 0.0-4.0 [facility] Work Phone: Comment on above: This test was perfor med using the TPSA assay method for [employer] chemistry system. Values obtained with differentassay methods cannot be used interchangably.When changing PSA assays in the course of monitoring apatient, additional sequential testing should be carriedout to confirm baseline values. Absolute lymphocyte counton 12-23-2021 Lymphocytes Auto (Unsp spec) [#/Vol] 2.19 10*3/uL 0.83-4.51 [facility] Work Phone: Basophil percentageon 2021 Basophils/100 WBC (Bld) 0.4 % 0-1 [facility] Work Phone: Chloride [Moles/Vol] 110 mmol/L 98-107 [facility] Work Phone: Eosinophils/100 WBC (Bld) 2.3 % 0-5 [facility] Work Phone: Glucose [Mass/Vol] 134 mg/dL 74-106 [facility] Work Phone: Comment on above: Fasting Glucose resu lt greater than or equal to 126 mg/dL suggests DIABETES MELLITUS per A.D.A. criteria. Neutrophils (Bld) [#/Vol] 4.2 10*3/uL 2.0-7.7 [facility] Work Phone: Neutrophils/100 WBC (Bld) 57.5 % 47-70 [facility] Work Phone: Potassium [Moles/Vol] 3.6 mmol/L 3.5-5.1 [facility] Work Phone: Sodium [Moles/Vol] 142 mmol/L 136-145 [facility] Work Phone: WBC (Bld) [#/Vol] 7.3 10*3/uL 4.4-11.0 [facility] Work Phone: Blood erythrocytes count (nu mber/volume)on 12-23-2021 RBC (Bld) [#/Vol] 4.37 10*6/uL 4.6-6.2 [facility] Work Phone: Blood hemoglobin measurement (mass/volume)on 12-23-2021 Hemoglobin (Bld) [Mass/Vol] 13.2 g/dL 13.0-16.5 [facility] Work Phone: Blood lymphocytes/100 leukoc yteson 12-23-2021 Lymphocytes/100 WBC (Bld) 30.2 % 19-41 [facility] Work Phone: Blood monocytes/100 leukocyt eson 12-23-2021 Monocytes/100 WBC (Bld) 9.5 % 0-10 [facility] Work Phone: Blood platelet mean volumeon 12-23-2021 Platelet mean volume (Bld) [Entitic vol] 11.1 fL 6.2-12.0 [facility] Work Phone: Determination of erythrocyte mean corpuscular volume (MCV)on 12-23-2021 MCV (RBC) [Entitic vol] 91.3 fL 80-94 [facility] Work Phone: Glucose Glucometer (BldC) [M ass/Vol]on 12-23-2021 Glucose [Mass/Vol] 124 mg/dL 74-106 [facility] Work Phone: Comment on above: MANAGEMENT OF PATIEN T CARE PER NURSING PROTOCOL Hematocrit Auto (Bld) [Volum e fraction]on 12-23-2021 Hematocrit (Bld) [Volume fraction] 39.9 % 40-54 [facility] Work Phone: Laboratory - Chemistry and C hemistry - challengeon 12-23-2021 CO2 [Moles/Vol] 28.0 mmol/L 21.0-32.0 [facility] Work Phone: [phone] Urea nitrogen/Creatinine [Mass ratio] 20.1 mg/mg 10-20 [facility] Work Phone: [phone] Laboratory - Hematology and Cell countson 12-23-2021 Erythrocyte distribution width (RBC) [Entitic vol] 51.0 fL 35.1-43.9 [facility] Work Phone: [phone] Erythrocyte distribution width (RBC) [Ratio] 15.3 % 11.6-14.6 [facility] Work Phone: [phone] Immature granulocytes/100 WBC (Bld) 0.100 % 0.0-0.9 [facility] Work Phone: [phone] Comment on above: IG% - Immature Granu locytes (promyelocytes, myelocytes and metamyelocytes) > 1% indicates that a LEFT SHIFT is Present. MCH (RBC) [Entitic mass] 30.2 pg 27.0-32.0 [facility] Work Phone: [phone] Nucleated RBC/100 WBC (Bld) [Ratio] 0 % 0-5 [facility] Work Phone: [phone] MCHC Auto (RBC) [Mass/Vol]on 12-23-2021 MCHC (RBC) [Mass/Vol] 33.1 g/dL 32-36 [facility] Work Phone: [phone] Panel Informationon 12-23 Estimated Creatinine Clearance Calc 34.22 ml/min [facility] Work Phone: [phone] Estimated GFR (MDRD) Amer 51 mL/min >60 [facility] Work Phone: [phone] Comment on above: GFR Calc Estimated GFR (MDRD) Non-Af Amer 42 mL/min >60 [facility] Work Phone: [phone] Comment on above: Non- GFR Calc Platelets bldon 12-23-2021 Platelets (Bld) [#/Vol] 179 10*3/uL 150-450 [facility] Work Phone: [phone] Serum or plasma calcium amanda urement (mass/volume)on 12-23-2021 Calcium [Mass/Vol] 8.3 mg/dL 8.5-10.1 [facility] Work Phone: Serum or plasma creatinine m easurement (mass/volume)on 12-23-2021 Creatinine [Mass/Vol] 1.69 mg/dL 0.70-1.30 [facility] Work Phone: Comment on above: The validity of the calculated GFR & GFRAA in patients over 70 years has not been determined. Clinical correlation is essential. Serum or plasma urea nitroge n measurement (mass/volume)on 12-23-2021 Urea nitrogen [Mass/Vol] 34 mg/dL 7-18 [facility] Work Phone: Thin prep Papanicolaou smear with manual screeningon 12-23-2021 Thin prep Papanicolaou smear with manual screening 4 5-15 [facility] Work Phone: No Panel Informationon 12-21 Troponin I High Sensitivity 16 pg/mL 3.0-78.0 [facility] Work Phone: Comment on above: Please Note: New Vira t Units and Gender Specific Reference Ranges. For more information see Policy Stat Procedure [place] High Sensitivity Troponin (TNIH) and attachments. Absolute lymphocyte counton 12-13-2021 Lymphocytes Auto (Unsp spec) [#/Vol] 2.75 10*3/uL 0.83-4.51 [facility] Work Phone: Basophil percentageon 2021 Basophils/100 WBC (Bld) 0.2 % 0-1 [facility] Work Phone: Chloride [Moles/Vol] 107 mmol/L 98-107 [facility] Work Phone: Eosinophils/100 WBC (Bld) 2.0 % 0-5 [facility] Work Phone: Glucose [Mass/Vol] 125 mg/dL 74-106 [facility] Work Phone: Comment on above: Fasting Glucose resu lt from 100 to 125 mg/dL suggests IMPAIRED HOMEOSTASIS per A.D.A. criteria. Neutrophils (Bld) [#/Vol] 4.5 10*3/uL 2.0-7.7 [facility] Work Phone: Neutrophils/100 WBC (Bld) 53.9 % 47-70 [facility] Work Phone: [phone] Potassium [Moles/Vol] 3.8 mmol/L 3.5-5.1 [facility] Work Phone: [phone] Sodium [Moles/Vol] 140 mmol/L 136-145 [facility] Work Phone: WBC (Bld) [#/Vol] 8.3 10*3/uL 4.4-11.0 [facility] Work Phone: Blood erythrocytes count (nu mber/volume)on 12-13-2021 RBC (Bld) [#/Vol] 4.81 10*6/uL 4.6-6.2 [facility]: Blood hemoglobin measurement (mass/volume)on 12-13-2021 Hemoglobin (Bld) [Mass/Vol] 14.7 g/dL 13.0-16.5 [facility] Work Phone: Blood lymphocytes/100 leukoc yteson 12-13-2021 Lymphocytes/100 WBC (Bld) 33.0 % 19-41 [facility] Work Phone: Blood monocytes/100 leukocyt eson 12-13-2021 Monocytes/100 WBC (Bld) 10.7 % 0-10 [facility] Work Phone: Blood platelet mean volumeon 12-13-2021 Platelet mean volume (Bld) [Entitic vol] 10.9 fL 6.2-12.0 [facility] Work Phone: Determination of erythrocyte mean corpuscular volume (MCV)on 12-13-2021 MCV (RBC) [Entitic vol] 90.0 fL 80-94 [facility] Work Phone: Hematocrit Auto (Bld) [Volum e fraction]on 12-13-2021 Hematocrit (Bld) [Volume fraction] 43.3 % 40-54 [facility] Work Phone: INR in Blood by Coagulation assayon 12-13-2021 INR Coag (Bld) [Relative time] 1.1 {INR} [facility] Work Phone: Laboratory - Chemistry and C hemistry - challengeon 12-13-2021 CO2 [Moles/Vol] 29.0 mmol/L 21.0-32.0 [facility] Work Phone: Urea nitrogen/Creatinine [Mass ratio] 9.2 mg/mg 10-20 [facility] Work Phone: Laboratory - Coagulationon 0 12-13-2021 aPTT Coag (Bld) [Time] 37.3 s 24.1-36.2 [facility] Work Phone: PT Coag (PPP) [Time] 13.8 s 11.7-14.9 [facility] Work Phone: Laboratory - Hematology and Cell countson 12-13-2021 Erythrocyte distribution width (RBC) [Entitic vol] 50.0 fL 35.1-43.9 [facility] Work Phone: Erythrocyte distribution width (RBC) [Ratio] 15.1 % 11.6-14.6 [facility] Work Phone: Immature granulocytes/100 WBC (Bld) 0.200 % 0.0-0.9 [facility] Work Phone: Comment on above: IG% - Immature Granu locytes (promyelocytes, myelocytes and metamyelocytes) > 1% indicates that a LEFT SHIFT is Present. MCH (RBC) [Entitic mass] 30.6 pg 27.0-32.0 [facility] Work Phone: Nucleated RBC/100 WBC (Bld) [Ratio] 0 % 0-5 [facility] Work Phone: MCHC Auto (RBC) [Mass/Vol]on 12-13-2021 MCHC (RBC) [Mass/Vol] 33.9 g/dL 32-36 [facility] Work Phone: No Panel Informationon 12-13 Estimated GFR (MDRD) Amer 49 mL/min >60 [facility] Work Phone: Comment on above: GFR Calc Estimated GFR (MDRD) Non-Af Amer 41 mL/min >60 [facility] Work Phone: Comment on above: Non- GFR Calc Platelets bldon 12-13-2021 Platelets (Bld) [#/Vol] 199 10*3/uL 150-450 [facility] Work Phone: Serum or plasma calcium amanda urement (mass/volume)on 12-13-2021 Calcium [Mass/Vol] 9.1 mg/dL 8.5-10.1 [facility] Work Phone: Serum or plasma creatinine m easurement (mass/volume)on 12-13-2021 Creatinine [Mass/Vol] 1.74 mg/dL 0.70-1.30 [facility] Work Phone: Comment on above: The validity of the calculated GFR & GFRAA in patients over 70 years has not been determined. Clinical correlation is essential. Serum or plasma urea nitroge n measurement (mass/volume)on 12-13-2021 Urea nitrogen [Mass/Vol] 16 mg/dL 7-18 [facility] Work Phone: Thin prep Papanicolaou smear with manual screeningon 12-13-2021 Thin prep Papanicolaou smear with manual screening 4 5-15 [facility] Work Phone: Basophil percentageon 2021 Basophil percentage 2.9 mg/dL 2.5-4.9 [facility] Work Phone: Chloride [Moles/Vol] 109 mmol/L 98-107 [facility] Work Phone: Glucose [Mass/Vol] 127 mg/dL 74-106 [facility] Work Phone: Comment on above: Fasting Glucose resu lt greater than or equal to 126 mg/dL suggests DIABETES MELLITUS per A.D.A. criteria. Potassium [Moles/Vol] 3.7 mmol/L 3.5-5.1 [facility] Work Phone: Sodium [Moles/Vol] 142 mmol/L 136-145 [facility] Work Phone: Laboratory - Chemistry and C hemistry - challengeon 10-13-2021 CO2 [Moles/Vol] 29.0 mmol/L 21.0-32.0 [facility] Work Phone: Urea nitrogen/Creatinine [Mass ratio] 12.7 mg/mg 10-20 [facility] Work Phone: [phone] No Panel Informationon 10-13 Estimated Creatinine Clearance Calc 35.88 ml/min [facility] Work Phone: Estimated GFR (MDRD) Amer 58 mL/min >60 [facility] Work Phone: Comment on above: GFR Calc Estimated GFR (MDRD) Non-Af Amer 48 mL/min >60 [facility] Work Phone: Comment on above: Non- GFR Calc Serum or plasma albumin amanda urement (mass/volume)on 10-13-2021 Albumin [Mass/Vol] 3.8 g/dL 3.2-5.0 [facility] Work Phone: Serum or plasma calcium amanda urement (mass/volume)on 10-13-2021 Calcium [Mass/Vol] 9.0 mg/dL 8.5-10.1 [facility] Work Phone: [phone] Serum or plasma creatinine m easurement (mass/volume)on 10-13-2021 Creatinine [Mass/Vol] 1.50 mg/dL 0.70-1.30 [facility] Work Phone: Comment on above: The validity of the calculated GFR & GFRAA in patients over 70 years has not been determined. Clinical correlation is essential. Serum or plasma urea nitroge n measurement (mass/volume)on 10-13-2021 Urea nitrogen [Mass/Vol] 19 mg/dL 7-18 [facility] Work Phone: Urine creatinine measurement (mass/volume)on 10-13-2021 Creatinine (U) [Mass/Vol] 45.40 mg/dL NO RANGE EST. [facility] Work Phone: Urine protein measurement (m ass/volume)on 10-13-2021 Protein (U) [Mass/Vol] 65.4 mg/dL 0.0-11.8 [facility] Work Phone: Urine protein/creatinine mas s ratioon 10-13-2021 Protein/Creatinine (U) [Mass ratio] 1441 mg/g CRE 0-200 [facility] Work Phone: Absolute lymphocyte counton 09-26-2021 Lymphocytes Auto (Unsp spec) [#/Vol] 2.16 10*3/uL 0.83-4.51 [facility] Work Phone: Basophil percentageon 2020 Bilirubin [Mass/Vol] 0.30 mg/dL 0.20-1.00 [facility] Work Phone: Comment on above: For patients on eltr ombopag therapy, use of Dimension [place] TBIL is not recommended. Chloride [Moles/Vol] 107 mmol/L 98-107 [facility] Work Phone: Eosinophils/100 WBC (Bld) 3.4 % 0-5 [facility] Work Phone: Glucose [Mass/Vol] 171 mg/dL 74-106 [facility] Work Phone: Comment on above: Fasting Glucose resu lt greater than or equal to 126 mg/dL suggests DIABETES MELLITUS per A.D.A. criteria.Please note revised GLUCOSE reference range effective 2017. Neutrophils (Bld) [#/Vol] 2.8 10*3/uL 2.0-7.7 [facility] Work Phone: Potassium [Moles/Vol] 3.7 mmol/L 3.5-5.1 [facility] Work Phone: [phone] Protein [Mass/Vol] 7.5 g/dL 6.4-8.2 [facility] Work Phone: Sodium [Moles/Vol] 144 mmol/L 136-145 [facility] Work Phone: WBC (Bld) [#/Vol] 5.8 10*3/uL 4.4-11.0 [facility] Work Phone: Blood erythrocytes count (nu mber/volume)on 09-26-2021 RBC (Bld) [#/Vol] 4.35 10*6/uL 4.6-6.2 [facility] Work Phone: Blood hemoglobin measurement (mass/volume)on 09-26-2021 Hemoglobin (Bld) [Mass/Vol] 13.2 g/dL 13.0-16.5 [facility] Work Phone: [phone] Blood lymphocytes/100 leukoc yteson 09-26-2021 Lymphocytes/100 WBC (Bld) 37.1 % 19-41 [facility] Work Phone: Blood monocytes/100 leukocyt eson 09-26-2021 Monocytes/100 WBC (Bld) 10.0 % 0-10 [facility] Work Phone: Blood platelet mean volumeon 09-26-2021 Platelet mean volume (Bld) [Entitic vol] 10.7 fL 6.2-12.0 [facility] Work Phone: Determination of erythrocyte mean corpuscular volume (MCV)on 09-26-2021 MCV (RBC) [Entitic vol] 94.0 fL 80-94 [facility] Work Phone: Hematocrit Auto (Bld) [Volum e fraction]on 09-26-2021 Hematocrit (Bld) [Volume fraction] 40.9 % 40-54 [facility] Work Phone: Laboratory - Chemistry and C hemistry - challengeon 09-26-2021 ALP [Catalytic activity/Vol] 57 U/L 45-117 [facility] Work Phone: ALT [Catalytic activity/Vol] 35 U/L 16-61 [facility] Work Phone: [phone] CO2 [Moles/Vol] 30.0 mmol/L 21.0-32.0 [facility] Work Phone: [phone] Globulin (S) [Mass/Vol] 4.1 g/dL 2.2-4.2 [facility] Work Phone: [phone] Urea nitrogen/Creatinine [Mass ratio] 11.0 mg/mg 10-20 [facility] Work Phone: [phone] Laboratory - Hematology and Cell countson 09-26-2021 Basophils/100 WBC (Unsp spec) 0.3 % 0-1 [facility] Work Phone: [phone] Erythrocyte distribution width (RBC) [Entitic vol] 50.8 fL 35.1-43.9 [facility] Work Phone: [phone] Erythrocyte distribution width (RBC) [Ratio] 14.6 % 11.6-14.6 [facility] Work Phone: [phone] Immature granulocytes/100 WBC (Bld) 0.300 % 0.0-0.9 [facility] Work Phone: [phone] Comment on above: IG% - Immature Granu locytes (promyelocytes, myelocytes and metamyelocytes) > 1% indicates that a LEFT SHIFT is Present. MCH (RBC) [Entitic mass] 30.3 pg 27.0-32.0 [facility] Work Phone: [phone] Neutrophils/100 WBC (Bld) 48.9 % 47-70 [facility] Work Phone: [phone] Nucleated RBC/100 WBC (Bld) [Ratio] 0 % 0-5 [facility] Work Phone: [phone] MCHC Auto (RBC) [Mass/Vol]on 09-26-2021 MCHC (RBC) [Mass/Vol] 32.3 g/dL 32-36 [facility] Work Phone: No Panel Informationon 09-26 Estimated GFR (MDRD) Amer 60 mL/min >60 [facility] Work Phone: [phone] Comment on above: GFR Calc Estimated GFR (MDRD) Non-Af Amer 50 mL/min >60 [facility] Work Phone: Comment on above: Non- GFR Calc Platelets bldon 09-26-2021 Platelets (Bld) [#/Vol] 190 10*3/uL 150-450 [facility] Work Phone: Serum or plasma albumin amanda urement (mass/volume)on 09-26-2021 Albumin [Mass/Vol] 3.4 g/dL 3.2-5.0 [facility] [place] Work Phone: [phone] Serum or plasma albumin/glob ulin mass ratioon 09-26-2021 Albumin/Globulin [Mass ratio] 0.8 {ratio} 0.9-2.4 [facility] Work Phone: Serum or plasma calcium amanda urement (mass/volume)on 09-26-2021 Calcium [Mass/Vol] 8.8 mg/dL 8.5-10.1 [facility] [place] Work Phone: Serum or plasma creatinine m easurement (mass/volume)on 09-26-2021 Creatinine [Mass/Vol] 1.46 mg/dL 0.70-1.30 [facility] Work Phone: Comment on above: The validity of the calculated GFR & GFRAA in patients over 70 years has not been determined. Clinical correlation is essential. Serum or plasma urea nitroge n measurement (mass/volume)on 09-26-2021 Urea nitrogen [Mass/Vol] 16 mg/dL 7-18 [facility] Work Phone: [phone] Thin prep Papanicolaou smear with manual screeningon 09-26-2021 Thin prep Papanicolaou smear with manual screening 29 U/L 15-37 [facility] Work Phone: [phone] Thin prep Papanicolaou smear with manual screening 7 5-15 [facility] Work Phone: [phone] CASE MANAGEMon 02-24-2020 CASE MANAGEM HNO ID: [id number] Author: Brandee HolmanRn) Josesito RN Service: Care Management Author Type: Registered Nurse Type: Care Mgt Progress Note Filed: 02/24/2020 2:40 PM Note Text: CARE MANAGEMENT DISCHARGE NOTE SERVICE DATE: 02/24/2020 SERVICE TIME: 2:39 PM LOS: 2 days Admission Date: 02/22/2020 DISCHARGE ARRANGEMENT (list agency and phone number) Discharge Arrangement: Home Provider Name: isha Phone: na CAREGIVER ASSESSMENT: HANDOFF COMMUNICATION: TRANSPORTATION ARRANGEMENTS: Transportation Arrangements: Car ADDITIONAL CONTACT RESOURCES: . Pt is D/C to home with and no needs identified. SIGNATURE: Brandee Bellamy RN PATIENT NAME: Megan Gimenez DATE: February 24, 2020 TIME: 2:39 PM PAGER/CONTACT #: [phone] [facility] CASE MANAGEM HNO ID: [id number] Author: Nadine Ramirez Service: Care Management Author Type: ? 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 Our recommendations of care will be communicated by shared medical record. HPI: This is a 74 year old male with hx of afib on terminal operator eliquis, hypertension, hyperlipidemia, blind left eye, who is admitted after experiencing at least 2 falls, initial presentation to [facility], from where he was transferred to [facility]. Falls appear to be provoked, reports tripped over his dog and fell backwards, but it appears there have been frequent falls. Reason for transfer was due to abnormal movements which were witnessed at time of his arrival. CTH/C-spine were unrevealing. He was confused and disoriented. Admitted for observation and further workup. Testing notable for MRI brain which was unrevealing for acute process. EEG revealed intermittent slow activity, and several episodes of tremors did not correlate with any epileptiform activity. On my evaluation today, patient reports being at his baseline. He reports tremors are not new and an ongoing issue for past 2 years. OUTPATIENT MEDICATIONS isosorbide mononitrate ER (IMDUR) 60 mg 24 hr tablet Take 60 mg by mouth once daily. balsalazide (COLAZAL) 750 mg capsule Take 750 mg by mouth three times daily. cloNIDine HCl (CATAPRES) 0.3 mg tablet Take 0.3 mg by mouth three times daily. diltiazem CR (TIAZAC, TAZTIA XT) 360 mg 24 hr capsule Take 360 mg by mouth once daily. gabapentin (NEURONTIN) 600 mg tablet Take 600 mg by mouth twice daily. amiodarone (PACERONE) 100 mg tablet Take 200 mg by mouth once daily. apixaban (ELIQUIS) 5 mg (74 tabs) Take 5 mg by mouth twice daily. lisinopril (ZESTRIL, PRINIVIL) 40 mg tablet Take 40 mg by mouth once daily. hydrALAZINE (APRESOLINE) 100 mg tablet Take 100 mg by mouth three times daily. hydroCHLOROthiazide (HYDRODIURIL, ESIDRIX) 25 mg tablet Take 25 mg by mouth once daily. metFORMIN (GLUCOPHAGE) 1,000 mg tablet Take 1,000 mg by mouth twice daily with meals. rosuvastatin (CRESTOR) 20 mg tablet Take 20 mg by mouth once daily. DULoxetine (CYMBALTA) 60 mg capsule Take 60 mg by mouth once daily. esomeprazole (NEXIUM) 20 mg capsule Take 20 mg by mouth DAILY (6 AM). Ipratropium [place] (ATROVENT) 0.03 % nasal spray Use 1 [place] in the nose as directed. glimepiride (AMARYL) 2 mg tablet Take 2 mg by mouth once daily. MEDICAL HISTORY PAST MEDICAL HISTORY Diagnosis Date - Atrial fibrillation (HCC) - Colitis - Dementia (HCC) - Diabetes (HCC) - HLD (hyperlipidemia) - HTN (hypertension) - Rheumatoid arthritis (HCC) SURGICAL HISTORY No past surgical history on file. SOCIAL HISTORY Social History Tobacco Use - Smoking status: Not on file Substance Use Topics - Alcohol use: Not on file - Drug use: Not on file FAMILY HISTORY FAMILY HISTORY Problem Relation Age of Onset - Heart disease Mother - Diabetes Mother - Diabetes Sister - Heart disease Brother ALLERGIES ALLERGIES Allergen Reactions - Asprin [Aspirin] Swelling - Morphine (Pf) Swelling REVIEW OF SYSTEMS: GENERAL: No fevers or irritability. Normal sleep, appetite and activity HEENT: Negative for headaches, No problems with hearing or vision, no nose bleeds or other nasal problems. NECK: Negative for stiffness, lumps or significant neck swelling RESPIRATORY: Negative for cough, wheezing or respiratory distress. CARDIOVASCULAR: Negative for chest pain, syncope, lightheadness or heart racing. GI: Negative for abdominal discomfort, blood in stools or black stools or change in bowel habits : No history of dysuria, frequency or incontinence MUSCULOSKELETAL: Negative for joint pain or swelling, back pain or muscle pain. SKIN: Negative for lesions, rash, and itching. NEURO: See HPI PHYSICAL EXAM: Vital Signs: BP 155/63 Pulse 62 Temp 36.5 ?C (97.7 ?F) (Oral) Resp 18 Ht 182.9 cm (6' 0.01) Wt 86.4 kg (190 lb 7.6 oz) SpO2 95% BMI 25.83 kg/m? In no acute distress. HEENT normal. Pulses are palpable bilaterally. Patient's language is intact to comprehension and repetition. Speech is fluent. Mood is appropriate. Fund of knowledge is adequate.Patient is aware and oriented. Follows commands. Cranial Nerves: no vision OS. Visual kuo are full to confrontatioOD. Facial sensation is intact. Facial muscles are symmetric and there is no hyperacusis. Hearing is intact to finger rub bilaterally. Tongue and uvula are midline. Shoulder shrug is intact and symmetric. Motor exam reveals normal bulk and tone. Patient had exaggerated tremulous movement upon waking up. Attempts to obtain reflexes were met with exaggerated non-physiological reflexes even at sites not meant to elicit reflexes. Strength testing showed normal and symmetric strength in all extremities. Sensation is intact to fine touch and sharp touch. Gait is not assessed due to fall precautions. LABS/DATA: WBC Date Value 02/23/2020 8.26 thou/cmm 02/22/2020 6.54 thou/cmm 04/06/2004 5 to 10 /hpf RBC (mil/cmm) Date Value 02/23/2020 4.16 02/22/2020 3.69 Platelet Count (thou/cmm) Date Value 02/23/2020 240 02/22/2020 212 BUN (mg/dL) Date Value 02/23/2020 15 02/22/2020 22 Creatinine (mg/dL) Date Value 02/23/2020 1.23 02/22/2020 1.42 No results found for: NEUTP, ABSNEUT, LYMPHP, ABSLYMPH, ABSMONO, EODINP, ABSEOSIN, BASOP, ABSBASO Lab Results Component Value Date PLT 240 02/23/2020 HB 12.1 02/23/2020 HCT 37.1 02/23/2020 ALB 3.5 02/22/2020 CA 8.3 02/23/2020 TBILI 0.2 02/22/2020 ALKPHOS 44 02/22/2020 AST 48 02/22/2020 GLUC 86 02/23/2020 BUN 15 02/23/2020 NA 144 02/23/2020 K see below 02/23/2020 CHLOR 105 02/23/2020 CO2 25 02/23/2020 ANION 14 02/23/2020 ALT 35 02/22/2020 No results found for: WSR, CRP, IGG No results found for: USCRP No results found for: CHOL No results found for: LDL No results found for: HDL No results found for: TG Hemoglobin A1C (%) Date Value 02/22/2020 6.1 IMAGING: MRI brain 1. ?No acute intracranial abnormality 2.Minimal deep white matter changes left centrum semiovale and left cerebral peduncle. 3.Moderate degree of chronic right-sided sphenoid sinusitis. 4.Nonspecific increased distention of the left optic nerve sheath complex with increase perioptic fluid. ?Otherwise, no intraconal or extraconal mass. ?Correlate with clinical symptoms ASSESSMENT: 74 M with falls and tremors/myoclonic activity which seems functional in nature. MRI and lab work without obvious abnormality. No concern for epileptic activity given these events were captured on EEG. No further testing at this time. Outpatient follow up with PCP, could consider follow up at functional movement disorder clinic at [facility] main campus. PT/OT and disposition as recommended. Will sign off. Please page/call with questions. Arnaud Llanes MD Staff Neurologist Arnaud Llanes MD [facility], Department of Neurology CC: Referring Physician: No referring provider defined for this encounter. PCP: Jayme Yang MD [address] [phone] Normal [facility] Glucose Meteron 02-24-2020 Glucose [Mass/Vol] 138 mg/dL High 70-99 [facility] Comment on above: Result Comment: RN N OTIFIED Performed By: #### G LMET #### [place] [address] PLAN OF CAREon 02-24-2020 PLAN OF CARE HNO ID: [id number] Author: Morena Szymanski (Pharmacist) Service: Pharmacy Author Type: Pharmacist Type: Plan of Care Filed: 02/24/2020 5:10 PM Note Text: DISCHARGE MEDICATION REVIEW AND COUNSELING BY PHARMACY Patient Name: Megan Gimenez Account #: Data Unavailable Admission Date: 02/22/2020 Date of Contact: February 24, 2020 Time of Contact: 5:03 PM LEARNERS Persons Present: Patient Primary Learner: Patient Medication list was reviewed by a Pharmacist for drug interactions or drug related problems:Yes Patient refused medication counseling. - Medication reconciliation reviewed. Offer to provide medication education was provided. Pt refused. He expresses frustration with the care he has received. He does not agree with not being able to use his own home medications or that we have substituted to hospital formulary products. He disagreed with my explanation of patient safety being behind the hospital protocol of not allowing home medications. READINESS TO LEARN COGNITIVE ABILITY:Alert and oriented MOTIVATION TO LEARN:Disinterested / avoidant FAMILY SUPPORT:Unable to assess - Family not present INSTRUCTION PROVIDED TO:Patient PATIENT LEARNS BEST BY:Individual Instruction FACTORS AFFECTING LEARNING:None PHYSICAL LIMITATIONS AFFECTING LEARNING:None LEARNING RESPONSE PATIENT / FAMILY RESPONSE:Does not verbalize understanding: Unable to assess as he declined counseling MORENA SZYMANSKI, PHARMACIST February 24, 2020 5:03 PM Medication List START taking these medications polyethylene glycol 3350 17 gram packet Commonly known as: MIRALAX, GLYCOLAX Take 1 Packet by mouth once daily for 3 days. Start taking on: February 25, 2020 senna-docusate 8.6-50 mg per tablet Commonly known as: SENNA-S Take 2 tablets by mouth twice daily for 3 days. CONTINUE taking these medications amiodarone 100 mg tablet Commonly known as: PACERONE apixaban 5 mg (74 tabs) Commonly known as: ELIQUIS balsalazide 750 mg capsule Commonly known as: COLAZAL cloNIDine HCl 0.3 mg tablet Commonly known as: CATAPRES diltiazem CR 360 mg 24 hr capsule Commonly known as: TIAZAC, TAZTIA XT DULoxetine 60 mg capsule Commonly known as: CYMBALTA esomeprazole 20 mg capsule Commonly known as: NexIUM gabapentin 600 mg tablet Commonly known as: NEURONTIN glimepiride 2 mg tablet Commonly known as: AMARYL hydrALAZINE 100 mg tablet Commonly known as: APRESOLINE hydroCHLOROthiazide 25 mg tablet Commonly known as: HYDRODIURIL, ESIDRIX Ipratropium [place] 0.03 % nasal spray Commonly known as: ATROVENT isosorbide mononitrate ER 60 mg 24 hr tablet Commonly known as: IMDUR lisinopril 40 mg tablet Commonly known as: ZESTRIL, PRINIVIL metFORMIN 1,000 mg tablet Commonly known as: GLUCOPHAGE rosuvastatin 20 mg tablet Commonly known as: CRESTOR Where to Get Your Medications These medications were sent to [facility] [address] [place] [address] ? polyethylene glycol 3350 17 gram packet ? senna-docusate 8.6-50 mg per tablet Normal [facility] THERAPY NTon 02-24-2020 THERAPY NT HNO ID: [id number] Author: Mamie (Optometrist Owner) FELY Manzanares/ALESHIA Service: Speech/Swallow Author Type: Speech Language Pathologist Type: Therapy (PT/OT/Speech/Resp) Filed: 02/24/2020 12:37 PM Note Text: Speech Therapy Treatment SERVICE DATE: 02/24/2020 SERVICE TIME: 1115 to 1132 ROOM: [place] [address] Nursing Recommendations: Reinforce use of swallowing strategies Diet Recommendations: Regular Consistency Thin Liquids IDDSI Level 0 Swallowing Precautions Recommendations: Alert (patient should be fully alert for P.O. intake) Sit upright 90 degrees for all PO Supervision/Assistance for meals Small Bite/Sip Recommended Consults: PT and OT Results and Recommendations Discussed With: Patient;Nurse Recommended Discharge Disposition: Home IMPRESSION: Patient demonstrates oral dysphagia which is mildly impacting his/her ability to effectively maintain adequate nutrition and hydration and/or airway safety. Patient more alert and with greater oral mobility. Patient able to chew and swallow regular textured foods and thin liquids. Recommend continue regular diet. Patient will not need speech therapy after discharge. Rehabilitation Precautions: Aspiration Precautions Isolation Type: None ASSESSMENT: Patient is awake, alert and talkative He reports not feeling well in general; constipated Speech is more intelligible today Lingual protrusion is strong and coordinated 10/10 trials - greater oral mobility today Lingual elevation is strong and coordinated 9/10 trials - greater oral mobility today Able to swallow thin liquids from straw without signs/symptoms of aspiration Able to chew a dry solid without oral residuals today - improved and coordinated chewing and swallowing Recommend continue regular textured diet and thin liquids Tolerated Full Session Goals for Plan of Care: Swallow Goals: Patient will tolerate Regular Consistency diet consistency while utilizing compensatory/swallowing strategies given minimal cues in 90% of trials so that the patient will minimize the signs/symptoms of dysphagia. Progressing 02/24/2020 Patient will tolerate Thin Liquids IDDSI Level 0 consistency while utilizing compensatory/swallowing strategies given minimal cues in 90% of trials so that the patient will minimize the signs/symptoms of dysphagia. Progressing 02/24/2020 Patient will demonstrate adequate return of knowledge of all compensatory strategies/instruction to effectively assist the patient in immediate safety with oral intake and swallowing. - small bites/sips Therapeutic objectives: Oral pharyngeal strengthening - see above 02/24/2020 Patient /Caregiver Goals: Eat/Drink Without Restrictions Progress Toward Goals: Progressing as expected Speech Rehab Potential: Good PLAN: Treatment Frequency (times per week): 2 Current admission Treatment Interventions: Dysphagia Management Plan of Care Developed with: Patient TREATMENT INTERVENTIONS: Therapy Diagnosis: Dysphagia, oral phase Interventions Provided: Dysphagia Therapy (26332) $ Dysphagia Therapy (60055) Billed Units: 1 unit Skilled Interventions: Provided education related to a typical swallowing mechanism in a compare and contrast manner compared to this patient's current skill set. , Educated and advised patient / caregiver on texture and liquid consistency recommendations., Instructed patient / caregiver on recommended compensatory strategies to maximize safety with oral intake while maintaining nutrition, hydration and medication stability. Total Treatment Time (minutes): 17 SUBJECTIVE: Current Hospital Course: Chart reviewed and no significant medical updates relevant to therapy were noted Reason for Speech Therapy Consult: concern for aspiration; assess swallow Relevant Past Medical History: none available Patient Report: I am not feeling good in general today. Home Environment Prior Functional Level: Within Functional Limits Assistance Available: PRN Prior Swallowing Function/Diet Textures: Regular Consistency;Thin Liquids IDDSI Level 0 Please see discipline specific clinical documentation flowsheet for complete details for this therapy evaluation/treatment. SIGNATURE: Mamie Manzanares CCC-FIREARMS EXPERT PATIENT NAME: Megan Gimenez DATE: February 24, 2020 TIME: 12:18 PM Normal [facility] THERAPY NT HNO ID: [id number] Author: Dianna (Pt) Yaw Service: Physical Therapy Author Type: Physical Therapist Type: Therapy (PT/OT/Speech/Resp) Filed: 02/24/2020 12:05 PM Note Text: Physical Therapy Evaluation SERVICE DATE: 02/24/2020 SERVICE TIME: 1130 to 1155 ROOM: [place] [address] Recommended Discharge Disposition: Home Recommended Discharge Disposition Comments: Patient says his feet are sore from not using them,but otherwis he feelsgood PT Recommendations to Nursing: Ambulate without device;To bathroom;Transfer to/from chair;OOB for Meals PT 6 Clicks Score: 21 Precautions/Activity Restrictions: Fall Risk Isolation Type: None ASSESSMENT : This patient was admitted for tripping over dog and falling, has the past medical history of dementia, RA impacting current functional level, as well as the social factors complicating the discharge of has not been allowed out of bed here so heisstiff. This patient is near baseline functioning of walking indep and will benefit from continued skilled therapy in the hospital for treatment of the following body systems/impairments: musculoskeletal, integumentary, cardiopulmonary, neuromuscular (gait, transfers, bed mobility, balance, endurance, safety and strengthening). Patient Disposition at Start of Session: Supine in Bed Patient Disposition at End of Session: OOB in Chair Tolerated Full Session Physical Therapy Problem List: Education Deficit;Safety Deficits Patient /Caregiver Goals: Go Home Goals for Plan of Care: Able to perform HEP with: Independent Transfer supine to/from sit with: Independent Transfer sit to/from stand with: Independent Ambulate with: Independent Distance: 50 Device: No Device Rehab Potential: Excellent PLAN: Treatment Frequency (times per week): 5(3-5) Current admission Treatment Interventions: Education;Strengthening;Fu nctional Mobility Training;Balance Training Plan of Care developed with: Patient TREATMENT INTERVENTIONS: Therapy Diagnosis: Reduced mobility-other Interventions Provided: Evaluation;Therapeutic Exercise (75197) $ Evaluation-Moderate (87710) Billed Units: 1 unit History and examination of body systems see assessment section above. This patient?s clinical presentation is evolving. The patient required a moderate complexity evaluation. Therapeutic Exercise (00151) Treatment Minutes: 8 1 unit Skilled Intervention(s): walking in the roomandhall for exercise. He was encouraged to be up in the chair throughout the day and to begin to walk to the bathroom to loosen up and get prepared for discharge. Total Timed Code Treatment Minutes: 8 Total Treatment Time (minutes): 25 SUBJECTIVE: Current Hospital Course: Chart reviewed; tripped over dog,EEG negative, questionable functionaltremors Reason for Physical Therapy Consult : mobility Patient Report: Patient has sorefeet but no other complaints Home Environment Patient Lives With: Spouse Assistance Available: 24 Hour Entry To Home: Ramp Prior Functional Level: Within Functional Limits Prior Functional Level Comments: does his own yard work OBJECTIVE: Range of Motion: WFL Strength: WFL CURRENT FUNCTIONAL STATUS: Current Functional Mobility Assist Level Additional Information Rolling Independent Supine to Sit Independent Sit to Supine Independent Scooting Sit to Stand Contact Guard Assistance Stand to Sit Contact Guard Assistance Bed to Chair Toilet/Commode Gait Contact Guard Assistance Gait Device: None Gait Distance (feet): 50 x 2 Stairs Curb Step Car Transfer General Deviations/Observations: Dipika decreased(sore feet from arthritis) Balance: Static Sitting;Dynamic Sitting;Static Standing;Dynamic Standing Static Sitting Balance: Good Patient able to maintain balance without handhold support, limited postural sway Dynamic Sitting Balance: Good Patient accepts moderate challenge, able to maintain balance while picking up object off floor Static Standing Balance: Good Patient able to maintain balance without handhold support, limited postural sway Dynamic Standing Balance: Fair Patient accepts minimal challenge, able to maintain balance while turning head/trunk JH-HLM: 7: Walk 25 feet or more Please see discipline specific clinical documentation flowsheet for complete details for this therapy evaluation/treatment. SIGNATURE: Dianna Tidwell PT PATIENT NAME: Megan Gimenez DATE: February 24, 2020 TIME: 12:01 PM Normal [facility] Basic Metabolic Panelon 05-2 Anion gap [Moles/Vol] 14 mmol/L Normal 9-18 [facility] Comment on above: Performed By: #### B MP ####[facility] [place], [place] [address] Calcium [Mass/Vol] 8.3 mg/dL Low 8.5-10.2 [place] [facility] Comment on above: Performed By: #### B MP ####[facility] [place], [place] [address] Chloride [Moles/Vol] 105 mmol/L Normal 97-105 [facility] Comment on above: Performed By: #### B MP ####[facility] [place], [place] [address] CO2 Blood 25 mmol/L Normal 22-30 [facility] Comment on above: Performed By: #### B MP ####[facility] [place], [place] [address] Creatinine [Mass/Vol] 1.23 mg/dL High 0.73-1.22 [facility] Comment on above: Performed By: #### B MP ####[facility] [place], [place] [address] Glucose [Mass/Vol] 86 mg/dL Normal 74-99 [facility] Comment on above: Result Comment: The [place] Diabetes Association (ADA) provides guidance for cutoff values for fasting glucose and random glucose. The ADA defines fasting as no caloric intake for at least 8 hours.Fasting plasma glucose results between 100 to 125 mg/dL indicate increased risk for diabetes (prediabetes). Fasting plasma glucose results greater than or equal to 126 mg/dL meet the criteria for diagnosis of diabetes. In the absence of unequivocal hyperglycemia, results should be confirmed by repeat testing. In a patient with classic symptoms of hyperglycemia or hyperglycemic crisis, random plasma glucose results greater than or equal to 200 mg/dL meet the criteria for diagnosis of diabetes. Reference: Standards of Medical Care in Diabetes 2016; [place] Diabetes Association. Diabetes Care. 2016;39(Suppl 1). Performed By: #### B MP ####[facility] [place], [place] [address] Potassium [Moles/Vol] see below Normal 3.7-5.1 [facility] Comment on above: Result Comment: Unab le to assay. Specimen Hemolyzed Performed By: #### B MP ####[facility] [place] [address] Sodium [Moles/Vol] 144 mmol/L Normal 136-144 [facility] Comment on above: Performed By: #### B MP ####[place] [address] Urea nitrogen [Mass/Vol] 15 mg/dL Normal 9-24 [facility] Comment on above: Performed By: #### B MP ####[place] [address] Hemogramon 02-23-2020 Erythrocyte distribution width (RBC) [Ratio] 16.6 % High 11.6-14.4 [facility] Comment on above: Performed By: #### C BC1 ####[place] [address] Hematocrit (Bld) [Volume fraction] 37.1 % Low 40.1-51.0 [facility] Comment on above: Performed By: #### C BC1 ####[place] [address] Hemoglobin (Bld) [Mass/Vol] 12.1 g/dL Low 13.7-17.5 [facility] Comment on above: Performed By: #### C BC1 ####[place] [address] MCH (RBC) [Entitic mass] 29.1 pg Normal 25.7-32.2 [facility] Comment on above: Performed By: #### C BC1 ####[place] [address] MCHC (RBC) [Mass/Vol] 32.6 % Normal 32.3-36.5 [facility] Comment on above: Performed By: #### C BC1 ####[place] [address] MCV (RBC) [Entitic vol] 89.2 fL Normal 83.2-95.6 [facility] Comment on above: Performed By: #### C BC1 ####[facility] [place], [place] [address] Platelet mean volume (Bld) [Entitic vol] 11.2 fL Normal 8.7-12.0 [facility] Comment on above: Performed By: #### C BC1 ####[facility] [place], [place] [address] Platelets (Bld) [#/Vol] 240 thou/cmm Normal 141-365 [facility] Comment on above: Performed By: #### C BC1 ####[facility] [place], [place] [address] RBC (Bld) [#/Vol] 4.16 mil/cmm Low 4.63-6.08 [facility] Comment on above: Performed By: #### C BC1 ####[facility] [place], [place] [address] RDW SD 53.9 fl High 36.1-45.8 [facility] Comment on above: Performed By: #### C BC1 ####[facility] [place], [place] [address] WBC (Bld) [#/Vol] 8.26 thou/cmm Normal 4.23-9.07 [facility] Comment on above: Performed By: #### C BC1 ####[facility] [place], [place] [address] MDRD GFRon 02-23-2020 GFR/1.73 sq M predicted among non-blacks MDRD (S/P/Bld) [Vol rate/Area] 57.28 mL/min/{1.73_m2} Normal >60mL/min/ 1.73m2 [facility] Comment on above: Result Comment: If t he patient is , multiply the result by 1.210. Performed By: #### G LMET #### [facility] [place], [place] [address] Magnesium Bloodon 02-23-2020 Magnesium [Mass/Vol] 1.7 mg/dL Normal 1.7-2.3 [facility] Comment on above: Performed By: #### M AG ####[facility] [place] [address] NURSING PROGon 02-23-2020 NURSING PROG HNO ID: [id number] Author: Danielle (Rn) KRZYSZTOF Sandoval Service: ? Author Type: Registered Nurse Type: Nursing Progress Note Filed: 02/23/2020 4:12 AM Note Text: Nursing Progress Note Patient Name: Megan Gimenez Patient Location: [place] [id number]- Daily Note: 0012; RN paged sound [id number] SCOUT SNIPER Jimmy to come see pt due to the pts seizure-like activity. Jimmy stated to administer the ativan and not to give pt tylenol for pain due to pt being unable to state where the pain is located and its severity. 0330; Pt bed alarm went off. RN arrived in room with another RN to find pt sitting at the end of the bed agitated and yelling. Pt yells at RN, I have RA and need my Tylenol, and to get up and walk around the room now!! You have no idea what it is like to lay in a bed for hours without pain medication like I take at home! Pt proceeds to use harsh words towards RN and another RN, stating he will be going back to [facility] tomorrow morning. Pt continues to refuse to answer any orientation questions for RN. RN will continue to monitor. This note was completed by: Danielle Sandoval RN [facility] PLAN OF CAREon 02-23-2020 PLAN OF CARE HNO ID: [id number] Author: Arnaud Llanes MD Service: Neurology Stroke Author Type: Physician Type: Plan of Care Filed: 02/23/2020 2:55 PM Note Text: Consult received on patient with tremors and fall, tremors ongoing for 2 years Exam with functional features, exaggeration of tremors and reflexes, do not suspect neurological etiology, MRI/EEG reviewed and unrevealing. Do not feel further testing warranted. Full note to follow. Arnaud Llanes MD Staff Neurologist [facility] PROGRESSon 02-23-2020 PROGRESS HNO ID: [id number] Author: Laureano Linton Service: Hospital Medicine Author Type: Physician Type: Progress Notes Filed: 02/23/2020 3:15 PM Note Text: DEPARTMENT OF HOSPITAL MEDICINE PROGRESS NOTE SERVICE DATE: 02/23/2020 SERVICE TIME: 3:01 PM Hospital Medicine/Primary Attending: Laureano Linton MD NIGHT AND WEEKEND COVERAGE: After 7pm please page [phone] CHIEF COMPLAINT: Tremors SUBJECTIVE: Patient is awake and alert and oriented ?2. He is off on the time. He is conversant. He is not having any involuntary movement at this time. Suspect yesterday's movements were not due to neuropathology. Patient does remember falling and hitting his head on the concrete and then again on a wooden floor. He is not currently complaining of any headache or neck pain. No muscle paralysis or paresthesias. OBJECTIVE: PHYSICAL EXAM: BP 159/80 Pulse 66 Temp (Src) 98.4 (Oral) Resp 16 Ht 6' .008 (1.83m) Wt 190 lb 7.6 oz (86.4kg) SpO2 94% BMI 25.83 kg/(m2). O2 Therapy: Room Air, Liters: 2 General - AANDOx2, NAD, Calm CV - RRR S1 S2, No M/R/G RESP - CTA B/L No wheezes, ronchi, rales ABD - soft, NT, ND +BS EXT - no gross joint deformity, no clubbing, cyanosis, edema NEURO - CN II-XII grossly intact, muscle strength is 5 over 5 bilaterally. He is actually not having a tremor at this time. MEDICATIONS: Current Facility-Administered Medications Medication Dose Route Frequency - NaCl 0.9% 2-10 mL 2-10 mL INTRAVENOUS q 12 H - LORazepam 1 mg injection (ATIVAN) 1 mg INTRAVENOUS q 5 MIN PRN - dextrose 40 % 15 g 15 g ORAL PRN Or - glucagon 1 mg injection (GLUCAGEN) 1 mg INTRAMUSCULAR PRN Or - dextrose 50% in water 25 mL syringe 12.5 g INTRAVENOUS PRN - insulin lispro pen (rapid acting) (HumaLOG KWIKPEN) SUBCUTANEOUS w MEALS - insulin lispro pen (rapid acting) (HumaLOG KWIKPEN) SUBCUTANEOUS AT BEDTIME - amiodarone 200 mg tab(s) (PACERONE) 200 mg ORAL DAILY - cloNIDine HCl 0.3 mg tab(s) (CATAPRES) 0.3 mg ORAL TID - hydrALAZINE 100 mg tab(s) (APRESOLINE) 100 mg ORAL TID - diltiazem CD 360 mg cap(s) (CARDIZEM CD, CARTIA XT) 360 mg ORAL DAILY - balsalazide 2,250 mg cap(s) (COLAZAL) 2,250 mg ORAL BID - isosorbide mononitrate ER 30 mg tab(s) (IMDUR) 30 mg ORAL DAILY - DULoxetine 60 mg cap(s) (CYMBALTA) 60 mg ORAL DAILY - hydrALAZINE 20 mg injection (APRESOLINE) 20 mg INTRAVENOUS q 4 H PRN - apixaban 5 mg tab(s) (ELIQUIS) 5 mg ORAL BID - atorvastatin 40 mg tab(s) (LIPITOR) 40 mg ORAL AT BEDTIME - pantoprazole DR 20 mg tab(s) (PROTONIX) 20 mg ORAL DAILY (6 AM) - acetaminophen 325-650 mg tab(s) (TYLENOL) 325-650 mg ORAL q 6 H PRN DATA: Diagnostic tests reviewed for today's visit: CBC: Recent Labs 02/23/20 0413 WBC 8.26 RBC 4.16* HB 12.1* HCT 37.1* PLT 240 MCV 89.2 MCH 29.1 MPV 11.2 RDW 16.6* CMP: Recent Labs 02/23/20 0413 NA 144 K see below CHLOR 105 CO2 25 BUN 15 CREAT 1.23* GLUC 86 CA 8.3* MG 1.7 ANION 14 IMPRESSION: 1. ?No acute intracranial abnormality 2.Minimal deep white matter changes left centrum semiovale and left cerebral peduncle. 3.Moderate degree of chronic right-sided sphenoid sinusitis. 4.Nonspecific increased distention of the left optic nerve sheath complex with increase perioptic fluid. ?Otherwise, no intraconal or extraconal mass. ?Correlate with clinical symptoms Ems Manager: HARDIK ? Transcribe Date/Time: Feb 22 2020 ?3:41P Dictated by : FELICITAS MAY MD This examination was interpreted and the report reviewed and electronically signed by: FELICITAS MAY MD on Feb 22 2020 ?3:58PM ?EST Results-Findings * * *Final Report* * * DATE OF EXAM: Feb 22 2020 ?3:13PM ? AKM ? 0294 ?- ?MRI BRAIN WO IVCON ?/ PROCEDURE REASON: Seizure, new, nontraumatic, >40 yrs ?? ? * * * * Physician Interpretation * * * * ?EXAMINATION: ?MRI BRAIN WO IVCON CLINICAL HISTORY: ?Trauma, anticoagulated TECHNIQUE: ?Routine noncontrast MRI protocol including diffusion images. MQ: MRBWO_2 COMPARISON: 02/22/[address] CTA head and neck 02/21/2020 from outside center RESULT: Acute Change: ? There is no evidence of restricted diffusion to suggest an acute infarct. Hemorrhage: ? ?No evidence of prior parenchymal hemorrhage on the gradient echo images. Mass Lesion/ Mass Effect: ? ?No evidence of an intracranial mass or extra-axial fluid collection. ?No significant mass effect. Chronic Change: Minimal deep white matter changes left centrum semiovale and left cerebral peduncle. Parenchyma: ? No significant volume loss for age. Ventricles: ? ? Normal caliber and morphology. Skull Base: ? ?Hypothalamic and pituitary region are grossly normal. ? Craniocervical junction is normal. No significant marrow replacement process. Vasculature: ? ?Major intracranial arterial structures, and dural venous sinuses show typical flow void, suggesting patency by spin echo criteria. Other: ?Moderate degree of chronic right-sided sphenoid sinusitis. ? Chronic mucosal changes posterior left maxillary sinus. ?No fluid levels are seen. ?Temporal and mastoid bones are clear.. ?Orbits: Nonspecific increased distention of the left optic nerve sheath complex. ?Otherwise, no intraconal or extraconal mass. Assessment/Plan #new onset tremor, concern for seizure -CT of head negative, MRI result noted above. -EEG shows no evidence of seizure activity. -seizure precautions -neuro checks -consult to neurology appreciated -PRN ativan ? #mechanical fall -Likely has mild traumatic brain injury. There should be no permanent long-term sequelae from this. ? #hypokalemia -replace ? #DAY v CKD -hold CED and HCTZ -trend while inpatient ? #NIDDM -hold metformin and give SSI ? #hx atrial fibrillation -EKG showed NSR -continue apixaban, amiodarone -diltiazem with hold parameters -monitor on telemetry ? #HTN -will continue clonidine, diltiazem and hydralazine -hold lisinopril and HCTZ ? #HLD -statin ? Will need PT/OT eval prior to discharge VTE Prophylaxis: Patient is already anti-coagulated. Disposition: Home Tomorrow Plan of care discussed with: Provider, RN, Patient SIGNATURE: Laureano Linton MD PATIENT NAME: Megan Gimenez DATE: February 23, 2020 TIME: 3:01 PM PAGER/CONTACT #: [phone] [facility] PROGRESS HNO ID: [id number] Author: Shiv Serrano) JUSTA Brown.EMMANUEL Service: Hospital Medicine Author Type: Nurse Practitioner Type: Progress Notes Filed: 02/23/2020 12:29 AM Note Text: Paged to bedside by nursing. Concerns for possible seizure activity. Upon arrival patient is seen having myoclonus. Nursing was instructed to give 0.5 lorazepam. Prior to administration the jerks had stopped and during education at the bedside I instructed nursing that when I mention his myoclonic jerks if I mentioned them that they may be likely to return and at that time they did and another episode reoccurred. At this time I believe they are partially psychosomatic in nature. Nursing is instructed that they may treat these due to the unclear nature with the PRN lorazepam. -PRN loraz -Mag blood February 23, 2020 12:29 AM Shiv Brown APRN.EMMANUEL [facility] THERAPY NTon 02-23-2020 THERAPY NT HNO ID: [id number] Author: Mamie (Optometrist Owner) FELY Manzanares/ALESHIA Service: Speech/Swallow Author Type: Speech Language Pathologist Type: Therapy (PT/OT/Speech/Resp) Filed: 02/23/2020 9:49 AM Note Text: Speech Therapy Clinical Swallow Evaluation SERVICE DATE: 02/23/2020 SERVICE TIME: 899 to 928 ROOM: [place] [address] Nursing Recommendations: Reinforce use of swallowing strategies Diet Recommendations: Regular Consistency Thin Liquids IDDSI Level 0 Swallowing Precautions Recommendations: Alert (patient should be fully alert for P.O. intake) Sit upright 90 degrees for all PO Supervision/Assistance for meals Small Bite/Sip Recommended Consults: PT and OT Results and Recommendations Discussed With: Patient Recommended Discharge Disposition: Home IMPRESSION: Patient demonstrates oral dysphagia which is mildly impacting his/her ability to effectively maintain adequate nutrition and hydration and/or airway safety. Slow but effective chewing. No signs/symptoms of aspiration at bedside. Recommend continue regular textured foods and thin liquids. Rehabilitation Precautions: Aspiration Precautions Isolation Type: None ASSESSMENT: Patient is awake, alert and talkative Vocal quality is clear with no excess oral or pharyngeal secretions Good fit with full dentures Lingual and labial range of motion slow and with mildly decreased range of motion Requires mild assist with tray set up and feeding due to generalized weakness No signs/symptoms of aspiration with thin liquids from cup and straw No signs/symptoms of aspiration with puree Able to chew slowly but effectively; no signs/symptoms of aspiration Recommend continue regular diet and thin liquids Patient will benefit from Speech Therapy for further assessment of oral mobility and tolerance of current diet Tolerated Full Session Goals for Plan of Care: Swallow Goals: Patient will tolerate Regular Consistency diet consistency while utilizing compensatory/swallowing strategies given minimal cues in 90% of trials so that the patient will minimize the signs/symptoms of dysphagia. Patient will tolerate Thin Liquids IDDSI Level 0 consistency while utilizing compensatory/swallowing strategies given minimal cues in 90% of trials so that the patient will minimize the signs/symptoms of dysphagia. Patient will demonstrate adequate return of knowledge of all compensatory strategies/instruction to effectively assist the patient in immediate safety with oral intake and swallowing. - small bites/sips Therapeutic objectives: Oral pharyngeal strengthening Patient /Caregiver Goals: Eat/Drink Without Restrictions Speech Rehab Potential: Good PLAN: Treatment Frequency (times per week): 2 Current admission Treatment Interventions: Dysphagia Management Plan of Care Developed with: Patient TREATMENT INTERVENTIONS: Therapy Diagnosis: Dysphagia, oral phase Interventions Provided: Clinical Swallow Evaluation (42654) $ Clinical Swallow Evaluation (39956) Billed Units: 1 unit Total Treatment Time (minutes): 29 SUBJECTIVE: Current Hospital Course: Chart reviewed; This 74 year old male was admitted following a mechanical fall. Reason for Speech Therapy Consult: concern for aspiration; assess swallow Relevant Past Medical History: none available Patient Report: I can't hear or see - my hearing aides and glasses are at home. Home Environment Prior Functional Level: Within Functional Limits Assistance Available: PRN Prior Swallowing Function/Diet Textures: Regular Consistency;Thin Liquids IDDSI Level 0 Please see discipline specific clinical documentation flowsheet for complete details for this therapy evaluation/treatment. SIGNATURE: Mamie Manzanares CCC-FIREARMS EXPERT PATIENT NAME: Megan Gimenez DATE: February 23, 2020 TIME: 9:36 AM [facility] ALLIED HEALTHon 02-22-2020 ALLIED HEALTH HNO ID: [id number] Author: Chaplain Wyatt (Chaplain) Service: Spiritual Care Author Type: Pad Assembler Type: Allied Health Filed: 02/22/2020 1:21 AM Note Text: SPIRITUALCARE Spiritual Care Visit- Brief Note Name: Megan Gimenez Date: February 22, 2020 Notes: Trauma 2 fall Staff evaluating patient Follow up needed Pad Assembler Signature: Chaplain Edmundo To contact the Spiritual Care Department: Please call [phone] or Page the On-Call Pad Assembler at pager [phone] Thank you for the opportunity to be of service. This is an electronically created document. IF PRINTED, PLEASE DO NOT REMOVE FROM THE CHART OR MODIFY PRINTED COPY. [facility] Activated PTTon 02-22-2020 aPTT Coag (Bld) [Time] 28.7 s Normal 23.0-32.4 [facility] Comment on above: Result Comment: Unfr actionated Heparin Therapeutic Ranges: Standard Heparin Nomogram: 53 to 78 seconds (anti-Xa level of 0.3 to 0.7 U/mL) Low Dose/ACS Nomogram: 49 to 67 seconds (anti-Xa level of 0.2 to 0.5 U/mL) Stroke Treatment Nomogram: 49 to 67 seconds (anti-Xa level of 0.2 to 0.5 U/mL) Note: The APTT therapeutic range has been determined for the current lot of laboratory APTT reagent in use throughout the [facility]. Performed By: #### G LMET #### [address] [address] aPTT Coag (Bld) [Time] 29.1 s Normal 23.0-32.4 [facility] Comment on above: Result Comment: Unfr actionated Heparin Therapeutic Ranges: Standard Heparin Nomogram: 53 to 78 seconds (anti-Xa level of 0.3 to 0.7 U/mL) Low Dose/ACS Nomogram: 49 to 67 seconds (anti-Xa level of 0.2 to 0.5 U/mL) Stroke Treatment Nomogram: 49 to 67 seconds (anti-Xa level of 0.2 to 0.5 U/mL) Note: The APTT therapeutic range has been determined for the current lot of laboratory APTT reagent in use throughout the [facility]. 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 Last discharge within 30 days: No Advance Directive: Current Advance Directive: Health Care Power of Rn Medical Inpatient Services;Living Will In Chart: No Terminal Operator Attempted to Assist with AD Completion: No Health LiteracyHow often do you need to have someone help you when you read instructions, pamphlets, or other written material from your doctor or pharmacy? : 5 - Always How confident are you filling out medical forms by yourself?: 5 -Not at all If Patient scores > 3 on either question, the following interventions were put into place:: Patient did not score > 3 on either question. Baseline Mental Status Prior to this Illness what was the patient's Baseline Mental Status?: Unable to complete assessment Prior to this illness, has anyone described the patient having any of the following behaviors?: Unable to complete assessment Relationship of the informant to the patient:: Spouse Name of Informant: : Natasha Harmony [phone] Functional Status: Independent Does Patient Currently Receive Any Community Services or Home Care?: None Equipment Prior to Admission: Aerosols/Intermittent positive breathing/Respiratory Treatments;Walker;Glucomet er SOCIAL: Living Arrangements: Home Lives With: Spouse Financial Resources: RetiredPrimary Contact: Extended Emergency Contact Information Primary Emergency Contact: Natasha Gimenez Address[address] [address] [place], [place] [id number] [place] [address] Mobile Relation: Spouse Supportive Patient Contact:: Yes Contact Resources: Family Family Name/Phone: Social Needs Food insecurity Worry: Never true Inability: Never true Resources Needed: No Social Needs Financial resource strain: Not hard at all Social Needs Transportation needs Medical: No Non-medical: No Caregiver AssessmentCaregiver is ready, willing and able to meet the patient's needs as recommended by the inter-professional team:: Yes Does the patient have an acute stroke diagnosis, or has the patient had a stroke during this admission?: No Patient's transition needs and plan for meeting these needs: Home Vs HHC Patient's perception of need for this admission: Fall, Alt Mental Status Medication Adherance I am convinced of the importance of my prescription medication: 0 - Agree Completely I worry that my prescription medication will do more harm than good to me : 0 - Disagree Completely I feel financially burdened by my [id number] expenses for my prescription medication:: 0 - Disagree Completely Risk Score: 0 Patient is categorized as: Low risk < 2 Are you interested in bedside delivery of your medications? No Is Patient Psychosocially Complex?: No ASSESSMENT AND PLAN: Medical Needs: Medical Needs: Two or more chronic diseases Psychosocial Needs: Psychosocial Needs: None FREEDOM OF CHOICE EXPLAINED: [place] of Choice Given: Yes Level of Care Discussed: Home Care;Halfway Facility Financial Disclosure Provided: Yes Financial Disclosure Comments: Informed of [facility] connected facilities POTENTIAL TRANSITION PLANS Home Care;Halfway Facility/Intermediate Care Facility Information was obtained from patients . Patient lives at home with his , and ambulates independently. Patient reports that patient does have walkers at home but does not use it. Patient additionally has a glucometer, and CPAP at home. Patient has no other DME. Patient has Rx coverage, and has no other issues affording medications. Patient has no history of psychosocial issues. Patient reports patient ambulates at his baseline, but did report that he has Frequent falls. Plan for HHC Vs SNF when medically ready SW will continue to follow clinical course. SIGNATURE: CANDY Guzman PATIENT NAME: Megan Gimenez DATE: February 22, 2020 TIME: 12:31 PM PAGER/CONTACT #: [phone] [facility] CT BRAIN WO IVCONon 02-22-[address] BRAIN WO IVCON * * *Final Report* * * DATE OF EXAM: Feb 22 2020 1:29AM [facility] 0504 - CT BRAIN WO IVCON / PROCEDURE REASON: Head trauma, headache * * * * Physician Interpretation * * * * EXAMINATION: CT BRAIN WO IVCON CLINICAL HISTORY: Trauma, transferred TECHNIQUE: Serial axial images without IV contrast were obtained from the vertex to the foramen magnum. MQ: CTBWO_3 CT Dose-Length Product (DLP): 903 mGy*cm CT Dose Reduction Employed: Iterative recon COMPARISON: None. RESULT: Post-operative change: None. Acute change: No evidence of an acute infarct or other acute parenchymal process. Hemorrhage: No evidence of acute intracranial hemorrhage. Mass Lesion / Mass Effect: There is no evidence of an intracranial mass or extraaxial fluid collection. No significant mass effect. Chronic change: None apparent. Parenchyma: Age-related volume loss. Patchy hypodensity in the supratentorial white matter likely chronic small vessel ischemic change. Ventricles: The ventricles are within normal limits of size and configuration for age. Paranasal sinuses and skull base: Minimal maxillary opacification. The skull base and calvarium are normal. Left frontal soft tissue contusion. IMPRESSION: Left frontal soft tissue contusion. No acute intracranial abnormality. Ems Manager: PSCAdelaida Transcribe Date/Time: Feb 22 2020 1:53A Dictated by : ANA MARIA ISABEL MD This examination was interpreted and the report reviewed and electronically signed by: ANA MARIA ISABEL MD on Feb 22 2020 1:56AM EST Normal [facility] Comprehensive Metabolic Pane chanda 02-22-2020 Albumin [Mass/Vol] 3.5 g/dL Low 3.9-4.9 [facility] Comment on above: Performed By: #### G LMET #### [facility] [address] [place], [place] [address] ALP [Catalytic activity/Vol] 44 U/L Normal 38-113 [facility] Comment on above: Performed By: #### G LMET #### [facility] [address] [place], [place] [address] ALT [Catalytic activity/Vol] 35 U/L Normal 10-54 [facility] Comment on above: Performed By: #### G LMET #### [facility] [address] [place], [place] [address] Anion gap [Moles/Vol] 11 mmol/L Normal 9-18 [facility] Comment on above: Performed By: #### G LMET #### [facility] [address] [place], [place] [address] AST [Catalytic activity/Vol] 48 U/L High 14-40 [facility] Comment on above: Performed By: #### G LMET #### [facility] [address] [place], [place] [address] Bilirubin [Mass/Vol] 0.2 mg/dL Normal 0.2-1.3 [facility] Comment on above: Performed By: #### G LMET #### [facility] [address] [place] [address] Calcium [Mass/Vol] 8.2 mg/dL Low 8.5-10.2 [facility] Comment on above: Performed By: #### G LMET #### [facility] [address] [place], [place] [address] Chloride [Moles/Vol] 107 mmol/L High 97-105 [facility] Comment on above: Performed By: #### G LMET #### [facility] [address] [place], [place] [address] CO2 Blood 26 mmol/L Normal 22-30 [facility] Comment on above: Performed By: #### G LMET #### [facility] [address] [place], [place] [address] Creatinine [Mass/Vol] 1.42 mg/dL High 0.73-1.22 [facility] Comment on above: Performed By: #### G LMET #### [facility] [address] [place], [place] [address] Glucose [Mass/Vol] 87 mg/dL Normal 74-99 [facility] Comment on above: Result Comment: The [place] Diabetes Association (ADA) provides guidance for cutoff values for fasting glucose and random glucose. The ADA defines fasting as no caloric intake for at least 8 hours.Fasting plasma glucose results between 100 to 125 mg/dL indicate increased risk for diabetes (prediabetes). Fasting plasma glucose results greater than or equal to 126 mg/dL meet the criteria for diagnosis of diabetes. In the absence of unequivocal hyperglycemia, results should be confirmed by repeat testing. In a patient with classic symptoms of hyperglycemia or hyperglycemic crisis, random plasma glucose results greater than or equal to 200 mg/dL meet the criteria for diagnosis of diabetes. Reference: Standards of Medical Care in Diabetes 2016; [place] Diabetes Association. Diabetes Care. 2016;39(Suppl 1). Performed By: #### G LMET #### [facility] [address] [place], [place] [address] Potassium [Moles/Vol] 3.1 mmol/L Low 3.7-5.1 [facility] Comment on above: Performed By: #### G LMET #### [facility] [address] [place], [place] [address] Protein [Mass/Vol] 6.2 g/dL Low 6.3-8.0 [facility] Comment on above: Performed By: #### G LMET #### [facility] [address] [place], [place] [address] Sodium [Moles/Vol] 144 mmol/L Normal 136-144 [facility] Comment on above: Performed By: #### G LMET #### [facility] [address] [place], [place] [address] Urea nitrogen [Mass/Vol] 22 mg/dL Normal 9-24 [facility] Comment on above: Performed By: #### G LMET #### [facility] [address] [place], [place] [address] ED NOTEon 02-22-2020 ED NOTE HNO ID: [id number] Author: Tracie HolmanRn) KRZYSZTOF Steele Service: Emergency Medicine Author Type: Registered Nurse Type: ED Notes Filed: 02/22/2020 2:29 PM Note Text: Krzysztof Chaudhry awre of pts mental status changes and the Dr Linton is awre also pt given 20mg ivp hydralazine. Room is not clean yet [facility] ED NOTE HNO ID: [id number] Author: Tracie HolmanRn) KRZYSZTOF Steele Service: Emergency Medicine Author Type: Registered Nurse Type: ED Notes Filed: 02/22/2020 2:11 PM Note Text: Dr Linton aware of pts mentation. No new orders at this time. [facility] ED NOTE HNO ID: [id number] Author: Tracie HolmanRnBritt Steele RN Service: Emergency Medicine Author Type: Registered Nurse Type: ED Notes Filed: 02/22/2020 2:09 PM Note Text: Pt thinks it's 1970 and going to war. Pt states [facility]. [facility] ED NOTE HNO ID: [id number] Author: Tracie HolmanRn) KRZYSZTOF Steele Service: Emergency Medicine Author Type: Registered Nurse Type: ED Notes Filed: 02/22/2020 2:07 PM Note Text: Sound paged, pts mental status concerns [facility] ED NOTE HNO ID: [id number] Author: Tracie Steele RN Service: Emergency Medicine Author Type: Registered Nurse Type: ED Notes Filed: 02/22/2020 1:59 PM Note Text: Updated pts that he has a room assigned and gave room number and floor phone number [facility] ED NOTE HNO ID: [id number] Author: Tracie HolmanRnBritt Steele RN Service: Emergency Medicine Author Type: Registered Nurse Type: ED Notes Filed: 02/22/2020 1:45 PM Note Text: SPOKE TO DR LINTON ABOUT PTS BP, HE WILL REVIEW PTS CHART AND ENTER NEW ORDERS [facility] ED NOTE HNO ID: [id number] Author: Tracie HolmanRnBritt Steele RN Service: Emergency Medicine Author Type: Registered Nurse Type: ED Notes Filed: 02/22/2020 1:33 PM Note Text: MD PAGED FOR BP 202/87 [facility] ED NOTE HNO ID: [id number] Author: Tracie Steele RN Service: Emergency Medicine Author Type: Registered Nurse Type: ED Notes Filed: 02/22/2020 1:06 PM Note Text: RN UNAVAIL FOR REPORT [facility] ED NOTE HNO ID: [id number] Author: Vane Reeder RN Service: Emergency Medicine Author Type: Registered Nurse Type: ED Notes Filed: 02/22/2020 11:49 AM Note Text: Spoke with Sound in regards to BP. Will order IV PRN medication. [facility] ED NOTE HNO ID: [id number] Author: Vane HolmanRn) KRZYSZTOF Reeder Service: Emergency Medicine Author Type: Registered Nurse Type: ED Notes Filed: 02/22/2020 11:35 AM Note Text: FSBS 79 [facility] ED NOTE HNO ID: [id number] Author: Yaritza HolmanRn) KRZYSZTOF Chavez Service: Nursing Author Type: Registered Nurse Type: ED Notes Filed: 02/22/2020 6:33 AM Note Text: Nurse called MRI AND told that patient is a candidate for MRI, states that they are unsure of when they will send for patient. [facility] ED NOTE HNO ID: [id number] Author: Yaritza HolmanRn) KRZYSZTOF Chavez Service: Nursing Author Type: Registered Nurse Type: ED Notes Filed: 02/22/2020 5:58 AM Note Text: Natasha Gimenez called to obtain MRI screening form. Dr. Eagle giving pt's update over the phone at this time. MRI screening form faxed over. [facility] ED NOTE HNO ID: [id number] Author: Tawana HolmanRn) KRZYSZTOF Guzman Service: Emergency Medicine Author Type: Registered Nurse Type: ED Notes Filed: 02/22/2020 3:51 AM Note Text: Pt COVID-19 swab obtained from pt's R nare. Swab specimen labeled @ BS and sent to lab. [facility] ED NOTE HNO ID: [id number] Author: Tawana HolmanRn) KRZYSZTOF Guzman Service: Emergency Medicine Author Type: Registered Nurse Type: ED Notes Filed: 02/22/2020 3:03 AM Note Text: This RN to assume temporary care of pt @ this time to cover lunch of primary RN. Report received from KRZYSZTOF Vigil [facility] ED NOTE HNO ID: [id number] Author: Tawana HolmanRn) KRZYSZTOF Guzman Service: Emergency Medicine Author Type: Registered Nurse Type: ED Notes Filed: 02/22/2020 1:36 AM Note Text: Yellow trauma II sheet signed by this RN and Dr. Blas and placed in pt's chart [facility] ED NOTE HNO ID: [id number] Author: Tawana (Rn) KRZYSZTOF Guzman Service: Emergency Medicine Author Type: Registered Nurse Type: ED Notes Filed: 02/22/2020 1:35 AM Note Text: Pt moved to room 9 - Pt remains on cardiac/SpO2 monitoring. [facility] ED NOTE HNO ID: [id number] Author: Tawana (Rn) KRZYSZTOF Guzman Service: Emergency Medicine Author Type: Registered Nurse Type: ED Notes Filed: 02/22/2020 1:19 AM Note Text: Pt began answering question and responding verbally to Dr. Shaikh [facility] ED NOTE HNO ID: [id number] Author: Rajan Cruz Service: ? Author Type: ? Type: ED Notes Filed: 02/22/2020 1:07 AM Note Text: Bed: [address] [place] [address] Expected date: 02/22/20 Expected time: 1:00 AM Means of arrival: [facility] Comments: [place] trauma consult [facility] ED NOTE HNO ID: [id number] Author: Tawana (Rn) KRZYSZTOF Guzman Service: Emergency Medicine Author Type: Registered Nurse Type: ED Notes Filed: 02/22/2020 1:19 AM Note Text: Pt arrives tremoring and unresponsive, tremoring with his shoulders and arm while his tongue was sticking out [facility] ED PROV NOTEon 02-22-2020 ED PROV NOTE HNO ID: [id number] Author: Jacque Eagle MD Service: Emergency Medicine Author Type: Physician Type: ED Provider Notes Filed: 02/22/2020 4:50 AM Note Text: ED Provider Note Patient Name: Megan Gimenez SERVICE DATE: 02/22/20 History No chief complaint on file. Megan Gimenez is a 74 y/o male with known past medical history of mild dementia who is presenting as a transfer from [facility] where he initially presented after a fall with head injury. Per report patient tripped over his dog causing him to fall backwards hitting his head. Unclear loss of consciousness. During his stay [facility] he did receive a CT brain and cervical spine both which were unremarkable. He is currently on Eliquis however no bleeds were seen. His mental status does appear to be slightly depressed however he is having what appears to be focal seizures in his upper extremities. He was transferred to [facility] for a trauma consultation. In route to the hospital he was given 1.5 mg Versed for these upper extremity tonic-clonic activity which did seem to help only for a short period of time. Patient is alert but not answering questions. On his arrival he is alert and oriented times only self however he is able to state he has pain in the back of his head and neck. Was initially concern for nonreactive pupils however this does not appear to be the case currently. No scalp lacerations are seen at this time. He is otherwise not able to provide much further history about the mechanism of his fall or his current state of health. No history of seizures in the past. No past medical history on file. No past surgical history on file. No family history on file. Social History Tobacco Use - Smoking status: Not on file Substance and Sexual Activity - Alcohol use: Not on file - Drug use: Not on file - Sexual activity: Not on file ALLERGIES Allergies not on file Review of Systems Unable to perform ROS: Mental status change Musculoskeletal: Positive for neck pain. Neurological: Positive for seizures. Psychiatric/Behavioral: Positive for confusion. Physical Exam BP 151/99 Pulse 60 Temp (Src) 97.7 (Oral) Resp 20 Ht 6' 0 (1.83m) Wt 175 lb (79.4kg) SpO2 95% BMI 23.73 kg/(m2). O2 Therapy: Nasal Cannula, Liters: 2 Physical Exam Vitals signs and nursing note reviewed. Constitutional: General: He is not in acute distress. Appearance: Normal appearance. He is well-developed. He is not diaphoretic. Interventions: Cervical collar, nasal cannula and backboard in place. HENT: Head: Normocephalic and atraumatic. No raccoon eyes, Degroot's sign, abrasion, contusion or laceration. Jaw: No trismus. Right Ear: Tympanic membrane and external ear normal. No drainage. No mastoid tenderness. No hemotympanum. Left Ear: Tympanic membrane and external ear normal. No drainage. No mastoid tenderness. No hemotympanum. Nose: No nasal deformity. Mouth/Throat: Mouth: No lacerations. Eyes: General: Lids are normal. Conjunctiva/sclera: Conjunctivae normal. Pupils: Pupils are equal, round, and reactive to light. Neck: Musculoskeletal: No spinous process tenderness or muscular tenderness. Vascular: No JVD. Trachea: No tracheal tenderness. Cardiovascular: Rate and Rhythm: Normal rate and regular rhythm. Pulses: Carotid pulses are 2+ on the right side and 2+ on the left side. Radial pulses are 2+ on the right side and 2+ on the left side. Femoral pulses are 2+ on the right side and 2+ on the left side. Heart sounds: Normal heart sounds, S1 normal and S2 normal. Pulmonary: Effort: No respiratory distress. Breath sounds: No wheezing, rhonchi or rales. Chest: Chest wall: No tenderness or crepitus. Abdominal: General: There is no distension. Palpations: Abdomen is not rigid. Tenderness: There is no abdominal tenderness. There is no guarding or rebound. Skin: Findings: No abrasion. Neurological: Mental Status: He is alert and oriented to person, place, and time. GCS: GCS eye subscore is 3. GCS verbal subscore is 4. GCS motor subscore is 5. Cranial Nerves: Cranial nerves are intact. Sensory: Sensation is intact. No sensory deficit. Motor: Seizure activity (bilateral upper extremities) present. Comments: Patients mental status limits formal neuro exam. He is able to move all extremities though does not follow commands or hold arms or legs upright. No focality is noticed at this time however. Diagnostic Testing ED Labs Ordered and Reviewed LIPASE BLOOD (AK,AV,EU,FV,HL,JEANNETTE,MM,SP) PROTHROMBIN TIME / PT (AK,AV,EU,FV,HL,JEANNETTE,MM,SP) ACTIVATED PTT (AK,AV,EU,FV,HL,JEANNETTE,MM,SP) HIGH SENSITIVITY TROPONIN T (AK AV,EU,FV,HL,JEANNETTE,MM,SP) URINE DRUG SCREEN (AK,AV,EU,FV,HL,JEANNETTE,MM,SP) LACTIC ACID / LACTATE (AK,AV,EU,FV,HL,JEANNETTE,MM,SP) TYPE + SCREEN (AK,AV,EU,FV,HL,JEANNETTE,MM,SP) Procedures ED Course / Clinical Impression ED Course as of February 21 0406 Others' Documentation Mon February 22, 2020 0213 Attending Note I evaluated the patient and personally participated in the mahmood components. I agree with the resident's findings and plan as documented and have discussed the case and management of the patient's care with the resident.Patient altered, not following commands, jerking noted bilateral upper extremities. Pupils are equal bilaterally, reactive, left pupil is more sluggish than right. No respiratory distress, lungs are clear to auscultation. No obvious signs of trauma on extremities. This is a 74-year-old male patient transferred from [facility] after a fall. Patient reportedly tripped over her dog and fell backwards and hit his head. He is on Eliquis. Unknown if he lost consciousness. Patient had a thorough work-up there including labs, CT head and cervical spine, chest x-ray. Patient was noted to have altered mental status and seizure-like activity, so a CT angiogram of head and neck were obtained. There was no obvious head bleed or sign of stroke on any of the imaging. Given the new onset of seizure-like activity and altered mental status, it felt patient needed further evaluation treatment. Original plan was to have patient seen here as a trauma consult, however ambulance report indicated that patient's mental status had worsened, so he was upgraded to a trauma 2. Patient was seen immediately upon arrival by myself, the resident, and the trauma team. Upon arrival, patient appeared to be having seizure-like activity with his upper extremities. Originally, he was not responsive verbally, however within a couple minutes he was able to answer some questions appropriately and follow commands. Due to the change in mental status, repeat head CT will be obtained. We will repeat some labs. Disposition will be pending trauma, but anticipate patient will be admitted. Signature: Jacque Eagle MD Date: 02/22/2020 Time: 2:14 AM I was present for the mahmood portions of the procedure. Jacque Eagle MD [AR] ED Course User Index [AR] Jacque Eagle MD MDM / Disposition / Plan Megan Gimenez is a 74 y/o male who presented to the emergency department as a trauma transfer from [facility] where he initially presented after a fall at home. On his arrival the patient was alert and oriented x1. A trauma level 2 was activated after EMS reported worsening mental status and some focal seizures in his upper extremities. On his arrival to the emergency department his vital signs were stable and within normal limits. He does exhibit some bilateral upper extremity clonic activity however the patient does seem to be able to follow commands during this. However due to concerns for focal seizure he was given 2 mg of Ativan upon his arrival which did help. Patient is alert oriented x1 however he is able to remember how and why he fell. Due to these reported changes a repeat CT brain was obtained which again shows no evidence of intracranial hemorrhage. CTA at outside facility showed no large vessel occlusions or ischemic changes. CT neck again obtained at outside facility was negative for cervical spine fractures or dislocations. He has no other apparent injuries. Basic labs were obtained which did show a slightly elevated troponin however this appears to be downtrending. EKG showed no ischemic changes. He was observed in the emergency department for approximately 2 hours and he does occasionally have some mild upper extremity clonic jerks however the patient remains alert and oriented x2. Patient does have a history of dementia it is unclear exactly what his baseline is however these changes in mental status were reported as a worse than baseline. He remains able to answer questions and is protecting his airway. He will be admitted to the regular nursing floor for EEG and neuro consultation. I did speak with Dr. Loredo, neuro it systems analyst, who feels that this is appropriate. Patient was in stable condition upon his admission. The patient was ADMITTED TO: Regular nursing floor. Condition at time of disposition: stable SIGNATURE: DO Suzie Varner (Res) DO Ethan Lutz 02/22/20 0406 Critical Care I spent a total of 40 minutes of critical care time in the evaluation and management of this patient. This was necessary to treat or prevent deterioration of the following condition(s): TRUST MANAGER impairment, which the patient had and/or has a high probability of suddenly developing. The patient received ativan, imaging, IV Fluids and Consultation by trauma during the time that critical care was provided.I discussed the plan of care with the Resident and agree with the findings documented. Critical care time excludes separately billed procedures. MD Jacque Quiñonez MD 02/22/20 1746 Normal [facility] HISTORY PHYSICALon 0 HISTORY PHYSICAL HNO ID: [id number] Author: Melina Hallman Service: Hospital Medicine Author Type: Nurse Practitioner Type: HANDP Filed: 02/22/2020 8:48 AM Note Text: -- Attestation signed by Laureano Linton at 02/22/2020 10:41 AM Attending Note I have personally performed a face to face assessment of the patient and have reviewed the PA/ASSOCIATE FINANCIAL ANALYST note. My mahmood findings include: History is as noted on nurse practitioner history. Patient had been doing well until yesterday when he tripped over his dog and hit his head. He said generalized tremors affecting his upper body primarily his upper extremities. He was sent to [place] as a trauma and a CT of the brain and cervical spine showed a small left frontal contusion. X-rays of the pelvis were negative. He was transferred to [facility] for more comprehensive evaluation. Exam is BP 186/89 Pulse 63 Temp 36.5 ?C (97.7 ?F) (Oral) Resp 17 Ht 182.9 cm (6') Wt 79.4 kg (175 lb) SpO2 97% BMI 23.73 kg/m? Neck supple without JVD. Lungs clear without wheezes, rales, rhonchi or retraction. Speaks in full sentences. Heart RRR, normal S1S2, no murmurs, clicks, rubs, gallops. Abdomen soft, non-tender, non-distended, no masses or hepatosplenomegaly. Extremities without cyanosis, clubbing or edema. Neurologic shows patient to be awake but disoriented. He cannot follow simple commands. His upper extremities intermittently shake. His lower extremities do not shake. He is able to move them but not on command. He has no facial droop. His eyes are with equal pupils. Assessment/Plan are as noted in the nurse practitioner HANDP. Check MRI to make sure he did not have a stroke or a more serious traumatic brain injury. EEG was done and result is pending. Neurology consultation is pending as well. We will replace potassium. Since there is no bleeding on the okay to resume on apixaban. Other additions or changes: None Signature: Laureano Linton MD Date: 02/22/2020 Time: 10:35 AM -- [facility]MENT [facility] MEDICINE HISTORY AND PHYSICAL EXAM SERVICE DATE: 02/22/2020 SERVICE TIME: 8:32 AM Primary Care Physician: Jayme Yang MD NIGHT AND WEEKEND COVERAGE: After 7pm call #[phone] Chief complaint: tremor HPI: This is a 74 y/o male with prior history of atrial fibrillation on eliquis, HTN, diabetes, HLD, rheumatoid arthritis and colitis. Patient lives at home with and is AANDOX3 and independent at baseline. He initially presented to [facility] after tripping on his dog and hitting his head. After his fall he started to exhibit generalized tremors in both upper extremities. He was also minimally responsive and only able to give his name. Presented as trauma but CT brain, C-spine showed small left frontal contusion and x-ray pelvis negative. Patient seems more alert now. He is slow to respond but AANDOX3 and following commands. Was in typical state of health before fall. He complains of headache, blurry vision, generalized weakness and dizziness. No chest pain, palpitations or dyspnea. No nausea or vomiting. Denies fever, chills or cough. Creatinine 1.87, potassium 3.1, magnesium 1.7. Initial lactic acid 2.3, repeat 1.1. Hemoglobin 10.6, WBC 6. EKG showed NSR. Troponin did not spike. COVID negative. UA and toxicology negative. He's afebrile. O2 93%. Patient and deny history of CKD but states they're told he's always dehydrated. PAST MEDICAL HISTORY Diagnosis Date - Atrial fibrillation (HCC) - Colitis - Dementia (HCC) - Diabetes (HCC) - HLD (hyperlipidemia) - HTN (hypertension) - Rheumatoid arthritis (HCC) Surgical: B/L knee replacement, spinal fusion, partial colon resection FAMILY HISTORY Problem Relation Age of Onset - Heart disease Mother - Diabetes Mother - Diabetes Sister - Heart disease Brother Social History Tobacco Use - Smoking status: Not on file Substance Use Topics - Alcohol use: Not on file - Drug use: Not on file HOME MEDICATIONS: Prior to Admission Medications Prescriptions Last Dose Informant Patient Reported? Taking? DULoxetine (CYMBALTA) 60 mg capsule Yes Yes Sig: Take 60 mg by mouth once daily. ISOSORBIDE ORAL Yes Yes Sig: Take 30 mg by mouth once daily. LISINOPRIL ORAL Yes Yes Sig: Take 40 mg by mouth once daily. amiodarone (PACERONE) 100 mg tablet Yes Yes Sig: Take 200 mg by mouth once daily. apixaban (ELIQUIS) 5 mg (74 tabs) Yes Yes Sig: Take 5 mg by mouth twice daily. Take 2 tablets (10 mg) by mouth twice daily for 7 days. Then take 1 tablet (5 mg) by mouth twice daily for 23 days balsalazide disodium (BALSALAZIDE ORAL) Yes Yes Sig: Take 750 mg by mouth three times daily. cloNIDine HCl (CATAPRES) 0.3 mg tablet Yes Yes Sig: Take 0.3 mg by mouth three times daily. diltiazem CR (TIAZAC, TAZTIA XT) 360 mg 24 hr capsule Yes Yes Sig: Take 360 mg by mouth once daily. esomeprazole (NEXIUM) 20 mg capsule Yes Yes Sig: Take 20 mg by mouth DAILY (6 AM). gabapentin (NEURONTIN) 600 mg tablet Yes Yes Sig: Take 600 mg by mouth twice daily. hydrALAZINE (APRESOLINE) 100 mg tablet Yes Yes Sig: Take 100 mg by mouth three times daily. hydroCHLOROthiazide (HYDRODIURIL, ESIDRIX) 25 mg tablet Yes Yes Sig: Take 25 mg by mouth once daily. metFORMIN (GLUCOPHAGE) 1,000 mg tablet Yes Yes Sig: Take 1,000 mg by mouth twice daily with meals. rosuvastatin (CRESTOR) 20 mg tablet Yes Yes Sig: Take 20 mg by mouth once daily. Facility-Administered Medications: None ALLERGIES No Known Allergies REVIEW OF SYSTEM: All systems reviewed and negative except as stated in HPI PHYSICAL EXAM: BP 182/85 Pulse 61 Temp (Src) 97.7 (Oral) Resp 12 Ht 6' 0 (1.83m) Wt 175 lb (79.4kg) SpO2 97% BMI 23.73 kg/(m2). O2 Therapy: Nasal Cannula, Liters: 3 GENERAL: drowsy, occasional muscle jerking to BUEs SKIN: No rash HEAD/SINUSES: No significant findings, no lacerations NECK: No jugulovenous distention, No carotid bruits LUNGS: Lungs clear to auscultation, Unlabored CARDIAC: Normal S1 and S2; mild bradycardia ABDOMEN: Abdomen soft, non-tender, BS normal EXTREMITIES: Extremities normal. no deformities, edema, or clubbing NEURO: AANDOX3 but slow to respond. Strength 1/5 X all 4 extremities. Face symmetrical DATA: Diagnostic tests reviewed for today's visit: WBC (thou/cmm) Date Value 02/22/2020 6.54 RBC (mil/cmm) Date Value 02/22/2020 3.69 (L) HGB (g/dL) Date Value 02/22/2020 10.6 (L) Hematocrit (%) Date Value 02/22/2020 33.0 (L) MCV (fl) Date Value 02/22/2020 89.4 MCH (pg) Date Value 02/22/2020 28.7 MCHC (%) Date Value 02/22/2020 32.1 (L) Platelet Count (thou/cmm) Date Value 02/22/2020 212 MPV (fl) Date Value 02/22/2020 10.8 Glucose (mg/dL) Date Value 02/22/2020 87 BUN (mg/dL) Date Value 02/22/2020 22 Creatinine (mg/dL) Date Value 02/22/2020 1.42 (H) Sodium (mmol/L) Date Value 02/22/2020 144 Potassium (mmol/L) Date Value 02/22/2020 3.1 (L) Chloride (mmol/L) Date Value 02/22/2020 107 (H) CO2 (mmol/L) Date Value 02/22/2020 26 Protein, Total (g/dL) Date Value 02/22/2020 6.2 (L) Albumin (g/dL) Date Value 02/22/2020 3.5 (L) Calcium (mg/dL) Date Value 02/22/2020 8.2 (L) Alkaline Phosphatase (U/L) Date Value 02/22/2020 44 Bilirubin, Total (mg/dL) Date Value 02/22/2020 0.2 AST (U/L) Date Value 02/22/2020 48 (H) ALT (U/L) Date Value 02/22/2020 35 URINLAYSIS No results found for: PH, SPGR, UGLUC, UBILI, UKET, UHB, UPROT, UROBIL, UWBC, SSA Most recent labs and imaging results. Assessment/Plan #new onset tremor, concern for seizure -CT of head negative, MRI will be obtained -check EEG -seizure precautions -neuro checks -consult to neurology -PRN ativan #mechanical fall -trauma work up negative #hypokalemia -replace #DAY v CKD -hold CED and HCTZ -trend while inpatient #NIDDM -hold metformin and give SSI #hx atrial fibrillation -EKG showed NSR -continue apixaban, amiodarone -diltiazem with hold parameters -monitor on telemetry #HTN -will continue clonidine, diltiazem and hydralazine -hold lisinopril and HCTZ #HLD -statin Will need PT/OT eval prior to discharge DNR-CCA VTE Prophylaxis: Patient is already anti-coagulated. 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 Reportedly after this fall the patient started exhibiting generalized tremors in both extremities and he was taken to the emergency department in [place]. There is concern that he was having a seizure and he was given a milligram of Ativan at [facility] ED. He continued to exhibit this tremulous activity in bilateral upper extremities and altered mental status so he was given additional Versed in route to our facility here at [facility]. On arrival he was exhibiting these tremors in bilateral upper extremities and minimally responsive with 1-2 word sentences. On arrival at our hospital, He could say his name. Was not moving bilateral lower extremities on exam. He was given 2 mg of Ativan and stated he had pain so was given 50 of fentanyl. Prior to admission labs: INR 1.2 PTT 39.7 platelets 243 and a lactic acidosis 2.3. He has a past medical history significant for A. fib for which he takes Eliquis, dementia, hypertension, diabetes, rheumatoid arthritis colitis, hyperlipidemia , per [facility] medical records. GCS on arrival 13. HPI/CHIEF COMPLAINT: Ground-level fall, mechanical, on Eliquis for history of a-Fib, unknown loss of consciousness and exhibiting tremor-like activity in bilateral upper extremities. BRIEF DESCRIPTION OF INJURIES: Exhibiting seizure-like activity vs bilateral tremors LAST FLUIDS/MEAL: Unknown CODE STATUS: Not discussed ALLERGIES Allergies not on file (Not in a hospital admission) DATE OF LAST TETANUS: Unknown There is no immunization history on file for this patient. No past medical history on file. No past surgical history on file. Social History Tobacco Use - Smoking status: Not on file Substance Use Topics - Alcohol use: Not on file - Drug use: Not on file ROS: Is the patient having any pain? Yes LOCATION: back Constitutional: Unable to assess secondary to communication or language barrier. Eye/Ear/Nose: Unable to assess secondary to communication or language barrier. Respiratory: Unable to assess secondary to communication or language barrier. Cardiovascular: Unable to assess secondary to communication or language barrier. GI/Liver/Biliary: Unable to assess secondary to communication or language barrier. Genitourinary: Unable to assess secondary to communication or language barrier. Psychiatric: Unable to assess secondary to communication or language barrier. Neurologic: Exhibiting seizure-like activity bilateral upper extremities, not moving lower extremities Musculoskeletal: Unable to assess secondary to communication or language barrier. Integument: Well-healed surgical scars Endocrine: Unable to assess secondary to communication or language barrier. Heme/Lymph: Unable to assess secondary to communication or language barrier. Objective PRIMARY SURVEY AIRWAY: Patent BREATHING: Breath sounds equal CIRCULATION: DP +, Radials +, Femoral + DISABILITY: Eye: 3=To Verbal Command Verbal: 4=Disoriented and Converses Motor: 6=Obeys Commands Total GCS: 13=4 Resp Rate: 10 to 29=4 Syst BP: > than 89=4 REVISED TRAUMA SCORE: 12 EXPOSE / ENVIRONMENT: Warm Blankets PROCEDURES: None SECONDARY SURVEY VITALS: 02/22/20 0119 02/22/20 0128 02/22/20 0129 02/22/20 0134 BP: Pulse: 57 (!) 54 58 Resp: 20 15 16 Temp: TempSrc: SpO2: (!) 93% Weight: Height: NEURO: Intermittently following commands not moving lower extremities to pain, fluctuating neuro exam, unable to assess sensory and 2 motor deficits at this time. HEENT: Head: No lacerations or abrasions, no bony step offs, midface stable to palpation, Eyes: 3 cm and reactive bilaterally, conjunctiva/corneas without lesions, EOM intact, Ears: Canals without blood or CSF drainage, TMs clear, external ears without lacerations, Nose: Septum midline, no crepitus with motion, Throat: Oral mucosa without lacerations, teeth in place, tongue without lacerations NECK: No midline pain with palpation, No pain with active ROM, No lacerations/wounds, No JVD, Trachea midline RESPIRATORY: No abrasions or contusions, No crepitus, No TTP, Equal Excursion CARDIOVASCULAR: Heart rate regular, S1S2 with no R/M/G ABDOMEN: Left lower quadrant tenderness endorse by palpation, soft, no rebound or guarding PELVIC/PERINEAL: Pelvis stable to palpation, No blood noted at urethra meatus, rectal exam with no gross blood and good sphincter tone. BACK/SPINE: Tender to palpation of the rectal lumbar spine. Well-healed surgical incisions in his upper C and T spine as well as lower T and L-spine. No step off or deformity noted, No external injury noted EXTREMITIES: Intermittently appears to follow commands, not able to describe any sensory deficits at this time secondary to mental status, not withdrawing from pain in the lower extremities. All all joints grossly normal. RADIOLOGICAL/OTHER TEST DATA: - See below PRIOR TO ARRIVAL: Loss of Consciousness Unknown Oxygen IMAGES XR PELVIS 1V AP Final Result IMPRESSION: No acute fracture or dislocation. Ems Manager: PSCB Transcribe Date/Time: Feb 22 2020 1:43A Dictated by : SUZIE MARTINEZ MD This examination was interpreted and the report reviewed and electronically signed by: SUZIE MARTINEZ MD on Feb 22 2020 1:51AM EST CT BRAIN WO IVCON (Results Pending) LABS: CBC, Coags, BMP, Mg, Phos CSF AND Dilantin Liver Function, Amylase, AND Lipase Recent Labs 02/22/20 0125 LACT 1.1 Cardiac Enzymes ABGs Assessment/Plan DIAGNOSES: There is no problem list on file for this patient. 74 year old male s/p ground-level fall at home, mechanical, on Eliquis for history of A. Fib, unknown if loss of consciousness occurred. ?On arrival patient exhibiting tremor activity in bilateral upper extremities intermittently alert Imaging performed: 1. CT H and XR P at [facility] (02/21) 2. CT H/N, CXR and CTA head neck at [place] 1. CT cervical spine with no evidence of acute fracture or subluxation 2. Chronic involutional changes of the brain, right sinusitis and mucoid retention cyst 3. CXR mild cardiomegaly 4. 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 Left frontal soft tissue contusion Operations: 1. None presently. Care Plan: 2. Trauma work negative for intracranial pathology, small left frontal tissue contusion. 1. Recommend conservative treatment 3. Would recommend medical evaluation for comorbidities and possible seizure like activity. 1. Patient was given 2 mg of Ativan in the emergency department which did seem to help with his tremors. Consulted Services and recs: 1. Recommending medical evaluation, possible neuro evaluation Dispo [place]. Per ED Prophylaxis and Protocols: 1. BMI > 40?: No. 2. Appropriate DVT PPx: to be assessed by primary team. 3. Ulcer PPx indicated: No. 4. Vit D level monitoring if > 65 yo: Yes. 5. ARC monitoring indicated? No. 1. Follow Up Needs: 1. TBD Plan of care discussed with Staff Trauma Surgeon: Dr. Lima SIGNATURE: Ryan Gill DO PATIENT NAME: Megan Gimenez DATE: February 22, 2020 TIME: 1:37 AM PAGER/CONTACT #: Trauma Service Pager: For questions or concerns Mon-Fri 6a-5p please page [phone]. After 5pm and on Weekends and Holidays, please page [phone] if in ICU or [phone] if on RNF. Attending Note I personally saw and examined the patient. I reviewed the resident's note. I agree with the resident's assessment and plan unless otherwise noted. As above Possible seizures No traumatic injuries OK to admit to medicine Signature: Raphael Lima MD Date: 02/22/2020 Time: 10:11 AM Normal [facility] Hemogram/Diffon 02-22-2020 Abs Immature Grans 0.03 thou/cmm Normal 0.00-0.05 [facility] Comment on above: Performed By: #### G LMET #### [facility] [address] [place] [address] Abs Neut (ANC) 4.09 thou/cmm Normal 1.78-5.38 [facility] Comment on above: Performed By: #### G LMET #### [facility] [address] [place] [address] Abs. Baso 0.02 thou/cmm Normal 0.01-0.08 [facility] Comment on above: Performed By: #### G LMET #### [place] [address] Abs. [place] 0.66 thou/cmm Normal 0.30-0.82 [facility] Comment on above: Performed By: #### G LMET #### [place] [address] Basophils/100 WBC (Bld) 0.3 % Normal [facility] Comment on above: Performed By: #### G LMET #### [place] [address] Eosinophils (Bld) [#/Vol] 0.20 thou/cmm Normal 0.04-0.54 [facility] Comment on above: Performed By: #### G LMET #### [place] [address] Eosinophils/100 WBC (Bld) 3.1 % Normal [facility] Comment on above: Performed By: #### G LMET #### [place] [address] Erythrocyte distribution width (RBC) [Ratio] 16.5 % High 11.6-14.4 [facility] Comment on above: Performed By: #### G LMET #### [place] [address] Hematocrit (Bld) [Volume fraction] 33.0 % Low 40.1-51.0 [facility] Comment on above: Performed By: #### G LMET #### [facility] [address] [place], [place] [address] Hemoglobin (Bld) [Mass/Vol] 10.6 g/dL Low 13.7-17.5 [facility] Comment on above: Performed By: #### G LMET #### [facility] [address] [place] [address] Immature Grans 0.50 % Normal [facility] Comment on above: Performed By: #### G LMET #### [facility] [address] [place] [address] Lymphocytes (Bld) [#/Vol] 1.53 thou/cmm Normal 0.84-2.85 [facility] Comment on above: Performed By: #### G LMET #### [place] [address] Lymphocytes/100 WBC (Bld) 23.4 % Normal [facility] Comment on above: Performed By: #### G LMET #### [facility] [address] [place] [address] MCH (RBC) [Entitic mass] 28.7 pg Normal 25.7-32.2 [facility] Comment on above: Performed By: #### G LMET #### [place] [address] MCHC (RBC) [Mass/Vol] 32.1 % Low 32.3-36.5 [facility] Comment on above: Performed By: #### G LMET #### [facility] [address] [place] [address] MCV (RBC) [Entitic vol] 89.4 fL Normal 83.2-95.6 [facility] Comment on above: Performed By: #### G LMET #### [place] [address] Monocytes/100 WBC (Bld) 10.1 % Normal [facility] Comment on above: Performed By: #### G LMET #### [facility] [address] [place], [place] [address] Platelet mean volume (Bld) [Entitic vol] 10.8 fL Normal 8.7-12.0 [facility] Comment on above: Performed By: #### G LMET #### [facility] [address] [place], [place] [address] Platelets (Bld) [#/Vol] 212 thou/cmm Normal 141-365 [facility] Comment on above: Performed By: #### G LMET #### [facility] [address] [place] [address] RBC (Bld) [#/Vol] 3.69 mil/cmm Low 4.63-6.08 [facility] Comment on above: Performed By: #### G LMET #### [facility] [address] [place] [address] RDW SD 54.3 fl High 36.1-45.8 [facility] Comment on above: Performed By: #### G LMET #### [facility] [address] [place] [address] Seg Neutrophil 62.6 % Normal [facility] Comment on above: Performed By: #### G LMET #### [facility] [address] [place] [address] WBC (Bld) [#/Vol] 6.54 thou/cmm Normal 4.23-9.07 [facility] Comment on above: Performed By: #### G LMET #### [facility] [address] [place] [address] Hgb A1con 02-22-2020 HbA1c (Bld) [Mass fraction] 128 mg/dL Normal [facility] Comment on above: Performed By: #### H A1C ####[facility] [place] [address] HbA1c (Bld) [Mass fraction] 6.1 % High 4.0-5.6 [facility] Comment on above: Result Comment: Amer [place] Diabetes Association guidelines indicate that the patients with HgA1c in the range 5.7 ? 6.4% are at increased risk for development of diabetes, and intervention by lifestyle modification may be beneficial. HgA1c greater or equal to 6.5% is considered diagnostic of diabetes. Performed By: #### H A1C ####[facility] [place], [place] [address] Lactic Acidon 02-22-2020 Lactate [Moles/Vol] 1.1 mmol/L Normal 0.5-2.2 [facility] Comment on above: Performed By: #### E DLAG #### [facility] [address] [place] [id number] Lipase Bloodon 02-22-2020 Lipase Blood 22 U/L Normal 16-61 [facility] Comment on above: Performed By: #### L IP #### [facility] [address] [place] [address] MRI BRAIN WO IVCONon 020 MRI BRAIN WO IVCON * * *Final Report* * * DATE OF EXAM: Feb 22 2020 3:13PM [facility] 0294 - MRI BRAIN WO IVCON / PROCEDURE REASON: Seizure, new, nontraumatic, >40 yrs * * * * Physician Interpretation * * * * EXAMINATION: MRI BRAIN WO IVCON CLINICAL HISTORY: Trauma, anticoagulated TECHNIQUE: Routine noncontrast MRI protocol including diffusion images. MQ: [id number] COMPARISON: 02/22/[address] CTA head and neck 02/21/2020 from outside center RESULT: Acute Change: There is no evidence of restricted diffusion to suggest an acute infarct. Hemorrhage: No evidence of prior parenchymal hemorrhage on the gradient echo images. Mass Lesion/ Mass Effect: No evidence of an intracranial mass or extra-axial fluid collection. No significant mass effect. Chronic Change: Minimal deep white matter changes left centrum semiovale and left cerebral peduncle. Parenchyma: No significant volume loss for age. Ventricles: Normal caliber and morphology. Skull Base: Hypothalamic and pituitary region are grossly normal. Craniocervical junction is normal. No significant marrow replacement process. Vasculature: Major intracranial arterial structures, and dural venous sinuses show typical flow void, suggesting patency by spin echo criteria. Other: Moderate degree of chronic right-sided sphenoid sinusitis. Chronic mucosal changes posterior left maxillary sinus. No fluid levels are seen. Temporal and mastoid bones are clear.. Orbits: Nonspecific increased distention of the left optic nerve sheath complex. Otherwise, no intraconal or extraconal mass. IMPRESSION: 1. No acute intracranial abnormality 2.Minimal deep white matter changes left centrum semiovale and left cerebral peduncle. 3.Moderate degree of chronic right-sided sphenoid sinusitis. 4.Nonspecific increased distention of the left optic nerve sheath complex with increase perioptic fluid. Otherwise, no intraconal or extraconal mass. Correlate with clinical symptoms Ems Manager: HARDIK Transcribe Date/Time: Feb 22 2020 3:41P Dictated by : FELICITAS MAY MD This examination was interpreted and the report reviewed and electronically signed by: FELICITAS MAY MD on Feb 22 2020 3:58PM EST Normal [facility] Magnesium Bloodon 02-22-2020 Magnesium [Mass/Vol] 1.7 mg/dL Normal 1.7-2.3 [facility] Comment on above: Performed By: #### G LMET #### [place] [address] NURSING PROGon 02-22-2020 NURSING PROG HNO ID: [id number] Author: Avani (Rn) KRZYSZTOF Xie Service: ? Author Type: Registered Nurse Type: Nursing Progress Note Filed: 02/22/2020 5:10 PM Note Text: Nursing Progress Note Vital Internet Database Specialist Assessment Note Patient Name: Megan Gimenez Patient Location: [place] [address] [address]* Patient Vitals for the past 4 hrs: BP Temp Temp src Pulse Resp SpO2 Height Weight 02/22/20 1649 194/85 ? ? 84 ? ? 182.9 cm (6' 0.01) 86.4 kg (190 lb 7.6 oz) 02/22/20 1543 192/71 ? ? 86 ? 02/22/20 1536 (!) 214/100 36.7 ?C (98.1 ?F) Oral 102 20 99 % ? ? 02/22/20 1430 193/84 ? ? 79 15 97 % ? ? 02/22/20 1426 200/77 ? ? 81 20 98 % ? ? 02/22/20 1422 195/85 ? ? 76 15 97 % ? ? 02/22/20 1420 (!) 203/89 ? ? 76 16 97 % ? ? 02/22/20 1415 (!) 207/95 ? ? 74 13 96 % ? ? 02/22/20 1400 (!) 209/100 ? ? 81 17 (!) 94 % ? ? 02/22/20 1340 ? ? ? 78 17 95 % ? ? 02/22/20 1330 (!) 202/87 ? ? 72 15 ? ? ? 02/22/20 1318 176/82 ? 02/22/20 1315 198/86 ? ? 71 (!) 30 ? ? ? Status Change Related to: Cardiac;Neuro Issues (See Nursing Clinical Assessment For Details) The Following People Were Notified: Attending Physician Caregiver/Provider: Dr. 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 Corrected isosorbide below to Imdur mono 60mg ? Corrected Eliquis to BID instead of tapered introductory dosing MORENA SZYMANSKI, PHARMACIST February 23, 2020 4:51 PM ---- MEDICATION HISTORY Patient Name:Minerva Gimenez : 1945 Source of history:Patient: Reliability of source: Appears reliable, but confused, able to identify his medications and pharmacy: Medication name and Pharmacy records: [facility] [phone] (primary) Medication Nonadherence Identified: No barriers noted The above information represents the best possible medication history: Yes Rrged-gr-Rixeltndt Medication List Adjustments: Medication Regimen Changes: ISOSORBIDE ORAL Take 60 mg by mouth once daily. Pt. states dose has increased. Last RX on 02/11/20 is 60 mg daily. Medications Added: Ipratropium [place] (ATROVENT) 0.03 % nasal spray Use 1 [place] in the nose as directed. Pt. states he uses PRN and RX was filled on 11/09/19. Further Clarification Required: apixaban (ELIQUIS) 5 mg (74 tabs) Take 5 mg by mouth twice daily. Take 2 tablets (10 mg) by mouth twice daily for 7 days. Then take 1 tablet (5 mg) by mouth twice daily for 23 days Pt. states he takes med BID balsalazide (COLAZAL) 750 mg capsule Take 750 mg by mouth three times daily. RX (on 12/29/19 for 540 capsules) indicates pt. is to take 3 capsules BID. Pt. is not sure how much he takes. 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 Yes balsalazide (COLAZAL) 750 mg capsule Take 750 mg by mouth three times daily. Yes cloNIDine HCl (CATAPRES) 0.3 mg tablet Take 0.3 mg by mouth three times daily. Yes diltiazem CR (TIAZAC, TAZTIA XT) 360 mg 24 hr capsule Take 360 mg by mouth once daily. Yes gabapentin (NEURONTIN) 600 mg tablet Take 600 mg by mouth twice daily. Yes amiodarone (PACERONE) 100 mg tablet Take 200 mg by mouth once daily. Yes apixaban (ELIQUIS) 5 mg (74 tabs) Take 5 mg by mouth twice daily. Yes lisinopril (ZESTRIL, PRINIVIL) 40 mg tablet Take 40 mg by mouth once daily. Yes hydrALAZINE (APRESOLINE) 100 mg tablet Take 100 mg by mouth three times daily. Yes hydroCHLOROthiazide (HYDRODIURIL, ESIDRIX) 25 mg tablet Take 25 mg by mouth once daily. Yes metFORMIN (GLUCOPHAGE) 1,000 mg tablet Take 1,000 mg by mouth twice daily with meals. Yes rosuvastatin (CRESTOR) 20 mg tablet Take 20 mg by mouth once daily. Yes DULoxetine (CYMBALTA) 60 mg capsule Take 60 mg by mouth once daily. Yes esomeprazole (NEXIUM) 20 mg capsule Take 20 mg by mouth DAILY (6 AM). Yes Ipratropium [place] (ATROVENT) 0.03 % nasal spray Use 1 [place] in the nose as directed. Yes glimepiride (AMARYL) 2 mg tablet Take 2 mg by mouth once daily. Yes Sam Rankin (Material Stress Tester) pager [phone] phone [phone] February 22, 2020 10:01 AM [facility] PROGRESSon 02-22-2020 PROGRESS HNO ID: [id number] Author: Avani (Rn) KRZYSZTOF Xie Service: ? 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 Linton [facility] PROGRESS HNO ID: [id number] Author: Avani (Rn) KRZYSZTOF Xie Service: ? Author Type: Registered Nurse Type: Progress Notes Filed: 02/22/2020 6:14 PM Note Text: 1547: ok to d/c gabapentin at this time per dr linton on floor, Dr. Linton notified of pts blood pressure ok to monitor for now 1644: confirmed admission assment with natasha 1814: notified Dr. Linton of aspirin allergy, ok to still give UC meds [facility] Protimeon 02-22-2020 INR Coag (PPP) [Relative time] 0.99 {INR} Normal 0.90-1.30 [facility] Comment on above: Result Comment: Marly min K Antagonist (VKA) Therapeutic Range: INR 2 to 3 (Target INR of 2.5) Note: For patients treated with VKA drugs, such as warfarin, the [place] [employer] 2012 Guideline recommends a therapeutic INR range of 2 to 3 (target INR of 2.5). This recommendation includes high-risk patients with antiphospholipid syndrome with previous arterial or venous thromboembolism, current-generation mechanical or bioprosthetic aortic heart valve replacement. Note: Patients with mechanical aortic valve replacement and additional risk factors for thromboembolic events (atrial fibrillation, previous thromboembolism, LV dysfunction, hypercoagulable conditions) or an older generation mechanical AVR (i.e., ball in-Cage) or any mechanical MVR should have a INR therapeutic range of 2.5 to 3.5 target INR of 3). Davide GH, et al. Chest 2012; 141:7S-47S Deshawn RA et al. [facility] 2017; 70: 252-289 Performed By: #### G LMET #### [facility] [address] [place], [place] [address] PT Coag (PPP) [Time] 10.7 s Normal 9.7-13.0 [facility] Comment on above: Performed By: #### G LMET #### [facility] [address] [place], [place] [address] INR Coag (PPP) [Relative time] 0.98 {INR} Normal 0.90-1.30 [facility] Comment on above: Result Comment: Marly min K Antagonist (VKA) Therapeutic Range: INR 2 to 3 (Target INR of 2.5) Note: For patients treated with VKA drugs, such as warfarin, the [employer] 2012 Guideline recommends a therapeutic INR range of 2 to 3 (target INR of 2.5). This recommendation includes high-risk patients with antiphospholipid syndrome with previous arterial or venous thromboembolism, current-generation mechanical or bioprosthetic aortic heart valve replacement. Note: Patients with mechanical aortic valve replacement and additional risk factors for thromboembolic events (atrial fibrillation, previous thromboembolism, LV dysfunction, hypercoagulable conditions) or an older generation mechanical AVR (i.e., ball in-Cage) or any mechanical MVR should have a INR therapeutic range of 2.5 to 3.5 target INR of 3). Davide GH, et al. Chest 2012; 141:7S-47S Deshawn MELCHOR et al. [facility] 2017; 70: 252-289 Performed By: #### P T #### [facility] [address] [place], [place] [address] PT Coag (PPP) [Time] 10.6 s Normal 9.7-13.0 [facility] Comment on above: Performed By: #### P T #### [facility] [address] [place], [place] [address] Rapid, COVID 19on 02-22-2020 Rapid, COVID 19 Negative Normal Negative [facility] Comment on above: Result Comment: This test has been authorized by the FDA under an Emergency Use Authorization (EUA). Performed By: #### G LMET #### [facility] [address] [place], [place] [address] TSHon 02-22-2020 TSH Qn 1.560 uIU/mL Normal 0.270-4.20 0 [facility] Comment on above: Result Comment: Preg steffen: 1st trimester:(9-12 weeks):0.180-2.900 uIU/mL 2nd trimester: 0.110-3.980 uIU/mL 3rd trimester: 0.480-4.710 uIU/mL Patients taking a biotin dose of up to 5 mg/day should refrain from taking biotin for 4 hours prior to sample collection. Patients taking a biotin dose of 5 to 10 mg/day should refrain from taking biotin for 8 hours prior to sample collection. Patients taking a biotin dose > 10 mg/day should consult with their physician or the laboratory prior to having a sample taken. Clinicians should consider biotin interference as a source of error, when clinically suspicious of the laboratory result. Performed By: #### G LMET #### [facility] [address] [place], [place] [address] Troponin T, High Sens.on Troponin T, High Sens. 36 ng/L High 0-11 [facility] Comment on above: Result Comment: Yovana ents taking a biotin dose of up to 5 mg/day should refrain from taking biotin for 4 hours prior to sample collection. Patients taking a biotin dose of 5 to 10 mg/day should refrain from taking biotin for 8 hours prior to sample collection. Patients taking a biotin dose > 10 mg/day should consult with their physician or the laboratory prior to having a sample taken. Clinicians should consider biotin interference as a source of error, when clinically suspicious of the laboratory result. Performed By: #### G LMET #### [place] [address] Troponin T, High Sens. 41 ng/L High 0-11 [facility] Comment on above: Result Comment: Yovana ents taking a biotin dose of up to 5 mg/day should refrain from taking biotin for 4 hours prior to sample collection. Patients taking a biotin dose of 5 to 10 mg/day should refrain from taking biotin for 8 hours prior to sample collection. Patients taking a biotin dose > 10 mg/day should consult with their physician or the laboratory prior to having a sample taken. Clinicians should consider biotin interference as a source of error, when clinically suspicious of the laboratory result. Performed By: #### G LMET #### [place] [address] Troponin T, High Sens. 43 ng/L High 0-11 [facility] Comment on above: Result Comment: Yovana ents taking a biotin dose of up to 5 mg/day should refrain from taking biotin for 4 hours prior to sample collection. Patients taking a biotin dose of 5 to 10 mg/day should refrain from taking biotin for 8 hours prior to sample collection. Patients taking a biotin dose > 10 mg/day should consult with their physician or the laboratory prior to having a sample taken. Clinicians should consider biotin interference as a source of error, when clinically suspicious of the laboratory result. Performed By: #### T ROPT #### [place] [address] Type and Screenon 02-22-2020 ABO group Nom (Bld) AB Normal [facility] Comment on above: Performed By: #### T &S #### [place] [address] Comment Emergency Room Normal [facility] Comment on above: Performed By: #### T &S #### [facility] [address] [place] [address] RH Type Positive Normal [facility] Comment on above: Performed By: #### T &S #### [facility] [address] [place] [address] Urine Drug Screenon 25-20 20 Urine Alcohol <11 Normal 0-11 [facility] Comment on above: Performed By: #### U DRG3 #### [facility] [address] [place] [address] Urine Amphetamine Negative Normal NEGATIVE [facility] Comment on above: Performed By: #### U DRG3 #### [facility] [address] [place] [address] Urine Barbiturates Negative Normal NEGATIVE [facility] Comment on above: Performed By: #### U DRG3 #### [facility] [address] [place] [address] Urine Benzodiazepine Negative Normal NEGATIVE [facility] Comment on above: Performed By: #### U DRG3 #### [facility] [address] [place] [address] Urine Cocaine Metab Negative Normal NEGATIVE [facility] Comment on above: Performed By: #### U DRG3 #### [facility] [address] [place] [address] Urine Opiates Negative Normal NEGATIVE [facility] Comment on above: Performed By: #### U DRG3 #### [facility] [address] [place] [address] Urine Oxycodone Negative Normal NEGATIVE [facility] Comment on above: Performed By: #### U DRG3 #### [facility] [address] [place] [address] Urine PCP Negative Normal NEGATIVE [facility] Comment on above: Result Comment: Test Cutoff Unit Amphetamines 1000 ng/mL Barbiturates 200 ng/mL Benzodiazepines 200 ng/mL Cannabinoids 50 ng/mL Cocaine 300 ng/mL Opiates 300 ng/mL Oxycodone 100 ng/mL Phencyclidine 25 ng/mL Reference Range: Negative at cutoff threshold Immunoassay screen only. Cross reactivity with other substances can occur with immunoassay screening. Detection of any drug(s) in this urine toxicology panel is presumptive only. These tests are for medical purposes only and should not be used for compliance monitoring, legal, or forensic use. In clinical settings, confirmatory testing is at the practitioner?s discretion.1 If clinically indicated, confirmation by high specificity, quantitative methodology may be requested on the same specimen through the laboratory at [phone]) if contacted within 48 hours of initial 1. Substance Abuse and Mental Health Services Administration (2012). Clinical Drug Testing in Primary Care Technical Assistance Publication Series 32. Department of Health and Human Services, [place], p.10. Performed By: #### U DRG3 #### [facility] [address] [place], [place] [address] Urine THC Negative Normal NEGATIVE [facility] Comment on above: Performed By: #### U DRG3 #### [facility] [address] [place], [place] [address] XR PELVIS 1V APon 02-22-2020 XR PELVIS 1V AP * * *Final Report* * * DATE OF EXAM: Feb 22 2020 1:31AM AKX [id number] - XR PELVIS 1V AP / PROCEDURE REASON: Pelvic fx, known or suspected * * * * Physician Interpretation * * * * EXAMINATION: XR PELVIS 1V AP CLINICAL HISTORY: Pelvic fx, known or suspected Comparison: 11/10/2006 RESULT: No acute fracture or dislocation. No radiopaque foreign body. No aggressive lesion. Vascular calcifications. Mild left glenohumeral degenerative productive change. Lumbar stabilization hardware. IMPRESSION: No acute fracture or dislocation. Ems Manager: HARDIK Transcribe Date/Time: Feb 22 2020 1:43A Dictated by : SUZIE MARTINEZ MD This examination was interpreted and the report reviewed and electronically signed by: SUZIE MARTINEZ MD on Feb 22 2020 1:51AM EST Normal [facility] Chart Maintenanceon 04-12-20 17 HbA1c 6.4 % Invalid Interpretation Code [facility] Work Phone: Office Visit: [facility] 03-22-20 17 Dietary management education, guidance, and counseling (procedure) yes Invalid Interpretation Code [facility] Work Phone: Documentation of current medications (procedure) Done Invalid Interpretation Code [facility] Work Phone: Fall risk assessment No Invalid Interpretation Code [facility] Work Phone: [phone] Protein mass conc Done [facility] Work Phone: [phone] Lab Report: Basic Metabolic Profile (BMP)on 02-07-2017 Anion gap 9 mmol/L Invalid Interpretation Code 5-15 [facility] Work Phone: [phone] Anion gap molar conc 9 mmol/L 5-[address] [facility] [address] [facility] Work Phone: [phone] BUN/Creatinine Ratio 19.4 RATIO Invalid Interpretation Code 10-20 [facility] Work Phone: [phone] Calcium 8.8 mg/dL Invalid Interpretation Code 8.5-10.1 [facility] Work Phone: [phone] Chloride 104 mmol/L Invalid Interpretation Code 98-107 [facility] Work Phone: [phone] CO2 30.0 mmol/L Invalid Interpretation Code 21.0-32.0 [facility] Work Phone: [phone] CO2 ppres (BldV) 30.0 mmol/L 21.0-32.0 [facility] Work Phone: [phone] Creatinine 1.44 mg/dL High 0.70-1.30 [facility] Work Phone: [phone] eGFR (non-black) 51 mL/min/{1.73_m2} Low >60 [facility] Work Phone: [phone] eGFR (non-black) 62 mL/min/{1.73_m2} Invalid Interpretation Code >60 [facility] Work Phone: [phone] EST GFR - AA 62 mL/min >60 [facility] Work Phone: [phone] Glucose 130 mg/dL High 70-110 [facility] Work Phone: [phone] Glucose mass conc 130 mg/dL High 70-110 [facility] Work Phone: [phone] Potassium 3.6 mmol/L Invalid Interpretation Code 3.5-5.1 [facility] Work Phone: [phone] Sodium 143 mmol/L Invalid Interpretation Code 136-145 [facility] Work Phone: Urea nitrogen 28 mg/dL High 7-18 [facility] Work Phone: [phone] Lab Report: CBC-Complete Blo od Cnt No Diffon 02-07-2017 Erythrocyte distribution width Ratio (RBC) 50.1 fL High 35.1-43.9 [facility] Work Phone: [phone] Erythrocyte distribution width Ratio (RBC) 14.8 % High 11.6-14.6 [facility] Work Phone: [phone] Erythrocytes (RBC) 4.61 10*6/uL Invalid Interpretation Code 4.6-6.2 [facility] Work Phone: [phone] Hematocrit (HCT) 42.7 % Invalid Interpretation Code 40-54 [facility] Work Phone: [phone] Hematocrit Volume Fraction (Bld) 42.7 % 40-54 [facility] Work Phone: [phone] Hemoglobin (HGB) 14.1 g/dL Invalid Interpretation Code 13.0-16.5 [facility] Work Phone: [phone] MCH 30.6 pg Invalid Interpretation Code 27.0-32.0 [facility] Work Phone: [phone] MCH Entitic mass (RBC) 30.6 pg 27.0-32.0 [facility] Work Phone: [phone] MCHC 33.0 G/GL Invalid Interpretation Code 32-36 [facility] Work Phone: [phone] MCHC mass conc (RBC) 33.0 G/GL 32-[address] [facility] Work Phone: [phone] MCV 92.6 fL Invalid Interpretation Code 80-94 [facility] Work Phone: [phone] MCV Entitic volume (RBC) 92.6 fL 80-94 [facility] Work Phone: [phone] Platelet mean volume Entitic volume (Bld) 10.9 fL 6.2-12.0 [facility] Work Phone: [phone] Platelets 204 10*3/mm3 Invalid Interpretation Code 150-450 [facility] Work Phone: [phone] Platelets #/vol (Bld) 204 10*3/mm3 150-450 [facility] Work Phone: [phone] PMV by Rosy 10.9 fL Invalid Interpretation Code 6.2-12.0 [facility] Work Phone: [phone] RBC #/vol (Bld) 4.61 10*6/uL 4.6-6.2 [facility] Work Phone: [phone] RDW-CA 14.8 % High 11.6-14.6 [facility] Work Phone: [phone] red blood cell distribution width, size density 50.1 fL High 35.1-43.9 [facility] Work Phone: [phone] WBC #/vol (Bld) 6.4 10*3/uL 4.4-11.0 [facility] Phone: [phone] WBC (Leukocytes) 6.4 10*3/uL Invalid Interpretation Code 4.4-11.0 [facility] Phone: [phone] Office Visiton 12-13-2016 Dietary management education, guidance, and counseling (procedure) yes Invalid Interpretation Code [facility] Phone: [phone] Documentation of current medications (procedure) Done Invalid Interpretation Code [facility] Phone: [phone] Protein mass conc Done [facility] Phone: [phone] Replaced Document: Oscar E CG Observationson 12-13-2016 EKG QRS axis -27 deg [facility] Phone: [phone] electrocardiogram interpretation Sinus Rhythm -Inferior infarct -probably not recent -Poor R-wave progression -nonspecific -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 ABNORMAL [facility] Work Phone: [phone] P [place] -1 deg [facility] Work Phone: P wave axis, electrocardiogram -1 deg Invalid Interpretation Code [facility] Work Phone: ME Interval 166 ms [facility] Work Phone: ME interval, electrocardiogram 166 ms Invalid Interpretation Code [facility] Work Phone: Pulse (Heart Rate) 71 /min Invalid Interpretation Code [facility] Work Phone: QRS axis, electrocardiogram -27 deg Invalid Interpretation Code [facility] Work Phone: QRS Duration 92 ms [facility] Work Phone: QRS duration, electrocardiogram 92 ms Invalid Interpretation Code [facility] Work Phone: QT Interval new path ms [facility] Work Phone: [phone] QT interval, electrocardiogram new path ms Invalid Interpretation Code [facility] Work Phone: QTc Lino 411 ms [facility] Work Phone: T [place] -1 deg [facility] Work Phone: [phone] T wave axis, electrocardiogram -1 deg Invalid Interpretation Code [facility] Work Phone: Clinical Lists 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: 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 Jayme Yang MD Work Phone: [facility] 02-15-2025 18:52-0400 Diastolic blood pressure 74 mm[Hg] Dr. Jayme Yang MD Work Phone: [facility] 02-15-2025 18:52-0400 Heart rate 86 /min Dr. Jayme Yang MD Work Phone: 4(348)594-500387 [place] [address] 02-15-2025 18:52-0400 Respiratory rate 20 /min Dr. Jayme Yang MD Work Phone: 6(254)918-308815 [place] [address] 02-15-2025 18:52-0400 SaO2% (BldA) [Mass fraction] 93 % Dr. Jayme Yang MD Work Phone: 4(294)326-181115 [place] [address] 02-15-2025 18:52-0400 Systolic blood pressure 138 mm[Hg] Dr. Jayme Yang MD Work Phone: 2(672)783-141615 [place] [address] 02-15-2025 16:31-0400 Body height 165.[address] Jayme Yang MD Work Phone: 2(789)263-413515 [place] [address] 02-15-2025 16:31-0400 Body mass index (BMI) [Ratio] 29.3 kg/m2 Dr. Jayme Yang MD Work Phone: 4(566)146-174215 [place] [address] 02-15-2025 16:31-0400 Body weight 80.[address] Jayme Yang MD Work Phone: 1(282)946-467615 [place] [address] 11-27-2024 08:24-0500 Body height 170.[address] Jayme Yang MD Work Phone: 7(467)419-471215 [place] [address] 11-27-2024 08:24-0500 Body mass index (BMI) [Ratio] 28.5 kg/m2 Dr. Jayme Yang MD Work Phone: 5(648)974-981915 [place] [address] 11-27-2024 08:24-0500 Body weight 82.[address] Jayme Yang MD Work Phone: 9(307)810-516615 [place] [address] 11-27-2024 08:24-0500 Diastolic blood pressure 78 mm[Hg] Dr. Jayme Yang MD Work Phone: 4(156)945-855515 [place] [address] 11-27-2024 08:24-0500 Heart rate 75 /min Dr. Jayme Yang MD Work Phone: 7(660)318-766715 [place] [address] 11-27-2024 08:24-0500 Respiratory rate 16 /min Dr. Jayme Yang MD Work Phone: [facility] 11-27-2024 08:24-0500 Systolic blood pressure 144 mm[Hg] Dr. Jayme Yang MD Work Phone: 3(955)013-719315 [place] [address] 11-17-2024 09:00-0500 Body mass index (BMI) [Ratio] 27.7 kg/m2 Dr. Jayme Yang MD Work Phone: 2(811)641-461315 [place] [address] 11-17-2024 09:00-0500 Body temperature 96.9 [degF] Dr. Jayme Yang MD Work Phone: 8(990)482-144015 [place] [address] 11-17-2024 09:00-0500 Body weight 80.[address] Jayme Yang MD Work Phone: 9(663)271-199615 [place] [address] 11-17-2024 09:00-0500 Diastolic blood pressure 78 mm[Hg] Dr. Jayme Yang MD Work Phone: 7(003)115-726015 [place] [address] 11-17-2024 09:00-0500 Heart rate 64 /min Dr. Jayme Yang MD Work Phone: 2(630)783-209188 [address] 11-17-2024 09:00-0500 Respiratory rate 20 /min Dr. Jayme Yang MD Work Phone: 8(754)131-529615 [place] [address] 11-17-2024 09:00-0500 SaO2% (BldA) [Mass fraction] 94 % Dr. Jayme Yang MD Work Phone: 4(636)357-931587 [place] [address] 11-17-2024 09:00-0500 Systolic blood pressure 178 mm[Hg] Dr. Jayme Yang MD Work Phone: 1(381)113-702215 [place] [address] 10-06-2024 09:32-0500 Body mass index (BMI) [Ratio] 28.5 kg/m2 Dr. Jayme Yang MD Work Phone: 0(189)209-529815 [place] [address] 10-06-2024 09:32-0500 Body temperature 97.7 [degF] Dr. Jayme Yang MD Work Phone: 9(698)635-029888 [address] 10-06-2024 09:32-0500 Body weight 82.[address] Jayme Yang MD Work Phone: [facility] 10-06-2024 09:32-0500 Diastolic blood pressure 78 mm[Hg] Dr. Jayme Yang MD Work Phone: [facility] 10-06-2024 09:32-0500 Heart rate 68 /min Dr. Jayme Yang MD Work Phone: [facility] 10-06-2024 09:32-0500 Respiratory rate 16 /min Dr. Jayme Yang MD Work Phone: [facility] 10-06-2024 09:32-0500 SaO2% (BldA) [Mass fraction] 95 % Dr. Jayme Yang MD Work Phone: [facility] 10-06-2024 09:32-0500 Systolic blood pressure 168 mm[Hg] Dr. Jayme Yang MD Work Phone: [facility] 12-11-2023 09:24-0400 Body height 170.[address] Jayme Yang Work Phone: [facility] 12-11-2023 09:24-0400 Body mass index (BMI) [Ratio] 34 kg/m2 Dr. Jayme Yang Work Phone: [facility] 12-11-2023 09:24-0400 Body weight 98.[address] Jayme Yang Work Phone: [facility] 12-11-2023 09:24-0400 Diastolic blood pressure 79 mm[Hg] Dr. Jayme Yang Work Phone: [facility] 12-11-2023 09:24-0400 Heart rate 80 /min Dr. Jayme Yang Work Phone: [facility] 12-11-2023 09:24-0400 Respiratory rate 18 /min Dr. Jayme Yang Work Phone: [facility] 12-11-2023 09:24-0400 Systolic blood pressure 146 mm[Hg] Dr. Jayme Yang Work Phone: [facility] 11-21-2023 07:44-0500 Body mass index (BMI) [Ratio] 34.2 kg/m2 Dr. Jayme Yang Work Phone: [facility] 11-21-2023 07:44-0500 Body temperature 97.1 [degF] Dr. Jayme Yang Work Phone: [facility] 11-21-2023 07:44-0500 Body weight 99.[address] Jayme Yang Work Phone: [facility] 11-21-2023 07:44-0500 Diastolic blood pressure 89 mm[Hg] Dr. Jayme Yang Work Phone: [facility] 11-21-2023 07:44-0500 Heart rate 80 /min Dr. Jayme Yang Work Phone: [facility] 11-21-2023 07:44-0500 Respiratory rate 20 /min Dr. Jayme Yang Work Phone: [facility] 11-21-2023 07:44-0500 SaO2% (BldA) [Mass fraction] 95 % Dr. Jayme Yang Work Phone: [facility] 11-21-2023 07:44-0500 Systolic blood pressure 172 mm[Hg] Dr. Jayme Yang Work Phone: [facility] 11-19-2023 08:58-0500 Body mass index (BMI) [Ratio] 34.7 kg/m2 Dr. Jayme Yang Work Phone: [facility] 11-19-2023 08:58-0500 Body temperature 98.7 [degF] Dr. Jayme Yang Work Phone: [facility] 11-19-2023 08:58-0500 Body weight 100.[address] Jayme Yang Work Phone: [facility] 11-19-2023 08:58-0500 Diastolic blood pressure 74 mm[Hg] Dr. Jayme Yang Work Phone: [facility] 11-19-2023 08:58-0500 Heart rate 81 /min Dr. Jayme Yang Work Phone: [facility] 11-19-2023 08:58-0500 Respiratory rate 18 /min Dr. Jayme Yang Work Phone: [facility] 11-19-2023 08:58-0500 SaO2% (BldA) [Mass fraction] 92 % Dr. Jayme Yang Work Phone: [facility] 11-19-2023 08:58-0500 Systolic blood pressure 149 mm[Hg] Dr. Jayme Yang Work Phone: [facility] 11-13-2023 13:18-0500 Heart rate 91 /min Dr. Jayme Yang Work Phone: [facility] 11-13-2023 12:58-0500 Body temperature 98 [degF] Dr. Jayme Yang Work Phone: [facility] 11-13-2023 12:58-0500 Diastolic blood pressure 94 mm[Hg] Dr. Jayme Yang Work Phone: [facility] 11-13-2023 12:58-0500 Respiratory rate 18 /min Dr. Jayme Yang Work Phone: [facility] 11-13-2023 12:58-0500 SaO2% (BldA) [Mass fraction] 93 % Dr. Jayme Yang Work Phone: [facility] 11-13-2023 12:58-0500 Systolic blood pressure 176 mm[Hg] Dr. Jayme Yang Work Phone: [facility] 11-13-2023 08:11-0500 Inhaled oxygen flow rate 2 L/min Dr. Jayme Yang Work Phone: [facility] 11-11-2023 22:52-0500 Body height 170.[address] Jayme Yang Work Phone: [facility] 11-11-2023 22:52-0500 Body mass index (BMI) [Ratio] 34.3 kg/m2 Dr. Jayme Yang Work Phone: [facility] 11-11-2023 22:52-0500 Body weight 99.[address] Jayme Yang Work Phone: [facility] 11-11-2023 22:37-0500 Body temperature 98 [degF] Dr. Jayme Yang Work Phone: 2(495)179-57[address] [place] [address] 11-11-2023 22:37-0500 Diastolic blood pressure 84 mm[Hg] Dr. Jayme Yang Work Phone: 7(822)459-014187 [place] [address] 11-11-2023 22:37-0500 Heart rate 89 /min Dr. Jayme Yang Work Phone: 3(838)297-080987 [place] [address] 11-11-2023 22:37-0500 Respiratory rate 24 /min Dr. Jayme Yang Work Phone: 5(741)246-383187 [place] [address] 11-11-2023 22:37-0500 SaO2% (BldA) [Mass fraction] 95 % Dr. Jayme Yang Work Phone: [facility] 11-11-2023 22:37-0500 Systolic blood pressure 163 mm[Hg] Dr. Jayme Yang Work Phone: 2(922)271-481288 [address] 11-11-2023 19:48-0500 Inhaled oxygen flow rate 2 L/min Dr. Jayme Yang Work Phone: 5(711)015-387387 [place] [address] 11-11-2023 19:45-0500 Body height 170.[address] Jayme Yang Work Phone: [facility] 11-11-2023 19:45-0500 Body mass index (BMI) [Ratio] 35.4 kg/m2 Dr. Jayme Yang Work Phone: 6(356)277-198487 [place] [address] 11-11-2023 19:45-0500 Body weight 102.[address] Jayme Yang Work Phone: 4(069)352-064788 [address] 10-16-2023 08:07-0500 Body height 170.[address] Jayme Yang Work Phone: 0(223)037-183788 [address] 10-16-2023 08:07-0500 Body mass index (BMI) [Ratio] 33.2 kg/m2 Dr. Jayme Yang Work Phone: [facility] 10-16-2023 08:07-0500 Body temperature 98.2 [degF] Dr. Jayme Yang Work Phone: [facility] 10-16-2023 08:07-0500 Body weight 96.[address] Jayme Yang Work Phone: [facility] 10-16-2023 08:07-0500 Diastolic blood pressure 90 mm[Hg] Dr. Jayme Yang Work Phone: 6(076)899-492988 [address] 10-16-2023 08:07-0500 Heart rate 83 /min Dr. Jayme Yang Work Phone: 8(289)[phone] [address] 10-16-2023 08:07-0500 Respiratory rate 18 /min Dr. Jayme Yang Work Phone: 7(414)688-746287 [place] [address] 10-16-2023 08:07-0500 SaO2% (BldA) [Mass fraction] 91 % Dr. Jayme Yang Work Phone: [facility] 10-16-2023 08:07-0500 Systolic blood pressure 166 mm[Hg] Dr. Jayme Yang Work Phone: [facility] 10-09-2023 08:15-0500 Body mass index (BMI) [Ratio] 34.7 kg/m2 Dr. Jayme Yang Work Phone: [facility] 10-09-2023 08:15-0500 Body temperature 97.9 [degF] Dr. Jayme Yang Work Phone: 8(379)478-136787 [place] [address] 10-09-2023 08:15-0500 Body weight 100.[address] Jayme Yang Work Phone: [facility] 10-09-2023 08:15-0500 Diastolic blood pressure 76 mm[Hg] Dr. Jayme Yang Work Phone: [facility] 10-09-2023 08:15-0500 Heart rate 69 /min Dr. Jayme Yang Work Phone: [facility] 10-09-2023 08:15-0500 Respiratory rate 16 /min Dr. Jayme Yang Work Phone: [facility] 10-09-2023 08:15-0500 SaO2% (BldA) [Mass fraction] 91 % Dr. Jayme Yang Work Phone: [facility] 10-09-2023 08:15-0500 Systolic blood pressure 155 mm[Hg] Dr. Jayme Yang Work Phone: 1(291)506-221088 [address] 10-02-2023 08:15-0500 Body mass index (BMI) [Ratio] 33.5 kg/m2 Dr. Jayme Yang Work Phone: 5(496)850-421088 [address] 10-02-2023 08:15-0500 Body temperature 98.5 [degF] Dr. Jayme Yang Work Phone: 0(220)126-855687 [place] [address] 10-02-2023 08:15-0500 Body weight 97.[address] Jayme Yang Work Phone: 1(780)617-692588 [address] 10-02-2023 08:15-0500 Diastolic blood pressure 86 mm[Hg] Dr. Jayme Yang Work Phone: 9(867)941-793987 [place] [address] 10-02-2023 08:15-0500 Heart rate 86 /min Dr. Jayme Yang Work Phone: 9(212)243-354987 [place] [address] 10-02-2023 08:15-0500 Respiratory rate 18 /min Dr. Jayme Yang Work Phone: [facility] 10-02-2023 08:15-0500 SaO2% (BldA) [Mass fraction] 91 % Dr. Jayme Yang Work Phone: 8(033)870-549387 [place] [address] 10-02-2023 08:15-0500 Systolic blood pressure 173 mm[Hg] Dr. Jayme Yang Work Phone: 4(867)866-812288 [address] 09-25-2023 08:28-0500 Body mass index (BMI) [Ratio] 33.7 kg/m2 Dr. Jayme Yang Work Phone: [facility] 09-25-2023 08:28-0500 Body temperature 98.1 [degF] Dr. Jayme Yang Work Phone: [facility] 09-25-2023 08:28-0500 Body weight 97.[address] Jayme Yang Work Phone: [facility] 09-25-2023 08:28-0500 Diastolic blood pressure 76 mm[Hg] Dr. Jayme Yang Work Phone: [facility] 09-25-2023 08:28-0500 Heart rate 84 /min Dr. Jayme Yang Work Phone: [facility] 09-25-2023 08:28-0500 Respiratory rate 16 /min Dr. Jayme Yang Work Phone: [facility] 09-25-2023 08:28-0500 SaO2% (BldA) [Mass fraction] 92 % Dr. Jayme Yang Work Phone: [facility] 09-25-2023 08:28-0500 Systolic blood pressure 163 mm[Hg] Dr. Jayme Yang Work Phone: [facility] 09-24-2023 07:42-0500 SaO2% (BldA) [Mass fraction] 97 % Dr. Jayme Yang Work Phone: [facility] 09-24-2023 07:35-0500 Body temperature 97.8 [degF] Dr. Jayme Yang Work Phone: [facility] 09-24-2023 07:35-0500 Diastolic blood pressure 91 mm[Hg] Dr. Jayme Yang Work Phone: [facility] 09-24-2023 07:35-0500 Heart rate 87 /min Dr. Jayme Yang Work Phone: [facility] 09-24-2023 07:35-0500 Respiratory rate 18 /min Dr. Jayme Yang Work Phone: [facility] 09-24-2023 07:35-0500 Systolic blood pressure 168 mm[Hg] Dr. Jayme Yang Work Phone: [facility] 09-24-2023 04:53-0500 Inhaled oxygen flow rate 5 L/min Dr. Jayme Yang Work Phone: [facility] 09-20-2023 16:01-0500 Body height 170.[address] Jayme Yang Work Phone: [facility] 09-20-2023 16:01-0500 Body mass index (BMI) [Ratio] 34.2 kg/m2 Dr. Jayme Yang Work Phone: [facility] 09-20-2023 16:01-0500 Body weight 99.[address] Jayme Yang Work Phone: [facility] 09-20-2023 15:45-0500 Body temperature 98.1 [degF] Dr. Jayme Yang Work Phone: [facility] 09-20-2023 15:45-0500 Diastolic blood pressure 89 mm[Hg] Dr. Jayme Yang Work Phone: [facility] 09-20-2023 15:45-0500 Heart rate 91 /min Dr. Jayme Yang Work Phone: [facility] 09-20-2023 15:45-0500 Respiratory rate 16 /min Dr. Jayme Yang Work Phone: [facility] 09-20-2023 15:45-0500 Systolic blood pressure 159 mm[Hg] Dr. Jayem Yang Work Phone: [facility] 09-20-2023 14:40-0500 SaO2% (BldA) [Mass fraction] 93 % Dr. Jayme Yang Work Phone: [facility] 09-20-2023 12:37-0500 Body height 170.[address] Jayme Yang Work Phone: [facility] 09-20-2023 12:37-0500 Body mass index (BMI) [Ratio] 34 kg/m2 Dr. Jayme Yang Work Phone: [facility] 09-20-2023 12:37-0500 Body weight 98.[address] Jayme Yang Work Phone: [facility] 09-18-2023 08:31-0500 Body height 170.[address] Jayme Yang Work Phone: [facility] 09-18-2023 08:27-0500 Body mass index (BMI) [Ratio] 33.7 kg/m2 Dr. Jayme Yang Work Phone: 4(713)265-264315 [place] [address] 09-18-2023 08:27-0500 Body temperature 97.5 [degF] Dr. Jayme Yang Work Phone: 0(040)764-611515 [place] [address] 09-18-2023 08:27-0500 Body weight 97.[address] Jayme Yang Work Phone: 7(305)539-186687 [place] [address] 09-18-2023 08:27-0500 Diastolic blood pressure 81 mm[Hg] Dr. Jayme Yang Work Phone: 3(974)736-019415 [place] [address] 09-18-2023 08:27-0500 Heart rate 86 /min Dr. Jayme Yang Work Phone: 9(044)090-338615 [place] [address] 09-18-2023 08:27-0500 Respiratory rate 18 /min Dr. Jayme Yang Work Phone: 4(192)299-852188 [address] 09-18-2023 08:27-0500 SaO2% (BldA) [Mass fraction] 92 % Dr. Jayme Yang Work Phone: [facility] 09-18-2023 08:27-0500 Systolic blood pressure 160 mm[Hg] Dr. Jayme Yang Work Phone: 4(584)036-422788 [address] 09-11-2023 08:27-0500 Body mass index (BMI) [Ratio] 34.3 kg/m2 Dr. Jayme aYng Work Phone: 5(066)275-925688 [address] 09-11-2023 08:27-0500 Body temperature 97.3 [degF] Dr. Jayme Yang Work Phone: [facility] 09-11-2023 08:27-0500 Body weight 99.[address] Jayme Yang Work Phone: [facility] 09-11-2023 08:27-0500 Diastolic blood pressure 77 mm[Hg] Dr. Jayme Yang Work Phone: [facility] 09-11-2023 08:27-0500 Heart rate 73 /min Dr. Jayme Yang Work Phone: [facility] 09-11-2023 08:27-0500 Respiratory rate 18 /min Dr. Jayme Yang Work Phone: [facility] 09-11-2023 08:27-0500 SaO2% (BldA) [Mass fraction] 92 % Dr. Jayme Yang Work Phone: [facility] 09-11-2023 08:27-0500 Systolic blood pressure 149 mm[Hg] Dr. Jayme Yang Work Phone: [facility] 09-05-2023 10:28-0500 SaO2% (BldA) [Mass fraction] 93 % Dr. Jayme Yang Work Phone: [facility] 09-05-2023 10:00-0500 Respiratory rate 18 /min Dr. Jayme Yang Work Phone: [facility] 09-05-2023 09:57-0500 Body temperature 98.1 [degF] Dr. Jayme Yang Work Phone: [facility] 09-05-2023 09:57-0500 Diastolic blood pressure 92 mm[Hg] Dr. Jayme Yang Work Phone: [facility] 09-05-2023 09:57-0500 Heart rate 82 /min Dr. Jayme Yang Work Phone: [facility] 09-05-2023 09:57-0500 Systolic blood pressure 165 mm[Hg] Dr. Jayme Yang Work Phone: [facility] 09-05-2023 07:39-0500 Inhaled oxygen flow rate 2 L/min Dr. Jayme Yang Work Phone: [facility] 09-04-2023 14:00-0500 Body temperature 98.9 [degF] Dr. Jayme Yang Work Phone: [facility] 09-04-2023 14:00-0500 Diastolic blood pressure 97 mm[Hg] Dr. Jayme Yang Work Phone: [facility] 09-04-2023 14:00-0500 SaO2% (BldA) [Mass fraction] 95 % Dr. Jayme Yang Work Phone: [facility] 09-04-2023 14:00-0500 Systolic blood pressure 183 mm[Hg] Dr. Jayme Yang Work Phone: [facility] 09-04-2023 09:49-0500 Heart rate 68 /min Dr. Jayme Yang Work Phone: [facility] 09-04-2023 09:28-0500 Respiratory rate 19 /min Dr. Jayme Yang Work Phone: [facility] 09-04-2023 08:15-0500 Inhaled oxygen flow rate 2 L/min Dr. Jayme Yang Work Phone: [facility] 09-04-2023 06:41-0500 Body temperature 97.3 [degF] Dr. Jayme Yang Work Phone: [facility] 09-04-2023 06:41-0500 Diastolic blood pressure 99 mm[Hg] Dr. Jayme Yang Work Phone: [facility] 09-04-2023 06:41-0500 SaO2% (BldA) [Mass fraction] 97 % Dr. Jayme Yang Work Phone: [facility] 09-04-2023 06:41-0500 Systolic blood pressure 204 mm[Hg] Dr. Jayme Yang Work Phone: [facility] 09-04-2023 06:12-0500 Body height 170.[address] Jayme Yang Work Phone: [facility] 09-04-2023 06:12-0500 Body mass index (BMI) [Ratio] 33.1 kg/m2 Dr. Jayme Yang Work Phone: [facility] 09-04-2023 06:12-0500 Body weight 96.[address] Jayme Yang Work Phone: [facility] 09-04-2023 03:16-0500 Heart rate 60 /min Dr. Jayme Yang Work Phone: [facility] 09-04-2023 03:16-0500 Respiratory rate 20 /min Dr. Jayme Yang Work Phone: [facility] 09-03-2023 23:18-0500 Body height 167.[address] Jayme Yang Work Phone: [facility] 09-03-2023 23:18-0500 Body mass index (BMI) [Ratio] 35.9 kg/m2 Dr. Jayme Yang Work Phone: [facility] 09-03-2023 23:18-0500 Body weight 100.[address] Jayme Yang Work Phone: [facility] 08-13-2023 05:56-0500 Body mass index (BMI) [Ratio] 34.7 kg/m2 Dr. Jayme Yang Work Phone: [facility] 08-13-2023 05:56-0500 Body temperature 97.2 [degF] Dr. Jayme Yang Work Phone: [facility] 08-13-2023 05:56-0500 Body weight 97.[address] Jayme Yang Work Phone: [facility] 08-13-2023 05:56-0500 Diastolic blood pressure 85 mm[Hg] Dr. Jayme Yang Work Phone: [facility] 08-13-2023 05:56-0500 Heart rate 74 /min Dr. Jayme Yang Work Phone: [facility] 08-13-2023 05:56-0500 SaO2% (BldA) [Mass fraction] 95 % Dr. Jayme Yang Work Phone: [facility] 08-13-2023 05:56-0500 Systolic blood pressure 174 mm[Hg] Dr. Jayme Yang Work Phone: [facility] 08-07-2023 12:07-0500 Body temperature 97.3 [degF] Dr. Jayme Yang Work Phone: [facility] 08-07-2023 12:07-0500 Diastolic blood pressure 77 mm[Hg] Dr. Jayme Yang Work Phone: [facility] 08-07-2023 12:07-0500 Heart rate 63 /min Dr. Jayme Yang Work Phone: [facility] 08-07-2023 12:07-0500 Respiratory rate 16 /min Dr. Jayme Yang Work Phone: [facility] 08-07-2023 12:07-0500 SaO2% (BldA) [Mass fraction] 92 % Dr. Jayme Yang Work Phone: [facility] 08-07-2023 12:07-0500 Systolic blood pressure 147 mm[Hg] Dr. Jayme Yang Work Phone: [facility] 08-07-2023 11:45-0500 Inhaled oxygen flow rate 4 L/min Dr. Jayme Yang Work Phone: [facility] 08-07-2023 08:56-0500 Body height 167.[address] Jayme Yang Work Phone: [facility] 08-07-2023 08:56-0500 Body mass index (BMI) [Ratio] 35.2 kg/m2 Dr. Jayme Yang Work Phone: [facility] 08-07-2023 08:56-0500 Body weight [address] Jayme Yang Work Phone: [facility] 07-02-2023 09:01-0400 Body mass index (BMI) [Ratio] 33.9 kg/m2 Dr. Jayme Yang Work Phone: [facility] 07-02-2023 09:01-0400 Body temperature 98.2 [degF] Dr. Jayme Yang Work Phone: [facility] 07-02-2023 09:01-0400 Body weight 95.[address] Jayme Yang Work Phone: [facility] 07-02-2023 09:01-0400 Diastolic blood pressure 72 mm[Hg] Dr. Jayme Yang Work Phone: [facility] 07-02-2023 09:01-0400 Heart rate 80 /min Dr. Jayme Yang Work Phone: [facility] 07-02-2023 09:01-0400 Respiratory rate 18 /min Dr. Jayme Yang Work Phone: [facility] 07-02-2023 09:01-0400 SaO2% (BldA) [Mass fraction] 92 % Dr. Jayme Yang Work Phone: [facility] 07-02-2023 09:01-0400 Systolic blood pressure 158 mm[Hg] Dr. Jayme Yang Work Phone: [facility] 05-24-2023 09:43-0400 Body height 170.[address] Jayme Yang Work Phone: [facility] 05-24-2023 09:43-0400 Body mass index (BMI) [Ratio] 34.9 kg/m2 Dr. Jayme Yang Work Phone: [facility] 05-24-2023 09:43-0400 Body weight 101.[address] Jayme Yang Work Phone: [facility] 05-24-2023 09:43-0400 Diastolic blood pressure 81 mm[Hg] Dr. Jayme Yang Work Phone: [facility] 05-24-2023 09:43-0400 Heart rate 74 /min Dr. Jayme Yang Work Phone: [facility] 05-24-2023 09:43-0400 Respiratory rate 20 /min Dr. Jayme Yang Work Phone: [facility] 05-24-2023 09:43-0400 SaO2% (BldA) [Mass fraction] 93 % Dr. Jayme Yang Work Phone: [facility] 05-24-2023 09:43-0400 Systolic blood pressure 150 mm[Hg] Dr. Jayme Yang Work Phone: [facility] 05-21-2023 05:44-0400 Body mass index (BMI) [Ratio] 34.4 kg/m2 Dr. Jayme Yang Work Phone: [facility] 05-21-2023 05:44-0400 Body temperature 96.5 [degF] Dr. Jayme Yang Work Phone: [facility] 05-21-2023 05:44-0400 Body weight 99.[address] Jayme Yang Work Phone: [facility] 05-21-2023 05:44-0400 Diastolic blood pressure 85 mm[Hg] Dr. Jayme Yang Work Phone: [facility] 05-21-2023 05:44-0400 Heart rate 74 /min Dr. Jayme Yang Work Phone: [facility] 05-21-2023 05:44-0400 Respiratory rate 20 /min Dr. Jayme Yang Work Phone: [facility] 05-21-2023 05:44-0400 SaO2% (BldA) [Mass fraction] 96 % Dr. Jayme Yang Work Phone: [facility] 05-21-2023 05:44-0400 Systolic blood pressure 159 mm[Hg] Dr. Jayme Yang Work Phone: [facility] 04-04-2023 07:48-0400 Body height 170.[address] Jayme Yang Work Phone: [facility] 04-04-2023 07:48-0400 Body mass index (BMI) [Ratio] 31.6 kg/m2 Dr. Jayme Yang Work Phone: [facility] 04-04-2023 07:48-0400 Body temperature 97.6 [degF] Dr. Jayme Yang Work Phone: [facility] 04-04-2023 07:48-0400 Body weight 91.[address] Jayme Yang Work Phone: [facility] 04-04-2023 07:48-0400 Diastolic blood pressure 88 mm[Hg] Dr. Jayme Yang Work Phone: [facility] 04-04-2023 07:48-0400 Heart rate 82 /min Dr. Jayme Yang Work Phone: [facility] 04-04-2023 07:48-0400 Respiratory rate 20 /min Dr. Jayme Yang Work Phone: [facility] 04-04-2023 07:48-0400 SaO2% (BldA) [Mass fraction] 94 % Dr. Jayme Yang Work Phone: [facility] 04-04-2023 07:48-0400 Systolic blood pressure 160 mm[Hg] Dr. Jayme Yang Work Phone: [facility] 03-26-2023 14:37-0400 Heart rate 88 /min Dr. Jayme Yang Work Phone: [facility] 03-26-2023 14:37-0400 Respiratory rate 20 /min Dr. Jayme Yang Work Phone: [facility] 03-26-2023 14:37-0400 SaO2% (BldA) [Mass fraction] 91 % Dr. Jayme Yang Work Phone: [facility] 03-26-2023 13:00-0400 Body temperature 98 [degF] Dr. Jayme Yang Work Phone: [facility] 03-26-2023 13:00-0400 Diastolic blood pressure 86 mm[Hg] Dr. Jayme Yang Work Phone: [facility] 03-26-2023 13:00-0400 Systolic blood pressure 158 mm[Hg] Dr. Jayme Yang Work Phone: [facility] 03-25-2023 21:00-0400 Inhaled oxygen flow rate 3 L/min Dr. Jayme Yang Work Phone: 2(021)044-778387 [place] [address] 03-25-2023 13:46-0400 Body height 170.[address] Jayme Yang Work Phone: [facility] 03-25-2023 13:46-0400 Body weight 97.[address] Jayme Yang Work Phone: [facility] 03-21-2023 22:30-0400 Body mass index (BMI) [Ratio] 33.5 kg/m2 Dr. Jayme Yang Work Phone: 4(560)528-916487 [place] [address] 02-07-2023 08:00-0400 Body height 170.[address] Jayme Yang Work Phone: 3(283)724-835987 [place] [address] 02-07-2023 08:00-0400 Body mass index (BMI) [Ratio] 36.3 kg/m2 Dr. Jayme Yang Work Phone: [facility] 02-07-2023 08:00-0400 Body temperature 97.2 [degF] Dr. Jayme Yang Work Phone: 1(702)090-017187 [place] [address] 02-07-2023 08:00-0400 Body weight 105.[address] Jayme Yang Work Phone: [facility] 02-07-2023 08:00-0400 Diastolic blood pressure 76 mm[Hg] Dr. Jayme Yang Work Phone: [facility] 02-07-2023 08:00-0400 Heart rate 70 /min Dr. Jayme Yang Work Phone: [facility] 02-07-2023 08:00-0400 Respiratory rate 20 /min Dr. Jayme Yang Work Phone: [facility] 02-07-2023 08:00-0400 SaO2% (BldA) [Mass fraction] 93 % Dr. Jayme Yang Work Phone: [facility] 02-07-2023 08:00-0400 Systolic blood pressure 143 mm[Hg] Dr. Jayme Yang Work Phone: [facility] 10-22-2022 13:23-0500 Body height 170.[address] Jayme Yang Work Phone: [facility] 10-22-2022 13:23-0500 Body mass index (BMI) [Ratio] 34 kg/m2 Dr. Jayme Yang Work Phone: [facility] 10-22-2022 13:23-0500 Body weight 98.[address] Jayme Yang Work Phone: [facility] 10-22-2022 13:23-0500 Diastolic blood pressure 87 mm[Hg] Dr. Jayme Yang Work Phone: [facility] 10-22-2022 13:23-0500 Systolic blood pressure 146 mm[Hg] Dr. Jayme Yang Work Phone: [facility] 10-05-2022 18:18-0500 Body temperature 98.1 [degF] Dr. Jayme Yang Work Phone: [facility] 10-05-2022 18:18-0500 Diastolic blood pressure 80 mm[Hg] Dr. Jayme Yang Work Phone: [facility] 10-05-2022 18:18-0500 Heart rate 88 /min Dr. Jayme Yang Work Phone: [facility] 10-05-2022 18:18-0500 Respiratory rate 18 /min Dr. Jayme Yang Work Phone: [facility] 10-05-2022 18:18-0500 SaO2% (BldA) [Mass fraction] 97 % Dr. Jayme Yang Work Phone: [facility] 10-05-2022 18:18-0500 Systolic blood pressure 144 mm[Hg] Dr. Jayme Yang Work Phone: [facility] 10-05-2022 10:24-0500 Body height 170.[address] Jayme Yang Work Phone: [facility] 10-05-2022 10:24-0500 Body weight 98.[address] Jayme Yang Work Phone: [facility] 10-04-2022 23:35-0500 Inhaled oxygen flow rate 2 L/min Dr. Jayme Yang Work Phone: [facility] 10-04-2022 19:28-0500 Body temperature 98.8 [degF] Dr. Jayme Yang Work Phone: [facility] Work Phone: 10-04-2022 19:28-0500 Diastolic blood pressure 72 mm[Hg] Dr. Jayme Yang Work Phone: [facility] Work Phone: 10-04-2022 19:28-0500 Heart rate 84 /min Dr. Jayme Yang Work Phone: [facility] Work Phone: 10-04-2022 19:28-0500 Inhaled oxygen flow rate 2 L/min Dr. Jayme Yang Work Phone: [facility] Work Phone: 10-04-2022 19:28-0500 Respiratory rate 18 /min Dr. Jayme Yang Work Phone: [facility] Work Phone: 10-04-2022 19:28-0500 SaO2% (BldA) [Mass fraction] 94 % Dr. Jayme Yang Work Phone: [facility] Work Phone: 10-04-2022 19:28-0500 Systolic blood pressure 149 mm[Hg] Dr. Jayme Yang Work Phone: [facility] Work Phone: 10-04-2022 19:19-0500 Body height 170.[address] Jayme Yang Work Phone: [facility] Work Phone: 10-04-2022 19:19-0500 Body mass index (BMI) [Ratio] 33.9 kg/m2 Dr. Jayme Yang Work Phone: [facility] 10-04-2022 19:19-0500 Body weight 98.[address] Jayme Yang Work Phone: [facility] Work Phone: 10-02-2022 19:00-0500 Body temperature 97.6 [degF] Dr. Jayme Yang Work Phone: [facility] 10-02-2022 19:00-0500 Diastolic blood pressure 82 mm[Hg] Dr. Jayme Yang Work Phone: [facility] 10-02-2022 19:00-0500 Heart rate 83 /min Dr. Jayme Yang Work Phone: [facility] 10-02-2022 19:00-0500 Respiratory rate 18 /min Dr. Jayme Yang Work Phone: [facility] 10-02-2022 19:00-0500 SaO2% (BldA) [Mass fraction] 92 % Dr. Jayme Yang Work Phone: [facility] 10-02-2022 19:00-0500 Systolic blood pressure 184 mm[Hg] Dr. Jayme Yang Work Phone: [facility] 10-02-2022 10:25-0500 Body height 170.[address] Jayme Yang Work Phone: [facility] Work Phone: 10-02-2022 10:25-0500 Body mass index (BMI) [Ratio] 35 kg/m2 Dr. Jayme Yang Work Phone: [facility] 10-02-2022 10:25-0500 Body weight 101.[address] Jayme Yang Work Phone: [facility] 09-06-2022 14:55-0500 Body height 170.[address] Jayme Yang Work Phone: [facility] Work Phone: 09-06-2022 14:55-0500 Body mass index (BMI) [Ratio] 33.6 kg/m2 Dr. Jayme Yang Work Phone: [facility] 09-06-2022 14:55-0500 Body weight 97.[address] Jayme Yang Work Phone: [facility] 09-06-2022 14:55-0500 Diastolic blood pressure 91 mm[Hg] Dr. Jayme Yang Work Phone: [facility] 09-06-2022 14:55-0500 Heart rate 65 /min Dr. Jayme Yang Work Phone: [facility] 09-06-2022 14:55-0500 Respiratory rate 18 /min Dr. Jayme Yang Work Phone: [facility] 09-06-2022 14:55-0500 SaO2% (BldA) [Mass fraction] 94 % Dr. Jayme Yang Work Phone: [facility] 09-06-2022 14:55-0500 Systolic blood pressure 171 mm[Hg] Dr. Jayme Yang Work Phone: [facility] 08-13-2022 10:46-0500 Body height 170.[address] Jayme Yang Work Phone: [facility] Work Phone: 08-13-2022 10:46-0500 Body mass index (BMI) [Ratio] 33.5 kg/m2 Dr. Jayme Yang Work Phone: [facility] 08-13-2022 10:46-0500 Body temperature 98.2 [degF] Dr. Jayme Yang Work Phone: [facility] 08-13-2022 10:46-0500 Body weight 97.[address] Jayme Yang Work Phone: [facility] 08-13-2022 10:46-0500 Diastolic blood pressure 86 mm[Hg] Dr. Jayme Yang Work Phone: [facility] 08-13-2022 10:46-0500 Heart rate 72 /min Dr. Jayme Yang Work Phone: [facility] 08-13-2022 10:46-0500 Respiratory rate 18 /min Dr. Jayme Yang Work Phone: [facility] 08-13-2022 10:46-0500 SaO2% (BldA) [Mass fraction] 96 % Dr. Jayme Yang Work Phone: [facility] 08-13-2022 10:46-0500 Systolic blood pressure 182 mm[Hg] Dr. Jayme Yang Work Phone: 7(658)914-149887 [place] [address] 06-21-2022 08:15-0400 Body height 170.[address] Jayme Yang Work Phone: [facility] Work Phone: 06-21-2022 08:15-0400 Body weight 92.[address] Jayme Yang Work Phone: [facility] 06-21-2022 08:15-0400 Heart rate 88 /min Dr. Jayme Yang Work Phone: [facility] 06-21-2022 08:15-0400 SaO2% (BldA) [Mass fraction] 93 % Dr. Jayme Yang Work Phone: [facility] 04-24-2022 13:32-0400 Body mass index (BMI) [Ratio] 30 kg/m2 Dr. Jayme Yang Work Phone: [facility] Work Phone: 04-24-2022 13:32-0400 Body weight 87.[address] Jayme Yang Work Phone: [facility] Work Phone: 04-24-2022 13:32-0400 Diastolic blood pressure 86 mm[Hg] Dr. Jayme Yang Work Phone: [facility] Work Phone: 04-24-2022 13:32-0400 Heart rate 82 /min Dr. Jayme Yang Work Phone: [facility] Work Phone: 04-24-2022 13:32-0400 Respiratory rate 18 /min Dr. Jayme Yang Work Phone: [facility] Work Phone: 04-24-2022 13:32-0400 SaO2% (BldA) [Mass fraction] 95 % Dr. Jayme Yang Work Phone: [facility] Work Phone: 04-24-2022 13:32-0400 Systolic blood pressure 163 mm[Hg] Dr. Jayme Yang Work Phone: [facility] Work Phone: 02-13-2022 11:30-0400 Diastolic blood pressure 90 mm[Hg] Dr. Jayme Yang Work Phone: [facility] Work Phone: 02-13-2022 11:30-0400 Systolic blood pressure 174 mm[Hg] Dr. Jayme Yang Work Phone: [facility] Work Phone: 02-13-2022 11:30-0400 Diastolic blood pressure 90 mm[Hg] Dr. Jayme Yang Work Phone: [facility] Work Phone: 02-13-2022 11:30-0400 Systolic blood pressure 174 mm[Hg] Dr. Jayme Yang Work Phone: [facility] Work Phone: 02-13-2022 10:50-0400 Body height 170.[address] Jayme Yang Work Phone: [facility] Work Phone: 02-13-2022 10:50-0400 Body mass index (BMI) [Ratio] 33 kg/m2 Dr. Jayme Yang Work Phone: [facility] Work Phone: 02-13-2022 10:50-0400 Body temperature 97.4 [degF] Dr. Jayme Yang Work Phone: [facility] Work Phone: 02-13-2022 10:50-0400 Body weight 95.[address] Jayme Yang Work Phone: [facility] Work Phone: 02-13-2022 10:50-0400 Heart rate 80 /min Dr. Jayme Yang Work Phone: [facility] Work Phone: 02-13-2022 10:50-0400 Respiratory rate 16 /min Dr. Jayme Yang Work Phone: [facility] Work Phone: 02-13-2022 10:50-0400 SaO2% (BldA) [Mass fraction] 91 % Dr. Jayme Yang Work Phone: [facility] Work Phone: 02-13-2022 10:50-0400 Body height 170.[address] Jayme Yang Work Phone: [facility] Work Phone: 02-13-2022 10:50-0400 Body mass index (BMI) [Ratio] 33 kg/m2 Dr. Jayme Yang Work Phone: [facility] Work Phone: 02-13-2022 10:50-0400 Body temperature 97.4 [degF] Dr. Jayme Yang Work Phone: [facility] Work Phone: 02-13-2022 10:50-0400 Body weight 95.[address] Jayme Yang Work Phone: [facility] Work Phone: 02-13-2022 10:50-0400 Heart rate 80 /min Dr. Jayme Yang Work Phone: [facility] Work Phone: 02-13-2022 10:50-0400 Respiratory rate 16 /min Dr. Jayme Yang Work Phone: [facility] Work Phone: 02-13-2022 10:50-0400 SaO2% (BldA) [Mass fraction] 91 % Dr. Jayme Yang Work Phone: [facility] Work Phone: 01-26-2022 09:58-0400 Body mass index (BMI) [Ratio] 33.5 kg/m2 Dr. Jayme Yang Work Phone: [facility] Work Phone: 01-26-2022 09:58-0400 Body weight 97.[address] Jayme Yang Work Phone: [facility] Work Phone: 01-26-2022 09:58-0400 Diastolic blood pressure 78 mm[Hg] Dr. Jayme Yang Work Phone: [facility] Work Phone: 01-26-2022 09:58-0400 Heart rate 69 /min Dr. Jayme Yang Work Phone: [facility] Work Phone: 01-26-2022 09:58-0400 Respiratory rate 18 /min Dr. Jayme Yang Work Phone: [facility] Work Phone: 01-26-2022 09:58-0400 Systolic blood pressure 143 mm[Hg] Dr. Jayme Yang Work Phone: [facility] Work Phone: 01-26-2022 09:58-0400 Body mass index (BMI) [Ratio] 33.5 kg/m2 Dr. Jayme Yang Work Phone: [facility] Work Phone: 01-26-2022 09:58-0400 Body weight 97.[address] Jayme Yang Work Phone: [facility] Work Phone: 01-26-2022 09:58-0400 Diastolic blood pressure 78 mm[Hg] Dr. Jayme Yang Work Phone: [facility] Work Phone: 01-26-2022 09:58-0400 Heart rate 69 /min Dr. Jayme Yang Work Phone: [facility] Work Phone: 01-26-2022 09:58-0400 Respiratory rate 18 /min Dr. Jayme Yang Work Phone: [facility] Work Phone: 01-26-2022 09:58-0400 Systolic blood pressure 143 mm[Hg] Dr. Jayme Yang Work Phone: [facility] Work Phone: 12-23-2021 09:38-0400 Heart rate 75 /min Dr. Jayme Yang Work Phone: [facility] Work Phone: 12-23-2021 09:28-0400 Body temperature 97.1 [degF] Dr. Jayme Yang Work Phone: [facility] Work Phone: 12-23-2021 09:28-0400 Diastolic blood pressure 93 mm[Hg] Dr. Jayme Yang Work Phone: [facility] Work Phone: 12-23-2021 09:28-0400 Respiratory rate 18 /min Dr. Jayme Yang Work Phone: [facility] Work Phone: 12-23-2021 09:28-0400 SaO2% (BldA) [Mass fraction] 98 % Dr. Jayme Yang Work Phone: [facility] Work Phone: 12-23-2021 09:28-0400 Systolic blood pressure 163 mm[Hg] Dr. Jayme Yang Work Phone: [facility] Work Phone: 12-23-2021 03:23-0400 Inhaled oxygen flow rate 2 L/min Dr. Jayme Yang Work Phone: [facility] Work Phone: 12-21-2021 15:35-0400 Body height 170.[address] Jayme Yang Work Phone: [facility] Work Phone: 12-21-2021 15:35-0400 Body mass index (BMI) [Ratio] 33 kg/m2 Dr. Jayme Yang Work Phone: [facility] Work Phone: 12-21-2021 15:35-0400 Body weight 95.[address] Jayme Yang Work Phone: [facility] Work Phone: 12-18-2021 09:33-0400 Body weight 101.[address] Jayme Yang Work Phone: [facility] Work Phone: 12-18-2021 08:53-0400 Body mass index (BMI) [Ratio] 37 kg/m2 Dr. Jayme Yang Work Phone: [facility] Work Phone: 12-13-2021 10:04-0400 Body mass index (BMI) [Ratio] 37 kg/m2 Dr. Jayme Yang Work Phone: [facility] Work Phone: 12-13-2021 10:04-0400 Body weight 101.[address] Jayme Yang Work Phone: [facility] Work Phone: 12-13-2021 10:04-0400 Diastolic blood pressure 80 mm[Hg] Dr. Jayme Yang Work Phone: [facility] Work Phone: 12-13-2021 10:04-0400 Heart rate 80 /min Dr. Jayme Yang Work Phone: [facility] Work Phone: 12-13-2021 10:04-0400 Respiratory rate 16 /min Dr. Jayme Yang Work Phone: [facility] Work Phone: 12-13-2021 10:04-0400 Systolic blood pressure 159 mm[Hg] Dr. Jayme Yang Work Phone: [facility] Work Phone: 12-13-2021 10:04-0400 Body mass index (BMI) [Ratio] 37 kg/m2 Dr. Jayme Yang Work Phone: [facility] Work Phone: 12-13-2021 10:04-0400 Body weight 101.[address] Jayme Yang Work Phone: [facility] Work Phone: 12-13-2021 10:04-0400 Diastolic blood pressure 80 mm[Hg] Dr. Jayme Yang Work Phone: [facility] Work Phone: 12-13-2021 10:04-0400 Heart rate 80 /min Dr. Jayme Yang Work Phone: [facility] Work Phone: 12-13-2021 10:04-0400 Respiratory rate 16 /min Dr. Jayme Yang Work Phone: [facility] Work Phone: 12-13-2021 10:04-0400 Systolic blood pressure 159 mm[Hg] Dr. Jayme Yang Work Phone: [facility] Work Phone: 11-06-2021 07:30-0500 Body mass index (BMI) [Ratio] 37.8 kg/m2 Dr. Jayme Yang Work Phone: [facility] Work Phone: 11-06-2021 07:30-0500 Body weight 103.[address] Jayme Yang Work Phone: [facility] Work Phone: 11-06-2021 07:30-0500 Diastolic blood pressure 92 mm[Hg] Dr. Jayme Yang Work Phone: [facility] Work Phone: 11-06-2021 07:30-0500 Heart rate 64 /min Dr. Jayme Yang Work Phone: [facility] Work Phone: 11-06-2021 07:30-0500 Respiratory rate 18 /min Dr. Jayme Yang Work Phone: [facility] Work Phone: 11-06-2021 07:30-0500 Systolic blood pressure 162 mm[Hg] Dr. Jayme Yang Work Phone: [facility] Work Phone: 10-13-2021 09:10-0500 Body mass index (BMI) [Ratio] 37.5 kg/m2 Dr. Jayme Yang Work Phone: [facility] Work Phone: 10-13-2021 09:10-0500 Body temperature 97.3 [degF] Dr. Jayme Yang Work Phone: [facility] Work Phone: 10-13-2021 09:10-0500 Body weight 102.[address] Jayme Yang Work Phone: [facility] Work Phone: 10-13-2021 09:10-0500 Diastolic blood pressure 82 mm[Hg] Dr. Jayme Yang Work Phone: [facility] Work Phone: 10-13-2021 09:10-0500 Heart rate 72 /min Dr. Jayme Yang Work Phone: [facility] Work Phone: 10-13-2021 09:10-0500 Respiratory rate 16 /min Dr. Jayme Yang Work Phone: [facility] Work Phone: 10-13-2021 09:10-0500 SaO2% (BldA) [Mass fraction] 94 % Dr. Jayme Yang Work Phone: [facility] Work Phone: 10-13-2021 09:10-0500 Systolic blood pressure 155 mm[Hg] Dr. Jayme Yang Work Phone: [facility] Work Phone: 09-26-2021 08:17-0500 Body mass index (BMI) [Ratio] 36.8 kg/m2 Dr. Jayme Yang Work Phone: [facility] Work Phone: 09-26-2021 08:17-0500 Body weight 100.[address] Jayme Yang Work Phone: [facility] Work Phone: 08-25-2021 08:36-0500 Body temperature 96.7 [degF] Dr. Jayme Yang Work Phone: [facility] Work Phone: 08-25-2021 08:36-0500 Body weight 102.[address] Jayme Yang Work Phone: [facility] Work Phone: 08-25-2021 08:36-0500 Diastolic blood pressure 82 mm[Hg] Dr. Jayme Yang Work Phone: [facility] Work Phone: 08-25-2021 08:36-0500 Heart rate 84 /min Dr. Jayme Yang Work Phone: [facility] Work Phone: 08-25-2021 08:36-0500 Respiratory rate 18 /min Dr. Jayme Yang Work Phone: [facility] Work Phone: 08-25-2021 08:36-0500 SaO2% (BldA) [Mass fraction] 94 % Dr. Jayme Yang Work Phone: [facility] Work Phone: 08-25-2021 08:36-0500 Systolic blood pressure 130 mm[Hg] Dr. Jayme Yang Work Phone: [facility] Work Phone: 03-22-2017 09:32-0400 BMI (Body Mass Index) 34.12 kg/m2 [facility] Castillo [facility] Work Phone: 03-22-2017 09:32-0400 BP Diastolic 88 mm[Hg] [facility] Work Phone: 03-22-2017 09:32-0400 BP Systolic 146 mm[Hg] [facility] Chong [facility] Work Phone: 03-22-2017 09:32-0400 Height 167.64 cm [facility] Work Phone: 03-22-2017 09:32-0400 Pulse (Heart Rate) 72 /min [facility] Chong [facility] Work Phone: 03-22-2017 09:32-0400 Respiratory Rate 20 /min [facility] Chong [facility] Work Phone: 03-22-2017 09:32-0400 Weight 95.89 kg Kaylene Chong [facility] Work Phone: 12-13-2016 14:06-0400 Heart rate 71 /min [facility] Work Phone: 12-13-2016 13:33-0400 BMI (Body Mass Index) 34.21 kg/m2 Yasmin Roland RN [facility] Work Phone: 12-13-2016 13:33-0400 BP Diastolic 78 mm[Hg] Yasmin Roland RN [facility] Work Phone: 12-13-2016 13:33-0400 BP Systolic 138 mm[Hg] Yasmin Roland RN [facility] Work Phone: 12-13-2016 13:33-0400 Height 167.64 cm Yasmin Roland RN [facility] Work Phone: 12-13-2016 13:33-0400 Pulse (Heart Rate) 80 /min Yasmin Roland RN [facility] Work Phone: 12-13-2016 13:33-0400 Respiratory Rate 16 /min Yasmin Roland RN [facility] Work Phone: 12-13-2016 13:33-0400 Weight 96.16 kg Yasmin Roland RN [facility] Work Phone: Encounters Encounter Date Encounter Type Care Provider Facility Start: 02-15-2025 End: 02-15-2025 Dr. Jayme Yang MD Work Phone: -Emergency Department Work Phone: Start: 02-15-2025 End: 02-15-2025 Emergency department patient visit Dr. Jayme Yang MD Work Phone: [facility] Work Phone: Start: 01-06-2025 End: 01-06-[address] Jayme Yang MD Work Phone: [facility] Work Phone: Start: 01-06-2025 End: 01-06-[address] [facility] Work Phone: Start: 01-06-2025 End: 01-06-2025 Dr. Juany Brice [facility] Work Phone: Start: 01-06-2025 End: 01-06-2025 ambulatory Juany Bellamy Facility:[facility] Start: 12-25-2024 End: 12-25-[address] Jayme Yang MD Work Phone: [facility] Work Phone: Start: 12-25-2024 End: 12-25-[address] Surinder Larson MD -Laboratory, [place] Work Phone: Start: 12-25-2024 End: 12-25-2024 Dr. Surinder Larson MD -Laboratory, [place] Work Phone: Start: 12-25-2024 End: 12-25-2024 ambulatory Surinder Larson Facility:[facility] Start: 12-10-2024 ambulatory Teja Jefferson [employer] Facility [facility] Start: 12-10-2024 Non-patient / Non-visit Dr. Isha oCrdero MD -[facility] Start: 12-10-2024 Dr. Clifford Cordero MD -[facility] Start: 12-10-2024 End: 12-10-[address] Jayme Yang MD Work Phone: [facility] Work Phone: Start: 12-10-2024 End: 12-10-2024 Patient encounter procedure Teja Jefferson SCOUT SN[employer]ER-C -Cardiovascular Services Work Phone: Start: 12-10-2024 End: 12-10-2024 Teja Jefferson [facility] SN[employer]ER-C -[facility] Work Phone: Start: 12-10-2024 End: 12-10-2024 ambulatory Teja Jefferson [employer] SN[employer] Facility:[facility] Start: 11-27-2024 End: 11-27-2024 Patient encounter procedure Teja Jefferson SC[employer] SN[employer]ER-C -[facility] Work Phone: Start: 11-27-2024 End: 11-27-2024 Teja Jefferson [employer] SN[employer]ER-C -[facility] Work Phone: Start: 11-27-2024 End: 11-27-2024 ambulatory Teja Jefferson [employer] SN[employer]ER Facility:[facility] Start: 11-17-2024 End: 11-17-2024 Patient encounter procedure Emerald Campos SCOUT SN[employer]ER-C -[facility] Work Phone: Start: 11-17-2024 End: 11-17-2024 Emerald Campos SC[employer] SN[employer]ER-C -[facility] Work Phone: Start: 11-17-2024 End: 11-17-2024 ambulatory Jayme Yang Facility:[facility] Start: 10-26-2024 End: 10-26-[address] Jayme Yang MD -Laboratory, [place] Work Phone: Start: 10-26-2024 End: 10-26-2024 Dr. Jayme Yang MD -Laboratory, [facility] Work Phone: Start: 10-26-2024 End: 10-26-2024 ambulatory Jayme Yang Facility:[facility] Start: 10-06-2024 End: 10-06-[address] Keo Montemayor DO [facility] Work Phone: Start: 10-06-2024 End: 10-06-2024 Dr. Keo Montemayor DO [facility] Work Phone: Start: 10-06-2024 End: 10-06-2024 ambulatory Keo Montemayor Facility:[facility] Start: 10-05-2024 End: 10-05-[address] Keo Brice, [facility] Work Phone: Start: 10-05-2024 End: 10-05-2024 Dr. Keo Brice, [facility] Work Phone: Start: 10-05-2024 End: 10-05-2024 ambulatory Keo Montemayor Facility:[facility] Start: 09-12-2024 End: 09-12-2024 Dr. Marycruz Yen MD -Laboratory Work Phone: Start: 09-12-2024 End: 09-12-2024 ambulatory [facility] Facility:[facility] Start: 08-06-2024 End: 08-06-2024 ambulatory Jayme Yang Facility:[facility] Start: 07-17-2024 End: 07-17-2024 ambulatory Juany Bellamy Facility:[facility] Start: 06-26-2024 End: 06-26-2024 ambulatory Jayme Yang Facility:[facility] Start: 06-25-2024 End: 06-25-2024 ambulatory Usha Lowry Facility:[facility] Start: 06-23-2024 End: 06-23-2024 ambulatory Jayme Yang Facility:[facility] Start: 05-27-2024 End: 05-27-2024 ambulatory Evin Weaver Facility:[facility] Start: 05-22-2024 End: 05-22-2024 ambulatory Jayme Yang Facility:[facility] Start: 05-06-2024 End: 05-06-2024 ambulatory Jayme Yang Facility:[facility] Start: 05-01-2024 End: 05-01-2024 ambulatory Jayme Yang Facility:[facility] Start: 04-24-2024 End: 04-24-2024 ambulatory Jayme Yang Facility:[facility] Start: 04-06-2024 End: 04-06-2024 ambulatory Keo Albina Facility:[facility] Start: 04-03-2024 End: 04-03-2024 ambulatory Keo Montemayor Facility:[facility] Start: 03-20-2024 End: 03-20-2024 ambulatory Jayme Yang Facility:[facility] Start: 03-13-2024 End: 03-13-2024 ambulatory Jayme Yang Facility:[facility] Start: 03-10-2024 End: 03-10-2024 ambulatory Jayme Yang Facility:[facility] Start: 01-10-2024 End: 01-10-[address] Jayme Yang Work Phone: [facility] Work Phone: Start: 01-10-2024 End: 01-10-2024 Dr. Jayme Yang Work Phone: [facility] Work Phone: Start: 12-11-2023 End: 12-11-[address] Jayme Yang Work Phone: [facility] Work Phone: Start: 12-11-2023 End: 12-11-2023 Dr. Jayme Yang Work Phone: [facility] Work Phone: Start: 11-21-2023 End: 11-21-2023 Dr. Jayme Yang Work Phone: [facility]-Pulmonary Medicine [facility] Work Phone: Start: 11-19-2023 End: 11-19-2023 Dr. Jayme Yang Work Phone: [facility] Work Phone: Start: 11-13-2023 Dr. Jayme Rollins en Work Phone: [facility] Work Phone: Start: 11-13-2023 Dr. Jayme Rollins en Work Phone: [facility] Start: 11-12-2023 End: 11-13-2023 Evaluation and management of inpatient Dr. Jayme Yang Work Phone: [facility] Work Phone: Start: 11-12-2023 End: 11-13-2023 Dr. Jayme Yang Work Phone: [facility]-Progressive Care Unit Work Phone: Start: 11-12-2023 Dr. Jayme Rollins en Work Phone: [facility] Work Phone: Start: 11-12-2023 Dr. Jayme Rollins en Work Phone: [facility] Start: 11-12-2023 Dr. Jayme Rollins en Work Phone: [facility] Start: 02-12-[address] Jayme Yang Work Phone: [facility] Work Phone: Start: 11-11-2023 End: 11-11-2023 Dr. Jayme Yang Work Phone: [facility]-Progressive Care Unit Work Phone: Start: 11-08-2023 Dr. Jayme Rollins en Work Phone: [facility]-Radiation Oncology Start: 10-18-2023 Dr. Jayme Rollins en Work Phone: [facility] Work Phone: Start: 10-16-2023 End: 10-16-[address] Jayme Yang Work Phone: [facility] Work Phone: Start: 10-16-2023 End: 10-16-2023 Dr. Jayme Yang Work Phone: [facility]-Laboratory Work Phone: Start: 10-16-2023 End: 10-16-2023 Dr. Jayme Yang Work Phone: [facility] Work Phone: Start: 10-09-2023 End: 10-09-2023 Dr. Jayme Yang Work Phone: [facility] Work Phone: Start: 10-02-2023 End: 10-02-2023 Dr. Jayme Yang Work Phone: [facility] Work Phone: Start: 09-25-2023 End: 09-25-2023 Dr. Jayme Yang Work Phone: [facility] Work Phone: Start: 09-24-2023 Dr. Jayme Rollins en Work Phone: [facility]-Radiation Oncology Start: 09-23-2023 Dr. Jayme Rollins en Work Phone: [facility] Work Phone: Start: 09-22-2023 End: 09-24-2023 Evaluation and management of inpatient Dr. Jayme Yang Work Phone: [facility] Work Phone: Start: 09-22-2023 End: 09-24-2023 Dr. [facility] Work Phone: Start: 09-22-2023 Dr. Jayme bowie Work Phone: [facility] Work Phone: Start: 09-21-2023 Dr. Jayme Rollins en Work Phone: [facility] Work Phone: Start: 09-20-2023 Dr. Jayme bowie Work Phone: [facility] Work Phone: Start: 09-20-[address] Jayme Yang Work Phone: [facility] Work Phone: Start: 09-20-[address] Jayme Yang Work Phone: [facility]-Radiation Oncology Start: 09-20-2023 Dr. Jay[facility] bowie [facility]: Start: 09-18-2023 End: 09-18-[address] Jayme Yang Work Phone: [facility] Work Phone: Start: 09-18-2023 End: 09-18-2023 Dr. Jayme Yang Work Phone: [facility] Work Phone: Start: 09-16-2023 End: 09-16-[address] Jayme Yang Work Phone: [facility] Work Phone: Start: 09-16-2023 End: 09-16-[address] Jayme Yang Work Phone: [facility]-Laboratory Work Phone: Start: 09-16-2023 End: 09-16-2023 Dr. [facility] Start: 09-11-2023 End: 09-11-[address] Jayme Yang Work Phone: [facility] Work Phone: Start: 09-11-2023 End: 09-11-2023 Dr. Jayme Yang Work Phone: [facility] Work Phone: Start: 09-05-2023 Non-patient / Non-visit Dr. Adry Yang Work Phone: [facility] Work Phone: Start: 09-05-2023 Dr. Jayme bowie Work Phone: [facility] Work Phone: Start: 09-04-2023 End: 09-05-2023 Evaluation and management of inpatient Dr. Jayme Yang Work Phone: [facility]-Intensive Care Unit Work Phone: Start: 09-04-2023 End: 09-05-2023 Dr. Jayme Yang Work Phone: [facility]-Intensive Care Unit Work Phone: Start: 08-29-2023 Non-patient / Non-visit Dr. Adry Yang Work Phone: [facility] Start: 08-29-2023 Dr. Jayme bowie Work Phone: [facility] Start: 08-29-[address] Jayme Yang Work Phone: [facility]-Radiation Oncology Start: 08-29-2023 End: 08-29-[address] Jayme Yang Work Phone: [facility] Work Phone: Start: 08-29-2023 End: 08-29-[address] Jayme Yang Work Phone: [facility] Work Phone: Start: 08-29-2023 End: 08-29-2023 Dr. Jayme Yang Work Phone: [facility] Work Phone: Start: 08-13-2023 End: 08-13-[address] Jayme Yang Work Phone: [facility]-Pulmonary Medicine [facility] Work Phone: Start: 08-13-2023 End: 08-13-2023 Dr. Jayme Yang Work Phone: [facility] Work Phone: Start: 08-07-2023 End: 08-07-2023 Admission to same day surgery center Dr. Jayme Yang Work Phone: [facility]-Surgical Day Care Start: 08-07-2023 End: 08-07-[address] Jayme Yang Work Phone: [facility] Work Phone: Start: 08-07-2023 End: 08-07-2023 Dr. Jayme Yang Work Phone: [facility] Day [facility] Start: 07-02-2023 End: 07-02-[address] Jayme Yang Work Phone: [facility] Work Phone: Start: 07-02-2023 End: 07-02-2023 Dr. Jayme Yang Work Phone: [facility] Work Phone: Start: 06-04-2023 End: 06-04-[address] Jayme Yang Work Phone: [facility] Work Phone: Start: 06-04-2023 End: 06-04-[address] Jayme Yang Work Phone: [facility] Work Phone: Start: 06-04-2023 End: 06-04-2023 Dr. Jayme Yang Work Phone: [facility] Work Phone: Start: 05-30-2023 End: 05-30-[address] Jayme Yang Work Phone: [facility] Work Phone: Start: 05-30-2023 End: 05-30-[address] Jayme Yang Work Phone: [facility] Work Phone: Start: 05-30-2023 End: 05-30-2023 Dr. Jayme Yang Work Phone: [facility] Work Phone: Start: 05-24-2023 End: 05-24-[address] Jayme Yang Work Phone: [facility] Work Phone: Start: 05-24-2023 End: 05-24-2023 Dr. Jayme Yang Work Phone: [facility] Work Phone: Start: 05-21-2023 End: 05-21-[address] [facility] Work Phone: Start: 05-13-2023 End: 05-13-[address] Jayme Yang Work Phone: [facility] Work Phone: Start: 05-13-2023 End: 05-13-[address] [facility] Work [facility] Start: 04-16-2023 End: 04-16-[address] Jayme Yang Work Phone: [facility] Work Phone: Start: 04-16-2023 End: 04-16-[address] [facility] Start: 04-04-2023 End: 04-04-[address] [facility] Work [facility]: Start: 04-01-2023 End: 04-01-[address] Jayme Yang Work Phone: [facility] Work Phone: Start: 04-01-2023 End: 04-01-[address] Jayme Yang Work Phone: [facility] [place] Work Phone: Start: 03-26-2023 Non-patient / Non-visit Dr. Adry Yang Work Phone: [facility] Start: 03-25-2023 Non-patient / Non-visit Dr. Adry Yang Work Phone: [facility] Start: 03-24-2023 Non-patient / Non-visit Dr. Adry Yang Work Phone: [facility] Start: 03-23-2023 Non-patient / Non-visit Dr. Adry Yang Work Phone: [facility] Start: 03-22-2023 Non-patient / Non-visit Dr. Adry Yang Work Phone: [facility] Start: 03-21-2023 End: 03-26-2023 Evaluation and management of inpatient Dr. Jayme Yang Work Phone: [facility]-Medical Surgical 3 Start: 03-21-2023 Non-patient / Non-visit Dr. Adry Yang Work Phone: [facility] Start: 02-28-2023 End: 02-28-[address] Jayme Yang Work Phone: [facility] Work Phone: Start: 02-28-2023 End: 02-28-[address] [facility] Start: 02-07-2023 End: 02-07-[address] Jayme Yang Work Phone: [facility]-Pulmonary Medicine [facility] Start: 01-03-2023 End: 01-03-[address] Jay[facility] Start: 12-20-2022 End: 12-20-[address] Jayme Yang Work Phone: [facility] Work Phone: Start: 12-20-2022 End: 12-20-[address] Jayme Yang Work Phone: [facility] Start: 12-20-2022 End: 12-20-2022 Dr. Jayme Yang Work Phone: [facility] Start: 11-09-2022 End: 11-09-[address] Jayme Yang Work Phone: [facility] Work Phone: Start: 11-09-2022 End: 11-09-[address] Jayme Yang Work Phone: [facility] Start: 11-09-2022 End: 11-09-2022 Dr. Jayme Yang Work Phone: [facility] Start: 11-08-2022 End: 11-08-[address] Jayme Yang Work Phone: [facility] Work Phone: Start: 11-08-2022 End: 11-08-[address] Jayme Yang Work Phone: [facility] Start: 11-08-2022 End: 11-08-2022 Dr. Jayme Yang Work Phone: [facility] Start: 10-22-2022 End: 10-22-2022 Dr. Jayme Yang Work Phone: [facility] Start: 10-05-2022 Non-patient / Non-visit Dr. Adry Yang Work Phone: [facility] Start: 10-05-2022 Dr. Jayme bowie Work Phone: [facility] Start: 10-04-2022 Non-patient / Non-visit Dr. Adry Yang Work Phone: [facility] Start: 10-04-2022 End: 10-05-2022 Evaluation and management of inpatient Dr. Jayme Yang Work Phone: [facility] Surgical 3 Start: 10-04-2022 End: 10-05-[address] Jayme Yang Work Phone: [facility] Work Phone: Start: 10-04-2022 End: 10-05-2022 Dr. Jayme Yang Work Phone: [facility] Surgical 3 Start: 10-02-2022 End: 10-02-2022 Emergency department patient visit Dr. Jayme Yang Work Phone: [facility]-Emergency Department Start: 10-02-2022 End: 10-02-2022 Dr. [facility] Start: 10-02-2022 End: 10-02-[address] Jayme Yang Work Phone: [facility] Work Phone: Start: 10-02-2022 End: 10-02-[address] Jayme Yang Work Phone: [facility] Start: 10-02-2022 End: 10-02-2022 Dr. Jayme Yang Work Phone: [facility] Start: 09-06-2022 End: 09-06-[address] Jayme Yang Work Phone: [facility] Work Phone: Start: 09-06-2022 End: 09-06-[address] Jayme Yang Work Phone: [facility] Start: 09-06-2022 End: 09-06-2022 Dr. Jayme Yang Work Phone: [facility] Start: 09-06-2022 End: 09-06-[address] Jayme Yang Work Phone: [facility] Start: 09-06-2022 End: 09-06-2022 Dr. Jayme Yang Work Phone: [facility] Start: 08-13-2022 End: 08-13-[address] Jayme Yang Work Phone: [facility] Start: 08-13-2022 End: 08-13-2022 Dr. Jayme Yang Work Phone: [facility] Start: 08-08-2022 End: 08-08-[address] Jayme Yang Work Phone: [facility] Work Phone: Start: 08-08-2022 End: 08-08-[address] Jayme Yang Work Phone: [facility] Start: 08-08-2022 End: 08-08-2022 Dr. Jayme Yang Work Phone: [facility] Start: 07-17-2022 End: 07-17-[address] Jayme Yang Work Phone: [facility] Work Phone: Start: 07-17-2022 End: 07-17-[address] Jayme Yang Work Phone: [facility]-Laboratory Start: 06-22-2022 Non-patient / Non-visit Dr. Adry Yang Work Phone: [facility] Start: 06-21-2022 End: 06-21-[address] Jayme Yang Work Phone: [facility] Work Phone: Start: 06-21-2022 End: 06-21-[address] Jayme Yang Work Phone: [facility]-Pulmonary Services/Neurology Start: 04-24-2022 End: 04-24-[address] Jayme Yang Work Phone: [facility] Start: 04-12-2022 End: 04-12-[address] Jayme Yang Work Phone: [facility] Start: 03-28-2022 End: 03-28-[address] Jayme Yang Work Phone: [facility] Start: 02-13-2022 End: 02-13-[address] Jay[facility] Start: 01-26-2022 End: 01-26-[address] Jayme Yang Work Phone: [facility] Start: 01-11-2022 End: 01-11-[address] Jayme Yang Work Phone: [facility] Start: 01-09-2022 End: 01-09-[address] Jayme Yang Work Phone: [facility]-Pre-Admission Testing Start: 12-23-2021 Non-patient / Non-visit Dr. Adry Yang Work Phone: [facility] Start: 12-22-2021 Non-patient / Non-visit Dr. Adry Yang Work Phone: [facility] Start: 12-22-2021 Non-patient / Non-visit Dr. Adry Yang Work Phone: [facility] Start: 12-21-2021 Non-patient / Non-visit Dr. Adry Yang Work Phone: [facility] Start: 12-21-2021 End: 12-23-2021 Evaluation and management of inpatient Dr. Jayme Yang Work Phone: [facility]-Progressive Care Unit Start: 12-13-2021 End: 12-13-[address] Jayme Yang Work Phone: [facility] Start: 11-22-2021 Non-patient / Non-visit Dr. Adry Yang Work Phone: [facility] Start: 11-22-2021 End: 11-22-[address] Jayme [facility] Start: 11-07-2021 Non-patient / Non-visit Dr. Adry Yang Work Phone: [facility] Start: 11-06-2021 End: 11-06-[address] Jayme Yang Work Phone: [facility] Start: 10-17-2021 End: 10-17-[address] Jayme Yang Work Phone: [facility] Start: 10-16-2021 End: 10-16-[address] Jayme Yang Work Phone: [facility]-Laboratory, Specimen Start: 10-13-2021 End: 10-13-[address] Jayme Yang Work Phone: [facility]-Medical Out Start: 10-05-2021 End: 10-05-[address] Jay[facility] Start: 10-05-2021 Non-patient / Non-visit Dr. Adry Yang Work Phone: [facility] Start: 10-05-2021 End: 10-05-[address] Jayme Yang Work Phone[facility] Start: 10-04-2021 Non-patient / Non-visit Dr. Adry Yang Work Phone: [facility] Start: 10-04-2021 End: 10-04-[address] Jayme Yang Work Phone: [facility]-Pulmonary Services/Neurology Start: 09-26-2021 End: 09-26-[address] Jayme Yang Work Phone: [facility]-Laboratory Start: 08-25-[address] Jayme Yang Work Phone: [facility]-Medical Out Procedures Date Procedure Procedure Detail Performing Clinician Start: 02-15-2025 X-ray of chest, PA a nd lateral views Dr. Jayme Yang MD Work Phone: Start: 02-15-2025 Blood count smear mc rscp w/mnl difrntl wbc count Dr. Jayme Yang MD Work Phone: Start: 02-15-[address] Jayme Yang MD Work Phone: Start: 02-15-2025 Mean corpuscular hem oglobin concentration determination Dr. Jayme Yang MD Work Phone: Start: 02-15-2025 Nucleated red blood cell count procedure Dr. Jayme Yang MD Work Phone: Start: 02-15-2025 Platelet mean volume determination Dr. Jayme Yang MD Work Phone: Start: 02-15-2025 Dr. Jayme becerra MD Work Phone: Start: 01-06-2025 Mean corpuscular hem oglobin concentration determination Dr. Jayme Yang MD Work Phone: Start: 01-06-[address] Jayme Yang MD Work Phone: Start: 01-06-2025 Platelet mean volume determination Dr. Jayme Yang MD Work Phone: Start: 01-06-2025 Serum inorganic phos phate measurement Dr. Jayme Yang MD Work Phone: Start: 12-25-2024 Assay of prostate sp ecific antigen total Dr. Jayme Yang MD Work Phone: Start: 12-10-2024 Cardiovascular stres s test using pharmacologic stress agent Dr. Jayme Yang MD Work Phone: Start: 10-26-2024 Blood count smear mc rscp w/mnl difrntl wbc count Dr. Jayme Yang MD Work Phone: Start: 10-26-2024 Mean corpuscular hem oglobin concentration determination Dr. Jayme Yang MD Work Phone: Start: 10-26-2024 Nucleated red blood cell count procedure Dr. Jayme Yang MD Work Phone: Start: 10-26-2024 Platelet mean volume determination Dr. Jayme Yang MD Work Phone: Start: 10-26-2024 X-ray of chest, PA a nd lateral views Dr. Jayme Yang MD Work Phone: Start: 11-11-2023 Plain chest X-ray Dr. Amelie Yang Work Phone: Start: 11-11-2023 Dr. Jayme becerra Work Phone: Start: 09-21-2023 Plain chest X-ray Dr. Amelie Yang Work Phone: Start: 09-20-2023 Investigation of transfusion reaction Dr. Jayme Yang Work Phone: Start: 09-20-2023 Legionella pneumophi la antigen assay Dr. Jayme Yang Work Phone: Start: 09-20-2023 Res[address] microbia l culture Dr. Jayme Yang Work Phone: Start: 09-20-2023 Respiratory syncytia l virus antigen assay Dr. Jayme Yang Work Phone: Start: 09-20-2023 Dr. Jayme becerra Work Phone: Start: 09-20-2023 Plain chest X-ray Dr. Amelie Yang Work Phone: Start: 09-03-2023 Plain chest X-ray Dr. Amelie Yang Work Phone: Start: 09-03-2023 SARS-CoV-2 & FLU Ant igen (Rapid) Dr. Jayme Yang Work Phone: Start: 09-03-[address] Jayme Yang Work Phone: Start: 09-03-2023 Dr. Jayme becerra Work Phone: Start: 08-29-2023 MRI of pelvis with contrast Dr. Jayme Yang Work Phone: Start: 08-07-2023 Space OAR (Not Applicable) Dr. Jayme Yang Work Phone: Start: 06-04-2023 Radionuclide whole b elaina bone study Dr. Jayme Yang Work Phone: Start: 05-30-2023 Computed tomography of abdomen and pelvis with intravenous contrast Dr. Jayme Yang Work Phone: Start: 03-21-2023 Plain chest X-ray Dr. Amelie Yang Work Phone: Start: 03-21-2023 Plain chest X-ray Dr. Amelie Yang Work Phone: Start: 03-21-2023 Investigation of transfusion reaction Dr. Jayme Yang Work Phone: Start: 03-21-[address] Jayme Yang Work Phone: Start: 03-21-20[address]bia l culture Dr. Jayme Yang Work Phone: Start: 03-21-2023 Streptococcus pneumo niae Antigen (M Dr. Jayme Yang Work Phone: Start: 02-28-2023 Plain x-ray of elbow Dr Ilene Yang Work Phone: Start: 02-28-2023 Plain x-ray of wrist Dr Ilene Yang Work Phone: Start: 10-04-2022 MRI of lower extremity Dr. Jayme Yang Work Phone: Start: 10-04-2022 Plain x-ray of hand Dr. Jayme Yang Work Phone: Start: 10-04-2022 X-ray of both feet Dr. Jayme Yang Work Phone: Start: 10-02-2022 Radiologic examinati on of knee Dr. Jayme Yang Work Phone: Start: 09-06-2022 Plain chest X-ray Dr. Amelie Yang Work Phone: Start: 12-22-2021 MRI of brain without contrast Dr. Jayme Yang Work Phone: Start: 12-21-2021 Plain X-ray of shoulder Dr. Jayme Yang Work Phone: Start: 12-21-2021 Plain chest X-ray Dr. Amelie Yang Work Phone: Start: 12-21-2021 CT of head without contrast Dr. Jayme Yang Work Phone: Start: 12-13-2021 Plain chest X-ray Dr. Amelie Yang Work Phone: Start: 11-22-2021 Nuclear Stress Test - Chemical Dr. Jayme Yagn Work Phone: Start: 10-17-2021 CT angiography of he ad and neck Dr. Jayme Yang Work Phone: Start: 02-22-2020 Antibody screen Comment on above: Performed By: #### T &S #### [place] [id number] Start: 03-22-2017 End: 03-22-2017 Dietary management education, guidance, and counseling Kaylene Chong Start: 03-22-2017 End: 03-22-2017 Follow Up Appt 6 months Teja Jefferson NP Work Phone: Start: 03-22-2017 End: 03-22-2017 PFM Teja Jefferson [employer] Work Phone: Start: 12-13-2016 End: 12-13-2016 Dietary management education, guidance, and counseling Natalee Hernandez Start: 12-13-2016 End: 02-07-2017 *BMP Jayme Lino MD Start: 12-13-2016 End: 02-07-2017 CBC W Auto Differential panel - Blood Jayme Lino MD Start: 12-13-2016 End: 12-13-2016 Electrocardiogram, complete Jayme moore MD Start: 12-13-2016 End: 12-13-2016 Follow Up Appt 3 months Jayme Lino MD Start: 12-13-2016 End: 12-13-2016 MMM Jayme Lino MD Start: 12-13-2016 End: 03-01-2017 Remote 30 day ecg rev/report Jayme Lino MD Start: 12-13-2016 End: 02-07-2017 Tilt table evaluation Jayme Meza Anaerobic microbial culture Dr. Jayme Yang Work Phone: Bacterial culture Dr. Jayme becerra Work Phone: Investigation of transfusion reaction Dr. Jayme Yang Work Phone: Investigation of transfusion reaction Dr. Jayme Yang Work Phone: Investigation of transfusion reaction Dr. Jayme Yang Work Phone: Nucleic acid assay Dr. Jayme Yang Work Phone: Plan of Treatment Date Care Activity Detail Author Start: 02-15-2025 [facility] Start: 02-15-2025 [facility] Start: 11-13-2023 Patient discharge [facility] Start: 11-12-2023 Oxygen therapy [facility] Start: 11-12-2023 Admission procedure [facility] Start: 11-12-2023 Admission procedure [facility] Start: 11-12-2023 Referral to rn flight [facility] Start: 11-12-2023 Continuous positive airway pressure ventilation treatment [facility] Start: 11-12-2023 Inhalation therapy procedure [facility] Start: 11-11-2023 Following clinical pathway protocol [facility] Start: 11-11-2023 Notification of physician [facility] Start: 11-11-2023 [facility] Start: 11-11-2023 Admission procedure [facility] Start: 11-11-2023 Troponin I measurement [facility] Start: 11-11-2023 Hospital admission, emergency, from emergency room, medical nature [facility] Start: 11-11-2023 [facility] Start: 09-24-2023 Patient discharge [facility] Start: 09-22-2023 Admission procedure [facility] Start: 09-20-2023 Oxygen therapy [facility] Start: 09-20-2023 Continuous positive airway pressure ventilation treatment [facility] Start: 09-20-2023 Assessment of risk of venous thromboembolism [facility] Start: 09-20-2023 Care regimes management [facility] Start: 09-20-2023 Catheterization of vein [facility] Start: 09-20-2023 Insertion of catheter into peripheral vein [facility] Start: 09-20-2023 Notification of physician [facility] Start: 09-20-2023 Providing care according to standard [facility] Start: 09-20-2023 Provision of activity privileges [facility] Start: 09-20-2023 Referral to occupational therapist [facility] Start: 09-20-2023 Referral to service [facility] Start: 09-20-2023 [facility] Start: 09-20-2023 Following clinical pathway protocol [facility] Start: 09-20-2023 Respiratory pathogens DNA and RNA panel - Respiratory specimen by [facility] with probe detection [facility] Start: 09-20-2023 Verification routine [facility] Start: 09-20-2023 Admission procedure [facility] Start: 09-20-2023 Hospital admission, emergency, from emergency room, medical nature [facility] Start: 09-20-2023 Respiratory microbial culture [facility] Start: 09-20-2023 Inhalation therapy procedure [facility] Start: 09-07-2023 Blood chemistry [facility] Start: 09-06-2023 Blood chemistry [facility] Start: 09-05-2023 Patient discharge [facility] Start: 09-05-2023 Blood chemistry [facility] Start: 09-05-2023 [facility] Start: 09-04-2023 Verification routine [facility] Start: 09-04-2023 Care regimes management [facility] Start: 09-04-2023 Notification of physician [facility] Start: 09-04-2023 End: 09-04-2023 [facility] Start: 09-04-2023 Following clinical pathway protocol [facility] Start: 09-04-2023 Admission procedure [facility] Start: 09-04-2023 Inhalation therapy procedure [facility] Start: 09-04-2023 [facility] Start: 08-07-2023 Anes integ extremities ant trunk & perineum nos [facility] Start: 08-07-2023 Plmt interstitial dev radiat tx prostate 1/mult [facility] Start: 08-07-2023 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 plmt biodegradable matrl 1/ironworker njx [facility] Start: 08-07-2023 Patient discharge [facility] Start: 08-07-2023 Ambulation without limitation [facility] Start: 08-07-2023 Medical regimen orders management [facility] Start: 08-07-2023 Medication education [facility] Start: 08-07-2023 [facility] Start: 04-04-2023 Patient referral [facility] Work Phone: Start: 03-26-2023 Patient discharge [facility] Start: 03-23-2023 Care planning and problem solving actions [facility] Start: 03-23-2023 Physiotherapy of chest [facility] Start: 03-22-2023 Care regimes management [facility] Start: 03-22-2023 Notification of physician [facility] Start: 03-22-2023 [facility] Start: 03-22-2023 Following clinical pathway protocol [facility] Start: 03-21-2023 Following clinical pathway protocol [facility] Start: 03-21-2023 Assessment of risk of venous thromboembolism [facility] Start: 03-21-2023 Elevation of head of bed [facility] Start: 03-21-2023 Inhalation therapy procedure [facility] Start: 03-21-2023 Insertion of catheter into peripheral vein [facility] Start: 03-21-2023 Methicillin resistant Staphylococcus aureus screening test [facility] Start: 03-21-2023 Oxygen therapy [facility] Start: 03-21-2023 Patient education [facility] Start: 03-21-2023 Providing care according to standard [facility] Start: 03-21-2023 Provision of activity privileges [facility] Start: 03-21-2023 Referral to service [facility] Start: 03-21-2023 [facility] Start: 03-21-2023 [facility] Start: 03-21-2023 Admission procedure [facility] Start: 03-21-2023 Respiratory microbial culture Respiratory Culture [facility] Start: 10-05-2022 Patient discharge [facility] Start: 10-05-2022 Blood chemistry [facility] Work Phone: Start: 10-05-2022 [facility] Work Phone: Start: 10-04-2022 Assessment of risk of venous thromboembolism [facility] Start: 10-04-2022 Care regimes management [facility] Start: 10-04-2022 Catheterization of vein [facility] Start: 10-04-2022 Incentive spirometry [facility] Start: 10-04-2022 Insertion of catheter into peripheral vein [facility] Start: 10-04-2022 Oxygen therapy [facility] Work Phone: Start: 10-04-2022 Providing care according to standard [facility] Start: 10-04-2022 Referral to occupational therapist [facility] Start: 10-04-2022 Referral to service [facility] Start: 10-04-2022 [facility] Start: 10-04-2022 Oxygen therapy [facility] Start: 10-04-2022 Following clinical pathway protocol [facility] Start: 10-04-2022 Continuous positive airway pressure ventilation treatment [facility] Work Phone: Start: 10-04-2022 Verification routine [facility] Work Phone: Start: 10-04-2022 Admission procedure [facility] Start: 10-04-2022 Patient referral to dietitian [facility] Start: 10-02-2022 Arthrocentesis aspir&/inj major jt/bursa w/o us [facility] Start: 10-02-2022 Following clinical pathway protocol [facility] Start: 10-02-2022 [facility] Start: 12-23-2021 Patient discharge [facility] Work Phone: Start: 12-22-2021 End: 12-22-2021 Notification of physician [facility] Work Phone: Start: 12-22-2021 End: 12-22-2021 Patient education [facility] Work Phone: Start: 12-22-2021 End: 12-22-2021 Pulse taking [facility] Work Phone: Start: 12-22-2021 End: 12-22-2021 Taking patient vital signs [facility] Work Phone: Start: 12-22-2021 End: 12-22-2021 Wound care [facility] Work Phone: Start: 12-22-2021 End: 12-22-2021 [facility] Work Phone: Start: 12-21-2021 Referral to rn flight [facility] Work Phone: Start: 12-21-2021 Assessment of risk of venous thromboembolism [facility] Work Phone: Start: 12-21-2021 Insertion of catheter into peripheral vein [facility] Work Phone: Start: 12-21-2021 Measuring intake and output [facility] Work Phone: Start: 12-21-2021 Oxygen therapy [facility] Work Phone: Start: 12-21-2021 Providing care according to standard [facility] Work Phone: Start: 12-21-2021 Provision of activity privileges [facility] Work Phone: Start: 12-21-2021 Referral to occupational therapist [facility] Work Phone: Start: 12-21-2021 Referral to service [facility] Work Phone: Start: 12-21-2021 [facility] Work Phone: Start: 12-21-2021 Following clinical pathway protocol [facility] Work Phone: Start: 12-21-2021 Admission procedure [facility] Work Phone: Start: 10-13-2021 Chemotherapy admn iv infusion tq ea hr CHEMO IV INFUSION ADDL HR [facility] Work Phone: Start: 10-13-2021 Chemotx admn iv nfs tq up 1 hr 09/30 sbst/drug CHEMO IV INFUSION 1 HR [facility] Work Phone: Start: 11-04-2017 End: 11-04-2017 Appointment [facility] Work Phone: Start: 03-22-2017 End: 03-22-2017 Appointment Appointment [facility] Work Phone: Start: 03-22-2017 End: 03-22-2017 Appointment Appointment [facility] Work Phone: Start: 03-22-2017 End: 03-22-2017 Follow Up Appt 6 months Follow Up Appt 6 months [facility] Work Phone: Start: 03-22-2017 End: 03-22-2017 PFM PFM [facility] Work Phone: Start: 12-13-2016 End: 02-07-2017 *BMP *BMP [facility] Work Phone: Start: 12-13-2016 End: 02-07-2017 CBC W Auto Differential panel - Blood *CBC without Diff [facility] Work Phone: Start: 12-13-2016 End: 12-13-2016 Electrocardiogram, complete EKG (In office) [facility] Work Phone: Start: 12-13-2016 End: 12-13-2016 Follow Up Appt 3 months Follow Up Appt 3 months [facility] Work Phone: Start: 12-13-2016 End: 12-13-2016 MMM MMM [facility] Work Phone: Start: 12-13-2016 End: 12-13-2016 Remote 30 day ecg rev/report 30 Day Holter Monitor [facility] Work Phone: Start: 12-13-2016 End: 12-13-2016 Tilt table evaluation Tilt Table Test [facility] Work Phone: Anaerobic Culture Anaerobic Culture [facility] Work Phone: Anaerobic microbial culture Anaerobic Cul ture [facility] Work Phone: Anion gap measurement [facility] Work Phone: Anion gap measurement [facility] Anion gap measurement [facility] Anion gap measurement [facility] Bacteria identified in Body fluid by Culture [facility] Work Phone: Bacteria identified in Unspecified specimen by Anaerobe culture [facility] Work Phone: Bacterial culture Body Fluid Culture [facility] Work Phone: Body Fluid Culture Body Fluid Culture [facility] Work Phone: BUN/Creatinine ratio [facility] Work Phone: BUN/Creatinine ratio [facility] BUN/Creatinine ratio [facility] BUN/Creatinine ratio [facility] Calcium [Mass/volume ] in Serum or Plasma [facility] Work Phone: Calcium [Mass/volume ] in Serum or Plasma [facility] Calcium [Mass/volume ] in Serum or Plasma [facility] Calcium [Mass/volume ] in Serum or Plasma [facility] Carbon dioxide, tota l [Moles/volume] in Serum or Plasma [facility] Work Phone: Carbon dioxide, tota l [Moles/volume] in Serum or Plasma [facility] Carbon dioxide, tota l [Moles/volume] in Serum or Plasma [facility] Carbon dioxide, tota l [Moles/volume] in Serum or Plasma [facility] Chloride [Moles/volu me] in Serum or Plasma [facility] Work Phone: Chloride [Moles/volu me] in Serum or Plasma [facility] Chloride [Moles/volu me] in Serum or Plasma [facility] Chloride [Moles/volu me] in Serum or Plasma [facility] Creatinine [Moles/vo lume] in Serum or Plasma [facility] Work Phone: Creatinine [Moles/vo lume] in Serum or Plasma [facility] Creatinine [Moles/vo lume] in Serum or Plasma [facility] Creatinine [Moles/vo lume] in Serum or Plasma [facility] Glucose [Mass/volume ] in Serum or Plasma [facility] Work Phone: Glucose [Mass/volume ] in Serum or Plasma [facility] Glucose [Mass/volume ] in Serum or Plasma [facility] Glucose [Mass/volume ] in Serum or Plasma [facility] Hematocrit [Volume Fraction] of Blood [facility] Work Phone: Hematocrit [Volume Fraction] of Blood [facility] Hematocrit [Volume Fraction] of Blood [facility] Hematocrit [Volume Fraction] of Blood [facility] Hemoglobin [Mass/vol ume] in Blood [facility] Work Phone: Hemoglobin [Mass/vol ume] in Blood [facility] Hemoglobin [Mass/vol ume] in Blood [facility] Hemoglobin [Mass/vol ume] in Blood [facility] Hemoglobin A1c/Hemoglobin.total in Blood [facility] Investigation of transfusion reaction Gram Stain [facility] Work Phone: Leukocytes [#/volume ] in Blood [facility] Work Phone: Leukocytes [#/volume ] in Blood [facility] Leukocytes [#/volume ] in Blood [facility] Leukocytes [#/volume ] in Blood [facility] Magnesium [Mass/volu me] in Serum or Plasma [facility] Work Phone: Magnesium [Mass/volu me] in Serum or Plasma [facility] Mean corpuscular hem oglobin concentration determination [facility] Work Phone: Mean corpuscular hem oglobin concentration determination [facility] Mean corpuscular hem oglobin concentration determination [facility] Mean corpuscular hem oglobin concentration determination [facility] Mean corpuscular hem oglobin determination [facility] Work Phone: Mean corpuscular hem oglobin determination [facility] Mean corpuscular hem oglobin determination [facility] Mean corpuscular hem oglobin determination [facility] Measurement of renal function [facility] Work Phone: Measurement of renal function [facility] Measurement of renal function [facility] Measurement of renal function [facility] Neutrophil count [facility] Work Phone: Neutrophil count [facility] Neutrophil count [facility] Neutrophil count [facility] Neutrophil percent differential count [facility] Work Phone: Neutrophil percent differential count [facility] Neutrophil percent differential count [facility] Neutrophil percent differential count [facility] Patient Education [facility] Work Phone: Patient referral [facility] Work Phone: Platelets [#/volume] in Blood [facility] Work Phone: Platelets [#/volume] in Blood [facility] Platelets [#/volume] in Blood [facility] Platelets [#/volume] in Blood [facility] Potassium [Moles/vol ume] in Serum or Plasma [facility] Work Phone: Potassium [Moles/vol ume] in Serum or Plasma [facility] Potassium [Moles/vol ume] in Serum or Plasma [facility] Potassium [Moles/vol ume] in Serum or Plasma [facility] Prostate specific an tigen measurement [facility] Red blood cell count [facility] Work Phone: Red blood cell count [facility] Red blood cell count [facility] Red blood cell count [facility] Red cell distributio n width determination [facility] Work Phone: Red cell distributio n width determination [facility] Red cell distributio n width determination [facility] Red cell distributio n width determination [facility] Respiratory microbia l culture Respiratory Culture [facility] Sodium [Moles/volume ] in Serum or Plasma [facility] Work Phone: Sodium [Moles/volume ] in Serum or Plasma [facility] Sodium [Moles/volume ] in Serum or Plasma [facility] Sodium [Moles/volume ] in Serum or Plasma [facility] Urea nitrogen [Mass/ volume] in Serum or Plasma [facility] Work Phone: Urea nitrogen [Mass/ volume] in Serum or Plasma [facility] Urea nitrogen [Mass/ volume] in Serum or Plasma [facility] Urea nitrogen [Mass/ volume] in Serum or Plasma [facility] Immunizations Immunization Date Immunization Notes Care Provider [facility] 08-20-2023 influenza, injectabl e, quadrivalent, preservative free Dr. Jayme Yang Work Phone: [facility] 09-17-2022 tetanus toxoid, redu rhiannon diphtheria toxoid, and acellular pertussis vaccine, adsorbed Dr. Jayme Yang Work Phone: [facility] 09-03-[address] Jayme Yang Work Phone: [facility] 08-07-2022 Covid Moderna Bivale nt Booster Dr. Jayme Yang Work Phone: [facility] 07-27-2022 influenza, injectabl e, quadrivalent, preservative free Dr. Jayme Yang Work Phone: [facility] 07-27-2022 influenza, seasonal, injectable Dr. Jayme Yang Work Phone: [facility] 06-21-[address] Jayme Yang Work Phone: [facility] 12-29-2021 Covid (Pfizer) Dr. Jayme eric Work Phone: [facility] 09-20-2021 Covid (Moderna) Dr. Jayme jolley Work Phone: [facility] 08-09-2021 influenza, injectabl e, quadrivalent, preservative free Dr. Jayme Yang Work Phone: [facility] 01-13-2021 Covid (Moderna) Dr. Jayme jolley Work Phone: [facility] 12-16-2020 Covid (Moderna) Dr. Jayme jolley Work Phone: [facility] 07-30-[address] Jayme Yang Work Phone: [facility] 07-29-2018 influenza, injectabl e, quadrivalent, preservative free Dr. Jayme Yang Work Phone: [facility] 07-19-[address] Jayme Yang Work Phone: [facility] 07-30-2017 Seasonal, quadrivale nt, recombinant, injectable influenza vaccine, preservative free Dr. Jayme Yang Work Phone: [facility] 06-30-[address] Jayme Yang Work Phone: [facility] 09-10-2016 pneumococcal conjuga te vaccine, [address] Jayme Yang Work Phone: [facility] 09-08-2015 pneumococcal polysaccharide vaccine, [address] Jayme Yang Work Phone: [facility] 08-12-2013 influenza, injectabl e, quadrivalent, preservative free Dr. Jayme Yang Work Phone: [facility] 09-14-2009 novel influenza-H1N1 -09, preservative-free, injectable Dr. Jayme Yang Work Phone: [facility] Payers Date Payer Category Payer Unknown [id number] 2024 Unknown [id number] 2023 Private Health Insurance [facility] [id number] 2023 Self-pay [id number] 2016 Unknown [id number] 2005 Medicare [id number] Unknown [id number] Unknown [id number] Unknown [id number] 2.16.8 40.1.685098.3.579.2.462 Unknown [id number] 2.16.8 40.1.653265.3.579.2.462 Unknown [id number] 2.16.8 40.1.777293.3.579.2.462 Unknown [id number] 2.16.8 40.1.802667.3.579.2.462 Unknown [id number] 2.16.8 40.1.412770.3.579.2.462 Unknown [id number] 2.16.8 40.1.934822.3.579.2.462 Unknown [id number] 2.16.8 40.1.234945.3.579.2.462 Unknown [id number] 2.16.8 40.1.746263.3.579.2.462 Unknown [id number] 2.16.8 40.1.311380.3.579.2.462 Unknown [id number] 2.16.8 40.1.690610.3.579.2.462 Unknown [id number] 2.16.8 40.1.387530.3.579.2.462 Unknown [id number] 2.16.8 40.1.370996.3.579.2.462 Unknown [id number] 2.16.8 40.1.022850.3.579.2.462 Unknown [id number] 2.16.8 40.1.927345.3.579.2.462 Unknown [id number] 2.16.8 40.1.736074.3.579.2.462 Unknown [id number] 2.16.8 40.1.891940.3.579.2.462 Unknown [id number] 2.16.8 40.1.129405.3.579.2.462 Unknown [id number] 2.16.8 40.1.964769.3.579.2.462 Unknown [id number] 2.16.8 40.1.944395.3.579.2.462 Unknown [id number] 2.16.8 40.1.817553.3.579.2.462 Unknown [id number] 2.16.8 40.1.239093.3.579.2.462 Unknown [id number] 2.16.8 40.1.132380.3.579.2.462 Unknown [id number] 2.16.8 40.1.692080.3.579.2.462 Unknown [id number] 2.16.8 40.1.050858.3.579.2.462 Unknown [id number] 2.16.8 40.1.712909.3.579.2.462 Unknown [id number] 2.16.8 40.1.552417.3.579.2.462 Social History Date Type Detail Facility Start: 12-21-2021 End: 09-20-2023 Tobacco smoking status WVIS Unknown if ever smoked [facility] Start: 06-23-2020 None [facility] Start: 06-23-2020 Alone [facility] Start: 03-24-2020 Cigarettes [facility] Start: 1945 Sex Assigned At Male [facility] Start: 05-27-2024 End: 02-15-2025 Tobacco smoking status NHIS Ex-smoker (finding) [facility] Start: 12-21-2024 End: 01-11-2025 Sex Male (finding) [facility] Medical Equipment Procedure Code Equipment Code Equipment Origin al Text Equipment Identifier Dates STENT,URETERAL 6 FR PIG 6X26 FDA Start: 06-01-2018 STENT,URETERAL 6 FR PIG 6X26 FDA Start: 03-25-2020 STENT,URETERAL 6 FR PIG 6X26 FDA Start: 06-01-2018 STENT,URETERAL 6 FR PIG 6X26 FDA Start: 03-25-2020 STENT,URETERAL 6 FR PIG 6X26 FDA Start: 06-01-2018 STENT,URETERAL 6 FR PIG 6X26 FDA Start: 03-25-2020 STENT,URETERAL 6 FR PIG 6X26 FDA Start: 06-01-2018 STENT,URETERAL 6 FR PIG 6X26 FDA Start: 03-25-2020 STENT,URETERAL 6 FR PIG 6X26 FDA Start: 06-01-2018 STENT,URETERAL 6 FR PIG 6X26 FDA Start: 03-25-2020 STENT,URETERAL 6 FR PIG 6X26 FDA Start: 06-01-2018 STENT,URETERAL 6 FR PIG 6X26 FDA Start: 03-25-2020 STENT,URETERAL 6 FR PIG 6X26 FDA Start: 06-01-2018 STENT,URETERAL 6 FR PIG 6X26 FDA Start: 03-25-2020 STENT,URETERAL 6 FR PIG 6X26 FDA Start: 06-01-2018 STENT,URETERAL 6 FR PIG 6X26 FDA Start: 03-25-2020 STENT,URETERAL 6 FR PIG 6X26 FDA Start: 06-01-2018 STENT,URETERAL 6 FR PIG 6X26 FDA Start: 03-25-2020 STENT,URETERAL 6 FR PIG 6X26 FDA Start: 06-01-2018 STENT,URETERAL 6 FR PIG 6X26 FDA Start: 03-25-2020 STENT,URETERAL 6 FR PIG 6X26 FDA Start: 06-01-2018 STENT,URETERAL 6 FR PIG 6X26 FDA Start: 03-25-2020 STENT,URETERAL 6 FR PIG 6X26 FDA Start: 06-01-2018 STENT,URETERAL 6 FR PIG 6X26 FDA Start: 03-25-2020 STENT,URETERAL 6 FR PIG 6X26 FDA Start: 06-01-2018 STENT,URETERAL 6 FR PIG 6X26 FDA Start: 03-25-2020 FDA Start: 06-01-2018 FDA Start: 03-25-2020 FDA Start: 06-01-2018 FDA Start: 03-25-2020 FDA Start: 06-01-2018 FDA Start: 03-25-2020 STENT,URETERAL 6 FR PIG 6X26 FDA Start: 06-01-2018 STENT,URETERAL 6 FR PIG 6X26 FDA Start: 03-25-2020 STENT,URETERAL 6 FR PIG 6X26 FDA Start: 06-01-2018 STENT,URETERAL 6 FR PIG 6X26 FDA Start: 03-25-2020 STENT,URETERAL 6 FR PIG 6X26 FDA Start: 06-01-2018 STENT,URETERAL 6 FR PIG 6X26 FDA Start: 03-25-2020 STENT,URETERAL 6 FR PIG 6X26 FDA Start: 06-01-2018 STENT,URETERAL 6 FR PIG 6X26 FDA Start: 03-25-2020 STENT,URETERAL 6 FR PIG 6X26 FDA Start: 06-01-2018 STENT,URETERAL 6 FR PIG 6X26 FDA Start: 03-25-2020 STENT,URETERAL 6 FR PIG 6X26 FDA Start: 06-01-2018 STENT,URETERAL 6 FR PIG 6X26 FDA Start: 03-25-2020 STENT,URETERAL 6 FR PIG 6X26 FDA Start: 06-01-2018 STENT,URETERAL 6 FR PIG 6X26 FDA Start: 03-25-2020 STENT,URETERAL 6 FR PIG 6X26 FDA Start: 06-01-2018 STENT,URETERAL 6 FR PIG 6X26 FDA Start: 03-25-2020 STENT,URETERAL 6 FR PIG 6X26 FDA Start: 06-01-2018 STENT,URETERAL 6 FR PIG 6X26 FDA Start: 03-25-2020 MARKERS, FIDUCIA L GOLD FDA Start: 08-07-2023 [id number] FDA Start: 08-07-2023 STENT,URETERAL 6 FR PIG 6X26 FDA Start: 06-01-2018 STENT,URETERAL 6 FR PIG 6X26 FDA Start: 03-25-2020 MARKERS, FIDUCIA L GOLD FDA Start: 08-07-2023 STENT,URETERAL 6 FR PIG 6X26 FDA Start: 06-01-2018 STENT,URETERAL 6 FR PIG 6X26 FDA Start: 03-25-2020 MARKERS, FIDUCIA L GOLD FDA Start: 08-07-2023 STENT,URETERAL 6 FR PIG 6X26 FDA Start: 06-01-2018 STENT,URETERAL 6 FR PIG 6X26 FDA Start: 03-25-2020 MARKERS, FIDUCIA L GOLD FDA Start: 08-07-2023 FDA Start: 06-01-2018 FDA Start: 03-25-2020 FDA Start: 08-07-2023 FDA Start: 06-01-2018 FDA Start: 03-25-2020 FDA Start: 08-07-2023 FDA Start: 06-01-2018 FDA Start: 03-25-2020 FDA Start: 08-07-2023 FDA Start: 06-01-2018 FDA Start: 03-25-2020 FDA Start: 08-07-2023 FDA Start: 06-01-2018 FDA Start: 03-25-2020 FDA Start: 08-07-2023 FDA Start: 06-01-2018 FDA Start: 03-25-2020 FDA Start: 08-07-2023 FDA Start: 06-01-2018 FDA Start: 03-25-2020 FDA Start: 08-07-2023 FDA Start: 06-01-2018 FDA Start: 03-25-2020 FDA Start: 08-07-2023 FDA Start: 06-01-2018 FDA Start: 03-25-2020 FDA Start: 08-07-2023 STENT,URETERAL 6 FR PIG 6X26 FDA Start: 06-01-2018 STENT,URETERAL 6 FR PIG 6X26 FDA Start: 03-25-2020 MARKERS, FIDUCIA L GOLD FDA Start: 08-07-2023 FDA Start: 06-01-2018 FDA Start: 03-25-2020 FDA Start: 08-07-2023 Goals Date Patient Goal Desired Activity /State Functional Status Date Assessment Result Facility 11-13-2023 Functional status Ambulates [facility] Work Phone: 09-24-2023 Functional status Up ad dong [facility] Work Phone: 09-05-2023 Functional status Ambulates;Stand with Ur inal [facility] Work Phone: 09-04-2023 Functional status Assist with Urinal [facility] Work Phone: 03-26-2023 Functional status Chair mode [facility] Work Phone: 10-05-2022 Functional status Chair [facility] Work Phone: 12-23-2021 Functional status Ambulates;Chair [facility] Work Phone: Mental Status Date Assessment Result Facility 11-13-2023 Cognitive function Voice/Name [facility] Work Phone: 11-11-2023 Cognitive function Voice/Name [facility] Work Phone: 09-24-2023 Cognitive function Voice/Name [facility] Work Phone: 09-05-2023 Cognitive function Anxious;Uncoo perative;Guarded; Suspicious [facility] Work Phone: 09-04-2023 Cognitive function Anxious;Uncoo perative;Guarded; Suspicious;Resistive to Care [facility] Work Phone: 08-07-2023 Cognitive function Voice/Name [facility] Work Phone: 03-25-2023 Cognitive function Voice/Name [facility] Work Phone: 10-05-2022 Cognitive function Appropriate;Cooperativ e [facility] Work Phone: 10-04-2022 Cognitive function Level Of Cons ciousness Awake;Alert;Appropriate;Follow s Commands [facility] Work Phone: 12-23-2021 Cognitive function Voice/Name [facility] Work Phone: 10-13-2021 Cognitive function Awake;Alert;A ppropriate;Follow s Commands [facility] Work Phone: 08-25-2021 Cognitive function Level Of Cons ciousness Awake;Alert;Appropriate;Follow s Commands [facility] Work Phone: Clinical Notes 10-02-2022 to 02-15-2025 Note Date & Type Note Facility 02-15-2025 Radiology Diagnostic study note [facility] 02-15-2025 Discharge summary Note Date/Time February 15, 2025 7:08p m [facility] Medical Records Department [address] [place] [address] Emergency Department Summary 02/15/25 MR#: [id number] Acct: [id number] Name: MEGAN GIMENEZ Rep #:[id number] : 1945 79 From: Jonathan Lopez MD PCP: Dr. Jayme Yang MD Status:REG E R Location: ED HPI HPI - URI History of Present Illness Chief Complaint: Shortness of Breath Informant: patient and spouse/S.O. Onset/Context/Timing Onset: Weeks (1 week since last Saturday.) Context: Gradual Onset Timing: Continuous Current Severity: Moderate Maximum Severity: Moderate Associated Symptoms Associated Symptoms: Positive for Productive Cough (Yellow and green phlegm. Fever.) Narrative Narrative: 79-year-old male history of diabetes intermittent A-fib currently not on blood thinners due to anemia. He has been coughing with yellow and green productive phlegm for about a week with some shortness of breath. said he had a feveras high as 101.7. No vomiting or diarrhea. Saw his primary care physician today Dr. Jayme Yang was sent to the emergency department for possible admission for pneumonia. Prior similar symptoms: Yes Recent Illness/Hospitalization: No ROS ROS ED Constitutional Constitutional ED: Reports fever(s); Denies chills Eyes Eyes: Denies blurry vision Cardiovascular Cardiovascular: Denies chest pain Respiratory/Chest Respiratory/Chest: Reports cough, dyspnea and sputum Gastrointestinal Gastrointestinal: Denies abdominal pain, diarrhea, nausea or vomiting Genitourinary Genitourinary ED: Denies dysuria or hematuria Musculoskeletal Musculoskeletal: Denies arthralgias Integumentary Denies abscess Neurologic Neurologic: Denies headache(s) Psychiatric Psychiatric: Denies anxiety or depression Endocrine Endocrinology: Denies cold intolerance Hematologic/Lymphatic Hematologic/Lymphatic: Denies easy bleeding, easy bruising or lymphadenopathy Allergic/Immunologic Allergic/Immunologic ED: Denies mouth swelling, tongue swelling or urticaria PFSH PFSH Medical History Abrasion of chin Dysuria BiPAP (biphasic positive airway pressure) dependence Pneumonia Prostate cancer Dyspnea on exertion Depression Anxiety High cholesterol Cancer of prostate with intermediate recurrence risk (stage T2b-c or [place] 7 or PSA 10-20) Heart failure Prostate cancer Sinus drainage HTN (hypertension) Pneumonia Hypokalemia Gout flare Inability to walk Arthralgia of right knee Arthralgia of foot, left Anticoagulant long-term use Effusion, right knee Effusion, left knee Rib pain White coat syndrome without diagnosis of hypertension Fatigue Nonrheumatic aortic (valve) stenosis Atherosclerotic heart disease of [place] coronary artery without angina pectoris Closed head injury Abnormal stress test NSVT (nonsustained ventricular tachycardia) Aortic stenosis LVH (left ventricular hypertrophy) Syncope and collapse SOB (shortness of breath) Wears dentures Wears hearing aid Wears glasses History of steroid therapy Rheumatoid arthritis Arthritis History of renal disease Excessive bleeding Back pain Loss of consciousness Injury of head and neck Gastric reflux Former smoker CPAP (continuous positive airway pressure) dependence Sleep apnea History of edema History of echocardiogram History of stress test Cardiology follow-up encounter History of atrial fibrillation Acute bronchitis with bronchospasm Paroxysmal atrial fibrillation COVID-19 virus infection Severe acute respiratory syndrome coronavirus 2 (SARS-CoV-2) infection ruled out Sepsis Asthma Intractable pain Renal colic on left side Ureterolithiasis Dementia Kidney stones Asymptomatic hypertensive urgency Concussion Essential hypertension Pulmonary hypertension SUPA (obstructive sleep apnea) Diverticula of colon Colitis Bronchitis Atrial fibrillation with RVR Hypertensive urgency Rhinovirus Severe sepsis Acute respiratory insufficiency DM2 (diabetes mellitus, type 2) Hyperlipidemia Inflammatory bowel disease Rheumatoid aortitis Home Medications ?Medication ?Instructions ?Recorded ?Last Taken ?Type duloxetine 60 mg capsule,delayed 60 mg PO DAILY depres geovanna 06/02/19 09/20/23 History release (Cymbalta) buspirone 7.5 mg tablet 7.5 mg PO BID depression/anx iety 04/12/21 09/20/23 History latanoprost 0.005 % eye drops 1 drp LEFT EYE QPM eye h ealth 12/22/21 03/20/23 History gabapentin 600 mg tablet 300 mg PO BID neuropathy 11/11/23 17:00 History 300 mg carvedilol 25 mg tablet 25 mg PO BID HEART 10/02/22 09/20/23 History oxybutynin chloride 10 mg 10 mg PO DAILY bladder 10/0409/20/23 History tablet,extended release 24 hr timolol maleate 0.5 % eye drops 1 drp LEFT EYE DAILY E [place] Lithotripsy 10/04/22 03/20/23 History infliximab 100 mg intravenous 100 mg IV .Q7W crohns 09/04/23 History solution (Remicade) guaifenesin 1,200 mg tablet, 1,200 mg PO BID PRN 11/19 Unknown History extended release 12 hr (Mucus Relief ER) calcium carbonate (Calcium 600) 600 mg PO DAILY Unknown History esomeprazole magnesium 20 mg 20 mg PO DAILY 12/11/23 U nknown History capsule,delayed release (Nexium) loratadine 10 mg tablet (Allergy 10 mg PO DAILY Unknown History Relief (loratadine)) multivitamin 1 tab PO DAILY 12/11/23 Unkn own History furosemide 40 mg tablet 40 mg PO DAILY 04/06/24 Unkn own History minoxidil 2.5 mg tablet 2.5 mg PO BID 04/06/24 Unkno wn History semaglutide 0.25 mg or 0.5 mg (2 0.25 mg subcut QWEEK 04/06/24 Unknown History mg/3 mL) subcutaneous pen injector (Ozempic) hydralazine 100 mg tablet 100 mg PO TID BLOOD PRESSURE #270 06/02/24 Unknown Rx tabs levothyroxine 25 mcg tablet 25 mcg PO QDAY #30 tabs Unknown Rx linaclotide 145 mcg capsule 145 mcg PO QDAY 06/26/24 U nknown History (Linzess) rosuvastatin 20 mg tablet 20 mg PO DAILY for cholester ol #90 07/29/24 Unknown Rx TABLETS isosorbide mononitrate 60 mg 60 mg PO BID BLOOD PRESSU RE #180 08/03/24 Unknown Rx tablet,extended release 24 hr tabs doxazosin 4 mg tablet See Rx Instructions .Route 1 11/01/23 Unknown Rx .COMPLEX #180 TABLETS nystatin 100,000 unit/mL oral 5 ml mucous membrane TID #250 mL 11/17/24 Unknown Rx suspension montelukast 10 mg tablet 10 mg PO QPM #90 tabs Unknown Rx amiodarone 200 mg tablet See Rx Instructions .Route 0 12/23/24 Unknown Rx .COMPLEX #45 TABLETS potassium chloride 10 mEq See Rx Instructions .Route 0 12/23/24 Unknown Rx tablet,extended release(part/cryst) .COMPLEX #90 tabs fluticasone furoate 200 1 inh inhalation QDAY #3 ea 01/22/25 Unknown Rx mcg-vilanterol 25 mcg/dose inhalation powder (Breo Ellipta) azithromycin 250 mg tablet 250 mg PO DAILY 4 days #4 t abs 02/15/25 Unknown Rx (Zithromax) dapagliflozin propanediol 5 mg 5 mg PO DAILY 02/15/25 Unknown History tablet (Farxiga) losartan 50 mg tablet 50 mg PO DAILY 02/15/25 Unkn own History Allergy/AdvReac Type Severity Reaction Status Date / Time aspirin Allergy Severe Mouth Verified 02/15/25 16:31 swelling donepezil (From Aricept) AdvReac Severe Swelling Verified 02/15/25 16:31 morphine AdvReac Severe UNABLE TO Verified 02/15/25 16:31 URINATE Family History Mother Heart disease Diabetes Father Heart disease Lung disease Brother Heart disease Lung disease Cancer prostate, pancreatic Sister Diabetes Cancer uterine Surgical History History of cardiac catheterization History of prostate biopsy History of left heart catheterization (LHC) (~12/22/21) Hx of surgical procedure Hx of colectomy Hx of cystoscopy History of bilateral knee replacement History of back surgery Cervical vertebral fusion History of removal of cyst Social History Smoking Status: Former smoker how long ago did patient quit smokin, 2ppd second hand exposure: Yes alcohol intake: never substance use type: does not use caffeine: Yes Type: coffee Number of servings: 2 EXAM Physical Exam Narrative Exam Narrative: -year-old male sitting upright in bed. bedside. Vital signs are stable heis currently afebrile temperature 97.9. Pulse ox 97% room air no hypoxia. No distress. Wet sounding deep cough. H EENT exam pupils round reactive light. Mildly dry mucous membranes. Neck nontender no JVD. No lymphadenopathy. Lungsbilateral rhonchi. No rales. No wheezing. Equal symmetrical. Wet cough. Heart regular rhythm rate about 85 no murmur. Chest wall ribs nontender. Abdomen soft nontender. Moving all 4 extremities. Bilateral 5/5 powertrain engineer strength. Dorsi plantarflexion intact. Calves are nontender without edema or cords. Neurologically he is awake and alert. Answering questions following commands. Const Vital Signs: 02/15/25 16:31 02/15/25 16:34 02/15/25 16:54 Temperature 97.9 F 98.2 F 97.9 F Temperature Source Temporal Oral Axillary Pulse Rate 85 86 Respiratory Rate 18 20 H Respiratory Effort Respiratory Depth Respiratory Pattern Blood Pressure 114/57 L 117/54 L Blood Pressure Mean 76 75 Pulse Ox 97 95 Oxygen Delivery Method Room Air Room Air 02/15/25 16:56 02/15/25 16:58 02/15/25 17:33 Temperature 97.9 F Temperature Source Axillary Pulse Rate 79 Respiratory Rate 18 Respiratory Effort Labored Respiratory Depth Normal Respiratory Pattern Tachypnea Blood Pressure 154/72 H Blood Pressure Mean 99 Pulse Ox 94 Oxygen Delivery Method Room Air Room Air Room Air 02/15/25 18:00 02/15/25 18:52 Temperature 98.0 F 98.2 F Temperature Source Axillary Pulse Rate 79 86 Respiratory Rate 21 H 20 H Respiratory Effort Respiratory Depth Respiratory Pattern Blood Pressure 141/68 H 138/74 H Blood Pressure Mean 92 95 Pulse Ox 90 93 Oxygen Delivery Method Room Air Positive well nourished and well developed; Negative for obese, cachectic or contractures General Appearance ED: well developed and NAD; Negative for cachectic, contractures, cyanotic, diaphoretic or pallor Nutritional Appearance: Negative for cachectic or obese HEENT Reports dry mucous membranes; Denies moist mucous membranes normocephalic and atraumatic Mouth ED: Yes dry mucous membranes Mouth: dry mucous membranes Throat: posterior oropharynx normal Eyes PERRL and EOMs intact bilaterally Neck no lymphadenopathy, supple and no meningeal signs General: Negative for anterior neck swelling or lymphadenopathy Resp normal respiratory effort and No clear to auscultation bilaterally Auscultation: rhonchi Cardio S1 normal heart sound, S2 normal heart sound and no murmurs Rate: regular rate Rhythm: regular rhythm GI non-tender, non-distended and no masses Auscultation: normoactive bowel sounds Palpation: soft and tender Back/Spine no CVA tenderness and normal ROM General Back: Negative for CVA tenderness Cervical Spine: Negative for cervical spine tenderness Thoracic Spine / Upper Back: Negative for thoracic spinal tenderness Lumbar Spine / Lower Back: Negative for lumbar spinal tenderness Extremity normal to inspection General Extremety ED: Negative for cyanosis or tenderness General Extremity: Negative for cyanosis Neuro oriented x3 and CN's II-XII intact bilaterally Sensorium / Orientation: alert, oriented to person, oriented to place and oriented to time; Negative for orientation impaired, lethargic or stuporous Motor Exam: strength 5/5 throughout Psych mental status grossly normal Attitude: No agitated Mood & Affect: Negative for depressed, anxious or tearful Skin General Skin Exam: Negative for jaundice or pallor Lesions: no lesions Rashes: no rashes MDM MDM MDM Narrative Medical decision making narrative: 79-year-old male wet sounding cough consider pneumonia versus COVID and flu versus other etiologies. Chest x-ray with screening labs and EKG will be obtained. Repeat exam patient is doing well at 1845. I went over test results with both he and his . There is no obvious signs of pneumonia. He is afebrile currently. He has a normal white count. His chest x-ray was similar to prior and was read as negative today by the radiologist. I will put him on Zithromax Z-ADORE. First dose given here. I spoke to Dr. Douglas covering for the patient's primary care physician Dr. Yang. He will follow-up as needed or return if worse. He and his are comfortable with the plan. We did ambulate him his pulse ox stayed 93% on room air in the hallway. History & Record Review Discussion w/independent historian: Family Additional record(s) reviewed:: Prior inpatient record, Prior outpatient record,Prior ED visit and Prior labs Lab Data Attestation: I reviewed the patient's lab results. Lab results narrative: CBC white count 7.4. H&H 9.9 and 29 which is baseline anemia. Platelets 185. Electrolytes shows sodium 137. Gap 12. BUN and creatinine 23 and 1.69 he is chronic renal insufficiency that is consistent with his prior creatinines. Glucose 154. Chest x-ray chronic changes. Cannot rule out a right lower lobe or posterior upper lobe pneumonia. But he has had opacities seen in the same area in the past. Labs: Laboratory Results - last 24 hr 02/15/25 16:50 WBC 7.4 RBC 3.18 L Hgb 9.9 L Hct 29.3 L MCV 92.1 MCH 31.1 MCHC 33.8 RDW Std Deviation 47.8 H RDW Coeff of Azeem 14.1 Plt Count 185 MPV 10.4 Immature Gran % (Auto) 0.300 Neut % (Auto) 65.0 Lymph % (Auto) 22.7 [place] % (Auto) 10.9 H Eos % (Auto) 0.8 Baso % (Auto) 0.3 Absolute Neuts (auto) 4.8 Absolute Lymphs (auto) 1.69 Nucleated RBC % 0 Sodium 137 Potassium 4.0 Chloride 102 Carbon Dioxide 23.1 Anion Gap 12 BUN 23 H Creatinine 1.69 H Estim Creat Clear Calc 33.98 L Est GFR (MDRD) Non-Af 41 L BUN/Creatinine Ratio 13.5 Glucose 154 H Calcium 8.7 Radiography Chest X-Ray - ED: 2 View, Read by ED Physician, Read by Radiologist, Lungs, Mediastinum, Bony Structures, No Acute Disease and Chronic Changes Diagnostic Testing: Clinical Impression(s) from Imaging Studies Chest X-Ray 02/15/25 17:05 IMPRESSION: No evidence of an acute cardiopulmonary abnormality. Reading Location: [facility] Chest x-ray, 2 views, AP and lateral. Read by the radiologist as no acute process. He has cardiomegaly. There is density in the mid thoracic spine on lateral view and question right lower lobe infiltrate. But this has been seen on prior films so was read as no acute process. Rhythm Strip Rhythm Strip: Sinus Rhythm Rate: 91 Ectopy: None EKG Initial EKG: Attestation: I personally reviewed and interpreted this EKG as follows: Interpretation: Sinus Rhythm and No Acute Injury Pattern Comments: Normal sinus rhythm. Rate of 91. First-degree AV block with a ME interval of 210. Discharge Plan Triage Chief Complaint: Shortness of Breath ED Provider: Jonathan Lopez Dx/Rx/DC Orders Clinical Impression: Bronchitis Instructions: Acute Bronchitis Prescriptions: New azithromycin [Zithromax] 250 mg tablet 250 mg PO DAILY 4 Days Qty: 4 0RF Rx Instructions: start on day 2 of therapy No Action duloxetine [Cymbalta] 60 mg capsule,delayed release(DR/EC) 60 mg PO DAILY gabapentin 600 mg tablet 300 mg PO BID guaifenesin [Mucus Relief ER] 1,200 mg tablet extended release 12hr 1,200 mg PO BID PRN furosemide 40 mg tablet 40 mg PO DAILY minoxidil 2.5 mg tablet 2.5 mg PO BID Ozempic 0.25 mg or 0.5 mg (2 mg/3 mL) pen injector 0.25 mg subcut QWEEK Rx Instructions: for 4 weeks multivitamin Tablet 1 tab PO DAILY calcium carbonate [Calcium 600] 600 mg calcium (1,500 mg) tablet 600 mg PO DAILY loratadine [Allergy Relief (loratadine)] 10 mg tablet 10 mg PO DAILY esomeprazole magnesium [Nexium] 20 mg capsule,delayed release(DR/EC) 20 mg PO DAILY Linzess 145 mcg capsule 145 mcg PO QDAY levothyroxine 25 mcg tablet 25 mcg PO QDAY Qty: 30 2RF nystatin 100,000 unit/mL suspension 5 ml mucous membrane TID Qty: 250 1RF Rx Instructions: swish and swallow 5 cc three times per day for 10 days buspirone 7.5 mg tablet 7.5 mg PO BID Patient Comments: PT IS NOT SURE OF THE DOSAGE latanoprost 0.005 % Drops 1 drp LEFT EYE QPM carvedilol 25 mg tablet 25 mg PO BID Patient Comments: PT IS NOT SURE OF THE DOSAGE oxybutynin chloride 10 mg tablet extended release 24hr 10 mg PO DAILY timolol maleate 0.5 % drops 1 drp LEFT EYE DAILY infliximab [Remicade] 100 mg recon soln 100 mg IV .Q7W Patient Comments: INFUSE 10MG/KG IV EVERY 7 WEEKS. DUE ON Saturday09/06/23 losartan 50 mg tablet 50 mg PO DAILY dapagliflozin propanediol [Farxiga] 5 mg tablet 5 mg PO DAILY hydralazine 100 mg tablet 100 mg PO TID Qty: 270 3RF rosuvastatin 20 mg tablet 20 mg PO DAILY Qty: 90 3RF isosorbide mononitrate 60 mg tablet extended release 24 hr 60 mg PO BID Qty: 180 3RF doxazosin 4 mg tablet See Rx Instructions .ROUTE .COMPLEX Qty: 180 3RF Dose Instruction: Take 1 tablet by mouth twice daily Rx Instructions: Take 1 tablet by mouth twice daily montelukast 10 mg tablet 10 mg PO QPM Qty: 90 3RF potassium chloride 10 mEq tablet,ER particles/crystals See Rx Instructions .ROUTE .COMPLEX Qty: 90 3RF Dose Instruction: TAKE 1 TABLET BY MOUTH ONCE DAILY NEEDED FOR SUPPLEMENT Rx Instructions: TAKE 1 TABLET BY MOUTH ONCE DAILY NEEDED FOR SUPPLEMENT amiodarone 200 mg tablet See Rx Instructions .ROUTE .COMPLEX Qty: 45 3RF Dose Instruction: Take 1/2 (one-half) tablet by mouth once daily Patient Comments: PT IS NOT SURE OF THE DOSAGE Rx Instructions: Take 1/2 (one-half) tablet by mouth once daily fluticasone furoate-vilanterol [Breo Ellipta] 200-25 mcg/dose blister with device 1 inh inhalation QDAY Qty: 3 3RF Rx Instructions: after inhalation, rinse mouth with water and spit out; do not swallow Primary Care Provider: Jayme Yang Referrals: Jayme Yang MD [Primary Care Provider] - 3-5 Days if not improving Activity Restrictions/Additional Instructions: Plenty of fluids and rest. Take the antibiotic Zithromax 1 pill a day starting tomorrow at lunch. For 4 more days. You are given your first dose which is 2 pills in the emergency department today. I spoke to your primary care physician's office. I spoke to Dr. Douglas today. Follow-up with their office as needed. Return if feeling worse. Your labs and chest x-ray look good today. Print Language: [place] Disposition Disposition: Home, Self Care What to do if you have Problems For any increased pain, shortness of breath, bleeding, nausea or vomiting, chestpain, or any unexpected problems, contact your Primary Care Provider. Call [facility] ([phone]) or report to the closest Emergency Room. Call 911 if necessary. 02/15/251907 <Electronically signed by Jonathan Lopez MD> Cosigner Signature (if applicable): CC: Dr. Jayme Yang MD ~ Signed [facility] Work Phone: 1(672) 394-509202-18-2025 Evaluation note* Diagnosis Onset Date Resolution Status Admit Date Oral thrush acute October 10:09am Asthma chronic November 17, 2024 10:09am SUPA (obstructive sleep apnea) chroni c November 17, 2024 10:09am Pulmonary hypertension chronic Fe bruary 2024 10:09am Fatigue acute November 27, 2024 8:21am History of left heart catheterization (LHC) November, acute November 012024 8:21am On amiodarone therapy acute Feb ruary 2024 8:21am Paroxysmal atrial fibrillation chron ic November 27, 2024 8:21am [facility] Work Phone: 1(616) 361-492101-07-2025 Evaluation note* Diagnosis Onset Date Resolution Status Admit Date Cancer of prostate with intermediate recurrence risk (stage T2b-c or Gleaso acute October 062024 9:19am Oral thrush acute October 10:09am Asthma chronic November 17, 2024 10:09am SUPA (obstructive sleep apnea) chroni c November 17, 2024 10:09am Pulmonary hypertension chronic Fe bru2024 10:09am Fatigue acute November 27, 2024 8:21am History of left heart catheterization (LHC) November, acute November 012024 8:21am On amiodarone therapy acute Feb ruary 2024 8:21am Paroxysmal atrial fibrillation chron ic November 27, 2024 8:21am [facility] Work Phone: 1(543) 827-562502-14-2024 Consult note Author Joelle Barros [facility] November 13, 2023 11:30am Note Date/Time November 13, 2023 11:30am [facility] Medical Records Department [address] [place] [id number] Counseling Note - Pharmacy 11/13/23 1129 MR#: [id number] Acct: [id number] Name: MEGAN GIMENEZ Rep #:[id number] : 1945 78 From: Joelle Barros PCP: Dr. Jayme Yang MD Status:ADM I N Y Location: [place] [address] Pharmacy [facility] has performed discharge medication reconciliation and counseling for this patient. 1. CLOPIDOGREL 75MG PO DAILY 2. RANOLAZINE 500MG PO BID The patient's discharge medication list was reviewed for discrepancies and discrepancies were resolved. The patient was counseled on the following discharge medications and changes in medications for homegoing were reviewed. The Reason for Use, instructions for use, and potential side effects were reviewed for all new medications. The patient's questions regarding all of their medications were answered. The patient was able to verbally demonstrate an understanding of their dischargemedications. Patient counseled by pharmacy order entry technician, Davion. Medications at Discharge Home Medications glimepiride 2 mg tablet 2 mg PO QHS diabetes 01/22/18 duloxetine 60 mg capsule,delayed release (Cymbalta) 60 mg PO DAILY depression 06/02/19 buspirone 7.5 mg tablet 7.5 mg PO BID depression/anxiety 04/12/21 latanoprost 0.005 % eye drops 1 drp LEFT EYE QPM eye health 12/22/21 gabapentin 600 mg tablet 300 mg PO BID neuropathy 01/26/22 carvedilol 25 mg tablet 25 mg PO BID HEART 10/02/22 losartan 100 mg tablet 100 mg PO DAILY BLOOD PRESSURE 10/02/22 oxybutynin chloride 10 mg tablet,extended release 24 hr 10 mg PO DAILY bladder 10/04/22 timolol maleate 0.5 % eye drops 1 drp LEFT EYE DAILY EYE HEALTH 10/04/22 apixaban 5 mg tablet 5 mg PO BID afib #180 tabs 12/03/22 rosuvastatin 20 mg tablet 10 mg PO DAILY cholesterol 03/21/23 fluticasone furoate 200 mcg-vilanterol 25 mcg/dose inhalation powder (Breo Ellipta) 1 inh inhalation QDAY #60 ea 04/04/23 infliximab 100 mg intravenous solution (Remicade) 100 mg IV .Q7W crohns 05/24/23 hydralazine 100 mg tablet 100 mg PO TID BLOOD PRESSURE #270 tabs 06/14/23 isosorbide mononitrate 60 mg tablet,extended release 24 hr 60 mg PO BID BLOOD PRESSURE #90 tabs 07/25/23 montelukast 10 mg tablet 10 mg PO QPM #30 tabs 07/25/23 amiodarone 200 mg tablet See Rx Instructions .Route .COMPLEX #45 TABLETS 08/28/23 potassium chloride 10 mEq tablet,extended release(part/cryst) 10 meq PO DAILY supplement 09/04/23 guaifenesin 1,200 mg tablet, extended release 12 hr (Mucus Relief ER) 1,200 mg PO BID #20 tabs 09/05/23 amlodipine 10 mg tablet 5 mg PO DAILY 09/20/23 quetiapine 25 mg tablet 25 mg PO DAILY 09/20/23 doxazosin 4 mg tablet See Rx Instructions .Route .COMPLEX #60 TABLETS 10/14/23 phenazopyridine 100 mg tablet 100 mg PO TID PRN pain #30 tabs 11/08/23 quetiapine 50 mg tablet 50 mg PO 11/11/23 clopidogrel 75 mg tablet 75 mg PO DAILY 30 days #30 tabs 11/13/23 ranolazine 500 mg tablet,extended release,12 hr 500 mg PO BID 30 days #60 tabs 11/13/23 11/13/23 1130 <Electronically signed by Joelle Barros> Date _ Joelle Barros Cosigner Signature (if applicable): Date CC: ~ Signed [facility] Work Phone: 1(730) 545-358802-14-2024 Discharge summary Author Boris Bojorquez [facility] November 13, 2023 8:39am Note Date/Time November 13, 2023 8:31am [facility] Medical Records Department [address] [place] [id number] Instructions for Home/Discharge Instructions 11/13/23 0831 MR#: [id number] Acct: [id number] Name: MEGAN GIMENEZ Rep #:[id number] : 1945 78 From: Boris matos MD PCP: Dr. Jayme Yang MD Status:ADM I N Discharge Instructions Diet Discharge Diet: Low fat / Low cholesterol and Carb Control Diet Activity Discharge Activity: Return to Normal Activity Dressing / Incision Call your doctor if you observe: Fever of 101 or Higher, Shortness of breath, Dizziness, Fainting spells, Swelling in the ankles, Chest pain and Increased palpitations (irregular heartbeat) Follow Up Care Test Results: Test results from this visit will be discussed in further detail at your follow- up appointment, if applicable. Discharge Plan Admission Admit Date/Time: 11/12/23 15:34 Attending Provider: Boris Bojorquez Primary Care Provider: Jayme Yang Consulting Providers: Dyan Oviedo; Arnaud Watkins; Laurita White; Deng Vieira; Maxine Miguel; Ronaldo Mishra; Mumtaz Elizondo; Rico Parish; Makenna Naqvi; Suzie Ashton; Rachid Escobedo; Myrna Hendrix; Clifford Cordero; Jayme Lino; Channing Maldonado; Domenico Ordaz; Nabil Marie; Teja Jefferson SCOUT SNIPER; Dyan Chavez SCOUT SNIPER;Faye Martinez; Laureano Lucero; Js Lee Discharge Orders/Prescriptions Prescriptions: New clopidogrel 75 mg Tablet 75 mg PO DAILY 30 Days Qty: 30 0RF ranolazine 500 mg Tablet Extended Release 12 Hr 500 mg PO BID 30 Days Qty: 60 0RF Continued duloxetine [Cymbalta] 60 mg capsule,delayed release(DR/EC) 60 mg PO DAILY gabapentin 600 mg tablet 300 mg PO BID fluticasone furoate-vilanterol [Breo Ellipta] 200-25 mcg/dose blister with device 1 inh inhalation QDAY Qty: 60 6RF Rx Instructions: after inhalation, rinse mouth with water and spit out; do not swallow glimepiride 2 MG tablet 2 mg PO QHS Patient Comments: buspirone 7.5 mg tablet 7.5 mg PO BID Patient Comments: PT IS NOT SURE OF THE DOSAGE latanoprost 0.005 % Drops 1 drp LEFT EYE QPM carvedilol 25 mg tablet 25 mg PO BID Patient Comments: PT IS NOT SURE OF THE DOSAGE losartan 100 mg tablet 100 mg PO DAILY oxybutynin chloride 10 mg tablet extended release 24hr 10 mg PO DAILY timolol maleate 0.5 % drops 1 drp LEFT EYE DAILY rosuvastatin 20 mg tablet 10 mg PO DAILY infliximab [Remicade] 100 mg recon soln 100 mg IV .Q7W Patient Comments: INFUSE 10MG/KG IV EVERY 7 WEEKS. DUE ON Saturday09/06/23 potassium chloride 10 mEq tablet,ER particles/crystals 10 meq PO DAILY guaifenesin [Mucus Relief ER] 1,200 mg Tablet Extended Release 12hr 1,200 mg PO BID Qty: 20 0RF quetiapine 50 mg tablet 50 mg PO quetiapine 25 mg tablet 25 mg PO DAILY amlodipine 10 mg tablet 5 mg PO DAILY Patient Comments: PT IS NOT SURE OF THE DOSAGE apixaban 5 mg tablet 5 mg PO BID Qty: 180 3RF Patient Comments: PT IS NOT SURE OF THE DOSAGE hydralazine 100 mg tablet 100 mg PO TID Qty: 270 3RF montelukast 10 mg tablet 10 mg PO QPM Qty: 30 3RF isosorbide mononitrate 60 mg tablet extended release 24 hr 60 mg PO BID Qty: 90 3RF amiodarone 200 mg tablet See Rx Instructions .ROUTE .COMPLEX Qty: 45 3RF Dose Instruction: Take 1/2 (one-half) tablet by mouth once daily Patient Comments: PT IS NOT SURE OF THE DOSAGE Rx Instructions: Take 1/2 (one-half) tablet by mouth once daily doxazosin 4 mg tablet See Rx Instructions .ROUTE .COMPLEX Qty: 60 11RF Dose Instruction: Take 1 tablet by mouth twice daily Rx Instructions: Take 1 tablet by mouth twice daily phenazopyridine 100 mg tablet 100 mg PO TID PRN (Reason: pain) Qty: 30 0RF Rx Instructions: take one tab PO tid Discontinued levofloxacin 750 mg tablet 750 mg PO Q48H Qty: 4 0RF Referrals / Follow Up: Ronaldo Mishra MD [Med Staff - Active Staff] - Within 1 Month Jayme Yang MD [Primary Care Provider] - Within 1 Week Disposition Disposition (needs filled in before D/C Order can be placed): Home, Self Care 11/13/23 0839<Electronically signed by Boris Bojorquez MD>Boris Bojorquez MD CC: SCOUT SNIPERDouglas Jefferson; TERESE Chavez; Maxine Miguel MD; Dr. Arnaud Watkins MD; Dr. Js Lee DO; Dr. Laurita White MD; Dr. Deng Vieira MD; Dr. Ronaldo Mishra MD; Dr. Laureano Lucero DO; Dr. Mumtaz Elizondo MD; Dr. Rico Parish MD; Dr. Makenna Naqvi MD; Dr. Suzie Ashton MD; Dr. Myrna Hendrix MD; Dr. Rachid Escobedo MD; Dr. Clifford Cordero MD; Dr. Jayme Lino MD; Dr. Jayme Yang MD; Dr. Domenico Ordaz MD; Dr. Channing Maldonado MD; Dr. Nabil Marie MD; Dyan Oviedo; ADRY Polanco ~ [facility] Work Phone: 1(393) 817-726902-14-2024 Progress note Author Suzie Ashton [facility] November 13, 2023 7:46am Note Date/Time November 13, 2023 7:40am [facility] Medical Records Department [address] [place] [address] Progress Note - Cardiology 11/13/23 0735 MR#: [id number] Acct: [id number] Name: MEGAN GIMENEZ Rep #:[id number] : 1945 78 From: Suzie Ashton MD PCP: Dr. Jayme Yang MD Status:ADM I N Location: [place] [address] Subjective Subjective Patient was sleeping comfortably with his CPAP in place. He was easily arousable reports no recurrence of any chest symptoms. He is tolerating the medical regiment as best I can ascertain. Echocardiogram done yesterday showed a left ventricular ejection fraction of 55%with no wall motion abnormalities. He had a small insignificant pericardial effusion there is no significant valvular changes other than some mitral annularcalcification. There was no mitral regurgitation documented. Objective Data Vital Signs: Vital Signs Temp Pulse Resp BP Pulse Ox O2 Del Method O2 Flow Rate 98.1 F 80 16 154/84 H 96 CPAP 2 11/13/23 04:34 11/13/23 06:17 11/13/23 04:34 11/13/23 06:17 11/13/23 04:34 11/13/23 04:34 11/13/23 04:34 Oxygen Flow Rate (L/min) 2 Oxygen Delivery Method CPAP Weight: 219 lb 5.759 oz Body Mass Index (BMI) 34.3 Intake & Output: Intake and Output for Last 24 Hours 11/11/23 11/12/23 11/13/23 23:59 23:59 23:59 Intake Total 550 / 550 1240 / 1240 100 / 100 Balance 550 / 550 1240 / 1240 100 / 100 Lab / Micro Data Attestation: I reviewed the patient's lab results. 11/12/23 08:36 11/13/23 06:15 Labs: Laboratory Results - last 24 hr 11/12/23 08:36: WBC 5.8, RBC 3.80 L, Hgb 11.8 L, Hct 36.0 L, MCV 94.7 H, MCH 31.1, MCHC 32.8, RDW Std Deviation 54.9 H, RDW Coeff of Azeem 15.7 H, Plt Count 166, MPV 11.4, Sodium 145, Potassium 3.8, Chloride 113 H, Carbon Dioxide 29.0, Anion Gap 3 L, BUN 16, Creatinine 1.27, Estim Creat Clear Calc 53.01, Est GFR (MDRD) Af Amer 70, Est GFR (MDRD) Non-Af 58 L, BUN/Creatinine Ratio 12.6, Glucose 124 H, Calcium 9.4 11/13/23 06:15: Sodium 146 H, Potassium 3.5, Chloride 111 H, Carbon Dioxide 31.0, Anion Gap 4 L, BUN 21 H, Creatinine 1.21, Estim Creat Clear Calc 55.64, Est GFR (MDRD) Af Amer 74, Est GFR (MDRD) Non-Af 61, BUN/Creatinine Ratio 17.4, Glucose 139 H, Calcium 8.9 Rhythm Strip Rhythm Strip: Sinus Rhythm Rate: 65 Cardiology Labs/Tests 11/12/23 08:36: WBC 5.8, RBC 3.80 L, Hgb 11.8 L, Hct 36.0 L, MCV 94.7 H, MCH 31.1, MCHC 32.8, Plt Count 166, MPV 11.4, Sodium 145, Potassium 3.8, Chloride 113 H, Carbon Dioxide 29.0, Anion Gap 3 L, BUN 16, Creatinine 1.27, Est GFR (MDRD) Af Amer 70, Est GFR (MDRD) Non-Af 58 L, BUN/Creatinine Ratio 12.6, Glucose 124 H, Calcium 9.4 11/13/23 06:15: Sodium 146 H, Potassium 3.5, Chloride 111 H, Carbon Dioxide 31.0, Anion Gap 4 L, BUN 21 H, Creatinine 1.21, Est GFR (MDRD) Af Amer 74, Est GFR (MDRD) Non-Af 61, BUN/Creatinine Ratio 17.4, Glucose 139 H, Calcium 8.9 Rhythm: EKG: ECHO: Stress Test: Cardiac Cath: PCI: CT Surgery: Holter monitor: EPS: PPM: CXR: Chest CT Scan: Radiography Diagnostic Testing: Radiology Impression Echocardiogram 11/11/23 22:48 Interpretation Summary The estimated ejection fraction is 55 %. Diastolic function is indeterminate. Small pericardial effusion. Ordering Physician: Laureano Lucero Referring Physician: Jayme Yang Performed By: Terri Butler, JOE, RVT Physical Exam Narrative Patient resting comfortably with CPAP in place. Const Constitutional Narrative: Easily arousable HEENT normocephalic Neck no JVD Chest inspection of chest normal Resp normal respiratory effort Auscultation: diminished lung sounds diffuse (Diffuse sounds consistent with hisCPAP be in place.) Cardio regular rate, regular rhythm, S1 normal heart sound, S2 normal heart sound and no murmurs GI soft to palpation Extremity no pedal edema Psych mental status grossly normal Assessment & Plan Assessment/Plan (1) NSTEMI, initial episode of care: PLAN: I believe his event of this hospitalization represents a demand type ischemic event. Given the fact that his LV function is normal with no wall motion abnormalities and his troponin only went to 143. We will continue his medication with Ranexa, Imdur, Plavix, and aggressive secondary risk factor treatment. (2) Essential hypertension: PLAN: Blood pressure appears to be adequately controlled on his current medical therapy. (3) Anticoagulant long-term use: PLAN: The patient is on Eliquis long-term for his atrial fibrillation. The patient's dose will need to be decreased to 2.5 mg twice daily next year when heturns 80. (4) Atrial fibrillation with RVR: PLAN: Currently the patient is sinus rhythm he is on amiodarone 100 mg daily andEliquis long-term. (5) Atherosclerotic heart disease of [place] coronary artery without angina pectoris: QUALIFIERS: [place] vs. transplanted heart: [place] heart QualifiedCode(s): I25.10 - Atherosclerotic heart disease of [place] coronary artery without angina pectoris PLAN: The patient has diffuse moderate LAD and circumflex disease and an occluded right coronary with collateral flow. He should be continued on the same meds as listed above. Secondary risk factors need to be strictly controlled as best as possible. PLAN: Plan From a cardiovascular standpoint the patient can be discharged to home. He should be continued on his CPAP and his medical therapy is currently tolerating. The patient should follow-up in the [facility] office with one of the advanced practitioners in approximately 2 weeks. We will reevaluate his response to the anti-ischemic medical regimen and his blood pressure control at that time. Charges/Coding Visit Charges Inpatient E&M: 19844 Subs Hosp L2 11/13/23 0746 <Electronically signed by Suzie Ashton MD> Cosigner Signature (if applicable): CC: ~ Signed [facility] Work Phone: 1(639) 556-550402-13-2024 Progress note Author Js Lee [facility] November 12, 2023 3:36pm Note Date/Time November 12, 2023 12:18pm [facility] Medical Records Department [address] [place] [id number] Progress Note - Hospitalist 11/12/23 1217 MR#: [id number] Acct: [id number] Name: MEGAN GIMENEZ Rep #:[id number] : 1945 78 From: Js valera DO PCP: Dr. Jayme Yang MD Status:ADM I NO Location: [place] [address] Reason for Visit Reason for Visit: Diagnoses Hypokalemia (11/11/23) Essential (primary) hypertension (11/11/23) Non-ST elevation (NSTEMI) myocardial infarction (11/11/23) Unspecified atrial fibrillation (11/11/23) jail (current) use of anticoagulants (11/11/23) Other specified postprocedural states (11/11/23) Subjective Subjective Patient admitted yesterday evening for acute onset chest pain at rest with knownsignificant cardiac history. Patient was seen by cardiology this morning prior to my interview. Cardiology noted that patient had significant comorbidities and it was unclear if his current presentation was secondary to cardiac chest pain, recommended medical therapy with no need for further workup with stress testing or heart catheterization. When I saw the patient, he was standing at the edge of the bed in no acute distress. Denied any chest pain this morning, states that he feels back to his baseline. He did reiterate to me that chest pain yesterday evening felt like he was dying, but he is happy that he has returned to his baseline today. He denies any other acute pain or discomfort. No other acute concerns at this time. Objective Data Objective Data Vital Signs: Vital Signs Temp Pulse Resp BP Pulse Ox O2 Del Method O2 Flow Rate 97.4 F L 81 18 183/101 H 92 Room Air 3 11/12/23 09:45 11/12/23 09:45 11/12/23 09:45 11/12/23 09:45 11/12/23 09:45 11/12/23 09:45 11/12/23 08:11 Oxygen Flow Rate (L/min) 3 Oxygen Delivery Method Room Air Weight: 99.5 kg Body Mass Index (BMI) 34.3 Intake & Output: Intake and Output for Last 24 Hours 11/10/23 11/11/23 11/12/23 23:59 23:59 23:59 Intake Total 550 / 550 100 / 100 Balance 550 / 550 100 / 100 Lab / Micro Data 11/12/23 08:36 11/12/23 08:36 Labs: Laboratory Results - last 24 hr 11/11/23 19:54: WBC 7.0, RBC 4.09 L, Hgb 12.5 L, Hct 38.6 L, MCV 94.4 H, MCH 30.6, MCHC 32.4, RDW Std Deviation 53.4 H, RDW Coeff of Azeem 15.3 H, Plt Count 155, MPV 11.2, Immature Gran % (Auto) 0.300, Neut % (Auto) 52.3, Lymph % (Auto) 32.6, [place] % (Auto) 11.6 H, Eos % (Auto) 2.9, Baso % (Auto) 0.3, Absolute Neuts (auto) 3.7, Absolute Lymphs (auto) 2.28, Nucleated RBC % 0, Sodium 144, Potassium 3.4 L, Chloride 111 H, Carbon Dioxide 28.0, Anion Gap 5, BUN 16, Creatinine 1.43 H, Estim Creat Clear Calc 47.81, Est GFR (MDRD) Af Amer 61, Est GFR (MDRD) Non-Af 51 L, BUN/Creatinine Ratio 11.2, Glucose 221 H, Calcium 9.1, Magnesium 1.9, Troponin I High Sens 23 11/11/23 22:40: Troponin I High Sens 53, Triglycerides 255 H, Cholesterol 148, LDL Cholesterol 64, VLDL Cholesterol 51 H, HDL Cholesterol 33 L 11/12/23 02:20: Troponin I High Sens 146 H* 11/12/23 08:36: WBC 5.8, RBC 3.80 L, Hgb 11.8 L, Hct 36.0 L, MCV 94.7 H, MCH 31.1, MCHC 32.8, RDW Std Deviation 54.9 H, RDW Coeff of Azeem 15.7 H, Plt Count 166, MPV 11.4, Sodium 145, Potassium 3.8, Chloride 113 H, Carbon Dioxide 29.0, Anion Gap 3 L, BUN 16, Creatinine 1.27, Estim Creat Clear Calc 53.01, Est GFR (MDRD) Af Amer 70, Est GFR (MDRD) Non-Af 58 L, BUN/Creatinine Ratio 12.6, Glucose 124 H, Calcium 9.4 Micro: Microbiology 11/11/23 20:20 Mucosa - Nose SARS-CoV-2, Influenza & RSV (PCR) - Final Radiography Diagnostic Testing: Radiology Impression Chest X-Ray 11/11/23 20:35 IMPRESSION: No radiographic evidence of acute cardiopulmonary disease. Electronically Signed: Graham Alfaro MD at 21:01 EST , Rhythm Strip Rhythm Strip: Sinus Rhythm Rate: 65 Physical Exam Const alert, oriented x3 and no apparent distress Constitutional Narrative: Elderly male, obese, chronically ill-appearing, otherwise standing comfortably at edge of bed, conversing normally, no acute distress. General Appearance: cooperative and comfortable HEENT normocephalic, head/scalp atraumatic, hearing grossly normal bilaterally, nasal mucous membranes and turbinates normal and moist oral mucous membranes Eyes PERRL, EOMs intact bilaterally and conjunctivae normal Neck full ROM, no lymphadenopathy and supple Lymph Lymphatic: no lymphadenopathy noted Chest inspection of chest normal Resp normal respiratory effort and no use of accessory muscles Resp Narrative: Breathing comfortably on 2 L nasal cannula. Mildly decreased breath sounds bilaterally throughout, no wheezing or crackles noted. Cardio regular rate, regular rhythm, no murmurs and peripheral pulses 2+ throughout GI normal to inspection, nondistended, normoactive bowel sounds, soft to palpation,non-tender and non-distended Back/Spine normal ROM Extremity normal to inspection, full ROM and no pedal edema Skin no rashes or lesions noted Neuro moves all extremities and no focal motor deficits Speech: speech normal Psych mental status grossly normal Assessment & Plan Assessment/Plan (1) Chest pain: QUALIFIERS: Chest pain type: unspecified Qualified Code(s): R07.9- Chest pain, unspecified (2) History of coronary artery disease: PLAN: Plan Patient is a 78-year-old male who presented to [facility] ED on 11/11/2023 with chest pain. 1. Chest pain, history of CAD without stent placement Presented with abrupt onset chest pain at rest with nausea/vomiting and mild shortness of breath. EKG nonspecific. Troponins 23 > 53 > 146. Chest x-ray nonacute. Last heart cath in 10/2021 showed diffuse moderate coronary disease inLAD and circumflex and an occluded distal RCA. TTE 11/12 showed EF 55%, diastolic function indeterminate, small pericardial effusion, no significant valve disease. ? Cardiology following. Etiology of event unclear. Given patient's significantcomorbidities, plan is to treat conservatively with medical therapy. Continue home Eliquis, added Plavix and Ranexa on 11/12. Continue home beta- andrey and Imdur. Per cardiology, if patient cannot be controlled with medical therapy, will need to have discussion with patient and family regarding long-term management of his chest pain. Recommended keeping patient overnight with reevaluation on 11/13, if remains stable should be okay for discharge home. 2. Mild hypokalemia ? Potassium 3.4 on admit. Replete as needed. Chronic medical conditions: ? Obesity: BMI 34 on admit. Complicates hospital course, care and prognosis. ? Paroxysmal atrial fibrillation, history of NSVT: Continue home Eliquis, Coreg,amiodarone. ? Depression/anxiety: Continue home BuSpar and duloxetine. ? Hypertension: Continue home losartan, nitrate, hydralazine, amlodipine. ? Type 2 diabetes mellitus with neuropathy: Sliding-scale insulin while inpatient. Continue home gabapentin. ? History of prostate cancer s/p radiation, BPH with obstructive symptoms: Continue home doxazosin. ? Glaucoma: Continue home eyedrops. ? Overactive bladder: Continue home oxybutynin. ? SUPA: Continue home BiPAP. ? History of aspirin allergy: Causes mouth/tongue swelling. ? Crohn's disease: Continue infliximab on discharge. ? History of cervical spine fusion ? History of bilateral knee replacements DVT prophylaxis: Eliquis CODE STATUS: DNR CCA, DNI Expected disposition: Home, 1 to 2 days Total clinical time spent by myself addressing the patient's medical issues, reviewing all the data, and collaborating with patient's care team: 35 minutes. Charges/Coding Visit Charges Inpatient E&M: 06799 Subs Hosp L2 11/12/23 1532 <Electronically signed by Js Lee DO> Cosigner Signature (if applicable): CC: ~ Signed ADDENDUM by Dr. Js Lee DO on 11/12/23 at 1536 Addendum Patient initially admitted under observation status for chest pain. After evaluation by cardiology, recommendation was to keep patient for another 24 hours to monitor him for further episodes of chest pain in the setting of significant history of CAD being managed with medical therapy. Status change order placed to change patient to inpatient status. 11/12/23 1536<Electronically signed by Js Lee DO> Cosigner Signature (if applicable): cc: ~* Signed [facility] Work Phone: 1(273) 826-344602-13-2024 Consult note Author Suzie Ashton [facility] November 12, 2023 8:14am Note Date/Time November 12, 2023 7:54am [facility] Medical Records Department [address] [place] [address] Consultation - Cardiology 11/12/23 0754 MR#: [id number] Acct: [id number] Name: MEGAN GIMENEZ Rep #:[id number] : 1945 78 From: Suzie Ashton MD PCP: Dr. Jayme Yang MD Status:ADM I NO Location: [place] [id number] Assessment & Plan Assessment/Plan (1) NSTEMI, initial episode of care: PLAN: The patient's enzymes troponin high-sensitivity is 143. His EKG is not definitive for an acute coronary ischemic event. It is uncertain what happened at his home when he had his near syncopal spell with the sudden lower thoracic chest symptoms radiating up and down both arms causing his arms to be extremely heavy and him to nearly pass out. He was seated in a chair and did not fall over or slump over. The patient has known coronary disease that is diffuse moderate in the LAD and circumflex and an occluded distal right coronary artery. He had an abnormal stress test in October 2021 that led to the catheterizationdescribed. Given the patient's significant comorbidities and overall general medical condition I feel that we should treat this conservatively with medical therapy. He is allergic to aspirin with oral pharyngeal swelling. And he is tolerating Eliquis for his atrial fibrillation. I would recommend we add Plavix and Ranexato his medical regimen. The patient should be continued on his beta-andrey andImdur. I do not feel that a pharmacologic nuclear stress test would be of benefit in this given situation as we already know was going to be abnormal from his previous stress test in October 2021. (2) History of coronary artery disease: PLAN: Please see the cath report described above in the HPI. The patient has diffuse moderate disease in the left system and an occluded right coronary artery. My impression is that should be treated medically I do not feel that he is acandidate for aggressive invasive evaluation and/or therapy. If we cannot control him with medical therapy will need to have a discussion with the family concerning long- term management and how aggressive they want to be. (3) Chronic anticoagulation: PLAN: The patient should be continued on long-term anticoagulation with Eliquis due to his paroxysmal atrial fibrillation. He remains in sinus rhythm while he is hospitalized here. (4) History of left heart catheterization (LHC): PLAN: Left heart catheterization as described above. (5) Atrial fibrillation with RVR: PLAN: The patient has a history of paroxysmal atrial fibrillation with rapid ventricular response he is currently medicated with amiodarone and Coreg. (6) Essential hypertension: PLAN: The patient's blood pressure is elevated he is on significant medical regiment and reports that this is consistent with whitecoat syndrome in the past. I recommend he continue his same medical regiment as documented. PLAN: Plan 1. Cancel pharmacologic stress test. The risk outweighs the benefit to be gained from this information given the patient's comorbid status. 2. Intensify anti-ischemic medical regimen by adding Ranexa and Plavix. Monitor him closely for bleeding and if any nuisance bleeding occurs the Plavix should be discontinued. Continue the Eliquis. 3. We will reevaluate the situation in 24 hours and if he continues to have symptoms would consider revisiting invasive evaluation. 4. Consider palliative care consult. I will defer this to the primary service. HPI Consult Data Date of Consult: 11/12/23 HPI Narrative Reason for Consultation: Chest Symptoms with positive Troponin HPI Narrative: MEGAN GIMENEZ, is a 78 M who presents with a history of chest discomfort described as sudden onset burning radiating from his lower thorax up into his chest. He reports that this lasted off and on for couple hours and occurred after he was eating and sitting in the chair. He does not remember if this is like what he had prior to his stress test and catheterization in spring 2021. His troponins were positive at 146 after the first 2 were 23 and 53. His EKG shows sinus rhythm and cannot rule out an old inferior and old anterior DC. Thepatient has a history of paroxysmal atrial fibrillation and aortic stenosis by echo. He had a pharmacologic stress test October 2021 which showed inferior and lateral ischemic changes. A subsequent catheterization revealed 50 to 60% LAD disease the circumflex OM branch had a 60 to 70% stenosis in the right coronary artery was totally occluded and fills via collateral flow distally. The patient was treated medically due to the diffuse nature of the disease process, the chronic total obstruction of his right, and the fact he has a oskar cayetano aspirin allergy with significant mouth swelling. The patient also reports that as this started that he thought he was going to pass out both of his arms got very heavy and weak and then that passed. He is not certain what his atrialfibrillation feels like but he does not think that he was in atrial fibs at thistime. His EKGs here in the hospital have shown sinus rhythm. The patient does report that he chronically hurts all over. The patient now reports that he has some residual soreness in his chest. He wasexamined down in the stress lab prior to starting a pharmacologic stress test. The patient is tolerating his Eliquis denies any bleeding issues. He does not know if he is on Plavix or not and his home environment. But it is listed on his medication sheet and is should be continued as long as he is having no bleeding issues. I do not feel that a pharmacologic stress test would be of much benefit as we know it is going to be abnormal from the old one. And given his overall comorbidities I feel that the appropriate treatment would be do everything possible to treat this medically to control his symptoms. As to try and do percutaneous revascularization are coronary bypass graft surgery in this given situation would be fraught with complications. [facility] Medical History Abnormal stress test Acute bronchitis with bronchospasm Acute respiratory insufficiency Anticoagulant long-term use Anxiety Aortic stenosis Arthralgia of foot, left Arthralgia of right knee Arthritis Asthma Asymptomatic hypertensive urgency Atherosclerotic heart disease of [place] coronary artery without angina pectoris Atrial fibrillation with RVR Back pain BiPAP (biphasic positive airway pressure) dependence Bronchitis Cancer of prostate with intermediate recurrence risk (stage T2b-c or Liza 7 or PSA 10-20) Cardiology follow-up encounter Closed head injury Colitis Concussion COVID-19 virus infection CPAP (continuous positive airway pressure) dependence Dementia Depression Diverticula of colon DM2 (diabetes mellitus, type 2) Dyspnea on exertion Dysuria Effusion, left knee Effusion, right knee Essential hypertension Excessive bleeding Fatigue Former smoker Gastric reflux Gout flare Heart failure High cholesterol History of atrial fibrillation History of echocardiogram History of edema History of renal disease History of steroid therapy History of stress test HTN (hypertension) Hyperlipidemia Hypertensive urgency Hypokalemia Inability to walk Inflammatory bowel disease Injury of head and neck Intractable pain Kidney stones Loss of consciousness LVH (left ventricular hypertrophy) Nonrheumatic aortic (valve) stenosis NSVT (nonsustained ventricular tachycardia) SUPA (obstructive sleep apnea) Paroxysmal atrial fibrillation Pneumonia Pneumonia Prostate cancer Prostate cancer Pulmonary hypertension Renal colic on left side Rheumatoid aortitis Rheumatoid arthritis Rhinovirus Rib pain Sepsis Severe acute respiratory syndrome coronavirus 2 (SARS-CoV-2) infection ruled out Severe sepsis Sinus drainage Sleep apnea SOB (shortness of breath) Syncope and collapse Ureterolithiasis Wears dentures Wears glasses Wears hearing aid White coat syndrome without diagnosis of hypertension Home Medications glimepiride 2 mg tablet 2 mg PO QHS diabetes 01/22/18 [History Last Taken 09/19/23] duloxetine 60 mg capsule,delayed release (Cymbalta) 60 mg PO DAILY depression 06/02/19 [History Last Taken 09/20/23] buspirone 7.5 mg tablet 7.5 mg PO BID depression/anxiety 04/12/21 [History Last Taken 09/20/23] latanoprost 0.005 % eye drops 1 drp LEFT EYE QPM eye health 12/22/21 [History Last Taken 03/20/23] gabapentin 600 mg tablet 300 mg PO BID neuropathy 01/26/22 [History Last Taken 11/11/23 17:00 300 mg] carvedilol 25 mg tablet 25 mg PO BID HEART 10/02/22 [History Last Taken 09/20/23] losartan 100 mg tablet 100 mg PO DAILY BLOOD PRESSURE 10/02/22 [History Last Taken 09/20/23] oxybutynin chloride 10 mg tablet,extended release 24 hr 10 mg PO DAILY bladder 10/04/22 [History Last Taken 09/20/23] timolol maleate 0.5 % eye drops 1 drp LEFT EYE DAILY EYE HEALTH 10/04/22 [History Last Taken 03/20/23] apixaban 5 mg tablet 5 mg PO BID afib #180 tabs 12/03/22 [Rx Last Taken 09/20/23] rosuvastatin 20 mg tablet 10 mg PO DAILY cholesterol 03/21/23 [History Last Taken 09/20/23] fluticasone furoate 200 mcg-vilanterol 25 mcg/dose inhalation powder (Breo Ellipta) 1 inh inhalation QDAY #60 ea 04/04/23 [Rx Last Taken 09/20/23] infliximab 100 mg intravenous solution (Remicade) 100 mg IV .Q7W crohns 05/24/23[History Last Taken 09/04/23] hydralazine 100 mg tablet 100 mg PO TID BLOOD PRESSURE #270 tabs 06/14/23 [Rx Last Taken 09/20/23] isosorbide mononitrate 60 mg tablet,extended release 24 hr 60 mg PO BID BLOOD PRESSURE #90 tabs 07/25/23 [Rx Last Taken 09/20/23] montelukast 10 mg tablet 10 mg PO QPM #30 tabs 07/25/23 [Rx Last Taken 09/20/23] amiodarone 200 mg tablet See Rx Instructions .Route .COMPLEX #45 TABLETS 08/28/23 [Rx Last Taken 09/20/23] potassium chloride 10 mEq tablet,extended release(part/cryst) 10 meq PO DAILY supplement 09/04/23 [History Last Taken 09/20/23] guaifenesin 1,200 mg tablet, extended release 12 hr (Mucus Relief ER) 1,200 mg PO BID #20 tabs 09/05/23 [Rx Last Taken 09/20/23] amlodipine 10 mg tablet 5 mg PO DAILY 09/20/23 [History Last Taken 09/20/23] quetiapine 25 mg tablet 25 mg PO DAILY 09/20/23 [History Last Taken 09/20/23] levofloxacin 750 mg tablet 750 mg PO Q48H #4 tabs 09/24/23 [Rx Last Taken Unknown] doxazosin 4 mg tablet See Rx Instructions .Route .COMPLEX #60 TABLETS 10/14/23 [Rx Last Taken Unknown] phenazopyridine 100 mg tablet 100 mg PO TID PRN pain #30 tabs 11/08/23 [Rx Last Taken Unknown] quetiapine 50 mg tablet 50 mg PO 11/11/23 [History Last Taken Unknown] Allergy/AdvReac Type Severity Reaction Status Date / Time aspirin Allergy Severe Mouth Verified 10/16/23 08:09 swelling donepezil [From Aricept] AdvReac Severe Swelling Verified 10/16/23 08:09 minoxidil AdvReac Severe swelling Verified 10/16/23 08:09 morphine AdvReac Severe UNABLE TO Verified 10/16/23 08:09 URINATE Family History Mother Heart disease Diabetes Father Heart disease Lung disease Brother Heart disease Lung disease Cancer prostate, pancreatic Sister Diabetes Cancer uterine Surgical History Cervical vertebral fusion History of back surgery History of bilateral knee replacement History of cardiac catheterization History of left heart catheterization (LHC) (~12/22/21) History of prostate biopsy History of removal of cyst Hx of colectomy Hx of cystoscopy Hx of surgical procedure Social History Smoking Status: Former smoker how long ago did patient quit smokin, 2ppd second hand exposure: Yes alcohol intake: never substance use type: does not use caffeine: Yes Type: coffee Number of servings: 2 ROS Constitutional Constitutional: Reports as per HPI Eyes Eyes: Reports systems reviewed and no addt'l complaints, except as documented ENT HEENT: Reports systems reviewed and no addt'l complaints, except as documented Cardiovascular Cardiovascular: Reports as per HPI Respiratory/Chest Respiratory/Chest: Reports as per HPI Gastrointestinal Gastrointestinal: Reports as per HPI Genitourinary Genitourinary: Reports systems reviewed and no addt'l complaints, except as documented Musculoskeletal Musculoskeletal: Reports as per HPI Integumentary Integumentary: Reports systems reviewed and no addt'l complaints, except as documented Neurologic Neurologic: Reports as per HPI and other Details: Very hard of hearing. Psychiatric Psychiatric: Reports systems reviewed and no addt'l complaints, except as documented Endocrine Endocrinology: Reports systems reviewed and no addt'l complaints, except as documented Hematologic/Lymphatic Hematologic/Lymphatic: Reports systems reviewed and no addt'l complaints, exceptas documented Allergic/Immunologic Allergic/Immunologic: Reports as per HPI Physical Exam Const oriented x3 HEENT normocephalic Eyes EOMs intact bilaterally Neck no JVD and no carotid bruits Chest inspection of chest normal Resp normal respiratory effort Auscultation: crackles bilateral lower Cardio regular rate, regular rhythm, S1 normal heart sound, S2 normal heart sound, no rub and no gallops Heart Sounds: murmur systolic II/ soft right sternal border Bruits: Negative for carotid bruit GI soft to palpation and non-tender Extremity General Extremity: edema bilateral lower extremity Details: trace Skin no rashes or lesions noted Neuro Neuro Narrative: Hard of hearing Psych mental status grossly normal Risk Stratification Risk Stratification Applicable: Yes Age >/= 65: Yes >/= 3 CAD Risk Factors (HTN, HLD, DM, family hx of CAD, or current smoker): Yes Aspirin Use in the Past 7 Days: No Severe Angina (>/= episodes in 24 hours): Yes EKG ST Changes >/= 0.5mm: No Positive Cardiac Marker: Yes LEO Risk Stratification Score: 4 LEO % Risk: 20% Risk Charges/Coding Visit Charges Inpatient E&M: 79019 Init Hosp L3 Objective Data Vital Signs: Vital Signs Temp Pulse Resp BP Pulse Ox O2 Del Method O2 Flow Rate 98.1 F 68 16 162/83 H 94 Nasal Cannula 2 11/12/23 05:08 11/12/23 06:23 11/12/23 05:08 11/12/23 06:23 11/12/23 05:08 11/12/23 05:11 11/12/23 05:11 Oxygen Flow Rate (L/min) 2 Oxygen Delivery Method Nasal Cannula Weight: 219 lb 5.759 oz Body Mass Index (BMI) 34.3 Intake & Output: Intake and Output for Last 24 Hours 11/10/23 11/11/23 11/12/23 23:59 23:59 23:59 Intake Total 550 / 550 100 / 100 Balance 550 / 550 100 / 100 Lab / Micro Data 11/11/23 19:54 11/11/23 19:54 Labs: Laboratory Results - last 24 hr 11/11/23 19:54: WBC 7.0, RBC 4.09 L, Hgb 12.5 L, Hct 38.6 L, MCV 94.4 H, MCH 30.6, MCHC 32.4, RDW Std Deviation 53.4 H, RDW Coeff of Azeem 15.3 H, Plt Count 155, MPV 11.2, Immature Gran % (Auto) 0.300, Neut % (Auto) 52.3, Lymph % (Auto) 32.6, [place] % (Auto) 11.6 H, Eos % (Auto) 2.9, Baso % (Auto) 0.3, Absolute Neuts (auto) 3.7, Absolute Lymphs (auto) 2.28, Nucleated RBC % 0, Sodium 144, Potassium 3.4 L, Chloride 111 H, Carbon Dioxide 28.0, Anion Gap 5, BUN 16, Creatinine 1.43 H, Estim Creat Clear Calc 47.81, Est GFR (MDRD) Af Amer 61, Est GFR (MDRD) Non-Af 51 L, BUN/Creatinine Ratio 11.2, Glucose 221 H, Calcium 9.1, Magnesium 1.9, Troponin I High Sens 23 11/11/23 22:40: Troponin I High Sens 53, Triglycerides 255 H, Cholesterol 148, LDL Cholesterol 64, VLDL Cholesterol 51 H, HDL Cholesterol 33 L 11/12/23 02:20: Troponin I High Sens 146 H* Micro: Microbiology 11/11/23 20:20 Mucosa - Nose SARS-CoV-2, Influenza & RSV (PCR) - Final Rhythm Strip Rhythm Strip: Sinus Rhythm Rate: 65 Cardiology Labs/Tests 11/11/23 19:54: WBC 7.0, RBC 4.09 L, Hgb 12.5 L, Hct 38.6 L, MCV 94.4 H, MCH 30.6, MCHC 32.4, Plt Count 155, MPV 11.2, Immature Gran % (Auto) 0.300, Neut % (Auto) 52.3, Lymph % (Auto) 32.6, [place] % (Auto) 11.6 H, Eos % (Auto) 2.9, Baso %(Auto) 0.3, Absolute Neuts (auto) 3.7, Nucleated RBC % 0, Sodium 144, Potassium 3.4 L, Chloride 111 H, Carbon Dioxide 28.0, Anion Gap 5, BUN 16, Creatinine 1.43H, Est GFR (MDRD) Af Amer 61, Est GFR (MDRD) Non-Af 51 L, BUN/Creatinine Ratio 11.2, Glucose 221 H, Calcium 9.1, Magnesium 1.9 11/11/23 22:40: Triglycerides 255 H, Cholesterol 148, LDL Cholesterol 64, VLDL Cholesterol 51 H, HDL Cholesterol 33 L Rhythm: EKG: ECHO: Stress Test: Cardiac Cath: PCI: CT Surgery: Holter monitor: EPS: PPM: CXR: Chest CT Scan: Radiography Diagnostic Testing: Radiology Impression Chest X-Ray 11/11/23 20:35 IMPRESSION: No radiographic evidence of acute cardiopulmonary disease. Electronically Signed: Graham Alfaro MD at 21:01 EST , 11/12/23 0814 <Electronically signed by Suzie Ashton MD> Cosigner Signature (if applicable): CC: TERESE Jefferson; TERESE Chavez; Maxine Miguel MD; Dr. Arnaud Watkins MD; Dr. Laurita White MD; Dr. Deng Vieira MD; Dr. Ronaldo Mishra MD; Dr. Laureano Lucero DO; Dr. Mumtaz Elziondo MD; Dr. Rico Parish MD; Dr. Makenna Naqvi MD; Dr. Suzie Ashton MD; Dr. Myrna Hendrix MD; Dr. Rachid Escobedo MD; Dr. Carlie MD; Dr. Jayme Lino MD; Dr. Jayme Yang MD; Dr. Domenico Ordaz MD; Dr. Channing Maldonado MD; Dr. Nabil Marie MD; Dyan Oviedo; ADRY Sevilla~ [facility] Work Phone: [phone] History and physical note Author [facility] November 12, 2023 6:45am Note Date/Time November 11, 2023 10:32pm [facility] Medical Records Department [address] [place] [id number] H&P Exam - Hospitalist 11/11/234 MR#: [id number] Acct: [id number] Name: MEGAN GIMENEZ Rep #:[id number] : 1945 78 From: Laureano Hampton DO PCP: Dr. Jayme Yang MD Status:ADM I NO Location: [place] [address] HPI - General General Date of Admission: 11/11/23 Date of Service: 11/11/23 Chief Complaint: Chest pain HPI Narrative MEGAN GIMENEZ, is a 78 M with a past medical history of essential hypertension, obesity; with BMI 35.4 this admission, obstructive sleep apnea; on BiPAP, history of pulmonary hypertension, remote history of tobacco abuse (quit 1975), paroxysmal atrial fibrillation; on Eliquis and amiodarone, history of NSVT, history of rheumatoid aortitis, history of allergy to aspirin; which causes mouth/tongue swelling, diabetes mellitus type 2; of unknown control, history of prostate cancer; s/p 20 radiation treatments, history Crohn's disease; on infliximab, chronic gout, history of nonrheumatic aortic stenosis, mild asthma, history of renal calculi, history of colonic diverticulosis, history of colectomy, history of pneumonia, history of COVID-19 (July 2023), generalized anxiety with depression, glaucoma, osteoarthritis; s/p cervical fusion and bilateral total knee replacements and history of coronary artery disease; without stent placement with history of left heart catheterization on December 22, 2021 who presents to [facility] ER complaining of chest pain. Mr. Gimenez reports his symptoms began earlier in the day on 11/11/2023 while he was at rest with the abrupt onset of chest pain while he was sitting in his chair. He describes the chest pain as left-sided, anterior, radiating up into his shoulders and both arms with a heavy sensation with nothing seeming to make the pain better or worse. He also admits to associated shortness of breath slightly worse than his baseline. He admits to nausea with vomiting x 2 with bilious emesis with no blood seen and no related abdominal pain. He does admit to intermittent lightheadedness and dizziness and he claimshe is chest pain-free at this time. In the ER he was noted to have a positive third troponin of 146 pg/mL and a nonspecific EKG consistent with a suspected NSTEMI with laboratory evidence of mild hypokalemia of 3.4 mmol/L present on admission and he was then admitted to the PCU for ongoing care for status expected to be greater than 48 hours. [facility] Medical History (Updated 11/12/23 @ 03:[address] Laureano Lucero, ) Abnormal stress test Acute bronchitis with bronchospasm Acute respiratory insufficiency Anticoagulant long-term use Anxiety Aortic stenosis Arthralgia of foot, left Arthralgia of right knee Arthritis Asthma Asymptomatic hypertensive urgency Atherosclerotic heart disease of [place] coronary artery without angina pectoris Atrial fibrillation with RVR Back pain BiPAP (biphasic positive airway pressure) dependence Bronchitis Cancer of prostate with intermediate recurrence risk (stage T2b-c or [place] 7 or PSA 10-20) Cardiology follow-up encounter Closed head injury Colitis Concussion COVID-19 virus infection CPAP (continuous positive airway pressure) dependence Dementia Depression Diverticula of colon DM2 (diabetes mellitus, type 2) Dyspnea on exertion Dysuria Effusion, left knee Effusion, right knee Essential hypertension Excessive bleeding Fatigue Former smoker Gastric reflux Gout flare Heart failure High cholesterol History of atrial fibrillation History of echocardiogram History of edema History of renal disease History of steroid therapy History of stress test HTN (hypertension) Hyperlipidemia Hypertensive urgency Hypokalemia Inability to walk Inflammatory bowel disease Injury of head and neck Intractable pain Kidney stones Loss of consciousness LVH (left ventricular hypertrophy) Nonrheumatic aortic (valve) stenosis NSVT (nonsustained ventricular tachycardia) SUPA (obstructive sleep apnea) Paroxysmal atrial fibrillation Pneumonia Pneumonia Prostate cancer Prostate cancer Pulmonary hypertension Renal colic on left side Rheumatoid aortitis Rheumatoid arthritis Rhinovirus Rib pain Sepsis Severe acute respiratory syndrome coronavirus 2 (SARS-CoV-2) infection ruled out Severe sepsis Sinus drainage Sleep apnea SOB (shortness of breath) Syncope and collapse Ureterolithiasis Wears dentures Wears glasses Wears hearing aid White coat syndrome without diagnosis of hypertension Home Medications glimepiride 2 mg tablet 2 mg PO QHS diabetes 01/22/18 [History Last Taken 09/19/23] duloxetine 60 mg capsule,delayed release (Cymbalta) 60 mg PO DAILY depression 06/02/19 [History Last Taken 09/20/23] buspirone 7.5 mg tablet 7.5 mg PO BID depression/anxiety 04/12/21 [History Last Taken 09/20/23] latanoprost 0.005 % eye drops 1 drp LEFT EYE QPM eye health 12/22/21 [History Last Taken 03/20/23] gabapentin 600 mg tablet 300 mg PO BID neuropathy 01/26/22 [History Last Taken 11/11/23 17:00 300 mg] carvedilol 25 mg tablet 25 mg PO BID HEART 10/02/22 [History Last Taken 09/20/23] losartan 100 mg tablet 100 mg PO DAILY BLOOD PRESSURE 10/02/22 [History Last Taken 09/20/23] oxybutynin chloride 10 mg tablet,extended release 24 hr 10 mg PO DAILY bladder 10/04/22 [History Last Taken 09/20/23] timolol maleate 0.5 % eye drops 1 drp LEFT EYE DAILY EYE HEALTH 10/04/22 [History Last Taken 03/20/23] apixaban 5 mg tablet 5 mg PO BID afib #180 tabs 12/03/22 [Rx Last Taken 09/20/23] rosuvastatin 20 mg tablet 10 mg PO DAILY cholesterol 03/21/23 [History Last Taken 09/20/23] fluticasone furoate 200 mcg-vilanterol 25 mcg/dose inhalation powder (Breo Ellipta) 1 inh inhalation QDAY #60 ea 04/04/23 [Rx Last Taken 09/20/23] infliximab 100 mg intravenous solution (Remicade) 100 mg IV .Q7W crohns 05/24/23[History Last Taken 09/04/23] hydralazine 100 mg tablet 100 mg PO TID BLOOD PRESSURE #270 tabs 06/14/23 [Rx Last Taken 09/20/23] isosorbide mononitrate 60 mg tablet,extended release 24 hr 60 mg PO BID BLOOD PRESSURE #90 tabs 07/25/23 [Rx Last Taken 09/20/23] montelukast 10 mg tablet 10 mg PO QPM #30 tabs 07/25/23 [Rx Last Taken 09/20/23] amiodarone 200 mg tablet See Rx Instructions .Route .COMPLEX #45 TABLETS 08/28/23 [Rx Last Taken 09/20/23] potassium chloride 10 mEq tablet,extended release(part/cryst) 10 meq PO DAILY supplement 09/04/23 [History Last Taken 09/20/23] guaifenesin 1,200 mg tablet, extended release 12 hr (Mucus Relief ER) 1,200 mg PO BID #20 tabs 09/05/23 [Rx Last Taken 09/20/23] amlodipine 10 mg tablet 5 mg PO DAILY 09/20/23 [History Last Taken 09/20/23] quetiapine 25 mg tablet 25 mg PO DAILY 09/20/23 [History Last Taken 09/20/23] levofloxacin 750 mg tablet 750 mg PO Q48H #4 tabs 09/24/23 [Rx Last Taken Unknown] doxazosin 4 mg tablet See Rx Instructions .Route .COMPLEX #60 TABLETS 10/14/23 [Rx Last Taken Unknown] phenazopyridine 100 mg tablet 100 mg PO TID PRN pain #30 tabs 11/08/23 [Rx Last Taken Unknown] quetiapine 50 mg tablet 50 mg PO 11/11/23 [History Last Taken Unknown] Allergy/AdvReac Type Severity Reaction Status Date / Time aspirin Allergy Severe Mouth Verified 10/16/23 08:09 swelling donepezil [From Aricept] AdvReac Severe Swelling Verified 10/16/23 08:09 minoxidil AdvReac Severe swelling Verified 10/16/23 08:09 morphine AdvReac Severe UNABLE TO Verified 10/16/23 08:09 URINATE Family History Mother Heart disease Diabetes Father Heart disease Lung disease Brother Heart disease Lung disease Cancer prostate, pancreatic Sister Diabetes Cancer uterine Surgical History Cervical vertebral fusion History of back surgery History of bilateral knee replacement History of cardiac catheterization History of left heart catheterization (LHC) (~12/22/21) History of prostate biopsy History of removal of cyst Hx of colectomy Hx of cystoscopy Hx of surgical procedure Social History Smoking Status: Former smoker how long ago did patient quit smokin, 2ppd second hand exposure: Yes alcohol intake: never substance use type: does not use caffeine: Yes Type: coffee Number of servings: 2 ROS ROS Narrative Review of systems: Constitutional: No recent fevers or chills. He has had malaise that seemed worse yesterday. EYE: No visual complaints, Discharge from eyes discharge from eyes or pain. ENT: No difficulty swallowing or sore throat. CV: Patient admits to chest pain as per HPI. Respiratory: Patient admits to mild shortness of breath as per HPI. GI: He had nausea with some vomiting but denies abdominal pain. : No frequency dysuria or hematuria. Musculoskeletal: No recent trauma. No pains. No swelling. Skin: No rash. Non-diaphoretic. Neuro: No weakness or numbness. Endocrine: No polyuria, polydipsia or polyphagia. Psychiatric: Patient denies uncontrolled depression or anxiety. 14 point review systems otherwise negative except for positives noted above in HPI. Vital Signs Vital Signs Vital Signs: 11/11/23 19:45 11/11/23 19:48 11/11/23 19:50 Temperature 96.8 F L Temperature Source Temporal Pulse Rate 101 H 94 Respiratory Rate 23 H 23 H Respiratory Pattern Normal Blood Pressure 168/130 H 186/106 H Blood Pressure Mean 142 132 Pulse Ox 86 92 Oxygen Delivery Method Room Air Nasal Cannula Oxygen Flow Rate (L/min) 2 11/11/23 20:19 11/11/23 20:17 Temperature Temperature Source Pulse Rate 104 H Respiratory Rate 24 H Respiratory Pattern Tachypnea Blood Pressure Blood Pressure Mean Pulse Ox Oxygen Delivery Method Room Air Oxygen Flow Rate (L/min) Weight Weight: 226 lb 3.108 oz Body Mass Index (BMI) 35.4 Physical Exam Const alert, oriented x3 and no apparent distress Constitutional Narrative: Patient is obese nontoxic in appearance. General Appearance: cooperative HEENT normocephalic, head/scalp atraumatic, hearing grossly normal bilaterally and moist oral mucous membranes Eyes PERRL, EOMs intact bilaterally and conjunctivae normal Neck no lymphadenopathy and supple Resp normal respiratory effort, no retractions and no use of accessory muscles Resp Narrative: Mild expiratory wheezing noted on exam. Auscultation: wheezes Cardio regular rate and regular rhythm Cardio Narrative: Patient has very slight systolic murmur. GI normal to inspection, nondistended, normoactive bowel sounds, soft to palpation and non-tender Extremity normal to inspection and full ROM Skin Skin Narrative: Patient has no evidence of rash or abscess at this time. Neuro oriented x3, CN's II-XII intact bilaterally, moves all extremities and no focal motor deficits Sensorium / Orientation: awake, alert, oriented to person, oriented to place andoriented to time Speech: speech normal Motor Exam: strength 5/5 throughout Psych Mood & Affect: anxious Results Medical Records Data Attestation: I reviewed the patient's medical records Lab / Micro Data Attestation: I reviewed the patient's lab results. 11/11/23 19:54 11/11/23 19:54 Labs: Laboratory Results - last 24 hr 11/11/23 19:54: WBC 7.0, RBC 4.09 L, Hgb 12.5 L, Hct 38.6 L, MCV 94.4 H, MCH 30.6, MCHC 32.4, RDW Std Deviation 53.4 H, RDW Coeff of Azeem 15.3 H, Plt Count 155, MPV 11.2, Immature Gran % (Auto) 0.300, Neut % (Auto) 52.3, Lymph % (Auto) 32.6, [place] % (Auto) 11.6 H, Eos % (Auto) 2.9, Baso % (Auto) 0.3, Absolute Neuts (auto) 3.7, Absolute Lymphs (auto) 2.28, Nucleated RBC % 0, Sodium 144, Potassium 3.4 L, Chloride 111 H, Carbon Dioxide 28.0, Anion Gap 5, BUN 16, Creatinine 1.43 H, Estim Creat Clear Calc 47.81, Est GFR (MDRD) Af Amer 61, Est GFR (MDRD) Non-Af 51 L, BUN/Creatinine Ratio 11.2, Glucose 221 H, Calcium 9.1, Magnesium 1.9, Troponin I High Sens 23 Micro: Microbiology 11/11/23 20:20 Mucosa - Nose SARS-CoV-2, Influenza & RSV (PCR) - Final Imaging Radiology Impression Chest X-Ray 11/11/23 20:35 IMPRESSION: No radiographic evidence of acute cardiopulmonary disease. Electronically Signed: Graham Alfaro MD at 21:01 EST , Assessment & Plan Assessment/Plan (1) NSTEMI, initial episode of care: (2) History of coronary artery disease: (3) Hypokalemia: PLAN: Plan 1. NSTEMI with Chest pain in the setting of known CAD; without stent placement with history of left heart catheterization on December 22, 2021 - Admit to PCU. Continue Plavix begun in the ER plus resume statin and add full-dose Lovenox. Serialize troponin. Check echocardiogram to evaluate left ventricular ejection fraction. Avoid aspirin as patient has listed allergy to this agent causing mouth swelling. Finally, we will consult the rn flight on-call to see this patient on-rounds in the AM for further recommendations regarding [facility] this admission with help appreciated in advance. 2. Hypokalemia of 3.4 mmol/L present on admission complicating #1 - Give supplemental potassium chloride and then recheck BMP in the a.m. to ensure improvement. 3. History of rheumatoid aortitis in the setting of known RA - Echocardiogram pending for #1. 4. Essential hypertension - Continue home medications as previous plus give as needed IV hydralazine for systolic blood pressure greater than 160 mmHg. 5. Obesity; with BMI 35.4 this admission plus obstructive sleep apnea; on BiPAP- Weight loss will be recommended. Resume BiPAP as previous. Check TSH. 6. History of pulmonary hypertension - Noted. 7. Remote history of tobacco abuse (quit 1975) - Noted. 8. Paroxysmal atrial fibrillation; on Eliquis and amiodarone - Stable. Continue home medications as previous. 9. History of NSVT - Noted. 10. History of allergy to aspirin; which causes mouth/tongue swelling - Avoid this agent as noted above. Plavix will be substituted. 11. Diabetes mellitus type 2; of unknown control - ADA diet. FSBS every 6 hours plus sliding scale insulin. Check hemoglobin A1c. 12. History of prostate cancer; s/p 20 radiation treatments - Noted. 13. Chronic gout - Stable with no evidence of acute flare. 14. History of nonrheumatic aortic stenosis - Echocardiogram pending for #1. 15. Mild asthma - Stable with mild wheezing noted on admission. Give as needednebulizers. 16. History of renal calculi - Noted. 17. History of colonic diverticulosis; s/p colectomy - Noted. 18. History of pneumonia - Noted. 19. History of COVID-19 (July 2023) - Noted. 20. Generalized anxiety with depression - Resume home regimen as previous. 21. Glaucoma - Continue eye drops. 22. Osteoarthritis; s/p cervical fusion and bilateral total knee replacements - Noted. 23. DVT prophylaxis - Patient is on full-dose Lovenox for #1. Total time: Approximately 55 minutes. Charges/Coding Visit Charges Inpatient E&M: 71589 Init Hosp L2 11/12/23 0645 <Electronically signed by Laureano Lucero DO> Cosigner Signature (if applicable): CC: Dr. Laureano Lucero DO; Dr. Jayme Yang MD~ Signed [facility] Work Phone: [phone] Discharge summary Author Ana Maria Barnhart [facility] November 11, 2023 10:11pm Note Date/Time November 11, 2023 8:15pm [facility] Medical Records Department [address] [place] [address] Emergency Department Summary 11/11/23 MR#: [id number] Acct: [id number] Name: MEGAN GIMENEZ Rep #:[id number] : 1945 78 From: Ana Maria Barnhart MD PCP: Dr. Jayme Yang MD Status:REG E R Location: ED HPI History of Present Illness Chief Complaint: Chest Pain Informant: patient and spouse/S.O. Narrative Narrative: Patient presents with chest pain. It sounds like the patient has not been feeling well for a day. It is very hardto get the detailed onset of this. He had 20 radiation treatments for prostate cancer that ended a few weeks ago. He also had COVID around Thanksgiving. He has been weak ever since this. He states he just cannot seem to get his strength back. Yesterday he slept more of the day than would be normal. But hewas not having any symptoms other than that. Today he was sitting in a chair. He states he got the onset of pain in his leftanterior chest. Just left of sternum. It radiated up to the shoulders. He states both of his arms felt just kind of heavy. He did have some shortness of breath with this that seems more than his baseline. He did vomit a couple times. No blood was seen and he has no abdominal pain. He also complained thathe was lightheaded and kind of dizzy. His symptoms are markedly improved now. It was not tearing or ripping. He was not syncopal. He never had pain in his back. No abdominal pains. His states that he has history of getting pneumonia is very easily. She isconcerned about that because she heard him cough some Patient is on and is taking his Eliquis. This is due to a history of intermittent atrial fibrillation. He is a former smoker but quit many years ago. No first- degree relative history of early heart disease although his mother had stents she lived till 97 years old. But this patient does have obesity diabetes high blood pressure and high cholesterol. [facility] Medical History (Updated 11/11/23 @ 22:[address] Ana Maria Barnhart MD) Abnormal stress test Acute bronchitis with bronchospasm Acute respiratory insufficiency Anticoagulant long-term use Anxiety Aortic stenosis Arthralgia of foot, left Arthralgia of right knee Arthritis Asthma Asymptomatic hypertensive urgency Atherosclerotic heart disease of [place] coronary artery without angina pectoris Atrial fibrillation with RVR Back pain BiPAP (biphasic positive airway pressure) dependence Bronchitis Cancer of prostate with intermediate recurrence risk (stage T2b-c or [place] 7 or PSA 10-20) Cardiology follow-up encounter Closed head injury Colitis Concussion COVID-19 virus infection CPAP (continuous positive airway pressure) dependence Dementia Depression Diverticula of colon DM2 (diabetes mellitus, type 2) Dyspnea on exertion Dysuria Effusion, left knee Effusion, right knee Essential hypertension Excessive bleeding Fatigue Former smoker Gastric reflux Gout flare Heart failure High cholesterol History of atrial fibrillation History of echocardiogram History of edema History of renal disease History of steroid therapy History of stress test HTN (hypertension) Hyperlipidemia Hypertensive urgency Hypokalemia Inability to walk Inflammatory bowel disease Injury of head and neck Intractable pain Kidney stones Loss of consciousness LVH (left ventricular hypertrophy) Nonrheumatic aortic (valve) stenosis NSVT (nonsustained ventricular tachycardia) SUPA (obstructive sleep apnea) Paroxysmal atrial fibrillation Pneumonia Pneumonia Prostate cancer Prostate cancer Pulmonary hypertension Renal colic on left side Rheumatoid aortitis Rheumatoid arthritis Rhinovirus Rib pain Sepsis Severe acute respiratory syndrome coronavirus 2 (SARS-CoV-2) infection ruled out Severe sepsis Sinus drainage Sleep apnea SOB (shortness of breath) Syncope and collapse Ureterolithiasis Wears dentures Wears glasses Wears hearing aid White coat syndrome without diagnosis of hypertension Home Medications glimepiride 2 mg tablet 2 mg PO QHS diabetes 01/22/18 [History Last Taken 09/19/23] duloxetine 60 mg capsule,delayed release (Cymbalta) 60 mg PO DAILY depression 06/02/19 [History Last Taken 09/20/23] buspirone 7.5 mg tablet 7.5 mg PO BID depression/anxiety 04/12/21 [History Last Taken 09/20/23] latanoprost 0.005 % eye drops 1 drp LEFT EYE QPM eye health 12/22/21 [History Last Taken 03/20/23] gabapentin 600 mg tablet 300 mg PO BID neuropathy 01/26/22 [History Last Taken 09/20/23] carvedilol 25 mg tablet 25 mg PO BID HEART 10/02/22 [History Last Taken 09/20/23] losartan 100 mg tablet 100 mg PO DAILY BLOOD PRESSURE 10/02/22 [History Last Taken 09/20/23] oxybutynin chloride 10 mg tablet,extended release 24 hr 10 mg PO DAILY bladder 10/04/22 [History Last Taken 09/20/23] timolol maleate 0.5 % eye drops 1 drp LEFT EYE DAILY EYE HEALTH 10/04/22 [History Last Taken 03/20/23] apixaban 5 mg tablet 5 mg PO BID afib #180 tabs 12/03/22 [Rx Last Taken 09/20/23] rosuvastatin 20 mg tablet 10 mg PO DAILY cholesterol 03/21/23 [History Last Taken 09/20/23] fluticasone furoate 200 mcg-vilanterol 25 mcg/dose inhalation powder (Breo Ellipta) 1 inh inhalation QDAY #60 ea 04/04/23 [Rx Last Taken 09/20/23] infliximab 100 mg intravenous solution (Remicade) 100 mg IV .Q7W crohns 05/24/23[History Last Taken 09/04/23] hydralazine 100 mg tablet 100 mg PO TID BLOOD PRESSURE #270 tabs 06/14/23 [Rx Last Taken 09/20/23] isosorbide mononitrate 60 mg tablet,extended release 24 hr 60 mg PO BID BLOOD PRESSURE #90 tabs 07/25/23 [Rx Last Taken 09/20/23] montelukast 10 mg tablet 10 mg PO QPM #30 tabs 07/25/23 [Rx Last Taken 09/20/23] amiodarone 200 mg tablet See Rx Instructions .Route .COMPLEX #45 TABLETS 08/28/23 [Rx Last Taken 09/20/23] potassium chloride 10 mEq tablet,extended release(part/cryst) 10 meq PO DAILY supplement 09/04/23 [History Last Taken 09/20/23] guaifenesin 1,200 mg tablet, extended release 12 hr (Mucus Relief ER) 1,200 mg PO BID #20 tabs 09/05/23 [Rx Last Taken 09/20/23] amlodipine 10 mg tablet 5 mg PO DAILY 09/20/23 [History Last Taken 09/20/23] quetiapine 25 mg tablet 25 mg PO DAILY 09/20/23 [History Last Taken 09/20/23] levofloxacin 750 mg tablet 750 mg PO Q48H #4 tabs 09/24/23 [Rx Last Taken Unknown] doxazosin 4 mg tablet See Rx Instructions .Route .COMPLEX #60 TABLETS 10/14/23 [Rx Last Taken Unknown] phenazopyridine 100 mg tablet 100 mg PO TID PRN pain #30 tabs 11/08/23 [Rx Last Taken Unknown] quetiapine 50 mg tablet 50 mg PO 11/11/23 [History Last Taken Unknown] Allergy/AdvReac Type Severity Reaction Status Date / Time aspirin Allergy Severe Mouth Verified 10/16/23 08:09 swelling donepezil [From Aricept] AdvReac Severe Swelling Verified 10/16/23 08:09 minoxidil AdvReac Severe swelling Verified 10/16/23 08:09 morphine AdvReac Severe UNABLE TO Verified 10/16/23 08:09 URINATE Family History Mother Heart disease Diabetes Father Heart disease Lung disease Brother Heart disease Lung disease Cancer prostate, pancreatic Sister Diabetes Cancer uterine Surgical History Cervical vertebral fusion History of back surgery History of bilateral knee replacement History of cardiac catheterization History of left heart catheterization (LHC) (~12/22/21) History of prostate biopsy History of removal of cyst Hx of colectomy Hx of cystoscopy Hx of surgical procedure Social History Smoking Status: Former smoker how long ago did patient quit smokin, 2ppd second hand exposure: Yes alcohol intake: never substance use type: does not use caffeine: Yes Type: coffee Number of servings: 2 ROS ROS ED ROS Narrative A complete review of systems was performed and is negative except as documented in the history of present illness. Some specific details below. Constitutional: No recent fevers or chills. He has had malaise that seemed worse yesterday than what has become chronic. EYE: No discharge, visual complaints, or pain. ENT: No difficulty swallowing. No swelling. No pain. No reflux symptoms. CV: See history of present illness. Respiratory: See history of present illness. GI: No abdominal pain. He also had nausea with some vomiting. : No frequency dysuria or hematuria. Musculoskeletal: No recent trauma. No pains. No swelling. Skin: No rash. Nondiaphoretic. Neuro: No weakness or numbness. Endocrine: No polyuria or polydipsia. EXAM Physical Exam Narrative Exam Narrative: CONSTITUTIONAL: Patient is nontoxic in appearance. The patient looks comfortable. Work of breathing looks normal. But he does look a little bit nervous. HEENT: No notable trauma. Mucous membranes moist. No sinus tenderness. No indication of pain with swallowing. EYES: No conjunctival injection. No proptosis. NECK:No JVD seen. No stridor. CARDIOVASCULAR: Borderline tachycardic rate. Regular rhythm. It sounds like thepatient may have a slight systolic murmur. But over his breathing and other sounds it is occasionally hard to hear. Peripheral pulses seem equal normal andstrong. RESPIRATORY: No respiratory distress. Breathing is unlabored. But the patient does have some expiratory wheezing on exam. He evidently does have an inhaler at home. But his states he does not normally wheeze and that is normally asign of him getting an infection. GASTROINTESTINAL: Not distended. Bowel sounds are normal. No tenderness. No guarding. No rebound. No palpable mass. No bruit is heard. GENITOURINARY: No tenderness over the bladder. No CVA tenderness. MUSCULOSKELETAL: Atraumatic. Bilateral chronic and unchanged peripheral edema. No cord. No tenderness along the deep venous system. No asymmetry. No distendedveins. Not mottled NEUROLOGICAL: Patient is alert and appropriate. No focal deficit noted. SKIN: No diaphoresis, pallor or mottling. PSYCHIATRIC: Patient is calm. Mood is appropriate. Const Vital Signs: 11/11/23 19:45 11/11/23 19:48 11/11/23 19:50 Temperature 96.8 F L Temperature Source Temporal Pulse Rate 101 H 94 Respiratory Rate 23 H 23 H Respiratory Pattern Normal Blood Pressure 168/130 H 186/106 H Blood Pressure Mean 142 132 Pulse Ox 86 92 Oxygen Delivery Method Room Air Nasal Cannula Oxygen Flow Rate (L/min) 2 11/11/23 20:19 11/11/23 20:17 Temperature Temperature Source Pulse Rate 104 H Respiratory Rate 24 H Respiratory Pattern Tachypnea Blood Pressure Blood Pressure Mean Pulse Ox Oxygen Delivery Method Room Air Oxygen Flow Rate (L/min) Heart Score History: Moderately Suspicious ECG: Nonspecific Repolarization Age: >/= 65 years Risk Factors: >/= 3 Risk Factors or History of CAD Score: 6 MDM MDM MDM Narrative Medical decision making narrative: Review of prior records shows: Cardiac Catheterization 12/22/2021: Coronary angiography findings; 1. Left main Short, calcified, bifurcating into LAD and the left circumflex Angiographically there is no obstructive atherosclerosis of the left main coronary artery 2. LAD, ostial?proximal 50-60%, calcified with extension of calcification to the mid LAD, rest of the LAD including mid and distal LAD normal angiographically 3. Left circumflex calcified proximally had around 50% stenosis, ostial high OM1 around 60 to 70% stenosis 4. RCA proximally had eccentric around 70% with the mid RCA occluded, [employer] Conclusion and recommendation; This patient is allergic to aspirin and had significant coronary atherosclerosis We will continue medical treatment. He has a paroxysmal atrial fibrillation will resume Eliquis in addition to rest of his cardiac medication He will follow-up with his primary rn flight Dr. Lino/[facility]. Patient's CBC shows minimal nonspecific anemia but otherwise normal. Patient's electrolytes are overall normal. Minimal elevation in creatinine at 1.4 and potassium was minimally low at 3.4 but this does not need correction. Glucose is a little high at 221 he does have a history of type 2 diabetes. Magnesium is normal. First troponin is negative at 23. My independent interpretation of the patient's EKG shows slightly poor inspiration with enlarged heart but no acute process. Final reading is similar. Up above I copy and pasted reading of a heart cath from about 2 years ago. Thishas multivessel disease. But he has never had any stents he says. He cannot take aspirin due to swelling of his lips and mouth and trouble breathing. But Donald concerned with him having chest pain, dyspnea, vomiting, radiation to his shoulders and arms and lightheadedness that is now better. He has significant risk. Because he has a moderately good story, nonspecific EKG changes, multiplerisk factors and age she actually has a heart score of 6. I have hospitalist onpage to discuss bringing into the hospital for further evaluation. He did request initiating Plavix due to the patient's allergy and his symptoms and risk. We will give initial dose here in the ED. Lab Data Attestation: I reviewed the patient's lab results. Labs: Laboratory Results - last 24 hr 11/11/23 19:54 WBC 7.0 RBC 4.09 L Hgb 12.5 L Hct 38.6 L MCV 94.4 H MCH 30.6 MCHC 32.4 RDW Std Deviation 53.4 H RDW Coeff of Azeem 15.3 H Plt Count 155 MPV 11.2 Immature Gran % (Auto) 0.300 Neut % (Auto) 52.3 Lymph % (Auto) 32.6 [place] % (Auto) 11.6 H Eos % (Auto) 2.9 Baso % (Auto) 0.3 Absolute Neuts (auto) 3.7 Absolute Lymphs (auto) 2.28 Nucleated RBC % 0 Sodium 144 Potassium 3.4 L Chloride 111 H Carbon Dioxide 28.0 Anion Gap 5 BUN 16 Creatinine 1.43 H Estim Creat Clear Calc 47.81 Est GFR (MDRD) Af Amer 61 Est GFR (MDRD) Non-Af 51 L BUN/Creatinine Ratio 11.2 Glucose 221 H Calcium 9.1 Magnesium 1.9 Troponin I High Sens 23 Radiography Diagnostic Testing: Clinical Impression(s) from Imaging Studies Chest X-Ray 11/11/23 20:35 IMPRESSION: No radiographic evidence of acute cardiopulmonary disease. Electronically Signed: Graham Alfaro MD at 21:01 EST , EKG Initial EKG: Comments: My independent interpretation of the patient's EKG shows sinus rhythm with mild tachycardic rate at 103. No ventricular ectopy. No acute ST elevation or depression consistent with acute infarct although there are some nonspecific changes. Minimal nonspecific inferior changes that might be a hair different than 20 September 2023 but the rest of the EKG looks normal. ME interval is slightly long showing some slight first-degree AV block. QRS duration and QTc are not showing any significant abnormality. Discharge Plan Dx/Rx/DC Orders Clinical Impression: Diabetes, History of coronary artery disease, Chest pain, Dyspnea, Nausea & vomiting Disposition Disposition: Acute Care Hospital [facility] What to do if you have Problems For any increased pain, shortness of breath, bleeding, nausea or vomiting, chestpain, or any unexpected problems, contact your Primary Care Provider. Call [facility] ([phone]) or report to the closest Emergency Room. Call 911 if necessary. 11/11/232210 <Electronically signed by Ana Maria Barnhart MD> Cosigner Signature (if applicable): CC: Dr. Jayme Yang MD ~ Signed [facility] Work Phone: [phone] 737-499002-12-2024 Discharge summary Author Ana Maria Barnhart [facility] November 11, 2023 10:11pm Note Date/Time November 11, 2023 8:15pm [facility] Medical Records Department [address] [place] [id number] Emergency Department Summary 11/11/23 MR#: [id number] Acct: [id number] Name: MEGAN GIMENEZ Rep #:[id number] : 1945 78 From: Ana Maria Barnhart MD PCP: Dr. Jayme Yang MD Status:REG E R Location: ED HPI History of Present Illness Chief Complaint: Chest Pain Informant: patient and spouse/S.O. Narrative Narrative: Patient presents with chest pain. It sounds like the patient has not been feeling well for a day. It is very hardto get the detailed onset of this. He had 20 radiation treatments for prostate cancer that ended a few weeks ago. He also had COVID around Thanksgiving. He has been weak ever since this. He states he just cannot seem to get his strength back. Yesterday he slept more of the day than would be normal. But hewas not having any symptoms other than that. Today he was sitting in a chair. He states he got the onset of pain in his leftanterior chest. Just left of sternum. It radiated up to the shoulders. He states both of his arms felt just kind of heavy. He did have some shortness of breath with this that seems more than his baseline. He did vomit a couple times. No blood was seen and he has no abdominal pain. He also complained thathe was lightheaded and kind of dizzy. His symptoms are markedly improved now. It was not tearing or ripping. He was not syncopal. He never had pain in his back. No abdominal pains. His states that he has history of getting pneumonia is very easily. She isconcerned about that because she heard him cough some Patient is on and is taking his Eliquis. This is due to a history of intermittent atrial fibrillation. He is a former smoker but quit many years ago. No first- degree relative history of early heart disease although his mother had stents she lived till 89 years old. But this patient does have obesity diabetes high blood pressure and high cholesterol. [facility] Medical History (Updated 11/11/23 @ 22:[address] Ana Maria Barnhart MD) Abnormal stress test Acute bronchitis with bronchospasm Acute respiratory insufficiency Anticoagulant long-term use Anxiety Aortic stenosis Arthralgia of foot, left Arthralgia of right knee Arthritis Asthma Asymptomatic hypertensive urgency Atherosclerotic heart disease of [place] coronary artery without angina pectoris Atrial fibrillation with RVR Back pain BiPAP (biphasic positive airway pressure) dependence Bronchitis Cancer of prostate with intermediate recurrence risk (stage T2b-c or [place] 7 or PSA 10-20) Cardiology follow-up encounter Closed head injury Colitis Concussion COVID-19 virus infection CPAP (continuous positive airway pressure) dependence Dementia Depression Diverticula of colon DM2 (diabetes mellitus, type 2) Dyspnea on exertion Dysuria Effusion, left knee Effusion, right knee Essential hypertension Excessive bleeding Fatigue Former smoker Gastric reflux Gout flare Heart failure High cholesterol History of atrial fibrillation History of echocardiogram History of edema History of renal disease History of steroid therapy History of stress test HTN (hypertension) Hyperlipidemia Hypertensive urgency Hypokalemia Inability to walk Inflammatory bowel disease Injury of head and neck Intractable pain Kidney stones Loss of consciousness LVH (left ventricular hypertrophy) Nonrheumatic aortic (valve) stenosis NSVT (nonsustained ventricular tachycardia) SUPA (obstructive sleep apnea) Paroxysmal atrial fibrillation Pneumonia Pneumonia Prostate cancer Prostate cancer Pulmonary hypertension Renal colic on left side Rheumatoid aortitis Rheumatoid arthritis Rhinovirus Rib pain Sepsis Severe acute respiratory syndrome coronavirus 2 (SARS-CoV-2) infection ruled out Severe sepsis Sinus drainage Sleep apnea SOB (shortness of breath) Syncope and collapse Ureterolithiasis Wears dentures Wears glasses Wears hearing aid White coat syndrome without diagnosis of hypertension Home Medications glimepiride 2 mg tablet 2 mg PO QHS diabetes 01/22/18 [History Last Taken 09/19/23] duloxetine 60 mg capsule,delayed release (Cymbalta) 60 mg PO DAILY depression 06/02/19 [History Last Taken 09/20/23] buspirone 7.5 mg tablet 7.5 mg PO BID depression/anxiety 04/12/21 [History Last Taken 09/20/23] latanoprost 0.005 % eye drops 1 drp LEFT EYE QPM eye health 12/22/21 [History Last Taken 03/20/23] gabapentin 600 mg tablet 300 mg PO BID neuropathy 01/26/22 [History Last Taken 09/20/23] carvedilol 25 mg tablet 25 mg PO BID HEART 10/02/22 [History Last Taken 09/20/23] losartan 100 mg tablet 100 mg PO DAILY BLOOD PRESSURE 10/02/22 [History Last Taken 09/20/23] oxybutynin chloride 10 mg tablet,extended release 24 hr 10 mg PO DAILY bladder 10/04/22 [History Last Taken 09/20/23] timolol maleate 0.5 % eye drops 1 drp LEFT EYE DAILY EYE HEALTH 10/04/22 [History Last Taken 03/20/23] apixaban 5 mg tablet 5 mg PO BID afib #180 tabs 12/03/22 [Rx Last Taken 09/20/23] rosuvastatin 20 mg tablet 10 mg PO DAILY cholesterol 03/21/23 [History Last Taken 09/20/23] fluticasone furoate 200 mcg-vilanterol 25 mcg/dose inhalation powder (Breo Ellipta) 1 inh inhalation QDAY #60 ea 04/04/23 [Rx Last Taken 09/20/23] infliximab 100 mg intravenous solution (Remicade) 100 mg IV .Q7W crohns 05/24/23[History Last Taken 09/04/23] hydralazine 100 mg tablet 100 mg PO TID BLOOD PRESSURE #270 tabs 06/14/23 [Rx Last Taken 09/20/23] isosorbide mononitrate 60 mg tablet,extended release 24 hr 60 mg PO BID BLOOD PRESSURE #90 tabs 07/25/23 [Rx Last Taken 09/20/23] montelukast 10 mg tablet 10 mg PO QPM #30 tabs 07/25/23 [Rx Last Taken 09/20/23] amiodarone 200 mg tablet See Rx Instructions .Route .COMPLEX #45 TABLETS 08/28/23 [Rx Last Taken 09/20/23] potassium chloride 10 mEq tablet,extended release(part/cryst) 10 meq PO DAILY supplement 09/04/23 [History Last Taken 09/20/23] guaifenesin 1,200 mg tablet, extended release 12 hr (Mucus Relief ER) 1,200 mg PO BID #20 tabs 09/05/23 [Rx Last Taken 09/20/23] amlodipine 10 mg tablet 5 mg PO DAILY 09/20/23 [History Last Taken 09/20/23] quetiapine 25 mg tablet 25 mg PO DAILY 09/20/23 [History Last Taken 09/20/23] levofloxacin 750 mg tablet 750 mg PO Q48H #4 tabs 09/24/23 [Rx Last Taken Unknown] doxazosin 4 mg tablet See Rx Instructions .Route .COMPLEX #60 TABLETS 10/14/23 [Rx Last Taken Unknown] phenazopyridine 100 mg tablet 100 mg PO TID PRN pain #30 tabs 11/08/23 [Rx Last Taken Unknown] quetiapine 50 mg tablet 50 mg PO 11/11/23 [History Last Taken Unknown] Allergy/AdvReac Type Severity Reaction Status Date / Time aspirin Allergy Severe Mouth Verified 10/16/23 08:09 swelling donepezil [From Aricept] AdvReac Severe Swelling Verified 10/16/23 08:09 minoxidil AdvReac Severe swelling Verified 10/16/23 08:09 morphine AdvReac Severe UNABLE TO Verified 10/16/23 08:09 URINATE Family History Mother Heart disease Diabetes Father Heart disease Lung disease Brother Heart disease Lung disease Cancer prostate, pancreatic Sister Diabetes Cancer uterine Surgical History Cervical vertebral fusion History of back surgery History of bilateral knee replacement History of cardiac catheterization History of left heart catheterization (LHC) (~12/22/21) History of prostate biopsy History of removal of cyst Hx of colectomy Hx of cystoscopy Hx of surgical procedure Social History Smoking Status: Former smoker how long ago did patient quit smokin, 2ppd second hand exposure: Yes alcohol intake: never substance use type: does not use caffeine: Yes Type: coffee Number of servings: 2 ROS ROS ED ROS Narrative A complete review of systems was performed and is negative except as documented in the history of present illness. Some specific details below. Constitutional: No recent fevers or chills. He has had malaise that seemed worse yesterday than what has become chronic. EYE: No discharge, visual complaints, or pain. ENT: No difficulty swallowing. No swelling. No pain. No reflux symptoms. CV: See history of present illness. Respiratory: See history of present illness. GI: No abdominal pain. He also had nausea with some vomiting. : No frequency dysuria or hematuria. Musculoskeletal: No recent trauma. No pains. No swelling. Skin: No rash. Nondiaphoretic. Neuro: No weakness or numbness. Endocrine: No polyuria or polydipsia. EXAM Physical Exam Narrative Exam Narrative: CONSTITUTIONAL: Patient is nontoxic in appearance. The patient looks comfortable. Work of breathing looks normal. But he does look a little bit nervous. HEENT: No notable trauma. Mucous membranes moist. No sinus tenderness. No indication of pain with swallowing. EYES: No conjunctival injection. No proptosis. NECK:No JVD seen. No stridor. CARDIOVASCULAR: Borderline tachycardic rate. Regular rhythm. It sounds like thepatient may have a slight systolic murmur. But over his breathing and other sounds it is occasionally hard to hear. Peripheral pulses seem equal normal andstrong. RESPIRATORY: No respiratory distress. Breathing is unlabored. But the patient does have some expiratory wheezing on exam. He evidently does have an inhaler at home. But his states he does not normally wheeze and that is normally asign of him getting an infection. GASTROINTESTINAL: Not distended. Bowel sounds are normal. No tenderness. No guarding. No rebound. No palpable mass. No bruit is heard. GENITOURINARY: No tenderness over the bladder. No CVA tenderness. MUSCULOSKELETAL: Atraumatic. Bilateral chronic and unchanged peripheral edema. No cord. No tenderness along the deep venous system. No asymmetry. No distendedveins. Not mottled NEUROLOGICAL: Patient is alert and appropriate. No focal deficit noted. SKIN: No diaphoresis, pallor or mottling. PSYCHIATRIC: Patient is calm. Mood is appropriate. Const Vital Signs: 11/11/23 19:45 11/11/23 19:48 11/11/23 19:50 Temperature 96.8 F L Temperature Source Temporal Pulse Rate 101 H 94 Respiratory Rate 23 H 23 H Respiratory Pattern Normal Blood Pressure 168/130 H 186/106 H Blood Pressure Mean 142 132 Pulse Ox 86 92 Oxygen Delivery Method Room Air Nasal Cannula Oxygen Flow Rate (L/min) 2 11/11/23 20:19 11/11/23 20:17 Temperature Temperature Source Pulse Rate 104 H Respiratory Rate 24 H Respiratory Pattern Tachypnea Blood Pressure Blood Pressure Mean Pulse Ox Oxygen Delivery Method Room Air Oxygen Flow Rate (L/min) Heart Score History: Moderately Suspicious ECG: Nonspecific Repolarization Age: >/= 65 years Risk Factors: >/= 3 Risk Factors or History of CAD Score: 6 MDM MDM MDM Narrative Medical decision making narrative: Review of prior records shows: Cardiac Catheterization 12/22/2021: Coronary angiography findings; 1. Left main Short, calcified, bifurcating into LAD and the left circumflex Angiographically there is no obstructive atherosclerosis of the left main coronary artery 2. LAD, ostial?proximal 50-60%, calcified with extension of calcification to the mid LAD, rest of the LAD including mid and distal LAD normal angiographically 3. Left circumflex calcified proximally had around 50% stenosis, ostial high OM1 around 60 to 70% stenosis 4. RCA proximally had eccentric around 70% with the mid RCA occluded, [employer] Conclusion and recommendation; This patient is allergic to aspirin and had significant coronary atherosclerosis We will continue medical treatment. He has a paroxysmal atrial fibrillation will resume Eliquis in addition to rest of his cardiac medication He will follow-up with his primary rn flight Dr. Lino/[facility]. Patient's CBC shows minimal nonspecific anemia but otherwise normal. Patient's electrolytes are overall normal. Minimal elevation in creatinine at 1.4 and potassium was minimally low at 3.4 but this does not need correction. Glucose is a little high at 221 he does have a history of type 2 diabetes. Magnesium is normal. First troponin is negative at 23. My independent interpretation of the patient's EKG shows slightly poor inspiration with enlarged heart but no acute process. Final reading is similar. Up above I copy and pasted reading of a heart cath from about 2 years ago. Thishas multivessel disease. But he has never had any stents he says. He cannot take aspirin due to swelling of his lips and mouth and trouble breathing. But Donald concerned with him having chest pain, dyspnea, vomiting, radiation to his shoulders and arms and lightheadedness that is now better. He has significant risk. Because he has a moderately good story, nonspecific EKG changes, multiplerisk factors and age she actually has a heart score of 6. I have hospitalist onpage to discuss bringing into the hospital for further evaluation. He did request initiating Plavix due to the patient's allergy and his symptoms and risk. We will give initial dose here in the ED. Lab Data Attestation: I reviewed the patient's lab results. Labs: Laboratory Results - last 24 hr 11/11/23 19:54 WBC 7.0 RBC 4.09 L Hgb 12.5 L Hct 38.6 L MCV 94.4 H MCH 30.6 MCHC 32.4 RDW Std Deviation 53.4 H RDW Coeff of Azeem 15.3 H Plt Count 155 MPV 11.2 Immature Gran % (Auto) 0.300 Neut % (Auto) 52.3 Lymph % (Auto) 32.6 [place] % (Auto) 11.6 H Eos % (Auto) 2.9 Baso % (Auto) 0.3 Absolute Neuts (auto) 3.7 Absolute Lymphs (auto) 2.28 Nucleated RBC % 0 Sodium 144 Potassium 3.4 L Chloride 111 H Carbon Dioxide 28.0 Anion Gap 5 BUN 16 Creatinine 1.43 H Estim Creat Clear Calc 47.81 Est GFR (MDRD) Af Amer 61 Est GFR (MDRD) Non-Af 51 L BUN/Creatinine Ratio 11.2 Glucose 221 H Calcium 9.1 Magnesium 1.9 Troponin I High Sens 23 Radiography Diagnostic Testing: Clinical Impression(s) from Imaging Studies Chest X-Ray 11/11/23 20:35 IMPRESSION: No radiographic evidence of acute cardiopulmonary disease. Electronically Signed: Graham Alfaro MD at 21:01 EST , EKG Initial EKG: Comments: My independent interpretation of the patient's EKG shows sinus rhythm with mild tachycardic rate at 103. No ventricular ectopy. No acute ST elevation or depression consistent with acute infarct although there are some nonspecific changes. Minimal nonspecific inferior changes that might be a hair different than 20 September 2023 but the rest of the EKG looks normal. ME interval is slightly long showing some slight first-degree AV block. QRS duration and QTc are not showing any significant abnormality. Discharge Plan Dx/Rx/DC Orders Clinical Impression: Diabetes, History of coronary artery disease, Chest pain, Dyspnea, Nausea & vomiting Disposition Disposition: Acute Care Hospital [facility] What to do if you have Problems For any increased pain, shortness of breath, bleeding, nausea or vomiting, chestpain, or any unexpected problems, contact your Primary Care Provider. Call [facility] ([phone]) or report to the closest Emergency Room. Call 911 if necessary. 11/11/232210 <Electronically signed by Ana Maria Barnhart MD> Cosigner Signature (if applicable): CC: Dr. Jayme Yang MD ~ Signed [facility] Work Phone: 1(475) 730-701812-26-2023 Discharge summary Author Boris Bojorquez [facility] September 24, 2023 8:39am Note Date/Time September 24, 2023 8:36am [facility] Medical Records Department [address] [place] [address] Instructions for Home/Discharge Instructions 09/24/23 0835 MR#: [id number] Acct: [id number] Name: MEGAN GIMENEZ Rep #:[id number] : 1945 78 From: Boris matos MD PCP: Dr. Jayem Yang MD Status:ADM I N Discharge Instructions Diet Discharge Diet: Low fat / Low cholesterol and Carb Control Diet Activity Discharge Activity: Return to Normal Activity Dressing / Incision Call your doctor if you observe: Fever of 101 or Higher, Shortness of breath, Dizziness, Fainting spells, Swelling in the ankles, Chest pain and Increased palpitations (irregular heartbeat) Follow Up Care Test Results: Test results from this visit will be discussed in further detail at your follow- up appointment, if applicable. Discharge Plan Admission Admit Date/Time: 09/22/23 14:53 Attending Provider: Boris Bojorquez Primary Care Provider: Jayme Yang Consulting Providers: Drake Mason Discharge Orders/Prescriptions Prescriptions: New prednisone 20 mg Tablet 40 mg PO BREAKFAST 10 Days Qty: 20 0RF levofloxacin 750 mg tablet 750 mg PO Q48H Qty: 4 0RF Continued duloxetine [Cymbalta] 60 mg capsule,delayed release(DR/EC) 60 mg PO DAILY gabapentin 600 mg tablet 600 mg PO BID fluticasone furoate-vilanterol [Breo Ellipta] 200-25 mcg/dose blister with device 1 inh inhalation QDAY Qty: 60 6RF Rx Instructions: after inhalation, rinse mouth with water and spit out; do not swallow glimepiride 2 MG tablet 2 mg PO QHS Patient Comments: buspirone 7.5 mg tablet 7.5 mg PO BID latanoprost 0.005 % Drops 1 drp LEFT EYE QPM carvedilol 25 mg tablet 25 mg PO BID losartan 100 mg tablet 100 mg PO DAILY doxazosin 4 mg tablet 4 mg PO BID oxybutynin chloride 10 mg tablet extended release 24hr 10 mg PO DAILY timolol maleate 0.5 % drops 1 drp LEFT EYE DAILY rosuvastatin 20 mg tablet 10 mg PO DAILY infliximab [Remicade] 100 mg recon soln 100 mg IV .Q7W Patient Comments: INFUSE 10MG/KG IV EVERY 7 WEEKS. DUE ON Saturday09/06/23 potassium chloride 10 mEq tablet,ER particles/crystals 10 meq PO DAILY guaifenesin [Mucus Relief ER] 1,200 mg Tablet Extended Release 12hr 1,200 mg PO BID Qty: 20 0RF quetiapine 25 mg tablet 25 mg PO DAILY amlodipine 10 mg tablet 10 mg PO DAILY apixaban 5 mg tablet 5 mg PO BID Qty: 180 3RF hydralazine 100 mg tablet 100 mg PO TID Qty: 270 3RF montelukast 10 mg tablet 10 mg PO QPM Qty: 30 3RF isosorbide mononitrate 60 mg tablet extended release 24 hr 60 mg PO BID Qty: 90 3RF amiodarone 200 mg tablet See Rx Instructions .ROUTE .COMPLEX Qty: 45 3RF Dose Instruction: Take 1/2 (one-half) tablet by mouth once daily Patient Comments: PT IS NOT SURE OF THE DOSAGE Rx Instructions: Take 1/2 (one-half) tablet by mouth once daily Referrals / Follow Up: Jayme Yang MD [Primary Care Provider] - Within 1 Week Disposition Disposition (needs filled in before D/C Order can be placed): Home, Self Care 09/24/23 0839<Electronically signed by Boris Bojorquez MD>Boris Bojorquez MD CC: Dr. Drake Mason, DO; Dr. Jayme Yang MD ~ Signed [facility] Work Phone: [phone]) 654-953712-25-2023 Progress note Author Boris Bojorquez [facility] September 23, 2023 8:35am Note Date/Time September 23, 2023 8:35am [facility] Medical Records Department [address] [place] [address] Progress Note - Hospitalist 09/23/2333 MR#: [id number] Acct: [id number] Name: MEGAN GIMENEZ Rep #:[id number] : 1945 78 From: Boris matos MD PCP: Dr. Jayme Yang MD Status:ADM I N Location: [facility] [id number] Subjective Subjective Maintaining his oxygen 5 L, He Feels Better When He Sitting in the Chair Ambulating Objective Data Objective Data Vital Signs: Vital Signs Temp Pulse Resp BP Pulse Ox O2 Del Method O2 Flow Rate 98.6 F 91 18 143/76 H 93 Nasal Cannula 5 09/23/23 02:40 09/23/23 07:05 09/23/23 07:05 09/23/23 02:40 09/23/23 08:04 09/23/23 08:04 09/23/23 08:04 Oxygen Flow Rate (L/min) 5 Oxygen Delivery Method Nasal Cannula Weight: 218 lb 7.649 oz Body Mass Index (BMI) 34.2 Intake & Output: Intake and Output for Last 24 Hours 09/22/23 09/23/23 09/24/23 03:59 03:59 03:59 Intake Total 850.75 / 850.75 600 / 600 400 / 400 Balance 850.75 / 850.75 600 / 600 400 / 400 Lab / Micro Data 09/22/23 05:30 09/23/23 04:10 Labs: Laboratory Results - last 24 hr 09/22/23 11:48: POC Glucose 239 H 09/22/23 16:10: POC Glucose 135 H 09/22/23 22:02: POC Glucose 175 H 09/23/23 04:10: Sodium 142, Potassium 3.5, Chloride 108 H, Carbon Dioxide 29.0, Anion Gap 5, BUN 25 H, Creatinine 1.43 H, Estim Creat Clear Calc 39.16, Est GFR (MDRD) Af Amer 61, Est GFR (MDRD) Non-Af 51 L, BUN/Creatinine Ratio 17.5, Glucose 158 H, Calcium 8.8 Micro: Microbiology 09/20/23 16:45 Sputum, Expectorated/Coughed Gram Stain - Final 09/20/23 16:45 Sputum, Expectorated/Coughed Respiratory Culture - Preliminary Pseudomonas aeruginosa 09/20/23 22:40 Urine, Random Legionella Antigen - Final 09/20/23 22:40 Urine, Random Streptococcus pneumoniae Antigen (M - Final 09/20/23 16:40 Mucosa - Nasopharyngeal Respiratory Panel (PCR) - Final 09/20/23 13:33 Mucosa - Nasopharyngeal Rapid RSV (DFA) - Final 09/20/23 13:33 Mucosa - Nose Influenza Types A,B Direct FA (ROBERTO) - Final Physical Exam Narrative General: Alert, Oriented x3, Cooperative, No apparent distress HEENT: Atraumatic, PERRLA, EOMI, Normocephalic Oral: Moist Mucosa Neck: Supple, No JVD Lungs: Diminished, Normal air movement, rhonchi, No wheeze, No rales Cardiovascular: Regular rate, Regular Rhythm, Normal S1, Normal S2, No murmurs Abdomen: Soft, Non Tender, Non-Distended, No Hepato-splenomegaly Extremities: No edema, Capillary Refill Less than 3 Seconds Skin: No rashes, No breakdown Musculoskeletal: No Tenderness to Palpation of Joints or Extremities Neurological: Cranial nerves II-XII grossly intact, Motor Exam 5/5 strength throughout, Sensory exam intact to light touch and pain Psych/Mental Status: Normal Affect, Appropriate Assessment & Plan Assessment/Plan (1) Pneumonia: PLAN: Plan 1. Right lower lobe community-acquired pneumonia from Pseudomonas aeruginosa inthe setting of a recent COVID infection CT? Continue incentive spirometry ? Sputum culture with a fairly resistant Pseudomonas aeruginosa, continue with Levaquin pending sensitivities ?Will start on prednisone 2.? CAD/HTN/HLD/paroxysmal A. fib ? Blood pressures are stable ? Can resume his home blood pressure medications ? Continue with his statin ? Continue with Eliquis 3.? DM2/CKD IIIb ? We will hold his home oral medications ? Continue sliding scale insulin ? Accu-Cheks AC at bedtime ? We will make adjustments as necessary ? Renal function is at baseline, will continue to monitor 4.? Glaucoma ? Stable ? Continue his eyedrops 5.? SUPA ? Stable ? Continue with home CPAP 6.? GERD ? Stable ? Continue with PPI DVT: Eliquis Charges/Coding Visit Charges Inpatient E&M: 74491 Subs Hosp L2 09/23/23 0835 <Electronically signed by Boris Bojorquez MD> Cosigner Signature (if applicable): CC: ~ Signed [facility] Work Phone: 1([phone]) 398-821212-24-2023 Progress note Author Boris Bojorquez [facility] September 22, 2023 8:44am Note Date/Time September 22, 2023 8:44am [facility] Medical Records Department [address] [place] [address] Progress Note - Hospitalist 09/22/23 0839 MR#: [id number] Acct: [id number] Name: MEGAN GIMENEZ Rep #:[id number] : 1945 78 From: Boris matos MD PCP: Dr. Jayme Yang MD Status:ADM I NO Location: [facility]3 [id number] Subjective Subjective Need increased oxygen overnight, repeat chest x-ray not much different from admission Gram stain with gram-negative [place] continue antibiotics Objective Data Objective Data Vital Signs: Vital Signs Temp Pulse Resp BP Pulse Ox O2 Del Method O2 Flow Rate 97.7 F L 103 H 20 H 149/86 H 92 Nasal Cannula 6 09/22/23 07:45 09/22/23 07:45 09/22/23 07:45 09/22/23 07:45 09/22/23 07:45 09/22/23 08:00 09/22/23 08:00 Oxygen Flow Rate (L/min) 6 Oxygen Delivery Method Nasal Cannula Weight: 218 lb 7.649 oz Body Mass Index (BMI) 34.2 Intake & Output: Intake and Output for Last 24 Hours 09/21/23 09/22/23 09/23/23 03:59 03:59 03:59 Intake Total 600.75 / 600.75 850.75 / 850.75 300 / 300 Balance 600.75 / 600.75 850.75 / 850.75 300 / 300 Lab / Micro Data 09/22/23 05:30 09/22/23 05:30 Labs: Laboratory Results - last 24 hr 09/21/23 11:49: POC Glucose 151 H 09/21/23 16:44: POC Glucose 138 H 09/21/23 22:53: POC Glucose 184 H 09/22/23 05:30: WBC 5.1, RBC 3.55 L, Hgb 11.1 L, Hct 33.2 L, MCV 93.5, MCH 31.3,MCHC 33.4, RDW Std Deviation 52.8 H, RDW Coeff of Azeem 15.3 H, Plt Count 124 L, MPV 10.9, Immature Gran % (Auto) 0.200, Neut % (Auto) 58.2, Lymph % (Auto) 25.0,Concho % (Auto) 12.9 H, Eos % (Auto) 3.3, Baso % (Auto) 0.4, Absolute Neuts (auto)3.0, Absolute Lymphs (auto) 1.28, Nucleated RBC % 0, Sodium 141, Potassium 3.3 L, Chloride 107, Carbon Dioxide 31.0, Anion Gap 3 L, BUN 21 H, Creatinine 1.45 H,Estim Creat Clear Calc 38.62, Est GFR (MDRD) Af Amer 60, Est GFR (MDRD) Non-Af 50 L, BUN/Creatinine Ratio 14.5, Glucose 179 H, Calcium 8.7 09/22/23 06:20: POC Glucose 183 H Micro: Microbiology 09/20/23 16:45 Sputum, Expectorated/Coughed Gram Stain - Final 09/20/23 16:45 Sputum, Expectorated/Coughed Respiratory Culture - Preliminary Gram negative [place] 09/20/23 22:40 Urine, Random Legionella Antigen - Final 09/20/23 22:40 Urine, Random Streptococcus pneumoniae Antigen (M - Final 09/20/23 16:40 Mucosa - Nasopharyngeal Respiratory Panel (PCR) - Final 09/20/23 13:33 Mucosa - Nasopharyngeal Rapid RSV (DFA) - Final 09/20/23 13:33 Mucosa - Nose Influenza Types A,B Direct FA (ROBERTO) - Final Radiography Diagnostic Testing: Radiology Impression Chest X-Ray 09/21/23 16:10 IMPRESSION: Findings most compatible for right mid lower lung pneumonitis and left basilar atelectasis. Cannot exclude asymmetric vascular congestion. No pleural effusion or pneumothorax. Electronically Signed: Marla Bhatia MD at 17:09 EST , Physical Exam Narrative General: Alert, Oriented x3, Cooperative, No apparent distress HEENT: Atraumatic, PERRLA, EOMI, Normocephalic Oral: Moist Mucosa Neck: Supple, No JVD Lungs: Diminished, Normal air movement, rhonchi, No wheeze, No rales Cardiovascular: Regular rate, Regular Rhythm, Normal S1, Normal S2, No murmurs Abdomen: Soft, Non Tender, Non-Distended, No Hepato-splenomegaly Extremities: No edema, Capillary Refill Less than 3 Seconds Skin: No rashes, No breakdown Musculoskeletal: No Tenderness to Palpation of Joints or Extremities Neurological: Cranial nerves II-XII grossly intact, Motor Exam 5/5 strength throughout, Sensory exam intact to light touch and pain Psych/Mental Status: Normal Affect, Appropriate Assessment & Plan Assessment/Plan (1) Pneumonia: PLAN: Plan 1. Right lower lobe community-acquired pneumonia in the setting of a recent COVID infection ? Continue with antibiotics ? Continue incentive spirometry ? Sputum cultures with gram-negative [place] respiratory panel Legionella and strep antigens are all negative 2.? CAD/HTN/HLD/paroxysmal A. fib ? Blood pressures are stable ? Can resume his home blood pressure medications ? Continue with his statin ? Continue with Eliquis 3.? DM2/CKD IIIb ? We will hold his home oral medications ? Continue sliding scale insulin ? Accu-Cheks AC at bedtime ? We will make adjustments as necessary ? Renal function is at baseline, will continue to monitor 4.? Glaucoma ? Stable ? Continue his eyedrops 5.? SUPA ? Stable ? Continue with home CPAP 6.? GERD ? Stable ? Continue with PPI DVT: Eliquis Charges/Coding Visit Charges Inpatient E&M: 20812 Subs Hosp L2 09/22/23 0844 <Electronically signed by Boris Bojorquez MD> Cosigner Signature (if applicable): CC: ~ Signed [facility] Work Phone: [phone]) 832-133412-23-2023 Progress note Author Boris Bojorquez [facility] September 21, 2023 9:34am Note Date/Time September 21, 2023 9:31am [facility] Medical Records Department [address] [place] [address] Progress Note - Hospitalist 09/21/23926 MR#: [id number] Acct: [id number] Name: MEGAN GIMENEZ Rep #:[id number] : 1945 78 From: Boris matos MD PCP: Dr. Jayme Yang MD Status:ADM I NO Location: [facility]3 [id number] Subjective Subjective Doing well, breathing a bit better today. Did not need oxygen on ambulation however still feels like he has a significant amount of congestion and is uncomfortable with discharge today Objective Data Objective Data Vital Signs: Vital Signs Temp Pulse Resp BP Pulse Ox O2 Del Method O2 Flow Rate 97.7 F L 95 18 165/92 H 94 Room Air 3 09/21/23 07:53 09/21/23 07:53 09/21/23 07:53 09/21/23 07:53 09/21/23 07:53 09/21/23 07:54 09/21/23 05:32 Oxygen Flow Rate (L/min) 3 Oxygen Delivery Method Room Air Weight: 218 lb 7.649 oz Body Mass Index (BMI) 34.2 Intake & Output: Intake and Output for Last 24 Hours 09/20/23 09/21/23 09/22/23 03:59 03:59 03:59 Intake Total 600.75 / 600.75 400.75 / 400.75 Balance 600.75 / 600.75 400.75 / 400.75 Lab / Micro Data 09/21/23 07:01 09/21/23 07:01 Labs: Laboratory Results - last 24 hr 09/20/23 13:35: WBC 5.8, RBC 3.72 L, Hgb 11.3 L, Hct 33.8 L, MCV 90.9, MCH 30.4,MCHC 33.4, RDW Std Deviation 50.2 H, RDW Coeff of Azeem 15.1 H, Plt Count 123 L, MPV 10.6, Sodium 141, Potassium 3.5, Chloride 109 H, Carbon Dioxide 27.0, Anion Gap 5, BUN 16, Creatinine 1.37 H, Estim Creat Clear Calc 40.88, Est GFR (MDRD) Af Amer 64, Est GFR (MDRD) Non-Af 53 L, BUN/Creatinine Ratio 11.7, Glucose 176 H, Calcium 8.7 09/20/23 16:44: POC Glucose 211 H 09/20/23 23:02: POC Glucose 121 H 09/21/23 07:01: WBC 5.5, RBC 3.72 L, Hgb 11.2 L, Hct 34.5 L, MCV 92.7, MCH 30.1,MCHC 32.5, RDW Std Deviation 51.1 H, RDW Coeff of Azeem 15.1 H, Plt Count 116 L, MPV 10.6, Immature Gran % (Auto) 0.400, Neut % (Auto) 58.3, Lymph % (Auto) 25.6,Concho % (Auto) 13.3 H, Eos % (Auto) 2.0, Baso % (Auto) 0.4, Absolute Neuts (auto)3.2, Absolute Lymphs (auto) 1.41, Nucleated RBC % 0, Sodium 141, Potassium 3.3 L, Chloride 109 H, Carbon Dioxide 28.0, Anion Gap 4 L, BUN 14, Creatinine 1.23, Estim Creat Clear Calc 45.53, Est GFR (MDRD) Af Amer 73, Est GFR (MDRD) Non-Af 60, BUN/Creatinine Ratio 11.4, Glucose 121 H, Calcium 8.4 L 09/21/23 07:33: POC Glucose 116 H Micro: Microbiology 09/20/23 22:40 Urine, Random Legionella Antigen - Final 09/20/23 22:40 Urine, Random Streptococcus pneumoniae Antigen (M - Final 09/20/23 16:40 Mucosa - Nasopharyngeal Respiratory Panel (PCR) - Final 09/20/23 13:33 Mucosa - Nasopharyngeal Rapid RSV (DFA) - Final 09/20/23 13:33 Mucosa - Nose Influenza Types A,B Direct FA (ROBERTO) - Final Radiography Diagnostic Testing: Radiology Impression Chest X-Ray 09/20/23 13:16 IMPRESSION: Patchy right lower lobe infiltrate. Electronically Signed: Shad Macias MD at 14:13 EST , Physical Exam Narrative General: Alert, Oriented x3, Cooperative, No apparent distress HEENT: Atraumatic, PERRLA, EOMI, Normocephalic Oral: Moist Mucosa Neck: Supple, No JVD Lungs: Diminished, Normal air movement, rhonchi, No wheeze, No rales Cardiovascular: Regular rate, Regular Rhythm, Normal S1, Normal S2, No murmurs Abdomen: Soft, Non Tender, Non-Distended, No Hepato-splenomegaly Extremities: No edema, Capillary Refill Less than 3 Seconds Skin: No rashes, No breakdown Musculoskeletal: No Tenderness to Palpation of Joints or Extremities Neurological: Cranial nerves II-XII grossly intact, Motor Exam 5/5 strength throughout, Sensory exam intact to light touch and pain Psych/Mental Status: Normal Affect, Appropriate Assessment & Plan Assessment/Plan (1) Pneumonia: PLAN: Plan 1. Right lower lobe community-acquired pneumonia in the setting of a recent COVID infection ? Continue with antibiotics ? Continue incentive spirometry ?Sputum cultures pending respiratory panel was unremarkable and Legionella and strep antigen are negative 2.? CAD/HTN/HLD/paroxysmal A. fib ? Blood pressures are stable ? Can resume his home blood pressure medications ? Continue with his statin ? Continue with Eliquis 3.? DM2/CKD IIIb ? We will hold his home oral medications ? Continue sliding scale insulin ? Accu-Cheks AC at bedtime ? We will make adjustments as necessary ? Renal function is at baseline, will continue to monitor 4.? Glaucoma ? Stable ? Continue his eyedrops 5.? SUPA ? Stable ? Continue with home CPAP 6.? GERD ? Stable ? Continue with PPI DVT: Eliquis Charges/Coding Visit Charges Inpatient E&M: 60232 Subs Hosp L2 09/21/23 0934 <Electronically signed by Boris Bojorquez MD> Cosigner Signature (if applicable): CC: ~ Signed [facility] Work Phone: 1(495) 792-945312-22-2023 History and physical note Author Drake Mason [facility] September 20, 2023 5:36pm Note Date/Time September 20, 2023 5:36pm [facility] Medical Records Department [address] [place] [address] H&P Exam - Hospitalist 09/20/23 1728 MR#: [id number] Acct: [id number] Name: MEGAN GIMENEZ Rep #:[id number] : 1945 78 From: Drake Mason DO PCP: Dr. Jayme Yang MD Status:ADM I NO Location: [facility]3 [id number] HPI - General General Date of Admission: 09/20/23 Date of Service: 09/20/23 Chief Complaint: Cough, generalized weakness HPI Narrative MEGAN GIMENEZ, is a 78 M who presents to the emergency room at [facility], he states he has been very weak at home and he has a persistent cough that is productive of yellow and green sputum. Patient was discharged from the hospital earlier this month with a COVID-19 diagnosis. Labs performed in the emergency room included a CBC which was remarkable for hemoglobin of 11.3, patient's platelet count was slightly low at 123,000, patient's white blood cell count was normal. Chemistry panel was remarkable forcreatinine 1.37, glucose was 176. Patient's pulse ox on room air was 92 Chest x-ray showed a right lower lobe infiltrate. Due to the patient's weakness, he will be admitted to [place] [address] for community-acquired pneumonia and generalized weakness, he will be seen by PT and OT, he will be placed on Levaquin for the pneumonia. [facility] Medical History (Updated 09/20/23 @ 16:08 by Khalida Jones) Abnormal stress test Acute bronchitis with bronchospasm Acute respiratory insufficiency Ambulates with cane Anxiety Aortic stenosis Arthritis Asthma Asymptomatic hypertensive urgency Atherosclerotic heart disease of [place] coronary artery without angina pectoris Atrial fibrillation with RVR Back pain BiPAP (biphasic positive airway pressure) dependence Bronchitis CAD in [place] artery Cancer Cardiology follow-up encounter Chronic anticoagulation Closed head injury Colitis Concussion Covid-19 COVID-19 virus infection CPAP (continuous positive airway pressure) dependence Dementia Depression Diabetes Diabetes Diverticula of colon DM2 (diabetes mellitus, type 2) Essential hypertension Excessive bleeding Former smoker Gastric reflux Heart failure High cholesterol History of atrial fibrillation History of echocardiogram History of edema History of renal disease History of steroid therapy History of stress test HTN (hypertension) Hyperlipidemia Hypertensive urgency Inflammatory bowel disease Injury of head and neck Intractable pain Kidney stones Loss of consciousness Nonrheumatic aortic (valve) stenosis NSVT (nonsustained ventricular tachycardia) SUPA (obstructive sleep apnea) Paroxysmal atrial fibrillation Prostate cancer Prostate disease Pulmonary hypertension Renal colic on left side Rheumatoid aortitis Rheumatoid arthritis Rhinovirus Sepsis Severe acute respiratory syndrome coronavirus 2 (SARS-CoV-2) infection ruled out Severe sepsis Sleep apnea SOB (shortness of breath) Ureterolithiasis Wears dentures Wears glasses Wears hearing aid Home Medications glimepiride 2 mg tablet 2 mg PO QHS diabetes 01/22/18 [History Last Taken 09/19/23] duloxetine 60 mg capsule,delayed release (Cymbalta) 60 mg PO DAILY depression 06/02/19 [History Last Taken 09/20/23] buspirone 7.5 mg tablet 7.5 mg PO BID depression/anxiety 04/12/21 [History Last Taken 09/20/23] latanoprost 0.005 % eye drops 1 drp LEFT EYE QPM eye health 12/22/21 [History Last Taken 03/20/23] gabapentin 600 mg tablet 600 mg PO BID neuropathy 01/26/22 [History Last Taken 09/20/23] carvedilol 25 mg tablet 25 mg PO BID HEART 10/02/22 [History Last Taken 09/20/23] doxazosin 4 mg tablet 4 mg PO BID BLOOD PRESSURE 10/02/22 [History Last Taken 09/20/23] losartan 100 mg tablet 100 mg PO DAILY BLOOD PRESSURE 10/02/22 [History Last Taken 09/20/23] oxybutynin chloride 10 mg tablet,extended release 24 hr 10 mg PO DAILY bladder 10/04/22 [History Last Taken 09/20/23] timolol maleate 0.5 % eye drops 1 drp LEFT EYE DAILY EYE HEALTH 10/04/22 [History Last Taken 03/20/23] apixaban 5 mg tablet 5 mg PO BID afib #180 tabs 12/03/22 [Rx Last Taken 09/20/23] rosuvastatin 20 mg tablet 10 mg PO DAILY cholesterol 03/21/23 [History Last Taken 09/20/23] fluticasone furoate 200 mcg-vilanterol 25 mcg/dose inhalation powder (Breo Ellipta) 1 inh inhalation QDAY #60 ea 04/04/23 [Rx Last Taken 09/20/23] infliximab 100 mg intravenous solution (Remicade) 100 mg IV .Q7W crohns 05/24/23[History Last Taken 09/04/23] hydralazine 100 mg tablet 100 mg PO TID BLOOD PRESSURE #270 tabs 06/14/23 [Rx Last Taken 09/20/23] isosorbide mononitrate 60 mg tablet,extended release 24 hr 60 mg PO BID BLOOD PRESSURE #90 tabs 07/25/23 [Rx Last Taken 09/20/23] montelukast 10 mg tablet 10 mg PO QPM #30 tabs 07/25/23 [Rx Last Taken 09/20/23] amiodarone 200 mg tablet See Rx Instructions .Route .COMPLEX #45 TABLETS 08/28/23 [Rx Last Taken 09/20/23] potassium chloride 10 mEq tablet,extended release(part/cryst) 10 meq PO DAILY supplement 09/04/23 [History Last Taken 09/20/23] guaifenesin 1,200 mg tablet, extended release 12 hr (Mucus Relief ER) 1,200 mg PO BID #20 tabs 09/05/23 [Rx Last Taken 09/20/23] amlodipine 10 mg tablet 10 mg PO DAILY 09/20/23 [History Last Taken 09/20/23] quetiapine 25 mg tablet 25 mg PO DAILY 09/20/23 [History Last Taken 09/20/23] Allergy/AdvReac Type Severity Reaction Status Date / Time aspirin Allergy Severe Mouth Verified 09/20/23 12:39 swelling donepezil [From Aricept] AdvReac Severe Swelling Verified 09/20/23 12:39 minoxidil AdvReac Severe swelling Verified 09/20/23 12:39 morphine AdvReac Severe UNABLE TO Verified 09/20/23 12:39 URINATE Family History Mother Heart disease Diabetes Father Heart disease Lung disease Brother Heart disease Lung disease Cancer prostate, pancreatic Sister Diabetes Cancer uterine Surgical History Cervical vertebral fusion History of back surgery History of bilateral knee replacement History of cardiac catheterization History of left heart catheterization (LHC) (~12/22/21) History of prostate biopsy History of removal of cyst Hx of colectomy Hx of cystoscopy Hx of surgical procedure Social History Smoking Status: Former smoker how long ago did patient quit smokin, 2ppd second hand exposure: Yes alcohol intake: never substance use type: does not use caffeine: Yes Type: coffee Number of servings: 2 ROS Constitutional Constitutional: Denies anorexia, change in weight, fever(s), night sweats or weakness Eyes Eyes: Denies blurry vision, change in vision, discharge from eye(s) or eye pain Cardiovascular Cardiovascular: Reports dyspnea on exertion; Denies chest pain, claudication, edema or palpitations Respiratory/Chest Respiratory/Chest: Reports cough, dyspnea, productive cough and shortness of breath with exertion; Denies hemoptysis or shortness of breath at rest Gastrointestinal Gastrointestinal: Denies abdominal pain, constipation, diarrhea, hematemesis, hematochezia, melena, nausea or vomiting Genitourinary Genitourinary: Denies dysuria, hematuria, urinary frequency, urinary hesitancy, urinary incontinence or urinary urgency Musculoskeletal Musculoskeletal: Denies back pain, joint pain, joint stiffness, joint swelling, myalgias or neck pain Neurologic Neurologic: Denies abnormal gait, abnormal speech, dizziness, focal weakness, headache(s), loss of vision, numbness, other visual disturbances, paresthesias, syncope or tingling Psychiatric Psychiatric: Denies anxiety, cognitive impairment, depression, irritability, mood swings or suicidal ideation Endocrine Endocrinology: Denies change in body appearance, cold intolerance, excessive sweating, heat intolerance, polydipsia or polyuria Hematologic/Lymphatic Hematologic/Lymphatic: Denies none, anemia, easy bleeding, easy bruising or lymphadenopathy Allergic/Immunologic Allergic/Immunologic: Denies rhinitis, urticaria, eczemia or asthma Vital Signs Vital Signs Vital Signs: 09/20/23 12:37 09/20/23 13:30 09/20/23 12:39 Temperature 97.2 F L Temperature Source Temporal Pulse Rate 94 88 Pulse Strength Respiratory Rate 18 16 Respiratory Effort Short of Breath Labored Respiratory Depth Respiratory Pattern Blood Pressure 199/89 H Blood Pressure Mean 125 Blood Pressure Source Blood Pressure Position Blood Pressure Location Pulse Ox 96 Oxygen Delivery Method Room Air Room Air 09/20/23 14:38 09/20/23 14:40 09/20/23 15:18 Temperature Temperature Source Pulse Rate 89 89 Pulse Strength Respiratory Rate 20 H 20 H Respiratory Effort Respiratory Depth Respiratory Pattern Blood Pressure 190/88 H 151/73 H Blood Pressure Mean 122 99 Blood Pressure Source Blood Pressure Position Blood Pressure Location Pulse Ox 92 93 Oxygen Delivery Method 09/20/23 15:45 09/20/23 16:09 09/20/23 16:32 Temperature 98.1 F 97.5 F L Temperature Source Oral Pulse Rate 91 92 Pulse Strength Respiratory Rate 16 20 H Respiratory Effort Normal Respiratory Depth Normal Respiratory Pattern Normal Blood Pressure 159/89 H 183/87 H Blood Pressure Mean 112 119 Blood Pressure Source Monitor Blood Pressure Position Sitting Blood Pressure Location Right Arm Pulse Ox 95 Oxygen Delivery Method Room Air Room Air 09/20/23 16:32 09/20/23 17:03 Temperature 98.1 F Temperature Source Temporal Pulse Rate 95 Pulse Strength Normal (2+) Respiratory Rate 16 Respiratory Effort Respiratory Depth Respiratory Pattern Blood Pressure 182/91 H Blood Pressure Mean 121 Blood Pressure Source Monitor Blood Pressure Position Sitting Blood Pressure Location Right Arm Pulse Ox 92 Oxygen Delivery Method Room Air Weight Weight: 99.1 kg Body Mass Index (BMI) 34.2 Physical Exam Const alert and no apparent distress General Appearance: cooperative, well kempt and well developed Orientation / Consciousness: awake, oriented to person and oriented to place HEENT normocephalic, head/scalp atraumatic, hearing grossly normal bilaterally and moist oral mucous membranes Eyes PERRL, EOMs intact bilaterally and conjunctivae normal Neck supple, no JVD, thyroid normal and no carotid bruits General: trachea midline Resp normal respiratory effort, no retractions, no use of accessory muscles and clearto auscultation bilaterally Auscultation: Negative for rales, rhonchi or wheezes Cardio regular rate, regular rhythm, S1 normal heart sound, S2 normal heart sound, no murmurs, no rub and no gallops GI normal to inspection, nondistended, normoactive bowel sounds, soft to palpation,non-tender and non-distended Extremity no clubbing, cyanosis or edema Skin no rashes or lesions noted General Skin Exam: no breakdown Neuro CN's II-XII intact bilaterally, moves all extremities, no focal motor deficits and no sensory deficits noted Sensorium / Orientation: awake, alert, oriented to person and oriented to place Speech: speech normal Psych affect normal Results Lab / Micro Data 09/20/23 13:35 09/20/23 13:35 Labs: Laboratory Results - last 24 hr 09/20/23 13:35: WBC 5.8, RBC 3.72 L, Hgb 11.3 L, Hct 33.8 L, MCV 90.9, MCH 30.4,MCHC 33.4, RDW Std Deviation 50.2 H, RDW Coeff of Azeem 15.1 H, Plt Count 123 L, MPV 10.6, Sodium 141, Potassium 3.5, Chloride 109 H, Carbon Dioxide 27.0, Anion Gap 5, BUN 16, Creatinine 1.37 H, Estim Creat Clear Calc 40.88, Est GFR (MDRD) Af Amer 64, Est GFR (MDRD) Non-Af 53 L, BUN/Creatinine Ratio 11.7, Glucose 176 H, Calcium 8.7 09/20/23 16:44: POC Glucose 211 H Micro: Microbiology 09/20/23 13:33 Mucosa - Nasopharyngeal Rapid RSV (DFA) - Final 09/20/23 13:33 Mucosa - Nose Influenza Types A,B Direct FA (ROBERTO) - Final Imagaing Radiology Impression Chest X-Ray 09/20/23 13:16 IMPRESSION: Patchy right lower lobe infiltrate. Electronically Signed: Shad Macias MD at 14:13 EST , Assessment & Plan Assessment/Plan (1) Pneumonia: PLAN: Plan 1. Right lower lobe community-acquired pneumonia without hypoxia-patient will be placed into observation status on MedSurg 3, he will be given aerosol treatments, placed on IV Levaquin, sputum culture will be obtained and urine culture for Legionella and strep as well as respiratory panel. #2 generalized weakness secondary to #1-patient will be seen by PT and OT #3 type 2 diabetes-patient's blood sugars will be monitored, he received slidingscale insulin #4 paroxysmal atrial fibrillation-patient is currently on Eliquis and carvedilol #5 essential hypertension-patient will remain on his home meds #6 cognitive impairment-possible dementia-patient was noted to have memory issues on previous visits to the emergency room, he appears alert today but he is a poor informant overall. #7 history of Crohn's disease-patient gets Remicade as an outpatient #8 hypercoagulable state secondary to paroxysmal atrial fibs-patient is on Eliquis Total clinical time spent by myself addressing the patient's medical issues, reviewing all of his data, and collaborating with patient's care team: 55 minutes Charges/Coding Visit Charges Inpatient E&M: 71417 Init Hosp L2 09/20/23 5796 <Electronically signed by Drake Mason DO> Cosigner Signature (if applicable): CC: Dr. Drake Mason DO; Dr. Jayme Yang MD~ Signed [facility] Work Phone: 1(695) 817-777912-22-2023 Discharge summary Author Jonathan Lopez [facility] September 20, 2023 3:28pm Note Date/Time September 20, 2023 1:23pm [facility] Medical Records Department [address] [place] [address] Emergency Department Summary 09/20/23 MR#: [id number] Acct: [id number] Name: MEGAN GIMENEZ Rep #:[id number] 15 : 1945 78 From: Jonathan Lopez MD PCP: Dr. Jayme Yang MD Status:ADM I NO Location: [facility] [place] [id number] HPI HPI - URI History of Present Illness Chief Complaint: Shortness of Breath Informant: patient Onset/Context/Timing Onset: Days Context: Gradual Onset Timing: Continuous Current Severity: Mild Maximum Severity: Moderate Associated Symptoms Associated Symptoms: Positive for Productive Cough (Clear and white sputum.); Negative for Nausea, Vomiting or Diarrhea Narrative Narrative: 78-year-old male history of asthma. Patient was diagnosed with COVID 2 to 3 weeks ago. Today has had a cough with productive white to clear sputum. No hemoptysis. Only chest pain is with coughing. He has a history of A-fib and diabetes he is on Eliquis and has a history of prostate cancer. He denies any vomiting or diarrhea. No dysuria. Patient is not on home O2. Prior similar symptoms: Yes Recent Illness/Hospitalization: Yes ROS ROS ED ROS Narrative Productive cough. Shortness of breath. Review of Systems ROS Unobtainable: Denies due to encephalopathy Constitutional Constitutional ED: Denies chills or fever(s) Eyes Eyes: Denies blurry vision ENT ENT ED: Denies ear pain Cardiovascular Cardiovascular: Denies chest pain or palpitations Respiratory/Chest Respiratory/Chest: Reports cough and dyspnea Gastrointestinal Gastrointestinal: Denies abdominal pain, constipation, diarrhea, melena, nausea or vomiting Genitourinary Genitourinary ED: Denies dysuria or hematuria Musculoskeletal Musculoskeletal: Denies arthralgias or back pain Integumentary Denies abscess or Abrasions Neurologic Neurologic: Denies headache(s) Psychiatric Psychiatric: Denies anxiety or depression Endocrine Endocrinology: Denies cold intolerance Hematologic/Lymphatic Hematologic/Lymphatic: Denies easy bleeding Allergic/Immunologic Allergic/Immunologic ED: Denies mouth swelling, tongue swelling or urticaria PFSH PFS Medical History Abnormal stress test Acute bronchitis with bronchospasm Acute respiratory insufficiency Ambulates with cane Anxiety Aortic stenosis Arthritis Asthma Asymptomatic hypertensive urgency Atherosclerotic heart disease of [place] coronary artery without angina pectoris Atrial fibrillation with RVR Back pain Bronchitis CAD in [place] artery Cancer Cardiology follow-up encounter Chronic anticoagulation Closed head injury Colitis Concussion Covid-19 COVID-19 virus infection CPAP (continuous positive airway pressure) dependence Dementia Depression Diabetes Diabetes Diverticula of colon DM2 (diabetes mellitus, type 2) Essential hypertension Excessive bleeding Former smoker Gastric reflux Heart failure High cholesterol History of atrial fibrillation History of echocardiogram History of edema History of renal disease History of steroid therapy History of stress test HTN (hypertension) Hyperlipidemia Hypertensive urgency Inflammatory bowel disease Injury of head and neck Intractable pain Kidney stones Loss of consciousness Nonrheumatic aortic (valve) stenosis NSVT (nonsustained ventricular tachycardia) SUPA (obstructive sleep apnea) Paroxysmal atrial fibrillation Prostate cancer Prostate disease Pulmonary hypertension Renal colic on left side Rheumatoid aortitis Rheumatoid arthritis Rhinovirus Sepsis Severe acute respiratory syndrome coronavirus 2 (SARS-CoV-2) infection ruled out Severe sepsis Sleep apnea SOB (shortness of breath) Ureterolithiasis Wears dentures Wears glasses Wears hearing aid Home Medications glimepiride 2 mg tablet 2 mg PO QHS diabetes 01/22/18 [History Last Taken 03/21/23] [id number] 300 mcg-K 60 mcg-lycop 600 mcg-lutein 300 mcg tablet (Centrum Silver Men) 1 ea PO DAILY supplement 09/17/18 [History Last Taken 03/21/23] duloxetine 60 mg capsule,delayed release (Cymbalta) 60 mg PO DAILY depression 06/02/19 [History Last Taken 03/21/23] buspirone 7.5 mg tablet 7.5 mg PO BID depression/anxiety 04/12/21 [History Last Taken 03/21/23] calcium carbonate 600 mg-vitamin D3 5 mcg (200 unit) tablet 1 tab PO DAILY supplement 12/21/21 [History Last Taken 03/21/23] latanoprost 0.005 % eye drops 1 drp LEFT EYE QPM eye health 12/22/21 [History Last Taken 03/20/23] gabapentin 600 mg tablet 300 mg PO BID neuropathy 01/26/22 [History Last Taken 03/21/23] carvedilol 25 mg tablet 25 mg PO BID HEART 10/02/22 [History Last Taken 08/07/23] cholecalciferol (vitamin D3) 25 mcg (1,000 unit) capsule 25 mcg PO DAILY SUPPLEMENT 10/02/22 [History Last Taken 10/04/22] doxazosin 4 mg tablet 4 mg PO BID BLOOD PRESSURE 10/02/22 [History Last Taken 03/21/23] esomeprazole magnesium 20 mg capsule,delayed release (Nexium) 20 mg PO DAILY GERD 10/02/22 [History Last Taken 08/07/23] loratadine 10 mg tablet 10 mg PO DAILY ALLERGIES 10/02/22 [History Last Taken 03/21/23] losartan 100 mg tablet 100 mg PO DAILY BLOOD PRESSURE 10/02/22 [History Last Taken 08/07/23] oxybutynin chloride 10 mg tablet,extended release 24 hr 10 mg PO DAILY bladder 10/04/22 [History Last Taken 03/21/23] timolol maleate 0.5 % eye drops 1 drp LEFT EYE DAILY EYE HEALTH 10/04/22 [History Last Taken 03/20/23] apixaban 5 mg tablet 5 mg PO BID afib #180 tabs 12/03/22 [Rx Last Taken 03/21/23] rosuvastatin 20 mg tablet 20 mg PO DAILY cholesterol 03/21/23 [History Last Taken 03/21/23] omega-3 fatty acids-vitamin E 1,000 mg capsule 1 cap PO DAILY Check with primarydoctor 03/22/23 [History Last Taken 03/21/23] fluticasone furoate 200 mcg-vilanterol 25 mcg/dose inhalation powder (Breo Ellipta) 1 inh inhalation QDAY #60 ea 04/04/23 [Rx Last Taken Unknown] amlodipine 10 mg tablet 5 mg (1/2 x 10 mg) PO DAILY #90 tabs 05/08/23 [Rx Last Taken 08/07/23] triamcinolone acetonide 55 mcg nasal spray aerosol (Nasacort) 2 spray intranasalBID 05/21/23 [History Last Taken Unknown] infliximab 100 mg intravenous solution (Remicade) 100 mg IV .Q7W crohns 05/24/23[History Last Taken Unknown] hydralazine 100 mg tablet 100 mg PO TID BLOOD PRESSURE #270 tabs 06/14/23 [Rx Last Taken Unknown] isosorbide mononitrate 60 mg tablet,extended release 24 hr 60 mg PO BID BLOOD PRESSURE #90 tabs 07/25/23 [Rx Last Taken 08/07/23] montelukast 10 mg tablet 10 mg PO QPM #30 tabs 07/25/23 [Rx Last Taken Unknown] amiodarone 200 mg tablet See Rx Instructions .Route .COMPLEX #45 TABLETS 08/28/23 [Rx Last Taken Unknown] potassium chloride 10 mEq tablet,extended release(part/cryst) 10 meq PO DAILY supplement 09/04/23 [History Last Taken Unknown] dexamethasone 6 mg tablet 6 mg PO DAILY #7 tabs 09/05/23 [Rx Last Taken Unknown] doxycycline hyclate 100 mg tablet 100 mg PO BID 14 days #28 tabs 09/05/23 [Rx Last Taken Unknown] guaifenesin 1,200 mg tablet, extended release 12 hr (Mucus Relief ER) 1,200 mg PO BID #20 tabs 09/05/23 [Rx Last Taken Unknown] Allergy/AdvReac Type Severity Reaction Status Date / Time aspirin Allergy Severe Mouth Verified 09/20/23 12:39 swelling donepezil [From Aricept] AdvReac Severe Swelling Verified 09/20/23 12:39 minoxidil AdvReac Severe swelling Verified 09/20/23 12:39 morphine AdvReac Severe UNABLE TO Verified 09/20/23 12:39 URINATE Family History Mother Heart disease Diabetes Father Heart disease Lung disease Brother Heart disease Lung disease Cancer prostate, pancreatic Sister Diabetes Cancer uterine Surgical History Cervical vertebral fusion History of back surgery History of bilateral knee replacement History of cardiac catheterization History of left heart catheterization (LHC) (~12/22/21) History of prostate biopsy History of removal of cyst Hx of colectomy Hx of cystoscopy Hx of surgical procedure Social History Smoking Status: Former smoker how long ago did patient quit smokin, 2ppd second hand exposure: Yes alcohol intake: never substance use type: does not use caffeine: Yes Type: coffee Number of servings: 2 EXAM Physical Exam Narrative Exam Narrative: 78-year-old male no acute distress. Vital signs stable afebrile. Pulse ox 96% on room air. He is coughing frequently. Currently there is no family present in the room. H EENT exam unremarkable. Neck nontender. No JVD. Lungs coarse breath sounds bilaterally. Rhonchorous. No significant wheezing. No rales. Heart regular rhythm rate of the 90s no murmur. Chest were nontender. Abdomen soft nontender. Moving all 4 extremities. Calves are nontender without edema or cords. Neurologically patient is awake and alert with no focal motor deficits. Const Vital Signs: 09/20/23 12:37 09/20/23 13:30 09/20/23 12:39 Temperature 97.2 F L Temperature Source Temporal Pulse Rate 94 88 Respiratory Rate 18 16 Respiratory Effort Short of Breath Labored Blood Pressure 199/89 H Blood Pressure Mean 125 Pulse Ox 96 Oxygen Delivery Method Room Air Room Air Positive well nourished and well developed; Negative for cachectic or contractures General Appearance ED: well developed and NAD; Negative for cachectic, contractures, cyanotic, diaphoretic or pallor Nutritional Appearance: Negative for cachectic HEENT Reports moist mucous membranes; Denies dry mucous membranes normocephalic and atraumatic; Negative for scalp tenderness Face and Sinus: Negative for sinus tenderness Mouth ED: No dry mucous membranes Mouth: No dry mucous membranes Throat: posterior oropharynx normal Eyes PERRL and EOMs intact bilaterally General Eye ED: Negative for pale conjunctiva or scleral icterus Neck no lymphadenopathy, supple, no meningeal signs and no JVD General: Negative for anterior neck swelling or lymphadenopathy Resp normal respiratory effort and No clear to auscultation bilaterally Auscultation: rhonchi; Negative for rales, wheezes or diminished lung sounds Cardio S1 normal heart sound, S2 normal heart sound and no murmurs Rate: regular rate Rhythm: regular rhythm GI non-tender, non-distended and no masses Inspection: Negative for abdominal distention Auscultation: normoactive bowel sounds Palpation: soft; Negative for tender or guarding Back/Spine no CVA tenderness and normal ROM General Back: Negative for CVA tenderness Cervical Spine: Negative for cervical spine tenderness Thoracic Spine / Upper Back: Negative for thoracic spinal tenderness Lumbar Spine / Lower Back: Negative for lumbar spinal tenderness Extremity normal to inspection General Extremety ED: Negative for cyanosis or tenderness General Extremity: Negative for cyanosis Neuro oriented x3 and CN's II-XII intact bilaterally Sensorium / Orientation: alert, oriented to person, oriented to place and oriented to time; Negative for orientation impaired, lethargic or stuporous Motor Exam: strength 5/5 throughout Psych mental status grossly normal Appearance: Negative for other Attitude: No agitated Mood & Affect: Negative for depressed, anxious or tearful Skin General Skin Exam: Negative for jaundice or pallor Lesions: no lesions Rashes: no rashes Trauma: Negative for abrasion or laceration MDM MDM MDM Narrative Medical decision making narrative: 78-year-old male history of asthma. Diagnosed with COVID 2 to 3 weeks ago. Continues to be short of breath with a productive cough. He is on the blood thinner Eliquis. Chest x-ray and labs being obtained. Concern for possible pneumonia versus other etiologies. Repeat exam at 2:27 PM patient doing well. I discussed with him his test results. He said he is too weak to go home. States he has been falling. I will speak to the hospitalist about admission for right lower lobe pneumonia andgeneralized weakness. History & Record Review Discussion w/independent historian: Patient Additional record(s) reviewed:: Prior inpatient record, Prior outpatient record,Prior ED visit, Prior labs and No prior records Lab Data Attestation: I reviewed the patient's lab results. Lab results narrative: CBC shows a white count of 5.8. H&H 11.3 and 33 which is patient's baseline. Platelets 123 electrolytes show a gap of 5 BUN and creatinine is 16 and 1.3. Glucose 176. Influenza and RSV are both negative. Chest x-ray looks like a right lower lobe pneumonia. Labs: Laboratory Results - last 24 hr 09/20/23 13:35 WBC 5.8 RBC 3.72 L Hgb 11.3 L Hct 33.8 L MCV 90.9 MCH 30.4 MCHC 33.4 RDW Std Deviation 50.2 H RDW Coeff of Azeem 15.1 H Plt Count 123 L MPV 10.6 Sodium 141 Potassium 3.5 Chloride 109 H Carbon Dioxide 27.0 Anion Gap 5 BUN 16 Creatinine 1.37 H Estim Creat Clear Calc 40.88 Est GFR (MDRD) Af Amer 64 Est GFR (MDRD) Non-Af 53 L BUN/Creatinine Ratio 11.7 Glucose 176 H Calcium 8.7 Radiography Chest X-Ray - ED: 2 View, Read by ED Physician, Mediastinum, Bony Structures, Chronic Changes and Right Infiltrate Diagnostic Testing: Clinical Impression(s) from Imaging Studies Chest X-Ray 09/20/23 13:16 IMPRESSION: Patchy right lower lobe infiltrate. Electronically Signed: Shad Macias MD at 14:13 EST , Chest x-ray, 2 views, AP and lateral, interpreted by myself the radiologist looks like a right lower lobe infiltrate/pneumonia. Discharge Plan Triage Chief Complaint: Shortness of Breath ED Provider: Jonathan Lopez Dx/Rx/DC Orders Prescriptions: No Action duloxetine [Cymbalta] 60 mg capsule,delayed release(DR/EC) 60 mg PO DAILY gabapentin 600 mg tablet 300 mg PO BID fluticasone furoate-vilanterol [Breo Ellipta] 200-25 mcg/dose blister with device 1 inh inhalation QDAY Qty: 60 6RF Rx Instructions: after inhalation, rinse mouth with water and spit out; do not swallow triamcinolone acetonide [Nasacort] 55 mcg aerosol,spray 2 spray intranasal BID Rx Instructions: administer into each nostril glimepiride 2 MG tablet 2 mg PO QHS Patient Comments: Centrum Silver Men 1 EACH tablet 1 ea PO DAILY buspirone 7.5 mg tablet 7.5 mg PO BID calcium carbonate-vitamin D3 600 mg-5 mcg (200 unit) Tablet 1 tab PO DAILY latanoprost 0.005 % Drops 1 drp LEFT EYE QPM carvedilol 25 mg tablet 25 mg PO BID losartan 100 mg tablet 100 mg PO DAILY loratadine 10 mg Tablet 10 mg PO DAILY esomeprazole magnesium [Nexium] 20 mg Capsule,Delayed Release(Dr/Ec) 20 mg PO DAILY cholecalciferol (vitamin D3) 25 mcg (1,000 unit) Capsule 25 mcg PO DAILY doxazosin 4 mg tablet 4 mg PO BID oxybutynin chloride 10 mg tablet extended release 24hr 10 mg PO DAILY timolol maleate 0.5 % drops 1 drp LEFT EYE DAILY rosuvastatin 20 mg tablet 20 mg PO DAILY omega-3 fatty acids-vitamin E 1,000 mg Capsule 1 cap PO DAILY infliximab [Remicade] 100 mg recon soln 100 mg IV .Q7W Patient Comments: INFUSE 10MG/KG IV EVERY 7 WEEKS. DUE ON Saturday09/06/23 potassium chloride 10 mEq tablet,ER particles/crystals 10 meq PO DAILY guaifenesin [Mucus Relief ER] 1,200 mg Tablet Extended Release 12hr 1,200 mg PO BID Qty: 20 0RF doxycycline hyclate 100 mg tablet 100 mg PO BID 14 Days Qty: 28 0RF dexamethasone 6 mg tablet 6 mg PO DAILY Qty: 7 0RF apixaban 5 mg tablet 5 mg PO BID Qty: 180 3RF amlodipine 10 mg tablet 5 mg PO DAILY Qty: 90 3RF hydralazine 100 mg tablet 100 mg PO TID Qty: 270 3RF montelukast 10 mg tablet 10 mg PO QPM Qty: 30 3RF isosorbide mononitrate 60 mg tablet extended release 24 hr 60 mg PO BID Qty: 90 3RF amiodarone 200 mg tablet See Rx Instructions .ROUTE .COMPLEX Qty: 45 3RF Dose Instruction: Take 1/2 (one-half) tablet by mouth once daily Patient Comments: PT IS NOT SURE OF THE DOSAGE Rx Instructions: Take 1/2 (one-half) tablet by mouth once daily Primary Care Provider: Jayme Yang Referrals: Jayme Yang MD [Primary Care Provider] - What to do if you have Problems For any increased pain, shortness of breath, bleeding, nausea or vomiting, chestpain, or any unexpected problems, contact your Primary Care Provider. Call [facility] ([phone]) or report to the closest Emergency Room. Call 911 if necessary. 09/20/23 1528 <Electronically signed by Jonathan Lopez MD> Cosigner Signature (if applicable): CC: Dr. Jayme Yang MD ~ Signed [facility] Work Phone: [phone] 446-521712-22-2023 Discharge summary Author Jonathan Lopez [facility] September 20, 2023 3:28pm Note Date/Time September 20, 2023 1:23pm [facility] Medical Records Department [address] [place] [address] [place] [address] Emergency Department Summary 09/20/23 MR#: [id number] Acct: [id number] Name: MEGAN GIMENEZ Rep #:[id number] 15 : 1945 78 From: Jonathan Lopez MD PCP: Dr. Jayme Yang MD Status:ADM I NO Location: [facility] [id number] HPI HPI - URI History of Present Illness Chief Complaint: Shortness of Breath Informant: patient Onset/Context/Timing Onset: Days Context: Gradual Onset Timing: Continuous Current Severity: Mild Maximum Severity: Moderate Associated Symptoms Associated Symptoms: Positive for Productive Cough (Clear and white sputum.); Negative for Nausea, Vomiting or Diarrhea Narrative Narrative: 78-year-old male history of asthma. Patient was diagnosed with COVID 2 to 3 weeks ago. Today has had a cough with productive white to clear sputum. No hemoptysis. Only chest pain is with coughing. He has a history of A-fib and diabetes he is on Eliquis and has a history of prostate cancer. He denies any vomiting or diarrhea. No dysuria. Patient is not on home O2. Prior similar symptoms: Yes Recent Illness/Hospitalization: Yes ROS ROS ED ROS Narrative Productive cough. Shortness of breath. Review of Systems ROS Unobtainable: Denies due to encephalopathy Constitutional Constitutional ED: Denies chills or fever(s) Eyes Eyes: Denies blurry vision ENT ENT ED: Denies ear pain Cardiovascular Cardiovascular: Denies chest pain or palpitations Respiratory/Chest Respiratory/Chest: Reports cough and dyspnea Gastrointestinal Gastrointestinal: Denies abdominal pain, constipation, diarrhea, melena, nausea or vomiting Genitourinary Genitourinary ED: Denies dysuria or hematuria Musculoskeletal Musculoskeletal: Denies arthralgias or back pain Integumentary Denies abscess or Abrasions Neurologic Neurologic: Denies headache(s) Psychiatric Psychiatric: Denies anxiety or depression Endocrine Endocrinology: Denies cold intolerance Hematologic/Lymphatic Hematologic/Lymphatic: Denies easy bleeding Allergic/Immunologic Allergic/Immunologic ED: Denies mouth swelling, tongue swelling or urticaria PFSH PFSH Medical History Abnormal stress test Acute bronchitis with bronchospasm Acute respiratory insufficiency Ambulates with cane Anxiety Aortic stenosis Arthritis Asthma Asymptomatic hypertensive urgency Atherosclerotic heart disease of [place] coronary artery without angina pectoris Atrial fibrillation with RVR Back pain Bronchitis CAD in [place] artery Cancer Cardiology follow-up encounter Chronic anticoagulation Closed head injury Colitis Concussion Covid-19 COVID-19 virus infection CPAP (continuous positive airway pressure) dependence Dementia Depression Diabetes Diabetes Diverticula of colon DM2 (diabetes mellitus, type 2) Essential hypertension Excessive bleeding Former smoker Gastric reflux Heart failure High cholesterol History of atrial fibrillation History of echocardiogram History of edema History of renal disease History of steroid therapy History of stress test HTN (hypertension) Hyperlipidemia Hypertensive urgency Inflammatory bowel disease Injury of head and neck Intractable pain Kidney stones Loss of consciousness Nonrheumatic aortic (valve) stenosis NSVT (nonsustained ventricular tachycardia) SUPA (obstructive sleep apnea) Paroxysmal atrial fibrillation Prostate cancer Prostate disease Pulmonary hypertension Renal colic on left side Rheumatoid aortitis Rheumatoid arthritis Rhinovirus Sepsis Severe acute respiratory syndrome coronavirus 2 (SARS-CoV-2) infection ruled out Severe sepsis Sleep apnea SOB (shortness of breath) Ureterolithiasis Wears dentures Wears glasses Wears hearing aid Home Medications glimepiride 2 mg tablet 2 mg PO QHS diabetes 01/22/18 [History Last Taken 03/21/23] [id number] 300 mcg-K 60 mcg-lycop 600 mcg-lutein 300 mcg tablet (Centrum Silver Men) 1 ea PO DAILY supplement 09/17/18 [History Last Taken 03/21/23] duloxetine 60 mg capsule,delayed release (Cymbalta) 60 mg PO DAILY depression 06/02/19 [History Last Taken 03/21/23] buspirone 7.5 mg tablet 7.5 mg PO BID depression/anxiety 04/12/21 [History Last Taken 03/21/23] calcium carbonate 600 mg-vitamin D3 5 mcg (200 unit) tablet 1 tab PO DAILY supplement 12/21/21 [History Last Taken 03/21/23] latanoprost 0.005 % eye drops 1 drp LEFT EYE QPM eye health 12/22/21 [History Last Taken 03/20/23] gabapentin 600 mg tablet 300 mg PO BID neuropathy 01/26/22 [History Last Taken 03/21/23] carvedilol 25 mg tablet 25 mg PO BID HEART 10/02/22 [History Last Taken 08/07/23] cholecalciferol (vitamin D3) 25 mcg (1,000 unit) capsule 25 mcg PO DAILY SUPPLEMENT 10/02/22 [History Last Taken 10/04/22] doxazosin 4 mg tablet 4 mg PO BID BLOOD PRESSURE 10/02/22 [History Last Taken 03/21/23] esomeprazole magnesium 20 mg capsule,delayed release (Nexium) 20 mg PO DAILY GERD 10/02/22 [History Last Taken 08/07/23] loratadine 10 mg tablet 10 mg PO DAILY ALLERGIES 10/02/22 [History Last Taken 03/21/23] losartan 100 mg tablet 100 mg PO DAILY BLOOD PRESSURE 10/02/22 [History Last Taken 08/07/23] oxybutynin chloride 10 mg tablet,extended release 24 hr 10 mg PO DAILY bladder 10/04/22 [History Last Taken 03/21/23] timolol maleate 0.5 % eye drops 1 drp LEFT EYE DAILY EYE HEALTH 10/04/22 [History Last Taken 03/20/23] apixaban 5 mg tablet 5 mg PO BID afib #180 tabs 12/03/22 [Rx Last Taken 03/21/23] rosuvastatin 20 mg tablet 20 mg PO DAILY cholesterol 03/21/23 [History Last Taken 03/21/23] omega-3 fatty acids-vitamin E 1,000 mg capsule 1 cap PO DAILY Check with primarydoctor 03/22/23 [History Last Taken 03/21/23] fluticasone furoate 200 mcg-vilanterol 25 mcg/dose inhalation powder (Breo Ellipta) 1 inh inhalation QDAY #60 ea 04/04/23 [Rx Last Taken Unknown] amlodipine 10 mg tablet 5 mg (1/2 x 10 mg) PO DAILY #90 tabs 05/08/23 [Rx Last Taken 08/07/23] triamcinolone acetonide 55 mcg nasal spray aerosol (Nasacort) 2 spray intranasalBID 05/21/23 [History Last Taken Unknown] infliximab 100 mg intravenous solution (Remicade) 100 mg IV .Q7W crohns 05/24/23[History Last Taken Unknown] hydralazine 100 mg tablet 100 mg PO TID BLOOD PRESSURE #270 tabs 06/14/23 [Rx Last Taken Unknown] isosorbide mononitrate 60 mg tablet,extended release 24 hr 60 mg PO BID BLOOD PRESSURE #90 tabs 07/25/23 [Rx Last Taken 08/07/23] montelukast 10 mg tablet 10 mg PO QPM #30 tabs 07/25/23 [Rx Last Taken Unknown] amiodarone 200 mg tablet See Rx Instructions .Route .COMPLEX #45 TABLETS 08/28/23 [Rx Last Taken Unknown] potassium chloride 10 mEq tablet,extended release(part/cryst) 10 meq PO DAILY supplement 09/04/23 [History Last Taken Unknown] dexamethasone 6 mg tablet 6 mg PO DAILY #7 tabs 09/05/23 [Rx Last Taken Unknown] doxycycline hyclate 100 mg tablet 100 mg PO BID 14 days #28 tabs 09/05/23 [Rx Last Taken Unknown] guaifenesin 1,200 mg tablet, extended release 12 hr (Mucus Relief ER) 1,200 mg PO BID #20 tabs 09/05/23 [Rx Last Taken Unknown] Allergy/AdvReac Type Severity Reaction Status Date / Time aspirin Allergy Severe Mouth Verified 09/20/23 12:39 swelling donepezil [From Aricept] AdvReac Severe Swelling Verified 09/20/23 12:39 minoxidil AdvReac Severe swelling Verified 09/20/23 12:39 morphine AdvReac Severe UNABLE TO Verified 09/20/23 12:39 URINATE Family History Mother Heart disease Diabetes Father Heart disease Lung disease Brother Heart disease Lung disease Cancer prostate, pancreatic Sister Diabetes Cancer uterine Surgical History Cervical vertebral fusion History of back surgery History of bilateral knee replacement History of cardiac catheterization History of left heart catheterization (LHC) (~12/22/21) History of prostate biopsy History of removal of cyst Hx of colectomy Hx of cystoscopy Hx of surgical procedure Social History Smoking Status: Former smoker how long ago did patient quit smokin, 2ppd second hand exposure: Yes alcohol intake: never substance use type: does not use caffeine: Yes Type: coffee Number of servings: 2 EXAM Physical Exam Narrative Exam Narrative: 78-year-old male no acute distress. Vital signs stable afebrile. Pulse ox 96% on room air. He is coughing frequently. Currently there is no family present in the room. H EENT exam unremarkable. Neck nontender. No JVD. Lungs coarse breath sounds bilaterally. Rhonchorous. No significant wheezing. No rales. Heart regular rhythm rate of the 90s no murmur. Chest were nontender. Abdomen soft nontender. Moving all 4 extremities. Calves are nontender without edema or cords. Neurologically patient is awake and alert with no focal motor deficits. Const Vital Signs: 09/20/23 12:37 09/20/23 13:30 09/20/23 12:39 Temperature 97.2 F L Temperature Source Temporal Pulse Rate 94 88 Respiratory Rate 18 16 Respiratory Effort Short of Breath Labored Blood Pressure 199/89 H Blood Pressure Mean 125 Pulse Ox 96 Oxygen Delivery Method Room Air Room Air Positive well nourished and well developed; Negative for cachectic or contractures General Appearance ED: well developed and NAD; Negative for cachectic, contractures, cyanotic, diaphoretic or pallor Nutritional Appearance: Negative for cachectic HEENT Reports moist mucous membranes; Denies dry mucous membranes normocephalic and atraumatic; Negative for scalp tenderness Face and Sinus: Negative for sinus tenderness Mouth ED: No dry mucous membranes Mouth: No dry mucous membranes Throat: posterior oropharynx normal Eyes PERRL and EOMs intact bilaterally General Eye ED: Negative for pale conjunctiva or scleral icterus Neck no lymphadenopathy, supple, no meningeal signs and no JVD General: Negative for anterior neck swelling or lymphadenopathy Resp normal respiratory effort and No clear to auscultation bilaterally Auscultation: rhonchi; Negative for rales, wheezes or diminished lung sounds Cardio S1 normal heart sound, S2 normal heart sound and no murmurs Rate: regular rate Rhythm: regular rhythm GI non-tender, non-distended and no masses Inspection: Negative for abdominal distention Auscultation: normoactive bowel sounds Palpation: soft; Negative for tender or guarding Back/Spine no CVA tenderness and normal ROM General Back: Negative for CVA tenderness Cervical Spine: Negative for cervical spine tenderness Thoracic Spine / Upper Back: Negative for thoracic spinal tenderness Lumbar Spine / Lower Back: Negative for lumbar spinal tenderness Extremity normal to inspection General Extremety ED: Negative for cyanosis or tenderness General Extremity: Negative for cyanosis Neuro oriented x3 and CN's II-XII intact bilaterally Sensorium / Orientation: alert, oriented to person, oriented to place and oriented to time; Negative for orientation impaired, lethargic or stuporous Motor Exam: strength 5/5 throughout Psych mental status grossly normal Appearance: Negative for other Attitude: No agitated Mood & Affect: Negative for depressed, anxious or tearful Skin General Skin Exam: Negative for jaundice or pallor Lesions: no lesions Rashes: no rashes Trauma: Negative for abrasion or laceration MDM MDM MDM Narrative Medical decision making narrative: 78-year-old male history of asthma. Diagnosed with COVID 2 to 3 weeks ago. Continues to be short of breath with a productive cough. He is on the blood thinner Eliquis. Chest x-ray and labs being obtained. Concern for possible pneumonia versus other etiologies. Repeat exam at 2:27 PM patient doing well. I discussed with him his test results. He said he is too weak to go home. States he has been falling. I will speak to the hospitalist about admission for right lower lobe pneumonia andgeneralized weakness. History & Record Review Discussion w/independent historian: Patient Additional record(s) reviewed:: Prior inpatient record, Prior outpatient record,Prior ED visit, Prior labs and No prior records Lab Data Attestation: I reviewed the patient's lab results. Lab results narrative: CBC shows a white count of 5.8. H&H 11.3 and 33 which is patient's baseline. Platelets 123 electrolytes show a gap of 5 BUN and creatinine is 16 and 1.3. Glucose 176. Influenza and RSV are both negative. Chest x-ray looks like a right lower lobe pneumonia. Labs: Laboratory Results - last 24 hr 09/20/23 13:35 WBC 5.8 RBC 3.72 L Hgb 11.3 L Hct 33.8 L MCV 90.9 MCH 30.4 MCHC 33.4 RDW Std Deviation 50.2 H RDW Coeff of Azeem 15.1 H Plt Count 123 L MPV 10.6 Sodium 141 Potassium 3.5 Chloride 109 H Carbon Dioxide 27.0 Anion Gap 5 BUN 16 Creatinine 1.37 H Estim Creat Clear Calc 40.88 Est GFR (MDRD) Af Amer 64 Est GFR (MDRD) Non-Af 53 L BUN/Creatinine Ratio 11.7 Glucose 176 H Calcium 8.7 Radiography Chest X-Ray - ED: 2 View, Read by ED Physician, Mediastinum, Bony Structures, Chronic Changes and Right Infiltrate Diagnostic Testing: Clinical Impression(s) from Imaging Studies Chest X-Ray 09/20/23 13:16 IMPRESSION: Patchy right lower lobe infiltrate. Electronically Signed: Shad Macias MD at 14:13 EST , Chest x-ray, 2 views, AP and lateral, interpreted by myself the radiologist looks like a right lower lobe infiltrate/pneumonia. Discharge Plan Triage Chief Complaint: Shortness of Breath ED Provider: Jonathan Lopez Dx/Rx/DC Orders Prescriptions: No Action duloxetine [Cymbalta] 60 mg capsule,delayed release(DR/EC) 60 mg PO DAILY gabapentin 600 mg tablet 300 mg PO BID fluticasone furoate-vilanterol [Breo Ellipta] 200-25 mcg/dose blister with device 1 inh inhalation QDAY Qty: 60 6RF Rx Instructions: after inhalation, rinse mouth with water and spit out; do not swallow triamcinolone acetonide [Nasacort] 55 mcg aerosol,spray 2 spray intranasal BID Rx Instructions: administer into each nostril glimepiride 2 MG tablet 2 mg PO QHS Patient Comments: Centrum Silver Men 1 EACH tablet 1 ea PO DAILY buspirone 7.5 mg tablet 7.5 mg PO BID calcium carbonate-vitamin D3 600 mg-5 mcg (200 unit) Tablet 1 tab PO DAILY latanoprost 0.005 % Drops 1 drp LEFT EYE QPM carvedilol 25 mg tablet 25 mg PO BID losartan 100 mg tablet 100 mg PO DAILY loratadine 10 mg Tablet 10 mg PO DAILY esomeprazole magnesium [Nexium] 20 mg Capsule,Delayed Release(Dr/Ec) 20 mg PO DAILY cholecalciferol (vitamin D3) 25 mcg (1,000 unit) Capsule 25 mcg PO DAILY doxazosin 4 mg tablet 4 mg PO BID oxybutynin chloride 10 mg tablet extended release 24hr 10 mg PO DAILY timolol maleate 0.5 % drops 1 drp LEFT EYE DAILY rosuvastatin 20 mg tablet 20 mg PO DAILY omega-3 fatty acids-vitamin E 1,000 mg Capsule 1 cap PO DAILY infliximab [Remicade] 100 mg recon soln 100 mg IV .Q7W Patient Comments: INFUSE 10MG/KG IV EVERY 7 WEEKS. DUE ON Saturday09/06/23 potassium chloride 10 mEq tablet,ER particles/crystals 10 meq PO DAILY guaifenesin [Mucus Relief ER] 1,200 mg Tablet Extended Release 12hr 1,200 mg PO BID Qty: 20 0RF doxycycline hyclate 100 mg tablet 100 mg PO BID 14 Days Qty: 28 0RF dexamethasone 6 mg tablet 6 mg PO DAILY Qty: 7 0RF apixaban 5 mg tablet 5 mg PO BID Qty: 180 3RF amlodipine 10 mg tablet 5 mg PO DAILY Qty: 90 3RF hydralazine 100 mg tablet 100 mg PO TID Qty: 270 3RF montelukast 10 mg tablet 10 mg PO QPM Qty: 30 3RF isosorbide mononitrate 60 mg tablet extended release 24 hr 60 mg PO BID Qty: 90 3RF amiodarone 200 mg tablet See Rx Instructions .ROUTE .COMPLEX Qty: 45 3RF Dose Instruction: Take 1/2 (one-half) tablet by mouth once daily Patient Comments: PT IS NOT SURE OF THE DOSAGE Rx Instructions: Take 1/2 (one-half) tablet by mouth once daily Primary Care Provider: Jayme Yang Referrals: Jayme Yang MD [Primary Care Provider] - What to do if you have Problems For any increased pain, shortness of breath, bleeding, nausea or vomiting, chestpain, or any unexpected problems, contact your Primary Care Provider. Call [facility] ([phone]) or report to the closest Emergency Room. Call 911 if necessary. 09/20/23 1528 <Electronically signed by Jonathan Lopez MD> Cosigner Signature (if applicable): CC: Dr. Jayme Yang MD ~ Signed [facility] Work Phone: 1(677) 529-760012-07-2023 Discharge summary Author Laureano Lima [facility] September 05, 2023 9:48am Note Date/Time September 05, 2023 9 :43am [facility] Medical Records Department [address] [place] [address] Discharge Summary 09/05/23 0943 MR#: [id number] Acct: [id number] Name: MEGAN GIMENEZ Rep #:[id number] : 1945 78 From: Laureano Lima MD PCP: Dr. Jayme Yang MD Status:ADM I N Location: ICU ICU10-1 Providers Date of Admission: 09/04/23 Date of Discharge: 09/05/23 Primary Care Physician: Dr. Jayme Yang MD Reason For Visit: COVID 19, ACUTE BRONCHITIS W/BRONCHOSPASM & GEN Diagnosis Discharge Diagnosis (1) COVID-19: Status: Acute Code(s): U07.1 - COVID-19 (2) Acute bronchitis with bronchospasm: Status: Acute Code(s): J20.9 - Acute bronchitis, unspecified (3) Acute respiratory insufficiency: Status: Acute Code(s): R06.89 - Other abnormalities of breathing (4) Cancer of prostate with intermediate recurrence risk (stage T2b-c or Gleason7 or PSA 10-20): Status: Acute Code(s): C61 - Malignant neoplasm of prostate Plan Patient is a 78-year-old gentleman admitted with 1 week history of shortness of breath with myalgias. Diagnosed with acute COVID 19 admitted to monitored bed nursing floor for further management 1. Acute COVID 19 acute hypoxic renal insufficiency ? With significant symptoms including myalgias admitted to regular nursing floorpatient started on Decadron supplemental oxygen ? 09/05/2023. Patient remains off oxygen patient will be assessed for possible discharge 2. Prostate cancer ? Treated with radiation and apparently scheduled to initiate chemotherapy in a week* 3. Chronic kidney disease stage III ? Kidney function at baseline 4. Diabetes mellitus type 2 ? Patient oral hypoglycemic agent held, please on Accu-Cheks before meals and atbedtime with sliding scale coverage 5. Hypertension - Blood pressure controlled, home medications continued with dose adjustment as needed 6. Dyslipidemia -Patient is on statin therapy, continued at home dose 7. Chronic A-fib ? Rate controlled on amiodarone, on systemic anticoagulation with apixaban 8. Moderate intermittent asthma ? Did continue patient bronchodilator treatment regimen 9. Class I obesity with BMI of 33.3 ? Complicating care weight loss advised 10. Rheumatoid arthritis ? Patient is on infliximab 11. Dementia ? Supportive care 12. DVT prophylaxis ? Patient on apixaban Time spent in the patient's overall evaluation,decision-making process, review of diagnostic data, adjustment of management, discussion with other providers, nursing nursing and ancillary staff involved in patient's care documentation, 40 Minutes Medications at Discharge Home Medications glimepiride 2 mg tablet 2 mg PO QHS diabetes 01/22/18 bsobrtrz-xg-bzchi 300 mcg-K 60 mcg-lycop 600 mcg-lutein 300 mcg tablet (Centrum Silver Men) 1 ea PO DAILY supplement 09/17/18 duloxetine 60 mg capsule,delayed release (Cymbalta) 60 mg PO DAILY depression 06/02/19 buspirone 7.5 mg tablet 7.5 mg PO BID depression/anxiety 04/12/21 calcium carbonate 600 mg-vitamin D3 5 mcg (200 unit) tablet 1 tab PO DAILY supplement 12/21/21 latanoprost 0.005 % eye drops 1 drp LEFT EYE QPM eye health 12/22/21 gabapentin 600 mg tablet 300 mg PO BID neuropathy 01/26/22 carvedilol 25 mg tablet 25 mg PO BID HEART 10/02/22 cholecalciferol (vitamin D3) 25 mcg (1,000 unit) capsule 25 mcg PO DAILY SUPPLEMENT 10/02/22 doxazosin 4 mg tablet 4 mg PO BID BLOOD PRESSURE 10/02/22 esomeprazole magnesium 20 mg capsule,delayed release (Nexium) 20 mg PO DAILY GERD 10/02/22 loratadine 10 mg tablet 10 mg PO DAILY ALLERGIES 10/02/22 losartan 100 mg tablet 100 mg PO DAILY BLOOD PRESSURE 10/02/22 oxybutynin chloride 10 mg tablet,extended release 24 hr 10 mg PO DAILY bladder 10/04/22 timolol maleate 0.5 % eye drops 1 drp LEFT EYE DAILY EYE HEALTH 10/04/22 apixaban 5 mg tablet 5 mg PO BID afib #180 tabs 12/03/22 rosuvastatin 20 mg tablet 20 mg PO DAILY cholesterol 03/21/23 omega-3 fatty acids-vitamin E 1,000 mg capsule 1 cap PO DAILY Check with primarydoctor 03/22/23 fluticasone furoate 200 mcg-vilanterol 25 mcg/dose inhalation powder (Breo Ellipta) 1 inh inhalation QDAY #60 ea 04/04/23 amlodipine 10 mg tablet 5 mg (1/2 x 10 mg) PO DAILY #90 tabs 05/08/23 triamcinolone acetonide 55 mcg nasal spray aerosol (Nasacort) 2 spray intranasalBID 05/21/23 infliximab 100 mg intravenous solution (Remicade) 100 mg IV .Q7W crohns 05/24/23 hydralazine 100 mg tablet 100 mg PO TID BLOOD PRESSURE #270 tabs 06/14/23 isosorbide mononitrate 60 mg tablet,extended release 24 hr 60 mg PO BID BLOOD PRESSURE #90 tabs 07/25/23 montelukast 10 mg tablet 10 mg PO QPM #30 tabs 07/25/23 amiodarone 200 mg tablet See Rx Instructions .Route .COMPLEX #45 TABLETS 08/28/23 potassium chloride 10 mEq tablet,extended release(part/cryst) 10 meq PO DAILY supplement 09/04/23 dexamethasone 6 mg tablet 6 mg PO DAILY #7 tabs 09/05/23 doxycycline hyclate 100 mg tablet 100 mg PO BID 14 days #28 tabs 09/05/23 guaifenesin 1,200 mg tablet, extended release 12 hr (Mucus Relief ER) 1,200 mg PO BID #20 tabs 09/05/23 Hospital Course Summary of Care Provided Minutes Spent on Discharge: 40 Physical Exam Narrative GENERAL: cooperative HEENT: Atraumatic; normocephalic EYES; Anicteric, Normal Conjunctiva NECK; supple, normal thyroid, RESPIRATORY: Diminished to auscultation CARDIOVASCULAR: Regular S1 S2, GI: soft, normoactive bowel sounds, : No Renal angle tenderness; EXTREMITIES: No edema, no clubbing, MUSCULOSKELETAL: no muscle wasting NEURO: Awake; no lateralizing signs. SKIN: No Rash PSYCH; Flat affect Weight / BMI Weight Weight: 96.1 kg Body Mass Index (BMI) 33.1 ABG / Lab / Microbiology Data 09/05/23 04:20 09/05/23 04:20 Laboratory: Laboratory Results - last 24 hr 09/04/23 11:38: POC Glucose 198 H 09/04/23 16:45: POC Glucose 212 H 09/04/23 22:46: POC Glucose 201 H 09/05/23 04:20: WBC 7.3, RBC 4.22 L, Hgb 12.7 L, Hct 38.4 L, MCV 91.0, MCH 30.1,MCHC 33.1, RDW Std Deviation 49.4 H, RDW Coeff of Azeem 14.8 H, Plt Count 192, MPV10.9, Immature Gran % (Auto) 0.700, Neut % (Auto) 77.9 H, Lymph % (Auto) 16.7 L,[place] % (Auto) 4.6, Eos % (Auto) 0.0, Baso % (Auto) 0.1, Absolute Neuts (auto) 5.7, Absolute Lymphs (auto) 1.22, Nucleated RBC % 0, Sodium 139, Potassium 3.7, Chloride 105, Carbon Dioxide 27.0, Anion Gap 7, BUN 36 H, Creatinine 1.54 H, Estim Creat Clear Calc 36.36, Est GFR (MDRD) Af Amer 56 L, Est GFR (MDRD) Non-Af 47 L, BUN/Creatinine Ratio 23.4 H, Glucose 199 H, Calcium 8.6, Phosphorus 4.8, Magnesium 2.1 09/05/23 06:44: POC Glucose 188 H Microbiology: Microbiology 09/03/23 23:41 Nasal Secretion SARS-CoV-2 & FLU Antigen (Rapid) - Final SARS-CoV-2 (COVID 19) D/C Instructions Discharge Diet: 1800 Calorie Control Diet Discharge Activity: Return to Normal Activity Call your doctor if you observe: Fever of 101 or Higher, Shortness of breath, Fainting spells and Chest pain Meaningful Use Info Meaningful Use Diagnoses (Choose all that apply): None applicable Discharge Plan Admission Admit Date/Time: 09/04/23 02:36 Attending Provider: Laureano Lima Primary Care Provider: Jayme Yang Consulting Providers: Laureano Lucero Discharge Orders/Prescriptions Prescriptions: New guaifenesin [Mucus Relief ER] 1,200 mg Tablet Extended Release 12hr 1,200 mg PO BID Qty: 20 0RF doxycycline hyclate 100 mg tablet 100 mg PO BID 14 Days Qty: 28 0RF dexamethasone 6 mg tablet 6 mg PO DAILY Qty: 7 0RF Continued duloxetine [Cymbalta] 60 mg capsule,delayed release(DR/EC) 60 mg PO DAILY gabapentin 600 mg tablet 300 mg PO BID fluticasone furoate-vilanterol [Breo Ellipta] 200-25 mcg/dose blister with device 1 inh inhalation QDAY Qty: 60 6RF Rx Instructions: after inhalation, rinse mouth with water and spit out; do not swallow triamcinolone acetonide [Nasacort] 55 mcg aerosol,spray 2 spray intranasal BID Rx Instructions: administer into each nostril glimepiride 2 MG tablet 2 mg PO QHS Patient Comments: Centrum Silver Men 1 EACH tablet 1 ea PO DAILY buspirone 7.5 mg tablet 7.5 mg PO BID calcium carbonate-vitamin D3 600 mg-5 mcg (200 unit) Tablet 1 tab PO DAILY latanoprost 0.005 % Drops 1 drp LEFT EYE QPM carvedilol 25 mg tablet 25 mg PO BID losartan 100 mg tablet 100 mg PO DAILY loratadine 10 mg Tablet 10 mg PO DAILY esomeprazole magnesium [Nexium] 20 mg Capsule,Delayed Release(Dr/Ec) 20 mg PO DAILY cholecalciferol (vitamin D3) 25 mcg (1,000 unit) Capsule 25 mcg PO DAILY doxazosin 4 mg tablet 4 mg PO BID oxybutynin chloride 10 mg tablet extended release 24hr 10 mg PO DAILY timolol maleate 0.5 % drops 1 drp LEFT EYE DAILY rosuvastatin 20 mg tablet 20 mg PO DAILY omega-3 fatty acids-vitamin E 1,000 mg Capsule 1 cap PO DAILY infliximab [Remicade] 100 mg recon soln 100 mg IV .Q7W Patient Comments: INFUSE 10MG/KG IV EVERY 7 WEEKS. DUE ON Saturday09/06/23 potassium chloride 10 mEq tablet,ER particles/crystals 10 meq PO DAILY apixaban 5 mg tablet 5 mg PO BID Qty: 180 3RF amlodipine 10 mg tablet 5 mg PO DAILY Qty: 90 3RF hydralazine 100 mg tablet 100 mg PO TID Qty: 270 3RF montelukast 10 mg tablet 10 mg PO QPM Qty: 30 3RF isosorbide mononitrate 60 mg tablet extended release 24 hr 60 mg PO BID Qty: 90 3RF amiodarone 200 mg tablet See Rx Instructions .ROUTE .COMPLEX Qty: 45 3RF Dose Instruction: Take 1/2 (one-half) tablet by mouth once daily Patient Comments: PT IS NOT SURE OF THE DOSAGE Rx Instructions: Take 1/2 (one-half) tablet by mouth once daily Referrals / Follow Up: Jayme Yang MD [Primary Care Provider] - Within 1 Week Disposition Disposition (needs filled in before D/C Order can be placed): Home, Self Care Charges/Coding Visit Charges Inpatient E&M: 11031 Disch Hosp >30min 09/05/23 0948 <Electronically signed by Laureano Lima MD> Cosigner Signature (if applicable): CC: Dr. aLureano Lima MD; Dr. Jayme Yang MD~ Signed [facility] Work Phone: 1(359) 841-582712-07-2023 Progress note Author Laureano Lima [facility] September 05, 2023 9:43am Note Date/Time September 05, 2023 9 :43am [facility] Medical Records Department [address] [place] [address] Progress Note - Hospitalist 09/05/23 0942 MR#: [id number] Acct: [id number] Name: MEGAN GIMENEZ Rep #:[id number] : 1945 78 From: Laureano Lima MD PCP: Dr. Jayme Yang MD Status:ADM I N Location: ICU ICU10-1 Reason for Visit Reason for Visit: Diagnoses Malignant neoplasm of prostate (09/04/23) Acute bronchitis, unspecified (09/04/23) Other abnormalities of breathing (09/04/23) COVID-19 (09/04/23) Subjective Subjective Seen remains off oxygen patient be assessed for possible discharge Objective Data Objective Data Vital Signs: Vital Signs Temp Pulse Resp BP Pulse Ox O2 Del Method O2 Flow Rate 97.3 F L 78 18 183/103 H 94 Nasal Cannula 2 09/05/23 04:24 09/05/23 07:39 09/05/23 07:39 09/05/23 06:50 09/05/23 07:39 09/05/23 07:39 09/05/23 07:39 Oxygen Flow Rate (L/min) 2 Oxygen Delivery Method Nasal Cannula Weight: 96.1 kg Body Mass Index (BMI) 33.1 Intake & Output: Intake and Output for Last 24 Hours 09/03/23 09/04/23 09/05/23 23:59 23:59 23:59 Intake Total 1620 / 1620 360 / 360 Output Total 2450 / 2450 300 / 300 Balance -830 / -830 60 / 60 Lab / Micro Data 09/05/23 04:20 09/05/23 04:20 Labs: Laboratory Results - last 24 hr 09/04/23 11:38: POC Glucose 198 H 09/04/23 16:45: POC Glucose 212 H 09/04/23 22:46: POC Glucose 201 H 09/05/23 04:20: WBC 7.3, RBC 4.22 L, Hgb 12.7 L, Hct 38.4 L, MCV 91.0, MCH 30.1,MCHC 33.1, RDW Std Deviation 49.4 H, RDW Coeff of Azeem 14.8 H, Plt Count 192, MPV10.9, Immature Gran % (Auto) 0.700, Neut % (Auto) 77.9 H, Lymph % (Auto) 16.7 L,Concho % (Auto) 4.6, Eos % (Auto) 0.0, Baso % (Auto) 0.1, Absolute Neuts (auto) 5.7, Absolute Lymphs (auto) 1.22, Nucleated RBC % 0, Sodium 139, Potassium 3.7, Chloride 105, Carbon Dioxide 27.0, Anion Gap 7, BUN 36 H, Creatinine 1.54 H, Estim Creat Clear Calc 36.36, Est GFR (MDRD) Af Amer 56 L, Est GFR (MDRD) Non-Af47 L, BUN/Creatinine Ratio 23.4 H, Glucose 199 H, Calcium 8.6, Phosphorus 4.8, Magnesium 2.1 09/05/23 06:44: POC Glucose 188 H Micro: Microbiology 09/03/23 23:41 Nasal Secretion SARS-CoV-2 & FLU Antigen (Rapid) - Final SARS-CoV-2 (COVID 19) Physical Exam Narrative GENERAL: cooperative HEENT: Atraumatic; normocephalic EYES; Anicteric, Normal Conjunctiva NECK; supple, normal thyroid, RESPIRATORY: Diminished to auscultation CARDIOVASCULAR: Regular S1 S2, GI: soft, normoactive bowel sounds, : No Renal angle tenderness; EXTREMITIES: No edema, no clubbing, MUSCULOSKELETAL: no muscle wasting NEURO: Awake; no lateralizing signs. SKIN: No Rash PSYCH; Flat affect Assessment & Plan Assessment/Plan (1) COVID-19: (2) Acute bronchitis with bronchospasm: (3) Acute respiratory insufficiency: (4) Cancer of prostate with intermediate recurrence risk (stage T2b-c or Gleason7 or PSA 10-20): PLAN: Plan Patient is a 78-year-old gentleman admitted with 1 week history of shortness of breath with myalgias. Diagnosed with acute COVID 19 admitted to monitored bed nursing floor for further management 1. Acute COVID 19 acute hypoxic renal insufficiency ? With significant symptoms including myalgias admitted to regular nursing floorpatient started on Decadron supplemental oxygen ? 09/05/2023. Patient remains off oxygen patient will be assessed for possible discharge 2. Prostate cancer ? Treated with radiation and apparently scheduled to initiate chemotherapy in a week* 3. Chronic kidney disease stage III ? Kidney function at baseline 4. Diabetes mellitus type 2 ? Patient oral hypoglycemic agent held, please on Accu-Cheks before meals and atbedtime with sliding scale coverage 5. Hypertension - Blood pressure controlled, home medications continued with dose adjustment as needed 6. Dyslipidemia -Patient is on statin therapy, continued at home dose 7. Chronic A-fib ? Rate controlled on amiodarone, on systemic anticoagulation with apixaban 8. Moderate intermittent asthma ? Did continue patient bronchodilator treatment regimen 9. Class I obesity with BMI of 33.3 ? Complicating care weight loss advised 10. Rheumatoid arthritis ? Patient is on infliximab 11. Dementia ? Supportive care 12. DVT prophylaxis ? Patient on apixaban Time spent in the patient's overall evaluation,decision-making process, review of diagnostic data, adjustment of management, discussion with other providers, nursing nursing and ancillary staff involved in patient's care documentation, 40 Minutes Charges/Coding Visit Charges Inpatient E&M: 57142 Subs Hosp L2 09/05/23 0943 <Electronically signed by Laureano Lima MD> Cosigner Signature (if applicable): CC: ~ Signed [facility] Work Phone: 1(685) 152-957212-06-2023 Progress note Author Laureano [facility] September 04, 2023 9:17am Note Date/Time September 04, 2023 7 :48am [facility] Medical Records Department [address] [place] [id number] Progress Note - Hospitalist 09/04/23 0747 MR#: [id number] Acct: [id number] Name: MEGAN GIMENEZ Rep #:[id number] : 1945 78 From: Laureano Lima MD PCP: Dr. Jayme Yang MD Status:ADM I N Location: ICU ICU10-1 Reason for Visit Reason for Visit: Diagnoses Malignant neoplasm of prostate (09/04/23) Acute bronchitis, unspecified (09/04/23) Other abnormalities of breathing (09/04/23) COVID-19 (09/04/23) Subjective Subjective Patient is a 78-year-old gentleman admitted with 1 week history of shortness of breath with myalgias. Diagnosed with acute COVID 19 admitted to monitored bed nursing floor for further management Objective Data Objective Data Vital Signs: Vital Signs Temp Pulse Resp BP Pulse Ox O2 Del Method O2 Flow Rate 97.3 F L 68 22 H 204/99 H 97 Nasal Cannula 2.5 09/04/23 06:41 09/04/23 06:41 09/04/23 06:41 09/04/23 06:41 09/04/23 06:41 09/04/23 06:41 09/04/23 06:41 Oxygen Flow Rate (L/min) 2.5 Oxygen Delivery Method Nasal Cannula Weight: 96.1 kg Body Mass Index (BMI) 33.1 Intake & Output: Intake and Output for Last 24 Hours 09/02/23 09/03/23 09/04/23 23:59 23:59 23:59 Output Total 600 / 600 Balance -600 / -600 Lab / Micro Data 09/03/23 23:35 09/03/23 23:35 Labs: Laboratory Results - last 24 hr 09/03/23 23:35: WBC 5.3, RBC 4.25 L, Hgb 12.9 L, Hct 39.1 L, MCV 92.0, MCH 30.4,MCHC 33.0, RDW Std Deviation 50.4 H, RDW Coeff of Azeem 14.8 H, Plt Count 191, MPV11.1, Immature Gran % (Auto) 1.700 H, Neut % (Auto) 60.4, Lymph % (Auto) 25.6, Concho % (Auto) 11.9 H, Eos % (Auto) 0.0, Baso % (Auto) 0.4, Absolute Neuts (auto)3.2, Absolute Lymphs (auto) 1.35, Nucleated RBC % 0, Sodium 138, Potassium 3.7, Chloride 105, Carbon Dioxide 26.0, Anion Gap 7, BUN 24 H, Creatinine 1.53 H, Estim Creat Clear Calc 35.33, Est GFR (MDRD) Af Amer 57 L, Est GFR (MDRD) Non-Af47 L, BUN/Creatinine Ratio 15.7, Glucose 184 H, Calcium 8.8, Magnesium 2.2, B-Natriuretic Peptide 65.2 Micro: Microbiology 09/03/23 23:41 Nasal Secretion SARS-CoV-2 & FLU Antigen (Rapid) - Final SARS-CoV-2 (COVID 19) ABG Data ABG results: ABG 09/04/23 03:33 Specimen Type ART Sample Site L Radial pH 7.44 Bicarbonate Actual 26.1 H Total CO2 27 Base Excess 2 O2 Saturation 89 L O2 % 21.0 ABG pCO2 38.2 ABG pO2 55 L Jasbir Test Positive O2 Delivery Device Room Air Vent Mode Not entered Radiography Diagnostic Testing: Radiology Impression Chest X-Ray 09/03/23 23:50 IMPRESSION: No evidence of acute cardiopulmonary disease. Electronically Signed: Tejas Selby DO at 0:12 EST , Physical Exam Narrative GENERAL: cooperative HEENT: Atraumatic; normocephalic EYES; Anicteric, Normal Conjunctiva NECK; supple, normal thyroid, RESPIRATORY: Diminished to auscultation CARDIOVASCULAR: Regular S1 S2, GI: soft, normoactive bowel sounds, : No Renal angle tenderness; EXTREMITIES: No edema, no clubbing, MUSCULOSKELETAL: no muscle wasting NEURO: Awake; no lateralizing signs. SKIN: No Rash PSYCH; Flat affect Assessment & Plan Assessment/Plan (1) COVID-19: (2) Acute bronchitis with bronchospasm: (3) Acute respiratory insufficiency: (4) Cancer of prostate with intermediate recurrence risk (stage T2b-c or Gleason7 or PSA 10-20): PLAN: Plan Patient is a 78-year-old gentleman admitted with 1 week history of shortness of breath with myalgias. Diagnosed with acute COVID 19 admitted to monitored bed nursing floor for further management 1. Acute COVID 19 acute hypoxic renal insufficiency ? With significant symptoms including myalgias admitted to regular nursing floorpatient started on Decadron P[place] oxygen 2. Prostate cancer ? Treated with radiation and apparently scheduled to initiate chemotherapy in a week* 3. Chronic kidney disease stage III ? Kidney function at baseline 4. Diabetes mellitus type 2 ? Patient oral hypoglycemic agent held, please on Accu-Cheks before meals and atbedtime with sliding scale coverage 5. Hypertension - Blood pressure controlled, home medications continued with dose adjustment as needed 6. Dyslipidemia -Patient is on statin therapy, continued at home dose 7. Chronic A-fib ? Rate controlled on amiodarone, on systemic anticoagulation with apixaban 8. Moderate intermittent asthma ? Did continue patient bronchodilator treatment regimen 9. Class I obesity with BMI of 33.3 ? Complicating care weight loss advised 10. Rheumatoid arthritis ? Patient is on infliximab 11. Dementia ? Supportive care 12. DVT prophylaxis ? Patient on apixaban Time spent in the patient's overall evaluation,decision-making process, review of diagnostic data, adjustment of management, discussion with other providers, nursing nursing and ancillary staff involved in patient's care documentation, 55 Minutes Advance planning; did discuss with the patient and family regarding advanced directives as well as CODE STATUS. Did explain the various scenarios involved (FULL CODE, DNR CCA, DNR CCA with no intubation, and DNR CC and what each meant) patient elected to be DNR CCA no intubation. Order was placed. Time spent on discussion 18 minutes. Charges/Coding Visit Charges Inpatient E&M: 81338 Subs Hosp L3 Procedures Hospitalists Procedures: 73590 Advncd Care Plan 30 Min 09/04/23 0917 <Electronically signed by Laureano Lima MD> Cosigner Signature (if applicable): CC: ~ Signed [facility] Work Phone: 1([phone]) 321-316512-06-2023 History and physical note Author Laureano [facility] September 04, 2023 5:36am Note Date/Time September 04, 2023 2 :36am [facility] Medical Records Department [address] [place] [id number] H&P Exam - Hospitalist 09/04/23 0158 MR#: [id number] Acct: [id number] Name: MEGAN GIMENEZ Rep #:[id number] : 1945 78 From: Laureano Hampton DO PCP: Dr. Jayme Yang MD Status:ADM I N Location: ICU ICU10-1 HPI - General General Date of Admission: 09/04/23 Date of Service: 09/04/23 Chief Complaint: SOB, cough and body aches with generalized weakness. HPI Narrative MEGAN IGMENEZ, is a 78 M with a past medical history of hypertension, hyperlipidemia, diabetes mellitus type 2; of unknown control, remote history of tobacco abuse (quit 1975), obesity; with BMI of 35.9 this admission, obstructive sleep apnea, chronic atrial fibrillation; on amiodarone and apixaban, coronary artery disease; status post left heart cath (2021) with previously documented allergy to aspirin, history of nonrheumatic aortic valve stenosis, pulmonary hypertension, history of asthma, depression with anxiety, osteoarthritis; with history of back surgery x 2, history of gout, history of COVID-19 (2019) and history of prostate cancer; with the patient just having started radiation therapy and about to begin chemotherapy planned for next week who presents to [facility] ER complaining of shortness of breath, cough and bodyaches with generalized weakness. Mr. Gimenez reports his symptoms began approximately 5 to 7 days prior to admission with a gradual onset of dyspnea on exertion, cough and congestion along with 3+ bilateral lower extremity edema that is equal and symmetric. Then over the past 1 to 2 days he has noted severegeneralized weakness with bouts of difficult breathing even at rest it is now caused him to come in to seek further evaluation and treatment. He admits his has been sick with a viral respiratory illness. He denies associated fever, chills, nausea, vomiting, chest pain or abdominal pain but he does admit to rhinorrhea, severe myalgias and generalized weakness. In the ER his assay returned positive for COVID-19 in the setting of clinical suspicion for acute bronchitis with bronchospasm and acute hypoxic respiratory insufficiency and he was then admitted to the general medical floor under contact and droplet precautions for a stay that is expected to be greater than 48 hours. [facility] Medical History (Updated 09/04/23 @ 02:[address] Laureano Lucero, DO) Abnormal stress test Acute bronchitis with bronchospasm Acute respiratory insufficiency Ambulates with cane Anxiety Aortic stenosis Arthritis Asthma Asymptomatic hypertensive urgency Atherosclerotic heart disease of [place] coronary artery without angina pectoris Atrial fibrillation with RVR Back pain Bronchitis CAD in [place] artery Cancer Cardiology follow-up encounter Chronic anticoagulation Closed head injury Colitis Concussion Covid-19 COVID-19 virus infection CPAP (continuous positive airway pressure) dependence Dementia Depression Diabetes Diabetes Diverticula of colon DM2 (diabetes mellitus, type 2) Essential hypertension Excessive bleeding Former smoker Gastric reflux Heart failure High cholesterol History of atrial fibrillation History of echocardiogram History of edema History of renal disease History of steroid therapy History of stress test HTN (hypertension) Hyperlipidemia Hypertensive urgency Inflammatory bowel disease Injury of head and neck Intractable pain Kidney stones Loss of consciousness Nonrheumatic aortic (valve) stenosis NSVT (nonsustained ventricular tachycardia) SUPA (obstructive sleep apnea) Paroxysmal atrial fibrillation Prostate cancer Prostate disease Pulmonary hypertension Renal colic on left side Rheumatoid aortitis Rheumatoid arthritis Rhinovirus Sepsis Severe acute respiratory syndrome coronavirus 2 (SARS-CoV-2) infection ruled out Severe sepsis Sleep apnea SOB (shortness of breath) Ureterolithiasis Wears dentures Wears glasses Wears hearing aid Home Medications glimepiride 2 mg tablet 2 mg PO QHS diabetes 01/22/18 [History Last Taken 03/21/23] [id number]-[id number] 300 mcg-K 60 mcg-lycop 600 mcg-lutein 300 mcg tablet (Centrum Silver Men) 1 ea PO DAILY supplement 09/17/18 [History Last Taken 03/21/23] duloxetine 60 mg capsule,delayed release (Cymbalta) 60 mg PO DAILY depression 06/02/19 [History Last Taken 03/21/23] buspirone 7.5 mg tablet 7.5 mg PO BID depression/anxiety 04/12/21 [History Last Taken 03/21/23] calcium carbonate 600 mg-vitamin D3 5 mcg (200 unit) tablet 1 tab PO DAILY supplement 12/21/21 [History Last Taken 03/21/23] latanoprost 0.005 % eye drops 1 drp LEFT EYE QPM eye health 12/22/21 [History Last Taken 03/20/23] gabapentin 600 mg tablet 300 mg PO BID neuropathy 01/26/22 [History Last Taken 03/21/23] carvedilol 25 mg tablet 25 mg PO BID HEART 10/02/22 [History Last Taken 08/07/23] cholecalciferol (vitamin D3) 25 mcg (1,000 unit) capsule 25 mcg PO DAILY SUPPLEMENT 10/02/22 [History Last Taken 10/04/22] doxazosin 4 mg tablet 4 mg PO BID BLOOD PRESSURE 10/02/22 [History Last Taken 03/21/23] esomeprazole magnesium 20 mg capsule,delayed release (Nexium) 20 mg PO DAILY GERD 10/02/22 [History Last Taken 08/07/23] loratadine 10 mg tablet 10 mg PO DAILY ALLERGIES 10/02/22 [History Last Taken 03/21/23] losartan 100 mg tablet 100 mg PO DAILY BLOOD PRESSURE 10/02/22 [History Last Taken 08/07/23] oxybutynin chloride 10 mg tablet,extended release 24 hr 10 mg PO DAILY bladder 10/04/22 [History Last Taken 03/21/23] timolol maleate 0.5 % eye drops 1 drp LEFT EYE DAILY EYE HEALTH 10/04/22 [History Last Taken 03/20/23] apixaban 5 mg tablet 5 mg PO BID afib #180 tabs 12/03/22 [Rx Last Taken 03/21/23] rosuvastatin 20 mg tablet 20 mg PO DAILY cholesterol 03/21/23 [History Last Taken 03/21/23] omega-3 fatty acids-vitamin E 1,000 mg capsule 1 cap PO BID Check with primary doctor 03/22/23 [History Last Taken 03/21/23] fluticasone furoate 200 mcg-vilanterol 25 mcg/dose inhalation powder (Breo Ellipta) 1 inh inhalation QDAY #60 ea 04/04/23 [Rx Last Taken Unknown] amlodipine 10 mg tablet 5 mg (1/2 x 10 mg) PO DAILY #90 tabs 05/08/23 [Rx Last Taken 08/07/23] triamcinolone acetonide 55 mcg nasal spray aerosol (Nasacort) 2 spray intranasalBID 05/21/23 [History Last Taken Unknown] infliximab 100 mg intravenous solution (Remicade) 100 mg IV .Q7W crohns 05/24/23[History Last Taken Unknown] hydralazine 100 mg tablet 100 mg PO TID BLOOD PRESSURE #270 tabs 06/14/23 [Rx Last Taken Unknown] isosorbide mononitrate 60 mg tablet,extended release 24 hr 60 mg PO BID BLOOD PRESSURE #90 tabs 07/25/23 [Rx Last Taken 08/07/23] montelukast 10 mg tablet 10 mg PO QPM #30 tabs 07/25/23 [Rx Last Taken Unknown] amiodarone 200 mg tablet See Rx Instructions .Route .COMPLEX #45 TABLETS 08/28/23 [Rx Last Taken Unknown] potassium chloride 10 mEq tablet,extended release(part/cryst) 10 meq PO DAILY supplement 09/04/23 [History Last Taken Unknown] Allergy/AdvReac Type Severity Reaction Status Date / Time aspirin Allergy Severe Mouth Verified 09/03/23 23:35 swelling donepezil [From Aricept] AdvReac Severe Swelling Verified 09/03/23 23:35 minoxidil AdvReac Severe swelling Verified 09/03/23 23:35 morphine AdvReac Severe UNABLE TO Verified 09/03/23 23:35 URINATE Family History Mother Heart disease Diabetes Father Heart disease Lung disease Brother Heart disease Lung disease Cancer prostate, pancreatic Sister Diabetes Cancer uterine Surgical History Cervical vertebral fusion History of back surgery History of bilateral knee replacement History of cardiac catheterization History of left heart catheterization (LHC) (~12/22/21) History of prostate biopsy History of removal of cyst Hx of colectomy Hx of cystoscopy Hx of surgical procedure Social History Smoking Status: Former smoker how long ago did patient quit smokin, 2ppd second hand exposure: Yes alcohol intake: never substance use type: does not use caffeine: Yes Type: coffee Number of servings: 2 ROS ROS Narrative Review of systems: Constitutional: Patient denies fever or chills. Eyes: Patient denies visual changes. ENT: Patient admits to runny nose but denies sore throat or ear pain. Cardiovascular: Patient denies chest pain or palpitations. Respiratory: Patient admits to dyspnea on exertion that progressed to shortness of breath at rest with a nonproductive cough. Gastrointestinal: Patient denies abdominal pain, diarrhea, nausea or vomiting. Genitourinary: Patient denies dysuria, hematuria or urinary frequency. Musculoskeletal: Patient admits to severe myalgias and generalized weakness withincreasing falls. Integumentary: Patient denies rash. Neurologic: Patient admits to weakness that is generalized and not focal. He denies headache. Hematologic: Patient admits to easy bleeding and easy bruisability as he is on full anticoagulation. Allergic: Patient denies lip swelling, tongue swelling or urticaria. Psychiatric: Patient is tearful and has a depressed affect. 14 point review of systems otherwise negative except for positives noted above in HPI. Vital Signs Vital Signs Vital Signs: 09/03/23 23:18 09/03/23 23:36 09/04/23 00:25 Temperature 97.8 F Temperature Source Oral Pulse Rate 68 65 Respiratory Rate 20 H 23 H Respiratory Effort Short of Breath Respiratory Depth Normal Respiratory Pattern Tachypnea Blood Pressure 179/95 H 195/98 H Blood Pressure Mean 123 130 Pulse Ox 93 92 Oxygen Delivery Method Room Air Room Air Room Air 09/04/23 01:25 Temperature Temperature Source Pulse Rate 71 Respiratory Rate 21 H Respiratory Effort Respiratory Depth Respiratory Pattern Blood Pressure 159/90 H Blood Pressure Mean 113 Pulse Ox 91 Oxygen Delivery Method Room Air Weight Weight: 222 lb 3.615 oz Body Mass Index (BMI) 35.9 Physical Exam Const alert, oriented x3 and average body habitus Constitutional Narrative: Patient is obese, dyspneic at rest and appears acutely ill. General Appearance: cooperative HEENT normocephalic, head/scalp atraumatic, hearing grossly normal bilaterally and moist oral mucous membranes HEENT Narrative: Patient has cobblestoning noted in his posterior pharynx consistent with sinus drainage. Eyes PERRL and EOMs intact bilaterally Neck supple and no JVD Resp Resp Narrative: Patient is noted to be using accessory muscles and is tachypneic at rest with decreased air movement and scattered rhonchi throughout. Cardio regular rate and regular rhythm GI normal to inspection, nondistended, normoactive bowel sounds, soft to palpation,non-tender and non-distended Extremity Extremity Narrative: Patient has 3+ pitting edema in his bilateral lower extremities that is equal and symmetric. Skin Skin Narrative: Patient has no evidence of rash at this time. He does have a pale appearance. Neuro oriented x3, CN's II-XII intact bilaterally, moves all extremities and no focal motor deficits Sensorium / Orientation: awake, alert, oriented to person, oriented to place andoriented to time Speech: speech normal Psych Psych Narrative: Patient is tearful with a depressed affect. Mood & Affect: depressed Results Medical Records Data Attestation: I reviewed the patient's medical records Lab / Micro Data Attestation: I reviewed the patient's lab results. 09/03/23 23:35 09/03/23 23:35 Labs: Laboratory Results - last 24 hr 09/03/23 23:35: WBC 5.3, RBC 4.25 L, Hgb 12.9 L, Hct 39.1 L, MCV 92.0, MCH 30.4,MCHC 33.0, RDW Std Deviation 50.4 H, RDW Coeff of Azeem 14.8 H, Plt Count 191, MPV11.1, Immature Gran % (Auto) 1.700 H, Neut % (Auto) 60.4, Lymph % (Auto) 25.6, [place]cho % (Auto) 11.9 H, Eos % (Auto) 0.0, Baso % (Auto) 0.4, Absolute Neuts (auto)3.2, Absolute Lymphs (auto) 1.35, Nucleated RBC % 0, Sodium 138, Potassium 3.7, Chloride 105, Carbon Dioxide 26.0, Anion Gap 7, BUN 24 H, Creatinine 1.53 H, Estim Creat Clear Calc 35.33, Est GFR (MDRD) Af Amer 57 L, Est GFR (MDRD) Non-Af47 L, BUN/Creatinine Ratio 15.7, Glucose 184 H, Calcium 8.8, Magnesium 2.2, B-Natriuretic Peptide 65.2 Micro: Microbiology 09/03/23 23:41 Nasal Secretion SARS-CoV-2 & FLU Antigen (Rapid) - Final SARS-CoV-2 (COVID 19) Imagaing Radiology Impression Chest X-Ray 09/03/23 23:50 IMPRESSION: No evidence of acute cardiopulmonary disease. Electronically Signed: Tejas Selby DO at 0:12 EST , Assessment & Plan Assessment/Plan (1) COVID-19: (2) Acute bronchitis with bronchospasm: (3) Acute respiratory insufficiency: (4) Cancer of prostate with intermediate recurrence risk (stage T2b-c or Gleason7 or PSA 10-20): PLAN: Plan 1. Acute COVID-19 infection with severe myalgias in elderly, obese patient withmultiple comorbidities - Admit to general medical floor under contact and droplet precautions. Continue IV Decadron begun in the ER and add scheduled andas needed nebulizers. Give vitamin D3, vitamin C and zinc to optimize immune response. Give Tylenol as needed for fever or pain. 2. Acute bronchitis with bronchospasm complicating #1 with patient having been sick for an entire week - Start doxycycline 100 mg IV twice daily. Start Mucinex 600 mg p.o. twice daily to mobilize secretions. 3. Acute hypoxic respiratory insufficiency arising from #1 & #2 - Wean supplemental oxygen as tolerated and monitor for improvement. 4. Known history of prostate cancer; already on radiation with scheduled to start chemotherapy next week compounding #1 - #3 - Patient will likely not be able to safely start chemotherapy until this acute illness resolves. Otherwise continue supportive care. 5. Generalized weakness with ambulatory dysfunction and falls due to #1 - #4 inthe setting of previous back surgeries x 2 and severe osteoarthritis - PT/OT andcase management to consult and treat with help appreciated in advance. 6. Essential hypertension - Continue home medications as previous. Plus give IV hydralazine as needed for systolic blood pressure greater than 160 mmHg. 7. Hyperlipidemia - Resume statin. 8. Chronic atrial fibrillation; on amiodarone and apixaban - Continue amiodarone and apixaban as previous. 9. Diabetes mellitus type 2; of unknown control - ADA diet. Fingerstick blood sugars before every meal and at bedtime plus sliding scale insulin. Check hemoglobin A1c to objectively evaluate quality of diabetic control. 10. DVT prophylaxis - Patient is already on apixaban which will be continued. Total time: Approximately 75 minutes. Charges/Coding Visit Charges Inpatient E&M: 69003 Init Hosp L3 09/04/23 0536 <Electronically signed by Laureano Lucero DO> Cosigner Signature (if applicable): CC: Dr. Laureano Lucero DO; Dr. Jayme Yang MD~ Signed [facility] Work Phone: 1(634) 657-815412-06-2023 History and physical note Author Laureano [facility] September 04, 2023 5:36am Note Date/Time September 04, 2023 2 :36am [facility] Medical Records Department [address] [place] [id number] H&P Exam - Hospitalist 09/04/23 0158 MR#: [id number] Acct: [id number] Name: MEGAN GIMENEZ Rep #:[id number] 10 : 1945 78 From: Laureano Hampton DO PCP: Dr. Jayme Yang MD Status:ADM I N Location: ICU ICU10-1 HPI - General General Date of Admission: 09/04/23 Date of Service: 09/04/23 Chief Complaint: SOB, cough and body aches with generalized weakness. HPI Boogie GIMENEZ, is a 78 M with a past medical history of hypertension, hyperlipidemia, diabetes mellitus type 2; of unknown control, remote history of tobacco abuse (quit 1975), obesity; with BMI of 35.9 this admission, obstructive sleep apnea, chronic atrial fibrillation; on amiodarone and apixaban, coronary artery disease; status post left heart cath (2021) with previously documented allergy to aspirin, history of nonrheumatic aortic valve stenosis, pulmonary hypertension, history of asthma, depression with anxiety, osteoarthritis; with history of back surgery x 2, history of gout, history of COVID-19 (2019) and history of prostate cancer; with the patient just having started radiation therapy and about to begin chemotherapy planned for next week who presents to [facility] ER complaining of shortness of breath, cough and bodyaches with generalized weakness. Mr. Gimenez reports his symptoms began approximately 5 to 7 days prior to admission with a gradual onset of dyspnea on exertion, cough and congestion along with 3+ bilateral lower extremity edema that is equal and symmetric. Then over the past 1 to 2 days he has noted severegeneralized weakness with bouts of difficult breathing even at rest it is now caused him to come in to seek further evaluation and treatment. He admits his has been sick with a viral respiratory illness. He denies associated fever, chills, nausea, vomiting, chest pain or abdominal pain but he does admit to rhinorrhea, severe myalgias and generalized weakness. In the ER his assay returned positive for COVID-19 in the setting of clinical suspicion for acute bronchitis with bronchospasm and acute hypoxic respiratory insufficiency and he was then admitted to the general medical floor under contact and droplet precautions for a stay that is expected to be greater than 48 hours. [facility] Medical History (Updated 09/04/23 @ 02:[address] Laureano Lucero, DO) Abnormal stress test Acute bronchitis with bronchospasm Acute respiratory insufficiency Ambulates with cane Anxiety Aortic stenosis Arthritis Asthma Asymptomatic hypertensive urgency Atherosclerotic heart disease of [place] coronary artery without angina pectoris Atrial fibrillation with RVR Back pain Bronchitis CAD in [place] artery Cancer Cardiology follow-up encounter Chronic anticoagulation Closed head injury Colitis Concussion Covid-19 COVID-19 virus infection CPAP (continuous positive airway pressure) dependence Dementia Depression Diabetes Diabetes Diverticula of colon DM2 (diabetes mellitus, type 2) Essential hypertension Excessive bleeding Former smoker Gastric reflux Heart failure High cholesterol History of atrial fibrillation History of echocardiogram History of edema History of renal disease History of steroid therapy History of stress test HTN (hypertension) Hyperlipidemia Hypertensive urgency Inflammatory bowel disease Injury of head and neck Intractable pain Kidney stones Loss of consciousness Nonrheumatic aortic (valve) stenosis NSVT (nonsustained ventricular tachycardia) SUPA (obstructive sleep apnea) Paroxysmal atrial fibrillation Prostate cancer Prostate disease Pulmonary hypertension Renal colic on left side Rheumatoid aortitis Rheumatoid arthritis Rhinovirus Sepsis Severe acute respiratory syndrome coronavirus 2 (SARS-CoV-2) infection ruled out Severe sepsis Sleep apnea SOB (shortness of breath) Ureterolithiasis Wears dentures Wears glasses Wears hearing aid Home Medications glimepiride 2 mg tablet 2 mg PO QHS diabetes 01/22/18 [History Last Taken 03/21/23] wlizcoku-bt-ctupp 300 mcg-K 60 mcg-lycop 600 mcg-lutein 300 mcg tablet (Centrum Silver Men) 1 ea PO DAILY supplement 09/17/18 [History Last Taken 03/21/23] duloxetine 60 mg capsule,delayed release (Cymbalta) 60 mg PO DAILY depression 06/02/19 [History Last Taken 03/21/23] buspirone 7.5 mg tablet 7.5 mg PO BID depression/anxiety 04/12/21 [History Last Taken 03/21/23] calcium carbonate 600 mg-vitamin D3 5 mcg (200 unit) tablet 1 tab PO DAILY supplement 12/21/21 [History Last Taken 03/21/23] latanoprost 0.005 % eye drops 1 drp LEFT EYE QPM eye health 12/22/21 [History Last Taken 03/20/23] gabapentin 600 mg tablet 300 mg PO BID neuropathy 01/26/22 [History Last Taken 03/21/23] carvedilol 25 mg tablet 25 mg PO BID HEART 10/02/22 [History Last Taken 08/07/23] cholecalciferol (vitamin D3) 25 mcg (1,000 unit) capsule 25 mcg PO DAILY SUPPLEMENT 10/02/22 [History Last Taken 10/04/22] doxazosin 4 mg tablet 4 mg PO BID BLOOD PRESSURE 10/02/22 [History Last Taken 03/21/23] esomeprazole magnesium 20 mg capsule,delayed release (Nexium) 20 mg PO DAILY GERD 10/02/22 [History Last Taken 08/07/23] loratadine 10 mg tablet 10 mg PO DAILY ALLERGIES 10/02/22 [History Last Taken 03/21/23] losartan 100 mg tablet 100 mg PO DAILY BLOOD PRESSURE 10/02/22 [History Last Taken 08/07/23] oxybutynin chloride 10 mg tablet,extended release 24 hr 10 mg PO DAILY bladder 10/04/22 [History Last Taken 03/21/23] timolol maleate 0.5 % eye drops 1 drp LEFT EYE DAILY EYE HEALTH 10/04/22 [History Last Taken 03/20/23] apixaban 5 mg tablet 5 mg PO BID afib #180 tabs 12/03/22 [Rx Last Taken 03/21/23] rosuvastatin 20 mg tablet 20 mg PO DAILY cholesterol 03/21/23 [History Last Taken 03/21/23] omega-3 fatty acids-vitamin E 1,000 mg capsule 1 cap PO BID Check with primary doctor 03/22/23 [History Last Taken 03/21/23] fluticasone furoate 200 mcg-vilanterol 25 mcg/dose inhalation powder (Breo Ellipta) 1 inh inhalation QDAY #60 ea 04/04/23 [Rx Last Taken Unknown] amlodipine 10 mg tablet 5 mg (1/2 x 10 mg) PO DAILY #90 tabs 05/08/23 [Rx Last Taken 08/07/23] triamcinolone acetonide 55 mcg nasal spray aerosol (Nasacort) 2 spray intranasalBID 05/21/23 [History Last Taken Unknown] infliximab 100 mg intravenous solution (Remicade) 100 mg IV .Q7W crohns 05/24/23[History Last Taken Unknown] hydralazine 100 mg tablet 100 mg PO TID BLOOD PRESSURE #270 tabs 06/14/23 [Rx Last Taken Unknown] isosorbide mononitrate 60 mg tablet,extended release 24 hr 60 mg PO BID BLOOD PRESSURE #90 tabs 07/25/23 [Rx Last Taken 08/07/23] montelukast 10 mg tablet 10 mg PO QPM #30 tabs 07/25/23 [Rx Last Taken Unknown] amiodarone 200 mg tablet See Rx Instructions .Route .COMPLEX #45 TABLETS 08/28/23 [Rx Last Taken Unknown] potassium chloride 10 mEq tablet,extended release(part/cryst) 10 meq PO DAILY supplement 09/04/23 [History Last Taken Unknown] Allergy/AdvReac Type Severity Reaction Status Date / Time aspirin Allergy Severe Mouth Verified 09/03/23 23:35 swelling donepezil [From Aricept] AdvReac Severe Swelling Verified 09/03/23 23:35 minoxidil AdvReac Severe swelling Verified 09/03/23 23:35 morphine AdvReac Severe UNABLE TO Verified 09/03/23 23:35 URINATE Family History Mother Heart disease Diabetes Father Heart disease Lung disease Brother Heart disease Lung disease Cancer prostate, pancreatic Sister Diabetes Cancer uterine Surgical History Cervical vertebral fusion History of back surgery History of bilateral knee replacement History of cardiac catheterization History of left heart catheterization (LHC) (~12/22/21) History of prostate biopsy History of removal of cyst Hx of colectomy Hx of cystoscopy Hx of surgical procedure Social History Smoking Status: Former smoker how long ago did patient quit smokin, 2ppd second hand exposure: Yes alcohol intake: never substance use type: does not use caffeine: Yes Type: coffee Number of servings: 2 ROS ROS Narrative Review of systems: Constitutional: Patient denies fever or chills. Eyes: Patient denies visual changes. ENT: Patient admits to runny nose but denies sore throat or ear pain. Cardiovascular: Patient denies chest pain or palpitations. Respiratory: Patient admits to dyspnea on exertion that progressed to shortness of breath at rest with a nonproductive cough. Gastrointestinal: Patient denies abdominal pain, diarrhea, nausea or vomiting. Genitourinary: Patient denies dysuria, hematuria or urinary frequency. Musculoskeletal: Patient admits to severe myalgias and generalized weakness withincreasing falls. Integumentary: Patient denies rash. Neurologic: Patient admits to weakness that is generalized and not focal. He denies headache. Hematologic: Patient admits to easy bleeding and easy bruisability as he is on full anticoagulation. Allergic: Patient denies lip swelling, tongue swelling or urticaria. Psychiatric: Patient is tearful and has a depressed affect. 14 point review of systems otherwise negative except for positives noted above in HPI. Vital Signs Vital Signs Vital Signs: 09/03/23 23:18 09/03/23 23:36 09/04/23 00:25 Temperature 97.8 F Temperature Source Oral Pulse Rate 68 65 Respiratory Rate 20 H 23 H Respiratory Effort Short of Breath Respiratory Depth Normal Respiratory Pattern Tachypnea Blood Pressure 179/95 H 195/98 H Blood Pressure Mean 123 130 Pulse Ox 93 92 Oxygen Delivery Method Room Air Room Air Room Air 09/04/23 01:25 Temperature Temperature Source Pulse Rate 71 Respiratory Rate 21 H Respiratory Effort Respiratory Depth Respiratory Pattern Blood Pressure 159/90 H Blood Pressure Mean 113 Pulse Ox 91 Oxygen Delivery Method Room Air Weight Weight: 222 lb 3.615 oz Body Mass Index (BMI) 35.9 Physical Exam Const alert, oriented x3 and average body habitus Constitutional Narrative: Patient is obese, dyspneic at rest and appears acutely ill. General Appearance: cooperative HEENT normocephalic, head/scalp atraumatic, hearing grossly normal bilaterally and moist oral mucous membranes HEENT Narrative: Patient has cobblestoning noted in his posterior pharynx consistent with sinus drainage. Eyes PERRL and EOMs intact bilaterally Neck supple and no JVD Resp Resp Narrative: Patient is noted to be using accessory muscles and is tachypneic at rest with decreased air movement and scattered rhonchi throughout. Cardio regular rate and regular rhythm GI normal to inspection, nondistended, normoactive bowel sounds, soft to palpation,non-tender and non-distended Extremity Extremity Narrative: Patient has 3+ pitting edema in his bilateral lower extremities that is equal and symmetric. Skin Skin Narrative: Patient has no evidence of rash at this time. He does have a pale appearance. Neuro oriented x3, CN's II-XII intact bilaterally, moves all extremities and no focal motor deficits Sensorium / Orientation: awake, alert, oriented to person, oriented to place andoriented to time Speech: speech normal Psych Psych Narrative: Patient is tearful with a depressed affect. Mood & Affect: depressed Results Medical Records Data Attestation: I reviewed the patient's medical records Lab / Micro Data Attestation: I reviewed the patient's lab results. 09/03/23 23:35 09/03/23 23:35 Labs: Laboratory Results - last 24 hr 09/03/23 23:35: WBC 5.3, RBC 4.25 L, Hgb 12.9 L, Hct 39.1 L, MCV 92.0, MCH 30.4,MCHC 33.0, RDW Std Deviation 50.4 H, RDW Coeff of Azeem 14.8 H, Plt Count 191, MPV11.1, Immature Gran % (Auto) 1.700 H, Neut % (Auto) 60.4, Lymph % (Auto) 25.6, [place] % (Auto) 11.9 H, Eos % (Auto) 0.0, Baso % (Auto) 0.4, Absolute Neuts (auto)3.2, Absolute Lymphs (auto) 1.35, Nucleated RBC % 0, Sodium 138, Potassium 3.7, Chloride 105, Carbon Dioxide 26.0, Anion Gap 7, BUN 24 H, Creatinine 1.53 H, Estim Creat Clear Calc 35.33, Est GFR (MDRD) Af Amer 57 L, Est GFR (MDRD) Non-Af47 L, BUN/Creatinine Ratio 15.7, Glucose 184 H, Calcium 8.8, Magnesium 2.2, B-Natriuretic Peptide 65.2 Micro: Microbiology 09/03/23 23:41 Nasal Secretion SARS-CoV-2 & FLU Antigen (Rapid) - Final SARS-CoV-2 (COVID 19) Imagaing Radiology Impression Chest X-Ray 09/03/23 23:50 IMPRESSION: No evidence of acute cardiopulmonary disease. Electronically Signed: Tejas Selby DO at 0:12 EST Reading Location ID and State: [facility] / [place] Tel , Service support , Assessment & Plan Assessment/Plan (1) COVID-19: (2) Acute bronchitis with bronchospasm: (3) Acute respiratory insufficiency: (4) Cancer of prostate with intermediate recurrence risk (stage T2b-c or Gleason7 or PSA 10-20): PLAN: Plan 1. Acute COVID-19 infection with severe myalgias in elderly, obese patient withmultiple comorbidities - Admit to general medical floor under contact and droplet precautions. Continue IV Decadron begun in the ER and add scheduled andas needed nebulizers. Give vitamin D3, vitamin C and zinc to optimize immune response. Give Tylenol as needed for fever or pain. 2. Acute bronchitis with bronchospasm complicating #1 with patient having been sick for an entire week - Start doxycycline 100 mg IV twice daily. Start Mucinex 600 mg p.o. twice daily to mobilize secretions. 3. Acute hypoxic respiratory insufficiency arising from #1 & #2 - Wean supplemental oxygen as tolerated and monitor for improvement. 4. Known history of prostate cancer; already on radiation with scheduled to start chemotherapy next week compounding #1 - #3 - Patient will likely not be able to safely start chemotherapy until this acute illness resolves. Otherwise continue supportive care. 5. Generalized weakness with ambulatory dysfunction and falls due to #1 - #4 inthe setting of previous back surgeries x 2 and severe osteoarthritis - PT/OT andcase management to consult and treat with help appreciated in advance. 6. Essential hypertension - Continue home medications as previous. Plus give IV hydralazine as needed for systolic blood pressure greater than 160 mmHg. 7. Hyperlipidemia - Resume statin. 8. Chronic atrial fibrillation; on amiodarone and apixaban - Continue amiodarone and apixaban as previous. 9. Diabetes mellitus type 2; of unknown control - ADA diet. Fingerstick blood sugars before every meal and at bedtime plus sliding scale insulin. Check hemoglobin A1c to objectively evaluate quality of diabetic control. 10. DVT prophylaxis - Patient is already on apixaban which will be continued. Total time: Approximately 75 minutes. Charges/Coding Visit Charges Inpatient E&M: 88586 Init Hosp L3 09/04/23 0536 <Electronically signed by Laureano Lucero DO> Cosigner Signature (if applicable): CC: Dr. Laureano Lucero DO; Dr. Jayme Yang MD~ Signed [facility] Work Phone: 1(290) 569-376112-06-2023 Discharge summary Author Mauricio Soto [facility] September 04, 2023 2:09am Note Date/Time September 04, 2023 2 :00am [facility] Medical Records Department [address] [place] [address] Emergency Department Summary 09/04/23 MR#: [id number] Acct: [id number] Name: MEGAN GIMENEZ Rep #:[id number] 07 : 1945 78 From: Mauricio Soto DO PCP: Dr. Jayme Yang MD Status:REG E R Location: ED HPI History of Present Illness Chief Complaint: Shortness of Breath Informant: patient Narrative Narrative: Patient is a 78-year-old male with past medical history of hypertension hyperlipidemia and prostate cancer who just recently started radiation therapy. He states his has been sick for the past week with cough and congestion. He states over the past 5 to 7 days he is also had congestion and cough and shortness of breath. He states that over the last 1 to 2 days he has been having increased generalized weakness and bouts of difficulty breathing. Secondary to this he comes into the ER for evaluation. [facility] Medical History Abnormal stress test Acute bronchitis with bronchospasm Acute respiratory insufficiency Ambulates with cane Anxiety Aortic stenosis Arthritis Asthma Asymptomatic hypertensive urgency Atherosclerotic heart disease of [place] coronary artery without angina pectoris Atrial fibrillation with RVR Back pain Bronchitis CAD in [place] artery Cancer Cardiology follow-up encounter Chronic anticoagulation Closed head injury Colitis Concussion Covid-19 COVID-19 virus infection CPAP (continuous positive airway pressure) dependence Dementia Depression Diabetes Diabetes Diverticula of colon DM2 (diabetes mellitus, type 2) Essential hypertension Excessive bleeding Former smoker Gastric reflux Heart failure High cholesterol History of atrial fibrillation History of echocardiogram History of edema History of renal disease History of steroid therapy History of stress test HTN (hypertension) Hyperlipidemia Hypertensive urgency Inflammatory bowel disease Injury of head and neck Intractable pain Kidney stones Loss of consciousness Nonrheumatic aortic (valve) stenosis NSVT (nonsustained ventricular tachycardia) SUPA (obstructive sleep apnea) Paroxysmal atrial fibrillation Prostate cancer Prostate disease Pulmonary hypertension Renal colic on left side Rheumatoid aortitis Rheumatoid arthritis Rhinovirus Sepsis Severe acute respiratory syndrome coronavirus 2 (SARS-CoV-2) infection ruled out Severe sepsis Sleep apnea SOB (shortness of breath) Ureterolithiasis Wears dentures Wears glasses Wears hearing aid Home Medications glimepiride 2 mg tablet 2 mg PO QHS diabetes 01/22/18 [History Last Taken 03/21/23] gcuffpnh-cg-sdwhi 300 mcg-K 60 mcg-lycop 600 mcg-lutein 300 mcg tablet (Centrum Silver Men) 1 ea PO DAILY supplement 09/17/18 [History Last Taken 03/21/23] duloxetine 60 mg capsule,delayed release (Cymbalta) 60 mg PO DAILY depression 06/02/19 [History Last Taken 03/21/23] buspirone 7.5 mg tablet 7.5 mg PO BID depression/anxiety 04/12/21 [History Last Taken 03/21/23] calcium carbonate 600 mg-vitamin D3 5 mcg (200 unit) tablet 1 tab PO DAILY supplement 12/21/21 [History Last Taken 03/21/23] latanoprost 0.005 % eye drops 1 drp LEFT EYE QPM eye health 12/22/21 [History Last Taken 03/20/23] gabapentin 600 mg tablet 300 mg PO BID neuropathy 01/26/22 [History Last Taken 03/21/23] carvedilol 25 mg tablet 25 mg PO BID HEART 10/02/22 [History Last Taken 08/07/23] cholecalciferol (vitamin D3) 25 mcg (1,000 unit) capsule 25 mcg PO DAILY SUPPLEMENT 10/02/22 [History Last Taken 10/04/22] doxazosin 4 mg tablet 4 mg PO BID BLOOD PRESSURE 10/02/22 [History Last Taken 03/21/23] esomeprazole magnesium 20 mg capsule,delayed release (Nexium) 20 mg PO DAILY GERD 10/02/22 [History Last Taken 08/07/23] loratadine 10 mg tablet 10 mg PO DAILY ALLERGIES 10/02/22 [History Last Taken 03/21/23] losartan 100 mg tablet 100 mg PO DAILY BLOOD PRESSURE 10/02/22 [History Last Taken 08/07/23] oxybutynin chloride 10 mg tablet,extended release 24 hr 10 mg PO DAILY bladder 10/04/22 [History Last Taken 03/21/23] timolol maleate 0.5 % eye drops 1 drp LEFT EYE DAILY EYE HEALTH 10/04/22 [History Last Taken 03/20/23] apixaban 5 mg tablet 5 mg PO BID afib #180 tabs 12/03/22 [Rx Last Taken 03/21/23] rosuvastatin 20 mg tablet 20 mg PO DAILY cholesterol 03/21/23 [History Last Taken 03/21/23] omega-3 fatty acids-vitamin E 1,000 mg capsule 1 cap PO BID Check with primary doctor 03/22/23 [History Last Taken 03/21/23] fluticasone furoate 200 mcg-vilanterol 25 mcg/dose inhalation powder (Breo Ellipta) 1 inh inhalation QDAY #60 ea 04/04/23 [Rx Last Taken Unknown] amlodipine 10 mg tablet 5 mg (1/2 x 10 mg) PO DAILY #90 tabs 05/08/23 [Rx Last Taken 08/07/23] triamcinolone acetonide 55 mcg nasal spray aerosol (Nasacort) 2 spray intranasalBID 05/21/23 [History Last Taken Unknown] infliximab 100 mg intravenous solution (Remicade) 100 mg IV .Q7W crohns 05/24/23[History Last Taken Unknown] hydralazine 100 mg tablet 100 mg PO TID BLOOD PRESSURE #270 tabs 06/14/23 [Rx Last Taken Unknown] isosorbide mononitrate 60 mg tablet,extended release 24 hr 60 mg PO BID BLOOD PRESSURE #90 tabs 07/25/23 [Rx Last Taken 08/07/23] montelukast 10 mg tablet 10 mg PO QPM #30 tabs 07/25/23 [Rx Last Taken Unknown] amiodarone 200 mg tablet See Rx Instructions .Route .COMPLEX #45 TABLETS 08/28/23 [Rx Last Taken Unknown] potassium chloride 10 mEq tablet,extended release(part/cryst) 10 meq PO DAILY supplement 09/04/23 [History Last Taken Unknown] Allergy/AdvReac Type Severity Reaction Status Date / Time aspirin Allergy Severe Mouth Verified 09/03/23 23:35 swelling donepezil [From Aricept] AdvReac Severe Swelling Verified 09/03/23 23:35 minoxidil AdvReac Severe swelling Verified 09/03/23 23:35 morphine AdvReac Severe UNABLE TO Verified 09/03/23 23:35 URINATE Family History Mother Heart disease Diabetes Father Heart disease Lung disease Brother Heart disease Lung disease Cancer prostate, pancreatic Sister Diabetes Cancer uterine Surgical History Cervical vertebral fusion History of back surgery History of bilateral knee replacement History of cardiac catheterization History of left heart catheterization (LHC) (~12/22/21) History of prostate biopsy History of removal of cyst Hx of colectomy Hx of cystoscopy Hx of surgical procedure Social History Smoking Status: Former smoker how long ago did patient quit smokin, 2ppd second hand exposure: Yes alcohol intake: never substance use type: does not use caffeine: Yes Type: coffee Number of servings: 2 ROS ROS ED Constitutional Constitutional ED: Denies chills or fever(s) ENT ENT ED: Reports rhinorrhea; Denies sore throat Cardiovascular Cardiovascular: Denies chest pain Respiratory/Chest Respiratory/Chest: Reports cough, dyspnea and dyspnea on exertion Gastrointestinal Gastrointestinal: Denies abdominal pain, diarrhea, nausea or vomiting Genitourinary Genitourinary ED: Denies dysuria Musculoskeletal Musculoskeletal: Reports myalgias Integumentary Denies rash Neurologic Neurologic: Reports weakness; Denies headache(s) Hematologic/Lymphatic Hematologic/Lymphatic: Reports easy bleeding and easy bruising EXAM Physical Exam Const Vital Signs: 09/03/23 23:18 09/03/23 23:36 09/04/23 00:25 Temperature 97.8 F Temperature Source Oral Pulse Rate 68 65 Respiratory Rate 20 H 23 H Respiratory Effort Short of Breath Respiratory Depth Normal Respiratory Pattern Tachypnea Blood Pressure 179/95 H 195/98 H Blood Pressure Mean 123 130 Pulse Ox 93 92 Oxygen Delivery Method Room Air Room Air Room Air 09/04/23 01:25 09/04/23 02:00 Temperature 98.9 F Temperature Source Pulse Rate 71 70 Respiratory Rate 21 H 20 H Respiratory Effort Respiratory Depth Respiratory Pattern Blood Pressure 159/90 H 183/97 H Blood Pressure Mean 113 125 Pulse Ox 91 95 Oxygen Delivery Method Room Air Positive well nourished, well developed and obese General Appearance ED: well developed and pallor Nutritional Appearance: obese HEENT HEENT Narrative: No tongue or lip swelling noted. No airway edema or compromise Cobblestoning noted in the posterior pharynx consistent with sinus drainage Eyes PERRL and EOMs intact bilaterally General Eye ED: Negative for scleral icterus Neck supple and no JVD Chest Wall palpation of chest normal Resp Resp Narrative: Patient is tachypneic with mild accessory muscle use Breath sounds are diminished throughout with crackles and rhonchi in the bilateral bases. Cardio regular rate and regular rhythm Rate: other Other Details: Radial and carotid pulses are equal and symmetric GI normal to inspection, nondistended, normoactive bowel sounds, non-tender, non-distended and no masses GI Narrative: No voluntary guarding or rigidity No pulsatile mass or fluid wave Auscultation: normoactive bowel sounds Palpation: soft Extremity Extremity Narrative: +3 pitting edema to the bilateral lower extremities that is equal and symmetric. Neuro oriented x3 and CN's II-XII intact bilaterally Sensorium / Orientation: alert Psych Psych Narrative: Patient has a depressed and tearful affect Skin no rashes or lesions noted General Skin Exam: pallor MDM MDM MDM Narrative Medical decision making narrative: Patient presented to the ER afebrile and mildly hypertensive. He had a pulse oxof 91 to 92% on room air but but had increased work of breathing. Differential diagnosis is for COVID versus influenza versus pneumonia versus congestive heartfailure exacerbation versus anemia versus electrolyte derangement. Secondary tothis a basic workup was obtained. Workup was positive for COVID-19 but otherwise there is no clinically significant findings. X-ray did not reveal anytype of pneumothorax pneumonia or pleural effusion. The patient was resting comfortably at rest with a pulse ox of 92 to 94% but with ambulation his pulse ox dropped to 86/87%. Secondary to the hypoxia with exertion and his COVID-19 diagnosis I do not feel that he is safe for discharge home. I contacted the hospitalist secondary to this who agrees with admission secondary to his hypoxiawith ambulation/exertion and generalized weakness. Patient will be started on Decadron secondary to the COVID-19 and will be admitted to the medical floor forcontinued care History & Record Review Discussion w/independent historian: Patient Lab Data Attestation: I reviewed the patient's lab results. Labs: Laboratory Results - last 24 hr 09/03/23 23:35 WBC 5.3 RBC 4.25 L Hgb 12.9 L Hct 39.1 L MCV 92.0 MCH 30.4 MCHC 33.0 RDW Std Deviation 50.4 H RDW Coeff of Azeem 14.8 H Plt Count 191 MPV 11.1 Immature Gran % (Auto) 1.700 H Neut % (Auto) 60.4 Lymph % (Auto) 25.6 [place] % (Auto) 11.9 H Eos % (Auto) 0.0 Baso % (Auto) 0.4 Absolute Neuts (auto) 3.2 Absolute Lymphs (auto) 1.35 Nucleated RBC % 0 Sodium 138 Potassium 3.7 Chloride 105 Carbon Dioxide 26.0 Anion Gap 7 BUN 24 H Creatinine 1.53 H Estim Creat Clear Calc 35.33 Est GFR (MDRD) Af Amer 57 L Est GFR (MDRD) Non-Af 47 L BUN/Creatinine Ratio 15.7 Glucose 184 H Calcium 8.8 Magnesium 2.2 B-Natriuretic Peptide 65.2 Radiography Diagnostic Testing: Clinical Impression(s) from Imaging Studies Chest X-Ray 09/03/23 23:50 IMPRESSION: No evidence of acute cardiopulmonary disease. Electronically Signed: Tejas Selby DO at 0:12 EST , Chest x-ray as interpreted by the emergency medicine physician reveals no acute infiltrate pneumothorax pleural effusion or widening of the mediastinum Management Discussion w/another healthcare provider: Hospitalist Discharge Plan Dx/Rx/DC Orders Clinical Impression: COVID-19, Dyspnea on exertion, Prostate cancer Disposition Disposition: Acute Care Hospital [facility] What to do if you have Problems For any increased pain, shortness of breath, bleeding, nausea or vomiting, chestpain, or any unexpected problems, contact your Primary Care Provider. Call [facility] ([phone]) or report to the closest Emergency Room. Call 911 if necessary. 09/04/23 0209 <Electronically signed by Mauricio Soto DO> Cosigner Signature (if applicable): CC: Dr. Jayme Yang MD ~ Signed [facility] Work Phone: 1(229) 951-700511-08-2023 Discharge summary Author Surinder Larson [facility] August 07, 2023 10:19am Note Date/Time August 07, 2023 1 0:19am [facility] Medical Records Department [address] [place] [address] Instructions for Home/Discharge Instructions 08/07/23 1019 MR#: [id number] Acct: [id number] Name: MEGAN GIMENEZ Rep #:[id number] : 1945 78 From: Surinder Larson MD PCP: Dr. Jayme Yang MD Status:REG S DC Discharge Instructions Diet Discharge Diet: No restrictions Activity Discharge Activity: Return to Normal Activity and May Not Drive (while taking narcotic pain medications.) Dressing / Incision Call your doctor if you observe: Fever of 101 or Higher Follow Up Care Please Follow Up With: Surinder Larson MD When: Call [phone] for an appointment Test Results: Test results from this visit will be discussed in further detail at your follow- up appointment, if applicable. Discharge Plan Admission Attending Provider: Surinder Larson Primary Care Provider: Jayme Yang Discharge Orders/Prescriptions Prescriptions: No Action duloxetine [Cymbalta] 60 mg capsule,delayed release(DR/EC) 60 mg PO DAILY gabapentin 600 mg tablet 300 mg PO BID fluticasone furoate-vilanterol [Breo Ellipta] 200-25 mcg/dose blister with device 1 inh inhalation QDAY Qty: 60 6RF Rx Instructions: after inhalation, rinse mouth with water and spit out; do not swallow triamcinolone acetonide [Nasacort] 55 mcg aerosol,spray 2 spray intranasal BID Rx Instructions: administer into each nostril ipratropium bromide 21 mcg (0.03 %) spray,non-aerosol 2 spray intranasal BID Rx Instructions: administer into each nostril glimepiride 2 MG tablet 2 mg PO QHS Patient Comments: Centrum Silver Men 1 EACH tablet 1 ea PO DAILY buspirone 7.5 mg tablet 7.5 mg PO BID calcium carbonate-vitamin D3 600 mg-5 mcg (200 unit) Tablet 1 tab PO DAILY latanoprost 0.005 % Drops 1 drp LEFT EYE QPM carvedilol 25 mg tablet 25 mg PO BID losartan 100 mg tablet 100 mg PO DAILY loratadine 10 mg Tablet 10 mg PO DAILY esomeprazole magnesium [Nexium] 20 mg Capsule,Delayed Release(Dr/Ec) 20 mg PO DAILY cholecalciferol (vitamin D3) 25 mcg (1,000 unit) Capsule 25 mcg PO DAILY amiodarone 200 mg tablet 100 mg PO DAILY doxazosin 4 mg tablet 4 mg PO BID oxybutynin chloride 10 mg tablet extended release 24hr 10 mg PO QODAY timolol maleate 0.5 % drops 1 drp LEFT EYE DAILY tramadol 50 mg tablet 50 mg PO TID PRN PRN (Reason: Pain) Patient Comments: TAKE 1 TABLET BY MOUTH THREE TIMES DAILY NEEDED FOR 30 DAYS rosuvastatin 20 mg tablet 20 mg PO DAILY omega-3 fatty acids-vitamin E 1,000 mg Capsule 1 cap PO BID infliximab [Remicade] 100 mg recon soln 100 mg IV .Q7W Patient Comments: INFUSE 10MG/KG IV EVERY 7 WEEKS potassium chloride 10 mEq tablet,ER particles/crystals 10 meq PO DAILY PRN (Reason: supplement) Qty: 90 3RF apixaban 5 mg tablet 5 mg PO BID Qty: 180 3RF Patient Comments: 11/4 PM DOSE WILL BE LAST DOSE amlodipine 10 mg tablet 5 mg PO DAILY Qty: 90 3RF hydralazine 100 mg tablet 100 mg PO TID Qty: 270 3RF montelukast 10 mg tablet 10 mg PO QPM Qty: 30 3RF isosorbide mononitrate 60 mg tablet extended release 24 hr 60 mg PO BID Qty: 90 3RF Referrals / Follow Up: Jayme Yang MD [Primary Care Provider] - Disposition Disposition (needs filled in before D/C Order can be placed): Home, Self Care 08/07/23 1019<Electronically signed by Surinder Larson MD>Surinder Larson MD CC: Dr. Jayme Yang MD ~ Signed [facility] Work Phone: [phone]) 530-850511-08-2023 History and physical note Author Surinder Marsha [facility] August 07, 2023 10:19am Note Date/Time August 07, 2023 1 0:19am [facility] Medical Records Department [address] [place] [address] History & Physical Exam 08/07/23 1018 MR#: [id number] Acct: [id number] Name: MEGAN GIMENEZ Rep #:[id number] : 1945 78 From: Surinder Larson MD PCP: Dr. Jayme Yang MD Status:REG S DC Location: [place] [address] HPI - General General Date of Service: 08/07/23 Chief Complaint: Prostate cancer HPI Narrative MEGAN GIMENEZ, is a 78 M who presents for placement of gold markers and spacer gel [facility] Medical History (Updated 07/30/23 @ 08:49 by Bailey Choi) Abnormal stress test Acute bronchitis with bronchospasm Acute respiratory insufficiency Ambulates with cane Anxiety Aortic stenosis Arthritis Asthma Asymptomatic hypertensive urgency Atherosclerotic heart disease of [place] coronary artery without angina pectoris Atrial fibrillation with RVR Back pain Bronchitis CAD in [place] artery Cancer Cardiology follow-up encounter Chronic anticoagulation Closed head injury Colitis Concussion Covid-19 COVID-19 virus infection CPAP (continuous positive airway pressure) dependence Dementia Depression Diabetes Diabetes Diverticula of colon DM2 (diabetes mellitus, type 2) Essential hypertension Excessive bleeding Former smoker Gastric reflux Heart failure High cholesterol History of atrial fibrillation History of echocardiogram History of edema History of renal disease History of steroid therapy History of stress test HTN (hypertension) Hyperlipidemia Hypertensive urgency Inflammatory bowel disease Injury of head and neck Intractable pain Kidney stones Loss of consciousness Nonrheumatic aortic (valve) stenosis NSVT (nonsustained ventricular tachycardia) SUPA (obstructive sleep apnea) Paroxysmal atrial fibrillation Prostate cancer Prostate disease Pulmonary hypertension Renal colic on left side Rheumatoid aortitis Rheumatoid arthritis Rhinovirus Sepsis Severe acute respiratory syndrome coronavirus 2 (SARS-CoV-2) infection ruled out Severe sepsis Sleep apnea SOB (shortness of breath) Ureterolithiasis Wears dentures Wears glasses Wears hearing aid Home Medications glimepiride 2 mg tablet 2 mg PO QHS diabetes 01/22/18 [History Last Taken 03/21/23] wmegnfop-on-svwlk 300 mcg-K 60 mcg-lycop 600 mcg-lutein 300 mcg tablet (Centrum Silver Men) 1 ea PO DAILY supplement 09/17/18 [History Last Taken 03/21/23] duloxetine 60 mg capsule,delayed release (Cymbalta) 60 mg PO DAILY depression 06/02/19 [History Last Taken 03/21/23] buspirone 7.5 mg tablet 7.5 mg PO BID depression/anxiety 04/12/21 [History Last Taken 03/21/23] calcium carbonate 600 mg-vitamin D3 5 mcg (200 unit) tablet 1 tab PO DAILY supplement 12/21/21 [History Last Taken 03/21/23] latanoprost 0.005 % eye drops 1 drp LEFT EYE QPM eye health 12/22/21 [History Last Taken 03/20/23] gabapentin 600 mg tablet 300 mg PO BID neuropathy 01/26/22 [History Last Taken 03/21/23] amiodarone 200 mg tablet 100 mg PO DAILY AFIB 10/02/22 [History Last Taken 08/07/23] carvedilol 25 mg tablet 25 mg PO BID HEART 10/02/22 [History Last Taken 08/07/23] cholecalciferol (vitamin D3) 25 mcg (1,000 unit) capsule 25 mcg PO DAILY SUPPLEMENT 10/02/22 [History Last Taken 10/04/22] doxazosin 4 mg tablet 4 mg PO BID BLOOD PRESSURE 10/02/22 [History Last Taken 03/21/23] esomeprazole magnesium 20 mg capsule,delayed release (Nexium) 20 mg PO DAILY GERD 10/02/22 [History Last Taken 08/07/23] loratadine 10 mg tablet 10 mg PO DAILY ALLERGIES 10/02/22 [History Last Taken 03/21/23] losartan 100 mg tablet 100 mg PO DAILY BLOOD PRESSURE 10/02/22 [History Last Taken 08/07/23] oxybutynin chloride 10 mg tablet,extended release 24 hr 10 mg PO QODAY bladder 10/04/22 [History Last Taken 03/21/23] timolol maleate 0.5 % eye drops 1 drp LEFT EYE DAILY EYE HEALTH 10/04/22 [History Last Taken 03/20/23] potassium chloride 10 mEq tablet,extended release(part/cryst) 10 meq PO DAILY PRN supplement #90 tabs 11/26/22 [Rx Last Taken 03/21/23] apixaban 5 mg tablet 5 mg PO BID afib #180 tabs 12/03/22 [Rx Last Taken 03/21/23] rosuvastatin 20 mg tablet 20 mg PO DAILY cholesterol 03/21/23 [History Last Taken 03/21/23] tramadol 50 mg tablet 50 mg PO TID PRN PRN Pain 03/21/23 [History Last Taken Unknown] omega-3 fatty acids-vitamin E 1,000 mg capsule 1 cap PO BID Check with primary doctor 03/22/23 [History Last Taken 03/21/23] fluticasone furoate 200 mcg-vilanterol 25 mcg/dose inhalation powder (Breo Ellipta) 1 inh inhalation QDAY #60 ea 04/04/23 [Rx Last Taken Unknown] amlodipine 10 mg tablet 5 mg (1/2 x 10 mg) PO DAILY #90 tabs 05/08/23 [Rx Last Taken 08/07/23] ipratropium bromide 21 mcg (0.03 %) nasal spray 2 spray intranasal BID 05/21/23 [History Last Taken Unknown] triamcinolone acetonide 55 mcg nasal spray aerosol (Nasacort) 2 spray intranasalBID 05/21/23 [History Last Taken Unknown] infliximab 100 mg intravenous solution (Remicade) 100 mg IV .Q7W crohns 05/24/23[History Last Taken Unknown] hydralazine 100 mg tablet 100 mg PO TID BLOOD PRESSURE #270 tabs 06/14/23 [Rx Last Taken Unknown] isosorbide mononitrate 60 mg tablet,extended release 24 hr 60 mg PO BID BLOOD PRESSURE #90 tabs 07/25/23 [Rx Last Taken 08/07/23] montelukast 10 mg tablet 10 mg PO QPM #30 tabs 07/25/23 [Rx Last Taken Unknown] Allergy/AdvReac Type Severity Reaction Status Date / Time aspirin Allergy Severe Mouth Verified 08/07/23 08:54 swelling donepezil [From Aricept] AdvReac Severe Swelling Verified 08/07/23 08:54 minoxidil AdvReac Severe swelling Verified 08/07/23 08:54 morphine AdvReac Severe UNABLE TO Verified 08/07/23 08:54 URINATE Family History Mother Heart disease Diabetes Father Heart disease Lung disease Brother Heart disease Lung disease Cancer prostate, pancreatic Sister Diabetes Cancer uterine Surgical History (Updated 07/30/23 @ 08:37 by Bailey Choi) Cervical vertebral fusion History of back surgery History of bilateral knee replacement History of cardiac catheterization History of left heart catheterization (LHC) (~12/22/21) History of prostate biopsy History of removal of cyst Hx of colectomy Hx of cystoscopy Hx of surgical procedure Social History Smoking Status: Former smoker how long ago did patient quit smokin, 2ppd second hand exposure: Yes alcohol intake: never substance use type: does not use caffeine: Yes Type: coffee Number of servings: 2 Vital Signs Vital Signs Vital Signs: 08/07/23 08:56 08/07/23 08:56 Temperature 97.9 F Temperature Source Temporal Pulse Rate 70 Respiratory Rate 16 Respiratory Pattern Normal Blood Pressure 167/87 H Blood Pressure Mean 113 Blood Pressure Source Monitor Blood Pressure Position Semi-Fowlers Blood Pressure Location Left Arm Pulse Ox 93 Oxygen Delivery Method Room Air Weight Weight: 99 kg Body Mass Index (BMI) 35.2 Results Lab / Micro Data Labs: Laboratory Results - last 24 hr 08/07/23 08:52: POC Glucose 115 H 08/07/23 1019 <Electronically signed by uSrinder Larson MD> Cosigner Signature (if applicable): CC: Dr. Surinder Larson MD; Dr. Jayme Yang MD~ Signed [facility] Work Phone: 1(321) 290-642511-08-2023 Procedure [facility] 03-26-[address] Bojorquez [facility] March 26, 2023 12:00pm Note Date/Time March 26, 2023 11:4 8am [facility] Medical Records Department [address] [place] [address] Discharge Summary 03/26/23 1145 MR#: [id number] Acct: [id number] Name: MEGAN GIMENEZ Rep #:[id number] : 1945 77 From: Boris matos MD PCP: Dr. Jayme Yang MD Status:ADM I N [id number] Prov[facility] Date of Admission: 03/21/23 Primary Care Physician: Dr. Jayme Yang MD Reason For Visit: PNEUMONIA Diagnosis Discharge Diagnosis (1) Pneumonia: Status: Acute Code(s): J18.9 - Pneumonia, unspecified organism (2) HTN (hypertension): Status: Chronic Code(s): I10 - Essential (primary) hypertension Medications at Discharge Home Medications glimepiride 2 mg tablet 2 mg PO QHS diabetes 01/22/18 otdxhydq-bq-azens 300 mcg-K 60 mcg-lycop 600 mcg-lutein 300 mcg tablet (Centrum Silver Men) 1 ea PO DAILY supplement 09/17/18 duloxetine 60 mg capsule,delayed release (Cymbalta) 60 mg PO DAILY depression 06/02/19 buspirone 7.5 mg tablet 7.5 mg PO BID depression/anxiety 04/12/21 calcium carbonate 600 mg-vitamin D3 5 mcg (200 unit) tablet 1 tab PO DAILY supplement 12/21/21 latanoprost 0.005 % eye drops 1 drp LEFT EYE QPM eye health 12/22/21 gabapentin 600 mg tablet 300 mg PO BID neuropathy 01/26/22 isosorbide mononitrate 60 mg tablet,extended release 24 hr 60 mg PO BID BLOOD PRESSURE 09/06/22 amiodarone 200 mg tablet 100 mg PO DAILY AFIB 10/02/22 carvedilol 25 mg tablet 25 mg PO BID HEART 10/02/22 cholecalciferol (vitamin D3) 25 mcg (1,000 unit) capsule 25 mcg PO DAILY SUPPLEMENT 10/02/22 doxazosin 4 mg tablet 4 mg PO BID BLOOD PRESSURE 10/02/22 esomeprazole magnesium 20 mg capsule,delayed release (Nexium) 20 mg PO DAILY GERD 10/02/22 loratadine 10 mg tablet 10 mg PO DAILY ALLERGIES 10/02/22 losartan 100 mg tablet 100 mg PO DAILY BLOOD PRESSURE 10/02/22 hydralazine 100 mg tablet 100 mg PO TID BLOOD PRESSURE 10/04/22 omega-3 fatty acids 1,000 mg capsule 1,000 mg PO BID supplement 10/04/22 oxybutynin chloride 10 mg tablet,extended release 24 hr 10 mg PO QODAY bladder 10/04/22 timolol maleate 0.5 % eye drops 1 drp LEFT EYE DAILY EYE HEALTH 10/04/22 furosemide 20 mg tablet 20 mg PO DAILY PRN fluid 10/22/22 potassium chloride 10 mEq tablet,extended release(part/cryst) 10 meq PO DAILY PRN supplement #90 tabs 11/26/22 apixaban 5 mg tablet 5 mg PO BID afib #180 tabs 12/03/22 infliximab 100 mg intravenous solution (Remicade) 100 mg IV Q7D crohns 03/21/23 rosuvastatin 20 mg tablet 20 mg PO DAILY cholesterol 03/21/23 tramadol 50 mg tablet 50 mg PO TID PRN PRN Pain 03/21/23 omega-3 fatty acids-vitamin E 1,000 mg capsule cap PO Check with primary doctor 03/22/23 amlodipine 10 mg tablet 10 mg PO DAILY 30 days #30 tabs 03/26/23 ciprofloxacin HCl 500 mg tablet (Cipro) 500 mg PO BID #10 tabs 03/26/23 Hospital Course Operations None Procedures None Summary of Care Provided Minutes Spent on Discharge: 37 Hospital Course: Per HPI: MEGAN GIMENEZ, is a 77 M with a significant history of diabetes mellitus; hypertension; atrial fibrillation who presents to the emergency department with 1 month history of persistent shortness of breath. Associated with his symptoms is a productive cough of yellow sputum.? The patient's is unable to sleep because of coughing.? Also, he has paroxysmal nocturnal dyspnea.? Patient denies any real orthopnea.? He denies any weight gain.? He denies any swelling in extremities for the past 1 month.? Patient was put on a course of Z-Adore that he completed therapy.? Three-day before presentation he wasstarted on a 10 days of Levaquin and a 15 days of steroids.? Because he continues to have his symptoms he came to the emergency department.? Reported atthe emergency department patient was ambulated.? His oxygen saturation was 90% on room air so a decision was made for patient to stay at the hospital. Hospital Course: 1. Community-acquired pneumonia secondary to Pseudomonas?77-year-old male presents from home with shortness of breath and needing oxygen periodically. Hewas started initially on broad-spectrum antibiotics including vancomycin and Zosyn secondary to failure of outpatient therapy. He started Levaquin about 2 days prior to admission as well as a steroid course. Sputum culture did come back ultimately has a Pseudomonas aeruginosa unfortunately sensitivities could not be done so this had to be sent to an outside lab. He has significantly improved over the last several days to not needing oxygen with ambulation today. He was given 2 doses of IV Lasix which I think has helped him significantly so I do recommend that he take the p.o. Lasix that he takes as needed at home for the next several days. I do recommend that he follow-up with his PCP in 3 to 5 days so they can follow-up with the sensitivities of the Pseudomonas as well as monitor his renal function, [facility] and will plan on 5 more days of p.o. Cipro on discharge. I discussed with him the plan for discharge today and he expressed understanding of the riskand benefits of going home and he would like to go home today. 2. Coronary artery disease, hypertension, hyperlipidemia, paroxysmal A-fib, type 2 diabetes, CKD 3B, glaucoma, SUPA, GERD are all chronic medical conditions which complicate his care. His home medications were continued where appropriate. Physical Exam Narrative General: Alert, Oriented x3, Cooperative, No apparent distress HEENT: Atraumatic, PERRLA, EOMI, Normocephalic Oral: Moist Mucosa Neck: Supple, No JVD Lungs: Diminished, Normal air movement, rhonchi?improved, No wheeze, No rales Cardiovascular: Regular rate, Regular Rhythm, Normal S1, Normal S2, No murmurs Abdomen: Soft, Non Tender, Non-Distended, No Hepato-splenomegaly Extremities: No edema, Capillary Refill Less than 3 Seconds Skin: No rashes, No breakdown Musculoskeletal: No Tenderness to Palpation of Joints or Extremities Neurological: Cranial nerves II-XII grossly intact, Motor Exam 5/5 strength throughout, Sensory exam intact to light touch and pain Psych/Mental Status: Normal Affect, Appropriate Weight / BMI Weight Weight: 214 lb 1.102 oz Body Mass Index (BMI) 33.5 ABG / Lab / Microbiology Data Result Diagrams: 03/26/23 05:56 03/26/23 05:56 Laboratory: Laboratory Results - last 24 hr 03/25/23 11:46: POC Glucose 234 H 03/25/23 16:41: POC Glucose 251 H 03/25/23 21:01: POC Glucose 221 H 03/26/23 05:56: WBC 10.7, RBC 4.15 L, Hgb 12.8 L, Hct 38.0 L, MCV 91.6, MCH 30.8, MCHC 33.7, RDW Std Deviation 50.9 H, RDW Coeff of Azeem 15.3 H, Plt Count 182, MPV 10.0, Immature Gran % (Auto) 0.400, Neut % (Auto) 76.0 H, Lymph % (Auto) 16.7 L, [place] % (Auto) 6.8, Eos % (Auto) 0.0, Baso % (Auto) 0.1, Absolute Neuts (auto) 8.2 H, Absolute Lymphs (auto) 1.79, Nucleated RBC % 0 03/26/23 05:56: Sodium 141, Potassium 3.3 L, Chloride 109 H, Carbon Dioxide 26.0, Anion Gap 6, BUN 42 H, Creatinine 1.55 H, Estim Creat Clear Calc 36.72, Est GFR (MDRD) Af Amer 56 L, Est GFR (MDRD) Non-Af 46 L, BUN/Creatinine Ratio 27.1 H, Glucose 151 H, Calcium 8.5 03/26/23 06:31: POC Glucose 159 H Microbiology: Microbiology 03/21/23 21:48 Sputum, Expectorated/Coughed Gram Stain - Final 03/21/23 21:48 Sputum, Expectorated/Coughed Respiratory Culture - Preliminary Pseudomonas aeruginosa 03/21/23 22:45 Mucosa - Nasopharyngeal Respiratory Panel (PCR) - Final 03/21/23 22:35 Urine, Clean Catch Streptococcus pneumoniae Antigen (M - Final 03/21/23 22:35 Urine, Clean Catch Legionella Antigen - Final 03/21/23 17:25 Nasal Secretion SARS-CoV-2 Antigen (Rapid) - Final D/C Instructions Discharge Diet: Low fat / Low cholesterol Call your doctor if you observe: Fever of 101 or Higher, Shortness of breath, Dizziness, Fainting spells, Swelling in the ankles, Chest pain and Increased palpitations (irregular heartbeat) Meaningful Use Info Meaningful Use Diagnoses (Choose all that apply): None applicable Discharge Plan Admission Admit Date/Time: 03/21/23 20:32 Attending Provider: Boris Bojorquez Primary Care Provider: Jayme Yang Consulting Providers: Pedro Ferreira Discharge Orders/Prescriptions Prescriptions: New amlodipine 10 mg Tablet 10 mg PO DAILY 30 Days Qty: 30 0RF ciprofloxacin HCl [Cipro] 500 mg tablet 500 mg PO BID Qty: 10 0RF Continued duloxetine [Cymbalta] 60 mg capsule,delayed release(DR/EC) 60 mg PO DAILY gabapentin 600 mg tablet 300 mg PO BID isosorbide mononitrate 60 mg tablet extended release 24 hr 60 mg PO BID furosemide 20 mg tablet 20 mg PO DAILY PRN (Reason: fluid) glimepiride 2 MG tablet 2 mg PO QHS Label Comments: Centrum Silver Men 1 EACH tablet 1 ea PO DAILY buspirone 7.5 mg tablet 7.5 mg PO BID calcium carbonate-vitamin D3 600 mg-5 mcg (200 unit) Tablet 1 tab PO DAILY latanoprost 0.005 % Drops 1 drp LEFT EYE QPM carvedilol 25 mg tablet 25 mg PO BID losartan 100 mg tablet 100 mg PO DAILY loratadine 10 mg Tablet 10 mg PO DAILY esomeprazole magnesium [Nexium] 20 mg Capsule,Delayed Release(Dr/Ec) 20 mg PO DAILY cholecalciferol (vitamin D3) 25 mcg (1,000 unit) Capsule 25 mcg PO DAILY amiodarone 200 mg tablet 100 mg PO DAILY doxazosin 4 mg tablet 4 mg PO BID omega-3 fatty acids 1,000 mg Capsule 1,000 mg PO BID oxybutynin chloride 10 mg tablet extended release 24hr 10 mg PO QODAY timolol maleate 0.5 % drops 1 drp LEFT EYE DAILY hydralazine 100 mg tablet 100 mg PO TID tramadol 50 mg tablet 50 mg PO TID PRN PRN (Reason: Pain) Label Comments: TAKE 1 TABLET BY MOUTH THREE TIMES DAILY NEEDED FOR 30 DAYS infliximab [Remicade] 100 mg recon soln 100 mg IV Q7D Label Comments: INFUSE 10MG/KG IV EVERY 7 WEEKS rosuvastatin 20 mg tablet 20 mg PO DAILY omega-3 fatty acids-vitamin E 1,000 mg Capsule PO potassium chloride 10 mEq tablet,ER particles/crystals 10 meq PO DAILY PRN (Reason: supplement) Qty: 90 3RF apixaban 5 mg tablet 5 mg PO BID Qty: 180 3RF Discontinued prednisone 20 mg tablet 40 mg PO BREAKFAST amlodipine 2.5 mg tablet 2.5 mg PO DAILY Qty: 90 3RF Referrals / Follow Up: Jayme Yang MD [Primary Care Provider] - 04/03/23 8:50 am Disposition Disposition (needs filled in before D/C Order can be placed): Home, Self Care Charges/Coding Visit Charges Inpatient E&M: 57974 Disch Hosp >30min 03/26/23 1200 <Electronically signed by Boris Bojorquez MD> Cosigner Signature (if applicable): CC: Dr. Boris Bojorquez MD; Dr. Jayme Yang MD~ Signed [facility] Work Phone: 1(183) 103-306806-27-[address] Bojorquez [facility] March 26, 2023 9:31am Note Date/Time March 26, 2023 9:27 am [facility] Medical Records Department [address] [place] [address] Instructions for Home/Discharge Instructions 03/26/2318 MR#: [id number] Acct: [id number] Name: MEGAN GIMENEZ Rep #:[id number] : 1945 77 From: Boris matos MD PCP: Dr. Jayme Yang MD Status:ADM I N Discharge Instructions Diet Discharge Diet: Low fat / Low cholesterol Activity Discharge Activity: Return to Normal Activity Dressing / Incision Call your doctor if you observe: Fever of 101 or Higher, Shortness of breath, Dizziness, Fainting spells, Swelling in the ankles, Chest pain and Increased palpitations (irregular heartbeat) Follow Up Care Test Results: Test results from this visit will be discussed in further detail at your follow- up appointment, if applicable. Discharge Plan Admission Admit Date/Time: 03/21/23 20:32 Attending Provider: Boris Bojorquez Primary Care Provider: Jayme Yang Consulting Providers: Pedro Ferreira Discharge Orders/Prescriptions Prescriptions: New amlodipine 10 mg Tablet 10 mg PO DAILY 30 Days Qty: 30 0RF ciprofloxacin HCl [Cipro] 500 mg tablet 500 mg PO BID Qty: 10 0RF Continued duloxetine [Cymbalta] 60 mg capsule,delayed release(DR/EC) 60 mg PO DAILY gabapentin 600 mg tablet 300 mg PO BID isosorbide mononitrate 60 mg tablet extended release 24 hr 60 mg PO BID furosemide 20 mg tablet 20 mg PO DAILY PRN (Reason: fluid) glimepiride 2 MG tablet 2 mg PO QHS Label Comments: Centrum Silver Men 1 EACH tablet 1 ea PO DAILY buspirone 7.5 mg tablet 7.5 mg PO BID calcium carbonate-vitamin D3 600 mg-5 mcg (200 unit) Tablet 1 tab PO DAILY latanoprost 0.005 % Drops 1 drp LEFT EYE QPM carvedilol 25 mg tablet 25 mg PO BID losartan 100 mg tablet 100 mg PO DAILY loratadine 10 mg Tablet 10 mg PO DAILY esomeprazole magnesium [Nexium] 20 mg Capsule,Delayed Release(Dr/Ec) 20 mg PO DAILY cholecalciferol (vitamin D3) 25 mcg (1,000 unit) Capsule 25 mcg PO DAILY amiodarone 200 mg tablet 100 mg PO DAILY doxazosin 4 mg tablet 4 mg PO BID omega-3 fatty acids 1,000 mg Capsule 1,000 mg PO BID oxybutynin chloride 10 mg tablet extended release 24hr 10 mg PO QODAY timolol maleate 0.5 % drops 1 drp LEFT EYE DAILY hydralazine 100 mg tablet 100 mg PO TID tramadol 50 mg tablet 50 mg PO TID PRN PRN (Reason: Pain) Label Comments: TAKE 1 TABLET BY MOUTH THREE TIMES DAILY NEEDED FOR 30 DAYS infliximab [Remicade] 100 mg recon soln 100 mg IV Q7D Label Comments: INFUSE 10MG/KG IV EVERY 7 WEEKS rosuvastatin 20 mg tablet 20 mg PO DAILY omega-3 fatty acids-vitamin E 1,000 mg Capsule PO potassium chloride 10 mEq tablet,ER particles/crystals 10 meq PO DAILY PRN (Reason: supplement) Qty: 90 3RF apixaban 5 mg tablet 5 mg PO BID Qty: 180 3RF Discontinued prednisone 20 mg tablet 40 mg PO BREAKFAST amlodipine 2.5 mg tablet 2.5 mg PO DAILY Qty: 90 3RF Referrals / Follow Up: Jayme Yang MD [Primary Care Provider] - Within 1 Week Disposition Disposition (needs filled in before D/C Order can be placed): Home, Self Care 03/26/23930<Electronically signed by Boris Bojorquez MD>Boris Bojorquez MD CC: Dr. Pedro Ferreira MD; Dr. Jayme Yang MD ~ Signed [facility] Work Phone: 1(352) 568-773006-26-[address] Bojorquez [facility] March 25, 2023 12:38pm Note Date/Time March 25, 2023 12:3 8pm [facility] Medical Records Department [address] [place] [address] Progress Note - Hospitalist 03/25/23 1229 MR#: [id number] Acct: [id number] Name: MEGAN GIMENEZ Rep #:[id number] : 1945 77 From: Boris matos MD PCP: Dr. Jayme Yang MD Status:ADM I N Location: [place] [address] Subjective Subjective Still with significant productive sputum, sputum cultures with Pseudomonas Objective Data Objective Data Vital Signs: Vital Signs Temp Pulse Resp BP Pulse Ox O2 Del Method O2 Flow Rate 98.0 F 82 20 H 180/106 H 92 Nasal Cannula 4 03/25/23 07:49 03/25/23 11:21 03/25/23 11:21 03/25/23 07:49 03/25/23 07:49 03/25/23 11:21 03/25/23 11:21 Oxygen Flow Rate (L/min) 4 Oxygen Delivery Method Nasal Cannula Weight: 214 lb 1.102 oz Body Mass Index (BMI) 33.5 Intake & Output: Intake and Output for Last 24 Hours 03/24/23 03/25/23 03/26/23 03:59 03:59 03:59 Intake Total 1415 / 1415 650 / 650 50 / 50 Output Total 1600 / 1600 500 / 500 Balance -185 / -185 150 / 150 50 / 50 Lab / Micro Data Result Diagrams: 03/23/23 06:27 03/25/23 05:20 Labs: Laboratory Results - last 24 hr 03/24/23 17:10: POC Glucose 249 H 03/24/23 22:15: POC Glucose 197 H 03/25/23 05:20: Sodium 143, Potassium 3.6, Chloride 110 H, Carbon Dioxide 26.0, Anion Gap 7, BUN 41 H, Creatinine 1.43 H, Estim Creat Clear Calc 39.80, Est GFR (MDRD) Af Amer 61, Est GFR (MDRD) Non-Af 51 L, BUN/Creatinine Ratio 28.7 H, Glucose 134 H, Calcium 8.5 03/25/23 05:57: POC Glucose 151 H 03/25/23 11:46: POC Glucose 234 H Micro: Microbiology 03/21/23 21:48 Sputum, Expectorated/Coughed Gram Stain - Final 03/21/23 21:48 Sputum, Expectorated/Coughed Respiratory Culture - Preliminary Pseudomonas aeruginosa 03/21/23 22:45 Mucosa - Nasopharyngeal Respiratory Panel (PCR) - Final 03/21/23 22:35 Urine, Clean Catch Streptococcus pneumoniae Antigen (M - Final 03/21/23 22:35 Urine, Clean Catch Legionella Antigen - Final 03/21/23 17:25 Nasal Secretion SARS-CoV-2 Antigen (Rapid) - Final Physical Exam Narrative General: Alert, Oriented x3, Cooperative, No apparent distress HEENT: Atraumatic, PERRLA, EOMI, Normocephalic Oral: Moist Mucosa Neck: Supple, No JVD Lungs: Diminished, Normal air movement, rhonchi?improved, No wheeze, No rales Cardiovascular: Regular rate, Regular Rhythm, Normal S1, Normal S2, No murmurs Abdomen: Soft, Non Tender, Non-Distended, No Hepato-splenomegaly Extremities: No edema, Capillary Refill Less than 3 Seconds Skin: No rashes, No breakdown Musculoskeletal: No Tenderness to Palpation of Joints or Extremities Neurological: Cranial nerves II-XII grossly intact, Motor Exam 5/5 strength throughout, Sensory exam intact to light touch and pain Psych/Mental Status: Normal Affect, Appropriate Assessment & Plan Assessment/Plan (1) Pneumonia: (2) HTN (hypertension): PLAN: Plan 1. Community-acquired pneumonia due to Pseudomonas ? Recently started on Levaquin and steroids as an outpatient because of shortness of breath ?He was Zosyn, sputum culture with Pseudomonas sensitivities are pending ? COVID antigen was negative ? Respiratory panel as well as strep and Legionella antigens are negative ? We will obtain an ambulatory pulse ox today 2.? CAD/HTN/HLD/paroxysmal A. fib ? Blood pressures are stable ? Can resume his home blood pressure medications, I increased his Norvasc from 2.5 mg to 10 mg given hypertension ? Continue with his statin ? Continue with Eliquis 3.? DM2/CKD IIIb ? We will hold his home oral medications ? Continue sliding scale insulin ? Accu-Cheks AC at bedtime ? We will make adjustments as necessary ? Renal function is at baseline, will continue to monitor 4.? Glaucoma ? Stable ? Continue his eyedrops 5.? SUPA ? Stable ? Continue with home CPAP 6.? GERD ? Stable ? Continue with PPI DVT: Eliquis Charges/Coding Visit Charges Inpatient E&M: 77557 Subs Hosp L2 03/25/23 1238 <Electronically signed by Boris Bojorquez MD> Cosigner Signature (if applicable): CC: ~ Signed [facility] Work Phone: 1(758) 236-828906-25-[address] Bojorquez [facility] March 24, 2023 9:49am Note Date/Time March 24, 2023 9:49 am [facility] Medical Records Department [address] [place] [address] Progress Note - Hospitalist 03/24/23 0946 MR#: [id number] Acct: [id number] Name: MEGAN GIMENEZ Rep #:[id number] : 1945 77 From: Boris matos MD PCP: Dr. Jayme Yang MD Status:ADM I N Location: MD3 [id number] Subjective Subjective Doing well, had to go up on his oxygen today because of sputum production Objective Data Objective Data Vital Signs: Vital Signs Temp Pulse Resp BP Pulse Ox O2 Del Method O2 Flow Rate 97.3 F L 76 20 H 177/98 H 95 Nasal Cannula 4 03/24/23 08:00 03/24/23 08:00 03/24/23 08:00 03/24/23 08:00 03/24/23 08:00 03/24/23 08:00 03/24/23 08:00 Oxygen Flow Rate (L/min) 4 Oxygen Delivery Method Nasal Cannula Weight: 214 lb 1.102 oz Body Mass Index (BMI) 33.5 Intake & Output: Intake and Output for Last 24 Hours 03/23/23 03/24/23 03/25/23 03:59 03:59 03:59 Intake Total 1330 / 1330 1415 / 1415 50 / 50 Output Total 825 / 825 1600 / 1600 Balance 505 / 505 -185 / -185 50 / 50 Lab / Micro Data Result Diagrams: 03/23/23 06:27 03/23/23 06:27 Labs: Laboratory Results - last 24 hr 03/23/23 10:52: Vancomycin Trough 14.3 03/23/23 11:26: POC Glucose 145 H 03/23/23 16:05: POC Glucose 243 H 03/23/23 22:43: POC Glucose 261 H 03/24/23 05:58: POC Glucose 148 H Micro: Microbiology 03/21/23 21:48 Sputum, Expectorated/Coughed Gram Stain - Final 03/21/23 21:48 Sputum, Expectorated/Coughed Respiratory Culture - Preliminary Gram negative [place] 03/21/23 22:45 Mucosa - Nasopharyngeal Respiratory Panel (PCR) - Final 03/21/23 22:35 Urine, Clean Catch Streptococcus pneumoniae Antigen (M - Final 03/21/23 22:35 Urine, Clean Catch Legionella Antigen - Final 03/21/23 17:25 Nasal Secretion SARS-CoV-2 Antigen (Rapid) - Final Physical Exam Narrative General: Alert, Oriented x3, Cooperative, No apparent distress HEENT: Atraumatic, PERRLA, EOMI, Normocephalic Oral: Moist Mucosa Neck: Supple, No JVD Lungs: Diminished, Normal air movement, rhonchi?improved, No wheeze, No rales Cardiovascular: Regular rate, Regular Rhythm, Normal S1, Normal S2, No murmurs Abdomen: Soft, Non Tender, Non-Distended, No Hepato-splenomegaly Extremities: No edema, Capillary Refill Less than 3 Seconds Skin: No rashes, No breakdown Musculoskeletal: No Tenderness to Palpation of Joints or Extremities Neurological: Cranial nerves II-XII grossly intact, Motor Exam 5/5 strength throughout, Sensory exam intact to light touch and pain Psych/Mental Status: Normal Affect, Appropriate Assessment & Plan Assessment/Plan (1) Pneumonia: (2) HTN (hypertension): PLAN: Plan 1. Community-acquired pneumonia ? Recently started on Levaquin and steroids as an outpatient because of shortness of breath ? Sputum culture with gram-negative rods, continue with just Zosyn at this time ? COVID antigen was negative ? Respiratory panel as well as strep and Legionella antigens are negative ? Sputum cultures pending, gram-negative rods 2.? CAD/HTN/HLD/paroxysmal A. fib ? Blood pressures are stable ? Can resume his home blood pressure medications, I increased his Norvasc from 2.5 mg to 10 mg given hypertension ? Continue with his statin ? Continue with Eliquis 3.? DM2/CKD IIIb ? We will hold his home oral medications ? Continue sliding scale insulin ? Accu-Cheks AC at bedtime ? We will make adjustments as necessary ? Renal function is at baseline, will continue to monitor 4.? Glaucoma ? Stable ? Continue his eyedrops 5.? SUPA ? Stable ? Continue with home CPAP 6.? GERD ? Stable ? Continue with PPI DVT: Eliquis Charges/Coding Visit Charges Inpatient E&M: 66101 Subs Hosp L2 03/24/2349 <Electronically signed by Boris Bojorquez MD> Cosigner Signature (if applicable): CC: ~ Signed [facility] Work Phone: [phone]) 878-635006-24-[address] Bojorquez [facility] March 23, 2023 9:03am Note Date/Time March 23, 2023 9:03 am [facility] Medical Records Department [address] [place] [address] Progress Note - Hospitalist 03/23/23901 MR#: [id number] Acct: [id number] Name: MEGAN GIMENEZ Rep #:[id number] : 1945 77 From: Boris matos MD PCP: Dr. Jayme Yang MD Status:ADM I N Location: [place] [address] Subjective Subjective Doing well, breathing little bit easier. No issues overnight Objective Data Objective Data Vital Signs: Vital Signs Temp Pulse Resp BP Pulse Ox O2 Del Method O2 Flow Rate 98.2 F 85 18 174/94 H 92 Nasal Cannula 2 03/23/23 03:41 03/23/23 07:03 03/23/23 07:03 03/23/23 06:39 03/23/23 07:03 03/23/23 07:03 03/23/23 07:03 Oxygen Flow Rate (L/min) 2 Oxygen Delivery Method Nasal Cannula Weight: 214 lb 1.102 oz Body Mass Index (BMI) 33.5 Intake & Output: Intake and Output for Last 24 Hours 03/22/23 03/23/23 03/24/23 03:59 03:59 03:59 Intake Total 945 / 945 1330 / 1330 Output Total 825 / 825 700 / 700 Balance 945 / 945 505 / 505 -700 / -700 Lab / Micro Data Result Diagrams: 03/23/23 06:27 03/23/23 06:27 Labs: Laboratory Results - last 24 hr 03/22/23 23:18: POC Glucose 235 H 03/23/23 06:27: WBC 9.5, RBC 4.11 L, Hgb 12.3 L, Hct 38.2 L, MCV 92.9, MCH 29.9,MCHC 32.2, RDW Std Deviation 50.8 H, RDW Coeff of Azeem 14.9 H, Plt Count 196, MPV11.4, Immature Gran % (Auto) 0.900, Neut % (Auto) 73.5 H, Lymph % (Auto) 17.5 L,Concho % (Auto) 7.9, Eos % (Auto) 0.1, Baso % (Auto) 0.1, Absolute Neuts (auto) 7.0, Absolute Lymphs (auto) 1.66, Nucleated RBC % 0 03/23/23 06:27: Sodium 140, Potassium 3.7, Chloride 109 H, Carbon Dioxide 27.0, Anion Gap 4 L, BUN 31 H, Creatinine 1.38 H, Estim Creat Clear Calc 41.25, Est GFR (MDRD) Af Amer 64, Est GFR (MDRD) Non-Af 53 L, BUN/Creatinine Ratio 22.5 H, Glucose 145 H, Calcium 8.8 03/23/23 06:36: POC Glucose 148 H Micro: Microbiology 03/21/23 21:48 Sputum, Expectorated/Coughed Gram Stain - Final 03/21/23 22:45 Mucosa - Nasopharyngeal Respiratory Panel (PCR) - Final 03/21/23 22:35 Urine, Clean Catch Streptococcus pneumoniae Antigen (M - Final 03/21/23 22:35 Urine, Clean Catch Legionella Antigen - Final 03/21/23 17:25 Nasal Secretion SARS-CoV-2 Antigen (Rapid) - Final Physical Exam Narrative General: Alert, Oriented x3, Cooperative, No apparent distress HEENT: Atraumatic, PERRLA, EOMI, Normocephalic Oral: Moist Mucosa Neck: Supple, No JVD Lungs: Diminished, Normal air movement, rhonchi, No wheeze, No rales Cardiovascular: Regular rate, Regular Rhythm, Normal S1, Normal S2, No murmurs Abdomen: Soft, Non Tender, Non-Distended, No Hepato-splenomegaly Extremities: No edema, Capillary Refill Less than 3 Seconds Skin: No rashes, No breakdown Musculoskeletal: No Tenderness to Palpation of Joints or Extremities Neurological: Cranial nerves II-XII grossly intact, Motor Exam 5/5 strength throughout, Sensory exam intact to light touch and pain Psych/Mental Status: Normal Affect, Appropriate Assessment & Plan Assessment/Plan (1) Pneumonia: (2) HTN (hypertension): PLAN: Plan 1. Community-acquired pneumonia ? Recently started on Levaquin and steroids as an outpatient because of shortness of breath ? Currently started on vancomycin and Zosyn on admission ? COVID antigen was negative ? Respiratory panel as well as strep and Legionella antigens are negative ? Sputum cultures pending 2.? CAD/HTN/HLD/paroxysmal A. fib ? Blood pressures are stable ? Can resume his home blood pressure medications ? Continue with his statin ? Continue with Eliquis 3.? DM2/CKD IIIb ? We will hold his home oral medications ? Continue sliding scale insulin ? Accu-Cheks AC at bedtime ? We will make adjustments as necessary ? Renal function is at baseline, will continue to monitor 4.? Glaucoma ? Stable ? Continue his eyedrops 5.? SUPA ? Stable ? Continue with home CPAP 6.? GERD ? Stable ? Continue with PPI DVT: Eliquis Charges/Coding Visit Charges Inpatient E&M: 58640 Subs Hosp L2 03/23/23 0903 <Electronically signed by Boris Bojorquez MD> Cosigner Signature (if applicable): CC: ~ Signed [facility] Work Phone: [phone]) [phone] Bojorquez [facility] March 22, 2023 9:20am Note Date/Time March 22, 2023 9:14 am [facility] Medical Records Department [address] [place] [address] Progress Note - Hospitalist 03/22/23909 MR#: [id number] Acct: [id number] Name: MEGAN GIMENEZ Rep #:[id number] : 1945 77 From: Boris matos MD PCP: Dr. Jayme Yang MD Status:ADM I N Location: [place] [address] Subjective Subjective Doing little bit better, normally does not wear oxygen Objective Data Objective Data Vital Signs: Vital Signs Temp Pulse Resp BP Pulse Ox O2 Del Method O2 Flow Rate 97.9 F 74 18 175/93 H 95 Nasal Cannula 2 03/22/23 07:50 03/22/23 07:50 03/22/23 07:50 03/22/23 07:50 03/22/23 07:50 03/22/23 07:50 03/22/23 07:50 Oxygen Flow Rate (L/min) 2 Oxygen Delivery Method Nasal Cannula Weight: 214 lb 1.102 oz Body Mass Index (BMI) 33.5 Intake & Output: Intake and Output for Last 24 Hours 03/21/23 03/22/23 03/23/23 03:59 03:59 03:59 Intake Total 945 / 945 50 / 50 Output Total 400 / 400 Balance 945 / 945 -350 / -350 Lab / Micro Data Result Diagrams: 03/22/23 05:38 03/22/23 05:38 Labs: Laboratory Results - last 24 hr 03/21/23 17:20: WBC 9.4, RBC 4.46 L, Hgb 13.7, Hct 41.0, MCV 91.9, MCH 30.7, MCHC 33.4, RDW Std Deviation 49.9 H, RDW Coeff of Azeem 14.8 H, Plt Count 196, MPV11.2, Immature Gran % (Auto) 0.600, Neut % (Auto) 86.9 H, Lymph % (Auto) 8.5 L, Concho % (Auto) 4.0, Eos % (Auto) 0.0, Baso % (Auto) 0.0, Absolute Neuts (auto) 8.2 H, Absolute Lymphs (auto) 0.80 L, Nucleated RBC % 0 03/21/23 17:20: Sodium 138, Potassium 4.0, Chloride 106, Carbon Dioxide 28.0, Anion Gap 4 L, BUN 31 H, Creatinine 1.68 H, Estim Creat Clear Calc 33.88, Est GFR (MDRD) Af Amer 51 L, Est GFR (MDRD) Non-Af 42 L, BUN/Creatinine Ratio 18.5, Glucose 332 H, Calcium 9.5, Troponin I High Sens 22 03/21/23 17:20: B-Natriuretic Peptide 118.7 H 03/22/23 00:29: POC Glucose 222 H 03/22/23 03:45: MRSA (PCR) Negative 03/22/23 05:38: WBC 10.8, RBC 4.11 L, Hgb 12.6 L, Hct 37.9 L, MCV 92.2, MCH 30.7, MCHC 33.2, RDW Std Deviation 48.8 H, RDW Coeff of Azeem 14.6, Plt Count 195,MPV 11.3, Immature Gran % (Auto) 0.700, Neut % (Auto) 73.1 H, Lymph % (Auto) 17.6 L, Concho % (Auto) 8.4, Eos % (Auto) 0.1, Baso % (Auto) 0.1, Absolute Neuts (auto) 7.9 H, Absolute Lymphs (auto) 1.90, Nucleated RBC % 0 03/22/23 05:38: Sodium 142, Potassium 3.6, Chloride 111 H, Carbon Dioxide 27.0, Anion Gap 4 L, BUN 26 H, Creatinine 1.40 H, Estim Creat Clear Calc 40.66, Est GFR (MDRD) Af Amer 63, Est GFR (MDRD) Non-Af 52 L, BUN/Creatinine Ratio 18.6, Glucose 143 H, Calcium 8.8 Micro: Microbiology 03/21/23 22:45 Mucosa - Nasopharyngeal Respiratory Panel (PCR) - Final 03/21/23 22:35 Urine, Clean Catch Streptococcus pneumoniae Antigen (M - Final 03/21/23 22:35 Urine, Clean Catch Legionella Antigen - Final 03/21/23 17:25 Nasal Secretion SARS-CoV-2 Antigen (Rapid) - Final Radiography Diagnostic Testing: Radiology Impression Chest X-Ray 03/21/23 17:35 IMPRESSION: No definite acute or significant abnormality seen. Electronically Signed: Yong Em MD at 17:49 EDT , Chest X-Ray 03/21/23 18:40 IMPRESSION: No significant additional findings or changes to the original chest x-ray report of earlier today. Electronically Signed: Yong Em MD at 19:09 EDT , Physical Exam Narrative General: Alert, Oriented x3, Cooperative, No apparent distress HEENT: Atraumatic, PERRLA, EOMI, Normocephalic Oral: Moist Mucosa Neck: Supple, No JVD Lungs: Diminished, Normal air movement, rhonchi, No wheeze, No rales Cardiovascular: Regular rate, Regular Rhythm, Normal S1, Normal S2, No murmurs Abdomen: Soft, Non Tender, Non-Distended, No Hepato-splenomegaly Extremities: No edema, Capillary Refill Less than 3 Seconds Skin: No rashes, No breakdown Musculoskeletal: No Tenderness to Palpation of Joints or Extremities Neurological: Cranial nerves II-XII grossly intact, Motor Exam 5/5 strength throughout, Sensory exam intact to light touch and pain Psych/Mental Status: Normal Affect, Appropriate Assessment & Plan Assessment/Plan (1) Pneumonia: (2) HTN (hypertension): PLAN: Plan 1. Community-acquired pneumonia ? Recently started on Levaquin and steroids as an outpatient because of shortness of breath ? Currently started on vancomycin and Zosyn on admission ? COVID antigen was negative ? Respiratory panel as well as strep and Legionella antigens are negative ? Sputum cultures pending 2.? CAD/HTN/HLD/paroxysmal A. fib ? Blood pressures are stable ? Can resume his home blood pressure medications ? Continue with his statin ? Continue with Eliquis 3.? DM2/CKD IIIb ? We will hold his home oral medications ? Continue sliding scale insulin ? Accu-Cheks AC at bedtime ? We will make adjustments as necessary ? Renal function is at baseline, will continue to monitor 4.? Glaucoma ? Stable ? Continue his eyedrops 5.? SUPA ? Stable ? Continue with home CPAP 6.? GERD ? Stable ? Continue with PPI DVT: Eliquis Charges/Coding Visit Charges Inpatient E&M: 05851 Subs Hosp L2 03/22/23 0920 <Electronically signed by Boris Bojorquez MD> Cosigner Signature (if applicable): CC: ~ Signed [facility] Work Phone: 1(770) 243-574106-23-[address] Ferreira [facility] March 22, 2023 5:27am Note Date/Time March 21, 2023 11:5 8pm [facility] Medical Records Department [address] [place] [address] Pharmacokinetic/Renal -Consult 03/21/237 MR#: [id number] Acct: [id number] Name: MEGAN GIMENEZ Rep #:[id number] : 1945 77 From: Rico Stone PCP: Dr. Jayme Yang MD Status:ADM I N Y Location: [place] [address] Consult Pharmacy has been consulted to manage selected antiobiotic: Vancomycin Type of Consult: New start Suspected Infection: Pneumonia Prior Doses of Antibiotics Received/Current Regimen: Medications Vancomycin HCl 750 mg/ Sodium (Chloride) 265 mls @ 250 mls/hr IV Q12H JOHANNA Vancomycin HCl 2,000 mg/ (Sodium Chloride) 540 mls @ 250 mls/hr IV X1 ONE Stop: 03/22/23 00:39 Last Admin: 03/21/23 23:35 Dose: 250 mls/hr Labs: Sodium 138 mmol/L (136-145) 03/21/23 17:20 Potassium 4.0 mmol/L (3.5-5.1) 03/21/23 17:20 Chloride 106 mmol/L (98-107) 03/21/23 17:20 Carbon Dioxide 28.0 mmol/L (21.0-32.0) 03/21/23 17:20 Anion Gap 4 (5-15) L 03/21/23 17:20 BUN 31 mg/dL (7-18) H 03/21/23 17:20 Creatinine 1.68 mg/dL (0.70-1.30) H 03/21/23 17:20 Est GFR (MDRD) Af Amer 51 mL/min (>60) L 03/21/23 17:20 Est GFR (MDRD) Non-Af 42 mL/min (>60) L 03/21/23 17:20 BUN/Creatinine Ratio 18.5 RATIO (10-20) 03/21/23 17:20 Glucose 332 mg/dL (74-106) H 03/21/23 17:20 Microbiology: Microbiology 03/21/23 22:35 Urine, Clean Catch Streptococcus pneumoniae Antigen (M - Final 03/21/23 22:35 Urine, Clean Catch Legionella Antigen - Final 03/21/23 17:25 Nasal Secretion SARS-CoV-2 Antigen (Rapid) - Final Weight used for dosin.1 kg Estimated Creatinine Clearance: 40 Goal Trough: 15-20 mcg/mL Pharmacy Plan for Drug Dosing: Pharmacy Service will continue to monitor and adjust dosing as required. Follow-Up Labs: Trough Vancomycin Labs to be done on [date and time ordered]: 03/23/23 @1100 03/21/23 7486 <Electronically signed by Rico wesley > Date _ Rico Stone 03/22/23 5565 <Electronically signed by Pedro butler MD> Cosigner Signature (if applicable): Date Pedro Ferreira MD CC: ~ Signed [facility] Work Phone: 1(411) 698-924806-23-[address] Sullivan [facility] March 22, 2023 12:32am Note Date/Time March 21, 2023 5:40 pm [facility] Medical Records Department [address] [place] [address] Emergency Department Summary 03/21/23 MR#: [id number] Acct: [id number] Name: MEGAN GIMENEZ Rep #:[id number] : 1945 77 From: James Rocha PCP: Dr. Jayme Yang MD Status:ADM I N Location: [place] [address] HPI History of Present Illness Chief Complaint: Shortness of Breath PFSH [facility] Medical History Abnormal stress test Acute bronchitis with bronchospasm Acute respiratory insufficiency Ambulates with cane Aortic stenosis Arthritis Asthma Asymptomatic hypertensive urgency Atherosclerotic heart disease of [place] coronary artery without angina pectoris Atrial fibrillation with RVR Back pain Bronchitis CAD in [place] artery Cardiology follow-up encounter Chronic anticoagulation Closed head injury Colitis Concussion Covid-19 COVID-19 virus infection CPAP (continuous positive airway pressure) dependence Dementia Diabetes Diabetes Diverticula of colon DM2 (diabetes mellitus, type 2) Essential hypertension Excessive bleeding Former smoker Gastric reflux History of atrial fibrillation History of echocardiogram History of edema History of renal disease History of steroid therapy History of stress test Hyperlipidemia Hypertensive urgency Inflammatory bowel disease Injury of head and neck Intractable pain Kidney stones Loss of consciousness Nonrheumatic aortic (valve) stenosis NSVT (nonsustained ventricular tachycardia) SUPA (obstructive sleep apnea) Paroxysmal atrial fibrillation Pulmonary hypertension Renal colic on left side Rheumatoid aortitis Rheumatoid arthritis Rhinovirus Sepsis Severe acute respiratory syndrome coronavirus 2 (SARS-CoV-2) infection ruled out Severe sepsis Sleep apnea SOB (shortness of breath) Ureterolithiasis Wears dentures Wears glasses Wears hearing aid Home Medications glimepiride 2 mg tablet 2 mg PO QHS diabetes 01/22/18 [History Last Taken 03/21/23] tqllxyaz-ahf-ewkhy acid 300 mcg-lycopene 600 mcg-lutein 300 mcg tablet (Centrum Silver Men) 1 ea PO DAILY supplement 09/17/18 [History Last Taken 03/21/23] duloxetine 60 mg capsule,delayed release (Cymbalta) 60 mg PO DAILY depression 06/02/19 [History Last Taken 03/21/23] buspirone 7.5 mg tablet 7.5 mg PO BID depression/anxiety 04/12/21 [History Last Taken 03/21/23] calcium carbonate 600 mg-vitamin D3 5 mcg (200 unit) tablet 1 tab PO DAILY supplement 12/21/21 [History Last Taken 03/21/23] latanoprost 0.005 % eye drops 1 drp LEFT EYE QPM eye health 12/22/21 [History Last Taken 03/20/23] gabapentin 600 mg tablet 300 mg PO BID neuropathy 01/26/22 [History Last Taken 03/21/23] isosorbide mononitrate 60 mg tablet,extended release 24 hr 60 mg PO BID BLOOD PRESSURE 09/06/22 [History Last Taken 10/04/22] amiodarone 200 mg tablet 100 mg PO DAILY AFIB 10/02/22 [History Last Taken 03/21/23] carvedilol 25 mg tablet 25 mg PO BID HEART 10/02/22 [History Last Taken 03/21/23] cholecalciferol (vitamin D3) 25 mcg (1,000 unit) capsule 25 mcg PO DAILY SUPPLEMENT 10/02/22 [History Last Taken 10/04/22] doxazosin 4 mg tablet 4 mg PO BID BLOOD PRESSURE 10/02/22 [History Last Taken 03/21/23] esomeprazole magnesium 20 mg capsule,delayed release (Nexium) 20 mg PO DAILY GERD 10/02/22 [History Last Taken 03/21/23] loratadine 10 mg tablet 10 mg PO DAILY ALLERGIES 10/02/22 [History Last Taken 03/21/23] losartan 100 mg tablet 100 mg PO DAILY BLOOD PRESSURE 10/02/22 [History Last Taken 03/21/23] hydralazine 100 mg tablet 100 mg PO TID BLOOD PRESSURE 10/04/22 [History Last Taken 03/21/23] omega-3 fatty acids 1,000 mg capsule 1,000 mg PO BID supplement 10/04/22 [History Last Taken 10/04/22] oxybutynin chloride 10 mg tablet,extended release 24 hr 10 mg PO QODAY bladder 10/04/22 [History Last Taken 03/21/23] timolol maleate 0.5 % eye drops 1 drp LEFT EYE DAILY EYE HEALTH 10/04/22 [History Last Taken 03/20/23] furosemide 20 mg tablet 20 mg PO DAILY PRN fluid 10/22/22 [History Last Taken Unknown] prednisone 20 mg tablet 40 mg PO BREAKFAST Check with primary doctor 10/22/22 [History Last Taken 03/21/23] potassium chloride 10 mEq tablet,extended release(part/cryst) 10 meq PO DAILY PRN supplement #90 tabs 11/26/22 [Rx Last Taken Unknown] apixaban 5 mg tablet 5 mg PO BID afib #180 tabs 12/03/22 [Rx Last Taken 03/21/23] amlodipine 2.5 mg tablet 2.5 mg PO DAILY BLOOD PRESSURE #90 tabs 12/06/22 [Rx Last Taken 03/21/23] infliximab 100 mg intravenous solution (Remicade) 100 mg IV Q7D crohns 03/21/23 [History Last Taken Unknown] rosuvastatin 20 mg tablet 20 mg PO DAILY cholesterol 03/21/23 [History Last Taken 03/21/23] tramadol 50 mg tablet 50 mg PO TID PRN PRN Pain 03/21/23 [History Last Taken Unknown] omega-3 fatty acids-vitamin E 1,000 mg capsule cap PO Check with primary doctor 03/22/23 [History Last Taken 03/21/23] Allergy/AdvReac Type Severity Reaction Status Date / Time aspirin Allergy Severe Mouth Verified 03/21/23 17:02 swelling donepezil [From Aricept] AdvReac Severe Swelling Verified 03/21/23 17:02 minoxidil AdvReac Severe swelling Verified 03/21/23 17:02 morphine AdvReac Severe UNABLE TO Verified 03/21/23 17:02 URINATE Family History Mother Heart disease Diabetes Father Heart disease Lung disease Brother Heart disease Lung disease Cancer prostate, pancreatic Sister Diabetes Cancer uterine Surgical History Cervical vertebral fusion History of back surgery History of bilateral knee replacement History of left heart catheterization (LHC) (~12/22/21) History of removal of cyst Hx of colectomy Hx of cystoscopy Hx of surgical procedure Social History Smoking Status: Former smoker how long ago did patient quit smokin, 2ppd second hand exposure: Yes alcohol intake: never substance use type: does not use caffeine: Yes Type: coffee Number of servings: 2 EXAM Physical Exam Const Vital Signs: 03/21/23 17:03 03/21/23 17:43 03/21/23 17:43 Temperature 98.3 F Temperature Source Temporal Pulse Rate 95 Respiratory Rate 24 H 20 H Respiratory Depth Respiratory Pattern Blood Pressure 184/99 H Blood Pressure Mean 127 Pulse Ox 96 94 94 Oxygen Delivery Method Room Air Room Air Room Air 03/21/23 17:43 03/21/23 19:31 Temperature Temperature Source Pulse Rate 71 Respiratory Rate 23 H Respiratory Depth Normal Respiratory Pattern Tachypnea Blood Pressure 182/100 H Blood Pressure Mean 127 Pulse Ox 92 Oxygen Delivery Method Room Air Room Air MDM MDM MDM Narrative Medical decision making narrative: HISTORY OF PRESENT ILLNESS: 77-year-old male here for shortness of breath. Notes this is been going on for 1 month. Notes he has been treated with steroids antibiotics without improvement by his primary doctor Dr. Samano. He further states he has been coughing and short of breath with exertion. Denies lower extremity edema. The patient denies recent surgery in the last 4 weeks or immobilization in the last 3 days, denies previous diagnosis of DVT or PE, hemoptysis, unilateral leg swelling or malignancy with treatment the last 6 months. No estrogen use noted. REVIEW OF SYSTEMS: Pertinent positives: Shortness of breath, cough Pertinent negatives: Syncope, chest pain PHYSICAL EXAM: Nursing triage notes reviewed, Vital signs reviewed Constitutional: please see mdm HENT: MMM Eyes: Pupils equal round and reactive to light, Extraocular muscles intact Neck: No stridor, no JVD, full neck ROM Lungs: Increased work of breathing, conversational dyspnea, audible rales, focalasymmetry on lung exam with right lower lobe consolidation noted Heart: Regular rate and rhythm, No murmurs, No rubs and No gallops, 2+ distal pulses (radial, femoral, posterior tibial) in all extremities Abdomen: Soft, there is no tenderness, rigidity, rebound or guarding, no obviousperitoneal signs, no palpable pulsatile abdominal masses, no auscultated abdominal bruit : No CVAT Extremities: No edema Neuro: No focal neurological deficits, cranial nerves II through XII intact, 5/5strength in all extremities. Intact sensation to light touch in all extremities,2+ reflexes bilateral patella tendons. Normal gait. No ataxia. Skin: No rash or lesions noted MEDICAL DECISION MAKING: Chief Complaint: Shortness of breath External records reviewed: Last echocardiogram 2021 shows ejection fraction 65% Factors affecting care: Hypertension, hyperlipidemia, pulmonary hypertension, asthma, CAD, SUPA, A-fib on Eliquis, rheumatoid arthritis, Social determinants of health: Elderly History obtained from others: Consults: Internal Medicine (Dr. Ferreira) ALL IMAGES (IF OBTAINED) HAVE BEEN PERSONALLY REVIEWED AND INTERPRETED BY MYSELF. MDM Narrative: The patient was hypertensive he was afebrile but he was tachypneic initially. Lungs with asymmetric breath sounds concerning for focal consolidation in the setting of cough I was most concerned about pneumonia I considered the following differential diagnosis: Pneumonia, COVID, ACS, arrhythmia, heart failure, anemia I obtained a broad lab and imaging work-up to further elucidate the etiology the patient's complaints. [X-ray was reviewed by myself shows evidence of a right lower lobe infiltrate although the radiologist read the x-ray is negative I believe the patient suffering from pneumonia. I will treat empirically with ceftriaxone azithromycin. Remainder of labs remarkable for no leukocytosis, baseline CKD, evidence of volume overload with elevated BNP (no prior for comparison). Given the patient's advanced age, increased work of breathing, tachypnea and borderline hypoxia he will require hospitalization for antimicrobial therapy and further evaluation. This was discussed with the hospitalist. The patient and/or family, caregivers express understanding. The patient and/or family, caregivers agrees with the plan. Total critical care time today provided was at least 0 minutes. This excludes separately billable procedures. Critical care time (if documented) is secondary to the patient having high probability of clinically significant/life threatening deterioration in the patient's condition which required my urgent intervention. Shared decision making: I will have a discussion with the patient and or visitors regarding risk/benefits of further testing or admission. They will be made aware of of the risk/benefits inherent in this decision they will be given the opportunity to voice understanding. Lab Data Attestation: I reviewed the patient's lab results. Lab results narrative: CBC without leukocytosis, severe anemia, no thrombocytopenia. BMP with no significant electrolyte abnormalities,baseline CKD Troponin is negative, no evidence of myocardial ischemia BNP mildly elevated associated with increased volume, ventricular stretch or heart failure EKG non-ischemic Labs: Laboratory Results - last 24 hr 03/21/23 03/21/23 03/21/23 17:20 17:20 17:20 WBC 9.4 RBC 4.46 L Hgb 13.7 Hct 41.0 MCV 91.9 MCH 30.7 MCHC 33.4 RDW Std Deviation 49.9 H RDW Coeff of Azeem 14.8 H Plt Count 196 MPV 11.2 Immature Gran % (Auto) 0.600 Neut % (Auto) 86.9 H Lymph % (Auto) 8.5 L [place] % (Auto) 4.0 Eos % (Auto) 0.0 Baso % (Auto) 0.0 Absolute Neuts (auto) 8.2 H Absolute Lymphs (auto) 0.80 L Nucleated RBC % 0 Sodium 138 Potassium 4.0 Chloride 106 Carbon Dioxide 28.0 Anion Gap 4 L BUN 31 H Creatinine 1.68 H Estim Creat Clear Calc 33.88 Est GFR (MDRD) Af Amer 51 L Est GFR (MDRD) Non-Af 42 L BUN/Creatinine Ratio 18.5 Glucose 332 H Calcium 9.5 Troponin I High Sens 22 B-Natriuretic Peptide 118.7 H Radiography Diagnostic Testing: Clinical Impression(s) from Imaging Studies Chest X-Ray 03/21/23 17:35 IMPRESSION: No definite acute or significant abnormality seen. Electronically Signed: Yong Em MD at 17:49 EDT , Chest X-Ray 03/21/23 18:40 IMPRESSION: No significant additional findings or changes to the original chest x-ray report of earlier today. Electronically Signed: Yong Em MD at 19:09 EDT , Chest x-ray read interpreted personally myself shows evidence of right lower lobe pneumonia. Discharge Plan Disposition Disposition: Acute Care Hospital [facility] Discharge Date/Time: 03/21/23 22:20 What to do if you have Problems For any increased pain, shortness of breath, bleeding, nausea or vomiting, chest pain, or any unexpected problems, contact your Primary Care Provider. Call [facility] ([phone]) or report to the closest Emergency Room. Call 911 if necessary. 03/22/23 0032 <Electronically signed by James Sullivan DO> Cosigner Signature (if applicable): CC: Dr. Jayme Yang MD ~ Signed [facility] Work Phone: 1(290) 900-843406-22-2023 History and physical note Author Dr. Ferreira [facility] March 21, 2023 9:30pm Note Date/Time March 21, 2023 8:25 pm [facility] Medical Records Department [facility] [place] [address] H&P Exam - Hospitalist 03/21/232024 MR#: [id number] Acct: [id number] Name: MEGAN GIMENEZ Rep #:[id number] : 1945 77 From: Pedro Ferreira MD PCP: Dr. Jayme Yang MD Status:REG E R Location: ED HPI - [facility] Date of Admission: 03/21/23 Date of Service: 03/21/23 Chief Complaint: SOB HPI Narrative MEGAN GIMENEZ, is a 77 M with a significant history of diabetes mellitus; hypertension; atrial fibrillation who presents to the emergency department with 1 month history of persistent shortness of breath. Associated with his symptoms is a productive cough of yellow sputum. The patient's is unable to sleep because of coughing. Also, he has paroxysmal nocturnal dyspnea. Patient deniesany real orthopnea. He denies any weight gain. He denies any swelling in extremities for the past 1 month. Patient was put on a course of Z-Adore that he completed therapy. Three-day before presentation he was started on a 10 days ofLevaquin and a 15 days of steroids. Because he continues to have his symptoms he came to the emergency department. Reported at the emergency department patient was ambulated. His oxygen saturation was 90% on room air so a decision was made for patient to stay at the hospital. [facility] Medical History Abnormal stress test Acute bronchitis with bronchospasm Acute respiratory insufficiency Ambulates with cane Aortic stenosis Arthritis Asthma Asymptomatic hypertensive urgency Atherosclerotic heart disease of [place] coronary artery without angina pectoris Atrial fibrillation with RVR Back pain Bronchitis CAD in [place] artery Cardiology follow-up encounter Chronic anticoagulation Closed head injury Colitis Concussion Covid-19 COVID-19 virus infection CPAP (continuous positive airway pressure) dependence Dementia Diabetes Diabetes Diverticula of colon DM2 (diabetes mellitus, type 2) Essential hypertension Excessive bleeding Former smoker Gastric reflux History of atrial fibrillation History of echocardiogram History of edema History of renal disease History of steroid therapy History of stress test Hyperlipidemia Hypertensive urgency Inflammatory bowel disease Injury of head and neck Intractable pain Kidney stones Loss of consciousness Nonrheumatic aortic (valve) stenosis NSVT (nonsustained ventricular tachycardia) SUPA (obstructive sleep apnea) Paroxysmal atrial fibrillation Pulmonary hypertension Renal colic on left side Rheumatoid aortitis Rheumatoid arthritis Rhinovirus Sepsis Severe acute respiratory syndrome coronavirus 2 (SARS-CoV-2) infection ruled out Severe sepsis Sleep apnea SOB (shortness of breath) Ureterolithiasis Wears dentures Wears glasses Wears hearing aid Home Medications glimepiride 2 mg tablet 2 mg PO QHS diabetes 01/22/18 [History Last Taken 10/03/22] izjypwqk-cvr-ntkmq acid 300 mcg-lycopene 600 mcg-lutein 300 mcg tablet (Centrum Silver Men) 1 ea PO DAILY supplement 09/17/18 [History Last Taken 10/04/22] duloxetine 60 mg capsule,delayed release (Cymbalta) 60 mg PO DAILY depression 06/02/19 [History Last Taken 10/04/22] buspirone 7.5 mg tablet 7.5 mg PO BID depression/anxiety 04/12/21 [History Last Taken 10/04/22] calcium carbonate 600 mg-vitamin D3 5 mcg (200 unit) tablet 1 tab PO DAILY supplement 12/21/21 [History Last Taken 10/04/22] latanoprost 0.005 % eye drops 1 drp LEFT EYE QPM eye health 12/22/21 [History Last Taken 10/03/22] gabapentin 600 mg tablet 300 mg PO BID neuropathy 01/26/22 [History Last Taken 10/04/22] isosorbide mononitrate 60 mg tablet,extended release 24 hr 60 mg PO BID BLOOD PRESSURE 09/06/22 [History Last Taken 10/04/22] amiodarone 200 mg tablet 100 mg PO DAILY AFIB 10/02/22 [History Last Taken 10/04/22] carvedilol 25 mg tablet 25 mg PO BID HEART 10/02/22 [History Last Taken 10/04/22] cholecalciferol (vitamin D3) 25 mcg (1,000 unit) capsule 25 mcg PO DAILY SUPPLEMENT 10/02/22 [History Last Taken 10/04/22] doxazosin 4 mg tablet 4 mg PO BID BLOOD PRESSURE 10/02/22 [History Last Taken 10/04/22] esomeprazole magnesium 20 mg capsule,delayed release (Nexium) 20 mg PO DAILY GERD 10/02/22 [History Last Taken 10/04/22] loratadine 10 mg tablet 10 mg PO DAILY ALLERGIES 10/02/22 [History Last Taken 10/04/22] losartan 100 mg tablet 100 mg PO DAILY BLOOD PRESSURE 10/02/22 [History Last Taken 10/04/22] hydralazine 100 mg tablet 100 mg PO TID BLOOD PRESSURE 10/04/22 [History Last Taken 10/04/22] omega-3 fatty acids 1,000 mg capsule 1,000 mg PO BID supplement 10/04/22 [History Last Taken 10/04/22] oxybutynin chloride 10 mg tablet,extended release 24 hr 10 mg PO DAILY bladder 10/04/22 [History Last Taken 10/04/22] timolol maleate 0.5 % eye drops 1 drp LEFT EYE DAILY EYE HEALTH 10/04/22 [History Last Taken 10/03/22] furosemide 20 mg tablet 20 mg PO DAILY PRN fluid 10/22/22 [History Last Taken Unknown] prednisone 20 mg tablet 10 mg PO BREAKFAST 10/22/22 [History Last Taken Unknown] potassium chloride 10 mEq tablet,extended release(part/cryst) 10 meq PO DAILY PRN supplement #90 tabs 11/26/22 [Rx Last Taken Unknown] rosuvastatin 20 mg tablet 10 mg PO DAILY cholesterol #90 tabs 11/26/22 [Rx Last Taken Unknown] apixaban 5 mg tablet 5 mg PO BID afib #180 tabs 12/03/22 [Rx Last Taken Unknown] amlodipine 2.5 mg tablet 2.5 mg PO DAILY BLOOD PRESSURE #90 tabs 12/06/22 [Rx Last Taken Unknown] Allergy/AdvReac Type Severity Reaction Status Date / Time aspirin Allergy Severe Mouth Verified 03/21/23 17:02 swelling donepezil [From Aricept] AdvReac Severe Swelling Verified 03/21/23 17:02 minoxidil AdvReac Severe swelling Verified 03/21/23 17:02 morphine AdvReac Severe UNABLE TO Verified 03/21/23 17:02 URINATE Family History Mother Heart disease Diabetes Father Heart disease Lung disease Brother Heart disease Lung disease Cancer prostate, pancreatic Sister Diabetes Cancer uterine Surgical History Cervical vertebral fusion History of back surgery History of bilateral knee replacement History of left heart catheterization (LHC) (~12/22/21) History of removal of cyst Hx of colectomy Hx of cystoscopy Hx of surgical procedure Social History Smoking Status: Former smoker how long ago did patient quit smokin, 2ppd second hand exposure: Yes alcohol intake: never substance use type: does not use caffeine: Yes Type: coffee Number of servings: 2 ROS ROS Narrative Pertinent positives and pertinent negatives as noted in HPI. All other systems were reviewed and are negative Vital Signs Vital Signs Vital Signs: 03/21/23 17:03 03/21/23 17:43 03/21/23 17:43 Temperature 98.3 F Temperature Source Temporal Pulse Rate 95 Respiratory Rate 24 H 20 H Respiratory Depth Respiratory Pattern Blood Pressure 184/99 H Blood Pressure Mean 127 Pulse Ox 96 94 94 Oxygen Delivery Method Room Air Room Air Room Air 03/21/23 17:43 03/21/23 19:31 Temperature Temperature Source Pulse Rate 71 Respiratory Rate 23 H Respiratory Depth Normal Respiratory Pattern Tachypnea Blood Pressure 182/100 H Blood Pressure Mean 127 Pulse Ox 92 Oxygen Delivery Method Room Air Room Air Weight Weight: 96.116 kg Body Mass Index (BMI) 33.2 Physical Exam Narrative Physical exam: General: Well-nourished, well-developed. Head: Normocephalic, atraumatic, no tenderness Eyes: Vision is grossly intact. EOMI ENT, no trauma, moist mucous membranes, no rhinorrhea Neck: Nontender, No thyromegaly. CVS: Regular rate and rhythm. S1-S2 present. No murmur, gallop or rub. Respiratory : Audible rhonchi, chest wall nontender Abdomen: Soft, nontender, nondistended, normal bowel sounds, no masses : Deferred Back: Nontender, no CVA tenderness. Extremities: Nontender full range of motion, no trauma Skin: Normal color, no trauma, abrasions Neuro: Alert, oriented, cranial nerves II through XII grossly intact. Psychiatry: Normal mood. Normal affect. Not depressed. Not anxious. Results Lab / Micro Data Result Diagrams: 03/21/23 17:20 03/21/23 17:20 Labs: Laboratory Results - last 24 hr 03/21/23 17:20: WBC 9.4, RBC 4.46 L, Hgb 13.7, Hct 41.0, MCV 91.9, MCH 30.7, MCHC 33.4, RDW Std Deviation 49.9 H, RDW Coeff of Azeem 14.8 H, Plt Count 196, MPV11.2, Immature Gran % (Auto) 0.600, Neut % (Auto) 86.9 H, Lymph % (Auto) 8.5 L, [place] % (Auto) 4.0, Eos % (Auto) 0.0, Baso % (Auto) 0.0, Absolute Neuts (auto) 8.2 H, Absolute Lymphs (auto) 0.80 L, Nucleated RBC % 0 03/21/23 17:20: Sodium 138, Potassium 4.0, Chloride 106, Carbon Dioxide 28.0, Anion Gap 4 L, BUN 31 H, Creatinine 1.68 H, Estim Creat Clear Calc 33.88, Est GFR (MDRD) Af Amer 51 L, Est GFR (MDRD) Non-Af 42 L, BUN/Creatinine Ratio 18.5, Glucose 332 H, Calcium 9.5, Troponin I High Sens 22 03/21/23 17:20: B-Natriuretic Peptide 118.7 H Micro: Microbiology 03/21/23 17:25 Nasal Secretion SARS-CoV-2 Antigen (Rapid) - Final Radiology Impression Chest X-Ray 03/21/23 17:35 IMPRESSION: No definite acute or significant abnormality seen. Electronically Signed: Yong Em MD at 17:49 EDT , Chest X-Ray 03/21/23 18:40 IMPRESSION: No significant additional findings or changes to the original chest x-ray report of earlier today. Electronically Signed: Yong Em MD at 19:09 EDT , Assessment & Plan Assessment/Plan (1) Pneumonia: (2) HTN (hypertension): PLAN: Plan Pneumonia Rapid COVID antigen negative. Chest x-ray: Interpreted by radiologist as no acute cardiopulmonary process. Upon hospital interpretation lateral view appears to have infiltrates. Respiratory Gram stain and culture pending Antibiotics: Vancomycin and Zosyn ordered. Recently started on prednisone outpatient. Prednisone ordered. DuoNeb scheduled. Albuterol as needed Legionella antigen screen and Strep antigen ordered CBC with white count of 9.4. Trend. Hypertension Blood pressure is not within goal Home blood pressure medication continued. As needed hydralazine ordered. Trend blood pressure and adjust blood pressure medications. Diabetes mellitus Patient with hyperglycemia on presentation Continue home regimen. Monitor Accu-Cheks Correction scale insulin ordered. Paroxysmal A-fib Patient in sinus rhythm on presentation. Continue home regimen. Continue home anticoagulation. 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 Stable Trend BMP. DVT prophylaxis Home anticoagulation for A-fib continued. Charges/Coding Visit Charges Inpatient E&M: 25497 Init Hosp L3 03/21/232129 <Electronically signed by Pedro Ferreira MD> Cosigner Signature (if applicable): CC: Dr. Pedro Ferreira MD; Dr. Jayme Yang MD~ Signed [facility] Work Phone: 1(913) 148-349901-03-[address] Castro [facility] October 02, 2022 6:02pm Note Date/Time October 02, 2022 5: 05pm [facility] Medical Records Department [address] [place] [address] Consultation - Orthopedics 10/02/22 1704 MR#: [id number] Acct: [id number] Name: MEGAN GIMENEZ Rep #:[id number] : 1945 77 From: Evin Meza PCP: Dr. Jayme Yang MD Status:PRE C LI Location: LAB.FUTURE HPI Consult Data Date of Consult: 10/02/22 PCP / Referring MD: Milton Mckinley ER physician HPI Narrative Reason for Consultation: Right knee pain HPI Narrative: MEGAN GIMENEZ, is a 77 M multiple medical comorbidities including atrial fibrillation and dementia who presents with right knee pain. Patient is 22 years status post right total knee replacement with Dr. Hess. Patient reports2 to 3 days of intense pain over the anterior knee. He reports the pain is overthe anterior proximal tibia. ER physician noted erythema however erythema was largely diminished upon my examination. Patient denies any recent illnesses. His is at bedside and also denies any recent illnesses. He has not had anyrecent dental work as reported by both parties. He has had increasing difficulty the with range of motion and weightbearing. He notes burning over the anterior portion of the patella tendon. There is no large bursal area here. Hehas not had previous history of gout however uric acid was elevated on serum exam today. Patient is on Eliquis for his atrial fibrillation last dose was taken this morning. He has not had any antibiotics yet. I was consulted for aspiration based on concerns for infection. Currently denies fevers chills or night sweats. No history of trauma [facility] Medical History Abnormal stress test Acute bronchitis with bronchospasm Acute respiratory insufficiency Ambulates with cane Aortic stenosis Arthritis Asthma Asymptomatic hypertensive urgency Atherosclerotic heart disease of [place] coronary artery without angina pectoris Atrial fibrillation with RVR Back pain Bronchitis CAD in [place] artery Cardiology follow-up encounter Chronic anticoagulation Closed head injury Colitis Concussion Covid-19 COVID-19 virus infection CPAP (continuous positive airway pressure) dependence Dementia Diabetes Diabetes Diverticula of colon DM2 (diabetes mellitus, type 2) Essential hypertension Excessive bleeding Former smoker Gastric reflux History of atrial fibrillation History of echocardiogram History of edema History of renal disease History of steroid therapy History of stress test Hyperlipidemia Hypertensive urgency Inflammatory bowel disease Injury of head and neck Intractable pain Kidney stones Loss of consciousness Nonrheumatic aortic (valve) stenosis NSVT (nonsustained ventricular tachycardia) SUPA (obstructive sleep apnea) Paroxysmal atrial fibrillation Pulmonary hypertension Renal colic on left side Rheumatoid aortitis Rheumatoid arthritis Rhinovirus Sepsis Severe acute respiratory syndrome coronavirus 2 (SARS-CoV-2) infection ruled out Severe sepsis Sleep apnea SOB (shortness of breath) Ureterolithiasis Wears dentures Wears glasses Wears hearing aid Home Medications glimepiride 2 mg tablet 2 mg PO DAILY diabetes 01/22/18 [History Last Taken 10/01/22] undnivuo-bde-ilwsc acid 300 mcg-lycopene 600 mcg-lutein 300 mcg tablet 1 ea PO DAILY supplement 09/17/18 [History Last Taken 10/01/22] duloxetine 60 mg capsule,delayed release (Cymbalta) 60 mg PO DAILY depression 06/02/19 [History Last Taken 10/02/22] buspirone 7.5 mg tablet 7.5 mg PO BID mental health 04/12/21 [History Last Taken 10/02/22] albuterol sulfate 90 mcg/actuation aerosol inhaler 2 puff inhalation Q6H PRN SOB08/09/21 [History Last Taken Unknown] rosuvastatin 20 mg tablet 20 mg PO DAILY #90 tabs 11/21/21 [Rx Last Taken 10/01/22] apixaban 5 mg tablet 5 mg PO BID afib #180 tabs 11/22/21 [Rx Last Taken 10/02/22] potassium chloride 10 mEq tablet,extended release(part/cryst) 10 meq PO DAILY #90 tabs 11/22/21 [Rx Last Taken 10/01/22] omega-3 fatty acids 1,000 mg PO BID 12/13/21 [History Last Taken 10/02/22] calcium carbonate 600 mg-vitamin D3 5 mcg (200 unit) tablet 1 tab PO DAILY supplement 12/21/21 [History Last Taken 10/01/22] latanoprost 0.005 % eye drops 1 drp LEFT EYE QPM eye health 12/22/21 [History Last Taken 10/01/22] timolol 0.25 % eye drops 1 drp LEFT EYE DAILY 12/22/21 [History Last Taken 10/02/22] gabapentin 600 mg tablet 300 mg PO BID neuropathy 01/26/22 [History Last Taken 10/02/22] ipratropium bromide 21 mcg (0.03 %) nasal spray 2 spray intranasal TID PRN ALLERGIES 01/26/22 [History Last Taken Unknown] hydralazine 100 mg tablet 100 mg PO TID BP #90 tabs 05/23/22 [Rx Last Taken 10/02/22] hydrochlorothiazide 25 mg tablet 25 mg PO DAILY #30 tabs 07/04/22 [Rx Last Taken 10/02/22] isosorbide mononitrate 60 mg tablet,extended release 24 hr 60 mg PO BID 09/06/22[History Last Taken 10/02/22] amiodarone 200 mg tablet 100 mg PO DAILY HEART 10/02/22 [History Last Taken 10/02/22] amlodipine 2.5 mg tablet 2.5 mg PO DAILY BP 10/02/22 [History Last Taken 10/02/22] carvedilol 25 mg tablet 25 mg PO BID HEART 10/02/22 [History Last Taken 10/02/22] cholecalciferol (vitamin D3) 25 mcg (1,000 unit) capsule 25 mcg PO DAILY SUPPLEMENT 10/02/22 [History Last Taken 10/01/22] doxazosin 4 mg tablet 4 mg PO BID HEART 10/02/22 [History Last Taken 10/02/22] esomeprazole magnesium 20 mg capsule,delayed release (Nexium) 20 mg PO DAILY GERD 10/02/22 [History Last Taken 10/02/22] loratadine 10 mg tablet 10 mg PO DAILY ALLERGIES 10/02/22 [History Last Taken 10/01/22] losartan 100 mg tablet 100 mg PO DAILY BP 10/02/22 [History Last Taken 10/02/22] Allergy/AdvReac Type Severity Reaction Status Date / Time aspirin Allergy Severe Mouth Verified 10/02/22 10:26 swelling donepezil [From Aricept] AdvReac Severe Swelling Verified 10/02/22 10:26 minoxidil AdvReac Severe swelling Verified 10/02/22 10:26 morphine AdvReac Severe UNABLE TO Verified 10/02/22 10:26 URINATE Family History Mother Heart disease Diabetes Father Heart disease Lung disease Brother Heart disease Lung disease Cancer prostate, pancreatic Sister Diabetes Cancer uterine Surgical History Cervical vertebral fusion History of back surgery History of bilateral knee replacement History of left heart catheterization (LHC) (~12/22/21) History of removal of cyst Hx of colectomy Hx of cystoscopy Hx of surgical procedure Social History Smoking Status: Former smoker how long ago did patient quit smokin, 2ppd second hand exposure: Yes alcohol intake: never substance use type: does not use caffeine: Yes Type: coffee Number of servings: 2 ROS Constitutional Constitutional: Reports systems reviewed and no addt'l complaints, except as documented Eyes Eyes: Reports systems reviewed and no addt'l complaints, except as documented ENT HEENT: Reports systems reviewed and no addt'l complaints, except as documented Cardiovascular Cardiovascular: Reports systems reviewed and no addt'l complaints, except as documented Respiratory/Chest Respiratory/Chest: Reports systems reviewed and no addt'l complaints, except as documented Gastrointestinal Gastrointestinal: Reports systems reviewed and no addt'l complaints, except as documented Genitourinary Genitourinary: Reports systems reviewed and no addt'l complaints, except as documented Musculoskeletal Musculoskeletal: Reports systems reviewed and no addt'l complaints, except as documented Integumentary Integumentary: Reports systems reviewed and no addt'l complaints, except as documented Neurologic Neurologic: Reports systems reviewed and no addt'l complaints, except as documented Psychiatric Psychiatric: Reports systems reviewed and no addt'l complaints, except as documented Vital Signs Vital Signs Vital Signs: See department vital signs reviewed. Physical Exam Const alert and oriented x3 HEENT normocephalic Eyes PERRL Neck no JVD Resp normal respiratory effort Cardio Cardio Narrative: Palpable pulses in distal extremity GI non-distended Extremity Extremity Narrative: Right lower extremity: Minimal erythema. Pain with active range of motion. Tenderness palpation over the patella tendon. No large area of anterior fluctuance. Mild swelling anteriorly. Moderate palpable effusion. Increased warmth around the knee. Neurovascular intact distally Skin no wounds Neuro CN's II-XII intact bilaterally Psych affect normal Medical Records Data Attestation: I reviewed the patient's medical records Medical records narrative: Right knee x-ray shows stable well aligned right total knee replacement. Implants appear to be well fixed. Patella tracks well. Overall alignment is good. Patient does have a small amount of visible osteolysis around the lateralscrew of the press- fit implant. Lab / Micro Data Attestation: I reviewed the patient's lab results. Lab results narrative: CBC was reviewed. ESR 28, CRP 26 Labs: Aspiration results pending Assessment & Plan Assessment/Plan (1) History of total knee arthroplasty: PLAN: See next problem (2) Effusion, right knee: PLAN: Patient is 22 years status post right total knee replacement with previousprovider my practice. He presents today with 2 to 3 days of increasing right knee pain. No previous infections. No recent dental work. He does have significant medical comorbidities which and advanced age which could compromise his immune system. Based on his elevated CRP I did recommend an aspiration today. See procedure note below. We were able to aspirate 2 cc of healthy appearing synovial fluid. These were sent for culture, gram stain, crystals as well as cell count. Patient also has pain in the anterior prepatellar area may have findings consistent with prepatellar bursitis at this time it appears to beaseptic in nature. I explained to the patient that based on my radiographic review the knee replacement appears to be in good alignment with well fixed implants however early loosening may be difficult to detect as well as the full severity of osteolysis can be difficult to fully appreciate on plain films. I recommended we proceed with the aspiration order to rule out infection. If we can rule out infection would likely proceed with further work- up in an outpatient setting if he can tolerate the weightbearing restrictions. After theaspiration patient was given IV antibiotics for potential for infectious etiology. We will also consider IV steroids if infection is ruled out with the fluid. If patient has suspicious fluid we may also consider irrigation debridement which will require 48 hours of discontinuation of his Eliquis. Oncethe aspiration results have returned we will determine final disposition from the emergency department. I have notified the emergency room physician of the current treatment plan and all parties are in agreement. Procedure: Right knee aspiration. Sterile technique was used including sterile gloves. Once the lateral suprapatellar portal was palpated and marked the area was cleaned with Betadine followed by chlorhexidine. 18-gauge needle was placedon a sterile 20 cc syringe. Using sterile gloves we again palpated the area anddid 1 final cleaning with alcohol. The 18-gauge needle was introduced into the knee we were able to obtain 2 cc of straw-colored healthy appearing fluid. The majority the fluid was placed in purple top tube the remainder was placed in a red top tube for cultures. Fluid was sent to the lab for stat report. [facility] Office: 10/02/22 1721 <Electronically signed by Evin Castro MD> Cosigner Signature (if applicable): CC: Dr. Jayme Yang MD~ Signed ADDENDUM by Dr. Evin Castro MD on 10/02/22 at 1802 Addendum Cell count was reviewed. Roughly 300 white blood cells were appreciated. About43% PMNs were appreciated. Based on this patient does not meet criteria for infection. Discussed this with the emergency room physician. He does have someprepatellar swelling on the x-ray and pain in the prepatellar area. He also haselevated uric acid. At this time I recommended we go ahead and treat him for any potential prepatellar bursitis or cellulitis based on his reports of anterior erythema. He was given IV antibiotics in emergency department. I am going to have him placed on 2 weeks of doxycycline. We will follow up in the office in 2 weeks. He was instructed to use a walker or crutches for any pain with weightbearing. 10/02/22 180<Electronically signed by Evin Castro MD> Cosigner Signature (if applicable): cc: Dr. Jayme Yang MD ~* Signed [facility] Work Phone: Evaluation note* Diagnosis Onset Date Resolution Status Aortic stenosis acute LVH (left ventricular hypertrophy) acute Paroxysmal atrial fibrillation acute Syncope and collapse acute Essential hypertension chron ic Hyperlipidemia chronic SUPA (obstructive sleep apnea) chronic Pulmonary hypertension chron ic Aortic stenosis acute Paroxysmal atrial fibrillation acute Syncope and collapse acute Essential hypertension chron ic Hyperlipidemia chronic Abnormal stress test acute Aortic stenosis acute Paroxysmal atrial fibrillation acute Syncope and collapse acute Essential hypertension chron ic Hyperlipidemia chronic Abnormal stress test acute Aortic stenosis acute CAD in [place] artery acute Chronic anticoagulation acut e Closed head injury acute Contusion of shoulder acute Diabetes acute Myoclonic jerking acute NSVT (nonsustained ventricular tachycardia) acute Paroxysmal atrial fibrillation acute Syncope acute Asymptomatic hypertensive urgency chronic Essential hypertension chron ic [facility] Work Phone: Evaluation note* Diagnosis Onset Date Resolution Status LVH (left ventricular hypertrophy) acute Syncope and collapse acute Hyperlipidemia chronic SUPA (obstructive sleep apnea) chronic Pulmonary hypertension [facility] Syncope and collapse acute Hyperlipidemia chronic Syncope and collapse acute Hyperlipidemia chronic Contusion of shoulder resolv ed Myoclonic jerking resolved Syncope resolved [facility] Work Phone: Evaluation note* Diagnosis Onset Date Resolution Status Syncope and collapse acute Hyperlipidemia chronic Syncope and collapse acute Hyperlipidemia chronic Contusion of shoulder resolv ed Myoclonic jerking resolved Syncope resolved Atherosclerotic heart diseas e of [place] coronary artery without angina pectoris acute Fatigue acute Syncope and collapse acute Hyperlipidemia chronic Asthma chronic SUPA (obstructive sleep apnea) chronic Pulmonary hypertension [facility] Work Phone: Evaluation note* Diagnosis Onset Date Resolution Status Syncope and collapse acute Hyperlipidemia chronic Contusion of shoulder resolv ed Myoclonic jerking resolved Syncope resolved Atherosclerotic heart diseas e of [place] coronary artery without angina pectoris acute Fatigue acute Syncope and collapse acute Hyperlipidemia chronic Asthma chronic SUPA (obstructive sleep apnea) chronic Pulmonary hypertension [facility] Work Phone: Evaluation note* Diagnosis Onset Date Resolution Status Contusion of shoulder resolv ed Myoclonic jerking resolved Syncope resolved Atherosclerotic heart diseas e of [place] coronary artery without angina pectoris acute Fatigue acute Syncope and collapse acute Hyperlipidemia chronic Asthma chronic SUPA (obstructive sleep apnea) chronic Pulmonary hypertension [facility] Work Phone: Evaluation note* Diagnosis Onset Date Resolution Status Atherosclerotic heart diseas e of [place] coronary artery without angina pectoris acute Essential hypertension acute Syncope and collapse acute Hyperlipidemia [facility] Work Phone: Evaluation note* Diagnosis Onset Date Resolution Status Asthma chronic SUPA (obstructive sleep apnea) [facility] Work Phone: Evaluation note* Diagnosis Onset Date Resolution Status Asthma chronic SUPA (obstructive sleep apnea) chronic Atherosclerotic heart diseas e of [place] coronary artery without angina pectoris acute Essential hypertension acute Fatigue acute Rib pain acute Syncope and collapse acute Hyperlipidemia [facility] Work Phone: Evaluation note* Diagnosis Onset Date Resolution Status Asthma chronic SUPA (obstructive sleep apnea) chronic Atherosclerotic heart diseas e of [place] coronary artery without angina pectoris acute Essential hypertension acute Fatigue acute Rib pain acute Syncope and collapse acute Hyperlipidemia chronic Anticoagulant long-term use acute Arthralgia of foot, left acu te Arthralgia of right knee acu te Failure of outpatient treatment acute Gout flare acute History of total knee arthroplasty acute Hypokalemia acute Inability to walk acute [facility] Work Phone: Evaluation note* Diagnosis Onset Date Resolution Status Asthma chronic SUPA (obstructive sleep apnea) chronic Atherosclerotic heart diseas e of [place] coronary artery without angina pectoris acute Essential hypertension acute Fatigue acute Rib pain acute Syncope and collapse acute Hyperlipidemia chronic Anticoagulant long-term use acute Arthralgia of foot, left acu te Arthralgia of right knee acu te Failure of outpatient treatment acute Gout flare acute Hypokalemia acute Inability to walk acute [facility] Work Phone: Evaluation note* Diagnosis Onset Date Resolution Status Asthma chronic SUPA (obstructive sleep apnea) chronic Atherosclerotic heart diseas e of [place] coronary artery without angina pectoris acute Essential hypertension acute Fatigue acute Rib pain acute Syncope and collapse acute Hyperlipidemia chronic Anticoagulant long-term use acute Arthralgia of foot, left acu te Arthralgia of right knee acu te Failure of outpatient treatment acute Gout flare acute Hypokalemia acute Inability to walk acute Atherosclerotic heart diseas e of [place] coronary artery without angina pectoris acute Essential hypertension acute Hyperlipidemia chronic [facility] Work Phone: Evaluation note* Diagnosis Onset Date Resolution Status Atherosclerotic heart diseas e of [place] coronary artery without angina pectoris acute Essential hypertension acute Fatigue acute Rib pain acute Syncope and collapse acute Hyperlipidemia chronic Anticoagulant long-term use acute Arthralgia of foot, left acu te Arthralgia of right knee acu te Failure of outpatient treatment acute Gout flare acute Hypokalemia acute Inability to walk acute Atherosclerotic heart diseas e of [place] coronary artery without angina pectoris acute Essential hypertension acute Hyperlipidemia chronic Effusion, right knee acute [facility] Work Phone: Evaluation note* Diagnosis Onset Date Resolution Status Effusion, right knee acute Asthma chronic SUPA (obstructive sleep apnea) chronic [facility] Work Phone: Evaluation note* Diagnosis Onset Date Resolution Status Effusion, right knee acute Asthma chronic SUPA (obstructive sleep apnea) chronic Pneumonia acute HTN (hypertension) chronic [facility] Work Phone: Evaluation note* Diagnosis Onset Date Resolution Status Effusion, right knee acute Asthma chronic SUPA (obstructive sleep apnea) chronic Pneumonia acute Sinus drainage acute Asthma chronic SUPA (obstructive sleep apnea) [facility] Work Phone: Evaluation note* Diagnosis Onset Date Resolution Status Asthma chronic SUPA (obstructive sleep apnea) chronic Pneumonia acute Sinus drainage acute Asthma chronic SUPA (obstructive sleep apnea) chronic [facility] Work Phone: Evaluation note* Diagnosis Onset Date Resolution Status Asthma chronic SUPA (obstructive sleep apnea) chronic Pneumonia acute Sinus drainage acute Asthma chronic SUPA (obstructive sleep apnea) chronic Asthma chronic SUPA (obstructive sleep apnea) chronic Atherosclerotic heart diseas e of [place] coronary artery without angina pectoris acute Essential hypertension acute Syncope and collapse acute Hyperlipidemia chronic [facility] Work Phone: Evaluation note* Diagnosis Onset Date Resolution Status Pneumonia acute Sinus drainage acute Asthma chronic SUPA (obstructive sleep apnea) chronic Asthma chronic SUPA (obstructive sleep apnea) chronic Atherosclerotic heart diseas e of [place] coronary artery without angina pectoris acute Essential hypertension acute Syncope and collapse acute Hyperlipidemia chronic [facility] Work Phone: Evaluation note* Diagnosis Onset Date Resolution Status Asthma chronic SUPA (obstructive sleep apnea) chronic Atherosclerotic heart diseas e of [place] coronary artery without angina pectoris acute Essential hypertension acute Syncope and collapse acute Hyperlipidemia chronic [id number] acute [facility] Work Phone: Evaluation note* Diagnosis Onset Date Resolution Status Asthma chronic SUPA (obstructive sleep apnea) chronic Atherosclerotic heart diseas e of [place] coronary artery without angina pectoris acute Essential hypertension acute Syncope and collapse acute Hyperlipidemia chronic [id number] acute Asthma chronic SUPA (obstructive sleep apnea) chronic Acute bronchitis with bronchospasm acute Acute respiratory insufficiency acute [id number] acute COVID-19 acute Dyspnea on exertion acute Prostate cancer acute [facility] Work Phone: Evaluation note* Diagnosis Onset Date Resolution Status Atherosclerotic heart diseas e of [place] coronary artery without angina pectoris acute Essential hypertension acute Syncope and collapse acute Hyperlipidemia chronic [id number] acute Asthma chronic SUPA (obstructive sleep apnea) chronic Acute bronchitis with bronchospasm acute Acute respiratory insufficiency acute [id number] acute COVID-19 acute Dyspnea on exertion acute Prostate cancer acute [id number] acute [facility] Work Phone: Evaluation note* Diagnosis Onset Date Resolution Status Atherosclerotic heart diseas e of [place] coronary artery without angina pectoris acute Essential hypertension acute Syncope and collapse acute Hyperlipidemia chronic [id number] acute Asthma chronic SUPA (obstructive sleep apnea) chronic Acute bronchitis with bronchospasm acute Acute respiratory insufficiency acute [id number] acute COVID-19 acute Dyspnea on exertion acute Prostate cancer acute [id number] acute Acute dyspnea acute Chronic anticoagulation acut e History of atrial fibrillation acute History of diabetes mellitus acute Pneumonia acute [facility] Work Phone: Evaluation note* Diagnosis Onset Date Resolution Status [id number] acute Asthma chronic SUPA (obstructive sleep apnea) chronic Acute bronchitis with bronchospasm acute Acute respiratory insufficiency acute [id number] acute COVID-19 acute Dyspnea on exertion acute Prostate cancer acute [id number] acute Acute dyspnea acute Chronic anticoagulation acut e History of atrial fibrillation acute History of diabetes mellitus acute Pneumonia acute [facility] Work Phone: Evaluation note* Diagnosis Onset Date Resolution Status Asthma chronic SUPA (obstructive sleep apnea) chronic Acute bronchitis with bronchospasm acute Acute respiratory insufficiency acute Dyspnea on exertion acute Chronic anticoagulation acut e History of atrial fibrillation acute History of diabetes mellitus acute Chest pain acute Diabetes acute Dyspnea acute History of coronary artery disease acute Nausea & vomiting acute [facility] Work Phone: Evaluation note* Diagnosis Onset Date Resolution Status Asthma chronic SUPA (obstructive sleep apnea) chronic Acute bronchitis with bronchospasm acute Acute respiratory insufficiency acute Dyspnea on exertion acute Chronic anticoagulation acut e History of atrial fibrillation acute History of diabetes mellitus acute Chronic anticoagulation acut e Atherosclerotic heart diseas e of [place] coronary artery without angina pectoris acute Chest pain acute Diabetes acute Dyspnea acute Essential hypertension acute History of coronary artery disease acute History of left heart catheterization (LHC) November, 2 acute Hypokalemia acute Nausea & vomiting acute NSTEMI, initial episode of care acute Atrial fibrillation with RVR chronic [facility] Work Phone: Evaluation note* Diagnosis Onset Date Resolution Status Acute bronchitis with bronchospasm acute Acute respiratory insufficiency acute [id number] acute Dyspnea on exertion acute [id number] acute Chronic anticoagulation acut e History of atrial fibrillation acute History of diabetes mellitus acute [id number] acute [id number] acute [id number] acute [id number] acute Chronic anticoagulation acut e Atherosclerotic heart diseas e of [place] coronary artery without angina pectoris acute Chest pain acute Diabetes acute Dyspnea acute Essential hypertension acute History of coronary artery disease acute History of left heart catheterization ([facility]) November, 2 acute Hypokalemia acute Nausea & vomiting acute Atrial fibrillation with RVR chronic NSTEMI, initial episode of care resolved [id number] acute Asthma chronic Dementia chronic SUPA (obstructive sleep apnea) chronic Pulmonary hypertension chron ic Atherosclerotic heart diseas e of [place] coronary artery without angina pectoris acute Fatigue acute Nonrheumatic aortic (valve) stenosis acute On amiodarone therapy acute Paroxysmal atrial fibrillation acute [facility] Work Phone: Evaluation note* Diagnosis Onset Date Resolution Status [id number] acute Chronic anticoagulation acut e History of atrial fibrillation acute History of diabetes mellitus acute [id number] acute [id number] acute [id number] acute [id number] acute Chronic anticoagulation acut e Atherosclerotic heart diseas e of [place] coronary artery without angina pectoris acute Chest pain acute Diabetes acute Dyspnea acute Essential hypertension acute History of coronary artery disease acute History of left heart catheterization ([facility]) November, 2 acute Hypokalemia acute Nausea & vomiting acute Atrial fibrillation with RVR chronic NSTEMI, initial episode of care resolved [id number] acute Asthma chronic Dementia chronic SUPA (obstructive sleep apnea) chronic Pulmonary hypertension chron ic Atherosclerotic heart diseas e of [place] coronary artery without angina pectoris acute Fatigue acute Nonrheumatic aortic (valve) stenosis acute On amiodarone therapy acute Paroxysmal atrial fibrillation acute [facility] Work Phone: Evaluation note* Diagnosis Onset Date Resolution Status [id number] acute Asthma chronic SUPA (obstructive sleep apnea) chronic Acute bronchitis with bronchospasm acute Acute respiratory insufficiency acute [id number] acute COVID-19 acute Dyspnea on exertion acute Prostate cancer acute [id number] acute Acute dyspnea acute Chronic anticoagulation acut e History of atrial fibrillation acute History of diabetes mellitus acute [id number] acute [id number] acute [id number] acute [id number] acute [facility] Work Phone: [facility] Work Phone: Hospital Discharge instructionsAmbulatory Orders* Ears, Nose and Throat Location: None Selected [facility] Work Phone: Hospital Discharge instructions Additional Instructions Implant Used?: [facility] Work Phone: Hospital Discharge instructions Additional Instructions Plenty of fluids and rest. Take the antibiotic Zithromax 1 pill a day starting tomorrow at lunch. For 4 more days. You are given your first dose which is 2 pills in the emergency department today. I spoke to your primary care physician's office. I spoke to Dr. Douglas today. Follow-up with their office as needed. Return if feeling worse. Your labs and chest x-ray look good today.[facility] Work Phone: Reason for referral (narrative)No reason for referral information availableWMemorial [facility] Work Phone: Summary Purpose Family History No Family History Records Found Relationship Condition Age at Onset Recorded Date/T bryan mother Cardiac disease Unknown Diabetes mellitus Unknown father Cardiac disease Unknown Disorder of lung Unknown brother Cardiac disease Unknown Malignant neoplasm Unknown sister Diabetes mellitus Unknown Advance Directives No Advanced Directives Records Found Advance Directive Response Recorded Date/ Time Advance Directives No December 18, 022 9:33am Living Will Yes December 21, 2021 2:30pm Power of Rn Medical Inpatient Services Yes December 21 2:30pm Advance Directive Response Recorded Date/ Time Name of Medical Power of Rn Medical Inpatient Services DAISY December 21, 2021 2:30pm Advance Directives No December 18, 2 022 9:33am Living Will Yes December 21, 2021 2:30pm Power of Rn Medical Inpatient Services Yes December 21 2:30pm Advance Directive Response Recorded Date/ Time Advance Directives No December 18 8:33am Living Will Yes December 21, 2021 1:30pm Power of Rn Medical Inpatient Services Yes December 21 1:30pm Advance Directive Response Recorded Date/ Time Advance Directives No December 18 8:33am Living Will No October 02 10:54am Power of Rn Medical Inpatient Services No October 02 10:54am Advance Directive Response Recorded Date/ Time Name of Medical Power of Rn Medical Inpatient Services Daisy Pernell October 04, 2022 5:42pm Advance Directives No December 18 8:33am Living Will Yes October 04 5:42pm Power of Rn Medical Inpatient Services Yes October 04 5:42pm Advance Directive Response Recorded Date/ Time Name of Medical Power of Rn Medical Inpatient Services Daisy Gimenez October 04, 2022 6:42pm Advance Directives No December 18 9:33am Living Will Yes October 04 6:42pm Power of Rn Medical Inpatient Services Yes October 04 6:42pm Advance Directive Response Recorded Date/ Time Advance Directives No December 18 9:33am Living Will Yes October 04 6:42pm Power of Rn Medical Inpatient Services Yes October 04 6:42pm Advance Directive Response Recorded Date/ Time Name of Medical Power of Rn Medical Inpatient Services Faye Urbano, daughter and Natasha Gimenez, March 21, 2023 10:30pm Advance Directives No December 18 9:33am Living Will Yes March 21, 2023 10:30pm Power of Rn Medical Inpatient Services Yes March 21 10:30pm Advance Directive Response Recorded Date/ Time Name of Medical Power of Rn Medical Inpatient Services July 30, 2023 7:30am Advance Directives No December 18 8:33am Living Will Yes July 30 7:30am Power of Rn Medical Inpatient Services Yes July 30, 2023 7:30am Advance Directive Response Recorded Date/ Time Name of Medical Power of Rn Medical Inpatient Services DAISY GIMENEZ September 03, 2023 11:32pm Advance Directives No December 18 8:33am Living Will Yes September 03 11:32pm Power of Rn Medical Inpatient Services Yes September 03, 2023 11:32pm Name of Medical Power of Rn Medical Inpatient Services July 30, 2023 7:30am Advance Directive Response Recorded Date/ Time Name of Medical Power of Rn Medical Inpatient Services DAISY GIMENEZ September 04, 2023 6:12am Advance Directives No December 18, 2 022 8:33am Living Will Yes September 04 6:12am Power of Rn Medical Inpatient Services Yes September 04, 2023 6:12am Name of Medical Power of Rn Medical Inpatient Services July 30, 2023 7:30am Advance Directive Response Recorded Date/ Time Name of Medical Power of Rn Medical Inpatient Services DAISY GIMENEZ September 04, 2023 6:12am Name of Medical Power of Rn Medical Inpatient Services July 30, 2023 7:30am Name of Medical Power of Rn Medical Inpatient Services daughter Faye Wells, and his . September 20, 2023 4:01pm Advance Directives No December 18, 2 022 8:33am Living Will Yes September 20, 023 4:01pm Power of Rn Medical Inpatient Services Yes September 20, 2023 4:01pm Advance Directive Response Recorded Date/ Time Name of Medical Power of Rn Medical Inpatient Services DAISY GIMENEZ September 04, 2023 6:12am Name of Medical Power of Rn Medical Inpatient Services NATASHA GIMENEZ November 11, 2023 7:52pm Advance Directives No December 18, 2 022 8:33am Living Will No November 11, 024 7:52pm Power of Rn Medical Inpatient Services Yes November 11, 2023 7:52pm Name of Medical Power of Rn Medical Inpatient Services July 30, 2023 7:30am Name of Medical Power of Rn Medical Inpatient Services daughter Faye Wells, and his . September 20, 2023 4:01pm Advance Directive Response Recorded Date/ Time Name of Medical Power of Rn Medical Inpatient Services DAISY GIMENEZ September 04, 2023 6:12am Name of Medical Power of Rn Medical Inpatient Services NATASHA GIMENEZ November 11, 2023 10:52pm Advance Directives No December 18, 2 022 8:33am Living Will Yes November 11, 024 10:52pm Power of Rn Medical Inpatient Services Yes November 11, 2023 10:52pm Name of Medical Power of Rn Medical Inpatient Services July 30, 2023 7:30am Name of Medical Power of Rn Medical Inpatient Services daughter Faye Wells, and his . September 20, 2023 4:01pm Advance Directive Response Recorded Date/ Time Name of Medical Power of Rn Medical Inpatient Services DAISY GIMENEZ September 04, 2023 7:12am Name of Medical Power of Rn Medical Inpatient Services NATASHA GIMENEZ November 11, 2023 11:52pm Name of Medical Power of Rn Medical Inpatient Services daughter Faye Wells, and his . September 20, 2023 5:01pm Advance Directives No October 10:20am Living Will Yes November 19 10:20am Power of Rn Medical Inpatient Services Yes November 19, 2023 10:20am Advance Directive Response Recorded Date/ Time Name of Medical Power of Rn Medical Inpatient Services NATASHA GIMENEZ November 11, 2023 11:52pm Name of Medical Power of Rn Medical Inpatient Services daughter Faye Wells, and his . September 20, 2023 5:01pm Advance Directives No October 10:20am Living Will Yes November 19 10:20am Power of Rn Medical Inpatient Services Yes November 19, 2023 10:20am Advance Directive Response Recorded Date/ Time Living Will Yes November 19 10:20am Do you have a Healthcare Power of Rn Medical Inpatient Services? Yes November 19, 2023 10:20am Living Will Yes May 27 11:05am Do you have a Healthcare Power of Rn Medical Inpatient Services? Yes May 27, 2024 11:05am Advance Directives No May 27, 2024 11:05am Advance Directive Response Recorded Date/ Time Living Will Yes November 19 10:20am Do you have a Healthcare Power of Rn Medical Inpatient Services? Yes November 19, 2023 10:20am Living Will Yes May 27 11:05am Do you have a Healthcare Power of Rn Medical Inpatient Services? Yes May 27, 2024 11:05am Do you have a Healthcare Power of Rn Medical Inpatient Services? Yes February 15, 2025 4:56pm Name of Medical Power of Rn Medical Inpatient Services Daisy Gimenez February 15, 2025 4:56pm Advance Directives No May 27, 2024 11:05am Hospital Course Note HNO ID: [id number] Author: Erica Greco MD Service: Hospital Medicine [...] MD Primary Serv (more content not included)... Chief Complaint and Reason for Visit Chief Complaint INFLECTRA 8MG/KILO 6 m fu SYNCOPE AND COLLAPSE/HTN SYNCOPE AND COLLAPSE/HTN SYMCOPE/AORTIC VALVE STENOSIS/CARDIOMYOPATHY INFLECTRA 8MG/KILO L. UPPER LID LESION Syncope and collapse 6 wk FU VENTRICULAR TACHYCARDIA VENTRICULAR TACHYCARDIA VENTRICULAR TACHYCARDIA update H & P SYNCOPE,AFIB HX,ANTICOAGULATION SYNCOPE,AFIB HX,ANTICOAGULATION SYNCOPE,AFIB HX,ANTICOAGULATION SYNCOPE,AFIB HX,ANTICOAGULATION SYNCOPE,AFIB HX,ANTICOAGULATION Reason for Visit Aortic stenosis LVH (left ventricular hypertrophy) Paroxysmal atrial fibrillation Syncope and collapse Essential hypertension Hyperlipidemia SUPA (obstructive sleep apnea) Pulmonary hypertension Aortic stenosis Paroxysmal atrial fibrillation Syncope and collapse Essential hypertension Hyperlipidemia Abnormal stress test Aortic stenosis Paroxysmal atrial fibrillation Syncope and collapse Essential hypertension Hyperlipidemia Abnormal stress test Aortic stenosis CAD in [place] artery Chronic anticoagulation Closed head injury Contusion of shoulder Diabetes Myoclonic jerking NSVT (nonsustained ventricular tachycardia) Paroxysmal atrial fibrillation Syncope Asymptomatic hypertensive urgency Essential hypertension Chief Complaint 6 m fu SYNCOPE AND COLLAPSE/HTN SYNCOPE AND COLLAPSE/HTN SYMCOPE/AORTIC VALVE STENOSIS/CARDIOMYOPATHY INFLECTRA 8MG/KILO L. UPPER LID LESION Syncope and collapse 6 wk FU VENTRICULAR TACHYCARDIA VENTRICULAR TACHYCARDIA VENTRICULAR TACHYCARDIA update H & P SYNCOPE,AFIB HX,ANTICOAGULATION SYNCOPE,AFIB HX,ANTICOAGULATION SYNCOPE,AFIB HX,ANTICOAGULATION SYNCOPE,AFIB HX,ANTICOAGULATION SYNCOPE,AFIB HX,ANTICOAGULATION ABN STRESS TEST, NSVT, SYNCOPE & COLLAPSE, HTN, PA Reason for Visit LVH (left ventricula r hypertrophy) Syncope and collapse Hyperlipidemia SUPA (obstructive sleep apnea) Pulmonary hypertension Syncope and collapse Hyperlipidemia Syncope and collapse Hyperlipidemia Contusion of shoulder Myoclonic jerking Syncope Chief Complaint 6 wk FU VENTRICULAR TACHYCARDIA VENTRICULAR TACHYCARDIA VENTRICULAR TACHYCARDIA update H & P SYNCOPE,AFIB HX,ANTICOAGULATION SYNCOPE,AFIB HX,ANTICOAGULATION SYNCOPE,AFIB HX,ANTICOAGULATION SYNCOPE,AFIB HX,ANTICOAGULATION SYNCOPE,AFIB HX,ANTICOAGULATION ABN STRESS TEST, NSVT, SYNCOPE & COLLAPSE, HTN, PA 6-8 WK F/U 6 M FU E ORDER Reason for Visit Syncope and collapse Hyperlipidemia Syncope and collapse Hyperlipidemia Contusion of shoulder Myoclonic jerking Syncope Atherosclerotic heart disease of [place] coronary artery without angina pectoris Fatigue Syncope and collapse Hyperlipidemia Asthma SUPA (obstructive sleep apnea) Pulmonary hypertension Chief Complaint update H & P SYNCOPE,AFIB HX,ANTICOAGULATION SYNCOPE,AFIB HX,ANTICOAGULATION SYNCOPE,AFIB HX,ANTICOAGULATION SYNCOPE,AFIB HX,ANTICOAGULATION SYNCOPE,AFIB HX,ANTICOAGULATION ABN STRESS TEST, NSVT, SYNCOPE & COLLAPSE, HTN, PA 6-8 WK F/U 6 M FU E ORDER Reason for Visit Syncope and collapse Hyperlipidemia Contusion of shoulder Myoclonic jerking Syncope Atherosclerotic heart disease of [place] coronary artery without angina pectoris Fatigue Syncope and collapse Hyperlipidemia Asthma SUPA (obstructive sleep apnea) Pulmonary hypertension Chief Complaint SYNCOPE,AFIB HX,ANTI COAGULATION SYNCOPE,AFIB HX,ANTICOAGULATION SYNCOPE,AFIB HX,ANTICOAGULATION SYNCOPE,AFIB HX,ANTICOAGULATION SYNCOPE,AFIB HX,ANTICOAGULATION ABN STRESS TEST, NSVT, SYNCOPE & COLLAPSE, HTN, PA 6-8 WK F/U 6 M FU E ORDER Reason for Visit Contusion of shoulde r Myoclonic jerking Syncope Atherosclerotic heart disease of [place] coronary artery without angina pectoris Fatigue Syncope and collapse Hyperlipidemia Asthma SUPA (obstructive sleep apnea) Pulmonary hypertension Chief Complaint 3 M FU PULMONARY HYPERTENION PULMONARY HYPERTENION INT LABS Reason for Visit Atherosclerotic hear t disease of [place] coronary artery without angina pectoris Essential hypertension Syncope and collapse Hyperlipidemia Chief Complaint 3 M FU PULMONARY HYPERTENION PULMONARY HYPERTENION INT LABS ESSENTIAL HYPERTENSION Reason for Visit Atherosclerotic hear t disease of [place] coronary artery without angina pectoris Essential hypertension Syncope and collapse Hyperlipidemia Chief Complaint PULMONARY HYPERTENIO N PULMONARY HYPERTENION INT LABS ESSENTIAL HYPERTENSION 6 M FU Reason for Visit Asthma SUPA (obstructive sleep apnea) Chief Complaint PULMONARY HYPERTENIO N PULMONARY HYPERTENION INT LABS ESSENTIAL HYPERTENSION 6 M FU 5 MO F/U EORDERS Reason for Visit Asthma SUPA (obstructive sleep apnea) Atherosclerotic heart disease of [place] coronary artery without angina pectoris Essential hypertension Fatigue Rib pain Syncope and collapse Hyperlipidemia Chief Complaint PULMONARY HYPERTENIO N PULMONARY HYPERTENION INT LABS ESSENTIAL HYPERTENSION 6 M FU 5 MO F/U EORDERS S/O- PAIN- COPY PCP RIGHT KNEE Reason for Visit Asthma SUPA (obstructive sleep apnea) Atherosclerotic heart disease of [place] coronary artery without angina pectoris Essential hypertension Fatigue Rib pain Syncope and collapse Hyperlipidemia Chief Complaint PULMONARY HYPERTENIO N PULMONARY HYPERTENION INT LABS ESSENTIAL HYPERTENSION 6 M FU 5 MO F/U [employer] S/O- PAIN- COPY PCP RIGHT KNEE GOUT FLARE/INABILITY TO AMBULATE Pain Reason for Visit Asthma SUPA (obstructive sleep apnea) Atherosclerotic heart disease of [place] coronary artery without angina pectoris Essential hypertension Fatigue Rib pain Syncope and collapse Hyperlipidemia Anticoagulant long-term use Arthralgia of foot, left Arthralgia of right knee Failure of outpatient treatment Gout flare History of total knee arthroplasty Hypokalemia Inability to walk Chief Complaint PULMONARY HYPERTENIO N PULMONARY HYPERTENION INT LABS ESSENTIAL HYPERTENSION 6 M FU 5 MO F/U [employer] S/O- PAIN- COPY PCP RIGHT KNEE GOUT FLARE/INABILITY TO AMBULATE Pain GOUT FLARE/INABILITY TO AMBULATE Reason for Visit Asthma SUPA (obstructive sleep apnea) Atherosclerotic heart disease of [place] coronary artery without angina pectoris Essential hypertension Fatigue Rib pain Syncope and collapse Hyperlipidemia Anticoagulant long-term use Arthralgia of foot, left Arthralgia of right knee Failure of outpatient treatment Gout flare History of total knee arthroplasty Hypokalemia Inability to walk Chief Complaint PULMONARY HYPERTENIO N PULMONARY HYPERTENION INT LABS ESSENTIAL HYPERTENSION 6 M FU 5 MO F/U [employer] S/O- PAIN- COPY PCP RIGHT KNEE GOUT FLARE/INABILITY TO AMBULATE Pain GOUT FLARE/INABILITY TO AMBULATE Reason for Visit Asthma SUPA (obstructive sleep apnea) Atherosclerotic heart disease of [place] coronary artery without angina pectoris Essential hypertension Fatigue Rib pain Syncope and collapse Hyperlipidemia Anticoagulant long-term use Arthralgia of foot, left Arthralgia of right knee Failure of outpatient treatment Gout flare Hypokalemia Inability to walk Chief Complaint ESSENTIAL HYPERTENSI ON 6 M FU 5 MO F/U [employer] S/O- PAIN- COPY PCP RIGHT KNEE GOUT FLARE/INABILITY TO AMBULATE Pain GOUT FLARE/INABILITY TO AMBULATE 8 wk fu PAIN- COPY PCP PAIN- COPY PCP Reason for Visit Asthma SUPA (obstructive sleep apnea) Atherosclerotic heart disease of [place] coronary artery without angina pectoris Essential hypertension Fatigue Rib pain Syncope and collapse Hyperlipidemia Anticoagulant long-term use Arthralgia of foot, left Arthralgia of right knee Failure of outpatient treatment Gout flare Hypokalemia Inability to walk Atherosclerotic heart disease of [place] coronary artery without angina pectoris Essential hypertension Hyperlipidemia Chief Complaint 5 MO F/U EORD[employer] S/O- PAIN- COPY PCP RIGHT KNEE GOUT FLARE/INABILITY TO AMBULATE Pain GOUT FLARE/INABILITY TO AMBULATE 8 wk fu PAIN- COPY PCP PAIN- COPY PCP Reason for Visit Atherosclerotic hear t disease of [place] coronary artery without angina pectoris Essential hypertension Fatigue Rib pain Syncope and collapse Hyperlipidemia Anticoagulant long-term use Arthralgia of foot, left Arthralgia of right knee Failure of outpatient treatment Gout flare Hypokalemia Inability to walk Atherosclerotic heart disease of [place] coronary artery without angina pectoris Essential hypertension Hyperlipidemia Effusion, right knee Chief Complaint PAIN- COPY PCP PAIN- COPY PCP PAIN- COPY PCP 6 M FU LEFT WRIST AND LEFT ELBOW PAIN Reason for Visit Effusion, right knee Asthma SUPA (obstructive sleep apnea) Chief Complaint PAIN- COPY PCP 6 M FU LEFT WRIST AND LEFT ELBOW PAIN Shortness of breath PNEUMONIA Pneumonia Pneumonia Pneumonia Pneumonia Pneumonia Reason for Visit Effusion, right knee Asthma SUPA (obstructive sleep apnea) Pneumonia HTN (hypertension) Chief Complaint PAIN- COPY PCP 6 M FU LEFT WRIST AND LEFT ELBOW PAIN Shortness of breath PNEUMONIA Pneumonia Pneumonia Pneumonia Pneumonia Pneumonia Hospital FU Reason for Visit Effusion, right knee Asthma SUPA (obstructive sleep apnea) Pneumonia Sinus drainage Asthma SUPA (obstructive sleep apnea) Chief Complaint PAIN- COPY PCP 6 M FU LEFT WRIST AND LEFT ELBOW PAIN Shortness of breath PNEUMONIA Pneumonia Pneumonia Pneumonia Pneumonia Pneumonia Hospital FU PSA Reason for Visit Asthma SUPA (obstructive sleep apnea) Pneumonia Sinus drainage Asthma SUPA (obstructive sleep apnea) Chief Complaint 6 M FU LEFT WRIST AND LEFT ELBOW PAIN Shortness of breath PNEUMONIA Pneumonia Pneumonia Pneumonia Pneumonia Pneumonia Hospital FU PSA Reason for Visit Asthma SUPA (obstructive sleep apnea) Pneumonia Sinus drainage Asthma SUPA (obstructive sleep apnea) Chief Complaint 6 M FU LEFT WRIST AND LEFT ELBOW PAIN Shortness of breath PNEUMONIA Pneumonia Pneumonia Pneumonia Pneumonia Pneumonia Hospital FU PSA 6 wk FU 1 Y FU PROSTATE CA PROSTATE CA Reason for Visit Asthma SUPA (obstructive sleep apnea) Pneumonia Sinus drainage Asthma SUPA (obstructive sleep apnea) Asthma SUPA (obstructive sleep apnea) Atherosclerotic heart disease of [place] coronary artery without angina pectoris Essential hypertension Syncope and collapse Hyperlipidemia Chief Complaint LEFT WRIST AND LEFT ELBOW PAIN Shortness of breath PNEUMONIA Pneumonia Pneumonia Pneumonia Pneumonia Pneumonia Hospital FU PSA 6 wk FU 1 Y FU PROSTATE CA PROSTATE CA Reason for Visit Pneumonia Sinus drainage Asthma SUPA (obstructive sleep apnea) Asthma SUPA (obstructive sleep apnea) Atherosclerotic heart disease of [place] coronary artery without angina pectoris Essential hypertension Syncope and collapse Hyperlipidemia Chief Complaint PSA 6 wk FU 1 Y FU PROSTATE CA PROSTATE CA CONSULT - PROSTATE [employer] attendant placement for radiat Reason for Visit Asthma SUPA (obstructive sleep apnea) Atherosclerotic heart disease of [place] coronary artery without angina pectoris Essential hypertension Syncope and collapse Hyperlipidemia [id number] Chief Complaint 6 wk FU 1 Y FU PROSTATE CA PROSTATE CA CONSULT - PROSTATE [employer] and [employer] attendant placement for radiat 6 M FU Malignant neoplasm of prostate . COVID 19, ACUTE BRONCHITIS W/BRONCHOSPASM & GEN Reason for Visit Asthma SUPA (obstructive sleep apnea) Atherosclerotic heart disease of [place] coronary artery without angina pectoris Essential hypertension Syncope and collapse Hyperlipidemia [id number] Asthma SUPA (obstructive sleep apnea) Acute bronchitis with bronchospasm Acute respiratory insufficiency [id number] COVID-19 Dyspnea on exertion Prostate cancer Chief Complaint 6 wk FU 1 Y FU PROSTATE CA PROSTATE CA CONSULT - PROSTATE [employer] and [employer] attendant placement for radiat 6 M FU Malignant neoplasm of prostate . COVID 19, ACUTE BRONCHITIS W/BRONCHOSPASM & GEN COVID 19, ACUTE BRONCHITIS W/BRONCHOSPASM & GEN Reason for Visit Asthma SUPA (obstructive sleep apnea) Atherosclerotic heart disease of [place] coronary artery without angina pectoris Essential hypertension Syncope and collapse Hyperlipidemia [id number] Asthma SUPA (obstructive sleep apnea) Acute bronchitis with bronchospasm Acute respiratory insufficiency [id number] COVID-19 Dyspnea on exertion Prostate cancer Chief Complaint 1 Y FU PROSTATE CA PROSTATE CA CONSULT - PROSTATE [employer] and [employer] attendant placement for radiat 6 M FU Malignant neoplasm of prostate COVID 19, ACUTE BRONCHITIS W/BRONCHOSPASM & GEN COVID 19, ACUTE BRONCHITIS W/BRONCHOSPASM & GEN OTV OTV . Reason for Visit Atherosclerotic hear t disease of [place] coronary artery without angina pectoris Essential hypertension Syncope and collapse Hyperlipidemia [id number] Asthma SUPA (obstructive sleep apnea) Acute bronchitis with bronchospasm Acute respiratory insufficiency [id number] COVID-19 Dyspnea on exertion Prostate cancer [id number] Chief Complaint 1 Y FU PROSTATE CA PROSTATE CA CONSULT - PROSTATE [employer] and [employer] attendant placement for radiat 6 M FU Malignant neoplasm of prostate COVID 19, ACUTE BRONCHITIS W/BRONCHOSPASM & GEN COVID 19, ACUTE BRONCHITIS W/BRONCHOSPASM & GEN OTV OTV . RLL PNEUMONIA, A-FIB, HX Reason for Visit Atherosclerotic hear t disease of [place] coronary artery without angina pectoris Essential hypertension Syncope and collapse Hyperlipidemia [id number] Asthma SUPA (obstructive sleep apnea) Acute bronchitis with bronchospasm Acute respiratory insufficiency [id number] COVID-19 Dyspnea on exertion Prostate cancer [id number] Acute dyspnea Chronic anticoagulation History of atrial fibrillation History of diabetes mellitus Pneumonia Chief Complaint PROSTATE CA PROSTATE CA CONSULT - PROSTATE [employer] and [employer] attendant placement for radiat 6 M FU Malignant neoplasm of prostate COVID 19, ACUTE BRONCHITIS W/BRONCHOSPASM & GEN COVID 19, ACUTE BRONCHITIS W/BRONCHOSPASM & GEN OTV OTV RLL PNEUMONIA, A-FIB, HX RLL PNEUMONIA, A-FIB, HX RLL PNEUMONIA, A-FIB, HX RLL PNEUMONIA, A-FIB, HX RLL PNEUMONIA, A-FIB, HX . 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 CHEST PAIN AND HYPOKALEMIA CHEST PAIN AND HYPOKALEMIA CHEST PAIN AND HYPOKALEMIA CHEST PAIN AND HYPOKALEMIA CHEST PAIN AND HYPOKALEMIA Reason for Visit Asthma SUPA (obstructive sleep apnea) Acute bronchitis with bronchospasm Acute respiratory insufficiency Dyspnea on exertion Chronic anticoagulation History of atrial fibrillation History of diabetes mellitus Chronic anticoagulation Atherosclerotic heart disease of [place] coronary artery without angina pectoris Chest pain Diabetes Dyspnea Essential hypertension History of coronary artery disease History of left heart catheterization (LHC) Hypokalemia Nausea & vomiting NSTEMI, initial episode of care Atrial fibrillation with RVR Chief Complaint Malignant neoplasm o f prostate COVID 19, ACUTE BRONCHITIS W/BRONCHOSPASM & GEN COVID 19, ACUTE BRONCHITIS W/BRONCHOSPASM & GEN OTV OTV RLL PNEUMONIA, A-FIB, HX RLL PNEUMONIA, A-FIB, HX RLL PNEUMONIA, A-FIB, HX RLL PNEUMONIA, A-FIB, HX RLL PNEUMONIA, A-FIB, HX RLL PNEUMONIA, A-FIB, HX OTV OTV OTV OTV Amb Documentation . CHEST PAIN AND HYPOKALEMIA CP ADMIT CHEST PAIN AND HYPOKALEMIA CHEST PAIN AND HYPOKALEMIA CHEST PAIN AND HYPOKALEMIA CHEST PAIN AND HYPOKALEMIA CHEST PAIN AND HYPOKALEMIA 1 MONTH F/U POST RT 6 M FU S/P [facility] 11/13 Reason for Visit Acute bronchitis wit h bronchospasm Acute respiratory insufficiency [id number] Dyspnea on exertion [id number] Chronic anticoagulation History of atrial fibrillation History of diabetes mellitus [id number] Chronic anticoagulation Atherosclerotic heart disease of [place] coronary artery without angina pectoris Chest pain Diabetes Dyspnea Essential hypertension History of coronary artery disease History of left heart catheterization (LHC) Hypokalemia Nausea & vomiting Atrial fibrillation with RVR NSTEMI, initial episode of care [id number] Asthma Dementia SUPA (obstructive sleep apnea) Pulmonary hypertension Atherosclerotic heart disease of [place] coronary artery without angina pectoris Fatigue Nonrheumatic aortic (valve) stenosis On amiodarone therapy Paroxysmal atrial fibrillation Chief Complaint OTV RLL PNEUMONIA, A-FIB, HX RLL PNEUMONIA, A-FIB, HX RLL PNEUMONIA, A-FIB, HX RLL PNEUMONIA, A-FIB, HX RLL PNEUMONIA, A-FIB, HX RLL PNEUMONIA, A-FIB, HX OTV OTV OTV OTV Amb Documentation . CHEST PAIN AND HYPOKALEMIA CP ADMIT CHEST PAIN AND HYPOKALEMIA CHEST PAIN AND HYPOKALEMIA CHEST PAIN AND HYPOKALEMIA CHEST PAIN AND HYPOKALEMIA CHEST PAIN AND HYPOKALEMIA 1 MONTH F/U POST RT 6 M FU S/P [facility] 11/13 PAIN- COPY PCP Reason for Visit [id number] Chronic anticoagulation History of atrial fibrillation History of diabetes mellitus [id number] Chronic anticoagulation Atherosclerotic heart disease of [place] coronary artery without angina pectoris Chest pain Diabetes Dyspnea Essential hypertension History of coronary artery disease History of left heart catheterization (LHC) Hypokalemia Nausea & vomiting Atrial fibrillation with RVR NSTEMI, initial episode of care [id number] Asthma Dementia SUPA (obstructive sleep apnea) Pulmonary hypertension Atherosclerotic heart disease of [place] coronary artery without angina pectoris Fatigue Nonrheumatic aortic (valve) stenosis On amiodarone therapy Paroxysmal atrial fibrillation Chief Complaint CONSULT - PROSTATE [employer] and [employer] attendant placement for radiat 6 M FU Malignant neoplasm of prostate COVID 19, ACUTE BRONCHITIS W/BRONCHOSPASM & GEN COVID 19, ACUTE BRONCHITIS W/BRONCHOSPASM & GEN OTV OTV RLL PNEUMONIA, A-FIB, HX RLL PNEUMONIA, A-FIB, HX RLL PNEUMONIA, A-FIB, HX RLL PNEUMONIA, A-FIB, HX RLL PNEUMONIA, A-FIB, HX RLL PNEUMONIA, A-FIB, HX OTV OTV OTV OTV . Amb Documentation Reason for Visit [id number] Asthma SUPA (obstructive sleep apnea) Acute bronchitis with bronchospasm Acute respiratory insufficiency [id number] COVID-19 Dyspnea on exertion Prostate cancer [id number] Acute dyspnea Chronic anticoagulation History of atrial fibrillation History of diabetes mellitus [id number] Chief Complaint Admit Date EORDER- PSA October 05, 2024 9: 38am 6 MONTH F/U PROSTATE, PSA PRIOR October 06, 2024 9:19am LAB AND XRAY- PNEUMONIA October 26 3:55pm 6 M FU November 17, 2024 10:09am 3 M FU November 27, 2024 8:21am HX CAD, FATIGUE December 10, 2024 6:1 2am HX CAD, FATIGUE December 10, 2024 1:4 8pm Reason for Visit Admit Date Cancer of prostate with inte rmediate recurrence risk (stage T2b-c or [place] October 06, 2024 9:19am Oral thrush November 17, 2024 10:09am Asthma November 17, 2024 10:09am SUPA (obstructive sleep apnea) October 312024 10:09am Pulmonary hypertension November 17 10:09am Fatigue November 27, 2024 8:21am History of left heart catheterization (L HC) November 27, 2024 8:21am On amiodarone therapy November 27 8:21am Paroxysmal atrial fibrillation November 27, 2024 8:21am Chief Complaint Admit Date EORDER- PSA October 05, 2024 9: 38am 6 MONTH F/U PROSTATE, PSA PRIOR October 06, 2024 9:19am LAB AND XRAY- PNEUMONIA October 26 3:55pm 6 M FU November 17, 2024 10:09am 3 M FU November 27, 2024 8:21am HX CAD, FATIGUE December 10, 2024 6:1 2am HX CAD, FATIGUE December 10, 2024 1:4 8pm PSA December 25, 2024 9:5 0am Chief Complaint Admit Date EORDER- PSA October 05, 2024 9: 38am 6 MONTH F/U PROSTATE, PSA PRIOR October 06, 2024 9:19am LAB AND XRAY- PNEUMONIA October 26 3:55pm 6 M FU November 17, 2024 10:09am 3 M FU November 27, 2024 8:21am HX CAD, FATIGUE December 10, 2024 6:1 2am HX CAD, FATIGUE December 10, 2024 1:4 8pm PSA December 25, 2024 9:5 0am CKD January 06, 2025 2:33 pm Chief Complaint Admit Date LAB AND XRAY- PNEUMONIA October 26 3:55pm 6 M FU November 17, 2024 10:09am 3 M FU November 27, 2024 8:21am HX CAD, FATIGUE December 10, 2024 6:1 2am HX CAD, FATIGUE December 10, 2024 1:4 8pm PSA December 25, 2024 9:5 0am CKD January 06, 2025 2:33 pm SOB February 15, 2025 4:31p m Reason for Visit Admit Date Oral thrush November 17, 2024 10:09am Asthma November 17, 2024 10:09am SUPA (obstructive sleep apnea) October 312024 10:09am Pulmonary hypertension November 17 10:09am Fatigue November 27, 2024 8:21am History of left heart catheterization (L HC) November 27, 2024 8:21am On amiodarone therapy November 27 8:21am Paroxysmal atrial fibrillation November 27, 2024 8:21am Additional Source Comments (unrecognized sect ion and content) No Status Records FoundNo Status Records FoundNo Status Records Found INFORMATION SOURCE (unrecogn ized section and content) DATE CREATED AUTHOR 02/24/2020 [facility] DATE CREATED AUTHOR AUTHOR'S ORGANIZ ATION 02/25/2020 [facility] DATE CREATED AUTHOR AUTHOR'S ORGANIZ ATION 02/25/2025 [facility] Goals (unrecognized section and content) Goals may be documented in a n alternate sectionGoals may be documented in an alternate sectionGoals may be documented in an alternate sectionGoals may be documented in an alternate sectionGoals may be documented in an alternate sectionGoals may be documented in an alternate sectionGoals may be documented in an alternate sectionGoals may be documented in an alternate sectionGoals may be documented in an alternate sectionGoals may be documented in an alternate sectionGoals may be documented in an alternate sectionGoals may be documented in an alternate sectionGoals may be documented in an alternate sectionGoals may be documented in an alternate sectionGoals may be documented in an alternate sectionGoals may be documented in an alternate sectionGoals may be documented in an alternate sectionGoals may be documented in an alternate sectionGoals may be documented in an alternate section Care Teams (unrecognized sec tion and content) Team Status: Active Member Role Status Dates Dr. Jayme Yang MD Family Provider Active Dr. Jayme Yang MD Primary Care Provider Active Team Status: Inactive Member Role Status Dates Dr. Jayme Yang MD Primary Care Provider, Referring Provider Active Dr. Aquiles Modi MD Attending Provider Active Team Status: Inactive Member Role Status Dates Dr. Jayme Yang MD Primary Care Provider, Referring Provider Active Dyan Chavez SCOUT SNIPER, SCOUT SNIPER-C Attending Provider Active Team Status: Active Member Role Status Dates Dr. Jayme Yang MD Primary Care Provider Active Dr. Aquiles Modi MD Referring Provider, Other Provid er Active Dr. Newton Arroyo DO Attending Provider Active Team Status: Active Member Role Status Dates Dr. Jayme Yang MD Primary Care Provider Active Dr. Iker Stratton DO Emergency Provider Active Dr. Nela Bellamy DO Attending Provider Active Team Status: Active Member Role Status Dates Dr. Jayme Yang MD Primary Care Provider Active Dr. Iker Stratton DO Emergency Provider Active Dr. Nela Bellamy DO Admit Provider, Other Provider Ac tive Dr. Boris Bojorquez MD Attending Provider, Other Provider Active Team Status: Inactive Member Role Status Dates Dr. Jayme Yang MD Primary Care Provider Active Dr. Aquiles Modi MD Attending Provider, Referring Pr ovider Active Team Status: Inactive Member Role Status Dates Dr. Jayme Yang MD Primary Care Provider Active Dyan Chavez SCOUT SNIPER, SCOUT SNIPER-C Attending Provider, Referring P rovider Active Team Status: Inactive Member Role Status Dates Dr. Jayme Yang MD Primary Care Provider Active Dr. Marycruz Yen MD Attending Provider, Referring Provider Active Team Status: Inactive Member Role Status Dates Dr. Jayme Yang MD Primary Care Provider Active Dr. Milton Mckinley MD Attending Provider, Emergency Provider Active Team Status: Inactive Member Role Status Dates Dr. Jayme Yang MD Primary Care Provider Active Dr. Iker Stratton DO Emergency Provider Active Dr. Nela Bellamy DO Admit Provider, Other Provider Ac tive Dr. Boris Bojorquez MD Attending Provider Active Team Status: Inactive Member Role Status Dates Dr. Jayme Yang MD Primary Care Provider, Referring Provider Active Faye Martinez PA, PA Attending Provider Active Team Status: Active Member Role Status Dates Dr. Jayme Yang MD Primary Care Provider Active Dr. Marycruz Yne MD Attending Provider, Referring Provider Active Team Status: Inactive Member Role Status Dates Dr. Jayme Yang MD Primary Care Provider Active Dr. Juany Bellamy DO Attending Provider, Referring P rovider Active Team Status: Inactive Member Role Status Dates Dr. Jayme Yang MD Primary Care Provider, Referring Provider Active Emerald Campos NP, SCOUT SNIPER-C Attending Provider Active Team Status: Inactive Member Role Status Dates Dr. Jayme Yang MD Primary Care Provi blank, Attending Provider, Referring Provider Active Team Status: Active Member Role Status Dates Dr. Jayme Yang MD Primary Care Provider Active Dr. James Sullivan DO Emergency Provider Active Dr. Pedro Ferreira MD Attending Provider Active Team Status: Active Member Role Status Dates Dr. Jayme Yang MD Primary Care Provider Active Dr. James Sullivan DO Emergency Provider Active Dr. Pedro Ferreira MD Admit Provider, Other Provide r Active Dr. Boris Bojorquez MD Attending Provider, Other Provider Active Team Status: Inactive Member Role Status Dates Dr. Jayme Yang MD Primary Care Provider Active Dr. James Sullivan DO Emergency Provider Active Dr. Pedro Ferreira MD Admit Provider, Other Provide r Active Dr. Boris Bojorquez MD Attending Provider Active Team Status: Inactive Member Role Status Dates Dr. Jayme Yang MD Primary Care Provider Active Dr. Surinder Larson MD Attending Provider, Referr ing Provider Active Team Status: Active Member Role Status Dates Dr. Jayme Yang MD Primary Care Provider Active Dr. Surinder Larson MD Attending Provider, Referr ing Provider Active Team Status: Inactive Member Role Status Dates Dr. Jayme Yang MD Primary Care Provider Active Dr. Keo Montemayor DO Attending Provider Active Dr. Surinder Larson MD Referring Provider Active Team Status: Active Member Role Status Dates Dr. Jayme Yang MD Primary Care Provider Active Dr. Keo Montemayor DO Attending Provider Active Team Status: Active Member Role Status Dates Dr. Jayme Yang MD Primary Care Provider Active Dr. Keo Montemayor DO Attending Provider, Referring P rovider Active Team Status: Active Member Role Status Dates Dr. Jayme Yang MD Primary Care Provider Active Dr. Mauricio Soto DO Emergency Provider Active Dr. Laureano Lucero DO Admit Provider, Attending Pr ovider Active Team Status: Active Member Role Status Dates Dr. Jayme Yang MD Primary Care Provider Active Dr. Keo Montemayor DO Attending Provider Active Dr. Surinder Larson MD Referring Provider Active Team Status: Inactive Member Role Status Dates Dr. Jayme Yang MD Primary Care Provider Active Dr. Keo Montemayor DO Attending Provider, Referring P [place] Active Team Status: Active Member Role Status Dates Dr. Jayme Yang MD Primary Care Provider Active Dr. Mauricio Soto DO Emergency Provider Active Dr. Laureano Lucero DO Admit Provider, Other Provid er Active Dr. Laureano Lima MD Attending Provider Active Team Status: Active Member Role Status Dates Dr. Jayme Yang MD Primary Care Provider Active Dr. Mauricio Soto DO Emergency Provider Active Dr. Laureano Lucero DO Admit Provider, Other Provid er Active Dr. Laureano Lima MD Attending Provider, Other Provid er Active Team Status: Inactive Member Role Status Dates Dr. Jayme Yang MD Primary Care Provider Active Dr. Mauricio Soto DO Emergency Provider Active Dr. Laureano Lucero DO Admit Provider, Other Provid er Active Dr. Laureano Lima MD Attending Provider Active Team Status: Inactive Member Role Status Dates Dr. Jayme Yang MD Primary Care Provider Active Dr. Keo Montemayor DO Attending Provider Active Team Status: Active Member Role Status Dates Dr. Jayme Yang MD Primary Care Provider Active Dr. Jonathan Lopez MD Emergency Provider Active Dr. Drake Mason DO Admit Provider, Attending Pro vider Active Team Status: Active Member Role Status Dates Dr. Jayme Yang MD Primary Care Provider Active Dr. Jonathan Lopez MD Emergency Provider Active Dr. Drake Mason DO Admit Provider, Attending Provider, Other Provider Active Team Status: Active Member Role Status Dates Dr. Jayme Yang MD Primary Care Provider Active Dr. Jonathan Lopez MD Emergency Provider Active Dr. Drake Mason DO Admit Provider, Other Provide r Active Dr. Boris Bojorquez MD Attending Provider, Other Provider Active Team Status: Inactive Member Role Status Dates Dr. Jayme Yang MD Primary Care Provider Active Dr. Jonathan Lopez MD Emergency Provider Active Dr. Drake Mason DO Admit Provider, Other Provide r Active Dr. Boris Bojorquez MD Attending Provider Active Team Status: Inactive Member Role Status Dates Dr. Jayme aYng MD Primary Care Provider Active Dr. Tadeo Cohen MD Active Dr. Keo Montemayor DO Attending Provider, Referring P benton Active Team Status: Active Member Role Status Dates Dr. Jayme Yang MD Primary Care Provider Active Dr. Ana Maria Barnhart MD Emergency Provider Active Dr. Laureano Lucero DO Admit Provider, Attending Pr tader Active Team Status: Active Member Role Status Dates Dr. Jayme Yang MD Primary Care Provider Active Dr. Keo Montemayor DO Attending Provider Active Dr. Surinder Larson MD Referring Provider Active Dr. Marycruz Yen MD Other Provider Active Team Status: Active Member Role Status Dates Dr. Jayme Yang MD Primary Care Provider Active Dr. Ana Maria Barnhart MD Emergency Provider Active Dr. Laureano Lucero DO Admit Provider , Attending Provider, Other Provider Active Team Status: Active Member Role Status Dates Dr. Jayme Yang MD Primary Care Provider Active Dr. Ana Maria Barnhart MD Emergency Provider Active Dr. Laureano Lucero DO Admit Provider, Other Provid er Active Dyan Oviedo Other Provider Active Dr. Arnaud Watkins MD Other Provider Active Dr. Laurita White MD Other Provider Active Dr. Deng Vieira MD Other Provider Active Dr. Maxine Miguel MD Other Provider Active Dr. Ronaldo Mishra MD Other Provider Active Dr. Mumtaz Elizondo MD Other Provider Active Dr. Rico Parish MD Other Provider Active Dr. Makenna Naqvi MD Other Provider Active Dr. Suzie Ashton MD Attending Provider, Other Prov ider Active Dr. Rachid Escobedo MD Other Provider Active Dr. Myrna Hendrix MD Other Provider Active Dr. Clifford Cordero MD Other Provider Active Dr. Jayme Lino MD Other Provider Active Dr. Channing Maldonado MD Other Provider Active Dr. Domenico Ordaz MD Other Provider Active Dr. Nabil Marie MD Other Provider Active Teja Jefferson SCOUT SNIPER, SCOUT SNIPER-C Other Provider Active Dyan Chavez SCOUT SNIPER, SCOUT SNIPER-C Other Provider Active Faye Martinez PA, PA Other Provider Active Dr. Js Lee , Other Provider Active Team Status: Active Member Role Status Dates Dr. Jayme Yang MD Primary Care Provider Active Dr. Clifford Cordero MD Attending Provider Activ e Team Status: Active Member Role Status Dates Dr. Jayme Yang MD Primary Care Provider Active Dr. Ana Maria Barnhart MD Emergency Provider Active Dr. Laureano Lucero , Admit Provider, Other Provid er Active Dyan Oviedo Other Provider Active Dr. Arnaud Watkins MD Other Provider Active Dr. Laurita White MD Other Provider Active Dr. Deng Vieira MD Other Provider Active Dr. Maxine Miguel MD Other Provider Active Dr. Ronaldo Mishra MD Other Provider Active Dr. Mumtaz Elizondo MD Other Provider Active Dr. Rico Parish MD Other Provider Active Dr. Makenna Naqvi MD Other Provider Active Dr. Suzie Ashton MD Other Provider Active Dr. Rachid Escobedo MD Other Provider Active Dr. Myrna Hendrix MD Other Provider Active Dr. Clifford Cordero MD Other Provider Active Dr. Jayme Lino MD Other Provider Active Dr. Channing Maldonado MD Other Provider Active Dr. Domenico Ordaz MD Other Provider Active Dr. Nabil Marie MD Other Provider Active Teja Jefferson SCOUT SNIPER, SCOUT SNIPER-C Other Provider Active Dyan Chavez SCOUT SNIPER, SCOUT SNIPER-C Other Provider Active Faye Martinez PA, PA Other Provider Active Dr. Js Lee DO Attending Provider, Other Provider Active Team Status: Active Member Role Status Dates Dr. Jayme Yang MD Primary Care Provider Active Dr. Ana Maria Barnhart MD Emergency Provider Active Dr. Laureano Lucero , Admit Provider, Other Provid er Active Dyan Oviedo Other Provider Active Dr. Arnaud Watkins MD Other Provider Active Dr. Laurita White MD Other Provider Active Dr. Deng Vieira MD Other Provider Active Dr. Maxine Miguel MD Other Provider Active Dr. Ronaldo Mishra MD Other Provider Active Dr. Mumtaz Elizondo MD Other Provider Active Dr. Rico Parish MD Other Provider Active Dr. Makenna Naqvi MD Other Provider Active Dr. Suzie Ashton MD Attending Provider, Other Prov ider Active Dr. Rachid Escobedo MD Other Provider Active Dr. Myrna Hendrix MD Other Provider Active Dr. Clifford Cordero MD Other Provider Active Dr. Jayme Lino MD Other Provider Active Dr. Channing Maldonado MD Other Provider Active Dr. Domenico Ordaz MD Other Provider Active Dr. Nabil Marie MD Other Provider Active Teja Jefferson SCOUT SNIPER, SCOUT SNIPER-C Other Provider Active Dyan Chavez SCOUT SNIPER, SCOUT SNIPER-C Other Provider Active Faye Martinez PA, PA Other Provider Active Dr. Js Lee , DO Other Provider Active Dr. Boris Bojorquez MD Other Provider Active Team Status: Inactive Member Role Status Dates Dr. Jayme Yang MD Primary Care Provider Active Dr. Ana Maria Barnhart MD Emergency Provider Active Dr. Laureano Lucero , DO Admit Provider, Other Provid er Active Dyan Oviedo Other Provider Active Dr. Arnaud Watkins MD Other Provider Active Dr. Laurita White MD Other Provider Active Dr. Deng Vieira MD Other Provider Active Dr. Maxine Miguel MD Other Provider Active Dr. Ronaldo Mishra MD Other Provider Active Dr. Mumtaz Elizondo MD Other Provider Active Dr. Rico Parish MD Other Provider Active Dr. Makenna Naqvi MD Other Provider Active Dr. Suzie Ashton MD Other Provider Active Dr. Rachid Escobedo MD Other Provider Active Dr. Myrna Hendrix MD Other Provider Active Dr. Clifford Cordero MD Other Provider Active Dr. Jayme Lino MD Other Provider Active Dr. Channing Maldonado MD Other Provider Active Dr. Domenico Ordaz MD Other Provider Active Dr. Nabil Marie MD Other Provider Active Teja Jefferson SCOUT SNIPER, SCOUT SNIPER-C Other Provider Active Dyan Chavez SCOUT SNIPER, SCOUT SNIPER-C Other Provider Active Faye Martinez PA, PA Other Provider Active Dr. Js eLe , Other Provider Active Dr. Boris Bojorquez MD Attending Provider Active Team Status: Inactive Member Role Status Dates Dr. Jayme Yang MD Primary Care Provider, Referring Provider Active Dr. Keo Montemayor DO Attending Provider Active Team Status: Active Member Role Status Dates Dr. Jayme Yang MD Primary Care Provider Active Dr. Ana Maria Barnhart MD Emergency Provider Active Dr. Laureano Lucero , Admit Provider, Other Provid er Active Dyan Oviedo Other Provider Active Dr. Arnaud Watkins MD Other Provider Active Dr. Laurita White MD Other Provider Active Dr. Deng Vieira MD Other Provider Active Dr. Maxine Miguel MD Other Provider Active Dr. Ronaldo Mishra MD Other Provider Active Dr. Mumtaz Elizondo MD Other Provider Active Dr. Rico Parish MD Other Provider Active Dr. Makenna Naqvi MD Other Provider Active Dr. Suzie Ashton MD Other Provider Active Dr. Rachid Escobedo MD Other Provider Active Dr. Myrna Hendrix MD Other Provider Active Dr. Clifford Cordero MD Other Provider Active Dr. Jayme Lion MD Other Provider Active Dr. Channing Maldonado MD Other Provider Active Dr. Domenico Ordaz MD Other Provider Active Dr. Nabil Marie MD Other Provider Active Teja Jefferson SCOUT SNIPER, SCOUT SNIPER-C Other Provider Active Dyan Chavez SCOUT SNIPER, SCOUT SNIPER-C Other Provider Active Faye Martinez PA, PA Other Provider Active Dr. Js Lee DO Other Provider Active Dr. Boris Bojorquez MD Attending Provider, Other Provider Active Team Status: Active Member Role Status Dates Dr. Jayme Yang MD Primary Care Provider Active Dr. Suzie Ashton MD Attending Provider Active Dr. Laureano Lucero DO Referring Provider Active Team Status: Inactive Member Role Status Dates Dr. Jayme Yang MD Primary Care Provider, Referring Provider Active Dr. Suzie Ashton MD Attending Provider Active Team Status: Inactive Member Role Status Dates Dr. Jayme Yang MD Primary Care Provider Active Dr. Surinder Larson MD Attending Provider Active Dr. Suzie Ashton MD Referring Provider Active Team Status: Active Member Role Status Dates Dr. Jayme Yang MD Primary Care Provider Active Team Status: Inactive Member Role Status Dates Dr. Jayme Yang MD Primary Care Provider Active Start: September 12, 2024 End: September 12, 2024 Dr. Marycruz Yen MD Attending Provider Active Start: September 12, 2024 End: September 12, 2024 Dr. Marycruz Yen MD Referring Provider Active Start: September 12, 2024 End: September 12, 2024 Team Status: Inactive Member Role Status Dates Dr. Jayme Yang MD Primary Care Provider Active Start: October 05, 2024 End: October 05, 2024 Dr. Keo Montemayor DO Attending Provider Active Start: October 05, 2024 End: October 05, 2024 Dr. Keo Montemayor DO Referring Provider Active Start: October 05, 2024 End: October 05, 2024 Team Status: Inactive Member Role Status Dates Dr. Jayme Yang MD Primary Care Provider Active Start: October 06, 2024 End: October 06, 2024 Dr. Keo Montemayor DO Attending Provider Active Start: October 06, 2024 End: October 06, 2024 Team Status: Inactive Member Role Status Dates Dr. Jayme Yang MD Primary Care Provider Active Start: October 26, 2024 End: October 26, 2024 Dr. Jayme Yang MD Attending Provider Active Start: October 26, 2024 End: October 26, 2024 Dr. Jayme Yang MD Referring Provider Active Start: October 26, 2024 End: October 26, 2024 Team Status: Inactive Member Role Status Dates Dr. Jayme Yang MD Primary Care Provider Active Start: November 17, 2024 End: November 17, 2024 Dr. Jayme Yang MD Referring Provider Active Start: November 17, 2024 End: November 17, 2024 Emerald Campos SCOUT SNIPER, SCOUT SNIPER-C Attending Provider Active Start: November 17, 2024 End: November 17, 2024 Team Status: Inactive Member Role Status Dates Dr. Jayme Yang MD Primary Care Provider Active Start: November 27, 2024 End: November 27, 2024 Dr. Jayme Yang MD Referring Provider Active Start: November 27, 2024 End: November 27, 2024 Teja Jefferson SCOUT SNIPER, SCOUT SNIPER-C Attending Provider Active S tart: November 27, 2024 End: November 27, 2024 Team Status: Inactive Member Role Status Dates Dr. Jayme Yang MD Primary Care Provider Active Start: December 10, 2024 End: December 10, 2024 Teja Jefferson SCOUT SNIPER, SCOUT SNIPER-C Attending Provider Active S tart: December 10, 2024 End: December 10, 2024 Teja Jefferson SCOUT SNIPER, SCOUT SNIPER-C Referring Provider Active S tart: December 10, 2024 End: December 10, 2024 Team Status: Active Member Role Status Dates Dr. Jayme Yang MD Primary Care Provider Active Start: December 10, 2024 Teja Jefferson SCOUT SNIPER, SCOUT SNIPER-C Referring Provider Active S tart: December 10, 2024 Teja Jefferson SCOUT SNIPER, SCOUT SNIPER-C Other Provider Active Start : December 10, 2024 Dr. Clifford Cordero MD Attending Provider Activ e Start: December 10, 2024 Team Status: Inactive Member Role Status Dates Dr. Jayme Yang MD Primary Care Provider Active Start: December 25, 2024 End: December 25, 2024 Dr. Surinder Larson MD Attending Provider Active Start: December 25, 2024 End: December 25, 2024 Dr. Surinder Larson MD Referring Provider Active Start: December 25, 2024 End: December 25, 2024 Team Status: Inactive Member Role Status Dates Dr. Jayme Yang MD Primary Care Provider Active Start: January 06, 2025 End: January 06, 2025 Dr. Juany Bellamy DO Attending Provider Active Start: January 06, 2025 End: January 06, 2025 Dr. Juany Bellamy DO Referring Provider Active Start: January 06, 2025 End: January 06, 2025 Team Status: Inactive Member Role Status Dates Dr. Jayme Yang MD Primary Care Provider Active Start: February 15, 2025 End: February 15, 2025 Dr. Jonathan Lopez MD Emergency Provider Active S tart: February 15, 2025 End: February 15, 2025 FOR RECORDS PERTAINING TO PATIENTS WHO ARE [...] BE BASED ON THE PRIMARY CLINICAL RECORDS. [facility] [email or web address] provides no warranty or guarantee of the accuracy or completeness of information in this document.
[2025-03-04 10:36] LABS: Absolute Lymphocyte Count 2.06 X10^3/uL (0.83-4.51); Absolute Neutrophil Count 1.8 X10^3/uL (2.0-7.7); Basophil# 0.04 X10^3/uL; Basophil% 0.9 % (0-1); Eosinophils% 2.2 % (0-5); Hematocrit 30.7 % (40-54); Lymphocyte # 2.06 X10^3/ul (0.83-4.51); Lymphocyte % 45.2 % (19-41); Mean Corp Hgb Conc 32.6 g/dL (32-36); Mean Corpuscular Hgb 30.3 pg (27.0-32.0); Monocyte% 13.2 % (0-10); NRBC Flagged by Analyzer 0 % (0-5); Neutrophil # 1.75 X10^3/uL (2.7-7.7); Neutrophil % 38.3 % (47-70); Platelet Count 197 K/mm3 (150-450); RBC Distribution Width CV 14.7 % (11.6-14.6); RBC Distribution Width SD 49.6 fl (35.1-43.9); White Blood Count 4.6 K/mm3 (4.4-11.0)
[2025-03-04 10:46] LABS: AST(SGOT) 40 U/L (<=37); Alanine Aminotransfer ALT/SGPT 46 U/L (<=46); Albumin, Serum 3.6 g/dL (3.4-4.8); Alkaline Phosphatase 61 U/L (40-129); Anion Gap 12 (5-15); BUN 24 mg/dL (4-19); Calcium,Total 8.9 mg/dL (7.6-11.0); Carbon Dioxide 25.2 mmol/L (21.0-32.0); Chloride 105 mmol/L (98-108); Creatinine, Serum 1.71 mg/dL (0.70-1.20); EST Glomerular Filtration Rate 40 (>60); Globulin 3.6 g/dL (2.2-4.2); Glucose 94 mg/dL (70-99); Potassium 3.7 mmol/L (3.3-5.1); Protein, Total 7.2 g/dL (5.9-8.4); Sodium Level 143 mmol/L (133-145); Total Bilirubin 0.34 mg/dL (0.00-1.30); Uric Acid 6.6 mg/dL (3.5-7.2)
== END | disposition home or self-care (01) ==
LOC: MTLAB 07:22
PROVIDERS: PCP Family Medicine; Referring Provider Internal Medicine Rheumatology; Visit Provider Internal Medicine Rheumatology
DX: M06.00 Rheumatoid arthritis without rheumatoid factor, unspecified site (principal); Z79.899 Other long term (current) drug therapy
CPT/HCPCS: 36415; 80053; 84550; 85025

== ENCOUNTER → 2025-04-03 | Outpatient (CLI) | payer MEDICARE, SELFPAY ==
--- OUTSIDE RECORDS SUMMARY | 2025-04-03 10:35 | XMS RPT_ITS | CCD ---
Author Organization [facility] CliniSymd Care Team Providers Care Record Tester Name Role Phone Anabelle Mead Unavailable Asuncion [...] Provider Dr. Jayme Lino Attending Provider Andres SCHEDULE ANNOUNCER, SCHEDULE ANNOUNCER-C Emerald Attending Provider Trey, Dr. Delacruz Primary Care Provider Trey, Dr. Delacruz Referring Provider Trey, Dr. Delacruz Primary Care Provider Yang, Dr. Delacruz Referring Provider Scott SCHEDULE ANNOUNCER, SCHEDULE ANNOUNCER-C Dyan Attending Provider Trey, Dr. Delacruz Primary Care Provider Trey, Dr. Delacruz Referring Provider Scott SCHEDULE ANNOUNCER, SCHEDULE ANNOUNCER-C Dyan Attending Provider Dr. Aquiles Modi Referring Provider Dr. Aquiles Modi Other Provider Dr. Newton Arroyo Attending Provider Yang, Dr. Delacruz Primary Care Provider Trey, Dr. Delacruz Referring Provider Scott SCHEDULE ANNOUNCER, SCHEDULE ANNOUNCER-C Dyan Attending Provider Rian, Dr. Kwan Referring Provider Rian, Dr. Kwan Other Provider Dr. Newton Arroyo Attending Provider Dr. Jayme Yang Primary Care Provider Trey, Dr. Delacruz Referring Provider Dr. Aquiles Modi Attending Provider Scott SCHEDULE ANNOUNCER, SCHEDULE ANNOUNCER-C Dyan Attending Provider Dr. Iker Stratton Emergency Provider Dr. Nela Bellamy Attending Provider Dr. Nela Bellamy Admit Provider Dr. Nela Bellamy Other Provider Dr. Boris Bojorquez Attending Provider Dr. Boris Bojorquez Other Provider Dr. Jayme Yang Primary Care Provider Dr. Jayme Yang Referring Provider Dr. Aquiles Modi Attending Provider Scott SCHEDULE ANNOUNCER, SCHEDULE ANNOUNCER-C Dyan Attending Provider Dr. Iker Stratton Emergency [...] Provider Dr. Jayme Yang Referring Provider Andres SCHEDULE ANNOUNCER, SCHEDULE ANNOUNCER-C Emerald Attending Provider Dr. James Sullivan Emergency Provider Dr. Pedro Ferreira Attending Provider Dr. Pedro Ferreira Admit Provider Dr. Pedro Ferreira Other Provider Dr. Boris Bojorquez Attending Provider Dr. Boris Bojorquez Other Provider Dr. Aquiles Modi Attending Provider Scott SCHEDULE ANNOUNCER, SCHEDULE ANNOUNCER-C Dyan Attending Provider Dr. Jayme Yang Primary Care Provider [phone] Trey, Dr. Delacruz Referring Provider Andres MILLER, SCHEDULE ANNOUNCER-C Emerald Attending Provider [phone] Dr. Jayme Yang Primary Care Provider Trey, Dr. Delacruz Referring Provider Dr. Aquiles Modi Attending Provider Scott MILLER, SCHEDULE ANNOUNCER-C Dyan Attending Provider Dr. Keo Montemayor Attending Provider [phone] Surinder Larson Referring Provider [phone] Dr. Mauricio Soto Emergency Provider Dr. Laureano [...] Provider Dr. Nabil Marie Other Provider Roof SCHEDULE ANNOUNCER, SCHEDULE ANNOUNCER-C Teja Waters Other Provider Scott SCHEDULE ANNOUNCER, SCHEDULE ANNOUNCER-C Dyan Other Provider Michelle PA, PA Faye Beckham Other Provider Dr. Js Lee Other Provider Dr. Clifford Cordero Attending Provider Dr. Js Lee Attending Provider [phone] Dr. Jayme Yang Primary Care Provider Dr. [...] Provider Dr. Nabil Marie Other Provider Roof SCHEDULE ANNOUNCER, SCHEDULE ANNOUNCER-C Teja Waters Other Provider Scott SCHEDULE ANNOUNCER, SCHEDULE ANNOUNCER-C Dyan Other Provider Michelle PA, PA Faye Beckham Other Provider Dr. Js Lee Other Provider Dr. Cliffrod Coredro Attending Provider Dr. Js Lee Attending Provider Dr. Jayme Yang Referring Provider Andres SCHEDULE ANNOUNCER, SCHEDULE ANNOUNCER-C Emerald Attending Provider Dr. Jayme Yang Primary Care Provider Dr. Keo Montemayor Attending Provider Dr. Keo Montemayor Referring Provider Lucero Dr. Tinsley Admit Provider Unavailabl e Lucero, Dr. Tinsley Other Provider Unavailabl e Trey LAUGHLIN, Dr. Delacruz Primary Care Provider Farshad LAUGHLIN, Dr. Joel Attending Provider Farshad LAUGHLIN, Dr. Joel Referring Provider [facility], Dr. Crowley Attending Provider [facility], Dr. Crowley Referring Provider Trey LAUGHLIN, Dr. Delacruz Attending Provider Trey LAUGHLIN, Dr. Delacruz Referring Provider Campos SCHEDULE ANNOUNCER-C, Emerald Attending Provider Roof SCHEDULE ANNOUNCER-C, Teja H Attending Provider Roof SCHEDULE ANNOUNCER-C, Teja H Referring Provider Roof SCHEDULE ANNOUNCER-C, Teja H Other Provider Gil LAUGHLIN, Dr. Horton Attending Provider Marsha LAUGHLIN, Dr. Surinder Rivera Attending Provider Marsha LAUGHLIN, Dr. Surinder Rivera Referring Provider Trey LAUGHLIN, Dr. Delacruz Primary Care Provider [facility], Dr. Crowley Attending Provider [facility], Dr. Crowley Referring Provider Trey LAUGHLIN, Dr. Delacruz Attending Provider Trey LAUGHLIN, Dr. Delacruz Referring Provider Campos SCHEDULE ANNOUNCER-C, Emerald Attending Provider Roof SCHEDULE ANNOUNCER-C, Teja H Attending Provider Roof SCHEDULE ANNOUNCER-C, Teja H Referring Provider Roof SCHEDULE ANNOUNCER-C, Teja H Other Provider Gil LAUGHLIN, Dr. Horton Attending Provider Marsha LAUGHLIN, Dr. Surinder Rivera Attending Provider [phone] Marsha LAUGHLIN, Dr. Surinder Rivera Referring Provider Josesito HEDRICK, Dr. Harrington Attending Provider Josesito HEDRICK, Dr. Harrington Referring Provider Trey LAUGHLIN, Dr. Delacruz Primary Care Provider Josesito HEDRICK, Dr. Harrington Attending Provider Josesito HEDRICK, Dr. Harrington Referring Provider John LAUGHLIN, Dr. Castillo Emergency Provider Trey LAUGHLIN, Dr. Delacruz Primary Care Provider Trey LAUGHLIN, Dr. Delacruz Referring Provider John LAUGHLIN, Dr. Castillo Attending Provider [phone] Farshad LAUGHLIN, Dr. Joel Attending Provider Farshad LAUGHLIN, Dr. Joel Referring Provider Marycruz Yen Attending Unavailable Yang, Jayme Primary Care Unavailable Vellanki, Marycruz Referring Unavailable Albina, Keo Referring Unavailable Keo Montemayor Attending Unavailable Yang, Jayme Primary Care Unavailable Roof SCHEDULE ANNOUNCER, Teja Waters Referring Unavailable Roof SCHEDULE ANNOUNCER, Teja Waters Attending Unavailable Yang, Jayme Primary Care Unavailable Wetumka, Usha Referring Unavailable Wetumka, Usha Attending Unavailable Yang, Jayme Primary Care Unavailable Yang, Jayme Attending Unavailable Yang, Jayme Referring Unavailable Yang, Jayme Primary Care Unavailable Yang, Jayme Attending Unavailable Yang, Jayme Primary Care Unavailable Yang, Jayme Referring Unavailable Vellanki, Marycruz Attending Unavailable Yang, Jayme Primary Care Unavailable Vellanki, Marycruz Referring Unavailable Yang, Jayme Primary Care Unavailable Campos SCHEDULE ANNOUNCER, Emerald Referring Unavailable Campos SCHEDULE ANNOUNCER, Emerald Attending Unavailable Yang, Jayme Primary Care Unavailable Jabour, Leander Referring Unavailable Jabour, Leander Attending Unavailable MarshaSurinder Referring Unavailable MarshaSurinder Attending Unavailable Yang, Jayme Primary Care Unavailable Juany Bellamy Referring Unavailable Josesito, Juany Attending Unavailable Yang, Jayme Primary Care Unavailable Vellanki, Marycruz Attending Unavailable Yang, Jayme Primary Care Unavailable Vellanki, Marycruz Referring Unavailable Yang, Jayme Attending Unavailable Yang, Jayme Primary Care Unavailable Yang, Jayme Attending Unavailable Yang, Jayme Referring Unavailable Yang, Jayme Primary Care Unavailable Yang, Jayme Referring Unavailable Campos SCHEDULE ANNOUNCER, Emerald Attending Unavailable Yang, Jayme Primary Care Unavailable Yang, Jayme Referring Unavailable Evin Sesay Attending Unavailable Yang, Jayme Primary Care Unavailable Keo Montemayor Attending Unavailable Yang, Jayme Referring Unavailable Yang, Jayme Primary Care Unavailable Yang, Jayme Attending Unavailable Yang, Jayme Primary Care Unavailable Albina, Keo Referring Unavailable Keo Montemayor Attending Unavailable Yang, Jayme Primary Care Unavailable Yang, Jayme Referring Unavailable Yang, Jayme Attending Unavailable Yang, Jayme Primary Care Unavailable Li SCHEDULE ANNOUNCER, Teja Waters Referring Unavailable Li SCHEDULE ANNOUNCER, Teja Waters Consulting Unavailable Yang, Jayme Primary Care Unavailable Clifford Cordero Attending Unavailabl e Albina, Keo Attending Unavailable Yang, Jayme Primary Care Unavailable Yang, Jayme Referring Unavailable Yang, Jayme Primary Care Unavailable Suzie Ashton Attending Unavailable Li SCHEDULE ANNOUNCER, Teja Waters Attending Unavailable Yang, Jayme Primary Care Unavailable Yang, Jayme Referring Unavailable Yang, Jayme Referring Unavailable Yang, Jayme Primary Care Unavailable Andres SCHEDULE ANNOUNCER, Emerald Attending Unavailable Juany Bellamy Referring Unavailable Juany Bellamy Attending Unavailable Yang, Jayme Primary Care Unavailable Yang, Jayme Primary Care Unavailable John, Jonathan Attending Unavailable Allergies Allergy Classification Reported Allergen(s) Allergy Type Date of Onset Reaction(s) Facility (20 sources) aspirin; Translations: [aspirin] drug allergy [address] [facility] Work Phone: (6 sources) morphine drug allergy [address] [facility] Work Phone: (20 sources) donepezil Drug Allergy 2 Swelling [facility] (20 sources) Minoxidil Drug Allergy 2 swelling [facility] (20 sources) Morphine Drug Allergy 2 UNABLE TO URINATE [facility] (1 source) Seasonal Allergies: Uncoded Allergy to substance 3 Other [facility] (1 source) donepezil Drug Allergy 5 [facility] (1 source) Morphine Drug Allergy 5 [facility] Medications Current Medications Medication Drug [...] if needed azithromycin 250 mg oral tablet (2 sources) Macrolide Antimicrobial Start: 02-15-2025 Kmigdpnidq-Ftbyyfuz-Jk rmoterol (7 sources) Corticosteroid, beta2-Adrenergic Agonist Start: [...] meal/food 0800/1700 Start: 05-25-2020 End: 02-20-2022 take [id number] tablet by mouth twice daily at mealtime Carvedilol 25 mg tablet Discontinued 25 mg PO TWICE A DAY 180 May 02, 2021 4:28pm January 26, 2022 10:10am must administer with a meal/food 0800/1700 Start: 05-25-2020 End: 02-20-2022 Start: 04-07-2020 End: 04-13-2020 dapagliflozin 5 mg oral tabl et (2 sources) Sodium-Glucose Cotransporter 2 Inhibitor Start: 02-15-2025 DULoxetine 60 mg delayed release oral capsule (20 sources) Serotonin and Norepinephrine Reuptake Inhibitor Start: 09-17-2018 End: 06-02-2019 Start: 12-12-2016 take 1 tablet by iraida th once daily CYMBALTA 60 MG CPEP One tablet by mouth daily DULOXETINE HCL [id number] Faye Monsalve RN esomeprazole 20 mg delayed r elease oral capsule (20 sources) Proton Pump Inhibitor Start: 12-11-2023 Start: 10-02-2022 End: 09-20-2023 Start: 12-21-2021 End: 09-06-2022 Start: 12-12-2016 take 1 tablet by iraida th once daily NEXIUM 20 MG CPDR One tablet by mouth daily ESOMEPRAZOLE MAGNESIUM [id number] Jayme Lino MD Start: 12-12-2016 take 1 tablet by iraida th once daily NEXIUM 20 MG CPDR One tablet by mouth daily ESOMEPRAZOLE MAGNESIUM [id number] Jayme Lino MD furosemide 40 mg oral tablet (20 sources) Loop Diuretic Start: 04-06-2024 Start: 10-04-2022 End: 05-24-2023 Start: 09-06-2021 End: 07-04-2022 Start: 08-09-2021 End: 09-06-2021 Start: 08-09-2021 End: 09-06-2021 Furosemide 40 mg tablet Disc ontinued 20 mg PO DAILY August 09, 2021 1:00am September 06, 2021 10:25am Start: 08-09-2021 End: 09-06-2021 Start: 12-27-2020 End: 08-07-2021 Furosemide 40 mg tablet Disc ontinued 20 mg PO DAILY December 27, 2020 4:25pm August 07, 2021 11:35am Start: 03-27-2020 End: 08-07-2021 Start: 03-27-2020 End: 08-07-2021 12 hr guaiFENesin 1200 mg extended release [...] levothyroxine sodium 0.025 m g oral tablet (5 sources) l-Thyroxine Start: 06-26-2024 linaclotide 0.145 mg oral ca psule (5 sources) Guanylate Cyclase-C Agonist Start: 06-26-2024 loratadine [...] Take 1 tablet by mouth once daily Tbthrwui-Wvm-Yv-Lycopen-Lute in (10 sources) Start: 09-17-2018 Pfemusfc-Rab-Cr-Lycopen-Lute in Active 1 EACH PO DAILY September 17, 2018 10:18pm Start: 09-17-2018 Gxqwytxc-Pnw-Z x-Cbhthzy-Bfxnzg Active 1 EACH PO DAILY September 17, 2018 12:00am Start: 09-17-2018 Rbtewitu-Uqy-H d-Egfykhp-Kdgapg Active 1 EACH PO DAILY September 17, 2018 1:00am Iethjnjd-Xxd-Hv-Lycopen-Lute in (Centrum Silver Men) 1 EACH tablet (4 sources) Start: 09-17-2018 take 1 tablet by mouth once daily Ejbegzlr-Pqy-Gl-Lycopen-Lutein (Centrum Silver Men) 1 EACH tablet Active 1 EACH PO DAILY September 17, 2018 1:00am Start: 09-17-2018 take 1 tablet by iraida th once daily Hsjulyuz-Xqr-Kv-Lycopen-Lutein (Centrum Silver Men) 1 EACH tablet Active 1 EACH PO DAILY September 17, 2018 12:00am Multivitamin tablet (1 source) Start: 12-11-2023 Multivitamin t ablet Active 1 {tbl} PO DAILY December 11, 2023 12:00am nystatin [id number] unt/ml oral suspension (5 sources) Polyene Antifungal Start: 11-17-2024 Start: 11-17-2024 Nystatin 100,0 00 unit/mL suspension Active 5 mL MUCOUS MEM THREE TIMES A DAY 250 November 17, 2024 1:00am swish and swallow 5 cc three times per day for 10 days Idamay-3 Fatty Acids (Fish Oil Concentrate) 1,000 mg Capsule (1 source) Start: 10-04-2022 take 1 capsule by mouth twice daily Idamay-3 Fatty Acids (Fish Oil Concentrate) 1,000 mg Capsule Active 1000 MG PO TWICE A DAY October 04, 2022 12:00am Idamay-3 Fatty Acids-Vitamin E (11 sources) Start: 03-22-2023 take 1 capsule by mouth once daily Idamay-3 Fatty Acids-Vitamin E Active 1 CAP PO DAILY March 21, 2023 11:00pm Start: 03-22-2023 take 1 capsule by mo [facility] twice daily Idamay-3 Fatty Acids-Vitamin E Active 1 CAP PO TWICE A DAY March 21, 2023 11:00pm Start: 03-22-2023 Idamay-3 Fatty Acids-Vitamin E Active CAP PO March [...] MG PO DAILY January 25, 2022 11:00pm Semaglutide (5 sources) Start: 04-06-2024 Semaglutide (O zempic) 0.25 [...] (20 sources) Dihydropyridine Calcium Channel Andrey Start: 03-26-2023 End: 11-27-2024 Start: 03-26-2023 End: 11-27-2024 Start: 03-26-2023 End: 04-26-2023 take 1 tablet by mouth once daily Amlodipine 10 mg tablet Discontinued 10 mg PO DAILY April 23, 2023 11:18am April 26, 2023 1:07pm Start: 03-26-2023 End: 11-27-2024 Start: 03-26-2023 End: 05-08-2023 Start: 12-13-2021 End: 03-26-2023 Start: 11-25-2020 End: 12-13-2021 Start: 11-25-2020 End: 12-13-2021 Start: 11-25-2020 End: 12-13-2021 take 1 tablet by mouth once daily Amlodipine 10 mg tablet Discontinued 10 mg PO DAILY May 23, 2021 4:55pm September 26, 2021 10:39am Start: 11-25-2020 End: 12-13-2021 Start: 04-18-2020 End: 05-25-2020 Start: 04-18-2020 End: 05-25-2020 Start: 04-18-2020 End: [...] tablet by mouth daily AMLODIPINE BESY-BENAZEPRIL HCL [id number] Faye Monsalve RN Start: 07-20-2013 End: 09-25-2018 [...] TABS One tablet by mouth daily ATENOLOL [id number] Jayme Lino MD balsalazide disodium 750 mg oral capsule (20 sources) Aminosalicylate Start: 09-17-2018 End: 02-08-2021 Start: 12-12-2016 take 3 tablets by mo uth twice daily BALSALAZIDE DISODIUM 750 MG CAPS Three tablets by mouth twice a day BALSALAZIDE DISODIUM [id number] Faye Monsalve RN benzonatate 100 mg oral [...] 09-20-2023 Start: 12-21-2021 [facility] Calcium Carbonate-Vitamin D3 Active 1 [...] One tablet by mouth daily CETIRIZINE HCL [id number] Jayme Lino MD chlorthalidone 50 mg oral [...] take TID; clopidogrel 75 mg oral tablet (20 sources) P2Y12 Platelet Inhibitor Start: 11-13-2023 End: 06-26-2024 cromolyn sodium 40 mg/ml ophthalmic solution (6 sources) Mast Cell Stabilizer Start: 12-12-2016 CROMOLYN SODIUM 4 % SOLN as needed CROMOLYN SODIUM [id number] Faye Monsalve RN cyclobenzaprine hydrochloride 5 mg oral tablet (12 sources) Muscle Relaxant Start: 12-12-2016 End: 12-13-2016 take 1 tablet by mouth once daily at bedtime CYCLOBENZAPRINE HCL 5 MG TABS One tablet by mouth daily @ bedtime CYCLOBENZAPRINE HCL [id number] Jayme Lino MD dexamethasone 6 mg oral tablet (14 sources) Corticosteroid Start: 09-05-2023 End: 09-20-2023 24 hr dilTIAZem hydrochloride 360 mg extended release oral capsule (20 sources) Calcium Channel Andrey Start: 06-06-2020 End: 02-08-2021 Start: 04-18-2020 End: 04-18-2020 Start: 10-06-2019 End: 04-07-2020 Start: 06-02-2019 End: 10-06-2019 Start: 10-23-2018 End: 05-28-2019 Start: 09-25-2018 End: 10-23-2018 diphenhydrAMINE hydrochloride 25 mg oral capsule (20 sources) Histamine-1 Receptor Antagonist Start: 06-24-2019 End: 09-26-2021 Idamay 9-Dqm-Ekm-Fish Oil (7 sources) Start: 12-11-2023 End: 06-26-2024 Idamay 8-Ifs-Lzx-Fish Oil (Fish Oil) 300-1,000 mg capsule Discontinued [...] mouth twice daily OMEGA-3 FATTY ACIDS CAPS [id number] Faye Monsalve RN 30 actuat fluticasone furoate 0.2 mg/actuat / vilanterol 0.025 mg/actuat dry [...] water and spit out; do not swallow gabapentin 600 mg oral table t (20 sources) Anti-epileptic Agent Start: 07-20-2013 End: 01-26-2022 Start: 07-20-2013 End: 01-26-2022 Gabapentin 600 mg tablet Dis continued 600 mg PO TWICE A DAY 0 December 23, 2021 11:30am January 26, 2022 10:10am take half a tablet (300mg) twice daily. Dose reduced o/a of myclonic jerks Start: 07-20-2013 End: 01-26-2022 Start: 07-20-2013 End: 01-26-2022 glimepiride 2 mg oral tablet (20 sources) Sulfonylurea Start: 01-22-2018 End: 06-26-2024 glycerin 330 mg/ml / phenol 15 mg/ml mucosal spray (20 sources) Non-Standardized Chemical Allergen Start: 06-24-2020 End: 09-26-2021 Start: 06-24-2020 End: 09-26-2021 Phenol-Glycerin 30 ML spray, non-aerosol Discontinued 30 mL MM EVERY 2 HOURS NEEDED as needed for Sore Throat June 24, 2020 2:13pm September 26, 2021 [...] Discontinued 100 mg PO TWICE A DAY July 14, 2021 12:24pm December 13, 2021 [...] TABS One tablet by mouth daily HYDROCHLOROTHIAZIDE [id number] Jayme Lino MD inFLIXimab 100 mg injection (6 sources) Tumor Necrosis Factor Andrey Start: 12-12-2016 take 100 mg intravenous route every two months REMICADE 100 MG SOLR IV every [address] [place] [address] [id number] Faye Monsalve RN ipratropium bromide 0.021 mg/actuat metered dose nasal spray (20 sources) Anticholinergic Start: 05-21-2023 End: 09-04-2023 Start: 05-21-2023 End: 09-04-2023 Ipratropium Barnwell 21 mcg ( 0.03 %) spray,non-aerosol Discontinued 2 NMA INTRANASAL TWICE A DAY May 21, 2023 12:00am September 04, 2023 2:52am administer into each nostril Start: 05-21-2023 End: 09-04-2023 take 1 spray(s) nasal route twice daily Ipratropium Barnwell Discontinued 2 SPRAY INTRANASAL TWICE A DAY [...] Discontinued 30 mg PO TWICE A DAY 1 October 27, 2019 5:15pm November 20, 2019 [...] 12-12-2016 take 1 tablet by iraida th twice daily METFORMIN HCL 1000 MG TABS One tablet by mouth twice daily METFORMIN HCL [id number] Faye Monsalve RN metoclopramide 10 mg oral ta blet (20 sources) Dopamine-2 Receptor Antagonist Start: 06-24-2019 End: 10-06-2019 metoprolol tartrate 50 mg or al tablet (20 sources) beta-Adrenergic Andrey Start: 05-28-2019 End: 06-02-2019 Start: 01-22-2018 End: 09-25-2018 Start: 03-22-2017 METOPROLOL TAR TRATE 50 MG TABS One pill twice a day METOPROLOL TARTRATE [id number] Teja Jefferson SCHEDULE ANNOUNCER montelukast 10 mg oral tablet (20 sources) Leukotriene Receptor Antagonist Start: 04-04-2023 End: 12-21-2024 MULTIPLE VITAMINS-MINERALS (4 sources) Start: 12-12-2016 take 1 tablet by mouth once daily [employer] SENIOR TABS One tablet by mouth daily MULTIPLE VITAMINS-MINERALS [id number] Faye Monsalve RN MULTIPLE VITAMINS-MINERALS (2 sources) Start: 12-12-2016 take 1 tablet by mouth once daily [facility] SENIOR TABS One tablet by mouth daily MULTIPLE VITAMINS-MINERALS [id number] Faye Monsalve RN Yz-Ylh-Vtabn-K1-Ly copen-Lutein (Centrum Silver Men) 1 EACH tablet (12 sources) Start: 09-17-2018 End: 09-20-2023 take 1 tablet by mouth once daily La-Czn-Ehwwg-K1-Lyc open-Lutein (Centrum Silver Men) 1 EACH tablet Discontinued 1 NMA PO DAILY September 17, 2018 1:00am September 20, 2023 3:57pm Start: 09-17-2018 take 1 tablet by iraida th once daily Cf-Zxl-Ziedb-M3-Padzfvt-Akscvi (Centrum Silver Men) 1 EACH tablet Active 1 EACH PO DAILY September 17, 2018 12:00am Start: 09-17-2018 take 1 tablet by iraida th once daily Us-Xii-Gwswd-X4-Xyouywn-Pouzlk (Centrum Silver Men) 1 EACH tablet Active 1 EACH PO DAILY September 17, 2018 1:00am nebivolol 10 mg oral tablet (8 sources) Start: 12-12-2016 End: 03-22-2017 take 1 tablet by mouth once daily BYSTOLIC 10 MG TABS One tablet by mouth daily NEBIVOLOL HCL [id number] Teja Jefferson NP Idamay-3 Fatty Acids (20 sources) Start: 10-04-2022 End: 04-04-2023 take 1000 mg by mouth twice daily Idamay-3 Fatty Acids Discontinued 1000 MG PO TWICE A DAY October 04, 2022 12:00am April 04, 2023 7:12am Start: 10-04-2022 End: 04-04-2023 take 1000 mg by mouth twice daily Idamay-3 Fatty Acids Discontinued 1000 MG PO TWICE A DAY October 04, 2022 1:00am April 04, 2023 8:12am Start: 10-04-2022 take 1000 mg by mout h twice daily Idamay-3 Fatty Acids Active 1000 MG PO TWICE A DAY October 04, 2022 1:00am Start: 10-04-2022 take 1000 mg by mout h twice daily Idamay-3 Fatty Acids Active 1000 MG PO TWICE A DAY October 04, 2022 12:00am Start: 12-13-2021 take 1000 mg by mout h twice daily Idamay-3 Fatty Acids Active 1000 MG PO TWICE A DAY December 13, 2021 9:13am Start: 12-13-2021 take 1000 mg by mout h twice daily Idamay-3 Fatty Acids Active 1000 MG PO TWICE A DAY December 13, 2021 10:13am Start: 08-09-2021 End: 12-13-2021 take 1000 mg by mouth once daily Idamay-3 Fatty Acids Discontinued 1000 MG PO DAILY August 09, 2021 1:34pm December 13, 2021 10:14am Start: 08-09-2021 End: 12-13-2021 take 1000 mg by mouth once daily Idamay-3 Fatty Acids Discontinued 1000 MG PO DAILY August 09, 2021 12:00am December 13, 2021 9:14am Start: 08-09-2021 End: 12-13-2021 take 1000 mg by mouth once daily Idamay-3 Fatty Acids Discontinued 1000 MG PO DAILY August 09, 2021 1:00am December 13, 2021 10:14am Idamay-3 Fatty Acids 1,000 mg Capsule (1 source) Start: 10-04-2022 End: 04-04-2023 take 1 capsule by mouth twice daily Idamay-3 Fatty Acids 1,000 mg Capsule Discontinued 1000 mg PO TWICE A DAY October 04, 2022 1:00am April 04, 2023 8:12am Idamay-3 Fatty Acids Capsule (1 source) Start: 08-09-2021 End: 12-13-2021 take 1 capsule by mouth once daily Idamay-3 Fatty Acids Capsule Discontinued 1000 mg PO DAILY August 09, 2021 1:00am December 13, 2021 10:14am Idamay-3 Fatty Acids-Fish Oil (20 sources) Start: 09-17-2018 End: 10-23-2018 take 1000 mg by mouth once daily Idamay-3 Fatty Acids-Fish Oil Discontinued 1000 MG PO DAILY September 17, 2018 10:18pm October 23, 2018 12:40pm Start: 09-17-2018 End: 10-23-2018 take 1000 mg by mouth once daily Idamay-3 Fatty Acids-Fish Oil Discontinued 1000 MG PO DAILY September 17, 2018 12:00am October 23, 2018 11:40am Start: 09-17-2018 End: 10-23-2018 take 1000 mg by mouth once daily Idamay-3 Fatty Acids-Fish Oil Discontinued 1000 MG PO DAILY September 17, 2018 1:00am October 23, 2018 12:40pm Idamay-3 Fatty Acids-Fish Oil 1 EACH capsule (1 source) Start: 09-17-2018 End: 10-23-2018 take 1 capsule by mouth once daily Idamay-3 Fatty Acids-Fish Oil 1 EACH capsule Discontinued 1000 mg PO DAILY September 17, 2018 1:00am October 23, 2018 12:40pm Idamay-3 Fatty Acids-Vitamin E 1,000 mg Capsule (1 source) Start: 03-22-2023 End: 09-20-2023 Idamay-3 Fatty Acids-Vitamin E 1,000 mg Capsule Discontinued 1 NMA PO DAILY March 22, 2023 12:00am September 20, 2023 3:57pm omeprazole 20 mg delayed release oral capsule (6 sources) Proton Pump Inhibitor Start: 12-12-2016 take 1 tablet by mouth once daily OMEPRAZOLE 20 MG CPDR One tablet by mouth daily OMEPRAZOLE [id number] Faye Monsalve RN phenazopyridine hydrochloride 100 mg oral tablet (9 sources) Start: 11-08-2023 End: 12-11-2023 polyethylene glycol 3350 69288 mg powder for oral solution (7 sources) Osmotic Laxative Start: 11-19-2023 End: 06-26-2024 [...] Schedule details. QUEtiapine 50 mg oral tablet (20 sources) Atypical Antipsychotic Start: 11-11-2023 End: 11-19-2023 Start: 11-11-2023 End: 11-19-2023 Quetiapine 50 mg tablet Disc ontinued 50 mg PO November 11, 2023 1:00am November 19, 2023 9:56am Start: 11-11-2023 End: 11-19-2023 Start: 09-20-2023 End: 11-19-2023 12 hr ranolazine 500 mg exte nded release oral tablet (20 sources) Anti-anginal Start: 11-13-2023 End: 06-26-2024 rosuvastatin calcium 20 mg o ral tablet (20 sources) HMG-CoA Reductase Inhibitor Start: 08-10-2020 End: 07-29-2024 Start: 08-10-2020 End: 07-29-2024 Start: 08-10-2020 End: 07-29-2024 Start: 06-02-2019 End: 07-13-2020 Start: 06-02-2019 End: 07-13-2020 simvastatin 80 mg oral table t (20 [...] One half tablet by mouth daily SIMVASTATIN [id number] Jayme Lino MD spacer (20 sources) Start: 08-07-2021 End: 08-07-2021 spacer Discontinued 0 .ROUTE .MEDSUPPLY August 07, 2021 11:48am August 07, 2021 11:54am As directed Start: 08-07-2021 End: 08-07-2021 spacer Discontinued 0 .ROUTE .MEDSUPPLY August 07, 2021 12:00am August 07, 2021 10:54am As directed Start: 08-07-2021 End: 08-07-2021 spacer Discontinued 0 .ROUTE .MEDSUPPLY 1 August 07, 2021 1:00am August 07, 2021 11:54am As directed traMADol hydrochloride 50 mg oral tablet (20 sources) Opioid Agonist Start: 03-21-2023 End: 09-04-2023 triamcinolone acetonide 0.05 5 mg/actuat metered dose nasal spray (19 sources) Corticosteroid Start: 05-21-2023 End: 09-20-2023 Start: [...] bronchitis, unspecified] 12-28-2021 Episodic Acute myocardial infarction (11 sources) Myocardial infarction; Translations: [Non-ST elevation (NSTEMI) [...] Chronic Chronic obstructive pulmonary disease and bronchiectasis (2 sources) Bronchitis; Translations: [Bronchitis, not specified as acute or chronic] 02-15-2025 Episodic Conduction disorders (8 sources) Sinoatrial block; 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] Onset: 12-12-2016 12-12-2016 Chronic Coronary atherosclerosis and other heart disease (20 sources) Coronary arteriosclerosis; Translations: [Atherosclerotic heart disease of [place] coronary artery without angina pectoris] Onset: 12-21-2024 [...] 12-12-2016 Chronic Genitourinary symptoms and ill-defined conditions (9 sources) Dysuria; Translations: [Dysuria] 11-11-2023 Episodic Gout [...] sources) Fatigue; Translations: [Other fatigue] Episodic Mycoses (10 sources) Candidiasis of mouth; Translations: [Candidal stomatitis] 11-17-2024 Episodic Nausea and vomiting (13 sources) Nausea and vomiting; Translations: [Nausea with [...] sources) Long-term current use of anticoagulant; Translations: [terminal carman (current) use of anticoagulants] 10-04-2022 Episodic Other aftercare (17 sources) [facility] (current) use of anticoagulants; Translations: [Long-term (current) use of anticoagulants] Episodic Other aftercare (12 sources) Drug therapy finding; Translations: [Other oil heaterman (current) drug therapy] 12-11-2023 Episodic Other aftercare (4 sources) Other oil heaterman (current) drug therapy; Translations: [Long-term (current) use [...] of hypertension] 08-07-2022 Episodic Other circulatory disease (12 sources) H/O: atrial fibrillation; Translations: [Personal history of other diseases of the circulatory system] 09-20-2023 Episodic Other circulatory disease (11 sources) Personal history of other diseases of the circulatory system; Translations: [Personal history of other diseases of circulatory system] 09-20-2023 Episodic Other circulatory disease (9 sources) H/O: heart disorder; Translations: [Personal history [...] knee] 10-10-2022 Episodic Other connective tissue disease (17 sources) Prepatellar bursitis of left knee; Translations: [...] pain, unspecified] Episodic Other lower respiratory disease (16 sources) Dyspnea on exertion; Translations: [Other forms of dyspnea] 09-04-2023 Episodic Other lower respiratory disease (16 sources) Respiratory insufficiency; Translations: [Other abnormalities of [...] Chronic Other nutritional; endocrine; and metabolic disorders (12 sources) H/O: diabetes mellitus; Translations: [Personal history [...] (2 sources) Rheumatoid arthritis without rheumatoid factor, unspecified site; Translations: [Rheumatoid arthritis without rheumatoid factor, multiple sites] Onset: 10-13-2024 Chronic Septicemia (except in labor) (20 sources) [...] around 70% with the mid RCA occluded, HOSPICE PHYSICIAN Unclassified (6 sources) Family history of alcoholism; Translations: [Family history of alcohol abuse and dependence] 12-12-2016 Episodic Results Test Name Value Interpretation Reference Range Facility Absolute lymphocyte countOrd ered By: Marycruz Yen on 03-04-2025 Lymphocytes Auto (Unsp spec) [#/Vol] 2.06 10*3/uL 0.83-4.51 [facility] Anion gap in Serum or Plasma Ordered By: Marycruz Yen on 03-04-2025 Anion gap [Moles/Vol] 12 mmol/L 5-15 [facility] Automated lymphocyte count a s percentage of total leukocytesOrdered By: Marycruz Yen on 03-04-2025 Lymphocytes/100 WBC Auto (Unsp spec) 45.2 % High 19-41 [facility] BUN/creatinine ratioOrdered By: Marycruz Yen on 03-04-2025 Urea nitrogen/Creatinine [Mass ratio] 14.0 mg/mg 10-20 [facility] Basophil percentageOrdered B y: Marycruz Yen on 03-04-2025 Basophils/100 WBC (Bld) 0.9 % 0-1 [facility] Bilirubin, totalOrdered By: Marycruz Yen on 03-04-2025 Bilirubin [Mass/Vol] 0.34 mg/dL 0.00-1.30 [facility] Carbon dioxide, total [Moles /volume] in Central venous bloodOrdered By: Marycruz Yen on 03-04-2025 CO2 [Moles/Vol] 25.2 mmol/L 21.0-32.0 [facility] Chloride assayOrdered By: Adry Yen on 03-04-2025 Chloride [Moles/Vol] 105 mmol/L 98-108 [facility] Eosinophil percentageOrdered By: Marycruz Yen on 03-04-2025 Eosinophils/100 WBC (Bld) 2.2 % 0-5 [facility] Erythrocyte distribution wid th ratioOrdered By: Marycruz Yen on 03-04-2025 Erythrocyte distribution width (RBC) [Ratio] 14.7 % High 11.6-14.6 [facility] Erythrocyte distribution wid th standard deviationOrdered By: Marycruz Yen on 03-04-2025 Erythrocyte distribution width (RBC) [Ratio] 49.6 fl High 35.1-43.9 [facility] Glomerular filtration rate ( GFR) estimation/1.73 sq m using serum, plasma, or whole bOrdered By: Marycruz Yen on 03-04-2025 GFR/1.73 sq M.predicted among non-blacks MDRD (S/P/Bld) [Vol rate/Area] 40 mL/min/{1.73_m2} Low >60 [facility] Hematocrit Auto (Bld) [Volum e fraction]Ordered By: Marycruzjulisa Yen on 03-04-2025 Hematocrit (Bld) [Volume fraction] 30.7 % Low 40-54 [facility] Hemoglobin measurementOrdere d By: Marycruz Yen on 03-04-2025 Hemoglobin (Bld) [Mass/Vol] 10.0 g/dL Low 13.0-16.5 [facility] Immature granulocytes/100 WB C Auto (Bld)Ordered By: Marycruz Yen on 03-04-2025 Immature granulocytes/100 WBC (Bld) 0.200 % 0.0-0.9 [facility] MCV (mean corpuscular volume ) determinationOrdered By: Marycruz Yen 03-04-2025 MCV (RBC) [Entitic vol] 93.0 fL 80-94 [facility] Mean corpuscular hemoglobin (MCH) determinationOrdered By: Marycruzjulisa Yen 03-04-2025 MCH (RBC) [Entitic mass] 30.3 pg 27.0-32.0 [facility] Monocyte percentageOrdered B y: Marycruz Yen on 03-04-2025 Monocytes/100 WBC (Bld) 13.2 % High 0-10 [facility] Neutrophil percentageOrdered By: Marycruz Yen on 03-04-2025 Neutrophils/100 WBC (Bld) 38.3 % Low 47-70 [facility] No Panel InformationOrdered By: Marycruz Yen on 03-04-2025 40 U/L High <38 [facility] Platelet countOrdered By: Adry Yen on 03-04-2025 Platelets (Bld) [#/Vol] 197 10*3/uL 150-450 [facility] Potassium measurement (mass/ volume)Ordered By: Marycruz Yen on 03-04-2025 Potassium (Unsp spec) [Mass/Vol] 3.7 mmol/L 3.3-5.1 [facility] RBC Auto (Bld) [#/Vol]Ordere d By: Marycruz Yen on 03-04-2025 RBC (Bld) [#/Vol] 3.30 10*6/uL Low 4.6-6.2 [facility] Serum creatinine measurement (mass/volume)Ordered By: Marycruz Yen on 03-04-2025 Creatinine [Mass/Vol] 1.71 mg/dL High 0.70-1.20 [facility] Serum globulin measurementOr dered By: Marycruz Yen on 03-04-2025 Globulin (S) [Mass/Vol] 3.6 g/dL 2.2-4.2 [facility] Serum glucose measurement (m ass/volume)Ordered By: Marycruz Yen on 03-04-2025 Glucose [Mass/Vol] 94 mg/dL 70-99 [facility] Serum or plasma alanine min otransferase (ALT) measurementOrdered By: Marycruz Yen on 03-04-2025 ALT [Catalytic activity/Vol] 46 U/L <47 [facility] Serum or plasma albumin amanda urement (mass/volume)Ordered By: Marycruz Yen on 03-04-2025 Albumin [Mass/Vol] 3.6 g/dL 3.4-4.8 [facility] Serum or plasma albumin/glob ulin mass ratioOrdered By: Marycruz Yen on 03-04-2025 Albumin/Globulin [Mass ratio] 1.0 {ratio} 0.9-2.4 [facility] Serum or plasma alkaline db sphatase measurementOrdered By: Marycruz Yen on 03-04-2025 ALP [Catalytic activity/Vol] 61 U/L 40-129 [facility] Serum or plasma calcium amanda urement (mass/volume)Ordered By: Marycruz Yen on 03-04-2025 Calcium [Mass/Vol] 8.9 mg/dL 7.6-11.0 [facility] Serum or plasma urea nitroge n measurement (mass/volume)Ordered By: Marycruz Yen on 03-04-2025 Urea nitrogen [Mass/Vol] 24 mg/dL High 4-19 [facility] Serum or plasma uric acid me asurement (mass/volume)Ordered By: Marycruz Yen on 03-04-2025 Urate [Mass/Vol] 6.6 mg/dL 3.5-7.2 [facility] Sodium levelOrdered By: Anival Yen on 03-04-2025 Sodium [Moles/Vol] 143 mmol/L 133-145 [facility] Total proteinOrdered By: Jamir Yen on 03-04-2025 Protein [Mass/Vol] 7.2 g/dL 5.9-8.4 [facility] White blood cell (WBC) count Ordered By: Marycruz Yen on 03-04-2025 WBC (Bld) [#/Vol] 4.6 10*3/uL 4.4-11.0 [facility] Absolute lymphocyte countOrd ered By: Jonathan Lopez on 02-15-2025 Lymphocytes Auto (Unsp spec) [#/Vol] 1.69 10*3/uL 0.83-4.51 [facility] Anion gap in Serum or Plasma Ordered By: Jonathan Lopez on 02-15-2025 Anion gap [Moles/Vol] 12 mmol/L 5-15 [facility] Automated lymphocyte count a s percentage of total leukocytesOrdered By: Jonathan Lopez on 02-15-2025 Lymphocytes/100 WBC Auto (Unsp spec) 22.7 % - [facility] BUN/creatinine ratioOrdered By: Jonathan Lopez on 02-15-2025 Urea nitrogen/Creatinine [Mass ratio] 13.5 mg/mg 10-20 [facility] Basophil percentageOrdered B y: Jonathan Lopez on 02-15-2025 Basophils/100 WBC (Bld) 0.3 % 0-1 [facility] Carbon dioxide, total [Moles /volume] in Central venous bloodOrdered By: Jonathan Lopez on 02-15-2025 CO2 [Moles/Vol] 23.1 mmol/L 21.0-32.0 [facility] Chloride assayOrdered By: Rodger Lopez on 02-15-2025 Chloride [Moles/Vol] 102 mmol/L 98-108 [facility] Eosinophil percentageOrdered By: Jonathan Lopez on 02-15-2025 Eosinophils/100 WBC (Bld) 0.8 % 0-5 [facility] Erythrocyte distribution wid th ratioOrdered By: Jonathan Lopez on 02-15-2025 Erythrocyte distribution width (RBC) [Ratio] 14.1 % 11.6-14.6 [facility] Erythrocyte distribution wid th standard deviationOrdered By: Jonathan Lopez on 02-15-2025 Erythrocyte distribution width (RBC) [Ratio] 47.8 fl High 35.1-43.9 [facility] Glomerular filtration rate ( GFR) estimation/1.73 sq m using serum, plasma, or whole bOrdered By: Jonathan Lopez on 02-15-2025 GFR/1.73 sq M.predicted among non-blacks MDRD (S/P/Bld) [Vol rate/Area] 41 mL/min/{1.73_m2} Low >60 [facility] Hematocrit Auto (Bld) [Volum e fraction]Ordered By: Jonathan Lopez on 02-15-2025 Hematocrit (Bld) [Volume fraction] 29.3 % Low 40-54 [facility] Hemoglobin measurementOrdere d By: Jonathan Lopez on 02-15-2025 Hemoglobin (Bld) [Mass/Vol] 9.9 g/dL Low 13.0-16.5 [facility] Immature granulocytes/100 WB C Auto (Bld)Ordered By: Jonathan Lopez on 02-15-2025 Immature granulocytes/100 WBC (Bld) 0.300 % 0.0-0.9 [facility] Influenza virus A and B and SARS-CoV-2 (COVID-19) and Respiratory syncytial virus RNAOrdered By: Jonathan Lopez on 02-15-2025 SARS-CoV-2 (COVID-19) RNA IRINA+probe Ql (Unsp spec) [facility] MCV (mean corpuscular volume ) determinationOrdered By: Jonathan Lopez on 02-15-2025 MCV (RBC) [Entitic vol] 92.1 fL 80-94 [facility] Mean corpuscular hemoglobin (MCH) determinationOrdered By: Jonathan Lopez on 02-15-2025 MCH (RBC) [Entitic mass] 31.1 pg 27.0-32.0 [facility] Monocyte percentageOrdered B y: Jonathan Lopez on 02-15-2025 Monocytes/100 WBC (Bld) 10.9 % High 0-10 [facility] Neutrophil percentageOrdered By: Jonathan Lopez on 02-15-2025 Neutrophils/100 WBC (Bld) 65.0 % 47-70 [facility] Platelet countOrdered By: Rodger Lopez on 02-15-2025 Platelets (Bld) [#/Vol] 185 10*3/uL 150-450 [facility] Potassium measurement (mass/ volume)Ordered By: Jonathan Lopez on 02-15-2025 Potassium (Unsp spec) [Mass/Vol] 4.0 mmol/L 3.3-5.1 [facility] RBC Auto (Bld) [#/Vol]Ordere d By: Jonathan Lopez on 02-15-2025 RBC (Bld) [#/Vol] 3.18 10*6/uL Low 4.6-6.2 [facility] Serum creatinine measurement (mass/volume)Ordered By: Jonathan Lopez on 02-15-2025 Creatinine [Mass/Vol] 1.69 mg/dL High 0.70-1.20 [facility] Serum glucose measurement (m ass/volume)Ordered By: Jonathan Lopez on 02-15-2025 Glucose [Mass/Vol] 154 mg/dL High 70-99 [facility] Serum or plasma calcium amanda urement (mass/volume)Ordered By: Jonathan Lopez on 02-15-2025 Calcium [Mass/Vol] 8.7 mg/dL 7.6-11.0 [facility] Serum or plasma urea nitroge n measurement (mass/volume)Ordered By: Jonathan Lopez on 02-15-2025 Urea nitrogen [Mass/Vol] 23 mg/dL High 4-19 [facility] Sodium levelOrdered By: Jonathan Lopez on 02-15-2025 Sodium [Moles/Vol] 137 mmol/L 133-145 [facility] White blood cell (WBC) count Ordered By: Jonathan Lopez on 02-15-2025 WBC (Bld) [#/Vol] 7.4 10*3/uL 4.4-11.0 [facility] Anion gap in Serum or Plasma Ordered By: Juany Bellamy on 01-06-2025 Anion gap [Moles/Vol] 11 mmol/L 5-15 [facility] BUN/creatinine ratioOrdered By: Juany Bellamy on 01-06-2025 Urea nitrogen/Creatinine [Mass ratio] 12.0 mg/mg 10-20 [facility] Carbon dioxide, total [Moles /volume] in Central venous bloodOrdered By: Jauny Bellamy on 01-06-2025 CO2 [Moles/Vol] 23.3 mmol/L 21.0-32.0 [facility] Chloride assayOrdered By: Michael Bellamy on 01-06-2025 Chloride [Moles/Vol] 106 mmol/L 98-108 [facility] Creatinine Unsp time (U) [Ma ss/Vol]Ordered By: Juany Bellamy on 01-06-2025 Creatinine (U) [Mass/Vol] 52.20 mg/dL 39.00-259. 00 [facility] Erythrocyte distribution wid th (RBC) [Ratio]Ordered By: Juany Bellamy on 01-06-2025 Erythrocyte distribution width (RBC) [Entitic vol] 54.2 fL High 35.1-43.9 [facility] Erythrocyte distribution wid th ratioOrdered By: Juany Bellamy on 01-06-2025 Erythrocyte distribution width (RBC) [Ratio] 15.5 % High 11.6-14.6 [facility] Erythrocyte distribution wid th standard deviationOrdered By: Juany Bellamy on 01-06-2025 Erythrocyte distribution width (RBC) [Ratio] 54.2 fl High 35.1-43.9 [facility] GFR/1.73 sq M.predicted ida g non-blacks MDRD (S/P/Bld) [Vol rate/Area]Ordered By: Juany Bellamy on 01-06-2025 Estimated GFR (MDRD) Non-Af Amer 39 Low >60 [facility] Comment on above: mL/min/1.73m2 CKD-EP I Creatinine Equation (2020) Glomerular filtration rate ( GFR) estimation/1.73 sq m using serum, plasma, or whole bOrdered By: Juany Bellamy on 01-06-2025 GFR/1.73 sq M.predicted among non-blacks MDRD (S/P/Bld) [Vol rate/Area] 39 mL/min/{1.73_m2} Low >60 [facility] Hematocrit Auto (Bld) [Volum e fraction]Ordered By: Juany Bellamy on 01-06-2025 Hematocrit (Bld) [Volume fraction] 28.2 % Low 40-54 [facility] Hemoglobin measurementOrdere d By: Juany Bellamy on 01-06-2025 Hemoglobin (Bld) [Mass/Vol] 9.3 g/dL Low 13.0-16.5 [facility] MCV (mean corpuscular volume ) determinationOrdered By: Juany Bellamy on 01-06-2025 MCV (RBC) [Entitic vol] 94.3 fL High 80-94 [facility] Mean corpuscular hemoglobin (MCH) determinationOrdered By: Juany Bellamy on 01-06-2025 MCH (RBC) [Entitic mass] 31.1 pg 27.0-32.0 [facility] Mean corpuscular hemoglobin concentration (MCHC) determinationOrdered By: Juany Bellamy on 01-06-2025 MCHC (RBC) [Mass/Vol] 33.0 g/dL 32-36 [facility] Mean platelet volume determi nationOrdered By: Juany Bellamy on 01-06-2025 Platelet mean volume (Bld) [Entitic vol] 11.5 fL 6.2-12.0 [facility] PTH intactOrdered By: Henrique Bellamy on 01-06-2025 Parathyroid Hormone (Intact) 29 pg/mL 11-61 [facility] Platelet countOrdered By: Michael Bellamy on 01-06-2025 Platelets (Bld) [#/Vol] 146 10*3/uL Low 150-450 [facility] Potassium (Unsp spec) [Mass/ Vol]Ordered By: Juany Bellamy on 01-06-2025 Potassium [Moles/Vol] 3.7 mmol/L 3.3-5.1 [facility] Potassium measurement (mass/ volume)Ordered By: Juany Bellamy on 01-06-2025 Potassium (Unsp spec) [Mass/Vol] 3.7 mmol/L 3.3-5.1 [facility] Protein/Creatinine (U) [Mass ratio]Ordered By: Juany Bellamy on 01-06-2025 Urine Protein/Creatinine Ratio 154 mg/g CRE 0-200 [facility] RBC Auto (Bld) [#/Vol]Ordere d By: Juany Bellamy on 01-06-2025 RBC (Bld) [#/Vol] 2.99 10*6/uL Low 4.6-6.2 [facility] Random urine creatinine amanda urement (mass/volume)Ordered By: Juany Bellamy on 01-06-2025 Creatinine Unsp time (U) [Mass/Vol] 52.20 mg/dL 39.00-259. 00 [facility] Serum creatinine measurement (mass/volume)Ordered By: Juany Bellamy on 01-06-2025 Creatinine [Mass/Vol] 1.74 mg/dL High 0.70-1.20 [facility] Serum glucose measurement (m ass/volume)Ordered By: Juany Belalmy on 01-06-2025 Glucose [Mass/Vol] 110 mg/dL High 70-99 [facility] Serum or plasma albumin amanda urement (mass/volume)Ordered By: Juany Bellamy on 01-06-2025 Albumin [Mass/Vol] 3.7 g/dL 3.4-4.8 [facility] Serum or plasma calcium amanda urement (mass/volume)Ordered By: Juany Bellamy on 01-06-2025 Calcium [Mass/Vol] 8.8 mg/dL 7.6-11.0 [facility] Serum or plasma urea nitroge n measurement (mass/volume)Ordered By: Juany Bellamy on 01-06-2025 Urea nitrogen [Mass/Vol] 21 mg/dL High 4-19 [facility] Serum phosphorus measurement Ordered By: Juany Bellamy on 01-06-2025 Phosphorus Level 3.4 mg/dL 2.7-4.5 [facility] Sodium levelOrdered By: Brian Bellamy on 01-06-2025 Sodium [Moles/Vol] 140 mmol/L 133-145 [facility] Urine protein measurement (m ass/volume)Ordered By: Juany Bellamy on 01-06-2025 Protein (U) [Mass/Vol] 8.0 mg/dL 0.0-12.0 [facility] Urine protein/creatinine mas s ratioOrdered By: Juany Bellamy on 01-06-2025 Protein/Creatinine (U) [Mass ratio] 154 mg/g CRE 0-200 [facility] White blood cell (WBC) count Ordered By: Juany Bellamy on 01-06-2025 WBC (Bld) [#/Vol] 7.3 10*3/uL 4.4-11.0 [facility] Diagnostic total prostate sp ecific antigen (PSA) measurementOrdered By: Surinder Larson on 12-25-2024 Prostate Specific Antigen Total 0.06 ng/mL 0.00-4.00 [facility] Comment on above: This test was [...] specific antigen (PSA) measurement 0.06 ng/mL 0.00-4.00 [facility] Cardiovascular stress test r eportOrdered By: Clifford Cordero on 12-10-2024 Study report [facility] Work Phone: [phone] Absolute lymphocyte countOrd ered By: Jayme Yang on 10-26-2024 Lymphocytes Auto (Unsp spec) [#/Vol] 1.20 10*3/uL 0.83-4.51 [facility] Absolute neutrophil countOrd ered By: Jayme Yang on 10-26-2024 Neutrophils (Bld) [#/Vol] 1.9 10*3/uL Low 2.0-7.7 [facility] Absolute neutrophil count 1.9 X10^3/uL Low 2.0-7.7 [facility] Automated lymphocyte count a s percentage of total leukocytesOrdered By: Jayme Yang on 10-26-2024 Lymphocytes/100 WBC Auto (Unsp spec) 34.3 % 19-41 [facility] Basophil percentageOrdered B y: Jayme Yang on 10-26-2024 Basophils/100 WBC (Bld) 0.3 % 0-1 [facility] Basophil percentage 0.3 % 0-1 [facility] Eosinophil percentageOrdered By: Jayme Yang on 10-26-2024 Eosinophils/100 WBC (Bld) 0.9 % 0-5 [facility] Eosinophil percentage 0.9 % 0-5 [facility] Erythrocyte distribution wid th (RBC) [Entitic vol]Ordered By: Jayme Yang on 10-26-2024 Erythrocyte distribution width standard deviation 51.6 fl High 35.1-43.9 [facility] Erythrocyte distribution wid th (RBC) [Ratio]Ordered By: Jayme Yang on 10-26-2024 Erythrocyte distribution width ratio 14.9 % High 11.6-14.6 [facility] Erythrocyte distribution width (RBC) [Entitic vol] 51.6 fL High 35.1-43.9 [facility] Erythrocyte distribution wid th ratioOrdered By: Jayme Yang on 10-26-2024 Erythrocyte distribution width (RBC) [Ratio] 14.9 % High 11.6-14.6 [facility] Erythrocyte distribution wid th standard deviationOrdered By: Jayme Yang on 10-26-2024 Erythrocyte distribution width (RBC) [Ratio] 51.6 fl High 35.1-43.9 [facility] Hematocrit Auto (Bld) [Volum e fraction]Ordered By: Jayme Yang on 10-26-2024 Hematocrit (Bld) [Volume fraction] 29.0 % Low 40-54 [facility] Automated blood hematocrit (percentage) 29.0 % Low 40-54 [facility] Hemoglobin measurementOrdere d By: Jayme Yang on 10-26-2024 Hemoglobin (Bld) [Mass/Vol] 9.6 g/dL Low 13.0-16.5 [facility] Hemoglobin measurement 9.6 g/dL Low 13.0-16.5 [facility] Immature granulocytes/100 WB C Auto (Bld)Ordered By: Jayme Yang on 10-26-2024 Immature granulocytes/100 WBC (Bld) 0.600 % 0.0-0.9 [facility] Comment on above: IG% - Immature Granu locytes (promyelocytes, myelocytes and metamyelocytes) > 1% indicates that a LEFT SHIFT is Present. Automated immature granulocyte percentage 0.600 % 0.0-0.9 [facility] Lymphocytes Auto (Unsp spec) [#/Vol]Ordered By: Jayme Yang on 10-26-2024 Lymphocytes (Bld) [#/Vol] 1.20 10*3/uL 0.83-4.51 [facility] Absolute lymphocyte count 1.20 X10^3/uL 0.83-4.51 [facility] Lymphocytes/100 WBC Auto (Un sp spec)Ordered By: Jayme Yang on 10-26-2024 Lymphocytes/100 WBC (Bld) 34.3 % [facility] Automated lymphocyte count as percentage of total leukocytes 34.3 % - [facility] MCV (RBC) [Entitic vol]Order ed By: Jayme Yang on 10-26-2024 MCV (mean corpuscular volume) determination 93.9 fL 80-94 [facility] MCV (mean corpuscular volume ) determinationOrdered By: Jayme Yang on 10-26-2024 MCV (RBC) [Entitic vol] 93.9 fL 80-94 [facility] Mean corpuscular hemoglobin (MCH) determinationOrdered By: Jayme Yang on 10-26-2024 MCH (RBC) [Entitic mass] 31.1 pg 27.0-32.0 [facility] Mean corpuscular hemoglobin (MCH) determination 31.1 pg 27.0-32.0 [facility] Mean corpuscular hemoglobin concentration (MCHC) determinationOrdered By: Jayme Yang on 10-26-2024 MCHC (RBC) [Mass/Vol] 33.1 g/dL 32-36 [facility] Mean corpuscular hemoglobin concentration (MCHC) determination 33.1 g/dL -36 [facility] Mean platelet volume determi nationOrdered By: Jayme Yang on 10-26-2024 Platelet mean volume (Bld) [Entitic vol] 11.6 fL 6.2-12.0 [facility] Mean platelet volume determination 11.6 fl 6.2-12.0 [facility] Monocyte percentageOrdered B y: Jayme Yang on 10-26-2024 Monocytes/100 WBC (Bld) 10.9 % High 0-10 [facility] Monocyte percentage 10.9 % High 0-10 [facility] Neutrophil percentageOrdered By: Jayme Yang on 10-26-2024 Neutrophils/100 WBC (Bld) 53.0 % 47-70 [facility] Neutrophil percentage 53.0 % 47-70 [facility] Nucleated red blood cell per centageOrdered By: Jayme Yang on 10-26-2024 Nucleated RBC/100 WBC (Bld) [Ratio] 0 % 0-5 [facility] Nucleated red blood cell percentage 0 % 0-5 [facility] Platelet countOrdered By: Adry Yang on 10-26-2024 Platelets (Bld) [#/Vol] 121 10*3/uL Low 150-450 [facility] Platelet count 121 K/mm3 Low 150-450 [facility] RBC Auto (Bld) [#/Vol]Ordere d By: Jayme Yang on 10-26-2024 RBC (Bld) [#/Vol] 3.09 10*6/uL Low 4.6-6.2 [facility] Automated blood erythrocyte count 3.09 M/mm3 Low 4.6-6.2 [facility] White blood cell (WBC) count Ordered By: Jayme Yang on 10-26-2024 WBC (Bld) [#/Vol] 3.5 10*3/uL Low 4.4-11.0 [facility] White blood cell (WBC) count 3.5 K/mm3 Low 4.4-11.0 [facility] Diagnostic total prostate sp ecific antigen (PSA) measurementOrdered By: Keo Montemayor on 10-05-2024 Prostate Specific Antigen Total 0.08 ng/mL 0.0-4.0 [facility] Comment on above: This test was perfor med using the TPSA assay method [facility]. Values obtained with differentassay methods cannot be used interchangably.When changing PSA assays in the course of monitoring apatient, additional sequential testing should be carriedout to confirm baseline values. Diagnostic total prostate specific antigen (PSA) measurement 0.08 ng/mL 0.0-4.0 [facility] ALP [Catalytic activity/Vol] Ordered By: Marycruz Yen on 09-12-2024 Serum or plasma alkaline phosphatase measurement 48 U/L 45-117 [facility] ALT [Catalytic activity/Vol] Ordered By: Marycruz Yen on 09-12-2024 Serum or plasma alanine aminotransferase (ALT) measurement 32 U/L 16-61 [facility] Absolute neutrophil countOrd ered By: Marycruz Yen on 09-12-2024 Absolute neutrophil count 1.7 X10^3/uL Low 2.0-7.7 [facility] Albumin [Mass/Vol]Ordered By : Marycruz Yen on 09-12-2024 Serum or plasma albumin measurement (mass/volume) 3.5 g/dL 3.2-5.0 [facility] Albumin to globulin ratioOrd ered By: Marycruz Yen on 09-12-2024 Albumin to globulin ratio 1.1 RATIO 0.9-2.4 [facility] Basophil percentageOrdered B y: Marycruz Yen on 09-12-2024 Basophil percentage 0.3 % 0-1 [facility] Bilirubin, totalOrdered By: Marycruz Yen on 09-12-2024 Bilirubin, total 0.40 mg/dL 0.20-1.00 [facility] Blood urea nitrogen (BUN)/cr eatinine ratioOrdered By: Marycruz Yen on 09-12-2024 Blood urea nitrogen (BUN)/creatinine ratio 11.7 RATIO 10-20 [facility] Calcium [Mass/Vol]Ordered By : Marycruz Yen on 09-12-2024 Serum or plasma calcium measurement (mass/volume) 9.1 mg/dL 8.5-10.1 [facility] Carbon dioxide measurementOr dered By: Marycruz Yen on 09-12-2024 Carbon dioxide measurement 32.0 mmol/L 21.0-32.0 [facility] Chloride measurementOrdered By: Marycruz Yen on 09-12-2024 Chloride measurement 108 mmol/L High 98-107 [facility] Creatinine [Mass/Vol]Ordered By: Marycruz Yen on 09-12-2024 Serum or plasma creatinine measurement (mass/volume) 1.37 mg/dL High 0.70-1.30 [facility] Eosinophil percentageOrdered By: Marycruz Yen on 09-12-2024 Eosinophil percentage 1.7 % 0-5 [facility] Erythrocyte distribution wid th (RBC) [Entitic vol]Ordered By: Marycruz Yen on 09-12-2024 Erythrocyte distribution width standard deviation 53.8 fl High 35.1-43.9 [facility] Erythrocyte distribution wid th (RBC) [Ratio]Ordered By: Marycruz Yen on 09-12-2024 Erythrocyte distribution width ratio 15.3 % High 11.6-14.6 [facility] Estimated glomerular filtrat ion rate (GFR) AmericanOrdered By: Marycruz Yen on 09-12-2024 Estimated glomerular filtration rate (GFR) 64 mL/min >60 [facility] Glomerular filtration rate ( GFR) estimationOrdered By: Marycruz Yen on 09-12-2024 Glomerular filtration rate (GFR) estimation 53 mL/min Low >60 [facility] Glucose measurementOrdered B y: Marycruz Yen on 09-12-2024 Glucose measurement 116 mg/dL High 74-106 [facility] Hematocrit Auto (Bld) [Volum e fraction]Ordered By: Marycruz Yen on 09-12-2024 Automated blood hematocrit (percentage) 32.1 % Low 40-54 [facility] Hemoglobin measurementOrdere d By: Marycruz Yen on 09-12-2024 Hemoglobin measurement 10.5 g/dL Low 13.0-16.5 [facility] Immature granulocytes/100 WB C Auto (Bld)Ordered By: Marycruz Yen on 09-12-2024 Automated immature granulocyte percentage 0.300 % 0.0-0.9 [facility] Lymphocytes Auto (Unsp spec) [#/Vol]Ordered By: Marycruz Yen on 09-12-2024 Absolute lymphocyte count 1.42 X10^3/uL 0.83-4.51 [facility] Lymphocytes/100 WBC Auto (Un sp spec)Ordered By: Marycruz Yen on 09-12-2024 Automated lymphocyte count as percentage of total leukocytes 40.7 % 19-41 [facility] MCV (RBC) [Entitic vol]Order ed By: Marycruz Yen on 09-12-2024 MCV (mean corpuscular volume) determination 95.3 fL High 80-94 [facility] Mean corpuscular hemoglobin (MCH) determinationOrdered By: Marycruz Yen on 09-12-2024 Mean corpuscular hemoglobin (MCH) determination 31.2 pg 27.0-32.0 [facility] Mean corpuscular hemoglobin concentration (MCHC) determinationOrdered By: Marycruz Yen on 09-12-2024 Mean corpuscular hemoglobin concentration (MCHC) determination 32.7 g/dL 32-36 [facility] Mean platelet volume determi nationOrdered By: Marycruz Yen on 09-12-2024 Mean platelet volume determination 10.8 fl 6.2-12.0 [facility] Monocyte percentageOrdered B y: Marycruz Yen on 09-12-2024 Monocyte percentage 8.3 % 0-10 [facility] Neutrophil percentageOrdered By: Marycruz Yen on 09-12-2024 Neutrophil percentage 48.7 % 47-70 [facility] No Panel InformationOrdered By: Marycruz Yen on 09-12-2024 19 U/L 15-37 [facility] Nucleated red blood cell per centageOrdered By: Marycruz Yen on 09-12-2024 Nucleated red blood cell percentage 0 % 0-5 [facility] Platelet countOrdered By: Adry Yen on 09-12-2024 Platelet count 141 K/mm3 Low 150-450 [facility] Potassium measurementOrdered By: Marycruz Yen on 09-12-2024 Potassium measurement 3.6 mmol/L 3.5-5.1 [facility] RBC Auto (Bld) [#/Vol]Ordere d By: Marycruz Yen on 09-12-2024 Automated blood erythrocyte count 3.37 M/mm3 Low 4.6-6.2 [facility] Serum anion gap measurementO rdered By: Marycruz Yen on 09-12-2024 Serum anion gap measurement 3 Low 5-15 [facility] Serum globulin measurementOr dered By: Marycruz Yne on 09-12-2024 Serum globulin measurement 3.2 g/dL 2.2-4.2 [facility] Sodium levelOrdered By: Anival Yen on 09-12-2024 Sodium level 143 mmol/L 136-145 [facility] Total proteinOrdered By: Jamir Yen on 09-12-2024 Total protein 6.7 g/dL 6.4-8.2 [facility] Urate [Mass/Vol]Ordered By: Marycruz Yen on 09-12-2024 Serum or plasma uric acid measurement (mass/volume) 5.2 mg/dL 3.5-7.2 [facility] Urea nitrogen [Mass/Vol]Orde red By: Marycruz Yen on 09-12-2024 Serum or plasma urea nitrogen measurement (mass/volume) 16 mg/dL 7-18 [facility] White blood cell (WBC) count Ordered By: Marycruz Yen on 09-12-2024 White blood cell (WBC) count 3.5 K/mm3 Low 4.4-11.0 [facility] Absolute lymphocyte countOrd ered By: Marycruz Yen on 01-10-2024 Lymphocytes Auto (Unsp spec) [#/Vol] 1.47 10*3/uL 0.83-4.51 [facility] Automated lymphocyte count a s percentage of total leukocytesOrdered By: Marycruz Yen on 01-10-2024 Lymphocytes/100 WBC Auto (Unsp spec) 19.7 % 19-41 [facility] Basophil percentageOrdered B y: Marycruz Yen on 01-10-2024 Basophil percentage 12.1 g/dL 13.0-16.5 [facility] Basophil percentage 119 mg/dL 74-106 [facility] Basophil percentage 7.3 g/dL 6.4-8.2 [facility] Basophil percentage 0.40 mg/dL 0.20-1.00 [facility] Basophil percentage 139 mmol/L 136-145 [facility] Basophil percentage 3.5 mmol/L 3.5-5.1 [facility] Basophil percentage 107 mmol/L 98-107 [facility] Basophils (Bld) [#/Vol] 7.5 10*3/uL 4.4-11.0 [facility] Basophils (Bld) [#/Vol] 5.1 10*3/uL 2.0-7.7 [facility] Basophils/100 WBC (Bld) 68.5 % 47-70 [facility] Basophils/100 WBC (Bld) 9.6 % 0-10 [facility] Basophils/100 WBC (Bld) 1.6 % 0-5 [facility] Basophils/100 WBC (Bld) 0.3 % 0-1 [facility] Determination of erythrocyte mean corpuscular volume (MCV)Ordered By: Marycruz Yen on 01-10-2024 MCV (RBC) [Entitic vol] 94.1 fL 80-94 [facility] Erythrocyte distribution wid th ratioOrdered By: Marycruz Yen on 01-10-2024 Erythrocyte distribution width (RBC) [Ratio] 14.2 % 11.6-14.6 [facility] Erythrocyte distribution wid th standard deviationOrdered By: Marycruz Yen on 01-10-2024 Erythrocyte distribution width (RBC) [Entitic vol] 48.6 fL 35.1-43.9 [facility] Hematocrit Auto (Bld) [Volum e fraction]Ordered By: Marycruz Yen on 01-10-2024 Hematocrit (Bld) [Volume fraction] 36.6 % 40-54 [facility] Immature granulocytes/100 WB C Auto (Bld)Ordered By: Marycruz Yen on 01-10-2024 Immature granulocytes/100 WBC (Bld) 0.300 % 0.0-0.9 [facility] No Panel InformationOrdered By: Marycruz Farshad on 01-10-2024 31.1 pg 27.0-32.0 [facility] 33.1 g/dL 32-36 [facility] 185 K/mm3 150-450 [facility] 11.9 fl 6.2-12.0 [facility] 0 % 0-5 [facility] 46 mL/min >60 [facility] 55 mL/min >60 [facility] 12.7 RATIO 10-20 [facility] 3.7 g/dL 2.2-4.2 [facility] 1.0 RATIO 0.9-2.4 [facility] 58 U/L 45-117 [facility] 41 U/L 16-61 [facility] 29.0 mmol/L 21.0-32.0 [facility] RBC Auto (Bld) [#/Vol]Ordere d By: Marycruz Yen on 01-10-2024 RBC (Bld) [#/Vol] 3.89 10*6/uL 4.6-6.2 [facility] Serum or plasma calcium amanda urement (mass/volume)Ordered By: Marycruz Yen on 01-10-2024 Calcium [Mass/Vol] 9.1 mg/dL 8.5-10.1 [facility] Serum or plasma creatinine m easurement (mass/volume)Ordered By: Marycruz Yen on 01-10-2024 Creatinine [Mass/Vol] 1.57 mg/dL 0.70-1.30 [facility] Serum or plasma urea nitroge n measurement (mass/volume)Ordered By: Marycruzjulisa Yen on 01-10-2024 Urea nitrogen [Mass/Vol] 20 mg/dL 7-18 [facility] Serum or plasma uric acid me asurement (mass/volume)Ordered By: Marycruz Yen on 01-10-2024 Urate [Mass/Vol] 5.8 mg/dL 3.5-7.2 [facility] Thin prep Papanicolaou smear with manual screeningOrdered By: Marycruz Yen on 01-10-2024 Thin prep Papanicolaou smear with manual screening 3.6 g/dL 3.2-5.0 [facility] Thin prep Papanicolaou smear with manual screening 36 U/L 15-37 [facility] Thin prep Papanicolaou smear with manual screening 3 5-15 [facility] Basophil percentageOrdered B y: Suzie Ashton on 12-11-2023 Basophil percentage 0.07 ng/mL 0.0-4.0 [facility] Serum or plasma thyroid stim ulating hormone (TSH) measurement (units/volume)Ordered By: Suzie Ashton on 12-11-2023 TSH Qn 5.13 uIU/mL 0.358-3.74 [facility] Basophil percentageOrdered B y: Js Lee on 11-13-2023 Basophil percentage 139 mg/dL 74-106 [facility] Basophil percentage 146 mmol/L 136-145 [facility] Basophil percentage 3.5 mmol/L 3.5-5.1 [facility] Basophil percentage 111 mmol/L 98-107 [facility] No Panel InformationOrdered By: Js Lee on 11-13-2023 61 mL/min >60 [facility] 74 mL/min >60 [facility] 55.64 ml/min [facility] 17.4 RATIO 10-20 [facility] 31.0 mmol/L 21.0-32.0 [facility] Serum or plasma calcium amanda urement (mass/volume)Ordered By: Js Lee on 11-13-2023 Calcium [Mass/Vol] 8.9 mg/dL 8.5-10.1 [facility] Serum or plasma creatinine m easurement (mass/volume)Ordered By: Js Lee on 11-13-2023 Creatinine [Mass/Vol] 1.21 mg/dL 0.70-1.30 [facility] Serum or plasma urea nitroge n measurement (mass/volume)Ordered By: Js Lee on 11-13-2023 Urea nitrogen [Mass/Vol] 21 mg/dL 7-18 [facility] Thin prep Papanicolaou smear with manual screeningOrdered By: Js Lee on 11-13-2023 Thin prep Papanicolaou smear with manual screening 4 5-15 [facility] Basophil percentageOrdered B y: Js Lee on 11-12-2023 Basophil percentage 11.8 g/dL 13.0-16.5 [facility] Basophils (Bld) [#/Vol] 5.8 10*3/uL 4.4-11.0 [facility] Determination of erythrocyte mean corpuscular volume (MCV)Ordered By: Js Lee on 11-12-2023 MCV (RBC) [Entitic vol] 94.7 fL 80-94 [facility] Erythrocyte distribution wid th ratioOrdered By: Js Lee on 11-12-2023 Erythrocyte distribution width (RBC) [Ratio] 15.7 % 11.6-14.6 [facility] Erythrocyte distribution wid th standard deviationOrdered By: Js Lee on 11-12-2023 Erythrocyte distribution width (RBC) [Entitic vol] 54.9 fL 35.1-43.9 [facility] Hematocrit Auto (Bld) [Volum e fraction]Ordered By: Js Lee on 11-12-2023 Hematocrit (Bld) [Volume fraction] 36.0 % 40-54 [facility] No Panel InformationOrdered By: Js Lee on 11-12-2023 31.1 pg 27.0-32.0 [facility] 32.8 g/dL 32-36 [facility] 166 K/mm3 150-450 [facility] 11.4 fl 6.2-12.0 [facility] No Panel InformationOrdered By: Laureano Jennings on 11-12-2023 146 pg/mL 3.0-78.0 [facility] RBC Auto (Bld) [#/Vol]Ordere d By: Js Lee on 11-12-2023 RBC (Bld) [#/Vol] 3.80 10*6/uL 4.6-6.2 [facility] Absolute lymphocyte countOrd ered By: Ana Maria Barnhart on 11-11-2023 Lymphocytes Auto (Unsp spec) [#/Vol] 2.28 10*3/uL 0.83-4.51 [facility] Automated lymphocyte count a s percentage of total leukocytesOrdered By: Ana Maria Barnhart on 11-11-2023 Lymphocytes/100 WBC Auto (Unsp spec) 32.6 % 19-41 [facility] Basophil percentageOrdered B y: Laureano Jennings on 11-11-2023 Basophil percentage 148 mg/dL <200 [facility] Basophil percentage 255 mg/dL <199 [facility] Basophil percentageOrdered B y: Ana Maria Barnhart on 11-11-2023 Basophil percentage 12.5 g/dL 13.0-16.5 [facility] Basophil percentage 221 mg/dL 74-106 [facility] Basophil percentage 144 mmol/L 136-145 [facility] Basophil percentage 3.4 mmol/L 3.5-5.1 [facility] Basophil percentage 111 mmol/L 98-107 [facility] Basophils (Bld) [#/Vol] 7.0 10*3/uL 4.4-11.0 [facility] Basophils (Bld) [#/Vol] 3.7 10*3/uL 2.0-7.7 [facility] Basophils/100 WBC (Bld) 52.3 % 47-70 [facility] Basophils/100 WBC (Bld) 11.6 % 0-10 [facility] Basophils/100 WBC (Bld) 2.9 % 0-5 [facility] Basophils/100 WBC (Bld) 0.3 % 0-1 [facility] Determination of erythrocyte mean corpuscular volume (MCV)Ordered By: Ana Maria Barnhart on 11-11-2023 MCV (RBC) [Entitic vol] 94.4 fL 80-94 [facility] Erythrocyte distribution wid th ratioOrdered By: Ana Maria Barnhart on 11-11-2023 Erythrocyte distribution width (RBC) [Ratio] 15.3 % 11.6-14.6 [facility] Erythrocyte distribution wid th standard deviationOrdered By: Ana Maria Barnhart on 11-11-2023 Erythrocyte distribution width (RBC) [Entitic vol] 53.4 fL 35.1-43.9 [facility] Hematocrit Auto (Bld) [Volum e fraction]Ordered By: Ana Maria Barnhart on 11-11-2023 Hematocrit (Bld) [Volume fraction] 38.6 % 40-54 [facility] Immature granulocytes/100 WB C Auto (Bld)Ordered By: Ana Maria Barnhart on 11-11-2023 Immature granulocytes/100 WBC (Bld) 0.300 % 0.0-0.9 [facility] No Panel InformationOrdered By: Luareano Jennings on 11-11-2023 33 mg/dL >40 [facility] 64 mg/dL 0-130 [facility] 51 mg/dL 5-40 [facility] No Panel InformationOrdered By: Ana Maria Barnhart on 11-11-2023 30.6 pg 27.0-32.0 [facility] 32.4 g/dL 32-36 [facility] 155 K/mm3 150-450 [facility] 11.2 fl 6.2-12.0 [facility] 0 % 0-5 [facility] 51 mL/min >60 [facility] 61 mL/min >60 [facility] 47.81 ml/min [facility] 11.2 RATIO 10-20 [facility] 1.9 mg/dL 1.6-2.6 [facility] 28.0 mmol/L 21.0-32.0 [facility] RBC Auto (Bld) [#/Vol]Ordere d By: Ana Maria Barnhart on 11-11-2023 RBC (Bld) [#/Vol] 4.09 10*6/uL 4.6-6.2 [facility] Serum or plasma calcium amanda urement (mass/volume)Ordered By: Ana Maria Barnhart on 11-11-2023 Calcium [Mass/Vol] 9.1 mg/dL 8.5-10.1 [facility] Serum or plasma cardiac trop onin I panel by high sensitivity methodOrdered By: Ana Maria Barnhart on 11-11-2023 Tropinin I.cardiac panel High sensitivity method 23 pg/mL 3.0-78.0 [facility] Serum or plasma creatinine m easurement (mass/volume)Ordered By: Ana Maria Barnhart on 11-11-2023 Creatinine [Mass/Vol] 1.43 mg/dL 0.70-1.30 [facility] Serum or plasma urea nitroge n measurement (mass/volume)Ordered By: Ana Maria Barnhart on 11-11-2023 Urea nitrogen [Mass/Vol] 16 mg/dL 7-18 [facility] Thin prep Papanicolaou smear with manual screeningOrdered By: Ana Maria Barnhart on 11-11-2023 Thin prep Papanicolaou smear with manual screening 5 5-15 [facility] Basophil percentageOrdered B y: Keo Montemayor on 11-08-2023 Basophil percentage 0 SEEN /hpf 0-5 [facility] Bilirubin Test strip Ql (U)O rdered By: Keo Montemayor on 11-08-2023 Bilirubin Ql (U) Negative Negative [facility] Ketones Test strip Ql (U)Ord ered By: Keo Montemayor on 11-08-2023 Ketones Ql (U) Negative Negative [facility] Mucus LM Ql (Urine sed)Order ed By: Keo Montemayor on 11-08-2023 Mucus Ql (Urine sed) RARE /hpf [facility] Nitrite Test strip Ql (U)Ord ered By: Keo Montemayor on 11-08-2023 Nitrite Ql (U) Negative Negative [facility] No Panel InformationOrdered By: Keo Montemayor on 11-08-2023 10-25 SEEN /hpf 0-5 [facility] Protein Test strip Ql (U)Ord ered By: Keo Montemayor on 11-08-2023 Protein Ql (U) 100 mg/dl Negative [facility] Squamous epithelial cells de tection in urine sediment by light microscopyOrdered By: Keo Montemayor on 11-08-2023 Epithelial cells.squamous LM Ql (Urine sed) 0-5 SEEN /hpf 0-5 [facility] Urine blood detectionOrdered By: Keo Montemayor on 11-08-2023 RBC Ql (U) 25 /ul Negative [facility] Urine clarityOrdered By: Magdi Montemayor on 11-08-2023 Clarity (U) Sl. Cloudy Clear [facility] Urine color determinationOrd ered By: Keo Montemayor on 11-08-2023 Color (U) Yellow Yellow [facility] Urine glucose detectionOrder ed By: Keo Montemayor on 11-08-2023 Glucose Ql (U) Normal mg/dl Normal [facility] Urine leukocyte esterase det ection by dipstickOrdered By: Keo Montemayor on 11-08-2023 Leukocyte esterase Test strip Ql (U) Negative Negative [facility] Urine pHOrdered By: Keo myers on 11-08-2023 pH (U) 6.0 [pH] 5.0 - 8.0 [facility] Urine sediment bacteria coun t by microscopy (number/high power field)Ordered By: Koe Montemayor on 11-08-2023 Bacteria LM.HPF (Urine sed) [#/Area] RARE /hpf None Seen [facility] Urine specific gravity measu rementOrdered By: Keo Montemayor on 11-08-2023 Specific gravity (U) [Rel density] 1.015 1.002-1.03 0 [facility] Urine urobilinogen measureme ntOrdered By: Keo Montemayor on 11-08-2023 Urobilinogen Ql (U) Normal mg/dl Normal [facility] Absolute lymphocyte countOrd ered By: Marycruz Yen on 10-16-2023 Lymphocytes Auto (Unsp spec) [#/Vol] 1.88 10*3/uL 0.83-4.51 [facility] Automated lymphocyte count a s percentage of total leukocytesOrdered By: Marycruz Yen on 10-16-2023 Lymphocytes/100 WBC Auto (Unsp spec) 37.8 % 19-41 [facility] Basophil percentageOrdered B y: Marycruz Yen on 10-16-2023 Basophil percentage 12.2 g/dL 13.0-16.5 [facility] Basophil percentage 119 mg/dL 74-106 [facility] Basophil percentage 7.4 g/dL 6.4-8.2 [facility] Basophil percentage 0.40 mg/dL 0.20-1.00 [facility] Basophil percentage 143 mmol/L 136-145 [facility] Basophil percentage 3.8 mmol/L 3.5-5.1 [facility] Basophil percentage 110 mmol/L 98-107 [facility] Basophils (Bld) [#/Vol] 5.0 10*3/uL 4.4-11.0 [facility] Basophils (Bld) [#/Vol] 2.1 10*3/uL 2.0-7.7 [facility] Basophils/100 WBC (Bld) 42.7 % 47-70 [facility] Basophils/100 WBC (Bld) 13.1 % 0-10 [facility] Basophils/100 WBC (Bld) 5.8 % 0-5 [facility] Basophils/100 WBC (Bld) 0.4 % 0-1 [facility] Determination of erythrocyte mean corpuscular volume (MCV)Ordered By: Marycruz Yen on 10-16-2023 MCV (RBC) [Entitic vol] 93.9 fL 80-94 [facility] Erythrocyte distribution wid th ratioOrdered By: Marycruz Farshad on 10-16-2023 Erythrocyte distribution width (RBC) [Ratio] 16.2 % 11.6-14.6 [facility] Erythrocyte distribution wid th standard deviationOrdered By: Marycruz Yen on 10-16-2023 Erythrocyte distribution width (RBC) [Entitic vol] 55.0 fL 35.1-43.9 [facility] Hematocrit Auto (Bld) [Volum e fraction]Ordered By: Marycruz Yen on 10-16-2023 Hematocrit (Bld) [Volume fraction] 36.7 % 40-54 [facility] Immature granulocytes/100 WB C Auto (Bld)Ordered By: Marycruz Yen on 10-16-2023 Immature granulocytes/100 WBC (Bld) 0.200 % 0.0-0.9 [facility] No Panel InformationOrdered By: Marycruz Yen on 10-16-2023 31.2 pg 27.0-32.0 [facility] 33.2 g/dL 32-36 [facility] 152 K/mm3 150-450 [facility] 0 % 0-5 [facility] 58 mL/min >60 [facility] 70 mL/min >60 [facility] 12.5 RATIO 10-20 [facility] 4.1 g/dL 2.2-4.2 [facility] 0.8 RATIO 0.9-2.4 [facility] 57 U/L 16-61 [facility] 28.0 mmol/L 21.0-32.0 [facility] Platelet mean volume Derrick-Ec ker (Bld) [Entitic vol]Ordered By: Marycruz Yen on 10-16-2023 Platelet mean volume (Bld) [Entitic vol] 10.4 fL 6.2-12.0 [facility] RBC Auto (Bld) [#/Vol]Ordere d By: Marycruz Yen on 10-16-2023 RBC (Bld) [#/Vol] 3.91 10*6/uL 4.6-6.2 [facility] Serum or plasma calcium amanda urement (mass/volume)Ordered By: Marycruz Yen on 10-16-2023 Calcium [Mass/Vol] 9.2 mg/dL 8.5-10.1 [facility] Serum or plasma creatinine m easurement (mass/volume)Ordered By: Marycruz Yen on 10-16-2023 Creatinine [Mass/Vol] 1.28 mg/dL 0.70-1.30 [facility] Serum or plasma urea nitroge n measurement (mass/volume)Ordered By: Marycruz Yen on 10-16-2023 Urea nitrogen [Mass/Vol] 16 mg/dL 7-18 [facility] Serum or plasma uric acid me asurement (mass/volume)Ordered By: Marycruz Yen on 10-16-2023 Urate [Mass/Vol] 4.3 mg/dL 3.5-7.2 [facility] Thin prep Papanicolaou smear with manual screeningOrdered By: Marycruz Yen on 10-16-2023 Thin prep Papanicolaou smear with manual screening 3.3 g/dL 3.2-5.0 [facility] Thin prep Papanicolaou smear with manual screening 39 U/L 15-37 [facility] Thin prep Papanicolaou smear with manual screening 5 5-15 [facility] Absolute lymphocyte countOrd ered By: Marycruz Yen on 09-27-2023 Lymphocytes Auto (Unsp spec) [#/Vol] 1.33 10*3/uL 0.83-4.51 [facility] Basophil percentageOrdered B y: Marycruz Yen on 09-27-2023 Basophil percentage 288 mg/dL 74-106 [facility] Basophil percentage 7.0 g/dL 6.4-8.2 [facility] Basophil percentage 0.40 mg/dL 0.20-1.00 [facility] Basophil percentage 139 mmol/L 136-145 [facility] Basophil percentage 3.6 mmol/L 3.5-5.1 [facility] Basophil percentage 105 mmol/L 98-107 [facility] Basophils (Bld) [#/Vol] 6.7 10*3/uL 4.4-11.0 [facility] Basophils (Bld) [#/Vol] 4.3 10*3/uL 2.0-7.7 [facility] Basophils/100 WBC (Bld) 64.9 % 47-70 [facility] Basophils/100 WBC (Bld) 0.9 % 0-5 [facility] Basophils/100 WBC (Bld) 0.1 % 0-1 [facility] Blood erythrocytes count (nu mber/volume)Ordered By: Marycruz Yen on 09-27-2023 RBC (Bld) [#/Vol] 3.97 10*6/uL 4.6-6.2 [facility] Blood hemoglobin measurement (mass/volume)Ordered By: Marycruz eYn on 09-27-2023 Hemoglobin (Bld) [Mass/Vol] 12.3 g/dL 13.0-16.5 [facility] Blood lymphocytes/100 leukoc ytesOrdered By: Marycruz Yen on 09-27-2023 Lymphocytes/100 WBC (Bld) 19.9 % 19-41 [facility] Blood monocytes/100 leukocyt esOrdered By: Marycruz Yen on 09-27-2023 Monocytes/100 WBC (Bld) 12.3 % 0-10 [facility] Blood platelet mean volumeOr dered By: Marycruz Yen on 09-27-2023 Platelet mean volume (Bld) [Entitic vol] 10.2 fL 6.2-12.0 [facility] Determination of erythrocyte mean corpuscular volume (MCV)Ordered By: Marycruz Yen on 09-27-2023 MCV (RBC) [Entitic vol] 91.9 fL 80-94 [facility] Hematocrit Auto (Bld) [Volum e fraction]Ordered By: Marycruz Yen on 09-27-2023 Hematocrit (Bld) [Volume fraction] 36.5 % 40-54 [facility] MCHC Auto (RBC) [Mass/Vol]Or dered By: Marycruz Yen on 09-27-2023 MCHC (RBC) [Mass/Vol] 33.7 g/dL 32-36 [facility] No Panel InformationOrdered By: Marycruz Yen on 09-27-2023 31.0 pg 27.0-32.0 [facility] 15.1 % 11.6-14.6 [facility] 50.6 fl 35.1-43.9 [facility] 1.900 % 0.0-0.9 [facility] 0.6 % 0-5 [facility] 45 mL/min >60 [facility] 54 mL/min >60 [facility] 15.6 RATIO 10-20 [facility] 4.1 g/dL 2.2-4.2 [facility] 65 U/L 45-117 [facility] 48 U/L 16-61 [facility] 28.0 mmol/L 21.0-32.0 [facility] Platelets bldOrdered By: Jamir Yen on 09-27-2023 Platelets (Bld) [#/Vol] 132 10*3/uL 150-450 [facility] Serum or plasma albumin amanda urement (mass/volume)Ordered By: Marycruz Yen on 09-27-2023 Albumin [Mass/Vol] 2.9 g/dL 3.2-5.0 [facility] Serum or plasma albumin/glob ulin mass ratioOrdered By: aMrycruz Yen on 09-27-2023 Albumin/Globulin [Mass ratio] 0.7 {ratio} 0.9-2.4 [facility] Serum or plasma calcium amanda urement (mass/volume)Ordered By: Marycruz Yen on 09-27-2023 Calcium [Mass/Vol] 8.7 mg/dL 8.5-10.1 [facility] Serum or plasma creatinine m easurement (mass/volume)Ordered By: Marycruz Yen on 09-27-2023 Creatinine [Mass/Vol] 1.60 mg/dL 0.70-1.30 [facility] Serum or plasma urea nitroge n measurement (mass/volume)Ordered By: Marycruzjulisa Yen on 09-27-2023 Urea nitrogen [Mass/Vol] 25 mg/dL 7-18 [facility] Serum or plasma uric acid me asurement (mass/volume)Ordered By: Marycruz Yen on 09-27-2023 Urate [Mass/Vol] 5.3 mg/dL 3.5-7.2 [facility] Thin prep Papanicolaou smear with manual screeningOrdered By: Marycruz Yen on 09-27-2023 Thin prep Papanicolaou smear with manual screening 30 U/L 15-37 [facility] Thin prep Papanicolaou smear with manual screening 6 5-15 [facility] Absolute lymphocyte countOrd ered By: Boris Bojorquez on 09-24-2023 Lymphocytes Auto (Unsp spec) [#/Vol] 1.09 10*3/uL 0.83-4.51 [facility] Basophil percentageOrdered B y: Boris Bojorquez on 09-24-2023 Basophil percentage 261 mg/dL 74-106 [facility] Basophil percentage 140 mmol/L 136-145 [facility] Basophil percentage 3.8 mmol/L 3.5-5.1 [facility] Basophil percentage 107 mmol/L 98-107 [facility] Basophils (Bld) [#/Vol] 5.0 10*3/uL 4.4-11.0 [facility] Basophils (Bld) [#/Vol] 3.6 10*3/uL 2.0-7.7 [facility] Basophils/100 WBC (Bld) 71.5 % 47-70 [facility] Basophils/100 WBC (Bld) 0.0 % 0-5 [facility] Basophils/100 WBC (Bld) 0.2 % 0-1 [facility] Blood erythrocytes count (nu mber/volume)Ordered By: Boris Bojorquez on 09-24-2023 RBC (Bld) [#/Vol] 3.74 10*6/uL 4.6-6.2 [facility] Blood hemoglobin measurement (mass/volume)Ordered By: Boris Bojorquez on 09-24-2023 Hemoglobin (Bld) [Mass/Vol] 11.2 g/dL 13.0-16.5 [facility] Blood lymphocytes/100 leukoc ytesOrdered By: Boris Bojorquez on 09-24-2023 Lymphocytes/100 WBC (Bld) 21.9 % 19-41 [facility] Blood monocytes/100 leukocyt esOrdered By: Boris Bojorquez on 09-24-2023 Monocytes/100 WBC (Bld) 5.6 % 0-10 [facility] Blood platelet mean volumeOr dered By: Boris Bojorquez on 09-24-2023 Platelet mean volume (Bld) [Entitic vol] 10.7 fL 6.2-12.0 [facility] Determination of erythrocyte mean corpuscular volume (MCV)Ordered By: Boris Bojorquez on 09-24-2023 MCV (RBC) [Entitic vol] 93.6 fL 80-94 [facility] Glucose Glucometer (BldC) [M ass/Vol]Ordered By: Boris Bojorquez on 09-24-2023 Glucose [Mass/Vol] 242 mg/dL 74-106 [facility] Hematocrit Auto (Bld) [Volum e fraction]Ordered By: Boris Bojorquez on 09-24-2023 Hematocrit (Bld) [Volume fraction] 35.0 % 40-54 [facility] MCHC Auto (RBC) [Mass/Vol]Or dered By: Boris Bojorquez on 09-24-2023 MCHC (RBC) [Mass/Vol] 32.0 g/dL 32-36 [facility] No Panel InformationOrdered By: Boris Bojorquez on 09-24-2023 29.9 pg 27.0-32.0 [facility] 15.0 % 11.6-14.6 [facility] 51.7 fl 35.1-43.9 [facility] 0.800 % 0.0-0.9 [facility] 0 % 0-5 [facility] 46 mL/min >60 [facility] 56 mL/min >60 [facility] 36.13 ml/min [facility] 20.6 RATIO 10-20 [facility] 26.0 mmol/L 21.0-32.0 [facility] Platelets bldOrdered By: Didier Bojorquez on 09-24-2023 Platelets (Bld) [#/Vol] 124 10*3/uL 150-450 [facility] Serum or plasma calcium amanda urement (mass/volume)Ordered By: Boris Bojorquez on 09-24-2023 Calcium [Mass/Vol] 8.9 mg/dL 8.5-10.1 [facility] Serum or plasma creatinine m easurement (mass/volume)Ordered By: Boris Bojorquez on 09-24-2023 Creatinine [Mass/Vol] 1.55 mg/dL 0.70-1.30 [facility] Serum or plasma urea nitroge n measurement (mass/volume)Ordered By: Boris Bojorquez on 09-24-2023 Urea nitrogen [Mass/Vol] 32 mg/dL 7-18 [facility] Thin prep Papanicolaou smear with manual screeningOrdered By: Boris Bojorquez on 09-24-2023 Thin prep Papanicolaou smear with manual screening 7 5-15 [facility] Bacteria identified Respirat ory culture Nom (Unsp spec)Ordered By: Drake Mason on 09-20-2023 Microbial respiratory culture Pseudomonas aeruginosa [facility] Microbial respiratory culture Pseudomonas aeruginosa [facility] Basophil percentageOrdered B y: Jonathan Lopez on 09-20-2023 Basophil percentage 176 mg/dL 74-106 [facility] Basophil percentage 141 mmol/L 136-145 [facility] Basophil percentage 3.5 mmol/L 3.5-5.1 [facility] Basophil percentage 109 mmol/L 98-107 [facility] Basophils (Bld) [#/Vol] 5.8 10*3/uL 4.4-11.0 [facility] Blood erythrocytes count (nu mber/volume)Ordered By: Jonathan Lopez on 09-20-2023 RBC (Bld) [#/Vol] 3.72 10*6/uL 4.6-6.2 [facility] Blood hemoglobin measurement (mass/volume)Ordered By: Jonathan Lopez on 09-20-2023 Hemoglobin (Bld) [Mass/Vol] 11.3 g/dL 13.0-16.5 [facility] Blood platelet mean volumeOr dered By: Jonathan Lopez on 09-20-2023 Platelet mean volume (Bld) [Entitic vol] 10.6 fL 6.2-12.0 [facility] Determination of erythrocyte mean corpuscular volume (MCV)Ordered By: Jonathan Lopez on 09-20-2023 MCV (RBC) [Entitic vol] 90.9 fL 80-94 [facility] Gram stain for investigation of transfusion reactionOrdered By: Drake Mason on 09-20-2023 Microscopic observation Gram stain Nom (Unsp spec) [facility] Microscopic observation Gram stain Nom (Unsp spec) [facility] Hematocrit Auto (Bld) [Volum e fraction]Ordered By: Jonathan Lopez on 09-20-2023 Hematocrit (Bld) [Volume fraction] 33.8 % 40-54 [facility] MCHC Auto (RBC) [Mass/Vol]Or dered By: Jonathan Lopez on 09-20-2023 MCHC (RBC) [Mass/Vol] 33.4 g/dL 32-36 [facility] No Panel InformationOrdered By: Jonathan Lopez on 09-20-2023 30.4 pg 27.0-32.0 [facility] 15.1 % 11.6-14.6 [facility] 50.2 fl 35.1-43.9 [facility] 53 mL/min >60 [facility] 64 mL/min >60 [facility] 40.88 ml/min [facility] 11.7 RATIO 10-20 [facility] 27.0 mmol/L 21.0-32.0 [facility] Platelets bldOrdered By: Luke Lopez on 09-20-2023 Platelets (Bld) [#/Vol] 123 10*3/uL 150-450 [facility] RSV Ag EIAOrdered By: Jonathan campbell on 09-20-2023 RSV Ag Immune stain Ql (Tiss) [facility] Serum or plasma calcium amanda urement (mass/volume)Ordered By: Jonathan Lopez on 09-20-2023 Calcium [Mass/Vol] 8.7 mg/dL 8.5-10.1 [facility] Serum or plasma creatinine m easurement (mass/volume)Ordered By: Jonathan Lopez on 09-20-2023 Creatinine [Mass/Vol] 1.37 mg/dL 0.70-1.30 [facility] Serum or plasma urea nitroge n measurement (mass/volume)Ordered By: Jonathan Lopez on 09-20-2023 Urea nitrogen [Mass/Vol] 16 mg/dL 7-18 [facility] Thin prep Papanicolaou smear with manual screeningOrdered By: Jonathan Lopez on 09-20-2023 Thin prep Papanicolaou smear with manual screening 5 5-15 [facility] Urine Legionella pneumophila antigen detectionOrdered By: Drake Mason on 09-20-2023 L. pneumophila Ag Ql (U) [facility] L. pneumophila Ag Ql (U) [facility] Basophil percentageOrdered B y: Juany Bellamy on 09-16-2023 Basophil percentage 2.4 mg/dL 2.5-4.9 [facility] Basophil percentage 170 mg/dL 74-106 [facility] Basophil percentage 140 mmol/L 136-145 [facility] Basophil percentage 3.6 mmol/L 3.5-5.1 [facility] Basophil percentage 107 mmol/L 98-107 [facility] Chloride [Moles/Vol] 107 mmol/L 98-107 [facility] Glucose [Mass/Vol] 170 mg/dL 74-106 [facility] Comment on above: Fasting Glucose resu lt greater than or equal to 126 mg/dL suggests DIABETES MELLITUS per A.D.A. criteria. Potassium [Moles/Vol] 3.6 mmol/L 3.5-5.1 [facility] Sodium [Moles/Vol] 140 mmol/L 136-145 [facility] Laboratory - Chemistry and C hemistry - challengeOrdered By: Juany Bellamy on 09-16-2023 CO2 [Moles/Vol] 27.0 mmol/L 21.0-32.0 [facility] Urea nitrogen/Creatinine [Mass ratio] 14.6 mg/mg 10-20 [facility] No Panel InformationOrdered By: Juany Bellamy on 09-16-2023 Estimated GFR (MDRD) Amer 69 mL/min >60 [facility] Comment on above: GFR Calc Estimated GFR (MDRD) Non-Af Amer 57 mL/min >60 [facility] Comment on above: Non- GFR Calc 57 mL/min >60 [facility] 69 mL/min >60 [facility] 14.6 RATIO 07-19 [facility] 27.0 mmol/L 21.0-32.0 [facility] Serum or plasma albumin amanda urement (mass/volume)Ordered By: Juany Bellamy on 09-16-2023 Albumin [Mass/Vol] 2.7 g/dL 3.2-5.0 [facility] Serum or plasma calcium amanda urement (mass/volume)Ordered By: Juany Bellamy on 09-16-2023 Calcium [Mass/Vol] 7.9 mg/dL 8.5-10.1 [facility] Serum or plasma creatinine m easurement (mass/volume)Ordered By: Juany Bellamy on 09-16-2023 Creatinine [Mass/Vol] 1.30 mg/dL 0.70-1.30 [facility] Comment on above: The validity of the calculated GFR & GFRAA in patients over 70 years has not been determined. Clinical correlation is essential. Serum or plasma urea nitroge n measurement (mass/volume)Ordered By: Juany Bellamy on 09-16-2023 Urea nitrogen [Mass/Vol] 19 mg/dL 04-16 [facility] Urine creatinine measurement (mass/volume)Ordered By: Juany Bellamy on 09-16-2023 Creatinine (U) [Mass/Vol] 111.00 mg/dL NO RANGE EST. [facility] Urine protein measurement (m ass/volume)Ordered By: Juany Bellamy on 09-16-2023 Protein (U) [Mass/Vol] 63.7 mg/dL 0.0-11.8 [facility] Urine protein/creatinine mas s ratioOrdered By: Juany Bellamy on 09-16-2023 Protein/Creatinine (U) [Mass ratio] 574 mg/g CRE 0-200 [facility] Absolute lymphocyte countOrd ered By: Laureano Lima on 09-05-2023 Lymphocytes Auto (Unsp spec) [#/Vol] 1.22 10*3/uL 0.83-4.51 [facility] Basophil percentageOrdered B y: Laureano Lima on 09-05-2023 Basophil percentage 4.8 mg/dL 2.5-4.9 [facility] Basophil percentage 199 mg/dL 74-106 [facility] Basophil percentage 139 mmol/L 136-145 [facility] Basophil percentage 3.7 mmol/L 3.5-5.1 [facility] Basophil percentage 105 mmol/L 98-107 [facility] Basophils (Bld) [#/Vol] 7.3 10*3/uL 4.4-11.0 [facility] Basophils (Bld) [#/Vol] 5.7 10*3/uL 2.0-7.7 [facility] Basophils/100 WBC (Bld) 0.1 % 0-1 [facility] Basophils/100 WBC (Bld) 77.9 % 47-70 [facility] Basophils/100 WBC (Bld) 0.0 % 0-5 [facility] Chloride [Moles/Vol] 105 mmol/L 98-107 [facility] Eosinophils/100 WBC (Bld) 0.0 % 0-5 [facility] Glucose [Mass/Vol] 199 mg/dL 74-106 [facility] Comment on above: Fasting Glucose resu lt greater than or equal to 126 mg/dL suggests DIABETES MELLITUS per A.D.A. criteria. Neutrophils (Bld) [#/Vol] 5.7 10*3/uL 2.0-7.7 [facility] Neutrophils/100 WBC (Bld) 77.9 % 47-70 [facility] Potassium [Moles/Vol] 3.7 mmol/L 3.5-5.1 [facility] Comment on above: Slight Hemolysis, Re sult may be falsely increased. Sodium [Moles/Vol] 139 mmol/L 136-145 [facility] WBC (Bld) [#/Vol] 7.3 10*3/uL 4.4-11.0 [facility] Blood erythrocytes count (nu mber/volume)Ordered By: Laureano Lima on 09-05-2023 RBC (Bld) [#/Vol] 4.22 10*6/uL 4.6-6.2 [facility] Blood hemoglobin measurement (mass/volume)Ordered By: Laureano Lima on 09-05-2023 Hemoglobin (Bld) [Mass/Vol] 12.7 g/dL 13.0-16.5 [facility] Blood lymphocytes/100 leukoc ytesOrdered By: Laureano Lima on 09-05-2023 Lymphocytes/100 WBC (Bld) 16.7 % 19-41 [facility] Blood monocytes/100 leukocyt esOrdered By: Laureano Lima on 09-05-2023 Monocytes/100 WBC (Bld) 4.6 % 0-10 [facility] Blood platelet mean volumeOr dered By: Laureano Lima on 09-05-2023 Platelet mean volume (Bld) [Entitic vol] 10.9 fL 6.2-12.0 [facility] Determination of erythrocyte mean corpuscular volume (MCV)Ordered By: Laureano Lima on 09-05-2023 MCV (RBC) [Entitic vol] 91.0 fL 80-94 [facility] Glucose Glucometer (dC) [M ass/Vol]Ordered By: Laureano Lima on 09-05-2023 Glucose [Mass/Vol] 188 mg/dL 74-106 [facility] Comment on above: MANAGEMENT OF PATIEN T CARE PER NURSING PROTOCOL Hematocrit Auto (Bld) [Volum e fraction]Ordered By: Laureano Lima on 09-05-2023 Hematocrit (Bld) [Volume fraction] 38.4 % 40-54 [facility] Laboratory - Chemistry and C hemistry - challengeOrdered By: Laureano Lima on 09-05-2023 CO2 [Moles/Vol] 27.0 mmol/L 21.0-32.0 [facility] Magnesium [Mass/Vol] 2.1 mg/dL 1.6-2.6 [facility] Comment on above: Slight Hemolysis, Re sult may be falsely increased. Urea nitrogen/Creatinine [Mass ratio] 23.4 mg/mg 10-20 [facility] Laboratory - Hematology and Cell countsOrdered By: Laureano Lima on 09-05-2023 Erythrocyte distribution width (RBC) [Entitic vol] 49.4 fL 35.1-43.9 [facility] Erythrocyte distribution width (RBC) [Ratio] 14.8 % 11.6-14.6 [facility] Immature granulocytes/100 WBC (Bld) 0.700 % 0.0-0.9 [facility] Comment on above: IG% - Immature Granu locytes (promyelocytes, myelocytes and metamyelocytes) > 1% indicates that a LEFT SHIFT is Present. MCH (RBC) [Entitic mass] 30.1 pg 27.0-32.0 [facility] Nucleated RBC/100 WBC (Bld) [Ratio] 0 % 0-5 [facility] MCHC Auto (RBC) [Mass/Vol]Or dered By: Laureano Lima on 09-05-2023 MCHC (RBC) [Mass/Vol] 33.1 g/dL 32-36 [facility] No Panel InformationOrdered By: Laureano Lima on 09-05-2023 Estimated Creatinine Clearance Calc 36.36 ml/min [facility] Estimated GFR (MDRD) Amer 56 mL/min >60 [facility] Comment on above: GFR Calc Estimated GFR (MDRD) Non-Af Amer 47 mL/min >60 [facility] Comment on above: Non- GFR Calc 30.1 pg 27.0-32.0 [facility] 14.8 % 11.6-14.6 [facility] 49.4 fl 35.1-43.9 [facility] 0.700 % 0.0-0.9 [facility] 0 % 0-5 [facility] 47 mL/min >60 [facility] 56 mL/min >60 [facility] 36.36 ml/min [facility] 23.4 RATIO 10-20 [facility] 2.1 mg/dL 1.6-2.6 [facility] 27.0 mmol/L 21.0-32.0 [facility] Platelets bldOrdered By: Linwood Lima on 09-05-2023 Platelets (Bld) [#/Vol] 192 10*3/uL 150-450 [facility] Serum or plasma calcium amanda urement (mass/volume)Ordered By: Laureano Lima on 09-05-2023 Calcium [Mass/Vol] 8.6 mg/dL 8.5-10.1 [facility] Serum or plasma creatinine m easurement (mass/volume)Ordered By: Laureano Lima on 09-05-2023 Creatinine [Mass/Vol] 1.54 mg/dL 0.70-1.30 [facility] Comment on above: The validity of the calculated GFR & GFRAA in patients over 70 years has not been determined. Clinical correlation is essential. Serum or plasma urea nitroge n measurement (mass/volume)Ordered By: Laureano Lima on 09-05-2023 Urea nitrogen [Mass/Vol] 36 mg/dL 7-18 [facility] Thin prep Papanicolaou smear with manual screeningOrdered By: Laureano Lima on 09-05-2023 Thin prep Papanicolaou smear with manual screening 7 5-15 [facility] Assessment of wrist artery p atency prior to arterial punctureOrdered By: Mauricio Soto on 09-04-2023 Arterial patency Wrist artery --pre arterial puncture Positive [facility] Base excessOrdered By: Margaret Soto on 09-04-2023 Base excess Calc (BldV) [Moles/Vol] 2 mmol/L -2-2 [facility] Basophil percentageOrdered B y: Mauricio Soto on 09-04-2023 Basophil percentage 26.1 mmol/L 22-26 [facility] Basophils/100 WBC (Bld) 89 % 95-99 [facility] CO2 (BldA) [Partial pressure ]Ordered By: Mauricio Soto on 09-04-2023 CO2 (Bld) [Partial pressure] 38.2 mm[Hg] 35-45 [facility] No Panel InformationOrdered By: Mauricio Soto on 09-04-2023 Blood Gas Oxygen Percent 21.0 [facility] Blood Gas Sample Site L Radial [facility] Blood Gas Specimen Type ART [facility] Blood Gas Total CO2 27 mmol/L [facility] Blood Gas Vent Mode Not entered [facility] Oxygen Delivery Device Room Air [facility] L Radial [facility] Not entered [facility] Room Air [facility] 21.0 [facility] 27 mmol/L [facility] Oxygen (BldA) [Partial press ure]Ordered By: Mauricio Soto on 09-04-2023 Oxygen (Bld) [Partial pressure] 55 mmHG 75-100 [facility] Whole blood hemoglobin A1c/t otal hemoglobin ratio (mass fraction)Ordered By: Laureano Jennings on 09-04-2023 HbA1c (Bld) [Mass fraction] 6.5 % 3.8-5.6 [facility] Comment on above: Normal < 5.7 % Predi abetic 5.7 - 6.4 % Diabetic >or= 6.5 % Please note range changes. pH measurementOrdered By: Zunilda Soto on 09-04-2023 pH (Unsp spec) 7.44 [pH] 7.35-7.45 [facility] Absolute lymphocyte countOrd ered By: Mauricio Soto on 09-03-2023 Lymphocytes Auto (Unsp spec) [#/Vol] 1.35 10*3/uL 0.83-4.51 [facility] Basophil percentageOrdered B y: Mauricio Soto on 09-03-2023 Basophils/100 WBC (Bld) 0.4 % 0-1 [facility] Chloride [Moles/Vol] 105 mmol/L 98-107 [facility] Eosinophils/100 WBC (Bld) 0.0 % 0-5 [facility] Glucose [Mass/Vol] 184 mg/dL 74-106 [facility] Comment on above: Fasting Glucose resu lt greater than or equal to 126 mg/dL suggests DIABETES MELLITUS per A.D.A. criteria. Neutrophils (Bld) [#/Vol] 3.2 10*3/uL 2.0-7.7 [facility] Neutrophils/100 WBC (Bld) 60.4 % 47-70 [facility] Potassium [Moles/Vol] 3.7 mmol/L 3.5-5.1 [facility] Sodium [Moles/Vol] 138 mmol/L 136-145 [facility] WBC (Bld) [#/Vol] 5.3 10*3/uL 4.4-11.0 [facility] Blood erythrocytes count (nu mber/volume)Ordered By: Mauricio Soto on 09-03-2023 RBC (Bld) [#/Vol] 4.25 10*6/uL 4.6-6.2 [facility] Blood hemoglobin measurement (mass/volume)Ordered By: Mauricio Soto on 09-03-2023 Hemoglobin (Bld) [Mass/Vol] 12.9 g/dL 13.0-16.5 [facility] Blood lymphocytes/100 leukoc ytesOrdered By: Mauricio Soto on 09-03-2023 Lymphocytes/100 WBC (Bld) 25.6 % 19-41 [facility] Blood monocytes/100 leukocyt esOrdered By: Mauricio Soto on 09-03-2023 Monocytes/100 WBC (Bld) 11.9 % 0-10 [facility] Blood platelet mean volumeOr dered By: Mauricio Soto on 09-03-2023 Platelet mean volume (Bld) [Entitic vol] 11.1 fL 6.2-12.0 [facility] Determination of erythrocyte mean corpuscular volume (MCV)Ordered By: Mauricio Soto on 09-03-2023 MCV (RBC) [Entitic vol] 92.0 fL 80-94 [facility] Hematocrit Auto (Bld) [Volum e fraction]Ordered By: Mauricio Soto on 09-03-2023 Hematocrit (Bld) [Volume fraction] 39.1 % 40-54 [facility] Influenza virus A and B and SARS-CoV-2 (COVID-19) Ag panel - Upper respiratory specimOrdered By: Mauricio Soto on 09-03-2023 SARS-CoV-2 & FLU Antigen (Rapid) SARS-CoV-2 (COVID 19) [facility] Influenza virus A and B and SARS-CoV-2 (COVID-19) Ag panel - Upper respiratory specim SARS-CoV-2 (COVID 19) [facility] - Chemistry and C hemistry - challengeOrdered By: Mauricio Soto on 09-03-2023 CO2 [Moles/Vol] 26.0 mmol/L 21.0-32.0 [facility] Magnesium [Mass/Vol] 2.2 mg/dL 1.6-2.6 [facility] Natriuretic peptide B (Bld) [Mass/Vol] 65.2 pg/mL 0-100 [facility] Urea nitrogen/Creatinine [Mass ratio] 15.7 mg/mg 10-20 [facility] - Hematology and Cell countsOrdered By: Mauricio Soto on 09-03-2023 Erythrocyte distribution width (RBC) [Entitic vol] 50.4 fL 35.1-43.9 [facility] Erythrocyte distribution width (RBC) [Ratio] 14.8 % 11.6-14.6 [facility] Immature granulocytes/100 WBC (Bld) 1.700 % 0.0-0.9 [facility] Comment on above: IG% - Immature Granu locytes (promyelocytes, myelocytes and metamyelocytes) > 1% indicates that a LEFT SHIFT is Present. MCH (RBC) [Entitic mass] 30.4 pg 27.0-32.0 [facility] Nucleated RBC/100 WBC (Bld) [Ratio] 0 % 0-5 [facility] MCHC Auto (RBC) [Mass/Vol]Or dered By: Mauricio Soto on 09-03-2023 MCHC (RBC) [Mass/Vol] 33.0 g/dL 32-36 [facility] No Panel InformationOrdered By: Mauricio Soto on 09-03-2023 Estimated Creatinine Clearance Calc 35.33 ml/min [facility] Estimated GFR (MDRD) Amer 57 mL/min >60 [facility] Comment on above: GFR Calc Estimated GFR (MDRD) Non-Af Amer 47 mL/min >60 [facility] Comment on above: Non- GFR Calc 65.2 pg/mL 0-100 [facility] Platelets bldOrdered By: Mina Soto on 09-03-2023 Platelets (Bld) [#/Vol] 191 10*3/uL 150-450 [facility] Serum or plasma calcium amanda urement (mass/volume)Ordered By: Mauricio Soto on 09-03-2023 Calcium [Mass/Vol] 8.8 mg/dL 8.5-10.1 [facility] Serum or plasma creatinine m easurement (mass/volume)Ordered By: Mauricio Soto on 09-03-2023 Creatinine [Mass/Vol] 1.53 mg/dL 0.70-1.30 [facility] Comment on above: The validity of the calculated GFR & GFRAA in patients over 70 years has not been determined. Clinical correlation is essential. Serum or plasma urea nitroge n measurement (mass/volume)Ordered By: Mauricio Soto on 09-03-2023 Urea nitrogen [Mass/Vol] 24 mg/dL 7-18 [facility] Thin prep Papanicolaou smear with manual screeningOrdered By: Mauricio Soto on 09-03-2023 Thin prep Papanicolaou smear with manual screening 7 5-15 [facility] Upper respiratory specimen i nfluenza A virus, influenza B virus, and severe acute resOrdered By: Mauricio Soto on 09-03-2023 Upper respiratory specimen influenza A virus, influenza B virus, and severe acute res SARS-CoV-2 (COVID 19) [facility] Basophil percentageOrdered B y: Keo Montemayor on 08-29-2023 Basophil percentage < 1.0 mg/dL 0.70-1.30 [facility] No Panel InformationOrdered By: Keo Montemayor on 08-29-2023 Bedside Estimated GFR (eGFR) > 60.0000 mL/min >60 [facility] > 60.0000 mL/min >60 [facility] Glucose Glucometer (BldC) [M ass/Vol]Ordered By: Surinder Larson on 08-07-2023 Glucose [Mass/Vol] 110 mg/dL 74-106 [facility] Comment on above: MANAGEMENT OF PATIEN T CARE PER NURSING PROTOCOL Basophil percentageOrdered B y: Surinder Larson on 05-30-2023 Basophil percentage 1.3 mg/dL 0.70-1.30 [facility] Creatinine [Mass/Vol] 1.3 mg/dL 0.70-1.30 [facility] Laboratory - Chemistry and C hemistry - challengeOrdered By: Surinder Larson on 05-30-2023 GFR/1.73 sq M.predicted among non-blacks MDRD (S/P/Bld) [Vol rate/Area] 56.0000 mL/min/{1.73_m2} >60 [facility] No Panel InformationOrdered By: Surinder Larson on 05-30-2023 56.0000 mL/min >60 [facility] No Panel InformationOrdered By: Surinder Larson on 04-16-2023 Prostate Specific Antigen Total 11.30 ng/mL 0.0-4.0 [facility] Comment on above: This test was perfor med using the TPSA assay method for the[employer]ator[employer] chemistry system. Values obtained with differentassay methods cannot be used interchangably.When changing PSA assays in the course of monitoring apatient, additional sequential testing should be carriedout to confirm baseline values. Absolute lymphocyte countOrd ered By: Marycruz Yen on 04-01-2023 Lymphocytes Auto (Unsp spec) [#/Vol] 1.48 10*3/uL 0.83-4.51 [facility] Basophil percentageOrdered B y: Marycruz Yen on 04-01-2023 Basophils/100 WBC (Bld) 0.1 % 0-1 [facility] Bilirubin [Mass/Vol] 0.30 mg/dL 0.20-1.00 [facility] Comment on above: For patients on eltr ombopag therapy, use of Dimension [place] TBIL is not recommended. Chloride [Moles/Vol] 109 mmol/L 98-107 [facility] Eosinophils/100 WBC (Bld) 2.4 % 0-5 [facility] Glucose [Mass/Vol] 181 mg/dL 74-106 [facility] Comment on above: Fasting Glucose resu lt greater than or equal to 126 mg/dL suggests DIABETES MELLITUS per A.D.A. criteria. Neutrophils (Bld) [#/Vol] 4.8 10*3/uL 2.0-7.7 [facility] Neutrophils/100 WBC (Bld) 66.9 % 47-70 [facility] Potassium [Moles/Vol] 3.7 mmol/L 3.5-5.1 [facility] Protein [Mass/Vol] 6.5 g/dL 6.4-8.2 [facility] Sodium [Moles/Vol] 140 mmol/L 136-145 [facility] WBC (Bld) [#/Vol] 7.1 10*3/uL 4.4-11.0 [facility] Blood erythrocytes count (nu mber/volume)Ordered By: Marycruz Yen on 04-01-2023 RBC (Bld) [#/Vol] 4.27 10*6/uL 4.6-6.2 [facility] Blood hemoglobin measurement (mass/volume)Ordered By: Marycruz Yen on 04-01-2023 Hemoglobin (Bld) [Mass/Vol] 13.0 g/dL 13.0-16.5 [facility] Blood lymphocytes/100 leukoc ytesOrdered By: Marycruz Yen on 04-01-2023 Lymphocytes/100 WBC (Bld) 20.8 % 19-41 [facility] Blood monocytes/100 leukocyt esOrdered By: Marycruz Yen on 04-01-2023 Monocytes/100 WBC (Bld) 9.4 % 0-10 [facility] Blood platelet mean volumeOr dered By: Marycruz Yen on 04-01-2023 Platelet mean volume (Bld) [Entitic vol] 11.5 fL 6.2-12.0 [facility] Determination of erythrocyte mean corpuscular volume (MCV)Ordered By: Marycruz Yen on 04-01-2023 MCV (RBC) [Entitic vol] 94.8 fL 80-94 [facility] Hematocrit Auto (Bld) [Volum e fraction]Ordered By: Marycruz Yen on 04-01-2023 Hematocrit (Bld) [Volume fraction] 40.5 % 40-54 [facility] - Chemistry and C hemistry - challengeOrdered By: [facility] Farshad on 04-01-2023 ALP [Catalytic activity/Vol] 48 U/L 45-117 [facility] ALT [Catalytic activity/Vol] 69 U/L 16-61 [facility] CO2 [Moles/Vol] 26.0 mmol/L 21.0-32.0 [facility] Globulin (S) [Mass/Vol] 3.6 g/dL 2.2-4.2 [facility] Urea nitrogen/Creatinine [Mass ratio] 17.7 mg/mg 10-20 [facility] - Hematology and Cell countsOrdered By: Marycruz Yen on 04-01-2023 Erythrocyte distribution width (RBC) [Entitic vol] 55.5 fL 35.1-43.9 [facility] Erythrocyte distribution width (RBC) [Ratio] 16.0 % 11.6-14.6 [facility] Immature granulocytes/100 WBC (Bld) 0.400 % 0.0-0.9 [facility] Comment on above: IG% - Immature Granu locytes (promyelocytes, myelocytes and metamyelocytes) > 1% indicates that a LEFT SHIFT is Present. MCH (RBC) [Entitic mass] 30.4 pg 27.0-32.0 [facility] Nucleated RBC/100 WBC (Bld) [Ratio] 0 % 0-5 [facility] MCHC Auto (RBC) [Mass/Vol]Or dered By: Marycruz Yen on 04-01-2023 MCHC (RBC) [Mass/Vol] 32.1 g/dL 32-36 [facility] No Panel InformationOrdered By: Marycruz Yen on 04-01-2023 Estimated GFR (MDRD) Amer 60 mL/min >60 [facility] Comment on above: GFR Calc Estimated GFR (MDRD) Non-Af Amer 49 mL/min >60 [facility] Comment on above: Non- GFR Calc Platelets bldOrdered By: Jamir Yen on 04-01-2023 Platelets (Bld) [#/Vol] 150 10*3/uL 150-450 [facility] Serum or plasma albumin amanda urement (mass/volume)Ordered By: Marycruz Yen on 04-01-2023 Albumin [Mass/Vol] 2.9 g/dL 3.2-5.0 [facility] Serum or plasma albumin/glob ulin mass ratioOrdered By: Marycruz Yen on 04-01-2023 Albumin/Globulin [Mass ratio] 0.8 {ratio} 0.9-2.4 [facility] Serum or plasma calcium amanda urement (mass/volume)Ordered By: Marycruz Yen on 04-01-2023 Calcium [Mass/Vol] 8.5 mg/dL 8.5-10.1 [facility] Serum or plasma creatinine m easurement (mass/volume)Ordered By: Marycruz Yen on 04-01-2023 Creatinine [Mass/Vol] 1.47 mg/dL 0.70-1.30 [facility] Comment on above: The validity of the calculated GFR & GFRAA in patients over 70 years has not been determined. Clinical correlation is essential. Serum or plasma urea nitroge n measurement (mass/volume)Ordered By: Marycruz Yen on 04-01-2023 Urea nitrogen [Mass/Vol] 26 mg/dL 7-18 [facility] Serum or plasma uric acid me asurement (mass/volume)Ordered By: Marycruz Yen on 04-01-2023 Urate [Mass/Vol] 5.0 mg/dL 3.5-7.2 [facility] Comment on above: The drugs N-Acetylcy steine and Metamizole may falsely depress this assay. Thin prep Papanicolaou smear with manual screeningOrdered By: Marycruz Yen on 04-01-2023 Thin prep Papanicolaou smear with manual screening 23 U/L 15-37 [facility] Thin prep Papanicolaou smear with manual screening 5 5-15 [facility] Absolute lymphocyte countOrd ered By: Dr. Bojorquez on 03-26-2023 Lymphocytes Auto (Unsp spec) [#/Vol] 1.79 10*3/uL 0.83-4.51 [facility] Basophil percentageOrdered B y: Dr. Bojorquez on 03-26-2023 Basophils/100 WBC (Bld) 0.1 % 0-1 [facility] Chloride [Moles/Vol] 109 mmol/L 98-107 [facility] Eosinophils/100 WBC (Bld) 0.0 % 0-5 [facility] Glucose [Mass/Vol] 151 mg/dL 74-106 [facility] Comment on above: Fasting Glucose resu lt greater than or equal to 126 mg/dL suggests DIABETES MELLITUS per A.D.A. criteria. Neutrophils (Bld) [#/Vol] 8.2 10*3/uL 2.0-7.7 [facility] Neutrophils/100 WBC (Bld) 76.0 % 47-70 [facility] Potassium [Moles/Vol] 3.3 mmol/L 3.5-5.1 [facility] Sodium [Moles/Vol] 141 mmol/L 136-145 [facility] WBC (Bld) [#/Vol] 10.7 10*3/uL 4.4-11.0 [facility] Blood erythrocytes count (nu mber/volume)Ordered By: Dr. Bojorquez on 03-26-2023 RBC (Bld) [#/Vol] 4.15 10*6/uL 4.6-6.2 [facility] Blood hemoglobin measurement (mass/volume)Ordered By: Dr. Bojorquez on 03-26-2023 Hemoglobin (Bld) [Mass/Vol] 12.8 g/dL 13.0-16.5 [facility] Blood lymphocytes/100 leukoc ytesOrdered By: Dr. Bojorquez on 03-26-2023 Lymphocytes/100 WBC (Bld) 16.7 % 19-41 [facility] Blood monocytes/100 leukocyt esOrdered By: Dr. Bojorquez on 03-26-2023 Monocytes/100 WBC (Bld) 6.8 % 0-10 [facility] Blood platelet mean volumeOr dered By: Dr. Bojorquez on 03-26-2023 Platelet mean volume (Bld) [Entitic vol] 10.0 fL 6.2-12.0 [facility] Determination of erythrocyte mean corpuscular volume (MCV)Ordered By: Dr. Bojorquez on 03-26-2023 MCV (RBC) [Entitic vol] 91.6 fL 80-94 [facility] Glucose Glucometer (dC) [M ass/Vol]Ordered By: Dr. Bojorquez on 03-26-2023 Glucose [Mass/Vol] 185 mg/dL 74-106 [facility] Comment on above: MANAGEMENT OF PATIEN T CARE PER NURSING PROTOCOL Hematocrit Auto (Bld) [Volum e fraction]Ordered By: Dr. Bojorquez on 03-26-2023 Hematocrit (Bld) [Volume fraction] 38.0 % 40-54 [facility] - Chemistry and C hemistry - challengeOrdered By: Dr. Bojorquez on 03-26-2023 CO2 [Moles/Vol] 26.0 mmol/L 21.0-32.0 [facility] Urea nitrogen/Creatinine [Mass ratio] 27.1 mg/mg 10-20 [facility] - Hematology and Cell countsOrdered By: Dr. Bojorquez on 03-26-2023 Erythrocyte distribution width (RBC) [Entitic vol] 50.9 fL 35.1-43.9 [facility] Erythrocyte distribution width (RBC) [Ratio] 15.3 % 11.6-14.6 [facility] Immature granulocytes/100 WBC (Bld) 0.400 % 0.0-0.9 [facility] Comment on above: IG% - Immature Granu locytes (promyelocytes, myelocytes and metamyelocytes) > 1% indicates that a LEFT SHIFT is Present. MCH (RBC) [Entitic mass] 30.8 pg 27.0-32.0 [facility] Nucleated RBC/100 WBC (Bld) [Ratio] 0 % 0-5 [facility] MCHC Auto (RBC) [Mass/Vol]Or dered By: Dr. Bojorquez on 03-26-2023 MCHC (RBC) [Mass/Vol] 33.7 g/dL 32-36 [facility] No Panel InformationOrdered By: Dr. Bojorquez on 03-26-2023 Estimated Creatinine Clearance Calc 36.72 ml/min [facility] Estimated GFR (MDRD) Amer 56 mL/min >60 [facility] Comment on above: GFR Calc Estimated GFR (MDRD) Non-Af Amer 46 mL/min >60 [facility] Comment on above: Non- GFR Calc Platelets bldOrdered By: Dr. Bojorquez on 03-26-2023 Platelets (Bld) [#/Vol] 182 10*3/uL 150-450 [facility] Serum or plasma calcium amanda urement (mass/volume)Ordered By: Dr. Bojorquez on 03-26-2023 Calcium [Mass/Vol] 8.5 mg/dL 8.5-10.1 [facility] Serum or plasma creatinine m easurement (mass/volume)Ordered By: Dr. Bojorquez on 03-26-2023 Creatinine [Mass/Vol] 1.55 mg/dL 0.70-1.30 [facility] Comment on above: The validity of the calculated GFR & GFRAA in patients over 70 years has not been determined. Clinical correlation is essential. Serum or plasma urea nitroge n measurement (mass/volume)Ordered By: Dr. Bojorquez on 03-26-2023 Urea nitrogen [Mass/Vol] 42 mg/dL 7-18 [facility] Thin prep Papanicolaou smear with manual screeningOrdered By: Dr. Bojorquez on 03-26-2023 Thin prep Papanicolaou smear with manual screening 6 5-15 [facility] Vancomycin troughOrdered By: Dr. Ferreira on 03-23-2023 Vancomycin trough [Mass/Vol] 14.3 ug/mL 5.0-15.0 [facility] Comment on above: VANCOMYCIN STANDARED DRUG THERAPY TROUGH LEVEL: 5.0 - 15.0 mg/L VANCOMYCIN HIGH INTENSITY THERAPY TROUGH LEVEL: 15.0 - 20.0 mg/L High Intensity therapy recommended for serious lifethreatening infections include:- Azprpjfhqx-Nksuikwzfxha-Ayogxlnvh (Ventilator/Healtcare Associated)-Sepsis PLEASE CONTACT PHARMACY SERVICES (#1609) FOR INTERPRETATIONOF RESULTS. Gram stain for investigation of transfusion reactionOrdered By: Dr. Ferreira on 03-22-2023 Microscopic observation Gram stain Nom (Unsp spec) [facility] No Panel InformationOrdered By: Dr. Ferreira on 03-22-2023 Methicillin-Resist S.aureus DNA PCR Negative Negative [facility] Respiratory pathogens detect ion panel by molecular detection methodOrdered By: Dr. Ferreira on 03-22-2023 Respiratory pathogens DNA and RNA panel IRINA+probe (Resp) [facility] Bacteria identified Respirat ory culture Nom (Unsp spec)Ordered By: Pedro Ferreira on 03-21-2023 Respiratory Culture Pseudomonas aeruginosa [facility] Gram stain for investigation of transfusion reactionOrdered By: Pedro Ferreira on 03-21-2023 Microscopic observation Gram stain Nom (Unsp spec) [facility] - Chemistry and C hemistry - challengeOrdered By: Dr. Sullivan on 03-21-2023 Natriuretic peptide B (Bld) [Mass/Vol] 118.7 pg/mL 0-100 [facility] No Panel InformationOrdered By: Pedro Ferreira on 03-21-2023 Streptococcus pneumoniae Antigen (M [facility] No Panel InformationOrdered By: Dr. Sullivan on 03-21-2023 Troponin I High Sensitivity 22 pg/mL 3.0-78.0 [facility] Comment on above: Please Note: New Vira t Units and Gender Specific Reference Ranges. For more information see Policy Stat Procedure [place] High Sensitivity Troponin (TNIH) and attachments. No Panel InformationOrdered By: Dr. Ferreira on 03-21-2023 Streptococcus pneumoniae Antigen (M [facility] Respiratory pathogens detect ion panel by molecular detection methodOrdered By: Pedro Ferreira on 03-21-2023 Respiratory pathogens DNA and RNA panel IRINA+probe (Resp) [facility] Absolute lymphocyte countOrd ered By: Dr. Yen on 01-03-2023 Lymphocytes Auto (Unsp spec) [#/Vol] 2.62 10*3/uL 0.83-4.51 [facility] Basophil percentageOrdered B y: Dr. Yen on 01-03-2023 Basophils/100 WBC (Bld) 0.6 % 0-1 [facility] Bilirubin [Mass/Vol] 0.50 mg/dL 0.20-1.00 [facility] Comment on above: For patients on eltr ombopag therapy, use of Dimension [place] TBIL is not recommended. Chloride [Moles/Vol] 109 mmol/L 98-107 [facility] Eosinophils/100 WBC (Bld) 4.2 % 0-5 [facility] Glucose [Mass/Vol] 138 mg/dL 74-106 [facility] Comment on above: Fasting Glucose resu lt greater than or equal to 126 mg/dL suggests DIABETES MELLITUS per A.D.A. criteria. Neutrophils (Bld) [#/Vol] 2.9 10*3/uL 2.0-7.7 [facility] Neutrophils/100 WBC (Bld) 44.7 % 47-70 [facility] Potassium [Moles/Vol] 3.6 mmol/L 3.5-5.1 [facility] Protein [Mass/Vol] 7.0 g/dL 6.4-8.2 [facility] Sodium [Moles/Vol] 142 mmol/L 136-145 [facility] WBC (Bld) [#/Vol] 6.5 10*3/uL 4.4-11.0 [facility] Blood erythrocytes count (nu mber/volume)Ordered By: Dr. Yen on 01-03-2023 RBC (Bld) [#/Vol] 4.04 10*6/uL 4.6-6.2 [facility] Blood hemoglobin measurement (mass/volume)Ordered By: Dr. Yen on 01-03-2023 Hemoglobin (Bld) [Mass/Vol] 12.9 g/dL 13.0-16.5 [facility] Blood lymphocytes/100 leukoc ytesOrdered By: Dr. Yen on 01-03-2023 Lymphocytes/100 WBC (Bld) 40.5 % 19-41 [facility] Blood monocytes/100 leukocyt esOrdered By: Dr. Yen on 01-03-2023 Monocytes/100 WBC (Bld) 9.7 % 0-10 [facility] Blood platelet mean volumeOr dered By: Dr. Yen on 01-03-2023 Platelet mean volume (Bld) [Entitic vol] 10.9 fL 6.2-12.0 [facility] Determination of erythrocyte mean corpuscular volume (MCV)Ordered By: Dr. Yen on 01-03-2023 MCV (RBC) [Entitic vol] 95.3 fL 80-94 [facility] Hematocrit Auto (Bld) [Volum e fraction]Ordered By: Dr. Yen on 01-03-2023 Hematocrit (Bld) [Volume fraction] 38.5 % 40-54 [facility] - Chemistry and C hemistry - challengeOrdered By: Dr. Yen on 01-03-2023 ALP [Catalytic activity/Vol] 52 U/L 45-117 [facility] ALT [Catalytic activity/Vol] 39 U/L 16-61 [facility] CO2 [Moles/Vol] 26.0 mmol/L 21.0-32.0 [facility] Globulin (S) [Mass/Vol] 3.5 g/dL 2.2-4.2 [facility] Urea nitrogen/Creatinine [Mass ratio] 12.6 mg/mg 10-20 [facility] - Hematology and Cell countsOrdered By: Dr. Yen on 01-03-2023 Erythrocyte distribution width (RBC) [Entitic vol] 56.0 fL 35.1-43.9 [facility] Erythrocyte distribution width (RBC) [Ratio] 15.9 % 11.6-14.6 [facility] Immature granulocytes/100 WBC (Bld) 0.300 % 0.0-0.9 [facility] Comment on above: IG% - Immature Granu locytes (promyelocytes, myelocytes and metamyelocytes) > 1% indicates that a LEFT SHIFT is Present. MCH (RBC) [Entitic mass] 31.9 pg 27.0-32.0 [facility] Nucleated RBC/100 WBC (Bld) [Ratio] 0 % 0-5 [facility] MCHC Auto (RBC) [Mass/Vol]Or dered By: Dr. Yen on 01-03-2023 MCHC (RBC) [Mass/Vol] 33.5 g/dL 32-36 [facility] No Panel InformationOrdered By: Dr. Yen on 01-03-2023 Estimated GFR (MDRD) Amer 54 mL/min >60 [facility] Comment on above: GFR Calc Estimated GFR (MDRD) Non-Af Amer 45 mL/min >60 [facility] Comment on above: Non- GFR Calc Platelets bldOrdered By: Dr. Yen on 01-03-2023 Platelets (Bld) [#/Vol] 174 10*3/uL 150-450 [facility] Serum or plasma albumin amanda urement (mass/volume)Ordered By: Dr. Yen on 01-03-2023 Albumin [Mass/Vol] 3.5 g/dL 3.2-5.0 [facility] Serum or plasma albumin/glob ulin mass ratioOrdered By: Dr. Yen on 01-03-2023 Albumin/Globulin [Mass ratio] 1.0 {ratio} 0.9-2.4 [facility] Serum or plasma calcium amanda urement (mass/volume)Ordered By: Dr. eYn on 01-03-2023 Calcium [Mass/Vol] 8.8 mg/dL 8.5-10.1 [facility] Serum or plasma creatinine m easurement (mass/volume)Ordered By: Dr. Yen on 01-03-2023 Creatinine [Mass/Vol] 1.59 mg/dL 0.70-1.30 [facility] Comment on above: The validity of the calculated GFR & GFRAA in patients over 70 years has not been determined. Clinical correlation is essential. Serum or plasma urea nitroge n measurement (mass/volume)Ordered By: Dr. Yen on 01-03-2023 Urea nitrogen [Mass/Vol] 20 mg/dL 7-18 [facility] Serum or plasma uric acid me asurement (mass/volume)Ordered By: Dr. Yen on 01-03-2023 Urate [Mass/Vol] 7.8 mg/dL 3.5-7.2 [facility] Comment on above: The drugs N-Acetylcy steine and Metamizole may falsely depress this assay. Thin prep Papanicolaou smear with manual screeningOrdered By: Dr. Yen on 01-03-2023 Thin prep Papanicolaou smear with manual screening 32 U/L 15-37 [facility] Thin prep Papanicolaou smear with manual screening 7 5-15 [facility] Basophil percentageOrdered B y: Dr. Bellamy on 12-20-2022 Basophil percentage 196 mg/dL 74-106 [facility] Basophil percentage 2.2 mg/dL 2.5-4.9 [facility] Basophil percentage 145 mmol/L 136-145 [facility] Basophil percentage 3.7 mmol/L 3.5-5.1 [facility] Basophil percentage 109 mmol/L 98-107 [facility] Chloride [Moles/Vol] 109 mmol/L 98-107 [facility] Glucose [Mass/Vol] 196 mg/dL 74-106 [facility] Comment on above: Fasting Glucose resu lt greater than or equal to 126 mg/dL suggests DIABETES MELLITUS per A.D.A. criteria. Potassium [Moles/Vol] 3.7 mmol/L 3.5-5.1 [facility] Sodium [Moles/Vol] 145 mmol/L 136-145 [facility] Laboratory - Chemistry and C hemistry - challengeOrdered By: Dr. Bellamy on 12-20-2022 CO2 [Moles/Vol] 26.0 mmol/L 21.0-32.0 [facility] Urea nitrogen/Creatinine [Mass ratio] 13.1 mg/mg 10- [facility] No Panel InformationOrdered By: Dr. Bellamy on 12-20-2022 Estimated GFR (MDRD) Amer 61 mL/min >60 [facility] Comment on above: GFR Calc Estimated GFR (MDRD) Non-Af Amer 50 mL/min >60 [facility] Comment on above: Non- GFR Calc 50 mL/min >60 [facility] 61 mL/min >60 [facility] 13.1 RATIO 10-20 [facility] 26.0 mmol/L 21.0-32.0 [facility] Serum or plasma albumin amanda urement (mass/volume)Ordered By: Dr. Bellamy on 12-20-2022 Albumin [Mass/Vol] 3.3 g/dL 3.2-5.0 [facility] Serum or plasma calcium amanda urement (mass/volume)Ordered By: Dr. Bellamy on 12-20-2022 Calcium [Mass/Vol] 8.4 mg/dL 8.5-10.1 [facility] Serum or plasma creatinine m easurement (mass/volume)Ordered By: Dr. Bellamy on 12-20-2022 Creatinine [Mass/Vol] 1.45 mg/dL 0.70-1.30 [facility] Comment on above: The validity of the calculated GFR & GFRAA in patients over 70 years has not been determined. Clinical correlation is essential. Serum or plasma urea nitroge n measurement (mass/volume)Ordered By: Dr. Bellamy on 12-20-2022 Urea nitrogen [Mass/Vol] 19 mg/dL 7-18 [facility] Urine creatinine measurement (mass/volume)Ordered By: Dr. Bellamy on 12-20-2022 Creatinine (U) [Mass/Vol] 308.00 mg/dL NO RANGE EST. [facility] Urine protein measurement (m ass/volume)Ordered By: Dr. Bellamy on 12-20-2022 Protein (U) [Mass/Vol] 110.0 mg/dL 0.0-11.8 [facility] Urine protein/creatinine mas s ratioOrdered By: Dr. Bellamy on 12-20-2022 Protein/Creatinine (U) [Mass ratio] 357 mg/g CRE 0-200 [facility] Qualitative QuantiFERON-TB g old in tube testOrdered By: Dr. Yen on 11-09-2022 M. tuberculosis tuberculin stim IFN-g Ql (Bld) 0.13 IU/mL . [facility] Thin prep Papanicolaou smear with manual screeningOrdered By: Dr. Yen on 11-09-2022 Thin prep Papanicolaou smear with manual screening Comment . [facility] Comment on above: QuantiFERON-TB Gold Plus [...] smear with manual screening 0.13 IU/mL . [facility] Thin prep Papanicolaou smear with manual screening 0.16 IU/mL . [facility] Thin prep Papanicolaou smear with manual screening > 10.00 IU/mL . [facility] Thin prep Papanicolaou smear with manual screening Negative Negative [facility] Comment on above: No response to [...] the productionof interferon gamma. Chemiluminescence immunoassaymethodologyPerformed at: [facility] [id number] Director: Leander Boo PhD, Phone: [phone] Absolute lymphocyte countOrd ered By: Dr. Yen on 11-08-2022 Lymphocytes Auto (Unsp spec) [#/Vol] 1.96 10*3/uL 0.83-4.51 [facility] Basophil percentageOrdered B y: Dr. Yen on 11-08-2022 Basophil percentage 169 mg/dL 74-106 [facility] Basophil percentage 7.2 g/dL 6.4-8.2 [facility] Basophil percentage 0.50 mg/dL 0.20-1.00 [facility] Basophil percentage 142 mmol/L 136-145 [facility] Basophil percentage 3.8 mmol/L 3.5-5.1 [facility] Basophil percentage 108 mmol/L 98-107 [facility] Basophils (Bld) [#/Vol] 6.5 10*3/uL 4.4-11.0 [facility] Basophils (Bld) [#/Vol] 3.6 10*3/uL 2.0-7.7 [facility] Basophils/100 WBC (Bld) 55.5 % 47-70 [facility] Basophils/100 WBC (Bld) 1.7 % 0-5 [facility] Basophils/100 WBC (Bld) 0.3 % 0-1 [facility] Bilirubin [Mass/Vol] 0.50 mg/dL 0.20-1.00 [facility] Comment on above: For patients on eltr ombopag therapy, use of Dimension [place] TBIL is not recommended. Chloride [Moles/Vol] 108 mmol/L 98-107 [facility] Eosinophils/100 WBC (Bld) 1.7 % 0-5 [facility] Glucose [Mass/Vol] 169 mg/dL 74-106 [facility] Comment on above: Fasting Glucose resu lt greater than or equal to 126 mg/dL suggests DIABETES MELLITUS per A.D.A. criteria. Neutrophils (Bld) [#/Vol] 3.6 10*3/uL 2.0-7.7 [facility] Neutrophils/100 WBC (Bld) 55.5 % 47-70 [facility] Potassium [Moles/Vol] 3.8 mmol/L 3.5-5.1 [facility] Protein [Mass/Vol] 7.2 g/dL 6.4-8.2 [facility] Sodium [Moles/Vol] 142 mmol/L 136-145 [facility] WBC (Bld) [#/Vol] 6.5 10*3/uL 4.4-11.0 [facility] Blood erythrocytes count (nu mber/volume)Ordered By: Dr. Yen on 11-08-2022 RBC (Bld) [#/Vol] 4.43 10*6/uL 4.6-6.2 [facility] Blood hemoglobin measurement (mass/volume)Ordered By: Dr. Yen on 11-08-2022 Hemoglobin (Bld) [Mass/Vol] 13.8 g/dL 13.0-16.5 [facility] Blood lymphocytes/100 leukoc ytesOrdered By: Dr. Yen on 11-08-2022 Lymphocytes/100 WBC (Bld) 30.4 % 19-41 [facility] Blood monocytes/100 leukocyt esOrdered By: Dr. Yen on 11-08-2022 Monocytes/100 WBC (Bld) 11.8 % 0-10 [facility] Blood platelet mean volumeOr dered By: Dr. Yen on 11-08-2022 Platelet mean volume (Bld) [Entitic vol] 11.5 fL 6.2-12.0 [facility] Determination of erythrocyte mean corpuscular volume (MCV)Ordered By: Dr. Yen on 11-08-2022 MCV (RBC) [Entitic vol] 93.5 fL 80-94 [facility] Hematocrit Auto (Bld) [Volum e fraction]Ordered By: Dr. Yen on 11-08-2022 Hematocrit (Bld) [Volume fraction] 41.4 % 40-54 [facility] Laboratory - Chemistry and C hemistry - challengeOrdered By: Dr. Yen on 11-08-2022 ALP [Catalytic activity/Vol] 53 U/L 45-117 [facility] ALT [Catalytic activity/Vol] 52 U/L 16-61 [facility] CO2 [Moles/Vol] 25.0 mmol/L 21.0-32.0 [facility] Globulin (S) [Mass/Vol] 3.8 g/dL 2.2-4.2 [facility] Urea nitrogen/Creatinine [Mass ratio] 17.8 mg/mg 10-20 [facility] Laboratory - Hematology and Cell countsOrdered By: Dr. Yen on 11-08-2022 Erythrocyte distribution width (RBC) [Entitic vol] 57.5 fL 35.1-43.9 [facility] Erythrocyte distribution width (RBC) [Ratio] 16.8 % 11.6-14.6 [facility] Immature granulocytes/100 WBC (Bld) 0.300 % 0.0-0.9 [facility] Comment on above: IG% - Immature Granu locytes (promyelocytes, myelocytes and metamyelocytes) > 1% indicates that a LEFT SHIFT is Present. MCH (RBC) [Entitic mass] 31.2 pg 27.0-32.0 [facility] Nucleated RBC/100 WBC (Bld) [Ratio] 0.3 % 0-5 [facility] MCHC Auto (RBC) [Mass/Vol]Or dered By: Dr. Yen on 11-08-2022 MCHC (RBC) [Mass/Vol] 33.3 g/dL 32-36 [facility] No Panel InformationOrdered By: Dr. Yen on 11-08-2022 Estimated GFR (MDRD) Amer 66 mL/min >60 [facility] Comment on above: GFR Calc Estimated GFR (MDRD) Non-Af Amer 54 mL/min >60 [facility] Comment on above: Non- GFR Calc 31.2 pg 27.0-32.0 [facility] 16.8 % 11.6-14.6 [facility] 57.5 fl 35.1-43.9 [facility] 0.300 % 0.0-0.9 [facility] 0.3 % 0-5 [facility] 54 mL/min >60 [facility] 66 mL/min >60 [facility] 17.8 RATIO 10-20 [facility] 3.8 g/dL 2.2-4.2 [facility] 53 U/L 45-117 [facility] 52 U/L 16-61 [facility] 25.0 mmol/L 21.0-32.0 [facility] Platelets bldOrdered By: Dr. Yen on 11-08-2022 Platelets (Bld) [#/Vol] 129 10*3/uL 150-450 [facility] Serum or plasma albumin amanda urement (mass/volume)Ordered By: Dr. Yen on 11-08-2022 Albumin [Mass/Vol] 3.4 g/dL 3.2-5.0 [facility] Serum or plasma albumin/glob ulin mass ratioOrdered By: Dr. Yen on 11-08-2022 Albumin/Globulin [Mass ratio] 0.9 {ratio} 0.9-2.4 [facility] Serum or plasma calcium amanda urement (mass/volume)Ordered By: Dr. Yen on 11-08-2022 Calcium [Mass/Vol] 9.0 mg/dL 8.5-10.1 [facility] Serum or plasma creatinine m easurement (mass/volume)Ordered By: Dr. Yen on 11-08-2022 Creatinine [Mass/Vol] 1.35 mg/dL 0.70-1.30 [facility] Comment on above: The validity of the calculated GFR & GFRAA in patients over 70 years has not been determined. Clinical correlation is essential. Serum or plasma urea nitroge n measurement (mass/volume)Ordered By: Dr. Yen on 11-08-2022 Urea nitrogen [Mass/Vol] 24 mg/dL 7-18 [facility] Serum or plasma uric acid me asurement (mass/volume)Ordered By: Dr. Yen on 11-08-2022 Urate [Mass/Vol] 5.1 mg/dL 3.5-7.2 [facility] Comment on above: The drugs N-Acetylcy steine and Metamizole may falsely depress this assay. Thin prep Papanicolaou smear with manual screeningOrdered By: Dr. Yen on 11-08-2022 Thin prep Papanicolaou smear with manual screening 23 U/L 15-37 [facility] Thin prep Papanicolaou smear with manual screening 9 5-15 [facility] Anaerobic cultureOrdered By: Dr. Rojo on 10-08-2022 Bacteria identified Anaer cx Nom (Unsp spec) No growth in 5 days. [facility] Bacterial body fluid culture Ordered By: Dr. Rojo on 10-07-2022 Bacteria identified Cx Nom (Body fld) Culture exhibits no growth. [facility] Absolute lymphocyte countOrd ered By: Dr. Bellamy on 10-05-2022 Lymphocytes Auto (Unsp spec) [#/Vol] 1.16 10*3/uL 0.83-4.51 [facility] Basophil percentageOrdered B y: Dr. Bellamy on 10-05-2022 Basophil percentage 1.8 mg/dL 2.5-4.9 [facility] Basophil percentage 210 mg/dL 74-106 [facility] Basophil percentage 138 mmol/L 136-145 [facility] Basophil percentage 3.4 mmol/L 3.5-5.1 [facility] Basophil percentage 104 mmol/L 98-107 [facility] Basophils (Bld) [#/Vol] 10.7 10*3/uL 4.4-11.0 [facility] Basophils (Bld) [#/Vol] 9.0 10*3/uL 2.0-7.7 [facility] Basophils/100 WBC (Bld) 0.1 % 0-1 [facility] Basophils/100 WBC (Bld) 84.0 % 47-70 [facility] Basophils/100 WBC (Bld) 0.0 % 0-5 [facility] Chloride [Moles/Vol] 104 mmol/L 98-107 [facility] Eosinophils/100 WBC (Bld) 0.0 % 0-5 [facility] Glucose [Mass/Vol] 210 mg/dL 74-106 [facility] Comment on above: Glucose result great er than or equal to 200 mg/dLsuggests DIABETES MELLITUS per A.D.A. criteria. Neutrophils (Bld) [#/Vol] 9.0 10*3/uL 2.0-7.7 [facility] Neutrophils/100 WBC (Bld) 84.0 % 47-70 [facility] Potassium [Moles/Vol] 3.4 mmol/L 3.5-5.1 [facility] Sodium [Moles/Vol] 138 mmol/L 136-145 [facility] WBC (Bld) [#/Vol] 10.7 10*3/uL 4.4-11.0 [facility] Blood erythrocytes count (nu mber/volume)Ordered By: Dr. Bellamy on 10-05-2022 RBC (Bld) [#/Vol] 3.98 10*6/uL 4.6-6.2 [facility] Blood hemoglobin measurement (mass/volume)Ordered By: Dr. Bellamy on 10-05-2022 Hemoglobin (Bld) [Mass/Vol] 12.3 g/dL 13.0-16.5 [facility] Blood lymphocytes/100 leukoc ytesOrdered By: Dr. Bellamy on 10-05-2022 Lymphocytes/100 WBC (Bld) 10.8 % 19-41 [facility] Blood monocytes/100 leukocyt esOrdered By: Dr. Bellamy on 10-05-2022 Monocytes/100 WBC (Bld) 4.7 % 0-10 [facility] Blood platelet mean volumeOr dered By: Dr. Bellamy on 10-05-2022 Platelet mean volume (Bld) [Entitic vol] 11.2 fL 6.2-12.0 [facility] Determination of erythrocyte mean corpuscular volume (MCV)Ordered By: Dr. Bellamy on 10-05-2022 MCV (RBC) [Entitic vol] 91.2 fL 80-94 [facility] Glucose Glucometer (BldC) [M ass/Vol]Ordered By: Dr. Bjoorquez on 10-05-2022 Glucose [Mass/Vol] 185 mg/dL 74-106 [facility] Comment on above: MANAGEMENT OF PATIEN T CARE PER NURSING PROTOCOL Hematocrit Auto (Bld) [Volum e fraction]Ordered By: Dr. Bellamy on 10-05-2022 Hematocrit (Bld) [Volume fraction] 36.3 % 40-54 [facility] Laboratory - Chemistry and C hemistry - challengeOrdered By: Dr. Bellamy on 10-05-2022 CO2 [Moles/Vol] 25.0 mmol/L 21.0-32.0 [facility] Magnesium [Mass/Vol] 2.2 mg/dL 1.6-2.6 [facility] Urea nitrogen/Creatinine [Mass ratio] 17.5 mg/mg 10-20 [facility] Laboratory - Hematology and Cell countsOrdered By: Dr. Bellamy on 10-05-2022 Erythrocyte distribution width (RBC) [Entitic vol] 53.3 fL 35.1-43.9 [facility] Erythrocyte distribution width (RBC) [Ratio] 15.7 % 11.6-14.6 [facility] Immature granulocytes/100 WBC (Bld) 0.400 % 0.0-0.9 [facility] Comment on above: IG% - Immature Granu locytes (promyelocytes, myelocytes and metamyelocytes) > 1% indicates that a LEFT SHIFT is Present. MCH (RBC) [Entitic mass] 30.9 pg 27.0-32.0 [facility] Nucleated RBC/100 WBC (Bld) [Ratio] 0 % 0-5 [facility] Auto (RBC) [Mass/Vol]Or dered By: Dr. Bellamy on 10-05-2022 MCHC (RBC) [Mass/Vol] 33.9 g/dL 32-36 [facility] No Panel InformationOrdered By: Dr. Bellamy on 10-05-2022 Estimated Creatinine Clearance Calc 34.29 ml/min [facility] Estimated GFR (MDRD) Amer 52 mL/min >60 [facility] Comment on above: GFR Calc Estimated GFR (MDRD) Non-Af Amer 43 mL/min >60 [facility] Comment on above: Non- GFR Calc 30.9 pg 27.0-32.0 [facility] 15.7 % 11.6-14.6 [facility] 53.3 fl 35.1-43.9 [facility] 0.400 % 0.0-0.9 [facility] 0 % 0-5 [facility] 43 mL/min >60 [facility] 52 mL/min >60 [facility] 34.29 ml/min [facility] 17.5 RATIO 10-20 [facility] 2.2 mg/dL 1.6-2.6 [facility] 25.0 mmol/L 21.0-32.0 [facility] Platelets bldOrdered By: Dr. Bellamy on 10-05-2022 Platelets (Bld) [#/Vol] 192 10*3/uL 150-450 [facility] Serum or plasma calcium amanda urement (mass/volume)Ordered By: Dr. Bellamy on 10-05-2022 Calcium [Mass/Vol] 8.4 mg/dL 8.5-10.1 [facility] Serum or plasma creatinine m easurement (mass/volume)Ordered By: Dr. Bellamy on 10-05-2022 Creatinine [Mass/Vol] 1.66 mg/dL 0.70-1.30 [facility] Comment on above: The validity of the calculated GFR & GFRAA in patients over 70 years has not been determined. Clinical correlation is essential. Serum or plasma urea nitroge n measurement (mass/volume)Ordered By: Dr. Bellamy on 10-05-2022 Urea nitrogen [Mass/Vol] 29 mg/dL 7-18 [facility] Thin prep Papanicolaou smear with manual screeningOrdered By: Dr. Bellamy on 10-05-2022 Thin prep Papanicolaou smear with manual screening 9 5-15 [facility] Absolute lymphocyte counton 10-04-2022 Lymphocytes Auto (Unsp spec) [#/Vol] 2.44 10*3/uL 0.83-4.51 [facility] Work Phone: Basophil percentageon 2022 Basophils/100 WBC (Bld) 0.2 % 0-1 [facility] Work Phone: Chloride [Moles/Vol] 104 mmol/L 98-107 [facility] Work Phone: Eosinophils/100 WBC (Bld) 1.7 % 0-5 [facility] Work Phone: Glucose [Mass/Vol] 175 mg/dL 74-106 [facility] Work Phone: Comment on above: Fasting Glucose resu lt greater than or equal to 126 mg/dL suggests DIABETES MELLITUS per A.D.A. criteria. Neutrophils (Bld) [#/Vol] 6.6 10*3/uL 2.0-7.7 [facility] Work Phone: Neutrophils/100 WBC (Bld) 62.9 % 47-70 [facility] Work Phone: Potassium [Moles/Vol] 3.3 mmol/L 3.5-5.1 [facility] Work Phone: Comment on above: Slight Hemolysis, Re sult may be falsely increased. Sodium [Moles/Vol] 136 mmol/L 136-145 [facility] Work Phone: WBC (Bld) [#/Vol] 10.4 10*3/uL 4.4-11.0 [facility] Work Phone: Blood erythrocytes count (nu mber/volume)on 10-04-2022 RBC (Bld) [#/Vol] 4.01 10*6/uL 4.6-6.2 [facility] Work Phone: Blood hemoglobin measurement (mass/volume)on 10-04-2022 Hemoglobin (Bld) [Mass/Vol] 12.5 g/dL 13.0-16.5 [facility] Work Phone: Blood lymphocytes/100 leukoc yteson 10-04-2022 Lymphocytes/100 WBC (Bld) 23.4 % 19-41 [facility] Work Phone: [phone] Blood monocytes/100 leukocyt eson 10-04-2022 Monocytes/100 WBC (Bld) 11.5 % 0-10 [facility] Work Phone: [phone] Blood platelet mean volumeon 10-04-2022 Platelet mean volume (Bld) [Entitic vol] 11.7 fL 6.2-12.0 [facility] Work Phone: [phone] Determination of erythrocyte mean corpuscular volume (MCV)on 10-04-2022 MCV (RBC) [Entitic vol] 92.8 fL 80-94 [facility] Work Phone: [phone] Erythrocyte sedimentation ra teOrdered By: Dr. tSratton on 10-04-2022 ESR (Bld) [Velocity] 43 mm/h 0-20 [facility] Hematocrit Auto (Bld) [Volum e fraction]on 10-04-2022 Hematocrit (Bld) [Volume fraction] 37.2 % 40-54 [facility] Work Phone: Laboratory - Chemistry and C hemistry - challengeon 10-04-2022 CO2 [Moles/Vol] 27.0 mmol/L 21.0-32.0 [facility] Work Phone: [phone] Urea nitrogen/Creatinine [Mass ratio] 14.0 mg/mg 10-20 [facility] Work Phone: [phone] Laboratory - Hematology and Cell countson 10-04-2022 Erythrocyte distribution width (RBC) [Entitic vol] 55.3 fL 35.1-43.9 [facility] Work Phone: [phone] Erythrocyte distribution width (RBC) [Ratio] 16.2 % 11.6-14.6 [facility] Work Phone: [phone] Immature granulocytes/100 WBC (Bld) 0.300 % 0.0-0.9 [facility] Work Phone: Comment on above: IG% - Immature Granu locytes (promyelocytes, myelocytes and metamyelocytes) > 1% indicates that a LEFT SHIFT is Present. MCH (RBC) [Entitic mass] 31.2 pg 27.0-32.0 [facility] Work Phone: [phone] Nucleated RBC/100 WBC (Bld) [Ratio] 0 % 0-5 [facility] Work Phone: [phone] MCHC Auto (RBC) [Mass/Vol]on 10-04-2022 MCHC (RBC) [Mass/Vol] 33.6 g/dL 32-36 [facility] Work Phone: [phone] No Panel Informationon 10-04 Estimated Creatinine Clearance Calc 30.60 ml/min [facility] Work Phone: [phone] Estimated GFR (MDRD) Amer 45 mL/min >60 [facility] Work Phone: Comment on above: GFR Calc Estimated GFR (MDRD) Non-Af Amer 38 mL/min >60 [facility] Work Phone: Comment on above: Non- GFR Calc Platelets bldon 10-04-2022 Platelets (Bld) [#/Vol] 176 10*3/uL 150-450 [facility] Work Phone: [phone] Serum or plasma C reactive p rotein measurement (mass/volume)Ordered By: Dr. Stratton on 10-04-2022 CRP [Mass/Vol] 122.00 mg/L 0.0-3.0 [facility] Comment on above: C-Reactive Protein ( CRP) provides useful information for thediagnosis, therapy and monitoring of inflammatory processesand associated diseases. For the evaluation of Relative Riskfor Cardiovascular Disease, a High Sensitivity CRP (HSCRP)should be ordered. Serum or plasma calcium amanda urement (mass/volume)on 10-04-2022 Calcium [Mass/Vol] 8.4 mg/dL 8.5-10.1 [facility] Work Phone: [phone] Serum or plasma creatinine m easurement (mass/volume)on 10-04-2022 Creatinine [Mass/Vol] 1.86 mg/dL 0.70-1.30 [facility] Work Phone: Comment on above: The validity of the calculated GFR & GFRAA in patients over 70 years has not been determined. Clinical correlation is essential. Serum or plasma urea nitroge n measurement (mass/volume)on 10-04-2022 Urea nitrogen [Mass/Vol] 26 mg/dL 7-18 [facility] Work Phone: Thin prep Papanicolaou smear with manual screeningon 10-04-2022 Thin prep Papanicolaou smear with manual screening 5 5-15 [facility] Work Phone: Gram stain for investigation of transfusion reactionOrdered By: Dr. Rojo on 10-03-2022 Microscopic observation Gram stain Nom (Unsp spec) [facility] Absolute lymphocyte countOrd ered By: Dr. Mckinley on 10-02-2022 Lymphocytes Auto (Unsp spec) [#/Vol] 2.56 10*3/uL 0.83-4.51 [facility] Absolute lymphocyte countOrd ered By: Dr. Yen on 10-02-2022 Lymphocytes Auto (Unsp spec) [#/Vol] 2.50 10*3/uL 0.83-4.51 [facility] Basophil percentageOrdered B y: Dr. Mckinley on 10-02-2022 Basophil percentage 130 mg/dL 74-106 [facility] Basophil percentage 138 mmol/L 136-145 [facility] Basophil percentage 3.5 mmol/L 3.5-5.1 [facility] Basophil percentage 103 mmol/L 98-107 [facility] Basophils (Bld) [#/Vol] 10.3 10*3/uL 4.4-11.0 [facility] Basophils (Bld) [#/Vol] 6.1 10*3/uL 2.0-7.7 [facility] Basophils/100 WBC (Bld) 0.3 % 0-1 [facility] Basophils/100 WBC (Bld) 59.5 % 47-70 [facility] Basophils/100 WBC (Bld) 2.8 % 0-5 [facility] Chloride [Moles/Vol] 103 mmol/L 98-107 [facility] Eosinophils/100 WBC (Bld) 2.8 % 0-5 [facility] Glucose [Mass/Vol] 130 mg/dL 74-106 [facility] Comment on above: Fasting Glucose resu lt greater than or equal to 126 mg/dL suggests DIABETES MELLITUS per A.D.A. criteria. Neutrophils (Bld) [#/Vol] 6.1 10*3/uL 2.0-7.7 [facility] Neutrophils/100 WBC (Bld) 59.5 % 47-70 [facility] Potassium [Moles/Vol] 3.5 mmol/L 3.5-5.1 [facility] Sodium [Moles/Vol] 138 mmol/L 136-145 [facility] WBC (Bld) [#/Vol] 10.3 10*3/uL 4.4-11.0 [facility] Basophil percentageOrdered B y: Dr. Yen on 10-02-2022 Basophil percentage 200 mg/dL 74-106 [facility] Basophil percentage 7.7 g/dL 6.4-8.2 [facility] Basophil percentage 0.60 mg/dL 0.20-1.00 [facility] Basophil percentage 139 mmol/L 136-145 [facility] Basophil percentage 3.4 mmol/L 3.5-5.1 [facility] Basophil percentage 103 mmol/L 98-107 [facility] Basophils (Bld) [#/Vol] 9.3 10*3/uL 4.4-11.0 [facility] Basophils (Bld) [#/Vol] 5.5 10*3/uL 2.0-7.7 [facility] Basophils/100 WBC (Bld) 0.3 % 0-1 [facility] Basophils/100 WBC (Bld) 58.9 % 47-70 [facility] Basophils/100 WBC (Bld) 3.1 % 0-5 [facility] Bilirubin [Mass/Vol] 0.60 mg/dL 0.20-1.00 [facility] Comment on above: For patients on eltr ombopag therapy, use of Dimension [place] TBIL is not recommended. Chloride [Moles/Vol] 103 mmol/L 98-107 [facility] Eosinophils/100 WBC (Bld) 3.1 % 0-5 [facility] Glucose [Mass/Vol] 200 mg/dL 74-106 [facility] Comment on above: Glucose result great er than or equal to 200 mg/dLsuggests DIABETES MELLITUS per A.D.A. criteria. Neutrophils (Bld) [#/Vol] 5.5 10*3/uL 2.0-7.7 [facility] Neutrophils/100 WBC (Bld) 58.9 % 47-70 [facility] Potassium [Moles/Vol] 3.4 mmol/L 3.5-5.1 [facility] Protein [Mass/Vol] 7.7 g/dL 6.4-8.2 [facility] Sodium [Moles/Vol] 139 mmol/L 136-145 [facility] WBC (Bld) [#/Vol] 9.3 10*3/uL 4.4-11.0 [facility] Blood erythrocytes count (nu mber/volume)Ordered By: Dr. Mckinley on 10-02-2022 RBC (Bld) [#/Vol] 4.31 10*6/uL 4.6-6.2 [facility] Blood erythrocytes count (nu mber/volume)Ordered By: Dr. Yen on 10-02-2022 RBC (Bld) [#/Vol] 4.18 10*6/uL 4.6-6.2 [facility] Blood hemoglobin measurement (mass/volume)Ordered By: Dr. Mckinley on 10-02-2022 Hemoglobin (Bld) [Mass/Vol] 13.6 g/dL 13.0-16.5 [facility] Blood hemoglobin measurement (mass/volume)Ordered By: Dr. Yen on 10-02-2022 Hemoglobin (Bld) [Mass/Vol] 13.0 g/dL 13.0-16.5 [facility] Blood lymphocytes/100 leukoc ytesOrdered By: Dr. Rojo on 10-02-2022 Lymphocytes/100 WBC (Bld) 34 % [facility] Blood lymphocytes/100 leukoc ytesOrdered By: Dr. Mckinley on 10-02-2022 Lymphocytes/100 WBC (Bld) 24.9 % 19-41 [facility] Blood lymphocytes/100 leukoc ytesOrdered By: Dr. Yen on 10-02-2022 Lymphocytes/100 WBC (Bld) 26.9 % 19-41 [facility] Blood monocytes/100 leukocyt esOrdered By: Dr. Mckinley on 10-02-2022 Monocytes/100 WBC (Bld) 12.2 % 0-10 [facility] Blood monocytes/100 leukocyt esOrdered By: Dr. Yen on 10-02-2022 Monocytes/100 WBC (Bld) 10.3 % 0-10 [facility] Blood platelet mean volumeOr dered By: Dr. Mckinley on 10-02-2022 Platelet mean volume (Bld) [Entitic vol] 10.7 fL 6.2-12.0 [facility] Blood platelet mean volumeOr dered By: Dr. Yen on 10-02-2022 Platelet mean volume (Bld) [Entitic vol] 11.0 fL 6.2-12.0 [facility] Color of Synovial fluidOrder ed By: Dr. Rojo on 10-02-2022 Color (Syn fld) Yellow Pale Yellow [facility] Determination of appearance of synovial fluidOrdered By: Dr. Rojo on 10-02-2022 Appearance (Syn fld) Sl Cl CLEAR [facility] Determination of erythrocyte mean corpuscular volume (MCV)Ordered By: Dr. Mckinley on 10-02-2022 MCV (RBC) [Entitic vol] 90.7 fL 80-94 [facility] Determination of erythrocyte mean corpuscular volume (MCV)Ordered By: Dr. Yen on 10-02-2022 MCV (RBC) [Entitic vol] 91.1 fL 80-94 [facility] Erythrocyte sedimentation ra teOrdered By: Dr. Mckinley on 10-02-2022 ESR (Bld) [Velocity] 28 mm/h 0-20 [facility] Hematocrit Auto (Bld) [Volum e fraction]Ordered By: Dr. Mckinley on 10-02-2022 Hematocrit (Bld) [Volume fraction] 39.1 % 40-54 [facility] Hematocrit Auto (Bld) [Volum e fraction]Ordered By: Dr. Yen on 10-02-2022 Hematocrit (Bld) [Volume fraction] 38.1 % 40-54 [facility] Laboratory - Chemistry and C hemistry - challengeOrdered By: Dr. Mckinley on 10-02-2022 CO2 [Moles/Vol] 28.0 mmol/L 21.0-32.0 [facility] Urea nitrogen/Creatinine [Mass ratio] 12.1 mg/mg 10-20 [facility] Laboratory - Chemistry and C hemistry - challengeOrdered By: Dr. Yen on 10-02-2022 ALP [Catalytic activity/Vol] 59 U/L 45-117 [facility] ALT [Catalytic activity/Vol] 47 U/L 16-61 [facility] CO2 [Moles/Vol] 28.0 mmol/L 21.0-32.0 [facility] Globulin (S) [Mass/Vol] 3.8 g/dL 2.2-4.2 [facility] Urea nitrogen/Creatinine [Mass ratio] 12.6 mg/mg 10-20 [facility] Laboratory - Hematology and Cell countsOrdered By: Dr. Mckinley on 10-02-2022 Erythrocyte distribution width (RBC) [Entitic vol] 53.1 fL 35.1-43.9 [facility] Erythrocyte distribution width (RBC) [Ratio] 15.9 % 11.6-14.6 [facility] Immature granulocytes/100 WBC (Bld) 0.300 % 0.0-0.9 [facility] Comment on above: IG% - Immature Granu locytes (promyelocytes, myelocytes and metamyelocytes) > 1% indicates that a LEFT SHIFT is Present. MCH (RBC) [Entitic mass] 31.6 pg 27.0-32.0 [facility] Nucleated RBC/100 WBC (Bld) [Ratio] 0 % 0-5 [facility] Laboratory - Hematology and Cell countsOrdered By: Dr. Yen on 10-02-2022 Erythrocyte distribution width (RBC) [Entitic vol] 52.8 fL 35.1-43.9 [facility] Erythrocyte distribution width (RBC) [Ratio] 15.7 % 11.6-14.6 [facility] Immature granulocytes/100 WBC (Bld) 0.500 % 0.0-0.9 [facility] Comment on above: IG% - Immature Granu locytes (promyelocytes, myelocytes and metamyelocytes) > 1% indicates that a LEFT SHIFT is Present. MCH (RBC) [Entitic mass] 31.1 pg 27.0-32.0 [facility] Nucleated RBC/100 WBC (Bld) [Ratio] 0 % 0-5 [facility] MCHC Auto (RBC) [Mass/Vol]Or dered By: Dr. Mckinley on 10-02-2022 MCHC (RBC) [Mass/Vol] 34.8 g/dL -36 [facility] MCHC Auto (RBC) [Mass/Vol]Or dered By: Dr. Yen on 10-02-2022 MCHC (RBC) [Mass/Vol] 34.1 g/dL -36 [facility] No Panel InformationOrdered By: Dr. Rojo on 10-02-2022 Synovial Fluid Mononuclear WBCs 0.167 10^3/ul [facility] Synovial Fluid Mononuclear WBCs % 56.3 % [facility] Synovial Fluid Polynuclear WBCs 0.130 10^3/uL [facility] Synovial Fluid Polynuclear WBCs % 43.7 % [facility] Synovial Fluid Total Cells Counted 0.3170 10^3/uL 0.000-0.00 0 [facility] Comment on above: This is the Total Nu mber of Nucleated Cell Types in the Body Fluid. 0.3170 10^3/uL 0.000-0.00 0 [facility] 43.7 % [facility] 0.130 10^3/uL [facility] 56.3 % [facility] 0.167 10^3/ul [facility] No Panel InformationOrdered By: Dr. Mckinley on 10-02-2022 Estimated Creatinine Clearance Calc 31.27 ml/min [facility] Estimated GFR (MDRD) Amer 47 mL/min >60 [facility] Comment on above: GFR Calc Estimated GFR (MDRD) Non-Af Amer 39 mL/min >60 [facility] Comment on above: Non- GFR Calc 31.6 pg 27.0-32.0 [facility] 15.9 % 11.6-14.6 [facility] 53.1 fl 35.1-43.9 [facility] 0.300 % 0.0-0.9 [facility] 0 % 0-5 [facility] 39 mL/min >60 [facility] 47 mL/min >60 [facility] 31.27 ml/min [facility] 12.1 RATIO 10-20 [facility] 28.0 mmol/L 21.0-32.0 [facility] No Panel InformationOrdered By: Dr. Yen on 10-02-2022 Estimated GFR (MDRD) Amer 49 mL/min >60 [facility] Comment on above: GFR Calc Estimated GFR (MDRD) Non-Af Amer 41 mL/min >60 [facility] Comment on above: Non- GFR Calc 31.1 pg 27.0-32.0 [facility] 15.7 % 11.6-14.6 [facility] 52.8 fl 35.1-43.9 [facility] 0.500 % 0.0-0.9 [facility] 0 % 0-5 [facility] 41 mL/min >60 [facility] 49 mL/min >60 [facility] 12.6 RATIO 10-20 [facility] 3.8 g/dL 2.2-4.2 [facility] 59 U/L 45-117 [facility] 47 U/L 16-61 [facility] 28.0 mmol/L 21.0-32.0 [facility] Platelets bldOrdered By: Dr. Mckinley on 10-02-2022 Platelets (Bld) [#/Vol] 176 10*3/uL 150-450 [facility] Platelets bldOrdered By: Dr. Yen on 10-02-2022 Platelets (Bld) [#/Vol] 165 10*3/uL 150-450 [facility] Review by pathologiston Pathologist review [place] (Unsp spec) [Interp] May follow [facility] Work Phone: Review by pathologistOrdered By: Dr. Rojo on 10-02-2022 Pathologist review [place] (Unsp spec) [Interp] Reviewed [facility] Comment on above: Previous reported re sult: May follow Edited by: RGOOD on 10/03/22:1326Negative for malignant cells.Andrea Henley M.D. 10/03/22 AMENDED REPORT 10/03/22 1326 PATH COM/SYFL previously reported as: May follow Serum or plasma C reactive p rotein measurement (mass/volume)Ordered By: Dr. Mckinley on 10-02-2022 CRP [Mass/Vol] 26.30 mg/L 0.0-3.0 [facility] Comment on above: C-Reactive Protein ( CRP) provides useful information for thediagnosis, therapy and monitoring of inflammatory processesand associated diseases. For the evaluation of Relative Riskfor Cardiovascular Disease, a High Sensitivity CRP (HSCRP)should be ordered. Serum or plasma albumin amanda urement (mass/volume)Ordered By: Dr. Yen on 10-02-2022 Albumin [Mass/Vol] 3.9 g/dL 3.2-5.0 [facility] Serum or plasma albumin/glob ulin mass ratioOrdered By: Dr. Yen on 10-02-2022 Albumin/Globulin [Mass ratio] 1.0 {ratio} 0.9-2.4 [facility] Serum or plasma calcium amanda urement (mass/volume)Ordered By: Dr. Mckinley on 10-02-2022 Calcium [Mass/Vol] 8.7 mg/dL 8.5-10.1 [facility] Serum or plasma calcium amanda urement (mass/volume)Ordered By: Dr. Yen on 10-02-2022 Calcium [Mass/Vol] 9.1 mg/dL 8.5-10.1 [facility] Serum or plasma creatinine m easurement (mass/volume)Ordered By: Dr. Mckinley on 10-02-2022 Creatinine [Mass/Vol] 1.82 mg/dL 0.70-1.30 [facility] Comment on above: The validity of the calculated GFR & GFRAA in patients over 70 years has not been determined. Clinical correlation is essential. Serum or plasma creatinine m easurement (mass/volume)Ordered By: Dr. Yen on 10-02-2022 Creatinine [Mass/Vol] 1.74 mg/dL 0.70-1.30 [facility] Comment on above: The validity of the calculated GFR & GFRAA in patients over 70 years has not been determined. Clinical correlation is essential. Serum or plasma urea nitroge n measurement (mass/volume)Ordered By: Dr. Mckinley on 10-02-2022 Urea nitrogen [Mass/Vol] 22 mg/dL 04-16 [facility] Serum or plasma urea nitroge n measurement (mass/volume)Ordered By: Dr. Yen on 10-02-2022 Urea nitrogen [Mass/Vol] 22 mg/dL 04-16 [facility] Serum or plasma uric acid me asurement (mass/volume)Ordered By: Dr. Mckinley on 10-02-2022 Urate [Mass/Vol] 8.3 mg/dL 3.5-7.2 [facility] Comment on above: The drugs N-Acetylcy steine and Metamizole may falsely depress this assay. Specimen source identificati on of body fluidOrdered By: Dr. Rojo on 10-02-2022 Specimen source Nom (Body fld) RIGHT KNEE [facility] Synovial fluid erythrocytes count (number/volume)Ordered By: Dr. Rojo on 10-02-2022 RBC (Syn fld) [#/Vol] 0.002 10^6/uL 0-0 [facility] Synovial fluid leukocytes co unt (number/volume)Ordered By: Dr. Rojo on 10-02-2022 WBC (Syn fld) [#/Vol] 0.2970 10^3/uL 0.00 0-0.00 2 [facility] Synovial fluid monocyte perc entageOrdered By: Dr. Rojo on 10-02-2022 Monocytes/100 WBC (Syn fld) 34 % [facility] Synovial fluid neutrophil pe rcentageOrdered By: Dr. Rojo on 10-02-2022 Neutrophils/100 WBC (Syn fld) 30 % 0-25 [facility] Synovial fluid other cells/1 00 leukocytes identificationOrdered By: Dr. Rojo on 10-02-2022 Other cells/100 WBC Nom (Syn fld) 2 % [facility] Thin prep Papanicolaou smear with manual screeningOrdered By: Dr. Mckinley on 10-02-2022 Thin prep Papanicolaou smear with manual screening 7 5-15 [facility] Thin prep Papanicolaou smear with manual screeningOrdered By: Dr. Yen on 10-02-2022 Thin prep Papanicolaou smear with manual screening 29 U/L 15-37 [facility] Thin prep Papanicolaou smear with manual screening 8 5-15 [facility] Absolute lymphocyte countOrd ered By: Dyan Chavez on 09-06-2022 Lymphocytes Auto (Unsp spec) [#/Vol] 2.77 10*3/uL 0.83-4.51 [facility] Basophil percentageOrdered B y: Dyan Scott on 09-06-2022 Basophil percentage 121 mg/dL 74-106 [facility] Basophil percentage 139 mmol/L 136-145 [facility] Basophil percentage 3.5 mmol/L 3.5-5.1 [facility] Basophil percentage 106 mmol/L 98-107 [facility] Basophils (Bld) [#/Vol] 6.7 10*3/uL 4.4-11.0 [facility] Basophils (Bld) [#/Vol] 2.8 10*3/uL 2.0-7.7 [facility] Basophils/100 WBC (Bld) 0.6 % 0-1 [facility] Basophils/100 WBC (Bld) 41.2 % 47-70 [facility] Basophils/100 WBC (Bld) 6.4 % 0-5 [facility] Chloride [Moles/Vol] 106 mmol/L 98-107 [facility] Eosinophils/100 WBC (Bld) 6.4 % 0-5 [facility] Glucose [Mass/Vol] 121 mg/dL 74-106 [facility] Comment on above: Fasting Glucose resu lt from 100 to 125 mg/dL suggests IMPAIRED HOMEOSTASIS per A.D.A. criteria. Neutrophils (Bld) [#/Vol] 2.8 10*3/uL 2.0-7.7 [facility] Neutrophils/100 WBC (Bld) 41.2 % 47-70 [facility] Potassium [Moles/Vol] 3.5 mmol/L 3.5-5.1 [facility] Sodium [Moles/Vol] 139 mmol/L 136-145 [facility] WBC (Bld) [#/Vol] 6.7 10*3/uL 4.4-11.0 [facility] Blood erythrocytes count (nu mber/volume)Ordered By: Dyan Chavez on 09-06-2022 RBC (Bld) [#/Vol] 4.43 10*6/uL 4.6-6.2 [facility] Blood hemoglobin measurement (mass/volume)Ordered By: Dyan Chavez on 09-06-2022 Hemoglobin (Bld) [Mass/Vol] 13.6 g/dL 13.0-16.5 [facility] Blood lymphocytes/100 leukoc ytesOrdered By: Dyan Chavez on 09-06-2022 Lymphocytes/100 WBC (Bld) 41.2 % 19-41 [facility] Blood monocytes/100 leukocyt esOrdered By: Dyan Chavez on 09-06-2022 Monocytes/100 WBC (Bld) 10.5 % 0-10 [facility] Blood platelet mean volumeOr dered By: Dyan Chavez on 09-06-2022 Platelet mean volume (Bld) [Entitic vol] 11.1 fL 6.2-12.0 [facility] Determination of erythrocyte mean corpuscular volume (MCV)Ordered By: Dyan Chavez on 09-06-2022 MCV (RBC) [Entitic vol] 91.4 fL 80-94 [facility] Hematocrit Auto (Bld) [Volum e fraction]Ordered By: Dyan Chavez on 09-06-2022 Hematocrit (Bld) [Volume fraction] 40.5 % 40-54 [facility] Laboratory - Chemistry and C hemistry - challengeOrdered By: Dyan Chavez on 09-06-2022 CO2 [Moles/Vol] 28.0 mmol/L 21.0-32.0 [facility] Free T4 [Mass/Vol] 0.93 ng/dL 0.76-1.46 [facility] Urea nitrogen/Creatinine [Mass ratio] 14.5 mg/mg 10-20 [facility] Laboratory - Hematology and Cell countsOrdered By: Dyan Chavez on 09-06-2022 Erythrocyte distribution width (RBC) [Entitic vol] 53.2 fL 35.1-43.9 [facility] Erythrocyte distribution width (RBC) [Ratio] 15.8 % 11.6-14.6 [facility] Immature granulocytes/100 WBC (Bld) 0.100 % 0.0-0.9 [facility] Comment on above: IG% - Immature Granu locytes (promyelocytes, myelocytes and metamyelocytes) > 1% indicates that a LEFT SHIFT is Present. MCH (RBC) [Entitic mass] 30.7 pg 27.0-32.0 [facility] Nucleated RBC/100 WBC (Bld) [Ratio] 0 % 0-5 [facility] MCHC Auto (RBC) [Mass/Vol]Or dered By: Dyan Chavez on 09-06-2022 MCHC (RBC) [Mass/Vol] 33.6 g/dL 32-36 [facility] No Panel InformationOrdered By: Dyan Chavez on 09-06-2022 Estimated GFR (MDRD) Amer 52 mL/min >60 [facility] Comment on above: GFR Calc Estimated GFR (MDRD) Non-Af Amer 43 mL/min >60 [facility] Comment on above: Non- GFR Calc Free Triiodothyronine (T3) pg/dL 2.0 pg/mL 2.18-3.98 [facility] Thyroid Stimulating Hormone (TSH) 1.55 uIU/mL 0.358-3.74 [facility] Vitamin D 25-Hydroxy 47.3 ng/mL [facility] Comment on above: Vitamin D 25(OH) Sta tus Range Deficiency <20 ng/mL (50nmol/L) Insufficiency 20 - 30 ng/mL (50 - 75 nmol/L) Sufficiency 30 - 100 ng/mL (75 - 250 nmol/L) Toxicity >100 ng/mL (>250 nmol/L) 30.7 pg 27.0-32.0 [facility] 15.8 % 11.6-14.6 [facility] 53.2 fl 35.1-43.9 [facility] 0.100 % 0.0-0.9 [facility] 0 % 0-5 [facility] 43 mL/min >60 [facility] 52 mL/min >60 [facility] 14.5 RATIO 10-20 [facility] 28.0 mmol/L 21.0-32.0 [facility] 2.0 pg/mL 2.18-3.98 [facility] 1.55 uIU/mL 0.358-3.74 [facility] 0.93 ng/dL 0.76-1.46 [facility] 47.3 ng/mL [facility] Platelets bldOrdered By: Raymon Chavez on 09-06-2022 Platelets (Bld) [#/Vol] 181 10*3/uL 150-450 [facility] Serum or plasma calcium amanda urement (mass/volume)Ordered By: Dyan Chavez on 09-06-2022 Calcium [Mass/Vol] 8.7 mg/dL 8.5-10.1 [facility] Serum or plasma creatinine m easurement (mass/volume)Ordered By: Dyan Chavez on 09-06-2022 Creatinine [Mass/Vol] 1.65 mg/dL 0.70-1.30 [facility] Comment on above: The validity of the calculated GFR & GFRAA in patients over 70 years has not been determined. Clinical correlation is essential. Serum or plasma urea nitroge n measurement (mass/volume)Ordered By: Dyan Chavez on 09-06-2022 Urea nitrogen [Mass/Vol] 24 mg/dL 7-18 [facility] Thin prep Papanicolaou smear with manual screeningOrdered By: Dyan Chavez on 09-06-2022 Thin prep Papanicolaou smear with manual screening 5 5-15 [facility] Basophil percentageOrdered B y: Dyan Chavez on 07-17-2022 Chloride [Moles/Vol] 110 mmol/L 98-107 [facility] Glucose [Mass/Vol] 146 mg/dL 74-106 [facility] Comment on above: Fasting Glucose resu lt greater than or equal to 126 mg/dL suggests DIABETES MELLITUS per A.D.A. criteria. Potassium [Moles/Vol] 3.8 mmol/L 3.5-5.1 [facility] Sodium [Moles/Vol] 141 mmol/L 136-145 [facility] Laboratory - Chemistry and C hemistry - challengeOrdered By: Dyan Chavez on 07-17-2022 CO2 [Moles/Vol] 26.0 mmol/L 21.0-32.0 [facility] Urea nitrogen/Creatinine [Mass ratio] 17.0 mg/mg 10-20 [facility] No Panel InformationOrdered By: Dyan Chavez on 07-17-2022 Estimated GFR (MDRD) Amer 57 mL/min >60 [facility] Comment on above: GFR Calc Estimated GFR (MDRD) Non-Af Amer 47 mL/min >60 [facility] Comment on above: Non- GFR Calc Serum or plasma calcium amanda urement (mass/volume)Ordered By: Dayn Chavez on 07-17-2022 Calcium [Mass/Vol] 9.1 mg/dL 8.5-10.1 [facility] Serum or plasma creatinine m easurement (mass/volume)Ordered By: Dyan Chavez on 07-17-2022 Creatinine [Mass/Vol] 1.53 mg/dL 0.70-1.30 [facility] Comment on above: The validity of the calculated GFR & GFRAA in patients over 70 years has not been determined. Clinical correlation is essential. Serum or plasma urea nitroge n measurement (mass/volume)Ordered By: Dyan Chavez on 07-17-2022 Urea nitrogen [Mass/Vol] 26 mg/dL 04-16 [facility] Thin prep Papanicolaou smear with manual screeningOrdered By: Dyan Chavez on 07-17-2022 Thin prep Papanicolaou smear with manual screening 5 5-15 [facility] Basophil percentageon 2021 Basophil percentage 3.3 mg/dL 2.5-4.9 [facility] Work Phone: Chloride [Moles/Vol] 111 mmol/L 98-107 [facility] Work Phone: [phone] Glucose [Mass/Vol] 86 mg/dL 74-106 [facility] Work Phone: [phone] Potassium [Moles/Vol] 3.7 mmol/L 3.5-5.1 [facility] Work Phone: [phone] Sodium [Moles/Vol] 143 mmol/L 136-145 [facility] Work Phone: [phone] WBC (Bld) [#/Vol] 6.9 10*3/uL 4.4-11.0 [facility] Work Phone: Blood erythrocytes count (nu mber/volume)on 04-12-2022 RBC (Bld) [#/Vol] 4.29 10*6/uL 4.6-6.2 [facility] Work Phone: Blood hemoglobin measurement (mass/volume)on 04-12-2022 Hemoglobin (Bld) [Mass/Vol] 13.3 g/dL 13.0-16.5 [facility] Work Phone: [phone] Blood platelet mean volumeon 04-12-2022 Platelet mean volume (Bld) [Entitic vol] 11.2 fL 6.2-12.0 [facility] Work Phone: [phone] Determination of erythrocyte mean corpuscular volume (MCV)on 04-12-2022 MCV (RBC) [Entitic vol] 94.2 fL 80-94 [facility] Work Phone: [phone] Hematocrit Auto (Bld) [Volum e fraction]on 04-12-2022 Hematocrit (Bld) [Volume fraction] 40.4 % 40-54 [facility] Work Phone: Laboratory - Chemistry and C hemistry - challengeon 04-12-2022 CO2 [Moles/Vol] 29.0 mmol/L 21.0-32.0 [facility] Work Phone: Urea nitrogen/Creatinine [Mass ratio] 12.0 mg/mg 10-20 [facility] Work Phone: [phone] Laboratory - Hematology and Cell countson 04-12-2022 Erythrocyte distribution width (RBC) [Entitic vol] 54.0 fL 35.1-43.9 [facility] Work Phone: [phone] Erythrocyte distribution width (RBC) [Ratio] 15.6 % 11.6-14.6 [facility] Work Phone: [phone] MCH (RBC) [Entitic mass] 31.0 pg 27.0-32.0 [facility] Work Phone: [phone] MCHC Auto (RBC) [Mass/Vol]on 04-12-2022 MCHC (RBC) [Mass/Vol] 32.9 g/dL 32-36 [facility] Work Phone: No Panel Informationon 04-12 Estimated GFR (MDRD) Amer 52 mL/min >60 [facility] Work Phone: Comment on above: GFR Calc Estimated GFR (MDRD) Non-Af Amer 43 mL/min >60 [facility] Work Phone: Comment on above: Non- GFR Calc Parathyroid Hormone (Intact) 52.7 pg/mL 18.4-80.1 [facility] Work Phone: Platelets bldon 04-12-2022 Platelets (Bld) [#/Vol] 198 10*3/uL 150-450 [facility] Work Phone: Serum or plasma albumin amanda urement (mass/volume)on 04-12-2022 Albumin [Mass/Vol] 3.6 g/dL 3.2-5.0 [facility] Work Phone: Serum or plasma calcium amanda urement (mass/volume)on 04-12-2022 Calcium [Mass/Vol] 8.7 mg/dL 8.5-10.1 [facility] Work Phone: Serum or plasma creatinine m easurement (mass/volume)on 04-12-2022 Creatinine [Mass/Vol] 1.66 mg/dL 0.70-1.30 [facility] Work Phone: Comment on above: The validity of the calculated GFR & GFRAA in patients over 70 years has not been determined. Clinical correlation is essential. Serum or plasma urea nitroge n measurement (mass/volume)on 04-12-2022 Urea nitrogen [Mass/Vol] 20 mg/dL 7-18 [facility] Work Phone: Urine creatinine measurement (mass/volume)on 04-12-2022 Creatinine (U) [Mass/Vol] 78.70 mg/dL NO RANGE EST. [facility] Work Phone: Urine protein measurement (m ass/volume)on 04-12-2022 Protein (U) [Mass/Vol] 63.3 mg/dL 0.0-11.8 [facility] Work Phone: Urine protein/creatinine mas s ratioon 04-12-2022 Protein/Creatinine (U) [Mass ratio] 804 mg/g CRE 0-200 [facility] Work Phone: Absolute lymphocyte counton 03-28-2022 Lymphocytes Auto (Unsp spec) [#/Vol] 2.57 10*3/uL 0.83-4.51 [facility] Work Phone: Basophil percentageon 2021 Basophils/100 WBC (Bld) 0.3 % 0-1 [facility] Work Phone: Bilirubin [Mass/Vol] 0.70 mg/dL 0.20-1.00 [facility] Work Phone: Comment on above: For patients on eltr ombopag therapy, use of Dimension [place] TBIL is not recommended. Chloride [Moles/Vol] 110 mmol/L 98-107 [facility] Work Phone: Eosinophils/100 WBC (Bld) 2.9 % 0-5 [facility] Work Phone: Glucose [Mass/Vol] 115 mg/dL 74-106 [facility] Work Phone: Comment on above: Fasting Glucose resu lt from 100 to 125 mg/dL suggests IMPAIRED HOMEOSTASIS per A.D.A. criteria. Neutrophils (Bld) [#/Vol] 4.0 10*3/uL 2.0-7.7 [facility] Work Phone: Neutrophils/100 WBC (Bld) 52.6 % 47-70 [facility] Work Phone: Potassium [Moles/Vol] 3.8 mmol/L 3.5-5.1 [facility] Work Phone: Protein [Mass/Vol] 7.3 g/dL 6.4-8.2 [facility] Work Phone: Sodium [Moles/Vol] 143 mmol/L 136-145 [facility] Work Phone: WBC (Bld) [#/Vol] 7.5 10*3/uL 4.4-11.0 [facility] Work Phone: Blood erythrocytes count (nu mber/volume)on 03-28-2022 RBC (Bld) [#/Vol] 4.21 10*6/uL 4.6-6.2 [facility] Work Phone: [phone] Blood hemoglobin measurement (mass/volume)on 03-28-2022 Hemoglobin (Bld) [Mass/Vol] 12.9 g/dL 13.0-16.5 [facility] Work Phone: [phone] Blood lymphocytes/100 leukoc yteson 03-28-2022 Lymphocytes/100 WBC (Bld) 34.1 % 19-41 [facility] Work Phone: [phone] Blood monocytes/100 leukocyt eson 03-28-2022 Monocytes/100 WBC (Bld) 9.8 % 0-10 [facility] Work Phone: [phone] Blood platelet mean volumeon 03-28-2022 Platelet mean volume (Bld) [Entitic vol] 12.0 fL 6.2-12.0 [facility] Work Phone: [phone] Determination of erythrocyte mean corpuscular volume (MCV)on 03-28-2022 MCV (RBC) [Entitic vol] 95.5 fL 80-94 [facility] Work Phone: [phone] Hematocrit Auto (Bld) [Volum e fraction]on 03-28-2022 Hematocrit (Bld) [Volume fraction] 40.2 % 40-54 [facility] Work Phone: Laboratory - Chemistry and C hemistry - challengeon 03-28-2022 ALP [Catalytic activity/Vol] 60 U/L 45-117 [facility] Work Phone: [phone] ALT [Catalytic activity/Vol] 35 U/L 16-61 [facility] Work Phone: [phone] CO2 [Moles/Vol] 28.0 mmol/L 21.0-32.0 [facility] Work Phone: [phone] Globulin (S) [Mass/Vol] 3.8 g/dL 2.2-4.2 [facility] Work Phone: [phone] Urea nitrogen/Creatinine [Mass ratio] 11.4 mg/mg 10-20 [facility] Work Phone: [phone] Laboratory - Hematology and Cell countson 03-28-2022 Erythrocyte distribution width (RBC) [Entitic vol] 55.7 fL 35.1-43.9 [facility] Work Phone: [phone] Erythrocyte distribution width (RBC) [Ratio] 15.8 % 11.6-14.6 [facility] Work Phone: [phone] Immature granulocytes/100 WBC (Bld) 0.300 % 0.0-0.9 [facility] Work Phone: [phone] Comment on above: IG% - Immature Granu locytes (promyelocytes, myelocytes and metamyelocytes) > 1% indicates that a LEFT SHIFT is Present. MCH (RBC) [Entitic mass] 30.6 pg 27.0-32.0 [facility] Work Phone: [phone] Nucleated RBC/100 WBC (Bld) [Ratio] 0 % 0-5 [facility] Work Phone: [phone] MCHC Auto (RBC) [Mass/Vol]on 03-28-2022 MCHC (RBC) [Mass/Vol] 32.1 g/dL 32-36 [facility] Work Phone: No Panel Informationon 03-28 Estimated GFR (MDRD) Amer 55 mL/min >60 [facility] Work Phone: [phone] Comment on above: GFR Calc Estimated GFR (MDRD) Non-Af Amer 45 mL/min >60 [facility] Work Phone: [phone] Comment on above: Non- GFR Calc Platelets bldon 03-28-2022 Platelets (Bld) [#/Vol] 202 10*3/uL 150-450 [facility] Work Phone: [phone] Serum or plasma albumin amanda urement (mass/volume)on 03-28-2022 Albumin [Mass/Vol] 3.5 g/dL 3.2-5.0 [facility] Work Phone: [phone] Serum or plasma albumin/glob ulin mass ratioon 03-28-2022 Albumin/Globulin [Mass ratio] 0.9 {ratio} 0.9-2.4 [facility] Work Phone: Serum or plasma calcium amanda urement (mass/volume)on 03-28-2022 Calcium [Mass/Vol] 8.5 mg/dL 8.5-10.1 [facility] Work Phone: [phone] Serum or plasma creatinine m easurement (mass/volume)on 03-28-2022 Creatinine [Mass/Vol] 1.58 mg/dL 0.70-1.30 [facility] Work Phone: Comment on above: The validity of the calculated GFR & GFRAA in patients over 70 years has not been determined. Clinical correlation is essential. Serum or plasma urea nitroge n measurement (mass/volume)on 03-28-2022 Urea nitrogen [Mass/Vol] 18 mg/dL 7-18 [facility] Work Phone: Thin prep Papanicolaou smear with manual screeningon 03-28-2022 Thin prep Papanicolaou smear with manual screening 22 U/L 15-37 [facility] Work Phone: [phone] Thin prep Papanicolaou smear with manual screening 5 5-15 [facility] Work Phone: [phone] Absolute lymphocyte counton 02-13-2022 Lymphocytes Auto (Unsp spec) [#/Vol] 2.00 10*3/uL 0.83-4.51 [facility] Work Phone: Basophil percentageon 2021 Basophils/100 WBC (Bld) 0.3 % 0-1 [facility] Work Phone: Chloride [Moles/Vol] 109 mmol/L 98-107 [facility] Work Phone: Eosinophils/100 WBC (Bld) 2.3 % 0-5 [facility] Work Phone: [phone] Glucose [Mass/Vol] 153 mg/dL 74-106 [facility] Work Phone: [phone] Comment on above: Fasting Glucose resu lt greater than or equal to 126 mg/dL suggests DIABETES MELLITUS per A.D.A. criteria. Neutrophils (Bld) [#/Vol] 4.6 10*3/uL 2.0-7.7 [facility] Work Phone: Neutrophils/100 WBC (Bld) 61.9 % 47-70 [facility] Work Phone: Potassium [Moles/Vol] 3.8 mmol/L 3.5-5.1 [facility] Work Phone: Sodium [Moles/Vol] 141 mmol/L 136-145 [facility] Work Phone: WBC (Bld) [#/Vol] 7.4 10*3/uL 4.4-11.0 [facility] Work Phone: Blood erythrocytes count (nu mber/volume)on 02-13-2022 RBC (Bld) [#/Vol] 4.47 10*6/uL 4.6-6.2 [facility] Work Phone: Blood hemoglobin measurement (mass/volume)on 02-13-2022 Hemoglobin (Bld) [Mass/Vol] 13.9 g/dL 13.0-16.5 [facility] Work Phone: Blood lymphocytes/100 leukoc yteson 02-13-2022 Lymphocytes/100 WBC (Bld) 27.2 % 19-41 [facility] Work Phone: Blood monocytes/100 leukocyt eson 02-13-2022 Monocytes/100 WBC (Bld) 8.2 % 0-10 [facility] Work Phone: Blood platelet mean volumeon 02-13-2022 Platelet mean volume (Bld) [Entitic vol] 11.1 fL 6.2-12.0 [facility] Work Phone: Determination of erythrocyte mean corpuscular volume (MCV)on 02-13-2022 MCV (RBC) [Entitic vol] 92.2 fL 80-94 [facility] Work Phone: Hematocrit Auto (Bld) [Volum e fraction]on 02-13-2022 Hematocrit (Bld) [Volume fraction] 41.2 % 40-54 [facility] Work Phone: [phone] Laboratory - Chemistry and C hemistry - challengeon 02-13-2022 CO2 [Moles/Vol] 28.0 mmol/L 21.0-32.0 [facility] Work Phone: [phone] Urea nitrogen/Creatinine [Mass ratio] 11.3 mg/mg 10-20 [facility] Work Phone: [phone] Laboratory - Hematology and Cell countson 02-13-2022 Erythrocyte distribution width (RBC) [Entitic vol] 54.5 fL 35.1-43.9 [facility] Work Phone: [phone] Erythrocyte distribution width (RBC) [Ratio] 15.9 % 11.6-14.6 [facility] Work Phone: [phone] Immature granulocytes/100 WBC (Bld) 0.100 % 0.0-0.9 [facility] Work Phone: [phone] Comment on above: IG% - Immature Granu locytes (promyelocytes, myelocytes and metamyelocytes) > 1% indicates that a LEFT SHIFT is Present. MCH (RBC) [Entitic mass] 31.1 pg 27.0-32.0 [facility] Work Phone: [phone] Nucleated RBC/100 WBC (Bld) [Ratio] 0 % 0-5 [facility] Work Phone: [phone] MCHC Auto (RBC) [Mass/Vol]on 02-13-2022 MCHC (RBC) [Mass/Vol] 33.7 g/dL 32-36 [facility] Work Phone: [phone] No Panel Informationon 02-13 Estimated GFR (MDRD) Amer 55 mL/min >60 [facility] Work Phone: [phone] Comment on above: GFR Calc Estimated GFR (MDRD) Non-Af Amer 45 mL/min >60 [facility] Work Phone: [phone] Comment on above: Non- GFR Calc Thyroid Stimulating Hormone (TSH) 3.71 uIU/mL 0.358-3.74 [facility] Work Phone: Platelets bldon 02-13-2022 Platelets (Bld) [#/Vol] 209 10*3/uL 150-450 [facility] Work Phone: [phone] Serum or plasma calcium amanda urement (mass/volume)on 02-13-2022 Calcium [Mass/Vol] 8.6 mg/dL 8.5-10.1 oste r [facility] Work Phone: [phone] Serum or plasma creatinine m easurement (mass/volume)on 02-13-2022 Creatinine [Mass/Vol] 1.59 mg/dL 0.70-1.30 [facility] Work Phone: Comment on above: The validity of the calculated GFR & GFRAA in patients over 70 years has not been determined. Clinical correlation is essential. Serum or plasma urea nitroge n measurement (mass/volume)on 02-13-2022 Urea nitrogen [Mass/Vol] 18 mg/dL 7-18 [facility] Work Phone: Thin prep Papanicolaou smear with manual screeningon 02-13-2022 Thin prep Papanicolaou smear with manual screening 4 5-15 [facility] Work Phone: No Panel Informationon 01-11 Prostate Specific Antigen Total 6.33 ng/mL 0.0-4.0 [facility] Work Phone: Comment on above: This test was perfor med using the TPSA assay method [facility]. Values obtained with differentassay methods cannot be used interchangably.When changing PSA assays in the course of monitoring apatient, additional sequential testing should be carriedout to confirm baseline values. Absolute lymphocyte counton 12-23-2021 Lymphocytes Auto (Unsp spec) [#/Vol] 2.19 10*3/uL 0.83-4.51 [facility] Work Phone: Basophil percentageon 2021 Basophils/100 WBC (Bld) 0.4 % 0-1 [facility] Work Phone: [phone] Chloride [Moles/Vol] 110 mmol/L 98-107 [facility] Work Phone: Eosinophils/100 WBC (Bld) 2.3 % 0-5 [facility] Work Phone: Glucose [Mass/Vol] 134 mg/dL 74-106 [facility] Work Phone: Comment on above: Fasting Glucose resu lt greater than or equal to 126 mg/dL suggests DIABETES MELLITUS per A.D.A. criteria. Neutrophils (Bld) [#/Vol] 4.2 10*3/uL 2.0-7.7 [facility] Work Phone: Neutrophils/100 WBC (Bld) 57.5 % 47-70 [facility] Work Phone: Potassium [Moles/Vol] 3.6 mmol/L 3.5-5.1 [facility] Work Phone: Sodium [Moles/Vol] 142 mmol/L 136-145 [facility] Work Phone: WBC (Bld) [#/Vol] 7.3 10*3/uL 4.4-11.0 [facility] Work Phone: Blood erythrocytes count (nu mber/volume)on 12-23-2021 RBC (Bld) [#/Vol] 4.37 10*6/uL 4.6-6.2 [facility] Work Phone: Blood hemoglobin measurement (mass/volume)on 12-23-2021 Hemoglobin (Bld) [Mass/Vol] 13.2 g/dL 13.0-16.5 [facility] Work Phone: Blood lymphocytes/100 leukoc yteson 12-23-2021 Lymphocytes/100 WBC (Bld) 30.2 % 19-41 [facility] Work Phone: Blood monocytes/100 leukocyt eson 12-23-2021 Monocytes/100 WBC (Bld) 9.5 % 0-10 [facility] Work Phone: Blood platelet mean volumeon 12-23-2021 Platelet mean volume (Bld) [Entitic vol] 11.1 fL 6.2-12.0 [facility] Work Phone: [phone] Determination of erythrocyte mean corpuscular volume (MCV)on 12-23-2021 MCV (RBC) [Entitic vol] 91.3 fL 80-94 [facility] Work Phone: [phone] Glucose Glucometer (BldC) [M ass/Vol]on 12-23-2021 Glucose [Mass/Vol] 124 mg/dL 74-106 [facility] Work Phone: [phone] Comment on above: MANAGEMENT OF PATIEN T CARE PER NURSING PROTOCOL Hematocrit Auto (Bld) [Volum e fraction]on 12-23-2021 Hematocrit (Bld) [Volume fraction] 39.9 % 40-54 [facility] Work Phone: [phone] Laboratory - Chemistry and C hemistry - challengeon 12-23-2021 CO2 [Moles/Vol] 28.0 mmol/L 21.0-32.0 [facility] Work Phone: [phone] Urea nitrogen/Creatinine [Mass ratio] 20.1 mg/mg 10-20 [facility] Work Phone: [phone] Laboratory - Hematology and Cell countson 12-23-2021 Erythrocyte distribution width (RBC) [Entitic vol] 51.0 fL 35.1-43.9 [facility] Work Phone: [phone] Erythrocyte distribution width (RBC) [Ratio] 15.3 % 11.6-14.6 [facility] Work Phone: [phone] Immature granulocytes/100 WBC (Bld) 0.100 % 0.0-0.9 [facility] Work Phone: [phone] Comment on above: IG% - Immature Granu locytes (promyelocytes, myelocytes and metamyelocytes) > 1% indicates that a LEFT SHIFT is Present. MCH (RBC) [Entitic mass] 30.2 pg 27.0-32.0 [facility] Work Phone: [phone] Nucleated RBC/100 WBC (Bld) [Ratio] 0 % 0-5 [facility] Work Phone: MCHC Auto (RBC) [Mass/Vol]on 12-23-2021 MCHC (RBC) [Mass/Vol] 33.1 g/dL 32-36 [facility] Work Phone: No Panel Informationon 12-23 Estimated Creatinine Clearance Calc 34.22 ml/min [facility] Work Phone: Estimated GFR (MDRD) Amer 51 mL/min >60 [facility] Work Phone: Comment on above: GFR Calc Estimated GFR (MDRD) Non-Af Amer 42 mL/min >60 [facility] Work Phone: Comment on above: Non- GFR Calc Platelets bldon 12-23-2021 Platelets (Bld) [#/Vol] 179 10*3/uL 150-450 [facility] Work Phone: Serum or plasma calcium amanda urement (mass/volume)on 12-23-2021 Calcium [Mass/Vol] 8.3 mg/dL 8.5-10.1 [facility] Work Phone: Serum or plasma creatinine m easurement (mass/volume)on 12-23-2021 Creatinine [Mass/Vol] 1.69 mg/dL 0.70-1.30 [facility] Work Phone: Comment on above: The validity of the calculated GFR & GFRAA in patients over 70 years has not been determined. Clinical correlation is essential. Serum or plasma urea nitroge n measurement (mass/volume)on 12-23-2021 Urea nitrogen [Mass/Vol] 34 mg/dL 7-18 [facility] Work Phone: Thin prep Papanicolaou smear with manual screeningon 12-23-2021 Thin prep Papanicolaou smear with manual screening 4 5-15 [facility] Work Phone: No Panel Informationon 12-21 Troponin I High Sensitivity 16 pg/mL 3.0-78.0 [facility] Work Phone: Comment on above: Please Note: New Vira t Units and Gender Specific Reference Ranges. For more information see Policy Stat Procedure [place] High Sensitivity Troponin (TNIH) and attachments. Absolute lymphocyte counton 12-13-2021 Lymphocytes Auto (Unsp spec) [#/Vol] 2.75 10*3/uL 0.83-4.51 [facility] Work Phone: Basophil percentageon 2021 Basophils/100 WBC (Bld) 0.2 % 0-1 [facility] Work Phone: Chloride [Moles/Vol] 107 mmol/L 98-107 [facility] Work Phone: Eosinophils/100 WBC (Bld) 2.0 % 0-5 [facility] Work Phone: Glucose [Mass/Vol] 125 mg/dL 74-106 [facility] Work Phone: Comment on above: Fasting Glucose resu lt from 100 to 125 mg/dL suggests IMPAIRED HOMEOSTASIS per A.D.A. criteria. Neutrophils (Bld) [#/Vol] 4.5 10*3/uL 2.0-7.7 [facility] Work Phone: Neutrophils/100 WBC (Bld) 53.9 % 47-70 [facility] Work Phone: Potassium [Moles/Vol] 3.8 mmol/L 3.5-5.1 [facility] Work Phone: Sodium [Moles/Vol] 140 mmol/L 136-145 [facility] Work Phone: WBC (Bld) [#/Vol] 8.3 10*3/uL 4.4-11.0 [facility] Work Phone: Blood erythrocytes count (nu mber/volume)on 12-13-2021 RBC (Bld) [#/Vol] 4.81 10*6/uL 4.6-6.2 [facility] Work Phone: Blood hemoglobin measurement (mass/volume)on 12-13-2021 Hemoglobin (Bld) [Mass/Vol] 14.7 g/dL 13.0-16.5 [facility] Work Phone: Blood lymphocytes/100 leukoc yteson 12-13-2021 Lymphocytes/100 WBC (Bld) 33.0 % 19-41 [facility] Work Phone: Blood monocytes/100 leukocyt eson 12-13-2021 Monocytes/100 WBC (Bld) 10.7 % 0-10 [facility] Work Phone: Blood platelet mean volumeon 12-13-2021 Platelet mean volume (Bld) [Entitic vol] 10.9 fL 6.2-12.0 [facility] Work Phone: Determination of erythrocyte mean corpuscular volume (MCV)on 12-13-2021 MCV (RBC) [Entitic vol] 90.0 fL 80-94 [facility] Work Phone: Hematocrit Auto (Bld) [Volum e fraction]on 12-13-2021 Hematocrit (Bld) [Volume fraction] 43.3 % 40-54 [facility] Work Phone: INR in Blood by Coagulation assayon 12-13-2021 INR Coag (Bld) [Relative time] 1.1 {INR} [facility] Work Phone: Laboratory - Chemistry and C hemistry - challengeon 12-13-2021 CO2 [Moles/Vol] 29.0 mmol/L 21.0-32.0 [facility] Work Phone: Urea nitrogen/Creatinine [Mass ratio] 9.2 mg/mg 10-20 [facility] Work Phone: Laboratory - Coagulationon 0 12-13-2021 aPTT Coag (Bld) [Time] 37.3 s 24.1-36.2 [facility] Work Phone: PT Coag (PPP) [Time] 13.8 s 11.7-14.9 [facility] Work Phone: Laboratory - Hematology and Cell countson 12-13-2021 Erythrocyte distribution width (RBC) [Entitic vol] 50.0 fL 35.1-43.9 [facility] Work Phone: [phone] Erythrocyte distribution width (RBC) [Ratio] 15.1 % 11.6-14.6 [facility] Work Phone: [phone] Immature granulocytes/100 WBC (Bld) 0.200 % 0.0-0.9 [facility] Work Phone: [phone] Comment on above: IG% - Immature Granu locytes (promyelocytes, myelocytes and metamyelocytes) > 1% indicates that a LEFT SHIFT is Present. MCH (RBC) [Entitic mass] 30.6 pg 27.0-32.0 [facility] Work Phone: [phone] Nucleated RBC/100 WBC (Bld) [Ratio] 0 % 0-5 [facility] Work Phone: [phone] MCHC Auto (RBC) [Mass/Vol]on 12-13-2021 MCHC (RBC) [Mass/Vol] 33.9 g/dL 32-36 [facility] Work Phone: No Panel Informationon 12-13 Estimated GFR (MDRD) Amer 49 mL/min >60 [facility] Work Phone: Comment on above: GFR Calc Estimated GFR (MDRD) Non-Af Amer 41 mL/min >60 [facility] Work Phone: Comment on above: Non- GFR Calc Platelets bldon 12-13-2021 Platelets (Bld) [#/Vol] 199 10*3/uL 150-450 [facility] Work Phone: [phone] Serum or plasma calcium amanda urement (mass/volume)on 12-13-2021 Calcium [Mass/Vol] 9.1 mg/dL 8.5-10.1 [facility] Work Phone: [phone] Serum or plasma creatinine m easurement (mass/volume)on 12-13-2021 Creatinine [Mass/Vol] 1.74 mg/dL 0.70-1.30 [facility] Work Phone: [phone] Comment on above: The validity of the calculated GFR & GFRAA in patients over 70 years has not been determined. Clinical correlation is essential. Serum or plasma urea nitroge n measurement (mass/volume)on 12-13-2021 Urea nitrogen [Mass/Vol] 16 mg/dL 7-18 [facility] Work Phone: Thin prep Papanicolaou smear with manual screeningon 12-13-2021 Thin prep Papanicolaou smear with manual screening 4 5-15 [facility] Work Phone: Basophil percentageon 2021 Basophil percentage 2.9 mg/dL 2.5-4.9 [facility] Work Phone: Chloride [Moles/Vol] 109 mmol/L 98-107 [facility] Work Phone: Glucose [Mass/Vol] 127 mg/dL 74-106 [facility] Work Phone: Comment on above: Fasting Glucose resu lt greater than or equal to 126 mg/dL suggests DIABETES MELLITUS per A.D.A. criteria. Potassium [Moles/Vol] 3.7 mmol/L 3.5-5.1 [facility] Work Phone: Sodium [Moles/Vol] 142 mmol/L 136-145 [facility] Work Phone: Laboratory - Chemistry and C hemistry - challengeon 10-13-2021 CO2 [Moles/Vol] 29.0 mmol/L 21.0-32.0 [facility] Work Phone: Urea nitrogen/Creatinine [Mass ratio] 12.7 mg/mg 10-20 [facility] Work Phone: No Panel Informationon 10-13 Estimated Creatinine Clearance Calc 35.88 ml/min [facility] Work Phone: Estimated GFR (MDRD) Amer 58 mL/min >60 [facility] Work Phone: Comment on above: GFR Calc Estimated GFR (MDRD) Non-Af Amer 48 mL/min >60 [facility] Work Phone: [phone] Comment on above: Non- GFR Calc Serum or plasma albumin amanda urement (mass/volume)on 10-13-2021 Albumin [Mass/Vol] 3.8 g/dL 3.2-5.0 [facility] Work Phone: Serum or plasma calcium amanda urement (mass/volume)on 10-13-2021 Calcium [Mass/Vol] 9.0 mg/dL 8.5-10.1 [facility] Work Phone: [phone] Serum or plasma creatinine m easurement (mass/volume)on 10-13-2021 Creatinine [Mass/Vol] 1.50 mg/dL 0.70-1.30 [facility] Work Phone: Comment on above: The validity of the calculated GFR & GFRAA in patients over 70 years has not been determined. Clinical correlation is essential. Serum or plasma urea nitroge n measurement (mass/volume)on 10-13-2021 Urea nitrogen [Mass/Vol] 19 mg/dL 7-18 [facility] Work Phone: Urine creatinine measurement (mass/volume)on 10-13-2021 Creatinine (U) [Mass/Vol] 45.40 mg/dL NO RANGE EST. [facility] Work Phone: Urine protein measurement (m ass/volume)on 10-13-2021 Protein (U) [Mass/Vol] 65.4 mg/dL 0.0-11.8 [facility] Work Phone: [phone] Urine protein/creatinine mas s ratioon 10-13-2021 Protein/Creatinine (U) [Mass ratio] 1441 mg/g CRE 0-200 [facility] Work Phone: Absolute lymphocyte counton 09-26-2021 Lymphocytes Auto (Unsp spec) [#/Vol] 2.16 10*3/uL 0.83-4.51 [facility] Work Phone: Basophil percentageon 2020 Bilirubin [Mass/Vol] 0.30 mg/dL 0.20-1.00 [facility] Work Phone: [phone] Comment on above: For patients on eltr ombopag therapy, use of Dimension [place] TBIL is not recommended. Chloride [Moles/Vol] 107 mmol/L 98-107 [facility] Work Phone: Eosinophils/100 WBC (Bld) 3.4 % 0-5 [facility] Work Phone: Glucose [Mass/Vol] 171 mg/dL 74-106 [facility] Work Phone: Comment on above: Fasting Glucose resu lt greater than or equal to 126 mg/dL suggests DIABETES MELLITUS per A.D.A. criteria.Please note revised GLUCOSE reference range effective 2017. Neutrophils (Bld) [#/Vol] 2.8 10*3/uL 2.0-7.7 [facility] Work Phone: Potassium [Moles/Vol] 3.7 mmol/L 3.5-5.1 [facility] Work Phone: Protein [Mass/Vol] 7.5 g/dL 6.4-8.2 [facility] Work Phone: Sodium [Moles/Vol] 144 mmol/L 136-145 [facility] Work Phone: WBC (Bld) [#/Vol] 5.8 10*3/uL 4.4-11.0 [facility] Work Phone: Blood erythrocytes count (nu mber/volume)on 09-26-2021 RBC (Bld) [#/Vol] 4.35 10*6/uL 4.6-6.2 [facility] Work Phone: Blood hemoglobin measurement (mass/volume)on 09-26-2021 Hemoglobin (Bld) [Mass/Vol] 13.2 g/dL 13.0-16.5 [facility] Work Phone: Blood lymphocytes/100 leukoc yteson 09-26-2021 Lymphocytes/100 WBC (Bld) 37.1 % 19-41 [facility] Work Phone: Blood monocytes/100 leukocyt eson 09-26-2021 Monocytes/100 WBC (Bld) 10.0 % 0-10 [facility] Work Phone: Blood platelet mean volumeon 09-26-2021 Platelet mean volume (Bld) [Entitic vol] 10.7 fL 6.2-12.0 [facility] Work Phone: Determination of erythrocyte mean corpuscular volume (MCV)on 09-26-2021 MCV (RBC) [Entitic vol] 94.0 fL 80-94 [facility] Work Phone: Hematocrit Auto (Bld) [Volum e fraction]on 09-26-2021 Hematocrit (Bld) [Volume fraction] 40.9 % 40-54 [facility] Work Phone: Laboratory - Chemistry and C hemistry - challengeon 09-26-2021 ALP [Catalytic activity/Vol] 57 U/L 45-117 [facility] Work Phone: ALT [Catalytic activity/Vol] 35 U/L 16-61 [facility] Work Phone: CO2 [Moles/Vol] 30.0 mmol/L 21.0-32.0 [facility] Work Phone: Globulin (S) [Mass/Vol] 4.1 g/dL 2.2-4.2 [facility] Work Phone: Urea nitrogen/Creatinine [Mass ratio] 11.0 mg/mg 10-20 [facility] Work Phone: Laboratory - Hematology and Cell countson 09-26-2021 Basophils/100 WBC (Unsp spec) 0.3 % 0-1 [facility] Work Phone: Erythrocyte distribution width (RBC) [Entitic vol] 50.8 fL 35.1-43.9 [facility] Work Phone: Erythrocyte distribution width (RBC) [Ratio] 14.6 % 11.6-14.6 [facility] Work Phone: Immature granulocytes/100 WBC (Bld) 0.300 % 0.0-0.9 [facility] Work Phone: Comment on above: IG% - Immature Granu locytes (promyelocytes, myelocytes and metamyelocytes) > 1% indicates that a LEFT SHIFT is Present. MCH (RBC) [Entitic mass] 30.3 pg 27.0-32.0 [facility] Work Phone: Neutrophils/100 WBC (Bld) 48.9 % 47-70 [facility] Work Phone: [phone] Nucleated RBC/100 WBC (Bld) [Ratio] 0 % 0-5 [facility] Work Phone: [phone] MCHC Auto (RBC) [Mass/Vol]on 09-26-2021 MCHC (RBC) [Mass/Vol] 32.3 g/dL 32-36 [facility] Work Phone: [phone] No Panel Informationon 09-26 Estimated GFR (MDRD) Amer 60 mL/min >60 [facility] Work Phone: [phone] Comment on above: GFR Calc Estimated GFR (MDRD) Non-Af Amer 50 mL/min >60 [facility] Work Phone: [phone] Comment on above: Non- GFR Calc Platelets bldon 09-26-2021 Platelets (Bld) [#/Vol] 190 10*3/uL 150-450 [facility] Work Phone: [phone] Serum or plasma albumin amanda urement (mass/volume)on 09-26-2021 Albumin [Mass/Vol] 3.4 g/dL 3.2-5.0 [facility] Work Phone: [phone] Serum or plasma albumin/glob ulin mass ratioon 09-26-2021 Albumin/Globulin [Mass ratio] 0.8 {ratio} 0.9-2.4 [facility] Work Phone: [phone] Serum or plasma calcium amanda urement (mass/volume)on 09-26-2021 Calcium [Mass/Vol] 8.8 mg/dL 8.5-10.1 [facility] Work Phone: [phone] Serum or plasma creatinine m easurement (mass/volume)on 09-26-2021 Creatinine [Mass/Vol] 1.46 mg/dL 0.70-1.30 [facility] Work Phone: Comment on above: The validity of the calculated GFR & GFRAA in patients over 70 years has not been determined. Clinical correlation is essential. Serum or plasma urea nitroge n measurement (mass/volume)on 09-26-2021 Urea nitrogen [Mass/Vol] 16 mg/dL 7-18 [facility] Work Phone: Thin prep Papanicolaou smear with manual screeningon 09-26-2021 Thin prep Papanicolaou smear with manual screening 29 U/L 15-37 [facility] [facility] Work Phone: Thin prep Papanicolaou smear with manual screening 7 5-15 [facility] Work Phone: CASE MANAGEMon 02-24-2020 CASE MANAGEM HNO ID: [id number] Author: Brandee Ortega) OCTAVIO Bellamy Service: Care Management Author Type: Registered Nurse [...] 24, 2020 TIME: 2:39 PM PAGER/CONTACT #: [phone] [facility] CASE MANAGEM HNO ID: [id number] Author: Nadine Ramirez Service: Care Management Author Type: ? 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 Falls appear to be provoked, reports tripped [...] mg by mouth DAILY (6 AM). Ipratropium Barnwell (ATROVENT) 0.03 % nasal spray Use 1 Buckeye in the nose as directed. glimepiride (AMARYL) [...] at [facility] main [place]. PT/OT and disposition as recommended. Will sign off. Please page/call with questions. Arnaud Llanes MD Staff Neurologist Arnaud Llanes MD [facility], Department of Neurology CC: Referring Physician: No referring provider defined for this encounter. PCP: Jayme Yang MD [address] [place] [address] Normal [facility] Glucose Meteron 02-24-2020 Glucose [Mass/Vol] 138 mg/dL High 70-99 [facility] Comment on above: Result Comment: RN N OTIFIED Performed By: #### G LMET #### [place] [address] PLAN OF CAREon 02-24-2020 PLAN OF CARE HNO ID: [id number] Author: Moerna Szymanski (Pharmacist) Service: Pharmacy Author Type: Pharmacist [...] tablet Commonly known as: HYDRODIURIL, ESIDRIX Ipratropium Barnwell 0.03 % nasal spray Commonly known as: ATROVENT isosorbide mononitrate ER 60 mg 24 hr tablet Commonly known as: IMDUR lisinopril 40 mg tablet Commonly known as: ZESTRIL, PRINIVIL metFORMIN 1,000 mg tablet Commonly known as: GLUCOPHAGE rosuvastatin 20 mg tablet Commonly known as: CRESTOR Where to Get Your Medications These medications were sent to [facility] [address] [place] [address] - [facility] - [phone] [place] [address] ? polyethylene glycol 3350 17 gram packet ? senna-docusate 8.6-50 mg per tablet Normal [facility] THERAPY NTon 02-24-2020 THERAPY NT HNO ID: [id number] Author: Mamie (Government Guard) FELY Manzanares/INDUSTRIAL PSYCHOLOGY TEACHER Service: Speech/Swallow Author Type: Speech Language Pathologist Type: Therapy (PT/OT/Speech/Resp) Filed: 02/24/2020 12:37 PM Note Text: Speech Therapy Treatment SERVICE DATE: 02/24/2020 SERVICE TIME: 1115 to 1132 ROOM: [place] [address] Nursing Recommendations: Reinforce use of swallowing strategies [...] Dysphagia, oral phase Interventions Provided: Dysphagia Therapy (89045) $ Dysphagia Therapy (32838) Billed Units: 1 unit Skilled Interventions: Provided [...] for this therapy evaluation/treatment. SIGNATURE: Mamie Manzanares CCC-INDUSTRIAL PSYCHOLOGY TEACHER PATIENT NAME: Megan Gimenez DATE: February 24, 2020 TIME: 12:18 PM Normal [facility] THERAPY NT HNO ID: [id number] Author: Dianna Tidwell Service: Physical Therapy Author Type: Physical Therapist Type: Therapy (PT/OT/Speech/Resp) Filed: 02/24/2020 12:05 PM Note Text: Physical Therapy Evaluation SERVICE DATE: 02/24/2020 SERVICE TIME: 3250 to 9437 ROOM: [id number] Recommended Discharge Disposition: Home Recommended Discharge Disposition [...] Diagnosis: Reduced mobility-other Interventions Provided: Evaluation;Therapeutic Exercise (98359) $ Evaluation-Moderate (31253) Billed Units: 1 unit History and examination of body systems see assessment section above. This patient?s clinical presentation is evolving. The patient required a moderate complexity evaluation. Therapeutic Exercise (22495) Treatment Minutes: 8 1 unit Skilled Intervention(s): [facility]. He was encouraged to be [...] able to maintain balance while turning head/trunk -HLM: 7: Walk 25 feet or more Please see discipline specific clinical documentation flowsheet for complete details for this therapy evaluation/treatment. SIGNATURE: Dianna Tidwell PT PATIENT NAME: Megan Gimenez DATE: February 24, 2020 TIME: 12:01 PM Normal [facility] Basic Metabolic Panelon 05- Anion gap [Moles/Vol] 14 mmol/L Normal 9-18 [facility] Comment on above: Performed By: #### B MP ####[place] [address] Calcium [Mass/Vol] 8.3 mg/dL Low 8.5-10.2 [facility] Comment on above: Performed By: #### B MP ####[place] [address] Chloride [Moles/Vol] 105 mmol/L Normal 97-105 [facility] Comment on above: Performed By: #### B MP ####[facility] [place] [address] CO2 Blood 25 mmol/L Normal 22-30 [facility] Comment on above: Performed By: #### B MP ####[place] [address] Creatinine [Mass/Vol] 1.23 mg/dL High 0.73-1.22 [facility] Comment on above: Performed By: #### B MP ####[address] [address] Glucose [Mass/Vol] 86 mg/dL Normal 74-99 [facility] Comment on above: Result Comment: The [place] Diabetes Association (ADA) provides guidance for cutoff [...] Standards of Medical Care in Diabetes 2016; [place] [employer] Association. Diabetes Care. 2016;39(Suppl 1). Performed By: #### B MP ####[address] [address] Potassium [Moles/Vol] see below Normal 3.7-5.1 [facility] Comment on above: Result Comment: Unab le to assay. Specimen Hemolyzed Performed By: #### B MP ####[address] [address] Sodium [Moles/Vol] 144 mmol/L Normal 136-144 [facility] Comment on above: Performed By: #### B MP ####[address] [address] Urea nitrogen [Mass/Vol] 15 mg/dL Normal 9-24 [facility] Comment on above: Performed By: #### B MP ####[address] [address] Hemogramon 02-23-2020 Erythrocyte distribution width (RBC) [Ratio] 16.6 % High 11.6-14.4 [facility] Comment on above: Performed By: #### C BC1 ####[address] [address] Hematocrit (Bld) [Volume fraction] 37.1 % Low 40.1-51.0 [facility] Comment on above: Performed By: #### C BC1 ####[place] [address] [place], [place] [address] Hemoglobin (Bld) [Mass/Vol] 12.1 g/dL Low 13.7-17.5 [facility] Comment on above: Performed By: #### C BC1 ####[facility] [place], [place] [address] MCH (RBC) [Entitic mass] 29.1 pg Normal 25.7-32.2 [facility] Comment on above: Performed By: #### C BC1 ####[facility] [place], [place] [address] MCHC (RBC) [Mass/Vol] 32.6 % Normal 32.3-36.5 [facility] Comment on above: Performed By: #### C BC1 ####[address] [address] MCV (RBC) [Entitic vol] 89.2 fL Normal 83.2-95.6 [facility] Comment on above: Performed By: #### C BC1 ####[address] [address] Platelet mean volume (Bld) [Entitic vol] 11.2 fL Normal 8.7-12.0 [facility] Comment on above: Performed By: #### C BC1 ####[address] [address] Platelets (Bld) [#/Vol] 240 thou/cmm Normal 141-365 [facility] Comment on above: Performed By: #### C BC1 ####[address] [address] RBC (Bld) [#/Vol] 4.16 mil/cmm Low 4.63-6.08 [facility] Comment on above: Performed By: #### C BC1 ####[address] [address] RDW SD 53.9 fl High 36.1-45.8 [facility] Comment on above: Performed By: #### C BC1 ####[address] [address] WBC (Bld) [#/Vol] 8.26 thou/cmm Normal 4.23-9.07 [facility] Comment on above: Performed By: #### C BC1 ####[facility]1 [place] [id number] MDRD GFRon 02-23-2020 GFR/1.73 sq M predicted among non-blacks MDRD (S/P/Bld) [Vol rate/Area] 57.28 mL/min/{1.73_m2} Normal >60mL/min/ 1.73m2 [facility] Comment on above: Result Comment: If t he patient is , multiply the result by 1.210. Performed By: #### G LMET #### [place] [address] Magnesium Bloodon 02-23-2020 Magnesium [Mass/Vol] 1.7 mg/dL Normal 1.7-2.3 [facility] Comment on above: Performed By: #### M AG ####[place] [address] NURSING PROGon 02-23-2020 NURSING PROG HNO ID: [id number] Author: Danielle (Rn) OCTAVIO Sandoval Service: ? Author Type: Registered Nurse Type: Nursing Progress Note Filed: 02/23/2020 4:12 AM Note Text: Nursing Progress Note Patient Name: Megan Gimenez Patient Location: [place] [id number] Daily Note: 0012; RN paged sound [phone] SCHEDULE ANNOUNCER Jimmy to come see pt due to [...] stating he will be going back to [facility] tomorrow morning. Pt continues to refuse to answer any orientation questions for RN. RN will continue to monitor. This note was completed by: Danielle Sandoval RN [facility] PLAN OF CAREon 02-23-2020 PLAN OF CARE HNO ID: [id number] Author: Arnaud Llanes MD Service: Neurology Stroke [...] to follow. Arnaud Llanes MD Staff Neurologist [facility] PROGRESSon 02-23-2020 PROGRESS HNO ID: [id number] Author: Laureano Linton Service: Hospital Medicine Author Type: Physician Type: Progress Notes Filed: 02/23/2020 3:15 PM Note Text: DEPARTMENT OF HOSPITAL MEDICINE PROGRESS NOTE SERVICE DATE: 02/23/2020 SERVICE TIME: 3:01 PM Hospital Medicine/Primary Attending: Laureano Linton MD NIGHT AND WEEKEND COVERAGE: After 7pm please page [phone] CHIEF COMPLAINT: Tremors SUBJECTIVE: Patient is awake [...] or extraconal mass. ?Correlate with clinical symptoms Registration Coordinator: HARDIK ? Transcribe Date/Time: Feb 22 2020 [...] 23, 2020 TIME: 3:01 PM PAGER/CONTACT #: [phone] Normal [facility] PROGRESS HNO ID: [id number] Author: Shiv Brown APRN.EMMANUEL Service: Hospital Medicine Author Type: Nurse Practitioner [...] February 23, 2020 12:29 AM Shiv Brown APRN.MINE TECHNICIAN Normal [facility] THERAPY NTon 02-23-2020 THERAPY NT HNO ID: [id number] Author: Mamie (Government Guard) FELY Manzanares/INDUSTRIAL PSYCHOLOGY TEACHER Service: Speech/Swallow Author Type: Speech Language Pathologist Type: Therapy (PT/OT/Speech/Resp) Filed: 02/23/2020 9:49 AM Note Text: Speech Therapy Clinical Swallow Evaluation SERVICE DATE: 02/23/2020 SERVICE TIME: 899 to 928 ROOM: [place] [address] Nursing Recommendations: Reinforce use of swallowing strategies [...] oral phase Interventions Provided: Clinical Swallow Evaluation (51758) $ Clinical Swallow Evaluation (12907) Billed Units: 1 unit Total Treatment Time [...] for this therapy evaluation/treatment. SIGNATURE: Mamie Manzanares CCC-INDUSTRIAL PSYCHOLOGY TEACHER PATIENT NAME: Megan Gimenez DATE: February 23, 2020 TIME: 9:36 AM [facility] ALLIED HEALTHon 02-22-2020 ALLIED HEALTH HNO ID: [id number] Author: Chaplain Wyatt (Chaplain) Service: Spiritual Care Author Type: Type: Allied Health Filed: 02/22/2020 1:21 AM Note Text: SPIRITUALCARE Spiritual Care Visit- Brief Note Name: Megan Gimenez Date: February 22, 2020 Notes: Trauma 2 fall Staff evaluating patient Follow up needed Developer Advisor Signature: Chaplain Edmundo To contact the Spiritual Care Department: Please call [phone] or Page the On-Call Developer Advisor at pager [phone] Thank you for the opportunity to be of service. This is an electronically created document. IF PRINTED, PLEASE DO NOT REMOVE FROM THE CHART OR MODIFY PRINTED COPY. [facility] Activated PTTon 02-22-2020 aPTT Coag (Bld) [Time] 28.7 s Normal 23.0-32.4 [facility] Comment on above: Result Comment: Unfr actionated [...] laboratory APTT reagent in use throughout the [facility]. Performed By: #### G LMET #### [place] [address] aPTT Coag (Bld) [Time] 29.1 s Normal 23.0-32.4 [facility] Comment on above: Result Comment: Unfr actionated [...] laboratory APTT reagent in use throughout the [facility]. 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 Last discharge within 30 days: No Advance Directive: Current Advance Directive: Health Care Power of Valve Fitter;Living Will In Chart: No Accounting Systems Analyst Attempted to Assist with AD Completion: No [...] the patient:: Spouse Name of Informant: : Natasharuba Antunez [phone] Functional Status: Independent Does Patient Currently Receive Any Community Services or Home Care?: None Equipment Prior to Admission: Aerosols/Intermittent positive breathing/Respiratory Treatments;Walker;Glucomet er SOCIAL: Living Arrangements: Home Lives With: Spouse Financial Resources: RetiredPrimary Contact: Extended Emergency Contact Information Primary Emergency Contact: Natasha Gimenez Address: [address] [place] [address] Mobile Relation: Spouse Supportive Patient Contact:: Yes [...] plan for meeting these needs: Home Vs [facility] Patient's perception of need for this admission: Fall, Alt Mental Status Medication Adherance I am convinced of the importance of my prescription medication: 0 - Agree Completely I worry that my prescription medication will do more harm than good to me : 0 - Disagree Completely I feel financially burdened by my kke-cf-fydasr expenses for my prescription medication:: 0 - Disagree Completely Risk Score: 0 Patient is categorized as: Low risk < 2 Are you interested in bedside delivery of your medications? No Is Patient Psychosocially Complex?: No ASSESSMENT AND PLAN: Medical Needs: Medical Needs: Two or more chronic diseases Psychosocial Needs: Psychosocial Needs: None FREEDOM OF CHOICE EXPLAINED: Avenue of Choice Given: Yes Level of Care Discussed: Home Care;Residential Facility Financial Disclosure Provided: Yes Financial Disclosure Comments: Informed of [facility] connected facilities POTENTIAL TRANSITION PLANS Home Care;Residential Facility/Intermediate Care Facility Information was obtained from [...] 22, 2020 TIME: 12:31 PM PAGER/CONTACT #: [phone] Normal [facility] CT BRAIN WO IVCONon 02-22-20 CT BRAIN WO IVCON * * *Final Report* * * DATE OF EXAM: Feb 22 2020 1:29AM [facility] 0504 - CT BRAIN WO IVCON / [...] soft tissue contusion. No acute intracranial abnormality. Registration Coordinator: HARDIK Transcribe Date/Time: Feb 22 2020 1:53A Dictated by : ANA MARIA ISABEL MD This examination was interpreted and the report reviewed and electronically signed by: ANA MARIA ISABEL MD on Feb 22 2020 1:56AM EST Normal [facility] Comprehensive Metabolic Pane chanda 02-22-2020 Albumin [Mass/Vol] 3.5 g/dL Low 3.9-4.9 [facility] Comment on above: Performed By: #### G LMET #### [facility] 1 [place], [place] [address] ALP [Catalytic activity/Vol] 44 U/L Normal 38-113 [facility] Comment on above: Performed By: #### G LMET #### [facility] 1 [place], [place] [address] ALT [Catalytic activity/Vol] 35 U/L Normal 10-54 [facility] Comment on above: Performed By: #### G LMET #### [facility] 1 [place], [place] [address] Anion gap [Moles/Vol] 11 mmol/L Normal 9-18 [facility] Comment on above: Performed By: #### G LMET #### [facility] [address] [place], [place] [address] AST [Catalytic activity/Vol] 48 U/L High 14-40 [facility] Comment on above: Performed By: #### G LMET #### [facility] [address] [place], [place] [address] Bilirubin [Mass/Vol] 0.2 mg/dL Normal 0.2-1.3 [facility] Comment on above: Performed By: #### G LMET #### [facility] 1 [place], [place] [address] Calcium [Mass/Vol] 8.2 mg/dL Low 8.5-10.2 [facility] Comment on above: Performed By: #### G LMET #### [facility] 1 [place], [place] [address] Chloride [Moles/Vol] 107 mmol/L High 97-105 [facility] Comment on above: Performed By: #### G LMET #### [facility] [address] [place], [place] [address] CO2 Blood 26 mmol/L Normal 22-30 [facility] Comment on above: Performed By: #### G LMET #### [facility] [address] [place], [place] [address] Creatinine [Mass/Vol] 1.42 mg/dL High 0.73-1.22 [facility] Comment on above: Performed By: #### G LMET #### [facility] [address] [place], [place] [address] Glucose [Mass/Vol] 87 mg/dL Normal 74-99 [facility] Comment on above: Result Comment: The [place] Diabetes Association (ADA) provides guidance for cutoff [...] Standards of Medical Care in Diabetes 2016; [place] [employer]. Diabetes Care. 2016;39(Suppl 1). Performed By: #### G LMET #### [facility] [address] [place], [place] [address] Potassium [Moles/Vol] 3.1 mmol/L Low 3.7-5.1 [facility] Comment on above: Performed By: #### G LMET #### [facility] [address] [place], [place] [address] Protein [Mass/Vol] 6.2 g/dL Low 6.3-8.0 [facility] Comment on above: Performed By: #### G LMET #### [facility] [address] [place], [place] [address] Sodium [Moles/Vol] 144 mmol/L Normal 136-144 [facility] Comment on above: Performed By: #### G LMET #### [facility] [address] [place], [place] [address] Urea nitrogen [Mass/Vol] 22 mg/dL Normal 9-24 [facility] Comment on above: Performed By: #### G LMET #### [facility] [address] [place], [place] [address] ED NOTEon 02-22-2020 ED NOTE HNO ID: [id number] Author: Tracie HolmanRn) Cedric RN Service: Emergency Medicine Author Type: Registered Nurse Type: ED Notes Filed: 02/22/2020 2:29 PM Note Text: Rn Richa schwarzre of pts mental status changes and the Dr Linton is awre also pt given 20mg ivp hydralazine. Room is not clean yet Normal [facility] ED NOTE HNO ID: [id number] Author: Tracie HolmanRn) OCTAVIO Steele Service: Emergency Medicine Author Type: Registered Nurse Type: ED Notes Filed: 02/22/2020 2:11 PM Note Text: Dr Linton aware of pts mentation. No new orders at this time. Normal [facility] ED NOTE HNO ID: [id number] Author: Tracie HolmanRn) Cedric, RN Service: Emergency Medicine Author Type: Registered Nurse Type: ED Notes Filed: 02/22/2020 2:09 PM Note Text: Pt thinks it's 1970 and going to war. Pt states he sees people running at [facility] they are being shot at. Normal [facility] ED NOTE HNO ID: [id number] Author: Tracie HolmanRn) Cedric, RN Service: Emergency Medicine Author Type: Registered Nurse Type: ED Notes Filed: 02/22/2020 2:07 PM Note Text: Sound paged, pts mental status concerns Normal [facility] ED NOTE HNO ID: [id number] Author: Tracie HolmanRn) Cedric, RN Service: Emergency Medicine Author Type: Registered Nurse Type: ED Notes Filed: 02/22/2020 1:59 PM Note Text: Updated pts that he has a room assigned and gave room number and floor phone number Normal [facility] ED NOTE HNO ID: [id number] Author: Tracie HolmanRnBritt Steele RN Service: Emergency Medicine Author Type: Registered Nurse Type: ED Notes Filed: 02/22/2020 1:45 PM Note Text: SPOKE TO DR LINTON ABOUT PTS BP, HE WILL REVIEW PTS CHART AND ENTER NEW ORDERS [facility] ED NOTE HNO ID: [id number] Author: Tracie HolmanRnBritt Steele RN Service: Emergency Medicine Author Type: Registered Nurse Type: ED Notes Filed: 02/22/2020 1:33 PM Note Text: MD PAGED FOR BP 202/87 [facility] ED NOTE HNO ID: [id number] Author: Tracie HolmanRnBritt Steele RN Service: Emergency Medicine Author Type: Registered Nurse Type: ED Notes Filed: 02/22/2020 1:06 PM Note Text: RN UNAVAIL FOR REPORT [facility] ED NOTE HNO ID: [id number] Author: Vane Reeder RN Service: Emergency Medicine Author Type: Registered Nurse Type: ED Notes Filed: 02/22/2020 11:49 AM Note Text: Spoke with Sound in regards to BP. Will order IV PRN medication. [facility] ED NOTE HNO ID: [id number] Author: Vane Reeder RN Service: Emergency Medicine Author Type: Registered Nurse Type: ED Notes Filed: 02/22/2020 11:35 AM Note Text: FSBS 79 Normal [facility] ED NOTE HNO ID: [id number] Author: Yaritza Chavez RN Service: Nursing Author Type: Registered Nurse Type: ED Notes Filed: 02/22/2020 6:33 AM Note Text: Nurse called MRI AND told that patient is a candidate for MRI, states that they are unsure of when they will send for patient. [facility] ED NOTE HNO ID: [id number] Author: Yaritza Chavez, RN Service: Nursing Author Type: Registered Nurse Type: ED Notes Filed: 02/22/2020 5:58 AM Note Text: Natasha Gimenez called to obtain MRI screening form. Dr. Eagle giving pt's update over the phone at this time. MRI screening form faxed over. [facility] ED NOTE HNO ID: [id number] Author: Tawana (Rn) OCTAVIO Guzman Service: Emergency Medicine Author Type: Registered Nurse Type: ED Notes Filed: 02/22/2020 3:51 AM Note Text: Pt COVID-19 swab obtained from pt's R nare. Swab specimen labeled @ BS and sent to lab. [facility] ED NOTE HNO ID: [id number] Author: Tawana HolmanRn) OCTAVIO Guzman Service: Emergency Medicine Author Type: Registered Nurse Type: ED Notes Filed: 02/22/2020 3:03 AM Note Text: This RN to assume temporary care of pt @ this time to cover lunch of primary RN. Report received from OCTAVIO Vigil [facility] ED NOTE HNO ID: [id number] Author: Tawana (Rn) OCTAVIO Guzman Service: Emergency Medicine Author Type: Registered Nurse Type: ED Notes Filed: 02/22/2020 1:36 AM Note Text: Yellow trauma II sheet signed by this RN and Dr. Blas and placed in pt's chart [facility] ED NOTE HNO ID: [id number] Author: Twaana HolmanRn) OCTAVIO Guzman Service: Emergency Medicine Author Type: Registered Nurse Type: ED Notes Filed: 02/22/2020 1:35 AM Note Text: Pt moved to room 9 - Pt remains on cardiac/SpO2 monitoring. [facility] ED NOTE HNO ID: [id number] Author: Tawana HolmanRn) OCTAVIO Guzman Service: Emergency Medicine Author Type: Registered Nurse Type: ED Notes Filed: 02/22/2020 1:19 AM Note Text: Pt began answering question and responding verbally to Dr. Shaikh [facility] ED NOTE HNO ID: [id number] Author: Rajan Cruz Service: ? Author Type: ? Type: ED Notes Filed: 02/22/2020 1:07 AM Note Text: [facility] Expected date: 02/22/20 Expected time: 1:00 AM Means of arrival: [facility] Comments: [place] trauma consult [facility] ED NOTE HNO ID: [id number] Author: Tawana Ortega) OCTAVIO Guzman Service: Emergency Medicine Author Type: Registered Nurse Type: ED Notes Filed: 02/22/2020 1:19 AM Note Text: Pt arrives tremoring and unresponsive, tremoring with his shoulders and arm while his tongue was sticking out Normal [facility] ED PROV NOTEon 02-22-2020 ED PROV NOTE HNO ID: [id number] Author: Jacque Eagle MD Service: Emergency Medicine Author Type: Physician Type: ED Provider Notes Filed: 02/22/2020 4:50 AM Note Text: ED Provider Note Patient Name: Megan Gimenez SERVICE DATE: 02/22/20 History No chief complaint on file. Megan Gimenez is a 74 y/o male with known past medical history of mild dementia who is presenting as a transfer from [facility] where he initially presented after a fall with head injury. Per report patient tripped over his dog causing him to fall backwards hitting his head. Unclear loss of consciousness. During his stay [facility] he did receive a CT brain and cervical spine both which were unremarkable. He is currently on Eliquis however no bleeds were seen. His mental status does appear to be slightly depressed however he is having what appears to be focal seizures in his upper extremities. He was transferred to [facility] for a trauma consultation. In route to [...] / Clinical Impression ED Course as of Feb 21 406 Others' Documentation Mon February 22, 2020 0213 [...] is a 74-year-old male patient transferred from [facility] after a fall. Patient reportedly tripped [...] emergency department as a trauma transfer from [facility] where he initially presented after a [...] I did speak with Dr. Loredo, neuro restaurant operations manager, who feels that this is appropriate. Patient was in stable condition upon his admission. The patient was ADMITTED TO: Regular nursing floor. Condition at time of disposition: stable SIGNATURE: DO Suzie Varner (Res) DO [place] Resident 02/22/20 0406 Critical Care I spent a total of 40 minutes of critical care time in the evaluation and management of this patient. 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 The patient received ativan, imaging, IV Fluids and Consultation by trauma during the time that critical care was provided.I discussed the plan of care with the Resident and agree with the findings documented. Critical care time excludes separately billed procedures. MD Jacque Quiñonez MD 02/22/20 0450 Normal [facility] HISTORY PHYSICALon 0 HISTORY PHYSICAL HNO ID: [id number] Author: Melina Hallman Service: Hospital Medicine Author Type: Nurse Practitioner Type: HANDP Filed: 02/22/2020 8:48 AM Note Text: -- Attestation signed by Laureano Linton at 02/22/2020 10:41 AM Attending Note I have personally performed a face to face assessment of the patient and have reviewed the PA/ASSISTANT OFFSET PRESS OPERATOR note. My mahmood findings include: History is as noted on nurse practitioner history. Patient had been doing well until yesterday when he tripped over his dog and hit his head. He said generalized tremors affecting his upper body primarily his upper extremities. He was sent to [facility] as a trauma and a CT of the brain and cervical spine showed a small left frontal contusion. X-rays of the pelvis were negative. He was transferred to [facility] for more comprehensive evaluation. Exam is BP [...] Date: 02/22/2020 Time: 10:35 AM -- DEPARTMENT OF HOSPITAL MEDICINE HISTORY AND PHYSICAL EXAM SERVICE DATE: 02/22/2020 SERVICE TIME: 8:32 AM Primary Care Physician: Jayme Yang MD NIGHT AND WEEKEND COVERAGE: After 7pm call #[phone] Chief complaint: tremor HPI: This is a 74 y/o male with prior history of atrial fibrillation on eliquis, HTN, diabetes, HLD, rheumatoid arthritis and colitis. Patient lives at home with and is AANDOX3 and independent at baseline. 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 Reportedly after this fall the patient started exhibiting generalized tremors in both extremities and he was taken to the emergency department in [place]. There is concern that he was having a seizure and he was given a milligram of Ativan at [facility] ED. He continued to exhibit this tremulous activity in bilateral upper extremities and altered mental status so he was given additional Versed in route to our facility [facility] at [facility]. On arrival he was exhibiting these [...] diabetes, rheumatoid arthritis colitis, hyperlipidemia , per [facility] medical records. GCS on arrival 13. HPI/CHIEF [...] Result IMPRESSION: No acute fracture or dislocation. Registration Coordinator: PSCB Transcribe Date/Time: Feb 22 2020 1:43A [...] 1. CT H and XR P at [facility] (02/21) 2. CT H/N, CXR and CTA head neck at [facility] 1. CT cervical spine with no evidence [...] Trauma Service Pager: For questions or concerns Mon-Sat 6a-5p please page [phone]. After 5pm and on Weekends and Holidays, please page [phone] if in ICU or [phone] if on RNF. Attending Note I personally saw and examined the patient. I reviewed the resident's note. I agree with the resident's assessment and plan unless otherwise noted. As above Possible seizures No traumatic injuries OK to admit to medicine Signature: Raphael Lima MD Date: 02/22/2020 Time: 10:11 AM Normal [facility] Hemogram/Diffon 02-22-2020 Abs Immature Grans 0.03 thou/cmm Normal 0.00-0.05 [facility] Comment on above: Performed By: #### G LMET #### [place] [address] Abs Neut (ANC) 4.09 thou/cmm Normal 1.78-5.38 [facility] Comment on above: Performed By: #### G LMET #### [place] [address] Abs. Baso 0.02 thou/cmm Normal 0.01-0.08 [facility] Comment on above: Performed By: #### G LMET #### [place] [address] Abs. Chaves 0.66 thou/cmm Normal 0.30-0.82 [facility] Comment on above: Performed By: #### G LMET #### [place] [address] Basophils/100 WBC (Bld) 0.3 % Normal [facility] Comment on above: Performed By: #### G LMET #### [facility] [address] [place], [place] [address] Eosinophils (Bld) [#/Vol] 0.20 thou/cmm Normal 0.04-0.54 [facility] Comment on above: Performed By: #### G LMET #### [facility] [address] [place], [place] [address] Eosinophils/100 WBC (Bld) 3.1 % Normal [facility] Comment on above: Performed By: #### G LMET #### [address] [address] Erythrocyte distribution width (RBC) [Ratio] 16.5 % High 11.6-14.4 [facility] Comment on above: Performed By: #### G LMET #### [place] [address] Hematocrit (Bld) [Volume fraction] 33.0 % Low 40.1-51.0 [facility] Comment on above: Performed By: #### G LMET #### [address] [address] Hemoglobin (Bld) [Mass/Vol] 10.6 g/dL Low 13.7-17.5 [facility] Comment on above: Performed By: #### G LMET #### [place] [address] Immature Grans 0.50 % Normal [facility] Comment on above: Performed By: #### G LMET #### [facility] [address] [place], [place] [address] Lymphocytes (Bld) [#/Vol] 1.53 thou/cmm Normal 0.84-2.85 [facility] Comment on above: Performed By: #### G LMET #### [address] [address] Lymphocytes/100 WBC (Bld) 23.4 % Normal [facility] Comment on above: Performed By: #### G LMET #### [facility] [address] [place] [address] MCH (RBC) [Entitic mass] 28.7 pg Normal 25.7-32.2 [facility] Comment on above: Performed By: #### G LMET #### [facility] [address] [place] [address] MCHC (RBC) [Mass/Vol] 32.1 % Low 32.3-36.5 [facility] Comment on above: Performed By: #### G LMET #### [facility] [address] [place] [address] MCV (RBC) [Entitic vol] 89.4 fL Normal 83.2-95.6 [facility] Comment on above: Performed By: #### G LMET #### [facility] [address] [place] [address] Monocytes/100 WBC (Bld) 10.1 % Normal [facility] Comment on above: Performed By: #### G LMET #### [facility] [address] [place] [address] Platelet mean volume (Bld) [Entitic vol] 10.8 fL Normal 8.7-12.0 [facility] Comment on above: Performed By: #### G LMET #### [facility] [address] [place] [address] Platelets (Bld) [#/Vol] 212 thou/cmm Normal 141-365 [facility] Comment on above: Performed By: #### G LMET #### [facility] [address] [place] [address] RBC (Bld) [#/Vol] 3.69 mil/cmm Low 4.63-6.08 [facility] Comment on above: Performed By: #### G LMET #### [facility] [address] [place] [address] RDW SD 54.3 fl High 36.1-45.8 [facility] Comment on above: Performed By: #### G LMET #### [place] [address] Seg Neutrophil 62.6 % Normal [facility] Comment on above: Performed By: #### G LMET #### [facility] [address] [place] [address] WBC (Bld) [#/Vol] 6.54 thou/cmm Normal 4.23-9.07 [facility] Comment on above: Performed By: #### G LMET #### [facility] [address] [place] [address] Hgb A1con 02-22-2020 HbA1c (Bld) [Mass fraction] 128 mg/dL Normal [facility] Comment on above: Performed By: #### H A1C ####[facility] [place] [address] HbA1c (Bld) [Mass fraction] 6.1 % High 4.0-5.6 [facility] Comment on above: Result Comment: [facility] Diabetes [facility] guidelines indicate that the patients with HgA1c in the range 5.7 ? 6.4% are at increased risk for development of diabetes, and intervention by lifestyle modification may be beneficial. HgA1c greater or equal to 6.5% is considered diagnostic of diabetes. Performed By: #### H A1C ####[facility] [place] [address] Lactic Acidon 02-22-2020 Lactate [Moles/Vol] 1.1 mmol/L Normal 0.5-2.2 [facility] Comment on above: Performed By: #### E DLAG #### [place] [address] Lipase Bloodon 02-22-2020 Lipase Blood 22 U/L Normal 16-61 [facility] Comment on above: Performed By: #### L IP #### [facility] [address] [place] [address] MRI BRAIN WO IVCONon 020 MRI BRAIN WO IVCON * * *Final Report* * * DATE OF EXAM: Feb 22 2020 3:13PM [facility] 0294 - MRI BRAIN WO IVCON [...] or extraconal mass. Correlate with clinical symptoms Registration Coordinator: HARDIK Transcribe Date/Time: Feb 22 2020 3:41P Dictated by : FELICITAS MAY MD This examination was interpreted and the report reviewed and electronically signed by: FELICITAS MAY MD on Feb 22 2020 3:58PM EST Normal [facility] Magnesium Bloodon 02-22-2020 Magnesium [Mass/Vol] 1.7 mg/dL Normal 1.7-2.3 [facility] Comment on above: Performed By: #### G LMET #### [place] [address] NURSING PROGon 02-22-2020 NURSING PROG HNO ID: [id number] Author: Avani (Rn) OCTAVIO Xie Service: ? Author Type: Registered Nurse Type: Nursing Progress Note Filed: 02/22/2020 5:10 PM Note Text: Nursing Progress Note Vital Associate Professor Physician Assessment Note Patient Name: Megan Gimenez Patient Location: [place] [address] [address]* Patient Vitals for the past 4 hrs: [...] the floor, MD was n floor and awareMD stated to monitor at this time This note was completed by: Avani Xie RN [facility] PLAN OF CAREon 02-22-2020 PLAN OF CARE HNO ID: [id number] Author: Morena Szymanski (Pharmacist) Service: Pharmacy Author Type: Pharmacist Type: Plan of Care Filed: 02/23/2020 4:55 PM Note Text: MEDICATION RECONCILIATION Patient Name:Minerva Gimenez : 1945 Reconciliation: Yes All RODENT EXTERMINATOR medications addressed by LIP - lisinopril/HCTZ held [...] and pharmacy: Medication name and Pharmacy records: [facility] [phone] (primary) Medication Nonadherence Identified: No barriers noted The above information represents the best possible medication history: Yes [id number] Medication List Adjustments: Medication Regimen Changes: ISOSORBIDE ORAL Take 60 mg by mouth once daily. Pt. states dose has increased. Last RX on 02/11/20 is 60 mg daily. Medications Added: Ipratropium Barnwell (ATROVENT) 0.03 % nasal spray Use 1 Buckeye in the nose as directed. Pt. states [...] Allergies: ALLERGIES No Known Allergies Preferred Pharmacy: [facility] [phone] (primary) Current RODENT EXTERMINATOR Medications: Prior to Admission medications as of [...] by mouth DAILY (6 AM). Yes Ipratropium Barnwell (ATROVENT) 0.03 % nasal spray Use 1 Buckeye in the nose as directed. Yes glimepiride (AMARYL) 2 mg tablet Take 2 mg by mouth once daily. Yes Sam Rankin (High School Home Economics Teacher) pager [phone] phone [phone] February 22, 2020 10:01 AM Normal [facility] PROGRESSon 02-22-2020 PROGRESS HNO ID: [id number] Author: Avani (Rn) OCTAVIO Xie Service: ? Author Type: Registered Nurse Type: Progress Notes Filed: 02/22/2020 4:28 PM Note Text: 1530: pt arrived to floor seizing, pts designated room not clean, sent to empty clean private room, paged sound yellow and supervisor electronic coils, notified Dr. Linton [facility] PROGRESS HNO ID: [id number] Author: Avani (Rn) OCTAVIO Xie Service: ? Author Type: Registered Nurse Type: Progress Notes Filed: 02/22/2020 6:14 PM Note Text: 1547: ok to d/c gabapentin at this time per dr linton on floor, Dr. Linton notified of pts blood pressure ok to monitor for now 1644: confirmed admission assment with natasha 1814: notified Dr. Linton of aspirin allergy, ok to still give UC meds Normal [facility] Protimeon 02-22-2020 INR Coag (PPP) [Relative time] 0.99 {INR} Normal 0.90-1.30 [facility] Comment on above: Result Comment: Marly min K Antagonist (VKA) Therapeutic Range: INR 2 to 3 (Target INR of 2.5) Note: For patients treated with VKA drugs, such as warfarin, the [place] [employer] 2012 Guideline recommends [...] Chest 2012; 141:7S-47S Deshawn MELCHOR et al. JAC 2017; 70: 252-289 Performed By: #### G LMET #### [place] [address] PT Coag (PPP) [Time] 10.7 s Normal 9.7-13.0 [facility] Comment on above: Performed By: #### G LMET #### [facility] [address] [place], [place] [address] INR Coag (PPP) [Relative time] 0.98 {INR} Normal 0.90-1.30 [facility] Comment on above: Result Comment: Marly min K Antagonist (VKA) Therapeutic Range: INR 2 to 3 (Target INR of 2.5) Note: For patients treated with VKA drugs, such as warfarin, the [place] [employer] 2012 Guideline recommends [...] 2.5 to 3.5 target INR of 3). Guyatt GH, et al. Chest 2012; 141:7S-47S Deshawn RA, et al. JAC 2017; 70: 252-289 Performed By: #### P T #### [facility] [address] [place], [place] [address] PT Coag (PPP) [Time] 10.6 s Normal 9.7-13.0 [facility] Comment on above: Performed By: #### P T #### [facility] [address] [place], [place] [address] Rapid, COVID 19on 02-22-2020 Rapid, COVID 19 Negative Normal Negative [facility] Comment on above: Result Comment: This test has been authorized by the FDA under an Emergency Use Authorization (EUA). Performed By: #### G LMET #### [facility] [address] [place], [place] [address] TSHon 02-22-2020 TSH Qn 1.560 uIU/mL Normal 0.270-4.20 0 [facility] Comment on above: Result Comment: Preg steffen: [...] result. Performed By: #### G LMET #### [place] [address] Troponin T, High Sens.on Troponin T, High Sens. 36 ng/L High 0-11 [facility] Comment on above: Result Comment: Yovana ents [...] result. Performed By: #### G LMET #### [address] [address] Troponin T, High Sens. 41 ng/L High 0-11 [facility] Comment on above: Result Comment: Yovana ents [...] result. Performed By: #### G LMET #### [address] [address] Troponin T, High Sens. 43 ng/L High 0-11 [facility] Comment on above: Result Comment: Yovana ents [...] result. Performed By: #### T ROPT #### [place] [address] Type and Screenon 02-22-2020 ABO group Nom (Bld) AB Normal [facility] Comment on above: Performed By: #### T &S #### [place] [address] Comment Emergency Room Normal [facility] Comment on above: Performed By: #### T &S #### [place] [address] RH Type Positive Normal [facility] Comment on above: Performed By: #### T &S #### [place] [address] Urine Drug Screenon 02-22-20 20 Urine Alcohol <11 Normal 0-11 [facility] Comment on above: Performed By: #### U DRG3 #### [place] [address] Urine Amphetamine Negative Normal NEGATIVE [facility] Comment on above: Performed By: #### U DRG3 #### [place] [address] Urine Barbiturates Negative Normal NEGATIVE [facility] Comment on above: Performed By: #### U DRG3 #### [place] [address] Urine Benzodiazepine Negative Normal NEGATIVE [facility] Comment on above: Performed By: #### U DRG3 #### [place] [address] Urine Cocaine Metab Negative Normal NEGATIVE [facility] Comment on above: Performed By: #### U DRG3 #### [facility] [address] [place], [place] [address] Urine Opiates Negative Normal NEGATIVE [facility] Comment on above: Performed By: #### U DRG3 #### [facility] [address] [place], [place] [address] Urine Oxycodone Negative Normal NEGATIVE [facility] Comment on above: Performed By: #### U DRG3 #### [facility] [address] [place], [place] [address] Urine PCP Negative Normal NEGATIVE [facility] Comment on above: Result Comment: Test Cutoff [...] the same specimen through the laboratory at ([phone]) if contacted within 48 hours of initial 1. Substance Abuse and Mental Health Services Administration (2012). Clinical Drug Testing in Primary Care Technical Assistance Publication Series 32. Department of Health and Human Services, [place], p.10. Performed By: #### U DRG3 #### [facility] [address] [place], [place] [address] Urine THC Negative Normal NEGATIVE [facility] Comment on above: Performed By: #### U DRG3 #### [facility] [address] [place], [place] [address] XR PELVIS 1V APon 02-22-2020 XR PELVIS [...] hardware. IMPRESSION: No acute fracture or dislocation. Registration Coordinator: HARDIK Transcribe Date/Time: Feb 22 2020 1:43A Dictated by : SUZIE MARTINEZ MD This examination was interpreted and the report reviewed and electronically signed by: SUZIE MARTINEZ MD on Feb 22 2020 1:51AM EST Normal [facility] Chart Maintenanceon 04-12-20 17 HbA1c 6.4 % Invalid Interpretation Code [employer] Work Phone: Office Visit: [facility] 03-22-20 17 Dietary management education, guidance, and counseling (procedure) yes Invalid Interpretation Code [employer] Work Phone: Documentation of current medications (procedure) Done Invalid Interpretation Code [employer] Work Phone: Fall risk assessment No Invalid Interpretation Code [facility] Work Phone: [phone] Protein mass conc Done [facility] Work Phone: [phone] Lab Report: Basic Metabolic Profile (BMP)on 02-07-2017 Anion gap 9 mmol/L Invalid Interpretation Code 5-15 [facility] Work Phone: [phone] Anion gap molar conc 9 mmol/L 5-[address] [facility] Work Phone: [phone] BUN/Creatinine Ratio 19.4 RATIO Invalid Interpretation Code 10-20 [facility] Work Phone: [phone] Calcium 8.8 mg/dL Invalid Interpretation Code 8.5-10.1 [facility] Work Phone: [phone] Chloride 104 mmol/L Invalid Interpretation Code 98-107 [facility] Work Phone: [phone] CO2 30.0 mmol/L Invalid Interpretation Code 21.0-32.0 [facility] Work Phone: [phone] CO2 ppres (BldV) 30.0 mmol/L 21.0-32.0 [facility] Work Phone: Creatinine 1.44 mg/dL High 0.70-1.30 [facility] Work Phone: [phone] eGFR (non-black) 51 mL/min/{1.73_m2} Low >60 [facility] Work Phone: [phone] eGFR (non-black) 62 mL/min/{1.73_m2} Invalid Interpretation Code >60 [facility] Work Phone: [phone] EST GFR - AA 62 mL/min >60 [facility] Work Phone: [phone] Glucose 130 mg/dL High 70-110 [facility] Work Phone: [phone] Glucose mass conc 130 mg/dL High 70-110 [facility] Work Phone: [phone] Potassium 3.6 mmol/L Invalid Interpretation Code 3.5-5.1 [facility] Work Phone: [phone] Sodium 143 mmol/L Invalid Interpretation Code 136-145 [facility] Work Phone: [phone] Urea nitrogen 28 mg/dL High 7-18 [facility] Work Phone: [phone] Lab Report: CBC-Complete Blo od Cnt No Diffon 02-07-2017 Erythrocyte distribution width Ratio (RBC) 50.1 fL High 35.1-43.9 [facility] Work Phone: [phone] Erythrocyte distribution width Ratio (RBC) 14.8 % High 11.6-14.6 [facility] Work Phone: [phone] Erythrocytes (RBC) 4.61 10*6/uL Invalid Interpretation Code 4.6-6.2 [facility] Work Phone: [phone] Hematocrit (HCT) 42.7 % Invalid Interpretation Code 40-54 [facility] Work Phone: [phone] Hematocrit Volume Fraction (Bld) 42.7 % 40-54 [facility] Work Phone: [phone] Hemoglobin (HGB) 14.1 g/dL Invalid Interpretation Code 13.0-16.5 [facility] Work Phone: [phone] MCH 30.6 pg Invalid Interpretation Code 27.0-32.0 [facility] Work Phone: [phone] MCH Entitic mass (RBC) 30.6 pg 27.0-32.0 [facility] Work Phone: [phone] MCHC 33.0 G/GL Invalid Interpretation Code 32-36 [facility] Work Phone: [phone] MCHC mass conc (RBC) 33.0 G/GL 32-[address] [facility] Work Phone: [phone] MCV 92.6 fL Invalid Interpretation Code 80-94 [facility] Work Phone: [phone] MCV Entitic volume (RBC) 92.6 fL 80-94 [facility] Work Phone: [phone] Platelet mean volume Entitic volume (Bld) 10.9 fL 6.2-12.0 [facility] Work Phone: [phone] Platelets 204 10*3/mm3 Invalid Interpretation Code 150-450 [facility] Work Phone: [phone] Platelets #/vol (Bld) 204 10*3/mm3 150-450 [facility] Work Phone: [phone] PMV by Rosy 10.9 fL Invalid Interpretation Code 6.2-12.0 [facility] Work Phone: [phone] RBC #/vol (Bld) 4.61 10*6/uL 4.6-6.2 [facility] Work Phone: [phone] RDW-CA 14.8 % High 11.6-14.6 [facility] Work Phone: [phone] red blood cell distribution width, size density 50.1 fL High 35.1-43.9 [facility] Work Phone: [phone] WBC #/vol (Bld) 6.4 10*3/uL 4.4-11.0 [facility] Work Phone: [phone] WBC (Leukocytes) 6.4 10*3/uL Invalid Interpretation Code 4.4-11.0 [facility] Work Phone: [phone] Office Visiton 12-13-2016 Dietary management education, guidance, and counseling (procedure) yes Invalid Interpretation Code [facility] Work Phone: Documentation of current medications (procedure) Done Invalid Interpretation Code [employer] Phone: [phone] Protein mass conc Done [facility] Work Phone: [phone] Replaced Document: Oscar Ly 12-13-2016 EKG QRS axis -27 deg [facility] Work Phone: [phone] electrocardiogram interpretation Sinus Rhythm -Inferior infarct -probably not recent -Poor R-wave progression -nonspecific -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 ABNORMAL [facility] Work Phone: [phone] P [place] -1 deg [facility] Work Phone: [phone] P wave axis, electrocardiogram -1 deg Invalid Interpretation Code [employer] Phone: TX Interval 166 ms [facility] Work Phone: [phone] TX interval, electrocardiogram 166 ms Invalid Interpretation Code [facility] Work Phone: Pulse (Heart Rate) 71 /min Invalid Interpretation Code [facility] Work Phone: QRS axis, electrocardiogram -27 deg Invalid Interpretation Code [facility] Work Phone: QRS Duration 92 ms [facility] Work Phone: QRS duration, electrocardiogram 92 ms Invalid Interpretation Code [employer] Phone: QT Interval new path ms [facility] Work Phone: QT interval, electrocardiogram new path ms Invalid Interpretation Code [facility] Work Phone: QTc Lino 411 ms [facility] Work Phone: T [place] -1 deg [facility] Work Phone: T wave axis, electrocardiogram -1 deg Invalid Interpretation Code [facility] Work Phone: [phone] Clinical Lists Update: 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 Jayme Yang MD Work Phone: [facility] 02-15-2025 18:52-0400 Diastolic blood pressure 74 mm[Hg] Dr. Jayme Yang MD Work Phone: [facility] 02-15-2025 18:52-0400 Heart rate 86 /min Dr. Jayme Yang MD Work Phone: [facility] 02-15-2025 18:52-0400 Respiratory rate 20 /min Dr. Jayme Yang MD Work Phone: [facility] 02-15-2025 18:52-0400 SaO2% (BldA) [Mass fraction] 93 % Dr. Jayme Yang MD Work Phone: [facility] 02-15-2025 18:52-0400 Systolic blood pressure 138 mm[Hg] Dr. Jayme Yang MD Work Phone: [facility] 02-15-2025 16:31-0400 Body height 165.[address] Jayme Yang MD Work Phone: [facility] 02-15-2025 16:31-0400 Body mass index (BMI) [Ratio] 29.3 kg/m2 Dr. Jayme Yang MD Work Phone: [facility] 02-15-2025 16:31-0400 Body weight 80.[address] Jayme Yang MD Work Phone: [facility] 11-27-2024 08:24-0500 Body height 170.[address] Jayme Yang MD Work Phone: 1(642)264-816817 [address] 11-27-2024 08:24-0500 Body mass index (BMI) [Ratio] 28.5 kg/m2 Dr. Jayme Yang MD Work Phone: 5(653)432-093417 [address] 11-27-2024 08:24-0500 Body weight 82.[address] Jayme Yang MD Work Phone: 4(153)083-144217 [address] 11-27-2024 08:24-0500 Diastolic blood pressure 78 mm[Hg] Dr. Jayme Yang MD Work Phone: 9(474)388-340857 [place] [address] 11-27-2024 08:24-0500 Heart rate 75 /min Dr. Jayme Yang MD Work Phone: 6(803)786-980257 [place] [address] 11-27-2024 08:24-0500 Respiratory rate 16 /min Dr. Jayme Yang MD Work Phone: 2(395)487-362817 [address] 11-27-2024 08:24-0500 Systolic blood pressure 144 mm[Hg] Dr. Jayme Yang MD Work Phone: 1(460)710-427757 [place] [address] 11-17-2024 09:00-0500 Body mass index (BMI) [Ratio] 27.7 kg/m2 Dr. Jayme Yang MD Work Phone: 3(546)622-244557 [place] [address] 11-17-2024 09:00-0500 Body temperature 96.9 [degF] Dr. Jayme Yang MD Work Phone: 5(364)244-643063 [place] [address] 11-17-2024 09:00-0500 Body weight 80.[address] Jayme Yang MD Work Phone: 7(645)049-722817 [address] 11-17-2024 09:00-0500 Diastolic blood pressure 78 mm[Hg] Dr. Jayme Yang MD Work Phone: 7(911)474-866817 [address] 11-17-2024 09:00-0500 Heart rate 64 /min Dr. Jayme Yang MD Work Phone: 0(791)152-795717 [address] 11-17-2024 09:00-0500 Respiratory rate 20 /min Dr. Jayme Ynag MD Work Phone: 9(727)445-571057 [place] [address] 11-17-2024 09:00-0500 SaO2% (BldA) [Mass fraction] 94 % Dr. Jayme Yang MD Work Phone: 1(237)919-720057 [place] [address] 11-17-2024 09:00-0500 Systolic blood pressure 178 mm[Hg] Dr. Jayme Yang MD Work Phone: 4(623)031-145157 [place] [address] 10-06-2024 09:32-0500 Body mass index (BMI) [Ratio] 28.5 kg/m2 Dr. Jayme Yang MD Work Phone: 8(395)567-441857 [place] [address] 10-06-2024 09:32-0500 Body temperature 97.7 [degF] Dr. Jayme Yang MD Work Phone: 5(715)642-540057 [place] [address] 10-06-2024 09:32-0500 Body weight 82.[address] Jayme Yang MD Work Phone: 2(698)439-282957 [place] [address] 10-06-2024 09:32-0500 Diastolic blood pressure 78 mm[Hg] Dr. Jayme Yang MD Work Phone: 2(004)074-243857 [place] [address] 10-06-2024 09:32-0500 Heart rate 68 /min Dr. Jayme Yang MD Work Phone: 8(797)406-896057 [place] [address] 10-06-2024 09:32-0500 Respiratory rate 16 /min Dr. Jayme Yang MD Work Phone: 7(191)465-969857 [place] [address] 10-06-2024 09:32-0500 SaO2% (BldA) [Mass fraction] 95 % Dr. Jayme Yang MD Work Phone: 6(001)863-397057 [place] [address] 10-06-2024 09:32-0500 Systolic blood pressure 168 mm[Hg] Dr. Jayme Yang MD Work Phone: 2(624)840-743357 [place] [address] 12-11-2023 09:24-0400 Body height 170.[address] Jayme Yang Work Phone: 2(529)428-430457 [place] [address] 12-11-2023 09:24-0400 Body mass index (BMI) [Ratio] 34 kg/m2 Dr. Jayme Yang Work Phone: [facility] 12-11-2023 09:24-0400 Body weight 98.[address] Jayme Yang Work Phone: [facility] 12-11-2023 09:24-0400 Diastolic blood pressure 79 mm[Hg] Dr. Jayme Yang Work Phone: [facility] 12-11-2023 09:24-0400 Heart rate 80 /min Dr. Jayme Yang Work Phone: [facility] 12-11-2023 09:24-0400 Respiratory rate 18 /min Dr. Jayme Yang Work Phone: [facility] 12-11-2023 09:24-0400 Systolic blood pressure 146 mm[Hg] Dr. Jayme Yang Work Phone: [facility] 11-21-2023 07:44-0500 Body mass index (BMI) [Ratio] 34.2 kg/m2 Dr. Jayme Yang Work Phone: [facility] 11-21-2023 07:44-0500 Body temperature 97.1 [degF] Dr. Jayme Yang Work Phone: [facility] 11-21-2023 07:44-0500 Body weight 99.[address] Jayme Yang Work Phone: [facility] 11-21-2023 07:44-0500 Diastolic blood pressure 89 mm[Hg] Dr. Jayme Yang Work Phone: [facility] 11-21-2023 07:44-0500 Heart rate 80 /min Dr. Jayme Yang Work Phone: [facility] 11-21-2023 07:44-0500 Respiratory rate 20 /min Dr. Jayme Yang Work Phone: [facility] 11-21-2023 07:44-0500 SaO2% (BldA) [Mass fraction] 95 % Dr. Jayme Yang Work Phone: [facility] 11-21-2023 07:44-0500 Systolic blood pressure 172 mm[Hg] Dr. Jayme Yang Work Phone: [facility] 11-19-2023 08:58-0500 Body mass index (BMI) [Ratio] 34.7 kg/m2 Dr. Jayme Yang Work Phone: [facility] 11-19-2023 08:58-0500 Body temperature 98.7 [degF] Dr. Jayme Yang Work Phone: [facility] 11-19-2023 08:58-0500 Body weight 100.[address] Jayme Yang Work Phone: [facility] 11-19-2023 08:58-0500 Diastolic blood pressure 74 mm[Hg] Dr. Jayme Yang Work Phone: [facility] 11-19-2023 08:58-0500 Heart rate 81 /min Dr. Jayme Yang Work Phone: [facility] 11-19-2023 08:58-0500 Respiratory rate 18 /min Dr. Jayme Yang Work Phone: [facility] 11-19-2023 08:58-0500 SaO2% (BldA) [Mass fraction] 92 % Dr. Jayme Yang Work Phone: [facility] 11-19-2023 08:58-0500 Systolic blood pressure 149 mm[Hg] Dr. Jayme Yang Work Phone: [facility] 11-13-2023 13:18-0500 Heart rate 91 /min Dr. Jayme Yang Work Phone: [facility] 11-13-2023 12:58-0500 Body temperature 98 [degF] Dr. Jayme Yang Work Phone: [facility] 11-13-2023 12:58-0500 Diastolic blood pressure 94 mm[Hg] Dr. Jayme Yang Work Phone: [facility] 11-13-2023 12:58-0500 Respiratory rate 18 /min Dr. Jayme Yang Work Phone: [facility] 11-13-2023 12:58-0500 SaO2% (BldA) [Mass fraction] 93 % Dr. Jayme Yang Work Phone: [facility] 11-13-2023 12:58-0500 Systolic blood pressure 176 mm[Hg] Dr. Jayme Yang Work Phone: 0(218)362-880817 [address] 11-13-2023 08:11-0500 Inhaled oxygen flow rate 2 L/min Dr. Jayme Yang Work Phone: 0(336)405-043617 [address] 11-11-2023 22:52-0500 Body height 170.[address] Jayme Yang Work Phone: 1(710)905-094457 [place] [address] 11-11-2023 22:52-0500 Body mass index (BMI) [Ratio] 34.3 kg/m2 Dr. Jayme Yang Work Phone: 8(001)166-808863 [place] [address] 11-11-2023 22:52-0500 Body weight 99.[address] Jayme Yang Work Phone: 1(993)676-647417 [address] 11-11-2023 22:37-0500 Body temperature 98 [degF] Dr. Jayme Yang Work Phone: 8(681)797-544063 [place] [address] 11-11-2023 22:37-0500 Diastolic blood pressure 84 mm[Hg] Dr. Jayme Yang Work Phone: [facility] 11-11-2023 22:37-0500 Heart rate 89 /min Dr. Jayme Yang Work Phone: [facility] 11-11-2023 22:37-0500 Respiratory rate 24 /min Dr. Jayme Yang Work Phone: [facility] 11-11-2023 22:37-0500 SaO2% (BldA) [Mass fraction] 95 % Dr. Jayme Yang Work Phone: [facility] 11-11-2023 22:37-0500 Systolic blood pressure 163 mm[Hg] Dr. Jayme Yang Work Phone: [facility] 11-11-2023 19:48-0500 Inhaled oxygen flow rate 2 L/min Dr. Jayme Yang Work Phone: 8(472)778-197157 [place] [address] 11-11-2023 19:45-0500 Body height 170.[address] Jayme Yang Work Phone: 8(471)113-480557 [place] [address] 11-11-2023 19:45-0500 Body mass index (BMI) [Ratio] 35.4 kg/m2 Dr. Jayme Yang Work Phone: 7(253)576-797357 [place] [address] 11-11-2023 19:45-0500 Body weight 102.[address] Jayme Yang Work Phone: 1(933)714-103157 [place] [address] 10-16-2023 08:07-0500 Body height 170.[address] Jayme Yang Work Phone: 6(748)223-570457 [place] [address] 10-16-2023 08:07-0500 Body mass index (BMI) [Ratio] 33.2 kg/m2 Dr. Jayme Yang Work Phone: 2(976)255-495957 [place] [address] 10-16-2023 08:07-0500 Body temperature 98.2 [degF] Dr. Jayme Yang Work Phone: 5(292)571-927157 [place] [address] 10-16-2023 08:07-0500 Body weight 96.[address] Jayme Yang Work Phone: 1(616)030-231157 [place] [address] 10-16-2023 08:07-0500 Diastolic blood pressure 90 mm[Hg] Dr. Jayme Yang Work Phone: 0(173)616-724257 [place] [address] 10-16-2023 08:07-0500 Heart rate 83 /min Dr. Jayme Yang Work Phone: 9(204)909-123957 [place] [address] 10-16-2023 08:07-0500 Respiratory rate 18 /min Dr. Jayme Yang Work Phone: 5(103)174-341057 [place] [address] 10-16-2023 08:07-0500 SaO2% (BldA) [Mass fraction] 91 % Dr. Jayme Yang Work Phone: [facility] 10-16-2023 08:07-0500 Systolic blood pressure 166 mm[Hg] Dr. Jayme Yang Work Phone: [facility] 10-09-2023 08:15-0500 Body mass index (BMI) [Ratio] 34.7 kg/m2 Dr. Jayme Yang Work Phone: [facility] 10-09-2023 08:15-0500 Body temperature 97.9 [degF] Dr. Jayme Yang Work Phone: [facility] 10-09-2023 08:15-0500 Body weight 100.[address] Jayme Yang Work Phone: 0(034)333-397317 [address] 10-09-2023 08:15-0500 Diastolic blood pressure 76 mm[Hg] Dr. Jayme Yang Work Phone: 8(421)446-297263 [place] [address] 10-09-2023 08:15-0500 Heart rate 69 /min Dr. Jayme Yang Work Phone: [facility] 10-09-2023 08:15-0500 Respiratory rate 16 /min Dr. Jayme Yang Work Phone: [facility] 10-09-2023 08:15-0500 SaO2% (BldA) [Mass fraction] 91 % Dr. Jayme Yang Work Phone: 8(825)174-244463 [place] [address] 10-09-2023 08:15-0500 Systolic blood pressure 155 mm[Hg] Dr. Jayme Yang Work Phone: [facility] 10-02-2023 08:15-0500 Body mass index (BMI) [Ratio] 33.5 kg/m2 Dr. Jayme Yang Work Phone: [facility] 10-02-2023 08:15-0500 Body temperature 98.5 [degF] Dr. Jayme Yang Work Phone: [facility] 10-02-2023 08:15-0500 Body weight 97.[address] Jayme Yang Work Phone: 2(110)787-867957 [place] [address] 10-02-2023 08:15-0500 Diastolic blood pressure 86 mm[Hg] Dr. Jayme Yang Work Phone: 1(551)853-045157 [place] [address] 10-02-2023 08:15-0500 Heart rate 86 /min Dr. Jayme Yang Work Phone: 5(521)336-743057 [place] [address] 10-02-2023 08:15-0500 Respiratory rate 18 /min Dr. Jayme Yang Work Phone: 2(554)946-958857 [place] [address] 10-02-2023 08:15-0500 SaO2% (BldA) [Mass fraction] 91 % Dr. Jayme Yang Work Phone: 5(250)035-939357 [place] [address] 10-02-2023 08:15-0500 Systolic blood pressure 173 mm[Hg] Dr. Jayme Yang Work Phone: 8(506)589-304657 [place] [address] 09-25-2023 08:28-0500 Body mass index (BMI) [Ratio] 33.7 kg/m2 Dr. Jayme Yang Work Phone: 5(121)850-505657 [place] [address] 09-25-2023 08:28-0500 Body temperature 98.1 [degF] Dr. Jayme Yang Work Phone: 8(265)951-661857 [place] [address] 09-25-2023 08:28-0500 Body weight 97.[address] Jayme Yang Work Phone: 4(268)344-063757 [place] [address] 09-25-2023 08:28-0500 Diastolic blood pressure 76 mm[Hg] Dr. Jayme Yang Work Phone: 4(412)722-621857 [place] [address] 09-25-2023 08:28-0500 Heart rate 84 /min Dr. Jayme Yang Work Phone: 4(563)239-521057 [place] [address] 09-25-2023 08:28-0500 Respiratory rate 16 /min Dr. Jayme Yang Work Phone: 6(445)416-249057 [place] [address] 09-25-2023 08:28-0500 SaO2% (BldA) [Mass fraction] 92 % Dr. Jayme Yang Work Phone: 5(592)223-641117 [address] 09-25-2023 08:28-0500 Systolic blood pressure 163 mm[Hg] Dr. Jayme Yang Work Phone: [facility] 09-24-2023 07:42-0500 SaO2% (BldA) [Mass fraction] 97 % Dr. Jayme Yang Work Phone: [facility] 09-24-2023 07:35-0500 Body temperature 97.8 [degF] Dr. Jayme Yang Work Phone: [facility] 09-24-2023 07:35-0500 Diastolic blood pressure 91 mm[Hg] Dr. Jayme Yang Work Phone: [facility] 09-24-2023 07:35-0500 Heart rate 87 /min Dr. Jayme Yang Work Phone: [facility] 09-24-2023 07:35-0500 Respiratory rate 18 /min Dr. Jayme Yang Work Phone: [facility] 09-24-2023 07:35-0500 Systolic blood pressure 168 mm[Hg] Dr. Jayme Yang Work Phone: [facility] 09-24-2023 04:53-0500 Inhaled oxygen flow rate 5 L/min Dr. Jayme Yang Work Phone: [facility] 09-20-2023 16:01-0500 Body height 170.[address] Jayme Yang Work Phone: [facility] 09-20-2023 16:01-0500 Body mass index (BMI) [Ratio] 34.2 kg/m2 Dr. Jayme Yang Work Phone: [facility] 09-20-2023 16:01-0500 Body weight 99.[address] Jayme Yang Work Phone: [facility] 09-20-2023 15:45-0500 Body temperature 98.1 [degF] Dr. Jayme Yang Work Phone: [facility] 09-20-2023 15:45-0500 Diastolic blood pressure 89 mm[Hg] Dr. Jayme Yang Work Phone: [facility] 09-20-2023 15:45-0500 Heart rate 91 /min Dr. Jayme Yang Work Phone: [facility] 09-20-2023 15:45-0500 Respiratory rate 16 /min Dr. Jayme Yang Work Phone: [facility] 09-20-2023 15:45-0500 Systolic blood pressure 159 mm[Hg] Dr. Jayme Yang Work Phone: [facility] 09-20-2023 14:40-0500 SaO2% (BldA) [Mass fraction] 93 % Dr. Jayme Yang Work Phone: 7(376)373-644517 [address] 09-20-2023 12:37-0500 Body height 170.[address] Jayme Yang Work Phone: 4(134)108-218557 [place] [address] 09-20-2023 12:37-0500 Body mass index (BMI) [Ratio] 34 kg/m2 Dr. Jayme Yang Work Phone: 9(921)663-496463 [place] [address] 09-20-2023 12:37-0500 Body weight 98.[address] Jayme Yang Work Phone: 0(558)095-270517 [address] 09-18-2023 08:31-0500 Body height 170.[address] Jayme Yang Work Phone: 0(814)965-196417 [address] 09-18-2023 08:27-0500 Body mass index (BMI) [Ratio] 33.7 kg/m2 Dr. Jayme Yang Work Phone: [facility] 09-18-2023 08:27-0500 Body temperature 97.5 [degF] Dr. Jayme Yang Work Phone: 7(345)188-552817 [address] 09-18-2023 08:27-0500 Body weight 97.[address] Jayme Yang Work Phone: 3(276)218-401263 [place] [address] 09-18-2023 08:27-0500 Diastolic blood pressure 81 mm[Hg] Dr. Jayme Yang Work Phone: 2(354)662-777363 [place] [address] 09-18-2023 08:27-0500 Heart rate 86 /min Dr. Jayme Yang Work Phone: [facility] 09-18-2023 08:27-0500 Respiratory rate 18 /min Dr. Jayme Yang Work Phone: [facility] 09-18-2023 08:27-0500 SaO2% (BldA) [Mass fraction] 92 % Dr. Jayme Yang Work Phone: [facility] 09-18-2023 08:27-0500 Systolic blood pressure 160 mm[Hg] Dr. Jayme Yang Work Phone: [facility] 09-11-2023 08:27-0500 Body mass index (BMI) [Ratio] 34.3 kg/m2 Dr. Jayme Yang Work Phone: [facility] 09-11-2023 08:27-0500 Body temperature 97.3 [degF] Dr. Jayme Yang Work Phone: [facility] 09-11-2023 08:27-0500 Body weight 99.[address] Jayme Yang Work Phone: [facility] 09-11-2023 08:27-0500 Diastolic blood pressure 77 mm[Hg] Dr. Jayme Yang Work Phone: [facility] 09-11-2023 08:27-0500 Heart rate 73 /min Dr. Jayme Yang Work Phone: [facility] 09-11-2023 08:27-0500 Respiratory rate 18 /min Dr. Jayme Yang Work Phone: [facility] 09-11-2023 08:27-0500 SaO2% (BldA) [Mass fraction] 92 % Dr. Jayme Yang Work Phone: [facility] 09-11-2023 08:27-0500 Systolic blood pressure 149 mm[Hg] Dr. Jayme Yang Work Phone: [facility] 09-05-2023 10:28-0500 SaO2% (BldA) [Mass fraction] 93 % Dr. Jayme Yang Work Phone: [facility] 09-05-2023 10:00-0500 Respiratory rate 18 /min Dr. Jayme Yang Work Phone: [facility] 09-05-2023 09:57-0500 Body temperature 98.1 [degF] Dr. Jayme Yang Work Phone: [facility] 09-05-2023 09:57-0500 Diastolic blood pressure 92 mm[Hg] Dr. Jayme Yang Work Phone: [facility] 09-05-2023 09:57-0500 Heart rate 82 /min Dr. Jayme Yang Work Phone: [facility] 09-05-2023 09:57-0500 Systolic blood pressure 165 mm[Hg] Dr. Jayme Yang Work Phone: [facility] 09-05-2023 07:39-0500 Inhaled oxygen flow rate 2 L/min Dr. Jayme Yang Work Phone: [facility] 09-04-2023 14:00-0500 Body temperature 98.9 [degF] Dr. Jayme Yang Work Phone: [facility] 09-04-2023 14:00-0500 Diastolic blood pressure 97 mm[Hg] Dr. aJyme Yang Work Phone: [facility] 09-04-2023 14:00-0500 SaO2% (BldA) [Mass fraction] 95 % Dr. Jayme Yang Work Phone: [facility] 09-04-2023 14:00-0500 Systolic blood pressure 183 mm[Hg] Dr. Jayme Yang Work Phone: [facility] 09-04-2023 09:49-0500 Heart rate 68 /min Dr. Jayme Yang Work Phone: [facility] 09-04-2023 09:28-0500 Respiratory rate 19 /min Dr. Jayme Yang Work Phone: 9(373)587-759735 [place] [address] 09-04-2023 08:15-0500 Inhaled oxygen flow rate 2 L/min Dr. Jayme Yang Work Phone: [facility] 09-04-2023 06:41-0500 Body temperature 97.3 [degF] Dr. Jayme Yang Work Phone: 1(515)485-307517 [address] 09-04-2023 06:41-0500 Diastolic blood pressure 99 mm[Hg] Dr. Jayme Yang Work Phone: 5(852)123-266217 [address] 09-04-2023 06:41-0500 SaO2% (BldA) [Mass fraction] 97 % Dr. Jayme Yang Work Phone: 4(510)724-729457 [place] [address] 09-04-2023 06:41-0500 Systolic blood pressure 204 mm[Hg] Dr. Jayme Yang Work Phone: 2(783)230-290217 [address] 09-04-2023 06:12-0500 Body height 170.[address] Jayme Yang Work Phone: 6(657)798-480217 [address] 09-04-2023 06:12-0500 Body mass index (BMI) [Ratio] 33.1 kg/m2 Dr. Jayme Yang Work Phone: 0(765)926-137617 [address] 09-04-2023 06:12-0500 Body weight 96.[address] Jayme Yang Work Phone: 4(647)413-568717 [address] 09-04-2023 03:16-0500 Heart rate 60 /min Dr. Jayme Yang Work Phone: 9(402)036-188217 [address] 09-04-2023 03:16-0500 Respiratory rate 20 /min Dr. Jayme Yang Work Phone: 9(322)048-198263 [place] [address] 09-03-2023 23:18-0500 Body height 167.[address] Jayme Yang Work Phone: 3(046)156-717457 [place] [address] 09-03-2023 23:18-0500 Body mass index (BMI) [Ratio] 35.9 kg/m2 Dr. Jayme Yang Work Phone: 9(783)778-590463 [place] [address] 09-03-2023 23:18-0500 Body weight 100.[address] Jayme Yang Work Phone: [facility] 08-13-2023 05:56-0500 Body mass index (BMI) [Ratio] 34.7 kg/m2 Dr. Jayme Yang Work Phone: [facility] 08-13-2023 05:56-0500 Body temperature 97.2 [degF] Dr. Jayme Yang Work Phone: [facility] 08-13-2023 05:56-0500 Body weight 97.[address] Jayme Yang Work Phone: [facility] 08-13-2023 05:56-0500 Diastolic blood pressure 85 mm[Hg] Dr. Jayme Yang Work Phone: [facility] 08-13-2023 05:56-0500 Heart rate 74 /min Dr. Jayme Yang Work Phone: [facility] 08-13-2023 05:56-0500 SaO2% (BldA) [Mass fraction] 95 % Dr. Jayme Yang Work Phone: [facility] 08-13-2023 05:56-0500 Systolic blood pressure 174 mm[Hg] Dr. Jayme Yang Work Phone: [facility] 08-07-2023 12:07-0500 Body temperature 97.3 [degF] Dr. Jayme Yang Work Phone: [facility] 08-07-2023 12:07-0500 Diastolic blood pressure 77 mm[Hg] Dr. Jayme Yang Work Phone: [facility] 08-07-2023 12:07-0500 Heart rate 63 /min Dr. Jayme Yang Work Phone: [facility] 08-07-2023 12:07-0500 Respiratory rate 16 /min Dr. Jayme Yang Work Phone: [facility] 08-07-2023 12:07-0500 SaO2% (BldA) [Mass fraction] 92 % Dr. Jayme Yang Work Phone: [facility] 08-07-2023 12:07-0500 Systolic blood pressure 147 mm[Hg] Dr. Jayme Yang Work Phone: [facility] 08-07-2023 11:45-0500 Inhaled oxygen flow rate 4 L/min Dr. Jayme Yang Work Phone: [facility] 08-07-2023 08:56-0500 Body height 167.[address] Jayme Yang Work Phone: [facility] 08-07-2023 08:56-0500 Body mass index (BMI) [Ratio] 35.2 kg/m2 Dr. Jayme Yang Work Phone: 1(197)932-105563 [place] [address] 08-07-2023 08:56-0500 Body weight [address] Jayme Yang Work Phone: 7(821)967-352063 [place] [address] 07-02-2023 09:01-0400 Body mass index (BMI) [Ratio] 33.9 kg/m2 Dr. Jayme Yang Work Phone: [facility] 07-02-2023 09:01-0400 Body temperature 98.2 [degF] Dr. Jayme Yang Work Phone: [facility] 07-02-2023 09:01-0400 Body weight 95.[address] Jayme Yang Work Phone: [facility] 07-02-2023 09:01-0400 Diastolic blood pressure 72 mm[Hg] Dr. Jayme Yang Work Phone: [facility] 07-02-2023 09:01-0400 Heart rate 80 /min Dr. Jayme Yang Work Phone: [facility] 07-02-2023 09:01-0400 Respiratory rate 18 /min Dr. Jayme Yang Work Phone: [facility] 07-02-2023 09:01-0400 SaO2% (BldA) [Mass fraction] 92 % Dr. Jayme Yang Work Phone: [facility] 07-02-2023 09:01-0400 Systolic blood pressure 158 mm[Hg] Dr. Jayme Yang Work Phone: [facility] 05-24-2023 09:43-0400 Body height 170.[address] Jayme Yang Work Phone: [facility] 05-24-2023 09:43-0400 Body mass index (BMI) [Ratio] 34.9 kg/m2 Dr. Jayme Yang Work Phone: [facility] 05-24-2023 09:43-0400 Body weight 101.[address] Jayme Yang Work Phone: [facility] 05-24-2023 09:43-0400 Diastolic blood pressure 81 mm[Hg] Dr. Jayme Yang Work Phone: [facility] 05-24-2023 09:43-0400 Heart rate 74 /min Dr. Jayme Yang Work Phone: [facility] 05-24-2023 09:43-0400 Respiratory rate 20 /min Dr. Jayme Yang Work Phone: [facility] 05-24-2023 09:43-0400 SaO2% (BldA) [Mass fraction] 93 % Dr. Jayme Yang Work Phone: [facility] 05-24-2023 09:43-0400 Systolic blood pressure 150 mm[Hg] Dr. Jayme Yang Work Phone: [facility] 05-21-2023 05:44-0400 Body mass index (BMI) [Ratio] 34.4 kg/m2 Dr. Jayme Yang Work Phone: [facility] 05-21-2023 05:44-0400 Body temperature 96.5 [degF] Dr. Jayme Yang Work Phone: [facility] 05-21-2023 05:44-0400 Body weight 99.[address] Jayme Yang Work Phone: [facility] 05-21-2023 05:44-0400 Diastolic blood pressure 85 mm[Hg] Dr. Jayme Yang Work Phone: [facility] 05-21-2023 05:44-0400 Heart rate 74 /min Dr. Jayme Yang Work Phone: [facility] 05-21-2023 05:44-0400 Respiratory rate 20 /min Dr. Jayme Yang Work Phone: [facility] 05-21-2023 05:44-0400 SaO2% (BldA) [Mass fraction] 96 % Dr. Jayme Yang Work Phone: [facility] 05-21-2023 05:44-0400 Systolic blood pressure 159 mm[Hg] Dr. Jayme Yang Work Phone: [facility] 04-04-2023 07:48-0400 Body height 170.[address] Jayme Yang Work Phone: [phone] [place] [address] 04-04-2023 07:48-0400 Body mass index (BMI) [Ratio] 31.6 kg/m2 Dr. Jayme Yang Work Phone: 7(063)257-740517 [address] 04-04-2023 07:48-0400 Body temperature 97.6 [degF] Dr. Jayme Yang Work Phone: [facility] 04-04-2023 07:48-0400 Body weight 91.[address] Jayme Yang Work Phone: [facility] 04-04-2023 07:48-0400 Diastolic blood pressure 88 mm[Hg] Dr. Jayme Yang Work Phone: [facility] 04-04-2023 07:48-0400 Heart rate 82 /min Dr. Jayme Yang Work Phone: [facility] 04-04-2023 07:48-0400 Respiratory rate 20 /min Dr. Jayme Yang Work Phone: [facility] 04-04-2023 07:48-0400 SaO2% (BldA) [Mass fraction] 94 % Dr. Jayme Yang Work Phone: [facility] 04-04-2023 07:48-0400 Systolic blood pressure 160 mm[Hg] Dr. Jayme Yang Work Phone: [facility] 03-26-2023 14:37-0400 Heart rate 88 /min Dr. Jayme Yang Work Phone: 4(953)159-405163 [place] [address] 03-26-2023 14:37-0400 Respiratory rate 20 /min Dr. Jayme Yang Work Phone: 2(631)268-417517 [address] 03-26-2023 14:37-0400 SaO2% (BldA) [Mass fraction] 91 % Dr. Jayme Yang Work Phone: 9(669)635-118957 [place] [address] 03-26-2023 13:00-0400 Body temperature 98 [degF] Dr. Jayme Yang Work Phone: 3(370)859-801957 [place] [address] 03-26-2023 13:00-0400 Diastolic blood pressure 86 mm[Hg] Dr. Jayme Yang Work Phone: 3(517)109-887357 [place] [address] 03-26-2023 13:00-0400 Systolic blood pressure 158 mm[Hg] Dr. Jayme Yang Work Phone: 4(671)988-725557 [place] [address] 03-25-2023 21:00-0400 Inhaled oxygen flow rate 3 L/min Dr. Jayme Yang Work Phone: 6(067)481-453357 [place] [address] 03-25-2023 13:46-0400 Body height 170.[address] Jayme Yang Work Phone: 6(482)426-885057 [place] [address] 03-25-2023 13:46-0400 Body weight 97.[address] Jayme Yang Work Phone: 4(999)957-079557 [place] [address] 03-21-2023 22:30-0400 Body mass index (BMI) [Ratio] 33.5 kg/m2 Dr. Jayme Yang Work Phone: 5(793)263-922257 [place] [address] 02-07-2023 08:00-0400 Body height 170.[address] Jayme Yang Work Phone: 0(963)208-717917 [address] 02-07-2023 08:00-0400 Body mass index (BMI) [Ratio] 36.3 kg/m2 Dr. Jayme Yang Work Phone: [facility] 02-07-2023 08:00-0400 Body temperature 97.2 [degF] Dr. Jayme Yang Work Phone: [facility] 02-07-2023 08:00-0400 Body weight 105.[address] Jayme Yang Work Phone: 7(287)519-354563 [place] [address] 02-07-2023 08:00-0400 Diastolic blood pressure 76 mm[Hg] Dr. Jayme Yang Work Phone: 8(916)943-123817 [address] 02-07-2023 08:00-0400 Heart rate 70 /min Dr. Jayme Yang Work Phone: 0(138)172-521117 [address] 02-07-2023 08:00-0400 Respiratory rate 20 /min Dr. Jayme Yang Work Phone: 8(911)395-080817 [address] 02-07-2023 08:00-0400 SaO2% (BldA) [Mass fraction] 93 % Dr. Jayme Yang Work Phone: 8(441)436-865717 [address] 02-07-2023 08:00-0400 Systolic blood pressure 143 mm[Hg] Dr. Jayme Yang Work Phone: 6(441)328-885963 [place] [address] 10-22-2022 13:23-0500 Body height 170.[address] Jayme Yang Work Phone: 7(221)158-831263 [place] [address] 10-22-2022 13:23-0500 Body mass index (BMI) [Ratio] 34 kg/m2 Dr. Jyame Yang Work Phone: 6(036)530-066763 [place] [address] 10-22-2022 13:23-0500 Body weight 98.[address] Jayme Yang Work Phone: 1(331)519-753517 [address] 10-22-2022 13:23-0500 Diastolic blood pressure 87 mm[Hg] Dr. Jayme Yang Work Phone: 1(264)943-497217 [address] 10-22-2022 13:23-0500 Systolic blood pressure 146 mm[Hg] Dr. Jayme Yang Work Phone: [facility] 10-05-2022 18:18-0500 Body temperature 98.1 [degF] Dr. Jayme Yang Work Phone: [facility] 10-05-2022 18:18-0500 Diastolic blood pressure 80 mm[Hg] Dr. Jayme Yang Work Phone: [facility] 10-05-2022 18:18-0500 Heart rate 88 /min Dr. Jayme Yang Work Phone: [facility] 10-05-2022 18:18-0500 Respiratory rate 18 /min Dr. Jayme Yang Work Phone: [facility] 10-05-2022 18:18-0500 SaO2% (BldA) [Mass fraction] 97 % Dr. Jayme Yang Work Phone: [facility] 10-05-2022 18:18-0500 Systolic blood pressure 144 mm[Hg] Dr. Jayme Yagn Work Phone: [facility] 10-05-2022 10:24-0500 Body height 170.[address] Jayme Yang Work Phone: [facility] 10-05-2022 10:24-0500 Body weight 98.[address] Jayme Yang Work Phone: [facility] 10-04-2022 23:35-0500 Inhaled oxygen flow rate 2 L/min Dr. Jayme Yang Work Phone: [facility] 10-04-2022 19:28-0500 Body temperature 98.8 [degF] Dr. Jayme Yang Work Phone: [facility] Work Phone: 10-04-2022 19:28-0500 Diastolic blood pressure 72 mm[Hg] Dr. Jayme Yang Work Phone: [facility] Work Phone: 10-04-2022 19:28-0500 Heart rate 84 /min Dr. Jayme Yang Work Phone: [facility] Work Phone: 10-04-2022 19:28-0500 Inhaled oxygen flow rate 2 L/min Dr. Jayme Yang Work Phone: [facility] Work Phone: 10-04-2022 19:28-0500 Respiratory rate 18 /min Dr. Jayme Yang Work Phone: [facility] Work Phone: 10-04-2022 19:28-0500 SaO2% (BldA) [Mass fraction] 94 % Dr. Jayme Yang Work Phone: [facility] Work Phone: 10-04-2022 19:28-0500 Systolic blood pressure 149 mm[Hg] Dr. Jayme Yang Work Phone: [facility] Work Phone: 10-04-2022 19:19-0500 Body height 170.[address] Jayme Yang Work Phone: [facility] Work Phone: 10-04-2022 19:19-0500 Body mass index (BMI) [Ratio] 33.9 kg/m2 Dr. Jayme Yang Work Phone: [facility] 10-04-2022 19:19-0500 Body weight 98.[address] Jayme Yang Work Phone: [facility] Work Phone: 10-02-2022 19:00-0500 Body temperature 97.6 [degF] Dr. Jayme Yang Work Phone: [facility] 10-02-2022 19:00-0500 Diastolic blood pressure 82 mm[Hg] Dr. Jayme Yang Work Phone: [facility] 10-02-2022 19:00-0500 Heart rate 83 /min Dr. Jayme Yang Work Phone: [facility] 10-02-2022 19:00-0500 Respiratory rate 18 /min Dr. Jayme Yang Work Phone: [facility] 10-02-2022 19:00-0500 SaO2% (BldA) [Mass fraction] 92 % Dr. Jayme Yang Work Phone: [facility] 10-02-2022 19:00-0500 Systolic blood pressure 184 mm[Hg] Dr. Jayme Yang Work Phone: [facility] 10-02-2022 10:25-0500 Body height 170.[address] Jayme Yang Work Phone: [facility] Work Phone: 10-02-2022 10:25-0500 Body mass index (BMI) [Ratio] 35 kg/m2 Dr. Jayme Yang Work Phone: [facility] 10-02-2022 10:25-0500 Body weight 101.[address] Jayme aYng Work Phone: [facility] 09-06-2022 14:55-0500 Body height 170.[address] Jayme Yang Work Phone: [facility] Work Phone: 09-06-2022 14:55-0500 Body mass index (BMI) [Ratio] 33.6 kg/m2 Dr. Jayme Yang Work Phone: [facility] 09-06-2022 14:55-0500 Body weight 97.[address] Jayme Yang Work Phone: [facility] 09-06-2022 14:55-0500 Diastolic blood pressure 91 mm[Hg] Dr. Jayme Yang Work Phone: [facility] 09-06-2022 14:55-0500 Heart rate 65 /min Dr. Jayme Yang Work Phone: [facility] 09-06-2022 14:55-0500 Respiratory rate 18 /min Dr. Jayme Yang Work Phone: [facility] 09-06-2022 14:55-0500 SaO2% (BldA) [Mass fraction] 94 % Dr. Jayme Yang Work Phone: [facility] 09-06-2022 14:55-0500 Systolic blood pressure 171 mm[Hg] Dr. Jayme Yang Work Phone: [facility] 08-13-2022 10:46-0500 Body height 170.[address] Jayme Yang Work Phone: [facility] Work Phone: 08-13-2022 10:46-0500 Body mass index (BMI) [Ratio] 33.5 kg/m2 Dr. Jayme Yang Work Phone: [facility] 08-13-2022 10:46-0500 Body temperature 98.2 [degF] Dr. Jayme Yang Work Phone: [facility] 08-13-2022 10:46-0500 Body weight 97.[address] Jayme Yang Work Phone: [facility] 08-13-2022 10:46-0500 Diastolic blood pressure 86 mm[Hg] Dr. Jayme Yang Work Phone: [facility] 08-13-2022 10:46-0500 Heart rate 72 /min Dr. Jayme Yang Work Phone: [facility] 08-13-2022 10:46-0500 Respiratory rate 18 /min Dr. Jayme Yang Work Phone: [facility] 08-13-2022 10:46-0500 SaO2% (BldA) [Mass fraction] 96 % Dr. Jayme Yang Work Phone: [facility] 08-13-2022 10:46-0500 Systolic blood pressure 182 mm[Hg] Dr. Jayme Yang Work Phone: [facility] 06-21-2022 08:15-0400 Body height 170.[address] Jayme Yang Work Phone: [facility] Work Phone: 06-21-2022 08:15-0400 Body weight 92.[address] Jayme Yang Work Phone: [facility] 06-21-2022 08:15-0400 Heart rate 88 /min Dr. Jayme Yang Work Phone: [facility] 06-21-2022 08:15-0400 SaO2% (BldA) [Mass fraction] 93 % Dr. Jayme Yang Work Phone: [facility] 04-24-2022 13:32-0400 Body mass index (BMI) [Ratio] 30 kg/m2 Dr. Jayme Yang Work Phone: [facility] Work Phone: 04-24-2022 13:32-0400 Body weight 87.[address] Jayme Yang Work Phone: [facility] Work Phone: 04-24-2022 13:32-0400 Diastolic blood pressure 86 mm[Hg] Dr. Jayme Yang Work Phone: [facility] Work Phone: 04-24-2022 13:32-0400 Heart rate 82 /min Dr. Jayme Yang Work Phone: [facility] Work Phone: 04-24-2022 13:32-0400 Respiratory rate 18 /min Dr. Jayme Yang Work Phone: [facility] Work Phone: 04-24-2022 13:32-0400 SaO2% (BldA) [Mass fraction] 95 % Dr. Jayme Yang Work Phone: [facility] Work Phone: 04-24-2022 13:32-0400 Systolic blood pressure 163 mm[Hg] Dr. Jayme Yang Work Phone: [facility] Work Phone: 02-13-2022 11:30-0400 Diastolic blood pressure 90 mm[Hg] Dr. Jayme Yang Work Phone: [facility] Work Phone: 02-13-2022 11:30-0400 Systolic blood pressure 174 mm[Hg] Dr. Jayme Yang Work Phone: [facility] Work Phone: 02-13-2022 11:30-0400 Diastolic blood pressure 90 mm[Hg] Dr. Jayme Yang Work Phone: [facility] Work Phone: 02-13-2022 11:30-0400 Systolic blood pressure 174 mm[Hg] Dr. Jayme Yang Work Phone: [facility] Work Phone: 02-13-2022 10:50-0400 Body height 170.[address] Jayme Yang Work Phone: [facility] Work Phone: 02-13-2022 10:50-0400 Body mass index (BMI) [Ratio] 33 kg/m2 Dr. Jayme Yang Work Phone: [facility] Work Phone: 02-13-2022 10:50-0400 Body temperature 97.4 [degF] Dr. Jayme Yang Work Phone: [facility] Work Phone: 02-13-2022 10:50-0400 Body weight 95.[address] Jayme Yang Work Phone: [facility] Work Phone: 02-13-2022 10:50-0400 Heart rate 80 /min Dr. Jayme Yang Work Phone: [facility] Work Phone: 02-13-2022 10:50-0400 Respiratory rate 16 /min Dr. Jayme Yang Work Phone: [facility] Work Phone: 02-13-2022 10:50-0400 SaO2% (BldA) [Mass fraction] 91 % Dr. Jayme Yang Work Phone: [facility] Work Phone: 02-13-2022 10:50-0400 Body height 170.[address] Jayme Yang Work Phone: [facility] Work Phone: 02-13-2022 10:50-0400 Body mass index (BMI) [Ratio] 33 kg/m2 Dr. Jayme Yang Work Phone: [facility] Work Phone: 02-13-2022 10:50-0400 Body temperature 97.4 [degF] Dr. Jayme Yang Work Phone: [facility] Work Phone: 02-13-2022 10:50-0400 Body weight 95.[address] Jayme Yang Work Phone: [facility] Work Phone: 02-13-2022 10:50-0400 Heart rate 80 /min Dr. Jayme Yang Work Phone: [facility] Work Phone: 02-13-2022 10:50-0400 Respiratory rate 16 /min Dr. Jayme Yang Work Phone: [facility] Work Phone: 02-13-2022 10:50-0400 SaO2% (BldA) [Mass fraction] 91 % Dr. Jayme Yang Work Phone: [facility] Work Phone: 01-26-2022 09:58-0400 Body mass index (BMI) [Ratio] 33.5 kg/m2 Dr. Jayme Yang Work Phone: [facility] Work Phone: 01-26-2022 09:58-0400 Body weight 97.[address] Jayme Yang Work Phone: [facility] Work Phone: 01-26-2022 09:58-0400 Diastolic blood pressure 78 mm[Hg] Dr. Jayme Yang Work Phone: [facility] Work Phone: 01-26-2022 09:58-0400 Heart rate 69 /min Dr. Jayme Yang Work Phone: [facility] Work Phone: 01-26-2022 09:58-0400 Respiratory rate 18 /min Dr. Jayme Yang Work Phone: [facility] Work Phone: 01-26-2022 09:58-0400 Systolic blood pressure 143 mm[Hg] Dr. Jayme Yang Work Phone: [facility] Work Phone: 01-26-2022 09:58-0400 Body mass index (BMI) [Ratio] 33.5 kg/m2 Dr. Jayme Yang Work Phone: [facility] Work Phone: 01-26-2022 09:58-0400 Body weight 97.[address] Jayme Yang Work Phone: [facility] Work Phone: 01-26-2022 09:58-0400 Diastolic blood pressure 78 mm[Hg] Dr. Jayme Yang Work Phone: [facility] Work Phone: 01-26-2022 09:58-0400 Heart rate 69 /min Dr. Jayme Yang Work Phone: [facility] Work Phone: 01-26-2022 09:58-0400 Respiratory rate 18 /min Dr. Jayme Yang Work Phone: [facility] Work Phone: 01-26-2022 09:58-0400 Systolic blood pressure 143 mm[Hg] Dr. Jayme Yang Work Phone: [facility] Work Phone: 12-23-2021 09:38-0400 Heart rate 75 /min Dr. Jayme Yang Work Phone: [facility] Work Phone: 12-23-2021 09:28-0400 Body temperature 97.1 [degF] Dr. Jayme Yang Work Phone: [facility] Work Phone: 12-23-2021 09:28-0400 Diastolic blood pressure 93 mm[Hg] Dr. Jayme Yang Work Phone: [facility] Work Phone: 12-23-2021 09:28-0400 Respiratory rate 18 /min Dr. Jayme Yang Work Phone: [facility] Work Phone: 12-23-2021 09:28-0400 SaO2% (BldA) [Mass fraction] 98 % Dr. Jayme Yang Work Phone: [facility] Work Phone: 12-23-2021 09:28-0400 Systolic blood pressure 163 mm[Hg] Dr. Jayme Yang Work Phone: [facility] Work Phone: 12-23-2021 03:23-0400 Inhaled oxygen flow rate 2 L/min Dr. Jayme Yang Work Phone: [facility] Work Phone: 12-21-2021 15:35-0400 Body height 170.[address] Jayme Yang Work Phone: [facility] Work Phone: 12-21-2021 15:35-0400 Body mass index (BMI) [Ratio] 33 kg/m2 Dr. Jayme Yang Work Phone: [facility] Work Phone: 12-21-2021 15:35-0400 Body weight 95.[address] Jayme Yang Work Phone: [facility] Work Phone: 12-18-2021 09:33-0400 Body weight 101.[address] Jayme Yang Work Phone: [facility] Work Phone: 12-18-2021 08:53-0400 Body mass index (BMI) [Ratio] 37 kg/m2 Dr. Jayme Yang Work Phone: [facility] Work Phone: 12-13-2021 10:04-0400 Body mass index (BMI) [Ratio] 37 kg/m2 Dr. Jayme Yang Work Phone: [facility] Work Phone: 12-13-2021 10:04-0400 Body weight 101.[address] Jayme Yang Work Phone: [facility] Work Phone: 12-13-2021 10:04-0400 Diastolic blood pressure 80 mm[Hg] Dr. Jayme Yang Work Phone: [facility] Work Phone: 12-13-2021 10:04-0400 Heart rate 80 /min Dr. Jayme Yang Work Phone: [facility] Work Phone: 12-13-2021 10:04-0400 Respiratory rate 16 /min Dr. Jayme Yang Work Phone: [facility] Work Phone: 12-13-2021 10:04-0400 Systolic blood pressure 159 mm[Hg] Dr. Jayme Yang Work Phone: [facility] Work Phone: 12-13-2021 10:04-0400 Body mass index (BMI) [Ratio] 37 kg/m2 Dr. Jayme Yang Work Phone: [facility] Work Phone: 12-13-2021 10:04-0400 Body weight 101.[address] Jayme Yang Work Phone: [facility] Work Phone: 12-13-2021 10:04-0400 Diastolic blood pressure 80 mm[Hg] Dr. Jayme Yang Work Phone: [facility] Work Phone: 12-13-2021 10:04-0400 Heart rate 80 /min Dr. Jayme Yang Work Phone: [facility] Work Phone: 12-13-2021 10:04-0400 Respiratory rate 16 /min Dr. Jayme Yang Work Phone: [facility] Work Phone: 12-13-2021 10:04-0400 Systolic blood pressure 159 mm[Hg] Dr. Jayme Yang Work Phone: [facility] Work Phone: 11-06-2021 07:30-0500 Body mass index (BMI) [Ratio] 37.8 kg/m2 Dr. Jayme Yang Work Phone: [facility] Work Phone: 11-06-2021 07:30-0500 Body weight 103.[address] Jayme Yang Work Phone: [facility] Work Phone: 11-06-2021 07:30-0500 Diastolic blood pressure 92 mm[Hg] Dr. Jayme Yang Work Phone: [facility] Work Phone: 11-06-2021 07:30-0500 Heart rate 64 /min Dr. Jayme Yang Work Phone: [facility] Work Phone: 11-06-2021 07:30-0500 Respiratory rate 18 /min Dr. Jayme Yang Work Phone: [facility] Work Phone: 11-06-2021 07:30-0500 Systolic blood pressure 162 mm[Hg] Dr. Jayme Yang Work Phone: [facility] Work Phone: 10-13-2021 09:10-0500 Body mass index (BMI) [Ratio] 37.5 kg/m2 Dr. Jayme Yang Work Phone: [facility] Work Phone: 10-13-2021 09:10-0500 Body temperature 97.3 [degF] Dr. Jayme Yang Work Phone: [facility] Work Phone: 10-13-2021 09:10-0500 Body weight 102.[address] Jayme Yang Work Phone: [facility] Work Phone: 10-13-2021 09:10-0500 Diastolic blood pressure 82 mm[Hg] Dr. Jayme Yang Work Phone: [facility] Work Phone: 10-13-2021 09:10-0500 Heart rate 72 /min Dr. Jayme Yang Work Phone: [facility] Work Phone: 10-13-2021 09:10-0500 Respiratory rate 16 /min Dr. Jayme Yang Work Phone: [facility] Work Phone: 10-13-2021 09:10-0500 SaO2% (BldA) [Mass fraction] 94 % Dr. Jayme Yang Work Phone: [facility] Work Phone: 10-13-2021 09:10-0500 Systolic blood pressure 155 mm[Hg] Dr. Jayme Yang Work Phone: [facility] Work Phone: 09-26-2021 08:17-0500 Body mass index (BMI) [Ratio] 36.8 kg/m2 Dr. Jayme Yang Work Phone: [facility] Work Phone: 09-26-2021 08:17-0500 Body weight 100.[address] Jayme Yang Work Phone: [facility] Work Phone: 08-25-2021 08:36-0500 Body temperature 96.7 [degF] Dr. Jayme Yang Work Phone: [facility] Work Phone: 08-25-2021 08:36-0500 Body weight 102.[address] Jayme Yang Work Phone: [facility] Work Phone: 08-25-2021 08:36-0500 Diastolic blood pressure 82 mm[Hg] Dr. Jayme Yang Work Phone: [facility] Work Phone: 08-25-2021 08:36-0500 Heart rate 84 /min Dr. Jayme Yang Work Phone: [facility] Work Phone: 08-25-2021 08:36-0500 Respiratory rate 18 /min Dr. Jayme Yang Work Phone: [facility] Work Phone: 08-25-2021 08:36-0500 SaO2% (BldA) [Mass fraction] 94 % Dr. Jayme Yang Work Phone: [facility] Work Phone: 08-25-2021 08:36-0500 Systolic blood pressure 130 mm[Hg] Dr. Jayme Yang Work Phone: [facility] Work Phone: 03-22-2017 09:32-0400 BMI (Body Mass Index) 34.12 kg/m2 Kaylene Chong [facility] Work Phone: 03-22-2017 09:32-0400 BP Diastolic 88 mm[Hg] Kaylene Castillo [facility] Work Phone: 03-22-2017 09:32-0400 BP Systolic 146 mm[Hg] Kaylene Chong [facility] Work Phone: 03-22-2017 09:32-0400 Height 167.64 cm Kaylene Chong [facility] Work Phone: 03-22-2017 09:32-0400 Pulse (Heart Rate) 72 /min Kaylene Chong [facility] Work Phone: 03-22-2017 09:32-0400 Respiratory Rate 20 /min Kaylene Chong [facility] Work Phone: 03-22-2017 09:32-0400 Weight 95.89 kg Kaylene Chong [facility] Work Phone: 12-13-2016 14:06-0400 Heart rate 71 /min Harumi Mary [facility] Work Phone: 12-13-2016 13:33-0400 BMI (Body Mass Index) 34.21 kg/m2 Yasmin [facility] Work Phone: 12-13-2016 13:33-0400 BP Diastolic 78 mm[Hg] Yasmin Roland RN [facility] Work Phone: 12-13-2016 13:33-0400 BP Systolic 138 mm[Hg] Yasmin Roland RN [facility] Work Phone: 12-13-2016 13:33-0400 Height 167.64 cm Yasmin Roland RN [facility] Work Phone: 12-13-2016 13:33-0400 Pulse (Heart Rate) 80 /min Yasmin Roland RN [facility] Work Phone: 12-13-2016 13:33-0400 Respiratory Rate 16 /min Yasmin Roland RN [facility] Work Phone: 12-13-2016 13:33-0400 Weight 96.16 kg Yasmin Roland RN [facility] Work Phone: Encounters Encounter Date Encounter Type Care Provider Facility Start: 03-04-2025 End: 03-04-[address] Jayme Yang MD Work Phone: [facility] Work Phone: Start: 03-04-2025 End: 03-04-2025 Dr. Marycruz Yen MD -Laboratory [facility] Work Phone: Start: 03-04-2025 End: 03-04-2025 ambulatory Marycruz Yen Facility:[facility] Start: 02-15-2025 End: 02-15-2025 Dr. Jayme Yang MD Work Phone: -Emergency Department Work Phone: Start: 02-15-2025 End: 02-15-2025 Emergency department patient visit Dr. Jayme Yang MD Work Phone: [facility] Work Phone: Start: 01-06-2025 End: 01-06-[address] Jayme Yang MD Work Phone: [facility] Work Phone: Start: 01-06-2025 End: 01-06-[address] Juany Bellamy DO -Laboratory, [place] Work Phone: Start: 01-06-2025 End: 01-06-2025 Dr. Juany Bellamy DO -Laboratory [facility] Work Phone: Start: 01-06-2025 End: 01-06-2025 ambulatory Juany Bellamy Facility:[facility] Start: 12-25-2024 End: 12-25-[address] Jayme Yang MD Work Phone: [facility] Work Phone: Start: 12-25-2024 End: 12-25-[address] Surinder Larson MD -Laboratory, [place] Work Phone: Start: 12-25-2024 End: 12-25-2024 Dr. Surinder Larson MD -Laboratory, [place] Work Phone: Start: 12-25-2024 End: 12-25-2024 ambulatory Suirnder Larson Facility:[facility] Start: 12-10-2024 ambulatory Teja Jefferson SCHEDULE ANNOUNCER Facility :[facility] Start: 12-10-2024 Non-patient / Non-visit Dr. Isha Cordero MD -[facility] Start: 12-10-2024 Dr. Clifford Cordero MD -[facility] Start: 12-10-2024 End: 12-10-[address] Jayme Yang MD Work Phone: [facility] Work Phone: Start: 12-10-2024 End: 12-10-2024 Patient encounter procedure Teja Jefferson SCHEDULE ANNOUNCER-C -[facility] Work Phone: Start: 12-10-2024 End: 12-10-2024 Teja Jefferson SCHEDULE ANNOUNCER-C -[facility] Work Phone: Start: 12-10-2024 End: 12-10-2024 ambulatory Teja Jefferson SCHEDULE ANNOUNCER Facility:[facility] Start: 11-27-2024 End: 11-27-2024 Patient encounter procedure Teja Jefferson SCHEDULE ANNOUNCER-C -[facility] Work Phone: Start: 11-27-2024 End: 11-27-2024 Teja Jefferson SCHEDULE ANNOUNCER-C -[facility] Work Phone: Start: 11-27-2024 End: 11-27-2024 ambulatory Teja Jefferson NP Facility:[facility] Start: 11-17-2024 End: 11-17-2024 Patient encounter procedure Emerald Campos NP-C -[facility] Work Phone: Start: 11-17-2024 End: 11-17-2024 Emerald Campos SCHEDULE ANNOUNCER-C -[facility] Work Phone: Start: 11-17-2024 End: 11-17-2024 ambulatory Jayme Yang Facility:[facility] Start: 10-26-2024 End: 10-26-[address] [facility] Work [facility] Start: 10-26-2024 End: 10-26-2024 Dr. Jayme Yang MD -Laboratory, [facility] Work Phone: Start: 10-26-2024 End: 10-26-2024 ambulatory Jayme Yang Facility:[facility] Start: 10-06-2024 End: 10-06-[address] [facility] Start: 10-06-2024 End: 10-06-2024 [facility] Work [facility] Start: 10-06-2024 End: 10-06-2024 ambulatory Keo Montemayor Facility:[facility] Start: 10-05-2024 End: 10-05-[address] Keo Montemayor DO -Laboratory, [place] Work Phone: Start: 10-05-2024 End: 10-05-2024 Dr. Keo Montemayor DO -Laboratory, [facility] Work Phone: Start: 10-05-2024 End: 10-05-2024 ambulatory Keo Montemayor Facility:[facility] Start: 09-12-2024 End: 09-12-2024 Dr. Marycruz Yen MD -Laboratory Work Phone: Start: 09-12-2024 End: 09-12-2024 ambulatory Marycruz Yen Facility:[facility] Start: 08-06-2024 End: 08-06-2024 ambulatory Jayme Yang Facility:[facility] Start: 07-17-2024 End: 07-17-2024 ambulatory Juany Bellamy Facility:[facility] Start: 06-26-2024 End: 06-26-2024 ambulatory Jayme Yang Facility:[facility] Start: 06-25-2024 End: 06-25-2024 ambulatory Usha Lowry Facility:[facility] Start: 06-23-2024 End: 06-23-2024 ambulatory Jayme Yang Facility:[facility] Start: 05-27-2024 End: 05-27-2024 ambulatory Jayme Yang Facility:[facility] Start: 05-22-2024 End: 05-22-2024 ambulatory Jayme Yang Facility:[facility] Start: 05-06-2024 End: 05-06-2024 ambulatory Jayme Yang Facility:[facility] Start: 05-01-2024 End: 05-01-2024 ambulatory Jayme Yang Facility:[facility] Start: 04-24-2024 End: 04-24-2024 ambulatory Jayme Yang Facility:[facility] Start: 04-06-2024 End: 04-06-2024 ambulatory Keo Montemayor Facility:[facility] Start: 04-03-2024 End: 04-03-2024 ambulatory Keo Nooksack Facility:[facility] Start: 03-20-2024 End: 03-20-2024 ambulatory Marycruz Yen Facility:[facility] Start: 03-13-2024 End: 03-13-2024 ambulatory Jayme Yang Facility:[facility] Start: 03-10-2024 End: 03-10-2024 ambulatory Jayme Yang Facility:[facility] Start: 01-10-2024 End: 01-10-[address] Jayme Yang Work Phone: [facility] Work Phone: Start: 01-10-2024 End: 01-10-2024 Dr. Jayme Yang Work Phone: [facility] Work Phone: Start: 12-11-2023 End: 12-11-[address] Jayme Yang Work Phone: [facility] Work Phone: Start: 12-11-2023 End: 12-11-2023 Dr. Jayme Yang Work Phone: [facility] Work Phone: Start: 11-21-2023 End: 11-21-2023 Dr. Jayme Yang Work Phone: [facility]Pulmonary Medicine [facility] Work Phone: Start: 11-19-2023 End: 11-19-2023 Dr. Jayme Yang Work Phone: [facility] Work Phone: Start: 11-13-2023 Dr. Jayme Rollins en Work Phone: [facility] Work Phone: Start: 11-13-2023 Dr. Jayme bowie Work Phone: [facility] Start: 11-12-2023 End: 11-13-2023 Evaluation and management of inpatient Dr. Jayme Yang Work Phone: [facility] Work Phone: Start: 11-12-2023 End: 11-13-2023 Dr. Jayme Yang Work Phone: [facility]-Progressive Care Unit Work Phone: Start: 11-12-2023 Dr. Jayme Rollins en Work Phone: [facility] Work Phone: Start: 11-12-2023 Dr. Jayme bowie Work Phone: [facility] Start: 11-12-2023 Dr. Jayme Rollins en Work Phone: [facility] Start: 11-11-[address] Jayme Yang Work Phone: [facility] Work Phone: Start: 11-11-2023 End: 11-11-2023 Dr. Jayme Yang Work Phone: [facility]-Progressive Care Unit Work Phone: Start: 11-08-2023 Dr. Jayme Rollins en Work Phone: [facility]-Radiation Oncology Start: 10-18-2023 Dr. Jayme bowie Work Phone: [facility] Work Phone: Start: 10-16-2023 End: 10-16-[address] Jayme Yang Work Phone: [facility] Work Phone: Start: 10-16-2023 End: 10-16-2023 Dr. Jayme Yang Work Phone: [facility]-Laboratory Work Phone: Start: 10-16-2023 End: 10-16-2023 Dr. Jayme Yang Work Phone: [facility] Work Phone: Start: 10-09-2023 End: 10-09-2023 Dr. Jayme Yang Work Phone: [facility] Work Phone: Start: 10-02-2023 End: 10-02-2023 Dr. Jayme Yang Work Phone: [facility] Work Phone: Start: 09-25-2023 End: 09-25-2023 Dr. Jayme Yang Work Phone: [facility] Work Phone: Start: 09-24-2023 Dr. Jayme bowie Work Phone: [facility]-Radiation Oncology Start: 09-23-2023 Dr. Jayme bowie Work Phone: [facility] Work Phone: Start: 09-22-2023 End: 09-24-2023 Evaluation and management of inpatient Dr. Jayme Yang Work Phone: [facility] Work Phone: Start: 09-22-2023 End: 09-24-2023 Dr. Jayme Yang Work Phone: [facility]-Medical Surgical 3 Work Phone: Start: 09-22-2023 Dr. Jayme bowie Work Phone: [facility] Work Phone: Start: 09-21-2023 Dr. Jayme Rollins en Work Phone: [facility] Work Phone: Start: 09-20-2023 Dr. Jayme Rollins en Work Phone: [facility] Work Phone: Start: 09-20-[address] Jayme Yang Work Phone: [facility] Work Phone: Start: 09-20-[address] Jayme Yang Work Phone: [facility]-Radiation Oncology Start: 09-20-2023 Dr. Jayme bowie Work Phone: [facility]-Medical Surgical 3 Work Phone: Start: 09-18-2023 End: 09-18-[address] Jayme Yang Work Phone: [facility] Work Phone: Start: 09-18-2023 End: 09-18-2023 Dr. Jayme Yang Work Phone: [facility] Work Phone: Start: 09-16-2023 End: 09-16-[address] Jayme Yang Work Phone: [facility] Work Phone: Start: 09-16-2023 End: 09-16-[address] Jayme Yang Work Phone: [facility]-Laboratory Work Phone: Start: 09-16-2023 End: 09-16-2023 Dr. Jayme Yang Work Phone: [facility]-Laboratory Work Phone: Start: 09-11-2023 End: 09-11-[address] Jayme Yang Work Phone: [facility] Work Phone: Start: 09-11-2023 End: 09-11-2023 Dr. Jayme Yang Work Phone: [facility] Work Phone: Start: 09-05-2023 Non-patient / Non-visit Dr. Adry Yang Work Phone: [facility] Work Phone: Start: 09-05-2023 Dr. Jayme Rollins en Work Phone: [facility] Work Phone: Start: 09-04-2023 End: 09-05-2023 Evaluation and management of inpatient [facility] Start: 09-04-2023 End: 09-05-2023 Dr. Jayme [facility] Start: 08-29-2023 Non-patient / Non-visit Dr. Adry Yang Work Phone: [facility] Start: 08-29-2023 Dr. Jayme Rollins en Work Phone: [facility] Start: 08-29-[address] Jay[facility] Start: 08-29-2023 End: 08-29-[address] Jayme Yang Work Phone: [facility] Work Phone: Start: 08-29-2023 End: 08-29-[address] Jayme Yang Work Phone: [facility] Work Phone: Start: 08-29-2023 End: 08-29-2023 Dr. Jayme Yang Work Phone: [facility] Work Phone: Start: 08-13-2023 End: 08-13-[address] [facility] Work Phone: Start: 08-13-2023 End: 08-13-2023 Dr. Jayme Yang Work Phone: [facility] Work Phone: Start: 08-07-2023 End: 08-07-2023 Admission to [facility] Dr[facility] Jayme [facility]: [facility] Start: 08-07-2023 End: 08-07-[address] Jayme Yang Work Phone: [facility] Work Phone: Start: 08-07-2023 End: 08-07-2023 Dr. Jayme [facility]: [facility] Start: 07-02-2023 End: 07-02-[address] Jayme Yang Work Phone: [facility] Work Phone: Start: 07-02-2023 End: 07-02-2023 Dr. Jayme Yang Work Phone: [facility] Work Phone: Start: 06-04-2023 End: 06-04-[address] Jayme Yang Work Phone: [facility] Work Phone: Start: 06-04-2023 End: 06-04-[address] Jayme [facility]: [facility] Work Phone: Start: 06-04-2023 End: 06-04-2023 Dr. Jayme Yang Work Phone: [facility] Work Phone: Start: 05-30-2023 End: 05-30-[address] Jayme Yang Work Phone: [facility] Work Phone: Start: 05-30-2023 End: 05-30-[address] Jayme Yang Work Phone: [facility] Work Phone: Start: 05-30-2023 End: 05-30-2023 Dr. Jayme Yang Work Phone: [facility] Work Phone: Start: 05-24-2023 End: 05-24-[address] Jayme Yang Work Phone: [facility] Work Phone: Start: 05-24-2023 End: 05-24-2023 Dr. Jayme Yang Work Phone: [facility] Work Phone: Start: 05-21-2023 End: 05-21-[address] Jayme Yang Work Phone: [facility] Work Phone: Start: 05-13-2023 End: 05-13-[address] Jayme Yang Work Phone: [facility] Work Phone: Start: 05-13-2023 End: 05-13-[address] Jayme Yang Work Phone: [facility]-Laboratory, Specimen Work Phone: Start: 04-16-2023 End: 04-16-[address] Jayme Yang Work Phone: [facility] Work Phone: Start: 04-16-2023 End: 04-16-[address] Jayme Yang Work Phone: [facility]-Laboratory Work Phone: Start: 04-04-2023 End: 04-04-[address] Jayme Yang Work Phone: [facility] Work Phone: Start: 04-01-2023 End: 04-01-[address] Jayme Yang Work Phone: [facility] Work Phone: Start: 04-01-2023 End: 04-01-[address] Jay[facility] Work Phone: Start: 03-26-2023 Non-patient / Non-visit Dr. Adry Yang Work Phone: [facility] Start: 03-25-2023 Non-patient / Non-visit Dr. Adry Yang Work Phone: [facility] Start: 03-24-2023 Non-patient / Non-visit Dr. Adry Yang Work Phone: [facility] Start: 03-23-2023 Non-patient / Non-visit Dr. Adry Yang Work Phone: [facility] Start: 03-22-2023 Non-patient / Non-visit Dr. Adry Yang Work Phone: [facility] Start: 03-21-2023 End: 03-26-2023 Evaluation and management of inpatient Dr. Jayme Yang Work Phone: [facility]-Medical Surgical 3 Start: 03-21-2023 Non-patient / Non-visit Dr. Adry Yang Work Phone: [facility] Start: 02-28-2023 End: 02-28-[address] Jayme Yang Work Phone: [facility] Work Phone: Start: 02-28-2023 End: 02-28-[address] Jayme Yang [facility] Phone[facility] Start: 02-07-2023 End: 02-07-[address] Jayme Yang Work Phone: [facility] Start: 01-03-2023 End: 01-03-[address] Jayme Yagn Work Phone: [facility] Start: 12-20-2022 End: 12-20-[address] Jayme Yang Work Phone: [facility] Work Phone: Start: 12-20-2022 End: 12-20-[address] Jayme Yang Work Phone: [facility] Start: 12-20-2022 End: 12-20-2022 Dr. Jayme Yang Work Phone: [facility] Start: 11-09-2022 End: 11-09-[address] Jayme Yang Work Phone: [facility] Work Phone: Start: 11-09-2022 End: 11-09-[address] Jayme Yang Work Phone: [facility] Start: 11-09-2022 End: 11-09-2022 Dr. Jayme Yang Work Phone: [facility] Start: 11-08-2022 End: 11-08-[address] Jayme Yang Work Phone: [facility] Work Phone: Start: 11-08-2022 End: 11-08-[address] Jayme Yang Work Phone: [facility] Start: 11-08-2022 End: 11-08-2022 Dr. Jayme Yang Work Phone: [facility] Start: 10-22-2022 End: 10-22-2022 Dr. Jayme Yang Work Phone: [facility] Start: 10-05-2022 Non-patient / Non-visit Dr. Adry Yang Work Phone: [facility] Phys[facility] Start: 10-05-2022 Dr. Jayme Rollins en Work Phone: [facility] Start: 10-04-2022 Non-patient / Non-visit Dr. Adry Yang Work Phone: [facility] Start: 10-04-2022 End: 10-05-2022 Evaluation and management of inpatient Dr. Jayme Yang [facility] Start: 10-04-2022 End: 10-05-[address] Jayme Yang Work Phone: [facility] Work Phone: Start: 10-04-2022 End: 10-05-2022 Dr. Jayme Yang Work Phone: [facility] Surgical 3 Start: 10-02-2022 End: 10-02-2022 Emergency department patient visit Dr. Jayme Yang Work Phone: [facility]-Emergency Department Start: 10-02-2022 End: 10-02-2022 Dr. Jayme Yang Work Phone: [facility]-Emergency Department Start: 10-02-2022 End: 10-02-[address] Jayme Yang Work Phone: [facility] Work Phone: Start: 10-02-2022 End: 10-02-[address] Jayme Yang Work Phone: [facility] Start: 10-02-2022 End: 10-02-2022 Dr. Jayme Yang Work Phone: [facility] Start: 09-06-2022 End: 09-06-[address] Jayme Yang Work Phone: [facility] Work Phone: Start: 09-06-2022 End: 09-06-[address] Jayme Yang Work Phone: [facility] Start: 09-06-2022 End: 09-06-2022 Dr. Jayme Yang Work Phone: [facility] Start: 09-06-2022 End: 09-06-[address] Jayme Yang Work Phone: [facility] Start: 09-06-2022 End: 09-06-2022 Dr. Jayme Yang Work Phone: [facility] Start: 08-13-2022 End: 08-13-[address] Jayme Yang [facility] Start: 08-13-2022 End: 08-13-2022 Dr. Jayme Yang Work Phone: [facility] Start: 08-08-2022 End: 08-08-[address] Jayme Yang Work Phone: [facility] Work Phone: Start: 08-08-2022 End: 08-08-[address] Jayme Yang [facility] Phone: [facility] Start: 08-08-2022 End: 08-08-2022 Dr. Jayme Yang Work Phone: [facility] Start: 07-17-2022 End: 07-17-[address] Jayme Yang Work Phone: [facility] Work Phone: Start: 07-17-2022 End: 07-17-[address] Jayme Yang Work Phone: [facility]-Laboratory Start: 06-22-2022 Non-patient / Non-visit Dr. Adry Yang Work Phone: [facility] Start: 06-21-2022 End: 06-21-[address] Jayme Yang Work Phone: [facility] Work Phone: Start: 06-21-2022 End: 06-21-[address] Jayme Yang Work Phone: [facility]-Pulmonary Services/Neurology Start: 04-24-2022 End: 04-24-[address] Jayme Yang Work Phone: [facility] Start: 04-12-2022 End: 04-12-[address] Jayme Yang Work Phone: [facility] Start: 03-28-2022 End: 03-28-[address] Jayme Yang Work Phone: [facility] Start: 02-13-2022 End: 02-13-[address] Jayme Yang Work Phone: [facility]-Pulmonary Medicine [facility] Start: 01-26-2022 End: 01-26-[address] Jayme Yang Work Phone: [facility] Start: 01-11-2022 End: 01-11-[address] Jayme Yang Work Phone: [facility]-Laboratory Start: 01-09-2022 End: 01-09-[address] Jayme Yang Work Phone: [facility]-Pre-Admission Testing Start: 12-23-2021 Non-patient / Non-visit Dr. Adry Yang Work Phone: [facility] Inpatient Physicians Start: 12-22-2021 Non-patient / Non-visit Dr. Adry Yang Work Phone: [facility] Phys[facility] Start: 12-22-2021 Non-patient / Non-visit Dr. Adry Yang Work Phone: [facility] Start: 12-21-2021 Non-patient / Non-visit Dr. Adry Yang Work Phone: [facility]patient Phys[facility] Start: 12-21-2021 End: 12-23-2021 Evaluation and management of inpatient Dr. Jayme Yang Work Phone: [facility]-Progressive Care Unit Start: 12-13-2021 End: 12-13-[address] Jayme Yang Work Phone: [facility] Start: 11-22-2021 Non-patient / Non-visit Dr. Adry Yang Work Phone: [facility] Start: 11-22-2021 End: 11-22-[address] Jayme Yang Work Phone: [facility]-Cardiovascula r Services Start: 11-07-2021 Non-patient / Non-visit Dr. Adry Yang Work Phone: [facility] Start: 11-06-2021 End: 11-06-[address] Jayme Yang Work Phone: [facility] Start: 10-17-2021 End: 10-17-[address] Jayme Yang Work Phone: [facility] Start: 10-16-2021 End: 10-16-[address] Jayme Yang Work Phone: [facility]-Laboratory, Specimen Start: 10-13-2021 End: 10-13-[address] [facility] Start: 10-05-2021 End: 10-05-[address] Jayme Yang Work Phone: [facility] Start: 10-05-2021 Non-patient / Non-visit Dr. Adry Yang Work Phone: [facility] Start: 10-05-2021 End: 10-05-[address] Jayme Yang Work Phone: [facility] Start: 10-04-2021 Non-patient / Non-visit Dr. Adry Yang Work Phone: [facility] Start: 10-04-2021 End: 10-04-[address] Jayme Yang Work Phone: [facility]-Pulmonary Services/Neurology Start: 09-26-2021 End: 09-26-[address] Jayme Yang Work Phone: [facility]-Laboratory Start: 08-25-[address] Jayme [facility] Date Procedure Procedure Detail Performing Clinician Start: 03-04-2025 Blood count smear mc rscp w/mnl difrntl wbc count Dr. Jayme Yang MD Work Phone: Start: 03-04-2025 Mean corpuscular hem oglobin concentration determination Dr. Jayme Yang MD Work Phone: Start: 03-04-2025 Nucleated red blood cell count procedure Dr. Jayme Yang MD Work Phone: Start: 03-04-2025 Platelet mean volume determination Dr. Jayme Yang MD Work Phone: Start: 02-15-2025 X-ray of chest, PA a [...] Work Phone: Start: 10-26-2024 Blood count smear rscp w/mnl difrntl wbc count Dr. Jayme [...] Nuclear Stress Test - Chemical Dr. Jayme Yang Work Phone: Start: 10-17-2021 CT angiography of he ad and neck Dr. Jayme Yang Work Phone: Start: 02-22-2020 Antibody screen Comment on above: Performed By: #### T &S #### [place] [id number] Start: 03-22-2017 End: 03-22-2017 Dietary management education, guidance, and counseling Kaylene Chong Start: 03-22-2017 End: 03-22-2017 Follow Up Appt 6 months Teja Jefferson SCHEDULE ANNOUNCER Work Phone: Start: 03-22-2017 End: 03-22-2017 PFM Teja Jefferson SCHEDULE ANNOUNCER Work Phone: Start: 12-13-2016 End: 12-13-2016 Dietary [...] Date Care Activity Detail Author Start: 02-15-2025 [facility] Start: 02-15-2025 [facility] Start: 11-13-2023 Patient discharge [facility] Start: 11-12-2023 Oxygen therapy [facility] Start: 11-12-2023 Admission procedure [facility] Start: 11-12-2023 Admission procedure [facility] Start: 11-12-2023 Referral to cook helper dessert [facility] Start: 11-12-2023 Continuous positive airway pressure ventilation treatment [facility] Start: 11-12-2023 Inhalation therapy procedure [facility] Start: 11-11-2023 Following clinical pathway protocol [facility] Start: 11-11-2023 Notification of physician [facility] Start: 11-11-2023 [facility] Start: 11-11-2023 Admission procedure [facility] Start: 11-11-2023 Troponin I measurement [facility] Start: 11-11-2023 Hospital admission, emergency, from emergency room, medical nature [facility] Start: 11-11-2023 [facility] Start: 09-24-2023 Patient discharge [facility] Start: 09-22-2023 Admission procedure [facility] Start: 09-20-2023 Oxygen therapy [facility] Start: 09-20-2023 Continuous positive airway pressure ventilation treatment [facility] Start: 09-20-2023 Assessment of risk of venous thromboembolism [facility] Start: 09-20-2023 Care regimes management [facility] Start: 09-20-2023 Catheterization of vein [facility] Start: 09-20-2023 Insertion of catheter into peripheral vein [facility] Start: 09-20-2023 Notification of physician [facility] Start: 09-20-2023 Providing care according to standard [facility] Start: 09-20-2023 Provision of activity privileges [facility] Start: 09-20-2023 Referral to occupational therapist [facility] Start: 09-20-2023 Referral to service [facility] Start: 09-20-2023 [facility] Start: 09-20-2023 Following clinical pathway protocol [facility] Start: 09-20-2023 Respiratory pathogens DNA and RNA panel - Respiratory specimen by [facility] with probe detection [facility] Start: 09-20-2023 Verification routine [facility] Start: 09-20-2023 Admission procedure [facility] Start: 09-20-2023 Hospital admission, emergency, from emergency room, medical nature [facility] Start: 09-20-2023 Respiratory microbial culture [facility] Start: 09-20-2023 Inhalation therapy procedure [facility] Start: 09-07-2023 Blood chemistry [facility] Start: 09-06-2023 Blood chemistry [facility] Start: 09-05-2023 Patient discharge [facility] Start: 09-05-2023 Blood chemistry [facility] Start: 09-05-2023 [facility] Start: 09-04-2023 Verification routine [facility] Start: 09-04-2023 Care regimes management [facility] Start: 09-04-2023 Notification of physician [facility] Start: 09-04-2023 End: 09-04-2023 [facility] Start: 09-04-2023 Following clinical pathway protocol [facility] Start: 09-04-2023 Admission procedure [facility] Start: 09-04-2023 Inhalation therapy procedure [facility] Start: 09-04-2023 [facility] Start: 08-07-2023 Anes integ extremities ant trunk & perineum nos [facility] Start: 08-07-2023 Plmt interstitial dev radiat tx prostate 1/mult [facility] Start: 08-07-2023 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 plmt biodegradable matrl 1/lawn mower repairer njx [facility] Start: 08-07-2023 Patient discharge [facility] Start: 08-07-2023 Ambulation without limitation [facility] Start: 08-07-2023 Medical regimen orders management [facility] Start: 08-07-2023 Medication education [facility] Start: 08-07-2023 [facility] Start: 04-04-2023 Patient referral [facility] Work Phone: Start: 03-26-2023 Patient discharge [facility] Start: 03-23-2023 Care planning and problem solving actions [facility] Start: 03-23-2023 Physiotherapy of chest [facility] Start: 03-22-2023 Care regimes management [facility] Start: 03-22-2023 Notification of physician [facility] Start: 03-22-2023 [facility] Start: 03-22-2023 Following clinical pathway protocol [facility] Start: 03-21-2023 Following clinical pathway protocol [facility] Start: 03-21-2023 Assessment of risk of venous thromboembolism [facility] Start: 03-21-2023 Elevation of head of bed [facility] Start: 03-21-2023 Inhalation therapy procedure [facility] Start: 03-21-2023 Insertion of catheter into peripheral vein [facility] Start: 03-21-2023 Methicillin resistant Staphylococcus aureus screening test [facility] Start: 03-21-2023 Oxygen therapy [facility] Start: 03-21-2023 Patient education [facility] Start: 03-21-2023 Providing care according to standard [facility] Start: 03-21-2023 Provision of activity privileges [facility] Start: 03-21-2023 Referral to service [facility] Start: 03-21-2023 [facility] Start: 03-21-2023 [facility] Start: 03-21-2023 Admission procedure [facility] Start: 03-21-2023 Respiratory microbial culture Respiratory Culture [facility] Start: 10-05-2022 Patient discharge [facility] Start: 10-05-2022 Blood chemistry [facility] Work Phone: Start: 10-05-2022 [facility] Work Phone: Start: 10-04-2022 Assessment of risk of venous thromboembolism [facility] Start: 10-04-2022 Care regimes management [facility] Start: 10-04-2022 Catheterization of vein [facility] Start: 10-04-2022 Incentive spirometry [facility] Start: 10-04-2022 Insertion of catheter into peripheral vein [facility] Start: 10-04-2022 Oxygen therapy [facility] Work Phone: Start: 10-04-2022 Providing care according to standard [facility] Start: 10-04-2022 Referral to occupational therapist [facility] Start: 10-04-2022 Referral to service [facility] Start: 10-04-2022 [facility] Start: 10-04-2022 Oxygen therapy [facility] Start: 10-04-2022 Following clinical pathway protocol [facility] Start: 10-04-2022 Continuous positive airway pressure ventilation treatment [facility] Work Phone: Start: 10-04-2022 Verification routine [facility] Work Phone: Start: 10-04-2022 Admission procedure [facility] Start: 10-04-2022 Patient referral to dietitian [facility] Start: 10-02-2022 Arthrocentesis aspir&/inj major jt/bursa w/o us [facility] Start: 10-02-2022 Following clinical pathway protocol [facility] Start: 10-02-2022 [facility] Start: 12-23-2021 Patient discharge [facility] Work Phone: Start: 12-22-2021 End: 12-22-2021 Notification of physician [facility] Work Phone: Start: 12-22-2021 End: 12-22-2021 Patient education [facility] Work Phone: Start: 12-22-2021 End: 12-22-2021 Pulse taking [facility] Work Phone: Start: 12-22-2021 End: 12-22-2021 Taking patient vital signs [facility] Work Phone: Start: 12-22-2021 End: 12-22-2021 Wound care [facility] Work Phone: Start: 12-22-2021 End: 12-22-2021 [facility] Work Phone: Start: 12-21-2021 Referral to cook helper dessert [facility] Work Phone: Start: 12-21-2021 Assessment of risk of venous thromboembolism [facility] Work Phone: Start: 12-21-2021 Insertion of catheter into peripheral vein [facility] Work Phone: Start: 12-21-2021 Measuring intake and output [facility] Work Phone: Start: 12-21-2021 Oxygen therapy [facility] Work Phone: Start: 12-21-2021 Providing care according to standard [facility] Work Phone: Start: 12-21-2021 Provision of activity privileges [facility] Work Phone: Start: 12-21-2021 Referral to occupational therapist [facility] Work Phone: Start: 12-21-2021 Referral to service [facility] Work Phone: Start: 12-21-2021 [facility] Work Phone: Start: 12-21-2021 Following clinical pathway protocol [facility] Work Phone: Start: 12-21-2021 Admission procedure [facility] Work Phone: Start: 10-13-2021 Chemotherapy admn iv infusion tq ea hr CHEMO IV INFUSION ADDL HR [facility] Work Phone: Start: 10-13-2021 Chemotx admn iv nfs tq up 1 hr 09/30 sbst/drug CHEMO IV INFUSION 1 HR [facility] Work Phone: Start: 11-04-2017 End: 11-04-2017 Appointment [facility] Work Phone: Start: 03-22-2017 End: 03-22-2017 Appointment Appointment [facility] Work Phone: Start: 03-22-2017 End: 03-22-2017 Appointment Appointment [facility] Work Phone: Start: 03-22-2017 End: 03-22-2017 Follow Up Appt 6 months Follow Up Appt 6 months [facility] Work Phone: Start: 03-22-2017 End: 03-22-2017 PFM PFM [facility] Work Phone: Start: 12-13-2016 End: 02-07-2017 *BMP *BMP [facility] Work Phone: Start: 12-13-2016 End: 02-07-2017 CBC W Auto Differential panel - Blood *CBC without Diff [facility] Work Phone: Start: 12-13-2016 End: 12-13-2016 Electrocardiogram, complete EKG (In office) [facility] Work Phone: Start: 12-13-2016 End: 12-13-2016 Follow Up Appt 3 months Follow Up Appt 3 months [facility] Work Phone: Start: 12-13-2016 End: 12-13-2016 MMM MMM [facility] Work Phone: Start: 12-13-2016 End: 12-13-2016 Remote 30 day ecg rev/report 30 Day Holter Monitor [facility] Work Phone: Start: 12-13-2016 End: 12-13-2016 Tilt table evaluation Tilt Table Test [facility] Work Phone: Anaerobic Culture Anaerobic Culture [facility] Work Phone: Anaerobic microbial culture Anaerobic Cul ture [facility] Work Phone: Anion gap measurement [facility] Work Phone: Anion gap measurement [facility] Anion gap measurement [facility] Anion gap measurement [facility] Bacteria identified in Body fluid by Culture [facility] Work Phone: Bacteria identified in Unspecified specimen by Anaerobe culture [facility] Work Phone: Bacterial culture Body Fluid Culture [facility] Work Phone: Body Fluid Culture Body Fluid Culture [facility] Work Phone: BUN/Creatinine ratio [facility] Work Phone: BUN/Creatinine ratio [facility] BUN/Creatinine ratio [facility] BUN/Creatinine ratio [facility] Calcium [Mass/volume ] in Serum or Plasma [facility] Work Phone: Calcium [Mass/volume ] in Serum or Plasma [facility] Calcium [Mass/volume ] in Serum or Plasma [facility] Calcium [Mass/volume ] in Serum or Plasma [facility] Carbon dioxide, tota l [Moles/volume] in Serum or Plasma [facility] Work Phone: Carbon dioxide, tota l [Moles/volume] in Serum or Plasma [facility] Carbon dioxide, tota l [Moles/volume] in Serum or Plasma [facility] Carbon dioxide, tota l [Moles/volume] in Serum or Plasma [facility] Chloride [Moles/volu me] in Serum or Plasma [facility] Work Phone: Chloride [Moles/volu me] in Serum or Plasma [facility] Chloride [Moles/volu me] in Serum or Plasma [facility] Chloride [Moles/volu me] in Serum or Plasma [facility] Creatinine [Moles/vo lume] in Serum or Plasma [facility] Work Phone: Creatinine [Moles/vo lume] in Serum or Plasma [facility] Creatinine [Moles/vo lume] in Serum or Plasma [facility] Creatinine [Moles/vo lume] in Serum or Plasma [facility] Glucose [Mass/volume ] in Serum or Plasma [facility] Work Phone: Glucose [Mass/volume ] in Serum or Plasma [facility] Glucose [Mass/volume ] in Serum or Plasma [facility] Glucose [Mass/volume ] in Serum or Plasma [facility] Hematocrit [Volume Fraction] of Blood [facility] Work Phone: Hematocrit [Volume Fraction] of Blood [facility] Hematocrit [Volume Fraction] of Blood [facility] Hematocrit [Volume Fraction] of Blood [facility] Hemoglobin [Mass/vol ume] in Blood [facility] Work Phone: Hemoglobin [Mass/vol ume] in Blood [facility] Hemoglobin [Mass/vol ume] in Blood [facility] Hemoglobin [Mass/vol ume] in Blood [facility] Hemoglobin A1c/Hemoglobin.total in Blood [facility] Investigation of transfusion reaction Gram Stain [facility] Work Phone: Leukocytes [#/volume ] in Blood [facility] Work Phone: Leukocytes [#/volume ] in Blood [facility] Leukocytes [#/volume ] in Blood [facility] Leukocytes [#/volume ] in Blood [facility] Magnesium [Mass/volu me] in Serum or Plasma [facility] Work Phone: Magnesium [Mass/volu me] in Serum or Plasma [facility] Mean corpuscular hem oglobin concentration determination [facility] Work Phone: Mean corpuscular hem oglobin concentration determination [facility] Mean corpuscular hem oglobin concentration determination [facility] Mean corpuscular hem oglobin concentration determination [facility] Mean corpuscular hem oglobin determination [facility] Work Phone: Mean corpuscular hem oglobin determination [facility] Mean corpuscular hem oglobin determination [facility] Mean corpuscular hem oglobin determination [facility] Measurement of renal function [facility] Work Phone: Measurement of renal function [facility] Measurement of renal function [facility] Measurement of renal function [facility] Neutrophil count [facility] Work Phone: Neutrophil count [facility] Neutrophil count [facility] Neutrophil count [facility] Neutrophil percent differential count [facility] Work Phone: Neutrophil percent differential count [facility] Neutrophil percent differential count [facility] Neutrophil percent differential count [facility] Patient Education [facility] Work Phone: Patient referral [facility] Work Phone: Platelets [#/volume] in Blood [facility] Work Phone: Platelets [#/volume] in Blood [facility] Platelets [#/volume] in Blood [facility] Platelets [#/volume] in Blood [facility] Potassium [Moles/vol ume] in Serum or Plasma [facility] Work Phone: Potassium [Moles/vol ume] in Serum or Plasma [facility] Potassium [Moles/vol ume] in Serum or Plasma [facility] Potassium [Moles/vol ume] in Serum or Plasma [facility] Prostate specific an tigen measurement [facility] Red blood cell count [facility] Work Phone: Red blood cell count [facility] Red blood cell count [facility] Red blood cell count [facility] Red cell distributio n width determination [facility] Work Phone: Red cell distributio n width determination [facility] Red cell distributio n width determination [facility] Red cell distributio n width determination [facility] Respiratory microbia l culture Respiratory Culture [facility] Sodium [Moles/volume ] in Serum or Plasma [facility] Work Phone: Sodium [Moles/volume ] in Serum or Plasma [facility] Sodium [Moles/volume ] in Serum or Plasma [facility] Sodium [Moles/volume ] in Serum or Plasma [facility] Urea nitrogen [Mass/ volume] in Serum or Plasma [facility] Work Phone: Urea nitrogen [Mass/ volume] in Serum or Plasma [facility] Urea nitrogen [Mass/ volume] in Serum or Plasma [facility] Urea nitrogen [Mass/ volume] in Serum or Plasma [facility] Immunizations Immunization Date Immunization Notes Care Provider [facility] 08-20-2023 influenza, injectabl e, quadrivalent, preservative free Dr. Jayme Yang Work Phone: [facility] 09-17-2022 tetanus toxoid, redu rhiannon diphtheria toxoid, and acellular pertussis vaccine, adsorbed Dr. Jayme Yang Work Phone: [facility] 09-03-[address] Jayme Yang Work Phone: [facility] 08-07-2022 Covid Moderna Bivale nt Booster Dr. Jayme Yang Work Phone: [facility] 07-27-2022 influenza, injectabl e, quadrivalent, preservative free Dr. Jayme Yang Work Phone: [facility] 07-27-2022 influenza, seasonal, injectable Dr. Jayme Yang Work Phone: [facility] 06-21-[address] Jayme Yang Work Phone: [facility] 12-29-2021 Covmckenzie (Pfizer) Dr. Jayme Vasques sen Work Phone: [facility] 09-20-2021 Covid (Moderna) Dr. Jayme jolley Work Phone: [facility] 08-09-2021 influenza, injectabl e, quadrivalent, preservative free Dr. Jayme Yang Work Phone: [facility] 01-13-2021 Covid (Moderna) Dr. Jayme jolley Work Phone: [facility] 12-16-2020 Covid (Moderna) Dr. Jayme jolley Work Phone: [facility] 07-30-[address] Jayme Yang Work Phone: [facility] 07-29-2018 influenza, injectabl e, quadrivalent, preservative free Dr. Jayme Yang Work Phone: [facility] 07-19-[address] Jayme Yang Work Phone: [facility] 07-30-2017 Seasonal, quadrivale nt, recombinant, injectable influenza vaccine, preservative free Dr. Jayme Yang Work Phone: [facility] 06-30-[address] Jayme Yang Work Phone: [facility] 09-10-2016 pneumococcal conjuga te vaccine, [address] Jayme Yang Work Phone: [facility] 09-08-2015 pneumococcal polysaccharide vaccine, [address] Jayme Yang Work Phone: [facility] 08-12-2013 influenza, injectabl e, quadrivalent, preservative free Dr. Jayme Yang Work Phone: [facility] 09-14-2009 novel influenza-H1N1 -09, preservative-free, injectable Dr. Jayme Yang Work Phone: [facility] Payers Date Payer Category Payer Unknown [id number] 2024 Unknown [id number] 2023 Private Health Insurance 101 [id number] 2023 Self-pay [id number] 2016 Unknown [id number] 2005 Medicare [id number] Unknown [id number] Unknown [id number] Unknown [id number] 2.16.8 40.1.588891.3.579.2.462 Unknown [id number] 2.16.8 40.1.844872.3.579.2.462 Unknown [id number] 2.16.8 40.1.866933.3.579.2.462 Unknown [id number] 2.16.8 40.1.408953.3.579.2.462 Unknown [id number] 2.16.8 40.1.870788.3.579.2.462 Unknown [id number] 2.16.8 40.1.054208.3.579.2.462 Unknown [id number] 2.16.8 40.1.163662.3.579.2.462 Unknown [id number] 2.16.8 40.1.479548.3.579.2.462 Unknown [id number] 2.16.8 40.1.351112.3.579.2.462 Unknown [id number] 2.16.8 40.1.326648.3.579.2.462 Unknown [id number] 2.16.8 40.1.451740.3.579.2.462 Unknown [id number] 2.16.8 40.1.117399.3.579.2.462 Unknown [id number] 2.16.8 40.1.270624.3.579.2.462 Unknown [id number] 2.16.8 40.1.375142.3.579.2.462 Unknown [id number] 2.16.8 40.1.463591.3.579.2.462 Unknown [id number] 2.16.8 40.1.548616.3.579.2.462 Unknown [id number] 2.16.8 40.1.705647.3.579.2.462 Unknown [id number] 2.16.8 40.1.664710.3.579.2.462 Unknown [id number] 2.16.8 40.1.604896.3.579.2.462 Unknown [id number] 2.16.8 40.1.012494.3.579.2.462 Unknown [id number] 2.16.8 40.1.313504.3.579.2.462 Unknown [id number] 2.16.8 40.1.568975.3.579.2.462 Unknown [id number] 2.16.8 40.1.570980.3.579.2.462 Unknown [id number] 2.16.8 40.1.179095.3.579.2.462 Unknown [id number] 2.16.8 40.1.670972.3.579.2.462 Unknown [id number] 2.16.8 40.1.043365.3.579.2.462 Unknown [id number] 2.16.8 40.1.703674.3.579.2.462 Social History Date Type Detail Facility Start: 12-21-2021 End: 09-20-2023 Tobacco smoking status AKIS Unknown if ever smoked [facility] Start: 06-23-2020 None [facility] Start: 06-23-2020 Alone [facility] Start: 03-24-2020 Cigarettes [facility] Start: 1945 Sex Assigned At Male W [facility] Start: 05-27-2024 End: 02-15-2025 Tobacco smoking status NHIS Ex-smoker (finding) [facility] Start: 12-21-2024 End: 01-11-2025 Sex Male (finding) [facility] Medical Equipment Procedure Code Equipment Code [...] MARKERS, FIDUCIA L GOLD FDA Start: 08-07-2023 [id number] FDA Start: 08-07-2023 STENT,URETERAL 6 FR PIG [...] Assessment Result Facility 11-13-2023 Functional status Ambulates [facility] Work Phone: 09-24-2023 Functional status Up ad dong [facility] Work Phone: 09-05-2023 Functional status Ambulates;Stand with Ur inal [facility] Work Phone: 09-04-2023 Functional status Assist with Urinal Woos [facility] Work Phone: 03-26-2023 Functional status Chair mode [facility] Work Phone: 10-05-2022 Functional status Chair [facility] Work Phone: 12-23-2021 Functional status Ambulates;Chair [facility] Work Phone: Mental Status Date Assessment Result Facility 11-13-2023 Cognitive function Voice/Name [facility] Work Phone: 11-11-2023 Cognitive function Voice/Name [facility] Work Phone: 09-24-2023 Cognitive function Voice/Name [facility] Work Phone: 09-05-2023 Cognitive function Anxious;Uncoo perative;Guarded; Suspicious [facility] Work Phone: 09-04-2023 Cognitive function Anxious;Uncoo perative;Guarded; Suspicious;Resistive to Care [facility] Work Phone: 08-07-2023 Cognitive function Voice/Name [facility] Work Phone: 03-25-2023 Cognitive function Voice/Name [facility] Work Phone: 10-05-2022 Cognitive function Appropriate;Cooperativ e [facility] Work Phone: 10-04-2022 Cognitive function Level Of Cons ciousness Awake;Alert;Appropriate;Follow s Commands [facility] Work Phone: 12-23-2021 Cognitive function Voice/Name [facility] Work Phone: 10-13-2021 Cognitive function Awake;Alert;A ppropriate;Follow s Commands [facility] Work Phone: 08-25-2021 Cognitive function Level Of Cons ciousness Awake;Alert;Appropriate;Follow s Commands [facility] Work Phone: Clinical Notes 10-02-2022 to 02-15-2025 Note Date & Type Note Facility 02-15-2025 Radiology Diagnostic study note [facility] 02-15-2025 Discharge summary Note Date/Time February 15, 2025 7:08p m [facility] Medical Records Department [address] [place] [address] Emergency Department Summary 02/15/25 MR#: [id number] Acct: [id number] Name: MEGAN GIMENEZ Rep #:[id number] 39 : [...] with intermediate recurrence risk (stage T2b-c or [place] 7 or PSA 10-20) Heart failure Prostate cancer Sinus drainage HTN (hypertension) Pneumonia Hypokalemia Gout flare Inability to walk Arthralgia of right knee Arthralgia of foot, left Anticoagulant long-term use Effusion, right knee Effusion, left knee Rib pain White coat syndrome without diagnosis of hypertension Fatigue Nonrheumatic aortic (valve) stenosis Atherosclerotic heart disease of [place] coronary artery without angina pectoris Closed head [...] drops 1 drp LEFT EYE DAILY [facility] 10/04/22 03/20/23 History infliximab 100 mg intravenous [...] nontender. Moving all 4 extremities. Bilateral 5/5 fancy sewer strength. Dorsi plantarflexion intact. Calves are nontender [...] % (Auto) 65.0 Lymph % (Auto) 22.7 Chaves % (Auto) 10.9 H Eos % (Auto) [...] of an acute cardiopulmonary abnormality. Reading Location: [facility] Chest x-ray, 2 views, AP and [...] of 91. First-degree AV block with a TX interval of 210. Discharge Plan Triage Chief [...] chest x-ray look good today. Print Language: Syrian Disposition Disposition: Home, Self Care What to do if you have Problems For any increased pain, shortness of breath, bleeding, nausea or vomiting, chestpain, or any unexpected problems, contact your Primary Care Provider. Call [facility] ([phone]) or report to the closest Emergency Room. Call 911 if necessary. 02/15/251907 <Electronically signed by Jonathan Lopez MD> Cosigner Signature (if applicable): CC: Dr. Jayme Yang MD ~ Signed [facility] Work Phone: 1(245) 442-156602-18-2025 Evaluation note* Diagnosis Onset Date Resolution Status [...] fibrillation chron ic November 27, 2024 8:21am [facility] Work Phone: 1(943) 891-526501-07-2025 Evaluation note* Diagnosis Onset Date Resolution Status [...] fibrillation chron ic November 27, 2024 8:21am [facility] Work Phone: 1(127) 271-832902-14-2024 Consult note Author Joelle Barros [facility] November 13, 2023 11:30am Note Date/Time November 13, 2023 11:30am [facility] Medical Records Department [address] [place] [id number] Counseling Note - Pharmacy 11/13/23 [id number] MR#: [id number] Acct: [id number] Name: MEGAN GIMENEZ Rep #:[id number] 15 : 1945 78 From: Joelle Barros PCP: Dr. Jayme Yang MD Status:ADM I N Y Location: [place] [address] Pharmacy [facility] Service has performed discharge medication reconciliation [...] understanding of their dischargemedications. Patient counseled by manager pharmacy, Davion. Medications at Discharge Home Medications glimepiride [...] by Joelle Barros> Date _ [facility]if applicable): Date CC: ~ Signed [facility] Work Phone: 1(513) 459-396902-14-2024 Discharge summary Author Boris Bojorquez [facility] November 13, 2023 8:39am Note Date/Time November 13, 2023 8:31am [facility] Medical Records Department [address] [place] [address] Instructions for Home/Discharge Instructions 11/13/23 0831 MR#: [id number] Acct: [id number] Name: MEGAN GIMENEZ Rep #:[id number] : [...] Admit Date/Time: 11/12/23 15:34 Attending Provider: Boris Bojoqruez Primary Care Provider: Jayme Yang Consulting Providers: Dyan Oviedo; Arnaud Watkins; Laurita White; Deng Vieira; Maxine Miguel; Ronaldo Mishra; Mumtaz Elizondo; Rico Parish; Makenna Naqvi; Suzie Ashton; Rachid Escobedo; Myrna Hendrix; Clifford Cordero; Jayme Lino; Channing Maldonado; Domenico Ordaz; Nabil Marie; Teja Jefferson SCHEDULE ANNOUNCER; Dyan Chavez SCHEDULE ANNOUNCER;Faye Martinez; Laureano Lucero; Js Lee Discharge Orders/Prescriptions [...] by Boris Bojorquez MD>Boris Bojorquez MD CC: SCHEDULE ANNOUNCERDouglas Jefferson; TERESE Chavez; Maxine Miguel MD; Dr. [...] Marie MD; Dyan Oviedo; ADRY Polanco ~ [facility] Work Phone: 1(302) 177-848202-14-2024 Progress note Author Suzie [facility] November 13, 2023 7:46am Note Date/Time November 13, 2023 7:40am [facility] Medical Records Department [address] [place] [address] Progress Note - Cardiology 11/13/23 0735 MR#: [id number] Acct: [id number] Name: MEGAN GIMENEZ Rep #:[id number] : 1945 78 From: Suzie Ashton MD PCP: Dr. Jayme Yang MD Status:ADM I N Location: [place] [address] Subjective Subjective Patient was sleeping comfortably with [...] andEliquis long-term. (5) Atherosclerotic heart disease of little shell tribe coronary artery without angina pectoris: QUALIFIERS: [place] vs. transplanted heart: little shell tribe heart QualifiedCode(s): I25.10 - Atherosclerotic heart disease of [place] coronary artery without angina pectoris PLAN: The [...] tolerating. The patient should follow-up in the [facility] office with one of the advanced practitioners in approximately 2 weeks. We will reevaluate his response to the anti-ischemic medical regimen and his blood pressure control at that time. Charges/Coding Visit Charges Inpatient E&M: 81001 Subs Hosp L2 11/13/23 0746 <Electronically signed by Suzie Ashton MD> Cosigner Signature (if applicable): CC: ~ Signed [facility] Work Phone: 1(317) 475-553602-13-2024 Progress note Author Js Lee [facility] November 12, 2023 3:36pm Note Date/Time November 12, 2023 12:18pm [facility] Medical Records Department [address] [place] [address] Progress Note - Hospitalist 11/12/23 1217 MR#: [id number] Acct: [id number] Name: MEGAN GIMENEZ Rep #:[id number] : 1945 78 From: Js valera DO PCP: Dr. Jayme Yang MD Status:ADM I NO Location: [place] [address] Reason for Visit Reason for Visit: Diagnoses Hypokalemia (11/11/23) Essential (primary) hypertension (11/11/23) Non-ST elevation (NSTEMI) myocardial infarction (11/11/23) Unspecified atrial fibrillation (11/11/23) MCFP (current) use of anticoagulants (11/11/23) Other specified [...] % (Auto) 52.3, Lymph % (Auto) 32.6, Chaves % (Auto) 11.6 H, Eos % (Auto) [...] is a 78-year-old male who presented to [facility] ED on 11/11/2023 with chest pain. [...] 35 minutes. Charges/Coding Visit Charges Inpatient E&M: 74589 Subs Hosp L2 11/12/231531 <Electronically signed by Js Lee DO> Cosigner [...] placed to change patient to inpatient status. 11/12/231535<Electronically signed by Js Lee DO> Cosigner Signature (if applicable): cc: ~* Signed [facility] Work Phone: 1(224) 261-245802-13-2024 Consult note Author Suzie Ashton [facility] November 12, 2023 8:14am Note Date/Time November 12, 2023 7:54am [facility] Medical Records Department [address] [place] [address] Consultation - Cardiology 11/12/23 0754 MR#: [id number] Acct: [id number] Name: MEGAN GIMENEZ Rep #:[id number] : 1945 78 From: Suzie Ashton MD PCP: Dr. Jayme Yang MD Status:ADM I NO Location: [place] [address] Assessment & Plan Assessment/Plan (1) NSTEMI, initial [...] out an old inferior and old anterior FL. Thepatient has a history of paroxysmal atrial [...] given situation would be fraught with complications. [facility] Medical History Abnormal stress test Acute bronchitis with bronchospasm Acute respiratory insufficiency Anticoagulant long-term use Anxiety Aortic stenosis Arthralgia of foot, left Arthralgia of right knee Arthritis Asthma Asymptomatic hypertensive urgency Atherosclerotic heart disease of little [place] coronary artery without angina pectoris Atrial fibrillation [...] 20% Risk Charges/Coding Visit Charges Inpatient E&M: 96472 Init Hosp L3 Objective Data Vital Signs: [...] % (Auto) 52.3, Lymph % (Auto) 32.6, Chaves % (Auto) 11.6 H, Eos % (Auto) [...] % (Auto) 52.3, Lymph % (Auto) 32.6, Chaves % (Auto) 11.6 H, Eos % (Auto) [...] Graham Alfaro MD at 21:01 EST , 11/12/2314 <Electronically signed by Suzie Ashton MD> Cosigner Signature (if applicable): CC: TERESE Jefferson; SCHEDULE ANNOUNCER-C Dyan Chavez; Maxine Miguel MD; Dr. Arnaud Watkins [...] Nabil Marie MD; Dyan Oviedo; ADRY [place]~ [facility] Work Phone: 1([phone]) 679-872602-13-2024 History and physical note Author Laureano [facility] November 12, 2023 6:45am Note Date/Time November 11, 2023 10:32pm [facility] Medical Records Department [address] [place] [address] H&P Exam - Hospitalist 11/11/234 MR#: [id number] Acct: [id number] Name: MEGAN GIMENEZ Rep #:[id number] : 1945 78 From: Laureano Hampton DO PCP: Dr. Jayme Yang MD Status:ADM I NO Location: [place] [id number]- 1 HPI - General General Date of Admission: [...] on December 22, 2021 who presents to [facility] ER complaining of chest pain. Mr. [...] expected to be greater than 48 hours. [facility] Medical History (Updated 11/12/23 @ 03:[address] Laureano Lucero, DO) Abnormal stress test Acute bronchitis with bronchospasm Acute respiratory insufficiency Anticoagulant long-term use Anxiety Aortic stenosis Arthralgia of foot, left Arthralgia of right knee Arthritis Asthma Asymptomatic hypertensive urgency Atherosclerotic heart disease of little [place] tribe coronary artery without angina pectoris Atrial fibrillation with RVR Back pain BiPAP (biphasic positive airway pressure) dependence Bronchitis Cancer of prostate with intermediate recurrence risk (stage T2b-c or [place] 7 or PSA 10-20) Cardiology follow-up encounter [...] % (Auto) 52.3, Lymph % (Auto) 32.6, Chaves % (Auto) 11.6 H, Eos % (Auto) [...] mouth swelling. Finally, we will consult the cook helper dessert on-call to see this patient on-rounds in the AM for further recommendations regarding [facility] this admission with help appreciated in advance. [...] 55 minutes. Charges/Coding Visit Charges Inpatient E&M: 43128 Init Hosp L2 11/12/23 0645 <Electronically signed by Laureano Lucero DO> Cosigner Signature (if applicable): CC: Dr. Laureano Lucero DO; Dr. Jayme Yang MD~ Signed [facility] Work Phone: 1(258) 177-627902-13-2024 Discharge summary Author Ana Maria Barnhart [facility] November 11, 2023 10:11pm Note Date/Time November 11, 2023 8:15pm [facility] Medical Records Department [address] [place] [address] Emergency Department Summary 11/11/23 MR#: [id number] Acct: [id number] Name: MEGAN GIMENEZ Rep #:[id number] : [...] diabetes high blood pressure and high cholesterol. [facility] Medical History (Updated 11/11/23 @ 22:[address] Ana Maria Barnhart MD) Abnormal stress test Acute bronchitis with bronchospasm Acute respiratory insufficiency Anticoagulant long-term use Anxiety Aortic stenosis Arthralgia of foot, left Arthralgia of right knee Arthritis Asthma Asymptomatic hypertensive urgency Atherosclerotic heart disease of little [place] coronary artery without angina pectoris Atrial fibrillation [...] around 70% with the mid RCA occluded, HOSPICE PHYSICIAN Conclusion and recommendation; This patient is allergic to aspirin and had significant coronary atherosclerosis We will continue medical treatment. He has a paroxysmal atrial fibrillation will resume Eliquis in addition to rest of his cardiac medication He will follow-up with his primary cook helper dessert Dr. Lino/[facility]. Patient's CBC shows minimal nonspecific anemia but [...] % (Auto) 52.3 Lymph % (Auto) 32.6 Chaves % (Auto) 11.6 H Eos % (Auto) [...] the rest of the EKG looks normal. TX interval is slightly long showing some slight first-degree AV block. QRS duration and QTc are not showing any significant abnormality. Discharge Plan Dx/Rx/DC Orders Clinical Impression: Diabetes, History of coronary artery disease, Chest pain, Dyspnea, Nausea & vomiting Disposition Disposition: Acute Care [facility] What to do if you have Problems For any increased pain, shortness of breath, bleeding, nausea or vomiting, chestpain, or any unexpected problems, contact your Primary Care Provider. Call [facility] ([phone]) or report to the closest Emergency Room. Call 911 if necessary. 11/11/232210 <Electronically signed by Ana Maria Barnhart MD> Cosigner Signature (if applicable): CC: Dr. Jayme Yang MD ~ Signed [facility] Work Phone: 1(970) 554-523502-12-2024 Discharge summary Author Ana Maria Barnhart [facility] November 11, 2023 10:11pm Note Date/Time November 11, 2023 8:15pm [facility] Medical Records Department [address] [place] [address] Emergency Department Summary 11/11/23 MR#: [id number] Acct: [id number] Name: MEGAN GIMENEZ Rep #:[id number] : 1945 78 From: Ana Maria aBrnhart MD PCP: Dr. Jayme Yang MD Status:REG [...] diabetes high blood pressure and high cholesterol. [facility] Medical History (Updated 11/11/23 @ 22:[address] Ana Maria Barnhart MD) Abnormal stress test Acute bronchitis with bronchospasm Acute respiratory insufficiency Anticoagulant long-term use Anxiety Aortic stenosis Arthralgia of foot, left Arthralgia of right knee Arthritis Asthma Asymptomatic hypertensive urgency Atherosclerotic heart disease of [place] coronary artery without angina pectoris Atrial fibrillation with RVR Back pain BiPAP (biphasic positive airway pressure) dependence Bronchitis Cancer of prostate with intermediate recurrence risk (stage T2b-c or [place] 7 or PSA 10-20) Cardiology follow-up encounter [...] around 70% with the mid RCA occluded, HOSPICE PHYSICIAN Conclusion and recommendation; This patient is allergic to aspirin and had significant coronary atherosclerosis We will continue medical treatment. He has a paroxysmal atrial fibrillation will resume Eliquis in addition to rest of his cardiac medication He will follow-up with his primary cook helper dessert Dr. Lino/[facility]. Patient's CBC shows minimal nonspecific anemia but [...] % (Auto) 52.3 Lymph % (Auto) 32.6 Chaves % (Auto) 11.6 H Eos % (Auto) [...] the rest of the EKG looks normal. TX interval is slightly long showing some slight first-degree AV block. QRS duration and QTc are not showing any significant abnormality. Discharge Plan Dx/Rx/DC Orders Clinical Impression: Diabetes, History of coronary artery disease, Chest pain, Dyspnea, Nausea & vomiting Disposition Disposition: Acute Care [facility] What to do if you have Problems For any increased pain, shortness of breath, bleeding, nausea or vomiting, chestpain, or any unexpected problems, contact your Primary Care Provider. Call [facility] ([phone]) or report to the closest Emergency Room. Call 911 if necessary. 11/11/232210 <Electronically signed by Ana Maria Barnhart MD> Cosigner Signature (if applicable): CC: Dr. Jayme Yang MD ~ Signed [facility] Work Phone: 1(381) 300-189612-26-2023 Discharge summary Author Boris Bojorquez [facility] September 24, 2023 8:39am Note Date/Time September 24, 2023 8:36am [facility] Medical Records Department [address] [place] [address] Instructions for Home/Discharge Instructions 09/24/23 0835 MR#: [id number] Acct: [id number] Name: MEGAN GIMENEZ Rep #:[id number] : [...] Bojorquez MD>Boris Bojorquez MD CC: Dr. Drake Mason DO; Dr. Jayme Yang MD ~ Signed [facility] Work Phone: 1([phone]) 316-829212-25-2023 Progress note Author Boris Bojorquez [facility] September 23, 2023 8:35am Note Date/Time September 23, 2023 8:35am [facility] Medical Records Department [address] [place] [address] Progress Note - Hospitalist 09/23/23 0833 MR#: [id number] Acct: [id number] Name: MEGAN GIMENEZ Rep #:[id number] : 1945 78 From: Boris matos MD PCP: Dr. Jayme Yang MD Status:ADM I N Location: [place] [address] Subjective Subjective Maintaining his oxygen 5 L, [...] DVT: Eliquis Charges/Coding Visit Charges Inpatient E&M: 03483 Subs Hosp L2 09/23/23 4457 <Electronically signed by Boris Bojorquez MD> Cosigner Signature (if applicable): CC: ~ Signed [facility] Work Phone: 1(876) 304-679412-24-2023 Progress note Author Boris Bojorquez [facility] September 22, 2023 8:44am Note Date/Time September 22, 2023 8:44am [facility] Medical Records Department [address] [place] [address] Progress Note - Hospitalist 09/22/23 0839 MR#: [id number] Acct: [id number] Name: MEGAN GIMENEZ Rep #:[id number] : 1945 78 From: Boris matos MD PCP: Dr. Jayme Yang MD Status:ADM I NO Location: [place] [address] Subjective Subjective Need increased oxygen overnight, repeat [...] Neut % (Auto) 58.2, Lymph % (Auto) 25.0,Chaves % (Auto) 12.9 H, Eos % (Auto) [...] DVT: Eliquis Charges/Coding Visit Charges Inpatient E&M: 16697 Subs Hosp L2 09/22/23 0844 <Electronically signed by Boris Bojorquez MD> Cosigner Signature (if applicable): CC: ~ Signed [facility] Work Phone: 1(309) 991-614212-23-2023 Progress note Author Boris Bojorquez [facility] September 21, 2023 9:34am Note Date/Time September 21, 2023 9:31am [facility] Medical Records Department [address] [place], [place] [address] [address] Progress Note - Hospitalist 09/21/23926 MR#: [id number] Acct: [id number] Name: MEGAN GIMENEZ Rep #:[id number] : 1945 78 From: Boris matos MD PCP: Dr. Jayme Yang MD Status:ADM I NO Location: [place]3 JC282-8 Subjective Subjective Doing well, breathing a bit [...] Neut % (Auto) 58.3, Lymph % (Auto) 25.6,Chaves % (Auto) 13.3 H, Eos % (Auto) [...] DVT: Eliquis Charges/Coding Visit Charges Inpatient E&M: 48504 Subs Hosp L2 09/21/23 0934 <Electronically signed by Boris Bojorquez MD> Cosigner Signature (if applicable): CC: ~ Signed [facility] Work Phone: 1([phone]) 719-336412-22-2023 History and physical note Author Drake Mason [facility] September 20, 2023 5:36pm Note Date/Time September 20, 2023 5:36pm [facility] Medical Records Department [address] [place] [address] H&P Exam - Hospitalist 09/20/23 172 MR#: [id number] Acct: [id number] Name: MEGAN GIMENEZ Rep #:[id number] : 1945 78 From: Drake Mason DO PCP: Dr. Jayme Yang MD Status:ADM I NO Location: [place] PG535-8 HPI - General General Date of Admission: 09/20/23 Date of Service: 09/20/23 Chief Complaint: Cough, generalized weakness HPI Narrative MEGAN GIMENEZ, is a 78 M who presents to the emergency room at [facility], he states he has been very [...] he will be admitted to [place] [address] for community-acquired pneumonia and generalized weakness, he will be seen by PT and OT, he will be placed on Levaquin for the pneumonia. [facility] Medical History (Updated 09/20/23 @ 16:08 by Khalida Jones) Abnormal stress test Acute bronchitis with bronchospasm Acute respiratory insufficiency Ambulates with cane Anxiety Aortic stenosis Arthritis Asthma Asymptomatic hypertensive urgency Atherosclerotic heart disease of [place] coronary artery without angina pectoris Atrial fibrillation with RVR Back pain BiPAP (biphasic positive airway pressure) dependence Bronchitis CAD in [place] artery Cancer Cardiology follow-up encounter Chronic anticoagulation [...] 55 minutes Charges/Coding Visit Charges Inpatient E&M: 34859 Init Hosp L2 09/20/23 5980 <Electronically signed by Drake Mason DO> Cosigner Signature (if applicable): CC: Dr. Drake Mason DO; Dr. Jayme Yang MD~ Signed [facility] Work Phone: 1(683) 201-320812-22-2023 Discharge summary Author Jonathan Lopez [facility] September 20, 2023 3:28pm Note Date/Time September 20, 2023 1:23pm [facility] Medical Records Department [address] [place] [address] Emergency Department Summary 09/20/23 MR#: [id number] Acct: [id number] Name: MEGAN GIMENEZ Rep #:[id number] : 1945 78 From: Jonathan Lopez MD PCP: Dr. Jayme Yang MD Status:ADM I NO Location: [facility] AE785-9 HPI HPI - URI History of Present [...] Asymptomatic hypertensive urgency Atherosclerotic heart disease of [place] coronary artery without angina pectoris Atrial fibrillation with RVR Back pain Bronchitis CAD in [place] artery Cancer Cardiology follow-up encounter Chronic anticoagulation [...] QHS diabetes 01/22/18 [History Last Taken 03/21/23] jqiagcwk-pf-ejqii 300 mcg-K 60 mcg-lycop 600 mcg-lutein 300 [...] your Primary Care Provider. Call [facility] ([phone]) or report to the closest Emergency Room. Call 911 if necessary. 09/20/23 1528 <Electronically signed by Jonathan Lopez MD> Cosigner Signature (if applicable): CC: Dr. Jayme Yang MD ~ Signed [facility] Work Phone: 1(861) 385-526712-22-2023 Discharge summary Author Jonathan Lopez [facility] September 20, 2023 3:28pm Note Date/Time September 20, 2023 1:23pm [facility] Medical Records Department [address] [place] [address] Emergency Department Summary 09/20/23 MR#: [id number] Acct: [id number] Name: MEGAN GIMENEZ Rep #:[id number] : 1945 78 From: Jonathan Lopez MD PCP: Dr. Jayme Yang MD Status:ADM I NO Location: [place] SL774-4 HPI HPI - URI History of Present [...] Asymptomatic hypertensive urgency Atherosclerotic heart disease of [place] coronary artery without angina pectoris Atrial fibrillation with RVR Back pain Bronchitis CAD in [place] artery Cancer Cardiology follow-up encounter Chronic anticoagulation [...] QHS diabetes 01/22/18 [History Last Taken 03/21/23] qprtcbdm-ja-hdhqn 300 mcg-K 60 mcg-lycop 600 mcg-lutein 300 [...] your Primary Care Provider. Call [facility] ([phone]) or report to the closest Emergency Room. Call 911 if necessary. 09/20/23 1528 <Electronically signed by Jonathan Lopez MD> Cosigner Signature (if applicable): CC: Dr. Jayme Yang MD ~ Signed [facility] Work Phone: 1(730) 859-544712-07-2023 Discharge summary Author Laureano Lima [facility] September 05, 2023 9:48am Note Date/Time September 05, 2023 9 :43am [facility] Medical Records Department [address] [place] [address] Discharge Summary 09/05/23 0943 MR#: [id number] Acct: [id number] Name: JEWELMEGAN CAPRI Rep #:[id number] : 1945 78 From: Laureano Lima MD PCP: Dr. Jayme Yang MD Status:ADM I N [facility] Date of [facility]: 09[facility]23 Date of [...] tablet 2 mg PO QHS diabetes 01/22/18 offarnfm-wa-nrziz 300 mcg-K 60 mcg-lycop 600 mcg-lutein 300 [...] (Auto) 77.9 H, Lymph % (Auto) 16.7 L,Chaves % (Auto) 4.6, Eos % (Auto) 0.0, [...] Self Care Charges/Coding Visit Charges Inpatient E&M: 62917 Disch Hosp >30min 09/05/23 0948 <Electronically signed by Laureano Lima MD> Cosigner Signature (if applicable): CC: Dr. Laureano Lima MD; Dr. Jayme Yang MD~ Signed [facility] Work Phone: 1(170) 978-393812-07-2023 Progress note Author Laureano Lima [facility] September 05, 2023 9:43am Note Date/Time September 05, 2023 9 :43am [facility] Medical Records Department [address] [place] [address] Progress Note - Hospitalist 09/05/23 0942 MR#: [id number] Acct: [id number] Name: MEGAN GIMENEZ Rep #:[id number] : 1945 78 From: Laureano Lima MD PCP: Dr. Jayme Yang MD Status:ADM I N Location: ICU ICU10- Reason for Visit Reason for Visit: Diagnoses [...] (Auto) 77.9 H, Lymph % (Auto) 16.7 L,Chaves % (Auto) 4.6, Eos % (Auto) 0.0, [...] 40 Minutes Charges/Coding Visit Charges Inpatient E&M: 35924 Subs Hosp L2 09/05/23 0943 <Electronically signed by Laureano Lima MD> Cosigner Signature (if applicable): CC: ~ Signed [facility] Work Phone: 1(794) 944-874112-06-2023 Progress note [facility] 9:17am Note Date/Time September 04, 2023 7 :48am [facility] Medical Records Department [address] [place] [address] Progress Note - Hospitalist 09/04/23 0747 MR#: [id number] Acct: [id number] Name: MEGAN GIMENEZ Rep #:[id number] : 1945 78 From: Laureano Lima MD PCP: Dr. Jayme Yang MD Status:ADM I N Location: ICU ICU-1 Reason for Visit Reason for Visit: Diagnoses [...] % (Auto) 60.4, Lymph % (Auto) 25.6, Chaves % (Auto) 11.9 H, Eos % (Auto) [...] 18 minutes. Charges/Coding Visit Charges Inpatient E&M: 73425 Subs Hosp L3 Procedures Hospitalists Procedures: 05545 Advncd Care Plan 30 Min 09/04/23 0917 <Electronically signed by Laureano Lima MD> Cosigner Signature (if applicable): CC: ~ Signed [facility] Work Phone: 1(307) 104-620112-06-2023 History and physical note Author Laureano Jennings [facility] September 04, 2023 5:36am Note Date/Time September 04, 2023 2 :36am [facility] Medical Records Department [address] [place] [address] H&P Exam - Hospitalist 09/04/23 0158 MR#: [id number] Acct: [id number] Name: MEGAN GIMENEZY Rep #:[id number] : 1945 78 From: Laureano Hampton DO PCP: Dr. Jayme Yang MD Status:ADM I N Location: ICU ICU10-1 HPI - General General Date of Admission: 09/04/23 Date of Service: 09/04/23 Chief Complaint: SOB, cough and body aches with generalized weakness. HPI Narrative MEGAN GIMENEZ, is a 78 [...] planned for next week who presents to [facility] ER complaining of shortness of breath, [...] expected to be greater than 48 hours. [facility] Medical History (Updated 09/04/23 @ 02:[address] Laureano Lucero, ) Abnormal stress test Acute bronchitis with bronchospasm Acute respiratory insufficiency Ambulates with cane Anxiety Aortic stenosis Arthritis Asthma Asymptomatic hypertensive urgency Atherosclerotic heart disease of [place] coronary artery without angina pectoris Atrial fibrillation with RVR Back pain Bronchitis CAD in [place] artery Cancer Cardiology follow-up encounter Chronic anticoagulation [...] QHS diabetes 01/22/18 [History Last Taken 03/21/23] vffhblse-rn-wtzfc 300 mcg-K 60 mcg-lycop 600 mcg-lutein 300 [...] reviewed the patient's lab results. 09/03/23 23:35 12 23:35 Labs: Laboratory Results - last 24 hr 09/03/23 23:35: WBC 5.3, RBC 4.25 L, Hgb 12.9 L, Hct 39.1 L, MCV 92.0, MCH 30.4,MCHC 33.0, RDW Std Deviation 50.4 H, RDW Coeff of Azeem 14.8 H, Plt Count 191, MPV11.1, Immature Gran % (Auto) 1.700 H, Neut % (Auto) 60.4, Lymph % (Auto) 25.6, Chaves % (Auto) 11.9 H, Eos % (Auto) [...] 75 minutes. Charges/Coding Visit Charges Inpatient E&M: 52975 Init Hosp L3 09/04/23 0536 <Electronically signed by Laureano Lucero DO> Cosigner Signature (if applicable): CC: Dr. Laureano Lucero DO; Dr. Jayme Yang MD~ Signed [facility] Work Phone: 1(443) 931-956612-06-2023 History and physical note Author Laureano Jennings [facility] September 04, 2023 5:36am Note Date/Time September 04, 2023 2 :36am [facility] Medical Records Department [address] [place] [address] H&P Exam - Hospitalist 09/04/23 0158 MR#: [id number] Acct: [id number] Name: MEGAN GIMENEZ Rep #:[id number] : 1945 78 From: Laureano Hampton DO PCP: Dr. Jayme Yang MD Status:ADM I N Location: ICU ICU10-1 HPI - General General Date of Admission: 09/04/23 Date of Service: 09/04/23 Chief Complaint: SOB, cough and body aches with generalized weakness. HPI Narrative MEGAN GIMENEZ, is a 78 [...] planned for next week who presents to [facility] ER complaining of shortness of breath, [...] expected to be greater than 48 hours. [facility] Medical History (Updated 09/04/23 @ 02:[address] Laureano Lucero, ) Abnormal stress test Acute bronchitis with bronchospasm Acute respiratory insufficiency Ambulates with cane Anxiety Aortic stenosis Arthritis Asthma Asymptomatic hypertensive urgency Atherosclerotic heart disease of [place] coronary artery without angina pectoris Atrial fibrillation with RVR Back pain Bronchitis CAD in [place] artery Cancer Cardiology follow-up encounter Chronic anticoagulation [...] QHS diabetes 01/22/18 [History Last Taken 03/21/23] qmcnozvr-lk-wkdpo 300 mcg-K 60 mcg-lycop 600 mcg-lutein 300 [...] See Rx Instructions .Route .COMPLEX #45 TABLETS 11/29/23 [Rx Last Taken Unknown] potassium chloride 10 [...] % (Auto) 60.4, Lymph % (Auto) 25.6, Chaves % (Auto) 11.9 H, Eos % (Auto) [...] 75 minutes. Charges/Coding Visit Charges Inpatient E&M: 82467 Init Hosp L3 09/04/23 0536 <Electronically signed by Laureano Lucero DO> Cosigner Signature (if applicable): CC: Dr. Laureano Lucero DO; Dr. Jayme Yang MD~ Signed [facility] Work Phone: 1(525) 516-192912-06-2023 Discharge summary Author Mauricio Soto [facility] September 04, 2023 2:09am Note Date/Time September 04, 2023 2 :00am [facility] Medical Records Department [address] [place] [address] Emergency Department Summary 09/04/23 MR#: [id number] Acct: [id number] Name: MEGAN GIMENEZ Rep #:[id number] : 1945 78 From: Mauricio Soto DO PCP: Dr. Jayme Yang MD Status:REG E R Location: ED [facility] History of Present Illness Chief Complaint: Shortness [...] he comes into the ER for evaluation. [facility] Medical History Abnormal stress test Acute bronchitis with bronchospasm Acute respiratory insufficiency Ambulates with cane Anxiety Aortic stenosis Arthritis Asthma Asymptomatic hypertensive urgency Atherosclerotic heart disease of [place] coronary artery without angina pectoris Atrial fibrillation with RVR Back pain Bronchitis CAD in [place] artery Cancer Cardiology follow-up encounter Chronic anticoagulation [...] QHS diabetes 01/22/18 [History Last Taken 03/21/23] iqmumjac-yg-lcrbf 300 mcg-K 60 mcg-lycop 600 mcg-lutein 300 [...] % (Auto) 60.4 Lymph % (Auto) 25.6 Chaves % (Auto) 11.9 H Eos % (Auto) [...] Prostate cancer Disposition Disposition: Acute Care Hospital [facility] What to do if you have Problems For any increased pain, shortness of breath, bleeding, nausea or vomiting, chestpain, or any unexpected problems, contact your Primary Care Provider. Call [facility] ([phone]) or report to the closest Emergency Room. Call 911 if necessary. 09/04/23 0209 <Electronically signed by Mauricio Soto DO> Cosigner Signature (if applicable): CC: Dr. Jayme Yang MD ~ Signed [facility] Work Phone: 1(219) 609-387011-08-2023 Discharge summary Author Surinder Larson [facility] August 07, 2023 10:19am Note Date/Time August 07, 2023 1 0:19am [facility] Medical Records Department [address] [place] [address] Instructions for Home/Discharge Instructions 08/07/23 1019 MR#: [id number] Acct: [id number] Name: MEGAN GIMENEZ Rep #:[id number] : [...] Up With: Surinder Larson MD When: Call [phone] for an appointment Test Results: Test results [...] CC: Dr. Jayme Yang MD ~ Signed [facility] Work Phone: 1(417) 979-975911-08-2023 History and physical note Author Surinder Marsha [facility] August 07, 2023 10:19am Note Date/Time August 07, 2023 1 0:19am [facility] Medical Records Department [address] [place] [address] History & Physical Exam 08/07/23 1018 MR#: [id number] Acct: [id number] Name: MEGAN GIMENEZ Rep #:[id number] : 1945 78 From: Surinder Larson MD PCP: Dr. Jayme Yang MD Status:REG S DC Location: [place] [address] HPI - General General Date of Service: 08/07/23 Chief Complaint: Prostate cancer HPI Narrative MEGAN GIMENEZ, is a 78 M who presents for placement of gold markers and spacer gel [facility] Medical History (Updated 07/30/23 @ 08:49 by Bailey Choi) Abnormal stress test Acute bronchitis with bronchospasm Acute respiratory insufficiency Ambulates with cane Anxiety Aortic stenosis Arthritis Asthma Asymptomatic hypertensive urgency Atherosclerotic heart disease of [place] coronary artery without angina pectoris Atrial fibrillation with RVR Back pain Bronchitis CAD in [place] artery Cancer Cardiology follow-up encounter Chronic anticoagulation [...] QHS diabetes 01/22/18 [History Last Taken 03/21/23] hemujbfc-qy-cjovo 300 mcg-K 60 mcg-lycop 600 mcg-lutein 300 [...] 115 H 08/07/23 1019 <Electronically signed by Surinder Larson MD> Cosigner Signature (if applicable): CC: Dr. Surinder Larson MD; Dr. Jayme Yang MD~ Signed [facility] Work Phone: 1(654) 663-127211-08-2023 Procedure [facility] 03-26-[address] Bojorquez [facility] March 26, 2023 12:00pm Note Date/Time March 26, 2023 11:4 8am [facility] Medical Records Department [address] [place] [address] Discharge Summary 03/26/23 1145 MR#: [id number] Acct: [id number] Name: MEGAN GIMENEZ Rep #:[id number] : 1945 77 From: Boris matos MD PCP: Dr. Jayme Yang MD Status:ADM I N Location: [place] [address] Providers Date of Admission: 03/21/23 Primary Care Physician: Dr. Jayme Yang MD Reason For Visit: PNEUMONIA Diagnosis Discharge Diagnosis (1) Pneumonia: Status: Acute Code(s): J18.9 - Pneumonia, unspecified organism (2) HTN (hypertension): Status: Chronic Code(s): I10 - Essential (primary) hypertension Medications at Discharge Home Medications glimepiride 2 mg tablet 2 mg PO QHS diabetes 01/22/18 fdztuabl-di-adgqq 300 mcg-K 60 mcg-lycop 600 mcg-lutein 300 [...] [facility] and will plan on 5 more [...] 76.0 H, Lymph % (Auto) 16.7 L, Chaves % (Auto) 6.8, Eos % (Auto) 0.0, [...] Self Care Charges/Coding Visit Charges Inpatient E&M: 03814 Disch Hosp >30min 03/26/23 1200 <Electronically signed by Boris Bojorquez MD> Cosigner Signature (if applicable): CC: Dr. Boris Bojorquez MD; Dr. Jayme Yang MD~ Signed [facility] Work Phone: 1([phone]) 139-392906-27-[address] Bojorquez [facility] March 26, 2023 9:31am Note Date/Time March 26, 2023 9:27 am [facility] Medical Records Department [address] [place] [address] Instructions for Home/Discharge Instructions 03/26/23 0918 MR#: [id number] Acct: [id number] Name: MEGAN GIMENEZ Rep #:[id number] : [...] Order can be placed): Home, Self Care 03/26/23 0931<Electronically signed by Brois Bojorquez MD>Boris Bojorquez MD CC: Dr. Pedro Ferreira MD; Dr. Jayme Yang MD ~ Signed [facility] Work Phone: 1(907) 175-415706-26-[address] Bojorquez [facility] March 25, 2023 12:38pm Note Date/Time March 25, 2023 12:3 8pm [facility] Medical Records Department [address] [place] [address] Progress Note - Hospitalist 03/25/23 1229 MR#: [id number] Acct: [id number] Name: MEGAN GIMENEZ Rep #:[id number] : 1945 77 From: Boris matos MD PCP: Dr. Jayme Yang MD Status:ADM I N Location: [place] [address] Subjective Subjective Still with significant productive sputum, [...] DVT: Eliquis Charges/Coding Visit Charges Inpatient E&M: 70962 Subs Hosp L2 03/25/23 1238 <Electronically signed by Boris Bojorquez MD> Cosigner Signature (if applicable): CC: ~ Signed [facility] Work Phone: 1(185) 357-875606-25-[address] Bojorquez [facility] March 24, 2023 9:49am Note Date/Time March 24, 2023 9:49 am [facility] Medical Records Department [address] [place] [address] Progress Note - Hospitalist 03/24/23 0946 MR#: [id number] Acct: [id number] Name: MEGAN GIMENEZ Rep #:[id number] : 1945 77 From: Boris matos MD PCP: Dr. Jayme Yang MD Status:ADM I N Location: [place] [id number] Subjective Subjective Doing well, had to go [...] DVT: Eliquis Charges/Coding Visit Charges Inpatient E&M: 51492 Subs Hosp L2 03/24/23 0916 <Electronically signed by Boris Bojorquez MD> Cosigner Signature (if applicable): CC: ~ Signed [facility] Work Phone: [phone]) 114-651206-24-[address] Bojorquez [facility] March 23, 2023 9:03am Note Date/Time March 23, 2023 9:03 am [facility] Medical Records Department [address] [place] [address] Progress Note - Hospitalist 03/23/23 0902 MR#: [id number] Acct: [id number] Name: MEGAN GIMENEZ Rep #:[id number] : 1945 77 From: Boris matos MD PCP: Dr. Jayme Yang MD Status:ADM I N Location: [place] [address] Subjective Subjective Doing well, breathing little bit [...] (Auto) 73.5 H, Lymph % (Auto) 17.5 L,Chaves % (Auto) 7.9, Eos % (Auto) 0.1, [...] DVT: Eliquis Charges/Coding Visit Charges Inpatient E&M: 71259 Subs Hosp L2 03/23/23 0903 <Electronically signed by Boris Bojorquez MD> Cosigner Signature (if applicable): CC: ~ Signed [facility] Work Phone: 1(593) 227-868206-23-[address] Bojorquez [facility] March 22, 2023 9:20am Note Date/Time March 22, 2023 9:14 am [facility] Medical Records Department [address] [place] [address] Progress Note - Hospitalist 03/22/23909 MR#: [id number] Acct: [id number] Name: MEGAN GIMENEZ Rep #:[id number] : 1945 77 From: Boris matos MD PCP: Dr. Jayme Yang MD Status:ADM I N Location: [place] [address] Subjective Subjective Doing little bit better, normally [...] 86.9 H, Lymph % (Auto) 8.5 L, Chaves % (Auto) 4.0, Eos % (Auto) 0.0, [...] 73.1 H, Lymph % (Auto) 17.6 L, Chaves % (Auto) 8.4, Eos % (Auto) 0.1, [...] DVT: Eliquis Charges/Coding Visit Charges Inpatient E&M: 81953 Subs Hosp L2 03/22/23 0920 <Electronically signed by Boris Bojorquez MD> Cosigner Signature (if applicable): CC: ~ Signed [facility] Work Phone: 1(249) 456-894606-23-[address] Ferreira [facility] March 22, 2023 5:27am Note Date/Time March 21, 2023 11:5 8pm [facility] Medical Records Department [address] [place] [address] Pharmacokinetic/Renal -Consult 03/21/23 0543 MR#: [id number] Acct: [id number] Name: MEGAN GIMENEZ Rep #:[id number] : 1945 77 From: Rico Stone PCP: Dr. Jayme Yang MD Status:ADM I N Y Location: [place] [address] Consult Pharmacy has been consulted to manage selected antiobiotic: Vancomycin Type of Consult: New start Suspected Infection: Pneumonia Prior Doses of Antibiotics Received/Current Regimen: Medications Vancomycin HCl 750 mg/ Sodium (Chloride) 265 mls @ 250 mls/hr IV Q12H [facility] Vancomycin HCl 2,000 mg/ (Sodium Chloride) 540 [...] [date and time ordered]: 03/23/23 @1100 03/21/23 4459 <Electronically signed by Rico wesley > Date _ Rico Stone 03/22/23 6136 <Electronically signed by Pedro butler MD> Cosigner Signature (if applicable): Date Pedro Ferreira MD CC: ~ Signed [facility] Work Phone: 1(907) 265-624906-23-[address] Sullivan [facility] March 22, 2023 12:32am Note Date/Time March 21, 2023 5:40 pm [facility] Medical Records Department [address] [place] [address] Emergency Department Summary 03/21/23 MR#: [id number] Acct: [id number] Name: MEGAN GIMENEZ Rep #:[id number] : 1945 77 From: James Rocha PCP: Dr. Jayme Yang MD Status:ADM I N Location: [place] [address] HPI History of Present Illness Chief Complaint: Shortness of Breath PFSH [facility] Medical History Abnormal stress test Acute bronchitis with bronchospasm Acute respiratory insufficiency Ambulates with cane Aortic stenosis Arthritis Asthma Asymptomatic hypertensive urgency Atherosclerotic heart disease of [place] coronary artery without angina pectoris Atrial fibrillation with RVR Back pain Bronchitis CAD in [place] artery Cardiology follow-up encounter Chronic anticoagulation Closed [...] QHS diabetes 01/22/18 [History Last Taken 03/21/23] edgpjbnb-nah-phjtz acid 300 mcg-lycopene 600 mcg-lutein 300 mcg [...] 86.9 H Lymph % (Auto) 8.5 L Chaves % (Auto) 4.0 Eos % (Auto) 0.0 [...] Discharge Plan Disposition Disposition: Acute Care Hospital [facility] Discharge Date/Time: 03/21/23 22:20 What to do if you have Problems For any increased pain, shortness of breath, bleeding, nausea or vomiting, chest pain, or any unexpected problems, contact your Primary Care Provider. Call [facility] ([phone]) or report to the closest Emergency Room. Call 911 if necessary. 03/22/2331 <Electronically signed by James Sullivan DO> Cosigner Signature (if applicable): CC: Dr. Jayme Yang MD ~ Signed [facility] Work Phone: 1([phone]) 743-632606-22-2023 History and physical note Author Dr. Ferreira [facility] March 21, 2023 9:30pm Note Date/Time March 21, 2023 8:25 pm [facility] Medical Records Department [address] [place] [address] H&P Exam - Hospitalist 03/21/232024 MR#: [id number] Acct: [id number] Name: MEGAN GIMENEZ Rep #:[id number] : 1945 77 From: Pedro Ferreira MD PCP: Dr. Jayme Yang MD Status:REG E R Location: ED HPI - General General Date of Admission: 03/21/23 Date of [...] for patient to stay at the hospital. [facility] Medical History Abnormal stress test Acute bronchitis with bronchospasm Acute respiratory insufficiency Ambulates with cane Aortic stenosis Arthritis Asthma Asymptomatic hypertensive urgency Atherosclerotic heart disease of [place] coronary artery without angina pectoris Atrial fibrillation with RVR Back pain Bronchitis CAD in [place] artery Cardiology follow-up encounter Chronic anticoagulation Closed [...] QHS diabetes 01/22/18 [History Last Taken 10/03/22] otsqqhxy-oui-kvogr acid 300 mcg-lycopene 600 mcg-lutein 300 mcg [...] 86.9 H, Lymph % (Auto) 8.5 L, Chaves % (Auto) 4.0, Eos % (Auto) 0.0, [...] A-fib continued. Charges/Coding Visit Charges Inpatient E&M: 65037 Init Hosp L3 03/21/232129 <Electronically signed by Pedro Ferreira MD> Cosigner Signature (if applicable): CC: Dr. Pedro Ferreira MD; Dr. Jayme Yang MD~ Signed [facility] Work Phone: 1(451) 213-939001-03-[address] Castro [facility] October 02, 2022 6:02pm Note Date/Time October 02, 2022 5: 05pm [facility] Medical Records Department [address] [place] [address] Consultation - Orthopedics 10/02/22 1704 MR#: [id number] Acct: [id number] Name: MEGAN GIMENEZ Rep #:[id number] : [...] or night sweats. No history of trauma [facility] Medical History Abnormal stress test Acute bronchitis with bronchospasm Acute respiratory insufficiency Ambulates with cane Aortic stenosis Arthritis Asthma Asymptomatic hypertensive urgency Atherosclerotic heart disease of [place] coronary artery without angina pectoris Atrial fibrillation with RVR Back pain Bronchitis CAD in [place] artery Cardiology follow-up encounter Chronic anticoagulation Closed [...] DAILY diabetes 01/22/18 [History Last Taken 10/01/22] nadgrojk-rko-iqydd acid 300 mcg-lycopene 600 mcg-lutein 300 mcg [...] to the lab for stat report. [facility] Office: 10/02/22 1721 [...] crutches for any pain with weightbearing. 10/02/22 1802<Electronically signed by Evin Castro MD> Cosigner Signature (if applicable): cc: Dr. Jayme Yang MD ~* Signed [facility] Work Phone: Evaluation note* Diagnosis Onset [...] test acute Aortic stenosis acute CAD in [place] artery acute Chronic anticoagulation acut e Closed head injury acute Contusion of shoulder acute Diabetes acute Myoclonic jerking acute NSVT (nonsustained ventricular tachycardia) acute Paroxysmal atrial fibrillation acute Syncope acute Asymptomatic hypertensive urgency chronic Essential hypertension [facility] Work Phone: Evaluation note* Diagnosis Onset Date Resolution Status LVH (left ventricular hypertrophy) acute Syncope and collapse acute Hyperlipidemia chronic SUPA (obstructive sleep apnea) chronic Pulmonary hypertension [facility] Syncope and collapse acute Hyperlipidemia chronic Syncope and collapse acute Hyperlipidemia chronic Contusion of shoulder resolv ed Myoclonic jerking resolved Syncope resolved [facility] Work Phone: Evaluation note* Diagnosis Onset Date Resolution Status Syncope and collapse acute Hyperlipidemia chronic Syncope and collapse acute Hyperlipidemia chronic Contusion of shoulder resolv ed Myoclonic jerking resolved Syncope resolved Atherosclerotic heart diseas e of [place] coronary artery without angina pectoris acute Fatigue acute Syncope and collapse acute Hyperlipidemia chronic Asthma chronic SUPA (obstructive sleep apnea) chronic Pulmonary hypertension [facility] Work Phone: Evaluation note* Diagnosis Onset Date Resolution Status Syncope and collapse acute Hyperlipidemia chronic Contusion of shoulder resolv ed Myoclonic jerking resolved Syncope resolved Atherosclerotic heart diseas e of [place] coronary artery without angina pectoris acute Fatigue acute Syncope and collapse acute Hyperlipidemia chronic Asthma chronic SUPA (obstructive sleep apnea) chronic Pulmonary hypertension [facility] Work Phone: Evaluation note* Diagnosis Onset Date Resolution Status Contusion of shoulder resolv ed Myoclonic jerking resolved Syncope resolved Atherosclerotic heart diseas e of [place] coronary artery without angina pectoris acute Fatigue acute Syncope and collapse acute Hyperlipidemia chronic Asthma chronic SUPA (obstructive sleep apnea) chronic Pulmonary hypertension [facility] Work Phone: Evaluation note* Diagnosis Onset Date Resolution Status Atherosclerotic heart diseas e of [place] coronary artery without angina pectoris acute Essential hypertension acute Syncope and collapse acute Hyperlipidemia [facility] Work Phone: Evaluation note* Diagnosis Onset Date Resolution Status Asthma chronic SUPA (obstructive sleep apnea) [facility] Work Phone: Evaluation note* Diagnosis Onset Date Resolution Status Asthma chronic SUPA (obstructive sleep apnea) chronic Atherosclerotic heart diseas e of [place] coronary artery without angina pectoris acute Essential hypertension acute Fatigue acute Rib pain acute Syncope and collapse acute Hyperlipidemia chronic [facility] Work Phone: Evaluation note* Diagnosis Onset Date Resolution Status Asthma chronic SUPA (obstructive sleep apnea) chronic Atherosclerotic heart diseas e of [place] coronary artery without angina pectoris acute Essential hypertension acute Fatigue acute Rib pain acute Syncope and collapse acute Hyperlipidemia chronic Anticoagulant long-term use acute Arthralgia of foot, left acu te Arthralgia of right knee acu te Failure of outpatient treatment acute Gout flare acute History of total knee arthroplasty acute Hypokalemia acute Inability to walk acute [facility] Work Phone: Evaluation note* Diagnosis Onset Date Resolution Status Asthma chronic SUPA (obstructive sleep apnea) chronic Atherosclerotic heart diseas e of [place] coronary artery without angina pectoris acute Essential hypertension acute Fatigue acute Rib pain acute Syncope and collapse acute Hyperlipidemia chronic Anticoagulant long-term use acute Arthralgia of foot, left acu te Arthralgia of right knee acu te Failure of outpatient treatment acute Gout flare acute Hypokalemia acute Inability to walk acute [facility] Work Phone: Evaluation note* Diagnosis Onset Date Resolution Status Asthma chronic SUPA (obstructive sleep apnea) chronic Atherosclerotic heart diseas e of [place] coronary artery without angina pectoris acute Essential hypertension acute Fatigue acute Rib pain acute Syncope and collapse acute Hyperlipidemia chronic Anticoagulant long-term use acute Arthralgia of foot, left acu te Arthralgia of right knee acu te Failure of outpatient treatment acute Gout flare acute Hypokalemia acute Inability to walk acute Atherosclerotic heart diseas e of [place] coronary artery without angina pectoris acute Essential hypertension acute Hyperlipidemia [facility] Work Phone: Evaluation note* Diagnosis Onset Date Resolution Status Atherosclerotic heart diseas e of [place] coronary artery without angina pectoris acute Essential hypertension acute Fatigue acute Rib pain acute Syncope and collapse acute Hyperlipidemia chronic Anticoagulant long-term use acute Arthralgia of foot, left acu te Arthralgia of right knee acu te Failure of outpatient treatment acute Gout flare acute Hypokalemia acute Inability to walk acute Atherosclerotic heart diseas e of [place] coronary artery without angina pectoris acute Essential hypertension acute Hyperlipidemia chronic Effusion, right knee acute [facility] Work Phone: Evaluation note* Diagnosis Onset Date Resolution Status Effusion, right knee acute Asthma chronic SUPA (obstructive sleep apnea) chronic [facility] Work Phone: Evaluation note* Diagnosis Onset Date Resolution Status Effusion, right knee acute Asthma chronic SUPA (obstructive sleep apnea) chronic Pneumonia acute HTN (hypertension) chronic [facility] Work Phone: Evaluation note* Diagnosis Onset Date Resolution Status Effusion, right knee acute Asthma chronic SUPA (obstructive sleep apnea) chronic Pneumonia acute Sinus drainage acute Asthma chronic SUPA (obstructive sleep apnea) [facility] Work Phone: Evaluation note* Diagnosis Onset Date Resolution Status Asthma chronic SUPA (obstructive sleep apnea) chronic Pneumonia acute Sinus drainage acute Asthma chronic SUPA (obstructive sleep apnea) [facility] Work Phone: Evaluation note* Diagnosis Onset Date Resolution Status Asthma chronic SUPA (obstructive sleep apnea) chronic Pneumonia acute Sinus drainage acute Asthma chronic SUPA (obstructive sleep apnea) chronic Asthma chronic SUPA (obstructive sleep apnea) chronic Atherosclerotic heart diseas e of [place] coronary artery without angina pectoris acute Essential hypertension acute Syncope and collapse acute Hyperlipidemia chronic [facility] Work Phone: Evaluation note* Diagnosis Onset Date Resolution Status Pneumonia acute Sinus drainage acute Asthma chronic SUPA (obstructive sleep apnea) chronic Asthma chronic SUPA (obstructive sleep apnea) chronic Atherosclerotic heart diseas e of [place] coronary artery without angina pectoris acute Essential hypertension acute Syncope and collapse acute Hyperlipidemia chronic [facility] Work Phone: Evaluation note* Diagnosis Onset Date Resolution Status Asthma chronic SUPA (obstructive sleep apnea) chronic Atherosclerotic heart diseas e of [place] coronary artery without angina pectoris acute Essential hypertension acute Syncope and collapse acute Hyperlipidemia chronic [id number] acute [facility] Work Phone: Evaluation note* Diagnosis Onset Date Resolution Status Asthma chronic SUPA (obstructive sleep apnea) chronic Atherosclerotic heart diseas e of [place] coronary artery without angina pectoris acute Essential hypertension acute Syncope and collapse acute Hyperlipidemia chronic [id number] acute Asthma chronic SUPA (obstructive sleep apnea) chronic Acute bronchitis with bronchospasm acute Acute respiratory insufficiency acute [id number] acute COVID-19 acute Dyspnea on exertion acute Prostate cancer acute [facility] Work Phone: Evaluation note* Diagnosis Onset Date Resolution Status Atherosclerotic heart diseas e of [place] coronary artery without angina pectoris acute Essential hypertension acute Syncope and collapse acute Hyperlipidemia chronic [id number] acute Asthma chronic SUPA (obstructive sleep apnea) chronic Acute bronchitis with bronchospasm acute Acute respiratory insufficiency acute [id number] acute COVID-19 acute Dyspnea on exertion acute Prostate cancer acute [id number] acute [facility] Work Phone: Evaluation note* Diagnosis Onset Date Resolution Status Atherosclerotic heart diseas e of [place] coronary artery without angina pectoris acute Essential hypertension acute Syncope and collapse acute Hyperlipidemia chronic [id number] acute Asthma chronic SUPA (obstructive sleep apnea) chronic Acute bronchitis with bronchospasm acute Acute respiratory insufficiency acute [id number] acute COVID-19 acute Dyspnea on exertion acute Prostate cancer acute [id number] acute Acute dyspnea acute Chronic anticoagulation acut e History of atrial fibrillation acute History of diabetes mellitus acute Pneumonia acute [facility] Work Phone: Evaluation note* Diagnosis Onset Date Resolution Status [id number] acute Asthma chronic SUPA (obstructive sleep apnea) chronic Acute bronchitis with bronchospasm acute Acute respiratory insufficiency acute [id number] acute COVID-19 acute Dyspnea on exertion acute Prostate cancer acute [id number] acute Acute dyspnea acute Chronic anticoagulation acut e History of atrial fibrillation acute History of diabetes mellitus acute Pneumonia acute [facility] Work Phone: Evaluation note* Diagnosis Onset Date Resolution Status Asthma chronic SUPA (obstructive sleep apnea) chronic Acute bronchitis with bronchospasm acute Acute respiratory insufficiency acute Dyspnea on exertion acute Chronic anticoagulation acut e History of atrial fibrillation acute History of diabetes mellitus acute Chest pain acute Diabetes acute Dyspnea acute History of coronary artery disease acute Nausea & vomiting acute [facility] Work Phone: Evaluation note* Diagnosis Onset Date Resolution Status Asthma chronic SUPA (obstructive sleep apnea) chronic Acute bronchitis with bronchospasm acute Acute respiratory insufficiency acute Dyspnea on exertion acute Chronic anticoagulation acut e History of atrial fibrillation acute History of diabetes mellitus acute Chronic anticoagulation acut e Atherosclerotic heart diseas e of [place] coronary artery without angina pectoris acute Chest pain acute Diabetes acute Dyspnea acute Essential hypertension acute History of coronary artery disease acute History of left heart catheterization ([facility]) November, 2 acute Hypokalemia acute Nausea & vomiting acute NSTEMI, initial episode of care acute Atrial fibrillation with RVR chronic [facility] Work Phone: Evaluation note* Diagnosis Onset Date Resolution Status Acute bronchitis with bronchospasm acute Acute respiratory insufficiency acute [id number] acute Dyspnea on exertion acute [id number] acute Chronic anticoagulation acut e History of atrial fibrillation acute History of diabetes mellitus acute [id number] acute [id number] acute [id number] acute [id number]-2151753 acute Chronic anticoagulation acut e Atherosclerotic heart diseas e of [place] coronary artery without angina pectoris acute Chest pain acute Diabetes acute Dyspnea acute Essential hypertension acute History of coronary artery disease acute History of left heart catheterization ([facility]) November, 2 acute Hypokalemia acute Nausea & vomiting acute Atrial fibrillation with RVR chronic NSTEMI, initial episode of care resolved [id number] acute Asthma chronic Dementia chronic SUPA (obstructive sleep apnea) chronic Pulmonary hypertension chron ic Atherosclerotic heart diseas e of [place] coronary artery without angina pectoris acute Fatigue acute Nonrheumatic aortic (valve) stenosis acute On amiodarone therapy acute Paroxysmal atrial fibrillation acute [facility] Work Phone: Evaluation note* Diagnosis Onset Date Resolution Status [id number] acute Chronic anticoagulation acut e History of atrial fibrillation acute History of diabetes mellitus acute [id number] acute [id number] acute [id number] acute [id number]-AATC-3644014 acute Chronic anticoagulation acut e Atherosclerotic heart diseas e of [place] coronary artery without angina pectoris acute Chest pain acute Diabetes acute Dyspnea acute Essential hypertension acute History of coronary artery disease acute History of left heart catheterization ([facility]) November, 2 acute Hypokalemia acute Nausea & vomiting acute Atrial fibrillation with RVR chronic NSTEMI, initial episode of care resolved [id number] acute Asthma chronic Dementia chronic SUPA (obstructive sleep apnea) chronic Pulmonary hypertension chron ic Atherosclerotic heart diseas e of [place] coronary artery without angina pectoris acute Fatigue acute Nonrheumatic aortic (valve) stenosis acute On amiodarone therapy acute Paroxysmal atrial fibrillation acute [facility] Work Phone: Evaluation note* Diagnosis Onset Date Resolution Status [id number] acute Asthma chronic SUPA (obstructive sleep apnea) chronic Acute bronchitis with bronchospasm acute Acute respiratory insufficiency acute [id number] acute COVID-19 acute Dyspnea on exertion acute Prostate cancer acute [id number] acute Acute dyspnea acute Chronic anticoagulation acut e History of atrial fibrillation acute History of diabetes mellitus acute [id number] acute [id number] acute [id number]-1611961 acute [id number] acute [facility] Work Phone: [facility] instructionsW[facility] Work Phone: Hospital Discharge instructionsAmbulatory Orders* Ears, Nose and Throat Location: None Selected [facility] Work Phone: Hospital Discharge instructions Additional Instructions Implant Used?: YesW[facility] Work Phone: Hospital Discharge instructions Additional Instructions [...] Your labs and chest x-ray look good today.[facility] Work Phone: Reason for referral (narrative)No reason for referral information availableWSelect Medical [facility] Work Phone: Summary Purpose Family History No Family History Records Found Relationship Condition Age at Onset Recorded Date/T bryan mother Cardiac disease Unknown Diabetes mellitus Unknown father Cardiac disease Unknown Disorder of lung Unknown brother Cardiac disease Unknown Malignant neoplasm Unknown sister Diabetes mellitus Unknown Advance Directives No Advanced Directives Records Found Advance Directive Response Recorded Date/ Time Advance Directives No December 18 022 9:33am Living Will Yes December 21, 2021 2:30pm Power of Valve Fitter Yes December 21 2:30pm Advance Directive Response Recorded Date/ Time Name of Medical Power of Valve Fitter DAISY December 21, 2021 2:30pm Advance Directives No December 18 9:33am Living Will Yes December 21, 2021 2:30pm Power of Valve Fitter Yes December 21 2:30pm Advance Directive Response Recorded Date/ Time Advance Directives No December 18 8:33am Living Will Yes December 21, 2021 1:30pm Power of Valve Fitter Yes December 21 1:30pm Advance Directive Response Recorded Date/ Time Advance Directives No December 18, 8:33am Living Will No October 02 10:54am Power of Valve Fitter No October 02, 10:54am Advance Directive Response Recorded Date/ Time Name of Medical Power of Valve Fitter Daisy Gimenez October 04, 2022 5:42pm Advance Directives No December 18 8:33am Living Will Yes October 04 5:42pm Power of Valve Fitter Yes October 04 5:42pm Advance Directive Response Recorded Date/ Time Name of Medical Power of Valve Fitter Daisy Gimenez October 04, 2022 6:42pm Advance Directives No December 18 9:33am Living Will Yes October 04 6:42pm Power of Valve Fitter Yes October 04, 6:42pm Advance Directive Response Recorded Date/ Time Advance Directives No December 18 9:33am Living Will Yes October 04 6:42pm Power of Valve Fitter Yes October 04, 6:42pm Advance Directive Response Recorded Date/ Time Name of Medical Power of Valve Fitter Faye Urbano, daughter and Natasha Gimenez, March 21, 2023 10:30pm Advance Directives No December 18 9:33am Living Will Yes March 21, 2023 10:30pm Power of Valve Fitter Yes March 21 10:30pm Advance Directive Response Recorded Date/ Time Name of Medical Power of Valve Fitter July 30, 2023 7:30am Advance Directives No December 18 8:33am Living Will Yes July 30 7:30am Power of Valve Fitter Yes July 30, 2023 7:30am Advance Directive Response Recorded Date/ Time Name of Medical Power of Valve Fitter DAISY GIMENEZ September 03, 2023 11:32pm Advance Directives No December 18 8:33am Living Will Yes September 03 11:32pm Power of Valve Fitter Yes September 03, 2023 11:32pm Name of Medical Power of Valve Fitter July 30, 2023 7:30am Advance Directive Response Recorded Date/ Time Name of Medical Power of Valve Fitter DAISY GIMENEZ September 04, 2023 6:12am Advance Directives No December 18 8:33am Living Will Yes September 04 6:12am Power of Valve Fitter Yes September 04, 2023 6:12am Name of Medical Power of Valve Fitter July 30, 2023 7:30am Advance Directive Response Recorded Date/ Time Name of Medical Power of Valve Fitter DAISY GIMENEZ September 04, 2023 6:12am Name of Medical Power of Valve Fitter July 30, 2023 7:30am Name of Medical Power of Valve Fitter daughter Faye Wells, and his . September 20, 2023 4:01pm Advance Directives No December 18 8:33am Living Will Yes September 20 4:01pm Power of Valve Fitter Yes September 20, 2023 4:01pm Advance Directive Response Recorded Date/ Time Name of Medical Power of Valve Fitter DAISY GIMENEZ September 04, 2023 6:12am Name of Medical Power of Valve Fitter NATASHA GIMENEZ November 11, 2023 7:52pm Advance Directives No December 18 8:33am Living Will No November 11 7:52pm Power of Valve Fitter Yes November 11, 2023 7:52pm Name of Medical Power of Valve Fitter July 30, 2023 7:30am Name of Medical Power of Valve Fitter daughter Faye Wells, and his . September 20, 2023 4:01pm Advance Directive Response Recorded Date/ Time Name of Medical Power of Valve Fitter DAISY GIMENEZ September 04, 2023 6:12am Name of Medical Power of Valve Fitter NATASHA GIMENEZ November 11, 2023 10:52pm Advance Directives No December 18 8:33am Living Will Yes November 11 10:52pm Power of Valve Fitter Yes November 11, 2023 10:52pm Name of Medical Power of Valve Fitter July 30, 2023 7:30am Name of Medical Power of Valve Fitter daughter Faye Wells, and his . September 20, 2023 4:01pm Advance Directive Response Recorded Date/ Time Name of Medical Power of Valve Fitter DAISY GIMENEZ September 04, 2023 7:12am Name of Medical Power of Valve Fitter NATASHA GIMENEZ November 11, 2023 11:52pm Name of Medical Power of Valve Fitter daughter Faye Wells, and his . September 20, 2023 5:01pm Advance Directives No October 10:20am Living Will Yes November 19 10:20am Power of Valve Fitter Yes November 19, 2023 10:20am Advance Directive Response Recorded Date/ Time Name of Medical Power of Valve Fitter NATASHA GIMENEZ November 11, 2023 11:52pm Name of Medical Power of Valve Fitter daughter Faye Wells, and his . September 20, 2023 5:01pm Advance Directives No October 10:20am Living Will Yes November 19 10:20am Power of Valve Fitter Yes November 19, 2023 10:20am Advance Directive Response Recorded Date/ Time Living Will Yes November 19 10:20am Do you have a Healthcare Power of Valve Fitter? Yes November 19, 2023 10:20am Living Will Yes May 27 11:05am Do you have a Healthcare Power of Valve Fitter? Yes May 27, 2024 11:05am Advance Directives No May 27, 2024 11:05am Advance Directive Response Recorded Date/ Time Living Will Yes November 19 10:20am Do you have a Healthcare Power of Valve Fitter? Yes November 19, 2023 10:20am Living Will Yes May 27 11:05am Do you have a Healthcare Power of Valve Fitter? Yes May 27, 2024 11:05am Do you have a Healthcare Power of Valve Fitter? Yes February 15, 2025 4:56pm Name of Medical Power of Valve Fitter Daisy Gimenez February 15, 2025 4:56pm Advance Directives No May 27, 2024 11:05am Hospital Course Note HNO ID: [id number] Author: Erica Greco MD Service: Hospital Medicine [...] Abnormal stress test Aortic stenosis CAD in [place] artery Chronic anticoagulation Closed head injury Contusion [...] Myoclonic jerking Syncope Atherosclerotic heart disease of [place] coronary artery without angina pectoris Fatigue Syncope [...] Myoclonic jerking Syncope Atherosclerotic heart disease of [place] coronary artery without angina pectoris Fatigue Syncope and collapse Hyperlipidemia Asthma SUPA (obstructive sleep apnea) Pulmonary hypertension Chief Complaint SYNCOPE,AFIB HX,ANTI COAGULATION SYNCOPE,AFIB HX,ANTICOAGULATION SYNCOPE,AFIB HX,ANTICOAGULATION SYNCOPE,AFIB HX,ANTICOAGULATION SYNCOPE,AFIB HX,ANTICOAGULATION ABN STRESS TEST, NSVT, SYNCOPE & COLLAPSE, HTN, PA 6-8 WK F/U 6 M FU E ORDER Reason for Visit Contusion of shoulde r Myoclonic jerking Syncope Atherosclerotic heart disease of [place] coronary artery without angina pectoris Fatigue Syncope and collapse Hyperlipidemia Asthma SUPA (obstructive sleep apnea) Pulmonary hypertension Chief Complaint 3 M FU PULMONARY HYPERTENION PULMONARY HYPERTENION INT LABS Reason for Visit Atherosclerotic hear t disease of [place] coronary artery without angina pectoris Essential hypertension Syncope and collapse Hyperlipidemia Chief Complaint 3 M FU PULMONARY HYPERTENION PULMONARY HYPERTENION INT LABS ESSENTIAL HYPERTENSION Reason for Visit Atherosclerotic hear t disease of [place] coronary artery without angina pectoris Essential hypertension Syncope and collapse Hyperlipidemia Chief Complaint PULMONARY HYPERTENIO N PULMONARY HYPERTENION INT LABS ESSENTIAL HYPERTENSION 6 M FU Reason for Visit Asthma SUPA (obstructive sleep apnea) Chief Complaint PULMONARY HYPERTENIO N PULMONARY HYPERTENION INT LABS ESSENTIAL HYPERTENSION 6 M FU 5 MO F/U EORDERS Reason for Visit Asthma SUPA (obstructive sleep apnea) Atherosclerotic heart disease of [place] coronary artery without angina pectoris Essential hypertension Fatigue Rib pain Syncope and collapse Hyperlipidemia Chief Complaint PULMONARY HYPERTENIO N PULMONARY HYPERTENION INT LABS ESSENTIAL HYPERTENSION 6 M FU 5 MO F/U EORDERS S/O- PAIN- COPY PCP RIGHT KNEE Reason for Visit Asthma SUPA (obstructive sleep apnea) Atherosclerotic heart disease of [place] coronary artery without angina pectoris Essential hypertension Fatigue Rib pain Syncope and collapse Hyperlipidemia Chief Complaint PULMONARY HYPERTENIO N PULMONARY HYPERTENION INT LABS ESSENTIAL HYPERTENSION 6 M FU 5 MO F/U EORDERS S/O- PAIN- COPY PCP RIGHT KNEE GOUT FLARE/INABILITY TO AMBULATE Pain Reason for Visit Asthma SUPA (obstructive sleep apnea) Atherosclerotic heart disease of [place] coronary artery without angina pectoris Essential hypertension [...] (obstructive sleep apnea) Atherosclerotic heart disease of [place] coronary artery without angina pectoris Essential hypertension [...] (obstructive sleep apnea) Atherosclerotic heart disease of [place] coronary artery without angina pectoris Essential hypertension Fatigue Rib pain Syncope and collapse Hyperlipidemia Anticoagulant long-term use Arthralgia of foot, left Arthralgia of right knee Failure of outpatient treatment Gout flare Hypokalemia Inability to walk Chief Complaint ESSENTIAL HYPERTENSI ON 6 M FU 5 MO F/U EORDERS S/O- PAIN- COPY PCP RIGHT KNEE GOUT FLARE/INABILITY TO AMBULATE Pain GOUT FLARE/INABILITY TO AMBULATE 8 wk fu PAIN- COPY PCP PAIN- COPY PCP Reason for Visit Asthma SUPA (obstructive sleep apnea) Atherosclerotic heart disease of [place] coronary artery without angina pectoris Essential hypertension Fatigue Rib pain Syncope and collapse Hyperlipidemia Anticoagulant long-term use Arthralgia of foot, left Arthralgia of right knee Failure of outpatient treatment Gout flare Hypokalemia Inability to walk Atherosclerotic heart disease of [place] coronary artery without angina pectoris Essential hypertension Hyperlipidemia Chief Complaint 5 MO F/U EORDERS S/O- PAIN- COPY PCP RIGHT KNEE GOUT FLARE/INABILITY TO AMBULATE Pain GOUT FLARE/INABILITY TO AMBULATE 8 wk fu PAIN- COPY PCP PAIN- COPY PCP Reason for Visit Atherosclerotic hear t disease of [place] coronary artery without angina pectoris Essential hypertension Fatigue Rib pain Syncope and collapse Hyperlipidemia Anticoagulant long-term use Arthralgia of foot, left Arthralgia of right knee Failure of outpatient treatment Gout flare Hypokalemia Inability to walk Atherosclerotic heart disease of [place] coronary artery without angina pectoris Essential hypertension [...] (obstructive sleep apnea) Atherosclerotic heart disease of [place] coronary artery without angina pectoris Essential hypertension Syncope and collapse Hyperlipidemia Chief Complaint LEFT WRIST AND LEFT ELBOW PAIN Shortness of breath PNEUMONIA Pneumonia Pneumonia Pneumonia Pneumonia Pneumonia Hospital FU PSA 6 wk FU 1 Y FU PROSTATE CA PROSTATE CA Reason for Visit Pneumonia Sinus drainage Asthma SUPA (obstructive sleep apnea) Asthma SUPA (obstructive sleep apnea) Atherosclerotic heart disease of [place] coronary artery without angina pectoris Essential hypertension Syncope and collapse Hyperlipidemia Chief Complaint PSA 6 wk FU 1 Y FU PROSTATE CA PROSTATE CA CONSULT - PROSTATE Space [employer] Gel and stain maker placement for radiat Reason for Visit Asthma SUPA (obstructive sleep apnea) Atherosclerotic heart disease of [place] coronary artery without angina pectoris Essential hypertension Syncope and collapse Hyperlipidemia [id number] Chief Complaint 6 wk FU 1 Y FU PROSTATE CA PROSTATE CA CONSULT - PROSTATE Space O[employer] Gel and stain maker placement for radiat 6 M FU Malignant neoplasm of prostate . COVID 19, ACUTE BRONCHITIS W/BRONCHOSPASM & GEN Reason for Visit Asthma SUPA (obstructive sleep apnea) Atherosclerotic heart disease of [place] coronary artery without angina pectoris Essential hypertension Syncope and collapse Hyperlipidemia [id number] Asthma SUPA (obstructive sleep apnea) Acute bronchitis with bronchospasm Acute respiratory insufficiency [id number] COVID-19 Dyspnea on exertion Prostate cancer Chief Complaint 6 wk FU 1 Y FU PROSTATE CA PROSTATE CA CONSULT - PROSTATE Space O[employer] Gel and stain maker placement for radiat 6 M FU Malignant neoplasm of prostate . COVID 19, ACUTE BRONCHITIS W/BRONCHOSPASM & GEN COVID 19, ACUTE BRONCHITIS W/BRONCHOSPASM & GEN Reason for Visit Asthma SUPA (obstructive sleep apnea) Atherosclerotic heart disease of [place] coronary artery without angina pectoris Essential hypertension Syncope and collapse Hyperlipidemia [id number] Asthma SUPA (obstructive sleep apnea) Acute bronchitis with bronchospasm Acute respiratory insufficiency [id number] COVID-19 Dyspnea on exertion Prostate cancer Chief Complaint 1 Y FU PROSTATE CA PROSTATE CA CONSULT - PROSTATE Space O[employer] Gel and stain maker placement for radiat 6 M FU Malignant neoplasm of prostate COVID 19, ACUTE BRONCHITIS W/BRONCHOSPASM & GEN COVID 19, ACUTE BRONCHITIS W/BRONCHOSPASM & GEN OTV OTV . Reason for Visit Atherosclerotic hear t disease of [place] coronary artery without angina pectoris Essential hypertension Syncope and collapse Hyperlipidemia [id number] Asthma SUPA (obstructive sleep apnea) Acute bronchitis with bronchospasm Acute respiratory insufficiency [id number] COVID-19 Dyspnea on exertion Prostate cancer [id number] Chief Complaint 1 Y FU PROSTATE CA PROSTATE CA CONSULT - PROSTATE Space O[employer] Gel and stain maker placement for radiat 6 M FU Malignant neoplasm of prostate COVID 19, ACUTE BRONCHITIS W/BRONCHOSPASM & GEN COVID 19, ACUTE BRONCHITIS W/BRONCHOSPASM & GEN OTV OTV . RLL PNEUMONIA, A-FIB, HX Reason for Visit Atherosclerotic hear t disease of [place] coronary artery without angina pectoris Essential hypertension Syncope and collapse Hyperlipidemia [id number] Asthma SUPA (obstructive sleep apnea) Acute bronchitis with bronchospasm Acute respiratory insufficiency [id number] COVID-19 Dyspnea on exertion Prostate cancer [id number] Acute dyspnea Chronic anticoagulation History of atrial fibrillation History of diabetes mellitus Pneumonia Chief Complaint PROSTATE CA PROSTATE CA CONSULT - PROSTATE Space O[employer] Gel and stain maker placement for radiat 6 M FU Malignant neoplasm of prostate COVID 19, ACUTE BRONCHITIS W/BRONCHOSPASM & GEN COVID 19, ACUTE BRONCHITIS W/BRONCHOSPASM & GEN OTV OTV RLL PNEUMONIA, A-FIB, HX RLL PNEUMONIA, A-FIB, HX RLL PNEUMONIA, A-FIB, HX RLL PNEUMONIA, A-FIB, HX RLL PNEUMONIA, A-FIB, HX . Reason for Visit [id number] Asthma SUPA (obstructive sleep apnea) Acute bronchitis with bronchospasm Acute respiratory insufficiency [id number] COVID-19 Dyspnea on exertion Prostate cancer [id number] Acute dyspnea Chronic anticoagulation History of atrial [...] mellitus Chronic anticoagulation Atherosclerotic heart disease of [place] coronary artery without angina pectoris Chest pain [...] F/U POST RT 6 M FU S/P [facility] 11/13 Reason for Visit Acute bronchitis wit h bronchospasm Acute respiratory insufficiency [id number] Dyspnea on exertion [id number] Chronic anticoagulation History of atrial fibrillation History of diabetes mellitus [id number] [id number] [id number] Chronic anticoagulation Atherosclerotic heart disease of [place] coronary artery without angina pectoris Chest pain Diabetes Dyspnea Essential hypertension History of coronary artery disease History of left heart catheterization ([facility]) Hypokalemia Nausea & vomiting Atrial fibrillation with RVR NSTEMI, initial episode of care [id number] Asthma Dementia SUPA (obstructive sleep apnea) Pulmonary hypertension Atherosclerotic heart disease of [place] coronary artery without angina pectoris Fatigue Nonrheumatic [...] F/U POST RT 6 M FU S/P [facility] 11/13 PAIN- COPY PCP Reason for Visit [id number] Chronic anticoagulation History of atrial fibrillation History of diabetes mellitus [id number] Chronic anticoagulation Atherosclerotic heart disease of [place] coronary artery without angina pectoris Chest pain Diabetes Dyspnea Essential hypertension History of coronary artery disease History of left heart catheterization (LHC) Hypokalemia Nausea & vomiting Atrial fibrillation with RVR NSTEMI, initial episode of care [id number] Asthma Dementia SUPA (obstructive sleep apnea) Pulmonary hypertension Atherosclerotic heart disease of [place] coronary artery without angina pectoris Fatigue Nonrheumatic aortic (valve) stenosis On amiodarone therapy Paroxysmal atrial fibrillation Chief Complaint CONSULT - PROSTATE Space OAR Gel and stain maker placement for radiat 6 M FU Malignant neoplasm of prostate COVID 19, ACUTE BRONCHITIS W/BRONCHOSPASM & GEN COVID 19, ACUTE BRONCHITIS W/BRONCHOSPASM & GEN OTV OTV RLL PNEUMONIA, A-FIB, HX RLL PNEUMONIA, A-FIB, HX RLL PNEUMONIA, A-FIB, HX RLL PNEUMONIA, A-FIB, HX RLL PNEUMONIA, A-FIB, HX RLL PNEUMONIA, A-FIB, HX OTV OTV OTV OTV . Amb Documentation Reason for Visit [id number] Asthma SUPA (obstructive sleep apnea) Acute bronchitis with bronchospasm Acute respiratory insufficiency [id number] COVID-19 Dyspnea on exertion Prostate cancer [id number] Acute dyspnea Chronic anticoagulation History of atrial fibrillation History of diabetes mellitus [id number] Chief Complaint Admit Date EORDER- PSA October [...] 27, 2024 8:21am Chief Complaint Admit Date 6 M FU November 17, 2024 10:09am 3 M FU November 27, 2024 8:21am HX CAD, FATIGUE December 10, 2024 6:1 2am HX CAD, FATIGUE December 10, 2024 1:4 8pm PSA December 25, 2024 9:5 0am CKD January 06, 2025 2:33 pm SOB February 15, 2025 4:31p m Additional Source Comments (unrecognized sect ion and content) No Status Records FoundNo Status Records FoundNo Status Records Found INFORMATION SOURCE (unrecogn ized section and content) DATE CREATED AUTHOR 02/24/2020 [facility] DATE CREATED AUTHOR AUTHOR'S ORGANIZ ATION 02/25/2020 [facility] DATE CREATED AUTHOR AUTHOR'S ORGANIZ ATION 03/09/2025 [facility] Goals (unrecognized section and content) Goals may [...] Status: Inactive Member Role Status Dates Dr. Jamye Yang MD Primary Care Provider, Referring Provider Active Dyan Chavez SCHEDULE ANNOUNCER, SCHEDULE ANNOUNCER-C Attending Provider Active Team Status: Active Member [...] MD Primary Care Provider Active Dyan Chavez NP, SCHEDULE ANNOUNCER-C Attending Provider, Referring P [place] Active Team Status: Inactive Member Role Status [...] Juany Bellamy DO Attending Provider, Referring P [place] Active Team Status: Inactive Member Role Status Dates Dr. Jayme Yang MD Primary Care Provider, Referring Provider Active Emerald Campos SCHEDULE ANNOUNCER, SCHEDULE ANNOUNCER-C Attending Provider Active Team Status: Inactive Member [...] Lopez MD Emergency Provider Active Dr. Drake Tereletsky , DO Admit Provider, Attending Provider, Other Provider Active Team Status: Active Member Role Status Dates Dr. Jayme Yang MD Primary Care Provider Active Dr. Jonathan Lopez MD Emergency Provider Active Dr. Drake Mason , DO Admit Provider, Other Provide r Active Dr. Boris Bojorquez MD Attending Provider, Other Provider Active Team Status: Inactive Member Role Status Dates Dr. Jayme Yang MD Primary Care Provider Active Dr. Jonathan Lopez MD Emergency Provider Active Dr. Drake Mason , DO Admit Provider, Other Provide r Active Dr. Boris Bojorquez MD Attending Provider Active Team Status: Inactive Member Role Status Dates Dr. Jayme Yang MD Primary Care Provider Active Dr. Tadeo [...] Marie MD Other Provider Active Teja Jefferson SCHEDULE ANNOUNCER, SCHEDULE ANNOUNCER-C Other Provider Active Dyan Chavez SCHEDULE ANNOUNCER, SCHEDULE ANNOUNCER-C Other Provider Active Faye Martinez PA, PA Other Provider Active Dr. Js Lee DO Other Provider Active Team Status: Active Member [...] Ordaz MD Other Provider Active Dr. Nabil Mraie MD Other Provider Active Teja Jefferson SCHEDULE ANNOUNCER, SCHEDULE ANNOUNCER-C Other Provider Active Dyan Chavez SCHEDULE ANNOUNCER, SCHEDULE ANNOUNCER-C Other Provider Active Faye Martinez PA, PA [...] Marie MD Other Provider Active Teja Jefferson SCHEDULE ANNOUNCER, SCHEDULE ANNOUNCER-C Other Provider Active Dyan Chavez SCHEDULE ANNOUNCER, SCHEDULE ANNOUNCER-C Other Provider Active Faye Martinez PA, PA [...] Marie MD Other Provider Active Teja Jefferson SCHEDULE ANNOUNCER, SCHEDULE ANNOUNCER-C Other Provider Active Dyan Chavez SCHEDULE ANNOUNCER, SCHEDULE ANNOUNCER-C Other Provider Active Faye Martinez PA, PA [...] Marie MD Other Provider Active Teja Jefferson SCHEDULE ANNOUNCER, SCHEDULE ANNOUNCER-C Other Provider Active Dyan Chavez SCHEDULE ANNOUNCER, SCHEDULE ANNOUNCER-C Other Provider Active Faye Martinez PA, PA Other Provider Active Dr. Js Lee , Other Provider Active Dr. Boris Bojorquez [...] 2024 End: November 17, 2024 Emerald Campos SCHEDULE ANNOUNCER, SCHEDULE ANNOUNCER-C Attending Provider Active Start: November 17, 2024 End: November 17, 2024 Team Status: Inactive Member Role Status Dates Dr. Jayme Yang MD Primary Care Provider Active Start: November 27, 2024 End: November 27, 2024 Dr. Jayme Yang MD Referring Provider Active Start: November 27, 2024 End: November 27, 2024 Teja Jefferson NP, SCHEDULE ANNOUNCER-C Attending Provider Active S tart: November 27, 2024 End: November 27, 2024 Team Status: Inactive Member Role Status Dates Dr. Jayme Yang MD Primary Care Provider Active Start: December 10, 2024 End: December 10, 2024 Teja Jefferson SCHEDULE ANNOUNCER, SCHEDULE ANNOUNCER-C Attending Provider Active S tart: December 10, 2024 End: December 10, 2024 Teja Jefferson SCHEDULE ANNOUNCER, SCHEDULE ANNOUNCER-C Referring Provider Active S tart: December 10, 2024 End: December 10, 2024 Team Status: Active Member Role Status Dates Dr. Jayme Yang MD Primary Care Provider Active Start: December 10, 2024 Teja Jefferson SCHEDULE ANNOUNCER, SCHEDULE ANNOUNCER-C Referring Provider Active S tart: December 10, 2024 Teja Jefferson SCHEDULE ANNOUNCER, SCHEDULE ANNOUNCER-C Other Provider Active Start : December 10, [...] 2025 End: February 15, 2025 Dr. Jonathan Lpoez MD Emergency Provider Active S tart: February 15, 2025 End: February 15, 2025 Team Status: Inactive Member Role Status Dates Dr. Jayme Yang MD Primary Care Provider Active Start: February 15, 2025 End: February 15, 2025 Dr. Jonathan Lopez MD Attending Provider Active S tart: February 15, 2025 End: February 15, 2025 Dr. Jonathan Lopez MD Emergency Provider Active S tart: February 15, 2025 End: February 15, 2025 Team Status: Inactive Member Role Status Dates Dr. Jayme Yang MD Primary Care Provider Active Start: March 04, 2025 End: March 04, 2025 Dr. Marycruz Yen MD Attending Provider Active Start: March 04, 2025 End: March 04, 2025 Dr. Marycruz Yen MD Referring Provider Active Start: March 04, 2025 End: March 04, 2025 FOR RECORDS PERTAINING TO PATIENTS WHO [...] BE BASED ON THE PRIMARY CLINICAL RECORDS. [employer] [facility]. provides no warranty or guarantee of the accuracy or completeness of information in this document.
--- OUTSIDE RECORDS SUMMARY | 2025-04-03 10:35 | XMS RPT_ITS | CCD ---
Author Organization [facility] Care Team Providers Care Last Chalker Name Role Phone Anabelle Mead Unavailable [place]uncion [...] Provider Dr. Jayme Lino Attending Provider Andres RANGE MOUNTER, RANGE MOUNTER-C Emerald Attending Provider Trey, Dr. Delacruz Primary Care Provider Trey, Dr. Delacruz Referring Provider Trey, Dr. Delacruz Primary Care Provider Yang, Dr. Delacruz Referring Provider Scott RANGE MOUNTER, RANGE MOUNTER-C Dyan Attending Provider Trey, Dr. Delacruz Primary Care Provider Trey, Dr. Delacruz Referring Provider Scott RANGE MOUNTER, RANGE MOUNTER-C Dyan Attending Provider Dr. Aquiles Modi Referring Provider Dr. Aquiles Modi Other Provider Dr. Newton Arroyo Attending Provider Yang, Dr. Delacruz Primary Care Provider Trey, Dr. Delacruz Referring Provider Scott RANGE MOUNTER, RANGE MOUNTER-C Dyan Attending Provider Rian, Dr. Kwan Referring Provider Rian, Dr. Kwan Other Provider Dr. Newton Arroyo Attending Provider Dr. Jayme Yang Primary Care Provider Trey, Dr. Delacruz Referring Provider Dr. Aquiles Modi Attending Provider Scott RANGE MOUNTER, RANGE MOUNTER-C Dyan Attending Provider Dr. Iker Stratton Emergency Provider Dr. Nela Bellamy Attending Provider Dr. Nela Bellamy Admit Provider Dr. Nela Bellamy Other Provider Dr. Boris Bojorquez Attending Provider Dr. Boris Bojorquez Other Provider Dr. Jayme Yang Primary Care Provider Dr. Jayme Yang Referring Provider Dr. Aquiles Modi Attending Provider Scott RANGE MOUNTER, RANGE MOUNTER-C Dyan Attending Provider Dr. Iker Stratton Emergency [...] Provider Dr. Jayme Yang Referring Provider Andres RANGE MOUNTER, RANGE MOUNTER-C Emerald Attending Provider Dr. James Sullivan Emergency Provider Dr. Pedro Ferreira Attending Provider Dr. Pedro Ferreira Admit Provider Dr. Pedro Ferreira Other Provider Dr. Boris Bojorquez Attending Provider Dr. Boris Bojorquez Other Provider Dr. Aquiles Modi Attending Provider Scott RANGE MOUNTER, RANGE MOUNTER-C Dyan Attending Provider Dr. Jayme Yagn Primary Care Provider [phone] Trey, Dr. Delacruz Referring Provider Andres MILLER, RANGE MOUNTER-C Emerald Attending Provider [phone] Dr. Jayme Yang Primary Care Provider Trey, Dr. Delacruz Referring Provider Dr. Aquiles Modi Attending Provider Soctt MILLER, RANGE MOUNTER-C Dyan Attending Provider Dr. Keo Montemayor Attending [...] Other Provider Dr. Suzie Ashton Attending Provider [phone] Dr. Suzie Ashton Other Provider Dr. Rachid Escobedo Other Provider Dr. Myrna Hendrix Other Provider Dr. Clifford Cordero Other Provider Dr. Jayme Lino Other Provider Dr. Channing Maldonado Other Provider Dr. Domenico Ordaz Other Provider Dr. Nabil Marie Other Provider Roof RANGE MOUNTER, RANGE MOUNTER-C Teja Waters Other Provider Scott RANGE MOUNTER, RANGE MOUNTER-C Dyan Other Provider Michelle PA, PA Faye Beckham Other Provider Dr. Js Lee Other Provider Dr. Clifford Cordero Attending Provider Dr. Js Lee Attending Provider Dr. Jayme Yang Primary Care Provider Dr. Keo Montemayor Attending Provider Dr. Keo Montemayor Referring Provider Dr. Mauricio Soto Emergency Provider Dr. Laureano Lucero Admit Provider Unavailabl e Dr. Laureano Lucero Other Provider Unavailabl e Dr. Laureano Liam Attending Provider Unavailable Dr. Laureano Lima Other [...] Provider Dr. Nabil Marie Other Provider Roof RANGE MOUNTER, RANGE MOUNTER-C Teja Waters Other Provider Scott RANGE MOUNTER, RANGE MOUNTER-C Dyan Other Provider Michelle PA, PA Faye Beckham Other Provider Dr. Js Lee Other Provider Dr. Clifford Cordero Attending Provider Dr. Js Lee Attending Provider Dr. Jayme Yang Referring Provider Andres RANGE MOUNTER, RANGE MOUNTER-C Emerald Attending Provider Dr. Jayme Yang Primary Care Provider Dr. Keo Montemayor Attending Provider Dr. Keo Montemayor Referring Provider Lucero Dr. Tinsley Admit Provider Unavailabl e Lucero, Dr. Tinsley Other Provider Unavailabl e Trey LAUGHLIN, Dr. Delacruz Primary Care Provider Farshad LAUGHLIN, Dr. Joel Attending Provider Farshad LAUGHLIN, Dr. Joel Referring Provider [facility], Dr. Crowley Attending Provider [facility], Dr. Crowley Referring Provider Trey LAUGHLIN, Dr. Delacrzu Attending Provider Trey LAUGHLIN, Dr. Delacruz Referring Provider Campos RANGE MOUNTER-C, Emerald Attending Provider Roof RANGE MOUNTER-C, Teja H Attending Provider Roof RANGE MOUNTER-C, Teja H Referring Provider Roof RANGE MOUNTER-C, Teja H Other Provider Gil LAUGHLIN, Dr. Horton Attending Provider Marsha LAUGHLIN, Dr. Surinder Rivera Attending Provider [phone] Marsha LAUGHLIN, Dr. Surinder Rivera Referring Provider [phone] Trey LAUGHLIN, Dr. Delacruz Primary Care Provider [facility], Dr. Crowley Attending Provider [facility], Dr. Crowley Referring Provider Trey LAUGHLIN, Dr. Delacruz Attending Provider Trey LAUGHLIN, Dr. Delacruz Referring Provider Campos RANGE MOUNTER-C, Emerald Attending Provider Roof RANGE MOUNTER-C, Teja H Attending Provider Roof RANGE MOUNTER-C, Teja H Referring Provider Roof RANGE MOUNTER-C, Teja H Other Provider Gil LAUGHLIN, Dr. Horton Attending Provider Marsha LAUGHLIN, Dr. Surinder Rivera Attending Provider Marsha LAUGHLIN, Dr. Surinder Rivera Referring Provider [phone] Josesito HEDRICK, Dr. Harrington Attending Provider Josesito HEDRICK, Dr. Harrington Referring Provider Trey LAUGHLIN, Dr. Delacruz Primary Care Provider Josesito HEDRICK, Dr. Harrington Attending Provider Josesito HEDRICK, Dr. Harrington Referring Provider John LAUGHLIN, Dr. Castillo Emergency Provider [phone] Trey LAUGHLIN, Dr. Delacruz Primary Care Provider Trey LAUGHLIN, Dr. Delacruz Referring Provider [phone] John LAUGHLIN, Dr. Castillo Attending Provider Farshad LAUGHLIN, Dr. Joel Attending Provider Farshad LAUGHLIN, Dr. Joel Referring Provider Marycruz Yen Attending Unavailable Yang, Jayme Primary Care Unavailable Vellanki, Marycruz Referring Unavailable Albina, Keo Referring Unavailable Keo Montemayor Attending Unavailable Yang, Jayme Primary Care Unavailable Roof RANGE MOUNTER, Teja Waters Referring Unavailable Roof RANGE MOUNTER, Teja Waters Attending Unavailable Yang, Jayme Primary Care Unavailable [place], Usha Referring Unavailable [place], Usha Attending Unavailable Yang, Jayme Primary Care Unavailable Yang, Jayme Attending Unavailable Yang, Jayme Referring Unavailable Yang, Jayme Primary Care Unavailable Yang, Jayme Attending Unavailable Yang, Jayme Primary Care Unavailable Yang, Jayme Referring Unavailable Vellanki, Marycruz Attending Unavailable Yang, Jayme Primary Care Unavailable Vellanki, Marycruz Referring Unavailable Yang, Jayme Primary Care Unavailable Campos RANGE MOUNTER, Emerald Referring Unavailable Campos RANGE MOUNTER, Emerald Attending Unavailable Yang, Jayme Primary Care [...] Care Unavailable Yang, Jayme Referring Unavailable Campos RANGE MOUNTER, Emerald Attending Unavailable Yang, Jayme Primary Care [...] Unavailable Yang, Jayme Primary Care Unavailable Li RANGE MOUNTER, Teja Waters Referring Unavailable Li RANGE MOUNTER, Teja Waters Consulting Unavailable Yang, Jayme Primary Care Unavailable Clifford Cordero Attending Unavailabl e Albina, Keo Attending Unavailable Yang, Jayme Primary Care Unavailable Yang, Jayme Referring Unavailable Yang, Jayme Primary Care Unavailable Suzie Ashton Attending Unavailable Li RANGE MOUNTER, Teja Waters Attending Unavailable Yang, Jayme Primary Care Unavailable Yang, Jayme Referring Unavailable Yang, Jayme Referring Unavailable Yang, Jayme Primary Care Unavailable Andres RANGE MOUNTER, Emerald Attending Unavailable Juany Bellamy Referring Unavailable Juany Bellamy Attending Unavailable Yang, Jayme Primary Care Unavailable Yang, Jayme Primary Care Unavailable John, Jonathan Attending Unavailable Allergies Allergy Classification Reported Allergen(s) Allergy Type Date of Onset Reaction(s) Facility (20 sources) aspirin; Translations: [aspirin] drug allergy 7 Mouth Swelling [facility] Work Phone: (6 sources) morphine drug allergy 7 GI Problems [facility] Work Phone: (20 sources) donepezil Drug Allergy 2 Swelling [facility] (20 sources) Minoxidil Drug Allergy 2 swelling [facility] (20 sources) Morphine Drug Allergy 2 UNABLE TO URINATE [facility] (1 source) Seasonal Allergies: Uncoded Allergy to substance 3 Other [facility] (1 source) donepezil Drug Allergy 5 [facility] (1 source) Morphine Drug Allergy 5 [facility] Medications Current Medications Medication Drug [...] tablet (2 sources) Macrolide Antimicrobial Start: 02-15-2025 Egqfokmjby-Kekpxucx-Oh rmoterol (7 sources) Corticosteroid, beta2-Adrenergic Agonist Start: [...] meal/food 0800/1700 Start: 05-25-2020 End: 02-20-2022 take [id number] tablet by mouth twice daily at mealtime [...] One tablet by mouth daily DULOXETINE HCL [id number] Faye Monsalve RN esomeprazole 20 mg delayed r elease oral capsule (20 sources) Proton Pump Inhibitor Start: 12-11-2023 Start: 10-02-2022 End: 09-20-2023 Start: 12-21-2021 End: 09-06-2022 Start: 12-12-2016 take 1 tablet by iraida th once daily NEXIUM 20 MG CPDR One tablet by mouth daily ESOMEPRAZOLE MAGNESIUM [id number] Jayme Lino MD Start: 12-12-2016 take 1 tablet by iraida th once daily NEXIUM 20 MG CPDR One tablet by mouth daily ESOMEPRAZOLE MAGNESIUM [id number] Jayme Lino MD furosemide 40 mg oral [...] Take 1 tablet by mouth once daily Bwilhgzr-Khx-Sx-Lycopen-Lute in (10 sources) Start: 09-17-2018 Hxaqpaiv-Zya-Jy-Lycopen-Lute in Active 1 EACH PO DAILY September 17, 2018 10:18pm Start: 09-17-2018 Iwdomllg-Bmu-O t-Koehqgs-Sqozus Active 1 EACH PO DAILY September 17, 2018 12:00am Start: 09-17-2018 Sxqiesaj-Slw-V q-Mwopohn-Vopkjn Active 1 EACH PO DAILY September 17, 2018 1:00am Ewsjorax-Udd-Gl-Lycopen-Lute in (Centrum Silver Men) 1 EACH tablet (4 sources) Start: 09-17-2018 take 1 tablet by mouth once daily Nbvskalp-Vey-Nd-Lycopen-Lutein (Centrum Silver Men) 1 EACH tablet Active 1 EACH PO DAILY September 17, 2018 1:00am Start: 09-17-2018 take 1 tablet by iraida th once daily Fslsknxs-Aks-Js-Lycopen-Lutein (Centrum Silver Men) 1 EACH tablet Active 1 EACH PO DAILY September 17, 2018 12:00am Multivitamin tablet (1 source) Start: 12-11-2023 Multivitamin t ablet Active 1 {tbl} PO DAILY December 11, 2023 12:00am nystatin 712407 unt/ml oral suspension (5 sources) Polyene Antifungal Start: 11-17-2024 Start: 11-17-2024 Nystatin 100,0 00 unit/mL suspension Active 5 mL MUCOUS MEM THREE TIMES A DAY 250 November 17, 2024 1:00am swish and swallow 5 cc three times per day for 10 days Otis-3 Fatty Acids (Fish Oil Concentrate) 1,000 mg Capsule (1 source) Start: 10-04-2022 take 1 capsule by mouth twice daily Otis-3 Fatty Acids (Fish Oil Concentrate) 1,000 mg Capsule Active 1000 MG PO TWICE A DAY October 04, 2022 12:00am Otis-3 Fatty Acids-Vitamin E (11 sources) Start: 03-22-2023 take 1 capsule by mouth once daily Otis-3 Fatty Acids-Vitamin E Active 1 CAP PO DAILY March 21, 2023 11:00pm Start: 03-22-2023 take 1 capsule by mo [facility] twice daily Otis-3 Fatty Acids-Vitamin E Active 1 CAP PO TWICE A DAY March 21, 2023 11:00pm Start: 03-22-2023 Otis-3 Fatty Acids-Vitamin E Active CAP PO March [...] tablet by mouth daily AMLODIPINE BESY-BENAZEPRIL HCL [id number] Faye Monsalve RN Start: 07-20-2013 End: 09-25-2018 [...] TABS One tablet by mouth daily ATENOLOL [id number] Jayme Lino MD balsalazide disodium 750 mg oral capsule (20 sources) Aminosalicylate Start: 09-17-2018 End: 02-08-2021 Start: 12-12-2016 take 3 tablets by mo uth twice daily BALSALAZIDE DISODIUM 750 MG CAPS Three tablets by mouth twice a day BALSALAZIDE DISODIUM [id number] Faye Monsalve RN benzonatate 100 mg oral [...] 09-20-2023 Start: 12-21-2021 [facility] Calcium Carbonate-Vitamin D3 Active 1 [...] One tablet by mouth daily CETIRIZINE HCL [id number] Jayme Lino MD chlorthalidone 50 mg oral [...] 4 % SOLN as needed CROMOLYN SODIUM [id number] Faye Monsalve RN cyclobenzaprine hydrochloride 5 mg oral tablet (12 sources) Muscle Relaxant Start: 12-12-2016 End: 12-13-2016 take 1 tablet by mouth once daily at bedtime CYCLOBENZAPRINE HCL 5 MG TABS One tablet by mouth daily @ bedtime CYCLOBENZAPRINE HCL [id number] Jayme Lino MD dexamethasone 6 mg oral [...] Histamine-1 Receptor Antagonist Start: 06-24-2019 End: 09-26-2021 Otis 6-Rxu-Tpz-Fish Oil (7 sources) Start: 12-11-2023 End: 06-26-2024 Otis 6-Mex-Dmh-Fish Oil (Fish Oil) 300-1,000 mg capsule Discontinued [...] mouth twice daily OMEGA-3 FATTY ACIDS CAPS [id number] Faye Monsalve RN 30 actuat fluticasone furoate [...] TABS One tablet by mouth daily HYDROCHLOROTHIAZIDE [id number] Jayme Lino MD inFLIXimab 100 mg injection (6 sources) Tumor Necrosis Factor Andrey Start: 12-12-2016 take 100 mg intravenous route every two months REMICADE 100 MG SOLR IV every [address] [place] [address] [id number] Faye Monsalve RN ipratropium bromide 0.021 mg/actuat metered dose nasal spray (20 sources) Anticholinergic Start: 05-21-2023 End: 09-04-2023 Start: 05-21-2023 End: 09-04-2023 Ipratropium [place] 21 mcg ( 0.03 %) spray,non-aerosol Discontinued 2 NMA INTRANASAL TWICE A DAY May 21, 2023 12:00am September 04, 2023 2:52am administer into each nostril Start: 05-21-2023 End: 09-04-2023 take 1 spray(s) nasal route twice daily Ipratropium [place] Discontinued 2 SPRAY INTRANASAL TWICE A DAY [...] tablet by mouth twice daily METFORMIN HCL [id number] Faye Monsalve RN metoclopramide 10 mg oral ta blet (20 sources) Dopamine-2 Receptor Antagonist Start: 06-24-2019 End: 10-06-2019 metoprolol tartrate 50 mg or al tablet (20 sources) beta-Adrenergic Andrey Start: 05-28-2019 End: 06-02-2019 Start: 01-22-2018 End: 09-25-2018 Start: 03-22-2017 METOPROLOL TAR TRATE 50 MG TABS One pill twice a day METOPROLOL TARTRATE [id number] Teja Jefferson RANGE MOUNTER montelukast 10 mg oral tablet (20 sources) Leukotriene Receptor Antagonist Start: 04-04-2023 End: 12-21-2024 MULTIPLE VITAMINS-MINERALS (4 sources) Start: 12-12-2016 take 1 tablet by mouth once daily Cognitive Match SENIOR TABS One tablet by mouth daily MULTIPLE VITAMINS-MINERALS [id number] aFye Monsalve RN MULTIPLE VITAMINS-MINERALS (2 sources) Start: 12-12-2016 take 1 tablet by mouth once daily SENTRY SENIOR TABS One tablet by mouth daily MULTIPLE VITAMINS-MINERALS [id number] Faye Monsalve RN Lu-Gib-Lotxn-K1-Ly copen-Lutein (Centrum Silver Men) 1 EACH tablet (12 sources) Start: 09-17-2018 End: 09-20-2023 take 1 tablet by mouth once daily Op-Gcb-Movbm-K1-Lyc open-Lutein (Centrum Silver Men) 1 EACH tablet Discontinued 1 NMA PO DAILY September 17, 2018 1:00am September 20, 2023 3:57pm Start: 09-17-2018 take 1 tablet by iraida th once daily Yb-Hem-Ublue-Z7-Nnjzwmc-Vuiumc (Centrum Silver Men) 1 EACH tablet Active 1 EACH PO DAILY September 17, 2018 12:00am Start: 09-17-2018 take 1 tablet by iraida th once daily Nd-Khx-Dldqs-T5-Dcggcic-Slhzno (Centrum Silver Men) 1 EACH tablet Active 1 EACH PO DAILY September 17, 2018 1:00am nebivolol 10 mg oral tablet (8 sources) Start: 12-12-2016 End: 03-22-2017 take 1 tablet by mouth once daily BYSTOLIC 10 MG TABS One tablet by mouth daily NEBIVOLOL HCL [id number] Teja Jefferson NP Otis-3 Fatty Acids (20 sources) Start: 10-04-2022 End: 04-04-2023 take 1000 mg by mouth twice daily Otis-3 Fatty Acids Discontinued 1000 MG PO TWICE A DAY October 04, 2022 12:00am April 04, 2023 7:12am Start: 10-04-2022 End: 04-04-2023 take 1000 mg by mouth twice daily Otis-3 Fatty Acids Discontinued 1000 MG PO TWICE A DAY October 04, 2022 1:00am April 04, 2023 8:12am Start: 10-04-2022 take 1000 mg by mout h twice daily Otis-3 Fatty Acids Active 1000 MG PO TWICE A DAY October 04, 2022 1:00am Start: 10-04-2022 take 1000 mg by mout h twice daily Otis-3 Fatty Acids Active 1000 MG PO TWICE A DAY October 04, 2022 12:00am Start: 12-13-2021 take 1000 mg by mout h twice daily Otis-3 Fatty Acids Active 1000 MG PO TWICE A DAY December 13, 2021 9:13am Start: 12-13-2021 take 1000 mg by mout h twice daily Otis-3 Fatty Acids Active 1000 MG PO TWICE A DAY December 13, 2021 10:13am Start: 08-09-2021 End: 12-13-2021 take 1000 mg by mouth once daily Otis-3 Fatty Acids Discontinued 1000 MG PO DAILY August 09, 2021 1:34pm December 13, 2021 10:14am Start: 08-09-2021 End: 12-13-2021 take 1000 mg by mouth once daily Otis-3 Fatty Acids Discontinued 1000 MG PO DAILY August 09, 2021 12:00am December 13, 2021 9:14am Start: 08-09-2021 End: 12-13-2021 take 1000 mg by mouth once daily Otis-3 Fatty Acids Discontinued 1000 MG PO DAILY August 09, 2021 1:00am December 13, 2021 10:14am Otis-3 Fatty Acids 1,000 mg Capsule (1 source) Start: 10-04-2022 End: 04-04-2023 take 1 capsule by mouth twice daily Otis-3 Fatty Acids 1,000 mg Capsule Discontinued 1000 mg PO TWICE A DAY October 04, 2022 1:00am April 04, 2023 8:12am Otis-3 Fatty Acids Capsule (1 source) Start: 08-09-2021 End: 12-13-2021 take 1 capsule by mouth once daily Otis-3 Fatty Acids Capsule Discontinued 1000 mg PO DAILY August 09, 2021 1:00am December 13, 2021 10:14am Otis-3 Fatty Acids-Fish Oil (20 sources) Start: 09-17-2018 End: 10-23-2018 take 1000 mg by mouth once daily Otis-3 Fatty Acids-Fish Oil Discontinued 1000 MG PO DAILY September 17, 2018 10:18pm October 23, 2018 12:40pm Start: 09-17-2018 End: 10-23-2018 take 1000 mg by mouth once daily Otis-3 Fatty Acids-Fish Oil Discontinued 1000 MG PO DAILY September 17, 2018 12:00am October 23, 2018 11:40am Start: 09-17-2018 End: 10-23-2018 take 1000 mg by mouth once daily Otis-3 Fatty Acids-Fish Oil Discontinued 1000 MG PO DAILY September 17, 2018 1:00am October 23, 2018 12:40pm Otis-3 Fatty Acids-Fish Oil 1 EACH capsule (1 source) Start: 09-17-2018 End: 10-23-2018 take 1 capsule by mouth once daily Otis-3 Fatty Acids-Fish Oil 1 EACH capsule Discontinued 1000 mg PO DAILY September 17, 2018 1:00am October 23, 2018 12:40pm Otis-3 Fatty Acids-Vitamin E 1,000 mg Capsule (1 source) Start: 03-22-2023 End: 09-20-2023 Otis-3 Fatty Acids-Vitamin E 1,000 mg Capsule Discontinued 1 NMA PO DAILY March 22, 2023 12:00am September 20, 2023 3:57pm omeprazole 20 mg delayed release oral capsule (6 sources) Proton Pump Inhibitor Start: 12-12-2016 take 1 tablet by mouth once daily OMEPRAZOLE 20 MG CPDR One tablet by mouth daily OMEPRAZOLE [id number] Faye Monsalve RN phenazopyridine hydrochloride 100 mg oral tablet (9 sources) Start: 11-08-2023 End: 12-11-2023 polyethylene glycol 3350 40451 mg powder for oral solution (7 sources) [...] One half tablet by mouth daily SIMVASTATIN [id number] Jayme Lino MD spacer (20 sources) Start: [...] Coronary arteriosclerosis; Translations: [Atherosclerotic heart diseas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] Onset: 12-21-2024 [...] Long-term current use of anticoagulant; Translations: [terminal operator (current) use of anticoagulants] 10-04-2022 Episodic Other aftercare (17 sources) group home (current) use of anticoagulants; Translations: [Long-term (current) use of anticoagulants] Episodic Other aftercare (12 sources) Drug therapy finding; Translations: [Other superintendent terminal (current) drug therapy] 12-11-2023 Episodic Other aftercare (4 sources) Other superintendent terminal (current) drug therapy; Translations: [Long-term (current) use [...] around 70% with the mid RCA occluded, WELL CLEANER Unclassified (6 sources) Family history of alcoholism; Translations: [Family history of alcohol abuse and dependence] 12-12-2016 Episodic Results Test Name Value Interpretation Reference Range Facility Absolute lymphocyte countOrd ered By: Marycruz Yen on 03-04-2025 Lymphocytes Auto (Unsp spec) [#/Vol] 2.06 10*3/uL 0.83-4.51 [facility] Anion gap in Serum or Plasma Ordered By: Marycruz Yen on 03-04-2025 Anion gap [Moles/Vol] 12 mmol/L 5-15 [facility] Automated lymphocyte count a s percentage of total leukocytesOrdered By: Marycruz Yen on 03-04-2025 Lymphocytes/100 WBC Auto (Unsp spec) 45.2 % High 19-41 [facility] BUN/creatinine ratioOrdered By: Marycruz Yen on 03-04-2025 Urea nitrogen/Creatinine [Mass ratio] 14.0 mg/mg 10-20 [facility] Basophil percentageOrdered B y: Marycruz Yen on 03-04-2025 Basophils/100 WBC (Bld) 0.9 % 0-1 [facility] Bilirubin, totalOrdered By: Marycruz Yen on 03-04-2025 Bilirubin [Mass/Vol] 0.34 mg/dL 0.00-1.30 [facility] Carbon dioxide, total [Moles /volume] in Central venous bloodOrdered By: Marycruz Yen on 03-04-2025 CO2 [Moles/Vol] 25.2 mmol/L 21.0-32.0 [facility] Chloride assayOrdered By: Adry Yen on 03-04-2025 Chloride [Moles/Vol] 105 mmol/L 98-108 [facility] Eosinophil percentageOrdered By: Marycruz Yen on 03-04-2025 Eosinophils/100 WBC (Bld) 2.2 % 0-5 [facility] Erythrocyte distribution wid th ratioOrdered By: Marycruz Yen on 03-04-2025 Erythrocyte distribution width (RBC) [Ratio] 14.7 % High 11.6-14.6 [facility] Erythrocyte distribution wid th standard deviationOrdered By: Marycruz Yen on 03-04-2025 Erythrocyte distribution width (RBC) [Ratio] 49.6 fl High 35.1-43.9 [facility] Glomerular filtration rate ( GFR) estimation/1.73 sq m using serum, plasma, or whole bOrdered By: Marycruz Yen on 03-04-2025 GFR/1.73 sq M.predicted among non-blacks MDRD (S/P/Bld) [Vol rate/Area] 40 mL/min/{1.73_m2} Low >60 [facility] Hematocrit Auto (Bld) [Volum e fraction]Ordered By: Marycruzjulisa Yen on 03-04-2025 Hematocrit (Bld) [Volume fraction] 30.7 % Low 40-54 [facility] Hemoglobin measurementOrdere d By: Marycruz Yen on 03-04-2025 Hemoglobin (Bld) [Mass/Vol] 10.0 g/dL Low 13.0-16.5 [facility] Immature granulocytes/100 WB C Auto (Bld)Ordered By: Marycruz Yen on 03-04-2025 Immature granulocytes/100 WBC (Bld) 0.200 % 0.0-0.9 [facility] MCV (mean corpuscular volume ) determinationOrdered By: Marycruz Yen 03-04-2025 MCV (RBC) [Entitic vol] 93.0 fL 80-94 [facility] Mean corpuscular hemoglobin (MCH) determinationOrdered By: Marycruzjulisa Yen 03-04-2025 MCH (RBC) [Entitic mass] 30.3 pg 27.0-32.0 [facility] Monocyte percentageOrdered B y: Marycruz Yen on 03-04-2025 Monocytes/100 WBC (Bld) 13.2 % High 0-10 [facility] Neutrophil percentageOrdered By: Marycruz Yen on 03-04-2025 Neutrophils/100 WBC (Bld) 38.3 % Low 47-70 [facility] No Panel InformationOrdered By: Marycruz Yen on 03-04-2025 40 U/L High <38 [facility] Platelet countOrdered By: Adry Yen on 03-04-2025 Platelets (Bld) [#/Vol] 197 10*3/uL 150-450 [facility] Potassium measurement (mass/ volume)Ordered By: Marycruz Yen on 03-04-2025 Potassium (Unsp spec) [Mass/Vol] 3.7 mmol/L 3.3-5.1 [facility] RBC Auto (Bld) [#/Vol]Ordere d By: Marycruz Yen on 03-04-2025 RBC (Bld) [#/Vol] 3.30 10*6/uL Low 4.6-6.2 [facility] Serum creatinine measurement (mass/volume)Ordered By: Marycruz Yen on 03-04-2025 Creatinine [Mass/Vol] 1.71 mg/dL High 0.70-1.20 [facility] Serum globulin measurementOr dered By: Marycruz Yen on 03-04-2025 Globulin (S) [Mass/Vol] 3.6 g/dL 2.2-4.2 [facility] Serum glucose measurement (m ass/volume)Ordered By: Marycruz Yen on 03-04-2025 Glucose [Mass/Vol] 94 mg/dL 70-99 [facility] Serum or plasma alanine min otransferase (ALT) measurementOrdered By: Marycruz Yen on 03-04-2025 ALT [Catalytic activity/Vol] 46 U/L <47 [facility] Serum or plasma albumin amanda urement (mass/volume)Ordered By: Marycruz Yen on 03-04-2025 Albumin [Mass/Vol] 3.6 g/dL 3.4-4.8 [facility] Serum or plasma albumin/glob ulin mass ratioOrdered By: Marycruz Yen on 03-04-2025 Albumin/Globulin [Mass ratio] 1.0 {ratio} 0.9-2.4 [facility] Serum or plasma alkaline db sphatase measurementOrdered By: Marycruz Yen on 03-04-2025 ALP [Catalytic activity/Vol] 61 U/L 40-129 [facility] Serum or plasma calcium amanda urement (mass/volume)Ordered By: Marycruz Yen on 03-04-2025 Calcium [Mass/Vol] 8.9 mg/dL 7.6-11.0 [facility] Serum or plasma urea nitroge n measurement (mass/volume)Ordered By: Marycruz Yen on 03-04-2025 Urea nitrogen [Mass/Vol] 24 mg/dL High 4-19 [facility] Serum or plasma uric acid me asurement (mass/volume)Ordered By: Marycruz Yen on 03-04-2025 Urate [Mass/Vol] 6.6 mg/dL 3.5-7.2 [facility] Sodium levelOrdered By: Anival Yen on 03-04-2025 Sodium [Moles/Vol] 143 mmol/L 133-145 [facility] Total proteinOrdered By: Jamir Yen on 03-04-2025 Protein [Mass/Vol] 7.2 g/dL 5.9-8.4 [facility] White blood cell (WBC) count Ordered By: Marycruz Yen on 03-04-2025 WBC (Bld) [#/Vol] 4.6 10*3/uL 4.4-11.0 [facility] Absolute lymphocyte countOrd ered By: Jonathan Lopez on 02-15-2025 Lymphocytes Auto (Unsp spec) [#/Vol] 1.69 10*3/uL 0.83-4.51 [facility] Anion gap in Serum or Plasma Ordered By: Jonathan Lopez on 02-15-2025 Anion gap [Moles/Vol] 12 mmol/L 5-15 [facility] Automated lymphocyte count a s percentage of total leukocytesOrdered By: Jonathan Lopez on 02-15-2025 Lymphocytes/100 WBC Auto (Unsp spec) 22.7 % - [facility] BUN/creatinine ratioOrdered By: Jonathan Lopez on 02-15-2025 Urea nitrogen/Creatinine [Mass ratio] 13.5 mg/mg 10-20 [facility] Basophil percentageOrdered B y: Jonathan Lopez on 02-15-2025 Basophils/100 WBC (Bld) 0.3 % 0-1 [facility] Carbon dioxide, total [Moles /volume] in Central venous bloodOrdered By: Jonathan Lopez on 02-15-2025 CO2 [Moles/Vol] 23.1 mmol/L 21.0-32.0 [facility] Chloride assayOrdered By: Rodger Lopez on 02-15-2025 Chloride [Moles/Vol] 102 mmol/L 98-108 [facility] Eosinophil percentageOrdered By: Jonathan Lopez on 02-15-2025 Eosinophils/100 WBC (Bld) 0.8 % 0-5 [facility] Erythrocyte distribution wid th ratioOrdered By: Jonathan Lopez on 02-15-2025 Erythrocyte distribution width (RBC) [Ratio] 14.1 % 11.6-14.6 [facility] Erythrocyte distribution wid th standard deviationOrdered By: Jonathan Lopez on 02-15-2025 Erythrocyte distribution width (RBC) [Ratio] 47.8 fl High 35.1-43.9 [facility] Glomerular filtration rate ( GFR) estimation/1.73 sq m using serum, plasma, or whole bOrdered By: Jonathan Lopez on 02-15-2025 GFR/1.73 sq M.predicted among non-blacks MDRD (S/P/Bld) [Vol rate/Area] 41 mL/min/{1.73_m2} Low >60 [facility] Hematocrit Auto (Bld) [Volum e fraction]Ordered By: Jonathan Lopez on 02-15-2025 Hematocrit (Bld) [Volume fraction] 29.3 % Low 40-54 [facility] Hemoglobin measurementOrdere d By: Jonathan Lopez on 02-15-2025 Hemoglobin (Bld) [Mass/Vol] 9.9 g/dL Low 13.0-16.5 [facility] Immature granulocytes/100 WB C Auto (Bld)Ordered By: Jonathan Lopez on 02-15-2025 Immature granulocytes/100 WBC (Bld) 0.300 % 0.0-0.9 [facility] Influenza virus A and B and SARS-CoV-2 (COVID-19) and Respiratory syncytial virus RNAOrdered By: Jonathan Lopez on 02-15-2025 SARS-CoV-2 (COVID-19) RNA IRINA+probe Ql (Unsp spec) [facility] MCV (mean corpuscular volume ) determinationOrdered By: Jonathan Lopez on 02-15-2025 MCV (RBC) [Entitic vol] 92.1 fL 80-94 [facility] Mean corpuscular hemoglobin (MCH) determinationOrdered By: Jonathan Lopez on 02-15-2025 MCH (RBC) [Entitic mass] 31.1 pg 27.0-32.0 [facility] Monocyte percentageOrdered B y: Jonathan Lopez on 02-15-2025 Monocytes/100 WBC (Bld) 10.9 % High 0-10 [facility] Neutrophil percentageOrdered By: Jonathan Lopez on 02-15-2025 Neutrophils/100 WBC (Bld) 65.0 % 47-70 [facility] Platelet countOrdered By: Rodger Lopez on 02-15-2025 Platelets (Bld) [#/Vol] 185 10*3/uL 150-450 [facility] Potassium measurement (mass/ volume)Ordered By: Jonathan Lopez on 02-15-2025 Potassium (Unsp spec) [Mass/Vol] 4.0 mmol/L 3.3-5.1 [facility] RBC Auto (Bld) [#/Vol]Ordere d By: Jonathan Lopez on 02-15-2025 RBC (Bld) [#/Vol] 3.18 10*6/uL Low 4.6-6.2 [facility] Serum creatinine measurement (mass/volume)Ordered By: Jonathan Lopez on 02-15-2025 Creatinine [Mass/Vol] 1.69 mg/dL High 0.70-1.20 [facility] Serum glucose measurement (m ass/volume)Ordered By: Jonathan Lopez on 02-15-2025 Glucose [Mass/Vol] 154 mg/dL High 70-99 [facility] Serum or plasma calcium amanda urement (mass/volume)Ordered By: Jonathan Lopez on 02-15-2025 Calcium [Mass/Vol] 8.7 mg/dL 7.6-11.0 [facility] Serum or plasma urea nitroge n measurement (mass/volume)Ordered By: Jonathan Lopez on 02-15-2025 Urea nitrogen [Mass/Vol] 23 mg/dL High 4-19 [facility] Sodium levelOrdered By: Jonathan Lopez on 02-15-2025 Sodium [Moles/Vol] 137 mmol/L 133-145 [facility] White blood cell (WBC) count Ordered By: Jonathan Lopez on 02-15-2025 WBC (Bld) [#/Vol] 7.4 10*3/uL 4.4-11.0 [facility] Anion gap in Serum or Plasma Ordered By: Juany Bellamy on 01-06-2025 Anion gap [Moles/Vol] 11 mmol/L 5-15 [facility] BUN/creatinine ratioOrdered By: Juany Bellamy on 01-06-2025 Urea nitrogen/Creatinine [Mass ratio] 12.0 mg/mg 10-20 [facility] Carbon dioxide, total [Moles /volume] in Central venous bloodOrdered By: Juany Bellamy on 01-06-2025 CO2 [Moles/Vol] 23.3 mmol/L 21.0-32.0 [facility] Chloride assayOrdered By: Michael Bellamy on 01-06-2025 Chloride [Moles/Vol] 106 mmol/L 98-108 [facility] Creatinine Unsp time (U) [Ma ss/Vol]Ordered By: Juany Bellamy on 01-06-2025 Creatinine (U) [Mass/Vol] 52.20 mg/dL 39.00-259. 00 [facility] Erythrocyte distribution wid th (RBC) [Ratio]Ordered By: Juany Bellamy on 01-06-2025 Erythrocyte distribution width (RBC) [Entitic vol] 54.2 fL High 35.1-43.9 [facility] Erythrocyte distribution wid th ratioOrdered By: Juany Bellamy on 01-06-2025 Erythrocyte distribution width (RBC) [Ratio] 15.5 % High 11.6-14.6 [facility] Erythrocyte distribution wid th standard deviationOrdered By: Juany Bellamy on 01-06-2025 Erythrocyte distribution width (RBC) [Ratio] 54.2 fl High 35.1-43.9 [facility] GFR/1.73 sq M.predicted ida g non-blacks MDRD (S/P/Bld) [Vol rate/Area]Ordered By: Juany Bellamy on 01-06-2025 Estimated GFR (MDRD) Non-Af Amer 39 Low >60 [facility] Comment on above: mL/min/1.73m2 CKD-EP I Creatinine Equation (2020) Glomerular filtration rate ( GFR) estimation/1.73 sq m using serum, plasma, or whole bOrdered By: Juany Bellamy on 01-06-2025 GFR/1.73 sq M.predicted among non-blacks MDRD (S/P/Bld) [Vol rate/Area] 39 mL/min/{1.73_m2} Low >60 [facility] Hematocrit Auto (Bld) [Volum e fraction]Ordered By: Juany Bellamy on 01-06-2025 Hematocrit (Bld) [Volume fraction] 28.2 % Low 40-54 [facility] Hemoglobin measurementOrdere d By: Juany Bellamy on 01-06-2025 Hemoglobin (Bld) [Mass/Vol] 9.3 g/dL Low 13.0-16.5 [facility] MCV (mean corpuscular volume ) determinationOrdered By: Juany Bellamy on 01-06-2025 MCV (RBC) [Entitic vol] 94.3 fL High 80-94 [facility] Mean corpuscular hemoglobin (MCH) determinationOrdered By: Juany Bellamy on 01-06-2025 MCH (RBC) [Entitic mass] 31.1 pg 27.0-32.0 [facility] Mean corpuscular hemoglobin concentration (MCHC) determinationOrdered By: Juany Bellamy on 01-06-2025 MCHC (RBC) [Mass/Vol] 33.0 g/dL 32-36 [facility] Mean platelet volume determi nationOrdered By: Juany Bellamy on 01-06-2025 Platelet mean volume (Bld) [Entitic vol] 11.5 fL 6.2-12.0 [facility] PTH intactOrdered By: Henrique Bellamy on 01-06-2025 Parathyroid Hormone (Intact) 29 pg/mL 11-61 [facility] Platelet countOrdered By: Michael Bellamy on 01-06-2025 Platelets (Bld) [#/Vol] 146 10*3/uL Low 150-450 [facility] Potassium (Unsp spec) [Mass/ Vol]Ordered By: Juany Bellamy on 01-06-2025 Potassium [Moles/Vol] 3.7 mmol/L 3.3-5.1 [facility] Potassium measurement (mass/ volume)Ordered By: Juany Bellamy on 01-06-2025 Potassium (Unsp spec) [Mass/Vol] 3.7 mmol/L 3.3-5.1 [facility] Protein/Creatinine (U) [Mass ratio]Ordered By: Juany Bellamy on 01-06-2025 Urine Protein/Creatinine Ratio 154 mg/g CRE 0-200 [facility] RBC Auto (Bld) [#/Vol]Ordere d By: Juany Bellamy on 01-06-2025 RBC (Bld) [#/Vol] 2.99 10*6/uL Low 4.6-6.2 [facility] Random urine creatinine amanda urement (mass/volume)Ordered By: Juany Bellamy on 01-06-2025 Creatinine Unsp time (U) [Mass/Vol] 52.20 mg/dL 39.00-259. 00 [facility] Serum creatinine measurement (mass/volume)Ordered By: Juany Bellamy on 01-06-2025 Creatinine [Mass/Vol] 1.74 mg/dL High 0.70-1.20 [facility] Serum glucose measurement (m ass/volume)Ordered By: Juany Bellamy on 01-06-2025 Glucose [Mass/Vol] 110 mg/dL High 70-99 [facility] Serum or plasma albumin amanda urement (mass/volume)Ordered By: Juany Bellamy on 01-06-2025 Albumin [Mass/Vol] 3.7 g/dL 3.4-4.8 [facility] Serum or plasma calcium amanda urement (mass/volume)Ordered By: Juany Bellamy on 01-06-2025 Calcium [Mass/Vol] 8.8 mg/dL 7.6-11.0 [facility] Serum or plasma urea nitroge n measurement (mass/volume)Ordered By: Juany Bellamy on 01-06-2025 Urea nitrogen [Mass/Vol] 21 mg/dL High 4-19 [facility] Serum phosphorus measurement Ordered By: Juany Bellamy on 01-06-2025 Phosphorus Level 3.4 mg/dL 2.7-4.5 [facility] Sodium levelOrdered By: Brian Bellamy on 01-06-2025 Sodium [Moles/Vol] 140 mmol/L 133-145 [facility] Urine protein measurement (m ass/volume)Ordered By: Juany Bellamy on 01-06-2025 Protein (U) [Mass/Vol] 8.0 mg/dL 0.0-12.0 [facility] Urine protein/creatinine mas s ratioOrdered By: Juany Bellamy on 01-06-2025 Protein/Creatinine (U) [Mass ratio] 154 mg/g CRE 0-200 [facility] White blood cell (WBC) count Ordered By: Juany Bellamy on 01-06-2025 WBC (Bld) [#/Vol] 7.3 10*3/uL 4.4-11.0 [facility] Diagnostic total prostate sp ecific antigen (PSA) measurementOrdered By: Surinder Larson on 12-25-2024 Prostate Specific Antigen Total 0.06 ng/mL 0.00-4.00 [facility] Comment on above: This test was [...] specific antigen (PSA) measurement 0.06 ng/mL 0.00-4.00 [facility] Cardiovascular stress test r eportOrdered By: Clifford Cordero on 12-10-2024 Study report [facility] Work Phone: [phone] Absolute lymphocyte countOrd ered By: Jayme Yang on 10-26-2024 Lymphocytes Auto (Unsp spec) [#/Vol] 1.20 10*3/uL 0.83-4.51 [facility] Absolute neutrophil countOrd ered By: Jayme Yang on 10-26-2024 Neutrophils (Bld) [#/Vol] 1.9 10*3/uL Low 2.0-7.7 [facility] Absolute neutrophil count 1.9 X10^3/uL Low 2.0-7.7 [facility] Automated lymphocyte count a s percentage of total leukocytesOrdered By: Jayme Yang on 10-26-2024 Lymphocytes/100 WBC Auto (Unsp spec) 34.3 % 19-41 [facility] Basophil percentageOrdered B y: Jayme Yang on 10-26-2024 Basophils/100 WBC (Bld) 0.3 % 0-1 [facility] Basophil percentage 0.3 % 0-1 [facility] Eosinophil percentageOrdered By: Jayme Yang on 10-26-2024 Eosinophils/100 WBC (Bld) 0.9 % 0-5 [facility] Eosinophil percentage 0.9 % 0-5 [facility] Erythrocyte distribution wid th (RBC) [Entitic vol]Ordered By: Jayme Yang on 10-26-2024 Erythrocyte distribution width standard deviation 51.6 fl High 35.1-43.9 [facility] Erythrocyte distribution wid th (RBC) [Ratio]Ordered By: Jayme Yang on 10-26-2024 Erythrocyte distribution width ratio 14.9 % High 11.6-14.6 [facility] Erythrocyte distribution width (RBC) [Entitic vol] 51.6 fL High 35.1-43.9 [facility] Erythrocyte distribution wid th ratioOrdered By: Jayme Yang on 10-26-2024 Erythrocyte distribution width (RBC) [Ratio] 14.9 % High 11.6-14.6 [facility] Erythrocyte distribution wid th standard deviationOrdered By: Jayme Yang on 10-26-2024 Erythrocyte distribution width (RBC) [Ratio] 51.6 fl High 35.1-43.9 [facility] Hematocrit Auto (Bld) [Volum e fraction]Ordered By: Jayme Yang on 10-26-2024 Hematocrit (Bld) [Volume fraction] 29.0 % Low 40-54 [facility] Automated blood hematocrit (percentage) 29.0 % Low 40-54 [facility] Hemoglobin measurementOrdere d By: Jayme Yang on 10-26-2024 Hemoglobin (Bld) [Mass/Vol] 9.6 g/dL Low 13.0-16.5 [facility] Hemoglobin measurement 9.6 g/dL Low 13.0-16.5 [facility] Immature granulocytes/100 WB C Auto (Bld)Ordered By: Jayme Yang on 10-26-2024 Immature granulocytes/100 WBC (Bld) 0.600 % 0.0-0.9 [facility] Comment on above: IG% - Immature Granu locytes (promyelocytes, myelocytes and metamyelocytes) > 1% indicates that a LEFT SHIFT is Present. Automated immature granulocyte percentage 0.600 % 0.0-0.9 [facility] Lymphocytes Auto (Unsp spec) [#/Vol]Ordered By: Jayme Yang on 10-26-2024 Lymphocytes (Bld) [#/Vol] 1.20 10*3/uL 0.83-4.51 [facility] Absolute lymphocyte count 1.20 X10^3/uL 0.83-4.51 [facility] Lymphocytes/100 WBC Auto (Un sp spec)Ordered By: Jayme Yang on 10-26-2024 Lymphocytes/100 WBC (Bld) 34.3 % [facility] Automated lymphocyte count as percentage of total leukocytes 34.3 % - [facility] MCV (RBC) [Entitic vol]Order ed By: Jayme Yang on 10-26-2024 MCV (mean corpuscular volume) determination 93.9 fL 80-94 [facility] MCV (mean corpuscular volume ) determinationOrdered By: Jayme Yang on 10-26-2024 MCV (RBC) [Entitic vol] 93.9 fL 80-94 [facility] Mean corpuscular hemoglobin (MCH) determinationOrdered By: Jayme Yang on 10-26-2024 MCH (RBC) [Entitic mass] 31.1 pg 27.0-32.0 [facility] Mean corpuscular hemoglobin (MCH) determination 31.1 pg 27.0-32.0 [facility] Mean corpuscular hemoglobin concentration (MCHC) determinationOrdered By: Jayme Yang on 10-26-2024 MCHC (RBC) [Mass/Vol] 33.1 g/dL 32-36 [facility] Mean corpuscular hemoglobin concentration (MCHC) determination 33.1 g/dL -36 [facility] Mean platelet volume determi nationOrdered By: Jayme Yang on 10-26-2024 Platelet mean volume (Bld) [Entitic vol] 11.6 fL 6.2-12.0 [facility] Mean platelet volume determination 11.6 fl 6.2-12.0 [facility] Monocyte percentageOrdered B y: Jayme Yang on 10-26-2024 Monocytes/100 WBC (Bld) 10.9 % High 0-10 [facility] Monocyte percentage 10.9 % High 0-10 [facility] Neutrophil percentageOrdered By: Jayme Yang on 10-26-2024 Neutrophils/100 WBC (Bld) 53.0 % 47-70 [facility] Neutrophil percentage 53.0 % 47-70 [facility] Nucleated red blood cell per centageOrdered By: Jayme Yang on 10-26-2024 Nucleated RBC/100 WBC (Bld) [Ratio] 0 % 0-5 [facility] Nucleated red blood cell percentage 0 % 0-5 [facility] Platelet countOrdered By: Adry Yang on 10-26-2024 Platelets (Bld) [#/Vol] 121 10*3/uL Low 150-450 [facility] Platelet count 121 K/mm3 Low 150-450 [facility] RBC Auto (Bld) [#/Vol]Ordere d By: Jayme Yang on 10-26-2024 RBC (Bld) [#/Vol] 3.09 10*6/uL Low 4.6-6.2 [facility] Automated blood erythrocyte count 3.09 M/mm3 Low 4.6-6.2 [facility] White blood cell (WBC) count Ordered By: Jayme Yang on 10-26-2024 WBC (Bld) [#/Vol] 3.5 10*3/uL Low 4.4-11.0 [facility] White blood cell (WBC) count 3.5 K/mm3 Low 4.4-11.0 [facility] Diagnostic total prostate sp ecific antigen (PSA) measurementOrdered By: Keo Montemayor on 10-05-2024 Prostate Specific Antigen Total 0.08 ng/mL 0.0-4.0 [facility] Comment on above: This test was perfor med using the T[facility]A [facility] method [facility]. Values obtained with differentassay methods cannot be used interchangably.When changing PSA assays in the course of monitoring apatient, additional sequential testing should be carriedout to confirm baseline values. Diagnostic total prostate specific antigen (PSA) measurement 0.08 ng/mL 0.0-4.0 [facility] ALP [Catalytic activity/Vol] Ordered By: Marycruz Yen on 09-12-2024 Serum or plasma alkaline phosphatase measurement 48 U/L 45-117 [facility] ALT [Catalytic activity/Vol] Ordered By: Marycruz Yen on 09-12-2024 Serum or plasma alanine aminotransferase (ALT) measurement 32 U/L 16-61 [facility] Absolute neutrophil countOrd ered By: Marycruz Yen on 09-12-2024 Absolute neutrophil count 1.7 X10^3/uL Low 2.0-7.7 [facility] Albumin [Mass/Vol]Ordered By : Marycruz Yen on 09-12-2024 Serum or plasma albumin measurement (mass/volume) 3.5 g/dL 3.2-5.0 [facility] Albumin to globulin ratioOrd ered By: Marycruz Yen on 09-12-2024 Albumin to globulin ratio 1.1 RATIO 0.9-2.4 [facility] Basophil percentageOrdered B y: Marycruz Yen on 09-12-2024 Basophil percentage 0.3 % 0-1 [facility] Bilirubin, totalOrdered By: Marycruz Yen on 09-12-2024 Bilirubin, total 0.40 mg/dL 0.20-1.00 [facility] Blood urea nitrogen (BUN)/cr eatinine ratioOrdered By: Marycruz Yen on 09-12-2024 Blood urea nitrogen (BUN)/creatinine ratio 11.7 RATIO 10-20 [facility] Calcium [Mass/Vol]Ordered By : Marycruz Yen on 09-12-2024 Serum or plasma calcium measurement (mass/volume) 9.1 mg/dL 8.5-10.1 [facility] Carbon dioxide measurementOr dered By: Marycruz Yen on 09-12-2024 Carbon dioxide measurement 32.0 mmol/L 21.0-32.0 [facility] Chloride measurementOrdered By: Marycruz Yen on 09-12-2024 Chloride measurement 108 mmol/L High 98-107 [facility] Creatinine [Mass/Vol]Ordered By: Marycruz Yen on 09-12-2024 Serum or plasma creatinine measurement (mass/volume) 1.37 mg/dL High 0.70-1.30 [facility] Eosinophil percentageOrdered By: Marycruz Yen on 09-12-2024 Eosinophil percentage 1.7 % 0-5 [facility] Erythrocyte distribution wid th (RBC) [Entitic vol]Ordered By: Marycruz Yen on 09-12-2024 Erythrocyte distribution width standard deviation 53.8 fl High 35.1-43.9 [facility] Erythrocyte distribution wid th (RBC) [Ratio]Ordered By: Marycruz Yen on 09-12-2024 Erythrocyte distribution width ratio 15.3 % High 11.6-14.6 [facility] Estimated glomerular filtrat ion rate (GFR) AmericanOrdered By: Marycruz Yen on 09-12-2024 Estimated glomerular filtration rate (GFR) 64 mL/min >60 [facility] Glomerular filtration rate ( GFR) estimationOrdered By: Marycruz Yen on 09-12-2024 Glomerular filtration rate (GFR) estimation 53 mL/min Low >60 [facility] Glucose measurementOrdered B y: Marycruz Yen on 09-12-2024 Glucose measurement 116 mg/dL High 74-106 [facility] Hematocrit Auto (Bld) [Volum e fraction]Ordered By: Marycruz Yen on 09-12-2024 Automated blood hematocrit (percentage) 32.1 % Low 40-54 [facility] Hemoglobin measurementOrdere d By: Marycruz Yen on 09-12-2024 Hemoglobin measurement 10.5 g/dL Low 13.0-16.5 [facility] Immature granulocytes/100 WB C Auto (Bld)Ordered By: Marycruz Yen on 09-12-2024 Automated immature granulocyte percentage 0.300 % 0.0-0.9 [facility] Lymphocytes Auto (Unsp spec) [#/Vol]Ordered By: Marycruz Yen on 09-12-2024 Absolute lymphocyte count 1.42 X10^3/uL 0.83-4.51 [facility] Lymphocytes/100 WBC Auto (Un sp spec)Ordered By: Marycruz Yen on 09-12-2024 Automated lymphocyte count as percentage of total leukocytes 40.7 % 19-41 [facility] MCV (RBC) [Entitic vol]Order ed By: Marycruz Yen on 09-12-2024 MCV (mean corpuscular volume) determination 95.3 fL High 80-94 [facility] Mean corpuscular hemoglobin (MCH) determinationOrdered By: Marycruz Yen on 09-12-2024 Mean corpuscular hemoglobin (MCH) determination 31.2 pg 27.0-32.0 [facility] Mean corpuscular hemoglobin concentration (MCHC) determinationOrdered By: Marycruz Yen on 09-12-2024 Mean corpuscular hemoglobin concentration (MCHC) determination 32.7 g/dL 32-36 [facility] Mean platelet volume determi nationOrdered By: Marycruz Yen on 09-12-2024 Mean platelet volume determination 10.8 fl 6.2-12.0 [facility] Monocyte percentageOrdered B y: Marycruz Yen on 09-12-2024 Monocyte percentage 8.3 % 0-10 [facility] Neutrophil percentageOrdered By: Marycruz Yen on 09-12-2024 Neutrophil percentage 48.7 % 47-70 [facility] No Panel InformationOrdered By: Marycruz Yen on 09-12-2024 19 U/L 15-37 [facility] Nucleated red blood cell per centageOrdered By: Marycruz Yen on 09-12-2024 Nucleated red blood cell percentage 0 % 0-5 [facility] Platelet countOrdered By: Adry Yen on 09-12-2024 Platelet count 141 K/mm3 Low 150-450 [facility] Potassium measurementOrdered By: Marycruz Yen on 09-12-2024 Potassium measurement 3.6 mmol/L 3.5-5.1 [facility] RBC Auto (Bld) [#/Vol]Ordere d By: Marycruz Yen on 09-12-2024 Automated blood erythrocyte count 3.37 M/mm3 Low 4.6-6.2 [facility] Serum anion gap measurementO rdered By: Marycruz Yen on 09-12-2024 Serum anion gap measurement 3 Low 5-15 [facility] Serum globulin measurementOr dered By: Marycruz Yen on 09-12-2024 Serum globulin measurement 3.2 g/dL 2.2-4.2 [facility] Sodium levelOrdered By: Anival Yen on 09-12-2024 Sodium level 143 mmol/L 136-145 [facility] Total proteinOrdered By: Jamir Yen on 09-12-2024 Total protein 6.7 g/dL 6.4-8.2 [facility] Urate [Mass/Vol]Ordered By: Marycruz Yen on 09-12-2024 Serum or plasma uric acid measurement (mass/volume) 5.2 mg/dL 3.5-7.2 [facility] Urea nitrogen [Mass/Vol]Orde red By: Marycruz Yen on 09-12-2024 Serum or plasma urea nitrogen measurement (mass/volume) 16 mg/dL 7-18 [facility] White blood cell (WBC) count Ordered By: Marycruz Yen on 09-12-2024 White blood cell (WBC) count 3.5 K/mm3 Low 4.4-11.0 [facility] [facility] Absolute lymphocyte countOrd ered By: Marycruz Yen on 01-10-2024 Lymphocytes Auto (Unsp spec) [#/Vol] 1.47 10*3/uL 0.83-4.51 [facility] Automated lymphocyte count a s percentage of total leukocytesOrdered By: Marycruz Yen on 01-10-2024 Lymphocytes/100 WBC Auto (Unsp spec) 19.7 % 19-41 [facility] Basophil percentageOrdered B y: Marycruz Yen on 01-10-2024 Basophil percentage 12.1 g/dL 13.0-16.5 [facility] Basophil percentage 119 mg/dL 74-106 [facility] Basophil percentage 7.3 g/dL 6.4-8.2 [facility] Basophil percentage 0.40 mg/dL 0.20-1.00 [facility] Basophil percentage 139 mmol/L 136-145 [facility] Basophil percentage 3.5 mmol/L 3.5-5.1 [facility] Basophil percentage 107 mmol/L 98-107 [facility] Basophils (Bld) [#/Vol] 7.5 10*3/uL 4.4-11.0 [facility] Basophils (Bld) [#/Vol] 5.1 10*3/uL 2.0-7.7 [facility] Basophils/100 WBC (Bld) 68.5 % 47-70 [facility] Basophils/100 WBC (Bld) 9.6 % 0-10 [facility] Basophils/100 WBC (Bld) 1.6 % 0-5 [facility] Basophils/100 WBC (Bld) 0.3 % 0-1 [facility] Determination of erythrocyte mean corpuscular volume (MCV)Ordered By: Marycruz Yen on 01-10-2024 MCV (RBC) [Entitic vol] 94.1 fL 80-94 [facility] Erythrocyte distribution wid th ratioOrdered By: Marycruz Yen on 01-10-2024 Erythrocyte distribution width (RBC) [Ratio] 14.2 % 11.6-14.6 [facility] Erythrocyte distribution wid th standard deviationOrdered By: Marycruz Yen on 01-10-2024 Erythrocyte distribution width (RBC) [Entitic vol] 48.6 fL 35.1-43.9 [facility] Hematocrit Auto (Bld) [Volum e fraction]Ordered By: Marycruz Yen on 01-10-2024 Hematocrit (Bld) [Volume fraction] 36.6 % 40-54 [facility] Immature granulocytes/100 WB C Auto (Bld)Ordered By: Marycruz Yen on 01-10-2024 Immature granulocytes/100 WBC (Bld) 0.300 % 0.0-0.9 [facility] No Panel InformationOrdered By: Marycruz Farshad on 01-10-2024 31.1 pg 27.0-32.0 [facility] 33.1 g/dL 32-36 [facility] 185 K/mm3 150-450 [facility] 11.9 fl 6.2-12.0 [facility] 0 % 0-5 [facility] 46 mL/min >60 [facility] 55 mL/min >60 [facility] 12.7 RATIO 10-20 [facility] 3.7 g/dL 2.2-4.2 [facility] 1.0 RATIO 0.9-2.4 [facility] 58 U/L 45-117 [facility] 41 U/L 16-61 [facility] 29.0 mmol/L 21.0-32.0 [facility] RBC Auto (Bld) [#/Vol]Ordere d By: Marycruz Yen on 01-10-2024 RBC (Bld) [#/Vol] 3.89 10*6/uL 4.6-6.2 [facility] Serum or plasma calcium amanda urement (mass/volume)Ordered By: Marycruz Yen on 01-10-2024 Calcium [Mass/Vol] 9.1 mg/dL 8.5-10.1 [facility] Serum or plasma creatinine m easurement (mass/volume)Ordered By: Marycruz Yen on 01-10-2024 Creatinine [Mass/Vol] 1.57 mg/dL 0.70-1.30 [facility] Serum or plasma urea nitroge n measurement (mass/volume)Ordered By: Marycruzjulisa Yen on 01-10-2024 Urea nitrogen [Mass/Vol] 20 mg/dL 7-18 [facility] Serum or plasma uric acid me asurement (mass/volume)Ordered By: Marycruz Yen on 01-10-2024 Urate [Mass/Vol] 5.8 mg/dL 3.5-7.2 [facility] Thin prep Papanicolaou smear with manual screeningOrdered By: Marycruz Yen on 01-10-2024 Thin prep Papanicolaou smear with manual screening 3.6 g/dL 3.2-5.0 [facility] Thin prep Papanicolaou smear with manual screening 36 U/L 15-37 [facility] Thin prep Papanicolaou smear with manual screening 3 5-15 [facility] Basophil percentageOrdered B y: Suzie Ashton on 12-11-2023 Basophil percentage 0.07 ng/mL 0.0-4.0 [facility] Serum or plasma thyroid stim ulating hormone (TSH) measurement (units/volume)Ordered By: Suzie Ashton on 12-11-2023 TSH Qn 5.13 uIU/mL 0.358-3.74 [facility] Basophil percentageOrdered B y: Js Lee on 11-13-2023 Basophil percentage 139 mg/dL 74-106 [facility] Basophil percentage 146 mmol/L 136-145 [facility] Basophil percentage 3.5 mmol/L 3.5-5.1 [facility] Basophil percentage 111 mmol/L 98-107 [facility] No Panel InformationOrdered By: Js Lee on 11-13-2023 61 mL/min >60 [facility] 74 mL/min >60 [facility] 55.64 ml/min [facility] 17.4 RATIO 10-20 [facility] 31.0 mmol/L 21.0-32.0 [facility] Serum or plasma calcium amanda urement (mass/volume)Ordered By: Js Lee on 11-13-2023 Calcium [Mass/Vol] 8.9 mg/dL 8.5-10.1 [facility] Serum or plasma creatinine m easurement (mass/volume)Ordered By: Js Lee on 11-13-2023 Creatinine [Mass/Vol] 1.21 mg/dL 0.70-1.30 [facility] Serum or plasma urea nitroge n measurement (mass/volume)Ordered By: Js Lee on 11-13-2023 Urea nitrogen [Mass/Vol] 21 mg/dL 7-18 [facility] Thin prep Papanicolaou smear with manual screeningOrdered By: Js Lee on 11-13-2023 Thin prep Papanicolaou smear with manual screening 4 5-15 [facility] Basophil percentageOrdered B y: Js Lee on 11-12-2023 Basophil percentage 11.8 g/dL 13.0-16.5 [facility] Basophils (Bld) [#/Vol] 5.8 10*3/uL 4.4-11.0 [facility] Determination of erythrocyte mean corpuscular volume (MCV)Ordered By: Js Lee on 11-12-2023 MCV (RBC) [Entitic vol] 94.7 fL 80-94 [facility] Erythrocyte distribution wid th ratioOrdered By: Js Lee on 11-12-2023 Erythrocyte distribution width (RBC) [Ratio] 15.7 % 11.6-14.6 [facility] Erythrocyte distribution wid th standard deviationOrdered By: Js Lee on 11-12-2023 Erythrocyte distribution width (RBC) [Entitic vol] 54.9 fL 35.1-43.9 [facility] Hematocrit Auto (Bld) [Volum e fraction]Ordered By: Js Lee on 11-12-2023 Hematocrit (Bld) [Volume fraction] 36.0 % 40-54 [facility] No Panel InformationOrdered By: Js Lee on 11-12-2023 31.1 pg 27.0-32.0 [facility] 32.8 g/dL 32-36 [facility] 166 K/mm3 150-450 [facility] 11.4 fl 6.2-12.0 [facility] No Panel InformationOrdered By: Laureano Jennings on 11-12-2023 146 pg/mL 3.0-78.0 [facility] RBC Auto (Bld) [#/Vol]Ordere d By: Js Lee on 11-12-2023 RBC (Bld) [#/Vol] 3.80 10*6/uL 4.6-6.2 [facility] Absolute lymphocyte countOrd ered By: Ana Maria Barnhart on 11-11-2023 Lymphocytes Auto (Unsp spec) [#/Vol] 2.28 10*3/uL 0.83-4.51 [facility] Automated lymphocyte count a s percentage of total leukocytesOrdered By: Ana Maria Barnhart on 11-11-2023 Lymphocytes/100 WBC Auto (Unsp spec) 32.6 % 19-41 [facility] Basophil percentageOrdered B y: Laureano Jennings on 11-11-2023 Basophil percentage 148 mg/dL <200 [facility] Basophil percentage 255 mg/dL <199 [facility] Basophil percentageOrdered B y: Ana Maria Barnhart on 11-11-2023 Basophil percentage 12.5 g/dL 13.0-16.5 [facility] Basophil percentage 221 mg/dL 74-106 [facility] Basophil percentage 144 mmol/L 136-145 [facility] Basophil percentage 3.4 mmol/L 3.5-5.1 [facility] Basophil percentage 111 mmol/L 98-107 [facility] Basophils (Bld) [#/Vol] 7.0 10*3/uL 4.4-11.0 [facility] Basophils (Bld) [#/Vol] 3.7 10*3/uL 2.0-7.7 [facility] Basophils/100 WBC (Bld) 52.3 % 47-70 [facility] Basophils/100 WBC (Bld) 11.6 % 0-10 [facility] Basophils/100 WBC (Bld) 2.9 % 0-5 [facility] Basophils/100 WBC (Bld) 0.3 % 0-1 [facility] Determination of erythrocyte mean corpuscular volume (MCV)Ordered By: Ana Maria Barnhart on 11-11-2023 MCV (RBC) [Entitic vol] 94.4 fL 80-94 [facility] Erythrocyte distribution wid th ratioOrdered By: Ana Maria Barnhart on 11-11-2023 Erythrocyte distribution width (RBC) [Ratio] 15.3 % 11.6-14.6 [facility] Erythrocyte distribution wid th standard deviationOrdered By: Ana Maria Barnhart on 11-11-2023 Erythrocyte distribution width (RBC) [Entitic vol] 53.4 fL 35.1-43.9 [facility] Hematocrit Auto (Bld) [Volum e fraction]Ordered By: Ana Maria Barnhart on 11-11-2023 Hematocrit (Bld) [Volume fraction] 38.6 % 40-54 [facility] Immature granulocytes/100 WB C Auto (Bld)Ordered By: Ana Maria Barnhart on 11-11-2023 Immature granulocytes/100 WBC (Bld) 0.300 % 0.0-0.9 [facility] No Panel InformationOrdered By: Laureano Jennings on 11-11-2023 33 mg/dL >40 [facility] 64 mg/dL 0-130 [facility] 51 mg/dL 5-40 [facility] No Panel InformationOrdered By: Ana Maria Barnhart on 11-11-2023 30.6 pg 27.0-32.0 [facility] 32.4 g/dL 32-36 [facility] 155 K/mm3 150-450 [facility] 11.2 fl 6.2-12.0 [facility] 0 % 0-5 [facility] 51 mL/min >60 [facility] 61 mL/min >60 [facility] 47.81 ml/min [facility] 11.2 RATIO 10-20 [facility] 1.9 mg/dL 1.6-2.6 [facility] 28.0 mmol/L 21.0-32.0 [facility] RBC Auto (Bld) [#/Vol]Ordere d By: Ana Maria Barnhart on 11-11-2023 RBC (Bld) [#/Vol] 4.09 10*6/uL 4.6-6.2 [facility] Serum or plasma calcium amanda urement (mass/volume)Ordered By: Ana Maria Barnhart on 11-11-2023 Calcium [Mass/Vol] 9.1 mg/dL 8.5-10.1 [facility] Serum or plasma cardiac trop onin I panel by high sensitivity methodOrdered By: Ana Maria Barnhart on 11-11-2023 Tropinin I.cardiac panel High sensitivity method 23 pg/mL 3.0-78.0 [facility] Serum or plasma creatinine m easurement (mass/volume)Ordered By: Ana Maria Barnhart on 11-11-2023 Creatinine [Mass/Vol] 1.43 mg/dL 0.70-1.30 [facility] Serum or plasma urea nitroge n measurement (mass/volume)Ordered By: Ana Maria Barnhart on 11-11-2023 Urea nitrogen [Mass/Vol] 16 mg/dL 7-18 [facility] Thin prep Papanicolaou smear with manual screeningOrdered By: Ana Maria Barnhart on 11-11-2023 Thin prep Papanicolaou smear with manual screening 5 5-15 [facility] Basophil percentageOrdered B y: Keo Montemayor on 11-08-2023 Basophil percentage 0 SEEN /hpf 0-5 [facility] Bilirubin Test strip Ql (U)O rdered By: Keo Montemayor on 11-08-2023 Bilirubin Ql (U) Negative Negative [facility] Ketones Test strip Ql (U)Ord ered By: Keo Montemayor on 11-08-2023 Ketones Ql (U) Negative Negative [facility] Mucus LM Ql (Urine sed)Order ed By: Keo Montemayor on 11-08-2023 Mucus Ql (Urine sed) RARE /hpf [facility] Nitrite Test strip Ql (U)Ord ered By: Keo Montemayor on 11-08-2023 Nitrite Ql (U) Negative Negative [facility] No Panel InformationOrdered By: Keo Montemayor on 11-08-2023 10-25 SEEN /hpf 0-5 [facility] Protein Test strip Ql (U)Ord ered By: Keo Montemayor on 11-08-2023 Protein Ql (U) 100 mg/dl Negative [facility] Squamous epithelial cells de tection in urine sediment by light microscopyOrdered By: Keo Montemayor on 11-08-2023 Epithelial cells.squamous LM Ql (Urine sed) 0-5 SEEN /hpf 0-5 [facility] Urine blood detectionOrdered By: Keo Montemayor on 11-08-2023 RBC Ql (U) 25 /ul Negative [facility] Urine clarityOrdered By: Magdi Montemayor on 11-08-2023 Clarity (U) Sl. Cloudy Clear [facility] Urine color determinationOrd ered By: Keo Montemayor on 11-08-2023 Color (U) Yellow Yellow [facility] Urine glucose detectionOrder ed By: Keo Montemayor on 11-08-2023 Glucose Ql (U) Normal mg/dl Normal [facility] Urine leukocyte esterase det ection by dipstickOrdered By: Keo Montemayor on 11-08-2023 Leukocyte esterase Test strip Ql (U) Negative Negative [facility] Urine pHOrdered By: Keo myers on 11-08-2023 pH (U) 6.0 [pH] 5.0 - 8.0 [facility] Urine sediment bacteria coun t by microscopy (number/high power field)Ordered By: Keo Montemayor on 11-08-2023 Bacteria LM.HPF (Urine sed) [#/Area] RARE /hpf None Seen [facility] Urine specific gravity measu rementOrdered By: Keo Montemayor on 11-08-2023 Specific gravity (U) [Rel density] 1.015 1.002-1.03 0 [facility] Urine urobilinogen measureme ntOrdered By: Keo Montmeayor on 11-08-2023 Urobilinogen Ql (U) Normal mg/dl Normal [facility] Absolute lymphocyte countOrd ered By: Marycruz Yen on 10-16-2023 Lymphocytes Auto (Unsp spec) [#/Vol] 1.88 10*3/uL 0.83-4.51 [facility] Automated lymphocyte count a s percentage of total leukocytesOrdered By: Marycruz Yen on 10-16-2023 Lymphocytes/100 WBC Auto (Unsp spec) 37.8 % 19-41 [facility] Basophil percentageOrdered B y: Marycruz Yen on 10-16-2023 Basophil percentage 12.2 g/dL 13.0-16.5 [facility] Basophil percentage 119 mg/dL 74-106 [facility] Basophil percentage 7.4 g/dL 6.4-8.2 [facility] Basophil percentage 0.40 mg/dL 0.20-1.00 [facility] Basophil percentage 143 mmol/L 136-145 [facility] Basophil percentage 3.8 mmol/L 3.5-5.1 [facility] Basophil percentage 110 mmol/L 98-107 [facility] Basophils (Bld) [#/Vol] 5.0 10*3/uL 4.4-11.0 [facility] Basophils (Bld) [#/Vol] 2.1 10*3/uL 2.0-7.7 [facility] Basophils/100 WBC (Bld) 42.7 % 47-70 [facility] Basophils/100 WBC (Bld) 13.1 % 0-10 [facility] Basophils/100 WBC (Bld) 5.8 % 0-5 [facility] Basophils/100 WBC (Bld) 0.4 % 0-1 [facility] Determination of erythrocyte mean corpuscular volume (MCV)Ordered By: Marycruz Yen on 10-16-2023 MCV (RBC) [Entitic vol] 93.9 fL 80-94 [facility] Erythrocyte distribution wid th ratioOrdered By: Marycruz Farshad on 10-16-2023 Erythrocyte distribution width (RBC) [Ratio] 16.2 % 11.6-14.6 [facility] Erythrocyte distribution wid th standard deviationOrdered By: Marycruz Yen on 10-16-2023 Erythrocyte distribution width (RBC) [Entitic vol] 55.0 fL 35.1-43.9 [facility] Hematocrit Auto (Bld) [Volum e fraction]Ordered By: Marycruz Yen on 10-16-2023 Hematocrit (Bld) [Volume fraction] 36.7 % 40-54 [facility] Immature granulocytes/100 WB C Auto (Bld)Ordered By: Marycruz Yen on 10-16-2023 Immature granulocytes/100 WBC (Bld) 0.200 % 0.0-0.9 [facility] No Panel InformationOrdered By: Marycruz Yen on 10-16-2023 31.2 pg 27.0-32.0 [facility] 33.2 g/dL 32-36 [facility] 152 K/mm3 150-450 [facility] 0 % 0-5 [facility] 58 mL/min >60 [facility] 70 mL/min >60 [facility] 12.5 RATIO 10-20 [facility] 4.1 g/dL 2.2-4.2 [facility] 0.8 RATIO 0.9-2.4 [facility] 57 U/L 16-61 [facility] 28.0 mmol/L 21.0-32.0 [facility] Platelet mean volume Derrick-Ec ker (Bld) [Entitic vol]Ordered By: Marycruz Yen on 10-16-2023 Platelet mean volume (Bld) [Entitic vol] 10.4 fL 6.2-12.0 [facility] RBC Auto (Bld) [#/Vol]Ordere d By: Marycruz Yen on 10-16-2023 RBC (Bld) [#/Vol] 3.91 10*6/uL 4.6-6.2 [facility] Serum or plasma calcium amanda urement (mass/volume)Ordered By: Marycruz Yen on 10-16-2023 Calcium [Mass/Vol] 9.2 mg/dL 8.5-10.1 [facility] Serum or plasma creatinine m easurement (mass/volume)Ordered By: Marycruz Yen on 10-16-2023 Creatinine [Mass/Vol] 1.28 mg/dL 0.70-1.30 [facility] Serum or plasma urea nitroge n measurement (mass/volume)Ordered By: Marycruz Yen on 10-16-2023 Urea nitrogen [Mass/Vol] 16 mg/dL 7-18 [facility] Serum or plasma uric acid me asurement (mass/volume)Ordered By: Marycruz Yen on 10-16-2023 Urate [Mass/Vol] 4.3 mg/dL 3.5-7.2 [facility] Thin prep Papanicolaou smear with manual screeningOrdered By: Marycruz Yen on 10-16-2023 Thin prep Papanicolaou smear with manual screening 3.3 g/dL 3.2-5.0 [facility] Thin prep Papanicolaou smear with manual screening 39 U/L 15-37 [facility] Thin prep Papanicolaou smear with manual screening 5 5-15 [facility] Absolute lymphocyte countOrd ered By: Marycruz Yen on 09-27-2023 Lymphocytes Auto (Unsp spec) [#/Vol] 1.33 10*3/uL 0.83-4.51 [facility] Basophil percentageOrdered B y: Marycruz Yen on 09-27-2023 Basophil percentage 288 mg/dL 74-106 [facility] Basophil percentage 7.0 g/dL 6.4-8.2 [facility] Basophil percentage 0.40 mg/dL 0.20-1.00 [facility] Basophil percentage 139 mmol/L 136-145 [facility] Basophil percentage 3.6 mmol/L 3.5-5.1 [facility] Basophil percentage 105 mmol/L 98-107 [facility] Basophils (Bld) [#/Vol] 6.7 10*3/uL 4.4-11.0 [facility] Basophils (Bld) [#/Vol] 4.3 10*3/uL 2.0-7.7 [facility] Basophils/100 WBC (Bld) 64.9 % 47-70 [facility] Basophils/100 WBC (Bld) 0.9 % 0-5 [facility] Basophils/100 WBC (Bld) 0.1 % 0-1 [facility] Blood erythrocytes count (nu mber/volume)Ordered By: Marycruz Yen on 09-27-2023 RBC (Bld) [#/Vol] 3.97 10*6/uL 4.6-6.2 [facility] Blood hemoglobin measurement (mass/volume)Ordered By: Marycruz Yen on 09-27-2023 Hemoglobin (Bld) [Mass/Vol] 12.3 g/dL 13.0-16.5 [facility] Blood lymphocytes/100 leukoc ytesOrdered By: Marycruz Yen on 09-27-2023 Lymphocytes/100 WBC (Bld) 19.9 % 19-41 [facility] Blood monocytes/100 leukocyt esOrdered By: Marycruz Yen on 09-27-2023 Monocytes/100 WBC (Bld) 12.3 % 0-10 [facility] Blood platelet mean volumeOr dered By: Marycruz Yen on 09-27-2023 Platelet mean volume (Bld) [Entitic vol] 10.2 fL 6.2-12.0 [facility] Determination of erythrocyte mean corpuscular volume (MCV)Ordered By: Marycruz Yen on 09-27-2023 MCV (RBC) [Entitic vol] 91.9 fL 80-94 [facility] Hematocrit Auto (Bld) [Volum e fraction]Ordered By: Marycruz Yen on 09-27-2023 Hematocrit (Bld) [Volume fraction] 36.5 % 40-54 [facility] MCHC Auto (RBC) [Mass/Vol]Or dered By: Marycruz Yen on 09-27-2023 MCHC (RBC) [Mass/Vol] 33.7 g/dL 32-36 [facility] No Panel InformationOrdered By: Marycruz Yen on 09-27-2023 31.0 pg 27.0-32.0 [facility] 15.1 % 11.6-14.6 [facility] 50.6 fl 35.1-43.9 [facility] 1.900 % 0.0-0.9 [facility] 0.6 % 0-5 [facility] 45 mL/min >60 [facility] 54 mL/min >60 [facility] 15.6 RATIO 10-20 [facility] 4.1 g/dL 2.2-4.2 [facility] 65 U/L 45-117 [facility] 48 U/L 16-61 [facility] 28.0 mmol/L 21.0-32.0 [facility] Platelets bldOrdered By: Jamir Yen on 09-27-2023 Platelets (Bld) [#/Vol] 132 10*3/uL 150-450 [facility] Serum or plasma albumin amanda urement (mass/volume)Ordered By: Marycruz Yen on 09-27-2023 Albumin [Mass/Vol] 2.9 g/dL 3.2-5.0 [facility] Serum or plasma albumin/glob ulin mass ratioOrdered By: Marycruz Yen on 09-27-2023 Albumin/Globulin [Mass ratio] 0.7 {ratio} 0.9-2.4 [facility] Serum or plasma calcium amanda urement (mass/volume)Ordered By: Marycruz Yen on 09-27-2023 Calcium [Mass/Vol] 8.7 mg/dL 8.5-10.1 [facility] Serum or plasma creatinine m easurement (mass/volume)Ordered By: Marycruz Yen on 09-27-2023 Creatinine [Mass/Vol] 1.60 mg/dL 0.70-1.30 [facility] Serum or plasma urea nitroge n measurement (mass/volume)Ordered By: Marycruzjulisa Yen on 09-27-2023 Urea nitrogen [Mass/Vol] 25 mg/dL 7-18 [facility] Serum or plasma uric acid me asurement (mass/volume)Ordered By: Marycruz Yen on 09-27-2023 Urate [Mass/Vol] 5.3 mg/dL 3.5-7.2 [facility] Thin prep Papanicolaou smear with manual screeningOrdered By: Marycruz Yen on 09-27-2023 Thin prep Papanicolaou smear with manual screening 30 U/L 15-37 [facility] Thin prep Papanicolaou smear with manual screening 6 5-15 [facility] Absolute lymphocyte countOrd ered By: Boris Bojorquez on 09-24-2023 Lymphocytes Auto (Unsp spec) [#/Vol] 1.09 10*3/uL 0.83-4.51 [facility] Basophil percentageOrdered B y: Boris Bojorquez on 09-24-2023 Basophil percentage 261 mg/dL 74-106 [facility] Basophil percentage 140 mmol/L 136-145 [facility] Basophil percentage 3.8 mmol/L 3.5-5.1 [facility] Basophil percentage 107 mmol/L 98-107 [facility] Basophils (Bld) [#/Vol] 5.0 10*3/uL 4.4-11.0 [facility] Basophils (Bld) [#/Vol] 3.6 10*3/uL 2.0-7.7 [facility] Basophils/100 WBC (Bld) 71.5 % 47-70 [facility] Basophils/100 WBC (Bld) 0.0 % 0-5 [facility] Basophils/100 WBC (Bld) 0.2 % 0-1 [facility] Blood erythrocytes count (nu mber/volume)Ordered By: Boris Bojorquez on 09-24-2023 RBC (Bld) [#/Vol] 3.74 10*6/uL 4.6-6.2 [facility] Blood hemoglobin measurement (mass/volume)Ordered By: Boris Bojorquez on 09-24-2023 Hemoglobin (Bld) [Mass/Vol] 11.2 g/dL 13.0-16.5 [facility] Blood lymphocytes/100 leukoc ytesOrdered By: Boris Bojorquez on 09-24-2023 Lymphocytes/100 WBC (Bld) 21.9 % 19-41 [facility] Blood monocytes/100 leukocyt esOrdered By: Boris Bojorquez on 09-24-2023 Monocytes/100 WBC (Bld) 5.6 % 0-10 [facility] Blood platelet mean volumeOr dered By: Boris Bojorquez on 09-24-2023 Platelet mean volume (Bld) [Entitic vol] 10.7 fL 6.2-12.0 [facility] Determination of erythrocyte mean corpuscular volume (MCV)Ordered By: Boris Bojorquez on 09-24-2023 MCV (RBC) [Entitic vol] 93.6 fL 80-94 [facility] Glucose Glucometer (BldC) [M ass/Vol]Ordered By: Boris Bojorquez on 09-24-2023 Glucose [Mass/Vol] 242 mg/dL 74-106 [facility] Hematocrit Auto (Bld) [Volum e fraction]Ordered By: Boris Bojorquez on 09-24-2023 Hematocrit (Bld) [Volume fraction] 35.0 % 40-54 [facility] MCHC Auto (RBC) [Mass/Vol]Or dered By: Boris Bojorquez on 09-24-2023 MCHC (RBC) [Mass/Vol] 32.0 g/dL 32-36 [facility] No Panel InformationOrdered By: Boris Bojorquez on 09-24-2023 29.9 pg 27.0-32.0 [facility] 15.0 % 11.6-14.6 [facility] 51.7 fl 35.1-43.9 [facility] 0.800 % 0.0-0.9 [facility] 0 % 0-5 [facility] 46 mL/min >60 [facility] 56 mL/min >60 [facility] 36.13 ml/min [facility] 20.6 RATIO 10-20 [facility] 26.0 mmol/L 21.0-32.0 [facility] Platelets bldOrdered By: Didier Bojorquez on 09-24-2023 Platelets (Bld) [#/Vol] 124 10*3/uL 150-450 [facility] Serum or plasma calcium amanda urement (mass/volume)Ordered By: Boris Bojorquez on 09-24-2023 Calcium [Mass/Vol] 8.9 mg/dL 8.5-10.1 [facility] Serum or plasma creatinine m easurement (mass/volume)Ordered By: Boris Bojorquez on 09-24-2023 Creatinine [Mass/Vol] 1.55 mg/dL 0.70-1.30 [facility] Serum or plasma urea nitroge n measurement (mass/volume)Ordered By: Boris Bojorquez on 09-24-2023 Urea nitrogen [Mass/Vol] 32 mg/dL 7-18 [facility] Thin prep Papanicolaou smear with manual screeningOrdered By: Boris Bojorquez on 09-24-2023 Thin prep Papanicolaou smear with manual screening 7 5-15 [facility] Bacteria identified Respirat ory culture Nom (Unsp spec)Ordered By: Drake Mason on 09-20-2023 Microbial respiratory culture Pseudomonas aeruginosa [facility] Microbial respiratory culture Pseudomonas aeruginosa [facility] Basophil percentageOrdered B y: Jonathan Lopez on 09-20-2023 Basophil percentage 176 mg/dL 74-106 [facility] Basophil percentage 141 mmol/L 136-145 [facility] Basophil percentage 3.5 mmol/L 3.5-5.1 [facility] Basophil percentage 109 mmol/L 98-107 [facility] Basophils (Bld) [#/Vol] 5.8 10*3/uL 4.4-11.0 [facility] Blood erythrocytes count (nu mber/volume)Ordered By: Jonathan Lopez on 09-20-2023 RBC (Bld) [#/Vol] 3.72 10*6/uL 4.6-6.2 [facility] Blood hemoglobin measurement (mass/volume)Ordered By: Jonathan Lopez on 09-20-2023 Hemoglobin (Bld) [Mass/Vol] 11.3 g/dL 13.0-16.5 [facility] Blood platelet mean volumeOr dered By: Jonathan Lopez on 09-20-2023 Platelet mean volume (Bld) [Entitic vol] 10.6 fL 6.2-12.0 [facility] Determination of erythrocyte mean corpuscular volume (MCV)Ordered By: Jonathan Lopez on 09-20-2023 MCV (RBC) [Entitic vol] 90.9 fL 80-94 [facility] Gram stain for investigation of transfusion reactionOrdered By: Drake Mason on 09-20-2023 Microscopic observation Gram stain Nom (Unsp spec) [facility] Microscopic observation Gram stain Nom (Unsp spec) [facility] Hematocrit Auto (Bld) [Volum e fraction]Ordered By: Jonathan Lopez on 09-20-2023 Hematocrit (Bld) [Volume fraction] 33.8 % 40-54 [facility] MCHC Auto (RBC) [Mass/Vol]Or dered By: Jonathan Lopez on 09-20-2023 MCHC (RBC) [Mass/Vol] 33.4 g/dL 32-36 [facility] No Panel InformationOrdered By: Jonathan Lopez on 09-20-2023 30.4 pg 27.0-32.0 [facility] 15.1 % 11.6-14.6 [facility] 50.2 fl 35.1-43.9 [facility] 53 mL/min >60 [facility] 64 mL/min >60 [facility] 40.88 ml/min [facility] 11.7 RATIO 10-20 [facility] 27.0 mmol/L 21.0-32.0 [facility] Platelets bldOrdered By: Luke Lopez on 09-20-2023 Platelets (Bld) [#/Vol] 123 10*3/uL 150-450 [facility] RSV Ag EIAOrdered By: Jonathan campbell on 09-20-2023 RSV Ag Immune stain Ql (Tiss) [facility] Serum or plasma calcium amanda urement (mass/volume)Ordered By: Jonathan Lopez on 09-20-2023 Calcium [Mass/Vol] 8.7 mg/dL 8.5-10.1 [facility] Serum or plasma creatinine m easurement (mass/volume)Ordered By: Jonathan Lopez on 09-20-2023 Creatinine [Mass/Vol] 1.37 mg/dL 0.70-1.30 [facility] Serum or plasma urea nitroge n measurement (mass/volume)Ordered By: Jonathan Lopez on 09-20-2023 Urea nitrogen [Mass/Vol] 16 mg/dL 7-18 [facility] Thin prep Papanicolaou smear with manual screeningOrdered By: Jonathan Lopez on 09-20-2023 Thin prep Papanicolaou smear with manual screening 5 5-15 [facility] Urine Legionella pneumophila antigen detectionOrdered By: Drake Mason on 09-20-2023 L. pneumophila Ag Ql (U) [facility] L. pneumophila Ag Ql (U) [facility] Basophil percentageOrdered B y: Juany Bellamy on 09-16-2023 Basophil percentage 2.4 mg/dL 2.5-4.9 [facility] Basophil percentage 170 mg/dL 74-106 [facility] Basophil percentage 140 mmol/L 136-145 [facility] Basophil percentage 3.6 mmol/L 3.5-5.1 [facility] Basophil percentage 107 mmol/L 98-107 [facility] Chloride [Moles/Vol] 107 mmol/L 98-107 [facility] Glucose [Mass/Vol] 170 mg/dL 74-106 [facility] Comment on above: Fasting Glucose resu lt greater than or equal to 126 mg/dL suggests DIABETES MELLITUS per A.D.A. criteria. Potassium [Moles/Vol] 3.6 mmol/L 3.5-5.1 [facility] Sodium [Moles/Vol] 140 mmol/L 136-145 [facility] - Chemistry and C hemistry - challengeOrdered By: Juany Bellamy on 09-16-2023 CO2 [Moles/Vol] 27.0 mmol/L 21.0-32.0 [facility] Urea nitrogen/Creatinine [Mass ratio] 14.6 mg/mg 10-20 [facility] No Panel InformationOrdered By: Juany Bellamy on 09-16-2023 Estimated GFR (MDRD) Amer 69 mL/min >60 [facility] Comment on above: GFR Calc Estimated GFR (MDRD) Non-Af Amer 57 mL/min >60 [facility] Comment on above: Non- GFR Calc 57 mL/min >60 [facility] 69 mL/min >60 [facility] 14.6 RATIO 07-19 [facility] 27.0 mmol/L 21.0-32.0 [facility] Serum or plasma albumin amanda urement (mass/volume)Ordered By: Juany Bellamy on 09-16-2023 Albumin [Mass/Vol] 2.7 g/dL 3.2-5.0 [facility] Serum or plasma calcium amanda urement (mass/volume)Ordered By: Juany Bellamy on 09-16-2023 Calcium [Mass/Vol] 7.9 mg/dL 8.5-10.1 [facility] Serum or plasma creatinine m easurement (mass/volume)Ordered By: Juany Bellamy on 09-16-2023 Creatinine [Mass/Vol] 1.30 mg/dL 0.70-1.30 [facility] Comment on above: The validity of the calculated GFR & GFRAA in patients over 70 years has not been determined. Clinical correlation is essential. Serum or plasma urea nitroge n measurement (mass/volume)Ordered By: Juany Bellamy on 09-16-2023 Urea nitrogen [Mass/Vol] 19 mg/dL 04-16 [facility] Urine creatinine measurement (mass/volume)Ordered By: Juany Bellamy on 09-16-2023 Creatinine (U) [Mass/Vol] 111.00 mg/dL NO RANGE EST. [facility] Urine protein measurement (m ass/volume)Ordered By: Juany Bellamy on 09-16-2023 Protein (U) [Mass/Vol] 63.7 mg/dL 0.0-11.8 [facility] Urine protein/creatinine mas s ratioOrdered By: Juany Bellamy on 09-16-2023 Protein/Creatinine (U) [Mass ratio] 574 mg/g CRE 0-200 [facility] Absolute lymphocyte countOrd ered By: Laureano Lima on 09-05-2023 Lymphocytes Auto (Unsp spec) [#/Vol] 1.22 10*3/uL 0.83-4.51 [facility] Basophil percentageOrdered B y: Laureano Lima on 09-05-2023 Basophil percentage 4.8 mg/dL 2.5-4.9 [facility] Basophil percentage 199 mg/dL 74-106 [facility] Basophil percentage 139 mmol/L 136-145 [facility] Basophil percentage 3.7 mmol/L 3.5-5.1 [facility] Basophil percentage 105 mmol/L 98-107 [facility] Basophils (Bld) [#/Vol] 7.3 10*3/uL 4.4-11.0 [facility] Basophils (Bld) [#/Vol] 5.7 10*3/uL 2.0-7.7 [facility] Basophils/100 WBC (Bld) 0.1 % 0-1 [facility] Basophils/100 WBC (Bld) 77.9 % 47-70 [facility] Basophils/100 WBC (Bld) 0.0 % 0-5 [facility] Chloride [Moles/Vol] 105 mmol/L 98-107 [facility] Eosinophils/100 WBC (Bld) 0.0 % 0-5 [facility] Glucose [Mass/Vol] 199 mg/dL 74-106 [facility] Comment on above: Fasting Glucose resu lt greater than or equal to 126 mg/dL suggests DIABETES MELLITUS per A.D.A. criteria. Neutrophils (Bld) [#/Vol] 5.7 10*3/uL 2.0-7.7 [facility] Neutrophils/100 WBC (Bld) 77.9 % 47-70 [facility] Potassium [Moles/Vol] 3.7 mmol/L 3.5-5.1 [facility] Comment on above: Slight Hemolysis, Re sult may be falsely increased. Sodium [Moles/Vol] 139 mmol/L 136-145 [facility] WBC (Bld) [#/Vol] 7.3 10*3/uL 4.4-11.0 [facility] Blood erythrocytes count (nu mber/volume)Ordered By: Laureano Lima on 09-05-2023 RBC (Bld) [#/Vol] 4.22 10*6/uL 4.6-6.2 [facility] Blood hemoglobin measurement (mass/volume)Ordered By: Laureano Lima on 09-05-2023 Hemoglobin (Bld) [Mass/Vol] 12.7 g/dL 13.0-16.5 [facility] Blood lymphocytes/100 leukoc ytesOrdered By: Laureano Lima on 09-05-2023 Lymphocytes/100 WBC (Bld) 16.7 % 19-41 [facility] Blood monocytes/100 leukocyt esOrdered By: Laureano Lima on 09-05-2023 Monocytes/100 WBC (Bld) 4.6 % 0-10 [facility] Blood platelet mean volumeOr dered By: Laureano Lima on 09-05-2023 Platelet mean volume (Bld) [Entitic vol] 10.9 fL 6.2-12.0 [facility] Determination of erythrocyte mean corpuscular volume (MCV)Ordered By: Laureano Lima on 09-05-2023 MCV (RBC) [Entitic vol] 91.0 fL 80-94 [facility] Glucose Glucometer (dC) [M ass/Vol]Ordered By: Laureano Lima on 09-05-2023 Glucose [Mass/Vol] 188 mg/dL 74-106 [facility] Comment on above: MANAGEMENT OF PATIEN T CARE PER NURSING PROTOCOL Hematocrit Auto (Bld) [Volum e fraction]Ordered By: Laureano Lima on 09-05-2023 Hematocrit (Bld) [Volume fraction] 38.4 % 40-54 [facility] Laboratory - Chemistry and C hemistry - challengeOrdered By: Laureano Lima on 09-05-2023 CO2 [Moles/Vol] 27.0 mmol/L 21.0-32.0 [facility] Magnesium [Mass/Vol] 2.1 mg/dL 1.6-2.6 [facility] Comment on above: Slight Hemolysis, Re sult may be falsely increased. Urea nitrogen/Creatinine [Mass ratio] 23.4 mg/mg 10-20 [facility] Laboratory - Hematology and Cell countsOrdered By: Laureano Lima on 09-05-2023 Erythrocyte distribution width (RBC) [Entitic vol] 49.4 fL 35.1-43.9 [facility] Erythrocyte distribution width (RBC) [Ratio] 14.8 % 11.6-14.6 [facility] Immature granulocytes/100 WBC (Bld) 0.700 % 0.0-0.9 [facility] Comment on above: IG% - Immature Granu locytes (promyelocytes, myelocytes and metamyelocytes) > 1% indicates that a LEFT SHIFT is Present. MCH (RBC) [Entitic mass] 30.1 pg 27.0-32.0 [facility] Nucleated RBC/100 WBC (Bld) [Ratio] 0 % 0-5 [facility] MCHC Auto (RBC) [Mass/Vol]Or dered By: Laureano Lima on 09-05-2023 MCHC (RBC) [Mass/Vol] 33.1 g/dL 32-36 [facility] No Panel InformationOrdered By: Laureano Lima on 09-05-2023 Estimated Creatinine Clearance Calc 36.36 ml/min [facility] Estimated GFR (MDRD) Amer 56 mL/min >60 [facility] Comment on above: GFR Calc Estimated GFR (MDRD) Non-Af Amer 47 mL/min >60 [facility] Comment on above: Non- GFR Calc 30.1 pg 27.0-32.0 [facility] 14.8 % 11.6-14.6 [facility] 49.4 fl 35.1-43.9 [facility] 0.700 % 0.0-0.9 [facility] 0 % 0-5 [facility] 47 mL/min >60 [facility] 56 mL/min >60 [facility] 36.36 ml/min [facility] 23.4 RATIO 10-20 [facility] 2.1 mg/dL 1.6-2.6 [facility] 27.0 mmol/L 21.0-32.0 [facility] Platelets bldOrdered By: Linwood Lima on 09-05-2023 Platelets (Bld) [#/Vol] 192 10*3/uL 150-450 [facility] Serum or plasma calcium amanda urement (mass/volume)Ordered By: Laureano Lima on 09-05-2023 Calcium [Mass/Vol] 8.6 mg/dL 8.5-10.1 [facility] Serum or plasma creatinine m easurement (mass/volume)Ordered By: Laureano Lima on 09-05-2023 Creatinine [Mass/Vol] 1.54 mg/dL 0.70-1.30 [facility] Comment on above: The validity of the calculated GFR & GFRAA in patients over 70 years has not been determined. Clinical correlation is essential. Serum or plasma urea nitroge n measurement (mass/volume)Ordered By: Laureano Lima on 09-05-2023 Urea nitrogen [Mass/Vol] 36 mg/dL 7-18 [facility] Thin prep Papanicolaou smear with manual screeningOrdered By: Laureano Lima on 09-05-2023 Thin prep Papanicolaou smear with manual screening 7 5-15 [facility] Assessment of wrist artery p atency prior to arterial punctureOrdered By: Mauricio Soto on 09-04-2023 Arterial patency Wrist artery --pre arterial puncture Positive [facility] Base excessOrdered By: Margaret Soto on 09-04-2023 Base excess Calc (BldV) [Moles/Vol] 2 mmol/L -2-2 [facility] Basophil percentageOrdered B y: Mauricio Soto on 09-04-2023 Basophil percentage 26.1 mmol/L 22-26 [facility] Basophils/100 WBC (Bld) 89 % 95-99 [facility] CO2 (BldA) [Partial pressure ]Ordered By: Mauricio Soto on 09-04-2023 CO2 (Bld) [Partial pressure] 38.2 mm[Hg] 35-45 [facility] No Panel InformationOrdered By: Mauricio Soto on 09-04-2023 Blood Gas Oxygen Percent 21.0 [facility] Blood Gas Sample Site L Radial [facility] Blood Gas Specimen Type ART [facility] Blood Gas Total CO2 27 mmol/L [facility] Blood Gas Vent Mode Not entered [facility] Oxygen Delivery Device Room Air [facility] L Radial [facility] Not entered [facility] Room Air [facility] 21.0 [facility] 27 mmol/L [facility] Oxygen (BldA) [Partial press ure]Ordered By: Mauricio Soto on 09-04-2023 Oxygen (Bld) [Partial pressure] 55 mmHG 75-100 [facility] Whole blood hemoglobin A1c/t otal hemoglobin ratio (mass fraction)Ordered By: Laureano Jennings on 09-04-2023 HbA1c (Bld) [Mass fraction] 6.5 % 3.8-5.6 [facility] Comment on above: Normal < 5.7 % Predi abetic 5.7 - 6.4 % Diabetic >or= 6.5 % Please note range changes. pH measurementOrdered By: Zunilda Soto on 09-04-2023 pH (Unsp spec) 7.44 [pH] 7.35-7.45 [facility] Absolute lymphocyte countOrd ered By: Mauricio Soto on 09-03-2023 Lymphocytes Auto (Unsp spec) [#/Vol] 1.35 10*3/uL 0.83-4.51 [facility] Basophil percentageOrdered B y: Mauricio Soto on 09-03-2023 Basophils/100 WBC (Bld) 0.4 % 0-1 [facility] Chloride [Moles/Vol] 105 mmol/L 98-107 [facility] Eosinophils/100 WBC (Bld) 0.0 % 0-5 [facility] Glucose [Mass/Vol] 184 mg/dL 74-106 [facility] Comment on above: Fasting Glucose resu lt greater than or equal to 126 mg/dL suggests DIABETES MELLITUS per A.D.A. criteria. Neutrophils (Bld) [#/Vol] 3.2 10*3/uL 2.0-7.7 [facility] Neutrophils/100 WBC (Bld) 60.4 % 47-70 [facility] Potassium [Moles/Vol] 3.7 mmol/L 3.5-5.1 [facility] Sodium [Moles/Vol] 138 mmol/L 136-145 [facility] WBC (Bld) [#/Vol] 5.3 10*3/uL 4.4-11.0 [facility] Blood erythrocytes count (nu mber/volume)Ordered By: Mauricio Soto on 09-03-2023 RBC (Bld) [#/Vol] 4.25 10*6/uL 4.6-6.2 [facility] Blood hemoglobin measurement (mass/volume)Ordered By: Mauricio Soto on 09-03-2023 Hemoglobin (Bld) [Mass/Vol] 12.9 g/dL 13.0-16.5 [facility] Blood lymphocytes/100 leukoc ytesOrdered By: Mauricio Soto on 09-03-2023 Lymphocytes/100 WBC (Bld) 25.6 % 19-41 [facility] Blood monocytes/100 leukocyt esOrdered By: Mauricio Soto on 09-03-2023 Monocytes/100 WBC (Bld) 11.9 % 0-10 [facility] Blood platelet mean volumeOr dered By: Mauricio Soto on 09-03-2023 Platelet mean volume (Bld) [Entitic vol] 11.1 fL 6.2-12.0 [facility] Determination of erythrocyte mean corpuscular volume (MCV)Ordered By: Mauricio Soto on 09-03-2023 MCV (RBC) [Entitic vol] 92.0 fL 80-94 [facility] Hematocrit Auto (Bld) [Volum e fraction]Ordered By: Mauricio Soto on 09-03-2023 Hematocrit (Bld) [Volume fraction] 39.1 % 40-54 [facility] Influenza virus A and B and SARS-CoV-2 (COVID-19) Ag panel - Upper respiratory specimOrdered By: Mauricio Soto on 09-03-2023 SARS-CoV-2 & FLU Antigen (Rapid) SARS-CoV-2 (COVID 19) [facility] Influenza virus A and B and SARS-CoV-2 (COVID-19) Ag panel - Upper respiratory specim SARS-CoV-2 (COVID 19) [facility] Laboratory - Chemistry and C hemistry - challengeOrdered By: Mauricio Soto on 09-03-2023 CO2 [Moles/Vol] 26.0 mmol/L 21.0-32.0 [facility] Magnesium [Mass/Vol] 2.2 mg/dL 1.6-2.6 [facility] Natriuretic peptide B (Bld) [Mass/Vol] 65.2 pg/mL 0-100 [facility] Urea nitrogen/Creatinine [Mass ratio] 15.7 mg/mg 10-20 [facility] Laboratory - Hematology and Cell countsOrdered By: Mauricio Soto on 09-03-2023 Erythrocyte distribution width (RBC) [Entitic vol] 50.4 fL 35.1-43.9 [facility] Erythrocyte distribution width (RBC) [Ratio] 14.8 % 11.6-14.6 [facility] Immature granulocytes/100 WBC (Bld) 1.700 % 0.0-0.9 [facility] Comment on above: IG% - Immature Granu locytes (promyelocytes, myelocytes and metamyelocytes) > 1% indicates that a LEFT SHIFT is Present. MCH (RBC) [Entitic mass] 30.4 pg 27.0-32.0 [facility] Nucleated RBC/100 WBC (Bld) [Ratio] 0 % 0-5 [facility] MCHC Auto (RBC) [Mass/Vol]Or dered By: Mauricio Soto on 09-03-2023 MCHC (RBC) [Mass/Vol] 33.0 g/dL 32-36 [facility] No Panel InformationOrdered By: Mauricio Soto on 09-03-2023 Estimated Creatinine Clearance Calc 35.33 ml/min [facility] Estimated GFR (MDRD) Amer 57 mL/min >60 [facility] Comment on above: GFR Calc Estimated GFR (MDRD) Non-Af Amer 47 mL/min >60 [facility] Comment on above: Non- GFR Calc 65.2 pg/mL 0-100 [facility] Platelets bldOrdered By: Mina Soto on 09-03-2023 Platelets (Bld) [#/Vol] 191 10*3/uL 150-450 [facility] Serum or plasma calcium amanda urement (mass/volume)Ordered By: Mauricio Soto on 09-03-2023 Calcium [Mass/Vol] 8.8 mg/dL 8.5-10.1 [facility] Serum or plasma creatinine m easurement (mass/volume)Ordered By: Mauricio Soto on 09-03-2023 Creatinine [Mass/Vol] 1.53 mg/dL 0.70-1.30 [facility] Comment on above: The validity of the calculated GFR & GFRAA in patients over 70 years has not been determined. Clinical correlation is essential. Serum or plasma urea nitroge n measurement (mass/volume)Ordered By: Mauricio Soto on 09-03-2023 Urea nitrogen [Mass/Vol] 24 mg/dL 7-18 [facility] Thin prep Papanicolaou smear with manual screeningOrdered By: Mauricio Soto on 09-03-2023 Thin prep Papanicolaou smear with manual screening 7 5-15 [facility] Upper respiratory specimen i nfluenza A virus, influenza B virus, and severe acute resOrdered By: Mauricio Soto on 09-03-2023 Upper respiratory specimen influenza A virus, influenza B virus, and severe acute res SARS-CoV-2 (COVID 19) [facility] Basophil percentageOrdered B y: Keo Montemayor on 08-29-2023 Basophil percentage < 1.0 mg/dL 0.70-1.30 [facility] No Panel InformationOrdered By: Keo Montemayor on 08-29-2023 Bedside Estimated GFR (eGFR) > 60.0000 mL/min >60 [facility] > 60.0000 mL/min >60 [facility] Glucose Glucometer (BldC) [M ass/Vol]Ordered By: Surinder Larson on 08-07-2023 Glucose [Mass/Vol] 110 mg/dL 74-106 [facility] Comment on above: MANAGEMENT OF PATIEN T CARE PER NURSING PROTOCOL Basophil percentageOrdered B y: Surinder Larson on 05-30-2023 Basophil percentage 1.3 mg/dL 0.70-1.30 [facility] Creatinine [Mass/Vol] 1.3 mg/dL 0.70-1.30 [facility] Laboratory - Chemistry and C hemistry - challengeOrdered By: Surinder Larson on 05-30-2023 GFR/1.73 sq M.predicted among non-blacks MDRD (S/P/Bld) [Vol rate/Area] 56.0000 mL/min/{1.73_m2} >60 [facility] No Panel InformationOrdered By: Surinder Larson on 05-30-2023 56.0000 mL/min >60 [facility] No Panel InformationOrdered By: Surinder Larson on 04-16-2023 Prostate Specific Antigen Total 11.30 ng/mL 0.0-4.0 [facility] Comment on above: This test was perfor med using the TPSA assay method for the[employer] chemistry system. Values obtained with differentassay methods cannot be used interchangably.When changing PSA assays in the course of monitoring apatient, additional sequential testing should be carriedout to confirm baseline values. Absolute lymphocyte countOrd ered By: Marycruz Yen on 04-01-2023 Lymphocytes Auto (Unsp spec) [#/Vol] 1.48 10*3/uL 0.83-4.51 [facility] Basophil percentageOrdered B y: Marycruz Yen on 04-01-2023 Basophils/100 WBC (Bld) 0.1 % 0-1 [facility] Bilirubin [Mass/Vol] 0.30 mg/dL 0.20-1.00 [facility] Comment on above: For patients on eltr ombopag therapy, use of Dimension Frannie TBIL is not recommended. Chloride [Moles/Vol] 109 mmol/L 98-107 [facility] Eosinophils/100 WBC (Bld) 2.4 % 0-5 [facility] Glucose [Mass/Vol] 181 mg/dL 74-106 [facility] Comment on above: Fasting Glucose resu lt greater than or equal to 126 mg/dL suggests DIABETES MELLITUS per A.D.A. criteria. Neutrophils (Bld) [#/Vol] 4.8 10*3/uL 2.0-7.7 [facility] Neutrophils/100 WBC (Bld) 66.9 % 47-70 [facility] Potassium [Moles/Vol] 3.7 mmol/L 3.5-5.1 [facility] Protein [Mass/Vol] 6.5 g/dL 6.4-8.2 [facility] Sodium [Moles/Vol] 140 mmol/L 136-145 [facility] WBC (Bld) [#/Vol] 7.1 10*3/uL 4.4-11.0 [facility] Blood erythrocytes count (nu mber/volume)Ordered By: Marycruz Yen on 04-01-2023 RBC (Bld) [#/Vol] 4.27 10*6/uL 4.6-6.2 [facility] Blood hemoglobin measurement (mass/volume)Ordered By: Marycruz Yen on 04-01-2023 Hemoglobin (Bld) [Mass/Vol] 13.0 g/dL 13.0-16.5 [facility] Blood lymphocytes/100 leukoc ytesOrdered By: Marycruz Yen on 04-01-2023 Lymphocytes/100 WBC (Bld) 20.8 % 19-41 [facility] Blood monocytes/100 leukocyt esOrdered By: Marycruz Yen on 04-01-2023 Monocytes/100 WBC (Bld) 9.4 % 0-10 [facility] Blood platelet mean volumeOr dered By: Marycruz Yen on 04-01-2023 Platelet mean volume (Bld) [Entitic vol] 11.5 fL 6.2-12.0 [facility] Determination of erythrocyte mean corpuscular volume (MCV)Ordered By: Marycruz Yen on 04-01-2023 MCV (RBC) [Entitic vol] 94.8 fL 80-94 [facility] Hematocrit Auto (Bld) [Volum e fraction]Ordered By: Marycruz Yen on 04-01-2023 Hematocrit (Bld) [Volume fraction] 40.5 % 40-54 [facility] Laboratory - Chemistry and C hemistry - challengeOrdered By: [facility] Farshad on 04-01-2023 ALP [Catalytic activity/Vol] 48 U/L 45-117 [facility] ALT [Catalytic activity/Vol] 69 U/L 16-61 [facility] CO2 [Moles/Vol] 26.0 mmol/L 21.0-32.0 [facility] Globulin (S) [Mass/Vol] 3.6 g/dL 2.2-4.2 [facility] Urea nitrogen/Creatinine [Mass ratio] 17.7 mg/mg 10-20 [facility] Laboratory - Hematology and Cell countsOrdered By: Marycruz Yen on 04-01-2023 Erythrocyte distribution width (RBC) [Entitic vol] 55.5 fL 35.1-43.9 [facility] Erythrocyte distribution width (RBC) [Ratio] 16.0 % 11.6-14.6 [facility] Immature granulocytes/100 WBC (Bld) 0.400 % 0.0-0.9 [facility] Comment on above: IG% - Immature Granu locytes (promyelocytes, myelocytes and metamyelocytes) > 1% indicates that a LEFT SHIFT is Present. MCH (RBC) [Entitic mass] 30.4 pg 27.0-32.0 [facility] Nucleated RBC/100 WBC (Bld) [Ratio] 0 % 0-5 [facility] MCHC Auto (RBC) [Mass/Vol]Or dered By: Marycruz Yen on 04-01-2023 MCHC (RBC) [Mass/Vol] 32.1 g/dL 32-36 [facility] No Panel InformationOrdered By: Marycruz Yen on 04-01-2023 Estimated GFR (MDRD) Amer 60 mL/min >60 [facility] Comment on above: GFR Calc Estimated GFR (MDRD) Non-Af Amer 49 mL/min >60 [facility] Comment on above: Non- GFR Calc Platelets bldOrdered By: Jamir Yen on 04-01-2023 Platelets (Bld) [#/Vol] 150 10*3/uL 150-450 [facility] Serum or plasma albumin amanda urement (mass/volume)Ordered By: Marycruz Yen on 04-01-2023 Albumin [Mass/Vol] 2.9 g/dL 3.2-5.0 [facility] Serum or plasma albumin/glob ulin mass ratioOrdered By: Marycruz Yen on 04-01-2023 Albumin/Globulin [Mass ratio] 0.8 {ratio} 0.9-2.4 [facility] Serum or plasma calcium amanda urement (mass/volume)Ordered By: Marycruz eYn on 04-01-2023 Calcium [Mass/Vol] 8.5 mg/dL 8.5-10.1 [facility] Serum or plasma creatinine m easurement (mass/volume)Ordered By: Marycruz Yen on 04-01-2023 Creatinine [Mass/Vol] 1.47 mg/dL 0.70-1.30 [facility] Comment on above: The validity of the calculated GFR & GFRAA in patients over 70 years has not been determined. Clinical correlation is essential. Serum or plasma urea nitroge n measurement (mass/volume)Ordered By: Marycruz Yen on 04-01-2023 Urea nitrogen [Mass/Vol] 26 mg/dL 7-18 [facility] Serum or plasma uric acid me asurement (mass/volume)Ordered By: Marycruz Yen on 04-01-2023 Urate [Mass/Vol] 5.0 mg/dL 3.5-7.2 [facility] Comment on above: The drugs N-Acetylcy steine and Metamizole may falsely depress this assay. Thin prep Papanicolaou smear with manual screeningOrdered By: Marycruz Yen on 04-01-2023 Thin prep Papanicolaou smear with manual screening 23 U/L 15-37 [facility] Thin prep Papanicolaou smear with manual screening 5 5-15 [facility] Absolute lymphocyte countOrd ered By: Dr. Bojorquez on 03-26-2023 Lymphocytes Auto (Unsp spec) [#/Vol] 1.79 10*3/uL 0.83-4.51 [facility] Basophil percentageOrdered B y: Dr. Bojorquez on 03-26-2023 Basophils/100 WBC (Bld) 0.1 % 0-1 [facility] Chloride [Moles/Vol] 109 mmol/L 98-107 [facility] Eosinophils/100 WBC (Bld) 0.0 % 0-5 [facility] Glucose [Mass/Vol] 151 mg/dL 74-106 [facility] Comment on above: Fasting Glucose resu lt greater than or equal to 126 mg/dL suggests DIABETES MELLITUS per A.D.A. criteria. Neutrophils (Bld) [#/Vol] 8.2 10*3/uL 2.0-7.7 [facility] Neutrophils/100 WBC (Bld) 76.0 % 47-70 [facility] Potassium [Moles/Vol] 3.3 mmol/L 3.5-5.1 [facility] Sodium [Moles/Vol] 141 mmol/L 136-145 [facility] WBC (Bld) [#/Vol] 10.7 10*3/uL 4.4-11.0 [facility] Blood erythrocytes count (nu mber/volume)Ordered By: Dr. Bojorquez on 03-26-2023 RBC (Bld) [#/Vol] 4.15 10*6/uL 4.6-6.2 [facility] Blood hemoglobin measurement (mass/volume)Ordered By: Dr. Bojorquez on 03-26-2023 Hemoglobin (Bld) [Mass/Vol] 12.8 g/dL 13.0-16.5 [facility] Blood lymphocytes/100 leukoc ytesOrdered By: Dr. Bojorquez on 03-26-2023 Lymphocytes/100 WBC (Bld) 16.7 % 19-41 [facility] Blood monocytes/100 leukocyt esOrdered By: Dr. Bojorquez on 03-26-2023 Monocytes/100 WBC (Bld) 6.8 % 0-10 [facility] Blood platelet mean volumeOr dered By: Dr. Bojorquez on 03-26-2023 Platelet mean volume (Bld) [Entitic vol] 10.0 fL 6.2-12.0 [facility] Determination of erythrocyte mean corpuscular volume (MCV)Ordered By: Dr. Bojorquez on 03-26-2023 MCV (RBC) [Entitic vol] 91.6 fL 80-94 [facility] Glucose Glucometer (dC) [M ass/Vol]Ordered By: Dr. Bojorquez on 03-26-2023 Glucose [Mass/Vol] 185 mg/dL 74-106 [facility] Comment on above: MANAGEMENT OF PATIEN T CARE PER NURSING PROTOCOL Hematocrit Auto (Bld) [Volum e fraction]Ordered By: Dr. Bojorquez on 03-26-2023 Hematocrit (Bld) [Volume fraction] 38.0 % 40-54 [facility] Laboratory - Chemistry and C hemistry - challengeOrdered By: Dr. Bojorquez on 03-26-2023 CO2 [Moles/Vol] 26.0 mmol/L 21.0-32.0 [facility] Urea nitrogen/Creatinine [Mass ratio] 27.1 mg/mg 10-20 [facility] Laboratory - Hematology and Cell countsOrdered By: Dr. Bojorquez on 03-26-2023 Erythrocyte distribution width (RBC) [Entitic vol] 50.9 fL 35.1-43.9 [facility] Erythrocyte distribution width (RBC) [Ratio] 15.3 % 11.6-14.6 [facility] Immature granulocytes/100 WBC (Bld) 0.400 % 0.0-0.9 [facility] Comment on above: IG% - Immature Granu locytes (promyelocytes, myelocytes and metamyelocytes) > 1% indicates that a LEFT SHIFT is Present. MCH (RBC) [Entitic mass] 30.8 pg 27.0-32.0 [facility] Nucleated RBC/100 WBC (Bld) [Ratio] 0 % 0-5 [facility] MCHC Auto (RBC) [Mass/Vol]Or dered By: Dr. Bojorquez on 03-26-2023 MCHC (RBC) [Mass/Vol] 33.7 g/dL 32-36 [facility] No Panel InformationOrdered By: Dr. Bojorquez on 03-26-2023 Estimated Creatinine Clearance Calc 36.72 ml/min [facility] Estimated GFR (MDRD) Amer 56 mL/min >60 [facility] Comment on above: GFR Calc Estimated GFR (MDRD) Non-Af Amer 46 mL/min >60 [facility] Comment on above: Non- GFR Calc Platelets bldOrdered By: Dr. Bojorquez on 03-26-2023 Platelets (Bld) [#/Vol] 182 10*3/uL 150-450 [facility] Serum or plasma calcium amanda urement (mass/volume)Ordered By: Dr. Bojorquez on 03-26-2023 Calcium [Mass/Vol] 8.5 mg/dL 8.5-10.1 [facility] Serum or plasma creatinine m easurement (mass/volume)Ordered By: Dr. Bojorquez on 03-26-2023 Creatinine [Mass/Vol] 1.55 mg/dL 0.70-1.30 [facility] Comment on above: The validity of the calculated GFR & GFRAA in patients over 70 years has not been determined. Clinical correlation is essential. Serum or plasma urea nitroge n measurement (mass/volume)Ordered By: Dr. Bojorquez on 03-26-2023 Urea nitrogen [Mass/Vol] 42 mg/dL 7-18 [facility] Thin prep Papanicolaou smear with manual screeningOrdered By: Dr. Bojorquez on 03-26-2023 Thin prep Papanicolaou smear with manual screening 6 5-15 [facility] Vancomycin troughOrdered By: Dr. Ferreira on 03-23-2023 Vancomycin trough [Mass/Vol] 14.3 ug/mL 5.0-15.0 [facility] Comment on above: VANCOMYCIN STANDARED DRUG THERAPY TROUGH LEVEL: 5.0 - 15.0 mg/L VANCOMYCIN HIGH INTENSITY THERAPY TROUGH LEVEL: 15.0 - 20.0 mg/L High Intensity therapy recommended for serious lifethreatening infections include:- Tqxqtfgeks-Qscvkfsedkhy-Alygxkyto (Ventilator/Healtcare Associated)-Sepsis PLEASE CONTACT PHARMACY SERVICES (#3317) FOR INTERPRETATIONOF RESULTS. Gram stain for investigation of transfusion reactionOrdered By: Dr. Ferreira on 03-22-2023 Microscopic observation Gram stain Nom (Unsp spec) [facility] No Panel InformationOrdered By: Dr. Ferreira on 03-22-2023 Methicillin-Resist S.aureus DNA PCR Negative Negative [facility] Respiratory pathogens detect ion panel by molecular detection methodOrdered By: Dr. Ferreira on 03-22-2023 Respiratory pathogens DNA and RNA panel IRINA+probe (Resp) [facility] Bacteria identified Respirat ory culture Nom (Unsp spec)Ordered By: Pedro Ferreira on 03-21-2023 Respiratory Culture Pseudomonas aeruginosa [facility] Gram stain for investigation of transfusion reactionOrdered By: Pedro Ferreira on 03-21-2023 Microscopic observation Gram stain Nom (Unsp spec) [facility] Laboratory - Chemistry and C hemistry - challengeOrdered By: Dr. Sullivan on 03-21-2023 Natriuretic peptide B (Bld) [Mass/Vol] 118.7 pg/mL 0-100 [facility] No Panel InformationOrdered By: Pedro Ferreira on 03-21-2023 Streptococcus pneumoniae Antigen (M [facility] No Panel InformationOrdered By: Dr. Sullivan on 03-21-2023 Troponin I High Sensitivity 22 pg/mL 3.0-78.0 [facility] Comment on above: Please Note: New Vira t Units and Gender Specific Reference Ranges. For more information see Policy Stat Procedure Frannie High Sensitivity Troponin (TNIH) and attachments. No Panel InformationOrdered By: Dr. Ferreira on 03-21-2023 Streptococcus pneumoniae Antigen (M [facility] Respiratory pathogens detect ion panel by molecular detection methodOrdered By: Pedro Ferreira on 03-21-2023 Respiratory pathogens DNA and RNA panel IRINA+probe (Resp) [facility] Absolute lymphocyte countOrd ered By: Dr. Yen on 01-03-2023 Lymphocytes Auto (Unsp spec) [#/Vol] 2.62 10*3/uL 0.83-4.51 [facility] Basophil percentageOrdered B y: Dr. Yen on 01-03-2023 Basophils/100 WBC (Bld) 0.6 % 0-1 [facility] Bilirubin [Mass/Vol] 0.50 mg/dL 0.20-1.00 [facility] Comment on above: For patients on eltr ombopag therapy, use of Dimension Frannie TBIL is not recommended. Chloride [Moles/Vol] 109 mmol/L 98-107 [facility] Eosinophils/100 WBC (Bld) 4.2 % 0-5 [facility] Glucose [Mass/Vol] 138 mg/dL 74-106 [facility] Comment on above: Fasting Glucose resu lt greater than or equal to 126 mg/dL suggests DIABETES MELLITUS per A.D.A. criteria. Neutrophils (Bld) [#/Vol] 2.9 10*3/uL 2.0-7.7 [facility] Neutrophils/100 WBC (Bld) 44.7 % 47-70 [facility] Potassium [Moles/Vol] 3.6 mmol/L 3.5-5.1 [facility] Protein [Mass/Vol] 7.0 g/dL 6.4-8.2 [facility] Sodium [Moles/Vol] 142 mmol/L 136-145 [facility] WBC (Bld) [#/Vol] 6.5 10*3/uL 4.4-11.0 [facility] Blood erythrocytes count (nu mber/volume)Ordered By: Dr. Yen on 01-03-2023 RBC (Bld) [#/Vol] 4.04 10*6/uL 4.6-6.2 [facility] Blood hemoglobin measurement (mass/volume)Ordered By: Dr. Yen on 01-03-2023 Hemoglobin (Bld) [Mass/Vol] 12.9 g/dL 13.0-16.5 [facility] Blood lymphocytes/100 leukoc ytesOrdered By: Dr. Yen on 01-03-2023 Lymphocytes/100 WBC (Bld) 40.5 % 19-41 [facility] Blood monocytes/100 leukocyt esOrdered By: Dr. Yen on 01-03-2023 Monocytes/100 WBC (Bld) 9.7 % 0-10 [facility] Blood platelet mean volumeOr dered By: Dr. Yen on 01-03-2023 Platelet mean volume (Bld) [Entitic vol] 10.9 fL 6.2-12.0 [facility] Determination of erythrocyte mean corpuscular volume (MCV)Ordered By: Dr. Yen on 01-03-2023 MCV (RBC) [Entitic vol] 95.3 fL 80-94 [facility] Hematocrit Auto (Bld) [Volum e fraction]Ordered By: Dr. Yen on 01-03-2023 Hematocrit (Bld) [Volume fraction] 38.5 % 40-54 [facility] Laboratory - Chemistry and C hemistry - challengeOrdered By: Dr. Yen on 01-03-2023 ALP [Catalytic activity/Vol] 52 U/L 45-117 [facility] ALT [Catalytic activity/Vol] 39 U/L 16-61 [facility] CO2 [Moles/Vol] 26.0 mmol/L 21.0-32.0 [facility] Globulin (S) [Mass/Vol] 3.5 g/dL 2.2-4.2 [facility] Urea nitrogen/Creatinine [Mass ratio] 12.6 mg/mg 10-20 [facility] Laboratory - Hematology and Cell countsOrdered By: Dr. Yen on 01-03-2023 Erythrocyte distribution width (RBC) [Entitic vol] 56.0 fL 35.1-43.9 [facility] Erythrocyte distribution width (RBC) [Ratio] 15.9 % 11.6-14.6 [facility] Immature granulocytes/100 WBC (Bld) 0.300 % 0.0-0.9 [facility] Comment on above: IG% - Immature Granu locytes (promyelocytes, myelocytes and metamyelocytes) > 1% indicates that a LEFT SHIFT is Present. MCH (RBC) [Entitic mass] 31.9 pg 27.0-32.0 [facility] Nucleated RBC/100 WBC (Bld) [Ratio] 0 % 0-5 [facility] MCHC Auto (RBC) [Mass/Vol]Or dered By: Dr. Yen on 01-03-2023 MCHC (RBC) [Mass/Vol] 33.5 g/dL 32-36 [facility] No Panel InformationOrdered By: Dr. Yen on 01-03-2023 Estimated GFR (MDRD) Amer 54 mL/min >60 [facility] Comment on above: GFR Calc Estimated GFR (MDRD) Non-Af Amer 45 mL/min >60 [facility] Comment on above: Non- GFR Calc Platelets bldOrdered By: Dr. Yen on 01-03-2023 Platelets (Bld) [#/Vol] 174 10*3/uL 150-450 [facility] Serum or plasma albumin amanda urement (mass/volume)Ordered By: Dr. Yen on 01-03-2023 Albumin [Mass/Vol] 3.5 g/dL 3.2-5.0 [facility] Serum or plasma albumin/glob ulin mass ratioOrdered By: Dr. Yen on 01-03-2023 Albumin/Globulin [Mass ratio] 1.0 {ratio} 0.9-2.4 [facility] Serum or plasma calcium amanda urement (mass/volume)Ordered By: Dr. Yen on 01-03-2023 Calcium [Mass/Vol] 8.8 mg/dL 8.5-10.1 [facility] Serum or plasma creatinine m easurement (mass/volume)Ordered By: Dr. Yen on 01-03-2023 Creatinine [Mass/Vol] 1.59 mg/dL 0.70-1.30 [facility] Comment on above: The validity of the calculated GFR & GFRAA in patients over 70 years has not been determined. Clinical correlation is essential. Serum or plasma urea nitroge n measurement (mass/volume)Ordered By: Dr. Yen on 01-03-2023 Urea nitrogen [Mass/Vol] 20 mg/dL 7-18 [facility] Serum or plasma uric acid me asurement (mass/volume)Ordered By: Dr. Yen on 01-03-2023 Urate [Mass/Vol] 7.8 mg/dL 3.5-7.2 [facility] Comment on above: The drugs N-Acetylcy steine and Metamizole may falsely depress this assay. Thin prep Papanicolaou smear with manual screeningOrdered By: Dr. Yen on 01-03-2023 Thin prep Papanicolaou smear with manual screening 32 U/L 15-37 [facility] Thin prep Papanicolaou smear with manual screening 7 5-15 [facility] Basophil percentageOrdered B y: Dr. Bellamy on 12-20-2022 Basophil percentage 196 mg/dL 74-106 [facility] Basophil percentage 2.2 mg/dL 2.5-4.9 [facility] Basophil percentage 145 mmol/L 136-145 [facility] Basophil percentage 3.7 mmol/L 3.5-5.1 [facility] Basophil percentage 109 mmol/L 98-107 [facility] Chloride [Moles/Vol] 109 mmol/L 98-107 [facility] Glucose [Mass/Vol] 196 mg/dL 74-106 [facility] Comment on above: Fasting Glucose resu lt greater than or equal to 126 mg/dL suggests DIABETES MELLITUS per A.D.A. criteria. Potassium [Moles/Vol] 3.7 mmol/L 3.5-5.1 [facility] Sodium [Moles/Vol] 145 mmol/L 136-145 [facility] Laboratory - Chemistry and C hemistry - challengeOrdered By: Dr. Bellamy on 12-20-2022 CO2 [Moles/Vol] 26.0 mmol/L 21.0-32.0 [facility] Urea nitrogen/Creatinine [Mass ratio] 13.1 mg/mg 10- [facility] No Panel InformationOrdered By: Dr. Bellamy on 12-20-2022 Estimated GFR (MDRD) Amer 61 mL/min >60 [facility] Comment on above: GFR Calc Estimated GFR (MDRD) Non-Af Amer 50 mL/min >60 [facility] Comment on above: Non- GFR Calc 50 mL/min >60 [facility] 61 mL/min >60 [facility] 13.1 RATIO 10-20 [facility] 26.0 mmol/L 21.0-32.0 [facility] Serum or plasma albumin amanda urement (mass/volume)Ordered By: Dr. Bellamy on 12-20-2022 Albumin [Mass/Vol] 3.3 g/dL 3.2-5.0 [facility] Serum or plasma calcium amanda urement (mass/volume)Ordered By: Dr. Bellamy on 12-20-2022 Calcium [Mass/Vol] 8.4 mg/dL 8.5-10.1 [facility] Serum or plasma creatinine m easurement (mass/volume)Ordered By: Dr. Bellamy on 12-20-2022 Creatinine [Mass/Vol] 1.45 mg/dL 0.70-1.30 [facility] Comment on above: The validity of the calculated GFR & GFRAA in patients over 70 years has not been determined. Clinical correlation is essential. Serum or plasma urea nitroge n measurement (mass/volume)Ordered By: Dr. Bellamy on 12-20-2022 Urea nitrogen [Mass/Vol] 19 mg/dL 7-18 [facility] Urine creatinine measurement (mass/volume)Ordered By: Dr. Bellamy on 12-20-2022 Creatinine (U) [Mass/Vol] 308.00 mg/dL NO RANGE EST. [facility] Urine protein measurement (m ass/volume)Ordered By: Dr. Bellamy on 12-20-2022 Protein (U) [Mass/Vol] 110.0 mg/dL 0.0-11.8 [facility] Urine protein/creatinine mas s ratioOrdered By: Dr. Bellamy on 12-20-2022 Protein/Creatinine (U) [Mass ratio] 357 mg/g CRE 0-200 [facility] Qualitative QuantiFERON-TB g old in tube testOrdered By: Dr. Yen on 11-09-2022 M. tuberculosis tuberculin stim IFN-g Ql (Bld) 0.13 IU/mL . [facility] Thin prep Papanicolaou smear with manual screeningOrdered By: Dr. Yen on 11-09-2022 Thin prep Papanicolaou smear with manual screening Comment . [facility] Comment on above: QuantiFERON-TB Gold Plus [...] smear with manual screening 0.13 IU/mL . [facility] Thin prep Papanicolaou smear with manual screening 0.16 IU/mL . [facility] Thin prep Papanicolaou smear with manual screening > 10.00 IU/mL . [facility] Thin prep Papanicolaou smear with manual screening Negative Negative [facility] Comment on above: No response to [...] the productionof interferon gamma. Chemiluminescence immunoassaymethodologyPerformed at: [facility] [id number] Director: Leander Boo PhD, Phone: [phone] Absolute lymphocyte countOrd ered By: Dr. Yen on 11-08-2022 Lymphocytes Auto (Unsp spec) [#/Vol] 1.96 10*3/uL 0.83-4.51 [facility] Basophil percentageOrdered B y: Dr. Yen on 11-08-2022 Basophil percentage 169 mg/dL 74-106 [facility] Basophil percentage 7.2 g/dL 6.4-8.2 [facility] Basophil percentage 0.50 mg/dL 0.20-1.00 [facility] Basophil percentage 142 mmol/L 136-145 [facility] Basophil percentage 3.8 mmol/L 3.5-5.1 [facility] Basophil percentage 108 mmol/L 98-107 [facility] Basophils (Bld) [#/Vol] 6.5 10*3/uL 4.4-11.0 [facility] Basophils (Bld) [#/Vol] 3.6 10*3/uL 2.0-7.7 [facility] Basophils/100 WBC (Bld) 55.5 % 47-70 [facility] Basophils/100 WBC (Bld) 1.7 % 0-5 [facility] Basophils/100 WBC (Bld) 0.3 % 0-1 [facility] Bilirubin [Mass/Vol] 0.50 mg/dL 0.20-1.00 [facility] Comment on above: For patients on eltr ombopag therapy, use of Dimension Frannie TBIL is not recommended. Chloride [Moles/Vol] 108 mmol/L 98-107 [facility] Eosinophils/100 WBC (Bld) 1.7 % 0-5 [facility] Glucose [Mass/Vol] 169 mg/dL 74-106 [facility] Comment on above: Fasting Glucose resu lt greater than or equal to 126 mg/dL suggests DIABETES MELLITUS per A.D.A. criteria. Neutrophils (Bld) [#/Vol] 3.6 10*3/uL 2.0-7.7 [facility] Neutrophils/100 WBC (Bld) 55.5 % 47-70 [facility] Potassium [Moles/Vol] 3.8 mmol/L 3.5-5.1 [facility] Protein [Mass/Vol] 7.2 g/dL 6.4-8.2 [facility] Sodium [Moles/Vol] 142 mmol/L 136-145 [facility] WBC (Bld) [#/Vol] 6.5 10*3/uL 4.4-11.0 [facility] Blood erythrocytes count (nu mber/volume)Ordered By: Dr. Yen on 11-08-2022 RBC (Bld) [#/Vol] 4.43 10*6/uL 4.6-6.2 [facility] Blood hemoglobin measurement (mass/volume)Ordered By: Dr. Yen on 11-08-2022 Hemoglobin (Bld) [Mass/Vol] 13.8 g/dL 13.0-16.5 [facility] Blood lymphocytes/100 leukoc ytesOrdered By: Dr. Yen on 11-08-2022 Lymphocytes/100 WBC (Bld) 30.4 % 19-41 [facility] Blood monocytes/100 leukocyt esOrdered By: Dr. Yen on 11-08-2022 Monocytes/100 WBC (Bld) 11.8 % 0-10 [facility] Blood platelet mean volumeOr dered By: Dr. Yen on 11-08-2022 Platelet mean volume (Bld) [Entitic vol] 11.5 fL 6.2-12.0 [facility] Determination of erythrocyte mean corpuscular volume (MCV)Ordered By: Dr. Yen on 11-08-2022 MCV (RBC) [Entitic vol] 93.5 fL 80-94 [facility] Hematocrit Auto (Bld) [Volum e fraction]Ordered By: Dr. Yen on 11-08-2022 Hematocrit (Bld) [Volume fraction] 41.4 % 40-54 [facility] Laboratory - Chemistry and C hemistry - challengeOrdered By: Dr. Yen on 11-08-2022 ALP [Catalytic activity/Vol] 53 U/L 45-117 [facility] ALT [Catalytic activity/Vol] 52 U/L 16-61 [facility] CO2 [Moles/Vol] 25.0 mmol/L 21.0-32.0 [facility] Globulin (S) [Mass/Vol] 3.8 g/dL 2.2-4.2 [facility] Urea nitrogen/Creatinine [Mass ratio] 17.8 mg/mg 10-20 [facility] Laboratory - Hematology and Cell countsOrdered By: Dr. Yen on 11-08-2022 Erythrocyte distribution width (RBC) [Entitic vol] 57.5 fL 35.1-43.9 [facility] Erythrocyte distribution width (RBC) [Ratio] 16.8 % 11.6-14.6 [facility] Immature granulocytes/100 WBC (Bld) 0.300 % 0.0-0.9 [facility] Comment on above: IG% - Immature Granu locytes (promyelocytes, myelocytes and metamyelocytes) > 1% indicates that a LEFT SHIFT is Present. MCH (RBC) [Entitic mass] 31.2 pg 27.0-32.0 [facility] Nucleated RBC/100 WBC (Bld) [Ratio] 0.3 % 0-5 [facility] MCHC Auto (RBC) [Mass/Vol]Or dered By: Dr. Yen on 11-08-2022 MCHC (RBC) [Mass/Vol] 33.3 g/dL 32-36 [facility] No Panel InformationOrdered By: Dr. Yen on 11-08-2022 Estimated GFR (MDRD) Amer 66 mL/min >60 [facility] Comment on above: GFR Calc Estimated GFR (MDRD) Non-Af Amer 54 mL/min >60 [facility] Comment on above: Non- GFR Calc 31.2 pg 27.0-32.0 [facility] 16.8 % 11.6-14.6 [facility] 57.5 fl 35.1-43.9 [facility] 0.300 % 0.0-0.9 [facility] 0.3 % 0-5 [facility] 54 mL/min >60 [facility] 66 mL/min >60 [facility] 17.8 RATIO 10-20 [facility] 3.8 g/dL 2.2-4.2 [facility] 53 U/L 45-117 [facility] 52 U/L 16-61 [facility] 25.0 mmol/L 21.0-32.0 [facility] Platelets bldOrdered By: Dr. Yen on 11-08-2022 Platelets (Bld) [#/Vol] 129 10*3/uL 150-450 [facility] Serum or plasma albumin amanda urement (mass/volume)Ordered By: Dr. Yen on 11-08-2022 Albumin [Mass/Vol] 3.4 g/dL 3.2-5.0 [facility] Serum or plasma albumin/glob ulin mass ratioOrdered By: Dr. Yen on 11-08-2022 Albumin/Globulin [Mass ratio] 0.9 {ratio} 0.9-2.4 [facility] Serum or plasma calcium amanda urement (mass/volume)Ordered By: Dr. Yen on 11-08-2022 Calcium [Mass/Vol] 9.0 mg/dL 8.5-10.1 [facility] Serum or plasma creatinine m easurement (mass/volume)Ordered By: Dr. Yen on 11-08-2022 Creatinine [Mass/Vol] 1.35 mg/dL 0.70-1.30 [facility] Comment on above: The validity of the calculated GFR & GFRAA in patients over 70 years has not been determined. Clinical correlation is essential. Serum or plasma urea nitroge n measurement (mass/volume)Ordered By: Dr. Yen on 11-08-2022 Urea nitrogen [Mass/Vol] 24 mg/dL 7-18 [facility] Serum or plasma uric acid me asurement (mass/volume)Ordered By: Dr. Yen on 11-08-2022 Urate [Mass/Vol] 5.1 mg/dL 3.5-7.2 [facility] Comment on above: The drugs N-Acetylcy steine and Metamizole may falsely depress this assay. Thin prep Papanicolaou smear with manual screeningOrdered By: Dr. Yen on 11-08-2022 Thin prep Papanicolaou smear with manual screening 23 U/L 15-37 [facility] Thin prep Papanicolaou smear with manual screening 9 5-15 [facility] Anaerobic cultureOrdered By: Dr. Rojo on 10-08-2022 Bacteria identified Anaer cx Nom (Unsp spec) No growth in 5 days. [facility] Bacterial body fluid culture Ordered By: Dr. Rojo on 10-07-2022 Bacteria identified Cx Nom (Body fld) Culture exhibits no growth. [facility] Absolute lymphocyte countOrd ered By: Dr. Bellamy on 10-05-2022 Lymphocytes Auto (Unsp spec) [#/Vol] 1.16 10*3/uL 0.83-4.51 [facility] Basophil percentageOrdered B y: Dr. Bellamy on 10-05-2022 Basophil percentage 1.8 mg/dL 2.5-4.9 [facility] Basophil percentage 210 mg/dL 74-106 [facility] Basophil percentage 138 mmol/L 136-145 [facility] Basophil percentage 3.4 mmol/L 3.5-5.1 [facility] Basophil percentage 104 mmol/L 98-107 [facility] Basophils (Bld) [#/Vol] 10.7 10*3/uL 4.4-11.0 [facility] Basophils (Bld) [#/Vol] 9.0 10*3/uL 2.0-7.7 [facility] Basophils/100 WBC (Bld) 0.1 % 0-1 [facility] Basophils/100 WBC (Bld) 84.0 % 47-70 [facility] Basophils/100 WBC (Bld) 0.0 % 0-5 [facility] Chloride [Moles/Vol] 104 mmol/L 98-107 [facility] Eosinophils/100 WBC (Bld) 0.0 % 0-5 [facility] Glucose [Mass/Vol] 210 mg/dL 74-106 [facility] Comment on above: Glucose result great er than or equal to 200 mg/dLsuggests DIABETES MELLITUS per A.D.A. criteria. Neutrophils (Bld) [#/Vol] 9.0 10*3/uL 2.0-7.7 [facility] Neutrophils/100 WBC (Bld) 84.0 % 47-70 [facility] Potassium [Moles/Vol] 3.4 mmol/L 3.5-5.1 [facility] Sodium [Moles/Vol] 138 mmol/L 136-145 [facility] WBC (Bld) [#/Vol] 10.7 10*3/uL 4.4-11.0 [facility] Blood erythrocytes count (nu mber/volume)Ordered By: Dr. Bellamy on 10-05-2022 RBC (Bld) [#/Vol] 3.98 10*6/uL 4.6-6.2 [facility] Blood hemoglobin measurement (mass/volume)Ordered By: Dr. Bellamy on 10-05-2022 Hemoglobin (Bld) [Mass/Vol] 12.3 g/dL 13.0-16.5 [facility] Blood lymphocytes/100 leukoc ytesOrdered By: Dr. Bellamy on 10-05-2022 Lymphocytes/100 WBC (Bld) 10.8 % 19-41 [facility] Blood monocytes/100 leukocyt esOrdered By: Dr. Bellamy on 10-05-2022 Monocytes/100 WBC (Bld) 4.7 % 0-10 [facility] Blood platelet mean volumeOr dered By: Dr. Bellamy on 10-05-2022 Platelet mean volume (Bld) [Entitic vol] 11.2 fL 6.2-12.0 [facility] Determination of erythrocyte mean corpuscular volume (MCV)Ordered By: Dr. Bellamy on 10-05-2022 MCV (RBC) [Entitic vol] 91.2 fL 80-94 [facility] Glucose Glucometer (BldC) [M ass/Vol]Ordered By: Dr. Bojorquez on 10-05-2022 Glucose [Mass/Vol] 185 mg/dL 74-106 [facility] Comment on above: MANAGEMENT OF PATIEN T CARE PER NURSING PROTOCOL Hematocrit Auto (Bld) [Volum e fraction]Ordered By: Dr. Bellamy on 10-05-2022 Hematocrit (Bld) [Volume fraction] 36.3 % 40-54 [facility] Laboratory - Chemistry and C hemistry - challengeOrdered By: Dr. Bellamy on 10-05-2022 CO2 [Moles/Vol] 25.0 mmol/L 21.0-32.0 [facility] Magnesium [Mass/Vol] 2.2 mg/dL 1.6-2.6 [facility] Urea nitrogen/Creatinine [Mass ratio] 17.5 mg/mg 10-20 [facility] Laboratory - Hematology and Cell countsOrdered By: Dr. Bellamy on 10-05-2022 Erythrocyte distribution width (RBC) [Entitic vol] 53.3 fL 35.1-43.9 [facility] Erythrocyte distribution width (RBC) [Ratio] 15.7 % 11.6-14.6 [facility] Immature granulocytes/100 WBC (Bld) 0.400 % 0.0-0.9 [facility] Comment on above: IG% - Immature Granu locytes (promyelocytes, myelocytes and metamyelocytes) > 1% indicates that a LEFT SHIFT is Present. MCH (RBC) [Entitic mass] 30.9 pg 27.0-32.0 [facility] Nucleated RBC/100 WBC (Bld) [Ratio] 0 % 0-5 [facility] Auto (RBC) [Mass/Vol]Or dered By: Dr. Bellamy on 10-05-2022 MCHC (RBC) [Mass/Vol] 33.9 g/dL 32-36 [facility] No Panel InformationOrdered By: Dr. Bellamy on 10-05-2022 Estimated Creatinine Clearance Calc 34.29 ml/min [facility] Estimated GFR (MDRD) Amer 52 mL/min >60 [facility] Comment on above: GFR Calc Estimated GFR (MDRD) Non-Af Amer 43 mL/min >60 [facility] Comment on above: Non- GFR Calc 30.9 pg 27.0-32.0 [facility] 15.7 % 11.6-14.6 [facility] 53.3 fl 35.1-43.9 [facility] 0.400 % 0.0-0.9 [facility] 0 % 0-5 [facility] 43 mL/min >60 [facility] 52 mL/min >60 [facility] 34.29 ml/min [facility] 17.5 RATIO 10-20 [facility] 2.2 mg/dL 1.6-2.6 [facility] 25.0 mmol/L 21.0-32.0 [facility] Platelets bldOrdered By: Dr. Bellamy on 10-05-2022 Platelets (Bld) [#/Vol] 192 10*3/uL 150-450 [facility] Serum or plasma calcium amanda urement (mass/volume)Ordered By: Dr. Bellamy on 10-05-2022 Calcium [Mass/Vol] 8.4 mg/dL 8.5-10.1 [facility] Serum or plasma creatinine m easurement (mass/volume)Ordered By: Dr. Bellamy on 10-05-2022 Creatinine [Mass/Vol] 1.66 mg/dL 0.70-1.30 [facility] Comment on above: The validity of the calculated GFR & GFRAA in patients over 70 years has not been determined. Clinical correlation is essential. Serum or plasma urea nitroge n measurement (mass/volume)Ordered By: Dr. Bellamy on 10-05-2022 Urea nitrogen [Mass/Vol] 29 mg/dL 7-18 [facility] Thin prep Papanicolaou smear with manual screeningOrdered By: Dr. Bellamy on 10-05-2022 Thin prep Papanicolaou smear with manual screening 9 5-15 [facility] Absolute lymphocyte counton 10-04-2022 Lymphocytes Auto (Unsp spec) [#/Vol] 2.44 10*3/uL 0.83-4.51 [facility] Work Phone: Basophil percentageon 2022 Basophils/100 WBC (Bld) 0.2 % 0-1 [facility] Work Phone: Chloride [Moles/Vol] 104 mmol/L 98-107 [facility] Work Phone: Eosinophils/100 WBC (Bld) 1.7 % 0-5 [facility] Work Phone: Glucose [Mass/Vol] 175 mg/dL 74-106 [facility] Work Phone: Comment on above: Fasting Glucose resu lt greater than or equal to 126 mg/dL suggests DIABETES MELLITUS per A.D.A. criteria. Neutrophils (Bld) [#/Vol] 6.6 10*3/uL 2.0-7.7 [facility] Work Phone: Neutrophils/100 WBC (Bld) 62.9 % 47-70 [facility] Work Phone: Potassium [Moles/Vol] 3.3 mmol/L 3.5-5.1 [facility] Work Phone: Comment on above: Slight Hemolysis, Re sult may be falsely increased. Sodium [Moles/Vol] 136 mmol/L 136-145 [facility] Work Phone: WBC (Bld) [#/Vol] 10.4 10*3/uL 4.4-11.0 [facility] Work Phone: Blood erythrocytes count (nu mber/volume)on 10-04-2022 RBC (Bld) [#/Vol] 4.01 10*6/uL 4.6-6.2 [facility] Work Phone: Blood hemoglobin measurement (mass/volume)on 10-04-2022 Hemoglobin (Bld) [Mass/Vol] 12.5 g/dL 13.0-16.5 [facility] Work Phone: Blood lymphocytes/100 leukoc yteson 10-04-2022 Lymphocytes/100 WBC (Bld) 23.4 % 19-41 [facility] Work Phone: [phone] Blood monocytes/100 leukocyt eson 10-04-2022 Monocytes/100 WBC (Bld) 11.5 % 0-10 [facility] Work Phone: [phone] Blood platelet mean volumeon 10-04-2022 Platelet mean volume (Bld) [Entitic vol] 11.7 fL 6.2-12.0 [facility] Work Phone: [phone] Determination of erythrocyte mean corpuscular volume (MCV)on 10-04-2022 MCV (RBC) [Entitic vol] 92.8 fL 80-94 [facility] Work Phone: [phone] Erythrocyte sedimentation ra teOrdered By: Dr. Stratton on 10-04-2022 ESR (Bld) [Velocity] 43 mm/h 0-20 [facility] Hematocrit Auto (Bld) [Volum e fraction]on 10-04-2022 Hematocrit (Bld) [Volume fraction] 37.2 % 40-54 [facility] Work Phone: Laboratory - Chemistry and C hemistry - challengeon 10-04-2022 CO2 [Moles/Vol] 27.0 mmol/L 21.0-32.0 [facility] Work Phone: [phone] Urea nitrogen/Creatinine [Mass ratio] 14.0 mg/mg 10-20 [facility] Work Phone: [phone] Laboratory - Hematology and Cell countson 10-04-2022 Erythrocyte distribution width (RBC) [Entitic vol] 55.3 fL 35.1-43.9 [facility] Work Phone: [phone] Erythrocyte distribution width (RBC) [Ratio] 16.2 % 11.6-14.6 [facility] Work Phone: [phone] Immature granulocytes/100 WBC (Bld) 0.300 % 0.0-0.9 [facility] Work Phone: Comment on above: IG% - Immature Granu locytes (promyelocytes, myelocytes and metamyelocytes) > 1% indicates that a LEFT SHIFT is Present. MCH (RBC) [Entitic mass] 31.2 pg 27.0-32.0 [facility] Work Phone: [phone] Nucleated RBC/100 WBC (Bld) [Ratio] 0 % 0-5 [facility] Work Phone: [phone] MCHC Auto (RBC) [Mass/Vol]on 10-04-2022 MCHC (RBC) [Mass/Vol] 33.6 g/dL 32-36 [facility] Work Phone: [phone] No Panel Informationon 10-04 Estimated Creatinine Clearance Calc 30.60 ml/min [facility] Work Phone: [phone] Estimated GFR (MDRD) Amer 45 mL/min >60 [facility] Work Phone: Comment on above: GFR Calc Estimated GFR (MDRD) Non-Af Amer 38 mL/min >60 [facility] Work Phone: Comment on above: Non- GFR Calc Platelets bldon 10-04-2022 Platelets (Bld) [#/Vol] 176 10*3/uL 150-450 [facility] Work Phone: [phone] Serum or plasma C reactive p rotein measurement (mass/volume)Ordered By: Dr. Stratton on 10-04-2022 CRP [Mass/Vol] 122.00 mg/L 0.0-3.0 [facility] Comment on above: C-Reactive Protein ( CRP) provides useful information for thediagnosis, therapy and monitoring of inflammatory processesand associated diseases. For the evaluation of Relative Riskfor Cardiovascular Disease, a High Sensitivity CRP (HSCRP)should be ordered. Serum or plasma calcium amanda urement (mass/volume)on 10-04-2022 Calcium [Mass/Vol] 8.4 mg/dL 8.5-10.1 [facility] Work Phone: [phone] Serum or plasma creatinine m easurement (mass/volume)on 10-04-2022 Creatinine [Mass/Vol] 1.86 mg/dL 0.70-1.30 [facility] Work Phone: Comment on above: The validity of the calculated GFR & GFRAA in patients over 70 years has not been determined. Clinical correlation is essential. Serum or plasma urea nitroge n measurement (mass/volume)on 10-04-2022 Urea nitrogen [Mass/Vol] 26 mg/dL 7-18 [facility] Work Phone: Thin prep Papanicolaou smear with manual screeningon 10-04-2022 Thin prep Papanicolaou smear with manual screening 5 5-15 [facility] Work Phone: Gram stain for investigation of transfusion reactionOrdered By: Dr. Rojo on 10-03-2022 Microscopic observation Gram stain Nom (Unsp spec) [facility] Absolute lymphocyte countOrd ered By: Dr. Mckinley on 10-02-2022 Lymphocytes Auto (Unsp spec) [#/Vol] 2.56 10*3/uL 0.83-4.51 [facility] Absolute lymphocyte countOrd ered By: Dr. Yen on 10-02-2022 Lymphocytes Auto (Unsp spec) [#/Vol] 2.50 10*3/uL 0.83-4.51 [facility] Basophil percentageOrdered B y: Dr. Mckinley on 10-02-2022 Basophil percentage 130 mg/dL 74-106 [facility] Basophil percentage 138 mmol/L 136-145 [facility] Basophil percentage 3.5 mmol/L 3.5-5.1 [facility] Basophil percentage 103 mmol/L 98-107 [facility] Basophils (Bld) [#/Vol] 10.3 10*3/uL 4.4-11.0 [facility] Basophils (Bld) [#/Vol] 6.1 10*3/uL 2.0-7.7 [facility] Basophils/100 WBC (Bld) 0.3 % 0-1 [facility] Basophils/100 WBC (Bld) 59.5 % 47-70 [facility] Basophils/100 WBC (Bld) 2.8 % 0-5 [facility] Chloride [Moles/Vol] 103 mmol/L 98-107 [facility] Eosinophils/100 WBC (Bld) 2.8 % 0-5 [facility] Glucose [Mass/Vol] 130 mg/dL 74-106 [facility] Comment on above: Fasting Glucose resu lt greater than or equal to 126 mg/dL suggests DIABETES MELLITUS per A.D.A. criteria. Neutrophils (Bld) [#/Vol] 6.1 10*3/uL 2.0-7.7 [facility] Neutrophils/100 WBC (Bld) 59.5 % 47-70 [facility] Potassium [Moles/Vol] 3.5 mmol/L 3.5-5.1 [facility] Sodium [Moles/Vol] 138 mmol/L 136-145 [facility] WBC (Bld) [#/Vol] 10.3 10*3/uL 4.4-11.0 [facility] Basophil percentageOrdered B y: Dr. Yen on 10-02-2022 Basophil percentage 200 mg/dL 74-106 [facility] Basophil percentage 7.7 g/dL 6.4-8.2 [facility] Basophil percentage 0.60 mg/dL 0.20-1.00 [facility] Basophil percentage 139 mmol/L 136-145 [facility] Basophil percentage 3.4 mmol/L 3.5-5.1 [facility] Basophil percentage 103 mmol/L 98-107 [facility] Basophils (Bld) [#/Vol] 9.3 10*3/uL 4.4-11.0 [facility] Basophils (Bld) [#/Vol] 5.5 10*3/uL 2.0-7.7 [facility] Basophils/100 WBC (Bld) 0.3 % 0-1 [facility] Basophils/100 WBC (Bld) 58.9 % 47-70 [facility] Basophils/100 WBC (Bld) 3.1 % 0-5 [facility] Bilirubin [Mass/Vol] 0.60 mg/dL 0.20-1.00 [facility] Comment on above: For patients on eltr ombopag therapy, use of Dimension Frannie TBIL is not recommended. Chloride [Moles/Vol] 103 mmol/L 98-107 [facility] Eosinophils/100 WBC (Bld) 3.1 % 0-5 [facility] Glucose [Mass/Vol] 200 mg/dL 74-106 [facility] Comment on above: Glucose result great er than or equal to 200 mg/dLsuggests DIABETES MELLITUS per A.D.A. criteria. Neutrophils (Bld) [#/Vol] 5.5 10*3/uL 2.0-7.7 [facility] Neutrophils/100 WBC (Bld) 58.9 % 47-70 [facility] Potassium [Moles/Vol] 3.4 mmol/L 3.5-5.1 [facility] Protein [Mass/Vol] 7.7 g/dL 6.4-8.2 [facility] Sodium [Moles/Vol] 139 mmol/L 136-145 [facility] WBC (Bld) [#/Vol] 9.3 10*3/uL 4.4-11.0 [facility] Blood erythrocytes count (nu mber/volume)Ordered By: Dr. Mckinley on 10-02-2022 RBC (Bld) [#/Vol] 4.31 10*6/uL 4.6-6.2 [facility] Blood erythrocytes count (nu mber/volume)Ordered By: Dr. Yen on 10-02-2022 RBC (Bld) [#/Vol] 4.18 10*6/uL 4.6-6.2 [facility] Blood hemoglobin measurement (mass/volume)Ordered By: Dr. Mckinley on 10-02-2022 Hemoglobin (Bld) [Mass/Vol] 13.6 g/dL 13.0-16.5 [facility] Blood hemoglobin measurement (mass/volume)Ordered By: Dr. Yen on 10-02-2022 Hemoglobin (Bld) [Mass/Vol] 13.0 g/dL 13.0-16.5 [facility] Blood lymphocytes/100 leukoc ytesOrdered By: Dr. Rojo on 10-02-2022 Lymphocytes/100 WBC (Bld) 34 % [facility] Blood lymphocytes/100 leukoc ytesOrdered By: Dr. Mckinley on 10-02-2022 Lymphocytes/100 WBC (Bld) 24.9 % 19-41 [facility] Blood lymphocytes/100 leukoc ytesOrdered By: Dr. Yen on 10-02-2022 Lymphocytes/100 WBC (Bld) 26.9 % 19-41 [facility] Blood monocytes/100 leukocyt esOrdered By: Dr. Mckinley on 10-02-2022 Monocytes/100 WBC (Bld) 12.2 % 0-10 [facility] Blood monocytes/100 leukocyt esOrdered By: Dr. Yen on 10-02-2022 Monocytes/100 WBC (Bld) 10.3 % 0-10 [facility] Blood platelet mean volumeOr dered By: Dr. Mckinley on 10-02-2022 Platelet mean volume (Bld) [Entitic vol] 10.7 fL 6.2-12.0 [facility] Blood platelet mean volumeOr dered By: Dr. Yen on 10-02-2022 Platelet mean volume (Bld) [Entitic vol] 11.0 fL 6.2-12.0 [facility] Color of Synovial fluidOrder ed By: Dr. Rojo on 10-02-2022 Color (Syn fld) Yellow Pale Yellow [facility] Determination of appearance of synovial fluidOrdered By: Dr. Rojo on 10-02-2022 Appearance (Syn fld) Sl Cl CLEAR [facility] Determination of erythrocyte mean corpuscular volume (MCV)Ordered By: Dr. Mckinley on 10-02-2022 MCV (RBC) [Entitic vol] 90.7 fL 80-94 [facility] Determination of erythrocyte mean corpuscular volume (MCV)Ordered By: Dr. Yen on 10-02-2022 MCV (RBC) [Entitic vol] 91.1 fL 80-94 [facility] Erythrocyte sedimentation ra teOrdered By: Dr. Mckinley on 10-02-2022 ESR (Bld) [Velocity] 28 mm/h 0-20 [facility] Hematocrit Auto (Bld) [Volum e fraction]Ordered By: Dr. Mckinley on 10-02-2022 Hematocrit (Bld) [Volume fraction] 39.1 % 40-54 [facility] Hematocrit Auto (Bld) [Volum e fraction]Ordered By: Dr. Yne on 10-02-2022 Hematocrit (Bld) [Volume fraction] 38.1 % 40-54 [facility] Laboratory - Chemistry and C hemistry - challengeOrdered By: Dr. Mckinley on 10-02-2022 CO2 [Moles/Vol] 28.0 mmol/L 21.0-32.0 [facility] Urea nitrogen/Creatinine [Mass ratio] 12.1 mg/mg 10-20 [facility] Laboratory - Chemistry and C hemistry - challengeOrdered By: Dr. Yen on 10-02-2022 ALP [Catalytic activity/Vol] 59 U/L 45-117 [facility] ALT [Catalytic activity/Vol] 47 U/L 16-61 [facility] CO2 [Moles/Vol] 28.0 mmol/L 21.0-32.0 [facility] Globulin (S) [Mass/Vol] 3.8 g/dL 2.2-4.2 [facility] Urea nitrogen/Creatinine [Mass ratio] 12.6 mg/mg 10-20 [facility] Laboratory - Hematology and Cell countsOrdered By: Dr. Mckinley on 10-02-2022 Erythrocyte distribution width (RBC) [Entitic vol] 53.1 fL 35.1-43.9 [facility] Erythrocyte distribution width (RBC) [Ratio] 15.9 % 11.6-14.6 [facility] Immature granulocytes/100 WBC (Bld) 0.300 % 0.0-0.9 [facility] Comment on above: IG% - Immature Granu locytes (promyelocytes, myelocytes and metamyelocytes) > 1% indicates that a LEFT SHIFT is Present. MCH (RBC) [Entitic mass] 31.6 pg 27.0-32.0 [facility] Nucleated RBC/100 WBC (Bld) [Ratio] 0 % 0-5 [facility] Laboratory - Hematology and Cell countsOrdered By: Dr. Yen on 10-02-2022 Erythrocyte distribution width (RBC) [Entitic vol] 52.8 fL 35.1-43.9 [facility] Erythrocyte distribution width (RBC) [Ratio] 15.7 % 11.6-14.6 [facility] Immature granulocytes/100 WBC (Bld) 0.500 % 0.0-0.9 [facility] Comment on above: IG% - Immature Granu locytes (promyelocytes, myelocytes and metamyelocytes) > 1% indicates that a LEFT SHIFT is Present. MCH (RBC) [Entitic mass] 31.1 pg 27.0-32.0 [facility] Nucleated RBC/100 WBC (Bld) [Ratio] 0 % 0-5 [facility] MCHC Auto (RBC) [Mass/Vol]Or dered By: Dr. Mckinley on 10-02-2022 MCHC (RBC) [Mass/Vol] 34.8 g/dL -36 [facility] MCHC Auto (RBC) [Mass/Vol]Or dered By: Dr. Yen on 10-02-2022 MCHC (RBC) [Mass/Vol] 34.1 g/dL -36 [facility] No Panel InformationOrdered By: Dr. Rojo on 10-02-2022 Synovial Fluid Mononuclear WBCs 0.167 10^3/ul [facility] Synovial Fluid Mononuclear WBCs % 56.3 % [facility] Synovial Fluid Polynuclear WBCs 0.130 10^3/uL [facility] Synovial Fluid Polynuclear WBCs % 43.7 % [facility] Synovial Fluid Total Cells Counted 0.3170 10^3/uL 0.000-0.00 0 [facility] Comment on above: This is the Total Nu mber of Nucleated Cell Types in the Body Fluid. 0.3170 10^3/uL 0.000-0.00 0 [facility] 43.7 % [facility] 0.130 10^3/uL [facility] 56.3 % [facility] 0.167 10^3/ul [facility] No Panel InformationOrdered By: Dr. Mckinley on 10-02-2022 Estimated Creatinine Clearance Calc 31.27 ml/min [facility] Estimated GFR (MDRD) Amer 47 mL/min >60 [facility] Comment on above: GFR Calc Estimated GFR (MDRD) Non-Af Amer 39 mL/min >60 [facility] Comment on above: Non- GFR Calc 31.6 pg 27.0-32.0 [facility] 15.9 % 11.6-14.6 [facility] 53.1 fl 35.1-43.9 [facility] 0.300 % 0.0-0.9 [facility] 0 % 0-5 [facility] 39 mL/min >60 [facility] 47 mL/min >60 [facility] 31.27 ml/min [facility] 12.1 RATIO 10-20 [facility] 28.0 mmol/L 21.0-32.0 [facility] No Panel InformationOrdered By: Dr. Yen on 10-02-2022 Estimated GFR (MDRD) Amer 49 mL/min >60 [facility] Comment on above: GFR Calc Estimated GFR (MDRD) Non-Af Amer 41 mL/min >60 [facility] Comment on above: Non- GFR Calc 31.1 pg 27.0-32.0 [facility] 15.7 % 11.6-14.6 [facility] 52.8 fl 35.1-43.9 [facility] 0.500 % 0.0-0.9 [facility] 0 % 0-5 [facility] 41 mL/min >60 [facility] 49 mL/min >60 [facility] 12.6 RATIO 10-20 [facility] 3.8 g/dL 2.2-4.2 [facility] 59 U/L 45-117 [facility] 47 U/L 16-61 [facility] 28.0 mmol/L 21.0-32.0 [facility] Platelets bldOrdered By: Dr. Mckinley on 10-02-2022 Platelets (Bld) [#/Vol] 176 10*3/uL 150-450 [facility] Platelets bldOrdered By: Dr. Yen on 10-02-2022 Platelets (Bld) [#/Vol] 165 10*3/uL 150-450 [facility] Review by pathologiston Pathologist review [place] (Unsp spec) [Interp] May follow [facility] Work Phone: Review by pathologistOrdered By: Dr. Rojo on 10-02-2022 Pathologist review [place] (Unsp spec) [Interp] Reviewed [facility] Comment on above: Previous reported re sult: May follow Edited by: RGOOD on 10/03/22:1326Negative for malignant cells.Andrea Henley M.D. 10/03/22 AMENDED REPORT 10/03/22 1326 PATH COM/SYFL previously reported as: May follow Serum or plasma C reactive p rotein measurement (mass/volume)Ordered By: Dr. Mckinley on 10-02-2022 CRP [Mass/Vol] 26.30 mg/L 0.0-3.0 [facility] Comment on above: C-Reactive Protein ( CRP) provides useful information for thediagnosis, therapy and monitoring of inflammatory processesand associated diseases. For the evaluation of Relative Riskfor Cardiovascular Disease, a High Sensitivity CRP (HSCRP)should be ordered. Serum or plasma albumin amanda urement (mass/volume)Ordered By: Dr. Yen on 10-02-2022 Albumin [Mass/Vol] 3.9 g/dL 3.2-5.0 [facility] Serum or plasma albumin/glob ulin mass ratioOrdered By: Dr. Yen on 10-02-2022 Albumin/Globulin [Mass ratio] 1.0 {ratio} 0.9-2.4 [facility] Serum or plasma calcium amanda urement (mass/volume)Ordered By: Dr. Mckinley on 10-02-2022 Calcium [Mass/Vol] 8.7 mg/dL 8.5-10.1 [facility] Serum or plasma calcium amanda urement (mass/volume)Ordered By: Dr. Yen on 10-02-2022 Calcium [Mass/Vol] 9.1 mg/dL 8.5-10.1 [facility] Serum or plasma creatinine m easurement (mass/volume)Ordered By: Dr. Mckinley on 10-02-2022 Creatinine [Mass/Vol] 1.82 mg/dL 0.70-1.30 [facility] Comment on above: The validity of the calculated GFR & GFRAA in patients over 70 years has not been determined. Clinical correlation is essential. Serum or plasma creatinine m easurement (mass/volume)Ordered By: Dr. Yen on 10-02-2022 Creatinine [Mass/Vol] 1.74 mg/dL 0.70-1.30 [facility] Comment on above: The validity of the calculated GFR & GFRAA in patients over 70 years has not been determined. Clinical correlation is essential. Serum or plasma urea nitroge n measurement (mass/volume)Ordered By: Dr. Mckinley on 10-02-2022 Urea nitrogen [Mass/Vol] 22 mg/dL 04-16 [facility] Serum or plasma urea nitroge n measurement (mass/volume)Ordered By: Dr. Yen on 10-02-2022 Urea nitrogen [Mass/Vol] 22 mg/dL 04-16 [facility] Serum or plasma uric acid me asurement (mass/volume)Ordered By: Dr. Mckinley on 10-02-2022 Urate [Mass/Vol] 8.3 mg/dL 3.5-7.2 [facility] Comment on above: The drugs N-Acetylcy steine and Metamizole may falsely depress this assay. Specimen source identificati on of body fluidOrdered By: Dr. Rojo on 10-02-2022 Specimen source Nom (Body fld) RIGHT KNEE [facility] Synovial fluid erythrocytes count (number/volume)Ordered By: Dr. Rojo on 10-02-2022 RBC (Syn fld) [#/Vol] 0.002 10^6/uL 0-0 [facility] Synovial fluid leukocytes co unt (number/volume)Ordered By: Dr. Rojo on 10-02-2022 WBC (Syn fld) [#/Vol] 0.2970 10^3/uL 0.00 0-0.00 2 [facility] Synovial fluid monocyte perc entageOrdered By: Dr. Rojo on 10-02-2022 Monocytes/100 WBC (Syn fld) 34 % [facility] Synovial fluid neutrophil pe rcentageOrdered By: Dr. Rojo on 10-02-2022 Neutrophils/100 WBC (Syn fld) 30 % 0-25 [facility] Synovial fluid other cells/1 00 leukocytes identificationOrdered By: Dr. Rojo on 10-02-2022 Other cells/100 WBC Nom (Syn fld) 2 % [facility] Thin prep Papanicolaou smear with manual screeningOrdered By: Dr. Mckinley on 10-02-2022 Thin prep Papanicolaou smear with manual screening 7 5-15 [facility] Thin prep Papanicolaou smear with manual screeningOrdered By: Dr. Yen on 10-02-2022 Thin prep Papanicolaou smear with manual screening 29 U/L 15-37 [facility] Thin prep Papanicolaou smear with manual screening 8 5-15 [facility] Absolute lymphocyte countOrd ered By: Dyan Chavez on 09-06-2022 Lymphocytes Auto (Unsp spec) [#/Vol] 2.77 10*3/uL 0.83-4.51 [facility] Basophil percentageOrdered B y: Dyan Scott on 09-06-2022 Basophil percentage 121 mg/dL 74-106 [facility] Basophil percentage 139 mmol/L 136-145 [facility] Basophil percentage 3.5 mmol/L 3.5-5.1 [facility] Basophil percentage 106 mmol/L 98-107 [facility] Basophils (Bld) [#/Vol] 6.7 10*3/uL 4.4-11.0 [facility] Basophils (Bld) [#/Vol] 2.8 10*3/uL 2.0-7.7 [facility] Basophils/100 WBC (Bld) 0.6 % 0-1 [facility] Basophils/100 WBC (Bld) 41.2 % 47-70 [facility] Basophils/100 WBC (Bld) 6.4 % 0-5 [facility] Chloride [Moles/Vol] 106 mmol/L 98-107 [facility] Eosinophils/100 WBC (Bld) 6.4 % 0-5 [facility] Glucose [Mass/Vol] 121 mg/dL 74-106 [facility] Comment on above: Fasting Glucose resu lt from 100 to 125 mg/dL suggests IMPAIRED HOMEOSTASIS per A.D.A. criteria. Neutrophils (Bld) [#/Vol] 2.8 10*3/uL 2.0-7.7 [facility] Neutrophils/100 WBC (Bld) 41.2 % 47-70 [facility] Potassium [Moles/Vol] 3.5 mmol/L 3.5-5.1 [facility] Sodium [Moles/Vol] 139 mmol/L 136-145 [facility] WBC (Bld) [#/Vol] 6.7 10*3/uL 4.4-11.0 [facility] Blood erythrocytes count (nu mber/volume)Ordered By: Dyan Chavez on 09-06-2022 RBC (Bld) [#/Vol] 4.43 10*6/uL 4.6-6.2 [facility] Blood hemoglobin measurement (mass/volume)Ordered By: Dyan Chavez on 09-06-2022 Hemoglobin (Bld) [Mass/Vol] 13.6 g/dL 13.0-16.5 [facility] Blood lymphocytes/100 leukoc ytesOrdered By: Dyan Chavez on 09-06-2022 Lymphocytes/100 WBC (Bld) 41.2 % 19-41 [facility] Blood monocytes/100 leukocyt esOrdered By: Dyan Chavez on 09-06-2022 Monocytes/100 WBC (Bld) 10.5 % 0-10 [facility] Blood platelet mean volumeOr dered By: Dyan Chavez on 09-06-2022 Platelet mean volume (Bld) [Entitic vol] 11.1 fL 6.2-12.0 [facility] Determination of erythrocyte mean corpuscular volume (MCV)Ordered By: Dyan Chavez on 09-06-2022 MCV (RBC) [Entitic vol] 91.4 fL 80-94 [facility] Hematocrit Auto (Bld) [Volum e fraction]Ordered By: Dyan Chavez on 09-06-2022 Hematocrit (Bld) [Volume fraction] 40.5 % 40-54 [facility] Laboratory - Chemistry and C hemistry - challengeOrdered By: Dyan Chavez on 09-06-2022 CO2 [Moles/Vol] 28.0 mmol/L 21.0-32.0 [facility] Free T4 [Mass/Vol] 0.93 ng/dL 0.76-1.46 [facility] Urea nitrogen/Creatinine [Mass ratio] 14.5 mg/mg 10-20 [facility] Laboratory - Hematology and Cell countsOrdered By: Dyan Chavez on 09-06-2022 Erythrocyte distribution width (RBC) [Entitic vol] 53.2 fL 35.1-43.9 [facility] Erythrocyte distribution width (RBC) [Ratio] 15.8 % 11.6-14.6 [facility] Immature granulocytes/100 WBC (Bld) 0.100 % 0.0-0.9 [facility] Comment on above: IG% - Immature Granu locytes (promyelocytes, myelocytes and metamyelocytes) > 1% indicates that a LEFT SHIFT is Present. MCH (RBC) [Entitic mass] 30.7 pg 27.0-32.0 [facility] Nucleated RBC/100 WBC (Bld) [Ratio] 0 % 0-5 [facility] MCHC Auto (RBC) [Mass/Vol]Or dered By: Dyan Chavez on 09-06-2022 MCHC (RBC) [Mass/Vol] 33.6 g/dL 32-36 [facility] No Panel InformationOrdered By: Dyan Chavez on 09-06-2022 Estimated GFR (MDRD) Amer 52 mL/min >60 [facility] Comment on above: GFR Calc Estimated GFR (MDRD) Non-Af Amer 43 mL/min >60 [facility] Comment on above: Non- GFR Calc Free Triiodothyronine (T3) pg/dL 2.0 pg/mL 2.18-3.98 [facility] Thyroid Stimulating Hormone (TSH) 1.55 uIU/mL 0.358-3.74 [facility] Vitamin D 25-Hydroxy 47.3 ng/mL [facility] Comment on above: Vitamin D 25(OH) Sta tus Range Deficiency <20 ng/mL (50nmol/L) Insufficiency 20 - 30 ng/mL (50 - 75 nmol/L) Sufficiency 30 - 100 ng/mL (75 - 250 nmol/L) Toxicity >100 ng/mL (>250 nmol/L) 30.7 pg 27.0-32.0 [facility] 15.8 % 11.6-14.6 [facility] 53.2 fl 35.1-43.9 [facility] 0.100 % 0.0-0.9 [facility] 0 % 0-5 [facility] 43 mL/min >60 [facility] 52 mL/min >60 [facility] 14.5 RATIO 10-20 [facility] 28.0 mmol/L 21.0-32.0 [facility] 2.0 pg/mL 2.18-3.98 [facility] 1.55 uIU/mL 0.358-3.74 [facility] 0.93 ng/dL 0.76-1.46 [facility] 47.3 ng/mL [facility] Platelets bldOrdered By: Raymon Chavez on 09-06-2022 Platelets (Bld) [#/Vol] 181 10*3/uL 150-450 [facility] Serum or plasma calcium amanda urement (mass/volume)Ordered By: Dyan Chavez on 09-06-2022 Calcium [Mass/Vol] 8.7 mg/dL 8.5-10.1 [facility] Serum or plasma creatinine m easurement (mass/volume)Ordered By: Dyan Chavez on 09-06-2022 Creatinine [Mass/Vol] 1.65 mg/dL 0.70-1.30 [facility] Comment on above: The validity of the calculated GFR & GFRAA in patients over 70 years has not been determined. Clinical correlation is essential. Serum or plasma urea nitroge n measurement (mass/volume)Ordered By: Dyan Chavez on 09-06-2022 Urea nitrogen [Mass/Vol] 24 mg/dL 7-18 [facility] Thin prep Papanicolaou smear with manual screeningOrdered By: Dyan Chavez on 09-06-2022 Thin prep Papanicolaou smear with manual screening 5 5-15 [facility] Basophil percentageOrdered B y: Dyan Chavez on 07-17-2022 Chloride [Moles/Vol] 110 mmol/L 98-107 [facility] Glucose [Mass/Vol] 146 mg/dL 74-106 [facility] Comment on above: Fasting Glucose resu lt greater than or equal to 126 mg/dL suggests DIABETES MELLITUS per A.D.A. criteria. Potassium [Moles/Vol] 3.8 mmol/L 3.5-5.1 [facility] Sodium [Moles/Vol] 141 mmol/L 136-145 [facility] Laboratory - Chemistry and C hemistry - challengeOrdered By: Dyan Chavez on 07-17-2022 CO2 [Moles/Vol] 26.0 mmol/L 21.0-32.0 [facility] Urea nitrogen/Creatinine [Mass ratio] 17.0 mg/mg 10-20 [facility] No Panel InformationOrdered By: Dyan Chavez on 07-17-2022 Estimated GFR (MDRD) Amer 57 mL/min >60 [facility] Comment on above: GFR Calc Estimated GFR (MDRD) Non-Af Amer 47 mL/min >60 [facility] Comment on above: Non- GFR Calc Serum or plasma calcium amanda urement (mass/volume)Ordered By: Dyan Chavez on 07-17-2022 Calcium [Mass/Vol] 9.1 mg/dL 8.5-10.1 [facility] Serum or plasma creatinine m easurement (mass/volume)Ordered By: Dyan Chavez on 07-17-2022 Creatinine [Mass/Vol] 1.53 mg/dL 0.70-1.30 [facility] Comment on above: The validity of the calculated GFR & GFRAA in patients over 70 years has not been determined. Clinical correlation is essential. Serum or plasma urea nitroge n measurement (mass/volume)Ordered By: Dyan Chavez on 07-17-2022 Urea nitrogen [Mass/Vol] 26 mg/dL 04-16 [facility] Thin prep Papanicolaou smear with manual screeningOrdered By: Dyan Chavez on 07-17-2022 Thin prep Papanicolaou smear with manual screening 5 5-15 [facility] Basophil percentageon 2021 Basophil percentage 3.3 mg/dL 2.5-4.9 [facility] Work Phone: Chloride [Moles/Vol] 111 mmol/L 98-107 [facility] Work Phone: [phone] Glucose [Mass/Vol] 86 mg/dL 74-106 [facility] Work Phone: [phone] Potassium [Moles/Vol] 3.7 mmol/L 3.5-5.1 [facility] Work Phone: [phone] Sodium [Moles/Vol] 143 mmol/L 136-145 [facility] Work Phone: [phone] WBC (Bld) [#/Vol] 6.9 10*3/uL 4.4-11.0 [facility] Work Phone: Blood erythrocytes count (nu mber/volume)on 04-12-2022 RBC (Bld) [#/Vol] 4.29 10*6/uL 4.6-6.2 [facility] Work Phone: Blood hemoglobin measurement (mass/volume)on 04-12-2022 Hemoglobin (Bld) [Mass/Vol] 13.3 g/dL 13.0-16.5 [facility] Work Phone: [phone] Blood platelet mean volumeon 04-12-2022 Platelet mean volume (Bld) [Entitic vol] 11.2 fL 6.2-12.0 [facility] Work Phone: [phone] Determination of erythrocyte mean corpuscular volume (MCV)on 04-12-2022 MCV (RBC) [Entitic vol] 94.2 fL 80-94 [facility] Work Phone: [phone] Hematocrit Auto (Bld) [Volum e fraction]on 04-12-2022 Hematocrit (Bld) [Volume fraction] 40.4 % 40-54 [facility] Work Phone: Laboratory - Chemistry and C hemistry - challengeon 04-12-2022 CO2 [Moles/Vol] 29.0 mmol/L 21.0-32.0 [facility] Work Phone: Urea nitrogen/Creatinine [Mass ratio] 12.0 mg/mg 10-20 [facility] Work Phone: [phone] Laboratory - Hematology and Cell countson 04-12-2022 Erythrocyte distribution width (RBC) [Entitic vol] 54.0 fL 35.1-43.9 [facility] Work Phone: [phone] Erythrocyte distribution width (RBC) [Ratio] 15.6 % 11.6-14.6 [facility] Work Phone: [phone] MCH (RBC) [Entitic mass] 31.0 pg 27.0-32.0 [facility] Work Phone: [phone] MCHC Auto (RBC) [Mass/Vol]on 04-12-2022 MCHC (RBC) [Mass/Vol] 32.9 g/dL 32-36 [facility] Work Phone: No Panel Informationon 04-12 Estimated GFR (MDRD) Amer 52 mL/min >60 [facility] Work Phone: Comment on above: GFR Calc Estimated GFR (MDRD) Non-Af Amer 43 mL/min >60 [facility] Work Phone: Comment on above: Non- GFR Calc Parathyroid Hormone (Intact) 52.7 pg/mL 18.4-80.1 [facility] Work Phone: Platelets bldon 04-12-2022 Platelets (Bld) [#/Vol] 198 10*3/uL 150-450 [facility] Work Phone: Serum or plasma albumin amanda urement (mass/volume)on 04-12-2022 Albumin [Mass/Vol] 3.6 g/dL 3.2-5.0 [facility] Work Phone: Serum or plasma calcium amanda urement (mass/volume)on 04-12-2022 Calcium [Mass/Vol] 8.7 mg/dL 8.5-10.1 [facility] Work Phone: Serum or plasma creatinine m easurement (mass/volume)on 04-12-2022 Creatinine [Mass/Vol] 1.66 mg/dL 0.70-1.30 [facility] Work Phone: Comment on above: The validity of the calculated GFR & GFRAA in patients over 70 years has not been determined. Clinical correlation is essential. Serum or plasma urea nitroge n measurement (mass/volume)on 04-12-2022 Urea nitrogen [Mass/Vol] 20 mg/dL 7-18 [facility] Work Phone: Urine creatinine measurement (mass/volume)on 04-12-2022 Creatinine (U) [Mass/Vol] 78.70 mg/dL NO RANGE EST. [facility] Work Phone: Urine protein measurement (m ass/volume)on 04-12-2022 Protein (U) [Mass/Vol] 63.3 mg/dL 0.0-11.8 [facility] Work Phone: Urine protein/creatinine mas s ratioon 04-12-2022 Protein/Creatinine (U) [Mass ratio] 804 mg/g CRE 0-200 [facility] Work Phone: Absolute lymphocyte counton 03-28-2022 Lymphocytes Auto (Unsp spec) [#/Vol] 2.57 10*3/uL 0.83-4.51 [facility] Work Phone: Basophil percentageon 2021 Basophils/100 WBC (Bld) 0.3 % 0-1 [facility] Work Phone: Bilirubin [Mass/Vol] 0.70 mg/dL 0.20-1.00 [facility] Work Phone: Comment on above: For patients on eltr ombopag therapy, use of Dimension Frannie TBIL is not recommended. Chloride [Moles/Vol] 110 mmol/L 98-107 [facility] Work Phone: Eosinophils/100 WBC (Bld) 2.9 % 0-5 [facility] Work Phone: Glucose [Mass/Vol] 115 mg/dL 74-106 [facility] Work Phone: Comment on above: Fasting Glucose resu lt from 100 to 125 mg/dL suggests IMPAIRED HOMEOSTASIS per A.D.A. criteria. Neutrophils (Bld) [#/Vol] 4.0 10*3/uL 2.0-7.7 [facility] Work Phone: Neutrophils/100 WBC (Bld) 52.6 % 47-70 [facility] Work Phone: Potassium [Moles/Vol] 3.8 mmol/L 3.5-5.1 [facility] Work Phone: Protein [Mass/Vol] 7.3 g/dL 6.4-8.2 [facility] Work Phone: Sodium [Moles/Vol] 143 mmol/L 136-145 [facility] Work Phone: WBC (Bld) [#/Vol] 7.5 10*3/uL 4.4-11.0 [facility] Work Phone: Blood erythrocytes count (nu mber/volume)on 03-28-2022 RBC (Bld) [#/Vol] 4.21 10*6/uL 4.6-6.2 [facility] Work Phone: [phone] Blood hemoglobin measurement (mass/volume)on 03-28-2022 Hemoglobin (Bld) [Mass/Vol] 12.9 g/dL 13.0-16.5 [facility] Work Phone: [phone] Blood lymphocytes/100 leukoc yteson 03-28-2022 Lymphocytes/100 WBC (Bld) 34.1 % 19-41 [facility] Work Phone: [phone] Blood monocytes/100 leukocyt eson 03-28-2022 Monocytes/100 WBC (Bld) 9.8 % 0-10 [facility] Work Phone: [phone] Blood platelet mean volumeon 03-28-2022 Platelet mean volume (Bld) [Entitic vol] 12.0 fL 6.2-12.0 [facility] Work Phone: [phone] Determination of erythrocyte mean corpuscular volume (MCV)on 03-28-2022 MCV (RBC) [Entitic vol] 95.5 fL 80-94 [facility] Work Phone: [phone] Hematocrit Auto (Bld) [Volum e fraction]on 03-28-2022 Hematocrit (Bld) [Volume fraction] 40.2 % 40-54 [facility] Work Phone: Laboratory - Chemistry and C hemistry - challengeon 03-28-2022 ALP [Catalytic activity/Vol] 60 U/L 45-117 [facility] Work Phone: [phone] ALT [Catalytic activity/Vol] 35 U/L 16-61 [facility] Work Phone: [phone] CO2 [Moles/Vol] 28.0 mmol/L 21.0-32.0 [facility] Work Phone: [phone] Globulin (S) [Mass/Vol] 3.8 g/dL 2.2-4.2 [facility] Work Phone: [phone] Urea nitrogen/Creatinine [Mass ratio] 11.4 mg/mg 10-20 [facility] Work Phone: [phone] Laboratory - Hematology and Cell countson 03-28-2022 Erythrocyte distribution width (RBC) [Entitic vol] 55.7 fL 35.1-43.9 [facility] Work Phone: [phone] Erythrocyte distribution width (RBC) [Ratio] 15.8 % 11.6-14.6 [facility] Work Phone: [phone] Immature granulocytes/100 WBC (Bld) 0.300 % 0.0-0.9 [facility] Work Phone: [phone] Comment on above: IG% - Immature Granu locytes (promyelocytes, myelocytes and metamyelocytes) > 1% indicates that a LEFT SHIFT is Present. MCH (RBC) [Entitic mass] 30.6 pg 27.0-32.0 [facility] Work Phone: [phone] Nucleated RBC/100 WBC (Bld) [Ratio] 0 % 0-5 [facility] Work Phone: [phone] MCHC Auto (RBC) [Mass/Vol]on 03-28-2022 MCHC (RBC) [Mass/Vol] 32.1 g/dL 32-36 [facility] Work Phone: No Panel Informationon 03-28 Estimated GFR (MDRD) Amer 55 mL/min >60 [facility] Work Phone: [phone] Comment on above: GFR Calc Estimated GFR (MDRD) Non-Af Amer 45 mL/min >60 [facility] Work Phone: [phone] Comment on above: Non- GFR Calc Platelets bldon 03-28-2022 Platelets (Bld) [#/Vol] 202 10*3/uL 150-450 [facility] Work Phone: [phone] Serum or plasma albumin amanda urement (mass/volume)on 03-28-2022 Albumin [Mass/Vol] 3.5 g/dL 3.2-5.0 [facility] Work Phone: [phone] Serum or plasma albumin/glob ulin mass ratioon 03-28-2022 Albumin/Globulin [Mass ratio] 0.9 {ratio} 0.9-2.4 [facility] Work Phone: Serum or plasma calcium amanda urement (mass/volume)on 03-28-2022 Calcium [Mass/Vol] 8.5 mg/dL 8.5-10.1 [facility] Work Phone: [phone] Serum or plasma creatinine m easurement (mass/volume)on 03-28-2022 Creatinine [Mass/Vol] 1.58 mg/dL 0.70-1.30 [facility] Work Phone: Comment on above: The validity of the calculated GFR & GFRAA in patients over 70 years has not been determined. Clinical correlation is essential. Serum or plasma urea nitroge n measurement (mass/volume)on 03-28-2022 Urea nitrogen [Mass/Vol] 18 mg/dL 7-18 [facility] Work Phone: Thin prep Papanicolaou smear with manual screeningon 03-28-2022 Thin prep Papanicolaou smear with manual screening 22 U/L 15-37 [facility] Work Phone: [phone] Thin prep Papanicolaou smear with manual screening 5 5-15 [facility] Work Phone: [phone] Absolute lymphocyte counton 02-13-2022 Lymphocytes Auto (Unsp spec) [#/Vol] 2.00 10*3/uL 0.83-4.51 [facility] Work Phone: Basophil percentageon 2021 Basophils/100 WBC (Bld) 0.3 % 0-1 [facility] Work Phone: Chloride [Moles/Vol] 109 mmol/L 98-107 [facility] Work Phone: Eosinophils/100 WBC (Bld) 2.3 % 0-5 [facility] Work Phone: [phone] Glucose [Mass/Vol] 153 mg/dL 74-106 [facility] Work Phone: [phone] Comment on above: Fasting Glucose resu lt greater than or equal to 126 mg/dL suggests DIABETES MELLITUS per A.D.A. criteria. Neutrophils (Bld) [#/Vol] 4.6 10*3/uL 2.0-7.7 [facility] Work Phone: Neutrophils/100 WBC (Bld) 61.9 % 47-70 [facility] Work Phone: Potassium [Moles/Vol] 3.8 mmol/L 3.5-5.1 [facility]: Sodium [Moles/Vol] 141 mmol/L 136-145 [facility] Work Phone: WBC (Bld) [#/Vol] 7.4 10*3/uL 4.4-11.0 [facility] Work Phone: Blood erythrocytes count (nu mber/volume)on 02-13-2022 RBC (Bld) [#/Vol] 4.47 10*6/uL 4.6-6.2 [facility] Work Phone: Blood hemoglobin measurement (mass/volume)on 02-13-2022 Hemoglobin (Bld) [Mass/Vol] 13.9 g/dL 13.0-16.5 [facility] Work Phone: Blood lymphocytes/100 leukoc yteson 02-13-2022 Lymphocytes/100 WBC (Bld) 27.2 % 19-41 [facility] Work Phone: Blood monocytes/100 leukocyt eson 02-13-2022 Monocytes/100 WBC (Bld) 8.2 % 0-10 [facility] Work Phone: Blood platelet mean volumeon 02-13-2022 Platelet mean volume (Bld) [Entitic vol] 11.1 fL 6.2-12.0 [facility] Work Phone: Determination of erythrocyte mean corpuscular volume (MCV)on 02-13-2022 MCV (RBC) [Entitic vol] 92.2 fL 80-94 [facility] Work Phone: Hematocrit Auto (Bld) [Volum e fraction]on 02-13-2022 Hematocrit (Bld) [Volume fraction] 41.2 % 40-54 [facility] Work Phone: [phone] Laboratory - Chemistry and C hemistry - challengeon 02-13-2022 CO2 [Moles/Vol] 28.0 mmol/L 21.0-32.0 [facility] Work Phone: [phone] Urea nitrogen/Creatinine [Mass ratio] 11.3 mg/mg 10-20 [facility] Work Phone: [phone] Laboratory - Hematology and Cell countson 02-13-2022 Erythrocyte distribution width (RBC) [Entitic vol] 54.5 fL 35.1-43.9 [facility] Work Phone: [phone] Erythrocyte distribution width (RBC) [Ratio] 15.9 % 11.6-14.6 [facility] Work Phone: [phone] Immature granulocytes/100 WBC (Bld) 0.100 % 0.0-0.9 [facility] Work Phone: [phone] Comment on above: IG% - Immature Granu locytes (promyelocytes, myelocytes and metamyelocytes) > 1% indicates that a LEFT SHIFT is Present. MCH (RBC) [Entitic mass] 31.1 pg 27.0-32.0 [facility] Work Phone: [phone] Nucleated RBC/100 WBC (Bld) [Ratio] 0 % 0-5 [facility] Work Phone: [phone] MCHC Auto (RBC) [Mass/Vol]on 02-13-2022 MCHC (RBC) [Mass/Vol] 33.7 g/dL 32-36 [facility] Work Phone: [phone] No Panel Informationon 02-13 Estimated GFR (MDRD) Amer 55 mL/min >60 [facility] Work Phone: [phone] Comment on above: GFR Calc Estimated GFR (MDRD) Non-Af Amer 45 mL/min >60 [facility] Work Phone: [phone] Comment on above: Non- GFR Calc Thyroid Stimulating Hormone (TSH) 3.71 uIU/mL 0.358-3.74 [facility] Work Phone: Platelets bldon 02-13-2022 Platelets (Bld) [#/Vol] 209 10*3/uL 150-450 [facility] Work Phone: [phone] Serum or plasma calcium amanda urement (mass/volume)on 02-13-2022 Calcium [Mass/Vol] 8.6 mg/dL 8.5-10.1 [facility] Work Phone: [phone] Serum or plasma creatinine m easurement (mass/volume)on 02-13-2022 Creatinine [Mass/Vol] 1.59 mg/dL 0.70-1.30 [facility] Work Phone: Comment on above: The validity of the calculated GFR & GFRAA in patients over 70 years has not been determined. Clinical correlation is essential. Serum or plasma urea nitroge n measurement (mass/volume)on 02-13-2022 Urea nitrogen [Mass/Vol] 18 mg/dL 7-18 [facility] Work Phone: Thin prep Papanicolaou smear with manual screeningon 02-13-2022 Thin prep Papanicolaou smear with manual screening 4 5-15 [facility] Work Phone: No Panel Informationon 01-11 Prostate Specific Antigen Total 6.33 ng/mL 0.0-4.0 [facility] Work Phone: Comment on above: This test was perfor med using the TPSA assay method [facility]. Values obtained with differentassay methods cannot be used interchangably.When changing PSA assays in the course of monitoring apatient, additional sequential testing should be carriedout to confirm baseline values. Absolute lymphocyte counton 12-23-2021 Lymphocytes Auto (Unsp spec) [#/Vol] 2.19 10*3/uL 0.83-4.51 [facility] Work Phone: Basophil percentageon 2021 Basophils/100 WBC (Bld) 0.4 % 0-1 [facility] Work Phone: [phone] Chloride [Moles/Vol] 110 mmol/L 98-107 [facility] Work Phone: Eosinophils/100 WBC (Bld) 2.3 % 0-5 [facility] Work Phone: Glucose [Mass/Vol] 134 mg/dL 74-106 [facility] Work Phone: Comment on above: Fasting Glucose resu lt greater than or equal to 126 mg/dL suggests DIABETES MELLITUS per A.D.A. criteria. Neutrophils (Bld) [#/Vol] 4.2 10*3/uL 2.0-7.7 [facility] Work Phone: Neutrophils/100 WBC (Bld) 57.5 % 47-70 [facility] Work Phone: Potassium [Moles/Vol] 3.6 mmol/L 3.5-5.1 [facility] Work Phone: Sodium [Moles/Vol] 142 mmol/L 136-145 [facility] Work Phone: WBC (Bld) [#/Vol] 7.3 10*3/uL 4.4-11.0 [facility] Work Phone: Blood erythrocytes count (nu mber/volume)on 12-23-2021 RBC (Bld) [#/Vol] 4.37 10*6/uL 4.6-6.2 [facility] Work Phone: Blood hemoglobin measurement (mass/volume)on 12-23-2021 Hemoglobin (Bld) [Mass/Vol] 13.2 g/dL 13.0-16.5 [facility] Work Phone: Blood lymphocytes/100 leukoc yteson 12-23-2021 Lymphocytes/100 WBC (Bld) 30.2 % 19-41 [facility] Work Phone: Blood monocytes/100 leukocyt eson 12-23-2021 Monocytes/100 WBC (Bld) 9.5 % 0-10 [facility] Work Phone: Blood platelet mean volumeon 12-23-2021 Platelet mean volume (Bld) [Entitic vol] 11.1 fL 6.2-12.0 [facility] Work Phone: [phone] Determination of erythrocyte mean corpuscular volume (MCV)on 12-23-2021 MCV (RBC) [Entitic vol] 91.3 fL 80-94 [facility] Work Phone: [phone] Glucose Glucometer (BldC) [M ass/Vol]on 12-23-2021 Glucose [Mass/Vol] 124 mg/dL 74-106 [facility] Work Phone: [phone] Comment on above: MANAGEMENT OF PATIEN T CARE PER NURSING PROTOCOL Hematocrit Auto (Bld) [Volum e fraction]on 12-23-2021 Hematocrit (Bld) [Volume fraction] 39.9 % 40-54 [facility] Work Phone: [phone] Laboratory - Chemistry and C hemistry - challengeon 12-23-2021 CO2 [Moles/Vol] 28.0 mmol/L 21.0-32.0 [facility] Work Phone: [phone] Urea nitrogen/Creatinine [Mass ratio] 20.1 mg/mg 10-20 [facility] Work Phone: [phone] Laboratory - Hematology and Cell countson 12-23-2021 Erythrocyte distribution width (RBC) [Entitic vol] 51.0 fL 35.1-43.9 [facility] Work Phone: [phone] Erythrocyte distribution width (RBC) [Ratio] 15.3 % 11.6-14.6 [facility] Work Phone: [phone] Immature granulocytes/100 WBC (Bld) 0.100 % 0.0-0.9 [facility] Work Phone: [phone] Comment on above: IG% - Immature Granu locytes (promyelocytes, myelocytes and metamyelocytes) > 1% indicates that a LEFT SHIFT is Present. MCH (RBC) [Entitic mass] 30.2 pg 27.0-32.0 [facility] Work Phone: [phone] Nucleated RBC/100 WBC (Bld) [Ratio] 0 % 0-5 [facility] Work Phone: MCHC Auto (RBC) [Mass/Vol]on 12-23-2021 MCHC (RBC) [Mass/Vol] 33.1 g/dL 32-36 [facility] Work Phone: No Panel Informationon 12-23 Estimated Creatinine Clearance Calc 34.22 ml/min [facility] Work Phone: Estimated GFR (MDRD) Amer 51 mL/min >60 [facility] Work Phone: Comment on above: GFR Calc Estimated GFR (MDRD) Non-Af Amer 42 mL/min >60 [facility] Work Phone: Comment on above: Non- GFR Calc Platelets bldon 12-23-2021 Platelets (Bld) [#/Vol] 179 10*3/uL 150-450 [facility] Work Phone: Serum or plasma calcium amanda urement (mass/volume)on 12-23-2021 Calcium [Mass/Vol] 8.3 mg/dL 8.5-10.1 [facility] Work Phone: Serum or plasma creatinine m easurement (mass/volume)on 12-23-2021 Creatinine [Mass/Vol] 1.69 mg/dL 0.70-1.30 [facility] Work Phone: Comment on above: The validity of the calculated GFR & GFRAA in patients over 70 years has not been determined. Clinical correlation is essential. Serum or plasma urea nitroge n measurement (mass/volume)on 12-23-2021 Urea nitrogen [Mass/Vol] 34 mg/dL 7-18 [facility] Work Phone: Thin prep Papanicolaou smear with manual screeningon 12-23-2021 Thin prep Papanicolaou smear with manual screening 4 5-15 [facility] Work Phone: No Panel Informationon 12-21 Troponin I High Sensitivity 16 pg/mL 3.0-78.0 [facility] Work Phone: Comment on above: Please Note: New Vira t Units and Gender Specific Reference Ranges. For more information see Policy Stat Procedure Frannie High Sensitivity Troponin (TNIH) and attachments. Absolute lymphocyte counton 12-13-2021 Lymphocytes Auto (Unsp spec) [#/Vol] 2.75 10*3/uL 0.83-4.51 [facility] Work Phone: Basophil percentageon 2021 Basophils/100 WBC (Bld) 0.2 % 0-1 [facility] Work Phone: Chloride [Moles/Vol] 107 mmol/L 98-107 [facility] Work Phone: Eosinophils/100 WBC (Bld) 2.0 % 0-5 [facility] Work Phone: Glucose [Mass/Vol] 125 mg/dL 74-106 [facility] Work Phone: Comment on above: Fasting Glucose resu lt from 100 to 125 mg/dL suggests IMPAIRED HOMEOSTASIS per A.D.A. criteria. Neutrophils (Bld) [#/Vol] 4.5 10*3/uL 2.0-7.7 [facility] Work Phone: Neutrophils/100 WBC (Bld) 53.9 % 47-70 [facility] Work Phone: Potassium [Moles/Vol] 3.8 mmol/L 3.5-5.1 [facility] Work Phone: Sodium [Moles/Vol] 140 mmol/L 136-145 [facility] Work Phone: WBC (Bld) [#/Vol] 8.3 10*3/uL 4.4-11.0 [facility] Work Phone: Blood erythrocytes count (nu mber/volume)on 12-13-2021 RBC (Bld) [#/Vol] 4.81 10*6/uL 4.6-6.2 [facility] Work Phone: Blood hemoglobin measurement (mass/volume)on 12-13-2021 Hemoglobin (Bld) [Mass/Vol] 14.7 g/dL 13.0-16.5 [facility] Work Phone: Blood lymphocytes/100 leukoc yteson 12-13-2021 Lymphocytes/100 WBC (Bld) 33.0 % 19-41 [facility] Work Phone: Blood monocytes/100 leukocyt eson 12-13-2021 Monocytes/100 WBC (Bld) 10.7 % 0-10 [facility] Work Phone: Blood platelet mean volumeon 12-13-2021 Platelet mean volume (Bld) [Entitic vol] 10.9 fL 6.2-12.0 [facility] Work Phone: Determination of erythrocyte mean corpuscular volume (MCV)on 12-13-2021 MCV (RBC) [Entitic vol] 90.0 fL 80-94 [facility] Work Phone: Hematocrit Auto (Bld) [Volum e fraction]on 12-13-2021 Hematocrit (Bld) [Volume fraction] 43.3 % 40-54 [facility] Work Phone: INR in Blood by Coagulation assayon 12-13-2021 INR Coag (Bld) [Relative time] 1.1 {INR} [facility] Work Phone: Laboratory - Chemistry and C hemistry - challengeon 12-13-2021 CO2 [Moles/Vol] 29.0 mmol/L 21.0-32.0 [facility] Work Phone: Urea nitrogen/Creatinine [Mass ratio] 9.2 mg/mg 10-20 [facility] Work Phone: Laboratory - Coagulationon 0 12-13-2021 aPTT Coag (Bld) [Time] 37.3 s 24.1-36.2 [facility] Work Phone: PT Coag (PPP) [Time] 13.8 s 11.7-14.9 [facility] Work Phone: Laboratory - Hematology and Cell countson 12-13-2021 Erythrocyte distribution width (RBC) [Entitic vol] 50.0 fL 35.1-43.9 [facility] Work Phone: [phone] Erythrocyte distribution width (RBC) [Ratio] 15.1 % 11.6-14.6 [facility] Work Phone: [phone] Immature granulocytes/100 WBC (Bld) 0.200 % 0.0-0.9 [facility] Work Phone: [phone] Comment on above: IG% - Immature Granu locytes (promyelocytes, myelocytes and metamyelocytes) > 1% indicates that a LEFT SHIFT is Present. MCH (RBC) [Entitic mass] 30.6 pg 27.0-32.0 [facility] Work Phone: [phone] Nucleated RBC/100 WBC (Bld) [Ratio] 0 % 0-5 [facility] Work Phone: [phone] MCHC Auto (RBC) [Mass/Vol]on 12-13-2021 MCHC (RBC) [Mass/Vol] 33.9 g/dL 32-36 [facility] Work Phone: No Panel Informationon 12-13 Estimated GFR (MDRD) Amer 49 mL/min >60 [facility] Work Phone: Comment on above: GFR Calc Estimated GFR (MDRD) Non-Af Amer 41 mL/min >60 [facility] Work Phone: Comment on above: Non- GFR Calc Platelets bldon 12-13-2021 Platelets (Bld) [#/Vol] 199 10*3/uL 150-450 [facility] Work Phone: [phone] Serum or plasma calcium amanda urement (mass/volume)on 12-13-2021 Calcium [Mass/Vol] 9.1 mg/dL 8.5-10.1 [facility] Work Phone: [phone] Serum or plasma creatinine m easurement (mass/volume)on 12-13-2021 Creatinine [Mass/Vol] 1.74 mg/dL 0.70-1.30 [facility] Work Phone: [phone] Comment on above: The validity of the calculated GFR & GFRAA in patients over 70 years has not been determined. Clinical correlation is essential. Serum or plasma urea nitroge n measurement (mass/volume)on 12-13-2021 Urea nitrogen [Mass/Vol] 16 mg/dL 7-18 [facility] Work Phone: Thin prep Papanicolaou smear with manual screeningon 12-13-2021 Thin prep Papanicolaou smear with manual screening 4 5-15 [facility] Work Phone: Basophil percentageon 2021 Basophil percentage 2.9 mg/dL 2.5-4.9 [facility] Work Phone: Chloride [Moles/Vol] 109 mmol/L 98-107 [facility] Work Phone: Glucose [Mass/Vol] 127 mg/dL 74-106 [facility] Work Phone: Comment on above: Fasting Glucose resu lt greater than or equal to 126 mg/dL suggests DIABETES MELLITUS per A.D.A. criteria. Potassium [Moles/Vol] 3.7 mmol/L 3.5-5.1 [facility] Work Phone: Sodium [Moles/Vol] 142 mmol/L 136-145 [facility] Work Phone: Laboratory - Chemistry and C hemistry - challengeon 10-13-2021 CO2 [Moles/Vol] 29.0 mmol/L 21.0-32.0 [facility] Work Phone: Urea nitrogen/Creatinine [Mass ratio] 12.7 mg/mg 10-20 [facility] Work Phone: No Panel Informationon 10-13 Estimated Creatinine Clearance Calc 35.88 ml/min [facility] Work Phone: Estimated GFR (MDRD) Amer 58 mL/min >60 [facility] Work Phone: Comment on above: GFR Calc Estimated GFR (MDRD) Non-Af Amer 48 mL/min >60 [facility] Work Phone: [phone] Comment on above: Non- GFR Calc Serum or plasma albumin amanda urement (mass/volume)on 10-13-2021 Albumin [Mass/Vol] 3.8 g/dL 3.2-5.0 [facility] Work Phone: Serum or plasma calcium amanda urement (mass/volume)on 10-13-2021 Calcium [Mass/Vol] 9.0 mg/dL 8.5-10.1 [facility] Work Phone: [phone] Serum or plasma creatinine m easurement (mass/volume)on 10-13-2021 Creatinine [Mass/Vol] 1.50 mg/dL 0.70-1.30 [facility] Work Phone: Comment on above: The validity of the calculated GFR & GFRAA in patients over 70 years has not been determined. Clinical correlation is essential. Serum or plasma urea nitroge n measurement (mass/volume)on 10-13-2021 Urea nitrogen [Mass/Vol] 19 mg/dL 7-18 [facility] Work Phone: Urine creatinine measurement (mass/volume)on 10-13-2021 Creatinine (U) [Mass/Vol] 45.40 mg/dL NO RANGE EST. [facility] Work Phone: Urine protein measurement (m ass/volume)on 10-13-2021 Protein (U) [Mass/Vol] 65.4 mg/dL 0.0-11.8 [facility] Work Phone: [phone] Urine protein/creatinine mas s ratioon 10-13-2021 Protein/Creatinine (U) [Mass ratio] 1441 mg/g CRE 0-200 [facility] Work Phone: Absolute lymphocyte counton 09-26-2021 Lymphocytes Auto (Unsp spec) [#/Vol] 2.16 10*3/uL 0.83-4.51 [facility] Work Phone: Basophil percentageon 2020 Bilirubin [Mass/Vol] 0.30 mg/dL 0.20-1.00 [facility] Work Phone: [phone] Comment on above: For patients on eltr ombopag therapy, use of Dimension Frannie TBIL is not recommended. Chloride [Moles/Vol] 107 mmol/L 98-107 [facility] Work Phone: Eosinophils/100 WBC (Bld) 3.4 % 0-5 [facility] Work Phone: Glucose [Mass/Vol] 171 mg/dL 74-106 [facility] Work Phone: Comment on above: Fasting Glucose resu lt greater than or equal to 126 mg/dL suggests DIABETES MELLITUS per A.D.A. criteria.Please note revised GLUCOSE reference range effective 2017. Neutrophils (Bld) [#/Vol] 2.8 10*3/uL 2.0-7.7 [facility] Work Phone: Potassium [Moles/Vol] 3.7 mmol/L 3.5-5.1 [facility] Work Phone: Protein [Mass/Vol] 7.5 g/dL 6.4-8.2 [facility] Work Phone: Sodium [Moles/Vol] 144 mmol/L 136-145 [facility] Work Phone: WBC (Bld) [#/Vol] 5.8 10*3/uL 4.4-11.0 [facility] Work Phone: Blood erythrocytes count (nu mber/volume)on 09-26-2021 RBC (Bld) [#/Vol] 4.35 10*6/uL 4.6-6.2 [facility] Work Phone: Blood hemoglobin measurement (mass/volume)on 09-26-2021 Hemoglobin (Bld) [Mass/Vol] 13.2 g/dL 13.0-16.5 [facility] Work Phone: Blood lymphocytes/100 leukoc yteson 09-26-2021 Lymphocytes/100 WBC (Bld) 37.1 % 19-41 [facility] Work Phone: Blood monocytes/100 leukocyt eson 09-26-2021 Monocytes/100 WBC (Bld) 10.0 % 0-10 [facility] Work Phone: Blood platelet mean volumeon 09-26-2021 Platelet mean volume (Bld) [Entitic vol] 10.7 fL 6.2-12.0 [facility] Work Phone: Determination of erythrocyte mean corpuscular volume (MCV)on 09-26-2021 MCV (RBC) [Entitic vol] 94.0 fL 80-94 [facility] Work Phone: Hematocrit Auto (Bld) [Volum e fraction]on 09-26-2021 Hematocrit (Bld) [Volume fraction] 40.9 % 40-54 [facility] Work Phone: Laboratory - Chemistry and C hemistry - challengeon 09-26-2021 ALP [Catalytic activity/Vol] 57 U/L 45-117 [facility] Work Phone: ALT [Catalytic activity/Vol] 35 U/L 16-61 [facility] Work Phone: CO2 [Moles/Vol] 30.0 mmol/L 21.0-32.0 [facility] Work Phone: Globulin (S) [Mass/Vol] 4.1 g/dL 2.2-4.2 [facility] Work Phone: Urea nitrogen/Creatinine [Mass ratio] 11.0 mg/mg 10-20 [facility] Work Phone: Laboratory - Hematology and Cell countson 09-26-2021 Basophils/100 WBC (Unsp spec) 0.3 % 0-1 [facility] Work Phone: Erythrocyte distribution width (RBC) [Entitic vol] 50.8 fL 35.1-43.9 [facility] Work Phone: Erythrocyte distribution width (RBC) [Ratio] 14.6 % 11.6-14.6 [facility] Work Phone: Immature granulocytes/100 WBC (Bld) 0.300 % 0.0-0.9 [facility] Work Phone: Comment on above: IG% - Immature Granu locytes (promyelocytes, myelocytes and metamyelocytes) > 1% indicates that a LEFT SHIFT is Present. MCH (RBC) [Entitic mass] 30.3 pg 27.0-32.0 [facility] Work Phone: Neutrophils/100 WBC (Bld) 48.9 % 47-70 [facility] Work Phone: [phone] Nucleated RBC/100 WBC (Bld) [Ratio] 0 % 0-5 [facility] Work Phone: [phone] MCHC Auto (RBC) [Mass/Vol]on 09-26-2021 MCHC (RBC) [Mass/Vol] 32.3 g/dL 32-36 [facility] Work Phone: [phone] No Panel Informationon 09-26 Estimated GFR (MDRD) Amer 60 mL/min >60 [facility] Work Phone: [phone] Comment on above: GFR Calc Estimated GFR (MDRD) Non-Af Amer 50 mL/min >60 [facility] Work Phone: [phone] Comment on above: Non- GFR Calc Platelets bldon 09-26-2021 Platelets (Bld) [#/Vol] 190 10*3/uL 150-450 [facility] Work Phone: [phone] Serum or plasma albumin amanda urement (mass/volume)on 09-26-2021 Albumin [Mass/Vol] 3.4 g/dL 3.2-5.0 [facility] Work Phone: [phone] Serum or plasma albumin/glob ulin mass ratioon 09-26-2021 Albumin/Globulin [Mass ratio] 0.8 {ratio} 0.9-2.4 [facility] Work Phone: [phone] Serum or plasma calcium amanda urement (mass/volume)on 09-26-2021 Calcium [Mass/Vol] 8.8 mg/dL 8.5-10.1 [facility] Work Phone: [phone] Serum or plasma creatinine m easurement (mass/volume)on 09-26-2021 Creatinine [Mass/Vol] 1.46 mg/dL 0.70-1.30 [facility] Work Phone: Comment on above: The validity of the calculated GFR & GFRAA in patients over 70 years has not been determined. Clinical correlation is essential. Serum or plasma urea nitroge n measurement (mass/volume)on 09-26-2021 Urea nitrogen [Mass/Vol] 16 mg/dL 7-18 [facility] Work Phone: Thin prep Papanicolaou smear with manual screeningon 09-26-2021 Thin prep Papanicolaou smear with manual screening 29 U/L 15-37 [facility] Work Phone: Thin prep Papanicolaou smear with manual screening 7 5-15 [facility] Work Phone: CASE MANAGEMon 02-24-2020 CASE MANAGEM HNO ID: [id number] Author: Brandee Ortega) OCTAVIO Bellamy Service: Care [...] 24, 2020 TIME: 2:39 PM PAGER/CONTACT #: [phone] [facility] CASE MANAGEM HNO ID: [id number] Author: Nadine Ramirez Service: Care Management Author Type: ? Type: Care Mgt Progress Note Filed: 02/24/2020 11:55 AM Note Text: CARE MANAGEMENT PROGRESS NOTE SERVICE DATE: 02/24/2020 SERVICE TIME: 1100 LOS: 2 days IMM Follow Up Copy Given: Yes Copy given to:: Patient Package Lift Operator Package Lift Operator Name/Relationship: Daisy () Method: By Phone SIGNATURE: Nadine Ramirez PATIENT NAME: Megan Gimenez DATE: February 24, 2020 TIME: 11:55 AM PAGER/CONTACT #: [phone] Cindy [facility] CONSULTon 02-24-2020 CONSULT HNO ID: [id number] Author: Arnaud Llanes MD Service: Neurology Stroke [...] old male with hx of afib on group home eliquis, hypertension, hyperlipidemia, blind left eye, who is admitted after experiencing at least 2 falls, initial presentation to [facility], from where he was transferred to [facility]. Falls appear to be provoked, reports [...] mg by mouth DAILY (6 AM). Ipratropium [place] (ATROVENT) 0.03 % nasal spray Use 1 Elizabeth in the nose as directed. glimepiride (AMARYL) [...] up at functional movement disorder clinic at [facility] main [place]. PT/OT and disposition as recommended. Will sign off. Please page/call with questions. Arnaud Llanes MD Staff Neurologist Arnaud Llanes MD [facility], Department of Neurology CC: Referring Physician: No referring provider defined for this encounter. PCP: Jayme Yang MD [address] [place] [address] Normal [facility] Glucose Meteron 02-24-2020 Glucose [Mass/Vol] 138 mg/dL High 70-99 [facility] Comment on above: Result Comment: RN N OTIFIED Performed By: #### G LMET #### [place] [address] PLAN OF CAREon 02-24-2020 PLAN OF CARE HNO ID: [id number] Author: Morena Szymanski (Pharmacist) Service: Pharmacy Author [...] tablet Commonly known as: HYDRODIURIL, ESIDRIX Ipratropium [place] 0.03 % nasal spray Commonly known as: ATROVENT isosorbide mononitrate ER 60 mg 24 hr tablet Commonly known as: IMDUR lisinopril 40 mg tablet Commonly known as: ZESTRIL, PRINIVIL metFORMIN 1,000 mg tablet Commonly known as: GLUCOPHAGE rosuvastatin 20 mg tablet Commonly known as: CRESTOR Where to Get Your Medications These medications were sent to [facility] [address] [place] [id number] - [facility] - [phone] [place] [address] ? polyethylene glycol 3350 17 gram packet ? senna-docusate 8.6-50 mg per tablet Normal [facility] THERAPY NTon 02-24-2020 THERAPY NT HNO ID: [id number] Author: Mamie (Wildfire Prevention Specialist) FELY Manzanares/CLAIM BENEFIT SPECIALIST Service: Speech/Swallow Author Type: Speech Language Pathologist Type: Therapy (PT/OT/Speech/Resp) Filed: 02/24/2020 12:37 PM Note Text: Speech Therapy Treatment SERVICE DATE: 02/24/2020 SERVICE TIME: 1115 to 1132 ROOM: [place] [address] Nursing Recommendations: Reinforce use of swallowing strategies [...] Dysphagia, oral phase Interventions Provided: Dysphagia Therapy (87773) $ Dysphagia Therapy (62835) Billed Units: 1 unit Skilled Interventions: Provided [...] for this therapy evaluation/treatment. SIGNATURE: Mamie Manzanares CCC-CLAIM BENEFIT SPECIALIST PATIENT NAME: Megan Gimenez DATE: February 24, 2020 TIME: 12:18 PM Normal [facility] THERAPY NT HNO ID: [id number] Author: Dianna Tidwell Service: Physical Therapy Author Type: Physical Therapist Type: Therapy (PT/OT/Speech/Resp) Filed: 02/24/2020 12:05 PM Note Text: Physical Therapy Evaluation SERVICE DATE: 02/24/2020 SERVICE TIME: 4760 to 3981 ROOM: [id number] Recommended Discharge Disposition: Home Recommended Discharge [...] Diagnosis: Reduced mobility-other Interventions Provided: Evaluation;Therapeutic Exercise (56312) $ Evaluation-Moderate (11571) Billed Units: 1 unit History and examination of body systems see assessment section above. This patient?s clinical presentation is evolving. The patient required a moderate complexity evaluation. Therapeutic Exercise (89786) Treatment Minutes: 8 1 unit Skilled Intervention(s): [facility]. He was encouraged to [...] February 24, 2020 TIME: 12:01 PM Normal [facility] Basic Metabolic Panelon 05- Anion gap [Moles/Vol] 14 mmol/L Normal 9-18 [facility] Comment on above: Performed By: #### B MP ####[place] [address] Calcium [Mass/Vol] 8.3 mg/dL Low 8.5-10.2 [facility] Comment on above: Performed By: #### B MP ####[place] [address] Chloride [Moles/Vol] 105 mmol/L Normal 97-105 [facility] Comment on above: Performed By: #### B MP ####[facility] [place] [address] CO2 Blood 25 mmol/L Normal 22-30 [facility] Comment on above: Performed By: #### B MP ####[place] [address] Creatinine [Mass/Vol] 1.23 mg/dL High 0.73-1.22 [facility] Comment on above: Performed By: #### B MP ####[address] [address] Glucose [Mass/Vol] 86 mg/dL Normal 74-99 [facility] Comment on above: Result Comment: The [place] Diabetes Association (ADA) provides guidance for cutoff [...] Standards of Medical Care in Diabetes 2016; [place] Diabetes Association. Diabetes Care. 2016;39(Suppl 1). Performed By: #### B MP ####[address] [address] Potassium [Moles/Vol] see below Normal 3.7-5.1 [facility] Comment on above: Result Comment: Unab le to assay. Specimen Hemolyzed Performed By: #### B MP ####[address] [address] Sodium [Moles/Vol] 144 mmol/L Normal 136-144 [facility] Comment on above: Performed By: #### B MP ####[address] [address] Urea nitrogen [Mass/Vol] 15 mg/dL Normal 9-24 [facility] Comment on above: Performed By: #### B MP ####[address] [address] Hemogramon 02-23-2020 Erythrocyte distribution width (RBC) [Ratio] 16.6 % High 11.6-14.4 [facility] Comment on above: Performed By: #### C BC1 ####[address] [address] Hematocrit (Bld) [Volume fraction] 37.1 % Low 40.1-51.0 [facility] Comment on above: Performed By: #### C BC1 ####[place] [address] [place], [place] [address] Hemoglobin (Bld) [Mass/Vol] 12.1 g/dL Low 13.7-17.5 [facility] Comment on above: Performed By: #### C BC1 ####[facility] [place], [place] [address] MCH (RBC) [Entitic mass] 29.1 pg Normal 25.7-32.2 [facility] Comment on above: Performed By: #### C BC1 ####[facility] [place], [place] [address] MCHC (RBC) [Mass/Vol] 32.6 % Normal 32.3-36.5 [facility] Comment on above: Performed By: #### C BC1 ####[address] [address] MCV (RBC) [Entitic vol] 89.2 fL Normal 83.2-95.6 [facility] Comment on above: Performed By: #### C BC1 ####[address] [address] Platelet mean volume (Bld) [Entitic vol] 11.2 fL Normal 8.7-12.0 [facility] Comment on above: Performed By: #### C BC1 ####[address] [address] Platelets (Bld) [#/Vol] 240 thou/cmm Normal 141-365 [facility] Comment on above: Performed By: #### C BC1 ####[address] [address] RBC (Bld) [#/Vol] 4.16 mil/cmm Low 4.63-6.08 [facility] Comment on above: Performed By: #### C BC1 ####[address] [address] RDW SD 53.9 fl High 36.1-45.8 [facility] Comment on above: Performed By: #### C BC1 ####[address] [address] WBC (Bld) [#/Vol] 8.26 thou/cmm Normal 4.23-9.07 [facility] Comment on above: Performed By: #### C BC1 ####[facility]1 [place] [id number] MDRD GFRon 02-23-2020 GFR/1.73 sq M predicted among non-blacks MDRD (S/P/Bld) [Vol rate/Area] 57.28 mL/min/{1.73_m2} Normal >60mL/min/ 1.73m2 [facility] Comment on above: Result Comment: If t he patient is , multiply the result by 1.210. Performed By: #### G LMET #### [place] [address] Magnesium Bloodon 02-23-2020 Magnesium [Mass/Vol] 1.7 mg/dL Normal 1.7-2.3 [facility] Comment on above: Performed By: #### M AG ####[place] [address] NURSING PROGon 02-23-2020 NURSING PROG HNO ID: [id number] Author: Danielle (Rn) OCTAVIO Sandoval Service: ? Author Type: Registered Nurse Type: Nursing Progress Note Filed: 02/23/2020 4:12 AM Note Text: Nursing Progress Note Patient Name: Megan Gimenez Patient Location: [place] [id number] Daily Note: 0012; RN paged sound [phone] RANGE MOUNTER Jimmy to come see pt due to [...] stating he will be going back to [facility] tomorrow morning. Pt continues to refuse to answer any orientation questions for RN. RN will continue to monitor. This note was completed by: Danielle Sandoval RN [facility] PLAN OF CAREon 02-23-2020 PLAN OF CARE HNO ID: [id number] Author: Arnaud Llanes MD Service: Neurology Stroke [...] to follow. Arnaud Llanes MD Staff Neurologist [facility] PROGRESSon 02-23-2020 PROGRESS HNO ID: [id number] Author: Laureano Linton Service: Hospital Medicine Author Type: Physician Type: Progress Notes Filed: 02/23/2020 3:15 PM Note Text: DEPARTMENT OF HOSPITAL MEDICINE PROGRESS NOTE SERVICE DATE: 02/23/2020 SERVICE TIME: 3:01 PM Hospital Medicine/Primary Attending: Laureano Linton MD NIGHT AND WEEKEND COVERAGE: After 7pm please page [phone] CHIEF COMPLAINT: Tremors SUBJECTIVE: Patient is awake [...] or extraconal mass. ?Correlate with clinical symptoms 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 ? Transcribe Date/Time: Feb 22 2020 [...] 23, 2020 TIME: 3:01 PM PAGER/CONTACT #: [phone] Normal [facility] PROGRESS HNO ID: [id number] Author: Shiv Brown APRN.EMMANUEL Service: Hospital Medicine [...] February 23, 2020 12:29 AM Shiv Brown APRN.MENTAL HEALTH TECH Normal [facility] THERAPY NTon 02-23-2020 THERAPY NT HNO ID: [id number] Author: Mamie (Wildfire Prevention Specialist) FELY Manzanares/CLAIM BENEFIT SPECIALIST Service: Speech/Swallow Author Type: Speech Language Pathologist Type: Therapy (PT/OT/Speech/Resp) Filed: 02/23/2020 9:49 AM Note Text: Speech Therapy Clinical Swallow Evaluation SERVICE DATE: 02/23/2020 SERVICE TIME: 899 to 928 ROOM: [place] [address] Nursing Recommendations: Reinforce use of swallowing strategies [...] oral phase Interventions Provided: Clinical Swallow Evaluation (24534) $ Clinical Swallow Evaluation (29940) Billed Units: 1 unit Total Treatment Time [...] for this therapy evaluation/treatment. SIGNATURE: Mamie Manzanares CCC-CLAIM BENEFIT SPECIALIST PATIENT NAME: Megan Gimenez DATE: February 23, 2020 TIME: 9:36 AM [facility] ALLIED HEALTHon 02-22-2020 ALLIED HEALTH HNO ID: [id number] Author: Chaplain Wyatt (Chaplain) Service: Spiritual Care Author Type: Type: Allied Health Filed: 02/22/2020 1:21 AM Note Text: SPIRITUALCARE Spiritual Care Visit- Brief Note Name: Megan Gimenez Date: February 22, 2020 Notes: Trauma 2 fall Staff evaluating patient Follow up needed Psychiatric Np Signature: Chaplain Edmundo To contact the Spiritual Care Department: Please call [phone] or Page the On-Call Psychiatric Np at pager [phone] Thank you for the opportunity to be of service. This is an electronically created document. IF PRINTED, PLEASE DO NOT REMOVE FROM THE CHART OR MODIFY PRINTED COPY. [facility] Activated PTTon 02-22-2020 aPTT Coag (Bld) [Time] 28.7 s Normal 23.0-32.4 [facility] Comment on above: Result Comment: Unfr actionated [...] laboratory APTT reagent in use throughout the [facility]. Performed By: #### G LMET #### [place] [address] aPTT Coag (Bld) [Time] 29.1 s Normal 23.0-32.4 [facility] Comment on above: Result Comment: Unfr actionated [...] laboratory APTT reagent in use throughout the [facility]. 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 Last discharge within 30 days: No Advance Directive: Current Advance Directive: Health Care Power of Consulting Solution Manager;Living Will In Chart: No Furniture Painter Attempted to Assist with AD Completion: No [...] Spouse Name of Informant: : Natasharuba Antunez [phone] Functional Status: Independent Does Patient Currently Receive Any Community Services or Home Care?: None Equipment Prior to Admission: Aerosols/Intermittent positive breathing/Respiratory Treatments;Walker;Glucomet er SOCIAL: Living Arrangements: Home Lives With: Spouse Financial Resources: RetiredPrimary Contact: Extended Emergency Contact Information Primary Emergency Contact: Natasha Gimenez Address: [address] [place] [address] Mobile Relation: Spouse Supportive Patient Contact:: Yes [...] plan for meeting these needs: Home Vs [facility] Patient's perception of need for this admission: Fall, Alt Mental Status Medication Adherance I am convinced of the importance of my prescription medication: 0 - Agree Completely I worry that my prescription medication will do more harm than good to me : 0 - Disagree Completely I feel financially burdened by my [id number] expenses for my prescription medication:: 0 - Disagree Completely Risk Score: 0 Patient is categorized as: Low risk < 2 Are you interested in bedside delivery of your medications? No Is Patient Psychosocially Complex?: No ASSESSMENT AND PLAN: Medical Needs: Medical Needs: Two or more chronic diseases Psychosocial Needs: Psychosocial Needs: None FREEDOM OF CHOICE EXPLAINED: [place] of Choice Given: Yes Level of Care Discussed: Home Care;[facility] Facility Financial Disclosure Provided: Yes Financial Disclosure Comments: Informed of [facility] connected facilities POTENTIAL TRANSITION PLANS Home Care;[facility] Facility/Intermediate Care Facility Information was obtained from [...] course. SIGNATURE: CANDY Guzman PATIENT NAME: Megan Giemnez DATE: February 22, 2020 TIME: 12:31 PM PAGER/CONTACT #: [phone] Normal [facility] CT BRAIN WO IVCONon 02-22-20 CT BRAIN WO IVCON * * *Final Report* * * DATE OF EXAM: Feb 22 2020 1:29AM [facility] 0[facility] - CT BRAIN WO IVCON / [...] soft tissue contusion. No acute intracranial abnormality. 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 Transcribe Date/Time: Feb 22 2020 1:53A Dictated by : ANA MARIA ISABEL MD This examination was interpreted and the report reviewed and electronically signed by: ANA MARIA ISABEL MD on Feb 22 2020 1:56AM EST Normal [facility] Comprehensive Metabolic Pane chanda 02-22-2020 Albumin [Mass/Vol] 3.5 g/dL Low 3.9-4.9 [facility] Comment on above: Performed By: #### G LMET #### [facility] [address] [place], [place] [address] ALP [Catalytic activity/Vol] 44 U/L Normal 38-113 [facility] Comment on above: Performed By: #### G LMET #### [facility] [address] [place], [place] [address] ALT [Catalytic activity/Vol] 35 U/L Normal 10-54 [facility] Comment on above: Performed By: #### G LMET #### [facility] [address] [place], [place] [address] Anion gap [Moles/Vol] 11 mmol/L Normal 9-18 [facility] Comment on above: Performed By: #### G LMET #### [facility] [address] [place], [place] [address] AST [Catalytic activity/Vol] 48 U/L High 14-40 [facility] Comment on above: Performed By: #### G LMET #### [facility] [address] [place], [place] [address] Bilirubin [Mass/Vol] 0.2 mg/dL Normal 0.2-1.3 [facility] Comment on above: Performed By: #### G LMET #### [facility] [address] [place], [place] [address] Calcium [Mass/Vol] 8.2 mg/dL Low 8.5-10.2 [facility] Comment on above: Performed By: #### G LMET #### [facility] [address] [place], [place] [address] Chloride [Moles/Vol] 107 mmol/L High 97-105 [facility] Comment on above: Performed By: #### G LMET #### [facility] [address] [place], [place] [address] CO2 Blood 26 mmol/L Normal 22-30 [facility] Comment on above: Performed By: #### G LMET #### [facility] [address] [place], [place] [address] Creatinine [Mass/Vol] 1.42 mg/dL High 0.73-1.22 [facility] Comment on above: Performed By: #### G LMET #### [facility] [address] [place], [place] [address] Glucose [Mass/Vol] 87 mg/dL Normal 74-99 [facility] Comment on above: Result Comment: The [place] Diabetes Association (ADA) provides guidance for cutoff [...] Standards of Medical Care in Diabetes 2016; [place] Diabetes Association. Diabetes Care. 2016;39(Suppl 1). Performed By: #### G LMET #### [facility] [address] [place], [place] [address] Potassium [Moles/Vol] 3.1 mmol/L Low 3.7-5.1 [facility] Comment on above: Performed By: #### G LMET #### [facility] [address] [place], [place] [address] Protein [Mass/Vol] 6.2 g/dL Low 6.3-8.0 [facility] Comment on above: Performed By: #### G LMET #### [facility] [address] [place], [place] [address] Sodium [Moles/Vol] 144 mmol/L Normal 136-144 [facility] Comment on above: Performed By: #### G LMET #### [facility] [address] [place], [place] [address] Urea nitrogen [Mass/Vol] 22 mg/dL Normal 9-24 [facility] Comment on above: Performed By: #### G LMET #### [facility] [address] [place], [place] [address] ED NOTEon 02-22-2020 ED NOTE HNO ID: [id number] Author: Tracie HolmanRn) Cedric RN Service: Emergency Medicine Author Type: Registered Nurse Type: ED Notes Filed: 02/22/2020 2:29 PM Note Text: Rn Richa schwarzre of pts mental status changes and the Dr Linton is awre also pt given 20mg ivp hydralazine. Room is not clean yet Normal [facility] ED NOTE HNO ID: [id number] Author: Tracie HolmanRn) OCTAVIO Steele Service: Emergency Medicine Author Type: Registered Nurse Type: ED Notes Filed: 02/22/2020 2:11 PM Note Text: Dr Linton aware of pts mentation. No new orders at this time. Normal [facility] ED NOTE HNO ID: [id number] Author: Tracie HolmanRn) Cedric, RN Service: Emergency Medicine Author Type: Registered Nurse Type: ED Notes Filed: 02/22/2020 2:09 PM Note Text: Pt thinks it's 1970 and going to war. Pt states he sees people running at [facility] they are being shot at. Normal [facility] ED NOTE HNO ID: [id number] Author: Tracie HolmanRn) Cedric, RN Service: Emergency Medicine Author Type: Registered Nurse Type: ED Notes Filed: 02/22/2020 2:07 PM Note Text: Sound paged, pts mental status concerns Normal [facility] ED NOTE HNO ID: [id number] Author: Tracie HolmanRn) Cedric, RN Service: Emergency Medicine Author Type: Registered Nurse Type: ED Notes Filed: 02/22/2020 1:59 PM Note Text: Updated pts that he has a room assigned and gave room number and floor phone number Normal [facility] ED NOTE HNO ID: [id number] Author: Tracie HolmanRnBritt Steele RN Service: Emergency Medicine Author Type: Registered Nurse Type: ED Notes Filed: 02/22/2020 1:45 PM Note Text: SPOKE TO DR LINTON ABOUT PTS BP, HE WILL REVIEW PTS CHART AND ENTER NEW ORDERS [facility] ED NOTE HNO ID: [id number] Author: Tracie HolmanRnBritt Steele RN Service: Emergency Medicine Author Type: Registered Nurse Type: ED Notes Filed: 02/22/2020 1:33 PM Note Text: MD PAGED FOR BP 202/87 [facility] ED NOTE HNO ID: [id number] Author: Tracie HolmanRnBritt Steele RN Service: Emergency Medicine Author Type: Registered Nurse Type: ED Notes Filed: 02/22/2020 1:06 PM Note Text: RN UNAVAIL FOR REPORT [facility] ED NOTE HNO ID: [id number] Author: Vane Reeder RN Service: Emergency Medicine Author Type: Registered Nurse Type: ED Notes Filed: 02/22/2020 11:49 AM Note Text: Spoke with Sound in regards to BP. Will order IV PRN medication. [facility] ED NOTE HNO ID: [id number] Author: Vane Reeder RN Service: Emergency Medicine Author Type: Registered Nurse Type: ED Notes Filed: 02/22/2020 11:35 AM Note Text: FSBS 79 Normal [facility] ED NOTE HNO ID: [id number] Author: Yaritza Chavez RN Service: Nursing Author Type: Registered Nurse Type: ED Notes Filed: 02/22/2020 6:33 AM Note Text: Nurse called MRI AND told that patient is a candidate for MRI, states that they are unsure of when they will send for patient. [facility] ED NOTE HNO ID: [id number] Author: Yaritza Chavez, RN Service: Nursing Author Type: Registered Nurse Type: ED Notes Filed: 02/22/2020 5:58 AM Note Text: Natasha Gimenez called to obtain MRI screening form. Dr. Eagle giving pt's update over the phone at this time. MRI screening form faxed over. [facility] ED NOTE HNO ID: [id number] Author: Tawana (Rn) OCTAVIO Guzman Service: Emergency Medicine Author Type: Registered Nurse Type: ED Notes Filed: 02/22/2020 3:51 AM Note Text: Pt COVID-19 swab obtained from pt's R nare. Swab specimen labeled @ BS and sent to lab. [facility] ED NOTE HNO ID: [id number] Author: Tawana HolmanRn) OCTAVIO Guzman Service: Emergency Medicine Author Type: Registered Nurse Type: ED Notes Filed: 02/22/2020 3:03 AM Note Text: This RN to assume temporary care of pt @ this time to cover lunch of primary RN. Report received from OCTAVIO Vigil [facility] ED NOTE HNO ID: [id number] Author: Tawana (Rn) OCTAVIO Guzman Service: Emergency Medicine Author Type: Registered Nurse Type: ED Notes Filed: 02/22/2020 1:36 AM Note Text: Yellow trauma II sheet signed by this RN and Dr. Blas and placed in pt's chart [facility] ED NOTE HNO ID: [id number] Author: Tawana HolmanRn) OCTAVIO Guzman Service: Emergency Medicine Author Type: Registered Nurse Type: ED Notes Filed: 02/22/2020 1:35 AM Note Text: Pt moved to room 9 - Pt remains on cardiac/SpO2 monitoring. [facility] ED NOTE HNO ID: [id number] Author: Tawana HolmanRn) OCTAVIO Guzman Service: Emergency Medicine Author Type: Registered Nurse Type: ED Notes Filed: 02/22/2020 1:19 AM Note Text: Pt began answering question and responding verbally to Dr. Shaikh [facility] ED NOTE HNO ID: [id number] Author: Rajan Cruz Service: ? Author Type: ? Type: ED Notes Filed: 02/22/2020 1:07 AM Note Text: [facility] Expected date: 02/22/20 Expected time: 1:00 AM Means of arrival: [facility] Comments: [facility] trauma consult [facility] ED NOTE HNO ID: [id number] Author: Tawana Ortega) OCTAVIO Guzman Service: Emergency Medicine Author Type: Registered Nurse Type: ED Notes Filed: 02/22/2020 1:19 AM Note Text: Pt arrives tremoring and unresponsive, tremoring with his shoulders and arm while his tongue was sticking out Normal [facility] ED PROV NOTEon 02-22-2020 ED PROV NOTE HNO ID: [id number] Author: Jacque Eagle MD Service: Emergency Medicine Author Type: Physician Type: ED Provider Notes Filed: 02/22/2020 4:50 AM Note Text: ED Provider Note Patient Name: Megan Gimenez SERVICE DATE: 02/22/20 History No chief complaint on file. Megan Gimenez is a 74 y/o male with known past medical history of mild dementia who is presenting as a transfer from [facility] where he initially presented after a fall with head injury. Per report patient tripped over his dog causing him to fall backwards hitting his head. Unclear loss of consciousness. During his stay [facility] he did receive a CT brain and cervical spine both which were unremarkable. He is currently on Eliquis however no bleeds were seen. His mental status does appear to be slightly depressed however he is having what appears to be focal seizures in his upper extremities. He was transferred to [facility] for a trauma consultation. In route [...] is a 74-year-old male patient transferred from [facility] after a fall. Patient reportedly tripped [...] emergency department as a trauma transfer from [facility] where he initially presented after a [...] I did speak with Dr. Loredo, neuro donor services specialist, who feels that this is appropriate. 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 The patient received ativan, imaging, IV Fluids and Consultation by trauma during the time that critical care was provided.I discussed the plan of care with the Resident and agree with the findings documented. Critical care time excludes separately billed procedures. MD Jacque Quiñonez MD 02/22/20 0450 Normal [facility] HISTORY PHYSICALon 0 HISTORY PHYSICAL HNO ID: [id number] Author: Melina Hallman Service: Hospital Medicine Author Type: Nurse Practitioner Type: HANDP Filed: 02/22/2020 8:48 AM Note Text: -- Attestation signed by Laureano Linton at 02/22/2020 10:41 AM Attending Note I have personally performed a face to face assessment of the patient and have reviewed the PA/POULTRY VACCINATOR note. My mahmood findings include: History is as noted on nurse practitioner history. Patient had been doing well until yesterday when he tripped over his dog and hit his head. He said generalized tremors affecting his upper body primarily his upper extremities. He was sent to [facility] as a trauma and a CT of the brain and cervical spine showed a small left frontal contusion. X-rays of the pelvis were negative. He was transferred to [facility] for more comprehensive evaluation. Exam is BP [...] NIGHT AND WEEKEND COVERAGE: After 7pm call #[phone] Chief complaint: tremor HPI: This is a 74 y/o male with prior history of atrial fibrillation on eliquis, HTN, diabetes, HLD, rheumatoid arthritis and colitis. Patient lives at home with and is AANDOX3 and independent at baseline. 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 Reportedly after this fall the patient started exhibiting generalized tremors in both extremities and he was taken to the emergency department in [place]. There is concern that he was having a seizure and he was given a milligram of Ativan at [facility] ED. He continued to exhibit this tremulous activity in bilateral upper extremities and altered mental status so he was given additional Versed in route [facility]. On arrival he was exhibiting these tremors [...] diabetes, rheumatoid arthritis colitis, hyperlipidemia , per [facility] records. GCS on arrival 13. HPI/CHIEF [...] Result IMPRESSION: No acute fracture or dislocation. Cotton Farmworker: PSCB Transcribe Date/Time: Feb 22 2020 1:43A [...] 1. CT H and XR P at [facility] (02/21) 2. CT H/N, CXR and [...] questions or concerns Mon-Sat 6a-5p please page [phone]. After 5pm and on Weekends and Holidays, please page [phone] if in ICU or [phone] if on RNF. Attending Note I personally saw and examined the patient. I reviewed the resident's note. I agree with the resident's assessment and plan unless otherwise noted. As above Possible seizures No traumatic injuries OK to admit to medicine Signature: Raphael Lima MD Date: 02/22/2020 Time: 10:11 AM Normal [facility] Hemogram/Diffon 02-22-2020 Abs Immature Grans 0.03 thou/cmm Normal 0.00-0.05 [facility] Comment on above: Performed By: #### G LMET #### [place] [address] Abs Neut (ANC) 4.09 thou/cmm Normal 1.78-5.38 [facility] Comment on above: Performed By: #### G LMET #### [place] [address] Abs. Baso 0.02 thou/cmm Normal 0.01-0.08 [facility] Comment on above: Performed By: #### G LMET #### [place] [address] Abs. Parke 0.66 thou/cmm Normal 0.30-0.82 [facility] Comment on above: Performed By: #### G LMET #### [place] [address] Basophils/100 WBC (Bld) 0.3 % Normal [facility] Comment on above: Performed By: #### G LMET #### [facility] [address] [place], [place] [address] Eosinophils (Bld) [#/Vol] 0.20 thou/cmm Normal 0.04-0.54 [facility] Comment on above: Performed By: #### G LMET #### [facility] [address] [place], [place] [address] Eosinophils/100 WBC (Bld) 3.1 % Normal [facility] Comment on above: Performed By: #### G LMET #### [address] [address] Erythrocyte distribution width (RBC) [Ratio] 16.5 % High 11.6-14.4 [facility] Comment on above: Performed By: #### G LMET #### [place] [address] Hematocrit (Bld) [Volume fraction] 33.0 % Low 40.1-51.0 [facility] Comment on above: Performed By: #### G LMET #### [address] [address] Hemoglobin (Bld) [Mass/Vol] 10.6 g/dL Low 13.7-17.5 [facility] Comment on above: Performed By: #### G LMET #### [place] [address] Immature Grans 0.50 % Normal [facility] Comment on above: Performed By: #### G LMET #### [facility] [address] [place], [place] [address] Lymphocytes (Bld) [#/Vol] 1.53 thou/cmm Normal 0.84-2.85 [facility] Comment on above: Performed By: #### G LMET #### [address] [address] Lymphocytes/100 WBC (Bld) 23.4 % Normal [facility] Comment on above: Performed By: #### G LMET #### [facility] [address] [place] [address] MCH (RBC) [Entitic mass] 28.7 pg Normal 25.7-32.2 [facility] Comment on above: Performed By: #### G LMET #### [facility] [address] [place] [address] MCHC (RBC) [Mass/Vol] 32.1 % Low 32.3-36.5 [facility] Comment on above: Performed By: #### G LMET #### [facility] [address] [place] [address] MCV (RBC) [Entitic vol] 89.4 fL Normal 83.2-95.6 [facility] Comment on above: Performed By: #### G LMET #### [facility] [address] [place] [address] Monocytes/100 WBC (Bld) 10.1 % Normal [facility] Comment on above: Performed By: #### G LMET #### [facility] [address] [place] [address] Platelet mean volume (Bld) [Entitic vol] 10.8 fL Normal 8.7-12.0 [facility] Comment on above: Performed By: #### G LMET #### [facility] [address] [place] [address] Platelets (Bld) [#/Vol] 212 thou/cmm Normal 141-365 [facility] Comment on above: Performed By: #### G LMET #### [facility] [address] [place] [address] RBC (Bld) [#/Vol] 3.69 mil/cmm Low 4.63-6.08 [facility] Comment on above: Performed By: #### G LMET #### [facility] [address] [place] [address] RDW SD 54.3 fl High 36.1-45.8 [facility] Comment on above: Performed By: #### G LMET #### [place] [address] Seg Neutrophil 62.6 % Normal [facility] Comment on above: Performed By: #### G LMET #### [facility] [address] [place] [address] WBC (Bld) [#/Vol] 6.54 thou/cmm Normal 4.23-9.07 [facility] Comment on above: Performed By: #### G LMET #### [facility] [address] [place] [address] Hgb A1con 02-22-2020 HbA1c (Bld) [Mass fraction] 128 mg/dL Normal [facility] Comment on above: Performed By: #### H A1C ####[facility] [place] [address] HbA1c (Bld) [Mass fraction] 6.1 % High 4.0-5.6 [facility] Comment on above: Result Comment: [facility] Diabetes Association guidelines indicate that the patients with HgA1c in the range 5.7 ? 6.4% are at increased risk for development of diabetes, and intervention by lifestyle modification may be beneficial. HgA1c greater or equal to 6.5% is considered diagnostic of diabetes. Performed By: #### H A1C ####[facility] [place] [address] Lactic Acidon 02-22-2020 Lactate [Moles/Vol] 1.1 mmol/L Normal 0.5-2.2 [facility] Comment on above: Performed By: #### E DLAG #### [place] [address] Lipase Bloodon 02-22-2020 Lipase Blood 22 U/L Normal 16-61 [facility] Comment on above: Performed By: #### L IP #### [facility] [address] [place] [address] MRI BRAIN WO IVCONon 020 MRI BRAIN WO IVCON * * *Final Report* * * DATE OF EXAM: Feb 22 2020 3:13PM [facility] 0294 - MRI BRAIN WO IVCON / [...] or extraconal mass. Correlate with clinical symptoms 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 Transcribe Date/Time: Feb 22 2020 3:41P Dictated by : FELICITAS MAY MD This examination was interpreted and the report reviewed and electronically signed by: FELICITAS MAY MD on Feb 22 2020 3:58PM EST Normal [facility] Magnesium Bloodon 02-22-2020 Magnesium [Mass/Vol] 1.7 mg/dL Normal 1.7-2.3 [facility] Comment on above: Performed By: #### G LMET #### [place] [address] NURSING PROGon 02-22-2020 NURSING PROG HNO ID: [id number] Author: Avani (Rn) OCTAVIO Xie Service: ? Author Type: Registered Nurse Type: Nursing Progress Note Filed: 02/22/2020 5:10 PM Note Text: Nursing Progress Note Vital Allied Health Professional Assessment Note Patient Name: Megan Gimenez Patient Location: [place] [address] [address]* Patient Vitals for the past 4 hrs: [...] note was completed by: Avani Xie RN [facility] PLAN OF CAREon 02-22-2020 PLAN OF CARE HNO ID: [id number] Author: Morena Szymanski (Pharmacist) Service: Pharmacy Author Type: Pharmacist Type: Plan of Care Filed: 02/23/2020 4:55 PM Note Text: MEDICATION RECONCILIATION Patient Name:Minerva Gimenez : 1945 Reconciliation: Yes 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 Pt. states dose has increased. Last RX on 02/11/20 is 60 mg daily. Medications Added: Ipratropium [place] (ATROVENT) 0.03 % nasal spray Use 1 Elizabeth in the nose as directed. Pt. 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 Yes Ipratropium [place] (ATROVENT) 0.03 % nasal spray Use 1 Elizabeth in the nose as directed. Yes glimepiride (AMARYL) 2 mg tablet Take 2 mg by mouth once daily. Yes Sam Rankin (Technical Solution Architect) pager [phone] phone [phone] February 22, 2020 10:01 AM Normal [facility] PROGRESSon 02-22-2020 PROGRESS HNO ID: [id number] Author: Avani (Rn) OCTAVIO Xie Service: ? 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 Linton [facility] PROGRESS HNO ID: [id number] Author: Avani (Rn) OCTAVIO Xie Service: ? [...] ok to still give UC meds Normal [facility] Protimeon 02-22-2020 INR Coag (PPP) [Relative time] 0.99 {INR} Normal 0.90-1.30 [facility] Comment on above: Result Comment: Marly min K Antagonist (VKA) Therapeutic Range: INR 2 to 3 (Target INR of 2.5) Note: For patients treated with VKA drugs, such as warfarin, the [place] [employer] 2012 Guideline recommends [...] [phone] Performed By: #### G LMET #### [place] [address] PT Coag (PPP) [Time] 10.7 s Normal 9.7-13.0 [facility] Comment on above: Performed By: #### G LMET #### [facility] [address] [place], [place] [address] INR Coag (PPP) [Relative time] 0.98 {INR} Normal 0.90-1.30 [facility] Comment on above: Result Comment: Marly min K Antagonist (VKA) Therapeutic Range: INR 2 to 3 (Target INR of 2.5) Note: For patients treated with VKA drugs, such as warfarin, the [place] [employer] 2012 Guideline recommends [...] [phone] Performed By: #### P T #### [facility] [address] [place], [place] [address] PT Coag (PPP) [Time] 10.6 s Normal 9.7-13.0 [facility] Comment on above: Performed By: #### P T #### [facility] [address] [place], [place] [address] Rapid, COVID 19on 02-22-2020 Rapid, COVID 19 Negative Normal Negative [facility] Comment on above: Result Comment: This test has been authorized by the FDA under an Emergency Use Authorization (EUA). Performed By: #### G LMET #### [facility] [address] [place], [place] [address] TSHon 02-22-2020 TSH Qn 1.560 uIU/mL Normal 0.270-4.20 0 [facility] Comment on above: Result Comment: Preg [...] result. Performed By: #### G LMET #### [place] [address] Troponin T, High Sens.on Troponin T, High Sens. 36 ng/L High 0-11 [facility] Comment on above: Result Comment: Yovana ents [...] result. Performed By: #### G LMET #### [address] [address] Troponin T, High Sens. 41 ng/L High 0-11 [facility] Comment on above: Result Comment: Yovana ents [...] result. Performed By: #### G LMET #### [address] [address] Troponin T, High Sens. 43 ng/L High 0-11 [facility] Comment on above: Result Comment: Yovana ents [...] result. Performed By: #### T ROPT #### [place] [address] Type and Screenon 02-22-2020 ABO group Nom (Bld) AB Normal [facility] Comment on above: Performed By: #### T &S #### [place] [address] Comment Emergency Room Normal [facility] Comment on above: Performed By: #### T &S #### [place] [address] RH Type Positive Normal [facility] Comment on above: Performed By: #### T &S #### [place] [address] Urine Drug Screenon 02-22-20 20 Urine Alcohol <11 Normal 0-11 [facility] Comment on above: Performed By: #### U DRG3 #### [place] [address] Urine Amphetamine Negative Normal NEGATIVE [facility] Comment on above: Performed By: #### U DRG3 #### [place] [address] Urine Barbiturates Negative Normal NEGATIVE [facility] Comment on above: Performed By: #### U DRG3 #### [place] [address] Urine Benzodiazepine Negative Normal NEGATIVE [facility] Comment on above: Performed By: #### U DRG3 #### [place] [address] Urine Cocaine Metab Negative Normal NEGATIVE [facility] Comment on above: Performed By: #### U DRG3 #### [facility] [address] [place], [place] [address] Urine Opiates Negative Normal NEGATIVE [facility] Comment on above: Performed By: #### U DRG3 #### [facility] [address] [place], [place] [address] Urine Oxycodone Negative Normal NEGATIVE [facility] Comment on above: Performed By: #### U DRG3 #### [facility] [address] [place], [place] [address] Urine PCP Negative Normal NEGATIVE [facility] Comment on above: Result Comment: Test [...] the same specimen through the laboratory at ([phone]) if contacted within 48 hours of initial 1. Substance Abuse and Mental Health Services Administration (2012). Clinical Drug Testing in Primary Care Technical Assistance Publication Series 32. Department of Health and Human Services, [place], p.10. Performed By: #### U DRG3 #### [facility] [address] [place], [place] [address] Urine THC Negative Normal NEGATIVE [facility] Comment on above: Performed By: #### U DRG3 #### [facility] [address] [place], [place] [address] XR PELVIS 1V APon 02-22-2020 XR PELVIS [...] hardware. IMPRESSION: No acute fracture or dislocation. 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 Transcribe Date/Time: Feb 22 2020 1:43A Dictated by : SUZIE MARTINEZ MD This examination was interpreted and the report reviewed and electronically signed by: SUZIE MARTINEZ MD on Feb 22 2020 1:51AM EST Normal [facility] Chart Maintenanceon 04-12-20 17 HbA1c 6.4 % Invalid Interpretation Code [employer] Work Phone: Office Visit: [facility] 03-22-20 17 Dietary management education, guidance, and counseling (procedure) yes Invalid Interpretation Code [employer] Work Phone: Documentation of current medications (procedure) Done Invalid Interpretation Code [employer] Work Phone: Fall risk assessment No Invalid Interpretation Code [facility] Work Phone: [phone] Protein mass conc Done [facility] Work Phone: [phone] Lab Report: Basic Metabolic Profile (BMP)on 02-07-2017 Anion gap 9 mmol/L Invalid Interpretation Code 5-15 [facility] Work Phone: [phone] Anion gap molar conc 9 mmol/L 5-[address] [facility] Work Phone: [phone] BUN/Creatinine Ratio 19.4 RATIO Invalid Interpretation Code 10-20 [facility] Work Phone: [phone] Calcium 8.8 mg/dL Invalid Interpretation Code 8.5-10.1 [facility] Work Phone: [phone] Chloride 104 mmol/L Invalid Interpretation Code 98-107 [facility] Work Phone: [phone] CO2 30.0 mmol/L Invalid Interpretation Code 21.0-32.0 [facility] Work Phone: [phone] CO2 ppres (BldV) 30.0 mmol/L 21.0-32.0 [facility] Work Phone: Creatinine 1.44 mg/dL High 0.70-1.30 [employer] Work Phone: [phone] eGFR (non-black) 51 mL/min/{1.73_m2} Low >60 [employer] Work Phone: [phone] eGFR (non-black) 62 mL/min/{1.73_m2} Invalid Interpretation Code >60 [employer] Work Phone: [phone] EST GFR - AA 62 mL/min >60 [employer] Work Phone: [phone] Glucose 130 mg/dL High 70-110 [employer] Work Phone: [phone] Glucose mass conc 130 mg/dL High 70-110 [employer] Work Phone: [phone] Potassium 3.6 mmol/L Invalid Interpretation Code 3.5-5.1 [facility] Work Phone: [phone] Sodium 143 mmol/L Invalid Interpretation Code 136-145 [employer] [facility] Work Phone: [phone] Urea nitrogen 28 mg/dL High 7-18 [facility] [facility] Work Phone: [phone] Lab Report: CBC-Complete Blo od Cnt No Diffon 02-07-2017 Erythrocyte distribution width Ratio (RBC) 50.1 fL High 35.1-43.9 [employer] Work Phone: [phone] Erythrocyte distribution width Ratio (RBC) 14.8 % High 11.6-14.6 [facility] [facility] Work Phone: [phone] Erythrocytes (RBC) 4.61 10*6/uL Invalid Interpretation Code 4.6-6.2 [employer] [facility] Work Phone: [phone] Hematocrit (HCT) 42.7 % Invalid Interpretation Code 40-54 [facility] Work Phone: [phone] Hematocrit Volume Fraction (Bld) 42.7 % 40-54 [facility] Work Phone: [phone] Hemoglobin (HGB) 14.1 g/dL Invalid Interpretation Code 13.0-16.5 [facility] Work Phone: [phone] MCH 30.6 pg Invalid Interpretation Code 27.0-32.0 [facility] Work Phone: [phone] MCH Entitic mass (RBC) 30.6 pg 27.0-32.0 [facility] Work Phone: [phone] MCHC 33.0 G/GL Invalid Interpretation Code 32-36 [facility] Work Phone: [phone] MCHC mass conc (RBC) 33.0 G/GL 32-[address] [facility] Work Phone: [phone] MCV 92.6 fL Invalid Interpretation Code 80-94 [facility] Work Phone: [phone] MCV Entitic volume (RBC) 92.6 fL 80-94 [facility] Work Phone: [phone] Platelet mean volume Entitic volume (Bld) 10.9 fL 6.2-12.0 [facility] Work Phone: [phone] Platelets 204 10*3/mm3 Invalid Interpretation Code 150-450 [facility] Work Phone: [phone] Platelets #/vol (Bld) 204 10*3/mm3 150-450 [facility] Work Phone: [phone] PMV by Rosy 10.9 fL Invalid Interpretation Code 6.2-12.0 [facility] Work Phone: [phone] RBC #/vol (Bld) 4.61 10*6/uL 4.6-6.2 [facility] Work Phone: [phone] RDW-CA 14.8 % High 11.6-14.6 [facility] Work Phone: [phone] red blood cell distribution width, size density 50.1 fL High 35.1-43.9 [facility] Work Phone: [phone] WBC #/vol (Bld) 6.4 10*3/uL 4.4-11.0 [facility] Work Phone: [phone] WBC (Leukocytes) 6.4 10*3/uL Invalid Interpretation Code 4.4-11.0 [facility] Work Phone: [phone] Office Visiton 12-13-2016 Dietary management education, guidance, and counseling (procedure) yes Invalid Interpretation Code [facility] Work Phone: Documentation of current medications (procedure) Done Invalid Interpretation Code [employer] Phone: [phone] Protein mass conc Done [facility] Work Phone: [phone] Replaced Document: Oscar Ly 12-13-2016 EKG QRS axis -27 deg [facility] Work Phone: [phone] electrocardiogram interpretation Sinus Rhythm -Inferior infarct -probably not recent -Poor R-wave progression -nonspecific -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 ABNORMAL [facility] [employer] Work Phone: [phone] P [place] -1 deg [facility] Work Phone: [phone] P wave axis, electrocardiogram -1 deg Invalid Interpretation Code [employer] Phone: [place] Interval 166 ms [facility] Work Phone: [phone] [place] interval, electrocardiogram 166 ms Invalid Interpretation Code [facility] Work Phone: Pulse (Heart Rate) 71 /min Invalid Interpretation Code [facility] Work Phone: QRS axis, electrocardiogram -27 deg Invalid Interpretation Code [facility] Work Phone: QRS Duration 92 ms [facility] Work Phone: QRS duration, electrocardiogram 92 ms Invalid Interpretation Code [employer] Phone: QT Interval new path ms [facility] [facility] Work Phone: QT interval, electrocardiogram new path ms Invalid Interpretation Code [facility] [facility] Work Phone: QTc Lino 411 ms [employer] Work Phone: T [place] -1 deg [employer] Work Phone: T wave axis, electrocardiogram -1 deg Invalid Interpretation Code [facility] Work Phone: [phone] 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 Left ventricular Ejection fraction 70 % Invalid Interpretation Code [facility] Work Phone: [phone] Tobacco smoking status NHIS Former smoker [facility] Work Phone: [phone] Tobacco use CPHS Former smoker Invalid Interpretation Code [facility] Work Phone: [phone] Gram stain for investigation of transfusion reaction Microscopic observation Gram stain Nom (Unsp spec) [facility] Work Phone: [phone] Vital Signs Date Time Vital Sign Value Performing Clinician Faci lity 02-15-2025 18:52-0400 Body temperature 98.2 [degF] Dr. Jayme Yang MD Work Phone: [facility] 02-15-2025 18:52-0400 Diastolic blood pressure 74 mm[Hg] Dr. Jayme Yang MD Work Phone: [facility] 02-15-2025 18:52-0400 Heart rate 86 /min Dr. Jayme Yang MD Work Phone: [facility] 02-15-2025 18:52-0400 Respiratory rate 20 /min Dr. Jayme Yang MD Work Phone: [facility] 02-15-2025 18:52-0400 SaO2% (BldA) [Mass fraction] 93 % Dr. Jayme Yang MD Work Phone: [facility] 02-15-2025 18:52-0400 Systolic blood pressure 138 mm[Hg] Dr. Jayme Yang MD Work Phone: [facility] 02-15-2025 16:31-0400 Body height 165.[address] Jayme Yang MD Work Phone: [facility] 02-15-2025 16:31-0400 Body mass index (BMI) [Ratio] 29.3 kg/m2 Dr. Jayme Yang MD Work Phone: [facility] 02-15-2025 16:31-0400 Body weight 80.[address] Jayme Yang MD Work Phone: [facility] 11-27-2024 08:24-0500 Body height 170.[address] Jayme Yang MD Work Phone: [phone] [address] 11-27-2024 08:24-0500 Body mass index (BMI) [Ratio] 28.5 kg/m2 Dr. Jayme Yang MD Work Phone: [phone] [address] 11-27-2024 08:24-0500 Body weight 82.[address] Jayme Yang MD Work Phone: [phone] [address] 11-27-2024 08:24-0500 Diastolic blood pressure 78 mm[Hg] Dr. Jayme Yang MD Work Phone: [phone] [place] [address] 11-27-2024 08:24-0500 Heart rate 75 /min Dr. Jayme Yang MD Work Phone: [phone] [place] [address] 11-27-2024 08:24-0500 Respiratory rate 16 /min Dr. Jayme Yang MD Work Phone: [phone] [address] 11-27-2024 08:24-0500 Systolic blood pressure 144 mm[Hg] Dr. Jayme Yang MD Work Phone: [phone] [place] [address] 11-17-2024 09:00-0500 Body mass index (BMI) [Ratio] 27.7 kg/m2 Dr. Jayme Yang MD Work Phone: [phone] [place] [address] 11-17-2024 09:00-0500 Body temperature 96.9 [degF] Dr. Jayme Yang MD Work Phone: [phone] [place] [address] 11-17-2024 09:00-0500 Body weight 80.[address] Jayme Yang MD Work Phone: [phone] [place] [address] 11-17-2024 09:00-0500 Diastolic blood pressure 78 mm[Hg] Dr. Jayme Yang MD Work Phone: 3(793)206-547402 [address] 11-17-2024 09:00-0500 Heart rate 64 /min Dr. Jayme Yang MD Work Phone: 1(082)319-790102 [address] 11-17-2024 09:00-0500 Respiratory rate 20 /min Dr. Jayme Yang MD Work Phone: 6(932)861-702608 [place] [address] 11-17-2024 09:00-0500 SaO2% (BldA) [Mass fraction] 94 % Dr. Jayme Yang MD Work Phone: 8(563)742-790008 [place] [address] 11-17-2024 09:00-0500 Systolic blood pressure 178 mm[Hg] Dr. Jayme Yang MD Work Phone: 5(895)993-399408 [place] [address] 10-06-2024 09:32-0500 Body mass index (BMI) [Ratio] 28.5 kg/m2 Dr. Jayme Yang MD Work Phone: 0(874)173-064908 [place] [address] 10-06-2024 09:32-0500 Body temperature 97.7 [degF] Dr. Jayme Yang MD Work Phone: 4(478)825-716508 [place] [address] 10-06-2024 09:32-0500 Body weight 82.[address] Jayme Yang MD Work Phone: 8(812)317-786808 [place] [address] 10-06-2024 09:32-0500 Diastolic blood pressure 78 mm[Hg] Dr. Jayme Yang MD Work Phone: 1(432)046-772008 [place] [address] 10-06-2024 09:32-0500 Heart rate 68 /min Dr. Jayme Yang MD Work Phone: 0(288)699-114608 [place] [address] 10-06-2024 09:32-0500 Respiratory rate 16 /min Dr. Jayme Yang MD Work Phone: 5(979)688-002208 [place] [address] 10-06-2024 09:32-0500 SaO2% (BldA) [Mass fraction] 95 % Dr. Jayme Yang MD Work Phone: 0(967)774-944708 [place] [address] 10-06-2024 09:32-0500 Systolic blood pressure 168 mm[Hg] Dr. Jayme Yang MD Work Phone: 6(119)468-859008 [place] [address] 12-11-2023 09:24-0400 Body height 170.[address] Jayme Yang Work Phone: 3(178)185-636208 [place] [address] 12-11-2023 09:24-0400 Body mass index (BMI) [Ratio] 34 kg/m2 Dr. Jayme Yang Work Phone: [facility] 12-11-2023 09:24-0400 Body weight 98.[address] Jayme Yang Work Phone: [facility] 12-11-2023 09:24-0400 Diastolic blood pressure 79 mm[Hg] Dr. Jayme Yang Work Phone: [facility] 12-11-2023 09:24-0400 Heart rate 80 /min Dr. Jayme Yang Work Phone: [facility] 12-11-2023 09:24-0400 Respiratory rate 18 /min Dr. Jayme Yang Work Phone: [facility] 12-11-2023 09:24-0400 Systolic blood pressure 146 mm[Hg] Dr. Jayme Yang Work Phone: [facility] 11-21-2023 07:44-0500 Body mass index (BMI) [Ratio] 34.2 kg/m2 Dr. Jayme Yang Work Phone: [facility] 11-21-2023 07:44-0500 Body temperature 97.1 [degF] Dr. Jayme Yang Work Phone: [facility] 11-21-2023 07:44-0500 Body weight 99.[address] Jayme Yang Work Phone: [facility] 11-21-2023 07:44-0500 Diastolic blood pressure 89 mm[Hg] Dr. Jayme Yang Work Phone: [facility] 11-21-2023 07:44-0500 Heart rate 80 /min Dr. Jayme Yang Work Phone: [facility] 11-21-2023 07:44-0500 Respiratory rate 20 /min Dr. Jayme Yang Work Phone: [facility] 11-21-2023 07:44-0500 SaO2% (BldA) [Mass fraction] 95 % Dr. Jayme Yang Work Phone: [facility] 11-21-2023 07:44-0500 Systolic blood pressure 172 mm[Hg] Dr. Jayme Yang Work Phone: [facility] 11-19-2023 08:58-0500 Body mass index (BMI) [Ratio] 34.7 kg/m2 Dr. Jayme Yang Work Phone: [facility] 11-19-2023 08:58-0500 Body temperature 98.7 [degF] Dr. Jayme Yang Work Phone: [facility] 11-19-2023 08:58-0500 Body weight 100.[address] Jayme Yang Work Phone: [facility] 11-19-2023 08:58-0500 Diastolic blood pressure 74 mm[Hg] Dr. Jayme Yang Work Phone: [facility] 11-19-2023 08:58-0500 Heart rate 81 /min Dr. Jayme Yang Work Phone: [facility] 11-19-2023 08:58-0500 Respiratory rate 18 /min Dr. Jayme Yang Work Phone: [facility] 11-19-2023 08:58-0500 SaO2% (BldA) [Mass fraction] 92 % Dr. Jayme Yang Work Phone: [facility] 11-19-2023 08:58-0500 Systolic blood pressure 149 mm[Hg] Dr. Jayme Yang Work Phone: [facility] 11-13-2023 13:18-0500 Heart rate 91 /min Dr. Jayme Yang Work Phone: [facility] 11-13-2023 12:58-0500 Body temperature 98 [degF] Dr. Jayme Yang Work Phone: [facility] 11-13-2023 12:58-0500 Diastolic blood pressure 94 mm[Hg] Dr. Jayme Yang Work Phone: [facility] 11-13-2023 12:58-0500 Respiratory rate 18 /min Dr. Jayme Yang Work Phone: [facility] 11-13-2023 12:58-0500 SaO2% (BldA) [Mass fraction] 93 % Dr. Jayme Yang Work Phone: [facility] 11-13-2023 12:58-0500 Systolic blood pressure 176 mm[Hg] Dr. aJyme Yang Work Phone: 1(750)748-494102 [address] 11-13-2023 08:11-0500 Inhaled oxygen flow rate 2 L/min Dr. Jayme Yang Work Phone: 9(429)838-478802 [address] 11-11-2023 22:52-0500 Body height 170.[address] Jayme Yang Work Phone: 2(008)450-049508 [place] [address] 11-11-2023 22:52-0500 Body mass index (BMI) [Ratio] 34.3 kg/m2 Dr. Jayme Yang Work Phone: 1(999)023-425335 [place] [address] 11-11-2023 22:52-0500 Body weight 99.[address] Jayme Yang Work Phone: 6(310)000-001402 [address] 11-11-2023 22:37-0500 Body temperature 98 [degF] Dr. Jayme Yang Work Phone: 1(687)456-481335 [place] [address] 11-11-2023 22:37-0500 Diastolic blood pressure 84 mm[Hg] Dr. Jayme Yang Work Phone: [facility] 11-11-2023 22:37-0500 Heart rate 89 /min Dr. Jayme Yang Work Phone: [facility] 11-11-2023 22:37-0500 Respiratory rate 24 /min Dr. Jayme Yang Work Phone: [facility] 11-11-2023 22:37-0500 SaO2% (BldA) [Mass fraction] 95 % Dr. Jayme Yang Work Phone: [facility] 11-11-2023 22:37-0500 Systolic blood pressure 163 mm[Hg] Dr. Jayme Yang Work Phone: [facility] 11-11-2023 19:48-0500 Inhaled oxygen flow rate 2 L/min Dr. Jayme Yang Work Phone: 7(768)127-284708 [place] [address] 11-11-2023 19:45-0500 Body height 170.[address] Jayme Yang Work Phone: 1(983)335-368908 [place] [address] 11-11-2023 19:45-0500 Body mass index (BMI) [Ratio] 35.4 kg/m2 Dr. Jayme Yang Work Phone: 4(722)724-663108 [place] [address] 11-11-2023 19:45-0500 Body weight 102.[address] Jayme Yang Work Phone: 1(003)597-250208 [place] [address] 10-16-2023 08:07-0500 Body height 170.[address] Jayme Yang Work Phone: 6(761)542-723008 [place] [address] 10-16-2023 08:07-0500 Body mass index (BMI) [Ratio] 33.2 kg/m2 Dr. Jayme Yang Work Phone: 8(855)458-710708 [place] [address] 10-16-2023 08:07-0500 Body temperature 98.2 [degF] Dr. Jayme Yang Work Phone: 3(763)672-817808 [place] [address] 10-16-2023 08:07-0500 Body weight 96.[address] Jayme Yang Work Phone: 2(732)684-275608 [place] [address] 10-16-2023 08:07-0500 Diastolic blood pressure 90 mm[Hg] Dr. Jayme Yang Work Phone: 4(490)385-384308 [place] [address] 10-16-2023 08:07-0500 Heart rate 83 /min Dr. Jayme Yang Work Phone: 3(272)312-007208 [place] [address] 10-16-2023 08:07-0500 Respiratory rate 18 /min Dr. Jayme Yang Work Phone: 5(099)036-330908 [place] [address] 10-16-2023 08:07-0500 SaO2% (BldA) [Mass fraction] 91 % Dr. Jayme Yang Work Phone: [facility] 10-16-2023 08:07-0500 Systolic blood pressure 166 mm[Hg] Dr. Jayme Yang Work Phone: [facility] 10-09-2023 08:15-0500 Body mass index (BMI) [Ratio] 34.7 kg/m2 Dr. Jayme Yang Work Phone: [facility] 10-09-2023 08:15-0500 Body temperature 97.9 [degF] Dr. Jayme Yang Work Phone: [facility] 10-09-2023 08:15-0500 Body weight 100.[address] Jayme Yang Work Phone: 4(607)048-473102 [address] 10-09-2023 08:15-0500 Diastolic blood pressure 76 mm[Hg] Dr. Jayme Yang Work Phone: 2(615)720-455535 [place] [address] 10-09-2023 08:15-0500 Heart rate 69 /min Dr. Jayme Yang Work Phone: [facility] 10-09-2023 08:15-0500 Respiratory rate 16 /min Dr. Jayme Yang Work Phone: [facility] 10-09-2023 08:15-0500 SaO2% (BldA) [Mass fraction] 91 % Dr. Jayme Yang Work Phone: 3(312)339-473635 [place] [address] 10-09-2023 08:15-0500 Systolic blood pressure 155 mm[Hg] Dr. Jayme Yang Work Phone: [facility] 10-02-2023 08:15-0500 Body mass index (BMI) [Ratio] 33.5 kg/m2 Dr. Jayme Yang Work Phone: [facility] 10-02-2023 08:15-0500 Body temperature 98.5 [degF] Dr. Jayme Yang Work Phone: [facility] 10-02-2023 08:15-0500 Body weight 97.[address] Jayme Yang Work Phone: 3(179)796-077408 [place] [address] 10-02-2023 08:15-0500 Diastolic blood pressure 86 mm[Hg] Dr. Jayme Yang Work Phone: 2(180)397-994008 [place] [address] 10-02-2023 08:15-0500 Heart rate 86 /min Dr. Jayme Yang Work Phone: 3(959)549-985208 [place] [address] 10-02-2023 08:15-0500 Respiratory rate 18 /min Dr. Jayme Yang Work Phone: 4(613)005-535708 [place] [address] 10-02-2023 08:15-0500 SaO2% (BldA) [Mass fraction] 91 % Dr. Jayme Yang Work Phone: 7(866)117-611208 [place] [address] 10-02-2023 08:15-0500 Systolic blood pressure 173 mm[Hg] Dr. Jayme Yang Work Phone: 7(091)289-163608 [place] [address] 09-25-2023 08:28-0500 Body mass index (BMI) [Ratio] 33.7 kg/m2 Dr. Jayme Yang Work Phone: 2(102)854-424208 [place] [address] 09-25-2023 08:28-0500 Body temperature 98.1 [degF] Dr. Jayme Yang Work Phone: 4(740)814-885008 [place] [address] 09-25-2023 08:28-0500 Body weight 97.[address] Jayme Yang Work Phone: 8(556)321-157908 [place] [address] 09-25-2023 08:28-0500 Diastolic blood pressure 76 mm[Hg] Dr. Jayme Yang Work Phone: 7(999)695-205108 [place] [address] 09-25-2023 08:28-0500 Heart rate 84 /min Dr. Jayme Yang Work Phone: 2(174)805-248408 [place] [address] 09-25-2023 08:28-0500 Respiratory rate 16 /min Dr. Jayme Yang Work Phone: 4(888)912-523208 [place] [address] 09-25-2023 08:28-0500 SaO2% (BldA) [Mass fraction] 92 % Dr. Jayme Yang Work Phone: 6(023)502-679102 [address] 09-25-2023 08:28-0500 Systolic blood pressure 163 mm[Hg] Dr. Jayme Yang Work Phone: [facility] 09-24-2023 07:42-0500 SaO2% (BldA) [Mass fraction] 97 % Dr. Jayme Yang Work Phone: [facility] 09-24-2023 07:35-0500 Body temperature 97.8 [degF] Dr. Jayme Yang Work Phone: [facility] 09-24-2023 07:35-0500 Diastolic blood pressure 91 mm[Hg] Dr. Jayme Yang Work Phone: [facility] 09-24-2023 07:35-0500 Heart rate 87 /min Dr. Jayme Yang Work Phone: [facility] 09-24-2023 07:35-0500 Respiratory rate 18 /min Dr. Jayme Yang Work Phone: [facility] 09-24-2023 07:35-0500 Systolic blood pressure 168 mm[Hg] Dr. Jayme Yang Work Phone: [facility] 09-24-2023 04:53-0500 Inhaled oxygen flow rate 5 L/min Dr. Jayme Yang Work Phone: [facility] 09-20-2023 16:01-0500 Body height 170.[address] Jayme Yang Work Phone: [facility] 09-20-2023 16:01-0500 Body mass index (BMI) [Ratio] 34.2 kg/m2 Dr. Jayme Yang Work Phone: [facility] 09-20-2023 16:01-0500 Body weight 99.[address] Jayme Yang Work Phone: [facility] 09-20-2023 15:45-0500 Body temperature 98.1 [degF] Dr. Jayme Yang Work Phone: [facility] 09-20-2023 15:45-0500 Diastolic blood pressure 89 mm[Hg] Dr. Jayme Yang Work Phone: [facility] 09-20-2023 15:45-0500 Heart rate 91 /min Dr. Jayme Yang Work Phone: [facility] 09-20-2023 15:45-0500 Respiratory rate 16 /min Dr. Jayme Yang Work Phone: [facility] 09-20-2023 15:45-0500 Systolic blood pressure 159 mm[Hg] Dr. Jayme Yang Work Phone: [facility] 09-20-2023 14:40-0500 SaO2% (BldA) [Mass fraction] 93 % Dr. Jayme Yang Work Phone: 3(266)334-279302 [address] 09-20-2023 12:37-0500 Body height 170.[address] Jayme Yang Work Phone: 1(966)446-589608 [place] [address] 09-20-2023 12:37-0500 Body mass index (BMI) [Ratio] 34 kg/m2 Dr. Jayme Yang Work Phone: 3(179)359-222335 [place] [address] 09-20-2023 12:37-0500 Body weight 98.[address] Jayme Yang Work Phone: 4(922)149-336602 [address] 09-18-2023 08:31-0500 Body height 170.[address] Jayme Yang Work Phone: 3(647)269-277602 [address] 09-18-2023 08:27-0500 Body mass index (BMI) [Ratio] 33.7 kg/m2 Dr. Jayme Yang Work Phone: [facility] 09-18-2023 08:27-0500 Body temperature 97.5 [degF] Dr. Jayme Yang Work Phone: 8(345)482-692202 [address] 09-18-2023 08:27-0500 Body weight 97.[address] Jayme Yang Work Phone: 0(404)727-282735 [place] [address] 09-18-2023 08:27-0500 Diastolic blood pressure 81 mm[Hg] Dr. Jayme Yang Work Phone: 4(347)987-979735 [place] [address] 09-18-2023 08:27-0500 Heart rate 86 /min Dr. Jayme Yang Work Phone: [facility] 09-18-2023 08:27-0500 Respiratory rate 18 /min Dr. Jayme Yang Work Phone: [facility] 09-18-2023 08:27-0500 SaO2% (BldA) [Mass fraction] 92 % Dr. Jayme Yang Work Phone: [facility] 09-18-2023 08:27-0500 Systolic blood pressure 160 mm[Hg] Dr. Jayme Yang Work Phone: [facility] 09-11-2023 08:27-0500 Body mass index (BMI) [Ratio] 34.3 kg/m2 Dr. Jayme Yang Work Phone: [facility] 09-11-2023 08:27-0500 Body temperature 97.3 [degF] Dr. Jayme Yang Work Phone: [facility] 09-11-2023 08:27-0500 Body weight 99.[address] Jayme Yang Work Phone: [facility] 09-11-2023 08:27-0500 Diastolic blood pressure 77 mm[Hg] Dr. Jayme Yang Work Phone: [facility] 09-11-2023 08:27-0500 Heart rate 73 /min Dr. Jayme Yang Work Phone: [facility] 09-11-2023 08:27-0500 Respiratory rate 18 /min Dr. Jayme Yang Work Phone: [facility] 09-11-2023 08:27-0500 SaO2% (BldA) [Mass fraction] 92 % Dr. Jayme Yang Work Phone: [facility] 09-11-2023 08:27-0500 Systolic blood pressure 149 mm[Hg] Dr. Jayme Yang Work Phone: [facility] 09-05-2023 10:28-0500 SaO2% (BldA) [Mass fraction] 93 % Dr. Jayme Yang Work Phone: [facility] 09-05-2023 10:00-0500 Respiratory rate 18 /min Dr. Jayme Yang Work Phone: [facility] 09-05-2023 09:57-0500 Body temperature 98.1 [degF] Dr. Jayme Yang Work Phone: [facility] 09-05-2023 09:57-0500 Diastolic blood pressure 92 mm[Hg] Dr. Jayme Yang Work Phone: [facility] 09-05-2023 09:57-0500 Heart rate 82 /min Dr. Jayme Yang Work Phone: [facility] 09-05-2023 09:57-0500 Systolic blood pressure 165 mm[Hg] Dr. Jayme Yang Work Phone: [facility] 09-05-2023 07:39-0500 Inhaled oxygen flow rate 2 L/min Dr. Jayme Yang Work Phone: [facility] 09-04-2023 14:00-0500 Body temperature 98.9 [degF] Dr. Jayme Yang Work Phone: [facility] 09-04-2023 14:00-0500 Diastolic blood pressure 97 mm[Hg] Dr. Jayme Yang Work Phone: [facility] 09-04-2023 14:00-0500 SaO2% (BldA) [Mass fraction] 95 % Dr. Jayme Yang Work Phone: [facility] 09-04-2023 14:00-0500 Systolic blood pressure 183 mm[Hg] Dr. Jayme Yang Work Phone: [facility] 09-04-2023 09:49-0500 Heart rate 68 /min Dr. Jayme Yang Work Phone: [facility] 09-04-2023 09:28-0500 Respiratory rate 19 /min Dr. Jayme Yang Work Phone: 2(710)040-036568 [place] [address] 09-04-2023 08:15-0500 Inhaled oxygen flow rate 2 L/min Dr. Jayme Yang Work Phone: [facility] 09-04-2023 06:41-0500 Body temperature 97.3 [degF] Dr. Jayme Yang Work Phone: 6(414)333-899902 [address] 09-04-2023 06:41-0500 Diastolic blood pressure 99 mm[Hg] Dr. Jayme Yang Work Phone: 5(979)792-796702 [address] 09-04-2023 06:41-0500 SaO2% (BldA) [Mass fraction] 97 % Dr. Jayme Yang Work Phone: 6(518)209-673908 [place] [address] 09-04-2023 06:41-0500 Systolic blood pressure 204 mm[Hg] Dr. Jayme Yang Work Phone: 2(615)882-087702 [address] 09-04-2023 06:12-0500 Body height 170.[address] Jayme Yang Work Phone: 7(844)662-985602 [address] 09-04-2023 06:12-0500 Body mass index (BMI) [Ratio] 33.1 kg/m2 Dr. Jayme Yang Work Phone: 1(025)936-479302 [address] 09-04-2023 06:12-0500 Body weight 96.[address] Jayme Yang Work Phone: 4(331)407-659702 [address] 09-04-2023 03:16-0500 Heart rate 60 /min Dr. Jayme Yang Work Phone: 9(648)977-051102 [address] 09-04-2023 03:16-0500 Respiratory rate 20 /min Dr. Jayme Yang Work Phone: 3(946)531-462235 [place] [address] 09-03-2023 23:18-0500 Body height 167.[address] Jayme Yang Work Phone: 8(522)682-057808 [place] [address] 09-03-2023 23:18-0500 Body mass index (BMI) [Ratio] 35.9 kg/m2 Dr. Jayme Yang Work Phone: 0(112)163-343835 [place] [address] 09-03-2023 23:18-0500 Body weight 100.[address] Jayme Yang Work Phone: [facility] 08-13-2023 05:56-0500 Body mass index (BMI) [Ratio] 34.7 kg/m2 Dr. Jayme Yang Work Phone: [facility] 08-13-2023 05:56-0500 Body temperature 97.2 [degF] Dr. Jayme Yang Work Phone: [facility] 08-13-2023 05:56-0500 Body weight 97.[address] Jayme Yang Work Phone: [facility] 08-13-2023 05:56-0500 Diastolic blood pressure 85 mm[Hg] Dr. Jayme Yang Work Phone: [facility] 08-13-2023 05:56-0500 Heart rate 74 /min Dr. Jayme Yang Work Phone: [facility] 08-13-2023 05:56-0500 SaO2% (BldA) [Mass fraction] 95 % Dr. Jayme Yang Work Phone: [facility] 08-13-2023 05:56-0500 Systolic blood pressure 174 mm[Hg] Dr. Jayme Yang Work Phone: [facility] 08-07-2023 12:07-0500 Body temperature 97.3 [degF] Dr. Jayme Yang Work Phone: [facility] 08-07-2023 12:07-0500 Diastolic blood pressure 77 mm[Hg] Dr. Jayme Yang Work Phone: [facility] 08-07-2023 12:07-0500 Heart rate 63 /min Dr. Jayme Yang Work Phone: [facility] 08-07-2023 12:07-0500 Respiratory rate 16 /min Dr. Jayme Yang Work Phone: [facility] 08-07-2023 12:07-0500 SaO2% (BldA) [Mass fraction] 92 % Dr. Jayme Yang Work Phone: [facility] 08-07-2023 12:07-0500 Systolic blood pressure 147 mm[Hg] Dr. Jayme Yang Work Phone: [facility] 08-07-2023 11:45-0500 Inhaled oxygen flow rate 4 L/min Dr. Jayme Yang Work Phone: [facility] 08-07-2023 08:56-0500 Body height 167.[address] Jayme Yang Work Phone: [facility] 08-07-2023 08:56-0500 Body mass index (BMI) [Ratio] 35.2 kg/m2 Dr. Jayme Yang Work Phone: 3(574)999-665335 [place] [address] 08-07-2023 08:56-0500 Body weight [address] Jayme Yang Work Phone: 6(058)440-727835 [place] [address] 07-02-2023 09:01-0400 Body mass index (BMI) [Ratio] 33.9 kg/m2 Dr. Jayme Yang Work Phone: [facility] 07-02-2023 09:01-0400 Body temperature 98.2 [degF] Dr. Jayme Yang Work Phone: [facility] 07-02-2023 09:01-0400 Body weight 95.[address] Jayme Yang Work Phone: [facility] 07-02-2023 09:01-0400 Diastolic blood pressure 72 mm[Hg] Dr. Jayme Yang Work Phone: [facility] 07-02-2023 09:01-0400 Heart rate 80 /min Dr. Jayme Yang Work Phone: [facility] 07-02-2023 09:01-0400 Respiratory rate 18 /min Dr. Jayme Yang Work Phone: [facility] 07-02-2023 09:01-0400 SaO2% (BldA) [Mass fraction] 92 % Dr. Jayme Yang Work Phone: [facility] 07-02-2023 09:01-0400 Systolic blood pressure 158 mm[Hg] Dr. Jayme Yang Work Phone: [facility] 05-24-2023 09:43-0400 Body height 170.[address] Jayme Yang Work Phone: [facility] 05-24-2023 09:43-0400 Body mass index (BMI) [Ratio] 34.9 kg/m2 Dr. Jayme Yang Work Phone: [facility] 05-24-2023 09:43-0400 Body weight 101.[address] Jayme Yang Work Phone: [facility] 05-24-2023 09:43-0400 Diastolic blood pressure 81 mm[Hg] Dr. Jayme Yang Work Phone: [facility] 05-24-2023 09:43-0400 Heart rate 74 /min Dr. Jayme Yang Work Phone: [facility] 05-24-2023 09:43-0400 Respiratory rate 20 /min Dr. Jayme Yang Work Phone: [facility] 05-24-2023 09:43-0400 SaO2% (BldA) [Mass fraction] 93 % Dr. Jayme Yang Work Phone: [facility] 05-24-2023 09:43-0400 Systolic blood pressure 150 mm[Hg] Dr. Jayme Yang Work Phone: [facility] 05-21-2023 05:44-0400 Body mass index (BMI) [Ratio] 34.4 kg/m2 Dr. Jayme Yang Work Phone: [facility] 05-21-2023 05:44-0400 Body temperature 96.5 [degF] Dr. Jayme Yang Work Phone: [facility] 05-21-2023 05:44-0400 Body weight 99.[address] Jayme Yang Work Phone: [facility] 05-21-2023 05:44-0400 Diastolic blood pressure 85 mm[Hg] Dr. Jayme Yang Work Phone: [facility] 05-21-2023 05:44-0400 Heart rate 74 /min Dr. Jayme Yang Work Phone: [facility] 05-21-2023 05:44-0400 Respiratory rate 20 /min Dr. Jayme Yang Work Phone: [facility] 05-21-2023 05:44-0400 SaO2% (BldA) [Mass fraction] 96 % Dr. Jayme Yang Work Phone: [facility] 05-21-2023 05:44-0400 Systolic blood pressure 159 mm[Hg] Dr. Jayme Yang Work Phone: [facility] 04-04-2023 07:48-0400 Body height 170.[address] Jayme Yang Work Phone: 1(794)887-428002 [address] 04-04-2023 07:48-0400 Body mass index (BMI) [Ratio] 31.6 kg/m2 Dr. Jayme Yang Work Phone: 4(575)221-192102 [address] 04-04-2023 07:48-0400 Body temperature 97.6 [degF] Dr. Jayme Yang Work Phone: [facility] 04-04-2023 07:48-0400 Body weight 91.[address] Jayme Yang Work Phone: [facility] 04-04-2023 07:48-0400 Diastolic blood pressure 88 mm[Hg] Dr. Jayme Yang Work Phone: [facility] 04-04-2023 07:48-0400 Heart rate 82 /min Dr. Jayme Yang Work Phone: [facility] 04-04-2023 07:48-0400 Respiratory rate 20 /min Dr. Jayme Yang Work Phone: [facility] 04-04-2023 07:48-0400 SaO2% (BldA) [Mass fraction] 94 % Dr. Jayme Yang Work Phone: [facility] 04-04-2023 07:48-0400 Systolic blood pressure 160 mm[Hg] Dr. Jayme Yang Work Phone: [facility] 03-26-2023 14:37-0400 Heart rate 88 /min Dr. Jayme Yang Work Phone: 7(531)167-549435 [address] [place] [address] 03-26-2023 14:37-0400 Respiratory rate 20 /min Dr. Jayme Yang Work Phone: 2(553)759-337402 [address] 03-26-2023 14:37-0400 SaO2% (BldA) [Mass fraction] 91 % Dr. Jayme Yang Work Phone: 0(108)335-933508 [place] [address] 03-26-2023 13:00-0400 Body temperature 98 [degF] Dr. Jayme Yang Work Phone: 2(934)[phone] [place] [address] 03-26-2023 13:00-0400 Diastolic blood pressure 86 mm[Hg] Dr. Jayme Yang Work Phone: 4(417)[phone] [place] [address] 03-26-2023 13:00-0400 Systolic blood pressure 158 mm[Hg] Dr. Jayme Yang Work Phone: 3(780)439-207908 [place] [address] 03-25-2023 21:00-0400 Inhaled oxygen flow rate 3 L/min Dr. Jayme Yang Work Phone: 1(888)283-084708 [place] [address] 03-25-2023 13:46-0400 Body height 170.[address] Jayme Yang Work Phone: 2(469)968-256708 [place] [address] 03-25-2023 13:46-0400 Body weight 97.[address] Jayme Yang Work Phone: 5(189)918-416308 [place] [address] 03-21-2023 22:30-0400 Body mass index (BMI) [Ratio] 33.5 kg/m2 Dr. Jayme Yang Work Phone: 7(814)172-533908 [place] [address] 02-07-2023 08:00-0400 Body height 170.[address] Jayme Yang Work Phone: 6(597)585-996002 [address] 02-07-2023 08:00-0400 Body mass index (BMI) [Ratio] 36.3 kg/m2 Dr. Jayme Yang Work Phone: [facility] 02-07-2023 08:00-0400 Body temperature 97.2 [degF] Dr. Jayme Yang Work Phone: [facility] 02-07-2023 08:00-0400 Body weight 105.[address] Jayme Yang Work Phone: 2(257)149-622035 [place] [address] 02-07-2023 08:00-0400 Diastolic blood pressure 76 mm[Hg] Dr. Jayme Yang Work Phone: 2(625)620-132602 [address] 02-07-2023 08:00-0400 Heart rate 70 /min Dr. Jayme Yang Work Phone: 6(191)376-582102 [address] 02-07-2023 08:00-0400 Respiratory rate 20 /min Dr. Jayme Yang Work Phone: 9(050)920-640902 [address] 02-07-2023 08:00-0400 SaO2% (BldA) [Mass fraction] 93 % Dr. Jayme Yang Work Phone: 3(609)942-647302 [address] 02-07-2023 08:00-0400 Systolic blood pressure 143 mm[Hg] Dr. Jayme Yang Work Phone: 4(503)744-149635 [place] [address] 10-22-2022 13:23-0500 Body height 170.[address] Jayme Yang Work Phone: 1(597)483-460135 [place] [address] 10-22-2022 13:23-0500 Body mass index (BMI) [Ratio] 34 kg/m2 Dr. Jayme Yang Work Phone: 8(865)092-052235 [place] [address] 10-22-2022 13:23-0500 Body weight 98.[address] Jayme Yang Work Phone: 8(518)696-024902 [address] 10-22-2022 13:23-0500 Diastolic blood pressure 87 mm[Hg] Dr. Jayme Yang Work Phone: 2(178)803-251902 [address] 10-22-2022 13:23-0500 Systolic blood pressure 146 mm[Hg] Dr. Jayme Yang Work Phone: [facility] 10-05-2022 18:18-0500 Body temperature 98.1 [degF] Dr. Jayme Yang Work Phone: [facility] 10-05-2022 18:18-0500 Diastolic blood pressure 80 mm[Hg] Dr. Jayme Yang Work Phone: [facility] 10-05-2022 18:18-0500 Heart rate 88 /min Dr. Jayme Yang Work Phone: [facility] 10-05-2022 18:18-0500 Respiratory rate 18 /min Dr. Jayme Yang Work Phone: [facility] 10-05-2022 18:18-0500 SaO2% (BldA) [Mass fraction] 97 % Dr. Jayme Yang Work Phone: [facility] 10-05-2022 18:18-0500 Systolic blood pressure 144 mm[Hg] Dr. Jayme Yang Work Phone: [facility] 10-05-2022 10:24-0500 Body height 170.[address] Jayme Yang Work Phone: [facility] 10-05-2022 10:24-0500 Body weight 98.[address] Jayme Yang Work Phone: [facility] 10-04-2022 23:35-0500 Inhaled oxygen flow rate 2 L/min Dr. Jayme Yang Work Phone: [facility] 10-04-2022 19:28-0500 Body temperature 98.8 [degF] Dr. Jayme Yang Work Phone: [facility] Work Phone: 10-04-2022 19:28-0500 Diastolic blood pressure 72 mm[Hg] Dr. Jayme Yang Work Phone: [facility] Work Phone: 10-04-2022 19:28-0500 Heart rate 84 /min Dr. Jayme Yang Work Phone: [facility] Work Phone: 10-04-2022 19:28-0500 Inhaled oxygen flow rate 2 L/min Dr. Jayme Yang Work Phone: [facility] Work Phone: 10-04-2022 19:28-0500 Respiratory rate 18 /min Dr. Jayme Yang Work Phone: [facility] Work Phone: 10-04-2022 19:28-0500 SaO2% (BldA) [Mass fraction] 94 % Dr. Jayme Yang Work Phone: [facility] Work Phone: 10-04-2022 19:28-0500 Systolic blood pressure 149 mm[Hg] Dr. Jayme Yang Work Phone: [facility] Work Phone: 10-04-2022 19:19-0500 Body height 170.[address] Jayme Yang Work Phone: [facility] Work Phone: 10-04-2022 19:19-0500 Body mass index (BMI) [Ratio] 33.9 kg/m2 Dr. Jayme Yang Work Phone: [facility] 10-04-2022 19:19-0500 Body weight 98.[address] Jayme Yang Work Phone: [facility] Work Phone: 10-02-2022 19:00-0500 Body temperature 97.6 [degF] Dr. Jayme Yang Work Phone: [facility] 10-02-2022 19:00-0500 Diastolic blood pressure 82 mm[Hg] Dr. Jayme Yang Work Phone: [facility] 10-02-2022 19:00-0500 Heart rate 83 /min Dr. Jayme Yang Work Phone: [facility] 10-02-2022 19:00-0500 Respiratory rate 18 /min Dr. Jayme Yang Work Phone: [facility] 10-02-2022 19:00-0500 SaO2% (BldA) [Mass fraction] 92 % Dr. Jayme Yang Work Phone: [facility] 10-02-2022 19:00-0500 Systolic blood pressure 184 mm[Hg] Dr. Jayme Yang Work Phone: [facility] 10-02-2022 10:25-0500 Body height 170.[address] Jayme Yang Work Phone: [facility] Work Phone: 10-02-2022 10:25-0500 Body mass index (BMI) [Ratio] 35 kg/m2 Dr. Jayme Yang Work Phone: [facility] 10-02-2022 10:25-0500 Body weight 101.[address] Jayme Yang Work Phone: [facility] 09-06-2022 14:55-0500 Body height 170.[address] Jayme Yang Work Phone: [facility] Work Phone: 09-06-2022 14:55-0500 Body mass index (BMI) [Ratio] 33.6 kg/m2 Dr. Jayme Yang Work Phone: [facility] 09-06-2022 14:55-0500 Body weight 97.[address] Jayme Yang Work Phone: [facility] 09-06-2022 14:55-0500 Diastolic blood pressure 91 mm[Hg] Dr. Jayme Yang Work Phone: [facility] 09-06-2022 14:55-0500 Heart rate 65 /min Dr. Jayme Yang Work Phone: [facility] 09-06-2022 14:55-0500 Respiratory rate 18 /min Dr. Jayme Yang Work Phone: [facility] 09-06-2022 14:55-0500 SaO2% (BldA) [Mass fraction] 94 % Dr. Jayme Yang Work Phone: [facility] 09-06-2022 14:55-0500 Systolic blood pressure 171 mm[Hg] Dr. Jayme Yang Work Phone: [facility] 08-13-2022 10:46-0500 Body height 170.[address] Jayme Yang Work Phone: [facility] Work Phone: 08-13-2022 10:46-0500 Body mass index (BMI) [Ratio] 33.5 kg/m2 Dr. Jayme Yang Work Phone: [facility] 08-13-2022 10:46-0500 Body temperature 98.2 [degF] Dr. Jayme Yang Work Phone: [facility] 08-13-2022 10:46-0500 Body weight 97.[address] Jayme Yang Work Phone: [facility] 08-13-2022 10:46-0500 Diastolic blood pressure 86 mm[Hg] Dr. Jayme Yang Work Phone: [facility] 08-13-2022 10:46-0500 Heart rate 72 /min Dr. Jayme Yang Work Phone: [facility] 08-13-2022 10:46-0500 Respiratory rate 18 /min Dr. Jayme Yang Work Phone: [facility] 08-13-2022 10:46-0500 SaO2% (BldA) [Mass fraction] 96 % Dr. Jayme Yang Work Phone: [facility] 08-13-2022 10:46-0500 Systolic blood pressure 182 mm[Hg] Dr. Jayme Yang Work Phone: [facility] 06-21-2022 08:15-0400 Body height 170.[address] Jayme Yang Work Phone: [facility] Work Phone: 06-21-2022 08:15-0400 Body weight 92.[address] Jayme Yang Work Phone: [facility] 06-21-2022 08:15-0400 Heart rate 88 /min Dr. aJyme Yang Work Phone: [facility] 06-21-2022 08:15-0400 SaO2% (BldA) [Mass fraction] 93 % Dr. Jayme Yang Work Phone: [facility] 04-24-2022 13:32-0400 Body mass index (BMI) [Ratio] 30 kg/m2 Dr. Jayme Yang Work Phone: [facility] Work Phone: 04-24-2022 13:32-0400 Body weight 87.[address] Jayme Yang Work Phone: [facility] Work Phone: 04-24-2022 13:32-0400 Diastolic blood pressure 86 mm[Hg] Dr. Jayme Yang Work Phone: [facility] Work Phone: 04-24-2022 13:32-0400 Heart rate 82 /min Dr. Jayme Yang Work Phone: [facility] Work Phone: 04-24-2022 13:32-0400 Respiratory rate 18 /min Dr. Jayme Yang Work Phone: [facility] Work Phone: 04-24-2022 13:32-0400 SaO2% (BldA) [Mass fraction] 95 % Dr. Jayme Yang Work Phone: [facility] Work Phone: 04-24-2022 13:32-0400 Systolic blood pressure 163 mm[Hg] Dr. Jayme Yang Work Phone: [facility] Work Phone: 02-13-2022 11:30-0400 Diastolic blood pressure 90 mm[Hg] Dr. Jayme Yang Work Phone: [facility] Work Phone: 02-13-2022 11:30-0400 Systolic blood pressure 174 mm[Hg] Dr. Jayme Yang Work Phone: [facility] Work Phone: 02-13-2022 11:30-0400 Diastolic blood pressure 90 mm[Hg] Dr. Jayme Yang Work Phone: [facility] Work Phone: 02-13-2022 11:30-0400 Systolic blood pressure 174 mm[Hg] Dr. Jayme Yang Work Phone: [facility] Work Phone: 02-13-2022 10:50-0400 Body height 170.[address] Jayme Yang Work Phone: [facility] Work Phone: 02-13-2022 10:50-0400 Body mass index (BMI) [Ratio] 33 kg/m2 Dr. Jayme Yang Work Phone: [facility] Work Phone: 02-13-2022 10:50-0400 Body temperature 97.4 [degF] Dr. Jayme Yang Work Phone: [facility] Work Phone: 02-13-2022 10:50-0400 Body weight 95.[address] Jayme Yang Work Phone: [facility] Work Phone: 02-13-2022 10:50-0400 Heart rate 80 /min Dr. Jayme Yang Work Phone: [facility] Work Phone: 02-13-2022 10:50-0400 Respiratory rate 16 /min Dr. Jayme Yang Work Phone: [facility] Work Phone: 02-13-2022 10:50-0400 SaO2% (BldA) [Mass fraction] 91 % Dr. Jayme Yang Work Phone: [facility] Work Phone: 02-13-2022 10:50-0400 Body height 170.[address] Jayme Yang Work Phone: [facility] Work Phone: 02-13-2022 10:50-0400 Body mass index (BMI) [Ratio] 33 kg/m2 Dr. Jayme Yang Work Phone: [facility] Work Phone: 02-13-2022 10:50-0400 Body temperature 97.4 [degF] Dr. Jayme Yang Work Phone: [facility] Work Phone: 02-13-2022 10:50-0400 Body weight 95.[address] Jayme Yang Work Phone: [facility] Work Phone: 02-13-2022 10:50-0400 Heart rate 80 /min Dr. Jayme Yang Work Phone: [facility] Work Phone: 02-13-2022 10:50-0400 Respiratory rate 16 /min Dr. Jayme Yang Work Phone: [facility] Work Phone: 02-13-2022 10:50-0400 SaO2% (BldA) [Mass fraction] 91 % Dr. Jayme Yang Work Phone: [facility] Work Phone: 01-26-2022 09:58-0400 Body mass index (BMI) [Ratio] 33.5 kg/m2 Dr. Jayme Yang Work Phone: [facility] Work Phone: 01-26-2022 09:58-0400 Body weight 97.[address] Jayme Yang Work Phone: [facility] Work Phone: 01-26-2022 09:58-0400 Diastolic blood pressure 78 mm[Hg] Dr. Jayme Yang Work Phone: [facility] Work Phone: 01-26-2022 09:58-0400 Heart rate 69 /min Dr. Jayme Yang Work Phone: [facility] Work Phone: 01-26-2022 09:58-0400 Respiratory rate 18 /min Dr. Jayme Yang Work Phone: [facility] Work Phone: 01-26-2022 09:58-0400 Systolic blood pressure 143 mm[Hg] Dr. Jayme Yang Work Phone: [facility] Work Phone: 01-26-2022 09:58-0400 Body mass index (BMI) [Ratio] 33.5 kg/m2 Dr. Jayme Yang Work Phone: [facility] Work Phone: 01-26-2022 09:58-0400 Body weight 97.[address] Jayme Yang Work Phone: [facility] Work Phone: 01-26-2022 09:58-0400 Diastolic blood pressure 78 mm[Hg] Dr. Jayme Yang Work Phone: [facility] Work Phone: 01-26-2022 09:58-0400 Heart rate 69 /min Dr. Jayme Yang Work Phone: [facility] Work Phone: 01-26-2022 09:58-0400 Respiratory rate 18 /min Dr. Jayme Yang Work Phone: [facility] Work Phone: 01-26-2022 09:58-0400 Systolic blood pressure 143 mm[Hg] Dr. Jayme Yang Work Phone: [facility] Work Phone: 12-23-2021 09:38-0400 Heart rate 75 /min Dr. Jayme Yang Work Phone: [facility] Work Phone: 12-23-2021 09:28-0400 Body temperature 97.1 [degF] Dr. Jayme Yang Work Phone: [facility] Work Phone: 12-23-2021 09:28-0400 Diastolic blood pressure 93 mm[Hg] Dr. Jayme Yang Work Phone: [facility] Work Phone: 12-23-2021 09:28-0400 Respiratory rate 18 /min Dr. Jayme Yang Work Phone: [facility] Work Phone: 12-23-2021 09:28-0400 SaO2% (BldA) [Mass fraction] 98 % Dr. Jayme Yang Work Phone: [facility] Work Phone: 12-23-2021 09:28-0400 Systolic blood pressure 163 mm[Hg] Dr. Jayme Yang Work Phone: [facility] Work Phone: 12-23-2021 03:23-0400 Inhaled oxygen flow rate 2 L/min Dr. Jayme Yang Work Phone: [facility] Work Phone: 12-21-2021 15:35-0400 Body height 170.[address] Jayme Yang Work Phone: [facility] Work Phone: 12-21-2021 15:35-0400 Body mass index (BMI) [Ratio] 33 kg/m2 Dr. Jayme Yang Work Phone: [facility] Work Phone: 12-21-2021 15:35-0400 Body weight 95.[address] Jayme Yang Work Phone: [facility] Work Phone: 12-18-2021 09:33-0400 Body weight 101.[address] Jayme Yang Work Phone: [facility] Work Phone: 12-18-2021 08:53-0400 Body mass index (BMI) [Ratio] 37 kg/m2 Dr. Jayme Yang Work Phone: [facility] Work Phone: 12-13-2021 10:04-0400 Body mass index (BMI) [Ratio] 37 kg/m2 Dr. Jayme Yang Work Phone: [facility] Work Phone: 12-13-2021 10:04-0400 Body weight 101.[address] Jayme Yang Work Phone: [facility] Work Phone: 12-13-2021 10:04-0400 Diastolic blood pressure 80 mm[Hg] Dr. Jayme Yang Work Phone: [facility] Work Phone: 12-13-2021 10:04-0400 Heart rate 80 /min Dr. Jayme Yang Work Phone: [facility] Work Phone: 12-13-2021 10:04-0400 Respiratory rate 16 /min Dr. Jayme Yang Work Phone: [facility] Work Phone: 12-13-2021 10:04-0400 Systolic blood pressure 159 mm[Hg] Dr. Jayme Yang Work Phone: [facility] Work Phone: 12-13-2021 10:04-0400 Body mass index (BMI) [Ratio] 37 kg/m2 Dr. Jayme Yang Work Phone: [facility] Work Phone: 12-13-2021 10:04-0400 Body weight 101.[address] Jayme Yang Work Phone: [facility] Work Phone: 12-13-2021 10:04-0400 Diastolic blood pressure 80 mm[Hg] Dr. Jayme Yang Work Phone: [facility] Work Phone: 12-13-2021 10:04-0400 Heart rate 80 /min Dr. Jayme Yang Work Phone: [facility] Work Phone: 12-13-2021 10:04-0400 Respiratory rate 16 /min Dr. Jayme Yang Work Phone: [facility] Work Phone: 12-13-2021 10:04-0400 Systolic blood pressure 159 mm[Hg] Dr. Jayme Yang Work Phone: [facility] Work Phone: 11-06-2021 07:30-0500 Body mass index (BMI) [Ratio] 37.8 kg/m2 Dr. Jayme Yang Work Phone: [facility] Work Phone: 11-06-2021 07:30-0500 Body weight 103.[address] Jayme Yang Work Phone: [facility] Work Phone: 11-06-2021 07:30-0500 Diastolic blood pressure 92 mm[Hg] Dr. Jayme Yang Work Phone: [facility] Work Phone: 11-06-2021 07:30-0500 Heart rate 64 /min Dr. Jayme Yang Work Phone: [facility] Work Phone: 11-06-2021 07:30-0500 Respiratory rate 18 /min Dr. Jayme Yang Work Phone: [facility] Work Phone: 11-06-2021 07:30-0500 Systolic blood pressure 162 mm[Hg] Dr. Jayme Yang Work Phone: [facility] Work Phone: 10-13-2021 09:10-0500 Body mass index (BMI) [Ratio] 37.5 kg/m2 Dr. Jayme Yang Work Phone: [facility] Work Phone: 10-13-2021 09:10-0500 Body temperature 97.3 [degF] Dr. Jayme Yang Work Phone: [facility] Work Phone: 10-13-2021 09:10-0500 Body weight 102.[address] Jayme Yang Work Phone: [facility] Work Phone: 10-13-2021 09:10-0500 Diastolic blood pressure 82 mm[Hg] Dr. Jayme Yang Work Phone: [facility] Work Phone: 10-13-2021 09:10-0500 Heart rate 72 /min Dr. Jayme Yang Work Phone: [facility] Work Phone: 10-13-2021 09:10-0500 Respiratory rate 16 /min Dr. Jayme Yang Work Phone: [facility] Work Phone: 10-13-2021 09:10-0500 SaO2% (BldA) [Mass fraction] 94 % Dr. Jayme Yang Work Phone: [facility] Work Phone: 10-13-2021 09:10-0500 Systolic blood pressure 155 mm[Hg] Dr. Jayme Yang Work Phone: [facility] Work Phone: 09-26-2021 08:17-0500 Body mass index (BMI) [Ratio] 36.8 kg/m2 Dr. Jayme Yang Work Phone: [facility] Work Phone: 09-26-2021 08:17-0500 Body weight 100.[address] Jayme Yang Work Phone: [facility] Work Phone: 08-25-2021 08:36-0500 Body temperature 96.7 [degF] Dr. Jayme Yang Work Phone: [facility] Work Phone: 08-25-2021 08:36-0500 Body weight 102.[address] Jayme Yang Work Phone: [facility] Work Phone: 08-25-2021 08:36-0500 Diastolic blood pressure 82 mm[Hg] Dr. Jayme Yang Work Phone: [facility] Work Phone: 08-25-2021 08:36-0500 Heart rate 84 /min Dr. Jayme Yang Work Phone: [facility] Work Phone: 08-25-2021 08:36-0500 Respiratory rate 18 /min Dr. Jayme Yang Work Phone: [facility] Work Phone: 08-25-2021 08:36-0500 SaO2% (BldA) [Mass fraction] 94 % Dr. Jayme Yang Work Phone: [facility] Work Phone: 08-25-2021 08:36-0500 Systolic blood pressure 130 mm[Hg] Dr. Jayme Yang Work Phone: [facility] Work Phone: 03-22-2017 09:32-0400 BMI (Body Mass Index) 34.12 kg/m2 Kaylene Chong [facility] Work Phone: 03-22-2017 09:32-0400 BP Diastolic 88 mm[Hg] Kaylene Castillo [facility] Work Phone: 03-22-2017 09:32-0400 BP Systolic 146 mm[Hg] Kaylene Chong [facility] Work Phone: 03-22-2017 09:32-0400 Height 167.64 cm Kaylene Chong [facility] Work Phone: 03-22-2017 09:32-0400 Pulse (Heart Rate) 72 /min Kaylene Chong [facility] Work Phone: 03-22-2017 09:32-0400 Respiratory Rate 20 /min Kaylene Chong [facility] Work Phone: 03-22-2017 09:32-0400 Weight 95.89 kg Kaylene Chong [facility] Work Phone: 12-13-2016 14:06-0400 Heart rate 71 /min Harumi Mary [facility] Work Phone: 12-13-2016 13:33-0400 BMI (Body Mass Index) 34.21 kg/m2 Yasmin [facility] Work Phone: 12-13-2016 13:33-0400 BP Diastolic 78 mm[Hg] Yasmin Roland RN [facility] Work Phone: 12-13-2016 13:33-0400 BP Systolic 138 mm[Hg] Yasmin Roland RN [facility] Work Phone: 12-13-2016 13:33-0400 Height 167.64 cm Yasmin Roland RN [facility] Work Phone: 12-13-2016 13:33-0400 Pulse (Heart Rate) 80 /min Yasmin Roland RN [facility] Work Phone: 12-13-2016 13:33-0400 Respiratory Rate 16 /min Yasmin Roland RN [facility] Work Phone: 12-13-2016 13:33-0400 Weight 96.16 kg Yasmin Roland RN [facility] Work Phone: Encounters Encounter Date Encounter Type Care Provider Facility Start: 03-04-2025 End: 03-04-[address] Jayme Yang MD Work Phone: [facility] Work Phone: Start: 03-04-2025 End: 03-04-2025 Dr. Marycruz Yen MD -Laboratory [facility] Work Phone: Start: 03-04-2025 End: 03-04-2025 ambulatory Marycurz Yen Facility:[facility] Start: 02-15-2025 End: 02-15-2025 Dr. Jayme Yang MD Work Phone: -Emergency Department Work Phone: Start: 02-15-2025 End: 02-15-2025 Emergency department patient visit Dr. Jayme Yang MD Work Phone: [facility] Work Phone: Start: 01-06-2025 End: 01-06-[address] Jayme Yang MD Work Phone: [facility] Work Phone: Start: 01-06-2025 End: 01-06-[address] Juany Bellamy DO -Laboratory, [place] Work Phone: Start: 01-06-2025 End: 01-06-2025 Dr. Juany Bellamy DO -Laboratory [facility] Work Phone: Start: 01-06-2025 End: 01-06-2025 ambulatory Juany Bellamy Facility:[facility] Start: 12-25-2024 End: 12-25-[address] Jayme Yang MD Work Phone: [facility] Work Phone: Start: 12-25-2024 End: 12-25-[address] Surinder Larson MD -Laboratory, [place] Work Phone: Start: 12-25-2024 End: 12-25-2024 Dr. Surinder Larson MD -Laboratory, [place] Work Phone: Start: 12-25-2024 End: 12-25-2024 ambulatory Surinder Larson Facility:[facility] Start: 12-10-2024 ambulatory Teja Jefferson [employer] Facility :[facility] Start: 12-10-2024 Non-patient / Non-visit Dr. Isha Cordeor MD -[facility] Start: 12-10-2024 Dr. Clifford Cordero MD -[facility] Start: 12-10-2024 End: 12-10-[address] Jayme Yang MD Work Phone: [facility] Work Phone: Start: 12-10-2024 End: 12-10-2024 Patient encounter procedure Teja Jefferson [employer]-C -[facility] Work Phone: Start: 12-10-2024 End: 12-10-2024 Teja Jefferson [employer]-C -[facility] Work Phone: Start: 12-10-2024 End: 12-10-2024 ambulatory Teja Jefferson [employer] Facility:[facility] Start: 11-27-2024 End: 11-27-2024 Patient encounter procedure Teja Jefferson [employer]-C -[facility] Work Phone: Start: 11-27-2024 End: 11-27-2024 Teja Jefferson [employer]-C -[facility] Work Phone: Start: 11-27-2024 End: 11-27-2024 ambulatory Teja Jefferson NP Facility:[facility] Start: 11-17-2024 End: 11-17-2024 Patient encounter procedure Emerald Campos NP-C -[facility] Work Phone: Start: 11-17-2024 End: 11-17-2024 Emerald Campos [employer]-C -[facility] Work Phone: Start: 11-17-2024 End: 11-17-2024 ambulatory Jayme Yang Facility:[facility] Start: 10-26-2024 End: 10-26-[address] [facility] Work [facility] Start: 10-26-2024 End: 10-26-2024 Dr. Jayme Yang MD -Laboratory, [facility] Work Phone: Start: 10-26-2024 End: 10-26-2024 ambulatory Jayme Yang Facility:[facility] Start: 10-06-2024 End: 10-06-[address] [facility] [facility] Work Phone: Start: 10-06-2024 End: 10-06-2024 Dr. [facility] Work Phone: Start: 10-06-2024 End: 10-06-2024 ambulatory Keo Montemayor Facility:[facility] Start: 10-05-2024 End: 10-05-[address] Keo Montemayor DO -Laboratory, [place] Work Phone: Start: 10-05-2024 End: 10-05-2024 Dr. Keo Montemayor DO -Laboratory, [facility] Work Phone: Start: 10-05-2024 End: 10-05-2024 ambulatory Keo Montemayor Facility:[facility] Start: 09-12-2024 End: 09-12-2024 Dr. Marycruz Yen MD -Laboratory Work Phone: Start: 09-12-2024 End: 09-12-2024 ambulatory Marycruz Yen Facility:[facility] Start: 08-06-2024 End: 08-06-2024 ambulatory Jayme Yang Facility:[facility] Start: 07-17-2024 End: 07-17-2024 ambulatory Juany Bellamy Facility:[facility] Start: 06-26-2024 End: 06-26-2024 ambulatory Jayme Yang Facility:[facility] Start: 06-25-2024 End: 06-25-2024 ambulatory Usha Lowry Facility:[facility] Start: 06-23-2024 End: 06-23-2024 ambulatory Jayme Yang Facility:[facility] Start: 05-27-2024 End: 05-27-2024 ambulatory Jayme Yang Facility:[facility] Start: 05-22-2024 End: 05-22-2024 ambulatory Jayme Yang Facility:[facility] Start: 05-06-2024 End: 05-06-2024 ambulatory Jayme Yang Facility:[facility] Start: 05-01-2024 End: 05-01-2024 ambulatory Jayme Yang Facility:[facility] Start: 04-24-2024 End: 04-24-2024 ambulatory Jayme Yang Facility:[facility] Start: 04-06-2024 End: 04-06-2024 ambulatory Keo Montemayor Facility:[facility] Start: 04-03-2024 End: 04-03-2024 ambulatory Keo [place] Facility:[facility] Start: 03-20-2024 End: 03-20-2024 ambulatory Mayrcruz Yen Facility:[facility] Start: 03-13-2024 End: 03-13-2024 ambulatory Jayme Yang Facility:[facility] Start: 03-10-2024 End: 03-10-2024 ambulatory Jayme Yang Facility:[facility] Start: 01-10-2024 End: 01-10-[address] Jayme Yang Work Phone: [facility] Work Phone: Start: 01-10-2024 End: 01-10-2024 Dr. Jayme Yang Work Phone: [facility] Work Phone: Start: 12-11-2023 End: 12-11-[address] Jayme Yang Work Phone: [facility] Work Phone: Start: 12-11-2023 End: 12-11-2023 Dr. Jayme Yang Work Phone: [facility] Work Phone: Start: 11-21-2023 End: 11-21-2023 Dr. Jayme Yang Work Phone: [facility]-Pulmonary Medicine [facility] Work Phone: Start: 11-19-2023 End: 11-19-2023 Dr. Jayme Yang Work Phone: [facility] Work Phone: Start: 11-13-2023 Dr. Jayme Rollins en Work Phone: [facility] Work Phone: Start: 11-13-2023 Dr. Jayme bowie Work Phone: [facility] Start: 11-12-2023 End: 11-13-2023 Evaluation and management of inpatient Dr. Jayme Yang Work Phone: [facility] Work Phone: Start: 11-12-2023 End: 11-13-2023 Dr. Jayme Yang Work Phone: [facility]-Progressive Care Unit Work Phone: Start: 11-12-2023 Dr. Jayme Rollins en Work Phone: [facility] Work Phone: Start: 11-12-2023 Dr. Jayme bowie Work Phone: [facility] Start: 11-12-2023 Dr. Jayme Rollins en Work Phone: [facility] Start: 11-11-[address] Jayme Yang Work Phone: [facility] Work Phone: Start: 11-11-2023 End: 11-11-2023 Dr. Jayme Yang Work Phone: [facility]-Progressive Care Unit Work Phone: Start: 11-08-2023 Dr. Jayme Rollins en Work Phone: [facility]-Radiation Oncology Start: 10-18-2023 Dr. Jayme bowie Work Phone: [facility] Work Phone: Start: 10-16-2023 End: 10-16-[address] Jayme Yang Work Phone: [facility] Work Phone: Start: 10-16-2023 End: 10-16-2023 Dr. Jayme Yang Work Phone: [facility]-Laboratory Work Phone: Start: 10-16-2023 End: 10-16-2023 Dr. Jayme Yang Work Phone: [facility] Work Phone: Start: 10-09-2023 End: 10-09-2023 Dr. Jayme Yang Work Phone: [facility] Work Phone: Start: 10-02-2023 End: 10-02-2023 Dr. Jayme Yang Work Phone: [facility] Work Phone: Start: 09-25-2023 End: 09-25-2023 Dr. Jayme Yang Work Phone: [facility] Work Phone: Start: 09-24-2023 Dr. Jamye bowie Work Phone: [facility]-Radiation Oncology Start: 09-23-2023 Dr. Jayme bowie Work Phone: [facility] Work Phone: Start: 09-22-2023 End: 09-24-2023 Evaluation and management of inpatient Dr. Jayme Yang Work Phone: [facility] Work Phone: Start: 09-22-2023 End: 09-24-2023 Dr. Jayme Yang Work Phone: [facility]-Medical Surgical 3 Work Phone: Start: 09-22-2023 Dr. Jayme bowie Work Phone: [facility] Work Phone: Start: 09-21-2023 Dr. Jayme Rollins en Work Phone: [facility] Work Phone: Start: 09-20-2023 Dr. Jayme Rollins en Work Phone: [facility] Work Phone: Start: 09-20-[address] Jayme Yang Work Phone: [facility] Work Phone: Start: 09-20-[address] Jayme Yang Work Phone: [facility]-Radiation Oncology Start: 09-20-2023 Dr. Jayme bowie Work Phone: [facility]-Medical Surgical 3 Work Phone: Start: 09-18-2023 End: 09-18-[address] Jayme Yang Work Phone: [facility] Work Phone: Start: 09-18-2023 End: 09-18-2023 Dr. Jayme Yang Work Phone: [facility] Work Phone: Start: 09-16-2023 End: 09-16-[address] Jayme Yang Work Phone: [facility] Work Phone: Start: 09-16-2023 End: 09-16-[address] Jayme Yang Work Phone: [facility]-Laboratory Work Phone: Start: 09-16-2023 End: 09-16-2023 Dr. Jayme Yang Work Phone: [facility]-Laboratory Work Phone: Start: 09-11-2023 End: 09-11-[address] Jayme Yang Work Phone: [facility] Work Phone: Start: 09-11-2023 End: 09-11-2023 Dr. Jayme Yang Work Phone: [facility] Work Phone: Start: 09-05-2023 Non-patient / Non-visit Dr. Adry Yang Work Phone: [facility] Work Phone: Start: 09-05-2023 Dr. Jayme Rollins en Work Phone: [facility] Work Phone: Start: 09-04-2023 End: 09-05-2023 Evaluation and management of inpatient [facility] Start: 09-04-2023 End: 09-05-2023 Dr. [facility] Start: 08-29-2023 Non-patient / Non-visit Dr. Adry Yang Work Phone: [facility] Start: 08-29-2023 Dr. Jayme Rollins en Work Phone: [facility] Start: 08-29-[address] Jay[facility] Start: 08-29-2023 End: 08-29-[address] Jayme Yang Work Phone: [facility] Work Phone: Start: 08-29-2023 End: 08-29-[address] Jayme Yang Work Phone: [facility] Work Phone: Start: 08-29-2023 End: 08-29-2023 Dr. Jayme Ynag Work Phone: [facility] Work Phone: Start: 08-13-2023 End: 08-13-[address] [facility] Work Phone: Start: 08-13-2023 End: 08-13-2023 Dr. Jayme Yang Work Phone: [facility] Work Phone: Start: 08-07-2023 End: 08-07-2023 [facility] Jay[facility] Start: 08-07-2023 End: 08-07-[address] Jayme Yang Work Phone: [facility] Work Phone: Start: 08-07-2023 End: 08-07-2023 Dr. Jay[facility] Start: 07-02-2023 End: 07-02-[address] Jayme Yang Work Phone: [facility] Work Phone: Start: 07-02-2023 End: 07-02-2023 Dr. Jayme Yang Work Phone: [facility] Work Phone: Start: 06-04-2023 End: 06-04-[address] Jayme Yang Work Phone: [facility] Work Phone: Start: 06-04-2023 End: 06-04-[address] Jay[facility] Work Phone: Start: 06-04-2023 End: 06-04-2023 Dr. Jayme Yang [facility] Work Phone: Start: 05-30-2023 End: 05-30-[address] Jayme Yang Work Phone: [facility] Work Phone: Start: 05-30-2023 End: 05-30-[address] Jayme Yang [facility] Work Phone: Start: 05-30-2023 End: 05-30-2023 Dr. Jayme Yang Work Phone: [facility] Work Phone: Start: 05-24-2023 End: 05-24-[address] Jayme Yang Work Phone: [facility] Work Phone: Start: 05-24-2023 End: 05-24-2023 Dr. Jayme Yang Work Phone: [facility] Work Phone: Start: 05-21-2023 End: 05-21-[address] Jayme Yang Work Phone: [facility]-Pulmonary Medicine [facility] Work Phone: Start: 05-13-2023 End: 05-13-[address] Jayme Yang Work Phone: [facility] Work Phone: Start: 05-13-2023 End: 05-13-[address] Jayme Yang Work Phone: [facility]-Laboratory, Specimen Work Phone: Start: 04-16-2023 End: 04-16-[address] Jayme Yang Work Phone: [facility] Work Phone: Start: 04-16-2023 End: 04-16-[address] Jayme Yang Work Phone: [facility]-Laboratory Work Phone: Start: 04-04-2023 End: 04-04-[address] Jayme Yang Work Phone: [facility]-Pulmonary Medicine [facility] Work Phone: Start: 04-01-2023 End: 04-01-[address] Jayme Yang Work Phone: [facility] Work Phone: Start: 04-01-2023 End: 04-01-[address] Jay[facility] Work [facility]: Start: 03-26-2023 Non-patient / Non-visit Dr. Adry Yang Work Phone: [facility] Start: 03-25-2023 Non-patient / Non-visit Dr. Adry Yang Work Phone: [facility] Start: 03-24-2023 Non-patient / Non-visit Dr. Adry Yang Work Phone: [facility] Start: 03-23-2023 Non-patient / Non-visit Dr. Adry Yang Work Phone: [facility] Start: 03-22-2023 Non-patient / Non-visit Dr. Adry Yang Work Phone: [facility] Start: 03-21-2023 End: 03-26-2023 Evaluation and management of inpatient Dr. Jayme Yang Work Phone: [facility]-Medical Surgical 3 Start: 03-21-2023 Non-patient / Non-visit Dr. Adry Yang Work Phone: [facility] Start: 02-28-2023 End: 02-28-[address] Jayme Yang Work Phone: [facility] Work Phone: Start: 02-28-2023 End: 02-28-[address] Jay[facility] Start: 02-07-2023 End: 02-07-[address] Jayme Yang [facility] Phone[facility] Start: 01-03-2023 End: 01-03-[address] Jayme Yang Work Phone: [facility] Start: 12-20-2022 End: 12-20-[address] Jayme Yang Work Phone: [facility] Work Phone: Start: 12-20-2022 End: 12-20-[address] Jayme Yang Work Phone: [facility] Start: 12-20-2022 End: 12-20-2022 Dr. Jayme Yang Work Phone: [facility] Start: 11-09-2022 End: 11-09-[address] Jayme Yang Work Phone: [facility] Work Phone: Start: 11-09-2022 End: 11-09-[address] Jayme Yang Work Phone: [facility] Start: 11-09-2022 End: 11-09-2022 Dr. Jayme Yang Work Phone: [facility] Start: 11-08-2022 End: 11-08-[address] Jayme Yang Work Phone: [facility] Work Phone: Start: 11-08-2022 End: 11-08-[address] Jayme Yang Work Phone: [facility] Start: 11-08-2022 End: 11-08-2022 Dr. Jayme Yang Work Phone: [facility] Start: 10-22-2022 End: 10-22-2022 Dr. Jayme Yang Work Phone: [facility] Start: 10-05-2022 Non-patient / Non-visit Dr. Adry Yang Work Phone: [facility] Start: 10-05-2022 Dr. Jayme Rollins en Work Phone: [facility] Start: 10-04-2022 Non-patient / Non-visit Dr. Adry Yang Work Phone: [facility] Start: 10-04-2022 End: 10-05-2022 Evaluation and management of inpatient Dr. Jayme [facility] Start: 10-04-2022 End: 10-05-[address] Jayme Yang Work Phone: [facility] Work Phone: Start: 10-04-2022 End: 10-05-2022 Dr. Jayme Yang Work Phone: [facility] Surgical 3 Start: 10-02-2022 End: 10-02-2022 Emergency department patient visit Dr. Jayme Yang Work Phone: [facility]-Emergency Department Start: 10-02-2022 End: 10-02-2022 Dr. Jayme Yang Work Phone: [facility]-Emergency Department Start: 10-02-2022 End: 10-02-[address] Jayme Yang Work Phone: [facility] Work Phone: Start: 10-02-2022 End: 10-02-[address] Jayme Yang Work Phone: [facility] Start: 10-02-2022 End: 10-02-2022 Dr. Jayme Yang Work Phone: [facility] Start: 09-06-2022 End: 09-06-[address] Jayme Yang Work Phone: [facility] Work Phone: Start: 09-06-2022 End: 09-06-[address] Jayme Yang Work Phone: [facility] Start: 09-06-2022 End: 09-06-2022 Dr. Jayme Yang Work Phone: [facility] Start: 09-06-2022 End: 09-06-[address] Jayme Yang Work Phone: [facility] Heart [facility] Start: 09-06-2022 End: 09-06-2022 Dr. Jayme Yang Work Phone: [facility] Start: 08-13-2022 End: 08-13-[address] Jayme [facility] Start: 08-13-2022 End: 08-13-2022 Dr. Jayme Yang Work Phone: [facility] Start: 08-08-2022 End: 08-08-[address] Jayme Yang Work Phone: [facility] Work Phone: Start: 08-08-2022 End: 08-08-[address] Jay[facility] Start: 08-08-2022 End: 08-08-2022 Dr. Jayme Yang Work Phone[facility] Start: 07-17-2022 End: 07-17-[address] Jayme Yang Work Phone: [facility] Work Phone: Start: 07-17-2022 End: 07-17-[address] Jayme Yang Work Phone: [facility]-Laboratory Start: 06-22-2022 Non-patient / Non-visit Dr. Adry Yang Work Phone: [facility] Start: 06-21-2022 End: 06-21-[address] Jayme Yang Work Phone: [facility] Work Phone: Start: 06-21-2022 End: 06-21-[address] Jayme Yang Work Phone: [facility]-Pulmonary Services/Neurology Start: 04-24-2022 End: 04-24-[address] Jayme Yang Work Phone: [facility] Start: 04-12-2022 End: 04-12-[address] Jayme Yang Work Phone: [facility] Start: 03-28-2022 End: 03-28-[address] Jayme Yang Work Phone: [facility] Start: 02-13-2022 End: 02-13-[address] Jayme Yang Work Phone: [facility]-Pulmonary Medicine [facility] Start: 01-26-2022 End: 01-26-[address] Jayme Yang Work Phone: [facility] Start: 01-11-2022 End: 01-11-[address] Jayme Yang Work Phone: [facility]-Laboratory Start: 01-09-2022 End: 01-09-[address] Jayme Yang Work Phone: [facility]-Pre-Admission Testing Start: 12-23-2021 Non-patient / Non-visit Dr. Adry Yang Work Phone: [facility] Start: 12-22-2021 Non-patient / Non-visit Dr. Adry Yang Work Phone: [facility] Start: 12-22-2021 Non-patient / Non-visit Dr. Adry Yang Work Phone: [facility] Start: 12-21-2021 Non-patient / Non-visit Dr. Adry Yang Work Phone: [facility] Start: 12-21-2021 End: 12-23-2021 Evaluation and management of inpatient Dr. Jayme Yang Work Phone: [facility]-Progressive Care Unit Start: 12-13-2021 End: 12-13-[address] Jayme Yang Work Phone: [facility] Heart [facility] Start: 11-22-2021 Non-patient / Non-visit Dr. Adry Yang Work Phone: [facility] Start: 11-22-2021 End: 11-22-[address] Jayme Yang Work Phone: [facility]-Cardiovascula r Services Start: 11-07-2021 Non-patient / Non-visit Dr. Adry Yang Work Phone: [facility] Start: 11-06-2021 End: 11-06-[address] Jayme Yang Work Phone: [facility] Start: 10-17-2021 End: 10-17-[address] Jayme Yang Work Phone: [facility] Start: 10-16-2021 End: 10-16-[address] Jayme Yang Work Phone: [facility]-Laboratory, Specimen Start: 10-13-2021 End: 10-13-[address] [facility] Start: 10-05-2021 End: 10-05-[address] Jay[facility] Start: 10-05-2021 Non-patient / Non-visit Dr. Adry Yang Work Phone: [facility] Start: 10-05-2021 End: 10-05-[address] Jayme Yang [facility] Start: 10-04-2021 Non-patient / Non-visit Dr. Adry Yang Work Phone: [facility] Start: 10-04-2021 End: 10-04-[address] Jayme Yang Work Phone: [facility]-Pulmonary Services/Neurology Start: 09-26-2021 End: 09-26-[address] Jayme Yang Work Phone: [facility]-Laboratory Start: 08-25-[address] Jayme [facility] Date Procedure Procedure Detail Performing [...] above: Performed By: #### T &S #### [place] [id number] Start: 03-22-2017 End: 03-22-2017 Dietary management education, guidance, and counseling Kaylene Chong Start: 03-22-2017 End: 03-22-2017 Follow Up Appt 6 months Teja Jefferson [employer] Work Phone: Start: 03-22-2017 End: 03-22-2017 PFM Teja Jefferson [employer] Work Phone: Start: 12-13-2016 End: 12-13-2016 Dietary [...] Date Care Activity Detail Author Start: 02-15-2025 [facility] Start: 02-15-2025 [facility] Start: 11-13-2023 Patient discharge [facility] Start: 11-12-2023 Oxygen therapy [facility] Start: 11-12-2023 Admission procedure [facility] Start: 11-12-2023 Admission procedure [facility] Start: 11-12-2023 Referral to preservative filler machine operator [facility] Start: 11-12-2023 Continuous positive airway pressure ventilation treatment [facility] Start: 11-12-2023 Inhalation therapy procedure [facility] Start: 11-11-2023 Following clinical pathway protocol [facility] Start: 11-11-2023 Notification of physician [facility] Start: 11-11-2023 [facility] Start: 11-11-2023 Admission procedure [facility] Start: 11-11-2023 Troponin I measurement [facility] Start: 11-11-2023 Hospital admission, emergency, from emergency room, medical nature [facility] Start: 11-11-2023 [facility] Start: 09-24-2023 Patient discharge [facility] Start: 09-22-2023 Admission procedure [facility] Start: 09-20-2023 Oxygen therapy [facility] Start: 09-20-2023 Continuous positive airway pressure ventilation treatment [facility] Start: 09-20-2023 Assessment of risk of venous thromboembolism [facility] Start: 09-20-2023 Care regimes management [facility] Start: 09-20-2023 Catheterization of vein [facility] Start: 09-20-2023 Insertion of catheter into peripheral vein [facility] Start: 09-20-2023 Notification of physician [facility] Start: 09-20-2023 Providing care according to standard [facility] Start: 09-20-2023 Provision of activity privileges [facility] Start: 09-20-2023 Referral to occupational therapist [facility] Start: 09-20-2023 Referral to service [facility] Start: 09-20-2023 [facility] Start: 09-20-2023 Following clinical pathway protocol [facility] Start: 09-20-2023 Respiratory pathogens DNA and RNA panel - Respiratory specimen by [employer] with probe detection [facility] Start: 09-20-2023 Verification routine [facility] Start: 09-20-2023 Admission procedure [facility] Start: 09-20-2023 Hospital admission, emergency, from emergency room, medical nature [facility] Start: 09-20-2023 Respiratory microbial culture [facility] Start: 09-20-2023 Inhalation therapy procedure [facility] Start: 09-07-2023 Blood chemistry [facility] Start: 09-06-2023 Blood chemistry [facility] Start: 09-05-2023 Patient discharge [facility] Start: 09-05-2023 Blood chemistry [facility] Start: 09-05-2023 [facility] Start: 09-04-2023 Verification routine [facility] Start: 09-04-2023 Care regimes management [facility] Start: 09-04-2023 Notification of physician [facility] Start: 09-04-2023 End: 09-04-2023 [facility] Start: 09-04-2023 Following clinical pathway protocol [facility] Start: 09-04-2023 Admission procedure [facility] Start: 09-04-2023 Inhalation therapy procedure [facility] Start: 09-04-2023 [facility] Start: 08-07-2023 Anes integ extremities ant trunk & perineum nos [facility] Start: 08-07-2023 Plmt interstitial dev radiat tx prostate 1/mult [facility] Start: 08-07-2023 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 plmt biodegradable matrl 1/clinic charge nurse njx [facility] Start: 08-07-2023 Patient discharge [facility] Start: 08-07-2023 Ambulation without limitation [facility] Start: 08-07-2023 Medical regimen orders management [facility] Start: 08-07-2023 Medication education [facility] Start: 08-07-2023 [facility] Start: 04-04-2023 Patient referral [facility] Work Phone: Start: 03-26-2023 Patient discharge [facility] Start: 03-23-2023 Care planning and problem solving actions [facility] Start: 03-23-2023 Physiotherapy of chest [facility] Start: 03-22-2023 Care regimes management [facility] Start: 03-22-2023 Notification of physician [facility] Start: 03-22-2023 [facility] Start: 03-22-2023 Following clinical pathway protocol [facility] Start: 03-21-2023 Following clinical pathway protocol [facility] Start: 03-21-2023 Assessment of risk of venous thromboembolism [facility] Start: 03-21-2023 Elevation of head of bed [facility] Start: 03-21-2023 Inhalation therapy procedure [facility] Start: 03-21-2023 Insertion of catheter into peripheral vein [facility] Start: 03-21-2023 Methicillin resistant Staphylococcus aureus screening test [facility] Start: 03-21-2023 Oxygen therapy [facility] Start: 03-21-2023 Patient education [facility] Start: 03-21-2023 Providing care according to standard [facility] Start: 03-21-2023 Provision of activity privileges [facility] Start: 03-21-2023 Referral to service [facility] Start: 03-21-2023 [facility] Start: 03-21-2023 [facility] Start: 03-21-2023 Admission procedure [facility] Start: 03-21-2023 Respiratory microbial culture Respiratory Culture [facility] Start: 10-05-2022 Patient discharge [facility] Start: 10-05-2022 Blood chemistry [facility] Work Phone: Start: 10-05-2022 [facility] Work Phone: Start: 10-04-2022 Assessment of risk of venous thromboembolism [facility] Start: 10-04-2022 Care regimes management [facility] Start: 10-04-2022 Catheterization of vein [facility] Start: 10-04-2022 Incentive spirometry [facility] Start: 10-04-2022 Insertion of catheter into peripheral vein [facility] Start: 10-04-2022 Oxygen therapy [facility] Work Phone: Start: 10-04-2022 Providing care according to standard [facility] Start: 10-04-2022 Referral to occupational therapist [facility] Start: 10-04-2022 Referral to service [facility] Start: 10-04-2022 [facility] Start: 10-04-2022 Oxygen therapy [facility] Start: 10-04-2022 Following clinical pathway protocol [facility] Start: 10-04-2022 Continuous positive airway pressure ventilation treatment [facility] Work Phone: Start: 10-04-2022 Verification routine [facility] Work Phone: Start: 10-04-2022 Admission procedure [facility] Start: 10-04-2022 Patient referral to dietitian [facility] Start: 10-02-2022 Arthrocentesis aspir&/inj major jt/bursa w/o us [facility] Start: 10-02-2022 Following clinical pathway protocol [facility] Start: 10-02-2022 [facility] Start: 12-23-2021 Patient discharge [facility] Work Phone: Start: 12-22-2021 End: 12-22-2021 Notification of physician [facility] Work Phone: Start: 12-22-2021 End: 12-22-2021 Patient education [facility] Work Phone: Start: 12-22-2021 End: 12-22-2021 Pulse taking [facility] Work Phone: Start: 12-22-2021 End: 12-22-2021 Taking patient vital signs [facility] Work Phone: Start: 12-22-2021 End: 12-22-2021 Wound care [facility] Work Phone: Start: 12-22-2021 End: 12-22-2021 [facility] Work Phone: Start: 12-21-2021 Referral to preservative filler machine operator [facility] Work Phone: Start: 12-21-2021 Assessment of risk of venous thromboembolism [facility] Work Phone: Start: 12-21-2021 Insertion of catheter into peripheral vein [facility] Work Phone: Start: 12-21-2021 Measuring intake and output [facility] Work Phone: Start: 12-21-2021 Oxygen therapy [facility] Work Phone: Start: 12-21-2021 Providing care according to standard [facility] Work Phone: Start: 12-21-2021 Provision of activity privileges [facility] Work Phone: Start: 12-21-2021 Referral to occupational therapist [facility] Work Phone: Start: 12-21-2021 Referral to service [facility] Work Phone: Start: 12-21-2021 [facility] Work Phone: Start: 12-21-2021 Following clinical pathway protocol [facility] Work Phone: Start: 12-21-2021 Admission procedure [facility] Work Phone: Start: 10-13-2021 Chemotherapy admn iv infusion tq ea hr CHEMO IV INFUSION ADDL HR [facility] Work Phone: Start: 10-13-2021 Chemotx admn iv nfs tq up 1 hr 09/30 sbst/drug CHEMO IV INFUSION 1 HR [facility] Work Phone: Start: 11-04-2017 End: 11-04-2017 Appointment [facility] Work Phone: Start: 03-22-2017 End: 03-22-2017 Appointment Appointment [facility] Work Phone: Start: 03-22-2017 End: 03-22-2017 Appointment Appointment [facility] Work Phone: Start: 03-22-2017 End: 03-22-2017 Follow Up Appt 6 months Follow Up Appt 6 months [facility] Work Phone: Start: 03-22-2017 End: 03-22-2017 PFM PFM [facility] Work Phone: Start: 12-13-2016 End: 02-07-2017 *BMP *BMP [facility] Work Phone: Start: 12-13-2016 End: 02-07-2017 CBC W Auto Differential panel - Blood *CBC without Diff [facility] Work Phone: Start: 12-13-2016 End: 12-13-2016 Electrocardiogram, complete EKG (In office) [facility] Work Phone: Start: 12-13-2016 End: 12-13-2016 Follow Up Appt 3 months Follow Up Appt 3 months [facility] Work Phone: Start: 12-13-2016 End: 12-13-2016 MMM MMM [facility] Work Phone: Start: 12-13-2016 End: 12-13-2016 Remote 30 day ecg rev/report 30 Day Holter Monitor [facility] Work Phone: Start: 12-13-2016 End: 12-13-2016 Tilt table evaluation Tilt Table Test [facility] Work Phone: Anaerobic Culture Anaerobic Culture [facility] Work Phone: Anaerobic microbial culture Anaerobic Cul ture [facility] Work Phone: Anion gap measurement [facility] Work Phone: Anion gap measurement [facility] Anion gap measurement [facility] Anion gap measurement [facility] Bacteria identified in Body fluid by Culture [facility] Work Phone: Bacteria identified in Unspecified specimen by Anaerobe culture [facility] Work Phone: Bacterial culture Body Fluid Culture [facility] Work Phone: Body Fluid Culture Body Fluid Culture [facility] Work Phone: BUN/Creatinine ratio [facility] Work Phone: BUN/Creatinine ratio [facility] BUN/Creatinine ratio [facility] BUN/Creatinine ratio [facility] Calcium [Mass/volume ] in Serum or Plasma [facility] Work Phone: Calcium [Mass/volume ] in Serum or Plasma [facility] Calcium [Mass/volume ] in Serum or Plasma [facility] Calcium [Mass/volume ] in Serum or Plasma [facility] Carbon dioxide, tota l [Moles/volume] in Serum or Plasma [facility] Work Phone: Carbon dioxide, tota l [Moles/volume] in Serum or Plasma [facility] Carbon dioxide, tota l [Moles/volume] in Serum or Plasma [facility] Carbon dioxide, tota l [Moles/volume] in Serum or Plasma [facility] Chloride [Moles/volu me] in Serum or Plasma [facility] Work Phone: Chloride [Moles/volu me] in Serum or Plasma [facility] Chloride [Moles/volu me] in Serum or Plasma [facility] Chloride [Moles/volu me] in Serum or Plasma [facility] Creatinine [Moles/vo lume] in Serum or Plasma [facility] Work Phone: Creatinine [Moles/vo lume] in Serum or Plasma [facility] Creatinine [Moles/vo lume] in Serum or Plasma [facility] Creatinine [Moles/vo lume] in Serum or Plasma [facility] Glucose [Mass/volume ] in Serum or Plasma [facility] Work Phone: Glucose [Mass/volume ] in Serum or Plasma [facility] Glucose [Mass/volume ] in Serum or Plasma [facility] Glucose [Mass/volume ] in Serum or Plasma [facility] Hematocrit [Volume Fraction] of Blood [facility] Work Phone: Hematocrit [Volume Fraction] of Blood [facility] Hematocrit [Volume Fraction] of Blood [facility] Hematocrit [Volume Fraction] of Blood [facility] Hemoglobin [Mass/vol ume] in Blood [facility] Work Phone: Hemoglobin [Mass/vol ume] in Blood [facility] Hemoglobin [Mass/vol ume] in Blood [facility] Hemoglobin [Mass/vol ume] in Blood [facility] Hemoglobin A1c/Hemoglobin.total in Blood [facility] Investigation of transfusion reaction Gram Stain [facility] Work Phone: Leukocytes [#/volume ] in Blood [facility] Work Phone: Leukocytes [#/volume ] in Blood [facility] Leukocytes [#/volume ] in Blood [facility] Leukocytes [#/volume ] in Blood [facility] Magnesium [Mass/volu me] in Serum or Plasma [facility] Work Phone: Magnesium [Mass/volu me] in Serum or Plasma [facility] Mean corpuscular hem oglobin concentration determination [facility] Work Phone: Mean corpuscular hem oglobin concentration determination [facility] Mean corpuscular hem oglobin concentration determination [facility] Mean corpuscular hem oglobin concentration determination [facility] Mean corpuscular hem oglobin determination [facility] Work Phone: Mean corpuscular hem oglobin determination [facility] Mean corpuscular hem oglobin determination [facility] Mean corpuscular hem oglobin determination [facility] Measurement of renal function [facility] Work Phone: Measurement of renal function [facility] Measurement of renal function [facility] Measurement of renal function [facility] Neutrophil count [facility] Work Phone: Neutrophil count [facility] Neutrophil count [facility] Neutrophil count [facility] Neutrophil percent differential count [facility] Work Phone: Neutrophil percent differential count [facility] Neutrophil percent differential count [facility] Neutrophil percent differential count [facility] Patient Education [facility] Work Phone: Patient referral [facility] Work Phone: Platelets [#/volume] in Blood [facility] Work Phone: Platelets [#/volume] in Blood [facility] Platelets [#/volume] in Blood [facility] Platelets [#/volume] in Blood [facility] Potassium [Moles/vol ume] in Serum or Plasma [facility] Work Phone: Potassium [Moles/vol ume] in Serum or Plasma [facility] Potassium [Moles/vol ume] in Serum or Plasma [facility] Potassium [Moles/vol ume] in Serum or Plasma [facility] Prostate specific an tigen measurement [facility] Red blood cell count [facility] Work Phone: Red blood cell count [facility] Red blood cell count [facility] Red blood cell count [facility] Red cell distributio n width determination [facility] Work Phone: Red cell distributio n width determination [facility] Red cell distributio n width determination [facility] Red cell distributio n width determination [facility] Respiratory microbia l culture Respiratory Culture [facility] Sodium [Moles/volume ] in Serum or Plasma [facility] Work Phone: Sodium [Moles/volume ] in Serum or Plasma [facility] Sodium [Moles/volume ] in Serum or Plasma [facility] Sodium [Moles/volume ] in Serum or Plasma [facility] Urea nitrogen [Mass/ volume] in Serum or Plasma [facility] Work Phone: Urea nitrogen [Mass/ volume] in Serum or Plasma [facility] Urea nitrogen [Mass/ volume] in Serum or Plasma [facility] Urea nitrogen [Mass/ volume] in Serum or Plasma [facility] Immunizations Immunization Date Immunization Notes Care Provider [facility] 08-20-2023 influenza, injectabl e, quadrivalent, preservative free Dr. Jayme Yang Work Phone: [facility] 09-17-2022 tetanus toxoid, redu rhiannon diphtheria toxoid, and acellular pertussis vaccine, adsorbed Dr. Jayme Yang Work Phone: [facility] 09-03-[address] Jayme Yang Work Phone: [facility] 08-07-2022 Covid Moderna Bivale nt Booster Dr. Jayme Yang Work Phone: [facility] 07-27-2022 influenza, injectabl e, quadrivalent, preservative free Dr. Jayme Yang Work Phone: [facility] 07-27-2022 influenza, seasonal, injectable Dr. Jayme Yang Work Phone: [facility] 06-21-[address] Jayme Yang Work Phone: [facility] 12-29-2021 Covmckenzie (Pfizer) Dr. Jayme Vasques sen Work Phone: [facility] 09-20-2021 Covid (Moderna) Dr. Jayme jolley Work Phone: [facility] 08-09-2021 influenza, injectabl e, quadrivalent, preservative free Dr. Jayme Yang Work Phone: [facility] 01-13-2021 Covid (Moderna) Dr. Jayme jolley Work Phone: [facility] 12-16-2020 Covid (Moderna) Dr. Jayme jolley Work Phone: [facility] 07-30-[address] Jayme Yang Work Phone: [facility] 07-29-2018 influenza, injectabl e, quadrivalent, preservative free Dr. Jayme Yang Work Phone: [facility] 07-19-[address] Jayme Yang Work Phone: [facility] 07-30-2017 Seasonal, quadrivale nt, recombinant, injectable influenza vaccine, preservative free Dr. Jayme Yang Work Phone: [facility] 06-30-[address] Jayme Yang Work Phone: [facility] 09-10-2016 pneumococcal conjuga te vaccine, [address] Jayme Yang Work Phone: [facility] 09-08-2015 pneumococcal polysaccharide vaccine, [address] Jayme Yang Work Phone: [facility] 08-12-2013 influenza, injectabl e, quadrivalent, preservative free Dr. Jayme Yang Work Phone: [facility] 09-14-2009 novel influenza-H1N1 -09, preservative-free, injectable Dr. Jayme Yang Work Phone: [facility] Payers Date Payer Category Payer Unknown [id number] 2024 Unknown [id number] 2023 Private Health Insurance 101 [id number] 2023 Self-pay [id number] 2016 Unknown [id number] 2005 Medicare [id number] Unknown [id number] Unknown [id number] Unknown [id number] 2.16.8 [id number] Unknown [id number] 2.16.8 40.1.165129.3.579.2.462 Unknown [id number] 2.16.8 40.1.517638.3.579.2.462 Unknown [id number] 2.16.8 40.1.945813.3.579.2.462 Unknown [id number] 2.16.8 40.1.041484.3.579.2.462 Unknown [id number] 2.16.8 40.1.674204.3.579.2.462 Unknown [id number] 2.16.8 40.1.590341.3.579.2.462 Unknown [id number] 2.16.8 40.1.694950.3.579.2.462 Unknown [id number] 2.16.8 40.1.432694.3.579.2.462 Unknown [id number] 2.16.8 40.1.124244.3.579.2.462 Unknown [id number] 2.16.8 40.1.018055.3.579.2.462 Unknown [id number] 2.16.8 40.1.219722.3.579.2.462 Unknown [id number] 2.16.8 40.1.083103.3.579.2.462 Unknown [id number] 2.16.8 40.1.560210.3.579.2.462 Unknown [id number] 2.16.8 40.1.727147.3.579.2.462 Unknown [id number] 2.16.8 40.1.821290.3.579.2.462 Unknown [id number] 2.16.8 40.1.737999.3.579.2.462 Unknown [id number] 2.16.8 40.1.017369.3.579.2.462 Unknown [id number] 2.16.8 40.1.221694.3.579.2.462 Unknown [id number] 2.16.8 40.1.783995.3.579.2.462 Unknown [id number] 2.16.8 40.1.954005.3.579.2.462 Unknown [id number] 2.16.8 40.1.242297.3.579.2.462 Unknown [id number] 2.16.8 40.1.727897.3.579.2.462 Unknown [id number] 2.16.8 40.1.048470.3.579.2.462 Unknown [id number] 2.16.8 40.1.668360.3.579.2.462 Unknown [id number] 2.16.8 40.1.960024.3.579.2.462 Unknown [id number] 2.16.8 40.1.583246.3.579.2.462 Social History Date Type Detail Facility Start: 12-21-2021 End: 09-20-2023 Tobacco smoking status GAIS Unknown if ever smoked [facility] Start: 06-23-2020 None [facility] Start: 06-23-2020 Alone [facility] Start: 03-24-2020 Cigarettes [facility] Start: 1945 Sex Assigned At Male [facility] Start: 05-27-2024 End: 02-15-2025 Tobacco smoking status NHIS Ex-smoker (finding) [facility] Start: 12-21-2024 End: 01-11-2025 Sex Male (finding) [facility] Medical Equipment Procedure Code Equipment Code [...] MARKERS, FIDUCIA L GOLD FDA Start: 08-07-2023 [id number] FDA Start: 08-07-2023 STENT,URETERAL 6 FR PIG [...] Facility 11-13-2023 Functional status Ambulates [facility] Work Phone: 09-24-2023 Functional status Up ad dong [facility] Work Phone: 09-05-2023 Functional status Ambulates;Stand with Ur inal [facility] Work Phone: 09-04-2023 Functional status Assist with Urinal [facility] Work Phone: 03-26-2023 Functional status Chair mode [facility] Work Phone: 10-05-2022 Functional status Chair [facility] Work Phone: 12-23-2021 Functional status Ambulates;Chair [facility] Work Phone: Mental Status Date Assessment Result Facility 11-13-2023 Cognitive function Voice/Name [facility] Work Phone: 11-11-2023 Cognitive function Voice/Name [facility] Work Phone: 09-24-2023 Cognitive function Voice/Name [facility] Work Phone: 09-05-2023 Cognitive function Anxious;Uncoo perative;Guarded; Suspicious [facility] Work Phone: 09-04-2023 Cognitive function Anxious;Uncoo perative;Guarded; Suspicious;Resistive to Care [facility] Work Phone: 08-07-2023 Cognitive function Voice/Name [facility] Work Phone: 03-25-2023 Cognitive function Voice/Name [facility] Work Phone: 10-05-2022 Cognitive function Appropriate;Cooperativ e [facility] Work Phone: 10-04-2022 Cognitive function Level Of Cons ciousness Awake;Alert;Appropriate;Follow s Commands [facility] Work Phone: 12-23-2021 Cognitive function Voice/Name [facility] Work Phone: 10-13-2021 Cognitive function Awake;Alert;A ppropriate;Follow s Commands [facility] Work Phone: 08-25-2021 Cognitive function Level Of Cons ciousness Awake;Alert;Appropriate;Follow s Commands [facility] Work Phone: Clinical Notes 10-02-2022 to 02-15-2025 Note Date & Type Note Facility 02-15-2025 Radiology Diagnostic study note [facility] 02-15-2025 Discharge summary Note Date/Time February 15, 2025 7:08p m [facility] Medical Records Department [address] [place] [address] Emergency Department Summary 02/15/25 MR#: [id number] Acct: [id number] Name: MEGAN GIMENEZ Rep #:[id number] : [...] with intermediate recurrence risk (stage T2b-c or Douglas 7 or PSA 10-20) Heart failure Prostate cancer Sinus drainage HTN (hypertension) Pneumonia Hypokalemia Gout flare Inability to walk Arthralgia of right knee Arthralgia of foot, left Anticoagulant long-term use Effusion, right knee Effusion, left knee Rib pain White coat syndrome without diagnosis of hypertension Fatigue Nonrheumatic aortic (valve) stenosis Atherosclerotic heart diseas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 Closed head [...] nontender. Moving all 4 extremities. Bilateral 5/5 equipment planner strength. Dorsi plantarflexion intact. Calves are nontender [...] % (Auto) 65.0 Lymph % (Auto) 22.7 Parke % (Auto) 10.9 H Eos % (Auto) [...] of an acute cardiopulmonary abnormality. Reading Location: [facility] Chest x-ray, 2 views, AP and lateral. [...] of 91. First-degree AV block with a KY interval of 210. Discharge Plan Triage Chief [...] chest x-ray look good today. Print Language: Kyrgyz Disposition Disposition: Home, Self Care What to do if you have Problems For any increased pain, shortness of breath, bleeding, nausea or vomiting, chestpain, or any unexpected problems, contact your Primary Care Provider. Call [facility] ([phone]) or report to the closest Emergency Room. Call 911 if necessary. 02/15/251907 <Electronically signed by Jonathan Lopez MD> Cosigner Signature (if applicable): CC: Dr. Jayme Yang MD ~ Signed [facility] Work Phone: 1(264) 261-611202-18-2025 Evaluation note* Diagnosis Onset Date Resolution Status [...] fibrillation chron ic November 27, 2024 8:21am [facility] Work Phone: 1(801) 915-732101-07-2025 Evaluation note* Diagnosis Onset Date Resolution Status [...] fibrillation chron ic November 27, 2024 8:21am [facility] Work Phone: 1(281) 441-930202-14-2024 Consult note Author Joelle Barros [facility] November 13, 2023 11:30am Note Date/Time November 13, 2023 11:30am [facility] Medical Records Department [address] [place] [address] Counseling Note - Pharmacy 11/13/23 1129 MR#: [id number] Acct: [id number] Name: MEGAN GIMENEZ Rep #:[id number] : 1945 78 From: Joelle Barros PCP: Dr. Jayme Yang MD Status:ADM I N Y Location: [place] [address] Pharmacy [facility] has performed discharge medication reconciliation [...] of their dischargemedications. Patient counseled by pharmacy helper, Davion. Medications at Discharge Home Medications glimepiride [...] by Joelle Barros> Date _ [facility]ros [facility] Signature (if applicable): Date CC: ~ Signed [facility] Work Phone: 1(608) 919-852402-14-2024 Discharge summary Author Boris Bojorquez [facility] November 13, 2023 8:39am Note Date/Time November 13, 2023 8:31am [facility] Medical Records Department [address] [place] [address] Instructions for Home/Discharge Instructions 11/13/23 0831 MR#: [id number] Acct: [id number] Name: MEGAN GIMENEZ Rep #:[id number] : [...] Maldonado; Domenico Ordaz; Nabil Marie; Teja Jefferson RANGE MOUNTER; Dyan Chavez RANGE MOUNTER;Faye Martinez; Laureano Lucero; Js Lee Discharge Orders/Prescriptions [...] by Boris Bojorquez MD>Boris Bojorquez MD CC: RANGE MOUNTERDouglas Jefferson; TERESE Chavez; Maxine Miguel MD; Dr. [...] Marie MD; Dyan Oviedo; ADRY Polanco ~ [facility] Work Phone: 1([phone]) 870-336202-14-2024 Progress note Author Suzie [facility] November 13, 2023 7:46am Note Date/Time November 13, 2023 7:40am [facility] Medical Records Department [address] [place] [address] Progress Note - Cardiology 11/13/23 0735 MR#: [id number] Acct: [id number] Name: MEGAN GIMENEZ Rep #:[id number] : 1945 78 From: Suzie Ashton MD PCP: Dr. Jayme Yang MD Status:ADM I N Location: [place] [address] Subjective Subjective Patient was sleeping comfortably with [...] andEliquis long-term. (5) Atherosclerotic heart diseas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: QUALIFIERS: Torres Martinez vs. transplanted heart: [place] heart QualifiedCode(s): I25.10 - Atherosclerotic heart diseas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 PLAN: The [...] tolerating. The patient should follow-up in the [facility] office with one of the advanced practitioners in approximately 2 weeks. We will reevaluate his response to the anti-ischemic medical regimen and his blood pressure control at that time. Charges/Coding Visit Charges Inpatient E&M: 47047 Subs Hosp L2 11/13/23 0746 <Electronically signed by Suzie Ashton MD> Cosigner Signature (if applicable): CC: ~ Signed [facility] Work Phone: 1(382) 196-458502-13-2024 Progress note Author Js Lee [facility] November 12, 2023 3:36pm Note Date/Time November 12, 2023 12:18pm [facility] Medical Records Department [address] [place] [address] Progress Note - Hospitalist 11/12/23 1217 MR#: [id number] Acct: [id number] Name: MEGAN GIMENEZ Rep #:[id number] : 1945 78 From: Js valera DO PCP: Dr. Jayme Yang MD Status:ADM I NO Location: [place] [address] Reason for Visit Reason for Visit: Diagnoses Hypokalemia (11/11/23) Essential (primary) hypertension (11/11/23) Non-ST elevation (NSTEMI) myocardial infarction (11/11/23) Unspecified atrial fibrillation (11/11/23) group home (current) use of anticoagulants (11/11/23) Other specified [...] % (Auto) 52.3, Lymph % (Auto) 32.6, Parke % (Auto) 11.6 H, Eos % (Auto) [...] is a 78-year-old male who presented to [facility] ED on 11/11/2023 with chest pain. [...] 35 minutes. Charges/Coding Visit Charges Inpatient E&M: 89329 Subs Hosp L2 11/12/231531 <Electronically signed by [...] Cosigner Signature (if applicable): cc: ~* Signed [facility] Work Phone: 1(960) 136-866702-13-2024 Consult note Author Suzie Ashton [facility] November 12, 2023 8:14am Note Date/Time November 12, 2023 7:54am [facility] Medical Records Department [address] [place] [address] Consultation - Cardiology 11/12/23 0754 MR#: [id number] Acct: [id number] Name: MEGAN GIMENEZ Rep #:[id number] : 1945 78 From: Suzie Ashton MD PCP: Dr. Jayme Yang MD Status:ADM I NO Location: [place] [address] Assessment & Plan Assessment/Plan (1) NSTEMI, initial [...] out an old inferior and old anterior [place]. Thepatient has a history of paroxysmal atrial [...] given situation would be fraught with complications. [facility] Medical History Abnormal stress test Acute bronchitis with bronchospasm Acute respiratory insufficiency Anticoagulant long-term use Anxiety Aortic stenosis Arthralgia of foot, left Arthralgia of right knee Arthritis Asthma Asymptomatic hypertensive urgency Atherosclerotic heart diseas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 Atrial fibrillation [...] 20% Risk Charges/Coding Visit Charges Inpatient E&M: 44524 Init Hosp L3 Objective Data Vital Signs: [...] % (Auto) 52.3, Lymph % (Auto) 32.6, Parke % (Auto) 11.6 H, Eos % (Auto) [...] % (Auto) 52.3, Lymph % (Auto) 32.6, Parke % (Auto) 11.6 H, Eos % (Auto) [...] Cosigner Signature (if applicable): CC: TERESE Jefferson; RANGE MOUNTER-C Dyan Chavez; Maxine Miguel MD; Dr. Arnaud [...] Nabil Marie MD; Dyan Oviedo; ADRY Sevilla~ [facility] Work Phone: 1([phone]) 393-664602-13-2024 History and physical note Author Laureano [facility] November 12, 2023 6:45am Note Date/Time November 11, 2023 10:32pm [facility] Medical Records Department [address] [place] [address] H&P Exam - Hospitalist 11/11/234 MR#: [id number] Acct: [id number] Name: MEGAN GIMENEZ Rep #:[id number] : 1945 78 From: Laureano Hampton DO PCP: Dr. Jayme Yang MD Status:ADM I NO Location: [place] [id number]- [id number] HPI - General General Date of [...] on December 22, 2021 who presents to [facility] ER complaining of chest pain. Mr. [...] expected to be greater than 48 hours. [facility] Medical History (Updated 11/12/23 @ 03:[address] Laureano Lucero, DO) Abnormal stress test Acute bronchitis with bronchospasm Acute respiratory insufficiency Anticoagulant long-term use Anxiety Aortic stenosis Arthralgia of foot, left Arthralgia of right knee Arthritis Asthma Asymptomatic hypertensive urgency Atherosclerotic heart diseas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 Atrial fibrillation with RVR Back pain BiPAP (biphasic positive airway pressure) dependence Bronchitis Cancer of prostate with intermediate recurrence risk (stage T2b-c or Douglas 7 or PSA 10-20) Cardiology follow-up encounter [...] % (Auto) 52.3, Lymph % (Auto) 32.6, Parke % (Auto) 11.6 H, Eos % (Auto) [...] mouth swelling. Finally, we will consult the preservative filler machine operator on-call to see this patient on-rounds in the AM for further recommendations regarding [facility] this admission with help appreciated in advance. [...] 55 minutes. Charges/Coding Visit Charges Inpatient E&M: 25947 Init Hosp L2 11/12/23 0645 <Electronically signed by Laureano Lucero DO> Cosigner Signature (if applicable): CC: Dr. Laureano Lucero DO; Dr. Jayme Yang MD~ Signed [facility] Work Phone: 1(550) 148-512302-13-2024 Discharge summary Author Ana Maria Barnhart [facility] November 11, 2023 10:11pm Note Date/Time November 11, 2023 8:15pm [facility] Medical Records Department [address] [place] [address] Emergency Department Summary 11/11/23 MR#: [id number] Acct: [id number] Name: MEGAN GIMENEZ Rep #:[id number] : [...] diabetes high blood pressure and high cholesterol. [facility] Medical History (Updated 11/11/23 @ 22:[address] 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 Lino/[facility]. Patient's CBC shows minimal nonspecific anemia [...] % (Auto) 52.3 Lymph % (Auto) 32.6 Parke % (Auto) 11.6 H Eos % (Auto) [...] the rest of the EKG looks normal. [place] interval is slightly long showing some slight first-degree AV block. QRS duration and QTc are not showing any significant abnormality. Discharge Plan Dx/Rx/DC Orders Clinical Impression: Diabetes, History of coronary artery disease, Chest pain, Dyspnea, Nausea & vomiting Disposition Disposition: Acute Care Hospital [facility] What to do if you have Problems For any increased pain, shortness of breath, bleeding, nausea or vomiting, chestpain, or any unexpected problems, contact your Primary Care Provider. Call [facility] ([phone]) or report to the closest Emergency Room. Call 911 if necessary. 11/11/232210 <Electronically signed by Ana Maria Barnhart MD> Cosigner Signature (if applicable): CC: Dr. Jayme Yang MD ~ Signed [facility] Work Phone: 1(752) 112-776402-12-2024 Discharge summary Author Ana Maria Barnhart [facility] November 11, 2023 10:11pm Note Date/Time November 11, 2023 8:15pm [facility] Medical Records Department [address] [place] [address] Emergency Department Summary 11/11/23 MR#: [id number] Acct: [id number] Name: MEGAN GIMENEZ Rep #:[id number] : [...] diabetes high blood pressure and high cholesterol. [facility] Medical History (Updated 11/11/23 @ 22:[address] Ana Maria Barnhart MD) Abnormal stress test Acute bronchitis with bronchospasm Acute respiratory insufficiency Anticoagulant long-term use Anxiety Aortic stenosis Arthralgia of foot, left Arthralgia of right knee Arthritis Asthma Asymptomatic hypertensive urgency Atherosclerotic heart diseas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 Atrial fibrillation with RVR Back pain BiPAP (biphasic positive airway pressure) dependence Bronchitis Cancer of prostate with intermediate recurrence risk (stage T2b-c or Douglas 7 or PSA 10-20) Cardiology follow-up encounter [...] around 70% with the mid RCA occluded, 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 Lino/[facility]. Patient's CBC shows minimal nonspecific anemia [...] % (Auto) 52.3 Lymph % (Auto) 32.6 Parke % (Auto) 11.6 H Eos % (Auto) [...] the rest of the EKG looks normal. KY interval is slightly long showing some slight first-degree AV block. QRS duration and QTc are not showing any significant abnormality. Discharge Plan Dx/Rx/DC Orders Clinical Impression: Diabetes, History of coronary artery disease, Chest pain, Dyspnea, Nausea & vomiting Disposition Disposition: Acute Care [facility] What to do if you have Problems For any increased pain, shortness of breath, bleeding, nausea or vomiting, chestpain, or any unexpected problems, contact your Primary Care Provider. Call [facility] ([phone]) or report to the closest Emergency Room. Call 911 if necessary. 11/11/232210 <Electronically signed by Ana Maria Barnhart MD> Cosigner Signature (if applicable): CC: Dr. Jayme Yang MD ~ Signed [facility] Work Phone: 1(641) 911-240612-26-2023 Discharge summary Author Boris Bojorquez [facility] September 24, 2023 8:39am Note Date/Time September 24, 2023 8:36am [facility] Medical Records Department [address] [place] [address] Instructions for Home/Discharge Instructions 09/24/23 0835 MR#: [id number] Acct: [id number] Name: MEGAN GIMENEZ Rep #:[id number] : [...] Admission Admit Date/Time: 09/22/23 14:53 Attending Provider: Boirs Bojorquez Primary Care Provider: Jayme Yang Consulting [...] DO; Dr. Jayme Yang MD ~ Signed [facility] Work Phone: 1(714) 637-780112-25-2023 Progress note Author Boris Bojorquez [facility] September 23, 2023 8:35am Note Date/Time September 23, 2023 8:35am [facility] Medical Records Department [address] [place] [address] Progress Note - Hospitalist 09/23/23 0833 MR#: [id number] Acct: [id number] Name: MEGAN GIMENEZ Rep #:[id number] : 1945 78 From: Boris matos MD PCP: Dr. Jayme Yang MD Status:ADM I N Location: [place] [address] Subjective Subjective Maintaining his oxygen 5 L, [...] DVT: Eliquis Charges/Coding Visit Charges Inpatient E&M: 93312 Subs Hosp L2 09/23/23 2054 <Electronically signed by Boris Bojorquez MD> Cosigner Signature (if applicable): CC: ~ Signed [facility] Work Phone: 1(398) 651-215512-24-2023 Progress note Author Boris Bojorquez [facility] September 22, 2023 8:44am Note Date/Time September 22, 2023 8:44am [facility] Medical Records Department [address] [place] [address] Progress Note - Hospitalist 09/22/23 0839 MR#: [id number] Acct: [id number] Name: MEGAN GIMENEZ Rep #:[id number] : 1945 78 From: Boris matos MD PCP: Dr. Jayme Yang MD Status:ADM I NO Location: [place] [address] Subjective Subjective Need increased oxygen overnight, repeat [...] Neut % (Auto) 58.2, Lymph % (Auto) 25.0,Parke % (Auto) 12.9 H, Eos % (Auto) [...] DVT: Eliquis Charges/Coding Visit Charges Inpatient E&M: 98795 Subs Hosp L2 09/22/23 0844 <Electronically signed by Boris Bojorquez MD> Cosigner Signature (if applicable): CC: ~ Signed [facility] Work Phone: 1(761) 410-591612-23-2023 Progress note Author Boris Bojorquez [facility] September 21, 2023 9:34am Note Date/Time September 21, 2023 9:31am [facility] Medical Records Department [address] [place], [place] [address] [place] [address] Progress Note - Hospitalist 09/21/23926 MR#: [id number] Acct: [id number] Name: MEGAN GIMENEZ Rep #:[id number] : 1945 78 From: Boris matos MD PCP: Dr. Jayme Yang MD Status:ADM I NO Location: [place] FQ366-9 Subjective Subjective Doing well, breathing a bit [...] Neut % (Auto) 58.3, Lymph % (Auto) 25.6,Parke % (Auto) 13.3 H, Eos % (Auto) [...] DVT: Eliquis Charges/Coding Visit Charges Inpatient E&M: 07830 Subs Hosp L2 09/21/23 0934 <Electronically signed by Boris Bojorquez MD> Cosigner Signature (if applicable): CC: ~ Signed [facility] Work Phone: 1(813) 793-666312-22-2023 History and physical note Author Drake Mason [facility] September 20, 2023 5:36pm Note Date/Time September 20, 2023 5:36pm [facility] Medical Records Department [address] [place] [address] H&P Exam - Hospitalist 09/20/23 172 MR#: [id number] Acct: [id number] Name: MEGAN GIMENEZ Rep #:[id number] : 1945 78 From: Drake Mason DO PCP: Dr. Jayme Yang MD Status:ADM I NO Location: [place] EA707-5 HPI - General General Date of Admission: 09/20/23 Date of Service: 09/20/23 Chief Complaint: Cough, generalized weakness HPI Narrative MEGAN GIMENEZ, is a 78 M who presents to the emergency room at [facility], he states he has been very [...] patient's weakness, he will be admitted to [place] [address] for community-acquired pneumonia and generalized weakness, he will be seen by PT and OT, he will be placed on Levaquin for the pneumonia. [facility] Medical History (Updated 09/20/23 @ 16:08 by Khalida Jones) Abnormal stress test Acute bronchitis with bronchospasm Acute respiratory insufficiency Ambulates with cane Anxiety Aortic stenosis Arthritis Asthma Asymptomatic hypertensive urgency Atherosclerotic heart diseas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 Atrial fibrillation with RVR Back pain BiPAP (biphasic positive airway pressure) dependence Bronchitis CAD in [place] artery Cancer Cardiology follow-up encounter Chronic anticoagulation [...] 55 minutes Charges/Coding Visit Charges Inpatient E&M: 08968 Init Hosp L2 09/20/23 3694 <Electronically signed by Drake Mason DO> Cosigner Signature (if applicable): CC: Dr. Drake Mason DO; Dr. Jayme Yang MD~ Signed [facility] Work Phone: 1(312) 703-525512-22-2023 Discharge summary Author Jonathan Lopez [facility] September 20, 2023 3:28pm Note Date/Time September 20, 2023 1:23pm [facility] Medical Records Department [address] [place] [address] Emergency Department Summary 09/20/23 MR#: [id number] Acct: [id number] Name: MEGAN GMIENEZ Rep #:[id number] : 1945 78 From: Jonathan Lopez MD PCP: Dr. Jayme Yang MD Status:ADM I NO Location: [facility] ZP299-5 HPI HPI - URI History of Present [...] Asymptomatic hypertensive urgency Atherosclerotic heart diseas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 Atrial fibrillation with RVR Back pain Bronchitis CAD in [place] artery Cancer Cardiology follow-up encounter Chronic anticoagulation [...] QHS diabetes 01/22/18 [History Last Taken 03/21/23] rlfppnmp-hy-ghdke 300 mcg-K 60 mcg-lycop 600 mcg-lutein 300 [...] your Primary Care Provider. Call [facility] ([phone]) or report to the closest Emergency Room. Call 911 if necessary. 09/20/23 1528 <Electronically signed by Jonathan Lopez MD> Cosigner Signature (if applicable): CC: Dr. Jayme Yang MD ~ Signed [facility] Work Phone: 1([phone]) 845-780412-22-2023 Discharge summary Author Jonathan Lopez [facility] September 20, 2023 3:28pm Note Date/Time September 20, 2023 1:23pm [facility] Medical Records Department [address] [place] [address] Emergency Department Summary 09/20/23 MR#: [id number] Acct: [id number] Name: MEGAN GIMENEZ Rep #:[id number] : 1945 78 From: Jonathan Lopez MD PCP: Dr. Jayme Yang MD Status:ADM I NO Location: [place] PT441-5 HPI HPI - URI History of Present [...] Asymptomatic hypertensive urgency Atherosclerotic heart diseas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 Atrial fibrillation with RVR Back pain Bronchitis CAD in [place] artery Cancer Cardiology follow-up encounter Chronic anticoagulation [...] QHS diabetes 01/22/18 [History Last Taken 03/21/23] jlqgniux-lq-jrhkq 300 mcg-K 60 mcg-lycop 600 mcg-lutein 300 [...] your Primary Care Provider. Call [facility] ([phone]) or report to the closest Emergency Room. Call 911 if necessary. 09/20/23 1528 <Electronically signed by Jonathan Lopez MD> Cosigner Signature (if applicable): CC: Dr. Jayme Yang MD ~ Signed [facility] Work Phone: 1(816) 760-350612-07-2023 Discharge summary Author Laureano Lima [facility] September 05, 2023 9:48am Note Date/Time September 05, 2023 9 :43am [facility] Medical Records Department [address] [place] [address] Discharge Summary 09/05/23 0943 MR#: [id number] Acct: [id number] Name: JEWELMEGAN CAPRI Rep #:[id number] : 1945 78 From: Laureano Lima MD PCP: Dr. Jayme Yang MD Status:ADM I N [facility] [place] Providers Date of Admission: 09/04/23 Date of [...] tablet 2 mg PO QHS diabetes 01/22/18 qcsspjss-tz-gzzvp 300 mcg-K 60 mcg-lycop 600 mcg-lutein 300 [...] Std Deviation 49.4 H, RDW Coeff of Aezem 14.8 H, Plt Count 192, MPV10.9, Immature Gran % (Auto) 0.700, Neut % (Auto) 77.9 H, Lymph % (Auto) 16.7 L,Parke % (Auto) 4.6, Eos % (Auto) 0.0, [...] Self Care Charges/Coding Visit Charges Inpatient E&M: 53698 Disch Hosp >30min 09/05/23 0948 <Electronically signed by Laureano Lima MD> Cosigner Signature (if applicable): CC: Dr. Laureano Lima MD; Dr. Jayme Yang MD~ Signed [facility] Work Phone: 1(798) 637-896412-07-2023 Progress note Author Laureano Lima [facility] September 05, 2023 9:43am Note Date/Time September 05, 2023 9 :43am [facility] Medical Records Department [address] [facility] [place] [address] Progress Note - Hospitalist 09/05/23 0942 MR#: [id number] Acct: [id number] Name: MEGAN GIMENEZ Rep #:[id number] : [...] (Auto) 77.9 H, Lymph % (Auto) 16.7 L,Parke % (Auto) 4.6, Eos % (Auto) 0.0, [...] 40 Minutes Charges/Coding Visit Charges Inpatient E&M: 42749 Subs Hosp L2 09/05/23 0943 <Electronically signed by Laureano Lima MD> Cosigner Signature (if applicable): CC: ~ Signed [facility] Work Phone: 1(582) 555-860312-06-2023 Progress note [facility] 04, 2023 9:17am Note Date/Time September 04, 2023 7 :48am [facility] Medical Records Department [address] [place] [address] Progress Note - Hospitalist 09/04/23 0747 MR#: [id number] Acct: [id number] Name: MEGAN GIMENEZ Rep #:[id number] : [...] % (Auto) 60.4, Lymph % (Auto) 25.6, Parke % (Auto) 11.9 H, Eos % (Auto) [...] 18 minutes. Charges/Coding Visit Charges Inpatient E&M: 94060 Subs Hosp L3 Procedures Hospitalists Procedures: 74337 Advncd Care Plan 30 Min 09/04/23 0917 <Electronically signed by Laureano Lima MD> Cosigner Signature (if applicable): CC: ~ Signed [facility] Work Phone: 1(790) 310-225612-06-2023 History and physical note Author Laureano Jennings [facility] September 04, 2023 5:36am Note Date/Time September 04, 2023 2 :36am [facility] Medical Records Department [address] [place] [address] H&P Exam - Hospitalist 09/04/23 0158 MR#: [id number] Acct: [id number] Name: MEGAN GIMENEZY Rep #:[id number] : [...] planned for next week who presents to [facility] ER complaining of shortness of breath, [...] expected to be greater than 48 hours. [facility] Medical History (Updated 09/04/23 @ 02:[address] Laureano Lucero, ) Abnormal stress test Acute bronchitis with bronchospasm Acute respiratory insufficiency Ambulates with cane Anxiety Aortic stenosis Arthritis Asthma Asymptomatic hypertensive urgency Atherosclerotic heart diseas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 Atrial fibrillation with RVR Back pain Bronchitis CAD in [place] artery Cancer Cardiology follow-up encounter Chronic anticoagulation [...] QHS diabetes 01/22/18 [History Last Taken 03/21/23] rbxvnhxi-je-ytppf 300 mcg-K 60 mcg-lycop 600 mcg-lutein 300 [...] % (Auto) 60.4, Lymph % (Auto) 25.6, Parke % (Auto) 11.9 H, Eos % (Auto) [...] 75 minutes. Charges/Coding Visit Charges Inpatient E&M: 45077 Init Hosp L3 09/04/23 0536 <Electronically signed by Laureano Lucero DO> Cosigner Signature (if applicable): CC: Dr. Laureano Lucero DO; Dr. Jayme Yang MD~ Signed [facility] Work Phone: 1([phone]) 691-864312-06-2023 History and physical note Author Laureano Jennings [facility] September 04, 2023 5:36am Note Date/Time September 04, 2023 2 :36am [facility] Medical Records Department [address] [place] [address]502 H&P Exam - Hospitalist 09/04/23 0158 MR#: [id number] Acct: [id number] Name: MEGAN GIMENEZ Rep #:[id number] : [...] planned for next week who presents to [facility] ER complaining of shortness of breath, [...] expected to be greater than 48 hours. [facility] Medical History (Updated 09/04/23 @ 02:[address] Laureano Lucero, ) Abnormal stress test Acute bronchitis with bronchospasm Acute respiratory insufficiency Ambulates with cane Anxiety Aortic stenosis Arthritis Asthma Asymptomatic hypertensive urgency Atherosclerotic heart diseas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 Atrial fibrillation with RVR Back pain Bronchitis CAD in [place] artery Cancer Cardiology follow-up encounter Chronic anticoagulation [...] QHS diabetes 01/22/18 [History Last Taken 03/21/23] yhuhgxty-tu-fczbq 300 mcg-K 60 mcg-lycop 600 mcg-lutein 300 [...] % (Auto) 60.4, Lymph % (Auto) 25.6, Parke % (Auto) 11.9 H, Eos % (Auto) [...] 75 minutes. Charges/Coding Visit Charges Inpatient E&M: 52274 Init Hosp L3 09/04/23 0536 <Electronically signed by Laureano Lucero DO> Cosigner Signature (if applicable): CC: Dr. Laureano Lucero DO; Dr. Jayme Yang MD~ Signed [facility] Work Phone: 1(224) 153-966912-06-2023 Discharge summary Author Mauricio Soto [facility] September 04, 2023 2:09am Note Date/Time September 04, 2023 2 :00am [facility] Medical Records Department [address] [place] [address] Emergency Department Summary 09/04/23 MR#: [id number] Acct: [id number] Name: MEGAN GIMENEZ Rep #:[id number] : 1945 78 From: Mauricio Soto DO PCP: Dr. Jayme Yang MD Status:REG E R Location: ED [facility] History of Present Illness Chief Complaint: [...] he comes into the ER for evaluation. [facility] Medical History Abnormal stress test Acute bronchitis with bronchospasm Acute respiratory insufficiency Ambulates with cane Anxiety Aortic stenosis Arthritis Asthma Asymptomatic hypertensive urgency Atherosclerotic heart diseas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 Atrial fibrillation with RVR Back pain Bronchitis CAD in [place] artery Cancer Cardiology follow-up encounter Chronic anticoagulation [...] QHS diabetes 01/22/18 [History Last Taken 03/21/23] xrengxle-wf-osdnl 300 mcg-K 60 mcg-lycop 600 mcg-lutein 300 [...] % (Auto) 60.4 Lymph % (Auto) 25.6 Parke % (Auto) 11.9 H Eos % (Auto) [...] Prostate cancer Disposition Disposition: Acute Care Hospital [facility] What to do if you have Problems For any increased pain, shortness of breath, bleeding, nausea or vomiting, chestpain, or any unexpected problems, contact your Primary Care Provider. Call [facility] ([phone]) or report to the closest Emergency Room. Call 911 if necessary. 09/04/23 0209 <Electronically signed by Mauricio Soto DO> Cosigner Signature (if applicable): CC: Dr. Jayme Yang MD ~ Signed [facility] Work Phone: 1(524) 548-801311-08-2023 Discharge summary Author Surinder Larson [facility] August 07, 2023 10:19am Note Date/Time August 07, 2023 1 0:19am [facility] Medical Records Department [address] [place] [address] Instructions for Home/Discharge Instructions 08/07/23 1019 MR#: [id number] Acct: [id number] Name: MEGAN GIMENEZ Rep #:[id number] : [...] Up With: Surinder Larson MD When: Call [phone] for an appointment Test Results: Test results [...] CC: Dr. Jayme Yang MD ~ Signed [facility] Work Phone: 1(333) 209-704011-08-2023 History and physical note Author Surinder Marsha [facility] August 07, 2023 10:19am Note Date/Time August 07, 2023 1 0:19am [facility] Medical Records Department [address] [place] [address] History & Physical Exam 08/07/23 1018 MR#: [id number] Acct: [id number] Name: MEGAN GIMENEZ Rep #:[id number] : 1945 78 From: Surinder Larson MD PCP: Dr. Jayme Yang MD Status:REG S DC Location: [place] [address] HPI - General General Date of Service: 08/07/23 Chief Complaint: Prostate cancer HPI Narrative MEGAN GIMENEZ, is a 78 M who presents for placement of gold markers and spacer gel [facility] Medical History (Updated 07/30/23 @ 08:49 by Bailey Choi) Abnormal stress test Acute bronchitis with bronchospasm Acute respiratory insufficiency Ambulates with cane Anxiety Aortic stenosis Arthritis Asthma Asymptomatic hypertensive urgency Atherosclerotic heart diseas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 Atrial fibrillation with RVR Back pain Bronchitis CAD in [place] artery Cancer Cardiology follow-up encounter Chronic anticoagulation [...] QHS diabetes 01/22/18 [History Last Taken 03/21/23] sofnafhr-xi-exyqq 300 mcg-K 60 mcg-lycop 600 mcg-lutein 300 [...] Larson MD; Dr. Jayme Yang MD~ Signed [facility] Work Phone: [phone]) 410-218911-08-2023 Procedure [facility] 03-26-[address] Bojorquez [facility] March 26, 2023 12:00pm Note Date/Time March 26, 2023 11:4 8am [facility] Medical Records Department [address] [place] [address] Discharge Summary 03/26/23 1145 MR#: [id number] Acct: [id number] Name: MEGAN GIMENEZ Rep #:[id number] : 1945 77 From: Boris matos MD PCP: Dr. Jayme Yang MD Status:ADM I N Location: [place] [address] Providers Date of Admission: 03/21/23 Primary Care Physician: Dr. Jayme Yang MD Reason For Visit: PNEUMONIA Diagnosis Discharge Diagnosis (1) Pneumonia: Status: Acute Code(s): J18.9 - Pneumonia, unspecified organism (2) HTN (hypertension): Status: Chronic Code(s): I10 - Essential (primary) hypertension Medications at Discharge Home Medications glimepiride 2 mg tablet 2 mg PO QHS diabetes 01/22/18 dumsooll-mw-binlr 300 mcg-K 60 mcg-lycop 600 mcg-lutein 300 [...] [facility] and will plan on 5 more days [...] 76.0 H, Lymph % (Auto) 16.7 L, Parke % (Auto) 6.8, Eos % (Auto) 0.0, [...] Self Care Charges/Coding Visit Charges Inpatient E&M: 27412 Disch Hosp >30min 03/26/23 1200 <Electronically signed by Boris Bojorquez MD> Cosigner Signature (if applicable): CC: Dr. Boris Bojorquez MD; Dr. Jayme Yang MD~ Signed [facility] Work Phone: 1(470) 227-293506-27-[address] Bojorquez [facility] March 26, 2023 9:31am Note Date/Time March 26, 2023 9:27 am [facility] Medical Records Department [address] [place] [address] Instructions for Home/Discharge Instructions 03/26/23 0918 MR#: [id number] Acct: [id number] Name: MEGAN GIMENEZ Rep #:[id number] : [...] Home, Self Care 03/26/23 0931<Electronically signed by Boris Bojorquez MD>Boris Bojorquez MD CC: Dr. Pedro Ferreira MD; Dr. Jayme Yang MD ~ Signed [facility] Work Phone: 1(412) 133-748106-26-[address] Bojorquez [facility] March 25, 2023 12:38pm Note Date/Time March 25, 2023 12:3 8pm [facility] Medical Records Department [address] [place] [address] Progress Note - Hospitalist 03/25/23 1229 MR#: [id number] Acct: [id number] Name: MEGAN GIMENEZ Rep #:[id number] : 1945 77 From: Boris matos MD PCP: Dr. Jayme Yang MD Status:ADM I N Location: [place] [address] Subjective Subjective Still with significant productive sputum, [...] DVT: Eliquis Charges/Coding Visit Charges Inpatient E&M: 03430 Subs Hosp L2 03/25/23 1238 <Electronically signed by Boris Bojorquez MD> Cosigner Signature (if applicable): CC: ~ Signed [facility] Work Phone: 1(161) 127-347206-25-[address] Bojorquez [facility] March 24, 2023 9:49am Note Date/Time March 24, 2023 9:49 am [facility] Medical Records Department [address] [place] [address] Progress Note - Hospitalist 03/24/23 0946 MR#: [id number] Acct: [id number] Name: MEGAN GIMENEZ Rep #:[id number] : 1945 77 From: Boris matos MD PCP: Dr. Jayme Yang MD Status:ADM I N Location: [place] [id number] Subjective Subjective Doing well, had to go [...] DVT: Eliquis Charges/Coding Visit Charges Inpatient E&M: 02209 Subs Hosp L2 03/24/23 0963 <Electronically signed by Boris Bojorquez MD> Cosigner Signature (if applicable): CC: ~ Signed [facility] Work Phone: 1([phone]) 541-619706-24-[address] Bojorquez [facility] March 23, 2023 9:03am Note Date/Time March 23, 2023 9:03 am [facility] Medical Records Department [address] [place] [address] Progress Note - Hospitalist 03/23/23 0902 MR#: [id number] Acct: [id number] Name: MEGAN GIMENEZ Rep #:[id number] : 1945 77 From: Boris matos MD PCP: Dr. Jayme Yang MD Status:ADM I N Location: [place] [address] Subjective Subjective Doing well, breathing little bit [...] (Auto) 73.5 H, Lymph % (Auto) 17.5 L,Parke % (Auto) 7.9, Eos % (Auto) 0.1, [...] DVT: Eliquis Charges/Coding Visit Charges Inpatient E&M: 50238 Subs Hosp L2 03/23/23 0903 <Electronically signed by Boris Bojorquez MD> Cosigner Signature (if applicable): CC: ~ Signed [facility] Work Phone: 1(115) 816-758106-23-[address] Bojorquez [facility] March 22, 2023 9:20am Note Date/Time March 22, 2023 9:14 am [facility] Medical Records Department [address] [place] [address] Progress Note - Hospitalist 03/22/23909 MR#: [id number] Acct: [id number] Name: MEGAN GIMENEZ Rep #:[id number] : 1945 77 From: Boris matos MD PCP: Dr. Jayme Yang MD Status:ADM I N Location: [place] [address] Subjective Subjective Doing little bit better, normally [...] 86.9 H, Lymph % (Auto) 8.5 L, Parke % (Auto) 4.0, Eos % (Auto) 0.0, [...] 73.1 H, Lymph % (Auto) 17.6 L, Parke % (Auto) 8.4, Eos % (Auto) 0.1, [...] DVT: Eliquis Charges/Coding Visit Charges Inpatient E&M: 99538 Subs Hosp L2 03/22/23 0920 <Electronically signed by Boris Bojorquez MD> Cosigner Signature (if applicable): CC: ~ Signed [facility] Work Phone: [phone]) 899-222406-23-[address] Ferreira [facility] March 22, 2023 5:27am Note Date/Time March 21, 2023 11:5 8pm [facility] Medical Records Department [address] [place] [address] Pharmacokinetic/Renal -Consult 03/21/23 5612 MR#: [id number] Acct: [id number] Name: MEGAN GIMENEZ Rep #:[id number] : 1945 77 From: Rico Stone PCP: Dr. Jayme Yang MD Status:ADM I N Y Location: [place] [address] Consult Pharmacy has been consulted to manage selected antiobiotic: Vancomycin Type of Consult: New start Suspected Infection: Pneumonia Prior Doses of Antibiotics Received/Current Regimen: Medications Vancomycin HCl 750 mg/ Sodium (Chloride) 265 mls @ 250 mls/hr IV Q12H [facility] Vancomycin HCl 2,000 mg/ (Sodium Chloride) [...] [date and time ordered]: 03/23/23 @1100 03/21/23 5442 <Electronically signed by Rico wesley > Date _ Rico Stone 03/22/23 9273 <Electronically signed by Pedro butler MD> Cosigner Signature (if applicable): Date Pedro Ferreira MD CC: ~ Signed [facility] Work Phone: 1([phone]) 159-982806-23-[address] Sullivan [facility] March 22, 2023 12:32am Note Date/Time March 21, 2023 5:40 pm [facility] Medical Records Department [address] [place] [address] Emergency Department Summary 03/21/23 MR#: [id number] Acct: [id number] Name: MEGAN GIMENEZ Rep #:[id number] : 1945 77 From: James Rocha PCP: Dr. Jayme Yang MD Status:ADM I N Location: [place] [address] HPI History of Present Illness Chief Complaint: Shortness of Breath PFSH [facility] Medical History Abnormal stress test Acute bronchitis with bronchospasm Acute respiratory insufficiency Ambulates with cane Aortic stenosis Arthritis Asthma Asymptomatic hypertensive urgency Atherosclerotic heart diseas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 Atrial fibrillation with RVR Back pain Bronchitis CAD in [place] artery Cardiology follow-up encounter Chronic anticoagulation Closed [...] QHS diabetes 01/22/18 [History Last Taken 03/21/23] vqkcqlim-kxn-ofmmw acid 300 mcg-lycopene 600 mcg-lutein 300 mcg [...] 86.9 H Lymph % (Auto) 8.5 L Parke % (Auto) 4.0 Eos % (Auto) 0.0 [...] Discharge Plan Disposition Disposition: Acute Care Hospital [facility] Discharge Date/Time: 03/21/23 22:20 What to do if you have Problems For any increased pain, shortness of breath, bleeding, nausea or vomiting, chest pain, or any unexpected problems, contact your Primary Care Provider. Call [facility] ([phone]) or report to the closest Emergency Room. Call 911 if necessary. 03/22/2331 <Electronically signed by James Sullivan DO> Cosigner Signature (if applicable): CC: Dr. Jayme Yang MD ~ Signed [facility] Work Phone: 1(560) 731-375006-22-2023 History and physical note Author Dr. Ferreira [facility] March 21, 2023 9:30pm Note Date/Time March 21, 2023 8:25 pm [facility] Medical Records Department [address] [place] [address] H&P Exam - Hospitalist 03/21/232024 MR#: [id number] Acct: [id number] Name: MEGAN GIMENEZ Rep #:[id number] : [...] for patient to stay at the hospital. [facility] Medical History Abnormal stress test Acute bronchitis with bronchospasm Acute respiratory insufficiency Ambulates with cane Aortic stenosis Arthritis Asthma Asymptomatic hypertensive urgency Atherosclerotic heart diseas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 Atrial fibrillation with RVR Back pain Bronchitis CAD in [place] artery Cardiology follow-up encounter Chronic anticoagulation Closed [...] QHS diabetes 01/22/18 [History Last Taken 10/03/22] cnpfqpso-kgw-qyzln acid 300 mcg-lycopene 600 mcg-lutein 300 mcg [...] 86.9 H, Lymph % (Auto) 8.5 L, Parke % (Auto) 4.0, Eos % (Auto) 0.0, [...] A-fib continued. Charges/Coding Visit Charges Inpatient E&M: 29505 Init Hosp L3 03/21/232129 <Electronically signed by Pedro Ferreira MD> Cosigner Signature (if applicable): CC: Dr. Pedro Ferreira MD; Dr. Jayme Ynag MD~ Signed [facility] Work Phone: [phone]) 655-646601-03-[address] Castro [facility] October 02, 2022 6:02pm Note Date/Time October 02, 2022 5: 05pm [facility] Medical Records Department [address] [place] [address] Consultation - Orthopedics 10/02/22 1704 MR#: [id number] Acct: [id number] Name: MEGAN GIMENEZ Rep #:[id number] : [...] or night sweats. No history of trauma [facility] Medical History Abnormal stress test Acute bronchitis with bronchospasm Acute respiratory insufficiency Ambulates with cane Aortic stenosis Arthritis Asthma Asymptomatic hypertensive urgency Atherosclerotic heart diseas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 Atrial fibrillation with RVR Back pain Bronchitis CAD in [place] artery Cardiology follow-up encounter Chronic anticoagulation Closed [...] DAILY diabetes 01/22/18 [History Last Taken 10/01/22] fcdoeuvu-wwn-uysab acid 300 mcg-lycopene 600 mcg-lutein 300 mcg [...] to the lab for stat report. [facility] Office: 10/02/22 1721 [...] cc: Dr. Jayme Yang MD ~* Signed [facility] Work Phone: Evaluation note* Diagnosis Onset [...] test acute Aortic stenosis acute CAD in [place] artery acute Chronic anticoagulation acut e Closed head injury acute Contusion of shoulder acute Diabetes acute Myoclonic jerking acute NSVT (nonsustained ventricular tachycardia) acute Paroxysmal atrial fibrillation acute Syncope acute Asymptomatic hypertensive urgency chronic Essential hypertension [facility] Work Phone: Evaluation note* Diagnosis Onset Date Resolution Status LVH (left ventricular hypertrophy) acute Syncope and collapse acute Hyperlipidemia chronic SUPA (obstructive sleep apnea) chronic Pulmonary hypertension [facility] Syncope and collapse acute Hyperlipidemia chronic Syncope and collapse acute Hyperlipidemia chronic Contusion of shoulder resolv ed Myoclonic jerking resolved Syncope resolved [facility] Work Phone: Evaluation note* Diagnosis Onset Date Resolution Status Syncope and collapse acute Hyperlipidemia chronic Syncope and collapse acute Hyperlipidemia chronic Contusion of shoulder resolv ed Myoclonic jerking resolved Syncope resolved Atherosclerotic 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 acute Fatigue acute Syncope and collapse acute Hyperlipidemia chronic Asthma chronic SUPA (obstructive sleep apnea) chronic Pulmonary hypertension [facility] Work Phone: Evaluation note* Diagnosis Onset Date Resolution Status Syncope and collapse acute Hyperlipidemia chronic Contusion of shoulder resolv ed Myoclonic jerking resolved Syncope resolved Atherosclerotic 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 acute Fatigue acute Syncope and collapse acute Hyperlipidemia chronic Asthma chronic SUPA (obstructive sleep apnea) chronic Pulmonary hypertension [facility] Work Phone: Evaluation note* Diagnosis Onset Date Resolution Status Contusion of shoulder resolv ed Myoclonic jerking resolved Syncope resolved Atherosclerotic 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 acute Fatigue acute Syncope and collapse acute Hyperlipidemia chronic Asthma chronic SUPA (obstructive sleep apnea) chronic Pulmonary hypertension [facility] Work Phone: Evaluation note* Diagnosis Onset Date Resolution Status Atherosclerotic 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 acute Essential hypertension acute Syncope and collapse acute Hyperlipidemia [facility] Work Phone: Evaluation note* Diagnosis Onset Date Resolution Status Asthma chronic SUPA (obstructive sleep apnea) [facility] Work Phone: Evaluation note* Diagnosis Onset Date Resolution Status Asthma chronic SUPA (obstructive sleep apnea) chronic Atherosclerotic 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 acute Essential hypertension acute Fatigue acute Rib pain acute Syncope and collapse acute Hyperlipidemia chronic [facility] Work Phone: Evaluation note* Diagnosis Onset Date Resolution Status Asthma chronic SUPA (obstructive sleep apnea) chronic Atherosclerotic 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 acute Essential hypertension acute Fatigue acute Rib pain acute Syncope and collapse acute Hyperlipidemia chronic Anticoagulant long-term use acute Arthralgia of foot, left acu te Arthralgia of right knee acu te Failure of outpatient treatment acute Gout flare acute History of total knee arthroplasty acute Hypokalemia acute Inability to walk acute [facility] Work Phone: Evaluation note* Diagnosis Onset Date Resolution Status Asthma chronic SUPA (obstructive sleep apnea) chronic Atherosclerotic 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 acute Essential hypertension acute Fatigue acute Rib pain acute Syncope and collapse acute Hyperlipidemia chronic Anticoagulant long-term use acute Arthralgia of foot, left acu te Arthralgia of right knee acu te Failure of outpatient treatment acute Gout flare acute Hypokalemia acute Inability to walk acute [facility] Work Phone: Evaluation note* Diagnosis Onset Date Resolution Status Asthma chronic SUPA (obstructive sleep apnea) chronic Atherosclerotic 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 acute Essential hypertension acute Fatigue acute Rib pain acute Syncope and collapse acute Hyperlipidemia chronic Anticoagulant long-term use acute Arthralgia of foot, left acu te Arthralgia of right knee acu te Failure of outpatient treatment acute Gout flare acute Hypokalemia acute Inability to walk acute Atherosclerotic 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 acute Essential hypertension acute Hyperlipidemia [facility] Work Phone: Evaluation note* Diagnosis Onset Date Resolution Status Atherosclerotic 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 acute Essential hypertension acute Fatigue acute Rib pain acute Syncope and collapse acute Hyperlipidemia chronic Anticoagulant long-term use acute Arthralgia of foot, left acu te Arthralgia of right knee acu te Failure of outpatient treatment acute Gout flare acute Hypokalemia acute Inability to walk acute Atherosclerotic 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 acute Essential hypertension acute Hyperlipidemia chronic Effusion, right knee acute [facility] Work Phone: Evaluation note* Diagnosis Onset Date Resolution Status Effusion, right knee acute Asthma chronic SUPA (obstructive sleep apnea) chronic [facility] Work Phone: Evaluation note* Diagnosis Onset Date Resolution Status Effusion, right knee acute Asthma chronic SUPA (obstructive sleep apnea) chronic Pneumonia acute HTN (hypertension) chronic [facility] Work Phone: Evaluation note* Diagnosis Onset Date Resolution Status Effusion, right knee acute Asthma chronic SUPA (obstructive sleep apnea) chronic Pneumonia acute Sinus drainage acute Asthma chronic SUPA (obstructive sleep apnea) [facility] Work Phone: Evaluation note* Diagnosis Onset Date Resolution Status Asthma chronic SUPA (obstructive sleep apnea) chronic Pneumonia acute Sinus drainage acute Asthma chronic SUPA (obstructive sleep apnea) [facility] Work Phone: Evaluation note* Diagnosis Onset Date Resolution Status Asthma chronic SUPA (obstructive sleep apnea) chronic Pneumonia acute Sinus drainage acute Asthma chronic SUPA (obstructive sleep apnea) chronic Asthma chronic SUPA (obstructive sleep apnea) chronic Atherosclerotic 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 acute Essential hypertension acute Syncope and collapse acute Hyperlipidemia chronic [facility] Work Phone: Evaluation note* Diagnosis Onset Date Resolution Status Pneumonia acute Sinus drainage acute Asthma chronic SUPA (obstructive sleep apnea) chronic Asthma chronic SUPA (obstructive sleep apnea) chronic Atherosclerotic 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 acute Essential hypertension acute Syncope and collapse acute Hyperlipidemia chronic [facility] Work Phone: Evaluation note* Diagnosis Onset Date Resolution Status Asthma chronic SUPA (obstructive sleep apnea) chronic Atherosclerotic 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 acute Essential hypertension acute Syncope and collapse acute Hyperlipidemia chronic [id number] acute [facility] Work Phone: Evaluation note* Diagnosis Onset Date Resolution Status Asthma chronic SUPA (obstructive sleep apnea) chronic Atherosclerotic 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 acute Essential hypertension acute Syncope and collapse acute Hyperlipidemia chronic [id number] acute Asthma chronic SUPA (obstructive sleep apnea) chronic Acute bronchitis with bronchospasm acute Acute respiratory insufficiency acute [id number] acute COVID-19 acute Dyspnea on exertion acute Prostate cancer acute [facility] Work Phone: Evaluation note* Diagnosis Onset Date Resolution Status Atherosclerotic 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 acute Essential hypertension acute Syncope and collapse acute Hyperlipidemia chronic [id number] acute Asthma chronic SUPA (obstructive sleep apnea) chronic Acute bronchitis with bronchospasm acute Acute respiratory insufficiency acute [id number] acute COVID-19 acute Dyspnea on exertion acute Prostate cancer acute [id number] acute [facility] Work Phone: Evaluation note* Diagnosis Onset Date Resolution Status Atherosclerotic 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 acute Essential hypertension acute Syncope and collapse acute Hyperlipidemia chronic [id number] acute Asthma chronic SUPA (obstructive sleep apnea) chronic Acute bronchitis with bronchospasm acute Acute respiratory insufficiency acute [id number] acute COVID-19 acute Dyspnea on exertion acute Prostate cancer acute [id number] acute Acute dyspnea acute Chronic anticoagulation acut e History of atrial fibrillation acute History of diabetes mellitus acute Pneumonia acute [facility] Work Phone: Evaluation note* Diagnosis Onset Date Resolution Status [id number] acute Asthma chronic SUPA (obstructive sleep apnea) chronic Acute bronchitis with bronchospasm acute Acute respiratory insufficiency acute [id number] acute COVID-19 acute Dyspnea on exertion acute Prostate cancer acute [id number] acute Acute dyspnea acute Chronic anticoagulation acut e History of atrial fibrillation acute History of diabetes mellitus acute Pneumonia acute [facility] Work Phone: Evaluation note* Diagnosis Onset Date Resolution Status Asthma chronic SUPA (obstructive sleep apnea) chronic Acute bronchitis with bronchospasm acute Acute respiratory insufficiency acute Dyspnea on exertion acute Chronic anticoagulation acut e History of atrial fibrillation acute History of diabetes mellitus acute Chest pain acute Diabetes acute Dyspnea acute History of coronary artery disease acute Nausea & vomiting acute [facility] Work Phone: Evaluation note* Diagnosis Onset Date Resolution Status Asthma chronic SUPA (obstructive sleep apnea) chronic Acute bronchitis with bronchospasm acute Acute respiratory insufficiency acute Dyspnea on exertion acute Chronic anticoagulation acut e History of atrial fibrillation acute History of diabetes mellitus acute Chronic anticoagulation acut e Atherosclerotic 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 acute Chest pain acute Diabetes acute Dyspnea acute Essential hypertension acute History of coronary artery disease acute History of left heart catheterization (LHC) November, 2 acute Hypokalemia acute Nausea & vomiting acute NSTEMI, initial episode of care acute Atrial fibrillation with RVR chronic [facility] Work Phone: Evaluation note* Diagnosis Onset Date Resolution Status Acute bronchitis with bronchospasm acute Acute respiratory insufficiency acute [id number] acute Dyspnea on exertion acute [id number] acute Chronic anticoagulation acut e History of atrial fibrillation acute History of diabetes mellitus acute [id number] acute [id number] acute [id number] acute [id number]-[id number] acute Chronic anticoagulation acut e Atherosclerotic 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 acute Chest pain acute Diabetes acute Dyspnea acute Essential hypertension acute History of coronary artery disease acute History of left heart catheterization ([facility]) November, 2 acute Hypokalemia acute Nausea & vomiting acute Atrial fibrillation with RVR chronic NSTEMI, initial episode of care resolved [id number] acute Asthma chronic Dementia chronic SUPA (obstructive sleep apnea) chronic Pulmonary hypertension chron ic Atherosclerotic 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 acute Fatigue acute Nonrheumatic aortic (valve) stenosis acute On amiodarone therapy acute Paroxysmal atrial fibrillation acute [facility] Work Phone: Evaluation note* Diagnosis Onset Date Resolution Status [id number] acute Chronic anticoagulation acut e History of atrial fibrillation acute History of diabetes mellitus acute [id number] acute [id number]-[id number] acute LAP-[id number] acute [id number] acute Chronic anticoagulation acut e Atherosclerotic 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 acute Chest pain acute Diabetes acute Dyspnea acute Essential hypertension acute History of coronary artery disease acute History of left heart catheterization ([facility]) November, 2 acute Hypokalemia acute Nausea & vomiting acute Atrial fibrillation with RVR chronic NSTEMI, initial episode of care resolved [id number] acute Asthma chronic Dementia chronic SUPA (obstructive sleep apnea) chronic Pulmonary hypertension chron ic Atherosclerotic 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 acute Fatigue acute Nonrheumatic aortic (valve) stenosis acute On amiodarone therapy acute Paroxysmal atrial fibrillation acute [facility] Work Phone: Evaluation note* Diagnosis Onset Date Resolution Status [id number] acute Asthma chronic SUPA (obstructive sleep apnea) chronic Acute bronchitis with bronchospasm acute Acute respiratory insufficiency acute [id number] acute COVID-19 acute Dyspnea on exertion acute Prostate cancer acute [id number] acute Acute dyspnea acute Chronic anticoagulation acut e History of atrial fibrillation acute History of diabetes mellitus acute [id number] acute [id number] acute [id number] acute [id number] acute [facility] Work Phone: [facility] Work Phone: Hospital Discharge instructionsAmbulatory Orders* Ears, Nose and Throat Location: None Selected [facility] Work Phone: Hospital Discharge instructions Additional Instructions Implant Used?: YesWSouth[facility] Work Phone: Hospital Discharge instructions Additional Instructions [...] Your labs and chest x-ray look good today.[facility] Work Phone: Reason for referral (narrative)No reason for referral information availableWSouthwest General Health Center Work Phone: Summary Purpose Family History No [...] Yes December 21, 2021 2:30pm Power of Consulting Solution Manager Yes December 21 2:30pm Advance Directive Response Recorded Date/ Time Name of Medical Power of Consulting Solution Manager DAISY December 21, 2021 2:30pm Advance Directives No December 18 9:33am Living Will Yes December 21, 2021 2:30pm Power of Consulting Solution Manager Yes December 21 2:30pm Advance Directive Response Recorded Date/ Time Advance Directives No December 18 8:33am Living Will Yes December 21, 2021 1:30pm Power of Consulting Solution Manager Yes December 21 1:30pm Advance Directive Response Recorded Date/ Time Advance Directives No December 18, 8:33am Living Will No October 02 10:54am Power of Consulting Solution Manager No October 02, 10:54am Advance Directive Response Recorded Date/ Time Name of Medical Power of Consulting Solution Manager Daisy Gimenez October 04, 2022 5:42pm Advance Directives No December 18 8:33am Living Will Yes October 04 5:42pm Power of Consulting Solution Manager Yes October 04 5:42pm Advance Directive Response Recorded Date/ Time Name of Medical Power of Consulting Solution Manager Daisy Gimenez October 04, 2022 6:42pm Advance Directives No December 18 9:33am Living Will Yes October 04 6:42pm Power of Consulting Solution Manager Yes October 04, 6:42pm Advance Directive Response Recorded Date/ Time Advance Directives No December 18 9:33am Living Will Yes October 04 6:42pm Power of Consulting Solution Manager Yes October 04, 6:42pm Advance Directive Response Recorded Date/ Time Name of Medical Power of Consulting Solution Manager Faye Urbano, daughter and Natasha Gimenez, March 21, 2023 10:30pm Advance Directives No December 18 9:33am Living Will Yes March 21, 2023 10:30pm Power of Consulting Solution Manager Yes March 21 10:30pm Advance Directive Response Recorded Date/ Time Name of Medical Power of Consulting Solution Manager July 30, 2023 7:30am Advance Directives No December 18 8:33am Living Will Yes July 30 7:30am Power of Consulting Solution Manager Yes July 30, 2023 7:30am Advance Directive Response Recorded Date/ Time Name of Medical Power of Consulting Solution Manager DAISY GIMENEZ September 03, 2023 11:32pm Advance Directives No December 18 8:33am Living Will Yes September 03 11:32pm Power of Consulting Solution Manager Yes September 03, 2023 11:32pm Name of Medical Power of Consulting Solution Manager July 30, 2023 7:30am Advance Directive Response Recorded Date/ Time Name of Medical Power of Consulting Solution Manager DAISY GIMENEZ September 04, 2023 6:12am Advance Directives No December 18 8:33am Living Will Yes September 04 6:12am Power of Consulting Solution Manager Yes September 04, 2023 6:12am Name of Medical Power of Consulting Solution Manager July 30, 2023 7:30am Advance Directive Response Recorded Date/ Time Name of Medical Power of Consulting Solution Manager DAISY GIMENEZ September 04, 2023 6:12am Name of Medical Power of Consulting Solution Manager July 30, 2023 7:30am Name of Medical Power of Consulting Solution Manager daughter Faye Wells, and his . September 20, 2023 4:01pm Advance Directives No December 18 8:33am Living Will Yes September 20 4:01pm Power of Consulting Solution Manager Yes September 20, 2023 4:01pm Advance Directive Response Recorded Date/ Time Name of Medical Power of Consulting Solution Manager DAISY GIMENEZ September 04, 2023 6:12am Name of Medical Power of Consulting Solution Manager NATASHA GIMENEZ November 11, 2023 7:52pm Advance Directives No December 18 8:33am Living Will No November 11 7:52pm Power of Consulting Solution Manager Yes November 11, 2023 7:52pm Name of Medical Power of Consulting Solution Manager July 30, 2023 7:30am Name of Medical Power of Consulting Solution Manager daughter Faye Wells, and his . September 20, 2023 4:01pm Advance Directive Response Recorded Date/ Time Name of Medical Power of Consulting Solution Manager DAISY GIMENEZ September 04, 2023 6:12am Name of Medical Power of Consulting Solution Manager NATASHA GIMENEZ November 11, 2023 10:52pm Advance Directives No December 18 8:33am Living Will Yes November 11 10:52pm Power of Consulting Solution Manager Yes November 11, 2023 10:52pm Name of Medical Power of Consulting Solution Manager July 30, 2023 7:30am Name of Medical Power of Consulting Solution Manager daughter Faye Wells, and his . September 20, 2023 4:01pm Advance Directive Response Recorded Date/ Time Name of Medical Power of Consulting Solution Manager DAISY GIMENEZ September 04, 2023 7:12am Name of Medical Power of Consulting Solution Manager NATASHA GIMENEZ November 11, 2023 11:52pm Name of Medical Power of Consulting Solution Manager daughter Faye Wells, and his . September 20, 2023 5:01pm Advance Directives No October 10:20am Living Will Yes November 19 10:20am Power of Consulting Solution Manager Yes November 19, 2023 10:20am Advance Directive Response Recorded Date/ Time Name of Medical Power of Consulting Solution Manager NATASHA GIMENEZ November 11, 2023 11:52pm Name of Medical Power of Consulting Solution Manager daughter Faye Wells, and his . September 20, 2023 5:01pm Advance Directives No October 10:20am Living Will Yes November 19 10:20am Power of Consulting Solution Manager Yes November 19, 2023 10:20am Advance Directive Response Recorded Date/ Time Living Will Yes November 19 10:20am Do you have a Healthcare Power of Consulting Solution Manager? Yes November 19, 2023 10:20am Living Will Yes May 27 11:05am Do you have a Healthcare Power of Consulting Solution Manager? Yes May 27, 2024 11:05am Advance Directives No May 27, 2024 11:05am Advance Directive Response Recorded Date/ Time Living Will Yes November 19 10:20am Do you have a Healthcare Power of Consulting Solution Manager? Yes November 19, 2023 10:20am Living Will Yes May 27 11:05am Do you have a Healthcare Power of Consulting Solution Manager? Yes May 27, 2024 11:05am Do you have a Healthcare Power of Consulting Solution Manager? Yes February 15, 2025 4:56pm Name of Medical Power of Consulting Solution Manager Daisy Gimenez February 15, 2025 4:56pm Advance Directives No May 27, 2024 11:05am Hospital Course Note HNO ID: [id number] Author: Erica Greco MD Service: Hospital Medicine [...] Abnormal stress test Aortic stenosis CAD in [place] artery Chronic anticoagulation Closed head injury Contusion [...] Myoclonic jerking Syncope Atherosclerotic heart diseas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 Fatigue Syncope [...] Myoclonic jerking Syncope Atherosclerotic heart diseas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 Fatigue Syncope and collapse Hyperlipidemia Asthma SUPA (obstructive sleep apnea) Pulmonary hypertension Chief Complaint SYNCOPE,AFIB HX,ANTI COAGULATION SYNCOPE,AFIB HX,ANTICOAGULATION SYNCOPE,AFIB HX,ANTICOAGULATION SYNCOPE,AFIB HX,ANTICOAGULATION SYNCOPE,AFIB HX,ANTICOAGULATION ABN STRESS TEST, NSVT, SYNCOPE & COLLAPSE, HTN, PA 6-8 WK F/U 6 M FU E ORDER Reason for Visit Contusion of shoulde r Myoclonic jerking Syncope Atherosclerotic heart diseas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 Fatigue Syncope and collapse Hyperlipidemia Asthma SUPA (obstructive sleep apnea) Pulmonary hypertension Chief Complaint 3 M FU PULMONARY HYPERTENION PULMONARY HYPERTENION INT LABS Reason for Visit Atherosclerotic hear t diseas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 Essential hypertension Syncope and collapse Hyperlipidemia Chief Complaint 3 M FU PULMONARY HYPERTENION PULMONARY HYPERTENION INT LABS ESSENTIAL HYPERTENSION Reason for Visit Atherosclerotic hear t diseas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 Essential hypertension Syncope and collapse Hyperlipidemia Chief Complaint PULMONARY HYPERTENIO N PULMONARY HYPERTENION INT LABS ESSENTIAL HYPERTENSION 6 M FU Reason for Visit Asthma SUPA (obstructive sleep apnea) Chief Complaint PULMONARY HYPERTENIO N PULMONARY HYPERTENION INT LABS ESSENTIAL HYPERTENSION 6 M FU 5 MO F/U EORDERS Reason for Visit Asthma SUPA (obstructive sleep apnea) Atherosclerotic heart diseas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 Essential hypertension Fatigue Rib pain Syncope and collapse Hyperlipidemia Chief Complaint PULMONARY HYPERTENIO N PULMONARY HYPERTENION INT LABS ESSENTIAL HYPERTENSION 6 M FU 5 MO F/U EORDERS S/O- PAIN- COPY PCP RIGHT KNEE Reason for Visit Asthma SUPA (obstructive sleep apnea) Atherosclerotic heart diseas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 Essential hypertension Fatigue Rib pain Syncope and collapse Hyperlipidemia Chief Complaint PULMONARY HYPERTENIO N PULMONARY HYPERTENION INT LABS ESSENTIAL HYPERTENSION 6 M FU 5 MO F/U EORDERS S/O- PAIN- COPY PCP RIGHT KNEE GOUT FLARE/INABILITY TO AMBULATE Pain Reason for Visit Asthma SUPA (obstructive sleep apnea) Atherosclerotic heart diseas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 Essential hypertension [...] (obstructive sleep apnea) Atherosclerotic heart diseas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 Essential hypertension [...] (obstructive sleep apnea) Atherosclerotic heart diseas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 Essential hypertension [...] (obstructive sleep apnea) Atherosclerotic heart diseas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 Essential hypertension Fatigue Rib pain Syncope and collapse Hyperlipidemia Anticoagulant long-term use Arthralgia of foot, left Arthralgia of right knee Failure of outpatient treatment Gout flare Hypokalemia Inability to walk Atherosclerotic heart diseas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 Essential hypertension Hyperlipidemia Chief Complaint 5 MO F/U EORDERS S/O- PAIN- COPY PCP RIGHT KNEE GOUT FLARE/INABILITY TO AMBULATE Pain GOUT FLARE/INABILITY TO AMBULATE 8 wk fu PAIN- COPY PCP PAIN- COPY PCP Reason for Visit Atherosclerotic hear t diseas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 Essential hypertension Fatigue Rib pain Syncope and collapse Hyperlipidemia Anticoagulant long-term use Arthralgia of foot, left Arthralgia of right knee Failure of outpatient treatment Gout flare Hypokalemia Inability to walk Atherosclerotic heart diseas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 Essential hypertension [...] (obstructive sleep apnea) Atherosclerotic heart diseas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 Essential hypertension Syncope and collapse Hyperlipidemia Chief Complaint LEFT WRIST AND LEFT ELBOW PAIN Shortness of breath PNEUMONIA Pneumonia Pneumonia Pneumonia Pneumonia Pneumonia Hospital FU PSA 6 wk FU 1 Y FU PROSTATE CA PROSTATE CA Reason for Visit Pneumonia Sinus drainage Asthma SUPA (obstructive sleep apnea) Asthma SUPA (obstructive sleep apnea) Atherosclerotic heart diseas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 Essential hypertension Syncope and collapse Hyperlipidemia Chief Complaint PSA 6 wk FU 1 Y FU PROSTATE CA PROSTATE CA CONSULT - PROSTATE [employer] repairer placement for radiat Reason for Visit Asthma SUPA (obstructive sleep apnea) Atherosclerotic heart diseas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 Essential hypertension Syncope and collapse Hyperlipidemia [id number] Chief Complaint 6 wk FU 1 Y FU PROSTATE CA PROSTATE CA CONSULT - PROSTATE [employer] gear repairer placement for radiat 6 M FU Malignant neoplasm of prostate . COVID 19, ACUTE BRONCHITIS W/BRONCHOSPASM & GEN Reason for Visit Asthma SUPA (obstructive sleep apnea) Atherosclerotic heart diseas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 Essential hypertension Syncope and collapse Hyperlipidemia [id number] Asthma SUPA (obstructive sleep apnea) Acute bronchitis with bronchospasm Acute respiratory insufficiency [id number] COVID-19 Dyspnea on exertion Prostate cancer Chief Complaint 6 wk FU 1 Y FU PROSTATE CA PROSTATE CA CONSULT - PROSTATE [employer] gear repairer placement for radiat 6 M FU Malignant neoplasm of prostate . COVID 19, ACUTE BRONCHITIS W/BRONCHOSPASM & GEN COVID 19, ACUTE BRONCHITIS W/BRONCHOSPASM & GEN Reason for Visit Asthma SUPA (obstructive sleep apnea) Atherosclerotic heart diseas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 Essential hypertension Syncope and collapse Hyperlipidemia [id number] Asthma SUPA (obstructive sleep apnea) Acute bronchitis with bronchospasm Acute respiratory insufficiency [id number] COVID-19 Dyspnea on exertion Prostate cancer Chief Complaint 1 Y FU PROSTATE CA PROSTATE CA CONSULT - PROSTATE [employer] gear repairer placement for radiat 6 M FU Malignant neoplasm of prostate COVID 19, ACUTE BRONCHITIS W/BRONCHOSPASM & GEN COVID 19, ACUTE BRONCHITIS W/BRONCHOSPASM & GEN OTV OTV . Reason for Visit Atherosclerotic hear t diseas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 Essential hypertension Syncope and collapse Hyperlipidemia [id number] Asthma SUPA (obstructive sleep apnea) Acute bronchitis with bronchospasm Acute respiratory insufficiency [id number] COVID-19 Dyspnea on exertion Prostate cancer [id number] Chief Complaint 1 Y FU PROSTATE CA PROSTATE CA CONSULT - PROSTATE [employer] gear repairer placement for radiat 6 M FU Malignant neoplasm of prostate COVID 19, ACUTE BRONCHITIS W/BRONCHOSPASM & GEN COVID 19, ACUTE BRONCHITIS W/BRONCHOSPASM & GEN OTV OTV . RLL PNEUMONIA, A-FIB, HX Reason for Visit Atherosclerotic hear t diseas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 Essential hypertension Syncope and collapse Hyperlipidemia [id number] Asthma SUPA (obstructive sleep apnea) Acute bronchitis with bronchospasm Acute respiratory insufficiency [id number] COVID-19 Dyspnea on exertion Prostate cancer [id number] Acute dyspnea Chronic anticoagulation History of atrial fibrillation History of diabetes mellitus Pneumonia Chief Complaint PROSTATE CA PROSTATE CA CONSULT - PROSTATE [employer] gear repairer placement for radiat 6 M FU Malignant neoplasm of prostate COVID 19, ACUTE BRONCHITIS W/BRONCHOSPASM & GEN COVID 19, ACUTE BRONCHITIS W/BRONCHOSPASM & GEN OTV OTV RLL PNEUMONIA, A-FIB, HX RLL PNEUMONIA, A-FIB, HX RLL PNEUMONIA, A-FIB, HX RLL PNEUMONIA, A-FIB, HX RLL PNEUMONIA, A-FIB, HX . Reason for Visit [id number] Asthma SUPA (obstructive sleep apnea) Acute bronchitis with bronchospasm Acute respiratory insufficiency [id number] COVID-19 Dyspnea on exertion Prostate cancer [id number] Acute dyspnea Chronic anticoagulation History of atrial [...] mellitus Chronic anticoagulation Atherosclerotic heart diseas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 Chest pain [...] F/U POST RT 6 M FU S/P [facility] 11/13 Reason for Visit Acute bronchitis wit h bronchospasm Acute respiratory insufficiency [id number] Dyspnea on exertion [id number] Chronic anticoagulation History of atrial fibrillation History of diabetes mellitus [id number] [id number] [id number]-[id number] Chronic anticoagulation Atherosclerotic heart diseas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 Chest pain Diabetes Dyspnea Essential hypertension History of coronary artery disease History of left heart catheterization (LHC) Hypokalemia Nausea & vomiting Atrial fibrillation with RVR NSTEMI, initial episode of care [id number] Asthma Dementia SUPA (obstructive sleep apnea) Pulmonary hypertension Atherosclerotic heart diseas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 Fatigue Nonrheumatic [...] F/U POST RT 6 M FU S/P [facility] 11/13 PAIN- COPY PCP Reason for Visit [id number] Chronic anticoagulation History of atrial fibrillation History of diabetes mellitus [id number] Chronic anticoagulation Atherosclerotic heart diseas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 Chest pain Diabetes Dyspnea Essential hypertension History of coronary artery disease History of left heart catheterization (LHC) Hypokalemia Nausea & vomiting Atrial fibrillation with RVR NSTEMI, initial episode of care [id number] Asthma Dementia SUPA (obstructive sleep apnea) Pulmonary hypertension Atherosclerotic heart diseas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 Fatigue Nonrheumatic aortic (valve) stenosis On amiodarone therapy Paroxysmal atrial fibrillation Chief Complaint CONSULT - PROSTATE [employer] and gear repairer placement for radiat 6 M FU Malignant neoplasm of prostate COVID 19, ACUTE BRONCHITIS W/BRONCHOSPASM & GEN COVID 19, ACUTE BRONCHITIS W/BRONCHOSPASM & GEN OTV OTV RLL PNEUMONIA, A-FIB, HX RLL PNEUMONIA, A-FIB, HX RLL PNEUMONIA, A-FIB, HX RLL PNEUMONIA, A-FIB, HX RLL PNEUMONIA, A-FIB, HX RLL PNEUMONIA, A-FIB, HX OTV OTV OTV OTV . Amb Documentation Reason for Visit [id number] Asthma SUPA (obstructive sleep apnea) Acute bronchitis with bronchospasm Acute respiratory insufficiency [id number] COVID-19 Dyspnea on exertion Prostate cancer [id number] Acute dyspnea Chronic anticoagulation History of atrial fibrillation History of diabetes mellitus [id number] Chief Complaint Admit Date EORDER- PSA October [...] section and content) DATE CREATED AUTHOR 02/24/2020 [facility] DATE CREATED AUTHOR AUTHOR'S ORGANIZ ATION 02/25/2020 [facility] DATE CREATED AUTHOR AUTHOR'S ORGANIZ ATION 03/09/2025 [facility] Goals (unrecognized section and content) Goals may [...] Care Provider, Referring Provider Active Dyan Chavez RANGE MOUNTER, RANGE MOUNTER-C Attending Provider Active Team Status: Active Member [...] Primary Care Provider Active Dyan Chavez NP, RANGE MOUNTER-C Attending Provider, Referring P [place] Active Team [...] Care Provider, Referring Provider Active Emerald Campos RANGE MOUNTER, RANGE MOUNTER-C Attending Provider Active Team Status: Inactive Member [...] Status: Inactive Member Role Status Dates Dr. Jyame Yang MD Primary Care Provider Active Dr. [...] Marie MD Other Provider Active Teja Jefferson RANGE MOUNTER, RANGE MOUNTER-C Other Provider Active Dyan Chavez RANGE MOUNTER, RANGE MOUNTER-C Other Provider Active Faye Martinez PA, PA [...] Marie MD Other Provider Active Teja Jefferson RANGE MOUNTER, RANGE MOUNTER-C Other Provider Active Dyan Chavez RANGE MOUNTER, RANGE MOUNTER-C Other Provider Active Faye Martinez PA, PA [...] Marie MD Other Provider Active Teja Jefferson RANGE MOUNTER, RANGE MOUNTER-C Other Provider Active Dyan Chavez RANGE MOUNTER, RANGE MOUNTER-C Other Provider Active Faye Martinez PA, PA [...] Marie MD Other Provider Active Teja Jefferson RANGE MOUNTER, RANGE MOUNTER-C Other Provider Active Dyan Chavez RANGE MOUNTER, RANGE MOUNTER-C Other Provider Active Faye Martinez PA, PA [...] Naqvi MD Other Provider Active Dr. Suzie Asthon MD Other Provider Active Dr. Rachid Escobedo MD Other Provider Active Dr. Myrna Hendrix MD Other Provider Active Dr. Clifford Cordero MD Other Provider Active Dr. Jayme Lino MD Other Provider Active Dr. Channing Maldonado MD Other Provider Active Dr. Domenico Ordaz MD Other Provider Active Dr. Nabil Marie MD Other Provider Active Teja Jefferson RANGE MOUNTER, RANGE MOUNTER-C Other Provider Active Dyan Chavez RANGE MOUNTER, RANGE MOUNTER-C Other Provider Active Faye Martinez PA, PA Other Provider Active Dr. Js Lee , Other Provider Active Dr. Boris Bojorquez MD Attending Provider, Other Provider Active Team Status: Active Member Role Status Dates Dr. Jayme Yang MD Primary Care Provider Active Dr. Suzie Ashton MD Attending Provider Active Dr. Laureano Lucero DO Referring Provider Active Team Status: Inactive Member Role Status Dates Dr. Jyame Yang MD Primary Care Provider, Referring Provider [...] 2024 End: November 17, 2024 Emerald Campos RANGE MOUNTER, RANGE MOUNTER-C Attending Provider Active Start: November 17, 2024 End: November 17, 2024 Team Status: Inactive Member Role Status Dates Dr. Jayme Yang MD Primary Care Provider Active Start: November 27, 2024 End: November 27, 2024 Dr. Jayme Yang MD Referring Provider Active Start: November 27, 2024 End: November 27, 2024 Teja Jefferson NP, RANGE MOUNTER-C Attending Provider Active S tart: November 27, 2024 End: November 27, 2024 Team Status: Inactive Member Role Status Dates Dr. Jyame Yang MD Primary Care Provider Active Start: December 10, 2024 End: December 10, 2024 Teja Jefferson RANGE MOUNTER, RANGE MOUNTER-C Attending Provider Active S tart: December 10, 2024 End: December 10, 2024 Teja Jefferson RANGE MOUNTER, RANGE MOUNTER-C Referring Provider Active S tart: December 10, 2024 End: December 10, 2024 Team Status: Active Member Role Status Dates Dr. Jayme Yang MD Primary Care Provider Active Start: December 10, 2024 Teja Jefferson RANGE MOUNTER, RANGE MOUNTER-C Referring Provider Active S tart: December 10, 2024 Teja Jefferson RANGE MOUNTER, RANGE MOUNTER-C Other Provider Active Start : December 10, [...] BE BASED ON THE PRIMARY CLINICAL RECORDS. [employer]. provides no warranty or guarantee of the accuracy or completeness of information in this document.
[2025-04-03 11:44] LABS: PSA,Total- Diagnostic 0.04 ng/mL (0.00-4.00)
== END | disposition home or self-care (01) ==
LOC: LAB 10:28
PROVIDERS: PCP Family Medicine; Referring Provider Student in an Organized Health Care Education/Training Program; Visit Provider Student in an Organized Health Care Education/Training Program
DX: C61 Malignant neoplasm of prostate (principal)
CPT/HCPCS: 36415; 84153

== ENCOUNTER → 2025-05-27 | Outpatient (CLI) | payer MEDICARE, SELFPAY ==
[2025-05-27 16:11] LABS: Hematocrit 32.3 % (40-54); Hemoglobin 10.7 g/dL (13.0-16.5); Immature Granulocytes Count 0.010 X10^3/uL (0.0-0.0); Mean Corp Hgb Conc 33.1 g/dL (32-36); Mean Corpuscular Volume 92.8 fL (80-94); Mean Platelet Vol. 11.2 fl (6.2-12.0); NRBC Flagged by Analyzer 0 % (0-5); Platelet Count 157 K/mm3 (150-450); RBC Distribution Width CV 15.7 % (11.6-14.6); RBC Distribution Width SD 53.7 fl (35.1-43.9); Red Blood Count 3.48 M/mm3 (4.6-6.2); White Blood Count 5.5 K/mm3 (4.4-11.0)
[2025-05-27 17:16] LABS: AST(SGOT) 36 U/L (<=37); Alanine Aminotransfer ALT/SGPT 47 U/L (<=46); Albumin, Serum 4.0 g/dL (3.4-4.8); Alkaline Phosphatase 53 U/L (40-129); Anion Gap 12 (5-15); BUN 21 mg/dL (4-19); BUN/Creat Ratio 13.9 RATIO (10-20); Calcium,Total 9.0 mg/dL (7.6-11.0); Carbon Dioxide 25.8 mmol/L (21.0-32.0); Chloride 104 mmol/L (98-108); Globulin 2.9 g/dL (2.2-4.2); Glucose 108 mg/dL (70-99); Potassium 3.6 mmol/L (3.3-5.1); Uric Acid 6.1 mg/dL (3.5-7.2)
== END | disposition home or self-care (01) ==
LOC: MTLAB 12:45
PROVIDERS: PCP Family Medicine; Referring Provider Internal Medicine Rheumatology; Visit Provider Internal Medicine Rheumatology
DX: M06.00 Rheumatoid arthritis without rheumatoid factor, unspecified site (principal); M15.9 Polyosteoarthritis, unspecified; Z79.899 Other long term (current) drug therapy
CPT/HCPCS: 36415; 80053; 84550; 85025

== ENCOUNTER 2025-05-29 10:28 | Emergency (ER) | payer MEDICARE, SELFPAY ==
[2025-05-29 10:29] VITALS: BP 132/63; PULSE 71; RESP 16; TEMP 36.3; O2SAT 97
--- NOTE | 2025-05-29 11:41 | RAD_ITS ---
PROCEDURE: KNEE 4 OR MORE VIEWS 05/29/2025 REASON FOR EXAM: TRAUMA TECHNIQUE: Procedure Code: RADKN Modality: DX Procedure: KNEE 4 OR MORE VIEWS Laterality: COMPARISON: None. FINDINGS: Bones: No acute periprosthetic fracture. Joints: Status post total left knee replacement. Effusion: Obliteration of the suprapatellar fossa consistent with small pleural effusion. Soft tissues: Vascular atherosclerotic calcifications. RAD/Knee 4 or More Views IMPRESSION: No acute findings. Reading Location: [id number]
--- NOTE | 2025-05-29 11:41 | ED.VIS.LOWEX ---
HPI History of Present Illness Chief Complaint: Lower Extremity Injury Narrative Narrative: 79-year-old male past medical history of bilateral total knee arthroplasties approximately 22 years ago presents with left knee pain status post fall yesterday. He states his left knee buckled on him and he fell onto his left knee. He now has pain worse with bending and extension of his left knee. It is more on the medial aspect. He denies hitting his head or loss of consciousness, no other injuries. After he had fallen, he states that he was able to go on about his day. 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 However yesterday evening after he sat down and rested he began having pain in his medial left knee. He took Tylenol with mild relief. He presents with his with concern for fracture and continued pain. Does not take blood thinners. No neck pain. [facility] Medical History Abrasion of chin Dysuria BiPAP (biphasic positive airway pressure) dependence Pneumonia Prostate cancer Dyspnea on exertion Depression Anxiety High cholesterol Cancer of prostate with intermediate recurrence risk (stage T2b-c or [place] 7 or PSA 10-20) Heart failure Prostate cancer Sinus drainage HTN (hypertension) Pneumonia Hypokalemia Gout flare Inability to walk Arthralgia of right knee Arthralgia of foot, left Anticoagulant long-term use Effusion, right knee Effusion, left knee Rib pain White coat syndrome without diagnosis of hypertension Fatigue Nonrheumatic aortic (valve) stenosis Atherosclerotic heart disease of [place] coronary artery without angina pectoris Closed head injury Abnormal stress test NSVT (nonsustained ventricular tachycardia) Aortic stenosis LVH (left ventricular hypertrophy) Syncope and collapse SOB (shortness of breath) Wears dentures Wears hearing aid Wears glasses History of steroid therapy Rheumatoid arthritis Arthritis History of renal disease Excessive bleeding Back pain Loss of consciousness Injury of head and neck Gastric reflux Former smoker CPAP (continuous positive airway pressure) dependence Sleep apnea History of edema History of echocardiogram History of stress test Cardiology follow-up encounter History of atrial fibrillation Acute bronchitis with bronchospasm Paroxysmal atrial fibrillation COVID-19 virus infection Severe acute respiratory syndrome coronavirus 2 (SARS-CoV-2) infection ruled out Sepsis Asthma Intractable pain Renal colic on left side Ureterolithiasis Dementia Kidney stones Asymptomatic hypertensive urgency Concussion Essential hypertension Pulmonary hypertension SUPA (obstructive sleep apnea) Diverticula of colon Colitis Bronchitis Atrial fibrillation with RVR Hypertensive urgency Rhinovirus Severe sepsis Acute respiratory insufficiency DM2 (diabetes mellitus, type 2) Hyperlipidemia Inflammatory bowel disease Rheumatoid aortitis Home Medications ?Medication ?Instructions ?Recorded ?Last Taken ?Type duloxetine 60 mg capsule,delayed 60 mg PO DAILY depression 06/02/19 09/20/23 History release (Cymbalta) buspirone 7.5 mg tablet 7.5 mg PO BID depression/anxiety 04/12/21 09/20/23 History latanoprost 0.005 % eye drops 1 drp LEFT EYE QPM eye health 12/22/21 03/20/23 History gabapentin 600 mg tablet 300 mg PO BID neuropathy 01/26/22 11/11/23 17:00 History 300 mg carvedilol 25 mg tablet 25 mg PO BID HEART 10/02/22 09/20/23 History timolol maleate 0.5 % eye drops 1 drp LEFT EYE DAILY EYE HEALTH 10/04/22 03/20/23 History infliximab 100 mg intravenous 100 mg IV .Q7W crohns 05/24/23 09/04/23 History solution (Remicade) guaifenesin 1,200 mg tablet, 1,200 mg PO BID PRN 11/19/23 Unknown History extended release 12 hr (Mucus Relief ER) calcium carbonate (Calcium 600) 600 mg PO DAILY 12/11/23 Unknown History esomeprazole magnesium 20 mg 20 mg PO DAILY 12/11/23 Unknown History capsule,delayed release (Nexium) loratadine 10 mg tablet (Allergy 10 mg PO DAILY 12/11/23 Unknown History Relief (loratadine)) multivitamin 1 tab PO DAILY 12/11/23 Unknown History furosemide 40 mg tablet 40 mg PO DAILY 04/06/24 Unknown History minoxidil 2.5 mg tablet 2.5 mg PO BID 04/06/24 Unknown History semaglutide 0.25 mg or 0.5 mg (2 0.25 mg subcut QWEEK 04/06/24 Unknown History mg/3 mL) subcutaneous pen injector (Ozempic) levothyroxine 25 mcg tablet 25 mcg PO QDAY #30 tabs 06/26/24 Unknown Rx linaclotide 145 mcg capsule 145 mcg PO QDAY 06/26/24 Unknown History (Linzess) rosuvastatin 20 mg tablet 20 mg PO DAILY for cholesterol #90 07/29/24 Unknown Rx TABLETS doxazosin 4 mg tablet See Rx Instructions .Route 08/31/24 Unknown Rx .COMPLEX #180 TABLETS montelukast 10 mg tablet 10 mg PO QPM #90 tabs 12/21/24 Unknown Rx amiodarone 200 mg tablet See Rx Instructions .Route 12/23/24 Unknown Rx .COMPLEX #45 TABLETS potassium chloride 10 mEq See Rx Instructions .Route 12/23/24 Unknown Rx tablet,extended release(part/cryst) .COMPLEX #90 tabs fluticasone furoate 200 1 inh inhalation QDAY #3 ea 01/22/25 Unknown Rx mcg-vilanterol 25 mcg/dose inhalation powder (Breo Ellipta) dapagliflozin propanediol 5 mg 5 mg PO DAILY 02/15/25 Unknown History tablet (Farxiga) losartan 50 mg tablet 50 mg PO DAILY 02/15/25 Unknown History isosorbide mononitrate 60 mg 60 mg PO BID BLOOD PRESSURE #180 05/06/25 Unknown Rx tablet,extended release 24 hr tabs hydralazine 100 mg tablet 100 mg PO TID BLOOD PRESSURE #270 05/17/25 Unknown Rx tabs ascorbic acid (vitamin C) 500 mg 500 mg PO QDAY 05/20/25 Unknown History tablet ferrous sulfate 325 mg (65 mg 325 mg PO QDAY 05/20/25 Unknown History iron) tablet Allergy/AdvReac Type Severity Reaction Status Date / Time aspirin Allergy Severe Mouth Verified 05/29/25 10:29 swelling donepezil (From Aricept) AdvReac Severe Swelling Verified 05/29/25 10:29 morphine AdvReac Severe UNABLE TO Verified 05/29/25 10:29 URINATE Family History Mother Heart disease Diabetes Father Heart disease Lung disease Brother Heart disease Lung disease Cancer prostate, pancreatic Sister Diabetes Cancer uterine Surgical History History of cardiac catheterization History of prostate biopsy History of left heart catheterization (LHC) (~12/22/21) Hx of surgical procedure Hx of colectomy Hx of cystoscopy History of bilateral knee replacement History of back surgery Cervical vertebral fusion History of removal of cyst Social History Smoking Status: Former smoker how long ago did patient quit smokin, 2ppd second hand exposure: Yes alcohol intake: never substance use type: does not use caffeine: Yes Type: coffee Number of servings: 2 ROS ROS ED ROS Narrative Review of systems positive for medial left knee pain worse with flexion and extension of left knee. No other injury. Denies hitting his head, loss of consciousness, neck pain, or other symptoms. Mildly relieved with Tylenol. EXAM Physical Exam Narrative Exam Narrative: GCS 15. ABCs intact. Focused examination of the bilateral knees shows well-healed scars. There is tenderness to palpation of the left medial aspect of the proximal tibia. Flexion and extension mechanism intact. Able to raise leg off bed. Neurovascular intact distally with palpable dorsalis pedis pulse. Const Vital Signs: 05/29/25 10:29 Temperature 97.4 F L Temperature Source Temporal Pulse Rate 71 Respiratory Rate 16 Blood Pressure 132/63 H Blood Pressure Mean 86 Pulse Ox 97 Oxygen Delivery Method Room Air MDM MDM MDM Narrative Medical decision making narrative: Differential diagnosis includes but not limited to knee contusion versus periprosthetic fracture versus other internal derangement of the left knee. I offer the patient a stronger analgesic such as a narcotic but he declined. X-rays were obtained of the left knee and 4 views and interpreted by myself independently. There is the prosthetic but no evidence of periprosthetic fracture. I reviewed the radiology report which confirms my independent interpretation. At this point in time, I feel he can be discharged to follow-up. Return instructions to the emergency department were reviewed. Patient has a walker/rollator that he can use. His states she has plenty of [place] bandages at home. He will take [id number] medications which he prefers. He will follow-up with his primary care provider in 7 to 10 days if not improving. Return instructions to the emergency department were reviewed. Disposition is discharged home in stable condition. History & Record Review Discussion w/independent historian: Patient and Family () Radiography Diagnostic Testing: Clinical Impression(s) from Imaging Studies Knee X-Ray 05/29/25 11:41 IMPRESSION: No acute findings. Reading Location: [facility] Discharge Plan Triage Chief Complaint: Lower Extremity Injury ED Provider: Marck Bergman Dx/Rx/DC Orders Clinical Impression: Strain of left knee and leg, Left knee sprain, Contusion of left knee and lower leg Instructions: ED Contusion, Lower Extremity, ED Knee Sprain, ED Muscle Strain, Extremity Prescriptions: No Action duloxetine [Cymbalta] 60 mg capsule,delayed release(DR/EC) 60 mg PO DAILY gabapentin 600 mg tablet 300 mg PO BID guaifenesin [Mucus Relief ER] 1,200 mg tablet extended release 12hr 1,200 mg PO BID PRN furosemide 40 mg tablet 40 mg PO DAILY minoxidil 2.5 mg tablet 2.5 mg PO BID Ozempic 0.25 mg or 0.5 mg (2 mg/3 mL) pen injector 0.25 mg subcut QWEEK Rx Instructions: for 4 weeks multivitamin Tablet 1 tab PO DAILY calcium carbonate [Calcium 600] 600 mg calcium (1,500 mg) tablet 600 mg PO DAILY loratadine [Allergy Relief (loratadine)] 10 mg tablet 10 mg PO DAILY esomeprazole magnesium [Nexium] 20 mg capsule,delayed release(DR/EC) 20 mg PO DAILY Linzess 145 mcg capsule 145 mcg PO QDAY levothyroxine 25 mcg tablet 25 mcg PO QDAY Qty: 30 2RF ascorbic acid (vitamin C) 500 mg tablet 500 mg PO QDAY ferrous sulfate 325 mg (65 mg iron) tablet 325 mg PO QDAY buspirone 7.5 mg tablet 7.5 mg PO BID Patient Comments: PT IS NOT SURE OF THE DOSAGE latanoprost 0.005 % Drops 1 drp LEFT EYE QPM carvedilol 25 mg tablet 25 mg PO BID Patient Comments: PT IS NOT SURE OF THE DOSAGE timolol maleate 0.5 % drops 1 drp LEFT EYE DAILY infliximab [Remicade] 100 mg recon soln 100 mg IV .Q7W Patient Comments: INFUSE 10MG/KG IV EVERY 7 WEEKS. DUE ON Saturday09/06/23 losartan 50 mg tablet 50 mg PO DAILY dapagliflozin propanediol [Farxiga] 5 mg tablet 5 mg PO DAILY rosuvastatin 20 mg tablet 20 mg PO DAILY Qty: 90 3RF doxazosin 4 mg tablet See Rx Instructions .ROUTE .COMPLEX Qty: 180 3RF Dose Instruction: Take 1 tablet by mouth twice daily Rx Instructions: Take 1 tablet by mouth twice daily montelukast 10 mg tablet 10 mg PO QPM Qty: 90 3RF potassium chloride 10 mEq tablet,ER particles/crystals See Rx Instructions .ROUTE .COMPLEX Qty: 90 3RF Dose Instruction: TAKE 1 TABLET BY MOUTH ONCE DAILY NEEDED FOR SUPPLEMENT Rx Instructions: TAKE 1 TABLET BY MOUTH ONCE DAILY NEEDED FOR SUPPLEMENT amiodarone 200 mg tablet See Rx Instructions .ROUTE .COMPLEX Qty: 45 3RF Dose Instruction: Take 1/2 (one-half) tablet by mouth once daily Patient Comments: PT IS NOT SURE OF THE DOSAGE Rx Instructions: Take 1/2 (one-half) tablet by mouth once daily fluticasone furoate-vilanterol [Breo Ellipta] 200-25 mcg/dose blister with device 1 inh inhalation QDAY Qty: 3 3RF Rx Instructions: after inhalation, rinse mouth with water and spit out; do not swallow isosorbide mononitrate 60 mg tablet extended release 24 hr 60 mg PO BID Qty: 180 3RF hydralazine 100 mg tablet 100 mg PO TID Qty: 270 3RF Primary Care Provider: Jayme Yang Referrals: Jayme Yang MD [Primary Care Provider] - 1 Week if not improving Activity Restrictions/Additional Instructions: Continue to use your [place] bandages as needed for support. Tylenol as directed for pain. Follow-up with your primary care provider if no improvement in the next 1 week to 10 days. Return with new or worsening symptoms. Print Language: [place] Disposition Disposition: Home, Self Care
--- NOTE | 2025-05-29 11:59 | CM.ED ---
Social Work Date of referral: 05/29/2025 Reason for referral: Advanced Care Directives (ACD's) not on file. Referred by: Social Work Identification Patient provided consent to Social Work visit. [employer] Project Manager requested patient to bring in copy of ACD's which patient was agreeable to. Rebeca Ross, CURTAIN STITCHER, GI TECH
--- OUTSIDE RECORDS SUMMARY | 2025-05-29 12:00 | XMS RPT_ITS | CCD ---
Author Organization [facility]ini[facility] Care Team Providers Care Market Analysis Director Name Role Phone Anabelle Mead Unavailable Asuncion [...] Dr. Makenna Naqvi Other Provider Dr. Makenna aNqvi Attending Provider Dr. Jayme Yang Primary Care Provider Trey, Dr. Delacruz Referring Provider Dr. Jayme Lino Attending Provider Andres [employer], [employer] TEACHER-C Emerald Attending Provider Trey, Dr. Delacruz Primary Care Provider Trey, Dr. Delacruz Referring Provider Trey, Dr. Delacruz Primary Care Provider Yang, Dr. Delacruz Referring Provider Scott [employer] TE[employer]ER, [employer]UC[employer] TEACHER-C Dyan Attending Provider Trey, Dr. Delacruz Primary Care Provider Trey, Dr. Delacruz Referring Provider Scott [employer] TE[employer]ER, [employer]UC[employer] TEACHER-C Dyan Attending Provider Dr. Aquiles Modi Referring Provider Dr. Aquiles Modi Other Provider Dr. Newton Arroyo Attending Provider Yang, Dr. Delacruz Primary Care Provider Trey, Dr. Delacruz Referring Provider Scott [employer] TE[employer]ER, [employer]UC[employer] TEACHER-C Dyan Attending Provider Rian, Dr. Kwan Referring Provider Rian, Dr. Kwan Other Provider Dr. Newton Arroyo Attending Provider Dr. Jayme Yang Primary Care Provider Trey, Dr. Delacruz Referring Provider Dr. Aquiles Modi Attending Provider Scott [employer] TE[employer]ER, [employer]UCATION TEACHER-C Dyan Attending Provider Dr. Iker Stratton Emergency Provider Dr. Nela Bellamy Attending Provider Dr. Nela Bellamy Admit Provider Dr. Nela Bellamy Other Provider Dr. Boris Bojorquez Attending Provider Dr. Boris Bojorquez Other Provider Dr. Jayme Yang Primary Care Provider Dr. Jayme Yang Referring Provider Dr. Aquiles Modi Attending Provider Scott [employer] TEACHER, [employer]UCATION TEACHER-C Dyan Attending Provider Dr. Iker Stratton Emergency [...] Provider Dr. Jayme Yang Referring Provider Andres [employer]UC[employer] TEACHER, [employer]UCATION TEACHER-C Emerald Attending Provider Dr. James Sullivan Emergency Provider Dr. Pedro Ferreiar Attending Provider Dr. Pedro Ferreira Admit Provider Dr. Pedro Ferreira Other Provider Dr. Boris Bojorquez Attending Provider Dr. Boris Bojorquez Other Provider Dr. Aquiles Modi Attending Provider Scott [employer]UC[employer] TEACHER, [employer]UCATION TEACHER-C Dyan Attending Provider Dr. Jayme Yang Primary Care Provider Trey, Dr. Delacruz Referring Provider Andres MILLER, [employer] TEACHER-C Emerald Attending Provider [phone] Dr. Jayme Yang Primary Care Provider Trey, Dr. Delacruz Referring Provider Dr. Aquiles Modi Attending Provider Scott MILLER, [employer]UC[employer] TEACHER-C Dyan Attending Provider Dr. Keo Montemayor Attending Provider [phone] Surinder Larson Referring Provider [phone] Dr. Mauricio Soto Emergency Provider Dr. Laureano [...] Provider Dr. Surinder Larson Referring Provider Dr. Aquilse Modi Attending Provider Dr. Keo Montemayro Referring Provider Dr. Mauricio Soto Emergency Provider Dr. Laureano Lucero Admit Provider Unavailabl e Lucero, Dr. Tinsley Other Provider Unavailabl e Clarence, Dr. Tinsley Attending Provider Unavailable Kitsarabjit, Dr. Tinsley Other Provider Unavailable Dr. Jayme Ynag Primary Care Provider Dr. Jayme Yang Referring [...] Provider Dr. Nabil Marie Other Provider Roof [employer] TEACHER, [employer]UC[employer] TEACHER-C Teja Waters Other Provider Scott [employer] TEACHER, [employer]UCATION TEACHER-C Dyan Other Provider Michelle PA, PA Fyae Beckham Other Provider Dr. Js Lee Other [...] Provider Dr. Nabil Marie Other Provider Roof [employer]UC[employer] TEACHER, [employer]UCATION TEACHER-C Teja Waters Other Provider Scott [employer]UCATION TEACHER, [employer]UCATION TEACHER-C Dyan Other Provider Michelle PA, PA Faye Beckham Other Provider Dr. Js Lee Other Provider Dr. Clifford Cordero Attending Provider Dr. Js Lee Attending Provider Dr. Jayme Yang Referring Provider Andres [employer] TEACHER, [employer]UCATION TEACHER-C Emerald Attending Provider Dr. Jayme Yang Primary Care Provider Dr. Keo Montemayor Attending Provider Dr. Keo Montemayor Referring Provider Lucero Dr. Tinsley Admit Provider Unavailabl e Lucero, Dr. Tinsley Other Provider Unavailabl e Trey LAUGHLIN, Dr. Delacruz Primary Care Provider Farshad LAUGHLIN, Dr. Joel Attending Provider Farshad LAUGHLIN, Dr. Joel Referring Provider [facility], Dr. Crowley Attending Provider [facility], Dr. Crowley Referring Provider Trey LAUGHLIN, Dr. Delacruz Attending Provider Trey LAUGHLIN, Dr. Delacruz Referring Provider Campos [employer] TEACHER-C, Emerald Attending Provider Roof [employer]UCATION TEACHER-C, Teaj H Attending Provider Roof [employer]UCATION TEACHER-C, Teja H Referring Provider Roof [employer]UCATION TEACHER-C, Teja H Other Provider Gil LAUGHLIN, Dr. Horton Attending Provider Marsha LAUGHLIN, Dr. Surinder Rivera Attending Provider [phone] Marsha LAUGHLIN, Dr. Surinder Rivera Referring Provider Trey LAUGHLIN, Dr. Delacruz Primary Care Provider [facility], Dr. Crowley Attending Provider [facility], Dr. Crowley Referring Provider Trey LAUGHLIN, Dr. Delacruz Attending Provider Trey LAUGHLIN, Dr. Delacruz Referring Provider Campos [employer] TEACHER-C, Emreald Attending Provider Roof [employer]UCATION TEACHER-C, Teja H Attending Provider Roof [employer]UCATION TEACHER-C, Teja H Referring Provider Roof [employer] EDUCATION TEACHER-C, Teja H Other Provider Gil LAUGHLIN, Dr. [...] LAUGHLIN, Dr. Delacruz Primary Care Provider [phone] Trey LAUGHLIN, Dr. Delacruz Referring Provider John LAUGHLIN, Dr. Castillo Attending Provider Farshad LAUGHLIN, Dr. Joel Attending Provider Farshad LAUGHLIN, Dr. Joel Referring Provider Trey LAUGHLIN, Dr. Delacruz Primary Care Provider Li MILLER-C, Teja Waters Attending Provider Albina HEDRICK, Dr. Crowley Attending Provider [phone] Albina HEDRICK, Dr. Crowley Referring Provider [phone] Trey LAUGHLIN, Dr. Delacruz Primary Care Provider Trey LAUGHLIN, Dr. Delacruz Referring Provider Andres [employer] TEACHER-C, Emerald Attending Provider Trey, Jayme Referring Unavailable Yang, Jayme Attending Unavailable Trey, Jayme Primary Care Unavailable Yang, Jayme Referring Unavailable Emerald Campos NP Attending Unavailable Yang, Jayme Primary Care Unavailable Keo Montemayor Attending Unavailable Yang, Jayme Primary Care Unavailable Yang, Jayme Primary Care Unavailable Helen, Leander Referring Unavailable Leander Cervantes Attending Unavailable Keo Montemayor Referring Unavailable Keo Montemayor Attending Unavailable Yang, Jayme Primary Care Unavailable Yang, Jayme Primary Care Unavailable Marycruz Yen Referring Unavailable Marycruz Yen Attending Unavailable Yang, Jayme Primary Care Unavailable Josesito, Juany Referring Unavailable Josesito, Juany Attending Unavailable Albina, Keo Referring Unavailable Keo Montemayor Attending Unavailable Yang, Jayme Primary Care Unavailable Yang, Jayme Primary Care Unavailable Yang, Jayme Referring Unavailable Roof [employer] TEACHER, Teja Waters Attending Unavailable Yang, Jayme Referring Unavailable Suzie Ashton Attending Unavailable Yang, Jayme Primary Care Unavailable Marycruz Yen Referring Unavailable Marycruz Yen Attending Unavailable Yang, Jayme Primary Care Unavailable Yang, Jayme Primary Care Unavailable Yang, Jayme Referring Unavailable Yang, Jayme Attending Unavailable Yang, Jayme Referring Unavailable Evin Sesay Attending Unavailable Yang, Jayme Primary Care Unavailable Yang, Jayme Referring Unavailable Campos [employer] TEACHER, Emerald Attending Unavailable Yang, Jayme Primary Care Unavailable Yang, Jayme Primary Care Unavailable Clifford Cordero Attending Unavailadriel Jefferson [employer]UC[employer] TEACHER, Teja Waters Referring Unavailable Roof [employer]UC[employer] TEACHER, Teja Waters Consulting Unavailable Yang, Jayme Primary Care Unavailable Yang, Jayme Referring Unavailable Campos [employer]UCATION TEACHER, Emerald Attending Unavailable Keo Montemayor Attending Unavailable Yang, Jayme Primary Care Unavailable Jonathan Lopez Attending Unavailable Yang, Jayme Primary Care Unavailable Juany Bellamy Referring Unavailable Josesito, Juany Attending Unavailable Yang, Jayme Primary Care Unavailable Charlotte, Usha Referring Unavailable Charlotte, Usha Attending Unavailable Yang, Jayme Primary Care Unavailable Yang, Jayme Primary Care Unavailable Roof [employer]UC[employer] TEACHER, Teja Waters Referring Unavailable Roof [employer]UC[employer] TEACHER, Teja Waters Attending Unavailable Surinder Larson Attending Unavailable Yang, Jayme Primary Care Unavailable Surinder Larson Referring Unavailable Allergies Allergy Classification Reported Allergen(s) Allergy Type Date of Onset Reaction(s) Facility (20 sources) aspirin; Translations: [aspirin] drug allergy 7 Mouth Swelling [facility] Work Phone: (6 sources) morphine drug allergy 7 GI Problems [facility] Work Phone: (20 sources) donepezil Drug Allergy 2 Swelling [facility] (20 sources) Minoxidil Drug Allergy 2 swelling [facility] (20 sources) Morphine Drug Allergy 2 UNABLE TO URINATE [facility] (1 source) Seasonal Allergies: Uncoded Allergy to substance 3 Other [facility] (1 source) donepezil Drug Allergy 5 [facility] Repository (1 source) Morphine Drug Allergy 5 [facility] Repository Medications Current Medications Medication Drug [...] by mouth every 4 hours if needed ascorbic acid 500 mg oral tablet (1 source) Vitamin C Start: 05-20-2025 Wggkkughlb-Biyimcvu-Je rmoterol (7 sources) Corticosteroid, beta2-Adrenergic Agonist Start: 01-26-2022 Budesonide-Glycopyr- For moterol (Breztri Aerosphere) 160-9-4.8 mcg/actuation HFA aerosol inhaler [...] meal/food 0800/1700 Start: 05-25-2020 End: 02-20-2022 take [id number] tablet by mouth twice daily at mealtime Carvedilol 25 mg tablet Discontinued 25 mg PO TWICE A DAY 180 May 02, 2021 4:28pm January 26, 2022 10:10am must administer with a meal/food 0800/1700 Start: 05-25-2020 End: 02-20-2022 Start: 04-07-2020 End: 04-13-2020 dapagliflozin 5 mg oral tabl et (5 sources) Sodium-Glucose Cotransporter 2 Inhibitor Start: 02-15-2025 DULoxetine 60 mg delayed release oral capsule (20 sources) Serotonin and Norepinephrine Reuptake Inhibitor Start: 09-17-2018 End: 06-02-2019 Start: 12-12-2016 take 1 tablet by iraida th once daily CYMBALTA 60 MG CPEP One tablet by mouth daily DULOXETINE HCL [id number] Faye Monsalve RN esomeprazole 20 mg delayed r elease oral capsule (20 sources) Proton Pump Inhibitor Start: 12-11-2023 Start: 10-02-2022 End: 09-20-2023 Start: 12-21-2021 End: 09-06-2022 Start: 12-12-2016 take 1 tablet by iraida th once daily NEXIUM 20 MG CPDR One tablet by mouth daily ESOMEPRAZOLE MAGNESIUM [id number] Jayme Lino MD Start: 12-12-2016 take 1 tablet by iraida th once daily NEXIUM 20 MG CPDR One tablet by mouth daily ESOMEPRAZOLE MAGNESIUM [id number] Jayme Lino MD furosemide 40 mg oral [...] 19, 2023 9:54am Start: 09-25-2018 End: 05-28-2019 hydrALAZINE hydrochloride 100 mg oral tablet (20 sources) Arteriolar Vasodilator Start: 04-24-2022 End: 04-24-2022 take 1 tablet by mouth once Hydralazine 100 mg tablet Discontinued 100 mg PO ONCE April 24, 2022 1:53pm April 24, 2022 2:06pm Start: 12-03-2019 End: 05-17-2025 Start: 12-03-2019 End: 10-04-2022 take 1 tablet [...] 11-20-2019 End: 12-03-2019 Start: 11-04-2019 End: 11-20-2019 Infliximab (Remicade) 100 mg recon soln (20 [...] MG IV Q7D March 21, 2023 12:00am 24 hr isosorbide mononitrate 60 mg extended release oral tablet (20 sources) Nitrate Vasodilator Start: 02-11-2020 End: 05-06-2025 Start: 02-11-2020 End: 05-25-2020 take 1 tablet [...] On Hold: med changes may consider resuming latanoprost 0.05 mg/ml ophth almic solution (20 sources) Prostaglandin Analog Start: 12-22-2021 levothyroxine sodium 0.025 m g oral tablet (8 sources) l-Thyroxine Start: 06-26-2024 linaclotide 0.145 mg oral ca psule (8 sources) Guanylate Cyclase-C Agonist Start: 06-26-2024 loratadine [...] Take 1 tablet by mouth once daily Rzfhgawh-Fvc-Cg-Lycopen-Lute in (10 sources) Start: 09-17-2018 Jaymudzf-Dfo-Mi-Lycopen-Lute in Active 1 EACH PO DAILY September 17, 2018 10:18pm Start: 09-17-2018 Gbgpjwss-Dln-O m-Zxrlyrc-Rwtyjd Active 1 EACH PO DAILY September 17, 2018 12:00am Start: 09-17-2018 Dpycsifv-Shi-M u-Imgfmdx-Zmvhoj Active 1 EACH PO DAILY September 17, 2018 1:00am Byesamvg-Crq-Um-Lycopen-Lute in (Centrum Silver Men) 1 EACH tablet (4 sources) Start: 09-17-2018 take 1 tablet by mouth once daily Skpmxpea-Wdy-Av-Lycopen-Lutein (Centrum Silver Men) 1 EACH tablet Active 1 EACH PO DAILY September 17, 2018 1:00am Start: 09-17-2018 take 1 tablet by iraida th once daily Hmwloqio-Qep-Lk-Lycopen-Lutein (Centrum Silver Men) 1 EACH tablet Active 1 EACH PO DAILY September 17, 2018 12:00am Multivitamin tablet (1 source) Start: 12-11-2023 Multivitamin t ablet Active 1 {tbl} PO DAILY December 11, 2023 12:00am [place]-3 Fatty Acids (Fish Oil Concentrate) 1,000 mg Capsule (1 source) Start: 10-04-2022 take 1 capsule by mouth twice daily [place]-3 Fatty Acids (Fish Oil Concentrate) 1,000 mg Capsule Active 1000 MG PO TWICE A DAY October 04, 2022 12:00am [place]-3 Fatty Acids-Vitamin E (11 sources) Start: 03-22-2023 take 1 capsule by mouth once daily [place]-3 Fatty Acids-Vitamin E Active 1 CAP PO DAILY March 21, 2023 11:00pm Start: 03-22-2023 take 1 capsule by mo [facility] twice daily [place]-3 Fatty Acids-Vitamin E Active 1 CAP PO TWICE A DAY March 21, 2023 11:00pm Start: 03-22-2023 [place]-3 Fatty Acids-Vitamin E Active CAP PO March 22, 2023 12:00am Semaglutide (8 sources) Start: 04-06-2024 Semaglutide (O zempic) 0.25 [...] LEFT EYE DAILY December 21, 2021 11:00pm (20 sources) Start: 05-20-2025 Start: 11-17-2024 End: 11-27-2024 Start: 12-11-2023 Start: 11-19-2023 Start: 09-05-2023 End: 11-19-2023 Start: 09-05-2023 Start: 05-24-2023 Start: 03-22-2023 End: 09-20-2023 Start: 03-21-2023 End: 05-24-2023 Start: 10-04-2022 End: 04-04-2023 Start: 10-04-2022 Start: 08-09-2021 End: 12-13-2021 Start: 08-07-2021 End: 08-07-2021 Start: 09-17-2018 End: 09-20-2023 Start: 09-17-2018 Start: 09-17-2018 End: 10-23-2018 Completed/Discontinued Medications Medication Drug Class(es) Dates Sig [...] tablet by mouth daily AMLODIPINE BESY-BENAZEPRIL HCL [id number] Faye Monsalve RN Start: 07-20-2013 End: 09-25-2018 [...] TABS One tablet by mouth daily ATENOLOL [id number] Jayme Lino MD azithromycin 250 mg oral tablet (5 sources) Macrolide Antimicrobial Start: 02-15-2025 End: 04-06-2025 balsalazide disodium 750 mg oral capsule (20 sources) Aminosalicylate Start: 09-17-2018 End: 02-08-2021 Start: 12-12-2016 take 3 tablets by mo [facility] twice daily BALSALAZIDE DISODIUM 750 MG CAPS Three tablets by mouth twice a day BALSALAZIDE DISODIUM [id number] Faye Monsalve RN benzonatate 100 mg oral [...] 09-20-2023 Start: 12-21-2021 take 1 tablet by [facility] once daily Calcium Carbonate-Vitamin D3 Active [...] One tablet by mouth daily CETIRIZINE HCL [id number] Jayme Lino MD chlorthalidone 50 mg oral [...] 4 % SOLN as needed CROMOLYN SODIUM [id number] Faye Monsalve RN cyclobenzaprine hydrochloride 5 mg oral tablet (12 sources) Muscle Relaxant Start: 12-12-2016 End: 12-13-2016 take 1 tablet by mouth once daily at bedtime CYCLOBENZAPRINE HCL 5 MG TABS One tablet by mouth daily @ bedtime CYCLOBENZAPRINE HCL [id number] Jayme Lino MD dexamethasone 6 mg oral tablet (17 sources) Corticosteroid Start: 09-05-2023 End: 09-20-2023 24 hr dilTIAZem hydrochloride 360 mg extended release oral capsule (20 sources) Calcium Channel Andrey Start: 06-06-2020 End: 02-08-2021 Start: 04-18-2020 End: 04-18-2020 Start: 10-06-2019 End: 04-07-2020 Start: 06-02-2019 End: 10-06-2019 Start: 10-23-2018 End: 05-28-2019 Start: 09-25-2018 End: 10-23-2018 diphenhydrAMINE hydrochloride 25 mg oral capsule (20 sources) Histamine-1 Receptor Antagonist Start: 06-24-2019 End: 09-26-2021 [place] 6-Jsl-Zur-Fish Oil (10 sources) Start: 12-11-2023 End: 06-26-2024 [place] 2-Edz-Xah-Fish Oil (Fish Oil) 300-1,000 mg capsule Discontinued [...] mouth twice daily OMEGA-3 FATTY ACIDS CAPS [id number] Faye Monsalve RN 30 actuat fluticasone furoate [...] 09-25-2018 End: 05-28-2019 Start: 09-25-2018 End: 05-28-2019 hydroCHLOROthiazide 25 mg or al tablet (20 sources) Thiazide Diuretic Start: 07-04-2022 End: 10-05-2022 Start: 02-08-2020 End: 03-28-2020 Start: 06-17-2019 End: 12-24-2019 Start: 12-12-2016 End: 12-13-2016 take 1 tablet by mouth once daily HYDROCHLOROTHIAZIDE 25 MG TABS One tablet by mouth daily HYDROCHLOROTHIAZIDE [id number] Jayme Lino MD inFLIXimab 100 mg injection (6 sources) Tumor Necrosis Factor Andrey Start: 12-12-2016 take 100 mg intravenous route every two months REMICADE 100 MG SOLR IV every 2 months INFLIXIMAB [id number] Faye Monsalve RN ipratropium bromide 0.021 mg/actuat metered dose nasal spray (20 sources) Anticholinergic Start: 05-21-2023 End: 09-04-2023 Start: 05-21-2023 End: 09-04-2023 Ipratropium [place] 21 mcg ( 0.03 %) spray,non-aerosol Discontinued 2 NMA INTRANASAL TWICE A DAY May 21, 2023 12:00am September 04, 2023 2:52am administer into each nostril Start: 05-21-2023 End: 09-04-2023 take 1 spray(s) nasal route twice daily Ipratropium Liberty Discontinued 2 SPRAY INTRANASAL TWICE A DAY May 20, 2023 11:00pm September 04, 2023 1:52am administer into each nostril Start: 01-26-2022 Ipratropium Br omide Active 2 SPRAY INTRANASAL THREE TIMES A DAY January 25, 2022 11:00pm levoFLOXacin 750 mg oral tab let (20 [...] tablet by mouth twice daily METFORMIN HCL [id number] Faye Monsalve RN metoclopramide 10 mg oral ta blet (20 sources) Dopamine-2 Receptor Antagonist Start: 06-24-2019 End: 10-06-2019 metoprolol tartrate 50 mg or al tablet (20 sources) beta-Adrenergic Andrey Start: 05-28-2019 End: 06-02-2019 Start: 01-22-2018 End: 09-25-2018 Start: 03-22-2017 METOPROLOL TAR TRATE 50 MG TABS One pill twice a day METOPROLOL TARTRATE [id number] Teja Jefferson NP montelukast 10 mg oral tablet (20 sources) Leukotriene Receptor Antagonist Start: 04-04-2023 End: 12-21-2024 MULTIPLE VITAMINS-MINERALS (4 sources) Start: 12-12-2016 take 1 tablet by mouth once daily SENTRY SENIOR TABS One tablet by mouth daily MULTIPLE VITAMINS-MINERALS [id number] Faye Monsalve RN MULTIPLE VITAMINS-MINERALS (2 sources) Start: 12-12-2016 take 1 tablet by mouth once daily SENTRY SENIOR TABS One tablet by mouth daily MULTIPLE VITAMINS-MINERALS [id number] Faye Monsalve RN Tl-Xjv-Wgwhe-K1-Ly copen-Lutein (Centrum Silver Men) 1 EACH tablet (12 sources) Start: 09-17-2018 End: 09-20-2023 take 1 tablet by mouth once daily Zx-Oty-Uaxvl-K1-Lyc open-Lutein (Centrum Silver Men) 1 EACH tablet Discontinued 1 NMA PO DAILY September 17, 2018 1:00am September 20, 2023 3:57pm Start: 09-17-2018 take 1 tablet by iraida th once daily Wk-Ehf-Gcngb-N4-Dggayle-Tbdfdk (Centrum Silver Men) 1 EACH tablet Active 1 EACH PO DAILY September 17, 2018 12:00am Start: 09-17-2018 take 1 tablet by iraida th once daily Lc-Qjc-Kvkou-R9-Kbnjzvr-Ishfyq (Centrum Silver Men) 1 EACH tablet Active 1 EACH PO DAILY September 17, 2018 1:00am nebivolol 10 mg oral tablet (8 sources) Start: 12-12-2016 End: 03-22-2017 take 1 tablet by mouth once daily BYSTOLIC 10 MG TABS One tablet by mouth daily NEBIVOLOL HCL [id number] Teja Jefferson [employer]ER nystatin 446467 unt/ml oral suspension (8 sources) Polyene Antifungal Start: 11-17-2024 End: 05-20-2025 Start: 11-17-2024 Nystatin 100,0 00 unit/mL suspension Active 5 mL MUCOUS MEM THREE TIMES A DAY November 17, 2024 1:00am swish and swallow 5 cc three times per day for 10 days [place]-3 Fatty Acids (20 sources) Start: 10-04-2022 End: 04-04-2023 take 1000 mg by mouth twice daily [place]-3 Fatty Acids Discontinued 1000 MG PO TWICE A DAY October 04, 2022 12:00am April 04, 2023 7:12am Start: 10-04-2022 End: 04-04-2023 take 1000 mg by mouth twice daily [place]-3 Fatty Acids Discontinued 1000 MG PO TWICE A DAY October 04, 2022 1:00am April 04, 2023 8:12am Start: 10-04-2022 take 1000 mg by mout h twice daily [place]-3 Fatty Acids Active 1000 MG PO TWICE A DAY October 04, 2022 1:00am Start: 10-04-2022 take 1000 mg by mout h twice daily [place]-3 Fatty Acids Active 1000 MG PO TWICE A DAY October 04, 2022 12:00am Start: 12-13-2021 take 1000 mg by mout h twice daily [place]-3 Fatty Acids Active 1000 MG PO TWICE A DAY December 13, 2021 9:13am Start: 12-13-2021 take 1000 mg by mout h twice daily [place]-3 Fatty Acids Active 1000 MG PO TWICE A DAY December 13, 2021 10:13am Start: 08-09-2021 End: 12-13-2021 take 1000 mg by mouth once daily [place]-3 Fatty Acids Discontinued 1000 MG PO DAILY August 09, 2021 1:34pm December 13, 2021 10:14am Start: 08-09-2021 End: 12-13-2021 take 1000 mg by mouth once daily [place]-3 Fatty Acids Discontinued 1000 MG PO DAILY August 09, 2021 12:00am December 13, 2021 9:14am Start: 08-09-2021 End: 12-13-2021 take 1000 mg by mouth once daily [place]-3 Fatty Acids Discontinued 1000 MG PO DAILY August 09, 2021 1:00am December 13, 2021 10:14am [place]-3 Fatty Acids 1,000 mg Capsule (1 source) Start: 10-04-2022 End: 04-04-2023 take 1 capsule by mouth twice daily [place]-3 Fatty Acids 1,000 mg Capsule Discontinued 1000 mg PO TWICE A DAY October 04, 2022 1:00am April 04, 2023 8:12am [place]-3 Fatty Acids Capsule (1 source) Start: 08-09-2021 End: 12-13-2021 take 1 capsule by mouth once daily [place]-3 Fatty Acids Capsule Discontinued 1000 mg PO DAILY August 09, 2021 1:00am December 13, 2021 10:14am [place]-3 Fatty Acids-Fish Oil (20 sources) Start: 09-17-2018 End: 10-23-2018 take 1000 mg by mouth once daily [place]-3 Fatty Acids-Fish Oil Discontinued 1000 MG PO DAILY September 17, 2018 10:18pm October 23, 2018 12:40pm Start: 09-17-2018 End: 10-23-2018 take 1000 mg by mouth once daily [place]-3 Fatty Acids-Fish Oil Discontinued 1000 MG PO DAILY September 17, 2018 12:00am October 23, 2018 11:40am Start: 09-17-2018 End: 10-23-2018 take 1000 mg by mouth once daily [place]-3 Fatty Acids-Fish Oil Discontinued 1000 MG PO DAILY September 17, 2018 1:00am October 23, 2018 12:40pm [place]-3 Fatty Acids-Fish Oil 1 EACH capsule (1 source) Start: 09-17-2018 End: 10-23-2018 take 1 capsule by mouth once daily [place]-3 Fatty Acids-Fish Oil 1 EACH capsule Discontinued 1000 mg PO DAILY September 17, 2018 1:00am October 23, 2018 12:40pm [place]-3 Fatty Acids-Vitamin E 1,000 mg Capsule (1 source) Start: 03-22-2023 End: 09-20-2023 [place]-3 Fatty Acids-Vitamin E 1,000 mg Capsule Discontinued 1 NMA PO DAILY March 22, 2023 12:00am September 20, 2023 3:57pm omeprazole 20 mg delayed release oral capsule (6 sources) Proton Pump Inhibitor Start: 12-12-2016 take 1 tablet by mouth once daily OMEPRAZOLE 20 MG CPDR One tablet by mouth daily OMEPRAZOLE [id number] Faye Monsalve RN 24 hr oxybutynin chloride 10 mg extended release oral tablet (20 sources) Cholinergic Muscarinic Antagonist Start: 10-04-2022 End: 04-06-2025 Start: 10-04-2022 take 10 mg by mouth every other day Oxybutynin Chloride Active 10 MG PO EVERY OTHER DAY October 04, 2022 12:00am Start: 01-26-2022 take 10 mg by mouth once daily Oxybutynin Chloride Active 10 MG PO DAILY January 25, 2022 11:00pm phenazopyridine hydrochloride 100 mg oral tablet (12 sources) Start: 11-08-2023 End: 12-11-2023 polyethylene glycol [id number] mg powder for oral solution (10 sources) Osmotic Laxative Start: 11-19-2023 End: 06-26-2024 [...] One half tablet by mouth daily SIMVASTATIN [id number] Jayme Lino MD spacer (20 sources) Start: 08-07-2021 End: 08-07-2021 spacer Discontinued 0 .ROUTE .MEDSUPPLY 1 August 07, 2021 11:48am August 07, 2021 [...] 0.05 5 mg/actuat metered dose nasal spray (20 sources) Corticosteroid Start: 05-21-2023 End: 09-20-2023 Start: [...] 20, 2023 11:00pm administer into each nostril Problems Active Problems Problem Classification Problem Date Documented Date Episodic/Chronic Acute bronchitis (20 sources) Acute bronchitis with bronchospasm; Translations: [Acute bronchitis, unspecified] 12-28-2021 Episodic Acute myocardial infarction (14 sources) Myocardial infarction; Translations: [Non-ST elevation (NSTEMI) myocardial infarction] 11-12-2023 Chronic Asthma (20 sources) Asthma; Translations: [Unspecified asthma, uncomplicated] Chronic Calculus of urinary tract (20 sources) Kidney stone; Translations: [Calculus of kidney] 12-28-2021 Episodic Cancer of prostate (20 sources) Primary malignant neoplasm of prostate; Translations: [Malignant neoplasm of prostate] Onset: 04-07-2025 07-02-2023 Chronic Cardiac dysrhythmias (20 sources) Conduction disorder of the heart; Translations: [Paroxysmal atrial fibrillation] Onset: 12-13-2016 12-13-2016 Chronic Chronic obstructive pulmonary disease and bronchiectasis (5 sources) Bronchitis; Translations: [Bronchitis, not specified as acute or chronic] 02-15-2025 Episodic Conduction disorders (8 sources) Sinoatrial block; 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] Onset: 12-12-2016 12-12-2016 Chronic Coronary atherosclerosis and other heart disease (20 sources) Coronary arteriosclerosis; Translations: [Atherosclerotic heart disease of [place] coronary artery without angina pectoris] Onset: 12-21-2024 [...] Translations: [Essential hypertension] Onset: 12-12-2016 12-12-2016 Chronic Fluid and electrolyte disorders (20 sources) Hypokalemia; Translations: [Hypokalemia] Onset: 12-12-2016 12-12-2016 Episodic Genitourinary symptoms and ill-defined conditions (12 sources) Dysuria; Translations: [Dysuria] 11-11-2023 Episodic Gout [...] sources) Fatigue; Translations: [Other fatigue] Episodic Mycoses (14 sources) Candidiasis of mouth; Translations: [Candidal stomatitis] 11-17-2024 Episodic Nausea and vomiting (16 sources) Nausea and vomiting; Translations: [Nausea with [...] sources) Long-term current use of anticoagulant; 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] 10-04-2022 Episodic Other aftercare (17 sources) [facility] (current) use of anticoagulants; Translations: [Long-term (current) use of anticoagulants] Episodic Other aftercare (15 sources) Drug therapy finding; Translations: [Other [facility] (current) drug therapy] 12-11-2023 Episodic Other and ill-defined heart disease (20 sources) Left ventricular hypertrophy; Translations: [Cardiomegaly] 09-26-2021 Chronic Other and ill-defined heart disease (2 sources) Cardiomegaly; Translations: [Cardiomegaly] Chronic Other circulatory disease (20 sources) Labile hypertension due to being in a clinical environment; Translations: [Elevated blood-pressure reading, without diagnosis of hypertension] 08-07-2022 Episodic Other circulatory disease (15 sources) H/O: atrial fibrillation; Translations: [Personal history of other diseases of the circulatory system] 09-20-2023 Episodic Other circulatory disease (11 sources) Personal history of other diseases of the circulatory system; Translations: [Personal history of other diseases of circulatory system] 09-20-2023 Episodic Other circulatory disease (12 sources) H/O: heart disorder; Translations: [Personal history [...] knee] 10-10-2022 Episodic Other connective tissue disease (20 sources) Prepatellar bursitis of left knee; Translations: [...] pain, unspecified] Episodic Other lower respiratory disease (19 sources) Dyspnea on exertion; Translations: [Other forms of dyspnea] 09-04-2023 Episodic Other lower respiratory disease (19 sources) Respiratory insufficiency; Translations: [Other abnormalities of breathing] 09-04-2023 Episodic Other lower respiratory disease (10 sources) Other abnormalities of breathing; Translations: [Other pulmonary insufficiency, not elsewhere classified] 09-04-2023 Episodic Other lower respiratory disease (10 sources) Other forms of dyspnea; Translations: [Other respiratory abnormalities] 09-04-2023 Episodic Other lower respiratory disease (7 sources) Dyspnea, unspecified; Translations: [Other respiratory abnormalities] 09-20-2023 Episodic Other nervous system disorders (20 sources) [...] Chronic Other nutritional; endocrine; and metabolic disorders (15 sources) H/O: diabetes mellitus; Translations: [Personal history [...] (adult) (pediatric); Translations: [Obstructive sleep apnea (adult)(pediatric)] Chronic Residual codes; unclassified (20 sources) Altered mental status; Translations: [Altered mental status, unspecified] 02-23-2020 Episodic Residual codes; unclassified (20 sources) Other specified health status; Translations: [Failure of outpatient treatment] Episodic Rheumatoid arthritis and related disease (2 [...] [Iron deficiency anemia, unspecified] Onset: 07-15-2024 Episodic Other aftercare (4 sources) Other [facility] (current) drug therapy; Translations: [Long-term (current) use of other medications] Onset: 11-27-2024 12-11-2023 Episodic Other lower respiratory disease (1 source) Shortness of breath; Translations: [Shortness of breath] Onset: 02-18-2025 Episodic Pneumonia (except that caused by tuberculosis [...] around 70% with the mid RCA occluded, [employer] Residual codes; unclassified (5 sources) Other specified postprocedural states; Translations: [Personal history of surgery to heart and great vessels, presenting hazards to health] Onset: 11-28-2021 11-13-2023 Episodic Unclassified (6 sources) Family history of alcoholism; Translations: [Family history of alcohol abuse and dependence] 12-12-2016 Episodic Results Test Name Value Interpretation Reference Range Facility Absolute lymphocyte countOrd ered By: Marycruz Yen on 03-04-2025 Lymphocytes Auto (Unsp spec) [#/Vol] 2.06 10*3/uL 0.83-4.51 [facility] Anion gap in Serum or Plasma Ordered By: Marycruz Yen on 03-04-2025 Anion gap [Moles/Vol] 12 mmol/L 5-15 [facility] Automated lymphocyte count a s percentage of total leukocytesOrdered By: Marycruz Yen on 03-04-2025 Lymphocytes/100 WBC Auto (Unsp spec) 45.2 % High 19-41 [facility] BUN/creatinine ratioOrdered By: Marycruz Yen on 03-04-2025 Urea nitrogen/Creatinine [Mass ratio] 14.0 mg/mg 10-20 [facility] Basophil percentageOrdered B y: Marycruz Yen on 03-04-2025 Basophils/100 WBC (Bld) 0.9 % 0-1 [facility] Bilirubin, totalOrdered By: Marycruz Yen on 03-04-2025 Bilirubin [Mass/Vol] 0.34 mg/dL 0.00-1.30 [facility] Carbon dioxide, total [Moles /volume] in Central venous bloodOrdered By: Marycruz Yen on 03-04-2025 CO2 [Moles/Vol] 25.2 mmol/L 21.0-32.0 [facility] Chloride assayOrdered By: Adry Yen on 03-04-2025 Chloride [Moles/Vol] 105 mmol/L 98-108 [facility] Eosinophil percentageOrdered By: Marycruz Yen on 03-04-2025 Eosinophils/100 WBC (Bld) 2.2 % 0-5 [facility] Erythrocyte distribution wid th ratioOrdered By: Marycruz Yen on 03-04-2025 Erythrocyte distribution width (RBC) [Ratio] 14.7 % High 11.6-14.6 [facility] Erythrocyte distribution wid th standard deviationOrdered By: Marycruz Yen on 03-04-2025 Erythrocyte distribution width (RBC) [Ratio] 49.6 fl High 35.1-43.9 [facility] Glomerular filtration rate ( GFR) estimation/1.73 sq m using serum, plasma, or whole bOrdered By: Marycruz Yen on 03-04-2025 GFR/1.73 sq M.predicted among non-blacks MDRD (S/P/Bld) [Vol rate/Area] 40 mL/min/{1.73_m2} Low >60 [facility] Hematocrit Auto (Bld) [Volum e fraction]Ordered By: Marycruz Yen on 03-04-2025 Hematocrit (Bld) [Volume fraction] 30.7 % Low 40-54 [facility] Hemoglobin measurementOrdere d By: Marycruz Yen on 03-04-2025 Hemoglobin (Bld) [Mass/Vol] 10.0 g/dL Low 13.0-16.5 [facility] Immature granulocytes/100 WB C Auto (Bld)Ordered By: Marycruz Yen on 03-04-2025 Immature granulocytes/100 WBC (Bld) 0.200 % 0.0-0.9 [facility] MCV (mean corpuscular volume ) determinationOrdered By: Marycruz Yen on 03-04-2025 MCV (RBC) [Entitic vol] 93.0 fL 80-94 [facility] Mean corpuscular hemoglobin (MCH) determinationOrdered By: Marycruz Yen on 03-04-2025 MCH (RBC) [Entitic mass] 30.3 pg 27.0-32.0 [facility] Monocyte percentageOrdered B y: Marycruz Yen on 03-04-2025 Monocytes/100 WBC (Bld) 13.2 % High 0-10 [facility] Neutrophil percentageOrdered By: Marycruz Yen on 03-04-2025 Neutrophils/100 WBC (Bld) 38.3 % Low 47-70 [facility] No Panel InformationOrdered By: Marycruz Yen on 03-04-2025 40 U/L High <38 [facility] Platelet countOrdered By: Adry Yen on 03-04-2025 Platelets (Bld) [#/Vol] 197 10*3/uL 150-450 [facility] Potassium measurement (mass/ volume)Ordered By: Marycruz Yen on 03-04-2025 Potassium (Unsp spec) [Mass/Vol] 3.7 mmol/L 3.3-5.1 [facility] RBC Auto (Bld) [#/Vol]Ordere d By: Marycruz Yen on 03-04-2025 RBC (Bld) [#/Vol] 3.30 10*6/uL Low 4.6-6.2 [facility] Serum creatinine measurement (mass/volume)Ordered By: Marycruz Yen on 03-04-2025 Creatinine [Mass/Vol] 1.71 mg/dL High 0.70-1.20 [facility] Serum globulin measurementOr dered By: Marycruz Yen on 03-04-2025 Globulin (S) [Mass/Vol] 3.6 g/dL 2.2-4.2 [facility] Serum glucose measurement (m ass/volume)Ordered By: Marycruz Yen on 03-04-2025 Glucose [Mass/Vol] 94 mg/dL 70-99 [facility] Serum or plasma alanine min otransferase (ALT) measurementOrdered By: Marycruz Yen on 03-04-2025 ALT [Catalytic activity/Vol] 46 U/L <47 [facility] Serum or plasma albumin amanda urement (mass/volume)Ordered By: Marycruz Yen on 03-04-2025 Albumin [Mass/Vol] 3.6 g/dL 3.4-4.8 [facility] Serum or plasma albumin/glob ulin mass ratioOrdered By: Marycruz Yen on 03-04-2025 Albumin/Globulin [Mass ratio] 1.0 {ratio} 0.9-2.4 [facility] Serum or plasma alkaline db sphatase measurementOrdered By: Marycruz Yen on 03-04-2025 ALP [Catalytic activity/Vol] 61 U/L 40-129 [facility] Serum or plasma calcium amanda urement (mass/volume)Ordered By: Marycruz Yen on 03-04-2025 Calcium [Mass/Vol] 8.9 mg/dL 7.6-11.0 [facility] Serum or plasma urea nitroge n measurement (mass/volume)Ordered By: Marycruz Yen on 03-04-2025 Urea nitrogen [Mass/Vol] 24 mg/dL High 4-19 [facility] Serum or plasma uric acid me asurement (mass/volume)Ordered By: Marycruz Yen on 03-04-2025 Urate [Mass/Vol] 6.6 mg/dL 3.5-7.2 [facility] Sodium levelOrdered By: Anival Yen on 03-04-2025 Sodium [Moles/Vol] 143 mmol/L 133-145 [facility] Total proteinOrdered By: Jamir Yen on 03-04-2025 Protein [Mass/Vol] 7.2 g/dL 5.9-8.4 [facility] White blood cell (WBC) count Ordered By: Marycruz Yen on 03-04-2025 WBC (Bld) [#/Vol] 4.6 10*3/uL 4.4-11.0 [facility] Absolute lymphocyte countOrd ered By: Jonathan Lopez on 02-15-2025 Lymphocytes Auto (Unsp spec) [#/Vol] 1.69 10*3/uL 0.83-4.51 [facility] Anion gap in Serum or Plasma Ordered By: Jonathan Lopez on 02-15-2025 Anion gap [Moles/Vol] 12 mmol/L 5-15 [facility] Automated lymphocyte count a s percentage of total leukocytesOrdered By: Jonathan Lopez on 02-15-2025 Lymphocytes/100 WBC Auto (Unsp spec) 22.7 % 19-41 [facility] BUN/creatinine ratioOrdered By: Jonathan Lopez on 02-15-2025 Urea nitrogen/Creatinine [Mass ratio] 13.5 mg/mg 10-20 [facility] Basophil percentageOrdered B y: Jonathan Lopez on 02-15-2025 Basophils/100 WBC (Bld) 0.3 % 0-1 [facility] Carbon dioxide, total [Moles /volume] in Central venous bloodOrdered By: Jonathan Lopez on 02-15-2025 CO2 [Moles/Vol] 23.1 mmol/L 21.0-32.0 [facility] Chloride assayOrdered By: Rodger Lopez on 02-15-2025 Chloride [Moles/Vol] 102 mmol/L 98-108 [facility] Eosinophil percentageOrdered By: Jonathan Lopez on 02-15-2025 Eosinophils/100 WBC (Bld) 0.8 % 0-5 [facility] Erythrocyte distribution wid th ratioOrdered By: Jonathan Lopez on 02-15-2025 Erythrocyte distribution width (RBC) [Ratio] 14.1 % 11.6-14.6 [facility] Erythrocyte distribution wid th standard deviationOrdered By: Jonathan Lopez on 02-15-2025 Erythrocyte distribution width (RBC) [Ratio] 47.8 fl High 35.1-43.9 [facility] Glomerular filtration rate ( GFR) estimation/1.73 sq m using serum, plasma, or whole bOrdered By: Jonathan Lopez on 02-15-2025 GFR/1.73 sq M.predicted among non-blacks MDRD (S/P/Bld) [Vol rate/Area] 41 mL/min/{1.73_m2} Low >60 [facility] Hematocrit Auto (Bld) [Volum e fraction]Ordered By: Jonathan Lopez on 02-15-2025 Hematocrit (Bld) [Volume fraction] 29.3 % Low 40-54 [facility] Hemoglobin measurementOrdere d By: Jonathan Lopez on 02-15-2025 Hemoglobin (Bld) [Mass/Vol] 9.9 g/dL Low 13.0-16.5 [facility] Immature granulocytes/100 WB C Auto (Bld)Ordered By: Jonathan Lopez on 02-15-2025 Immature granulocytes/100 WBC (Bld) 0.300 % 0.0-0.9 [facility] Influenza virus A and B and SARS-CoV-2 (COVID-19) and Respiratory syncytial virus RNAOrdered By: Jonathan Lopez on 02-15-2025 SARS-CoV-2 (COVID-19) RNA IRINA+probe Ql (Unsp spec) [facility] MCV (mean corpuscular volume ) determinationOrdered By: Jonathan Lopez on 02-15-2025 MCV (RBC) [Entitic vol] 92.1 fL 80-94 [facility] Mean corpuscular hemoglobin (MCH) determinationOrdered By: Jonathan Lopez on 02-15-2025 MCH (RBC) [Entitic mass] 31.1 pg 27.0-32.0 [facility] Monocyte percentageOrdered B y: Jonathan Lopez on 02-15-2025 Monocytes/100 WBC (Bld) 10.9 % High 0-10 [facility] Neutrophil percentageOrdered By: Jonathan Lopez on 02-15-2025 Neutrophils/100 WBC (Bld) 65.0 % 47-70 [facility] Platelet countOrdered By: Rodger Lopez on 02-15-2025 Platelets (Bld) [#/Vol] 185 10*3/uL 150-450 [facility] Potassium measurement (mass/ volume)Ordered By: Jonathan Lopez on 02-15-2025 Potassium (Unsp spec) [Mass/Vol] 4.0 mmol/L 3.3-5.1 [facility] RBC Auto (Bld) [#/Vol]Ordere d By: Jonathan Lopez on 02-15-2025 RBC (Bld) [#/Vol] 3.18 10*6/uL Low 4.6-6.2 [facility] Serum creatinine measurement (mass/volume)Ordered By: Jonathan Lopez on 02-15-2025 Creatinine [Mass/Vol] 1.69 mg/dL High 0.70-1.20 [facility] Serum glucose measurement (m ass/volume)Ordered By: Jonathan Lopez on 02-15-2025 Glucose [Mass/Vol] 154 mg/dL High 70-99 [facility] Serum or plasma calcium amanda urement (mass/volume)Ordered By: Jonathan Lopez on 02-15-2025 Calcium [Mass/Vol] 8.7 mg/dL 7.6-11.0 [facility] Serum or plasma urea nitroge n measurement (mass/volume)Ordered By: Jonathan Lopez on 02-15-2025 Urea nitrogen [Mass/Vol] 23 mg/dL High 4-19 [facility] Sodium levelOrdered By: Jonathan Lopez on 02-15-2025 Sodium [Moles/Vol] 137 mmol/L 133-145 [facility] White blood cell (WBC) count Ordered By: Jonathan Lopez on 02-15-2025 WBC (Bld) [#/Vol] 7.4 10*3/uL 4.4-11.0 [facility] Anion gap in Serum or Plasma Ordered By: Juany Bellamy on 01-06-2025 Anion gap [Moles/Vol] 11 mmol/L 5-15 [facility] BUN/creatinine ratioOrdered By: Juany Bellamy on 01-06-2025 Urea nitrogen/Creatinine [Mass ratio] 12.0 mg/mg 10-20 [facility] Carbon dioxide, total [Moles /volume] in Central venous bloodOrdered By: Juany Bellamy on 01-06-2025 CO2 [Moles/Vol] 23.3 mmol/L 21.0-32.0 [facility] Chloride assayOrdered By: Michael Bellamy on 01-06-2025 Chloride [Moles/Vol] 106 mmol/L 98-108 [facility] Creatinine Unsp time (U) [Ma ss/Vol]Ordered By: Juany Bellamy on 01-06-2025 Creatinine (U) [Mass/Vol] 52.20 mg/dL 39.00-259. 00 [facility] Erythrocyte distribution wid th (RBC) [Ratio]Ordered By: Juany Bellamy on 01-06-2025 Erythrocyte distribution width (RBC) [Entitic vol] 54.2 fL High 35.1-43.9 [facility] Erythrocyte distribution wid th ratioOrdered By: Juany Bellamy on 01-06-2025 Erythrocyte distribution width (RBC) [Ratio] 15.5 % High 11.6-14.6 [facility] Erythrocyte distribution wid th standard deviationOrdered By: Juany Bellamy on 01-06-2025 Erythrocyte distribution width (RBC) [Ratio] 54.2 fl High 35.1-43.9 [facility] GFR/1.73 sq M.predicted ida g non-blacks MDRD (S/P/Bld) [Vol rate/Area]Ordered By: Juany Bellamy on 01-06-2025 Estimated GFR (MDRD) Non-Af Amer 39 Low >60 [facility] Comment on above: mL/min/1.73m2 CKD-EP I Creatinine Equation (2020) Glomerular filtration rate ( GFR) estimation/1.73 sq m using serum, plasma, or whole bOrdered By: Juany Bellamy on 01-06-2025 GFR/1.73 sq M.predicted among non-blacks MDRD (S/P/Bld) [Vol rate/Area] 39 mL/min/{1.73_m2} Low >60 [facility] Hematocrit Auto (Bld) [Volum e fraction]Ordered By: Juany Bellamy on 01-06-2025 Hematocrit (Bld) [Volume fraction] 28.2 % Low 40-54 [facility] Hemoglobin measurementOrdere d By: Juany Bellamy on 01-06-2025 Hemoglobin (Bld) [Mass/Vol] 9.3 g/dL Low 13.0-16.5 [facility] MCV (mean corpuscular volume ) determinationOrdered By: Juany Bellamy on 01-06-2025 MCV (RBC) [Entitic vol] 94.3 fL High 80-94 [facility] Mean corpuscular hemoglobin (MCH) determinationOrdered By: Juany Bellamy on 01-06-2025 MCH (RBC) [Entitic mass] 31.1 pg 27.0-32.0 [facility] Mean corpuscular hemoglobin concentration (MCHC) determinationOrdered By: Juany Bellamy on 01-06-2025 MCHC (RBC) [Mass/Vol] 33.0 g/dL 32-36 [facility] Mean platelet volume determi nationOrdered By: Juany Bellamy on 01-06-2025 Platelet mean volume (Bld) [Entitic vol] 11.5 fL 6.2-12.0 [facility] PTH intactOrdered By: Henrique Bellamy on 01-06-2025 Parathyroid Hormone (Intact) 29 pg/mL 11-61 [facility] Platelet countOrdered By: Michael Bellamy on 01-06-2025 Platelets (Bld) [#/Vol] 146 10*3/uL Low 150-450 [facility] Potassium (Unsp spec) [Mass/ Vol]Ordered By: Juany Bellamy on 01-06-2025 Potassium [Moles/Vol] 3.7 mmol/L 3.3-5.1 [facility] Potassium measurement (mass/ volume)Ordered By: Juany Bellamy on 01-06-2025 Potassium (Unsp spec) [Mass/Vol] 3.7 mmol/L 3.3-5.1 [facility] Protein/Creatinine (U) [Mass ratio]Ordered By: Juany Bellamy on 01-06-2025 Urine Protein/Creatinine Ratio 154 mg/g CRE 0-200 [facility] RBC Auto (Bld) [#/Vol]Ordere d By: Juany Bellamy on 01-06-2025 RBC (Bld) [#/Vol] 2.99 10*6/uL Low 4.6-6.2 [facility] Random urine creatinine amanda urement (mass/volume)Ordered By: Juany Bellamy on 01-06-2025 Creatinine Unsp time (U) [Mass/Vol] 52.20 mg/dL 39.00-259. 00 [facility] Serum creatinine measurement (mass/volume)Ordered By: Juany Bellamy on 01-06-2025 Creatinine [Mass/Vol] 1.74 mg/dL High 0.70-1.20 [facility] Serum glucose measurement (m ass/volume)Ordered By: Juany Bellamy on 01-06-2025 Glucose [Mass/Vol] 110 mg/dL High 70-99 [facility] Serum or plasma albumin amanda urement (mass/volume)Ordered By: Juany Bellamy on 01-06-2025 Albumin [Mass/Vol] 3.7 g/dL 3.4-4.8 [facility] Serum or plasma calcium amanda urement (mass/volume)Ordered By: Juany Bellamy on 01-06-2025 Calcium [Mass/Vol] 8.8 mg/dL 7.6-11.0 [facility] Serum or plasma urea nitroge n measurement (mass/volume)Ordered By: Juany Bellamy on 01-06-2025 Urea nitrogen [Mass/Vol] 21 mg/dL High 4-19 [facility] Serum phosphorus measurement Ordered By: Juany Bellamy on 01-06-2025 Phosphorus Level 3.4 mg/dL 2.7-4.5 [facility] Sodium levelOrdered By: Brian Bellamy on 01-06-2025 Sodium [Moles/Vol] 140 mmol/L 133-145 [facility] Urine protein measurement (m ass/volume)Ordered By: Juany Bellamy on 01-06-2025 Protein (U) [Mass/Vol] 8.0 mg/dL 0.0-12.0 [facility] Urine protein/creatinine mas s ratioOrdered By: Juany Bellamy on 01-06-2025 Protein/Creatinine (U) [Mass ratio] 154 mg/g CRE 0-200 [facility] White blood cell (WBC) count Ordered By: Juany Bellamy on 01-06-2025 WBC (Bld) [#/Vol] 7.3 10*3/uL 4.4-11.0 [facility] Diagnostic total prostate sp ecific antigen (PSA) measurementOrdered By: Surinder Larson on 12-25-2024 Prostate Specific Antigen Total 0.06 ng/mL 0.00-4.00 [facility] Comment on above: This test was [...] specific antigen (PSA) measurement 0.06 ng/mL 0.00-4.00 [facility] Cardiovascular stress test r eportOrdered By: Clifford Cordero on 12-10-2024 Study report [facility] Work Phone: Absolute lymphocyte countOrd ered By: Jayme Yang on 10-26-2024 Lymphocytes Auto (Unsp spec) [#/Vol] 1.20 10*3/uL 0.83-4.51 [facility] Absolute neutrophil countOrd ered By: Jayme Yang on 10-26-2024 Neutrophils (Bld) [#/Vol] 1.9 10*3/uL Low 2.0-7.7 [facility] Absolute neutrophil count 1.9 X10^3/uL Low 2.0-7.7 [facility] Automated lymphocyte count a s percentage of total leukocytesOrdered By: Jayme Yang on 10-26-2024 Lymphocytes/100 WBC Auto (Unsp spec) 34.3 % 19-41 [facility] Basophil percentageOrdered B y: Jayme Yang on 10-26-2024 Basophils/100 WBC (Bld) 0.3 % 0-1 [facility] Basophil percentage 0.3 % 0-1 [facility] Eosinophil percentageOrdered By: Jayme Yang on 10-26-2024 Eosinophils/100 WBC (Bld) 0.9 % 0-5 [facility] Eosinophil percentage 0.9 % 0-5 [facility] Erythrocyte distribution wid th (RBC) [Entitic vol]Ordered By: Jayme Yang on 10-26-2024 Erythrocyte distribution width standard deviation 51.6 fl High 35.1-43.9 [facility] Erythrocyte distribution wid th (RBC) [Ratio]Ordered By: Jayme Yang on 10-26-2024 Erythrocyte distribution width ratio 14.9 % High 11.6-14.6 [facility] Erythrocyte distribution width (RBC) [Entitic vol] 51.6 fL High 35.1-43.9 [facility] Erythrocyte distribution wid th ratioOrdered By: Jayme Yang on 10-26-2024 Erythrocyte distribution width (RBC) [Ratio] 14.9 % High 11.6-14.6 [facility] Erythrocyte distribution wid th standard deviationOrdered By: Jayme Yang on 10-26-2024 Erythrocyte distribution width (RBC) [Ratio] 51.6 fl High 35.1-43.9 [facility] Hematocrit Auto (Bld) [Volum e fraction]Ordered By: Jayme Yang on 10-26-2024 Hematocrit (Bld) [Volume fraction] 29.0 % Low 40-54 [facility] Automated blood hematocrit (percentage) 29.0 % Low 40-54 [facility] Hemoglobin measurementOrdere d By: Jayme Yang on 10-26-2024 Hemoglobin (Bld) [Mass/Vol] 9.6 g/dL Low 13.0-16.5 [facility] Hemoglobin measurement 9.6 g/dL Low 13.0-16.5 [facility] Immature granulocytes/100 WB C Auto (Bld)Ordered By: Jayme Yang on 10-26-2024 Immature granulocytes/100 WBC (Bld) 0.600 % 0.0-0.9 [facility] Comment on above: IG% - Immature Granu locytes (promyelocytes, myelocytes and metamyelocytes) > 1% indicates that a LEFT SHIFT is Present. Automated immature granulocyte percentage 0.600 % 0.0-0.9 [facility] Lymphocytes Auto (Unsp spec) [#/Vol]Ordered By: Jayme Yang on 10-26-2024 Lymphocytes (Bld) [#/Vol] 1.20 10*3/uL 0.83-4.51 [facility] Absolute lymphocyte count 1.20 X10^3/uL 0.83-4.51 [facility] Lymphocytes/100 WBC Auto (Un sp spec)Ordered By: Jayme Yang on 10-26-2024 Lymphocytes/100 WBC (Bld) 34.3 % [facility] Automated lymphocyte count as percentage of total leukocytes 34.3 % [facility] MCV (RBC) [Entitic vol]Order ed By: Jayme Yang on 10-26-2024 MCV (mean corpuscular volume) determination 93.9 fL 80-94 [facility] MCV (mean corpuscular volume ) determinationOrdered By: Jayme Yang on 10-26-2024 MCV (RBC) [Entitic vol] 93.9 fL 80-94 [facility] Mean corpuscular hemoglobin (MCH) determinationOrdered By: Jayme Yang on 10-26-2024 MCH (RBC) [Entitic mass] 31.1 pg 27.0-32.0 [facility] Mean corpuscular hemoglobin (MCH) determination 31.1 pg 27.0-32.0 [facility] Mean corpuscular hemoglobin concentration (MCHC) determinationOrdered By: Jayme Yang on 10-26-2024 MCHC (RBC) [Mass/Vol] 33.1 g/dL 32-36 [facility] Mean corpuscular hemoglobin concentration (MCHC) determination 33.1 g/dL -36 [facility] Mean platelet volume determi nationOrdered By: Jayme Yang on 10-26-2024 Platelet mean volume (Bld) [Entitic vol] 11.6 fL 6.2-12.0 [facility] Mean platelet volume determination 11.6 fl 6.2-12.0 [facility] Monocyte percentageOrdered B y: Jayme Yang on 01-27-2025 Monocytes/100 WBC (Bld) 10.9 % High 0-10 [facility] Monocyte percentage 10.9 % High 0-10 [facility] Neutrophil percentageOrdered By: Jayme Yang on 10-26-2024 Neutrophils/100 WBC (Bld) 53.0 % 47-70 [facility] Neutrophil percentage 53.0 % 47-70 [facility] Nucleated red blood cell per centageOrdered By: Jayme Yang on 10-26-2024 Nucleated RBC/100 WBC (Bld) [Ratio] 0 % 0-5 [facility] Nucleated red blood cell percentage 0 % 0-5 [facility] Platelet countOrdered By: Adry Yang on 10-26-2024 Platelets (Bld) [#/Vol] 121 10*3/uL Low 150-450 [facility] Platelet count 121 K/mm3 Low 150-450 [facility] RBC Auto (Bld) [#/Vol]Ordere d By: Jayme Yang on 10-26-2024 RBC (Bld) [#/Vol] 3.09 10*6/uL Low 4.6-6.2 [facility] Automated blood erythrocyte count 3.09 M/mm3 Low 4.6-6.2 [facility] White blood cell (WBC) count Ordered By: Jayme Yang on 10-26-2024 WBC (Bld) [#/Vol] 3.5 10*3/uL Low 4.4-11.0 [facility] White blood cell (WBC) count 3.5 K/mm3 Low 4.4-11.0 [facility] Diagnostic total prostate sp ecific antigen (PSA) measurementOrdered By: Keo Montemayor on 10-05-2024 Prostate Specific Antigen Total 0.08 ng/mL 0.0-4.0 [facility] Comment on above: This test was perfor med using the TPSA assay method for the[employer] chemistry system. Values obtained with differentassay methods cannot be used interchangably.When changing PSA assays in the course of monitoring apatient, additional sequential testing should be carriedout to confirm baseline values. Diagnostic total prostate specific antigen (PSA) measurement 0.08 ng/mL 0.0-4.0 [facility] ALP [Catalytic activity/Vol] Ordered By: Marycruz Yen on 09-12-2024 Serum or plasma alkaline phosphatase measurement 48 U/L 45-117 [facility] ALT [Catalytic activity/Vol] Ordered By: Marycruz Yen on 09-12-2024 Serum or plasma alanine aminotransferase (ALT) measurement 32 U/L 16-61 [facility] Absolute neutrophil countOrd ered By: Marycruz Yen on 09-12-2024 Absolute neutrophil count 1.7 X10^3/uL Low 2.0-7.7 [facility] Albumin [Mass/Vol]Ordered By : Marycruz Yen on 09-12-2024 Serum or plasma albumin measurement (mass/volume) 3.5 g/dL 3.2-5.0 [facility] Albumin to globulin ratioOrd ered By: Marycruz Yen on 09-12-2024 Albumin to globulin ratio 1.1 RATIO 0.9-2.4 [facility] Basophil percentageOrdered B y: Marycruz Yen on 09-12-2024 Basophil percentage 0.3 % 0-1 [facility] Bilirubin, totalOrdered By: Marycruz Yen on 09-12-2024 Bilirubin, total 0.40 mg/dL 0.20-1.00 [facility] Blood urea nitrogen (BUN)/cr eatinine ratioOrdered By: Marycruz Yen 09-12-2024 Blood urea nitrogen (BUN)/creatinine ratio 11.7 RATIO 10-20 [facility] Calcium [Mass/Vol]Ordered By : Marycruz Yen on 09-12-2024 Serum or plasma calcium measurement (mass/volume) 9.1 mg/dL 8.5-10.1 [facility] Carbon dioxide measurementOr dered By: Marycruz Yen on 09-12-2024 Carbon dioxide measurement 32.0 mmol/L 21.0-32.0 [facility] Chloride measurementOrdered By: Marycruz Yen on 09-12-2024 Chloride measurement 108 mmol/L High 98-107 [facility] Creatinine [Mass/Vol]Ordered By: Marycruz Yen on 09-12-2024 Serum or plasma creatinine measurement (mass/volume) 1.37 mg/dL High 0.70-1.30 [facility] Eosinophil percentageOrdered By: Marycruz Yen on 09-12-2024 Eosinophil percentage 1.7 % 0-5 [facility] Erythrocyte distribution wid th (RBC) [Entitic vol]Ordered By: Marycruz Yen on 09-12-2024 Erythrocyte distribution width standard deviation 53.8 fl High 35.1-43.9 [facility] Erythrocyte distribution wid th (RBC) [Ratio]Ordered By: Marycruz Yen on 09-12-2024 Erythrocyte distribution width ratio 15.3 % High 11.6-14.6 [facility] Estimated glomerular filtrat ion rate (GFR) AmericanOrdered By: Marycruz Yen on 09-12-2024 Estimated glomerular filtration rate (GFR) 64 mL/min >60 [facility] Glomerular filtration rate ( GFR) estimationOrdered By: Marycruz Yen on 09-12-2024 Glomerular filtration rate (GFR) estimation 53 mL/min Low >60 [facility] Glucose measurementOrdered B y: Marycruz Yen on 09-12-2024 Glucose measurement 116 mg/dL High 74-106 [facility] Hematocrit Auto (Bld) [Volum e fraction]Ordered By: Marycruz Yen on 09-12-2024 Automated blood hematocrit (percentage) 32.1 % Low 40-54 [facility] Hemoglobin measurementOrdere d By: Marycruz Yen on 09-12-2024 Hemoglobin measurement 10.5 g/dL Low 13.0-16.5 [facility] Immature granulocytes/100 WB C Auto (Bld)Ordered By: Marycruz Yen on 09-12-2024 Automated immature granulocyte percentage 0.300 % 0.0-0.9 [facility] Lymphocytes Auto (Unsp spec) [#/Vol]Ordered By: Marycruz Yen on 09-12-2024 Absolute lymphocyte count 1.42 X10^3/uL 0.83-4.51 [facility] Lymphocytes/100 WBC Auto (Un sp spec)Ordered By: Marycruz Yen on 09-12-2024 Automated lymphocyte count as percentage of total leukocytes 40.7 % 19-41 [facility] MCV (RBC) [Entitic vol]Order ed By: Marycruz Yen on 09-12-2024 MCV (mean corpuscular volume) determination 95.3 fL High 80-94 [facility] Mean corpuscular hemoglobin (MCH) determinationOrdered By: Marycruz Yen on 09-12-2024 Mean corpuscular hemoglobin (MCH) determination 31.2 pg 27.0-32.0 [facility] Mean corpuscular hemoglobin concentration (MCHC) determinationOrdered By: Marycruz Yen on 09-12-2024 Mean corpuscular hemoglobin concentration (MCHC) determination 32.7 g/dL 32-36 [facility] Mean platelet volume determi nationOrdered By: Marycruz Yen on 09-12-2024 Mean platelet volume determination 10.8 fl 6.2-12.0 [facility] Monocyte percentageOrdered B y: Marycruz Yen on 09-12-2024 Monocyte percentage 8.3 % 0-10 [facility] Neutrophil percentageOrdered By: Marycruz Yen on 09-12-2024 Neutrophil percentage 48.7 % 47-70 [facility] No Panel InformationOrdered By: Marycruz Yen on 09-12-2024 19 U/L 15-37 [facility] Nucleated red blood cell per centageOrdered By: Marycruz Yen on 09-12-2024 Nucleated red blood cell percentage 0 % 0-5 [facility] Platelet countOrdered By: Adry Yen on 09-12-2024 Platelet count 141 K/mm3 Low 150-450 [facility] Potassium measurementOrdered By: Marycruz Yen on 09-12-2024 Potassium measurement 3.6 mmol/L 3.5-5.1 [facility] RBC Auto (Bld) [#/Vol]Ordere d By: Marycruz Yen on 09-12-2024 Automated blood erythrocyte count 3.37 M/mm3 Low 4.6-6.2 [facility] Serum anion gap measurementO rdered By: Marycruz Yen on 09-12-2024 Serum anion gap measurement 3 Low 5-15 [facility] Serum globulin measurementOr dered By: Marycruz Yen on 09-12-2024 Serum globulin measurement 3.2 g/dL 2.2-4.2 [facility] Sodium levelOrdered By: Anival Yen on 09-12-2024 Sodium level 143 mmol/L 136-145 [facility] Total proteinOrdered By: Jamir Yen on 09-12-2024 Total protein 6.7 g/dL 6.4-8.2 [facility] Urate [Mass/Vol]Ordered By: Marycruz Yen on 09-12-2024 Serum or plasma uric acid measurement (mass/volume) 5.2 mg/dL 3.5-7.2 [facility] Urea nitrogen [Mass/Vol]Orde red By: Marycruz Yen on 09-12-2024 Serum or plasma urea nitrogen measurement (mass/volume) 16 mg/dL 7-18 [facility] White blood cell (WBC) count Ordered By: Marycruz Yen on 09-12-2024 White blood cell (WBC) count 3.5 K/mm3 Low 4.4-11.0 [facility] Absolute lymphocyte countOrd ered By: Marycruz Yen on 01-10-2024 Lymphocytes Auto (Unsp spec) [#/Vol] 1.47 10*3/uL 0.83-4.51 [facility] Automated lymphocyte count a s percentage of total leukocytesOrdered By: Marycruz Yen on 01-10-2024 Lymphocytes/100 WBC Auto (Unsp spec) 19.7 % 19-41 [facility] Basophil percentageOrdered B y: Marycruz Yen on 01-10-2024 Basophil percentage 12.1 g/dL 13.0-16.5 [facility] Basophil percentage 119 mg/dL 74-106 [facility] Basophil percentage 7.3 g/dL 6.4-8.2 [facility] Basophil percentage 0.40 mg/dL 0.20-1.00 [facility] Basophil percentage 139 mmol/L 136-145 [facility] Basophil percentage 3.5 mmol/L 3.5-5.1 [facility] Basophil percentage 107 mmol/L 98-107 [facility] Basophils (Bld) [#/Vol] 7.5 10*3/uL 4.4-11.0 [facility] Basophils (Bld) [#/Vol] 5.1 10*3/uL 2.0-7.7 [facility] Basophils/100 WBC (Bld) 68.5 % 47-70 [facility] Basophils/100 WBC (Bld) 9.6 % 0-10 [facility] Basophils/100 WBC (Bld) 1.6 % 0-5 [facility] Basophils/100 WBC (Bld) 0.3 % 0-1 [facility] Determination of erythrocyte mean corpuscular volume (MCV)Ordered By: Marycruz Yen on 01-10-2024 MCV (RBC) [Entitic vol] 94.1 fL 80-94 [facility] Erythrocyte distribution wid th ratioOrdered By: Marycruz Yen on 01-10-2024 Erythrocyte distribution width (RBC) [Ratio] 14.2 % 11.6-14.6 [facility] Erythrocyte distribution wid th standard deviationOrdered By: Marycruz Yen on 01-10-2024 Erythrocyte distribution width (RBC) [Entitic vol] 48.6 fL 35.1-43.9 [facility] Hematocrit Auto (Bld) [Volum e fraction]Ordered By: Marycruz Yen on 01-10-2024 Hematocrit (Bld) [Volume fraction] 36.6 % 40-54 [facility] Immature granulocytes/100 WB C Auto (Bld)Ordered By: Marycruz Yen on 01-10-2024 Immature granulocytes/100 WBC (Bld) 0.300 % 0.0-0.9 [facility] No Panel InformationOrdered By: Marycruz Yen on 01-10-2024 31.1 pg 27.0-32.0 [facility] 33.1 g/dL 32-36 [facility] 185 K/mm3 150-450 [facility] 11.9 fl 6.2-12.0 [facility] 0 % 0-5 [facility] 46 mL/min >60 [facility] 55 mL/min >60 [facility] 12.7 RATIO 10-20 [facility] 3.7 g/dL 2.2-4.2 [facility] 1.0 RATIO 0.9-2.4 [facility] 58 U/L 45-117 [facility] 41 U/L 16-61 [facility] 29.0 mmol/L 21.0-32.0 [facility] RBC Auto (Bld) [#/Vol]Ordere d By: Marycruz Yen on 01-10-2024 RBC (Bld) [#/Vol] 3.89 10*6/uL 4.6-6.2 [facility] Serum or plasma calcium amanda urement (mass/volume)Ordered By: Marycruz Yen on 01-10-2024 Calcium [Mass/Vol] 9.1 mg/dL 8.5-10.1 [facility] Serum or plasma creatinine m easurement (mass/volume)Ordered By: Marycruz Yen on 01-10-2024 Creatinine [Mass/Vol] 1.57 mg/dL 0.70-1.30 [facility] Serum or plasma urea nitroge n measurement (mass/volume)Ordered By: Marycruz Yen on 01-10-2024 Urea nitrogen [Mass/Vol] 20 mg/dL 7-18 [facility] Serum or plasma uric acid me asurement (mass/volume)Ordered By: Marycruz Yen on 01-10-2024 Urate [Mass/Vol] 5.8 mg/dL 3.5-7.2 [facility] Thin prep Papanicolaou smear with manual screeningOrdered By: Marycruz Yen on 01-10-2024 Thin prep Papanicolaou smear with manual screening 3.6 g/dL 3.2-5.0 [facility] Thin prep Papanicolaou smear with manual screening 36 U/L 15-37 [facility] Thin prep Papanicolaou smear with manual screening 3 5-15 [facility] Basophil percentageOrdered B y: Suzie Ashton on 12-11-2023 Basophil percentage 0.07 ng/mL 0.0-4.0 [facility] Serum or plasma thyroid stim ulating hormone (TSH) measurement (units/volume)Ordered By: Suzie Ashton on 12-11-2023 TSH Qn 5.13 uIU/mL 0.358-3.74 [facility] Basophil percentageOrdered B y: Js Lee on 11-13-2023 Basophil percentage 139 mg/dL 74-106 [facility] Basophil percentage 146 mmol/L 136-145 [facility] Basophil percentage 3.5 mmol/L 3.5-5.1 [facility] Basophil percentage 111 mmol/L 98-107 [facility] No Panel InformationOrdered By: Js Lee on 11-13-2023 61 mL/min >60 [facility] 74 mL/min >60 [facility] 55.64 ml/min [facility] 17.4 RATIO 10-20 [facility] 31.0 mmol/L 21.0-32.0 [facility] Serum or plasma calcium amanda urement (mass/volume)Ordered By: Js Lee on 11-13-2023 Calcium [Mass/Vol] 8.9 mg/dL 8.5-10.1 [facility] Serum or plasma creatinine m easurement (mass/volume)Ordered By: Js Lee on 11-13-2023 Creatinine [Mass/Vol] 1.21 mg/dL 0.70-1.30 [facility] Serum or plasma urea nitroge n measurement (mass/volume)Ordered By: Js Lee on 11-13-2023 Urea nitrogen [Mass/Vol] 21 mg/dL 7-18 [facility] Thin prep Papanicolaou smear with manual screeningOrdered By: Js Lee on 11-13-2023 Thin prep Papanicolaou smear with manual screening 4 5-15 [facility] Basophil percentageOrdered B y: Js Lee on 11-12-2023 Basophil percentage 11.8 g/dL 13.0-16.5 [facility] Basophils (Bld) [#/Vol] 5.8 10*3/uL 4.4-11.0 [facility] Determination of erythrocyte mean corpuscular volume (MCV)Ordered By: Js Lee on 11-12-2023 MCV (RBC) [Entitic vol] 94.7 fL 80-94 [facility] Erythrocyte distribution wid th ratioOrdered By: Js Lee on 11-12-2023 Erythrocyte distribution width (RBC) [Ratio] 15.7 % 11.6-14.6 [facility] Erythrocyte distribution wid th standard deviationOrdered By: Js Lee on 11-12-2023 Erythrocyte distribution width (RBC) [Entitic vol] 54.9 fL 35.1-43.9 [facility] Hematocrit Auto (Bld) [Volum e fraction]Ordered By: Js Lee on 11-12-2023 Hematocrit (Bld) [Volume fraction] 36.0 % 40-54 [facility] No Panel InformationOrdered By: Js Lee on 11-12-2023 31.1 pg 27.0-32.0 [facility] 32.8 g/dL 32-36 [facility] 166 K/mm3 150-450 [facility] 11.4 fl 6.2-12.0 [facility] No Panel InformationOrdered By: Laureano Jennings on 11-12-2023 146 pg/mL 3.0-78.0 [facility] RBC Auto (Bld) [#/Vol]Ordere d By: Js Lee on 11-12-2023 RBC (Bld) [#/Vol] 3.80 10*6/uL 4.6-6.2 [facility] Absolute lymphocyte countOrd ered By: Ana Maria Barnhart on 11-11-2023 Lymphocytes Auto (Unsp spec) [#/Vol] 2.28 10*3/uL 0.83-4.51 [facility] Automated lymphocyte count a s percentage of total leukocytesOrdered By: Ana Maria Barnhart on 11-11-2023 Lymphocytes/100 WBC Auto (Unsp spec) 32.6 % 19-41 [facility] Basophil percentageOrdered B y: Laureano Jennings on 11-11-2023 Basophil percentage 148 mg/dL <200 [facility] Basophil percentage 255 mg/dL <199 [facility] Basophil percentageOrdered B y: Ana Maria Barnhart on 11-11-2023 Basophil percentage 12.5 g/dL 13.0-16.5 [facility] Basophil percentage 221 mg/dL 74-106 [facility] Basophil percentage 144 mmol/L 136-145 [facility] Basophil percentage 3.4 mmol/L 3.5-5.1 [facility] Basophil percentage 111 mmol/L 98-107 [facility] Basophils (Bld) [#/Vol] 7.0 10*3/uL 4.4-11.0 [facility] Basophils (Bld) [#/Vol] 3.7 10*3/uL 2.0-7.7 [facility] Basophils/100 WBC (Bld) 52.3 % 47-70 [facility] Basophils/100 WBC (Bld) 11.6 % 0-10 [facility] Basophils/100 WBC (Bld) 2.9 % 0-5 [facility] Basophils/100 WBC (Bld) 0.3 % 0-1 [facility] Determination of erythrocyte mean corpuscular volume (MCV)Ordered By: Ana Maria Barnhart on 11-11-2023 MCV (RBC) [Entitic vol] 94.4 fL 80-94 [facility] Erythrocyte distribution wid th ratioOrdered By: Ana Maria Barnhart on 11-11-2023 Erythrocyte distribution width (RBC) [Ratio] 15.3 % 11.6-14.6 [facility] Erythrocyte distribution wid th standard deviationOrdered By: Ana Maria Barnhart on 11-11-2023 Erythrocyte distribution width (RBC) [Entitic vol] 53.4 fL 35.1-43.9 [facility] Hematocrit Auto (Bld) [Volum e fraction]Ordered By: Ana Maria Barnhart on 11-11-2023 Hematocrit (Bld) [Volume fraction] 38.6 % 40-54 [facility] Immature granulocytes/100 WB C Auto (Bld)Ordered By: Ana Maria Barnhart on 11-11-2023 Immature granulocytes/100 WBC (Bld) 0.300 % 0.0-0.9 [facility] No Panel InformationOrdered By: Laureano Jennings on 11-11-2023 33 mg/dL >40 [facility] 64 mg/dL 0-130 [facility] 51 mg/dL 5-40 [facility] No Panel InformationOrdered By: Ana Maria Barnhart on 11-11-2023 30.6 pg 27.0-32.0 [facility] 32.4 g/dL 32-36 [facility] 155 K/mm3 150-450 [facility] 11.2 fl 6.2-12.0 [facility] 0 % 0-5 [facility] 51 mL/min >60 [facility] 61 mL/min >60 [facility] 47.81 ml/min [facility] 11.2 RATIO 10-20 [facility] 1.9 mg/dL 1.6-2.6 [facility] 28.0 mmol/L 21.0-32.0 [facility] RBC Auto (Bld) [#/Vol]Ordere d By: Ana Maria Barnhart on 11-11-2023 RBC (Bld) [#/Vol] 4.09 10*6/uL 4.6-6.2 [facility] Serum or plasma calcium amanda urement (mass/volume)Ordered By: Ana Maria Barnhart on 11-11-2023 Calcium [Mass/Vol] 9.1 mg/dL 8.5-10.1 [facility] Serum or plasma cardiac trop onin I panel by high sensitivity methodOrdered By: Ana Maria Barnhart on 11-11-2023 Tropinin I.cardiac panel High sensitivity method 23 pg/mL 3.0-78.0 [facility] Serum or plasma creatinine m easurement (mass/volume)Ordered By: Ana Maria Barnhart on 11-11-2023 Creatinine [Mass/Vol] 1.43 mg/dL 0.70-1.30 [facility] Serum or plasma urea nitroge n measurement (mass/volume)Ordered By: Ana Maria Barnhart on 11-11-2023 Urea nitrogen [Mass/Vol] 16 mg/dL 7-18 [facility] Thin prep Papanicolaou smear with manual screeningOrdered By: Ana Maria Barnhart on 11-11-2023 Thin prep Papanicolaou smear with manual screening 5 5-15 [facility] Basophil percentageOrdered B y: Keo Montemayor on 11-08-2023 Basophil percentage 0 SEEN /hpf 0-5 [facility] Bilirubin Test strip Ql (U)O rdered By: Keo Montemayor on 11-08-2023 Bilirubin Ql (U) Negative Negative [facility] Ketones Test strip Ql (U)Ord ered By: Keo Montemayor on 11-08-2023 Ketones Ql (U) Negative Negative [facility] Mucus LM Ql (Urine sed)Order ed By: Keo Montemayor on 11-08-2023 Mucus Ql (Urine sed) RARE /hpf [facility] Nitrite Test strip Ql (U)Ord ered By: Keo Montemayor on 11-08-2023 Nitrite Ql (U) Negative Negative [facility] No Panel InformationOrdered By: Keo Montemayor on 11-08-2023 10-25 SEEN /hpf 0-5 [facility] Protein Test strip Ql (U)Ord ered By: Keo Montemayor on 11-08-2023 Protein Ql (U) 100 mg/dl Negative [facility] Squamous epithelial cells de tection in urine sediment by light microscopyOrdered By: Keo Montemayor on 11-08-2023 Epithelial cells.squamous LM Ql (Urine sed) 0-5 SEEN /hpf 0-5 [facility] Urine blood detectionOrdered By: Keo Montemayor on 11-08-2023 RBC Ql (U) 25 /ul Negative [facility] Urine clarityOrdered By: Magdi Montemayor on 11-08-2023 Clarity (U) Sl. Cloudy Clear [facility] Urine color determinationOrd ered By: Keo Montemayor on 11-08-2023 Color (U) Yellow Yellow [facility] Urine glucose detectionOrder ed By: Keo Montemayor on 11-08-2023 Glucose Ql (U) Normal mg/dl Normal [facility] Urine leukocyte esterase det ection by dipstickOrdered By: Keo Montemayor on 11-08-2023 Leukocyte esterase Test strip Ql (U) Negative Negative [facility] Urine pHOrdered By: Keo myers on 11-08-2023 pH (U) 6.0 [pH] 5.0 - 8.0 [facility] Urine sediment bacteria coun t by microscopy (number/high power field)Ordered By: Keo Montemayor on 11-08-2023 Bacteria LM.HPF (Urine sed) [#/Area] RARE /hpf None Seen [facility] Urine specific gravity measu rementOrdered By: Keo Montemayor on 11-08-2023 Specific gravity (U) [Rel density] 1.015 1.002-1.03 0 [facility] Urine urobilinogen measureme ntOrdered By: Keo Montemayor on 11-08-2023 Urobilinogen Ql (U) Normal mg/dl Normal [facility] Absolute lymphocyte countOrd ered By: Marycruz Yen on 10-16-2023 Lymphocytes Auto (Unsp spec) [#/Vol] 1.88 10*3/uL 0.83-4.51 [facility] Automated lymphocyte count a s percentage of total leukocytesOrdered By: Marycruz Yen on 10-16-2023 Lymphocytes/100 WBC Auto (Unsp spec) 37.8 % 19-41 [facility] Basophil percentageOrdered B y: Marycruz Yen on 10-16-2023 Basophil percentage 12.2 g/dL 13.0-16.5 [facility] Basophil percentage 119 mg/dL 74-106 [facility] Basophil percentage 7.4 g/dL 6.4-8.2 [facility] Basophil percentage 0.40 mg/dL 0.20-1.00 [facility] Basophil percentage 143 mmol/L 136-145 [facility] Basophil percentage 3.8 mmol/L 3.5-5.1 [facility] Basophil percentage 110 mmol/L 98-107 [facility] Basophils (Bld) [#/Vol] 5.0 10*3/uL 4.4-11.0 [facility] Basophils (Bld) [#/Vol] 2.1 10*3/uL 2.0-7.7 [facility] Basophils/100 WBC (Bld) 42.7 % 47-70 [facility] Basophils/100 WBC (Bld) 13.1 % 0-10 [facility] Basophils/100 WBC (Bld) 5.8 % 0-5 [facility] Basophils/100 WBC (Bld) 0.4 % 0-1 [facility] Determination of erythrocyte mean corpuscular volume (MCV)Ordered By: Marycruz Yen on 10-16-2023 MCV (RBC) [Entitic vol] 93.9 fL 80-94 [facility] Erythrocyte distribution wid th ratioOrdered By: Marycruz Yen on 10-16-2023 Erythrocyte distribution width (RBC) [Ratio] 16.2 % 11.6-14.6 [facility] Erythrocyte distribution wid th standard deviationOrdered By: Marycruz Yen on 10-16-2023 Erythrocyte distribution width (RBC) [Entitic vol] 55.0 fL 35.1-43.9 [facility] Hematocrit Auto (Bld) [Volum e fraction]Ordered By: Marycruz Yen on 10-16-2023 Hematocrit (Bld) [Volume fraction] 36.7 % 40-54 [facility] Immature granulocytes/100 WB C Auto (Bld)Ordered By: Marycruz Yen on 10-16-2023 Immature granulocytes/100 WBC (Bld) 0.200 % 0.0-0.9 [facility] No Panel InformationOrdered By: Marycruz Yen on 10-16-2023 31.2 pg 27.0-32.0 [facility] 33.2 g/dL 32-36 [facility] 152 K/mm3 150-450 [facility] 0 % 0-5 [facility] 58 mL/min >60 [facility] 70 mL/min >60 [facility] 12.5 RATIO 10-20 [facility] 4.1 g/dL 2.2-4.2 [facility] 0.8 RATIO 0.9-2.4 [facility] 57 U/L 16-61 [facility] 28.0 mmol/L 21.0-32.0 [facility] Platelet mean volume Derrick-Ec ker (Bld) [Entitic vol]Ordered By: Marycruz Yen on 10-16-2023 Platelet mean volume (Bld) [Entitic vol] 10.4 fL 6.2-12.0 [facility] RBC Auto (Bld) [#/Vol]Ordere d By: Marycruz Yen on 10-16-2023 RBC (Bld) [#/Vol] 3.91 10*6/uL 4.6-6.2 [facility] Serum or plasma calcium amanda urement (mass/volume)Ordered By: Marycruz Yen on 10-16-2023 Calcium [Mass/Vol] 9.2 mg/dL 8.5-10.1 [facility] Serum or plasma creatinine m easurement (mass/volume)Ordered By: Marycruz Yen on 10-16-2023 Creatinine [Mass/Vol] 1.28 mg/dL 0.70-1.30 [facility] Serum or plasma urea nitroge n measurement (mass/volume)Ordered By: Marycruz Yen on 10-16-2023 Urea nitrogen [Mass/Vol] 16 mg/dL 7-18 [facility] Serum or plasma uric acid me asurement (mass/volume)Ordered By: Marycruz Yen on 10-16-2023 Urate [Mass/Vol] 4.3 mg/dL 3.5-7.2 [facility] Thin prep Papanicolaou smear with manual screeningOrdered By: Marycruz Yen on 10-16-2023 Thin prep Papanicolaou smear with manual screening 3.3 g/dL 3.2-5.0 [facility] Thin prep Papanicolaou smear with manual screening 39 U/L 15-37 [facility] Thin prep Papanicolaou smear with manual screening 5 5-15 [facility] Absolute lymphocyte countOrd ered By: Marycruz Yen on 09-27-2023 Lymphocytes Auto (Unsp spec) [#/Vol] 1.33 10*3/uL 0.83-4.51 [facility] Basophil percentageOrdered B y: Marycruz Yen on 09-27-2023 Basophil percentage 288 mg/dL 74-106 [facility] Basophil percentage 7.0 g/dL 6.4-8.2 [facility] Basophil percentage 0.40 mg/dL 0.20-1.00 [facility] Basophil percentage 139 mmol/L 136-145 [facility] Basophil percentage 3.6 mmol/L 3.5-5.1 [facility] Basophil percentage 105 mmol/L 98-107 [facility] Basophils (Bld) [#/Vol] 6.7 10*3/uL 4.4-11.0 [facility] Basophils (Bld) [#/Vol] 4.3 10*3/uL 2.0-7.7 [facility] Basophils/100 WBC (Bld) 64.9 % 47-70 [facility] Basophils/100 WBC (Bld) 0.9 % 0-5 [facility] Basophils/100 WBC (Bld) 0.1 % 0-1 [facility] Blood erythrocytes count (nu mber/volume)Ordered By: Marycruz Yen on 09-27-2023 RBC (Bld) [#/Vol] 3.97 10*6/uL 4.6-6.2 [facility] Blood hemoglobin measurement (mass/volume)Ordered By: Marycruz Yen on 09-27-2023 Hemoglobin (Bld) [Mass/Vol] 12.3 g/dL 13.0-16.5 [facility] Blood lymphocytes/100 leukoc ytesOrdered By: Marycruz Yen on 09-27-2023 Lymphocytes/100 WBC (Bld) 19.9 % 19-41 [facility] Blood monocytes/100 leukocyt esOrdered By: Marycruz Yen on 09-27-2023 Monocytes/100 WBC (Bld) 12.3 % 0-10 [facility] Blood platelet mean volumeOr dered By: Marycruz Yen on 09-27-2023 Platelet mean volume (Bld) [Entitic vol] 10.2 fL 6.2-12.0 [facility] Determination of erythrocyte mean corpuscular volume (MCV)Ordered By: Marycruz Yen on 09-27-2023 MCV (RBC) [Entitic vol] 91.9 fL 80-94 [facility] Hematocrit Auto (Bld) [Volum e fraction]Ordered By: Marycruz Yen on 09-27-2023 Hematocrit (Bld) [Volume fraction] 36.5 % 40-54 [facility] MCHC Auto (RBC) [Mass/Vol]Or dered By: Marycruz Yen on 09-27-2023 MCHC (RBC) [Mass/Vol] 33.7 g/dL 32-36 [facility] No Panel InformationOrdered By: Marycruz Yen on 09-27-2023 31.0 pg 27.0-32.0 [facility] 15.1 % 11.6-14.6 [facility] 50.6 fl 35.1-43.9 [facility] 1.900 % 0.0-0.9 [facility] 0.6 % 0-5 [facility] 45 mL/min >60 [facility] 54 mL/min >60 [facility] 15.6 RATIO 10-20 [facility] 4.1 g/dL 2.2-4.2 [facility] 65 U/L 45-117 [facility] 48 U/L 16-61 [facility] 28.0 mmol/L 21.0-32.0 [facility] Platelets bldOrdered By: Jamir Yen on 09-27-2023 Platelets (Bld) [#/Vol] 132 10*3/uL 150-450 [facility] Serum or plasma albumin amanda urement (mass/volume)Ordered By: Marycruz Yen on 09-27-2023 Albumin [Mass/Vol] 2.9 g/dL 3.2-5.0 [facility] Serum or plasma albumin/glob ulin mass ratioOrdered By: Marycruz Yen on 09-27-2023 Albumin/Globulin [Mass ratio] 0.7 {ratio} 0.9-2.4 [facility] Serum or plasma calcium amanda urement (mass/volume)Ordered By: Marycruz Yen on 09-27-2023 Calcium [Mass/Vol] 8.7 mg/dL 8.5-10.1 [facility] Serum or plasma creatinine m easurement (mass/volume)Ordered By: Marycruz Yen on 09-27-2023 Creatinine [Mass/Vol] 1.60 mg/dL 0.70-1.30 [facility] Serum or plasma urea nitroge n measurement (mass/volume)Ordered By: Marycruz Yen on 09-27-2023 Urea nitrogen [Mass/Vol] 25 mg/dL 7-18 [facility] Serum or plasma uric acid me asurement (mass/volume)Ordered By: Marycruz Yen on 09-27-2023 Urate [Mass/Vol] 5.3 mg/dL 3.5-7.2 [facility] Thin prep Papanicolaou smear with manual screeningOrdered By: Marycruz Yen on 09-27-2023 Thin prep Papanicolaou smear with manual screening 30 U/L 15-37 [facility] Thin prep Papanicolaou smear with manual screening 6 5-15 [facility] Absolute lymphocyte countOrd ered By: Boris Bojorquez on 09-24-2023 Lymphocytes Auto (Unsp spec) [#/Vol] 1.09 10*3/uL 0.83-4.51 [facility] Basophil percentageOrdered B y: Boris Bojorquez on 09-24-2023 Basophil percentage 261 mg/dL 74-106 [facility] Basophil percentage 140 mmol/L 136-145 [facility] Basophil percentage 3.8 mmol/L 3.5-5.1 [facility] Basophil percentage 107 mmol/L 98-107 [facility] Basophils (Bld) [#/Vol] 5.0 10*3/uL 4.4-11.0 [facility] Basophils (Bld) [#/Vol] 3.6 10*3/uL 2.0-7.7 [facility] Basophils/100 WBC (Bld) 71.5 % 47-70 [facility] Basophils/100 WBC (Bld) 0.0 % 0-5 [facility] Basophils/100 WBC (Bld) 0.2 % 0-1 [facility] Blood erythrocytes count (nu mber/volume)Ordered By: Boris Bojorquez on 09-24-2023 RBC (Bld) [#/Vol] 3.74 10*6/uL 4.6-6.2 [facility] Blood hemoglobin measurement (mass/volume)Ordered By: Boris Bojorquez on 09-24-2023 Hemoglobin (Bld) [Mass/Vol] 11.2 g/dL 13.0-16.5 [facility] Blood lymphocytes/100 leukoc ytesOrdered By: Boris Bojorquez on 09-24-2023 Lymphocytes/100 WBC (Bld) 21.9 % 19-41 [facility] Blood monocytes/100 leukocyt esOrdered By: Boris Bojorquez on 09-24-2023 Monocytes/100 WBC (Bld) 5.6 % 0-10 [facility] Blood platelet mean volumeOr dered By: Boris Bojorquez on 09-24-2023 Platelet mean volume (Bld) [Entitic vol] 10.7 fL 6.2-12.0 [facility] Determination of erythrocyte mean corpuscular volume (MCV)Ordered By: Boris Bojorquez on 09-24-2023 MCV (RBC) [Entitic vol] 93.6 fL 80-94 [facility] Glucose Glucometer (BldC) [M ass/Vol]Ordered By: Boris Bojorquez on 09-24-2023 Glucose [Mass/Vol] 242 mg/dL 74-106 [facility] Hematocrit Auto (Bld) [Volum e fraction]Ordered By: Boris Bojorquez on 09-24-2023 Hematocrit (Bld) [Volume fraction] 35.0 % 40-54 [facility] MCHC Auto (RBC) [Mass/Vol]Or dered By: Boris Bojorquez on 09-24-2023 MCHC (RBC) [Mass/Vol] 32.0 g/dL 32-36 [facility] No Panel InformationOrdered By: Boris Bojorquez on 09-24-2023 29.9 pg 27.0-32.0 [facility] 15.0 % 11.6-14.6 [facility] 51.7 fl 35.1-43.9 [facility] 0.800 % 0.0-0.9 [facility] 0 % 0-5 [facility] 46 mL/min >60 [facility] 56 mL/min >60 [facility] 36.13 ml/min [facility] 20.6 RATIO 10-20 [facility] 26.0 mmol/L 21.0-32.0 [facility] Platelets bldOrdered By: Didier Bojorquez on 09-24-2023 Platelets (Bld) [#/Vol] 124 10*3/uL 150-450 [facility] Serum or plasma calcium amanda urement (mass/volume)Ordered By: Boris Bojorquez on 09-24-2023 Calcium [Mass/Vol] 8.9 mg/dL 8.5-10.1 [facility] Serum or plasma creatinine m easurement (mass/volume)Ordered By: Boris Bojorquez on 09-24-2023 Creatinine [Mass/Vol] 1.55 mg/dL 0.70-1.30 [facility] Serum or plasma urea nitroge n measurement (mass/volume)Ordered By: Boris Bojorquez on 09-24-2023 Urea nitrogen [Mass/Vol] 32 mg/dL 7-18 [facility] Thin prep Papanicolaou smear with manual screeningOrdered By: Boris Bojorquez on 09-24-2023 Thin prep Papanicolaou smear with manual screening 7 5-15 [facility] Bacteria identified Respirat ory culture Nom (Unsp spec)Ordered By: Drake Mason on 09-20-2023 Microbial respiratory culture Pseudomonas aeruginosa [facility] Microbial respiratory culture Pseudomonas aeruginosa [facility] Basophil percentageOrdered B y: Jonathan Lopez on 09-20-2023 Basophil percentage 176 mg/dL 74-106 [facility] Basophil percentage 141 mmol/L 136-145 [facility] Basophil percentage 3.5 mmol/L 3.5-5.1 [facility] Basophil percentage 109 mmol/L 98-107 [facility] Basophils (Bld) [#/Vol] 5.8 10*3/uL 4.4-11.0 [facility] Blood erythrocytes count (nu mber/volume)Ordered By: Jonathan Lopez on 09-20-2023 RBC (Bld) [#/Vol] 3.72 10*6/uL 4.6-6.2 [facility] Blood hemoglobin measurement (mass/volume)Ordered By: Jonathan Lopez on 09-20-2023 Hemoglobin (Bld) [Mass/Vol] 11.3 g/dL 13.0-16.5 [facility] Blood platelet mean volumeOr dered By: Jonathan Lopez on 09-20-2023 Platelet mean volume (Bld) [Entitic vol] 10.6 fL 6.2-12.0 [facility] Determination of erythrocyte mean corpuscular volume (MCV)Ordered By: Jonathan Lopez on 09-20-2023 MCV (RBC) [Entitic vol] 90.9 fL 80-94 [facility] Gram stain for investigation of transfusion reactionOrdered By: Drake Mason on 09-20-2023 Microscopic observation Gram stain Nom (Unsp spec) [facility] Microscopic observation Gram stain Nom (Unsp spec) [facility] Hematocrit Auto (Bld) [Volum e fraction]Ordered By: Jonathan Lopez on 09-20-2023 Hematocrit (Bld) [Volume fraction] 33.8 % 40-54 [facility] MCHC Auto (RBC) [Mass/Vol]Or dered By: Jonathan Lopez on 09-20-2023 MCHC (RBC) [Mass/Vol] 33.4 g/dL 32-36 [facility] No Panel InformationOrdered By: Jonathan Lopez on 09-20-2023 30.4 pg 27.0-32.0 [facility] 15.1 % 11.6-14.6 [facility] 50.2 fl 35.1-43.9 [facility] 53 mL/min >60 [facility] 64 mL/min >60 [facility] 40.88 ml/min [facility] 11.7 RATIO 10-20 [facility] 27.0 mmol/L 21.0-32.0 [facility] Platelets bldOrdered By: Luke Lopez on 09-20-2023 Platelets (Bld) [#/Vol] 123 10*3/uL 150-450 [facility] RSV Ag EIAOrdered By: Jonathan campbell on 09-20-2023 RSV Ag Immune stain Ql (Tiss) [facility] Serum or plasma calcium amanda urement (mass/volume)Ordered By: Jonathan Lopez on 09-20-2023 Calcium [Mass/Vol] 8.7 mg/dL 8.5-10.1 [facility] Serum or plasma creatinine m easurement (mass/volume)Ordered By: Jonathan Lopez on 09-20-2023 Creatinine [Mass/Vol] 1.37 mg/dL 0.70-1.30 [facility] Serum or plasma urea nitroge n measurement (mass/volume)Ordered By: Jonathan Lopez on 09-20-2023 Urea nitrogen [Mass/Vol] 16 mg/dL 7-18 [facility] Thin prep Papanicolaou smear with manual screeningOrdered By: Jonathan Lopez on 09-20-2023 Thin prep Papanicolaou smear with manual screening 5 5-15 [facility] Urine Legionella pneumophila antigen detectionOrdered By: Drake Mason on 09-20-2023 L. pneumophila Ag Ql (U) [facility] L. pneumophila Ag Ql (U) [facility] Basophil percentageOrdered B y: Juany Bellamy on 09-16-2023 Basophil percentage 2.4 mg/dL 2.5-4.9 [facility] Basophil percentage 170 mg/dL 74-106 [facility] Basophil percentage 140 mmol/L 136-145 [facility] Basophil percentage 3.6 mmol/L 3.5-5.1 [facility] Basophil percentage 107 mmol/L 98-107 [facility] Chloride [Moles/Vol] 107 mmol/L 98-107 [facility] Glucose [Mass/Vol] 170 mg/dL 74-106 [facility] Comment on above: Fasting Glucose resu lt greater than or equal to 126 mg/dL suggests DIABETES MELLITUS per A.D.A. criteria. Potassium [Moles/Vol] 3.6 mmol/L 3.5-5.1 [facility] Sodium [Moles/Vol] 140 mmol/L 136-145 [facility] Laboratory - Chemistry and C hemistry - challengeOrdered By: Juany Bellamy on 09-16-2023 CO2 [Moles/Vol] 27.0 mmol/L 21.0-32.0 [facility] Urea nitrogen/Creatinine [Mass ratio] 14.6 mg/mg 07-19 [facility] No Panel InformationOrdered By: Juany Bellamy on 09-16-2023 Estimated GFR (MDRD) Amer 69 mL/min >60 [facility] Comment on above: GFR Calc Estimated GFR (MDRD) Non-Af Amer 57 mL/min >60 [facility] Comment on above: Non- GFR Calc 57 mL/min >60 [facility] 69 mL/min >60 [facility] 14.6 RATIO 07-19 [facility] 27.0 mmol/L 21.0-32.0 [facility] Serum or plasma albumin amanda urement (mass/volume)Ordered By: Juany Bellamy on 09-16-2023 Albumin [Mass/Vol] 2.7 g/dL 3.2-5.0 [facility] Serum or plasma calcium amanda urement (mass/volume)Ordered By: Juany Bellamy on 09-16-2023 Calcium [Mass/Vol] 7.9 mg/dL 8.5-10.1 [facility] Serum or plasma creatinine m easurement (mass/volume)Ordered By: Juany Bellamy on 09-16-2023 Creatinine [Mass/Vol] 1.30 mg/dL 0.70-1.30 [facility] Comment on above: The validity of the calculated GFR & GFRAA in patients over 70 years has not been determined. Clinical correlation is essential. Serum or plasma urea nitroge n measurement (mass/volume)Ordered By: Juany Bellamy on 09-16-2023 Urea nitrogen [Mass/Vol] 19 mg/dL 04-16 [facility] Urine creatinine measurement (mass/volume)Ordered By: Juany Bellamy on 09-16-2023 Creatinine (U) [Mass/Vol] 111.00 mg/dL NO RANGE EST. [facility] Urine protein measurement (m ass/volume)Ordered By: Juany Bellamy on 09-16-2023 Protein (U) [Mass/Vol] 63.7 mg/dL 0.0-11.8 [facility] Urine protein/creatinine mas s ratioOrdered By: Juany Bellamy on 09-16-2023 Protein/Creatinine (U) [Mass ratio] 574 mg/g CRE 0-200 [facility] Absolute lymphocyte countOrd ered By: Laureano Huertadevorahsosa on 09-05-2023 Lymphocytes Auto (Unsp spec) [#/Vol] 1.22 10*3/uL 0.83-4.51 [facility] Basophil percentageOrdered B y: Laureano Lima on 09-05-2023 Basophil percentage 4.8 mg/dL 2.5-4.9 [facility] Basophil percentage 199 mg/dL 74-106 [facility] Basophil percentage 139 mmol/L 136-145 [facility] Basophil percentage 3.7 mmol/L 3.5-5.1 [facility] Basophil percentage 105 mmol/L 98-107 [facility] Basophils (Bld) [#/Vol] 7.3 10*3/uL 4.4-11.0 [facility] Basophils (Bld) [#/Vol] 5.7 10*3/uL 2.0-7.7 [facility] Basophils/100 WBC (Bld) 0.1 % 0-1 [facility] Basophils/100 WBC (Bld) 77.9 % 47-70 [facility] Basophils/100 WBC (Bld) 0.0 % 0-5 [facility] Chloride [Moles/Vol] 105 mmol/L 98-107 [facility] Eosinophils/100 WBC (Bld) 0.0 % 0-5 [facility] Glucose [Mass/Vol] 199 mg/dL 74-106 [facility] Comment on above: Fasting Glucose resu lt greater than or equal to 126 mg/dL suggests DIABETES MELLITUS per A.D.A. criteria. Neutrophils (Bld) [#/Vol] 5.7 10*3/uL 2.0-7.7 [facility] Neutrophils/100 WBC (Bld) 77.9 % 47-70 [facility] Potassium [Moles/Vol] 3.7 mmol/L 3.5-5.1 [facility] Comment on above: Slight Hemolysis, Re sult may be falsely increased. Sodium [Moles/Vol] 139 mmol/L 136-145 [facility] WBC (Bld) [#/Vol] 7.3 10*3/uL 4.4-11.0 [facility] Blood erythrocytes count (nu mber/volume)Ordered By: Laureano Lima on 09-05-2023 RBC (Bld) [#/Vol] 4.22 10*6/uL 4.6-6.2 [facility] Blood hemoglobin measurement (mass/volume)Ordered By: Laureano Lima on 09-05-2023 Hemoglobin (Bld) [Mass/Vol] 12.7 g/dL 13.0-16.5 [facility] Blood lymphocytes/100 leukoc ytesOrdered By: Laureano Lima on 09-05-2023 Lymphocytes/100 WBC (Bld) 16.7 % 19-41 [facility] Blood monocytes/100 leukocyt esOrdered By: Laureano Lima on 09-05-2023 Monocytes/100 WBC (Bld) 4.6 % 0-10 [facility] Blood platelet mean volumeOr dered By: Laureano Lima on 09-05-2023 Platelet mean volume (Bld) [Entitic vol] 10.9 fL 6.2-12.0 [facility] Determination of erythrocyte mean corpuscular volume (MCV)Ordered By: Laureano Lima on 09-05-2023 MCV (RBC) [Entitic vol] 91.0 fL 80-94 [facility] Glucose Glucometer (BldC) [M ass/Vol]Ordered By: Laureano Lima on 09-05-2023 Glucose [Mass/Vol] 188 mg/dL 74-106 [facility] Comment on above: MANAGEMENT OF PATIEN T CARE PER NURSING PROTOCOL Hematocrit Auto (Bld) [Volum e fraction]Ordered By: Laureano Lima on 09-05-2023 Hematocrit (Bld) [Volume fraction] 38.4 % 40-54 [facility] Laboratory - Chemistry and C hemistry - challengeOrdered By: Laureano Lima on 09-05-2023 CO2 [Moles/Vol] 27.0 mmol/L 21.0-32.0 [facility] Magnesium [Mass/Vol] 2.1 mg/dL 1.6-2.6 [facility] Comment on above: Slight Hemolysis, Re sult may be falsely increased. Urea nitrogen/Creatinine [Mass ratio] 23.4 mg/mg 10-20 [facility] Laboratory - Hematology and Cell countsOrdered By: Laureano Lima on 09-05-2023 Erythrocyte distribution width (RBC) [Entitic vol] 49.4 fL 35.1-43.9 [facility] Erythrocyte distribution width (RBC) [Ratio] 14.8 % 11.6-14.6 [facility] Immature granulocytes/100 WBC (Bld) 0.700 % 0.0-0.9 [facility] Comment on above: IG% - Immature Granu locytes (promyelocytes, myelocytes and metamyelocytes) > 1% indicates that a LEFT SHIFT is Present. MCH (RBC) [Entitic mass] 30.1 pg 27.0-32.0 [facility] Nucleated RBC/100 WBC (Bld) [Ratio] 0 % 0-5 [facility] MCHC Auto (RBC) [Mass/Vol]Or dered By: Laureano Lima on 09-05-2023 MCHC (RBC) [Mass/Vol] 33.1 g/dL 32-36 [facility] No Panel InformationOrdered By: Laureano Lima on 09-05-2023 Estimated Creatinine Clearance Calc 36.36 ml/min [facility] Estimated GFR (MDRD) Amer 56 mL/min >60 [facility] Comment on above: GFR Calc Estimated GFR (MDRD) Non-Af Amer 47 mL/min >60 [facility] Comment on above: Non- GFR Calc 30.1 pg 27.0-32.0 [facility] 14.8 % 11.6-14.6 [facility] 49.4 fl 35.1-43.9 [facility] 0.700 % 0.0-0.9 [facility] 0 % 0-5 [facility] 47 mL/min >60 [facility] 56 mL/min >60 [facility] 36.36 ml/min [facility] 23.4 RATIO - [facility] 2.1 mg/dL 1.6-2.6 [facility] 27.0 mmol/L 21.0-32.0 [facility] Platelets bldOrdered By: Linwood Lima on 09-05-2023 Platelets (Bld) [#/Vol] 192 10*3/uL 150-450 [facility] Serum or plasma calcium amanda urement (mass/volume)Ordered By: Laureano Lima on 09-05-2023 Calcium [Mass/Vol] 8.6 mg/dL 8.5-10.1 [facility] Serum or plasma creatinine m easurement (mass/volume)Ordered By: Laureano Lima on 09-05-2023 Creatinine [Mass/Vol] 1.54 mg/dL 0.70-1.30 [facility] Comment on above: The validity of the calculated GFR & GFRAA in patients over 70 years has not been determined. Clinical correlation is essential. Serum or plasma urea nitroge n measurement (mass/volume)Ordered By: Laureano Lima on 09-05-2023 Urea nitrogen [Mass/Vol] 36 mg/dL 7-18 [facility] Thin prep Papanicolaou smear with manual screeningOrdered By: Laureano Lima on 09-05-2023 Thin prep Papanicolaou smear with manual screening 7 5-15 [facility] Assessment of wrist artery p atency prior to arterial punctureOrdered By: Mauricio Soto on 09-04-2023 Arterial patency Wrist artery --pre arterial puncture Positive [facility] Base excessOrdered By: Margaret Soto on 09-04-2023 Base excess Calc (BldV) [Moles/Vol] 2 mmol/L -2-2 [facility] Basophil percentageOrdered B y: Mauricio Soto on 09-04-2023 Basophil percentage 26.1 mmol/L 22-26 [facility] Basophils/100 WBC (Bld) 89 % 95-99 [facility] CO2 (BldA) [Partial pressure ]Ordered By: Mauricio Soto on 09-04-2023 CO2 (Bld) [Partial pressure] 38.2 mm[Hg] 35-45 [facility] No Panel InformationOrdered By: Mauricio Soto on 09-04-2023 Blood Gas Oxygen Percent 21.0 [facility] Blood Gas Sample Site L Radial [facility] Blood Gas Specimen Type ART [facility] Blood Gas Total CO2 27 mmol/L [facility] Blood Gas Vent Mode Not entered [facility] Oxygen Delivery Device Room Air [facility] ART [facility] L Radial [facility] Not entered [facility] Room Air [facility] 21.0 [facility] 27 mmol/L [facility] Oxygen (BldA) [Partial press ure]Ordered By: Mauricio Soto on 09-04-2023 Oxygen (Bld) [Partial pressure] 55 mmHG 75-100 [facility] Whole blood hemoglobin A1c/t otal hemoglobin ratio (mass fraction)Ordered By: Laureano Jennings on 09-04-2023 HbA1c (Bld) [Mass fraction] 6.5 % 3.8-5.6 [facility] Comment on above: Normal < 5.7 % Predi abetic 5.7 - 6.4 % Diabetic >or= 6.5 % Please note range changes. pH measurementOrdered By: Zunilda Soto on 09-04-2023 pH (Unsp spec) 7.44 [pH] 7.35-7.45 [facility] Absolute lymphocyte countOrd ered By: Mauricio Soto on 09-03-2023 Lymphocytes Auto (Unsp spec) [#/Vol] 1.35 10*3/uL 0.83-4.51 [facility] Basophil percentageOrdered B y: Mauricio Soto on 09-03-2023 Basophils/100 WBC (Bld) 0.4 % 0-1 [facility] Chloride [Moles/Vol] 105 mmol/L 98-107 [facility] Eosinophils/100 WBC (Bld) 0.0 % 0-5 [facility] Glucose [Mass/Vol] 184 mg/dL 74-106 [facility] Comment on above: Fasting Glucose resu lt greater than or equal to 126 mg/dL suggests DIABETES MELLITUS per A.D.A. criteria. Neutrophils (Bld) [#/Vol] 3.2 10*3/uL 2.0-7.7 [facility] Neutrophils/100 WBC (Bld) 60.4 % 47-70 [facility] Potassium [Moles/Vol] 3.7 mmol/L 3.5-5.1 [facility] Sodium [Moles/Vol] 138 mmol/L 136-145 [facility] WBC (Bld) [#/Vol] 5.3 10*3/uL 4.4-11.0 [facility] Blood erythrocytes count (nu mber/volume)Ordered By: Mauricio Soto on 09-03-2023 RBC (Bld) [#/Vol] 4.25 10*6/uL 4.6-6.2 [facility] Blood hemoglobin measurement (mass/volume)Ordered By: Mauricio Soto on 09-03-2023 Hemoglobin (Bld) [Mass/Vol] 12.9 g/dL 13.0-16.5 [facility] Blood lymphocytes/100 leukoc ytesOrdered By: Mauricio Soto on 09-03-2023 Lymphocytes/100 WBC (Bld) 25.6 % 19-41 [facility] Blood monocytes/100 leukocyt esOrdered By: Mauricio Soto on 09-03-2023 Monocytes/100 WBC (Bld) 11.9 % 0-10 [facility] Blood platelet mean volumeOr dered By: Mauricio Soto on 09-03-2023 Platelet mean volume (Bld) [Entitic vol] 11.1 fL 6.2-12.0 [facility] Determination of erythrocyte mean corpuscular volume (MCV)Ordered By: Mauricio Soto on 09-03-2023 MCV (RBC) [Entitic vol] 92.0 fL 80-94 [facility] Hematocrit Auto (Bld) [Volum e fraction]Ordered By: Mauricio Soto on 09-03-2023 Hematocrit (Bld) [Volume fraction] 39.1 % 40-54 [facility] Influenza virus A and B and SARS-CoV-2 (COVID-19) Ag panel - Upper respiratory specimOrdered By: Mauricio Soto on 09-03-2023 SARS-CoV-2 & FLU Antigen (Rapid) SARS-CoV-2 (COVID 19) [facility] Influenza virus A and B and SARS-CoV-2 (COVID-19) Ag panel - Upper respiratory specim SARS-CoV-2 (COVID 19) [facility] Laboratory - Chemistry and C hemistry - challengeOrdered By: Mauricio Soto on 09-03-2023 CO2 [Moles/Vol] 26.0 mmol/L 21.0-32.0 [facility] Magnesium [Mass/Vol] 2.2 mg/dL 1.6-2.6 [facility] Natriuretic peptide B (Bld) [Mass/Vol] 65.2 pg/mL 0-100 [facility] Urea nitrogen/Creatinine [Mass ratio] 15.7 mg/mg 10-20 [facility] Laboratory - Hematology and Cell countsOrdered By: Mauricio Soto on 09-03-2023 Erythrocyte distribution width (RBC) [Entitic vol] 50.4 fL 35.1-43.9 [facility] Erythrocyte distribution width (RBC) [Ratio] 14.8 % 11.6-14.6 [facility] Immature granulocytes/100 WBC (Bld) 1.700 % 0.0-0.9 [facility] Comment on above: IG% - Immature Granu locytes (promyelocytes, myelocytes and metamyelocytes) > 1% indicates that a LEFT SHIFT is Present. MCH (RBC) [Entitic mass] 30.4 pg 27.0-32.0 [facility] Nucleated RBC/100 WBC (Bld) [Ratio] 0 % 0-5 [facility] MCHC Auto (RBC) [Mass/Vol]Or dered By: Mauricio Soto on 09-03-2023 MCHC (RBC) [Mass/Vol] 33.0 g/dL 32-36 [facility] No Panel InformationOrdered By: Mauricio Soto on 09-03-2023 Estimated Creatinine Clearance Calc 35.33 ml/min [facility] Estimated GFR (MDRD) Amer 57 mL/min >60 [facility] Comment on above: GFR Calc Estimated GFR (MDRD) Non-Af Amer 47 mL/min >60 [facility] Comment on above: Non- GFR Calc 65.2 pg/mL 0-100 [facility] Platelets bldOrdered By: Mina Soto on 09-03-2023 Platelets (Bld) [#/Vol] 191 10*3/uL 150-450 [facility] Serum or plasma calcium amanda urement (mass/volume)Ordered By: Mauricio Soto on 09-03-2023 Calcium [Mass/Vol] 8.8 mg/dL 8.5-10.1 [facility] Serum or plasma creatinine m easurement (mass/volume)Ordered By: Mauricio Soto on 09-03-2023 Creatinine [Mass/Vol] 1.53 mg/dL 0.70-1.30 [facility] Comment on above: The validity of the calculated GFR & GFRAA in patients over 70 years has not been determined. Clinical correlation is essential. Serum or plasma urea nitroge n measurement (mass/volume)Ordered By: Mauricio Soto on 09-03-2023 Urea nitrogen [Mass/Vol] 24 mg/dL 7-18 [facility] Thin prep Papanicolaou smear with manual screeningOrdered By: Mauricio Soto on 09-03-2023 Thin prep Papanicolaou smear with manual screening 7 5-15 [facility] Upper respiratory specimen i nfluenza A virus, influenza B virus, and severe acute resOrdered By: Mauricio Soto on 09-03-2023 Upper respiratory specimen influenza A virus, influenza B virus, and severe acute res SARS-CoV-2 (COVID 19) [facility] Basophil percentageOrdered B y: Keo Montemayor on 08-29-2023 Basophil percentage < 1.0 mg/dL 0.70-1.30 [facility] No Panel InformationOrdered By: Keo Montemayor on 08-29-2023 Bedside Estimated GFR (eGFR) > 60.0000 mL/min >60 [facility] > 60.0000 mL/min >60 [facility] Glucose Glucometer (BldC) [M ass/Vol]Ordered By: Surinder Larson on 08-07-2023 Glucose [Mass/Vol] 110 mg/dL 74-106 [facility] Comment on above: MANAGEMENT OF PATIEN T CARE PER NURSING PROTOCOL Basophil percentageOrdered B y: Surinder Larson on 05-30-2023 Basophil percentage 1.3 mg/dL 0.70-1.30 [facility] Creatinine [Mass/Vol] 1.3 mg/dL 0.70-1.30 [facility] Laboratory - Chemistry and C hemistry - challengeOrdered By: Surinder Larson on 05-30-2023 GFR/1.73 sq M.predicted among non-blacks MDRD (S/P/Bld) [Vol rate/Area] 56.0000 mL/min/{1.73_m2} >60 [facility] No Panel InformationOrdered By: Surinder Larson on 05-30-2023 56.0000 mL/min >60 [facility] No Panel InformationOrdered By: Surinder Larson on 04-16-2023 Prostate Specific Antigen Total 11.30 ng/mL 0.0-4.0 [facility] Comment on above: This test was perfor med using the TPSA assay method for the[employer] chemistry system. Values obtained with differentassay methods cannot be used interchangably.When changing PSA assays in the course of monitoring apatient, additional sequential testing should be carriedout to confirm baseline values. Absolute lymphocyte countOrd ered By: Marycruz Yen on 04-01-2023 Lymphocytes Auto (Unsp spec) [#/Vol] 1.48 10*3/uL 0.83-4.51 [facility] Basophil percentageOrdered B y: Marycruz Yen on 04-01-2023 Basophils/100 WBC (Bld) 0.1 % 0-1 [facility] Bilirubin [Mass/Vol] 0.30 mg/dL 0.20-1.00 [facility] Comment on above: For patients on eltr ombopag therapy, use of Dimension [place] TBIL is not recommended. Chloride [Moles/Vol] 109 mmol/L 98-107 [facility] Eosinophils/100 WBC (Bld) 2.4 % 0-5 [facility] Glucose [Mass/Vol] 181 mg/dL 74-106 [facility] Comment on above: Fasting Glucose resu lt greater than or equal to 126 mg/dL suggests DIABETES MELLITUS per A.D.A. criteria. Neutrophils (Bld) [#/Vol] 4.8 10*3/uL 2.0-7.7 [facility] Neutrophils/100 WBC (Bld) 66.9 % 47-70 [facility] Potassium [Moles/Vol] 3.7 mmol/L 3.5-5.1 [facility] Protein [Mass/Vol] 6.5 g/dL 6.4-8.2 [facility] Sodium [Moles/Vol] 140 mmol/L 136-145 [facility] WBC (Bld) [#/Vol] 7.1 10*3/uL 4.4-11.0 [facility] Blood erythrocytes count (nu mber/volume)Ordered By: Marycruz Yen on 04-01-2023 RBC (Bld) [#/Vol] 4.27 10*6/uL 4.6-6.2 [facility] Blood hemoglobin measurement (mass/volume)Ordered By: Marycruz Yen on 04-01-2023 Hemoglobin (Bld) [Mass/Vol] 13.0 g/dL 13.0-16.5 [facility] Blood lymphocytes/100 leukoc ytesOrdered By: Marycruz Yen on 04-01-2023 Lymphocytes/100 WBC (Bld) 20.8 % 19-41 [facility] Blood monocytes/100 leukocyt esOrdered By: Marycruz Yen on 04-01-2023 Monocytes/100 WBC (Bld) 9.4 % 0-10 [facility] Blood platelet mean volumeOr dered By: Marycruz Yen on 04-01-2023 Platelet mean volume (Bld) [Entitic vol] 11.5 fL 6.2-12.0 [facility] Determination of erythrocyte mean corpuscular volume (MCV)Ordered By: Marycruz Yen on 04-01-2023 MCV (RBC) [Entitic vol] 94.8 fL 80-94 [facility] Hematocrit Auto (Bld) [Volum e fraction]Ordered By: Marycruz Farshad on 04-01-2023 Hematocrit (Bld) [Volume fraction] 40.5 % 40-54 [facility] Laboratory - Chemistry and C hemistry - challengeOrdered By: Marycruzjulisa Yen on 04-01-2023 ALP [Catalytic activity/Vol] 48 U/L 45-117 [facility] ALT [Catalytic activity/Vol] 69 U/L 16-61 [facility] CO2 [Moles/Vol] 26.0 mmol/L 21.0-32.0 [facility] Globulin (S) [Mass/Vol] 3.6 g/dL 2.2-4.2 [facility] Urea nitrogen/Creatinine [Mass ratio] 17.7 mg/mg 10-20 [facility] Laboratory - Hematology and Cell countsOrdered By: Marycruz Yen on 04-01-2023 Erythrocyte distribution width (RBC) [Entitic vol] 55.5 fL 35.1-43.9 [facility] Erythrocyte distribution width (RBC) [Ratio] 16.0 % 11.6-14.6 [facility] Immature granulocytes/100 WBC (Bld) 0.400 % 0.0-0.9 [facility] Comment on above: IG% - Immature Granu locytes (promyelocytes, myelocytes and metamyelocytes) > 1% indicates that a LEFT SHIFT is Present. MCH (RBC) [Entitic mass] 30.4 pg 27.0-32.0 [facility] Nucleated RBC/100 WBC (Bld) [Ratio] 0 % 0-5 [facility] MCHC Auto (RBC) [Mass/Vol]Or dered By: Marycruz Yen on 04-01-2023 MCHC (RBC) [Mass/Vol] 32.1 g/dL 32-36 [facility] No Panel InformationOrdered By: Marycruz Yen on 04-01-2023 Estimated GFR (MDRD) Amer 60 mL/min >60 [facility] Comment on above: GFR Calc Estimated GFR (MDRD) Non-Af Amer 49 mL/min >60 [facility] Comment on above: Non- GFR Calc Platelets bldOrdered By: Jamir Yen on 04-01-2023 Platelets (Bld) [#/Vol] 150 10*3/uL 150-450 [facility] Serum or plasma albumin amanda urement (mass/volume)Ordered By: Marycruz Yen on 04-01-2023 Albumin [Mass/Vol] 2.9 g/dL 3.2-5.0 [facility] Serum or plasma albumin/glob ulin mass ratioOrdered By: Marycruz Yen on 04-01-2023 Albumin/Globulin [Mass ratio] 0.8 {ratio} 0.9-2.4 [facility] Serum or plasma calcium amanda urement (mass/volume)Ordered By: Marycruz Yen on 04-01-2023 Calcium [Mass/Vol] 8.5 mg/dL 8.5-10.1 [facility] Serum or plasma creatinine m easurement (mass/volume)Ordered By: Marycruz Yen on 04-01-2023 Creatinine [Mass/Vol] 1.47 mg/dL 0.70-1.30 [facility] Comment on above: The validity of the calculated GFR & GFRAA in patients over 70 years has not been determined. Clinical correlation is essential. Serum or plasma urea nitroge n measurement (mass/volume)Ordered By: Marycruz Yen on 04-01-2023 Urea nitrogen [Mass/Vol] 26 mg/dL 7-18 [facility] Serum or plasma uric acid me asurement (mass/volume)Ordered By: Marycruz Yen on 04-01-2023 Urate [Mass/Vol] 5.0 mg/dL 3.5-7.2 [facility] Comment on above: The drugs N-Acetylcy steine and Metamizole may falsely depress this assay. Thin prep Papanicolaou smear with manual screeningOrdered By: Marycruz Yen on 04-01-2023 Thin prep Papanicolaou smear with manual screening 23 U/L 15-37 [facility] Thin prep Papanicolaou smear with manual screening 5 5-15 [facility] Absolute lymphocyte countOrd ered By: Dr. Bojorquez on 03-26-2023 Lymphocytes Auto (Unsp spec) [#/Vol] 1.79 10*3/uL 0.83-4.51 [facility] Basophil percentageOrdered B y: Dr. Bojorquez on 03-26-2023 Basophils/100 WBC (Bld) 0.1 % 0-1 [facility] Chloride [Moles/Vol] 109 mmol/L 98-107 [facility] Eosinophils/100 WBC (Bld) 0.0 % 0-5 [facility] Glucose [Mass/Vol] 151 mg/dL 74-106 [facility] Comment on above: Fasting Glucose resu lt greater than or equal to 126 mg/dL suggests DIABETES MELLITUS per A.D.A. criteria. Neutrophils (Bld) [#/Vol] 8.2 10*3/uL 2.0-7.7 [facility] Neutrophils/100 WBC (Bld) 76.0 % 47-70 [facility] Potassium [Moles/Vol] 3.3 mmol/L 3.5-5.1 [facility] Sodium [Moles/Vol] 141 mmol/L 136-145 [facility] WBC (Bld) [#/Vol] 10.7 10*3/uL 4.4-11.0 [facility] Blood erythrocytes count (nu mber/volume)Ordered By: Dr. Bojorquez on 03-26-2023 RBC (Bld) [#/Vol] 4.15 10*6/uL 4.6-6.2 [facility] Blood hemoglobin measurement (mass/volume)Ordered By: Dr. Bojorquez on 03-26-2023 Hemoglobin (Bld) [Mass/Vol] 12.8 g/dL 13.0-16.5 [facility] Blood lymphocytes/100 leukoc ytesOrdered By: Dr. Bojorquez on 03-26-2023 Lymphocytes/100 WBC (Bld) 16.7 % 19-41 [facility] Blood monocytes/100 leukocyt esOrdered By: Dr. Bojorquez on 03-26-2023 Monocytes/100 WBC (Bld) 6.8 % 0-10 [facility] Blood platelet mean volumeOr dered By: Dr. Bojorquez on 03-26-2023 Platelet mean volume (Bld) [Entitic vol] 10.0 fL 6.2-12.0 [facility] Determination of erythrocyte mean corpuscular volume (MCV)Ordered By: Dr. Bojorquez on 03-26-2023 MCV (RBC) [Entitic vol] 91.6 fL 80-94 [facility] Glucose Glucometer (BldC) [M ass/Vol]Ordered By: Dr. oBjorquez on 03-26-2023 Glucose [Mass/Vol] 185 mg/dL 74-106 [facility] Comment on above: MANAGEMENT OF PATIEN T CARE PER NURSING PROTOCOL Hematocrit Auto (Bld) [Volum e fraction]Ordered By: Dr. Bojorquez on 03-26-2023 Hematocrit (Bld) [Volume fraction] 38.0 % 40-54 [facility] Laboratory - Chemistry and C hemistry - challengeOrdered By: Dr. Bojorquez on 03-26-2023 CO2 [Moles/Vol] 26.0 mmol/L 21.0-32.0 [facility] Urea nitrogen/Creatinine [Mass ratio] 27.1 mg/mg 10-20 [facility] Laboratory - Hematology and Cell countsOrdered By: Dr. Bojorquez on 03-26-2023 Erythrocyte distribution width (RBC) [Entitic vol] 50.9 fL 35.1-43.9 [facility] Erythrocyte distribution width (RBC) [Ratio] 15.3 % 11.6-14.6 [facility] Immature granulocytes/100 WBC (Bld) 0.400 % 0.0-0.9 [facility] Comment on above: IG% - Immature Granu locytes (promyelocytes, myelocytes and metamyelocytes) > 1% indicates that a LEFT SHIFT is Present. MCH (RBC) [Entitic mass] 30.8 pg 27.0-32.0 [facility] Nucleated RBC/100 WBC (Bld) [Ratio] 0 % 0-5 [facility] MCHC Auto (RBC) [Mass/Vol]Or dered By: Dr. Bojorquez on 03-26-2023 MCHC (RBC) [Mass/Vol] 33.7 g/dL 32-36 [facility] No Panel InformationOrdered By: Dr. Bojorquez on 03-26-2023 Estimated Creatinine Clearance Calc 36.72 ml/min [facility] Estimated GFR (MDRD) Amer 56 mL/min >60 [facility] Comment on above: GFR Calc Estimated GFR (MDRD) Non-Af Amer 46 mL/min >60 [facility] Comment on above: Non- GFR Calc Platelets bldOrdered By: Dr. Bojorquez on 03-26-2023 Platelets (Bld) [#/Vol] 182 10*3/uL 150-450 [facility] Serum or plasma calcium amanda urement (mass/volume)Ordered By: Dr. Bojorquez on 03-26-2023 Calcium [Mass/Vol] 8.5 mg/dL 8.5-10.1 [facility] Serum or plasma creatinine m easurement (mass/volume)Ordered By: Dr. Bojorquez on 03-26-2023 Creatinine [Mass/Vol] 1.55 mg/dL 0.70-1.30 [facility] Comment on above: The validity of the calculated GFR & GFRAA in patients over 70 years has not been determined. Clinical correlation is essential. Serum or plasma urea nitroge n measurement (mass/volume)Ordered By: Dr. Bojorquez on 03-26-2023 Urea nitrogen [Mass/Vol] 42 mg/dL 7-18 [facility] Thin prep Papanicolaou smear with manual screeningOrdered By: Dr. Bojorquez on 03-26-2023 Thin prep Papanicolaou smear with manual screening 6 5-15 [facility] Vancomycin troughOrdered By: Dr. Ferreira on 03-23-2023 Vancomycin trough [Mass/Vol] 14.3 ug/mL 5.0-15.0 [facility] Comment on above: VANCOMYCIN STANDARED DRUG THERAPY TROUGH LEVEL: 5.0 - 15.0 mg/L VANCOMYCIN HIGH INTENSITY THERAPY TROUGH LEVEL: 15.0 - 20.0 mg/L High Intensity therapy recommended for serious lifethreatening infections include:- Bjfyjnfsfw-Edqrbbpjeiph-Kdycobfor (Ventilator/Healtcare Associated)-Sepsis PLEASE CONTACT PHARMACY SERVICES (#[id number]) FOR INTERPRETATIONOF RESULTS. Gram stain for investigation of transfusion reactionOrdered By: Dr. Ferreira on 03-22-2023 Microscopic observation Gram stain Nom (Unsp spec) [facility] No Panel InformationOrdered By: Dr. Ferreira on 03-22-2023 Methicillin-Resist S.aureus DNA PCR Negative Negative [facility] Respiratory pathogens detect ion panel by molecular detection methodOrdered By: Dr. Ferreira on 03-22-2023 Respiratory pathogens DNA and RNA panel IRINA+probe (Resp) [facility] Bacteria identified Respirat ory culture Nom (Unsp spec)Ordered By: Pedro Ferreira on 03-21-2023 Respiratory Culture Pseudomonas aeruginosa [facility] Gram stain for investigation of transfusion reactionOrdered By: Pedro Ferreira on 03-21-2023 Microscopic observation Gram stain Nom (Unsp spec) [facility] Laboratory - Chemistry and C hemistry - challengeOrdered By: Dr. Sullivan on 03-21-2023 Natriuretic peptide B (Bld) [Mass/Vol] 118.7 pg/mL 0-100 [facility] No Panel InformationOrdered By: Pedro Ferreira on 03-21-2023 Streptococcus pneumoniae Antigen (M [facility] No Panel InformationOrdered By: Dr. Sullivan on 03-21-2023 Troponin I High Sensitivity 22 pg/mL 3.0-78.0 [facility] Comment on above: Please Note: New Vira t Units and Gender Specific Reference Ranges. For more information see Policy Stat Procedure [place] High Sensitivity Troponin (TNIH) and attachments. No Panel InformationOrdered By: Dr. Ferreira on 03-21-2023 Streptococcus pneumoniae Antigen (M [facility] Respiratory pathogens detect ion panel by molecular detection methodOrdered By: Pedro Ferreira on 03-21-2023 Respiratory pathogens DNA and RNA panel IRINA+probe (Resp) [facility] Absolute lymphocyte countOrd ered By: Dr. Yen on 01-03-2023 Lymphocytes Auto (Unsp spec) [#/Vol] 2.62 10*3/uL 0.83-4.51 [facility] Basophil percentageOrdered B y: Dr. Yen on 01-03-2023 Basophils/100 WBC (Bld) 0.6 % 0-1 [facility] Bilirubin [Mass/Vol] 0.50 mg/dL 0.20-1.00 [facility] Comment on above: For patients on eltr ombopag therapy, use of Dimension [place] TBIL is not recommended. Chloride [Moles/Vol] 109 mmol/L 98-107 [facility] Eosinophils/100 WBC (Bld) 4.2 % 0-5 [facility] Glucose [Mass/Vol] 138 mg/dL 74-106 [facility] Comment on above: Fasting Glucose resu lt greater than or equal to 126 mg/dL suggests DIABETES MELLITUS per A.D.A. criteria. Neutrophils (Bld) [#/Vol] 2.9 10*3/uL 2.0-7.7 [facility] Neutrophils/100 WBC (Bld) 44.7 % 47-70 [facility] Potassium [Moles/Vol] 3.6 mmol/L 3.5-5.1 [facility] Protein [Mass/Vol] 7.0 g/dL 6.4-8.2 [facility] Sodium [Moles/Vol] 142 mmol/L 136-145 [facility] WBC (Bld) [#/Vol] 6.5 10*3/uL 4.4-11.0 [facility] Blood erythrocytes count (nu mber/volume)Ordered By: Dr. Yen on 01-03-2023 RBC (Bld) [#/Vol] 4.04 10*6/uL 4.6-6.2 [facility] Blood hemoglobin measurement (mass/volume)Ordered By: Dr. Yen on 01-03-2023 Hemoglobin (Bld) [Mass/Vol] 12.9 g/dL 13.0-16.5 [facility] Blood lymphocytes/100 leukoc ytesOrdered By: Dr. Yen on 01-03-2023 Lymphocytes/100 WBC (Bld) 40.5 % 19-41 [facility] Blood monocytes/100 leukocyt esOrdered By: Dr. Yen on 01-03-2023 Monocytes/100 WBC (Bld) 9.7 % 0-10 [facility] Blood platelet mean volumeOr dered By: Dr. Yen on 01-03-2023 Platelet mean volume (Bld) [Entitic vol] 10.9 fL 6.2-12.0 [facility] Determination of erythrocyte mean corpuscular volume (MCV)Ordered By: Dr. Yen on 01-03-2023 MCV (RBC) [Entitic vol] 95.3 fL 80-94 [facility] Hematocrit Auto (Bld) [Volum e fraction]Ordered By: Dr. Yen on 01-03-2023 Hematocrit (Bld) [Volume fraction] 38.5 % 40-54 [facility] Laboratory - Chemistry and C hemistry - challengeOrdered By: Dr. Yen on 01-03-2023 ALP [Catalytic activity/Vol] 52 U/L 45-117 [facility] ALT [Catalytic activity/Vol] 39 U/L 16-61 [facility] CO2 [Moles/Vol] 26.0 mmol/L 21.0-32.0 [facility] Globulin (S) [Mass/Vol] 3.5 g/dL 2.2-4.2 [facility] Urea nitrogen/Creatinine [Mass ratio] 12.6 mg/mg 10-20 [facility] Laboratory - Hematology and Cell countsOrdered By: Dr. Yen on 01-03-2023 Erythrocyte distribution width (RBC) [Entitic vol] 56.0 fL 35.1-43.9 [facility] Erythrocyte distribution width (RBC) [Ratio] 15.9 % 11.6-14.6 [facility] Immature granulocytes/100 WBC (Bld) 0.300 % 0.0-0.9 [facility] Comment on above: IG% - Immature Granu locytes (promyelocytes, myelocytes and metamyelocytes) > 1% indicates that a LEFT SHIFT is Present. MCH (RBC) [Entitic mass] 31.9 pg 27.0-32.0 [facility] Nucleated RBC/100 WBC (Bld) [Ratio] 0 % 0-5 [facility] MCHC Auto (RBC) [Mass/Vol]Or dered By: Dr. Yen on 01-03-2023 MCHC (RBC) [Mass/Vol] 33.5 g/dL 32-36 [facility] No Panel InformationOrdered By: Dr. Yen on 01-03-2023 Estimated GFR (MDRD) Amer 54 mL/min >60 [facility] Comment on above: GFR Calc Estimated GFR (MDRD) Non-Af Amer 45 mL/min >60 [facility] Comment on above: Non- GFR Calc Platelets bldOrdered By: Dr. Yen on 01-03-2023 Platelets (Bld) [#/Vol] 174 10*3/uL 150-450 [facility] Serum or plasma albumin amanda urement (mass/volume)Ordered By: Dr. Yen on 01-03-2023 Albumin [Mass/Vol] 3.5 g/dL 3.2-5.0 [facility] Serum or plasma albumin/glob ulin mass ratioOrdered By: Dr. Yen on 01-03-2023 Albumin/Globulin [Mass ratio] 1.0 {ratio} 0.9-2.4 [facility] Serum or plasma calcium amanda urement (mass/volume)Ordered By: Dr. Yen on 01-03-2023 Calcium [Mass/Vol] 8.8 mg/dL 8.5-10.1 [facility] Serum or plasma creatinine m easurement (mass/volume)Ordered By: Dr. Yen on 01-03-2023 Creatinine [Mass/Vol] 1.59 mg/dL 0.70-1.30 [facility] Comment on above: The validity of the calculated GFR & GFRAA in patients over 70 years has not been determined. Clinical correlation is essential. Serum or plasma urea nitroge n measurement (mass/volume)Ordered By: Dr. Yen on 01-03-2023 Urea nitrogen [Mass/Vol] 20 mg/dL 7-18 [facility] Serum or plasma uric acid me asurement (mass/volume)Ordered By: Dr. Yen on 01-03-2023 Urate [Mass/Vol] 7.8 mg/dL 3.5-7.2 [facility] Comment on above: The drugs N-Acetylcy steine and Metamizole may falsely depress this assay. Thin prep Papanicolaou smear with manual screeningOrdered By: Dr. Yen on 01-03-2023 Thin prep Papanicolaou smear with manual screening 32 U/L 15-37 [facility] Thin prep Papanicolaou smear with manual screening 7 5-15 [facility] Basophil percentageOrdered B y: Dr. Bellamy on 12-20-2022 Basophil percentage 196 mg/dL 74-106 [facility] Basophil percentage 2.2 mg/dL 2.5-4.9 [facility] Basophil percentage 145 mmol/L 136-145 [facility] Basophil percentage 3.7 mmol/L 3.5-5.1 [facility] Basophil percentage 109 mmol/L 98-107 [facility] Chloride [Moles/Vol] 109 mmol/L 98-107 [facility] Glucose [Mass/Vol] 196 mg/dL 74-106 [facility] Comment on above: Fasting Glucose resu lt greater than or equal to 126 mg/dL suggests DIABETES MELLITUS per A.D.A. criteria. Potassium [Moles/Vol] 3.7 mmol/L 3.5-5.1 [facility] Sodium [Moles/Vol] 145 mmol/L 136-145 [facility] Laboratory - Chemistry and C hemistry - challengeOrdered By: Dr. Bellamy on 12-20-2022 CO2 [Moles/Vol] 26.0 mmol/L 21.0-32.0 [facility] Urea nitrogen/Creatinine [Mass ratio] 13.1 mg/mg 10- [facility] No Panel InformationOrdered By: Dr. Bellamy on 12-20-2022 Estimated GFR (MDRD) Amer 61 mL/min >60 [facility] Comment on above: GFR Calc Estimated GFR (MDRD) Non-Af Amer 50 mL/min >60 [facility] Comment on above: Non- GFR Calc 50 mL/min >60 [facility] 61 mL/min >60 [facility] 13.1 RATIO 10-20 [facility] 26.0 mmol/L 21.0-32.0 [facility] Serum or plasma albumin amanda urement (mass/volume)Ordered By: Dr. Bellamy on 12-20-2022 Albumin [Mass/Vol] 3.3 g/dL 3.2-5.0 [facility] Serum or plasma calcium amanda urement (mass/volume)Ordered By: Dr. Bellamy on 12-20-2022 Calcium [Mass/Vol] 8.4 mg/dL 8.5-10.1 [facility] Serum or plasma creatinine m easurement (mass/volume)Ordered By: Dr. Bellamy on 12-20-2022 Creatinine [Mass/Vol] 1.45 mg/dL 0.70-1.30 [facility] Comment on above: The validity of the calculated GFR & GFRAA in patients over 70 years has not been determined. Clinical correlation is essential. Serum or plasma urea nitroge n measurement (mass/volume)Ordered By: Dr. Bellamy on 12-20-2022 Urea nitrogen [Mass/Vol] 19 mg/dL 7-18 [facility] Urine creatinine measurement (mass/volume)Ordered By: Dr. Bellamy on 12-20-2022 Creatinine (U) [Mass/Vol] 308.00 mg/dL NO RANGE EST. [facility] Urine protein measurement (m ass/volume)Ordered By: Dr. Bellamy on 12-20-2022 Protein (U) [Mass/Vol] 110.0 mg/dL 0.0-11.8 [facility] Urine protein/creatinine mas s ratioOrdered By: Dr. Bellamy on 12-20-2022 Protein/Creatinine (U) [Mass ratio] 357 mg/g CRE 0-200 [facility] Qualitative QuantiFERON-TB g old in tube testOrdered By: Dr. Yen on 11-09-2022 M. tuberculosis tuberculin stim IFN-g Ql (Bld) 0.13 IU/mL . [facility] Thin prep Papanicolaou smear with manual screeningOrdered By: Dr. Yen on 11-09-2022 Thin prep Papanicolaou smear with manual screening Comment . [facility] Comment on above: QuantiFERON-TB Gold Plus [...] smear with manual screening 0.13 IU/mL . [facility] Thin prep Papanicolaou smear with manual screening 0.16 IU/mL . [facility] Thin prep Papanicolaou smear with manual screening > 10.00 IU/mL . [facility] Thin prep Papanicolaou smear with manual screening Negative Negative [facility] Comment on above: No response to [...] the productionof interferon gamma. Chemiluminescence immunoassaymethodologyPerformed at: [facility] - [facility] [address] [id number] Director: Leander Boo PhD, Phone: [phone] Absolute lymphocyte countOrd ered By: Dr. Yen on 11-08-2022 Lymphocytes Auto (Unsp spec) [#/Vol] 1.96 10*3/uL 0.83-4.51 [facility] Basophil percentageOrdered B y: Dr. Yen on 11-08-2022 Basophil percentage 169 mg/dL 74-106 [facility] Basophil percentage 7.2 g/dL 6.4-8.2 [facility] Basophil percentage 0.50 mg/dL 0.20-1.00 [facility] Basophil percentage 142 mmol/L 136-145 [facility] Basophil percentage 3.8 mmol/L 3.5-5.1 [facility] Basophil percentage 108 mmol/L 98-107 [facility] Basophils (Bld) [#/Vol] 6.5 10*3/uL 4.4-11.0 [facility] Basophils (Bld) [#/Vol] 3.6 10*3/uL 2.0-7.7 [facility] Basophils/100 WBC (Bld) 55.5 % 47-70 [facility] Basophils/100 WBC (Bld) 1.7 % 0-5 [facility] Basophils/100 WBC (Bld) 0.3 % 0-1 [facility] Bilirubin [Mass/Vol] 0.50 mg/dL 0.20-1.00 [facility] Comment on above: For patients on eltr ombopag therapy, use of Dimension [place] TBIL is not recommended. Chloride [Moles/Vol] 108 mmol/L 98-107 [facility] Eosinophils/100 WBC (Bld) 1.7 % 0-5 [facility] Glucose [Mass/Vol] 169 mg/dL 74-106 [facility] Comment on above: Fasting Glucose resu lt greater than or equal to 126 mg/dL suggests DIABETES MELLITUS per A.D.A. criteria. Neutrophils (Bld) [#/Vol] 3.6 10*3/uL 2.0-7.7 [facility] Neutrophils/100 WBC (Bld) 55.5 % 47-70 [facility] Potassium [Moles/Vol] 3.8 mmol/L 3.5-5.1 [facility] Protein [Mass/Vol] 7.2 g/dL 6.4-8.2 [facility] Sodium [Moles/Vol] 142 mmol/L 136-145 [facility] WBC (Bld) [#/Vol] 6.5 10*3/uL 4.4-11.0 [facility] Blood erythrocytes count (nu mber/volume)Ordered By: Dr. Yen on 11-08-2022 RBC (Bld) [#/Vol] 4.43 10*6/uL 4.6-6.2 [facility] Blood hemoglobin measurement (mass/volume)Ordered By: Dr. Yen on 11-08-2022 Hemoglobin (Bld) [Mass/Vol] 13.8 g/dL 13.0-16.5 [facility] Blood lymphocytes/100 leukoc ytesOrdered By: Dr. Yen on 11-08-2022 Lymphocytes/100 WBC (Bld) 30.4 % 19-41 [facility] Blood monocytes/100 leukocyt esOrdered By: Dr. Yen on 11-08-2022 Monocytes/100 WBC (Bld) 11.8 % 0-10 [facility] Blood platelet mean volumeOr dered By: Dr. Yen on 11-08-2022 Platelet mean volume (Bld) [Entitic vol] 11.5 fL 6.2-12.0 [facility] Determination of erythrocyte mean corpuscular volume (MCV)Ordered By: Dr. Yen on 11-08-2022 MCV (RBC) [Entitic vol] 93.5 fL 80-94 [facility] Hematocrit Auto (Bld) [Volum e fraction]Ordered By: Dr. Yen on 11-08-2022 Hematocrit (Bld) [Volume fraction] 41.4 % 40-54 [facility] Laboratory - Chemistry and C hemistry - challengeOrdered By: Dr. Yen on 11-08-2022 ALP [Catalytic activity/Vol] 53 U/L 45-117 [facility] ALT [Catalytic activity/Vol] 52 U/L 16-61 [facility] CO2 [Moles/Vol] 25.0 mmol/L 21.0-32.0 [facility] Globulin (S) [Mass/Vol] 3.8 g/dL 2.2-4.2 [facility] Urea nitrogen/Creatinine [Mass ratio] 17.8 mg/mg 10-20 [facility] Laboratory - Hematology and Cell countsOrdered By: Dr. Yen on 11-08-2022 Erythrocyte distribution width (RBC) [Entitic vol] 57.5 fL 35.1-43.9 [facility] Erythrocyte distribution width (RBC) [Ratio] 16.8 % 11.6-14.6 [facility] Immature granulocytes/100 WBC (Bld) 0.300 % 0.0-0.9 [facility] Comment on above: IG% - Immature Granu locytes (promyelocytes, myelocytes and metamyelocytes) > 1% indicates that a LEFT SHIFT is Present. MCH (RBC) [Entitic mass] 31.2 pg 27.0-32.0 [facility] Nucleated RBC/100 WBC (Bld) [Ratio] 0.3 % 0-5 [facility] MCHC Auto (RBC) [Mass/Vol]Or dered By: Dr. Yen on 11-08-2022 MCHC (RBC) [Mass/Vol] 33.3 g/dL 32-36 [facility] No Panel InformationOrdered By: Dr. Yen on 11-08-2022 Estimated GFR (MDRD) Amer 66 mL/min >60 [facility] Comment on above: GFR Calc Estimated GFR (MDRD) Non-Af Amer 54 mL/min >60 [facility] Comment on above: Non- GFR Calc 31.2 pg 27.0-32.0 [facility] 16.8 % 11.6-14.6 [facility] 57.5 fl 35.1-43.9 [facility] 0.300 % 0.0-0.9 [facility] 0.3 % 0-5 [facility] 54 mL/min >60 [facility] 66 mL/min >60 [facility] 17.8 RATIO 10-20 [facility] 3.8 g/dL 2.2-4.2 [facility] 53 U/L 45-117 [facility] 52 U/L 16-61 [facility] 25.0 mmol/L 21.0-32.0 [facility] Platelets bldOrdered By: Dr. Yen on 11-08-2022 Platelets (Bld) [#/Vol] 129 10*3/uL 150-450 [facility] Serum or plasma albumin amanda urement (mass/volume)Ordered By: Dr. Yne on 11-08-2022 Albumin [Mass/Vol] 3.4 g/dL 3.2-5.0 [facility] Serum or plasma albumin/glob ulin mass ratioOrdered By: Dr. Yen on 11-08-2022 Albumin/Globulin [Mass ratio] 0.9 {ratio} 0.9-2.4 [facility] Serum or plasma calcium amanda urement (mass/volume)Ordered By: Dr. Yen on 11-08-2022 Calcium [Mass/Vol] 9.0 mg/dL 8.5-10.1 [facility] Serum or plasma creatinine m easurement (mass/volume)Ordered By: Dr. Yen on 11-08-2022 Creatinine [Mass/Vol] 1.35 mg/dL 0.70-1.30 [facility] Comment on above: The validity of the calculated GFR & GFRAA in patients over 70 years has not been determined. Clinical correlation is essential. Serum or plasma urea nitroge n measurement (mass/volume)Ordered By: Dr. Yen on 11-08-2022 Urea nitrogen [Mass/Vol] 24 mg/dL 7-18 [facility] Serum or plasma uric acid me asurement (mass/volume)Ordered By: Dr. Yen on 11-08-2022 Urate [Mass/Vol] 5.1 mg/dL 3.5-7.2 [facility] Comment on above: The drugs N-Acetylcy steine and Metamizole may falsely depress this assay. Thin prep Papanicolaou smear with manual screeningOrdered By: Dr. Yen on 11-08-2022 Thin prep Papanicolaou smear with manual screening 23 U/L 15-37 [facility] Thin prep Papanicolaou smear with manual screening 9 5-15 [facility] Anaerobic cultureOrdered By: Dr. Rooj on 10-08-2022 Bacteria identified Anaer cx Nom (Unsp spec) No growth in 5 days. [facility] Bacterial body fluid culture Ordered By: Dr. Rojo on 10-07-2022 Bacteria identified Cx Nom (Body fld) Culture exhibits no growth. [facility] Absolute lymphocyte countOrd ered By: Dr. Bellamy on 10-05-2022 Lymphocytes Auto (Unsp spec) [#/Vol] 1.16 10*3/uL 0.83-4.51 [facility] Basophil percentageOrdered B y: Dr. Bellamy on 10-05-2022 Basophil percentage 1.8 mg/dL 2.5-4.9 [facility] Basophil percentage 210 mg/dL 74-106 [facility] Basophil percentage 138 mmol/L 136-145 [facility] Basophil percentage 3.4 mmol/L 3.5-5.1 [facility] Basophil percentage 104 mmol/L 98-107 [facility] Basophils (Bld) [#/Vol] 10.7 10*3/uL 4.4-11.0 [facility] Basophils (Bld) [#/Vol] 9.0 10*3/uL 2.0-7.7 [facility] Basophils/100 WBC (Bld) 0.1 % 0-1 [facility] Basophils/100 WBC (Bld) 84.0 % 47-70 [facility] Basophils/100 WBC (Bld) 0.0 % 0-5 [facility] Chloride [Moles/Vol] 104 mmol/L 98-107 [facility] Eosinophils/100 WBC (Bld) 0.0 % 0-5 [facility] Glucose [Mass/Vol] 210 mg/dL 74-106 [facility] Comment on above: Glucose result great er than or equal to 200 mg/dLsuggests DIABETES MELLITUS per A.D.A. criteria. Neutrophils (Bld) [#/Vol] 9.0 10*3/uL 2.0-7.7 [facility] Neutrophils/100 WBC (Bld) 84.0 % 47-70 [facility] Potassium [Moles/Vol] 3.4 mmol/L 3.5-5.1 [facility] Sodium [Moles/Vol] 138 mmol/L 136-145 [facility] WBC (Bld) [#/Vol] 10.7 10*3/uL 4.4-11.0 [facility] Blood erythrocytes count (nu mber/volume)Ordered By: Dr. Bellamy on 10-05-2022 RBC (Bld) [#/Vol] 3.98 10*6/uL 4.6-6.2 [facility] Blood hemoglobin measurement (mass/volume)Ordered By: Dr. Bellamy on 10-05-2022 Hemoglobin (Bld) [Mass/Vol] 12.3 g/dL 13.0-16.5 [facility] Blood lymphocytes/100 leukoc ytesOrdered By: Dr. Bellamy on 10-05-2022 Lymphocytes/100 WBC (Bld) 10.8 % 19-41 [facility] Blood monocytes/100 leukocyt esOrdered By: Dr. Bellamy on 10-05-2022 Monocytes/100 WBC (Bld) 4.7 % 0-10 [facility] Blood platelet mean volumeOr dered By: Dr. Bellamy on 10-05-2022 Platelet mean volume (Bld) [Entitic vol] 11.2 fL 6.2-12.0 [facility] Determination of erythrocyte mean corpuscular volume (MCV)Ordered By: Dr. Bellamy on 10-05-2022 MCV (RBC) [Entitic vol] 91.2 fL 80-94 [facility] Glucose Glucometer (BldC) [M ass/Vol]Ordered By: Dr. Bojorquez on 10-05-2022 Glucose [Mass/Vol] 185 mg/dL 74-106 [facility] Comment on above: MANAGEMENT OF PATIEN T CARE PER NURSING PROTOCOL Hematocrit Auto (Bld) [Volum e fraction]Ordered By: Dr. Bellamy on 10-05-2022 Hematocrit (Bld) [Volume fraction] 36.3 % 40-54 [facility] Laboratory - Chemistry and C hemistry - challengeOrdered By: Dr. Bellamy on 10-05-2022 CO2 [Moles/Vol] 25.0 mmol/L 21.0-32.0 [facility] Magnesium [Mass/Vol] 2.2 mg/dL 1.6-2.6 [facility] Urea nitrogen/Creatinine [Mass ratio] 17.5 mg/mg 10-20 [facility] Laboratory - Hematology and Cell countsOrdered By: Dr. Bellamy on 10-05-2022 Erythrocyte distribution width (RBC) [Entitic vol] 53.3 fL 35.1-43.9 [facility] Erythrocyte distribution width (RBC) [Ratio] 15.7 % 11.6-14.6 [facility] Immature granulocytes/100 WBC (Bld) 0.400 % 0.0-0.9 [facility] Comment on above: IG% - Immature Granu locytes (promyelocytes, myelocytes and metamyelocytes) > 1% indicates that a LEFT SHIFT is Present. MCH (RBC) [Entitic mass] 30.9 pg 27.0-32.0 [facility] Nucleated RBC/100 WBC (Bld) [Ratio] 0 % 0-5 [facility] MCHC Auto (RBC) [Mass/Vol]Or dered By: Dr. Bellamy on 10-05-2022 MCHC (RBC) [Mass/Vol] 33.9 g/dL 32-36 [facility] No Panel InformationOrdered By: Dr. Bellamy on 10-05-2022 Estimated Creatinine Clearance Calc 34.29 ml/min [facility] Estimated GFR (MDRD) Amer 52 mL/min >60 [facility] Comment on above: GFR Calc Estimated GFR (MDRD) Non-Af Amer 43 mL/min >60 [facility] Comment on above: Non- GFR Calc 30.9 pg 27.0-32.0 [facility] 15.7 % 11.6-14.6 [facility] 53.3 fl 35.1-43.9 [facility] 0.400 % 0.0-0.9 [facility] 0 % 0-5 [facility] 43 mL/min >60 [facility] 52 mL/min >60 [facility] 34.29 ml/min [facility] 17.5 RATIO 10-20 [facility] 2.2 mg/dL 1.6-2.6 [facility] 25.0 mmol/L 21.0-32.0 [facility] Platelets bldOrdered By: Dr. Bellamy on 10-05-2022 Platelets (Bld) [#/Vol] 192 10*3/uL 150-450 [facility] Serum or plasma calcium amanda urement (mass/volume)Ordered By: Dr. Bellamy on 10-05-2022 Calcium [Mass/Vol] 8.4 mg/dL 8.5-10.1 [facility] Serum or plasma creatinine m easurement (mass/volume)Ordered By: Dr. Bellamy on 10-05-2022 Creatinine [Mass/Vol] 1.66 mg/dL 0.70-1.30 [facility] Comment on above: The validity of the calculated GFR & GFRAA in patients over 70 years has not been determined. Clinical correlation is essential. Serum or plasma urea nitroge n measurement (mass/volume)Ordered By: Dr. Bellamy on 10-05-2022 Urea nitrogen [Mass/Vol] 29 mg/dL 7-18 [facility] Thin prep Papanicolaou smear with manual screeningOrdered By: Dr. Bellamy on 10-05-2022 Thin prep Papanicolaou smear with manual screening 9 5-15 [facility] Absolute lymphocyte counton 10-04-2022 Lymphocytes Auto (Unsp spec) [#/Vol] 2.44 10*3/uL 0.83-4.51 [facility] Work Phone: Basophil percentageon 2022 Basophils/100 WBC (Bld) 0.2 % 0-1 [facility] Work Phone: Chloride [Moles/Vol] 104 mmol/L 98-107 [facility] Work Phone: Eosinophils/100 WBC (Bld) 1.7 % 0-5 [facility] Work Phone: Glucose [Mass/Vol] 175 mg/dL 74-106 [facility] Work Phone: Comment on above: Fasting Glucose resu lt greater than or equal to 126 mg/dL suggests DIABETES MELLITUS per A.D.A. criteria. Neutrophils (Bld) [#/Vol] 6.6 10*3/uL 2.0-7.7 [facility] Work Phone: Neutrophils/100 WBC (Bld) 62.9 % 47-70 [facility] Work Phone: Potassium [Moles/Vol] 3.3 mmol/L 3.5-5.1 [facility] Work Phone: Comment on above: Slight Hemolysis, Re sult may be falsely increased. Sodium [Moles/Vol] 136 mmol/L 136-145 [facility] Work Phone: WBC (Bld) [#/Vol] 10.4 10*3/uL 4.4-11.0 [facility] Work Phone: Blood erythrocytes count (nu mber/volume)on 10-04-2022 RBC (Bld) [#/Vol] 4.01 10*6/uL 4.6-6.2 [facility] Work Phone: [phone] Blood hemoglobin measurement (mass/volume)on 10-04-2022 Hemoglobin (Bld) [Mass/Vol] 12.5 g/dL 13.0-16.5 [facility] Work Phone: [phone] Blood lymphocytes/100 leukoc yteson 10-04-2022 Lymphocytes/100 WBC (Bld) 23.4 % 19-41 [facility] Work Phone: [phone] Blood monocytes/100 leukocyt eson 10-04-2022 Monocytes/100 WBC (Bld) 11.5 % 0-10 [facility] Work Phone: [phone] Blood platelet mean volumeon 10-04-2022 Platelet mean volume (Bld) [Entitic vol] 11.7 fL 6.2-12.0 [facility] Work Phone: [phone] Determination of erythrocyte mean corpuscular volume (MCV)on 10-04-2022 MCV (RBC) [Entitic vol] 92.8 fL 80-94 [facility] Work Phone: [phone] Erythrocyte sedimentation ra teOrdered By: Dr. Stratton on 10-04-2022 ESR (Bld) [Velocity] 43 mm/h 0-20 [facility] Hematocrit Auto (Bld) [Volum e fraction]on 10-04-2022 Hematocrit (Bld) [Volume fraction] 37.2 % 40-54 [facility] Work Phone: [phone] Laboratory - Chemistry and C hemistry - challengeon 10-04-2022 CO2 [Moles/Vol] 27.0 mmol/L 21.0-32.0 [facility] Work Phone: [phone] Urea nitrogen/Creatinine [Mass ratio] 14.0 mg/mg 10-20 [facility] Work Phone: [phone] Laboratory - Hematology and Cell countson 10-04-2022 Erythrocyte distribution width (RBC) [Entitic vol] 55.3 fL 35.1-43.9 [facility] Work Phone: Erythrocyte distribution width (RBC) [Ratio] 16.2 % 11.6-14.6 [facility] Work Phone: Immature granulocytes/100 WBC (Bld) 0.300 % 0.0-0.9 [facility] Work Phone: [phone] Comment on above: IG% - Immature Granu locytes (promyelocytes, myelocytes and metamyelocytes) > 1% indicates that a LEFT SHIFT is Present. MCH (RBC) [Entitic mass] 31.2 pg 27.0-32.0 [facility] Work Phone: Nucleated RBC/100 WBC (Bld) [Ratio] 0 % 0-5 [facility] Work Phone: [phone] MCHC Auto (RBC) [Mass/Vol]on 10-04-2022 MCHC (RBC) [Mass/Vol] 33.6 g/dL 32-36 [facility] Work Phone: No Panel Informationon 10-04 Estimated Creatinine Clearance Calc 30.60 ml/min [facility] Work Phone: [phone] Estimated GFR (MDRD) Amer 45 mL/min >60 [facility] Work Phone: [phone] Comment on above: GFR Calc Estimated GFR (MDRD) Non-Af Amer 38 mL/min >60 [facility] Work Phone: Comment on above: Non- GFR Calc Platelets bldon 10-04-2022 Platelets (Bld) [#/Vol] 176 10*3/uL 150-450 [facility] Work Phone: [phone] Serum or plasma C reactive p rotein measurement (mass/volume)Ordered By: Dr. Stratton on 10-04-2022 CRP [Mass/Vol] 122.00 mg/L 0.0-3.0 [facility] Comment on above: C-Reactive Protein ( CRP) provides useful information for thediagnosis, therapy and monitoring of inflammatory processesand associated diseases. For the evaluation of Relative Riskfor Cardiovascular Disease, a High Sensitivity CRP (HSCRP)should be ordered. Serum or plasma calcium amanda urement (mass/volume)on 10-04-2022 Calcium [Mass/Vol] 8.4 mg/dL 8.5-10.1 [facility] Work Phone: Serum or plasma creatinine m easurement (mass/volume)on 10-04-2022 Creatinine [Mass/Vol] 1.86 mg/dL 0.70-1.30 [facility] Work Phone: Comment on above: The validity of the calculated GFR & GFRAA in patients over 70 years has not been determined. Clinical correlation is essential. Serum or plasma urea nitroge n measurement (mass/volume)on 10-04-2022 Urea nitrogen [Mass/Vol] 26 mg/dL 7-18 [facility] Work Phone: Thin prep Papanicolaou smear with manual screeningon 10-04-2022 Thin prep Papanicolaou smear with manual screening 5 5-15 [facility] Work Phone: Gram stain for investigation of transfusion reactionOrdered By: Dr. Rojo on 10-03-2022 Microscopic observation Gram stain Nom (Unsp spec) [facility] Absolute lymphocyte countOrd ered By: Dr. Mckinley on 10-02-2022 Lymphocytes Auto (Unsp spec) [#/Vol] 2.56 10*3/uL 0.83-4.51 [facility] Absolute lymphocyte countOrd ered By: Dr. Yen on 10-02-2022 Lymphocytes Auto (Unsp spec) [#/Vol] 2.50 10*3/uL 0.83-4.51 [facility] Basophil percentageOrdered B y: Dr. Mckinley on 10-02-2022 Basophil percentage 130 mg/dL 74-106 [facility] Basophil percentage 138 mmol/L 136-145 [facility] Basophil percentage 3.5 mmol/L 3.5-5.1 [facility] Basophil percentage 103 mmol/L 98-107 [facility] Basophils (Bld) [#/Vol] 10.3 10*3/uL 4.4-11.0 [facility] Basophils (Bld) [#/Vol] 6.1 10*3/uL 2.0-7.7 [facility] Basophils/100 WBC (Bld) 0.3 % 0-1 [facility] Basophils/100 WBC (Bld) 59.5 % 47-70 [facility] Basophils/100 WBC (Bld) 2.8 % 0-5 [facility] Chloride [Moles/Vol] 103 mmol/L 98-107 [facility] Eosinophils/100 WBC (Bld) 2.8 % 0-5 [facility] Glucose [Mass/Vol] 130 mg/dL 74-106 [facility] Comment on above: Fasting Glucose resu lt greater than or equal to 126 mg/dL suggests DIABETES MELLITUS per A.D.A. criteria. Neutrophils (Bld) [#/Vol] 6.1 10*3/uL 2.0-7.7 [facility] Neutrophils/100 WBC (Bld) 59.5 % 47-70 [facility] Potassium [Moles/Vol] 3.5 mmol/L 3.5-5.1 [facility] Sodium [Moles/Vol] 138 mmol/L 136-145 [facility] WBC (Bld) [#/Vol] 10.3 10*3/uL 4.4-11.0 [facility] Basophil percentageOrdered B y: Dr. Yen on 10-02-2022 Basophil percentage 200 mg/dL 74-106 [facility] Basophil percentage 7.7 g/dL 6.4-8.2 [facility] Basophil percentage 0.60 mg/dL 0.20-1.00 [facility] Basophil percentage 139 mmol/L 136-145 [facility] Basophil percentage 3.4 mmol/L 3.5-5.1 [facility] Basophil percentage 103 mmol/L 98-107 [facility] Basophils (Bld) [#/Vol] 9.3 10*3/uL 4.4-11.0 [facility] Basophils (Bld) [#/Vol] 5.5 10*3/uL 2.0-7.7 [facility] Basophils/100 WBC (Bld) 0.3 % 0-1 [facility] Basophils/100 WBC (Bld) 58.9 % 47-70 [facility] Basophils/100 WBC (Bld) 3.1 % 0-5 [facility] Bilirubin [Mass/Vol] 0.60 mg/dL 0.20-1.00 [facility] Comment on above: For patients on eltr ombopag therapy, use of Dimension [place] TBIL is not recommended. Chloride [Moles/Vol] 103 mmol/L 98-107 [facility] Eosinophils/100 WBC (Bld) 3.1 % 0-5 [facility] Glucose [Mass/Vol] 200 mg/dL 74-106 [facility] Comment on above: Glucose result great er than or equal to 200 mg/dLsuggests DIABETES MELLITUS per A.D.A. criteria. Neutrophils (Bld) [#/Vol] 5.5 10*3/uL 2.0-7.7 [facility] Neutrophils/100 WBC (Bld) 58.9 % 47-70 [facility] Potassium [Moles/Vol] 3.4 mmol/L 3.5-5.1 [facility] Protein [Mass/Vol] 7.7 g/dL 6.4-8.2 [facility] Sodium [Moles/Vol] 139 mmol/L 136-145 [facility] WBC (Bld) [#/Vol] 9.3 10*3/uL 4.4-11.0 [facility] Blood erythrocytes count (nu mber/volume)Ordered By: Dr. Mckinley on 10-02-2022 RBC (Bld) [#/Vol] 4.31 10*6/uL 4.6-6.2 [facility] Blood erythrocytes count (nu mber/volume)Ordered By: Dr. Yen on 10-02-2022 RBC (Bld) [#/Vol] 4.18 10*6/uL 4.6-6.2 [facility] Blood hemoglobin measurement (mass/volume)Ordered By: Dr. Mckinley on 10-02-2022 Hemoglobin (Bld) [Mass/Vol] 13.6 g/dL 13.0-16.5 [facility] Blood hemoglobin measurement (mass/volume)Ordered By: Dr. Yen on 10-02-2022 Hemoglobin (Bld) [Mass/Vol] 13.0 g/dL 13.0-16.5 [facility] Blood lymphocytes/100 leukoc ytesOrdered By: Dr. Rojo on 10-02-2022 Lymphocytes/100 WBC (Bld) 34 % [facility] Blood lymphocytes/100 leukoc ytesOrdered By: Dr. Mckinley on 10-02-2022 Lymphocytes/100 WBC (Bld) 24.9 % 19-41 [facility] Blood lymphocytes/100 leukoc ytesOrdered By: Dr. Yen on 10-02-2022 Lymphocytes/100 WBC (Bld) 26.9 % 19-41 [facility] Blood monocytes/100 leukocyt esOrdered By: Dr. Mckinley on 10-02-2022 Monocytes/100 WBC (Bld) 12.2 % 0-10 [facility] Blood monocytes/100 leukocyt esOrdered By: Dr. Yen on 10-02-2022 Monocytes/100 WBC (Bld) 10.3 % 0-10 [facility] Blood platelet mean volumeOr dered By: Dr. Mckinley on 10-02-2022 Platelet mean volume (Bld) [Entitic vol] 10.7 fL 6.2-12.0 [facility] Blood platelet mean volumeOr dered By: Dr. Yen on 10-02-2022 Platelet mean volume (Bld) [Entitic vol] 11.0 fL 6.2-12.0 [facility] Color of Synovial fluidOrder ed By: Dr. Rojo on 10-02-2022 Color (Syn fld) Yellow Pale Yellow [facility] Determination of appearance of synovial fluidOrdered By: Dr. Rojo on 10-02-2022 Appearance (Syn fld) Sl Cl CLEAR [facility] Determination of erythrocyte mean corpuscular volume (MCV)Ordered By: Dr. Mckinley on 10-02-2022 MCV (RBC) [Entitic vol] 90.7 fL 80-94 [facility] Determination of erythrocyte mean corpuscular volume (MCV)Ordered By: Dr. Yen on 10-02-2022 MCV (RBC) [Entitic vol] 91.1 fL 80-94 [facility] Erythrocyte sedimentation ra teOrdered By: Dr. Mckinley on 10-02-2022 ESR (Bld) [Velocity] 28 mm/h 0-20 [facility] Hematocrit Auto (Bld) [Volum e fraction]Ordered By: Dr. Mckinley on 10-02-2022 Hematocrit (Bld) [Volume fraction] 39.1 % 40-54 [facility] Hematocrit Auto (Bld) [Volum e fraction]Ordered By: Dr. Yen on 10-02-2022 Hematocrit (Bld) [Volume fraction] 38.1 % 40-54 [facility] Laboratory - Chemistry and C hemistry - challengeOrdered By: Dr. Mckinley on 10-02-2022 CO2 [Moles/Vol] 28.0 mmol/L 21.0-32.0 [facility] Urea nitrogen/Creatinine [Mass ratio] 12.1 mg/mg 10- [facility] Laboratory - Chemistry and C hemistry - challengeOrdered By: Dr. Yen on 10-02-2022 ALP [Catalytic activity/Vol] 59 U/L 45-117 [facility] ALT [Catalytic activity/Vol] 47 U/L 16-61 [facility] CO2 [Moles/Vol] 28.0 mmol/L 21.0-32.0 [facility] Globulin (S) [Mass/Vol] 3.8 g/dL 2.2-4.2 [facility] Urea nitrogen/Creatinine [Mass ratio] 12.6 mg/mg 10- [facility] Laboratory - Hematology and Cell countsOrdered By: Dr. Mckinley on 10-02-2022 Erythrocyte distribution width (RBC) [Entitic vol] 53.1 fL 35.1-43.9 [facility] Erythrocyte distribution width (RBC) [Ratio] 15.9 % 11.6-14.6 [facility] Immature granulocytes/100 WBC (Bld) 0.300 % 0.0-0.9 [facility] Comment on above: IG% - Immature Granu locytes (promyelocytes, myelocytes and metamyelocytes) > 1% indicates that a LEFT SHIFT is Present. MCH (RBC) [Entitic mass] 31.6 pg 27.0-32.0 [facility] Nucleated RBC/100 WBC (Bld) [Ratio] 0 % 0-5 [facility] Laboratory - Hematology and Cell countsOrdered By: Dr. Yen on 10-02-2022 Erythrocyte distribution width (RBC) [Entitic vol] 52.8 fL 35.1-43.9 [facility] Erythrocyte distribution width (RBC) [Ratio] 15.7 % 11.6-14.6 [facility] Immature granulocytes/100 WBC (Bld) 0.500 % 0.0-0.9 [facility] Comment on above: IG% - Immature Granu locytes (promyelocytes, myelocytes and metamyelocytes) > 1% indicates that a LEFT SHIFT is Present. MCH (RBC) [Entitic mass] 31.1 pg 27.0-32.0 [facility] Nucleated RBC/100 WBC (Bld) [Ratio] 0 % 0-5 [facility] MCHC Auto (RBC) [Mass/Vol]Or dered By: Dr. Mckinley on 10-02-2022 MCHC (RBC) [Mass/Vol] 34.8 g/dL 32-36 [facility] MCHC Auto (RBC) [Mass/Vol]Or dered By: Dr. Yen on 10-02-2022 MCHC (RBC) [Mass/Vol] 34.1 g/dL 32-36 [facility] No Panel InformationOrdered By: Dr. Rojo on 10-02-2022 Synovial Fluid Mononuclear WBCs 0.167 10^3/ul [facility] Synovial Fluid Mononuclear WBCs % 56.3 % [facility] Synovial Fluid Polynuclear WBCs 0.130 10^3/uL [facility] Synovial Fluid Polynuclear WBCs % 43.7 % [facility] Synovial Fluid Total Cells Counted 0.3170 10^3/uL 0.000-0.00 0 [facility] Comment on above: This is the Total Nu mber of Nucleated Cell Types in the Body Fluid. 0.3170 10^3/uL 0.000-0.00 0 [facility] 43.7 % [facility] 0.130 10^3/uL [facility] 56.3 % [facility] 0.167 10^3/ul [facility] No Panel InformationOrdered By: Dr. Mckinley on 10-02-2022 Estimated Creatinine Clearance Calc 31.27 ml/min [facility] Estimated GFR (MDRD) Amer 47 mL/min >60 [facility] Comment on above: GFR Calc Estimated GFR (MDRD) Non-Af Amer 39 mL/min >60 [facility] Comment on above: Non- GFR Calc 31.6 pg 27.0-32.0 [facility] 15.9 % 11.6-14.6 [facility] 53.1 fl 35.1-43.9 [facility] 0.300 % 0.0-0.9 [facility] 0 % 0-5 [facility] 39 mL/min >60 [facility] 47 mL/min >60 [facility] 31.27 ml/min [facility] 12.1 RATIO 10-20 [facility] 28.0 mmol/L 21.0-32.0 [facility] No Panel InformationOrdered By: Dr. Yen on 10-02-2022 Estimated GFR (MDRD) Amer 49 mL/min >60 [facility] Comment on above: GFR Calc Estimated GFR (MDRD) Non-Af Amer 41 mL/min >60 [facility] Comment on above: Non- GFR Calc 31.1 pg 27.0-32.0 [facility] 15.7 % 11.6-14.6 [facility] 52.8 fl 35.1-43.9 [facility] 0.500 % 0.0-0.9 [facility] 0 % 0-5 [facility] 41 mL/min >60 [facility] 49 mL/min >60 [facility] 12.6 RATIO 10-20 [facility] 3.8 g/dL 2.2-4.2 [facility] 59 U/L 45-117 [facility] 47 U/L 16-61 [facility] 28.0 mmol/L 21.0-32.0 [facility] Platelets bldOrdered By: Dr. Mckinley on 10-02-2022 Platelets (Bld) [#/Vol] 176 10*3/uL 150-450 [facility] Platelets bldOrdered By: Dr. Yen on 10-02-2022 Platelets (Bld) [#/Vol] 165 10*3/uL 150-450 [facility] Review by pathologiston Pathologist review [place] (Unsp spec) [Interp] May follow [facility] Work Phone: Review by pathologistOrdered By: Dr. Rojo on 10-02-2022 Pathologist review [place] (Unsp spec) [Interp] Reviewed [facility] Comment on above: Previous reported re sult: May follow Edited by: TOBY on 10/03/22:1326Negative for malignant cells.Andrea Henley M.D. 10/03/22 AMENDED REPORT 10/03/22 1326 PATH COM/SYFL previously reported as: May follow Serum or plasma C reactive p rotein measurement (mass/volume)Ordered By: Dr. Mckinley on 10-02-2022 CRP [Mass/Vol] 26.30 mg/L 0.0-3.0 [facility] Comment on above: C-Reactive Protein ( CRP) provides useful information for thediagnosis, therapy and monitoring of inflammatory processesand associated diseases. For the evaluation of Relative Riskfor Cardiovascular Disease, a High Sensitivity CRP (HSCRP)should be ordered. Serum or plasma albumin amanda urement (mass/volume)Ordered By: Dr. Yen on 10-02-2022 Albumin [Mass/Vol] 3.9 g/dL 3.2-5.0 [facility] Serum or plasma albumin/glob ulin mass ratioOrdered By: Dr. Yen on 10-02-2022 Albumin/Globulin [Mass ratio] 1.0 {ratio} 0.9-2.4 [facility] Serum or plasma calcium amanda urement (mass/volume)Ordered By: Dr. Mckinley on 10-02-2022 Calcium [Mass/Vol] 8.7 mg/dL 8.5-10.1 [facility] Serum or plasma calcium amanda urement (mass/volume)Ordered By: Dr. Yen on 10-02-2022 Calcium [Mass/Vol] 9.1 mg/dL 8.5-10.1 [facility] Serum or plasma creatinine m easurement (mass/volume)Ordered By: Dr. Mckinley on 10-02-2022 Creatinine [Mass/Vol] 1.82 mg/dL 0.70-1.30 [facility] Comment on above: The validity of the calculated GFR & GFRAA in patients over 70 years has not been determined. Clinical correlation is essential. Serum or plasma creatinine m easurement (mass/volume)Ordered By: Dr. Yen on 10-02-2022 Creatinine [Mass/Vol] 1.74 mg/dL 0.70-1.30 [facility] Comment on above: The validity of the calculated GFR & GFRAA in patients over 70 years has not been determined. Clinical correlation is essential. Serum or plasma urea nitroge n measurement (mass/volume)Ordered By: Dr. Mckinley on 10-02-2022 Urea nitrogen [Mass/Vol] 22 mg/dL 04-16 [facility] Serum or plasma urea nitroge n measurement (mass/volume)Ordered By: Dr. Yen on 10-02-2022 Urea nitrogen [Mass/Vol] 22 mg/dL 04-16 [facility] Serum or plasma uric acid me asurement (mass/volume)Ordered By: Dr. Mckinley on 10-02-2022 Urate [Mass/Vol] 8.3 mg/dL 3.5-7.2 [facility] Comment on above: The drugs N-Acetylcy steine and Metamizole may falsely depress this assay. Specimen source identificati on of body fluidOrdered By: Dr. Rojo on 10-02-2022 Specimen source Nom (Body fld) RIGHT KNEE [facility] Synovial fluid erythrocytes count (number/volume)Ordered By: Dr. Rojo on 10-02-2022 RBC (Syn fld) [#/Vol] 0.002 10^6/uL 0-0 [facility] Synovial fluid leukocytes co unt (number/volume)Ordered By: Dr. Rojo on 10-02-2022 WBC (Syn fld) [#/Vol] 0.2970 10^3/uL 0.00 0-0.00 2 [facility] Synovial fluid monocyte perc entageOrdered By: Dr. Rojo on 10-02-2022 Monocytes/100 WBC (Syn fld) 34 % [facility] Synovial fluid neutrophil pe rcentageOrdered By: Dr. Rojo on 10-02-2022 Neutrophils/100 WBC (Syn fld) 30 % 0-25 [facility] Synovial fluid other cells/1 00 leukocytes identificationOrdered By: Dr. Rojo on 10-02-2022 Other cells/100 WBC Nom (Syn fld) 2 % [facility] Thin prep Papanicolaou smear with manual screeningOrdered By: Dr. Mckinley on 10-02-2022 Thin prep Papanicolaou smear with manual screening 7 5-15 [facility] Thin prep Papanicolaou smear with manual screeningOrdered By: Dr. Yen on 10-02-2022 Thin prep Papanicolaou smear with manual screening 29 U/L 15-37 [facility] Thin prep Papanicolaou smear with manual screening 8 5-15 [facility] Absolute lymphocyte countOrd ered By: Dyan Chavez on 09-06-2022 Lymphocytes Auto (Unsp spec) [#/Vol] 2.77 10*3/uL 0.83-4.51 [facility] Basophil percentageOrdered B y: Dyan Chavez on 09-06-2022 Basophil percentage 121 mg/dL 74-106 [facility] Basophil percentage 139 mmol/L 136-145 [facility] Basophil percentage 3.5 mmol/L 3.5-5.1 [facility] Basophil percentage 106 mmol/L 98-107 [facility] Basophils (Bld) [#/Vol] 6.7 10*3/uL 4.4-11.0 [facility] Basophils (Bld) [#/Vol] 2.8 10*3/uL 2.0-7.7 [facility] Basophils/100 WBC (Bld) 0.6 % 0-1 [facility] Basophils/100 WBC (Bld) 41.2 % 47-70 [facility] Basophils/100 WBC (Bld) 6.4 % 0-5 [facility] Chloride [Moles/Vol] 106 mmol/L 98-107 [facility] Eosinophils/100 WBC (Bld) 6.4 % 0-5 [facility] Glucose [Mass/Vol] 121 mg/dL 74-106 [facility] Comment on above: Fasting Glucose resu lt from 100 to 125 mg/dL suggests IMPAIRED HOMEOSTASIS per A.D.A. criteria. Neutrophils (Bld) [#/Vol] 2.8 10*3/uL 2.0-7.7 [facility] Neutrophils/100 WBC (Bld) 41.2 % 47-70 [facility] Potassium [Moles/Vol] 3.5 mmol/L 3.5-5.1 [facility] Sodium [Moles/Vol] 139 mmol/L 136-145 [facility] WBC (Bld) [#/Vol] 6.7 10*3/uL 4.4-11.0 [facility] Blood erythrocytes count (nu mber/volume)Ordered By: Dyan Chavez on 09-06-2022 RBC (Bld) [#/Vol] 4.43 10*6/uL 4.6-6.2 [facility] Blood hemoglobin measurement (mass/volume)Ordered By: Dyan Chavez on 09-06-2022 Hemoglobin (Bld) [Mass/Vol] 13.6 g/dL 13.0-16.5 [facility] Blood lymphocytes/100 leukoc ytesOrdered By: Dyan Chavez on 09-06-2022 Lymphocytes/100 WBC (Bld) 41.2 % 19-41 [facility] Blood monocytes/100 leukocyt esOrdered By: Dyan Chavez on 09-06-2022 Monocytes/100 WBC (Bld) 10.5 % 0-10 [facility] Blood platelet mean volumeOr dered By: Dyan Cahvez on 09-06-2022 Platelet mean volume (Bld) [Entitic vol] 11.1 fL 6.2-12.0 [facility] Determination of erythrocyte mean corpuscular volume (MCV)Ordered By: Dyan Chavez on 09-06-2022 MCV (RBC) [Entitic vol] 91.4 fL 80-94 [facility] Hematocrit Auto (Bld) [Volum e fraction]Ordered By: Dyan Chavez on 09-06-2022 Hematocrit (Bld) [Volume fraction] 40.5 % 40-54 [facility] Laboratory - Chemistry and C hemistry - challengeOrdered By: Dyan Chavez on 09-06-2022 CO2 [Moles/Vol] 28.0 mmol/L 21.0-32.0 [facility] Free T4 [Mass/Vol] 0.93 ng/dL 0.76-1.46 [facility] Urea nitrogen/Creatinine [Mass ratio] 14.5 mg/mg 10-20 [facility] Laboratory - Hematology and Cell countsOrdered By: Dyan Chavez on 09-06-2022 Erythrocyte distribution width (RBC) [Entitic vol] 53.2 fL 35.1-43.9 [facility] Erythrocyte distribution width (RBC) [Ratio] 15.8 % 11.6-14.6 [facility] Immature granulocytes/100 WBC (Bld) 0.100 % 0.0-0.9 [facility] Comment on above: IG% - Immature Granu locytes (promyelocytes, myelocytes and metamyelocytes) > 1% indicates that a LEFT SHIFT is Present. MCH (RBC) [Entitic mass] 30.7 pg 27.0-32.0 [facility] Nucleated RBC/100 WBC (Bld) [Ratio] 0 % 0-5 [facility] MCHC Auto (RBC) [Mass/Vol]Or dered By: Dyan Chavez on 09-06-2022 MCHC (RBC) [Mass/Vol] 33.6 g/dL 32-36 [facility] No Panel InformationOrdered By: Dyan Chavez on 09-06-2022 Estimated GFR (MDRD) Amer 52 mL/min >60 [facility] Comment on above: GFR Calc Estimated GFR (MDRD) Non-Af Amer 43 mL/min >60 [facility] Comment on above: Non- GFR Calc Free Triiodothyronine (T3) pg/dL 2.0 pg/mL 2.18-3.98 [facility] Thyroid Stimulating Hormone (TSH) 1.55 uIU/mL 0.358-3.74 [facility] Vitamin D 25-Hydroxy 47.3 ng/mL [facility] Comment on above: Vitamin D 25(OH) Sta tus Range Deficiency <20 ng/mL (50nmol/L) Insufficiency 20 - 30 ng/mL (50 - 75 nmol/L) Sufficiency 30 - 100 ng/mL (75 - 250 nmol/L) Toxicity >100 ng/mL (>250 nmol/L) 30.7 pg 27.0-32.0 [facility] 15.8 % 11.6-14.6 [facility] 53.2 fl 35.1-43.9 [facility] 0.100 % 0.0-0.9 [facility] 0 % 0-5 [facility] 43 mL/min >60 [facility] 52 mL/min >60 [facility] 14.5 RATIO 10-20 [facility] 28.0 mmol/L 21.0-32.0 [facility] 2.0 pg/mL 2.18-3.98 [facility] 1.55 uIU/mL 0.358-3.74 [facility] 0.93 ng/dL 0.76-1.46 [facility] 47.3 ng/mL [facility] Platelets bldOrdered By: Raymon Chavez on 09-06-2022 Platelets (Bld) [#/Vol] 181 10*3/uL 150-450 [facility] Serum or plasma calcium amanda urement (mass/volume)Ordered By: Dyan Chavez on 09-06-2022 Calcium [Mass/Vol] 8.7 mg/dL 8.5-10.1 [facility] Serum or plasma creatinine m easurement (mass/volume)Ordered By: Dyan Chavez on 09-06-2022 Creatinine [Mass/Vol] 1.65 mg/dL 0.70-1.30 [facility] Comment on above: The validity of the calculated GFR & GFRAA in patients over 70 years has not been determined. Clinical correlation is essential. Serum or plasma urea nitroge n measurement (mass/volume)Ordered By: Dyan Chavez on 09-06-2022 Urea nitrogen [Mass/Vol] 24 mg/dL -18 [facility] Thin prep Papanicolaou smear with manual screeningOrdered By: Dyan Chavez on 09-06-2022 Thin prep Papanicolaou smear with manual screening 5 5-15 [facility] Basophil percentageOrdered B y: Dyan Chavez on 07-17-2022 Chloride [Moles/Vol] 110 mmol/L 98-107 [facility] Glucose [Mass/Vol] 146 mg/dL 74-106 [facility] Comment on above: Fasting Glucose resu lt greater than or equal to 126 mg/dL suggests DIABETES MELLITUS per A.D.A. criteria. Potassium [Moles/Vol] 3.8 mmol/L 3.5-5.1 [facility] Sodium [Moles/Vol] 141 mmol/L 136-145 [facility] Laboratory - Chemistry and C hemistry - challengeOrdered By: Dyan Chavez on 07-17-2022 CO2 [Moles/Vol] 26.0 mmol/L 21.0-32.0 [facility] Urea nitrogen/Creatinine [Mass ratio] 17.0 mg/mg 10-20 [facility] No Panel InformationOrdered By: Dyan Chavez on 07-17-2022 Estimated GFR (MDRD) Amer 57 mL/min >60 [facility] Comment on above: GFR Calc Estimated GFR (MDRD) Non-Af Amer 47 mL/min >60 [facility] Comment on above: Non- GFR Calc Serum or plasma calcium amanda urement (mass/volume)Ordered By: Dyan Chavez on 07-17-2022 Calcium [Mass/Vol] 9.1 mg/dL 8.5-10.1 [facility] Serum or plasma creatinine m easurement (mass/volume)Ordered By: Dyan Chavez on 07-17-2022 Creatinine [Mass/Vol] 1.53 mg/dL 0.70-1.30 [facility] Comment on above: The validity of the calculated GFR & GFRAA in patients over 70 years has not been determined. Clinical correlation is essential. Serum or plasma urea nitroge n measurement (mass/volume)Ordered By: Dyan Chavez on 07-17-2022 Urea nitrogen [Mass/Vol] 26 mg/dL 04-16 [facility] Thin prep Papanicolaou smear with manual screeningOrdered By: Dyan Chavez on 07-17-2022 Thin prep Papanicolaou smear with manual screening 5 5-15 [facility] Basophil percentageon 2021 Basophil percentage 3.3 mg/dL 2.5-4.9 [facility] Work Phone: Chloride [Moles/Vol] 111 mmol/L 98-107 [facility] Work Phone: [phone] Glucose [Mass/Vol] 86 mg/dL 74-106 [facility] Work Phone: [phone] Potassium [Moles/Vol] 3.7 mmol/L 3.5-5.1 [facility] Work Phone: Sodium [Moles/Vol] 143 mmol/L 136-145 [facility] Work Phone: WBC (Bld) [#/Vol] 6.9 10*3/uL 4.4-11.0 [facility] Work Phone: Blood erythrocytes count (nu mber/volume)on 04-12-2022 RBC (Bld) [#/Vol] 4.29 10*6/uL 4.6-6.2 [facility] Work Phone: [phone] Blood hemoglobin measurement (mass/volume)on 04-12-2022 Hemoglobin (Bld) [Mass/Vol] 13.3 g/dL 13.0-16.5 [facility] Work Phone: [phone] Blood platelet mean volumeon 04-12-2022 Platelet mean volume (Bld) [Entitic vol] 11.2 fL 6.2-12.0 [facility] Work Phone: [phone] Determination of erythrocyte mean corpuscular volume (MCV)on 04-12-2022 MCV (RBC) [Entitic vol] 94.2 fL 80-94 [facility] Work Phone: [phone] Hematocrit Auto (Bld) [Volum e fraction]on 04-12-2022 Hematocrit (Bld) [Volume fraction] 40.4 % 40-54 [facility] Work Phone: Laboratory - Chemistry and C hemistry - challengeon 04-12-2022 CO2 [Moles/Vol] 29.0 mmol/L 21.0-32.0 [facility] Work Phone: [phone] Urea nitrogen/Creatinine [Mass ratio] 12.0 mg/mg 10-20 [facility] Work Phone: [phone] Laboratory - Hematology and Cell countson 04-12-2022 Erythrocyte distribution width (RBC) [Entitic vol] 54.0 fL 35.1-43.9 [facility] Work Phone: [phone] Erythrocyte distribution width (RBC) [Ratio] 15.6 % 11.6-14.6 [facility] Work Phone: [phone] MCH (RBC) [Entitic mass] 31.0 pg 27.0-32.0 [facility] Work Phone: [phone] MCHC Auto (RBC) [Mass/Vol]on 04-12-2022 MCHC (RBC) [Mass/Vol] 32.9 g/dL 32-36 [facility] Work Phone: No Panel Informationon 04-12 Estimated GFR (MDRD) Amer 52 mL/min >60 [facility] Work Phone: Comment on above: GFR Calc Estimated GFR (MDRD) Non-Af Amer 43 mL/min >60 [facility] Work Phone: Comment on above: Non- GFR Calc Parathyroid Hormone (Intact) 52.7 pg/mL 18.4-80.1 [facility] Work Phone: Platelets bldon 04-12-2022 Platelets (Bld) [#/Vol] 198 10*3/uL 150-450 [facility] Work Phone: Serum or plasma albumin amanda urement (mass/volume)on 04-12-2022 Albumin [Mass/Vol] 3.6 g/dL 3.2-5.0 [facility] Work Phone: Serum or plasma calcium amanda urement (mass/volume)on 04-12-2022 Calcium [Mass/Vol] 8.7 mg/dL 8.5-10.1 [facility] Work Phone: Serum or plasma creatinine m easurement (mass/volume)on 04-12-2022 Creatinine [Mass/Vol] 1.66 mg/dL 0.70-1.30 [facility] Work Phone: Comment on above: The validity of the calculated GFR & GFRAA in patients over 70 years has not been determined. Clinical correlation is essential. Serum or plasma urea nitroge n measurement (mass/volume)on 04-12-2022 Urea nitrogen [Mass/Vol] 20 mg/dL 7-18 [facility] Work Phone: Urine creatinine measurement (mass/volume)on 04-12-2022 Creatinine (U) [Mass/Vol] 78.70 mg/dL NO RANGE EST. [facility] Work Phone: Urine protein measurement (m ass/volume)on 04-12-2022 Protein (U) [Mass/Vol] 63.3 mg/dL 0.0-11.8 [facility] Work Phone: Urine protein/creatinine mas s ratioon 04-12-2022 Protein/Creatinine (U) [Mass ratio] 804 mg/g CRE 0-200 [facility] Work Phone: Absolute lymphocyte counton 03-28-2022 Lymphocytes Auto (Unsp spec) [#/Vol] 2.57 10*3/uL 0.83-4.51 [facility] Work Phone: Basophil percentageon 2021 Basophils/100 WBC (Bld) 0.3 % 0-1 [facility] Work Phone: Bilirubin [Mass/Vol] 0.70 mg/dL 0.20-1.00 [facility] Work Phone: Comment on above: For patients on eltr ombopag therapy, use of Dimension [place] TBIL is not recommended. Chloride [Moles/Vol] 110 mmol/L 98-107 [facility] Work Phone: Eosinophils/100 WBC (Bld) 2.9 % 0-5 [facility] Work Phone: Glucose [Mass/Vol] 115 mg/dL 74-106 [facility] Work Phone: Comment on above: Fasting Glucose resu lt from 100 to 125 mg/dL suggests IMPAIRED HOMEOSTASIS per A.D.A. criteria. Neutrophils (Bld) [#/Vol] 4.0 10*3/uL 2.0-7.7 [facility] Work Phone: Neutrophils/100 WBC (Bld) 52.6 % 47-70 [facility] Work Phone: Potassium [Moles/Vol] 3.8 mmol/L 3.5-5.1 [facility] Work Phone: Protein [Mass/Vol] 7.3 g/dL 6.4-8.2 [facility] Work Phone: Sodium [Moles/Vol] 143 mmol/L 136-145 [facility] Work Phone: WBC (Bld) [#/Vol] 7.5 10*3/uL 4.4-11.0 [facility]: [phone] Blood erythrocytes count (nu mber/volume)on 03-28-2022 RBC (Bld) [#/Vol] 4.21 10*6/uL 4.6-6.2 [facility]: Blood hemoglobin measurement (mass/volume)on 03-28-2022 Hemoglobin (Bld) [Mass/Vol] 12.9 g/dL 13.0-16.5 [facility] Work Phone: [phone] Blood lymphocytes/100 leukoc yteson 03-28-2022 Lymphocytes/100 WBC (Bld) 34.1 % 19-41 [facility] Work Phone: [phone] Blood monocytes/100 leukocyt eson 03-28-2022 Monocytes/100 WBC (Bld) 9.8 % 0-10 [facility] Work Phone: [phone] Blood platelet mean volumeon 03-28-2022 Platelet mean volume (Bld) [Entitic vol] 12.0 fL 6.2-12.0 [facility] Work Phone: [phone] Determination of erythrocyte mean corpuscular volume (MCV)on 03-28-2022 MCV (RBC) [Entitic vol] 95.5 fL 80-94 [facility] Work Phone: Hematocrit Auto (Bld) [Volum e fraction]on 03-28-2022 Hematocrit (Bld) [Volume fraction] 40.2 % 40-54 [facility] Work Phone: Laboratory - Chemistry and C hemistry - challengeon 03-28-2022 ALP [Catalytic activity/Vol] 60 U/L 45-117 [facility] Work Phone: [phone] ALT [Catalytic activity/Vol] 35 U/L 16-61 [facility] Work Phone: [phone] CO2 [Moles/Vol] 28.0 mmol/L 21.0-32.0 [facility] Work Phone: Globulin (S) [Mass/Vol] 3.8 g/dL 2.2-4.2 [facility] Work Phone: [phone] Urea nitrogen/Creatinine [Mass ratio] 11.4 mg/mg 10-20 [facility] Work Phone: [phone] Laboratory - Hematology and Cell countson 03-28-2022 Erythrocyte distribution width (RBC) [Entitic vol] 55.7 fL 35.1-43.9 [facility] Work Phone: [phone] Erythrocyte distribution width (RBC) [Ratio] 15.8 % 11.6-14.6 [facility] Work Phone: [phone] Immature granulocytes/100 WBC (Bld) 0.300 % 0.0-0.9 [facility] Work Phone: [phone] Comment on above: IG% - Immature Granu locytes (promyelocytes, myelocytes and metamyelocytes) > 1% indicates that a LEFT SHIFT is Present. MCH (RBC) [Entitic mass] 30.6 pg 27.0-32.0 [facility] Work Phone: [phone] Nucleated RBC/100 WBC (Bld) [Ratio] 0 % 0-5 [facility] Work Phone: [phone] MCHC Auto (RBC) [Mass/Vol]on 03-28-2022 MCHC (RBC) [Mass/Vol] 32.1 g/dL 32-36 [facility] Work Phone: [phone] Panel Informationon 03-28 Estimated GFR (MDRD) Amer 55 mL/min >60 [facility] Work Phone: [phone] Comment on above: GFR Calc Estimated GFR (MDRD) Non-Af Amer 45 mL/min >60 [facility] Work Phone: [phone] Comment on above: Non- GFR Calc Platelets bldon 03-28-2022 Platelets (Bld) [#/Vol] 202 10*3/uL 150-450 [facility] Work Phone: [phone] Serum or plasma albumin amanda urement (mass/volume)on 03-28-2022 Albumin [Mass/Vol] 3.5 g/dL 3.2-5.0 [facility] Work Phone: Serum or plasma albumin/glob ulin mass ratioon 03-28-2022 Albumin/Globulin [Mass ratio] 0.9 {ratio} 0.9-2.4 [facility] Work Phone: Serum or plasma calcium amanda urement (mass/volume)on 03-28-2022 Calcium [Mass/Vol] 8.5 mg/dL 8.5-10.1 [facility] Work Phone: [phone] Serum or plasma creatinine m easurement (mass/volume)on 03-28-2022 Creatinine [Mass/Vol] 1.58 mg/dL 0.70-1.30 [facility] Work Phone: Comment on above: The validity of the calculated GFR & GFRAA in patients over 70 years has not been determined. Clinical correlation is essential. Serum or plasma urea nitroge n measurement (mass/volume)on 03-28-2022 Urea nitrogen [Mass/Vol] 18 mg/dL 7-18 [facility] Work Phone: Thin prep Papanicolaou smear with manual screeningon 03-28-2022 Thin prep Papanicolaou smear with manual screening 22 U/L 15-37 [facility] Work Phone: Thin prep Papanicolaou smear with manual screening 5 5-15 [facility] Work Phone: Absolute lymphocyte counton 02-13-2022 Lymphocytes Auto (Unsp spec) [#/Vol] 2.00 10*3/uL 0.83-4.51 [facility] Work Phone: Basophil percentageon 2021 Basophils/100 WBC (Bld) 0.3 % 0-1 [facility] Work Phone: Chloride [Moles/Vol] 109 mmol/L 98-107 [facility] Work Phone: Eosinophils/100 WBC (Bld) 2.3 % 0-5 [facility] Work Phone: Glucose [Mass/Vol] 153 mg/dL 74-106 [facility] Work Phone: Comment on above: Fasting Glucose resu lt greater than or equal to 126 mg/dL suggests DIABETES MELLITUS per A.D.A. criteria. Neutrophils (Bld) [#/Vol] 4.6 10*3/uL 2.0-7.7 [facility] Work Phone: Neutrophils/100 WBC (Bld) 61.9 % 47-70 [facility] Work Phone: [phone] Potassium [Moles/Vol] 3.8 mmol/L 3.5-5.1 [facility] Work Phone: [phone] Sodium [Moles/Vol] 141 mmol/L 136-145 [facility] Work Phone: [phone] WBC (Bld) [#/Vol] 7.4 10*3/uL 4.4-11.0 [facility] Work Phone: [phone] Blood erythrocytes count (nu mber/volume)on 02-13-2022 RBC (Bld) [#/Vol] 4.47 10*6/uL 4.6-6.2 [facility] Work Phone: [phone] Blood hemoglobin measurement (mass/volume)on 02-13-2022 Hemoglobin (Bld) [Mass/Vol] 13.9 g/dL 13.0-16.5 [facility] Work Phone: [phone] Blood lymphocytes/100 leukoc yteson 02-13-2022 Lymphocytes/100 WBC (Bld) 27.2 % 19-41 [facility] Work Phone: Blood monocytes/100 leukocyt eson 02-13-2022 Monocytes/100 WBC (Bld) 8.2 % 0-10 [facility] Work Phone: Blood platelet mean volumeon 02-13-2022 Platelet mean volume (Bld) [Entitic vol] 11.1 fL 6.2-12.0 [facility] Work Phone: Determination of erythrocyte mean corpuscular volume (MCV)on 02-13-2022 MCV (RBC) [Entitic vol] 92.2 fL 80-94 [facility] Work Phone: [phone] Hematocrit Auto (Bld) [Volum e fraction]on 02-13-2022 Hematocrit (Bld) [Volume fraction] 41.2 % 40-54 [facility] Work Phone: [phone] Laboratory - Chemistry and C hemistry - challengeon 02-13-2022 CO2 [Moles/Vol] 28.0 mmol/L 21.0-32.0 [facility] Work Phone: [phone] Urea nitrogen/Creatinine [Mass ratio] 11.3 mg/mg 10-20 [facility] Work Phone: [phone] Laboratory - Hematology and Cell countson 02-13-2022 Erythrocyte distribution width (RBC) [Entitic vol] 54.5 fL 35.1-43.9 [facility] Work Phone: [phone] Erythrocyte distribution width (RBC) [Ratio] 15.9 % 11.6-14.6 [facility] Work Phone: [phone] Immature granulocytes/100 WBC (Bld) 0.100 % 0.0-0.9 [facility] Work Phone: [phone] Comment on above: IG% - Immature Granu locytes (promyelocytes, myelocytes and metamyelocytes) > 1% indicates that a LEFT SHIFT is Present. MCH (RBC) [Entitic mass] 31.1 pg 27.0-32.0 [facility] Work Phone: [phone] Nucleated RBC/100 WBC (Bld) [Ratio] 0 % 0-5 [facility] Work Phone: [phone] MCHC Auto (RBC) [Mass/Vol]on 02-13-2022 MCHC (RBC) [Mass/Vol] 33.7 g/dL 32-36 [facility] Work Phone: [phone] Panel Informationon 02-13 Estimated GFR (MDRD) Amer 55 mL/min >60 [facility] Work Phone: [phone] Comment on above: GFR Calc Estimated GFR (MDRD) Non-Af Amer 45 mL/min >60 [facility] Work Phone: Comment on above: Non- GFR Calc Thyroid Stimulating Hormone (TSH) 3.71 uIU/mL 0.358-3.74 [facility] Work Phone: Platelets bldon 02-13-2022 Platelets (Bld) [#/Vol] 209 10*3/uL 150-450 [facility] Work Phone: [phone] Serum or plasma calcium amanda urement (mass/volume)on 02-13-2022 Calcium [Mass/Vol] 8.6 mg/dL 8.5-10.1 oste [facility] Work Phone: [phone] Serum or plasma creatinine m easurement (mass/volume)on 02-13-2022 Creatinine [Mass/Vol] 1.59 mg/dL 0.70-1.30 [facility] Work Phone: Comment on above: The validity of the calculated GFR & GFRAA in patients over 70 years has not been determined. Clinical correlation is essential. Serum or plasma urea nitroge n measurement (mass/volume)on 02-13-2022 Urea nitrogen [Mass/Vol] 18 mg/dL 7-18 [facility] Work Phone: Thin prep Papanicolaou smear with manual screeningon 02-13-2022 Thin prep Papanicolaou smear with manual screening 4 5-15 [facility] Work Phone: No Panel Informationon 01-11 Prostate Specific Antigen Total 6.33 ng/mL 0.0-4.0 [facility] Work Phone: Comment on above: This test was perfor med using the TPSA assay method [facility] the[facility] system. Values obtained with differentassay methods cannot be used interchangably.When changing PSA assays in the course of monitoring apatient, additional sequential testing should be carriedout to confirm baseline values. Absolute lymphocyte counton 12-23-2021 Lymphocytes Auto (Unsp spec) [#/Vol] 2.19 10*3/uL 0.83-4.51 [facility] Work Phone: Basophil percentageon 2021 Basophils/100 WBC (Bld) 0.4 % 0-1 [facility] Work Phone: Chloride [Moles/Vol] 110 mmol/L 98-107 [facility] Work Phone: Eosinophils/100 WBC (Bld) 2.3 % 0-5 [facility] Work Phone: Glucose [Mass/Vol] 134 mg/dL 74-106 [facility] Work Phone: Comment on above: Fasting Glucose resu lt greater than or equal to 126 mg/dL suggests DIABETES MELLITUS per A.D.A. criteria. Neutrophils (Bld) [#/Vol] 4.2 10*3/uL 2.0-7.7 [facility] Work Phone: Neutrophils/100 WBC (Bld) 57.5 % 47-70 [facility] Work Phone: Potassium [Moles/Vol] 3.6 mmol/L 3.5-5.1 [facility] Work Phone: Sodium [Moles/Vol] 142 mmol/L 136-145 [facility] Work Phone: WBC (Bld) [#/Vol] 7.3 10*3/uL 4.4-11.0 [facility] Work Phone: Blood erythrocytes count (nu mber/volume)on 12-23-2021 RBC (Bld) [#/Vol] 4.37 10*6/uL 4.6-6.2 [facility] Work Phone: Blood hemoglobin measurement (mass/volume)on 12-23-2021 Hemoglobin (Bld) [Mass/Vol] 13.2 g/dL 13.0-16.5 [facility] Work Phone: Blood lymphocytes/100 leukoc yteson 12-23-2021 Lymphocytes/100 WBC (Bld) 30.2 % 19-41 [facility] Work Phone: Blood monocytes/100 leukocyt eson 12-23-2021 Monocytes/100 WBC (Bld) 9.5 % 0-10 [facility] Work Phone: [phone] Blood platelet mean volumeon 12-23-2021 Platelet mean volume (Bld) [Entitic vol] 11.1 fL 6.2-12.0 [facility] Work Phone: [phone] Determination of erythrocyte mean corpuscular volume (MCV)on 12-23-2021 MCV (RBC) [Entitic vol] 91.3 fL 80-94 [facility] Work Phone: [phone] Glucose Glucometer (BldC) [M ass/Vol]on 12-23-2021 Glucose [Mass/Vol] 124 mg/dL 74-106 [facility] Work Phone: [phone] Comment on above: MANAGEMENT OF PATIEN T CARE PER NURSING PROTOCOL Hematocrit Auto (Bld) [Volum e fraction]on 12-23-2021 Hematocrit (Bld) [Volume fraction] 39.9 % 40-54 [facility] Work Phone: [phone] Laboratory - Chemistry and C hemistry - challengeon 12-23-2021 CO2 [Moles/Vol] 28.0 mmol/L 21.0-32.0 [facility] Work Phone: [phone] Urea nitrogen/Creatinine [Mass ratio] 20.1 mg/mg 10-20 [facility] Work Phone: [phone] Laboratory - Hematology and Cell countson 12-23-2021 Erythrocyte distribution width (RBC) [Entitic vol] 51.0 fL 35.1-43.9 [facility] Work Phone: [phone] Erythrocyte distribution width (RBC) [Ratio] 15.3 % 11.6-14.6 [facility] Work Phone: [phone] Immature granulocytes/100 WBC (Bld) 0.100 % 0.0-0.9 [facility] Work Phone: [phone] Comment on above: IG% - Immature Granu locytes (promyelocytes, myelocytes and metamyelocytes) > 1% indicates that a LEFT SHIFT is Present. MCH (RBC) [Entitic mass] 30.2 pg 27.0-32.0 [facility] Work Phone: Nucleated RBC/100 WBC (Bld) [Ratio] 0 % 0-5 [facility] Work Phone: MCHC Auto (RBC) [Mass/Vol]on 12-23-2021 MCHC (RBC) [Mass/Vol] 33.1 g/dL 32-36 [facility] Work Phone: No Panel Informationon 12-23 Estimated Creatinine Clearance Calc 34.22 ml/min [facility] Work Phone: Estimated GFR (MDRD) Amer 51 mL/min >60 [facility] Work Phone: Comment on above: GFR Calc Estimated GFR (MDRD) Non-Af Amer 42 mL/min >60 [facility] Work Phone: Comment on above: Non- GFR Calc Platelets bldon 12-23-2021 Platelets (Bld) [#/Vol] 179 10*3/uL 150-450 [facility] Work Phone: Serum or plasma calcium amanda urement (mass/volume)on 12-23-2021 Calcium [Mass/Vol] 8.3 mg/dL 8.5-10.1 [facility] Work Phone: Serum or plasma creatinine m easurement (mass/volume)on 12-23-2021 Creatinine [Mass/Vol] 1.69 mg/dL 0.70-1.30 [facility] Work Phone: Comment on above: The validity of the calculated GFR & GFRAA in patients over 70 years has not been determined. Clinical correlation is essential. Serum or plasma urea nitroge n measurement (mass/volume)on 12-23-2021 Urea nitrogen [Mass/Vol] 34 mg/dL 7-18 [facility] Work Phone: Thin prep Papanicolaou smear with manual screeningon 12-23-2021 Thin prep Papanicolaou smear with manual screening 4 5-15 [facility] Work Phone: No Panel Informationon 12-21 Troponin I High Sensitivity 16 pg/mL 3.0-78.0 [facility] Work Phone: Comment on above: Please Note: New Vira t Units and Gender Specific Reference Ranges. For more information see Policy Stat Procedure [place] High Sensitivity Troponin (TNIH) and attachments. Absolute lymphocyte counton 12-13-2021 Lymphocytes Auto (Unsp spec) [#/Vol] 2.75 10*3/uL 0.83-4.51 [facility] Work Phone: Basophil percentageon 2021 Basophils/100 WBC (Bld) 0.2 % 0-1 [facility] Work Phone: Chloride [Moles/Vol] 107 mmol/L 98-107 [facility] Work Phone: Eosinophils/100 WBC (Bld) 2.0 % 0-5 [facility] Work Phone: Glucose [Mass/Vol] 125 mg/dL 74-106 [facility] Work Phone: Comment on above: Fasting Glucose resu lt from 100 to 125 mg/dL suggests IMPAIRED HOMEOSTASIS per A.D.A. criteria. Neutrophils (Bld) [#/Vol] 4.5 10*3/uL 2.0-7.7 [facility] Work Phone: Neutrophils/100 WBC (Bld) 53.9 % 47-70 [facility] Work Phone: Potassium [Moles/Vol] 3.8 mmol/L 3.5-5.1 [facility] Work Phone: Sodium [Moles/Vol] 140 mmol/L 136-145 [facility] Work Phone: WBC (Bld) [#/Vol] 8.3 10*3/uL 4.4-11.0 [facility] Work Phone: Blood erythrocytes count (nu mber/volume)on 12-13-2021 RBC (Bld) [#/Vol] 4.81 10*6/uL 4.6-6.2 [facility] Work Phone: Blood hemoglobin measurement (mass/volume)on 12-13-2021 Hemoglobin (Bld) [Mass/Vol] 14.7 g/dL 13.0-16.5 [facility] Work Phone: Blood lymphocytes/100 leukoc yteson 12-13-2021 Lymphocytes/100 WBC (Bld) 33.0 % 19-41 [facility] Work Phone: Blood monocytes/100 leukocyt eson 12-13-2021 Monocytes/100 WBC (Bld) 10.7 % 0-10 [facility] Work Phone: Blood platelet mean volumeon 12-13-2021 Platelet mean volume (Bld) [Entitic vol] 10.9 fL 6.2-12.0 [facility] Work Phone: Determination of erythrocyte mean corpuscular volume (MCV)on 12-13-2021 MCV (RBC) [Entitic vol] 90.0 fL 80-94 [facility] Work Phone: Hematocrit Auto (Bld) [Volum e fraction]on 12-13-2021 Hematocrit (Bld) [Volume fraction] 43.3 % 40-54 [facility] Work Phone: INR in Blood by Coagulation assayon 12-13-2021 INR Coag (Bld) [Relative time] 1.1 {INR} [facility] Work Phone: Laboratory - Chemistry and C hemistry - challengeon 12-13-2021 CO2 [Moles/Vol] 29.0 mmol/L 21.0-32.0 [facility] Work Phone: Urea nitrogen/Creatinine [Mass ratio] 9.2 mg/mg 10-20 [facility] Work Phone: Laboratory - Coagulationon 0 12-13-2021 aPTT Coag (Bld) [Time] [facility]3 [facility] Work Phone: PT Coag (PPP) [Time] 13.8 s 11.7-14.9 [facility] Work Phone: Laboratory - Hematology and Cell countson 12-13-2021 Erythrocyte distribution width (RBC) [Entitic vol] 50.0 fL 35.1-43.9 [facility] Work Phone: [phone] Erythrocyte distribution width (RBC) [Ratio] 15.1 % 11.6-14.6 [facility] Work Phone: [phone] Immature granulocytes/100 WBC (Bld) 0.200 % 0.0-0.9 [facility] Work Phone: [phone] Comment on above: IG% - Immature Granu locytes (promyelocytes, myelocytes and metamyelocytes) > 1% indicates that a LEFT SHIFT is Present. MCH (RBC) [Entitic mass] 30.6 pg 27.0-32.0 [facility] Work Phone: Nucleated RBC/100 WBC (Bld) [Ratio] 0 % 0-5 [facility] Work Phone: [phone] MCHC Auto (RBC) [Mass/Vol]on 12-13-2021 MCHC (RBC) [Mass/Vol] 33.9 g/dL 32-36 [facility] Work Phone: No Panel Informationon 12-13 Estimated GFR (MDRD) Amer 49 mL/min >60 [facility] Work Phone: Comment on above: GFR Calc Estimated GFR (MDRD) Non-Af Amer 41 mL/min >60 [facility] Work Phone: [phone] Comment on above: Non- GFR Calc Platelets bldon 12-13-2021 Platelets (Bld) [#/Vol] 199 10*3/uL 150-450 [facility] Work Phone: [phone] Serum or plasma calcium amanda urement (mass/volume)on 12-13-2021 Calcium [Mass/Vol] 9.1 mg/dL 8.5-10.1 [facility] Work Phone: [phone] Serum or plasma creatinine m easurement (mass/volume)on 12-13-2021 Creatinine [Mass/Vol] 1.74 mg/dL 0.70-1.30 [facility] Work Phone: Comment on above: The validity of the calculated GFR & GFRAA in patients over 70 years has not been determined. Clinical correlation is essential. Serum or plasma urea nitroge n measurement (mass/volume)on 12-13-2021 Urea nitrogen [Mass/Vol] 16 mg/dL 7-18 [facility] Work Phone: Thin prep Papanicolaou smear with manual screeningon 12-13-2021 Thin prep Papanicolaou smear with manual screening 4 5-15 [facility] Work Phone: Basophil percentageon 2021 Basophil percentage 2.9 mg/dL 2.5-4.9 [facility] Work Phone: [phone] Chloride [Moles/Vol] 109 mmol/L 98-107 [facility] Work Phone: [phone] Glucose [Mass/Vol] 127 mg/dL 74-106 [facility] Work Phone: Comment on above: Fasting Glucose resu lt greater than or equal to 126 mg/dL suggests DIABETES MELLITUS per A.D.A. criteria. Potassium [Moles/Vol] 3.7 mmol/L 3.5-5.1 [facility] Work Phone: Sodium [Moles/Vol] 142 mmol/L 136-145 [facility] Work Phone: Laboratory - Chemistry and C hemistry - challengeon 10-13-2021 CO2 [Moles/Vol] 29.0 mmol/L 21.0-32.0 [facility] Work Phone: Urea nitrogen/Creatinine [Mass ratio] 12.7 mg/mg 10-20 [facility] Work Phone: No Panel Informationon 10-13 Estimated Creatinine Clearance Calc 35.88 ml/min [facility] Work Phone: Estimated GFR (MDRD) Amer 58 mL/min >60 [facility] Work Phone: Comment on above: GFR Calc Estimated GFR (MDRD) Non-Af Amer 48 mL/min >60 [facility] Work Phone: Comment on above: Non- GFR Calc Serum or plasma albumin amanda urement (mass/volume)on 10-13-2021 Albumin [Mass/Vol] 3.8 g/dL 3.2-5.0 [facility] Work Phone: [phone] Serum or plasma calcium amanda urement (mass/volume)on 10-13-2021 Calcium [Mass/Vol] 9.0 mg/dL 8.5-10.1 [facility] Work Phone: [phone] Serum or plasma creatinine m easurement (mass/volume)on 10-13-2021 Creatinine [Mass/Vol] 1.50 mg/dL 0.70-1.30 [facility] Work Phone: Comment on above: The validity of the calculated GFR & GFRAA in patients over 70 years has not been determined. Clinical correlation is essential. Serum or plasma urea nitroge n measurement (mass/volume)on 10-13-2021 Urea nitrogen [Mass/Vol] 19 mg/dL 7-18 [facility] Work Phone: Urine creatinine measurement (mass/volume)on 10-13-2021 Creatinine (U) [Mass/Vol] 45.40 mg/dL NO RANGE EST. [facility] Work Phone: Urine protein measurement (m ass/volume)on 10-13-2021 Protein (U) [Mass/Vol] 65.4 mg/dL 0.0-11.8 [facility] Work Phone: [phone] Urine protein/creatinine mas s ratioon 10-13-2021 Protein/Creatinine (U) [Mass ratio] 1441 mg/g CRE 0-200 [facility] Work Phone: [phone] Absolute lymphocyte counton 09-26-2021 Lymphocytes Auto (Unsp spec) [#/Vol] 2.16 10*3/uL 0.83-4.51 [facility] Work Phone: [phone] Basophil percentageon 2020 Bilirubin [Mass/Vol] 0.30 mg/dL 0.20-1.00 [facility] Work Phone: Comment on above: For patients on eltr ombopag therapy, use of Dimension [place] TBIL is not recommended. Chloride [Moles/Vol] 107 mmol/L 98-107 [facility] Work Phone: Eosinophils/100 WBC (Bld) 3.4 % 0-5 [facility] Work Phone: Glucose [Mass/Vol] 171 mg/dL 74-106 [facility] Work Phone: Comment on above: Fasting Glucose resu lt greater than or equal to 126 mg/dL suggests DIABETES MELLITUS per A.D.A. criteria.Please note revised GLUCOSE reference range effective 2017. Neutrophils (Bld) [#/Vol] 2.8 10*3/uL 2.0-7.7 [facility] Work Phone: Potassium [Moles/Vol] 3.7 mmol/L 3.5-5.1 [facility] Work Phone: Protein [Mass/Vol] 7.5 g/dL 6.4-8.2 [facility] Work Phone: Sodium [Moles/Vol] 144 mmol/L 136-145 [facility] Work Phone: WBC (Bld) [#/Vol] 5.8 10*3/uL 4.4-11.0 [facility] Work Phone: Blood erythrocytes count (nu mber/volume)on 09-26-2021 RBC (Bld) [#/Vol] 4.35 10*6/uL 4.6-6.2 [facility] Work Phone: Blood hemoglobin measurement (mass/volume)on 09-26-2021 Hemoglobin (Bld) [Mass/Vol] 13.2 g/dL 13.0-16.5 [facility] Work Phone: Blood lymphocytes/100 leukoc yteson 09-26-2021 Lymphocytes/100 WBC (Bld) 37.1 % 19-41 [facility] Work Phone: Blood monocytes/100 leukocyt eson 09-26-2021 Monocytes/100 WBC (Bld) 10.0 % 0-10 [facility] Work Phone: Blood platelet mean volumeon 09-26-2021 Platelet mean volume (Bld) [Entitic vol] 10.7 fL 6.2-12.0 [facility] Work Phone: Determination of erythrocyte mean corpuscular volume (MCV)on 09-26-2021 MCV (RBC) [Entitic vol] 94.0 fL 80-94 [facility] Work Phone: Hematocrit Auto (Bld) [Volum e fraction]on 09-26-2021 Hematocrit (Bld) [Volume fraction] 40.9 % 40-54 [facility] Work Phone: Laboratory - Chemistry and C hemistry - challengeon 09-26-2021 ALP [Catalytic activity/Vol] 57 U/L 45-117 [facility] Work Phone: ALT [Catalytic activity/Vol] 35 U/L 16-61 [facility] Work Phone: CO2 [Moles/Vol] 30.0 mmol/L 21.0-32.0 [facility] Work Phone: Globulin (S) [Mass/Vol] 4.1 g/dL 2.2-4.2 [facility] Work Phone: Urea nitrogen/Creatinine [Mass ratio] 11.0 mg/mg 10-20 [facility] Work Phone: Laboratory - Hematology and Cell countson 09-26-2021 Basophils/100 WBC (Unsp spec) 0.3 % 0-1 [facility] Work Phone: Erythrocyte distribution width (RBC) [Entitic vol] 50.8 fL 35.1-43.9 [facility] Work Phone: Erythrocyte distribution width (RBC) [Ratio] 14.6 % 11.6-14.6 [facility] Work Phone: Immature granulocytes/100 WBC (Bld) 0.300 % 0.0-0.9 [facility] Work Phone: Comment on above: IG% - Immature Granu locytes (promyelocytes, myelocytes and metamyelocytes) > 1% indicates that a LEFT SHIFT is Present. MCH (RBC) [Entitic mass] 30.3 pg 27.0-32.0 [facility] Work Phone: [phone] Neutrophils/100 WBC (Bld) 48.9 % 47-70 [facility] Work Phone: [phone] Nucleated RBC/100 WBC (Bld) [Ratio] 0 % 0-5 [facility] Work Phone: MCHC Auto (RBC) [Mass/Vol]on 09-26-2021 MCHC (RBC) [Mass/Vol] 32.3 g/dL 32-36 [facility] Work Phone: No Panel Informationon 09-26 Estimated GFR (MDRD) Amer 60 mL/min >60 [facility] Work Phone: Comment on above: GFR Calc Estimated GFR (MDRD) Non-Af Amer 50 mL/min >60 [facility] Work Phone: Comment on above: Non- GFR Calc Platelets bldon 09-26-2021 Platelets (Bld) [#/Vol] 190 10*3/uL 150-450 [facility] Work Phone: Serum or plasma albumin amanda urement (mass/volume)on 09-26-2021 Albumin [Mass/Vol] 3.4 g/dL 3.2-5.0 [facility] Work Phone: [phone] Serum or plasma albumin/glob ulin mass ratioon 09-26-2021 Albumin/Globulin [Mass ratio] 0.8 {ratio} 0.9-2.4 [facility] Work Phone: [phone] Serum or plasma calcium amanda urement (mass/volume)on 09-26-2021 Calcium [Mass/Vol] 8.8 mg/dL 8.5-10.1 [facility] Work Phone: Serum or plasma creatinine m easurement (mass/volume)on 09-26-2021 Creatinine [Mass/Vol] 1.46 mg/dL 0.70-1.30 [facility] Work Phone: Comment on above: The validity of the calculated GFR & GFRAA in patients over 70 years has not been determined. Clinical correlation is essential. Serum or plasma urea nitroge n measurement (mass/volume)on 09-26-2021 Urea nitrogen [Mass/Vol] 16 mg/dL 7-18 [facility] Work Phone: Thin prep Papanicolaou smear with manual screeningon 09-26-2021 Thin prep Papanicolaou smear with manual screening 29 U/L 15-37 [facility] Work Phone: Thin prep Papanicolaou smear with manual screening 7 5-15 [facility] Work Phone: CASE MANAGEMon 02-24-2020 CASE MANAGEM HNO ID: [id number] Author: Brandee HolmanRn) KRZYSZTOF Bellamy Service: Care Management Author Type: Registered Nurse Type: Care Mgt Progress Note Filed: 02/24/2020 2:40 PM Note Text: CARE MANAGEMENT DISCHARGE NOTE SERVICE DATE: 02/24/2020 SERVICE TIME: 2:39 PM LOS: 2 days Admission Date: 02/22/2020 DISCHARGE ARRANGEMENT (list agency and phone number) Discharge Arrangement: Home Provider Name: na Phone: na CAREGIVER ASSESSMENT: HANDOFF COMMUNICATION: TRANSPORTATION ARRANGEMENTS: Transportation Arrangements: Car ADDITIONAL CONTACT RESOURCES: . Pt is D/C to home with and no needs identified. SIGNATURE: Brandee Bellamy RN PATIENT NAME: Megan Gimenez DATE: February 24, 2020 TIME: 2:39 PM PAGER/CONTACT #: [phone] [facility] CASE MANAGEM HNO ID: [id number] Author: Nadine Ramirez Service: Care Management Author Type: ? 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 Falls appear to be provoked, reports tripped [...] mg by mouth DAILY (6 AM). Ipratropium Liberty (ATROVENT) 0.03 % nasal spray Use 1 Malcom in the nose as directed. glimepiride (AMARYL) [...] up at functional movement disorder clinic at [facility]. PT/OT and disposition as recommended. Will sign off. Please page/call with questions. Arnaud Llanes MD Staff Neurologist Arnaud Llanes MD [facility], Department of Neurology CC: Referring Physician: No referring provider defined for this encounter. PCP: Jayme Yang MD [address] [place] [address] [facility] Glucose Meteron 02-24-2020 Glucose [Mass/Vol] 138 mg/dL High 70-99 [facility] Comment on above: Result Comment: KRZYSZTOF N OTIFIED Performed By: #### G LMET #### [facility] [address] [place] [address] PLAN OF CAREon 02-24-2020 PLAN OF CARE HNO ID: [id number] Author: Morena Szymanski (Pharmacist) Service: Pharmacy Author [...] tablet Commonly known as: HYDRODIURIL, ESIDRIX Ipratropium Liberty 0.03 % nasal spray Commonly known as: ATROVENT isosorbide mononitrate ER 60 mg 24 hr tablet Commonly known as: IMDUR lisinopril 40 mg tablet Commonly known as: ZESTRIL, PRINIVIL metFORMIN 1,000 mg tablet Commonly known as: GLUCOPHAGE rosuvastatin 20 mg tablet Commonly known as: CRESTOR Where to Get Your Medications [facility] [address] [place] [id number] - [address] [place] [address] - [phone] [place] [address] ? polyethylene glycol 3350 17 gram packet ? senna-docusate 8.6-50 mg per tablet [facility] THERAPY NTon 02-24-2020 THERAPY NT HNO ID: [id number] Author: Mamie (Art Museum Docent) FELY Manzanares/GEOGRAPHIC INFORMATION SCIENTIST Service: Speech/Swallow Author Type: Speech Language Pathologist Type: Therapy (PT/OT/Speech/Resp) Filed: 02/24/2020 12:37 PM Note Text: Speech Therapy Treatment SERVICE DATE: 02/24/2020 SERVICE TIME: 1115 to 1132 ROOM: [place] [address] Nursing Recommendations: Reinforce use of swallowing strategies [...] Dysphagia, oral phase Interventions Provided: Dysphagia Therapy (88625) $ Dysphagia Therapy (04719) Billed Units: 1 unit Skilled Interventions: Provided [...] for this therapy evaluation/treatment. SIGNATURE: Mamie Manzanares CCC-GEOGRAPHIC INFORMATION SCIENTIST PATIENT NAME: Megan Gimenez DATE: February 24, 2020 TIME: 12:18 PM [facility] THERAPY NT HNO ID: [id number] Author: Dianna Tidwell Service: Physical Therapy Author Type: Physical Therapist Type: Therapy (PT/OT/Speech/Resp) Filed: 02/24/2020 12:05 PM Note Text: Physical Therapy Evaluation SERVICE DATE: 02/24/2020 SERVICE TIME: 1130 to 1155 ROOM: [place] [address] Recommended Discharge Disposition: Home Recommended Discharge Disposition [...] Diagnosis: Reduced mobility-other Interventions Provided: Evaluation;Therapeutic Exercise (45141) $ Evaluation-Moderate (70152) Billed Units: 1 unit History and examination of body systems see assessment section above. This patient?s clinical presentation is evolving. The patient required a moderate complexity evaluation. Therapeutic Exercise (47292) Treatment Minutes: 8 1 unit Skilled Intervention(s): [...] February 24, 2020 TIME: 12:01 PM [facility] Basic Metabolic Panelon 05-2 Anion gap [Moles/Vol] 14 mmol/L Normal 9-18 [facility] Comment on above: Performed By: #### B MP ####[place] [address] Calcium [Mass/Vol] 8.3 mg/dL Low 8.5-10.2 [facility] Comment on above: Performed By: #### B MP ####[place] [address] Chloride [Moles/Vol] 105 mmol/L Normal 97-105 [facility] Comment on above: Performed By: #### B MP ####[place] [address] CO2 Blood 25 mmol/L Normal 22-30 [facility] Comment on above: Performed By: #### B MP ####[place] [address] Creatinine [Mass/Vol] 1.23 mg/dL High 0.73-1.22 [facility] Comment on above: Performed By: #### B MP ####[address] [address] Glucose [Mass/Vol] 86 mg/dL Normal 74-99 [facility] Comment on above: Result Comment: The [place] Diabetes Association (ADA) provides guidance for cutoff [...] Standards of Medical Care in Diabetes 2016; [place] [employer] Association. Diabetes Care. 2016;39(Suppl 1). Performed By: #### B MP ####[address] [address] Potassium [Moles/Vol] see below Normal 3.7-5.1 [facility] Comment on above: Result Comment: Unab le to assay. Specimen Hemolyzed Performed By: #### B MP ####[address] [address] Sodium [Moles/Vol] 144 mmol/L Normal 136-144 [facility] Comment on above: Performed By: #### B MP ####[address] [address] Urea nitrogen [Mass/Vol] 15 mg/dL Normal 9-24 [facility] Comment on above: Performed By: #### B MP ####[address] [address] Hemogramon 02-23-2020 Erythrocyte distribution width (RBC) [Ratio] 16.6 % High 11.6-14.4 [facility] Comment on above: Performed By: #### C BC1 ####[address] [address] Hematocrit (Bld) [Volume fraction] 37.1 % Low 40.1-51.0 [facility] Comment on above: Performed By: #### C BC1 ####[facility] [place], [place] [address] Hemoglobin (Bld) [Mass/Vol] 12.1 g/dL Low 13.7-17.5 [facility] Comment on above: Performed By: #### C BC1 ####[place] [id number] MCH (RBC) [Entitic mass] 29.1 pg Normal 25.7-32.2 [facility] Comment on above: Performed By: #### C BC1 ####[place] [address] MCHC (RBC) [Mass/Vol] 32.6 % Normal 32.3-36.5 [facility] Comment on above: Performed By: #### C BC1 ####[place] [address] MCV (RBC) [Entitic vol] 89.2 fL Normal 83.2-95.6 [facility] Comment on above: Performed By: #### C BC1 ####[place] [address] Platelet mean volume (Bld) [Entitic vol] 11.2 fL Normal 8.7-12.0 [facility] Comment on above: Performed By: #### C BC1 ####[place] [id number] Platelets (Bld) [#/Vol] 240 thou/cmm Normal 141-365 [facility] Comment on above: Performed By: #### C BC1 ####[address] [address] RBC (Bld) [#/Vol] 4.16 mil/cmm Low 4.63-6.08 [facility] Comment on above: Performed By: #### C BC1 ####[place] [id number] RDW SD 53.9 fl High 36.1-45.8 [facility] Comment on above: Performed By: #### C BC1 ####[facility] [place], [place] [address] WBC (Bld) [#/Vol] 8.26 thou/cmm Normal 4.23-9.07 [facility] Comment on above: Performed By: #### C BC1 ####[facility] [place] [id number] MDRD GFRon 02-23-2020 GFR/1.73 sq M predicted among non-blacks MDRD (S/P/Bld) [Vol rate/Area] 57.28 mL/min/{1.73_m2} Normal >60mL/min/ 1.73m2 [facility] Comment on above: Result Comment: If t he patient is , multiply the result by 1.210. Performed By: #### G LMET #### [facility] [address] [place] [id number] Magnesium Bloodon 02-23-2020 Magnesium [Mass/Vol] 1.7 mg/dL Normal 1.7-2.3 [facility] Comment on above: Performed By: #### M AG ####[place] [id number] NURSING PROGon 02-23-2020 NURSING PROG HNO ID: [id number] Author: Danielle (Rn) KRZYSZTOF Sandoval Service: ? Author Type: Registered Nurse Type: Nursing Progress Note Filed: 02/23/2020 4:12 AM Note Text: Nursing Progress Note Patient Name: Megan Gimenez Patient Location: [id number] Daily Note: 0012; RN paged sound [phone] Jimmy to come see pt due to [...] stating he will be going back to [facility] tomorrow morning. Pt continues to refuse to answer any orientation questions for RN. RN will continue to monitor. This note was completed by: Danielle Sandoval RN [facility] PLAN OF CAREon 02-23-2020 PLAN OF CARE HNO ID: [id number] Author: Arnaud Llanes MD Service: Neurology Stroke [...] Arnaud Llanes MD Staff Neurologist [facility] PROGRESSon 02-23-2020 PROGRESS HNO ID: [id number] Author: Laureano Linton Service: Hospital Medicine Author Type: Physician Type: Progress Notes Filed: 02/23/2020 3:15 PM Note Text: DEPARTMENT OF HOSPITAL MEDICINE PROGRESS NOTE SERVICE DATE: 02/23/2020 SERVICE TIME: 3:01 PM Hospital Medicine/Primary Attending: Laureano Linton MD NIGHT AND WEEKEND COVERAGE: After 7pm please page [phone] CHIEF COMPLAINT: Tremors SUBJECTIVE: Patient is awake [...] reviewed for today's visit: CBC: Recent Labs 02/23/20412 WBC 8.26 RBC 4.16* HB 12.1* HCT 37.1* PLT 240 MCV 89.2 MCH 29.1 MPV 11.2 RDW 16.6* CMP: Recent Labs 02/23/20412 NA 144 K see below CHLOR 105 [...] or extraconal mass. ?Correlate with clinical symptoms Mosaic Layer: HARDIK ? Transcribe Date/Time: Feb 22 2020 [...] 23, 2020 TIME: 3:01 PM PAGER/CONTACT #: [phone] [facility] PROGRESS HNO ID: [id number] Author: Shiv Brown APRN.EMMANUEL Service: Hospital Medicine [...] February 23, 2020 12:29 AM Shiv Brown APRN.WELT STITCH CLEANER [facility] THERAPY NTon 02-23-2020 THERAPY NT HNO ID: [id number] Author: Mamie (Art Museum Docent) FELY Manzanares/GEOGRAPHIC INFORMATION SCIENTIST Service: Speech/Swallow Author Type: Speech Language Pathologist Type: Therapy (PT/OT/Speech/Resp) Filed: 02/23/2020 9:49 AM Note Text: Speech Therapy Clinical Swallow Evaluation SERVICE DATE: 02/23/2020 SERVICE TIME: 09 to 09 ROOM: [place] [address] Nursing Recommendations: Reinforce use of swallowing strategies [...] oral phase Interventions Provided: Clinical Swallow Evaluation (96489) $ Clinical Swallow Evaluation (94584) Billed Units: 1 unit Total Treatment Time [...] for this therapy evaluation/treatment. SIGNATURE: Mamie Manzanares CCC-GEOGRAPHIC INFORMATION SCIENTIST PATIENT NAME: Megan Gimenez DATE: February 23, 2020 TIME: 9:36 AM [facility] ALLIED HEALTHon 02-22-2020 ALLIED HEALTH HNO ID: [id number] Author: Chaplain Wyatt (Chaplain) Service: Spiritual Care Author Type: Paper Goods Machine Operator Type: Allied Health Filed: 02/22/2020 1:21 AM Note Text: SPIRITUALCARE Spiritual Care Visit- Brief Note Name: Megan Gimenez Date: February 22, 2020 Notes: Trauma 2 fall Staff evaluating patient Follow up needed Paper Goods Machine Operator Signature: Chaplain Edmundo To contact the Spiritual Care Department: Please call [phone] or Page the On-Call Paper Goods Machine Operator at pager [phone] Thank you for the opportunity to be of service. This is an electronically created document. IF PRINTED, PLEASE DO NOT REMOVE FROM THE CHART OR MODIFY PRINTED COPY. [facility] Activated PTTon 02-22-2020 aPTT Coag (Bld) [Time] 28.7 s Normal 23.0-32.4 [facility] Comment on above: Result Comment: Unfr actionated [...] laboratory APTT reagent in use throughout the [facility]. Performed By: #### G LMET #### [address] [address] aPTT Coag (Bld) [Time] 29.1 s Normal 23.0-32.4 [facility] Comment on above: Result Comment: Unfr actionated [...] laboratory APTT reagent in use throughout the [facility]. 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 Last discharge within 30 days: No Advance Directive: Current Advance Directive: Health Care Power of Restorative Coordinator;Living Will In Chart: No Occupational Health Physician Attempted to Assist with AD Completion: No [...] Spouse Name of Informant: : Natasha Harmony [phone] Functional Status: Independent Does Patient Currently Receive Any Community Services or Home Care?: None Equipment Prior to Admission: Aerosols/Intermittent positive breathing/Respiratory Treatments;Walker;Glucomet er SOCIAL: Living Arrangements: Home Lives With: Spouse Financial Resources: RetiredPrimary Contact: Extended Emergency Contact Information Primary Emergency Contact: Natasha Gimenez Address: [address] [place] [address] Mobile Relation: Spouse Supportive Patient Contact:: Yes [...] meeting these needs: Home Vs [facility] Patient's perception of need for this admission: Fall, Alt Mental Status Medication Adherance I am convinced of the importance of my prescription medication: 0 - Agree Completely I worry that my prescription medication will do more harm than good to me : 0 - Disagree Completely I feel financially burdened by my ofs-vu-eszdpy expenses for my prescription medication:: 0 - Disagree Completely Risk Score: 0 Patient is categorized as: Low risk < 2 Are you interested in bedside delivery of your medications? No Is Patient Psychosocially Complex?: No ASSESSMENT AND PLAN: Medical Needs: Medical Needs: Two or more chronic diseases Psychosocial Needs: Psychosocial Needs: None FREEDOM OF CHOICE EXPLAINED: Wallace of Choice Given: Yes Level of Care Discussed: Home Care;[facility] Facility Financial Disclosure Provided: Yes Financial Disclosure Comments: Informed of [facility] connected facilities POTENTIAL TRANSITION PLANS Home Care;[facility] Facility/Intermediate Care Facility Information was obtained from [...] 22, 2020 TIME: 12:31 PM PAGER/CONTACT #: [phone] [facility] [address] BRAIN WO IVCONon 02-22-20 CT BRAIN WO IVCON * * *Final Report* * * DATE OF EXAM: Feb 22 2020 1:29AM [facility] 0504 - CT BRAIN WO IVCON [...] soft tissue contusion. No acute intracranial abnormality. Mosaic Layer: PSCB Transcribe Date/Time: Feb 22 2020 1:53A Dictated by : ANA MARIA ISABEL MD This examination was interpreted and the report reviewed and electronically signed by: ANA MARIA ISABEL MD on Feb 22 2020 1:56AM EST Normal [facility] Comprehensive Metabolic Pane chanda 02-22-2020 Albumin [Mass/Vol] 3.5 g/dL Low 3.9-4.9 [facility] Comment on above: Performed By: #### G LMET #### [address] [address] ALP [Catalytic activity/Vol] 44 U/L Normal 38-113 [facility] Comment on above: Performed By: #### G LMET #### [facility] [address] [place], [place] [address] ALT [Catalytic activity/Vol] 35 U/L Normal 10-54 [facility] Comment on above: Performed By: #### G LMET #### [facility] [address] [place], [place] [address] Anion gap [Moles/Vol] 11 mmol/L Normal 9-18 [facility] Comment on above: Performed By: #### G LMET #### [facility] [address] [place], [place] [address] AST [Catalytic activity/Vol] 48 U/L High 14-40 [facility] Comment on above: Performed By: #### G LMET #### [facility] [address] [place], [place] [address] Bilirubin [Mass/Vol] 0.2 mg/dL Normal 0.2-1.3 [facility] Comment on above: Performed By: #### G LMET #### [address], [place] [address] Calcium [Mass/Vol] 8.2 mg/dL Low 8.5-10.2 [facility] Comment on above: Performed By: #### G LMET #### [facility] [address] [place], [place] [address] Chloride [Moles/Vol] 107 mmol/L High 97-105 [facility] Comment on above: Performed By: #### G LMET #### [facility] [address] [place], [place] [address] CO2 Blood 26 mmol/L Normal 22-30 [facility] Comment on above: Performed By: #### G LMET #### [facility] [address] [place], [place] [address] Creatinine [Mass/Vol] 1.42 mg/dL High 0.73-1.22 [facility] Comment on above: Performed By: #### G LMET #### [facility] [address] [place], [place] [address] Glucose [Mass/Vol] 87 mg/dL Normal 74-99 [facility] Comment on above: Result Comment: The [place] Diabetes Association (ADA) provides guidance for cutoff [...] Standards of Medical Care in Diabetes 2016; [place] Diabetes Association. Diabetes Care. 2016;39(Suppl 1). Performed By: #### G LMET #### [facility] [address] [place], [place] [address] Potassium [Moles/Vol] 3.1 mmol/L Low 3.7-5.1 [facility] Comment on above: Performed By: #### G LMET #### [facility] [address] [place], [place] [address] Protein [Mass/Vol] 6.2 g/dL Low 6.3-8.0 [facility] Comment on above: Performed By: #### G LMET #### [facility] [address] [place] [address] Sodium [Moles/Vol] 144 mmol/L Normal 136-144 [facility] Comment on above: Performed By: #### G LMET #### [facility] [address] [place] [address] Urea nitrogen [Mass/Vol] 22 mg/dL Normal 9-24 [facility] Comment on above: Performed By: #### G LMET #### [facility] [address] [place] [address] ED NOTEon 02-22-2020 ED NOTE HNO ID: [id number] Author: Tracie HolmanRn) KRZYSZTOF Steele Service: Emergency Medicine Author Type: Registered Nurse Type: ED Notes Filed: 02/22/2020 2:29 PM Note Text: Krzysztof schwarzre of pts mental status changes and the Dr Linton is awre also pt given 20mg ivp hydralazine. Room is not clean yet [facility] ED NOTE HNO ID: [id number] Author: Tracie Ortega) KRZYSZTOF Steele Service: Emergency Medicine Author Type: Registered Nurse Type: ED Notes Filed: 02/22/2020 2:11 PM Note Text: Dr Linton aware of pts mentation. No new orders at this time. [facility] ED NOTE HNO ID: [id number] Author: Tracie Ortega) Cedric, RN Service: Emergency Medicine Author Type: Registered Nurse Type: ED Notes Filed: 02/22/2020 2:09 PM Note Text: Pt thinks it's 1970 and going to war. Pt states he sees people running at [facility] they are being shot at. [facility] ED NOTE HNO ID: [id number] Author: Tracie Ortega) Cedric, RN Service: Emergency Medicine Author Type: Registered Nurse Type: ED Notes Filed: 02/22/2020 2:07 PM Note Text: Sound paged, pts mental status concerns [facility] ED NOTE HNO ID: [id number] Author: Tracie Ortega) Parsell, RN Service: Emergency Medicine Author Type: Registered Nurse Type: ED Notes Filed: 02/22/2020 1:59 PM Note Text: Updated pts that he has a room assigned and gave room number and floor phone number [facility] ED NOTE HNO ID: [id number] Author: Tracie HolmanRnBritt Steele RN Service: Emergency Medicine Author Type: Registered Nurse Type: ED Notes Filed: 02/22/2020 1:45 PM Note Text: SPOKE TO DR LINTON ABOUT PTS BP, HE WILL REVIEW PTS CHART AND ENTER NEW ORDERS [facility] ED NOTE HNO ID: [id number] Author: Tracie HolmanRn) KRZYSZTOF Steele Service: Emergency Medicine Author Type: Registered Nurse Type: ED Notes Filed: 02/22/2020 1:33 PM Note Text: MD PAGED FOR BP [facility] ED NOTE HNO ID: [id number] Author: Tracie HolmanRnBritt Steele RN Service: Emergency Medicine Author Type: Registered Nurse Type: ED Notes Filed: 02/22/2020 1:06 PM Note Text: RN UNAVAIL FOR REPORT [facility] ED NOTE HNO ID: [id number] Author: Vane Reeder RN Service: Emergency Medicine Author Type: Registered Nurse Type: ED Notes Filed: 02/22/2020 11:49 AM Note Text: Spoke with Sound in regards to BP. Will order IV PRN medication. [facility] ED NOTE HNO ID: [id number] Author: Vane Reeder RN Service: Emergency Medicine Author Type: Registered Nurse Type: ED Notes Filed: 02/22/2020 11:35 AM Note Text: FSBS 79 [facility] ED NOTE HNO ID: [id number] Author: Yaritza HolmanRnBritt Chavez RN Service: Nursing Author Type: Registered Nurse Type: ED Notes Filed: 02/22/2020 6:33 AM Note Text: Nurse called MRI AND told that patient is a candidate for MRI, states that they are unsure of when they will send for patient. [facility] ED NOTE HNO ID: [id number] Author: Yaritza HolmanRnBritt Chavez RN Service: Nursing Author Type: Registered Nurse Type: ED Notes Filed: 02/22/2020 5:58 AM Note Text: Natasharuba Gimenez called to obtain MRI screening form. Dr. Eagle giving pt's update over the phone at this time. MRI screening form faxed over. [facility] ED NOTE HNO ID: [id number] Author: Tawana (Rn) KRZYSZTOF Guzman Service: Emergency Medicine Author Type: Registered Nurse Type: ED Notes Filed: 02/22/2020 3:51 AM Note Text: Pt COVID-19 swab obtained from pt's R sharmaine. Swab specimen labeled @ BS and sent to lab. [facility] ED NOTE HNO ID: [id number] Author: Tawana (Rn) KRZYSZTOF Guzman Service: Emergency Medicine Author Type: Registered Nurse Type: ED Notes Filed: 02/22/2020 3:03 AM Note Text: This RN to assume temporary care of pt @ this time to cover lunch of primary RN. Report received from KRZYSZTOF Vigil [facility] ED NOTE HNO ID: [id number] Author: Tawana (Rn) KRZYSZTOF Guzman Service: Emergency Medicine Author Type: Registered Nurse Type: ED Notes Filed: 02/22/2020 1:36 AM Note Text: Yellow trauma II sheet signed by this RN and Dr. Blas and placed in pt's chart [facility] ED NOTE HNO ID: [id number] Author: Tawana (Rn) KRZYSZTOF Guzman Service: Emergency Medicine Author Type: Registered Nurse Type: ED Notes Filed: 02/22/2020 1:35 AM Note Text: Pt moved to room 9 - Pt remains on cardiac/SpO2 monitoring. [facility] ED NOTE HNO ID: [id number] Author: Tawana (Rn) KRZYSZTOF Guzman Service: Emergency Medicine Author Type: Registered Nurse Type: ED Notes Filed: 02/22/2020 1:19 AM Note Text: Pt began answering question and responding verbally to Dr. Shaikh [facility] ED NOTE HNO ID: [id number] Author: Rajan Cruz Service: ? Author Type: ? Type: ED Notes Filed: 02/22/2020 1:07 AM Note Text: Bed: [address] [place] [address] Expected date: 02/22/20 Expected time: 1:00 AM Means of arrival: [facility] Comments: Dom trauma consult [facility] ED NOTE HNO ID: [id number] Author: Tawana (Rn) KRZYSZTOF Guzman Service: Emergency Medicine Author Type: Registered Nurse Type: ED Notes Filed: 02/22/2020 1:19 AM Note Text: Pt arrives tremoring and unresponsive, tremoring with his shoulders and arm while his tongue was sticking out [facility] ED PROV NOTEon 02-22-2020 ED PROV NOTE HNO ID: [id number] Author: Jacque Eagle MD Service: Emergency Medicine Author Type: Physician Type: ED Provider Notes Filed: 02/22/2020 4:50 AM Note Text: ED Provider Note Patient Name: Megan Gimenez SERVICE DATE: 02/22/20 History No chief complaint on file. Megan Gimenez is a 74 y/o male with known past medical history of mild dementia who is presenting as a transfer from [facility] where he initially presented after a fall with head injury. Per report patient tripped over his dog causing him to fall backwards hitting his head. Unclear loss of consciousness. During his stay [facility] he did receive a CT brain and cervical spine both which were unremarkable. He is currently on Eliquis however no bleeds were seen. His mental status does appear to be slightly depressed however he is having what appears to be focal seizures in his upper extremities. He was transferred to [facility] for a trauma consultation. In route to [...] PROTHROMBIN TIME / PT (AK,AV,EU,FV,HL,JEANNETTE,MM,SP) ACTIVATED PTT (AK,AV,EU,FV,HL,JENANETTE,MM,SP) HIGH SENSITIVITY TROPONIN T (AK AV,EU,FV,HL,JEANNETTE,MM,SP) URINE [...] is a 74-year-old male patient transferred from [facility] after a fall. Patient reportedly tripped over [...] emergency department as a trauma transfer from [facility] where he initially presented after a fall [...] I did speak with Dr. Loredo, neuro instrument lens inspector, who feels that this is appropriate. Patient [...] or prevent deterioration of the following condition(s): HYDRAULIC BLOCKER impairment, which the patient had and/or has a high probability of suddenly developing. The patient received ativan, imaging, IV Fluids and Consultation by trauma during the time that critical care was provided.I discussed the plan of care with the Resident and agree with the findings documented. Critical care time excludes separately billed procedures. MD Jacque Quiñonez MD 02/22/20 0450 [facility] HISTORY PHYSICALon 0 HISTORY PHYSICAL HNO ID: [id number] Author: Melina Hallman Service: Hospital Medicine Author Type: Nurse Practitioner Type: HANDP Filed: 02/22/2020 8:48 AM Note Text: -- Attestation signed by Laureano Linton at 02/22/2020 10:41 AM Attending Note I have personally performed a face to face assessment of the patient and have reviewed the PA/CMM TECHNICIAN note. My mahmood findings include: History is as noted on nurse practitioner history. Patient had been doing well until yesterday when he tripped over his dog and hit his head. He said generalized tremors affecting his upper body primarily his upper extremities. He was sent to [facility] as a trauma and a CT of the brain and cervical spine showed a small left frontal contusion. X-rays of the pelvis were negative. He was transferred to [facility] for more comprehensive evaluation. Exam [...] NIGHT AND WEEKEND COVERAGE: After 7pm call #[phone] Chief complaint: tremor HPI: This is a 74 y/o male with prior history of atrial fibrillation on eliquis, HTN, diabetes, HLD, rheumatoid arthritis and colitis. Patient lives at home with and is AANDOX3 and independent at baseline. He initially presented to [facility] after tripping on his dog and [...] with: Provider and Patient SIGNATURE: Melina Hallman APRN.EMMANUEL PATIENT NAME: Megan Gimenez DATE: February 22, 2020 TIME: 8:32 AM PAGER/CONTACT #: [phone] [facility] HISTORY PHYSICAL HNO ID: [id number] Author: Raphael [facility] Service: General Surgery Author Type: Physician Type: HANDP Filed: 02/22/2020 10:11 AM Note Text: TRAUMA HANDP [facility] ARRIVAL DATE: 02/22/2020 ARRIVAL TIME:~ 1:15 AM CATEGORY: Level 2 INJURY DATE: 01/30/2020 INJURY TIME: YARN WEIGHER Subjective This is a 74 year old White male who presents for a trauma 2 activation, status post reported ground level fall after his dog got underneath his legs and he tripped. Reportedly after this fall the patient started exhibiting generalized tremors in both extremities and he was taken to the emergency department in [place]. There is concern that he was having a seizure and he was given a milligram of Ativan at [facility] ED. He continued to exhibit this tremulous activity in bilateral upper extremities and altered mental status so he was given additional Versed in route to our facility here at [facility]. On arrival he was exhibiting these [...] diabetes, rheumatoid arthritis colitis, hyperlipidemia , per [facility] medical records. GCS on arrival 13. HPI/CHIEF [...] Result IMPRESSION: No acute fracture or dislocation. Mosaic Layer: HARDIK Transcribe Date/Time: Feb 22 2020 1:43A [...] 1. CT H and XR P at [facility] (02/21) 2. CT H/N, CXR and CTA head neck at [place] 1. CT cervical spine with no evidence [...] questions or concerns Mon-Sat 6a-5p please page [phone]. After 5pm and on Weekends and Holidays, please page [phone] if in ICU or [phone] if on RNF. Attending Note I personally saw and examined the patient. I reviewed the resident's note. I agree with the resident's assessment and plan unless otherwise noted. As above Possible seizures No traumatic injuries OK to admit to medicine Signature: Raphael Lima MD Date: 02/22/2020 Time: 10:11 AM [facility] Hemogram/Diffon 02-22-2020 Abs Immature Grans 0.03 thou/cmm Normal 0.00-0.05 [facility] Comment on above: Performed By: #### G LMET #### [place] [address] Abs Neut (ANC) 4.09 thou/cmm Normal 1.78-5.38 [facility] Comment on above: Performed By: #### G LMET #### [place] [address] Abs. Baso 0.02 thou/cmm Normal 0.01-0.08 [facility] Comment on above: Performed By: #### G LMET #### [place] [address] Abs. [place] 0.66 thou/cmm Normal 0.30-0.82 [facility] Comment on above: Performed By: #### G LMET #### [facility] [address] [place], [place] [address] Basophils/100 WBC (Bld) 0.3 % Normal [facility] Comment on above: Performed By: #### G LMET #### [facility] [address] [place], [place] [address] Eosinophils (Bld) [#/Vol] 0.20 thou/cmm Normal 0.04-0.54 [facility] Comment on above: Performed By: #### G LMET #### [facility] [address] [place], [place] [address] Eosinophils/100 WBC (Bld) 3.1 % Normal [facility] Comment on above: Performed By: #### G LMET #### [place] [address] Erythrocyte distribution width (RBC) [Ratio] 16.5 % High 11.6-14.4 [facility] Comment on above: Performed By: #### G LMET #### [facility] [address] [place], [place] [address] Hematocrit (Bld) [Volume fraction] 33.0 % Low 40.1-51.0 [facility] Comment on above: Performed By: #### G LMET #### [address] [address] Hemoglobin (Bld) [Mass/Vol] 10.6 g/dL Low 13.7-17.5 [facility] Comment on above: Performed By: #### G LMET #### [facility] [address] [place], [place] [address] Immature Grans 0.50 % Normal [facility] Comment on above: Performed By: #### G LMET #### [facility] [address] [place], [place] [address] Lymphocytes (Bld) [#/Vol] 1.53 thou/cmm Normal 0.84-2.85 [facility] Comment on above: Performed By: #### G LMET #### [facility] [address] [place], [place] [address] Lymphocytes/100 WBC (Bld) 23.4 % Normal [facility] Comment on above: Performed By: #### G LMET #### [facility] [address] [place], [place] [address] MCH (RBC) [Entitic mass] 28.7 pg Normal 25.7-32.2 [facility] Comment on above: Performed By: #### G LMET #### [facility] [address] [place], [place] [address] MCHC (RBC) [Mass/Vol] 32.1 % Low 32.3-36.5 [facility] Comment on above: Performed By: #### G LMET #### [facility] [address] [place], [place] [address] MCV (RBC) [Entitic vol] 89.4 fL Normal 83.2-95.6 [facility] Comment on above: Performed By: #### G LMET #### [facility] [address] [place], [place] [address] Monocytes/100 WBC (Bld) 10.1 % Normal [facility] Comment on above: Performed By: #### G LMET #### [facility] [address] [place] [address] Platelet mean volume (Bld) [Entitic vol] 10.8 fL Normal 8.7-12.0 [facility] Comment on above: Performed By: #### G LMET #### [facility] [address] [place], [place] [address] Platelets (Bld) [#/Vol] 212 thou/cmm Normal 141-365 [facility] Comment on above: Performed By: #### G LMET #### [facility] [address] [place], [place] [address] RBC (Bld) [#/Vol] 3.69 mil/cmm Low 4.63-6.08 [facility] Comment on above: Performed By: #### G LMET #### [facility] [address] [place], [place] [address] RDW SD 54.3 fl High 36.1-45.8 [facility] Comment on above: Performed By: #### G LMET #### [facility] [address] [place] [address] Seg Neutrophil 62.6 % Normal [facility] Comment on above: Performed By: #### G LMET #### [facility] [address] [place] [address] WBC (Bld) [#/Vol] 6.54 thou/cmm Normal 4.23-9.07 [facility] Comment on above: Performed By: #### G LMET #### [facility] [address] [place] [address] Hgb A1con 02-22-2020 HbA1c (Bld) [Mass fraction] 128 mg/dL Normal [facility] Comment on above: Performed By: #### H A1C ####[facility] [place] [address] HbA1c (Bld) [Mass fraction] 6.1 % High 4.0-5.6 [facility] Comment on above: Result Comment: [place] Diabetes Association guidelines indicate that the patients with HgA1c in the range 5.7 ? 6.4% are at increased risk for development of diabetes, and intervention by lifestyle modification may be beneficial. HgA1c greater or equal to 6.5% is considered diagnostic of diabetes. Performed By: #### H A1C ####[facility] [place] [address] Lactic Acidon 02-22-2020 Lactate [Moles/Vol] 1.1 mmol/L Normal 0.5-2.2 [facility] Comment on above: Performed By: #### E DLAG #### [facility] [address] [place] [address] Lipase Bloodon 02-22-2020 Lipase Blood 22 U/L Normal 16-61 [facility] Comment on above: Performed By: #### L IP #### [facility] [address] [place] [address] MRI BRAIN WO IVCONon 020 MRI BRAIN WO IVCON * * *Final Report* * * DATE OF EXAM: Feb 22 2020 3:13PM [facility] 0294 - MRI BRAIN WO IVCON / PROCEDURE REASON: Seizure, new, nontraumatic, >40 yrs * * * * Physician Interpretation * * * * EXAMINATION: MRI BRAIN WO ROBERTAPIPE CLINICAL HISTORY: Trauma, anticoagulated TECHNIQUE: Routine noncontrast [...] or extraconal mass. Correlate with clinical symptoms Mosaic Layer: HARDIK Transcribe Date/Time: Feb 22 2020 3:41P Dictated by : FELICITAS MAY MD This examination was interpreted and the report reviewed and electronically signed by: FELICITAS MAY MD on Feb 22 2020 3:58PM EST Normal [facility] Magnesium Bloodon 02-22-2020 Magnesium [Mass/Vol] 1.7 mg/dL Normal 1.7-2.3 [facility] Comment on above: Performed By: #### G LMET #### [place] [address] NURSING PROGon 02-22-2020 NURSING PROG HNO ID: [id number] Author: Avani (Rn) KRZYSZTOF Xie Service: ? Author Type: Registered Nurse Type: Nursing Progress Note Filed: 02/22/2020 5:10 PM Note Text: Nursing Progress Note [employer] Executive Assessment Note Patient Name: Megan Gimenez Patient Location: [place] [address] [address]* Patient Vitals for the past 4 hrs: [...] completed by: Avani Xie RN [facility] PLAN OF CAREon 02-22-2020 PLAN OF CARE HNO ID: [id number] Author: Morena Szymanski (Pharmacist) Service: Pharmacy Author Type: Pharmacist Type: Plan of Care Filed: 02/23/2020 4:55 PM Note Text: MEDICATION RECONCILIATION Patient Name:Minerva Gimenez : 1945 Reconciliation: Yes All YARN WEIGHER medications addressed by LIP - lisinopril/HCTZ held [...] and pharmacy: Medication name and Pharmacy records: [facility] [phone] (primary) Medication Nonadherence Identified: No barriers noted The above information represents the best possible medication history: Yes Odrap-sp-Njsusfhpw Medication List Adjustments: Medication Regimen Changes: ISOSORBIDE ORAL Take 60 mg by mouth once daily. Pt. states dose has increased. Last RX on 02/11/20 is 60 mg daily. Medications Added: Ipratropium Liberty (ATROVENT) 0.03 % nasal spray Use 1 Malcom in the nose as directed. Pt. states [...] Allergies: ALLERGIES No Known Allergies Preferred Pharmacy: [facility] [phone] (primary) Current YARN WEIGHER Medications: Prior to Admission medications as of [...] by mouth DAILY (6 AM). Yes Ipratropium Liberty (ATROVENT) 0.03 % nasal spray Use 1 Malcom in the nose as directed. Yes glimepiride (AMARYL) 2 mg tablet Take 2 mg by mouth once daily. Yes Sam Rankin (Retail Representative) pager [phone] phone [phone] February 22, 2020 10:01 AM [facility] PROGRESSon 02-22-2020 PROGRESS HNO ID: [id number] Author: Avani HolmanRn) KRZYSZTOF Xei Service: ? Author Type: Registered Nurse Type: Progress Notes Filed: 02/22/2020 4:28 PM Note Text: 1530: pt arrived to floor seizing, pts designated room not clean, sent to empty clean private room, paged valente kelly and dairy processing supervisor, notified Dr. Linton [facility] PROGRESS HNO ID: [id number] Author: Avani Ortega) KRZYSZTOF Xie Service: ? Author Type: Registered Nurse Type: Progress Notes Filed: 02/22/2020 6:14 PM Note Text: 1547: ok to d/c gabapentin at this time per dr linton on floor, Dr. Linton notified of pts blood pressure ok to monitor for now 1644: confirmed admission assment with natasha 1814: notified Dr. Linton of aspirin allergy, ok to still give UC meds [facility] Protimeon 02-22-2020 INR Coag (PPP) [Relative time] 0.99 {INR} Normal 0.90-1.30 [facility] Comment on above: Result Comment: Marly min K Antagonist (VKA) Therapeutic Range: INR 2 to 3 (Target INR of 2.5) Note: For patients treated with VKA drugs, such as warfarin, the [place] [employer] 2012 Guideline recommends [...] Chest 2012; 141:7S-47S Deshawn RA, et al. [facility] 2017; 70: 252-289 Performed By: #### G LMET #### [facility] [address] [place], [place] [address] PT Coag (PPP) [Time] 10.7 s Normal 9.7-13.0 [facility] Comment on above: Performed By: #### G LMET #### [facility] [address] [place], [place] [address] INR Coag (PPP) [Relative time] 0.98 {INR} Normal 0.90-1.30 [facility] Comment on above: Result Comment: Marly min K Antagonist (VKA) Therapeutic Range: INR 2 to 3 (Target INR of 2.5) Note: For patients treated with VKA drugs, such as warfarin, the [place] [employer] 2012 Guideline recommends [...] GH, et al. Chest 2012; 141:7S-47S Deshawn MELCHOR, et al. [facility] 2017; 70: 252-289 Performed By: #### P T #### [facility] [address] [place], [place] [address] PT Coag (PPP) [Time] 10.6 s Normal 9.7-13.0 [facility] Comment on above: Performed By: #### P T #### [facility] [address] [place], [place] [address] Rapid, COVID 19on 02-22-2020 Rapid, COVID 19 Negative Normal Negative [facility] Comment on above: Result Comment: This test has been authorized by the FDA under an Emergency Use Authorization (EUA). Performed By: #### G LMET #### [facility] [address] [place], [place] [address] TSHon 02-22-2020 TSH Qn 1.560 uIU/mL Normal 0.270-4.20 0 [facility] Comment on above: Result Comment: [...] result. Performed By: #### G LMET #### [place] [id number] Troponin T, High Sens.on Troponin T, High Sens. 36 ng/L High 0-11 [facility] Comment on above: Result Comment: Yovana ents [...] Performed By: #### G LMET #### [address] [address] Troponin T, High Sens. 41 ng/L High 0-11 [facility] Comment on above: Result Comment: Yovana ents [...] result. Performed By: #### G LMET #### [place] [address] Troponin T, High Sens. 43 ng/L High 0-11 [facility] Comment on above: Result Comment: Yovana ents [...] result. Performed By: #### T ROPT #### [place] [address] Type and Screenon 02-22-2020 ABO group Nom (Bld) AB Normal [facility] Comment on above: Performed By: #### T &S #### [place] [address] Comment Emergency Room Normal [facility] Comment on above: Performed By: #### T &S #### [place] [address] RH Type Positive Normal [facility] Comment on above: Performed By: #### T &S #### [place] [address] Urine Drug Screenon 02-22-20 20 Urine Alcohol <11 Normal 0-11 [facility] Comment on above: Performed By: #### U DRG3 #### [place] [address] Urine Amphetamine Negative Normal NEGATIVE [facility] Comment on above: Performed By: #### U DRG3 #### [place] [address] Urine Barbiturates Negative Normal NEGATIVE [facility] Comment on above: Performed By: #### U DRG3 #### [place] [address] Urine Benzodiazepine Negative Normal NEGATIVE [facility] Comment on above: Performed By: #### U DRG3 #### [facility] [address] [place], [place] [address] Urine Cocaine Metab Negative Normal NEGATIVE [facility] Comment on above: Performed By: #### U DRG3 #### [facility] [address] [place], [place] [address] Urine Opiates Negative Normal NEGATIVE [facility] Comment on above: Performed By: #### U DRG3 #### [facility] [address] [place], [place] [address] Urine Oxycodone Negative Normal NEGATIVE [facility] Comment on above: Performed By: #### U DRG3 #### [facility] [address] [place], [place] [address] Urine PCP Negative Normal NEGATIVE [facility] Comment on above: Result Comment: [...] the same specimen through the laboratory at ([phone]) if contacted within 48 hours of initial 1. Substance Abuse and Mental Health Services Administration (2012). Clinical Drug Testing in Primary Care Technical Assistance Publication Series 32. Department of Health and Human Services, [place], p.10. Performed By: #### U DRG3 #### [facility] [address] [place], [place] [address] Urine THC Negative Normal NEGATIVE [facility] Comment on above: Performed By: #### U DRG3 #### [facility] [address] [place], [place] [address] XR PELVIS 1V APon 02-22-2020 XR PELVIS [...] hardware. IMPRESSION: No acute fracture or dislocation. Mosaic Layer: PSCB Transcribe Date/Time: Feb 22 2020 1:43A Dictated by : SUZIE MARTINEZ MD This examination was interpreted and the report reviewed and electronically signed by: SUZIE MARTINEZ MD on Feb 22 2020 1:51AM EST Normal [facility] Chart Maintenanceon 04-12-20 17 HbA1c 6.4 % Invalid Interpretation Code [facility] Work Phone: Office Visit: [facility] 03-22-20 17 Dietary management education, guidance, and counseling (procedure) yes Invalid Interpretation Code [facility] Work Phone: Documentation of current medications (procedure) Done Invalid Interpretation Code [facility] Work Phone: Fall risk assessment No Invalid Interpretation Code [facility] Work Phone: [phone] Protein mass conc Done [facility] Work Phone: [phone] Lab Report: Basic Metabolic Profile (BMP)on 02-07-2017 Anion gap 9 mmol/L Invalid Interpretation Code 5-15 [facility] Work Phone: [phone] Anion gap molar conc 9 mmol/L 5-[address] [facility] Work Phone: [phone] BUN/Creatinine Ratio 19.4 RATIO Invalid Interpretation Code 10-20 [facility] Work Phone: [phone] Calcium 8.8 mg/dL Invalid Interpretation Code 8.5-10.1 [facility] Work Phone: [phone] Chloride 104 mmol/L Invalid Interpretation Code 98-107 [facility] Work Phone: [phone] CO2 30.0 mmol/L Invalid Interpretation Code 21.0-32.0 [facility] Work Phone: [phone] CO2 ppres (BldV) 30.0 mmol/L 21.0-32.0 [facility] [employer] Work Phone: [phone] Creatinine 1.44 mg/dL High 0.70-1.30 [facility] Work Phone: [phone] eGFR (non-black) 51 mL/min/{1.73_m2} Low >60 [facility] Work Phone: [phone] eGFR (non-black) 62 mL/min/{1.73_m2} Invalid Interpretation Code >60 [facility] Work Phone: [phone] EST GFR - AA 62 mL/min >60 [employer] Work Phone: [phone] Glucose 130 mg/dL High 70-110 [facility] Work Phone: [phone] Glucose mass conc 130 mg/dL High 70-110 [employer] Work Phone: [phone] Potassium 3.6 mmol/L Invalid Interpretation Code 3.5-5.1 [employer] Work Phone: [phone] Sodium 143 mmol/L Invalid Interpretation Code 136-145 [facility] Work Phone: [phone] Urea nitrogen 28 mg/dL High 7-18 [facility] Work Phone: [phone] Lab Report: CBC-Complete Blo od Cnt No Diffon 02-07-2017 Erythrocyte distribution width Ratio (RBC) 50.1 fL High 35.1-43.9 [facility] Work Phone: [phone] Erythrocyte distribution width Ratio (RBC) 14.8 % High 11.6-14.6 [facility] [facility] Work Phone: [phone] Erythrocytes (RBC) 4.61 10*6/uL Invalid Interpretation Code 4.6-6.2 [facility] Work Phone: [phone] Hematocrit (HCT) 42.7 % Invalid Interpretation Code 40-54 [facility] Work Phone: [phone] Hematocrit Volume Fraction (Bld) 42.7 % 40-54 [facility] Work Phone: [phone] Hemoglobin (HGB) 14.1 g/dL Invalid Interpretation Code 13.0-16.5 [facility] Work Phone: [phone] MCH 30.6 pg Invalid Interpretation Code 27.0-32.0 [facility] Work Phone: [phone] MCH Entitic mass (RBC) 30.6 pg 27.0-32.0 [facility] Work Phone: [phone] MCHC 33.0 G/GL Invalid Interpretation Code 32-36 [facility] Work Phone: [phone] MCHC mass conc (RBC) 33.0 G/GL 32-[address] [facility] Work Phone: [phone] MCV 92.6 fL Invalid Interpretation Code 80-94 [facility] Work Phone: [phone] MCV Entitic volume (RBC) 92.6 fL 80-94 [facility] Work Phone: [phone] Platelet mean volume Entitic volume (Bld) 10.9 fL 6.2-12.0 [facility] Work Phone: [phone] Platelets 204 10*3/mm3 Invalid Interpretation Code 150-450 [facility] Work Phone: [phone] Platelets #/vol (Bld) 204 10*3/mm3 150-450 [facility] Work Phone: [phone] PMV by Rosy 10.9 fL Invalid Interpretation Code 6.2-12.0 [facility] Work [phone] RBC #/vol (Bld) 4.61 10*6/uL 4.6-6.2 [facility] Work Phone: [phone] RDW-CA 14.8 % High 11.6-14.6 [facility] Work Phone: [phone] red blood cell distribution width, size density 50.1 fL High 35.1-43.9 [facility] Work Phone: [phone] WBC #/vol (Bld) 6.4 10*3/uL 4.4-11.0 [facility] Work [phone] WBC (Leukocytes) 6.4 10*3/uL Invalid Interpretation Code 4.4-11.0 [facility] Work Phone: Office Visiton 12-13-2016 Dietary management education, guidance, and counseling (procedure) yes Invalid Interpretation Code [employer] Work Phone: [phone] Documentation of current medications (procedure) Done Invalid Interpretation Code [facility] Work Phone: [phone] Protein mass conc Done [employer] Work Phone: [phone] Replaced Document: Oscar Castillo CG Observationson 12-13-2016 EKG QRS axis -27 deg [employer] 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 ABNORMAL [employer] Work Phone: P Johnston -1 deg [employer] Work Phone: [phone] P wave axis, electrocardiogram -1 deg Invalid Interpretation Code [employer] Work Phone: WA Interval 166 ms [employer] Work Phone: [phone] WA interval, electrocardiogram 166 ms Invalid Interpretation Code [employer] Work Phone: [phone] Pulse (Heart Rate) 71 /min Invalid Interpretation Code [employer] Work Phone: QRS axis, electrocardiogram -27 deg Invalid Interpretation Code [employer] Phone: [phone] QRS Duration 92 ms [employer] Work Phone: [phone] QRS duration, electrocardiogram 92 ms Invalid Interpretation Code [employer] Work Phone: QT Interval new path ms [employer] Work Phone: QT interval, electrocardiogram new path ms Invalid Interpretation Code [employer] Work Phone: QTc Lino 411 ms [employer] Work Phone: [phone] T Johnston -1 deg [facility] Work Phone: [phone] T wave axis, electrocardiogram -1 deg Invalid Interpretation Code [facility] Work Phone: [phone] Clinical Lists Update: [employer] 12-12-2016 Left ventricular Ejection fraction 70 % Invalid Interpretation Code [facility] Work Phone: [phone] Tobacco smoking status NHIS Former smoker [facility] Work Phone: [phone] Tobacco use CPHS Former smoker Invalid Interpretation Code [facility] Work Phone: [phone] Gram stain for investigation of transfusion reaction Microscopic observation Gram stain Nom (Unsp spec) [facility] Work Phone: Vital Signs Date Time Vital Sign Value Performing Clinician Faci lity 05-20-2025 08:12-0400 Body height 165.[address] Jayme Yang MD Work Phone: [facility] 05-20-2025 08:12-0400 Body mass index (BMI) [Ratio] 30.1 kg/m2 Dr. Jayme Yang MD Work Phone: [facility] 05-20-2025 08:12-0400 Body temperature 97.5 [degF] Dr. Jayme Yang MD Work Phone: [facility] 05-20-2025 08:12-0400 Body weight 82.[address] Jayme Yang MD Work Phone: [facility] 05-20-2025 08:12-0400 Diastolic blood pressure 85 mm[Hg] Dr. Jayme Yang MD Work Phone: [facility] 05-20-2025 08:12-0400 Heart rate 72 /min Dr. Jayme Yang MD Work Phone: [facility] 05-20-2025 08:12-0400 Respiratory rate 16 /min Dr. Jayme Yang MD Work Phone: [facility] 05-20-2025 08:12-0400 SaO2% (BldA) [Mass fraction] 95 % Dr. Jayme Yang MD Work Phone: [facility] 05-20-2025 08:12-0400 Systolic blood pressure 162 mm[Hg] Dr. Jayme Yang MD Work Phone: [facility] 04-06-2025 09:04-0400 Body height 165.[address] Jayme Yang MD Work Phone: [facility] 04-06-2025 09:04-0400 Body mass index (BMI) [Ratio] 29.3 kg/m2 Dr. Jayme Yang MD Work Phone: 8(374)897-813143 [address] 04-06-2025 09:04-0400 Body temperature 98.4 [degF] Dr. Jayme Yang MD Work Phone: 2(263)809-247012 [place] [address] 04-06-2025 09:04-0400 Body weight 79.[address] Jayme Yang MD Work Phone: 5(601)988-260502 [place] [address] 04-06-2025 09:04-0400 Diastolic blood pressure 72 mm[Hg] Dr. Jayme Yang MD Work Phone: [facility] 04-06-2025 09:04-0400 Heart rate 69 /min Dr. Jayme Yang MD Work Phone: 2(267)827-476843 [address] 04-06-2025 09:04-0400 Respiratory rate 16 /min Dr. Jayme Yang MD Work Phone: 5(366)679-197502 [place] [address] 04-06-2025 09:04-0400 SaO2% (BldA) [Mass fraction] 95 % Dr. Jayme Yang MD Work Phone: [facility] 04-06-2025 09:04-0400 Systolic blood pressure 159 mm[Hg] Dr. Jayme Yang MD Work Phone: [facility] 02-15-2025 18:52-0400 Body temperature 98.2 [degF] Dr. Jayme Yang MD Work Phone: 3(395)299-057202 [place] [address] 02-15-2025 18:52-0400 Diastolic blood pressure 74 mm[Hg] Dr. Jayme Yang MD Work Phone: [facility] 02-15-2025 18:52-0400 Heart rate 86 /min Dr. Jayme Yang MD Work Phone: [facility] 02-15-2025 18:52-0400 Respiratory rate 20 /min Dr. Jayme Yang MD Work Phone: 1(390)977-199012 [place] [address] 02-15-2025 18:52-0400 SaO2% (BldA) [Mass fraction] 93 % Dr. Jayme Yang MD Work Phone: 8(084)465-200202 [place] [address] 02-15-2025 18:52-0400 Systolic blood pressure 138 mm[Hg] Dr. Jayme Yang MD Work Phone: 3(549)126-809312 [place] [address] 02-15-2025 16:31-0400 Body height 165.[address] Jayme Yang MD Work Phone: 2(547)063-724712 [place] [address] 02-15-2025 16:31-0400 Body mass index (BMI) [Ratio] 29.3 kg/m2 Dr. Jayme Yang MD Work Phone: 5(083)191-376443 [address] 02-15-2025 16:31-0400 Body weight 80.[address] Jayme Yang MD Work Phone: 7(791)789-675112 [place] [address] 11-27-2024 08:24-0500 Body height 170.[address] Jayme Yang MD Work Phone: 6(532)146-570312 [place] [address] 11-27-2024 08:24-0500 Body mass index (BMI) [Ratio] 28.5 kg/m2 Dr. Jayme Yang MD Work Phone: 1(205)866-604802 [place] [address] 11-27-2024 08:24-0500 Body weight 82.[address] Jayme Yang MD Work Phone: 6(990)055-230743 [address] 11-27-2024 08:24-0500 Diastolic blood pressure 78 mm[Hg] Dr. Jayme Yang MD Work Phone: 7(331)099-147943 [address] 11-27-2024 08:24-0500 Heart rate 75 /min Dr. Jayme Yang MD Work Phone: [facility] 11-27-2024 08:24-0500 Respiratory rate 16 /min Dr. Jayme Yang MD Work Phone: [facility] 11-27-2024 08:24-0500 Systolic blood pressure 144 mm[Hg] Dr. Jayme Yang MD Work Phone: [facility] 11-17-2024 09:00-0500 Body mass index (BMI) [Ratio] 27.7 kg/m2 Dr. Jayme Yang MD Work Phone: 2(353)367-284202 [place] [address] 11-17-2024 09:00-0500 Body temperature 96.9 [degF] Dr. Jayme Yang MD Work Phone: 3(815)503-220912 [place] [address] 11-17-2024 09:00-0500 Body weight 80.[address] Jayme Yang MD Work Phone: 8(591)048-209543 [address] 11-17-2024 09:00-0500 Diastolic blood pressure 78 mm[Hg] Dr. Jayme Yang MD Work Phone: 4(292)902-184343 [address] 11-17-2024 09:00-0500 Heart rate 64 /min Dr. Jayme Yang MD Work Phone: 7(792)444-758602 [place] [address] 11-17-2024 09:00-0500 Respiratory rate 20 /min Dr. Jayme Yang MD Work Phone: 8(144)338-579843 [address] 11-17-2024 09:00-0500 SaO2% (BldA) [Mass fraction] 94 % Dr. Jayme Yang MD Work Phone: [facility] 11-17-2024 09:00-0500 Systolic blood pressure 178 mm[Hg] Dr. Jayme Yang MD Work Phone: 7(641)716-471912 [place] [address] 10-06-2024 09:32-0500 Body mass index (BMI) [Ratio] 28.5 kg/m2 Dr. Jayme Yang MD Work Phone: 5(538)571-694443 [address] 10-06-2024 09:32-0500 Body temperature 97.7 [degF] Dr. Jayme Yang MD Work Phone: [facility] 10-06-2024 09:32-0500 Body weight 82.[address] Jayme Yang MD Work Phone: [facility] 10-06-2024 09:32-0500 Diastolic blood pressure 78 mm[Hg] Dr. Jayme Yang MD Work Phone: [facility] 10-06-2024 09:32-0500 Heart rate 68 /min Dr. Jayme Yang MD Work Phone: [facility] 10-06-2024 09:32-0500 Respiratory rate 16 /min Dr. Jayme Yang MD Work Phone: [facility] 10-06-2024 09:32-0500 SaO2% (BldA) [Mass fraction] 95 % Dr. Jayme Yang MD Work Phone: [facility] 10-06-2024 09:32-0500 Systolic blood pressure 168 mm[Hg] Dr. Jayme Yang MD Work Phone: [facility] 12-11-2023 09:24-0400 Body height 170.[address] Jayme Yang Work Phone: [facility] 12-11-2023 09:24-0400 Body mass index (BMI) [Ratio] 34 kg/m2 Dr. Jayme Yang Work Phone: [facility] 12-11-2023 09:24-0400 Body weight 98.[address] Jayme Yang Work Phone: [facility] 12-11-2023 09:24-0400 Diastolic blood pressure 79 mm[Hg] Dr. Jayme Yang Work Phone: [facility] 12-11-2023 09:24-0400 Heart rate 80 /min Dr. Jayme Yang Work Phone: [facility] 12-11-2023 09:24-0400 Respiratory rate 18 /min Dr. Jayme Yang Work Phone: [facility] 12-11-2023 09:24-0400 Systolic blood pressure 146 mm[Hg] Dr. Jayme Yang Work Phone: [facility] 11-21-2023 07:44-0500 Body mass index (BMI) [Ratio] 34.2 kg/m2 Dr. Jayme Yang Work Phone: [facility] 11-21-2023 07:44-0500 Body temperature 97.1 [degF] Dr. Jayme Yang Work Phone: [facility] 11-21-2023 07:44-0500 Body weight 99.[address] Jayme Yang Work Phone: [facility] 11-21-2023 07:44-0500 Diastolic blood pressure 89 mm[Hg] Dr. Jayme Yang Work Phone: [facility] 11-21-2023 07:44-0500 Heart rate 80 /min Dr. Jayme Yang Work Phone: [facility] 11-21-2023 07:44-0500 Respiratory rate 20 /min Dr. Jayme Yang Work Phone: [facility] 11-21-2023 07:44-0500 SaO2% (BldA) [Mass fraction] 95 % Dr. Jayme Yang Work Phone: [facility] 11-21-2023 07:44-0500 Systolic blood pressure 172 mm[Hg] Dr. Jayme Yang Work Phone: [facility] 11-19-2023 08:58-0500 Body mass index (BMI) [Ratio] 34.7 kg/m2 Dr. Jayme Yang Work Phone: [facility] 11-19-2023 08:58-0500 Body temperature 98.7 [degF] Dr. Jayme Yang Work Phone: [facility] 11-19-2023 08:58-0500 Body weight 100.[address] Jayme Yang Work Phone: [facility] 11-19-2023 08:58-0500 Diastolic blood pressure 74 mm[Hg] Dr. Jayme Yang Work Phone: [facility] 11-19-2023 08:58-0500 Heart rate 81 /min Dr. Jayme Yang Work Phone: [facility] 11-19-2023 08:58-0500 Respiratory rate 18 /min Dr. Jayme Yang Work Phone: [facility] 11-19-2023 08:58-0500 SaO2% (BldA) [Mass fraction] 92 % Dr. Jayme Yang Work Phone: [facility] 11-19-2023 08:58-0500 Systolic blood pressure 149 mm[Hg] Dr. Jayme Yang Work Phone: [facility] 11-13-2023 13:18-0500 Heart rate 91 /min Dr. Jayme Yang Work Phone: [facility] 11-13-2023 12:58-0500 Body temperature 98 [degF] Dr. Jayme Yang Work Phone: [facility] 11-13-2023 12:58-0500 Diastolic blood pressure 94 mm[Hg] Dr. Jayme Yang Work Phone: [facility] 11-13-2023 12:58-0500 Respiratory rate 18 /min Dr. Jayme Yang Work Phone: [facility] 11-13-2023 12:58-0500 SaO2% (BldA) [Mass fraction] 93 % Dr. Jayme Yang Work Phone: [facility] 11-13-2023 12:58-0500 Systolic blood pressure 176 mm[Hg] Dr. Jayme Yang Work Phone: [facility] 11-13-2023 08:11-0500 Inhaled oxygen flow rate 2 L/min Dr. Jayme Yang Work Phone: [facility] 11-11-2023 22:52-0500 Body height 170.[address] Jayme Yang Work Phone: [facility] 11-11-2023 22:52-0500 Body mass index (BMI) [Ratio] 34.3 kg/m2 Dr. Jayme Yang Work Phone: [facility] 11-11-2023 22:52-0500 Body weight 99.[address] Jayme Yang Work Phone: [facility] 11-11-2023 22:37-0500 Body temperature 98 [degF] Dr. Jayme Yang Work Phone: [facility] 11-11-2023 22:37-0500 Diastolic blood pressure 84 mm[Hg] Dr. Jayme Yang Work Phone: 9(941)504-515702 [place] [address] 11-11-2023 22:37-0500 Heart rate 89 /min Dr. Jayme Yang Work Phone: [facility] 11-11-2023 22:37-0500 Respiratory rate 24 /min Dr. Jayme Yang Work Phone: [facility] 11-11-2023 22:37-0500 SaO2% (BldA) [Mass fraction] 95 % Dr. Jayme Yang Work Phone: [facility] 11-11-2023 22:37-0500 Systolic blood pressure 163 mm[Hg] Dr. Jayme Yang Work Phone: [facility] 11-11-2023 19:48-0500 Inhaled oxygen flow rate 2 L/min Dr. Jayme Yang Work Phone: [facility] 11-11-2023 19:45-0500 Body height 170.[address] Jayme Yang Work Phone: [facility] 11-11-2023 19:45-0500 Body mass index (BMI) [Ratio] 35.4 kg/m2 Dr. Jayme Yang Work Phone: [facility] 11-11-2023 19:45-0500 Body weight 102.[address] Jayme Yang Work Phone: [facility] 10-16-2023 08:07-0500 Body height 170.[address] Jayme Yang Work Phone: [facility] 10-16-2023 08:07-0500 Body mass index (BMI) [Ratio] 33.2 kg/m2 Dr. Jayme Yang Work Phone: [facility] 10-16-2023 08:07-0500 Body temperature 98.2 [degF] Dr. Jayme Yang Work Phone: [facility] 10-16-2023 08:07-0500 Body weight 96.[address] Jayme Yang Work Phone: [facility] 10-16-2023 08:07-0500 Diastolic blood pressure 90 mm[Hg] Dr. Jayme Yang Work Phone: [facility] 10-16-2023 08:07-0500 Heart rate 83 /min Dr. Jayme Yang Work Phone: 3(280)404-141302 [place] [address] 10-16-2023 08:07-0500 Respiratory rate 18 /min Dr. Jayme Yang Work Phone: [facility] 10-16-2023 08:07-0500 SaO2% (BldA) [Mass fraction] 91 % Dr. Jayme Yang Work Phone: [facility] 10-16-2023 08:07-0500 Systolic blood pressure 166 mm[Hg] Dr. Jayme Yang Work Phone: [facility] 10-09-2023 08:15-0500 Body mass index (BMI) [Ratio] 34.7 kg/m2 Dr. Jayme Yang Work Phone: [facility] 10-09-2023 08:15-0500 Body temperature 97.9 [degF] Dr. Jayme Yang Work Phone: [facility] 10-09-2023 08:15-0500 Body weight 100.[address] Jayme Yang Work Phone: [facility] 10-09-2023 08:15-0500 Diastolic blood pressure 76 mm[Hg] Dr. Jayme Yang Work Phone: [facility] 10-09-2023 08:15-0500 Heart rate 69 /min Dr. Jayme Yang Work Phone: [facility] 10-09-2023 08:15-0500 Respiratory rate 16 /min Dr. Jayme Yang Work Phone: [facility] 10-09-2023 08:15-0500 SaO2% (BldA) [Mass fraction] 91 % Dr. Jayme Yang Work Phone: [facility] 10-09-2023 08:15-0500 Systolic blood pressure 155 mm[Hg] Dr. Jayme Yang Work Phone: 3(339)625-943443 [address] 10-02-2023 08:15-0500 Body mass index (BMI) [Ratio] 33.5 kg/m2 Dr. Jayme Yang Work Phone: 7(360)655-531902 [place] [address] 10-02-2023 08:15-0500 Body temperature 98.5 [degF] Dr. Jayme Yang Work Phone: 7(255)373-879702 [place] [address] 10-02-2023 08:15-0500 Body weight 97.[address] Jayme Yang Work Phone: [facility] 10-02-2023 08:15-0500 Diastolic blood pressure 86 mm[Hg] Dr. Jamye Yang Work Phone: 1(547)771-585502 [place] [address] 10-02-2023 08:15-0500 Heart rate 86 /min Dr. Jayme Yang Work Phone: [facility] 10-02-2023 08:15-0500 Respiratory rate 18 /min Dr. Jayme Yang Work Phone: [facility] 10-02-2023 08:15-0500 SaO2% (BldA) [Mass fraction] 91 % Dr. Jayme Yang Work Phone: [facility] 10-02-2023 08:15-0500 Systolic blood pressure 173 mm[Hg] Dr. Jayme Yang Work Phone: 0(276)861-665202 [place] [address] 09-25-2023 08:28-0500 Body mass index (BMI) [Ratio] 33.7 kg/m2 Dr. Jayme Yang Work Phone: [facility] 09-25-2023 08:28-0500 Body temperature 98.1 [degF] Dr. Jayme Yang Work Phone: [facility] 09-25-2023 08:28-0500 Body weight 97.[address] Jayme Yang Work Phone: [facility] 09-25-2023 08:28-0500 Diastolic blood pressure 76 mm[Hg] Dr. Jayme Yang Work Phone: [facility] 09-25-2023 08:28-0500 Heart rate 84 /min Dr. Jayme Yang Work Phone: [facility] 09-25-2023 08:28-0500 Respiratory rate 16 /min Dr. Jayme Yang Work Phone: [facility] 09-25-2023 08:28-0500 SaO2% (BldA) [Mass fraction] 92 % Dr. Jayme Yang Work Phone: [facility] 09-25-2023 08:28-0500 Systolic blood pressure 163 mm[Hg] Dr. Jayme Yang Work Phone: [facility] 09-24-2023 07:42-0500 SaO2% (BldA) [Mass fraction] 97 % Dr. Jayme Yang Work Phone: [facility] 09-24-2023 07:35-0500 Body temperature 97.8 [degF] Dr. Jayme Yang Work Phone: [facility] 09-24-2023 07:35-0500 Diastolic blood pressure 91 mm[Hg] Dr. Jayme Yang Work Phone: [facility] 09-24-2023 07:35-0500 Heart rate 87 /min Dr. Jayme Yang Work Phone: [facility] 09-24-2023 07:35-0500 Respiratory rate 18 /min Dr. Jayme Yang Work Phone: [facility] 09-24-2023 07:35-0500 Systolic blood pressure 168 mm[Hg] Dr. Jayme Yang Work Phone: [facility] 09-24-2023 04:53-0500 Inhaled oxygen flow rate 5 L/min Dr. Jayme Yang Work Phone: [facility] 09-20-2023 16:01-0500 Body height 170.[address] Jayme Yang Work Phone: [facility] 09-20-2023 16:01-0500 Body mass index (BMI) [Ratio] 34.2 kg/m2 Dr. Jayme Yang Work Phone: [facility] 09-20-2023 16:01-0500 Body weight 99.[address] Jayme Yang Work Phone: [facility] 09-20-2023 15:45-0500 Body temperature 98.1 [degF] Dr. Jayme Yang Work Phone: [facility] 09-20-2023 15:45-0500 Diastolic blood pressure 89 mm[Hg] Dr. Jayme Yang Work Phone: [facility] 09-20-2023 15:45-0500 Heart rate 91 /min Dr. Jayme Yang Work Phone: [facility] 09-20-2023 15:45-0500 Respiratory rate 16 /min Dr. Jayme Yang Work Phone: [facility] 09-20-2023 15:45-0500 Systolic blood pressure 159 mm[Hg] Dr. Jayme Yang Work Phone: [facility] 09-20-2023 14:40-0500 SaO2% (BldA) [Mass fraction] 93 % Dr. Jayme Yang Work Phone: [facility] 09-20-2023 12:37-0500 Body height 170.[address] Jayme Yang Work Phone: [facility] 09-20-2023 12:37-0500 Body mass index (BMI) [Ratio] 34 kg/m2 Dr. Jayme Yang Work Phone: [facility] 09-20-2023 12:37-0500 Body weight 98.[address] Jayme Yang Work Phone: [facility] 09-18-2023 08:31-0500 Body height 170.[address] Jayme Yang Work Phone: [facility] 09-18-2023 08:27-0500 Body mass index (BMI) [Ratio] 33.7 kg/m2 Dr. Jayme Yang Work Phone: 2(934)639-593643 [address] 09-18-2023 08:27-0500 Body temperature 97.5 [degF] Dr. Jayme Yang Work Phone: [facility] 09-18-2023 08:27-0500 Body weight 97.[address] Jayme Yang Work Phone: [facility] 09-18-2023 08:27-0500 Diastolic blood pressure 81 mm[Hg] Dr. Jayme Yang Work Phone: 3(552)676-625102 [place] [address] 09-18-2023 08:27-0500 Heart rate 86 /min Dr. Jayme Yang Work Phone: [facility] 09-18-2023 08:27-0500 Respiratory rate 18 /min Dr. Jayme Yang Work Phone: [facility] 09-18-2023 08:27-0500 SaO2% (BldA) [Mass fraction] 92 % Dr. Jayme Yang Work Phone: [facility] 09-18-2023 08:27-0500 Systolic blood pressure 160 mm[Hg] Dr. Jayme Yang Work Phone: [facility] 09-11-2023 08:27-0500 Body mass index (BMI) [Ratio] 34.3 kg/m2 Dr. Jayme Yang Work Phone: [facility] 09-11-2023 08:27-0500 Body temperature 97.3 [degF] Dr. Jayme Yang Work Phone: [facility] 09-11-2023 08:27-0500 Body weight 99.[address] Jayme Yang Work Phone: [facility] 09-11-2023 08:27-0500 Diastolic blood pressure 77 mm[Hg] Dr. Jayme Yang Work Phone: [facility] 09-11-2023 08:27-0500 Heart rate 73 /min Dr. Jayme Yang Work Phone: [facility] 09-11-2023 08:27-0500 Respiratory rate 18 /min Dr. Jayme Yang Work Phone: [facility] 09-11-2023 08:27-0500 SaO2% (BldA) [Mass fraction] 92 % Dr. Jayme Yang Work Phone: [facility] 09-11-2023 08:27-0500 Systolic blood pressure 149 mm[Hg] Dr. Jayme Yang Work Phone: [facility] 09-05-2023 10:28-0500 SaO2% (BldA) [Mass fraction] 93 % Dr. Jayme Yang Work Phone: [facility] 09-05-2023 10:00-0500 Respiratory rate 18 /min Dr. Jayme Yang Work Phone: [facility] 09-05-2023 09:57-0500 Body temperature 98.1 [degF] Dr. Jayme Yang Work Phone: [facility] 09-05-2023 09:57-0500 Diastolic blood pressure 92 mm[Hg] Dr. Jayme aYng Work Phone: [facility] 09-05-2023 09:57-0500 Heart rate 82 /min Dr. Jayme Yang Work Phone: [facility] 09-05-2023 09:57-0500 Systolic blood pressure 165 mm[Hg] Dr. Jayme Yang Work Phone: [facility] 09-05-2023 07:39-0500 Inhaled oxygen flow rate 2 L/min Dr. Jayme Yang Work Phone: [facility] 09-04-2023 14:00-0500 Body temperature 98.9 [degF] Dr. Jayme Yang Work Phone: [facility] 09-04-2023 14:00-0500 Diastolic blood pressure 97 mm[Hg] Dr. Jayme Yang Work Phone: [facility] 09-04-2023 14:00-0500 SaO2% (BldA) [Mass fraction] 95 % Dr. Jayme Yang Work Phone: [facility] 09-04-2023 14:00-0500 Systolic blood pressure 183 mm[Hg] Dr. Jayme Yang Work Phone: 5(992)429-194802 [place] [address] 09-04-2023 09:49-0500 Heart rate 68 /min Dr. aJyme Yang Work Phone: [facility] 09-04-2023 09:28-0500 Respiratory rate 19 /min Dr. Jayme Yang Work Phone: [facility] 09-04-2023 08:15-0500 Inhaled oxygen flow rate 2 L/min Dr. Jayme Yang Work Phone: [facility] 09-04-2023 06:41-0500 Body temperature 97.3 [degF] Dr. Jayme Yang Work Phone: [facility] 09-04-2023 06:41-0500 Diastolic blood pressure 99 mm[Hg] Dr. Jayme Yang Work Phone: [facility] 09-04-2023 06:41-0500 SaO2% (BldA) [Mass fraction] 97 % Dr. Jayme Yang Work Phone: [facility] 09-04-2023 06:41-0500 Systolic blood pressure 204 mm[Hg] Dr. Jayme Yang Work Phone: [facility] 09-04-2023 06:12-0500 Body height 170.[address] Jayme Yang Work Phone: [facility] 09-04-2023 06:12-0500 Body mass index (BMI) [Ratio] 33.1 kg/m2 Dr. Jayme Yang Work Phone: [facility] 09-04-2023 06:12-0500 Body weight 96.[address] Jayme Yang Work Phone: [facility] 09-04-2023 03:16-0500 Heart rate 60 /min Dr. Jayme Yang Work Phone: [facility] 09-04-2023 03:16-0500 Respiratory rate 20 /min Dr. Jayme Yang Work Phone: [facility] 09-03-2023 23:18-0500 Body height 167.[address] Jayme Yang Work Phone: [facility] 09-03-2023 23:18-0500 Body mass index (BMI) [Ratio] 35.9 kg/m2 Dr. Jayme Yang Work Phone: 0(539)617-961902 [place] [address] 09-03-2023 23:18-0500 Body weight 100.[address] Jayme Yang Work Phone: [facility] 08-13-2023 05:56-0500 Body mass index (BMI) [Ratio] 34.7 kg/m2 Dr. Jayme Yang Work Phone: [facility] 08-13-2023 05:56-0500 Body temperature 97.2 [degF] Dr. Jayme Yang Work Phone: [facility] 08-13-2023 05:56-0500 Body weight 97.[address] Jayme Yang Work Phone: [facility] 08-13-2023 05:56-0500 Diastolic blood pressure 85 mm[Hg] Dr. Jayme Yang Work Phone: [facility] 08-13-2023 05:56-0500 Heart rate 74 /min Dr. Jayme Yang Work Phone: [facility] 08-13-2023 05:56-0500 SaO2% (BldA) [Mass fraction] 95 % Dr. Jayme Yang Work Phone: [facility] 08-13-2023 05:56-0500 Systolic blood pressure 174 mm[Hg] Dr. Jayme Yang Work Phone: [facility] 08-07-2023 12:07-0500 Body temperature 97.3 [degF] Dr. Jayme Yang Work Phone: [facility] 08-07-2023 12:07-0500 Diastolic blood pressure 77 mm[Hg] Dr. Jayme Yang Work Phone: 2(540)849-014243 [address] 08-07-2023 12:07-0500 Heart rate 63 /min Dr. Jayme Yang Work Phone: 2(480)620-593243 [address] 08-07-2023 12:07-0500 Respiratory rate 16 /min Dr. Jayme Yang Work Phone: [facility] 08-07-2023 12:07-0500 SaO2% (BldA) [Mass fraction] 92 % Dr. Jayme Yang Work Phone: [facility] 08-07-2023 12:07-0500 Systolic blood pressure 147 mm[Hg] Dr. Jayme Yang Work Phone: 8(872)727-491602 [place] [address] 08-07-2023 11:45-0500 Inhaled oxygen flow rate 4 L/min Dr. Jayme Yang Work Phone: [facility] 08-07-2023 08:56-0500 Body height 167.[address] Jayme Yang Work Phone: [facility] 08-07-2023 08:56-0500 Body mass index (BMI) [Ratio] 35.2 kg/m2 Dr. Jayme Yang Work Phone: 5(367)641-889043 [address] 08-07-2023 08:56-0500 Body weight [address] Jayme Yang Work Phone: 9(381)698-276743 [address] 07-02-2023 09:01-0400 Body mass index (BMI) [Ratio] 33.9 kg/m2 Dr. Jayme Yang Work Phone: [facility] 07-02-2023 09:01-0400 Body temperature 98.2 [degF] Dr. Jayme Yang Work Phone: [facility] 07-02-2023 09:01-0400 Body weight 95.[address] Jayme Yang Work Phone: [facility] 07-02-2023 09:01-0400 Diastolic blood pressure 72 mm[Hg] Dr. Jayme Yang Work Phone: 5(916)893-718643 [address] 07-02-2023 09:01-0400 Heart rate 80 /min Dr. Jayme Yang Work Phone: 0(920)833-093643 [address] 07-02-2023 09:01-0400 Respiratory rate 18 /min Dr. Jayme Yang Work Phone: 5(911)768-915202 [place] [address] 07-02-2023 09:01-0400 SaO2% (BldA) [Mass fraction] 92 % Dr. Jayme Yang Work Phone: 3(446)586-475043 [address] 07-02-2023 09:01-0400 Systolic blood pressure 158 mm[Hg] Dr. Jayme Yang Work Phone: [facility] 05-24-2023 09:43-0400 Body height 170.[address] Jayme Yang Work Phone: [facility] 05-24-2023 09:43-0400 Body mass index (BMI) [Ratio] 34.9 kg/m2 Dr. Jayme Yang Work Phone: 2(499)330-467102 [place] [address] 05-24-2023 09:43-0400 Body weight 101.[address] Jayme Yang Work Phone: [facility] 05-24-2023 09:43-0400 Diastolic blood pressure 81 mm[Hg] Dr. Jayme Yang Work Phone: [facility] 05-24-2023 09:43-0400 Heart rate 74 /min Dr. Jayme Yang Work Phone: [facility] 05-24-2023 09:43-0400 Respiratory rate 20 /min Dr. Jayme Yang Work Phone: [facility] 05-24-2023 09:43-0400 SaO2% (BldA) [Mass fraction] 93 % Dr. Jayme Yang Work Phone: [facility] 05-24-2023 09:43-0400 Systolic blood pressure 150 mm[Hg] Dr. Jayme Yang Work Phone: [facility] 05-21-2023 05:44-0400 Body mass index (BMI) [Ratio] 34.4 kg/m2 Dr. Jayme Yang Work Phone: [facility] 05-21-2023 05:44-0400 Body temperature 96.5 [degF] Dr. Jayme Yang Work Phone: [facility] 05-21-2023 05:44-0400 Body weight 99.[address] Jayme Yang Work Phone: [facility] 05-21-2023 05:44-0400 Diastolic blood pressure 85 mm[Hg] Dr. Jayme Yang Work Phone: [facility] 05-21-2023 05:44-0400 Heart rate 74 /min Dr. Jayme Yang Work Phone: [facility] 05-21-2023 05:44-0400 Respiratory rate 20 /min Dr. Jayme Yang Work Phone: [facility] 05-21-2023 05:44-0400 SaO2% (BldA) [Mass fraction] 96 % Dr. Jayme Yang Work Phone: [facility] 05-21-2023 05:44-0400 Systolic blood pressure 159 mm[Hg] Dr. Jayme Yang Work Phone: [facility] 04-04-2023 07:48-0400 Body height 170.[address] Jayme Yang Work Phone: [facility] 04-04-2023 07:48-0400 Body mass index (BMI) [Ratio] 31.6 kg/m2 Dr. Jayme Yang Work Phone: [facility] 04-04-2023 07:48-0400 Body temperature 97.6 [degF] Dr. Jayme Yang Work Phone: [facility] 04-04-2023 07:48-0400 Body weight 91.[address] Jayme Yang Work Phone: [facility] 04-04-2023 07:48-0400 Diastolic blood pressure 88 mm[Hg] Dr. Jayme Yang Work Phone: [facility] 04-04-2023 07:48-0400 Heart rate 82 /min Dr. Jayme Yang Work Phone: [facility] 04-04-2023 07:48-0400 Respiratory rate 20 /min Dr. Jayme Yang Work Phone: [facility] 04-04-2023 07:48-0400 SaO2% (BldA) [Mass fraction] 94 % Dr. Jayme Yang Work Phone: [facility] 04-04-2023 07:48-0400 Systolic blood pressure 160 mm[Hg] Dr. Jayme Yang Work Phone: [facility] 03-26-2023 14:37-0400 Heart rate 88 /min Dr. Jayme Yang Work Phone: [facility] 03-26-2023 14:37-0400 Respiratory rate 20 /min Dr. Jayme Yang Work Phone: [facility] 03-26-2023 14:37-0400 SaO2% (BldA) [Mass fraction] 91 % Dr. Jayme Yang Work Phone: [facility] 03-26-2023 13:00-0400 Body temperature 98 [degF] Dr. Jayme Yang Work Phone: [facility] 03-26-2023 13:00-0400 Diastolic blood pressure 86 mm[Hg] Dr. Jayme Yang Work Phone: [facility] 03-26-2023 13:00-0400 Systolic blood pressure 158 mm[Hg] Dr. Jayme Yang Work Phone: [facility] 03-25-2023 21:00-0400 Inhaled oxygen flow rate 3 L/min Dr. Jayme Yang Work Phone: [facility] 03-25-2023 13:46-0400 Body height 170.[address] Jayme Yang Work Phone: [facility] 03-25-2023 13:46-0400 Body weight 97.[address] Jayme Yang Work Phone: [facility] 03-21-2023 22:30-0400 Body mass index (BMI) [Ratio] 33.5 kg/m2 Dr. Jayme Yang Work Phone: [facility] 02-07-2023 08:00-0400 Body height 170.[address] Jayme Yang Work Phone: 6(628)397-080102 [place] [address] 02-07-2023 08:00-0400 Body mass index (BMI) [Ratio] 36.3 kg/m2 Dr. Jayme Yang Work Phone: [facility] 02-07-2023 08:00-0400 Body temperature 97.2 [degF] Dr. Jayme Yang Work Phone: [facility] 02-07-2023 08:00-0400 Body weight 105.[address] Jayme Yang Work Phone: [facility] 02-07-2023 08:00-0400 Diastolic blood pressure 76 mm[Hg] Dr. Jayme Yang Work Phone: [facility] 02-07-2023 08:00-0400 Heart rate 70 /min Dr. Jayme Yang Work Phone: [facility] 02-07-2023 08:00-0400 Respiratory rate 20 /min Dr. Jayme Yang Work Phone: [facility] 02-07-2023 08:00-0400 SaO2% (BldA) [Mass fraction] 93 % Dr. Jayme Yang Work Phone: [facility] 02-07-2023 08:00-0400 Systolic blood pressure 143 mm[Hg] Dr. Jayme Yang Work Phone: 5(012)385-949702 [place] [address] 10-22-2022 13:23-0500 Body height 170.[address] Jayme Yang Work Phone: 0(004)486-898143 [address] 10-22-2022 13:23-0500 Body mass index (BMI) [Ratio] 34 kg/m2 Dr. Jayme Yang Work Phone: 1(551)529-371212 [place] [address] 10-22-2022 13:23-0500 Body weight 98.[address] Jayme Yang Work Phone: 0(301)644-330512 [place] [address] 10-22-2022 13:23-0500 Diastolic blood pressure 87 mm[Hg] Dr. Jayme Yang Work Phone: 2(302)661-825143 [address] 10-22-2022 13:23-0500 Systolic blood pressure 146 mm[Hg] Dr. Jayme Yang Work Phone: 5(717)529-117212 [place] [address] 10-05-2022 18:18-0500 Body temperature 98.1 [degF] Dr. Jayme Yang Work Phone: 4(366)313-963843 [address] 10-05-2022 18:18-0500 Diastolic blood pressure 80 mm[Hg] Dr. Jayme Yang Work Phone: 7(391)589-580802 [place] [address] 10-05-2022 18:18-0500 Heart rate 88 /min Dr. Jayme Yang Work Phone: 1(190)544-513902 [place] [address] 10-05-2022 18:18-0500 Respiratory rate 18 /min Dr. Jayme Yang Work Phone: 9(683)658-601743 [address] 10-05-2022 18:18-0500 SaO2% (BldA) [Mass fraction] 97 % Dr. Jayme Yang Work Phone: 1(771)656-995402 [place] [address] 10-05-2022 18:18-0500 Systolic blood pressure 144 mm[Hg] Dr. Jayme Yang Work Phone: [facility] 10-05-2022 10:24-0500 Body height 170.[address] Jayme Yang Work Phone: [facility] 10-05-2022 10:24-0500 Body weight 98.[address] Jayme Yang Work Phone: [facility] 10-04-2022 23:35-0500 Inhaled oxygen flow rate 2 L/min Dr. Jayme Yang Work Phone: [facility] 10-04-2022 19:28-0500 Body temperature 98.8 [degF] Dr. Jayme Yang Work Phone: [facility] Work Phone: 10-04-2022 19:28-0500 Diastolic blood pressure 72 mm[Hg] Dr. Jayme Yang Work Phone: [facility] Work Phone: 10-04-2022 19:28-0500 Heart rate 84 /min Dr. Jayme Yang Work Phone: [facility] Work Phone: 10-04-2022 19:28-0500 Inhaled oxygen flow rate 2 L/min Dr. Jayme Yang Work Phone: [facility] Work Phone: 10-04-2022 19:28-0500 Respiratory rate 18 /min Dr. Jayme Yang Work Phone: [facility] Work Phone: 10-04-2022 19:28-0500 SaO2% (BldA) [Mass fraction] 94 % Dr. Jayme Yang Work Phone: [facility] Work Phone: 10-04-2022 19:28-0500 Systolic blood pressure 149 mm[Hg] Dr. Jayme Yang Work Phone: [facility] Work Phone: 10-04-2022 19:19-0500 Body height 170.[address] Jayme Yang Work Phone: [facility] Work Phone: 10-04-2022 19:19-0500 Body mass index (BMI) [Ratio] 33.9 kg/m2 Dr. Jayme Yang Work Phone: [facility] 10-04-2022 19:19-0500 Body weight 98.[address] Jayme Yang Work Phone: [facility] Work Phone: 10-02-2022 19:00-0500 Body temperature 97.6 [degF] Dr. Jayme Yang Work Phone: [facility] 10-02-2022 19:00-0500 Diastolic blood pressure 82 mm[Hg] Dr. Jayme Yang Work Phone: [facility] 10-02-2022 19:00-0500 Heart rate 83 /min Dr. Jayme Yang Work Phone: [facility] 10-02-2022 19:00-0500 Respiratory rate 18 /min Dr. Jayme Yang Work Phone: [facility] 10-02-2022 19:00-0500 SaO2% (BldA) [Mass fraction] 92 % Dr. Jayme Yang Work Phone: [facility] 10-02-2022 19:00-0500 Systolic blood pressure 184 mm[Hg] Dr. Jayme Yang Work Phone: [facility] 10-02-2022 10:25-0500 Body height 170.[address] Jayme Yang Work Phone: [facility] Work Phone: 10-02-2022 10:25-0500 Body mass index (BMI) [Ratio] 35 kg/m2 Dr. Jayme Yang Work Phone: [facility] 10-02-2022 10:25-0500 Body weight 101.[address] Jayme Yang Work Phone: [facility] 09-06-2022 14:55-0500 Body height 170.[address] Jayme Yang Work Phone: [facility] Work Phone: 09-06-2022 14:55-0500 Body mass index (BMI) [Ratio] 33.6 kg/m2 Dr. Jayme Yang Work Phone: [facility] 09-06-2022 14:55-0500 Body weight 97.[address] Jayme Yang Work Phone: [facility] 09-06-2022 14:55-0500 Diastolic blood pressure 91 mm[Hg] Dr. Jayme Yang Work Phone: [facility] 09-06-2022 14:55-0500 Heart rate 65 /min Dr. Jayme Yang Work Phone: [facility] 09-06-2022 14:55-0500 Respiratory rate 18 /min Dr. Jayme Yang Work Phone: [facility] 09-06-2022 14:55-0500 SaO2% (BldA) [Mass fraction] 94 % Dr. Jayme Yang Work Phone: [facility] 09-06-2022 14:55-0500 Systolic blood pressure 171 mm[Hg] Dr. Jayme Yang Work Phone: [facility] 08-13-2022 10:46-0500 Body height 170.[address] Jayme Yang Work Phone: [facility] Work Phone: 08-13-2022 10:46-0500 Body mass index (BMI) [Ratio] 33.5 kg/m2 Dr. Jayme Yang Work Phone: [facility] 08-13-2022 10:46-0500 Body temperature 98.2 [degF] Dr. Jayme Yang Work Phone: [facility] 08-13-2022 10:46-0500 Body weight 97.[address] Jayme Yang Work Phone: [facility] 08-13-2022 10:46-0500 Diastolic blood pressure 86 mm[Hg] Dr. Jayme Yang Work Phone: [facility] 08-13-2022 10:46-0500 Heart rate 72 /min Dr. Jayme Yang Work Phone: [facility] 08-13-2022 10:46-0500 Respiratory rate 18 /min Dr. Jayme Yang Work Phone: [facility] 08-13-2022 10:46-0500 SaO2% (BldA) [Mass fraction] 96 % Dr. Jayme Yang Work Phone: [facility] 08-13-2022 10:46-0500 Systolic blood pressure 182 mm[Hg] Dr. Jayme Yang Work Phone: [facility] 06-21-2022 08:15-0400 Body height 170.[address] Jayme Yang Work Phone: [facility] Work Phone: 06-21-2022 08:15-0400 Body weight 92.[address] Jayme Yang Work Phone: [facility] 06-21-2022 08:15-0400 Heart rate 88 /min Dr. Jayme Yang Work Phone: [facility] 06-21-2022 08:15-0400 SaO2% (BldA) [Mass fraction] 93 % Dr. Jayme Yang Work Phone: [facility] 04-24-2022 13:32-0400 Body mass index (BMI) [Ratio] 30 kg/m2 Dr. Jayme Yang Work Phone: [facility] Work Phone: 04-24-2022 13:32-0400 Body weight 87.[address] Jayme Yang Work Phone: [facility] Work Phone: 04-24-2022 13:32-0400 Diastolic blood pressure 86 mm[Hg] Dr. Jayme Yang Work Phone: [facility] Work Phone: 04-24-2022 13:32-0400 Heart rate 82 /min Dr. Jayme Yang Work Phone: [facility] Work Phone: 04-24-2022 13:32-0400 Respiratory rate 18 /min Dr. Jayme Yang Work Phone: [facility] Work Phone: 04-24-2022 13:32-0400 SaO2% (BldA) [Mass fraction] 95 % Dr. Jayme Yang Work Phone: [facility] Work Phone: 04-24-2022 13:32-0400 Systolic blood pressure 163 mm[Hg] Dr. Jayme Yang Work Phone: [facility] Work Phone: 02-13-2022 11:30-0400 Diastolic blood pressure 90 mm[Hg] Dr. Jayme Yang Work Phone: [facility] Work Phone: 02-13-2022 11:30-0400 Systolic blood pressure 174 mm[Hg] Dr. Jayme Yang Work Phone: [facility] Work Phone: 02-13-2022 11:30-0400 Diastolic blood pressure 90 mm[Hg] Dr. Jayme Yang Work Phone: [facility] Work Phone: 02-13-2022 11:30-0400 Systolic blood pressure 174 mm[Hg] Dr. Jayme Yang Work Phone: [facility] Work Phone: 02-13-2022 10:50-0400 Body height 170.[address] Jayme Yang Work Phone: [facility] Work Phone: 02-13-2022 10:50-0400 Body mass index (BMI) [Ratio] 33 kg/m2 Dr. Jayme Yang Work Phone: [facility] Work Phone: 02-13-2022 10:50-0400 Body temperature 97.4 [degF] Dr. Jayme Yang Work Phone: [facility] Work Phone: 02-13-2022 10:50-0400 Body weight 95.[address] Jayme Yang Work Phone: [facility] Work Phone: 02-13-2022 10:50-0400 Heart rate 80 /min Dr. Jayme Yang Work Phone: [facility] Work Phone: 02-13-2022 10:50-0400 Respiratory rate 16 /min Dr. Jayme Yang Work Phone: [facility] Work Phone: 02-13-2022 10:50-0400 SaO2% (BldA) [Mass fraction] 91 % Dr. Jayme Yang Work Phone: [facility] Work Phone: 02-13-2022 10:50-0400 Body height 170.[address] Jayme Yang Work Phone: [facility] Work Phone: 02-13-2022 10:50-0400 Body mass index (BMI) [Ratio] 33 kg/m2 Dr. Jayme Yang Work Phone: [facility] Work Phone: 02-13-2022 10:50-0400 Body temperature 97.4 [degF] Dr. Jayme Yang Work Phone: [facility] Work Phone: 02-13-2022 10:50-0400 Body weight 95.[address] Jayme Yang Work Phone: [facility] Work Phone: 02-13-2022 10:50-0400 Heart rate 80 /min Dr. Jayme Yang Work Phone: [facility] Work Phone: 02-13-2022 10:50-0400 Respiratory rate 16 /min Dr. Jayme Yang Work Phone: [facility] Work Phone: 02-13-2022 10:50-0400 SaO2% (BldA) [Mass fraction] 91 % Dr. Jayme Yang Work Phone: [facility] Work Phone: 01-26-2022 09:58-0400 Body mass index (BMI) [Ratio] 33.5 kg/m2 Dr. Jayme Yang Work Phone: [facility] Work Phone: 01-26-2022 09:58-0400 Body weight 97.[address] Jayme Yang Work Phone: [facility] Work Phone: 01-26-2022 09:58-0400 Diastolic blood pressure 78 mm[Hg] Dr. Jayme Yang Work Phone: [facility] Work Phone: 01-26-2022 09:58-0400 Heart rate 69 /min Dr. Jayme Yang Work Phone: [facility] Work Phone: 01-26-2022 09:58-0400 Respiratory rate 18 /min Dr. Jayme Yang Work Phone: [facility] Work Phone: 01-26-2022 09:58-0400 Systolic blood pressure 143 mm[Hg] Dr. Jayme Yang Work Phone: [facility] Work Phone: 01-26-2022 09:58-0400 Body mass index (BMI) [Ratio] 33.5 kg/m2 Dr. Jayme Yang Work Phone: [facility] Work Phone: 01-26-2022 09:58-0400 Body weight 97.[address] Jayem Yang Work Phone: [facility] Work Phone: 01-26-2022 09:58-0400 Diastolic blood pressure 78 mm[Hg] Dr. Jayme Yang Work Phone: [facility] Work Phone: 01-26-2022 09:58-0400 Heart rate 69 /min Dr. Jayme Yang Work Phone: [facility] Work Phone: 01-26-2022 09:58-0400 Respiratory rate 18 /min Dr. Jayme Yang Work Phone: [facility] Work Phone: 01-26-2022 09:58-0400 Systolic blood pressure 143 mm[Hg] Dr. Jayme Yang Work Phone: [facility] Work Phone: 12-23-2021 09:38-0400 Heart rate 75 /min Dr. Jayme Yang Work Phone: [facility] Work Phone: 12-23-2021 09:28-0400 Body temperature 97.1 [degF] Dr. Jayme Yang Work Phone: [facility] Work Phone: 12-23-2021 09:28-0400 Diastolic blood pressure 93 mm[Hg] Dr. Jayme Yang Work Phone: [facility] Work Phone: 12-23-2021 09:28-0400 Respiratory rate 18 /min Dr. Jayme Yang Work Phone: [facility] Work Phone: 12-23-2021 09:28-0400 SaO2% (BldA) [Mass fraction] 98 % Dr. Jayme Yang Work Phone: [facility] Work Phone: 12-23-2021 09:28-0400 Systolic blood pressure 163 mm[Hg] Dr. Jayme Yang Work Phone: [facility] Work Phone: 12-23-2021 03:23-0400 Inhaled oxygen flow rate 2 L/min Dr. Jayme Yang Work Phone: [facility] Work Phone: 12-21-2021 15:35-0400 Body height 170.[address] Jayme Yang Work Phone: [facility] Work Phone: 12-21-2021 15:35-0400 Body mass index (BMI) [Ratio] 33 kg/m2 Dr. Jayme Yang Work Phone: [facility] Work Phone: 12-21-2021 15:35-0400 Body weight 95.[address] Jayme Yang Work Phone: [facility] Work Phone: 12-18-2021 09:33-0400 Body weight 101.[address] Jayme Yang Work Phone: [facility] Work Phone: 12-18-2021 08:53-0400 Body mass index (BMI) [Ratio] 37 kg/m2 Dr. Jayme Yang Work Phone: [facility] Work Phone: 12-13-2021 10:04-0400 Body mass index (BMI) [Ratio] 37 kg/m2 Dr. Jayme Yang Work Phone: [facility] Work Phone: 12-13-2021 10:04-0400 Body weight 101.[address] Jayme Yang Work Phone: [facility] Work Phone: 12-13-2021 10:04-0400 Diastolic blood pressure 80 mm[Hg] Dr. Jayme Yang Work Phone: [facility] Work Phone: 12-13-2021 10:04-0400 Heart rate 80 /min Dr. Jayme Yang Work Phone: [facility] Work Phone: 12-13-2021 10:04-0400 Respiratory rate 16 /min Dr. Jayme Yang Work Phone: [facility] Work Phone: 12-13-2021 10:04-0400 Systolic blood pressure 159 mm[Hg] Dr. Jayme Yang Work Phone: [facility] Work Phone: 12-13-2021 10:04-0400 Body mass index (BMI) [Ratio] 37 kg/m2 Dr. Jayme Yang Work Phone: [facility] Work Phone: 12-13-2021 10:04-0400 Body weight 101.[address] Jayme Yang Work Phone: [facility] Work Phone: 12-13-2021 10:04-0400 Diastolic blood pressure 80 mm[Hg] Dr. aJyme Yang Work Phone: [facility] Work Phone: 12-13-2021 10:04-0400 Heart rate 80 /min Dr. Jayme Yang Work Phone: [facility] Work Phone: 12-13-2021 10:04-0400 Respiratory rate 16 /min Dr. Jayme Yang Work Phone: [facility] Work Phone: 12-13-2021 10:04-0400 Systolic blood pressure 159 mm[Hg] Dr. Jayme Yang Work Phone: [facility] Work Phone: 11-06-2021 07:30-0500 Body mass index (BMI) [Ratio] 37.8 kg/m2 Dr. Jayme Yang Work Phone: [facility] Work Phone: 11-06-2021 07:30-0500 Body weight 103.[address] Jayme Yang Work Phone: [facility] Work Phone: 11-06-2021 07:30-0500 Diastolic blood pressure 92 mm[Hg] Dr. Jayme Yang Work Phone: [facility] Work Phone: 11-06-2021 07:30-0500 Heart rate 64 /min Dr. Jayme Yang Work Phone: [facility] Work Phone: 11-06-2021 07:30-0500 Respiratory rate 18 /min Dr. Jayme Yang Work Phone: [facility] Work Phone: 11-06-2021 07:30-0500 Systolic blood pressure 162 mm[Hg] Dr. Jayme Yang Work Phone: [facility] Work Phone: 10-13-2021 09:10-0500 Body mass index (BMI) [Ratio] 37.5 kg/m2 Dr. Jayme Yang Work Phone: [facility] Work Phone: 10-13-2021 09:10-0500 Body temperature 97.3 [degF] Dr. Jayme Yang Work Phone: [facility] Work Phone: 10-13-2021 09:10-0500 Body weight 102.[address] Jayme Yang Work Phone: [facility] Work Phone: 10-13-2021 09:10-0500 Diastolic blood pressure 82 mm[Hg] Dr. Jayme Yang Work Phone: [facility] Work Phone: 10-13-2021 09:10-0500 Heart rate 72 /min Dr. Jayme Yang Work Phone: [facility] Work Phone: 10-13-2021 09:10-0500 Respiratory rate 16 /min Dr. Jayme Yang Work Phone: [facility] Work Phone: 10-13-2021 09:10-0500 SaO2% (BldA) [Mass fraction] 94 % Dr. Jayme Yang Work Phone: [facility] Work Phone: 10-13-2021 09:10-0500 Systolic blood pressure 155 mm[Hg] Dr. Jayme Yang Work Phone: [facility] Work Phone: 09-26-2021 08:17-0500 Body mass index (BMI) [Ratio] 36.8 kg/m2 Dr. Jayme Yang Work Phone: [facility] Work Phone: 09-26-2021 08:17-0500 Body weight 100.[address] Jayme Yang Work Phone: [facility] Work Phone: 08-25-2021 08:36-0500 Body temperature 96.7 [degF] Dr. Jayme Yang Work Phone: [facility] Work Phone: 08-25-2021 08:36-0500 Body weight 102.[address] Jayme Yang Work Phone: [facility] Work Phone: 08-25-2021 08:36-0500 Diastolic blood pressure 82 mm[Hg] Dr. Jayme Yang Work Phone: [facility] Work Phone: 08-25-2021 08:36-0500 Heart rate 84 /min Dr. Jayme Yang Work Phone: [facility] Work Phone: 08-25-2021 08:36-0500 Respiratory rate 18 /min Dr. Jayme Yang Work Phone: [facility] Work Phone: 08-25-2021 08:36-0500 SaO2% (BldA) [Mass fraction] 94 % Dr. Jayme Yang Work Phone: [facility] Work Phone: 08-25-2021 08:36-0500 Systolic blood pressure 130 mm[Hg] Dr. Jayme Yang Work Phone: [facility] Work Phone: 03-22-2017 09:32-0400 BMI (Body Mass Index) 34.12 kg/m2 [facility] Work Phone: 03-22-2017 09:32-0400 BP Diastolic 88 mm[Hg] [facility] Work Phone: 03-22-2017 09:32-0400 BP Systolic 146 mm[Hg] [facility] Work Phone: 03-22-2017 09:32-0400 Height 167.64 cm [facility] Work Phone: 03-22-2017 09:32-0400 Pulse (Heart Rate) 72 /min Kaylene [facility] Work Phone: 03-22-2017 09:32-0400 Respiratory Rate 20 /min Kaylene [facility] Work Phone: 03-22-2017 09:32-0400 Weight 95.89 kg [facility] Work Phone: 12-13-2016 14:06-0400 Heart rate 71 /min Harumi Mary [facility] Work Phone: 12-13-2016 13:33-0400 BMI (Body Mass Index) 34.21 kg/m2 Yasmin Roland RN [facility] Work Phone: 12-13-2016 13:33-0400 BP Diastolic 78 mm[Hg] Yasmin Roland RN [facility] Work Phone: 12-13-2016 13:33-0400 BP Systolic 138 mm[Hg] Yasmin Roland RN [facility] Work Phone: 12-13-2016 13:33-0400 Height 167.64 cm Yasmin Roland RN [facility] Work Phone: 12-13-2016 13:33-0400 Pulse (Heart Rate) 80 /min Yasmin Roland RN [facility] Work Phone: 12-13-2016 13:33-0400 Respiratory Rate 16 /min Yasmin Roland RN [facility] Work Phone: 12-13-2016 13:33-0400 Weight 96.16 kg Yasmin Roland RN [facility] Work Phone: Encounters Encounter Date Encounter Type Care Provider Facility Start: 05-20-2025 End: 05-20-2025 Emerald Campos [employer] [facility] Work Phone: Start: 05-20-2025 End: 05-20-[address] Jayme Yang MD Work Phone: -[facility] Start: 04-06-2025 End: 04-06-2025 Dr. [facility] Work Phone: Start: 04-06-2025 End: 04-06-[address] Jayme Yang MD Work Phone: [facility] Start: 04-03-2025 End: 04-03-[address] Jayme Yang MD Work Phone: -Laboratory Start: 04-03-2025 End: 04-03-2025 Dr. Keo SCHNEIDERLaboratory Work Phone: Start: 04-03-2025 End: 04-03-2025 ambulatory Keo Montemayor Facility:[facility] Start: 03-04-2025 End: 03-04-[address] Jayme Yang MD Work Phone: [facility] Work Phone: Start: 03-04-2025 End: 03-04-2025 Dr. Marycruz Yen MD -Laboratory [facility] Work Phone: Start: 03-04-2025 End: 03-04-2025 ambulatory Jayme Yang Facility:[facility] Start: 02-15-2025 End: 02-15-2025 Dr. Jayme Yang MD Work Phone: -Emergency Department Work Phone: Start: 02-15-2025 End: 02-15-2025 Emergency department patient visit Dr. Jayme Yang MD Work Phone: [facility] Work Phone: Start: 01-06-2025 End: 01-06-[address] Jayme Yang MD Work Phone: [facility] Work Phone: Start: 01-06-2025 End: 01-06-[address] Juany Bellamy DO -Laboratory, [place] Work Phone: Start: 01-06-2025 End: 01-06-2025 Dr. Juany Bellamy DO -Laboratory [facility] Work Phone: Start: 01-06-2025 End: 01-06-2025 ambulatory Jayme Yang Facility:[facility] Start: 12-25-2024 End: 12-25-[address] Jayme Yang MD Work Phone: [facility] Work Phone: Start: 12-25-2024 End: 12-25-[address] Surinder Larson MD -Laboratory, [place] Work Phone: Start: 12-25-2024 End: 12-25-2024 Dr. Surinder Larson MD -Laboratory, [place] Work Phone: Start: 12-25-2024 End: 12-25-2024 ambulatory Surinder Larson Facility:[facility] Start: 12-10-2024 ambulatory Jayme Yang Facility:[facility] Start: 12-10-2024 Non-patient / Non-visit Dr. Briana Cordero MD -[facility] Start: 12-10-2024 Dr. Clifford Cordero MD -[facility] Start: 12-10-2024 End: 12-10-[address] Jayme Yang MD Work Phone: [facility] Work Phone: Start: 12-10-2024 End: 12-10-2024 Patient encounter procedure Teja Jefferson [employer] -Cardiovascular Services Work Phone: Start: 12-10-2024 End: 12-10-2024 Teja Jefferson [employer] -Cardiovascular Services Work Phone: Start: 12-10-2024 End: 12-10-2024 ambulatory Jayme Yang Facility:[facility] Start: 11-27-2024 End: 11-27-2024 Patient encounter procedure Teja Jefferson [employer] -[facility] Work Phone: Start: 11-27-2024 End: 11-27-2024 Teja Jefferson [employer] -[facility] Work Phone: Start: 11-27-2024 End: 11-27-2024 ambulatory Jayme Yang Facility:[facility] Start: 11-17-2024 End: 11-17-2024 Patient encounter procedure Emerald Campos NP-C -[facility] Work Phone: Start: 11-17-2024 End: 11-17-2024 Emerald Campos NP-C -[facility] Work Phone: Start: 11-17-2024 End: 11-17-2024 ambulatory Jayme Yang Facility:[facility] Start: 10-26-2024 End: 10-26-[address] Jayme Yang MD -Laboratory, [place] Work Phone: Start: 10-26-2024 End: 10-26-2024 Dr. Jayme Yang MD -Laboratory, [facility] Work Phone: Start: 10-26-2024 End: 10-26-2024 ambulatory Jayme Yang Facility:[facility] Start: 10-06-2024 End: 10-06-[address] Keo Montemayor DO -[facility] Work Phone: Start: 10-06-2024 End: 10-06-2024 [facility] Work [facility]: Start: 10-06-2024 End: 10-06-2024 ambulatory Keo Montemayor Facility:[facility] Start: 10-05-2024 End: 10-05-[address] Keo Montemayor DO -Laboratory, [place] Work Phone: Start: 10-05-2024 End: 10-05-2024 Dr. Keo Montemayor DO -Laboratory, [facility] Work Phone: Start: 10-05-2024 End: 10-05-2024 ambulatory Keo Montemayor Facility:[facility] Start: 09-12-2024 End: 09-12-2024 Dr. Marycruz Yen MD -Laboratory Work Phone: Start: 09-12-2024 End: 09-12-2024 ambulatory Marycruz Yen Facility:[facility] Start: 08-06-2024 End: 08-06-2024 ambulatory Jayme Yang Facility:[facility] Start: 07-17-2024 End: 07-17-2024 ambulatory Juany Bellamy Facility:[facility] Start: 06-26-2024 End: 06-26-2024 ambulatory Jayme Yang Facility:[facility] Start: 06-25-2024 End: 06-25-2024 ambulatory Usha Lowry Facility:[facility] Start: 06-23-2024 End: 06-23-2024 ambulatory Jayme Yang Facility:[facility] Start: 05-27-2024 End: 05-27-2024 ambulatory Jayme Yang Facility:[facility] Start: 05-22-2024 End: 05-22-2024 ambulatory Jayme Yang Facility:[facility] Start: 01-10-2024 End: 01-10-[address] Jayme Yang Work Phone: [facility] Work Phone: Start: 01-10-2024 End: 01-10-2024 Dr. Jayme Yang Work Phone: [facility] [place] Work Phone: Start: 12-11-2023 End: 12-11-[address] Jayme Yang Work Phone: [facility] Work Phone: Start: 12-11-2023 End: 12-11-2023 Dr. Jayme Yang Work Phone: [facility] Work Phone: Start: 11-21-2023 End: 11-21-2023 Dr. Jayme Yang Work Phone: [facility] Work Phone: Start: 11-19-2023 End: 11-19-2023 Dr. Jayme Yang Work Phone: [facility] Cancer [facility] Work Phone: Start: 11-13-2023 Dr. Jayme Rollins en Work Phone: [facility] Inpatient Physicians Work Phone: Start: 11-13-2023 Dr. Jayme Rollins en Work Phone: [facility] Start: 11-12-2023 End: 11-13-2023 Evaluation and management of inpatient Dr. Jayme Yang Work Phone: [facility] Work Phone: Start: 11-12-2023 End: 11-13-2023 Dr. [facility] Start: 11-12-2023 Dr. Jayme Rollins en Work Phone: [facility] Work Phone: Start: 11-12-2023 Dr. Jayme Rollins en Work Phone: [facility] Start: 11-12-2023 Dr. Jayme Rollins en Work Phone: [facility] Start: 11-11-[address] Jayme Yang Work Phone: [facility] Work Phone: Start: 11-11-2023 End: 11-11-2023 Dr. Jay[facility] Start: 11-08-2023 Dr. Jayme Rollins en Work Phone: [facility]-Radiation Oncology Start: 10-18-2023 Dr. Jayme Rollins en Work Phone: [facility] Work Phone: Start: 10-16-2023 End: 10-16-[address] Jayme Yang Work Phone: [facility] Work Phone: Start: 10-16-2023 End: 10-16-2023 Dr. Jayme Yang Work Phone: [facility]-Laboratory Work Phone: Start: 10-16-2023 End: 10-16-2023 Dr. Jayme Yang Work Phone: [facility] Work Phone: Start: 10-09-2023 End: 10-09-2023 Dr. Jayme Yang Work Phone: [facility] Work Phone: Start: 10-02-2023 End: 10-02-2023 Dr. Jayme Yang Work Phone: [facility] Work Phone: Start: 09-25-2023 End: 09-25-2023 Dr. Jayme Yang Work Phone: [facility] Work Phone: Start: 09-24-2023 Dr. Jayme Rollins en Work Phone: [facility]-Radiation Oncology Start: 09-23-2023 Dr. Jayme bowie Work Phone: [facility] Inpatient Physicians Work Phone: Start: 09-22-2023 End: 09-24-2023 Evaluation and management of inpatient Dr. Jayme Yang Work Phone: [facility] Work Phone: Start: 09-22-2023 End: 09-24-2023 Dr. Jayme Yang Work Phone: [facility]-Medical Surgical 3 Work Phone: Start: 09-22-2023 Dr. Jayme bowie Work Phone: [facility] Phys[facility] Work Phone: Start: 09-21-2023 Dr. Jayme Rollins en Work Phone: [facility] Work Phone: Start: 09-20-2023 Dr. Jayme Rollins en Work Phone: [facility] Work Phone: Start: 09-20-[address] Jayme Yang Work Phone: [facility] Work Phone: Start: 09-20-[address] Jayme Yang Work Phone: [facility]-Radiation Oncology Start: 09-20-2023 Dr. Jayme Rollins en Work Phone: [facility]-Medical Surgical 3 Work Phone: Start: 09-18-2023 End: 09-18-[address] Jayme Yang Work Phone: [facility] Work Phone: Start: 09-18-2023 End: 09-18-2023 Dr. Jayme Yang Work Phone: [facility] Work Phone: Start: 09-16-2023 End: 09-16-[address] Jayme Yang Work Phone: [facility] Work Phone: Start: 09-16-2023 End: 09-16-[address] [facility] Start: 09-16-2023 End: 09-16-2023 Dr. [facility] Start: 09-11-2023 End: 09-11-[address] Jayme Yang Work Phone: [facility] Work Phone: Start: 09-11-2023 End: 09-11-2023 Dr. Jayme Yang Work Phone: [facility] Work Phone: Start: 09-05-2023 Non-patient / Non-visit Dr. Adry Yang Work Phone: [facility] Inpatient Physicians Work Phone: Start: 09-05-2023 Dr. Jayme Rollins en Work Phone: [facility] Work Phone: Start: 09-04-2023 End: 09-05-2023 Evaluation and management of inpatient [facility] Jay[facility] Start: 09-04-2023 End: 09-05-2023 Dr. Jay[facility] Work [facility] Start: 08-29-2023 Non-patient / Non-visit Dr. Adry Yang Work Phone: [facility] Start: 08-29-2023 Dr. Jayme Rollins en Work Phone: [facility] Start: 08-29-[address] Jayme Yang Work Phone: [facility]-Radiation Oncology Start: 08-29-2023 End: 08-29-[address] Jayme Yang Work Phone: [facility] Work Phone: Start: 08-29-2023 End: 08-29-[address] Jayme Yang Work Phone: [facility] Work Phone: Start: 08-29-2023 End: 08-29-2023 Dr. Jayme Yang Work Phone: [facility] Work Phone: Start: 08-13-2023 End: 08-13-[address] Jayme Yang Work Phone: [facility] Work Phone: Start: 08-13-2023 End: 08-13-2023 Dr. Jayme Yang Work Phone: [facility] Work Phone: Start: 08-07-2023 End: 08-07-2023 Admission to same day surgery center Dr[facility] Start: 08-07-2023 End: 08-07-[address] Jayme Yang Work Phone: [facility] Work Phone: Start: 08-07-2023 End: 08-07-2023 Dr. [facility] Start: 07-02-2023 End: 07-02-[address] Jayme Yang Work Phone: [facility] Work Phone: Start: 07-02-2023 End: 07-02-2023 Dr. Jayme Yang Work Phone: [facility] Work Phone: Start: 06-04-2023 End: 06-04-[address] Jayme Yang Work Phone: [facility] Work Phone: Start: 06-04-2023 End: 06-04-[address] Jayme Yang Work Phone: [facility] Work Phone: Start: 06-04-2023 End: 06-04-2023 Dr. Jayme Yang Work Phone: [facility] Work Phone: Start: 05-30-2023 End: 05-30-[address] Jayme Yang Work Phone: [facility] Work Phone: Start: 05-30-2023 End: 05-30-[address] Jayme Yang Work Phone: [facility] Work Phone: Start: 05-30-2023 End: 05-30-2023 Dr. Jayme Yang Work Phone: [facility] Work Phone: Start: 05-24-2023 End: 05-24-[address] Jayme Yang Work Phone: [facility] Work Phone: Start: 05-24-2023 End: 05-24-2023 Dr. Jayme Yang Work Phone: [facility] Work Phone: Start: 05-21-2023 End: 05-21-[address] [facility] Work Phone: Start: 05-13-2023 End: 05-13-[address] Jayme Yang Work Phone: [facility] Work Phone: Start: 05-13-2023 End: 05-13-[address] [facility] Work Phone: Start: 04-16-2023 End: 04-16-[address] Jayme Yang Work Phone: [facility] Work Phone: Start: 04-16-2023 End: 04-16-[address] Jayme Yang Work Phone: [facility]-Laboratory Work Phone: Start: 04-04-2023 End: 04-04-[address] [facility] Work Phone: Start: 04-01-2023 End: 04-01-[address] Jayme Yang Work Phone: [facility] Work Phone: Start: 04-01-2023 End: 04-01-[address] Jayme Yang Work Phone: [facility] [place] Work Phone: Start: 03-26-2023 Non-patient / Non-visit Dr. Adry Yang Work Phone: [facility] Start: 03-25-2023 Non-patient / Non-visit Dr. Adry Yang Work Phone: [facility] Start: 03-24-2023 Non-patient / Non-visit Dr. Adry Yang Work Phone: [facility] Start: 03-23-2023 Non-patient / Non-visit Dr. Adry Yang Work Phone: [facility] Start: 03-22-2023 Non-patient / Non-visit Dr. Adry Yang Work Phone: [facility] Start: 03-21-2023 End: 03-26-2023 Evaluation and management of inpatient Dr. Jayme Yang Work Phone: [facility]Medical Surgical 3 Start: 03-21-2023 Non-patient / Non-visit Dr. Adry Yang Work Phone: [facility] Start: 02-28-2023 End: 02-28-[address] Jayme Yang Work Phone: [facility] Work Phone: Start: 02-28-2023 End: 02-28-[address] Jayme Yang Work Phone: [facility] Start: 02-07-2023 End: 02-07-[address] Jayme Yang Work Phone: [facility] Start: 01-03-2023 End: 01-03-[address] Jayme Yang Work Phone: [facility] Start: 12-20-2022 End: 12-20-[address] Jayme Yang Work Phone: [facility] Work Phone: Start: 12-20-2022 End: 12-20-[address] Jayme Yang Work Phone: [facility] Start: 12-20-2022 End: 12-20-2022 Dr. Jayme Yang Work Phone: [facility] Start: 11-09-2022 End: 11-09-[address] Jayme Yang Work Phone: [facility] Work Phone: Start: 11-09-2022 End: 11-09-[address] Jayme Yang Work Phone: [facility] Start: 11-09-2022 End: 11-09-2022 Dr. Jayme Yang Work Phone: [facility] Start: 11-08-2022 End: 11-08-[address] Jayme Yang Work Phone: [facility] Work Phone: Start: 11-08-2022 End: 11-08-[address] Jayme Yang Work Phone: [facility] Start: 11-08-2022 End: 11-08-2022 Dr. Jayme Yang Work Phone: [facility] Start: 10-22-2022 End: 10-22-2022 Dr. Jayme Yang Work Phone: [facility] Start: 10-05-2022 Non-patient / Non-visit Dr. Adry Yang Work Phone: [facility] Start: 10-05-2022 Dr. Jayme bowie Work Phone: [facility] Start: 10-04-2022 Non-patient / Non-visit Dr. Adry Yang Work Phone: [facility] Start: 10-04-2022 End: 10-05-2022 Evaluation and management of inpatient Dr. Jayme Yang Work Phone: [facility] Surgical 3 Start: 10-04-2022 End: 10-05-[address] Jayme Yang Work Phone: [facility] Work Phone: Start: 10-04-2022 End: 10-05-2022 Dr. Jayme Yang Work Phone: [facility] Surgical 3 Start: 10-02-2022 End: 10-02-2022 Emergency department patient visit Dr. Jayme Yang Work Phone: [facility]-Emergency Department Start: 10-02-2022 End: 10-02-2022 Dr. Jayme Yang Work Phone: [facility] Start: 10-02-2022 End: 10-02-[address] Jayme Yang Work Phone: [facility] Work Phone: Start: 10-02-2022 End: 10-02-[address] Jayme Yang Work Phone: [facility] Start: 10-02-2022 End: 10-02-2022 Dr. Jayme Yang Work Phone: [facility] Start: 09-06-2022 End: 09-06-[address] Jayme Yang Work Phone: [facility] Work Phone: Start: 09-06-2022 End: 09-06-[address] [facility] Start: 09-06-2022 End: 09-06-2022 Dr. Jayme Yang Work Phone: [facility] Start: 09-06-2022 End: 09-06-[address] Jayme Yang Work Phone: [facility] Start: 09-06-2022 End: 09-06-2022 Dr. Jayme Yang Work Phone: [facility] Start: 08-13-2022 End: 08-13-[address] [facility] Start: 08-13-2022 End: 08-13-2022 Dr. [facility] Start: 08-08-2022 End: 08-08-[address] Jayme Yang Work Phone: [facility] Work Phone: Start: 08-08-2022 End: 08-08-[address] Jayme Yang Work Phone: [facility]Cardiov[facility] Start: 08-08-2022 End: 08-08-2022 Dr. Jayme Yang Work Phone: [facility] Start: 07-17-2022 End: 07-17-[address] Jayme Yang Work Phone: [facility] Work Phone: Start: 07-17-2022 End: 07-17-[address] Jayme Yang Work Phone: [facility]-Laboratory Start: 06-22-2022 Non-patient / Non-visit Dr. Adry Yang Work Phone: [facility] Start: 06-21-2022 End: 06-21-[address] Jayme Yang Work Phone: [facility] Work Phone: Start: 06-21-2022 End: 06-21-[address] Jayme Yang Work Phone: [facility]-Pulmonary Services/Neurology Start: 04-24-2022 End: 04-24-[address] Jayme Yang Work Phone: [facility] Start: 04-12-2022 End: 04-12-[address] Jayme Yang Work Phone: [facility] Start: 03-28-2022 End: 03-28-[address] Jayme Yang Work Phone: [facility] Start: 02-13-2022 End: 02-13-[address] Jayme Yang Work Phone: [facility]-Pulmonary Medicine [facility] Start: 01-26-2022 End: 01-26-[address] Jayme Yang Work Phone: [facility] Start: 01-11-2022 End: 01-11-[address] [facility] Start: 01-09-2022 End: 01-09-[address] Jayme Yang Work Phone: [facility]-Pre-Admission Testing Start: 12-23-2021 Non-patient / Non-visit Dr. Adry Yang Work Phone: [facility] Start: 12-22-2021 Non-patient / Non-visit Dr. Adry Yang Work Phone: [facility] Start: 12-22-2021 Non-patient / Non-visit Dr. Adry Yang Work Phone: [facility] Start: 12-21-2021 Non-patient / Non-visit Dr. dAry Yang Work Phone: [facility] Start: 12-21-2021 End: 12-23-2021 Evaluation and management of inpatient Dr. Jayme Yang Work Phone: [facility]-Progressive Care Unit Start: 12-13-2021 End: 12-13-[address] Jayme Yang Work Phone: [facility] Start: 11-22-2021 Non-patient / Non-visit Dr. Adry Yang Work Phone: [facility] Start: 11-22-2021 End: 11-22-[address] Jayme Yang Work Phone: [facility]Cardiovas[facility] Start: 11-07-2021 Non-patient / Non-visit Dr. Adry Yang Work Phone: [facility] Start: 11-06-2021 End: 11-06-[address] Jayme Yang Work Phone: [facility] Start: 10-17-2021 End: 10-17-[address] Jayme Yang Work Phone: [facility] Start: 10-16-2021 End: 10-16-[address] Jayme Yang Work Phone: [facility]-Laboratory, Specimen Start: 10-13-2021 End: 10-13-[address] Jayme Yang Work Phone: [facility]-Medical Out Start: 10-05-2021 End: 10-05-[address] Jay[facility] Start: 10-05-2021 Non-patient / Non-visit Dr. Adry Yang Work Phone: [facility] Start: 10-05-2021 End: 10-05-[address] Jayme Yang [facility] Start: 10-04-2021 Non-patient / Non-visit Dr. Adry Yang Work Phone: [facility] Start: 10-04-2021 End: 10-04-[address] Jayme Yang Work Phone: [facility]-Pulmonary Services/Neurology Start: 09-26-2021 End: 09-26-[address] Jayme Yang Work Phone: [facility]Laboratory Start: 08-25-[address] Jayme Yang Work Phone: [facility] Procedures Date Procedure Procedure Detail Performing Clinician Start: 04-03-2025 Assay of prostate sp ecific antigen total Dr. Jayme Yang MD Work Phone: Start: 03-04-2025 Blood count smear mc rscp [...] rscp w/mnl difrntl wbc count Dr. Jayme aYng MD Work Phone: Start: 02-15-2025 Estimated creatinine [...] above: Performed By: #### T &S #### [place] [id number] Start: 03-22-2017 End: 03-22-2017 Dietary management education, guidance, and counseling Kaylene Chong Start: 03-22-2017 End: 03-22-2017 Follow Up Appt 6 months Teja Jefferson NP Work Phone: Start: 03-22-2017 End: 03-22-2017 PFM Teja Jefferson [employer] Work Phone: Start: 12-13-2016 End: 12-13-2016 Dietary [...] Phone: Investigation of transfusion reaction Dr. Jayme Ynag Work Phone: Investigation of transfusion reaction Dr. Jayme Yang Work Phone: Investigation of transfusion reaction Dr. Jayme Yang Work Phone: Nucleic acid assay Dr. Jayme Yang Work Phone: Plan of Treatment Date Care Activity Detail Author Start: 02-15-2025 [facility] Start: 02-15-2025 [facility] Start: 11-13-2023 Patient discharge [facility] Start: 11-12-2023 Oxygen therapy [facility] Start: 11-12-2023 Admission procedure [facility] Start: 11-12-2023 Admission procedure [facility] Start: 11-12-2023 Referral to community relations director [facility] Start: 11-12-2023 Continuous positive airway pressure ventilation treatment [facility] Start: 11-12-2023 Inhalation therapy procedure [facility] Start: 11-11-2023 Following clinical pathway protocol [facility] Start: 11-11-2023 Notification of physician [facility] Start: 11-11-2023 [facility] Start: 11-11-2023 Admission procedure [facility] Start: 11-11-2023 Troponin I measurement [facility] Start: 11-11-2023 Hospital admission, emergency, from emergency room, medical nature [facility] Start: 11-11-2023 [facility] Start: 09-24-2023 Patient discharge [facility] Start: 09-22-2023 Admission procedure [facility] Start: 09-20-2023 Oxygen therapy [facility] Start: 09-20-2023 Continuous positive airway pressure ventilation treatment [facility] Start: 09-20-2023 Assessment of risk of venous thromboembolism [facility] Start: 09-20-2023 Care regimes management [facility] Start: 09-20-2023 Catheterization of vein [facility] Start: 09-20-2023 Insertion of catheter into peripheral vein [facility] Start: 09-20-2023 Notification of physician [facility] Start: 09-20-2023 Providing care according to standard [facility] Start: 09-20-2023 Provision of activity privileges [facility] Start: 09-20-2023 Referral to occupational therapist [facility] Start: 09-20-2023 Referral to service [facility] Start: 09-20-2023 [facility] Start: 09-20-2023 Following clinical pathway protocol [facility] Start: 09-20-2023 Respiratory pathogens DNA and RNA panel - Respiratory specimen by IRINA with probe detection [facility] Start: 09-20-2023 Verification routine [facility] Start: 09-20-2023 Admission procedure [facility] Start: 09-20-2023 Hospital admission, emergency, from emergency room, medical nature [facility] Start: 09-20-2023 Respiratory microbial culture [facility] Start: 09-20-2023 Inhalation therapy procedure [facility] Start: 09-07-2023 Blood chemistry [facility] Start: 09-06-2023 Blood chemistry [facility] Start: 09-05-2023 Patient discharge [facility] Start: 09-05-2023 Blood chemistry [facility] Start: 09-05-2023 [facility] Start: 09-04-2023 Verification routine [facility] Start: 09-04-2023 Care regimes management [facility] Start: 09-04-2023 Notification of physician [facility] Start: 09-04-2023 End: 09-04-2023 [facility] Start: 09-04-2023 Following clinical pathway protocol [facility] Start: 09-04-2023 Admission procedure [facility] Start: 09-04-2023 Inhalation therapy procedure [facility] Start: 09-04-2023 [facility] Start: 08-07-2023 Anes integ extremities ant trunk & perineum nos [facility] Start: 08-07-2023 Plmt interstitial dev radiat tx prostate 1/mult [facility] Start: 08-07-2023 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 [facility] Start: 08-07-2023 Patient discharge [facility] Start: 08-07-2023 Ambulation without limitation [facility] Start: 08-07-2023 Medical regimen orders management [facility] Start: 08-07-2023 Medication education [facility] Start: 08-07-2023 [facility] Start: 04-04-2023 Patient referral [facility] Work Phone: Start: 03-26-2023 Patient discharge [facility] Start: 03-23-2023 Care planning and problem solving actions [facility] Start: 03-23-2023 Physiotherapy of chest [facility] Start: 03-22-2023 Care regimes management [facility] Start: 03-22-2023 Notification of physician [facility] Start: 03-22-2023 [facility] Start: 03-22-2023 Following clinical pathway protocol [facility] Start: 03-21-2023 Following clinical pathway protocol [facility] Start: 03-21-2023 Assessment of risk of venous thromboembolism [facility] Start: 03-21-2023 Elevation of head of bed [facility] Start: 03-21-2023 Inhalation therapy procedure [facility] Start: 03-21-2023 Insertion of catheter into peripheral vein [facility] Start: 03-21-2023 Methicillin resistant Staphylococcus aureus screening test [facility] Start: 03-21-2023 Oxygen therapy [facility] Start: 03-21-2023 Patient education [facility] Start: 03-21-2023 Providing care according to standard [facility] Start: 03-21-2023 Provision of activity privileges [facility] Start: 03-21-2023 Referral to service [facility] Start: 03-21-2023 [facility] Start: 03-21-2023 [facility] Start: 03-21-2023 Admission procedure [facility] Start: 03-21-2023 Respiratory microbial culture Respiratory Culture [facility] Start: 10-05-2022 Patient discharge [facility] Start: 10-05-2022 Blood chemistry [facility] Work Phone: Start: 10-05-2022 [facility] Work Phone: Start: 10-04-2022 Assessment of risk of venous thromboembolism [facility] Start: 10-04-2022 Care regimes management [facility] Start: 10-04-2022 Catheterization of vein [facility] Start: 10-04-2022 Incentive spirometry [facility] Start: 10-04-2022 Insertion of catheter into peripheral vein [facility] Start: 10-04-2022 Oxygen therapy [facility] Work Phone: Start: 10-04-2022 Providing care according to standard [facility] Start: 10-04-2022 Referral to occupational therapist [facility] Start: 10-04-2022 Referral to service [facility] Start: 10-04-2022 [facility] Start: 10-04-2022 Oxygen therapy [facility] Start: 10-04-2022 Following clinical pathway protocol [facility] Start: 10-04-2022 Continuous positive airway pressure ventilation treatment [facility] Work Phone: Start: 10-04-2022 Verification routine [facility] Work Phone: Start: 10-04-2022 Admission procedure [facility] Start: 10-04-2022 Patient referral to dietitian [facility] Start: 10-02-2022 Arthrocentesis aspir&/inj major jt/bursa w/o us [facility] Start: 10-02-2022 Following clinical pathway protocol [facility] Start: 10-02-2022 [facility] Start: 12-23-2021 Patient discharge [facility] Work Phone: Start: 12-22-2021 End: 12-22-2021 Notification of physician [facility] Work Phone: Start: 12-22-2021 End: 12-22-2021 Patient education [facility] Work Phone: Start: 12-22-2021 End: 12-22-2021 Pulse taking [facility] Work Phone: Start: 12-22-2021 End: 12-22-2021 Taking patient vital signs [facility] Work Phone: Start: 12-22-2021 End: 12-22-2021 Wound care [facility] Work Phone: Start: 12-22-2021 End: 12-22-2021 [facility] Work Phone: Start: 12-21-2021 Referral to community relations director [facility] Work Phone: Start: 12-21-2021 Assessment of risk of venous thromboembolism [facility] Work Phone: Start: 12-21-2021 Insertion of catheter into peripheral vein [facility] Work Phone: Start: 12-21-2021 Measuring intake and output [facility] Work Phone: Start: 12-21-2021 Oxygen therapy [facility] Work Phone: Start: 12-21-2021 Providing care according to standard [facility] Work Phone: Start: 12-21-2021 Provision of activity privileges [facility] Work Phone: Start: 12-21-2021 Referral to occupational therapist [facility] Work Phone: Start: 12-21-2021 Referral to service [facility] Work Phone: Start: 12-21-2021 [facility] Work Phone: Start: 12-21-2021 Following clinical pathway protocol [facility] Work Phone: Start: 12-21-2021 Admission procedure [facility] Work Phone: Start: 10-13-2021 Chemotherapy admn iv infusion tq ea hr CHEMO IV INFUSION ADDL HR [facility] Work Phone: Start: 10-13-2021 Chemotx admn iv nfs tq up 1 hr 09/30 sbst/drug CHEMO IV INFUSION 1 HR [facility] Work Phone: Start: 11-04-2017 End: 11-04-2017 Appointment [facility] Work Phone: Start: 03-22-2017 End: 03-22-2017 Appointment Appointment [facility] Work Phone: Start: 03-22-2017 End: 03-22-2017 Appointment Appointment [facility] Work Phone: Start: 03-22-2017 End: 03-22-2017 Follow Up Appt 6 months Follow Up Appt 6 months [facility] Work Phone: Start: 03-22-2017 End: 03-22-2017 PFM PFM [facility] Work Phone: Start: 12-13-2016 End: 02-07-2017 *BMP *BMP [facility] Work Phone: Start: 12-13-2016 End: 02-07-2017 CBC W Auto Differential panel - Blood *CBC without Diff [facility] Work Phone: Start: 12-13-2016 End: 12-13-2016 Electrocardiogram, complete EKG (In office) [facility] Work Phone: Start: 12-13-2016 End: 12-13-2016 Follow Up Appt 3 months Follow Up Appt 3 months [facility] Work Phone: Start: 12-13-2016 End: 12-13-2016 MMM MMM [facility] Work Phone: Start: 12-13-2016 End: 12-13-2016 Remote 30 day ecg rev/report 30 Day Holter Monitor [facility] Work Phone: Start: 12-13-2016 End: 12-13-2016 Tilt table evaluation Tilt Table Test [facility] Work Phone: Anaerobic Culture Anaerobic Culture [facility] Work Phone: Anaerobic microbial culture Anaerobic Cul ture [facility] Work Phone: Anion gap measurement [facility]: [facility] Anion gap measurement [facility] Bacteria identified in Body fluid by Culture [facility] Work Phone: Bacteria identified in Unspecified specimen by Anaerobe culture [facility] Work Phone: Bacterial culture Body Fluid Culture [facility] Work Phone: Body Fluid Culture Body Fluid Culture [facility] Work Phone: BUN/Creatinine ratio [facility] Work Phone: BUN/Creatinine ratio [facility] BUN/Creatinine ratio [facility] BUN/Creatinine ratio [facility] Calcium [Mass/volume ] in Serum or Plasma [facility] Work Phone: Calcium [Mass/volume ] in Serum or Plasma [facility] Calcium [Mass/volume ] in Serum or Plasma [facility] Calcium [Mass/volume ] in Serum or Plasma [facility] Carbon dioxide, tota l [Moles/volume] in Serum or Plasma [facility] Work Phone: Carbon dioxide, tota l [Moles/volume] in Serum or Plasma [facility] Carbon dioxide, tota l [Moles/volume] in Serum or Plasma [facility] Carbon dioxide, tota l [Moles/volume] in Serum or Plasma [facility] Chloride [Moles/volu me] in Serum or Plasma [facility] Work Phone: Chloride [Moles/volu me] in Serum or Plasma [facility] Chloride [Moles/volu me] in Serum or Plasma [facility] Chloride [Moles/volu me] in Serum or Plasma [facility] Creatinine [Moles/vo lume] in Serum or Plasma [facility] Work Phone: Creatinine [Moles/vo lume] in Serum or Plasma [facility] Creatinine [Moles/vo lume] in Serum or Plasma [facility] Creatinine [Moles/vo lume] in Serum or Plasma [facility] [facility] Glucose [Mass/volume ] in Serum or Plasma [facility] Work Phone: Glucose [Mass/volume ] in Serum or Plasma [facility] Glucose [Mass/volume ] in Serum or Plasma [facility] Glucose [Mass/volume ] in Serum or Plasma [facility] Hematocrit [Volume Fraction] of Blood [facility] Work Phone: Hematocrit [Volume Fraction] of Blood [facility] Hematocrit [Volume Fraction] of Blood [facility] Hematocrit [Volume Fraction] of Blood [facility] Hemoglobin [Mass/vol ume] in Blood [facility] Work Phone: Hemoglobin [Mass/vol ume] in Blood [facility] Hemoglobin [Mass/vol ume] in Blood [facility] Hemoglobin [Mass/vol ume] in Blood [facility] Hemoglobin A1c/Hemoglobin.total in Blood [facility] Investigation of transfusion reaction Gram Stain [facility] Work Phone: Leukocytes [#/volume ] in Blood [facility] Work Phone: Leukocytes [#/volume ] in Blood [facility] Leukocytes [#/volume ] in Blood [facility] Leukocytes [#/volume ] in Blood [facility] Magnesium [Mass/volu me] in Serum or Plasma [facility] Work Phone: Magnesium [Mass/volu me] in Serum or Plasma [facility] Mean corpuscular hem oglobin concentration determination [facility] Work Phone: Mean corpuscular hem oglobin concentration determination [facility] Mean corpuscular hem oglobin concentration determination [facility] Mean corpuscular hem oglobin concentration determination [facility] Mean corpuscular hem oglobin determination [facility] Work Phone: Mean corpuscular hem oglobin determination [facility] Mean corpuscular hem oglobin determination [facility] Mean corpuscular hem oglobin determination [facility] Measurement of renal function [facility] Work Phone: Measurement of renal function [facility] Measurement of renal function [facility] Measurement of renal function [facility] Neutrophil count [facility] Work Phone: Neutrophil count [facility] Neutrophil count [facility] Neutrophil count [facility] Neutrophil percent differential count [facility] Work Phone: Neutrophil percent differential count [facility] Neutrophil percent differential count [facility] Neutrophil percent differential count [facility] Patient Education [facility] Work Phone: Patient referral [facility] Work Phone: Platelets [#/volume] in Blood [facility] Work Phone: Platelets [#/volume] in Blood [facility] Platelets [#/volume] in Blood [facility] Platelets [#/volume] in Blood [facility] Potassium [Moles/vol ume] in Serum or Plasma [facility] Work Phone: Potassium [Moles/vol ume] in Serum or Plasma [facility] Potassium [Moles/vol ume] in Serum or Plasma [facility] Potassium [Moles/vol ume] in Serum or Plasma [facility] Prostate specific an tigen measurement [facility] Prostate specific an tigen measurement [facility] Red blood cell count [facility] Work Phone: Red blood cell count [facility] Red blood cell count [facility] Red blood cell count [facility] Red cell distributio n width determination [facility] Work Phone: Red cell distributio n width determination [facility] Red cell distributio n width determination [facility] Red cell distributio n width determination [facility] Respiratory microbia l culture Respiratory Culture [facility] Sodium [Moles/volume ] in Serum or Plasma [facility] Work Phone: Sodium [Moles/volume ] in Serum or Plasma [facility] Sodium [Moles/volume ] in Serum or Plasma [facility] Sodium [Moles/volume ] in Serum or Plasma [facility] Urea nitrogen [Mass/ volume] in Serum or Plasma [facility] Work Phone: Urea nitrogen [Mass/ volume] in Serum or Plasma [facility] Urea nitrogen [Mass/ volume] in Serum or Plasma [facility] Urea nitrogen [Mass/ volume] in Serum or Plasma [facility] Immunizations Immunization Date Immunization Notes Care Provider [facility] 08-20-2023 influenza, injectabl e, quadrivalent, preservative free Dr. Jayme Yang Work Phone: [facility] 09-17-2022 tetanus toxoid, redu rhiannon diphtheria toxoid, and acellular pertussis vaccine, adsorbed Dr. Jayme Yang Work Phone: [facility] 09-03-[address] Jayme Yang Work Phone: [facility] 08-07-2022 Covid Moderna Bivale nt Booster Dr. Jayme Yang Work Phone: [facility] 07-27-2022 influenza, injectabl e, quadrivalent, preservative free Dr. Jayme Yang Work Phone: [facility] 07-27-2022 influenza, seasonal, injectable Dr. Jayme Yang Work Phone: [facility] 06-21-[address] Jayme Yang Work Phone: [facility] 12-29-2021 Covid (Pfizer) Dr. Jayme eric Work Phone: [facility] 09-20-2021 Covid (Moderna) Dr. Jayme jolley Work Phone: [facility] 08-09-2021 influenza, injectabl e, quadrivalent, preservative free Dr. Jayme Yang Work Phone: [facility] 01-13-2021 Covid (Moderna) Dr. Jayme jolley Work Phone: [facility] 12-16-2020 Covid (Moderna) Dr. Jayme jolley Work Phone: [facility] 07-30-[address] Jayme Yang Work Phone: [facility] 07-29-2018 influenza, injectabl e, quadrivalent, preservative free Dr. Jayme Yang Work Phone: [facility] 07-19-[address] Jayme Yang Work Phone: [facility] 07-30-2017 Seasonal, quadrivale nt, recombinant, injectable influenza vaccine, preservative free Dr. Jayme Yang Work Phone: [facility] 06-30-[address] Jayme Yang Work Phone: [facility] 09-10-2016 pneumococcal conjuga te vaccine, [address] Jayme Yang Work Phone: [facility] 09-08-2015 pneumococcal polysaccharide vaccine, [address] Jayme Yang Work Phone: [facility] 08-12-2013 influenza, injectabl e, quadrivalent, preservative free Dr. Jayme Yang Work Phone: [facility] 09-14-2009 novel influenza-H1N1 -09, preservative-free, injectable Dr. Jayme Yang Work Phone: [facility] Payers Date Payer Category Payer Unknown [id number] 2024 Unknown [id number] 2024 Self-pay [id number] 2023 Private Health Insurance 101 [id number] 2016 Unknown [id number] 2005 Medicare [id number] Unknown [id number] Unknown [id number] Unknown [id number] 2.16.8 [id number] Unknown [id number] 2.16.8 40.1.880675.3.579.2.462 Unknown [id number] 2.16.8 40.1.232756.3.579.2.462 Unknown [id number] 2.16.8 40.1.071667.3.579.2.462 Unknown [id number] 2.16.8 40.1.639306.3.579.2.462 Unknown [id number] 2.16.8 40.1.057121.3.579.2.462 Unknown [id number] 2.16.8 40.1.032161.3.579.2.462 Unknown [id number] 2.16.8 40.1.116543.3.579.2.462 Unknown [id number] 2.16.8 40.1.355110.3.579.2.462 Unknown [id number] 2.16.8 40.1.811243.3.579.2.462 Unknown [id number] 2.16.8 40.1.192716.3.579.2.462 Unknown [id number] 2.16.8 40.1.545211.3.579.2.462 Unknown [id number] 2.16.8 40.1.185478.3.579.2.462 Unknown [id number] 2.16.8 40.1.897125.3.579.2.462 Unknown [id number] 2.16.8 40.1.948843.3.579.2.462 Unknown [id number] 2.16.8 40.1.773982.3.579.2.462 Unknown [id number] 2.16.8 40.1.599579.3.579.2.462 Unknown [id number] 2.16.8 40.1.518400.3.579.2.462 Unknown [id number] 2.16.8 40.1.280427.3.579.2.462 Unknown [id number] 2.16.8 40.1.197153.3.579.2.462 Unknown [id number] 2.16.8 40.1.794558.3.579.2.462 Unknown [id number] 2.16.8 40.1.656799.3.579.2.462 Social History Date Type Detail Facility Start: 12-21-2021 End: 09-20-2023 Tobacco smoking status [facility] Unknown if ever smoked [facility] Start: 06-23-2020 None [facility] Start: 06-23-2020 Alone [facility] Start: 03-24-2020 Cigarettes [facility] Start: 1945 Sex Assigned At Male [facility] Start: 05-27-2024 End: 02-15-2025 Tobacco smoking status IAIS Ex-smoker (finding) [facility] Start: 12-21-2024 End: 01-11-2025 Sex Male (finding) [facility] Medical Equipment Procedure Code Equipment Code [...] MARKERS, FIDUCIA L GOLD FDA Start: 08-07-2023 [id number] FDA Start: 08-07-2023 STENT,URETERAL 6 FR PIG [...] Assessment Result Facility 11-13-2023 Functional status Ambulates [facility] Work Phone: 09-24-2023 Functional status Up ad dong [facility] Work Phone: 09-05-2023 Functional status Ambulates;Stand with Ur inal [facility] Work Phone: 09-04-2023 Functional status [facility]inal [facility] Work Phone: 03-26-2023 Functional status Chair mode [facility] Work Phone: 10-05-2022 Functional status Chair [facility] Work Phone: 12-23-2021 Functional status Ambulates;Chair [facility] Work Phone: Mental Status Date Assessment Result Facility 11-13-2023 Cognitive function Voice/Name [facility] Work Phone: 11-11-2023 Cognitive function Voice/Name [facility] Work Phone: 09-24-2023 Cognitive function Voice/Name [facility] Work Phone: 09-05-2023 Cognitive function Anxious;Uncoo perative;Guarded; Suspicious [facility] Work Phone: 09-04-2023 Cognitive function Anxious;Uncoo perative;Guarded; Suspicious;Resistive to Care [facility] Work Phone: 08-07-2023 Cognitive function Voice/Name [facility] Work Phone: 03-25-2023 Cognitive function Voice/Name [facility] Work Phone: 10-05-2022 Cognitive function Appropriate;Cooperativ e [facility] Work Phone: 10-04-2022 Cognitive function Level Of Cons ciousness Awake;Alert;Appropriate;Follow s Commands [facility] Work Phone: 12-23-2021 Cognitive function Voice/Name [facility] Work Phone: 10-13-2021 Cognitive function Awake;Alert;A ppropriate;Follow s Commands [facility] Work Phone: 08-25-2021 Cognitive function Level Of Cons ciousness Awake;Alert;Appropriate;Follow s Commands [facility] Work Phone: Clinical Notes 10-02-2022 to 04-06-2025 Note Date & Type Note Facility 04-06-2025 Evaluation note Diagnosis Onset Date Resolution Cancer of prostate with intermediate recurrence risk (stage T2b-c or Gleaso acute April 06, 2025 8 :54am [facility] Work Phone: 1(810) 555-365307-08-2025 Evaluation note* Diagnosis Onset Date Resolution Status Admit Date Cancer of prostate with intermediate recurrence risk (stage T2b-c or Gleaso acute April 06, 2025 8:54am Oral thrush acute May 20, 2025 8:49am Asthma chronic May 20, 2 025 8:49am SUPA (obstructive sleep apnea) chroni c May 20, 2025 8:49am Pulmonary hypertension chronic Au 2024 8:49am [facility] Work Phone: [phone]) [phone] Radiology Diagnostic study [facility]05-19-2025 Discharge summary Author Jonathan Lopez [facility] Note Date/Time February 15, 2025 7:08p m [facility] Medical Records Department [address] [place] [address] Emergency Department Summary 02/15/25 MR#: [id number] Acct: [id number] Name: MEGAN GIMENEZ Rep #:[id number] : [...] T2b-c or Liza 7 or PSA 10-20) Heart failure Prostate cancer Sinus drainage HTN (hypertension) Pneumonia Hypokalemia Gout flare Inability to walk Arthralgia of right knee Arthralgia of foot, left Anticoagulant long-term use Effusion, right knee Effusion, left knee Rib pain White coat syndrome without diagnosis of hypertension Fatigue Nonrheumatic aortic (valve) stenosis Atherosclerotic heart disease of [place] coronary artery without angina pectoris Closed head [...] drops 1 drp LEFT EYE DAILY E [facility] 10/04/22 03/20/23 History infliximab 100 mg [...] nontender. Moving all 4 extremities. 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 Dorsi plantarflexion intact. Calves are nontender [...] % (Auto) 65.0 Lymph % (Auto) 22.7 [place] % (Auto) 10.9 H Eos % (Auto) [...] of an acute cardiopulmonary abnormality. Reading Location: [facility] Chest x-ray, 2 views, AP [...] of 91. First-degree AV block with a WA interval of 210. Discharge Plan Triage Chief [...] chest x-ray look good today. Print Language: Romanian Disposition Disposition: Home, Self Care What to do if you have Problems For any increased pain, shortness of breath, bleeding, nausea or vomiting, chestpain, or any unexpected problems, contact your Primary Care Provider. Call [facility] ([phone]) or report to the closest Emergency Room. Call 911 if necessary. 02/15/251907 <Electronically signed by Jonathan Lopez MD> Cosigner Signature (if applicable): CC: Dr. Jayme Yang MD ~ Signed [facility] Work Phone: 1(642) 952-401602-18-2025 Evaluation note* Diagnosis Onset Date Resolution Status [...] fibrillation chron ic November 27, 2024 8:21am [facility] Work Phone: 1(998) 444-303701-07-2025 Evaluation note* Diagnosis Onset Date Resolution Status [...] fibrillation chron ic November 27, 2024 8:21am [facility] Work Phone: 1(610) 108-621802-14-2024 Consult note Author Joelle Barros [facility] November 13, 2023 11:30am Note Date/Time November 13, 2023 11:30am [facility] Medical Records Department [address] [place] [address] Counseling Note - Pharmacy 11/13/23 1129 MR#: [id number] Acct: [id number] Name: MEGAN GIMENEZ Rep #:[id number] : 1945 78 From: Joelle Barros PCP: Dr. Jayme Yang MD Status:ADM I N Y Location: [place] [address] Pharmacy [facility] has performed discharge medication reconciliation [...] understanding of their dischargemedications. Patient counseled by hospital pharmacy technician, Davion. Medications at Discharge Home Medications [...] Signature (if applicable): Date CC: ~ Signed [facility] Work Phone: 1(928) 537-384602-14-2024 Discharge summary Author Boris Bojorquez [facility] November 13, 2023 8:39am Note Date/Time November 13, 2023 8:31am [facility] Medical Records Department [address] [place] [address] Instructions for Home/Discharge Instructions 11/13/23 0831 MR#: [id number] Acct: [id number] Name: MEGAN GIMENEZ Rep #:[id number] : [...] Maldonado; Domenico Ordaz; Nabil Marie; Teja [place] [employer]; Dyan Chavez [employer]UC[employer] TEACHER;Faye Martinez; Laureano Lucero; Js Lee Discharge Orders/Prescriptions [...] by Boris Bojorquez MD>Boris Bojorquez MD CC: TERESE [place]; TERESE Chavez; Maxine Miguel [...] Marie MD; Dyan Oviedo; ADRY Polanco ~ [facility] Work Phone: 1(632) 655-928702-14-2024 Progress note Author Suzie [facility] November 13, 2023 7:46am Note Date/Time November 13, 2023 7:40am [facility] Medical Records Department [address] [place] [address] Progress Note - Cardiology 11/13/23 0735 MR#: [id number] Acct: [id number] Name: MEGAN GIMENEZ Rep #:[id number] : 1945 78 From: Suize Ashton MD PCP: Dr. Jayme Yang MD Status:ADM I N Location: [place] [address] Subjective Subjective Patient was sleeping comfortably with [...] Physician: Jayme Yang Performed By: Terri Butler, NATANCS, RVT Physical Exam Narrative Patient resting comfortably [...] andEliquis long-term. (5) Atherosclerotic heart disease of [place] coronary artery without angina pectoris: QUALIFIERS: [place] vs. transplanted heart: [place] heart QualifiedCode(s): I25.10 - Atherosclerotic heart disease of [place] coronary artery without angina pectoris PLAN: The [...] tolerating. The patient should follow-up in the [place] [facility] office with one of the advanced practitioners in approximately 2 weeks. We will reevaluate his response to the anti-ischemic medical regimen and his blood pressure control at that time. Charges/Coding Visit Charges Inpatient E&M: 19743 Subs Hosp L2 11/13/23 0746 <Electronically signed by Suzie Ashton MD> Cosigner Signature (if applicable): CC: ~ Signed [facility] Work Phone: 1(766) 752-406002-13-2024 Progress note Author Js Lee [facility] November 12, 2023 3:36pm Note Date/Time November 12, 2023 12:18pm [facility] Medical Records Department [address] [place] [address] Progress Note - Hospitalist 11/12/23 1217 MR#: [id number] Acct: [id number] Name: MEGAN GIMENEZ Rep #:[id number] : 1945 78 From: Js valera DO PCP: Dr. 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 [...] 35 minutes. Charges/Coding Visit Charges Inpatient E&M: 76595 Subs Hosp L2 11/12/231531 <Electronically signed by [...] to change patient to inpatient status. 11/12/23 153<Electronically signed by Js Lee DO> Cosigner Signature (if applicable): cc: ~* Signed [facility] Work Phone: 1(658) 693-236702-13-2024 Consult note Author Suzie Ashton [facility] November 12, 2023 8:14am Note Date/Time November 12, 2023 7:54am [facility] Medical Records Department [facility] [place] [address] Consultation - Cardiology 11/12/23 0754 MR#: [id number] Acct: [id number] Name: MEGAN GIMENEZ Rep #:[id number] : 1945 78 From: Suzie Ashton MD PCP: Dr. Jayme Yang MD Status:ADM I NO Location: [place] [address] Assessment & Plan Assessment/Plan (1) NSTEMI, initial [...] out an old inferior and old anterior HI. Thepatient has a history of paroxysmal atrial [...] given situation would be fraught with complications. [facility] Medical History Abnormal stress test Acute bronchitis with bronchospasm Acute respiratory insufficiency Anticoagulant long-term use Anxiety Aortic stenosis Arthralgia of foot, left Arthralgia of right knee Arthritis Asthma Asymptomatic hypertensive urgency Atherosclerotic heart disease of [place] coronary artery without angina pectoris Atrial fibrillation with RVR Back pain BiPAP (biphasic positive airway pressure) dependence Bronchitis Cancer of prostate with intermediate recurrence risk (stage T2b-c or Enloe 7 or PSA 10-20) Cardiology follow-up encounter [...] 20% Risk Charges/Coding Visit Charges Inpatient E&M: 17121 Init Hosp L3 Objective Data Vital Signs: [...] % (Auto) 52.3, Lymph % (Auto) 32.6, [place] % (Auto) 11.6 H, Eos % (Auto) [...] % (Auto) 52.3, Lymph % (Auto) 32.6, [place] % (Auto) 11.6 H, Eos % (Auto) [...] Nabil Marie MD; Dyan Oviedo; ADRY Sevilla~ [facility] Work Phone: 1([phone]) 758-664702-13-2024 History and physical note Author Laureano [facility] November 12, 2023 6:45am Note Date/Time November 11, 2023 10:32pm [facility] Medical Records Department [address] [place] [address] H&P Exam - Hospitalist 11/11/234 MR#: [id number] Acct: [id number] Name: MEGAN GIMENEZ Rep #:[id number] : 1945 78 From: Laureano Hampton DO PCP: Dr. Jayme Yang MD Status:ADM I NO Location: [place] [address] HPI - General General Date of Admission: [...] on December 22, 2021 who presents to [facility] ER complaining of chest pain. Mr. [...] expected to be greater than 48 hours. [facility] Medical History (Updated 11/12/23 @ 03:[address] Laureano Lucero, DO) Abnormal stress test Acute bronchitis with bronchospasm Acute respiratory insufficiency Anticoagulant long-term use Anxiety Aortic stenosis Arthralgia of foot, left Arthralgia of right knee Arthritis Asthma Asymptomatic hypertensive urgency Atherosclerotic heart disease of [place] coronary artery without angina pectoris Atrial fibrillation [...] % (Auto) 52.3, Lymph % (Auto) 32.6, [place] % (Auto) 11.6 H, Eos % (Auto) [...] mouth swelling. Finally, we will consult the community relations director on-call to see this patient on-rounds in the AM for further recommendations regarding [facility] this admission with help appreciated in [...] 55 minutes. Charges/Coding Visit Charges Inpatient E&M: 77375 Init Hosp L2 11/12/23 0645 <Electronically signed by Laureano Lucero DO> Cosigner Signature (if applicable): CC: Dr. Laureano Lucero DO; Dr. Jayme Yang MD~ Signed [facility] Work Phone: 1(126) 818-440402-13-2024 Discharge summary Author Ana Maria Barnhart [facility] November 11, 2023 10:11pm Note Date/Time November 11, 2023 8:15pm [facility] Medical Records Department [address] [place] [address] Emergency Department Summary 11/11/23 MR#: [id number] Acct: [id number] Name: MEGAN GIMENEZ Rep #:[id number] : [...] diabetes high blood pressure and high cholesterol. [facility] Medical History (Updated 11/11/23 @ 22:[address] Ana Maria Barnhart MD) Abnormal stress test Acute bronchitis with bronchospasm Acute respiratory insufficiency Anticoagulant long-term use Anxiety Aortic stenosis Arthralgia of foot, left Arthralgia of right knee Arthritis Asthma Asymptomatic hypertensive urgency Atherosclerotic heart disease of [place] coronary artery without angina pectoris Atrial fibrillation with RVR Back pain BiPAP (biphasic positive airway pressure) dependence Bronchitis Cancer of prostate with intermediate recurrence risk (stage T2b-c or Enloe 7 or PSA 10-20) Cardiology follow-up encounter [...] around 70% with the mid RCA occluded, FABRIC NORMALIZER Conclusion and recommendation; This patient is allergic to aspirin and had significant coronary atherosclerosis We will continue medical treatment. He has a paroxysmal atrial fibrillation will resume Eliquis in addition to rest of his cardiac medication He will follow-up with his primary community relations director Dr. [facility]. Patient's CBC shows [...] % (Auto) 52.3 Lymph % (Auto) 32.6 [place] % (Auto) 11.6 H Eos % (Auto) [...] the rest of the EKG looks normal. WA interval is slightly long showing some slight first-degree AV block. QRS duration and QTc are not showing any significant abnormality. Discharge Plan Dx/Rx/DC Orders Clinical Impression: Diabetes, History of coronary artery disease, Chest pain, Dyspnea, Nausea & vomiting Disposition Disposition: Acute Care Hospital [facility] What to do if you have Problems For any increased pain, shortness of breath, bleeding, nausea or vomiting, chestpain, or any unexpected problems, contact your Primary Care Provider. Call [facility] ([phone]) or report to the closest Emergency Room. Call 911 if necessary. 11/11/232210 <Electronically signed by Ana Maria Barnhart MD> Cosigner Signature (if applicable): CC: Dr. Jayme Yang MD ~ Signed [facility] Work Phone: 1(857) 124-935602-12-2024 Discharge summary Author Ana Maria Barnhart [facility] November 11, 2023 10:11pm Note Date/Time November 11, 2023 8:15pm [facility] Medical Records Department [address] [place] [address] Emergency Department Summary 11/11/23 MR#: [id number] Acct: [id number] Name: MEGAN GIMENEZ Rep #:[id number] : [...] diabetes high blood pressure and high cholesterol. [facility] Medical History (Updated 11/11/23 @ 22:[address] Ana Maria Barnhart MD) Abnormal stress test Acute bronchitis with bronchospasm Acute respiratory insufficiency Anticoagulant long-term use Anxiety Aortic stenosis Arthralgia of foot, left Arthralgia of right knee Arthritis Asthma Asymptomatic hypertensive urgency Atherosclerotic heart disease of [place] coronary artery without angina pectoris Atrial fibrillation [...] around 70% with the mid RCA occluded, FABRIC NORMALIZER Conclusion and recommendation; This patient is allergic to aspirin and had significant coronary atherosclerosis We will continue medical treatment. He has a paroxysmal atrial fibrillation will resume Eliquis in addition to rest of his cardiac medication He will follow-up with his primary community relations director Dr. Lino/[facility]. Patient's CBC shows [...] % (Auto) 52.3 Lymph % (Auto) 32.6 [place] % (Auto) 11.6 H Eos % (Auto) [...] the rest of the EKG looks normal. WA interval is slightly long showing some slight first-degree AV block. QRS duration and QTc are not showing any significant abnormality. Discharge Plan Dx/Rx/DC Orders Clinical Impression: Diabetes, History of coronary artery disease, Chest pain, Dyspnea, Nausea & vomiting Disposition Disposition: [facility] Care [facility] What to do if you have Problems For any increased pain, shortness of breath, bleeding, nausea or vomiting, chestpain, or any unexpected problems, contact your Primary Care Provider. Call [facility] ([phone]) or report to the closest Emergency Room. Call 911 if necessary. 11/11/232210 <Electronically signed by Ana Maria Barnhart MD> Cosigner Signature (if applicable): CC: Dr. Jayme Yang MD ~ Signed [facility] Work Phone: 1(304) 776-412312-26-2023 Discharge summary Author Boris Bojorquez [facility] September 24, 2023 8:39am Note Date/Time September 24, 2023 8:36am [facility] Medical Records Department [address] [place] [address] Instructions for Home/Discharge Instructions 09/24/23 0835 MR#: [id number] Acct: [id number] Name: MEGAN GIMENEZ Rep #:[id number] : [...] MD>Boris Bojorquez MD CC: Dr. Drake Mason, ; Dr. Jayme Yang MD ~ Signed [facility] Work Phone: 1(742) 265-547312-25-2023 Progress note Author Boris Bojorquez [facility] September 23, 2023 8:35am Note Date/Time September 23, 2023 8:35am [facility] Medical Records Department [address] [place] [address] Progress Note - Hospitalist 09/23/23 0833 MR#: [id number] Acct: [id number] Name: MEGAN GIMENEZ Rep #:[id number] : 1945 78 From: Boris matos MD PCP: Dr. Jayme Yang MD Status:ADM I N Location: [facility] CN936-6 Subjective Subjective Maintaining his oxygen 5 L, [...] DVT: Eliquis Charges/Coding Visit Charges Inpatient E&M: 87246 Subs Hosp L2 09/23/23 8269 <Electronically signed by Boris Bojorquez MD> Cosigner Signature (if applicable): CC: ~ Signed [facility] Work Phone: 1(262) 706-867912-24-2023 Progress note Author Boris Bojorquez [facility] September 22, 2023 8:44am Note Date/Time September 22, 2023 8:44am [facility] Medical Records Department [address] [facility] [place] [address] Progress Note - Hospitalist 09/22/23 0839 MR#: [id number] Acct: [id number] Name: MEGAN GIMENEZ Rep #:[id number] : 1945 78 From: Boris matos MD PCP: Dr. Jayme Yang MD Status:ADM I NO Location: [address] Subjective Subjective Need increased oxygen overnight, repeat [...] Neut % (Auto) 58.2, Lymph % (Auto) 25.0,[place] % (Auto) 12.9 H, Eos % (Auto) [...] DVT: Eliquis Charges/Coding Visit Charges Inpatient E&M: 28634 Subs Hosp L2 09/22/23 0844 <Electronically signed by Boris Bojorquez MD> Cosigner Signature (if applicable): CC: ~ Signed [facility] Work Phone: 1(851) 873-755612-23-2023 Progress note Author Boris Bojorquez [facility] September 21, 2023 9:34am Note Date/Time September 21, 2023 9:31am [facility] Medical Records Department [address] [place] [address] Progress Note - Hospitalist 09/21/23926 MR#: [id number] Acct: [id number] Name: MEGAN GIMENEZ Rep #:[id number] : 1945 78 From: Boris matos MD PCP: Dr. Jayme Yang MD Status:ADM I NO Location: MS3 FB073-9 Subjective Subjective Doing well, breathing a bit [...] Neut % (Auto) 58.3, Lymph % (Auto) 25.6,[place] % (Auto) 13.3 H, Eos % (Auto) [...] DVT: Eliquis Charges/Coding Visit Charges Inpatient E&M: 41176 Subs Hosp L2 09/21/23 0934 <Electronically signed by Boris Bojorquez MD> Cosigner Signature (if applicable): CC: ~ Signed [facility] Work Phone: 1(335) 796-494612-22-2023 History and physical note Author Drake Mason [facility] September 20, 2023 5:36pm Note Date/Time September 20, 2023 5:36pm [facility] Medical Records Department [address] [place] [address] H&P Exam - Hospitalist 09/20/23 1728 MR#: [id number] Acct: [id number] Name: MEGAN GIMENEZ Rep #:[id number] : 1945 78 From: Drake Mason DO PCP: Dr. Jayme Yang MD Status:ADM I NO Location: MT3 FG231-9 HPI - General General Date of Admission: 09/20/23 Date of Service: 09/20/23 Chief Complaint: Cough, generalized weakness HPI Narrative MEGAN GIMENEZ, is a 78 M who presents to the emergency room at [facility], he states he has been very [...] patient's weakness, he will be admitted to [place] [address] for community-acquired pneumonia and generalized weakness, he will be seen by PT and OT, he will be placed on Levaquin for the pneumonia. [facility] Medical History (Updated 09/20/23 @ 16:08 by Khalida Jones) Abnormal stress test Acute bronchitis with bronchospasm Acute respiratory insufficiency Ambulates with cane Anxiety Aortic stenosis Arthritis Asthma Asymptomatic hypertensive urgency Atherosclerotic heart disease of [place] coronary artery without angina pectoris Atrial fibrillation with RVR Back pain BiPAP (biphasic positive airway pressure) dependence Bronchitis CAD in [place] artery Cancer Cardiology follow-up encounter Chronic anticoagulation [...] 55 minutes Charges/Coding Visit Charges Inpatient E&M: 35344 Init Hosp L2 09/20/23 6855 <Electronically signed by Drake Mason DO> Cosigner Signature (if applicable): CC: Dr. Drake Mason, DO; Dr. Jayme Yang MD~ Signed [facility] Work Phone: 1(303) 992-873212-22-2023 Discharge summary Author Jonathan Lopez [facility] September 20, 2023 3:28pm Note Date/Time September 20, 2023 1:23pm [facility] Medical Records Department [address] [place] [address] Emergency Department Summary 09/20/23 MR#: [id number] Acct: [id number] Name: MEGAN GIMENEZ Rep #:[id number] : 1945 78 From: Jonathan Lopez MD PCP: Dr. Jayme Yang MD Status:ADM I NO [facility] HPI - URI History of Present [...] Asymptomatic hypertensive urgency Atherosclerotic heart disease of [place] coronary artery without angina pectoris Atrial fibrillation with RVR Back pain Bronchitis CAD in [place] artery Cancer Cardiology follow-up encounter Chronic anticoagulation [...] QHS diabetes 01/22/18 [History Last Taken 03/21/23] wvdjjzvs-nw-qbgru 300 mcg-K 60 mcg-lycop 600 mcg-lutein 300 [...] your Primary Care Provider. Call [facility] ([phone]) or report to the closest Emergency Room. Call 911 if necessary. 09/20/23 1528 <Electronically signed by Jonathan Lopez MD> Cosigner Signature (if applicable): CC: Dr. Jayme Yang MD ~ Signed [facility] Work Phone: 1(880) 940-650412-22-2023 Discharge summary Author Jonathan Lopez [facility] September 20, 2023 3:28pm Note Date/Time September 20, 2023 1:23[facility] Medical Records Department [address] [place] [address] Emergency Department Summary 09/20/23 MR#: [id number] Acct: [id number] Name: MEGAN GIMENEZ Rep #:[id number] : 1945 78 From: Jonathan Lopez MD PCP: Dr. Jayme Yang MD Status:ADM I NO Location: MS3 GF567-3 HPI HPI - URI History of Present [...] Asymptomatic hypertensive urgency Atherosclerotic heart disease of [place] coronary artery without angina pectoris Atrial fibrillation with RVR Back pain Bronchitis CAD in [place] artery Cancer Cardiology follow-up encounter Chronic anticoagulation [...] QHS diabetes 01/22/18 [History Last Taken 03/21/23] pljwvqab-mc-sjpkh 300 mcg-K 60 mcg-lycop 600 mcg-lutein 300 [...] mg PO BID BLOOD PRESSURE #90 tabs 10/26/23 [Rx Last Taken 08/07/23] montelukast 10 mg [...] your Primary Care Provider. Call [facility] ([phone]) or report to the closest Emergency Room. Call 911 if necessary. 09/20/23 1528 <Electronically signed by Jonathan Lopez MD> Cosigner Signature (if applicable): CC: Dr. Jayme Yang MD ~ Signed [facility] Work Phone: 1(529) 978-941512-07-2023 Discharge summary Author Laureano Lima [facility] September 05, 2023 9:48am Note Date/Time September 05, 2023 9 :43am [facility] Medical Records Department [address] [place] [address] Discharge Summary 09/05/23 0943 MR#: [id number] Acct: [id number] Name: MEGAN GIMENEZ Rep #:[id number] : 1945 78 From: Laureano Lima MD PCP: Dr. Jayme Yang MD Status:ADM I N [facility] Prov[facility] Date of Admission: 09/04/23 Date of [...] tablet 2 mg PO QHS diabetes 01/22/18 pcwylvtc-pf-mznbn 300 mcg-K 60 mcg-lycop 600 mcg-lutein 300 [...] (Auto) 77.9 H, Lymph % (Auto) 16.7 L,[place] % (Auto) 4.6, Eos % (Auto) 0.0, [...] Self Care Charges/Coding Visit Charges Inpatient E&M: 47652 Disch Hosp >30min 09/05/23 0948 <Electronically signed by Laureano Lima MD> Cosigner Signature (if applicable): CC: Dr. Laureano Lima MD; Dr. Jayme Yang MD~ Signed [facility] Work Phone: 1(791) 464-943912-07-2023 Progress note Author Laureano Lima [facility] September 05, 2023 9:43am Note Date/Time September 05, 2023 9 :43am [facility] Medical Records Department [address] [facility] [place] [address] Progress Note - Hospitalist 09/05/23 0942 MR#: [id number] Acct: [id number] Name: MEGAN GIMENEZ Rep #:[id number] : [...] (Auto) 77.9 H, Lymph % (Auto) 16.7 L,[place] % (Auto) 4.6, Eos % (Auto) 0.0, [...] 40 Minutes Charges/Coding Visit Charges Inpatient E&M: 35460 Subs Hosp L2 09/05/23 0943 <Electronically signed by Laureano Lima MD> Cosigner Signature (if applicable): CC: ~ Signed [facility] Work Phone: 1(455) 849-841212-06-2023 Progress note Author Laureano Lima [facility] September 04, 2023 9:17am Note Date/Time September 04, 2023 7 :48am [facility] Medical Records Department [address] [place] [address] Progress Note - Hospitalist 09/04/23 0747 MR#: [id number] Acct: [id number] Name: MEGAN GIMENEZ Rep #:[id number] : [...] % (Auto) 60.4, Lymph % (Auto) 25.6, [place] % (Auto) 11.9 H, Eos % (Auto) [...] 18 minutes. Charges/Coding Visit Charges Inpatient E&M: 18209 Subs Hosp L3 Procedures Hospitalists Procedures: 41226 Advncd Care Plan 30 Min 09/04/23 0917 <Electronically signed by Laureano Lima MD> Cosigner Signature (if applicable): CC: ~ Signed [facility] Work Phone: 1(325) 794-726212-06-2023 History and physical note Author Laureano Jennings [facility] September 04, 2023 5:36am Note Date/Time September 04, 2023 2 :36am [facility] Medical Records Department [address] [place] [address] H&P Exam - Hospitalist 09/04/23 0158 MR#: [id number] Acct: [id number] Name: MEGAN GIMENEZ Rep #:[id number] : [...] planned for next week who presents to [facility] ER complaining of shortness of breath, [...] expected to be greater than 48 hours. [facility] Medical History (Updated 09/04/23 @ 02:[address] Laureano Lucero, ) Abnormal stress test Acute bronchitis with bronchospasm Acute respiratory insufficiency Ambulates with cane Anxiety Aortic stenosis Arthritis Asthma Asymptomatic hypertensive urgency Atherosclerotic heart disease of [place] coronary artery without angina pectoris Atrial fibrillation with RVR Back pain Bronchitis CAD in [place] artery Cancer Cardiology follow-up encounter Chronic anticoagulation [...] QHS diabetes 01/22/18 [History Last Taken 03/21/23] nconsrdu-cl-advsr 300 mcg-K 60 mcg-lycop 600 mcg-lutein 300 [...] % (Auto) 60.4, Lymph % (Auto) 25.6, [place] % (Auto) 11.9 H, Eos % (Auto) [...] 75 minutes. Charges/Coding Visit Charges Inpatient E&M: 55384 Init Hosp L3 09/04/23 0536 <Electronically signed by Laureano Lucero DO> Cosigner Signature (if applicable): CC: Dr. Laureano Lucero DO; Dr. Jayme Yang MD~ Signed [facility] Work Phone: 1(145) 408-964512-06-2023 History and physical note Author Laureano Jennings [facility] September 04, 2023 5:36am Note Date/Time September 04, 2023 2 :36am [facility] Medical Records Department [address] [place] [address] H&P Exam - Hospitalist 09/04/23 0158 MR#: [id number] Acct: [id number] Name: MEGAN GIMENEZ Rep #:[id number] : [...] planned for next week who presents to [facility] ER complaining of shortness of breath, [...] expected to be greater than 48 hours. [facility] Medical History (Updated 09/04/23 @ 02:[address] Laureano Lucero DO) Abnormal stress test Acute bronchitis with bronchospasm Acute respiratory insufficiency Ambulates with cane Anxiety Aortic stenosis Arthritis Asthma Asymptomatic hypertensive urgency Atherosclerotic heart disease of [place] coronary artery without angina pectoris Atrial fibrillation with RVR Back pain Bronchitis CAD in [place] artery Cancer Cardiology follow-up encounter Chronic anticoagulation [...] QHS diabetes 01/22/18 [History Last Taken 03/21/23] ndxlrygh-cr-anazv 300 mcg-K 60 mcg-lycop 600 mcg-lutein 300 [...] % (Auto) 60.4, Lymph % (Auto) 25.6, [place] % (Auto) 11.9 H, Eos % (Auto) [...] 75 minutes. Charges/Coding Visit Charges Inpatient E&M: 12932 Init Hosp L3 09/04/23 0536 <Electronically signed by Laureano Lucero DO> Cosigner Signature (if applicable): CC: Dr. Laureano Lucero DO; Dr. Jayme Yang MD~ Signed [facility] Work Phone: 1(524) 271-533512-06-2023 Discharge summary Author Mauricio Soto [facility] September 04, 2023 2:09am Note Date/Time September 04, 2023 2 :00am [facility] Medical Records Department [address] [place] [address] Emergency Department Summary 09/04/23 MR#: [id number] Acct: [id number] Name: MEGAN GIMENEZ Rep #:[id number] : [...] he comes into the ER for evaluation. [facility] Medical History Abnormal stress test Acute bronchitis with bronchospasm Acute respiratory insufficiency Ambulates with cane Anxiety Aortic stenosis Arthritis Asthma Asymptomatic hypertensive urgency Atherosclerotic heart disease of [place] coronary artery without angina pectoris Atrial fibrillation with RVR Back pain Bronchitis CAD in [place] artery Cancer Cardiology follow-up encounter Chronic anticoagulation [...] QHS diabetes 01/22/18 [History Last Taken 03/21/23] pcwqhadv-jn-ldgvx 300 mcg-K 60 mcg-lycop 600 mcg-lutein 300 [...] % (Auto) 60.4 Lymph % (Auto) 25.6 [place] % (Auto) 11.9 H Eos % (Auto) [...] Prostate cancer Disposition Disposition: Acute Care Hospital [facility] What to do if you have Problems For any increased pain, shortness of breath, bleeding, nausea or vomiting, chestpain, or any unexpected problems, contact your Primary Care Provider. Call [facility] ([phone]) or report to the closest Emergency Room. Call 911 if necessary. 09/04/23 0209 <Electronically signed by Mauricio Soto DO> Cosigner Signature (if applicable): CC: Dr. Jayme Yang MD ~ Signed [facility] Work Phone: 1([phone]) 374-822211-08-2023 Discharge summary Author Surinder Larson [facility] August 07, 2023 10:19am Note Date/Time August 07, 2023 1 0:19am [facility] Medical Records Department [address] [place] [address] Instructions for Home/Discharge Instructions 08/07/23 1019 MR#: [id number] Acct: [id number] Name: MEGAN GIMENEZ Rep #:[id number] : [...] Up With: Surinder Larson MD When: Call [phone] for an appointment Test Results: Test results [...] PO BID Qty: 180 3RF Patient Comments: 11 PM DOSE WILL BE LAST DOSE amlodipine [...] CC: Dr. Jayme Yang MD ~ Signed [facility] Work Phone: 1(383) 275-278311-08-2023 History and physical note Author Surinder Marsha [facility] August 07, 2023 10:19am Note Date/Time August 07, 2023 1 0:19am [facility] Medical Records Department [address] [place] [address] History & Physical Exam 08/07/23 1018 MR#: [id number] Acct: [id number] Name: MEGAN GIMENEZ Rep #:[id number] : 1945 78 From: Surinder Larson MD PCP: Dr. Jayme Yang MD Status:REG S DC Location: [place] [address] HPI - General General Date of Service: 08/07/23 Chief Complaint: Prostate cancer HPI Narrative MEGAN GIMENEZ, is a 78 M who presents for placement of gold markers and spacer gel [facility] Medical History (Updated 07/30/23 @ 08:49 by Bailey Choi) Abnormal stress test Acute bronchitis with bronchospasm Acute respiratory insufficiency Ambulates with cane Anxiety Aortic stenosis Arthritis Asthma Asymptomatic hypertensive urgency Atherosclerotic heart disease of [place] coronary artery without angina pectoris Atrial fibrillation with RVR Back pain Bronchitis CAD in [place] artery Cancer Cardiology follow-up encounter Chronic anticoagulation [...] QHS diabetes 01/22/18 [History Last Taken 03/21/23] pwkiytka-ih-nytgw 300 mcg-K 60 mcg-lycop 600 mcg-lutein 300 [...] TO Verified 08/07/23 08:54 URINATE Family History (Reviewed 05/24/23 @ 10:29 by Dyan Chavez [employer], [employer]-C) Mother Heart disease Diabetes Father Heart disease [...] cystoscopy Hx of surgical procedure Social History (Reviewed 05/24/23 @ 10:29 by Dyan Chavez [employer], [employer]-C) Smoking Status: Former smoker how long ago [...] H 08/07/23 1019 <Electronically signed by Surinder Larosn MD> Cosigner Signature (if applicable): CC: Dr. Surinder Larson MD; Dr. Jayme Yang MD~ Signed [facility] Work Phone: 1(726) 728-329311-08-2023 Procedure [facility] 03-26-[address] Bojorquez [facility] March 26, 2023 12:00pm Note Date/Time March 26, 2023 11:4 8am [facility] Medical Records Department [address] [place] [address] Discharge Summary 03/26/23 1145 MR#: [id number] Acct: [id number] Name: MEGAN GIMENEZ Rep #:[id number] : 1945 77 From: Boris matso MD PCP: Dr. Jayme Yang MD Status:ADM I N Location: [place] [address] Providers Date of Admission: 03/21/23 Primary Care Physician: Dr. Jayme Yang MD Reason For Visit: PNEUMONIA Diagnosis Discharge Diagnosis (1) Pneumonia: Status: Acute Code(s): J18.9 - Pneumonia, unspecified organism (2) HTN (hypertension): Status: Chronic Code(s): I10 - Essential (primary) hypertension Medications at Discharge Home Medications glimepiride 2 mg tablet 2 mg PO QHS diabetes 01/22/18 yprfsjsl-pe-jnrwg 300 mcg-K 60 mcg-lycop 600 mcg-lutein 300 [...] [facility] will [facility] on 5 more [...] 76.0 H, Lymph % (Auto) 16.7 L, [place] % (Auto) 6.8, Eos % (Auto) 0.0, [...] Self Care Charges/Coding Visit Charges Inpatient E&M: 44898 Disch Hosp >30min 03/26/23 1200 <Electronically signed by Boris Bojorquez MD> Cosigner Signature (if applicable): CC: Dr. Boris Bojorquez MD; Dr. Jayme Yang MD~ Signed [facility] Work Phone: 1([phone]) 472-880506-27-[address] Bojorquez [facility] March 26, 2023 9:31am Note Date/Time March 26, 2023 9:27 am [facility] Medical Records Department [address] [place] [address] Instructions for Home/Discharge Instructions 03/26/23 0918 MR#: [id number] Acct: [id number] Name: MEGAN GIMENEZ Rep #:[id number] : [...] MD; Dr. Jayme Yang MD ~ Signed [facility] Work Phone: 1(216) 905-671006-26-[address] Bojorquez [facility] March 25, 2023 12:38pm Note Date/Time March 25, 2023 12:3 8pm [facility] Medical Records Department [address] [place] [address] Progress Note - Hospitalist 03/25/23 1229 MR#: [id number] Acct: [id number] Name: MEGAN GIMENEZ Rep #:[id number] : 1945 77 From: Boris matos MD PCP: Dr. Jayme Yang MD Status:ADM I N Location: [place] [address] Subjective Subjective Still with significant productive sputum, [...] DVT: Eliquis Charges/Coding Visit Charges Inpatient E&M: 92212 Subs Hosp L2 03/25/23 1238 <Electronically signed by Boris Bojorquez MD> Cosigner Signature (if applicable): CC: ~ Signed [facility] Work Phone: 1(108) 213-307906-25-[address] Bojorquez [facility] March 24, 2023 9:49am Note Date/Time March 24, 2023 9:49 am [facility] Medical Records Department [address] [place] [address] Progress Note - Hospitalist 03/24/23 0946 MR#: [id number] Acct: [id number] Name: MEGAN GIMENEZ Rep #:[id number] : 1945 77 From: Boris matos MD PCP: Dr. Jayme Yang MD Status:ADM I N Location: [place] [address]-1 Subjective Subjective Doing well, had to go [...] DVT: Eliquis Charges/Coding Visit Charges Inpatient E&M: 32505 Subs Hosp L2 03/24/23 0949 <Electronically signed by Boris Bojorquez MD> Cosigner Signature (if applicable): CC: ~ Signed [facility] Work Phone: 1(403) 661-158606-24-[address] Bojorquez [facility] March 23, 2023 9:03am Note Date/Time March 23, 2023 9:03 am [facility] Medical Records Department [address] [place] [address] Progress Note - Hospitalist 03/23/23 0902 MR#: [id number] Acct: [id number] Name: MEGAN GIMENEZ Rep #:[id number] : 1945 77 From: Boris matos MD PCP: Dr. Jayme Yang MD Status:ADM I N Location: [place] [address] Subjective Subjective Doing well, breathing little bit [...] (Auto) 73.5 H, Lymph % (Auto) 17.5 L,[place] % (Auto) 7.9, Eos % (Auto) 0.1, [...] DVT: Eliquis Charges/Coding Visit Charges Inpatient E&M: 45143 Subs Hosp L2 03/23/23902 <Electronically signed by Boris Bojorquez MD> Cosigner Signature (if applicable): CC: ~ Signed [facility] Work Phone: 1(959) 663-351606-23-[address] Bojorquez [facility] March 22, 2023 9:20am Note Date/Time March 22, 2023 9:14 am [facility] Medical Records Department [address] [place] [address] Progress Note - Hospitalist 03/22/23909 MR#: [id number] Acct: [id number] Name: MEGAN GIMENEZ Rep #:[id number] : 1945 77 From: Boris matos MD PCP: Dr. Jayme Yang MD Status:ADM I N Location: [place] [address] Subjective Subjective Doing little bit better, normally [...] 86.9 H, Lymph % (Auto) 8.5 L, [place] % (Auto) 4.0, Eos % (Auto) 0.0, [...] 73.1 H, Lymph % (Auto) 17.6 L, [place] % (Auto) 8.4, Eos % (Auto) 0.1, [...] Signed: Yong Em MD at 17:49 EDT Reading Location ID and State: [facility] / [place] , Service support , Chest X-Ray 03/21/23 18:40 IMPRESSION: No [...] DVT: Eliquis Charges/Coding Visit Charges Inpatient E&M: 46533 Subs Hosp L2 03/22/23 0920 <Electronically signed by Boris Bojorquez MD> Cosigner Signature (if applicable): CC: ~ Signed [facility] Work Phone: 1(952) 112-824106-23-[address] Ferreira [facility] March 22, 2023 5:27am Note Date/Time March 21, 2023 11:5 8pm [facility] Medical Records Department [address] [place] [address] Pharmacokinetic/Renal -Consult 03/21/23 9417 MR#: [id number] Acct: [id number] Name: MEGAN GIMENEZ Rep #:[id number] : 1945 77 From: Rico Stone PCP: Dr. Jayme Yang MD Status:ADM I N Y Location: [place] [address] Consult Pharmacy has been consulted to manage [...] [date and time ordered]: 03/23/23 @1100 03/21/23 1915 <Electronically signed by Rico wesley > Date _ Rico Stone 03/22/23 5534 <Electronically signed by Pedro butler MD> Cosigner Signature (if applicable): Date Pedro Ferreira MD CC: ~ Signed [facility] Work Phone: 1(830) 695-443106-23-[address] Sullivan [facility] March 22, 2023 12:32am Note Date/Time March 21, 2023 5:40 pm [facility] Medical Records Department [address] [place] [address] Emergency Department Summary 03/21/23 MR#: [id number] Acct: [id number] Name: MEGAN GIMENEZ Rep #:[id number] : 1945 77 From: James Rocha PCP: Dr. Jyame Yang MD Status:ADM I N Location: [place] [address] HPI History of Present Illness Chief Complaint: Shortness of Breath [facility] Medical History Abnormal stress test Acute bronchitis with bronchospasm Acute respiratory insufficiency Ambulates with cane Aortic stenosis Arthritis Asthma Asymptomatic hypertensive urgency Atherosclerotic heart disease of [place] coronary artery without angina pectoris Atrial fibrillation with RVR Back pain Bronchitis CAD in [place] artery Cardiology follow-up encounter Chronic anticoagulation Closed [...] QHS diabetes 01/22/18 [History Last Taken 03/21/23] ilicciuy-dcv-xpyhw acid 300 mcg-lycopene 600 mcg-lutein 300 mcg [...] 86.9 H Lymph % (Auto) 8.5 L [place] % (Auto) 4.0 Eos % (Auto) 0.0 [...] Discharge Plan Disposition Disposition: Acute Care Hospital [facility] Discharge Date/Time: 03/21/23 22:20 What to do if you have Problems For any increased pain, shortness of breath, bleeding, nausea or vomiting, chest pain, or any unexpected problems, contact your Primary Care Provider. Call [facility] ([phone]) or report to the closest Emergency Room. Call 911 if necessary. 03/22/2331 <Electronically signed by James Sullivan DO> Cosigner Signature (if applicable): CC: Dr. Jayme Yang MD ~ Signed [facility] Work Phone: 1(325) 172-535306-22-2023 History and physical note Author Dr. Ferreira [facility] March 21, 2023 9:30pm Note Date/Time March 21, 2023 8:25 pm [facility] Medical Records Department [address] [place] [address] H&P Exam - Hospitalist 03/21/232024 MR#: [id number] Acct: [id number] Name: MEGAN GIMENEZ Rep #:[id number] : [...] for patient to stay at the hospital. [facility] Medical History Abnormal stress test Acute bronchitis with bronchospasm Acute respiratory insufficiency Ambulates with cane Aortic stenosis Arthritis Asthma Asymptomatic hypertensive urgency Atherosclerotic heart disease of [place] coronary artery without angina pectoris Atrial fibrillation with RVR Back pain Bronchitis CAD in [place] artery Cardiology follow-up encounter Chronic anticoagulation Closed [...] QHS diabetes 01/22/18 [History Last Taken 10/03/22] opuwsoby-pah-hfaeu acid 300 mcg-lycopene 600 mcg-lutein 300 mcg [...] 86.9 H, Lymph % (Auto) 8.5 L, [place] % (Auto) 4.0, Eos % (Auto) 0.0, [...] A-fib continued. Charges/Coding Visit Charges Inpatient E&M: 26698 Init Hosp L3 03/21/232129 <Electronically signed by Pedro Ferreira MD> Cosigner Signature (if applicable): CC: Dr. Pedro Ferreira MD; Dr. Jayme Yang MD~ Signed [facility] Work Phone: 1(873) 798-421401-03-[address] Castro [facility] October 02, 2022 6:02pm Note Date/Time October 02, 2022 5: 05pm [facility] Medical Records Department [address] [place] [address] Consultation - Orthopedics 10/02/22 1704 MR#: [id number] Acct: [id number] Name: MEGAN GIMENEZ Rep #:[id number] : [...] or night sweats. No history of trauma [facility] Medical History Abnormal stress test Acute bronchitis with bronchospasm Acute respiratory insufficiency Ambulates with cane Aortic stenosis Arthritis Asthma Asymptomatic hypertensive urgency Atherosclerotic heart disease of [place] coronary artery without angina pectoris Atrial fibrillation with RVR Back pain Bronchitis CAD in [place] artery Cardiology follow-up encounter Chronic anticoagulation Closed [...] DAILY diabetes 01/22/18 [History Last Taken 10/01/22] jmrwjwct-wmc-aqawi acid 300 mcg-lycopene 600 mcg-lutein 300 mcg [...] to the lab for stat report. [facility] Office: 10/02/22 1721 [...] cc: Dr. Jayme Yang MD ~* Signed [facility] Work Phone: Evaluation note* Diagnosis Onset [...] test acute Aortic stenosis acute CAD in [place] artery acute Chronic anticoagulation acut e Closed head injury acute Contusion of shoulder acute Diabetes acute Myoclonic jerking acute NSVT (nonsustained ventricular tachycardia) acute Paroxysmal atrial fibrillation acute Syncope acute Asymptomatic hypertensive urgency chronic Essential hypertension [facility] Work Phone: Evaluation note* Diagnosis Onset Date Resolution Status LVH (left ventricular hypertrophy) acute Syncope and collapse acute Hyperlipidemia chronic SUPA (obstructive sleep apnea) chronic Pulmonary hypertension [facility] Syncope and collapse acute Hyperlipidemia chronic Syncope and collapse acute Hyperlipidemia chronic Contusion of shoulder resolv ed Myoclonic jerking resolved Syncope resolved [facility] Work Phone: Evaluation note* Diagnosis Onset Date Resolution Status Syncope and collapse acute Hyperlipidemia chronic Syncope and collapse acute Hyperlipidemia chronic Contusion of shoulder resolv ed Myoclonic jerking resolved Syncope resolved Atherosclerotic heart diseas e of [place] coronary artery without angina pectoris acute Fatigue acute Syncope and collapse acute Hyperlipidemia chronic Asthma chronic SUPA (obstructive sleep apnea) chronic Pulmonary hypertension [facility] Work Phone: Evaluation note* Diagnosis Onset Date Resolution Status Syncope and collapse acute Hyperlipidemia chronic Contusion of shoulder resolv ed Myoclonic jerking resolved Syncope resolved Atherosclerotic heart diseas e of [place] coronary artery without angina pectoris acute Fatigue acute Syncope and collapse acute Hyperlipidemia chronic Asthma chronic SUPA (obstructive sleep apnea) chronic Pulmonary hypertension [facility] Work Phone: Evaluation note* Diagnosis Onset Date Resolution Status Contusion of shoulder resolv ed Myoclonic jerking resolved Syncope resolved Atherosclerotic heart diseas e of [place] coronary artery without angina pectoris acute Fatigue acute Syncope and collapse acute Hyperlipidemia chronic Asthma chronic SUPA (obstructive sleep apnea) chronic Pulmonary hypertension [facility] Work Phone: Evaluation note* Diagnosis Onset Date Resolution Status Atherosclerotic heart diseas e of [place] coronary artery without angina pectoris acute Essential hypertension acute Syncope and collapse acute Hyperlipidemia [facility] Work Phone: Evaluation note* Diagnosis Onset Date Resolution Status Asthma chronic SUPA (obstructive sleep apnea) [facility] Work Phone: Evaluation note* Diagnosis Onset Date Resolution Status Asthma chronic SUPA (obstructive sleep apnea) chronic Atherosclerotic heart diseas e of [place] coronary artery without angina pectoris acute Essential hypertension acute Fatigue acute Rib pain acute Syncope and collapse acute Hyperlipidemia [facility] Work Phone: Evaluation note* Diagnosis Onset Date Resolution Status Asthma chronic SUPA (obstructive sleep apnea) chronic Atherosclerotic heart diseas e of [place] coronary artery without angina pectoris acute Essential hypertension acute Fatigue acute Rib pain acute Syncope and collapse acute Hyperlipidemia chronic Anticoagulant long-term use acute Arthralgia of foot, left acu te Arthralgia of right knee acu te Failure of outpatient treatment acute Gout flare acute History of total knee arthroplasty acute Hypokalemia acute Inability to walk acute [facility] Work Phone: Evaluation note* Diagnosis Onset Date Resolution Status Asthma chronic SUPA (obstructive sleep apnea) chronic Atherosclerotic heart diseas e of [place] coronary artery without angina pectoris acute Essential hypertension acute Fatigue acute Rib pain acute Syncope and collapse acute Hyperlipidemia chronic Anticoagulant long-term use acute Arthralgia of foot, left acu te Arthralgia of right knee acu te Failure of outpatient treatment acute Gout flare acute Hypokalemia acute Inability to walk acute [facility] Work Phone: Evaluation note* Diagnosis Onset Date Resolution Status Asthma chronic SUPA (obstructive sleep apnea) chronic Atherosclerotic heart diseas e of [place] coronary artery without angina pectoris acute Essential hypertension acute Fatigue acute Rib pain acute Syncope and collapse acute Hyperlipidemia chronic Anticoagulant long-term use acute Arthralgia of foot, left acu te Arthralgia of right knee acu te Failure of outpatient treatment acute Gout flare acute Hypokalemia acute Inability to walk acute Atherosclerotic heart diseas e of [place] coronary artery without angina pectoris acute Essential hypertension acute Hyperlipidemia [facility] Work Phone: Evaluation note* Diagnosis Onset Date Resolution Status Atherosclerotic heart diseas e of [place] coronary artery without angina pectoris acute Essential hypertension acute Fatigue acute Rib pain acute Syncope and collapse acute Hyperlipidemia chronic Anticoagulant long-term use acute Arthralgia of foot, left acu te Arthralgia of right knee acu te Failure of outpatient treatment acute Gout flare acute Hypokalemia acute Inability to walk acute Atherosclerotic heart diseas e of [place] coronary artery without angina pectoris acute Essential hypertension acute Hyperlipidemia chronic Effusion, right knee acute [facility] Work Phone: Evaluation note* Diagnosis Onset Date Resolution Status Effusion, right knee acute Asthma chronic SUPA (obstructive sleep apnea) chronic [facility] Work Phone: Evaluation note* Diagnosis Onset Date Resolution Status Effusion, right knee acute Asthma chronic SUPA (obstructive sleep apnea) chronic Pneumonia acute HTN (hypertension) chronic [facility] Work Phone: Evaluation note* Diagnosis Onset Date Resolution Status Effusion, right knee acute Asthma chronic SUPA (obstructive sleep apnea) chronic Pneumonia acute Sinus drainage acute Asthma chronic SUPA (obstructive sleep apnea) [facility] Work Phone: Evaluation note* Diagnosis Onset Date Resolution Status Asthma chronic SUPA (obstructive sleep apnea) chronic Pneumonia acute Sinus drainage acute Asthma chronic SUPA (obstructive sleep apnea) [facility] Work Phone: Evaluation note* Diagnosis Onset Date Resolution Status Asthma chronic SUPA (obstructive sleep apnea) chronic Pneumonia acute Sinus drainage acute Asthma chronic SUPA (obstructive sleep apnea) chronic Asthma chronic SUPA (obstructive sleep apnea) chronic Atherosclerotic heart diseas e of [place] coronary artery without angina pectoris acute Essential hypertension acute Syncope and collapse acute Hyperlipidemia chronic [facility] Work Phone: Evaluation note* Diagnosis Onset Date Resolution Status Pneumonia acute Sinus drainage acute Asthma chronic SUPA (obstructive sleep apnea) chronic Asthma chronic SUPA (obstructive sleep apnea) chronic Atherosclerotic heart diseas e of [place] coronary artery without angina pectoris acute Essential hypertension acute Syncope and collapse acute Hyperlipidemia chronic [facility] Work Phone: Evaluation note* Diagnosis Onset Date Resolution Status Asthma chronic SUPA (obstructive sleep apnea) chronic Atherosclerotic heart diseas e of [place] coronary artery without angina pectoris acute Essential hypertension acute Syncope and collapse acute Hyperlipidemia chronic [id number] acute [facility] Work Phone: Evaluation note* Diagnosis Onset Date Resolution Status Asthma chronic SUPA (obstructive sleep apnea) chronic Atherosclerotic heart diseas e of [place] coronary artery without angina pectoris acute Essential hypertension acute Syncope and collapse acute Hyperlipidemia chronic [id number] acute Asthma chronic SUPA (obstructive sleep apnea) chronic Acute bronchitis with bronchospasm acute Acute respiratory insufficiency acute [id number] acute COVID-19 acute Dyspnea on exertion acute Prostate cancer acute [facility] Work Phone: Evaluation note* Diagnosis Onset Date Resolution Status Atherosclerotic heart diseas e of [place] coronary artery without angina pectoris acute Essential hypertension acute Syncope and collapse acute Hyperlipidemia chronic [id number] acute Asthma chronic SUPA (obstructive sleep apnea) chronic Acute bronchitis with bronchospasm acute Acute respiratory insufficiency acute [id number] acute COVID-19 acute Dyspnea on exertion acute Prostate cancer acute [id number] acute [facility] Work Phone: Evaluation note* Diagnosis Onset Date Resolution Status Atherosclerotic heart diseas e of [place] coronary artery without angina pectoris acute Essential hypertension acute Syncope and collapse acute Hyperlipidemia chronic [id number] acute Asthma chronic SUPA (obstructive sleep apnea) chronic Acute bronchitis with bronchospasm acute Acute respiratory insufficiency acute [id number] acute COVID-19 acute Dyspnea on exertion acute Prostate cancer acute [id number] acute Acute dyspnea acute Chronic anticoagulation acut e History of atrial fibrillation acute History of diabetes mellitus acute Pneumonia acute [facility] Work Phone: Evaluation note* Diagnosis Onset Date Resolution Status [id number] acute Asthma chronic SUPA (obstructive sleep apnea) chronic Acute bronchitis with bronchospasm acute Acute respiratory insufficiency acute [id number] acute COVID-19 acute Dyspnea on exertion acute Prostate cancer acute [id number] acute Acute dyspnea acute Chronic anticoagulation acut e History of atrial fibrillation acute History of diabetes mellitus acute Pneumonia acute [facility] Work Phone: Evaluation note* Diagnosis Onset Date Resolution Status Asthma chronic SUPA (obstructive sleep apnea) chronic Acute bronchitis with bronchospasm acute Acute respiratory insufficiency acute Dyspnea on exertion acute Chronic anticoagulation acut e History of atrial fibrillation acute History of diabetes mellitus acute Chest pain acute Diabetes acute Dyspnea acute History of coronary artery disease acute Nausea & vomiting acute [facility] Work Phone: Evaluation note* Diagnosis Onset Date Resolution Status Asthma chronic SUPA (obstructive sleep apnea) chronic Acute bronchitis with bronchospasm acute Acute respiratory insufficiency acute Dyspnea on exertion acute Chronic anticoagulation acut e History of atrial fibrillation acute History of diabetes mellitus acute Chronic anticoagulation acut e Atherosclerotic heart diseas e of [place] coronary artery without angina pectoris acute Chest pain acute Diabetes acute Dyspnea acute Essential hypertension acute History of coronary artery disease acute History of left heart catheterization ([facility]) November, 2 acute Hypokalemia acute Nausea & vomiting acute NSTEMI, initial episode of care acute Atrial fibrillation with RVR chronic [facility] Work Phone: Evaluation note* Diagnosis Onset Date Resolution Status Acute bronchitis with bronchospasm acute Acute respiratory insufficiency acute [id number] acute Dyspnea on exertion acute [id number] acute Chronic anticoagulation acut e History of atrial fibrillation acute History of diabetes mellitus acute [id number] acute [id number] acute [id number] acute QWO-LTMM-1115509 acute Chronic anticoagulation acut e Atherosclerotic heart diseas e of [place] coronary artery without angina pectoris acute Chest pain acute Diabetes acute Dyspnea acute Essential hypertension acute History of coronary artery disease acute History of left heart catheterization ([facility]) November, 2 acute Hypokalemia acute Nausea & vomiting acute Atrial fibrillation with RVR chronic NSTEMI, initial episode of care resolved [id number] acute Asthma chronic Dementia chronic SUPA (obstructive sleep apnea) chronic Pulmonary hypertension chron ic Atherosclerotic heart diseas e of [place] coronary artery without angina pectoris acute Fatigue acute Nonrheumatic aortic (valve) stenosis acute On amiodarone therapy acute Paroxysmal atrial fibrillation acute [facility] Work Phone: Evaluation note* Diagnosis Onset Date Resolution Status [id number] acute Chronic anticoagulation acut e History of atrial fibrillation acute History of diabetes mellitus acute [id number] acute [id number] acute [id number]-7602345 acute UAB-XLVG-2479584 acute Chronic anticoagulation acut e Atherosclerotic heart diseas e of [place] coronary artery without angina pectoris acute Chest pain acute Diabetes acute Dyspnea acute Essential hypertension acute History of coronary artery disease acute History of left heart catheterization ([facility]) November, 2 acute Hypokalemia acute Nausea & vomiting acute Atrial fibrillation with RVR chronic NSTEMI, initial episode of care resolved [id number] acute Asthma chronic Dementia chronic SUPA (obstructive sleep apnea) chronic Pulmonary hypertension chron ic Atherosclerotic heart diseas e of [place] coronary artery without angina pectoris acute Fatigue acute Nonrheumatic aortic (valve) stenosis acute On amiodarone therapy acute Paroxysmal atrial fibrillation acute [facility] Work Phone: Evaluation note* Diagnosis Onset Date Resolution Status [id number] acute Asthma chronic SUPA (obstructive sleep apnea) chronic Acute bronchitis with bronchospasm acute Acute respiratory insufficiency acute [id number] acute COVID-19 acute Dyspnea on exertion acute Prostate cancer acute [id number] acute Acute dyspnea acute Chronic anticoagulation acut e History of atrial fibrillation acute History of diabetes mellitus acute [id number] acute AZI-[id number] acute LVD-TCHA-3526802 acute NNG-YFMU-7721150 acute [facility] Work Phone: Evaluation note* Diagnosis Onset Date Resolution Status Admit Date Cancer of prostate with intermediate recurrence risk (stage T2b-c or Gleaso acute April 06, 2025 8:54am [facility] Work Phone[facility]: Hospital Discharge instructionsAmbulatory Orders* Ears, Nose and Throat Location: None Selected [facility] Work Phone: Hospital Discharge instructions Additional Instructions [facility]plant Used?: [facility] Work Phone: Hospital Discharge instructions Additional [...] Your labs and chest x-ray look good today.[facility] Work Phone: Reason for referral (narrative)No reason for referral information availableWGeorgetown Behavior[facility] Work Phone: Summary Purpose Family History [...] December 18 9:33am Living Will Yes March 24th, 2022 2:30pm Power of Restorative Coordinator Yes December 21 2:30pm Advance Directive Response Recorded Date/ Time Name of Medical Power of Restorative Coordinator DAISY December 21, 2021 2:30pm Advance Directives No December 18, 9:33am Living Will Yes December 21, 2021 2:30pm Power of Restorative Coordinator Yes December 21 2:30pm Advance Directive Response Recorded Date/ Time Advance Directives No December 18, 022 8:33am Living Will Yes December 21, 2021 1:30pm Power of Restorative Coordinator Yes December 21 1:30pm Advance Directive Response Recorded Date/ Time Advance Directives No December 18, 022 8:33am Living Will No October 02 10:54am Power of Restorative Coordinator No October 02, 023 10:54am Advance Directive Response Recorded Date/ Time Name of Medical Power of Restorative Coordinator Daisy Gimenez October 04, 2022 5:42pm Advance Directives No December 18, 8:33am Living Will Yes October 04 5:42pm Power of Restorative Coordinator Yes October 04, 023 5:42pm Advance Directive Response Recorded Date/ Time Name of Medical Power of Restorative Coordinator Daisy Gimenez October 04, 2022 6:42pm Advance Directives No December 18, 022 9:33am Living Will Yes October 04 6:42pm Power of Restorative Coordinator Yes October 04, 2 023 6:42pm Advance Directive Response Recorded Date/ Time Advance Directives No December 18, 2 022 9:33am Living Will Yes October 04 6:42pm Power of Restorative Coordinator Yes October 04, 2 023 6:42pm Advance Directive Response Recorded Date/ Time Name of Medical Power of Restorative Coordinator Faye Urbano, daughter and Natasha Gimenez, March 21, 2023 10:30pm Advance Directives No December 18, 9:33am Living Will Yes March 21, 2023 10:30pm Power of Restorative Coordinator Yes March 21 10:30pm Advance Directive Response Recorded Date/ Time Name of Medical Power of Restorative Coordinator July 30, 2023 7:30am Advance Directives No December 18, 8:33am Living Will Yes July 30 7:30am Power of Restorative Coordinator Yes July 30, 2023 7:30am Advance Directive Response Recorded Date/ Time Name of Medical Power of Restorative Coordinator DAISY GIMENEZ September 03, 2023 11:32pm Advance Directives No December 18 8:33am Living Will Yes September 03 11:32pm Power of Restorative Coordinator Yes September 03, 2023 11:32pm Name of Medical Power of Restorative Coordinator July 30, 2023 7:30am Advance Directive Response Recorded Date/ Time Name of Medical Power of Restorative Coordinator DAISY GIMENEZ September 04, 2023 6:12am Advance Directives No December 18 8:33am Living Will Yes September 04 6:12am Power of Restorative Coordinator Yes September 04, 2023 6:12am Name of Medical Power of Restorative Coordinator July 30, 2023 7:30am Advance Directive Response Recorded Date/ Time Name of Medical Power of Restorative Coordinator DAISY GIMENEZ September 04, 2023 6:12am Name of Medical Power of Restorative Coordinator July 30, 2023 7:30am Name of Medical Power of Restorative Coordinator daughter Faye Wells, and his . September 20, 2023 4:01pm Advance Directives No December 18 8:33am Living Will Yes September 20 4:01pm Power of Restorative Coordinator Yes September 20, 2023 4:01pm Advance Directive Response Recorded Date/ Time Name of Medical Power of Restorative Coordinator DAISY GIMENEZ September 04, 2023 6:12am Name of Medical Power of Restorative Coordinator NATASHA GIMENEZ November 11, 2023 7:52pm Advance Directives No December 18 8:33am Living Will No November 11 7:52pm Power of Restorative Coordinator Yes November 11, 2023 7:52pm Name of Medical Power of Restorative Coordinator July 30, 2023 7:30am Name of Medical Power of Restorative Coordinator daughter Faye Wells, and his . September 20, 2023 4:01pm Advance Directive Response Recorded Date/ Time Name of Medical Power of Restorative Coordinator DAISY GIMENEZ September 04, 2023 6:12am Name of Medical Power of Restorative Coordinator NATASHA GIMENEZ November 11, 2023 10:52pm Advance Directives No December 18 8:33am Living Will Yes November 11 10:52pm Power of Restorative Coordinator Yes November 11, 2023 10:52pm Name of Medical Power of Restorative Coordinator July 30, 2023 7:30am Name of Medical Power of Restorative Coordinator daughter Faye Wells, and his . September 20, 2023 4:01pm Advance Directive Response Recorded Date/ Time Name of Medical Power of Restorative Coordinator DAISY GIMENEZ September 04, 2023 7:12am Name of Medical Power of Restorative Coordinator NATASHA GIMENEZ November 11, 2023 11:52pm Name of Medical Power of Restorative Coordinator daughter Faye Wells, and his . September 20, 2023 5:01pm Advance Directives No October 10:20am Living Will Yes November 19 10:20am Power of Restorative Coordinator Yes November 19, 2023 10:20am Advance Directive Response Recorded Date/ Time Name of Medical Power of Restorative Coordinator NATASHA GIMENEZ November 11, 2023 11:52pm Name of Medical Power of Restorative Coordinator daughter Faye Wells, and his . September 20, 2023 5:01pm Advance Directives No October 10:20am Living Will Yes November 19 10:20am Power of Restorative Coordinator Yes November 19, 2023 10:20am Advance Directive Response Recorded Date/ Time Living Will Yes November 19 10:20am Do you have a Healthcare Power of Restorative Coordinator? Yes November 19, 2023 10:20am Living Will Yes May 27 11:05am Do you have a Healthcare Power of Restorative Coordinator? Yes May 27, 2024 11:05am Advance Directives No May 27, 2024 11:05am Advance Directive Response Recorded Date/ Time Living Will Yes November 19 10:20am Do you have a Healthcare Power of Restorative Coordinator? Yes November 19, 2023 10:20am Living Will Yes May 27 11:05am Do you have a Healthcare Power of Restorative Coordinator? Yes May 27, 2024 11:05am Do you have a Healthcare Power of Restorative Coordinator? Yes February 15, 2025 4:56pm Name of Medical Power of Restorative Coordinator Daisy Gimenez February 15, 2025 4:56pm Advance Directives No May 27, 2024 11:05am Advance Directive Response Recorded Date/ Time Do you have a Healthcare Power of Restorative Coordinator? Yes February 15, 2025 4:56pm Name of Medical Power of Restorative Coordinator Daisy Gimenez February 15, 2025 4:56pm Advance Directives No May 27, 2024 11:05am Hospital Course Note HNO ID: [id number] Author: Marleny Greco MD Service: Hospital Medicine Author Type: [...] Abnormal stress test Aortic stenosis CAD in [place] artery Chronic anticoagulation Closed head injury Contusion [...] Myoclonic jerking Syncope Atherosclerotic heart disease of [place] coronary artery without angina pectoris Fatigue Syncope [...] Myoclonic jerking Syncope Atherosclerotic heart disease of [place] coronary artery without angina pectoris Fatigue Syncope and collapse Hyperlipidemia Asthma SUPA (obstructive sleep apnea) Pulmonary hypertension Chief Complaint SYNCOPE,AFIB HX,ANTI COAGULATION SYNCOPE,AFIB HX,ANTICOAGULATION SYNCOPE,AFIB HX,ANTICOAGULATION SYNCOPE,AFIB HX,ANTICOAGULATION SYNCOPE,AFIB HX,ANTICOAGULATION ABN STRESS TEST, NSVT, SYNCOPE & COLLAPSE, HTN, PA 6-8 WK F/U 6 M FU E ORDER Reason for Visit Contusion of shoulde r Myoclonic jerking Syncope Atherosclerotic heart disease of [place] coronary artery without angina pectoris Fatigue Syncope and collapse Hyperlipidemia Asthma SUPA (obstructive sleep apnea) Pulmonary hypertension Chief Complaint 3 M FU PULMONARY HYPERTENION PULMONARY HYPERTENION INT LABS Reason for Visit Atherosclerotic hear t disease of [place] coronary artery without angina pectoris Essential hypertension Syncope and collapse Hyperlipidemia Chief Complaint 3 M FU PULMONARY HYPERTENION PULMONARY HYPERTENION INT LABS ESSENTIAL HYPERTENSION Reason for Visit Atherosclerotic hear t disease of [place] coronary artery without angina pectoris Essential hypertension Syncope and collapse Hyperlipidemia Chief Complaint PULMONARY HYPERTENIO N PULMONARY HYPERTENION INT LABS ESSENTIAL HYPERTENSION 6 M FU Reason for Visit Asthma SUPA (obstructive sleep apnea) Chief Complaint PULMONARY HYPERTENIO N PULMONARY HYPERTENION INT LABS ESSENTIAL HYPERTENSION 6 M FU 5 MO F/U EORDERS Reason for Visit Asthma SUPA (obstructive sleep apnea) Atherosclerotic heart disease of [place] coronary artery without angina pectoris Essential hypertension Fatigue Rib pain Syncope and collapse Hyperlipidemia Chief Complaint PULMONARY HYPERTENIO N PULMONARY HYPERTENION INT LABS ESSENTIAL HYPERTENSION 6 M FU 5 MO F/U EORDERS S/O- PAIN- COPY PCP RIGHT KNEE Reason for Visit Asthma SUPA (obstructive sleep apnea) Atherosclerotic heart disease of [place] coronary artery without angina pectoris Essential hypertension Fatigue Rib pain Syncope and collapse Hyperlipidemia Chief Complaint PULMONARY HYPERTENIO N PULMONARY HYPERTENION INT LABS ESSENTIAL HYPERTENSION 6 M FU 5 MO F/U EORDERS S/O- PAIN- COPY PCP RIGHT KNEE GOUT FLARE/INABILITY TO AMBULATE Pain Reason for Visit Asthma SUPA (obstructive sleep apnea) Atherosclerotic heart disease of [place] coronary artery without angina pectoris Essential hypertension [...] (obstructive sleep apnea) Atherosclerotic heart disease of [place] coronary artery without angina pectoris Essential hypertension [...] (obstructive sleep apnea) Atherosclerotic heart disease of [place] coronary artery without angina pectoris Essential hypertension [...] (obstructive sleep apnea) Atherosclerotic heart disease of [place] coronary artery without angina pectoris Essential hypertension Fatigue Rib pain Syncope and collapse Hyperlipidemia Anticoagulant long-term use Arthralgia of foot, left Arthralgia of right knee Failure of outpatient treatment Gout flare Hypokalemia Inability to walk Atherosclerotic heart disease of [place] coronary artery without angina pectoris Essential hypertension Hyperlipidemia Chief Complaint 5 MO F/U EORDERS S/O- PAIN- COPY PCP RIGHT KNEE GOUT FLARE/INABILITY TO AMBULATE Pain GOUT FLARE/INABILITY TO AMBULATE 8 wk fu PAIN- COPY PCP PAIN- COPY PCP Reason for Visit Atherosclerotic hear t disease of [place] coronary artery without angina pectoris Essential hypertension Fatigue Rib pain Syncope and collapse Hyperlipidemia Anticoagulant long-term use Arthralgia of foot, left Arthralgia of right knee Failure of outpatient treatment Gout flare Hypokalemia Inability to walk Atherosclerotic heart disease of [place] coronary artery without angina pectoris Essential hypertension [...] (obstructive sleep apnea) Atherosclerotic heart disease of [place] coronary artery without angina pectoris Essential hypertension Syncope and collapse Hyperlipidemia Chief Complaint LEFT WRIST AND LEFT ELBOW PAIN Shortness of breath PNEUMONIA Pneumonia Pneumonia Pneumonia Pneumonia Pneumonia Hospital FU PSA 6 wk FU 1 Y FU PROSTATE CA PROSTATE CA Reason for Visit Pneumonia Sinus drainage Asthma SUPA (obstructive sleep apnea) Asthma SUPA (obstructive sleep apnea) Atherosclerotic heart disease of [place] coronary artery without angina pectoris Essential hypertension Syncope and collapse Hyperlipidemia Chief Complaint PSA 6 wk FU 1 Y FU PROSTATE CA PROSTATE CA CONSULT - PROSTATE Space OAR Gel and temple marker placement for radiat Reason for Visit Asthma SUPA (obstructive sleep apnea) Atherosclerotic heart disease of [place] coronary artery without angina pectoris Essential hypertension Syncope and collapse Hyperlipidemia [id number] Chief Complaint 6 wk FU 1 Y FU PROSTATE CA PROSTATE CA CONSULT - PROSTATE Space OAR Gel and temple marker placement for radiat 6 M FU Malignant neoplasm of prostate . COVID 19, ACUTE BRONCHITIS W/BRONCHOSPASM & GEN Reason for Visit Asthma SUPA (obstructive sleep apnea) Atherosclerotic heart disease of [place] coronary artery without angina pectoris Essential hypertension Syncope and collapse Hyperlipidemia [id number] Asthma SUPA (obstructive sleep apnea) Acute bronchitis with bronchospasm Acute respiratory insufficiency [id number] COVID-19 Dyspnea on exertion Prostate cancer Chief Complaint 6 wk FU 1 Y FU PROSTATE CA PROSTATE CA CONSULT - PROSTATE Space OAR Gel and temple marker placement for radiat 6 M FU Malignant neoplasm of prostate . COVID 19, ACUTE BRONCHITIS W/BRONCHOSPASM & GEN COVID 19, ACUTE BRONCHITIS W/BRONCHOSPASM & GEN Reason for Visit Asthma SUPA (obstructive sleep apnea) Atherosclerotic heart disease of [place] coronary artery without angina pectoris Essential hypertension Syncope and collapse Hyperlipidemia [id number] Asthma SUPA (obstructive sleep apnea) Acute bronchitis with bronchospasm Acute respiratory insufficiency [id number] COVID-19 Dyspnea on exertion Prostate cancer Chief Complaint 1 Y FU PROSTATE CA PROSTATE CA CONSULT - PROSTATE Space OAR Gel and temple marker placement for radiat 6 M FU Malignant neoplasm of prostate COVID 19, ACUTE BRONCHITIS W/BRONCHOSPASM & GEN COVID 19, ACUTE BRONCHITIS W/BRONCHOSPASM & GEN OTV OTV . Reason for Visit Atherosclerotic hear t disease of [place] coronary artery without angina pectoris Essential hypertension Syncope and collapse Hyperlipidemia [id number] Asthma SUPA (obstructive sleep apnea) Acute bronchitis with bronchospasm Acute respiratory insufficiency [id number] COVID-19 Dyspnea on exertion Prostate cancer [id number] Chief Complaint 1 Y FU PROSTATE CA PROSTATE CA CONSULT - PROSTATE Space OAR Gel and temple marker placement for radiat 6 M FU Malignant neoplasm of prostate COVID 19, ACUTE BRONCHITIS W/BRONCHOSPASM & GEN COVID 19, ACUTE BRONCHITIS W/BRONCHOSPASM & GEN OTV OTV . RLL PNEUMONIA, A-FIB, HX Reason for Visit Atherosclerotic hear t disease of [place] coronary artery without angina pectoris Essential hypertension Syncope and collapse Hyperlipidemia [id number] Asthma SUPA (obstructive sleep apnea) Acute bronchitis with bronchospasm Acute respiratory insufficiency [id number] COVID-19 Dyspnea on exertion Prostate cancer [id number] Acute dyspnea Chronic anticoagulation History of atrial fibrillation History of diabetes mellitus Pneumonia Chief Complaint PROSTATE CA PROSTATE CA CONSULT - PROSTATE Space OAR Gel and temple marker placement for radiat 6 M FU Malignant neoplasm of prostate COVID 19, ACUTE BRONCHITIS W/BRONCHOSPASM & GEN COVID 19, ACUTE BRONCHITIS W/BRONCHOSPASM & GEN OTV OTV RLL PNEUMONIA, A-FIB, HX RLL PNEUMONIA, A-FIB, HX RLL PNEUMONIA, A-FIB, HX RLL PNEUMONIA, A-FIB, HX RLL PNEUMONIA, A-FIB, HX . Reason for Visit [id number] Asthma SUPA (obstructive sleep apnea) Acute bronchitis with bronchospasm Acute respiratory insufficiency [id number] COVID-19 Dyspnea on exertion Prostate cancer [id number] Acute dyspnea Chronic anticoagulation History of atrial [...] mellitus Chronic anticoagulation Atherosclerotic heart disease of [place] coronary artery without angina pectoris Chest pain [...] F/U POST RT 6 M FU S/P [facility] 11/13 Reason for Visit Acute bronchitis wit h bronchospasm Acute respiratory insufficiency [id number] Dyspnea on exertion [id number] Chronic anticoagulation History of atrial fibrillation History of diabetes mellitus [id number] Chronic anticoagulation Atherosclerotic heart disease of [place] coronary artery without angina pectoris Chest pain Diabetes Dyspnea Essential hypertension History of coronary artery disease History of left heart catheterization (LHC) Hypokalemia Nausea & vomiting Atrial fibrillation with RVR NSTEMI, initial episode of care [id number] Asthma Dementia SUPA (obstructive sleep apnea) Pulmonary hypertension Atherosclerotic heart disease of [place] coronary artery without angina pectoris Fatigue Nonrheumatic [...] F/U POST RT 6 M FU S/P [facility] 11/13 PAIN- COPY PCP Reason for Visit [id number] Chronic anticoagulation History of atrial fibrillation History of diabetes mellitus [id number] Chronic anticoagulation Atherosclerotic heart disease of [place] coronary artery without angina pectoris Chest pain Diabetes Dyspnea Essential hypertension History of coronary artery disease History of left heart catheterization (LHC) Hypokalemia Nausea & vomiting Atrial fibrillation with RVR NSTEMI, initial episode of care [id number] Asthma Dementia SUPA (obstructive sleep apnea) Pulmonary hypertension Atherosclerotic heart disease of [place] coronary artery without angina pectoris Fatigue Nonrheumatic aortic (valve) stenosis On amiodarone therapy Paroxysmal atrial fibrillation Chief Complaint CONSULT - PROSTATE Space OAR Gel and temple marker placement for radiat 6 M FU Malignant neoplasm of prostate COVID 19, ACUTE BRONCHITIS W/BRONCHOSPASM & GEN COVID 19, ACUTE BRONCHITIS W/BRONCHOSPASM & GEN OTV OTV RLL PNEUMONIA, A-FIB, HX RLL PNEUMONIA, A-FIB, HX RLL PNEUMONIA, A-FIB, HX RLL PNEUMONIA, A-FIB, HX RLL PNEUMONIA, A-FIB, HX RLL PNEUMONIA, A-FIB, HX OTV OTV OTV OTV . Amb Documentation Reason for Visit [id number] Asthma SUPA (obstructive sleep apnea) Acute bronchitis with bronchospasm Acute respiratory insufficiency [id number] COVID-19 Dyspnea on exertion Prostate cancer [id number] Acute dyspnea Chronic anticoagulation History of atrial fibrillation History of diabetes mellitus [id number] Chief Complaint Admit Date EORDER- PSA October [...] pm SOB February 15, 2025 4:31p m Chief Complaint Admit Date HX CAD, FATIGUE December 10, 2024 6:1 2am HX CAD, FATIGUE December 10, 2024 1:4 8pm PSA December 25, 2024 9:5 0am CKD January 06, 2025 2:33 pm SOB February 15, 2025 4:31p m EORDER April 03, 2025 10:27 am 6 MONTH PROSTATE, PSA PRIOR April 06 8:54am Reason for Visit Admit Date Cancer of prostate with inte rmediate recurrence risk (stage T2b-c or Gleaso April 06, 2025 8:54am Chief Complaint Admit Date SOB February 15, 2025 4:31p m EORDER April 03, 2025 10:27 am 6 MONTH PROSTATE, PSA PRIOR April 06 8:54am 6 M F/U May 20, 2025 8: 49am Reason for Visit Admit Date Cancer of prostate with inte rmediate recurrence risk (stage T2b-c or Gleaso April 06, 2025 8:54am Oral thrush May 20, 2025 8: 49am Asthma May 20, 2025 8: 49am SUPA (obstructive sleep apnea) April 8:49am Pulmonary hypertension May 20, 2025 8:49am Additional Source Comments (unrecognized sect ion and content) No Status Records FoundNo Status Records FoundNo Status Records Found INFORMATION SOURCE (unrecogn ized section and content) DATE CREATED AUTHOR 02/24/2020 [facility] DATE CREATED AUTHOR AUTHOR'S ORGANIZ ATION 02/25/2020 [facility] DATE CREATED AUTHOR AUTHOR'S ORGANIZ ATION 05/22/2025 [facility] Goals (unrecognized section and content) Goals [...] Care Provider, Referring Provider Active Dyan Chavez [employer], [employer]UC[employer] TEACHER-C Attending Provider Active Team Status: Active Member [...] MD Primary Care Provider Active Dyan Chavez [employer], [employer]UC[employer] TEACHER-C Attending Provider, Referring P rovider Active Team [...] Care Provider, Referring Provider Active Emerald Campos [employer] TE[employer]ER, [employer]UCATION TEACHER-C Attending Provider Active Team Status: Inactive Member [...] Marie MD Other Provider Active Teja Jefferson [employer] TE[employer]ER, [employer]UC[employer] TEACHER-C Other Provider Active Dyan Chavez [employer]UC[employer] TE[employer]ER, [employer]UC[employer] TEACHER-C Other Provider Active Faye Martinez PA, PA [...] Marie MD Other Provider Active Teja Jefferson [employer]UC[employer] TEACHER, [employer]UC[employer] TEACHER-C Other Provider Active Dyan Chavez [employer]UC[employer] TEACHER, [employer]UCATION TEACHER-C Other Provider Active Faye Martinez PA, PA [...] Marie MD Other Provider Active Teja Jefferson [employer]UC[employer] TEACHER, [employer]UCATION TEACHER-C Other Provider Active Dyan Chavez [employer]UC[employer] TEACHER, [employer]UCATION TEACHER-C Other Provider Active Faye Martinez PA, PA [...] Marie MD Other Provider Active Teja Jefferson [employer]UC[employer] TEACHER, [employer]UCATION TEACHER-C Other Provider Active Dyan Chavez [employer]UC[employer] TEACHER, [employer]UCATION TEACHER-C Other Provider Active Faye Martinez PA, PA Other Provider Active Dr. Js Lee , Other Provider Active Dr. Boris Bojorquez MD Attending Provider Active Team Status: Inactive Member Role Status Dates Dr. Jayme Yang MD Primary Care Provider, Referring Provider Active Dr. Keo Montemayor , Attending Provider Active Team Status: Active Member [...] Marie MD Other Provider Active Teja Jefferson [employer] TE[employer]ER, [employer]UC[employer] TEACHER-C Other Provider Active Dyan Chavez [employer]UC[employer] TEACHER, [employer]UCATION TEACHER-C Other Provider Active Faye Martinez PA, PA [...] 2024 End: November 17, 2024 Emerald Campos [employer] TE[employer]ER, [employer]UCATION TEACHER-C Attending Provider Active Start: November 17, 2024 End: November 17, 2024 Team Status: Inactive Member Role Status Dates Dr. Jayme Yang MD Primary Care Provider Active Start: November 27, 2024 End: November 27, 2024 Dr. Jayme Yang MD Referring Provider Active Start: November 27, 2024 End: November 27, 2024 Teja Jefferson [employer] TE[employer]ER, [employer]UC[employer] TEACHER-C Attending Provider Active S tart: November 27, 2024 End: November 27, 2024 Team Status: Inactive Member Role Status Dates Dr. Jayme Yang MD Primary Care Provider Active Start: December 10, 2024 End: December 10, 2024 Teja Jefferson [employer] TE[employer]ER, [employer]UC[employer] TEACHER-C Attending Provider Active S tart: December 10, 2024 End: December 10, 2024 Teja Jefferson [employer]UC[employer] TEACHER, [employer]UC[employer] TEACHER-C Referring Provider Active S tart: December 10, 2024 End: December 10, 2024 Team Status: Active Member Role Status Dates Dr. Jayme Yang MD Primary Care Provider Active Start: December 10, 2024 Teja Jefferson [employer] TE[employer]ER, [employer]UCATION TEACHER-C Referring Provider Active S tart: December 10, 2024 Teja Jefferson [employer]UC[employer] TEACHER, [employer]UCATION TEACHER-C Other Provider Active Start : December 10, [...] March 04, 2025 End: March 04, 2025 Team Status: Active Member Role/Relationship Status Dates Dr. Jayme Yang MD Primary Care Provider Active Team Status: Inactive Member Role/Relationship Status Dates Dr. Jayme Yang MD Primary Care Provider Active Start: December 10, 2024 End: December 10, 2024 Teja Jefferson [employer] TE[employer]ER, [employer]UC[employer] TEACHER-C Attending Provider Active S tart: December 10, 2024 End: December 10, 2024 Teja Jefferson [employer]UC[employer] TEACHER, [employer]UC[employer] TEACHER-C Referring Provider Active S tart: December 10, 2024 End: December 10, 2024 Team Status: Active Member Role/Relationship Status Dates Dr. Jayme Yang MD Primary Care Provider Active Start: December 10, 2024 Teja Jefferson [employer] TEACHER, [employer]UCATION TEACHER-C Referring Provider Active S tart: December 10, 2024 Teja Jefferson [employer]UC[employer] TEACHER, [employer]UC[employer] TEACHER-C Other Provider Active Start : December 10, 2024 Dr. Clifford Cordero MD Attending Provider Activ e Start: December 10, 2024 Team Status: Inactive Member Role/Relationship Status Dates Dr. Jayme Yang MD Primary Care Provider Active Start: December 25, 2024 End: December 25, 2024 Dr. Surinder Larson MD Attending Provider Active Start: December 25, 2024 End: December 25, 2024 Dr. Surinder Larson MD Referring Provider Active Start: December 25, 2024 End: December 25, 2024 Team Status: Inactive Member Role/Relationship Status Dates Dr. Jayme Yang MD Primary Care Provider Active Start: January 06, 2025 End: January 06, 2025 Dr. Juany Bellamy DO Attending Provider Active Start: January 06, 2025 End: January 06, 2025 Dr. Juany Bellamy DO Referring Provider Active Start: January 06, 2025 End: January 06, 2025 Team Status: Inactive Member Role/Relationship Status Dates Dr. Jayme Yang MD Primary Care Provider Active Start: February 15, 2025 End: February 15, 2025 Dr. Jonathan Lopez MD Attending Provider Active S tart: February 15, 2025 End: February 15, 2025 Dr. Jonathan Lopez MD Emergency Provider Active S tart: February 15, 2025 End: February 15, 2025 Team Status: Inactive Member Role/Relationship Status Dates Dr. Jayme Yang MD Primary Care Provider Active Start: March 04, 2025 End: March 04, 2025 Dr. Marycruz Yen MD Attending Provider Active Start: March 04, 2025 End: March 04, 2025 Dr. Marycruz Yen MD Referring Provider Active Start: March 04, 2025 End: March 04, 2025 Team Status: Active Member Role/Relationship Status Dates Dr. Jayme Yang MD Primary Care Provider Active Start: April 03, 2025 Dr. Keo Montemayor DO Attending Provider Active Start: April 03, 2025 Dr. Keo Montemayor DO Referring Provider Active Start: April 03, 2025 Team Status: Inactive Member Role/Relationship Status Dates Dr. Jayme Yang MD Primary Care Provider Active Start: April 06, 2025 End: April 06, 2025 Dr. Keo Montemayor DO Attending Provider Active Start: April 06, 2025 End: April 06, 2025 Team Status: Inactive Member Role/Relationship Status Dates Dr. Jayme Yang MD Primary Care Provider Active Start: April 03, 2025 End: April 03, 2025 Dr. Keo Montemayor DO Attending Provider Active Start: April 03, 2025 End: April 03, 2025 Dr. Keo Montemayor DO Referring Provider Active Start: April 03, 2025 End: April 03, 2025 Team Status: Inactive Member Role/Relationship Status Dates Dr. Jayme Yang MD Primary Care Provider Active Start: February 15, 2025 End: February 15, 2025 Dr. Jonathan Lopez MD Attending Provider Active S tart: February 15, 2025 End: February 15, 2025 Dr. Jonathan Lopez MD Emergency Provider Active S tart: February 15, 2025 End: February 15, 2025 Team Status: Inactive Member Role/Relationship Status Dates Dr. Jayme Yang MD Primary Care Provider Active Start: March 04, 2025 End: March 04, 2025 Dr. Marycruz Yen MD Attending Provider Active Start: March 04, 2025 End: March 04, 2025 Dr. Marycruz Yen MD Referring Provider Active Start: March 04, 2025 End: March 04, 2025 Team Status: Inactive Member Role/Relationship Status Dates Dr. Jayme Yang MD Primary Care Provider Active Start: April 03, 2025 End: April 03, 2025 Dr. Keo Montemayor DO Attending Provider Active Start: April 03, 2025 End: April 03, 2025 Dr. Keo Montemayor DO Referring Provider Active Start: April 03, 2025 End: April 03, 2025 Team Status: Inactive Member Role/Relationship Status Dates Dr. Jayme Yang MD Primary Care Provider Active Start: April 06, 2025 End: April 06, 2025 Dr. Keo Montemayor DO Attending Provider Active Start: April 06, 2025 End: April 06, 2025 Team Status: Inactive Member Role/Relationship Status Dates Dr. Jayme Yang MD Primary Care Provider Active Start: May 20, 2025 End: May 20, 2025 Dr. Jayme Yang MD Referring Provider Active Start: May 20, 2025 End: May 20, 2025 Emerald Campos [employer], [employer] Attending Provider Active Start: May 20, 2025 End: May 20, 2025 FOR RECORDS PERTAINING TO PATIENTS WHO [...] BE BASED ON THE PRIMARY CLINICAL RECORDS. [employer] provides no warranty or guarantee of the accuracy or completeness of information in this document.
[2025-05-29 12:47] VITALS: BP 156/70; PULSE 67; RESP 18; TEMP 36.3; O2SAT 94
== END 2025-05-29 12:51 | disposition home or self-care (01) ==
PROVIDERS: Emergency Provider Emergency Medicine; PCP Family Medicine; Visit Provider Emergency Medicine
DX: S83.92XA Sprain of unspecified site of left knee, initial encounter (principal); I11.0 Hypertensive heart disease with heart failure; I50.9 Heart failure, unspecified; I48.0 Paroxysmal atrial fibrillation; E11.9 Type 2 diabetes mellitus without complications; E78.00 Pure hypercholesterolemia, unspecified; S80.02XA Contusion of left knee, initial encounter; Z87.891 Personal history of nicotine dependence; I25.10 Atherosclerotic heart disease of native coronary artery without angina pectoris; Z85.46 Personal history of malignant neoplasm of prostate; G47.33 Obstructive sleep apnea (adult) (pediatric); Z99.89 Dependence on other enabling machines and devices; F32.A Depression, unspecified; Z79.899 Other long term (current) drug therapy; F41.9 Anxiety disorder, unspecified; K21.9 Gastro-esophageal reflux disease without esophagitis; Z90.49 Acquired absence of other specified parts of digestive tract; Z96.653 Presence of artificial knee joint, bilateral; W18.30XA Fall on same level, unspecified, initial encounter
CPT/HCPCS: 73564; 99282

== ENCOUNTER → 2025-06-09 | Outpatient (CLI) | payer MEDICARE, SELFPAY | END | disposition home or self-care (01) | LOC: SL 16:06 | PROVIDERS: PCP Family Medicine; Visit Provider Nurse Practitioner Acute Care | DX: Z46.89 Encounter for fitting and adjustment of other specified devices (principal) ==

== ENCOUNTER → 2025-07-22 | Outpatient (CLI) | payer MEDICARE, SELFPAY | END | disposition home or self-care (01) | LOC: SL 08:28 | PROVIDERS: PCP Family Medicine; Visit Provider Nurse Practitioner Acute Care | DX: Z00.00 Encounter for general adult medical examination without abnormal findings (principal) ==

== ENCOUNTER → 2025-07-23 | Outpatient (CLI) | payer MEDICARE, SELFPAY | END | disposition home or self-care (01) | LOC: MTLAB 10:47 | PROVIDERS: PCP Family Medicine; Referring Provider Internal Medicine Cardiovascular Disease; Visit Provider Internal Medicine Cardiovascular Disease | DX: I48.0 Paroxysmal atrial fibrillation (principal); Z79.899 Other long term (current) drug therapy | CPT/HCPCS: 36415; 71046; 84439; 84443 ==